=== PATIENT | male | born 1955 | race Caucasian/White ===

== ENCOUNTER 2021-12-02 10:06 | Outpatient (CLI) | payer BC, SELFPAY ==
--- NOTE | 2021-12-02 10:15 | CRLHL7_ITS ---
For Patients: As a result of the Century Cures Act, medical imaging exams and procedure reports are released immediately into your electronic medical record. You may view this report before your referring provider. If you have questions, please contact your health care provider. Indication: Right hemicolectomy. Pre takedown. Technique: Single-contrast enema examination performed. Fluoroscopic time 3 minutes 19 seconds. IMPRESSION: Postop changes partial right colon resection. Right lower quadrant ostomy. Mild sigmoid diverticulosis. No stenosis or obstruction to the flow barium. Normal appearance of the ostomy. Dictated by Alexey Carter MD @ 12/02/2021 12:24:27 PM (Electronically Signed)
--- OUTSIDE RECORDS SUMMARY | 2021-12-28 12:11 | XMS_ITS | Encounter Summary ---
:1955 Author Organization [facility] Address [address] [place] [address] Care Team Providers Name Role Phone Samantha Stauffer MD Primary Care Provider [phone] Encounter Details Date Type Department Care Team Description 08/27/2021 Office Visit Maria Esther Mckeon on's disease (HRC) (Primary Dx); [facility] MD Prem Dyskinesia due to Parkinson's disease (H RC) Neurology [address] [place] [address] [place], [place] [phone] [address] Social History Tobacco Use Types Packs/Day Years Used Date Smoking Tobacco: Never Smokeless Tobacco: Never Alcohol Use Standard Drinks/Week Comments Not Currently 0 (1 standard drink = 0.6 oz pure alcoho l) Sex Assigned at Date Recorded Not on file documented as of this encounter Last Filed Vital Signs Vital Sign Reading Time Taken Comments Blood Pressure 111/66 08/27/2021 9:05 AM CDT Pulse 95 08/27/2021 9:05 AM CDT Temperature - - Respiratory Rate - - Oxygen Saturation - - Inhaled Oxygen Concentration - - Weight 73.5 kg (162 lb) 08/27/2021 9:05 AM CDT Height - - Body Mass Index 20.8 12/12/2019 6:32 AM CDT documented in this encounter Progress Notes Maria Esther Phan MD - 08/27/2021 9:00 AM CDT Chief complaint: Followup Parkinson's. ?? History of present illness I am seeing today this 66-year-old man who comes in accompanied by his in follow-up of his Parkinson's disease. Since our last visit he had a multitude of health problems which I have reviewed through the chart today with an extensive review and also obtained a history from the patient and his . Shortly after he saw me last October he developed increased dyskinesia, and at that time we were concerned also about his dysphagia. He was diagnosed eventually with esophageal achalasia, as well as suffered silent aspiration with the pulmonary abscess for which he was hospitalized in December. He recovered from that, and then he had an EGD with Botox injections for the achalasia, and was doing reasonably well at that time with his rehabilitation, however he developed increased constipation, which eventually led to a colonic perforation for which he was again hospitalized in February and at that time he had fundoplication, and also required partial colectomy because of colonic perforation and now he has an ileostomy, with takedown ileostomy and anastomosis planned for sometime in November. He is receiving still therapies now at home and he has some home health therapies, and he has been gaining weight.In terms of his Parkinson's his symptoms have been up and down typically with every time he had a infection developing more dyskinesias. He does wear off about 30 minutes-1 hour with every dose of Rytary and he is currently taking 1 capsule of the 245 mg strength every 5 or 6 hours. He may be a littlemore forgetful with his medications but denies any hallucinations. He has not had any recent falls, but he does have freezing of gait. He does not freeze on stairs. He has not had any fainting episodes recently. He has been gaining more weight. He feels that his dyskinesias are very well controlled currently with the current dose of Gocovri. He is following the recommendations he has been given for his dysphagia and he has not had any further aspiration episodes. I reviewed the past medical and surgical history, family and social history, current medications, allergies from electronic health record. There have not been any changes otherwise. ?? The review of system was significant for what is mentioned above, and others negative. 111/66, 95, 162 lb. MiniCog 5/5?? UPDRS Motor 22 Impression: 1. Parkinson disease stage 2, while on. 2. Status post bilateral deep brain subthalamic stimulation. Likely needs a new battery. 3. Parkinson disease dyskinesia, well controlled on Gocovri. 4. Dysarthria 5. Dysphagia 6. Recent pulmonary abscess. 7. Recent colonic perforation. 8. Status post recent ileostomy. 9. Esophageal achalasia ?? Discussion: His examination from the Parkinson's standpoint is remarkable stable. This is a good thing and he does not have any dyskinesias at this point. He is battery was last changed about a year ago and they monitor the voltage at home it looks good. He had a rough course of the last several months in the setting of multiple general medical issues. It appears that most of these things are now under control and only next obstacle would be the takedown ileostomy procedure. Hopefully there is not going to be any perioperative problems associated with that. It will be important to carefully regulate his bowel habits after that, and he will pursue that of course through the gastroenterology service. With regard to his Parkinson's we do have the option of increasing the frequency of the Rytary, and we even discussed options for cognitive enhancers although he has cognitive dysfunction currently is minimum. Wedecided not to make any changes but I did tell him that he can take his Rytary every 4 hours if neces joanie while he is awake provided that does not cause an increase in dyskinesias. I reviewed his prescriptions. He recently received a course of therapies, and therefore I am not going to institute any additional therapies at this point. ?? Recommendations: 1. Continue with the same medications for Parkinson's and dyskinesia. 2. It is okay to take the Rytary every 4 or every 5 hours. It is important to try to take it on an empty stomach, however it is probably not advisable to delay a does because of food if you are wearingoff. 3. Continue to exercise as much as possible. 4. Let me know if there is any problems following the next surgery. 5. Otherwise I would like to see you back in 6 months time. Time spent: 44 min Review of chart (notes, data): 8 min History and examination: 17 min Counselin min Coordination of care: 1 min Documentation: 6 min Maria Esther Phan MD. 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
--- OUTSIDE RECORDS SUMMARY | 2021-12-28 12:11 | XMS_ITS | Clinical Summary ---
:1955 Author Organization [facility] Address [address] [place] [address] Care Team Providers Name Role Phone Samantha Stauffer MD Primary Care Provider [phone] Source Comments You are receiving this document as you are listed as the primary care provider,follow-up provider, or the patient has been referred to you for consultation.This is in compliance with the Medicare and Medicaid EHR Incentive Program,which states Providers who transition their patient to another setting of careor provider of care or refers their patient to another provider of care shouldprovide summarycare record for each transition of care or referral. [facility] Allergies No known active allergies Medications Medication Sig Dispensed Refills Start Date End Date Status pravastatin (AKA Take 1 Tab by 90 Tab 3 01/28/2014 Active PRAVACHOL) 80 MG tablet mouth daily at bedtime. ascorbic acid (AKA Take 500 mg by 0 06/18/2014 Active VITAMIN C) 500 MG mouth as needed tablet for Other. cholecalciferol (AKA Take 2,000 0 05/19/2015 Active VITAMIN D3) 2000 UNITS Units by mouth tablet Daily. ibuprofen (MOTRIN) 200 Take 200-400 mg 0 Active MG tablet by mouth every 4 hours as needed for Pain. Amantadine HCl ER Take 2 Capsules 60 Capsule 11 07/15/2020 Active (GOCOVRI) 137 MG CP24 by mouth daily at bedtime. omeprazole (PRILOSEC) Take 20 mg by 0 Active 20 MG capsule mouth daily. Take 1 hour before a meal. citalopram (CELEXA) 10 TAKE 1 TABLET 90 Tablet 3 05/19/2021 Active MG tablet DAILY cyanocobalamin 500 MCG Take by mouth. 0 Active tablet carbidopa-levodopa Take 1 Capsule 360 Capsule 3 08/27/2021 Active (RYTARY) 61.25-245 MG by mouth 4 ER capsule times a day. 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 Dysphagia, oropharyngeal phase 11/19/2020 Dysphagia 11/13/2020 Lumbar radiculopathy 11/02/2018 Vasovagal syncope 05/04/2018 Vitamin D deficiency 01/30/2014 Parkinson's disease 01/28/2014 Hyperlipidemia 01/28/2014 Hyperlipidemia 08/17/2009 Dyskinesia due to Parkinson's disease 08/17/2009 Overview: Parkinson's Disease (PD) Resolved Problems Problem Noted Date Resolved Date Impaired functional mobility, balance, gait, and endurance 0 12/04/2020 12/04/2020 Encounters Date Type Specialty Care Team Description 10/14/2021 Telephone Neurology Maria Esther Phan MD Reena or Authorization Request (Amantadine HCl ER (GOCOVRI) 137 MG CP24) from Last 3 Months Immunizations Name Administration Dates Next Due H1n1 Miv Sanofi 3+ Yr (Injected) 05/05/2009 TDAP (BOOSTRIX) 05/22/2007 Tdap 05/22/2007 Family History Medical History Relation Name Comments Other Father parkinson's Coronary Artery Disease Mother and fath er, both in 70s Hyperlipidemia Mother and father Blindness Brother and sister, daniele enital Cancer, Other Sister brain cancer Relation Name Status Comments Father Mother Brother Sister Social History Tobacco Use Types Packs/Day Years Used Date Smoking Tobacco: Never Smokeless Tobacco: Never Alcohol Use Standard Drinks/Week Comments Not Currently 0 (1 standard drink = 0.6 oz pure alcoho l) Sex Assigned at Date Recorded Not on file Last Filed Vital Signs Vital Sign Reading Time Taken Comments Blood Pressure 111/66 08/27/2021 9:05 AM CDT Pulse 95 08/27/2021 9:05 AM CDT Temperature 36 ??C (96.8 ??F) 12/12/2019 8:22 AM CDT Respiratory Rate 16 12/12/2019 8:22 AM CDT Oxygen Saturation 100% 12/12/2019 9:00 AM CDT Inhaled Oxygen Concentration - - Weight 73.5 kg (162 lb) 08/27/2021 9:05 AM CDT Height 188 cm (6' 2) 12/12/2019 6:32 AM CDT Body Mass Index 20.8 12/12/2019 6:32 AM CDT Plan of Treatment Health Maintenance Due Date Last Done Comments Hep C Screening (Preventive 1955 Services) HepB (1) 1955 COVID-19 Vaccine (#1) 1955 FIT Colon Cancer Screening 2000 Zoster/Shingles (1 of 2) 2006 Adult Preventive Visit 01/28/2015 01/28/2014 Cholesterol 01/28/2019 01/28/2014, 08/17/2009 Pneumococcal 65+ Yrs (1 - 2021 PCV) Influenza (#1) 2022 03/11/2021, 05/05/2009 DTaP/Tdap/Td (4 - Tdap) 06/02/2027 06/02/2017, 05/22/2007, 05/22/2007, Additional history exists HepA Aged Out No longer eligib le based on patient 's age to complete this topic Hib Aged Out No longer eligib le based on patient 's age to complete this topic IPV (Polio) Aged Out No longer eligib le based on patient 's age to complete this topic MCV4 Aged Out No longer eligib le based on patient 's age to complete this topic Medical Devices Implanted Type Area Rn Icu Device Shelf Model / Identifier Expiration Serial / Date Lot [employer] - [id number] DEVICE Right: Medtronic - 2020 [id number] / Implanted: Qty: 1 on 12/12/2019 by Jorge L Kaiser MD at [facility] Neurological [id number] / NA Insurance Payer Benefit Plan / Subscriber ID Effective Dates Phone Addre ss Type Group MEDICARE MEDICARE PART [id number] 2018-Dong [phone] Medicare A t 27 BCBS BCBS OUT OF [id number] 2017-Ignacio [address] [address] [facility] [place] [address] [address] Andrew Pang Personal/Famil Self 1955 [address] Andrew Pang Personal/Famil Self 1955 [address] [address] Advance Directives Latest Code Status on File Code Status Date Activated Date Inactivated Comments Full Code 12/12/2019 8:30 AM 12/12/2019 9:48 PM Care Teams Almond Blancher Operator Relationship Specialty Start Date End Date Samantha Stauffer MD PCP - General Family Practice 12/12/191999 [place] [address]
--- OUTSIDE RECORDS SUMMARY | 2021-12-28 12:11 | XMS_ITS | Encounter Summary ---
:1955 Author Organization [facility] Address [address] [address] Care Team Providers Name Role Phone Samantha Stauffer MD Primary Care Provider [phone] Reason for Visit Reason Comments Refill Encounter Details Date Type Department Care Team Description 05/18/2021 Refill [facility] Neuroscience Maria Esther Reis MD Refill Center Neurology [address] [facility] [address] [facility] [place] [address] [place] [address] [phone] Social History Tobacco Use Types Packs/Day Years Used Date Smoking Tobacco: Never Smokeless Tobacco: Never Alcohol Use Standard Drinks/Week Comments Not Currently 0 (1 standard drink = 0.6 oz pure alcoho l) Sex Assigned at Date Recorded Not on file documented as of this encounter Plan of Treatment Not on filedocumented as of this encounter Visit Diagnoses Not on filedocumented in this encounter Care Teams Supervisor Contingents Relationship Specialty Start Date End Date Samantha Stauffer MD PCP - General Family Practice 12/12/19[address] [place] [address] documented as of this encounter
--- OUTSIDE RECORDS SUMMARY | 2021-12-28 12:11 | XMS_ITS | Encounter Summary ---
:1955 Author Organization [facility] Address [address] [place] [address] Care Team Providers Name Role Phone Samantha Stauffer MD Primary Care Provider [phone] Reason for Visit Reason Comments Prior Authorization Request Amantadine HCl ER (GOCOVRI ) 137 MG CP24 Encounter Details Date Type Department Care Team Description [facility] MD Prem Request (Amantadine Neurology [address] HCl ER (GOCOVRI) [address] MG CP24) [place] [address] [place], [place] [phone] [id number] Social History Tobacco Use Types Packs/Day Years Used Date Smoking Tobacco: Never Smokeless Tobacco: Never Alcohol Use Standard Drinks/Week Comments Not Currently 0 (1 standard drink = 0.6 oz pure alcoho l) Sex Assigned at Date Recorded Not on file documented as of this encounter Nursing Notes Chloé Denny - 10/14/2021 2:35 PM CDT Approved Prior authorization approved Payer: [facility] CaseId:[id number];Status:Approved;Review Type:Prior Auth;Coverage Start Date:09/14/2021;Coverage End Date:10/14/2022; Approval Details Authorized from September 14, 2021 to October 14, 2022 Chloé Denny - 10/14/2021 1:09 PM CDT ePA requested through [facility]. Chloé Denny 10/14/2021, 1:09 PM Sylvia Burgess - 10/14/2021 9:10 AM CDT There is an approval through October 27 Recd fax from [employer], Please initiate new PA- Amantadine HCl ER (GOCOVRI) 137 MG CP24 Please see the providers right fax folder to review the fax for this TE. Sylvia Burgess 10/14/2021, 9:10 AM documented in this encounter Plan of Treatment Not on filedocumented as of this encounter Visit Diagnoses Not on filedocumented in this encounter Care Teams Double End Tenon Operator Relationship Specialty Start Date End Date Samantha Stauffer MD PCP - General Family Practice 12/12/[address] [place] [address] documented as of this encounter
--- OUTSIDE RECORDS SUMMARY | 2021-12-28 12:11 | XMS_ITS | Encounter Summary ---
:1955 Author Organization [facility] Address [address] [place] [address] Care Team Providers Name Role Phone Samantha Stauffer MD Primary Care Provider Encounter Details Date Type Department Care Team Description 07/14/2021 Telephone [facility] Princess Phan, Center Neurology [address] [place] [address] [place] [address] [phone] (Wo rk) Social History Tobacco Use Types Packs/Day Years Used Date Smoking Tobacco: Never Smokeless Tobacco: Never Alcohol Use Standard Drinks/Week Comments Not Currently 0 (1 standard drink = 0.6 oz pure alcoho l) Sex Assigned at Date Recorded Not on file documented as of this encounter Nursing Notes Chloé Denny - 07/16/2021 4:45 PM CST RN called [facility]. This morning RN asked pharmacy and all they needed was a verbal Rx (because they did not receive our electronic Rx). Current PA in our system is approved from 09/27/2020 - 10/27/2021.Rep re-processed and the PA is approved. Transferred to special handling team for copay / shipping. RN asked if this is something pt can provide and then new rep proceeded to tell me the PA was still rejected. They again called the PA specialist who states the PA IS approved. Pt's copay assistance is rejecting so he will need to call them. RN called pt and relayed this, pt verbalizes understanding. Chloé Denny 07/16/2021, 5:09 PM D CARE TEAM LEAD Doris Slaughter RN - 07/16/2021 4:43 PM CST RN looked at RX, PA approval through 10/2021. Doris Slaughter RN 07/16/2021, 4:44 PM D CARE TEAM LEAD Karin Dill - 07/16/2021 4:39 PM CST Pt calling stating they need a PA for this rx, please advise, thanks! Karin Dill 07/16/2021, 4:40 PM D CARE TEAM LEAD Chloé Denny - 07/16/2021 2:05 PM CST Prescription form not necessary. RN spoke with pharmacy this morning and gave verbal. Sheldon Merlos - 07/16/2021 1:06 PM CST Images from the original note were not included. Recd universal prescription/ pharmacy intake form [facility] Placed in providers right fax Sheldon Mays 07/16/2021, 1:07 PM D CARE TEAM LEAD Chloé Denny - 07/16/2021 9:31 AM CST RN called [facility] (ph. [phone]) to give additional information per pt request - Rep transferred RN to pharmacy staff - They needed Rx confirmation because they did not receive our electronic Rx? RN gave verbal. Then called pt and left a voicemail update. Chloé Denny 07/16/2021, 9:40 AM [place] Terrye J - 07/14/2021 12:11 PM CST Pt is calling regarding medication Nicole MUÑOZ - states insurance is asking for more information please call Cristhian Dueñas 07/14/2021, 12:13 PM D CARE TEAM LEAD documented in this encounter Plan of Treatment Not on filedocumented as of this encounter Visit Diagnoses Not on filedocumented in this encounter Care Teams Computing Tutor Relationship Specialty Start Date End Date Samantha Stauffer MD PCP - General Family Practice 12/12/191999 [place] [address] documented as of this encounter
--- OUTSIDE RECORDS SUMMARY | 2021-12-28 12:11 | XMS_ITS | Encounter Summary ---
:1955 Author Organization [email or web address] Address [address], [place] [address] Care Team Providers Name Role Phone Samantha Stauffer MD Primary Care Provider [phone] Reason for Visit Reason Comments Medication Questions Encounter Details Date Type Department Care Team Description 06/11/2021 Telephone [facility] Doris Aruaz gum puller Questions [address] [place] [phone] Social History Tobacco Use Types Packs/Day Years Used Date Smoking Tobacco: Never Smokeless Tobacco: Never Alcohol Use Standard Drinks/Week Comments Not Currently 0 (1 standard drink = 0.6 oz pure alcoho l) Sex Assigned at Date Recorded Not on file documented as of this encounter Nursing Notes Chloé Denny - 06/16/2021 1:20 PM CST RN called pt again. No answer x 2. Voicemail left again. Chloé Denny 06/16/2021, 1:21 PM ACE BRAZER Chloé Denny - 06/14/2021 3:32 PM CST RN called pt to advise him to call [place] Sanjeev Boyer back regarding his rx. No answer. Detailed voicemail left. Chloé Denny 06/14/2021, 3:33 PM ACE BRAZER Doris Arauz RN - 06/11/2021 1:55 PM CST NSC pt. [facility] Merlin called because they are in need of more information to contact the patient. They have attempted 5 times with not luck. They are requesting a call back at [phone] ACE BRAZER documented in this encounter Plan of Treatment Not on filedocumented as of this encounter Visit Diagnoses Not on filedocumented in this encounter Care Teams Medical Asst Relationship Specialty Start Date End Date Samantha Stauffer MD PCP - General Family Practice 12/12/[address] [place] [id number] documented as of this encounter
--- OUTSIDE RECORDS SUMMARY | 2021-12-28 12:11 | XMS_ITS | Encounter Summary ---
:1955 Author Organization [facility] Address [address] [place] [address] Care Team Providers Name Role Phone Samantha Stauffer MD Primary Care Provider [phone] Encounter Details Date Type Department Care Team Description 02/09/2021 Notes/Orders [facility] Neuroscience Mesfin Morgan SLP Center Speech Therap y [address] [place] [address] [id number] [place] [address] [phone] Social History Tobacco Use Types Packs/Day Years Used Date Smoking Tobacco: Never Smokeless Tobacco: Never Alcohol Use Standard Drinks/Week Comments Not Currently 0 (1 standard drink = 0.6 oz pure alcoho l) Sex Assigned at Date Recorded Not on file documented as of this encounter Progress Notes Mesfin Morgan SLP - 02/09/2021 10:30 AM CDT SPEECH THERAPY DISCHARGE NOTE Andrew Pang [phone] Payor: [employer] [facility] [facility] / Plan: [employer] OUT OF STATE / Product Type: Commercial / Andrew Pang was seen for modified barium swallow study on 11/19/2020. Ongoing therapy was recommended, specifically LSVT loud. Chart review indicates that patient did initiate therapy but at a cliniccloser to his home. There are no further visits scheduled here and patient is considered discharged from treatment. Careepisode closed. Please see previous visit documentation for status at last treatment. JB Samuels 02/09/2021 documented in this encounter Plan of Treatment Not on filedocumented as of this encounter Visit Diagnoses Not on filedocumented in this encounter Care Teams Manager Six Sigma Relationship Specialty Start Date End Date Samantha Stauffer MD PCP - General Family Practice 12/12/19[address] [place] [address] documented as of this encounter
--- OUTSIDE RECORDS SUMMARY | 2021-12-28 12:12 | XMS_ITS | Encounter Summary ---
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 [address] [place], [place] [phone] Social History Tobacco Use Types Packs/Day Years Used Date Smoking Tobacco: Never Smokeless Tobacco: Never Alcohol Use Standard Drinks/Week Comments Yes 0 (1 standard drink = 0.6 oz pure alcoho l) Sex Assigned at Date Recorded Not on file documented as of this encounter Progress Notes Maria Esther Phan MD - 08/30/2019 3:15 PM CDT CHIEF COMPLAINT: Followup Parkinson's. ?? HISTORY OF PRESENT ILLNESS: Mr. Pang was seen in the company of his in followup of his Parkinson's. This visit is conducted via video conference due to restrictions related to the current flyod virus epidemic. The patient's is in attendance. The reason for this visit is that the patientand his have noticed that the patient's mobility has slow non considerably over the last few months. His checked his battery and found it to be at 2.6 volts. When he was checked earlier in the summer it was 2.8 volts. They are concerned about needing a new battery in the current environment,since better changes have been labeled as an elective procedure. His surgery was in early 2014. Thiswas about 5 years ago. He has not had any better changes since that time. He has an Activa generator. He reports that he is doing reasonably well overall. He is not aware of any dyskinesia. He has morewearing off. He takes Rytary 3 times a day. 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 He denies cognitive difficulties or hallucinations. He denies any falls. He exercises regularly even now that he is restricted to his home he exercises regularly at home. He avoids any visits with anybody else other than his who also works from home. He is worried about exposure to the floyd virus. He denies any cognitive difficulties besides the mild executive difficulties that he had before. He denies any problems with control of bladder and bowels. He has not had any other new problems. His swallowing has improved with advise from the speech therapist. He has not had any of the presyncopal episodes that he had previously. ?? I reviewed the past medical and surgical history, family and social history, current medications, allergies from electronic health record. There have not been any changes otherwise. ?? The review of system was significant for what is mentioned above, and others negative. ?? General Appearance: Normal. He is very more bradykinetic than typically Mental Status: Alert, oriented, with normal attention, concentration, language, memory, fund of knowledge. Neurologic: Cranial nerves 2-12 are significant for somewhat pressured speech with mild dysarthria. Slight hearing loss, but otherwise normal. He has somewhat decreased facial expression. Motor: No pronator drift. He can stand on either foot without difficulty. He denies any sensory deficits. There are no tremors. Zuvbpi-fygb-rsfplt is accurate. There is mild bradykinesia. He arises from a chair without difficulty, walks with good stride and arm swing, and his posture is normal, balance appearsadequate.. ?? IMPRESSION: 1. Parkinson disease stage 2, while on. 2. Status post bilateral deep brain subthalamic stimulation. Likely needs a new battery. 3. Parkinson disease dyskinesia, well controlled on Gocovri. ?? DISCUSSION: He likely needs a better change at this point. We talked about the pros and cons of going to the hospital for procedure during the epidemic. He would like to put it off as much as possible. We will increase a little his levodopa to compensate for that. He has some wearing off. He has no dyskinesias. We will go to 4 times a day. We discussed the risk implications in view of the current epidemic. We reviewed again the side effects of the Gocovri. We talked about the process of replacing the battery and which hospital he would have to go to. The patient and his had questions regarding isolation of people who are affected by the virus, and what might be his risk by just going to the hospital. After much discussion we decided to try to continue to work with adjusting the medications until it is safer for him to go to the hospital to have a battery change. Of course if this becomes an emergency that might change things. ?? RECOMMENDATIONS: 1. Continue with the same dose of Gocovri. 2. Increase Rytary to 1 capsule 4 times a day. A new prescription was sent. 3. For now we will hold off of changing the battery for his DBS. They will call me next week if theychange their mind particularly after they tried increased dosage of the levodopa. 4. Otherwise follow-up in the clinic will be in 6 months time, sooner if necessary, and of course wewill keep in touch over the phone. ?? This visit was conducted via tele health through video conference. The patient was located at home. The clinician was located in the clinic. Total time 25 min, 65% counseling. Maria Esther Phan MD. 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
--- OUTSIDE RECORDS SUMMARY | 2021-12-28 12:12 | XMS_ITS | Encounter Summary ---
:1955 [facility] Address [address], [place] [address] Care Team Providers Name Role Phone Samantha Stauffer MD Primary Care Provider [phone] Reason for Visit Reason Comments QUESTIONS, GENERAL Encounter Details Date Type Department Care Team Description 07/24/2020 Telephone [facility] Brower, GENERAL [facility] MD Prem Neurology [address] [facility] [address] [place] [phone] (Wo rk) Social History Tobacco Use Types Packs/Day Years Used Date Smoking Tobacco: Never Smokeless Tobacco: Never Alcohol Use Standard Drinks/Week Comments Yes 0 (1 standard drink = 0.6 oz pure alcoho l) Sex Assigned at Date Recorded Not on file documented as of this encounter Nursing Notes Jeannette Porras RN - 07/27/2020 3:36 PM CST Spoke with Andrew and Natasha. Let them know, Dr. 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 They will also be scheduling a follow up appt with him at [facility]. Jeannette Porras RN Maximo Sadler - 07/24/2020 9:50 AM CST Patient is requesting a call back regarding questions he has about covid vaccine and also about DBS battery. Please call back when available, Thank you. Maximo Julio 07/24/2020, 9:52 AM ICE ADMITTING CLERK documented in this encounter Plan of Treatment Not on filedocumented as of this encounter Visit Diagnoses Not on filedocumented in this encounter Care Teams Auto Technician Mechanic Relationship Specialty Start Date End Date Samantha Stauffer MD PCP - General Family Practice 12/12/191999 [place] [address] documented as of this encounter
--- OUTSIDE RECORDS SUMMARY | 2021-12-28 12:12 | XMS_ITS | Encounter Summary ---
:1955 Author Organization [facility] Address [address], [place] [address] Care Team Providers Name Role Phone Samantha Stauffer MD Primary Care Provider [phone] Reason for Referral Medication Prior Authorization (Routine) - Authorized Specialty Diagnoses / Procedures Referred By Contact Refer red To Contact Maria Esther Phan MD [address] [place], [place] [address] Referral ID Status Reason Start Date Expiration Date Visits V isits Requested Authorized [id number] Authorized 1 1 INE HOSTLER Reason for Visit Reason Onset Date Comments Refill 07/15/2020 Amantadine HCl ER (G OCOVRI) 137 MG CP24 Encounter Details Date Type Department Care Team Description [facility]/15[facility] (Am[facility]adine [facility] MD Prem ER (GOCOVRI) 137 MG Neurology [address] [facility] CP24) [address] [place] [address] [phone] (Wo rk) Social History Tobacco Use Types Packs/Day Years Used Date Smoking Tobacco: Never Smokeless Tobacco: Never Alcohol Use Standard Drinks/Week Comments Yes 0 (1 standard drink = 0.6 oz pure alcoho l) Sex Assigned at Date Recorded Not on file documented as of this encounter Nursing Notes Sheldon Mays - 07/15/2020 8:48 AM CST Fax received requesting Amantadine HCl ER (GOCOVRI) 137 MG CP24 from [facility] Requested Prescriptions Pending Prescriptions Disp Refills ??? Amantadine HCl ER (GOCOVRI) 137 MG CP24 60 Capsule 11 Sig: Take 2 Capsules by mouth daily at bedtime. Sheldon Mays 07/15/2020, 8:49 AM INE HOSTLER documented in this encounter Plan of Treatment Not on filedocumented as of this encounter Visit Diagnoses Not on filedocumented in this encounter Care Teams Heat Transfer Technician Relationship Specialty Start Date End Date Samantha Stauffer MD PCP - General Family Practice 12/12/191999 [place] [address] documented as of this encounter
--- OUTSIDE RECORDS SUMMARY | 2021-12-28 12:12 | XMS_ITS | Encounter Summary ---
:1955 Author Organization [facility] Address [address] [place] [address] Care Team Providers Name Role Phone Lurdes Thomas MD Primary Care Provider Reason for Referral Consult/Transfer Care (Routine) - Closed Specialty Diagnoses / Procedures Referred By Contact Refer red To Contact Diagnoses Parkinson's disease (HRC) Richard Phan MD [address] [place], [place] [address] Referral ID Status Reason Start Date Expiration Date Visits Requ ested Visits Authorized [id number] Closed 09/12/2019 12/11/2020 1 1 Scheduling Instructions Your provider has recommended an appoint ment with Jasmine Ramirez. You may call [phone] to schedule your appoi ntment. If you do not schedule an appointment within the next 1 to 3 business days, we will call you to help arrange your appointment. We suggest you call your [facility] insurance company about your coverage and benefits for this appointment. Reason for Visit Reason Comments QUESTIONS, GENERAL UPDATE Encounter Details Date Type Department Care Team Description 09/02/2019 [facility] MD Prem UPDATE Neurology [address] [place] [address] [place], [place] [phone] (Wo rk) Social History Tobacco Use Types Packs/Day Years Used Date Smoking Tobacco: Never Smokeless Tobacco: Never Alcohol Use Standard Drinks/Week Comments Yes 0 (1 standard drink = 0.6 oz pure alcoho l) Sex Assigned at Date Recorded Not on file documented as of this encounter Progress Notes Richard Phan MD - 09/12/2019 1:56 PM CDT Addended by: RICHARD PHAN on: 09/12/2019 01:56 PM Modules accepted: Orders documented in this encounter Nursing Notes Matt Cates RN - 09/12/2019 1:59 PM CDT Relayed message from Dr. Phan to patient/. They stated understanding and stated that sounds like the best plan. They look forward to hearing from Dr. Kaiser and discussing in more detail. Matt Cates RN 09/12/2019, 2:01 PM Richard Phan MD - 09/12/2019 1:55 PM CDT I put in a consultation request with Dr. Kaiser and asked that he schedule a video visit first to address patient's concerns. Matt Cates RN - 09/12/2019 1:12 PM CDT Spoke with patient and and they stated they are wanting to go through with surgery. They are wondering if an in person pre-op physical would be necessary or if this would be done video visit vs right before surgery? Additionally, they would like more insight into the length of procedure and what they can expect the day of surgery. I informed them this information would likely come from Dr. Kaiser's team once a case request is placed. They would appreciate a call from Dr. Kaiser's team about specific such as where is the patient dropped off, do they come out to car to get him and drop him off there? Dr. Phan, please let Dr. Kaiser know they would be interested in getting surgery completed. Matt Cates RN 09/12/2019, 1:24 PM Matt Cates RN - 09/12/2019 11:36 AM CDT [facility] Matt Cates RN 09/12/2019, 11:37 AM Yenny Ray - 09/12/2019 10:43 AM CDT Pt's meir called back to speak with nurse. Please Advise Matt Cates RN - 09/12/2019 9:48 AM CDT Nurse called patient and relayed message from Dr. Phan. He stated understanding and states he would like to discuss this with his and then give us a call back. He states he will likely call back this morning some time. Nurse waiting on return call. Matt Cates RN 09/12/2019, 9:51 AM Richard Phan MD - 09/12/2019 9:10 AM CDT Please notify patient and that we are restarting battery changes at [facility] with Dr. Kaiser, so if they wish to proceed let me know. Here is the information I received from Dr. Kaiser: After meeting with Dr. Kent and the Neurosurgeons and Neurosurgery Leadership team yesterday evening, we have the support to perform generator replacement surgeries. We will speak with each patient who needs generator replacement, and notify them of the precautions in place given the COVID-19 effort as well as the changes in family participation/support (For most this will be limited to drop off and worm picker on the day of surgery. A family member cannot accompany the patient upstairs). If the patient and family are comfortable with the idea of surgery at this point in time, or choosing a date for surgery, we will do that. If they would prefer to wait, we will continue to touch bases with them periodically. Richard Phan MD - 09/02/2019 4:04 PM CDT Noted. Yenny Ray - 09/02/2019 3:27 PM CDT Pt's calling stating that they have decide to hold off on the surgery for now. Pt will continueto take the carbidopa-levodopa and will rethink the surgery in a few months. Please Advise documented in this encounter Plan of Treatment Scheduled Referrals Name Type Priority Associated Diagnoses Order S chedule Neurosurgery (Non Spine) Referral Routine Parkinson's dise ase Ordered: 09/12/2019 Consult-Adult (HRC) documented as of this encounter Visit Diagnoses Diagnosis Parkinson's disease (HRC) - Primary documented in this encounter Care Teams Tobacco Roller Relationship Specialty Start Date End Date Lurdes Thomas MD PCP - General 06/18/14 12/11/19 documented as of this encounter
--- OUTSIDE RECORDS SUMMARY | 2021-12-28 12:12 | XMS_ITS | Encounter Summary ---
:1955 Author [facility] Address [address] [place] [address] Care Team Providers Name Role Phone Lurdes Thomas MD Primary Care Provider Reason for Visit Reason Comments Concerns Battery getting low Encounter Details Date Type Department Care Team Description 08/28/2019 [facility]phone [facility] Concern s (Battery [facility] MD Prem getting low) Neurology [address] [facility] [address] [place] [address] [place], [place] [phone] (Wo rk) Social History Tobacco Use Types Packs/Day Years Used Date Smoking Tobacco: Never Smokeless Tobacco: Never Alcohol Use Standard Drinks/Week Comments Yes 0 (1 standard drink = 0.6 oz pure alcoho l) Sex Assigned at Date Recorded Not on file documented as of this encounter Nursing Notes Abi Laughlin - 08/29/2019 11:30 AM CDT CA contacted patient's spouse and rescheduled to a video visit tomorrow 08/30/2019 at 3:[address] Sylvester Laughlin 08/29/2019, 11:30 AM Cristhian Dueñas - 08/28/2019 4:18 PM CDT Called pt to change appt left message Cristhian Dueñas 08/28/2019, 4:21 PM Matt Cates RN - 08/28/2019 3:04 PM CDT Shoaib: please call patient/, Natasha and assist in scheduling a video visit with Dr. Phan on 09/13/2019. Please help them set up the [facility]ia madhav. Matt Cates RN 08/28/2019, 3:04 PM Maria Esther Phan MD - 08/28/2019 2:35 PM CDT Let's have a video visit Matt Cates RN - 08/28/2019 1:28 PM CDT Nurse spoke with patient's spouse, Natasha and she states that patient was scheduled with with Dr. Phan on 09/13/2019. She states they just took a battery reading last night and she states it read 2.6 and 2.7. She states she can tell it is low because he is walking is a little off, gait seems much slower. She is unsure how long the patient can wait. Dr. Phan, patient's wondering if they should move 09/13/2019 appointment up and/or switch itto a video visit? They stated they would be interested in a video visit if this is appropriate. Please advise. Matt Cates RN 08/28/2019, 1:34 PM Maria Esther Phan MD - 08/28/2019 1:19 PM CDT Blaise, can you check with him? We do have a process in place if it cannot wait, I.e. if the battery is low AND he is experiencing worsening symptoms.Thanks! Devaughn Perry - 08/28/2019 1:12 PM CDT Andrew Pang's spouse, Natasha is calling in regards to patient's battery getting low. Since clinic is currently not seeing any patients, she is requesting for a return call from care team to discuss planfor battery. Please advise. Devaughn Perry 08/28/2019, 1:13 PM documented in this encounter Plan of Treatment Not on filedocumented as of this encounter Visit Diagnoses Not on filedocumented in this encounter Care Teams Papier Mache' Molder Relationship Specialty Start Date End Date Lurdes Thomas MD PCP - General 06/18/14 12/11/19 documented as of this encounter
--- OUTSIDE RECORDS SUMMARY | 2021-12-28 12:12 | XMS_ITS | Encounter Summary ---
:1955 Author Organization [email or web address] Address [address] [place] [address] Care Team Providers Name Role Phone Samantha Stauffer MD Primary Care Provider Reason for Visit Reason Comments QUESTIONS, GENERAL Battery Encounter Details Date Type Department Care Team Description 12/07/2020 Telephone HealthMaria Esther Brower, [facility] MD Prem (Battery ) Neurology [address] [facility] [address] [place] [address] [place], [place] [phone] [id number] (Wo rk) Social History Tobacco Use Types Packs/Day Years Used Date Smoking Tobacco: Never Smokeless Tobacco: Never Alcohol Use Standard Drinks/Week Comments Not Currently 0 (1 standard drink = 0.6 oz pure alcoho l) Sex Assigned at Date Recorded Not on file documented as of this encounter Nursing Notes Chloé Denny - 12/09/2020 3:53 PM CDT RN called pt's spouse back (ph. [phone]) to relay Dr. Phan' recommendations. Verbalizes understanding and they will adjust pt's RYTARY to tid first. RN also sent recommendations via [employer] message. Encouraged to call back with any other questions or concerns. Otherwise RN will follow up withthem next week. Chloé Denny 12/09/2020, 4:03 PM Maria Esther Phan MD - 12/09/2020 3:14 PM CDT 1. I would try too lower the Rytary to tid first, it's the easiest and it will tell us if the problem gets worse or better (which in turn will answer the question whether thi is due to too much medication (dyskinesia) vs. too little (tremors). 2. As the disease progresses the happy zone, the range of useful plasma levels of l-dopa narrows and the response becomes more erratic. In such cases increasing the stimulation may help tremors, while decreasing the stimulation may help dyskinesias. Again, the firs step will answer this question, and rather than adjusting the stimulation we may decide to switch to a less strong Rytary capsule. 3. Yes. Sometimes people mix and match, eg 245 for th first dose, then 195 for each of the remainingdoses. However that results to two different prescriptions and two different copays. Therefore it's preferable to try and manage symptoms with one strength. 4. It is possible, as slowing down the stomach may affect the absorption of the l-dopa. Prilosec cuts down the acid in the stomach, which may reduce the absorption of l-dopa. In that case I would expect symptoms of too little rather than too much medication (see step 1) Chloé Denny - 12/09/2020 2:05 PM CDT RN called pt/pt's spouse to relay Dr. Phan' recommendations. Verbalize understanding. Spouse is stating that pt is doing much better today and was able to ride his bike. Spouse thinks this looks more like tremors (she sees the muscles consistently christopher in his calves), but the pt is reporting that it is dyskinesia. They have the following questions: 1) Is there a preference with which option pt should start with? 2) They do know how to adjust DBS stimulation, but want to know how/why is he suddenly having problems if he has been in the same med regimen and DBS settings for a long time? How low would they decrease it if this is the preferred option? 3) If an Rx was sent for 195 mg capsules, would he still take 1 cap po QID? 4) Want to double check that this couldn't be related to his GI problems (besides his meds)? Chloé Denny 12/09/2020, 2:20 PM Maria Esther Phan MD - 12/09/2020 11:38 AM CDT Doubt related to vaccine. Could be related to Prilosec, but not very likely. They can hold it for a couple of days and see if things get better. It's not clear to me if this is dyskinesia or tremors. Think it is dyskinesia. If they also think that is the case, we may need to lower the dose of the Rytary. Of course it's a capsule, so that is not very easy to do other than try to take it tid instead ofqid, otherwise I can send a new prescription for the 195 mg capsules to a pharmacy close to whereverthey are now. Another option, if the know how to do it, would be to lower slightly the stimulation on the DBS. Maria Esther Phan MD Chloé Denny - 12/09/2020 9:50 AM CDT Spouse called back - She was able to check on the pt's DBS monitor. States The unit is on, the battery is ok and each side says 2.7 Routing to provider to review. Please see message below as well. Chloé Denny 12/09/2020, 9:50 AM Chloé Denny - 12/09/2020 8:12 AM CDT RN spoke with pt's spouse, Pat, she reports the past two days pt's dyskinesias have gotten really bad. Pt had two falls yesterday, he was standing and his legs got weak/and his legs were flailing. Spouse says pt did hit is head, but doesn't think it was very hard. No external injuries to his head or any neuro changes reported. Pt does have some bruising on his back. On Monday, pt was walking just fine and now spouse feels that he really can't do much by himself since he is shaking so much and havingfull body tremors. RN double checked that pt has been taking RYTARY and GOCOVRI as prescribed. The only other recent med change was adding omeprazole (PRILOSEC) 20 MG daily. Spouse is questioning whether or not this is related to pt's GI issues? Seeing GI provider and they will fax over results from recent tests. Pt is still having GI symptoms and the providers have additional testing to do. They have not checked the DBS settings or battery yet and forgot it at home (they are now camping). Spouse will be driving home today to get the monitor and will let us know in a couple of hours. Spouse is also wondering if any of this could be related to the covid-19 vaccine? Pt was fully vaccinated in August. Chloé Denny 12/09/2020, 8:47 AM Maria Esther Phan MD - 12/07/2020 3:06 PM CDT Please brent the patient's to get some additional information. It sounds like this is dyskinesia.They should check the DBS battery settings to make sure DBS was not accidentally turned off. Also make sure he did not miss any doses of the Gocovri or took extra Rytary accidentally. Thanks! AILT Vanesa Lemos - 12/07/2020 12:36 PM CDT Pt's spouse called stating pt is having some issues. Most of pt's right leg is flailing uncontrollably. They are really concerned about fall risk. Please advise and call pt, thanks! Vanesa Lemos 12/07/2020, 12:38 PM Yenny Ray - 12/07/2020 12:26 PM CDT Pt's meir calling stating that at pt's last appt she forgot to ask about pt Battey function. Please Advise documented in this encounter Plan of Treatment Not on filedocumented as of this encounter Visit Diagnoses Not on filedocumented in this encounter Care Teams [facility] Supervisor Relationship Specialty Start Date End Date Samantha Stauffer MD PCP - General Family Practice 12/12/191999 [place] [address] documented as of this encounter
--- OUTSIDE RECORDS SUMMARY | 2021-12-28 12:12 | XMS_ITS | Encounter Summary ---
:1955 Author Organization [facility] Address [address] [place] [address] Care Team Providers Name Role Phone Samantha Stauffer MD Primary Care Provider [phone] Reason for Visit Auth/Cert Specialty Diagnoses / Procedures Referred By Contact Refer red To Contact Diagnoses Parkinson's disease (HRC) Procedures RIGHT DEEP BRAIN STIMULATOR GENERATOR REPLACEMENT Referral ID Status Reason Start Date Expiration Date Visits Requ ested Visits Authorized [id number] 1 1 Encounter Details Date Type Department Care Team Description 12/12/2019 Hospital Encounter Zoroastrianism Operating Clementine Kaiser MD Parkinson's disease Room 3931 [facility] ([facility]) [address] [place] [address] [place] [address] [phone] Social History Tobacco Use Types Packs/Day Years Used Date Smoking Tobacco: Never Smokeless Tobacco: Never Alcohol Use Standard Drinks/Week Comments Yes 0 (1 standard drink = 0.6 oz pure alcoho l) Sex Assigned at Date Recorded Not on file documented as of this encounter Last Filed Vital Signs Vital Sign Reading Time Taken Comments Blood Pressure 101/58 12/12/2019 9:15 AM CDT Standing Pulse 66 12/12/2019 9:00 AM CDT Temperature 36 ??C (96.8 ??F) 12/12/2019 8:22 AM CDT Respiratory Rate 16 12/12/2019 8:22 AM CDT Oxygen Saturation 100% 12/12/2019 9:00 AM CDT Inhaled Oxygen Concentration - - Weight 78.7 kg (173 lb 9.6 oz) 12/12/2019 6:32 AM CDT Height 188 cm (6' 2) 12/12/2019 6:32 AM CDT Body Mass Index 22.29 12/12/2019 6:32 AM CDT documented in this encounter Discharge Instructions Discharge InstructionsRubina Gomez RN - 12/12/2019 9:00 AM CDT Images from the original note were not included. Deep Brain Stimulation (DBS) Surgery: What to Expect at Home Your recovery During your surgery, the doctor implanted electrodes in your brain and a pulse generator under the skin of your chest. Then the doctor connected the electrodes to the generator. This was done with a wire running under the skin of your head, neck, and shoulder. You will probably have to stay in the hospital for a day or two after surgery. You may have some soreness where your skin was cut. After you go home, you will likely have to go back to the doctor a number of times. The doctor will adjust the system so that it works best for your symptoms. This care sheet gives you a general idea about how long it will take for you to recover. But each person recovers at a different pace. Follow the steps below to get better as quickly as possible. How can you care for yourself at home? Activity ? Rest when you feel tired. ? Be active. Walking is a good choice. ? For 4 to 6 weeks: ? Avoid activities that strain your chest or upper arm muscles. This includes pushing a pre press manager or vacuum and mopping floors. It also includes swimming, or swinging a golf club or tennis racquet. ? Do not raise your arm (the one on the side of your body where the pulse generator is located) above your shoulder. ? Allow your body to heal. Don't move quickly or lift anything heavy until you are feeling better. ? Many people are able to return to work within 1 to 2 weeks after surgery. Diet ? You can eat your normal diet. If your stomach is upset, try bland, low-fat foods like plain rice, broiled chicken, toast, and yogurt. Medicines ? Your doctor will tell you if and when you can restart your medicines. He or she will also giveyou instructions about taking any new medicines or about taking the same medicines in a new way. ? Be safe with medicines. Read and follow all instructions on the label. ? If the doctor gave you a prescription medicine for pain, take it as prescribed. Incision care ? If you have strips of tape on the incision, leave the tape on for a week or until it falls off. ? Keep the incision dry while it heals. Your doctor may recommend sponge baths for about 7 days,but don't get the incision wet. Your doctor will let you know when you may take showers. After a shower, pat the incision dry. ? Don't use hydrogen peroxide or alcohol on the incision. They can slow healing. You may cover the area with a gauze bandage if it oozes fluid or rubs against clothing. Change the bandage every day. ? Don't take a bath or get into a hot tub for the first 2 weeks, or until your doctor tells you it is okay. Ice ? If the area feels sore or tender, put ice or a cold pack on it for 10 to 20 minutes at a time.Put a thin cloth between the ice and your skin. Follow-up care is a yap part of your treatment and safety. Be sure to make and go to all appointments, and call your doctor if you are having problems. It's also a good idea to know your test results and keep a list of the medicines you take. When should you call for help? Call 911 anytime you think you may need emergency care. For example, call if: ? You have a seizure. ? You passed out (lost consciousness). ? You are confused or you don't know where you are. ? You are very sleepy or hard to wake up. ? You have chest pain, are short of breath, or cough up blood. ?? Call your doctor now or seek immediate medical care if: ? You have pain that doesn't get better after you take pain medicine. ? You have symptoms of infection, such as: ? Increased pain, swelling, warmth, or redness. ? Red streaks leading from the area. ? Pus draining from the area. ? A fever. ? You are bleeding a lot from the incision. ? You are sick to your stomach or can't drink fluids. ? You have signs of a blood clot in your leg (called a deep vein thrombosis), such as: ? Pain in your calf, back of the knee, thigh, or groin. ? Redness or swelling in your leg. ??Watch closely for changes in your health, and be sure to contact your doctor if you have problems. Where can you learn more? 1. Go to https://EverCharge/Avenue Rightrary or Veacon/[email or web address]. 2. Enter D150 in the search box. Current as of: April 09, 2019?Content Version: 12.4 ?? [employer]. Care instructions adapted under license by your healthcare professional. If you have questions abouta medical condition or this instruction, always ask your healthcare professional. [employer] disclaims any warranty or liability for your use of this information. Medications: Switching between Tylenol and Ibuprofen every 4 hours will help you manage your pain as well. For example, Tylenol at 10am (according to over the counter instructions) Then at taking Ibuprofen at 2pm (according to over the counter instructions). Then taking Tylenol at 6pm. documented in this encounter Medications at Time of Discharge Medication Sig Dispensed Refills Start Date End Date ascorbic acid (AKA Take 500 mg by 0 06/18/2014 VITAMIN C) 500 MG tablet mouth as needed for Other. cholecalciferol (AKA Take 2,000 Units 0 5 VITAMIN D3) 2000 UNITS by mouth Daily. tablet ibuprofen (MOTRIN) 200 MG Take 200-400 mg by 0 tablet mouth every 4 hours as needed for Pain. pravastatin (AKA Take 1 Tab by 90 Tab 3 01/28/2014 PRAVACHOL) 80 MG tablet mouth daily at bedtime. cephalexin (KEFLEX) 500 Take 1 Capsule by 3 Capsule 0 12/1112/13/2019 MG capsule mouth every 8 hours for 1 day. Amantadine HCl ER Take 2 Capsules by 60 Capsule 11 08/01/2019 07/15/2020 (GOCOVRI) 137 MG CP24 mouth daily at bedtime. carbidopa-levodopa Take 1 Capsule by 360 Capsule 3 0 11/02/2020 (RYTARY) 61.25-245 MG ER mouth 4 times a capsule day. citalopram (CELEXA) 10 MG Take 1 Tablet by 90 Tablet 3 05/2205/24/2020 tablet mouth daily. sertraline (AKA ZOLOFT) Take 1 tablet by 90 tablet 3 201411/13/2020 50 MG tablet mouth daily (every 24 hours). documented as of this encounter Progress Notes Rubina Gomez RN - 12/12/2019 9:49 AM CDT DISCHARGE O: Patient safely discharged to home. D: Patient is alert and oriented x 4. Pt up independently . Discharge criteria met. Pt was able to tolerate po fluids, snacks, and use the restroom. Pt was vitally stable at discharge. A: Discharge instructions and medications reviewed and given to patient and family. Written medication education material provided on Keflex including possible side effects. Prescriptions [facility] in [place]. Belongings checklist reviewed with patient and belongings sent. R: Patient and family verbalizes understanding and teaches back discharge instructions. Patient discharged by: wheelchair with staff. Rubina Gomez RN 9:50 AM 12/12/2019 documented in this encounter H&P Notes Jorge L Kaiser MD - 12/12/2019 9:25 AM CDT Surgery Update for Preop History and Physical For 12/12/2019 scheduled procedure Update to H&P includes: Patient and/or family denies any health changes since the H&P This patient has been evaluated by me today and has been found to be a suitable candidate for surgery. Jorge L Kaiser MD 12/12/2019 Source Note - ProviderRomeo MD - 12/09/2019 12:00 AM CDT documented in this encounter Procedure Notes Jorge L Kaiser MD - 12/12/2019 8:17 AM CDT [facility] Operative Note Surgery Date: 12/12/2019 Primary Surgeon: Jorge L Kaiser M.D. Assistants: None Pre-op Diagnosis: Parkinson's Disease, Right Activa PC Infraclavicular Implantable Pulse Generator (IPG) End of Life Procedure: 1) Replacement of Right Activa PC IPG, Connectin of Two Extension Cables 2) Intraoperative impedence assessment, interrogation and programming (Preop interrogation, programming of the new generator and intra-operative impedence assessment took 8-10 minutes) Implants: Activa PC Model number [id number] Serial No: [id number] Post-op Diagnosis: Parkinson's Disease, Right Infraclavicular IPG End of Life EBL: Less than 20 mL Specimens: None Complications: None Findings: Preoperative assessment of the Right Activa PC IPG was performed, and the impedence was normal for all contacts on both DBS leads. The preoperative program was: Left STN C+/0- 2.7V (+0.2V) 60 Microsecond PW 150 Hz Frequency Right STN 9-.10+ 2.6V (+0.2V) 60 Microsecond PW 150 Hz Frequency After induction of Propofol MAC anesthesia, the patient was maintained supine and the operative field prepped and draped in normal sterile fashion. The right infraclavicular incision was identified, local anesthetic infiltrated, and then the right wound opened and the generator replaced with an ActivaPC generator. Laterality was maintained as the extension cable in the anterior slot of the old Activa PC was placed in the anterior slot of the new Activa PC IPG, and the extension cable in the posterior slot of the old Activa PC was placed in the posterior slot of the new Activa PC IPG. All connections were secured to torque. The new generator was placed in the infraclavicular pocket with the excess extension cable coiled behind the generator. The generator was then secured to the back wall of the infraclavicular pocket. The wound was then irrigated profusely with antibiotic containing solution, and closed in layers.The right and left systems were programmed to the same settings as the old generator, respecting laterality, and turned on. Intraoperative impedence was assessed and was normal for all contacts. Preop interrogation, programming of the new generator and intra-operative impedence assessment took 8-10 minutes. Jorge L Kaiser MD documented in this encounter Plan of Treatment Not on filedocumented as of this encounter Procedures Procedure Name Priority Date/Time Associated Comments Diagnosis REPLACEMENT DEEP 12/12/2019 7:09 AM Parkinson's diseas e BRAIN STIMULATOR CDT (HRC) GENERATOR 2019 NOVEL STAT 12/12/2019 6:06 AM Results f or this CORONAVIRUS CDT procedure are i n the results section. documented in this encounter Results 2019 Novel Coronavirus - Rapid (COVID-19) (12/12/2019 6:06 AM CDT) [facility] Method Time Signature COVID-19 Not Not 12/12/2019 [facility] Interpretation Detected Detected 7:04 AM CDT LABORATORY Specimen Anatomical Collection Method Collection Time Receive d Time (Source) Location / / Volume Laterality Swab (Source Non-blood 12/12/2019 6:06 AM 0 6:09 Required) Collection / CDT AM CDT Unknown Narrative [facility] - 12/12/2019 7:04 A M CDT Test performed by real-time PCR. This test has been authorized by the FDA under an Emergency Use Authorization (EUA) for use by authorized laboratories. Jorge L Kaiser MD LAB_1 Performing Organization Address City/State/ZIP Code Phon e Number [facility] [address] [place] [address] documented in this encounter Visit Diagnoses Diagnosis Parkinson's disease (HRC) - Primary documented in this encounter Admitting Diagnoses Diagnosis Parkinson's disease (HRC) documented in this encounter Administered Medications Inactive Administered Medications - up to 3 most recent administrations Medication Order MAR Action Action Date Dose Rate Site bupivacaine-epinephrine PF Given 12/12/2019 7:58 AM CDT 20 mL (SENSORCAINE) 0.25% -1:972256 injection ONCE PRN, Starting on Stacey 12/12/19 at 0758, Until Stacey 12/12/19 at 2143, Intra-op gentamicin 80 mg-clindamycin 900 mg in sodium Given 8:02 AM CDT 100 mL chloride 1000 mL (DABS) irrigation solut ion ONCE PRN, Starting on Stacey 12/12/19 at 0802, Intra-op lactated ringers infusion Started 12/12/2019 6:36 AM CDT 25 mL/hr 25 mL/hr 25 mL/hr, Intravenous, CONTINUOUS, Starting on Stacey 12/12/19 at 0615, Administer on all preop surgery patients, ages 12 and older, unless specified differently in the Protocol for Preop Initiation of IV fluids Order Set., Pre-op lidocaine PF (XYLOCAINE) 1 % injection - ADS Override Pull Starting on Stacey 12/12/19 at 0532, For 1 dose, Benita Gomez ndy: cabinet override lidocaine PF (XYLOCAINE) 1 % injection Given 12/12/2019 6:37 AM CDT 0.1 mL Left Arm 0.1-0.3 mL 0.1-0.3 mL, Subcutaneous, ONCE, On Stacey 12/12/19 at 0615, For 1 dose, Lidocaine to be used for IV starts unless patient refuses., Pre-op lidocaine PF (XYLOCAINE) 1 % injection 0 .1-0.3 mL 0.1-0.3 mL, Subcutaneous, PRN, Other, for additional I V starts, Starting on Stacey 12/12/19 at 0555, Pre-op documented in this encounter Active and Recently Administered Medications Times are shown in CDT. Scheduled Medication Order 12/10/2019 12/11/2019 12/12/2019 carbidopa-levodopa (RYTARY) 61.25-245 MG extended rele ase per capsule 1 Capsule 1200 (Due)1600 (Due) 1 Capsule, Oral, QID, First dose on Stacey 12/12/19 at 1200, Swallow capsule whole, do not crush or chew. For Parkinson's disease. Administer within 15 minutes before or after time due. ceFAZolin (aka ANCEF) 2 g in dextrose 100 ml IVPB (COMPLETED) 0735 (Given - Provider: Luis Anaya, SALES CENTER ASSOCIATE, RADIATION CONTROL SPECIALIST) 2 g, Intravenous, Administer over 30 Min utes, ONCE, Stacey 12/12/19 at 0615, For 1 dose, Infuse within 60 minutes prior to incision. Re-dose 1 gram IV every 4 hours after initial dose until incision closed. Re-dose if more than 1.5 L of blood los s. Pharmacy may adjust for renal insufficiency., Pre-op citalopram (CeleXA) tablet 10 mg 0900 (Due) 10 mg, Oral, DAILY, First dose on Stacey at 0900, OP SIG:Take 1 Tablet by mouth daily. lidocaine PF (XYLOCAINE) 1 % injection 0.1-0.3 mL (COMPLETED) 0637 (Given - Provider: Rubina Gomez, JAMAL) 0.1-0.3 mL, Subcutaneous, ONCE, Stacey 12/11 at 0615, For 1 dose, Lidocaine to be used for IV starts unless patient refuses., Pre-op pravastatin (PRAVACHOL) tablet 80 mg 80 mg, Oral, HS, First dose on Stacey 12/12/19 at 2100 sertraline (ZOLOFT) tablet 50 mg 09 (Due) 50 mg, Oral, DAILY (NS), First dose on T 12/12/19 at 0900, OP SIG:Take 1 tablet by mouth daily (every 24 hours). Continuous Medication Order 12/10/2019 12/11/2019 12/12/2019 lactated ringers infusion (CANCELED) 0636 (Started - Provider: Rubina Gomez RN)0817 (Anesthesia Fluid - Provider: Luis Anaya APRN, RADIATION CONTROL SPECIALIST) 25 mL/hr, Intravenous, at 25 mL/hr, CONT INUOUS, Starting Stacey 12/12/19 at 0615, Administer on all preop surgery patients, ages 12 and older, unless specified differently in the Protocol for Preop Initiation of IV fluids Order Set., Pre-op NaCl 0.9%-KCl 20 mEq/liter infusion 0900 (Due) Intravenous, at 75 mL/hr, CONTINUOUS, Starting Stacey 12/12/19 at 09 00, Post-op PRN Medication Order 12/10/2019 12/11/2019 12/12/2019 acetaminophen (TYLENOL) tablet 650 mg 650 mg, Oral, Q4H PRN, Other, Mild Pain (pain score 1-4), Starting Stacey 12/12/19 at 0830, Every 4 hours while awake as needed. Give for mild pain or if patient prefers acetaminophen over other options for pain (all pain scores)., Post-op benzocaine-menthol (CEPACOL) lozenge 1 Lozenge 1 Lozenge, Oral, Q2H PRN, Throat Pain, Starting [facility] 12/12/19 at 0 957 bisacodyl (DULCOLAX) rectal suppository 10 mg 10 mg, Rectal, DAILY PRN, Other, Moderat e Constipation, Starting [facility] 12/12/19 at 0830, If unable to take oral senna (SENOKOT) or senna (SENOKOT) is ineffective., Post-op bupivacaine-epinephrine PF (SENSORCAINE) 0.25% -1:137453 injecti on 0758 (Given - Provider: Jorge L Kaiser MD) ONCE PRN, Starting [facility] 12/12/19 at 0758, Intra-op gentamicin 80 mg-clindamycin 900 mg in s odium chloride 1000 mL (DABS) irrigation solution 0802 (Given - Provid er: Jorge L Kaiser MD) ONCE PRN, Starting [facility] 12/12/19 at 0802, Intra-op HYDROcodone-acetaminophen (NORCO) 5-325 MG per tablet 1-2 Tablet 1-2 Tablet, Oral, Q4H PRN, Other, Modera te Pain (pain score 5-7), Starting [facility] 12/12/19 at 0830, Post-op HYDROmorphone (DILAUDID) injection 0.3-0.5 mg 0.3-0.5 mg, Intravenous, Q2H PRN, Other, Severe Pain (pain score 8-10) if unable to take oral medications or for pain score increasing by 3 in 30 minutes, Starting [facility] 12/12/19 at 1216, May administer 1 hour after ORAL opioid administration if given for pain score escalation. Do NOT administer at the same time as ORAL opioids. HOLD if on SHED BOSS., Post-op lidocaine (UROJET) 2 % prefilled syringe Urethral, PRN, Local Anesthetic, Urethra l Discomfort, Starting Stacey 12/12/19 at 0830, Consider using for any adult male or any patients with a history of painful urinary catheter insertion and no lidocaine allergy., Post-op lidocaine PF (XYLOCAINE) 1 % injection 0.1-0.3 mL 0.1-0.3 mL, Subcutaneous, PRN, Other, fo r additional IV starts, Starting Stacey 12/12/19 at 0555, Pre-op ondansetron (ZOFRAN) injection 4 mg 4 mg, Intravenous, Q6H PRN, Nausea, Vomi ting, Starting Stacey 12/12/19 at 0830, Post-op oxyCODONE-acetaminophen (PERCOCET) 5-325 MG per tablet 1-2 Table t 1-2 Tablet, Oral, Q4H PRN, Other, Severe Pain (pain score 8-10) if able to take oral medication, Starting Stacey 12/12/19 at 0830, Do NOT administer at the same time as IV opioids. HOLD if on SHED BOSS., Post-op senna (SENOKOT) tablet 1-2 Tablet 1-2 Tablet, Oral, BID PRN, Other, Modera te Constipation, Starting Stacey 12/12/19 at 0830, Hold for loose stools, Post-op documented in this encounter Care Teams Coin Rolling Machine Operator Relationship Specialty Start Date End Date Samantha Stauffer MD PCP - General Family Practice 12/12/191999 [place] [address] documented as of this encounter
--- OUTSIDE RECORDS SUMMARY | 2021-12-28 12:12 | XMS_ITS | Encounter Summary ---
:1955 Author Organization [facility] Address [address], [place] [address] Care Team Providers Name Role Phone Lurdes Thomas MD Primary Care Provider Reason for Visit Reason Comments Prior Authorization Request update needed - [facility] Encounter Details Date Type Department Care Team Description 10/10/2019 Telephone ECOPartMaria Esther Walker A [facility] MD Prem Request (update needed Neurology [address] [facility]) [address] [place] [address] [place], [place] [phone] Social History Tobacco Use Types Packs/Day Years Used Date Smoking Tobacco: Never Smokeless Tobacco: Never Alcohol Use Standard Drinks/Week Comments Yes 0 (1 standard drink = 0.6 oz pure alcoho l) Sex Assigned at Date Recorded Not on file documented as of this encounter Nursing Notes Matt Cates RN - 10/10/2019 11:42 AM CDT Images from the original note were not included. Medication approved. Nurse called Natasha and relayed her. She stated understanding and will make sure he gets medication. Matt Cates RN 10/10/2019, 11:43 AM Matt Cates RN - 10/10/2019 11:12 AM CDT Nurse requested ePA through Epic. Matt Cates RN 10/10/2019, 11:12 AM Maria Esther Phan MD - 10/10/2019 11:07 AM CDT Blaise, can you please see if there is anything we need to do? Jeannette Dee - 10/10/2019 10:53 AM CDT [facility] status for [facility] for [facility]. Pt needs this medication by Monday. Please call pt back and advise. THanks Jeannette Dee 10/10/2019, 10:53 AM documented in this encounter Plan of Treatment Not on filedocumented as of this encounter Visit Diagnoses Not on filedocumented in this encounter Care Teams Automatic Beading Lathe Operator Relationship Specialty Start Date End Date Lurdes Thomas MD PCP - General 06/18/14 12/11/19 documented as of this encounter
--- OUTSIDE RECORDS SUMMARY | 2021-12-28 12:12 | XMS_ITS | Encounter Summary ---
:1955 Author Organization [facility] Address [address], [place] [address] Care Team Providers Name Role Phone Lurdes Thomas MD Primary Care Provider Reason for Visit Procedure/Equipment (Routine) - Incomplete Specialty Diagnoses / Procedures Referred By Contact Refer red To Contact Diagnoses Dysphagia, oropharyngeal phase Bertohogeorgie, Maria Esther Amaro MD Procedures FL Video Swallow Study [address] [place], [place] [address] Referral ID Status Reason Start Date Expiration Date Visits V isits Requested Authorized [id number] Incomplete 06/24/2019 09/22/2020 1 1 Encounter Details Date Type Department Care Team Description 06/24/2019 Ancillary [facility] Parashos, Dysphagia, Procedure [facility] Maria Esther Amaro MD oropharyngeal phase Radiology Fluoro [address] [place] [address] [place] [address] [facility] [phone] [place] [address] Social History Tobacco Use Types Packs/Day Years Used Date Smoking Tobacco: Never Smokeless Tobacco: Never Alcohol Use Standard Drinks/Week Comments Yes 0 (1 standard drink = 0.6 oz pure alcoho l) Sex Assigned at Date Recorded Not on file documented as of this encounter Plan of Treatment Not on filedocumented as of this encounter Procedures Procedure Name Priority Date/Time Associated Diagnosis Comme nts FL VIDEO SWALLOW Routine 06/24/2019 4:10 PM Dysphagia, Resul ts for this STUDY OUTPATIENT THERAPIST oropharyngeal phase procedur e are in the results section. documented in this encounter Results FL Video Swallow Study (06/24/2019 4:10 PM OUTPATIENT THERAPIST) Anatomical Region Laterality Modality Neck, Chest Radio Fluoroscopy Specimen (Source) Anatomical Collection Method Collection Time Re ceived Time Location / / Volume Laterality 06/24/2019 4:10 PM OUTPATIENT THERAPIST Narrative 06/24/2019 5:11 PM OUTPATIENT THERAPIST EXAM: FL VIDEO SWALLOW STUDY LOCATION: [facility] DATE/TIME: 06/24/2019 4:10 PM INDICATION: Difficulty swallowing. COMPARISON: None. TECHNIQUE: Routine. FINDINGS: Fluoroscopy was provided during a swallo wing study with Speech Pathology. The patient was administered barium of various consistencies. Shallow laryngeal penetration without aspiration with thin barium consistency. No evidence of laryngeal pe netration or aspiration with applesauce, nectar,thin,or cracker barium consistency. The patient swallowed a barium tablet which passed probably to the esophagus. ??Please see Speech Pathology report for full details and recommendations. Fluoroscopy time: ??48 seconds Dose: ??3.21 mGy Total number of fluoroscopic images: ??1 141 IMPRESSION: 1. ??Please see the Speech Pathologist's note for diet recommendations. 2. ??Shallow laryngeal penetration witho ut aspiration with thin barium consistency. 3. ??No evidence of laryngeal penetratio n or aspiration with other barium consistencies as described above. Procedure Note Carlos Paul MD - 06/24/2019Formatt ing of this note might be different from the original. EXAM: FL VIDEO SWALLOW STUDY LOCATION: [facility] DATE/TIME: 06/24/2019 4:10 PM INDICATION: Difficulty swallowing. COMPARISON: None. TECHNIQUE: Routine. FINDINGS: Fluoroscopy was provided during a swallo wing study with Speech Pathology. The patient was administered barium of various consistencies. Shallow laryngeal penetration without aspiration with thin barium consistency. No evidence of laryngeal penetration or asp iration with applesauce, nectar,thin,or cracker barium consistency. The patient swallowed a barium tablet which passed probably to the esophagus. Please see Speech Pathology report for full details and re commendations. Fluoroscopy time: 48 seconds Dose: 3.21 mGy Total number of fluoroscopic images: 114 1 IMPRESSION: 1. Please see the Speech Pathologist's n ote for diet recommendations. 2. Shallow laryngeal penetration without aspiration with thin barium consistency. 3. No evidence of laryngeal penetration or aspiration with other barium consistencies as described above. Maria Esther Phan MD RAD FL documented in this encounter Visit Diagnoses Diagnosis Dysphagia, oropharyngeal phase documented in this encounter Administered Medications Active Administered Medications - up to 3 most recent administrations Medication Order MAR Action Action Date Dose Rate Site barium sulfate (VARIBAR NECTAR) 40 Given 06/24/2019 4:12 PM OUTPATIENT THERAPIST 20 mL % oral suspension 20 mL 20 mL, Oral, ONCE (NON-SCHEDULED), Starting on 06/24/19 at 1611, Until Discontinued, For 3 doses Inactive Administered Medications - up to 3 most recent administrations Medication Order MAR Action Action Date Dose Rate Site barium sulfate (ENTERO VU) Given 06/24/2019 4:12 PM OUTPATIENT THERAPIST 20 mL suspension 20 mL 20 mL, Oral, ONCE (NON-SCHEDULED), Starting on Mon06/24/19 at 1611, For 1 dose barium sulfate (EZ-DISK) tablet 700 mg Given 06/24/2019 4:12 PM OUTPATIENT THERAPIST 700 mg 700 mg, Oral, ONCE (NON-SCHEDULED), Starting on 06/24/19 at 1611, Until Mon06/24/19 at 1612, For 1 dose barium Sulfate (VARIBAR PUDDING) oral pudding 5 Given 06/24/2019 4:12 PM OUTPATIENT THERAPIST 5 mL mL 5 mL, Oral, ONCE (NON-SCHEDULED), Starting on 06/24/19 at 1611, Until Mon06/24/19 at 1612, For 1 dose documented in this encounter Care Teams Network Management Specialist Relationship Specialty Start Date End Date Lurdes Thomas MD PCP - General 06/18/14 12/11/19 documented as of this encounter
--- OUTSIDE RECORDS SUMMARY | 2021-12-28 12:12 | XMS_ITS | Encounter Summary ---
:1955 [facility] Address [address], [place] [address] Care Team Providers Name Role Phone Lurdes Thomas MD Primary Care Provider Reason for Referral (Routine) - Incomplete Specialty Diagnoses / Procedures Referred By Contact Refer red To Contact Diagnoses Parkinson's disease (HRC) Jorge L Kaiser MD Procedures Case Request OR - Neurosurgery: RIGHT DEEP BRAIN STIMULATOR GENERATOR REPLACEMENT [address] [place] [address] Referral ID Status Reason Start Date Expiration Date Visits V isits Requested Authorized [id number] Incomplete 09/18/2019 12/17/2020 1 1 Encounter Details Date Type Department Care Team Description 09/18/2019 Prep for [facility] Jorge L Kaiser MD Parkinson's disease 3931 Neurosurgery 3931 [facility] (Primary Dx) [address] [place] [address] [place] [address] [phone] Social History Tobacco Use Types Packs/Day Years [...] Primary documented in this encounter Care Teams Grill Cook Relationship Specialty Start Date End Date Serum, Lurdes C, MD PCP - General 06/18/14 12/11/19 documented as of this encounter
--- OUTSIDE RECORDS SUMMARY | 2021-12-28 12:12 | XMS_ITS | Encounter Summary ---
:1955 Author Organization [facility] Address [address] [place] [address] Care Team Providers Name Role Phone Samantha Stauffer MD Primary Care Provider [phone] Reason for Referral Therapies (Routine) - Closed Specialty Diagnoses / Procedures Referred By Contact Refer red To Contact Diagnoses Parkinson's disease (HRC) Dysphagia, unspecified type Maria Esther Phan MD [address] [place], [place] [address] Referral ID Status Reason Start Date Expiration Date Visits Requ ested Visits Authorized [id number] Closed 10/28/2020 10/28/2021 999 999 Scheduling Instructions Your provider has recommended an appoint ment with a [facility] Speech Therapist. Please call for your appointment you may call [facility] Outpatient [facility] at [phone]. We suggest you call your [employer] insurance company about your coverage and benefits for this appointment. Reason for Visit Reason Comments Pain Stomach and trouble swallowi ng Encounter Details Date Type Department Care Team Description 10/28/2020 [facility] MD Prem trouble swallowing) [facility] [address] [address] [place], [place] [phone] (Wo rk) Social History Tobacco Use Types Packs/Day Years Used Date Smoking Tobacco: Never Smokeless Tobacco: Never Alcohol Use Standard Drinks/Week Comments Yes 0 (1 standard drink = 0.6 oz pure alcoho l) Sex Assigned at Date Recorded Not on file documented as of this encounter Nursing Notes Chloé Denny - 11/04/2020 3:04 PM CDT RN relayed this to pt's spouse, Pat. Verbalizes understanding. Chloé Denny 11/04/2020, 3:14 PM Maria Esther Phan MD - 11/04/2020 12:53 PM CDT I do not have a specific recommendation for PD Chloé Denny - 11/04/2020 10:49 AM CDT ARMIDAI RN called pt's spouse back and relayed provider's message. RN also provided the number to call and schedule the swallow study (ph. [phone]) Spouse reports that pt went to see a provider at [facility] last (10/29) and was prescribed generic Prilosec. This has been helpful thus far. They also saw pt's PCP this morning (11/04) who is recommending a GI consult. Dr. Phan: Do you have a preferred elevated guard you would recommend to someone who has PD? Chloé Denny 11/04/2020, 10:55 AM Maria Esther Phan MD - 11/04/2020 10:23 AM CDT Lyle Luevano, please see my response below; do you mind calling the patient's with this infomation? Thanks! Vanesa Lemos - 11/04/2020 10:07 AM CDT Pt's spouse called back regarding this. Please advise and call them back, thanks! Vanesa Lemos 11/04/2020, 10:08 AM Maria Esther Phan MD - 10/28/2020 9:18 AM CDT Although swallowing can be affected by PD, the abdominal symptoms are concerning for a GI issue. He should see the PCP for the abdominal symptoms. I also entered an order for swallow evaluation. Vanesa Lemos - 10/28/2020 8:53 AM CDT Pt's spouse called stating pt is having trouble swallowing. Pt is also having stomach pain in the upper GI Track (stomach and side area) States pt can't burp. Please advise and call Natasha. Thanks! Vanesa Lemos 10/28/2020, 8:54 AM documented in this encounter Plan of Treatment Scheduled Referrals Name Type Priority Associated Diagnoses Order S chedule Speech Therapy Referral Routine Parkinson's dise ase (HRC) Ordered: 10/28/2020 Dysphagia, unspecified type documented as of this encounter Visit Diagnoses Diagnosis Dysphagia, unspecified type - Primary Parkinson's disease (HRC) documented in this encounter Care Teams Special Programs Director Relationship Specialty Start Date End Date Samantha Stauffer MD PCP - General Family Practice 12/12/[address] [place] [id number] documented as of this encounter
--- OUTSIDE RECORDS SUMMARY | 2021-12-28 12:12 | XMS_ITS | Encounter Summary ---
:1955 Author Organization [facility] Address [address], [place] [address] Care Team Providers Name Role Phone Samantha Stauffer MD Primary Care Provider [phone] Reason for Visit Reason Comments Labs Needed Encounter Details Date Type Department Care Team Description 11/27/2019 Telephone [facility] 393 1 Neurosurgery Aurora Ruiz, RN Labs Needed [address] [place], [place] [id number] Social History Tobacco Use Types Packs/Day Years Used Date Smoking Tobacco: Never Smokeless Tobacco: Never Alcohol Use Standard Drinks/Week Comments Yes 0 (1 standard drink = 0.6 oz pure alcoho l) Sex Assigned at Date Recorded Not on file documented as of this encounter Nursing Notes Aurora Ruiz, RN - 11/27/2019 3:36 PM CDT Covid test ordered. MRSA test ordered and faxed to [facility]. Emailed surgical teaching information. documented in this encounter Plan of Treatment Not on filedocumented as of this encounter Visit Diagnoses Diagnosis Preop testing - Primary Preoperative examination, unspecified documented in this encounter Care Teams Coordinator Of Health Services Relationship Specialty Start Date End Date Samantha Stauffer MD PCP - General Family Practice 12/12/[address]1999 [place] [address] documented as of this encounter
--- OUTSIDE RECORDS SUMMARY | 2021-12-28 12:12 | XMS_ITS | Encounter Summary ---
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) At risk for falling Maria Esther Phan MD [address] [place], [place] [address] Referral ID Status Reason Start Date Expiration Date Visits Requ ested Visits Authorized [id number] Closed 11/13/2020 11/13/2021 1 1 Encounter Details Date Type Department Care Team Description 12/04/2020 Therapy [facility] Carlos Cartwright, Prema n's disease (HRC) (Primary Dx); [facility] PT Impaired functional mobility, balance, g ait, and endurance Physical Therapy [address] [address] [phone] Social History Tobacco Use Types Packs/Day Years Used Date Smoking Tobacco: Never Smokeless Tobacco: Never Alcohol Use Standard Drinks/Week Comments Not Currently 0 (1 standard drink = 0.6 oz pure alcoho l) Sex Assigned at Date Recorded Not on file documented as of this encounter Progress Notes Carlos Cartwright, PT - 12/04/2020 11:30 AM CDT PHYSICAL THERAPY VISIT SUMMARY ASSESSMENT Patient is a 65 y/o male that presents to physical therapy with referral diagnosis of Parkinson???s disease, dysphagia, dyskinesia due to PD, and risk of falling. Patient has had Parkinson's disease for many years and he is status post bilateral subthalamic nucleus stimulation surgery with battery change November of 2019. Patient reports at least 1 fall this past year. Patient and mid- discussion mentioned that they live close to [place] and it would be very difficult to attend physical therapy at this facility on a weekly to bi-weekly basis. After long discussion with patient and his , decision had been made for them to call [facility] and request a physical therapist that is certified in the [employer] program that could effectively treat patient with less stress on family (reducing driving). Did educate patient on different Parkinson's classes in the community, our [facility] PD programs and on [employer] program. Patient and his were satisfied with information. All questionsand concerns addressed as able. Did spend 30 minutes of direct patient care with patient and . Non-Billable time. Timed Code Minutes: 0 minutes Untimed Code Minutes: 30 minutes Total Treatment Time: 30 minutes Carlos Cartwright, NICHOLE 12/04/2020 documented in this encounter Plan of Treatment Scheduled Referrals Name Type Priority Associated Diagnoses Order S [facility] Physical Therapy Referral Routine Parkinson's dis ease (HRC) Ordered: 11/13/2020 Dysphagia, unspe cified type Dyskinesia due to Parkinson' s disease (HRC) At risk for falling documented as of this encounter Visit Diagnoses Diagnosis Parkinson's disease (HRC) - Primary Impaired functional mobility, balance, g ait, and endurance documented in this encounter Care Teams Manager Non Profit Relationship Specialty Start Date End Date Samantha Stauffer MD PCP - General Family Practice 12/12/191999 [place] [address] documented as of this encounter
--- OUTSIDE RECORDS SUMMARY | 2021-12-28 12:12 | XMS_ITS | Encounter Summary ---
:1955 Author Organization [facility] Address [address] [place] [address] Care Team Providers Name Role Phone Samantha Stauffer MD Primary Care Provider [phone] Reason for Referral Procedure/Equipment (Routine) - Incomplete Specialty Diagnoses / Procedures Referred By Contact Refer red To Contact Diagnoses Parkinson's disease (HRC) Dysphagia, unspecified type ParashosMaria Esther MD Procedures FL Video Swallow Study [address] [place], [place] [address] Referral ID Status Reason Start Date Expiration Date Visits V isits Requested Authorized [id number] Incomplete 11/04/2020 02/03/2022 1 1 Therapies (Routine) - Closed Specialty Diagnoses / Procedures Referred By Contact Refer red To Contact Diagnoses Parkinson's disease (HRC) Dysphagia, unspecified type ParashoMaria Esther jacques MD [address] [place], [place] [address] Referral ID Status Reason Start Date Expiration Date Visits Requ ested Visits Authorized [id number] Closed 11/04/2020 11/04/2021 1 1 Scheduling Instructions Your provider has recommended an appoint ment with a [facility] Speech Therapist. Please call for your appointment you may call [facility] Outpatient Rehabilitation at [phone]. We suggest you call your [employer] insurance company about your coverage and benefits for this appointment. Reason for Visit Reason Comments Orders Needed FL VIDEO SWALLOW STUDY Encounter Details Date Type Department Care Team Description 11/04/2020 Telephone [facility] Maria Esther Phan Orders Needed (OR [facility] MD Jorden VIDEO SWALLOW STUDY ) Neurology [address] [facility] [address] [place] [address] [place], [place] [phone] (Wo rk) Social History Tobacco Use Types Packs/Day Years Used Date Smoking Tobacco: Never Smokeless Tobacco: Never Alcohol Use Standard Drinks/Week Comments Yes 0 (1 standard drink = 0.6 oz pure alcoho l) Sex Assigned at Date Recorded Not on file documented as of this encounter Nursing Notes Maria Esther Phan MD - 11/04/2020 3:38 PM CDT Order signed. Chloé Denny - 11/04/2020 3:06 PM CDT RN spoke with Pat, pt's spouse spoke with outpatient rehab svcs to schedule swallow study - They are requesting the actual order: FL Video Swallow Study (like the one he had done Jun). RN can see the EARTH SCIENCE PROFESSOR order that requests video swallow study (with radiology and speech, but they need the actual order along with the EARTH SCIENCE PROFESSOR order. The order is pended. Dr. Phan will need to fill in the missing sections: clinical presentation and clinical history prior to signing. Chloé Denny 11/04/2020, 3:13 PM Maria Esther Phan MD - 11/04/2020 1:28 PM CDT Please notify her, order is in for speech therapy evaluation with swallow study Croy Yenny T - 11/04/2020 1:05 PM CDT Pt's natasha calling stating that pt is to get a Swallow Study but the order has not been placed. Pt needs and order for a FL Video Swallow Study. Please Advise documented in this encounter Plan of Treatment Scheduled Referrals Name Type Priority Associated Diagnoses Order S chedule Speech Therapy Referral Routine Parkinson's dise ase (HRC) Ordered: 11/04/2020 Dysphagia, unspecified type documented as of this encounter Results FL Video Swallow Study (11/19/2020 11:56 AM CDT) Anatomical Region Laterality Modality Neck, Chest Radio Fluoroscopy Specimen (Source) Anatomical Collection Method Collection Time Re ceived Time Location / / Volume Laterality 11/19/2020 11:56 AM CDT Narrative 11/19/2020 12:02 PM CDT EXAM: FL VIDEO SWALLOW STUDY LOCATION: [facility] DATE/TIME: 11/19/2020 11:56 AM INDICATION: Difficulty swallowing. COMPARISON: None. TECHNIQUE: Routine swallow study with sp eech pathology using multiple barium thicknesses. FINDINGS: Fluoroscopy was provided during a swallo wing study with Speech Pathology. The patient was administered barium of various consistencies. No evidence of laryngeal penetration or aspiration with fruit, thi n, or cookie barium consistency. The pat ient swallowed a barium tablet which passed promptly into the esophagus. ??Please see Speech Pathology report for full details and recommendations. Fluoroscopy time: ??0.7 minutes Dose: ??2.30 mGy Total number of fluoroscopic images: ??9 28 IMPRESSION: 1. ??No evidence of laryngeal penetratio n or aspiration with multiple barium consistencies. 2. ??Please see Speech Pathology report for full details and recommendations. Procedure Note Carlos Paul MD - 11/19/2020Formatt ing of this note might be different from the original. EXAM: FL VIDEO SWALLOW STUDY LOCATION: [facility] DATE/TIME: 11/19/2020 11:56 AM INDICATION: Difficulty swallowing. COMPARISON: None. TECHNIQUE: Routine swallow study with sp eech pathology using multiple barium thicknesses. FINDINGS: Fluoroscopy was provided during a swallo wing study with Speech Pathology. The patient was administered barium of various consistencies. No evidence of laryngeal penetration or aspiration with fruit, thin, or cookie barium consistency. The patient swallowed a bar ium tablet which passed promptly into the esophagus. Please see Speech Pathology report for full details and recommendations. Fluoroscopy time: 0.7 minutes Dose: 2.30 mGy Total number of fluoroscopic images: 928 IMPRESSION: 1. No evidence of laryngeal penetration or aspiration with multiple barium consistencies. 2. Please see Speech Pathology report fo r full details and recommendations. Maria Esther Phan MD RAD FL documented in this encounter Visit Diagnoses Diagnosis Parkinson's disease (HRC) - Primary Dysphagia, unspecified type Pre-procedural laboratory examination - Primary Parkinson's disease (HRC) Dysphagia, unspecified type documented in this encounter Care Teams Motor Vehicle Operator Road Supervisor Relationship Specialty Start Date End Date Samantha Stauffer MD PCP - General Family Practice 12/12/[address]1999 [place] [address] documented as of this encounter
--- OUTSIDE RECORDS SUMMARY | 2021-12-28 12:12 | XMS_ITS | Encounter Summary ---
:1955 Author Organization [facility] Address [address] [place] [address] Care Team Providers Name Role Phone Samantha Stauffer MD Primary Care Provider [phone] Reason for Visit Reason Comments RELEASE OF RECORDS Encounter Details Date Type Department Care Team Description 12/15/2020 Telephone [facility] Maria Esther Phan RELEASE OF RECORDS [facility] MD Prem Neurology [address] [phone] (Wo rk) Social History Tobacco Use Types Packs/Day Years Used Date Smoking Tobacco: Never Smokeless Tobacco: Never Alcohol Use Standard Drinks/Week Comments Not Currently 0 (1 standard drink = 0.6 oz pure alcoho l) Sex Assigned at Date Recorded Not on file documented as of this encounter Nursing Notes Kelly Encarnacion CMA - 12/15/2020 2:18 PM CDT Images from the original note were not included. Records from [facility] received and sent to scanning. Kelly Encarnacion CMA 12/15/2020, 2:19 PM documented in this encounter Plan of Treatment Not on filedocumented as of this encounter Visit Diagnoses Not on filedocumented in this encounter Care Teams Director Summer Sessions Relationship Specialty Start Date End Date Samantha Stauffer MD PCP - General Family Practice 12/12/19[address] [place] [address] documented as of this encounter
--- OUTSIDE RECORDS SUMMARY | 2021-12-28 12:12 | XMS_ITS | Encounter Summary ---
:1955 Author Organization [facility] Address [address] [place] [id number] Care Team Providers Name Role Phone Samantha Stauffer MD Primary Care Provider [phone] Reason for Referral Procedure/Equipment (Routine) - New Request Specialty Diagnoses / Procedures Referred By Contact Refer red To Contact Diagnoses Dysphagia, oropharyngeal phase Parkinson's disease (HRC) Hypokinetic Parkinsonian dysphonia (HRC) [place] [address] [place] [address] [phone] Referral ID Status Reason Start Date Expiration Date Visits V isits Requested Authorized [id number] New Request 11/19/2020 02/18/2022 20 20 Scheduling Instructions . 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 [place] [id number] [place] [address] [phone] Social History Tobacco Use Types Packs/Day Years Used Date Smoking Tobacco: Never Smokeless Tobacco: Never Alcohol Use Standard Drinks/Week Comments Not Currently 0 (1 standard drink = 0.6 oz pure alcoho l) Sex Assigned at Date Recorded Not on file documented as of this encounter Patient Instructions Patient InstructionsPageMesfin SLP - 11/19/2020 11:30 AM CDT Andrew, Your swallow study shows some slight changes we could attribute to Parkinson's, but I believe most of your complaints are related to possibly a problem in your esophagus. The mild Parkinson's changes we see do not align with your complaints which are more severe. 1. Continue soft and bite sized diet with thin liquids. 2. Given your problems with early satiety and epigastric discomfort, would suggest more frequent smaller meals. Take frequent breaks within meals. 3. Oral medications may be taken with water-would suggest one at a time. 4. We talked about speech therapy-specifically voice therapy for your dysarthria and hypophonia. We will schedule you for loud therapy, which will be four days a week for four weeks. The schedulers should reach out to you soon. JB Samuels [facility] Licensed Speech Language Pathologist -- Outpatient appointments direct documented in this encounter Progress Notes Mesfin Morgan SLP - 11/19/2020 11:30 AM CDT SPEECH LANGUAGE PATHOLOGY MODIFIED BARIUM SWALLOW INITIAL EVALUATION ASSESSMENT & PLAN Overall Assessment: Andrew Pang is a 65 y.o. male with a medical history remarkable for idiopathicParkinson's Disease and weight loss who is referred for an instrumental swallowing study. Andrew Pang has a functional swallow. There are subtle to mild swallowing inefficiencies we can likely attribute to Parkinsons Disease--however these inefficiencies don't exlplain the rather severe nature of patient's complaints. Suspect esophageal dysphagia, especially given air distention seen today and the pattern of patient's chief complaints. Patient is set to have EGD done tomorrow in [place], [place]. Hopefully this will lead to a successful intervention. Patient has additionally been referred for LOUD therapy, and a followup order was put in to allow these to be scheduled. Given the distance pt lives away, these will likely be done by video visit. We may consider adding EMST-150 at one point to pt's rehab program. I will also continue to follow him for his dysphagia. Images of this videofluoroscopic swallow study are now available to view in the ???imaging?? tab ofthe patient???s medical record. DIET AND BEHAVIORAL RECOMMENDATIONS (reprinted from After Visit Summary, if applicable) 1. Continue IDDSI 6-0 soft and bite sized diet with thin liquids as tolerated. Patient has indicatedthat he tends to give preference to a softer texture diet and of course this is appropriate. 2. Given your problems with early satiety and epigastric discomfort, would suggest more frequent smaller meals. Take frequent breaks within meals. 3. Oral medications may be taken with water-would suggest one at a time. 4. We talked about speech therapy-specifically voice therapy for your dysarthria and hypophonia. We will schedule you for loud therapy, which will be four days a week for four weeks. Treatment recommended? Yes--next session to be voice evaluation. Will discontinue the present plan of care as the focus of intervention will be dysphonia. PATIENT & VISIT INFORMATION Referral date: Previous Therapy for this Condition: has had a previous video fluoroscopy on 06/24/2019, results reviewed. Recommendation at that time was for a regular diet with thin liquids [employer] Info: Today's Visit Number: 1 Progress Note Needed at Visit Number: 10 Prior Visits Used in 2020: 0 Medical Diagnosis: ICD-10-CM 1. Dysphagia, oropharyngeal phase R13.12 Rehab Therapies Follow Up 2. Parkinson's disease (HRC) G20 Rehab Therapies Follow Up 3. Hypokinetic Parkinsonian dysphonia (HRC) G20 Rehab Therapies Follow Up R49.0 SUBJECTIVE Allergies: No known/reported food allergies Pain Intensity: None Chief Complaint: I have to gag or vomit by the third swallow. I get a pressure in my chest(localizes to sternum). +Early satiety + Epigastric pain + Regurgitation Swallowing review is POSITIVE for the following red-flag symptoms: 15-20 lbs weight loss last month,early satiety, epigastric pain/odynophagia, regurgitation Swallowing review is NEGATIVE for the following red-flag symptoms: no odynophagia, increased or excessive secretions, diminished chewing ability or trismus/TMJ dysfunction, reduced taste or smell, halitosis, difficulty with oral medications. Present Diet: Soft and Bite Sized: IDDSI Level 6 (previously called Dysphagia Advanced: NDD Level 3).. Suctioning Needs: None Dentition: adequate for chewing Current Mental Status: alert and cooperative. OBJECTIVE Oral/Motor Exam Facial Nerve grading/function is House-Brackmann I / bilaterally. Tongue Elevation/depression:within functional limits. No fasciculations, No myoclonus Lateralization: within functional limits Coordination: impaired Protrusion: within functional limits Lips Seal strength: within functional limits Retraction: within functional limits Soft palate elevation: did not test Cough/throat clearing: did not test Vocal quality: impaired Hypophonic, hypokinetic dysarthria Speech intelligibility: impaired Gag reflex: was not assessed Video Fluoroscopy Position: lateral Consistency Trials: Regular diet: IDDSI Level 7 (previously called Regular Diet), Soft and Bite Sized: IDDSI Level 6 (previously called Dysphagia Advanced: NDD Level 3)., Minced and Moist: IDDSI Level 5 (previously called Mechanically Altered: NDD Level 2). and Patient was independent to feed self Liquid Trials: Thin liquids: IDDSI Level 0 (previously called Regular liquid). Oral stage was characterized by delayed oral transit time and premature entry of the bolus into the hypopharynx prior to the initiation of a swallow. No tongue pumping. Oral stage also notable for fearfulness. Patient was cued at one point to take rapid consecutive swallows. He did not, thinking that if he did he would vomit. Pharyngeal Stage Aspiration was not observed. Laryngeal penetration was not observed. Pharyngeal swallow delay was not observed. Decreased pharyngeal contraction was not observed. Mild vallecular residue was observed with thin and puree trials. Pyriform residue was not observed. Decreased laryngeal elevation was not observed. Decreased laryngeal adduction was not observed. Cricopharyngeal dysfunction was not observed. There is inferior to superior air distension within the proximal esophagus during solid texture swallowing. Therapeutic techniques attempted: none Exam was completed with Bracco Varibar barium contrast, independently verified to IDDSI liquid framework: Davina Alegria, Mapping [employer]'s Varibar Barium Products to the IDDSI Framework. IDDSI website. ht tps://iddsi.org/IDDSI/media/images/Publications/Mbdimmm-Rophacj-zh-IDDSI-Framewo rk.pdf. October 2016. Varibar Thin 40% IDDSI Level 0-Thin Varibar [place] 40% IDDSI Level 2-Mildly Thick Varibar Thin Honey 40% IDDSI Level 3-Moderately Thick Varibar Honey 40% IDDSI Level 4-Extremely Thick Varibar Pudding IDDSI Level 4-Puree THERAPY OUTCOMES Speech - Discharge Total Visits: 1 Reason for discharge: Planned one-time evaluation, treatment and/or recommendations provided. Primary Therapist: Discharging Therapist Speech Dysphagia Swallowing Functional Limitation Reporting 1 to 7 scale (7 is best)??: 6 DIGEST swallow ratings: Safety: Grade 0 / Efficiency: Grade 1 where Grade 0 = WFL and 4 = profound impairment MD Slaughter Dysphagia Adverse Effects Grading Scale is Grade 1-2 according to the following levels: Grade 0 = No dysphagia or significant reported complaints (complaints determined to be unrelated to swallowing function) Grade 1 = Symptomatic despite relatively normal exam, able to eat regular diet and liquids. Grade 2 = Symptomatic with altered swallow function evident, able to eat safely with diet modification or strategies. Grade 3 = Severely altered swallowing function, some use of non-oral nutrition or history of weight loss or bronchopulmonary complications. Grade 4 = No safe oral intake possible--life threatening complications if pt pursues oral diet. In performing today's assessment or therapeutic activities, pt did have need to demask in order to meet therapeutic demands for swallowing or for correct oral posturing/feedback. Demasking of patient was necessary for 10 minutes. For correct visual demonstration, demasking of clinician was necessary for 0 minutes. Where possible, faceshield and/or plexiglass barriers were maintained. TODAY'S TREATMENT INFO Initial Evaluation Completed (30 minutes) Treatments/Interventions Performed: instrumental dysphagia evaluation Education: Provided family Swallowing anatomy and physiology education, training, and/or instruction in the following areas: recommended diet consistency and safe swallowing precautions Patient and/or family response to education: Patient and/or family demonstrated comprehension of provided education Timed Code Minutes: 0 minutes Untimed Code Minutes: 30 minutes Total Time: 30 minutes documented in this encounter Plan of Treatment Scheduled Referrals Name Type Priority Associated Diagnoses Order S chedule Rehab Therapies Follow Referral Routine Dysphagia, orophar yngeal Ordered: 11/19/2020 Up phase Parkinson's dise ase (HRC) Hypokinetic Parkinsonian dysphonia (HRC) documented as of this encounter Visit Diagnoses Diagnosis Dysphagia, oropharyngeal phase - Primary Parkinson's disease (HRC) Hypokinetic Parkinsonian dysphonia (HRC) Dysphonia documented in this encounter Care Teams Television Script Writer Relationship Specialty Start Date End Date Samantha Stauffer MD PCP - General Family Practice 12/12/191999 [place] [address] documented as of this encounter
--- OUTSIDE RECORDS SUMMARY | 2021-12-28 12:12 | XMS_ITS | Encounter Summary ---
:1955 Author Organization [facility] Address [address], [place] [address] Care Team Providers Name Role Phone Lurdes Thomas MD Primary Care Provider Reason for Visit Reason Comments Refill Encounter Details Date Type Department Care Team Description 08/21/2019 Refill [facility] Neuroscience Maria Esther Reis MD Refill Center Neurology [address] [facility] [address] [place] [address] [place] [address] [phone] Social History Tobacco Use Types Packs/Day Years [...] on filedocumented in this encounter Care Teams Coffee Supervisor Relationship Specialty Start Date End Date Lurdes Thomas MD PCP - General 06/18/14 12/11/19 documented as of this encounter
--- OUTSIDE RECORDS SUMMARY | 2021-12-28 12:12 | XMS_ITS | Encounter Summary ---
:1955 Author Organization [facility] Address [address] [place] [address] Care Team Providers Name Role Phone Samantha Stauffer MD Primary Care Provider [phone] Reason for Visit Reason Comments Post-Op Check Encounter Details Date Type Department Care Team Description 01/24/2020 Telemedicine Specialty Center 3931 Divina Kaiser MD Parkinson's disease Neurosurgery 39[address] [facility] (Primary Dx) [facility] [address] [phone] Social History Tobacco Use Types Packs/Day Years Used Date Smoking Tobacco: Never Smokeless Tobacco: Never Alcohol Use Standard Drinks/Week Comments Yes 0 (1 standard drink = 0.6 oz pure alcoho l) Sex Assigned at Date Recorded Not on file documented as of this encounter Progress Notes Jorge L Kaiser MD - 01/24/2020 4:30 PM CDT Neurosurgery Progress Note Date of Service: 01/24/20 Dx: Parkinson's disease Andrew Pang is a 64 y.o. old male status post replacement of right active a PC generator on 12/12/2019. His recovery was uneventful and he is back to baseline. His incision looks good. He and his wifeare happy. We are happy that Mr. Pang is doing so well. We will be available when he needs us in the future. Visit time: 10 minutes. Greater than 50% of time spent counseling or coordinating care. Jorge L I. Awilda, M.D. documented in this encounter Plan of Treatment Not on filedocumented as of this encounter Visit Diagnoses Diagnosis Parkinson's disease (HRC) - Primary documented in this encounter Care Teams Mainframe Architect Relationship Specialty Start Date End Date Samantha Stauffer MD PCP - General Family Practice 12/12/191999 [place] [address] documented as of this encounter
--- OUTSIDE RECORDS SUMMARY | 2021-12-28 12:12 | XMS_ITS | Encounter Summary ---
:1955 Author Organization [facility] Address [address], [place] [address] Care Team Providers Name Role Phone Samantha Stauffer MD Primary Care Provider [phone] Reason for Visit Reason Comments Refill Encounter Details Date Type Department Care Team Description 11/01/2020 Refill [facility] Neuroscience Maria Esther Reis MD Refill Center Neurology 39[address] [facility] [address] [place] [address] [place] [address] [phone] Social History Tobacco Use Types Packs/Day Years [...] on filedocumented in this encounter Care Teams Research Development Manager Relationship Specialty Start Date End Date Samantha Stauffer MD PCP - General Family Practice 12/12/191999 [place] [address] documented as of this encounter
--- OUTSIDE RECORDS SUMMARY | 2021-12-28 12:12 | XMS_ITS | Encounter Summary ---
:1955 Author Organization [facility] Address [address], [place] [address] Care Team Providers Name Role Phone Samantha Stauffer MD Primary Care Provider [phone] Reason for Visit Procedure/Equipment (Routine) - Incomplete Specialty Diagnoses / Procedures Referred By Contact Refer red To Contact Diagnoses Parkinson's disease ([facility]) Dysphagia, unspecified type Sylvester, Maria Esther Amaro MD Procedures [place] Video Swallow Study 3931 [place], [place] [address] Referral ID Status Reason Start Date Expiration Date Visits V isits Requested Authorized [id number] Incomplete 11/04/2020 02/03/2022 1 1 Encounter Details Date Type Department Care Team Description 11/19/2020 Ancillary [facility] [place], Pre-procedura l laboratory examination (Primary Dx); Procedure Neuroscience Center Maria Esther Amaro MD Parkinson's disease ([facility]); Radiology Fluoro [address] [place] Dysphagia, unspecified type [address] [place] [address] [place], [place] [phone] Social History Tobacco Use Types Packs/Day Years [...] Diagnosis Comme nts [place] VIDEO SWALLOW Routine 11/19/2020 11:56 AM Parkinson's disea se Results for this STUDY CDT (HRC) procedure are in Dysphagia, the results unspecified type section. documented in this encounter Results FL Video Swallow Study (11/19/2020 11:56 AM CDT) Anatomical Region Laterality Modality Neck, Chest Radio Fluoroscopy Specimen (Source) Anatomical Collection Method Collection Time Re ceived Time Location / / Volume Laterality 11/19/2020 11:56 AM CDT Narrative 11/19/2020 12:02 PM CDT EXAM: [place] VIDEO SWALLOW STUDY LOCATION: [facility] DATE/TIME: 11/19/2020 11:56 AM INDICATION: Difficulty swallowing. [...] original. EXAM: [place] VIDEO SWALLOW STUDY LOCATION: [facility] DATE/TIME: 11/19/2020 11:56 AM INDICATION: Difficulty swallowing. [...] r full details and recommendations. Maria Esther BYNUM [place] documented in this encounter Visit Diagnoses Diagnosis Pre-procedural laboratory examination - Primary Parkinson's disease (HRC) Dysphagia, unspecified type documented in this encounter Administered Medications Inactive Administered Medications - up to 3 most recent administrations Medication Order MAR Action Action Date Dose Rate Site barium sulfate (EZ PAQUE) Given 11/19/2020 11:57 AM CDT 200 mL suspension 200 mL 200 mL, Oral, ONCE (NON-SCHEDULED), Starting on Stacey 11/19/20 at 1157, For 1 dose barium sulfate (EZ-DISK) tablet 700 mg Given 11/19/2020 11:58 AM CDT 700 mg 700 mg, Oral, ONCE (NON-SCHEDULED), Starting on Stacey 11/19/20 at 1156, Until Stacey 11/19/20 at 1158, For 1 dose barium Sulfate (VARIBAR PUDDING) oral pudding Given 11:57 AM CDT 25 mL 25 mL 25 mL, Oral, ONCE (NON-SCHEDULED), Starting on Stacey 11/19/20 at 1157, Until Stacey 11/19/20 at 1157, For 1 dose documented in this encounter Care Teams Biomedical Equipment Technician Relationship Specialty Start Date End Date Samantha Stauffer MD PCP - General Family Practice 12/12/191999 [place] [address] documented as of this encounter
--- OUTSIDE RECORDS SUMMARY | 2021-12-28 12:12 | XMS_ITS | Encounter Summary ---
:1955 Author [facility] Address [address], [place] [address] Care Team Providers Name Role Phone Samantha Stauffer MD Primary Care Provider [phone] Reason for Visit Auth/Cert Specialty Diagnoses / Procedures Referred By Contact Refer red To Contact Diagnoses Parkinson's disease (HRC) Procedures RIGHT DEEP BRAIN STIMULATOR GENERATOR REPLACEMENT Referral ID Status Reason Start Date Expiration Date Visits Requ ested Visits Authorized [id number] 1 1 Encounter Details Date Type Department Care Team Description 12/12/2019 Anesthesia Event Cheondo[employer] Operating Migel Portillo MD [address] [place] [address] [facility] Nasim Armstrong MD [address] [place] [address] [place] [address] Anesthesia Record Procedure Summary Procedure Name Responsible Anesthesia Start Anesthesia Stop Anesthesiologist Time Time RIGHT DEEP BRAIN Jimmy Portillo MD 12/12/19 0730 12/12/19 08 22 STIMULATOR GENERATOR REPLACEMENT (Right) Events Date Time Event Comment 12/12/2019 0723 0730 An Start 0730 An Start Data 0735 An Cannula 0756 MDA Present 0817 an stop data 0822 An Stop Care transferred . 0822 Care Handoff Note I discussed wi th the receiving nurse and we: 1) Identified the p atient, yap family member(s) or patient surrogat e 2) Identified the responsible practitioner 3) Reviewed the pertinent medical history 4) Discu ssed the surgical/procedure course 5) Reviewed intr a-op anesthesia management and issues during an esthesia 6) Set expectations for the post-procedu re period 7) Allowed opportunity for questions an d acknowledgement of understanding of report Electr onically signed by Luis Anaya APRN, CRNA Name Total midazolam injection 2 mg/2 mL (VERSED) 2 mg fentaNYL injection (SUBLIMAZE) 100 mcg propofol 10 mg/mL IV (DIPRIVAN) 161.34 mg ondansetron injection (ZOFRAN) 4 mg ceFAZolin (aka ANCEF) 2 g in dextrose 100 ml IVPB 2 g dexmedetomidine (PRECEDEX) 20 mcg in sodium chloride 5 mL (4 mcg/mL) 8 mcg injection SYRINGE lactated ringers infusion 300 mL Agents Name O2 Identified Agent Name Blood No blood administrations on file. Lines, Drains, and Airways Type Details Placement Removal Peripheral IV Placement Date: 12/12/19744 by 12/26/191942 b y Lda, 12/12/19; Placement Luis Anaya Discontin ue Time: 744; MARISOL Ricketts CRNA Pre-existing: No; Inserted by?: Anesthesiologist; Size (Gauge): 22 G; Orientation: Left; Site Prep: Alcohol; Local Anesthetic: None; Insertion attempts: 1; Blood draw with insertion?: no; Patient Tolerance: Tolerated well; Met Standard Sterile Barrier Technique: Met Standard Sterile Barrier Technique; Removal Date: 12/26/19; Removal Time: 1942 Incision/Surgical Site 12/12/19; 0758; #1; 12/12/19 0758 by 11/08 by [place], Chest; Right; Rose Mary Holman RN Discontinue 12/26/19; 1942 documented in this encounter Social History Tobacco Use Types Packs/Day Years Used Date Smoking Tobacco: Never Smokeless Tobacco: Never Alcohol Use Standard Drinks/Week Comments Yes 0 (1 standard drink = 0.6 oz pure alcoho l) Sex Assigned at Date Recorded Not on file documented as of this encounter Miscellaneous Notes Anesthesia Postprocedure Evaluation - Jimmy Portillo MD - 12/12/2019 11:16 AM CDT [facility] Anesthesia Post-op Note Patient: Andrew Pang Post-Op Diagnosis: Parkinson's disease (hrc) Procedure Performed: Procedure(s): Right - RIGHT DEEP BRAIN STIMULATOR GENERATOR REPLACEMENT - Wound Class: 1 CLEAN Anesthesia Type: MAC Post-op vital signs: Vitals Value Taken Time BP 101/58 12/12/2019 9:15 AM Temp 36 ??C (96.8 ??F) 12/12/2019 8:22 AM Pulse 68 12/12/2019 9:09 AM Resp 16 12/12/2019 8:22 AM SpO2 98 % 12/12/2019 9:09 AM Vitals shown include unvalidated device data. Pain Score: Presence Of Pain: complains of pain/discomfort Preferred Pain Scale: word (verbal ratingpain scale) Pain Rating (0-10): Rest: 0 Post-op assessment: No anesthesia complication. Patient location: Phase 2 Airway Status: Patent Cardiovascular function: Satisfactory Hydration status: Satisfactory PONV: None Level of Consciousness: Awake Fully Participates Postop Assessment: Patient tolerated procedure well. Electronically signed by: Jimmy Portillo MD 12/12/2019 11:16 AM Anesthesia Preprocedure Evaluation - Nasim Armstrong MD - 12/12/2019 7:16 AM CDT [facility] Anesthesia Pre-op Evaluation Procedure: Procedure(s): Right - RIGHT DEEP BRAIN STIMULATOR GENERATOR REPLACEMENT - Wound Class: 1 CLEAN HPI: 64 y.o. old male with Parkinson's disease (hrc) NPO Status: Last Fluid Intake Time: 0000 Last Fluid Intake Date: 12/12/19 Last Food Intake Date: 12/12/19 Last Food Intake Time: 0000 No Known Allergies Past Medical History: Diagnosis Date ??? 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 Hyperlipidemia (HRC) ??? Low back pain (HRC) ??? Osteoarthritis ??? Parkinson's disease (HRC) ??? Varicella uncomplicated childhood Patient Active Problem List Diagnosis ??? Parkinson's disease (HRC) ??? Hyperlipidemia ??? Vitamin D deficiency ??? Hyperlipidemia ??? 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 Vasovagal syncope ??? Lumbar radiculopathy Past Surgical History: Procedure Laterality Date ??? DBS Bilateral 08/2014 STN ??? discectomy 2004 neck, did well ??? INGUINAL HERNIA REPAIR BILATERAL Left 11 yo ??? TONSILLECTOMY 4 yo Outpatient Medications Marked as Taking for the 12/12/19 encounter (Hospital Encounter) Medication Sig Dispense Refill ??? Amantadine HCl ER (GOCOVRI) 137 MG CP24 Take 2 Capsules by mouth daily at bedtime. 60 Capsule 11 ??? ascorbic acid (AKA VITAMIN C) 500 MG tablet Take 500 mg by mouth as needed for Other. ??? carbidopa-levodopa (RYTARY) 61.25-245 MG ER capsule Take 1 Capsule by mouth 4 times a day. 360 Capsule 3 ??? cholecalciferol (AKA VITAMIN D3) 2000 UNITS tablet Take 2,000 Units by mouth Daily. ??? citalopram (CELEXA) 10 MG tablet Take 1 Tablet by mouth daily. 90 Tablet 3 ??? ibuprofen (MOTRIN) 200 MG tablet Take 200-400 mg by mouth every 4 hours as needed for Pain. ??? pravastatin (AKA PRAVACHOL) 80 MG tablet Take 1 Tab by mouth daily at bedtime. 90 Tab 3 Current Facility-Administered Medications Medication Dose Route Frequency ??? ceFAZolin (aka ANCEF) 2 g in dextrose 100 ml IVPB 2 g Intravenous Once ??? fentaNYL (SUBLIMAZE) injection 25-50 mcg 25-50 mcg Intravenous Q5MIN PRN ??? fentaNYL (SUBLIMAZE) injection 25-50 mcg 25-50 mcg Intravenous Q5MIN PRN ??? HYDROmorphone (DILAUDID) injection 0.2-0.3 mg 0.2-0.3 mg Intravenous Q10MIN PRN ??? lactated ringers infusion 25 mL/hr Intravenous Continuous ??? lidocaine PF (XYLOCAINE) 1 % injection 0.1-0.3 mL 0.1-0.3 mL Subcutaneous PRN ??? meperidine (DEMEROL) injection 12.5 mg 12.5 mg Intravenous Q5MIN PRN ??? midazolam (VERSED) injection 1-2 mg 1-2 mg Intravenous Q5MIN PRN ??? naloxone (NARCAN) injection 0.08 mg 0.08 mg Intravenous PRN ??? naloxone (NARCAN) injection 0.4 mg 0.4 mg Intravenous ONCE PRN ??? ondansetron (ZOFRAN) injection 4 mg 4 mg Intravenous Q4H PRN Facility-Administered Medications Ordered in Other Encounters Medication Dose Route Frequency ??? barium sulfate (VARIBAR NECTAR) 40 % oral suspension 20 mL 20 mL Oral Once (Non-Scheduled) Labs: Lab Results Component Value Date/Time GLUCOSE 105 (H) 08/17/2009 08:30 AM No results found for: WBC, HGB, HCT, PLTS No results found for: INR Blood Bank: No results found for: ABO, ABSCR EKG: No results found for this or any previous visit. Physical Exam: BP 138/79 Pulse 77 Temp 36.2 ??C (97.2 ??F) (Temporal Artery) Resp 18 Ht 6' 2 Wt 78.7 kg (173 lb 9.6 oz) SpO2 100% BMI 22.29 kg/m?? Assessment/Plan: Review of Systems Patient does not have GERD. Patient is not a current smoker. The patient reports alcohol use. Patient denies any recent URI. History of PONV: No. History of motion sickness: No. Patient denies any personal or family history of anesthesia complications (PONV). Exam Mental Status: Alert and oriented. Mallampati score: II (Two). Mouth opening: Normal Thyromental Distance: < 3 finger breadths Neck Extension: Full Neck Circumference > 40 cm?: No Current airway assessment:Normal Dentition: Normal. Cardiac Exam: Regular rate and rhythm. Respiratory Exam: Breath sounds clear to auscultation Assessment ASA Status: 3 . Plan Anesthesia type: MAC Induction: Propofol Maintenance: PONV Risk Score Peds:0 PONV Risk Score Adult: 1 PONV Prophylaxis (planned): Ondansetron Anesthetic plan, risks, benefits and alternatives discussed with: Patient or Screenplay Writer agree tothe anesthesia treatment plan and Patient. H&P Reviewed and Patient examined, no change observed IV access Antibiotics per surgery Electronically signed by: Nasim Armstrong MD 12/12/2019 7:16 AM documented in this encounter Plan of Treatment Not on filedocumented as of this encounter Visit Diagnoses Not on filedocumented in this encounter Administered Medications Inactive Administered Medications - up to 3 most recent administrations Medication Order MAR Action Action Date Dose Rate Site ceFAZolin (aka ANCEF) 2 g in Given 12/12/2019 7:35 AM CDT 2 g dextrose 100 ml IVPB 2 g, Intravenous, Administer over 30 Minutes, ONCE, On Stacey 12/12/19 at 0615, For 1 dose, Infuse within 60 minutes prior to incision. Re-dose 1 gram IV every 4 hours after initial dose until incision closed. Re-dose if more than 1.5 L of blood loss. Pharmacy may adjust for renal insufficiency., Pre-op dexmedetomidine injection syringe 20 mcg /5 mL Given 12/12/2019 7:40 AM CDT 8 mcg Starting on Stacey 12/12/19 at 0740, Until Stacey 12/12/19 at 0822 fentaNYL (SUBLIMAZE) injection Given 12/12/2019 7:37 AM CDT 50 mcg Intravenous, Starting on Stacey 12/12/19 at 0735, Until Stacey 12/12/19 at 0822 Given 12/12/2019 7:35 AM CDT 50 mcg midazolam (VERSED) injection Given 12/12/2019 7:30 AM CDT 2 mg Intravenous, Starting on Stacey 12/12/19 at 0730, Until Stacey 12/12/19 at 0822 ondansetron (ZOFRAN) injection Given 12/12/2019 8:02 AM CDT 4 mg Intravenous, Starting on Stacey 12/12/19 at 0802, Until Stacey 12/12/19 at 0822 propofol (DIPRIVAN) 10 Rate/Dose Change 12/12/2019 7:48 75 mcg/kg/m in 35.42 mL/hr mg/mL injection AM CDT Starting on Stacey 12/12/19 at 0737, Until Stacey 12/12/19 at 0822 Started 12/12/2019 7:37 AM CDT 50 mcg/kg/min 23.61 mL/hr documented in this encounter Care Teams Software Recruiter Relationship Specialty Start Date End Date Samantha Stauffer MD PCP - General Family Practice 12/12/191999 [place] [address] documented as of this encounter
--- OUTSIDE RECORDS SUMMARY | 2021-12-28 12:12 | XMS_ITS | Encounter Summary ---
:1955 Author Organization [facility] Address [address] [place] [address] Care Team Providers Name Role Phone Samantha Stauffer MD Primary Care Provider [phone] Reason for Visit Reason Comments Prior Authorization Request Amantadine HCl ER (GOCOVRI ) 137 MG CP24 Encounter Details Date Type Department Care Team Description 10/27/[address] [facility] MD Prem Request (Amantadine Neurology [address] HCl ER (GOCOVRI) [address] MG CP24) [place] [address] [place], [place] [phone] Social History Tobacco Use Types Packs/Day Years Used Date Smoking Tobacco: Never Smokeless Tobacco: Never Alcohol Use Standard Drinks/Week Comments Yes 0 (1 standard drink = 0.6 oz pure alcoho l) Sex Assigned at Date Recorded Not on file documented as of this encounter Nursing Notes Chloé Denny - 11/06/2020 8:37 AM CDT Prior authorization approved -Nida Payer: [facility] CaseId:[id number];Status:Approved;Review Type:Prior Auth;Coverage Start Date:09/27/2020;Coverage End Date:10/27/2021; RN left pt a detailed voicemail update. Encouraged to call back with further questions. Chloé Denny 11/06/2020, 8:37 AM Chloé Denny - 10/27/2020 9:49 AM CDT ePA requested. Chloé Denny 10/27/2020, 9:49 AM Sylvia Burgess - 10/27/2020 7:50 AM CDT Images from the original note were not included. PA NEEDED- Amantadine HCl ER (GOCOVRI) 137 MG CP24 Sylvia Burgess 10/27/2020, 7:50 AM documented in this encounter Plan of Treatment Not on filedocumented as of this encounter Visit Diagnoses Not on filedocumented in this encounter Care Teams Rn Access Relationship Specialty Start Date End Date Samantha Stauffer MD PCP - General Family Practice 12/12/191999 [place] [address] documented as of this encounter
--- OUTSIDE RECORDS SUMMARY | 2021-12-28 12:12 | XMS_ITS | Encounter Summary ---
:1955 Author Organization [facility] Address [address] [place] [id number] Care Team Providers Name Role Phone Lurdes Thomas MD Primary Care Provider Reason for Visit Reason Comments QUESTIONS, GENERAL Encounter Details Date Type Department Care Team Description 09/17/2019 Telephone [facility] Maria Esther Phan, GENERAL [facility] MD Prem Neurology [address] [facility] [address] [place] [phone] (Wo rk) Social History Tobacco Use Types Packs/Day Years Used Date Smoking Tobacco: Never Smokeless Tobacco: Never Alcohol Use Standard Drinks/Week Comments Yes 0 (1 standard drink = 0.6 oz pure alcoho l) Sex Assigned at Date Recorded Not on file documented as of this encounter Nursing Notes Maria Esther Phan MD - 09/24/2019 11:44 AM CDT Thanks! Doris Arauz RN - 09/24/2019 10:32 AM CDT Called and spoke with Andrew. He has range and will bump up both sides by 0.1, so then he does not have to come in for face to face visit. He then will be at the top of his limit. Gave him [facility] DBS nurse line to call if he had programing questions. FYI. Maria Esther Phan MD - 09/23/2019 12:30 PM CDT OK, I will ask nursing for DBS programming with [facility], to see if we can put off the new battery for a few more months if they prefer to do it taht way. Doris, see conversation, can we bring him in for some adduitional programming while waiting for a new battery? Thanks! Matt Cates RN - 09/23/2019 12:13 PM CDT Nurse spoke with patient and . They state they met with Dr. Kaiser and spoke with Sylvia at [facility]. They stated they were ready to move forward with surgery, but according to [employer], patient'sbattery should be good to go for 3-4 months. Sylvia did mention that dialing up or giving extra voltage may be beneficial. Sylvia had mentioned that Dr. Phan may have patient to go to [facility] to have an adjustment. They would be interested in this if it is a possibility. Dr. Phan, please review and advise. Matt Cates RN 09/23/2019, 12:18 PM Sylvia Burgess - 09/23/2019 10:10 AM CDT Spouse called in, wanting to speak with Blaise about his battery and could be that it needs adjusting.Please call [phone] Sylvia Burgess 09/23/2019, 10:11 AM Matt Cates RN - 09/17/2019 12:30 PM CDT Spoke with Natasha and she requested number to [facility]. Nurse gave her appointment number and she was appreciative. She stated she has not further questions or concerns. Matt Cates RN 09/17/2019, 12:33 PM Devaughn Perry - 09/17/2019 12:27 PM CDT Andrew Pang's spouse, Natasha is calling and requesting for a return call from care team. Did not go into specifics what this is regarding. Devaughn Perry 09/17/2019, 12:28 PM documented in this encounter Plan of Treatment Not on filedocumented as of this encounter Visit Diagnoses Not on filedocumented in this encounter Care Teams Fabric Separator Operator Relationship Specialty Start Date End Date Lurdes Thomas MD PCP - General 06/18/14 12/11/19 documented as of this encounter
--- OUTSIDE RECORDS SUMMARY | 2021-12-28 12:12 | XMS_ITS | Encounter Summary ---
:1955 Author Organization [facility] Address [address] [address] Care Team Providers Name Role Phone Lrudes Thomas MD Primary Care Provider Reason for Referral Procedure/Equipment (Routine) - Incomplete Specialty Diagnoses / Procedures Referred By Contact Refer red To Contact Diagnoses Dysphagia, oropharyngeal phase Maria Esther Phan MD Procedures FL Video Swallow Study [address] [place], [place] [address] Referral ID Status Reason Start Date Expiration Date Visits V isits Requested Authorized [id number] Incomplete 06/24/2019 09/22/2020 1 1 H SHRINKING SUPERVISOR Reason for Visit Reason Comments Parkinson's Disease Therapies (Routine) - Closed Specialty Diagnoses / Procedures Referred By Contact Refer red To Contact Diagnoses Dysphagia, unspecified type Parkinson's disease (HRC) Maria Esther Phan MD [address] [place], [place] [address] Referral ID Status Reason Start Date Expiration Date Visits Requ ested Visits Authorized [id number] Closed 06/17/2019 08/16/2019 1 1 Encounter Details Date Type Department Care Team Description 06/24/2019 Office Visit Mesfin Fong, Dysphagia, [facility] METAL MILLING MACHINE OPERATOR oropharyngeal phase Speech Therapy [address] (Primary Dx) [address] [place], [place] [id number] [place] [address] [phone] Social History Tobacco Use Types Packs/Day Years Used Date Smoking Tobacco: Never Smokeless Tobacco: Never Alcohol Use Standard Drinks/Week Comments Yes 0 (1 standard drink = 0.6 oz pure alcoho l) Sex Assigned at Date Recorded Not on file documented as of this encounter Progress Notes Mesfin Morgan SLP - 06/24/2019 3:00 PM CST Pt seen, referred for MBSS H SHRINKING SUPERVISOR documented in this encounter Plan of Treatment Not on filedocumented as of this encounter Results FL Video Swallow Study (06/24/2019 4:10 PM CLOTH SHRINKING SUPERVISOR) Anatomical Region Laterality Modality Neck, Chest Radio Fluoroscopy Specimen (Source) Anatomical Collection Method Collection Time Re ceived Time Location / / Volume Laterality 06/24/2019 4:10 PM CLOTH SHRINKING SUPERVISOR Narrative 06/24/2019 5:11 PM CLOTH SHRINKING SUPERVISOR EXAM: FL VIDEO SWALLOW STUDY LOCATION: [facility] DATE/TIME: 06/24/2019 4:10 PM INDICATION: Difficulty swallowing. [...] original. EXAM: FL VIDEO SWALLOW STUDY LOCATION: [facility] DATE/TIME: 06/24/2019 4:10 PM INDICATION: Difficulty swallowing. [...] as described above. Maria Esther Phan MD [facility] documented in this encounter Visit Diagnoses Diagnosis Dysphagia, oropharyngeal phase - Primary Dysphagia, oropharyngeal phase documented in this encounter Care Teams Wheel Shop Supervisor Relationship Specialty Start Date End Date Lurdes Thomas MD PCP - General 06/18/14 12/11/19 documented as of this encounter
--- OUTSIDE RECORDS SUMMARY | 2021-12-28 12:12 | XMS_ITS | Encounter Summary ---
:1955 Author [facility] Address [address] [address] Care Team Providers Name Role Phone Lurdes Thomas MD Primary Care Provider Reason for Visit Reason Comments Dysphagia Encounter Details Date Type Department Care Team Description 06/24/2019 Office Visit [facility] oropharyngeal phase Speech Therapy [address] (Primary Dx) [address] [place], [place] [address] [place] [address] [phone] Social History Tobacco Use Types Packs/Day Years Used Date Smoking Tobacco: Never Smokeless Tobacco: Never Alcohol Use Standard Drinks/Week Comments Yes 0 (1 standard drink = 0.6 oz pure alcoho l) Sex Assigned at Date Recorded Not on file documented as of this encounter Progress Notes Nabila Michele, JB - 06/24/2019 2:45 PM CST SPEECH LANGUAGE PATHOLOGY MODIFIED BARIUM SWALLOW INITIAL EVALUATION ASSESSMENT Patient was seen for clinic evaluation of swallowing but upon brief background collection of information was determined to be appropriate for a video swallow study, which we were able to complete same day. Pt has had onset of 2 weeks of new dysphagia symptoms. Worse with his own saliva. Will cough on saliva out of nowhere. Occasional waking up in the middle of the night with the same problem. No new medical changes to account for onset. Has had Parkinson's for 12 years, DBS placement 5 years ago. Was prescribed a cough medicine (Benzonatate) that has provided some relief of the problem. Andrew Pang has a functional swallow. Oral swallow is within functional limits. Pharyngeal swallow is within functional limits. During this assessment, Andrew Pang demonstrated very shallow penetration on consecutive thin liquids but safe and intact airway protection across all trials/textures. Does not have premature spillage prior to onset of swallowing. Pharyngeal contraction is strong and timely, there is no residue of food or liquids after any trials or textures in the pharynx. Timely and efficient transit through the UES. Recommendations: 1. We discuss ways to promote more frequent saliva swallowing during the day. Increase hydration--aim for small sips through the day to help wash down saliva along with the water. 2. Suggestion to continue sucking on candy or lozenges to promote more swallowing. 3. Nighttime wake up with coughing may have to be managed by medications (drying agents like scopolamine) but will defer to Dr. Phan to discuss the advantages and disadvantages. No Skilled Speech Language Pathology was determined necessary at this time. Images of this videofluoroscopic swallow study are now available to view in the ???imaging?? tab ofthe patient???s medical record. PLAN No goals established as no further intervention from ELECTRICAL TECH/PROJECT MANAGER service is warranted at this time. VISIT INFORMATION [place] Insurance Info: Today's Visit Number: 1 Progress Note Needed at Visit Number: 10 Prior Visits Used in 2020: 1 Date of Onset: 06/12/2019 Medical Diagnosis: ICD-10-CM 1. Dysphagia, oropharyngeal phase R13.12 SUBJECTIVE Chief Complaint: Patient complains of coughing on saliva and occasionally on foods. Pain: Pain is not an issue for this episode of care for this patient. Present Diet: a regular diet without texture or consistency restrictions. Dentition: adequate for chewing. Current Mental Status: alert and cooperative. OBJECTIVE Oral/Motor Exam Tongue Elevation/depression:within functional limits Lateralization: within functional limits Coordination: within functional limits Protrusion: within functional limits Lips Seal strength: within functional limits Retraction: within functional limits Facial symmetry: within functional limits Soft palate elevation: within functional limits Cough/throat clearing: within functional limits Vocal quality: hypokinetic dysarthria, mild festination of rate and softer voice Speech intelligibility: within functional limits but above qualities Gag reflex: did not test Video Fluoroscopy Position: lateral Consistency Trials: pureed, semi-soft, solid and barium tablet Liquid Trials: thin Oral stage was characterized by normal behavior. Pharyngeal Stage Aspiration was not observed. Laryngeal penetration was observed with consecutive swallows of thin trials. Does not occur on single thin liquid swallows. Does not occur on nectar thick liquids. On the Penetration-Aspiration Scale (Andie, Natalio, Jigar, Brody, and Ang, 1996), this swallowing behavior ranks as 2 with a rangeof 1 (no airway compromise) to 8 (gross aspiration, visible residual, and no cough or attempt to clear). Pharyngeal swallow delay was not observed. Decreased pharyngeal contraction was not observed. Vallecular residue was not observed. Pyriform residue was not observed. Decreased laryngeal elevation was not observed. Decreased laryngeal adduction was not observed. Cricopharyngeal dysfunction was not observed. THERAPY OUTCOMES Speech - Discharge Total Visits: 1 Reason for discharge: Planned one-time evaluation, treatment and/or recommendations provided. Primary Therapist: Discharging Therapist Speech Dysphagia Swallowing Functional Limitation Reporting 1 to 7 scale (7 is best)??: 6 TODAY'S SESSION Initial Evaluation Completed Treatment Today: Exam completed Results reviewed. Pt and ELECTRICAL TECH/PROJECT MANAGER watched MBSS video together with ELECTRICAL TECH/PROJECT MANAGER pointing out anatomical landmarks and explaining how the patient's swallow is working and/or how it deviates from normal function. Reviewed the recommendations listed above. Patient's Response to Therapy: Pt is happy to know his swallowing is working very well, says the suggestion for sucking on something to promote more saliva swallows makes a lot of sense. Education: Provided patient/family verbal and visual education, training, and/or instruction in the following areas: dysphagia, recommended diet consistency, safe swallowing precautions and swallowing anatomy andphysiology Patient and/or family response to education: Patient and/or family demonstrated comprehension of provided education Home Program: See recs above Total Treatment Time: 35 minutes Nabila Morrell CCC-ELECTRICAL TECH/PROJECT MANAGER 06/24/2019 NCT PHYSICS INSTRUCTOR documented in this encounter Plan of Treatment Not on filedocumented as of this encounter Visit Diagnoses Diagnosis Dysphagia, oropharyngeal phase - Primary documented in this encounter Care Teams Perinatal Technician Relationship Specialty Start Date End Date Lurdes Thomas MD PCP - General 06/18/14 12/11/19 documented as of this encounter
--- OUTSIDE RECORDS SUMMARY | 2021-12-28 12:12 | XMS_ITS | Encounter Summary ---
:1955 [facility] Address [address] [place] [address] Care Team Providers Name Role Phone Samantha Stauffer MD Primary Care Provider [phone] Reason for Visit Reason Comments Medication Questions Encounter Details Date Type Department Care Team Description 12/30/2020 Telephone [facility] Esther Walker Medicat ion Questions Neuroscience Center MD Prem Neurology [address] [facility] [address] [place] [address] [place], [place] [phone] (Wo rk) Social History Tobacco Use Types Packs/Day Years Used Date Smoking Tobacco: Never Smokeless Tobacco: Never Alcohol Use Standard Drinks/Week Comments Not Currently 0 (1 standard drink = 0.6 oz pure alcoho l) Sex Assigned at Date Recorded Not on file documented as of this encounter Nursing Notes Maria Esther Phan MD - 12/30/2020 4:34 PM CDT Called and discussed. Being evaluated and treated for cavitary lung lesion. Experiencing increased dystonia since reducing Rytary. Discussed OK to increase Rytary to 1 cap qid, and, if worse, then revert to the current tid regimen. Maximo Julio - 12/30/2020 11:39 AM CDT Rachelle calling on behalf of Dr. Thompson regarding questions about possibly changing medications for parkinson's. Dr. Thompson can be reached at [phone]. Thank you documented in this encounter Plan of Treatment Not on filedocumented as of this encounter Visit Diagnoses Not on filedocumented in this encounter Care Teams Mission Coordinator Relationship Specialty Start Date End Date Samantha Stauffer MD PCP - General Family Practice 12/12/191999 [place] [address] documented as of this encounter
--- OUTSIDE RECORDS SUMMARY | 2021-12-28 12:12 | XMS_ITS | Encounter Summary ---
:1955 Author Organization [facility] Address [address] [place] [address] Care Team Providers Name Role Phone Samantha Stauffer MD Primary Care Provider [phone] Reason for Visit Reason Comments Nurse Visit Encounter Details Date Type Department Care Team Description 12/25/2019 Office Visit Specialty Center 3931 Nurse, [id number] Nsu En counter for post Neurosurgery surgical wound check 3931 [facility]. (Primary Dx) [place], [place] [address] Social History Tobacco Use Types Packs/Day Years Used Date Smoking Tobacco: Never Smokeless Tobacco: Never Alcohol Use Standard Drinks/Week Comments Yes 0 (1 standard drink = 0.6 oz pure alcoho l) Sex Assigned at Date Recorded Not on file documented as of this encounter Patient Instructions Patient InstructionsKarin Singh RN - 12/25/2019 11:00 AM CDT Incision Care ?? Leave your incision open to air at all times. ?? You may get your incision wet in the shower. Use a gentle shampoo with no fragrance, such as babyshampoo, until the incision is completely healed. Allow soap and water to run over the incision, andgently pat it dry. ?? Do not apply any lotions, ointments, or hydrogen peroxide on the incision. ?? Do not soak in a bath, hot tub, or pool until the incision is completely healed. Pain Management ?? Do not take more than 4,000 mg of acetaminophen (Tylenol) in a 24-hour period (keep in mind you may already be taking acetaminophen in another medication such as Percocet or [place]). ?? If you are still taking prescription pain medication, continue cutting back as your pain improves. ?? Continue to use ice as needed (no longer than 20 minutes at one time). ?? NSAIDs: You are able to take NSAIDs such as, Ibuprofen (Advil), Naproxen (Aleve), Celecoxib (Celebrex), Meloxicam (Mobic), etc. for pain. Activity Restrictions ?? Continue activity restrictions as discussed at the time of your surgery. ?? No lifting greater than 10 pounds. ?? No strenuous activity. Avoid straining or bending over with your head below your heart. ?? Do not sleep on the incision side of your head. ?? Continue taking short, frequent walks. You may gradually increase distance as tolerated. Please call the Neurosurgery clinic with any questions. - Neurosurgery Nursing Line - Neurosurgery Call Center (scheduling appointments) documented in this encounter Progress Notes Karin Singh RN - 12/25/2019 11:00 AM CDT Patient presents for 2-week incision check following surgery. DOS: 12/12/19 Procedure: 1) Replacement of Right Activa PC IPG, Connectin of Two Extension Cables 2) Intraoperative impedence assessment, interrogation and programming (Preop interrogation, programming of the new generator and intra-operative impedence assessment took 8-10 minutes) Surgeon: Jorge L Kaiser MD Patient does not have any pain. He is not applying ice or heat to sore muscles. Discussed that thereare no restrictions on taking NSAIDs. Patient is walking frequently without difficulty with a cane. Discussed being able to lift more than10 pounds and do other activities as tolerated and increase slowly. Legs examined in clinic; no redness, swelling or warmth noted. Patient denies pain in bilateral calves. Activity restrictions reinforced at this time. Patient's appetite is back to baseline Bowel/bladder problems? no Taking stool softeners? no Patient denies signs of infection at incision site. Chest incision inspected. Edges well-approximated. No redness, swelling or warmth noted. Incision closed without anni or sutures. Aftercare instructions discussed with patient. All of patient's questions addressed today. He was instructed to call with any additional questions/concerns. Refills given at this appointment? No Sent for x-rays after this appointment? No Return to work discussed at this appointment? No documented in this encounter Plan of Treatment Not on filedocumented as of this encounter Visit Diagnoses Diagnosis Encounter for post surgical wound check - Primary documented in this encounter Care Teams Motorized Squad Commanding Officer Relationship Specialty Start Date End Date Samantha Stauffer MD PCP - General Family Practice 12/12/191999 [place] [address] documented as of this encounter
--- OUTSIDE RECORDS SUMMARY | 2021-12-28 12:12 | XMS_ITS | Encounter Summary ---
:1955 Author Organization [facility] Address [address], [place] [address] Care Team Providers Name Role Phone Lurdes Thomas MD Primary Care Provider Reason for Referral Consult/Transfer Care (Routine) - Closed Specialty Diagnoses / Procedures Referred By Contact Refer red To Contact Neurosurgery Diagnoses Parkinson's disease (HRC) Maria Esther Phan MD McIver, Jon I, MD [address] [facility] [address] [place], [place] [address] [place] [address] Fax: Referral ID Status Reason Start Date Expiration Date Visits Requ ested Visits Authorized [id number] Closed 11/13/2019 02/11/2021 1 1 Scheduling Instructions Your provider [facility]. You may call [phone], option 2 to schedule your appointment. We suggest you call your health insurance breanna about your coverage and benefits for this appointment. Reason for Visit Reason Comments FYI DBS battery Encounter Details Date Type Department Care Team Description 11/13/2019 Telephone Maria Esther Mckeon (DB S battery) Neuroscience Center MD Prem Neurology [address] [facility] [address] [place] [address] [phone] (Wo rk) Social History Tobacco Use Types Packs/Day Years Used Date Smoking Tobacco: Never Smokeless Tobacco: Never Alcohol Use Standard Drinks/Week Comments Yes 0 (1 standard drink = 0.6 oz pure alcoho l) Sex Assigned at Date Recorded Not on file documented as of this encounter Nursing Notes Doris Arauz RN - 11/13/2019 12:25 PM CDT Spoke with Andrew and his . Discussed different battery options. Told him if he mixed systems (I.egot a [place] [employer] battery, with Medtr[employer] lead) this is off label and he would not be eligiable for an MRI. Gave him [phone] number to call if he had not heard from Awilda's office in about a week. Matt Cates RN - 11/13/2019 11:44 AM CDT Relayed message from Dr. Phan to patient. Patient stated understanding and will wait for a call from Dr. Kaiser's office to schedule. Matt Cates RN 11/13/2019, 11:47 AM Maria Esther Phan MD - 11/13/2019 11:41 AM CDT Blaise, please let him know I am entering an order for Dr. Kaiser's office to call and schedule the battery replacement. [facility] nursing, can you facilitate with Dr. Kaiser's office? Twyla Marquez - 11/13/2019 9:39 AM CDT Pt called to inform that his DBS battery went to [facility] this morning. Please advise next steps in process of getting replacement scheduled. documented in this encounter Plan of Treatment Scheduled Referrals Name Type Priority Associated Diagnoses Order S chedule Neurosurgery (Non Spine) Referral Routine Parkinson's dise ase Ordered: 11/13/2019 Consult-Adult (HRC) documented as of this encounter Visit Diagnoses Diagnosis Parkinson's disease (HRC) - Primary documented in this encounter Care Teams Resident Buyer Relationship Specialty Start Date End Date Lurdes Thomas MD PCP - General 06/18/14 12/11/19 documented as of this encounter
--- OUTSIDE RECORDS SUMMARY | 2021-12-28 12:12 | XMS_ITS | Encounter Summary ---
:1955 Author Organization [facility] Address [address], [place] [address] Care Team Providers Name Role Phone Samantha Stauffer MD Primary Care Provider [phone] Reason for Visit Reason Comments Refill Encounter Details Date Type Department Care Team Description 05/24/2020 Refill [facility] Neuroscience Maria Esther Reis MD Refill Center Neurology [address] [facility] [address] [place] [address] [place] [address] [phone] Social History Tobacco Use Types Packs/Day Years [...] on filedocumented in this encounter Care Teams Overhead Door Technician Relationship Specialty Start Date End Date Samantha Stauffer MD PCP - General Family Practice 12/12/[address]1999 [place] [address] documented as of this encounter
--- OUTSIDE RECORDS SUMMARY | 2021-12-28 12:12 | XMS_ITS | Encounter Summary ---
:1955 Author Organization [facility] Address [address] [address] Care Team Providers Name Role Phone Lurdes Thomas MD Primary Care Provider Reason for Visit Reason Onset Date Comments Refill 08/01/2019 Encounter Details Date Type Department Care Team Description 08/01/2019 Refill [facility] Neuroscience Maria Esther Reis MD Refill Center Neurology [address] [facility] [address] [facility] [place] [address] [place] [address] [phone] Social History Tobacco Use Types Packs/Day Years Used Date Smoking Tobacco: Never Smokeless Tobacco: Never Alcohol Use Standard Drinks/Week Comments Yes 0 (1 standard drink = 0.6 oz pure alcoho l) Sex Assigned at Date Recorded Not on file documented as of this encounter Nursing Notes Abi Laughlin - 08/01/2019 10:30 AM CDT Refill request: Medication: Gocovri 137 mg capsules Sig: take 2 capsules by mouth every night at bedtime Qty: 60 Last Refill: 07/08/2019 Set Illustrator/Appt Center: Was the pharmacy entered into the Preferred Pharmacy field? Yes Abi Laughlin 08/01/2019, 10:31 AM documented in this encounter Plan of Treatment Not on filedocumented as of this encounter Visit Diagnoses Not on filedocumented in this encounter Care Teams Spine Specialist Relationship Specialty Start Date End Date Lurdes Thomas MD PCP - General 06/18/14 12/11/19 documented as of this encounter
--- OUTSIDE RECORDS SUMMARY | 2021-12-28 12:12 | XMS_ITS | Encounter Summary ---
:1955 [facility] Address [address] [place] [address] Care Team Providers Name Role Phone Samantha Stauffer MD Primary Care Provider [phone] Encounter Details Date Type Department Care Team Description 11/20/2019 Prep for Surgery Specialty [facility] 3931 Clementine Kaiser MD Neurosurgery [address] [address] [phone] Social History Tobacco Use Types Packs/Day Years [...] filedocumented in this encounter Care Teams Manager Ob Relationship Specialty Start Date End Date Samantha Stauffer MD PCP - General Family Practice 12/12/191999 [place] [address] documented as of this encounter
--- OUTSIDE RECORDS SUMMARY | 2021-12-28 12:12 | XMS_ITS | Encounter Summary ---
:[address] [facility] Address [address] [place] [address] Care Team Providers Name Role Phone Lurdes Thomas MD Primary Care Provider Reason for Referral Therapies (Routine) - Closed Specialty Diagnoses / Procedures Referred By Contact Refer red To Contact Diagnoses Dysphagia, unspecified type Parkinson's disease (HRC) Maria Esther Phan MD [address] [place], [place] [address] Referral ID Status Reason Start Date Expiration Date Visits Requ ested Visits Authorized [id number] Closed 06/17/2019 08/16/2019 1 1 Scheduling Instructions Your provider has recommended an appoint ment with a [facility] Speech Therapist. Please stop at the clinic check out desk for as sistance with scheduling or if you prefer to call for your appointment you may call [facility] at [phone]. We suggest you call your [facility] insurance company about your coverage and benefits for this appointment. D WORKER Reason for Visit Reason Comments REPORTING, NEW SYMPTOMS Encounter Details Date Type Department Care Team Description 06/17/2019 [facility] Prem SY[facility]TOM[facility] Neurology [address] [address] [place], [place] [phone] (Wo rk) Social History Tobacco Use Types Packs/Day Years Used Date Smoking Tobacco: Never Smokeless Tobacco: Never Alcohol Use Standard Drinks/Week Comments Yes 0 (1 standard drink = 0.6 oz pure alcoho l) Sex Assigned at Date Recorded Not on file documented as of this encounter Nursing Notes Twyla Marquez - 06/19/2019 2:26 PM CST Spouse called to update that pt saw PCP today and chest XR was negative for pneumonia. Has swallow eval scheduled on 06/24. FYI only, no call back needed at this time. D WORKER Matt Cates RN - 06/17/2019 10:13 AM CST Nurse called Natasha and relayed message from Dr. Phan to her. She stated understanding and had no further questions at this time. She was in agreement with plan. Matt Cates RN 06/17/2019, 10:15 AM D WORKER Maria Esther Phan MD - 06/17/2019 10:05 AM CST They should have his PCP check him and possily do a CXR if indicated. The we can have him see speechtherapy for swallow evaluation - order entered. D WORKER Maximo Julio - 06/17/2019 8:16 AM CST Patients Natasha, calling to request call back regarding symptoms she is concerned about. She states the patient has been coughing for the past week and she thought it was due to a cold however, now she thinks it is from aspiration from Parkinson's. Please call her back when available, Thank you. D WORKER documented in this encounter Plan of Treatment Scheduled Referrals Name Type Priority Associated Diagnoses Order S chedule Speech Therapy Referral Routine Dysphagia, unspe cified type Ordered: 06/17/2019 Parkinson's disease (HRC) documented as of this encounter Visit Diagnoses Diagnosis Dysphagia, unspecified type - Primary Parkinson's disease (HRC) documented in this encounter Care Teams Maintenance Of Way Supervisor Relationship Specialty Start Date End Date Lurdes Thomas MD PCP - General 06/18/14 12/11/19 documented as of this encounter
--- OUTSIDE RECORDS SUMMARY | 2021-12-28 12:12 | XMS_ITS | Encounter Summary ---
:1955 Author Organization [facility] Address [address], [place] [address] Care Team Providers Name Role Phone Samantha Stauffer MD Primary Care Provider [phone] Encounter Details Date Type Department Care Team Description [facility]/21[facility]2020 [facility] Princess Phan, [facility] [address] [place] [address] [place] [address] [phone] (Wo rk) Social History Tobacco Use Types Packs/Day Years Used Date Smoking Tobacco: Never Smokeless Tobacco: Never Alcohol Use Standard Drinks/Week Comments Not Currently 0 (1 standard drink = 0.6 oz pure alcoho l) Sex Assigned at Date Recorded Not on file documented as of this encounter Nursing Notes Chloé Denny - 12/25/2020 8:58 AM CDT RN called pt's spouse to let her know that Dr. Phan is aware and has no further recommendations at this time. Andrew continues to have a difficult time walking and is using a walker, but once he is feeling betterand his other problems are addressed, they will be working with PT. Chloé Denny 12/25/2020, 9:02 AM Mraia Esther Phan MD - 12/24/2020 2:59 PM CDT Thank you for the update. I am glad thhat other problems are being looked at as I could not explain all the recent changes on the basis of his PD alone. Chloé Denny - 12/24/2020 11:38 AM CDT RN finally able to get ahold of Spouse, Natasha, regarding pt. Prefers we call her cell phone in the future (current 651- number on file is an old number, contact info edited w/ current number : ph. [phone]) Natasha reports that since decreasing RYTARY to 1 cap po TID (about q 6 h), pt has improved PD zendejas and is no longer having dyskinesia. On the other hand, pt is having other medical problems - [facility] They are discussing potentially doing a procedure on him, but also found that pt has a possible mass in his lung that needs to be addressed first. Pt has an appt with [facility] in [place] tomorrow (12/25) as well as a f/u appt with GI specialist afterward. Pt was taken to the ER on Monday. Over the weekend he was coughing, having SOB, difficulty swallowing and eating. They were going to admit the pt to [facility], but they 'lost the bed'. Pt ended up being prescribed antibiotics for elevated WBCs and sent home. They are also going to delay his PT eval since other problems need to be managed first. Spouse feels that they have a handle on things currently, but wanted to relay this information to Dr. Phan in case he had any additional recommendations in the meantime? (They are going to keep us updated and have records faxed over from appts for provider to review) Chloé Denny 12/24/2020, 11:56 AM Chloé Denny - 12/22/2020 4:18 PM CDT RN called Natasha again 2 x to discuss concerns. Line again disconnected. Number is disconnected. RN sent a Offerpop message encouraging them to give us a call. Chloé Denny 12/22/2020, 4:19 PM Chloé Denny - 12/21/2020 3:55 PM CDT RN attempted to call Natasha back 2 x @ . [phone] and line was disconnected (message states destination not assigned). Then called . [phone], no answer. [facility] Chloé Denny 12/21/2020, 3:57 PM Maria Esther Phan MD - 12/21/2020 2:48 PM CDT Please call , see how things have changed since changing the dose of medications. It is likely that we reduced the Rytary too much. Nevertheless if she feels that he is declining certainly an evaluation at the would be appropriate as there may be other reasons for all this besides his Parkinson's. Maria Esther Phan MD Cristhian Dueñas - 12/21/2020 9:01 AM CDT Natasha is calling regarding pt - states pt is not him normal self having a hard time eating and swallowand other concerns - Natasha states she is thinking about admitting pt into the hospital - states she isover whelmed please call Natasha Dueñas 12/21/2020, 9:03 AM documented in this encounter Plan of Treatment Not on filedocumented as of this encounter Visit Diagnoses Not on filedocumented in this encounter Care Teams Fiber Technologist Relationship Specialty Start Date End Date Samantha Stauffer MD PCP - General Family Practice 12/12/[address]1999 [place] [address] documented as of this encounter
--- OUTSIDE RECORDS SUMMARY | 2021-12-28 12:12 | XMS_ITS | Encounter Summary ---
:1955 Author [facility] Address [address], [place] [address] Care Team Providers Name Role Phone Lurdes Thomas MD Primary Care Provider Reason for Visit Reason Comments Video Visit Consult/Transfer Care (Routine) - Closed Specialty Diagnoses / Procedures Referred By Contact Refer red To Contact Diagnoses Parkinson's disease (HRC) Maria Esther Phan MD [address] [place], [place] [address] Referral ID Status Reason Start Date Expiration Date Visits Requ ested Visits Authorized [id number] Closed 09/12/2019 12/11/2020 1 1 Encounter Details Date Type Department Care Team Description 09/18/2019 Tele[facility] [address] Divina Kaiser MD Parkinson's disease Neurosurgery [address] [facility] (Primary Dx) [address] [facility] [id number] [phone] Social History Tobacco Use Types Packs/Day Years Used Date Smoking Tobacco: Never Smokeless Tobacco: Never Alcohol Use Standard Drinks/Week Comments Yes 0 (1 standard drink = 0.6 oz pure alcoho l) Sex Assigned at Date Recorded Not on file documented as of this encounter Progress Notes Jake Vega RN - 09/18/2019 1:00 PM CDT Spoke to patient via telephone for rooming process. ?? Patient verified by name and birthdate: yes Completed medication reconciliation: yes Reviewed allergies: yes Reviewed social history, including alcohol/tobacco use: yes Reviewed barriers/safety tab: yes Reviewed pain screening: no ?? Confirmed that patient has 77 Pieces downloaded and ready: Yes ?? Patient is aware that provider will call at appointment time. ?? Jorge L Kaiser MD - 09/18/2019 1:00 PM CDT Date of Service: 09/18/19 Andrew Pang is a 64 y.o. male. Neurosurgery consultation is requested by Maria Esther Elizabeth Chief concern: Parkinson's disease HPI: Andrew Pang has Parkinson's disease and underwent bilateral deep brain stimulation surgery in 2014. He has a right infraclavicular active a PC generator. His generator is approaching end of life and he would like to discuss elective replacement. ROS: Intermittent right leg tremor. Difficulty speaking. Past Medical History: Diagnosis Date ??? 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 Hyperlipidemia (HRC) ??? Low back pain (HRC) ??? Osteoarthritis ??? Parkinson's disease (HRC) ??? Varicella uncomplicated childhood Past Surgical History: Procedure Laterality Date ??? DBS Bilateral 08/2014 STN ??? discectomy 2004 neck, did well ??? INGUINAL HERNIA REPAIR BILATERAL Left 11 yo ??? TONSILLECTOMY 4 yo Imaging: No pertinent imaging at this time. Exam: Alert, oriented. Slight dysarthria. Intermittent right lower limb tremor/dyskinesia, per patient report. A/P: Patient with right active a PC implantable pulse generator for Parkinson's disease. Generator approaching end of life. We discussed the risks of generator replacement, especially given the COVID-19 crisis. Informed Consent: I reviewed the diagnosis and indications for generator replacement. I reviewed the risks of surgicalcare and especially in the COVID-19 environment. Mr. Pang understands and consents to proceed with surgery. In reality, the surgery is very low risk, and will be performed as a same day surgery. The surgery will be performed under Propofol MAC and local anesthetic and should take less than one hour total time. Visit time: 30 minutes. Greater than 50% of time spent counseling or coordinating care. Jorge L Kaiser MD 09/18/2019, 1:35 PM documented in this encounter Plan of Treatment Scheduled Referrals Name Type Priority Associated Diagnoses Order S chedule Neurosurgery (Non Spine) Referral Routine Parkinson's dise ase Ordered: 09/12/2019 Consult-Adult (HRC) documented as of this encounter Visit Diagnoses Diagnosis Parkinson's disease (HRC) - Primary documented in this encounter Care Teams Snack Foods Mixer Operator Relationship Specialty Start Date End Date Lurdes Thomas MD PCP - General 06/18/14 12/11/19 documented as of this encounter
--- OUTSIDE RECORDS SUMMARY | 2021-12-28 12:12 | XMS_ITS | Encounter Summary ---
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 Call [facility] at [phone]. We suggest you call your health insurance company about your coverage an d benefits for this appointment. Encounter Details Date Type Department Care Team Description 11/13/2020 Office Visit Maria Esther Mckeon on's disease (HRC) (Primary Dx); [facility] MD Prem Dysphagia, unspecified type; Neurology [address] [place] [address] Dyskinesia due to Parkinson' s disease (HRC); [address] [place] [address] [place], [place] [phone] [id number] Social History Tobacco Use Types Packs/Day Years Used Date Smoking Tobacco: Never Smokeless Tobacco: Never Alcohol Use Standard Drinks/Week Comments Not Currently 0 (1 standard drink = 0.6 oz pure alcoho l) Sex Assigned at Date Recorded Not on file documented as of this encounter Last Filed Vital Signs Vital Sign Reading Time Taken Comments Blood Pressure 108/69 11/13/2020 8:47 AM CDT Pulse 90 11/13/2020 8:47 AM CDT Temperature - - Respiratory Rate - - Oxygen Saturation - - Inhaled Oxygen Concentration - - Weight 72.1 kg (159 lb) 11/13/2020 8:47 AM CDT Height - - Body Mass Index 20.41 12/12/2019 6:32 AM CDT documented in this encounter Progress Notes Maria Esther Phan MD - 11/13/2020 9:00 AM CDT Chief complaint: Followup Parkinson's. ?? History of present illness I am seeing today this 65-year-old man who comes in accompanied by his in follow-up of his Parkinson's disease. He has had Parkinson's disease for many years and he is status post bilateral subthalamic nucleus stimulation surgery with battery change November of 2019. I have not seen him in person in some time due to the pandemic. His accompanies him today. She feels that there has been a decline in the last 3 months and he agrees. He has been losing weight. He has been having more trouble withswallowing. He says that he has a lot of chest discomfort and epigastric discomfort after swallowing. Omeprazole was added lately and he has been doing bit better. He has an appointment for an endoscopy. He also has difficulty with swallowing higher up in his throat. We set him up for speech therapy evaluation and video swallow which has not taken place yet. He also had at least 1 fall. His is quite protective and she is very much concerned about leaving him alone because of the falls. He also tends to get orthostatic although not very often. Orthostatic hypotension has led to a couple of syncopal episodes over the last year. Thankfully he did not sustain any injuries with that. Dyskinesia isunder good control with the Gocovri. He does not have any hallucinations. He is forgetful of names but otherwise cognitively he is doing reasonably well. When he goes out for walks he uses walking sticks and his balance is better with that. He feels that the effect of the medication is suboptimal so even at peak he has some residual tremor. This was he did not use to be the case. I reviewed the past medical and surgical history, family and social history, current medications, allergies from electronic health record. There have not been any changes otherwise. ?? The review of system was significant for what is mentioned above, and others negative. MiniCog 5?? UPDRS (Unified Parkinson's Disease Rating Scale) 11/13/2020 Speech 3 - Marked impairment, difficult to understand. Facial Expression 1 - Minimal hypomimia, could be normal Poker Face. Tremor at rest - Face, lips, chin 0 - Absent. Tremor at rest - Hand (Right) 0 - Absent. Tremor at rest - Hand (Left) 0 - Absent. Tremor at rest - Foot (Right) 0 - Absent. Tremor at rest - Foot (Left) 0 - Absent. Action or Postural Tremor of hands (Right) 1 - Slight, present with action. Action or Postural Tremor of hands (Left) 1 - Slight, present with action. Rigidity - Neck 1 - Slight or detectable only when activated by mirror or other movements. Rigidity - Upper Extremity (Right) 1 - Slight or detectable only when activated by mirror or other movements. Rigidity - Upper Extremity (Left) 1 - Slight or detectable only when activated by mirror or other movements. Rigidity - Lower Extremity (Right) 1 - Slight or detectable only when activated by mirror or other movements. Rigidity - Lower Extremity (Left) 0 - Absent. Finger Taps (Right) 2 - Moderately impaired. Definite and early fatiguing. May have occasional arrests in movement. Finger Taps (Left) 2 - Moderately impaired. Definite and early fatiguing. May have occasional arrests in movement. Hand Movements (Right) 0 - Normal. Hand Movements (Left) 0 - Normal. Rapid Alternating Movements of Hands (Right) 0 - Normal. Rapid Alternating Movements of Hands (Left) 0 - Normal. Leg Agility (Right) 0 - Normal. Leg Agility (Left) 0 - Normal. Arising from Chair 1 - Slow, or may need more than one attempt. Posture 0 - Normal erect. Gait 2 - Walks with difficulty, but requires little or no assistance, may have some festination, short steps, or propulsion. Postural Stability 2 - Absence of postural response, would fall if not caught by examiner. Body Bradykinesia and Hypokinesia 1 - Minimal slowness, giving movement a deliberate character, could be normal for some persons. Possibly reduced amplitude. TOTAL FOR III. MOTOR EXAMINATION 20 Impression: 1. Parkinson disease stage 2, while on. 2. Status post bilateral deep brain subthalamic stimulation. Likely needs a new battery. 3. Parkinson disease dyskinesia, well controlled on Gocovri. 4. Dysarthria 5. Dysphagia ?? Discussion: Actually his motor score has not progressed very much. The last time that I have 1 on record was a little over 2 years ago and at that time it was 13 and today's 20. On the other hand his pull test is now positive so he has been losing postural reflexes and he is at higher risk for falls. He is also experiencing more difficulty with swallowing and speech. It is possible that he might need an adjustment to his stimulation settings as he appears to be at maximum allowed at this point he cannot increase the stimulation, and it is possible that we might need to adjust his medications. At this point, however, I would take care of the stomach issues 1st. I would like him to see speech therapy to evaluate his swallowing, and continue to treat his gastroesophageal reflux and proceed with the endoscopy isplanned. If all those things hospitalist nocturnist physician to be okay then I would have the patient come in for programming session for his stimulator. The meanwhile we will pursue physical therapy for his loss of posturalreflexes and increased risk of falls. He is in agreement with the plan. ?? Recommendations: 1. Continue with the same medications. 2. Keep the plan for swallow evaluation, speech therapy, and upper endoscopy. 3. Physical therapy for balance. 4. Call if the suboptimal effect of the medications continues. 5. If that is the case we will arrange for programming session at [place]. Next 6. Otherwise follow-up with me in 6 months time. Time spent 43 min Review of chart (notes, data): 5 min Review of outside records: 0 min History and examination: 15 min Counselin min Coordination of care: 3 min Documentation: 5 min Maria Esther Phan MD. documented in this encounter Plan of Treatment Scheduled Referrals Name Type Priority Associated Diagnoses Order S chedule Physical Therapy Referral Routine Parkinson's dis ease (HRC) Ordered: 11/13/2020 Dysphagia, unspe cified type Dyskinesia due to Parkinson' s disease (HRC) At risk for falling documented as of this encounter Visit Diagnoses Diagnosis Parkinson's disease (HRC) - Primary Dysphagia, unspecified type Dyskinesia due to Parkinson's disease ([facility]) Lack of coordination At risk for falling Personal history of fall documented in this encounter Care Teams Stope Miner Relationship Specialty Start Date End Date Samantha Stauffer MD PCP - General Family Practice 12/12/[address] [place] [address] documented as of this encounter
--- OUTSIDE RECORDS SUMMARY | 2021-12-28 12:12 | XMS_ITS | Encounter Summary ---
:1955 Author Organization [facility] Address [address] [place] [address] Care Team Providers Name Role Phone Lurdes Thomas MD Primary Care Provider Reason for Visit Reason Onset Date Comments Refill 06/03/2019 Encounter Details Date Type Department Care Team Description 06/03/2019 Refill [facility] Neuroscience Para Maria Esther newberry MD Refill Center Neurology [address] [address] [place] [address] [phone] Social History Tobacco Use Types Packs/Day Years Used Date Smoking Tobacco: Never Smokeless Tobacco: Never Alcohol Use Standard Drinks/Week Comments Yes 0 (1 standard drink = 0.6 oz pure alcoho l) Sex Assigned at Date Recorded Not on file documented as of this encounter Nursing Notes Maria Esther Phan MD - 06/03/2019 4:29 PM CST Citalopram [facility]. Abi Bazzi 06/03/2019 1:57 PM CST Refill request: Medication: Citalopram (CELEXA) 10 MG Sig: take 1 tab by mouth daily Qty: 90 tabs Last Refill: not given Diving Judge/Appt Center: Was the pharmacy entered into the Preferred Pharmacy field? Yes Abi Laughlin 06/03/2019, 1:58 PM E CLEANER documented in this encounter Plan of Treatment Not on filedocumented as of this encounter Visit Diagnoses Not on filedocumented in this encounter Care Teams House Worker Relationship Specialty Start Date End Date Lurdes Thomas MD PCP - General 06/18/14 12/11/19 documented as of this encounter
--- OUTSIDE RECORDS SUMMARY | 2021-12-28 12:12 | XMS_ITS | Encounter Summary ---
:1955 Author Organization [facility] Address [address] [place] [address] [place] [address] Care Team Providers Name Role Phone Samantha Stauffer MD Primary Care Provider [phone] Reason for Visit Auth/Cert Specialty Diagnoses / Procedures Referred By Contact Refer red To Contact Diagnoses Parkinson's disease (HRC) Procedures RIGHT DEEP BRAIN STIMULATOR GENERATOR REPLACEMENT Referral ID Status Reason Start Date Expiration Date Visits Requ ested Visits Authorized [id number] 1 1 Encounter Details Date Type Department Care Team Description 12/12/2019 Surgery Rastafari Operating Jorge L Kaiser MD RIGHT DEEP BRAIN Room [address] [facility] STIMULATOR GENERATOR [address] [place], [place] [phone] Social History Tobacco Use Types Packs/Day Years Used Date Smoking Tobacco: Never Smokeless Tobacco: Never Alcohol Use Standard Drinks/Week Comments Yes 0 (1 standard drink = 0.6 oz pure alcoho l) Sex Assigned at Date Recorded Not on file documented as of this encounter Last Filed Vital Signs Vital Sign Reading Time Taken Comments Blood Pressure 129/71 12/12/2019 8:30 AM CDT Pulse 77 12/12/2019 8:30 AM CDT Temperature 36 ??C (96.8 ??F) 12/12/2019 8:22 AM CDT Respiratory Rate 16 12/12/2019 8:22 AM CDT Oxygen Saturation 100% 12/12/2019 8:30 AM CDT Inhaled Oxygen Concentration - - [...] upper arm muscles. This includes pushing a lvn or vacuum and mopping floors. It also [...] can you learn more? 1. Go to [email or web address] or [email or web address]. 2. Enter D150 in the search box. Current as of: April 09, 2019?Content Version: 12.4 ?? [employer]. Care instructions adapted under license by your healthcare professional. If you have questions abouta medical condition or this instruction, always ask your healthcare professional. [employer] disclaims any warranty or liability for your [...] on Keflex including possible side effects. Prescriptions [facility] in [place]. Belongings checklist reviewed with patient and belongings [...] Kaiser MD - 12/12/2019 8:17 AM CDT [facility] Operative Note Surgery Date: 12/12/2019 Primary Surgeon: [...] 8-10 minutes) Implants: Activa PC Model number [id number] Serial No: [id number] Post-op Diagnosis: Parkinson's Disease, Right Infraclavicular IPG [...] - Rapid (COVID-19) (12/12/2019 6:06 AM CDT) [facility] Method Time Signature COVID-19 Not Not 12/12/2019 [facility] Interpretation Detected Detected 7:04 AM CDT LABORATORY Specimen Anatomical Collection Method Collection Time Receive d Time (Source) Location / / Volume Laterality Swab (Source Non-blood 12/12/2019 6:06 AM 0 6:09 Required) Collection / CDT AM CDT Unknown Narrative [facility] - 12/12/2019 7:04 A M CDT Test performed by real-time PCR. This test has been authorized by the FDA under an Emergency Use Authorization (EUA) for use by authorized laboratories. Jorge L Kaiser MD LAB_1 Performing Organization Address City/State/ZIP Code Phon e Number [facility] [address] [place] [address] documented in this encounter Visit Diagnoses Diagnosis Parkinson's disease (HRC) - Primary Parkinson's disease (HRC) documented in this encounter Admitting Diagnoses Diagnosis Parkinson's disease (HRC) documented in this encounter Administered Medications Inactive Administered Medications - up to 3 most recent administrations Medication Order MAR Action Action Date Dose Rate Site bupivacaine-epinephrine PF Given 12/12/2019 7:58 AM CDT 20 mL (SENSORCAINE) 0.25% -[id number] injection ONCE PRN, Starting on Stacey 12/12/19 [...] (COMPLETED) 0735 (Given - Provider: Luis Anaya, RECORD MAKER, DIMENSION WAREHOUSE SUPERVISOR) 2 g, Intravenous, Administer over 30 Min [...] (COMPLETED) 0637 (Given - Provider: Rubina Gomez, RN) 0.1-0.3 mL, Subcutaneous, ONCE, Stacey 12/11 at [...] infusion (CANCELED) 0636 (Started - Provider: Rubina Gomez, JAMAL)0817 (Anesthesia Fluid - Provider: Luis Anaya APRN, DIMENSION WAREHOUSE SUPERVISOR) 25 mL/hr, Intravenous, at 25 mL/hr, CONT INUOUS, Starting Stacey 12/12/19 at 0615, Administer on all preop surgery patients, ages 12 and older, unless specified differently in the Protocol for Preop Initiation of IV fluids Order Set., Pre-op NaCl 0.9%-KCl 20 mEq/liter infusion 0900 (Due) Intravenous, at 75 mL/hr, CONTINUOUS, Starting [facility] 12/12/19 at 09 00, Post-op PRN Medication Order 12/10/2019 12/11/2019 12/12/2019 acetaminophen (TYLENOL) tablet 650 mg 650 mg, Oral, Q4H PRN, Other, Mild Pain (pain score 1-4), Starting [facility] 12/12/19 at 0830, Every 4 hours while awake as needed. Give for mild pain or if patient prefers acetaminophen over other options for pain (all pain scores)., Post-op benzocaine-menthol (CEPACOL) lozenge 1 Lozenge 1 Lozenge, Oral, Q2H PRN, Throat Pain, Starting Stacey 12/12/19 at 0 957 bisacodyl (DULCOLAX) rectal suppository 10 mg 10 mg, Rectal, DAILY PRN, Other, Moderat e Constipation, Starting Stacey 12/12/19 at 0830, If unable to take oral senna (SENOKOT) or senna (SENOKOT) is ineffective., Post-op bupivacaine-epinephrine PF (SENSORCAINE) 0.25% -[id number] injecti on 0758 (Given - Provider: Jorge L Kaiser MD) ONCE PRN, Starting [facility] 12/12/19 at 0758, Intra-op gentamicin 80 mg-clindamycin 900 mg in s odium chloride 1000 mL (DABS) irrigation solution 0802 (Given - Provid er: Jorge L Kaiser MD) ONCE PRN, Starting [facility] 12/12/19 at 0802, Intra-op HYDROcodone-acetaminophen (NORCO) 5-325 MG per tablet 1-2 Tablet 1-2 Tablet, Oral, Q4H PRN, Other, Modera te Pain (pain score 5-7), Starting Stacey 12/12/19 at 0830, Post-op HYDROmorphone (DILAUDID) injection 0.3-0.5 mg 0.3-0.5 mg, Intravenous, Q2H PRN, Other, Severe Pain (pain score 8-10) if unable to take oral medications or for pain score increasing by 3 in 30 minutes, Starting Stacey 12/12/19 at 1216, May administer 1 hour after ORAL opioid administration if given for pain score escalation. Do NOT administer at the same time as ORAL opioids. HOLD if on FURNITURE SHAMPOOER., Post-op lidocaine (UROJET) 2 % prefilled syringe [...] time as IV opioids. HOLD if on FURNITURE SHAMPOOER., Post-op senna (SENOKOT) tablet 1-2 Tablet 1-2 Tablet, Oral, BID PRN, Other, Modera te Constipation, Starting Stacey 12/12/19 at 0830, Hold for loose stools, Post-op documented in this encounter Care Teams Rn Lvn Relationship Specialty Start Date End Date Samantha Stauffer MD PCP - General Family Practice 12/12/191999 [place] [address] documented as of this encounter
--- OUTSIDE RECORDS SUMMARY | 2021-12-28 12:13 | XMS_ITS | Encounter Summary ---
:1955 Author Organization [email or web address] Address [address] [place] [address] Care Team Providers Name Role Phone Lurdes Thomas MD Primary Care Provider Reason for Visit Reason Comments QUESTIONS, GENERAL MRI with DBS Encounter Details Date Type Department Care Team Description 10/18/2018 Telephone [facility] Shawnee Hilario, RN QUESTIONS, GENERAL (MRI [address] arriaga with DBS) [place], [place] [address] [facility] [phone] Social History Tobacco Use Types Packs/Day Years Used Date Smoking Tobacco: Never Smokeless Tobacco: Never Alcohol Use Standard Drinks/Week Comments Yes 0 (1 standard drink = 0.6 oz pure alcoho l) Sex Assigned at Date Recorded Not on file documented as of this encounter Nursing Notes Shawnee Hilario, RN - 10/18/2018 4:25 PM CDT There was no return phone call to [place] today about getting system checked. Will send FYI to and then close encounter. Shawnee Hilario RN - 10/18/2018 9:06 AM CDT Patient and significant other calling because patient needs an MRI of his lumbar spine and was supposed to have this morning at [facility]. They wanted to fax us a form to complete verifying his DBS system is MRI eligible. We have not seen patient here for well over a year, he see's Dr. Phan over at the [facility] in [place]. I offered 3 options to them. They could come here and have the check. They could ask their doctor to order MRI over at [facility] and someone there can check it or they could contact [employer] and see if anyone could go out to [place] to check. She will call us back and let us know what they decide. documented in this encounter Plan of Treatment Not on filedocumented as of this encounter Visit Diagnoses Not on filedocumented in this encounter Care Teams Clay Miner Relationship Specialty Start Date End Date Lurdes Thomas MD PCP - General 06/18/14 12/11/19 documented as of this encounter
--- OUTSIDE RECORDS SUMMARY | 2021-12-28 12:13 | XMS_ITS | Encounter Summary ---
:1955 [facility] Address [address] [place] [address] Care Team Providers Name Role Phone Lurdes Thomas MD Primary Care Provider Reason for Visit Reason Comments Follow-up Encounter Details Date Type Department Care Team Description 11/02/2018 Office Visit [facility]'s d iseasmono (HRC) (Primary Dx); [facility] Maria Esther Amaro MD Dyskinesia due to Parkinson's disease (H RC); Neurology [address] Vasovagal syncope; [address] [place] [address] [place], [place] [phone] [id number] Social History Tobacco Use Types Packs/Day Years Used Date Smoking Tobacco: Never Smokeless Tobacco: Never Alcohol Use Standard Drinks/Week Comments Yes 0 (1 standard drink = 0.6 oz pure alcoho l) Sex Assigned at Date Recorded Not on file documented as of this encounter Last Filed Vital Signs Vital Sign Reading Time Taken Comments Blood Pressure 121/69 11/02/2018 8:11 AM CDT Pulse 82 11/02/2018 8:11 AM CDT Temperature - - Respiratory Rate - - Oxygen Saturation - - Inhaled Oxygen Concentration - - Weight 80.7 kg (178 lb) 11/02/2018 8:11 AM CDT Height 185.4 cm (6' 1) 11/02/2018 8:11 AM CDT Body Mass Index 23.48 11/02/2018 8:11 AM CDT documented in this encounter Progress Notes Maria Esther Phan MD - 11/02/2018 8:15 AM CDT CHIEF COMPLAINT: Followup Parkinson's. ?? HISTORY OF PRESENT ILLNESS: Mr. Pang was seen in the company of his in followup of his Parkinson's. He fell in the bathroom when he fainted urinating in the middle of the night and hurt his back. CT scan shows mild left S1 impingement an dhe completed a course of steroids and starting PT on the . His pain is now gone. No other falls. No orthostatism during the day. Otherwise doing well. Nausea cleared with once a day lansoprazole. Gocovri is very helpful with the dyskinesia. He has resumed excesising. No other falls. Freezing has not been bad, except for first thing in the morning. ?? I reviewed the past medical and surgical history, family and social history, current medications, allergies from electronic health record. There have not been any changes otherwise. ?? REVIEW OF SYSTEMS: Significant for what is mentioned above, and others negative. ?? PHYSICAL EXAMINATION: Vital Signs: His blood pressure is 121/69 sitting, Heart rate is 82 and regular. Weight is 178 pounds with some weight loss being intentional, and height is 6 feet 1 inch. General Appearance: Normal. He is very mildly dyskinetic, somewhat nervous, but that is his normal. Mental Status: Alert, oriented, with normal attention, concentration, language, memory, fund of knowledge. Neurologic: Cranial nerves 2-12 are significant for somewhat pressured speech with mild dysarthria. Slight hearing loss, but otherwise normal. He has somewhat decreased facial expression. Motor: Good strength of the 4 extremities with no appreciable rigidity. There is minimal if any dyskinesia. Reflexes are symmetric without abnormal responses. There are no tremors. Thpsom-vddk-oxbmjo and itnj-bdvn-toya are accurate. There is minimal if any bradykinesia. He arises from a chair without difficulty, walks with good stride and arm swing, and his posture is normal, and his pull test is negative. ?? IMPRESSION: 1. Parkinson disease stage 2, while on. 2. Status post bilateral deep brain subthalamic stimulation. 3. Parkinson disease dyskinesia, well controlled on Gocovri. 4. Recent episodes of nausea associated with diaphoresis and presyncope. 5. Recent nocturnal syncope likely orthostatic. ?? DISCUSSION: Discussed orthostatic syncope and precautions. Discussed Inbrija. Discussed mechanism of orthostatism and prevention. Discussed CT scan findings and rationale for treatment of the baack problem. Discussed livedo reticularis from Gocovri. ?? RECOMMENDATIONS: 1. Keep appointment with PT. 2. Follow orthostatic precautions. 3. Continue same medications for Parkinson's. 4. Continue to monitor the DBS battery once a month. 5. Call if there is a drop in the voltage. 6. Follow up with me in 6 months' time, sooner if necessary. 7. Total time this visit: 30 minutes. Counseling time this visit: 15 minutes. Maria Esther Phan MD. 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
--- OUTSIDE RECORDS SUMMARY | 2021-12-28 12:13 | XMS_ITS | Encounter Summary ---
:1955 Author Organization [facility] Address [address], [place] [address] Care Team Providers Name Role Phone Lurdes Thomas MD Primary Care Provider Encounter Details Date Type Department Care Team Description 02/02/2015 Notes/Orders [facility] Katalina Laughlin, PT [address] [place] [address] [place] [address] [place], [place] [phone] (Wo rk) Social History Tobacco Use Types Packs/Day Years Used Date Smoking Tobacco: Never Smokeless Tobacco: Never Alcohol Use Standard Drinks/Week Comments Yes 0 (1 standard drink = 0.6 oz pure alcoho l) Sex Assigned at Date Recorded Not on file documented as of this encounter Discharge Summaries Katalina Laughlin, PT - 09/14/2015 8:14 AM CDT Pt was seen for initial evaluation 11/04/14, at which time it was suggested that he schedule additional follow up visits. Pt did not return as expected,so will d/c from PT. Goals partially met due to lack of follow up. Unable to determine current status. Expected Functional Outcomes: Patient/Carepartner to verbalize understanding of physical therapy recommendations in 90 day(s). Patient to demonstrate independence of home exercise program with updates/progression as indicated in 90 day(s). Patient/Carepartner to verbalize understanding of fall prevention strategies in 90 day(s). Patient/Carepartner to verbalize understanding of appropriate cuing strategies to facilitate safe mobility in 90 day(s). Patient to demonstrate awareness of body alignment and postural correction in 90 day(s). Patient to demonstrate improved transfer mechanics with greater ease in 90 days(s). Reduce pain to 0-3/10 and self-managed in 90 day(s). Katalina Laughlin PT Physical Therapist [place] License # [id number] documented in this encounter Plan of Treatment Not on filedocumented as of this encounter Visit Diagnoses Not on filedocumented in this encounter Care Teams Stadium Attendant Relationship Specialty Start Date End Date Lurdes Thomas MD PCP - General 06/18/14 12/11/19 documented as of this encounter
--- OUTSIDE RECORDS SUMMARY | 2021-12-28 12:13 | XMS_ITS | Encounter Summary ---
:1955 Author 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 [address] [place], [place] [phone] Social History Tobacco Use Types Packs/Day Years Used Date Smoking Tobacco: Never Smokeless Tobacco: Never Alcohol Use Standard Drinks/Week Comments Yes 0 (1 standard drink = 0.6 oz pure alcoho l) Sex Assigned at Date Recorded Not on file documented as of this encounter Last Filed Vital Signs Vital Sign Reading Time Taken Comments Blood Pressure 118/73 05/04/2018 3:45 PM SWIMMING POOL MAINTENANCE SUPERVISOR Pulse 85 05/04/2018 3:45 PM SWIMMING POOL MAINTENANCE SUPERVISOR Temperature - - Respiratory Rate - - Oxygen Saturation - - Inhaled Oxygen Concentration - - Weight 80.1 kg (176 lb 9.6 oz) 05/04/2018 3:45 PM SWIMMING POOL MAINTENANCE SUPERVISOR Height 185.4 cm (6' 1) 05/04/2018 3:45 PM SWIMMING POOL MAINTENANCE SUPERVISOR Body Mass Index 23.3 05/04/2018 3:45 PM SWIMMING POOL MAINTENANCE SUPERVISOR documented in this encounter Patient Instructions Patient InstructionsRichard Phan MD - 05/04/2018 3:45 PM CST A good site to look for clinical trials in Parkinson's is clinicaltrials.gov MING POOL MAINTENANCE SUPERVISOR documented in this encounter Progress Notes Richard Phan MD - 05/04/2018 12:00 AM CST DEIDRE PANG CSN: [id number] CLINIC NOTE NEUROLOGY PROGRESS NOTE DATE OF SERVICE: 05/04/2018 : 1955 CHIEF COMPLAINT: Followup Parkinson's. HISTORY OF PRESENT ILLNESS: Mr. Pang was seen in the company of his in followup of his Parkinson's. Last time I saw him was in July at [facility]. He has done reasonably well since then. He has been checking his battery every 2 months or so, and he just checked it within the last week. He noticed the battery voltage being 2.9. His stimulation parameters have not been changed. He feels that he gets a really good result so far. He is on Rytary 3 times a day, and does not experience any wearing off phenomena. He has not had any other side effects. He feels that the Gocovri has been phenomenal for treating his dyskinesia. He has very little dyskinesia now. He has not experienced any freezing of gait, basically since his surgery in 2014. He has bilateral subthalamic stimulators. He denies any cognitive difficulties. What has been a new problem, however, is that over the last 2-3 weeks he has had bouts of nausea. These happen very quickly. He generally does not throw up with them. They may last a few minutes and are associated with dizzy feeling, and he breaks out in a sweat. Yesterday he had 3 such episodes, and today in the morning, he had 1 episode when he got up from sleep, and he actually had a syncopal episode associated with that and he passed out. He did hit his head falling down. He went to the local emergency room and a CT scan of the brain was normal. He also had an ECG which he was told was normal. He does not have any chest pains associated with that. His blood pressure apparently was quite good. He was prescribed Zofran, and was given information about closed head injuries. He has not had any falls, otherwise. He has minimal, if any, dyskinesia. He denies any problems with control of bladder and bowel. He denies any depression or anxiety. He exercises regularly and he is quite consistent with that. There has been a lot of stress in the family. I reviewed the past medical and surgical history, family and social history, current medications, allergies from electronic health record. There have not been any changes otherwise. REVIEW OF SYSTEMS: Significant for what is mentioned above, and others negative. PHYSICAL EXAMINATION: Vital Signs: His blood pressure is 118/73 sitting, 118/68 standing. Heart rate is 86 and regular. Weight is 176 pounds with some weight loss being intentional, [...] without abnormal responses. There are no tremors. Suywoe-pcjd-jtxkay and yoqu-kulx-xytk are accurate. There is minimal if any bradykinesia. He arises from a chair without difficulty, walks with good stride and arm swing, and his posture is normal, and his pull test is negative. IMPRESSION: 1. Parkinson disease stage 2, while on. 2. Status post bilateral deep brain subthalamic stimulation. 3. Parkinson disease dyskinesia, well controlled on Gocovri. 4. Recent episodes of nausea associated with diaphoresis and presyncope. DISCUSSION: I do not really have a good explanation for his episodes of diaphoresis and nausea. It sounds like vasovagal syncope and presyncope. His stimulator works well and there is no problems with impedance to suggest a leak. He is not orthostatic. I think that it would be appropriate for him to follow through with visiting with his primary care physician, possibly having cardiac workup to make sure there are no cardiac causes for that. We may need to monitor his blood pressure at home to see if that might be a factor. For now, however, in terms of Parkinson's disease and his dyskinesia, everything works really well, and I am not going to be making any changes. I encouraged him to continue with his regular exercise program. He can use the Zofran for the nausea as needed, but it appears that the nausea is very short-lived, and I do not see why he would want to take the pill for something that goes away after a few minutes. A gastrointestinal workup may also be appropriate. RECOMMENDATIONS: 1. Follow up with primary care physician for the nausea. 2. Discussed precautions following the closed head injury earlier today. 3. Continue same medications for Parkinson's. 4. Continue to monitor the DBS battery once a month. 5. Call if there is a drop in the voltage. 6. Follow up with me in 6 months' time, sooner if necessary. 7. Total time this visit: 30 minutes. Counseling time this visit: 15 minutes. 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
--- OUTSIDE RECORDS SUMMARY | 2021-12-28 12:13 | XMS_ITS | Encounter Summary ---
:1955 Author Organization [facility] Address [address], [place] [address] Care Team Providers Name Role Phone Lurdes Thomas MD Primary Care Provider Reason for Visit Reason Comments Paperwork Gocovri Encounter Details Date Type Department Care Team Description 08/09/2017 Notes/Orders [facility] Doris Arauz, RN [address], [place] [address] Social History Tobacco Use Types Packs/Day Years Used Date Smoking Tobacco: Never Smokeless Tobacco: Never Alcohol Use Standard Drinks/Week Comments Yes 0 (1 standard drink = 0.6 oz pure alcoho l) Sex Assigned at Date Recorded Not on file documented as of this encounter Progress Notes Doris Arauz RN - 08/09/2017 2:43 PM CDT Faxed completed [employer] paperwork and Rx to [facility]. FAX: [phone] documented in this encounter Plan of Treatment Not on filedocumented as of this encounter Visit Diagnoses Not on filedocumented in this encounter Care Teams Yard Loader Operator Relationship Specialty Start Date End Date Lurdes Thomas MD PCP - General 06/18/14 12/11/19 documented as of this encounter
--- OUTSIDE RECORDS SUMMARY | 2021-12-28 12:13 | XMS_ITS | Encounter Summary ---
:1955 [facility] Address [address] [address] Care Team Providers Name Role Phone Lurdes Thomas MD Primary Care Provider Reason for Visit Reason Comments QUESTIONS, GENERAL Encounter Details Date Type Department Care Team Description 05/04/2018 Telephone [facility] Walker, GENERAL [facility] MD [facility] [address] [facility] [address] [place] [phone] (Wo rk) Social History Tobacco Use Types Packs/Day Years Used Date Smoking Tobacco: Never Smokeless Tobacco: Never Alcohol Use Standard Drinks/Week Comments Yes 0 (1 standard drink = 0.6 oz pure alcoho l) Sex Assigned at Date Recorded Not on file documented as of this encounter Nursing Notes Garret Soto, RN - 05/04/2018 11:54 AM CST Spoke with Natasha and advised her to have patient evaluated post-fall (given that he hit his head). Juve address this at local urgent care, and may call back to cancel appointment later today with . Garret Soto RN 05/04/2018, 11:55 AM Jeannette Greco - 05/04/2018 10:49 AM CST Received a call from Natasha Pt's spouse stating that Pt just fell and hit his head . Pt has appointmenttoday with Dr. Phan but Natasha does not know what to do , if she should bring Andrew into the hospital . Pt is currently laying down with ice on his head , Pt does have a bump . Please advise . Jeannette Michael 05/04/2018, 10:51 AM CH OFFICE MANAGER documented in this encounter Plan of Treatment Not on filedocumented as of this encounter Visit Diagnoses Not on filedocumented in this encounter Care Teams Ranger Aide Relationship Specialty Start Date End Date Lurdes Thomas MD PCP - General 06/18/14 12/11/19 documented as of this encounter
--- OUTSIDE RECORDS SUMMARY | 2021-12-28 12:13 | XMS_ITS | Encounter Summary ---
:1955 Author Organization [facility] Address [address] [address] Care Team Providers Name Role Phone Lurdes Thomas MD Primary Care Provider Encounter Details Date Type Department Care Team Description 05/05/2016 Notes/Orders [facility] Casi Cervantes, [address] corina MUHAMMAD [place], [place] [address] [address] [phone] [place] [phone] (Wo rk) Social History Tobacco Use Types Packs/Day Years Used Date Smoking Tobacco: Never Smokeless Tobacco: Never Alcohol Use Standard Drinks/Week Comments Yes 0 (1 standard drink = 0.6 oz pure alcoho l) Sex Assigned at Date Recorded Not on file documented as of this encounter Progress Notes Casi De La Rosa SLP - 05/05/2016 3:21 PM CST Client did not schedule additional speech therapy appointments as recommended at the time of initialevaluation on 11/04/2014. Certification period is now . Will close out speech chart at this time. If the client would like to pursue treatment in the future, a new speech evaluation and treatmentorder should be obtained from the physician. [employer] documented in this encounter Plan of Treatment Not on filedocumented as of this encounter Visit Diagnoses Not on filedocumented in this encounter Care Teams Feather Cutting Machine Feeder Relationship Specialty Start Date End Date Lurdes Thomas MD PCP - General 06/18/14 12/11/19 documented as of this encounter
--- OUTSIDE RECORDS SUMMARY | 2021-12-28 12:13 | XMS_ITS | Encounter Summary ---
:1955 Author Organization [facility] Address [address] [address] Care Team Providers Name Role Phone Lurdes Thomas MD Primary Care Provider Reason for Visit Reason Comments Spine Lumbar Encounter Details Date Type Department Care Team Description 05/26/2015 Office Visit [facility] Chris Cain, Right -sided low back Therapy Aurora Briggs, PT pain with right-sided [address] granados (Primary Dx) [place] [address] [place], [place] [phone] (Wo rk) Social History Tobacco Use Types Packs/Day Years Used Date Smoking Tobacco: Never Smokeless Tobacco: Never Alcohol Use Standard Drinks/Week Comments Yes 0 (1 standard drink = 0.6 oz pure alcoho l) Sex Assigned at Date Recorded Not on file documented as of this encounter Progress Notes Aurora Hickey, PT - 05/26/2015 10:30 AM CST Encounter date: 05/26/2015 Pt : 1955 [facility] Physical Therapy Progress Note Visit Number: 2 Initial Certification Period: 05/19/2015 to 08/17/15 Referring Provider: Dr. Maria Esther Phan Visit Diagnosis/ICD: Diagnosis ICD-10-CM ICD-9-CM 1. Right-sided low back pain with right-sided sciatica M54.41 724.3 Precautions: none Onset/Referral Date: 05/19/2015 Reason for Referral: -Outpatient PT. Orders: Evaluate and treat. [facility] Services: Programming RN, Social Work, therapy in the past Exacerbation Date: 04/21/2015 Last Referring MD Visit: 05/19/2015 SUBJECTIVE: Andrew is new to me today, initially assessed at [facility], and referred to [facility] location for convenience, and orthopedic care for back pain Most aggravating is p[ain with transitional movements OBJECTIVE Current Objective Findings: OSW score 40 shifted right dystonia throughout limbs with his Parkinsons, however, he reports his Parkinsons is significantly managed with the use of his bilateral brain stimulator right pelvis lower in standing, level with sitting increase pain with attempts at standing flexion,unable (+) slump test bilaterally, with pain on right side (-) SLR pain with transitional movements no pain at rest (+) prone knee flexion test hypomobile L4on L5, with right rot no pain with RFIL, no pain with REIL Treatment/Education Today: therapeutic ex (CPT 70456)15 min time spent with orthopedic assessment manual therapy (CPT 91475) 15 min in prone, general mobilization. afterwards, (-) prone knee flexion test, but pain with transitional movements In supine, end range rotational thrust to the right, repeated twice, and to the left, with cavitation. Afterwards, no pain with supine to sit, and sit to stand. still is shifted, but no pain therapeutic ex (CPT 66687) 15 min Added for HEP: supine DKTC, trunk rotation, cat camel, and hand knee rock ex handouts provided. Able to do all ex, without symptoms Afterwards, able to wit to stand without symptoms Timed Code Treatment Minutes: 45 Total Treatment Minutes: 45 Current Home Exercise Program List: DKTC, trunk rotation, cat camel, hand knee rock, body mechanics I did suggest possibility of using heel lift on right side ASSESSMENT/PROGRESS TOWARD GOALS: improvement after therapy with less symptoms. Still has shift to right, but unclear if the tone in his muscles is contributing to this as well. he does appear to have some scoliosis, he does not know if this has always been present Functional Goals/Outcomes: Patient/Carepartner to verbalize understanding of physical therapy recommendations in 90 day(s). Patient to demonstrate independence of home exercise program with updates/progression as indicated in 90 day(s). Patient to demonstrate awareness of body alignment and postural correction in 90 day(s). Reduce pain to <3 consistently with movement and when sleeping, to return to prior level of function without limitation from pain, in 90 day(s). Plan: will continue to see for manual therapy, exercise progression, modalities if needed. He has some equipment at home, and will bring in pictures, or manual for thisso that we can see what will work for him O TECHNICIAN documented in this encounter Plan of Treatment Not on filedocumented as of this encounter Visit Diagnoses Diagnosis Right-sided low back pain with right-beck ed sciatica (HRC) - Primary documented in this encounter Care Teams Social Work Assistant Relationship Specialty Start Date End Date Lurdes Thomas MD PCP - General 06/18/14 12/11/19 documented as of this encounter
--- OUTSIDE RECORDS SUMMARY | 2021-12-28 12:13 | XMS_ITS | Encounter Summary ---
:1955 Author Organization [facility] Address [address], [place] [address] Care Team Providers Name Role Phone Lurdes Thomas MD Primary Care Provider Reason for Referral Specialty Diagnoses / Procedures Referred By Contact Refer red To Contact Maria Esther Phan MD [address] [place], [place] [address] Referral ID Status Reason Start Date Expiration Date Visits Requ ested Visits Authorized ES OR MULES TEAMSTER Reason for Visit Reason Comments Back Pain Encounter Details Date Type Department Care Team Description 05/19/2015 Initial Consult [facility] Jordana Ham ht-sided low back Therapy M, PT pain with right-sided [address] [phone] Social History Tobacco Use Types Packs/Day Years Used Date Smoking Tobacco: Never Smokeless Tobacco: Never Alcohol Use Standard Drinks/Week Comments Yes 0 (1 standard drink = 0.6 oz pure alcoho l) Sex Assigned at Date Recorded Not on file documented as of this encounter Progress Notes Jordana Ham, PT - 05/19/2015 12:16 PM CST Visit Date: 05/19/2015 Patient : 1955 Physical Therapy Parkinson Evaluation/Plan of Care [facility] Initial Certification Period: 05/19/2015 to 08/17/15 Referring Provider: Dr. Maria Esther Phan Visit Diagnosis/ICD: Diagnosis ICD-10-CM ICD-9-CM 1. Right-sided low back pain with right-sided sciatica M54.41 724.3 Precautions: none Onset/Referral Date: 05/19/2015 Reason for Referral: -Outpatient PT. Orders: Evaluate and treat. [facility] Services: Programming RN, Social Work, therapy in the past Exacerbation Date: 04/21/2015 Last Referring MD Visit: 05/19/2015 SUBJECTIVE Pt here for MD and RN visits this morning. Pt reports he requested PT due to R lower back pain that has been hurting daily. Pain lasts most of the day but is worst in the morning. Reports the pain has been there for months with no improvement. Pt complained of pain in November 2014 when seen here for PT, and reports that this is the same pain. Pain is improved when pt exercises, drinks lots of water, andtakes an extra dose of medication in the middle of the night. Pt reports increased pain when transferring to standing and reaching towards the floor. Pt feels this is due to rigidity. Pt reports he rides a 3 wheel bike which helps with the pain. Patient's Therapy Goal: decrease pain, learn exercises to address the pain Current Comorbidities: Deep brain stimulation surgery. Mobility Limitations Reported: pain Balance/Falls in past 6 months: None reported. Motor Fluctuations Reported: Yes. Dyskinesia Reported - United Parkinson's Disease Rating Scale (UPDRS): No. Pain: 8/10 pain scale Location: sharp, stabbing pain in low back on R side Past Medical History: Past medical history, medication, and allergies were reviewed per patient report. History pertinent to therapy includes: Parkinson's disease , bilateral STN DBS surgery 09/09/14, depression, cervical disc surgery 200, hyperlipidemia, hernia repair, restless legs syndrome. .No pastmedical history on file. Assistive Devices: None. Support System: Lives with spouse/significant other. Living Situation: Private home, more than 1 level. -Access to residence: Stairs to enter. -Living location: [facility]. -Living environment: Urban-mostly paved areas to ambulate. Driving: Yes. Community Mobility: Independent community ambulation-unrestricted. Frequency of Outings: Get out 2-3 times a week. Community Resources: None/Unknown. Leisure Activities: Spending time with grand kids Formal Exercises: Biking stationary- has a recumbent bike, but does not use it. Bicycling outdoors- 3 wheeled recumbent Exercise Frequency: Occasional/sporadic. Communication: Low volume. 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 Cooperative. Pleasant. Motor Function at Time of Eval: On - best level of functioning on medication. Tremor Observed: None. Rigidity: (UPDRS)-(Judged on passive movement of major joint with pt relaxed in lower extremity. Cogwheeling to be ignored.) 2 = Mild to moderate. Area(s) Affected: Axial. Body Bradykinesia and Hypokinesia: (UPDRS)(Combining slowness, hesitancy, decreased armswing, small amplitude and poverty of movement in general). 2 = Mild degree of slowness and poverty of movement which is definitely abnormal. Alternatively, some reduced amplitude. Dyskinesia (at time of evaluation): Absent. Range of Motion: Spinal Mobility: severely restricted. Muscle Strength: Grossly within normal limits. Posture/Alignment (Gross assessment): Unremarkable Transfers: Sit to Stand: pain with standing Stand to Sit: Safe and independent. Stand-Pivot: Safe and independent. Spinal ROM Assessment: forward flexion- pain with initiation of movement, unable to complete ROM extension- mild pain at end point R lateral flexion- pain throughout, limited ROM L lateral flexion- no pain, good ROM R/L rotation- no pain, good ROM Spinal Palpation: pain with palpation at R lumbar extensor musculature at level L4-L5, no pain at surrounding musculature Special Tests: Sit-Slump test: negative Functional Testing: Timed Up and Go Test (TUG): (Subject stands from arm chair, walks 3 meters (9 feet 10 inches), and sits back down in chair. Test is timed. Scores of young adults <10 seconds, older adults taking >=13.5 seconds classified as fallers with prediction rate of 90%, >30 seconds indicative of significant difficulties with ADL's.) - 8.25 seconds. 30 Sec Sit Stands: did not complete secondary to pain (Ann: 13+ = low fall risk; 8-12 = medium fall risk; below 8 = high fall risk) Five Times Sit to Stand Test (FTSST): (above 15 seconds considered abnormal for older adults). Using Arms - 14 seconds, pushing off of his knees with hands; pain with each repetition Gait: Assistive Devices: No assistive device. Assistance Required: Independent. General Gait Description: Multistep turn., Reduced base of support. and Reduced trunk rotation. Gait Velocity (Distance/Time): 1.09 m/second Treatment Today: Physical Therapy Evaluation - 30 minutes Therapeutic exercise - 15 minutes - discussed therapist's recommendation to follow up at [facility] with orthopedic PT, provided pt with information regarding how to schedule follow up visit at their clinic, contacted [facility] to update them with transfer of pt; pt agreeable and verbalized understanding - recommended use of ice or heat on painful area, pt to determine which feels better, pt verbalized understanding ASSESSMENT Therapist Impression: Pt is a 60 year old male with diagnosis of Parkinson Disease referred to PT for evaluation and treatment of R sided low back pain. Pt cannot identify a cause of the pain but reports it has remained present and consistent for several months with no improvement. Pt with significantpain when standing, with forward and R side bending, and when sleeping. Pt reports he wakes several times each night due to the pain. Pt denies other mobility impairments at this time. Performed gross assessment of pt's spinal ROM and pt with significantly limited forward bending and R lateral flexionsecondary to pain. Pt also with pain to palpation over small portion of muscle at R side level L4-L5. Signs and symptoms consistent with possible joint sprain or impingement. Referred pt to outpatient clinic closer to home for treatment with forestry extension specialist. Pt to continue at [place] location. Pt would benefit from skilled PT for manual therapy/manipulation, pain relief modalities, and instruction in strengthening/stretching for low back. Pt agreeable to plan. Impairments: Gait pattern changes. Pain. Functional Limitations: Transfers: Difficult secondary to pain. Mobility Restrictions: Limited leisure activities. Limited household activities. Possible Barriers to Goal Achievement: None apparent. Rehab Prognosis: Good PLAN Planned Treatment: ADL/Home program. Manual therapy. Neuromuscular re-education. Therapeutic activities. Therapeutic exercise. Ultrasound. Interdisciplinary Referrals: PT at [facility], continue with POC Services Recommended: nothing at this time Frequency/Duration: 1-2 times a week for 8-10 visits; follow up PT may modify if needed Discharge Plan: Evaluation with recommendations. Satisfactory goals are achieved. Estimated Discharge: 90 days. Consent: Results of evaluation were reviewed with patient. Patient was receptive to treatment plan and participated in setting goals. Risks, benefits and alternatives to treatment were reviewed. Expected Functional Outcomes: Patient/Carepartner to verbalize understanding [...] without limitation from pain, in 90 day(s). Total Treatment: 45 minutes The steam crane operator is completed by the therapist and the referring clinician's electronic signature certifies medical necessity for the plan above. Completed by Jordana Ham PT License #: [id number] ES OR MULES TEAMSTER documented in this encounter Plan of Treatment Scheduled Referrals Name Type Priority Associated Diagnoses [facility] Referral Routine Right-sided low back edmond n Ordered: 05/19/2015, with right-sided sciatica Ex keagan: 05/19/2015 documented as of this encounter Visit Diagnoses Diagnosis Right-sided low back pain with right-beck ed sciatica (HRC) documented in this encounter Care Teams Garden Worker Relationship Specialty Start Date End Date Lurdes Thomas MD PCP - General 06/18/14 12/11/19 documented as of this encounter
--- OUTSIDE RECORDS SUMMARY | 2021-12-28 12:13 | XMS_ITS | Encounter Summary ---
:1955 Author Organization [facility] Address [address], [place] [address] Care Team Providers Name Role Phone Lurdes Thomas MD Primary Care Provider Reason for Visit Reason Comments Other Encounter Details Date Type Department Care Team Description 12/07/2017 Telephone [place] [facility] Doris Arauz, RN Other [address] [place], [place] [address] Social History Tobacco Use Types Packs/Day Years Used Date Smoking Tobacco: Never Smokeless Tobacco: Never Alcohol Use Standard Drinks/Week Comments Yes 0 (1 standard drink = 0.6 oz pure alcoho l) Sex Assigned at Date Recorded Not on file documented as of this encounter Nursing Notes Doris Arauz, RN - 12/07/2017 2:28 PM CDT Received call from [employer]. They have been trying to call Andrew to schedule shipment of Loylap and unable to reach him. Called and LM for Andrew asking him to call [employer] at [phone]. [employer] will mail a letter also, asking him to call them. documented in this encounter Plan of Treatment Not on filedocumented as of this encounter Visit Diagnoses Not on filedocumented in this encounter Care Teams Care Director Relationship Specialty Start Date End Date Lurdes Thomas MD PCP - General 06/18/14 12/11/19 documented as of this encounter
--- OUTSIDE RECORDS SUMMARY | 2021-12-28 12:13 | XMS_ITS | Encounter Summary ---
:1955 Author Organization [facility] Address [address] [place] [address] Care Team Providers Name Role Phone Lurdes Thomas MD Primary Care Provider Reason for Visit Reason Comments Refill Encounter Details Date Type Department Care Team Description 06/03/2019 Refill [facility] Neuroscience Maria Esther Reis MD Refill Center Neurology [address] [facility] [address] [place] [address] [place] [address] [phone] Social History Tobacco Use Types Packs/Day Years Used Date Smoking Tobacco: Never Smokeless Tobacco: Never Alcohol Use Standard Drinks/Week Comments Yes 0 (1 standard drink = 0.6 oz pure alcoho l) Sex Assigned at Date Recorded Not on file documented as of this encounter Nursing Notes Rachel Brown RN - 06/03/2019 1:11 PM CST Incorrect provider. Rachel Brown RN ACING TECHNICIAN documented in this encounter Plan of Treatment Not on filedocumented as of this encounter Visit Diagnoses Not on filedocumented in this encounter Care Teams Filler Sifter Helper Relationship Specialty Start Date End Date Lurdes Thomas MD PCP - General 06/18/14 12/11/19 documented as of this encounter
--- OUTSIDE RECORDS SUMMARY | 2021-12-28 12:13 | XMS_ITS | Encounter Summary ---
:1955 Author Organization [facility] Address [address] [place] [address] Care Team Providers Name Role Phone Lurdes Thomas MD Primary Care Provider Reason for Visit Reason Comments QUESTIONS, GENERAL Encounter Details Date Type Department Care Team Description 07/06/2017 Telephone [place] [place] [facility] Shawnee Hilario, RN QUESTIONS, GENERAL [address] [place] [address] Social History Tobacco Use Types Packs/Day Years Used Date Smoking Tobacco: Never Smokeless Tobacco: Never Alcohol Use Standard Drinks/Week Comments Yes 0 (1 standard drink = 0.6 oz pure alcoho l) Sex Assigned at Date Recorded Not on file documented as of this encounter Nursing Notes Shawnee Hilario, RN - 07/06/2017 11:33 AM CST I called patient to see if he would consider coming to talk at our next DBS meeting. He has also notbeen seen for over 2 years for a DBS battery check. He said he has seen the doctor at his other office. Encouraged him to schedule when he is due to be seen next and get his battery checked. A INSTRUCTOR documented in this encounter Plan of Treatment Not on filedocumented as of this encounter Visit Diagnoses Not on filedocumented in this encounter Care Teams Wet Process Head Miller Relationship Specialty Start Date End Date Lurdes Thomas MD PCP - General 06/18/14 12/11/19 documented as of this encounter
--- OUTSIDE RECORDS SUMMARY | 2021-12-28 12:13 | XMS_ITS | Encounter Summary ---
:1955 Author Organization [facility] Address [address] [address] Care Team Providers Name Role Phone Lurdes Thomas MD Primary Care Provider Reason for Visit Reason Comments Spine Lumbar Encounter Details Date Type Department Care Team Description 07/09/2015 Office Visit [place] [facility] Chris Cain, Right -sided low back Therapy Aurora Briggs, PT pain with right-sided [address] granados (Primary Dx) [place] [address] [place], [place] [phone] (Wo rk) Social History Tobacco Use Types Packs/Day Years Used Date Smoking Tobacco: Never Smokeless Tobacco: Never Alcohol Use Standard Drinks/Week Comments Yes 0 (1 standard drink = 0.6 oz pure alcoho l) Sex Assigned at Date Recorded Not on file documented as of this encounter Progress Notes Aurora Hikcey, PT - 07/09/2015 8:51 AM CST Encounter date: 07/09/2015 Pt : 1955 [facility] Physical Therapy Progress Note Visit Number: 13 Initial Certification Period: 05/19/2015 to 08/17/15 Referring Provider: Dr. Maria Esther Phan Visit Diagnosis/ICD: Diagnosis ICD-10-CM ICD-9-CM 1. Right-sided low back pain with right-sided sciatica M54.41 724.3 Precautions: none Onset/Referral Date: 05/19/2015 Orders: Evaluate and treat. [facility] Services: Programming RN, Social Work, therapy in the past Exacerbation Date: 04/21/2015 Last Referring MD Visit: 05/19/2015 SUBJECTIVE: Andrew report still doing well, keeping stimulator at a lower level. He does notice, however, that hisgait has a little more dystonia, and is working on rigth dosage of medication, but he likes the way that his back is feeling much better, and most noticeably being able to get up from sleeping, with less, to no, symptoms OBJECTIVE Current Objective Findings: OSW score 10, initial score 40 sit to stand with no pain today (-) slump (-) SLR hips cleared prone knee flexion (-) PA's to lumbar spine: less sensitive L4 L5, but still present,and less in upper lumbar Treatment/Education Today: time spent with above OBJ info and- therapeutic ex (CPT 75825)15 min reviewed /discussed HEP, home management, body mechanics with lifting, turning, pivoting ultrasound (CPT 43057) 12 min US to right LB for 10 min, 1.3 w/cm2, continuous manual therapy (CPT 82474) 18 min joint mobilization to lumbar spine gr 3 soft tissue mobilization, and use of GT5 tool to T and lumbar paraspinals Afterwards transition sit to stand painfree Timed Code Treatment Minutes: 45 Total Treatment Minutes: 45 Current Home Exercise Program List: hip series of stretching, cat camel, hand knee rock, body mechanics, side glides left, and SB with prayer stretch double knees up/down, and side/side for ab work flexion in step standing H/K's single leg raise seated hip hiking he will spend next 2 days seeing how the decreased intensity affects his medications as well body mechanics ASSESSMENT/PROGRESS TOWARD GOALS: improvement after therapy with less symptoms. no pain with transitional movement after therapy, muchimproved after last session. Appears that reducing the intensity of his brain stimulator on the left, will help his right back symptoms Functional Goals/Outcomes: Patient/Carepartner to verbalize understanding of physical therapy recommendations in 90 day(s). Patient to demonstrate independence of home exercise program with updates/progression as indicated in 90 day(s). MET Patient to demonstrate awareness of body alignment and postural correction in 90 day(s). MET Reduce pain to <3 consistently with movement and when sleeping, to return to prior level of function without limitation from pain, in 90 day(s). Improving, feels at least 75- 80% improvement Plan: See for 1 more time next week, then he sees his MD for recheck BED WORKER documented in this encounter Plan of Treatment Not on filedocumented as of this encounter Visit Diagnoses Diagnosis Right-sided low back pain with right-beck ed sciatica (HRC) - Primary documented in this encounter Care Teams Corporate Investigator Relationship Specialty Start Date End Date Lurdes Thomas MD PCP - General 06/18/14 12/11/19 documented as of this encounter
--- OUTSIDE RECORDS SUMMARY | 2021-12-28 12:13 | XMS_ITS | Encounter Summary ---
:1955 Author Organization [employer] Address [address] [address] Care Team Providers Name Role Phone Lurdes Thomas MD Primary Care Provider Reason for Visit Reason Comments QUESTIONS, GENERAL MRI and DBS Encounter Details Date Type Department Care Team Description 10/22/2018 Telephone [facility] Shawnee Hilario, RN QUESTIONS, GENERAL (MRI [address] arriaga and DBS) [place], [place] [address] [facility] [phone] Social History Tobacco Use Types Packs/Day Years Used Date Smoking Tobacco: Never Smokeless Tobacco: Never Alcohol Use Standard Drinks/Week Comments Yes 0 (1 standard drink = 0.6 oz pure alcoho l) Sex Assigned at Date Recorded Not on file documented as of this encounter Nursing Notes Shawnee Hilario, RN - 10/22/2018 11:27 AM CDT Natasha called back, she said she just take take him any day but Monday for an MRI. I had offered last week to have him come in and check his DBS and she never called back. They have an appointment On at [facility] and he is receiving his care over There. She should call there and ask the primary doctor to order his MRI over there where they can check his DBS battery. She should try to get done prior to him seeing Dr. Phan on the or the same day. documented in this encounter Plan of Treatment Not on filedocumented as of this encounter Visit Diagnoses Not on filedocumented in this encounter Care Teams Sfdc Technical Architect Relationship Specialty Start Date End Date Lurdes Thomas MD PCP - General 06/18/14 12/11/19 documented as of this encounter
--- OUTSIDE RECORDS SUMMARY | 2021-12-28 12:13 | XMS_ITS | Encounter Summary ---
:1955 Author Organization [facility] Address [address], [place] [address] Care Team Providers Name Role Phone Lurdes Thomas MD Primary Care Provider Reason for Visit Reason Comments Spine Lumbar Encounter Details Date Type Department Care Team Description 06/02/2015 Office Visit [place] [facility] Chris Cain, Right -sided low back Therapy Aurora Briggs, PT pain with right-sided [address] granados (Primary Dx) [place] [address] [place], [place] [phone] (Wo rk) Social History Tobacco Use Types Packs/Day Years Used Date Smoking Tobacco: Never Smokeless Tobacco: Never Alcohol Use Standard Drinks/Week Comments Yes 0 (1 standard drink = 0.6 oz pure alcoho l) Sex Assigned at Date Recorded Not on file documented as of this encounter Progress Notes Aurora Hickey, PT - 06/02/2015 10:07 AM CST Encounter date: 06/02/2015 Pt : 1955 [facility] Physical Therapy Progress Note Visit Number: 3 Initial Certification Period: 05/19/2015 to 08/17/15 Referring Provider: Dr. Maria Esther Phan Visit Diagnosis/ICD: Diagnosis ICD-10-CM ICD-9-CM 1. Right-sided low back pain with right-sided sciatica M54.41 724.3 Precautions: none Onset/Referral Date: 05/19/2015 Reason for Referral: -Outpatient PT. Orders: Evaluate and treat. [facility] Services: Programming RN, Social Work, therapy in the past Exacerbation Date: 04/21/2015 Last Referring MD Visit: 05/19/2015 SUBJECTIVE: Andrew reports symptoms are less with sit tostand, but still present. Has been compliant with ex OBJECTIVE Current Objective Findings: OSW score not measured today, initial score 40 shifted right dystonia throughout limbs with his Parkinsons, however, he reports his Parkinsons is significantly managed with the use of his bilateral brain stimulator right pelvis lower in standing, level with sitting. This is improved with small heel lift on right increase pain with attempts at standing flexion,unable (-) slump test bilaterally, with pain on right side (-) SLR pain with transitional movements, less , but still present no pain at rest (-) prone knee flexion test hypomobile L4on L5, with right rot no pain with RFIL, no pain with REIL Treatment/Education Today: therapeutic ex (CPT 26436)5 min time spent with orthopedic assessment ultrasound (CPT 98254) 12 min US to right LB for 10 min, 1.3 w/cm2, continous therapeutic ex (CPT 63385) 30 min Reviewed and practiced his HEP: supine DKTC, trunk rotation, cat camel, and hand knee rock ex side glides left 10 reps SB component when in prayer stretch position with hand knee rock Added: abdominal strengthening with double knees up/down, and rock knees side to side for obliques handouts provided. Able to do all ex, without symptoms Afterwards, able to wit to stand without symptoms REviewed his equipment that he has at home, can ride recumbent bike, work on chest press/biceps curls, and will perform the ab work on his bench at home Timed Code Treatment Minutes: 47 Total Treatment Minutes: 47 Current Home Exercise Program List: DKTC, trunk rotation, cat camel, hand knee rock, body mechanics, side glides left, and SB with prayer stretch double knees up/down, and side/side for ab work ASSESSMENT/PROGRESS TOWARD GOALS: improvement after therapy with less symptoms. Still has shift to right, but unclear if the tone in his muscles is contributing to this as well. he does appear to have some scoliosis, he does not know if this has always been present no pain with transitional movement Functional Goals/Outcomes: Patient/Carepartner to verbalize understanding of [...] manual therapy, exercise progression, modalities if needed. GER PHP documented in this encounter Plan of Treatment Not on filedocumented as of this encounter Visit Diagnoses Diagnosis Right-sided low back pain with right-beck ed sciatica (HRC) - Primary documented in this encounter Care Teams Improvement Nurse Relationship Specialty Start Date End Date Lurdes Thomas MD PCP - General 06/18/14 12/11/19 documented as of this encounter
--- OUTSIDE RECORDS SUMMARY | 2021-12-28 12:13 | XMS_ITS | Encounter Summary ---
:1955 Author Organization [facility] Address [address] [address] Care Team Providers Name Role Phone Lurdes Thomas MD Primary Care Provider Reason for Visit Reason Comments Spine Lumbar Encounter Details Date Type Department Care Team Description 07/16/2015 Office Visit [place] [facility] Chris Cain, Right -sided low back Therapy Aurora Briggs, PT pain with right-sided [address] granados (Primary Dx) [place] [address] [place], [place] [phone] (Wo rk) Social History Tobacco Use Types Packs/Day Years Used Date Smoking Tobacco: Never Smokeless Tobacco: Never Alcohol Use Standard Drinks/Week Comments Yes 0 (1 standard drink = 0.6 oz pure alcoho l) Sex Assigned at Date Recorded Not on file documented as of this encounter Progress Notes Aurora Hickey, PT - 07/19/2015 1:13 PM CST Encounter date: 07/16/2015 Pt : 1955 [facility] Physical Therapy Progress Note/Discharge Summary Visit Number: 14 Initial Certification Period: 05/19/2015 to 08/17/15 Referring Provider: Dr. Maria Esther Phan Visit Diagnosis/ICD: Diagnosis ICD-10-CM ICD-9-CM 1. Right-sided low back pain with right-sided sciatica M54.41 724.3 Precautions: none Onset/Referral Date: 05/19/2015 Orders: Evaluate and treat. [facility] Services: Programming RN, Social Work, therapy in the past Exacerbation Date: 04/21/2015 Last Referring MD Visit: 05/19/2015 SUBJECTIVE: Andrew report still doing well, keeping stimulator at a lower level.Overall, his biggest challenges, which were transitional movements getting up in morning, and sit tostand, or into/out of car, have significantly improved. He continues to have some symptoms, which are less frequent, and better managed. OBJECTIVE Current Objective Findings: OSW score 10, initial score 40 sit to stand with no pain, to minimal pain today (no pain after therapy) (-) slump (-) SLR hips cleared prone knee flexion (-) PA's to lumbar spine: less sensitive L4 L5, but still present,and none in upper lumbar Treatment/Education Today: time spent with above OBJ info and- therapeutic ex (CPT 52907)15 min reviewed /discussed HEP, home management, body mechanics with lifting, turning, pivoting ultrasound (CPT 07574) 12 min US to right LB for 10 min, 1.3 w/cm2, continuous manual therapy (CPT 95535) 18 min joint mobilization to lumbar spine gr 3 joint mobilization/end range thrust, in supine/rotstaional position soft tissue mobilization, and use of GT5 tool to T and lumbar paraspinals Afterwards transition sit to stand painfree Reviewed his goals, they have been met, or improved Timed Code Treatment Minutes: 45 Total Treatment [...] left, will help his right back symptoms He will be meeting with his Parkinson's disease specialist and review optimal performance and use regarding this area, and how it affects his back Functional Goals/Outcomes: Patient/Carepartner to verbalize understanding of physical therapy recommendations in 90 day(s). MET Patient to demonstrate independence of home exercise program with updates/progression as indicated in 90 day(s). MET Patient to demonstrate awareness of body alignment and postural correction in 90 day(s). MET Reduce pain to <3 consistently with movement and when sleeping, to return to prior level of function without limitation from pain, in 90 day(s). Improving, feels at least 75- 85% improvement Plan: will DC to [facility] at this time, encouraged Andrew to call if any questions, or return if needed Encounter Date: 07/16/2015 Pt : 1955 [facility] Physical Therapy Discharge Summary Patient was seen for therapy from 05/19/15 through 07/16/15. Patient was compliant with attendance and therapy recommendations. Outcome measures at discharge: PT Program:Spine, Lumbar/SI Modified Oswestry Low Back Pain Questionnaire (0-100%, 0% being best): 10 % Attainment of goals: The following is a review of the therapy goals: see above not for goals, met or improved. He will also meet with neurologist /Parkinson's specialistregarding his DBS, and effect of this on his back symptoms, so that he can have the best results foroverall functional performance. Discharge recommendations: Patient will continue to work independently with home program/self management strategies. Therapist instructed patient to call with questions or concerns. Patient to return to therapy if symptoms recur. T ROPE WALKER documented in this encounter Plan of Treatment Not on filedocumented as of this encounter Visit Diagnoses Diagnosis Right-sided low back pain with right-beck ed sciatica (HRC) - Primary documented in this encounter Care Teams Manager Of Training Relationship Specialty Start Date End Date Lurdes Thomas MD PCP - General 06/18/14 12/11/19 documented as of this encounter
--- OUTSIDE RECORDS SUMMARY | 2021-12-28 12:13 | XMS_ITS | Encounter Summary ---
:1955 Author Organization [employer] Address [address], [place] [address] Care Team Providers Name Role Phone Lurdes Thomas MD Primary Care Provider Encounter Details Date Type Department Care Team Description 05/06/2016 Notes/Orders [place] P, OTR/L [address] [place], [place] [address] [facility] [phone] [place] [address] (Wo rk) Social History Tobacco Use Types Packs/Day Years Used Date Smoking Tobacco: Never Smokeless Tobacco: Never Alcohol Use Standard Drinks/Week Comments Yes 0 (1 standard drink = 0.6 oz pure alcoho l) Sex Assigned at Date Recorded Not on file documented as of this encounter Progress Notes Tylor Martin OTR/Stefan - 05/06/2016 9:55 AM CST Client did not schedule additional occupational therapy appointments as recommended at the time of initial evaluation on 11/05/2015. . Certification period is now . Will close out occupational therapy chart at this time. If the client would like to pursue treatment in the future, a new occupational therapy evaluation and treatment order should be obtained from the physician. RODRIGUE Gandhi/Stefan 05/06/2016, 9:56 AM ' NT SERVICE COORDINATOR documented in this encounter Plan of Treatment Not on filedocumented as of this encounter Visit Diagnoses Not on filedocumented in this encounter Care Teams Induction Brazer Relationship Specialty Start Date End Date Lurdes Thomas MD PCP - General 06/18/14 12/11/19 documented as of this encounter
--- OUTSIDE RECORDS SUMMARY | 2021-12-28 12:13 | XMS_ITS | Encounter Summary ---
:1955 Author Organization [facility] Address [address] [address] Care Team Providers Name Role Phone Lurdes Thomas MD Primary Care Provider Reason for Visit Reason Comments Prior Authorization For Medication Gocovri Encounter Details Date Type Department Care Team Description 08/15/2017 Telephone [facility] Doris Arauz, Prior Authorization For [address] automatic silk screen printer (Gocovri) [place], [place] [id number] Social History Tobacco Use Types Packs/Day Years Used Date Smoking Tobacco: Never Smokeless Tobacco: Never Alcohol Use Standard Drinks/Week Comments Yes 0 (1 standard drink = 0.6 oz pure alcoho l) Sex Assigned at Date Recorded Not on file documented as of this encounter Nursing Notes Doris Arauz RN - 08/30/2017 5:34 PM CDT Andrew called to say he got the Gocovri in the mail and it is working well for him. He was appreciative of all the help. Doris Arauz RN - 08/15/2017 4:28 PM CDT Received notice that prior authorization is needed. Request was initiated over the phone. Pt's Insurer: Eleazar Insurer's contact #: [phone] Name of Drug: Goocovri 137mg Dx for Drug: dyskinesia due to PD medications Tried/failed drugs: Amantadine Medication was approved. Approval dates: 07/16/17 to 08/15/18 Case#: [id number] FYI documented in this encounter Plan of Treatment Not on filedocumented as of this encounter Visit Diagnoses Not on filedocumented in this encounter Care Teams Metal Model Maker Relationship Specialty Start Date End Date Lurdes Thomas MD PCP - General 06/18/14 12/11/19 documented as of this encounter
--- OUTSIDE RECORDS SUMMARY | 2021-12-28 12:13 | XMS_ITS | Encounter Summary ---
:1955 Author Organization [facility] Address [address] [place] [address] Care Team Providers Name Role Phone Lurdes Thomas MD Primary Care Provider Reason for Visit Reason Comments Device Check Consult/Transfer Care (Routine) - Closed Specialty Diagnoses / Procedures Referred By Contact Refer red To Contact Diagnoses Parkinson's disease ([facility]) Maria Esther Phan MD [address] [place], [place] [address] Referral ID Status Reason Start Date Expiration Date Visits Requ ested Visits Authorized [id number] Closed 08/08/2017 11/07/2018 1 1 Encounter Details Date Type Department Care Team Description 08/08/2017 Nursing Visit [facility] Shawnee Hilario, Parkinson's disease ([facility]) (P rimary Dx); [address] RN Encounter for fitting and adjustment of neuropacemaker of brain Drive [place], [place] [phone] Social History Tobacco Use Types Packs/Day Years Used Date Smoking Tobacco: Never Smokeless Tobacco: Never Alcohol Use Standard Drinks/Week Comments Yes 0 (1 standard drink = 0.6 oz pure alcoho l) Sex Assigned at Date Recorded Not on file documented as of this encounter Progress Notes Shawnee Hilario, RN - 08/08/2017 3:30 PM CDT Deep Brain Stimulation (DBS) Programming Note: HPI: Andrew Pang is a 62 y.o. with bilateral STN DBS implantation. Surgeon: Dr. Gonzalez Rowland Surgery date/location: August 2014 Battery replacement: None Device type: Activa PC Indication: Parkinsons disease Update since last visit: patient has not been seen for DBS battery check for over 2 years. He is exercising 4 times per week which really helps. He does have good days and bad days but his thinks he isn't always to good about taking his medications properly, we discussed this. Initial settings: Left STN: 0 negative Case positive 2.7V PW 60 rate 150. Therapy impedence 1286 2.117 Right STN: 9 negative 10 positive 2.6V PW 60 Rate 150. 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 He was planning on speaking at our DBS information class this weekend but he may not be able to get a ride. Supervising provider: Dr. Maria Esther Hilario, RN documented in this encounter Plan of Treatment Scheduled Referrals Name Type Priority Associated Diagnoses Order S chedule DBS PROGRAMMING CONSULT Referral Routine Parkinson's disea se Ordered: 08/08/2017 (AMB) ([facility]) documented as of this encounter Visit Diagnoses Diagnosis Parkinson's disease ([facility]) - Primary Encounter for fitting and adjustment of neuropacemaker of brain Fitting and adjustment of neuropacemaker (brain) (peripheral nerve) (spinal cord) documented in this encounter Care Teams Astro Technician Relationship Specialty Start Date End Date Lurdes Thomas MD PCP - General 06/18/14 12/11/19 documented as of this encounter
--- OUTSIDE RECORDS SUMMARY | 2021-12-28 12:13 | XMS_ITS | Encounter Summary ---
:1955 Author Organization [facility] Address [address] [address] Care Team Providers Name Role Phone Lurdes Thomas MD Primary Care Provider Reason for Visit Reason Comments Spine Lumbar Encounter Details Date Type Department Care Team Description 05/28/2015 Office Visit [place] [facility] Chris Cain, Right -sided low back Therapy Aurora Briggs, PT pain with right-sided [address] granados (Primary Dx) [place] [address] [place], [place] [phone] (Wo rk) Social History Tobacco Use Types Packs/Day Years Used Date Smoking Tobacco: Never Smokeless Tobacco: Never Alcohol Use Standard Drinks/Week Comments Yes 0 (1 standard drink = 0.6 oz pure alcoho l) Sex Assigned at Date Recorded Not on file documented as of this encounter Progress Notes Aurora Hickey, PT - 05/28/2015 12:14 PM CST Encounter date: 05/28/2015 Pt : 1955 [facility] Physical Therapy Progress Note Visit Number: 2 Initial Certification Period: 05/19/2015 to 08/17/15 Referring Provider: Dr. Maria Esther Phan Visit Diagnosis/ICD: Diagnosis ICD-10-CM ICD-9-CM 1. Right-sided low back pain with right-sided sciatica M54.41 724.3 Precautions: none Onset/Referral Date: 05/19/2015 Reason for Referral: -Outpatient PT. Orders: Evaluate and treat. [facility] Services: Programming RN, Social Work, [...] with REIL Treatment/Education Today: therapeutic ex (CPT 95718)15 min time spent with orthopedic assessment manual therapy (CPT 78646) 15 min in prone, general mobilization. In supine, end range rotational thrust to the right, repeated twice, and to the left, with cavitation. Afterwards, no pain with supine to sit, and sit to stand. still is shifted, but no pain ultrasound (CPT 92883) 12 min Added: US to right LB for 10 min, 1.3 w/cm2, continous therapeutic ex (CPT 53986) 15 min Reviewed and practiced his HEP: supine DKTC, trunk rotation, cat camel, and hand knee rock ex Added: side glides left 10 reps added: SB component when in prayer stretch position with hand knee rock handouts provided. Able to do all ex, without symptoms Afterwards, able to wit to stand without symptoms Timed Code Treatment Minutes: 42 Total Treatment Minutes: 42 Current Home Exercise Program List: DKTC, trunk rotation, cat camel, hand knee rock, body mechanics, side glides left, and SB with prayer stretch ASSESSMENT/PROGRESS TOWARD GOALS: improvement after therapy with [...] can see what will work for him [place]. Advised to use lumbar support with sitting ULTURIST documented in this encounter Plan of Treatment Not on filedocumented as of this encounter Visit Diagnoses Diagnosis Right-sided low back pain with right-beck ed sciatica (HRC) - Primary documented in this encounter Care Teams Electric Spot Welder Relationship Specialty Start Date End Date Lurdes Thomas MD PCP - General 06/18/14 12/11/19 documented as of this encounter
--- OUTSIDE RECORDS SUMMARY | 2021-12-28 12:13 | XMS_ITS | Encounter Summary ---
:1955 Author Organization [facility] Address [address], [place] [address] Care Team Providers Name Role Phone Lurdes Thomas MD Primary Care Provider Reason for Visit Reason Comments Spine Lumbar Encounter Details Date Type Department Care Team Description 06/16/2015 Office Visit [place] [facility] Chris Cain, Right -sided low back Therapy Aurora Briggs, PT pain with right-sided [address] granados (Primary Dx) [place] [address] [place], [place] [phone] (Wo rk) Social History Tobacco Use Types Packs/Day Years Used Date Smoking Tobacco: Never Smokeless Tobacco: Never Alcohol Use Standard Drinks/Week Comments Yes 0 (1 standard drink = 0.6 oz pure alcoho l) Sex Assigned at Date Recorded Not on file documented as of this encounter Progress Notes Aurora Hickey, PT - 06/23/2015 2:03 PM CST Encounter date: 06/16/2015 Pt : 1955 [facility] Physical Therapy Progress Note Visit Number: 8 Initial Certification Period: 05/19/2015 to 08/17/15 Referring Provider: Dr. Maria Esther Phan Visit Diagnosis/ICD: Diagnosis ICD-10-CM ICD-9-CM 1. Right-sided low back pain with right-sided sciatica M54.41 724.3 Precautions: none Onset/Referral Date: 05/19/2015 Orders: Evaluate and treat. [facility] Services: Programming RN, Social Work, therapy in the past Exacerbation Date: 04/21/2015 Last Referring MD Visit: 05/19/2015 SUBJECTIVE: Andrew reports much less symptoms with sit tostand, but still present. Has been compliant with ex. After last session, had a few days pain free. Was able to sled with grand kids, and no worsening of symptoms afterwards OBJECTIVE Current Objective Findings: OSW score 18, initial score 40 shifted right dystonia throughout limbs with his Parkinsons, however, he reports his Parkinsons is significantly managed with the use of his bilateral brain stimulator Treatment/Education Today: time spent with above OBJ info and- therapeutic ex (CPT 95988)20 min Discussed hip series of stretches to combine some of the exercises he has been doing reviewed flexion in step standing, left, than right. He still gets a little glitch on right side side glide left, but can go down farther single leg raise in hands/knees position, 5 sec hold Added: in 1/2 sitting, hip hiking right for QL. He reports feeling an excellent stretch with this, no pain. ultrasound (CPT 92001) 11 min US to right LB for 10 min, 1.3 w/cm2, continuous manual therapy (CPT 96899) 12 min soft tissue mobilization, and use of roofer helper tool to T and lumbar parsspinals Timed Code Treatment Minutes: 43 Total Treatment Minutes: 43 Current Home Exercise Program List: hip series of streteching, cat camel, hand knee rock, body mechanics, side glides left, and SB with prayer stretch double knees up/down, and side/side for ab work added flexion in step standing H/K's single leg raise seated hip hiking ASSESSMENT/PROGRESS TOWARD GOALS: improvement after therapy with less symptoms. no pain with transitional movement after therapy, muchimproved after last session Functional Goals/Outcomes: Patient/Carepartner to verbalize understanding of physical therapy recommendations in 90 day(s). Patient to demonstrate independence of home exercise program with updates/progression as indicated in 90 day(s). MET Patient to demonstrate awareness of body alignment and postural correction in 90 day(s). Improved Reduce pain to <3 consistently with movement and when sleeping, to return to prior level of function without limitation from pain, in 90 day(s). Improving, feels at least a 60% improvement Plan: will continue to see for manual therapy, exercise progression, modalities if needed. Advised to schedule 3-4 more sessions. He is also going to contact his insurance regarding continuing therapy beyondinitial 6 that are set up [facility] documented in this encounter Plan of Treatment Not on filedocumented as of this encounter Visit Diagnoses Diagnosis Right-sided low back pain with right-beck ed sciatica (HRC) - Primary documented in this encounter Care Teams Jailkeeper Relationship Specialty Start Date End Date Lurdes Thomas MD PCP - General 06/18/14 12/11/19 documented as of this encounter
--- OUTSIDE RECORDS SUMMARY | 2021-12-28 12:13 | XMS_ITS | Encounter Summary ---
:1955 Author Organization [facility] Address [address] [place] [address] Care Team Providers Name Role Phone Lurdes Thomas MD Primary Care Provider Reason for Visit Reason Comments Medication Questions Encounter Details Date Type Department Care Team Description 06/07/2018 Telephone [facility] Medic[facility] ion Questions [facility] MD [facility] Neurology [address] [facility] [address] [place] [address] [place], [place] [phone] (Wo rk) Social History Tobacco Use Types Packs/Day Years Used Date Smoking Tobacco: Never Smokeless Tobacco: Never Alcohol Use Standard Drinks/Week Comments Yes 0 (1 standard drink = 0.6 oz pure alcoho l) Sex Assigned at Date Recorded Not on file documented as of this encounter Nursing Notes Jeannette Porras RN - 06/12/2018 3:17 PM CST Informed Natasha of Dr. Phan' recommendations. Jeannette Porras RN Y JUMP MASTER Maria Esther Phan MD - 06/08/2018 11:45 AM CST No problem with lansoprazole. Y JUMP MASTER Yenny Ray - 06/07/2018 4:40 PM CST Pt natasha calling stating that pt was given a new medication by his PCP for acid reflex but they would like to know if Dr. Phan is ok with pt taking this medication. Pt was started on lansoprazole to treat the acid reflex. Please Advise Y JUMP MASTER documented in this encounter Plan of Treatment Not on filedocumented as of this encounter Visit Diagnoses Not on filedocumented in this encounter Care Teams Referral Agent Relationship Specialty Start Date End Date Lurdes Thomas MD PCP - General 06/18/14 12/11/19 documented as of this encounter
--- OUTSIDE RECORDS SUMMARY | 2021-12-28 12:13 | XMS_ITS | Encounter Summary ---
:1955 Author Organization [facility] Address [address], [place] [address] Care Team Providers Name Role Phone Lurdes Thomas MD Primary Care Provider Reason for Visit Reason Comments Spine Lumbar Encounter Details Date Type Department Care Team Description 06/04/2015 Office Visit [place] [facility] Chris Cain, Right -sided low back Therapy Aurora Briggs, PT pain with right-sided [address] granados (Primary Dx) [place] [address] [place], [place] [phone] (Wo rk) Social History Tobacco Use Types Packs/Day Years Used Date Smoking Tobacco: Never Smokeless Tobacco: Never Alcohol Use Standard Drinks/Week Comments Yes 0 (1 standard drink = 0.6 oz pure alcoho l) Sex Assigned at Date Recorded Not on file documented as of this encounter Progress Notes Aurora Hickey, PT - 06/23/2015 2:07 PM CST Encounter date: 06/04/2015 Pt : 1955 [facility] Physical Therapy Progress Note Visit Number: 5 Initial Certification Period: 05/19/2015 to 08/17/15 Referring Provider: Dr. Maria Esther Phan Visit Diagnosis/ICD: Diagnosis ICD-10-CM ICD-9-CM 1. Right-sided low back pain with right-sided sciatica M54.41 724.3 Precautions: none Onset/Referral Date: 05/19/2015 Orders: Evaluate and treat. [facility] Services: Programming RN, Social Work, therapy in the past Exacerbation Date: 04/21/2015 Last Referring MD Visit: 05/19/2015 SUBJECTIVE: Andrew reports symptoms are less with sit tostand, but still present. Has been compliant with ex OBJECTIVE Current Objective Findings: OSW score 28, initial score 40 shifted right dystonia throughout limbs with his Parkinsons, however, he reports his Parkinsons is significantly managed with the use of his bilateral brain stimulator increase pain with attempts at standing flexion,unable, but seated flexion is ok (-) SLR pain with transitional movements, less , but still present no pain at rest (-) prone knee flexion test hypomobile L4on L5, with right rot no pain with RFIL, no pain with REIL Treatment/Education Today: time spent with above OBJ info and- manual therapy (CPT 63902) 10 min joint mobilization, supine end range thrust technique, right and left, repeated twice therapeutic ex (CPT 50428)25 min added hip series of stretches to combine some of the exercises he has been doing ultrasound (CPT 46745) 10 min US to right LB for 10 min, 1.3 w/cm2, continous Timed Code Treatment Minutes: 45 Total Treatment Minutes: 45 Current Home Exercise Program List: hip series of streteching, cat camel, hand knee rock, body mechanics, side glides left, and SB with prayer stretch double knees up/down, and side/side for ab work ASSESSMENT/PROGRESS TOWARD GOALS: improvement after therapy with less symptoms. no pain with transitional movement after therapy Functional Goals/Outcomes: Patient/Carepartner to verbalize understanding of [...] manual therapy, exercise progression, modalities if needed. ST BUFFER documented in this encounter Plan of Treatment Not on filedocumented as of this encounter Visit Diagnoses Diagnosis Right-sided low back pain with right-beck ed sciatica (HRC) - Primary documented in this encounter Care Teams Beauty Culturist Relationship Specialty Start Date End Date Lurdes Thomas MD PCP - General 06/18/14 12/11/19 documented as of this encounter
--- OUTSIDE RECORDS SUMMARY | 2021-12-28 12:13 | XMS_ITS | Encounter Summary ---
:1955 Author Organization [facility] Address [address] [address] Care Team Providers Name Role Phone Lurdes Thomas MD Primary Care Provider Reason for Visit Reason Onset Date Comments Refill 07/31/2018 Encounter Details Date Type Department Care Team Description 07/31/2018 Refill [facility] Neuroscience Maria Esther Reis MD Refill Center Neurology [address] [facility] [address] [facility] [place] [address] [place] [address] [phone] Social History Tobacco Use Types Packs/Day Years [...] on filedocumented in this encounter Care Teams Quality Review Specialist Relationship Specialty Start Date End Date Lurdes Thomas MD PCP - General 06/18/14 12/11/19 documented as of this encounter
--- OUTSIDE RECORDS SUMMARY | 2021-12-28 12:13 | XMS_ITS | Encounter Summary ---
:1955 Author Organization [employer] Address [address] [address] Care Team Providers Name Role Phone Lurdes Thomas MD Primary Care Provider Reason for Visit Reason Comments Other Encounter Details Date Type Department Care Team Description 12/09/2014 Telephone [facility] Doris Arauz, RN Other [address] [place] [address] Social History Tobacco Use Types Packs/Day Years Used Date Smoking Tobacco: Never Smokeless Tobacco: Never Alcohol Use Standard Drinks/Week Comments Yes 0 (1 standard drink = 0.6 oz pure alcoho l) Sex Assigned at Date Recorded Not on file documented as of this encounter Nursing Notes Doris Arauz, RN - 12/09/2014 4:59 PM CDT Saw Andrew today for DBS visit per request. See previous phone note. He states that since stopping neupro he has been freezing more, but he also feels more calm and thoughts are not racing. Increased his stimulation on both sides and he felt his gait was better, less hesitation upon initiation. He will give new settings a try and call us if he needs anything. Please sign pended orders. Thanks. documented in this encounter Plan of Treatment Not on filedocumented as of this encounter Visit Diagnoses Diagnosis Paralysis agitans (HRC) - Primary Paralysis agitans documented in this encounter Care Teams Transit Mixer Driver Relationship Specialty Start Date End Date Lurdes Thomas MD PCP - General 06/18/14 12/11/19 documented as of this encounter
--- OUTSIDE RECORDS SUMMARY | 2021-12-28 12:13 | XMS_ITS | Encounter Summary ---
:1955 Author Organization [facility] Address [address] [place] [address] Care Team Providers Name Role Phone Lurdes Thomas MD Primary Care Provider Reason for Visit Reason Comments Research Encounter Details Date Type Department Care Team Description 05/21/2015 Telephone [facility] Maria Esther Phan MD Research [address] [place], [place] [address] [place] [address] (Wo rk) Social History Tobacco Use Types Packs/Day Years Used Date Smoking Tobacco: Never Smokeless Tobacco: Never Alcohol Use Standard Drinks/Week Comments Yes 0 (1 standard drink = 0.6 oz pure alcoho l) Sex Assigned at Date Recorded Not on file documented as of this encounter Nursing Notes Maria Esther Phan MD - 05/21/2015 2:00 PM CST He will stop the citalopram and start sertraline (generic for Zoloft) 50 mg every day. No need to taper down or up, just stop the citalopram and start the sertraline the next day. Prescription sent. sap Abi Gunderson RN - 05/21/2015 11:26 AM CST I spoke with Andrew today and shared the [facility]. [facility] would like to pursue the study and understands that enrollment may close before he hasbeen stable for 60 days on a different anti-depressant. Zoloft is an acceptable medication. Pharmacyhas been updated. Please write specific instructions on this switch. WORK SUPERVISOR documented in this encounter Plan of Treatment Not on filedocumented as of this encounter Visit Diagnoses Not on filedocumented in this encounter Care Teams Oyster Worker Relationship Specialty Start Date End Date Lurdes Thomas MD PCP - General 06/18/14 12/11/19 documented as of this encounter
--- OUTSIDE RECORDS SUMMARY | 2021-12-28 12:13 | XMS_ITS | Encounter Summary ---
:1955 Author Organization [employer] Address [address], [place] [address] Care Team Providers Name Role Phone Lurdes Thomas MD Primary Care Provider Reason for Visit Reason Comments No Show Encounter Details Date Type Department Care Team Description 03/03/2015 Telephone [place] Shawnee Hilario, RN No Show [address] [place] [address] Social History Tobacco Use Types Packs/Day Years Used Date Smoking Tobacco: Never Smokeless Tobacco: Never Alcohol Use Standard Drinks/Week Comments Yes 0 (1 standard drink = 0.6 oz pure alcoho l) Sex Assigned at Date Recorded Not on file documented as of this encounter Nursing Notes Shawnee Hilario, RN - 03/03/2015 12:52 PM CDT Attempted another call, left voicemail that he had missed his 6 month post DBS appointments today and to call main desk to reschedule. Shawnee Hilario, RN - 03/03/2015 10:59 AM CDT Attempted call to patient and was unable to reach, call to to see if patient was coming to the appointment today as it is 30 minutes past appointment time. She was under the impression that the appointment had been cancelled. She gave me the number of his new cell phone and asked that I call and leave him a message. I called [phone] and it sounded like someone answered but no voice heard. Iwill try later. documented in this encounter Plan of Treatment Not on filedocumented as of this encounter Visit Diagnoses Not on filedocumented in this encounter Care Teams Reel Repairer Relationship Specialty Start Date End Date Lurdes Thomas MD PCP - General 06/18/14 12/11/19 documented as of this encounter
--- OUTSIDE RECORDS SUMMARY | 2021-12-28 12:13 | XMS_ITS | Encounter Summary ---
:1955 Author [facility] Address [address] [address] Care Team Providers Name Role Phone Lurdes Thomas MD Primary Care Provider Reason for Visit Reason Comments Spine Lumbar Encounter Details Date Type Department Care Team Description 06/10/2015 Office Visit [place] [facility] Chris Cain, Right -sided low back Therapy Aurora Briggs, PT pain with right-sided [address] granados (Primary Dx) [place] [address] [place], [place] [phone] (Wo rk) Social History Tobacco Use Types Packs/Day Years Used Date Smoking Tobacco: Never Smokeless Tobacco: Never Alcohol Use Standard Drinks/Week Comments Yes 0 (1 standard drink = 0.6 oz pure alcoho l) Sex Assigned at Date Recorded Not on file documented as of this encounter Progress Notes Aurora Hickey, PT - 06/23/2015 2:04 PM CST Encounter date: 06/10/2015 Pt : 1955 [facility] Physical Therapy Progress Note Visit Number: 7 Initial Certification Period: 05/19/2015 to 08/17/15 Referring Provider: Dr. Maria Esther Phan Visit Diagnosis/ICD: Diagnosis ICD-10-CM ICD-9-CM 1. Right-sided low back pain with right-sided sciatica M54.41 724.3 Precautions: none Onset/Referral Date: 05/19/2015 Orders: Evaluate and treat. [facility] Services: Programming RN, Social Work, therapy in the past Exacerbation Date: 04/21/2015 Last Referring MD Visit: 05/19/2015 SUBJECTIVE: Andrew reports symptoms are less with sit tostand, but still present. Has been compliant with ex. Lastnight/day, when he was completely pain free OBJECTIVE Current Objective Findings: OSW score 22, initial score 40 shifted right dystonia throughout limbs with his Parkinsons, however, he reports his Parkinsons is significantly managed with the use of his bilateral brain stimulator Treatment/Education Today: time spent with above OBJ info and- therapeutic ex (CPT 08933)12 min hip series of stretches to combine some of the exercises he has been doing reviewed flexion in step standing, left, than right. He still gets a little glitch on right side side glide left single leg raise in hands/knees position, 5 sec hold manual therapy (CPT 81943) 10 min In left sanchez position, MET to low T and lumbar spine ultrasound (CPT 57348) 11 min US to right LB for 10 min, 1.3 w/cm2, continuous manual therapy (CPT 93040) 12 min soft tissue mobilization use of manager activities tool to T and lumbar parsspinals Timed Code Treatment Minutes: 45 Total Treatment Minutes: 45 Current Home Exercise Program List: hip series of streteching, cat camel, hand knee rock, body mechanics, side glides left, and SB with prayer stretch double knees up/down, and side/side for ab work added flexion in step standing H/K's single leg raise ASSESSMENT/PROGRESS TOWARD GOALS: improvement after therapy with [...] 90 day(s). Improving, feels at least a 50% improvement Plan: will continue to see for manual therapy, exercise progression, modalities if needed. EMATICS ACADEMIC CHAIR documented in this encounter Plan of Treatment Not on filedocumented as of this encounter Visit Diagnoses Diagnosis Right-sided low back pain with right-beck ed sciatica (HRC) - Primary documented in this encounter Care Teams Emissions Engineer Relationship Specialty Start Date End Date Lurdes Thomas MD PCP - General 06/18/14 12/11/19 documented as of this encounter
--- OUTSIDE RECORDS SUMMARY | 2021-12-28 12:13 | XMS_ITS | Encounter Summary ---
:1955 Author Organization [facility] Address [address] [address] Care Team Providers Name Role Phone Lurdes Thomas MD Primary Care Provider Reason for Visit Reason Comments Spine Lumbar Encounter Details Date Type Department Care Team Description 06/23/2015 Office Visit [facility] Chris Cain, Right -sided low back Therapy Aurora Briggs, PT pain with right-sided [address] granados (Primary Dx) [place] [address] [place], [place] [phone] (Wo rk) Social History Tobacco Use Types Packs/Day Years Used Date Smoking Tobacco: Never Smokeless Tobacco: Never Alcohol Use Standard Drinks/Week Comments Yes 0 (1 standard drink = 0.6 oz pure alcoho l) Sex Assigned at Date Recorded Not on file documented as of this encounter Progress Notes Aurora Hickey, PT - 06/23/2015 2:00 PM CST Encounter date: 06/23/2015 Pt : 1955 J[facility] Physical Therapy Progress Note Visit Number: 10 Initial Certification Period: 05/19/2015 to 08/17/15 Referring Provider: Dr. Maria Esther Phan Visit Diagnosis/ICD: Diagnosis ICD-10-CM ICD-9-CM 1. Right-sided low back pain with right-sided sciatica M54.41 724.3 Precautions: none Onset/Referral Date: 05/19/2015 Orders: Evaluate and treat. [facility] Services: Programming RN, Social Work, therapy in the past Exacerbation Date: 04/21/2015 Last Referring MD Visit: 05/19/2015 SUBJECTIVE: Andrew continues to feel much less symptoms with sit to stand, Has been compliant with ex. He has somedays now, without symptoms. OBJECTIVE Current Objective Findings: OSW score 18, initial score 40 shifted right dystonia throughout limbs with his Parkinsons, however, he reports his Parkinsons is significantly managed with the use of his bilateral brain stimulator, but we are also wondering if the stimulator isaffecting the T and L paraspinal muscle on the right sit to stand today no pain. FB shifts, and 1/2 way through has significant grab of muscle on the right, upper lumbar segement (-) slump (-) SLR Treatment/Education Today: time spent with above OBJ info and- therapeutic ex (CPT 22311)10 min reviewed flexion in step standing, left, than right. He still gets a little glitch on right side - in 1/2 sitting, hip hiking right for QL. He reports feeling an excellent stretch with this, no pain. ultrasound (CPT 24806) 12 min US to right LB for 10 min, 1.3 w/cm2, continuous manual therapy (CPT 57033) 15 min soft tissue mobilization, and use of floor coverings installer tool to T and lumbar paraspinals Timed Code Treatment Minutes: 37 Total Treatment Minutes: 37 Current Home Exercise Program List: hip series of stretching, cat camel, hand knee rock, body mechanics, side glides left, and SB with prayer stretch double knees up/down, and side/side for ab work flexion in step standing H/K's single leg raise seated hip hiking ASSESSMENT/PROGRESS TOWARD GOALS: improvement after therapy with less symptoms. no pain with transitional movement after therapy, muchimproved after last session. most symptoms with FB in standing Functional Goals/Outcomes: Patient/Carepartner to verbalize understanding of [...] progression, modalities if needed. Advised to schedule 1-2 more sessions. He has not contacted his insurance company yet OGRAPHIC TECHNOLOGIST documented in this encounter Plan of Treatment Not on filedocumented as of this encounter Visit Diagnoses Diagnosis Right-sided low back pain with right-beck ed sciatica (HRC) - Primary documented in this encounter Care Teams Unloader Operator Relationship Specialty Start Date End Date Lurdes Thomas MD PCP - General 06/18/14 12/11/19 documented as of this encounter
--- OUTSIDE RECORDS SUMMARY | 2021-12-28 12:13 | XMS_ITS | Encounter Summary ---
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 He reports that he quit his job due to the stress and workplace environment. 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 This can be done at home without the pressure and manual labor needed for his old job. He presents today with questions about applying for Social Security Disability; provided handout with information and resources. Discussed symptoms that limithis ability to work including, difficulty with fine motor, balance, slowed thought processing and problems multi-tasking and slurred, soft speech at times. He is aware that he can still work a limited a mount even on disability and has plans to do so. Discussed how he was coping with the changes. He believes the decrease in stress has helped him. He and his are doing better in the their relationship (they ended couples counseling because thingsare good). He plans to exercise more and is spending time with his grandsons. He will meet with physical therapy following this appointment to work on getting a good exercise routine. Encouraged client to attend the young-onset parkinson's support group to meet others who have made similar decisions about work- see how they are coping. He was open to this. Pt verbalized understanding and appreciation. Contact information provided for future concerns or questions. ING DEVELOPMENT SPECIALIST documented in this encounter Plan of Treatment Not on filedocumented as of this encounter Visit Diagnoses Diagnosis Parkinson's disease (HRC) - Primary documented in this encounter Care Teams Finisher Special Stocks Relationship Specialty Start Date End Date Lurdes Thomas MD PCP - General 06/18/14 12/11/19 documented as of this encounter
--- OUTSIDE RECORDS SUMMARY | 2021-12-28 12:13 | XMS_ITS | Encounter Summary ---
:1955 [facility] Address [address] [place] [address] Care Team Providers Name Role Phone Lurdes Thomas MD Primary Care Provider Encounter Details Date Type Department Care Team Description 05/09/2018 Telephone [facility] Princess Phan, [place] [facility] [address] [place] [address] [place], [place] [address] (Wo rk) Social History Tobacco Use Types Packs/Day Years Used Date Smoking Tobacco: Never Smokeless Tobacco: Never Alcohol Use Standard Drinks/Week Comments Yes 0 (1 standard drink = 0.6 oz pure alcoho l) Sex Assigned at Date Recorded Not on file documented as of this encounter Nursing Notes Garret Soto, RN - 05/09/2018 11:24 AM CST Called and clarified Rx (typo corrected for patient taking TID at 8:30a-1:30p-7p). No further action. Garret Soto RN 05/09/2018, 11:26 AM Maria Esther Barone MD - 05/09/2018 11:18 AM CST francisca Combs please call and find out what this is about? Nadia Bazan - 05/09/2018 9:19 AM CST CA took a call from [facility] script stating-- need to clarify medication Rytary [id number] caps. Please advise. Nadia Persaud 05/09/2018, 9:20 AM E TRAINER documented in this encounter Plan of Treatment Not on filedocumented as of this encounter Visit Diagnoses Not on filedocumented in this encounter Care Teams Wood Grinder Relationship Specialty Start Date End Date Lurdes Thomas MD PCP - General 06/18/14 12/11/19 documented as of this encounter
--- OUTSIDE RECORDS SUMMARY | 2021-12-28 12:13 | XMS_ITS | Encounter Summary ---
:1955 Author Organization [facility] Address [address] [place] [address] Care Team Providers Name Role Phone Lurdes Thomas MD Primary Care Provider Reason for Visit Reason Comments Prior Authorization Request Encounter Details Date Type Department Care Team Description 08/03/2018 Telephone [email or web address] Esther Walker [facility] MD Prem Request Neurology [address] [facility] [address] [facility] [place] [address] [place], [place] [phone] Social History Tobacco Use Types Packs/Day Years Used Date Smoking Tobacco: Never Smokeless Tobacco: Never Alcohol Use Standard Drinks/Week Comments Yes 0 (1 standard drink = 0.6 oz pure alcoho l) Sex Assigned at Date Recorded Not on file documented as of this encounter Nursing Notes Sylvia Burgess - 08/16/2018 7:03 AM CDT Rec'd fx from pharmacy- FYI Amantadine HCl ER (GOCOVRI) 137 MG CP24 filled and will ship UPS/FED EX to arrive at patients home 08/15/18 Fax placed in providers right fax folder Sylvia Burgess 08/16/2018, 7:03 AM Maria Esther Phan MD - 08/03/2018 1:23 PM CDT I do not have an account with them. Jeannette, do I need one? Is this something that can be taken careof through nursing? Jeannette Michael - 08/03/2018 8:20 AM CDT Received fax stating Pt needs a PA for the Gocovri 137 MG er Capsules . Please go to covermymeds and enter yap: [id number] Jeannette Michael 08/03/2018, 8:22 AM documented in this encounter Plan of Treatment Not on filedocumented as of this encounter Visit Diagnoses Not on filedocumented in this encounter Care Teams Travel Guide Relationship Specialty Start Date End Date Lurdes Thomas MD PCP - General 06/18/14 12/11/19 documented as of this encounter
--- OUTSIDE RECORDS SUMMARY | 2021-12-28 12:13 | XMS_ITS | Encounter Summary ---
:1955 Author Organization [employer] Address [address], [place] [address] Care Team Providers Name Role Phone Lurdes Thomas MD Primary Care Provider Reason for Visit Reason Comments Back Pain Encounter Details Date Type Department Care Team Description 12/02/2014 Telephone [facility] Katalina Laughlin, PT Back Pain [address] [place] [address] [place], [place] [address] [place], [place] [phone] (Wo rk) Social History Tobacco Use Types Packs/Day Years Used Date Smoking Tobacco: Never Smokeless Tobacco: Never Alcohol Use Standard Drinks/Week Comments Yes 0 (1 standard drink = 0.6 oz pure alcoho l) Sex Assigned at Date Recorded Not on file documented as of this encounter Nursing Notes Katalina Laughlin, PT - 12/02/2014 12:53 PM CDT Received voice mail message from patient (November 28) stating he was continuing to have lower back painand was asking for potential referral information. When pt was seen for evaluation in October, this therapist had recommended follow- up appointments, so asked the front line to offer him an appt for today when here to see MD. Pt did not return phone call from front line so called pt directly at this time and spoke with him regarding his current issues. He stated he has seen a chiropractor and massage therapist for ongoing R sided LBP but this is persistent, and is his main concern. Has difficulty getting here to this clinic due to distance, as well as work schedule. Offered to transfer his care to [facility], which he prefers to do. Suggested scheduling PT visit there as soon as possible. Will send email to PT at [facility] to coordinate care. Katalina Laughlin PT Physical Therapist [place] License # [id number] documented in this encounter Plan of Treatment Not on filedocumented as of this encounter Visit Diagnoses Not on filedocumented in this encounter Care Teams Installation Coordinator Relationship Specialty Start Date End Date Lurdes Thomas MD PCP - General 06/18/14 12/11/19 documented as of this encounter
--- OUTSIDE RECORDS SUMMARY | 2021-12-28 12:13 | XMS_ITS | Encounter Summary ---
:1955 Author Organization [facility] Address [address] [place] [address] Care Team Providers Name Role Phone Lurdes Thomas MD Primary Care Provider Encounter Details Date Type Department Care Team Description 04/12/2019 Telephone [facility] Princess Phan, [facility] Neu[facility] [address] [place] [address] [place] [address] [phone] (Wo rk) Social History Tobacco Use Types Packs/Day Years Used Date Smoking Tobacco: Never Smokeless Tobacco: Never Alcohol Use Standard Drinks/Week Comments Yes 0 (1 standard drink = 0.6 oz pure alcoho l) Sex Assigned at Date Recorded Not on file documented as of this encounter Nursing Notes Abi Laughlin - 04/12/2019 2:19 PM CST Images from the original note were not included. CA received a fax notifying us that patient's medication Gocovri 137 mg capsules was filled through their pharmacy and would be shipped on 04/11/19 CA placed fax in Dr. Phan' folder as COURT Laughlin 04/12/2019, 2:20 PM RVISOR/PORT DIRECTOR documented in this encounter Plan of Treatment Not on filedocumented as of this encounter Visit Diagnoses Not on filedocumented in this encounter Care Teams Inspector Poising Relationship Specialty Start Date End Date Lurdes Thomas MD PCP - General 06/18/14 12/11/19 documented as of this encounter
--- OUTSIDE RECORDS SUMMARY | 2021-12-28 12:13 | XMS_ITS | Encounter Summary ---
:1955 Author Organization [facility] Address [address], [place] [address] Care Team Providers Name Role Phone Lurdes Thomas MD Primary Care Provider Reason for Visit Reason Comments Spine Lumbar Encounter Details Date Type Department Care Team Description 06/18/2015 Office Visit [place] [facility] Chris Cain, Right -sided low back Therapy Aurora Briggs, PT pain with right-sided [address] granados (Primary Dx) [place] [address] [place], [place] [phone] (Wo rk) Social History Tobacco Use Types Packs/Day Years Used Date Smoking Tobacco: Never Smokeless Tobacco: Never Alcohol Use Standard Drinks/Week Comments Yes 0 (1 standard drink = 0.6 oz pure alcoho l) Sex Assigned at Date Recorded Not on file documented as of this encounter Progress Notes Aurora Hickey, PT - 06/23/2015 2:02 PM CST Encounter date: 06/18/2015 Pt : 1955 Jasmine [facility] Physical Therapy Progress Note Visit Number: 9 Initial Certification Period: 05/19/2015 to 08/17/15 Referring Provider: Dr. Maria Esther Phan Visit Diagnosis/ICD: Diagnosis ICD-10-CM ICD-9-CM 1. Right-sided low back pain with right-sided sciatica M54.41 724.3 Precautions: none Onset/Referral Date: 05/19/2015 Orders: Evaluate and treat. [facility] Services: Programming RN, Social Work, therapy in the past Exacerbation Date: 04/21/2015 Last Referring MD Visit: 05/19/2015 SUBJECTIVE: Andrew reports feeling much less symptoms with sit tostand, Has been compliant with ex. He has some days now, without symptoms. OBJECTIVE Current Objective Findings: [...] above OBJ info and- therapeutic ex (CPT 91102)20 min side glides left reviewed flexion in step standing, left, than right. He still gets a little glitch on right side single leg raise in hands/knees position, 5 sec hold - in 1/2 sitting, hip hiking right for QL. He reports feeling an excellent stretch with this, no pain. ultrasound (CPT 32629) 11 min US to right LB for 10 min, 1.3 w/cm2, continuous manual therapy (CPT 04086) 12 min soft tissue mobilization, and use of kindergarten teacher assistant tool to T and lumbar paraspinals Timed Code Treatment Minutes: 43 Total Treatment [...] progression, modalities if needed. Advised to schedule 2-3 more sessions. He is also going to contact his insurance regarding continuing therapy beyondinitial 6 that are set up CITOR PATENT documented in this encounter Plan of Treatment Not on filedocumented as of this encounter Visit Diagnoses Diagnosis Right-sided low back pain with right-beck ed sciatica (HRC) - Primary documented in this encounter Care Teams Md Psychiatry Relationship Specialty Start Date End Date Lurdes Thomas MD PCP - General 06/18/14 12/11/19 documented as of this encounter
--- OUTSIDE RECORDS SUMMARY | 2021-12-28 12:13 | XMS_ITS | Encounter Summary ---
:1955 Author Organization [facility] Address [address] [address] Care Team Providers Name Role Phone Lurdes Thomas MD Primary Care Provider Reason for Visit Reason Comments Spine Lumbar Encounter Details Date Type Department Care Team Description 07/02/2015 Office Visit [place] [facility] Chris Cain, Right -sided low back Therapy Aurora Briggs, PT pain with right-sided [address] granados (Primary Dx) [place] [address] [place], [place] [phone] (Wo rk) Social History Tobacco Use Types Packs/Day Years Used Date Smoking Tobacco: Never Smokeless Tobacco: Never Alcohol Use Standard Drinks/Week Comments Yes 0 (1 standard drink = 0.6 oz pure alcoho l) Sex Assigned at Date Recorded Not on file documented as of this encounter Progress Notes Aurora Hickey, PT - 07/02/2015 11:56 AM CST Encounter date: 07/02/2015 Pt : 1955 Jasmine [facility] Physical Therapy Progress Note Visit Number: 12 Initial Certification Period: 05/19/2015 to 08/17/15 Referring Provider: Dr. Maria Esther Phan Visit Diagnosis/ICD: Diagnosis ICD-10-CM ICD-9-CM 1. Right-sided low back pain with right-sided sciatica M54.41 724.3 Precautions: none Onset/Referral Date: 05/19/2015 Orders: Evaluate and treat. [facility] Services: Programming RN, Social Work, therapy in the past Exacerbation Date: 04/21/2015 Last Referring MD Visit: 05/19/2015 SUBJECTIVE: Andrew continues to feel much less symptoms with sit to stand. He felt a big difference with changing his brain stimulator intensity, from a 2.5, to a 2.3 for his right body side. He did not feel any difference with needing to change medications. He had less, to no episodes of sharpness OBJECTIVE Current Objective Findings: OSW score 16, initial score 40 sit to stand with minimal pain today (-) slump (-) SLR hips cleared prone knee flexion (-) PA's to lumbar spine: less sensitive L4L5, and less in upper lumbar Treatment/Education Today: time spent with above OBJ info and- therapeutic ex (CPT 07321)20 min reviewed and practiced H/K's position cat camel and hand knee rock,and opp arm/leg raise ultrasound (CPT 10739) 10 min US to right LB for 10 min, 1.3 w/cm2, continuous manual therapy (CPT 45313) 15 min joint mobilization to lumbar spine gr 3 soft tissue mobilization, and use of home service consultant tool to T and lumbar paraspinals Afterwards [...] decreased intensity affects his medications as well ASSESSMENT/PROGRESS TOWARD GOALS: improvement after therapy with [...] 90 day(s). Improving, feels at least a 60%-75% improvement Plan: will continue to see for manual therapy, exercise progression, modalities if needed. Advised to schedule 1-2 more sessions.Then he will see his neurologist for his brain stimulator recheck CUTTER documented in this encounter Plan of Treatment Not on filedocumented as of this encounter Visit Diagnoses Diagnosis Right-sided low back pain with right-beck ed sciatica (HRC) - Primary documented in this encounter Care Teams Precision Lens Polisher Relationship Specialty Start Date End Date Lurdes Thomas MD PCP - General 06/18/14 12/11/19 documented as of this encounter
--- OUTSIDE RECORDS SUMMARY | 2021-12-28 12:13 | XMS_ITS | Encounter Summary ---
:1955 Author Organization [facility] Address [address] [address] Care Team Providers Name Role Phone Lurdes Thomas MD Primary Care Provider Reason for Visit Reason Comments Spine Lumbar Encounter Details Date Type Department Care Team Description 06/30/2015 Office Visit [place] [facility] Chris Cain, Right -sided low back Therapy Aurora Briggs, PT pain with right-sided [address] granados (Primary Dx) [place] [address] [place], [place] [phone] (Wo rk) Social History Tobacco Use Types Packs/Day Years Used Date Smoking Tobacco: Never Smokeless Tobacco: Never Alcohol Use Standard Drinks/Week Comments Yes 0 (1 standard drink = 0.6 oz pure alcoho l) Sex Assigned at Date Recorded Not on file documented as of this encounter Progress Notes Aurora Hickey, PT - 06/30/2015 11:02 AM CST Encounter date: 06/30/2015 Pt : 1955 Jasmine [facility] Physical Therapy Progress Note Visit Number: 11 Initial Certification Period: 05/19/2015 to 08/17/15 Referring Provider: Dr. Maria Esther Phan Visit Diagnosis/ICD: Diagnosis ICD-10-CM ICD-9-CM 1. Right-sided low back pain with right-sided sciatica M54.41 724.3 Precautions: none Onset/Referral Date: 05/19/2015 Orders: Evaluate and treat. [facility] Services: Programming RN, Social Work, therapy in the past Exacerbation Date: 04/21/2015 Last Referring MD Visit: 05/19/2015 SUBJECTIVE: Andrew continues to feel much less symptoms with sit to stand, Has been compliant with ex. He has somedays now, without symptoms. He brought his brain stimulator in to see if changing the intensity changes his symptoms OBJECTIVE Current Objective Findings: OSW score 16, initial score 40 sit to stand with minimal pain today FB shifts, and 1/2 way through has significant grab of muscle on the right, upper lumbar segement (-) slump (-) SLR hips cleared prone knee flexion (-) PA's to lumbar spine: very sensitive L4L5, and less in upper lumbar Treatment/Education Today: time spent with above OBJ info and- therapeutic ex (CPT 62922)20 min reviewed flexion in step standing, left, than right. He still gets a little glitch on right side. with right leg up, he has no symptoms. - in 1/2 sitting, hip hiking right for QL. He reports feeling an excellent stretch with this, no pain. With the brain stimulator, Andrew adjusted the left side brain stimulator intensity (to affect right side of body) from 2.5, to 2.3, which is the lowest setting, he states. He then walked around the dept, and was still able to be safe with walking, without any increase in dyskinesiia, he reported. palpating the paraspinals, he has some less tone in the muscle as previous, and he tolerates increase PA pressure on spinal segments ultrasound (CPT 70298) 12 min US to right LB for 10 min, 1.3 w/cm2, continuous manual therapy (CPT 18459) 15 min joint mobilization to lumbar spine gr 3 soft tissue mobilization, and use of warp tension tester tool to T and lumbar paraspinals Afterwards transition sit to stand painfree Timed Code Treatment Minutes: 47 Total Treatment Minutes: 47 Current Home Exercise Program List: hip series [...] last session. most symptoms with FB in standing. he may benefit from less intensity with the brain stimulator for the right side of his body , but he is also going to see if this affectshis medications as well. Functional Goals/Outcomes: Patient/Carepartner to verbalize understanding of [...] has not contacted his insurance company yet RAM ARCHITECT documented in this encounter Plan of Treatment Not on filedocumented as of this encounter Visit Diagnoses Diagnosis Right-sided low back pain with right-beck ed sciatica (HRC) - Primary documented in this encounter Care Teams Cigar Roller Relationship Specialty Start Date End Date Lurdes Thomas MD PCP - General 06/18/14 12/11/19 documented as of this encounter
--- OUTSIDE RECORDS SUMMARY | 2021-12-28 12:13 | XMS_ITS | Encounter Summary ---
:1955 Author Organization [facility] Address [address] [place] [address] Care Team Providers Name Role Phone Lurdes Thomas MD Primary Care Provider Reason for Referral Specialty Diagnoses / Procedures Referred By Contact Refer red To Contact Maria Esther Phan MD [address] [place], [place] [address] Referral ID Status Reason Start Date Expiration Date Visits Requ ested Visits Authorized Reason for Visit Reason Comments Device Check Encounter Details Date Type Department Care Team Description 12/09/2014 Nursing Visit [facility] Doris Arauz, PD (Parkinson's disease) (Pr imary Dx); [address] [place] [address] Social History Tobacco Use Types Packs/Day Years Used Date Smoking Tobacco: Never Smokeless Tobacco: Never Alcohol Use Standard Drinks/Week Comments Yes 0 (1 standard drink = 0.6 oz pure alcoho l) Sex Assigned at Date Recorded Not on file documented as of this encounter Progress Notes Doris Arauz RN - 12/09/2014 5:19 PM CDT Deep Brain Stimulation (DBS) Programming Note: HPI: Andrew Pang is a 59 y.o. with bilateral STN DBS implantation. Surgeon: Dr. Gonzalez Rowland Surgery date/location: [facility] 09/09/14 Battery replacement: None Device type: Activia PC (battery on right side) Indication: Parkinson's Disease Update since last visit: Andrew saw Dr. Phan last week for an office visit and he was to discontinue his Neupro patch. Andrew did this and the next day he felt wonderful. He was having less dyskinesia which helped his back pain. He also states his mind was calmer and others notice this as well. After a few days, he states she was freezing and had to concentrate more on his gait. He did increase his stimulation by 0.1v on each side, but states he did not notice any improvement. Initial settings: Battery: 3.02v on 100% of time Left STN: 0 Negative, Case Positive, Amp: 2.3, PW: 60, Rate: 150. No problems found on impedence check at 3.0v. Therapy impedence: 1469/1.587 Right STN: 9 Negative, 10 Positive, Amp: 2.2, PW: 60, Rate: 150. No problems found on impedence check at 3.0v. Therapy impedence: 1122/1.964 Increased amplitude on both side by 0.2v (L STN: 2.5, R STN: 2.4). He had less initial freezing and was moving faster and with out his walking stick. Tried to increase Rate on both sides but he had some facial pulling of the right side of his mouth and felt some tingling when PW was increased to 70 Tried to increase Right STN up to 2.5 , but he had some jaw dyskinesia. Final settings: Left STN: 0 Negative, Case Positive, Amp: 2.5, PW: 60, Rate: 150. Pt web programmer range: 2.1-2.7 Right SNT: 9 Negative, 10 Positive, Amp: 2.4, PW: 60, Rate: 150. Pt web programmer range: 2.0-2.6 Total face to face programming time: 30 min Follow up03/03/15 for 6 month follow-up visit. Supervising provider: DO Doris York, RN documented in this encounter Plan of Treatment Scheduled Referrals Name Type Priority Associated Diagnoses Order S chedule DBS PROGRAMMING CONSULT Referral Routine Paralysis agitans (HRC) Ordered: 12/11/2014, (AMB) Expires: 2014 documented as of this encounter Visit Diagnoses Diagnosis PD (Parkinson's disease) (HRC) - Primary Paralysis agitans Paralysis agitans (HRC) Paralysis agitans documented in this encounter Care Teams Technical Support Engineer Relationship Specialty Start Date End Date Lurdes Thomas MD PCP - General 06/18/14 12/11/19 documented as of this encounter
--- OUTSIDE RECORDS SUMMARY | 2021-12-28 12:13 | XMS_ITS | Encounter Summary ---
:1955 Author Organization [facility] Address [address] [place] [address] Care Team Providers Name Role Phone Lurdes Thomas MD Primary Care Provider Reason for Visit Reason Comments Prior Authorization Request Encounter Details Date Type Department Care Team Description 09/11/2018 Telephone [employer] Maria Esther Phan [facility] MD Prem Request Neurology [address] [facility] [address] [facility] [place] [address] [place], [place] [phone] [address] Social History Tobacco Use Types Packs/Day Years Used Date Smoking Tobacco: Never Smokeless Tobacco: Never Alcohol Use Standard Drinks/Week Comments Yes 0 (1 standard drink = 0.6 oz pure alcoho l) Sex Assigned at Date Recorded Not on file documented as of this encounter Nursing Notes Maria Esther Phan MD - 09/13/2018 5:33 PM CDT Talked to patient and his and informed them of approval. His last dose would be Monday night,so I am sending a small supply of regular amantadine to the local pharmacy in case the Gocovri supply does not arrive on time from the specialty pharmacy. Doris Arauz RN - 09/13/2018 5:27 PM CDT Spoke with [facility] [employer] and completed PA over the phone. PA was approved from 08/14/18 to 09/13/19. PA#[id number] Called [employer] and told them PA was approved. They will expedite shipping and get to pt by Monday. Copy of PA approval sent to [facility]. Abi Laughlin - 09/13/2018 4:41 PM CDT Patient's spouse called regarding below message She can be contacted at [phone] - spouse's number or her own number [phone] Abi Laughlin 09/13/2018, 4:42 PM Maria Esther Phan MD - 09/13/2018 3:46 PM CDT Jeannette, I went to the website, will not allow me to start an account as I apparently already have on, I asked for a password reset, and received no e-mail to reset. I called this agency ([facility] -whomever they might be) and they told me I have to create a new account. This is a very inefficient system and I do not know if this is because of the patient's insurance carrier, or a christopher service for , but I already spent 40 minutes trying to figure this out and am not getting very far. Canyou help coordinate this so this patient is not left without his medication? Thanks! Jeannette Dee - 09/13/2018 12:37 PM CDT Patient called requesting to get medication filled today if possible. States only 2 days left. Please call patient once filled. Thanks Jeannette Dee 09/13/2018, 12:38 PM Maria Esther Phan MD - 09/12/2018 12:09 PM CDT This website requests that I provide my e-mail, fax number, etc and create an account. Is this OK todo? Yenny Ray - 09/11/2018 4:47 PM CDT PA needed for Gocovri 137 mg ER capsules 1. Go to [employer] and click Enter a Ann 2. Enter the pt's Last name, and the Ann Ann: [id number] Pt's Last name: Poly : 1955 3. Complete th form and click: Send to Plan for approval documented in this encounter Plan of Treatment Not on filedocumented as of this encounter Visit Diagnoses Not on filedocumented in this encounter Care Teams Stonecutter Hand Relationship Specialty Start Date End Date Lurdes Thomas MD PCP - General 06/18/14 12/11/19 documented as of this encounter
--- OUTSIDE RECORDS SUMMARY | 2021-12-28 12:13 | XMS_ITS | Encounter Summary ---
:1955 Author Organization [employer] Address [address] [place] [address] Care Team Providers Name Role Phone Lurdes Thomas MD Primary Care Provider Reason for Visit Reason Comments Follow-up Back Pain Encounter Details Date Type Department Care Team Description 05/19/2015 Office Visit [facility] Maria Esther Phan PD (Parkinson's disease) (Pr imary Dx); [address] MD Right-sided low back pain with right-beck ed sciatica Drive [address] [place], [place] S [address] [place], [place] [phone] (Wo rk) Social History Tobacco Use Types Packs/Day Years Used Date Smoking Tobacco: Never Smokeless Tobacco: Never Alcohol Use Standard Drinks/Week Comments Yes 0 (1 standard drink = 0.6 oz pure alcoho l) Sex Assigned at Date Recorded Not on file documented as of this encounter Last Filed Vital Signs Vital Sign Reading Time Taken Comments Blood Pressure 122/78 05/19/2015 8:29 AM 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 Pulse 76 05/19/2015 8:29 AM 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 Temperature - - Respiratory Rate - - Oxygen Saturation - - Inhaled Oxygen Concentration - - Weight 90.6 kg (199 lb 12.8 oz) 05/19/2015 8:24 AM 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 Height - - Body Mass Index 26.37 07/08/2014 8:56 AM 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 documented in this encounter Progress Notes Maria Esther Phan MD - 05/19/2015 8:52 AM CST Dictated 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 documented in this encounter Plan of Treatment Not on filedocumented as of this encounter Visit Diagnoses Diagnosis PD (Parkinson's disease) (HRC) - Primary Paralysis agitans Right-sided low back pain with right-beck ed sciatica (HRC) documented in this encounter Care Teams Pre Kindergarten Teacher Relationship Specialty Start Date End Date Lurdes Thomas MD PCP - General 06/18/14 12/11/19 documented as of this encounter
--- OUTSIDE RECORDS SUMMARY | 2021-12-28 12:13 | XMS_ITS | Encounter Summary ---
:1955 Author Organization [facility] Address [address], [place] [address] Care Team Providers Name Role Phone Lurdes Thomas MD Primary Care Provider Reason for Visit Reason Comments Refill Encounter Details Date Type Department Care Team Description 07/31/2018 Telephone [facility] Shawnee Hilario, RN Refill [address] [place] [address] Social History Tobacco Use Types Packs/Day Years Used Date Smoking Tobacco: Never Smokeless Tobacco: Never Alcohol Use Standard Drinks/Week Comments Yes 0 (1 standard drink = 0.6 oz pure alcoho l) Sex Assigned at Date Recorded Not on file documented as of this encounter Nursing Notes Jeannette Porras RN - 08/02/2018 11:45 AM CDT Filled 07/31/[address] Phan. Jeannette Porras RN Shawnee Hilario RN - 07/31/2018 10:11 AM CDT [facility] calling for refill on GoCovri. To be faxed to [phone]. [facility] not [facility]. Please take care of. documented in this encounter Plan of Treatment Not on filedocumented as of this encounter Visit Diagnoses Not on filedocumented in this encounter Care Teams Jewel Lathe Operator Relationship Specialty Start Date End Date Serum, Lurdes C, MD PCP - General 06/18/14 12/11/19 documented as of this encounter
--- OUTSIDE RECORDS SUMMARY | 2021-12-28 12:13 | XMS_ITS | Encounter Summary ---
:1955 Author Organization [facility] Address [address] [place] [address] Care Team Providers Name Role Phone Lurdes Thomas MD Primary Care Provider Reason for Referral Specialty Diagnoses / Procedures Referred By Contact Refer red To Contact Maria Esther Phan MD [address] [place], [place] [address] Referral ID Status Reason Start Date Expiration Date Visits Requ ested Visits Authorized S FORECAST ANALYST Reason for Visit Reason Comments Device Check Encounter Details Date Type Department Care Team Description 05/19/2015 Nursing Visit [facility] Shawnee Hilario, PD (Parkinson's [address] disease) [place] [address] Social History Tobacco Use Types Packs/Day Years Used Date Smoking Tobacco: Never Smokeless Tobacco: Never Alcohol Use Standard Drinks/Week Comments Yes 0 (1 standard drink = 0.6 oz pure alcoho l) Sex Assigned at Date Recorded Not on file documented as of this encounter Progress Notes Shawnee Hilario, RN - 05/19/2015 4:17 PM CST Deep Brain Stimulation (DBS) Programming Note: HPI: Andrew Pang is a 60 y.o. with bilateral STN DBS implantation. Surgeon:Dr. Gonzalez Rowland Surgery date/location: 09/09/24 [place] Battery replacement: None Device type: Activa PC Indication: Parkinson's Disease Update since last visit: States he is doing really well except for some off time in the morning and some dyskinesia. He is going to enroll in a study using Amantadine controlled release. He feels his speech is somewhat worse however during our visit I found his speech easier to understand than before,less stuttering. He missed his 6 month visit so I did check Vargas Depression Index 10 compared to 15 pre DBS ADL 13 compared to 20 pre DBS MOCA- 29/30- unchanged from pre DBS. Total Levodopa IR 100-200 ( compared to 200-300 pre DBS Total Levodopa CR-800 compared to 800-900 before DBS Weight is 199 lbs which is less than pre DBS but patient is trying to lose weight. No UPDRS motor on score was recorded by Dr. Phan Initial settings: Left STN 0 negative Case positive 2.6V PW 60 Rate 150. therapy impedence 1531 current 1.725ohms. No problems on electrode impedence. Right STN: 9 negative 10 positive 2.5V PW 60 Rate 150. Therapy impedence 1091 current 2.301ohms. No problems on electrode impedence check. Stimulation on 100% Battery voltage 2.98 We discussed indications of increasing stimulation and I tested to see if we got any side effects. On Left he was fine at 2.7 and 2.8 but 2.9 felt speech was a little worse. On right he felt good at 2.6 and up to 2.8 but above that he had some tightness in his throat. Final settings: No changes to stimulation at this point I readjusted his range on patient pl sql programmer. Patient pl sql programmer range Left 2.4-2.8 Right 2.3-2.7 Total face to face programming time: 50 minutes Follow up: 6 months Supervising provider: Dr. Maria Esther Hilario, RN S FORECAST ANALYST documented in this encounter Plan of Treatment Scheduled Referrals Name Type Priority Associated Diagnoses Order S chedule DBS PROGRAMMING CONSULT Referral Routine PD (Parkinson's O rdered: 05/19/2015, (AMB) disease) ([facility]) Expires: 04/22 documented as of this encounter Visit Diagnoses Diagnosis PD (Parkinson's disease) ([facility]) Paralysis agitans documented in this encounter Care Teams Magnesium Mill Operator Relationship Specialty Start Date End Date Lurdes Thomas MD PCP - General 06/18/14 12/11/19 documented as of this encounter
--- OUTSIDE RECORDS SUMMARY | 2021-12-28 12:13 | XMS_ITS | Encounter Summary ---
:1955 Author Organization [employer] Address [address], [place] [address] Care Team Providers Name Role Phone Lurdes Thomas MD Primary Care Provider Reason for Visit Reason Comments Social Service Encounter Details Date Type Department Care Team Description 01/20/2015 Telephone [facility] Fabi Quinones LISW Social Service [address] [place], [place] [address] Social History Tobacco Use Types Packs/Day Years Used Date Smoking Tobacco: Never Smokeless Tobacco: Never Alcohol Use Standard Drinks/Week Comments Yes 0 (1 standard drink = 0.6 oz pure alcoho l) Sex Assigned at Date Recorded Not on file documented as of this encounter Nursing Notes Fabi Beverly LISW - 01/20/2015 10:10 AM CDT Scheduled phone meeting with patient and his . Andrew reports that he has quit his job due to the stress making his symptoms worse. They call today to learn more about applying for Social Security Disability. Andrew's primary struggles have to do with balance issues, freezing, rigidity, anxiety and fatigue. 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 Discussed the process in general and provided resources. He and his will discuss the best option for them. Andrew has an appointment with Dr Phan in a few weeks. He will discuss with him at the appointment; he can also stop and visit this SW if needed. Pt verbalized understanding and appreciation. Contact information provided for future concerns or questions. documented in this encounter Plan of Treatment Not on filedocumented as of this encounter Visit Diagnoses Not on filedocumented in this encounter Care Teams Brass Pourer Relationship Specialty Start Date End Date Lurdes Thomas MD PCP - General 06/18/14 12/11/19 documented as of this encounter
--- OUTSIDE RECORDS SUMMARY | 2021-12-28 12:13 | XMS_ITS | Encounter Summary ---
:1955 Author Organization [employer] Address [address], [place] [address] Care Team Providers Name Role Phone Lurdes Thomas MD Primary Care Provider Reason for Referral Consult/Transfer Care (Routine) - Closed Specialty Diagnoses / Procedures Referred By Contact Refer red To Contact Diagnoses Parkinson's disease (HRC) Maria Esther Phan MD [address] [place], [place] [address] Referral ID Status Reason Start Date Expiration Date Visits Requ ested Visits Authorized [id number] Closed 08/08/2017 11/07/2018 1 1 Scheduling Instructions Your provider has recommended an appoint ment with [facility]. You may call [phone] or marino bardales [phone] to schedule your appointment. If you do not schedule an a ppointment within the next 1 to 3 business days, we will call you to help arrange y our appointment. We suggest you call your health insurance company about your cove rage and benefits for this appointment. Reason for Visit Reason Comments Follow-up Medication Questions Gocovri Sleep problems Wakes up at 3am Encounter Details Date Type Department Care Team Description 08/08/2017 Office Visit [facility] Maria Esther Phan Parkinson's disease [address] MD ([facility]) (Primary Dx) Drive [address] [facility] [address] [place], [place] [phone] (Wo rk) Social History Tobacco Use Types Packs/Day Years Used Date Smoking Tobacco: Never Smokeless Tobacco: Never Alcohol Use Standard Drinks/Week Comments Yes 0 (1 standard drink = 0.6 oz pure alcoho l) Sex Assigned at Date Recorded Not on file documented as of this encounter Last Filed Vital Signs Vital Sign Reading Time Taken Comments Blood Pressure 126/79 08/08/2017 4:30 PM CDT Pulse 92 08/08/2017 4:30 PM CDT Temperature - - Respiratory Rate - - Oxygen Saturation - - Inhaled Oxygen Concentration - - Weight 85.9 kg (189 lb 6.4 oz) 08/08/2017 4:26 PM CDT Height - - Body Mass Index 24.99 07/08/2014 8:56 AM 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 - Use a system to ensure you take your pills on time. - Make sure to take your PD pills with you when you leave home. -There are applications for smart-phones and tablets that can assist with med reminders, such as [employer], that allows you to program times and different reminders. documented in this encounter Progress Notes Maria Esther Phan MD - 08/08/2017 12:00 PM CDT NAME: DEIDRE PANG MR#: [id number] CSN: [id number] AUTHENTICATING CLINICIAN: Maria Esther Phan MD CONFIRM #: [id number] LOC: 62514 CLINIC PROGRESS NOTE DATE OF VISIT: 08/08/2017 : 1955 LOCATION: [place]. HISTORY OF PRESENT ILLNESS: Mr. Pang is a 62-year-old gentleman with a 10-year history of Parkinson's disease, who was seen today in followup of that. He is accompanied by his . He reports that he has been doing reasonably well since the last time I saw him. He is status post bilateral subthalamic nucleus stimulation in August 2014. We interrogated his stimulator today and the battery looks good. He reports that he takesRytary 250 mg capsule 3 times a day or sometimes even 2 times a day. When that happens, he is quite slow in the evening, and the next morning, he cannot move very well up and he does not sleep very well that night. However, he does that sometimes because of the dyskinesia which is very bothersome and interferes with his activities. He is now on disability and he has retired from his previous job and that has been helpful because he has been able to spend more time with regular exercise, as well as being more involved in social activities. The reduction of the stress has also been very important. Hehas not had any falls. He does have freezing of gait, which is quite significant when he wears off. He continues to have low back pain, which is problematic and he has seen an orthopedist for that. He takes rarely anti-inflammatories, but, for the most part, he just gets through with tolerating the pain. He has had previous workup for that, and surgery has been offered but has not been thought to be the best solution for him. He does have sleep apnea, which is controlled. He exercises about 5-6 hours per week. He denies any cognitive difficulties. He denies any depression or anxiety and he denies any hallucinations. He does have some dry skin and he gets restless when he wears off. He attends a support group. He is doing pretty well with his activities of daily living, being slow but mostly independent with pretty much every one of his activities of daily living. His activities of daily living score today is 12. I reviewed and updated the past medical and surgical histories, social and family history, current medications and allergies from the electronic health record. He is on amantadine for his dyskinesias, but that only offers him very brief reprieve. REVIEW OF SYSTEMS: A comprehensive review of systems was performed and was significant for what is mentioned above. Allothers are negative. PHYSICAL EXAMINATION: GENERAL: He is alert oriented and pleasant. He is of normal overall appearance. VITAL SIGNS: Blood pressure is 112/62 sitting, 126/79 standing. Heart rate 86 and regular, weight 189 pounds 6 ounces. NEURO: Mental status: Alert, oriented x3 with normal attention, concentration, language, memory, andfund of knowledge. Cranial nerves: Visual castillo full. Eye movements conjugate. Pupillary response symmetric. Funduscopic examination benign. Face movement and sensation, tongue and palate movement, shoulder shrug, and neck muscle strength normal and symmetric. Hearing slightly decreased but adequate for bedside testing. Somewhat decreased facial expression. Mild dysarthria and hypophonia. Motor: Normal muscle strengthand bulk in all 4 extremities. Mild rigidity. Deep tendon reflexes: Normal and symmetric without abnormal responses. Sensory: No deficits to light touch. Vibration somewhat decreased in the lower extremities distally.Coordination: No tremor seen today. Xunuik-bald-iqgxxe is adequate. There is iotf-os-njyonzef dyskinesia, more so on the left than the right. Gait, posture, and balance: He arises from a chair without difficulty but somewhat slowly. He has moderately scoliotic posture, and he walks with some dystonia,which appears to be peak-dose dystonia, but he has a negative pull test. IMPRESSION: 1.Parkinson's disease, stage III. 2.Dyskinesia due to Parkinson's disease. 3.Peak-dose dystonia. 4.Status post bilateral subthalamic nucleus deep brain stimulation surgery. DISCUSSION: We talked today about the management of his medications. I advised him to always take the 3 doses ofRytary a day. He has been trying to avoid that because of dyskinesias, but on the other hand, when he does that, he has a very rough night, and the next day, he has much harder time getting going in the morning. To see if we can control the dyskinesia better and in view of his insomnia, I think that we could try extended-release amantadine instead of the regular amantadine. That typically provides better area under the curve throughout the day and is out of his system by night. I think that might offer him much better control of the dyskinesias and allow him to tolerate the necessary dose of Rytarybetter. With regard to his deep brain stimulation, we interrogated the stimulators today and they appear to be fine. RECOMMENDATIONS: 1.Stop the amantadine. 2.Start Gocovri 137 mg, 2 capsules every night. 3.Continue with same dose of Rytary 245 mg 3 times a day. 4.Continue with regular exercise. 5.Total time of today's visit 25 minutes. Counseling time today's visit 15 minutes. 6.Follow up with me in 6 months' time, sooner if necessary. SAP:MEDQ C: CONFIRM #: [id number] documented in this encounter Plan of Treatment Scheduled Referrals Name Type Priority Associated Diagnoses Order S chedule DBS PROGRAMMING CONSULT Referral Routine Parkinson's disea se Ordered: 08/08/2017 (AMB) ([facility]) documented as of this encounter Visit Diagnoses Diagnosis Parkinson's disease (HRC) - Primary documented in this encounter Care Teams Manager Track Relationship Specialty Start Date End Date Lurdes Thomas MD PCP - General 06/18/14 12/11/19 documented as of this encounter
--- OUTSIDE RECORDS SUMMARY | 2021-12-28 12:14 | XMS_ITS | Encounter Summary ---
:1955 Author Organization [facility] Address [address] [place] [id number] Care Team Providers Name Role Phone Lurdes Thomas MD Primary Care Provider Reason for Referral Specialty Diagnoses / Procedures Referred By Contact Refer red To Contact Maria Esther Phan MD [address] [place], [place] [address] Referral ID Status Reason Start Date Expiration Date Visits Requ ested Visits Authorized Reason for Visit Reason Comments Adl Problem Encounter Details Date Type Department Care Team Description 11/04/2014 Initial Consult Darrin Moore-d efined conditions(799.89) (Primary Dx); Occupational Therapy Tylor Bates, OTR/L Paralysis agitans [address] [id number] [phone] Social History Tobacco Use Types Packs/Day Years Used Date Smoking Tobacco: Never Smokeless Tobacco: Never Alcohol Use Standard Drinks/Week Comments Yes 0 (1 standard drink = 0.6 oz pure alcoho l) Sex Assigned at Date Recorded Not on file documented as of this encounter Progress Notes Tylor Marr, OTR/L - 11/08/2014 1:51 PM CDT Encounter Date: 11/04/2014 Pt. : 1955 [facility] Occupational Therapy - Evaluation/Plan of Care Initial Certification Period: 11/04/2014 to 01/03/15 Referring Provider: Dr. Maria Esther Phan Referring Diagnosis: Parkinson's Disease Visit Diagnosis/IDC Code: Diagnosis (ICD9) ICD-9-CM ICD-10-CM 1. Other ill-defined conditions(799.89) 799.89 R69 2. Paralysis agitans ([facility]) 332.0 G20 Precautions: recent DBS surgery Orders: Evaluate and treat. Onset/Referral Date: 10/07/2014 SUBJECTIVE Reason for Visit: Patient presents to Occupational Therapy for: Outpatient Evaluation. Patient accompanied by : alone Client reports difficulty with bed mobility, car transfers,dressing Patient Therapy Goals: Dressing. Bed mobility. Transfers. Exercise program. Past Medical History: Past medical history, medication, and allergies were reviewed in the electronic medical record. Pertinent to therapy: Restless leg syndrome. bilateral DBS(09/2014). Previous Occupational Therapy: Received at [facility] [place]. Pain: Location: back pain when getting up rom chairs , gettign up from bed, getting in/out of car. Education: High school. 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 Living Environment: Private home, more than 1 level. Living Location: [facility]. Driving: Yes. Community Mobility: Independent community ambulation-unrestricted. Frequency of Outings: Leaves home on a daily basis. Community Resources: None/Unknown. Formal Exercises: Biking stationary. Bicycling outdoors. Leisure/Activities: biking, camping OBJECTIVE Observation: alert, motivated, cooperative, oriented , insightful Upper Extremity Function Hand Dominance: Right Range of Motion: Grossly within normal limits bilaterally. Bradykinesia: (UPDRS)(Combining slowness, hesitancy, decreased armswing, small amplitude and poverty of movement in general). -Left Upper Extremity: 2 = Mild degree of slowness and poverty of movement which is definitely abnormal. Alternatively, some reduced amplitude. -Right Upper Extremity: 0 = None. Strength: -Left upper extremity: within normal limits. -Right upper extremity: within normal limits. -Roll Inspector: Left - 127 lbs=99%; Right -128 lbs.=99% Dyskinesia (UPDRS): None observed in session. Tremor (UPDRS): reportedly controlled by DBS and medications. Other Observations: Edema: Right Lower Extremity. Dystonia: Area affected - None. Rigidity: Area affected - Not assessed. Other: Freezing. Details: not observed but reported; client states freezing is reduced since DBS Sensation: No problems reported. Lower Extremity Function Assistive Devices: None. Balance: no falls reported since DBS surgery in September this year. Endurance/Activity Tolerance: good Vision/Visual Perception: No concerns reported. Cognition: Appears intact. Safety Awareness: No problems observed. Behavioral Characteristics: Alert. Cooperative. Pleasant. Communication: Dysarthria. Rapid speech. Standardized Test Results: Activities of Daily Living: (UPDRS): Handwriting (Observed): 3=Severely affected, not all words are legible Cutting food (Self report): 0=Normal. Dressing (Self report): 2=Occasional assistance with buttoning, getting arms into sleeves. Dressing (Observed): 0=Normal. Turning in bed (Self report): 2=Can turn alone or adust sheets, but with great diffuculty. Turning in bed (Observed): 2=Can turn alone or adust sheets, but with great diffuculty. Falling (Self report): 1=Rare falls. Freezing when walking (Observed): 0=None. Walking (Observed): 1=Mild difficulty. May not swing arms or may tend to drag leg. Posture (Observed): 0=Normal-erect. Medication Management FIM scale (Self report): 7=Independent. Takes medication on time. Physical Performance Test (PPT): (Performance based assessment of seven ADL functions including writing, eating, dressing, UE reaching, balance, turning and walking. Percentile comparison with independent living senior, average age 79 years. 28 maximum score) Score 27/28 =above 95% Parkinson's Activity Scale (PAS): Before Instruction: Lying down in bed - 3-Difficulty with lifting legs, moving trunk and reaching adequate end position. Rolling onto side - 3=Difficulty with turning/shifting trunk or reaching adequate end position. Rising from bed - 3=Difficulty with moving legs or trunk or reaching adequate end position. After instruction in use of optimal body mechanics and adaptations client was able to demonstrate: Lying down in bed - 2-Difficulty with lifting legs, moving trunk or reaching adequate end position. Rolling onto side - 1=Difficulty with turning/shifting trunk or reaching adequate end position. Rising from bed - 1=Difficulty with moving legs or trunk or reaching adequate end position. Today's Intervention/Education Provided: --Evaluation. --Upper extremity strengthening/ROM exercise program to include neck, trunk and shoulder exercises to facilitater independence in ADL function. --Upper extremity strengthening/ROM exercise program to promote safety and independence in ADL function. --Fine motor exercise program to include dexterity exercise, therapy putty and functional activities, to promote independence in ADL function. --Compensatory strategies/adaptive equipment to facilitate independence and safety in bed transfers and ability to turn in bed and adust bedclothes using: satin draw sheet., bed rail., optimal body mechanics (bend knees, raise arm to roll onto side) and bed pole. --Compensatory strategies/adaptive equipment for increased handwriting legibility using: Write slower. -Provision of contact information for adaptive computer software and hardware to facilitate interfacing with computer. Resources Issued: Exercise handouts. Source material for adaptive equipment. Contact information for community resources (i.e. [place]). Response to Treatment: Demonstrated comprehension of strategies and equipment use. Verbalized receptivity to recommendations. ASSESSMENT Receptive to instruction and recommendations. Motivated to preserve/enhance function and wellness. Client was seen in May this year for pre DBS assessment, with recommendation for follow up session. He did not schedule follow up session, but did undergo successful DBS surgery. 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 H e presents to address continuing difficulty in bed mobility and dressing and learn home exercise program for dexterity , AROM and to combat hypokinesia. Significant Impairments: Decreased ADL performance. Bradykinesia. Endurance limited. ROM deficits. Back pain interfering with bed mobility, car transfers. Functional Limitations: Dressing upper body. Bed mobility. Bed transfers. Car transfer. Gait deficits. Handwriting. Work skills. Goals/Functional Outcomes: Patient/Care-partner to demonstrate improved safety and independence during transitional movements (sit to stand) for independent transfers to chair/sofa or car via optimal body mechanics/adaptive equipment in 60 days. Patient/Care-partner to verbalize/demonstrate improved technique to facilitate mobility for independence with safety turning in bed, adjusting bedclothes, and bed transfers via bed rail, satin sheet, optimal body mechanics and bed pole in 60 days. Patient/Care-partner to verbalize/demonstrate understanding of strategies and adaptations to environment to facilitate prevention of falls in 60 days. Patient/Care-partner to verbalize/demonstrate understanding of instruction for facilitating abilityto dress self for independence via compensatory methods and adaptations in 60 days. Patient/Care-partner to verbalize/demonstrate understanding of exercise program for improved independence in ADL's: fine motor, large amplitude upper body exercises and range of motion in 60 days. Possible Barriers to Goal Achievement or Learning: Distance from clinic. 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 Prognosis: Excellent for established goals. PLAN Planned Intervention/Education: Adaptive equipment recommendations. Compensatory ADLs. Education. Car transfers. Instruction in homeexercise program. Education in falls prevention. Interdisciplinary Referrals:None. Services Recommended: None at this time. Discharge Plan: Patient will be discharged from therapy when goals are achieved or patient plateaus in progress. Informed Consent: The patient was educated on the condition, planned therapy intervention and expectation from treatment. Goals were a collaborative effort of the therapist and patient caregiver. Risks, benefits and alternatives to treatment have been explained. Patient and/or family in agreement with care plan. Plan for Next Treatment: Transfers (chair/sofa). Dressing. Falls prevention. Instruction in home exercise program. Procedures: Occupation Therapy Evaluation (CPT 38489): 30 minutes ADL/Self management (CPT 83867): 15 minutes Therapeutic Exercise (CPT 87177): 15 minutes Total Treatment Time: 60 minutes. The computer aided design operator is completed by the therapist and the referring clinician's electronic signature certifies medical necessity for the plan above. Tylor Marr OTR/L Lic#[id number] documented in this encounter Plan of Treatment Scheduled Referrals Name Type Priority Associated Diagnoses Order S [facility] Occupational Therapy Referral Routine Paralysis agitans ([facility]) Ordered: 11/04/2014, Expires: 2014 documented as of this encounter Visit Diagnoses Diagnosis Other ill-defined conditions(799.89) - P rimary Other ill-defined conditions Paralysis agitans ([facility]) Paralysis agitans documented in this encounter Care Teams Preform Plate Maker Relationship Specialty Start Date End Date Lurdes Thomas MD PCP - General 06/18/14 12/11/19 documented as of this encounter
--- OUTSIDE RECORDS SUMMARY | 2021-12-28 12:14 | XMS_ITS | Encounter Summary ---
:1955 Author Organization [employer] Address [address] [place] [address] Care Team Providers Name Role Phone Lurdes Thomas MD Primary Care Provider Reason for Referral Specialty Diagnoses / Procedures Referred By Contact Refer red To Contact Maria Esther Phan MD [address] [place], [place] [address] Referral ID Status Reason Start Date Expiration Date Visits Requ ested Visits Authorized Reason for Visit Reason Comments Balance/gait Dysfunction Encounter Details Date Type Department Care Team Description 11/04/2014 Initial Consult [place] [facility] Katlaina Laughlin normality of gait (Primary Dx); Therapy L, PT Paralysis agitans; [address] [facility] [place] [phone] Social History Tobacco Use Types Packs/Day Years Used Date Smoking Tobacco: Never Smokeless Tobacco: Never Alcohol Use Standard Drinks/Week Comments Yes 0 (1 standard drink = 0.6 oz pure alcoho l) Sex Assigned at Date Recorded Not on file documented as of this encounter Progress Notes Katalina Laughlin, PT - 11/05/2014 8:33 AM CDT Visit Date: 11/04/2014 Patient : 1955 Physical Therapy Parkinson Evaluation/Plan of Care [facility] [place] Initial Certification Period: 11/04/2014 to 02/02/15 Referring Provider: Dr. Maria Esther Phan Visit Diagnosis/ICD: Diagnosis (ICD9) ICD-9-CM ICD-10-CM 1. Abnormality of gait 781.2 R26.9 2. Paralysis agitans ([facility]) 332.0 G20 3. Personal history of fall V15.88 Z91.81 Precautions: Fall precautions, DBS Onset/Referral Date: 10/14/14 Reason for Referral: Outpatient PT. Orders: Evaluate and treat. [facility] [place] Services: Occupational therapy. Speech therapy. Exacerbation Date: 09/19/14 Last Referring MD Visit: 10/14/14 SUBJECTIVE Patient's Therapy Goal: to walk better, reduce back pain, to get back to exercising more again Current Comorbidities: Deep brain stimulation surgery. Mobility Limitations Reported: Bed mobility. Gait deficits. Transfers. Reduced activity tolerance. back pain, occasional freezing/hesitation Balance/Falls in past 6 months: Had 2 falls prior to DBS surgery, including once in Jun and once in August when descending a sloped driveway and falling forward/to right Motor Fluctuations Reported: Yes. Dyskinesia Reported - United Parkinson's Disease Rating Scale (UPDRS): None at this time, although states he had a lot of dyskinesia prior to programming recently Pain: Pain aggravating factors: standing and bending forward, getting up from chair/bed Pain relieving factors: medications and stretching. Takes occasional ibuprofen 7-8/10 in mornings, 3-4/10 during day/10 pain scale Location: R sided lower back pain. Feels a sharp catch in this area when bending forward. Also reports some chest wall tightness on R at site of DBS battery, feeliing it has pulled up. No actually pain at this site, just described as feeling tight. Past Medical History: Past medical history, medication, and allergies were reviewed in the electronic medical record. History pertinent to therapy includes: Parkinson's disease , bilateral STN DBS surgery 09/09/14, depression, cervical disc surgery 200, hyperlipidemia, hernia repair, restless legs syndr ome. Assistive Devices: has one walking stick he was using intermittently prior to surgery, but does not feel the need to use it now. Support System: Lives with spouse/significant other. Living Situation: Private home, more than 1 level. -Access to residence: Stairs to enter. -[facility] -Living environment: Urban-mostly paved areas to ambulate. Driving: Yes. Community Mobility: Independent community ambulation-unrestricted. Frequency of Outings: Leaves home on a daily basis. Community Resources: None/Unknown. Leisure Activities: likes to work on projects around the house, travel, riding his 3 wheeled bike Formal Exercises: Bicycling outdoors. Rides his 3-wheeled bike most days (except winter), does 2 or 3 yoga type stretches (downward dog and triangle pose), has a membership at [employer] but has not been there in about a year. Wants to get back to doing weight machines there and is asking about his readiness. Exercise Frequency: Several times per week. Communication: Clear. Rapid speech, occasional stuttering. 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 Did recently travel to [place] on business, however. OBJECTIVE Blood Pressure: Symptoms: Asymptomatic Behavioral Characteristics: Alert. Cooperative. Pleasant. Motor Function at Time of Eval: On - best level of functioning on medication. Tremor Observed: Mild. Timing: intermittent Position: Resting. Area(s) Affected: Right upper extremity. Rigidity: (UPDRS)-(Judged on passive movement of major joint with pt relaxed in lower extremity. Cogwheeling to be ignored.) 2 = Mild to moderate. Area(s) Affected: Axial. Right upper extremity. Body Bradykinesia and Hypokinesia: (UPDRS)(Combining slowness, hesitancy, decreased armswing, small amplitude and poverty of movement in general). 2 = Mild degree of slowness and poverty of movement which is definitely abnormal. Alternatively, some reduced amplitude. Dyskinesia (at time of evaluation): Absent. Range of Motion: Spinal Mobility: minimally restricted. Muscle Strength: Grossly within normal limits. Posture/Alignment (Gross assessment): Forward head: minimal Lateral trunk lean - right: minimal Transfers: Sit to Stand: Safe and independent. Functional Testing: Timed Up and Go Test (TUG): (Subject stands from arm chair, walks 3 meters (9 feet 10 inches), and sits back down in chair. Test is timed. Scores of young adults <10 seconds, older adults taking >=13.5 seconds classified as fallers with prediction rate of 90%, >30 seconds indicative of significant difficulties with ADL's.) - 10.37 seconds. Divided Attention TUG: TUG Cognitive: 12.28 seconds. 30 Sec Sit Stands: deferred due to back pain with repeated sit-stand Five Times Sit to Stand Test (FTSST): (above 15 seconds considered abnormal for older adults). No Arms - 13.16 seconds. Gait: Assistive Devices: No assistive device. Assistance Required: Independent. General Gait Description: Reduced foot clearance, bilateral., Multistep turn., Start-hesitation., Step hypokinesia, bilateral., Reduced base of support. and Reduced trunk rotation. Gait Velocity (Distance/Time) self-selected pace 1.15 meters per second (m/sec) fast pace 1.87 m/sec [ 0.4 m/sec to 0.8 m/sec indicates limited community ambulator; >0.8 m/sec required for communityambulation; <0.6 m/sec indicates highest risk for fall; <1.0 m/sec indicates need for intervention to reduce falls risk] [Norms for males age 50-59= 1.39-1.43 m/sec for self-selected pace and 2.07 m/sec for fast pace] Balance: Biomechanical Constraints: Base of Support: Narrow. Center of Mass Alignment: Abnormal medial/lateral. Ankle Strength and ROM: Able to stand on toes at maximal height and stand on heels with front of foot up. Joya Balance Scale: deferred additional balance testing at this time in order to focus more time on therapeutic exercise and gait strategies Treatment Today: Physical Therapy Evaluation - 25 minutes Gait Training - 5 minutes; instructed in high amplitude gait strategies emphasizing increased step length and more deliberate heel strike with forward gait. Due to history of 2 falls when descending a slope/hill, advised pt also on strategies to manage intermittent festination/propulsion as reported by pt. Therapeutic activities - 10 minutes; - Education in strategies to avoid freezing and start hesitation. Worked on various turning strategies including kick turns, marching turns, u-turns, clock turns. Advised to avoid fighting through freeze as this will increase risk for falling. Instructed to keep feet apart during small angle turns and perform lateral weight shift strategy to prevent freezing from occurring and to avoid crossing feet to avoid tripping. Pt demonstrated understanding. Therapeutic exercise - 20 minutes; instructed in axial mobility exercises and home program includingknee to chest stretch, hamstring stretch, lower trunk rotation, upper trunk rotation, pelvic tilt with bridging, 4 point cat/camel, child's pose (prayer stretch). Also worked on supine stabilization exercises and postural correction in sitting and standing to reduce lateral shift to R. Advised to do frequent posture checks with mirror at home. Pt reported reduced back pain after exercises today. ASSESSMENT Therapist Impression: Pt is a 59 year old male s/p bilateral DBS surgery 2 months ago, referred to PT by Dr. Phan. Pt presents with gait pattern changes including start hesitation and mild freezingwith turns, postural changes including lateral shift to R, back pain x 1 month, history of 2 falls related to either freezing or festination on sloped surface, reduced activity tolerance (primarily related to back pain). Pt appears highly motivated to increase his activity level. Pt will benefit from additional PT visits to progress his home/community-based exercise routine and help in managing back pain. Recommend he slowly resume exercise at health club. Physical Therapy Practice Pattern: Impaired motor function, sensory integration associated with disorder central nervous system (5E). Impairments: Bradykinesia. Gait pattern changes. Freezing of gait. Hypokinesia. Motor fluctuations. Pain. Postural deviation. Functional Limitations: Falls risk. gait pattern changes including start hesitation Reduced activity tolerance related to back pain Mobility Restrictions: Limited community ambuation >1 block. still somewhat variable Possible Barriers to Goal Achievement: Distance from center (lives in [place]) Rehab Prognosis: Good PLAN Planned Treatment: ADL/Home program. Fall prevention. Cuing strategies. Gait training. Assistive device - hiking pole. Neuromuscular re-education. Therapeutic activities. Therapeutic exercise. Interdisciplinary Referrals: None. Services Recommended: Community exercise class. Support group. Frequency/Duration: for 4 visits Discharge Plan: Satisfactory goals are achieved. Estimated Discharge: 90 [...] to 0-3/10 and self-managed in 90 day(s). Total Treatment: 60 minutes The linemarker is completed by the therapist and the referring clinician's electronic signature certifies medical necessity for the plan above. Katalina Laughlni PT Physical Therapist [place] License # [id number] documented in this encounter Plan of Treatment Scheduled Referrals Name Type Priority Associated Diagnoses Order S [facility] Physical Therapy Referral Routine Paralysis agitans ([facility]) Ordered: 11/04/2014, Expires: 2014 documented as of this encounter Visit Diagnoses Diagnosis Abnormality of gait - Primary Paralysis agitans ([facility]) Paralysis agitans Personal history of fall documented in this encounter Care Teams High Scaler Relationship Specialty Start Date End Date Lurdes Thomas MD PCP - General 06/18/14 12/11/19 documented as of this encounter
--- OUTSIDE RECORDS SUMMARY | 2021-12-28 12:14 | XMS_ITS | Encounter Summary ---
:1955 Author Organization [employer] Address [address], [place] [address] Care Team Providers Name Role Phone Lurdes Thomas MD Primary Care Provider Encounter Details Date Type Department Care Team Description 06/18/2014 Initial Consult Usha Mcpherson Para lysis agitans Services (Primary Dx) [address] [place] [address] Social History Tobacco Use Types Packs/Day Years Used Date Smoking Tobacco: Never Smokeless Tobacco: Never Alcohol Use Standard Drinks/Week Comments Yes 0 (1 standard drink = 0.6 oz pure alcoho l) Sex Assigned at Date Recorded Not on file documented as of this encounter Progress Notes Usha Segovia - 01/25/2016 3:40 PM CDT Referring Provider: Dr. Maria Esther Phan Referring Diagnosis: No diagnosis found Referral Date:06/18/2014 SUBJECTIVE Reason for Visit: Patient presents to Music Therapy for: Multidisciplinary Team Assessment Clinic for Deep Brain Stimulation (DBS). Patient accompanied by . Impairment Addressed: Stress and anxiousness associated with Deep Brain Surgery. Past Medical History: Past medical history, medication, and allergies were reviewed in the pt. medical record. Pain: Not discussed during this session. Fatigue: Not discussed during this session. Stress/Anxiousness: Discussed ways that stress worsens symptoms including pt.'s primary symptom of freezing. Education: Not discussed during this session. 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 Living Environment Lives with . Living Location: [place], [place] Leisure Activities: Not discussed during session. Music Interests/Experiences: Pt. reported that he enjoys playing guitar, but has not played in recent years. OBJECTIVE Observation: Pleasant and cooperative. Eager to learn alternative strategies for managing symptoms. Communication: Clear. Today's Intervention/Education Provided: 1. Provided sample of music assisted relaxation and written resource on relaxation/stress management. Discussed how relaxation strategies could be used on day of surgery and importance of practice of techniques in order to use effectively during stressful situations. 2. Discussed use of relaxation breathing to decrease stress that worsens freezing episodes. Provideddemonstration. 3. Discussed ways symptoms may impede pt.'s ability to resume playing guitar as well as strategies to manage this. Response to Treatment 1. During music assisted relaxation, pt. closed eyes and breathing slowed and deepened. After session, he stated that he was able to relax and reported decrease in pre to post session tension rating. 2. Pt. was better able to initiate walking after freezing episode with use of relaxation breathing techniques. 3. Pt. and appreciated ideas and strategies to help pt. continue with activities that he enjoysthat improve/maintain quality of life. ASSESSMENT Significant Impairments: Stress and anxiousness associated with Deep Brain Surgery. Functional Limitations: None observed. Goals/Functional Outcomes: Practice relaxation techniques to help with managing symptoms as well as stress on the day of surgery. Possible Barriers to Goal Achievement or Learning: None observed. PLAN Planned Intervention/Education: Pt. provided with written and recorded resource to help with practice of strategies at home. Total Treatment Time: 30 minutes. documented in this encounter Plan of Treatment Not on filedocumented as of this encounter Visit Diagnoses Diagnosis Paralysis agitans (HRC) - Primary Paralysis agitans documented in this encounter Care Teams Job Hand Relationship Specialty Start Date End Date Lurdes Thomas MD PCP - General 06/18/14 12/11/19 documented as of this encounter
--- OUTSIDE RECORDS SUMMARY | 2021-12-28 12:14 | XMS_ITS | Encounter Summary ---
:1955 Author Organization [employer] Address [address] [place] [address] Care Team Providers Name Role Phone Lurdes Thomas MD Primary Care Provider Reason for Referral Specialty Diagnoses / Procedures Referred By Contact Refer red To Contact Maria Esther Phan MD [address] [place], [place] [address] Referral ID Status Reason Start Date Expiration Date Visits Requ ested Visits Authorized MA EDUCATOR Reason for Visit Reason Comments Social Service Encounter Details Date Type Department Care Team Description 06/18/2014 Initial Consult [facility] Fabi Beverly Paralys [facility] TRACTOR ENGINE MECHANIC [address] corina Lamas [place], [place] [address] Social History Tobacco Use Types Packs/Day Years Used Date Smoking Tobacco: Never Smokeless Tobacco: Never Alcohol Use Standard Drinks/Week Comments Yes 0 (1 standard drink = 0.6 oz pure alcoho l) Sex Assigned at Date Recorded Not on file documented as of this encounter Progress Notes Fabi Beverly LISW - 06/23/2014 4:56 PM CST Met with pt and his as part of the Pre- Deep Brain Stimulation (DBS) Assessment at the [facility]. Assessment: Current Social Situation Pt and his live in their home in [place]. The pt does have any children, but his has two. The pt is close to his step-daughter and her family. 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 He has been open about his diagnosis and admits to having made changes with the company- he no longer travels and works on the weekends to keep up with projects. Pt and his still socialize, but that has cut back in recent years. Quality of Life Changes/Concerns Parkinson's- symptoms of freezing/difficulty walking, impaired fine motor skills and poor sleep DBS Goals Pt states his goals are to improve walking, decrease medicines, continue working, improve dexterity and improve energy & sleep Concerns if surgery will make his voice worse and the amount of time he will need off work Assessment Tools Vargas Depression Inventory- 15 PDQ Caregiver Strain Index- 4 Plan/Recommendations: Psychosocial Support (Coping, Support Groups, FOCUS program, Caregiver Resource, Counseling, ect) Discussed how Parkinson's may impact mood & suggestion for coping tools; Pt notes that he does have a history of depression, but does not feel it is an issue at this point. He does take Celexa, which he and his feel is helpful. Pt does admit to having job related stress that causes anxiety; he gives example of things that help him cope with that. Pt explained she is concerned about his sleep- he often gets up in the middle of the night and eats as well as writes ideas. He expressed that he enjoyed the creative time, but he does keep his up and is often tired the next day. Community Resources (Home Health, LifeLine, Transportation, Housing, SPC classes, Adult Day Program,Volunteer Options, ect) Pt remains active; no need for resources. Financial (Assistance Programs, Employment, Insurance, Legal, ect) Discussed insurance coverage for surgery; provided names of surgeons to check if prior authorizationis needed. Pt had questions regarding disability, though he does not want to stop working, he is concerned thatthings are getting harder. Answered general questions, suggested if he were more serious about it, he return for a longer conversation about the process. He was open to that in the future. Future Planning (Health Care Directive, other documents, ect) Did not have time to discuss during this session. Director Of Operations For Therapy provided contact information and explained availability to answer any further questions or concerns. Session was 50 minutes long. MA EDUCATOR documented in this encounter Plan of Treatment Scheduled Referrals Name Type Priority Associated Diagnoses Order S chedule [facility] Referral Routine Paralysis agitans (HRC) Ordered: 06/20/2014, CONSULT (AMB) Expires: 06/20 documented as of this encounter Visit Diagnoses Diagnosis Paralysis agitans (HRC) Paralysis agitans documented in this encounter Care Teams Training And Development Assistant Relationship Specialty Start Date End Date Lurdes Thomas MD PCP - General 06/18/14 12/11/19 documented as of this encounter
--- OUTSIDE RECORDS SUMMARY | 2021-12-28 12:14 | XMS_ITS | Encounter Summary ---
:1955 Author Organization [facility] Address [address], [place] [address] Care Team Providers Name Role Phone No Primary/Referring, Phmyah Primary Care Provider Unavailable Encounter Details Date Type Department Care Team Description 01/30/2014 Orders Only [facility] Kiara Cristina, Vitamin D deficiency [address] [place] MD (Primary Dx) [place] [phone] [address] [phone] [place] [address] (Wo rk) Social History Tobacco Use Types Packs/Day Years Used Date Smoking Tobacco: Never Smokeless Tobacco: Never Alcohol Use Standard Drinks/Week Comments Yes 0 (1 standard drink = 0.6 oz pure alcoho l) Sex Assigned at Date Recorded Not on file documented as of this encounter Plan of Treatment Not on filedocumented as of this encounter Visit Diagnoses Diagnosis Vitamin D deficiency (HRC) - Primary Unspecified vitamin D deficiency documented in this encounter Care Teams Tailor Helper Relationship Specialty Start Date End Date No Primary/Referring, Lilliana PCP - General 01/22/14 documented as of this encounter
--- OUTSIDE RECORDS SUMMARY | 2021-12-28 12:14 | XMS_ITS | Encounter Summary ---
:1955 Author Organization [facility] Address [address] [place] [address] Care Team Providers Name Role Phone No Primary/Referring, Phy Primary Care Provider Unavailable Reason for Visit Reason Comments Appt. Scheduled Encounter Details Date Type Department Care Team Description 05/20/2014 Telephone [facility] Sheri Pearson RN Appt. Scheduled [address] [place], [place] [address] Social History Tobacco Use Types Packs/Day Years Used Date Smoking Tobacco: Never Smokeless Tobacco: Never Alcohol Use Standard Drinks/Week Comments Yes 0 (1 standard drink = 0.6 oz pure alcoho l) Sex Assigned at Date Recorded Not on file documented as of this encounter Nursing Notes Sheri Pearson RN - 05/20/2014 4:17 PM CST Patient calling because he was wondering where his MRI was scheduled for on Monday. It is at [facility] at the [place] location. TAIN BRUSH ASSEMBLER documented in this encounter Plan of Treatment Not on filedocumented as of this encounter Visit Diagnoses Not on filedocumented in this encounter Care Teams Condominium Manager Relationship Specialty Start Date End Date No Primary/Referring, Lupilloy PCP - General 01/22/14 documented as of this encounter
--- OUTSIDE RECORDS SUMMARY | 2021-12-28 12:14 | XMS_ITS | Encounter Summary ---
:1955 Author Organization [employer] Address [address] [address] Care Team Providers Name Role Phone Lurdes Thomas MD Primary Care Provider Encounter Details Date Type Department Care Team Description 09/23/2014 Notes/Orders [facility] Jordana Ham, PT [address] [place] [address] [place] [address] [phone] (Wo rk) Social History Tobacco Use Types Packs/Day Years Used Date Smoking Tobacco: Never Smokeless Tobacco: Never Alcohol Use Standard Drinks/Week Comments Yes 0 (1 standard drink = 0.6 oz pure alcoho l) Sex Assigned at Date Recorded Not on file documented as of this encounter Discharge Summaries Jordana Ham, PT - 09/23/2014 8:52 AM CDT Encounter Date: 09/23/2014 Pt : 1955 [facility] Discharge Summary Patient was evaluated on 06/18/2014. He was seen for 1 visits through 06/18/2014. Patient did not return for follow up care as planned, so unable to determine patient's current levelof function or degree of goal achievement. Standardized test results: results below are from initial testing, unable to report d/c status as ptdid not return Timed Up and Go Test (TUG): (Subject stands from arm chair, walks 3 meters (9 feet 10 inches), and sits back down in chair. Test is timed. Scores of young adults <10 seconds, older adults taking >=13.5 seconds classified as fallers with prediction rate of 90%, >30 seconds indicative of significant difficulties with ADL's.) - 1:10.43 minutes using 1 walking pole- pt demonstrated freezing, start hesitation, and difficulty turning 30 Sec Sit Stands: 8.5 (Ann: 13+ = low fall risk; 8-12 = medium fall risk; below 8 = high fall risk) Five Times Sit to Stand Test (FTSST): (above 15 seconds considered abnormal for older adults). No Arms - 17.3 seconds. Good control. Gait: Assistive Devices: Hiking pole/walking pole. Assistance Required: Supervision General Gait Description: Reduced foot clearance, bilateral, multistep turn, freezing, start-hesitation, and step hypokinesia, bilateral. Gait Velocity (Distance/Time): 0.72 m/second with walking pole Balance: Biomechanical Constraints: Base of Support: Narrow. Center of Mass Alignment: Normal anterior/posterior and medial/lateral. Joya Balance Scale: 49/56 14% probability of falls (<47/56 increased risk of falls) Pull Test: Two small steps backward Reactive Postural Response - In Place: (Isometric push back from shoulders with quick release) Forward: Recovers stability with ankles, no added arm or hip motion. (Isometric push back at scapulae with quick release) Backward: Several small steps to recover, mild retropulsion Goal Achievement: unable to assess as pt did not return Patient/Carepartner to verbalize understanding of physical therapy recommendations in 90 day(s). Patient to demonstrate independence of home exercise program with updates/progression as indicated in 90 day(s). Patient/Carepartner to verbalize understanding of fall prevention strategies in 90 day(s). Patient/Carepartner to verbalize understanding of appropriate cuing strategies to facilitate safe mobility with freezing and decrease limitation in 90 day(s). Patient to demonstrate improved pivot transfer mechanics with greater ease and decreased freezing in90 days(s). Patient to demonstrate consistent improvement of gait mechanics with increased bilateral step lengthand height, improved turning, and decreased start hesitation, to allow for more functional gait in 90 days. Reason for Discharge: Pt was evaluated on 06/18/2014 and POC was established with recommendation to return x4-6 visits either before or after DBS surgery, if approved. Pt agreeable at the time though did not schedule additional visits. Called pt to check in and recommend scheduling of a follow up visit, voicemail message was left, did not hear back from pt. Pt's POC has ended. Pt may benefit from skilled PT in the future though will require new order. Discharge at this time. Discharge recommendations: Patient to return to therapy if symptoms recur. Primary therapist: Discharge therapist Program Group: Parkinson Disease Completed by Jordana Ham PT License #: [id number] documented in this encounter Plan of Treatment Not on filedocumented as of this encounter Visit Diagnoses Not on filedocumented in this encounter Care Teams Wet Wash Assembler Relationship Specialty Start Date End Date Lurdes Thomas MD PCP - General 06/18/14 12/11/19 documented as of this encounter
--- OUTSIDE RECORDS SUMMARY | 2021-12-28 12:14 | XMS_ITS | Encounter Summary ---
:1955 [facility] Address [address] [address] Care Team Providers Name Role Phone Unavailable Primary Care Provider Unavailable Encounter Details Date Type Department Care Team Description 11/19/2012 Notes/Orders [facility] Katalina Laughlin, PT [address] [place] [address] [place], [place] [phone] (Wo rk) Social History Tobacco Use Types Packs/Day Years Used Date Smoking Tobacco: Never Assessed Sex Assigned at Date Recorded Not on file documented as of this encounter Progress Notes Katalina Laughlin, PT - 11/19/2012 9:58 AM CDT No show for scheduled PT consult appointment this morning. Katalina Laughlin PT, [facility] License # [id number] documented in this encounter Plan of Treatment Not on filedocumented as of this encounter Visit Diagnoses Not on filedocumented in this encounter
--- OUTSIDE RECORDS SUMMARY | 2021-12-28 12:14 | XMS_ITS | Encounter Summary ---
:1955 Author Organization [facility] Address [address] [address] Care Team Providers Name Role Phone Unavailable Primary Care Provider Unavailable Encounter Details Date Type Department Care Team Description 09/22/2010 PN Conversion Only Alexey Tolentino, [facility] [place] [address] [address] [facility] [place] [address] (Wo rk) Social History Tobacco Use Types Packs/Day Years Used Date Smoking Tobacco: Never Assessed Sex Assigned at Date Recorded Not on file documented as of this encounter Plan of Treatment Not on filedocumented as of this encounter Visit Diagnoses Not on filedocumented in this encounter
--- OUTSIDE RECORDS SUMMARY | 2021-12-28 12:14 | XMS_ITS | Encounter Summary ---
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 INSTRUCTOR Reason for Visit Reason Comments Balance/gait Dysfunction Encounter Details Date Type Department Care Team Description 06/18/2014 Initial Consult [facility] Jordana Ham (Primary Dx); Therapy M, PT Abnormality of gait; [address] [place] [id number] Social History Tobacco Use Types Packs/Day Years Used Date Smoking Tobacco: Never Smokeless Tobacco: Never Alcohol Use Standard Drinks/Week Comments Yes 0 (1 standard drink = 0.6 oz pure alcoho l) Sex Assigned at Date Recorded Not on file documented as of this encounter Progress Notes Jordana Ham, PT - 06/20/2014 8:03 AM CST Visit Date: 06/18/2014 Patient : 1955 Physical Therapy Parkinson Evaluation/Plan of Care [facility] Initial Certification Period: 06/18/2014 to 09/16/14 Referring Provider: Dr. Maria Esther Phan Visit Diagnosis/ICD: Diagnosis (ICD9) ICD-9-CM 1. Paralysis agitans (HCC) 332.0 2. Abnormality of gait 781.2 3. Risk for falls V15.88 Precautions: No precautions Onset/Referral Date: 06/18/2014 Reason for Referral: -Pre-Deep Brain Stimulation (Physical Therapist, Occupational Therapist, Speech and Language Pathologist, In Home Sales Consultant, Registered Nurse). Orders: Evaluate and treat. Milo Parkinson's [place] Services: None. Exacerbation Date: 05/22/2014 Last Referring MD Visit: 02/10/2014 SUBJECTIVE Pt present with . Pt in wheelchair, as he was having difficulty ambulating. Reports that he tookmedication at 9:25 a.m., and states that it takes 1-1.5 hours before the medication takes full effect, so pt was not on until end of session. Pt reports significant on and off times. Reports difficultyat home with freezing, gait, stiffness, and occasional dyskinesia. Denies issues with balance or history of falls. Reports bilat LE swelling, which is being addressed by a physician. Patient's Therapy Goal: Obtain recommendations for home, decrease freezing Current Comorbidities: Back pain Mobility Limitations Reported: Slow but not impaired. Balance/Falls in past 6 months: None reported. Motor Fluctuations Reported: Yes. Significant on/off times, unexpected off times throughout day Dyskinesia Reported - United Parkinson's Disease Rating Scale (UPDRS): Yes, controlled with medication. Pain: None at rest/currently, but has intermittent low back pain. Past Medical History: Past medical history, medication, and allergies were reviewed per patient report. History pertinent to therapy includes: depression and history of cervical spine diskectomy in 1999. Assistive Devices: Walking pole. Standing transporter/scooter used in community during off times. Support System: Lives with spouse/significant other. Living Situation: Private home, more than 1 level. -Access to residence: Stairs to enter. -Living location: [facility]. -Living environment: Urban-mostly paved areas to ambulate. Driving: Yes. Community Mobility: Independent community ambulation using assistive device when on Requires assistance of another person when off. Frequency of Outings: Leaves home on a daily basis. Community Resources: None/Unknown. Leisure Activities: Projects around the house, travel, and building things Formal Exercises: Bicycling outdoors- recumbent 3 wheeled. Has gym membership, but has not been in several months. Exercise Frequency: Occasional/sporadic. Bikes every day in the summer but has been less active in winter. Communication: Clear. Low volume. 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 OBJECTIVE Behavioral Characteristics: Alert. Cooperative. Pleasant. Motor Function at Time of Eval: Varied within session - Off for majority of session, became on with 10 minutes left of session. Tremor Observed: None. Rigidity: (UPDRS)-(Judged on passive movement of major joint with pt relaxed in lower extremity. Cogwheeling to be ignored.) 2 = Mild to moderate. Area(s) Affected: Axial. Body Bradykinesia and Hypokinesia: (UPDRS)(Combining slowness, hesitancy, decreased armswing, small amplitude and poverty of movement in general). 4 = Marked slowness, poverty or small amplitude of movement. Dyskinesia (at time of evaluation): Absent. Range of Motion: Grossly within normal limits. Muscle Strength: Grossly within normal limits. Posture/Alignment (Gross assessment): Unremarkable Transfers: Sit to Stand: Safe and independent. Stand to Sit: Safe and independent. Stand-Pivot: Demonstrates poor mechanics/safety concerns. Functional Testing: Timed Up and Go Test [...] Several small steps to recover, mild retropulsion Treatment Today: Physical Therapy Evaluation - 30 minutes Gait Training - 30 minutes -Gait training using laser cane, pt with decreased freezing, longer step length, higher step height,and increased gait speed; pt expressed feeling much more comfortable walking with laser cane vs. single walking pole, pt and expressed interest in purchasing own laser cane, provided company brochure and suggestions for where to look to purchase -Turning training using wide U-turn method when there is space available, and taking high/marching steps when turning in narrow spaces, therapist demonstrated, pt with reduced freezing and increased stability with return demonstration, handout provided, pt verbalized understanding -Discussed strategies for freezing, including counting, weight shifting, stepping over visual cue (e.g. laser on cane, ce on floor, walking pole), handout provided, pt verbalized understanding -Discussed importance of weight shifting to prevent freezing; instructed pt in anterior-posterior ormedial-lateral weight shifting while standing at home, handout provided, pt verbalized understanding ASSESSMENT Therapist Impression: Pt is a 59 year old male with diagnosis of Parkinson's Disease referred to PT for evaluation and treatment as part of a pre-DBS assessment. Pt was off during the majority of PT session, and did not feel the full effects of his medication until the last 10 minutes. Pt reports significant on/off times, as well as unpredictable off times, freezing, dyskinesia, and gait instability.Pt denies history of falls or balance impairments. At home pt is fairly active, but is not currentlyparticipating in formal exercise. Pt presents with freezing, start hesitation, unsafe pivot turns, hypokinesia, and mild retropulsion. As medication took full effect, pt experienced decreased freezing and hypokinesia. Pt responded well to verbal cues and demonstrations. He was able to trial laser canein session with great success. Pt has not attended PT in the past. Pt would benefit from skilled PT for gait training, strengthening, functional mobility training, establishment of HEP, and further recommendations for at home. 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 Physical Therapy Practice Pattern: Primary prevention/risk reduction for loss of balance and falling. (5A) Impaired motor function, sensory integration associated with disorder central nervous system (5E). Impairments: Bradykinesia. Gait pattern changes. Freezing of gait. Hypokinesia. Knowledge deficit. Motor fluctuations. Muscle rigidity. Retropulsion. Functional Limitations: Transfers: Safety concerns/poor mechanics. Gait instabiltiy. Falls risk. Mobility Restrictions: Limited community ambulation >1 block when off Limited leisure activities when off. . Possible Barriers to Goal Achievement: Lives a distance from clinic - difficult to get here. Work schedule. Rehab Prognosis: Good PLAN Planned Treatment: ADL/Home program. Carepartner instruction. Fall prevention. Cuing strategies. Gait training. Assistive device - hiking pole. Assistive device - cane. Neuromuscular re-education. Therapeutic activities. Therapeutic exercise. Interdisciplinary Referrals: None. Services Recommended: None at this time. Frequency/Duration: Once a week for 4-6 visits Discharge Plan: Evaluation with recommendations. Satisfactory goals [...] for more functional gait in 90 days. Total Treatment: 60 minutes The golf club weighter is completed by the therapist and the referring clinician's electronic signature certifies medical necessity for the plan above. Student performed part or all of the treatment with therapist present in the room, directing the service, and making all skilled judgments and clinical decisions. Completed by Jordana Ham PT License #: [id number] documented in this encounter Plan of Treatment Scheduled Referrals Name Type Priority Associated Diagnoses Order S [facility] Physical Therapy Referral Routine Paralysis agitans (HRC) Ordered: 06/20/2014, Expires: 2014 documented as of this encounter Visit Diagnoses Diagnosis Paralysis agitans (HRC) - Primary Paralysis agitans Abnormality of gait Risk for falls Personal history of fall documented in this encounter Care Teams Technical Solutions Engineer Relationship Specialty Start Date End Date Lurdes Thomas MD PCP - General 06/18/14 12/11/19 documented as of this encounter
--- OUTSIDE RECORDS SUMMARY | 2021-12-28 12:14 | XMS_ITS | Encounter Summary ---
:1955 Author Organization [facility] Address [address] [place] [id number] Care Team Providers Name Role Phone Lurdes Thomas MD Primary Care Provider Reason for Referral Specialty Diagnoses / Procedures Referred By Contact Refer red To Contact Maria Esther Phan MD [address] [place], [place] [address] Referral ID Status Reason Start Date Expiration Date Visits Requ ested Visits Authorized Reason for Visit Reason Comments Device Check Encounter Details Date Type Department Care Team Description 10/14/2014 Nursing Visit [facility] Shawnee Hilario, RN [place] [address] [place], [place] [address] Social History Tobacco Use Types Packs/Day Years Used Date Smoking Tobacco: Never Smokeless Tobacco: Never Alcohol Use Standard Drinks/Week Comments Yes 0 (1 standard drink = 0.6 oz pure alcoho l) Sex Assigned at Date Recorded Not on file documented as of this encounter Progress Notes Shawnee Hilario, RN - 10/14/2014 2:34 PM CDT Deep Brain Stimulation (DBS) Programming Note: HPI: Andrew Pang is a 59 y.o. with bilateral STN DBS implantation. Surgeon:Dr. Gonzalez Rowland Surgery date/location: [facility] 09/09/2014 Battery replacement: None Device type: Activa PC Indication: Parkinsons Update since last visit: He had severe dyskinesia after his initial programming so he decreased his stimulation and then also reduced his medication as directed by Dr. Phan. He cut his Comtan into half tabs 4 times per day and cut his Neupro 8mg patch in half . Then after a couple of days he slowly increased his stimulation slightly. He states his freezing his 90-95% improved but his speech remains unchanged. He would like to follow up with the rehab team as was instructed after DBS assessment. Initial settings: Left STN 0 negative case positive 2.2V PW 60 Rate 150 therapy impedence 1242 current 1.790. No problems on electrode impedence check. Right STN 9 negative 10 positive 2.1V PW 60 Rate 150, therapy impedence 1146 current 1.835. No problems on electrode impedence. Battery voltage 3.07V Stimulation on 99%. He looked great. Finger taps, hand movements, facial expression and gait were all improved. I tried to increase his stimulation on the right brain but he felt his throat was tight so we put it back to 2.1V. We consulted with Dr. Phan as to the next step with medication adjustments and he will discontinue the comtan all together. Final settings: Left STN 0 negative case positive 2.2V PW 60 Rate 150 Range on cnc operator programmer 2.1-2.7 Right STN 9 negative 10 positive 2.1V PW 60 Rate 150 Range on cnc operator programmer 1.8-2.6 If he wants to try to gradually increase amplitude at home paying attention to throat and speech he can or he can call us. He has a follow up programming appointment in 3-4 weeks. Total face to face programming time: 30 minutes Follow up: Mid October Supervising provider:Dr. Maria Esther Hilario RN documented in this encounter Plan of Treatment Scheduled Referrals Name Type Priority Associated Diagnoses Order S chedule DBS PROGRAMMING CONSULT Referral Routine Paralysis agitans (HRC) Ordered: 10/14/2014, (AMB) Expires: 2014 documented as of this encounter Visit Diagnoses Diagnosis Paralysis agitans (HRC) Paralysis agitans documented in this encounter Care Teams Procurement Clerk Relationship Specialty Start Date End Date Lurdes Thomas MD PCP - General 06/18/14 12/11/19 documented as of this encounter
--- OUTSIDE RECORDS SUMMARY | 2021-12-28 12:14 | XMS_ITS | Encounter Summary ---
:1955 Author Organization [employer] Address [address], [place] [address] Care Team Providers Name Role Phone Lurdes Thomas MD Primary Care Provider Reason for Visit Reason Comments Sleep problems Encounter Details Date Type Department Care Team Description 11/12/2014 Telephone [facility] Doris Arauz, RN Sleep problems [address] [place], [place] [address] Social History Tobacco Use Types Packs/Day Years Used Date Smoking Tobacco: Never Smokeless Tobacco: Never Alcohol Use Standard Drinks/Week Comments Yes 0 (1 standard drink = 0.6 oz pure alcoho l) Sex Assigned at Date Recorded Not on file documented as of this encounter Nursing Notes Doris Arauz RN - 11/26/2014 3:02 PM CDT Called and LM for Andrew asking him to call back if he has any concerns. Fabi Ray RN - 11/12/2014 4:35 PM CDT Left message for Andrew on his mobile phone that he can increase his trazodone to 100 mg nightly, 2 tablets. Requested he call nurse line to let us know he got and understands the plan. Requested he callus back in a week or so for outcomes of change. We can then issue a new prescription. Maria Esther Phan MD - 11/12/2014 2:13 PM CDT Can increase trazodone to 2 tablets (tota; 100 mg) and let us know if it works ,then we can update his prescription. sap Doris Arauz RN - 11/12/2014 12:43 PM CDT Saw Andrew today for one month post-DBS programming visit. He is very happy with DBS results. One issues he is having is that he is not sleeping well. He gets about 4-7 hours per night. States he can get to sleep okay, but wakes up at 4am and cannot get back to sleep. He has tried taking extra carb/levo. Also has tried melatonin and Tylenol PM. He is currently taking trazodone. documented in this encounter Plan of Treatment Not on filedocumented as of this encounter Visit Diagnoses Not on filedocumented in this encounter Care Teams Programming Development Project Manager Relationship Specialty Start Date End Date Lurdes Thomas MD PCP - General 06/18/14 12/11/19 documented as of this encounter
--- OUTSIDE RECORDS SUMMARY | 2021-12-28 12:14 | XMS_ITS | Encounter Summary ---
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 Reason Comments Adl Problem Encounter Details Date Type Department Care Team Description 06/18/2014 Initial Consult Angela Moore (Primary Dx); Occupational Therapy Tylor Bates OTR/L Other ill-defined conditions(799.89) [address] [facility] [address] [place] [phone] [id number] Social History Tobacco Use Types Packs/Day Years Used Date Smoking Tobacco: Never Smokeless Tobacco: Never Alcohol Use Standard Drinks/Week Comments Yes 0 (1 standard drink = 0.6 oz pure alcoho l) Sex Assigned at Date Recorded Not on file documented as of this encounter Progress Notes Tylor Marr OTR/Stefan - 06/18/2014 4:45 PM CST Encounter Date: 06/18/2014 Pt. : 1955 [facility] Services Occupational Therapy - Evaluation/Plan of Care Initial Certification Period: 06/18/2014 to 08/17/14 Referring Provider: Dr. Maria Esther Phan Referring Diagnosis: Parkinson's Disease Visit Diagnosis/IDC Code: Diagnosis (ICD9) ICD-9-CM 1. Paralysis agitans (HCC) 332.0 2. Other ill-defined conditions(799.89) 799.89 Precautions: No known precautions. Orders: Evaluate and treat. Onset/Referral Date: 06/18/2014 SUBJECTIVE Reason for Visit: Patient presents to Occupational Therapy for: Pre-Deep Brain Stimulation Assessment. Patient accompanied by , Natasha. Family reports wearing off of medication, interfering with ambulation, writing , work functions. Patient Therapy Goals: Bed mobility. Exercise program. Completion of Pre DBS assessment and radiology receptionist of recommendations. Past Medical History: Past medical history, medication, and allergies were reviewed in the electronic medical record. Pertinent to therapy: Restless leg syndrome. . Previous Occupational Therapy: Unknown. Pain: Location: Back pain in morning. Education: High school. 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 Living Location: [facility]. Driving: Yes. Community Mobility: Assistive device - walking pole Frequency of Outings: Leaves home on a daily basis. Community Resources: None/Unknown. Formal Exercises: Biking stationary. Bicycling outdoors. Exercise Frequency: Client had been biking outdoors frequently in warmer months,; has has reportedlynot been exercising in recent months but states he will resume using his stationary bike. OBJECTIVE Observation: alert, motivated, cooperative, oriented , insightful Upper Extremity Function Hand Dominance: Right Range of Motion: Grossly within normal limits bilaterally. Bradykinesia: (UPDRS)(Combining slowness, hesitancy, decreased armswing, small amplitude and poverty of movement in general). -Left Upper Extremity: 1 = Minimal slowness, giving movement a deliberate character, could be normal for some persons. Possible reduced amplitude. -Right Upper Extremity: 1 = Minimal slowness, giving movement a deliberate character, could be normal for some persons. Possible reduced amplitude. Strength: -Left upper extremity: within normal limits. -Right upper extremity: within normal limits. -Component Engineer: Left - 99 lbs =75%; Right - 137 lbs. =99% Dyskinesia (UPDRS): Not observed. Tremor (UPDRS): Rest: 1=Slight and infrequently present. Right hand. Other Observations: Edema: None. Dystonia: Area affected - None. Rigidity: Area affected - Not assessed. Other: Freezing during narrow turns. Sensation: No problems reported. Lower Extremity Function Assistive Devices: Walking pole. Client has wheelchair for off periods. Balance: Hx falls related to freezing, but none in recent months. Endurance/Activity Tolerance: good Vision/Visual Perception: Glasses - Reading. Cognition: MOCA performed on patient. Scored 29/30 Normal = 26-30 normal Mild cognitive impairment = 19-25 Moderate to severe = 0-18 Safety Awareness: No problems observed. Behavioral Characteristics: Alert. Cooperative. Pleasant. Communication: Dysarthria. Rapid speech. Standardized Test Results: Activities of Daily Living: (UPDRS): Handwriting (Self report): 3=Severely affected, not all words are legible Handwriting (Observed): 2=Modeately slow or small, all words are legible Cutting food (Self report): 1=Somewhat slow and clumsy, but no help needed. Dressing (Self report): 1=Somewhat slow, but no help needed. Dressing (Observed): 1=Somewhat slow, but no help needed. Hygeine (Self report): 1=Somewhat slow, but no help needed. Turning in bed (Self report): 1=Somewhat slow and clumsy, but no help needed. Falling (Self report): 1=Rare falls. Freezing when walking (Self report): 3=Frequent freezing. Occasionally falls from freezing. Freezing when walking (Observed): 2=Occasional freezing when walking. Walking (Self report): 2=Moderate difficulty, but requires little or no assistance. Walking (Observed): 0=Normal. Posture (Observed): 0=Normal-erect. Medication Management FIM scale (Self report): 7=Independent. Takes medication on time. Physical Performance Test (PPT): (Performance based assessment of seven ADL functions including writing, eating, dressing, UE reaching, balance, turning and walking. Percentile comparison with independent living senior, average age 79 years. 28 maximum score) 22(75%). Today's Intervention/Education Provided: --Evaluation. --Pre DBS (Deep Brain Stimulator) surgery instruction: Exercise to maximize physical condition. Havecommode available followikng surgery. Importance and methods to take medications on time. Benefits and limitations of DBS as related to this client. --Compensatory strategies/adaptive equipment for falls prevention using: Use bow and arrow stance. Turn in wide circles. --Compensatory strategies/adaptive equipment for increased handwriting legibility using: Wide project eng pen. Aim big. Write slower. Response to Treatment: Demonstrated comprehension of strategies and equipment use. Verbalized receptivity to recommendations. ASSESSMENT Receptive to instruction and recommendations. Motivated to preserve/enhance function and wellness.Client was seen as part of interdisciplinary pre-DBS interdisciplinary. He described himself as being on, and exhibited no difficulty with simulated ADL's, but exhibited difficulty turning in small circles. He reports difficulty with bed mobility, doing buttons, and writing legibly, especially when medications are not working. No concerns regarding DBS candidacy were noted. Client was instructed in potential benefits/limitations of DBS surgery as well as preparations for perioperative period of surgeryand recovery period at home. He was instructed in use of bow and arrow stance to decrease risk offalls and facilitate turning. Client would benefit from follow up session to address home exercise program for combating hypokinesia, and promoting dexterity and ROM, as well as instruction in compensatory methods of bed mobility. Significant Impairments: Decreased ADL performance. Bradykinesia. Coordination deficits. Motor fluctuations. Tremor. Functional Limitations: Dressing upper body. Bed mobility. Bed transfers. History of falls. Handwriting. Work skills. Goals/Functional Outcomes: Patient/Care-partner to verbalize/demonstrate improved technique to facilitate mobility for independence with safety turning in bed, adjusting bedclothes, and bed transfers via bed rail, satin sheet and optimal body mechanics in 60 days. Patient/Care-partner to verbalize/demonstrate understanding of strategies and adaptations to environment to facilitate prevention of falls in 60 days. Patient/Care-partner to verbalize/demonstrate understanding of instruction for facilitating abilityto dress self for independence via compensatory methods and adaptations in 60 days. Patient/Care-partner to demonstrate increase in functional legibility of handwriting via compensatory methods and adaptations in 60 days. Patient/Care-partner to verbalize/demonstrate understanding of exercise program for improved independence in ADL's: fine motor, large amplitude upper body exercises and range of motion in 60 days. Possible Barriers to Goal Achievement or Learning: Distance from clinic. 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 Prognosis: Excellent for established goals. PLAN: Evaluation plus one-two follow up sessions; duration 60 days. Planned Intervention/Education: Adaptive equipment recommendations. Care-partner instruction. Compensatory ADLs. Education. Instruction in home exercise program. Education in falls prevention. Interdisciplinary Referrals:None. [...] with care plan. Plan for Next Treatment: Bed mobility. Dressing. Instruction in home exercise program. Procedures: Occupation Therapy Evaluation (CPT 40264): 30 minutes ADL/Self management (CPT 47781): 30 minutes Total Treatment Time: 60 minutes. The traveling passenger agent is completed by the therapist and the referring clinician's electronic signature certifies medical necessity for the plan above. Tylor Marr OTR/L Lic#[id number] documented in this encounter Plan of Treatment Scheduled Referrals Name Type Priority Associated Diagnoses Order S [facility] Occupational Therapy Referral Routine Paralysis agitans (H RC) Ordered: 06/20/2014, Expires: 2014 documented as of this encounter Visit Diagnoses Diagnosis Paralysis agitans (HRC) - Primary Paralysis agitans Other ill-defined conditions(799.89) Other ill-defined conditions documented in this encounter Care Teams Vascular Technologist Sonographer Relationship Specialty Start Date End Date Lurdes Thomas MD PCP - General 06/18/14 12/11/19 documented as of this encounter
--- OUTSIDE RECORDS SUMMARY | 2021-12-28 12:14 | XMS_ITS | Encounter Summary ---
:1955 Author Organization [facility] Address [address], [place] [address] Care Team Providers Name Role Phone Lurdes Thomas MD Primary Care Provider Encounter Details Date Type Department Care Team Description 09/17/2014 Notes/Orders [facility] Paige Clifford, HYDROSTATIC TESTER [address] [place], [place] [address] [place] [address] (Wo rk) Social History Tobacco Use Types Packs/Day Years Used Date Smoking Tobacco: Never Smokeless Tobacco: Never Alcohol Use Standard Drinks/Week Comments Yes 0 (1 standard drink = 0.6 oz pure alcoho l) Sex Assigned at Date Recorded Not on file documented as of this encounter Progress Notes Paige Garcia SLP - 09/17/2014 10:39 AM CDT Client did not schedule additional speech therapy appointments as recommended at the time of initialevaluation on 06/18/2014. Certification period is now . Will close out speech chart at this time. If the client would like to pursue treatment in the future, a new speech evaluation and treatmentorder should be obtained from the physician. documented in this encounter Plan of Treatment Not on filedocumented as of this encounter Visit Diagnoses Not on filedocumented in this encounter Care Teams Practice Director Relationship Specialty Start Date End Date Lurdes Thomas MD PCP - General 06/18/14 12/11/19 documented as of this encounter
--- OUTSIDE RECORDS SUMMARY | 2021-12-28 12:14 | XMS_ITS | Encounter Summary ---
:1955 Author Organization [employer] Address [address], [place] [address] Care Team Providers Name Role Phone Lurdes Thomas MD Primary Care Provider Reason for Visit Reason Comments Post-Op Follow Up Call Encounter Details Date Type Department Care Team Description 09/23/2014 Telephone [facility] Shawnee Hilario RN Post-Op Follow Up Call [address] [place] [phone] Social History Tobacco Use Types Packs/Day Years Used Date Smoking Tobacco: Never Smokeless Tobacco: Never Alcohol Use Standard Drinks/Week Comments Yes 0 (1 standard drink = 0.6 oz pure alcoho l) Sex Assigned at Date Recorded Not on file documented as of this encounter Nursing Notes Shawnee Hilario RN - 09/29/2014 9:21 AM CDT Left third message for patient to call to discuss initial programming visit and see how he is doing post. I will close the encounter. Shawnee Hilario RN - 09/23/2014 10:55 AM CDT Attempted call to patient for post DBS follow up call and to discuss his upcoming programming appointments. Left message to call back. It might be advised to hold his medication longer than he did for his assessments so his symptoms are more prominent. documented in this encounter Plan of Treatment Not on filedocumented as of this encounter Visit Diagnoses Not on filedocumented in this encounter Care Teams Cattle Manager Relationship Specialty Start Date End Date Lurdes Thomas MD PCP - General 06/18/14 12/11/19 documented as of this encounter
--- OUTSIDE RECORDS SUMMARY | 2021-12-28 12:14 | XMS_ITS | Encounter Summary ---
:1955 Author Organization [facility] Address [address], [place] [address] Care Team Providers Name Role Phone Lurdes Thomas MD Primary Care Provider Encounter Details Date Type Department Care Team Description 06/18/2014 Notes/Orders [facility] Doris Arauz, Paralysis agitans [address] (Primary D x) [place] [address] Social History Tobacco Use Types Packs/Day Years Used Date Smoking Tobacco: Never Smokeless Tobacco: Never Alcohol Use Standard Drinks/Week Comments Yes 0 (1 standard drink = 0.6 oz pure alcoho l) Sex Assigned at Date Recorded Not on file documented as of this encounter Progress Notes Doris Arauz RN - 06/23/2014 5:11 PM CST Please sign pended orders for DBS TAC. Old orders had . Older the 90 days. Thanks. . 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
--- OUTSIDE RECORDS SUMMARY | 2021-12-28 12:14 | XMS_ITS | Encounter Summary ---
:1955 Author Organization [facility] Address [address] [place] [address] Care Team Providers Name Role Phone Unavailable Primary Care Provider Unavailable Encounter Details Date Type Department Care Team Description 08/17/2009 PN Conversion Only MARCO CONVERSION Alexey Garcia, [address] [place] [address] [address] [place], [place] [address] (Wo rk) Social History Tobacco Use Types Packs/Day Years Used Date Smoking Tobacco: Never Assessed Sex Assigned at Date Recorded Not on file documented as of this encounter Plan of Treatment Not on filedocumented as of this encounter Procedures Procedure Name Priority Date/Time Associated Diagnosis Comme nts GLUCOSE Routine 08/17/2009 8:30 AM Results f or this CDT procedure are i n the results section. VITAMIN D 25 OH Routine 08/17/2009 8:30 AM Result s for this CDT procedure are i n the results section. LIPID PANEL AND Routine 08/17/2009 8:30 AM Result s for this DIRECT LDL(IF CDT procedure are in NEEDED) the results section. PROSTATIC SPECIFIC Routine 08/17/2009 8:30 AM Res ults for this ANTIGEN (DIAGNOSTIC CDT procedur e are in F/U) the results section. ALT (SGPT) Routine 08/17/2009 8:30 AM Results f or this CDT procedure are i n the results section. documented in this encounter Results (ABNORMAL) VITAMIN D 25 OH (08/17/2009 8:30 AM CDT) P athologist Signature Vitamin D 25 24 (L) 30 - 80 HP CONVERSION Oh ng/mL Comment: REFERENCE INTERVAL: Vitamin D, 25-Hydrox y This assay accurately quantifies the sum of vitamin D3, 25-hydroxy and vitamin D2, 25-hydroxy. 0-17 years: Deficiency: less than 20 ng/mL Optimum level: greater than or equal to 20 ng/mL* *([place] CL et al. Pediatrics 2008; 122: 1128-38.) 18 years and older: Deficiency: Less than 20 ng/mL Insufficiency: 20-29 ng/mL Optimum Level: 30-80 ng/mL Possible Toxicity: Greater than 150 ng/m L Performed at [facility] [address] [place] [address] 8 Specimen (Source) Anatomical Collection Method Collection Time Re ceived Time Location / / Volume Laterality 08/17/2009 8:30 AM CDT Alexey Garcia MD LAB_1 Performing Organization Address City/[facility] Code Phon e Number HP CONVERSION Prostatic Specific Antigen (F/U) (08/17/2009 8:30 AM CDT) P athologist Signature Prostate 0.6 0.0 - 4.0 HP CONVERSION Specific ng/mL Antigen Specimen (Source) Anatomical Collection Method Collection Time Re ceived Time Location / / Volume Laterality 08/17/2009 8:30 AM CDT Alexey Garcia MD LAB_1 Performing Organization Address City/[facility]/ZIP Code Phon e Number HP CONVERSION Lipid Panel and Direct LDL(If Needed) (08/17/2009 8:30 AM CDT) Patholo gist Method Time Signature Cholesterol 183 0 - 200 HP CONVERSION mg/dL Triglycerides 56 0 - 149 HP CONVERSION mg/dL HDL Cholesterol 69 >39 mg/dL HP CONVERSION Cholesterol/HDL 2.7 No normal HP CONVERSION Ratio Screen range LDL Calculated 103 19 - 130 HP CONVERSION mg/dL Length Of Fast 12.0 No normal HP CONVERSION range Specimen (Source) Anatomical Collection Method Collection Time Re ceived Time Location / / Volume Laterality 08/17/2009 8:30 AM CDT Alexey Garcia MD LAB_1 Performing Organization Address City/[facility] Code Phon e Number HP CONVERSION (ABNORMAL) GLUCOSE (08/17/2009 8:30 AM CDT) P athologist Signature Lab Glucose 105 (H) 60 - 100 HP CONVERSION mg/dL Specimen (Source) Anatomical Collection Method Collection Time Re ceived Time Location / / Volume Laterality 08/17/2009 8:30 AM CDT Alexey Garcia MD LAB_1 Performing Organization Address [facility] Phon e Number HP CONVERSION ALT (SGPT) (08/17/2009 8:30 AM CDT) [facility] Method Time Signature Alanine 33 4 - 55 HP CONVERSION Aminotransferase U/L Specimen (Source) Anatomical Collection Method Collection Time Re ceived Time Location / / Volume Laterality 08/17/2009 8:30 AM CDT Alexey Garcia MD LAB_1 Performing Organization Address [facility] Phon e Number HP CONVERSION documented in this encounter Visit Diagnoses Not on filedocumented in this encounter
--- OUTSIDE RECORDS SUMMARY | 2021-12-28 12:14 | XMS_ITS | Encounter Summary ---
:1955 [facility] Address [address], [place] [address] Care Team Providers Name Role Phone Lurdes Thomas MD Primary Care Provider Encounter Details Date Type Department Care Team Description 10/06/2014 Notes/Orders [facility] Shawnee Hilario, Paralysis agitans [address] RN (Primary D x) [place] [address] Social History Tobacco Use Types Packs/Day Years Used Date Smoking Tobacco: Never Smokeless Tobacco: Never Alcohol Use Standard Drinks/Week Comments Yes 0 (1 standard drink = 0.6 oz pure alcoho l) Sex Assigned at Date Recorded Not on file documented as of this encounter Progress Notes Shawnee Hilario RN - 10/07/2014 3:56 PM CDT Please sign order for DBS programming and follow up. documented in this encounter Plan of Treatment Not on filedocumented as of this encounter Visit Diagnoses Diagnosis Paralysis agitans (HRC) - Primary Paralysis agitans documented in this encounter Care Teams Lan Administrator Relationship Specialty Start Date End Date Lurdes Thomas MD PCP - General 06/18/14 12/11/19 documented as of this encounter
--- OUTSIDE RECORDS SUMMARY | 2021-12-28 12:14 | XMS_ITS | Encounter Summary ---
:1955 Author Organization [employer] Address [address] [place] [address] Care Team Providers Name Role Phone No Primary/Referring, Phy Primary Care Provider Unavailable Reason for Visit Reason Comments Establish Care MEDICATION CHECK Encounter Details Date Type Department Care Team Description 01/28/2014 Office Visit Kiara Zepeda Hyperlipide cierar (Primary Dx); Rober Aviles MD Parkinson's disease; [address] [facility] [address] [place] [address] Screening for diabetes mellitus; [place] [id number] [place] [address] Screening for prostate cancer; [phone] Special screeni ng for malignant neoplasms, colon; (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 Social History Tobacco Use Types Packs/Day Years Used Date Smoking Tobacco: Never Smokeless Tobacco: Never Alcohol Use Standard Drinks/Week Comments Yes 0 (1 standard drink = 0.6 oz pure alcoho l) Sex Assigned at Date Recorded Not on file documented as of this encounter Last Filed Vital Signs Vital Sign Reading Time Taken Comments Blood Pressure 128/79 01/28/2014 9:33 AM CDT Pulse 92 01/28/2014 9:33 AM CDT Temperature - - Respiratory Rate - - Oxygen Saturation - - Inhaled Oxygen Concentration - - Weight 91.4 kg (201 lb 9.6 oz) 01/28/2014 9:12 AM CDT Height 188 cm (6' 2) 01/28/2014 9:12 AM CDT Body Mass Index 25.88 01/28/2014 9:12 AM CDT documented in this encounter Patient Instructions Patient InstructionsKiara Cristina MD - 01/28/2014 9:23 AM CDT Fecal Immunochemical Test Instructions We have ordered a FIT (Fecal Immunochemical testing) test for you today. The test will look for the presence of blood in your stool. This test order is effective for 5 years. You will repeat this test annually. For today's test, please go directly to the clinic???s lab to orange picker machine operator your test kit. There will be specific instructions inside the kit on how you obtain the samples and details on how you return the kit once the samples are collected. For the following four years, you will be sent a reminder letter and mailed a new collection kit. documented in this encounter Progress Notes Kiara Cristina MD - 01/30/2014 6:00 PM CDT Patient Active Problem List Diagnosis ??? Parkinson's disease ??? Hyperlipidemia ??? Vitamin D deficiency S> Andrew Pang is a 58 yr old male is in for routine checkup. He feels generally well. Current concerns: needs to establish new primary care, needs some follow up labs for meds, and will need future med refills. Sexual activity: monogamous in a stable relationship . Cardiovascular risk factors: hyperlipidemia Nutrition/diet/weight concerns: no concerns Present dietary habits: tries to make low fat, high fiber choices most of the time. Present exercise habits: exercises moderately elevating heart rate 1-4 times a week. Domestic violence concerns (per TANO morrison):denies any concern I have asked the patient and reviewed the following history(ies): Family, Medical, Social and Surgical Review of systems include: CONSTITUTIONAL: Negative RESPIRATORY: no shortness of breath, no cough, no sputum CARDIOVASCULAR: no palpitations, no irregular heart beats, no chest pain, no exertional chest pain or pressure Remainder of a 12 point Review of Systems is negative except for chronic symptoms related to his parkinson's disease O> General: 58 yr pleasant male who appears his stated age. Today's vital signs were reviewed by me. HEENT: Eyes: no lesions of lids, mattering or redness Head: normocephalic Mouth and throat: without erythema or lesions of the mucosa Nose: without septal or mucosal abnormalities Ears: external canals and TMs free of lesions or abnormalities Neck: supple, without adenopathy or thyromegaly. Lungs: clear to auscultation, no wheezes or rales CV: regular rate and rhythm, normal S1 and S2 without murmur or click Abd: soft, non-tender, no masses, no hepatomegaly or splenomegaly. : not examined MS: normal muscle tone & symmetry Skin: A few scattered benign appearing nevi and Some boateng angiomatae Neuro: motor and sensory function grossly normal with cranial nerves intact. A> 1) Preventive Evaluation and Exam 2) parkinson's 3) hyperlipidemia 4) erectile dysfunction P> See today's orders for details Labs as ordered Refills of meds as ordered Discussed the importance of: Low fat, high fiber diet and Regular exercise Follow-up in 1 years for preventive care. Kaira Cristina MD 6:00 PM 01/30/2014 documented in this encounter Plan of Treatment Not on filedocumented as of this encounter Procedures Procedure Name Priority Date/Time Associated Diagnosis Comme nts FIT COLLECTION KIT Routine 01/28/2014 9:30 AM Special screenin g for Results for this PREP CDT malignant neoplasms, procedu re are in colon the results section. LIPID PANEL AND Routine 01/28/2014 9:30 AM Hyperlipidemia Resu lts for this DIRECT LDL(IF CDT procedure are in NEEDED) the results section. VITAMIN D Routine 01/28/2014 9:30 AM Screening for diabetes Results for this 25-HYDROXY, TOTAL CDT mellitus procedure are in the results section. LIVER PANEL(HEPATIC Routine 01/28/2014 9:30 AM Hyperlipidemia Results for this FUNCTION PANEL) CDT procedure ar e in the results section. PROSTATIC SPECIFIC Routine 01/28/2014 9:30 AM Screening for pr ostate Results for this ANTIGEN(SCREEN) CDT cancer procedure ar e in the results section. HGB A1C Routine 01/28/2014 9:30 AM Screening for diabetes Results for this CDT mellitus procedure are i n the results section. documented in this encounter Results FIT COLLECTION KIT PREP (01/28/2014 9:30 AM CDT) [facility] gist Method Time Signature FIT Kit Prep Collection Kit [facility] Given to LABORATORIES Patient Specimen Anatomical Collection Method Collection Time Receive d Time (Source) Location / / Volume Laterality 01/28/2014 9:30 AM 4 9:31 CDT AM CDT Narrative [facility] - 02/04/2014 8:08 AM C DT Performed at [facility], [facility], [place] [address] Kiara Cristina MD LAB_1 Performing Organization Address City/State/ZIP Code Phon e Number [facility] [phone] PROSTATIC SPECIFIC ANTIGEN(SCREEN) (V76.44) (01/28/2014 9:30 AM CDT) P athologist Signature Prostatic Spec 0.97 0.00 - [facility] Ag 4.00 ng/ml LABORATORIES Specimen Anatomical Collection Method Collection Time Receive d Time (Source) Location / / Volume Laterality 01/28/2014 9:30 AM 4 9:31 CDT AM CDT Narrative [facility] - 01/28/2014 7:22 PM C DT Performed at [facility], [address] [place] [address] ??[phone] Kiara Cristina MD LAB_1 Performing Organization Address City/[facility]/ZIP Code Phon e Number [facility] [phone] (ABNORMAL) VITAMIN D 25-HYDROXY, TOTAL (V77.99) (01/28/2014 9:30 AM CDT) [facility] gist Method Time Signature Vitamin 14.8 (L) 30.0 - [facility] D,25-OH, Tot 80.0 LABORATORIES ng/mL Comment: Deficiency: ??< 20 ng/mL Insufficiency: ??20-29 ng/mL Optimum Level: ??30-80 ng/mL Possible Toxicity: > 80 ng/mL Specimen Anatomical Collection Method Collection Time Receive d Time (Source) Location / / Volume Laterality 01/28/2014 9:30 AM 4 9:31 CDT AM CDT Narrative [facility] - 01/28/2014 9:27 PM C DT Performed at [facility] , [address] [place] [address] Kiara Cristina MD LAB_1 Performing Organization Address City/State/ZIP Code Phon e Number [facility] [phone] LIVER PANEL(HEPATIC FUNCTION PANEL) (01/28/2014 9:30 AM CDT) [facility] Method Time Signature Alkaline 89 38 - 126 [facility] Phosphatase U/L LABORATORIES Bilirubin, Total 0.8 0.2 - 1.3 [facility] mg/dl LAB[facility]IES Bilirubin, 0.0 0.0 - 0.3 [facility] Direct mg/dl LABORATORIES ALT (SGPT) 28 0 - 69 U/L [facility] AST (SGOT) 52 0 - 66 U/L [facility] Protein, Total 7.2 6.3 - 8.2 [facility] g/dl LAB[facility] Albumin 4.2 3.5 - 5.0 [facility] g/dl LAB[facility] A/G Ratio, calc. 1.4 >1.0 [facility] Specimen Anatomical Collection Method Collection Time Receive d Time (Source) Location / / Volume Laterality 01/28/2014 9:30 AM 4 9:31 CDT AM CDT Narrative [facility] - 01/28/2014 7:22 PM C DT Performed at [facility], [address] [place] [address] ??[phone] Kiara Cristina MD LAB_1 Performing Organization Address City/[facility] Phon e Number [facility] [phone] HGB A1C (01/28/2014 9:30 AM CDT) athologist Signature Hgb A1c 5.9 4.3 - 6.1 % [facility] Specimen Anatomical Collection Method Collection Time Receive d Time (Source) Location / / Volume Laterality 01/28/2014 9:30 AM 4 9:31 CDT AM CDT Narrative [facility] - 01/29/2014 9:55 AM C DT Performed at [facility], [address] [place] [address] ??[phone] Kiara Cristina MD LAB_1 Performing Organization Address City/[facility] Phon e Number [facility] [phone] (ABNORMAL) LIPID PANEL AND DIRECT LDL(IF NEEDED) (01/28/2014 9:30 AM CDT) Component Value Ref Test Analysis Performed At [facility] Range Method Time Signature Hours Fasting Information hours [facility] Not Given LABORATORIES Cholesterol 224 (H) 0 - 199 [facility] mg/dl LAB[facility] Triglyceride 224 (H) 0 - 149 [facility] mg/dl LAB[facility] HDL 61 >40 [facility] mg/dl LAB[facility] LDL, Calc. 118 0 - 129 [facility] mg/dl LAB[facility] Non HDL Chol, 163 mg/dl [facility] Calc [facility] Specimen Anatomical Collection Method Collection Time Receive d Time (Source) Location / / Volume Laterality 01/28/2014 9:30 AM 4 9:31 CDT AM CDT Narrative [facility] - 01/28/2014 7:22 PM C DT Performed at [facility], [address] [place] [address] ??[phone] Kiara Cristina MD LAB_1 Performing Organization Address City/State/ZIP Code Phon e Number [facility] [phone] documented in this encounter Visit Diagnoses Diagnosis Hyperlipidemia (HRC) - Primary Other and unspecified hyperlipidemia Parkinson's disease (HRC) Screening for diabetes mellitus Screening for prostate cancer Special screening for malignant neoplasm of prostate Special screening for malignant neoplasm s, colon Preventative health care Routine general medical examination at a health care facility documented in this encounter Care Teams Licensing Registration Examiner Relationship Specialty Start Date End Date No Primary/Referring, Phy PCP - General 01/22/14 documented as of this encounter
--- OUTSIDE RECORDS SUMMARY | 2021-12-28 12:14 | XMS_ITS | Encounter Summary ---
:1955 Author Organization [employer] Address [address], [place] [address] Care Team Providers Name Role Phone Lurdes Thomas MD Primary Care Provider Encounter Details Date Type Department Care Team Description 10/22/2014 Notes/Orders [facility] 3931 Zhanna Pedraza MD Neurology [address] [facility] [address] [place] [address] [place] [phone] Social History Tobacco Use Types Packs/Day Years Used Date Smoking Tobacco: Never Smokeless Tobacco: Never Alcohol Use Standard Drinks/Week Comments Yes 0 (1 standard drink = 0.6 oz pure alcoho l) Sex Assigned at Date Recorded Not on file documented as of this encounter Progress Notes Millie Pedraza MD - 10/22/2014 4:43 PM CDT DBS TEAM MEETING: Messi Blair decided to pay for the procedure, which was a bilateral STN procedure. He had some freezing initially after surgery, but that seems to have resolved. He is doing pretty well. THere were some social work issues initially, but that also seems to have subsided. He has PT, OT, and Speech appointments later this month and a follow up with Dr. Phan in mid-November. documented in this encounter Plan of Treatment Not on filedocumented as of this encounter Visit Diagnoses Not on filedocumented in this encounter Care Teams Boom Man Relationship Specialty Start Date End Date Lurdes Thomas MD PCP - General 06/18/14 12/11/19 documented as of this encounter
--- OUTSIDE RECORDS SUMMARY | 2021-12-28 12:14 | XMS_ITS | Encounter Summary ---
:1955 Author Organization [employer] Address [address], [place] [address] Care Team Providers Name Role Phone No Primary/Referring, Phy Primary Care Provider Unavailable Reason for Visit Reason Comments Questions Encounter Details Date Type Department Care Team Description 05/05/2014 Telephone [facility] Fabi Ray, RN Questions [address] corina [place], [place] [address] Social History Tobacco Use Types Packs/Day Years Used Date Smoking Tobacco: Never Smokeless Tobacco: Never Alcohol Use Standard Drinks/Week Comments Yes 0 (1 standard drink = 0.6 oz pure alcoho l) Sex Assigned at Date Recorded Not on file documented as of this encounter Nursing Notes Fabi Ray, RN - 05/05/2014 1:32 PM CST Andrew calling asking about specifics for DBS process. He states he has an all day appointment here on05/26/13. Our records show DBS TAC is on 06/18/13. Explained process for pre-DBS testing with team, neuropsych, MRI. Results reviewed at team meeting, then results appointment with Dr. Phan. He sees Dr. Phan now in [place] due to copay. Explained that best if results appointment can be at [facility] he can meet with the DBS nurse after. Also explained will need to see the DBS nurse at [facility] post DBS if approved for surgery. Good comprehension of plan. Transferred to front line to set up results appointment with Dr. Phan and to review pre-DBS appointments. Post-note: Confirmed with front line that 05/26/13 appt is for MRI and neuropsych with Dr. Ramirez. TE TECHNICIAN documented in this encounter Plan of Treatment Not on filedocumented as of this encounter Visit Diagnoses Not on filedocumented in this encounter Care Teams Police Patrol Lieutenant Relationship Specialty Start Date End Date No Primary/Referring, Phy PCP - General 01/22/14 documented as of this encounter
--- OUTSIDE RECORDS SUMMARY | 2021-12-28 12:14 | XMS_ITS | Encounter Summary ---
:1955 Author Organization [employer] Address [address] [place] [address] Care Team Providers Name Role Phone Lurdes Thomas MD Primary Care Provider Reason for Referral Specialty Diagnoses / Procedures Referred By Contact Refer red To Contact Maria Eshter Phan MD [address] [place], [place] [address] Referral ID Status Reason Start Date Expiration Date Visits Requ ested Visits Authorized C BLOWER Reason for Visit Reason Comments VOICE, LOSS OF Encounter Details Date Type Department Care Team Description 06/18/2014 Initial Consult [place] Paige Quesada inson's disease (Primary Dx); Therapy M, WEIGHT TRAINING INSTRUCTOR Dysphonia; [address] [employer] [place] [id number] Social History Tobacco Use Types Packs/Day Years Used Date Smoking Tobacco: Never Smokeless Tobacco: Never Alcohol Use Standard Drinks/Week Comments Yes 0 (1 standard drink = 0.6 oz pure alcoho l) Sex Assigned at Date Recorded Not on file documented as of this encounter Progress Notes Paige Garcia, WEIGHT TRAINING INSTRUCTOR - 06/18/2014 5:17 PM CST Encounter Date: 06/18/2014 Patient : 1955 Speech Therapy - Parkinson's Disease Evaluation and Plan of Care [facility] Services Multidisciplinary Assessment Clinic Outpatient Evaluation Initial Certification Period: 06/18/2014 to 08/17/14 Referring Provider: Maria Esther Phan Referring Diagnosis: Parkinson's disease Visit Diagnosis/ICD Codes: Diagnosis (ICD9) ICD-9-CM 1. Parkinson's disease (HCC) 332.0 2. Dysphonia 784.42 Precautions: None. Orders: Evaluate and treat. Onset/Referral Date: 05/22/2014 SUBJECTIVE Reason for Visit: Patient presents to Speech Therapy with concerns that his voice and speech are disappointing. He reported that he does not have as much air, he mumbles more and hurries when he gets excited. He reported that when he speaks too fast his pronunciation decreases.He feels that his memoryis good. He denied any difficulty swallowing, dry mouth or saliva control issues. Voice-Related Quality of Life Index: 22.Good to fair. Patient Therapy Goal: To learn to make adjustments prior to possible DBS. Past Medical History: Past medical history, medication and allergies were reviewed in the electronicmedical record. Pain: Patient denies having any pain (0 out of 10 on the pain scale). Diet at Time of this Evaluation: General texture. Any liquids. Previous Speech Therapy: Received at [facility] [place]. Evaluation only 08/23/2007. Hand Dominance: Right Hearing Acuity: Within Functional Limits. Glasses: No. Education: High school. 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 Marital Status: . Living Environment: Lives with spouse. Private Home. OBJECTIVE Observation: Alert. Motivated. Cooperative. Oriented. Oral Motor: Overall Level of Impairment: Within Normal Limits. Drooling: Absent. Tongue: Overall Level of Impairment: Within Normal Limits. Range of Motion: Within Normal Limits. At rest: WNL During movement: WNL. Lips: Overall Level of Impairment: Within Normal Limits. Range of Motion: Within Normal Limits. Facial: Overall Level of Impairment: Mild deficits. Observations: Facial masking: mild Articulation/Speech: Overall Level of Impairment: Mild deficits. Imprecision during rushes of speech. Blurred word boundaries. Diadochokinetics: Repetition of single phonemes: WNL. Repetition of single words: WNL. Fluency: Overall Level of Impairment: Mild-moderate impairment. Rushes of speech. Rate: Overall Level of Impairment: Mild-moderate impairment. Rushes of speech. Breath Support: Overall Level of Impairment: Moderate deficits. Testing Observations: Sustained phonation of /a/: 8.6 seconds. Other Comments: reduced respiratory support for speech and voice, reduced coordination of inhalation/exhalation and shallow breathing Voice: Testing Observations: Quality: Within Normal Limits. Loudness: Mild deficits, monoloudness Loudness in conversation: 71 dB Loudness in paragraph readin dB Pitch: mild-moderate deficits Pitch range in conversation: 97 Hz Pitch range in paragraph readin Hz Pitch range: Minimum: 82 Hz, Maximum: 283 Hz Resonance: Within Normal Limits. Stress/Intonation: Monopitch. Monoloudness. Swallow Function: Overall Level of Impairment: Within Normal Limits. PO Trials: THIN LIQUIDS: Tested by: consecutive sip by cup. -Oral function is within normal limits. No aspiration signs. Expressive Language: Within Normal Limits. Memory Function: Overall level of impairment: within normal limits. -Orientation: Within normal limits. 10/25 -Immediate: Within normal limits. 09/23 -Recent: Within normal limits. -Remote: Within normal limits. 09/23 Total Treatment Time: 60 minutes ASSESSMENT Therapist Impression/Summary: Client presents a mild communication impairment characterized by increased rate interfering with speech intelligibility during rushes of speech. Breath support is reduced as well as pitch range and inflection. Memory and swallowing function appear WNL. Client reported feeling on during the speech evaluation. He reported that his voice is softer and more mumbled when heis off. His reported that she is not aware of much difference but agreed that at times his speech is unintelligible. We discussed having him return for a brief period of treatment to improve breath support and focus on slow rate to improve intelligibility. Recommendations: Brief course of individual speech therapy. Assistant Professor Of Archaeology Speech Goal: Client will be able to be understood without repetition 80% of the time in their daily environment as measured by patient report. Assistant Professor Of Archaeology Swallowing Goal: -None Assistant Professor Of Archaeology Memory/Cognition Goal: None. Short Term Goals: -Independent in speech/voice home program. -Client will improve respiratory support for speech and voice to provide a basis for intelligible speech. -Client will increase articulation accuracy for improved speech intelligibility. -Client will decrease speech rate for improved intelligibility. Goals Achieved Today at [facility] [place]: -Client and/or family verbalized comprehension of today's evaluation results and recommendations. -Client and/or family verbalized comprehension of the effect of Parkinson's disease on speech and voice and the role of speech therapy. -Client and/or family verbalized comprehension of strategies to improve communication with dysphonia/dysarthria. -Client and/or family verbalized comprehension of home program of voice exercises to improve speech and voice. (Handout provided) Potential Barriers to Goal Achievement or Learning: None apparent. Prognosis: Good for established goals. PLAN Education: Patient and/or family educated on results and recommendations. Recommended Referral to/for: None. Frequency/Duration: Once a week for 1- 3 weeks. Discharge Plan: Patient will be discharged from speech therapy when goals are achieved or patient plateaus in progress. Informed Consent: Patient and/or family in agreement with care plan. The director environmental is completed by the therapist, and the referring clinician's electronic signature certifies medical necessity for the plan above. documented in this encounter Plan of Treatment Scheduled Referrals Name Type Priority Associated Diagnoses Order [facility] Speech Therapy Referral Routine Paralysis agitans (HRC) Or dered: 06/20/2014, Expires: 2014 documented as of this encounter Visit Diagnoses Diagnosis Parkinson's disease (HRC) - Primary Dysphonia Paralysis agitans (HRC) Paralysis agitans documented in this encounter Care Teams Automation Engineer Relationship Specialty Start Date End Date Lurdes Thomas MD PCP - General 06/18/14 12/11/19 documented as of this encounter
--- OUTSIDE RECORDS SUMMARY | 2021-12-28 12:14 | XMS_ITS | Encounter Summary ---
:1955 Author Organization [employer] Address [address], [place] [address] Care Team Providers Name Role Phone Lurdes Thomas MD Primary Care Provider Reason for Visit Reason Comments Sleep problems Back Pain Questions Encounter Details Date Type Department Care Team Description 12/02/2014 Office Visit [facility] Parashos, Maria Esther Paralysis agitans [address], MD (Primary Dx) Drive [address] [facility] [address] [place], [place] [phone] (Wo rk) Social History Tobacco Use Types Packs/Day Years Used Date Smoking Tobacco: Never Smokeless Tobacco: Never Alcohol Use Standard Drinks/Week Comments Yes 0 (1 standard drink = 0.6 oz pure alcoho l) Sex Assigned at Date Recorded Not on file documented as of this encounter Last Filed Vital Signs Vital Sign Reading Time Taken Comments Blood Pressure 120/88 12/02/2014 3:34 PM CDT Pulse 76 12/02/2014 3:34 PM CDT Temperature - - Respiratory Rate - - Oxygen Saturation - - Inhaled Oxygen Concentration - - Weight 95.3 kg (210 lb 1.6 oz) 12/02/2014 3:32 PM CDT Height - - Body Mass Index 27.73 07/08/2014 8:56 AM 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 Stop the Neupro patch. After a week or two see if you can get by taking the carbo/levodopa ER 3 times a day. documented in this encounter Progress Notes Maria Esther Phan MD - 12/02/2014 3:44 PM CDT Dictated. documented in this encounter Plan of Treatment Not on filedocumented as of this encounter Visit Diagnoses Diagnosis Paralysis agitans (HRC) - Primary Paralysis agitans documented in this encounter Care Teams Fryline Attendant Relationship Specialty Start Date End Date Lurdes Thomas MD PCP - General 06/18/14 12/11/19 documented as of this encounter
--- OUTSIDE RECORDS SUMMARY | 2021-12-28 12:14 | XMS_ITS | Encounter Summary ---
:1955 Author Organization [facility] Address [address], [place] [address] Care Team Providers Name Role Phone Lurdes Thomas MD Primary Care Provider Encounter Details Date Type Department Care Team Description 07/23/2014 Notes/Orders [facility] Millie Pedraza MD [address] [place], [place] [address] [address] [facility] N [id number] (Wo rk) Social History Tobacco Use Types Packs/Day Years Used Date Smoking Tobacco: Never Smokeless Tobacco: Never Alcohol Use Standard Drinks/Week Comments Yes 0 (1 standard drink = 0.6 oz pure alcoho l) Sex Assigned at Date Recorded Not on file documented as of this encounter Progress Notes iMllie Pedraza MD - 07/23/2014 4:42 PM CST DBS TEAM MEETING: PT scheduled for bilateral STN procedure through Dr. Rowland. He does have some freezing of gait and stammering voice, and knows that this might not improve with DBS. PT has worked with him before, and will contact him to continue with PT before his surgery, as he was getting some benefits. 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
--- OUTSIDE RECORDS SUMMARY | 2021-12-28 12:14 | XMS_ITS | Encounter Summary ---
:1955 Author Organization [employer] Address [address] [place] [address] Care Team Providers Name Role Phone Lurdes Thomas MD Primary Care Provider Reason for Visit Reason Comments Follow-up Encounter Details Date Type Department Care Team Description 10/07/2014 Office Visit [facility] Parashos, Sotirios Paralysis agitans [address], MD (Primary Dx) Drive [address] [facility] [address] [place], [place] [phone] (Wo rk) Social History Tobacco Use Types Packs/Day Years Used Date Smoking Tobacco: Never Smokeless Tobacco: Never Alcohol Use Standard Drinks/Week Comments Yes 0 (1 standard drink = 0.6 oz pure alcoho l) Sex Assigned at Date Recorded Not on file documented as of this encounter Last Filed Vital Signs Vital Sign Reading Time Taken Comments Blood Pressure 130/78 10/07/2014 10:02 AM CDT Pulse 72 10/07/2014 10:02 AM CDT Temperature - - Respiratory Rate - - Oxygen Saturation - - Inhaled Oxygen Concentration - - Weight 93.4 kg (206 lb) 10/07/2014 10:01 AM CDT Height - - Body Mass Index 27.18 07/08/2014 8:56 AM 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 Cut the Neupro patches in half and use 1/2 patch daily. If the behavioral problems continue after2 weeks then stop the patch. If the behavioral issues stop, then fill the written prescription for the 4 mg patches and use one a day. 2. I will have our social welfare administrator, Fabi Beverly contact you and your as well. 3. If you have increased dyskinesia over the next week then decrease the Comtan to 1/2 tablet each dose. documented in this encounter Progress Notes Maria Esther Phan MD - 10/07/2014 10:43 AM CDT Dictated. documented in this encounter Plan of Treatment Not on filedocumented as of this encounter Visit Diagnoses Diagnosis Paralysis agitans (HRC) - Primary Paralysis agitans documented in this encounter Care Teams Director Trade Relationship Specialty Start Date End Date Lurdes Thomas MD PCP - General 06/18/14 12/11/19 documented as of this encounter
--- OUTSIDE RECORDS SUMMARY | 2021-12-28 12:14 | XMS_ITS | Encounter Summary ---
:1955 Author Organization [facility] Address [address], [place] [address] Care Team Providers Name Role Phone Lurdes Thomas MD Primary Care Provider Encounter Details Date Type Department Care Team Description 08/20/2014 Notes/Orders [facility] Millie Pedraza MD [address] [place], [place] [address] [address] [facility] N [id number] (Wo rk) Social History Tobacco Use Types Packs/Day Years Used Date Smoking Tobacco: Never Smokeless Tobacco: Never Alcohol Use Standard Drinks/Week Comments Yes 0 (1 standard drink = 0.6 oz pure alcoho l) Sex Assigned at Date Recorded Not on file documented as of this encounter Progress Notes Millie Pedraza MD - 08/20/2014 4:59 PM CDT DBS TEAM MEETING: Pt scheduled for DBS surgery with Dr. Rowland on 09/09/14. He has some freezing of gait and speech issues. documented in this encounter Plan of Treatment Not on filedocumented as of this encounter Visit Diagnoses Not on filedocumented in this encounter Care Teams Professor Of Physics Relationship Specialty Start Date End Date Lurdes Thomas MD PCP - General 06/18/14 12/11/19 documented as of this encounter
--- OUTSIDE RECORDS SUMMARY | 2021-12-28 12:14 | XMS_ITS | Encounter Summary ---
:1955 [address] 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, 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 Dysphonia; [address] [place], [place] [phone] Social History Tobacco Use Types Packs/Day Years Used Date Smoking Tobacco: Never Smokeless Tobacco: Never Alcohol Use Standard Drinks/Week Comments Yes 0 (1 standard drink = 0.6 oz pure alcoho l) Sex Assigned at Date Recorded Not on file documented as of this encounter Progress Notes Casi De La Rosa, 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 - 11/04/2014 4:56 PM CDT Encounter Date: 11/04/2014 Patient : 1955 Speech Therapy - Parkinson's Disease Evaluation and Plan of Care [facility] Multidisciplinary Assessment Outpatient Evaluation Initial Certification Period: 11/04/2014 to 02/02/15 Referring Provider: Maria Esther Phan Referring Diagnosis: Parkinson's disease Visit Diagnosis/ICD Codes: Diagnosis (ICD9) ICD-9-CM ICD-10-CM 1. Paralysis agitans (HCC) 332.0 G20 2. Dysphonia 784.42 R49.0 3. Dysarthria 784.51 R47.1 Precautions: None. Orders: Evaluate and treat. Onset/Referral Date: 10/07/2014 SUBJECTIVE Reason for Visit: Patient presents to Speech Therapy with concerns about his speech. He says his speech rate is too fast. It was fast prior to DBS surgery and now he feels it is slightly worse. 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 He is on the phone a lot and speaking to his crew often. He's frequently asked to repeat himself and feels his speech is interfering with his work. No real concerns about swallowing - coughs on solids about 1-2 times per month. Knows he needs to becareful not to talk and eat at the same time. He has occasional dry mouth. No drooling. Feels his memory is good. . Voice-Related Quality of Life Index: 24. Fair. Patient Therapy Goal: To be better understood and not feel like I have to repeat myself all the timeto others. Past Medical History: Past medical history, medication and allergies were reviewed in the electronicmedical record. Pertinent to therapy: Deep brain stimulation - 08/2014. Bilateral STN placement. Pain: Patient denies having any pain (0 out of 10 on the pain scale). Diet at Time of this Evaluation: General texture. Any liquids. Previous Speech Therapy: Received at [facility]. Evaluation 08/23/07 - WFL. Evaluation 06/18/14 with recommendation for treatment. He did not follow up then. Is ready to pursue treatmentnow. Hand Dominance: Right Hearing Acuity: Within Functional Limits. Glasses: Reading glasses. Education: High school. 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 [employer] for [employer] Marital Status: . Living Environment: Lives with spouse. OBJECTIVE Observation: Alert. Motivated. Cooperative. Oral Motor: Overall Level of Impairment: Within Functional Limits. Drooling: Absent. Tongue: Overall Level of Impairment: Within Functional Limits. Range of Motion: Within Functional Limits. At rest: WNL During movement: WNL. Lips: Overall Level of Impairment: Within Functional Limits. Range of Motion: Within Functional Limits. Observations: WFL. Facial: Overall Level of Impairment: Mild deficits. Observations: Facial masking: mild Articulation/Speech: Overall Level of Impairment: Mild-moderate deficits. Imprecision during rushes of speech. Diadochokinetics: Repetition of single phonemes: Precise, but too fast. Repetition of single words: WNL. Fluency: Overall Level of Impairment: Within Functional Limits. Rate: Overall Level of Impairment: Moderate impairment. Rapid. Rushes of speech. Breath Support: Overall Level of Impairment: Moderate deficits. Testing Observations: Sustained phonation of /a/: 9 seconds. Other Comments: reduced respiratory support for speech and voice Voice: Testing Observations: Quality: Within Normal Limits. Loudness: Mild deficits, Loudness in conversation: 69 dB Loudness in paragraph readin dB Pitch: Within Functional Limits. Pitch range in conversation: 255 Hz Pitch range in paragraph readin Hz Resonance: Within Normal Limits. Stress/Intonation: WNL Swallow Function: Overall Level of Impairment: Within Functional Limits. PO Trials: THIN LIQUIDS: Tested by: regular sip by cup, consecutive sip by cup. -Oral function is within normal limits. No aspiration signs. Expressive Language: Within Functional Limits. Memory Function: Overall level of impairment: within functional limits. -Orientation: Within normal limits. 10/25 -Immediate: Within normal limits. 09/23 -Recent: Within normal limits. -Remote: Within normal limits. 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 Breath support is reduced and volume is mildly decreased. Further treatment is recommended, but the client works full-time. Will not be able to come in at the frequency/duration recommended.Will try for once per week. Home practice provided in the mean time. He's motivated to work on his own. Recommendations: Individual speech therapy. Mold Closer Speech Goal: Client will be able to be understood without repetition 80% of the time in their daily environment as measured by patient report. Fdc Swallowing Goal: -None Fdc Memory/Cognition Goal: None. Short Term Goals: -Independent in speech/voice home program. -Client will improve respiratory support for speech and voice to provide a basis for intelligible speech. -Client will increase articulation accuracy and decrease rate for improved speech intelligibility. -Client will increase voice volume to at least 75 dB in structured speech tasks at 80% to create a loudness habit for carryover into conversational speech. -Client will increase voice volume to at least 73 dB in paragraph reading at 80% to create a loudness habit for carryover into conversational speech. -Client will increase voice volume to at least 70 dB in conversational speech at 80% to achieve intelligible loudness. Goals Achieved Today at [facility]: -Client and/or family verbalized comprehension of today's evaluation results and recommendations. -Client and/or family verbalized comprehension of the effect of Parkinson's disease on speech and voice and the role of speech therapy. -Client and/or family verbalized comprehension of strategies for saliva control (dry mouth). (Handout provided) -Client and/or family verbalized comprehension of home program of voice exercises to improve speech and voice. (Handout provided) Potential Barriers to Goal Achievement or Learning: None apparent. Prognosis: Good for established goals. PLAN Education: Patient and/or family educated on results and recommendations. Recommended Referral to/for: None. Frequency/Duration: 1-2 times per week for 4-12 weeks. Discharge Plan: Patient will be discharged from speech therapy when goals are achieved or patient plateaus in progress. Informed Consent: Patient and/or family in agreement with care plan. The storage solutions architect is completed by the therapist, and the referring clinician's electronic signature certifies medical necessity for the plan above. documented in this encounter Plan of Treatment Scheduled Referrals Name Type Priority Associated Diagnoses Order S [facility] Speech Therapy Referral Routine Paralysis agitans (HRC) Or dered: 11/04/2014, Expires: 2014 documented as of this encounter Visit Diagnoses Diagnosis Paralysis agitans (HRC) - Primary Paralysis agitans Dysphonia Dysarthria documented in this encounter Care Teams Cotton Jammer Relationship Specialty Start Date End Date Lurdes Thomas MD PCP - General 06/18/14 12/11/19 documented as of this encounter
--- OUTSIDE RECORDS SUMMARY | 2021-12-28 12:14 | XMS_ITS | Encounter Summary ---
:1955 Author Organization [employer] Address [address] [place] [address] Care Team Providers Name Role Phone Lurdes Thomas MD Primary Care Provider Reason for Visit Reason Comments Questions Encounter Details Date Type Department Care Team Description 11/28/2014 Telephone [facility] Doris Arauz RN Questions [address] [place] [address] Social History Tobacco Use Types Packs/Day Years Used Date Smoking Tobacco: Never Smokeless Tobacco: Never Alcohol Use Standard Drinks/Week Comments Yes 0 (1 standard drink = 0.6 oz pure alcoho l) Sex Assigned at Date Recorded Not on file documented as of this encounter Nursing Notes Doris Arauz RN - 11/28/2014 3:43 PM CDT Spoke with Andrew. He was wondering if we know the name of a gait specialist. Transferred him to [facility] D[facility] to ask if she any recommendations. He will see Dr. Phan on Monday. Doris Arauz RN - 11/28/2014 3:29 PM CDT Andrew called back. States he has a few things he would like to discuss. Called back and LM asking him to give us a call back. documented in this encounter Plan of Treatment Not on filedocumented as of this encounter Visit Diagnoses Not on filedocumented in this encounter Care Teams Jewel Supervisor Relationship Specialty Start Date End Date Lurdes Thomas MD PCP - General 06/18/14 12/11/19 documented as of this encounter
--- OUTSIDE RECORDS SUMMARY | 2021-12-28 12:14 | XMS_ITS | Encounter Summary ---
:1955 Author Organization [facility] Address [address], [place] [address] Care Team Providers Name Role Phone No Primary/Referring, Phy Primary Care Provider Unavailable Reason for Visit Reason Comments Patient Calling Back Encounter Details Date Type Department Care Team Description 04/15/2014 Telephone [facility] Shawnee Hilario, RN Patient Calling Back [address] [place], [place] [address] Social History Tobacco Use Types Packs/Day Years Used Date Smoking Tobacco: Never Smokeless Tobacco: Never Alcohol Use Standard Drinks/Week Comments Yes 0 (1 standard drink = 0.6 oz pure alcoho l) Sex Assigned at Date Recorded Not on file documented as of this encounter Nursing Notes Doris Arauz RN - 04/16/2014 10:44 AM CST Andrew called back wanting to schedule DBS TAC. States he spoke with Doris at [facility] and has an appointment set up 05/26/14. Do not see this appointment in our system at [facility]. Transferred him to [facility]. Shawnee Hilario RN - 04/15/2014 4:22 PM CST Patient left a message on the DBS nurse line stating he was returning a call about scheduling DBS. We had called him a month or so ago to tell him about our process and our understanding was he wanted to wait until After May because of insurance reasons. It may have been the front office help calling himto schedule. Left him a message asking him to speak to Gricelda. T WRAPPER documented in this encounter Plan of Treatment Not on filedocumented as of this encounter Visit Diagnoses Not on filedocumented in this encounter Care Teams Locker Plant Attendant Relationship Specialty Start Date End Date No Primary/Referring, Phy PCP - General 01/22/14 documented as of this encounter
--- OUTSIDE RECORDS SUMMARY | 2021-12-28 12:14 | XMS_ITS | Encounter Summary ---
:1955 Author Organization [facility] Address [address] [place] [address] Care Team Providers Name Role Phone Unavailable Primary Care Provider Unavailable Encounter Details Date Type Department Care Team Description 05/05/2009 Nursing Visit [facility] [place] [address] [place] [address] Social History Tobacco Use Types Packs/Day Years Used Date Smoking Tobacco: Never Assessed Sex Assigned at Date Recorded Not on file documented as of this encounter Plan of Treatment Not on filedocumented as of this encounter Visit Diagnoses Not on filedocumented in this encounter
--- OUTSIDE RECORDS SUMMARY | 2021-12-28 12:14 | XMS_ITS | Encounter Summary ---
:1955 Author Organization [facility] Address [address] [place] [address] Care Team Providers Name Role Phone Lurdes Thomas MD Primary Care Provider Reason for Referral Specialty Diagnoses / Procedures Referred By Contact Refer red To Contact Maria Esther Phan MD [address] [place], [place] [address] Referral ID Status Reason Start Date Expiration Date Visits Requ ested Visits Authorized Reason for Visit Reason Comments Device Check Encounter Details Date Type Department Care Team Description 10/07/2014 Nursing Visit [facility] Shawnee Hilario, RN [place] [address] [place], [place] [address] Social History Tobacco Use Types Packs/Day Years Used Date Smoking Tobacco: Never Smokeless Tobacco: Never Alcohol Use Standard Drinks/Week Comments Yes 0 (1 standard drink = 0.6 oz pure alcoho l) Sex Assigned at Date Recorded Not on file documented as of this encounter Progress Notes Shawnee Hilario, RN - 10/09/2014 11:50 AM CDT Deep Brain Stimulation (DBS) Initial Programming HPI: Andrew Pang is a 59 y.o. withbilateral STN DBS implantation. Surgeon: Dr. Gonzalez Rowland Surgery date/location: September 09 [facility] Device type: Activa PC Indication:Parkinsons Update since last visit:Surgery went well, he reports a lesion effect for several days. States his walking was better. Vargas Depression Index: 5 UPDRS off motor score 22 Total Levodopa dose CR 800-900mg IR 100-300mg Neupro 8mg patch and comtan 200mg with each CR dose and Amantadine 100mg BID Surgical Complications:None. Incisions are healing well. There is a small scab on the right side near extension lead but no redness or swelling around it. Initial settings: Therapy off Electrode Impedence: No problems found on Left or Right lead at 1.5V Battery Voltage:3.12V Left Brain: Most prevalent Symptom: Used finger taps, heel taps and gait as measurements. Contact 3 negative Case Positive PW: 60 Rate:150 Benefit Side effect other 0.5V none none 1.0V none none 1.5V none none 2.0V none none 2.5V none none 3.0V none dizziness resolved at 2.8V Contact 2 negative Case positive PW: 60 Rate:150 Benefit Side Effect other 0.5V none none 1.0V none throat felt tight 1.5V none slight dizziness/transient felt more relaxed 2.0V freezing persists, gait better once moving transient dizziness 2.5V none feels flushed all over resolved at 2.3 Contact 1 negative Case positive PW: 60 Rate:150 Benefit Side Effect other 0.5V none none 1.0V none transient sweatiness 1.5V none slight twitching of right side of mouth 2.0V transient tingling right fingers, harder to do finger taps 2.5V no improvement in freezing none 3.0V none no further benefit Contact 0 negative Case Positive PW: 60 Rate:150 Benefit Side Effect other 0.5V none none 1.0V none none 1.5V feels relaxed transient dizziness 2.0V feels very relaxed none freezing persisted 2.5V very relaxed none freezing persisted 3.0V dizziness no change Right Brain: Most Prevalent Symptom: Left hand tremor, freezing of gait Contact 11 negative Case Positive PW: 60 Rate: 150 Benefit Side Effect other 0.5V none none 1.0V none none 1.5V none none 2.0V none none 2.5V none none 3.0V none none 3.5V none dizziness, speech changes, slight tingling sensation Contact 10 negative Case Positive PW 60 Rate 135 Benefit Side Effect other 0.5V none none 1.0V none none 1.5V none none 2.0V none none 2.5V reduction in tremor dizziness dizziness resolved at 2.3V 3.0V reduction in trenmor dizziness Contact 9 Negative Case Positive PW: 60 Rate: 135 Benefit Side Effect other 1.0V none none 1.5V slight decrease tremor slight dizziness transient 2.0V no tremor transient tightness in neck freezing of gait persisted stride slightly improved once he could walk 2.5V no tremor none 3.0V no tremor tightness in neck dizziness side effects persisted at 2.8 down to 2.3 6.5V 7.0V Contact 8 negative Case Positive PW: 60 Rate:150 Benefit Side Effect other 1.0V none increased tightness in throat 1.5V none tightness in throat worse Other Settings Tested: 9 negative 10 positive 1.5 no tremor none 2.0 no tremor feels good, no side effect 2.5 no tremor felt tightness 2.4 no tremor tightness gone 3.0V no tremor, improved finger taps and heel taps 3.3 no tremor no side effects, feels really good freezing of gait persisted 3.5 no tremor dizziness Final settings: Left STN 0 negative case positive 2.5V PW 60 Rate 150 therapy impedence 1183 current 2.125 Right STN 9 negative 10 positive 2.1V PW 60 Rate 150 therapy impedence 1159 current 1.816 Patient Director Critical Care Range: Left 2.1-2.7 Right 1.7-2.5. Total face to face programming time: 2 hours UPDRS on motor score 13 Patient called about an hour after he left and said he was having a lot of dyskinesia so he turned his amplitude down a few levels. I spoke to Dr. Phan and he had advised that he decreased his entacapone to half tabs at each dose of Sinemet CR and cut his neupro patch in half. Reassured patient that dyskinesia means we were in the right spot and if after a few days of reducing medications if he is having no dyskinesia he could try increasing the stimulation back up a little. Follow up: Returns in one week, to call sooner if any questions or concerns Supervising provider:Dr. Maria Esther Hilario RN documented in this encounter Plan of Treatment Scheduled Referrals Name Type Priority Associated Diagnoses Order S chedule DBS PROGRAMMING CONSULT Referral Routine Paralysis agitans (HRC) Ordered: 10/07/2014, (AMB) Expires: 2014 documented as of this encounter Visit Diagnoses Diagnosis Paralysis agitans (HRC) Paralysis agitans documented in this encounter Care Teams Electrical Prospecting Engineer Relationship Specialty Start Date End Date Lurdes Thomas MD PCP - General 06/18/14 12/11/19 documented as of this encounter
--- OUTSIDE RECORDS SUMMARY | 2021-12-28 12:14 | XMS_ITS | Encounter Summary ---
:1955 Author Organization [facility] Address [address], [place] [address] Care Team Providers Name Role Phone Lurdes Thomas MD Primary Care Provider Encounter Details Date Type Department Care Team Description 06/25/2014 Notes/Orders [facility] Millie Pedraza MD [address] [place], [place] [address] [address] [facility] N [id number] (Wo rk) Social History Tobacco Use Types Packs/Day Years Used Date Smoking Tobacco: Never Smokeless Tobacco: Never Alcohol Use Standard Drinks/Week Comments Yes 0 (1 standard drink = 0.6 oz pure alcoho l) Sex Assigned at Date Recorded Not on file documented as of this encounter Progress Notes Millie Pedraza MD - 06/25/2014 4:25 PM CST DBS TEAM MEETING: Pt of Dr. Phan with PD for about 7 years, on 1200mg levodopa/day, on/off 18/6,UPDRS ADL score 17, MOCA 29, MIDI 0, BDI 15. He was quite off in PT and had a hard time moving, but despite that did well on the Joya 49/56. 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 The main issue is severe difficulty moving when he is off, and the amount of time spent in the off state. He has some depression and sleep di.turbance. He seems like a good candidate for DBS. Dr. Phan will meet with him on 07/08/14/ OR MILITARY ANALYST documented in this encounter Plan of Treatment Not on filedocumented as of this encounter Visit Diagnoses Not on filedocumented in this encounter Care Teams Supervisor Long Goods Relationship Specialty Start Date End Date Lurdes Thomas MD PCP - General 06/18/14 12/11/19 documented as of this encounter
--- OUTSIDE RECORDS SUMMARY | 2021-12-28 12:14 | XMS_ITS | Encounter Summary ---
:1955 Author Organization [facility] Address [address] [place] [address] Care Team Providers Name Role Phone Lurdes Thomas MD Primary Care Provider Encounter Details Date Type Department Care Team Description 09/25/2014 Notes/Orders [facility] Millie Pedraza MD [address] [place], [place] [address] [facility] N [id number] (Wo rk) Social History Tobacco Use Types Packs/Day Years Used Date Smoking Tobacco: Never Smokeless Tobacco: Never Alcohol Use Standard Drinks/Week Comments Yes 0 (1 standard drink = 0.6 oz pure alcoho l) Sex Assigned at Date Recorded Not on file documented as of this encounter Progress Notes Milile Pedraza MD - 09/25/2014 6:56 AM CDT DBS TEAM MEETING 09/24/14: DBS surgery scheduled through Dr. Rowland, denied by pt insurance. Dr Rowland is writing a letter. Pt needs fu PT, did not answer when PT called to schedule. documented in this encounter Plan of Treatment Not on filedocumented as of this encounter Visit Diagnoses Not on filedocumented in this encounter Care Teams Glost Tile Shader Relationship Specialty Start Date End Date Lurdes Thomas MD PCP - General 06/18/14 12/11/19 documented as of this encounter
--- OUTSIDE RECORDS SUMMARY | 2021-12-28 12:14 | XMS_ITS | Encounter Summary ---
:1955 Author Organization [facility] Address [address] [place] [address] Care Team Providers Name Role Phone Unavailable Primary Care Provider Unavailable Encounter Details Date Type Department Care Team Description 07/22/2008 Office Visit [facility] Occupational [place], Medicine [address] [place] [address] [place] [address] Social History Tobacco Use Types Packs/Day Years Used Date Smoking Tobacco: Never Assessed Sex Assigned at Date Recorded Not on file documented as of this encounter Plan of Treatment Not on filedocumented as of this encounter Visit Diagnoses Not on filedocumented in this encounter
--- OUTSIDE RECORDS SUMMARY | 2021-12-28 12:14 | XMS_ITS | Encounter Summary ---
:1955 Author Organization [facility] Address [address], [place] [address] Care Team Providers Name Role Phone Unavailable Primary Care Provider Unavailable Encounter Details Date Type Department Care Team Description 08/17/2009 Office Visit [facility] Alexey Alvarez MD [address] [place] [address] [place] [address] [phone] (Wo rk) Social History Tobacco Use Types Packs/Day Years Used Date Smoking Tobacco: Never Assessed Sex Assigned at Date Recorded Not on file documented as of this encounter Last Filed Vital Signs Vital Sign Reading Time Taken Comments Blood Pressure 106/68 08/17/2009 8:04 AM CDT Pulse 76 08/17/2009 8:04 AM CDT Temperature - - Respiratory Rate - - Oxygen Saturation - - Inhaled Oxygen Concentration - - Weight 85.8 kg (189 lb 1.4 oz) 08/17/2009 8:04 AM CDT C : 85.8kg Height - - Body Mass Index - - documented in this encounter Progress Notes Alexey Garcia MD - 08/17/2009 12:01 AM CDT Progress Notes signed by Alexey Garcia MD at 08/17/09 [id number] Author: Alexey Garcia MD Service: (none) Author Type: Physician Filed: 09/11/102113 Note Time: 08/17/09 0001 Status: Signed Tobacco Packer: Alexey Garcia MD (Physician) SUBJECTIVE: 54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 He has no side effects. He formerly was with [facility] and his insurance is changed. He has Parkinson's and sees Dr. Phan for its management in [place]. The remainder of the complete ROS is negative. Past history cervical diskectomy Family history mother had onset of heart problems at 69 father at 74 father had diabetes and his last few years Adverse Drug Reactions: see LW Medications: Reviewed.& updated in today's LW > See Medication List in LastWord. Social history 22-year-old stepdaughter and her grandchild. Doesn't smoke occasional alcohol does get regular exercise OBJECTIVE: Vital Signs : Reviewed; See Flowsheet Charting in LastWord. Head: Normocephalic. Eyes: PERRLA, full EOM. External exams normal. Ears: Normal pinnae, canals, and TM's. Nose: Patent, without deformity. Throat: Moist mucous membranes without lesions, erythema, or exudate. Neck: Supple, without masses, lymphadenopathy or tenderness. Respiratory: Normal respiratory effort. Lungs are clear with good breath sounds. No axillary lymphadenopathy. Heart: RR without murmurs, rubs, or gallops. Abdomen: The abdomen was flat, soft and nontender without guarding rebound or masses. Skin normal to inspection and palpation. Patient is alert and oriented ASSESSMENT: Hyperlipidemia Parkinson's PLAN: renew Simvistatin x 1 yr;request previous records. check lipids,ALT,glucose, and vit D; pt needs colonoscopy but has schedule problems with work and will call later in the year to schedule. The patient was discharged ambulatory and in stable condition. *SH~DNS~SOAP documented in this encounter Plan of Treatment Not on filedocumented as of this encounter Visit Diagnoses Not on filedocumented in this encounter
--- OUTSIDE RECORDS SUMMARY | 2021-12-28 12:14 | XMS_ITS | Encounter Summary ---
:1955 Author Organization [employer] Address [address] [place] [address] Care Team Providers Name Role Phone Lurdes Thomas MD Primary Care Provider Reason for Visit Reason Comments Paperwork Encounter Details Date Type Department Care Team Description 09/15/2014 Telephone [facility] Doris Arauz, RN Paperwork [address] [place], [place] [address] Social History Tobacco Use Types Packs/Day Years Used Date Smoking Tobacco: Never Smokeless Tobacco: Never Alcohol Use Standard Drinks/Week Comments Yes 0 (1 standard drink = 0.6 oz pure alcoho l) Sex Assigned at Date Recorded Not on file documented as of this encounter Nursing Notes Maria Esther Phan MD - 09/16/2014 4:25 PM CDT This patient would be on disability without the surgery. At any rate let me know if I can be of help. Shawnee Hilario RN - 09/16/2014 10:46 AM CDT Judi called back, patient did have DBS surgery 09/09 and battery placed this morning. She has a call into the insurance company to try to resolve this. She provided them with Dr. Phan UPDRS off and on motor scores but they were still less than 30 which is often the cut off. They will get Dr. Rowland on the line with insurance company if needed. Patient has not been informed of this as they are trying to get it all cleared up. I asked her to please let us know as programming visits may be an issue too if surgery is not covered. Doris Arauz RN - 09/15/2014 4:59 PM CDT Doris from Dr. Phan office at [facility] called to request ON/OFF results be sent to Judi at Dr. Rowland's office at [facility]. She states that he was denied for DBS by insurance. Faxed ON/OFF testing to Dr. Chaidez office, also called Judi and LM asking he to call us back and let us know when he surgery is. We had him scheduled for September 09. documented in this encounter Plan of Treatment Not on filedocumented as of this encounter Visit Diagnoses Not on filedocumented in this encounter Care Teams Smoking Pipe Liner Relationship Specialty Start Date End Date Lurdes Thomas MD PCP - General 06/18/14 12/11/19 documented as of this encounter
--- OUTSIDE RECORDS SUMMARY | 2021-12-28 12:14 | XMS_ITS | Encounter Summary ---
:1955 Author Organization [facility] Address [address], [place] [address] Care Team Providers Name Role Phone Lurdes Thomas MD Primary Care Provider Reason for Visit Reason Comments Questions Encounter Details Date Type Department Care Team Description 07/09/2014 Telephone [facility] Sheri Pearson, RN Questions [address] [place], [place] [address] Social History Tobacco Use Types Packs/Day Years Used Date Smoking Tobacco: Never Smokeless Tobacco: Never Alcohol Use Standard Drinks/Week Comments Yes 0 (1 standard drink = 0.6 oz pure alcoho l) Sex Assigned at Date Recorded Not on file documented as of this encounter Nursing Notes Sheri Pearson RN - 07/09/2014 1:11 PM CST I spoke with Andrew and he was wondering when he would hear from Dr Rowland's office about scheduling his surgery. I told him that paperwork was faxed to them yesterday and it takes them about a week before he will hear from them to schedule. CAL TECHNOLOGIST GENERALIST documented in this encounter Plan of Treatment Not on filedocumented as of this encounter Visit Diagnoses Not on filedocumented in this encounter Care Teams Surg Nurse Relationship Specialty Start Date End Date Lurdes Thomas MD PCP - General 06/18/14 12/11/19 documented as of this encounter
--- OUTSIDE RECORDS SUMMARY | 2021-12-28 12:14 | XMS_ITS | Encounter Summary ---
:1955 Author Organization [facility] Address [address] [place] [address] Care Team Providers Name Role Phone Lurdes Thomas MD Primary Care Provider Reason for Referral Specialty Diagnoses / Procedures Referred By Contact Refer red To Contact Maria Esther Phan MD [address] [place], [place] [address] Referral ID Status Reason Start Date Expiration Date Visits Requ ested Visits Authorized Reason for Visit Reason Comments Device Check Encounter Details Date Type Department Care Team Description 11/12/2014 Nursing Visit [facility] Doris Arauz, [place] [id number], [place] [address] Social History Tobacco Use Types Packs/Day Years Used Date Smoking Tobacco: Never Smokeless Tobacco: Never Alcohol Use Standard Drinks/Week Comments Yes 0 (1 standard drink = 0.6 oz pure alcoho l) Sex Assigned at Date Recorded Not on file documented as of this encounter Progress Notes Doris Arauz RN - 11/12/2014 1:50 PM CDT Deep Brain Stimulation (DBS) Programming Note: HPI: Andrew Pang is a 59 y.o. with bilateral STN DBS implantation. Surgeon: Dr. Gonzalez Rowland Surgery date/location: [facility], 09/09/14 Battery replacement: None Device type: Activia PC Indication: Parkinson's Disease Update since last visit: Andrew is very pleased with his DBS. DBS had helped him with his freezing andhe was very excited to show how he could walk through doorways without freezing. Demonstrated this afew times. He had been having trouble with his sleeping. He will fall asleep okay, but then walk up at about 4am and have a hard time getting back to sleep, we will ask Dr. Phan if he had any suggestions. He also believes this DBS battery to have moved upward, it is slightly uncomfortable for him.He will call Dr. Rowland's office to get their thoughts. Initial settings: Battery 3.03v on 100% of time. L STN: Case positive, 0 Negative, Amp: 2.2, PW: 60, Rate: 150. No problems found on 1.5v impedence check. Therapy impedence: 1410 on 1.579. Pt analytic programmer range: 2.1-2.7 R STN: 10 Positive, 9 Negative, Amp: 2.1, PW: 60, Rate: 150. No problems found on 1.5v impedence check. Therapy impedence: 1149 on 1.831. Pt analytic programmer range: 1.7-2.5 Final settings: No changes made. Total face to face programming time: 20 min Follow up: 6 month survey visit, cancelled scheduled 3 month visit. Supervising provider: MD Doris Bolaños, RN documented in this encounter Plan of Treatment Scheduled Referrals Name Type Priority Associated Diagnoses Order S chedule DBS PROGRAMMING CONSULT Referral Routine Paralysis agitans (HRC) Ordered: 11/12/2014, (AMB) Expires: 2014 documented as of this encounter Visit Diagnoses Diagnosis Paralysis agitans (HRC) Paralysis agitans documented in this encounter Care Teams Tanning Consultant Relationship Specialty Start Date End Date Lurdes Thomas MD PCP - General 06/18/14 12/11/19 documented as of this encounter
--- OUTSIDE RECORDS SUMMARY | 2021-12-28 12:14 | XMS_ITS | Encounter Summary ---
:1955 Author Organization [facility] Address [address], [place] [address] Care Team Providers Name Role Phone Lurdes Thomas MD Primary Care Provider Reason for Visit Reason Comments Social Service Encounter Details Date Type Department Care Team Description 10/09/2014 Telephone [facility] Fabi Quinones LISW Social Service [address] [place], [place] [address] Social History Tobacco Use Types Packs/Day Years Used Date Smoking Tobacco: Never Smokeless Tobacco: Never Alcohol Use Standard Drinks/Week Comments Yes 0 (1 standard drink = 0.6 oz pure alcoho l) Sex Assigned at Date Recorded Not on file documented as of this encounter Nursing Notes Fabi Beverly LISW - 10/10/2014 10:57 AM CDT Andrew returning call. Asked SW to call his as his schedule was difficult to get calls. Called pt's , Natasha. Dicussed the relationship concerns she and Andrew are having. They are both open to counseling and recognize they need to work on their own issues. Provided names of a therapist Romulo Roth with some familiarity with PD and a well-known clinic in [place]. Natasha stated she had time today to call and inquire about insurance and get an appointment set. She was appreciative of the resources and support from Dr Phan. documented in this encounter Plan of Treatment Not on filedocumented as of this encounter Visit Diagnoses Not on filedocumented in this encounter Care Teams Superintendent Sales Relationship Specialty Start Date End Date Lurdes Thomas MD PCP - General 06/18/14 12/11/19 documented as of this encounter
--- OUTSIDE RECORDS SUMMARY | 2021-12-28 12:14 | XMS_ITS | Encounter Summary ---
:1955 Author [facility] Address [address], [place] [address] Care Team Providers Name Role Phone Lurdes Thomas MD Primary Care Provider Reason for Visit Reason Comments Forms Encounter Details Date Type Department Care Team Description 11/12/2014 Telephone [facility] Doris Arauz, RN Forms [address] [place], [place] [address] Social History Tobacco Use Types Packs/Day Years Used Date Smoking Tobacco: Never Smokeless Tobacco: Never Alcohol Use Standard Drinks/Week Comments Yes 0 (1 standard drink = 0.6 oz pure alcoho l) Sex Assigned at Date Recorded Not on file documented as of this encounter Nursing Notes Doris Arauz RN - 11/12/2014 3:42 PM CDT Spoke with HIM about mailing ON/OFF video to patient per patient request. Authorization paperwork signed. HIM confirmed okay to sent video. Mailed OFF video to pt home address. Told him it was in the mail. documented in this encounter Plan of Treatment Not on filedocumented as of this encounter Visit Diagnoses Not on filedocumented in this encounter Care Teams Business Development Consultant Relationship Specialty Start Date End Date Lurdes Thomas MD PCP - General 06/18/14 12/11/19 documented as of this encounter
--- OUTSIDE RECORDS SUMMARY | 2021-12-28 12:14 | XMS_ITS | Encounter Summary ---
:1955 Author [facility] Address [address] [place] [address] Care Team Providers Name Role Phone Unavailable Primary Care Provider Unavailable Encounter Details Date Type Department Care Team Description 05/04/2009 PN Conversion Only OINTMENT MILL TENDER [address] [place] [address] Social History Tobacco Use Types Packs/Day Years Used Date Smoking Tobacco: Never Assessed Sex Assigned at Date Recorded Not on file documented as of this encounter Plan of Treatment Not on filedocumented as of this encounter Visit Diagnoses Not on filedocumented in this encounter
--- OUTSIDE RECORDS SUMMARY | 2021-12-28 12:14 | XMS_ITS | Encounter Summary ---
:1955 Author Organization [email or web address] Address [address] [place] [address] Care Team Providers Name Role Phone Lurdes Thomas MD Primary Care Provider Reason for Referral Specialty Diagnoses / Procedures Referred By Contact Refer red To Contact Maria Esther Phan MD [address] [place], [place] [address] Referral ID Status Reason Start Date Expiration Date Visits Requ ested Visits Authorized GER CREDIT RISK Reason for Visit Reason Comments CONSULT Encounter Details Date Type Department Care Team Description 06/18/2014 Nursing Visit [facility] Doris Arauz, PD (Parkinson's disease) (Pr imary Dx); [address] [place], [place] [address] Social History Tobacco Use Types Packs/Day Years Used Date Smoking Tobacco: Never Smokeless Tobacco: Never Alcohol Use Standard Drinks/Week Comments Yes 0 (1 standard drink = 0.6 oz pure alcoho l) Sex Assigned at Date Recorded Not on file documented as of this encounter Progress Notes Doris Arauz RN - 06/18/2014 5:16 PM CST Andrew came to [facility] for DBS TAC with his . States he last took medications at 8pm the night before and feels like he is in an off state. He was in a wheelchair upon arrival, when on he walksunaided. States he was first diagnoised about 7 years ago (2007), but first noticed symptom 3-4 years before diagnosis. Takes 1100mg-1200mg of levodopa per day. 1.5 tabs of CR for first dose, then 1 tab TID of CR 50/200,along with comtan QID, and then IR 25/100 2 tabs per day PRN (can take up to 3 tabs per day PRN). Hestates his most bothersome symptoms is speech and freezing. Feels symptoms are worse on his right hand and he is right hand dominant. He feel levodopa helps with his freezing, although still has some freezing when on. He feels he does not have any dyskinesia now, since starting amantadine. He also take the neupro patch 8mg. He feel off about 40% of the day, especially in the evenings after 7pm. He had neuropsych with Dr. Ramirez. OFF score: 18 Took 1 CR, comtan, and IR, became on after 1.5 hours. ON score: 6 UPDRS ADL: 17 Carb/levo: IR 300mg PRN Carb/levo CR: 900mg MoCA: Midi: 0 Vargas: 15 GER CREDIT RISK documented in this encounter Plan of Treatment Scheduled Referrals Name Type Priority Associated Diagnoses Order S angélica [facility] NURSING Referral Routine Paralysis agitans (HRC) Ordered: 06/20/2014, CONSULT (AMB) Expires: 06/20 documented as of this encounter Visit Diagnoses Diagnosis PD (Parkinson's disease) ([facility]C) - Primary Paralysis agitans Paralysis agitans (HRC) Paralysis agitans documented in this encounter Care Teams Manager Practice Relationship Specialty Start Date End Date Lurdes Thomas MD PCP - General 06/18/14 12/11/19 documented as of this encounter
--- OUTSIDE RECORDS SUMMARY | 2021-12-28 12:14 | XMS_ITS | Encounter Summary ---
:1955 Author Organization [facility] Address [address], [place] [address] Care Team Providers Name Role Phone Lurdes Thomas MD Primary Care Provider Reason for Visit Reason Comments Other Encounter Details Date Type Department Care Team Description 07/08/2014 Nursing Visit [facility] Doris Arauz, PD (Parkinson's [address] disease) ( Primary Dx) [place] [address] Social History Tobacco Use Types Packs/Day Years Used Date Smoking Tobacco: Never Smokeless Tobacco: Never Alcohol Use Standard Drinks/Week Comments Yes 0 (1 standard drink = 0.6 oz pure alcoho l) Sex Assigned at Date Recorded Not on file documented as of this encounter Progress Notes Doris Arauz, RN - 07/08/2014 2:30 PM CST Patient seen for a nursing visits as part of their DBS results appointment. Patient has been referred for DBS surgical consultation for bilateral DBS with Dr. Rowland. DBS Patient Guide to Care given to patient and portions reviewed in detail. Review and discussion of patients goals completed. Restated that his freezing might not improved with DBS surgery. Discussed what DBS can help and not help for symptoms. Reviewed things to think about and prepare for prior to having DBS surgery. Encouraged patient/family to prepare a list of questions prior to surgical consultation. Review of the DBS surgery referral process and estimated timeline for consultation. Asked patient to contact us if they have not heard from the surgeons office with a week. Instructed patient to call as soon as they have a surgery date so all of the post operative visits can be scheduled. DBS referral and assessments as well as demographic information faxed to Dr. Gonzalez Rowland. Total face to face time of visit: 15 min Supervising MD in the building: Dr. Kp Phan. MD Doris Arauz, RN LE FUSION CONSULTANT documented in this encounter Plan of Treatment Not on filedocumented as of this encounter Visit Diagnoses Diagnosis PD (Parkinson's disease) (HRC) - Primary Paralysis agitans documented in this encounter Care Teams Conference Service Coordinator Relationship Specialty Start Date End Date Lurdes Thomas MD PCP - General 06/18/14 12/11/19 documented as of this encounter
--- OUTSIDE RECORDS SUMMARY | 2021-12-28 12:14 | XMS_ITS | Encounter Summary ---
:1955 Author Organization [facility] Address [address] [address] Care Team Providers Name Role Phone No Primary/Referring, Phy Primary Care Provider Unavailable Reason for Visit Reason Comments Questions Encounter Details Date Type Department Care Team Description 06/06/2014 Telephone [facility] Doris Arauz, RN Questions [address] [place], [place] [address] Social History Tobacco Use Types Packs/Day Years Used Date Smoking Tobacco: Never Smokeless Tobacco: Never Alcohol Use Standard Drinks/Week Comments Yes 0 (1 standard drink = 0.6 oz pure alcoho l) Sex Assigned at Date Recorded Not on file documented as of this encounter Nursing Notes Doris Arauz RN - 06/06/2014 4:49 PM CST Andrew called asking for number of [employer] Out Driller Helper. Emailed our reps and Lyric stated it was okay to give him her number: [phone] Called Andrew and gave him her number. NING ROOM HAND documented in this encounter Plan of Treatment Not on filedocumented as of this encounter Visit Diagnoses Not on filedocumented in this encounter Care Teams Animal Care Service Worker Relationship Specialty Start Date End Date No Primary/Referring, Lupilloy PCP - General 01/22/14 documented as of this encounter
--- OUTSIDE RECORDS SUMMARY | 2021-12-28 12:15 | XMS_ITS | Encounter Summary ---
:1955 Author Organization [facility] Address [address] [place] [address]. [place] [address] Care Team Providers Name Role Phone Lurdes Thomas MD Primary Care Provider [phone] Reason for Visit Reason Onset Date Comments Refill Request 11/17/2014 PRAVASTATIN 80MG Encounter Details Date Type Department Care Team Description 11/17/2014 Refill [facility] Eag Lurdes Rojas Refill Request 14[address] [facility] MD [place] (PRAVASTATIN 80MG) [place] [phone] [facility] [phone] [place] [address] (Wo rk) Social History Tobacco Use Types Packs/Day Years Used Date Never Smoker Smokeless Tobacco: Never Used Alcohol Use Standard Drinks/Week Comments Yes 0 (1 standard drink = 0.6 oz pure alcoho l) not often Alcohol Habits Answer Date Recorded How often do you have a drink containing alcohol? Not asked How many drinks containing alcohol do you have on a typical Not asked day when you are drinking? How often do you have six or more drinks on one occasion? No t asked Comment: not often 04/12/2010 Sex Assigned at Date Recorded Male 08/05/2020 2:57 PM CDT documented as of this encounter Miscellaneous Notes Telephone Encounter - Sole Cates RN - 11/19/2014 3:45 PM CDT Medication is being filled for 1 time refill only due to: Patient needs labs lipids, ordered. Sole Cates RN Telephone Encounter - Lucina Velasquez - 11/19/2014 9:52 AM CDT Called patient and scheduled him for a fasting lab appointment for next week on 11/25. Please send refill to patients pharmacy. Telephone Encounter - Cindy Sal - 11/17/2014 5:47 PM CDT Routing refill request to station because: Needs fasting labs Can you call to ask pt schedule poss physical or FASTING LAB ONLY APPOINTMENT? And then, OK to reroute to refill pool. Cindy Sal RN Telephone Encounter - Julisa Hayden - 11/17/2014 2:47 PM CDT PRAVASTATIN 80MG Last Written Prescription Date: 08/20/2014 Last Fill Quantity: 90, # refills: 0 Last Office Visit with [facility] primary care provider: 08/25/2014 CHOL 178 09/20/2012 HDL 66 09/20/2012 LDL 95 09/20/2012 TRIG 83 09/20/2012 CHOLHDLRATIO 2.7 09/20/2012 documented in this encounter Plan of Treatment Not on filedocumented as of this encounter Visit Diagnoses Diagnosis Hyperlipidemia LDL goal < 130 - Primary Other and unspecified hyperlipidemia documented in this encounter Care Teams Follow Up Specialist Relationship Specialty Start Date End Date Lurdes Thomas MD PCP - General Internal Medicine 06/11/14 12/16/20 documented as of this encounter
--- OUTSIDE RECORDS SUMMARY | 2021-12-28 12:15 | XMS_ITS | Encounter Summary ---
:1955 Author Organization [facility] Address [address] [place] [address]. [place] [address] Care Team Providers Name Role Phone Lurdes Thomas MD Primary Care Provider [phone] Reason for Visit Reason Comments Recheck Medication Encounter Details Date Type Department Care Team Description 02/12/2015 Office Visit [facility] Lurdes Thomas Back pain (Primary Dx); Uzair Laughlin MD Hyperlipidemia LDL goal < 130; [address] Prediabetes; [place] [phone] [place] Vitamin D deficiency; [phone] [address] [facility] Erectile d ysfunction; RD Screening for colon cancer; [place], [place] Screening for p rostate cancer [address] Social History Tobacco Use Types Packs/Day Years [...] PM CDT documented as of this encounter Last Filed Vital Signs Vital Sign Reading Time Taken Comments Blood Pressure 100/62 02/12/2015 9:50 AM CDT Pulse 74 02/12/2015 9:50 AM CDT Temperature 36.3 ??C (97.4 ??F) 02/12/2015 9:50 AM CDT Respiratory Rate - - Oxygen Saturation - - Inhaled Oxygen Concentration - - Weight 92.7 kg (204 lb 6.4 oz) 02/12/2015 9:50 AM CDT Height 188 cm (6' 2) 02/12/2015 9:50 AM CDT Body Mass Index 26.24 02/12/2015 9:50 AM CDT documented in this encounter Patient Instructions Patient InstructionsSerumLurdes MD - 02/12/2015 10:23 AM CDT 1. Stop pravastatin for 2 weeks - if no improvement, call or mychart and will order physical therapy 2. Continue ibuprofen as needed - could take up to 600 mg every 6 hours 3. Heat as needed 4. Labs today: diabetes screen, prostate cancer screen and vitamin D levels 5. Return stool test to screen for colon cancer documented in this encounter Progress Notes Lurdes Thomas MD - 02/12/2015 9:53 AM CDT SUBJECTIVE: Andrew Pang is a 59 year old male who presents to clinic today for the following health issues: Medication Followup of HCTZ and Pravachol ?? Taking Medication as prescribed: NO ?? Side Effects: Back pain from Pravachol ?? Medication Helping Symptoms: Stopped HCTZ because swelling in foot is resolved. Back pain - started in August. Worse in the mornings, but lasts all day. Lower back - initially just the right, now both sides. Pain is constant - worse with bending or moving. Better with sitting. Thought initially might be due to walking funny with the Parkinson's. No pain into legs. No weakness in legs. History of spinal surgery 15 years and feels very different. Stopped pravastatin last Monday. Wasn't sure if that was the cause. Has tried ibuprofen - takes 600 mg typically 1-2 times a day. Helps reduce the pain. Massage did not help. Swelling improved - stopped HCTZ last Monday. Parkinson's disease: had deep brain stimulator placed in the spring. Symptoms considerably better. Very pleased with the results. Erectile dysfunction: has responded to Viagra. No side effects. Problem list and histories reviewed & adjusted, as indicated. Additional history: as documented ROS: A 8 point review of systems was obtained and was otherwise negative Problem list, Medication list, Allergies, and Medical/Social/Surgical histories reviewed in [facility] andupdated as appropriate. OBJECTIVE: BP 100/62 mmHg Pulse 74 Temp(Src) 97.4 ??F (36.3 ??C) (Tympanic) Ht 6' 2 (1.88 m) Wt 204 lb6.4 oz (92.715 kg) BMI 26.23 kg/m2 General Appearance: healthy, alert and no distress Eyes: no discharge, erythema. Normal pupils. Neck: Supple. No adenopathy, no asymmetry, masses, or scars and thyroid normal to palpation Respiratory: lungs clear to auscultation - no rales, rhonchi or wheezes. Cardiovascular: regular rate and rhythm, normal S1 S2, no S3 or S4 and no murmur, click or rub. No peripheral edema. Musculoskeletal: tenderness in right > left paraspinal muscles in lumbar area. Negative straight leg raise. Normal strength in bilateral lower extremities Skin: no rashes or lesions. Well perfused and normal turgor. Diagnostic Test Results: Results for orders placed or performed in visit on 02/12/15 Glucose Result Value Ref Range Glucose 94 70 - 99 mg/dL PSA, screen Result Value Ref Range PSA 0.50 0 - 4 ug/L ASSESSMENT/PLAN: (724.5) Back pain (primary encounter diagnosis) Comment: exam very consistent with MSK pain. Pt very concerned about statin Plan: - will stop statin for 2 weeks, if no improvement recommend restart statin - heat to back - if not improving,will get set up with PT - pt will call for order (272.4) Hyperlipidemia LDL goal < 130 Comment: concerned about statin causing back pain Plan: - will try stopping for 2 weeks and see if back pain improves - if does not improve, will restart - if does improve, would recommend switch to crestor (790.29) Prediabetes Comment: normal on recheck today Plan: Glucose - monitor every 1-2 years (268.9) Vitamin D deficiency Comment: awaiting results Plan: Vitamin D Deficiency (607.84) Erectile dysfunction Plan: sildenafil (VIAGRA) 50 MG tablet (V76.51) Screening for colon cancer Plan: Fecal colorectal cancer screen (FIT) (V76.44) Screening for prostate cancer Plan: PSA, screen Follow up with Provider - annual visit and as needed Lurdes Thomas [facility]ZA[facility] documented in this encounter Nursing Notes Tamy Leahy LPN - 02/12/2015 9:52 AM CDT Chief Complaint Patient presents with ??? Recheck Medication Initial BP 100/62 mmHg Pulse 74 Temp(Src) 97.4 ??F (36.3 ??C) (Tympanic) Ht 6' 2 (1.88 m) Wt 204 lb 6.4 oz (92.715 kg) BMI 26.23 kg/m2 Estimated body mass index is 26.23 kg/(m^2) as calculated from the following: Height as of this encounter: 6' 2 (1.88 m). Weight as of this encounter: 204 lb 6.4 oz (92.715 kg). BP completed using cuff size: farhan Leahy LPN documented in this encounter Plan of Treatment Not on filedocumented as of this encounter Procedures Procedure Name Priority Date/Time Associated Diagnosis Comme nts VITAMIN D DEFICIENCY Routine 02/12/2015 10:25 Vitamin D defici ency Results for this SCREENING AM CDT procedure are i n the results section. PROSTATE SPECIFIC Routine 02/12/2015 10:25 Screening for Resul ts for this ANTIGEN SCREEN AM CDT prostate cancer procedure are in the results section. GLUCOSE Routine 02/12/2015 10:25 Prediabetes Results for this AM CDT procedure are i n the results section. documented in this encounter Results PSA, screen (02/12/2015 10:25 AM CDT) P athologist Signature PSA 0.50 0 - 4 ug/L [facility] Specimen Anatomical Collection Method Collection Time Receive d Time (Source) Location / / Volume Laterality Blood specimen 02/12/2015 10:25 5 (specimen) AM CDT 10:30 AM CDT Lurdes Thomas MD LAB - BLOOD ORDERABLES Performing Organization Address City/State/ZIP Code Phon e Number [facility] [address] [place] [address] [facility] [address] [place] [place] [address], [place] [phone] Vitamin D Deficiency (02/12/2015 10:25 AM CDT) P athologist Signature Vitamin D 29 20 - 75 [facility] Deficiency ug/L [place] [facility] Comment: Season, race, dietary intake, and treatm ent affect the concentration of 39-gkxigie-Cszcmtc D. Values may decrea se during winter months and increase during summer months. Values 20-29 ug/L may indicate Vitamin D insufficiency and values <20 ug/L may indicate Vitami n D deficiency. Vitamin D determination is routinely pe rformed by an immunoassay specific for 25 hydroxyvitamin D3. ??If an individua l is on vitamin D2 (ergocalciferol) supplementation, please specify 25 [place] v itamin D2 and D3 level determination by LCMSMS test VITD23. Specimen Anatomical Collection Method Collection Time Receive d Time (Source) Location / / Volume Laterality Blood specimen 02/12/2015 10:25 5 (specimen) AM CDT 10:30 AM CDT Lurdes Thomas MD LAB - BLOOD ORDERABLES Performing Organization Address City/State/ZIP Code Phon e Number [facility] [address] [place] [address] [facility] Glucose (02/12/2015 10:25 AM CDT) athologist Signature Glucose 94 70 - 99 [facility] mg/dL [facility] Specimen Anatomical Collection Method Collection Time Receive d Time (Source) Location / / Volume Laterality Blood specimen 02/12/2015 10:25 5 (specimen) AM CDT 10:30 AM CDT Lurdes Thomas MD LAB - BLOOD ORDERABLES Performing Organization Address City/State/ZIP Code Phon e Number [facility] [address] [place] [address] documented in this encounter Visit Diagnoses Diagnosis Back pain - Primary Backache, unspecified Hyperlipidemia LDL goal < 130 Other and unspecified hyperlipidemia Prediabetes Other abnormal glucose Vitamin D deficiency Unspecified vitamin D deficiency Erectile dysfunction Impotence of organic origin Screening for colon cancer Special screening for malignant neoplasm s, colon Screening for prostate cancer Special screening for malignant neoplasm of prostate documented in this encounter Care Teams Crew Foreman Relationship Specialty Start Date End Date Lurdes Thomas MD PCP - General Internal Medicine 06/11/14 12/16/20 documented as of this encounter
--- OUTSIDE RECORDS SUMMARY | 2021-12-28 12:15 | XMS_ITS | Encounter Summary ---
:1955 Author Organization [facility] Address [address] [place] [address]. [place] [address] Care Team Providers Name Role Phone Lurdes Thomas MD Primary Care Provider [phone] Reason for Visit Reason Onset Date Comments Refill Request 04/15/2016 PRAVASTATIN 80MG Encounter Details Date Type Department Care Team Description 04/15/2016 Refill [facility] Eag an Lurdes Thomas Refill Request 14[address] [facility] MD [place] (PRAVASTATIN 80MG) [place] [phone] [facility] [phone] [address] (Wo rk) Social History Tobacco Use [...] this encounter Miscellaneous Notes Telephone Encounter - Lurdes Thomas MD - 04/15/2016 4:37 PM ORTHOPEDIC TECH Mychart sent telling patient cannot continue to fill medications without visit. Lurdes Thomas MD Internal Medicine/Pediatrics OPEDIC TECH Telephone Encounter - Chanell Villa RN - 04/15/2016 4:30 PM ORTHOPEDIC TECH Made multiple attempts(LM & MC message) from October advising pt that he is due for an OV. Pt haven't responded. Routing refill request to provider for review/approval because: Hawa given x1 and patient did not follow up, please advise Chanell.Liliam pants busheler Nurse OPEDIC TECH Telephone Encounter - Genie Mello - 04/15/2016 4:28 PM CST PRAVASTATIN 80MG Last Written Prescription Date: 10/23/2015 Last Fill Quantity: 90, # refills: 1 Last Office Visit with [facility] or [facility] prescribing provider: 02/12/2015 CHOL 219 11/25/2014 HDL 65 11/25/2014 LDL 123 11/25/2014 TRIG 153 11/25/2014 CHOLHDLRATIO 3.4 11/25/2014 OPEDIC TECH documented in this encounter Plan of Treatment Not on filedocumented as of this encounter Visit Diagnoses Diagnosis Hyperlipidemia with target LDL less than 130 - Primary Other and unspecified hyperlipidemia documented in this encounter Care Teams Director Of Partnerships Relationship Specialty Start Date End Date Lurdes Thomas MD PCP - General Internal Medicine 06/11/14 12/16/20 documented as of this encounter
--- OUTSIDE RECORDS SUMMARY | 2021-12-28 12:15 | XMS_ITS | Encounter Summary ---
:1955 [facility] Address [address] [place] [address] Care Team Providers Name Role Phone Unavailable Primary Care Provider Unavailable Encounter Details Date Type Department Care Team Description 12/04/2007 Hospital Encounter [id number] Nela Soriano, RN [address] [place], [place] [address] Social History Tobacco Use Types Packs/Day Years Used Date Smoking Tobacco: Never Assessed Sex Assigned at Date Recorded Not on file documented as of this encounter Medications at Time of Discharge Medication Sig Dispensed Refills Start Date End Date unknown medication Indications: PN: 0 07/31/2007 08/17/2009 documented as of this encounter Plan of Treatment Not on filedocumented as of this encounter Visit Diagnoses Not on filedocumented in this encounter
--- OUTSIDE RECORDS SUMMARY | 2021-12-28 12:15 | XMS_ITS | Encounter Summary ---
:1955 Author Organization [facility] Address [address] [place] [address] Care Team Providers Name Role Phone Unavailable Primary Care Provider Unavailable Encounter Details Date Type Department Care Team Description 08/23/2007 Therapy CONV METH SP Jasbir Laughlin JUVENILE CORRECTIONS OFFICER [address] [facility] Liliam Joshi N [phone] (Wo rk) Social History Tobacco Use Types Packs/Day Years Used Date Smoking Tobacco: Never Assessed Sex Assigned at Date Recorded Not on file documented as of this encounter Progress Notes Bárbara Laughlin SLP - 08/23/2007 12:01 AM CDT Progress Notes signed by Bárbara Laughlin CCC-JB at 08/23/07 1319 Author: APRIL Keith Service: (none) Author Type: Speech and Language Pathologist Filed: 09/11/10 0322 Note Time: 08/23/07 0001 Status: Signed Larriman Helper: Bárbara Laughlin CCC-JUVENILE CORRECTIONS OFFICER (Speech and Language Pathologist) [facility] [place] Speech Pathology - Parkinson's Disease Evaluation Primary Diagnosis: Parkinson's disease. This is patient's initial outpatient evaluation. Initial Certification Dates: 08/23/2007 to 09/21/07 Referring Physician: Maria Esther Phan MD. Onset/Exacerbation Date: 08/21/2007 Date of Evaluation: 08/23/2007 SUBJECTIVE History of Current problem/Concerns: Communication - He feels that he may not project his voice as well as previously. His often asks him to repeat. Pain: None reported. Past Medical History: Reviewed in Electronic Medical Records. Medications: Reviewed in Electronic Medical Records. Drug Allergies: Reviewed in Electronic Medical Records. Texture diet at time of this evaluation: Regular texture. Liquid diet at time of this evaluation: Any liquids. Previous Speech Therapy: None. Hand Dominance: Right. Hearing Acuity: WNL. Communication Status: Mild impairment. Glasses: No. Smoking: No. Education: High school. 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 Marital Status: . Living Arrangement: Lives with spouse. Safety in living environment: Patient feels safe in current living environment. Vulnerable adult assessment = low risk OBJECTIVE Behavioral Characteristics: Alert. Motivated. Cooperative. Tests Administered: [facility] Assessment of Communication in Parkinson's Disease - using Computerized Speech Lab: * Oral Speech Mechanism -At rest: Within normal limits. -Lingual ROM: Within normal limits. -Labial ROM: Within normal limits. -Tremor: Tongue. -Diadochokinesis: Within normal limits. -Facial Expression: Mild mask. -Drooling: Absent. -Swallow of water: Within normal limits. 3 Speech and Voice: -Sustained Phonation /a/ (20 seconds seconds): Within normal limits. -Breath Support and Control: Mild impairment. Reduced respiratory support for voice. -Conversational voice loudness 58 dB: Moderate impairment. Monoloudness. -Reading voice loudness 61 dB: Mild impairment. -Conversational pitch range 86 Hz: Moderate impairment. Monotone. -Reading pitch range 99 Hz: Moderate impairment. Monotone. -Maximum pitch range: 215 Hz = WNL. -Articulation: Within normal limits. -Voice quality: Within normal limits. RAP - within normal limits - 0.14%. -Resonance: Within normal limits. -Speech Rate: Within normal limits. -Overall Speech Intelligibility: Mild impairment. Client is able to improve speech/voice parameters with cues. Cognitive/Linguistic Screening: -Expressive Language: Within normal limits. -Orientation to time/place/situation: 6/6. Within normal limits. -Immediate Verbal Memory: 5/5. Within normal limits. -Recent Verbal Memory: 1515. Within normal limits. -Remote Verbal Memory: 5/5. Within normal limits. Voice Handicap Index: -Functional Handicap: 6 - Within normal limits. -Physical Handicap: 8 - Within normal limits. - Emotional Handicap: 3 - Within normal limits. -Total Handicap: 17 - Within normal limits. ASSESSMENT Therapist Impression: Mild dysarthria 784.5. Barriers to Learning: None apparent. Prognosis: Good for stated goals. PLAN Plan of care sent to MD for signature. At discharge, viewable on ScanDoc. Recommend 1:1 Speech Therapy: No ongoing speech therapy recommended at this time. Frequency/Duration: One time evaluation and treatment only at [facility] [place]. Retail Customer Service Specialist goals: -Maximize speech and voice for functional communication. Short Term goals: -Independent in use of speech/voice home program. -Learn exercises for pitch flexibility and loudness. Patient Education: Results of the evaluation were reviewed with the patient/family. Risks, benefits and alternatives to treatment have been explained. Educational Handouts provided in the following areas: -Exercises to improve voice loudness. -Exercises to improve pitch range and inflection. -Strategies to improve voice hygiene. Discharge Plan: Patient will be discharged from speech therapy when goals are met. Goals met today. Consent: Plan of care generated with patient and patient consents to treatment. CC: message sent to: Maria Esther Phan MD TOTAL VISIT TIME: 60 minutes. Electronically signed by: Bárbara Laughlin MA/LAVELL-JUVENILE CORRECTIONS OFFICER, [id number], 08/23/2007 *SH~REHAB~SPARKEVAL~ Shorthand Note Completed on: 08/23/2007 1:19 PM documented in this encounter Plan of Treatment Not on filedocumented as of this encounter Visit Diagnoses Not on filedocumented in this encounter
--- OUTSIDE RECORDS SUMMARY | 2021-12-28 12:15 | XMS_ITS | Encounter Summary ---
:1955 Author Organization [facility] Address [address] [place] [address]. [place] [address] Care Team Providers Name Role Phone Lurdes Thomas MD Primary Care Provider Reason for Visit Reason Onset Date Comments Panel Management 06/25/2015 Encounter Details Date Type Department Care Team Description 06/25/2015 Telephone [facility] Lurdes Oh Panel Management [address] [facility] [place] [address] [facility] [phone] [address] [place], [place] [address] (Wo rk) Social History Tobacco Use [...] this encounter Miscellaneous Notes Telephone Encounter - Lucina Velasquez - 07/30/2015 10:56 AM CST Mailed patient a reminder letter regarding the FIT test. X DEVOPS ENGINEER Telephone Encounter - Tamy Leahy LPN - 06/25/2015 2:13 PM CST Panel Management Review Patient has the following on his problem list: none Composite cancer screening Chart review shows that this patient is due/due soon for the following Fecal Colorectal (FIT) Summary: Patient is due/failing the following: FIT Action needed: FIT test completion Type of outreach: [employer] message. Reminding patient to complete FIT test. Questions for provider review: None Tamy Leahy LPN Chart routed to Care Team . X DEVOPS ENGINEER documented in this encounter Plan of Treatment Not on filedocumented as of this encounter Visit Diagnoses Not on filedocumented in this encounter Care Teams Watch Band Assembler Relationship Specialty Start Date End Date Lurdes Thomas MD PCP - General Internal Medicine 06/11/14 12/16/20 documented as of this encounter
--- OUTSIDE RECORDS SUMMARY | 2021-12-28 12:15 | XMS_ITS | Encounter Summary ---
:1955 Author Organization [facility] Address [address] [facility] [place] [address] Care Team Providers Name Role Phone Lurdes Thomas MD Primary Care Provider [phone] Reason for Visit (Routine) - Closed Specialty Diagnoses / Procedures Referred By Contact Refer red To Contact Radiology / Radiology. Diagnoses R#NA, Written Order, SB Doris, Not a read and call. Sh Ct Scan Procedures CT LUMBAR SPINE WO [address] [phone] Phone: Referral ID Status Reason Start Date Expiration Date Visits Requ ested Visits Authorized [id number] Closed 08/31/2015 08/30/2016 1 1 Encounter Details Date Type Department Care Team Description 08/31/2015 Hospital Encounter [facility] [place], So re low back pain [facility] Maria Esther Amaro MD [address] [facility] [id number] [place] [id number] Social History Tobacco Use Types Packs/Day Years [...] PM CDT documented as of this encounter Medications at Time of Discharge Medication Sig Dispensed Refills Start Date End Date amantadine (SYMMETREL) 100 Take 100 mg by 0 MG capsule mouth 2 times daily carbidopa-levodopa (SINEMET Take 1 tablet by 0 CR) 50-200 MG per mouth 4 times tabletIndications: daily Takes at Parkinson disease (H) 0600 1000 1430 1900 carbidopa-levodopa Take 1 tablet by 0 (SINEMET) 25-100 MG per mouth 3 times tabletIndications: daily as needed Parkinson disease (H) citalopram (CELEXA) 10 MG Take 10 mg by 0 tabletIndications: mouth daily. Parkinson disease (H) hydrochlorothiazide Take 1 tablet (25 90 tablet 3 5 (HYDRODIURIL) 25 MG mg) by mouth daily tabletIndications: Leg swelling omeprazole 20 MG tablet Take 20 mg by 30 tablet 1 5 mouth daily as needed Take 30-60 minutes before a meal. sildenafil (VIAGRA) 50 MG Take 1 tablet (50 24 tablet 3 tabletIndications: Erectile mg) by mouth daily dysfunction as needed for erectile dysfunction pravastatin (PRAVACHOL) 80 Take 1 tablet (80 90 tablet 1 10/20/2015 MG tabletIndications: mg) by mouth daily Hyperlipidemia with target LDL less than 130 documented as of this encounter Plan of Treatment Not on filedocumented as of this encounter Procedures Procedure Name Priority Date/Time Associated Diagnosis Comme nts CT LUMBAR SPINE W/O Routine 08/31/2015 4:03 PM Severe low back pain Results for this CONTRAST CDT procedure are i n the results section. documented in this encounter Results CT Lumbar Spine w/o Contrast (08/31/2015 4:03 PM CDT) Anatomical Region Laterality Modality Spine, SUBRAD CT MSK, UMP CT SPINE Compu werner Tomography Specimen (Source) Anatomical Location Collection Method / Collectio n Time Received Time / Laterality Volume Impressions 08/31/2015 8:52 PM CDT IMPRESSION: Degenerative changes of the lower lumbar spine with no disc herniation seen. This is most promi nent at L4-L5 where there is moderate right and mild left neural fora padmini stenosis. No other area of stenosis is demonstrated. VONNIE GRIFFIN MD Narrative 08/31/2015 8:[address] LUMBAR SPINE WITHOUT CONTRAST ?? 08/31/2015 4:03 PM HISTORY: One year of right low back pain . Parkinson's disease. COMPARISON: None. TECHNIQUE: 0.2 cm helical imaging was pe rformed from the mid aspect of T12 to the upper sacrum. Sagittal and co ben reformatting was performed. FINDINGS: There are 5 lumbar type verteb ral bodies. There is a mild to moderate left convexity curvature of the mid to lower lumbar spine. Vertebral body alignment is otherwise no rmal with no fracture or pars defect demonstrated. There is a large Sc hmorl's node in the inferior endplate of the L4 vertebral body with s maller Schmorl's nodes in the superior endplate of L5 and the inferior endplate of L3. No other osseous abnormality is seen. There is ca lcification in the adjacent vascular structures. No other soft tissu e pathology is noted. Findings by specific level: T12-L1, L1-L2, and L2-L3: The disc heigh ts are well-preserved. No disc bulge or herniation is seen and no steno sis is present. The facet joints are unremarkable. L3-L4: The disc height is well-preserved . There is a mild disc bulge with no focal herniation seen. The facet joints are unremarkable. No stenosis is demonstrated. L4-L5: There is marked disc height loss on the right. There is a moderate disc bulge and mild marginal os teophyte formation with no focal disc herniation seen. Moderate rig ht and mild left facet joint degenerative changes are present. No ruben tral canal stenosis is present. There is moderate right and mil d left neural foraminal stenosis. L5-S1: There is mild diffuse disc height loss. There is a mild to moderate disc bulge with no focal hernia tion seen. There is mild calcification along the posterior annula r fibers. No stenosis is seen. The facet joints are unremarkable. Procedure Note Vonnie Griffin MD - 08/31/2015Fo rmatting of this note might be different from the original. CT LUMBAR SPINE WITHOUT CONTRAST 08/31/19 16 4:03 PM HISTORY: One year of right low back pain . Parkinson's disease. COMPARISON: None. TECHNIQUE: 0.2 cm helical imaging was pe rformed from the mid aspect of T12 to the upper sacrum. Sagittal and co ben reformatting was performed. FINDINGS: There are 5 lumbar type verteb ral bodies. There is a mild to moderate left convexity curvature of the mid to lower lumbar spine. Vertebral body alignment is otherwise no rmal with no fracture or pars defect demonstrated. There is a large Sc hmorl's node in the inferior endplate of the L4 vertebral body with s maller Schmorl's nodes in the superior endplate of L5 and the inferior endplate of L3. No other osseous abnormality is seen. There is ca lcification in the adjacent vascular structures. No other soft tissu e pathology is noted. Findings by specific level: T12-L1, L1-L2, and L2-L3: The disc heigh ts are well-preserved. No disc bulge or herniation is seen and no steno sis is present. The facet joints are unremarkable. L3-L4: The disc height is well-preserved . There is a mild disc bulge with no focal herniation seen. The facet joints are unremarkable. No stenosis is demonstrated. L4-L5: There is marked disc height loss on the right. There is a moderate disc bulge and mild marginal os teophyte formation with no focal disc herniation seen. Moderate rig ht and mild left facet joint degenerative changes are present. No ruben tral canal stenosis is present. There is moderate right and mil d left neural foraminal stenosis. L5-S1: There is mild diffuse disc height loss. There is a mild to moderate disc bulge with no focal hernia tion seen. There is mild calcification along the posterior annula r fibers. No stenosis is seen. The facet joints are unremarkable. IMPRESSION: Degenerative changes of the lower lumbar spine with no disc herniation seen. This is most promi nent at L4-L5 where there is moderate right and mild left neural fora padmini stenosis. No other area of stenosis is demonstrated. VONNIE GRIFFIN MD Maria Esther Phan MD IMG CT ORDERABLES documented in this encounter Visit Diagnoses Diagnosis Severe low back pain Lumbago documented in this encounter Care Teams Battery Loader Relationship Specialty Start Date End Date Lurdes Thomas MD PCP - General Internal Medicine 06/11/14 12/16/20 documented as of this encounter
--- OUTSIDE RECORDS SUMMARY | 2021-12-28 12:15 | XMS_ITS | Encounter Summary ---
:1955 Author Organization [facility] Address [address] [place] [address] Care Team Providers Name Role Phone Unavailable Primary Care Provider Unavailable Encounter Details Date Type Department Care Team Description 07/22/2008 PN Conversion Only AIRPORT CONVERSION [address] [place] [address] Social History Tobacco Use Types Packs/Day Years Used Date Smoking Tobacco: Never Assessed Sex Assigned at Date Recorded Not on file documented as of this encounter Plan of Treatment Not on filedocumented as of this encounter Visit Diagnoses Not on filedocumented in this encounter
--- OUTSIDE RECORDS SUMMARY | 2021-12-28 12:15 | XMS_ITS | Encounter Summary ---
:1955 [facility] Address [address] [place] [address] Care Team Providers Name Role Phone Unavailable Primary Care Provider Unavailable Encounter Details Date Type Department Care Team Description 07/30/2007 PN Conversion Only [facility] CONVERSION Social History Tobacco Use Types Packs/Day Years Used Date Smoking Tobacco: Never Assessed Sex Assigned at Date Recorded Not on file documented as of this encounter Plan of Treatment Not on filedocumented as of this encounter Visit Diagnoses Not on filedocumented in this encounter
--- OUTSIDE RECORDS SUMMARY | 2021-12-28 12:15 | XMS_ITS | Encounter Summary ---
:1955 Author Organization [facility] Address [address] [place] [address] Care Team Providers Name Role Phone Unavailable Primary Care Provider Unavailable Encounter Details Date Type Department Care Team Description 05/11/2006 Office Visit [facility]jit [facility] [address] [place] [address] Social History Tobacco Use Types Packs/Day Years Used Date Smoking Tobacco: Never Assessed Sex Assigned at Date Recorded Not on file documented as of this encounter Plan of Treatment Not on filedocumented as of this encounter Visit Diagnoses Not on filedocumented in this encounter
--- OUTSIDE RECORDS SUMMARY | 2021-12-28 12:15 | XMS_ITS | Encounter Summary ---
:1955 Author Organization [facility] Address [address] [place] [address]. [place] [address] Care Team Providers Name Role Phone Lurdes Thomas MD Primary Care Provider Reason for Visit Reason Onset Date Comments Outreach 05/30/2015 [facility] call not require d FIT ordered,[facility] Encounter Details Date Type Department Care Team Description 05/30/2015 Telephone [facility] Lurdes Thomas h ([facility] call not [facility]ER Laughlin MD required FIT MANAGEMENT DEPT [facility] ordered,cnt) [address] [place] [address] [address] [place] [address] [address] [phone] [place], [place] [address] (Wo rk) Social History Tobacco Use [...] PM CDT documented as of this encounter Plan of Treatment Not on filedocumented as of this encounter Visit Diagnoses Not on filedocumented in this encounter Care Teams Straddle Bug Operator Relationship Specialty Start Date End Date Lurdes Thomas MD PCP - General Internal Medicine 06/11/14 12/16/20 documented as of this encounter
--- OUTSIDE RECORDS SUMMARY | 2021-12-28 12:15 | XMS_ITS | Encounter Summary ---
:1955 Author Organization [facility] Address [address] [place] [address] Care Team Providers Name Role Phone Lurdes Thomas MD Primary Care Provider [phone] Encounter Details Date Type Department Care Team Description 10/09/2014 Medical Correspondence [facility] Scan, LETTER FROM [facility], Non-Provider NIECY COOPER, Health Info Elicia CONTRERAS MD-09/20 Srvcs [address] [facility] [address] [place] [address] Social History Tobacco Use Types Packs/Day Years [...] on filedocumented in this encounter Care Teams Airplane Cabin Attendant Relationship Specialty Start Date End Date Lurdes Thomas MD PCP - General Internal Medicine 06/11/14 12/16/20 documented as of this encounter
--- OUTSIDE RECORDS SUMMARY | 2021-12-28 12:15 | XMS_ITS | Encounter Summary ---
:1955 Author Organization [facility] Address [address] [place] [address] Care Team Providers Name Role Phone Lurdes Thomas MD Primary Care Provider [phone] Reason for Visit Auth/Cert - Closed Specialty Diagnoses / Procedures Referred By Contact Refer red To Contact Surgery Diagnoses PARKINSONS DISEASE Sh Periop Services Procedures IMPLANT PULSE GENERATOR SUBCUTANEOUS [address] [place] [address] Phone: Referral ID Status Reason Start Date Expiration Date Visits Requ ested Visits Authorized [id number] Closed 1 1 Encounter Details Date Type Department Care Team Description 09/16/2014 Surgery [facility] Gonzalez Rowland BILATERAL LEAD EXTENSION Southhelena Snider MD AND RIGHT INFRACLAVICULAR Services XX RESIGNED XX PULSE GENERATOR PLACEMENT [address] ([employer]) [address] [place] [address] [place] [address] [phone] Surgery Details Date/Time Status Location OR Service Patient Case Case Traum a Class Class Type Case? 09/16/14 7:30 Posted OR OR M Neurosurgery Same Day AM 32 Surgery Panel 1 Procedure LRB Anes Op Region Wound Class Commen ts BILATERAL LEAD EXTENSION N/A General Chest I-Clean BILATERAL LEAD EXTENSION AND RIGHT INFRACLAVICULAR AND RIGHT INFRACLAVICULAR PULSE GENERATOR PLACEMENT PULSE GENERATOR PLACEMENT ([employer]) ([employer]) Surgeon Surgeon Role Service Panel Gonzalez Rowland MD Primary Neurosurgery 1 Arline Peñaloza APRN PLANT CUSTODIAN Photographic Equipment Inspector Autho rization 1 documented in this encounter Social History Tobacco [...] Sign Reading Time Taken Comments Blood Pressure 119/74 09/16/2014 9:00 AM CDT Pulse - - Temperature 36.2 ??C (97.2 ??F) 09/16/2014 8:48 AM CDT Respiratory Rate 15 09/16/2014 9:00 AM CDT Oxygen Saturation 99% 09/16/2014 9:00 AM CDT Inhaled Oxygen Concentration - - Weight 96.4 kg (212 lb 9.6 oz) 09/16/2014 6:53 AM CDT Height 188 cm (6' 2) 09/16/2014 6:53 AM CDT Body Mass Index 27.3 09/16/2014 6:53 AM CDT documented in this encounter Discharge Summaries Arline Hutson APRN CNP - 09/16/2014 8:46 AM CDT Physician Discharge Summary Patient ID: Andrew Pang [id number] 59 year old 1955 Admit date: 09/16/2014 Discharge date and time: 09/16/2014 Admitting Physician: Gonzalez Rowland MD Discharge Physician: Arline Hutson [facility] Admission Diagnoses: PARKINSONS DISEASE Discharge Diagnoses: Parkinsons disease Admission Condition: good Discharged Condition: good Indication for Admission: Placement of Deep Brain Stimulator extension wires and right infraclavicular pulse generator. Hospital Course: Patient underwent lead extension and pulse generator placement without complication. Patient recovered in Same Day surgery PACU. Tolerable levels of post operative pain and able to discharge home with assist of . Consults: none Significant Diagnostic Studies: none Treatments: Placement of bilateral Deep brain stimulator extension wires and right generator. Discharge Exam: A+Ox3 , Attends , Fluent, Follows, PERRL, TM, BUE 5/5, BLE 5/5, Surgical pain at tolerable level. Disposition: home Patient Instructions: Current Discharge Medication List CONTINUE these medications which have NOT CHANGED Details hydrochlorothiazide (HYDRODIURIL) 25 MG tablet Take 1 tablet (25 mg) by mouth daily Qty: 90 tablet, Refills: 3 Associated Diagnoses: Leg swelling pravastatin (PRAVACHOL) 80 MG tablet Take 1 tablet (80 mg) by mouth daily Qty: 90 tablet, Refills: 0 Associated Diagnoses: Hyperlipidemia LDL goal < 130 rotigotine (NEUPRO) 8 MG/24HR Place 1 patch onto the skin daily amantadine (SYMMETREL) 100 MG capsule Take 100 mg by mouth 2 times daily citalopram (CELEXA) 10 MG tablet Take 10 mg by mouth daily. Associated Diagnoses: Parkinson disease entacapone (COMTAN) 200 MG tablet Take 200 mg by mouth 4 times daily Takes at sames at [facility] CR 0600 1000 1430 1900 Associated Diagnoses: Parkinson disease carbidopa-levodopa (SINEMET) 25-100 MG per tablet Take 1 tablet by mouth 3 times daily as needed Associated Diagnoses: Parkinson disease carbidopa-levodopa (SINEMET CR) 50-200 MG per tablet Take 1 tablet by mouth 4 times daily Takes at 0600 1000 1430 1900 Associated Diagnoses: Parkinson disease oxyCODONE-acetaminophen (PERCOCET) 5-325 MG per tablet Take 1-2 tablets by mouth every 4 hours as needed for moderate to severe pain Qty: 60 tablet, Refills: 0 Associated Diagnoses: S/P deep brain stimulator placement vitamin D (ERGOCALCIFEROL) 76496 UNIT capsule Take 1 capsule (50,000 Units) by mouth every 7 days Qty: 4 capsule, Refills: 2 Associated Diagnoses: Vitamin D deficiency disease omeprazole 20 MG tablet Take 20 mg by mouth daily as needed Take 30-60 minutes before a meal. Qty: 30 tablet, Refills: 1 sildenafil (VIAGRA) 50 MG tablet Take 1 tablet by mouth daily as needed for erectile dysfunction. Qty: 10 tablet, Refills: 12 Comments: Please place on file, do not fill Associated Diagnoses: Erectile dysfunction Activity: activity as tolerated Diet: regular diet Wound Care: keep wound clean and dry, remove dressing POD #2 (). [facility] scheduled next week for staple removal. Signed: Arline Nasima Haresh 09/16/2014 8:46 AM Associated attestation - Gonzalez Rowland - 10/20/2014 7:45 AM CDT Physician Attestation I, Gonzalez Rowland, personally saw and evaluated Andrew Pang as part of a shared visit. I have reviewed and discussed with the advanced practice provider their discharge plan. My nan history or physical exam findings from the day of discharge: A+Ox3 Attends Fluent Follows PER FS TM BUE 09/23 BLE 5 Ann management decisions made by me: 59 yo doing well after DBS lead and generator placement Gonzalez Rowland Date of Service (when I saw the patient): 09/16/14 documented in this encounter Discharge Instructions Discharge InstructionsDenise Alejandro RN - 09/16/2014 10:04 AM CDT Same Day Surgery Discharge Instructions for Sedation and General Anesthesia ?? It's not unusual to feel dizzy, light-headed or faint for up to 24 hours after surgery or while taking pain medication. If you have these symptoms: sit for a few minutes before standing and have someone assist you when you get up to walk or use the bathroom. ?? You should rest and relax for the next 24 hours. You must make arrangements to have an adult staywith you for at least 24 hours after your discharge. Avoid hazardous and strenuous activity. ?? DO NOT DRIVE any vehicle or operate mechanical equipment for 24 hours following the end of your surgery. Even though you may feel normal, your reactions may be affected by the medication you have received. ?? Do not drink alcoholic beverages for 24 hours following surgery. ?? It's not unusual to feel nauseated and/or vomit after receiving anesthesia. If you develop these symptoms, drink clear liquids (apple juice, verna vince, broth, 7-up, etc. ) until you feel better. Slowly progress to your regular diet as you feel able. If your nausea and vomiting persists for 24 hours, please notify your surgeon. ?? All narcotic pain medications, along with inactivity and anesthesia, can cause constipation. Drinking plenty of liquids and increasing fiber intake will help. ?? For any questions of a medical nature, call your surgeon. ?? Do not make important decisions for 24 hours. ?? If you had general anesthesia, you may have a sore throat for a couple of days related to the breathing tube used during surgery. You may use Cepacol lozenges to help with this discomfort. If it worsens or if you develop a fever, contact your surgeon. ?? If you feel your pain is not well managed with the pain medications prescribed by your surgeon, please contact your surgeon's office to let them know so they can address your concerns. Wound instructions: Keep your incision clean and dry at all times. OK to remove dressing on postop day 2 (). OK to shower on postop day 3 (September 19) and allow water to run over incision, pat dry after shower. No bathing swimming or submerging in water. Call immediately or come to ED if any drainage occurs, or you develop new pain, redness, or swelling. Deep Brain Stimulator Postop Instructions Dr. Rowland [phone] 1. Ok to shower after 3 days. No bathing or swimming for 4 weeks 2. No heavy lifting, nothing over 15 lbs, or strenuous exercise for [address] Rowland for fevers, wound drainage or new pain at surgical site 4. Remove outer dressings after 2 days, then keep incision clean, dry and open to air. 5. Your anni will be removed in the office in 7-10 days. Important Things to Remember: ?? You will need to have battery checks done every 6-12 months ?? The internal pulse generator (battery) will need to be replaced every 3-5 years ?? You can NOT have an MRI of your body. You can have a brain MRI but ONLY if it is a head coil MRI. Be sure to let your physician and radiologist know you have a deep brain stimulator (DBS) ?? X-rays, CT scans, bone density tests, mammograms and nuclear body scans are okay. ?? You will need an antibiotic prior to any dental procedure. You can obtain this from your primary physican ?? If you require surgery or a procedure using cautery, it is important to note that only bipolar cautery should be used. The surgeon performing the surgery/procedure should be reminded that you have aDBS and the contact number for [employer] should be provided. ?? Some procedures require that the DBS system is turned off. [employer] can also instruct and guide regarding this. ?? You have been given a patient programmer operator numerical control that can check that the stimulator is on, can turn it off or make minor adjustments. ?? EKG, EEG, EMG, cardioversion or defibrillation are all procedures which can be affected by and/orinterfere with your DBS. ?? Diathermy treatments (commonly used in physical or occupation therapy and certain surgical procedures) are contraindicated with your DBS. Diathermy can be very dangerous and potentially fatal. Consult your [employer] quide. ?? Hyperbaric oxygen chamber treatment is contraindicated. [employer] or documented in this encounter Medications at Time of Discharge Medication Sig Dispensed Refills Start Date End Date amantadine (SYMMETREL) 100 Take 100 mg by 0 MG capsule mouth 2 times daily carbidopa-levodopa (SINEMET Take 1 tablet by 0 CR) 50-200 MG per mouth 4 times tabletIndications: Parkinson daily Takes at disease (H) 0600 1000 1430 1900 carbidopa-levodopa (SINEMET) Take 1 tablet by 0 25-100 MG per mouth 3 times tabletIndications: Parkinson daily as needed disease (H) citalopram (CELEXA) 10 MG Take 10 mg by 0 tabletIndications: Parkinson mouth daily. disease (H) hydrochlorothiazide Take 1 tablet (25 90 tablet 3 5 (HYDRODIURIL) 25 MG mg) by mouth tabletIndications: Leg daily swelling omeprazole 20 MG tablet Take 20 mg by 30 tablet 1 5 mouth daily as needed Take 30-60 minutes before a meal. entacapone (COMTAN) 200 MG Take 200 mg by 0 02/12/2015 tabletIndications: Parkinson mouth 4 times disease (H) daily Takes at sames at [facility] CR 0600 1000 1430 1900 oxyCODONE-acetaminophen Take 1-2 tablets 60 tablet 0 201402/12/2015 (PERCOCET) 5-325 MG per by mouth every 4 tabletIndications: S/P deep hours as needed brain stimulator placement for moderate to severe pain pravastatin (PRAVACHOL) 80 Take 1 tablet (80 90 tablet 0 11/17/2014 MG tabletIndications: mg) by mouth Hyperlipidemia LDL goal < daily 130 rotigotine (NEUPRO) 8 Place 1 patch 0 02/12/2015 MG/24HR onto the skin daily sildenafil (VIAGRA) 50 MG Take 1 tablet by 10 tablet 12 09/2002/12/2015 tabletIndications: Erectile mouth daily as dysfunction needed for erectile dysfunction. vitamin D (ERGOCALCIFEROL) Take 1 capsule 4 capsule 2 08/2602/12/2015 04294 UNIT (50,000 Units) by capsuleIndications: Vitamin mouth every 7 D deficiency disease days documented as of this encounter H&P Notes Corine Alexander - 09/11/2014 7:49 AM CDT The purpose of this note is to make the H&P performed in the clinic within the last 30 days available in the hospital surgical encounter. Source Note - Lurdes Thomas MD - 08/25/2014 12:38 PM CDT [address] [address] Dept: [phone] PRE-OP EVALUATION: Today's date: 08/25/2014 Andrew Pang (: 1955) presents for pre-operative evaluation assessment as requested by . He requires evaluation and anesthesia risk assessment prior to undergoing surgery/procedurefor treatment of Parkinson's . Proposed procedure: Deep brain stimulator implant Date of Surgery/ Procedure: 09/09& Time of Surgery/ Procedure: 05 Hospital/Surgical Facility: [facility] Primary Physician: Lurdes Thomas Type of Anesthesia Anticipated: General Patient has a Health Care Directive or Living Will: NO 1. NO - Do you have a history of heart attack, stroke, stent, bypass or surgery on an artery in the head, neck, heart or legs? 2. YES - DO YOU EVER HAVE ANY PAIN OR DISCOMFORT IN YOUR CHEST? 6 months ago due to GERD 3. NO - Do you have a history of Heart Failure? 4. YES - ARE YOUR TROUBLED BY SHORTNESS OF BREATH WHEN WALKING ON THE LEVEL, UP A SLIGHT HILL OR AT NIGHT? Last fall 5. NO - Do you currently have a cold, bronchitis or other respiratory infection? 6. NO - Do you have a cough, shortness of breath or wheezing? 7. NO - Do you sometimes get pains in the calves of your legs when you walk? 8. NO - Do you or anyone in your family have previous history of blood clots? 9. NO - Do you or does anyone in your family have a serious bleeding problem such as prolonged bleeding following surgeries or cuts? 10. NO - Have you ever had problems with anemia or been told to take iron pills? 11. NO - Have you had any abnormal blood loss such as black, tarry or bloody stools, or abnormal vaginal bleeding? 12. NO - Have you ever had a blood transfusion? 13. NO - Have you or any of your relatives ever had problems with anesthesia? 14. NO - Do you have sleep apnea, excessive snoring or daytime drowsiness? 15. NO - Do you have any prosthetic heart valves? 16. NO - Do you have prosthetic joints? 17. NO - Is there any chance that you may be ? HPI: Brief HPI related to upcoming procedure: Patient with longstanding history of Parkinson's disease - has had worsening symptoms and plans deep brain stimulator placement. 1. AN: pt with increase AN and SOB over the last year. Had negative cardiac ECHO, stress test and PFTs with only mild restrictive pattern. Seeing pulmonology - recommended pulse oximetry test overnight and found O2 decreased to 86%. Recommended sleep study. Scheduled in September. 2. Leg swelling - echo and kidney function normal. Likely from venous insufficiency. Started HCTZ on08/11. 3. Brochitis - Patient seen on 08/11 with cough left over from previous URI that was 2 weeks prior. Started on doxycyline and now resolved. 4. HLP: on pravastatin but not taking every day. Restarted recently on daily basis - have not yet recheck lipids. MEDICAL HISTORY: Patient Active Problem List Diagnosis Date Noted ??? GERD (gastroesophageal reflux disease) 06/11/2014 Priority: Medium ??? Prediabetes 09/20/2012 Priority: Medium ??? DDD (degenerative disc disease), cervical 10/25/2011 Priority: Medium ??? Restless leg syndrome 10/15/2010 Priority: Medium ??? Parkinson disease Priority: Medium ? ? Hyperlipidemia LDL goal < 130 Priority: Medium Past Medical History Diagnosis Date ??? Parkinson disease ? ? Hyperlipidemia LDL goal < 130 ??? Angina at rest Past Surgical History Procedure Laterality Date ??? Hernia repair age 11 ??? Discectomy cervical minimally invasive one level 2000 Current Outpatient Prescriptions Medication Sig Dispense Refill ??? pravastatin (PRAVACHOL) 80 MG tablet Take 1 tablet (80 mg) by mouth daily 90 tablet 0 ??? hydrochlorothiazide (HYDRODIURIL) 25 MG tablet Take 1 tablet (25 mg) by mouth daily 30 tablet 1 ??? rotigotine (NEUPRO) 8 MG/24HR Place 1 patch onto the skin daily ??? amantadine (SYMMETREL) 100 MG capsule Take 100 mg by mouth 2 times daily ??? omeprazole 20 MG tablet Take 1 tablet (20 mg) by mouth daily Take 30-60 minutes before a meal. 30 tablet 1 ??? citalopram (CELEXA) 10 MG tablet Take 10 mg by mouth daily. ??? entacapone (COMTAN) 200 MG tablet Take 200 mg by mouth 4 times daily. ??? carbidopa-levodopa (SINEMET) 25-100 MG per tablet Take 1 tablet by mouth 3 times daily. ??? sildenafil (VIAGRA) 50 MG tablet Take 1 tablet by mouth daily as needed for erectile dysfunction. 10 tablet 12 ??? carbidopa-levodopa (SINEMET CR) 50-200 MG per tablet Take by mouth 2 times daily. Pt unsure of dose OTC products: None, except as noted above No Known Allergies Latex Allergy: NO History Substance Use Topics ??? Smoking status: Never Smoker ??? Smokeless tobacco: Never Used ??? Alcohol Use: Yes Comment: not often History Drug Use No REVIEW OF SYSTEMS: Constitutional, neuro, ENT, endocrine, pulmonary, cardiac, gastrointestinal, genitourinary, musculoskeletal, integument and psychiatric systems are negative, except as otherwise noted. EXAM: BP 120/70 Pulse 80 Temp(Src) 96.8 ??F (36 ??C) (Tympanic) Ht 6' 1 (1.854 m) Wt 218 lb (98.884 kg) BMI 28.77 kg/m2 GENERAL APPEARANCE: healthy, alert and no distress EYES: EOMI, - PERRL HENT: ear canals and TM's normal and nose and mouth without ulcers or lesions NECK: no adenopathy, no asymmetry, masses, or scars RESP: lungs clear to auscultation - no rales, rhonchi or wheezes CV: regular rates and rhythm, normal S1 S2, no S3 or S4 and no murmur, click or rub - 1+ edema in bilateral lower legs ABDOMEN: soft, nontender, no HSM or masses and bowel sounds normal MS: extremities normal- no gross deformities noted, no evidence of inflammation in joints, FROM in all extremities. SKIN: no suspicious lesions or rashes NEURO: Normal strength and tone, sensory exam grossly normal, mentation intact and speech normal. mild right hand tremor at rest, mild dyskinesia PSYCH: mentation appears normal. and affect normal/bright LYMPHATICS: No axillary, cervical, inguinal, or supraclavicular nodes DIAGNOSTICS: EKG (06/11/14): NSR Lexiscan (06/25/14) : Impression 1. Myocardial perfusion imaging using single isotope technique demonstrated no evidence of ischemia or infarction. 2. Gated images demonstrated normal-sized left ventricle with normal wall motion. The left ventricular systolic function is normal with ejection fraction 62 per. ECHO (06/25/14): normal, EF 55-60% PFTs (07/06): mild restriction, no obstruction and normal DLCO Recent Labs Lab Test 06/11/14 0905 09/20/12 0817 HGB 15.4 -- PLT 205 -- NA 139 139 POTASSIUM 4.7 4.6 CR 0.82 0.94 IMPRESSION: Reason for surgery/procedure: deep brain stimulator Diagnosis/reason for consult: elaine-operative management The proposed surgical procedure is considered INTERMEDIATE risk. REVISED CARDIAC RISK INDEX The patient has the following serious cardiovascular risks for perioperative complications such as (NM, PE, VFib and 3?? AV Block): No serious cardiac risks INTERPRETATION: 0 risks: Class I (very low risk - 0.4% complication rate) The patient has the following additional risks for perioperative complications: No identified additional risks ICD-9-CM 1. Preop general physical exam V72.83 2. Parkinson disease 332.0 3. Bilateral leg edema 782.3 RECOMMENDATIONS: --Approval given to proceed with proposed procedure, without further diagnostic evaluation --Patient is to take all scheduled medications on the day of surgery EXCEPT for modifications listedbelow. - will not take any Parkinson's medications as needs to be off of medication to evaluate response toplacement of deep brain stimulator Obstructive Sleep Apnea (or suspected sleep apnea) Hospital staff are advised to monitor for sleep related oxygen desaturations due to suspicion of LATISHA Signed Electronically by: Lurdes Thomas MD Copy of this evaluation report is provided to requesting physician. [facility] Preop Guidelines documented in this encounter Nursing Notes Marcela Lehman RN - 09/17/2014 10:43 AM CDT Will leave a note for Dr. Rowland and PA regarding the concern of the top of his tongue numbness. Marcela Lehman RN - 09/16/2014 10:54 AM CDT Patient up and dressed with assist. Tolerated PO fluids and medication. Transferred to Phase II. Patient reminded to use CPAP @ home. Ann Ruiz RN - 09/15/2014 9:38 AM CDT PT. WILL BRING CPAP AND 1000 DOSE OF MEDICATION documented in this encounter Miscellaneous Notes Op Note - Gonzalez Rowland - 09/16/2014 10:15 AM CDT PREOPERATIVE DIAGNOSIS: Parkinsons disease POSTOPERATIVE DIAGNOSIS: same Procedure(s): Implant of right infraclavicular pulse generator and bilateral lead extensions SURGEON: Gonzalez Rowland MD Photographic Equipment Inspector: Arline Hutson NP PROCEDURE: The patient was brought to the operating room where general anesthesia was induced and the patient was placed supine and arms tucked. Time out was performed and antibiotics given. Incisions were planned in the retroauricular region over the previously tunneled leads, and an approx 6cm incision 3 fingerbreadths below the clavicle to the right of midline. Both were 0.5% marcaine with epi. The infraclavicular incision was made with a 15 blade and subcutaneous fat dissected sharply with the scalpel until the pectoralis fascia encountered. A pocket was dissected sharply in the plane just above the fascia. Hemostasis achieved with a bipolar. The retroauricular incision was made with a 15 blade through the dermis, then bluntly dissected witha mosquito down to the lead caps. The occipitocervical fascia was entered with a schnidt. The tunneler was then tunneled to the infraclavicular pocket and leads pulled through. The previous left cap was affixed with a silk suture to identify it as left. The extensions were connected to the left and right leads (white boot placed on the left and clear on right) and the left lead placed in the 0-7 anterior port of the generator, with the right in the posterior port. Both were affixed with the torque wrench. Boots were secured with 2 2-0 silk ties.. The pocket was irrigated copiously with antibiotic solution. The generator was placed in the pocket and impedences checked, all of which were in good range. The retroauricular incision was irrigated with antibiotic solution. Boththe pocket and retroauricular incision were closed with 3-0 vicryl sutures and anni Bacitracin and sterile dressing were placed. Findings: intact stimulator system EBL (Estimated Blood Loss) (ml): 2cc Specimens Removed: none sent Patient transferred out of operating room in Stable condition. All surgical medications, procedures and x-rays performed in surgery-on the order of the operating physicians. Gonzalez Rowland MD documented in this encounter Plan of Treatment Not on filedocumented as of this encounter Procedures Procedure Name Priority Date/Time Associated Diagnosis Comme nts INSERTION, 09/16/2014 7:23 AM PARKINSONS DISEASE NEUROSTIMULATOR, CDT PERMANENT, SUBCUTANEOUS documented in this encounter Visit Diagnoses Not on filedocumented in this encounter Administered Medications Inactive Administered Medications - up to 3 most recent administrations Medication Order MAR Action Action Date Dose Rate Site bacitracin ointment Given 09/16/2014 8:20 AM 1 Tube Operative PRN, Starting on Mon CDT Site /Surgical Site 09/16/14 at 0820, Intra-procedure bupivacaine 0.5 % - Given 09/16/2014 7:42 AM 10 mLs Operative Site/Surgical EPINEPHrine 1:200,000 CDT Sit e injection PRN, Starting on Mon09/16/14 at 0742, Intra-procedure ceFAZolin 1000 mg, Given 09/16/2014 7:41 AM 1,000 mLs Operative gentamicin 120 mg in 0.9% CDT Site/Surgical Site NaCl 1000 mL irrigation PRN, Starting on Mon09/16/14 at 0741, Intra-procedure fentaNYL (SUBLIMAZE) injection 25-50 mcg Given 09/16/2014 9:50 AM CDT 50 mcg 25-50 mcg, Intravenous, EVERY 2 MIN PRN, other, acute pain while in PACU., Starting on Mon09/16/14 at 0834, MAX cumulative dose = 250 mcg. Use Fentanyl initially, as a short acting agent for acute pain control. If insufficient, or a longer acting agent is needed, begin Morphine or Hydromorphone if ordered., PACU Given 09/16/2014 9:13 AM CDT 50 mcg ondansetron (ZOFRAN) injection 4 mg Given 09/16/2014 9:06 AM CDT 4 mg 4 mg, Intravenous, EVERY 30 MIN PRN, nausea, vomiting, Administer over 2-5 Minutes, Starting on Mon09/16/14 at 0834, For 2 doses, MAX total dose = 8 mg, including OR dosing. This is step 1 of the nausea and vomiting protocol. If not resolved in 15 minutes, then go to step 2 (Prochlorperazine if ordered)., PACU/Phase II oxyCODONE-acetaminophen (PERCOCET) 5-325 Given 09/16/2014 10 :05 AM CDT 1 tablet MG per tablet 1-2 tablet 1-2 tablet, Oral, ONCE PRN, moderate to severe pain, Starting on Mon09/16/14 at 0856, For 1 dose, One time prior to discharge Maximum acetaminophen dose from all sources= 75 mg/kg/day not to exceed 4 grams, Post-procedure documented in this encounter Active and Recently Administered Medications Times are shown in CDT. Scheduled Medication Order 09/14/2014 09/15/2014 09/16/2014 ceFAZolin (ANCEF) intermittent infusion 2 g (pre-mix) (COMPLETED ) 0742 (Given - Provider: Pavel Miner) Routine, 2 g, Intravenous, PRE-OP/PRE-HI OCEDURE, Starting on Mon09/16/14 at 0638, For 1 dose, Give first dose within 1 hour PRIOR to incision. If patient weight is greater than or equal to 120 kg change dose to 3 g., Indications: Perioperative Pharmacoprophylaxis, P re-procedure PRN Medication Order 09/14/2014 09/15/2014 09/16/2014 bacitracin ointment (CANCELED) 0 820 (Given - Provider: Gonzalez Rowland - Comment: PRN) PRN, Starting Mon09/16/14 at 0820, Intra-procedure bupivacaine 0.5 % - EPINEPHrine 1:200,000 injection (CANCELED) 0742 (Given - Provider: Gonzalez Rowland) PRN, Starting Mon09/16/14 at 0742, Intra-procedure ceFAZolin 1000 mg, gentamicin 120 mg in 0.9% NaCl 1000 mL irrigation (CANCELED) 0741 (Given - Provider: Gonzalez Rowland - Comment: PRN) PRN, Starting Mon09/16/14 at 0741, Intra-procedure fentaNYL (SUBLIMAZE) injection 25-50 mcg (CANCELED) 0913 (Given - Provider: Naima Hearn RN)0950 (Given - Provider: Marcela Lehman RN) 25-50 mcg, Intravenous, EVERY 2 MIN PRN, Starting Mon09/16/14 at 0834, other, acute pain while in PACU., MAX cumulative dose = 250 mcg. Use Fentanyl initially, as a short acting agent for acute pain con trol. If insufficient, or a longer actin g agent is needed, begin Morphine or Hydromorphone if ordered., PACU ondansetron (ZOFRAN) injection 4 mg (CANCELED) 0906 (Given - Provider: Naima Hearn, RN) 4 mg, Intravenous, EVERY 30 MIN PRN, obie sea, vomiting, for 2 Minutes, Starting Mon09/16/14 at 0834, For 2 doses, MAX total dose = 8 mg, including OR dosing. This is step 1 of the nausea and vomiting pro tocol. If not resolved in 15 minutes, th en go to step 2 (Prochlorperazine if ordered)., PACU/Phase II oxyCODONE-acetaminophen (PERCOCET) 5-325 MG per tablet 1-2 table t (COMPLETED) 1005 (Given - Provider: Marcela Lehman RN) 1-2 tablet, Oral, ONCE PRN, moderate to severe pain, Starting Mon09/16/14 at 0856, For 1 dose, One time prior to discharge Maximum acetaminophen dose from all sources= 75 mg/kg/day not to exceed 4 grams, Post-procedure documented in this encounter Care Teams Director Product Management Relationship Specialty Start Date End Date Lurdes Thomas MD PCP - General Internal Medicine 06/11/14 12/16/20 documented as of this encounter
--- OUTSIDE RECORDS SUMMARY | 2021-12-28 12:15 | XMS_ITS | Encounter Summary ---
:1955 Author Organization [place] Address [address] [place] [address]. [place] [address] Care Team Providers Name Role Phone Lurdes Thomas MD Primary Care Provider [phone] Reason for Visit Reason Onset Date Comments Prior Auth - Medication 02/12/2015 viagra Encounter Details Date Type Department Care Team Description 02/12/2015 Telephone [facility] Lurdes Oh Prior Auth - Medication [address] [facility] MD [place] (viagra ) [place] [id number] [facility] [phone] [place] [id number] 25 (Wo rk) Social History Tobacco Use [...] this encounter Miscellaneous Notes Telephone Encounter - Tamy Leahy LPN - 02/18/2015 10:09 AM CDT PA approved. Tamy Leahy LPN Telephone Encounter - Tamy Leahy LPN - 02/12/2015 3:22 PM CDT Prior auth request for Viagra. Filled out and faxed. Tamy Leahy LPN documented in this encounter Plan of Treatment Not on filedocumented as of this encounter Visit Diagnoses Not on filedocumented in this encounter Care Teams Environmental Research Scientist Relationship Specialty Start Date End Date Lurdes Thomas MD PCP - General Internal Medicine 06/11/14 12/16/20 documented as of this encounter
--- OUTSIDE RECORDS SUMMARY | 2021-12-28 12:15 | XMS_ITS | Encounter Summary ---
:1955 Author Organization [facility] Address [address] [place] [address] Care Team Providers Name Role Phone Unavailable Primary Care Provider Unavailable Encounter Details Date Type Department Care Team Description 05/11/2006 PN Conversion Only AIRPORT CONVERSION [address] [place] [address] Social History Tobacco Use Types Packs/Day Years Used Date Smoking Tobacco: Never Assessed Sex Assigned at Date Recorded Not on file documented as of this encounter Plan of Treatment Not on filedocumented as of this encounter Visit Diagnoses Not on filedocumented in this encounter
--- OUTSIDE RECORDS SUMMARY | 2021-12-28 12:15 | XMS_ITS | Encounter Summary ---
:1955 Author Organization [place] Address [address] [place] [address] Care Team Providers Name Role Phone Samantha Stauffer MD Primary Care Provider [phone] Reason for Referral Diagnostic Imaging XR (Routine) - Pending Review Specialty Diagnoses / Procedures Referred By Contact Refer red To Contact Diagnoses Esophageal dysphagia Charanjit Gray MD Procedures XR Esophagram [facility] [address] [address] [place], [place] [address] Referral ID Status Reason Start Date Expiration Date Visits V isits Requested Authorized [id number] Pending 12/09/2020 12/09/2021 1 1 Review Reason for Visit Diagnostic Imaging XR (Routine) - Pending Review Specialty Diagnoses / Procedures Referred By Contact Refer red To Contact Diagnoses Esophageal dysphagia Charanjit Gray MD Procedures XR Esophagram [facility] [address] [address] [place], [place] [address] Referral ID Status Reason Start Date Expiration Date Visits V isits Requested Authorized [id number] Pending 12/09/2020 12/09/2021 1 1 Review Encounter Details Date Type Department Care Team Description 12/17/2020 [facility] Charanjit Gray MD Esophageal Encounter [facility] dysphagia [address] [place] [address] [address] [place] [address] [place], [place] [phone] (Wo rk) [id number] [phone] Social History Tobacco Use Types Packs/Day Years [...] Date Recorded Male 08/05/2020 2:57 PM CDT COVID-19 Exposure Response Date Recorded In the last month, have you been in contact with No / Unsure 12/17/2020 8:55 AM CDT someone who was confirmed or suspected to have Coronavirus / COVID-19? documented as of this encounter Medications at Time of Discharge Medication Sig Dispensed Refills Start Date End Date amantadine (SYMMETREL) 100 Take 100 mg by 0 MG capsule mouth 2 times daily carbidopa-levodopa (SINEMET Take 1 tablet by 0 CR) 50-200 MG per mouth 4 times daily tabletIndications: Parkinson Takes at 0600 1000 disease (H) 1430 1900 carbidopa-levodopa (SINEMET) Take 1 tablet by 0 25-100 MG per mouth 3 times daily tabletIndications: Parkinson as needed disease (H) citalopram (CELEXA) 10 MG Take 10 mg by mouth 0 tabletIndications: Parkinson daily. disease (H) hydrochlorothiazide Take 1 tablet (25 90 tablet 3 5 (HYDRODIURIL) 25 MG mg) by mouth daily tabletIndications: Leg swelling omeprazole 20 MG tablet Take 20 mg by mouth 30 tablet 1 daily as needed Take 30-60 minutes before a meal. pravastatin (PRAVACHOL) 80 Take 1 tablet (80 90 tablet 1 MG tabletIndications: mg) by mouth daily Hyperlipidemia with target LDL less than 130 sildenafil (VIAGRA) 50 MG Take 1 tablet (50 24 tablet 3 tabletIndications: Erectile mg) by mouth daily dysfunction as needed for erectile dysfunction documented as of this encounter Plan of Treatment Not on filedocumented as of this encounter Procedures Procedure Name Priority Date/Time Associated Diagnosis Comme nts XR ESOPHAGRAM Routine 12/17/2020 9:27 AM Esophageal dysphagia Results for this CDT procedure are i n the results section . documented in this encounter Results XR Esophagram (12/17/2020 9:27 AM CDT) Anatomical Region Laterality Modality Chest Radio Fluoroscopy Specimen (Source) Anatomical Location Collection Method / Collectio n Time Received Time / Laterality Volume Impressions 12/17/2020 4:05 PM CDT IMPRESSION: 1. Diffuse dilatation of the esophagus w ith limited peristalsis. This could relate to presbyesophagus. Severe intraesophageal reflux to the upper esophagus. 2. Question of some mild nodular filling defect at the distal esophagus near the GE junction. This is not entirely convincing by this exam. However, consider endoscopy c orrelation to assess for underlying mucosal esophageal lesion. DONYA PENA MD Narrative 12/17/2020 4:05 PM CDT ESOPHAGRAM ?? 12/17/2020 9:27 AM HISTORY: Esophageal dysphagia. COMPARISON: None. FINDINGS: Total fluoroscopy time was 0.6 minutes. ??11 spot fluoroscopic images, and/or cine clips w ere obtained. 7 views obtained. The patient was given barium to drink. T here is persistent diffuse dilatation of the esophagus with limited peristalsis and limited stripping of the barium column within th e esophagus. However, there is passage of contrast into the stomach. No hiatal hernia can be seen. Mild nodularity of the distal esophagus near the GE junction is felt to be equivocal. There is severe intraes ophageal reflux to the upper esophagus. Procedure Note Donya Pena MD - 12/17/2020Forma tting of this note might be different from the original. ESOPHAGRAM 12/17/2020 9:27 AM HISTORY: Esophageal dysphagia. COMPARISON: None. FINDINGS: Total fluoroscopy time was 0.6 minutes. 11 spot fluoroscopic images, and/or cine clips w ere obtained. 7 views obtained. The patient was given barium to drink. T here is persistent diffuse dilatation of the esophagus with limited peristalsis and limited stripping of the barium column within th e esophagus. However, there is passage of contrast into the stomach. No hiatal hernia can be seen. Mild nodularity of the distal esophagus near the GE junction is felt to be equivocal. There is severe intraes ophageal reflux to the upper esophagus. IMPRESSION: 1. Diffuse dilatation of the esophagus w ith limited peristalsis. This could relate to presbyesophagus. Severe intraesophageal reflux to the upper esophagus. 2. Question of some mild nodular filling defect at the distal esophagus near the GE junction. This is not entirely convincing by this exam. However, consider endoscopy c orrelation to assess for underlying mucosal esophageal lesion. DONYA PENA MD Charanjit Gray MD IMG DIAGNOSTIC IMAGING ORDER HECTOR documented in this encounter Visit Diagnoses Diagnosis Esophageal dysphagia Dysphagia, pharyngoesophageal phase documented in this encounter Administered Medications Inactive Administered Medications - up to 3 most recent administrations Medication Order MAR Action Action Date Dose Rate Site barium sulfate (EZ PAQUE) oral Given 12/17/2020 9:26 AM CDT 40 m Ls suspension 96% 140 mL Oral, ONCE, On Stacey 12/17/20 at 0930, For 1 dose documented in this encounter Care Teams Museum Curator Relationship Specialty Start Date End Date Samantha tSauffer MD PCP - General Family Medicine 12/17/20 [place] [address] documented as of this encounter
--- OUTSIDE RECORDS SUMMARY | 2021-12-28 12:15 | XMS_ITS | Encounter Summary ---
:1955 Author Organization [place] Address [address] [place] [address]. [place] [address] Care Team Providers Name Role Phone Samantha Stauffer MD Primary Care Provider [phone] Encounter Details Date Type Department Care Team Description 12/17/2020 Travel Social History Tobacco Use Types Packs/Day Years [...] / COVID-19? documented as of this encounter Plan of Treatment Not on filedocumented as of this encounter Visit Diagnoses Not on filedocumented in this encounter Care Teams National Sales Associate Relationship Specialty Start Date End Date Samantha Stauffer MD PCP - General Family Medicine 12/17/[address] [address] documented as of this encounter
--- OUTSIDE RECORDS SUMMARY | 2021-12-28 12:15 | XMS_ITS | Encounter Summary ---
:1955 Author Organization [place] Address [address] [facility] [place] [address] Care Team Providers Name Role Phone Lurdes Thomas MD Primary Care Provider [phone] Reason for Visit (Routine) - Closed Specialty Diagnoses / Procedures Referred By Contact Refer red To Contact Radiology / Radiology. Procedures [facility] LUMBAR SPINE [address] [place] [address] Phone: Referral ID Status Reason Start Date Expiration Date Visits Requ ested Visits Authorized [id number] Closed 08/18/2015 08/17/2016 1 1 Encounter Details Date Type Department Care Team Description 08/21/[address] [facility] re low back pain [facility] Imaging Maria Esther Amaro MD [address] [place], [place] [address] [employer] [id number] [place] [address] Social History Tobacco Use Types [...] as of this encounter Visit Diagnoses Diagnosis Severe low back pain Lumbago documented in this encounter Care Teams Pad Extraction Tender Relationship Specialty Start Date End Date Lurdes Thomas MD PCP - General Internal Medicine 06/11/14 12/16/20 documented as of this encounter
--- OUTSIDE RECORDS SUMMARY | 2021-12-28 12:15 | XMS_ITS | Encounter Summary ---
:1955 Author Organization [place] Address [address] [place] [address] Care Team Providers Name Role Phone Lurdes Thomas MD Primary Care Provider [phone] Encounter Details Date Type Department Care Team Description 09/11/2014 Telephone [facility] Nurse Eladia Muñoz, RN [employer] [address] [place] [address] Social History Tobacco Use Types Packs/Day Years [...] this encounter Miscellaneous Notes Telephone Encounter - Shannon Muñoz RN - 09/11/2014 6:51 PM CDT Call Type: Triage Call Presenting Problem: Natasha calling. My had optical tracking deep brain stim performed on 09/09/14. He was discharged on 09/09/14 and they told us he may have swelling on his head but now the swelling has increased and reached his R eye. It is swollen shut. The area on his head where the bandages are is very itchy. Will page ruby on rails consultant for [facility] page ore bridge operator for spine and brain clinic to have ruby on rails consultant Dr. Rowland call Natasha @ [phone]. Did not complete infection screen for ebola. Triage Note: Guideline Title: Postoperative Wound Care ; Postoperative Wound Care Recommended Disposition: See Provider within 4 hours Original Inclination: Would have called clinic Override Disposition: Call/Page Health Care Practitioner. Intended Action: Follow advice given Physician Contacted: No New or increased redness, swelling, pain or purulent drainage (may be foul smelling) around surgical wound or drain site ? YES New onset OR worsening bleeding from incision requiring pressure to control ? NO Wound separation AND internal organs protrude through wound or surgical incision (evisceration) ? NO New or worsening signs and symptoms that may indicate shock ? NO Continuous or heavy bleeding from operative site and NOT controlled with 10 minutes of steady pressure ? NO Separation of wound edges without protrusion of tissue (dehiscence) ? NO One or more loose or missing stitches or anni, Steri-Strips or tissue adhesive comes off in first few days post-surgery ? NO Drain does not drain as expected or comes out ? NO computer programming supervisor (pump, infusion catheter) damaged or not functioning as expected (leaking, not infusing, swelling at insertion site) ? NO More bleeding from site of instrumentation or procedure OR bleeding lasting longer than defined in provider specified discharge information ? NO Physician Instructions: Care Advice: Another adult should drive. Post-Op Incision Care - General Information: - Follow provider directions for incision care and dressing change. - Do not bathe, swim or soak the wound area until the wound has healed or until your provider tells you it is okay. A sponge bath or shower is usually okay after you are home. - Incision(s) may drain scant amount of clear, sticky fluid for several days cover with a dressing to collect drainage and protect clothes. - May note mild-moderate bruising around incision(s) which may take 1-2 weeks to disappear completely. - Mild itching may be felt during the healing process. Sometimes, itching or slight irritation may result from tapes or Steri-Strips. - If you find clothing irritates your incision, you may apply gauze dressing even if a dressing is not needed. Post-Op Dressing Change: - Follow provider directions for dressing change and incision care. - Wash hands with warm water and soap for at least 15 seconds or use a hand houseperson before and after touching the wound area. - Remove the dressing and dispose in a plastic bag throw out with regular trash. - Gently wash the wound with warm water and soap do not vigorously rub or scrub the wound. Avoid the use of alcohol, hydrogen peroxide or iodine unless directed to do so. These products may irritate the new tissue and delay healing. Rinse with clean water and using a soft towel, pat the skin dry. - Check the wound every day for any signs of infection (increased redness, swelling, warmth, tenderness, yellowish-white drainage or a bad odor). - Do not use topical powder, sprays, lotions or ointments on your wound unless approved by your provider. After the first week post-op, your provider may tell you to apply Vitamin E oil to incision line to promote healing and help minimize scarring. - Apply a new dressing as instructed. Some incisions may not need a dressing. Apply a gauze pad to incision if clothing irritates the area. documented in this encounter Plan of Treatment Not on filedocumented as of this encounter Visit Diagnoses Not on filedocumented in this encounter Care Teams Human Capital Consultant Relationship Specialty Start Date End Date Lurdes Thomas MD PCP - General Internal Medicine 06/11/14 12/16/20 documented as of this encounter
--- OUTSIDE RECORDS SUMMARY | 2021-12-28 12:15 | XMS_ITS | Encounter Summary ---
:1955 Author Organization [place] Address [address] [facility] [place] [address] Care Team Providers Name Role Phone Lurdes Thomas MD Primary Care Provider [phone] Encounter Details Date Type Department Care Team Description 09/18/2014 Documentation Only [facility] Gonzalez Rowland [facility] MD [place] XX RESIGNED XX [address] [facility] out [address] [facility] [address] [place] [address] [place] [address] [phone] Social History Tobacco Use Types Packs/Day Years [...] PM CDT documented as of this encounter Progress Notes Gonzalez Rowland - 09/18/2014 3:05 PM CDT To Whom It May Concern: Andrew Pang is a patient with Parkinson???s disease, who has had progressive worsening of his function since his 2007 diagnosis, and who underwent successful deep brain stimulation surgery with me. He has had an excellent postoperative outcome, yet I discovered that his coverage was denied. I humblyand respectfully write this appeal because I think Andrew was the ideal candidate for DBS surgery, in desperate need of surgery, and will benefit for years to come from having the surgery. Although his ???off?? UPDRS score was not above 30, he has a unique set of symptoms and medication related issues that define him as an excellent DBS candidate despite his worst ???off?? score. His Parkinson???s medications had been working quite well to control his symptoms, yet he developed freezing of gait and resultant falling, which were a direct result of his medication wearing off throughoutthe day during pharmacologic peaks and valleys. This ???freezing?? when his medication wears off puts him at risk for both emotional distress and physical injury from falls. The reason DBS surgery wasso important for Andrew is because it would provide him with [id number] control of his motor symptoms, which would reduce and potentially eliminate his risk of freezing episodes and falling in the future. Andrew has recovered amazingly from surgery and has already seen benefit in his ambulation. I implore you to provide the insurance coverage for Andrew???s surgery, as well as his care moving forward; this surgery has been essential for his well being, safety, and will continue to reduce his disease-related costs in the future. Please feel free to call me with any questions. Gonzalez Merritt MD documented in this encounter Plan of Treatment Not on filedocumented as of this encounter Visit Diagnoses Not on filedocumented in this encounter Care Teams Loom Fixer Supervisor Relationship Specialty Start Date End Date Lurdes Thomas MD PCP - General Internal Medicine 06/11/14 12/16/20 documented as of this encounter
--- OUTSIDE RECORDS SUMMARY | 2021-12-28 12:15 | XMS_ITS | Encounter Summary ---
:1955 Author Organization [place] Address [address] [place] [address]. [place] [address] Care Team Providers Name Role Phone Lurdes Thomas MD Primary Care Provider [phone] Encounter Details Date Type Department Care Team Description 08/29/2020 Immunization [facility] Vaccination [address] [address] [place] [address] [phone] Social History Tobacco Use Types Packs/Day Years [...] on filedocumented in this encounter Care Teams Brake Drum Lathe Operator Relationship Specialty Start Date End Date Lurdes Thomas MD PCP - General Internal Medicine 06/11/14 12/16/20 documented as of this encounter
--- OUTSIDE RECORDS SUMMARY | 2021-12-28 12:15 | XMS_ITS | Encounter Summary ---
:1955 Author Organization [facility] Address [address] [facility] [place] [address] Care Team Providers Name Role Phone Lurdes Thomas MD Primary Care Provider [phone] Reason for Visit Auth/Cert - Closed Specialty Diagnoses / Procedures Referred By Contact Refer red To Contact Surgery Diagnoses PARKINSONS DISEASE Sh Periop Services Procedures IMPLANT PULSE GENERATOR SUBCUTANEOUS [address] [place] [address] Phone: Referral ID Status Reason Start Date Expiration Date Visits Requ ested Visits Authorized [id number] Closed 1 1 Encounter Details Date Type Department Care Team Description 09/16/2014 Hospital Encounter [facility] Gonzalez Rowland PreOP/Phase Liliam Snider II XX RESIGNED XX [address] [place] [address] [place] [address] [phone] Social History Tobacco Use Types Packs/Day Years [...] Sign Reading Time Taken Comments Blood Pressure 124/78 09/16/2014 10:30 AM CDT Pulse - - Temperature 36.6 ??C (97.8 ??F) 09/16/2014 10:30 AM CDT Respiratory Rate 12 09/16/2014 10:30 AM CDT Oxygen Saturation 93% 09/16/2014 10:30 AM CDT Inhaled Oxygen Concentration - - Weight 96.4 kg (212 lb 9.6 oz) 09/16/2014 6:53 AM CDT Height 188 cm (6' 2) 09/16/2014 6:53 AM CDT Body Mass Index 27.3 09/16/2014 6:53 AM CDT documented in this encounter Discharge Summaries Arline Hutson APRN CLINICAL MANAGER HOME CARE - 09/16/2014 8:46 AM CDT Physician Discharge Summary Patient ID: Andrew Pang [id number] 59 year old 1955 Admit date: 09/16/2014 Discharge date and time: 09/16/2014 Admitting Physician: Gonzalez Rowland MD Discharge Physician: Arline Hutson [facility] Admission Diagnoses: PARKINSONS DISEASE Discharge Diagnoses: [...] deep brain stimulator placement vitamin D (ERGOCALCIFEROL) 86560 UNIT capsule Take 1 capsule (50,000 Units) [...] next week for staple removal. Signed: Arline Hutson 09/16/2014 8:46 AM Associated attestation - Gonzalez Rowland - 10/20/2014 7:45 AM CDT Physician Attestation IGonzalez, personally saw and evaluated Andrew Pang as part of a shared visit. I have reviewed and discussed with the advanced practice provider their discharge plan. My yap history or physical exam findings from the day of discharge: A+Ox3 Attends Fluent Follows BERNARD LOPES 09/23 BLE 09/23 Yap management decisions made by me: 59 yo [...] Deep Brain Stimulator Postop Instructions Dr. Rowland [phone] 1. Ok to shower after 3 days. [...] have aDBS and the contact number for [employer] should be provided. ?? Some procedures require that the DBS system is turned off. [employer] can also instruct and guide regarding this. ?? 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 Consult your [employer] kelly. ?? Hyperbaric oxygen chamber treatment is contraindicated. [...] Take 1 capsule 4 capsule 2 08/2602/12/2015 67099 UNIT (50,000 Units) by capsuleIndications: Vitamin mouth every 7 D deficiency disease days documented as of this encounter H&P Notes Corine Alexander - 09/11/2014 7:49 AM CDT The purpose of this note is to make the H&P performed in the clinic within the last 30 days available in the hospital surgical encounter. Source Note - Lurdes Thomas MD - 08/25/2014 12:38 PM CDT [address] [address] Dept: [phone] PRE-OP EVALUATION: Today's date: 08/25/2014 Andrew Pang (: 1955) presents for pre-operative evaluation assessment as requested by . He requires evaluation and anesthesia risk assessment prior to undergoing surgery/procedurefor treatment of Parkinson's . Proposed procedure: Deep brain stimulator implant Date of Surgery/ Procedure: 09/09& Time of Surgery/ Procedure: 529 Hospital/Surgical Facility: [facility] Primary Physician: Lurdes Thomas Type of Anesthesia [...] evaluation report is provided to requesting physician. [facility] Preop Guidelines documented in this encounter Nursing [...] bilateral lead extensions SURGEON: Gonzalez Rowland MD Bond Writer: Arline Hutson NP PROCEDURE: The patient was [...] MAR Action Action Date Dose Rate Site fentaNYL (SUBLIMAZE) injection Given 09/16/2014 9:50 AM CDT 50 m cg 25-50 mcg 25-50 mcg, Intravenous, EVERY 2 MIN [...] Provider: Pavel Miner) Routine, 2 g, Intravenous, PRE-OP/PRE-TX OCEDURE, Starting on Mon09/16/14 at 0638, For [...] (Given - Provider: Gonzalez Rowland) PRN, Starting 4/28/15 at 0742, Intra-procedure ceFAZolin 1000 mg, gentamicin 120 mg in 0.9% NaCl 1000 mL irrigation (CANCELED) 0741 (Given - Provider: Gonzalez Rowland - Comment: PRN) PRN, Starting Mon09/16/14 at 0741, Intra-procedure fentaNYL (SUBLIMAZE) injection 25-50 mcg (CANCELED) 0913 (Given - Provider: Naima Hearn RN)0950 (Given - Provider: Marcela Lehman, JAMAL) 25-50 mcg, Intravenous, EVERY 2 MIN PRN, Starting Mon09/16/14 at 0834, other, acute pain while in PACU., MAX cumulative dose = 250 mcg. Use Fentanyl initially, as a short acting agent for acute pain con trol. If insufficient, or a longer actin g agent is needed, begin Morphine or Hydromorphone if ordered., PACU ondansetron (ZOFRAN) injection 4 mg (CANCELED) 09 (Given - Provider: Naima Hearn RN) 4 mg, Intravenous, EVERY 30 MIN [...] Post-procedure documented in this encounter Care Teams Satellite Project Site Monitor Relationship Specialty Start Date End Date Lurdes Thomas MD PCP - General Internal Medicine 06/11/14 12/16/20 documented as of this encounter
--- OUTSIDE RECORDS SUMMARY | 2021-12-28 12:15 | XMS_ITS | Encounter Summary ---
:1955 Author Organization [facility] Address [address] [facility] [address] Care Team Providers Name Role Phone Lurdes Thomas MD Primary Care Provider [phone] Reason for Visit Auth/Cert - Closed Specialty Diagnoses / Procedures Referred By Contact Refer red To Contact Surgery Diagnoses PARKINSONS DISEASE Sh Periop Services Procedures IMPLANT PULSE GENERATOR SUBCUTANEOUS [address] [place] [address] Phone: Referral ID Status Reason Start Date Expiration Date Visits Requ ested Visits Authorized [id number] Closed 1 1 Encounter Details Date Type Department Care Team Description 09/16/2014 Anesthesia Event [facility] Jacquie Coughlin ANESTHESIOLOGY [address] [id number] Simone PeriOP Ser Rogelio Gee MD [facility] [address] [id number] [address] [place] [address] Anesthesia Record Procedure Summary Procedure Name Responsible Anesthesia Start Anesthesia Stop Anesthesiologist Time Time BILATERAL LEAD EXTENSION Jacquie Coughlin 09/16/14 0723 5 0852 AND RIGHT INFRACLAVICULAR PULSE GENERATOR PLACEMENT ([employer]) (N/A Chest) Events Date Time Event Comment 09/16/2014 0721 0723 An Start 0723 MD Present 0723 Quick Note Pt took his home 8am dose of Sinemet before going into surgery. 0725 An Start Data 0730 An Induction 0735 An Intubation 0736 AN START SEVO 0805 AN INCISION 0829 AN END SEVO 0843 AN Extubation 0845 an stop data 0852 An Stop Electronically s igned by Allison Contreras on September 16, 2014 8:52 AM Name Total ePHEDrine 5 mg/mL 5 mg fentanyl 50mcg/mL 100 mcg glycopyrrolate 0.2mg/mL 0.8 mg lidocaine 2% 60 mg midazolam 1mg/mL 2 mg neostigmine 1mg/mL 5 mg ondansetron 2mg/mL 4 mg propofol 10mg/mL 180 mg rocuronium 10mg/mL 50 mg ceFAZolin (ANCEF) intermittent infusion 2 g (pre-mix) 2 g LR 1,300 mL Agents Name O2 N2O Air Exp Sevoflurane Ins Sevoflurane Blood No blood administrations on file. Lines, Drains, and Airways Type Details Placement Removal Incision/Surgical Site 09/09/14; 1013; 09/09/14 1013 by Bilateral; Head Abi Reyes RN Incision/Surgical Site 09/16/14; 0824; Right; 09/16/14 0824 by Chest Usha Carl RN Incision/Surgical Site 09/16/14; 0824; Right; 09/16/14 0824 by Head Usha Carl RN Peripheral IV 09/16/14; 0725; 20 G; 09/16/14 0725 by 09/16/14 1121 by Left; Hand; Alcohol; Allison Contreras, MARISOL Cooper by, Raya, Injectable; Tolerated BASILIO BERRY well RETIRED ETT 09/16/14; 0735; Mask 09/16/14 0735 by 09/16/14 0 843 by Ventilation: Easy; Allison Contreras APRN Haider, Heidi M, Ease of Intubation: BASILIO DAMON CRNA Easy; Airway Size: 8; Cuffed; Oral; Blade Type: Amaya; Blade Size: 4; Place by: GYPSY; Insertion Attempts: 1; Secured at (cm)to lip: 26 cm; Breath Sounds: Equal, clear and bilateral; End Tidal CO2: Present; Dentition: Intact; Grade View of Cords: 1 documented in this encounter Social History [...] PM CDT documented as of this encounter OR Notes Anesthesia Postprocedure Evaluation - Jacquie Coughlin - 09/16/2014 1:03 PM CDT Anesthesia Post-Evaluation Note Patient: Andrew Pang Patient location: PACU Procedure(s) Performed: Procedure(s) with comments: IMPLANT PULSE GENERATOR SUBCUTANEOUS - BILATERAL LEAD EXTENSION AND RIGHT INFRACLAVICULAR PULSE GENERATOR PLACEMENT ([employer]) Anesthesia type: General, ETT Post Op Diagnosis: * No post-op diagnosis entered * No value filed. Patient Condition Respiratory Function (RR / SpO2 / Airway Patency): Satisfactory Cardiac Function (HR / Rhythm / BP): Satisfactory Mental Status: Satisfactory. Able to fully participate in evaluation Temperature: Satisfactory Pain Control: Satisfactory PONV: None Beta-Ijeoma Therapy: None indicated Hydration Status: Satisfactory Last Vitals: Filed Vitals: 09/16/14 1000 09/16/14 1015 09/16/14 1030 BP: 120/88 109/82 124/78 Temp: 36.6 ??C (97.8 ??F) Resp: 12 15 12 SpO2: 93% 94% 93% Additional Comments: Anesthesia Preprocedure Evaluation - Rogelio Conti MD - 09/16/2014 6:15 AM CDT Procedure: Procedure(s): IMPLANT PULSE GENERATOR SUBCUTANEOUS Preop diagnosis: PARKINSONS DISEASE No Known Allergies Past Medical History Diagnosis Date ??? Parkinson disease ? ? Hyperlipidemia LDL goal < 130 ??? Angina at rest ??? Sleep apnea Past Surgical History Procedure Laterality Date ??? Hernia repair age 11 ??? Discectomy cervical minimally invasive one level 1999 ??? Optical tracking system insertion deep brain stimulation bilateral Bilateral 09/09/2014 Procedure: OPTICAL TRACKING SYSTEM INSERTION DEEP BRAIN STIMULATION BILATERAL; Surgeon: Gonzalez Rowland MD; Location: OR Prior to Admission medications Medication Sig Start Date End Date Taking? Authorizing Provider oxyCODONE-acetaminophen (PERCOCET) 5-325 MG per tablet Take 1-2 tablets by mouth every 4 hours as needed for moderate to severe pain 09/08/14 Arline Hutson APRN CNP vitamin D (ERGOCALCIFEROL) 94225 UNIT capsule Take 1 capsule (50,000 Units) by mouth every 7 days 08/26/14 Lurdes Thomas MD hydrochlorothiazide (HYDRODIURIL) 25 MG tablet Take 1 tablet (25 mg) by mouth daily 08/25/14 Lurdes Thomas MD pravastatin (PRAVACHOL) 80 MG tablet Take 1 tablet (80 mg) by mouth daily 08/20/14 Lurdes Thomas MD rotigotine (NEUPRO) 8 MG/24HR Place 1 patch onto the skin daily Reported, Patient amantadine (SYMMETREL) 100 MG capsule Take 100 mg by mouth 2 times daily Reported, Patient omeprazole 20 MG tablet Take 20 mg by mouth daily as needed Take 30-60 minutes before a meal. 06/11/14 Lurdes Thomas MD citalopram (CELEXA) 10 MG tablet Take 10 mg by mouth daily. Reported, Patient entacapone (COMTAN) 200 MG tablet Take 200 mg by mouth 4 times daily Takes at sames at Sinemet CR 0600 1000 1430 1900 Reported, Patient carbidopa-levodopa (SINEMET) 25-100 MG per tablet Take 1 tablet by mouth 3 times daily as needed Reported, Patient sildenafil (VIAGRA) 50 MG tablet Take 1 tablet by mouth daily as needed for erectile dysfunction. 10/15/10 Lurdes Thomas MD carbidopa-levodopa (SINEMET CR) 50-200 MG per tablet Take 1 tablet by mouth 4 times daily Takes at 0600 1000 1430 1900 04/12/10 Lurdes Thomas MD No current [facility]-ordered facility-administered medications on file. No current Epic-ordered outpatient prescriptions on file. Wt Readings from Last 1 Encounters: 09/10/14 97.3 kg (214 lb 8.1 oz) Temp Readings from Last 1 Encounters: 09/10/14 36.3 ??C (97.3 ??F) Oral BP Readings from Last 6 Encounters: 09/10/14 126/74 09/10/14 126/74 09/08/14 152/84 08/25/14 120/70 08/11/14 124/68 07/17/14 124/81 Pulse Readings from Last 4 Encounters: 09/08/14 90 08/25/14 80 08/11/14 80 07/17/14 94 Resp Readings from Last 1 Encounters: 09/10/14 21 SpO2 Readings from Last 1 Encounters: 09/10/14 96% Recent Labs Lab Test 09/09/14 0610 08/25/14 1308 06/11/14 0905 NA -- 137 139 POTASSIUM 3.4 3.5 4.7 CHLORIDE -- 100 104 CO2 -- 28 31 ANIONGAP -- 9 4 GLC -- 132* 102* BUN -- 18 21 CR -- 0.77 0.82 ROLAND -- 9.3 9.1 Recent Labs Lab Test 09/09/14 0610 06/11/14 0905 WBC -- 4.8 HGB 14.8 15.4 PLT -- 205 No results for input(s): INR in the last 36903 hours. Invalid input(s): APTT RECENT LABS: ECG: ECHO: Lexiscan (06/25/14) : Impression 1. Myocardial perfusion imaging using single isotope technique demonstrated no evidence of ischemia or infarction. 2. Gated images demonstrated normal-sized left ventricle with normal wall motion. The left ventricular systolic function is normal with ejection fraction 62 per. ECHO (06/25/14): normal, EF 55-60% CXR: Anesthesia Evaluation . ROS/MED HX ENT/Pulmonary: (+)sleep apnea, , . . Neurologic: (+)Parkinson's disease Cardiovascular: (+) Dyslipidemia, . : . . . :. . Previous cardiac testing date:results:Stress Testdate: results:Lexiscan (06/25/14) : Impression 1. Myocardial perfusion imaging using single isotope technique demonstrated no evidence of ischemia or infarction. 2. Gated images demonstrated normal-sized left ventricle with normal wall motion. The left ventricular systolic function is normal with ejection fraction 62 per. ECHO (06/25/14): normal, EF 55-60% date: results: date: results: METS/Exercise Tolerance: Hematologic: Musculoskeletal: (+) other musculoskeletal- DDD GI/Hepatic: (+) GERD Renal/Genitourinary: Endo: Psychiatric: Infectious Disease: Malignancy: Other: Physical Exam Airway Mallampati: II TM distance: >3 FB Neck ROM: full Dental (+) chipped Cardiovascular Pulmonary Other findings: Chipped back upper right Anesthesia Plan ASA Score: 2 . Plan for General and ETT - with Intravenous and Propofol induction.Maintenance will be Balanced. Routine analgesia and antiemetics to be used for post-operative care. Anesthetic plan, risks, benefits and alternatives discussed with: patient or accounts payable representative. . History & Physical Review History and physical reviewed and following examination; no interval change. . documented in this encounter Miscellaneous Notes Anesthesia Care Transfer Note - Allison Contreras APRN CRNA - 09/16/2014 8:52 AM CDT Anesthesia Care Transfer Note Patient: Andrew Pang Transferred to: PACU Patient vital signs: stable Airway: none documented in this encounter Plan of Treatment Not on filedocumented as of this encounter Visit Diagnoses Not on filedocumented in this encounter Administered Medications Inactive Administered Medications - up to 3 most recent administrations Medication Order MAR Action Action Date Dose Rate Site ceFAZolin (ANCEF) intermittent Given 09/16/2014 7:42 AM CDT 2 g infusion 2 g (pre-mix) Routine, 2 g, Intravenous, PRE-OP/PRE-PROCEDURE, Starting on Mon09/16/14 at 0638, For 1 dose, Give first dose within 1 hour PRIOR to incision. If patient weight is greater than or equal to 120 kg change dose to 3 g., Indications: Perioperative Pharmacoprophylaxis, Pre-procedure ePHEDrine in 0.9% NaCl injection (dilute d) Given 09/16/2014 8:00 AM CDT 5 mg PRN, Starting on Mon09/16/14 at 0800, Anesthesia Intra-op fentaNYL (SUBLIMAZE) injection Given 09/16/2014 7:31 AM CDT 100 mcg PRN, moderate to severe pain, Starting on Mon09/16/14 at 0731, Anesthesia Intra-op glycopyrrolate (ROBINUL) injection Given 09/16/2014 8:27 AM CDT 0.8 mg PRN, Starting on Mon09/16/14 at 0827, Anesthesia Intra-op lactated ringers infusion New Bag 09/16/2014 8:22 AM CDT Intravenous, CONTINUOUS PRN, Anesthesia Intra-op, Starting on Mon09/16/14 at 0725, Until Mon09/16/14 at 0852 New Bag 09/16/2014 7:25 AM CDT lidocaine injection 2% (V) Given 09/16/2014 7:31 AM CDT 60 mg PRN, Starting on Mon09/16/14 at 0731, Anesthesia Intra-op midazolam (VERSED) injection Given 09/16/2014 7:30 AM CDT 2 mg PRN, anxiety, Starting on Mon09/16/14 at 0730, Anesthesia Intra-op neostigmine (PROSTIGMINE) injection Given 09/16/2014 8:27 AM CDT 5 mg Intravenous, PRN, Starting on Mon09/16/14 at 0827, Anesthesia Intra-op ondansetron (ZOFRAN) injection Given 09/16/2014 8:22 AM CDT 4 mg PRN, nausea, vomiting, Administer over 2-5 Minutes, Starting on Mon09/16/14 at 0822, Anesthesia Intra-op propofol (DIPRIVAN) injection 10 mg/mL v ial Given 09/16/2014 7:31 AM CDT 180 mg PRN, Starting on Mon09/16/14 at 0731, Anesthesia Intra-op rocuronium (ZEMURON) injection Given 09/16/2014 7:32 AM CDT 50 mg PRN, Starting on Mon09/16/14 at 0732, Anesthesia Intra-op documented in this encounter Care Teams Incident Commander Relationship Specialty Start Date End Date Lurdes Thomas MD PCP - General Internal Medicine 06/11/14 12/16/20 documented as of this encounter
--- OUTSIDE RECORDS SUMMARY | 2021-12-28 12:15 | XMS_ITS | Encounter Summary ---
:1955 Author Organization [facility] Address [address] [place] [address]. [place] [address] Care Team Providers Name Role Phone Lurdes Thomas MD Primary Care Provider [phone] Samantha Stauffer MD Primary Care Provider [phone] Encounter Details Date Type Department Care Team Description 08/09/2020 Documentation Only INTERFACED REPORT Unknown, Provider Social History Tobacco Use Types Packs/Day Years [...] on filedocumented in this encounter Care Teams Health Care Consultant Relationship Specialty Start Date End Date Lurdes Thomas MD PCP - General Internal Medicine 06/11/14 12/16/20 Samantha Stauffer MD PCP - General Family Medicine 12/17/[address] [address] documented as of this encounter
--- OUTSIDE RECORDS SUMMARY | 2021-12-28 12:15 | XMS_ITS | Encounter Summary ---
:1955 [facility] [address] [address] Care Team Providers Name Role Phone Unavailable Primary Care Provider Unavailable Encounter Details Date Type Department Care Team Description 07/31/2007 Hospital Encounter [facility] Nela Soriano, RN [address], [place] [address] Social History Tobacco Use Types Packs/Day Years Used Date Smoking Tobacco: Never Assessed Sex Assigned at Date Recorded Not on file documented as of this encounter Progress Notes Sandrine Martinez, PT - 07/31/2007 12:01 AM CDT Physical Therapy Parkinson Evaluation Referring Physician: Dr. Maria Esther Phan. Primary Diagnosis: Parkinson's Disease (332.0). Reason for Referral: Team Assessment (Physical Therapist, Occupational Therapist, Speech and Language Pathologist, Camp Housekeeper, Registered Nurse). Orders: Evaluate and treat. Exacerbation Date: 08/21/2007 Initial Certification Dates: 08/23/2007 to 09/21/07 SUBJECTIVE: Mobility Limitations Reported: Denies limitations. Balance/Falls in past 6 months: None reported. Motor Fluctuations: No. Pain Screen: No pain. Past Medical History: Unremarkable per patient report. Support System: Lives with primary lead caregiver. Living Situation: Private home, more than 1 level. [facility] Living Environment: Urban-mostly paved areas to ambulate. Community Mobilities: Driving-unrestricted. Frequency of Outings: Leaves home on a daily basis. Leisure Activities: Plays guitar. Formal Exercises: Walking-treadmill or indoors. Weight lifting. Yoga. Exercise Frequency: Several times per week. Communication: Clear. 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 Travels several times a year. Patient's Therapy Goal: Take home ideas for exercises to deal with PD symptoms/prevention. OBJECTIVE: Behavioral Characteristics: Alert. Tremor Observed: Mild. -Timing: Intermittent. -Position: Resting. -Area(s) Affected: Right upper extremity. Rigidity: (UPDRS) (Judged on passive movement of major joints with pt relaxed in sitting positions. Cogwheeling to be ignored). 2-Mild to moderate. affecting primarily right leg Body Bradykinesia and Hypokinesia: (UPDRS) (Combining slowness, hesitancy, decreased armswing, small amplitude, and poverty of movement in general) 1=Minimal slowness, giving movement a deliberate character, could be normal for some persons. Possible reduced amplitude. Range of Motion: Grossly within normal limits. Spine minimally restricted. Scapular mobility minimally restricted. Muscle Strength Deficits: Grossly within normal limits. Posture/Alignment: (Gross Assessment) Unremarkable. Transfers: -Sit to stand: Safe and independent. -Stand to sit: Safe and independent. -Bed mobility: Safe and independent. Functional Testing: -Five Times Sit to Stand Test (FTSST): (above 15 seconds considered abnormal for older adults) - 13 seconds. -Timed Up and Go Test (TUG): (Subject stands from arm chair, walks 3 meters (9 feet 10 inches), and sits back down in chair. Test is timed. Scores of young adults<10 seconds, older adults taking >=13.5 seconds classified as fallers with prediction rate of 90%, >30 second indicative of significant difficulties with ADL's) - 7 seconds. -30 Sec Sit Stands: 13+ - low fall risk. -Divided Attention TUG: -TUG Motor: 8.3 seconds. -TUG Motor+Cognitive: 8.4 seconds. Gait: -Gait Velocity (Distance/Time; <=2.5 ft/sec considered high fall risk): 4.75 ft/second. Balance: Biomechanical Constraints: -Base of support: Normal -Center of Mass alignment: Normal anterior/posterior and medial/lateral. -Ankle Strength and ROM: Able to stand on toes at maximal height and stand on heels with front of foot up. -Hip/Trunk Lateral Strength: Normal: Abducts both hips to lift foot off the floor for 10 seconds keeping trunk vertical. Reactive Postural Response - In Place: -Forward: (Isometric push back from shoulders with quick release): Recovers stability with ankles, no added arm or hip motion. -Backward (Isometric push forward then scapulae with quick release): Recovers stability with ankles, no added arm or hip motion. Fall recovery: Independent in getting up from the floor/ground. Joya Balance Scale: 56/56. (56= Good balance.<=45 mild risk of falls. <36=high risk for falls). Percent Probability of falling based on Beg Score and fall history - Little/none%. ASSESSMENT: Physical Therapy Practice Pattern: Impaired motor function, sensory integration associated with disorder central nervous system (5E). Impairments: Bradykinesia. Knowledge deficit. Muscle rigidity. ROM limitations. Functional Limitations: -Knowlege deficit regarding appropriate exercise program for PD. Possible Barriers to Goal Achievement: None apparent. Rehab Prognosis: Excellent. PLAN Planned Treatment: Discussed recommendations regarding HEP based on evidence in PD research related to exercise. Recommended treadmill training 3 times a week at training heart rate 45 min. Encouraged to continue yoga DVD and consider taking a class. Encouraged to continue present weight training regimen as well. Frequency/Duration: 1X visit. Discharge Plan: Satisfactory goals are achieved. Consent: Results of evaluation were reviewed with patient. Patient was receptive to treatment plan and participated in setting goals. Risks, benefits and alternatives to treatment were reivewed. Expected Functional Outcomes: -Patient/Carepartner to verbalize understanding of physical therapy recommendations in 1 session. -Patient to demonstrate independence of home exercise program in 1 session. TREATMENT TODAY -Evaluation. -Home exercise instructions Patient/Carepartner instructed in: -Home program. Resources Issues: -Exercise handouts. Procedures: Physical Therapy Evaluation (CPT 33301) Therapeutic Exercise (CPT 79055) 30 minutes TOTAL TREATMENT TIME: 60 minutes. Electronically signed by: Sandrine Martinez, PT, [id number], 08/23/2007 *SH~REHAB~PTPARKEVA~ Shorthand Note completed on: 08/23/2007 3:15 PM documented in this encounter Plan of Treatment Not on filedocumented as of this encounter Visit Diagnoses Not on filedocumented in this encounter
--- OUTSIDE RECORDS SUMMARY | 2021-12-28 12:15 | XMS_ITS | Encounter Summary ---
:1955 Author Organization [facility] Address [address] [place] [address]. [place] [address] Care Team Providers Name Role Phone Lurdes Thomas MD Primary Care Provider [phone] Reason for Visit Reason Onset Date [facility] F/U 09/11/2014 Parkinsons Disease, S/P Deep Brain Stimulator Placement, S/P Deep Brain Stimulato r Placement, 09/10/14, 0 Encounter Details Date Type Department Care Team Description 09/11/2014 Telephone [facility] F/U 1440 [facility] MD [place] (Parkinsons Disease, [place] [address] [facility] S/P Deep Brain [phone] [place] Stimulator Placement, 8871 [facility] S/P Deep B rain Stimulator Placement, [place], [place] [address] 09/10/14, 0 ) [phone] (Wo rk) Social History Tobacco Use Types [...] this encounter Miscellaneous Notes Telephone Encounter - Chanell Villa, RN - 09/15/2014 4:24 PM CDT ED / Discharge Outreach Protocol Patient Contact Attempt # 2 Was call answered? No. Left message on voicemail with information to call me back. Maggie women's activities adviser Nurse Telephone Encounter - Kiara Oviedo RN - 09/11/2014 12:52 PM CDT ED / Discharge Outreach Protocol Patient Contact Attempt # 1 Was call answered? No. Left message on voicemail with information to call me back. Telephone Encounter - Josy Garza - 09/11/2014 10:53 AM CDT Please contact patient for In-patient follow up. [phone] (home) None (work) Visit date: 09/10/14 Diagnosis listed:Parkinsons Disease, S/P Deep Brain Stimulator Placement, S/P Deep Brain Stimulator Placement Number of visits in past 12 months:0/1 documented in this encounter Plan of Treatment Not on filedocumented as of this encounter Visit Diagnoses Not on filedocumented in this encounter Care Teams Embossing Calender Operator Relationship Specialty Start Date End Date Lurdes Thomas MD PCP - General Internal Medicine 06/11/14 12/16/20 documented as of this encounter
--- OUTSIDE RECORDS SUMMARY | 2021-12-28 12:15 | XMS_ITS | Encounter Summary ---
:1955 Author Organization [facility] Address [address] [place] [address]. [place] [address] Care Team Providers Name Role Phone Lurdes Thomas MD Primary Care Provider Reason for Visit Reason Onset Date Comments Panel Management 11/19/2014 Colonoscopy Encounter Details Date Type Department Care Team Description 11/19/2014 Telephone [facility] Lurdes Oh Panel Management 1440 [facility] MD [place] (Colonoscopy) [place] [address] [facility] [phone] [address] (Wo rk) Social History Tobacco Use [...] Notes Telephone Encounter - Lucina Velasquez - 12/01/2014 1:54 PM CDT Mailed patient reminder letter that he is due for colonoscopy. Telephone Encounter - Tamy Leahy LPN - 11/19/2014 2:38 PM CDT Panel Management Review Date of last visit with a [facility] provider: Dr Thomas on 09/22/14. Date of next visit with a [facility] provider: None. Problem List Patient Active Problem List Diagnosis ??? Parkinson disease ? ? Hyperlipidemia LDL goal < 130 ??? Restless leg syndrome ??? DDD (degenerative disc disease), cervical ??? Prediabetes ??? GERD (gastroesophageal reflux disease) ??? LATISHA (obstructive sleep apnea) ??? S/P deep brain stimulator placement Health Maintenance List Health Maintenance Topic Date Due ??? ADVANCE DIRECTIVE PLANNING Q5 YRS (NO INBASKET) 1974 ??? COLON CANCER SCREEN (SYSTEM ASSIGNED) 2006 ??? INFLUENZA VACCINE (SYSTEM ASSIGNED) 01/20/2015 ??? TETANUS IMMUNIZATION (SYSTEM ASSIGNED) 01/11/2016 ??? LIPID SCREEN Q5 YR MALE (SYSTEM ASSIGNED) 09/20/2017 For diabetic patients with hyperlipidemia, only choose diabetes. Patient has the following on his problem list: Hyperlipidemia LDL goal on problem list: <130 Last LDL: LDL CHOLESTEROL CALCULATED Date Value Ref Range Status 09/20/2012 95 0 - 129 mg/dL Final Comment: LDL Cholesterol is the primary guide to therapy: LDL-cholesterol goal in high risk patients is <100 mg/dL and in very high risk patients is <70 mg/dL. LDL tested: Passed Tobacco : Passed Composite cancer screening Chart review shows that this patient is due/due soon for the following Colonoscopy and Fecal Colorectal (FIT) Tobacco History History Smoking status ??? Never Smoker Smokeless tobacco ??? Never Used Summary: Patient is due/failing the following: COLONOSCOPY Action needed: Patient needs office visit for Colonoscopy/FIT. Type of outreach: Sent Enohm message. Questions for provider review: None Please indicate office visit, lab, MTM, or nurse appt if needed. Indicate fasting or not fasting. Tamy Leahy LPN Chart routed to Care Team . documented in this encounter Plan of Treatment Not on filedocumented as of this encounter Visit Diagnoses Not on filedocumented in this encounter Care Teams 411 Directory Assistance Operator Relationship Specialty Start Date End Date Lurdes Thomas MD PCP - General Internal Medicine 06/11/14 12/16/20 documented as of this encounter
--- OUTSIDE RECORDS SUMMARY | 2021-12-28 12:15 | XMS_ITS | Encounter Summary ---
:1955 Author Organization [facility] Address [address] [place] [address]. [place] [address] Care Team Providers Name Role Phone Lurdes Thomas MD Primary Care Provider Reason for Referral Medication Prior Authorization (Routine) - Closed Specialty Diagnoses / Procedures Referred By Contact Refer red To Contact Diagnoses Hyperlipidemia with target LDL less than 130 Lurdes Thomas MD [address] [address] Referral ID Status Reason Start Date Expiration Date Visits Requ ested Visits Authorized [id number] Closed Reason for Visit Reason Onset Date Comments Refill Request 10/20/2015 PRAVASTATIN 80MG Encounter Details Date Type Department Care Team Description 10/20/2015 Refill [facility] Lurdes Rojas Refill Request 1440 Demian Laughlin MD (PRAVASTATIN 80MG) [place] [address] [facility] [phone] [place] [address] [place] [phone] (Wo rk) Social History Tobacco Use [...] Notes Telephone Encounter - Lucina Velasquez - 02/22/2016 12:12 PM CDT 2nd attempt to contact patient. Left vm for patient to call us back. He is due for physical and fasting labs. Telephone Encounter - Lucina Velasquez - 02/08/2016 11:40 AM CDT Sent patient a mychart to schedule appointment. Telephone Encounter - Chanell Villa RN - 10/23/2015 9:10 AM CDT Pt will be due for px after 02/13/16 & need fasting labs as well. Refilled for 6 months. Please advise pt. Maggie singer and unloader Nurse Telephone Encounter - Julisa Hayden - 10/20/2015 11:53 AM CDT PRAVASTATIN 80MG Last Written Prescription Date: 04/13/2015 Last Fill Quantity: 90, # refills: 1 Last Office Visit with [facility] or [facility] prescribing provider: 02/12/2015 CHOL 219 11/25/2014 HDL 65 11/25/2014 LDL 123 11/25/2014 TRIG 153 11/25/2014 CHOLHDLRATIO 3.4 11/25/2014 documented in this encounter Plan of Treatment Not on filedocumented as of this encounter Visit Diagnoses Diagnosis Hyperlipidemia with target LDL less than 130 - Primary Other and unspecified hyperlipidemia documented in this encounter Care Teams Centrifugal Screen Tender Relationship Specialty Start Date End Date Serum, Lurdes [place], MD PCP - General Internal Medicine 06/11/14 12/16/20 documented as of this encounter
--- OUTSIDE RECORDS SUMMARY | 2021-12-28 12:15 | XMS_ITS | Encounter Summary ---
:1955 Author Organization [facility] Address [address] [place] [address]. [place] [address] Care Team Providers Name Role Phone Lurdes Thomas MD Primary Care Provider [phone] Encounter Details Date Type Department Care Team Description 08/08/[address] [facility] [place] [facility] [address] [place] [address] Social History Tobacco Use Types Packs/Day Years [...] on filedocumented in this encounter Care Teams Project Management Professional Relationship Specialty Start Date End Date Lurdes Thomas MD PCP - General Internal Medicine 06/11/14 12/16/20 documented as of this encounter
--- OUTSIDE RECORDS SUMMARY | 2021-12-28 12:15 | XMS_ITS | Encounter Summary ---
:1955 [facility] Address [address] [place] [address] Care Team Providers Name Role Phone Unavailable Primary Care Provider Unavailable Encounter Details Date Type Department Care Team Description 05/06/2008 Hospital Encounter CONV METH PKDNela Arellano, RN [address] [place], [place] [address] Social History Tobacco Use Types Packs/Day Years Used Date Smoking Tobacco: Never Assessed Sex Assigned at Date Recorded Not on file documented as of this encounter Medications at Time of Discharge Medication Sig Dispensed Refills Start Date End Date unknown medication Indications: PN: 0 12/04/2007 08/17/2009 unknown medication Indications: PN: 0 07/31/2007 08/17/2009 documented as of this encounter Plan of Treatment Not on filedocumented as of this encounter Visit Diagnoses Not on filedocumented in this encounter
--- OUTSIDE RECORDS SUMMARY | 2021-12-28 12:15 | XMS_ITS | Encounter Summary ---
:1955 Author Organization [facility] Address [address] [facility] [place] [address] Care Team Providers Name Role Phone Lurdes Thomas MD Primary Care Provider [phone] Encounter Details Date Type Department Care Team Description 11/25/2014 Orders Only [facility] an Hyperlipidemia LDL goal < 1440 [place] [address] [place] [address] Social History Tobacco Use Types Packs/Day Years [...] Name Priority Date/Time Associated Diagnosis Comme nts LIPID REFLEX TO Routine 11/25/2014 7:57 AM Hyperlipidemia LDL goal Results for this DIRECT LDL PANEL CDT < 130 procedure a re in the results section. documented in this encounter Results (ABNORMAL) Lipid Profile with reflex to direct LDL (11/25/2014 7:57 AM CDT) athologist Signature Cholesterol 219 (H) <200 mg/dL [facility] Comment: LDL Cholesterol is the primary guide to therapy. The NCEP recommends further evaluation of: patients with cholesterol greater than 200 mg/dL if additional risk facto rs are present, cholesterol greater than 240 mg/dL, triglycerides greater than 1 50 mg/dL, or HDL less than 40 mg/dL. Triglycerides 153 (H) 0 - 150 mg/dL [facility] Comment: Fasting specimen HDL Cholesterol 65 >40 mg/dL [facility] LDL Cholesterol Calculated 123 0 - 129 mg/dL [facility] Comment: LDL Cholesterol is the primary guide to therapy: LDL-cholesterol goal in high risk patients is <100 mg/dL and in very high risk patients is <70 mg/dL. VLDL-Cholesterol 31 (H) 0 - 30 mg/dL [facility] A[address] [facility] Cholesterol/HDL Ratio 3.4 0.0 - 5.0 [facility] Specimen Anatomical Collection Method Collection Time Receive d Time (Source) Location / / Volume Laterality Blood specimen 11/25/2014 7:57 AM 015 7:58 (specimen) CDT AM CDT Lurdes Thomas MD LAB - BLOOD ORDERABLES Performing Organization Address City/State/ZIP Code Phon e Number [facility] [address] [place] [address] documented in this encounter Visit Diagnoses Diagnosis Hyperlipidemia LDL goal < 130 Other and unspecified hyperlipidemia documented in this encounter Care Teams Director Of Flight Operations Relationship Specialty Start Date End Date Lurdes Thomas MD PCP - General Internal Medicine 06/11/14 12/16/20 documented as of this encounter
--- OUTSIDE RECORDS SUMMARY | 2021-12-28 12:15 | XMS_ITS | Encounter Summary ---
:1955 Author Organization [facility] Address [address] [place] [address]. [place] [address] Care Team Providers Name Role Phone Lurdes Thomas MD Primary Care Provider [phone] Reason for Visit Reason Onset Date Comments Other 11/13/2014 Battery moving in [facility] Encounter Details Date Type Department Care Team Description 11/13/2014 Telephone [facility] Gonzalez Rowland Other (Ba ttroberto carlos moving [facility] MD Tylor in chest) [place] XX RESIGNED XX [address] [facility] [address] [place] [address] [place] [address] [place] [address] [place] [address] [phone] Social History Tobacco Use Types Packs/Day Years [...] this encounter Miscellaneous Notes Telephone Encounter - Rachel Cuadra, MARISOL ARTISTS' BOOKING REPRESENTATIVE - 11/13/2014 3:03 PM CDT Pt called stating that he feels like that DBS battery is moving. He denies any pain or signs of infection. He states that the DBS is working very well for him. It was explained that there is swelling post surgery and after the swelling subsides the IPG may feel like it has moved. He states that he is doing well otherwise. He was advised to call with any further questions or issues. Telephone Encounter - Judi Crane - 11/13/2014 1:40 PM CDT Pt. Called in to speak w/ Dr. Rowland regarding hid DBS battery moving around in his chest. Could you give him a call back to discuss this since Dr. Skinner is out of the office until Monday? Thanks documented in this encounter Plan of Treatment Not on filedocumented as of this encounter Visit Diagnoses Not on filedocumented in this encounter Care Teams Liability Analyst Relationship Specialty Start Date End Date Lurdes Thomas MD PCP - General Internal Medicine 06/11/14 12/16/20 documented as of this encounter
--- OUTSIDE RECORDS SUMMARY | 2021-12-28 12:15 | XMS_ITS | Encounter Summary ---
:1955 Author Organization [facility] Address [address] [facility] [place] [address] Care Team Providers Name Role Phone Lurdes Thomas MD Primary Care Provider [phone] Reason for Visit Reason Comments Neurologic Problem Staple Removal Encounter Details Date Type Department Care Team Description 09/22/2014 Office Visit [facility] Rachel Cuadra, CHILD CARE TEAM LEAD BLOCK HAND [facility] [address] [place] [address] [place] [address] S/P deep brain [facility] Arline Peñaloza, MARISOL BLOCK HAND [address] [place] [address] stimulator placement Vivian (Primary Dx) [address] [address] Social History Tobacco Use Types Packs/Day Years [...] Sign Reading Time Taken Comments Blood Pressure 150/88 09/22/2014 10:30 AM CDT Pulse 92 09/22/2014 10:30 AM CDT Temperature - - Respiratory Rate - - Oxygen Saturation - - Inhaled Oxygen Concentration - - Weight - - Height - - Body Mass Index - - documented in this encounter Patient Instructions Patient InstructionsArline Hutson APRN CNP - 09/22/2014 10:47 AM CDT - Return to clinic as needed only. - Contact clinic if concerned about incisions. documented in this encounter Progress Notes Arline Hutson APRN CNP - 09/22/2014 10:40 AM CDT Suture/Staple removal visit note: S: Andrew Pang returns to clinic for staple removal after DBS lead extension and generator placement by Dr. Rowland. Patient has minimal pain, denies perioperative issues over the past week and has no current concerns or questions regarding post-surgical plan of care. O: Aleida removed, wounds are healing well without erythema, fluctuation, or induration. A: Andrew returned to clinic post-op for staple removal. Patient tolerated procedure without incident. P: - Return to clinic as needed. - Keep your incision clean and dry at all times. No bathing swimming or submerging in water. Call immediately or come to ED if any drainage occurs, or you develop new pain, redness, or swelling. [facility] [place] [address] Pager [phone] Mony Meraz 09/22/2014 10:30 AM CDT Andrew Pang is a 59 year old male who presents for: Chief Complaint Patient presents with ??? Neurologic Problem Staple Removal Initial Vitals: BP 150/88 Pulse 92 Estimated body mass index is 26.31 kg/(m^2) as calculated from the following: Height as of 09/16/14: 6' 2 (1.88 m). Weight as of 09/08/14: 205 lb (92.987 kg).. There is no height or weight on file to calculate BSA. BP completed using cuff size: regular Data Unavailable Do you feel safe in your environment? Yes Do you need any refills today? No Nursing Comments: Staple Removal 4minutes nursing intake time Mony Meraz Discharge plan: Patient will f/u PRN 3minutes nursing discharge time Mony Meraz CMA signature documented in this encounter Plan of Treatment Not on filedocumented as of this encounter Visit Diagnoses Diagnosis S/P deep brain stimulator placement - Pr imary documented in this encounter Care Teams Power Electronics Engineer Relationship Specialty Start Date End Date Lurdes Thomas MD PCP - General Internal Medicine 06/11/14 12/16/20 documented as of this encounter
--- OUTSIDE RECORDS SUMMARY | 2021-12-28 12:15 | XMS_ITS | Encounter Summary ---
:1955 Author Organization [facility] Address [address] [place] [address]. [place] [address] Care Team Providers Name Role Phone Lurdes Thomas MD Primary Care Provider [phone] Samantha Stauffer MD Primary Care Provider [phone] Encounter Details Date Type Department Care Team Description 08/30/2020 Documentation Only INTERFACED REPORT Unknown, Provider Social [...] on filedocumented in this encounter Care Teams Glue Machine Operator Relationship Specialty Start Date End Date Lurdes Thomas MD PCP - General Internal Medicine 06/11/14 12/16/20 Samantha Stauffer MD PCP - General Family Medicine 12/17/[address] [address] documented as of this encounter
--- OUTSIDE RECORDS SUMMARY | 2021-12-28 12:16 | XMS_ITS | Encounter Summary ---
:1955 Author Organization [place] Address [address] [place] [address] Care Team Providers Name Role Phone Lurdes Thomas MD Primary Care Provider [phone] Reason for Visit Auth/Cert - Closed Specialty Diagnoses / Procedures Referred By Contact Refer red To Contact Surgery Diagnoses PARKINSONS DISEASE Sh Periop Services Procedures OPTICAL TRACKING SYSTEM INSERTION DEEP BRAIN STIMULATION BILATERAL [address] [place] [address] Phone: Referral ID Status Reason Start Date Expiration Date Visits Requ ested Visits Authorized [id number] Closed 1 1 Encounter Details Date Type Department Care Team Description 09/09/2014 Surgery [facility] Gonzalez Rowland BILATERAL SUBTHALMIC [place] PeriOP MD [place] NUCLEUS DEEP BRAIN Services XX RESIGNED XX STIMULATOR [address] [place] [address] [place] [id number] [phone] Surgery Details Date/Time Status Location OR Service Patient Case Case Traum a Class Class Type Case? 09/09/14 7:30 Posted OR OR M Neurosurgery Surgery AM 35 Admit Panel 1 Procedure LRB Anes Op Region Wound Class Commen ts BILATERAL Bilateral Monitor Anesthesia Head I-Clean BILATE RAL SUBTHALMIC NUCLEUS Care SUBTHA LMIC DEEP BRAIN NUCLEUS DEEP STIMULATOR BRAIN STIMULAT OR Surgeon Surgeon Role Service Panel Gonzalez Rowland MD Primary Neurosurgery 1 Arline Peñaloza APRN CNP Assisting Flap Lining Binder Shereen pretty 1 documented in this encounter Social History [...] Sign Reading Time Taken Comments Blood Pressure 139/85 09/09/2014 6:02 AM CDT Pulse - - Temperature 36.8 ??C (98.2 ??F) 09/09/2014 6:02 AM CDT Respiratory Rate 18 09/09/2014 6:02 AM CDT Oxygen Saturation 95% 09/09/2014 6:02 AM CDT Inhaled Oxygen Concentration - - Weight 95.3 kg (210 lb) 09/09/2014 6:02 AM CDT Height 188 cm (6' 2) 09/09/2014 6:02 AM CDT Body Mass Index 27.54 09/09/2014 6:02 AM CDT documented in this encounter Discharge Summaries Rachel Cuadra APRN CNP - 09/10/2014 9:19 AM CDT [facility] Discharge Summary Neurosurgery Date of Admission: 09/09/2014 Date of Discharge: 09/10/2014 Discharging Provider: Rachel Cuadra Date of Service (when I saw the patient): 09/10/2014 Discharge Diagnoses Active Problems: S/P deep brain stimulator placement History of Present Illness Andrew Pang is an 59 year old male who presented for deep brain stimulator lead placement. Pt has a history of Parkinson's disease which was not controlled despite medication trials. Hospital Course Andrew Pang was admitted on 09/09/2014. The following problems were addressed during his hospitalization: Active Problems: S/P deep brain stimulator placement Assessment: stable Plan: Follow up as scheduled for battery placement. I have discussed the following assessment and plan with the Dr. Gonzalez Rowland who is in agreement with initial plan and will follow up with further consultation recommendations. Rachel Cuadra [facility] [address] [place] [phone] Pager [phone] Significant Results and Procedures NONE Pending Results Unresulted Labs Ordered in the Past 30 Days of this Admission No orders found for last 60 day(s). Code Status Full Code Primary Care Physician Lurdes Laughlin [facility] Physical Exam Temp: 97.9 ??F (36.6 ??C) Temp src: Oral BP: 126/64 mmHg Heart Rate: 85 Resp: 22 SpO2: 96 % O2 Device: None (Room air) Filed Vitals: 09/09/14 0602 09/10/14 0500 Weight: 95.255 kg (210 lb) 97.3 kg (214 lb 8.1 oz) Vital Signs with Ranges Temp: [97.8 ??F (36.6 ??C)-99.2 ??F (37.3 ??C)] 97.9 ??F (36.6 ??C) Heart Rate: [84-99] 85 Resp: [11-32] 22 BP: (93-146)/(61-82) 126/64 mmHg SpO2: [89 %-98 %] 96 % I/O last 3 completed shifts: In: 4128.64 [P.O.:940; I.V.:3188.64] Out: 1915 [Urine:1900; Blood:15] Constitutional: Awake, alert, cooperative, no apparent distress, and appears stated age. Eyes: Lids and lashes normal, pupils equal, round and reactive to light, extra ocular muscles intact. ENT: Normocephalic, without obvious abnormality, Respiratory: No increased work of breathing, good air exchange, Skin: Cranial anni intact. Left sided facial swelling noted. Musculoskeletal: There is no redness, warmth, or swelling of the joints. Neurologic: Awake, alert, oriented to name, place and time. Cranial nerves II- XII are grossly intact. Motor is 5 out of 5 bilaterally. Neuropsychiatric: Calm, normal eye contact, alert, normal affect, oriented to self, place, time and situation, memory for past and recent events intact and thought process normal. Time Spent on This Encounter I, Rachel Cuadra, personally saw the patient today and spent greater than 30 minutes dischargingthis patient. Discharge Disposition Discharged to home Condition at discharge: Stable Consultations This Hospital Stay None Discharge Orders Reason for your hospital stay The reason you were in the hospital was for Deep Brain Stimulation Lead Placement. Follow-up and recommended labs and tests Please follow up at your scheduled times. Activity Your activity upon discharge: Discharge instructions: No lifting of more than 10 pounds until follow up visit. Ok to shampoo hair, shower or bathe, but, do not scrub or submerge incision under water until evaluated post operatively in clinic. Ok to walk as tolerated, avoid bedrest. No contact sports until after follow up visit No high impact activities such as; running/jogging, biking, snowmobile or 4 miller riding or any other recreational vehicles Call my office at [phone] for increasing redness, swelling or pus draining from the incision, increased pain or any other questions and concerns. Go to ER with any seizure activity, mental status change (increasing confusion), difficulty with speech or increasing or acute weakness Wound care and dressings Instructions to care for your wound at home: Keep your incision clean and dry at all times. OK to remove dressing on postop day 2. OK to shower on postop day 3 and allow water to run over incision, patdry after shower. No bathing swimming or submerging in water. Call immediately or come to ED if any drainage occurs, or you develop new pain, redness, or swelling. Full Code Diet Follow this diet upon discharge: Orders Placed This Encounter Advance Diet as Tolerated: Regular Diet Adult Discharge Medications Current Discharge Medication List CONTINUE these medications which have NOT CHANGED Details oxyCODONE-acetaminophen (PERCOCET) 5-325 MG per tablet Take 1-2 tablets by mouth every 4 hours as needed for moderate to severe pain Qty: 60 tablet, Refills: 0 Associated Diagnoses: S/P deep brain stimulator placement vitamin D (ERGOCALCIFEROL) 16963 UNIT capsule Take 1 capsule (50,000 Units) by mouth every 7 days Qty: 4 capsule, Refills: 2 Associated Diagnoses: Vitamin D deficiency disease hydrochlorothiazide (HYDRODIURIL) 25 MG tablet Take 1 [...] 100 mg by mouth 2 times daily omeprazole 20 MG tablet Take 20 mg by mouth daily as needed Take 30-60 minutes before a meal. Qty: 30 tablet, Refills: 1 citalopram (CELEXA) 10 MG tablet Take 10 mg by mouth daily. Associated Diagnoses: Parkinson disease entacapone (COMTAN) 200 MG tablet Take 200 mg by mouth 4 times daily Takes at sames at [facility] CR 0600 1000 1430 1900 Associated Diagnoses: Parkinson disease carbidopa-levodopa (SINEMET) 25-100 MG per tablet Take 1 tablet by mouth 3 times daily as needed Associated Diagnoses: Parkinson disease sildenafil (VIAGRA) 50 MG tablet Take 1 tablet by mouth daily as needed for erectile dysfunction. Qty: 10 tablet, Refills: 12 Comments: Please place on file, do not fill Associated Diagnoses: Erectile dysfunction carbidopa-levodopa (SINEMET CR) 50-200 MG per tablet Take 1 tablet by mouth 4 times daily Takes at 0600 1000 1430 1900 Associated Diagnoses: Parkinson disease Allergies No Known Allergies Associated attestation - Gonzalez Rowland - 10/20/2014 7:44 AM CDT Physician Attestation I, Gonzalez Rowland, personally saw and evaluated Andrew Pang as part of a shared visit. I have reviewed and discussed with the advanced practice provider their discharge plan. My yap history or physical exam findings from the day of discharge: A+Ox3 Attends Fluent Follows PERRStefan FS TM BUE 5/5 BLE 5/5 Yap management decisions made by me: 59 yo man who did well after DBS placement -wound care per instructions -activity restrictions -followup in clinic Gonzalez Rowland Date of Service (when I saw the patient): 09/10/14 documented in this encounter Discharge Instructions Discharge InstructionsSchmidt, Rachel Amato APRN CNP - 09/10/2014 9:19 AM CDT Discharge instructions: No lifting of more than 10 pounds until follow up visit as scheduled Ok to walk as tolerated, avoid bedrest. Ok to use ice to areas. No contact sports until after follow up visit No high impact activities such as; running/jogging, Biking, snowmobile or 4 miller riding or any other recreational vehicles Call my office at [phone] for increasing redness, swelling or pus draining from the incision, increased pain or any other questions and concerns. Go to ER with any seizure activity, mental status change (increasing confusion), difficulty with speech or increasing or acute weakness Keep your incision clean and dry at all times. OK to remove dressing on postop day 2. OK to shower on postop day 3 and allow water to run over incision, pat dry after shower. No bathing swimming or submerging in water. Call immediately or come to ED if any drainage occurs, or you develop new pain, redness, or swelling. documented in this encounter Medications at Time [...] Take 1 capsule 4 capsule 2 08/2602/12/2015 59567 UNIT (50,000 Units) by capsuleIndications: Vitamin mouth every 7 D deficiency disease days documented as of this encounter Progress Notes Gonzalez Rowland - 09/09/2014 10:50 AM CDT Neurosurgery We had an extensive discussion this morning in the preop area regarding the surgery including targetselection; he agrees with STN in attempt to optimize motor function and reduce medications. He understands the risks of surgery, including but not limited to: poor motor symptom improvement despite DBS, side effects such as paresthesias, dyskinesias, double vision, motor pulling, intracranial hemorrhage which could cause paralysis, coma, personality changes, or ; infection, meningitis, cerebritis, lead breakage, the need for lead removal or replacement, myocardial infarction, PE, pneumonia, cardiopulmonary arrest/. -plan for bilateral STN deep brain stimulators Gonzalez Rowland documented in this encounter H&P Notes Maeve Mejias - 09/05/2014 8:49 AM CDT This note is for the purpose of making the H&P performed in clinic within the last 30 days available in the hospital encounter. Source Note - Lurdes Thomas MD - 08/25/2014 12:38 PM CDT [address] [place] [address] Dept: [phone] PRE-OP EVALUATION: Today's date: 08/25/2014 Andrew Pang (: 1955) presents for pre-operative evaluation assessment as requested by . He requires evaluation and anesthesia risk assessment prior to undergoing surgery/procedurefor treatment of Parkinson's . Proposed procedure: Deep brain stimulator implant Date of Surgery/ Procedure: 09/09& Time of Surgery/ Procedure: 529 Hospital/Surgical Facility: [facility] Primary Physician: Lurdes Thomas Type of [...] Discectomy cervical minimally invasive one level 1999 Current Outpatient Prescriptions Medication Sig Dispense Refill [...] cardiovascular risks for perioperative complications such as ([place], PE, VFib and 3?? AV Block): No [...] evaluation report is provided to requesting physician. [facility] Preop Guidelines documented in this encounter Nursing Notes Cami Alves RN - 09/09/2014 11:55 AM CDT Ok to go to ICU per Dr Narayan. Cami Alves RN - 09/09/2014 11:17 AM CDT Called to change PO med's for parkinson's tremors. documented in this encounter Miscellaneous Notes Plan of Care - Ivelisse Mccormack RN - 09/10/2014 2:32 PM CDT Problem: Craniotomy/Craniectomy/Cranioplasty (Adult) Goal: Signs and Symptoms of Listed Potential Problems Will be Absent or Manageable (Craniotomy/Craniectomy/Cranioplasty) Signs and symptoms of listed potential problems will be absent or manageable by discharge/transitionof care (reference Craniotomy/Craniectomy/Cranioplasty (Adult) CPG). Outcome: Improving [phone] Neuro: slight tremors hands, would freeze at times with walking/transfer otherwise intact as pre hospitalization per pt. CV: Nicardipine weaned to off keeping SB/P 90-140. GI Eating well. U/O voiding. Discharge instructions reviewed and given, see paper sheets. Discharged with to skyway with w/cand volunteer Plan of Care - Nomi Manuel RN - 09/10/2014 7:39 AM CDT Problem: Goal Outcome Summary Goal: Goal Outcome Summary Outcome: Improving Vital signs stable over night. PERRL. Moves all extremities. Follows commands. Stood to void and wasup to the chair for 30 minutes. Shuffling gait that patient states is his baseline. Continue to monitor closely. Nomi Manuel RN, BSN, PHN, CCRN Plan of Care - Chloé Davalos RN - 09/09/2014 7:45 PM CDT Problem: Goal Outcome Summary Goal: Goal Outcome Summary Outcome: Improving Pt alert and oriented. Neuros remain unchanged--see flowsheet charting. Headache from procedure continues-relief with dilaudid. Tolerated dinner well. Voiding in urinal-adequate output. Nicardipine continues for blood pressure control. Able to make needs known, monitor. Plan of Care - Nasim Haddad RN - 09/09/2014 4:09 PM CDT Problem: Individualization Goal: 1. Patient Specific Preference Outcome: No Change Pt neuro exam is intact. No pronator drift noted. Pt is tolerating his diet. is at the bedside.Q1 hr neuro checks to resume. Op Note - Gonzalez Rowland - 09/09/2014 10:52 AM CDT PREOPERATIVE DIAGNOSIS: Parkinson's Disease POSTOPERATIVE DIAGNOSIS: same OPERATIVE PROCEDURE: bilateral STN deep brain stimulator placement SURGEON: Gonzalez Rowland MD Flap Lining Binder: Arline Hutson NP 59 yo man with RLE bradykinesia, increased tone, and tremor as his worst symptoms, with concomitant left hand bradykinesia, here for bilateral STN DBS. PROCEDURE: The patient was brought into the operating room and placed in supine position with her head in the passive headrest. The nexprobe and temporary star were used to register the stealth and identify the bifrontal eda hole entries , marked on the skin with a marker and scratched with an 18 gauge needle after cleaning with an alcohol swab. The entire head was prepped in the usual sterile fashion. A ioban hip drape was placed on the head and affixed overhead to the C-arm. Time out was performed. Two 7cmvertical incisions were planned centered over the bifrontal entry points and infiltrated with marcaine + epi. A stab incision was made in the entry points and the bone marked with a twist drill bilaterally. The incisions were completed with a 10 blade, sandie clips applied, and the periosteum reflected with a periosteal elevator. The eda holes were made with the 14mm harness installer drill over the markedbony entry points. The inner lip of the hole was removed with a 3 mm kerrison and hemostasis achieved with wax and bipolar cautery of the dura. The stimlocks were screwed on the burrholes and inserts tested. The nexframes were then screwed tightly around each burrhole and double tested by lifting the head off the headrest with the nexframe to ensure stability. The reference star was attached to the left nexframe and the stealth was registeredwith <0.4mm accuracy. We began with the left STN because the right foot symptoms were slightly worse preoperatively. I attached the guide piece to the nexframe and aligned the trajectory with the stealth plan. The target was 11 lateral, -3.0 AP, and -5.0 vertical. Distance to target was identified and Nexdrive adjusted accordingly. The A-E plane was aligned. The dura was opened with an 11 blade and dural edges cauterized.The Katiuska was opened with an 11 blade and cauterized. Between each step tisseal was placed in the burrhole to prevent CSF loss. The cannula and microelectrode were inserted at 15mm above target, [id number] and impedences confirmed <400kohms. I began advancing the microelectrode. The top of STN was observed at 6.8 mm above target; sensorimotor testing performed with no SM signal heard. I advanced the microelectrode 1mm at a time and retested for SM; Background noise decreased and we exited STN at about 0.8 mm above target. SNr was heard 1mm below target. The decision was made to perform test stim at 3.5mm above target. There was reductionin RUE tone and slightly improvement in bradykinesia up to 4 mAmp with no side effects. The decisionwas made to insert a Puralyticstronic 3389 macroelectrode with the distal 0 contact at 0.8mm above target. Impedences checked and within good range. Test stim was done with 90pw and 180hz rate with contact 0-and 3+. There were no side effects up to 4 and 5 V without any other side effects and no change in speech. Motor testing revealed mild improvement in left hand bradykinesia while stimulation was on. The stimlock was placed around the lead and CAROLYN system dissembled. We then aligned the trajectory for the preop right STN plan. The target was - 11.5 lateral, -3.0 AP, and -5.0 vertical. Distance to target was identified and Nexdrive adjusted accordingly. The A-E planewas aligned. The dura was opened with an 11 blade and dural edges cauterized. The Katiuska was opened with an 11 blade and cauterized. Between each step tisseal was placed in the burrhole to prevent CSF loss. The cannula and microelectrode were inserted at 15mm above target, advanced 1mm and impedences confirmed <600kohms. The top of STN was observed at 7.1mm above target; sensorimotor testing performed with no obvious driving heard. I advanced the microelectrode 1mm at a time with good STN recordingsheard all the way until 1.2mm above target, when background noise decreased and we exited STN. Subtle SNr was heard at -2mm below target. The decision was made to perform test stim at 3.5mm above target. There was reduction in LUE tone and only mild transient hand pareshtesias at 4mAmp. The decision was made to insert a Puralyticstronic 3389 macroelectrode with the distal 0 contact at 1mm above target. Impedences checked and within good range. Test stim was done with 90pw and 180hz rate with contact 0- and3+. There was only transient hand paresthesias at 5V and otherwise were no side effects and no change in speech. Motor testing revealed mild improvement in left hand bradykinesia. The stimlock was placed around the lead and CAROLYN system dissembled. I removed the nexframe towers and irrigated copiously with antibiotic solution. I placed the boot and cap with torque wrench on both leads, with a 2-0 silk stitch tied around the boot for the left lead, and tunneled both behind the right ear. I closed the incisions with 2-0 vicryls and anni. I infiltrated the fiducial sites with marcaine + epi and removed all 5 screws and stapled the stab incisions. Sterile dressings and bacitracin applied. Findings: excellent right and left STN spans with good macrostim results EBL (Estimated Blood Loss) (ml): 20 ml Specimens Removed: none sent Patient transferred out of operating room in stable condition. All surgical medications, procedures and x-rays performed in surgery-on the order of the operating physicians. Postop head CT showed excellent placement of the STN leads with respect to the merged preop MRI plan. Gonzalez Rowland MD documented in this encounter Plan of Treatment Not on filedocumented as of this encounter Procedures Procedure Name Priority Date/Time Associated Comments Diagnosis GLUCOSE BY METER Routine 09/10/2014 8:18 AM Resul ts for this CDT procedure are i n the results section. CT HEAD W/O CONTRAST Routine 09/09/2014 10:57 AM Results for this CDT procedure are i n the results section. INSERTION, ELECTRODE 09/09/2014 7:26 AM PARKINSONS DIS EASE LEADS, DEEP BRAIN CDT STIMULATOR, BILATERAL, USING OPTICAL TRACKING SYSTEM POTASSIUM STAT 09/09/2014 6:10 AM Results f or this CDT procedure are i n the results section. HEMOGLOBIN STAT 09/09/2014 6:10 AM Results f or this CDT procedure are i n the results section. documented in this encounter Results (ABNORMAL) Glucose by meter (09/10/2014 8:18 AM CDT) P athologist Signature Glucose 115 (H) 70 - 99 POINT OF CARE mg/dL TEST, GLUCOSE Specimen Anatomical Collection Method Collection Time Receive d Time (Source) Location / / Volume Laterality 09/10/2014 8:18 AM 5 8:20 CDT AM CDT Gonzalez Rowland MD [facility] POCT Performing Organization Address City/State/ZIP Code Phon e Number [facility] POINT OF CARE TEST, GLUCOSE POINT OF CARE TEST, GLUCOSE CT Head w/o Contrast (09/09/2014 10:57 AM CDT) Anatomical Region Laterality Modality Head, SUBRAD CT NEURO, SUBRAD CT NEURO, UMP CT NEURO Computed Tomography Specimen (Source) Anatomical Location Collection Method / Collectio n Time Received Time / Laterality Volume Impressions 09/09/2014 11:05 AM CDT IMPRESSION: Status post bilateral deep brain stimulator leads. LOGAN GUILLERMO MD Narrative 09/09/2014 11:[address] HEAD WITHOUT CONTRAST ??09/09/2014 10:57 AM HISTORY: Deep brain stimulator placement . COMPARISON: Preoperative CT yesterday. FINDINGS: Status post bilateral deep bra in stimulator leads in place. Bifrontal pneumocephalus noted. No hemor rhage. Procedure Note Logan Guillermo MD - 09/09/2014Forma tting of this note might be different from the original. CT HEAD WITHOUT CONTRAST 09/09/2014 10:57 AM HISTORY: Deep brain stimulator placement . COMPARISON: Preoperative CT yesterday. FINDINGS: Status post bilateral deep bra in stimulator leads in place. Bifrontal pneumocephalus noted. No hemor rhage. IMPRESSION IMPRESSION: Status post bilateral deep b rain stimulator leads. LOGAN GUILLERMO MD Arline Peñaloza BUSINESS ENTERPRISE OFFICER FIELD SUPPORT TECHNICIAN IMG CT ORDERABLES Hemoglobin (09/09/2014 6:10 AM CDT) athologist Signature Hemoglobin 14.8 13.3 - 17.7 [place] g/dL [facility] Specimen Anatomical Collection Method Collection Time Receive d Time (Source) Location / / Volume Laterality Blood specimen 09/09/2014 6:10 AM 015 6:13 (specimen) CDT AM CDT [facility] - BLOOD ORDERABLES Performing Organization Address City/State/ZIP Code Phon e Number [facility] [address] [place] [address] [place] [address] [place] [address] Potassium (09/09/2014 6:10 AM CDT) athologist Signature Potassium 3.4 3.4 - 5.3 [place] mmol/L [facility] Specimen Anatomical Collection Method Collection Time Receive d Time (Source) Location / / Volume Laterality Blood specimen 09/09/2014 6:10 AM 015 6:13 (specimen) CDT AM CDT [facility] - BLOOD ORDERABLES Performing Organization Address City/State/ZIP Code Phon e Number [facility] [address] [place] [address] [place] [address] [place] [address] documented in this encounter Visit Diagnoses Not on filedocumented in this encounter Administered Medications Inactive Administered Medications - up to 3 most recent administrations Medication Order MAR Action Action Date Dose Rate Site bacitracin ointment Given 09/09/2014 10:12 1 Tube Operative PRN, Starting on Tue AM CDT Site /Surgical Site 09/09/14 at 1012, Intra-procedure ceFAZolin 1000 mg + Given 09/09/2014 8:57 AM 1,000 mLs Operative gentamicin 120 mg + NaCl CDT Site/Surgical Site 0.9% 1000 mL Bottle PRN, Starting on Mon09/09/14 at 0857, Intra-procedure lidocaine 1%, EPINEPHrine Given 09/09/2014 10:11 AM 37 mLs Operative Site/Surgical 1:100,000 with bupivacaine CDT Site 0.5% mixed 1:1 60 mL + 10 mL 8.4% sodium bicarbonate PRN, Starting on Mon09/09/14 at 1011, Intra-procedure mineral oil OIL Given 09/09/2014 8:58 AM CDT 10 mLs Other (see comments) PRN, Starting on Mon09/09/14 at 0858, Intra-procedure sodium chloride 0.9% Given 09/09/2014 9:00 AM 1,000 mLs Operative (bottle) irrigation CDT Site/Surgical S ite PRN, Starting on Mon09/09/14 at 0900, Intra-procedure thrombin 5000 UNITS vial Given 09/09/2014 8:58 AM 5,000 Units Operative PRN, Starting on Mon CDT Site /Surgical Site 09/09/14 at 0858, Intra-procedure tkilohcb-qirlfkskgi-nazptsfop-calcium Given 09/09/2014 4 mLs Operative (TISSEEL) topical solution 9:43 AM CDT Site/Surgical PRN, Starting on Mon09/09/14 at 0859, Site Intra-procedure Given 09/09/2014 9:21 AM CDT 4 mLs Opera tive Site/Surgical Site Given 09/09/2014 9:01 AM CDT 4 mLs Opera tive Site/Surgical Site documented in this encounter Active and Recently Administered Medications Times are shown in CDT. Scheduled Medication Order 09/08/2014 09/09/2014 09/10/2014 amantadine (SYMMETREL) capsule 100 mg (CANCELED) 6175 (Given - Provider: Nasim Haddad RN)2006 (Given - Provider: Nomi Manuel RN - Comment: Pt states he has not taken his two doses today.) 8828 (Given - Provider: Nomi Manuel RN)0917 (Given - Provider: Ivelisse Mccormack RN) 100 mg, Oral, 2 TIMES DAILY, First dose on Mon09/09/14 at 1245, 0600 and 1000 carbidopa-levodopa (SINEMET CR) 50-200 MG per tablet 1 table t (CANCELED) 1228 (Given - Provider: Nasim Haddad, JAMAL) 1 tablet, Oral, 2 TIMES DAILY, First dose on Mon at 1215, DO NOT CRUSH. carbidopa-levodopa (SINEMET CR) 50-200 MG per tablet 1 table t (CANCELED) 1441 (Given - Provider: Nasim Haddad RN)1851 (Given - Provider: Chloé Davalos RN) 0528 (Given - Provider: Nomi Manuel RN)0918 (Given - Provider: Ivelisse Mccormack RN)1430 (Canceled Entry - Provider: Orders Generic Provider - Comment: Automatically canceled at discontinue of medication order) 1 tablet, Oral, 4 TIMES DAILY, First dos e on Mon09/09/14 at 1430, DO NOT CRUSH. GIve at 0600 1000 1430 and 1900 carbidopa-levodopa (SINEMET) 25-100 MG 1 tablet (CANCELED) 1143 (Given - Provider: Cami Alves RN) 1 tablet, Oral, 3 TIMES DAILY, First dose on Mon09/09/14 at 1400 , PACU ceFAZolin (ANCEF) intermittent infusion 2 g (pre-mix) (COMPL ETED) 0625 (Handoff - Provider: Lori Comer RN)0754 (Given - Provider: Millicent Enciso APRN BUSINESS CONTINUITY SPECIALIST)0954 (Given - Provider: Millicent Enciso APRN CRNA) 2 g, Intravenous, PRE-OP/PRE-PROCEDURE, Starting Mon09/09/14 at 0543, For 1 dose, Give first dose within 1 hour PRIOR to incision. If patient weight is greater than or equal to 120 kg change dose to 3 g ., Indications: Surgical Prophylaxis, Pre-procedure citalopram (celeXA) tablet 10 mg (CANCELED) 0919 (Given - Provider: Ivelisse Mccormack RN) 10 mg, Oral, DAILY, First dose on Mon09/10/14 at 0900 entacapone (COMTAN) tablet 200 mg (CANCELED) 1402 (Given - Provider: Nasim Haddad RN)1851 (Given - Provider: Chloé Davalos RN) 0528 (Given - Provider: Nomi Manuel, JAMAL)0920 (Given - Provider: Ivelisse Mccormack RN)1430 (Canceled Entry - Provider: Orders Generic Provider - Comment: Automatically canceled at discontinue of medication order) 200 mg, Oral, 4 TIMES DAILY, First dose on Mon09/09/14 at 1430, First dose in PACU once patient able to take PO. Give at 0600 1000 1430 1900 hydrochlorothiazide (HYDRODIURIL) tablet 25 mg (CANCELED) 0920 (Given - Provider: Ivelisse Mccormack RN) 25 mg, Oral, DAILY, First dose on Mon09/10/14 at 0900 omeprazole (priLOSEC) capsule 20 mg (CANCELED) 1237 (Not Given - Provider: Nasim Haddad RN - Reason: Patient/family refused - Comment: pt takes as needed)1440 (Given - Provider: Nasim Haddad RN) 0919 (Given - Provider: Ivelisse Mccormack RN) 20 mg, Oral, DAILY, First dose on Mon09/09/14 at 1215 pravastatin (PRAVACHOL) tablet 80 mg (CANCELED) 0917 (Given - Provider: Ivelisse Mccormack RN) 80 mg, Oral, DAILY, First dose on Mon09/10/14 at 0900 rotigotine (NEUPRO) 8 MG/24HR 1 patch (CANCELED) 1356 (Given - Provider: Nasim Haddad RN) 0811 (Given - Provider: Ivelisse leonardo RN)1000 (Canceled Entry - Provider: Ivelisse Mccormack RN) 1 patch, Transdermal, DAILY, First dose on Mon09/09/14 at 1000, Place patch in PACU once patient is awake and alert. rotigotine (NEUPRO) Patch in Place (CANCELED) 1215 (Not Given - Provider: Nasim Haddad RN - Reason: Other - Comment: patch not on)1443 (Patch in Place - Provider: Nasim Haddad RN)2255 (Given - Provider: Nomi Manuel RN) 0721 (Patch in Place - Provider: Nomi Manuel RN) Starting Mon09/09/14 at 0730, Chart ever y shift, confirming that patch is still in place on patient (no barode scan needed). See patch order for dose information. senna-docusate (SENOKOT-S;PERICOLACE) 8. 6-50 MG per tablet 1-2 tablet (CANCELED) 1238 (Not Given - Provider: Nasim Haddad RN - Reason: Patient/family refused)2006 (Given - Provider: Nomi Manuel RN) 0918 (Given - Provider: Ivelisse Mccormack, RN) 1-2 tablet, Oral, 2 TIMES DAILY, First d ose on Mon09/09/14 at 1215, Start with 1 tablet PO BID, If no bowel movement in 24 hours, increase to 2 tablets PO BID. Hold for loose stools. Preferred agent for constipation related to opioids., Post-procedure sodium chloride (PF) 0.9% PF flush 3 mL (CANCELED) 1239 (Not Given - Provider: Nasim Haddad RN - Reason: IV Infusing)2255 (Given - Provider: Nomi Manuel, JAMAL) 0526 (Given - Provider: Nomi Manuel , JAMAL)1215 (Canceled Entry - Provider: Orders Generic Provider - Comment: Automatically canceled at discontinue of medication order) 3 mL, Intravenous, EVERY 8 HOURS, First dose on Mon09/09/14 at 1215, to lock peripheral IV dormant line. Also Ordered Q1H PRN, Post-procedure Continuous Medication Order 09/08/2014 09/09/2014 09/10/2014 0.9% sodium chloride infusion (CANCELED) 1235 (New Bag - Provider: Nasim Haddad RN)1628 (Rate/Dose Verify - Provider: Chloé Davalos, JAMAL) 0751 (Rate/Dose Verify - Provider: Ivelisse Mccormack, JAMAL)1100 (Stopped - Provider: Ivelisse Mccormack, JAMAL) at 75 mL/hr, Intravenous, CONTINUOUS, Un til tolerating PO, Post-procedure, Starting Mon09/09/14 at 1215, Until Mon09/10/14 at 1701 lactated ringers infusion (CANCELED) 062 5 (New Bag - Provider: Lori Comer RN)0726 (Anesthesia Volume Adjustment - Provider: Millicent Enciso APRN BUSINESS CONTINUITY SPECIALIST)1020 (New Bag - Provider: Millicent Enciso APRN BUSINESS CONTINUITY SPECIALIST)1059 (Anesthesia Volume Adjustment - Provider: Millicent Enciso APRN BUSINESS CONTINUITY SPECIALIST) at 75-100 mL/hr, Intravenous, CONTINUOUS , UNLESS otherwise indicated., Pre- procedure, Starting 09/09/14 at 0545, Until 09/09/14 at 1053 niCARdipine 40 mg in 200 mL 0.9% NaCl (CARDENE) infusion (CA NCELED) 1215 (New Bag - Provider: Nasim Haddad, JAMAL)1638 (New Bag - Provider: Chloé Davalos, RN)1732 (Rate/Dose Change - Provider: Chloé Davalos RN)2253 (New Bag - Provider: Nomi Manuel, RN) 0330 (New Bag - Provider: Nomi Manuel, JAMAL)0700 (Rate/Dose Change - Provider: Nomi Manuel, JAMAL)0751 (Rate/Dose Verify - Provider: Ivelisse Mccormack, JAMAL)0910 (Stopped - Provider: Ivelisse Mccormack, JAMAL) 2.5-15 mg/hr (12.5-75 mL/hr), at 12.5-75 mL/hr, Intravenous, CONTINUOUS, Starting 09/09/14 at 1215, Titrate by 2.5 mg/hr q 15 minutes (max 15 mg/hr) to maintain SBP between 90 to 140 mmHg. Notify MD within 1 hour if BP parameters are not m et. Discontinue upon discharge from ICU. Central line preferred. To minimize risk of peripheral venous irritation, it is recommended that the site of infusion be changed every 12 hours., Post-procedure PRN Medication Order 09/08/2014 09/09/2014 09/10/2014 bacitracin ointment (CANCELED) 1012 (Given - Pro vider: Gonzalez Rowland) PRN, Starting 09/09/14 at 1012, Intra-procedure ceFAZolin 1000 mg + gentamicin 120 mg + NaCl 0.9% 1000 mL Nahid ttle (CANCELED) 0857 (Given - Provider: Gonzalez Rowland) PRN, Starting 09/09/14 at 0857, Intra-procedure HYDROmorphone (PF) (DILAUDID) injection 0.3-0.5 mg (CANCELED ) 1129 (Given - Provider: Cami Alves, JAMAL) 0.3-0.5 mg, Intravenous, EVERY 5 MIN PRN , Starting 09/09/14 at 1030, Until 09/09/14 at 1202, moderate to severe pain, acute pain. May administer if RR is > 10 , PACU, If fentanyl is also ordere d, use HYDROmorphone if pain control ins ufficient with fentanyl or a longer acting agent is needed. Max cumulative dose = 2 mg HYDROmorphone (PF) (DILAUDID) injection 0.3-0.5 mg (CANCELED ) 1301 (Given - Provider: Nasim Haddad, RN)1600 (Given - Provider: Georges Hedrick, JAMAL)1851 (Given - Provider: Chloé Davalos RN) 0.3-0.5 mg, Intravenous, EVERY 30 MIN MI N, Starting 09/09/14 at 1209, Until 09/10/14 at 1701, severe pain, Post-procedure lidocaine 1%, EPINEPHrine 1:100,000 with bupivacaine 0.5% mixed 1:1 60 mL + 10 mL 8.4% sodium bicarbonate (CANCELED) 1011 (Given - Pr ovider: Gonzalez Rowland - Comment: 12 ml.of the sodium bicarb used) PRN, Starting e 09/09/14 at 1011, Intra-procedure lidocaine BUFFERED 1 % solution 0.1-1 mL (COMPLETED) 0626 (Given - Provider: Lori Comer, JAMAL) 0.1-1 mL, Intradermal, ONCE PRN, mild pa in with VAD insertion or accessing implanted port., Starting e 09/09/14 at 0543, For 1 dose, Do NOT give if patient has a history of allergy to any local anesthetic or any abdi product., Pre-procedure mineral oil OIL (CANCELED) 0858 (Given - Provider: Gonzalez Rowland - Comment: used for intruments) PRN, Starting 09/09/14 at 0858, Intra-procedure sodium chloride 0.9% (bottle) irrigation (CANCELED) 0900 (Given - Provider: Gonzalez Rowland) PRN, Starting 09/09/14 at 0900, Intra-procedure thrombin 5000 UNITS vial (CANCELED) 0858 (Given - Provider: Gonzalez Rowland) PRN, Starting 09/09/14 at 0858, Intra-procedure gfvnbmqs-ozxtlhoipb-zzdapvgnr-calcium (TISSEEL) topical solu tion (CANCELED) 0859 (Given - Provider: Gonzalez Rowland)0900 (Given - Provider: Gonzalez Rowland)0901 (Given - Provider: Gonzalez Rowland)0921 (Given - Provider: Gonzalez Rowland)0943 (Given - Provider: Gonzalez Rowland) PRN, Starting Tu09/09/14 at 0859, Intra-procedure documented in this encounter Care Teams Energy Analyst Relationship Specialty Start Date End Date Lurdes Thomas MD PCP - General Internal Medicine 06/11/14 12/16/20 documented as of this encounter
--- OUTSIDE RECORDS SUMMARY | 2021-12-28 12:16 | XMS_ITS | Encounter Summary ---
:1955 Author Organization [facility] Address [address] [place] [address]. [place] [address] Care Team Providers Name Role Phone Lurdes Thomas MD Primary Care Provider [phone] Reason for Visit (Routine) - Closed Specialty Diagnoses / Procedures Referred By Contact Refer red To Contact Cardiology Diagnoses 06/16-reminder ltr sent Rh Echo cc Procedures [facility] [id number] [facility] [address] [place], [place] [address] Phone: Fax: Referral ID Status Reason Start Date Expiration Date Visits Requ ested Visits Authorized [id number] Closed 06/17/2014 06/17/2015 1 1 Encounter Details Date Type Department Care Team Description [facility]2014 [facility] [place] breath) Heart Care [facility] [address] [facility] [address] [place], [place] [address] [place], [place] [phone] [id number] Social History Tobacco Use Types Packs/Day Years [...] MG capsule mouth 2 times daily carbidopa-levodopa Take 1 tablet by 0 04/12/2010 (SINEMET CR) 50-200 MG per mouth 4 times daily tabletIndications: Takes at 0600 1000 Parkinson disease (H) 1430 1900 carbidopa-levodopa Take 1 tablet by 0 (SINEMET) 25-100 MG per mouth 3 times daily tabletIndications: as needed Parkinson disease (H) citalopram (CELEXA) 10 MG Take 10 mg by mouth 0 tabletIndications: daily. Parkinson disease (H) omeprazole 20 MG tablet Take 20 mg by mouth 30 tablet 1 daily as needed Take 30-60 minutes before a meal. vitamin D (ERGOCALCIFEROL) Take 1 capsule 8 capsule 0 06/1208/01/2014 31406 UNIT (50,000 Units) by capsuleIndications: mouth every 7 days Vitamin D deficiency for 8 doses disease entacapone (COMTAN) 200 MG Take 200 mg by 0 02/12/2015 tabletIndications: mouth 4 times daily Parkinson disease (H) Takes at sames at Sinemet CR 0600 1000 1430 1900 pravastatin (PRAVACHOL) 80 Take 1 tablet by 90 tablet 3 06/201208/20/2014 MG tabletIndications: mouth daily. Hyperlipidemia LDL goal < 130 rotigotine (NEUPRO) 8 Place 1 patch onto 0 02/12/2015 MG/24HR the skin daily sildenafil (VIAGRA) 50 MG Take 1 tablet by 10 tablet 12 09/2002/12/2015 tabletIndications: mouth daily as Erectile dysfunction needed for erectile dysfunction. documented as of this encounter Plan of Treatment Not on filedocumented as of this encounter Procedures Procedure Name Priority Date/Time Associated Diagnosis Comme nts ECHO COMPLETE WITH Routine 06/25/2014 2:19 PM SOB (shortness o f Results for this OPTISON SOLAR FIELD SERVICE TECHNICIAN breath) procedure are i n the results section. documented in this encounter Results ECHO COMPLETE WITH OPTISON (06/25/2014 2:19 PM SOLAR FIELD SERVICE TECHNICIAN) Anatomical Region Laterality Modality Echocardiography Specimen (Source) Anatomical Collection Method Collection Time Re ceived Time Location / / Volume Laterality 06/25/2014 1:34 PM SOLAR FIELD SERVICE TECHNICIAN Narrative 06/25/2014 4:24 PM SOLAR FIELD SERVICE TECHNICIAN Interpretation Summary Left ventricular systolic function is no rmal. Normal left ventricular diastolic function PatientHeight: 73 in PatientWeight: 205 lbs SystolicPressure: 140 mmHg DiastolicPressure: 80 mmHg HeartRate: 73 bpm BSA 2.2 m^2 Left Ventricle The left ventricle is normal in size. There is normal left ventricular wall th ickness. Left ventricular systolic function is no rmal. The visual ejection fraction is estimate d at 55-60%. E by E prime ratio is less than 8, that likely suggests normal left ventricular filling pressures. Normal left ventricular diastolic functi on. Normal left ventricular wall motion. There is no thrombus seen in the left ve ntricle. Right Ventricle The right ventricle is normal in structu re, function and size. Atria Normal left atrial size. Right atrial size is normal. There is no color Doppler evidence of an atrial shunt. Mitral Valve The mitral valve leaflets appear normal. There is no evidence of stenosis, fluttering, or prolapse. There is trace mitral regurgitation. Tricuspid Valve Normal tricuspid valve. Right ventricular systolic pressure coul d not be approximated due to inadequate tricuspid regurgitation. Aortic Valve The aortic valve is trileaflet. There is trace to mild aortic regurgitat ion. No hemodynamically significant valvular aortic stenosis. Pulmonic Valve The pulmonic valve is not well seen, but is grossly normal. Vessels Normal size aorta. The inferior vena cava is not dilated. Pericardium The pericardium appears normal. Rhythm The rhythm was normal sinus. Procedure Complete Echo Adult. Contrast Optison. MMode 2D Measurements & Calculations IVSd: 0.98 cm LVIDd: 4.9 cm LVIDs: 3.1 cm LVPWd: 0.94 cm FS: 37 % LV mass(C)d: 168 grams Ao root diam: 2.7 cm LA dimension: 4.0 cm asc Aorta: 3.1 cm LA/Ao: 1.5 Doppler Measurements & Calculations MV E point: 48 cm/sec MV A point: 37 cm/sec MV E/A: 1.3 MV dec time: 0.28 sec Interpreting Physician: ??Nomi Aguero MD electronically signed on 06-25-2014 16:24:33 Procedure Note Nomi Aguero MD - 06/25/2014Format ting of this note might be different from the original. Interpretation Summary Left ventricular systolic function is no rmal. Normal left ventricular diastolic function PatientHeight: 73 in PatientWeight: 205 lbs SystolicPressure: 140 mmHg DiastolicPressure: 80 mmHg HeartRate: 73 bpm BSA 2.2 m^2 Left Ventricle The left ventricle is normal in size. There is normal left ventricular wall th ickness. Left ventricular systolic function is no rmal. The visual ejection fraction is estimate d at 55-60%. E by E prime ratio is less than 8, that likely suggests normal left ventricular filling pressures. Normal left ventricular diastolic functi on. Normal left ventricular wall motion. There is no thrombus seen in the left ve ntricle. Right Ventricle The right ventricle is normal in structu re, function and size. Atria Normal left atrial size. Right atrial size is normal. There is no color Doppler evidence of an atrial shunt. Mitral Valve The mitral valve leaflets appear normal. There is no evidence of stenosis, fluttering, or prolapse. There is trace mitral regurgitation. Tricuspid Valve Normal tricuspid valve. Right ventricular systolic pressure coul d not be approximated due to inadequate tricuspid regurgitation. Aortic Valve The aortic valve is trileaflet. There is trace to mild aortic regurgitat ion. No hemodynamically significant valvular aortic stenosis. Pulmonic Valve The pulmonic valve is not well seen, but is grossly normal. Vessels Normal size aorta. The inferior vena cava is not dilated. Pericardium The pericardium appears normal. Rhythm The rhythm was normal sinus. Procedure Complete Echo Adult. Contrast Optison. MMode 2D Measurements & Calculations IVSd: 0.98 cm LVIDd: 4.9 cm LVIDs: 3.1 cm LVPWd: 0.94 cm FS: 37 % LV mass(C)d: 168 grams Ao root diam: 2.7 cm LA dimension: 4.0 cm asc Aorta: 3.1 cm LA/Ao: 1.5 Doppler Measurements & Calculations MV E point: 48 cm/sec MV A point: 37 cm/sec MV E/A: 1.3 MV dec time: 0.28 sec Interpreting Physician: Nomi Aguero MD electronically signed on 06-25-2014 16:24:33 Lurdes Thomas MD CV ECHO ORDERABLES documented in this encounter Visit Diagnoses Diagnosis SOB (shortness of breath) Shortness of breath documented in this encounter Administered Medications Inactive Administered Medications - up to 3 most recent administrations Medication Order MAR Action Action Date Dose Rate Site perflutren diluted 1mL to 2mL with Given 06/25/2014 2:12 PM SOLAR FIELD SERVICE TECHNICIAN 2 mLs saline (OPTISON) diluted injection 2 mL 2 mL, Intravenous, ONCE, On Mon06/25/14 at 1415, For 1 dose, 3mL Optison / 6mL Saline solution documented in this encounter Care Teams Film Technician Relationship Specialty Start Date End Date Lurdes Thomas MD PCP - General Internal Medicine 06/11/14 12/16/20 documented as of this encounter
--- OUTSIDE RECORDS SUMMARY | 2021-12-28 12:16 | XMS_ITS | Encounter Summary ---
:1955 Author Organization [facility] Address [address] [place] [address]. [place] [address] Care Team Providers Name Role Phone Lurdes Thomas MD Primary Care Provider [phone] Reason for Visit (Routine) - Closed Specialty Diagnoses / Procedures Referred By Contact Refer red To Contact Cardiology Procedures [facility] Electrocardiology EKG STRESS NM LEXISCAN [address] [place], [place] [address] Phone: Referral ID Status Reason Start Date Expiration Date Visits Requ ested Visits Authorized [id number] Closed 06/19/2014 06/19/2015 1 1 Encounter Details Date Type Department Care Team Description 06/25/2014 Hospital Encounter [facility] Lurdes Thomas SOB (shortness of Electrocardiolgy MD [place] breath) [address] [facility] [place] [address] [place] [place] [address] [place] [address] Social History Tobacco Use Types Packs/Day Years [...] Take 1 capsule 8 capsule 0 06/1208/01/2014 32683 UNIT (50,000 Units) by capsuleIndications: mouth every [...] erectile dysfunction. documented as of this encounter Progress Notes Rachel Segura RN - 06/25/2014 11:30 AM CST Patient's lung sounds are clear. No adverse reactions to catarino injection. Rachel Segura RAFT PILOT documented in this encounter Plan of Treatment Not on filedocumented as of this encounter Procedures Procedure Name Priority Date/Time Associated Diagnosis Comme nts NM MPI WITH Routine 06/25/2014 1:06 PM SOB (shortness of Resu lts for this LEXISCAN AIRCRAFT PILOT breath) procedure are i n the results section. documented in this encounter Results NM Lexiscan stress test (06/25/2014 1:06 PM AIRCRAFT PILOT) Anatomical Region Laterality Modality Chest Nuclear Medicine Specimen (Source) Anatomical Location Collection Method / Collectio n Time Received Time / Laterality Volume Narrative 06/26/2014 10:06 AM AIRCRAFT PILOT GATED MYOCARDIAL PERFUSION SCINTIGRAPHY WITH INTRAVENOUS PHARMACOLOGIC VASODILATATION LEXISCAN -ONE DAY STUDY 06/25/2014 1:06 PM ??DEIDRE PANG ??59 y ears ??Male ??1955. Indication/Clinical History: Shortness o f breath Impression 1. ??Myocardial perfusion imaging using single isotope technique demonstrated no evidence of ischemia or infarction. 2. Gated images demonstrated normal-size d left ventricle with normal wall motion. ??The left ventricular syst olic function is normal with ejection fraction 62 per. 3. Compared to the prior study from . Procedure Pharmacologic stress testing was perform ed with Lexiscan at a rate of 0.08 mg/ml rapid bolus injection, for 15 seconds, 0.4 mg/5ml intravenously. Low-level exercise was no t performed along with the vasodilator infusion. ??The heart rate w as 77 at baseline and arabella to 96 beats per minute during the Lexiscan infusion. The rest blood pressure was 125/77 mmHg and was 122/73 mm Hg during Lexiscan infusion. The patient experienced chest tightness ??during the test. Myocardial perfusion imaging was perform ed at rest, approximately 45 minutes after the injection intravenousl y of 10.4 mCi of Tc-99m Myoview. At peak pharmacologic effect, 1 0-20 seconds after Lexiscan, the patient was injected intravenously w ith 30 mCi of ??Tc-99m Myoview. The post-stress tomographic imaging was performed approximately 60 minutes after stress. EKG Findings The resting EKG demonstrated sinus rhyth m with no ischemic changes. The stress EKG demonstrated no EKG turner es suggestive of ischemia. Tomographic Findings Overall, the study quality is good . On the stress images, basal inferior mild, reduction is seen. On the rest images,basal inferior count reduction is again noted and likel y due to diaphragmatic attenuation . Gated images demonstrated normal-sized left ventricle with normal wall motion. The left ventri cular ejection fraction was calculated to be 62%. TID was absent. ALAN BUNN MD Procedure Note Alan Bunn MD - 06/26/2014For matting of this note might be different from the original. GATED MYOCARDIAL PERFUSION SCINTIGRAPHY WITH INTRAVENOUS PHARMACOLOGIC VASODILATATION LEXISCAN -ONE DAY STUDY 06/25/2014 1:06 PM DEIDRE PANG 59 years Male 1955. Indication/Clinical History: Shortness o f breath Impression 1. Myocardial perfusion imaging using si ngle isotope technique demonstrated no evidence of ischemia or infarction. 2. Gated images demonstrated normal-size d left ventricle with normal wall motion. The left ventricular systol ic function is normal with ejection fraction 62 per. 3. Compared to the prior study from . Procedure Pharmacologic stress testing was perform ed with Lexiscan at a rate of 0.08 mg/ml rapid bolus injection, for 15 seconds, 0.4 mg/5ml intravenously. Low-level exercise was no t performed along with the vasodilator infusion. The heart rate was 77 at baseline and arabella to 96 beats per minute during the Lexiscan infusion. The rest blood pressure was 125/77 mmHg and was 122/73 mm Hg during Lexiscan infusion. The patient experienced chest tightness during the test. Myocardial perfusion imaging was perform ed at rest, approximately 45 minutes after the injection intravenousl y of 10.4 mCi of Tc-99m Myoview. At peak pharmacologic effect, 1 0-20 seconds after Lexiscan, the patient was injected intravenously w ith 30 mCi of Tc-99m Myoview. The post-stress tomographic imaging was performed approximately 60 minutes after stress. EKG Findings The resting EKG demonstrated sinus rhyth m with no ischemic changes. The stress EKG demonstrated no EKG turner es suggestive of ischemia. Tomographic Findings Overall, the study quality is good . On the stress images, basal inferior mild, reduction is seen. On the rest images,basal inferior count reduction is again noted and likel y due to diaphragmatic attenuation . Gated images demonstrated normal-sized left ventricle with normal wall motion. The left ventri cular ejection fraction was calculated to be 62%. TID was absent. ALAN BUNN MD Lurdes Thomas MD IMG NM ORDERABLES documented in this encounter Visit Diagnoses Diagnosis SOB (shortness of breath) Shortness of breath documented in this encounter Administered Medications Inactive Administered Medications - up to 3 most recent administrations Medication Order MAR Action Action Date Dose Rate Site regadenoson (LEXISCAN) 0.4 MG/5ML Given 06/25/2014 11:30 AM AIRCRAFT PILOT injection Starting on Mon06/25/14 at 1148, For 1 dose, RACHEL SEGURA: cabinet override documented in this encounter Care Teams Centrifugal Supervisor Relationship Specialty Start Date End Date Lurdes Thomas MD PCP - General Internal Medicine 06/11/14 12/16/20 documented as of this encounter
--- OUTSIDE RECORDS SUMMARY | 2021-12-28 12:16 | XMS_ITS | Encounter Summary ---
:1955 Author Organization [facility] Address [address] [place] [address]. [place] [address] Care Team Providers Name Role Phone Lurdes Thomas MD Primary Care Provider [phone] Reason for Visit Reason Comments Neurologic Problem DBS Consult Encounter Details Date Type Department Care Team Description 07/17/2014 [facility] [address] [facility] [address] [place], [place] [address] Parkinson's disease Neurosurgery [facility] Rachel Cuadra APRN MOTOR VEHICLE DISPATCHER [facility] [address] [email or web address] [address] [place], [place] [address] (H) (Primary Dx) [address] [address] Social History Tobacco Use Types [...] Sign Reading Time Taken Comments Blood Pressure 124/81 07/17/2014 9:[address] Pulse 94 07/17/2014 9:[address] Temperature 36.6 ??C (97.8 ??F) 07/17/2014 9:[address] Respiratory Rate - - Oxygen Saturation 94% 07/17/2014 9:[address] Inhaled Oxygen Concentration - - Weight 99.1 kg (218 lb 6.4 oz) 07/17/2014 9:[address] Height 185.4 cm (6' 1) 07/17/2014 9:[address] Body Mass Index 28.81 07/17/2014 9:[address] documented in this encounter Patient Instructions Patient InstructionsSchRachel lundberg CNP - 07/17/2014 10:00 AM CST - Schedule surgery today: Bilateral DBS -Schedule MRI -Schedule in office screw placement with CT after - Pre-operative physical with primary care physician within 30 days of surgical date. - Discontinue Aspirin, NSAIDs, Diclofenac x 7 days prior to surgical date. - May try Tylenol for pain 1000mg Three times/day for pain. -Stereotactic MRI prior to surgery -Shave head prior to surgery if you would like -Stop all parkinson medications at 6pm the night before, no sleep medications the night before surgery RVISOR OF WAY documented in this encounter Progress Notes Rachel Cuadra APRN CNP - 07/17/2014 9:22 AM CST [facility] Neurosurgery Consult Note CC: Tremors and legs are lockingup Primary care Provider: Lurdes Thomas Referring provider: Dr. Maria Esther Phan HPI: Andrew Pang is a 59 year old male with a history of Parkinsons disease. He was diagnosed in August of 2007. He has been treating at the [facility] as well as Dr. Phan. Despite changes in medication therapy his symptoms continue to decline. He states that he is right handed and that he has a tremor but the worse symptom is his gait disturbance. He feels that his right leg islocking up. It is more notable with fatigue or when he does not have his medications. He also has noted that his speech is fatster and slurred. He also does have some left sided symptoms. He deniesany depression but sleep has become more difficult and he notes waking up at night. 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 He was referred here for consideration for DBS treatment. Pain right now: 0 Past Medical History Diagnosis Date ??? Parkinson disease ? ? Hyperlipidemia LDL goal < 130 ??? Angina at rest Past Surgical History Procedure Laterality Date ??? Hernia repair age 11 ??? Discectomy cervical minimally invasive one level 2000 Current Outpatient Prescriptions Medication ??? vitamin D (ERGOCALCIFEROL) 08275 UNIT capsule ??? rotigotine (NEUPRO) 8 MG/24HR ??? amantadine (SYMMETREL) 100 MG capsule ??? omeprazole 20 MG tablet ??? citalopram (CELEXA) 10 MG tablet ??? entacapone (COMTAN) 200 MG tablet ??? carbidopa-levodopa (SINEMET) 25-100 MG per tablet ??? pravastatin (PRAVACHOL) 80 MG tablet ??? sildenafil (VIAGRA) 50 MG tablet ??? carbidopa-levodopa (SINEMET CR) 50-200 MG per tablet No current facility-administered medications for this visit. No Known Allergies History Social History ??? Marital Status: Spouse Name: N/A Number of Children: N/A ??? Years of Education: N/A Social History Main Topics ??? Smoking status: Never Smoker ??? Smokeless tobacco: Never Used ??? Alcohol Use: Yes Comment: not often ??? Drug Use: No ??? Sexual Activity: Yes Other Topics Concern ??? None Social History Narrative Family History Problem Relation Age of Onset ??? Cardiovascular Mother CVA x4 and ME, s/p CABG in mid-late 60's ??? Cardiovascular Father ME, s/p CABG in mid-late 60's ??? Diabetes Father ??? Neurological Father Parkinson's ??? Lipids Father Review Of Systems Skin: negative Eyes: negative Ears/Nose/Throat: negative Respiratory: Shortness of breath, dyspnea on exertion, cough, or hemoptysis Cardiovascular: negative Gastrointestinal: negative Genitourinary: negative Musculoskeletal: Gait disturbance and tremor Neurologic: tremor and Parkinson's Disease Psychiatric: negative Hematologic/Lymphatic/Immunologic: negative Endocrine: negative ROS: 10 point ROS neg other than the symptoms noted above in the HPI. Vital Signs: BP 124/81 Pulse 94 Temp(Src) 97.8 ??F (36.6 ??C) (Oral) Ht 6' 1 (1.854 m) Wt 218 lb 6.4 oz (99.066 kg) BMI 28.82 kg/m2 SpO2 94% Examination: Constitutional: Alert, well nourished, NAD. HEENT: Normocephalic, atraumatic. Pulm: Without shortness of breath or audible adventitious respiratory sounds. CV: No pitting edema of BLE. Brisk capillary refill, CMS intact. Neurological: Awake Alert Oriented x 3 Speech clear Cranial nerves II - XII intact PERRL EOMI Face symmetric Tongue midline Motor exam 5/5 strength in all four extremities. Sensation normal Gait: Able to stand from a seated position. Normal non-antalgic, non-myelopathic gait. Unified Parkinson's Disease score: 5 today. Assessment/Plan: Andrew Pang is a 59 year old male with a diagnosis of Parkinson's disease. [facility] The pt was educated regarding DBS therapy for his symptoms. He has undergone neuro psych testing as well. He states that he has been educated on unilateral vs. Bilateral DBS. The difference between this was dicussed in detail. The risks regarding surgery were discussed in detail. It was explained that the surgery can make cognition worse and will not help with his speech. The DBS would be helpful for dyskinesia and may help decrease his need for oral medications. Surgery is indicated at this time. The pre-procedure information was given to the pt which would include, pre-op physical, stereotactic MRI as well as in office screw placement with CT after. The surgery itself as well as incision placement were discussed in detail. The risks and benefits were also discussed in detail. It was agreed that we would proceed with bilateral DBS placement at the [facility]. -33% at wearing off of medications -Neuropsych testing revealed no cognitive dysfunction -Unified Parkinson's Disease Rating scale is 6 on medications and 28 off -Dyskinesia is absent with the use of medications -MOCA score is 29/30 Plan: - Schedule surgery today: Bilateral DBS -Schedule MRI -Schedule in office screw placement with CT after - Pre-operative physical with primary care physician within 30 days of surgical date. - Discontinue Aspirin, NSAIDs, Diclofenac x 7 days prior to surgical date. - May try Tylenol for pain 1000mg Three times/day for pain. -Stereotactic MRI prior to surgery -Shave head prior to surgery if you would like -Stop all parkinson medications at 6pm the night before, no sleep medications the night before surgery The above assessment and plan was reviewed with the patient, his spouse and Dr. Rowland, who are in agreement with recommendations and plan. Rachel Cuadra MOTOR VEHICLE DISPATCHER [facility] [address] [place] [address] Pager [phone] Jordana Kline - 07/17/2014 9:18 AM CST Andrew Pang is a 59 year old male who presents for: Chief Complaint Patient presents with ??? Neurologic Problem DBS Consult Initial Vitals: BP 124/81 Pulse 94 Temp(Src) 97.8 ??F (36.6 ??C) (Oral) Ht 6' 1 (1.854 m) Wt 218 lb 6.4 oz (99.066 kg) BMI 28.82 kg/m2 SpO2 94% Estimated body mass index is 28.82 kg/(m^2) as calculated from the following: Height as of this encounter: 6' 1 (1.854 m). Weight as of this encounter: 218 lb 6.4 oz (99.066 kg).. Body surface area is 2.26 meters squared. BP completed using cuff size: regular Data Unavailable Do you feel safe in your environment? Yes Do you need any refills today? No Nursing Comments: Patient is here today for a DBS consult(Parkinsons) - referred by Dr. Phan([facility]) 5 nursing intake time Jordana Kline CMA Discharge plan: Patient given After Visit Summary. He will be scheduled for Bilateral DBS 2 nursing discharge time Jordana Kline CMA signature RVISOR OF WAY documented in this encounter Plan of Treatment Not on filedocumented as of this encounter Results CT Head w/o Contrast (09/08/2014 12:20 PM CDT) Anatomical Region Laterality Modality Head, SUBRAD CT NEURO, SUBRAD CT NEURO, UMP CT NEURO Computed Tomography Specimen (Source) Anatomical Location Collection Method / Collectio n Time Received Time / Laterality Volume Impressions 09/08/2014 1:18 PM CDT IMPRESSION: Scan done for pre-surgical localization. No obvious abnormality. FAMILIA GUILLERMO MD Narrative 09/08/2014 1:[address] HEAD WITHOUT CONTRAST September 08, 2014 12:20 PM HISTORY: Paralysis agitans. COMPARISON: Treatment planning MR 08/27/19 15. FINDINGS: CT scan done for surgical loca lization purposes. No intracranial hemorrhage, mass, or recent infarct without the benefit contrast material. Procedure Note Familia Guillermo MD - 09/08/2014Forma tting of this note might be different from the original. CT HEAD WITHOUT CONTRAST September 08, 2014 12:20 PM HISTORY: Paralysis agitans. COMPARISON: Treatment planning MR 08/27/19 15. FINDINGS: CT scan done for surgical loca lization purposes. No intracranial hemorrhage, mass, or recent infarct without the benefit contrast material. IMPRESSION IMPRESSION: Scan done for pre-surgical l ocalization. No obvious abnormality. FAMILIA GUILLERMO MD Rachel Cuadra APRN [facility] CT ORDERABLES MR Brain w/o & w Contrast (08/26/2014 2:30 PM CDT) Anatomical Region Laterality Modality Head, SUBRAD MR NEURO, P MR NEURO Magn etic Resonance Specimen (Source) Anatomical Location Collection Method / Collectio n Time Received Time / Laterality Volume Impressions 08/26/2014 2:44 PM CDT IMPRESSION: Treatment planning brain MRI images with no evidence for acute intracranial pathology. BETTY CLOUD MD Narrative 08/26/2014 2:44 PM CDT MR BRAIN WITH AND WITHOUT CONTRAST August 26, 2014 2:30 PM HISTORY: Paralysis agitans. TECHNIQUE: Thin section axial pre-and po stcontrast (20 mL Gadavist) MRI images of the brain were acquired fo r treatment planning purposes. COMPARISON: Diagnostic brain MRI from [facility] 05/26/2014. FINDINGS: The ventricles are normal in s ize. There is no midline shift. There are no extra-axial fluid co llections. There is no evidence for intracranial hemorrhage. Procedure Note Betty Cloud MD - 08/26/2014Forma tting of this note might be different from the original. MR BRAIN WITH AND WITHOUT CONTRAST August 26, 2014 2:30 PM HISTORY: Paralysis agitans. TECHNIQUE: Thin section axial pre-and po stcontrast (20 mL Gadavist) MRI images of the brain were acquired fo r treatment planning purposes. COMPARISON: Diagnostic brain MRI from [facility] 05/26/2014. FINDINGS: The ventricles are normal in s ize. There is no midline shift. There are no extra-axial fluid co llections. There is no evidence for intracranial hemorrhage. IMPRESSION IMPRESSION: Treatment planning brain MRI images with no evidence for acute intracranial pathology. BETTY CLOUD MD Rachel Cuadra APRN MOTOR VEHICLE DISPATCHER IMG MRI ORDERABLES documented in this encounter Visit Diagnoses Diagnosis Parkinson's disease (H) - Primary Paralysis agitans Parkinson's disease (H) Paralysis agitans Parkinson's disease (H) Paralysis agitans documented in this encounter Care Teams Emergency Room Registered Nurse Relationship Specialty Start Date End Date Lurdes Thomas MD PCP - General Internal Medicine 06/11/14 12/16/20 documented as of this encounter
--- OUTSIDE RECORDS SUMMARY | 2021-12-28 12:16 | XMS_ITS | Encounter Summary ---
:1955 Author Organization [facility] Address [address] [facility] [place] [address] Care Team Providers Name Role Phone Lurdes Thomas MD Primary Care Provider [phone] Reason for Visit (Routine) - Closed Specialty Diagnoses / Procedures Referred By Contact Refer red To Contact Radiology / Radiology. Procedures Nuclear Medicine NM MPI WITH LEXISCAN [address] [place] [address] Phone: Fax: Referral ID Status Reason Start Date Expiration Date Visits Requ ested Visits Authorized [id number] Closed 06/20/2014 12/17/2014 1 1 Encounter Details Date Type Department Care Team Description 06/25/2014 Hospital Encounter [facility] Lurdes Thomas MD [address] [facility] [address] [address] [facility] [phone] [place], [place] [address] (Wo rk) Social History Tobacco [...] Take 1 capsule 8 capsule 0 06/1208/01/2014 72860 UNIT (50,000 Units) by capsuleIndications: mouth every [...] (shortness of Resu lts for this LEXISCAN BOX TOE FLANGER STITCHDOWNS breath) procedure are i n the results section. documented in this encounter Visit Diagnoses Not on filedocumented in this encounter Administered Medications Inactive Administered Medications - up to 3 most recent administrations Medication Order MAR Action Action Date Dose Rate Site technetium Tc 99m tetrofosmin 2UD Given 06/25/2014 1:04 PM BOX TOE FLANGER STITCHDOWNS 3 0 mCi study (MYOVIEW) radioisotope injection 3-42 mCi 3-42 mCi, Intravenous, EVERY 2 HOURS, First dose on Mon06/25/14 at 1015, For 2 doses, Radioisotope, supplied by and administered by Nuclear Medicine. *HW* Given 06/25/2014 10:09 AM BOX TOE FLANGER STITCHDOWNS 10.4 mCi documented in this encounter Care Teams Associate Programmer Relationship Specialty Start Date End Date Lurdes Thomas MD PCP - General Internal Medicine 06/11/14 12/16/20 documented as of this encounter
--- OUTSIDE RECORDS SUMMARY | 2021-12-28 12:16 | XMS_ITS | Encounter Summary ---
:1955 Author Organization [facility] Address [address] [facility] [place] [address] Care Team Providers Name Role Phone Lurdes Thomas MD Primary Care Provider [phone] Reason for Visit (Routine) - Closed Specialty Diagnoses / Procedures Referred By Contact Refer red To Contact Radiology / Radiology. Diagnoses R#NA, BC, Epic Order Sh Mri Procedures MR BRAIN WWO [address] [place] [address] Phone: Referral ID Status Reason Start Date Expiration Date Visits Requ ested Visits Authorized [id number] Closed 07/28/2014 07/28/2015 1 1 Encounter Details Date Type Department Care Team Description 08/26/[address] [facility] Rachel Cuadra rkinson's disease [facility] Imaging Lm, GRATING MACHINE OPERATOR MUSKRAT TRAPPER (H) [address] [place] [address] ORTHOPEDICS [phone] [place] [address] [place], [place] [address] Social History Tobacco Use Types Packs/Day Years [...] 1900 pravastatin (PRAVACHOL) 80 Take 1 tablet (80 [...] Take 1 capsule 4 capsule 2 08/2602/12/2015 68167 UNIT (50,000 Units) by capsuleIndications: Vitamin mouth every 7 D deficiency disease days documented as of this encounter Plan of Treatment Not on filedocumented as of this encounter Procedures Procedure Name Priority Date/Time Associated Diagnosis Comme nts MR BRAIN W/O & W Routine 08/26/2014 2:30 PM Parkinson's diseas e Results for this CONTRAST CDT (H) procedure are i n the results section. documented in this encounter Results MR Brain w/o & w Contrast (08/26/2014 2:30 PM CDT) Anatomical Region Laterality Modality Head, SUBRAD MR NEURO, UMP MR NEURO Magn etic Resonance Specimen (Source) [...] planning purposes. COMPARISON: Diagnostic brain MRI from [facility] 05/26/2014. FINDINGS: The ventricles are normal in [...] planning purposes. COMPARISON: Diagnostic brain MRI from [facility] 05/26/2014. FINDINGS: The ventricles are normal in s ize. There is no midline shift. There are no extra-axial fluid co llections. There is no evidence for intracranial hemorrhage. IMPRESSION IMPRESSION: Treatment planning brain MRI images with no evidence for acute intracranial pathology. BETTY CLOUD MD Rachel Cuadra GRATING MACHINE OPERATOR MUSKRAT TRAPPER IMG MRI ORDERABLES documented in this encounter Visit Diagnoses Diagnosis Parkinson's disease (H) Paralysis agitans documented in this encounter Administered Medications Inactive Administered Medications - up to 3 most recent administrations Medication Order MAR Action Action Date Dose Rate Site gadobutrol (GADAVIST) Given 08/26/2014 2:20 PM CDT 20 mLs Right Arm injection 20 mL 20 mL, Intravenous, ONCE, On Tu08/26/14 at 1430, For 1 dose, Supplied by, and administered by MRI. documented in this encounter Care Teams Ticket Writer Relationship Specialty Start Date End Date Lurdes Thomas MD PCP - General Internal Medicine 06/11/14 12/16/20 documented as of this encounter
--- OUTSIDE RECORDS SUMMARY | 2021-12-28 12:16 | XMS_ITS | Encounter Summary ---
:1955 Author Organization [place] Address [address] [place] [address]. [place] [address] Care Team Providers Name Role Phone Lurdes Thomas MD Primary Care Provider [phone] Reason for Visit Reason Onset Date Comments Other 07/21/2014 Pt. needs letter Encounter Details Date Type Department Care Team Description 07/21/2014 Telephone [facility] Gonzalez Rowland Other (Pt . needs Neurosurgery Clinic MD Tylor letter) See XX RESIGNED XX [address] [facility] [address] [place] [address] [place] [address] [place] [address] [place] [address] [phone] Social History Tobacco Use Types Packs/Day Years [...] this encounter Miscellaneous Notes Telephone Encounter - Judi Crane P - 07/21/2014 3:55 PM CST Could you please call this pt. To discuss a letter he needs? Thanks E SCENE EVIDENCE TECHNICIAN documented in this encounter Plan of Treatment Not on filedocumented as of this encounter Visit Diagnoses Not on filedocumented in this encounter Care Teams Paint Grinder Relationship Specialty Start Date End Date Lurdes Thomas MD PCP - General Internal Medicine 06/11/14 12/16/20 documented as of this encounter
--- OUTSIDE RECORDS SUMMARY | 2021-12-28 12:16 | XMS_ITS | Encounter Summary ---
:1955 Author Organization [place] Address [address] [facility] [place] [address] Care Team Providers Name Role Phone Lurdes Thomas MD Primary Care Provider [phone] Reason for Visit (Routine) - Closed Specialty Diagnoses / Procedures Referred By Contact Refer red To Contact Radiology / Radiology. Procedures Nuclear Medicine [place] [facility] [address] [place] [address] Phone: Fax: Referral ID Status Reason Start Date Expiration Date Visits Requ ested Visits Authorized [id number] Closed 06/20/2014 06/20/2015 1 1 Encounter Details Date Type Department Care Team Description 06/25/[address] [facility] Lurdes Thomas MD [address] [facility] [id number] [address] [facility] [phone] [place], [place] [address] (Wo rk) Social History Tobacco Use [...] Take 1 capsule 8 capsule 0 06/1208/01/2014 47411 UNIT (50,000 Units) by capsuleIndications: mouth every [...] (shortness of Resu lts for this [employer] breath) procedure are i n the results section. documented in this encounter Visit Diagnoses Not on filedocumented in this encounter Care Teams Leasing Director Relationship Specialty Start Date End Date Lurdes Thomas MD PCP - General Internal Medicine 06/11/14 12/16/20 documented as of this encounter
--- OUTSIDE RECORDS SUMMARY | 2021-12-28 12:16 | XMS_ITS | Encounter Summary ---
:1955 Author Organization [place] Address [address] [facility] [address] Care Team Providers Name Role Phone Lurdes Thomas MD Primary Care Provider [phone] Reason for Visit Auth/Cert - Closed Specialty Diagnoses / Procedures Referred By Contact Refer red To Contact Surgery Diagnoses [facility] DISEASE [facility] Periop Services Procedures OPTICAL TRACKING SYSTEM INSERTION DEEP BRAIN STIMULATION BILATERAL [address] [place] [address] Phone: Referral ID Status Reason Start Date Expiration Date Visits Requ ested Visits Authorized [id number] Closed 1 1 Encounter Details Date Type Department Care Team Description [facility] Simone Snider MD Care XX RESIGNED XX [address] [place] [address] [place] [id number] Social History Tobacco Use Types Packs/Day Years [...] Sign Reading Time Taken Comments Blood Pressure 126/74 09/10/2014 11:18 AM CDT Pulse - - Temperature 36.3 ??C (97.3 ??F) 09/10/2014 11:18 AM CDT Respiratory Rate 21 09/10/2014 11:00 AM CDT Oxygen Saturation 96% 09/10/2014 11:00 AM CDT Inhaled Oxygen Concentration - - Weight 97.3 kg (214 lb 8.1 oz) 09/10/2014 5:00 AM CDT Height 188 cm (6' 2) 09/09/2014 6:02 AM CDT Body Mass Index 27.54 09/09/2014 6:02 AM CDT documented in this encounter Discharge Summaries Rachel Cuadra APRN CNP - 09/10/2014 9:19 AM CDT [facility] Discharge Summary Neurosurgery Date of Admission: [...] up with further consultation recommendations. Rachel Cuadra DERMATOLOGY NURSE [facility] [address] [place] [address] Pager [phone] Significant Results and Procedures NONE Pending Results Unresulted Labs Ordered in the Past 30 Days of this Admission No orders found for last 60 day(s). Code Status Full Code Primary Care Physician Lurdes Laughlin Serum Physical Exam Temp: 97.9 ??F (36.6 ??C) [...] other recreational vehicles Call my office at [phone] for increasing redness, swelling or pus draining [...] deep brain stimulator placement vitamin D (ERGOCALCIFEROL) 77094 UNIT capsule Take 1 capsule (50,000 Units) [...] documented in this encounter Discharge Instructions Discharge Rachel Muñoz APRN DERMATOLOGY NURSE - 09/10/2014 9:19 AM CDT Discharge instructions: No lifting of more than 10 pounds until follow up visit as scheduled Ok to walk as tolerated, avoid bedrest. Ok to use ice to areas. No contact sports until after follow up visit No high impact activities such as; running/jogging, Biking, snowmobile or 4 miller riding or any other recreational vehicles Call my office at [phone] for increasing redness, swelling or pus draining [...] Take 1 capsule 4 capsule 2 08/2602/12/2015 00781 UNIT (50,000 Units) by capsuleIndications: Vitamin mouth [...] MD - 08/25/2014 12:38 PM CDT [address] [address] Dept: [phone] PRE-OP EVALUATION: Today's date: 08/25/2014 Andrew Poly (: 1955) presents for pre-operative evaluation assessment [...] cardiovascular risks for perioperative complications such as (AZ, PE, VFib and 3?? AV Block): No [...] evaluation report is provided to requesting physician. [place] Preop Guidelines documented in this encounter Nursing [...] care (reference Craniotomy/Craniectomy/Cranioplasty (Adult) CPG). Outcome: Improving [id number] Neuro: slight tremors hands, would freeze at times with walking/transfer otherwise intact as pre hospitalization per pt. CV: Nicardipine weaned to off keeping SB/P 90-140. GI Eating well. U/O voiding. Discharge instructions reviewed and given, see paper sheets. Discharged with to [facility] with w/cand volunteer Plan of Care - [...] neuro checks to resume. Op Note - CeicGonzalez hook - 09/09/2014 10:52 AM CDT PREOPERATIVE DIAGNOSIS: Parkinson's Disease POSTOPERATIVE DIAGNOSIS: same OPERATIVE PROCEDURE: bilateral STN deep brain stimulator placement SURGEON: Gonzalez Rowland MD Club Concierge: Arline Hutson NP 59 yo man with [...] eda holes were made with the 14mm carburetor rebuilder drill over the markedbony entry points. The [...] microelectrode were inserted at 15mm above target, [id number] and impedences confirmed <400kohms. I began advancing [...] effects. The decisionwas made to insert a [employer] 3389 macroelectrode with the distal 0 contact [...] The decision was made to insert a [employer]onic 3389 macroelectrode with the distal 0 contact [...] 8:20 CDT AM CDT Gonzalez Rowland MD [facility] POCT Performing Organization Address City/State/ZIP Code [...] stimulator leads. LOGAN GUILLERMO MD Arline Peñaloza SOFT SHOE DANCER DERMATOLOGY NURSE IMG CT ORDERABLES Hemoglobin (09/09/2014 6:10 AM CDT) P athologist Signature Hemoglobin 14.8 13.3 - 17.7 [place] g/dL [facility] Specimen Anatomical Collection Method Collection Time Receive d Time (Source) Location / / Volume Laterality Blood specimen 09/09/2014 6:10 AM 015 6:13 (specimen) CDT AM CDT [facility] LAB - BLOOD ORDERABLES Performing Organization Address City/State/ZIP Code Phon e Number M [facility] [address], [place] [address] [facility] [address] [place] [address] Potassium (09/09/2014 6:10 AM CDT) athologist Signature Potassium 3.4 3.4 - 5.3 [place] mmol/L [facility] Specimen Anatomical Collection Method Collection Time Receive d Time (Source) Location / / Volume Laterality Blood specimen 09/09/2014 6:10 AM 015 6:13 (specimen) CDT AM CDT [facility] LAB - BLOOD ORDERABLES Performing Organization Address City/State/ZIP Code Phon e Number [facility] [address] [place] [address] [facility] [address] [place] [address] documented in this encounter Visit Diagnoses Diagnosis S/P deep brain stimulator placement documented in this encounter Administered Medications Inactive Administered Medications - up to 3 most recent administrations Medication Order MAR Action Action Date Dose Rate Site 0.9% sodium chloride Rate/Dose Verify 09/10/2014 7:51 AM 1,000 mLs 7 5 mL/hr infusion CDT at 75 mL/hr, Intravenous, CONTINUOUS, Until tolerating PO, Post-procedure, Starting on Mon09/09/14 at 1215, Until Mon09/10/14 at 1701 Rate/Dose Verify 09/09/2014 4:28 PM CDT 1,000 mLs 75 mL/hr New Bag 09/09/2014 12:35 PM CDT 1,000 mLs 75 mL/hr amantadine (SYMMETREL) capsule 100 mg Given 09/10/2014 9:17 AM CDT 100 mg 100 mg, Oral, 2 TIMES DAILY, First dose (after last modification) on Mon09/09/14 at 1245, 0600 and 1000 Given 09/10/2014 5:28 AM CDT 100 mg Given 09/09/2014 8:07 PM CDT 100 mg carbidopa-levodopa (SINEMET CR) 50-200 MG Given 2014 12:28 PM CDT 1 tablet per tablet 1 tablet 1 tablet, Oral, 2 TIMES DAILY, First dose on Mon09/09/14 at 1215, DO NOT CRUSH. carbidopa-levodopa (SINEMET CR) 50-200 MG Given 09/10/2014 9 :18 AM CDT 1 tablet per tablet 1 tablet 1 tablet, Oral, 4 TIMES DAILY, First dose (after last reorder) on Mon09/09/14 at 1430, DO NOT CRUSH. GIve at 0600 1000 1430 and 1900 Given 09/10/2014 5:28 AM CDT 1 tablet Given 09/09/2014 6:51 PM CDT 1 tablet carbidopa-levodopa (SINEMET) 25-100 MG 1 Given 09/09/2014 11 :43 AM CDT 1 tablet tablet 1 tablet, Oral, 3 TIMES DAILY, First dose on Mon09/09/14 at 1400, PACU citalopram (celeXA) tablet 10 mg Given 09/10/2014 9:19 AM CDT 10 mg 10 mg, Oral, DAILY, First dose on Mon09/10/14 at 0900 entacapone (COMTAN) tablet 200 mg Given 09/10/2014 9:20 AM CDT 200 mg 200 mg, Oral, 4 TIMES DAILY, First dose (after last reorder) on Mon09/09/14 at 1430, First dose in PACU once patient able to take PO. Give at 0600 1000 1430 1900 Given 09/10/2014 5:28 AM CDT 200 mg Given 09/09/2014 6:51 PM CDT 200 mg hydrochlorothiazide (HYDRODIURIL) tablet 25 mg Given 09/10/2014 9:20 AM CDT 25 mg 25 mg, Oral, DAILY, First dose on Mon09/10/14 at 0900 HYDROmorphone (PF) (DILAUDID) injection Given 09/09/2014 11:29 A M CDT 0.5 mg 0.3-0.5 mg 0.3-0.5 mg, Intravenous, EVERY 5 MIN PRN, moderate to severe pain, acute pain. May administer if RR is > 10 , Starting on Mon09/09/14 at 1030, If fentanyl is also ordered, use HYDROmorphone if pain control insufficient with fentanyl or a longer acting agent is needed. Max cumulative dose = 2 mg, PACU HYDROmorphone (PF) (DILAUDID) injection Given 09/09/2014 6:51 PM CDT 0.5 mg 0.3-0.5 mg 0.3-0.5 mg, Intravenous, EVERY 30 MIN PRN, severe pain, Starting on Mon09/09/14 at 1209, Post-procedure Given 09/09/2014 4:00 PM CDT 0.5 mg Given 09/09/2014 1:01 PM CDT 0.5 mg lactated ringers infusion New Bag 09/09/2014 10:20 AM CDT at 75-100 mL/hr, Intravenous, CONTINUOUS, UNLESS otherwise indicated., Pre-procedure, Starting on Mon09/09/14 at 0545, Until Mon09/09/14 at 1053 New Bag 09/09/2014 6:25 AM CDT 1,000 mLs 75 mL/hr lidocaine BUFFERED 1 % solution 0.1-1 mL Given 09/09/2014 6:26 AM CDT 0.5 mLs 0.1-1 mL, Intradermal, ONCE PRN, mild pain with VAD insertion or accessing implanted port., Starting on Mon09/09/14 at 0543, For 1 dose, Do NOT give if patient has a history of allergy to any local anesthetic or any abdi product., Pre-procedure niCARdipine 40 mg in 200 mL 0.9% Rate/Dose Change 09/09/2014 11:10 AM CDT 9 mL/hr NaCl (CARDENE) infusion CONTINUOUS PRN, Starting on Mon09/09/14 at 0844, Anesthesia Intra-op Rate/Dose Verify 09/09/2014 11:06 AM CDT 11 mL/hr Rate/Dose Change 09/09/2014 10:59 AM CDT 11 mg/hr 55 mL/hr niCARdipine 40 mg in 200 Rate/Dose Verify 09/10/2014 7:51 AM 2.5 mg /hr 12.5 mL/hr mL 0.9% NaCl (CARDENE) CDT infusion 2.5-15 mg/hr (12.5-75 mL/hr), Intravenous, CONTINUOUS, Starting on Mon09/09/14 at 1215, Titrate by 2.5 mg/hr q 15 minutes (max 15 mg/hr) to maintain SBP between 90 to 140 mmHg. Notify MD within 1 hour if BP parameters are not met. Discontinue upon discharge from ICU. Central line preferred. To minimize risk of peripheral venous irritation, it is recommended that the site of infusion be changed every 12 hours., Post-procedure Rate/Dose Change 09/10/2014 7:00 AM CDT 5 mg/hr 25 mL/hr New Bag 09/10/2014 3:30 AM CDT 6.5 mg/hr 32.5 mL/hr omeprazole (priLOSEC) capsule 20 mg Given 09/10/2014 9:19 AM CDT 20 mg 20 mg, Oral, DAILY, First dose on Mon09/09/14 at 1215 Given 09/09/2014 2:40 PM CDT 20 mg pravastatin (PRAVACHOL) tablet 80 mg Given 09/10/2014 9:17 AM CDT 80 mg 80 mg, Oral, DAILY, First dose (after last modification) on Mon09/10/14 at 0900 rotigotine (NEUPRO) 8 MG/24HR 1 patch Given 09/10/2014 8:11 AM CDT 1 patch 1 patch, Transdermal, DAILY, First dose on Mon09/09/14 at 1000, Place patch in PACU once patient is awake and alert. Given 09/09/2014 1:56 PM CDT 1 patch rotigotine (NEUPRO) Patch in Given 09/09/2014 10:55 PM CDT [address] Deltoid Place First dose on Mon09/09/14 at 0730, Chart every shift, confirming that patch is still in place on patient (no barode scan needed). See patch order for dose information. senna-docusate (SENOKOT-S;PERICOLACE) Given 09/10/2014 9:18 AM C DT 1 tablet 8.6-50 MG per tablet 1-2 tablet 1-2 tablet, Oral, 2 TIMES DAILY, First dose on Mon09/09/14 at 1215, Start with 1 tablet PO BID, If no bowel movement in 24 hours, increase to 2 tablets PO BID. Hold for loose stools. Preferred agent for constipation related to opioids., Post-procedure Given 09/09/2014 8:07 PM CDT 1 tablet sodium chloride (PF) 0.9% PF flush 3 mL Given 09/10/2014 5:26 AM CDT 10 mLs 3 mL, Intravenous, EVERY 8 HOURS, First dose on Mon09/09/14 at 1215, to lock peripheral IV dormant line. Also Ordered Q1H PRN, Post-procedure Given 09/09/2014 10:55 PM CDT 10 mLs documented in this encounter Active and Recently Administered Medications Times are shown in CDT. Scheduled Medication Order 09/08/2014 09/09/2014 09/10/2014 amantadine (SYMMETREL) capsule 100 mg (CANCELED) 1402 (Given - Provider: Nasim Haddad RN)2006 (Given - Provider: Nomi Manuel, JAMAL - Comment: Pt states he has not taken his two doses today.) 0528 (Given - Provider: Nomi Manuel RN)0917 (Given - Provider: Ivelisse Mccormack, JAMAL) 100 mg, Oral, 2 TIMES DAILY, First dose on Mon09/09/14 at 1245, 0600 and 1000 carbidopa-levodopa (SINEMET CR) 50-200 MG per tablet 1 table t (CANCELED) 1228 (Given - Provider: Nasim Haddad RN) 1 tablet, Oral, 2 TIMES DAILY, First dose on Mon at 1215, DO NOT CRUSH. carbidopa-levodopa (SINEMET CR) 50-200 MG per tablet 1 table t (CANCELED) 1441 (Given - Provider: Nasim Haddad RN)1851 (Given - Provider: Chloé Davalos RN) 0528 (Given - Provider: Nomi Manuel , JAMAL)0918 (Given - Provider: Ivelisse Mccormack RN)1430 (Canceled [...] RN)0754 (Given - Provider: Millicent Enciso APRN CRNA)0954 (Given - Provider: Millicent Enciso APRN CRNA) [...] RN) 0528 (Given - Provider: Nomi Manuel RN)0920 (Given - Provider: Ivelisse Mccormack RN)1430 (Canceled [...] Manuel RN) 0918 (Given - Provider: Ivelisse Mccormack RN) 1-2 tablet, Oral, 2 TIMES DAILY, [...] IV Infusing)2255 (Given - Provider: Nomi Manuel, RN) 0526 (Given - Provider: Nomi Manuel , RN)1215 (Canceled Entry - Provider: Orders Generic Provider [...] RN)1628 (Rate/Dose Verify - Provider: Chloé Davalos, RN) 0751 (Rate/Dose Verify - Provider: Ivelisse Mccormack, RN)1100 (Stopped - Provider: Ivelisse Mccormack RN) at 75 mL/hr, Intravenous, CONTINUOUS, Un til tolerating PO, Post-procedure, Starting Mon09/09/14 at 1215, Until Mon09/10/14 at 1701 lactated ringers infusion (CANCELED) 062 5 (New Bag - Provider: Lori Comer RN)0726 (Anesthesia Volume Adjustment - Provider: Millicent Enciso APRN LEVEL VIAL GRINDER)1020 (New Bag - Provider: Millicent Enciso APRN LEVEL VIAL GRINDER)1059 (Anesthesia Volume Adjustment - Provider: Millicent Enciso APRN LEVEL VIAL GRINDER) at 75-100 mL/hr, Intravenous, CONTINUOUS , UNLESS otherwise indicated., Pre- procedure, Starting Mon09/09/14 at 0545, Until Mon09/09/14 at 1053 niCARdipine 40 mg in 200 mL 0.9% NaCl (CARDENE) infusion (CA NCELED) 1215 (New Bag - Provider: Nasim Haddad, JAMAL)1638 (New Bag - Provider: Chloé Davalos, RN)1732 (Rate/Dose Change - Provider: Chloé Davalos, RN)2253 (New Bag - Provider: Nomi Manuel, JAMAL) 0330 (New Bag - Provider: Nomi Manuel, RN)0700 (Rate/Dose Change - Provider: Nomi Manuel, JAMAL)0751 (Rate/Dose Verify - Provider: Ivelisse Mccormack RN)0910 (Stopped - Provider: Ivelisse Mccormack RN) 2.5-15 mg/hr (12.5-75 mL/hr), at 12.5-75 mL/hr, [...] (CANCELED ) 1129 (Given - Provider: Cami Alves RN) 0.3-0.5 mg, Intravenous, EVERY 5 MIN PRN [...] (CANCELED ) 1301 (Given - Provider: Nasim Haddad RN)1600 (Given - Provider: Georges Hedrick, JAMAL)1851 (Given - Provider: Chloé Davalos RN) 0.3-0.5 mg, Intravenous, EVERY 30 MIN MS N, Starting 09/09/14 at 1209, Until Mon09/10/14 at 1701, severe pain, Post-procedure lidocaine 1%, EPINEPHrine 1:100,000 with bupivacaine 0.5% mixed 1:1 60 mL + 10 mL 8.4% sodium bicarbonate (CANCELED) 1011 (Given - Pr ovider: Gonzalez Rowland - Comment: 12 ml.of the sodium bicarb used) PRN, Starting Mon09/09/14 at 1011, Intra-procedure lidocaine BUFFERED 1 % solution 0.1-1 mL (COMPLETED) 0626 (Given - Provider: Lori Comer, RN) 0.1-1 mL, Intradermal, ONCE PRN, mild pa in with VAD insertion or accessing implanted port., Starting Mon09/09/14 at 0543, For 1 dose, Do NOT give if patient has a history of allergy to any local anesthetic or any abdi product., Pre-procedure mineral oil OIL (CANCELED) 0858 (Given - Provider: Gonzalez Rowland - Comment: used for intruments) PRN, Starting Mon09/09/14 at 0858, Intra-procedure niCARdipine 40 mg in 200 mL 0.9% NaCl (CARDENE) infusion (CA NCELED) 0844 (New Bag - Provider: Millicent Enciso APRN LEVEL VIAL GRINDER - Comment: surgeon and MDA aware of infusion starting)0850 (Rate/Dose Change - Provider: Millicent Enciso APRN LEVEL VIAL GRINDER)0853 (Rate/Dose Change - Provider: Millicent Enciso APRN LEVEL VIAL GRINDER) CONTINUOUS PRN, Starting on Mon09/09/14 at 0844, Anesthesia Intra-op 0900 (Rate/Dose Change - Provider: Millicent Enciso APRN LEVEL VIAL GRINDER)0915 (Rate/Dose Change - Provider: Millicent Enciso APRN LEVEL VIAL GRINDER)0930 (Rate/Dose Change - Provider: Millicent Enciso APRN LEVEL VIAL GRINDER)0945 (Rate/Dose Change - Provider: Millicent Enciso APRN LEVEL VIAL GRINDER) 1000 (Rate/Dose Scott ge - Provider: Millicent Enciso APRN LEVEL VIAL GRINDER)1018 (Rate/Dose Change - Provider: Millicent Enciso APRN LEVEL VIAL GRINDER)1025 (Rate/Dose Change - Provider: Millicent Enciso APRN LEVEL VIAL GRINDER)1030 (Rate/Dose Change - Provider: Millicent Enciso APRN CRNA) 1040 (Rate/Dose Scott ge - Provider: Millicent Enciso APRN CRNA)1045 (Rate/Dose Change - Provider: Millicent Enciso APRN CRNA)1050 (Rate/Dose Change - Provider: Millicent Enciso APRN CRNA)1059 (Rate/Dose Change - Provider: Millicent Enciso APRN CRNA) 1106 (Rate/Dose Veri fy - Provider: Cami Alves, JAMAL)1110 (Rate/Dose Change - Provider: Cami Alves, JAMAL)1156 (ED Infusing on Admission/transfer - Provider: Cami Alves, JAMAL) sodium chloride 0.9% (bottle) irrigation (CANCELED) 0900 (Given - Provider: Gonzalez Rowland) PRN, Starting 09/09/14 at 0900, Intra-procedure thrombin 5000 UNITS vial (CANCELED) 0858 (Given - Provider: Gonzalez Rowland) PRN, Starting 09/09/14 at 0858, Intra-procedure rrpevels-wmgmgwnayk-myotvnfqk-calcium (TISSEEL) topical solu tion (CANCELED) 0859 (Given - Provider: Gonzalez Rowland)0900 (Given - Provider: Gonzalez Rowland)0901 (Given - Provider: Gonzalez Rowland)0921 (Given - Provider: Gonzalez Rowland)0943 (Given - Provider: Gonzalez Rowland) PRN, Starting 09/09/14 at 0859, Intra-procedure documented in this encounter Care Teams Upper Marker Relationship Specialty Start Date End Date Lurdes Thomas MD PCP - General Internal Medicine 06/11/14 12/16/20 documented as of this encounter
--- OUTSIDE RECORDS SUMMARY | 2021-12-28 12:16 | XMS_ITS | Encounter Summary ---
:1955 Author Organization [facility] Address [address] [place] [address]. [place] [address] Care Team Providers Name Role Phone Lurdes Thomas MD Primary Care Provider Reason for Visit Reason Comments Pre-Op Exam Encounter Details Date Type Department Care Team Description 08/11/2014 Office Visit [facility] Lurdes Thomasop gen eral physical exam (Primary Dx); Uzair Laughlin MD Parkinson disease (H); [address] swelling; [place] [address] [place] Acute bronchitis [phone] [place], [place] [address] Social History Tobacco Use Types Packs/Day Years [...] Sign Reading Time Taken Comments Blood Pressure 124/68 08/11/2014 6:46 PM CDT Pulse 80 08/11/2014 6:46 PM CDT Temperature 36.7 ??C (98 ??F) 08/11/2014 6:46 PM CDT Respiratory Rate - - Oxygen Saturation - - Inhaled Oxygen Concentration - - Weight 98.8 kg (217 lb 14.4 oz) 08/11/2014 6:46 PM CDT Height 185.4 cm (6' 1) 08/11/2014 6:46 PM CDT Body Mass Index 28.75 08/11/2014 6:46 PM CDT documented in this encounter Patient Instructions Patient InstructionsTamy Leahy LPN - 08/11/2014 2:01 PM CDT Before Your Surgery ??? Call your surgeon if there is any change in your health. This includes signs of a cold or flu (such as a sore throat, runny nose, cough, rash or fever). ??? Do not smoke, drink alcohol or take over the counter medicine (unless your surgeon or primary care doctor tells you to) for the 24 hours before and after surgery. ??? If you take prescribed drugs: take everything except the pravastatin on the morning of surgery ??? Eating and drinking prior to surgery: follow the instructions from your surgeon ??? Take a shower or bath the night before surgery. Use the soap your surgeon gave you to gently clean your skin. If you do not have soap from your surgeon, use your regular soap. Do not shave or scrubthe surgery site. Wear clean pajamas and have clean sheets on your bed. - Start hydrochlorothiazide 25 mg once a day in the morning for swelling - doxycyline 1 pill twice a day for 10 days for cough - follow-up in 2 weeks to recheck cough and check electrolytes/kidney function documented in this encounter Progress Notes Lurdes Thomas MD - 08/11/2014 2:01 PM CDT [address] [address] Dept: [phone] PRE-OP EVALUATION: Today's date: 08/11/2014 Andrew Pang (: 1955) presents for pre-operative evaluation assessment as requested by . He requires evaluation and anesthesia risk assessment prior to undergoing surgery/procedurefor treatment of Parkinson's . Proposed procedure: Deep Brain Stimulator insertion Date of Surgery/ Procedure: 09/09 Time of Surgery/ Procedure: 529 Hospital/Surgical Facility: [facility] Primary Physician: Lurdes Thomas Type of Anesthesia Anticipated: General Patient has a Health Care Directive or Living Will: NO 1. NO - Do you have a history of heart attack, stroke, stent, bypass or surgery on an artery in the head, neck, heart or legs? 2. YES - DO YOU EVER HAVE ANY PAIN OR DISCOMFORT IN YOUR CHEST? Past due to GERD 3. NO - Do you have a history of Heart Failure? 4. YES - ARE YOUR TROUBLED BY SHORTNESS OF BREATH WHEN WALKING ON THE LEVEL, UP A SLIGHT HILL OR AT NIGHT? Had negative cardiac ECHO, stress test and PFTs with only mild restrictive patter, seeing pulmonology - recommended pulse oximetry test overnight (O2 decreased to 86%). Recommended sleep study. 5. NO - Do you currently have a cold, bronchitis or other respiratory infection? 6. YES - DO YOU HAVE A COUGH, SHORTNESS OF BREATH OR WHEEZING? Cough left over from URI 2 weeks ago - congestion, cough about 2 weeks ago. Resolved and started to have cough over hte last week. Feels deep in chest - cough is productive. No fever. SOB unchanged. Cough a little better today. 7. NO - Do you sometimes get [...] relatives ever had problems with anesthesia? 14. YES - DO YOU HAVE SLEEP APNEA, EXCESSIVE SNORING OR DAYTIME DROWSINESS? All of the above - has sleep study planned in October 03. NO - Do you have any prosthetic [...] kidney function normal. Likely from venous insufficiency. Plans to start diuretic 3. Cough - Cough left over from URI 2 weeks ago - congestion, cough about 2 weeks ago. Resolved and started to have cough over hte last week. Feels deep in chest - cough is productive. No fever. SOB unchanged. Cough a little better today. 4. HLP: on pravastatin but not taking every day. Restarted recently. MEDICAL HISTORY: Patient Active Problem List Diagnosis [...] Outpatient Prescriptions Medication Sig Dispense Refill ??? hydrochlorothiazide (HYDRODIURIL) 25 MG tablet Take 1 tablet (25 mg) by mouth daily 30 tablet 1 ??? doxycycline (VIBRAMYCIN) 100 MG capsule Take 1 capsule (100 mg) by mouth 2 times daily 20 capsule 0 ??? rotigotine (NEUPRO) 8 MG/24HR Place 1 [...] tablet by mouth 3 times daily. ??? pravastatin (PRAVACHOL) 80 MG tablet Take 1 tablet by mouth daily. 90 tablet 3 ??? sildenafil (VIAGRA) 50 MG tablet Take 1 tablet by mouth daily as needed for erectile dysfunction. 10 tablet 12 ??? carbidopa-levodopa (SINEMET CR) 50-200 MG per tablet Take by mouth 2 times daily. Pt unsure of dose OTC products: vitamin C No Known Allergies Latex Allergy: NO History Substance Use Topics ??? Smoking status: Never Smoker ??? Smokeless tobacco: Never Used ??? Alcohol Use: Yes Comment: not often History Drug Use No REVIEW OF SYSTEMS: Constitutional, neuro, ENT, endocrine, pulmonary, cardiac, gastrointestinal, genitourinary, musculoskeletal, integument and psychiatric systems are negative, except as otherwise noted. EXAM: BP 124/68 Pulse 80 Temp(Src) 98 ??F (36.7 ??C) (Tympanic) Ht 6' 1 (1.854 m) Wt 217 lb 14.4 oz (98.839 kg) BMI 28.75 kg/m2 GENERAL APPEARANCE: alert and no distress EYES: EOMI, - PERRL HENT: ear canals and TM's normal and nose and mouth without ulcers or lesions NECK: no adenopathy, no asymmetry, masses, or scars and thyroid normal to palpation RESP: mildly decreased air movement, crackles in Left lung base, no wheezes CV: regular rates and rhythm, normal S1 S2, no S3 or S4 and no murmur, click or rub -2+ edema in right ankle and 1+ edema in left ankle ABDOMEN: soft, nontender, no HSM or masses and bowel sounds normal MS: extremities normal- no gross deformities noted, no evidence of inflammation in joints, FROM in all extremities. SKIN: no suspicious lesions or rashes NEURO: Normal strength and tonel, mentation intact and speech normal, mild right hand tremor at rest, mild [...] CR 0.82 0.94 IMPRESSION: Reason for surgery/procedure: Deep brain stimulator Diagnosis/reason for consult: elaine-operative management The proposed surgical procedure is considered INTERMEDIATE risk. REVISED CARDIAC RISK INDEX The patient has the following serious cardiovascular risks for perioperative complications such as (NE, PE, VFib and 3?? AV Block): No serious cardiac risks INTERPRETATION: 0 risks: Class I (very low risk - 0.4% complication rate) The patient has the following additional risks for perioperative complications: No identified additional risks ICD-9-CM 1. Preop general physical exam V72.83 2. Parkinson disease 332.0 3. Leg swelling 729.81 Work-up negative. Likely venous insufficiency hydrochlorothiazide (HYDRODIURIL) 25 MG tablet F/u in 2 weeks to recheck swelling and check BMP 4. Acute bronchitis 466.0 Prolonged cough after viral illness likely post-viral, but given crackles on exam, comorbid illness and upcoming surgery; will tx. Unable to use azithromycin as both amantadine and azithro prolong QTC doxycycline (VIBRAMYCIN) 100 MG capsule - Recheck in 2 weeks RECOMMENDATIONS: --Approval given to proceed with proposed procedure, pending response to antibiotics - will recheck in 2 weeks --Patient is to take all scheduled medications [...] evaluation report is provided to requesting physician. [facility] Preop Guidelines documented in this encounter Nursing Notes Tamy Leahy LPN - 08/11/2014 6:47 PM CDT Chief Complaint Patient presents with ??? Pre-Op Exam Initial BP 124/68 Pulse 80 Temp(Src) 98 ??F (36.7 ??C) (Tympanic) Ht 6' 1 (1.854 m) Wt 217 lb 14.4 oz (98.839 kg) BMI 28.75 kg/m2 Estimated body mass index is 28.75 kg/(m^2) as calculated from the following: Height as of this encounter: 6' 1 (1.854 m). Weight as of this encounter: 217 lb 14.4 oz (98.839 kg). BP completed using cuff size: large Tamy Leahy LPN documented in this encounter Plan of Treatment Not on filedocumented as of this encounter Visit Diagnoses Diagnosis Preop general physical exam - Primary Other specified pre-operative examinatio n Parkinson disease (H) Paralysis agitans Leg swelling Swelling of limb Acute bronchitis documented in this encounter Care Teams Grinder Operator Tool Relationship Specialty Start Date End Date Lurdes Thomas MD PCP - General Internal Medicine 06/11/14 12/16/20 documented as of this encounter
--- OUTSIDE RECORDS SUMMARY | 2021-12-28 12:16 | XMS_ITS | Encounter Summary ---
:1955 Author Organization [facility] Address [address] [facility] [place] [address] Care Team Providers Name Role Phone Lurdes Thomas MD Primary Care Provider [phone] Encounter Details Date Type Department Care Team Description 07/08/2014 Medical Correspondence [facility], Non-Provider NEUROLOG Y-ORDER-2/ Health Info [facility] 11/2014 [address] [address] [place] [address] Social History Tobacco Use Types Packs/Day [...] filedocumented in this encounter Care Teams Supervisor Adult Education Relationship Specialty Start Date End Date Lurdes Thomas MD PCP - General Internal Medicine 06/11/14 12/16/20 documented as of this encounter
--- OUTSIDE RECORDS SUMMARY | 2021-12-28 12:16 | XMS_ITS | Encounter Summary ---
:1955 Author Organization [facility] Address [address] [facility] [place] [address] Care Team Providers Name Role Phone Lurdes Thomas MD Primary Care Provider [phone] Encounter Details Date Type Department Care Team Description 07/18/2014 Hospital Encounter [facility] [address] [facility] [place] [id number] Social History Tobacco Use Types Packs/Day Years [...] Take 1 capsule 8 capsule 0 06/1208/01/2014 68616 UNIT (50,000 Units) by capsuleIndications: mouth every [...] Priority Date/Time Associated Diagnosis Comme nts MR EXTERNAL IMAGING Routine 05/26/2014 11:24 AM R esults for this ABDOMEN CAREER AND TECHNOLOGY EDUCATION TEACHER procedure are i n the results section. documented in this encounter Results MR Digital Archive Non-[place] (05/26/2014 11:24 AM CAREER AND TECHNOLOGY EDUCATION TEACHER) Specimen (Source) Anatomical Location Collection Method / Collectio n Time Received Time / Laterality Volume Narrative [facility] - 07/18/2014 11:24 AM CAREER AND TECHNOLOGY EDUCATION TEACHER <!--EPICS-->Digitized exam for comparison only; no results available<!--EPICE--> Radiology Non-Fv Credentialed Provider IMG EXTERNAL IM AGING ORDERABLES Performing Organization Address City/State/ZIP Code Phon e Number [facility] documented in this encounter Visit Diagnoses Not on filedocumented in this encounter Care Teams Die Cutting Machine Operator Relationship Specialty Start Date End Date Lurdes Thomas MD PCP - General Internal Medicine 06/11/14 12/16/20 documented as of this encounter
--- OUTSIDE RECORDS SUMMARY | 2021-12-28 12:16 | XMS_ITS | Encounter Summary ---
:1955 Author Organization [facility] Address [address] [place] [address] Care Team Providers Name Role Phone Lurdes Thomas MD Primary Care Provider [phone] Encounter Details Date Type Department Care Team Description 09/03/2014 Medical Correspondence [facility] FELICE Hernández KATHY [facility], Non-Provider MD-ORDER -09/03/2014 Health Info [facility] [address] [facility] [place] [address] Social History Tobacco Use Types [...] on filedocumented in this encounter Care Teams Transportation Maintenance Worker Relationship Specialty Start Date End Date Lurdes Thomas MD PCP - General Internal Medicine 06/11/14 12/16/20 documented as of this encounter
--- OUTSIDE RECORDS SUMMARY | 2021-12-28 12:16 | XMS_ITS | Encounter Summary ---
:1955 Author Organization [facility] Address [address] [facility] [place] [address] Care Team Providers Name Role Phone Lurdes Thomas MD Primary Care Provider [phone] Reason for Visit (Routine) - Closed Specialty Diagnoses / Procedures Referred By Contact Refer red To Contact Radiology / Radiology. Procedures Nuclear Medicine [place] [facility] [place] [address] Phone: Fax: Referral ID Status Reason Start Date Expiration Date Visits Requ ested Visits Authorized [id number] Closed 06/20/2014 12/17/2014 1 1 Encounter Details Date Type Department Care Team Description 06/25/2014 Hospital Encounter [facility] Lurdes Thomas MD [address] [facility] [address] [address] [facility] [phone] [place], [place] [address] (Wo rk) Social History [...] Take 1 capsule 8 capsule 0 06/1208/01/2014 04511 UNIT (50,000 Units) by capsuleIndications: mouth every [...] (shortness of Resu lts for this LEXISCAN SUPERVISOR PRESS ROOM breath) procedure are i n the results section. documented in this encounter Visit Diagnoses Not on filedocumented in this encounter Care Teams Auto Body Repairman Relationship Specialty Start Date End Date Lurdes Thomas MD PCP - General Internal Medicine 06/11/14 12/16/20 documented as of this encounter
--- OUTSIDE RECORDS SUMMARY | 2021-12-28 12:16 | XMS_ITS | Encounter Summary ---
:1955 Author Organization [facility] Address [address] [facility] [place] [address] Care Team Providers Name Role Phone Lurdes Thomas MD Primary Care Provider [phone] Reason for Visit (Routine) - Closed Specialty Diagnoses / Procedures Referred By Contact Refer red To Contact Radiology / Radiology. Diagnoses R#NA, BC, Epic Order Sh Ct Scan Procedures [place] [address] [place] [address] Phone: Referral ID Status Reason Start Date Expiration Date Visits Requ ested Visits Authorized [id number] Closed 08/11/2014 08/11/2015 1 1 Encounter Details Date Type Department Care Team Description 09/08/2014 Hospital Encounter [facility] Rachel Cuadra rkinson's disease [facility], QUALITY DIRECTOR NURSE PRACTITIONER ADULT (H) [address] [place] [address] ORTHOPEDICS [phone] [place] [address] Social History Tobacco Use Types Packs/Day Years [...] Take 1 capsule 4 capsule 2 08/2602/12/2015 [id number] UNIT (50,000 Units) by capsuleIndications: Vitamin mouth every 7 D deficiency disease days documented as of this encounter Plan of Treatment Not on filedocumented as of this encounter Procedures Procedure Name Priority Date/Time Associated Diagnosis Comme nts CT HEAD W/O Routine 09/08/2014 12:20 PM Parkinson's disease R esults for this CONTRAST CDT (H) procedure are i n the results section. documented in this encounter Results CT Head w/o Contrast [...] abnormality. FAMILIA GUILLERMO MD Rachel Cuadra APRN NURSE PRACTITIONER ADULT IMG CT ORDERABLES documented in this encounter Visit Diagnoses Diagnosis Parkinson's disease (H) Paralysis agitans documented in this encounter Care Teams Beater Worker Helper Relationship Specialty Start Date End Date Lurdes Thomas MD PCP - General Internal Medicine 06/11/14 12/16/20 documented as of this encounter
--- OUTSIDE RECORDS SUMMARY | 2021-12-28 12:16 | XMS_ITS | Encounter Summary ---
:1955 Author Organization [place] Address [address] [place] [address] Care Team Providers Name Role Phone Ludres Thomas MD Primary Care Provider Reason for Visit Auth/Cert - Closed Specialty Diagnoses / Procedures Referred By Contact Refer red To Contact Surgery Diagnoses PARKINSONS DISEASE Sh Periop Services Procedures OPTICAL TRACKING SYSTEM INSERTION DEEP BRAIN STIMULATION BILATERAL [address] [place] [address] Phone: Referral ID Status Reason Start Date Expiration Date Visits Requ ested Visits Authorized [id number] Closed 1 1 Encounter Details Date Type Department Care Team Description 09/09/2014 Anesthesia Event [facility] Andrew Narayan [place] [facility] shyann [facility]ITTAKER [address] [facility] [address] [place] [id number] [phone] [place] [address] Anesthesia Record Procedure Summary Procedure Name Responsible Anesthesia Start Anesthesia Stop Anesthesiologist Time Time BILATERAL SUBTHALMIC Andrew Narayan MD 09/09/14 0726 09/09 1059 NUCLEUS DEEP BRAIN STIMULATOR (Bilateral Head) Events Date Time Event Comment 09/09/2014 0657 0726 An Start 0728 An Start Data 0740 Present 0806 AN INCISION 0807 Present 0900 Present 0947 Quick Note Restarting sedat ion per surgeon 1002 Present 1026 Quick Note Pt. Off of 02 1033 an stop data 1033 Quick Note To ER CT scanner with monitors. VSS. 1056 Quick Note Pt. Back from CT and in PACU. VSS thru transfer and in CT scanner. o rt to RN. 1059 An Stop Electronically s igned by Millicent Enciso on September 09, 2014 10:59 AM Name Total fentanyl 50mcg/mL 100 mcg ondansetron 2mg/mL 4 mg propofol 10mg/mL 60 mg propofol 10mg/mL 790.99 mg hydrALAZINE 20mg/mL 40 mg ceFAZolin (ANCEF) intermittent infusion 2 g (pre-mix) 3 g niCARdipine drip 0.2mg/mL (mg/hr) 25.08 mg labetalol syringe 20mg 15 mg lactated ringers infusion 1,000 mL Agents Name O2 Exp Sevoflurane O2 Delivery Device Ins Sevoflurane O2 Auxiliary Blood No blood administrations on file. Lines, Drains, and Airways Type Details Placement Removal Incision/Surgical Site 09/09/14; 1013; 09/09/14 1013 by Bilateral; Head Abi Reyes RN Peripheral IV 09/09/14; 0615; 18 G; 09/09/14 0615 by 09/10/14 1125 by Left; Lower forearm; Lori Galeano RN Leivi ska, Doreen K, Chlorhexidine; RN Injectable; Tolerated well Urethral Catheter 09/09/14; 0812; No; 09/09/14 0812 by 09/09/14 1022 by Anesthesia; 16 fr Herson Rodriguez RN Albrecht, Patricia A, RN documented in this encounter Social History Tobacco [...] encounter OR Notes Anesthesia Postprocedure Evaluation - Andrew Narayan MD - 09/09/2014 12:50 PM CDT Anesthesia Post-Evaluation Note Patient: Andrew Pang Patient location: PACU Procedure(s) Performed: Procedure(s) with comments: OPTICAL TRACKING SYSTEM INSERTION DEEP BRAIN STIMULATION BILATERAL - BILATERAL SUBTHALMIC NUCLEUS DEEP BRAIN STIMULATOR Anesthesia type: MAC Post Op Diagnosis: * No post-op diagnosis entered * No value filed. Patient Condition Respiratory Function (RR / SpO2 / Airway Patency): Satisfactory Cardiac Function (HR / Rhythm / BP): Satisfactory Mental Status: Satisfactory. Able to fully participate in evaluation Temperature: Satisfactory Pain Control: Satisfactory PONV: None Beta-Ijeoma Therapy: None indicated Hydration Status: Satisfactory Last Vitals: Filed Vitals: 09/09/14 1140 09/09/14 1145 09/09/14 1150 BP: 126/68 125/68 Temp: 37 ??C (98.6 ??F) Resp: 15 15 SpO2: 96% 96% 95% Additional Comments: Anesthesia Preprocedure Evaluation - Andrew Narayan MD - 09/09/2014 6:54 AM CDT Anesthesia Evaluation . Pt has had prior anesthetic. ROS/MED HX ENT/Pulmonary: Comment: PFTs showed mild restrictive pattern (+)sleep apnea, uses CPAP , . . Neurologic: (+)Parkinson's disease Cardiovascular: Comment: Nl echo and stress test (+) Dyslipidemia, . : . . . :. . METS/Exercise Tolerance: Hematologic: Musculoskeletal: GI/Hepatic: (+) GERD Renal/Genitourinary: Endo: Psychiatric: Infectious Disease: Malignancy: Other: Physical Exam Normal systems: cardiovascular, pulmonary and dental Airway Mallampati: II TM distance: >3 FB Neck ROM: full Dental Cardiovascular Pulmonary Anesthesia Plan ASA Score: 3 . Plan for MAC - Routine analgesia and antiemetics to be used for post-operative care. Anesthetic plan, risks, benefits and alternatives discussed with: patient or sales representative supervisor. . History & Physical Review History and physical reviewed and following examination; no interval change. . Procedure: Procedure(s): OPTICAL TRACKING SYSTEM INSERTION DEEP BRAIN STIMULATION BILATERAL Preop diagnosis: PARKINSONS DISEASE No Known Allergies Past Medical History Diagnosis Date ??? Parkinson disease ? ? Hyperlipidemia LDL goal < 130 ??? Angina at rest ??? Sleep apnea Past Surgical History Procedure Laterality Date ??? Hernia repair age 11 ??? Discectomy cervical minimally invasive one level 2000 Prior to Admission medications Medication Sig Start Date End Date Taking? Authorizing Provider oxyCODONE-acetaminophen (PERCOCET) 5-325 MG per tablet Take 1-2 tablets by mouth every 4 hours as needed for moderate to severe pain 09/08/14 Yes Arline Hutson APRN CNP vitamin D (ERGOCALCIFEROL) 77449 UNIT capsule Take 1 capsule (50,000 Units) by mouth every 7 days 08/26/14 Yes Lurdes Thomas MD hydrochlorothiazide (HYDRODIURIL) 25 MG tablet Take 1 tablet (25 mg) by mouth daily 08/25/14 Yes Lurdes Thomas MD pravastatin (PRAVACHOL) 80 MG tablet Take 1 tablet (80 mg) by mouth daily 08/20/14 Yes Lurdes Thomas MD rotigotine (NEUPRO) 8 MG/24HR Place 1 patch onto the skin daily Yes Reported, Patient amantadine (SYMMETREL) 100 MG capsule Take 100 mg by mouth 2 times daily Yes Reported, Patient omeprazole 20 MG tablet Take 1 tablet (20 mg) by mouth daily Take 30-60 minutes before a meal. 06/11/14 Yes Lurdes Thomas MD citalopram (CELEXA) 10 MG tablet Take 10 mg by mouth daily. Yes Reported, Patient entacapone (COMTAN) 200 MG tablet Take 200 mg by mouth 4 times daily. Yes Reported, Patient carbidopa-levodopa (SINEMET) 25-100 MG per tablet Take 1 tablet by mouth 3 times daily. Yes Reported, Patient sildenafil (VIAGRA) 50 MG tablet Take 1 tablet by mouth daily as needed for erectile dysfunction. 10/15/10 Yes Lurdes Thomas MD carbidopa-levodopa (SINEMET CR) 50-200 MG per tablet Take by mouth 2 times daily. Pt unsure of dose 04/12/10 Yes Lurdes Thomas MD Current Facility-Administered Medications Ordered in Epic Medication Dose Route Frequency Last Rate Last Dose ??? ceFAZolin (ANCEF) intermittent infusion 2 g (pre-mix) 2 g Intravenous Pre-Op/Pre-procedure x 1 dose ??? ceFAZolin (ANCEF) 1 g vial to attach to NS 100 ml bag for ADULT or 50 ml bag for PEDS 1 g Intravenous See Admin Instructions ??? All prescription medications unless specified by a HOLD order should be taken with water on day of surgery according to the patient's normal schedule. Does not apply Continuous PRN ??? sodium chloride (PF) 0.9% PF flush 3 mL 3 mL Intravenous Q1H PRN ??? lactated ringers infusion 1,000 mL Intravenous Continuous 75 mL/hr at 09/09/14 0625 1,000 mL at 09/09/14 0625 No current Epic-ordered outpatient prescriptions on file. Wt Readings from Last 1 Encounters: 09/09/14 95.255 kg (210 lb) Temp Readings from Last 1 Encounters: 09/09/14 36.8 ??C (98.2 ??F) BP Readings from Last 6 Encounters: 09/09/14 139/85 09/09/14 139/85 09/08/14 152/84 08/25/14 120/70 08/11/14 124/68 07/17/14 124/81 Pulse Readings from Last 4 Encounters: 09/08/14 90 08/25/14 80 08/11/14 80 07/17/14 94 Resp Readings from Last 1 Encounters: 09/09/14 18 SpO2 Readings from Last 1 Encounters: 09/09/14 95% Recent Labs Lab Test 09/09/14 0610 08/25/14 [...] results for input(s): INR in the last 93714 hours. Invalid input(s): APTT RECENT LABS: ECG: NSR ECHO: CXR: documented in this encounter Miscellaneous Notes Anesthesia Care Transfer Note - Millicent Enciso APRN LEADERSHIP PROGRAM INTERN - 09/09/2014 10:58 AM CDT Anesthesia Care Transfer Note Patient: [...] Dose Rate Site ceFAZolin (ANCEF) intermittent Given 09/09/2014 9:54 AM CDT 1 g infusion 2 g (pre-mix) Routine, 2 g, Intravenous, PRE-OP/PRE-PROCEDURE, Starting on Mon09/09/14 at 0543, For 1 dose, Give first dose within 1 hour PRIOR to incision. If patient weight is greater than or equal to 120 kg change dose to 3 g., Indications: Perioperative Pharmacoprophylaxis, Pre-procedure Given 09/09/2014 7:54 AM CDT 2 g fentaNYL (SUBLIMAZE) injection Given 09/09/2014 9:47 AM CDT 50 mcg PRN, moderate to severe pain, Starting on Mon09/09/14 at 0947, Anesthesia Intra-op Given 09/09/2014 7:30 AM CDT 50 mcg hydrALAZINE (APRESOLINE) injection Given 09/09/2014 8:27 AM CDT 10 mg PRN, high blood pressure, Starting on Mon09/09/14 at 0729, Anesthesia Intra-op Given 09/09/2014 8:20 AM CDT 5 mg Given 09/09/2014 8:14 AM CDT 5 mg labetalol (NORMODYNE,TRANDATE) injection Given 09/09/2014 9:02 AM CDT 5 mg PRN, high blood pressure, Starting on Mon09/09/14 at 0856, Anesthesia Intra-op Given 09/09/2014 8:56 AM CDT 10 mg lactated ringers infusion New Bag 09/09/2014 10:20 AM CDT at 75-100 mL/hr, Intravenous, CONTINUOUS, UNLESS otherwise indicated., Pre-procedure, Starting on Mon09/09/14 at 0545, Until Mon09/09/14 at 1053 New Bag 09/09/2014 6:25 AM CDT 1,000 mLs 75 mL/hr niCARdipine 40 mg in 200 mL 0.9% Rate/Dose Change 09/09/2014 11:10 AM CDT 9 mL/hr NaCl (CARDENE) infusion CONTINUOUS PRN, Starting on Mon09/09/14 at 0844, Anesthesia Intra-op Rate/Dose Verify 09/09/2014 11:06 AM CDT 11 mL/hr Rate/Dose Change 09/09/2014 10:59 AM CDT 11 mg/hr 55 mL/hr ondansetron (ZOFRAN) injection Given 09/09/2014 7:29 AM CDT 4 mg PRN, nausea, vomiting, Administer over 2-5 Minutes, Starting on Mon09/09/14 at 0729, Anesthesia Intra-op propofol (DIPRIVAN) Restarted 09/09/2014 9:47 AM 110 mcg/kg/min 62.9 mL/hr injection 10 mg/mL vial CDT CONTINUOUS PRN, Starting on Mon09/09/14 at 0737, Anesthesia Intra-op Rate/Dose Change 09/09/2014 8:22 AM CDT 50 mcg/kg/min 28.6 mL/hr Rate/Dose Change 09/09/2014 8:15 AM CDT 110 mcg/kg/min 62.9 mL/hr propofol (DIPRIVAN) injection 10 mg/mL v ial Given 09/09/2014 9:54 AM CDT 30 mg PRN, Starting on Mon09/09/14 at 0745, Anesthesia Intra-op Given 09/09/2014 8:11 AM CDT 20 mg Given 09/09/2014 7:45 AM CDT 10 mg documented in this encounter Care Teams Cage Operator Relationship Specialty Start Date End Date Lurdes Thomas MD PCP - General Internal Medicine 06/11/14 12/16/20 documented as of this encounter
--- OUTSIDE RECORDS SUMMARY | 2021-12-28 12:16 | XMS_ITS | Encounter Summary ---
:1955 Author Organization [place] Address [address] [facility] [place] [address] Care Team Providers Name Role Phone Lurdes Thomas MD Primary Care Provider [phone] Reason for Visit Reason Comments Neurologic Problem Encounter Details Date Type Department Care Team Description 09/08/2014 Office Visit [facility] Arline Peñaloza S/Jana d eep brain [facility] MARISOL Del Real FACE MAN stimulator placement [place] [address] (Primary Dx) [address] [place], [place] [address] [address] [place] [address] Social History Tobacco Use Types Packs/Day [...] Sign Reading Time Taken Comments Blood Pressure 152/84 09/08/2014 9:54 AM CDT Pulse 90 09/08/2014 9:54 AM CDT Temperature 36.3 ??C (97.4 ??F) 09/08/2014 9:54 AM CDT Respiratory Rate 14 09/08/2014 9:54 AM CDT Oxygen Saturation 96% 09/08/2014 9:54 AM CDT Inhaled Oxygen Concentration - - Weight 93 kg (205 lb) 09/08/2014 9:54 AM CDT Height 185.4 cm (6' 1) 09/08/2014 9:54 AM CDT Body Mass Index 27.05 09/08/2014 9:54 AM CDT documented in this encounter Patient Instructions Patient InstructionsArline Hutson APRN CNP - 09/08/2014 10:13 AM CDT - No parkinson's related medications after 6pm tonight (Monday, September 09) - Remove patch (Neuopro) by 12 o'clock today (Monday, September 09). - May take Tylenol or Percocet for pain control. documented in this encounter Progress Notes Arline Hutson APRN CNP - 09/08/2014 11:05 AM CDT Neurosurgery Clinic Fiducial placement Visit: - Fiducial placement by Dr. Rowland, please see associated documentation for further procedure details. - Prescription provided for Percocet to treat fiducial placement pain this evening. - Patient provided with tour of facility and escorted to [facility] for CT scan check in. - Patient and denied questions regarding perioperative period. Arline Hutson 09/08/2014 11:10 AM documented in this encounter Nursing Notes Mahamed Martell NP - 09/08/2014 9:56 AM CDT Andrew Pang is a 59 year old male who presents for: Chief Complaint Patient presents with ??? Neurologic Problem Initial Vitals: BP 152/84 Pulse 90 Temp(Src) 97.4 ??F (36.3 ??C) (Oral) Resp 14 Ht 6' 1 (1.854 m) Wt 205 lb (92.987 kg) BMI 27.05 kg/m2 SpO2 96% Estimated body mass index is 27.05 kg/(m^2) as calculated from the following: Height as of this encounter: 6' 1 (1.854 m). Weight as of this encounter: 205 lb (92.987 kg).. Body surface area is 2.19 meters squared. BP completed using cuff size: regular No Pain (0) Do you feel safe in your environment? Yes Do you need any refills today? Yes Nursing Comments: Fudicial placement 10 mins nursing intake time Mahamed Martell Discharge plan: CT and DBS tomorrow 3 mins nursing discharge time --Nomi Martell MSN, ADULT BASIC EDUCATION TEACHER, FACE MAN-C signature documented in this encounter Plan of Treatment Not on filedocumented as of this encounter Visit Diagnoses Diagnosis S/P deep brain stimulator placement - Pr imary documented in this encounter Care Teams Box Strapper Relationship Specialty Start Date End Date Lurdes Thomas MD PCP - General Internal Medicine 06/11/14 12/16/20 documented as of this encounter
--- OUTSIDE RECORDS SUMMARY | 2021-12-28 12:16 | XMS_ITS | Encounter Summary ---
:1955 Author Organization [place] Address [address] [place] [address]. [place] [address] Care Team Providers Name Role Phone Lurdes Thomas MD Primary Care Provider Reason for Visit Reason Onset Date Comments Refill Request 08/20/2014 PRAVASTATIN 80MG Encounter Details Date Type Department Care Team Description 08/20/[address] [facility] Lurdes Rojas Refill Request [address] [facility] MD [place] (PRAVASTATIN 80MG) [place] [address] [facility] [phone] [place] [address] (Wo rk) Social History Tobacco Use [...] Telephone Encounter - Sole Cates RN - 08/20/2014 3:09 PM CDT Sent MyChart to patient with this information. Sole Cates, RN Telephone Encounter - Lurdes Thomas MD - 08/20/2014 1:26 PM CDT Needs to check lipids in August. Was not taking medication. Will fill for 90 days only. Lurdes Thomas MD Internal Medicine/Pediatrics Telephone Encounter - Cindy Sal - 08/20/2014 1:10 PM CDT LIZETH 08-11-14 LDL Cholesterol Calculated Date Value Ref Range Status 09/20/2012 95 0 - 129 mg/dL Final LDL Cholesterol is the primary guide to therapy: LDL-cholesterol goal in high risk patients is <100 mg/dL and in very high risk patients is <70 mg/dL. Do you want to fill this now? Cindy Sal RN Telephone Encounter - Marie Alvarez RN - 08/20/2014 1:10 PM CDT Unable to refill PSO, no lipid done since 09/20/12 Last Seen: 08/11/[address] Thomas Recent Labs Lab Test 09/20/12 0817 07/27/11 1035 CHOL 178 236* HDL 66 60 LDL 95 152* TRIG 83 121 CHOLHDLRATIO 2.7 3.9 ALT 20 06/11/2014 Rtc instructions: none given Marie Alvarez RN. Telephone Encounter - Julisa Hayden - 08/20/2014 12:03 PM CDT Refill request for: PRAVASTATIN 80 mg Last prescribed by provider: Date: 09/20/2012 Quantity 90 w/ 3 refills Last filled through pharmacy: Date: NA Pharmacy Comments: SAMINA Haydne RT(R) documented in this encounter Plan of Treatment Not on filedocumented as of this encounter Visit Diagnoses Diagnosis Hyperlipidemia LDL goal < 130 - Primary Other and unspecified hyperlipidemia documented in this encounter Care Teams Torch Cutter Relationship Specialty Start Date End Date Lurdes Thomas MD PCP - General Internal Medicine 06/11/14 12/16/20 documented as of this encounter
--- OUTSIDE RECORDS SUMMARY | 2021-12-28 12:16 | XMS_ITS | Encounter Summary ---
:1955 Author Organization [place] Address [address] [place] [address]. [place] [address] Care Team Providers Name Role Phone Lurdes Thomas MD Primary Care Provider [phone] Reason for Visit (Routine) - Closed Specialty Diagnoses / Procedures Referred By Contact Refer red To Contact Respiratory Therapy Diagnoses Hgb 15.4 drawn on 06/11/14 Rh Respiratory Ther Procedures PULMONARY FUNCTION TEST [address] [place] [address] Phone: Referral ID Status Reason Start Date Expiration Date Visits Requ ested Visits Authorized [id number] Closed 07/04/2014 07/04/2015 1 1 Encounter Details Date Type Department Care Team Description 07/08/2014 Hospital Encounter [facility] Lurdes Riosinson disease (H); Tere Laughlin MD SOB (shortness of breath) Therapy [facility] [address] [place], [place] [address] [place] [address] [phone] [place] [address] Social History Tobacco Use Types [...] Take 1 capsule 8 capsule 0 06/1208/01/2014 73273 UNIT (50,000 Units) by capsuleIndications: mouth every [...] documented as of this encounter Progress Notes Shemar Hoang, RT - 07/08/2014 12:38 PM CST PFT Note: Pt completed pulmonary function testing with DLCO. Good Pt effort and cooperation. Spirometry Meets all ATS-ERS recommendations. Plethysmography All plethysmographic measurements met ATS-ERS recommendations. DLCO Meets all ATS-ERS recommendations. DLCO is an average of 2 manuvers. Predicted DLCO is corrected for a Hb of 15.4 drawn 06/11/14. July 08, 2014.12:39 PM Shemar Hoang T PILE HAMMER OPERATOR documented in this encounter Procedure Notes Juice Chanel MD - 07/09/2014 1:16 PM CSTAssociated Order(s): PULMONARY FUNCTION TEST Please see medical chart for graphs and statistics related to this report. REFERRING PHYSICIAN: Deidre Pang ASSISTED SALES REPRESENTATIVE: Shemar Hoang DIAGNOSIS: SOB, Parkinson's disease HEIGHT: 73 WEIGHT: 212 lbs DYSPNEA: walking less than 100 yards COUGH: non-productive WHEEZE: rare TOBACCO PROD: never smoked POST-TEST COMMENTS: Patient completed pulmonary function testing with DLCO. Good patient effort and cooperation. All tests meet ATS-ERS recommendations. DLCO is an average of 2 maneuvers. Predicted DLCO is corrected for a Hb of 15.4 drawn 06/11/2014. INTERPRETATION: 1. Mild restriction 2. No obstruction 3. Normal diffusion capacity JUICE CHANEL MD MT: Name: DEIDRE PANG Account: [id number] : 1955 Procedure Date: 07/08/2014 Document: [id number] cc: Lurdes Thomas MD documented in this encounter Plan of Treatment Pending Results Name Type Priority Associated Diagnoses Date/Ti me PULMONARY FUNCTION TEST PFT Routine Parkinso n disease (H) 07/08/2014 11:58 AM SHEET PILE HAMMER OPERATOR PROCEDURE SOB (shortness of breath) documented as of this encounter Procedures Procedure Name Priority Date/Time Associated Diagnosis Comme nts PFT GENERAL LAB 07/28/2014 1:58 PM Result s for this TESTING CDT procedure are i n the results section. PFT GENERAL LAB Routine 07/08/2014 11:58 AM Parkinson disease TESTING SHEET PILE HAMMER OPERATOR (H) SOB (shortness of breath) PULMONARY FUNCTION 07/08/2014 12:00 AM TEST - HIM SCAN SHEET PILE HAMMER OPERATOR documented in this encounter Results PULMONARY FUNCTION TEST (07/28/2014 1:58 PM CDT) Transcriptions Juice Chanel MD - 07/09/2014 1:16 PM CST Please see medical chart for graphs and statistics related to this report. REFERRING PHYSICIAN: Deidre Pang ASSISTED SALES REPRESENTATIVE: Shemar Hoang DIAGNOSIS: SOB, Parkinson's disease HEIGHT: 73 WEIGHT: 212 lbs DYSPNEA: walking less than 100 yards COU GH: non-productive WHEEZE: rare TOBACCO PROD: never smoked POST-TEST COMMENTS: Patient completed pu lmonary function testing with DLCO. Good patient effort and cooperation. All tests meet ATS-ERS recommendations. DLCO is an average of 2 maneuvers. Predicted DLCO is corrected for a Hb of 15.4 drawn 015. INTERPRETATION: 1. Mild restriction 2. No obstruction 3. Normal diffusion capacity JUICE CHANEL MD MT: Name: DEIDRE PANG Account: [id number] : 1955 Procedure Date: 07/08/19 Document: [id number] cc: Lurdes Thomas MD Juice Chanel MD PFT ORDERABLES PULMONARY FUNCTION TEST - HIM SCAN (07/08/2014 12:00 AM SHEET PILE HAMMER OPERATOR) Specimen (Source) Anatomical Location Collection Method / Collectio n Time Received Time / Laterality Volume 07/08/2014 Narrative This result has an attachment that is no t available. Provider Scan PFT ORDERABLES documented in this encounter Visit Diagnoses Diagnosis Parkinson disease (H) Paralysis agitans SOB (shortness of breath) Shortness of breath documented in this encounter Care Teams Clinical Mental Health Counselor Relationship Specialty Start Date End Date Lurdes Thomas MD PCP - General Internal Medicine 06/11/14 12/16/20 documented as of this encounter
--- OUTSIDE RECORDS SUMMARY | 2021-12-28 12:16 | XMS_ITS | Encounter Summary ---
:1955 Author Organization [place] Address [address] [facility] [place] [address] Care Team Providers Name Role Phone Lurdes Thomas MD Primary Care Provider [phone] Encounter Details Date Type Department Care Team Description 06/18/2014 Medical Correspondence [facility] Scan, GOALS AND CONCERNS [facility], Non-Provider Health Info Mgmt [facility] [address] [place] [address] Social History Tobacco Use Types [...] on filedocumented in this encounter Care Teams Cadmium Liquor Maker Relationship Specialty Start Date End Date Lurdes Thomas MD PCP - General Internal Medicine 06/11/14 12/16/20 documented as of this encounter
--- OUTSIDE RECORDS SUMMARY | 2021-12-28 12:16 | XMS_ITS | Encounter Summary ---
:1955 Author Organization [place] Address [address] [place] [address]. [place] [address] Care Team Providers Name Role Phone Oli Thomas MD Primary Care Provider [phone] Reason for Visit Reason Comments Breathing Problem Encounter Details Date Type Department Care Team Description 06/11/2014 Office Visit [facility] Oli Thomas SOB (shor tness of breath) (Primary Dx); Uzair Laughlin MD Fatigue; [address] [employer] Vitamin D deficiency disease ; [place] [id number] [place] Lower extremity edema; [phone] [facility] GERD (ghazala roesophageal reflux disease) [place], [place] [address] Social History Tobacco Use Types Packs/Day [...] Sign Reading Time Taken Comments Blood Pressure 114/70 06/11/2014 8:04 AM ENGINEERING ASSISTANT Pulse 99 06/11/2014 8:04 AM ENGINEERING ASSISTANT Temperature 36.9 ??C (98.5 ??F) 06/11/2014 8:04 AM ENGINEERING ASSISTANT Respiratory Rate - - Oxygen Saturation 94% 06/11/2014 8:04 AM ENGINEERING ASSISTANT Inhaled Oxygen Concentration - - Weight 95.6 kg (210 lb 12.8 oz) 06/11/2014 8:04 AM ENGINEERING ASSISTANT Height 186.7 cm (6' 1.5) 06/11/2014 8:04 AM ENGINEERING ASSISTANT Body Mass Index 27.43 06/11/2014 8:04 AM ENGINEERING ASSISTANT documented in this encounter Patient Instructions Patient InstructionsSerumOli MD - 06/11/2014 9:03 AM ENGINEERING ASSISTANT 1. Labs today: liver function, kidney function, blood counts, vitamin D levels 2. You will be contacted to set up the stress test and echocardiogram (ultrasound) of the heart NEERING ASSISTANT documented in this encounter Progress Notes Oli Thomas MD - 06/11/2014 8:07 AM CST SUBJECTIVE: Deidre Pang is a 59 year old male who presents to clinic today for the following health issues: Short of breath ?? Duration: 1 year ?? Description (location/character/radiation): becomes SOB easily with slight exertion ?? Intensity: moderate ?? Accompanying signs and symptoms: L/E swelling, frequent chest pain when lying down ?? History (similar episodes/previous evaluation): None ?? Precipitating or alleviating factors: None ?? Therapies tried and outcome: None Patient with history of Parkinson's. Has been progressive. Medications changed over the last year. Plans to get deep brain stimulation surgery - likely in July. [facility] at [facility] last year. Reviewed labs in care everywhere. Has become gradually more and more SOB with exertion over last year. More fatigued as well. Had difficulty with hiking and biking that he was able to tolerate in the past. Some chest pressure/pain off and on for about 10 minutes when lies down to go to bed. Doesn't wake from night. Doesn't happened with exertion. Has been having more heartburn at night as well. Taking omeprazole 4-5 times a week. Helps with the symptoms. Has had swelling right > left for several days. No previous injury. No pain.No history of smoking. Family history of heart disease in mid-late 60's in both parents who requiredCABG at that time. Vitamin D deficiency: levels found to be 14 last year. Is taking daily supplement, but not taking every day. HLP: taking medication daily. No side effects. Last cholesterol checked in 01/2014 and was at goal. Problem list and histories reviewed & adjusted, as indicated. Additional history: as documented ROS: A 8 point review of systems was obtained and was otherwise negative Problem list, Medication list, Allergies, and Medical/Social/Surgical histories reviewed in [facility] andupdated as appropriate. OBJECTIVE: BP 114/70 Pulse 99 Temp(Src) 98.5 ??F (36.9 ??C) (Oral) Ht 6' 1.5 (1.867 m) Wt 210 lb 12.8 oz (95.618 kg) BMI 27.43 kg/m2 SpO2 94% General Appearance: healthy, alert and no distress Eyes: no discharge, erythema. Normal pupils. Neck: Supple. No adenopathy, no asymmetry, masses, or scars and thyroid normal to palpation Respiratory: lungs clear to auscultation - no rales, rhonchi or wheezes. Cardiovascular: regular rate and rhythm, normal S1 S2, no S3 or S4 and no murmur, click or rub. 1+ peripheral edema on right to mid-calf and to ankle on left. Skin: no rashes or lesions. Well perfused and normal turgor. Neurological: freezes up when first stands, then has stiff gait Diagnostic test results: Results for orders placed in visit on 06/11/14 (from the past 24 hour(s)) CBC WITH PLATELETS DIFFERENTIAL Result Value Ref Range WBC 4.8 4.0 - 11.0 10e9/L RBC Count 5.06 4.4 - 5.9 10e12/L Hemoglobin 15.4 13.3 - 17.7 g/dL Hematocrit 46.8 40.0 - 53.0 % MCV 93 78 - 100 fl MCH 30.4 26.5 - 33.0 pg MCHC 32.9 31.5 - 36.5 g/dL RDW 12.7 10.0 - 15.0 % Platelet Count 205 150 - 450 10e9/L Diff Method Automated Method % Neutrophils 55.7 % Lymphocytes 32.6 % Monocytes 9.8 % Eosinophils 1.5 % Basophils 0.4 Absolute Neutrophil 2.7 1.6 - 8.3 10e9/L Absolute Lymphocytes 1.6 0.8 - 5.3 10e9/L Absolute Monoctyes 0.5 0.0 - 1.3 10e9/L Absolute Eosinophils 0.1 0.0 - 0.7 10e9/L Absolute Basophils 0.0 0.0 - 0.2 10e9/L EKG: normal sinus rhythm, no QT changes or qwaves CXR: normal, although heart size looks at upper limits of normal ASSESSMENT/PLAN: (786.05) SOB (shortness of breath) (primary encounter diagnosis) Comment: concern that SOB with exertion may be cardiac, especially given strong family history. O2 sat a little lower than normal as well. No primary lung disease evident on CXR. Could also be partially related to Parkinson's disease Plan: EKG 12-lead complete w/read - Clinics, XR Chest 2 Views, Echocardiogram, NM Lexiscan stress test, Comprehensive metabolic panel, CBC with platelets differential - will get stress test and echo given heart size looking upper limits of normal and peripheral edema - cmp pending - if above normal, than would recommend spirometry with DLCO (780.79) Fatigue Comment: CBC normal Plan: Comprehensive metabolic panel, CBC with platelets differential (268.9) Vitamin D deficiency disease Comment: recheck levels, suspect needs higher dosing Plan: Vitamin D Deficiency (782.3) Lower extremity edema Comment: has had off and on in the past, but never for this long. Need to r/o cardiac causes. Kidneydysfunction and hepatic dysfunction less likely. More likely related to venous insufficiency Plan: Comprehensive metabolic panel - check CMP and echo - if both normal, will start on low dose diuretic and watch BP closely Follow up with Provider - 1 month Oli Thomas [facility] NEERING ASSISTANT documented in this encounter Nursing Notes Tamy Leahy LPN - 06/11/2014 8:06 AM CST Chief Complaint Patient presents with ??? Breathing Problem Initial BP 114/70 Pulse 99 Temp(Src) 98.5 ??F (36.9 ??C) (Oral) Ht 6' 1.5 (1.867 m) Wt 210 lb 12.8 oz (95.618 kg) BMI 27.43 kg/m2 SpO2 94% Estimated body mass index is 27.43 kg/(m^2) as calculated from the following: Height as of this encounter: 6' 1.5 (1.867 m). Weight as of this encounter: 210 lb 12.8 oz (95.618 kg). BP completed using cuff size: large Tamy Leahy LPN NEERING ASSISTANT documented in this encounter Miscellaneous Notes Addendum Note - Oli Thomas MD - 06/12/2014 4:46 PM ENGINEERING ASSISTANT Addended by: OLI THOMAS on: 06/12/2014 04:46 PM Modules accepted: Orders NEERING ASSISTANT documented in this encounter Plan of Treatment Not on filedocumented as of this encounter Procedures Procedure Name Priority Date/Time Associated Comments Diagnosis CBC WITH PLATELETS & Routine 06/11/2014 9:05 AM SOB (shortness of Results for this DIFFERENTIAL ENGINEERING ASSISTANT breath) procedure are in Fatigue the results section. VITAMIN D DEFICIENCY Routine 06/11/2014 9:05 AM Vitamin D R esults for this SCREENING ENGINEERING ASSISTANT deficiency disease procedure are in the results section. COMPREHENSIVE Routine 06/11/2014 9:05 AM SOB (shortness of Res ults for this METABOLIC PANEL ENGINEERING ASSISTANT breath) procedure are in Fatigue the results Lower extremity section. edema EKG 12-LEAD COMPLETE Routine 06/11/2014 SOB (shortness of Re sults for this W/READ - CLINICS breath) procedure a re in the results section. documented in this encounter Results NM Lexiscan stress test (06/25/2014 1:06 PM ENGINEERING ASSISTANT) Anatomical Region Laterality Modality Chest Nuclear Medicine Specimen (Source) Anatomical Location Collection Method / Collectio n Time Received Time / Laterality Volume Narrative 06/26/2014 10:06 AM ENGINEERING ASSISTANT GATED MYOCARDIAL PERFUSION SCINTIGRAPHY WITH INTRAVENOUS PHARMACOLOGIC [...] calculated to be 62%. TID was absent. KATARINA BUNN MD Procedure Note Katarina Bunn MD - 06/26/2014For matting of this [...] calculated to be 62%. TID was absent. KATARINA BUNN MD Oli Thomas MD IMG NM ORDERABLES (ABNORMAL) Vitamin D Deficiency (06/11/2014 9:05 AM ENGINEERING ASSISTANT) P athologist Signature Vitamin D 21 (L) 30 - 75 [facility] Deficiency ug/L [place] [facility] screening [facility] Comment: Season, race, dietary intake, and treatm ent affect the concentration of 68-phtlpwp-Ouasdhi D. Values may decrea se during winter months and increase during summer months. Values less than 30 ug/L may indicate Vitamin D deficiency. Vitamin D determiniation is routinely p erformed by an immunoassay specific for 25 hydroxyvitamin D3. ??If an individua l is on vitamin D2 (ergocalciferol) supplementation, please specify 25 [place] v itamin D2 and D3 level determination by LCMSMS test [id number]. Specimen Anatomical Collection Method Collection Time Receive d Time (Source) Location / / Volume Laterality Blood specimen 06/11/2014 9:05 AM 015 9:07 (specimen) ENGINEERING ASSISTANT AM ENGINEERING ASSISTANT Oli Thomas MD LAB - BLOOD ORDERABLES Performing Organization Address City/State/ZIP Code Phon e Number [address] [address] [facility] CBC with platelets differential (06/11/2014 9:05 AM ENGINEERING ASSISTANT) [facility] gist Method Time Signature WBC 4.8 4.0 - [facility] 11.0 [facility] 10e9/L [facility] RBC Count 5.06 4.4 - 5.9 [facility] 10e12/L [facility] Hemoglobin 15.4 13.3 - [facility] 17.7 g/dL [facility] Hematocrit 46.8 40.0 - [facility] 53.0 % [facility] MCV 93 78 - 100 [place] [facility] MCH 30.4 26.5 - [facility] 33.0 pg [facility] MCHC 32.9 31.5 - [facility] 36.5 g/dL [facility] RDW 12.7 10.0 - [facility] 15.0 % [facility] Platelet Count 205 150 - 450 [facility] 10e9/L [facility] Diff Method Automated [place] Method [facility] % Neutrophils 55.7 % [place] [facility] % Lymphocytes 32.6 % [place] [facility] % Monocytes 9.8 % [place] [facility] % Eosinophils 1.5 % [place] [facility] % Basophils 0.4 % [place] [facility] Absolute 2.7 1.6 - 8.3 [facility] Neutrophil 10e9/L [facility] Absolute 1.6 0.8 - 5.3 [facility] Lymphocytes 10e9/L [facility] Absolute 0.5 0.0 - 1.3 [facility] Monocytes 10e9/L [facility] Absolute 0.1 0.0 - 0.7 [facility] Eosinophils 10e9/L [facility] Absolute 0.0 0.0 - 0.2 [facility] Basophils 10e9/L [facility] Specimen Anatomical Collection Method Collection Time Receive d Time (Source) Location / / Volume Laterality Blood specimen 06/11/2014 9:05 AM 015 9:07 (specimen) ENGINEERING ASSISTANT AM ENGINEERING ASSISTANT Oli Thomas MD LAB - BLOOD ORDERABLES Performing Organization Address City/State/ZIP Code Phon e Number [facility] [address] [place] [address] (ABNORMAL) Comprehensive metabolic panel (06/11/2014 9:05 AM ENGINEERING ASSISTANT) Analysis Performed At [facility] logis Time Signature Sodium 139 133 - 144 [place] mmol/L [facility] Potassium 4.7 3.4 - 5.3 [place] mmol/L [facility] Chloride 104 94 - 109 [place] mmol/L [facility] Carbon Dioxide 31 20 - 32 [place] mmol/L [facility] Anion Gap 4 3 - 14 [place] mmol/L [facility] Glucose 102 (H) 70 - 99 [place] mg/dL [facility] Comment: Effective 12/18/2013, the reference range for this assay has changed to reflect new instrumentation/methodology. Urea Nitrogen 21 7 - 30 mg/dL [place] [facility] I[facility] Comment: Effective 12/18/2013, the reference range for this assay has changed to reflect new instrumentation/methodology. Creatinine 0.82 0.66 - 1.25 [facility] mg/dL [facility] GFR Estimate >90 >60 mL/min/1.7m2 [facility] Non GFR Calc [facility] GFR Estimate If Black >90 >60 mL/min/1.7m2 [facility] GFR Calc [facility] Calcium 9.1 8.5 - 10.1 mg/dL [place] [facility] Comment: Effective 12/18/2013, the reference range for this assay has changed to reflect new instrumentation/methodology. Bilirubin Total 0.6 0.2 - 1.3 mg/dL [facility] Albumin 4.1 3.4 - 5.0 g/dL [facility] Protein Total 7.5 6.8 - 8.8 g/dL [place] [facility] Alkaline Phosphatase 106 40 - 150 U/L [facility] ALT 20 0 - 70 U/L [facility] AST 37 0 - 45 U/L [facility] Specimen Anatomical Collection Method Collection Time Receive d Time (Source) Location / / Volume Laterality Blood specimen 06/11/2014 9:05 AM 015 9:07 (specimen) ENGINEERING ASSISTANT AM ENGINEERING ASSISTANT Oli Thomas MD LAB - BLOOD ORDERABLES Performing Organization Address City/State/ZIP Code Phon e Number [facility] [address] [place] [address] XR Chest 2 Views (06/11/2014 8:52 AM ENGINEERING ASSISTANT) Anatomical Region Laterality Modality Chest Computed Radiography Specimen (Source) Anatomical Location Collection Method / Collectio n Time Received Time / Laterality Volume Impressions 06/11/2014 9:24 AM ENGINEERING ASSISTANT IMPRESSION: ??Negative. CYNTHIA PACE MD Narrative 06/11/2014 9:24 AM ENGINEERING ASSISTANT XR CHEST 2 VW ??06/11/2014 8:52 AM HISTORY: ??Shortness of breath. COMPARISON: ??None. Procedure Note Cynthia Pace MD - 5 XR CHEST 2 VW 06/11/2014 8:52 AM HISTORY: Shortness of breath. COMPARISON: None. IMPRESSION IMPRESSION: Negative. CYNTHIA PACE MD Oli Thomas MD IMG DIAGNOSTIC IMAGING ORDER HECTOR EKG 12-lead complete w/read - Clinics (06/11/2014) Narrative This result has an attachment that is no t available. Oli Thomas MD ECG ORDERABLES documented in this encounter Visit Diagnoses Diagnosis SOB (shortness of breath) - Primary Shortness of breath Fatigue Other malaise and fatigue Vitamin D deficiency disease Unspecified vitamin D deficiency Lower extremity edema Edema GERD (gastroesophageal reflux disease) Esophageal reflux SOB (shortness of breath) Shortness of breath SOB (shortness of breath) Shortness of breath documented in this encounter Care Teams Community Service Manager Relationship Specialty Start Date End Date Oli Thomas MD PCP - General Internal Medicine 06/11/14 12/16/20 documented as of this encounter
--- OUTSIDE RECORDS SUMMARY | 2021-12-28 12:16 | XMS_ITS | Encounter Summary ---
:1955 Author Organization [place] Address [address] [place] [address]. [place] [address] Care Team Providers Name Role Phone Lurdes Thomas MD Primary Care Provider [phone] Reason for Visit Reason Comments Pre-Op Exam Encounter Details Date Type Department Care Team Description 08/25/2014 Office Visit [facility] Lurdes Thomasop gen eral physical exam (Primary Dx); Uzair Laughlin MD Parkinson disease (H); [address] [employer] Bilateral leg edema; [place] [phone] [place] Leg swelling; [phone] [address] [facility] Vitamin D deficiency disease [address] [place], [place] [address] Social History Tobacco Use [...] Sign Reading Time Taken Comments Blood Pressure 120/70 08/25/2014 12:41 PM CDT Pulse 80 08/25/2014 12:41 PM CDT Temperature 36 ??C (96.8 ??F) 08/25/2014 12:41 PM CDT Respiratory Rate - - Oxygen Saturation - - Inhaled Oxygen Concentration - - Weight 98.9 kg (218 lb) 08/25/2014 12:41 PM CDT Height 185.4 cm (6' 1) 08/25/2014 12:41 PM CDT Body Mass Index 28.76 08/25/2014 12:41 PM CDT documented in this encounter Patient Instructions Patient InstructionsTamy Leahy LPN - 08/25/2014 12:38 PM CDT Before Your Surgery ??? Call [...] ??? If you take prescribed drugs: take citalopram, hydrochlorothiazide on morning of surgery - also take omeprazole if need it with a small sip of water ??? Eating and drinking prior to surgery: [...] and have clean sheets on your bed. ??? Check electrolytes and kidney function ??? No aspirin, naproxen, ibuprofen for 10 days prior, tylenol is ok if you need something documented in this encounter Progress Notes Lurdes Thomas MD - 08/25/2014 12:38 PM CDT [address] [address] Dept: [phone] PRE-OP EVALUATION: Today's date: 08/25/2014 Andrew Pang (: 1955) presents for pre-operative evaluation assessment as requested by . He requires evaluation and anesthesia risk assessment prior to undergoing surgery/procedurefor treatment of Parkinson's . Proposed procedure: Deep brain stimulator implant Date of Surgery/ Procedure: 09/09& Time of Surgery/ Procedure: 529 Hospital/Surgical Facility: [facility] Primary Physician: Lurdes Thomas Type of Anesthesia [...] cardiovascular risks for perioperative complications such as (CA, PE, VFib and 3?? AV Block): No [...] encounter Nursing Notes Tamy Leahy LPN - 08/25/2014 12:43 PM CDT Chief Complaint Patient presents with ??? Pre-Op Exam Initial BP 120/70 Pulse 80 Temp(Src) 96.8 ??F (36 ??C) (Tympanic) Ht 6' 1 (1.854 m) Wt 218 lb (98.884 kg) BMI 28.77 kg/m2 Estimated body mass index is 28.77 kg/(m^2) as calculated from the following: Height as of this encounter: 6' 1 (1.854 m). Weight as of this encounter: 218 lb (98.884 kg). BP completed using cuff size: large Tamy Leahy LPN documented in this encounter Miscellaneous Notes Addendum Note - Lurdes Thomas MD - 08/26/2014 4:45 PM CDT Addended by: LURDES HTOMAS on: 08/26/2014 04:45 PM Modules accepted: Orders, Medications Addendum Note - Lurdes Thomas MD - 08/26/2014 4:42 PM CDT Addended by: LURDES THOMAS on: 08/26/2014 04:42 PM Modules accepted: Orders documented in this encounter Plan of Treatment Not on filedocumented as of this encounter Procedures Procedure Name Priority Date/Time Associated Comments Diagnosis VITAMIN D DEFICIENCY Routine 08/25/2014 1:08 PM Vitamin D R esults for this SCREENING CDT deficiency disease procedure are in the results section. BASIC METABOLIC Routine 08/25/2014 1:08 PM Bilateral leg edema Results for this PANEL CDT procedure are i n the results section. documented in this encounter Results (ABNORMAL) Vitamin D Deficiency (08/25/2014 1:08 PM CDT) P athologist Signature Vitamin D 25 (L) 30 - 75 [facility] ug/L [place] [facility] Comment: Season, race, dietary intake, and treatm ent affect the concentration of 71-yfeipmf-Sbujiet D. Values may decrea se during winter [...] Location / / Volume Laterality Blood specimen 08/25/2014 1:08 PM 015 1:09 (specimen) CDT PM CDT Lurdes Thomas MD LAB - BLOOD ORDERABLES Performing Organization Address City/State/ZIP Code Phon e Number [facility] [address] [place] [address] [facility] (ABNORMAL) Basic metabolic panel (08/25/2014 1:08 PM CDT) Analysis Performed At [facility] logist Time Signature Sodium 137 133 - 144 [place] mmol/L [facility] Potassium 3.5 3.4 - 5.3 [place] mmol/L [facility] Chloride 100 94 - 109 [place] mmol/L [facility] Carbon Dioxide 28 20 - 32 [place] mmol/L [facility] Anion Gap 9 3 - 14 [place] mmol/L [facility] Glucose 132 (H) 70 - 99 [place] mg/dL [facility] Comment: Effective 12/18/2013, the reference range for this assay has changed to reflect new instrumentation/methodology. Urea Nitrogen 18 7 - 30 mg/dL [facility] Comment: Effective 12/18/2013, the reference range for this assay has changed to reflect new instrumentation/methodology. Creatinine 0.77 0.66 - 1.25 [facility] mg/dL [facility] GFR Estimate >90 >60 mL/min/1.7m2 [facility] Non GFR Calc [facility] GFR Estimate If Black >90 >60 mL/min/1.7m2 [facility] GFR Calc [facility] Calcium 9.3 8.5 - 10.1 mg/dL [facility] Comment: Effective 12/18/2013, the reference range for this assay has changed to reflect new instrumentation/methodology. Specimen Anatomical Collection Method Collection Time Receive d Time (Source) Location / / Volume Laterality Blood specimen 08/25/2014 1:08 PM 015 1:09 (specimen) CDT PM CDT Lurdes Thomas MD LAB - BLOOD ORDERABLES Performing Organization Address City/State/ZIP Code Phon e Number [facility] [address] [place] [address] documented in this encounter Visit Diagnoses Diagnosis Preop general physical exam - Primary Other specified pre-operative examinatio n Parkinson disease (H) Paralysis agitans Bilateral leg edema Edema Leg swelling Swelling of limb Vitamin D deficiency disease Unspecified vitamin D deficiency documented in this encounter Care Teams Road Test Examiner Relationship Specialty Start Date End Date Lurdes Thomas MD PCP - General Internal Medicine 06/11/14 12/16/20 documented as of this encounter
--- OUTSIDE RECORDS SUMMARY | 2021-12-28 12:16 | XMS_ITS | Encounter Summary ---
:1955 Author Organization [place] Address [address] [place] [address]. [place] [address] Care Team Providers Name Role Phone Lurdes Thomas MD Primary Care Provider [phone] Encounter Details Date Type Department Care Team Description 06/11/2014 Radiant Appointment [facility] Lurdes Thomas (shortsharda of Uzair Laughlin MD breath) [address] [employer] [facility] [id number] [address] [phone] [place] [address] Social History Tobacco Use Types [...] Priority Date/Time Associated Diagnosis Comme nts XR CHEST 2 VW Routine 06/11/2014 8:52 AM SOB (shortness of Res ults for this ETL SOFTWARE ENGINEER breath) procedure are i n the results section . documented in this encounter Results XR Chest 2 Views (06/11/2014 8:52 AM ETL SOFTWARE ENGINEER) Anatomical Region Laterality Modality Chest Computed Radiography Specimen (Source) Anatomical Location Collection Method / Collectio n Time Received Time / Laterality Volume Impressions 06/11/2014 9:24 AM ETL SOFTWARE ENGINEER IMPRESSION: ??Negative. APOLONIA PACE MD Narrative 06/11/2014 9:24 AM ETL SOFTWARE ENGINEER XR CHEST 2 VW ??06/11/2014 8:52 AM HISTORY: ??Shortness of breath. COMPARISON: ??None. Procedure Note Apolonia Pace MD - 5 XR CHEST 2 VW 06/11/2014 8:52 AM HISTORY: Shortness of breath. COMPARISON: None. IMPRESSION IMPRESSION: Negative. APOLONIA PACE MD Lurdes Thomas MD IMG DIAGNOSTIC IMAGING ORDER HECTOR documented in this encounter Visit Diagnoses Diagnosis SOB (shortness of breath) Shortness of breath documented in this encounter Care Teams Hearing Aid Mechanic Relationship Specialty Start Date End Date Lurdes Thomas MD PCP - General Internal Medicine 06/11/14 12/16/20 documented as of this encounter
--- OUTSIDE RECORDS SUMMARY | 2021-12-28 12:17 | XMS_ITS | Encounter Summary ---
:1955 Author Organization [place] Address [address] [place] [address]. [place] [address] Care Team Providers Name Role Phone Lurdes Thomas MD Primary Care Provider [phone] Reason for Visit Reason Comments Physical Encounter Details Date Type Department Care Team Description 10/15/2010 Office Visit [facility] Lurdes Thomas Routine g eneral medical examination at a health care facility (Primary Dx); Uzair Laughlin MD Restless leg syndrome; [address] [facility] Hyperlipidemia LDL goal < 13 0; [place] [address] [facility] Erectile dysfunction; [phone] [facility] Parkinson disease (H); RD Screening for colon cancer; [place], [place] Screening for p rostate cancer; [address] Screening for diabetes mellitus Social History Tobacco Use Types Packs/Day Years Used Date Never Smoker Alcohol Use Standard Drinks/Week Comments Yes 0 [...] Sign Reading Time Taken Comments Blood Pressure 118/72 10/15/2010 8:00 AM CDT Pulse 68 10/15/2010 8:00 AM CDT Temperature - - Respiratory Rate - - Oxygen Saturation - - Inhaled Oxygen Concentration - - Weight 85.7 kg (188 lb 14.4 oz) 10/15/2010 8:00 AM CDT Height 186.7 cm (6' 1.5) 10/15/2010 8:00 AM CDT Body Mass Index 24.58 10/15/2010 8:00 AM CDT documented in this encounter Patient Instructions Patient InstructionsJoLurdes garcia - 10/15/2010 8:32 AM CDT 1. Labs today - cholesterol, diabetes screen, electrolytes, liver function, kidney function and ferritin (iron test). 2. If ferritin less than 50, may because some of you restless leg symptoms 3. Will either change cholesterol medication to pravastatin or rosuvastatin depending on cholesterollevesl. 4. Stool test to look for blood 5. Let me know if you decide to do the colonoscopy and we will order it for you documented in this encounter Progress Notes Lurdes Laughlin - 10/15/2010 8:00 AM CDT CC: Andrew Pang is an 55 year old male who presents for preventative health visit. Besides routine health maintenance, he would like to discuss discontinuing Simvastatin and switchingto an alternative medication. Healthy Habits: Do you get at least three servings of calcium containing foods daily (dairy, green leafy vegetables,etc.)? Pt is Pescaterian and takes a supplement Outside of work or daily activities, how many days per week do you exercise for 30 minutes or longer? 3 Estimated Body mass index is 24.58 kg/(m^2) as calculated from the following: Height as of this encounter: 6' 1.5(1.867 m). Weight as of this encounter: 188 lb 14.4 oz(85.684 kg). Have you had an eye exam in the past two years? no Do you see a dentist twice per year? yes Staff Signature Carrie Briggs M.A. PHQ-2 Over the last two weeks- Have you been bothered by little interest or pleasure in doing things? No Over the last two weeks- Have you been feeling down, depressed, or hopeless? No ABUSE: Current or Past(Physical, Sexual or Emotional)- No Do you feel safe in your environment - Yes History Substance Use Topics ??? Smoking status: Never Smoker ??? Smokeless tobacco: Not on file ??? Alcohol Use: Yes not often The patient does not drink >3 drinks per day nor >7 drinks per week. Reviewed orders with patient. Reviewed health maintenance and updated orders accordingly - Yes Staff Signature Carrie Briggs M.A. 1. Cholesterol medication: stopped simvastatin in May due to difficulty with muscle weakness. Noticed difficult to do weight lifting and increase muscle mass. Started after switched from lipitor tosimvastatin due to cost. Off simvastatin for a few months now, symptoms completely resolved. Pt fasting today. 2. Restless leg syndrome: uses requip as needed. Does not tolerate the medication well, so takes 1/2pill. Tolerates better with this. Pt is pescaterian. Takes multivitamin. Has had iron levels checkedbefore. Not aware of connection of iron deficiency anemia and restless leg syndrome. 3. Parkinson's: good improvement with sinemet. Feels like wearing off. Has appointment with neuro soon. Plans to discuss increasing dose. 4. ED: good improvement with viagra. No side effects. All Histories reviewed and updated in [facility]. ROS: C: NEGATIVE for fever, chills, change in weight I: NEGATIVE for worrisome rashes, moles or lesions E: NEGATIVE for vision changes or irritation ENT: NEGATIVE for ear, mouth and throat problems R: NEGATIVE for significant cough or SOB CV: NEGATIVE for chest pain, palpitations or peripheral edema GI: NEGATIVE for nausea, abdominal pain, heartburn, or change in bowel habits male: erectile dysfunction, improved on viagra, negative for dysuria, hematuria, decreased urinary stream, urethral discharge M: NEGATIVE for significant arthralgias or myalgia N: Parkinsons, NEGATIVE for weakness, dizziness or paresthesias P: NEGATIVE for changes in mood or affect OBJECTIVE: BP 118/72 Pulse 68 Ht 6' 1.5 (1.867 m) Wt 188 lb 14.4 oz (85.684 kg) BMI 24.58 kg/m2 GENERAL APPEARANCE: health, alert and no distress, slight mask-like facies EYES: Eyes grossly normal to inspection, PERRL and conjunctivae and sclerae normal HENT: ear canals and TM's normal, nose and mouth without ulcers or lesions, oropharynx clear and oral mucous membranes moist NECK: no adenopathy, no asymmetry, masses, or scars and thyroid normal to palpation RESP: lungs clear to auscultation - no rales, rhonchi or wheezes CV: regular rates and rhythm, normal S1 S2, no S3 or S4, no murmur, click or rub, no peripheral edema and peripheral pulses strong ABDOMEN: soft, nontender, no hepatosplenomegaly, no masses and bowel sounds normal MS: some rigidity and stiff movements. Normal strength, no ataxia SKIN: no suspicious lesions or rashes NEURO: Normal strength and tone, sensory exam grossly normal, mentation intact and speech normal. Some rigidity, stiffness and mildly shuffling gait. PSYCH: mentation appears normal and affect normal/bright COUNSELING: regular exercise weight management healthy diet/nutrition vision screening safe sex practices/STD prevention prostate cancer screening Osteoporosis Prevention/Bone Health ATP III Guidelines ICSI Preventive Guidelines ASSESSMENT/PLAN: V70.0 Routine general medical examination at a health care facility (primary encounter diagnosis) Plan: - PSA today - Tdap UTD - pt unsure about colonoscopy, discussed at length. Ok with fit testing. Will discuss further with . - Discussed healthy living styles including seat belt use, regular exercise, sensible diet, calcium intake and regular dental visits. 333.94H Restless leg syndrome Comment: controlled with requip, but not well tolerated Plan: Ferritin - check ferritin, goal > 50 - requip as needed 272.4CV Hyperlipidemia LDL goal < 130 Plan: Lipid Profile, Comprehensive metabolic panel - off of simvastatin with improved muscle weakness - recheck lipids today, expect they will be elevated - will start either pravastatin or crestor depending on results and see if improved side effects 607.84D Erectile dysfunction Comment: responds to viagra, no side effects Plan: sildenafil (VIAGRA) 50 MG tablet 332.0M Parkinson disease Comment: some wearing off of medications Plan: follow-up with Neurology as planned V76.51F Screening for colon cancer Comment: will discuss colonoscopy with Plan: Fecal colorectal cancer screen FIT - will call if agreeable to colonoscopy V76.44B Screening for prostate cancer Plan: Prostate spec antigen screen - discussed risks/benefits of testing V77.1 Screening for diabetes mellitus Plan: Comprehensive metabolic panel Lurdes Laughlin MD Internal Medicine/Pediatrics documented in this encounter Plan of Treatment Not on filedocumented as of this encounter Procedures Procedure Name Priority Date/Time Associated Diagnosis Comme nts PROSTATE SPECIFIC Routine 10/15/2010 8:32 Screening for prosta te Results for this ANTIGEN SCREEN AM CDT cancer procedure are in the results section. LIPID PROFILE Routine 10/15/2010 8:32 Hyperlipidemia LDL Resul ts for this AM CDT goal < 130 procedure are i n the results section. FERRITIN Routine 10/15/2010 8:32 Restless leg syndrome Res ults for this AM CDT procedure are i n the results section. COMPREHENSIVE Routine 10/15/2010 8:32 Hyperlipidemia LDL Resul ts for this METABOLIC PANEL AM CDT goal < 130 procedure are in Screening for diabetes the r esults mellitus section. documented in this encounter Results Prostate spec antigen screen (10/15/2010 8:32 AM CDT) athologist Signature PSA 0.85 0 - 4 ug/L [facility] Specimen Anatomical Collection Method Collection Time Receive d Time (Source) Location / / Volume Laterality Blood specimen 10/15/2010 8:32 AM 011 8:37 (specimen) CDT AM CDT Lurdes Thomas MD LAB - BLOOD ORDERABLES Performing Organization Address City/[facility] Code Phon e Number [facility] [address] [place] [phone] [facility] Ferritin (10/15/2010 8:32 AM CDT) athologist Signature Ferritin 47 20 - 300 [facility] ng/mL CLINIC LAB Specimen Anatomical Collection Method Collection Time Receive d Time (Source) Location / / Volume Laterality Blood specimen 10/15/2010 8:32 AM 011 8:37 (specimen) CDT AM CDT Lurdes Thomas MD LAB - BLOOD ORDERABLES Performing Organization Address City/[facility] Phon e Number [facility] [address] [place] [phone] [facility] Comprehensive metabolic panel (10/15/2010 8:32 AM CDT) P athologist Signature Sodium 142 133 - 144 [place] [facility] mmol/L [facility] Potassium 4.7 3.4 - 5.3 [facility] mmol[facility]L [facility] Chloride 103 94 - 109 [facility] mmol/L [facility] Carbon Dioxide 28 20 - 32 [place] [facility] mmol/L [facility] Anion Gap 11 6 - 17 [facility] mmol/L [facility] Comment: CORRECTED ON 10/18 AT 1537: PRE VIOUSLY REPORTED 10 Glucose 101 (H) 60 - 99 mg/dL [facility] Urea Nitrogen 21 7 - 30 mg/dL [facility] N [facility] Creatinine 0.99 0.66 - 1.25 mg/dL [facility] GFR Estimate 79 >60 mL/min/1.7m2 [place] [facility] Comment: CORRECTED ON 10/18 AT 1537: PRE VIOUSLY REPORTED Not Calculated GFR Estimate If Black >90 >60 mL/min/1.7m2 F [facility] CORRECTED ON 10/18 AT 1537: PREVIOUSLY REPORTED Not Tres culated CLINIC LAB Calcium 9.0 8.5 - 10.4 mg/dL [facility] Bilirubin Total 0.7 0.2 - 1.3 mg/dL [facility] Albumin 4.2 3.9 - 5.1 g/dL [facility] Comment: Reference range changed on 01/21. Protein Total 7.1 6.8 - 8.8 g/dL [facility] Comment: As of 07, reference range reflects plasma specimen type. Alkaline Phosphatase 77 40 - 150 U/L [facility] CLINIC LAB ALT 15 0 - 70 U/L [facility] CLIN IC LAB AST 31 0 - 55 U/L [facility] IC LAB Specimen Anatomical Collection Method Collection Time Receive d Time (Source) Location / / Volume Laterality Blood specimen 10/15/2010 8:32 AM 011 8:37 (specimen) CDT AM CDT Lurdes Thomas MD LAB - BLOOD ORDERABLES Performing Organization Address City/[facility] Phon e Number [facility] [address] [place] [address] [phone] [facility] (ABNORMAL) Lipid Profile (10/15/2010 8:32 AM CDT) P athologist Signature Cholesterol 232 (H) 0 - 200 [facility] mg/dL CLINIC LAB Comment: LDL Cholesterol is the primary guide to therapy. The NCEP recommends further evaluation of: patients with cholesterol greater than 200 mg/dL if additional risk facto rs are present, cholesterol greater than 240 mg/dL, triglycerides greater than 1 50 mg/dL, or HDL less than 40 mg/dL. Triglycerides 95 0 - 150 mg/dL [facility] HDL Cholesterol 56 40 - 110 mg/dL [facility] LDL Cholesterol Calculated 157 (H) 0 - 129 mg/dL [facility] Comment: LDL Cholesterol is the primary guide to therapy: LDL-cholesterol goal in high risk patients is <100 mg/dL and in very high risk patients is <70 mg/dL. VLDL-Cholesterol 19 0 - 30 mg/dL [facility] Cholesterol/HDL Ratio 4.1 0.0 - 5.0 [facility] Comment: CORRECTED ON 10/18 AT 1537: PRE VIOUSLY REPORTED 4.2 Specimen Anatomical Collection Method Collection Time Receive d Time (Source) Location / / Volume Laterality Blood specimen 10/15/2010 8:32 AM 011 8:37 (specimen) CDT AM CDT Lurdes Thomas MD LAB - BLOOD ORDERABLES Performing Organization Address [facility] Phon e Number [facility] [address] [place] [address] [phone] [facility] documented in this encounter Visit Diagnoses Diagnosis Routine general medical examination at a health care facility - Primary Restless leg syndrome Restless legs syndrome (RLS) Hyperlipidemia LDL goal < 130 Other and unspecified hyperlipidemia Erectile dysfunction Impotence of organic origin Parkinson disease (H) Paralysis agitans Screening for colon cancer Special screening for malignant neoplasm s, colon Screening for prostate cancer Special screening for malignant neoplasm of prostate Screening for diabetes mellitus documented in this encounter Care Teams Bingo Usher Relationship Specialty Start Date End Date Lurdes Thomas MD PCP - General Internal Medicine 04/12/10 04/03/13 documented as of this encounter
--- OUTSIDE RECORDS SUMMARY | 2021-12-28 12:17 | XMS_ITS | Encounter Summary ---
:1955 Author Organization [place] Address [address] [place] [address]. [place] [address] Care Team Providers Name Role Phone Lurdes Thomas MD Primary Care Provider [phone] Reason for Visit Reason Onset Date Comments Pt. Information/instruction 10/26/2011 Physical the rapy Encounter Details Date Type Department Care Team Description 10/26/2011 Telephone [facility] E[facility] Lurdes Rojas Pt. 14[address] [facility] MD [place] Information/instruction [place] [id number] [facility] (Physical therapy) [phone] [place] [address] (Wo rk) Social History Tobacco Use [...] encounter Miscellaneous Notes Telephone Encounter - Lurdes Laughlin MD - 10/26/2011 12:56 PM CDT Noted, thanks. Lurdes Laughlin MD Internal Medicine/Pediatrics Telephone Encounter - Maki Major - 10/26/2011 8:20 AM CDT Copied from My Chart message in 's chart- Lyle Chatman - Andrew was in to see a Dr. Richards (sp?) yesterday. He has a pinched nerve in his left shoulder/neck . 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 We needed ultra sound treatment dinora! So I took matters into my own hands and took him to a chiropractor here in [place] who does the ultrasound treatments. He got us in right away yesterday. 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 The Chiropractor thinks he can get Andrew feeling pretty good by the middle ofnext week. I'm telling you this because I thought you should know that Andrew probably will not followthrough with the prescribed Physical Therapy. They weren't even going to be able to get to any therapy until the week after his show. They were pretty booked up. He wants to cancel the appt we made forthis and continute with the Ultra Sound Treatment from the Chiropractor -he feels so much better today and it seemed to really help. I just wanted you to be aware of the steps we were taking on our end. Thanks. FYI to Dr. Laughlin. Maame Major RN Message handled by Nurse Triage. documented in this encounter Plan of Treatment Not on filedocumented as of this encounter Visit Diagnoses Not on filedocumented in this encounter Care Teams Director Organizational Relationship Specialty Start Date End Date Lurdes Thomas MD PCP - General Internal Medicine 04/12/10 04/03/13 documented as of this encounter
--- OUTSIDE RECORDS SUMMARY | 2021-12-28 12:17 | XMS_ITS | Encounter Summary ---
:1955 Author Organization [place] Address [address] [place] [address]. [place] [address] Care Team Providers Name Role Phone Lurdes Thomas MD Primary Care Provider [phone] Reason for Visit Reason Onset Date Comments Refill Request 06/08/2012 pravastatin Encounter Details Date Type Department Care Team Description 06/08/2012 Refill [facility] Eag Lurdes Rojas Refill Request 1440 [facility] MD [place] (pravastatin) [place] [address] [facility] [phone] [address] (Wo rk) Social History Tobacco Use [...] this encounter Miscellaneous Notes Telephone Encounter - Jeannine Waldron - 06/08/2012 2:37 PM CST Refilled for one time 3 month supply. Letter mailed to schedule appointment. Jeannine Waldron RN WARE TEST ANALYST Telephone Encounter - Jeannine Waldron - 06/08/2012 1:33 PM CST Med requested: pravastatin Last office visit: 07/27/11 BP Readings from Last 1 Encounters: 10/25/11 104/66 Last pertinent lab: CHOL 236 07/27/2011 HDL 60 07/27/2011 LDL 152 07/27/2011 TRIG 121 07/27/2011 CHOLHDLRATIO 3.9 07/27/2011 AST 35 07/27/2011 ALT 20 07/27/2011 Jeannine Waldron RN WARE TEST ANALYST documented in this encounter Plan of Treatment Not on filedocumented as of this encounter Visit Diagnoses Diagnosis Hyperlipidemia LDL goal < 130 - Primary Other and unspecified hyperlipidemia documented in this encounter Care Teams Aeronautical Research Engineer Relationship Specialty Start Date End Date Martha, Lurdes Laughlin MD PCP - General Internal Medicine 04/12/10 04/03/13 documented as of this encounter
--- OUTSIDE RECORDS SUMMARY | 2021-12-28 12:17 | XMS_ITS | Encounter Summary ---
:1955 Author Organization [place] Address [address] [place] [address]. [place] [address] Care Team Providers Name Role Phone Lurdes Thomas MD Primary Care Provider Reason for Visit Reason Onset Date Comments Back Pain 07/20/2011 6 wk follow up Encounter Details Date Type Department Care Team Description 07/20/2011 Telephone [facility] Lurdes Oh Back Pain (6 wk follow 1440 [facility] MD [place] up) [place] [address] [facility] [phone] [address] (Wo rk) Social History Tobacco Use [...] this encounter Miscellaneous Notes Telephone Encounter - Blanca Brandt - 09/08/2011 3:50 PM CDT My chart message sent to patient. Closing encounter since 3rd attempt to reach patient. Kristina Brandt RN Telephone Encounter - Blanca Brandt - 09/02/2011 10:24 AM CDT Left message on cell for patient to return call or send Amusohart message on how he is doing with backpain. Kristina Brandt RN Telephone Encounter - Maki Major - 08/22/2011 3:28 PM CDT LOW BACK PAIN nursing triage 6 week follow-up: Maki Major [facility]01[facility] Telephone Encounter - Blanca Brandt - 07/20/2011 10:38 AM CST Please post pone and call patient for 6wk follow up of low back pain on or around 08/22/11. Kristina Brandt RN Y DECORATOR documented in this encounter Plan of Treatment Not on filedocumented as of this encounter Visit Diagnoses Not on filedocumented in this encounter Care Teams Waterworks Employee Relationship Specialty Start Date End Date Lurdes Thomas MD PCP - General Internal Medicine 04/12/10 04/03/13 documented as of this encounter
--- OUTSIDE RECORDS SUMMARY | 2021-12-28 12:17 | XMS_ITS | Encounter Summary ---
:1955 Author Organization [place] Address [address] [place] [address]. [place] [address] Care Team Providers Name Role Phone Unavailable Primary Care Provider Unavailable Reason for Visit Reason Onset Date Comments Outreach 04/04/2013 Preventative health screening Encounter Details Date Type Department Care Team Description 04/04/2013 Telephone [facility] Eag Lurdes Rojas Outreach (Preventative 1440 [facility] MD [place] health screening) [place] [address] [facility] [employer] [phone] [address] (Wo rk) Social History Tobacco Use [...] this encounter Miscellaneous Notes Telephone Encounter - Charanjit Garcia - 04/04/2013 5:52 PM CST 04/04/2013 Call Regarding Preventive Health Screening Colonoscopy Attempt 1 Comments: Per patient, he [facility] due to insurance [facility], [facility] Outreach [employer] Vat Tender Charanjit Amaro WEIGHER documented in this encounter Plan of Treatment Not on filedocumented as of this encounter Visit Diagnoses Not on filedocumented in this encounter
--- OUTSIDE RECORDS SUMMARY | 2021-12-28 12:17 | XMS_ITS | Encounter Summary ---
:1955 Author Organization [facility] Address [address] [place] [address]. [place] [address] Care Team Providers Name Role Phone Lurdes Thomas MD Primary Care Provider [phone] Reason for Visit Reason Onset Date Comments Back Pain 07/11/2011 3 day follow up Encounter Details Date Type Department Care Team Description 07/11/2011 Refill [facility] Lurdes Oh Back Pain (3 day follow 1440 [facility] MD [place] up) [place] [address] [facility] [phone] [address] (Wo rk) Social History Tobacco [...] PM CDT documented as of this encounter Patient Instructions Patient InstructionsBlanca Brandt - 07/11/2011 10:29 AM CST Images from the original note were not included. Acute Low Back Pain: Self Care at Home Instructions Conservative Treatment ?? Remaining active supports a quicker recovery, keep moving. (ex. Walking, increase time & speed as tolerated). ?? Bed rest is not recommended. Minimize sitting. Do not remain in one position for extended periodsof time. ?? Maintain routine activity with attention to correct posture; stop aggravating activities. ?? Atxp-whh-hdnjqxm pain medications for short term symptom control. (See below) ?? Muscle relaxants are sometimes helpful for few days, but may cause drowsiness. (See below) ?? Cold packs or heat based upon your preference. ?? Most people improve within 2 weeks; most have significant improvement within 4 weeks. ?? If symptoms worsen or you experience numbness, contact your provider immediately. Medications for Pain Relief Recommended itoi-gxp-mrzrliw non-steroidal anti-inflammatories: Ibuprofen (Advil, Motrin) 600 mg. three times a day as needed for pain OR Naproxen Sodium (Aleve) 220-440 mg. two times per day as needed for pain If you have been prescribed a muscle relaxant (*cyclobenzapine 10 mg.) Take ?? - 1 tablet at bedtime *May cause drowsiness. Do not drive when taking this medication. Low Back Pain Exercises Exercises that stretch and strengthen the muscles of your abdomen and spine can help prevent back problems. If your back and abdominal muscles are strong, you can maintain good posture and keep your spine in its correct position. If your muscles are tight, take a warm shower or bath before doing the exercises. Exercise on a rug or mat. Stop doing any exercise that causes pain until you have talked with your provider. These exercises are intended only as suggestions. Ask your provider or physical therapist to help you develop an exercise program. Check with your provider before starting the exercises. Ask your provider how many times a week you need to do the exercises. Low Back Pain Exercises ?? Cat and camel: Get down on your hands and knees. Let your stomach sag, allowing your back to curve downward. Hold this position for 5 seconds. Then arch your back and hold for 5 seconds. Do 3 sets of 10. ?? Pelvic tilt: Lie on your back with your knees bent and your feet flat on the floor. Tighten your abdominal muscles and push your lower back into the floor. Hold this position for 5 seconds, then relax. Do 3 sets of 10. ?? Extension exercise: Lie face down on the floor for 5 minutes. If this hurts too much, lie face down with a pillow under your stomach. This should relieve your leg or back pain. When you can lie on your stomach for 5 minutes without a pillow, then you can continue with the rest of this exercise. After lying on your stomach for 5 minutes, prop yourself up on your elbows for another 5 minutes. Lie flat again for 1 minute, then press down on your hands and extend your elbows while keeping your hips flat on the floor. Hold for 1 second and lower yourself to the floor. Repeat 10 times. Do 4 sets. Rest for 2 minutes between sets. You should have no pain in your legs when you do this, but it is normal to feel pain in your lower back. Do this several times a day. Developed by [employer] Published by [employer]. Last modified: 2008-06-29 Last reviewed: 2007-11-26 This content is reviewed periodically and is subject to change as new health information becomes available. The information is intended to inform and educate and is not a replacement for medical evaluation, advice, diagnosis or treatment by a healthcare professional. Adult Health Advisor 2009.1 Index Adult Health Advisor 2009.1 Credits ?? 2009 [facility] and/or its affiliates. All Rights Reserved. E GAUGER documented in this encounter Miscellaneous Notes Telephone Encounter - Blanca Brandt - 07/20/2011 10:37 AM CST LOW BACK PAIN nursing triage 3 day follow-up: Patient has been contacted in follow-up of his low back pain. He was able to go on his trip. Symptoms have improved a lot. Still feels a little stiff and sore. Is taking the muscle relaxants at night and doing the exercises as tolerated. Concerning symptoms again reviewed: None Concerning symptoms: Patient reports:None Patient denies: None Concerning factors: Patient denies: None Patient reports: None Discussed symptom(s) with provider: NO Plan: Follow up call in 6 weeks Patient verbalized understanding of plan and is agreeable. Blanca Brandt E GAUGER Telephone Encounter - Blanca Brandt - 07/11/2011 10:18 AM CST Called and spoke with patient and informed of message from Dr. Laughlin below. Mailed back exercises.Patient is wanting to hold off on physical therapy at this time. Kristina Brandt RN E GAUGER Telephone Encounter - Nathalia Galvan - 07/11/2011 9:50 AM CST Called and LM for pt with message below. Nathalia Galvan MA E GAUGER Telephone Encounter - Lurdes Laughlin MD - 07/11/2011 9:08 AM PLATE GAUGER Ibuprofen or naproxen are ok. Flexeril has potential interaction with azilect. I changed muscle relaxant to methocarbamol (robaxin) and sent to pharmacy. This also may make him sleepy. Please let patient know. Thanks, Lurdes Laughlin MD Internal Medicine/Pediatrics E GAUGER Telephone Encounter - Blanca Brandt - 07/11/2011 8:32 AM CST Images from the original note were not included. Patient calls stating he was bending over to clean [employer] box yesterday morning and had back pain. He is leaving for [place] for work this afternoon. Wants to make sure he can take muscle relaxant, ibuprofen or Aleve with his parkinson medications. He will be back on Monday. (See protocol below) Routing to Dr. Laughlin for recommendations. Kristina Brandt RN LOW BACK PAIN nursing triage note: Andrew Pang is a 56 year old male reports having low back pain. Pain began yesterday. Mechanism ofinjury:bending. Prior history of low back pain: yes about 6 months ago, and current symptoms are similar to previousepisode(s) Work-related injury was cause of back pain: No MVA-related: no The pain is described as burning, sharp and spasms, is located low back bilateral. Pain does not radiate. Rates pain as +5/10 today, +8/10 yesterday when it occurred. Concerning symptoms: Patient reports:None Patient denies: None Concerning factors: Patient denies: None Patient reports: None Discussed symptom(s) with provider: YES Confirm that the patient can walk on toes:Yes Confirm that the patient can walk on heels: Yes Confirm that the patient can walk up stairs alternating right and left? Yes If patient is unable to perform, confirm that it is due to weakness and NOT PAIN. (It will be painful) Patient sees another specialist for LBP: no Other symptoms: Follow up: Less than 6 weeks and pain, tingling or numbness is not in the thigh, leg, or foot, and no Red Flags: ?? Watchful Waiting ?? Initiate Medication Protocol ?? Encourage early movement and continued regular activities (modify as indicated) ?? Instruct in self-care options ?? Follow-up in 3 days and 6 wks per lumbar care package instructions Patient verbalized understanding of this plan and is agreeable. Patient to be contacted again in 3 days. If the patient admits to Coumadin use and any medications prescribed or recommended, RN to inform anticoagulation clinic PLAN: Follow up call in 3 days Referral to [facility] Patient verbalize understanding of this plan and is agreeable. Blanca Brandt Acute Low Back Pain: Self Care at Home Instructions Conservative Treatment ?? Remaining active supports a quicker recovery, keep moving. (ex. Walking, increase time & speed as tolerated). ?? Bed rest is not recommended. Minimize sitting. Do not remain in one position for extended periodsof time. ?? Maintain routine activity with attention to correct posture; stop aggravating activities. ?? Uriz-spw-vdplvms pain medications for short term symptom control. (See below) ?? Muscle relaxants are sometimes helpful for few days, but may cause drowsiness. (See below) ?? Cold packs or heat based upon your preference. ?? Most people improve within 2 weeks; most have significant improvement within 4 weeks. ?? If symptoms worsen or you experience numbness, contact your provider immediately. Medications for Pain Relief Recommended xsap-uta-dmgmpwi non-steroidal anti-inflammatories: Ibuprofen (Advil, Motrin) 600 mg. three times a day as needed for pain OR Naproxen Sodium (Aleve) 220-440 mg. two times per day as needed for pain If you have been prescribed a muscle relaxant (*cyclobenzapine 10 mg.) Take ?? - 1 tablet at bedtime *May cause drowsiness. Do not drive when taking this medication. Low Back Pain Exercises Exercises that stretch and strengthen the muscles of your abdomen and spine can help prevent back problems. If your back and abdominal muscles are strong, you can maintain good posture and keep your spine in its correct position. If your muscles are tight, take a warm shower or bath before doing the exercises. Exercise on a rug or mat. Stop doing any exercise that causes pain until you have talked with your provider. These exercises are intended only as suggestions. Ask your provider or physical therapist to help you develop an exercise program. Check with your provider before starting the exercises. Ask your provider how many times a week you need to do the exercises. Low Back Pain Exercises ?? Cat and camel: Get down on your hands and knees. Let your stomach sag, allowing your back to curve downward. Hold this position for 5 seconds. Then arch your back and hold for 5 seconds. Do 3 sets of 10. ?? Pelvic tilt: Lie on your back with your knees bent and your feet flat on the floor. Tighten your abdominal muscles and push your lower back into the floor. Hold this position for 5 seconds, then relax. Do 3 sets of 10. ?? Extension exercise: Lie face down on the floor for 5 minutes. If this hurts too much, lie face down with a pillow under your stomach. This should relieve your leg or back pain. When you can lie on your stomach for 5 minutes without a pillow, then you can continue with the rest of this exercise. After lying on your stomach for 5 minutes, prop yourself up on your elbows for another 5 minutes. Lie flat again for 1 minute, then press down on your hands and extend your elbows while keeping your hips flat on the floor. Hold for 1 second and lower yourself to the floor. Repeat 10 times. Do 4 sets. Rest for 2 minutes between sets. You should have no pain in your legs when you do this, but it is normal to feel pain in your lower back. Do this several times a day. Developed by [employer] Published by [employer]. Last modified: 2008-06-29 Last reviewed: 2007-11-26 This content is reviewed periodically and is subject to change as new health information becomes available. The information is intended to inform and educate and is not a replacement for medical evaluation, advice, diagnosis or treatment by a healthcare professional. Adult Health Advisor 2009.1 Index Adult Health Advisor 2009.1 Credits ?? 2009 [facility] and/or its affiliates. All Rights Reserved. E GAUGER documented in this encounter Plan of Treatment Not on filedocumented as of this encounter Visit Diagnoses Diagnosis Back muscle spasm - Primary Other symptoms referable to back documented in this encounter Care Teams Director Of Scientific Research Relationship Specialty Start Date End Date Lurdes Thomas MD PCP - General Internal Medicine 04/12/10 04/03/13 documented as of this encounter
--- OUTSIDE RECORDS SUMMARY | 2021-12-28 12:17 | XMS_ITS | Encounter Summary ---
:1955 Author Organization [facility] Address [address] [place] [address]. [place] [address] Care Team Providers Name Role Phone Lurdes Thomas MD Primary Care Provider [phone] Reason for Visit Reason Onset Date Comments Lab Result Notice 07/28/2011 Encounter Details Date Type Department Care Team Description 07/28/2011 Telephone [facility] Eag an Lurdes Thomas Lab Result Notice 1440 [facility] [place] [address] [facility] [phone] [address] (Wo rk) Social History Tobacco Use [...] Telephone Encounter - Lurdes Laughlin MD - 07/28/2011 9:25 PM INSURANCE CODER LDL not at goal, needs increased dose. Lurdes Laughlin MD Internal Medicine/Pediatrics RANCE CODER documented in this encounter Plan of Treatment Not on filedocumented as of this encounter Visit Diagnoses Diagnosis Hyperlipidemia LDL goal < 130 - Primary Other and unspecified hyperlipidemia documented in this encounter Care Teams Manager Business Information Relationship Specialty Start Date End Date Lurdes Thomas MD PCP - General Internal Medicine 04/12/10 04/03/13 documented as of this encounter
--- OUTSIDE RECORDS SUMMARY | 2021-12-28 12:17 | XMS_ITS | Encounter Summary ---
:1955 Author Organization [facility] Address [address] [place] [address]. [place] [address] Care Team Providers Name Role Phone Lurdes Thomas MD Primary Care Provider [phone] Reason for Visit Reason Onset Date Comments Musculoskeletal Problem 07/13/2010 Muscle aches and weakness Encounter Details Date Type Department Care Team Description 07/13/2010 Telephone [facility] Lurdes Thomas Musculosk eletal Problem Uzair Laughlin MD (Muscle aches and [address] [facility] weakness) [place] [address] [place] [phone] [address] [place], [place] [address] Social History Tobacco Use [...] Miscellaneous Notes Telephone Encounter - Lurdes Laughlin - 07/16/2010 12:46 PM NEUROLOGY SPECIALIST Called and discussed with patient. Previously on lipitor, switched to simvastatin about 2 years ago for insurance reasons. Over past 1-2 years has noticed some increased muscle aches. Started shortly after the switch. Does not have actually increased weakness, but noted difficulty with gaining strength despite weight lifting. Will try stopping simvastatin for 2-3 weeks. If symptoms improve, will consider change to either crestor or pravastatin. If do not improve, should be evaluated. Lurdes Laughlin MD Internal Medicine/Pediatrics OLOGY SPECIALIST Telephone Encounter - Lurdes Laughlin - 07/15/2010 4:14 PM NEUROLOGY SPECIALIST Attempted again to call pt and at home and on cell. Left a message on cell. Asked pt to call or willtry back tomorrow. Lurdes Laughlin MD Internal Medicine/Pediatrics OLOGY SPECIALIST Telephone Encounter - Lurdes Laughlin - 07/15/2010 12:41 PM NEUROLOGY SPECIALIST Attempted to call patient to follow-up. Left a message at home. Will call back later. Lurdes Laughlin MD Internal Medicine/Pediatrics OLOGY SPECIALIST Telephone Encounter - Lurdes Laughlin - 07/13/2010 3:38 PM NEUROLOGY SPECIALIST Agree with the above. Ok for trial off simvastatin, but should also talk with Neurologist. II will call Andrew on . Thanks! Lurdes Laughlin MD Internal Medicine/Pediatrics OLOGY SPECIALIST Telephone Encounter - Maki Major - 07/13/2010 2:15 PM CST , Meir, is calling to report that pt has noted muscle weakness recently in both legs and both arms. Has been able to continue working out. Has been on Simvastatin for several years. Also has history or Parkinson disease. Pt has stopped the Simvastatin and would like to be off of this for two weeks to see if symptoms geneva. Advised to also contact provider that he sees for Parkinson disease as the Simvastatin may not be the cause for his symptoms, especially with him having been on this for several years. Would like Dr. Laughlin's recommendation as well. Pt cannot be reached until . 's number is [phone]. Maame Major RN OLOGY SPECIALIST documented in this encounter Plan of Treatment Not on filedocumented as of this encounter Visit Diagnoses Not on filedocumented in this encounter Care Teams Hand Polisher Relationship Specialty Start Date End Date Lurdes Thomas MD PCP - General Internal Medicine 04/12/10 04/03/13 documented as of this encounter
--- OUTSIDE RECORDS SUMMARY | 2021-12-28 12:17 | XMS_ITS | Encounter Summary ---
:1955 Author Organization [facility] Address [address] [place] [address]. [place] [address] Care Team Providers Name Role Phone Lurdes Thomas MD Primary Care Provider [phone] Reason for Visit Reason Onset Date Comments Refill Request 04/11/2011 pravastatin Encounter Details Date Type Department Care Team Description 04/11/2011 Refill [facility]3] Eag Lurdes Rojas Refill Request 1440 [facility] MD [place] (pravastatin) [place] [address] [facility] [phone] [address] (Wo rk) Social History Tobacco Use [...] this encounter Miscellaneous Notes Telephone Encounter - Nicole Bland - 04/11/2011 5:11 PM CST Refilled pravastatin PSO # 30 no rf, pt due for labs letter sent. Received refill request from [facility] for pravastatin. Last Office Visit R/T Diagnosis: 10/15/10 Provider Notes: recheck x fasting labs in 8 weeks CHOL 232 10/15/2010 HDL 56 10/15/2010 LDL 157 10/15/2010 TRIG 95 10/15/2010 CHOLHDLRATIO 4.1 10/15/2010 ALT 15 10/15/2010 AST 31 10/15/2010 STATINS Crestor, Lescol, Lipitor, Livalo, Mevacor, Pravachol, Zocor OV: 12 mths Tests: Annual-FLP and ALTor AST Every 6 mths-not at FLP goal Repeat FLP and ALt or AST 6-8 wks after dosage change Max refills: 12 mths if LDL at goal 6mths if LDL not at goal (or review last OV for treatment goals) May refill until date of future order of scheduled May substitute via therapeutic comparison chart: [facility] CoA REDUCTASE INHIBITORS (STATINS) MAKING MACHINE OPERATOR documented in this encounter Plan of Treatment Not on filedocumented as of this encounter Visit Diagnoses Diagnosis Hyperlipidemia LDL goal < 130 - Primary Other and unspecified hyperlipidemia documented in this encounter Care Teams Softwood Faller Relationship Specialty Start Date End Date Lurdes Thomas MD PCP - General Internal Medicine 04/12/10 04/03/13 documented as of this encounter
--- OUTSIDE RECORDS SUMMARY | 2021-12-28 12:17 | XMS_ITS | Encounter Summary ---
:1955 Author Organization [facility] Address [address] [place] [address]. [place] [address] Care Team Providers Name Role Phone Lurdes Thomas MD Primary Care Provider Reason for Visit Reason Comments Establish Care Encounter Details Date Type Department Care Team Description 04/12/[address] [facility] Lurdes Thomas Erectile dysfunction (Primary Dx); Uzair Laughlin MD Parkinson disease (H); [address] [email or web address] Hyperlipidemia LDL goal < 13 0; [place] [address] [facility] Restless leg [phone] [place] [address] Social History Tobacco Use Types [...] Sign Reading Time Taken Comments Blood Pressure 122/60 04/12/2010 10:07 AM LAMBSKIN TRIMMER Pulse 70 04/12/2010 10:07 AM LAMBSKIN TRIMMER Temperature - - Respiratory Rate - - Oxygen Saturation - - Inhaled Oxygen Concentration - - Weight 87 kg (191 lb 12.8 oz) 04/12/2010 10:07 AM LAMBSKIN TRIMMER Height 186.7 cm (6' 1.5) 04/12/2010 10:07 AM LAMBSKIN TRIMMER Body Mass Index 24.96 04/12/2010 10:07 AM LAMBSKIN TRIMMER documented in this encounter Progress Notes Lurdes Laughlin - 04/12/2010 2:09 PM CST SUBJECTIVE Andrew Pang is a 55 year old male who is here today with his to establish care and for erectile dysfunction: Pt w/ h/o Parkinson's disease diagnosed 3 years ago. Father also with Parkinson's disease. Pt started on azilect at diagnosis and recently started on carbidopa/levodopa CR twice a day. Has noticed a big difference in symptoms since starting about 6 months ago. Also, was getting some leg cramping whichhe was taking ropinirole for. Leg cramping much better since starting carbidopa- levodopa and not requiring as much ropinirole. Pt here today for ED. Has had problems maintaining an erection for past 6 months or so. Pt able to get an erection, but not very firm and difficulty maintaining with penetration. very supportive. No difficulty with relationship. Pt does not have any history of heart disease or diabetes, but is oncholesterol medication and family history of heart disease. No problems with desire or arousal. Someincreased stress with difficulty maintaining erection. REVIEW OF SYSTEMS GENERAL: normal energy and appetite. SKIN: no rash, hives, other lesions. RESP: no cough, wheeze, respiratory distress. CV: no tachycardia, palpitations, syncope. GI: no nausea, vomiting, diarrhea, constipation, abdominal pain. URINARY: no dysuria, frequency, urgency. GENITAL (male): as above and erectile dysfunction There is no problem list on file for this patient. No current outpatient prescriptions on file prior to encounter. No Known Allergies OBJECTIVE BP 122/60 Pulse 70 Ht 6' 1.5 (1.867 m) Wt 191 lb 12.8 oz (87 kg) General Appearance: healthy, alert and no distress, mask-like facies Respiratory: lungs clear to auscultation - no rales, rhonchi or wheezes. Cardiovascular: regular rate and rhythm, normal S1 S2, no S3 or S4 and no murmur, click or rub. No peripheral edema. Skin: no rashes or lesions. Well perfused and normal turgor. Neuro: mild pill-rolling tremor in R > L hand DIAGNOSTICS None ASSESSMENT/PLAN 607.84D Erectile dysfunction (primary encounter diagnosis) Comment: reviewed medications and ED not listed as side effect for any medications. Ropinirole can cause increased erection, but not ED. Etiology of ED could be related to autonomic dysfunction with Parkinson's vs vascular vs exacerbated by performance anxiety after previous attempts. Given normal desire and ability to achieve erection, doubt related to hypogonadism. Plan: sildenafil (VIAGRA) 50 MG tablet - will start trial of viagra - discussed that may not be covered by insurance - discussed possible side effects including mild hypotension, prolonged erection and vision changes 332.0M Parkinson disease Comment: followed by neurology Plan: rasagiline (AZILECT) 1 MG TABS, carbidopa-levodopa (SINEMET CR) 50-200 MG per tablet - IZZY completed for Neurologist 272.4CV Hyperlipidemia LDL goal < 130 Plan: simvastatin (ZOCOR) 20 MG tablet - due for recheck in 08/2010 333.94J Restless leg Plan: ropinirole (REQUIP) 0.5 MG tablet Lurdes Laughlin MD Internal Medicine/Pediatrics SKIN TRIMMER documented in this encounter Nursing Notes 04/12/2010 10:00 AM CST >> ERROL WARREN Mon Apr 12, 2010 10:10 AM Patient presents with: Establish Care Initial BP 122/60 Pulse 70 Ht 6' 1.5 (1.867 m) Wt 191 lb 12.8 oz (87 kg) Estimated Body mass index is 24.96 kg/(m^2) as calculated from the following: Height as of this encounter: 6' 1.5(1.867 m). Weight as of this encounter: 191 lb 12.8 oz(87 kg).. BP completed using cuff size: large Errol Warren MA documented in this encounter Plan of Treatment Not on filedocumented as of this encounter Visit Diagnoses Diagnosis Erectile dysfunction - Primary Impotence of organic origin Parkinson disease (H) Paralysis agitans Hyperlipidemia LDL goal < 130 Other and unspecified hyperlipidemia Restless leg Restless legs syndrome (RLS) documented in this encounter Care Teams Pallet Stone Positioner Relationship Specialty Start Date End Date Lurdes Thomas MD PCP - General Internal Medicine 04/12/10 04/03/13 documented as of this encounter
--- OUTSIDE RECORDS SUMMARY | 2021-12-28 12:17 | XMS_ITS | Encounter Summary ---
:1955 Author Organization [place] Address [address] [place] [address]. [place] [address] Care Team Providers Name Role Phone Lurdes Thomas MD Primary Care Provider Reason for Visit Reason Onset Date Comments Medication Request 10/24/2011 robaxin Encounter Details Date Type Department Care Team Description 10/24/2011 Telephone [facility] ([facility]3] Eag Lurdes Rojas Medication Request [address] [facility] MD [place] (robaxin) [place] [id number] [facility] [phone] 67 [address] (Wo rk) Social History Tobacco Use [...] this encounter Miscellaneous Notes Telephone Encounter - Sukumar Salen - 10/24/2011 8:36 AM CDT Strained muscle in neck doing a work out. He is asking for the same muscle relaxant as he had in 07/03 for back prob. Looks like he has a refill of the robaxin from Jun. and didn't think he filled it twice. will check in with the pharmacy and call back if another refill needed. Cindy Sal RN documented in this encounter Plan of Treatment Not on filedocumented as of this encounter Visit Diagnoses Not on filedocumented in this encounter Care Teams Barrel Turner Relationship Specialty Start Date End Date Lurdes Thomas MD PCP - General Internal Medicine 04/12/10 04/03/13 documented as of this encounter
--- OUTSIDE RECORDS SUMMARY | 2021-12-28 12:17 | XMS_ITS | Encounter Summary ---
:1955 Author Organization [facility] Address [address] [place] [address]. [place] [address] Care Team Providers Name Role Phone Lurdes Thomas MD Primary Care Provider [phone] Reason for Visit Reason Comments Edema right foot and ankle Encounter Details Date Type Department Care Team Description 03/15/2011 Office Visit [facility] Lurdes Thomas Swelling of extremity, Uzair Laughlin MD right (Primary Dx) [address] [facility] [place] [address] [place] [phone] [address] [place], [place] [address] Social History Tobacco Use [...] Sign Reading Time Taken Comments Blood Pressure 119/60 03/15/2011 3:05 PM CDT Pulse 70 03/15/2011 3:05 PM CDT Temperature - - Respiratory Rate - - Oxygen Saturation - - Inhaled Oxygen Concentration - - Weight 88.6 kg (195 lb 4.8 oz) 03/15/2011 3:05 PM CDT Height 186.7 cm (6' 1.5) 03/15/2011 3:05 PM CDT Body Mass Index 25.42 03/15/2011 3:05 PM CDT documented in this encounter Patient Instructions Patient InstructionsLurdes Laughlin MD - 03/15/2011 3:36 PM CDT Ultrasound of right leg at 4:15 [facility] [address] [place] [address] Wait for results - will page me after read by radiologist and we can talk over phone. If normal, continue compression stockings, elevate leg, decrease salt in diet - if bothersome, could try water pill to help with swelling. If clot, will need to start on blood thinners documented in this encounter Progress Notes Lurdes Laughlin MD - 03/15/2011 3:40 PM CDT SUBJECTIVE Andrew Pang is a 55 year old male who is here today with swelling of right lower leg, ankle and foot: Started about 2 weeks ago. Had traveled to [place] and [place] the week before. Only on right side. No known injury. No significant pain. Also with rash on top of foot. Thinks related to tennis shoes. Has been using antibiotic ointment and has improved significantly. Orthopedic socks help the swelling. Not necessarily better in am. No other swelling in left leg, hands or elaine-orbital area. No fevers or SOB. Overall, swelling is a little better today. Only newer medication is pravastatin and that was started in October. REVIEW OF SYSTEMS A complete 8 point review of systems of reviewed and negative other than that noted in the HPI Patient Active Problem List Diagnoses Code ??? Parkinson disease 332.0M ? ? Hyperlipidemia LDL goal < 130 272.4CV ??? Restless leg syndrome 333.94H Current outpatient prescriptions ordered prior to encounter: pravastatin (PRAVACHOL) 40 MG tablet Take 1 tablet by mouth daily. sildenafil (VIAGRA) 50 MG tablet Take 1 tablet by mouth daily as needed for erectile dysfunction. rasagiline (AZILECT) 1 MG TABS Take 1 tablet by mouth daily. carbidopa-levodopa (SINEMET CR) 50-200 MG per tablet Take by mouth 2 times daily. Pt unsure of dose ropinirole (REQUIP) 0.5 MG tablet Take 1 tablet by mouth 3 times daily. No Known Allergies OBJECTIVE BP 119/60 Pulse 70 Ht 6' 1.5 (1.867 m) Wt 195 lb 4.8 oz (88.587 kg) BMI 25.42 kg/m2 General Appearance: healthy, alert and no distress Respiratory: lungs clear to auscultation - no rales, rhonchi or wheezes. Cardiovascular: regular rate and rhythm, normal S1 S2, no S3 or S4 and no murmur, click or rub. 1+ edema of right foot, ankles and bottom third of right lower leg. Skin: Area slightly erythematous, no increased warmth. Area of dry skin with scaling about 5 cm x 3 cm in size on top of foot. Normal pulses Neuro: resting tremor DIAGNOSTICS None ASSESSMENT/PLAN 729.81AX Swelling of extremity, right (primary encounter diagnosis) Comment: asymmetrical swelling concerning for DVT. No other sx. May be related to rash that is healing. No evidence of cellulitis on exam. No tenderness to suggest fracture or sprain and swelling more pitting than usually seen with injury. Would be unusual to have renal failure or CHF or venous insufficiency present as asymmetrical swelling. Plan: US Venous lower extrem rt - need to r/o clot - if us negative, then would continue to monitor - compression stockings, decrease salt in diet, elevate leg - could try HCTZ to decrease welling - if positive, will need to start blood thinners Lurdes Laughlin MD Internal Medicine/Pediatrics documented in this encounter Nursing Notes 03/15/2011 3:15 PM CDT >> ERROL Elaine Mar 15, 2011 3:07 PM Patient presents with: Edema - right foot and ankle Initial BP 119/60 Pulse 70 Ht 6' 1.5 (1.867 m) Wt 195 lb 4.8 oz (88.587 kg) BMI 25.42 kg/c6Nbddgzoll Body mass index is 25.42 kg/(m^2) as calculated from the following: Height as of this encounter: 6' 1.5(1.867 m). Weight as of this encounter: 195 lb 4.8 oz(88.587 kg).. BP completed using cuff size: large Errol Galvan MA documented in this encounter Plan of Treatment Not on filedocumented as of this encounter Visit Diagnoses Diagnosis Swelling of extremity, right - Primary Swelling of limb documented in this encounter Care Teams Production Weigher Relationship Specialty Start Date End Date Lurdes Thomas MD PCP - General Internal Medicine 04/12/10 04/03/13 documented as of this encounter
--- OUTSIDE RECORDS SUMMARY | 2021-12-28 12:17 | XMS_ITS | Encounter Summary ---
:1955 Author Organization [facility] Address [address] [place] [address]. [place] [address] Care Team Providers Name Role Phone Lurdes Thomas MD Primary Care Provider Reason for Visit Reason Comments Refill Request lab draw Encounter Details Date Type Department Care Team Description 09/20/2012 Office Visit [facility] Lurdes Thomas Hyperlipi demkatlyn LDL goal < 130 (Primary Dx); Uzair Laughlin MD Parkinson disease (H); [address] [employer] Prediabetes; [place] [address] [place] Screening for diabetes mellitus; [phone] 86[address] [facility] [place] [address] Social History Tobacco Use Types Packs/Day Years [...] Sign Reading Time Taken Comments Blood Pressure 112/62 09/20/2012 8:05 AM CDT Pulse 71 09/20/2012 8:05 AM CDT Temperature 36.5 ??C (97.7 ??F) 09/20/2012 8:05 AM CDT Respiratory Rate - - Oxygen Saturation - - Inhaled Oxygen Concentration - - Weight 82.8 kg (182 lb 8 oz) 09/20/2012 8:05 AM CDT Height - - Body Mass Index 23.75 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 Labs today: cholesterol, diabetes screen, liver function 2. Will refill pravastatin once labs are back 3. Return stool test for colon cancer screening documented in this encounter Progress Notes Lurdes Thomas MD - 09/20/2012 8:07 AM CDT SUBJECTIVE: Andrew Pang is a 57 year old male who presents to clinic today for the following health issues: Hyperlipidemia Follow-Up ?? Following low fat/cholesterol diet?: good ?? Taking Statin or Niaspan? Taking pravastatin ?? Other Supplements?: None 1. HLP: doing well on pravastatin. No side effects. Has lost some weight intentionally. No CP or SOB. Does get some swelling in right ankle at times. Usually at end of the day. Has never injured this ankle, but tends to be ankle that freezes up. 2. Parkinson's: sx have gotten quite a bit worse. Working with Neurology to try to help with sx. Added comtan 6-8 months ago. Recently added short acting sinemet to help with frequent freezing attacks.Sx improve if uses bike regularly, so trying to do this. Dealing with progression of sx ok, but was s tarted on citalopram by neurology at low dose. Thinks this is helping and adequate. Exercise also helps with mood. 3. Back pain: has been controlled. ?? Amount of exercise or daily activities, outside of work: 3-4 day(s) per week, lift weights, bike ?? Problems taking medications regularly No ?? Medication side effects: No ?? Diet: low fat/cholesterol History Substance Use Topics ??? Smoking status: Never Smoker ??? Smokeless tobacco: Never Used ??? Alcohol Use: Yes not often Problem list and histories reviewed & adjusted, as indicated. Additional history: as documented ROS: A 6 point review of systems was obtained and was otherwise negative Problem list, Medication list, Allergies, and Medical/Social/Surgical histories reviewed in [facility] andupdated as appropriate. OBJECTIVE: BP 112/62 Pulse 71 Temp 97.7 ??F (36.5 ??C) (Tympanic) Wt 182 lb 8 oz (82.781 kg) General Appearance: healthy, alert and no distress Eyes: no discharge, erythema. Normal pupils. Neck: Supple. No adenopathy, no asymmetry Respiratory: lungs clear to auscultation - no rales, rhonchi or wheezes. Cardiovascular: regular rate and rhythm, normal S1 S2, no S3 or S4 and no murmur, click or rub. No peripheral edema. Neuro: mask-like facies, some rigid movements Skin: no rashes or lesions. Well perfused and normal turgor. Diagnostic test results: Results for orders placed in visit on 09/20/12 LIPID REFLEX TO DIRECT LDL PANEL Component Value Range Cholesterol 178 0 - 200 mg/dL Triglycerides 83 0 - 150 mg/dL HDL Cholesterol 66 40 - 110 mg/dL LDL Cholesterol Calculated 95 0 - 129 mg/dL VLDL-Cholesterol 17 0 - 30 mg/dL Cholesterol/HDL Ratio 2.7 0.0 - 5.0 COMPREHENSIVE METABOLIC PANEL Component Value Range Sodium 139 133 - 144 mmol/L Potassium 4.6 3.4 - 5.3 mmol/L Chloride 101 94 - 109 mmol/L Carbon Dioxide 31 20 - 32 mmol/L Anion Gap 7 6 - 17 mmol/L Glucose 104 (*) 60 - 99 mg/dL Urea Nitrogen 24 7 - 30 mg/dL Creatinine 0.94 0.66 - 1.25 mg/dL GFR Estimate 83 >60 mL/min/1.7m2 GFR Estimate If Black >90 >60 mL/min/1.7m2 Calcium 8.8 8.5 - 10.4 mg/dL Bilirubin Total 1.0 0.2 - 1.3 mg/dL Albumin 4.1 3.3 - 4.9 g/dL Protein Total 7.0 6.8 - 8.8 g/dL Alkaline Phosphatase 81 40 - 150 U/L ALT 17 0 - 70 U/L AST 54 (*) 0 - 45 U/L ASSESSMENT/PLAN: Hyperlipidemia; controlled Plan: No changes in the patient's current treatment plan 272.4 Hyperlipidemia LDL goal < 130 (primary encounter diagnosis) Plan: Lipid panel reflex to direct LDL, Comprehensive metabolic panel - good control - continue pravastatin - recheck next year 332.0 Parkinson disease Comment: has seen progression Plan: management per Neurology 790.29 Prediabetes Comment: blood sugar 104 Plan: discussed diet/exercise - recheck next year V77.1 Screening for diabetes mellitus V76.51 Screening for colon cancer Plan: Fecal colorectal cancer screen (FIT) Follow up with Provider - 1 year Lurdes Thomas MD [facility] documented in this encounter Nursing Notes 09/20/2012 8:00 AM CDT >> ERROL WARREN [facility] September 20, 2012 8:08 AM Patient presents with: Refill Request - lab draw Initial BP 112/62 Pulse 71 Temp 97.7 ??F (36.5 ??C) (Tympanic) Wt 182 lb 8 oz (82.781 kg) Estimated Body mass index is 23.75 kg/(m^2) as calculated from the following: Height as of 12: 6' 1.5(1.867 m). Weight as of this encounter: 182 lb 8 oz(82.781 kg). BP completed using cuff size: regular Errol Warren MA documented in this encounter Plan of Treatment Not on filedocumented as of this encounter Procedures Procedure Name Priority Date/Time Associated Diagnosis Comme nts LIPID REFLEX TO Routine 09/20/2012 8:17 Hyperlipidemia LDL Res ults for this DIRECT LDL PANEL AM CDT goal < 130 procedure a re in the results section. COMPREHENSIVE Routine 09/20/2012 8:17 Hyperlipidemia LDL Resul ts for this METABOLIC PANEL AM CDT goal < 130 procedure are in Screening for diabetes the r esults mellitus section. documented in this encounter Results (ABNORMAL) Comprehensive metabolic panel (09/20/2012 8:17 AM CDT) P athologist Signature Sodium 139 133 - 144 [facility] mmol/L [facility] Potassium 4.6 3.4 - 5.3 [facility] mmol/L [facility] Chloride 101 94 - 109 [facility] mmol/L [facility] Carbon Dioxide 31 20 - 32 [facility] mmol/L [facility] Anion Gap 7 6 - 17 [facility] mmol/L [facility] Glucose 104 (H) 60 - 99 [facility] mg/dL CLINIC LAB Comment: Fasting specimen Urea Nitrogen 24 7 - 30 mg/dL [facility] Creatinine 0.94 0.66 - 1.25 mg/dL [facility] GFR Estimate 83 >60 mL/min/1.7m2 [facility] GFR Estimate If Black >90 >60 mL/min/1.7m2 [facility] Calcium 8.8 8.5 - 10.4 mg/dL [facility] Bilirubin Total 1.0 0.2 - 1.3 mg/dL [facility] Albumin 4.1 3.3 - 4.9 g/dL [facility] Comment: Reference range changed on 01/21. Protein Total 7.0 6.8 - 8.8 g/dL [facility] Comment: As of 07, reference range reflects plasma specimen type. Alkaline Phosphatase 81 40 - 150 U/L [facility] ALT 17 0 - 70 U/L [facility] LAB AST 54 (H) 0 - 45 U/L [facility] LAB Specimen Anatomical Collection Method Collection Time Receive d Time (Source) Location / / Volume Laterality Blood specimen 09/20/2012 8:17 AM 013 8:22 (specimen) CDT AM CDT Lurdes Thomas MD LAB - BLOOD ORDERABLES Performing Organization Address City/State/ZIP Code Phon e Number [facility] [address] [place] [address] [facility] [address] [place] [address] [phone] Lipid panel reflex to direct LDL (09/20/2012 8:17 AM CDT) athologist Signature Cholesterol 178 0 - 200 [facility] mg/dL CLINIC LAB Comment: LDL Cholesterol is the primary guide to therapy. The NCEP recommends further evaluation of: patients with cholesterol greater than 200 mg/dL if additional risk facto rs are present, cholesterol greater than 240 mg/dL, triglycerides greater than 1 50 mg/dL, or HDL less than 40 mg/dL. Triglycerides 83 0 - 150 mg/dL [facility] HDL Cholesterol 66 40 - 110 mg/dL [facility] LDL Cholesterol Calculated 95 0 - 129 mg/dL [facility] Comment: LDL Cholesterol is the primary guide to therapy: LDL-cholesterol goal in high risk patients is <100 mg/dL and in very high risk patients is <70 mg/dL. VLDL-Cholesterol 17 0 - 30 mg/dL [facility] Cholesterol/HDL Ratio 2.7 0.0 - 5.0 [facility] Specimen Anatomical Collection Method Collection Time Receive d Time (Source) Location / / Volume Laterality Blood specimen 09/20/2012 8:17 AM 013 8:22 (specimen) CDT AM CDT Lurdes Thomas MD LAB - BLOOD ORDERABLES Performing Organization Address City/State/ZIP Code Phon e Number [facility] [address] [place] [address] [facility] [address] [place] [address] [phone] documented in this encounter Visit Diagnoses Diagnosis Hyperlipidemia LDL goal < 130 - Primary Other and unspecified hyperlipidemia Parkinson disease (H) Paralysis agitans Prediabetes Other abnormal glucose Screening for diabetes mellitus Screening for colon cancer Special screening for malignant neoplasm s, colon documented in this encounter Care Teams Grapple Skidder Operator Relationship Specialty Start Date End Date Lurdes Thomas MD PCP - General Internal Medicine 04/12/10 04/03/13 documented as of this encounter
--- OUTSIDE RECORDS SUMMARY | 2021-12-28 12:17 | XMS_ITS | Encounter Summary ---
:1955 Author Organization [place] Address [address] [place] [address]. [place] [address] Care Team Providers Name Role Phone Lurdes Thomas MD Primary Care Provider [phone] Reason for Referral Referral not Required - Closed Specialty Diagnoses / Procedures Referred By Contact Refer red To Contact Diagnoses Cervical radicular pain Francisco Kitchen MD [facility] [address] [place] [address] [address] [facility] [place] [address] AD[address] OFF[address] [place] [address] Phone: [phone] Referral ID Status Reason Start Date Expiration Date Visits Requ ested Visits Authorized [id number] Closed 10/25/2011 04/22/2012 1 1 Reason for Visit Reason Comments Back Pain Encounter Details Date Type Department Care Team Description 10/25/2011 Office Visit [facility] Francisco Kitchen DDD (degene rative disc disease), cervical; Uzair Currie MD Cervical radicular pain [address] [place] [address] [place] [address] [facility]ARNH[facility] [phone] [place] [address] Social History Tobacco Use Types Packs/Day Years [...] Sign Reading Time Taken Comments Blood Pressure 104/66 10/25/2011 10:40 AM CDT Pulse 62 10/25/2011 10:40 AM CDT Temperature 37.2 ??C (98.9 ??F) 10/25/2011 10:40 AM CDT Respiratory Rate - - Oxygen Saturation - - Inhaled Oxygen Concentration - - Weight 85.7 kg (189 lb) 10/25/2011 10:40 AM CDT Height - - Body Mass Index 24.6 07/27/2011 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 Dr Kitchen documented in this encounter Progress Notes Francisco Kitchen MD - 10/25/2011 10:59 AM CDT SUBJECTIVE: Andrew Pang is a 56 year old who presents with neck discomfort. C/o neck discomfort for past 4 weeks Pain is across left shoulder blade and posterior neck--radiates to upper middle back. Pain does not radiate to left forearm or hand. Has prior hx of cervical DDD and prior cervical laminectomy. Minor sx for 1 week, then worse in past few days. Pain worse at night Recently started robaxin-has not helped much. denies fever No hx of trauma, but had been doing a lot of yardwork Taking 800-1000mg ibuprofen few times daily without improvement. ROS: C: NEGATIVE for fatigue, unexpected change in weight R: NEGATIVE for significant cough or shortness of breath CV: NEGATIVE for chest pain GI: NEGATIVE for nausea N: NEGATIVE for weakness, dizziness P: NEGATIVE for changes in mood or affect Patient Active Problem List Diagnoses Code ??? Parkinson disease 332.0M ? ? Hyperlipidemia LDL goal < 130 272.4CV ??? Restless leg syndrome 333.94H Outpatient prescriptions marked as taking for the 10/25/11 encounter (Office Visit) with FRANCISCO KITCHEN: pravastatin (PRAVACHOL) 80 MG tablet Take 1 tablet by mouth daily. Disp: 90 tablet Rfl: 1 methocarbamol (ROBAXIN) 500 MG tablet Take 2 tablets by mouth 3 times daily as needed. Disp: 30 tablet Rfl: 1 sildenafil (VIAGRA) 50 MG tablet Take 1 tablet by mouth daily as needed for erectile dysfunction. Disp: 10 tablet Rfl: 12 rasagiline (AZILECT) 1 MG TABS Take 1 tablet by mouth daily. Disp: Rfl: 0 carbidopa-levodopa (SINEMET CR) 50-200 MG per tablet Take by mouth 2 times daily. Pt unsure of dose Disp: Rfl: ropinirole (REQUIP) 0.5 MG tablet Take 1 tablet by mouth 3 times daily. Disp: Rfl: 1 OBJECTIVE: BP 104/66 Pulse 62 Temp(Src) 98.9 ??F (37.2 ??C) (Oral) Wt 189 lb (85.73 kg) Psych: flat affect NECK: without adenopathy or masses Cspine without midline tenderness. Tender to palpation left lower cervical and upper thoracic paraspinous muscles, trapezius m. RESP: clear to ascultation bilaterally CV: regular S1 S2, without murmur EXTREMITIES: without edema Neuro: DTR's, motor exam upper extrem normal and symmetric b/l ASSESSMENT: 722.4G DDD (degenerative disc disease), cervical 729.2AQ Cervical radicular pain naproxen (NAPROSYN) 500 MG tablet Plan: [facility] PT, HAND, AND CHIROPRACTIC REFERRAL, HYDROcodone-acetaminophen (VICODIN) 5-500 MG per tablet Suspect recurrent radicular pain associated with underlying cervical DDD 1) start physical therapy for stretching, possible cervical traction, US 2) hydrocodone as needed for breakthrough pain 3) naproxen twice per day as needed (antiinflammatory), d/c ibuprofen 4) robaxin as needed for muscle spasm If patient fails to have improvement after a course of physical therapy, should return for follow up. Further imaging studies or orthopedic evaluation at follow up if symptoms persist. documented in this encounter Nursing Notes 10/25/2011 10:30 AM CDT >> GANGA Elaine Oct 25, 2011 10:43 AM Patient presents with: Back Pain Initial BP 104/66 Pulse 62 Temp(Src) 98.9 ??F (37.2 ??C) (Oral) Wt 189 lb (85.73 kg) EstimatedBody mass index is 24.60 kg/(m^2) as calculated from the following: Height as of 07/27/11: 6' 1.5(1.867 m). Weight as of this encounter: 189 lb(85.73 kg).. BP completed using cuff size: papo Phelps CMA documented in this encounter Plan of Treatment Scheduled Referrals Name Type Priority Associated Diagnoses Order S chedule TOREY PT, HAND, AND Referral Routine Cervical radicular Orde red: 10/25/2011 CHIROPRACTIC REFERRAL pain documented as of this encounter Visit Diagnoses Diagnosis DDD (degenerative disc disease), cervica l Degeneration of cervical intervertebral disc Cervical radicular pain Brachial neuritis or radiculitis nos documented in this encounter Care Teams Sap Basis Administrator Relationship Specialty Start Date End Date Lurdes Thomas MD PCP - General Internal Medicine 04/12/10 04/03/13 documented as of this encounter
--- OUTSIDE RECORDS SUMMARY | 2021-12-28 12:17 | XMS_ITS | Encounter Summary ---
:1955 Author Organization [facility] Address [address] [place] [address]. [place] [address] Care Team Providers Name Role Phone Lurdes Thomas MD Primary Care Provider [phone] Reason for Visit Reason Comments Hypertension labs Encounter Details Date Type Department Care Team Description 07/27/2011 Office Visit [facility] Lurdes Thomas (Primary Dx); Uzair Laughlin MD Hyperlipidemia LDL goal < 130; [address] Parkinson disease (H); [place] [address] [place] Screening for diabetes mellitus [phone] [address] [place] [address] Social History Tobacco Use Types [...] Sign Reading Time Taken Comments Blood Pressure 124/70 07/27/2011 10:04 AM BUSINESS ADVISOR Pulse 65 07/27/2011 10:04 AM BUSINESS ADVISOR Temperature 36.3 ??C (97.3 ??F) 07/27/2011 10:04 AM BUSINESS ADVISOR Respiratory Rate - - Oxygen Saturation - - Inhaled Oxygen Concentration - - Weight 87.7 kg (193 lb 6.4 oz) 07/27/2011 10:04 AM BUSINESS ADVISOR Height 186.7 cm (6' 1.5) 07/27/2011 10:04 AM BUSINESS ADVISOR Body Mass Index 25.17 07/27/2011 10:04 AM BUSINESS ADVISOR documented in this encounter Patient Instructions Patient InstructionsLurdes Laughlin MD - 07/27/2011 10:35 AM BUSINESS ADVISOR 1. Labs today: cholesterol, electrolytes, diabetes screen, liver function and kidney function 2. Consider checking blood pressure when get hot/flushed feeling 3. Keep a log of when it happens, how Parkinson's is that day, any increased medications, stress/anxiety level NESS ADVISOR documented in this encounter Progress Notes Lurdes Laughlin MD - 07/27/2011 1:03 PM CST SUBJECTIVE Andrew Pang is a 56 year old male who is here today with flushing of the face: Pt with flushing and warm feeling of the face off and on for past 2-3 months. Occurs about once every 2-3 weeks. Occurs after work and always at 5-6 pm. Usually occurs on days when has been in the office and at the computer all day. Never occurs when out at shows. Usually on days when Parkinson's is not under good control or if stress anxiety. Uses increased carbi-dopa/levo-dopa and ropinirole on those days. Has noticed some flushing with Ropinirole, but this is different. No fevers when this occurs. No other symptoms, otherwise feels well. HLP: changed to pravastatin. No side effects. Needs labs recheck. REVIEW OF SYSTEMS A complete 8 point review of systems of reviewed and negative other than that noted in the HPI Patient Active Problem List Diagnoses Code ??? Parkinson disease 332.0M ? ? Hyperlipidemia LDL goal < 130 272.4CV ??? Restless leg syndrome 333.94H Current outpatient prescriptions ordered prior to encounter: methocarbamol (ROBAXIN) 500 MG tablet Take 2 tablets by mouth 3 times daily as needed. pravastatin (PRAVACHOL) 40 MG tablet Take 1 [...] times daily. No Known Allergies OBJECTIVE BP 124/70 Pulse 65 Temp(Src) 97.3 ??F (36.3 ??C) (Tympanic) Ht 6' 1.5 (1.867 m) Wt 193 lb 6.4 oz (87.726 kg) BMI 25.17 kg/m2 General Appearance: healthy, alert and no distress Eyes: no discharge, erythema. Normal pupils. Respiratory: lungs clear to auscultation - no rales, rhonchi or wheezes. Cardiovascular: regular rate and rhythm, normal S1 S2, no S3 or S4 and no murmur, click or rub. No peripheral edema. Neuro: some rigidity and shuffling gait Skin: no rashes or lesions. Well perfused and normal turgor. DIAGNOSTICS pending ASSESSMENT/PLAN 782.62 Flushing (primary encounter diagnosis) Comment: most likely due to Parkinson's and increased meds on bad days, may also be due to anxiety/stress. Plan: - check BP when feels this way - keep log of when occurring - keep track of severity of Parkinson's that day, increased meds, stress, anxiety - follow-up if new symptoms or worsening 272.4CV Hyperlipidemia LDL goal < 130 Plan: Lipid panel reflex to direct LDL, Comprehensive metabolic panel 332.0M Parkinson disease Comment: flushing likely related to PD meds Plan: management per Neuro V77.1 Screening for diabetes mellitus Plan: Comprehensive metabolic panel A total of 30 minutes was spent with Andrew in clinic today, of which >50% was spent counseling or in coordination of care regarding flushing, Parkinson's, HLP. Lurdes Laughlin MD Internal Medicine/Pediatrics NESS ADVISOR documented in this encounter Nursing Notes 07/27/2011 10:00 AM CST >> ERROL WARREN MonJul 27, 2011 10:07 AM Patient presents with: Blood Pressure - labs Initial BP 124/70 Pulse 65 Temp(Src) 97.3 ??F (36.3 ??C) (Tympanic) Ht 6' 1.5 (1.867 m) Wt 193 lb 6.4 oz (87.726 kg) BMI 25.17 kg/m2 Estimated Body mass index is 25.17 kg/(m^2) as calculatedfrom the following: Height as of this encounter: 6' 1.5(1.867 m). Weight as of this encounter: 193 lb 6.4 oz(87.726 kg).. BP completed using cuff size: large Errol Warren MA documented in this encounter Plan of Treatment Not on filedocumented as of this encounter Procedures Procedure Name Priority Date/Time Associated Diagnosis Comme nts LIPID REFLEX TO Routine 07/27/2011 10:35 Hyperlipidemia LDL Re sults for this DIRECT LDL PANEL AM BUSINESS ADVISOR goal < 130 procedure a re in the results section. COMPREHENSIVE Routine 07/27/2011 10:35 Hyperlipidemia LDL Resu lts for this METABOLIC PANEL AM BUSINESS ADVISOR goal < 130 procedure are in Screening for diabetes the r esults mellitus section. documented in this encounter Results Comprehensive metabolic panel (07/27/2011 10:35 AM BUSINESS ADVISOR) P athologist Signature Sodium 138 133 - 144 [facility] mmol/L [facility] Potassium 4.2 3.4 - 5.3 [facility] mmol/L [facility] Chloride 105 94 - 109 [facility] mmol/L [facility] Carbon Dioxide 21 20 - 32 [facility] mmol/L [facility] Anion Gap 11 6 - 17 [facility] mmol/L [facility] Glucose 99 60 - 99 [facility] mg/dL [facility] Urea Nitrogen 18 7 - 30 [facility] mg/dL [facility] Creatinine 0.80 0.66 - [facility] 1.25 mg/dL [facility] GFR Estimate >90 >60 [facility] mL/min/1.7 [facility] m2 GFR Estimate If >90 >60 [facility] Black mL/min/1.7 [facility] m2 Calcium 9.3 8.5 - 10.4 [facility] mg/dL [facility] Bilirubin Total 0.7 0.2 - 1.3 [facility] mg/dL [facility] Albumin 4.2 3.3 - 4.9 [facility] g/dL [facility] Comment: Reference range changed on 01/21. Protein Total 7.4 6.8 - 8.8 g/dL [facility] Comment: As of 07, reference range reflects plasma specimen type. Alkaline Phosphatase 87 40 - 150 U/L [facility] ALT 20 0 - 70 U/L [facility] AST 35 0 - 45 U/L [facility] Specimen Anatomical Collection Method Collection Time Receive d Time (Source) Location / / Volume Laterality Blood specimen 07/27/2011 10:35 2 (specimen) AM BUSINESS ADVISOR 10:38 AM BUSINESS ADVISOR Lurdes Thomas MD LAB - BLOOD ORDERABLES Performing Organization Address City/State/ZIP Code Phon e Number [facility] [address] [place] [address] [facility] (ABNORMAL) Lipid panel reflex to direct LDL (07/27/2011 10:35 AM BUSINESS ADVISOR) P athologist Signature Cholesterol 236 (H) 0 - 200 [facility] mg/dL CLINIC [facility] Comment: LDL Cholesterol is the primary guide to therapy. The NCEP recommends further evaluation of: patients with cholesterol greater than 200 mg/dL if additional risk facto rs are present, cholesterol greater than 240 mg/dL, triglycerides greater than 1 50 mg/dL, or HDL less than 40 mg/dL. Triglycerides 121 0 - 150 mg/dL [facility] HDL Cholesterol 60 40 - 110 mg/dL [facility] LDL Cholesterol Calculated 152 (H) 0 - 129 mg/dL [facility] Comment: LDL Cholesterol is the primary guide to therapy: LDL-cholesterol goal in high risk patients is <100 mg/dL and in very high risk patients is <70 mg/dL. VLDL-Cholesterol 24 0 - 30 mg/dL [facility] Cholesterol/HDL Ratio 3.9 0.0 - 5.0 [facility] Specimen Anatomical Collection Method Collection Time Receive d Time (Source) Location / / Volume Laterality Blood specimen 07/27/2011 10:35 2 (specimen) AM BUSINESS ADVISOR 10:38 AM BUSINESS ADVISOR Lurdes Thomas MD LAB - BLOOD ORDERABLES Performing Organization Address City/State/ZIP Code Phon e Number [address] [address] [facility] documented in this encounter Visit Diagnoses Diagnosis Flushing - Primary Hyperlipidemia LDL goal < 130 Other and unspecified hyperlipidemia Parkinson disease (H) Paralysis agitans Screening for diabetes mellitus documented in this encounter Care Teams Structural Drafter Relationship Specialty Start Date End Date Lurdes Thomas MD PCP - General Internal Medicine 04/12/10 04/03/13 documented as of this encounter
--- OUTSIDE RECORDS SUMMARY | 2021-12-28 12:17 | XMS_ITS | Encounter Summary ---
:1955 Author Organization [facility] Address [address] [place] [address]. [place] [address] Care Team Providers Name Role Phone Unavailable Primary Care Provider Unavailable Reason for Visit Reason Onset Date Comments Refill Request 11/06/2013 Pravachol Encounter Details Date Type Department Care Team Description 11/06/2013 Refill [facility] Eag an Martha, Lurdes Refill Request 1440 [facility] MD [place] (Pravachol ) [place] [address] [facility] [phone] [address] (Wo rk) Social History Tobacco [...] this encounter Miscellaneous Notes Telephone Encounter - Maki Major RN - 11/27/2013 2:38 PM CDT Unable to reach patient. LMTCB. I called the pharmacy that is listed, and they had already received a refill on the Pravastatin on 11/12/13 by a provider that is not at this clinic. Per encounter of 03/2013-Per patient, he has swtiched to [facility] due to insurance change, no longer seen through the [facility] network. Maame Major RN Telephone Encounter - Sole Cates RN - 11/06/2013 11:56 AM CDT Medication refill request for: pravastatin (PRAVACHOL) 80 MG tablet Sig: Take 1 tablet by mouth daily. Last ordered on: 09/20/2012 Quantity: 90 Refills: 3 Last office visit: 09/20/2012 Recent labs: Recent Labs Lab Test 09/20/12 0817 07/27/11 1035 CHOL 178 236* HDL 66 60 LDL 95 152* TRIG 83 121 CHOLHDLRATIO 2.7 3.9 Patient due for office visit and fasting labs, called to inform, unable to reach, left message to call back to clinic. Sole Cates RN documented in this encounter Plan of Treatment Not on filedocumented as of this encounter Visit Diagnoses Diagnosis Hyperlipidemia LDL goal < 130 Other and unspecified hyperlipidemia documented in this encounter
--- OUTSIDE RECORDS SUMMARY | 2021-12-28 12:17 | XMS_ITS | Encounter Summary ---
:1955 Author Organization [facility] Address [address] [place] [address]. [place] [address] Care Team Providers Name Role Phone Lurdes Thomas MD Primary Care Provider [phone] Encounter Details Date Type Department Care Team Description 03/15/[address] [facility] Lurdes Thomas of [facility] MD [place] extremity, right [address] [facility] [address] [place] [address] [place] [address] Social History Tobacco Use Types [...] Sig Dispensed Refills Start Date End Date carbidopa-levodopa Take 1 tablet by 0 04/12/2010 (SINEMET CR) 50-200 MG per mouth 4 times daily tabletIndications: Takes at 0600 1000 Parkinson disease (H) 1430 1900 pravastatin (PRAVACHOL) 40 Take 1 tablet by 90 tablet 1 05/201004/11/2011 MG tabletIndications: mouth daily. Hyperlipidemia LDL goal < 130 rasagiline (AZILECT) 1 MG Take 1 tablet by 0 03/2306/11/2014 TABSIndications: Parkinson mouth daily. disease (H) ropinirole (REQUIP) 0.5 MG Take 1 tablet by 1 06/11/2014 tabletIndications: mouth 3 times Restless leg daily. sildenafil (VIAGRA) 50 MG Take 1 tablet by 10 tablet 12 09/2002/12/2015 tabletIndications: mouth daily as Erectile dysfunction needed for erectile dysfunction. documented as of this encounter Plan of Treatment Not on filedocumented as of this encounter Procedures Procedure Name Priority Date/Time Associated Diagnosis Comme nts US LOWER EXTREMITY Today 03/15/2011 5:07 PM Swelling of Res ults for this VENOUS DUPLEX RIGHT CDT extremity, right proc edure are in the results section. documented in this encounter Results US Venous lower extrem rt (03/15/2011 5:07 PM CDT) Anatomical Region Laterality Modality Vascular, Leg Ultrasound Specimen (Source) Anatomical Collection Method Collection Time Re ceived Time Location / / Volume Laterality 03/15/2011 5:07 PM CDT Impressions 03/15/2011 5:10 PM CDT US VENOUS LOWER EXTEMITY UNI RIGHT Feb 202010 5:07:00 PM HISTORY: Right leg swelling. FINDINGS: Right common femoral, superfic ial femoral, and popliteal veins are well seen and appear normal. T hey have normal patency and compressibility. Deep veins of the calf are well seen and appear normal. No evidence for deep venous thro mbosis. IMPRESSION: Normal right lower extremity venous Doppler. Lurdes Thomas MD IMG US ORDERABLES documented in this encounter Visit Diagnoses Diagnosis Swelling of extremity, right Swelling of limb documented in this encounter Care Teams Test Administrator Relationship Specialty Start Date End Date Lurdes Thomas MD PCP - General Internal Medicine 04/12/10 04/03/13 documented as of this encounter
--- OUTSIDE RECORDS SUMMARY | 2021-12-28 12:17 | XMS_ITS | Encounter Summary ---
:1955 Author Organization [facility] Address [address] [place] [address]. [place] [address] Care Team Providers Name Role Phone Lurdes Thomas MD Primary Care Provider [phone] Reason for Visit Reason Onset Date Comments Results 10/20/2010 Encounter Details Date Type Department Care Team Description 10/20/2010 Telephone [facility] Lurdes Rojas, Results 1440 [facility] [place] [address] [facility] [phone] [address] [place], [place] [address] (Wo rk) Social History Tobacco Use [...] Notes Telephone Encounter - Lurdes Laughlin - 10/20/2010 10:58 AM CDT Discussed medication options at last visit. Rx for pravastatin sent to pharmacy and letter with labssent. Lurdes Laughlin MD Internal Medicine/Pediatrics documented in this encounter Plan of Treatment Not on filedocumented as of this encounter Visit Diagnoses Diagnosis Hyperlipidemia LDL goal < 130 - Primary Other and unspecified hyperlipidemia documented in this encounter Care Teams Freight Router Relationship Specialty Start Date End Date Lurdes Thomas MD PCP - General Internal Medicine 04/12/10 04/03/13 documented as of this encounter
--- OUTSIDE RECORDS SUMMARY | 2021-12-28 12:17 | XMS_ITS | Encounter Summary ---
:1955 Author Organization [facility] Address [address] [place] [address]. [place] [address] Care Team Providers Name Role Phone Lurdes Thomas MD Primary Care Provider [phone] Reason for Visit Reason Onset Date Comments Chronic Care Conference Provider Overview 12/29/2010 Encounter Details Date Type Department Care Team Description 12/29/2010 Telephone [facility] Lurdes Oh Chronic Care Conference 1440 [facility] MD [place] Provider Overview [place] [address] [facility] [phone] [address] (Wo rk) Social History Tobacco Use [...] this encounter Miscellaneous Notes Telephone Encounter - Kelsea Guevara - 12/29/2010 11:39 AM CDT Pt states he has received test and will mail it once completed, pt states he hasn't had time. Telephone Encounter - Lurdes Laughlin MD - 12/29/2010 11:27 AM CDT Please call patient and remind to return stool blood testing for screening for colon cancer (Fit testing) as discussed at visit in 09/2010. Lurdes Nam MD Internal Medicine/Pediatrics documented in this encounter Plan of Treatment Not on filedocumented as of this encounter Visit Diagnoses Not on filedocumented in this encounter Care Teams Human Resources Assistant Manager Relationship Specialty Start Date End Date Lurdes Thomas MD PCP - General Internal Medicine 04/12/10 04/03/13 documented as of this encounter
== END 2021-12-02 10:07 | disposition home or self-care (01) ==
PROVIDERS: PCP Family Medicine; Visit Provider Surgery
DX: K21.9 Gastro-esophageal reflux disease without esophagitis (principal); K57.30 Diverticulosis of large intestine without perforation or abscess without bleeding; Z93.4 Other artificial openings of gastrointestinal tract status
CPT/HCPCS: 74270

== ENCOUNTER 2021-12-07 14:16 | Outpatient (CLI) | payer BC, SELFPAY ==
[2021-12-07 16:10] LABS: Albumin* 4.1 g/dL (3.3-5.0)
[2021-12-07 16:11] LABS: Chloride* 101 mmol/L (96-114); Potassium* 4.2 mmol/L (3.6-5.1); Sodium* 139 mmol/L (135-149)
[2021-12-07 16:13] LABS: Alanine Aminotransferase* 7 U/L (4-50); Alkaline Phosphatase* 64 U/L (40-150); Aspartate Amino Transferase* 24 U/L (12-35); Bilirubin Total* 0.5 mg/dL (0.1-1.5); Blood Urea Nitrogen* 22 mg/dL (7-30); Carbon Dioxide* 32 mmol/L (20-32); Cholesterol* 166 mg/dL (90-199); Creatinine* 0.8 mg/dL (0.5-1.5); Estimated Glomerular Filt Rate 98 ml/min; Glucose* 92 mg/dL (60-115); Total Protein* 6.2 g/dL (6.0-8.3)
[2021-12-07 16:14] LABS: Calcium* 9.2 mg/dL (8.4-10.6); HDL Cholesterol* 67 mg/dL (>=40); LDL Cholesterol Calculated 69 mg/dL (<100); Triglycerides* 149 mg/dL (40-149)
[2021-12-07 16:31] LABS: Vitamin D 25 Hydroxy* 59 ng/mL (30-80)
[2021-12-07 16:49] LABS: Ferritin* 24.4 ng/mL (17.9-464.0)
[2021-12-07 17:23] LABS: Vitamin B12* > 1000 pg/mL (243-894)
--- OUTSIDE RECORDS SUMMARY | 2021-12-28 17:59 | XMS_ITS | Encounter Summary ---
:1955 Author Organization [facility] Address [address], [place] [address] Care Team Providers Name Role Phone Samantha Stauffer MD Primary Care Provider [phone] Reason for Visit Procedure/Equipment (Routine) - Incomplete Specialty Diagnoses / Procedures Referred By Contact Refer red To Contact Diagnoses Parkinson's disease ([facility]) Dysphagia, unspecified type Sylvester, Maria Esther Amaro MD Procedures FL Video Swallow Study [address] [place], [place] [address] Referral ID Status Reason Start Date Expiration Date Visits V isits Requested Authorized [id number] Incomplete 11/04/2020 02/03/2022 1 1 Encounter Details Date Type Department Care Team Description 11/19/2020 Ancillary [facility], Pre-procedura l laboratory examination (Primary Dx); Procedure [facility] Maria Esther Amaro MD Parkinson's disease ([facility]); Radiology Fluoro [address] [place] Dysphagia, unspecified type [address] [place] [address] [place], [place] [phone] [address] Social History Tobacco Use Types Packs/Day Years [...] CDT EXAM: [place] VIDEO SWALLOW STUDY LOCATION: [facility] DATE/TIME: 11/19/2020 11:56 AM INDICATION: [...] original. EXAM: FL VIDEO SWALLOW STUDY LOCATION: [facility] DATE/TIME: 11/19/2020 11:56 AM INDICATION: [...] dose documented in this encounter Care Teams Mri Technician Relationship Specialty Start Date End Date Samantha Stauffer MD PCP - General Family Practice 12/12/191999 [place] [address] documented as of this encounter
--- OUTSIDE RECORDS SUMMARY | 2021-12-28 17:59 | XMS_ITS | Encounter Summary ---
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
--- OUTSIDE RECORDS SUMMARY | 2021-12-28 17:59 | XMS_ITS | Clinical Summary ---
:1955 Author Organization [facility] Address [address] [place] [address] Care Team Providers Name Role Phone Samantha Stauffer MD Primary Care Provider [phone] Source Comments You are receiving this document [...] for each transition of care or referral. [email or web address] No known active allergies Medications Medication [...] Comments Hep C Screening (Preventive 1955 Services) COVID-19 Vaccine (#1) 1955 FIT Colon Cancer Screening 2000 Zoster/Shingles (1 of 2) 2006 Adult Preventive Visit 01/28/2015 01/28/2014 Cholesterol 01/28/2019 01/28/2014, 08/17/2009 Pneumococcal 65+ Yrs (1 - 2021 PCV) Influenza (#1) 2022 03/11/2021, 05/05/2009 DTaP/Tdap/Td (4 - Tdap) 06/02/2027 06/02/2017, 05/22/2007, 05/22/2007, Additional history exists HepA Aged Out No longer eligib le based on patient 's age to complete this topic HepB Aged Out No longer eligib le based [...] this topic Medical Devices Implanted Type Area Aerotriangulation Specialist Device Shelf Model / Identifier Expiration Serial / Date Lot [employer] - [id number] DEVICE Right: [employer]onic - 2020 [id number] / Implanted: Qty: 1 on 12/12/2019 by Jorge L Kaiser MD at [facility] Neurological [id number] / NA Insurance Payer Benefit Plan / Subscriber ID Effective Dates Phone Addre ss Type Group MEDICARE MEDICARE PART [id number] 2018-Dong [phone] Medicare A t 27 BCBS BCBS OUT OF [id number] 2017-Ignacio [address] [address] [place] [address] [address] [place] [address] Andrew Pang Personal/Famil Self 1955 [address] [place] [address] [address] Andrew Pang Personal/Famil Self 1955 [address]) [facility] [place] [address] Advance Directives Latest Code Status on File Code Status Date Activated Date Inactivated Comments Full Code 12/12/2019 8:30 AM 12/12/2019 9:48 PM Care Teams Funeral Driver Relationship Specialty Start Date End Date Samantha Stauffer MD PCP - General Family Practice 12/12/191999 [place] [address]
--- OUTSIDE RECORDS SUMMARY | 2021-12-28 17:59 | XMS_ITS | Encounter Summary ---
:1955 Author Organization [facility] Address [address] [place] [address] Care Team Providers Name Role Phone Samantha Stauffer MD Primary Care Provider [phone] Encounter Details Date Type Department Care Team Description 02/09/2021 Notes/Orders [facility] Neuroscience [facility] S[facility] Center Speech Therap y [address] [place] [id number] [place] [address] [phone] Social History Tobacco Use Types Packs/Day Years Used Date Smoking Tobacco: Never Smokeless Tobacco: Never Alcohol Use Standard Drinks/Week Comments Not Currently 0 (1 standard drink = 0.6 oz pure alcoho l) Sex Assigned at Date Recorded Not on file documented as of this encounter Progress Notes Mesfin Morgan SLP - 02/09/2021 10:30 AM CDT SPEECH THERAPY DISCHARGE NOTE Andrew Pang [phone] Payor: [facility] / Plan: [facility] OUT OF STATE / Product Type: Commercial [...] in this encounter Care Teams Auto Body Customizer Relationship Specialty Start Date End Date Samantha Stauffer MD PCP - General Family Practice 12/12/191999 [place] [address] documented as of this encounter
--- OUTSIDE RECORDS SUMMARY | 2021-12-28 17:59 | XMS_ITS | Encounter Summary ---
:1955 Author Organization Formerly [facility], [facility] Address [address] [place] [address] Care Team Providers Name Role Phone Samantha Stauffer MD Primary Care Provider [phone] Reason for Visit Reason Comments Prior Authorization Request Amantadine HCl ER (GOCOVRI ) 137 MG CP24 Encounter Details Date Type Department Care Team Description 10/14/2021 [facility]phone [facility] Prior A flhorization [facility] MD Prem Request (Amantadine Neurology [address] HCl ER (GOCOVRI) [address] MG CP24) [place] [address] [place], [place] [phone] Social History Tobacco Use Types Packs/Day Years Used Date Smoking Tobacco: Never Smokeless Tobacco: Never Alcohol Use Standard Drinks/Week Comments Not Currently 0 (1 standard drink = 0.6 oz pure alcoho l) Sex Assigned at Date Recorded Not on file documented as of this encounter Nursing Notes Chloé Denny - 10/14/2021 2:35 PM CDT Approved Prior authorization approved Payer: [facility] CaseId:[id number];Status:Approved;Review Type:Prior Auth;Coverage Start Date:09/14/2021;Coverage End Date:10/14/2022; Approval Details Authorized from September 14, 2021 to October 14, 2022 Chloé Denny - 10/14/2021 1:09 PM CDT ePA requested through [facility]. Chloé Denny 10/14/2021, 1:09 PM Sylvia Burgess - 10/14/2021 9:10 AM CDT There is an approval through October 27 Recd fax from [employer], Please initiate new PA- Amantadine HCl ER (GOCOVRI) 137 MG CP24 Please see the providers right fax folder to review the fax for this TE. Sylvia Burgess 10/14/2021, 9:10 AM documented in this encounter Plan of Treatment Not on filedocumented as of this encounter Visit Diagnoses Not on filedocumented in this encounter Care Teams Residential Appraiser Relationship Specialty Start Date End Date Samantha Stauffer MD PCP - General Family Practice 12/12/191999 [place] [address] documented as of this encounter
--- OUTSIDE RECORDS SUMMARY | 2021-12-28 17:59 | XMS_ITS | Encounter Summary ---
:1955 Author Organization [facility] Address [address], [place] [address] Care Team Providers Name Role Phone Samantha Stauffer MD Primary Care Provider [phone] Reason for Visit Reason Comments Medication Questions Encounter Details Date Type Department Care Team Description 06/11/2021 Telephone [facility] Doris Arauz sign writer letterer or painter Questions [address] [place] [address] Social History Tobacco Use Types Packs/Day [...] left again. Chloé Denny 06/16/2021, 1:21 PM UP MACHINE OPERATOR Chloé Denny - 06/14/2021 3:32 PM CST RN called pt to advise him to call Russell Sanjeev Boyer back regarding his rx. No answer. Detailed voicemail left. Chloé Denny 06/14/2021, 3:33 PM UP MACHINE OPERATOR Doris Arauz RN - 06/11/2021 1:55 PM CST NSC pt. [facility] called because they are in need of more information to contact the patient. They have attempted 5 times with not luck. They are requesting a call back at [phone] UP MACHINE OPERATOR documented in this encounter Plan of Treatment Not on filedocumented as of this encounter Visit Diagnoses Not on filedocumented in this encounter Care Teams It Support Analyst Relationship Specialty Start Date End Date Samantha Stauffer MD PCP - General Family Practice 12/12/191999 [place] [id number] documented as of this encounter
--- OUTSIDE RECORDS SUMMARY | 2021-12-28 17:59 | XMS_ITS | Encounter Summary ---
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) At risk for falling Maria Esther Phan MD [address] [place], [place] [address] Referral ID Status Reason Start Date Expiration Date Visits Requ ested Visits Authorized [id number] Closed 11/13/2020 11/13/2021 1 1 Encounter Details Date Type Department Care Team Description 12/04/2020 Therapy [facility] Carlos Cartwright, Prema n's disease (HRC) (Primary Dx); [facility] PT Impaired functional mobility, balance, g ait, and endurance Physical Therapy [address] [address] [phone] Social History Tobacco Use Types Packs/Day Years [...] discussion mentioned that they live close to [place] and it would be very difficult to attend physical therapy at this facility on a weekly to bi-weekly basis. After long discussion with patient and his , decision had been made for them to call [facility] and request a physical therapist that is certified in the [employer] program that could effectively treat patient with less stress on family (reducing driving). Did educate patient on different Parkinson's classes in the community, our [facility] PD programs and on [facility] program. Patient and his were satisfied [...] Name Type Priority Associated Diagnoses Order S [facility] Physical Therapy Referral Routine Parkinson's dis ease (HRC) Ordered: 11/13/2020 Dysphagia, unspe cified type Dyskinesia due to Parkinson' s disease (HRC) At risk for falling documented as of this encounter Visit Diagnoses Diagnosis Parkinson's disease (HRC) - Primary Impaired functional mobility, balance, g ait, and endurance documented in this encounter Care Teams Spreading Machine Operator Relationship Specialty Start Date End Date Samantha Stauffer MD PCP - General Family Practice 12/12/191999 [place] [address] documented as of this encounter
--- OUTSIDE RECORDS SUMMARY | 2021-12-28 17:59 | XMS_ITS | Encounter Summary ---
:1955 Author Organization [facility] Address [address] [place] [address] Care Team Providers Name Role Phone Samantha Stauffer MD Primary Care Provider [phone] Reason for Visit Reason Comments QUESTIONS, GENERAL Battery Encounter Details Date Type Department Care Team Description 12/07/2020 Telephone [facility] Brower, GENERAL [facility] MD Prem (Battery ) Neurology 39[address] [facility] [address] [place] [address] [place], [place] [phone] (Wo rk) Social History Tobacco Use Types Packs/Day Years Used Date Smoking Tobacco: Never Smokeless Tobacco: Never Alcohol Use Standard Drinks/Week Comments Not Currently 0 (1 standard drink = 0.6 oz pure alcoho l) Sex Assigned at Date Recorded Not on file documented as of this encounter Nursing Notes Chloé Denny - 12/09/2020 3:53 PM CDT RN called pt's spouse back (ph. [phone]) to relay Dr. Phan' recommendations. Verbalizes understanding and they will adjust pt's RYTARY to tid first. RN also sent recommendations via [employer] message. Encouraged to call back with any [...] on filedocumented in this encounter Care Teams Community Services Manager Relationship Specialty Start Date End Date Samantha Stauffer MD PCP - General Family Practice 12/12/191999 [place] [address] documented as of this encounter
--- OUTSIDE RECORDS SUMMARY | 2021-12-28 17:59 | XMS_ITS | Encounter Summary ---
:1955 Author Organization [facility] Address [address] [place] [address] Care Team Providers Name Role Phone Samantha Stauffer MD Primary Care Provider [phone] Reason for Referral Procedure/Equipment (Routine) - New Request Specialty Diagnoses / Procedures Referred By Contact Refer red To Contact Diagnoses Dysphagia, oropharyngeal phase Parkinson's disease (HRC) Hypokinetic Parkinsonian dysphonia (HRC) [place] [address] [place] [phone] Referral ID Status Reason Start Date Expiration Date Visits V isits Requested Authorized [id number] New Request 11/19/2020 02/18/2022 20 20 Scheduling Instructions . Reason for Visit Therapies (Routine) - Closed Specialty Diagnoses / Procedures Referred By Contact Refer red To Contact Diagnoses Parkinson's disease (HRC) Dysphagia, unspecified type Maria Esther Phan MD [address] [place] [address] [phone] Referral ID Status Reason Start Date Expiration Date Visits Requ ested Visits Authorized [id number] Closed 10/28/2020 10/28/2021 999 999 Encounter Details Date Type Department Care Team Description 11/19/2020 Office Visit [facility] Fong, Dysphagia, o ropharyngeal phase (Primary Dx); [facility] INSPECTOR MECHANICAL Parkinson's disease (HRC); Speech Therapy [address] [place] [address] Hypokinetic Parkinsonian dysphonia (HRC) [address] [place] [id number] [address] [place] [address] [phone] Social History Tobacco Use Types Packs/Day Years [...] reach out to you soon. JB Samuels [facility] -- [facility] Licensed Speech Language Pathologist -- Outpatient appointments [...] set to have EGD done tomorrow in [place], [place]. Hopefully this will lead to a [...] a regular diet with thin liquids [employer] Insurance Info: Today's Visit Number: 1 Progress [...] to IDDSI liquid framework: Davina Alegria, Mapping [employer] Varibar Barium Products to the IDDSI Framework. IDDSI website. ht tps://iddsi.org/IDDSI/media/images/Publications/Vuadece-Enkebnp-mu-IDDSI-Framewo rk.pdf. October 2016. Varibar Thin 40% IDDSI Level 0-Thin Varibar [place] 40% IDDSI Level 2-Mildly Thick Varibar Thin [...] Dysphonia documented in this encounter Care Teams Surface Boss Relationship Specialty Start Date End Date Samantha Stauffer MD PCP - General Family Practice 12/12/191999 [place] [address] documented as of this encounter
--- OUTSIDE RECORDS SUMMARY | 2021-12-28 17:59 | XMS_ITS | Encounter Summary ---
:1955 Author Organization [facility] Address [address], [place] [address] Care Team Providers Name Role Phone Samantha Stauffer MD Primary Care Provider [phone] Reason for Visit Reason Comments Refill Encounter Details Date Type Department Care Team Description 05/18/2021 Refill [facility] Neuroscience Maria Esther Reis MD Refill Center Neurology [address] [facility] [address] [facility] [place] [address] [place] [address] [phone] Social History Tobacco Use Types Packs/Day Years [...] on filedocumented in this encounter Care Teams Restaurant Lead Relationship Specialty Start Date End Date Samantha Stauffer MD PCP - General Family Practice 12/12/191999 [place] [address] documented as of this encounter
--- OUTSIDE RECORDS SUMMARY | 2021-12-28 17:59 | XMS_ITS | Encounter Summary ---
:1955 Author Organization [facility] Address [address] [place] [address] Care Team Providers Name Role Phone Samantha Stauffer MD Primary Care Provider [phone] Reason for Visit Reason Comments RELEASE OF RECORDS Encounter Details Date Type Department Care Team Description 12/15/2020 Telephone [facility] Maria Esther Phan RELEASE OF RECORDS [facility] MD Prem Neurology [address] [phone] (Wo rk) Social History Tobacco Use Types [...] original note were not included. Records from [facility] received and sent to scanning. Kelly Encarnacion CMA 12/15/2020, 2:19 PM documented in this encounter Plan of Treatment Not on filedocumented as of this encounter Visit Diagnoses Not on filedocumented in this encounter Care Teams Cinnamon Grinder Relationship Specialty Start Date End Date Samantha Stauffer MD PCP - General Family Practice 12/12/191999 [place] [address] documented as of this encounter
--- OUTSIDE RECORDS SUMMARY | 2021-12-28 17:59 | XMS_ITS | Encounter Summary ---
:1955 Author Organization [facility] Address [address], [place] [address] Care Team Providers Name Role Phone Samantha Stauffer MD Primary Care Provider [phone] Encounter Details Date Type Department Care Team Description 12/21/2020 [facility] Princess Phan, [place] [facility] [address] [place] [address] [place] [address] [phone] (Wo rk) Social History Tobacco Use Types [...] with PT. Chloé Denny 12/25/2020, 9:02 AM Maria Esther Phan MD - 12/24/2020 2:59 PM [...] info edited w/ current number : ph. [phone]) Natasha reports that since decreasing RYTARY to [...] addressed first. Pt has an appt with [facility] in [place] tomorrow (12/25) as well as a f/u [...] disconnected. Number is disconnected. RN sent a apprupt message encouraging them to give us a call. Chloé Denny 12/22/2020, 4:19 PM Chloé Denny - 12/21/2020 3:55 PM CDT RN attempted to call Natasha back 2 x @ . [phone] and line was disconnected (message states destination not assigned). Then called . [phone], no answer. [facility] Chloé Denny 12/21/2020, 3:57 PM Maria Esther [...] on filedocumented in this encounter Care Teams Crossbar Frame Wirer Relationship Specialty Start Date End Date Samantha Stauffer MD PCP - General Family Practice 12/12/191999 [place] [address] documented as of this encounter
--- OUTSIDE RECORDS SUMMARY | 2021-12-28 17:59 | XMS_ITS | Encounter Summary ---
:1955 Author [facility] Address [address] [place] [address] Care Team Providers Name Role Phone Samantha Stauffer MD Primary Care Provider [phone] Reason for Visit Reason Comments Medication Questions Encounter Details Date Type Department Care Team Description 12/30/2020 Telephone [facility] Esther Walker Medicat ion Questions [facility] MD Prem Neurology 39[address] [facility] [address] [place] [address] [place], [place] [phone] (Wo rk) Social History Tobacco Use Types Packs/Day Years Used Date Smoking Tobacco: Never Smokeless Tobacco: Never Alcohol Use Standard Drinks/Week Comments Not Currently 0 (1 standard drink = 0.6 oz pure alcoho l) Sex Assigned at Date Recorded Not on file documented as of this encounter Nursing Notes Maria Esther Pahn MD - 12/30/2020 4:34 PM CDT Called [...] parkinson's. Dr. Thompson can be reached at [phone]. Thank you documented in this encounter Plan of Treatment Not on filedocumented as of this encounter Visit Diagnoses Not on filedocumented in this encounter Care Teams Sales Development Manager Relationship Specialty Start Date End Date Samantha Stauffer MD PCP - General Family Practice 12/12/191999 [place] [address] documented as of this encounter
--- OUTSIDE RECORDS SUMMARY | 2021-12-28 17:59 | XMS_ITS | Encounter Summary ---
:1955 Author Organization [facility] Address [address] [place] [address] Care Team Providers Name Role Phone Samantha Stauffer MD Primary Care Provider [phone] Encounter Details Date Type Department Care Team Description 07/14/2021 Telephone [facility] Princess Phan, Center Neurology [address] [place] [address] [place] [address] [phone] (Wo rk) Social History Tobacco Use Types [...] verbalizes understanding. Chloé Denny 07/16/2021, 5:09 PM NSIC IDENTIFICATION SPECIALIST Doris Slaughter RN - 07/16/2021 4:43 PM CST RN looked at RX, PA approval through 10/2021. Doris Slaughter RN 07/16/2021, 4:44 PM NSIC IDENTIFICATION SPECIALIST Karin Dill - 07/16/2021 4:39 PM CST Pt calling stating they need a PA for this rx, please advise, thanks! Karin Dill 07/16/2021, 4:40 PM NSIC IDENTIFICATION SPECIALIST Chloé Denny - 07/16/2021 2:05 PM CST Prescription form not necessary. RN spoke with pharmacy this morning and gave verbal. Sheldon Merlos - 07/16/2021 1:06 PM CST Images from the original note were not included. Recd universal prescription/ pharmacy intake [facility] Placed in providers right fax Sheldon Mays 07/16/2021, 1:07 PM NSIC IDENTIFICATION SPECIALIST Chloé Denny - 07/16/2021 9:31 AM CST RN called [facility] (ph. [phone]) to give additional information per pt request [...] please call Cristhian Dueñas 07/14/2021, 12:13 PM NSIC IDENTIFICATION SPECIALIST documented in this encounter Plan of Treatment Not on filedocumented as of this encounter Visit Diagnoses Not on filedocumented in this encounter Care Teams Driller Machine Relationship Specialty Start Date End Date Samantha Stauffer MD PCP - General Family Practice 12/12/191999 [place] [address] documented as of this encounter
--- OUTSIDE RECORDS SUMMARY | 2021-12-28 18:00 | XMS_ITS | Encounter Summary ---
:1955 Author Organization [facility] Address [address], [place] [address] Care Team Providers Name Role Phone Lurdes Thomas MD Primary Care Provider Reason for Visit Reason Onset Date Comments Refill 08/01/2019 Encounter Details Date Type Department Care Team Description 08/01/2019 Refill [facility] Neuroscience Maria Esther Reis MD Refill Center Neurology 3931 [facility] [address] [place] [address] [place] [address] [phone] Social History Tobacco Use Types Packs/Day Years [...] at bedtime Qty: 60 Last Refill: 07/08/2019 Esthetic Dermatologist/Appt Center: Was the pharmacy entered into the Preferred Pharmacy field? Yes Abi Laughlin 08/01/2019, 10:31 AM documented in this encounter Plan of Treatment Not on filedocumented as of this encounter Visit Diagnoses Not on filedocumented in this encounter Care Teams Head Turning Machine Operator Relationship Specialty Start Date End Date Lurdes Thomas MD PCP - General 06/18/14 12/11/19 documented as of this encounter
--- OUTSIDE RECORDS SUMMARY | 2021-12-28 18:00 | XMS_ITS | Encounter Summary ---
:1955 Author Organization [email or web address] Address [address] [place] [address] Care Team Providers Name Role Phone Lurdes Thomas MD Primary Care Provider Reason for Visit Reason Comments Prior Authorization Request Encounter Details Date Type Department Care Team Description 09/11/2018 Telephone [employer] Maria Esther Phan [facility] MD Prem Request Neurology 39[address] [facility] [address] [facility] [place] [address] [place], [place] [phone] Social History Tobacco Use Types Packs/Day Years [...] PA was approved from 08/14/18 to 09/13/19. PA#[id number] Called [employer] and told them PA was approved. They will expedite shipping and get to pt by Monday. [facility] Abi Laughlin - 09/13/2018 4:41 PM CDT Patient's spouse called regarding below message She can be contacted at [phone] - spouse's number or her own number [phone] Abi Laughlin 09/13/2018, 4:42 PM Maria Esther Phan MD - 09/13/2018 3:46 PM CDT Jeannette, I went to the website, will not allow me to start an account as I apparently already have on, I asked for a password reset, and received no e-mail to reset. I called this agency ([facility] -whomever they might be) and they told [...] create an account. Is this OK todo? eYnny Ray - 09/11/2018 4:47 PM CDT PA needed for Gocovri 137 mg ER capsules 1. Go to [employer] and click Enter a Ann 2. Enter the pt's Last name, and the Ann Ann: [id number] Pt's Last name: Poly : 1955 3. Complete th form and click: Send to Plan for approval documented in this encounter Plan of Treatment Not on filedocumented as of this encounter Visit Diagnoses Not on filedocumented in this encounter Care Teams Outside Sales Executive Relationship Specialty Start Date End Date Lurdes Thomas MD PCP - General 06/18/14 12/11/19 documented as of this encounter
--- OUTSIDE RECORDS SUMMARY | 2021-12-28 18:00 | XMS_ITS | Encounter Summary ---
:1955 Author Organization [facility] Address [address] [address] Care Team Providers Name Role Phone Lurdes Thomas MD Primary Care Provider Reason for Referral Consult/Transfer Care (Routine) - Closed Specialty Diagnoses / Procedures Referred By Contact Refer red To Contact Neurosurgery Diagnoses Parkinson's disease (HRC) Maria Esther Phan MD McIver, Jon I, MD [address] [facility] [address] [place], [place] [address] [place] [address] Fax: Referral ID Status Reason Start Date Expiration Date Visits Requ ested Visits Authorized [id number] Closed 11/13/2019 02/11/2021 1 1 Scheduling Instructions [facility] provider [facility] You may call [phone], option 2 to schedule your appointment. We suggest you call your health insurance breanna about your coverage and benefits for this appointment. Reason for Visit Reason Comments FYI DBS battery Encounter Details Date Type Department Care Team Description 11/13/2019 Telephone Maria Esther Mckeon (DB S battery) [facility]science Center MD Prem Neurology [address] [facility] [address] [place] [address] [phone] (Wo rk) Social History Tobacco Use Types [...] him if he mixed systems (I.egot a Spel[employer] Sci battery, with Medtronic lead) this is [...] to call and schedule the battery replacement. [place] nursing, can you facilitate with Dr. Kaiser's [...] Primary documented in this encounter Care Teams Education And Training Manager Relationship Specialty Start Date End Date Lurdes Thomas MD PCP - General 06/18/14 12/11/19 documented as of this encounter
--- OUTSIDE RECORDS SUMMARY | 2021-12-28 18:00 | XMS_ITS | Encounter Summary ---
:1955 Author Organization [facility] Address [address] [place] [address] Care Team Providers Name Role Phone Lurdes Thomas MD Primary Care Provider Reason for Visit Reason Comments Refill Encounter Details Date Type Department Care Team Description 06/03/2019 Refill [facility] Neuroscience Maria Esther Reis MD Refill Center Neurology 39[address] [facility] [address] [place] [address] [place] [address] [phone] Social History Tobacco Use Types Packs/Day Years Used Date Smoking Tobacco: Never Smokeless Tobacco: Never Alcohol Use Standard Drinks/Week Comments Yes 0 (1 standard drink = 0.6 oz pure alcoho l) Sex Assigned at Date Recorded Not on file documented as of this encounter Nursing Notes Rachel Brown RN - 06/03/2019 1:11 PM CST Incorrect provider. Rachel Brown RN R CLEANER documented in this encounter Plan of Treatment Not on filedocumented as of this encounter Visit Diagnoses Not on filedocumented in this encounter Care Teams Erp Business Analyst Relationship Specialty Start Date End Date Lurdes Thomas MD PCP - General 06/18/14 12/11/19 documented as of this encounter
--- OUTSIDE RECORDS SUMMARY | 2021-12-28 18:00 | XMS_ITS | Encounter Summary ---
:1955 Author Organization [facility] Address [address], [place] [address] Care Team Providers Name Role Phone Samantha Stauffer MD Primary Care Provider [phone] Reason for Visit Reason Comments Refill Encounter Details Date Type Department Care Team Description 05/24/2020 Refill [facility] Neuroscience Maria Esther Reis MD Refill Center Neurology 39[address] [facility] [address] [facility] [place] [address] [place] [address] [phone] Social History Tobacco Use Types Packs/Day Years [...] on filedocumented in this encounter Care Teams Aviation All Source Intelligence Relationship Specialty Start Date End Date Samantha Stauffer MD PCP - General Family Practice 12/12/191999 [place] [address] documented as of this encounter
--- OUTSIDE RECORDS SUMMARY | 2021-12-28 18:00 | XMS_ITS | Encounter Summary ---
:1955 Author Organization [facility] Address [address] [place] [address] Care Team Providers Name Role Phone Lurdes Thomas MD Primary Care Provider Reason for Visit Reason Onset Date Comments Refill 06/03/2019 Encounter Details Date Type Department Care Team Description 06/03/2019 Refill [facility] Neuroscience Para Maria Esther newberry MD Refill Center Neurology [address] [address] [place] [address] [phone] Social History Tobacco Use Types Packs/Day Years Used Date Smoking Tobacco: Never Smokeless Tobacco: Never Alcohol Use Standard Drinks/Week Comments Yes 0 (1 standard drink = 0.6 oz pure alcoho l) Sex Assigned at Date Recorded Not on file documented as of this encounter Nursing Notes Maria Esther hPan MD - 06/03/2019 4:29 PM CST Citalopram was refilled via [facility]. Abi Bazzi 06/03/2019 1:57 PM CST Refill request: Medication: Citalopram (CELEXA) 10 MG Sig: take 1 tab by mouth daily Qty: 90 tabs Last Refill: not given Television Repairman/Appt Center: Was the pharmacy entered into the Preferred Pharmacy field? Yes Abi Laughlin 06/03/2019, 1:58 PM GRINDER documented in this encounter Plan of Treatment Not on filedocumented as of this encounter Visit Diagnoses Not on filedocumented in this encounter Care Teams Horticulture Superintendent Relationship Specialty Start Date End Date Lurdes Thomas MD PCP - General 06/18/14 12/11/19 documented as of this encounter
--- OUTSIDE RECORDS SUMMARY | 2021-12-28 18:00 | XMS_ITS | Encounter Summary ---
:1955 Author Organization [facility] Address [address] [place] [address] Care Team Providers Name Role Phone Samantha Stauffer MD Primary Care Provider [phone] Reason for Referral Therapies (Routine) - Closed Specialty Diagnoses / Procedures Referred By Contact Refer red To Contact Diagnoses Parkinson's disease (HRC) Dysphagia, unspecified type Maria Esther Phan MD [address] [place], [place] [address] Referral ID Status Reason Start Date Expiration Date Visits Requ ested Visits Authorized [id number] Closed 10/28/2020 10/28/2021 999 999 Scheduling Instructions Your provider has recommended an appoint ment with a [facility] Speech Therapist. Please call for your appointment you may call [facility] Out[facility] Rehabilitation at [phone]. We suggest you call your [facility] insurance company about your coverage and benefits for this appointment. Reason for Visit Reason Comments Pain Stomach and trouble swallowi ng Encounter Details Date Type Department Care Team Description 10/28/2020 [facility] ([facility] MD Prem trouble swallowing) Neurology [facility] [address] [address] [place], [place] [phone] (Wo rk) Social History Tobacco Use Types [...] call and schedule the swallow study (ph. [phone]) Spouse reports that pt went to see a provider at [facility] last (10/29) and was prescribed generic Prilosec. This has been helpful thus far. They also saw pt's PCP this morning (11/04) who is recommending a GI consult. Dr. Phan: Do you have a preferred plastics seasoner operator you would recommend to someone who has [...] (HRC) documented in this encounter Care Teams Egg Producer Relationship Specialty Start Date End Date Samantha Stauffer MD PCP - General Family Practice 12/12/191999 [place] [id number] documented as of this encounter
--- OUTSIDE RECORDS SUMMARY | 2021-12-28 18:00 | XMS_ITS | Encounter Summary ---
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 [address] [place], [place] [phone] Social History Tobacco Use Types Packs/Day Years [...] due to restrictions related to the current floyd virus epidemic. The patient's is in attendance. [...] any sensory deficits. There are no tremors. Lwjwlm-oovg-fmkhhk is accurate. There is mild bradykinesia. He [...] coordination documented in this encounter Care Teams Fast Food Attendant Relationship Specialty Start Date End Date Lurdes Thomas MD PCP - General 06/18/14 12/11/19 documented as of this encounter
--- OUTSIDE RECORDS SUMMARY | 2021-12-28 18:00 | XMS_ITS | Encounter Summary ---
:1955 Author Organization [facility] Address [address] [place] [address] Care Team Providers Name Role Phone Lurdes Thomas MD Primary Care Provider Reason for Visit Reason Comments Concerns Battery getting low Encounter Details Date Type Department Care Team Description 08/28/2019 Telephone [facility] Concern s (Battery [facility] MD Prem getting low) Neurology 3931 [facility] [address] [place] [address] [place], [place] [phone] (Wo rk) Social History Tobacco Use Types [...] 09/13/2019. Please help them set up the [email or web address] madhav. Matt Cates RN 08/28/2019, 3:04 PM [...] on filedocumented in this encounter Care Teams Material Man Relationship Specialty Start Date End Date Lurdes Thomas MD PCP - General 06/18/14 12/11/19 documented as of this encounter
--- OUTSIDE RECORDS SUMMARY | 2021-12-28 18:00 | XMS_ITS | Encounter Summary ---
:1955 [facility] Address [address] [place] [address] Care Team Providers Name Role Phone Samantha Stauffer MD Primary Care Provider Encounter Details Date Type Department Care Team Description 11/20/2019 [facility] 3931 Clementine Kaiser MD Neurosurgery [address] [address] [phone] Social History Tobacco Use Types Packs/Day Years [...] on filedocumented in this encounter Care Teams Earth Science Teacher Relationship Specialty Start Date End Date Samantha Stauffer MD PCP - General Family Practice 12/12/191999 [place] [address] documented as of this encounter
--- OUTSIDE RECORDS SUMMARY | 2021-12-28 18:00 | XMS_ITS | Encounter Summary ---
:1955 Author Organization [facility] Address [address], [place] [address] Care Team Providers Name Role Phone Lurdes Thomas MD Primary Care Provider Reason for Referral (Routine) - Incomplete Specialty Diagnoses / Procedures Referred By Contact Refer red To Contact Diagnoses Parkinson's disease (HRC) Jorge L Kaiser MD Procedures Case Request OR - Neurosurgery: RIGHT DEEP BRAIN STIMULATOR GENERATOR REPLACEMENT [address] [place] [address] Referral ID Status Reason Start Date Expiration Date Visits V isits Requested Authorized [id number] Incomplete 09/18/2019 12/17/2020 1 1 Encounter Details Date Type Department Care Team Description 09/18/2019 [facility] Jorge L Kaiser MD Parkinson's disease 3931 Neurosurgery 3931 [facility] (Primary Dx) 3931 [place] [address] [place] [address] [phone] Social History Tobacco Use Types Packs/Day Years [...] Primary documented in this encounter Care Teams Lna Relationship Specialty Start Date End Date Serum, Lurdes C, MD PCP - General 06/18/14 12/11/19 documented as of this encounter
--- OUTSIDE RECORDS SUMMARY | 2021-12-28 18:00 | XMS_ITS | Encounter Summary ---
:1955 Author Organization [facility] Address [address] [place] [address] Care Team Providers Name Role Phone Samantha Stauffer MD Primary Care Provider [phone] Reason for Referral Procedure/Equipment (Routine) - Incomplete Specialty Diagnoses / Procedures Referred By Contact Refer red To Contact Diagnoses Parkinson's disease (HRC) Dysphagia, unspecified type ParashosMaria Esther MD Procedures [place] Video Swallow Study 3931 [place], [place] [address] Referral ID Status Reason Start Date Expiration Date Visits V isits Requested Authorized [id number] Incomplete 11/04/2020 02/03/2022 1 1 Therapies (Routine) - Closed Specialty Diagnoses / Procedures Referred By Contact Refer red To Contact Diagnoses Parkinson's disease (HRC) Dysphagia, unspecified type ParashoMaria Esther jacques MD 3931 [place], [place] [address] Referral ID Status Reason Start Date Expiration Date Visits Requ ested Visits Authorized [id number] Closed 11/04/2020 11/04/2021 1 1 Scheduling Instructions Your provider has recommended an appoint ment with a [employer] Speech Therapist. Please call for your appointment you may call [facility] at [phone]. We suggest you call your [facility] insurance company about your coverage and benefits for this appointment. Reason for Visit Reason Comments Orders Needed [place] VIDEO SWALLOW STUDY Encounter Details Date Type Department Care Team Description 11/04/2020 Telephone [facility] Maria Esther Phan Orders Needed ([place] [facility] MD Jorden VIDEO SWALLOW STUDY ) Neurology 3931 [facility] [address] [place] [address] [place], [place] [phone] (Wo rk) Social History Tobacco Use Types [...] had done Jun). RN can see the MAGNETIC LOCATER order that requests video swallow study (with radiology and speech, but they need the actual order along with the MAGNETIC LOCATER order. The order is pended. Dr. Phan will need to fill in the missing sections: clinical presentation and clinical history prior to signing. Chloé Denny 11/04/2020, 3:13 PM Maria Esther Phan MD - 11/04/2020 1:28 PM CDT Please notify her, order is in for speech therapy evaluation with swallow study Cory Yenny T - 11/04/2020 1:05 PM CDT [...] CDT EXAM: [place] VIDEO SWALLOW STUDY LOCATION: [facility] DATE/TIME: 11/19/2020 11:56 AM INDICATION: Difficulty [...] original. EXAM: [place] VIDEO SWALLOW STUDY LOCATION: [facility] DATE/TIME: 11/19/2020 11:56 AM INDICATION: Difficulty [...] type documented in this encounter Care Teams Centrifuge Operator Relationship Specialty Start Date End Date Samantha Stauffer MD PCP - General Family Practice 12/12/191999 [place] [address] documented as of this encounter
--- OUTSIDE RECORDS SUMMARY | 2021-12-28 18:00 | XMS_ITS | Encounter Summary ---
:1955 Author Organization [facility] Address [address] [address] Care Team Providers Name Role Phone Samantha Stauffer MD Primary Care Provider [phone] Reason for Visit Reason Comments Labs Needed Encounter Details Date Type Department Care Team Description 11/27/2019 Telephone Specialty Center 393 1 Neurosurgery Aurora Ruiz, RN Labs Needed 3931 [place], [place] [address] Social History Tobacco Use Types Packs/Day Years Used Date Smoking Tobacco: Never Smokeless Tobacco: Never Alcohol Use Standard Drinks/Week Comments Yes 0 (1 standard drink = 0.6 oz pure alcoho l) Sex Assigned at Date Recorded Not on file documented as of this encounter Nursing Notes Aurora Ruiz, RN - 11/27/2019 3:36 PM CDT Covid test ordered. MRSA test ordered and faxed to [facility]. Emailed surgical teaching information. documented in this encounter Plan of Treatment Not on filedocumented as of this encounter Visit Diagnoses Diagnosis Preop testing - Primary Preoperative examination, unspecified documented in this encounter Care Teams Cia Agent Relationship Specialty Start Date End Date Samantha Stauffer MD PCP - General Family Practice 12/12/191999 [place] [address] documented as of this encounter
--- OUTSIDE RECORDS SUMMARY | 2021-12-28 18:00 | XMS_ITS | Encounter Summary ---
:1955 Author Organization [facility] Address [address], [place] [address] Care Team Providers Name Role Phone Lurdes Thomas MD Primary Care Provider Reason for Visit Reason Comments Refill Encounter Details Date Type Department Care Team Description 08/21/2019 Refill [facility] Neuroscience Maria Esther Reis MD Refill Center Neurology 3931 [facility] [address] [place] [address] [place] [address] [phone] Social History Tobacco Use Types Packs/Day Years [...] on filedocumented in this encounter Care Teams Glass Technician Relationship Specialty Start Date End Date Lurdes Thomas MD PCP - General 06/18/14 12/11/19 documented as of this encounter
--- OUTSIDE RECORDS SUMMARY | 2021-12-28 18:00 | XMS_ITS | Encounter Summary ---
:1955 Author Organization [facility] Address [address] [address] Care Team Providers Name Role Phone Lurdes Thomas MD Primary Care Provider Reason for Visit Reason Comments QUESTIONS, GENERAL MRI and DBS Encounter Details Date Type Department Care Team Description 10/22/2018 Telephone [facility] Shawnee Hilario, RN QUESTIONS, GENERAL (MRI [address] arriaga and DBS) [place], [place] 55 [facility] [phone] Social History Tobacco Use Types Packs/Day Years [...] back. They have an appointment On at [facility] and he is receiving his care over [...] on filedocumented in this encounter Care Teams Hot Tamale Worker Relationship Specialty Start Date End Date Lurdes Thomas MD PCP - General 06/18/14 12/11/19 documented as of this encounter
--- OUTSIDE RECORDS SUMMARY | 2021-12-28 18:00 | XMS_ITS | Encounter Summary ---
:1955 Author Organization [facility] Address [address], [place] [address] Care Team Providers Name Role Phone Lurdes Thomas MD Primary Care Provider Reason for Visit Reason Comments Prior Authorization Request update needed - Gocovri Encounter Details Date Type Department Care Team Description 10/10/2019 Telephone [facility] Neuroscience Center MD Prem Request (update needed Neurology 3931 [facility] - Goc[facility]) 295 [place] [address] [place], [place] [phone] Social History Tobacco Use Types Packs/Day Years [...] Spouse calling for pt - [facility] pharamacy checking on status for PA for Gocovri. Pt needs this medication by Monday. Please call pt back and advise. THanks Jeannette Dee 10/10/2019, 10:53 AM documented in this encounter Plan of Treatment Not on filedocumented as of this encounter Visit Diagnoses Not on filedocumented in this encounter Care Teams Transit Bus Driver Relationship Specialty Start Date End Date Lurdes Thomas MD PCP - General 06/18/14 12/11/19 documented as of this encounter
--- OUTSIDE RECORDS SUMMARY | 2021-12-28 18:00 | XMS_ITS | Encounter Summary ---
:1955 Author [facility] Address [address] [place] [address] Care Team Providers Name Role Phone Lurdes Thomas MD Primary Care Provider Reason for Referral Therapies (Routine) - Closed Specialty Diagnoses / Procedures Referred By Contact Refer red To Contact Diagnoses Dysphagia, unspecified type Parkinson's disease (HRC) Maria Esther Phan MD [address] [place], [place] [address] Referral ID Status Reason Start Date Expiration Date Visits Requ ested Visits Authorized [id number] Closed 06/17/2019 08/16/2019 1 1 Scheduling Instructions Your provider has recommended an appoint ment with a [facility] Speech Therapist. Please stop at the clinic check out desk for as sistance with scheduling or if you prefer to call for your appointment you may call [facility] Outpatient Rehabilitation at [phone]. We suggest you call your [facility] insurance company about your coverage and benefits for this appointment. EL AUTOMOTIVE TECHNICIAN Reason for Visit Reason Comments REPORTING, NEW SYMPTOMS Encounter Details Date Type Department Care Team Description 06/17/2019 [facility] Prem SYMPTOMS Neurology [address] [address] [place], [place] [phone] (Wo rk) Social History Tobacco Use Types [...] no call back needed at this time. EL AUTOMOTIVE TECHNICIAN Matt Cates RN - 06/17/2019 10:13 AM CST Nurse called Natasha and relayed message from Dr. Phan to her. She stated understanding and had no further questions at this time. She was in agreement with plan. Matt Cates RN 06/17/2019, 10:15 AM EL AUTOMOTIVE TECHNICIAN Maria Esther Phan MD - 06/17/2019 10:05 AM CST They should have his PCP check him and possily do a CXR if indicated. The we can have him see speechtherapy for swallow evaluation - order entered. EL AUTOMOTIVE TECHNICIAN Maximo Julio - 06/17/2019 8:16 AM CST Patients Natasha, calling to request call back regarding symptoms she is concerned about. She states the patient has been coughing for the past week and she thought it was due to a cold however, now she thinks it is from aspiration from Parkinson's. Please call her back when available, Thank you. EL AUTOMOTIVE TECHNICIAN documented in this encounter Plan of Treatment Scheduled Referrals Name Type Priority Associated Diagnoses Order S chedule Speech Therapy Referral Routine Dysphagia, unspe cified type Ordered: 06/17/2019 Parkinson's disease (HRC) documented as of this encounter Visit Diagnoses Diagnosis Dysphagia, unspecified type - Primary Parkinson's disease (HRC) documented in this encounter Care Teams Box Stacker Relationship Specialty Start Date End Date Lurdes Thomas MD PCP - General 06/18/14 12/11/19 documented as of this encounter
--- OUTSIDE RECORDS SUMMARY | 2021-12-28 18:00 | XMS_ITS | Encounter Summary ---
:[address] [facility] Address [address] [address] Care Team Providers Name Role Phone Lurdes Thomas MD Primary Care Provider Reason for Visit Reason Comments Dysphagia Encounter Details Date Type Department Care Team Description 06/24/2019 [facility] Visit [facility] [place] oropharyngeal phase Speech Therapy [address] (Primary Dx) [address] [place], [place] [address] [place] [address] [phone] Social History Tobacco Use Types Packs/Day Years [...] goals established as no further intervention from JINGLE WRITER service is warranted at this time. VISIT INFORMATION [facility] Insurance Info: Today's Visit Number: 1 [...] Today: Exam completed Results reviewed. Pt and JINGLE WRITER watched MBSS video together with JINGLE WRITER pointing out anatomical landmarks and explaining how [...] Total Treatment Time: 35 minutes Nabila Morrell CCC-JINGLE WRITER 06/24/2019 STIC LAUNDRY WORKER documented in this encounter Plan of Treatment Not on filedocumented as of this encounter Visit Diagnoses Diagnosis Dysphagia, oropharyngeal phase - Primary documented in this encounter Care Teams Centrifugal Spinner Relationship Specialty Start Date End Date Lurdes Thomas MD PCP - General 06/18/14 12/11/19 documented as of this encounter
--- OUTSIDE RECORDS SUMMARY | 2021-12-28 18:00 | XMS_ITS | Encounter Summary ---
:1955 Author [facility] Address [address], [place] [address] Care Team Providers Name Role Phone Samantha Stauffer MD Primary Care Provider [phone] Reason for Visit Reason Comments QUESTIONS, GENERAL Encounter Details Date Type Department Care Team Description 07/24/2020 Telephone [facility] Brower, GENERAL Neuroscience Center MD Prem Neurology [address] [facility] [address] [place] [phone] (Wo rk) Social History Tobacco Use Types [...] a follow up appt with him at [facility]. Jeannette Porras RN Maximo Sadler - 07/24/2020 9:50 AM CST Patient is requesting a call back regarding questions he has about covid vaccine and also about DBS battery. Please call back when available, Thank you. Maximo Julio 07/24/2020, 9:52 AM VE MAKER documented in this encounter Plan of Treatment Not on filedocumented as of this encounter Visit Diagnoses Not on filedocumented in this encounter Care Teams Executive Director Of Marketing Relationship Specialty Start Date End Date Samantha Stauffer MD PCP - General Family Practice 12/12/191999 [place] [address] documented as of this encounter
--- OUTSIDE RECORDS SUMMARY | 2021-12-28 18:00 | XMS_ITS | Encounter Summary ---
:1955 Author Organization [facility] Address [address] [place] [address] Care Team Providers Name Role Phone Samantha Stauffer MD Primary Care Provider [phone] Reason for Visit Reason Comments Post-Op Check Encounter Details Date Type Department Care Team Description 01/24/2020 Telemedicine Specialty Center 3931 Divina Kaiser MD Parkinson's disease Neurosurgery 3931 [facility] (Primary Dx) [facility] [address] [phone] Social History Tobacco Use Types Packs/Day Years [...] Primary documented in this encounter Care Teams Supervisor Cutting Department Relationship Specialty Start Date End Date Samantha Stauffer MD PCP - General Family Practice 12/12/191999 [place] [address] documented as of this encounter
--- OUTSIDE RECORDS SUMMARY | 2021-12-28 18:00 | XMS_ITS | Encounter Summary ---
:1955 Author Organization [facility] Address [address] [place] [address] Care Team Providers Name Role Phone Samantha Stauffer MD Primary Care Provider [phone] Reason for Visit Reason Comments Prior Authorization Request Amantadine HCl ER (GOCOVRI ) 137 MG CP24 Encounter Details Date Type Department Care Team Description 10/27/[address] [facility] A [facility] Neuroscience Center MD Prem Request (Amantadine Neurology [address] HCl ER (GOCOVRI) [address] MG CP24) [place] [address] [place], [place] [phone] Social History Tobacco Use Types Packs/Day Years Used Date Smoking Tobacco: Never Smokeless Tobacco: Never Alcohol Use Standard Drinks/Week Comments Yes 0 (1 standard drink = 0.6 oz pure alcoho l) Sex Assigned at Date Recorded Not on file documented as of this encounter Nursing Notes Chloé Denny - 11/06/2020 8:37 AM CDT Prior authorization approved -Nida Payer: [facility] CaseId:[id number];Status:Approved;Review Type:Prior Auth;Coverage Start Date:09/27/2020;Coverage End Date:10/27/2021; RN [...] on filedocumented in this encounter Care Teams Stogie Packer Relationship Specialty Start Date End Date Samantha Stauffer MD PCP - General Family Practice 12/12/191999 [place] [address] documented as of this encounter
--- OUTSIDE RECORDS SUMMARY | 2021-12-28 18:00 | XMS_ITS | Encounter Summary ---
:1955 Author Organization [facility] Address [address] [address] Care Team Providers Name Role Phone Samantha Stauffer MD Primary Care Provider [phone] Reason for Visit Auth/Cert Specialty Diagnoses / Procedures Referred By Contact Refer red To Contact Diagnoses Parkinson's disease (HRC) Procedures RIGHT DEEP BRAIN STIMULATOR GENERATOR REPLACEMENT Referral ID Status Reason Start Date Expiration Date Visits Requ ested Visits Authorized [id number] 1 1 Encounter Details Date Type Department Care Team Description 12/12/2019 Anesthesia Event Pentecostal Operating Migel Portillo MD [address] [place] [address] [facility] Nasim Armstrong MD [address] [place] [address] [place] [address] Anesthesia Record Procedure Summary Procedure Name Responsible Anesthesia Start Anesthesia Stop Anesthesiologist Time Time RIGHT DEEP BRAIN Jimmy Portillo MD 12/12/19 0730 12/12/19 08 22 STIMULATOR GENERATOR REPLACEMENT (Right) Events Date Time Event Comment 12/12/2019 0723 0730 An Start 0730 An Start Data 0735 An Cannula 0756 / Present 0817 an stop data 0822 An [...] 12/26/19; Removal Time: 1942 Incision/Surgical Site 12/12/19; 075; #1; 12/12/19 0758 by 11/08 by Adair, [...] Portillo MD - 12/12/2019 11:16 AM CDT [facility] Anesthesia Post-op Note Patient: Andrew Chalberg Post-Op Diagnosis: Parkinson's disease (hrc) Procedure Performed: [...] Armstrong MD - 12/12/2019 7:16 AM CDT [facility] Anesthesia Pre-op Evaluation Procedure: Procedure(s): Right - [...] benefits and alternatives discussed with: Patient or Group Leader agree tothe anesthesia treatment plan and Patient. [...] mL/hr documented in this encounter Care Teams Director Of Corporate Sales Relationship Specialty Start Date End Date Samantha Stauffer MD PCP - General Family Practice 12/12/191999 [place] [address] documented as of this encounter
--- OUTSIDE RECORDS SUMMARY | 2021-12-28 18:00 | XMS_ITS | Encounter Summary ---
:1955 Author Organization [facility] Address [address] [place] [address] Care Team Providers Name Role Phone Lurdes Thomas MD Primary Care Provider Reason for Visit Reason Comments QUESTIONS, GENERAL Encounter Details Date Type Department Care Team Description 09/17/2019 Telephone [facility] Maria Esther Phan, GENERAL [facility] MD Prem Neurology [address] [facility] [address] [phone] (Wo rk) Social History Tobacco Use Types [...] the top of his limit. Gave him [facility] DBS nurse line to call if he had programing questions. FYI. Maria Esther Phan MD - 09/23/2019 12:30 PM CDT OK, I will ask nursing for DBS programming with [facility], to see if we can put off [...] Phan may have patient to go to [facility] to have an adjustment. They would be interested in this if it is a possibility. Dr. Phan, please review and advise. Matt Cates RN 09/23/2019, 12:18 PM Sylvia Burgess - 09/23/2019 10:10 AM CDT Spouse called in, wanting to speak with Blaise about his battery and could be that it needs adjusting.Please call [phone] Sylvia Burgess 09/23/2019, 10:11 AM Matt Cates [...] on filedocumented in this encounter Care Teams Cast Shell Grinder Relationship Specialty Start Date End Date Lurdes Thomas MD PCP - General 06/18/14 12/11/19 documented as of this encounter
--- OUTSIDE RECORDS SUMMARY | 2021-12-28 18:00 | XMS_ITS | Encounter Summary ---
:1955 Author Organization [facility] Address [address] [address] Care Team Providers Name Role Phone Lurdes Thomas MD Primary Care Provider Reason for Referral Procedure/Equipment (Routine) - Incomplete Specialty Diagnoses / Procedures Referred By Contact Refer red To Contact Diagnoses Dysphagia, oropharyngeal phase Maria Esther Phan MD Procedures [place] Video Swallow Study [address] [place], [place] [address] Referral ID Status Reason Start Date Expiration Date Visits V isits Requested Authorized [id number] Incomplete 06/24/2019 09/22/2020 1 1 INSPECTOR Reason for Visit Reason Comments Parkinson's Disease Therapies (Routine) - Closed Specialty Diagnoses / Procedures Referred By Contact Refer red To Contact Diagnoses Dysphagia, unspecified type Parkinson's disease (HRC) Maria Esther Phan MD [address] [place], [place] [address] Referral ID Status Reason Start Date Expiration Date Visits Requ ested Visits Authorized [id number] Closed 06/17/2019 08/16/2019 1 1 Encounter Details Date Type Department Care Team Description 06/24/2019 Office Visit Mesfin Fong, Dysphagia, [facility] oropharyngeal phase Speech Therapy [address] (Primary Dx) [address] [place], [place] [id number] [place] [address] [phone] Social History Tobacco Use Types Packs/Day Years Used Date Smoking Tobacco: Never Smokeless Tobacco: Never Alcohol Use Standard Drinks/Week Comments Yes 0 (1 standard drink = 0.6 oz pure alcoho l) Sex Assigned at Date Recorded Not on file documented as of this encounter Progress Notes Mesfin Morgan SLP - 06/24/2019 3:00 PM CST Pt seen, referred for MBSS INSPECTOR documented in this encounter Plan of Treatment Not on filedocumented as of this encounter Results FL Video Swallow Study (06/24/2019 4:10 PM DISC INSPECTOR) Anatomical Region Laterality Modality Neck, Chest Radio Fluoroscopy Specimen (Source) Anatomical Collection Method Collection Time Re ceived Time Location / / Volume Laterality 06/24/2019 4:10 PM DISC INSPECTOR Narrative 06/24/2019 5:11 PM DISC INSPECTOR EXAM: [place] VIDEO SWALLOW STUDY LOCATION: [facility] DATE/TIME: 06/24/2019 4:10 PM INDICATION: Difficulty [...] original. EXAM: FL VIDEO SWALLOW STUDY LOCATION: [facility] DATE/TIME: 06/24/2019 4:10 PM INDICATION: Difficulty [...] as described above. Maria Esther Phan MD [facility] documented in this encounter Visit Diagnoses Diagnosis Dysphagia, oropharyngeal phase - Primary Dysphagia, oropharyngeal phase documented in this encounter Care Teams Balloon Pilot Relationship Specialty Start Date End Date Lurdes Thomas MD PCP - General 06/18/14 12/11/19 documented as of this encounter
--- OUTSIDE RECORDS SUMMARY | 2021-12-28 18:00 | XMS_ITS | Encounter Summary ---
:1955 Author Organization [facility] Address [address] [place] [address] Care Team Providers Name Role Phone Samantha Stauffer MD Primary Care Provider [phone] Reason for Visit Reason Comments Nurse Visit Encounter Details Date Type Department Care Team Description 12/25/2019 Office Visit Specialty Center 3931 Nurse, [id number] Nsu En counter for post Neurosurgery surgical wound check [address] [facility]. (Primary Dx) [place], [place] [id number] Social History Tobacco Use Types Packs/Day Years [...] in another medication such as Percocet or [place]). ?? If you are still taking prescription [...] Primary documented in this encounter Care Teams Drywall Finisher Relationship Specialty Start Date End Date Samantha Stauffer MD PCP - General Family Practice 12/12/191999 [place] [address] documented as of this encounter
--- OUTSIDE RECORDS SUMMARY | 2021-12-28 18:00 | XMS_ITS | Encounter Summary ---
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 Call [facility] at . We suggest you call your health insurance company about your coverage an d benefits for this appointment. Encounter Details Date Type Department Care Team Description 11/13/2020 Office Visit Maria Esther Mckeon on's disease (HRC) (Primary Dx); Neuroscience Center MD Prem Dysphagia, unspecified type; Neurology [address] [place] [address] Dyskinesia due to Parkinson' s disease (HRC); [address] [place] [address] [place], [place] [phone] Social History Tobacco Use Types Packs/Day Years [...] the endoscopy isplanned. If all those things returned case inspector to be okay then I would have [...] we will arrange for programming session at [place]. Next 6. Otherwise follow-up with me in [...] fall documented in this encounter Care Teams Parts Cataloger Relationship Specialty Start Date End Date Samantha Stauffer MD PCP - General Family Practice 12/12/191999 [place] [address] documented as of this encounter
--- OUTSIDE RECORDS SUMMARY | 2021-12-28 18:00 | XMS_ITS | Encounter Summary ---
:1955 Author Organization [employer] Address [address] [place] [address] Care Team Providers Name Role Phone Lurdes Thomas MD Primary Care Provider Reason for Visit Reason Comments QUESTIONS, GENERAL MRI with DBS Encounter Details Date Type Department Care Team Description 10/18/2018 Telephone [facility] Shawnee Hilario, RN QUESTIONS, GENERAL (MRI [address] arriaga with DBS) [place], [place] [address] [facility] [phone] Social History Tobacco Use Types Packs/Day Years Used Date Smoking Tobacco: Never Smokeless Tobacco: Never Alcohol Use Standard Drinks/Week Comments Yes 0 (1 standard drink = 0.6 oz pure alcoho l) Sex Assigned at Date Recorded Not on file documented as of this encounter Nursing Notes Shawnee Hilario, RN - 10/18/2018 4:25 PM CDT There was no return phone call to [facility] today about getting system checked. Will send FYI to and then close encounter. Shawnee Hilario RN - 10/18/2018 9:06 AM CDT Patient and significant other calling because patient needs an MRI of his lumbar spine and was supposed to have this morning at [facility]. They wanted to fax us a form to complete verifying his DBS system is MRI eligible. We have not seen patient here for well over a year, he see's Dr. Phan over at the [facility] in [place]. I offered 3 options to them. They could come here and have the check. They could ask their doctor to order MRI over at [facility] and someone there can check it or they could contact [employer] and see if anyone could go out to [place] to check. She will call us back and let us know what they decide. documented in this encounter Plan of Treatment Not on filedocumented as of this encounter Visit Diagnoses Not on filedocumented in this encounter Care Teams Shipfitter Helper Relationship Specialty Start Date End Date Lurdes Thomas MD PCP - General 06/18/14 12/11/19 documented as of this encounter
--- OUTSIDE RECORDS SUMMARY | 2021-12-28 18:00 | XMS_ITS | Encounter Summary ---
:1955 Author Organization [facility] Address [address] [place] [address] Care Team Providers Name Role Phone Lurdes Thomas MD Primary Care Provider Encounter Details Date Type Department Care Team Description 04/12/2019 Telephone [facility] Neuroscience Princess Phan, Center Neurology [address] [facility] [address] [place] [address] [place] [address] [phone] (Wo rk) Social History Tobacco Use Types [...] folder as COURT Laughlin 04/12/2019, 2:20 PM STRIAL PSYCHOLOGIST documented in this encounter Plan of Treatment Not on filedocumented as of this encounter Visit Diagnoses Not on filedocumented in this encounter Care Teams Wastewater Engineer Relationship Specialty Start Date End Date Lurdes Thomas MD PCP - General 06/18/14 12/11/19 documented as of this encounter
--- OUTSIDE RECORDS SUMMARY | 2021-12-28 18:00 | XMS_ITS | Encounter Summary ---
:1955 Author Organization [facility] Address [address], [place] [address] Care Team Providers Name Role Phone Lurdes Thomas MD Primary Care Provider Reason for Visit Reason Comments Video Visit Consult/Transfer Care (Routine) - Closed Specialty Diagnoses / Procedures Referred By Contact Refer red To Contact Diagnoses Parkinson's disease (HRC) Maria Esther Phan MD [address] [place], [place] [address] Referral ID Status Reason Start Date Expiration Date Visits Requ ested Visits Authorized [id number] Closed 09/12/2019 12/11/2020 1 1 Encounter Details Date Type Department Care Team Description 09/18/2019 Telemedicine Specialty Center 3931 Divina Kaiser MD Parkinson's disease Neurosurgery [address] [facility] (Primary Dx) [address] [facility] [address] [phone] Social History Tobacco Use Types Packs/Day Years [...] screening: no ?? Confirmed that patient has InsideTrack downloaded and ready: Yes ?? Patient is [...] Primary documented in this encounter Care Teams Echocardiography Radiology Technologist Relationship Specialty Start Date End Date Lurdes Thomas MD PCP - General 06/18/14 12/11/19 documented as of this encounter
--- OUTSIDE RECORDS SUMMARY | 2021-12-28 18:00 | XMS_ITS | Encounter Summary ---
:1955 Author Organization [facility] Address [address] [place] [address] [place] [address] Care Team Providers Name Role Phone Samantha Stauffer MD Primary Care Provider [phone] Reason for Visit Auth/Cert Specialty Diagnoses / Procedures Referred By Contact Refer red To Contact Diagnoses Parkinson's disease (HRC) Procedures RIGHT DEEP BRAIN STIMULATOR GENERATOR REPLACEMENT Referral ID Status Reason Start Date Expiration Date Visits Requ ested Visits Authorized [id number] 1 1 Encounter Details Date Type Department Care Team Description 12/12/2019 Surgery Restorationist Operating Jorge L Kaiser MD RIGHT DEEP BRAIN Room [address] [facility] STIMULATOR GENERATOR [address] [place], [place] [address] [phone] Social History Tobacco Use Types Packs/Day Years [...] upper arm muscles. This includes pushing a handhole machine operator or vacuum and mopping floors. It also [...] can you learn more? 1. Go to https://[employer]/Responde Airary or Grabbed/Movie [employer] 2. Enter D150 in the search box. Current as of: April 09, 2019?Content Version: 12.4 ?? [employer]. Care instructions adapted under license by your healthcare professional. If you have questions abouta medical condition or this instruction, always ask your healthcare professional. [employer] disclaims any warranty or liability for your [...] on Keflex including possible side effects. Prescriptions [facility] in [place]. Belongings checklist reviewed with patient and belongings [...] Kaiser MD - 12/12/2019 8:17 AM CDT [facility] Operative Note Surgery Date: 12/12/2019 Primary Surgeon: [...] 8-10 minutes) Implants: Activa PC Model number [id number] Serial No: [id number] Post-op Diagnosis: Parkinson's Disease, Right Infraclavicular IPG [...] - Rapid (COVID-19) (12/12/2019 6:06 AM CDT) [facility] Method Time Signature COVID-19 Not Not 12/12/2019 [facility] Interpretation Detected Detected 7:04 AM CDT LABORATORY Specimen Anatomical Collection Method Collection Time Receive d Time (Source) Location / / Volume Laterality Swab (Source Non-blood 12/12/2019 6:06 AM 0 6:09 Required) Collection / CDT AM CDT Unknown Narrative [facility] - 12/12/2019 7:04 A M CDT Test performed by real-time PCR. This test has been authorized by the FDA under an Emergency Use Authorization (EUA) for use by authorized laboratories. Jorge L Kaiser MD LAB_1 Performing Organization Address City/State/ZIP Code Phon e Number [facility] [address] [place] [address] documented in this encounter Visit Diagnoses Diagnosis Parkinson's disease (HRC) - Primary Parkinson's disease (HRC) documented in this encounter Admitting Diagnoses Diagnosis Parkinson's disease (HRC) documented in this encounter Administered Medications Inactive Administered Medications - up to 3 most recent administrations Medication Order MAR Action Action Date Dose Rate Site bupivacaine-epinephrine PF Given 12/12/2019 7:58 AM CDT 20 mL (SENSORCAINE) 0.25% -1:130152 injection ONCE PRN, Starting on Stacey 12/12/19 [...] (COMPLETED) 0735 (Given - Provider: Luis Anaya, OPERATIONS OFFICER, E BUSINESS CONSULTANT) 2 g, Intravenous, Administer over 30 Min [...] (Anesthesia Fluid - Provider: Luis Anaya APRN, E BUSINESS CONSULTANT) 25 mL/hr, Intravenous, at 25 mL/hr, CONT INUOUS, Starting Stacey 12/12/19 at 0615, Administer on all preop surgery patients, ages 12 and older, unless specified differently in the Protocol for Preop Initiation of IV fluids Order Set., Pre-op NaCl 0.9%-KCl 20 mEq/liter infusion 0900 (Due) Intravenous, at 75 mL/hr, CONTINUOUS, Starting [facility] 12/12/19 at 09 00, Post-op PRN Medication Order 12/10/2019 12/11/2019 12/12/2019 acetaminophen (TYLENOL) tablet 650 mg 650 mg, Oral, Q4H PRN, Other, Mild Pain (pain score 1-4), Starting [facility] 12/12/19 at 0830, Every 4 hours [...] is ineffective., Post-op bupivacaine-epinephrine PF (SENSORCAINE) 0.25% -1:594127 injecti on 0758 (Given - Provider: Jorge [...] time as ORAL opioids. HOLD if on WEAPONS MECHANIC., Post-op lidocaine (UROJET) 2 % prefilled syringe [...] time as IV opioids. HOLD if on WEAPONS MECHANIC., Post-op senna (SENOKOT) tablet 1-2 Tablet 1-2 Tablet, Oral, BID PRN, Other, Modera te Constipation, Starting Stacey 12/12/19 at 0830, Hold for loose stools, Post-op documented in this encounter Care Teams Costume Specialist Relationship Specialty Start Date End Date Samantha Stauffer MD PCP - General Family Practice 12/12/191999 [place] [address] documented as of this encounter
--- OUTSIDE RECORDS SUMMARY | 2021-12-28 18:00 | XMS_ITS | Encounter Summary ---
:1955 Author Organization [facility] Address [address] [place] [address] Care Team Providers Name Role Phone Samantha Stauffer MD Primary Care Provider [phone] Reason for Visit Auth/Cert Specialty Diagnoses / Procedures Referred By Contact Refer red To Contact Diagnoses Parkinson's disease (HRC) Procedures RIGHT DEEP BRAIN STIMULATOR GENERATOR REPLACEMENT Referral ID Status Reason Start Date Expiration Date Visits Requ ested Visits Authorized [id number] 1 1 Encounter Details Date Type Department Care Team Description 12/12/2019 Hospital Encounter [facility] Clementine Kaiser MD Parkinson's disease Room [address] [facility] [address] [place] [address] [place] [address] [phone] Social History Tobacco Use Types Packs/Day Years [...] upper arm muscles. This includes pushing a toolroom clerk or vacuum and mopping floors. It also [...] can you learn more? 1. Go to https://[employer]/Vitals (vitals.[email or web address])rary or Fire Supp[employer] Specialists/DivvyDown[employer]. [employer]. 2. Enter D150 in the search box. Current as of: April 09, 2019?Content Version: 12.4 ?? Narr8. Care instructions adapted under license by your healthcare professional. If you have questions abouta medical condition or this instruction, always ask your healthcare professional. Narr8 disclaims any warranty or liability for your [...] on Keflex including possible side effects. Prescriptions [facility] in [place]. Belongings checklist reviewed with patient and belongings [...] Kaiser MD - 12/12/2019 8:17 AM CDT [facility] Operative Note Surgery Date: 12/12/2019 Primary [...] 8-10 minutes) Implants: Activa PC Model number [id number] Serial No: [id number] Post-op Diagnosis: Parkinson's Disease, Right Infraclavicular IPG [...] - Rapid (COVID-19) (12/12/2019 6:06 AM CDT) [facility] Method Time Signature COVID-19 Not Not 12/12/2019 [facility] Interpretation Detected Detected 7:04 AM CDT LABORATORY Specimen Anatomical Collection Method Collection Time Receive d Time (Source) Location / / Volume Laterality Swab (Source Non-blood 12/12/2019 6:06 AM 0 6:09 Required) Collection / CDT AM CDT Unknown Narrative [facility] - 12/12/2019 7:04 A M CDT Test performed by real-time PCR. This test has been authorized by the FDA under an Emergency Use Authorization (EUA) for use by authorized laboratories. Jorge L Kaiser MD LAB_1 Performing Organization Address City/State/ZIP Code Phon e Number [facility] [address] [place] [address] documented in this encounter Visit Diagnoses Diagnosis Parkinson's disease (HRC) - Primary documented in this encounter Admitting Diagnoses Diagnosis Parkinson's disease (HRC) documented in this encounter Administered Medications Inactive Administered Medications - up to 3 most recent administrations Medication Order MAR Action Action Date Dose Rate Site bupivacaine-epinephrine PF Given 12/12/2019 7:58 AM CDT 20 mL (SENSORCAINE) 0.25% -1:399213 injection ONCE PRN, Starting on Stacey 12/12/19 [...] (COMPLETED) 0735 (Given - Provider: Luis Anaya, PHYSICIAN ASSISTANT, DATA COLLECTION INTERVIEWER) 2 g, Intravenous, Administer over 30 Min [...] (Anesthesia Fluid - Provider: Luis Anaya APRN, DATA COLLECTION INTERVIEWER) 25 mL/hr, Intravenous, at 25 mL/hr, CONT [...] Lozenge, Oral, Q2H PRN, Throat Pain, Starting [facility] 12/12/19 at 0 957 bisacodyl (DULCOLAX) rectal suppository 10 mg 10 mg, Rectal, DAILY PRN, Other, Moderat e Constipation, Starting [facility] 12/12/19 at 0830, If unable to take oral senna (SENOKOT) or senna (SENOKOT) is ineffective., Post-op bupivacaine-epinephrine PF (SENSORCAINE) 0.25% -1:778292 injecti on 0758 (Given - Provider: Jorge L Kaiser MD) ONCE PRN, Starting [facility] 12/12/19 at 0758, Intra-op gentamicin 80 mg-clindamycin 900 mg in s odium chloride 1000 mL (DABS) irrigation solution 0802 (Given - Provid er: Jorge L Kaiser MD) ONCE PRN, Starting [facility] 12/12/19 at 0802, Intra-op HYDROcodone-acetaminophen (NORCO) 5-325 MG per tablet 1-2 Tablet 1-2 Tablet, Oral, Q4H PRN, Other, Modera te Pain (pain score 5-7), Starting [facility] 12/12/19 at 0830, Post-op HYDROmorphone (DILAUDID) injection 0.3-0.5 mg 0.3-0.5 mg, Intravenous, Q2H PRN, Other, Severe Pain (pain score 8-10) if unable to take oral medications or for pain score increasing by 3 in 30 minutes, Starting [facility] 12/12/19 at 1216, May administer 1 hour after ORAL opioid administration if given for pain score escalation. Do NOT administer at the same time as ORAL opioids. HOLD if on GLASS MOULD CLEANER., Post-op lidocaine (UROJET) 2 % prefilled syringe [...] time as IV opioids. HOLD if on GLASS MOULD CLEANER., Post-op senna (SENOKOT) tablet 1-2 Tablet 1-2 Tablet, Oral, BID PRN, Other, Modera te Constipation, Starting Stacey 12/12/19 at 0830, Hold for loose stools, Post-op documented in this encounter Care Teams Systems Design Engineer Relationship Specialty Start Date End Date Samantha Stauffer MD PCP - General Family Practice 12/12/191999 [place] [address] documented as of this encounter
--- OUTSIDE RECORDS SUMMARY | 2021-12-28 18:00 | XMS_ITS | Encounter Summary ---
:1955 Author Organization [facility] Address [address], [place] [address] Care Team Providers Name Role Phone Lurdes Thomas MD Primary Care Provider Reason for Visit Procedure/Equipment (Routine) - Incomplete Specialty Diagnoses / Procedures Referred By Contact Refer red To Contact Diagnoses Dysphagia, oropharyngeal phase Bertohogeorgie, Maria Esther Amaro MD Procedures [place] Video Swallow Study [address] [place], [place] [address] Referral ID Status Reason Start Date Expiration Date Visits V isits Requested Authorized [id number] Incomplete 06/24/2019 09/22/2020 1 1 Encounter Details Date Type Department Care Team Description 06/24/2019 Ancillary [facility] [place], Dysphagia, Procedure [facility] Maria Esther Amaro MD oropharyngeal phase Radiology Fluoro [address] [place] [address] [place] [address] [facility] [phone] [place] [address] Social History Tobacco Use Types Packs/Day [...] PM Dysphagia, Resul ts for this STUDY DOG WARDEN oropharyngeal phase procedur e are in the results section. documented in this encounter Results FL Video Swallow Study (06/24/2019 4:10 PM DOG WARDEN) Anatomical Region Laterality Modality Neck, Chest Radio Fluoroscopy Specimen (Source) Anatomical Collection Method Collection Time Re ceived Time Location / / Volume Laterality 06/24/2019 4:10 PM DOG WARDEN Narrative 06/24/2019 5:11 PM DOG WARDEN EXAM: [place] VIDEO SWALLOW STUDY LOCATION: [facility] DATE/TIME: 06/24/2019 4:10 PM INDICATION: Difficulty [...] original. EXAM: [place] VIDEO SWALLOW STUDY LOCATION: [facility] DATE/TIME: 06/24/2019 4:10 PM INDICATION: Difficulty [...] (VARIBAR NECTAR) 40 Given 06/24/2019 4:12 PM DOG WARDEN 20 mL % oral suspension 20 mL 20 mL, Oral, ONCE (NON-SCHEDULED), Starting on 06/24/19 at 1611, Until Discontinued, For 3 doses Inactive Administered Medications - up to 3 most recent administrations Medication Order MAR Action Action Date Dose Rate Site barium sulfate (ENTERO VU) Given 06/24/2019 4:12 PM DOG WARDEN 20 mL suspension 20 mL 20 mL, Oral, ONCE (NON-SCHEDULED), Starting on Mon06/24/19 at 1611, For 1 dose barium sulfate (EZ-DISK) tablet 700 mg Given 06/24/2019 4:12 PM DOG WARDEN 700 mg 700 mg, Oral, ONCE (NON-SCHEDULED), Starting on 06/24/19 at 1611, Until Mon06/24/19 at 1612, For 1 dose barium Sulfate (VARIBAR PUDDING) oral pudding 5 Given 06/24/2019 4:12 PM DOG WARDEN 5 mL mL 5 mL, Oral, ONCE (NON-SCHEDULED), Starting on 06/24/19 at 1611, Until Mon06/24/19 at 1612, For 1 dose documented in this encounter Care Teams Lap Grinder Relationship Specialty Start Date End Date Lurdes Thomas MD PCP - General 06/18/14 12/11/19 documented as of this encounter
--- OUTSIDE RECORDS SUMMARY | 2021-12-28 18:00 | XMS_ITS | Encounter Summary ---
:1955 Author Organization [facility] Address [address], [place] [address] Care Team Providers Name Role Phone Samantha Stauffer MD Primary Care Provider [phone] Reason for Visit Reason Comments Refill Encounter Details Date Type Department Care Team Description 11/01/2020 Refill [facility] Neuroscience Maria Esther Reis MD Refill Center Neurology [address] [facility] [address] [facility] [place] [address] [place] [address] [phone] Social History Tobacco Use Types Packs/Day Years [...] on filedocumented in this encounter Care Teams Application Systems Engineer Relationship Specialty Start Date End Date Samantha Stauffer MD PCP - General Family Practice 12/12/191999 [place] [address] documented as of this encounter
--- OUTSIDE RECORDS SUMMARY | 2021-12-28 18:00 | XMS_ITS | Encounter Summary ---
:1955 Author Organization [facility] Address [address], [place] [address] Care Team Providers Name Role Phone Samantha Stauffer MD Primary Care Provider [phone] Reason for Referral Medication Prior Authorization (Routine) - Authorized Specialty Diagnoses / Procedures Referred By Contact Refer red To Contact Maria Esther Phan MD [address] [place] [place], [place] [address] Referral ID Status Reason Start Date Expiration Date Visits V isits Requested Authorized [id number] Authorized 1 1 GER LOCATION Reason for Visit Reason Onset Date Comments Refill 07/15/2020 Amantadine HCl ER (G OCOVRI) 137 MG CP24 Encounter Details Date Type Department Care Team Description 07/[facility]/[address] [facility]Amantadine HCl [facility] MD Prem ER (GOCOVRI) 137 MG Neurology [address] [facility] CP24) [address] [place] [address] [phone] (Wo rk) Social History Tobacco Use Types [...] at bedtime. Sheldon Mays 07/15/2020, 8:49 AM GER LOCATION documented in this encounter Plan of Treatment Not on filedocumented as of this encounter Visit Diagnoses Not on filedocumented in this encounter Care Teams Acid Purifier Relationship Specialty Start Date End Date Samantha Stauffer MD PCP - General Family Practice 12/12/191999 [place] [address] documented as of this encounter
--- OUTSIDE RECORDS SUMMARY | 2021-12-28 18:00 | XMS_ITS | Encounter Summary ---
:1955 Author Organization [facility] Address [address] [place] [address] Care Team Providers Name Role Phone Lurdes Thomas MD Primary Care Provider Reason for Visit Reason Comments Follow-up Encounter Details Date Type Department Care Team Description 11/02/2018 Office Visit [facility] ([facility]C) (Primary Dx); Neuroscience Center Maria Esther Amaro MD Dyskinesia due to Parkinson's disease (H RC); Neurology [address] [place] Vasovagal syncope; [address] [address] [place], [place] [phone] Social History Tobacco Use Types Packs/Day Years [...] without abnormal responses. There are no tremors. Baaieb-mpyp-dipcxc and rjwb-smsh-onoo are accurate. There is minimal if any [...] unspecified documented in this encounter Care Teams Comb Setter Relationship Specialty Start Date End Date Lurdes Thomas MD PCP - General 06/18/14 12/11/19 documented as of this encounter
--- OUTSIDE RECORDS SUMMARY | 2021-12-28 18:00 | XMS_ITS | Encounter Summary ---
:1955 Author Organization [facility] Address [address] [place] [address] Care Team Providers Name Role Phone Lurdes Thomas MD Primary Care Provider Reason for Referral Consult/Transfer Care (Routine) - Closed Specialty Diagnoses / Procedures Referred By Contact Refer red To Contact Diagnoses Parkinson's disease (HRC) Richard Phan MD [address] [place], [place] [address] Referral ID Status Reason Start Date Expiration Date Visits Requ ested Visits Authorized [id number] Closed 09/12/2019 12/11/2020 1 1 Scheduling Instructions Your provider has recommended an appoint ment with Jasmine Ramirez. You may call [phone] to schedule your appoi ntment. If you do not schedule an appointment within the next 1 to 3 business days, we will call you to help arrange your appointment. We suggest you call your [facility] insurance company about your coverage and benefits for this appointment. Reason for Visit Reason Comments QUESTIONS, GENERAL UPDATE Encounter Details Date Type Department Care Team Description 09/02/2019 [facility] MD Prem UPDATE Neurology [address] [place] [address] [place], [place] [phone] (Wo rk) Social History Tobacco Use Types [...] Cates RN - 09/12/2019 11:36 AM CDT [facility] Matt Cates RN 09/12/2019, 11:37 AM [...] that we are restarting battery changes at [facility] with Dr. Kaiser, so if they wish [...] will be limited to drop off and pickers material handlers on the day of surgery. A family [...] documented in this encounter Care Teams Manager Post Relationship Specialty Start Date End Date Lurdes Thomas MD PCP - General 06/18/14 12/11/19 documented as of this encounter
--- OUTSIDE RECORDS SUMMARY | 2021-12-28 18:01 | XMS_ITS | Encounter Summary ---
:1955 Author Organization [facility] Address [address] [place] [address] Care Team Providers Name Role Phone Lurdes Thomas MD Primary Care Provider Reason for Referral Specialty Diagnoses / Procedures Referred By Contact Refer red To Contact Maria Esther Phan MD [address] [place], [place] [address] Referral ID Status Reason Start Date Expiration Date Visits Requ ested Visits Authorized Reason for Visit Reason Comments Device Check Encounter Details Date Type Department Care Team Description 12/09/2014 Nursing Visit [place] [facility] Doris Arauz, PD (Parkinson's disease) (Pr imary Dx); [address] [place] [address] Social History Tobacco Use Types [...] implantation. Surgeon: Dr. Gonzalez Rowland Surgery date/location: [facility] 09/09/14 Battery replacement: None Device type: Activia [...] Amp: 2.5, PW: 60, Rate: 150. Pt developer programmer analyst range: 2.1-2.7 Right SNT: 9 Negative, 10 Positive, Amp: 2.4, PW: 60, Rate: 150. Pt developer programmer analyst range: 2.0-2.6 Total face to face programming [...] agitans documented in this encounter Care Teams Sommelier Relationship Specialty Start Date End Date Lurdes Thomas MD PCP - General 06/18/14 12/11/19 documented as of this encounter
--- OUTSIDE RECORDS SUMMARY | 2021-12-28 18:01 | XMS_ITS | Encounter Summary ---
:1955 Author Organization [facility] Address [address], [place] [address] Care Team Providers Name Role Phone Lurdes Thomas MD Primary Care Provider Reason for Visit Reason Comments Spine Lumbar Encounter Details Date Type Department Care Team Description 06/18/2015 Office Visit [place] [facility] Chris Cain, Right -sided low back Therapy Aurora Briggs, PT pain with right-sided [address] granados (Primary Dx) [place] [address] [place], [place] [phone] (Wo rk) Social History Tobacco Use Types Packs/Day Years Used Date Smoking Tobacco: Never Smokeless Tobacco: Never Alcohol Use Standard Drinks/Week Comments Yes 0 (1 standard drink = 0.6 oz pure alcoho l) Sex Assigned at Date Recorded Not on file documented as of this encounter Progress Notes Aurora Hickey, PT - 06/23/2015 2:02 PM CST Encounter date: 06/18/2015 Pt : 1955 Jasmine [facility] Physical Therapy Progress Note Visit Number: 9 Initial Certification Period: 05/19/2015 to 08/17/15 Referring Provider: Dr. Maria Esther Phan Visit Diagnosis/ICD: Diagnosis ICD-10-CM ICD-9-CM 1. Right-sided low back pain with right-sided sciatica M54.41 724.3 Precautions: none Onset/Referral Date: 05/19/2015 Orders: Evaluate and treat. [facility] Services: Programming RN, Social Work, [...] above OBJ info and- therapeutic ex (CPT 14872)20 min side glides left reviewed flexion in step standing, left, than right. He still gets a little glitch on right side single leg raise in hands/knees position, 5 sec hold - in 1/2 sitting, hip hiking right for QL. He reports feeling an excellent stretch with this, no pain. ultrasound (CPT 12587) 11 min US to right LB for 10 min, 1.3 w/cm2, continuous manual therapy (CPT 23795) 12 min soft tissue mobilization, and use of rn procedures tool to T and lumbar paraspinals Timed [...] therapy beyondinitial 6 that are set up HEN FOOD SERVER documented in this encounter Plan of Treatment Not on filedocumented as of this encounter Visit Diagnoses Diagnosis Right-sided low back pain with right-beck ed sciatica (HRC) - Primary documented in this encounter Care Teams Buffing Line Set Up Worker Relationship Specialty Start Date End Date Lurdes Thomas MD PCP - General 06/18/14 12/11/19 documented as of this encounter
--- OUTSIDE RECORDS SUMMARY | 2021-12-28 18:01 | XMS_ITS | Encounter Summary ---
:1955 Author Organization [employer] Address [address], [place] [address] Care Team Providers Name Role Phone Lurdes Thomas MD Primary Care Provider Reason for Visit Reason Comments Spine Lumbar Encounter Details Date Type Department Care Team Description 06/23/2015 Office Visit [place] [facility] Chris Cain, Right -sided low back Therapy Aurora rBiggs, PT pain with right-sided [address] granados (Primary Dx) [place] [address] [place], [place] [phone] (Wo rk) Social History Tobacco Use Types Packs/Day Years Used Date Smoking Tobacco: Never Smokeless Tobacco: Never Alcohol Use Standard Drinks/Week Comments Yes 0 (1 standard drink = 0.6 oz pure alcoho l) Sex Assigned at Date Recorded Not on file documented as of this encounter Progress Notes Aurora Hickey, PT - 06/23/2015 2:00 PM CST Encounter date: 06/23/2015 Pt : 1955 Jasmine [facility] Physical Therapy Progress Note Visit Number: 10 Initial Certification Period: 05/19/2015 to 08/17/15 Referring Provider: Dr. Maria Esther Phan Visit Diagnosis/ICD: Diagnosis ICD-10-CM ICD-9-CM 1. Right-sided low back pain with right-sided sciatica M54.41 724.3 Precautions: none Onset/Referral Date: 05/19/2015 Orders: Evaluate and treat. [facility] Services: Programming RN, Social Work, [...] above OBJ info and- therapeutic ex (CPT 66121)10 min reviewed flexion in step standing, left, than right. He still gets a little glitch on right side - in 1/2 sitting, hip hiking right for QL. He reports feeling an excellent stretch with this, no pain. 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
--- OUTSIDE RECORDS SUMMARY | 2021-12-28 18:01 | XMS_ITS | Encounter Summary ---
:1955 Author Organization [facility] Address [address] [place] [address] Care Team Providers Name Role Phone Lurdes Thomas MD Primary Care Provider Reason for Visit Reason Comments Follow-up Back Pain Encounter Details Date Type Department Care Team Description 05/19/2015 Office Visit [place] [facility] Maria Esther Phan PD (Parkinson's disease) (Pr imary Dx); [address] Dae Amaro MD Right-sided low back pain with right-beck ed sciatica Drive [address] [place], [place] S [address] [place], [place] [phone] (Wo rk) Social History Tobacco Use Types Packs/Day Years Used Date Smoking Tobacco: Never Smokeless Tobacco: Never Alcohol Use Standard Drinks/Week Comments Yes 0 (1 standard drink = 0.6 oz pure alcoho l) Sex Assigned at Date Recorded Not on file documented as of this encounter Last Filed Vital Signs Vital Sign Reading Time Taken Comments Blood Pressure 122/78 05/19/2015 8:29 AM [facility] Pulse 76 05/19/2015 8:29 AM [facility] Temperature - - Respiratory Rate - - Oxygen Saturation - - Inhaled Oxygen Concentration - - Weight 90.6 kg (199 lb 12.8 oz) 05/19/2015 8:24 AM [facility] Height - - Body Mass Index 26.37 07/08/2014 8:56 AM [facility] documented in this encounter Progress Notes Maria Esther Phan MD - 05/19/2015 8:52 AM CST Dictated [employer] [facility] documented in this encounter Plan of Treatment Not on filedocumented as of this encounter Visit Diagnoses Diagnosis PD (Parkinson's disease) (HRC) - Primary Paralysis agitans Right-sided low back pain with right-beck ed sciatica (HRC) documented in this encounter Care Teams Clerical Investigator Relationship Specialty Start Date End Date Lurdes Thomas MD PCP - General 06/18/14 12/11/19 documented as of this encounter
--- OUTSIDE RECORDS SUMMARY | 2021-12-28 18:01 | XMS_ITS | Encounter Summary ---
:1955 Author Organization [facility] Address [address], [place] [address] Care Team Providers Name Role Phone Lurdes Thomas MD Primary Care Provider Reason for Visit Reason Comments Other Encounter Details Date Type Department Care Team Description 12/07/2017 Telephone [place] [facility] Doris Arauz, RN Other [address] corina Lamas [place], [place] [address] Social History Tobacco Use Types Packs/Day Years Used Date Smoking Tobacco: Never Smokeless Tobacco: Never Alcohol Use Standard Drinks/Week Comments Yes 0 (1 standard drink = 0.6 oz pure alcoho l) Sex Assigned at Date Recorded Not on file documented as of this encounter Nursing Notes Doris Arauz, RN - 12/07/2017 2:28 PM CDT Received call from [employer]. They have been trying to call Andrew to schedule shipment of [employer] and unable to reach him. Called and LM for Andrew asking him to call [employer] at [phone]. [employer] will mail a letter also, asking him to call them. documented in this encounter Plan of Treatment Not on filedocumented as of this encounter Visit Diagnoses Not on filedocumented in this encounter Care Teams Business Test Analyst Relationship Specialty Start Date End Date Lurdes Thomas MD PCP - General 06/18/14 12/11/19 documented as of this encounter
--- OUTSIDE RECORDS SUMMARY | 2021-12-28 18:01 | XMS_ITS | Encounter Summary ---
:1955 Author Organization [facility] Address [address], [place] [address] Care Team Providers Name Role Phone Lurdes Thomas MD Primary Care Provider Reason for Visit Reason Onset Date Comments Refill 07/31/2018 Encounter Details Date Type Department Care Team Description 07/31/2018 Refill [facility] Neuroscience Maria Esther Reis MD Refill Center Neurology [address] [facility] [address] [facility] [place] [address] [place] [address] [phone] Social History Tobacco Use Types Packs/Day Years [...] on filedocumented in this encounter Care Teams Diagram Clerk Relationship Specialty Start Date End Date Lurdes Thomas MD PCP - General 06/18/14 12/11/19 documented as of this encounter
--- OUTSIDE RECORDS SUMMARY | 2021-12-28 18:01 | XMS_ITS | Encounter Summary ---
:1955 Author [facility] Address [address] [place] [address] Care Team Providers Name Role Phone Lurdes Thomas MD Primary Care Provider Encounter Details Date Type Department Care Team Description 05/09/2018 Telephone [facility] Princess Phan, [place] [facility] [address] [facility] [address] [place] [address] [place], [place] [phone] (Wo rk) Social History Tobacco Use Types [...] Barone MD - 05/09/2018 11:18 AM CST francisac Combs please call and find out what this is about? Nadia Bazan - 05/09/2018 9:19 AM CST CA took a call from [facility] stating-- need to clarify medication Rytary [phone] caps. Please advise. Nadia Persaud 05/09/2018, 9:20 AM RITY NURSE documented in this encounter Plan of Treatment Not on filedocumented as of this encounter Visit Diagnoses Not on filedocumented in this encounter Care Teams Hide Handler Relationship Specialty Start Date End Date Lurdes Thomas MD PCP - General 06/18/14 12/11/19 documented as of this encounter
--- OUTSIDE RECORDS SUMMARY | 2021-12-28 18:01 | XMS_ITS | Encounter Summary ---
:1955 Author Organization [facility] Address [address], [place] [address] Care Team Providers Name Role Phone Lurdes Thomas MD Primary Care Provider Reason for Visit Reason Comments Spine Lumbar Encounter Details Date Type Department Care Team Description 06/02/2015 Office Visit [place] [facility] hCris Cain, Right -sided low back Therapy Aurora Briggs, PT pain with right-sided [address] granados (Primary Dx) [place] [address] [place], [place] [phone] (Wo rk) Social History Tobacco Use Types Packs/Day Years Used Date Smoking Tobacco: Never Smokeless Tobacco: Never Alcohol Use Standard Drinks/Week Comments Yes 0 (1 standard drink = 0.6 oz pure alcoho l) Sex Assigned at Date Recorded Not on file documented as of this encounter Progress Notes Aurora Hickey, PT - 06/02/2015 10:07 AM CST Encounter date: 06/02/2015 Pt : 1955 [facility] Physical Therapy Progress Note Visit Number: 3 Initial Certification Period: 05/19/2015 to 08/17/15 Referring Provider: Dr. Maria Esther Phan Visit Diagnosis/ICD: Diagnosis ICD-10-CM ICD-9-CM 1. Right-sided low back pain with right-sided sciatica M54.41 724.3 Precautions: none Onset/Referral Date: 05/19/2015 Reason for Referral: -Outpatient PT. Orders: Evaluate and treat. [facility] Services: Programming RN, Social Work, [...] with REIL Treatment/Education Today: therapeutic ex (CPT 55271)5 min time spent with orthopedic assessment ultrasound (CPT 29264) 12 min US to right LB for 10 min, 1.3 w/cm2, continous therapeutic ex (CPT 69611) 30 min Reviewed and practiced his HEP: [...] manual therapy, exercise progression, modalities if needed. LE CUTTER documented in this encounter Plan of Treatment Not on filedocumented as of this encounter Visit Diagnoses Diagnosis Right-sided low back pain with right-beck ed sciatica (HRC) - Primary documented in this encounter Care Teams Plaster Applicator Relationship Specialty Start Date End Date Lurdes Thomas MD PCP - General 06/18/14 12/11/19 documented as of this encounter
--- OUTSIDE RECORDS SUMMARY | 2021-12-28 18:01 | XMS_ITS | Encounter Summary ---
:1955 Author Organization [facility] Address [address], [place] [address] Care Team Providers Name Role Phone Lurdes Thomas MD Primary Care Provider Encounter Details Date Type Department Care Team Description 02/02/2015 Notes/Orders [place] [facility] Katalina Laughlin, PT [address] [place] [address] [place] [address] [place], [place] [phone] (Wo rk) Social History Tobacco Use [...] 90 day(s). Katalina Laughlin PT Physical Therapist [place] License # [id number] documented in this encounter Plan of Treatment Not on filedocumented as of this encounter Visit Diagnoses Not on filedocumented in this encounter Care Teams Model And Mold Maker Relationship Specialty Start Date End Date Lurdes Thomas MD PCP - General 06/18/14 12/11/19 documented as of this encounter
--- OUTSIDE RECORDS SUMMARY | 2021-12-28 18:01 | XMS_ITS | Encounter Summary ---
:1955 Author Organization [facility] Address [address] [place] [address] Care Team Providers Name Role Phone Lurdes Thomas MD Primary Care Provider Reason for Visit Reason Comments Prior Authorization Request Encounter Details Date Type Department Care Team Description 08/03/2018 Telephone [facility] Esther Walker [facility] MD Prem Request Neurology [address] [facility] [address] [facility] [place] [address] [place], [place] [phone] Social History Tobacco Use Types Packs/Day Years [...] on filedocumented in this encounter Care Teams Slipman Relationship Specialty Start Date End Date Lurdes Thomas MD PCP - General 06/18/14 12/11/19 documented as of this encounter
--- OUTSIDE RECORDS SUMMARY | 2021-12-28 18:01 | XMS_ITS | Encounter Summary ---
:1955 Author Organization [facility] Address [address], [place] [address] Care Team Providers Name Role Phone Lurdes Thomas MD Primary Care Provider Reason for Visit Reason Comments Forms Encounter Details Date Type Department Care Team Description 11/12/2014 Telephone [place] [facility] Doris Arauz, RN Forms [address] [place], [place] [address] Social History Tobacco Use [...] filedocumented in this encounter Care Teams Manager Drug Safety Relationship Specialty Start Date End Date Lurdes Thomas MD PCP - General 06/18/14 12/11/19 documented as of this encounter
--- OUTSIDE RECORDS SUMMARY | 2021-12-28 18:01 | XMS_ITS | Encounter Summary ---
:1955 Author Organization [facility] Address [address], [place] [address] Care Team Providers Name Role Phone Lurdes Thomas MD Primary Care Provider Encounter Details Date Type Department Care Team Description 05/05/2016 Notes/Orders [place] [facility], [address] corina MUHAMMAD [place], [place] [address] [address] [phone] [place] [phone] (Wo rk) Social History Tobacco [...] treatmentorder should be obtained from the physician. D PIPE LINES SUPERVISOR documented in this encounter Plan of Treatment Not on filedocumented as of this encounter Visit Diagnoses Not on filedocumented in this encounter Care Teams Cruise Counselor Relationship Specialty Start Date End Date Lurdes Thomas MD PCP - General 06/18/14 12/11/19 documented as of this encounter
--- OUTSIDE RECORDS SUMMARY | 2021-12-28 18:01 | XMS_ITS | Encounter Summary ---
:1955 Author Organization [facility] Address [address], [place] [address] Care Team Providers Name Role Phone Lurdes Thomas MD Primary Care Provider Reason for Visit Reason Comments Spine Lumbar Encounter Details Date Type Department Care Team Description 06/04/2015 Office Visit [place] [facility] Chris Cain, Right -sided low back Therapy Aurora Briggs, PT pain with right-sided [address] granados (Primary Dx) [place] [address] [place], [place] [phone] (Wo rk) Social History Tobacco Use Types Packs/Day Years Used Date Smoking Tobacco: Never Smokeless Tobacco: Never Alcohol Use Standard Drinks/Week Comments Yes 0 (1 standard drink = 0.6 oz pure alcoho l) Sex Assigned at Date Recorded Not on file documented as of this encounter Progress Notes Aurora Hickey, PT - 06/23/2015 2:07 PM CST Encounter date: 06/04/2015 Pt : 1955 J[facility] Physical Therapy Progress Note Visit Number: 5 Initial Certification Period: 05/19/2015 to 08/17/15 Referring Provider: Dr. Maria Esther Phan Visit Diagnosis/ICD: Diagnosis ICD-10-CM ICD-9-CM 1. Right-sided low back pain with right-sided sciatica M54.41 724.3 Precautions: none Onset/Referral Date: 05/19/2015 Orders: Evaluate and treat. [facility] Services: Programming RN, Social Work, [...] above OBJ info and- manual therapy (CPT 65508) 10 min joint mobilization, supine end range thrust technique, right and left, repeated twice therapeutic ex (CPT 03376)25 min added hip series of stretches to combine some of the exercises he has been doing ultrasound (CPT 04339) 10 min US to right LB for [...] manual therapy, exercise progression, modalities if needed. EDGE STITCHER HAND documented in this encounter Plan of Treatment Not on filedocumented as of this encounter Visit Diagnoses Diagnosis Right-sided low back pain with right-beck ed sciatica (HRC) - Primary documented in this encounter Care Teams Salmon Gillnet Vessel Operator Relationship Specialty Start Date End Date Lurdes Thomas MD PCP - General 06/18/14 12/11/19 documented as of this encounter
--- OUTSIDE RECORDS SUMMARY | 2021-12-28 18:01 | XMS_ITS | Encounter Summary ---
:1955 Author Organization [employer] Address [address] [address] Care Team Providers Name Role Phone Lurdes Thomas MD Primary Care Provider Reason for Visit Reason Comments Back Pain Encounter Details Date Type Department Care Team Description 12/02/2014 Telephone [place] [facility] Katalina Laughlin, PT Back Pain [address] arriaga [address] [place], [place] [address] [place], [place] [phone] (Wo rk) Social History Tobacco Use [...] schedule. Offered to transfer his care to [facility], which he prefers to do. Suggested scheduling PT visit there as soon as possible. Will send email to PT at [place] to coordinate care. Katalina Laughlin PT Physical Therapist [place] License # [id number] documented in this encounter Plan of Treatment Not on filedocumented as of this encounter Visit Diagnoses Not on filedocumented in this encounter Care Teams Threader Operator Relationship Specialty Start Date End Date Lurdes Thomas MD PCP - General 06/18/14 12/11/19 documented as of this encounter
--- OUTSIDE RECORDS SUMMARY | 2021-12-28 18:01 | XMS_ITS | Encounter Summary ---
:1955 Author Organization [facility] Address [address] [address] Care Team Providers Name Role Phone Lurdes Thomas MD Primary Care Provider Reason for Visit Reason Comments Spine Lumbar Encounter Details Date Type Department Care Team Description 06/10/2015 Office Visit [place] [facility] Chris Cain, Right -sided low back Therapy Aurora Briggs, PT pain with right-sided [address] granados (Primary Dx) [place] [address] [place], [place] [phone] (Wo rk) Social History Tobacco Use Types Packs/Day Years Used Date Smoking Tobacco: Never Smokeless Tobacco: Never Alcohol Use Standard Drinks/Week Comments Yes 0 (1 standard drink = 0.6 oz pure alcoho l) Sex Assigned at Date Recorded Not on file documented as of this encounter Progress Notes Aurora Hickey, PT - 06/23/2015 2:04 PM CST Encounter date: 06/10/2015 Pt : 1955 J[facility] Physical Therapy Progress Note Visit Number: 7 Initial Certification Period: 05/19/2015 to 08/17/15 Referring Provider: Dr. Maria Esther Phan Visit Diagnosis/ICD: Diagnosis ICD-10-CM ICD-9-CM 1. Right-sided low back pain with right-sided sciatica M54.41 724.3 Precautions: none Onset/Referral Date: 05/19/2015 Orders: Evaluate and treat. [facility] Services: Programming RN, Social Work, [...] above OBJ info and- therapeutic ex (CPT 75333)12 min hip series of stretches to combine some of the exercises he has been doing reviewed flexion in step standing, left, than right. He still gets a little glitch on right side side glide left single leg raise in hands/knees position, 5 sec hold manual therapy (CPT 90000) 10 min In left sanchez position, MET to low T and lumbar spine ultrasound (CPT 59507) 11 min US to right LB for 10 min, 1.3 w/cm2, continuous manual therapy (CPT 26312) 12 min soft tissue mobilization use of real estate photographer tool to T and lumbar parsspinals Timed [...] manual therapy, exercise progression, modalities if needed. PACKER documented in this encounter Plan of Treatment Not on filedocumented as of this encounter Visit Diagnoses Diagnosis Right-sided low back pain with right-beck ed sciatica (HRC) - Primary documented in this encounter Care Teams Blue Crabber Relationship Specialty Start Date End Date Lurdes Thomas MD PCP - General 06/18/14 12/11/19 documented as of this encounter
--- OUTSIDE RECORDS SUMMARY | 2021-12-28 18:01 | XMS_ITS | Encounter Summary ---
:1955 Author Organization [facility] Address [address] [address] Care Team Providers Name Role Phone Lurdes Thomas MD Primary Care Provider Reason for Visit Reason Comments Sleep problems Back Pain Questions Encounter Details Date Type Department Care Team Description 12/02/2014 Office Visit [facility] Parashos, Maria Esther Paralysis agitans [address], MD (Primary Dx) Drive [address] [facility] [address] [place], [place] [phone] (Wo rk) Social History Tobacco Use Types [...] Body Mass Index 27.73 07/08/2014 8:56 AM PLASTER MAKER documented in this encounter Patient Instructions Patient InstructionsMaria Esther Phan MD - 12/02/2014 3:43 PM CDT Please call the [facility] nurse line for any questions, [...] agitans documented in this encounter Care Teams Pulp Tester Relationship Specialty Start Date End Date Lurdes Thomas MD PCP - General 06/18/14 12/11/19 documented as of this encounter
--- OUTSIDE RECORDS SUMMARY | 2021-12-28 18:01 | XMS_ITS | Encounter Summary ---
:1955 Author Organization [facility] Address [address] [address] Care Team Providers Name Role Phone Lurdes Thomas MD Primary Care Provider Reason for Visit Reason Comments Spine Lumbar Encounter Details Date Type Department Care Team Description 06/30/2015 Office Visit [place] [facility] Chris Cain, Right -sided low back Therapy Aurora Briggs, PT pain with right-sided [address] granados (Primary Dx) [place] [address] [place], [place] [phone] (Wo rk) Social History Tobacco Use Types Packs/Day Years Used Date Smoking Tobacco: Never Smokeless Tobacco: Never Alcohol Use Standard Drinks/Week Comments Yes 0 (1 standard drink = 0.6 oz pure alcoho l) Sex Assigned at Date Recorded Not on file documented as of this encounter Progress Notes Aurora Hickey, PT - 06/30/2015 11:02 AM CST Encounter date: 06/30/2015 Pt : 1955 Jasmine [facility] Physical Therapy Progress Note Visit Number: 11 Initial Certification Period: 05/19/2015 to 08/17/15 Referring Provider: Dr. Maria Esther Phan Visit Diagnosis/ICD: Diagnosis ICD-10-CM ICD-9-CM 1. Right-sided low back pain with right-sided sciatica M54.41 724.3 Precautions: none Onset/Referral Date: 05/19/2015 Orders: Evaluate and treat. [facility] Services: Programming RN, Social [...] above OBJ info and- therapeutic ex (CPT 26671)20 min reviewed flexion in step standing, left, [...] PA pressure on spinal segments ultrasound (CPT 14147) 12 min US to right LB for 10 min, 1.3 w/cm2, continuous manual therapy (CPT 45608) 15 min joint mobilization to lumbar spine gr 3 soft tissue mobilization, and use of injection maintenance technician tool to T and lumbar paraspinals Afterwards [...] has not contacted his insurance company yet STER CLERK documented in this encounter Plan of Treatment Not on filedocumented as of this encounter Visit Diagnoses Diagnosis Right-sided low back pain with right-beck ed sciatica (HRC) - Primary documented in this encounter Care Teams Crimping Machine Operator Relationship Specialty Start Date End Date Lurdes Thomas MD PCP - General 06/18/14 12/11/19 documented as of this encounter
--- OUTSIDE RECORDS SUMMARY | 2021-12-28 18:01 | XMS_ITS | Encounter Summary ---
:1955 Author Organization [facility] Address [address], [place] [address] Care Team Providers Name Role Phone Lurdes Thomas MD Primary Care Provider Reason for Visit Reason Comments Spine Lumbar Encounter Details Date Type Department Care Team Description 06/08/2015 Office Visit [place] [facility] Chris Cain, Right -sided low back Therapy Aurora Briggs, PT pain with right-sided [address] granados (Primary Dx) [place] [address] [place], [place] [phone] (Wo rk) Social History Tobacco Use Types Packs/Day Years Used Date Smoking Tobacco: Never Smokeless Tobacco: Never Alcohol Use Standard Drinks/Week Comments Yes 0 (1 standard drink = 0.6 oz pure alcoho l) Sex Assigned at Date Recorded Not on file documented as of this encounter Progress Notes Aurora Hickey, PT - 06/23/2015 2:05 PM CST Encounter date: 06/08/2015 Pt : 1955 [facility] Progress Note Visit Number: 6) Initial Certification Period: 05/19/2015 to 08/17/15 Referring Provider: Dr. Maria Esther Phan Visit Diagnosis/ICD: Diagnosis ICD-10-CM ICD-9-CM 1. Right-sided low back pain with right-sided sciatica M54.41 724.3 Precautions: none Onset/Referral Date: 05/19/2015 Orders: Evaluate and treat. [facility] Services: Programming RN, Social Work, therapy in the past Exacerbation Date: 04/21/2015 Last Referring MD Visit: 05/19/2015 SUBJECTIVE: Andrew reports symptoms are less with sit tostand, but still present. Has been compliant with ex. There was 1 night/day, when he was completl;y pain free OBJECTIVE Current Objective Findings: OSW [...] above OBJ info and- manual therapy (CPT 06176) 10 min joint mobilization, supine end range thrust technique, right and left, repeated twice therapeutic ex (CPT 92725)25 min hip series of stretches to combine some of the exercises he has been doing added flexion in step standing, left, than right side glide left added single leg raise in hands/knees position, 5 sec hold ultrasound (CPT 40318) 12 min US to right LB for 10 min, 1.3 w/cm2, continous Timed Code Treatment Minutes: 47 Total Treatment [...] manual therapy, exercise progression, modalities if needed. NEL TURNER documented in this encounter Plan of Treatment Not on filedocumented as of this encounter Visit Diagnoses Diagnosis Right-sided low back pain with right-beck ed sciatica (HRC) - Primary documented in this encounter Care Teams Quality Assurance Monitor Relationship Specialty Start Date End Date Lurdes Thomas MD PCP - General 06/18/14 12/11/19 documented as of this encounter
--- OUTSIDE RECORDS SUMMARY | 2021-12-28 18:01 | XMS_ITS | Encounter Summary ---
:1955 Author Organization [facility] Address [address] [place] [address] Care Team Providers Name Role Phone Lurdes Thomas MD Primary Care Provider Reason for Visit Reason Comments Research Encounter Details Date Type Department Care Team Description 05/21/2015 Telephone [place] [facility] Maria Esther Phan MD Research [address] [place], [place] [address] [place] [address] (Wo rk) Social History Tobacco [...] [facility]. [facility] would like to pursue the study and understands that enrollment may close before he hasbeen stable for 60 days on a different anti-depressant. Zoloft is an acceptable medication. Pharmacyhas been updated. Please write specific instructions on this switch. Y MAKER documented in this encounter Plan of Treatment Not on filedocumented as of this encounter Visit Diagnoses Not on filedocumented in this encounter Care Teams Molder Setter Relationship Specialty Start Date End Date Lurdes Thomas MD PCP - General 06/18/14 12/11/19 documented as of this encounter
--- OUTSIDE RECORDS SUMMARY | 2021-12-28 18:01 | XMS_ITS | Encounter Summary ---
:1955 Author Organization [facility] Address [address] [place] [address] Care Team Providers Name Role Phone Lurdes Thomas MD Primary Care Provider Reason for Visit Reason Comments Device Check Consult/Transfer Care (Routine) - Closed Specialty Diagnoses / Procedures Referred By Contact Refer red To Contact Diagnoses Parkinson's disease ([facility]) Maria Esther Phan MD [address] [place], [place] [address] Referral ID Status Reason Start Date Expiration Date Visits Requ ested Visits Authorized [id number] Closed 08/08/2017 11/07/2018 1 1 Encounter Details Date Type Department Care Team Description 08/08/2017 Nursing Visit [facility] Shawnee Hilario, Parkinson's disease ([facility]) (P rimary Dx); [address] RN 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
--- OUTSIDE RECORDS SUMMARY | 2021-12-28 18:01 | XMS_ITS | Encounter Summary ---
:1955 Author Organization [facility] Address [address] [address] Care Team Providers Name Role Phone Lurdes Thomas MD Primary Care Provider Reason for Visit Reason Comments Spine Lumbar Encounter Details Date Type Department Care Team Description 05/26/2015 Office Visit [place] [facility] Chris Cain, Right -sided low back Therapy Aurora Briggs, PT pain with right-sided [address] granados (Primary Dx) [place] [address] [place], [place] [phone] (Wo rk) Social History Tobacco Use Types Packs/Day Years Used Date Smoking Tobacco: Never Smokeless Tobacco: Never Alcohol Use Standard Drinks/Week Comments Yes 0 (1 standard drink = 0.6 oz pure alcoho l) Sex Assigned at Date Recorded Not on file documented as of this encounter Progress Notes Aurora Hickey, PT - 05/26/2015 10:30 AM CST Encounter date: 05/26/2015 Pt : 1955 [facility] Physical Therapy Progress Note Visit Number: 2 Initial Certification Period: 05/19/2015 to 08/17/15 Referring Provider: Dr. Maria Esther Phan Visit Diagnosis/ICD: Diagnosis ICD-10-CM ICD-9-CM 1. Right-sided low back pain with right-sided sciatica M54.41 724.3 Precautions: none Onset/Referral Date: 05/19/2015 Reason for Referral: -Outpatient PT. Orders: Evaluate and treat. [facility] Services: Programming RN, Social Work, therapy in the past Exacerbation Date: 04/21/2015 Last Referring MD Visit: 05/19/2015 SUBJECTIVE: Andrew is new to me today, initially assessed at [facility], and referred to [facility] location for convenience, and orthopedic care [...] with REIL Treatment/Education Today: therapeutic ex (CPT 94927)15 min time spent with orthopedic assessment manual therapy (CPT 86410) 15 min in prone, general mobilization. afterwards, (-) prone knee flexion test, but pain with transitional movements In supine, end range rotational thrust to the right, repeated twice, and to the left, with cavitation. Afterwards, no pain with supine to sit, and sit to stand. still is shifted, but no pain therapeutic ex (CPT 61670) 15 min Added for HEP: supine DKTC, [...] can see what will work for him HER AIDE CLERICAL documented in this encounter Plan of Treatment Not on filedocumented as of this encounter Visit Diagnoses Diagnosis Right-sided low back pain with right-beck ed sciatica (HRC) - Primary documented in this encounter Care Teams Subsorter Relationship Specialty Start Date End Date Lurdes Thomas MD PCP - General 06/18/14 12/11/19 documented as of this encounter
--- OUTSIDE RECORDS SUMMARY | 2021-12-28 18:01 | XMS_ITS | Encounter Summary ---
:1955 Author Organization [employer] Address [address] [address] Care Team Providers Name Role Phone Lurdes Thomas MD Primary Care Provider Reason for Visit Reason Comments Other Encounter Details Date Type Department Care Team Description 12/09/2014 Telephone [place] [facility] Doris Arauz, RN Other [address] [place], [place] [address] Social History Tobacco Use [...] agitans documented in this encounter Care Teams Nitrocellulose Maker Relationship Specialty Start Date End Date Lurdes Thomas MD PCP - General 06/18/14 12/11/19 documented as of this encounter
--- OUTSIDE RECORDS SUMMARY | 2021-12-28 18:01 | XMS_ITS | Encounter Summary ---
:1955 Author Organization [employer] Address [address] [address] Care Team Providers Name Role Phone Lurdes Thomas MD Primary Care Provider Encounter Details Date Type Department Care Team Description 05/06/2016 Notes/Orders [place] [facility] P, OTR/L [address] [place], [place] [address] [facility] [phone] [place] [address] (Wo rk) Social History Tobacco [...] physician. RODRIGUE Gandhi/Stefan 05/06/2016, 9:56 AM ' NESS SUPPORT SPECIALIST documented in this encounter Plan of Treatment Not on filedocumented as of this encounter Visit Diagnoses Not on filedocumented in this encounter Care Teams Project Management Manager Relationship Specialty Start Date End Date Lurdes Thomas MD PCP - General 06/18/14 12/11/19 documented as of this encounter
--- OUTSIDE RECORDS SUMMARY | 2021-12-28 18:01 | XMS_ITS | Encounter Summary ---
:1955 Author Organization [facility] Address [address] [place] [address] Care Team Providers Name Role Phone Lurdes Thomas MD Primary Care Provider Reason for Visit Reason Comments QUESTIONS, GENERAL Encounter Details Date Type Department Care Team Description 07/06/2017 Telephone [place] Shawnee Hilario, RN QUESTIONS, GENERAL [address] [place], [place] [address] Social History Tobacco Use [...] seen next and get his battery checked. OPRESS OPERATOR documented in this encounter Plan of Treatment Not on filedocumented as of this encounter Visit Diagnoses Not on filedocumented in this encounter Care Teams Retail Event And Sales Assistant Relationship Specialty Start Date End Date Lurdes Thomas MD PCP - General 06/18/14 12/11/19 documented as of this encounter
--- OUTSIDE RECORDS SUMMARY | 2021-12-28 18:01 | XMS_ITS | Encounter Summary ---
:1955 Author Organization [employer] Address [address] [address] Care Team Providers Name Role Phone Lurdes Thomas MD Primary Care Provider Reason for Visit Reason Comments Spine Lumbar Encounter Details Date Type Department Care Team Description 07/16/2015 Office Visit [place] [facility] Chris Cain, Right -sided low back Therapy Aurora Briggs, PT pain with right-sided [address] granados (Primary Dx) [place] [address] [place], [place] [phone] (Wo rk) Social History Tobacco Use Types Packs/Day Years Used Date Smoking Tobacco: Never Smokeless Tobacco: Never Alcohol Use Standard Drinks/Week Comments Yes 0 (1 standard drink = 0.6 oz pure alcoho l) Sex Assigned at Date Recorded Not on file documented as of this encounter Progress Notes Aurora Hickey, PT - 07/19/2015 1:13 PM CST Encounter date: 07/16/2015 Pt : 1955 [facility] Physical Therapy Progress Note/Discharge Summary Visit Number: 14 Initial Certification Period: 05/19/2015 to 08/17/15 Referring Provider: Dr. Maria Esther Phan Visit Diagnosis/ICD: Diagnosis ICD-10-CM ICD-9-CM 1. Right-sided low back pain with right-sided sciatica M54.41 724.3 Precautions: none Onset/Referral Date: 05/19/2015 Orders: Evaluate and treat. [facility] Services: Programming RN, Social Work, [...] above OBJ info and- therapeutic ex (CPT 76593)15 min reviewed /discussed HEP, home management, body mechanics with lifting, turning, pivoting ultrasound (CPT 27260) 12 min US to right LB for 10 min, 1.3 w/cm2, continuous manual therapy (CPT 77587) 18 min joint mobilization to lumbar spine [...] 75- 85% improvement Plan: will DC to [facility] at this time, encouraged Andrew to call if any questions, or return if needed Encounter Date: 07/16/2015 Pt : 1955 [facility] Physical Therapy Discharge Summary Patient was seen [...] to return to therapy if symptoms recur. BOOKER documented in this encounter Plan of Treatment Not on filedocumented as of this encounter Visit Diagnoses Diagnosis Right-sided low back pain with right-beck ed sciatica (HRC) - Primary documented in this encounter Care Teams Pusher Runner Relationship Specialty Start Date End Date Lurdes Thomas MD PCP - General 06/18/14 12/11/19 documented as of this encounter
--- OUTSIDE RECORDS SUMMARY | 2021-12-28 18:01 | XMS_ITS | Encounter Summary ---
:1955 Author Organization [facility] Address [address] [address] Care Team Providers Name Role Phone Lurdes Thomas MD Primary Care Provider Reason for Visit Reason Comments Paperwork Gocovri Encounter Details Date Type Department Care Team Description 08/09/2017 Notes/Orders [place] [facility] Doris Arauz, RN [address] corina [place], [place] [address] Social History Tobacco Use Types Packs/Day Years Used Date Smoking Tobacco: Never Smokeless Tobacco: Never Alcohol Use Standard Drinks/Week Comments Yes 0 (1 standard drink = 0.6 oz pure alcoho l) Sex Assigned at Date Recorded Not on file documented as of this encounter Progress Notes Doris Arauz RN - 08/09/2017 2:43 PM CDT Faxed completed [employer] paperwork and Rx to [employer]. FAX: [phone] documented in this encounter Plan of Treatment Not on filedocumented as of this encounter Visit Diagnoses Not on filedocumented in this encounter Care Teams Hair Blender Relationship Specialty Start Date End Date Lurdes Thomas MD PCP - General 06/18/14 12/11/19 documented as of this encounter
--- OUTSIDE RECORDS SUMMARY | 2021-12-28 18:01 | XMS_ITS | Encounter Summary ---
:1955 [facility] Address [address] [address] Care Team Providers Name Role Phone Lurdes Thomas MD Primary Care Provider Reason for Visit Reason Comments QUESTIONS, GENERAL Encounter Details Date Type Department Care Team Description 05/04/2018 Telephone [facility] Walker, GENERAL [facility] MD Prem Neurology [address] [facility] [address] [place] [phone] (Wo rk) Social History Tobacco Use Types [...] advise . Jeannette Michael 05/04/2018, 10:51 AM FURNACE TENDER documented in this encounter Plan of Treatment Not on filedocumented as of this encounter Visit Diagnoses Not on filedocumented in this encounter Care Teams Meat Press Operator Relationship Specialty Start Date End Date Lurdes Thomas MD PCP - General 06/18/14 12/11/19 documented as of this encounter
--- OUTSIDE RECORDS SUMMARY | 2021-12-28 18:01 | XMS_ITS | Encounter Summary ---
:1955 Author Organization [facility] Address [address], [place] [address] Care Team Providers Name Role Phone Lurdes Thomas MD Primary Care Provider Reason for Referral Consult/Transfer Care (Routine) - Closed Specialty Diagnoses / Procedures Referred By Contact Refer red To Contact Diagnoses Parkinson's disease (HRC) Maria Esther Phan MD [address] [place], [place] [address] Referral ID Status Reason Start Date Expiration Date Visits Requ ested Visits Authorized [id number] Closed 08/08/2017 11/07/2018 1 1 Scheduling Instructions Your provider has recommended an appoint ment with [facility]. You may call [phone] or marino bardales [phone] to schedule your appointment. If you do [...] Radha Neurology Maria Esther Phan Parkinson's disease [address] Dae Amaro MD ([facility]) (Primary Dx) Drive [address] [facility] [address] [place], [place] [phone] (Wo rk) Social History Tobacco Use [...] Body Mass Index 24.99 07/08/2014 8:56 AM HEALTHCARE SOCIAL WORKER documented in this encounter Patient Instructions Patient [...] can assist with med reminders, such as Missingames, that allows you to program times and different reminders. documented in this encounter Progress Notes Maria Esther Phan MD - 08/08/2017 12:00 PM CDT NAME: DEIDRE PANG MR#: [id number] CSN: [id number] AUTHENTICATING CLINICIAN: Maria Esther Phan MD CONFIRM #: [id number] LOC: 57771 CLINIC PROGRESS NOTE DATE OF VISIT: 08/08/2017 : 1955 LOCATION: [facility]. HISTORY OF PRESENT ILLNESS: Mr. Pang is [...] lower extremities distally.Coordination: No tremor seen today. Mufsgo-narh-wsagsh is adequate. There is tfkb-id-pxggwhip dyskinesia, more so on the left than [...] sooner if necessary. SAP:MEDQ C: CONFIRM #: [id number] documented in this encounter Plan of Treatment Scheduled Referrals Name Type Priority Associated Diagnoses Order S chedule DBS PROGRAMMING CONSULT Referral Routine Parkinson's disea se Ordered: 08/08/2017 (AMB) (HR) documented as of this encounter Visit Diagnoses Diagnosis Parkinson's disease (HRC) - Primary documented in this encounter Care Teams Hot Tar Roofer Relationship Specialty Start Date End Date Lurdes Thomas MD PCP - General 06/18/14 12/11/19 documented as of this encounter
--- OUTSIDE RECORDS SUMMARY | 2021-12-28 18:01 | XMS_ITS | Encounter Summary ---
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 Discussed the process in general and provided [...] on filedocumented in this encounter Care Teams Deliverer Outside Relationship Specialty Start Date End Date Lurdes Thomas MD PCP - General 06/18/14 12/11/19 documented as of this encounter
--- OUTSIDE RECORDS SUMMARY | 2021-12-28 18:01 | XMS_ITS | Encounter Summary ---
:1955 Author Organization [email or web address] Address [address] [address] Care Team Providers Name Role Phone Lurdes Thomas MD Primary Care Provider Reason for Visit Reason Comments Spine Lumbar Encounter Details Date Type Department Care Team Description 05/28/2015 Office Visit [place] [facility] Chris Cain, Right -sided low back Therapy Aurora Briggs, PT pain with right-sided [address] granados (Primary Dx) [place] [address] [place], [place] [phone] (Wo rk) Social History Tobacco Use Types Packs/Day Years Used Date Smoking Tobacco: Never Smokeless Tobacco: Never Alcohol Use Standard Drinks/Week Comments Yes 0 (1 standard drink = 0.6 oz pure alcoho l) Sex Assigned at Date Recorded Not on file documented as of this encounter Progress Notes Aurora Hickey, PT - 05/28/2015 12:14 PM CST Encounter date: 05/28/2015 Pt : 1955 [facility] Physical Therapy Progress Note Visit Number: 2 Initial Certification Period: 05/19/2015 to 08/17/15 Referring Provider: Dr. Maria Esther Phan Visit Diagnosis/ICD: Diagnosis ICD-10-CM ICD-9-CM 1. Right-sided low back pain with right-sided sciatica M54.41 724.3 Precautions: none Onset/Referral Date: 05/19/2015 Reason for Referral: -Outpatient PT. Orders: Evaluate and treat. [facility] Services: Programming RN, Social Work, [...] with REIL Treatment/Education Today: therapeutic ex (CPT 26050)15 min time spent with orthopedic assessment manual therapy (CPT 02535) 15 min in prone, general mobilization. In supine, end range rotational thrust to the right, repeated twice, and to the left, with cavitation. Afterwards, no pain with supine to sit, and sit to stand. still is shifted, but no pain ultrasound (CPT 93655) 12 min Added: US to right LB for 10 min, 1.3 w/cm2, continous therapeutic ex (CPT 87414) 15 min Reviewed and practiced his HEP: [...] Advised to use lumbar support with sitting OGRAPHIC INTELLIGENCE OFFICER documented in this encounter Plan of Treatment Not on filedocumented as of this encounter Visit Diagnoses Diagnosis Right-sided low back pain with right-beck ed sciatica (HRC) - Primary documented in this encounter Care Teams Coil Winder Relationship Specialty Start Date End Date Lurdes Thomas MD PCP - General 06/18/14 12/11/19 documented as of this encounter
--- OUTSIDE RECORDS SUMMARY | 2021-12-28 18:01 | XMS_ITS | Encounter Summary ---
:1955 Author Organization [facility] Address [address], [place] [address] Care Team Providers Name Role Phone Lurdes Thomas MD Primary Care Provider Reason for Visit Reason Comments Prior Authorization For Medication Gocovri Encounter Details Date Type Department Care Team Description 08/15/2017 Telephone [facility] Doris Arauz, Prior Authorization For [address] [place] gynecology teacher (Gocovri) [place], [place] [address] Social History Tobacco Use Types Packs/Day Years [...] phone. Pt's Insurer: Eleazar Insurer's contact #: [phone] Name of Drug: Goocovri 137mg Dx for Drug: dyskinesia due to PD medications Tried/failed drugs: Amantadine Medication was approved. Approval dates: 07/16/17 to 08/15/18 Case#: [id number] FYI documented in this encounter Plan of Treatment Not on filedocumented as of this encounter Visit Diagnoses Not on filedocumented in this encounter Care Teams Pulp Screen Operator Relationship Specialty Start Date End Date Lurdes Thomas MD PCP - General 06/18/14 12/11/19 documented as of this encounter
--- OUTSIDE RECORDS SUMMARY | 2021-12-28 18:01 | XMS_ITS | Encounter Summary ---
:1955 Author Organization [facility] Address [address] [address] Care Team Providers Name Role Phone Lurdes Thomas MD Primary Care Provider Reason for Visit Reason Comments Refill Encounter Details Date Type Department Care Team Description 07/31/2018 Telephone [facility] Shawnee Hilario, RN Refill [address] [place], [place] [address] Social History Tobacco Use [...] Hilario RN - 07/31/2018 10:11 AM CDT [facility] calling for refill on GoCovri. To be faxed to [phone]. [facility] not [facility]. Please take care of. documented in this encounter Plan of Treatment Not on filedocumented as of this encounter Visit Diagnoses Not on filedocumented in this encounter Care Teams Production Hardener Relationship Specialty Start Date End Date Serum, Lurdes C, MD PCP - General 06/18/14 12/11/19 documented as of this encounter
--- OUTSIDE RECORDS SUMMARY | 2021-12-28 18:01 | XMS_ITS | Encounter Summary ---
:1955 Author Organization [facility] Address [address] [place] [address] Care Team Providers Name Role Phone Lurdes Thomas MD Primary Care Provider Reason for Visit Reason Comments Medication Questions Encounter Details Date Type Department Care Team Description 06/07/2018 Telephone [facility] Esther Walker Medicat ion Questions [facility] MD Prem Neurology [address] [facility] [address] [place] [address] [place], [place] [phone] (Wo rk) Social History Tobacco Use Types [...] of Dr. Phan' recommendations. Jeannette Porras RN RUCTIONAL AIDE Maria Esther Phan MD - 06/08/2018 11:45 AM CST No problem with lansoprazole. RUCTIONAL AIDE Yenny Ray - 06/07/2018 4:40 PM CST Pt natasha calling stating that pt was given a new medication by his PCP for acid reflex but they would like to know if Dr. Phan is ok with pt taking this medication. Pt was started on lansoprazole to treat the acid reflex. Please Advise RUCTIONAL AIDE documented in this encounter Plan of Treatment Not on filedocumented as of this encounter Visit Diagnoses Not on filedocumented in this encounter Care Teams Certified Orthotic Fitter Relationship Specialty Start Date End Date Lurdes Thomas MD PCP - General 06/18/14 12/11/19 documented as of this encounter
--- OUTSIDE RECORDS SUMMARY | 2021-12-28 18:01 | XMS_ITS | Encounter Summary ---
:1955 Author Organization [facility] Address [address] [place] [address] Care Team Providers Name Role Phone Lurdes Thomas MD Primary Care Provider Reason for Visit Reason Comments Questions Encounter Details Date Type Department Care Team Description 11/28/2014 Telephone [facility] Doris Arauz RN Questions [address] [place], [place] [address] Social History Tobacco Use [...] on filedocumented in this encounter Care Teams Solution Spec Relationship Specialty Start Date End Date Lurdes Thomas MD PCP - General 06/18/14 12/11/19 documented as of this encounter
--- OUTSIDE RECORDS SUMMARY | 2021-12-28 18:01 | XMS_ITS | Encounter Summary ---
:1955 Author Organization [facility] Address [address] [address] Care Team Providers Name Role Phone Lurdes Thomas MD Primary Care Provider Reason for Visit Reason Comments Spine Lumbar Encounter Details Date Type Department Care Team Description 07/09/2015 Office Visit [place] [facility] Chris Cain, Right -sided low back Therapy Aurora Briggs, PT pain with right-sided [address] granados (Primary Dx) [place] [address] [place], [place] [phone] (Wo rk) Social History Tobacco Use Types Packs/Day Years Used Date Smoking Tobacco: Never Smokeless Tobacco: Never Alcohol Use Standard Drinks/Week Comments Yes 0 (1 standard drink = 0.6 oz pure alcoho l) Sex Assigned at Date Recorded Not on file documented as of this encounter Progress Notes Aurora Hickey, PT - 07/09/2015 8:51 AM CST Encounter date: 07/09/2015 Pt : 1955 [facility] Physical Therapy Progress Note Visit Number: 13 Initial Certification Period: 05/19/2015 to 08/17/15 Referring Provider: Dr. Maria Esther Phan Visit Diagnosis/ICD: Diagnosis ICD-10-CM ICD-9-CM 1. Right-sided low back pain with right-sided sciatica M54.41 724.3 Precautions: none Onset/Referral Date: 05/19/2015 Orders: Evaluate and treat. 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
--- OUTSIDE RECORDS SUMMARY | 2021-12-28 18:01 | XMS_ITS | Encounter Summary ---
:1955 Author Organization [facility] Address [address] [place] [address] Care Team Providers Name Role Phone Lurdes Thomas MD Primary Care Provider Reason for Referral Specialty Diagnoses / Procedures Referred By Contact Refer red To Contact Maria Esther Phan MD [address] [place], [place] [address] Referral ID Status Reason Start Date Expiration Date Visits Requ ested Visits Authorized SET UP Reason for Visit Reason Comments Device Check Encounter Details Date Type Department Care Team Description 05/19/2015 Nursing Visit [facility] Shawnee Hilario, PD (Parkinson's [address] RN disease) [place] [address] Social History Tobacco Use Types [...] implantation. Surgeon:Dr. Gonzalez [facility] date/location: 09/09/24 [place] Battery replacement: None Device type: Activa PC [...] point I readjusted his range on patient visual basic programmer. Patient visual basic programmer range Left 2.4-2.8 Right 2.3-2.7 Total face to face programming time: 50 minutes Follow up: 6 months Supervising provider: Dr. Maria Esther Hilario, RN SET UP documented in this encounter Plan of Treatment Scheduled Referrals Name Type Priority Associated Diagnoses Order S chedule DBS PROGRAMMING CONSULT Referral Routine PD (Parkinson's O rdered: 05/19/2015, (AMB) disease) ([facility]) Expires: 04/22 documented as of this encounter Visit Diagnoses Diagnosis PD (Parkinson's disease) ([facility]) Paralysis agitans documented in this encounter Care Teams Finishing Area Supervisor Relationship Specialty Start Date End Date Lurdes Thomas MD PCP - General 06/18/14 12/11/19 documented as of this encounter
--- OUTSIDE RECORDS SUMMARY | 2021-12-28 18:01 | XMS_ITS | Encounter Summary ---
:1955 Author Organization [facility] Address [address] [address] Care Team Providers Name Role Phone Lurdes Thomas MD Primary Care Provider Reason for Visit Reason Comments No Show Encounter Details Date Type Department Care Team Description 03/03/2015 Telephone [facility] Shawnee Hilario, RN No Show [address] [place], [place] [address] Social History Tobacco Use [...] and leave him a message. I called [phone] and it sounded like someone answered but no voice heard. Iwill try later. documented in this encounter Plan of Treatment Not on filedocumented as of this encounter Visit Diagnoses Not on filedocumented in this encounter Care Teams Distillation Operator Helper Relationship Specialty Start Date End Date Lurdes Thomas MD PCP - General 06/18/14 12/11/19 documented as of this encounter
--- OUTSIDE RECORDS SUMMARY | 2021-12-28 18:01 | XMS_ITS | Encounter Summary ---
:1955 Author [address] [facility] Address [address] [address] Care Team Providers Name Role Phone Lurdes Thomas MD Primary Care Provider Reason for Visit Reason Comments Spine Lumbar Encounter Details Date Type Department Care Team Description 06/16/2015 Office Visit [facility] Chris Cain, Right -sided low back Therapy Aurora Briggs, PT pain with right-sided [address] granados (Primary Dx) [place] [address] [place], [place] [phone] (Wo rk) Social History Tobacco Use Types Packs/Day Years Used Date Smoking Tobacco: Never Smokeless Tobacco: Never Alcohol Use Standard Drinks/Week Comments Yes 0 (1 standard drink = 0.6 oz pure alcoho l) Sex Assigned at Date Recorded Not on file documented as of this encounter Progress Notes Aurora Hickey, PT - 06/23/2015 2:03 PM CST Encounter date: 06/16/2015 Pt : 1955 [facility] Progress Note Visit Number: 8 Initial Certification Period: 05/19/2015 to 08/17/15 Referring Provider: Dr. Maria Esther Phan Visit Diagnosis/ICD: Diagnosis ICD-10-CM ICD-9-CM 1. Right-sided low back pain with right-sided sciatica M54.41 724.3 Precautions: none Onset/Referral Date: 05/19/2015 Orders: Evaluate and treat. [facility] Services: Programming RN, Social [...] above OBJ info and- therapeutic ex (CPT 84394)20 min Discussed hip series of stretches to [...] stretch with this, no pain. ultrasound (CPT 61984) 11 min US to right LB for 10 min, 1.3 w/cm2, continuous manual therapy (CPT 88613) 12 min soft tissue mobilization, and use of baby formula mixer tool to T and lumbar parsspinals Timed [...] therapy beyondinitial 6 that are set up IFIED COATINGS INSPECTOR documented in this encounter Plan of Treatment Not on filedocumented as of this encounter Visit Diagnoses Diagnosis Right-sided low back pain with right-beck ed sciatica (HRC) - Primary documented in this encounter Care Teams Bunk House Worker Relationship Specialty Start Date End Date Lurdes Thomas MD PCP - General 06/18/14 12/11/19 documented as of this encounter
--- OUTSIDE RECORDS SUMMARY | 2021-12-28 18:01 | XMS_ITS | Encounter Summary ---
:1955 Author Organization [facility] Address [address] [place] [address] Care Team Providers Name Role Phone Lurdes Thomas MD Primary Care Provider Reason for Visit Reason Comments Medication Questions Encounter Details Date Type Department Care Team Description 12/08/2014 Telephone [facility] Sheri Pearson, Medication Questions [address] corina [place], [place] [address] Social History Tobacco Use Types Packs/Day Years Used Date Smoking Tobacco: Never Smokeless Tobacco: Never Alcohol Use Standard Drinks/Week Comments Yes 0 (1 standard drink = 0.6 oz pure alcoho l) Sex Assigned at Date Recorded Not on file documented as of this encounter Nursing Notes Sheri Pearson RN - 12/08/2014 2:14 PM CDT Spoke with Andrew and told him to remove the neupro patch as soon as possible and he agreed to come intomorrow to see Doris for programming. Sheri Pearson RN - 12/08/2014 10:50 AM CDT Spoke with Andrew and he was instructed by Dr Phan last week to stop the neupro patch. However, when he stopped it his walking got to be very difficult. He restarted the patch today but was wonderingif he got in tomorrow to see one of the DBS nurses if an adjustment would be helpful. I am checking to see if there are any openings in the schedule. documented in this encounter Plan of Treatment Not on filedocumented as of this encounter Visit Diagnoses Not on filedocumented in this encounter Care Teams Scarfer Relationship Specialty Start Date End Date Lurdes Thomas MD PCP - General 06/18/14 12/11/19 documented as of this encounter
--- OUTSIDE RECORDS SUMMARY | 2021-12-28 18:01 | XMS_ITS | Encounter Summary ---
:1955 Author Organization [facility] Address [address] [address] Care Team Providers Name Role Phone Lurdes Thomas MD Primary Care Provider Reason for Visit Reason Comments Spine Lumbar Encounter Details Date Type Department Care Team Description 07/02/2015 Office Visit [place] [facility] Chris Cain, Right -sided low back Therapy Aurora Briggs, PT pain with right-sided [address] granados (Primary Dx) [place] [address] [place], [place] [phone] (Wo rk) Social History Tobacco Use Types Packs/Day Years Used Date Smoking Tobacco: Never Smokeless Tobacco: Never Alcohol Use Standard Drinks/Week Comments Yes 0 (1 standard drink = 0.6 oz pure alcoho l) Sex Assigned at Date Recorded Not on file documented as of this encounter Progress Notes Aurora Hickey, PT - 07/02/2015 11:56 AM CST Encounter date: 07/02/2015 Pt : 1955 [facility] Physical Therapy Progress Note Visit Number: 12 Initial Certification Period: 05/19/2015 to 08/17/15 Referring Provider: Dr. Maria Esther Phan Visit Diagnosis/ICD: Diagnosis ICD-10-CM ICD-9-CM 1. Right-sided low back pain with right-sided sciatica M54.41 724.3 Precautions: none Onset/Referral Date: 05/19/2015 Orders: Evaluate and treat. [facility] Services: Programming RN, Social Work, [...] above OBJ info and- therapeutic ex (CPT 47867)20 min reviewed and practiced H/K's position cat camel and hand knee rock,and opp arm/leg raise ultrasound (CPT 91917) 10 min US to right LB for 10 min, 1.3 w/cm2, continuous manual therapy (CPT 80579) 15 min joint mobilization to lumbar spine gr 3 soft tissue mobilization, and use of hole digger operator tool to T and lumbar paraspinals Afterwards [...] his neurologist for his brain stimulator recheck WARE VERIFICATION ENGINEER documented in this encounter Plan of Treatment Not on filedocumented as of this encounter Visit Diagnoses Diagnosis Right-sided low back pain with right-beck ed sciatica (HRC) - Primary documented in this encounter Care Teams Louver Door Assembler Relationship Specialty Start Date End Date Lurdes Thomas MD PCP - General 06/18/14 12/11/19 documented as of this encounter
--- OUTSIDE RECORDS SUMMARY | 2021-12-28 18:01 | XMS_ITS | Encounter Summary ---
:1955 Author Organization [employer] Address [address] [address] Care Team Providers Name Role Phone Lurdes Thomas MD Primary Care Provider Reason for Visit Reason Comments Social Service Encounter Details Date Type Department Care Team Description 05/19/2015 Office Visit [facility]i Beverly, Parkinson' s disease Services CHARGE LOADER (Primary Dx) [address] [place] [address] Social History Tobacco Use Types [...] stress and workplace environment. 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 He is trying to do parts of [...] information provided for future concerns or questions. KDOWN MILL OPERATOR documented in this encounter Plan of Treatment Not on filedocumented as of this encounter Visit Diagnoses Diagnosis Parkinson's disease (HRC) - Primary documented in this encounter Care Teams End Frazer Relationship Specialty Start Date End Date Lurdes Thomas MD PCP - General 06/18/14 12/11/19 documented as of this encounter
--- OUTSIDE RECORDS SUMMARY | 2021-12-28 18:01 | XMS_ITS | Encounter Summary ---
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 [address] [place], [place] [phone] Social History Tobacco Use Types Packs/Day Years Used Date Smoking Tobacco: Never Smokeless Tobacco: Never Alcohol Use Standard Drinks/Week Comments Yes 0 (1 standard drink = 0.6 oz pure alcoho l) Sex Assigned at Date Recorded Not on file documented as of this encounter Last Filed Vital Signs Vital Sign Reading Time Taken Comments Blood Pressure 118/73 05/04/2018 3:45 PM WIDTH STRIPPER Pulse 85 05/04/2018 3:45 PM WIDTH STRIPPER Temperature - - Respiratory Rate - - Oxygen Saturation - - Inhaled Oxygen Concentration - - Weight 80.1 kg (176 lb 9.6 oz) 05/04/2018 3:45 PM WIDTH STRIPPER Height 185.4 cm (6' 1) 05/04/2018 3:45 PM WIDTH STRIPPER Body Mass Index 23.3 05/04/2018 3:45 PM WIDTH STRIPPER documented in this encounter Patient Instructions Patient InstructionsRichard Phan MD - 05/04/2018 3:45 PM CST A good site to look for clinical trials in Parkinson's is clinicaltrials.gov H STRIPPER documented in this encounter Progress Notes Richard Phan MD - 05/04/2018 12:00 AM CST DEIDRE PANG CSN: [id number] CLINIC NOTE NEUROLOGY PROGRESS NOTE DATE OF SERVICE: 05/04/2018 : 1955 CHIEF COMPLAINT: Followup Parkinson's. HISTORY OF PRESENT ILLNESS: Mr. Pang was seen in the company of his in followup of his Parkinson's. Last time I saw him was in July at [place]. He has done reasonably well since then. [...] without abnormal responses. There are no tremors. Nyzopa-eedd-jxkitt and fxew-eoov-nwdz are accurate. There is minimal if any [...] visit: 15 minutes. 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
--- OUTSIDE RECORDS SUMMARY | 2021-12-28 18:01 | XMS_ITS | Encounter Summary ---
:1955 Author Organization [facility] Address [address], [place] [address] Care Team Providers Name Role Phone Lurdes Thomas MD Primary Care Provider Reason for Referral Specialty Diagnoses / Procedures Referred By Contact Refer red To Contact Maria Esther Phan MD [address] [place], [place] [address] Referral ID Status Reason Start Date Expiration Date Visits Requ ested Visits Authorized RVES CLERK Reason for Visit Reason Comments Back Pain Encounter Details Date Type Department Care Team Description 05/19/2015 Initial Consult [facility] Jordana Ham ht-sided low back Therapy M, PT pain with right-sided [address] [phone] Social History Tobacco Use Types Packs/Day Years [...] 1955 Physical Therapy Parkinson Evaluation/Plan of Care [facility] Initial Certification Period: 05/19/2015 to 08/17/15 Referring Provider: Dr. Maria Esther Phan Visit Diagnosis/ICD: Diagnosis ICD-10-CM ICD-9-CM 1. Right-sided low back pain with right-sided sciatica M54.41 724.3 Precautions: none Onset/Referral Date: 05/19/2015 Reason for Referral: -Outpatient PT. Orders: Evaluate and treat. [facility] [place] [facility]: Programming RN, Social Work, therapy in [...] to residence: Stairs to enter. -Living location: [facility] area. 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 Cooperative. Pleasant. [...] discussed therapist's recommendation to follow up at [facility] with orthopedic PT, provided pt with information regarding how to schedule follow up visit at their clinic, contacted [facility] to update them with transfer of [...] clinic closer to home for treatment with digital publishing specialist. Pt to continue at [place] location. Pt would benefit from skilled PT [...] Therapeutic exercise. Ultrasound. Interdisciplinary Referrals: PT at [facility], continue with POC Services Recommended: nothing [...] 90 day(s). Total Treatment: 45 minutes The store operations manager is completed by the therapist and the referring clinician's electronic signature certifies medical necessity for the plan above. Completed by Jordana Ham PT License #: [id number] RVES CLERK documented in this encounter Plan of Treatment Scheduled Referrals Name Type Priority Associated Diagnoses [facility] Referral Routine Right-sided low back edmond n Ordered: 05/19/2015, with right-sided sciatica Ex keagan: 05/19/2015 documented as of this encounter Visit Diagnoses Diagnosis Right-sided low back pain with right-beck ed sciatica (HRC) documented in this encounter Care Teams Reexaminer Relationship Specialty Start Date End Date Lurdes Thomas MD PCP - General 06/18/14 12/11/19 documented as of this encounter
--- OUTSIDE RECORDS SUMMARY | 2021-12-28 18:02 | XMS_ITS | Encounter Summary ---
:1955 Author Organization [employer] Address [address] [place] [address] Care Team Providers Name Role Phone Lurdes Thomas MD Primary Care Provider Reason for Visit Reason Comments Paperwork Encounter Details Date Type Department Care Team Description 09/15/2014 Telephone [facility] Doris Arauz, RN Paperwork [address] [place], [place] [address] Social History Tobacco Use Types [...] CDT Doris from Dr. Phan office at [facility] called to request ON/OFF results be sent [...] on filedocumented in this encounter Care Teams Semiconductor Packages Sealer Relationship Specialty Start Date End Date Lurdes Thomas MD PCP - General 06/18/14 12/11/19 documented as of this encounter
--- OUTSIDE RECORDS SUMMARY | 2021-12-28 18:02 | XMS_ITS | Encounter Summary ---
:1955 Author Organization [facility] Address [address] [address] Care Team Providers Name Role Phone Lurdes Thomas MD Primary Care Provider Encounter Details Date Type Department Care Team Description 09/17/2014 Notes/Orders Center Speech The Paige Clifford, COFFEE HOST [address] [place], [place] [address] [place] [address] (Wo rk) Social History Tobacco [...] on filedocumented in this encounter Care Teams Food Service Aide Relationship Specialty Start Date End Date Lurdes Thomas MD PCP - General 06/18/14 12/11/19 documented as of this encounter
--- OUTSIDE RECORDS SUMMARY | 2021-12-28 18:02 | XMS_ITS | Encounter Summary ---
:1955 Author Organization [facility] Address [address] [place] [address] Care Team Providers Name Role Phone Unavailable Primary Care Provider Unavailable Encounter Details Date Type Department Care Team Description 08/17/2009 PN Conversion Only MARCO CONVERSION Alexey Garcia, [address] [place] [address] [address] [place], [place] [address] (Wo rk) Social History [...] Greater than 150 ng/m L Performed at [facility] [address] [place] [address] 8 Specimen (Source) Anatomical Collection Method Collection Time Re ceived Time Location / / Volume Laterality 08/17/2009 8:30 AM CDT Alexey Garcia MD LAB_1 Performing Organization Address City/[facility] Code Phon e Number HP CONVERSION Prostatic Specific Antigen (F/U) (08/17/2009 8:30 AM CDT) P athologist Signature Prostate 0.6 0.0 - 4.0 HP CONVERSION Specific ng/mL Antigen Specimen (Source) Anatomical Collection Method Collection Time Re ceived Time Location / / Volume Laterality 08/17/2009 8:30 AM CDT Alexey Garcia MD LAB_1 Performing Organization Address City/[facility]/ZIP Code Phon e Number HP CONVERSION Lipid [...] Alexey Garcia MD LAB_1 Performing Organization Address City/[facility] Code Phon e Number HP CONVERSION (ABNORMAL) GLUCOSE (08/17/2009 8:30 AM CDT) P athologist Signature Lab Glucose 105 (H) 60 - 100 HP CONVERSION mg/dL Specimen (Source) Anatomical Collection Method Collection Time Re ceived Time Location / / Volume Laterality 08/17/2009 8:30 AM CDT Alexey Garcia MD LAB_1 Performing Organization Address [facility] Phon e Number HP CONVERSION ALT (SGPT) (08/17/2009 8:30 AM CDT) [facility] Method Time Signature Alanine 33 4 - 55 HP CONVERSION Aminotransferase U/L Specimen (Source) Anatomical Collection Method Collection Time Re ceived Time Location / / Volume Laterality 08/17/2009 8:30 AM CDT Alexey Garcia MD LAB_1 Performing Organization Address [facility] Phon e Number HP CONVERSION documented in this encounter Visit Diagnoses Not on filedocumented in this encounter
--- OUTSIDE RECORDS SUMMARY | 2021-12-28 18:02 | XMS_ITS | Encounter Summary ---
:1955 Author Organization [facility] Address [address], [place] [address] Care Team Providers Name Role Phone Lurdes Thomas MD Primary Care Provider Reason for Referral Specialty Diagnoses / Procedures Referred By Contact Refer red To Contact Maria Esther Phan MD [address] [place], [place] [address] Referral ID Status Reason Start Date Expiration Date Visits Requ ested Visits Authorized LATORY AFFAIRS CONSULTANT Reason for Visit Reason Comments Balance/gait Dysfunction Encounter Details Date Type Department Care Team Description 06/18/2014 Initial Consult [facility] Jordana Ham (Primary Dx); Therapy M, PT Abnormality of gait; [address] [place] [phone] Social History Tobacco Use Types Packs/Day Years [...] 1955 Physical Therapy Parkinson Evaluation/Plan of Care [facility] Initial Certification Period: 06/18/2014 to 09/16/14 Referring Provider: Dr. Maria Esther Phan Visit Diagnosis/ICD: Diagnosis (ICD9) ICD-9-CM 1. Paralysis agitans (HCC) 332.0 2. Abnormality of gait 781.2 3. Risk for falls V15.88 Precautions: No precautions Onset/Referral Date: 06/18/2014 Reason for Referral: -Pre-Deep Brain Stimulation (Physical Therapist, Occupational Therapist, Speech and Language Pathologist, Research Project Manager, Registered Nurse). Orders: Evaluate and treat. [place] Parkinson's [place] Services: None. Exacerbation Date: 05/22/2014 Last Referring [...] to residence: Stairs to enter. -Living location: [facility]. -Living environment: Urban-mostly paved areas [...] in winter. Communication: Clear. Low volume. 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 Total Treatment: 60 minutes The data technician is completed by the therapist and the [...] Name Type Priority Associated Diagnoses Order S [facility] Physical Therapy Referral Routine Paralysis agitans (HRC) Ordered: 06/20/2014, Expires: 2014 documented as of this encounter Visit Diagnoses Diagnosis Paralysis agitans (HRC) - Primary Paralysis agitans Abnormality of gait Risk for falls Personal history of fall documented in this encounter Care Teams Visual Basic .Net Developer Relationship Specialty Start Date End Date Lurdes Thomas MD PCP - General 06/18/14 12/11/19 documented as of this encounter
--- OUTSIDE RECORDS SUMMARY | 2021-12-28 18:02 | XMS_ITS | Encounter Summary ---
:1955 Author Organization [employer] Address [address] [address] Care Team Providers Name Role Phone Lurdes Thomas MD Primary Care Provider Encounter Details Date Type Department Care Team Description 09/23/2014 Notes/Orders [facility] Jordana Ham, PT [address] [place] [address] [place] [address] [phone] (Wo rk) Social History Tobacco Use Types Packs/Day Years Used Date Smoking Tobacco: Never Smokeless Tobacco: Never Alcohol Use Standard Drinks/Week Comments Yes 0 (1 standard drink = 0.6 oz pure alcoho l) Sex Assigned at Date Recorded Not on file documented as of this encounter Discharge Summaries Jordana Ham, PT - 09/23/2014 8:52 AM CDT Encounter Date: 09/23/2014 Pt : 1955 [facility] Physical Therapy Discharge Summary Patient was evaluated [...] on filedocumented in this encounter Care Teams Street Light Repairer Helper Relationship Specialty Start Date End Date Lurdes Thomas MD PCP - General 06/18/14 12/11/19 documented as of this encounter
--- OUTSIDE RECORDS SUMMARY | 2021-12-28 18:02 | XMS_ITS | Encounter Summary ---
:1955 Author Organization [facility] Address [address] [place] [address] Care Team Providers Name Role Phone Lurdes Thomas MD Primary Care Provider Reason for Referral Specialty Diagnoses / Procedures Referred By Contact Refer red To Contact Maria Esther Phan MD [address] [place], [place] [address] Referral ID Status Reason Start Date Expiration Date Visits Requ ested Visits Authorized OSOFT EXCHANGE ARCHITECT Reason for Visit Reason Comments Adl Problem Encounter Details Date Type Department Care Team Description 06/18/2014 Initial Consult Angela Moore (Primary Dx); Occupational Therapy Tylor Bates OTR/L Other ill-defined conditions(799.89) [address] [place] [phone] Social History Tobacco Use Types Packs/Day Years Used Date Smoking Tobacco: Never Smokeless Tobacco: Never Alcohol Use Standard Drinks/Week Comments Yes 0 (1 standard drink = 0.6 oz pure alcoho l) Sex Assigned at Date Recorded Not on file documented as of this encounter Progress Notes Tylor Marr OTR/Stefan - 06/18/2014 4:45 PM CST Encounter Date: 06/18/2014 Pt. : 1955 [place] Occupational Therapy - Evaluation/Plan of Care [...] program. Completion of Pre DBS assessment and dental receptionist of recommendations. Past Medical History: Past medical history, medication, and allergies were reviewed in the electronic medical record. Pertinent to therapy: Restless leg syndrome. . Previous Occupational Therapy: Unknown. Pain: Location: Back pain in morning. Education: High school. 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 Living Location: [facility]. Driving: Yes. Community Mobility: Assistive device - [...] limits. -Right upper extremity: within normal limits. -Zone Maintenance Technician: Left - 99 lbs =75%; Right - [...] equipment for increased handwriting legibility using: Wide dental billing specialist pen. Aim big. Write slower. Response to [...] or Learning: Distance from clinic. 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 Prognosis: Excellent for established goals. PLAN: Evaluation [...] exercise program. Procedures: Occupation Therapy Evaluation (CPT 43052): 30 minutes ADL/Self management (CPT 26617): 30 minutes Total Treatment Time: 60 minutes. The veterinarian is completed by the therapist and the referring clinician's electronic signature certifies medical necessity for the plan above. Tylor Marr OTR/L Lic#[id number] documented in this encounter Plan of Treatment Scheduled Referrals Name Type Priority Associated Diagnoses Order S [facility] Occupational Therapy Referral Routine Paralysis agitans (H RC) Ordered: 06/20/2014, Expires: 2014 documented as of this encounter Visit Diagnoses Diagnosis Paralysis agitans (HRC) - Primary Paralysis agitans Other ill-defined conditions(799.89) Other ill-defined conditions documented in this encounter Care Teams Sales Strategy Manager Relationship Specialty Start Date End Date Lurdes Thomas MD PCP - General 06/18/14 12/11/19 documented as of this encounter
--- OUTSIDE RECORDS SUMMARY | 2021-12-28 18:02 | XMS_ITS | Encounter Summary ---
:1955 Author Organization [employer] Address [address] [place] [address] Care Team Providers Name Role Phone No Primary/Referring, Phy Primary Care Provider Unavailable Reason for Visit Reason Comments Establish Care MEDICATION CHECK Encounter Details Date Type Department Care Team Description 01/28/2014 Office Visit Kiara Zepeda Hyperlipide cierra (Primary Dx); Rober Aviles MD Parkinson's disease; [address] [facility] [address] [place] [address] Screening for diabetes mellitus; [place] [phone] [place] [address] Screening for prostate cancer; [phone] Special screeni ng for malignant neoplasms, colon; [...] go directly to the clinic???s lab to milk pickup truck driver your test kit. There will be specific [...] Follow-up in 1 years for preventive care. Kiara Cristina MD 6:00 PM 01/30/2014 documented in [...] COLLECTION KIT PREP (01/28/2014 9:30 AM CDT) [facility] gist Method Time Signature FIT Kit Prep Collection Kit [facility] Given to LABORATORIES Patient Specimen Anatomical Collection Method Collection Time Receive d Time (Source) Location / / Volume Laterality 01/28/2014 9:30 AM 4 9:31 CDT AM CDT Narrative [facility] - 02/04/2014 8:08 AM C DT Performed at [facility] access hospital Laboratory, [facility], [place] [address] Kiara Cristina MD LAB_1 Performing Organization Address City/State/ZIP Code Phon e Number [facility] [phone] PROSTATIC SPECIFIC ANTIGEN(SCREEN) (V76.44) (01/28/2014 9:30 AM CDT) P athologist Signature Prostatic Spec 0.97 0.00 - [facility] Ag 4.00 ng/ml LABORATORIES Specimen Anatomical Collection Method Collection Time Receive d Time (Source) Location / / Volume Laterality 01/28/2014 9:30 AM 4 9:31 CDT AM CDT Narrative [facility] - 01/28/2014 7:22 PM C DT Performed at [facility] Laboratory, [address] [place] [address] ??[phone] Kiara Cristina MD LAB_1 Performing Organization Address City/[facility]/ZIP Code Phon e Number [facility] [phone] (ABNORMAL) VITAMIN D 25-HYDROXY, TOTAL (V77.99) (01/28/2014 9:30 AM CDT) [facility] gist Method Time Signature Vitamin 14.8 [...] 01/28/2014 9:27 PM C DT Performed at [facility] , [address] [place] [address] Kiara Cristina MD LAB_1 Performing Organization Address City/State/ZIP Code Phon e Number [facility] [phone] LIVER PANEL(HEPATIC FUNCTION PANEL) (01/28/2014 9:30 AM CDT) [facility] Method Time Signature Alkaline 89 38 - [...] 01/28/2014 7:22 PM C DT Performed at [facility], [address] [place] [address] ??[phone] Kiara Cristina MD LAB_1 Performing Organization Address City/[facility] Phon e Number [facility] [phone] HGB A1C (01/28/2014 9:30 AM CDT) athologist Signature Hgb A1c 5.9 4.3 - 6.1 % [facility] Specimen Anatomical Collection Method Collection Time Receive d Time (Source) Location / / Volume Laterality 01/28/2014 9:30 AM 4 9:31 CDT AM CDT Narrative [facility] - 01/29/2014 9:55 AM C DT Performed at [facility], [address] [place] [address] ??[phone] Kiara Cristina MD LAB_1 Performing Organization Address City/[facility] Phon e Number [facility] [phone] (ABNORMAL) LIPID PANEL AND DIRECT LDL(IF NEEDED) (01/28/2014 9:30 AM CDT) Component Value Ref Test Analysis Performed At [facility] Range Method Time Signature Hours Fasting Information [...] 01/28/2014 7:22 PM C DT Performed at [facility], [address] [place] [address] ??[phone] Kiara Cristina MD LAB_1 Performing Organization Address City/State/ZIP Code Phon e Number [facility] [phone] documented in this encounter Visit Diagnoses Diagnosis Hyperlipidemia (HRC) - Primary Other and unspecified hyperlipidemia Parkinson's disease (HRC) Screening for diabetes mellitus Screening for prostate cancer Special screening for malignant neoplasm of prostate Special screening for malignant neoplasm s, colon Preventative health care Routine general medical examination at a health care facility documented in this encounter Care Teams Non Destructive Evaluation Technician Relationship Specialty Start Date End Date No Primary/Referring, Phy PCP - General 01/22/14 documented as of this encounter
--- OUTSIDE RECORDS SUMMARY | 2021-12-28 18:02 | XMS_ITS | Encounter Summary ---
:1955 Author Organization [facility] Address [address] [address] Care Team Providers Name Role Phone Lurdes Thomas MD Primary Care Provider Encounter Details Date Type Department Care Team Description 10/14/2014 Notes/Orders [facility] Shawnee Hilario, Paralysis agitans [address] RN (Primary D x) [place] [address] Social History Tobacco Use Types Packs/Day Years Used Date Smoking Tobacco: Never Smokeless Tobacco: Never Alcohol Use Standard Drinks/Week Comments Yes 0 (1 standard drink = 0.6 oz pure alcoho l) Sex Assigned at Date Recorded Not on file documented as of this encounter Progress Notes Shawnee Hilario RN - 10/16/2014 8:21 AM CDT Please sign above pended orders for DBS programming and follow up programming sessions. He would also like to follow up with PT, OT and Speech for post DBS. Maria Esther Phan MD - 10/16/2014 8:21 AM CDT [place] documented in this encounter Plan of Treatment Not on filedocumented as of this encounter Visit Diagnoses Diagnosis Paralysis agitans (HRC) - Primary Paralysis agitans documented in this encounter Care Teams Stone Lathe Operator Relationship Specialty Start Date End Date Lurdes Thomas MD PCP - General 06/18/14 12/11/19 documented as of this encounter
--- OUTSIDE RECORDS SUMMARY | 2021-12-28 18:02 | XMS_ITS | Encounter Summary ---
:1955 Author Organization [facility] Address [address] [place] [address] Care Team Providers Name Role Phone Lurdes Thomas MD Primary Care Provider Encounter Details Date Type Department Care Team Description 09/25/2014 Notes/Orders [facility] Millie Pedraza MD [address] [place], [place] [address] [address] [facility] [id number] (Wo rk) Social History Tobacco Use Types Packs/Day Years Used Date Smoking Tobacco: Never Smokeless Tobacco: Never Alcohol Use Standard Drinks/Week Comments Yes 0 (1 standard drink = 0.6 oz pure alcoho l) Sex Assigned at Date Recorded Not on file documented as of this encounter Progress Notes Millie Pedraza MD - 09/25/2014 6:56 AM CDT DBS TEAM MEETING 09/24/14: DBS surgery scheduled through Dr. Rowland, denied by pt insurance. Dr Rowland is writing a letter. Pt needs fu PT, did not answer when PT called to schedule. documented in this encounter Plan of Treatment Not on filedocumented as of this encounter Visit Diagnoses Not on filedocumented in this encounter Care Teams Offal Roller Relationship Specialty Start Date End Date Lurdes Thomas MD PCP - General 06/18/14 12/11/19 documented as of this encounter
--- OUTSIDE RECORDS SUMMARY | 2021-12-28 18:02 | XMS_ITS | Encounter Summary ---
:1955 Author Organization [employer] Address [address] [place] [address] Care Team Providers Name Role Phone Lurdes Thomas MD Primary Care Provider Reason for Referral Specialty Diagnoses / Procedures Referred By Contact Refer red To Contact Maria Esther Phan MD [address] [place], [place] [address] Referral ID Status Reason Start Date Expiration Date Visits Requ ested Visits Authorized Reason for Visit Reason Comments VOICE, LOSS OF Encounter Details Date Type Department Care Team Description 11/04/2014 Initial Consult [facility] Casi De La Rosa (Primary Dx); Therapy J, CT TECHNOLOGIST Dysphonia; [address] [place], [place] [address] [phone] Social History Tobacco Use Types Packs/Day Years Used Date Smoking Tobacco: Never Smokeless Tobacco: Never Alcohol Use Standard Drinks/Week Comments Yes 0 (1 standard drink = 0.6 oz pure alcoho l) Sex Assigned at Date Recorded Not on file documented as of this encounter Progress Notes Casi De La Rosa, CT TECHNOLOGIST - 11/04/2014 4:56 PM CDT Encounter Date: 11/04/2014 Patient : 1955 Speech Therapy - Parkinson's Disease Evaluation and Plan of Care [facility] Multidisciplinary Assessment Outpatient Evaluation Initial [...] feels it is slightly worse. 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 He is on the phone a lot [...] Any liquids. Previous Speech Therapy: Received at [facility] [place]. Evaluation 08/23/07 - WFL. Evaluation 06/18/14 with recommendation for treatment. He did not follow up then. Is ready to pursue treatmentnow. Hand Dominance: Right Hearing Acuity: Within Functional Limits. Glasses: Reading glasses. Education: High school. 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 Marital Status: . Living Environment: [...] on his own. Recommendations: Individual speech therapy. Boring Machine Operator Production Speech Goal: Client will be able to be understood without repetition 80% of the time in their daily environment as measured by patient report. Residential Swallowing Goal: -None Residential Memory/Cognition Goal: None. Short Term Goals: -Independent [...] achieve intelligible loudness. Goals Achieved Today at [facility] [place]: -Client and/or family verbalized comprehension of today's [...] family in agreement with care plan. The aircraft painter is completed by the therapist, and the referring clinician's electronic signature certifies medical necessity for the plan above. documented in this encounter Plan of Treatment Scheduled Referrals Name Type Priority Associated Diagnoses Order S [facility] Speech Therapy Referral Routine Paralysis agitans (HRC) Or dered: 11/04/2014, Expires: 2014 documented as of this encounter Visit Diagnoses Diagnosis Paralysis agitans (HRC) - Primary Paralysis agitans Dysphonia Dysarthria documented in this encounter Care Teams Circuit Manager Relationship Specialty Start Date End Date Lurdes Thomas MD PCP - General 06/18/14 12/11/19 documented as of this encounter
--- OUTSIDE RECORDS SUMMARY | 2021-12-28 18:02 | XMS_ITS | Encounter Summary ---
:1955 Author Organization [facility] Address [address], [place] [address] Care Team Providers Name Role Phone No Primary/Referring, Phmyah Primary Care Provider Unavailable Encounter Details Date Type Department Care Team Description 01/30/2014 Orders Only [facility] Kiara Cristina, Vitamin D deficiency [address] Tim Ross MD (Primary Dx) [place] [id number] 1654 TIM [phone] [place] [id number] (Wo rk) Social History Tobacco Use [...] deficiency documented in this encounter Care Teams Cco & President Relationship Specialty Start Date End Date No Primary/Referring, Lilliana PCP - General 01/22/14 documented as of this encounter
--- OUTSIDE RECORDS SUMMARY | 2021-12-28 18:02 | XMS_ITS | Encounter Summary ---
:1955 Author Organization [employer] Address [address], [place] [address] Care Team Providers Name Role Phone Lurdes Thomas MD Primary Care Provider Reason for Visit Reason Comments Sleep problems Encounter Details Date Type Department Care Team Description 11/12/2014 Telephone [facility] Doris Arauz, RN Sleep problems [address] [place], [place] [address] Social History Tobacco Use [...] on filedocumented in this encounter Care Teams Tank Farm Attendant Relationship Specialty Start Date End Date Lurdes Thomas MD PCP - General 06/18/14 12/11/19 documented as of this encounter
--- OUTSIDE RECORDS SUMMARY | 2021-12-28 18:02 | XMS_ITS | Encounter Summary ---
:1955 Author Organization [employer] Address [address] [place] [address] Care Team Providers Name Role Phone Lurdes Thomas MD Primary Care Provider Reason for Visit Reason Comments Follow-up Encounter Details Date Type Department Care Team Description 10/07/2014 Office Visit [facility] Parashos, Sotirios Paralysis agitans [address] [place] A, MD (Primary Dx) Drive [address] [facility] [address] [place], [place] [phone] (Wo rk) Social History Tobacco Use Types [...] Body Mass Index 27.18 07/08/2014 8:56 AM STONE ROUGHER documented in this encounter Patient Instructions Patient [...] day. 2. I will have our social media director, Fabi Beverly contact you and your as [...] agitans documented in this encounter Care Teams Assembler Surgical Garment Relationship Specialty Start Date End Date Lurdes Thomas MD PCP - General 06/18/14 12/11/19 documented as of this encounter
--- OUTSIDE RECORDS SUMMARY | 2021-12-28 18:02 | XMS_ITS | Encounter Summary ---
:1955 Author Organization [facility] Address [address] [place] [address] Care Team Providers Name Role Phone Lurdes Thomas MD Primary Care Provider Reason for Referral Specialty Diagnoses / Procedures Referred By Contact Refer red To Contact Maria Esther Phan MD [address] [place], [place] [address] Referral ID Status Reason Start Date Expiration Date Visits Requ ested Visits Authorized Reason for Visit Reason Comments Device Check Encounter Details Date Type Department Care Team Description 10/14/2014 Nursing Visit [facility] Shawnee Hilario, RN [place] [address] [place], [place] [address] Social History Tobacco Use [...] DBS implantation. Surgeon:Dr. Gonzalez Rowland Surgery date/location: [facility] 09/09/2014 Battery replacement: None Device type: Activa [...] 2.2V PW 60 Rate 150 Range on scientific programmer analyst 2.1-2.7 Right STN 9 negative 10 positive 2.1V PW 60 Rate 150 Range on scientific programmer analyst 1.8-2.6 If he wants to try to [...] agitans documented in this encounter Care Teams Furniture Maker Relationship Specialty Start Date End Date Lurdes Thomas MD PCP - General 06/18/14 12/11/19 documented as of this encounter
--- OUTSIDE RECORDS SUMMARY | 2021-12-28 18:02 | XMS_ITS | Encounter Summary ---
:1955 Author Organization [facility] Address [address], [place] [address] Care Team Providers Name Role Phone Lurdes Thomas MD Primary Care Provider Encounter Details Date Type Department Care Team Description 07/23/2014 Notes/Orders [facility] Millie Pedraza MD [address] [place] [address] [place], [place] [address] [address] [facility] N [id number] (Wo rk) Social History Tobacco Use Types Packs/Day Years Used Date Smoking Tobacco: Never Smokeless Tobacco: Never Alcohol Use Standard Drinks/Week Comments Yes 0 (1 standard drink = 0.6 oz pure alcoho l) Sex Assigned at Date Recorded Not on file documented as of this encounter Progress Notes Millie Pedraza MD - 07/23/2014 4:42 PM CST DBS TEAM MEETING: PT scheduled for bilateral STN procedure through Dr. Rowland. He does have some freezing of gait and stammering voice, and knows that this might not improve with DBS. PT has worked with him before, and will contact him to continue with PT before his surgery, as he was getting some benefits. DEPARTMENT HEAD documented in this encounter Plan of Treatment Not on filedocumented as of this encounter Visit Diagnoses Not on filedocumented in this encounter Care Teams Senior Business Development Manager Relationship Specialty Start Date End Date Lurdes Thomas MD PCP - General 06/18/14 12/11/19 documented as of this encounter
--- OUTSIDE RECORDS SUMMARY | 2021-12-28 18:02 | XMS_ITS | Encounter Summary ---
:1955 Author Organization [employer] Address [address] [place] [address] Care Team Providers Name Role Phone Lurdes Thomas MD Primary Care Provider Reason for Referral Specialty Diagnoses / Procedures Referred By Contact Refer red To Contact Maria Esther Phan MD [address] [place], [place] [address] Referral ID Status Reason Start Date Expiration Date Visits Requ ested Visits Authorized AT TANKER DRIVER Reason for Visit Reason Comments VOICE, LOSS OF Encounter Details Date Type Department Care Team Description 06/18/2014 Initial Consult Iona Paige Quesada inson's disease (Primary Dx); Therapy M, PHYSICIAN ASST Dysphonia; [address] [place] [address] [phone] Social History Tobacco Use Types Packs/Day Years Used Date Smoking Tobacco: Never Smokeless Tobacco: Never Alcohol Use Standard Drinks/Week Comments Yes 0 (1 standard drink = 0.6 oz pure alcoho l) Sex Assigned at Date Recorded Not on file documented as of this encounter Progress Notes Paige Garcia, PHYSICIAN ASST - 06/18/2014 5:17 PM CST Encounter Date: 06/18/2014 Patient : 1955 Speech Therapy - Parkinson's Disease Evaluation and Plan of Care [facility] Services Multidisciplinary Assessment Clinic Outpatient Evaluation Initial [...] Any liquids. Previous Speech Therapy: Received at [facility] [place]. Evaluation only 08/23/2007. Hand Dominance: Right Hearing Acuity: Within Functional Limits. Glasses: No. Education: High school. 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 Marital Status: . Living Environment: Lives with [...] Recommendations: Brief course of individual speech therapy. Cardiac Cath Lab Manager Speech Goal: Client will be able to be understood without repetition 80% of the time in their daily environment as measured by patient report. Cardiac Cath Lab Manager Swallowing Goal: -None Cardiac Cath Lab Manager Memory/Cognition Goal: None. Short Term Goals: -Independent in speech/voice home program. -Client will improve respiratory support for speech and voice to provide a basis for intelligible speech. -Client will increase articulation accuracy for improved speech intelligibility. -Client will decrease speech rate for improved intelligibility. Goals Achieved Today at [facility] [place]: -Client and/or family verbalized comprehension of today's [...] family in agreement with care plan. The machine greaser is completed by the therapist, and the referring clinician's electronic signature certifies medical necessity for the plan above. documented in this encounter Plan of Treatment Scheduled Referrals Name Type Priority Associated Diagnoses Order S [facility] Speech Therapy Referral Routine Paralysis agitans (HRC) Or dered: 06/20/2014, Expires: 2014 documented as of this encounter Visit Diagnoses Diagnosis Parkinson's disease (HRC) - Primary Dysphonia Paralysis agitans (HRC) Paralysis agitans documented in this encounter Care Teams Stenciler Relationship Specialty Start Date End Date Lurdes Thomas MD PCP - General 06/18/14 12/11/19 documented as of this encounter
--- OUTSIDE RECORDS SUMMARY | 2021-12-28 18:02 | XMS_ITS | Encounter Summary ---
:1955 Author Organization [employer] Address [address], [place] [address] Care Team Providers Name Role Phone Lurdes Thomas MD Primary Care Provider Encounter Details Date Type Department Care Team Description 06/18/2014 Initial Consult Usha Mcpherson Para lysis agitans Services (Primary Dx) [address] [place] [address] Social History Tobacco Use Types [...] Living Environment Lives with . Living Location: [place], [place] Leisure Activities: Not discussed during session. [...] agitans documented in this encounter Care Teams Malted Milk Mixer Relationship Specialty Start Date End Date Lurdes Thomas MD PCP - General 06/18/14 12/11/19 documented as of this encounter
--- OUTSIDE RECORDS SUMMARY | 2021-12-28 18:02 | XMS_ITS | Encounter Summary ---
:1955 Author Organization [facility] Address [address] [place] [address] Care Team Providers Name Role Phone Lurdes Thomas MD Primary Care Provider Reason for Referral Specialty Diagnoses / Procedures Referred By Contact Refer red To Contact Maria Esther Phan MD [address] [place], [place] [address] Referral ID Status Reason Start Date Expiration Date Visits Requ ested Visits Authorized Reason for Visit Reason Comments Adl Problem Encounter Details Date Type Department Care Team Description 11/04/2014 Initial Consult Darrin Moore-d efined conditions(799.89) (Primary Dx); Occupational Therapy Tylor Bates, OTR/L Paralysis agitans [address] [place] [address] [address] [phone] Social History Tobacco Use Types Packs/Day Years Used Date Smoking Tobacco: Never Smokeless Tobacco: Never Alcohol Use Standard Drinks/Week Comments Yes 0 (1 standard drink = 0.6 oz pure alcoho l) Sex Assigned at Date Recorded Not on file documented as of this encounter Progress Notes Tylor Marr, OTR/L - 11/08/2014 1:51 PM CDT Encounter Date: 11/04/2014 Pt. : 1955 [facility] Rehabilitation Services Occupational Therapy - Evaluation/Plan of Care Initial Certification Period: 11/04/2014 to 01/03/15 Referring Provider: Dr. Maria Esther Phan Referring Diagnosis: Parkinson's Disease Visit Diagnosis/IDC Code: Diagnosis (ICD9) ICD-9-CM ICD-10-CM 1. Other ill-defined conditions(799.89) 799.89 R69 2. Paralysis agitans ([facility]) 332.0 G20 Precautions: recent DBS [...] bilateral DBS(09/2014). Previous Occupational Therapy: Received at [facility] [place]. Pain: Location: back pain when getting up rom chairs , gettign up from bed, getting in/out of car. Education: High school. 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 Living Environment: Private home, more than 1 level. Living Location: [facility]. Driving: Yes. Community Mobility: Independent community ambulation-unrestricted. [...] limits. -Right upper extremity: within normal limits. -Librarian Special Library: Left - 127 lbs=99%; Right -128 lbs.=99% [...] did undergo successful DBS surgery. 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 H e presents to address continuing difficulty [...] Achievement or Learning: Distance from clinic. 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 Prognosis: Excellent for established goals. PLAN Planned [...] exercise program. Procedures: Occupation Therapy Evaluation (CPT 95394): 30 minutes ADL/Self management (CPT 71854): 15 minutes Therapeutic Exercise (CPT 89205): 15 minutes Total Treatment Time: 60 minutes. The executive vp is completed by the therapist and the referring clinician's electronic signature certifies medical necessity for the plan above. Tylor Marr OTR/L Lic#[id number] documented in this encounter Plan of Treatment Scheduled Referrals Name Type Priority Associated Diagnoses Order S [facility] Occupational Therapy Referral Routine Paralysis agitans (H [facility]) Ordered: 11/04/2014, Expires: 2014 documented as of this encounter Visit Diagnoses Diagnosis Other ill-defined conditions(799.89) - P rimary Other ill-defined conditions Paralysis agitans (HRC) Paralysis agitans documented in this encounter Care Teams Ham Boner Relationship Specialty Start Date End Date Lurdes Thomas MD PCP - General 06/18/14 12/11/19 documented as of this encounter
--- OUTSIDE RECORDS SUMMARY | 2021-12-28 18:02 | XMS_ITS | Encounter Summary ---
:1955 Author [facility] Address [address], [place] [address] Care Team Providers Name Role Phone Lurdes Thomas MD Primary Care Provider Reason for Visit Reason Comments Questions Encounter Details Date Type Department Care Team Description 07/09/2014 Telephone [facility] Sheri Pearson, RN Questions [address] [place], [place] [address] Social History Tobacco Use [...] wondering when he would hear from Dr Rwoland's office about scheduling his surgery. I told him that paperwork was faxed to them yesterday and it takes them about a week before he will hear from them to schedule. NGED INSTRUMENT REPAIRER documented in this encounter Plan of Treatment Not on filedocumented as of this encounter Visit Diagnoses Not on filedocumented in this encounter Care Teams Bit Welder Relationship Specialty Start Date End Date Lurdes Thomas MD PCP - General 06/18/14 12/11/19 documented as of this encounter
--- OUTSIDE RECORDS SUMMARY | 2021-12-28 18:02 | XMS_ITS | Encounter Summary ---
:1955 Author Organization [facility] Address [address], [place] [address] Care Team Providers Name Role Phone Unavailable Primary Care Provider Unavailable Encounter Details Date Type Department Care Team Description 09/22/2010 PN Conversion Only Alexey Tolentino, [facility] TR[address] [address] [address] [facility] [place] [place] [address] (Wo rk) Social History Tobacco Use Types Packs/Day Years Used Date Smoking Tobacco: Never Assessed Sex Assigned at Date Recorded Not on file documented as of this encounter Plan of Treatment Not on filedocumented as of this encounter Visit Diagnoses Not on filedocumented in this encounter
--- OUTSIDE RECORDS SUMMARY | 2021-12-28 18:02 | XMS_ITS | Encounter Summary ---
:1955 Author Organization [facility] Address [address] [place] [address] Care Team Providers Name Role Phone Lurdes Thomas MD Primary Care Provider Reason for Referral Specialty Diagnoses / Procedures Referred By Contact Refer red To Contact Maria Esther Phan MD [address] [place], [place] [address] Referral ID Status Reason Start Date Expiration Date Visits Requ ested Visits Authorized Reason for Visit Reason Comments Device Check Encounter Details Date Type Department Care Team Description 11/12/2014 Nursing Visit [facility] Doris Arauz, [place] [id number] corina [place], [place] [address] Social History Tobacco Use [...] implantation. Surgeon: Dr. Gonzalez Rowland Surgery date/location: [facility], 09/09/14 Battery replacement: None Device type: Activia [...] check. Therapy impedence: 1410 on 1.579. Pt erp programmer range: 2.1-2.7 R STN: 10 Positive, 9 Negative, Amp: 2.1, PW: 60, Rate: 150. No problems found on 1.5v impedence check. Therapy impedence: 1149 on 1.831. Pt erp programmer range: 1.7-2.5 Final settings: No changes [...] agitans documented in this encounter Care Teams Clinical Statistical Programmer Relationship Specialty Start Date End Date Lurdes Thomas MD PCP - General 06/18/14 12/11/19 documented as of this encounter
--- OUTSIDE RECORDS SUMMARY | 2021-12-28 18:02 | XMS_ITS | Encounter Summary ---
:1955 Author Organization [facility] Address [address], [place] [address] Care Team Providers Name Role Phone Lurdes Thomas MD Primary Care Provider Encounter Details Date Type Department Care Team Description 10/06/2014 Notes/Orders [facility] Shawnee Hilario, Paralysis agitans [address] RN (Primary D x) [place] [address] Social History Tobacco Use Types [...] documented in this encounter Care Teams Clinical Trial Associate Relationship Specialty Start Date End Date Lurdes Thomas MD PCP - General 06/18/14 12/11/19 documented as of this encounter
--- OUTSIDE RECORDS SUMMARY | 2021-12-28 18:02 | XMS_ITS | Encounter Summary ---
:1955 Author Organization [employer] Address [address], [place] [address] Care Team Providers Name Role Phone Lurdes Thomas MD Primary Care Provider Encounter Details Date Type Department Care Team Description 10/22/2014 Notes/Orders [facility] [address] Zhanna Pedraza MD Neurology [address] [place] [address] [facility] [address] [place] [address] [phone] Social History Tobacco Use Types Packs/Day Years [...] on filedocumented in this encounter Care Teams Cab Driver Relationship Specialty Start Date End Date Lurdes Thomas MD PCP - General 06/18/14 12/11/19 documented as of this encounter
--- OUTSIDE RECORDS SUMMARY | 2021-12-28 18:02 | XMS_ITS | Encounter Summary ---
:1955 Author Organization [employer] [facility] [employer] Address [address] [place] [address] Care Team Providers Name Role Phone Lurdes Thomas MD Primary Care Provider Reason for Referral Specialty Diagnoses / Procedures Referred By Contact Refer red To Contact Maria Esther Phan MD [address] [place], [place] [address] Referral ID Status Reason Start Date Expiration Date Visits Requ ested Visits Authorized L PACKAGE AND BUNDLE SORTER CLERK Reason for Visit Reason Comments CONSULT Encounter Details Date Type Department Care Team Description 06/18/2014 Nursing Visit [facility] Doris Arauz, PD (Parkinson's disease) (Pr imary Dx); [address] [place], [place] [address] Social History Tobacco Use Types Packs/Day Years Used Date Smoking Tobacco: Never Smokeless Tobacco: Never Alcohol Use Standard Drinks/Week Comments Yes 0 (1 standard drink = 0.6 oz pure alcoho l) Sex Assigned at Date Recorded Not on file documented as of this encounter Progress Notes Doris Arauz RN - 06/18/2014 5:16 PM CST Andrew came to [facility] for DBS TAC with his . States [...] CR: 900mg MoCA: Midi: 0 Vargas: 15 L PACKAGE AND BUNDLE SORTER CLERK documented in this encounter Plan of Treatment Scheduled Referrals Name Type Priority Associated Diagnoses Order S angé[facility] Referral Routine Paralysis agitans (HRC) Ordered: 06/20/2014, CONSULT (AMB) Expires: 06/20 documented as of this encounter Visit Diagnoses Diagnosis PD (Parkinson's disease) (HRC) - Primary Paralysis agitans Paralysis agitans (HRC) Paralysis agitans documented in this encounter Care Teams Orchestra Leader Relationship Specialty Start Date End Date Lurdes Thomas MD PCP - General 06/18/14 12/11/19 documented as of this encounter
--- OUTSIDE RECORDS SUMMARY | 2021-12-28 18:02 | XMS_ITS | Encounter Summary ---
:1955 Author Organization [facility] Address [address] [address] Care Team Providers Name Role Phone Lurdes Thomas MD Primary Care Provider Encounter Details Date Type Department Care Team Description 06/18/2014 Notes/Orders [facility] Doris Arauz, Paralysis agitans [address] RN (Primary D x) [place] [address] Social History Tobacco Use Types [...] had . Older the 90 days. Thanks. T SERVICE MANAGER documented in this encounter Plan of Treatment Not on filedocumented as of this encounter Visit Diagnoses Diagnosis Paralysis agitans (HRC) - Primary Paralysis agitans documented in this encounter Care Teams Traffic Coordinator Relationship Specialty Start Date End Date Lurdes Thomas MD PCP - General 06/18/14 12/11/19 documented as of this encounter
--- OUTSIDE RECORDS SUMMARY | 2021-12-28 18:02 | XMS_ITS | Encounter Summary ---
:1955 Author Organization [facility] Address [address], [place] [address] Care Team Providers Name Role Phone No Primary/Referring, Phy Primary Care Provider Unavailable Reason for Visit Reason Comments Questions Encounter Details Date Type Department Care Team Description 06/06/2014 Telephone [facility] Doris Arauz, RN Questions [address] corina Lamas [place], [place] [address] Social History Tobacco Use [...] Andrew called asking for number of [employer]onic Radiation Monitor. Emailed our reps and Lyric stated it was okay to give him her number: [phone] Called Andrew and gave him her number. STRIAL ECOLOGIST documented in this encounter Plan of Treatment Not on filedocumented as of this encounter Visit Diagnoses Not on filedocumented in this encounter Care Teams Patient Liaison Relationship Specialty Start Date End Date No Primary/Referring, Lupilloy PCP - General 01/22/14 documented as of this encounter
--- OUTSIDE RECORDS SUMMARY | 2021-12-28 18:02 | XMS_ITS | Encounter Summary ---
:1955 Author Organization [employer] Address [address], [place] [address] Care Team Providers Name Role Phone Lurdes Thomas MD Primary Care Provider Encounter Details Date Type Department Care Team Description 06/25/2014 Notes/Orders [facility] Millie Pedraza MD [address] [place], [place] [address] [address]500 [facility] N 428256 (Wo rk) Social History Tobacco Use Types [...] Phan will meet with him on 07/08/14/ P HOME SUPERVISOR documented in this encounter Plan of Treatment Not on filedocumented as of this encounter Visit Diagnoses Not on filedocumented in this encounter Care Teams Activity Aid Relationship Specialty Start Date End Date Lurdes Thomas MD PCP - General 06/18/14 12/11/19 documented as of this encounter
--- OUTSIDE RECORDS SUMMARY | 2021-12-28 18:02 | XMS_ITS | Encounter Summary ---
:1955 Author Organization [facility] Address [address] [place] [address] Care Team Providers Name Role Phone Lurdes Thomas MD Primary Care Provider Reason for Referral Specialty Diagnoses / Procedures Referred By Contact Refer red To Contact Maria Esther Phan MD [address] [place], [place] [address] Referral ID Status Reason Start Date Expiration Date Visits Requ ested Visits Authorized Reason for Visit Reason Comments Device Check Encounter Details Date Type Department Care Team Description 10/07/2014 Nursing Visit [facility] Shawnee Hilario, RN [place] [address] arriaga [place], [place] [address] Social History Tobacco Use [...] Dr. Gonzalez [place] Surgery date/location: September 09 [facility] Device type: Activa PC Indication:Parkinsons Update [...] 150 therapy impedence 1159 current 1.816 Patient Leaded Glass Installer Range: Left 2.1-2.7 Right 1.7-2.5. Total face [...] agitans documented in this encounter Care Teams Pushcart Peddler Relationship Specialty Start Date End Date Lurdes Thomas MD PCP - General 06/18/14 12/11/19 documented as of this encounter
--- OUTSIDE RECORDS SUMMARY | 2021-12-28 18:02 | XMS_ITS | Encounter Summary ---
:1955 Author Organization [employer] Address [address], [place] [address] Care Team Providers Name Role Phone Lurdes Thomas MD Primary Care Provider Reason for Visit Reason Comments Post-Op Follow Up Call Encounter Details Date Type Department Care Team Description 09/23/2014 Telephone [facility] Shawnee Hilario RN Post-Op Follow Up Call [address] [place] [phone] Social History Tobacco Use Types Packs/Day [...] filedocumented in this encounter Care Teams Manager Legal Relationship Specialty Start Date End Date Lurdes Thomas MD PCP - General 06/18/14 12/11/19 documented as of this encounter
--- OUTSIDE RECORDS SUMMARY | 2021-12-28 18:02 | XMS_ITS | Encounter Summary ---
:1955 Author Organization [employer] Address [address] [address] Care Team Providers Name Role Phone Lurdes Thomas MD Primary Care Provider Reason for Visit Reason Comments Other Encounter Details Date Type Department Care Team Description 07/08/2014 Nursing Visit [facility] Doris Arauz, PD (Parkinson's [address] RN disease) ( Primary Dx) [place] [address] Social History Tobacco Use Types [...] Dr. Kp Phan. MD Doris Arauz, RN ELIGIBILITY documented in this encounter Plan of Treatment Not on filedocumented as of this encounter Visit Diagnoses Diagnosis PD (Parkinson's disease) (HRC) - Primary Paralysis agitans documented in this encounter Care Teams Deicer Repairer Electric Relationship Specialty Start Date End Date Lurdes Thomas MD PCP - General 06/18/14 12/11/19 documented as of this encounter
--- OUTSIDE RECORDS SUMMARY | 2021-12-28 18:02 | XMS_ITS | Encounter Summary ---
:1955 Author Organization [facility] Address [address] [address] Care Team Providers Name Role Phone Lurdes Thomas MD Primary Care Provider Reason for Visit Reason Comments Follow-up Encounter Details Date Type Department Care Team Description 07/08/2014 Office Visit [facility] Parashos, Sotirios Paralysis agitans [address] [place] A, MD (Primary Dx) Drive [address] [facility] [address] [place], [place] [phone] (Wo rk) Social History Tobacco Use Types Packs/Day Years Used Date Smoking Tobacco: Never Smokeless Tobacco: Never Alcohol Use Standard Drinks/Week Comments Yes 0 (1 standard drink = 0.6 oz pure alcoho l) Sex Assigned at Date Recorded Not on file documented as of this encounter Last Filed Vital Signs Vital Sign Reading Time Taken Comments Blood Pressure 138/78 07/08/2014 9:00 AM SIGNAL TOWER OPERATOR Pulse 84 07/08/2014 9:00 AM SIGNAL TOWER OPERATOR Temperature - - Respiratory Rate - - Oxygen Saturation - - Inhaled Oxygen Concentration - - Weight 98.5 kg (217 lb 3.2 oz) 07/08/2014 8:56 AM SIGNAL TOWER OPERATOR Height 185.4 cm (6' 0.99) 07/08/2014 8:56 AM SIGNAL TOWER OPERATOR Body Mass Index 28.66 07/08/2014 8:56 AM SIGNAL TOWER OPERATOR documented in this encounter Patient Instructions Patient Doris Awad RN - 07/08/2014 8:56 AM CST Thank you for enrolling in [employer]. Please follow the instructions below to securely access your online medical record. [employer] allows you to send messages to your doctor, view your test results, renewyour prescriptions, schedule appointments, and more. How Do I Sign Up? 1. In your Internet browser, go to: [email or web address] 2. Click on the Enter Activation Code link under the New User? section. You will see the New Member Sign Up page. 3. Enter your [employer] Activation Code exactly as it appears below. You will not need to use this code after you???ve completed the sign-up process. If you do not sign up before the expiration date, youmust request a new code. [employer] Activation Code: [email or web address] Expires: 08/07/2014 8:56 AM 4. Enter your Date of (mm/dd/yyyy), Home Phone Number and Zip Code as indicated, then click Next. You will be taken to the next sign-up page 5. Create a [employer] ID. This will be your [employer] login ID and cannot be changed, so think of one that is secure and easy to remember. 6. Create a [employer] password. You can change your password at any time. 7. Enter your Security Question and Answer. This can be used at a later time if you forget your password. Click Next. 8. Enter your e-mail address. You will receive e-mail notification when new information is availablein [employer]. 9. Click Sign In. You can now view your medical record. Additional Information If you have questions, you can call [phone] to talk to our [employer] staff. Remember, [employer] is NOT to be used for urgent needs. For medical emergencies, dial 911. AL TOWER OPERATOR documented in this encounter Progress Notes Maria Esther Phan MD - 07/08/2014 9:59 AM CST Dictated AL TOWER OPERATOR documented in this encounter Plan of Treatment Not on filedocumented as of this encounter Visit Diagnoses Diagnosis Paralysis agitans (HRC) - Primary Paralysis agitans documented in this encounter Care Teams Geological Aide Relationship Specialty Start Date End Date Lurdes Thomas MD PCP - General 06/18/14 12/11/19 documented as of this encounter
--- OUTSIDE RECORDS SUMMARY | 2021-12-28 18:02 | XMS_ITS | Encounter Summary ---
:1955 Author Organization [facility] Address [address], [place] [address] Care Team Providers Name Role Phone No Primary/Referring, Phy Primary Care Provider Unavailable Reason for Visit Reason Comments Patient Calling Back Encounter Details Date Type Department Care Team Description 04/15/2014 Telephone [facility] Shawnee Hilario, RN Patient Calling Back [address] corina Lamas [place], [place] [address] Social History Tobacco Use [...] TAC. States he spoke with Doris at [facility] and has an appointment set up 05/26/14. Do not see this appointment in our system at [place]. Transferred him to [facility]. Shawnee Hilario RN - 04/15/2014 4:22 PM CST Patient left a message on the DBS nurse line stating he was returning a call about scheduling DBS. We had called him a month or so ago to tell him about our process and our understanding was he wanted to wait until After May because of insurance reasons. It may have been the bowling or skating front desk clerk calling himto schedule. Left him a message asking him to speak to Gricelda. N MORTISER OPERATOR documented in this encounter Plan of Treatment Not on filedocumented as of this encounter Visit Diagnoses Not on filedocumented in this encounter Care Teams Undertaker Assistant Relationship Specialty Start Date End Date No Primary/Referring, Phy PCP - General 01/22/14 documented as of this encounter
--- OUTSIDE RECORDS SUMMARY | 2021-12-28 18:02 | XMS_ITS | Encounter Summary ---
:1955 Author Organization [facility] Address [address] [place] [address] Care Team Providers Name Role Phone Unavailable Primary Care Provider Unavailable Encounter Details Date Type Department Care Team Description 05/05/2009 Nursing Visit [facility] [place] [address] [place] [address] Social History Tobacco Use Types Packs/Day Years Used Date Smoking Tobacco: Never Assessed Sex Assigned at Date Recorded Not on file documented as of this encounter Plan of Treatment Not on filedocumented as of this encounter Visit Diagnoses Not on filedocumented in this encounter
--- OUTSIDE RECORDS SUMMARY | 2021-12-28 18:02 | XMS_ITS | Encounter Summary ---
:1955 Author Organization [employer] Address [address], [place] [address] Care Team Providers Name Role Phone Lurdes Thomas MD Primary Care Provider Reason for Visit Reason Comments Social Service Encounter Details Date Type Department Care Team Description 10/09/2014 Telephone [facility] Fabi Quinones LISW Social Service [address] [place], [place] [address] Social History Tobacco Use [...] difficult to get calls. Called pt's , Naatsha. Dicussed the relationship concerns she and Andrew are having. They are both open to counseling and recognize they need to work on their own issues. Provided names of a therapist Romulo Roth with some familiarity with PD and a well-known clinic in [place]. Natasha stated she had time today to call and inquire about insurance and get an appointment set. She was appreciative of the resources and support from Dr Phan. documented in this encounter Plan of Treatment Not on filedocumented as of this encounter Visit Diagnoses Not on filedocumented in this encounter Care Teams Practice Professional Relationship Specialty Start Date End Date Lurdes Thomas MD PCP - General 06/18/14 12/11/19 documented as of this encounter
--- OUTSIDE RECORDS SUMMARY | 2021-12-28 18:02 | XMS_ITS | Encounter Summary ---
:1955 Author Organization [facility] Address [address], [place] [address] Care Team Providers Name Role Phone Lurdes Thomas MD Primary Care Provider Encounter Details Date Type Department Care Team Description 08/20/2014 Notes/Orders [facility] Millie Pedraza MD [address] [place], [place] [address] [address] [facility] N [address] (Wo rk) Social History Tobacco Use Types [...] on filedocumented in this encounter Care Teams Intranet Support Relationship Specialty Start Date End Date Lurdes Thomas MD PCP - General 06/18/14 12/11/19 documented as of this encounter
--- OUTSIDE RECORDS SUMMARY | 2021-12-28 18:02 | XMS_ITS | Encounter Summary ---
:1955 Author Organization [facility] Address [address] [address] Care Team Providers Name Role Phone Unavailable Primary Care Provider Unavailable Encounter Details Date Type Department Care Team Description 08/17/2009 Office Visit [facility] Alexey Alvarez MD [address] [place] [address] [place] [address] [phone] (Wo rk) Social History Tobacco Use Types [...] signed by Alexey Garcia MD at 08/17/09 3414 Author: Alexey Garcia MD Service: (none) Author Type: Physician Filed: 09/11/102113 Note Time: 08/17/09 0001 Status: Signed Freight Unloader: Alexey Garcia MD (Physician) SUBJECTIVE: 54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 He has no side effects. He formerly was with [facility] and his insurance is changed. He has Parkinson's and sees Dr. Phan for its management in [place]. The remainder of the complete ROS is [...]
--- OUTSIDE RECORDS SUMMARY | 2021-12-28 18:02 | XMS_ITS | Encounter Summary ---
:1955 Author Organization [facility] Address [address], [place] [address] Care Team Providers Name Role Phone Unavailable Primary Care Provider Unavailable Encounter Details Date Type Department Care Team Description 11/19/2012 Notes/Orders [facility] Katalina Laughlin, PT [address] [address] [place] [address] [place], [place] [phone] (Wo rk) Social History Tobacco Use Types Packs/Day Years Used Date Smoking Tobacco: Never Assessed Sex Assigned at Date Recorded Not on file documented as of this encounter Progress Notes Katalina Laughlin, PT - 11/19/2012 9:58 AM CDT No show for scheduled PT consult appointment this morning. Katalina Laughlin PT, [facility] License # [id number] documented in this encounter Plan of Treatment Not on filedocumented as of this encounter Visit Diagnoses Not on filedocumented in this encounter
--- OUTSIDE RECORDS SUMMARY | 2021-12-28 18:02 | XMS_ITS | Encounter Summary ---
:1955 Author Organization [employer] Address [address], [place] [address] Care Team Providers Name Role Phone No Primary/Referring, Phy Primary Care Provider Unavailable Reason for Visit Reason Comments Questions Encounter Details Date Type Department Care Team Description 05/05/2014 Telephone [place] [facility] Fabi Ray, RN Questions [address] corina Lamas [place], [place] [address] Social History Tobacco Use [...] Phan. He sees Dr. Phan now in [place] due to copay. [place]. Also explained will need to see the DBS nurse at [place] post DBS if approved for surgery. Good comprehension of plan. Transferred to front line to set up results appointment with Dr. Phan and to review pre-DBS appointments. Post-note: Confirmed with front line that 05/26/13 appt is for MRI and neuropsych with Dr. Ramirez. [employer] MEMBER documented in this encounter Plan of Treatment Not on filedocumented as of this encounter Visit Diagnoses Not on filedocumented in this encounter Care Teams Boiler House Operator Relationship Specialty Start Date End Date No Primary/Referring, Phy PCP - General 01/22/14 documented as of this encounter
--- OUTSIDE RECORDS SUMMARY | 2021-12-28 18:02 | XMS_ITS | Encounter Summary ---
:1955 Author Organization [employer] Address [address] [place] [address] Care Team Providers Name Role Phone Lurdes Thomas MD Primary Care Provider Reason for Referral Specialty Diagnoses / Procedures Referred By Contact Refer red To Contact Maria Esther Phan MD [address] [place], [place] [address] Referral ID Status Reason Start Date Expiration Date Visits Requ ested Visits Authorized Reason for Visit Reason Comments Balance/gait Dysfunction Encounter Details Date Type Department Care Team Description 11/04/2014 Initial Consult [facility] Katalina Laughlin normality of gait (Primary Dx); Therapy L, PT Paralysis agitans; [address] [facility] [place] [phone] Social History Tobacco Use Types Packs/Day Years [...] 1955 Physical Therapy Parkinson Evaluation/Plan of Care [facility] Initial Certification Period: 11/04/2014 to 02/02/15 Referring Provider: Dr. Maria Esther Phan Visit Diagnosis/ICD: Diagnosis (ICD9) ICD-9-CM ICD-10-CM 1. Abnormality of gait 781.2 R26.9 2. Paralysis agitans (HCC) 332.0 G20 3. Personal history of fall V15.88 Z91.81 Precautions: Fall precautions, DBS Onset/Referral Date: 10/14/14 Reason for Referral: Outpatient PT. Orders: Evaluate and treat. Counts Include [facility] [place] Services: Occupational therapy. Speech therapy. Exacerbation Date: [...] to residence: Stairs to enter. -[facility] -Living environment: Urban-mostly paved areas to [...] Clear. Rapid speech, occasional stuttering. 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 Did recently travel to [place] on business, however. OBJECTIVE Blood Pressure: Symptoms: [...] Goal Achievement: Distance from center (lives in [place]) Rehab Prognosis: Good PLAN Planned Treatment: ADL/Home [...] 90 day(s). Total Treatment: 60 minutes The sea foam kiss maker is completed by the therapist and the referring clinician's electronic signature certifies medical necessity for the plan above. Katalina Laughlin PT Physical Therapist [place] License # [id number] documented in this encounter Plan of Treatment Scheduled Referrals Name Type Priority Associated Diagnoses Order S [facility] Physical Therapy Referral Routine Paralysis agitans (HRC) Ordered: 11/04/2014, Expires: 2014 documented as of this encounter Visit Diagnoses Diagnosis Abnormality of gait - Primary Paralysis agitans (HRC) Paralysis agitans Personal history of fall documented in this encounter Care Teams Engineering Assistant Relationship Specialty Start Date End Date Lurdse Thomas MD PCP - General 06/18/14 12/11/19 documented as of this encounter
--- OUTSIDE RECORDS SUMMARY | 2021-12-28 18:02 | XMS_ITS | Encounter Summary ---
:1955 Author Organization [facility] Address [address] [place] [address] Care Team Providers Name Role Phone No Primary/Referring, Phy Primary Care Provider Unavailable Reason for Visit Reason Comments Appt. Scheduled Encounter Details Date Type Department Care Team Description 05/20/2014 Telephone [facility] Sheri Pearson RN Appt. Scheduled [address] [place], [place] [address] Social History Tobacco Use [...] scheduled for on Monday. It is at [facility] at the purdum location. ON SETTER documented in this encounter Plan of Treatment Not on filedocumented as of this encounter Visit Diagnoses Not on filedocumented in this encounter Care Teams Nurse Staff Community Health Relationship Specialty Start Date End Date No Primary/Referring, Lupilloy PCP - General 01/22/14 documented as of this encounter
--- OUTSIDE RECORDS SUMMARY | 2021-12-28 18:02 | XMS_ITS | Encounter Summary ---
:1955 Author Organization [employer] Address [address] [place] [address] Care Team Providers Name Role Phone Lurdes Thomas MD Primary Care Provider Reason for Referral Specialty Diagnoses / Procedures Referred By Contact Refer red To Contact Maria Esther Phan MD [address] [place], [place] [address] Referral ID Status Reason Start Date Expiration Date Visits Requ ested Visits Authorized CAL GOODS DRILLING MACHINE OPERATOR Reason for Visit Reason Comments Social Service Encounter Details Date Type Department Care Team Description 06/18/2014 Initial Consult [facility] Fabi Beverly Paralys is [facility] Services VAN DRIVER [address] corina Lamas [place], [place] [address] Social History Tobacco Use [...] Deep Brain Stimulation (DBS) Assessment at the [facility]. Assessment: Current Social Situation Pt and his live in their home in [place]. The pt does have any children, but his has two. The pt is close to his step-daughter and her family. 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 He has been open about his diagnosis [...] have time to discuss during this session. Painting Supervisor provided contact information and explained availability to answer any further questions or concerns. Session was 50 minutes long. CAL GOODS DRILLING MACHINE OPERATOR documented in this encounter Plan of Treatment Scheduled Referrals Name Type Priority Associated Diagnoses Order S chedule [facility] Referral Routine Paralysis agitans (HRC) Ordered: 06/20/2014, CONSULT (AMB) Expires: 06/20 documented as of this encounter Visit Diagnoses Diagnosis Paralysis agitans (HRC) Paralysis agitans documented in this encounter Care Teams Eight Section Blower Relationship Specialty Start Date End Date Lurdes Thomas MD PCP - General 06/18/14 12/11/19 documented as of this encounter
--- OUTSIDE RECORDS SUMMARY | 2021-12-28 18:03 | XMS_ITS | Encounter Summary ---
:1955 Author Organization [facility] Address [address] [place] [address] Care Team Providers Name Role Phone Unavailable Primary Care Provider Unavailable Encounter Details Date Type Department Care Team Description 07/30/2007 PN Conversion Only SABIANISM CONVERSION Social History Tobacco Use Types Packs/Day Years Used Date Smoking Tobacco: Never Assessed Sex Assigned at Date Recorded Not on file documented as of this encounter Plan of Treatment Not on filedocumented as of this encounter Visit Diagnoses Not on filedocumented in this encounter
--- OUTSIDE RECORDS SUMMARY | 2021-12-28 18:03 | XMS_ITS | Encounter Summary ---
:1955 Author Organization [facility] Address [address] [place] [address]. [place] [address] Care Team Providers Name Role Phone Lurdes Thomas MD Primary Care Provider [phone] Encounter Details Date Type Department Care Team Description 08/08/2020 [facility] [address] [place] [address] Social History Tobacco Use Types Packs/Day [...] on filedocumented in this encounter Care Teams Product Representative Relationship Specialty Start Date End Date Lurdes Thomas MD PCP - General Internal Medicine 06/11/14 12/16/20 documented as of this encounter
--- OUTSIDE RECORDS SUMMARY | 2021-12-28 18:03 | XMS_ITS | Encounter Summary ---
:1955 Author Organization [place] Address [address] [facility] [place] [address] Care Team Providers Name Role Phone Lurdes Thomas MD Primary Care Provider [phone] Reason for Visit Reason Comments Neurologic Problem Staple Removal Encounter Details Date Type Department Care Team Description 09/22/2014 Office Visit [facility] Rachel Cuadra, RECREATION SPECIALIST BLASTING HELPER [facility] [address] [place] [address] [place] [address] S/P deep brain [facility] Arline Peñaloza, MARISOL BLASTING HELPER [address] [place] [address] stimulator placement Vivian (Primary Dx) [address] [address] Social History Tobacco Use Types [...] swelling. [facility] [place] [address] Pager [phone] Mony Meraz 09/22/2014 10:30 AM CDT Andrew [...] imary documented in this encounter Care Teams Needle Punch Operator Relationship Specialty Start Date End Date Lurdes Tohmas MD PCP - General Internal Medicine 06/11/14 12/16/20 documented as of this encounter
--- OUTSIDE RECORDS SUMMARY | 2021-12-28 18:03 | XMS_ITS | Encounter Summary ---
:1955 Author Organization [place] Address [address] [place] [address]. [place] [address] Care Team Providers Name Role Phone Lurdes Thomas MD Primary Care Provider [phone] Reason for Visit Reason Onset Date Comments Other 11/13/2014 Battery moving in [facility] Encounter Details Date Type Department Care Team Description 11/13/2014 Telephone [facility] Gonzalez Rowland Other (Ba ttroberto carlos moving [facility] MD Tylor in chest) [place] XX RESIGNED XX [address] [place] [address] [place] [id number] [place] [address] [place] [id number] [phone] Social History Tobacco Use Types Packs/Day Years [...] Notes Telephone Encounter - Rachel Cuadra, MARISOL CDL B DRIVER - 11/13/2014 3:03 PM CDT Pt called [...] on filedocumented in this encounter Care Teams Fish Farm Laborer Relationship Specialty Start Date End Date Lurdes Thomas MD PCP - General Internal Medicine 06/11/14 12/16/20 documented as of this encounter
--- OUTSIDE RECORDS SUMMARY | 2021-12-28 18:03 | XMS_ITS | Encounter Summary ---
:1955 Author Organization [place] Address [address] [place] [address]. [place] [address] Care Team Providers Name Role Phone Lurdes Thomas MD Primary Care Provider Reason for Referral Medication Prior Authorization (Routine) - Closed Specialty Diagnoses / Procedures Referred By Contact Refer red To Contact Diagnoses Hyperlipidemia with target LDL less than 130 Lurdes Thomas MD [address] [address] Referral ID Status Reason Start Date Expiration Date Visits Requ ested Visits Authorized [id number] Closed Reason for Visit Reason Onset Date Comments Refill Request 10/20/2015 PRAVASTATIN 80MG Encounter Details Date Type Department Care Team Description 10/20/2015 Refill [facility] Eag Lurdes Rojas Refill Request 1440 Demian Laughlin MD (PRAVASTATIN 80MG) [place] [address] [facility] [phone] [place] [address] [place] [phone] (Wo rk) Social History Tobacco [...] for 6 months. Please advise pt. Maggie commercial photographer Nurse Telephone Encounter - Julisa Hayden - 10/20/2015 11:53 AM CDT PRAVASTATIN 80MG Last Written Prescription Date: 04/13/2015 Last Fill Quantity: 90, # refills: 1 Last Office Visit with [facility], [facility] or [facility] prescribing provider: 02/12/2015 CHOL 219 11/25/2014 HDL 65 11/25/2014 LDL 123 11/25/2014 TRIG 153 11/25/2014 CHOLHDLRATIO 3.4 11/25/2014 documented in this encounter Plan of Treatment Not on filedocumented as of this encounter Visit Diagnoses Diagnosis Hyperlipidemia with target LDL less than 130 - Primary Other and unspecified hyperlipidemia documented in this encounter Care Teams Or Manager Relationship Specialty Start Date End Date Serum, Lurdes Truman, MD PCP - General Internal Medicine 06/11/14 12/16/20 documented as of this encounter
--- OUTSIDE RECORDS SUMMARY | 2021-12-28 18:03 | XMS_ITS | Encounter Summary ---
:1955 Author Organization [facility] Address [address] [place] [address] Care Team Providers Name Role Phone Unavailable Primary Care Provider Unavailable Encounter Details Date Type Department Care Team Description 05/11/2006 PN Conversion Only AIRPORT CONVERSION [address] [place] [address] Social History Tobacco Use Types Packs/Day Years Used Date Smoking Tobacco: Never Assessed Sex Assigned at Date Recorded Not on file documented as of this encounter Plan of Treatment Not on filedocumented as of this encounter Visit Diagnoses Not on filedocumented in this encounter
--- OUTSIDE RECORDS SUMMARY | 2021-12-28 18:03 | XMS_ITS | Encounter Summary ---
:1955 Author Organization [place] Address [address] [place] [address] Care Team Providers Name Role Phone Samantha Stauffer MD Primary Care Provider [phone] Reason for Referral Diagnostic Imaging XR (Routine) - Closed Specialty Diagnoses / Procedures Referred By Contact Refer red To Contact Diagnoses Esophageal dysphagia Charanjit Gray MD Procedures XR Esophagram OR GASTROENTEROLOGY [place] [address] [address] [place], [place] [address] Referral ID Status Reason Start Date Expiration Date Visits Requ ested Visits Authorized [id number] Closed 12/09/2020 12/09/2021 1 1 Reason for Visit Diagnostic Imaging XR (Routine) - Closed Specialty Diagnoses / Procedures Referred By Contact Refer red To Contact Diagnoses Esophageal dysphagia Charanjit Gray MD Procedures XR Esophagram OR GASTROENTEROLOGY PA [address] [address] [place], [place] [address] Referral ID Status Reason Start Date Expiration Date Visits Requ ested Visits Authorized [id number] Closed 12/09/2020 12/09/2021 1 1 Encounter Details Date Type Department Care Team Description 12/17/2020 [facility] Charanjit Gray MD Esophageal Encounter [facility] OR GASTROENTEROLOGY [place] dysphagia [address] [place] [address] [address] [place] [address] [place], [place] [phone] (Wo rk) [address] [phone] Social History Tobacco Use Types Packs/Day Years [...] dose documented in this encounter Care Teams Weed Cooking Operator Relationship Specialty Start Date End Date Samantha Stauffer MD PCP - General Family Medicine 12/17/20 [place] [address] documented as of this encounter
--- OUTSIDE RECORDS SUMMARY | 2021-12-28 18:03 | XMS_ITS | Encounter Summary ---
:1955 Author Organization [place] Address [address] [facility] [place] [address] Care Team Providers Name Role Phone Lurdes Thomas MD Primary Care Provider [phone] Encounter Details Date Type Department Care Team Description 10/09/2014 Medical Correspondence [facility] Scan, LETTER FROM [facility], Non-Provider NIECY COOPER, Health Info Elicia CONTRERAS MD-09/20 Srv[facility] [address] [facility] [address] [place] [address] Social History Tobacco Use Types Packs/Day [...] on filedocumented in this encounter Care Teams Forestry And Wildlife Manager Relationship Specialty Start Date End Date Lurdes Thomas MD PCP - General Internal Medicine 06/11/14 12/16/20 documented as of this encounter
--- OUTSIDE RECORDS SUMMARY | 2021-12-28 18:03 | XMS_ITS | Encounter Summary ---
:1955 Author Organization [place] Address [address] [place] [address]. [place] [address] Care Team Providers Name Role Phone Lurdes Thomas MD Primary Care Provider [phone] Reason for Visit Reason Comments Recheck Medication Encounter Details Date Type Department Care Team Description 02/12/2015 Office Visit [facility] Lurdes Thomas Back pain (Primary Dx); Uzair Laughlin MD Hyperlipidemia LDL goal < 130; [address] [employer] Prediabetes; [place] [address] [place] Vitamin D deficiency; [phone] [address] [facility] Erectile d ysfunction; RD Screening for colon cancer; [place], [place] Screening for p rostate cancer [address] Social History Tobacco Use Types Packs/Day Years [...] list, Allergies, and Medical/Social/Surgical histories reviewed in [facility] andupdated as appropriate. OBJECTIVE: BP 100/62 mmHg [...] annual visit and as needed Lurdes Thomas [facility] UZAIR documented in this encounter Nursing Notes [...] Signature PSA 0.50 0 - 4 ug/L [facility] Specimen Anatomical Collection Method Collection Time Receive d Time (Source) Location / / Volume Laterality Blood specimen 02/12/2015 10:25 5 (specimen) AM CDT 10:30 AM CDT Lurdes Thomas MD LAB - BLOOD ORDERABLES Performing Organization Address City/State/ZIP Code Phon e Number [facility] [address] [place] [address] [facility] [address] [place] [address], [place] [phone] Vitamin D Deficiency (02/12/2015 10:25 AM CDT) P athologist Signature Vitamin D 29 20 - 75 [facility] Deficiency ug/L [place] [facility] screening [facility] Comment: Season, race, dietary intake, and treatm ent affect the concentration of 61-hjrjuhm-Wvawipx D. Values may decrea se during winter [...] Organization Address City/State/ZIP Code Phon e Number [facility] [address] [place] [address] [facility] Glucose (02/12/2015 10:25 AM CDT) athologist Signature Glucose 94 70 - 99 [facility] mg/dL [facility] Specimen Anatomical Collection Method Collection Time Receive d Time (Source) Location / / Volume Laterality Blood specimen 02/12/2015 10:25 5 (specimen) AM CDT 10:30 AM CDT Lurdes Thomas MD LAB - BLOOD ORDERABLES Performing Organization Address City/State/ZIP Code Phon e Number [facility] [address] [place] [address] documented in this encounter Visit Diagnoses Diagnosis [...] prostate documented in this encounter Care Teams Green Plumber Relationship Specialty Start Date End Date Lurdes Thomas MD PCP - General Internal Medicine 06/11/14 12/16/20 documented as of this encounter
--- OUTSIDE RECORDS SUMMARY | 2021-12-28 18:03 | XMS_ITS | Encounter Summary ---
:1955 Author Organization [place] Address [address] [place] [address]. [place] [address] Care Team Providers Name Role Phone Lurdes Thomas MD Primary Care Provider [phone] Samantha Stauffer MD Primary Care Provider [phone] Encounter Details Date Type Department Care [...] on filedocumented in this encounter Care Teams Bone Crusher Relationship Specialty Start Date End Date Lurdes Thomas MD PCP - General Internal Medicine 06/11/14 12/16/20 Samantha Stauffer MD PCP - General Family Medicine 12/17/[address] [address] documented as of this encounter
--- OUTSIDE RECORDS SUMMARY | 2021-12-28 18:03 | XMS_ITS | Encounter Summary ---
:1955 [facility] Address [address], [place] [address] Care Team Providers Name Role Phone Unavailable Primary Care Provider Unavailable Encounter Details Date Type Department Care Team Description 07/31/2007 Hospital Encounter [facility]V [facility] Nela Soriano, RN [address] BLNela [place]agnon, [place] [address] Social History Tobacco Use Types Packs/Day Years [...] Therapist, Occupational Therapist, Speech and Language Pathologist, Furnace Combination Analyst, Registered Nurse). Orders: Evaluate and treat. Exacerbation Date: 08/21/2007 Initial Certification Dates: 08/23/2007 to 09/21/07 SUBJECTIVE: Mobility Limitations Reported: Denies limitations. Balance/Falls in past 6 months: None reported. Motor Fluctuations: No. Pain Screen: No pain. Past Medical History: Unremarkable per patient report. Support System: Lives with primary acute care certified nursing assistant. Living Situation: Private home, more than 1 level. [facility] Living Environment: Urban-mostly paved areas to ambulate. Community Mobilities: Driving-unrestricted. Frequency of Outings: Leaves home on a daily basis. Leisure Activities: Plays guitar. Formal Exercises: Walking-treadmill or indoors. Weight lifting. Yoga. Exercise Frequency: Several times per week. Communication: Clear. 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 Travels several times a year. Patient's [...] -Exercise handouts. Procedures: Physical Therapy Evaluation (CPT 20395) Therapeutic Exercise (CPT 07818) 30 minutes TOTAL TREATMENT TIME: 60 minutes. Electronically signed by: Sandrine Martinez, PT, 7168, 08/23/2007 *SH~REHAB~PTPARKEVA~ Shorthand Note completed on: 08/23/2007 3:15 PM documented in this encounter Plan of Treatment Not on filedocumented as of this encounter Visit Diagnoses Not on filedocumented in this encounter
--- OUTSIDE RECORDS SUMMARY | 2021-12-28 18:03 | XMS_ITS | Encounter Summary ---
:1955 Author Organization [place] Address [address] [facility] [place] [address] Care Team Providers Name Role Phone Lurdes Thomas MD Primary Care Provider [phone] Encounter Details Date Type Department Care Team Description 11/25/2014 Orders Only [facility] Eag an Hyperlipidemia LDL goal < 1440 [employer] [address] [place] [address] Social History Tobacco [...] athologist Signature Cholesterol 219 (H) <200 mg/dL [facility] Comment: LDL Cholesterol is the primary guide to therapy. The NCEP recommends further evaluation of: patients with cholesterol greater than 200 mg/dL if additional risk facto rs are present, cholesterol greater than 240 mg/dL, triglycerides greater than 1 50 mg/dL, or HDL less than 40 mg/dL. Triglycerides 153 (H) 0 - 150 mg/dL [place] [facility] Comment: Fasting specimen HDL Cholesterol 65 >40 mg/dL [place] [facility] LDL Cholesterol Calculated 123 0 - 129 mg/dL [facility] Comment: LDL Cholesterol is the primary guide to therapy: LDL-cholesterol goal in high risk patients is <100 mg/dL and in very high risk patients is <70 mg/dL. VLDL-Cholesterol 31 (H) 0 - 30 mg/dL [place] A[facility] Cholesterol/HDL Ratio 3.4 0.0 - 5.0 [facility] Specimen Anatomical Collection Method Collection Time Receive d Time (Source) Location / / Volume Laterality Blood specimen 11/25/2014 7:57 AM 015 7:58 (specimen) CDT AM CDT Lurdes Thomas MD LAB - BLOOD ORDERABLES Performing Organization Address City/State/ZIP Code Phon e Number [facility] [address] [place] [address] documented in this encounter Visit Diagnoses Diagnosis Hyperlipidemia LDL goal < 130 Other and unspecified hyperlipidemia documented in this encounter Care Teams Turret Punch Operator Relationship Specialty Start Date End Date Lurdes Thomas MD PCP - General Internal Medicine 06/11/14 12/16/20 documented as of this encounter
--- OUTSIDE RECORDS SUMMARY | 2021-12-28 18:03 | XMS_ITS | Encounter Summary ---
:1955 Author Organization [place] Address [address] [place] [address]. [place] [address] Care Team Providers Name Role Phone Lurdes Thomas MD Primary Care Provider [phone] Reason for Visit Reason Onset Date Comments Prior Auth - Medication 02/12/2015 viagra Encounter Details Date Type Department Care Team Description 02/12/2015 Telephone [facility] Lurdes [place] Prior Auth - Medication 14[address] [facility] MD Truman (viagra ) [place] [address] [facility] [phone] [place] [address] (Wo rk) Social History Tobacco Use [...] on filedocumented in this encounter Care Teams Biometrics Instructor Relationship Specialty Start Date End Date Lurdes Thomas MD PCP - General Internal Medicine 06/11/14 12/16/20 documented as of this encounter
--- OUTSIDE RECORDS SUMMARY | 2021-12-28 18:03 | XMS_ITS | Encounter Summary ---
:1955 Author Organization [place] Address [address] [place] [address]. [place] [address] Care Team Providers Name Role Phone Lurdes Thomas MD Primary Care Provider [phone] Reason for Visit Reason Onset Date Comments Panel Management 06/25/2015 Encounter Details Date Type Department Care Team Description 06/25/[address] [facility] Lurdes [place] Panel Management 14[address] [facility] [place] [address] [facility] [phone] 8675 [place], [place] [address] (Wo rk) Social History Tobacco Use [...] a reminder letter regarding the FIT test. ORK MGR Telephone Encounter - Tamy Leahy LPN - 06/25/2015 2:13 PM CST Panel Management Review Patient has the following on his problem list: none Composite cancer screening Chart review shows that this patient is due/due soon for the following Fecal Colorectal (FIT) Summary: Patient is due/failing the following: FIT Action needed: FIT test completion Type of outreach: Sent [employer] message. Reminding patient to complete FIT test. Questions for provider review: None Tamy Leahy LPN Chart routed to Care Team . ORK MGR documented in this encounter Plan of Treatment Not on filedocumented as of this encounter Visit Diagnoses Not on filedocumented in this encounter Care Teams Sales And Marketing Director Relationship Specialty Start Date End Date Lurdes Thomas MD PCP - General Internal Medicine 06/11/14 12/16/20 documented as of this encounter
--- OUTSIDE RECORDS SUMMARY | 2021-12-28 18:03 | XMS_ITS | Encounter Summary ---
:1955 [facility] Address [address] [place] [address] Care Team Providers Name Role Phone Unavailable Primary Care Provider Unavailable Encounter Details Date Type Department Care Team Description 05/04/2009 PN Conversion Only METAL TILE LATHER [address] [place] [address] Social History Tobacco Use Types Packs/Day Years Used Date Smoking Tobacco: Never Assessed Sex Assigned at Date Recorded Not on file documented as of this encounter Plan of Treatment Not on filedocumented as of this encounter Visit Diagnoses Not on filedocumented in this encounter
--- OUTSIDE RECORDS SUMMARY | 2021-12-28 18:03 | XMS_ITS | Encounter Summary ---
:1955 Author Organization [place] Address [address] [place] [address]. [place] [address] Care Team Providers Name Role Phone Lurdes Thomas MD Primary Care Provider Reason for Visit Reason Onset Date Comments Refill Request 04/15/2016 PRAVASTATIN 80MG Encounter Details Date Type Department Care Team Description 04/15/2016 Refill [facility] Eag an Lurdes Thomas Refill Request 1440 [facility] MD Truman (PRAVASTATIN 80MG) [place] [address] [facility] [phone] [address] (Wo rk) Social History Tobacco Use [...] Lurdes Thomas MD - 04/15/2016 4:37 PM HAIR SPINNING MACHINE OPERATOR Mychart sent telling patient cannot continue to fill medications without visit. Lurdes Thomas MD Internal Medicine/Pediatrics SPINNING MACHINE OPERATOR Telephone Encounter - Chanell Villa RN - 04/15/2016 4:30 PM HAIR SPINNING MACHINE OPERATOR Made multiple attempts(LM & MC message) from October advising pt that he is due for an OV. Pt haven't responded. Routing refill request to provider for review/approval because: Hawa given x1 and patient did not follow up, please advise Chanell.Liliam silverware supervisor Nurse SPINNING MACHINE OPERATOR Telephone Encounter - Genie Mello - 04/15/2016 4:28 PM CST PRAVASTATIN 80MG Last Written Prescription Date: 10/23/2015 Last Fill Quantity: 90, # refills: 1 Last Office Visit with [facility], [facility] or [facility] prescribing provider: 02/12/2015 CHOL 219 11/25/2014 HDL 65 11/25/2014 LDL 123 11/25/2014 TRIG 153 11/25/2014 CHOLHDLRATIO 3.4 11/25/2014 SPINNING MACHINE OPERATOR documented in this encounter Plan of Treatment Not on filedocumented as of this encounter Visit Diagnoses Diagnosis Hyperlipidemia with target LDL less than 130 - Primary Other and unspecified hyperlipidemia documented in this encounter Care Teams Generation Engineer Relationship Specialty Start Date End Date Lurdes Thomas MD PCP - General Internal Medicine 06/11/14 12/16/20 documented as of this encounter
--- OUTSIDE RECORDS SUMMARY | 2021-12-28 18:03 | XMS_ITS | Encounter Summary ---
:1955 Author Organization [place] Address [address] [place] [address]. [place] [address] Care Team Providers Name Role Phone Lurdes Thomas MD Primary Care Provider [phone] Encounter Details Date Type Department Care Team Description 08/29/2020 Immunization [facility] Logan Nelson Vaccination [address] [address] [place] [address] [phone] Social History Tobacco Use Types Packs/Day Years [...] on filedocumented in this encounter Care Teams Dish Up Person Relationship Specialty Start Date End Date Lurdes Thomas MD PCP - General Internal Medicine 06/11/14 12/16/20 documented as of this encounter
--- OUTSIDE RECORDS SUMMARY | 2021-12-28 18:03 | XMS_ITS | Encounter Summary ---
:1955 Author Organization [place] Address [address] [place] [address]. [place] [address] Care Team Providers Name Role Phone Samantha Stauffer MD Primary Care Provider [phone] Encounter Details Date Type Department Care [...] on filedocumented in this encounter Care Teams Cataract Lens Generator Relationship Specialty Start Date End Date Samantha Stauffer MD PCP - General Family Medicine 12/17/[address] [address] documented as of this encounter
--- OUTSIDE RECORDS SUMMARY | 2021-12-28 18:03 | XMS_ITS | Encounter Summary ---
:1955 Author Organization [place] Address [address] [facility] [place] [address] Care Team Providers Name Role Phone Lurdes Thomas MD Primary Care Provider [phone] Reason for Visit (Routine) - Closed Specialty Diagnoses / Procedures Referred By Contact Refer red To Contact Radiology / Radiology. Procedures Uu Mri MR LUMBAR SPINE [address] [place] [address] Phone: Referral ID Status Reason Start Date Expiration Date Visits Requ ested Visits Authorized [id number] Closed 08/18/2015 08/17/2016 1 1 Encounter Details Date Type Department Care Team Description 08/21/2015 Hospital Encounter [facility] ParashosVianeye re low back pain [facility] Imaging Maria Esther Amaro MD [address] [place], [place] [address] [employer] [address] [place] [address] Social History Tobacco Use Types [...] Lumbago documented in this encounter Care Teams Parking Enforcement Manager Relationship Specialty Start Date End Date Lurdes Thomas MD PCP - General Internal Medicine 06/11/14 12/16/20 documented as of this encounter
--- OUTSIDE RECORDS SUMMARY | 2021-12-28 18:03 | XMS_ITS | Encounter Summary ---
:1955 [facility] Address [address] [place] [address] Care Team Providers Name Role Phone Unavailable Primary Care Provider Unavailable Encounter Details Date Type Department Care Team Description 12/04/2007 Hospital Encounter CONV METH [id number] Nela Soriano, RN [address] BLNela [place]agnon, [place] [address] Social History Tobacco Use Types Packs/Day Years [...]
--- OUTSIDE RECORDS SUMMARY | 2021-12-28 18:03 | XMS_ITS | Encounter Summary ---
:1955 Author Organization [place] Address [address] [place] [address]. [place] [address] Care Team Providers Name Role Phone Lurdes Thomas MD Primary Care Provider Samantha Stauffer MD Primary Care Provider [phone] Encounter Details Date Type Department Care [...] on filedocumented in this encounter Care Teams Threat Monitoring Analyst Relationship Specialty Start Date End Date Lurdes Thomas MD PCP - General Internal Medicine 06/11/14 12/16/20 Samantha Stauffer MD PCP - General Family Medicine 12/17/[address] [address] documented as of this encounter
--- OUTSIDE RECORDS SUMMARY | 2021-12-28 18:03 | XMS_ITS | Encounter Summary ---
:1955 Author Organization [facility] Address [address] [place] [address] Care Team Providers Name Role Phone Unavailable Primary Care Provider Unavailable Encounter Details Date Type Department Care Team Description 08/23/2007 Therapy CONV METH SP Jasbir Laughlin OLDER WORKER SPECIALIST [address] [facility] [place] Liliam Joshi N [phone] (Wo rk) Social History Tobacco Use Types [...] 0322 Note Time: 08/23/07 0001 Status: Signed Aquarium Tank Attendant: Bárbara Laughlin CCC-OLDER WORKER SPECIALIST (Speech and Language Pathologist) [facility] [place] Speech Pathology - Parkinson's Disease Evaluation Primary [...] No. Smoking: No. Education: High school. 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 Marital Status: . Living Arrangement: Lives with spouse. Safety in living environment: Patient feels safe in current living environment. Vulnerable adult assessment = low risk OBJECTIVE Behavioral Characteristics: Alert. Motivated. Cooperative. Tests Administered: [facility] Assessment of Communication in Parkinson's Disease - [...] One time evaluation and treatment only at [facility] [place]. Creative Services Director goals: -Maximize speech and voice for functional [...] 60 minutes. Electronically signed by: Bárbara Laughlin MA/LAVELL-OLDER WORKER SPECIALIST, 5063, 08/23/2007 *SH~REHAB~SPARKEVAL~ Shorthand Note Completed on: 08/23/2007 1:19 PM documented in this encounter Plan of Treatment Not on filedocumented as of this encounter Visit Diagnoses Not on filedocumented in this encounter
--- OUTSIDE RECORDS SUMMARY | 2021-12-28 18:03 | XMS_ITS | Encounter Summary ---
:1955 [facility] Address [address] [place] [address] Care Team Providers Name Role Phone Unavailable Primary Care Provider Unavailable Encounter Details Date Type Department Care Team Description 05/06/2008 Hospital Encounter CONV METH PKDNela Arellano, RN [address] [place], [place] [address] Social History Tobacco Use Types Packs/Day Years [...]
--- OUTSIDE RECORDS SUMMARY | 2021-12-28 18:03 | XMS_ITS | Encounter Summary ---
:1955 [facility] Address [address] [place] [address] Care Team Providers Name Role Phone Unavailable Primary Care Provider Unavailable Encounter Details Date Type Department Care Team Description 07/22/2008 [facility] [place] [facility], Medicine [address] [place] [address] [place] [address] Social History Tobacco Use Types Packs/Day Years Used Date Smoking Tobacco: Never Assessed Sex Assigned at Date Recorded Not on file documented as of this encounter Plan of Treatment Not on filedocumented as of this encounter Visit Diagnoses Not on filedocumented in this encounter
--- OUTSIDE RECORDS SUMMARY | 2021-12-28 18:03 | XMS_ITS | Encounter Summary ---
:1955 Author [facility] Address [address] [place] [address] Care Team Providers Name Role Phone Unavailable Primary Care Provider Unavailable Encounter Details Date Type Department Care Team Description 05/11/2006 Office Visit [facility] Charanjit [facility] [address] [place] [address] Social History Tobacco Use Types Packs/Day Years Used Date Smoking Tobacco: Never Assessed Sex Assigned at Date Recorded Not on file documented as of this encounter Plan of Treatment Not on filedocumented as of this encounter Visit Diagnoses Not on filedocumented in this encounter
--- OUTSIDE RECORDS SUMMARY | 2021-12-28 18:03 | XMS_ITS | Encounter Summary ---
:1955 Author Organization [facility] Address [address] [facility] [place] [address] Care Team Providers Name Role Phone Lurdes Thomas MD Primary Care Provider [phone] Reason for Visit Auth/Cert - Closed Specialty Diagnoses / Procedures Referred By Contact Refer red To Contact Surgery Diagnoses PARKINSONS DISEASE Sh Periop Services Procedures IMPLANT PULSE GENERATOR SUBCUTANEOUS [address] [place] [address] Phone: Referral ID Status Reason Start Date Expiration Date Visits Requ ested Visits Authorized [id number] Closed 1 1 Encounter Details Date Type Department Care Team Description 09/16/2014 Surgery [facility] Gonzalez Rowland BILATERAL LEAD EXTENSION Southhelena Snider MD AND RIGHT INFRACLAVICULAR Services XX RESIGNED XX PULSE GENERATOR PLACEMENT [address] ([employer]) [address] [place] [address] [place] [address] [phone] Surgery Details Date/Time Status Location OR Service [...] MD Primary Neurosurgery 1 Arline Peñaloza APRN POST OFFICE MANAGER Patient Services Technician Autho rization 1 documented in this encounter [...] Physician Discharge Summary Patient ID: Andrew Pang [id number] 59 year old 1955 Admit date: 09/16/2014 Discharge date and time: 09/16/2014 Admitting Physician: Gonzalez Rowland MD Discharge Physician: Arline Hutson [facility] Admission Diagnoses: PARKINSONS DISEASE Discharge Diagnoses: Parkinsons [...] deep brain stimulator placement vitamin D (ERGOCALCIFEROL) 76923 UNIT capsule Take 1 capsule (50,000 Units) [...] advanced practice provider their discharge plan. My ann history or physical exam findings from the [...] Deep Brain Stimulator Postop Instructions Dr. Rowland [phone] 1. Ok to shower after 3 days. [...] ?? You have been given a patient community recreation programmer that can check that the stimulator [...] Take 1 capsule 4 capsule 2 08/2602/12/2015 60540 UNIT (50,000 Units) by capsuleIndications: Vitamin mouth every 7 D deficiency disease days documented as of this encounter H&P Notes Corine Alexander - 09/11/2014 7:49 AM CDT The purpose of this note is to make the H&P performed in the clinic within the last 30 days available in the hospital surgical encounter. Source Note - Lurdes Thomas MD - 08/25/2014 12:38 PM CDT [address] [address] Dept: [phone] PRE-OP EVALUATION: Today's date: 08/25/2014 Andrew Pang (: 1955) presents for pre-operative evaluation assessment as requested by . He requires evaluation and anesthesia risk assessment prior to undergoing surgery/procedurefor treatment of Parkinson's . Proposed procedure: Deep brain stimulator implant Date of Surgery/ Procedure: 09/09& Time of Surgery/ Procedure: 05 Hospital/Surgical Facility: [facility] Primary Physician: Lurdes Thomas Type of [...] cardiovascular risks for perioperative complications such as (DC, PE, VFib and 3?? AV Block): No [...] evaluation report is provided to requesting physician. [facility] Preop Guidelines documented in this encounter Nursing [...] bilateral lead extensions SURGEON: Gonzalez Rowland MD Patient Services Technician: Arline Hutson NP PROCEDURE: The patient was [...] Provider: Pavel Miner) Routine, 2 g, Intravenous, PRE-OP/PRE-LA OCEDURE, Starting on Mon09/16/14 at 0638, For [...] Post-procedure documented in this encounter Care Teams Filler Room Attendant Relationship Specialty Start Date End Date Lurdes Thomas MD PCP - General Internal Medicine 06/11/14 12/16/20 documented as of this encounter
--- OUTSIDE RECORDS SUMMARY | 2021-12-28 18:03 | XMS_ITS | Encounter Summary ---
:1955 Author Organization [facility] Address [address] [facility] [place] [address] Care Team Providers Name Role Phone Lurdes Thomas MD Primary Care Provider [phone] Reason for Visit Auth/Cert - Closed Specialty Diagnoses / Procedures Referred By Contact Refer red To Contact Surgery Diagnoses PARKINSONS DISEASE Sh Periop Services Procedures IMPLANT PULSE GENERATOR SUBCUTANEOUS [address] [place] [address] Phone: Referral ID Status Reason Start Date Expiration Date Visits Requ ested Visits Authorized [id number] Closed 1 1 Encounter Details Date Type Department Care Team Description 09/16/2014 Anesthesia Event [facility] Jacquie Coughlin ANESTHESIOLOGY [address] [place] [id number] Simone PeriOP Ser Rogelio Gee MD [facility] ANESTHESIOLOGISTS [address] [place] [id number] [address], [address] [place] [...] EXTENSION AND RIGHT INFRACLAVICULAR PULSE GENERATOR PLACEMENT ([place]) Anesthesia type: General, ETT Post Op Diagnosis: [...] Arline Hutson APRN CNP vitamin D (ERGOCALCIFEROL) 37135 UNIT capsule Take 1 capsule (50,000 Units) [...] 1900 04/12/10 Lurdes Thomas MD No current [facility]-ordered facility-administered medications on file. No [...] results for input(s): INR in the last 14242 hours. Invalid input(s): APTT RECENT LABS: ECG: [...] benefits and alternatives discussed with: patient or banking representative. . History & Physical Review History [...] Intra-op documented in this encounter Care Teams Laundry Bag Punch Operator Relationship Specialty Start Date End Date Lurdes Thomas MD PCP - General Internal Medicine 06/11/14 12/16/20 documented as of this encounter
--- OUTSIDE RECORDS SUMMARY | 2021-12-28 18:03 | XMS_ITS | Encounter Summary ---
:1955 Author Organization [facility] Address [address] [place] [address] Care Team Providers Name Role Phone Lurdes Thomas MD Primary Care Provider [phone] Reason for Visit (Routine) - Closed Specialty Diagnoses / Procedures Referred By Contact Refer red To Contact Radiology / Radiology. Diagnoses R#NA, Written Order, SB Doris, Not a read and call. Sh Ct Scan Procedures CT LUMBAR SPINE WO [address] [place] [address] Phone: Referral ID Status Reason Start Date Expiration Date Visits Requ ested Visits Authorized [id number] Closed 08/31/2015 08/30/2016 1 1 Encounter Details Date Type Department Care Team Description 08/31/[address] [facility] [place], So re low back pain [facility] Esther Amaro MD [address] [place] [address] [employer] [address] [place] [id number] Social History Tobacco Use Types Packs/Day Years [...] Lumbago documented in this encounter Care Teams Caving Guide Relationship Specialty Start Date End Date Lurdes Thomas MD PCP - General Internal Medicine 06/11/14 12/16/20 documented as of this encounter
--- OUTSIDE RECORDS SUMMARY | 2021-12-28 18:03 | XMS_ITS | Encounter Summary ---
:1955 Author Organization [facility] Address [address] [place] [address]. [place] [address] Care Team Providers Name Role Phone Lurdes Thomas MD Primary Care Provider Reason for Visit Reason Onset Date Comments Outreach 05/30/2015 [facility] call not require d FIT ordered,[facility] Encounter Details Date Type Department Care Team Description 05/30/2015 Telephone [facility] Lurdes Thomas h ([facility] call not [facility] Laughlin MD required FIT MANAGEMENT DEPT [facility] ordered,cnt) [address] [place] [address] [place] [address] [address] [phone] [place], [place] [address] (Wo rk) Social History Tobacco Use [...] on filedocumented in this encounter Care Teams Natural Gas Engineer Relationship Specialty Start Date End Date Lurdes Thomas MD PCP - General Internal Medicine 06/11/14 12/16/20 documented as of this encounter
--- OUTSIDE RECORDS SUMMARY | 2021-12-28 18:03 | XMS_ITS | Encounter Summary ---
:1955 Author Organization [facility] Address [address] [place] [address]. [place] [address] Care Team Providers Name Role Phone Lurdes Thomas MD Primary Care Provider Reason for Visit Reason Onset Date Comments Refill Request 11/17/2014 PRAVASTATIN 80MG Encounter Details Date Type Department Care Team Description 11/17/2014 Refill [facility] Lurdes Rojas Refill Request [address] [facility] MD [place] (PRAVASTATIN 80MG) [place] [address] [facility] [phone] [place] [phone] (Wo rk) Social History Tobacco Use [...] # refills: 0 Last Office Visit with [facility] primary care provider: 08/25/2014 CHOL 178 09/20/2012 HDL 66 09/20/2012 LDL 95 09/20/2012 TRIG 83 09/20/2012 CHOLHDLRATIO 2.7 09/20/2012 documented in this encounter Plan of Treatment Not on filedocumented as of this encounter Visit Diagnoses Diagnosis Hyperlipidemia LDL goal < 130 - Primary Other and unspecified hyperlipidemia documented in this encounter Care Teams Motion Picture Projectionist Apprentice Relationship Specialty Start Date End Date Lurdes Thomas MD PCP - General Internal Medicine 06/11/14 12/16/20 documented as of this encounter
--- OUTSIDE RECORDS SUMMARY | 2021-12-28 18:03 | XMS_ITS | Clinical Summary ---
:1955 Author Organization [facility] Address [address] [facility] [place] [address] Care Team Providers Name Role Phone Samantha Stauffer MD Primary Care Provider [phone] Allergies No known active allergies Medications Medication Sig Dispensed Refills Start Date End Date Status carbidopa-levodopa Take 1 tablet by 0 04/12/2010 Active (SINEMET CR) 50-200 MG mouth 4 times per tabletIndications: daily Takes at Parkinson disease (H) 0600 1000 1430 1900 citalopram (CELEXA) 10 MG Take 10 mg by 0 Active tabletIndications: mouth daily. Parkinson disease (H) carbidopa-levodopa Take 1 tablet by 0 Active (SINEMET) 25-100 MG per mouth 3 times tabletIndications: daily as needed Parkinson disease (H) amantadine (SYMMETREL) Take 100 mg by 0 Active 100 MG capsule mouth 2 times daily omeprazole 20 MG tablet Take 20 mg by 30 tablet 1 06/11/2014 Active mouth daily as needed Take 30-60 minutes before a meal. hydrochlorothiazide Take 1 tablet 90 tablet 3 08/25/2014 Active (HYDRODIURIL) 25 MG (25 mg) by mouth tabletIndications: Leg daily swelling sildenafil (VIAGRA) 50 MG Take 1 tablet 24 tablet 3 02/13/2015 Active tabletIndications: (50 mg) by mouth Erectile dysfunction daily as needed for erectile dysfunction pravastatin (PRAVACHOL) Take 1 tablet 90 tablet 1 10/23/2015 Active 80 MG tabletIndications: (80 mg) by mouth Hyperlipidemia with daily target LDL less than 130 Active Problems Problem Noted Date S/P deep brain stimulator placement 09/09/2014 LATISHA (obstructive sleep apnea) 09/08/2014 Overview: bipap 04/28 GERD (gastroesophageal reflux disease) 06/11/2014 Prediabetes 09/20/2012 DDD (degenerative disc disease), cervical 10/25/2011 Restless leg syndrome 10/15/2010 Parkinson disease Hyperlipidemia with target LDL less than 130 Overview: Diagnosis updated by automated process. Provider to review and confirm. Immunizations Name Administration Dates Next Due COVID-19,PF,Pfizer (12+ Yrs) 08/29/2020, 08/08/2020 TDAP Vaccine (Adacel) 01/10/2006 Family History Medical History Relation Comments Lipids Father 1 Cardiovascular Father 2 [place], s/p CABG in mid- late 60's Diabetes Father 2 Neurologic Disorder Father 2 Parkinson's Cardiovascular Mother CVA x4 and [place], s/p C ABG in mid-late 60's Relation Status Comments Father 1 Father 2 Mother Social History Tobacco Use Types Packs/Day Years [...] Date Recorded Male 08/05/2020 2:57 PM CDT Last Filed Vital Signs Vital Sign Reading Time Taken Comments Blood Pressure 100/62 02/12/2015 9:50 AM CDT Pulse 74 02/12/2015 9:50 AM CDT Temperature 36.3 ??C (97.4 ??F) 02/12/2015 9:50 AM CDT Respiratory Rate 12 09/16/2014 10:30 AM CDT Oxygen Saturation 93% 09/16/2014 10:30 AM CDT Inhaled Oxygen Concentration - - Weight 92.7 kg (204 lb 6.4 oz) 02/12/2015 9:50 AM CDT Height 188 cm (6' 2) 02/12/2015 9:50 AM CDT Body Mass Index 26.24 02/12/2015 9:50 AM CDT Plan of Treatment Health Maintenance Due Date Last Done Comments ADVANCE CARE PLANNING 1955 ANNUAL REVIEW OF HM ORDERS 1955 CT COLONOGRAPHY 1955 FIT-DNA (Cologuard) 1955 FIT 1955 FLEX SIG 1955 COLONOSCOPY 1966 COLORECTAL CANCER SCREENING 1966 HIV SCREENING 1971 HEPATITIS C SCREENING 1974 ZOSTER IMMUNIZATION (1 of 2006 2) LIPID 11/26/2019 11/25/2014, 09/20/2012, 07/27/2011, Additional history exists COVID-19 Vaccine (3 - 01/29/2021 08/29/2020, 08/08/2020 Booster for Pfizer series) AORTIC ANEURYSM SCREENING 2021 (SYSTEM ASSIGNED) FALL RISK ASSESSMENT 2021 MEDICARE ANNUAL WELLNESS 2021 10/15/2010 VISIT Pneumococcal Vaccine: 65+ 2021 Years (1 - PCV) PHQ-2 (once per calendar 05/22/2021 year) INFLUENZA VACCINE (#1) 2022 05/05/2009, 05/05/2009, 05/05/2009 DTAP/TDAP/TD IMMUNIZATION 06/02/2027 06/02/2017, 06/02/2017 , (4 - Td or Tdap) 05/22/2007, Additional history exists HEPATITIS B IMMUNIZATION Aged Out No long er eligible based on patient 's age to complete this topic IPV IMMUNIZATION Aged Out No longer eligi ble based on patient 's age to complete this topic MENINGITIS IMMUNIZATION Aged Out No longe r eligible based on patient 's age to complete this topic Medical Devices Implanted Type Area Radiology Receptionist Device Shelf Model / Identifier Expiration Date Ser ial / Lot Fiducials Skull IMAGE GUIDED 06/12/2017 [id number] / Implanted: Qty: 5 on 09/09/2014 by Demetrio gale, Gonzalez Snider MD at [facility] NEUROLO / [id number] Description: 5 fiducials used - opened 1 box for charging (contains 6 in box). Done in the clinic - reported to us by Alliso n Gianna Neurostim[employer] [id number] Right: Chest [employer]NE[employer]O 12/17/2015 [id number] / Implanted: Qty: 1 on 09/16/2014 by Demetrio gale, Gonzalez Snider MD at [facility] [id number] / Insurance Payer Benefit Plan / Subscriber ID Effective Dates Phone Addre ss Type Group BCBS BCBS OUT OF [id number] 2014-Present [phone] [address] [address] [place] [address] [address] (Home) [employer] [place] [phone] [place] 4 [phone] (Work) Advance Directives For more information, please contact: [phone] Latest Code Status on File Code Status Date Activated Date Inactivated Comments Full Code 09/10/2014 9:18 AM Care Teams Manager Area Relationship Specialty Start Date End Date Samantha Stauffer MD PCP - General Family Medicine 12/17/20 [facility] [address] [place] [address]
--- OUTSIDE RECORDS SUMMARY | 2021-12-28 18:03 | XMS_ITS | Encounter Summary ---
:1955 Author Organization [facility] Address [address] [facility] [place] [address] Care Team Providers Name Role Phone Lurdes Thomas MD Primary Care Provider [phone] Encounter Details Date Type Department Care Team Description 09/18/2014 Documentation Only [facility] Gonzalez Rowland [facility] MD See Snider XX RESIGNED XX [address] [facility] out [address] [facility] [address] [place] [address] [place] [address] [phone] Social History Tobacco Use Types Packs/Day Years [...] is because it would provide him with [id number] control of his motor symptoms, which would [...] on filedocumented in this encounter Care Teams Machine Technician Relationship Specialty Start Date End Date Lurdes Thomas MD PCP - General Internal Medicine 06/11/14 12/16/20 documented as of this encounter
--- OUTSIDE RECORDS SUMMARY | 2021-12-28 18:03 | XMS_ITS | Encounter Summary ---
:1955 Author Organization [facility] Address [address] [place] [address] Care Team Providers Name Role Phone Unavailable Primary Care Provider Unavailable Encounter Details Date Type Department Care Team Description 07/22/2008 PN Conversion Only AIR[facility] CONVERSION [address] [place] [address] Social History Tobacco Use Types Packs/Day Years Used Date Smoking Tobacco: Never Assessed Sex Assigned at Date Recorded Not on file documented as of this encounter Plan of Treatment Not on filedocumented as of this encounter Visit Diagnoses Not on filedocumented in this encounter
--- OUTSIDE RECORDS SUMMARY | 2021-12-28 18:03 | XMS_ITS | Encounter Summary ---
:1955 Author Organization [facility] Address [address] [place] [address]. [place] [address] Care Team Providers Name Role Phone Lurdes Thomas MD Primary Care Provider Reason for Visit Reason Onset Date Comments Panel Management 11/19/2014 Colonoscopy Encounter Details Date Type Department Care Team Description 11/19/2014 Telephone [facility] Lurdes Oh Panel Management [address] [facility] MD [place] (Colonoscopy) [place] [address] [facility] [phone] [address] (Wo rk) Social History Tobacco [...] Review Date of last visit with a [facility] provider: Dr Thomas on 09/22/14. Date of next visit with a [facility] provider: None. Problem List Patient Active Problem [...] visit for Colonoscopy/FIT. Type of outreach: Sent Skoovy message. Questions for provider review: None Please indicate office visit, lab, MTM, or nurse appt if needed. Indicate fasting or not fasting. Tamy Leahy LPN Chart routed to Care Team . documented in this encounter Plan of Treatment Not on filedocumented as of this encounter Visit Diagnoses Not on filedocumented in this encounter Care Teams Foreign Exchange Services Manager Relationship Specialty Start Date End Date Lurdes Thomas MD PCP - General Internal Medicine 06/11/14 12/16/20 documented as of this encounter
--- OUTSIDE RECORDS SUMMARY | 2021-12-28 18:04 | XMS_ITS | Encounter Summary ---
:1955 Author Organization [place] Address [address] [facility] [place] [address] Care Team Providers Name Role Phone Lurdes Thomas MD Primary Care Provider [phone] Reason for Visit (Routine) - Closed Specialty Diagnoses / Procedures Referred By Contact Refer red To Contact Radiology / Radiology. Procedures Nuclear Medicine [place] SCAN[address] [place] [address] Phone: Fax: Referral ID Status Reason Start Date Expiration Date Visits Requ ested Visits Authorized [id number] Closed 06/20/2014 12/17/2014 1 1 Encounter Details Date Type Department Care Team Description 06/25/2014 Hospital Encounter [facility] Lurdes Thomas MD [address] [facility] [address] [address] [facility] [phone] [place], [place] [address] (Wo rk) Social History [...] Take 1 capsule 8 capsule 0 06/1208/01/2014 12930 UNIT (50,000 Units) by capsuleIndications: mouth every [...] (shortness of Resu lts for this LEXISCAN PULMONOLOGIST/INTENSIVIST breath) procedure are i n the results section. documented in this encounter Visit Diagnoses Not on filedocumented in this encounter Care Teams Smoking Pipe Coater Relationship Specialty Start Date End Date Lurdes Thomas MD PCP - General Internal Medicine 06/11/14 12/16/20 documented as of this encounter
--- OUTSIDE RECORDS SUMMARY | 2021-12-28 18:04 | XMS_ITS | Encounter Summary ---
:1955 Author Organization [place] Address [address] [place] [address]. [place] [address] Care Team Providers Name Role Phone Lurdes Thomas MD Primary Care Provider [phone] Reason for Visit (Routine) - Closed Specialty Diagnoses / Procedures Referred By Contact Refer red To Contact Cardiology Procedures Zzrh Electrocardiology EKG STRESS NM LEXISCAN [address] [place], [place] [address] Phone: Referral ID Status Reason Start Date Expiration Date Visits Requ ested Visits Authorized [id number] Closed 06/19/2014 06/19/2015 1 1 Encounter Details Date Type Department Care Team Description 06/25/2014 Hospital Encounter [facility] Lurdes Thomas SOB (shortness of Electrocardiolgy MD [place] breath) [address] [place] [facility] [place] [address] [place] [address] [place] [address] Social History Tobacco Use Types [...] Take 1 capsule 8 capsule 0 06/1208/01/2014 62657 UNIT (50,000 Units) by capsuleIndications: mouth every [...] adverse reactions to catarino injection. Rachel Segura ST FIRE SPECIALIST SUPERVISOR documented in this encounter Plan of Treatment Not on filedocumented as of this encounter Procedures Procedure Name Priority Date/Time Associated Diagnosis Comme nts NM MPI WITH Routine 06/25/2014 1:06 PM SOB (shortness of Resu lts for this LEXISCAN FOREST FIRE SPECIALIST SUPERVISOR breath) procedure are i n the results section. documented in this encounter Results NM Lexiscan stress test (06/25/2014 1:06 PM FOREST FIRE SPECIALIST SUPERVISOR) Anatomical Region Laterality Modality Chest Nuclear Medicine Specimen (Source) Anatomical Location Collection Method / Collectio n Time Received Time / Laterality Volume Narrative 06/26/2014 10:06 AM FOREST FIRE SPECIALIST SUPERVISOR GATED MYOCARDIAL PERFUSION SCINTIGRAPHY WITH INTRAVENOUS PHARMACOLOGIC [...] (LEXISCAN) 0.4 MG/5ML Given 06/25/2014 11:30 AM FOREST FIRE SPECIALIST SUPERVISOR injection Starting on Mon06/25/14 at 1148, For 1 dose, RACHEL SEGURA: cabinet override documented in this encounter Care Teams Ssis Architect Relationship Specialty Start Date End Date Lurdes Thomas MD PCP - General Internal Medicine 06/11/14 12/16/20 documented as of this encounter
--- OUTSIDE RECORDS SUMMARY | 2021-12-28 18:04 | XMS_ITS | Encounter Summary ---
:1955 Author Organization [place] Address [address] [facility] [place] [address] Care Team Providers Name Role Phone Lurdes Thomas MD Primary Care Provider [phone] Encounter Details Date Type Department Care Team Description 09/03/[address] [facility] FELICE Hernández KATHY [facility], Non-Provider MD-ORDER -09/03/2014 Health Info [facility] [address] [facility] [place] [address] Social History Tobacco Use Types [...] on filedocumented in this encounter Care Teams Pharmacist In Charge Owner Relationship Specialty Start Date End Date Lurdes Thomas MD PCP - General Internal Medicine 06/11/14 12/16/20 documented as of this encounter
--- OUTSIDE RECORDS SUMMARY | 2021-12-28 18:04 | XMS_ITS | Encounter Summary ---
:1955 Author Organization [place] Address [address] [place] [address]. [place] [address] Care Team Providers Name Role Phone Lurdes Thomas MD Primary Care Provider Reason for Visit Reason Onset Date Comments Refill Request 08/20/2014 PRAVASTATIN 80MG Encounter Details Date Type Department Care Team Description 08/20/2014 Refill [facility] Eag Lurdes Rojas Refill Request 14[address] [facility] MD Truman (PRAVASTATIN 80MG) [place] [address] [facility] [phone] [place] [phone] 25 (Wo rk) Social History Tobacco Use [...] through pharmacy: Date: NA Pharmacy Comments: SAMINA Hayden RT(R) documented in this encounter Plan of Treatment Not on filedocumented as of this encounter Visit Diagnoses Diagnosis Hyperlipidemia LDL goal < 130 - Primary Other and unspecified hyperlipidemia documented in this encounter Care Teams Sliver Machine Operator Relationship Specialty Start Date End Date Lurdes Thomas MD PCP - General Internal Medicine 06/11/14 12/16/20 documented as of this encounter
--- OUTSIDE RECORDS SUMMARY | 2021-12-28 18:04 | XMS_ITS | Encounter Summary ---
:1955 Author Organization [place] Address [address] [place] [address] Care Team Providers Name Role Phone Lurdes Thomas MD Primary Care Provider [phone] Reason for Visit (Routine) - Closed Specialty Diagnoses / Procedures Referred By Contact Refer red To Contact Radiology / Radiology. Diagnoses R#NA, BC, Epic Order Sh Ct Scan Procedures CT [place] [address] [place] [address] Phone: Referral ID Status Reason Start Date Expiration Date Visits Requ ested Visits Authorized [id number] Closed 08/11/2014 08/11/2015 1 1 Encounter Details Date Type Department Care Team Description 09/08/2014 Hospital Encounter [facility] Rachel Cuadra rkinson's disease [facility] Imaging [facility]m, EX CHEF VP ACCOUNT DIRECTOR (H) [address] [place] [address] ORTHOPEDICS [phone] [place] [address] Social History Tobacco Use Types Packs/Day Years [...] Take 1 capsule 4 capsule 2 08/2602/12/2015 30670 UNIT (50,000 Units) by capsuleIndications: Vitamin mouth [...] No obvious abnormality. FAMILIA GUILLERMO MD Rachel Cuadar APRN VP ACCOUNT DIRECTOR IMG CT ORDERABLES documented in this encounter Visit Diagnoses Diagnosis Parkinson's disease (H) Paralysis agitans documented in this encounter Care Teams Motion Picture Photographer Relationship Specialty Start Date End Date Lurdes Thomas MD PCP - General Internal Medicine 06/11/14 12/16/20 documented as of this encounter
--- OUTSIDE RECORDS SUMMARY | 2021-12-28 18:04 | XMS_ITS | Encounter Summary ---
:1955 Author Organization [place] Address [address] [place] [address]. [place] [address] Care Team Providers Name Role Phone Lurdes Thomas MD Primary Care Provider [phone] Reason for Visit Reason Onset Date Comments Other 07/21/2014 Pt. needs letter Encounter Details Date Type Department Care Team Description 07/21/2014 Telephone [facility] Gonzalez Rowland Other (Pt . needs Neurosurgery Clinic MD Tylor letter) See XX RESIGNED XX [address] [place] [address] [place] [address] [place] [address] [place] [address] [phone] Social History Tobacco Use Types Packs/Day Years [...] To discuss a letter he needs? Thanks OGRAPHY TEACHER documented in this encounter Plan of Treatment Not on filedocumented as of this encounter Visit Diagnoses Not on filedocumented in this encounter Care Teams Trapeze Artist Relationship Specialty Start Date End Date Lurdes Thomas MD PCP - General Internal Medicine 06/11/14 12/16/20 documented as of this encounter
--- OUTSIDE RECORDS SUMMARY | 2021-12-28 18:04 | XMS_ITS | Encounter Summary ---
:1955 Author Organization [place] Address [address] [place] [address] Care Team Providers Name Role Phone Lurdes Thomas MD Primary Care Provider Encounter Details Date Type Department Care Team Description 06/18/2014 Medical Correspondence [facility] Scan, GOALS AND CONCERNS [facility], Non-Provider Health Info Mgmt [facility] [address] [facility] [place] [address] Social History Tobacco Use Types [...] on filedocumented in this encounter Care Teams Family Law Attorney Relationship Specialty Start Date End Date Lurdes Thomas MD PCP - General Internal Medicine 06/11/14 12/16/20 documented as of this encounter
--- OUTSIDE RECORDS SUMMARY | 2021-12-28 18:04 | XMS_ITS | Encounter Summary ---
:1955 Author Organization [place] Address [address] [facility] [place] [address] Care Team Providers Name Role Phone Lurdes Thomas MD Primary Care Provider [phone] Reason for Visit Auth/Cert - Closed Specialty Diagnoses / Procedures Referred By Contact Refer red To Contact Surgery Diagnoses PARKINSONS DISEASE Sh Periop Services Procedures OPTICAL TRACKING SYSTEM INSERTION DEEP BRAIN STIMULATION BILATERAL [address], [address] [place] [address] Phone: Referral ID Status Reason Start Date Expiration Date Visits Requ ested Visits Authorized [id number] Closed 1 1 Encounter Details Date Type Department Care Team Description 09/09[facility]2014 [facility] Simone Snider MD Care XX RESIGNED XX [address] [place] [address] [place] [id number] Social History Tobacco Use Types Packs/Day Years [...] CNP - 09/10/2014 9:19 AM CDT [facility] Discharge Summary Neurosurgery Date of Admission: 09/09/2014 [...] up with further consultation recommendations. Rachel Cuadra [facility]RE [facility] [address] [place] [phone] Pager [phone] Significant Results and Procedures NONE Pending Results [...] other recreational vehicles Call my office at [phone] for increasing redness, swelling or pus draining [...] deep brain stimulator placement vitamin D (ERGOCALCIFEROL) 36181 UNIT capsule Take 1 capsule (50,000 Units) [...] encounter Discharge Instructions Discharge Rachel Muñoz APRN FOREST FIRE WARDEN - 09/10/2014 9:19 AM CDT Discharge instructions: No lifting of more than 10 pounds until follow up visit as scheduled Ok to walk as tolerated, avoid bedrest. Ok to use ice to areas. No contact sports until after follow up visit No high impact activities such as; running/jogging, Biking, snowmobile or 4 miller riding or any other recreational vehicles Call my office at [phone] for increasing redness, swelling or pus draining [...] Take 1 capsule 4 capsule 2 08/2602/12/2015 31297 UNIT (50,000 Units) by capsuleIndications: Vitamin mouth [...] Thomas MD - 08/25/2014 12:38 PM CDT [address] [address] Dept: [phone] PRE-OP EVALUATION: Today's date: 08/25/2014 Andrew Poly (: 1955) presents for pre-operative evaluation assessment as requested by . He requires evaluation and anesthesia risk assessment prior to undergoing surgery/procedurefor treatment of Parkinson's . Proposed procedure: Deep brain stimulator implant Date of Surgery/ Procedure: 09/09& Time of Surgery/ Procedure: 529 Hospital/Surgical Facility: [facility] Primary Physician: [...] cardiovascular risks for perioperative complications such as (GA, PE, VFib and 3?? AV Block): No [...] evaluation report is provided to requesting physician. [place] Preop Guidelines documented in this encounter Nursing [...] care (reference Craniotomy/Craniectomy/Cranioplasty (Adult) CPG). Outcome: Improving [phone] Neuro: slight tremors hands, would freeze at times with walking/transfer otherwise intact as pre hospitalization per pt. CV: Nicardipine weaned to off keeping SB/P 90-140. GI Eating well. U/O voiding. Discharge instructions reviewed and given, see paper sheets. Discharged with to [facility] with w/cand volunteer Plan of Care - [...] neuro checks to resume. Op Note - CeciGonzalez hook - 09/09/2014 10:52 AM CDT PREOPERATIVE DIAGNOSIS: Parkinson's Disease POSTOPERATIVE DIAGNOSIS: same OPERATIVE PROCEDURE: bilateral STN deep brain stimulator placement SURGEON: Gonzalez Rowland MD Vice President Payment: Arline Hutson NP 59 yo man with [...] eda holes were made with the 14mm wardrobe specialist drill over the markedbony entry points. The [...] microelectrode were inserted at 15mm above target, [id number] and impedences confirmed <400kohms. I began advancing [...] effects. The decisionwas made to insert a Pet Chance Televisiontronic 3389 macroelectrode with the distal 0 contact [...] The decision was made to insert a [employer] Televisiontronic 3389 macroelectrode with the distal 0 contact [...] CDT AM CDT Gonzalez Rowland MD [facility] POCT Performing Organization Address City/State/ZIP Code Phon [...] Status post bilateral deep brain stimulator leads. LOGNA GUILLERMO MD Narrative 09/09/2014 11:05 AM CDT [...] stimulator leads. LOGAN GUILLERMO MD Arline Peñaloza [facility] FOREST FIRE WARDEN IMG CT ORDERABLES Hemoglobin (09/09/2014 6:10 AM CDT) P athologist Signature Hemoglobin 14.8 13.3 - 17.7 [place] g/dL [facility] Specimen Anatomical Collection Method Collection Time Receive d Time (Source) Location / / Volume Laterality Blood specimen 09/09/2014 6:10 AM 015 6:13 (specimen) CDT AM CDT Jacquie Coughlin LAB - BLOOD ORDERABLES Performing Organization Address City/State/ZIP Code Phon e Number M [facility] [address], [place] [address] [facility] [address] [place] [address] Potassium (09/09/2014 6:10 AM CDT) athologist Signature Potassium 3.4 3.4 - 5.3 [place] mmol/L [facility] Specimen Anatomical Collection Method Collection Time Receive d Time (Source) Location / / Volume Laterality Blood specimen 09/09/2014 6:10 AM 015 6:13 (specimen) CDT AM CDT Jacquie Coughlin LAB - BLOOD ORDERABLES Performing Organization Address City/State/ZIP Code Phon e Number [facility] [address] [place] [address] [facility] [address] [place] [address] documented in this encounter Visit Diagnoses Diagnosis [...] Volume Adjustment - Provider: Millicent Enciso APRN [employer])1020 (New Bag - Provider: Millicent Enciso APRN [employer]ORTER)1059 (Anesthesia Volume Adjustment - Provider: Millicent Enciso APRN [employer]TER) at 75-100 mL/hr, Intravenous, CONTINUOUS , UNLESS [...] RN) 0.3-0.5 mg, Intravenous, EVERY 30 MIN NM N, Starting 09/09/14 at 1209, Until Mon09/10/14 [...] (New Bag - Provider: Millicent Enciso APRN [employer]TER - Comment: surgeon and MDA aware of infusion starting)0850 (Rate/Dose Change - Provider: Millicent Enciso APRN [employer])0853 (Rate/Dose Change - Provider: Millicent Enciso APRN [employer]TER) CONTINUOUS PRN, Starting on Mon09/09/14 at 0844, Anesthesia Intra-op 0900 (Rate/Dose Change - Provider: Millicent Enciso APRN [employer])0915 (Rate/Dose Change - Provider: Millicent Enciso APRN [employer] S[employer]TER)0930 (Rate/Dose Change - Provider: Millicent Enciso APRN [employer] SORTER)0945 (Rate/Dose Change - Provider: Millicent Enciso APRN [employer] SORTER) 1000 (Rate/Dose Scott ge - Provider: Millicent Enciso APRN [employer] SORTER)1018 (Rate/Dose Change - Provider: Millicent Enciso APRN [employer] H[employer] SORTER)1025 (Rate/Dose Change - Provider: Millicent Enciso APRN [employer] H[employer] SORTER)1030 (Rate/Dose Change - Provider: Millicent Enciso APRN [...] Rowland) PRN, Starting 09/09/14 at 0858, Intra-procedure emllrmmh-jmwzibmhsk-xkukfghqm-calcium (TISSEEL) topical solu tion (CANCELED) 0859 (Given - Provider: Gonzalez Rowland)0900 (Given - Provider: Gonzalez Rowland)0901 (Given - Provider: Gonzalez Rowland)0921 (Given - Provider: Gonzalez Rowland)0943 (Given - Provider: Gonzalez Rowland) PRN, Starting 09/09/14 at 0859, Intra-procedure documented in this encounter Care Teams Etl Bi Developer Relationship Specialty Start Date End Date Lurdes Thomas MD PCP - General Internal Medicine 06/11/14 12/16/20 documented as of this encounter
--- OUTSIDE RECORDS SUMMARY | 2021-12-28 18:04 | XMS_ITS | Encounter Summary ---
:1955 Author Organization [place] Address [address] [facility] [place] [place] [address] Care Team Providers Name Role Phone Lurdes Thomas MD Primary Care Provider [phone] Reason for Visit (Routine) - Closed Specialty Diagnoses / Procedures Referred By Contact Refer red To Contact Radiology / Radiology. Diagnoses R#NA, BC, Epic Order Sh Mri Procedures MR BRAIN WWO [address] [place] [address] Phone: Referral ID Status Reason Start Date Expiration Date Visits Requ ested Visits Authorized [id number] Closed 07/28/2014 07/28/2015 1 1 Encounter Details Date Type Department Care Team Description 08/26/2014 Hospital Encounter [facility] Rachel Cuadra rkinson's disease [facility] Imaging Lm, SADDLE MAKER SENIOR CLINICAL CONSULTANT (H) [address] [place] [address] ORTHOPEDICS [phone] [place], [place] [address] Social History Tobacco Use Types Packs/Day Years [...] Take 1 capsule 4 capsule 2 08/2602/12/2015 91773 UNIT (50,000 Units) by capsuleIndications: Vitamin mouth [...] planning purposes. COMPARISON: Diagnostic brain MRI from [facility] 05/26/2014. FINDINGS: The ventricles are normal in [...] planning purposes. COMPARISON: Diagnostic brain MRI from [facility] 05/26/2014. FINDINGS: The ventricles are normal in s ize. There is no midline shift. There are no extra-axial fluid co llections. There is no evidence for intracranial hemorrhage. IMPRESSION IMPRESSION: Treatment planning brain MRI images with no evidence for acute intracranial pathology. BETTY CLOUD MD Rachel Cuadra SADDLE MAKER SENIOR CLINICAL CONSULTANT IMG MRI ORDERABLES documented in this encounter [...] MRI. documented in this encounter Care Teams Charrer Relationship Specialty Start Date End Date Lurdes Thomas MD PCP - General Internal Medicine 06/11/14 12/16/20 documented as of this encounter
--- OUTSIDE RECORDS SUMMARY | 2021-12-28 18:04 | XMS_ITS | Encounter Summary ---
:1955 Author Organization [place] Address [address] [place] [address]. [place] [address] Care Team Providers Name Role Phone Lurdes Thomas MD Primary Care Provider [phone] Reason for Visit Reason Comments Pre-Op Exam Encounter Details Date Type Department Care Team Description 08/25/2014 Office Visit [facility] Lurdes Thomasop gen eral physical exam (Primary Dx); Uzair Laughlin MD Parkinson disease (H); [address] Bilateral leg edema; [place] [address] [place] Leg swelling; [phone] [address] [facility] Vitamin D deficiency disease [address] [place], [place] [address] Social History Tobacco Use [...] Thomas MD - 08/25/2014 12:38 PM CDT [address] [address] Dept: [phone] PRE-OP EVALUATION: Today's date: 08/25/2014 Andrew Pang (: 1955) presents for pre-operative evaluation assessment as requested by . He requires evaluation and anesthesia risk assessment prior to undergoing surgery/procedurefor treatment of Parkinson's . Proposed procedure: Deep brain stimulator implant Date of Surgery/ Procedure: 09/09& Time of Surgery/ Procedure: 529 Hospital/Surgical Facility: [facility] Primary Physician: Lurdes Thomas Type of [...] cardiovascular risks for perioperative complications such as (MS, PE, VFib and 3?? AV Block): No [...] 08/26/2014 4:45 PM CDT Addended by: LURDES THOMAS on: 08/26/2014 04:45 PM Modules accepted: Orders, [...] D 25 (L) 30 - 75 [facility] ug/L [facility] Comment: Season, race, dietary intake, and treatm ent affect the concentration of 62-fafnpib-Pfcgrrv D. Values may decrea se during winter [...] Organization Address City/State/ZIP Code Phon e Number [facility] [address] [place] [address] [facility] (ABNORMAL) Basic metabolic panel (08/25/2014 1:08 PM CDT) Analysis Performed At [facility] logist Time Signature Sodium 137 133 - 144 [place] mmol/L [facility] Potassium 3.5 3.4 - 5.3 [place] mmol/L [facility] Chloride 100 94 - 109 [place] mmol/L [facility] Carbon Dioxide 28 20 - 32 [place] mmol/L [facility] Anion Gap 9 3 - 14 [place] mmol/L [facility] Glucose 132 (H) 70 - 99 [place] mg/dL [facility] Comment: Effective 12/18/2013, the reference range for this assay has changed to reflect new instrumentation/methodology. Urea Nitrogen 18 7 - 30 mg/dL [facility] Comment: Effective 12/18/2013, the reference range for this assay has changed to reflect new instrumentation/methodology. Creatinine 0.77 0.66 - 1.25 [facility] mg/dL [facility] GFR Estimate >90 >60 mL/min/1.7m2 [facility] Non GFR Calc [facility] GFR Estimate If [place] >90 >60 mL/min/1.7m2 [facility] GFR Calc [facility] Calcium 9.3 8.5 - 10.1 mg/dL [facility] Comment: Effective 12/18/2013, the reference range for this assay has changed to reflect new instrumentation/methodology. Specimen Anatomical Collection Method Collection Time Receive d Time (Source) Location / / Volume Laterality Blood specimen 08/25/2014 1:08 PM 015 1:09 (specimen) CDT PM CDT Lurdes Thomas MD LAB - BLOOD ORDERABLES Performing Organization Address City/State/ZIP Code Phon e Number [facility] [address] [place] [address] documented in this encounter Visit Diagnoses Diagnosis Preop general physical exam - Primary Other specified pre-operative examinatio n Parkinson disease (H) Paralysis agitans Bilateral leg edema Edema Leg swelling Swelling of limb Vitamin D deficiency disease Unspecified vitamin D deficiency documented in this encounter Care Teams Sales Agent Financial Report Service Relationship Specialty Start Date End Date Lurdes Thomas MD PCP - General Internal Medicine 06/11/14 12/16/20 documented as of this encounter
--- OUTSIDE RECORDS SUMMARY | 2021-12-28 18:04 | XMS_ITS | Encounter Summary ---
:1955 Author Organization [place] Address [address] [place] [address] Care Team Providers Name Role Phone Lurdes Thomas MD Primary Care Provider [phone] Reason for Visit Auth/Cert - Closed Specialty Diagnoses / Procedures Referred By Contact Refer red To Contact Surgery Diagnoses PARKINSONS DISEASE Sh Periop Services Procedures IMPLANT PULSE GENERATOR SUBCUTANEOUS [address] [place] [address] Phone: Referral ID Status Reason Start Date Expiration Date Visits Requ ested Visits Authorized [id number] Closed 1 1 Encounter Details Date Type Department Care Team Description 09/16/2014 Hospital Encounter [facility] Gonzalez Rowland PreOP/Phase Liliam Snider II XX RESIGNED XX [address] [place] [place] [address] [place] [address] [phone] Social History Tobacco Use Types Packs/Day Years [...] this encounter Discharge Summaries Arline Hutson APRN WELDER APPRENTICE ARC - 09/16/2014 8:46 AM CDT Physician Discharge Summary Patient ID: Andrew Pang [id number] 59 year old 1955 Admit date: 09/16/2014 Discharge date and time: 09/16/2014 Admitting Physician: Gonzalez Rowland MD Discharge Physician: Arline Hutson [facility] Admission Diagnoses: PARKINSONS DISEASE Discharge [...] deep brain stimulator placement vitamin D (ERGOCALCIFEROL) 31995 UNIT capsule Take 1 capsule (50,000 Units) [...] Deep Brain Stimulator Postop Instructions Dr. Rowland [phone] 1. Ok to shower after 3 days. [...] have aDBS and the contact number for [employer] should be provided. ?? Some procedures require that the DBS system is turned off. [employer] can also instruct and guide regarding this. ?? You have been given a patient engineering programmer that can check that the stimulator [...] Take 1 capsule 4 capsule 2 08/2602/12/2015 37373 UNIT (50,000 Units) by capsuleIndications: Vitamin mouth [...] MD - 08/25/2014 12:38 PM CDT [address] [address] Dept: [phone] PRE-OP EVALUATION: Today's date: 08/25/2014 Andrew Pang (: 1955) presents for pre-operative evaluation assessment as requested by . He requires evaluation and anesthesia risk assessment prior to undergoing surgery/procedurefor treatment of Parkinson's . Proposed procedure: Deep brain stimulator implant Date of Surgery/ Procedure: 09/09& Time of Surgery/ Procedure: 529 Hospital/Surgical [facility]: [facility] Primary Physician: Lurdes Thomas Type of Anesthesia [...] cardiovascular risks for perioperative complications such as (VT, PE, VFib and 3?? AV Block): No [...] evaluation report is provided to requesting physician. [facility] Preop Guidelines documented in this encounter Nursing [...] bilateral lead extensions SURGEON: Gonzalez Rowland MD Mechanic Senior: Arline Hutson NP PROCEDURE: The patient was [...] Provider: Pavel Miner) Routine, 2 g, Intravenous, PRE-OP/PRE-MS OCEDURE, Starting on Mon09/16/14 at 0638, For [...] 4 mg, Intravenous, EVERY 30 MIN PRN, boie sea, vomiting, for 2 Minutes, Starting Mon09/16/14 [...] Post-procedure documented in this encounter Care Teams Manager Quantitative Relationship Specialty Start Date End Date Lurdes Thomas MD PCP - General Internal Medicine 06/11/14 12/16/20 documented as of this encounter
--- OUTSIDE RECORDS SUMMARY | 2021-12-28 18:04 | XMS_ITS | Encounter Summary ---
:1955 Author Organization [place] Address [address] [place] [address] Care Team Providers Name Role Phone Lurdes Thomas MD Primary Care Provider [phone] Encounter Details Date Type Department Care Team Description 09/11/2014 Telephone [facility] Nurse Eladia Muñoz, RN Advisors [address] [place] [address] Social History Tobacco Use Types Packs/Day [...] bandages are is very itchy. Will page youth liaison officer for [facility] page hoop machine operator for [facility] to have youth liaison officer Dr. Rowland call Natasha @ [phone]. Did not complete infection screen for ebola. [...] as expected or comes out ? NO college director (pump, infusion catheter) damaged or not functioning [...] least 15 seconds or use a hand appliance mechanic before and after touching the wound area. [...] on filedocumented in this encounter Care Teams Banking Center Manager Relationship Specialty Start Date End Date Lurdes Thomas MD PCP - General Internal Medicine 06/11/14 12/16/20 documented as of this encounter
--- OUTSIDE RECORDS SUMMARY | 2021-12-28 18:04 | XMS_ITS | Encounter Summary ---
:1955 Author Organization [place] Address [address] [place] [address]. [place] [address] Care Team Providers Name Role Phone Lurdes Thomas MD Primary Care Provider [phone] Reason for Visit Reason Onset Date [facility] F/U 09/11/2014 Parkinsons Disease, S/P Deep Brain Stimulator Placement, S/P Deep Brain Stimulato r Placement, 09/10/14, 0 Encounter Details Date Type Department Care Team Description 09/11/2014 Telephone [facility] F/U [address] [facility] MD [place] (Parkinsons Disease, [place] [address] [facility] S/P Deep Brain [phone] [place] Stimulator Placement, [address] [facility] S/P Deep B rain Stimulator Placement, [place], [place] [address] 09/10/14, 0 ) [phone] (Wo rk) Social History Tobacco Use Types [...] with information to call me back. Maggie underwater roboticist Nurse Telephone Encounter - Kiara Oviedo RN - 09/11/2014 12:52 PM CDT ED / Discharge Outreach Protocol Patient Contact Attempt # 1 Was call answered? No. Left message on voicemail with information to call me back. Telephone Encounter - Josy Garza - 09/11/2014 10:53 AM CDT Please contact patient for In-patient follow up. [phone] (home) None (work) Visit date: 09/10/14 Diagnosis listed:Parkinsons Disease, S/P Deep Brain Stimulator Placement, S/P Deep Brain Stimulator Placement Number of visits in past 12 months:0/1 documented in this encounter Plan of Treatment Not on filedocumented as of this encounter Visit Diagnoses Not on filedocumented in this encounter Care Teams Junior Recruiter Relationship Specialty Start Date End Date Lurdes Thomas MD PCP - General Internal Medicine 06/11/14 12/16/20 documented as of this encounter
--- OUTSIDE RECORDS SUMMARY | 2021-12-28 18:04 | XMS_ITS | Encounter Summary ---
:1955 Author Organization [place] Address [address] [facility] [place] [address] Care Team Providers Name Role Phone Lurdes Thomas MD Primary Care Provider [phone] Reason for Visit Auth/Cert - Closed Specialty Diagnoses / Procedures Referred By Contact Refer red To Contact Surgery Diagnoses PARKINSONS DISEASE Sh Periop Services Procedures OPTICAL TRACKING SYSTEM INSERTION DEEP BRAIN STIMULATION BILATERAL [address] [place] [address] Phone: Referral ID Status Reason Start Date Expiration Date Visits Requ ested Visits Authorized [id number] Closed 1 1 Encounter Details Date Type Department Care Team Description 09/09/2014 Anesthesia Event [facility] Andrew Narayan [place] PeriOP Ser shyann WHITTAKER [address] [facility] [address] ANESTHESIOLOGIS [place] [address] [phone] [place] [address] Anesthesia Record Procedure [...] benefits and alternatives discussed with: patient or medicare sales representative. . History & Physical Review History [...] Arline Hutson APRN CNP vitamin D (ERGOCALCIFEROL) 39135 UNIT capsule Take 1 capsule (50,000 Units) [...] results for input(s): INR in the last 32491 hours. Invalid input(s): APTT RECENT LABS: ECG: NSR ECHO: CXR: documented in this encounter Miscellaneous Notes Anesthesia Care Transfer Note - Millicent Enciso APRN MANUFACTURING OPERATOR - 09/09/2014 10:58 AM CDT Anesthesia Care [...] mg documented in this encounter Care Teams Import And Export Clerk Relationship Specialty Start Date End Date Lurdes Thomas MD PCP - General Internal Medicine 06/11/14 12/16/20 documented as of this encounter
--- OUTSIDE RECORDS SUMMARY | 2021-12-28 18:04 | XMS_ITS | Encounter Summary ---
:1955 Author Organization [place] Address [address] [facility] [place] [address] Care Team Providers Name Role Phone Lurdes Thomas MD Primary Care Provider [phone] Reason for Visit (Routine) - Closed Specialty Diagnoses / Procedures Referred By Contact Refer red To Contact Radiology / Radiology. Procedures Nuclear Medicine NM MPI WITH LEXISCAN [address] [place] [address] Phone: Fax: Referral ID Status Reason Start Date Expiration Date Visits Requ ested Visits Authorized [id number] Closed 06/20/2014 12/17/2014 1 1 Encounter Details Date Type Department Care Team Description 06/25/2014 Hospital Encounter [facility] Lurdes Thomas MD [address] [facility] [address] [address] [facility] [phone] [place], [place] [address] (Wo rk) Social History [...] Take 1 capsule 8 capsule 0 06/1208/01/2014 61215 UNIT (50,000 Units) by capsuleIndications: mouth every [...] (shortness of Resu lts for this LEXISCAN CHIEF PROGRAM OFFICER breath) procedure are i n the results section. documented in this encounter Visit Diagnoses Not on filedocumented in this encounter Administered Medications Inactive Administered Medications - up to 3 most recent administrations Medication Order MAR Action Action Date Dose Rate Site technetium Tc 99m tetrofosmin 2UD Given 06/25/2014 1:04 PM CHIEF PROGRAM OFFICER 3 0 mCi study (MYOVIEW) radioisotope injection 3-42 mCi 3-42 mCi, Intravenous, EVERY 2 HOURS, First dose on Mon06/25/14 at 1015, For 2 doses, Radioisotope, supplied by and administered by Nuclear Medicine. *HW* Given 06/25/2014 10:09 AM CHIEF PROGRAM OFFICER 10.4 mCi documented in this encounter Care Teams Structures Engineer Relationship Specialty Start Date End Date Lurdes Thomas MD PCP - General Internal Medicine 06/11/14 12/16/20 documented as of this encounter
--- OUTSIDE RECORDS SUMMARY | 2021-12-28 18:04 | XMS_ITS | Encounter Summary ---
:1955 Author Organization [place] Address [address] [facility] [place] [address] Care Team Providers Name Role Phone Lurdes Thomas MD Primary Care Provider [phone] Encounter Details Date Type Department Care Team Description 07/08/2014 Medical Correspondence [facility], Non-Provider NEUROLOG Y-ORDER-2/ Health Info [facility] 11/2014 Srvcs [address] [place] [address] Social History Tobacco Use Types [...] on filedocumented in this encounter Care Teams Freight Brakeman Relationship Specialty Start Date End Date Lurdes Thomas MD PCP - General Internal Medicine 06/11/14 12/16/20 documented as of this encounter
--- OUTSIDE RECORDS SUMMARY | 2021-12-28 18:04 | XMS_ITS | Encounter Summary ---
:1955 Author Organization [place] Address [address] [facility] [place] [address] Care Team Providers Name Role Phone Lurdes Thomas MD Primary Care Provider [phone] Encounter Details Date Type Department Care Team Description 07/18/2014 Hospital Encounter [facility] [address] [facility] [place] [address] Social History Tobacco Use Types Packs/Day Years [...] Take 1 capsule 8 capsule 0 06/1208/01/2014 02351 UNIT (50,000 Units) by capsuleIndications: mouth every [...] 11:24 AM R esults for this ABDOMEN ARC FURNACE OPERATOR procedure are i n the results section. documented in this encounter Results MR Digital Archive Non-[place] (05/26/2014 11:24 AM ARC FURNACE OPERATOR) Specimen (Source) Anatomical Location Collection Method / Collectio n Time Received Time / Laterality Volume Narrative RADIANT - 07/18/2014 11:24 AM ARC FURNACE OPERATOR <!--EPICS-->Digitized exam for comparison only; no results available<!--EPICE--> Radiology Non-Fv Credentialed Provider IMG EXTERNAL IM AGING ORDERABLES Performing Organization Address City/State/ZIP Code Phon e Number RADIANT documented in this encounter Visit Diagnoses Not on filedocumented in this encounter Care Teams Section Cutter Relationship Specialty Start Date End Date Lurdes Thomas MD PCP - General Internal Medicine 06/11/14 12/16/20 documented as of this encounter
--- OUTSIDE RECORDS SUMMARY | 2021-12-28 18:04 | XMS_ITS | Encounter Summary ---
:1955 Author Organization [place] Address [address] [place] [address]. [place] [address] Care Team Providers Name Role Phone Lurdes Thomas MD Primary Care Provider [phone] Reason for Visit Reason Comments Neurologic Problem DBS Consult Encounter Details Date Type Department Care Team Description 07/17/[address] [facility] [address] [facility] [address] [place], [place] [address] Parkinson's disease Neuro[facility] Rachel Cuadra APRN MANAGER TELECOM [facility] [address] [facility] [address] [place], [place] [address] (H) (Primary Dx) [address] [address] Social History Tobacco Use Types [...] Comments Blood Pressure 124/81 07/17/2014 9:15 AM FACILITY OPERATIONS MANAGER Pulse 94 07/17/2014 9:15 AM FACILITY OPERATIONS MANAGER Temperature 36.6 ??C (97.8 ??F) 07/17/2014 9:15 AM FACILITY OPERATIONS MANAGER Respiratory Rate - - Oxygen Saturation 94% 07/17/2014 9:15 AM FACILITY OPERATIONS MANAGER Inhaled Oxygen Concentration - - Weight 99.1 kg (218 lb 6.4 oz) 07/17/2014 9:15 AM FACILITY OPERATIONS MANAGER Height 185.4 cm (6' 1) 07/17/2014 9:15 AM FACILITY OPERATIONS MANAGER Body Mass Index 28.81 07/17/2014 9:15 AM FACILITY OPERATIONS MANAGER documented in this encounter Patient Instructions Patient [...] no sleep medications the night before surgery LITY OPERATIONS MANAGER documented in this encounter Progress Notes Rachel Cuadra APRN CNP - 07/17/2014 9:22 AM CST [facility] Neurosurgery Consult Note CC: Tremors and legs are lockingup Primary care Provider: Lurdes Thomas Referring provider: Dr. Maria Esther Phan HPI: Andrew Pang is a 59 year old male with a history of Parkinsons disease. He was diagnosed in August of 2007. He has been treating at the [facility] as well as Dr. Phna. Despite changes in medication therapy his symptoms [...] up at night. 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 He was [...] Outpatient Prescriptions Medication ??? vitamin D (ERGOCALCIFEROL) 04566 UNIT capsule ??? rotigotine (NEUPRO) 8 MG/24HR [...] Onset ??? Cardiovascular Mother CVA x4 and DE, s/p CABG in mid-late 60's ??? Cardiovascular Father [place], s/p CABG in mid-late 60's ??? Diabetes [...] of Parkinson's disease. [facility]. [facility] pt [...] agreement with recommendations and plan. Rachel Cuadra MANAGER [facility] [address] [place] [address] Pager [phone] Jordana Kline - 07/17/2014 9:18 AM CST [...] a DBS consult(Parkinsons) - referred by Dr. Phan([place]) 5 nursing intake time Jordana Kline CMA Discharge plan: Patient given After Visit Summary. He will be scheduled for Bilateral DBS 2 nursing discharge time Jordana Kline CMA signature LITY OPERATIONS MANAGER documented in this encounter Plan of [...] abnormality. FAMILIA GUILLERMO MD Rachel Cuadra APRN [facility] CT ORDERABLES MR Brain w/o & w [...] planning purposes. COMPARISON: Diagnostic brain MRI from [facility] 05/26/2014. FINDINGS: The ventricles are [...] planning purposes. COMPARISON: Diagnostic brain MRI from [facility] [place] [facility] 05/26/2014. FINDINGS: The ventricles are normal in s ize. There is no midline shift. There are no extra-axial fluid co llections. There is no evidence for intracranial hemorrhage. IMPRESSION IMPRESSION: Treatment planning brain MRI images with no evidence for acute intracranial pathology. BETTY CLOUD MD Rachel Cuadra APRN MANAGER TELECOM IMG MRI ORDERABLES documented in this encounter Visit Diagnoses Diagnosis Parkinson's disease (H) - Primary Paralysis agitans Parkinson's disease (H) Paralysis agitans Parkinson's disease (H) Paralysis agitans documented in this encounter Care Teams Maintenance Service Supervisor Relationship Specialty Start Date End Date Lurdes Thomas MD PCP - General Internal Medicine 06/11/14 12/16/20 documented as of this encounter
--- OUTSIDE RECORDS SUMMARY | 2021-12-28 18:04 | XMS_ITS | Encounter Summary ---
:1955 Author Organization [place] Address [address] [place] [address]. [place] [address] Care Team Providers Name Role Phone Lurdes Thomas MD Primary Care Provider [phone] Reason for Visit (Routine) - Closed Specialty Diagnoses / Procedures Referred By Contact Refer red To Contact Respiratory Therapy Diagnoses Hgb 15.4 drawn on 06/11/14 Rh Respiratory Ther Procedures PULMONARY FUNCTION TEST [address] [place] [address] Phone: Referral ID Status Reason Start Date Expiration Date Visits Requ ested Visits Authorized [id number] Closed 07/04/2014 07/04/2015 1 1 Encounter Details Date Type Department Care Team Description 07/08/2014 Hospital Encounter [facility] Lurdes Riosinson disease (H); Tere Laughlin MD SOB (shortness of breath) Therapy [facility] [address] [place], [place] [address] [address] [phone] [place] [address] Social History Tobacco Use Types [...] Take 1 capsule 8 capsule 0 06/1208/01/2014 32457 UNIT (50,000 Units) by capsuleIndications: mouth every [...] 06/11/14. July 08, 2014.12:39 PM Shemar Hoang MER CLIMBER documented in this encounter Procedure Notes Juice Chanel MD - 07/09/2014 1:16 PM CSTAssociated Order(s): PULMONARY FUNCTION TEST Please see medical chart for graphs and statistics related to this report. REFERRING PHYSICIAN: Deidre Pang LABORATORY MECHANICAL TECHNICIAN: Shemar Hoang DIAGNOSIS: SOB, Parkinson's disease HEIGHT: [...] CHANEL MD MT: Name: DEIDRE PANG Account: [id number] : 1955 Procedure Date: 07/08/2014 Document: [id number] cc: Lurdes Thomas MD documented in this encounter Plan of Treatment Pending Results Name Type Priority Associated Diagnoses Date/Ti me PULMONARY FUNCTION TEST PFT Routine Parkinso n disease (H) 07/08/2014 11:58 AM TRIMMER CLIMBER PROCEDURE SOB (shortness of breath) documented as of this encounter Procedures Procedure Name Priority Date/Time Associated Diagnosis Comme nts PFT GENERAL LAB 07/28/2014 1:58 PM Result s for this TESTING CDT procedure are i n the results section. PFT GENERAL LAB Routine 07/08/2014 11:58 AM Parkinson disease TESTING TRIMMER CLIMBER (H) SOB (shortness of breath) PULMONARY FUNCTION 07/08/2014 12:00 AM TEST - HIM SCAN TRIMMER CLIMBER documented in this encounter Results PULMONARY FUNCTION TEST (07/28/2014 1:58 PM CDT) Transcriptions Juice Chanel MD - 07/09/2014 1:16 PM CST Please see medical chart for graphs and statistics related to this report. REFERRING PHYSICIAN: Deidre Pang LABORATORY MECHANICAL TECHNICIAN: Shemar Hoang DIAGNOSIS: SOB, Parkinson's disease HEIGHT: [...] CHANEL MD MT: Name: DEIDRE PANG Account: [id number] : 1955 Procedure Date: 07/08/19 Document: [id number] cc: Lurdes Thomas MD Juice Chanel MD PFT ORDERABLES PULMONARY FUNCTION TEST - HIM SCAN (07/08/2014 12:00 AM TRIMMER CLIMBER) Specimen (Source) Anatomical Location Collection Method / Collectio n Time Received Time / Laterality Volume 07/08/2014 Narrative This result has an attachment that is no t available. Provider Scan PFT ORDERABLES documented in this encounter Visit Diagnoses Diagnosis Parkinson disease (H) Paralysis agitans SOB (shortness of breath) Shortness of breath documented in this encounter Care Teams Nuclear Power Plant Engineer Relationship Specialty Start Date End Date Lurdes Thomas MD PCP - General Internal Medicine 06/11/14 12/16/20 documented as of this encounter
--- OUTSIDE RECORDS SUMMARY | 2021-12-28 18:04 | XMS_ITS | Encounter Summary ---
:1955 Author Organization [place] Address [address] [place] [address]. [place] [address] Care Team Providers Name Role Phone Lurdes Thomas MD Primary Care Provider Reason for Visit Reason Comments Pre-Op Exam Encounter Details Date Type Department Care Team Description 08/11/2014 Office Visit [facility] Lurdes Thomasop gen eral physical exam (Primary Dx); Uzair Laughlin MD Parkinson disease (H); [address] Leg swelling; [place] [address] [place] Acute bronchitis [phone] [place], [place] [address] Social History Tobacco Use Types Packs/Day [...] Thomas MD - 08/11/2014 2:01 PM CDT [address] [address] Dept: [phone] PRE-OP EVALUATION: Today's date: 08/11/2014 Andrew Pang (: 1955) presents for pre-operative evaluation assessment as requested by . He requires evaluation and anesthesia risk assessment prior to undergoing surgery/procedurefor treatment of Parkinson's . Proposed procedure: Deep Brain Stimulator insertion Date of Surgery/ Procedure: 09/09 Time of Surgery/ Procedure: 529 Hospital/Surgical Facility: [facility] Primary Physician: Lurdes Thomas Type of [...] cardiovascular risks for perioperative complications such as (MD, PE, VFib and 3?? AV Block): No [...] evaluation report is provided to requesting physician. [place] Preop Guidelines documented in this encounter Nursing [...] bronchitis documented in this encounter Care Teams Senior Engineering Specialist Relationship Specialty Start Date End Date Lurdes Thomas MD PCP - General Internal Medicine 06/11/14 12/16/20 documented as of this encounter
--- OUTSIDE RECORDS SUMMARY | 2021-12-28 18:04 | XMS_ITS | Encounter Summary ---
:1955 Author Organization [place] Address [address] [place] [address]. [place] [address] Care Team Providers Name Role Phone Lurdes Thomas MD Primary Care Provider [phone] Reason for Visit (Routine) - Closed Specialty Diagnoses / Procedures Referred By Contact Refer red To Contact Cardiology Diagnoses 06/16-reminder ltr sent Rh Echo cc Procedures E[facility] COMPLETE [address] [facility] [address] [place], [place] [address] Phone: Fax: Referral ID Status Reason Start Date Expiration Date Visits Requ ested Visits Authorized [id number] Closed 06/17/2014 06/17/2015 1 1 Encounter Details Date Type Department Care Team Description 06/25/[address] [facility] breath[facility] Heart Care [facility] [address] [facility] [address] [place], [place] [address] [place], [place] [phone] [id number] Social History Tobacco Use Types Packs/Day Years [...] Take 1 capsule 8 capsule 0 06/1208/01/2014 78229 UNIT (50,000 Units) by capsuleIndications: mouth every [...] (shortness o f Results for this OPTISON GLASS NOVELTY MAKER breath) procedure are i n the results section. documented in this encounter Results ECHO COMPLETE WITH OPTISON (06/25/2014 2:19 PM GLASS NOVELTY MAKER) Anatomical Region Laterality Modality Echocardiography Specimen (Source) Anatomical Collection Method Collection Time Re ceived Time Location / / Volume Laterality 06/25/2014 1:34 PM GLASS NOVELTY MAKER Narrative 06/25/2014 4:24 PM GLASS NOVELTY MAKER Interpretation Summary Left ventricular systolic function is [...] to 2mL with Given 06/25/2014 2:12 PM GLASS NOVELTY MAKER 2 mLs saline (OPTISON) diluted injection 2 mL 2 mL, Intravenous, ONCE, On Mon06/25/14 at 1415, For 1 dose, 3mL Optison / 6mL Saline solution documented in this encounter Care Teams Facility Security Officer Relationship Specialty Start Date End Date Lurdes Thomas MD PCP - General Internal Medicine 06/11/14 12/16/20 documented as of this encounter
--- OUTSIDE RECORDS SUMMARY | 2021-12-28 18:04 | XMS_ITS | Encounter Summary ---
:1955 Author Organization [place] Address [address] [facility] [place] [address] Care Team Providers Name Role Phone Lurdes Thomas MD Primary Care Provider Reason for Visit Auth/Cert - Closed Specialty Diagnoses / Procedures Referred By Contact Refer red To Contact Surgery Diagnoses PARKINSONS DISEASE Sh Periop Services Procedures OPTICAL TRACKING SYSTEM INSERTION DEEP BRAIN STIMULATION BILATERAL [address] [place] [address] Phone: Referral ID Status Reason Start Date Expiration Date Visits Requ ested Visits Authorized [id number] Closed 1 1 Encounter Details Date Type Department Care Team Description 09/09/[address] [facility] Gonzalez Rowland BILATERAL SUBTHALMIC [place] PeriOP MD [place]yl[place] NUCLEUS DEEP BRAIN Services XX RESIGNED XX STIMULATOR [address] [place] [address] [place] [address] [phone] Surgery Details Date/Time Status Location OR Service [...] Neurosurgery 1 Arline Peñaloza APRN CNP Assisting Freedom Of Information Officer Shereen pretty 1 documented in this encounter [...] APRN CNP - 09/10/2014 9:19 AM CDT [facility] Discharge Summary Neurosurgery Date [...] up with further consultation recommendations. Rachel Cuadra [facility] [address] [place] [address] Pager [phone] Significant Results and Procedures NONE Pending Results Unresulted Labs Ordered in the Past 30 Days of this Admission No orders found for last 60 day(s). Code Status Full Code Primary Care Physician Lurdes Laughlin [facility] Physical Exam Temp: 97.9 ??F (36.6 ??C) [...] other recreational vehicles Call my office at [phone] for increasing redness, swelling or pus draining [...] deep brain stimulator placement vitamin D (ERGOCALCIFEROL) 55201 UNIT capsule Take 1 capsule (50,000 Units) [...] other recreational vehicles Call my office at [phone] for increasing redness, swelling or pus draining [...] Take 1 capsule 4 capsule 2 08/2602/12/2015 81412 UNIT (50,000 Units) by capsuleIndications: Vitamin mouth [...] Thomas MD - 08/25/2014 12:38 PM CDT [address] [place] [address] Dept: [phone] PRE-OP EVALUATION: Today's date: 08/25/2014 Andrew Pang (: 1955) presents for pre-operative evaluation assessment as requested by . He requires evaluation and anesthesia risk assessment prior to undergoing surgery/procedurefor treatment of Parkinson's . Proposed procedure: Deep brain stimulator implant Date of Surgery/ Procedure: 09/09& Time of Surgery/ Procedure: 529 Hospital/Surgical Facility: [facility] Primary Physician: Lurdes Thomas Type of [...] cardiovascular risks for perioperative complications such as (OK, PE, VFib and 3?? AV Block): No [...] related oxygen desaturations due to suspicion of LAITSHA Signed Electronically by: Lurdes Thomas MD Copy [...] care (reference Craniotomy/Craniectomy/Cranioplasty (Adult) CPG). Outcome: Improving [phone] Neuro: slight tremors hands, would freeze at [...] brain stimulator placement SURGEON: Gonzalez Rowland MD Freedom Of Information Officer: Arline Hutson NP 59 yo man with [...] eda holes were made with the 14mm application support intern drill over the markedbony entry points. The [...] microelectrode were inserted at 15mm above target, [id number] and impedences confirmed <400kohms. I began advancing [...] effects. The decisionwas made to insert a KCB Solutionstronic 3389 macroelectrode with the distal 0 contact [...] The decision was made to insert a KCB Solutionstronic 3389 macroelectrode with the distal 0 contact [...] 8:20 CDT AM CDT Gonzalez Rowland MD [facility] POCT Performing Organization Address City/State/ZIP Code Phon [...] stimulator leads. LOGAN GUILLERMO MD Arline Peñaloza GEAR AND SPLINE GRINDER PODIATRIST ASSISTANT IMG CT ORDERABLES Hemoglobin (09/09/2014 6:10 AM CDT) athologist Signature Hemoglobin 14.8 13.3 - 17.7 [place] g/dL [facility] Specimen Anatomical Collection Method Collection Time Receive d Time (Source) Location / / Volume Laterality Blood specimen 09/09/2014 6:10 AM 015 6:13 (specimen) CDT AM CDT Jacquie Cough[facility] LAB - BLOOD ORDERABLES Performing Organization Address City/State/ZIP Code Phon e Number [facility] [address] [place] [address] [place] [address] [place] [address] Potassium (09/09/2014 6:10 AM CDT) athologist Signature Potassium 3.4 3.4 - 5.3 [place] mmol/L [facility] Specimen Anatomical Collection Method Collection Time Receive d Time (Source) Location / / Volume Laterality Blood specimen 09/09/2014 6:10 AM 015 6:13 (specimen) CDT AM CDT Jacquie Coughlin LAB - BLOOD ORDERABLES Performing Organization Address City/State/ZIP Code Phon e Number [facility] [address] [place] [address] [place] [address] [place] [address] documented in this encounter Visit Diagnoses Not [...] Site /Surgical Site 09/09/14 at 0858, Intra-procedure nbtbwlmb-qurilnaimr-ntxyabthb-calcium Given 09/09/2014 4 mLs Operative (TISSEEL) topical [...] 09/10/2014 amantadine (SYMMETREL) capsule 100 mg (CANCELED) 0456 (Given - Provider: Nasim Haddad RN)2006 (Given - Provider: Nomi Manuel RN - Comment: Pt states he has not taken his two doses today.) 0728 (Given - Provider: Nomi Manuel RN)0917 (Given [...] RN)0754 (Given - Provider: Millicent Enciso APRN MIXED CROP AND LIVESTOCK FARMER)0954 (Given - Provider: Millicent Enciso APRN CRNA) 2 g, Intravenous, PRE-OP/PRE-PROCEDURE, Starting Mon09/09/14 at 0543, For 1 dose, Give first dose within 1 hour PRIOR to incision. If patient weight is greater than or equal to 120 kg change dose to 3 g ., Indications: Surgical Prophylaxis, Pre-procedure citalopram (celeXA) tablet 10 mg (CANCELED) 0919 (Given - Provider: Ivelisse cMcormack RN) 10 mg, Oral, DAILY, First dose [...] Volume Adjustment - Provider: Millicent Enciso APRN MIXED CROP AND LIVESTOCK FARMER)1020 (New Bag - Provider: Millicent Enciso APRN MIXED CROP AND LIVESTOCK FARMER)1059 (Anesthesia Volume Adjustment - Provider: Millicent Enciso APRN MIXED CROP AND LIVESTOCK FARMER) at 75-100 mL/hr, Intravenous, CONTINUOUS , UNLESS [...] RN) 0.3-0.5 mg, Intravenous, EVERY 30 MIN SC N, Starting 09/09/14 at 1209, Until 09/10/14 [...] Rowland) PRN, Starting 09/09/14 at 0858, Intra-procedure yplknhxb-cbtjwgqbgy-fnjulmmlh-calcium (TISSEEL) topical solu tion (CANCELED) 0859 (Given - Provider: Gonzalez Rowland)0900 (Given - Provider: Gonzalez Rowland)0901 (Given - Provider: Gonzalez Rowland)0921 (Given - Provider: Gonzalez Rowland)0943 (Given - Provider: Gonzalez Rowland) PRN, Starting Tu09/09/14 at 0859, Intra-procedure documented in this encounter Care Teams Window Shade Ring Coverer Relationship Specialty Start Date End Date Lurdes Thomas MD PCP - General Internal Medicine 06/11/14 12/16/20 documented as of this encounter
--- OUTSIDE RECORDS SUMMARY | 2021-12-28 18:04 | XMS_ITS | Encounter Summary ---
:1955 Author Organization [place] Address [address] [place] [address] Care Team Providers Name Role Phone Lurdes Thomas MD Primary Care Provider Reason for Visit Reason Comments Neurologic Problem Encounter Details Date Type Department Care Team Description 09/08/2014 Office Visit [facility] Arline Peñaloza S/Jana d eep brain Neurosurgery [facility] [place] STATE GAME WARDEN stimulator placement [place] [address] (Primary Dx) [address] [place], [place] [address] [address] [place] [address] Social History Tobacco Use [...] with tour of facility and escorted to [facility] for [facility] scan check in. - Patient [...] tomorrow 3 mins nursing discharge time --Nomi Martlel MSN, STARCH COOKER, STATE GAME WARDEN-C signature documented in this encounter Plan of Treatment Not on filedocumented as of this encounter Visit Diagnoses Diagnosis S/P deep brain stimulator placement - Pr imary documented in this encounter Care Teams Egg Sorter Relationship Specialty Start Date End Date Lurdes Thomas MD PCP - General Internal Medicine 06/11/14 12/16/20 documented as of this encounter
--- OUTSIDE RECORDS SUMMARY | 2021-12-28 18:04 | XMS_ITS | Encounter Summary ---
:1955 Author Organization [place] Address [address] [place] [address]. [place] [address] Care Team Providers Name Role Phone Lurdes Thomas MD Primary Care Provider [phone] Reason for Referral Consultation - Closed Specialty Diagnoses / Procedures Referred By Contact Refer red To Contact Diagnoses Dyspnea on exertion Lurdes Thomas [facility] [address] [place], [place] [address] [facility] [address] [place] [address] Referral ID Status Reason Start Date Expiration Date Visits Requ ested Visits Authorized [id number] Closed 07/10/2014 01/06/2015 1 1 CLEANING SUPERVISOR Encounter Details Date Type Department Care Team Description 07/10/2014 Orders Only [facility] Eag an Lurdes Thomas Dyspnea on exertion [address] Demian Laughlin MD (Primary Dx) [place] [address] [facility] [phone] [place] [address] [place] [address] Social History Tobacco Use Types [...] as of this encounter Plan of Treatment Scheduled Referrals Name Type Priority Associated Diagnoses Order S [facility] PULMONARY MEDICINE Referral Routine Dyspnea on exertion Or dered: 07/10/2014 REFERRAL documented as of this encounter Visit Diagnoses Diagnosis Dyspnea on exertion - Primary Other dyspnea and respiratory abnormalit y documented in this encounter Care Teams Tin Assorter Relationship Specialty Start Date End Date Lurdes Thomas MD PCP - General Internal Medicine 06/11/14 12/16/20 documented as of this encounter
--- OUTSIDE RECORDS SUMMARY | 2021-12-28 18:04 | XMS_ITS | Encounter Summary ---
:1955 Author Organization [place] Address [address] [facility] [address] Care Team Providers Name Role Phone Lurdes Thomas MD Primary Care Provider [phone] Reason for Visit (Routine) - Closed Specialty Diagnoses / Procedures Referred By Contact Refer red To Contact Radiology / Radiology. Procedures Nuclear Medicine [place] [facility] [address] [place] [address] Phone: Fax: Referral ID Status Reason Start Date Expiration Date Visits Requ ested Visits Authorized [id number] Closed 06/20/2014 06/20/2015 1 1 Encounter Details Date Type Department Care Team Description 06/25/2014 Hospital Encounter [facility] Lurdes Thomas MD [address] [facility] [address] [address] [facility] [phone] [place], [place] [address] (Wo rk) Social History [...] Take 1 capsule 8 capsule 0 06/1208/01/2014 42031 UNIT (50,000 Units) by capsuleIndications: mouth every [...] (shortness of Resu lts for this LEXISCAN WEATHER STRIPPER breath) procedure are i n the results section. documented in this encounter Visit Diagnoses Not on filedocumented in this encounter Care Teams Rn Orthopaedic Relationship Specialty Start Date End Date Lurdes Thomas MD PCP - General Internal Medicine 06/11/14 12/16/20 documented as of this encounter
--- OUTSIDE RECORDS SUMMARY | 2021-12-28 18:05 | XMS_ITS | Encounter Summary ---
:1955 Author Organization [place] Address [address] [place] [address]. [place] [address] Care Team Providers Name Role Phone Lurdes Thomas MD Primary Care Provider Reason for Visit Reason Comments Edema right foot and ankle Encounter Details Date Type Department Care Team Description 03/15/2011 Office Visit [facility] Lurdes Thomas Swelling of extremity, [place] MD right (Primary Dx) [address] [facility] [place] [address] [place] [phone] [address] [place], [place] [address] Social History Tobacco Use [...] CDT Ultrasound of right leg at 4:15 [facility] [address] [place] [address] Wait for results - will page me [...] about 2 weeks ago. Had traveled to [place] and [place] the week before. Only on right side. [...] lb 4.8 oz (88.587 kg) BMI 25.42 kg/t0Liofpbrjz Body mass index is 25.42 kg/(m^2) as [...] limb documented in this encounter Care Teams Signal Intelligence/Electronic Warfare Relationship Specialty Start Date End Date Lurdes Thomas MD PCP - General Internal Medicine 04/12/10 04/03/13 documented as of this encounter
--- OUTSIDE RECORDS SUMMARY | 2021-12-28 18:05 | XMS_ITS | Encounter Summary ---
:1955 Author Organization [place] Address [address] [place] [address]. [place] [address] Care Team Providers Name Role Phone Lurdes Thomas MD Primary Care Provider [phone] Reason for Visit Reason Onset Date Comments Results 10/20/2010 Encounter Details Date Type Department Care Team Description 10/20/2010 Telephone [facility] Eag Lurdes Rojas, Results 14[address] [facility] [place] [address] [facility] [phone] [address] [place], [place] [address] (Wo rk) Social History Tobacco Use [...] hyperlipidemia documented in this encounter Care Teams Brake Holder Relationship Specialty Start Date End Date Lurdes Thomas MD PCP - General Internal Medicine 04/12/10 04/03/13 documented as of this encounter
--- OUTSIDE RECORDS SUMMARY | 2021-12-28 18:05 | XMS_ITS | Encounter Summary ---
:1955 Author Organization [place] Address [address] [place] [address]. [place] [address] Care Team Providers Name Role Phone Lurdes Thomas MD Primary Care Provider [phone] Reason for Visit Reason Onset Date Comments Refill Request 06/08/2012 pravastatin Encounter Details Date Type Department Care Team Description 06/08/2012 Refill [facility] Eag Lurdes Rojas Refill Request 1440 [facility] MD [place] (pravastatin) [place] [address] [facility] [phone] [address] (Wo rk) Social History Tobacco Use [...] mailed to schedule appointment. Jeannine Waldron RN ORMANCE TEST ARCHITECT Telephone Encounter - Jeannine Waldron - 06/08/2012 1:33 PM CST Med requested: pravastatin Last office visit: 07/27/11 BP Readings from Last 1 Encounters: 10/25/11 104/66 Last pertinent lab: CHOL 236 07/27/2011 HDL 60 07/27/2011 LDL 152 07/27/2011 TRIG 121 07/27/2011 CHOLHDLRATIO 3.9 07/27/2011 AST 35 07/27/2011 ALT 20 07/27/2011 Jeannine Waldron RN ORMANCE TEST ARCHITECT documented in this encounter Plan of Treatment Not on filedocumented as of this encounter Visit Diagnoses Diagnosis Hyperlipidemia LDL goal < 130 - Primary Other and unspecified hyperlipidemia documented in this encounter Care Teams Ending Machine Operator Relationship Specialty Start Date End Date Martha, Lurdes Laughlin MD PCP - General Internal Medicine 04/12/10 04/03/13 documented as of this encounter
--- OUTSIDE RECORDS SUMMARY | 2021-12-28 18:05 | XMS_ITS | Encounter Summary ---
:1955 Author Organization [place] Address [address] [place] [address]. [place] [address] Care Team Providers Name Role Phone Lurdes Thomas MD Primary Care Provider [phone] Reason for Visit Reason Comments Refill Request lab draw Encounter Details Date Type Department Care Team Description 09/20/2012 Office Visit [facility] Lurdes Thomas Hyperlipi demkatlyn LDL goal < 130 (Primary Dx); [place] Laughlin MD Parkinson disease (H); [address] [place] Prediabetes; [place] [address] [place] Screening for diabetes mellitus; [phone] 86[address] [facility] [place] [address] Social History Tobacco Use Types Packs/Day Years [...] Body Mass Index 23.75 07/27/2011 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 OBJECTIVE: BP 112/62 Pulse [...] Provider - 1 year Lurdes Thomas MD [facility] documented in this encounter Nursing Notes 09/20/2012 8:00 AM CDT >> ERROL WARREN [facility] September 20, 2012 8:08 AM Patient [...] athologist Signature Sodium 139 133 - 144 [facility] mmol/L [facility] Potassium 4.6 3.4 - 5.3 [facility] mmol/L [facility] Chloride 101 94 - 109 [facility] mmol/L [facility] Carbon Dioxide 31 20 - 32 [facility] mmol/L [facility] Anion Gap 7 6 - 17 [facility] mmol/L [facility] Glucose 104 (H) 60 - 99 [facility] mg/dL CLINIC LAB Comment: Fasting specimen Urea Nitrogen 24 7 - 30 mg/dL [facility] Creatinine 0.94 0.66 - 1.25 mg/dL [facility] GFR Estimate 83 >60 mL/min/1.7m2 [facility] GFR Estimate If Black >90 >60 mL/min/1.7m2 [facility] Calcium 8.8 8.5 - 10.4 mg/dL [facility] Bilirubin Total 1.0 0.2 - 1.3 mg/dL [facility] Albumin 4.1 3.3 - 4.9 g/dL [facility] Comment: Reference range changed on 01/21. Protein Total 7.0 6.8 - 8.8 g/dL [facility] Comment: As of 07, reference range reflects plasma specimen type. Alkaline Phosphatase 81 40 - 150 U/L [facility] ALT 17 0 - 70 U/L [facility] CLIN IC LAB AST 54 (H) 0 - 45 U/L [facility] CLIN IC LAB Specimen Anatomical Collection Method Collection Time Receive d Time (Source) Location / / Volume Laterality Blood specimen 09/20/2012 8:17 AM 013 8:22 (specimen) CDT AM CDT Lurdes Thomas MD LAB - BLOOD ORDERABLES Performing Organization Address City/State/ZIP Code Phon e Number [facility] [address] [place] [address] [facility] [address] [place] [address] Lipid panel reflex to direct LDL (09/20/2012 8:17 AM CDT) athologist Signature Cholesterol 178 0 - 200 [facility] mg/dL CLINIC LAB Comment: LDL Cholesterol is the primary guide to therapy. The NCEP recommends further evaluation of: patients with cholesterol greater than 200 mg/dL if additional risk facto rs are present, cholesterol greater than 240 mg/dL, triglycerides greater than 1 50 mg/dL, or HDL less than 40 mg/dL. Triglycerides 83 0 - 150 mg/dL [facility] HDL Cholesterol 66 40 - 110 mg/dL [facility] LDL Cholesterol Calculated 95 0 - 129 mg/dL [facility] Comment: LDL Cholesterol is the primary guide to therapy: LDL-cholesterol goal in high risk patients is <100 mg/dL and in very high risk patients is <70 mg/dL. VLDL-Cholesterol 17 0 - 30 mg/dL [facility] Cholesterol/HDL Ratio 2.7 0.0 - 5.0 [facility] Specimen Anatomical Collection Method Collection Time Receive d Time (Source) Location / / Volume Laterality Blood specimen 09/20/2012 8:17 AM 013 8:22 (specimen) CDT AM CDT Lurdes Thomas MD LAB - BLOOD ORDERABLES Performing Organization Address City/State/ZIP Code Phon e Number [facility] [address] [place] [address] [facility] [address] [place] [address] documented in this encounter Visit Diagnoses Diagnosis Hyperlipidemia LDL goal < 130 - Primary Other and unspecified hyperlipidemia Parkinson disease (H) Paralysis agitans Prediabetes Other abnormal glucose Screening for diabetes mellitus Screening for colon cancer Special screening for malignant neoplasm s, colon documented in this encounter Care Teams Waiter Relationship Specialty Start Date End Date Lurdes Thomas MD PCP - General Internal Medicine 04/12/10 04/03/13 documented as of this encounter
--- OUTSIDE RECORDS SUMMARY | 2021-12-28 18:05 | XMS_ITS | Encounter Summary ---
:1955 Author Organization [place] Address [address] [place] [address]. [place] [address] Care Team Providers Name Role Phone Lurdes Thomas MD Primary Care Provider Reason for Visit Reason Onset Date Comments Lab Result Notice 07/28/2011 Encounter Details Date Type Department Care Team Description 07/28/2011 Telephone [facility] Eag an Lurdes Thomas Lab Result Notice 14[address] [facility] [place] [address] [facility] [phone] [address] (Wo rk) Social History Tobacco Use [...] Lurdes Laughlin MD - 07/28/2011 9:25 PM PRINT PRODUCTION ASSOCIATE LDL not at goal, needs increased dose. Lurdes Laughlin MD Internal Medicine/Pediatrics T PRODUCTION ASSOCIATE documented in this encounter Plan of Treatment Not on filedocumented as of this encounter Visit Diagnoses Diagnosis Hyperlipidemia LDL goal < 130 - Primary Other and unspecified hyperlipidemia documented in this encounter Care Teams Process Control Technician Relationship Specialty Start Date End Date Lurdes Thomas MD PCP - General Internal Medicine 04/12/10 04/03/13 documented as of this encounter
--- OUTSIDE RECORDS SUMMARY | 2021-12-28 18:05 | XMS_ITS | Encounter Summary ---
:1955 Author Organization [place] Address [address] [place] [address]. [place] [address] Care Team Providers Name Role Phone Lurdes Thomas MD Primary Care Provider [phone] Reason for Visit Reason Onset Date Comments Back Pain 07/20/2011 6 wk follow up Encounter Details Date Type Department Care Team Description 07/20/2011 Telephone [facility] Lurdes Oh Back Pain (6 wk follow 1440 [facility] MD [place] up) [place] [address] [facility] [phone] [address] (Wo rk) Social History Tobacco Use [...] for patient to return call or send ZAPRhart message on how he is doing with backpain. Kristina Brandt RN Telephone Encounter - Maki Major - 08/22/2011 3:28 PM CDT LOW BACK PAIN nursing triage 6 week follow-up: Maki Major [facility] Tele[facility] Encounter - Blanca Brandt - 07/20/2011 10:38 AM CST Please post pone and call patient for 6wk follow up of low back pain on or around 08/22/11. Kristina Brandt RN R COACH SUPERVISOR documented in this encounter Plan of Treatment Not on filedocumented as of this encounter Visit Diagnoses Not on filedocumented in this encounter Care Teams Welder Shielded Metal Arc Relationship Specialty Start Date End Date Lurdes Thomas MD PCP - General Internal Medicine 04/12/10 04/03/13 documented as of this encounter
--- OUTSIDE RECORDS SUMMARY | 2021-12-28 18:05 | XMS_ITS | Encounter Summary ---
:1955 Author Organization [place] Address [address] [place] [address]. [place] [address] Care Team Providers Name Role Phone Lurdes Thomas MD Primary Care Provider Reason for Visit Reason Onset Date Comments Pt. Information/instruction 10/26/2011 Physical the rapy Encounter Details Date Type Department Care Team Description 10/26/2011 Telephone [facility] Eag Lurdes Rojas Pt. 1440 [facility] MD [place] Information/instruction [place] [address] [facility] (Physical therapy) [phone] [place] [address] (Wo rk) Social History Tobacco Use [...] took him to a chiropractor here in [place] who does the ultrasound treatments. He got [...] on filedocumented in this encounter Care Teams College [employer] Department Head Relationship Specialty Start Date End Date Lurdes Thomas MD PCP - General Internal Medicine 04/12/10 04/03/13 documented as of this encounter
--- OUTSIDE RECORDS SUMMARY | 2021-12-28 18:05 | XMS_ITS | Encounter Summary ---
:1955 Author Organization [place] Address [address] [place] [address]. [place] [address] Care Team Providers Name Role Phone Lurdes Thomas MD Primary Care Provider [phone] Reason for Visit Reason Comments Physical Encounter Details Date Type Department Care Team Description 10/15/2010 Office Visit [facility] Lurdes Thomas Routine g eneral medical examination at a health care facility (Primary Dx); Uzair Laughlin MD Restless leg syndrome; [address] [employer] Hyperlipidemia LDL goal < 13 0; [place] [address] [place] Erectile dysfunction; [phone] [address] [facility] Parkinson disease (H); RD Screening for colon cancer; [place], [place] Screening for p rostate cancer; [address] Screening for diabetes mellitus Social History Tobacco [...] effects. All Histories reviewed and updated in [facility]. ROS: C: NEGATIVE for fever, chills, [...] diabetes mellitus Plan: Comprehensive metabolic panel Lurdes Laughlni MD Internal Medicine/Pediatrics documented in this encounter [...] Signature PSA 0.85 0 - 4 ug/L [facility] Specimen Anatomical Collection Method Collection Time Receive d Time (Source) Location / / Volume Laterality Blood specimen 10/15/2010 8:32 AM 011 8:37 (specimen) CDT AM CDT Lurdes Thomas MD LAB - BLOOD ORDERABLES Performing Organization Address City/[facility] Code Phon e Number [facility] [address] [place] [phone] [facility] Ferritin (10/15/2010 8:32 AM CDT) athologist Signature Ferritin 47 20 - 300 [facility] ng/mL CLINIC LAB Specimen Anatomical Collection Method Collection Time Receive d Time (Source) Location / / Volume Laterality Blood specimen 10/15/2010 8:32 AM 011 8:37 (specimen) CDT AM CDT Lurdes Thomas MD LAB - BLOOD ORDERABLES Performing Organization Address City/[facility] Phon e Number [facility] [address] [place] [phone] [facility] (ABNORMAL[facility] Comprehensive metabolic panel (10/15/2010 8:32 AM CDT) P athologist Signature Sodium 142 133 - 144 [place] [facility] mmol/L [facility]INIC LAB Potassium 4.7 3.4 - 5.3 [facility] Chloride 103 94 - 109 [facility] mmol/L [facility] Carbon Dioxide 28 20 - 32 [place] [facility] mmol/L [facility] Anion Gap 11 6 - 17 [facility] mmol/L [facility] Comment: CORRECTED ON 10/18 AT 1537: PRE VIOUSLY REPORTED 10 Glucose 101 (H) 60 - 99 mg/dL [facility] LIN LAB Urea Nitrogen 21 7 - 30 mg/dL [facility] N [facility] Creatinine 0.99 0.66 - 1.25 mg/dL [facility] GFR Estimate 79 >60 mL/min/1.7m2 [place] [facility] Comment: CORRECTED ON 10/18 AT 1537: PRE VIOUSLY REPORTED Not Calculated GFR Estimate If Black >90 >60 mL/min/1.7m2 F [facility] CORRECTED ON 10/18 AT 1537: PREVIOUSLY REPORTED Not Tres culated CLINIC LAB Calcium 9.0 8.5 - 10.4 mg/dL [facility] Bilirubin Total 0.7 0.2 - 1.3 mg/dL [facility] Albumin 4.2 3.9 - 5.1 g/dL [facility] Comment: Reference range changed on 01/21. Protein Total 7.1 6.8 - 8.8 g/dL [facility] Comment: As of 07, reference range reflects plasma specimen type. Alkaline Phosphatase 77 40 - 150 U/L [facility] CLINIC LAB ALT 15 0 - 70 U/L [facility] CLIN IC LAB AST 31 0 - 55 U/L [facility] LAB Specimen Anatomical Collection Method Collection Time Receive d Time (Source) Location / / Volume Laterality Blood specimen 10/15/2010 8:32 AM 011 8:37 (specimen) CDT AM CDT Lurdes Thomas MD LAB - BLOOD ORDERABLES Performing Organization Address City/[facility] Phon e Number [facility] [address] [place] [address] [phone] [facility] (ABNORMAL) Lipid Profile (10/15/2010 8:32 AM CDT) P athologist Signature Cholesterol 232 (H) 0 - 200 [facility] mg/dL CLINIC LAB Comment: LDL Cholesterol is the primary guide to therapy. The NCEP recommends further evaluation of: patients with cholesterol greater than 200 mg/dL if additional risk facto rs are present, cholesterol greater than 240 mg/dL, triglycerides greater than 1 50 mg/dL, or HDL less than 40 mg/dL. Triglycerides 95 0 - 150 mg/dL [facility] HDL Cholesterol 56 40 - 110 mg/dL [facility] LDL Cholesterol Calculated 157 (H) 0 - 129 mg/dL [facility] Comment: LDL Cholesterol is the primary guide to therapy: LDL-cholesterol goal in high risk patients is <100 mg/dL and in very high risk patients is <70 mg/dL. VLDL-Cholesterol 19 0 - 30 mg/dL [facility] Cholesterol/HDL Ratio 4.1 0.0 - 5.0 [facility] Comment: CORRECTED ON 10/18 AT 1537: PRE VIOUSLY REPORTED 4.2 Specimen Anatomical Collection Method Collection Time Receive d Time (Source) Location / / Volume Laterality Blood specimen 10/15/2010 8:32 AM 011 8:37 (specimen) CDT AM CDT Lurdes Thomas MD LAB - BLOOD ORDERABLES Performing Organization Address [facility] Phon e Number [facility] [address] [place] [address] [phone] [facility] documented in this encounter Visit Diagnoses [...] mellitus documented in this encounter Care Teams Test Hole Driller Relationship Specialty Start Date End Date Lurdes Thomas MD PCP - General Internal Medicine 04/12/10 04/03/13 documented as of this encounter
--- OUTSIDE RECORDS SUMMARY | 2021-12-28 18:05 | XMS_ITS | Encounter Summary ---
:1955 Author Organization [place] Address [address] [place] [address]. [place] [address] Care Team Providers Name Role Phone Lurdes Thomas MD Primary Care Provider [phone] Reason for Visit Reason Comments Hypertension labs Encounter Details Date Type Department Care Team Description 07/27/2011 Office Visit [facility] Lurdes Thomas (Primary Dx); Uzair Laughlin MD Hyperlipidemia LDL goal < 130; [address] [employer] Parkinson disease (H); [place] [id number] [place] Screening for diabetes mellitus [phone] [address] [place] [address] Social History Tobacco Use Types [...] Comments Blood Pressure 124/70 07/27/2011 10:04 AM SAMPLE SELECTOR Pulse 65 07/27/2011 10:04 AM SAMPLE SELECTOR Temperature 36.3 ??C (97.3 ??F) 07/27/2011 10:04 AM SAMPLE SELECTOR Respiratory Rate - - Oxygen Saturation - - Inhaled Oxygen Concentration - - Weight 87.7 kg (193 lb 6.4 oz) 07/27/2011 10:04 AM SAMPLE SELECTOR Height 186.7 cm (6' 1.5) 07/27/2011 10:04 AM SAMPLE SELECTOR Body Mass Index 25.17 07/27/2011 10:04 AM SAMPLE SELECTOR documented in this encounter Patient Instructions Patient InstructionsLurdes Laughlin MD - 07/27/2011 10:35 AM SAMPLE SELECTOR 1. Labs today: cholesterol, electrolytes, diabetes screen, liver function and kidney function 2. Consider checking blood pressure when get hot/flushed feeling 3. Keep a log of when it happens, how Parkinson's is that day, any increased medications, stress/anxiety level LE SELECTOR documented in this encounter Progress Notes Lurdes [...] Parkinson's, HLP. Lurdes Laughlin MD Internal Medicine/Pediatrics LE SELECTOR documented in this encounter Nursing Notes 07/27/2011 [...] sults for this DIRECT LDL PANEL AM SAMPLE SELECTOR goal < 130 procedure a re in the results section. COMPREHENSIVE Routine 07/27/2011 10:35 Hyperlipidemia LDL Resu lts for this METABOLIC PANEL AM SAMPLE SELECTOR goal < 130 procedure are in Screening for diabetes the r esults mellitus section. documented in this encounter Results Comprehensive metabolic panel (07/27/2011 10:35 AM SAMPLE SELECTOR) P athologist Signature Sodium 138 133 - 144 [facility] mmol/L [facility] LAB Potassium 4.2 3.4 - 5.3 [facility] mmol/L [facility] Chloride 105 94 - 109 [facility] mmol/L [facility] Carbon Dioxide 21 20 - 32 [facility]/L [facility] Anion Gap 11 6 - 17 [facility] mmol/L [facility] Glucose 99 60 - 99 [facility] mg/dL [facility] LAB Urea Nitrogen 18 7 - 30 [facility] mg/dL [facility] LAB Creatinine 0.80 0.66 - [facility] 1.25 mg/dL CLINIC LAB GFR Estimate >90 >60 [facility] mL/min/1.7 CLINIC LAB m2 GFR Estimate If >90 >60 [facility] Black mL/min/1.7 CLINIC LAB m2 Calcium 9.3 8.5 - 10.4 [facility] mg/dL CL[facility] LAB Bilirubin Total 0.7 0.2 - 1.3 [facility] mg/dL [facility] Albumin 4.2 3.3 - 4.9 [facility] g/dL [facility] LAB Comment: Reference range changed on 01/21. Protein Total 7.4 6.8 - 8.8 g/dL [facility] Comment: As of 07, reference range reflects plasma specimen type. Alkaline Phosphatase 87 40 - 150 U/L [facility] LAB ALT 20 0 - 70 U/L [facility] AST 35 0 - 45 U/L [facility] CLIN IC LAB Specimen Anatomical Collection Method Collection Time Receive d Time (Source) Location / / Volume Laterality Blood specimen 07/27/2011 10:35 2 (specimen) AM SAMPLE SELECTOR 10:38 AM SAMPLE SELECTOR Lurdes Thomas MD LAB - BLOOD ORDERABLES Performing Organization Address City/State/ZIP Code Phon e Number [facility] [address] [place] [address] [facility] LAB (ABNORMAL) Lipid panel reflex to direct LDL (07/27/2011 10:35 AM SAMPLE SELECTOR) P athologist Signature Cholesterol 236 (H) 0 - 200 [facility] mg/dL CLINIC LAB Comment: LDL Cholesterol is the primary guide to therapy. The NCEP recommends further evaluation of: patients with cholesterol greater than 200 mg/dL if additional risk facto rs are present, cholesterol greater than 240 mg/dL, triglycerides greater than 1 50 mg/dL, or HDL less than 40 mg/dL. Triglycerides 121 0 - 150 mg/dL [facility] HDL Cholesterol 60 40 - 110 mg/dL [facility] LDL Cholesterol Calculated 152 (H) 0 - 129 mg/dL [facility] Comment: LDL Cholesterol is the primary guide to therapy: LDL-cholesterol goal in high risk patients is <100 mg/dL and in very high risk patients is <70 mg/dL. VLDL-Cholesterol 24 0 - 30 mg/dL [facility] Cholesterol/HDL Ratio 3.9 0.0 - 5.0 [facility] Specimen Anatomical Collection Method Collection Time Receive d Time (Source) Location / / Volume Laterality Blood specimen 07/27/2011 10:35 2 (specimen) AM SAMPLE SELECTOR 10:38 AM SAMPLE SELECTOR Lurdes Thomas MD LAB - BLOOD ORDERABLES Performing Organization Address City/State/ZIP Code Phon e Number [address] [address] [facility] documented in this encounter Visit Diagnoses Diagnosis Flushing - Primary Hyperlipidemia LDL goal < 130 Other and unspecified hyperlipidemia Parkinson disease (H) Paralysis agitans Screening for diabetes mellitus documented in this encounter Care Teams Medical Charge Entry Specialist Relationship Specialty Start Date End Date Lurdes Thomas MD PCP - General Internal Medicine 04/12/10 04/03/13 documented as of this encounter
--- OUTSIDE RECORDS SUMMARY | 2021-12-28 18:05 | XMS_ITS | Encounter Summary ---
:1955 Author Organization [place] Address [address] [place] [address]. [place] [address] Care Team Providers Name Role Phone Lurdes Thomas MD Primary Care Provider Reason for Visit Reason Onset Date Comments Back Pain 07/11/2011 3 day follow up Encounter Details Date Type Department Care Team Description 07/11/2011 Refill [facility] Lurdes Oh Back Pain (3 day follow [address] [facility] MD [place] up) [place] [id number] [facility] [phone] [address] (Wo rk) Social History [...] to correct posture; stop aggravating activities. ?? [id number]-[id number] pain medications for short term symptom control. [...] provider immediately. Medications for Pain Relief Recommended ludk-lln-skgpnqd non-steroidal anti-inflammatories: Ibuprofen (Advil, Motrin) 600 mg. [...] this several times a day. Developed by [employer] Published by [employer]. Last modified: 2008-06-29 Last reviewed: 2007-11-26 This content is reviewed periodically and is subject to change as new health information becomes available. The information is intended to inform and educate and is not a replacement for medical evaluation, advice, diagnosis or treatment by a healthcare professional. Adult Health Advisor 2009.1 Index Adult Health Advisor 2009.1 Credits ?? 2009 [facility] and/or its affiliates. All Rights Reserved. [employer] documented in this encounter Miscellaneous Notes Telephone [...] of plan and is agreeable. Blanca Brandt [employer] Telephone Encounter - Blanca Brandt - 07/11/2011 10:18 AM CST Called and spoke with patient and informed of message from Dr. Laughlin below. Mailed back exercises.Patient is wanting to hold off on physical therapy at this time. Kristina Brandt RN [employer] Telephone Encounter - Nathalia Galvan - 07/11/2011 9:50 AM CST Called and LM for pt with message below. Nathalia Galvan MA [employer] Telephone Encounter - Lurdes Laughlin MD - 07/11/2011 9:08 AM TELEGRAPH LINEMAN Ibuprofen or naproxen are ok. Flexeril has potential interaction with azilect. I changed muscle relaxant to methocarbamol (robaxin) and sent to pharmacy. This also may make him sleepy. Please let patient know. Thanks, Lurdes Laughlin MD Internal Medicine/Pediatrics [employer] Telephone Encounter - Blanca Brandt - 07/11/2011 8:32 AM CST Images from the original note were not included. Patient calls stating he was bending over to clean [employer] box yesterday morning and had back pain. He is leaving for [place] for work this afternoon. Wants to make [...] to correct posture; stop aggravating activities. ?? Pbwa-xpy-wneknnq pain medications for short term symptom control. [...] provider immediately. Medications for Pain Relief Recommended arpv-ikj-uathuvq non-steroidal anti-inflammatories: Ibuprofen (Advil, Motrin) 600 mg. [...] this several times a day. Developed by [employer] Published by [employer]. Last modified: 2008-06-29 Last reviewed: 2007-11-26 This content is reviewed periodically and is subject to change as new health information becomes available. The information is intended to inform and educate and is not a replacement for medical evaluation, advice, diagnosis or treatment by a healthcare professional. Adult Health Advisor 2009.1 Index Adult Health Advisor 2009.1 Credits ?? 2009 [facility] and/or its affiliates. All Rights Reserved. [employer] documented in this encounter Plan of Treatment Not on filedocumented as of this encounter Visit Diagnoses Diagnosis Back muscle spasm - Primary Other symptoms referable to back documented in this encounter Care Teams Patent Prosecution Attorney Relationship Specialty Start Date End Date Lurdes Thomas MD PCP - General Internal Medicine 04/12/10 04/03/13 documented as of this encounter
--- OUTSIDE RECORDS SUMMARY | 2021-12-28 18:05 | XMS_ITS | Encounter Summary ---
:1955 Author Organization [place] Address [address] [place] [address]. [place] [address] Care Team Providers Name Role Phone Lurdes Thomas MD Primary Care Provider [phone] Reason for Visit Reason Comments Establish Care Encounter Details Date Type Department Care Team Description 04/12/2010 Office Visit [facility] Lurdes Thomas Erectile dysfunction (Primary Dx); Uzair Laughlin MD Parkinson disease (H); [address] [employer] Hyperlipidemia LDL goal < 13 0; [place] [phone] [place] Restless leg [phone] [place] [address] Social History Tobacco Use Types [...] Comments Blood Pressure 122/60 04/12/2010 10:07 AM SILK WASHING MACHINE OPERATOR Pulse 70 04/12/2010 10:07 AM SILK WASHING MACHINE OPERATOR Temperature - - Respiratory Rate - - Oxygen Saturation - - Inhaled Oxygen Concentration - - Weight 87 kg (191 lb 12.8 oz) 04/12/2010 10:07 AM SILK WASHING MACHINE OPERATOR Height 186.7 cm (6' 1.5) 04/12/2010 10:07 AM SILK WASHING MACHINE OPERATOR Body Mass Index 24.96 04/12/2010 10:07 AM SILK WASHING MACHINE OPERATOR documented in this encounter Progress Notes Lurdes [...] MG tablet Lurdes Laughlin MD Internal Medicine/Pediatrics WASHING MACHINE OPERATOR documented in this encounter Nursing Notes 04/12/2010 [...] (RLS) documented in this encounter Care Teams Speeder Hand Relationship Specialty Start Date End Date Lurdes Thomas MD PCP - General Internal Medicine 04/12/10 04/03/13 documented as of this encounter
--- OUTSIDE RECORDS SUMMARY | 2021-12-28 18:05 | XMS_ITS | Encounter Summary ---
:1955 Author Organization [place] Address [address] [place] [address]. [place] [address] Care Team Providers Name Role Phone Oli Thomas MD Primary Care Provider [phone] Reason for Visit Reason Comments Breathing Problem Encounter Details Date Type Department Care Team Description 06/11/2014 Office Visit [facility] Oli Thomas SOB (shor tness of breath) (Primary Dx); Uzair Laughlin MD Fatigue; [address] Vitamin D deficiency disease ; [place] [address] [place] Lower extremity edema; [phone] [address] [facility] GERD (ghazala roesophageal reflux disease) [place], [place] [address] Social History Tobacco Use [...] Comments Blood Pressure 114/70 06/11/2014 8:04 AM SHEET ROCK INSTALLER Pulse 99 06/11/2014 8:04 AM SHEET ROCK INSTALLER Temperature 36.9 ??C (98.5 ??F) 06/11/2014 8:04 AM SHEET ROCK INSTALLER Respiratory Rate - - Oxygen Saturation 94% 06/11/2014 8:04 AM SHEET ROCK INSTALLER Inhaled Oxygen Concentration - - Weight 95.6 kg (210 lb 12.8 oz) 06/11/2014 8:04 AM SHEET ROCK INSTALLER Height 186.7 cm (6' 1.5) 06/11/2014 8:04 AM SHEET ROCK INSTALLER Body Mass Index 27.43 06/11/2014 8:04 AM SHEET ROCK INSTALLER documented in this encounter Patient Instructions Patient InstructionsSerumOli MD - 06/11/2014 9:03 AM SHEET ROCK INSTALLER 1. Labs today: liver function, kidney function, blood counts, vitamin D levels 2. You will be contacted to set up the stress test and echocardiogram (ultrasound) of the heart T ROCK INSTALLER documented in this encounter Progress Notes Oli [...] likely in July. [facility]. [facility] at [facility] last year. Reviewed labs in care [...] list, Allergies, and Medical/Social/Surgical histories reviewed in [facility] andupdated as appropriate. OBJECTIVE: BP 114/70 Pulse [...] with Provider - 1 month Oli Thomas [facility] UZA[facility] T ROCK INSTALLER documented in this encounter Nursing Notes Tamy [...] using cuff size: large Tamy Leahy LPN T ROCK INSTALLER documented in this encounter Miscellaneous Notes Addendum Note - Oli Thomas MD - 06/12/2014 4:46 PM SHEET ROCK INSTALLER Addended by: OLI THOMAS on: 06/12/2014 04:46 PM Modules accepted: Orders T ROCK INSTALLER documented in this encounter Plan of Treatment Not on filedocumented as of this encounter Procedures Procedure Name Priority Date/Time Associated Comments Diagnosis CBC WITH PLATELETS & Routine 06/11/2014 9:05 AM SOB (shortness of Results for this DIFFERENTIAL SHEET ROCK INSTALLER breath) procedure are in Fatigue the results section. VITAMIN D DEFICIENCY Routine 06/11/2014 9:05 AM Vitamin D R esults for this SCREENING SHEET ROCK INSTALLER deficiency disease procedure are in the results section. COMPREHENSIVE Routine 06/11/2014 9:05 AM SOB (shortness of Res ults for this METABOLIC PANEL SHEET ROCK INSTALLER breath) procedure are in Fatigue the results Lower extremity section. edema EKG 12-LEAD COMPLETE Routine 06/11/2014 SOB (shortness of Re sults for this W/READ - CLINICS breath) procedure a re in the results section. documented in this encounter Results NM Lexiscan stress test (06/25/2014 1:06 PM SHEET ROCK INSTALLER) Anatomical Region Laterality Modality Chest Nuclear Medicine Specimen (Source) Anatomical Location Collection Method / Collectio n Time Received Time / Laterality Volume Narrative 06/26/2014 10:06 AM SHEET ROCK INSTALLER GATED MYOCARDIAL PERFUSION SCINTIGRAPHY WITH INTRAVENOUS PHARMACOLOGIC [...] (ABNORMAL) Vitamin D Deficiency (06/11/2014 9:05 AM SHEET ROCK INSTALLER) P athologist Signature Vitamin D 21 (L) 30 - 75 [facility] Deficiency ug/L [place] [facility] screening [facility] Comment: Season, race, dietary intake, and treatm ent affect the concentration of 30-lhliogi-Hkmexgl D. Values may decrea se during winter [...] specimen 06/11/2014 9:05 AM 015 9:07 (specimen) SHEET ROCK INSTALLER AM SHEET ROCK INSTALLER Oli Thomas MD LAB - BLOOD ORDERABLES Performing Organization Address City/State/ZIP Code Phon e Number [address] [address] [facility] CBC with platelets differential (06/11/2014 9:05 AM SHEET ROCK INSTALLER) [facility] gist Method Time Signature WBC 4.8 4.0 - [facility] 11.0 CLINICS 10e9/L [facility] RBC Count 5.06 4.4 - 5.9 [facility] 10e12/L [facility] Hemoglobin 15.4 13.3 - [facility] 17.7 g/dL [facility] Hematocrit 46.8 40.0 - [facility] 53.0 % CLINICS [facility] MCV 93 78 - 100 [place] fl [facility] MCH 30.4 26.5 - [facility] 33.0 pg CLINICS [facility] MCHC 32.9 31.5 - [facility] 36.5 g/dL [facility] RDW 12.7 10.0 - [facility] 15.0 % [facility] Platelet Count 205 150 - 450 [facility] 10e9/L [facility] Diff Method Automated [place] Method [facility] % Neutrophils 55.7 % [place] [facility] % Lymphocytes 32.6 % [place] % Monocytes 9.8 % [place] [facility] % Eosinophils 1.5 % [place] [facility] % Basophils 0.4 % [place] [facility] Absolute 2.7 1.6 - 8.3 [facility] Neutrophil 10e9/L [facility] Absolute 1.6 0.8 - 5.3 [facility] Lymphocytes 10e9/L [facility] Absolute 0.5 0.0 - 1.3 [facility] Monocytes 10e9/L [facility] Absolute 0.1 0.0 - 0.7 [facility] Eosinophils 10e9/L [facility] Absolute 0.0 0.0 - 0.2 [facility] Basophils 10e9/L [facility] Specimen Anatomical Collection Method Collection Time Receive d Time (Source) Location / / Volume Laterality Blood specimen 06/11/2014 9:05 AM 015 9:07 (specimen) SHEET ROCK INSTALLER AM SHEET ROCK INSTALLER Oli Thomas MD LAB - BLOOD ORDERABLES Performing Organization Address City/State/ZIP Code Phon e Number [facility] [address] [place] [address] (ABNORMAL) Comprehensive metabolic panel (06/11/2014 9:05 AM SHEET ROCK INSTALLER) Analysis Performed At [facility] logis Time Signature Sodium 139 133 - 144 [place] mmol/L [facility] Potassium 4.7 3.4 - 5.3 [place] mmol/L [facility] Chloride 104 94 - 109 [place] mmol/L [facility] Carbon Dioxide 31 20 - 32 [place] mmol/L [facility] Anion Gap 4 3 - 14 [place] mmol/L [facility] Glucose 102 (H) 70 - 99 [place] mg/dL [facility] Comment: Effective 12/18/2013, the reference range for this assay has changed to reflect new instrumentation/methodology. Urea Nitrogen 21 7 - 30 mg/dL [place] [facility] Comment: Effective 12/18/2013, the reference range for this assay has changed to reflect new instrumentation/methodology. Creatinine 0.82 0.66 - 1.25 [facility] mg/dL [facility] GFR Estimate >90 >60 mL/min/1.7m2 [facility] Non GFR Calc [facility] GFR Estimate If Black >90 >60 mL/min/1.7m2 F [facility] GFR Calc BLOO [facility] Calcium 9.1 8.5 - 10.1 mg/dL [place] [facility] Comment: Effective 12/18/2013, the reference range for this assay has changed to reflect new instrumentation/methodology. Bilirubin Total 0.6 0.2 - 1.3 mg/dL [facility] Albumin 4.1 3.4 - 5.0 g/dL [facility] S [facility] Protein Total 7.5 6.8 - 8.8 g/dL [place] [facility] Alkaline Phosphatase 106 40 - 150 U/L [facility] ALT 20 0 - 70 U/L [facility] AST 37 0 - 45 U/L [facility] Specimen Anatomical Collection Method Collection Time Receive d Time (Source) Location / / Volume Laterality Blood specimen 06/11/2014 9:05 AM 015 9:07 (specimen) SHEET ROCK INSTALLER AM SHEET ROCK INSTALLER Oli Thomas MD LAB - BLOOD ORDERABLES Performing Organization Address City/State/ZIP Code Phon e Number [facility] [address] [place] [address] XR Chest 2 Views (06/11/2014 8:52 AM SHEET ROCK INSTALLER) Anatomical Region Laterality Modality Chest Computed Radiography Specimen (Source) Anatomical Location Collection Method / Collectio n Time Received Time / Laterality Volume Impressions 06/11/2014 9:24 AM SHEET ROCK INSTALLER IMPRESSION: ??Negative. CYNTHIA PACE MD Narrative 06/11/2014 9:24 AM SHEET ROCK INSTALLER XR CHEST 2 VW ??06/11/2014 8:52 AM HISTORY: ??Shortness of breath. COMPARISON: ??None. Procedure Note Cynthia Pace MD - 5 XR CHEST 2 VW 06/11/2014 8:52 AM HISTORY: Shortness of breath. COMPARISON: None. IMPRESSION IMPRESSION: Negative. CYNTIHA PACE MD Oli Thomas MD IMG DIAGNOSTIC [...] breath documented in this encounter Care Teams Silk Weaver Relationship Specialty Start Date End Date Oli Thomas MD PCP - General Internal Medicine 06/11/14 12/16/20 documented as of this encounter
--- OUTSIDE RECORDS SUMMARY | 2021-12-28 18:05 | XMS_ITS | Encounter Summary ---
:1955 Author Organization Agency Address [address] [place] [address]. [place] [address] Care Team Providers Name Role Phone Lurdes Thomas MD Primary Care Provider Reason for Visit Reason Onset Date Comments Chronic Care Conference Provider Overview 12/29/2010 Encounter Details Date Type Department Care Team Description 12/29/2010 Telephone [facility] Lurdes Oh Chronic Care Conference 1440 [facility] MD [place] Provider Overview [place] [address] [facility] [phone] [address] (Wo rk) Social History Tobacco Use [...] filedocumented in this encounter Care Teams Hand Iii Cutter Relationship Specialty Start Date End Date Lurdes Thomas MD PCP - General Internal Medicine 04/12/10 04/03/13 documented as of this encounter
--- OUTSIDE RECORDS SUMMARY | 2021-12-28 18:05 | XMS_ITS | Encounter Summary ---
:1955 Author Organization [place] Address [address] [place] [address]. [place] [address] Care Team Providers Name Role Phone Lurdes Thomas MD Primary Care Provider [phone] Reason for Referral Referral not Required - Closed Specialty Diagnoses / Procedures Referred By Contact Refer red To Contact Diagnoses Cervical radicular pain Francisco Kitchen MD [facility] [address] [place] [address] [facility] [place] [address] AD[address] OFFICE [place] [address] Phone: [phone] Referral ID Status Reason Start Date Expiration Date Visits Requ ested Visits Authorized [id number] Closed 10/25/2011 04/22/2012 1 1 Reason for Visit Reason Comments Back Pain Encounter Details Date Type Department Care Team Description 10/25/2011 Office Visit [facility] Francisco Kitchen DDD (degene rative disc disease), cervical; Uzair Currie MD Cervical radicular pain [address] [place] [address] [place] [address] [facility] [phone] [place] [address] Social History Tobacco Use [...] Body Mass Index 24.6 07/27/2011 10:04 AM 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
--- OUTSIDE RECORDS SUMMARY | 2021-12-28 18:05 | XMS_ITS | Encounter Summary ---
:1955 Author Organization [facility] Address [address] [place] [address]. [place] [address] Care Team Providers Name Role Phone Unavailable Primary Care Provider Unavailable Reason for Visit Reason Onset Date Comments Refill Request 11/06/2013 Pravachol Encounter Details Date Type Department Care Team Description 11/06/2013 Refill [facility] Eag an Martha, Lurdes Refill Request [address] [employer] MD [place] (Pravachol ) [place] [address] [facility] [phone] [address] (Wo rk) Social History [...] of 03/2013-Per patient, he has swtiched to [facility] due to insurance change, no longer seen through the [facility] network. Maame Major RN Telephone Encounter - [...]
--- OUTSIDE RECORDS SUMMARY | 2021-12-28 18:05 | XMS_ITS | Encounter Summary ---
:1955 Author Organization [place] Address [address] [place] [address]. [place] [address] Care Team Providers Name Role Phone Unavailable Primary Care Provider Unavailable Reason for Visit Reason Onset Date Comments Outreach 04/04/2013 Preventative health screening Encounter Details Date Type Department Care Team Description 04/04/2013 Telephone [facility] [place] Lurdes Rojas Outreach (Preventative 1440 [facility] MD [place] health screening) [place] [address] [facility] Surya [employer] [phone] [address] (Wo rk) Social History Tobacco Use [...] Comments: Per patient, he has swtiched to [facility] due to insurance change, [facility]. Outreach Frame Changer Charanjit Amaro RAFT ENGINE MECHANIC OVERHAUL documented in this encounter Plan of Treatment Not on filedocumented as of this encounter Visit Diagnoses Not on filedocumented in this encounter
--- OUTSIDE RECORDS SUMMARY | 2021-12-28 18:05 | XMS_ITS | Encounter Summary ---
:1955 Author Organization [place] Address [address] [place] [address]. [place] [address] Care Team Providers Name Role Phone Lurdes Thomas MD Primary Care Provider [phone] Reason for Visit Reason Onset Date Comments Musculoskeletal Problem 07/13/2010 Muscle aches and weakness Encounter Details Date Type Department Care Team Description 07/13/2010 Telephone [facility] Lurdes Thomas Musculosk eletal Problem Uzair Laughlin MD (Muscle aches and [address] [facility] weakness) [place] [address] [facility] [phone] [address] [place], [place] [address] Social History Tobacco Use [...] - Lurdes Laughlin - 07/16/2010 12:46 PM RAIL TRACK MAINTAINER Called and discussed with patient. Previously on [...] be evaluated. Lurdes Laughlin MD Internal Medicine/Pediatrics TRACK MAINTAINER Telephone Encounter - Lurdes Laughlin - 07/15/2010 4:14 PM RAIL TRACK MAINTAINER Attempted again to call pt and at home and on cell. Left a message on cell. Asked pt to call or willtry back tomorrow. Lurdes Laughlin MD Internal Medicine/Pediatrics TRACK MAINTAINER Telephone Encounter - Lurdes Laughlin - 07/15/2010 12:41 PM RAIL TRACK MAINTAINER Attempted to call patient to follow-up. Left a message at home. Will call back later. Lurdes Laughlin MD Internal Medicine/Pediatrics TRACK MAINTAINER Telephone Encounter - Lurdes Laughlin - 07/13/2010 3:38 PM RAIL TRACK MAINTAINER Agree with the above. Ok for trial off simvastatin, but should also talk with Neurologist. II will call Andrew on . Thanks! Lurdes Laughlin MD Internal Medicine/Pediatrics TRACK MAINTAINER Telephone Encounter - Maki Major - 07/13/2010 [...] be reached until . 's number is [phone]. Maame Major RN TRACK MAINTAINER documented in this encounter Plan of Treatment Not on filedocumented as of this encounter Visit Diagnoses Not on filedocumented in this encounter Care Teams File System Installer Relationship Specialty Start Date End Date Lurdes Thomas MD PCP - General Internal Medicine 04/12/10 04/03/13 documented as of this encounter
--- OUTSIDE RECORDS SUMMARY | 2021-12-28 18:05 | XMS_ITS | Encounter Summary ---
:1955 Author Organization [place] Address [address] [place] [address]. [place] [address] Care Team Providers Name Role Phone Lurdes Thoams MD Primary Care Provider [phone] Reason for Visit Reason Onset Date Comments Refill Request 04/11/2011 pravastatin Encounter Details Date Type Department Care Team Description 04/11/2011 Refill [facility] Lurdes Rojas Refill Request 1440 [facility] MD [place] (pravastatin) [place] [address] [facility] [phone] [address] (Wo rk) Social History Tobacco Use [...] labs letter sent. Received refill request from [facility] for pravastatin. Last Office Visit R/T Diagnosis: [...] comparison chart: [facility] CoA REDUCTASE INHIBITORS (STATINS) RD WASTE HANDLER documented in this encounter Plan of Treatment Not on filedocumented as of this encounter Visit Diagnoses Diagnosis Hyperlipidemia LDL goal < 130 - Primary Other and unspecified hyperlipidemia documented in this encounter Care Teams Pricing Supervisor Relationship Specialty Start Date End Date Lurdes Thomas MD PCP - General Internal Medicine 04/12/10 04/03/13 documented as of this encounter
--- OUTSIDE RECORDS SUMMARY | 2021-12-28 18:05 | XMS_ITS | Encounter Summary ---
:1955 Author Organization [place] Address [address] [place] [address]. [place] [address] Care Team Providers Name Role Phone Lurdes Thomas MD Primary Care Provider [phone] Encounter Details Date Type Department Care Team Description 06/11/2014 Radiant Appointment [facility] Lurdes Thomas (shortness of Uzair Laughlin MD breath) [address] [facility] [phone] [address] [phone] [place] [address] Social History Tobacco Use Types [...] Associated Diagnosis Comme nts XR CHEST 2 VIEWS Routine 06/11/2014 8:52 AM SOB (shortness of Results for this CONTROL INSPECTOR breath) procedure are i n the results section. documented in this encounter Results XR Chest 2 Views (06/11/2014 8:52 AM CONTROL INSPECTOR) Anatomical Region Laterality Modality Chest Computed Radiography Specimen (Source) Anatomical Location Collection Method / Collectio n Time Received Time / Laterality Volume Impressions 06/11/2014 9:24 AM CONTROL INSPECTOR IMPRESSION: ??Negative. APOLONIA PACE MD Narrative 06/11/2014 9:24 AM CONTROL INSPECTOR XR CHEST 2 VW ??06/11/2014 8:52 AM [...] breath documented in this encounter Care Teams Police Communications Operator Relationship Specialty Start Date End Date Lurdes Thomas MD PCP - General Internal Medicine 06/11/14 12/16/20 documented as of this encounter
--- OUTSIDE RECORDS SUMMARY | 2021-12-28 18:05 | XMS_ITS | Encounter Summary ---
:1955 Author Organization [place] Address [address] [place] [address]. [place] [address] Care Team Providers Name Role Phone Lurdes Thomas MD Primary Care Provider Reason for Visit Reason Onset Date Comments Medication Request 10/24/2011 robaxin Encounter Details Date Type Department Care Team Description 10/24/2011 Telephone [facility] [place] Lurdes Rojas Medication Request 1440 [facility] MD [place] (robaxin) [place] [address] [facility] [phone] [address] (Wo rk) Social History Tobacco Use [...] on filedocumented in this encounter Care Teams Train Operations Manager Relationship Specialty Start Date End Date Lurdes Thomsa MD PCP - General Internal Medicine 04/12/10 04/03/13 documented as of this encounter
--- OUTSIDE RECORDS SUMMARY | 2021-12-28 18:05 | XMS_ITS | Encounter Summary ---
:1955 Author Organization [place] Address [address] [place] [address]. [place] [address] Care Team Providers Name Role Phone Lurdes Thomas MD Primary Care Provider [phone] Encounter Details Date Type Department Care Team Description 03/15/2011 Hospital Encounter [facility] Lurdes Thomas of [facility] MD [place] extremity, right [address] [facility] [address] [place] [address] [place] [address] Social History Tobacco Use Types [...] limb documented in this encounter Care Teams Structural Steel Shop Supervisor Relationship Specialty Start Date End Date Lurdes Thomas MD PCP - General Internal Medicine 04/12/10 04/03/13 documented as of this encounter
== END 2021-12-07 14:17 | disposition home or self-care (01) ==
PROVIDERS: PCP Family Medicine; Visit Provider Family Medicine
DX: E53.8 Deficiency of other specified B group vitamins (principal); E55.9 Vitamin D deficiency, unspecified; E78.5 Hyperlipidemia, unspecified; D64.9 Anemia, unspecified; G20 Parkinson's disease; Z93.2 Ileostomy status
CPT/HCPCS: 80053; 80061; 82306; 82607; 82728

== ENCOUNTER 2021-12-16 10:50 | Outpatient (CLI) | payer BC, SELFPAY ==
--- NOTE | 2021-12-16 12:19 | W.ANESCHARGE ---
Anesthesia Charges Start Date/Time Anesthesia Start Date: 12/16/21 Anesthesia Start Time: 11:45 Stop Date/Time Anesthesia Stop Date: 12/16/21 Anesthesia Stop Time: 12:20 Summary Emergency: No
--- NOTE | 2021-12-16 12:21 | W.ANESCHARGE ---
Anesthesia Charges Start Date/Time Anesthesia Start Date: 12/16/21 Anesthesia Start Time: 11:45 Stop Date/Time Anesthesia Stop Date: 12/16/21 Anesthesia Stop Time: 12:20 Summary Emergency: No
== END 2021-12-16 10:51 | disposition home or self-care (01) ==
PROVIDERS: PCP Family Medicine; Visit Provider Surgery
DX: Z12.11 Encounter for screening for malignant neoplasm of colon (principal); K57.30 Diverticulosis of large intestine without perforation or abscess without bleeding; K63.89 Other specified diseases of intestine
CPT/HCPCS: 45378; 811; 812

== ENCOUNTER 2022-01-10 06:05 | Inpatient (IN) | payer BC, SELFPAY ==
[2022-01-10] VITALS (27 sets, daily range): BP systolic 108–141; BP diastolic 67–83; PULSE 71–91; RESP 12–18; TEMP 36.2–37; O2SAT 92–100; BMI 21.2
[2022-01-10] MEDS: LACTATED RINGERS 1000 ML 1,000 ML 100 ML IV (07:01)
[2022-01-10] MEDS: SODIUM CHLORIDE 0.9 % (FLUSH) 10 ML SYRINGE IVF (07:05)
[2022-01-10] MEDS: ERTAPENEM 1 GM in 0.9 % SODIUM CHLORIDE Mini-bag 100 ML IVPB (07:36)
--- NOTE | 2022-01-10 09:57 | PM.GSPRC ---
Operative Note Date of procedure: 01/10/22 Type of Procedure: 1. End ileostomy takedown with primary Ileocolic anastomosis. Procedure Description: After discussing the risks and benefits of the procedure, the patient signed informed consent.? Patient's deep brain stimulator was turned off prior to bringing him to the operating room. The patient was brought to the operating room and placed on the operating table in supine position.? Care was taken to pad the patient's pressure points.?? The patient was then intubated by anesthesia.? Patient's end ileostomy opening was oversewn with a [id number] Vicryl stitch. A Koo catheter was placed under sterile conditions.? The operative site was then prepped and draped in the usual sterile fashion.? A time-out was then performed. The skin incision was made with cautery around the end ileostomy and patient's mucous fistula. This was done with cautery. Dermis and subcutaneous tissues were dissected in a cylinder like fashion around the end ileostomy and mucous fistula, which were sutured together. The large intestine was located superiorly and end ileostomy was inferiorly. Care was taken to avoid injury to the small or large intestine. Dissection was carried down to the anterior fascia. The transverse colon and distal ileum were mobilized of the anterior fascia with cautery and with Metzenbaum scissors. Adhesions were lysed circumferentially until the end ileostomy and transverse mucous fistula, which were sutured together, were completely free from the anterior fascia. The intra-abdominal wall around this fascial opening was palpated, and no significant adhesions were noted. The adhesions between the transverse colon and end ileostomy were lysed with cautery. Hemostasis was achieved with cautery and Vicryl stick ties. Omentum was adherent to the transverse colon and those adhesions were taken down with cautery. A blue load of AZUCENA stapler was then used to staple off the open ends of the end ileostomy and mucous fistula. This was done with 2 staple loads. The transverse colon and terminal ileum were then lined up for primary anastomosis. A colotomy was made with cautery 1 cm from the colon staple line, and one end of AZUCENA stapler was placed into the lumen of the transverse colon. Similarly, an enterotomy was made approximately 1 cm from the staple line with cautery. The other part of the AZUCENA stapler was then placed into the small bowel lumen. The anti mesenteric sides of the transverse colon and terminal ileum were then aligned to create [id number] functional end-to-end anastomosis. The anastomosis was created. The anastomosis was examined intraluminally, and no bleeding was noted from the staple line in the lumen. The common enterotomy was then closed with interrupted 3-0 silk pop-off Lambert sutures. A crotch stitch was placed with 3-0 silk suture. The anastomosis was palpated and was patent. The mesenteric defect was then closed with a running 3-0 Vicryl suture. The surgeon and assistants changed their gloves and all of the previously placed towels and dirty instruments were removed from the field. The specimen was passed off the field and sent to pathology. We then proceeded with incisional closure. Anastomosis was pushed into the abdomen and covered by omentum. Peritoneum and posterior fascia was closed with 2 running 0-0 Vicryl sutures. The anterior fascia was mobilized off the rectus muscle to allow for tension-free closure. There was no evidence of a peristomal hernia. The anterior fascia was then closed with 2 running 0-0 Maxon sutures. The incision was irrigated with normal saline. Local anesthetic was injected into the anterior fascia. Subcutaneous fat was reapproximated medially and laterally at the site of the incision. This was done loosely. Dermis was then reapproximated in the medial half of the incision with Vicryl sutures. The medial half of the incision was then stapled with anni. The lateral half of the incision was left open and was packed with iodoform Nu Gauze. The incision was closed with 4 x 4 gauze and ABD pad. This was secured in place with tape. ? All counts were correct at the end of the case. Patient tolerated this procedure well and was transferred to PACU in stable condition. ? Findings: Minimal adhesions of end ileostomy and transverse colon to the abdominal wall were palpated. Anesthesia: GETA Surgeon: Kelli Mays MD Estimated blood loss (mL): 5 Condition: stable Disposition: PACU
--- NOTE | 2022-01-10 10:20 | W.ANESCHARGE ---
Anesthesia Charges Start Date/Time Anesthesia Start Date: 01/10/22 Anesthesia Start Time: 07:18 Stop Date/Time Anesthesia Stop Date: 01/10/22 Anesthesia Stop Time: 10:16 Summary Emergency: No
[2022-01-10] MEDS: LACTATED RINGERS 1000 ML 1,000 ML 35 ML IV (10:25)
--- NOTE | 2022-01-10 10:32 | W.ANESCHARGE ---
Anesthesia Charges Start Date/Time Anesthesia Start Date: 01/10/22 Anesthesia Start Time: 07:18 Stop Date/Time Anesthesia Stop Date: 01/10/22 Anesthesia Stop Time: 10:16 Summary Emergency: No
[2022-01-10] MEDS: fentaNYL 100 MCG/2 ML inj 50 MCG IVP (10:37)
[2022-01-10] MEDS: LACTATED RINGERS 1000 ML 1,000 ML 75 ML IV ×2 (11:15→21:06)
[2022-01-10] MEDS: HYDROmorphone 0.5 mg/0.5 ml inj IVP ×2 (11:41→16:25)
--- NOTE | 2022-01-10 15:17 | PC.NURSE ---
Pt. alert and oriented x4. Rated pain 5/10 PRN dilauded administered w/relief. at bedside. Pt. pleasant and cooperative. Koo, patent and draining. Tolerating clears, denies any N/V/Dizziness. Pt. has dressing on adm, C/D/I. vitals stable.
[2022-01-10] MEDS: OMEPRAZOLE 20 MG CAPSULE DR 40 MG PO (21:00)
[2022-01-11] MEDS: HYDROmorphone 0.5 mg/0.5 ml inj IVP ×2 (00:39→04:15)
[2022-01-11] MEDS: ONDANSETRON 2 MG/ML inj IVP ×3 (00:40→16:21)
[2022-01-11 02:42] VITALS: BP 151/83; PULSE 82; RESP 16; TEMP 36.8; O2SAT 96
--- NOTE | 2022-01-11 05:51 | PC.NURSE ---
Shift 7p-7a: Pt. AOx4, following commands, VSS on RA. Pt. dangled on side of bed last night at 2200, but refused to assistant chief engineer place as pt. became nauseous. Pt. able to turn in bed w/o assistance. Pt.'s Koo catheter removed yesterday, and pt. had minimal urine output of 250mL/shift in urinal. Bladder scan showed urine retention of 250mL, supervisor propellant charge loading Sacha notified. Pt. was tolerating PO sips/chips until midnight when pt. became nauseous, PRN zofran adminstered. PRN dilauded given for pain control. Abdominal surgical site dressing C/D/I, abdomen distended and tender. Pt. belching with relief, no vomiting noted during shift. Pt. continuing to receive LR @ 75mL/hr as pt. unable to tolerate PO intake adequately. Dressing changes daily, wet-to-dry and covered with abdominal pad and gauze. YAZMIN's/SCD's on, offered pt. removal for one hour. Asked pt. to stand at bedside again but pt. refused at this time, states I am still feeling nauseous. Plan for more mobility today, nausea and pain control, and address UOP.
[2022-01-11 07:00] VITALS: BP 156/91; PULSE 80; RESP 16; TEMP 36.8; O2SAT 97
[2022-01-11 07:33] LABS: Chloride* 96 mmol/L (96-114)
[2022-01-11 07:34] LABS: Sodium* 133 mmol/L (135-149)
[2022-01-11 07:36] LABS: Creatinine* 0.7 mg/dL (0.5-1.5); Est. Creatinine Clearance* 77.08; Estimated Glomerular Filt Rate 102 ml/min
[2022-01-11 07:37] LABS: Blood Urea Nitrogen* 17 mg/dL (7-30); Calcium* 8.8 mg/dL (8.4-10.6); Carbon Dioxide* 31 mmol/L (20-32); Glucose* 135 mg/dL (60-115)
[2022-01-11 07:38] LABS: Potassium* 4.4 mmol/L (3.6-5.1)
[2022-01-11 07:43] LABS: Hemoglobin* 14.1 gm/dL (13.5-17.5)
[2022-01-11] MEDS: ERTAPENEM 1 GM in 0.9 % SODIUM CHLORIDE Mini-bag 100 ML IVPB (08:47)
[2022-01-11] MEDS: ASCORBIC ACID 500 MG TABLET 250 MG PO (09:02)
[2022-01-11] MEDS: CYANOCOBALAMIN (VITAMIN B-12) 500 MCG TABLET 1000 MCG PO (09:02)
[2022-01-11] MEDS: OMEPRAZOLE 20 MG CAPSULE DR 40 MG PO ×2 (09:03→21:27)
[2022-01-11] MEDS: CITALOPRAM HYDROBROMIDE 20 MG TABLET 10 MG PO (09:04)
--- NOTE | 2022-01-11 10:06 | PM.GSPN ---
Subjective Subjective Date Seen: 01/11/22 Interval history: Patient reporting nausea overnight and this morning, not helped with IV Zofran. Denies any emesis. Not yet passing gas. Not feeling hungry. Was able to urinate this morning. Has not yet gotten out of bed or walk the halls. Exam Narrative: Exam Narrative: General: Alert and oriented, no acute distress. Lying comfortably in bed. Respiratory: Equal breath rise, maintained on room air CV: Regular rhythm rate, well perfused Abdomen: Mild distention, soft, appropriately tender over incision sites. Dressing was taken down with anni in place. The lateral aspect of the incision is left open with packing removed, no concern for infection. Neuro: Rest tremor of lower extremities. Const: Vital Signs, click to edit/add: Vital Signs - 24 hr 01/10/22 10:12 01/10/22 10:15 01/10/22 10:20 Temperature 97.2 F L Pulse Rate 81 74 73 Pulse Rate [Right Pulse Oximeter] Respiratory Rate 12 16 16 Blood Pressure 130/76 126/75 133/77 Blood Pressure [Le ft Arm] Pulse Oximetry 98 100 100 Oxygen Delivery Me thod Aerosol Mask Aerosol Mask Aerosol Mask Oxygen Flow Rate 10 Fraction of Inspir ed Oxygen 01/10/22 10:25 01/10/22 10:30 01/10/22 10:35 Temperature 97.6 F Pulse Rate 72 74 73 Pulse Rate [Right Pulse Oximeter] Respiratory Rate 16 16 16 Blood Pressure 122/77 129/78 131/80 Blood Pressure [Le ft Arm] Pulse Oximetry 100 99 99 Oxygen Delivery Me thod Aerosol Mask Aerosol Mask Aerosol Mask Oxygen Flow Rate 10 10 10 Fraction of Inspir ed Oxygen 40 01/10/22 10:40 01/10/22 10:45 01/10/22 10:50 Temperature Pulse Rate 71 71 71 Pulse Rate [Right Pulse Oximeter] Respiratory Rate 18 13 13 Blood Pressure 125/76 123/76 121/74 Blood Pressure [Le ft Arm] Pulse Oximetry 98 97 98 Oxygen Delivery Me thod Aerosol Mask Aerosol Mask Aerosol Mask Oxygen Flow Rate 5 5 5 Fraction of Inspir ed Oxygen 25 25 25 01/10/22 10:55 01/10/22 11:00 01/10/22 11:10 Temperature 97.7 F 97.4 F L Pulse Rate 80 75 78 Pulse Rate [Right Pulse Oximeter] Respiratory Rate 15 16 18 Blood Pressure 114/77 117/76 Blood Pressure [Le ft Arm] 111/68 Pulse Oximetry 97 94 Oxygen Delivery Me thod Room Air Room Air Room Air Oxygen Flow Rate Fraction of Inspir ed Oxygen 01/10/22 11:10 01/10/22 11:25 01/10/22 12:00 Temperature 97.4 F L 97.1 F L 97.7 F Pulse Rate Pulse Rate [Right Pulse Oximeter] 78 77 78 Respiratory Rate 18 18 18 Blood Pressure Blood Pressure [Le ft Arm] 111/68 108/70 113/68 Pulse Oximetry 96 92 92 Oxygen Delivery Me thod Room Air Room Air Room Air Oxygen Flow Rate Fraction of Inspir ed Oxygen 01/10/22 11:45 01/10/22 12:15 01/10/22 12:30 Temperature 97.7 F 97.7 F Pulse Rate Pulse Rate [Right Pulse Oximeter] 77 81 83 Respiratory Rate 18 18 18 Blood Pressure Blood Pressure [Le ft Arm] 111/67 110/67 121/72 Pulse Oximetry 96 93 95 Oxygen Delivery Me thod Room Air Room Air Room Air Oxygen Flow Rate Fraction of Inspir ed Oxygen 01/10/22 13:00 01/10/22 14:00 01/10/22 11:06 Temperature 97.7 F 98.1 F 97.4 F L Pulse Rate Pulse Rate [Right Pulse Oximeter] 82 85 85 Respiratory Rate 18 18 18 Blood Pressure Blood Pressure [Le ft Arm] 127/75 122/70 111/68 Pulse Oximetry 95 93 93 Oxygen Delivery Me thod Room Air Room Air Room Air Oxygen Flow Rate Fraction of Inspir ed Oxygen 01/10/22 15:00 01/10/22 16:00 01/10/22 17:00 Temperature 97.9 F 98.1 F Pulse Rate Pulse Rate [Right Pulse Oximeter] 86 91 87 Respiratory Rate 16 18 16 Blood Pressure Blood Pressure [Le ft Arm] 127/81 139/81 133/77 Pulse Oximetry 94 96 94 Oxygen Delivery Me thod Room Air Room Air Room Air Oxygen Flow Rate Fraction of Inspir ed Oxygen 01/10/22 18:00 01/10/22 19:00 01/10/22 23:00 Temperature 98.2 F Pulse Rate Pulse Rate [Right Pulse Oximeter] 91 88 85 Respiratory Rate 16 16 16 Blood Pressure Blood Pressure [Le ft Arm] 136/76 141/81 H Pulse Oximetry 96 97 Oxygen Delivery Me thod Room Air Room Air Oxygen Flow Rate Fraction of Inspir ed Oxygen 01/10/22 23:00 01/11/22 02:42 Temperature 98.6 F 98.2 F Pulse Rate Pulse Rate [Right Pulse Oximeter] 85 82 Respiratory Rate 16 16 Blood Pressure Blood Pressure [Le ft Arm] 132/78 151/83 H Pulse Oximetry 97 96 Oxygen Delivery Me thod Room Air Room Air Oxygen Flow Rate Fraction of Inspir ed Oxygen Labs/Imaging Labs Labs: No new labs. Imaging Imaging: No new imaging. Progress Note: A&P Assessment and plan (1) Status post ileostomy: Status: Acute Assessment and Plan: Patient is postop day 1 loop ileostomy takedown. Vital signs stable overnight and nontoxic in appearance. Patient is reporting nausea, with no evidence of return of bowel function. Will place patient to NPO status, okay for sips and ice chips. In addition to IV Zofran will add Compazine, patient has been made aware that this can worsen his parkinsonian symptoms. Will encourage ambulation today. -NPO, okay for sips and ice chips -continue IV fluids -p.o. and IV pain meds as needed, use sparingly -IV Zofran and Compazine p.r.n. for nausea -encourage ambulation, SCDs for DVT prophylaxis. Will add Lovenox to start this evening. -restarted patient's home meds of carbidopa/levodopa, amantadine for Parkinson disease.
[2022-01-11 11:00] VITALS: BP 145/86; PULSE 75; RESP 16; TEMP 36.8; O2SAT 97
[2022-01-11] MEDS: PROCHLORPERAZINE 5 MG/ML VIAL IV (11:13)
[2022-01-11] MEDS: LACTATED RINGERS 1000 ML 1,000 ML 75 ML IV (11:13)
[2022-01-11] MEDS: HYDROCODONE-ACETAMIN 5-325 MG 1 TAB PO (13:07)
[2022-01-11 15:25] VITALS: BP 154/83; PULSE 78; RESP 16; TEMP 37.4; O2SAT 98
--- NOTE | 2022-01-11 15:36 | PC.NURSE ---
Pt. alert and oriented x4 Pleasant and cooperative. VSS on RA. Pt. up to chair x2 and ambulated to bathroom. tolerated well. Pt. still nauseous throughout the day, PRN zofran and compazine administered. see eMAR. PRN Elizabeth administered. Abdominal surgical site dressing C/D/I, changed at 1030 wet to dry daily and covered w/ abdominal pad. Pt. belching with relief, no vomiting noted during shift. Pt. continuing to receive LR @ 75mL/hr as pt. unable to tolerate PO intake adequately. YAZMIN's/SCD's on, offered pt. removal for one hour.
[2022-01-11 19:45] VITALS: BP 160/83; PULSE 80; RESP 16; TEMP 36.9; O2SAT 94
[2022-01-11] MEDS: ENOXAPARIN 40 MG/0.4 ML INJ SUBCUT (21:28)
--- NOTE | 2022-01-11 22:30 | PC.NURSE ---
Shift note: The pt has been very pleasant and cooperating. He has been alert and oriented to self, place, and situation. The abdominal wound has been intact with with small old drainage. The pt was reporting moderate nausea without vomiting- Zofran IV was given with good improvements. Lewis sounds active in all 4 quadrants- denied passing flatus. The pt has been on sips of clear - only C/O minor nausea. The pt ambulated in the room ( 1-assist with a gait belt and walker) and he sat in the chair for about 2 hours this evening. 500 cc urine out put this shift. The pt appeared without any distress.
[2022-01-12 01:00] VITALS: BP 160/87; PULSE 75; RESP 16; TEMP 36.9; O2SAT 97
[2022-01-12] MEDS: LACTATED RINGERS 1000 ML 1,000 ML 75 ML IV ×2 (01:09→15:22)
[2022-01-12] MEDS: ONDANSETRON 2 MG/ML inj IVP (01:24)
[2022-01-12 05:00] VITALS: BP 168/88; PULSE 76; RESP 20; TEMP 36.9; O2SAT 98
[2022-01-12 07:00] VITALS: BP 156/80; PULSE 76; RESP 18; TEMP 37; O2SAT 97
--- NOTE | 2022-01-12 07:02 | PC.NURSE ---
END OF SHIFT NOTE: PT PLEASANT AND COOPERATIVE. VSS ON RA. AFEBRILE. PT DENIES CP AND SOB. PT C/O NAUSEA @0125 THAT WAS RELIEVED WITH ZOFRAN. INCISION DRESSING HAS SEROSANGUINEOUS DRAINAGE THAT WAS OUTLINED. TOLERATING CLEAR SIPS WELL. AMBULATES WITH WALKER, GB, A1. MOVES WITH A SHUFFLE GAIT. DX OF PARKINSON'S.
[2022-01-12] MEDS: ERTAPENEM 1 GM in 0.9 % SODIUM CHLORIDE Mini-bag 100 ML IVPB (08:34)
[2022-01-12] MEDS: OMEPRAZOLE 20 MG CAPSULE DR 40 MG PO ×2 (08:38→20:42)
[2022-01-12] MEDS: ASCORBIC ACID 500 MG TABLET 250 MG PO (08:38)
[2022-01-12] MEDS: CITALOPRAM HYDROBROMIDE 20 MG TABLET 10 MG PO (08:39)
[2022-01-12] MEDS: CYANOCOBALAMIN (VITAMIN B-12) 500 MCG TABLET 1000 MCG PO (08:40)
--- NOTE | 2022-01-12 08:44 | PM.GSPN ---
Subjective Subjective Date Seen: 01/12/22 Interval history: Patient is doing okay postoperatively. He has a lot of burping and had a lot of nausea yesterday. No vomiting. No passing gas. He ambulated twice yesterday. He tolerated some clears yesterday. Exam Narrative: Exam Narrative: Abdomen: Soft, mildly distended, minimally tender to palpation in the left lower quadrant, right paramedian incision with intact anni with no surrounding erythema. There is serosanguineous drainage on Nu Gauze. Const: Vital Signs, click to edit/add: Vital Signs - 24 hr 01/11/22 11:00 01/11/22 15:25 01/11/22 15:25 Temperature 98.3 F 99.4 F Pulse Rate [Right Pulse Oximeter] 75 78 78 Respiratory Rate 16 16 16 Blood Pressure [Le ft Arm] 145/86 H 154/83 H Pulse Oximetry 97 98 Oxygen Delivery Me thod Room Air Room Air 01/11/22 19:45 01/12/22 01:00 01/12/22 01:00 Temperature 98.5 F 98.4 F Pulse Rate [Right Pulse Oximeter] 80 75 75 Respiratory Rate 16 16 16 Blood Pressure [Le ft Arm] 160/83 H 160/87 H Pulse Oximetry 94 97 Oxygen Delivery Me thod Room Air Room Air 01/12/22 05:00 Temperature 98.4 F Pulse Rate [Right Pulse Oximeter] 76 Respiratory Rate 20 Blood Pressure [Le ft Arm] 168/88 H Pulse Oximetry 98 Oxygen Delivery Me thod Room Air Progress Note: A&P Assessment and plan (1) Status post reversal of ileostomy: Status: Acute Assessment and Plan: 66-year-old male s/p end ileostomy takedown POD 2. Patient can advance to full liquids if desired but discussed with him to advance slowly and take small amounts throughout the day. His abdomen is mildly distended he is not passing gas. Patient's packing will be changed later today with his to make sure that she can do it at home. Patient will continue ambulating several times a day. Patient is on Lovenox for DVT prophylaxis.
[2022-01-12 10:53] VITALS: BP 160/80; PULSE 79; RESP 18; TEMP 37; O2SAT 97
[2022-01-12 15:00] VITALS: BP 161/90; PULSE 77; RESP 20; TEMP 37.1; O2SAT 97
--- NOTE | 2022-01-12 16:02 | PC.NURSE ---
Pt. alert and oriented x4 Pleasant and cooperative. VSS on RA. Pt. up to chair and ambulated in hallway. tolerated well. Pt. denies nausea. Pt. denied pain. Abdominal surgical site dressing C/D/I, changed at 0925 wet to dry daily and covered w/ abdominal pad. Pt's did the dressing change w/nurse to assist. Pt. continues to have hicupps throughout the day. no vomiting noted during shift. Pt. continuing to receive LR @ 75mL/hr. YAZMIN's/SCD's on, offered pt. removal for one hour. Pt. voiding well
[2022-01-12 19:00] VITALS: BP 154/80; PULSE 74; RESP 20; TEMP 37; O2SAT 97
[2022-01-12] MEDS: PRAVASTATIN SODIUM 20 MG TABLET 80 MG PO (20:42)
[2022-01-12] MEDS: ENOXAPARIN 40 MG/0.4 ML INJ SUBCUT (20:43)
--- NOTE | 2022-01-12 23:52 | PC.NURSE ---
Pt denies pain, bowel hypoactive, denies passing gas. Occasional hiccups. Up walking in mark x on shift with gait belt, walker, and SBA. , Natasha, will be in for dressing change a.m.
[2022-01-13] VITALS (9 sets, daily range): BP systolic 149–162; BP diastolic 84–95; PULSE 68–79; RESP 16–20; TEMP 36.6–37.7; O2SAT 96–100
[2022-01-13] MEDS: LACTATED RINGERS 1000 ML 1,000 ML 75 ML IV (03:27)
[2022-01-13 06:23] LABS: Basophils Absolute Auto 0.02 K/uL (0.00-0.30); Basophils Percent Auto 0.4 % (0.0-3.0); Eosinophils Absolute Auto 0.04 K/uL (0.00-0.50); Eosinophils Percent Auto 0.7 % (0.0-7.0); Hematocrit 39.2 % (37.0-53.0); Hemoglobin* 13.3 gm/dL (13.5-17.5); Immature Granulocytes Abs Auto 0.03 K/uL (0.00-0.30); Lymphocytes Percent Auto 11.3 % (20-44); Mean Corpuscular HGB Conc 34 gm/dL (32-36); Mean Corpuscular Hemoglobin 30 pg (26-34); Mean Corpuscular Volume 88 fL (80-100); Monocytes Percent Auto 13.5 % (0.0-11.0); Neutrophils Percent Auto 73.6 % (42.0-72.0); Platelet Count* 208 K/uL (140-440); RDW Coefficient of Variation % 13.1 % (11.5-15.5); Red Blood Count 4.44 m/uL (4.30-5.90); White Blood Count* 5.47 K/uL (4.50-11.00)
--- NOTE | 2022-01-13 06:48 | PC.NURSE ---
END OF SHIFT NOTE: PT PLEASANT AND COOPERATIVE. PT USED URINAL OVERNIGHT. ABDOMINAL INCISION DRESSING IN PLACE WITH SCANT AMOUNT OF SEROSANGUINEOUS DRAINAGE THAT WAS CIRCLED. PT DENIES CP, SOB, N/V. VSS ON RA; AFEBRILE. PT REFUSED THE USE OF SCD?S NOC.
[2022-01-13 07:05] LABS: Slide Review Reflex No
[2022-01-13] MEDS: CYANOCOBALAMIN (VITAMIN B-12) 500 MCG TABLET 1000 MCG PO (09:25)
[2022-01-13] MEDS: ASPIRIN 81 MG TAB.CHEW PO (09:25)
[2022-01-13] MEDS: OMEPRAZOLE 20 MG CAPSULE DR 40 MG PO ×2 (09:25→21:22)
[2022-01-13] MEDS: ASCORBIC ACID 500 MG TABLET 250 MG PO (09:26)
[2022-01-13] MEDS: CITALOPRAM HYDROBROMIDE 20 MG TABLET 10 MG PO (09:26)
--- NOTE | 2022-01-13 10:36 | PM.GSPN ---
Subjective Subjective Date Seen: 01/13/22 Interval history: Patient is doing well. He continues to have hiccups but they were reduced today in the morning. He ambulated 4 times yesterday. He denies any nausea vomiting. He does not complain of abdominal pain and has not been taking pain medication. He does not think he passed gas. Exam Narrative: Exam Narrative: Abdomen: Soft, mildly distended, not tender to palpation, right paramedian incision with intact anni and packing in place. There is no surrounding erythema. There is small amount of serosanguineous drainage noted on ABD pad. Const: Vital Signs, click to edit/add: Vital Signs - 24 hr 01/12/22 10:53 01/12/22 15:00 01/12/22 15:00 Temperature 98.6 F 98.8 F Pulse Rate [Right Pulse Oximeter] 79 77 77 Respiratory Rate 18 20 20 Blood Pressure [Le ft Arm] 160/80 H 161/90 H Pulse Oximetry 97 97 Oxygen Delivery Me thod Room Air Room Air 01/12/22 19:00 01/13/22 00:30 01/13/22 00:30 Temperature 98.6 F 98.2 F Pulse Rate [Right Pulse Oximeter] 74 68 68 Respiratory Rate 20 18 18 Blood Pressure [Le ft Arm] 154/80 H 155/91 H Pulse Oximetry 97 100 Oxygen Delivery Me thod Room Air Room Air 01/13/22 03:30 01/13/22 09:20 Temperature 98.4 F 97.8 F Pulse Rate [Right Pulse Oximeter] 72 70 Respiratory Rate 16 16 Blood Pressure [Le ft Arm] 162/89 H 153/84 H Pulse Oximetry 97 97 Oxygen Delivery Me thod Room Air Room Air Progress Note: A&P Assessment and plan (1) Status post reversal of ileostomy: Status: Acute Plan 66-year-old male s/p end ileostomy takedown POD 3. I discussed with the patient that I would continue with full liquid diet until he starts passing gas. Patient can take Tylenol or ibuprofen for pain control. Overall patient is doing great and working with therapies. Will plan for him to discharge home when he has return of bowel function. At discharge patient will be sent home on MiraLax. His daily dose of MiraLax is 1 packet a day and that is the plan for discharge. I will not prescribe any pain medications at discharge since he is not taking any in the hospital. Patient's has been doing dressing changes in patient and will do wet to dry packings with Nu Gauze daily at home.
[2022-01-13] MEDS: ENOXAPARIN 40 MG/0.4 ML INJ SUBCUT (18:24)
--- NOTE | 2022-01-13 18:52 | PC.NURSE ---
End of shift-- Very pleasant and cooperative, alert and oriented patient. VSS and pt is afebrile. SPO2 maintained >90% on RA. He denied any pain today. Supervised dressing change by at bedside this morning and is now intact with minimal serous drainage noted and outlined. LS CTA. BS+ x4, though somewhat hypoactive this evening, but pt has still not passed any flatus. He tolerated a full liquid diet and toast today without difficulty. He c/o only some mild nausea and declined intervention for it. He ambulated with SBA, walker and belt in hallway three times today and tolerated it well. was at bedside and appears loving and supportive. Report to oncoming shift.
[2022-01-13] MEDS: PRAVASTATIN SODIUM 20 MG TABLET 80 MG PO (21:22)
[2022-01-14] VITALS (7 sets, daily range): BP systolic 137–157; BP diastolic 84–98; PULSE 77–84; RESP 16–20; TEMP 36.6–37.2; O2SAT 92–98
--- NOTE | 2022-01-14 07:39 | PC.NURSE ---
[id number]: Patient pleasant and cooperative. Denies pain. Denies N/V. A1, walker, GB. Ambulated in halls x1 during shift. Rested well during noc. Tolerating Fulls liquids w/toast. Denies passing flatus but states I think it is getting close though.
[2022-01-14] MEDS: CITALOPRAM HYDROBROMIDE 20 MG TABLET 10 MG PO (10:35)
[2022-01-14] MEDS: ASCORBIC ACID 500 MG TABLET 250 MG PO (10:36)
[2022-01-14] MEDS: OMEPRAZOLE 20 MG CAPSULE DR 40 MG PO ×2 (10:37→21:15)
[2022-01-14] MEDS: CYANOCOBALAMIN (VITAMIN B-12) 500 MCG TABLET 1000 MCG PO (10:37)
--- NOTE | 2022-01-14 11:00 | PM.GSPN ---
Subjective Subjective Date Seen: 01/14/22 Interval history: Andrew's IV was removed last night, but not replaced. He stated he had some nausea yesterday but no nausea today. He does however have hiccups. He passed a very small amount of flatus today but no bowel movement. No concerns about urine output. Exam Narrative: Exam Narrative: General: No acute distress though patient is hiccuping CV: Regular rate and rhythm Respiratory: Clear to auscultation bilaterally Abdomen: Soft though mildly distended. Incision without erythema. Const: Vital Signs, click to edit/add: Vital Signs - 24 hr 01/13/22 16:54 01/13/22 16:00 01/13/22 20:00 Temperature 99.8 F H 99.4 F Pulse Rate [Right Pulse Oximeter] 76 76 79 Respiratory Rate 16 16 18 Blood Pressure [Le ft Arm] 149/90 H 150/95 H Pulse Oximetry 99 97 Oxygen Delivery Me thod Room Air Room Air Oxygen Flow Rate Fraction of Inspir ed Oxygen 01/13/22 23:00 01/14/22 03:00 01/14/22 09:11 Temperature 97.8 F 97.8 F Pulse Rate [Right Pulse Oximeter] 74 77 84 Respiratory Rate 20 20 20 Blood Pressure [Le ft Arm] 155/88 H 156/84 H Pulse Oximetry 96 96 Oxygen Delivery Me thod Room Air Room Air Oxygen Flow Rate 5 Fraction of Inspir ed Oxygen 25 01/14/22 09:11 Temperature 98.9 F Pulse Rate [Right Pulse Oximeter] 84 Respiratory Rate 20 Blood Pressure [Le ft Arm] 153/98 H Pulse Oximetry 97 Oxygen Delivery Me thod Room Air Oxygen Flow Rate Fraction of Inspir ed Oxygen Progress Note: A&P Assessment and plan (1) Status post reversal of ileostomy: Status: Acute (2) Gastroesophageal reflux disease: Problem details: EGD with dilation in the past Status: Acute (3) Obstructive sleep apnea treated with continuous positive airway pressure (CPAP): Problem details: Not using CPAP Status: Chronic (4) Parkinson's disease: Status: Chronic Plan The patient is a 66-year-old male who is postop day 4 status post ileostomy and mucous fistula takedown after undergoing right hemicolectomy for cecal perforation for obstruction due to constipation. I explained to him and his that because he is hiccuping, I want him to back off on oral intake. I did request that his IV be replaced and I will put him on a small amount of maintenance IV fluids until he is having good antegrade bowel function. His did do his dressing change at bedside and did well with this. -continue home meds for Parkinson's. -continue to encourage IS and ambulation -continue Lovenox for DVT prophylaxis.
[2022-01-14] MEDS: LACTATED RINGERS 1000 ML 1,000 ML 50 ML IV (11:09)
[2022-01-14 11:59] LABS: Chloride* 88 mmol/L (96-114); Sodium* 127 mmol/L (135-149)
[2022-01-14 12:00] LABS: Potassium* 4.1 mmol/L (3.6-5.1)
[2022-01-14 12:02] LABS: Creatinine* 0.7 mg/dL (0.5-1.5); Est. Creatinine Clearance* 77.08; Estimated Glomerular Filt Rate 102 ml/min
[2022-01-14 12:03] LABS: Blood Urea Nitrogen* 16 mg/dL (7-30); Carbon Dioxide* 28 mmol/L (20-32); Glucose* 96 mg/dL (60-115); Magnesium* 1.7 mg/dL (1.5-2.6)
[2022-01-14] MEDS: 0.9 % SODIUM CHLORIDE 1000 ml 1,000 ML 75 ML IV (13:37)
[2022-01-14] MEDS: ENOXAPARIN 40 MG/0.4 ML INJ SUBCUT (17:36)
--- NOTE | 2022-01-14 18:52 | PC.NURSE ---
: Pt. tolerating full liquid diet w/out nausea or pain. Dressing changed by pt's , loosely packed wet to dry dressing. Continues to have minimal spot of drainage after dressing change, serosanguinous. Walked in halls w/therapy and staff x3 thus far using walker & SBA. IV placed this morning in R forearm, IVF started LR @ 50cc/hr. Sodium came back at 127, Dr. Vicente updated. Orders for 1,000cc fluid restriction and change IVF to NS @ 75/hr; completed. Pt. afebrile this shift. ADLs completed w/assist of . No BM this shift.
[2022-01-14] MEDS: PRAVASTATIN SODIUM 20 MG TABLET 80 MG PO (21:15)
[2022-01-14 21:56] LABS: Chloride* 91 mmol/L (96-114)
[2022-01-14 21:57] LABS: Potassium* 3.7 mmol/L (3.6-5.1); Sodium* 129 mmol/L (135-149)
[2022-01-14 21:59] LABS: Creatinine* 0.7 mg/dL (0.5-1.5); Est. Creatinine Clearance* 77.08; Estimated Glomerular Filt Rate 102 ml/min
[2022-01-14 22:00] LABS: Blood Urea Nitrogen* 14 mg/dL (7-30); Calcium* 8.7 mg/dL (8.4-10.6); Carbon Dioxide* 29 mmol/L (20-32); Glucose* 86 mg/dL (60-115)
[2022-01-15] MEDS: 0.9 % SODIUM CHLORIDE 1000 ml 1,000 ML 75 ML IV (01:17)
[2022-01-15 04:00] VITALS: BP 146/79; PULSE 79; RESP 16; TEMP 36.6; O2SAT 93
--- NOTE | 2022-01-15 06:24 | PC.NURSE ---
Addendum entered by Nicole Smith RN 01/15/22 06:48: Addendum: Abd dressing found with serosanguineous drainage present @ 1930 assessment. Dressing changed, wound packed wet to dry. Pt tolerated well. Original Note: Shift Note -: Pt pleasant and cooperative, VSS with continued elevated BP as recorded on previous shifts. Denies pain, SOB or dizziness. BS are active in all quads. 1000mL FR is in place, Pt is compliant. PIV is patent and asymptomatic in R forearm with NS running @ 75mL/hr. Urinary output satisfactory. See eMAR for medication administration.
[2022-01-15 07:11] LABS: Chloride* 94 mmol/L (96-114); Potassium* 3.3 mmol/L (3.6-5.1); Sodium* 132 mmol/L (135-149)
[2022-01-15 07:14] LABS: Carbon Dioxide* 26 mmol/L (20-32); Creatinine* 0.7 mg/dL (0.5-1.5); Est. Creatinine Clearance* 77.08; Estimated Glomerular Filt Rate 102 ml/min
[2022-01-15 07:15] LABS: Blood Urea Nitrogen* 14 mg/dL (7-30); Calcium* 8.4 mg/dL (8.4-10.6); Glucose* 76 mg/dL (60-115); Magnesium* 1.9 mg/dL (1.5-2.6)
[2022-01-15 08:00] VITALS: BP 152/88; PULSE 74; RESP 16; TEMP 36.6; O2SAT 97
[2022-01-15] MEDS: POTASSIUM CHLORIDE 10 MEQ/100 ML PIGGYBACK 100 MEQ IVPB (09:02)
[2022-01-15] MEDS: CYANOCOBALAMIN (VITAMIN B-12) 500 MCG TABLET 1000 MCG PO (10:04)
[2022-01-15] MEDS: OMEPRAZOLE 20 MG CAPSULE DR 40 MG PO ×2 (10:05→20:46)
[2022-01-15] MEDS: ASCORBIC ACID 500 MG TABLET 250 MG PO (10:06)
[2022-01-15] MEDS: CITALOPRAM HYDROBROMIDE 20 MG TABLET 10 MG PO (10:07)
[2022-01-15] MEDS: POTASSIUM CHLORIDE 10 MEQ, LIDOCAINE 1 % 1 ML in 0.9 % SODIUM CHLORIDE 100 ml 100 ML 106 MEQ IVPB (10:44)
--- NOTE | 2022-01-15 11:07 | P.GSPN_ITS ---
Subjective Subjective Date Seen: 01/15/22 Interval history: Andrew is now postop day 6. Still not passing gas or having bowel movements. Was noted to be hyponatremic last evening and placed on her free water restriction. He was switched to ice chips only because of persistent hiccuping. He is not having severe pain. He is not having significant nausea. Exam Narrative: Exam Narrative: General: No acute distress CV: Regular rate and rhythm Pulmonary: Lungs clear to auscultation bilaterally Abdomen: Mildly distended but soft. Hyperactive bowel sounds noted. Wound is clean and dry without erythema. Wound was changed today at bedside. Const: Vital Signs, click to edit/add: Vital Signs - 24 hr 01/14/22 11:15 01/14/22 16:10 01/14/22 16:10 Temperature 98.2 F 98 F Pulse Rate [Right Pulse Oximeter] 83 84 84 Respiratory Rate 20 20 20 Blood Pressure [Le ft Arm] 146/87 H 137/85 Pulse Oximetry 97 97 Oxygen Delivery Me thod Room Air Room Air 01/14/22 20:00 01/14/22 23:04 01/14/22 23:00 Temperature 98.2 F 97.9 F Pulse Rate [Right Pulse Oximeter] 78 82 82 Respiratory Rate 16 16 16 Blood Pressure [Le ft Arm] 142/86 H 157/88 H Pulse Oximetry 98 92 Oxygen Delivery Me thod Room Air Room Air 01/15/22 04:00 01/15/22 08:00 Temperature 97.8 F Pulse Rate [Right Pulse Oximeter] 79 74 Respiratory Rate 16 16 Blood Pressure [Le ft Arm] 146/79 H Pulse Oximetry 93 Oxygen Delivery Me thod Room Air Labs/Imaging Labs Labs: This morning sodium was 132 from 06/19 last evening and 127 yesterday Potassium is 3.3 Chloride is still low at 94 though this is elevated from yesterday. Magnesium within normal limits at 1.9 Progress Note: A&P Assessment and plan (1) Status post reversal of ileostomy: Status: Acute (2) Obstructive sleep apnea treated with continuous positive airway pressure (CPAP): Problem details: Not using CPAP Status: Chronic (3) Parkinson's disease: Status: Chronic (4) Hyponatremia: Status: Acute (5) Hypokalemia: Status: Acute (6) Ileus: Status: Acute Plan The patient is a 66-year-old male who is postop day 5 from ileostomy takedown and closure of mucous fistula. -still awaiting return of bowel function. I believe this will hopefully return soon as he has started to mobilize fluid as evidence by increased urine output a nd active bowel sounds. I encouraged him to decrease his oral intake in part secondary to hyponatremia but also because of hiccuping and burping. Once he starts moving his bowels then we can plan on increasing diet. I have ordered a suppository if he thinks this may help. -Lovenox for DVT prophylaxis - hyponatremia with hypochloremia. Patient is now on normal saline and I have placed him on a free water restriction. Labs are coming up appropriately. Will recheck tomorrow morning. -hypokalemia. Replacing potassium this morning as well as in maintenance fluids. Will recheck in the morning. -continue to encourage IS and ambulation. -daily dressing changes with packing. -anticipate 1-2 more days is inpatient.
[2022-01-15 12:00] VITALS: BP 157/56; PULSE 73; RESP 18; TEMP 36.4; O2SAT 98
[2022-01-15] MEDS: 0.9 % SODIUM CH + KCL 20 mEq/L 1,000 ML 75 ML IV (12:28)
[2022-01-15 15:00] VITALS: BP 131/79; PULSE 70; RESP 18; TEMP 36.4; O2SAT 98
--- NOTE | 2022-01-15 16:46 | PC.NURSE ---
0700 shift: Pt. up w/Ax1 and walker. Tolerating activity well, more tired than yesterday. Pt. denies nausea, pain or flatus. Normal bowel tones x4, no BM after pt. attempted. Offered suppository; pt. requested to wait. Dr. Vicente aware. P/C update to spouse, Natasha, this afternoon. Discussed pt's hand tics during sleep as well; states she notices this more when something is off with patient. Sodium up to 132 this morning, potassium 3.3. Gave two bumps of IV potassium, one with lidocaine per pharmacy d/t burning sensation. Maintenance fluids changed to NS+20K @ 75/hr. Pt. up to chair.
[2022-01-15] MEDS: GLYCERIN SUPP (ADULT) 1 SUPP PR (18:10)
[2022-01-15] MEDS: ENOXAPARIN 40 MG/0.4 ML INJ SUBCUT (18:10)
[2022-01-15 20:00] VITALS: BP 143/83; PULSE 79; RESP 16; TEMP 36.6; O2SAT 97
[2022-01-15] MEDS: PRAVASTATIN SODIUM 20 MG TABLET 80 MG PO (20:46)
[2022-01-15 22:37] VITALS: PULSE 79; RESP 16
[2022-01-16] VITALS (7 sets, daily range): BP systolic 124–148; BP diastolic 65–86; PULSE 65–79; RESP 16–20; TEMP 35.8–37.1; O2SAT 97–100
[2022-01-16] MEDS: 0.9 % SODIUM CH + KCL 20 mEq/L 1,000 ML 75 ML IV (01:40)
--- NOTE | 2022-01-16 05:26 | PC.NURSE ---
Shift Note 19-: Pt pleasant and cooperative, VSS, afebrile, LS clear, BS active, denies pain. Pt up to BR x2 with BM results. Pt up in hallway for walk with staff.
[2022-01-16 07:32] LABS: Chloride* 95 mmol/L (96-114); Potassium* 3.8 mmol/L (3.6-5.1); Sodium* 129 mmol/L (135-149)
[2022-01-16 07:35] LABS: Blood Urea Nitrogen* 14 mg/dL (7-30); Calcium* 7.8 mg/dL (8.4-10.6); Carbon Dioxide* 26 mmol/L (20-32); Creatinine* 0.7 mg/dL (0.5-1.5); Est. Creatinine Clearance* 77.08; Estimated Glomerular Filt Rate 102 ml/min; Glucose* 67 mg/dL (60-115)
--- NOTE | 2022-01-16 09:05 | PM.GSPN ---
Subjective Subjective Date Seen: 01/16/22 Interval history: Andrew is doing well. He had bowel movements yesterday. No nausea. No pain. Exam Narrative: Exam Narrative: General: No acute distress CV: Regular rate and rhythm Respiratory: Clear to auscultation bilaterally Abdomen: Soft, nontender, nondistended. Wound is clean and dry without erythema. Packing change this morning. Const: Vital Signs, click to edit/add: Vital Signs - 24 hr 01/15/22 12:00 01/15/22 15:00 01/15/22 15:00 Temperature 97.6 F 97.6 F Pulse Rate [Right Pulse Oximeter] 73 70 70 Respiratory Rate 18 18 18 Blood Pressure [Le ft Arm] 157/56 H 131/79 Pulse Oximetry 98 98 Oxygen Delivery Me thod Room Air Room Air 01/15/22 20:00 01/15/22 22:37 01/16/22 00:00 Temperature 97.8 F 97.4 F L Pulse Rate [Right Pulse Oximeter] 79 79 65 Respiratory Rate 16 16 16 Blood Pressure [Le ft Arm] 143/83 H 141/81 H Pulse Oximetry 97 97 Oxygen Delivery Me thod Room Air Room Air 01/16/22 03:42 Temperature 97.8 F Pulse Rate [Right Pulse Oximeter] 71 Respiratory Rate 16 Blood Pressure [Le ft Arm] 143/75 H Pulse Oximetry 99 Oxygen Delivery Me thod Room Air Labs/Imaging Labs Labs: He remains hyponatremic at 1:29 a.m. from 06/20 2 yesterday. Potassium was within normal limits. Progress Note: A&P Assessment and plan (1) Hyponatremia: Status: Acute (2) Status post reversal of ileostomy: Status: Acute (3) Parkinson's disease: Status: Chronic Plan The patient is a 66-year-old male who is postop day 6 after ileostomy and mucous fistula takedown. He is doing well overall. He has had return of bowel function. -TKO maintenance IV fluid -advanced diet to regular -encourage IS and ambulation with assist -daily dressing changes with wet to dry packing Hyponatremia -free water restriction of 1.5 L. Will also start salt tabs today -repeat labs in a.m. Parkinson's disease -patient on home meds Lovenox for DVT prophylaxis If sodium is stable anticipate discharge tomorrow.
[2022-01-16] MEDS: OMEPRAZOLE 20 MG CAPSULE DR 40 MG PO ×2 (09:07→20:46)
[2022-01-16] MEDS: ASCORBIC ACID 500 MG TABLET 250 MG PO (09:07)
[2022-01-16] MEDS: CYANOCOBALAMIN (VITAMIN B-12) 500 MCG TABLET 1000 MCG PO (09:08)
[2022-01-16] MEDS: CITALOPRAM HYDROBROMIDE 20 MG TABLET 10 MG PO (09:08)
[2022-01-16] MEDS: SODIUM CHLORIDE 1 GM TABLET PO ×3 (10:18→20:46)
[2022-01-16] MEDS: 0.9 % SODIUM CHLORIDE 1000 ml 1,000 ML 35 ML IV (10:21)
--- NOTE | 2022-01-16 12:38 | PC.NURSE ---
Addendum entered by Dorothy Menjivar RN 01/16/22 20:22: Pt. tolerated activity, walked in halls several times w/assist of staff, no pain or nausea. 2 BMs this shift, medium. Bed bath w/assist of staff. IV leaking, replaced in AC by staff. Fluids running TKO per order. Original Note: Pt. tolerating activity well, denies pain or nausea. Passing gas and had BM prior to lunch. Continues to have hiccups after eating/drinking, but lessens w/positional changes. Natasha, spouse, has concerns about constipation issues-future, and asked when able to start Miralax. Explained reason for holding Miralax yesterday as pt. having increased gas feelings and fullness. Charge nurse currently checking in with spouse to reiterate teachings given by RN.
[2022-01-16] MEDS: ENOXAPARIN 40 MG/0.4 ML INJ SUBCUT (17:52)
[2022-01-16] MEDS: PRAVASTATIN SODIUM 20 MG TABLET 80 MG PO (20:46)
[2022-01-17 02:57] VITALS: BP 153/83; PULSE 85; RESP 16; TEMP 35.8; O2SAT 99
--- NOTE | 2022-01-17 06:30 | PC.NURSE ---
Shift Note -: Pt pleasant and cooperative, VSS, afebrile, continues to deny pain. Pt tolerated dinner well, reporting feeling of fullness, Pt reminded to take food re-introduction slow and eat smaller portions to avoid discomfort. Abd dressing CDI. Pt able to sleep well most of the night woken only for vitals and urinal use. Pt is hopeful for discharge to home today. See eMAR for medication administration.
[2022-01-17 07:00] VITALS: BP 144/88; PULSE 75; RESP 24; TEMP 36.4; O2SAT 94
[2022-01-17] MEDS: ASCORBIC ACID 500 MG TABLET 250 MG PO (09:00)
[2022-01-17] MEDS: SODIUM CHLORIDE 1 GM TABLET PO ×2 (09:00→13:51)
[2022-01-17] MEDS: CITALOPRAM HYDROBROMIDE 20 MG TABLET 10 MG PO (09:01)
[2022-01-17] MEDS: OMEPRAZOLE 20 MG CAPSULE DR 40 MG PO (09:05)
[2022-01-17] MEDS: CYANOCOBALAMIN (VITAMIN B-12) 500 MCG TABLET 1000 MCG PO (09:14)
[2022-01-17 10:56] LABS: Chloride* 93 mmol/L (96-114); Potassium* 4.2 mmol/L (3.6-5.1); Sodium* 131 mmol/L (135-149)
[2022-01-17 10:59] LABS: Blood Urea Nitrogen* 9 mg/dL (7-30); Calcium* 8.5 mg/dL (8.4-10.6); Carbon Dioxide* 29 mmol/L (20-32); Creatinine* 0.5 mg/dL (0.5-1.5); Est. Creatinine Clearance* 77.08; Estimated Glomerular Filt Rate 113 ml/min; Glucose* 109 mg/dL (60-115)
[2022-01-17 11:00] VITALS: BP 123/89; PULSE 83; RESP 26; TEMP 36.4; O2SAT 99
--- NOTE | 2022-01-17 13:24 | P.DS_ITS ---
DS: Providers Provider Date Seen: 01/17/22 Date of admission: 01/10/22 06:05 Primary care physician: Samantha Stauffer MD Admitting Clinician: Kelli Mays MD Consults: 01/10/22 11:06 Consult to Physical Therapy [CONS] Routine Comment: Reason(s) for PT Consult:: Evaluate Ambulation Any Restrictions?:: No Restrictions Comment: pt has Parkinson's disease Attending Physician on discharge: Kelli Mays MD DS: Diagnosis Discharge Diagnosis (1) Status post reversal of ileostomy: Status: Acute (2) Hyponatremia: Status: Acute DS: Summary Hospital Course Hospital Course: Patient was hospitalized after end ileosotomy takedown. He did well post operatively. Patient developed hyponatremia that has improved with water restriction. he was discharged home on salt tabs. On the day of discharge patient was tolerating regular diet and having BMs. Time Spent with Patient Time attestation: Total time spent providing and/or coordinating discharge services: Exam Narrative: Exam Narrative: ABdomen: soft, minimally distended, not tender to palpation or percussion. Right sided ileostomy incision with no surroung erythema. The packing is intact. Const: Vital Signs, click to edit/add: Vital Signs - 24 hr 01/16/22 15:00 01/16/22 15:00 01/16/22 19:00 Temperature 96.5 F L 97.8 F Pulse Rate [Right Pulse Oximeter] 77 77 71 Respiratory Rate 18 18 20 Blood Pressure [Le ft Arm] 125/65 142/81 H Pulse Oximetry 99 98 Oxygen Delivery Me thod Room Air Room Air 01/16/22 23:00 01/16/22 23:00 01/17/22 02:57 Temperature 98.8 F 96.5 F L Pulse Rate [Right Pulse Oximeter] 71 71 85 Respiratory Rate 20 16 16 Blood Pressure [Le ft Arm] 148/86 H 153/83 H Pulse Oximetry 97 99 Oxygen Delivery Me thod Room Air Room Air DS: Data Data Completed and Pending Labs on day of discharge: Labs from last 24 hours 01/17/22 09:28 Sodium 131 L Potassium 4.2 Chloride 93 L Carbon Dioxide 29 BUN 9 Creatinine 0.5 Estimated Creat Clear 77.08 Estimated GFR 113 Glucose 109 Calcium 8.5 Discharge Plan Discharge Disposition: Home, Self-Care Date of Admission: 01/10/22 06:05 Attending Provider on Discharge: Kelli Mays Primary Care Provider: Samantha Stauffer Condition: Stable Anticipated Discharge Date/Time: 01/17/22 13:22 Discharge Medications: New polyethylene glycol 3350 [Miralax] 17 gram/dose powder 17 g PO DAILY Qty: 119 0RF sodium chloride 1,000 mg Tablet,Soluble 1 g PO TID Qty: 30 0RF Continued amantadine HCl 137 mg capsule,extended release 24hr 274 mg PO .Bedtime carbidopa-levodopa 61.25-245 mg capsule, extended release 1 cap PO QID ascorbic acid (vitamin C) 250 mg tablet 250 mg PO DAILY cyanocobalamin (vitamin B-12) 1,000 mcg tablet 1,000 mcg PO DAILY citalopram 10 mg tablet 10 mg PO DAILY aspirin 81 mg tablet,chewable 81 mg PO DAILY ondansetron 4 mg tablet,disintegrating 4 mg PO .Daily as needed PRN omeprazole 40 mg capsule,delayed release(DR/EC) 40 mg PO BID Qty: 180 4RF pravastatin 80 mg tablet 80 mg PO HS cholecalciferol (vitamin D3) 50 mcg (2,000 unit) tablet 2,000 unit PO DAILY Qty: 90 4RF Discharge Orders: Discharge Order (Routine); Ordered 01/17/22 Ordered By: Kelli Mays Activity Level: No strenuous activity Activity Detail: No lifting more than 15 lbs for 6 weeks. Do wet to dry daily dressing changes. Discharge Diet: Regular and 2000 ml Fluid Restriction Diet Detail: 2L water restriction Follow Up Appointments: Kelli Mays MD [Staff Physician] - Samantha Stauffer MD [Primary Care Provider] - (hyponatremia s/p discharge. ) Forms: [facility] Info Instructions Discharge Comments: f/u PCP within 1 week
[2022-01-17] MEDS: polyethylene glycoL 3350 17 GM PACK PO (13:51)
--- NOTE | 2022-01-17 16:02 | PC.NURSE ---
shift [id number] pt this shift calm and cooperative. Denies pain. independent in room with walker. per pt report, small pebble like stool yesterday. Abdomen bloated this shift, encouraged to walk in the mark. BS active. Pt attempt to walk but felt dizzy at the bedside. Sat down and pt declined wanting to walk at that point. States he felt a little disoriented and spacey. VS, pt allowed to rest. DC'd at 1500, wheel chaired out to ride, accompanied by . IV dc'd and discharge instructions given.
== END 2022-01-17 15:00 | disposition home or self-care (01) | DRG 223 ==
PROVIDERS: Surgery; Admitting Provider Surgery; PCP Family Medicine; Visit Provider Surgery
PROC: 0DBE0ZZ Excision of Large Intestine, Open Approach (ICD-10-PCS; CPT 44620; principal; 2022-01-10 07:15)
DX: Z43.2 Encounter for attention to ileostomy (principal); E87.1 Hypo-osmolality and hyponatremia; K21.9 Gastro-esophageal reflux disease without esophagitis; G47.33 Obstructive sleep apnea (adult) (pediatric); G20 Parkinson's disease; E87.6 Hypokalemia; K56.7 Ileus, unspecified; E87.8 Other disorders of electrolyte and fluid balance, not elsewhere classified; E53.8 Deficiency of other specified B group vitamins; E78.5 Hyperlipidemia, unspecified; E55.9 Vitamin D deficiency, unspecified; K22.0 Achalasia of cardia; F32.4 Major depressive disorder, single episode, in partial remission; Z96.82 Presence of neurostimulator
CPT/HCPCS: 00840; 36415; 80048; 83735; 85018; 85025; 88304; 97116; 97161; 97530; A9270; J0330; J0780; J1100; J1170; J1335; J1650; J2405; J2704; J3010; J3480; J3490; J7030; J7120

== ENCOUNTER 2022-01-20 10:29 | Outpatient (CLI) | payer BC, SELFPAY ==
--- OUTSIDE RECORDS SUMMARY | 2022-01-26 11:54 | XMS_ITS | Clinical Summary ---
:1955 Author Organization [employer] [place] [address] Care Team Providers Name Role Phone Maria Esther Phan MD Unavailable Shannon Avery MD Unavailable Min, Charanjit Holt MD Unavailable Samantha Stauffer MD Primary Care Provider [phone] Allergies No known active allergies Medications [...] oldest Diabetes Father Heart Disease Father CAD, CA age 68-6 9, CABG Hyperlipidemia Father Heart Disease Mother CAD, [place] age 70 Hyperlipidemia Mother Stroke Mother Other [...] Organization Address City/State/ZIP Code Phon e Number [facility] [address] [place] [address] LABORATORY-CENTRAL 2000 LABORATORY PATH TISSUE EXAM (01/10/2022 8:45 AM CDT) Component Value Ref Test Analysis Performed At [facility] gist Range Method Time Signature Case Report Pathology Report ?Case: [id number] ? 01/11/2022 CATIE Authorizing Provider: ??Kelli Johnson MD ?Collected: ? 01/10/2022 0845 ? 1:20 PM HEALTH Ordering Location: ? [facility] C[facility]TR[facility] LAB ?Received: ?01/10/2022 1733 ? CDT [...] colitis, ENTRAL status post right LABORATORY hemicolectomy ([id number]) undergoing ileostomy takedown. Gross A) Received in [...] is identified. 1:20 PM HEALTH CDT LABORATORY-C Last Model Maker sections are submitted: ENTRAL 1. 2 opposing resection margins, en face LABORATORY 2. Stoma TTP 01/10/2022 Microscopic The final diagnosis is based on microscopic examination of appropriate sections of all specimens. 01/11/2022 OBDULIA WANG Description 1:20 PM HEALTH CDT LABORATORY-C ENTRAL LABORATORY Additional 01/11/2022 ALLINA Information Interpreted at [facility], Central Laboratory - [address], [place] [address] 1:20 PM HEALTH CDT LABORATORY-C ENTRAL LABORATORY Specimen Anatomical Collection Method Collection Time Receive d Time (Source) Location / / Volume Laterality Other ILEOSTOMY FLUID 01/10/2022 8:45 AM 2021 5:33 SAMPLE / Unknown CDT PM CDT Kelli Mays MD PATHOLOGY/CYTOLOGY Performing Organization Address City/State/ZIP Code Phon e Number [facility] [address] [place] [address] LABORATORY-CENTRAL 2000 LABORATORY from Last 3 Months Insurance Payer Benefit Plan / Subscriber ID Effective Dates Phone Addre ss Type Group BLUE CROSS BLUE CROSS OF [id number] 2014-Present [address] [address] [place] [address] [address] (Home) [place] [address] Advance Directives Latest Code Status on File Code Status Date Activated Date Inactivated Comments Full Code 03/18/2021 11:01 AM 03/20/2021 5:01 PM Code Status Discussion: Not Discussed Full Code 12/31/2020 12:12 PM 01/13/2021 12:25 PM Code Status Discussion: Per Existing Order Full Code 12/25/2020 7:47 PM 12/31/2020 12:05 PM Code Status Discussion: Discussed Care Teams Box Attacher Relationship Specialty Start Date End Date Samantha Stauffer MD PCP - General Family Practice 12/27/201999 [place] [address] Maria Esther Phan MD Neurology Neurology 12/27/20 [address] [place] [address] Shannon Avery MD Hospitalist Pulmonary Medicine 12/27/[address] [place] [id number] Charanjit Gray MD Hospitalist Gastroenterology 12/27/20 [address] [facility] [address] [place], [place] [address]
--- OUTSIDE RECORDS SUMMARY | 2022-01-26 11:54 | XMS_ITS | Clinical Summary ---
:1955 Author Organization [place] Address [address] [facility] [place] [address] Care Team Providers Name Role Phone Samantha Stauffer MD Primary Care Provider [phone] Allergies No known active allergies Medications [...] Comments Lipids Father 1 Cardiovascular Father 2 [place], s/p CABG in mid- late 60's Diabetes Father 2 Neurologic Disorder Father 2 Parkinson's Cardiovascular Mother CVA x4 and [place], s/p C ABG in mid-late 60's Relation [...] this topic Medical Devices Implanted Type Area Agile Coach Device Shelf Model / Identifier Expiration Date Ser ial / Lot Fiducials Skull IMAGE GUIDED 06/12/2017 [id number] / Implanted: Qty: 5 on 09/09/2014 by Demetrio gale, Gonzalez Snider MD at [facility] NEUROLO / [id number] Description: 5 fiducials used - opened 1 box for charging (contains 6 in box). Done in the clinic - reported to us by [employer] [id number] Right: Chest [employer]-NEURO 12/17/2015 [id number] / Implanted: Qty: 1 on 09/16/2014 by Demetrio gale, Gonzalez Snider MD at [facility] [id number] / Insurance Payer Benefit Plan / Subscriber ID Effective Dates Phone Addre ss Type Group BCBS BCBS OUT OF [id number] 2014-Present [phone] [address] [address] [place] [address] [address] (Home) [place] [phone] [place] 8 [phone] (Work) Advance Directives For more information, please contact: [phone] Latest Code Status on File Code Status Date Activated Date Inactivated Comments Full Code 09/10/2014 9:18 AM Care Teams Strategic Intelligence Officer Relationship Specialty Start Date End Date Samantha Stauffer MD PCP - General Family Medicine 12/17/20 [facility] [address] [place] [address]
--- OUTSIDE RECORDS SUMMARY | 2022-01-26 11:55 | XMS_ITS | Encounter Summary ---
:1955 Author Organization [facility] Address [address] [place] [address]. [place] [address] Care Team Providers Name Role Phone Lurdes Thomas MD Primary Care Provider Reason for Visit Reason Onset Date Comments Panel Management 11/19/2014 Colonoscopy Encounter Details Date Type Department Care Team Description 11/19/2014 Telephone [facility] Lurdes Oh Panel Management [address] [facility] MD [place] (Colonoscopy) [place] [address] [facility] [phone] [address] (Wo rk) Social History Tobacco Use [...] Review Date of last visit with a [facility] provider: Dr Thomas on 09/22/14. Date of next visit with a [facility] provider: None. Problem List Patient Active Problem [...] visit for Colonoscopy/FIT. Type of outreach: Sent Money Mover message. Questions for provider review: None Please indicate office visit, lab, MTM, or nurse appt if needed. Indicate fasting or not fasting. Tamy Leahy LPN Chart routed to Care Team . documented in this encounter Plan of Treatment Not on filedocumented as of this encounter Visit Diagnoses Not on filedocumented in this encounter Care Teams Lobster Fisherman Relationship Specialty Start Date End Date Lurdes Thomas MD PCP - General Internal Medicine 06/11/14 12/16/20 documented as of this encounter
--- OUTSIDE RECORDS SUMMARY | 2022-01-26 11:55 | XMS_ITS | Encounter Summary ---
:1955 Author Organization [facility] Address [address] [place] [address]. [place] [address] Care Team Providers Name Role Phone Lurdes Thomas MD Primary Care Provider [phone] Reason for Visit Reason Onset Date Comments Refill Request 11/17/2014 PRAVASTATIN 80MG Encounter Details Date Type Department Care Team Description 11/17/2014 Refill [facility] Eag Lurdes Rojas Refill Request 14[address] [facility] MD [place] (PRAVASTATIN 80MG) [place] [address] [facility] [phone] [place] [address] (Wo rk) Social History Tobacco Use [...] # refills: 0 [place] Office [place] [facility] [place] care provider: 08/25/2014 CHOL 178 09/20/2012 HDL 66 09/20/2012 LDL 95 09/20/2012 TRIG 83 09/20/2012 CHOLHDLRATIO 2.7 09/20/2012 documented in this encounter Plan of Treatment Not on filedocumented as of this encounter Visit Diagnoses Diagnosis Hyperlipidemia LDL goal < 130 - Primary Other and unspecified hyperlipidemia documented in this encounter Care Teams Ordnance Technician Relationship Specialty Start Date End Date Lurdes Thomas MD PCP - General Internal Medicine 06/11/14 12/16/20 documented as of this encounter
--- OUTSIDE RECORDS SUMMARY | 2022-01-26 11:55 | XMS_ITS | Encounter Summary ---
:1955 Author Organization [facility] Address [address] [place] [address]. [place] [address] Care Team Providers Name Role Phone Lurdes Thomas MD Primary Care Provider Samantha Stauffer MD Primary Care Provider [phone] Encounter Details Date Type Department Care [...] on filedocumented in this encounter Care Teams Melon Packer Relationship Specialty Start Date End Date Lurdes Thomas MD PCP - General Internal Medicine 06/11/14 12/16/20 Samantha Stauffer MD PCP - General Family Medicine 12/17/[address] [address] documented as of this encounter
--- OUTSIDE RECORDS SUMMARY | 2022-01-26 11:55 | XMS_ITS | Encounter Summary ---
:1955 Author Organization [facility] Address [address] [facility] [place] [address] Care Team Providers Name Role Phone Lurdes Thomas MD Primary Care Provider [phone] Encounter Details Date Type Department Care Team Description 10/09/2014 Medical Correspondence [facility] Scan, LETTER FROM [facility], Non-Provider NIECY COOPER, Health Info Elicia CONTRERAS MD-09/20 Srvcs [address] [facility] [place] [address] Social History Tobacco Use Types Packs/Day [...] on filedocumented in this encounter Care Teams Banquet Kitchen Supervisor Relationship Specialty Start Date End Date Lurdes Thomas MD PCP - General Internal Medicine 06/11/14 12/16/20 documented as of this encounter
--- OUTSIDE RECORDS SUMMARY | 2022-01-26 11:55 | XMS_ITS | Encounter Summary ---
:1955 Author Organization [facility] Address [address] [place] [address]. [place] [address] Care Team Providers Name Role Phone Lurdes Thomas MD Primary Care Provider [phone] Encounter Details Date Type Department Care Team Description 08/29/2020 Immunization [facility] Logan Nelson Vaccination [address] [address] [place] [address] [phone] Social History Tobacco Use Types Packs/Day Years [...] on filedocumented in this encounter Care Teams Engine Turner Relationship Specialty Start Date End Date Lurdes Thomas MD PCP - General Internal Medicine 06/11/14 12/16/20 documented as of this encounter
--- OUTSIDE RECORDS SUMMARY | 2022-01-26 11:55 | XMS_ITS | Encounter Summary ---
:1955 Author Organization [facility] Address [address] [place] [address]. [place] [address] Care Team Providers Name Role Phone Lurdes Thomas MD Primary Care Provider [phone] Reason for Visit Reason Onset Date Comments Prior Auth - Medication 02/12/2015 viagra Encounter Details Date Type Department Care Team Description 02/12/2015 Telephone [facility] Lurdes Oh Prior Auth - Medication [address] [facility] MD [place] (viagra ) [place] [address] [facility] [phone] [place] [address] (Wo rk) Social History Tobacco Use [...] on filedocumented in this encounter Care Teams Emergency Man Relationship Specialty Start Date End Date Lurdes Thomas MD PCP - General Internal Medicine 06/11/14 12/16/20 documented as of this encounter
--- OUTSIDE RECORDS SUMMARY | 2022-01-26 11:55 | XMS_ITS | Encounter Summary ---
:1955 Author Organization [facility] Address [address] [place] [address]. [place] [address] Care Team Providers Name Role Phone Lurdes Thomas MD Primary Care Provider Reason for Visit Reason Onset Date Comments Refill Request 04/15/2016 PRAVASTATIN 80MG Encounter Details Date Type Department Care Team Description 04/15/2016 Refill [facility] Eag an Lurdes Thomas Refill Request 1440 [facility] MD [place] (PRAVASTATIN 80MG) [place] [address] [facility] [phone] [address] (Wo rk) Social History [...] Lurdes Thomas MD - 04/15/2016 4:37 PM DIRECTOR DATA ANALYTICS Mychart sent telling patient cannot continue to fill medications without visit. Lurdes Thomas MD Internal Medicine/Pediatrics CTOR DATA ANALYTICS Telephone Encounter - Chanell Villa RN - 04/15/2016 4:30 PM DIRECTOR DATA ANALYTICS Made multiple attempts(LM & MC message) from October advising pt that he is due for an OV. Pt haven't responded. Routing refill request to provider for review/approval because: Hawa given x1 and patient did not follow up, please advise Chanell.Liliam varnisher Nurse CTOR DATA ANALYTICS Telephone Encounter - Genie Mello - 04/15/2016 4:28 PM CST PRAVASTATIN 80MG Last Written Prescription Date: 10/23/2015 Last Fill Quantity: 90, # refills: 1 Last Office Visit with [facility], [facility] or [facility] prescribing provider: 02/12/2015 CHOL 219 11/25/2014 HDL 65 11/25/2014 LDL 123 11/25/2014 TRIG 153 11/25/2014 CHOLHDLRATIO 3.4 11/25/2014 CTOR DATA ANALYTICS documented in this encounter Plan of Treatment Not on filedocumented as of this encounter Visit Diagnoses Diagnosis Hyperlipidemia with target LDL less than 130 - Primary Other and unspecified hyperlipidemia documented in this encounter Care Teams Quality Systems Engineer Relationship Specialty Start Date End Date Lurdes Thomas MD PCP - General Internal Medicine 06/11/14 12/16/20 documented as of this encounter
--- OUTSIDE RECORDS SUMMARY | 2022-01-26 11:55 | XMS_ITS | Encounter Summary ---
:1955 Author Organization [facility] Address [address] [facility] [place] [address] Care Team Providers Name Role Phone Lurdes Thomas MD Primary Care Provider [phone] Reason for Visit (Routine) - Closed Specialty Diagnoses / Procedures Referred By Contact Refer red To Contact Radiology / Radiology. Procedures Uu Mri MR LUMBAR SPINE [address] [place] [address] Phone: Referral ID Status Reason Start Date Expiration Date Visits Requ ested Visits Authorized [id number] Closed 08/18/2015 08/17/2016 1 1 Encounter Details Date Type Department Care Team Description 08/21/2015 Hospital Encounter [facility] ParashosVianeye re low back pain [facility] Imaging Maria Esther Amaro MD [address] [place], [place] [address] [employer] [address] [place] [address] Social History Tobacco Use Types [...] Lumbago documented in this encounter Care Teams Dock Manager Relationship Specialty Start Date End Date Lurdes Thomas MD PCP - General Internal Medicine 06/11/14 12/16/20 documented as of this encounter
--- OUTSIDE RECORDS SUMMARY | 2022-01-26 11:55 | XMS_ITS | Encounter Summary ---
:1955 Author Organization [place] Address [address] [place] [address] Care Team Providers Name Role Phone Lurdes Thomas MD Primary Care Provider [phone] Reason for Visit Auth/Cert - Closed Specialty Diagnoses / Procedures Referred By Contact Refer red To Contact Surgery Diagnoses [facility] Periop Services Procedures IMPLANT PULSE GENERATOR SUBCUTANEOUS [address] [place] [address] Phone: Referral ID Status Reason Start Date Expiration Date Visits Requ ested Visits Authorized [id number] Closed 1 1 Encounter Details Date Type Department Care Team Description 09/16/2014 Anesthesia Event [facility] Jacquie Coughlin ANESTHESIOLOGY [address] [place] [id number] Simone PeriOP Ser Rogelio Gee MD [facility] ANESTHESIOLOGISTS [address] [place] [id number] [address], [address] [place] [...] EXTENSION AND RIGHT INFRACLAVICULAR PULSE GENERATOR PLACEMENT (Appy Couple) Anesthesia type: General, ETT Post Op Diagnosis: [...] Arline Hutson APRN CNP vitamin D (ERGOCALCIFEROL) 97863 UNIT capsule Take 1 capsule (50,000 Units) [...] 1900 04/12/10 Lurdes Thomas MD No current [facility]-ordered facility-administered medications on file. No current [...] results for input(s): INR in the last 47157 hours. Invalid input(s): APTT RECENT LABS: ECG: [...] benefits and alternatives discussed with: patient or volunteer patient representative. . History & Physical Review History [...] Intra-op documented in this encounter Care Teams Co Founder And Chief Strategy Officer Relationship Specialty Start Date End Date Lurdes Thomas MD PCP - General Internal Medicine 06/11/14 12/16/20 documented as of this encounter
--- OUTSIDE RECORDS SUMMARY | 2022-01-26 11:55 | XMS_ITS | Encounter Summary ---
:1955 Author Organization [place] Address [address] [facility] [place] [address] Care Team Providers Name Role Phone Lurdes Thomas MD Primary Care Provider [phone] Reason for Visit Auth/Cert - Closed Specialty Diagnoses / Procedures Referred By Contact Refer red To Contact Surgery Diagnoses PARKINSONS DISEASE Sh Periop Services Procedures IMPLANT PULSE GENERATOR SUBCUTANEOUS [address] [place] [address] Phone: Referral ID Status Reason Start Date Expiration Date Visits Requ ested Visits Authorized [id number] Closed 1 1 Encounter Details Date Type Department Care Team Description 09/16/2014 Surgery [facility] Gonzalez Rowland BILATERAL LEAD EXTENSION Southhelena Snider MD AND RIGHT INFRACLAVICULAR Services XX RESIGNED XX PULSE GENERATOR PLACEMENT [address] ([employer]) [address] [place] [address] [place] [address] [phone] Surgery Details Date/Time Status Location OR Service [...] MD Primary Neurosurgery 1 Arline Peñaloza APRN AIRPORT SHUTTLE DRIVER Director Of Midwifery/Staff Midwife Autho rization 1 documented in this encounter [...] Physician Discharge Summary Patient ID: Andrew Pang [id number] 59 year old 1955 Admit date: 09/16/2014 Discharge date and time: 09/16/2014 Admitting Physician: Gonzalez Rowland MD Discharge Physician: Arline Hutson [facility] Admission Diagnoses: PARKINSONS DISEASE Discharge Diagnoses: [...] deep brain stimulator placement vitamin D (ERGOCALCIFEROL) 98189 UNIT capsule Take 1 capsule (50,000 Units) [...] Deep Brain Stimulator Postop Instructions Dr. Rowland [phone] 1. Ok to shower after 3 days. [...] ?? You have been given a patient it programmer that can check that the stimulator [...] Take 1 capsule 4 capsule 2 08/2602/12/2015 46503 UNIT (50,000 Units) by capsuleIndications: Vitamin mouth every 7 D deficiency disease days documented as of this encounter H&P Notes Corine Alexander - 09/11/2014 7:49 AM CDT The purpose of this note is to make the H&P performed in the clinic within the last 30 days available in the hospital surgical encounter. Source Note - Lurdes Thomas MD - 08/25/2014 12:38 PM CDT [address] [address] Dept: [phone] PRE-OP EVALUATION: Today's date: 08/25/2014 Andrew Pang (: 1955) presents for pre-operative evaluation assessment as requested by . He requires evaluation and anesthesia risk assessment prior to undergoing surgery/procedurefor treatment of Parkinson's . Proposed procedure: Deep brain stimulator implant Date of Surgery/ Procedure: 09/09& Time of Surgery/ Procedure: 05 Hospital/Surgical Facility: [facility] Primary Physician: Lurdes Thomas Type [...] cardiovascular risks for perioperative complications such as (CT, PE, VFib and 3?? AV Block): No [...] evaluation report is provided to requesting physician. [facility] Preop Guidelines documented in this encounter Nursing [...] bilateral lead extensions SURGEON: Gonzalez Rowland MD Director Of Midwifery/Staff Midwife: Arline Hutson NP PROCEDURE: The patient was [...] Provider: Pavel Miner) Routine, 2 g, Intravenous, PRE-OP/PRE-NV OCEDURE, Starting on Mon09/16/14 at 0638, For [...] in this encounter Care Teams Director Of Global Marketing Relationship Specialty Start Date End Date Lurdes Thomas MD PCP - General Internal Medicine 06/11/14 12/16/20 documented as of this encounter
--- OUTSIDE RECORDS SUMMARY | 2022-01-26 11:55 | XMS_ITS | Encounter Summary ---
:1955 Author Organization [place] Address [address] [place] [address]. [place] [address] Care Team Providers Name Role Phone Lurdes Thomas MD Primary Care Provider [phone] Reason for Visit Reason Onset Date Comments Other 11/13/2014 Battery moving in [facility] Encounter Details Date Type Department Care Team Description 11/13/2014 Telephone [facility] Gonzalez Rowland Other (Ba ttroberto carlos moving Neurosurgery [facility] MD Tylor in chest) [place] XX RESIGNED XX [address] [facility] [address] [place] [address] [place] [address] [place] [address] [place] [address] [phone] Social History Tobacco Use Types Packs/Day Years [...] Notes Telephone Encounter - Rachel Cuadra, MARISOL DRYWALLER - 11/13/2014 3:03 PM CDT Pt called [...] filedocumented in this encounter Care Teams Inspector Health Care Facilities Relationship Specialty Start Date End Date Lurdes Thomas MD PCP - General Internal Medicine 06/11/14 12/16/20 documented as of this encounter
--- OUTSIDE RECORDS SUMMARY | 2022-01-26 11:55 | XMS_ITS | Encounter Summary ---
:1955 Author Organization [place] Address [address] [place] [address] Care Team Providers Name Role Phone Samantha Stauffer MD Primary Care Provider [phone] Reason for Referral Diagnostic Imaging XR (Routine) - Closed Specialty Diagnoses / Procedures Referred By Contact Refer red To Contact Diagnoses Esophageal dysphagia Charanjit Gray MD Procedures XR Esophagram [facility] [address] [address] [place], [place] [address] Referral ID Status Reason Start Date Expiration Date Visits Requ ested Visits Authorized [id number] Closed 12/09/2020 12/09/2021 1 1 Reason for Visit Diagnostic Imaging XR (Routine) - Closed Specialty Diagnoses / Procedures Referred By Contact Refer red To Contact Diagnoses Esophageal dysphagia Charanjit Gray MD Procedures XR Esophagram [facility] [address] [address] [place], [place] [address] Referral ID Status Reason Start Date Expiration Date Visits Requ ested Visits Authorized [id number] Closed 12/09/2020 12/09/2021 1 1 Encounter Details Date Type Department Care Team Description 12/17/2020 [facility] Charanjit Gray MD Esophageal Encounter [facility] dysphagia [address] [address] [address] [place] [address] [place], [place] [phone] (Wo rk) [address] [phone] Social History Tobacco Use Types Packs/Day Years [...] dose documented in this encounter Care Teams End Worker Relationship Specialty Start Date End Date Samantha Stauffer MD PCP - General Family Medicine 12/17/20 [place] [address] documented as of this encounter
--- OUTSIDE RECORDS SUMMARY | 2022-01-26 11:55 | XMS_ITS | Encounter Summary ---
:1955 Author Organization [place] Address [address] [place] [address]. [place] [address] Care Team Providers Name Role Phone Lurdes Thomas MD Primary Care Provider [phone] Encounter Details Date Type Department Care Team Description 08/08/2020 Immunization [facility] [address] [place] [address] Social History Tobacco Use Types Packs/Day [...] filedocumented in this encounter Care Teams Asset Protection Specialist Relationship Specialty Start Date End Date Lurdes Thomas MD PCP - General Internal Medicine 06/11/14 12/16/20 documented as of this encounter
--- OUTSIDE RECORDS SUMMARY | 2022-01-26 11:55 | XMS_ITS | Encounter Summary ---
:1955 Author Organization [place] Address [address] [place] [address]. [place] [address] Care Team Providers Name Role Phone Samantha Stauffer MD Primary Care Provider [phone] Encounter Details Date Type Department Care [...] on filedocumented in this encounter Care Teams Operating Manager Relationship Specialty Start Date End Date Samantha Stauffer MD PCP - General Family Medicine 12/17/[address] [address] documented as of this encounter
--- OUTSIDE RECORDS SUMMARY | 2022-01-26 11:55 | XMS_ITS | Encounter Summary ---
:1955 Author Organization [place] Address [address] [facility] [place] [address] Care Team Providers Name Role Phone Lurdes Thomas MD Primary Care Provider [phone] Encounter Details Date Type Department Care Team Description 09/18/2014 Documentation Only [facility] Gonzalez Rowland Neurosurgery Clinic MD See [place] XX RESIGNED XX [address] [facility] out [address] [facility] [address] [place] [address] [place] [address] [phone] Social History Tobacco Use Types Packs/Day Years [...] as of this encounter Progress Notes Gonzalez Rolwand - 09/18/2014 3:05 PM CDT To Whom [...] is because it would provide him with secmgu-tmy-jjhqu control of his motor symptoms, which would [...] on filedocumented in this encounter Care Teams Drapery Examiner Relationship Specialty Start Date End Date Lurdes Thomas MD PCP - General Internal Medicine 06/11/14 12/16/20 documented as of this encounter
--- OUTSIDE RECORDS SUMMARY | 2022-01-26 11:55 | XMS_ITS | Encounter Summary ---
:1955 Author Organization [place] Address [address] [facility] [place] [address] Care Team Providers Name Role Phone Lurdes Thomas MD Primary Care Provider [phone] Encounter Details Date Type Department Care Team Description 11/25/2014 Orders Only [facility] Eag an Hyperlipidemia LDL goal < 1440 [address] [place] [address] Social History Tobacco [...] athologist Signature Cholesterol 219 (H) <200 mg/dL [facility] Comment: LDL Cholesterol is the primary guide to therapy. The NCEP recommends further evaluation of: patients with cholesterol greater than 200 mg/dL if additional risk facto rs are present, cholesterol greater than 240 mg/dL, triglycerides greater than 1 50 mg/dL, or HDL less than 40 mg/dL. Triglycerides 153 (H) 0 - 150 mg/dL [facility] Comment: Fasting specimen HDL Cholesterol 65 >40 mg/dL [facility] LDL Cholesterol Calculated 123 0 - 129 mg/dL [facility] Comment: LDL Cholesterol is the primary guide to therapy: LDL-cholesterol goal in high risk patients is <100 mg/dL and in very high risk patients is <70 mg/dL. VLDL-Cholesterol 31 (H) 0 - 30 mg/dL [facility] Aidan ROMEO [facility] Cholesterol/HDL Ratio 3.4 0.0 - 5.0 [facility] Specimen Anatomical Collection Method Collection Time Receive d Time (Source) Location / / Volume Laterality Blood specimen 11/25/2014 7:57 AM 015 7:58 (specimen) CDT AM CDT Lurdes Thomas MD LAB - BLOOD ORDERABLES Performing Organization Address City/State/ZIP Code Phon e Number [facility] [address] [place] [address] documented in this encounter Visit Diagnoses Diagnosis Hyperlipidemia LDL goal < 130 Other and unspecified hyperlipidemia documented in this encounter Care Teams Spotter Relationship Specialty Start Date End Date Lurdes Thomas MD PCP - General Internal Medicine 06/11/14 12/16/20 documented as of this encounter
--- OUTSIDE RECORDS SUMMARY | 2022-01-26 11:55 | XMS_ITS | Encounter Summary ---
:1955 Author Organization [place] Address [address] [place] [address]. [place] [address] Care Team Providers Name Role Phone Lurdes Thomas MD Primary Care Provider [phone] Reason for Visit Reason Onset Date Comments Outreach 05/30/2015 [facility] call not require d FIT ordered,[facility] Encounter Details Date Type Department Care Team Description 05/30/2015 Telephone [facility] Lurdes Thomas h ([facility] call not [facility] Laughlin MD required FIT MANAGEMENT DEPT [facility] ordered,cnt) [address] [place] [address] [address] [place] [address] [address] [phone] [place], [place] [address] (Wo rk) Social History Tobacco [...] on filedocumented in this encounter Care Teams Narrative Writer Relationship Specialty Start Date End Date Lurdes Thomas MD PCP - General Internal Medicine 06/11/14 12/16/20 documented as of this encounter
--- OUTSIDE RECORDS SUMMARY | 2022-01-26 11:55 | XMS_ITS | Encounter Summary ---
:1955 Author Organization [place] Address [address] [facility] [place] [address] Care Team Providers Name Role Phone Lurdes Thomas MD Primary Care Provider [phone] Reason for Visit (Routine) - Closed Specialty Diagnoses / Procedures Referred By Contact Refer red To Contact Radiology / Radiology. Diagnoses R#NA, Written Order, SB Doris, Not a read and call. Sh Ct Scan Procedures CT LUMBAR SPINE [address] [place] [address] Phone: Referral ID Status Reason Start Date Expiration Date Visits Requ ested Visits Authorized [id number] Closed 08/31/2015 08/30/2016 1 1 Encounter Details Date Type Department Care Team Description 08/31/2015 Hospital Encounter [facility] [place], So re low back pain [facility] Esther Amaro MD [address] [place] [address] [address] [place] [id number] Social History Tobacco Use Types Packs/Day Years [...] Lumbago documented in this encounter Care Teams Bench Lathe Operator Relationship Specialty Start Date End Date Lurdes Thomas MD PCP - General Internal Medicine 06/11/14 12/16/20 documented as of this encounter
--- OUTSIDE RECORDS SUMMARY | 2022-01-26 11:55 | XMS_ITS | Encounter Summary ---
:1955 Author Organization [place] Address [address] [place] [address]. [place] [address] Care Team Providers Name Role Phone Lurdes Thomas MD Primary Care Provider Samantha Stauffer MD Primary Care Provider [phone] Encounter Details Date Type Department Care [...] filedocumented in this encounter Care Teams Senior Medical Technologist Relationship Specialty Start Date End Date Lurdes Thomas MD PCP - General Internal Medicine 06/11/14 12/16/20 Samantha Stauffer MD PCP - General Family Medicine 12/17/[address] [address] documented as of this encounter
--- OUTSIDE RECORDS SUMMARY | 2022-01-26 11:55 | XMS_ITS | Encounter Summary ---
:1955 Author Organization [place] Address [address] [place] [address]. [place] [address] Care Team Providers Name Role Phone Lurdes Thomas MD Primary Care Provider [phone] Reason for Visit Reason Onset Date Comments Panel Management 06/25/2015 Encounter Details Date Type Department Care Team Description 06/25/2015 Telephone [facility] Lurdes Oh Panel Management [address] [facility] [place] [address] [facility] [phone] [address] [place], [place] [address] (Wo rk) Social History Tobacco Use [...] a reminder letter regarding the FIT test. GER PIPELINE Telephone Encounter - Tamy Leahy LPN - 06/25/2015 2:13 PM CST Panel Management Review Patient has the following on his problem list: none Composite cancer screening Chart review shows that this patient is due/due soon for the following Fecal Colorectal (FIT) Summary: Patient is due/failing the following: FIT Action needed: FIT test completion Type of outreach: Sent Plickers message. Reminding patient to complete FIT test. Questions for provider review: None Tamy Laehy LPN Chart routed to Care Team . GER PIPELINE documented in this encounter Plan of Treatment Not on filedocumented as of this encounter Visit Diagnoses Not on filedocumented in this encounter Care Teams Seed And Fertilizer Specialist Relationship Specialty Start Date End Date Lurdes Thomas MD PCP - General Internal Medicine 06/11/14 12/16/20 documented as of this encounter
--- OUTSIDE RECORDS SUMMARY | 2022-01-26 11:55 | XMS_ITS | Encounter Summary ---
:1955 Author Organization [place] Address [address] [place] [address]. [place] [address] Care Team Providers Name Role Phone Lurdes Thomas MD Primary Care Provider [phone] Reason for Referral Medication Prior Authorization (Routine) - Closed Specialty Diagnoses / Procedures Referred By Contact Refer red To Contact Diagnoses Hyperlipidemia with target LDL less than 130 Lurdes Thomas MD [address] [address] Referral ID Status Reason Start Date Expiration Date Visits Requ ested Visits Authorized [id number] Closed Reason for Visit Reason Onset Date Comments Refill Request 10/20/2015 PRAVASTATIN 80MG Encounter Details Date Type Department Care Team Description 10/20/2015 Refill [facility] Eag Lurdes Rojas Refill Request 1440 Demian Laughlin MD (PRAVASTATIN 80MG) [place] [address] [facility] [phone] [place] [address] [place] [address] (Wo rk) Social History Tobacco [...] for 6 months. Please advise pt. Maggie legal counsel Nurse Telephone Encounter - Julisa Hayden - 10/20/2015 11:53 AM CDT PRAVASTATIN 80MG Last Written Prescription Date: 04/13/2015 Last Fill Quantity: 90, # refills: 1 Last Office Visit with [facility], [facility] or [facility] prescribing provider: 02/12/2015 CHOL 219 11/25/2014 HDL 65 11/25/2014 LDL 123 11/25/2014 TRIG 153 11/25/2014 CHOLHDLRATIO 3.4 11/25/2014 documented in this encounter Plan of Treatment Not on filedocumented as of this encounter Visit Diagnoses Diagnosis Hyperlipidemia with target LDL less than 130 - Primary Other and unspecified hyperlipidemia documented in this encounter Care Teams Lift Manager Relationship Specialty Start Date End Date Serum, Lurdes Truman, MD PCP - General Internal Medicine 06/11/14 12/16/20 documented as of this encounter
--- OUTSIDE RECORDS SUMMARY | 2022-01-26 11:55 | XMS_ITS | Encounter Summary ---
:1955 Author Organization [place] Address [address] [place] [address]. [place] [address] Care Team Providers Name Role Phone Lurdes Thomas MD Primary Care Provider [phone] Reason for Visit Reason Comments Recheck Medication Encounter Details Date Type Department Care Team Description 02/12/2015 [facility] Lurdes Thomas Back pain (Primary Dx); Uzair Laughlin MD Hyperlipidemia LDL goal < 130; [address] [employer] Prediabetes; [place] [address] [facility] Vitamin D deficiency; [phone] [address] [facility] Erectile d ysfunction; RD Screening for colon cancer; [place], [place] Screening for p rostate cancer [address] Social History Tobacco Use Types Packs/Day Years [...] list, Allergies, and Medical/Social/Surgical histories reviewed in [facility] andupdated as appropriate. OBJECTIVE: BP 100/62 mmHg [...] annual visit and as needed Lurdes Thomas [facility] UZAIR documented in this encounter Nursing Notes [...] Signature PSA 0.50 0 - 4 ug/L [facility] Specimen Anatomical Collection Method Collection Time Receive d Time (Source) Location / / Volume Laterality Blood specimen 02/12/2015 10:25 5 (specimen) AM CDT 10:30 AM CDT Lurdes Thomas MD LAB - BLOOD ORDERABLES Performing Organization Address City/State/ZIP Code Phon e Number [facility] [address] [place] [address] [facility] [address] [place] [address], [place] [phone] Vitamin D Deficiency (02/12/2015 10:25 AM CDT) P athologist Signature Vitamin D 29 20 - 75 [facility] Deficiency ug/L [place] [facility] Comment: Season, race, dietary intake, and treatm ent affect the concentration of 72-hxuctlm-Drnukqw D. Values may decrea se during winter [...] Organization Address City/State/ZIP Code Phon e Number [facility] [address] [place] [address] [facility] Glucose (02/12/2015 10:25 AM CDT) athologist Signature Glucose 94 70 - 99 [facility] mg/dL [facility] Specimen Anatomical Collection Method Collection Time Receive d Time (Source) Location / / Volume Laterality Blood specimen 02/12/2015 10:25 5 (specimen) AM CDT 10:30 AM CDT Lurdes Thomas MD LAB - BLOOD ORDERABLES Performing Organization Address City/State/ZIP Code Phon e Number [facility] [address] [place] [address] documented in this encounter Visit Diagnoses Diagnosis [...] prostate documented in this encounter Care Teams Barrel Header Relationship Specialty Start Date End Date Lurdes Thomas MD PCP - General Internal Medicine 06/11/14 12/16/20 documented as of this encounter
--- OUTSIDE RECORDS SUMMARY | 2022-01-26 11:56 | XMS_ITS | Encounter Summary ---
:1955 Author Organization [place] Address [address] [facility] [place] [address] Care Team Providers Name Role Phone Lurdes Thomas MD Primary Care Provider [phone] Encounter Details Date Type Department Care Team Description 07/08/2014 Medical Correspondence [facility], Non-Provider NEUROLOG Y-ORDER-2/ Health Info [facility] 11/2014 Srvcs [address] [place] [address] Social History Tobacco Use Types [...] filedocumented in this encounter Care Teams Adjunct Art History Instructor Relationship Specialty Start Date End Date Lurdes Thomas MD PCP - General Internal Medicine 06/11/14 12/16/20 documented as of this encounter
--- OUTSIDE RECORDS SUMMARY | 2022-01-26 11:56 | XMS_ITS | Encounter Summary ---
:1955 Author Organization [place] Address [address] [facility] [place] [address] Care Team Providers Name Role Phone Lurdes Thomas MD Primary Care Provider [phone] Reason for Visit Reason Comments Neurologic Problem Encounter Details Date Type Department Care Team Description 09/08/2014 Office Visit [facility] Arline Peñaloza S/Jana d eep brain Neurosurgery Clinic MARISOL Del Real [employer] MAKER stimulator placement [address] (Primary Dx) [address] [place], [place] [address] [address] [place] [address] Social History Tobacco Use [...] with tour of facility and escorted to [facility] for CT scan check in. - Patient [...] mins nursing discharge time --Nomi Martell MSN, HAZMAT CDL A DRIVER, CUSTOM [employer] MAKER-C signature documented in this encounter Plan of Treatment Not on filedocumented as of this encounter Visit Diagnoses Diagnosis S/P deep brain stimulator placement - Pr imary documented in this encounter Care Teams Film Process Operator Relationship Specialty Start Date End Date Lurdes Thomas MD PCP - General Internal Medicine 06/11/14 12/16/20 documented as of this encounter
--- OUTSIDE RECORDS SUMMARY | 2022-01-26 11:56 | XMS_ITS | Encounter Summary ---
:1955 Author Organization [place] Address [address] [facility] [place] [address] Care Team Providers Name Role Phone Lurdes Thomas MD Primary Care Provider [phone] Reason for Visit (Routine) - Closed Specialty Diagnoses / Procedures Referred By Contact Refer red To Contact Radiology / Radiology. Diagnoses R#NA, BC, Epic Order Sh Ct Scan Procedures CT HEAD [address] [place] [address] Phone: Referral ID Status Reason Start Date Expiration Date Visits Requ ested Visits Authorized [id number] Closed 08/11/2014 08/11/2015 1 1 Encounter Details Date Type Department Care Team Description 09/08/2014 Hospital Encounter [facility] Rachel Cuadra rkinson's disease [facility] Imaging Lm, LADLE LINER REEL CUTTER (H) [address] [place] [address] ORTHOPEDICS [phone] [place] [address] [place] [address] Social History Tobacco Use Types Packs/Day Years [...] Take 1 capsule 4 capsule 2 08/2602/12/2015 [address]15 UNIT (50,000 Units) by capsuleIndications: Vitamin mouth [...] abnormality. FAMILIA GUILLERMO MD Rachel Cuadra APRN REEL CUTTER IMG CT ORDERABLES documented in this encounter Visit Diagnoses Diagnosis Parkinson's disease (H) Paralysis agitans documented in this encounter Care Teams Projects Manager Relationship Specialty Start Date End Date Lurdes Thomas MD PCP - General Internal Medicine 06/11/14 12/16/20 documented as of this encounter
--- OUTSIDE RECORDS SUMMARY | 2022-01-26 11:56 | XMS_ITS | Encounter Summary ---
:1955 Author Organization [facility] Address [address] [place] [address]. [place] [address] Care Team Providers Name Role Phone Lurdes Thomas MD Primary Care Provider [phone] Reason for Visit Reason Onset Date Comments Other 07/21/2014 Pt. needs letter Encounter Details Date Type Department Care Team Description 07/21/2014 Telephone [facility] Gonzalez Rowland Other (Pt . needs Neurosurgery Clinic MD Tylor letter) See XX RESIGNED XX [address] [place] [address] [place] [address] [place] [address] [place] [address] [phone] Social History Tobacco Use Types Packs/Day Years [...] To discuss a letter he needs? Thanks HAULER HELPER documented in this encounter Plan of Treatment Not on filedocumented as of this encounter Visit Diagnoses Not on filedocumented in this encounter Care Teams Slimer Relationship Specialty Start Date End Date Lurdes Thomas MD PCP - General Internal Medicine 06/11/14 12/16/20 documented as of this encounter
--- OUTSIDE RECORDS SUMMARY | 2022-01-26 11:56 | XMS_ITS | Encounter Summary ---
:1955 Author Organization [facility] Address [address] [place] [address]. [place] [address] Care Team Providers Name Role Phone Lurdes Thomas MD Primary Care Provider [phone] Reason for Visit Reason Comments Pre-Op Exam Encounter Details Date Type Department Care Team Description 08/11/2014 Office Visit [facility] Lurdes Thomasop gen eral physical exam (Primary Dx); Uzair Laughlin MD Parkinson disease (H); [address] Leg swelling; [place] [address] [place] Acute bronchitis [phone] [place], [place] [address] Social History Tobacco Use Types Packs/Day [...] Thomas MD - 08/11/2014 2:01 PM CDT [address] [address] Dept: [phone] PRE-OP EVALUATION: Today's date: 08/11/2014 Andrew Pang (: 1955) presents for pre-operative evaluation assessment as requested by . He requires evaluation and anesthesia risk assessment prior to undergoing surgery/procedurefor treatment of Parkinson's . Proposed procedure: Deep Brain Stimulator insertion Date of Surgery/ Procedure: 09/09 Time of Surgery/ Procedure: 529 Hospital/Surgical Facility: [facility] Primary Physician: Lurdes Thomas Type of [...] cardiovascular risks for perioperative complications such as ([place], PE, VFib and 3?? AV Block): No [...] evaluation report is provided to requesting physician. [facility] Preop Guidelines documented in this encounter Nursing [...] bronchitis documented in this encounter Care Teams Signalling And Communications Engineer Relationship Specialty Start Date End Date Lurdes Thomas MD PCP - General Internal Medicine 06/11/14 12/16/20 documented as of this encounter
--- OUTSIDE RECORDS SUMMARY | 2022-01-26 11:56 | XMS_ITS | Encounter Summary ---
:1955 Author Organization [facility] Address [address] [facility] [place] [address] Care Team Providers Name Role Phone Lurdes Thomas MD Primary Care Provider [phone] Encounter Details Date Type Department Care Team Description 09/03/2014 Medical Correspondence [facility] FELICE Hernández KATHY [facility], Non-Provider MD-ORDER -09/03/2014 Health Info [facility] [address] [facility] [address] [place] [address] Social History Tobacco Use Types [...] on filedocumented in this encounter Care Teams Electric Vehicle Electrician Relationship Specialty Start Date End Date Lurdes Thomas MD PCP - General Internal Medicine 06/11/14 12/16/20 documented as of this encounter
--- OUTSIDE RECORDS SUMMARY | 2022-01-26 11:56 | XMS_ITS | Encounter Summary ---
:1955 Author Organization [facility] Address [address] [place] [address]. [place] [address] Care Team Providers Name Role Phone Lurdes Thomas MD Primary Care Provider [phone] Reason for Visit (Routine) - Closed Specialty Diagnoses / Procedures Referred By Contact Refer red To Contact Respiratory Therapy Diagnoses Hgb 15.4 drawn on 06/11/14 Rh Respiratory Ther Procedures PULMONARY FUNCTION TEST [address] [place] [address] Phone: Referral ID Status Reason Start Date Expiration Date Visits Requ ested Visits Authorized [id number] Closed 07/04/2014 07/04/2015 1 1 Encounter Details Date Type Department Care Team Description 07/08/2014 Hospital Encounter [facility] Lurdes Riosinson disease (H); Tere Laughlin MD SOB (shortness of breath) Therapy [facility] [address] [place], [place] [address] [place] [address] [phone] [place] [address] Social History Tobacco Use Types [...] Take 1 capsule 8 capsule 0 06/1208/01/2014 46907 UNIT (50,000 Units) by capsuleIndications: mouth every [...] 06/11/14. July 08, 2014.12:39 PM Shemar Hoang RED TRUCK DRIVER documented in this encounter Procedure Notes Juice Chanel MD - 07/09/2014 1:16 PM CSTAssociated Order(s): PULMONARY FUNCTION TEST Please see medical chart for graphs and statistics related to this report. REFERRING PHYSICIAN: Deidre Pang AIRPLANE PILOT CROP DUSTING: Shemar Hoang DIAGNOSIS: SOB, Parkinson's disease HEIGHT: [...] CHANEL MD MT: Name: DEIDRE PANG Account: [id number] : 1955 Procedure Date: 07/08/2014 Document: [id number] cc: Lurdes Thomas MD documented in this encounter Plan of Treatment Pending Results Name Type Priority Associated Diagnoses Date/Ti me PULMONARY FUNCTION TEST PFT Routine Parkinso n disease (H) 07/08/2014 11:58 AM ARMORED TRUCK DRIVER PROCEDURE SOB (shortness of breath) documented as of this encounter Procedures Procedure Name Priority Date/Time Associated Diagnosis Comme nts PFT GENERAL LAB 07/28/2014 1:58 PM Result s for this TESTING CDT procedure are i n the results section. PFT GENERAL LAB Routine 07/08/2014 11:58 AM Parkinson disease TESTING ARMORED TRUCK DRIVER (H) SOB (shortness of breath) PULMONARY FUNCTION 07/08/2014 12:00 AM TEST - HIM SCAN ARMORED TRUCK DRIVER documented in this encounter Results PULMONARY FUNCTION TEST (07/28/2014 1:58 PM CDT) Transcriptions Juice Chanel MD - 07/09/2014 1:16 PM CST Please see medical chart for graphs and statistics related to this report. REFERRING PHYSICIAN: Deidre Pang AIRPLANE PILOT CROP DUSTING: Shemar Hoang DIAGNOSIS: SOB, Parkinson's disease HEIGHT: [...] CHANEL MD MT: Name: DEIDRE PANG Account: [id number] : 1955 Procedure Date: 07/08/19 Document: [id number] cc: Lurdes Thomas MD Juice Chanel MD PFT ORDERABLES PULMONARY FUNCTION TEST - HIM SCAN (07/08/2014 12:00 AM ARMORED TRUCK DRIVER) Specimen (Source) Anatomical Location Collection Method / Collectio n Time Received Time / Laterality Volume 07/08/2014 Narrative This result has an attachment that is no t available. Provider Scan PFT ORDERABLES documented in this encounter Visit Diagnoses Diagnosis Parkinson disease (H) Paralysis agitans SOB (shortness of breath) Shortness of breath documented in this encounter Care Teams Flash Drier Operator Relationship Specialty Start Date End Date Lurdes Thomas MD PCP - General Internal Medicine 06/11/14 12/16/20 documented as of this encounter
--- OUTSIDE RECORDS SUMMARY | 2022-01-26 11:56 | XMS_ITS | Encounter Summary ---
:1955 Author Organization [facility] Address [address] [facility] [place] [address] Care Team Providers Name Role Phone Lurdes Thomas MD Primary Care Provider [phone] Reason for Visit Auth/Cert - Closed Specialty Diagnoses / Procedures Referred By Contact Refer red To Contact Surgery Diagnoses PARKINSONS DISEASE Sh Periop Services Procedures OPTICAL TRACKING SYSTEM INSERTION DEEP BRAIN STIMULATION BILATERAL [address] [place] [address] Phone: Referral ID Status Reason Start Date Expiration Date Visits Requ ested Visits Authorized [id number] Closed 1 1 Encounter Details Date Type Department Care Team Description 09/09/[address] [facility] Gonzalez Rowland BILATERAL SUBTHALMIC [place] PeriOP MD Tylor NUCLEUS DEEP BRAIN Services XX RESIGNED XX STIMULATOR [address] [place] [address] [place] [address] [phone] Surgery Details Date/Time Status Location OR Service [...] Neurosurgery 1 Arline Peñaloza APRN CNP Assisting Rfid Systems Engineer Shereen pretty 1 documented in this encounter [...] CDT documented in this encounter Discharge Summaries Racehl Cuadra APRN CNP - 09/10/2014 9:19 AM CDT [facility] Discharge Summary Neurosurgery Date of Admission: [...] up with further consultation recommendations. Rachel Cuadra [facility] [address] [place] [address] Pager [phone] Significant Results and Procedures NONE Pending Results Unresulted Labs Ordered in the Past 30 Days of this Admission No orders found for last 60 day(s). Code Status Full Code Primary Care Physician Lurdes Laughlin [facility] Physical Exam Temp: 97.9 ??F (36.6 [...] other recreational vehicles Call my office at [phone] for increasing redness, swelling or pus draining [...] deep brain stimulator placement vitamin D (ERGOCALCIFEROL) 11183 UNIT capsule Take 1 capsule (50,000 Units) [...] other recreational vehicles Call my office at [phone] for increasing redness, swelling or pus draining [...] Take 1 capsule 4 capsule 2 08/2602/12/2015 41027 UNIT (50,000 Units) by capsuleIndications: Vitamin mouth [...] Thomas MD - 08/25/2014 12:38 PM CDT [address] [place] [address] Dept: [phone] PRE-OP EVALUATION: Today's date: 08/25/2014 Andrew Pang [...] cardiovascular risks for perioperative complications such as ([place], PE, VFib and 3?? AV Block): No [...] care (reference Craniotomy/Craniectomy/Cranioplasty (Adult) CPG). Outcome: Improving [phone] Neuro: slight tremors hands, would freeze at [...] brain stimulator placement SURGEON: Gonzalez Rowland MD Rfid Systems Engineer: Arline Hutson NP 59 yo man with [...] eda holes were made with the 14mm oracle dba drill over the markedbony entry points. The [...] microelectrode were inserted at 15mm above target, [id number] and impedences confirmed <400kohms. I began advancing [...] effects. The decisionwas made to insert a [employer] 3389 macroelectrode with the distal 0 contact [...] The decision was made to insert a [employer] 3389 macroelectrode with the distal 0 contact [...] 8:20 CDT AM CDT Gonzalez Rowland MD [facility] POCT Performing Organization Address City/State/ZIP Code [...] stimulator leads. LOGAN GUILLERMO MD Arline Peñaloza CIRCUS RIDER SORTER UPHOLSTERY PARTS IMG CT ORDERABLES Hemoglobin (09/09/2014 6:10 AM CDT) athologist Signature Hemoglobin 14.8 13.3 - 17.7 [place] g/dL [facility] Specimen Anatomical Collection Method Collection Time Receive d Time (Source) Location / / Volume Laterality Blood specimen 09/09/2014 6:10 AM 015 6:13 (specimen) CDT AM CDT Jacquie Coughlin LAB - BLOOD ORDERABLES Performing Organization Address City/State/ZIP Code Phon e Number M [facility] [address] [place] [address] [place] [address] [place] [address] Potassium (09/09/2014 6:10 AM CDT) athologist Signature Potassium 3.4 3.4 - 5.3 [place] mmol/L [facility] Specimen Anatomical Collection Method Collection Time Receive d Time (Source) Location / / Volume Laterality Blood specimen 09/09/2014 6:10 AM 015 6:13 (specimen) CDT AM CDT Jacquie Coughlin LAB - BLOOD ORDERABLES Performing Organization Address City/State/ZIP Code Phon e Number [facility] [address] [place] [address] [phone] [place] [address] [place] [address] documented in this encounter Visit Diagnoses Not [...] Site /Surgical Site 09/09/14 at 0858, Intra-procedure didtuyqs-rcuhkhtdfc-ptpxdrifs-calcium Given 09/09/2014 4 mLs Operative (TISSEEL) topical [...] 09/10/2014 amantadine (SYMMETREL) capsule 100 mg (CANCELED) 7712 (Given - Provider: Nasim Haddad RN)2006 (Given - Provider: Nomi Manuel RN - Comment: Pt states he has not taken his two doses today.) 3328 (Given - Provider: Nomi Manuel RN)0917 (Given [...] RN)0754 (Given - Provider: Millicent Enciso APRN TIMBER INSPECTOR)0954 (Given - Provider: Millicent Enciso APRN CRNA) Routine, 2 g, Intravenous, PRE-OP/PRE-VA OCEDURE, Starting on Mon09/09/14 at 0543, For [...] Volume Adjustment - Provider: Millicent Enciso APRN TIMBER INSPECTOR)1020 (New Bag - Provider: Millicent Enciso APRN TIMBER INSPECTOR)1059 (Anesthesia Volume Adjustment - Provider: Millicent Enciso [...] RN) 0.3-0.5 mg, Intravenous, EVERY 30 MIN VA N, Starting Mon09/09/14 at 1209, Until Mon09/10/14 [...] PRN, Starting on Mon09/09/14 at 0858, Intra-procedure sjjlclfu-ofajywobvu-gmgwbwfpz-calcium (TISSEEL) topical solu tion (CANCELED) 0859 (Given - Provider: Gonzalez Rowland)0900 (Given - Provider: Gonzalez Rowland)0901 (Given - Provider: Gonzalez Rowland)0921 (Given - Provider: Gonzalez Rowland)0943 (Given - Provider: Gonzalez Rowland) PRN, Starting on Mon09/09/14 at 0859, Intra-procedure documented in this encounter Care Teams Fruit Packer Relationship Specialty Start Date End Date Lurdes Thomas MD PCP - General Internal Medicine 06/11/14 12/16/20 documented as of this encounter
--- OUTSIDE RECORDS SUMMARY | 2022-01-26 11:56 | XMS_ITS | Encounter Summary ---
:1955 Author Organization [facility] Address [address] [facility] [place] [address] Care Team Providers Name Role Phone Lurdes Thomas MD Primary Care Provider [phone] Encounter Details Date Type Department Care Team Description 09/11/2014 Telephone [facility] Nurse Eladia Muñoz, RN Advisors [address] [place] [address] Social History Tobacco Use Types Packs/Day [...] bandages are is very itchy. Will page oil exploration engineer for [facility] page uniform cap operator for spine [facility] brain clinic to have oil exploration engineer Dr. Rowland call Natasha @ [phone]. Did not complete infection screen for ebola. [...] as expected or comes out ? NO loading inspector (pump, infusion catheter) damaged or not functioning [...] least 15 seconds or use a hand manager land before and after touching the wound area. [...] on filedocumented in this encounter Care Teams Chemotherapist Relationship Specialty Start Date End Date Lurdes Thomas MD PCP - General Internal Medicine 06/11/14 12/16/20 documented as of this encounter
--- OUTSIDE RECORDS SUMMARY | 2022-01-26 11:56 | XMS_ITS | Encounter Summary ---
:1955 Author Organization [facility] Address [address] [place] [address]. [place] [address] Care Team Providers Name Role Phone Lurdes Thomas MD Primary Care Provider [phone] Reason for Visit Reason Onset Date [facility] F/U 09/11/2014 Parkinsons Disease, S/P Deep Brain Stimulator Placement, S/P Deep Brain Stimulato r Placement, 09/10/14, 0 Encounter Details Date Type Department Care Team Description 09/11/2014 Telephone [facility] F/U 14[address] [facility] MD [place] (Parkinsons Disease, [place] [address] [facility] S/P Deep Brain [phone] [place] Stimulator Placement, [address] [facility] S/P Deep B rain Stimulator Placement, [place], [place] [address] 09/10/14, 0 ) [phone] (Wo rk) Social History Tobacco Use Types [...] with information to call me back. Maggie banquet manager Nurse Telephone Encounter - Kiara Oviedo RN - 09/11/2014 12:52 PM CDT ED / Discharge Outreach Protocol Patient Contact Attempt # 1 Was call answered? No. Left message on voicemail with information to call me back. Telephone Encounter - Josy Garza - 09/11/2014 10:53 AM CDT Please contact patient for In-patient follow up. [phone] (home) None (work) Visit date: 09/10/14 Diagnosis listed:Parkinsons Disease, S/P Deep Brain Stimulator Placement, S/P Deep Brain Stimulator Placement Number of visits in past 12 months:0/1 documented in this encounter Plan of Treatment Not on filedocumented as of this encounter Visit Diagnoses Not on filedocumented in this encounter Care Teams Jewelry Store Manager Relationship Specialty Start Date End Date Lurdes Thomas MD PCP - General Internal Medicine 06/11/14 12/16/20 documented as of this encounter
--- OUTSIDE RECORDS SUMMARY | 2022-01-26 11:56 | XMS_ITS | Encounter Summary ---
:1955 Author Organization [facility] [facility] Address [address] [place] [address]. [place] [address] Care Team Providers Name Role Phone Lurdes Thomas MD Primary Care Provider [phone] Reason for Visit (Routine) - Closed Specialty Diagnoses / Procedures Referred By Contact Refer red To Contact Cardiology Procedures [facility] Electrocardiology EKG STRESS NM LEXISCAN [address] [place], [place] [address] Phone: Referral ID Status Reason Start Date Expiration Date Visits Requ ested Visits Authorized [id number] Closed 06/19/2014 06/19/2015 1 1 Encounter Details Date Type Department Care Team Description 06/25/[address] [facility] Lurdes Thomas SOB (shortness of Electrocardiolgy MD [place] breath) [address] [facility] [address] [place] [address] [place] [address] Social History Tobacco Use Types [...] Take 1 capsule 8 capsule 0 06/1208/01/2014 43026 UNIT (50,000 Units) by capsuleIndications: mouth every [...] adverse reactions to catarino injection. Rachel Segura ER FEEDER documented in this encounter Plan of Treatment Not on filedocumented as of this encounter Procedures Procedure Name Priority Date/Time Associated Diagnosis Comme nts NM MPI WITH Routine 06/25/2014 1:06 PM SOB (shortness of Resu lts for this LEXISCAN HOPPER FEEDER breath) procedure are i n the results section. documented in this encounter Results NM Lexiscan stress test (06/25/2014 1:06 PM HOPPER FEEDER) Anatomical Region Laterality Modality Chest Nuclear Medicine Specimen (Source) Anatomical Location Collection Method / Collectio n Time Received Time / Laterality Volume Narrative 06/26/2014 10:06 AM HOPPER FEEDER GATED MYOCARDIAL PERFUSION SCINTIGRAPHY WITH INTRAVENOUS PHARMACOLOGIC [...] (LEXISCAN) 0.4 MG/5ML Given 06/25/2014 11:30 AM HOPPER FEEDER injection Starting on Mon06/25/14 at 1148, For 1 dose, RACHEL SEGURA: cabinet override documented in this encounter Care Teams Image Consultant Relationship Specialty Start Date End Date Lurdes Thomas MD PCP - General Internal Medicine 06/11/14 12/16/20 documented as of this encounter
--- OUTSIDE RECORDS SUMMARY | 2022-01-26 11:56 | XMS_ITS | Encounter Summary ---
:1955 Author Organization [facility] Address [address] [place] [address]. [place] [address] Care Team Providers Name Role Phone Lurdes Thomas MD Primary Care Provider Reason for Visit Reason Onset Date Comments Refill Request 08/20/2014 PRAVASTATIN 80MG Encounter Details Date Type Department Care Team Description 08/20/2014 Refill [facility] Eag Lurdes Rojas Refill Request [address] [facility] MD [place] (PRAVASTATIN 80MG) [place] [address] [facility] [phone] [place] [address] (Wo rk) Social History Tobacco Use [...] hyperlipidemia documented in this encounter Care Teams Residential Gas Heat Technician Relationship Specialty Start Date End Date Lurdes Thomas MD PCP - General Internal Medicine 06/11/14 12/16/20 documented as of this encounter
--- OUTSIDE RECORDS SUMMARY | 2022-01-26 11:56 | XMS_ITS | Encounter Summary ---
:1955 Author Organization [place] Address [address] [facility] [place] [address] Care Team Providers Name Role Phone Lurdes Thomas MD Primary Care Provider [phone] Reason for Visit (Routine) - Closed Specialty Diagnoses / Procedures Referred By Contact Refer red To Contact Radiology / Radiology. Procedures Nuclear Medicine NM MPI WITH LEXISCAN [address] [place] [address] Phone: Fax: Referral ID Status Reason Start Date Expiration Date Visits Requ ested Visits Authorized [id number] Closed 06/20/2014 12/17/2014 1 1 Encounter Details Date Type Department Care Team Description 06/25/2014 Hospital Encounter [facility] Lurdes Thomas MD [address] [facility] [address] [address] [facility] [phone] [place], [place] [address] (Wo rk) Social History [...] Take 1 capsule 8 capsule 0 06/1208/01/2014 16557 UNIT (50,000 Units) by capsuleIndications: mouth every [...] (shortness of Resu lts for this LEXISCAN LAWYERS breath) procedure are i n the results section. documented in this encounter Visit Diagnoses Not on filedocumented in this encounter Administered Medications Inactive Administered Medications - up to 3 most recent administrations Medication Order MAR Action Action Date Dose Rate Site technetium Tc 99m tetrofosmin 2UD Given 06/25/2014 1:04 PM LAWYERS 3 0 mCi study ([place]) radioisotope injection 3-42 mCi 3-42 mCi, Intravenous, EVERY 2 HOURS, First dose on Mon06/25/14 at 1015, For 2 doses, Radioisotope, supplied by and administered by Nuclear Medicine. *HW* Given 06/25/2014 10:09 AM LAWYERS 10.4 mCi documented in this encounter Care Teams Telephone Collector Relationship Specialty Start Date End Date Lurdes Thomas MD PCP - General Internal Medicine 06/11/14 12/16/20 documented as of this encounter
--- OUTSIDE RECORDS SUMMARY | 2022-01-26 11:56 | XMS_ITS | Encounter Summary ---
:1955 Author Organization [place] Address [address] [place] [address]. [place] [address] Care Team Providers Name Role Phone Lurdes Thomas MD Primary Care Provider [phone] Reason for Visit Reason Comments Pre-Op Exam Encounter Details Date Type Department Care Team Description 08/25/2014 Office Visit [facility] Lurdes Thomasop gen eral physical exam (Primary Dx); Uzair Laughlin MD Parkinson disease (H); [address] [employer] Bilateral leg edema; [place] [address] [place] Leg swelling; [phone] [address] [facility] Vitamin D deficiency disease [address] [place], [place] [address] Social History Tobacco Use [...] MD - 08/25/2014 12:38 PM CDT [address] [address] Dept: [phone] PRE-OP EVALUATION: Today's date: 08/25/2014 Andrew Pang (: 1955) presents for pre-operative evaluation assessment as requested by . He requires evaluation and anesthesia risk assessment prior to undergoing surgery/procedurefor treatment of Parkinson's . Proposed procedure: Deep brain stimulator implant Date of Surgery/ Procedure: 09/09& Time of Surgery/ Procedure: 529 Hospital/Surgical Facility: [facility] Primary Physician: Lurdes Thomas Type of [...] cardiovascular risks for perioperative complications such as (TX, PE, VFib and 3?? AV Block): No [...] D 25 (L) 30 - 75 [facility] ug/L [facility] Comment: Season, race, dietary intake, and treatm ent affect the concentration of 14-bcewwmz-Bcidivp D. Values may decrea se during winter [...] Organization Address City/State/ZIP Code Phon e Number [facility] [address] [place] [address] [facility] (ABNORMAL) Basic metabolic panel (08/25/2014 1:08 PM CDT) Analysis Performed At [facility] logist Time Signature Sodium 137 133 - 144 [place] mmol/L [facility] Potassium 3.5 3.4 - 5.3 [place] mmol/L [facility] Chloride 100 94 - 109 [place] mmol/L [facility] Carbon Dioxide 28 20 - 32 [place] mmol/L [facility] Anion Gap 9 3 - 14 [place] mmol/L [facility] Glucose 132 (H) 70 - 99 [place] mg/dL [facility] Comment: Effective 12/18/2013, the reference range for this assay has changed to reflect new instrumentation/methodology. Urea Nitrogen 18 7 - 30 mg/dL [facility] Comment: Effective 12/18/2013, the reference range for this assay has changed to reflect new instrumentation/methodology. Creatinine 0.77 0.66 - 1.25 [facility] mg/dL [facility] GFR Estimate >90 >60 mL/min/1.7m2 [facility] LIN[facility] Non GFR Calc [facility] GFR Estimate If Black >90 >60 mL/min/1.7m2 [facility] GFR Calc [facility] Calcium 9.3 8.5 - 10.1 mg/dL [facility] Comment: Effective 12/18/2013, the reference range for this assay has changed to reflect new instrumentation/methodology. Specimen Anatomical Collection Method Collection Time Receive d Time (Source) Location / / Volume Laterality Blood specimen 08/25/2014 1:08 PM 015 1:09 (specimen) CDT PM CDT Lurdes Thomas MD LAB - BLOOD ORDERABLES Performing Organization Address City/State/ZIP Code Phon e Number [facility] [address] [place] [address] documented in this encounter Visit Diagnoses Diagnosis Preop general physical exam - Primary Other specified pre-operative examinatio n Parkinson disease (H) Paralysis agitans Bilateral leg edema Edema Leg swelling Swelling of limb Vitamin D deficiency disease Unspecified vitamin D deficiency documented in this encounter Care Teams Route Driver Salesperson Relationship Specialty Start Date End Date Lurdes Thomas MD PCP - General Internal Medicine 06/11/14 12/16/20 documented as of this encounter
--- OUTSIDE RECORDS SUMMARY | 2022-01-26 11:56 | XMS_ITS | Encounter Summary ---
:1955 Author Organization [place] Address [address] [place] [address]. [place] [address] Care Team Providers Name Role Phone Lurdes Thomas MD Primary Care Provider [phone] Reason for Visit Reason Comments Neurologic Problem DBS Consult Encounter Details Date Type Department Care Team Description [facility]/17[facility]2014 [facility] [address] [facility] [address] [place], [place] [address] Parkinson's disease [facility] Rachel Cuadra APRN MATHEMATICS PROFESSOR [facility] [address] [facility] [address] [place], [place] [address] (H) (Primary Dx) [address] [address] Social History Tobacco Use [...] Comments Blood Pressure 124/81 07/17/2014 9:15 AM HEAVY EQUIPMENT OPERATOR APPRENTICE Pulse 94 07/17/2014 9:15 AM HEAVY EQUIPMENT OPERATOR APPRENTICE Temperature 36.6 ??C (97.8 ??F) 07/17/2014 9:15 AM HEAVY EQUIPMENT OPERATOR APPRENTICE Respiratory Rate - - Oxygen Saturation 94% 07/17/2014 9:15 AM HEAVY EQUIPMENT OPERATOR APPRENTICE Inhaled Oxygen Concentration - - Weight 99.1 kg (218 lb 6.4 oz) 07/17/2014 9:15 AM HEAVY EQUIPMENT OPERATOR APPRENTICE Height 185.4 cm (6' 1) 07/17/2014 9:15 AM HEAVY EQUIPMENT OPERATOR APPRENTICE Body Mass Index 28.81 07/17/2014 9:15 AM HEAVY EQUIPMENT OPERATOR APPRENTICE documented in this encounter Patient Instructions Patient [...] no sleep medications the night before surgery Y EQUIPMENT OPERATOR APPRENTICE documented in this encounter Progress Notes Rachel Cuadra APRN CNP - 07/17/2014 9:22 AM CST [facility] Neurosurgery Consult Note CC: Tremors and legs are lockingup Primary care Provider: Lurdes Thomas Referring provider: Dr. Maria Esther Phan HPI: Andrew Pang is a 59 year old male with a history of Parkinsons disease. He was diagnosed in August of 2007. He has been treating at the [facility] as well as Dr. Phan. [...] at night. 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 He was [...] Outpatient Prescriptions Medication ??? vitamin D (ERGOCALCIFEROL) 44464 UNIT capsule ??? rotigotine (NEUPRO) 8 MG/24HR [...] Onset ??? Cardiovascular Mother CVA x4 and NV, s/p CABG in mid-late 60's ??? Cardiovascular Father NV, s/p CABG in mid-late 60's ??? Diabetes [...] of Parkinson's disease. [facility]. [...] agreement with recommendations and plan. Rachel Cuadra MATHEMATICS PROFESSOR [facility] [address] [place] [address] Pager [phone] Jordana Kline - 07/17/2014 9:18 AM CST [...] a DBS consult(Parkinsons) - referred by Dr. Phan([place]) 5 nursing intake time Jordana Kline CMA Discharge plan: Patient given After Visit Summary. He will be scheduled for Bilateral DBS 2 nursing discharge time Jordana Kline CMA signature Y EQUIPMENT OPERATOR APPRENTICE documented in this encounter Plan of Treatment [...] abnormality. FAMILIA GUILLERMO MD Rachel Cuadra APRN [facility] ORDERABLES MR Brain w/o & [...] planning purposes. COMPARISON: Diagnostic brain MRI from [facility] 05/26/2014. FINDINGS: The ventricles [...] planning purposes. COMPARISON: Diagnostic brain MRI from [facility] 05/26/2014. FINDINGS: The ventricles are normal in s ize. There is no midline shift. There are no extra-axial fluid co llections. There is no evidence for intracranial hemorrhage. IMPRESSION IMPRESSION: Treatment planning brain MRI images with no evidence for acute intracranial pathology. BETTY CLOUD MD Rachel Cuadra APRN MATHEMATICS PROFESSOR IMG MRI ORDERABLES documented in this encounter Visit Diagnoses Diagnosis Parkinson's disease (H) - Primary Paralysis agitans Parkinson's disease (H) Paralysis agitans Parkinson's disease (H) Paralysis agitans documented in this encounter Care Teams Coat Maker Relationship Specialty Start Date End Date Lurdes Thomas MD PCP - General Internal Medicine 06/11/14 12/16/20 documented as of this encounter
--- OUTSIDE RECORDS SUMMARY | 2022-01-26 11:56 | XMS_ITS | Encounter Summary ---
:1955 Author Organization [place] Address [address] [facility] [place] [address] Care Team Providers Name Role Phone Lurdes Thomas MD Primary Care Provider [phone] Reason for Visit (Routine) - Closed Specialty Diagnoses / Procedures Referred By Contact Refer red To Contact Radiology / Radiology. Procedures Nuclear Medicine [place] [facility]AN[facility] [address] [place] [address] Phone: Fax: Referral ID Status Reason Start Date Expiration Date Visits Requ ested Visits Authorized [id number] Closed 06/20/2014 12/17/2014 1 1 Encounter Details Date Type Department Care Team Description 06/25/2014 Hospital Encounter [facility] Lurdes Thomas MD [address] [facility] [address] 86[address] [facility] [phone] [place], [place] [address] (Wo rk) Social History [...] Take 1 capsule 8 capsule 0 06/1208/01/2014 05347 UNIT (50,000 Units) by capsuleIndications: mouth every [...] (shortness of Resu lts for this LEXISCAN PARKING LOT MANAGER breath) procedure are i n the results section. documented in this encounter Visit Diagnoses Not on filedocumented in this encounter Care Teams Boat Finisher Relationship Specialty Start Date End Date Lurdes Thomas MD PCP - General Internal Medicine 06/11/14 12/16/20 documented as of this encounter
--- OUTSIDE RECORDS SUMMARY | 2022-01-26 11:56 | XMS_ITS | Encounter Summary ---
:1955 Author Organization [place] Address [address] [facility] [place] [address] Care Team Providers Name Role Phone Lurdes Thomas MD Primary Care Provider [phone] Reason for Visit (Routine) - Closed Specialty Diagnoses / Procedures Referred By Contact Refer red To Contact Radiology / Radiology. Diagnoses R#NA, BC, Epic Order Sh Mri Procedures MR BRAIN WWO [address] [place] [address] Phone: Referral ID Status Reason Start Date Expiration Date Visits Requ ested Visits Authorized [id number] Closed 07/28/2014 07/28/2015 1 1 Encounter Details Date Type Department Care Team Description 08/26/2014 Hospital Encounter [facility] Rachel Cuadra rkinson's disease [facility] Imaging Lm, STYRENE DEHYDRATION REACTOR OPERATOR DIVISION MANAGER (H) [address] [address] ORTHOPEDICS [phone] [place] [address] [place], [place] [address] Social History Tobacco Use Types Packs/Day Years [...] Take 1 capsule 4 capsule 2 08/2602/12/2015 86259 UNIT (50,000 Units) by capsuleIndications: Vitamin mouth [...] planning purposes. COMPARISON: Diagnostic brain MRI from [facility] 05/26/2014. FINDINGS: The ventricles are normal [...] planning purposes. COMPARISON: Diagnostic brain MRI from [facility] 05/26/2014. FINDINGS: The ventricles are normal in s ize. There is no midline shift. There are no extra-axial fluid co llections. There is no evidence for intracranial hemorrhage. IMPRESSION IMPRESSION: Treatment planning brain MRI images with no evidence for acute intracranial pathology. BETTY CLOUD MD Rachel Cuadra STYRENE DEHYDRATION REACTOR OPERATOR DIVISION MANAGER IMG MRI ORDERABLES documented in this encounter [...] MRI. documented in this encounter Care Teams Bottom Stop Attacher Relationship Specialty Start Date End Date Lurdes Thomas MD PCP - General Internal Medicine 06/11/14 12/16/20 documented as of this encounter
--- OUTSIDE RECORDS SUMMARY | 2022-01-26 11:56 | XMS_ITS | Encounter Summary ---
:1955 Author Organization [place] Address [address] [place] [address]. [place] [address] Care Team Providers Name Role Phone Lurdes Thomas MD Primary Care Provider [phone] Reason for Referral Consultation - Closed Specialty Diagnoses / Procedures Referred By Contact Refer red To Contact Diagnoses Dyspnea on exertion Lurdes Thomas [facility] [address] [place], [place] [address] [facility] [address] [place] [address] Referral ID Status Reason Start Date Expiration Date Visits Requ ested Visits Authorized [id number] Closed 07/10/2014 01/06/2015 1 1 ITY CONSULTANT Encounter Details Date Type Department Care Team Description 07/10/2014 Orders Only [facility] Eag an Lurdes Thomas Dyspnea on exertion 1440 Demian Laughlin MD (Primary Dx) [place] [address] [facility] [phone] [address] [place] [address] Social History Tobacco Use Types [...] Type Priority Associated Diagnoses Order S [facility] Referral Routine Dyspnea on exertion Or dered: 07/10/2014 REFERRAL documented as of this encounter Visit Diagnoses Diagnosis Dyspnea on exertion - Primary Other dyspnea and respiratory abnormalit y documented in this encounter Care Teams Warehouse Order Puller Relationship Specialty Start Date End Date Lurdes Thomas MD PCP - General Internal Medicine 06/11/14 12/16/20 documented as of this encounter
--- OUTSIDE RECORDS SUMMARY | 2022-01-26 11:56 | XMS_ITS | Encounter Summary ---
:1955 Author Organization [place] Address [address] [place] [address] Care Team Providers Name Role Phone Lurdes Thomas MD Primary Care Provider [phone] Reason for Visit Auth/Cert - Closed Specialty Diagnoses / Procedures Referred By Contact Refer red To Contact Surgery Diagnoses PARKINSONS DISEASE Sh Periop Services Procedures IMPLANT PULSE GENERATOR SUBCUTANEOUS [address] [place] [address] Phone: Referral ID Status Reason Start Date Expiration Date Visits Requ ested Visits Authorized [id number] Closed 1 1 Encounter Details Date Type Department Care Team Description 09/16/2014 Hospital Encounter [facility] Gonzalez Rowland PreOP/Phase Liliam Snider II XX RESIGNED XX [address] [place] [address] [place] [address] [phone] Social History Tobacco Use Types Packs/Day Years [...] this encounter Discharge Summaries Arline Hutson APRN HARM REDUCTION WORKER - 09/16/2014 8:46 AM CDT Physician Discharge Summary Patient ID: Andrew Pang [id number] 59 year old 1955 Admit date: 09/16/2014 Discharge date and time: 09/16/2014 Admitting Physician: Gonzalez Rowland MD Discharge Physician: Arline Hutson [facility] Admission Diagnoses: PARKINSONS DISEASE Discharge Diagnoses: Parkinsons [...] deep brain stimulator placement vitamin D (ERGOCALCIFEROL) 51242 UNIT capsule Take 1 capsule (50,000 Units) [...] Deep Brain Stimulator Postop Instructions Dr. Rowland [phone] 1. Ok to shower after 3 days. [...] have aDBS and the contact number for [place] should be provided. ?? Some procedures require that the DBS system is turned off. [facility] can also instruct and guide regarding this. ?? You have been given a patient communications programmer that can check that the stimulator [...] Take 1 capsule 4 capsule 2 08/2602/12/2015 73145 UNIT (50,000 Units) by capsuleIndications: Vitamin mouth every 7 D deficiency disease days documented as of this encounter H&P Notes Corine Alexander - 09/11/2014 7:49 AM CDT The purpose of this note is to make the H&P performed in the clinic within the last 30 days available in the hospital surgical encounter. Source Note - Lurdes Thomas MD - 08/25/2014 12:38 PM CDT [address] [address] Dept: [phone] PRE-OP EVALUATION: Today's date: 08/25/2014 Andrew Pang (: 1955) presents for pre-operative evaluation assessment as requested by . He requires evaluation and anesthesia risk assessment prior to undergoing surgery/procedurefor treatment of Parkinson's . Proposed procedure: Deep brain stimulator implant Date of Surgery/ Procedure: 09/09& Time of Surgery/ Procedure: 529 Hospital/Surgical Facility: [facility] Primary Physician: Lurdes Thomas Type of [...] evaluation report is provided to requesting physician. [place] Preop Guidelines documented in this encounter Nursing [...] bilateral lead extensions SURGEON: Gonzalez Rowland MD Maintenance Instructor: Arline Hutson NP PROCEDURE: The patient was [...] Provider: Pavel Miner) Routine, 2 g, Intravenous, PRE-OP/PRE-SD OCEDURE, Starting on Mon09/16/14 at 0638, For [...] Post-procedure documented in this encounter Care Teams Press Tender Relationship Specialty Start Date End Date Lurdes Thomas MD PCP - General Internal Medicine 06/11/14 12/16/20 documented as of this encounter
--- OUTSIDE RECORDS SUMMARY | 2022-01-26 11:56 | XMS_ITS | Encounter Summary ---
:1955 Author Organization [place] Address [address] [facility] [place] [address] Care Team Providers Name Role Phone Lurdes Thomas MD Primary Care Provider [phone] Encounter Details Date Type Department Care Team Description 07/18/2014 Hospital Encounter [facility] Imaging [address] [facility] [place] [id number] Social History Tobacco Use Types Packs/Day Years [...] Take 1 capsule 8 capsule 0 06/1208/01/2014 68692 UNIT (50,000 Units) by capsuleIndications: mouth every [...] 11:24 AM R esults for this ABDOMEN MOLD DESIGNER procedure are i n the results section. documented in this encounter Results MR Digital Archive [place] (05/26/2014 11:24 AM MOLD DESIGNER) Specimen (Source) Anatomical Location Collection Method / Collectio n Time Received Time / Laterality Volume Narrative [facility] - 07/18/2014 11:24 AM MOLD DESIGNER <!--EPICS-->Digitized exam for comparison only; no results available<!--EPICE--> Radiology Non-Fv Credentialed Provider IMG EXTERNAL IM AGING ORDERABLES Performing Organization Address City/State/ZIP Code Phon e Number [facility] documented in this encounter Visit Diagnoses Not on filedocumented in this encounter Care Teams Executive Chairman Relationship Specialty Start Date End Date Lurdes Thomas MD PCP - General Internal Medicine 06/11/14 12/16/20 documented as of this encounter
--- OUTSIDE RECORDS SUMMARY | 2022-01-26 11:56 | XMS_ITS | Encounter Summary ---
:1955 Author Organization [place] Address [address] [place] [address] Care Team Providers Name Role Phone Lurdes Thomas MD Primary Care Provider [phone] Reason for Visit Auth/Cert - Closed Specialty Diagnoses / Procedures Referred By Contact Refer red To Contact Surgery Diagnoses PARKINSONS DISEASE Sh Periop Services Procedures OPTICAL TRACKING SYSTEM INSERTION DEEP BRAIN STIMULATION BILATERAL [address] [place] [address] Phone: Referral ID Status Reason Start Date Expiration Date Visits Requ ested Visits Authorized [id number] Closed 1 1 Encounter Details Date Type Department Care Team Description [facility]/09[facility]2014 [facility] Simone Snider MD Care XX RESIGNED XX [address] [place] [address] [place] [id number] Social History Tobacco Use Types Packs/Day Years [...] APRN CNP - 09/10/2014 9:19 AM CDT [facility] Discharge Summary Neurosurgery Date of Admission: [...] up with further consultation recommendations. Rachel Cuadra [facility] [address] [place] [address] Pager [phone] Significant Results and Procedures NONE Pending Results [...] other recreational vehicles Call my office at [phone] for increasing redness, swelling or pus draining [...] deep brain stimulator placement vitamin D (ERGOCALCIFEROL) 18794 UNIT capsule Take 1 capsule (50,000 Units) [...] encounter Discharge Instructions Discharge Rachel Muñoz APRN INDUSTRIAL PARAMEDIC - 09/10/2014 9:19 AM CDT Discharge instructions: No lifting of more than 10 pounds until follow up visit as scheduled Ok to walk as tolerated, avoid bedrest. Ok to use ice to areas. No contact sports until after follow up visit No high impact activities such as; running/jogging, Biking, snowmobile or 4 miller riding or any other recreational vehicles Call my office at [phone] for increasing redness, swelling or pus draining [...] Take 1 capsule 4 capsule 2 08/2602/12/2015 95061 UNIT (50,000 Units) by capsuleIndications: Vitamin mouth [...] Thomas MD - 08/25/2014 12:38 PM CDT [address] [address] Dept: [phone] PRE-OP EVALUATION: Today's date: 08/25/2014 Andrew Poly (: 1955) presents for pre-operative evaluation assessment as requested by . He requires evaluation and anesthesia risk assessment prior to undergoing surgery/procedurefor treatment of Parkinson's . Proposed procedure: Deep brain stimulator implant Date of Surgery/ Procedure: 09/09& Time of Surgery/ Procedure: 529 Hospital/Surgical Facility: [facility] Primary Physician: Lurdes Thomas Type of [...] cardiovascular risks for perioperative complications such as (FL, PE, VFib and 3?? AV Block): No [...] evaluation report is provided to requesting physician. [place] Preop Guidelines documented in this encounter Nursing [...] care (reference Craniotomy/Craniectomy/Cranioplasty (Adult) CPG). Outcome: Improving [id number] Neuro: slight tremors hands, would freeze at times with walking/transfer otherwise intact as pre hospitalization per pt. CV: Nicardipine weaned to off keeping SB/P 90-140. GI Eating well. U/O voiding. Discharge instructions reviewed and given, see paper sheets. [facility] w/cand volunteer Plan of Care [...] brain stimulator placement SURGEON: Gonzalez Rowland MD Farmworker Vegetable: Arline Hutson NP 59 yo man with [...] eda holes were made with the 14mm steamship agent drill over the markedbony entry points. [...] microelectrode were inserted at 15mm above target, [id number] and impedences confirmed <400kohms. I began advancing [...] effects. The decisionwas made to insert a Revenewtronic 3389 macroelectrode with the distal 0 contact [...] The decision was made to insert a Revenewtronic 3389 macroelectrode with the distal 0 contact [...] 8:20 CDT AM CDT Gonzalez Rowland MD [facility] POCT Performing Organization Address City/State/ZIP [...] stimulator leads. LOGAN GUILLERMO MD Arline Peñaloza STOCK SHEETS CLEANER INSPECTOR INDUSTRIAL PARAMEDIC IMG CT ORDERABLES Hemoglobin (09/09/2014 6:10 AM CDT) P athologist Signature Hemoglobin 14.8 13.3 - 17.7 [facility] g/dL [facility] Specimen Anatomical Collection Method Collection Time Receive d Time (Source) Location / / Volume Laterality Blood specimen 09/09/2014 6:10 AM 015 6:13 (specimen) CDT AM CDT [facility] LAB - BLOOD ORDERABLES Performing Organization Address City/State/ZIP Code Phon e Number M [facility] [address], [place] [address] [facility] [address] [place] [address] Potassium (09/09/2014 6:10 AM CDT) athologist Signature Potassium 3.4 3.4 - 5.3 [place] mmol/L [facility] Specimen Anatomical Collection Method Collection Time Receive d Time (Source) Location / / Volume Laterality Blood specimen 09/09/2014 6:10 AM 015 6:13 (specimen) CDT AM CDT [facility] LAB - BLOOD ORDERABLES Performing Organization Address City/State/ZIP Code Phon e Number [facility] [address] [place] [address] [facility] [address] [place] [address] documented in this encounter Visit Diagnoses Diagnosis [...] RN) 0751 (Rate/Dose Verify - Provider: Ivelisse Mccormack RN)1100 (Stopped - Provider: Ivelisse Mccormack RN) at 75 mL/hr, Intravenous, CONTINUOUS, Un til tolerating PO, Post-procedure, Starting Mon09/09/14 at 1215, Until Mon09/10/14 at 1701 lactated ringers infusion (CANCELED) 062 5 (New Bag - Provider: Lori Comer RN)0726 (Anesthesia Volume Adjustment - Provider: Millicent Enciso APRN PORCELAIN ENAMELER)1020 (New Bag - Provider: Millicent Enciso APRN CRNA)1059 (Anesthesia Volume Adjustment - Provider: Millicent Enciso APRN CRNA) at 75-100 mL/hr, Intravenous, CONTINUOUS , UNLESS otherwise indicated., Pre- procedure, Starting on Mon09/09/14 at 0545, Until Mon09/09/14 at 1053 niCARdipine 40 mg in 200 mL 0.9% NaCl (CARDENE) infusion (CA NCELED) 1215 (New Bag - Provider: Nasim Haddad RN)1638 (New Bag - Provider: Chloé Davalos RN)1732 (Rate/Dose Change - Provider: Chloé Davalos RN)2253 (New Bag - Provider: Nomi Manuel RN) 0330 (New Bag - Provider: Nomi Manuel RN)0700 (Rate/Dose Change - Provider: Nomi Manuel RN)0751 (Rate/Dose Verify - Provider: Ivelisse Mccormack RN)0910 [...] Pro vider: Gonzalez Rowland) PRN, Starting on 09/09/14 at 1012, Intra-procedure ceFAZolin 1000 mg + gentamicin 120 mg + NaCl 0.9% 1000 mL Nahid ttle (CANCELED) 0857 (Given - Provider: Gonzalez Rowland) PRN, Starting on 09/09/14 at 0857, Intra-procedure HYDROmorphone (PF) (DILAUDID) [...] Comment: used for intruments) PRN, Starting on Mon09/09/14 at 0858, Intra-procedure niCARdipine 40 mg in 200 mL 0.9% NaCl (CARDENE) infusion (CA NCELED) 0844 (New Bag - Provider: Millicent Enciso APRN CRNA - Comment: surgeon and MDA aware of infusion starting)0850 (Rate/Dose Change - Provider: Millicent Enciso APRN PORCELAIN ENAMELER)0853 (Rate/Dose Change - Provider: Millicent Enciso APRN CRNA) CONTINUOUS PRN, Starting on Mon09/09/14 at 0844, Anesthesia Intra-op 0900 (Rate/Dose Change - Provider: Millicent Enciso APRN CRNA)0915 (Rate/Dose Change - Provider: Millicent Enciso APRN CRNA)0930 (Rate/Dose Change - Provider: Millicent Enciso APRN CRNA)0945 (Rate/Dose Change - Provider: Millicent Enciso APRN CRNA) 1000 (Rate/Dose Scott ge - Provider: Millicent Enciso APRN CRNA)1018 (Rate/Dose Change - Provider: Millicent Enciso APRN CRNA)1025 (Rate/Dose Change - Provider: Millicent Enciso APRN PORCELAIN ENAMELER)1030 (Rate/Dose Change - Provider: Millicent Enciso APRN PORCELAIN ENAMELER) 1040 (Rate/Dose Scott ge - Provider: Millicent Enciso APRN CRNA)1045 (Rate/Dose Change - Provider: Millicent Enciso APRN CRNA)1050 (Rate/Dose Change - Provider: Millicent Enciso APRN CRNA)1059 (Rate/Dose Change - Provider: Millicent Enciso APRN CRNA) 1106 (Rate/Dose Veri fy - Provider: Cami Alves, JAMAL)1110 (Rate/Dose Change - Provider: Cami Alves, RN)1156 (ED Infusing on Admission/transfer - Provider: Cami Alves RN) sodium chloride 0.9% (bottle) irrigation (CANCELED) 0900 (Given - Provider: Gonzalez Rowland) PRN, Starting on Mon09/09/14 at 0900, Intra-procedure thrombin 5000 UNITS vial (CANCELED) 0858 (Given - Provider: Gonzalez Rowland) PRN, Starting on Mon09/09/14 at 0858, Intra-procedure biueqckf-zrugutbbxz-inhpghmwm-calcium (TISSEEL) topical solu tion (CANCELED) 0859 (Given - Provider: Gonzalez Rowland)0900 (Given - Provider: Gonzalez Rowland)0901 (Given - Provider: Gonzalez Rowland)0921 (Given - Provider: Gonzalez Rowland)0943 (Given - Provider: Gonzalez Rowland) PRN, Starting on Mon09/09/14 at 0859, Intra-procedure documented in this encounter Care Teams Rn Lpn Lvn Relationship Specialty Start Date End Date Lurdes Thomas MD PCP - General Internal Medicine 06/11/14 12/16/20 documented as of this encounter
--- OUTSIDE RECORDS SUMMARY | 2022-01-26 11:56 | XMS_ITS | Encounter Summary ---
:1955 Author Organization [place] Address [address] [place] [address] Care Team Providers Name Role Phone Lurdes Thomas MD Primary Care Provider [phone] Reason for Visit Auth/Cert - Closed Specialty Diagnoses / Procedures Referred By Contact Refer red To Contact Surgery Diagnoses PARKINSONS DISEASE Sh Periop Services Procedures OPTICAL TRACKING SYSTEM INSERTION DEEP BRAIN STIMULATION BILATERAL [address] [place] [address] Phone: Referral ID Status Reason Start Date Expiration Date Visits Requ ested Visits Authorized [id number] Closed 1 1 Encounter Details Date Type Department Care Team Description 09/09/2014 Anesthesia Event [facility] Andrew Narayan [place] [facility] shyann [facility]ITTA[facility]ER [address] [facility] [address] [place]ESIOLOGIS [place] [id number] [phone] [place] [address] Anesthesia Record Procedure [...] benefits and alternatives discussed with: patient or manufacturer representative. . History & Physical Review History [...] Arline Hutson APRN CNP vitamin D (ERGOCALCIFEROL) 13655 UNIT capsule Take 1 capsule (50,000 Units) [...] results for input(s): INR in the last 56299 hours. Invalid input(s): APTT RECENT LABS: ECG: NSR ECHO: CXR: documented in this encounter Miscellaneous Notes Anesthesia Care Transfer Note - Millicent Enciso APRN STREAMING MEDIA SPECIALIST - 09/09/2014 10:58 AM CDT Anesthesia Care [...] mg documented in this encounter Care Teams Ceramic Sprayer Relationship Specialty Start Date End Date Lurdes Thomas MD PCP - General Internal Medicine 06/11/14 12/16/20 documented as of this encounter
--- OUTSIDE RECORDS SUMMARY | 2022-01-26 11:57 | XMS_ITS | Encounter Summary ---
:1955 Author Organization [place] Address [address] [place] [address]. [place] [address] Care Team Providers Name Role Phone Lurdes Thomas MD Primary Care Provider [phone] Encounter Details Date Type Department Care Team Description 06/11/[address] [facility] Lurdes Thomas (shortness of Uzair Laughlin MD breath) [address] [employer] [facility] [address] [address] [phone] [place] [address] Social History Tobacco Use Types [...] AM SOB (shortness of Results for this BALCONY WORKER breath) procedure are i n the results section. documented in this encounter Results XR Chest 2 Views (06/11/2014 8:52 AM BALCONY WORKER) Anatomical Region Laterality Modality Chest Computed Radiography Specimen (Source) Anatomical Location Collection Method / Collectio n Time Received Time / Laterality Volume Impressions 06/11/2014 9:24 AM BALCONY WORKER IMPRESSION: ??Negative. APOLONIA PACE MD Narrative 06/11/2014 9:24 AM BALCONY WORKER XR CHEST 2 VW ??06/11/2014 8:52 AM [...] breath documented in this encounter Care Teams Leakage Tester Relationship Specialty Start Date End Date Lurdes Thomas MD PCP - General Internal Medicine 06/11/14 12/16/20 documented as of this encounter
--- OUTSIDE RECORDS SUMMARY | 2022-01-26 11:57 | XMS_ITS | Encounter Summary ---
:1955 Author Organization [facility] Address [address] [place] [address]. [place] [address] Care Team Providers Name Role Phone Lurdes Thomas MD Primary Care Provider [phone] Reason for Visit Reason Comments Hypertension labs Encounter Details Date Type Department Care Team Description 07/27/2011 Office Visit [facility] Lurdes Thomas (Primary Dx); Uzair Laughlin MD Hyperlipidemia LDL goal < 130; [address] Parkinson disease (H); [place] [address] [place] Screening for diabetes mellitus [phone] [address] [place] [address] Social History Tobacco Use Types [...] Comments Blood Pressure 124/70 07/27/2011 10:04 AM MARKETING PROJECT SPECIALIST Pulse 65 07/27/2011 10:04 AM MARKETING PROJECT SPECIALIST Temperature 36.3 ??C (97.3 ??F) 07/27/2011 10:04 AM MARKETING PROJECT SPECIALIST Respiratory Rate - - Oxygen Saturation - - Inhaled Oxygen Concentration - - Weight 87.7 kg (193 lb 6.4 oz) 07/27/2011 10:04 AM MARKETING PROJECT SPECIALIST Height 186.7 cm (6' 1.5) 07/27/2011 10:04 AM MARKETING PROJECT SPECIALIST Body Mass Index 25.17 07/27/2011 10:04 AM MARKETING PROJECT SPECIALIST documented in this encounter Patient Instructions Patient InstructionsLurdes Laughlin MD - 07/27/2011 10:35 AM MARKETING PROJECT SPECIALIST 1. Labs today: cholesterol, electrolytes, diabetes screen, liver function and kidney function 2. Consider checking blood pressure when get hot/flushed feeling 3. Keep a log of when it happens, how Parkinson's is that day, any increased medications, stress/anxiety level ETING PROJECT SPECIALIST documented in this encounter Progress Notes Lurdes [...] Parkinson's, HLP. Lurdes Laughlin MD Internal Medicine/Pediatrics ETING PROJECT SPECIALIST documented in this encounter Nursing Notes 07/27/2011 [...] sults for this DIRECT LDL PANEL AM MARKETING PROJECT SPECIALIST goal < 130 procedure a re in the results section. COMPREHENSIVE Routine 07/27/2011 10:35 Hyperlipidemia LDL Resu lts for this METABOLIC PANEL AM MARKETING PROJECT SPECIALIST goal < 130 procedure are in Screening for diabetes the r esults mellitus section. documented in this encounter Results Comprehensive metabolic panel (07/27/2011 10:35 AM MARKETING PROJECT SPECIALIST) P athologist Signature Sodium 138 133 - 144 [place] [facility] mmol/L [facility] Potassium 4.2 3.4 - 5.3 [place] [facility] mmol/L [facility] Chloride 105 94 - 109 [place] [facility] mmol/L [facility] Carbon Dioxide 21 20 - 32 [facility] mmol/L [facility] Anion Gap 11 6 - 17 [facility] mmol/L [facility] Glucose 99 60 - 99 [facility] mg/dL [facility] Urea Nitrogen 18 7 - 30 [facility] mg/dL [facility] Creatinine 0.80 0.66 - [facility] 1.25 mg/dL [facility] GFR Estimate >90 >60 [facility] mL/min/1.7 [facility] m2 GFR Estimate If >90 >60 [facility] Black mL/min/1.7 [facility] m2 Calcium 9.3 8.5 - 10.4 [facility] mg/dL [facility] Bilirubin Total 0.7 0.2 - 1.3 [facility] Albumin 4.2 3.3 - 4.9 [place] [facility] g/dL [facility] Comment: Reference range changed on 01/21. Protein Total 7.4 6.8 - 8.8 g/dL [place] [facility] Comment: As of 07, reference range reflects plasma specimen type. Alkaline Phosphatase 87 40 - 150 U/L [facility] ALT 20 0 - 70 U/L [facility] AST 35 0 - 45 U/L [facility] LAB Specimen Anatomical Collection Method Collection Time Receive d Time (Source) Location / / Volume Laterality Blood specimen 07/27/2011 10:35 2 (specimen) AM MARKETING PROJECT SPECIALIST 10:38 AM MARKETING PROJECT SPECIALIST Lurdes Thomas MD LAB - BLOOD ORDERABLES Performing Organization Address City/State/ZIP Code Phon e Number [facility] [address] [place] [address] [facility] (ABNORMAL) Lipid panel reflex to direct LDL (07/27/2011 10:35 AM MARKETING PROJECT SPECIALIST) P athologist Signature Cholesterol 236 (H) 0 - 200 [facility] mg/dL CLINIC LAB Comment: LDL Cholesterol is the primary guide to therapy. The NCEP recommends further evaluation of: patients with cholesterol greater than 200 mg/dL if additional risk facto rs are present, cholesterol greater than 240 mg/dL, triglycerides greater than 1 50 mg/dL, or HDL less than 40 mg/dL. Triglycerides 121 0 - 150 mg/dL [facility] HDL Cholesterol 60 40 - 110 mg/dL [facility] LDL Cholesterol Calculated 152 (H) 0 - 129 mg/dL [facility] Comment: LDL Cholesterol is the primary guide to therapy: LDL-cholesterol goal in high risk patients is <100 mg/dL and in very high risk patients is <70 mg/dL. VLDL-Cholesterol 24 0 - 30 mg/dL [facility] Cholesterol/HDL Ratio 3.9 0.0 - 5.0 [facility] Specimen Anatomical Collection Method Collection Time Receive d Time (Source) Location / / Volume Laterality Blood specimen 07/27/2011 10:35 2 (specimen) AM MARKETING PROJECT SPECIALIST 10:38 AM MARKETING PROJECT SPECIALIST Lurdes Thomas MD LAB - BLOOD ORDERABLES Performing Organization Address City/State/ZIP Code Phon e Number [address] [address] [facility] documented in this encounter Visit Diagnoses Diagnosis [place] - Primary Hyperlipidemia LDL goal < 130 Other and unspecified hyperlipidemia Parkinson disease (H) Paralysis agitans Screening for diabetes mellitus documented in this encounter Care Teams Cutting And Printing Machine Operator Relationship Specialty Start Date End Date Lurdes Thomas MD PCP - General Internal Medicine 04/12/10 04/03/13 documented as of this encounter
--- OUTSIDE RECORDS SUMMARY | 2022-01-26 11:57 | XMS_ITS | Encounter Summary ---
:1955 Author Organization [facility] Address [address] [place] [address]. [place] [address] Care Team Providers Name Role Phone Lurdes Thomas MD Primary Care Provider [phone] Reason for Visit Reason Onset Date Comments Pt. Information/instruction 10/26/2011 Physical the rapy Encounter Details Date Type Department Care Team Description 10/26/2011 Telephone [facility] Lurdes Rojas Pt. [address] [facility] MD [place] Information/instruction [place] [phone] [facility] (Physical therapy) [phone] [place] [phone] (Wo rk) Social History Tobacco Use [...] took him to a chiropractor here in [place] who does the ultrasound treatments. He got [...] on filedocumented in this encounter Care Teams Crochet Beader Relationship Specialty Start Date End Date Lurdes Thomas MD PCP - General Internal Medicine 04/12/10 04/03/13 documented as of this encounter
--- OUTSIDE RECORDS SUMMARY | 2022-01-26 11:57 | XMS_ITS | Encounter Summary ---
:1955 Author Organization [place] Address [address] [place] [address]. [place] [address] Care Team Providers Name Role Phone Lurdes Thomas MD Primary Care Provider Reason for Visit Reason Onset Date Comments Medication Request 10/24/2011 robaxin Encounter Details Date Type Department Care Team Description 10/24/2011 Telephone [facility] [place] Lurdes Rojas Medication Request [address] [facility] MD [place] (robaxin) [place] [address] [facility] [phone] [address] (Wo rk) Social History Tobacco Use [...] on filedocumented in this encounter Care Teams Stone Driller Helper Relationship Specialty Start Date End Date Lurdes Thomas MD PCP - General Internal Medicine 04/12/10 04/03/13 documented as of this encounter
--- OUTSIDE RECORDS SUMMARY | 2022-01-26 11:57 | XMS_ITS | Encounter Summary ---
:1955 Author Organization [place] Address [address] [place] [address]. [place] [address] Care Team Providers Name Role Phone Oli Thomas MD Primary Care Provider [phone] Reason for Visit Reason Comments Breathing Problem Encounter Details Date Type Department Care Team Description 06/11/2014 Office Visit [facility] Oli Thomas SOB (shor tness of breath) (Primary Dx); Uzair Laughlin MD Fatigue; 14[address] Vitamin D deficiency disease ; [place] [address] [place] Lower extremity edema; [phone] [facility] GERD (ghazala roesophageal reflux disease) [place], [place] [address] Social History Tobacco Use [...] Comments Blood Pressure 114/70 06/11/2014 8:04 AM AUDITOR Pulse 99 06/11/2014 8:04 AM AUDITOR Temperature 36.9 ??C (98.5 ??F) 06/11/2014 8:04 AM AUDITOR Respiratory Rate - - Oxygen Saturation 94% 06/11/2014 8:04 AM AUDITOR Inhaled Oxygen Concentration - - Weight 95.6 kg (210 lb 12.8 oz) 06/11/2014 8:04 AM AUDITOR Height 186.7 cm (6' 1.5) 06/11/2014 8:04 AM AUDITOR Body Mass Index 27.43 06/11/2014 8:04 AM AUDITOR documented in this encounter Patient Instructions Patient InstructionsSerumOli MD - 06/11/2014 9:03 AM AUDITOR 1. Labs today: liver function, kidney function, blood counts, vitamin D levels 2. You will be contacted to set up the stress test and echocardiogram (ultrasound) of the heart TOR documented in this encounter Progress Notes Oli [...] likely in July. Insurance recently changed and [facility]. Was seen at [facility] last year. Reviewed labs in care everywhere. [...] list, Allergies, and Medical/Social/Surgical histories reviewed in [facility] andupdated as appropriate. OBJECTIVE: BP [...] with Provider - 1 month Oli Thomas [facility] UZAIR TOR documented in this encounter Nursing Notes Tamy [...] using cuff size: large Tamy Leahy LPN TOR documented in this encounter Miscellaneous Notes Addendum Note - Oli Thomas MD - 06/12/2014 4:46 PM AUDITOR Addended by: OLI THOMAS on: 06/12/2014 04:46 PM Modules accepted: Orders TOR documented in this encounter Plan of Treatment Not on filedocumented as of this encounter Procedures Procedure Name Priority Date/Time Associated Comments Diagnosis CBC WITH PLATELETS & Routine 06/11/2014 9:05 AM SOB (shortness of Results for this DIFFERENTIAL AUDITOR breath) procedure are in Fatigue the results section. VITAMIN D DEFICIENCY Routine 06/11/2014 9:05 AM Vitamin D R esults for this SCREENING AUDITOR deficiency disease procedure are in the results section. COMPREHENSIVE Routine 06/11/2014 9:05 AM SOB (shortness of Res ults for this METABOLIC PANEL AUDITOR breath) procedure are in Fatigue the results Lower extremity section. edema EKG 12-LEAD COMPLETE Routine 06/11/2014 SOB (shortness of Re sults for this W/READ - CLINICS breath) procedure a re in the results section. documented in this encounter Results NM Lexiscan stress test (06/25/2014 1:06 PM AUDITOR) Anatomical Region Laterality Modality Chest Nuclear Medicine Specimen (Source) Anatomical Location Collection Method / Collectio n Time Received Time / Laterality Volume Narrative 06/26/2014 10:06 AM AUDITOR GATED MYOCARDIAL PERFUSION SCINTIGRAPHY WITH INTRAVENOUS PHARMACOLOGIC [...] (ABNORMAL) Vitamin D Deficiency (06/11/2014 9:05 AM AUDITOR) P athologist Signature Vitamin D 21 (L) 30 - 75 [facility] Deficiency ug/L [place] MEDICAL screening [facility] Comment: Season, race, dietary intake, and treatm ent affect the concentration of 07-qbzlbzt-Hdntqfu D. Values may decrea se during winter [...] specimen 06/11/2014 9:05 AM 015 9:07 (specimen) AUDITOR AM AUDITOR Oli Thomas MD LAB - BLOOD ORDERABLES Performing Organization Address City/State/ZIP Code Phon e Number [address] [address] [facility] CBC with platelets differential (06/11/2014 9:05 AM AUDITOR) [facility] gist Method Time Signature WBC 4.8 4.0 - [facility] 11.0 CLINICS 10e9/L U[facility] RBC Count 5.06 4.4 - 5.9 [facility] 10e12/L [facility] Hemoglobin 15.4 13.3 - [facility] 17.7 g/dL [facility] Hematocrit 46.8 40.0 - [facility] 53.0 % [facility] MCV 93 78 - 100 [place] fl [facility] MCH 30.4 26.5 - [facility] 33.0 pg [facility] MCHC 32.9 31.5 - [facility] 36.5 g/dL [facility] RDW 12.7 10.0 - [facility] 15.0 % [facility] Platelet Count 205 150 - 450 [facility] 10e9/L [facility] Diff Method Automated [place] Method [facility] % Neutrophils 55.7 % [place] [facility] % Lymphocytes 32.6 % [place] [facility] % Monocytes 9.8 % [place] [facility] % Eosinophils 1.5 % [place] [facility] % Basophils 0.4 % [place] [facility] Absolute 2.7 1.6 - 8.3 [facility] Neutrophil 10e9/L [facility] Absolute 1.6 0.8 - 5.3 [facility] Lymphocytes 10e9/L [facility] Absolute 0.5 0.0 - 1.3 [facility] Monocytes 10e9/L [facility] Absolute 0.1 0.0 - 0.7 [facility] Eosinophils 10e9/L [facility] Absolute 0.0 0.0 - 0.2 [facility] Basophils 10e9/L [facility] Specimen Anatomical Collection Method Collection Time Receive d Time (Source) Location / / Volume Laterality Blood specimen 06/11/2014 9:05 AM 015 9:07 (specimen) AUDITOR AM AUDITOR Oli Thomas MD LAB - BLOOD ORDERABLES Performing Organization Address City/State/ZIP Code Phon e Number [facility] U[facility] [address] [place] [address] (ABNORMAL) Comprehensive metabolic panel (06/11/2014 9:05 AM AUDITOR) Analysis Performed At [facility] logis Time Signature Sodium 139 133 - 144 [place] mmol/L [facility] Potassium 4.7 3.4 - 5.3 [place] mmol/L [facility] Chloride 104 94 - 109 [place] mmol/L [facility] Carbon Dioxide 31 20 - 32 [place] mmol/L [facility] Anion Gap 4 3 - 14 [place] mmol/L [facility] Glucose 102 (H) 70 - 99 [place] mg/dL [facility] Comment: Effective 12/18/2013, the reference range for this assay has changed to reflect new instrumentation/methodology. Urea Nitrogen 21 7 - 30 mg/dL [place] [facility] Comment: Effective 12/18/2013, the reference range for this assay has changed to reflect new instrumentation/methodology. Creatinine 0.82 0.66 - 1.25 [facility] mg/dL [facility] GFR Estimate >90 >60 mL/min/1.7m2 [facility] Non GFR Calc [facility] GFR Estimate If Black >90 >60 mL/min/1.7m2 F [facility] GFR Calc [facility] Calcium 9.1 8.5 - 10.1 mg/dL [place] [facility] Comment: Effective 12/18/2013, the reference range for this assay has changed to reflect new instrumentation/methodology. Bilirubin Total 0.6 0.2 - 1.3 mg/dL [facility] Albumin 4.1 3.4 - 5.0 g/dL [facility] S [facility] Protein Total 7.5 6.8 - 8.8 g/dL [place] CL INICS [facility] Alkaline Phosphatase 106 40 - 150 U/L [facility] ALT 20 0 - 70 U/L [facility] AST 37 0 - 45 U/L [facility] Specimen Anatomical Collection Method Collection Time Receive d Time (Source) Location / / Volume Laterality Blood specimen 06/11/2014 9:05 AM 015 9:07 (specimen) AUDITOR AM AUDITOR Oli Thomas MD LAB - BLOOD ORDERABLES Performing Organization Address City/State/ZIP Code Phon e Number [facility] [address] [place] [address] XR Chest 2 Views (06/11/2014 8:52 AM AUDITOR) Anatomical Region Laterality Modality Chest Computed Radiography Specimen (Source) Anatomical Location Collection Method / Collectio n Time Received Time / Laterality Volume Impressions 06/11/2014 9:24 AM AUDITOR IMPRESSION: ??Negative. CYNTHIA PACE MD Narrative 06/11/2014 9:24 AM AUDITOR XR CHEST 2 VW ??06/11/2014 8:52 AM [...] breath documented in this encounter Care Teams Seafood Preparer Relationship Specialty Start Date End Date Oli Thomas MD PCP - General Internal Medicine 06/11/14 12/16/20 documented as of this encounter
--- OUTSIDE RECORDS SUMMARY | 2022-01-26 11:57 | XMS_ITS | Encounter Summary ---
:1955 Author Organization [place] Address [address] [place] [address]. [place] [address] Care Team Providers Name Role Phone Lurdes Thomas MD Primary Care Provider [phone] Reason for Referral Referral not Required - Closed Specialty Diagnoses / Procedures Referred By Contact Refer red To Contact Diagnoses Cervical radicular pain Francisco Kitchen MD [employer] [facility] [address] [place] [address] 9[address] [facility] [place] [address] [address] [place] [address] Phone: [phone] Referral ID Status Reason Start Date Expiration Date Visits Requ ested Visits Authorized [id number] Closed 10/25/2011 04/22/2012 1 1 Reason for Visit Reason Comments Back Pain Encounter Details Date Type Department Care Team Description 10/25/2011 Office Visit [facility] Francisco Kitchen DDD (degene rative disc disease), cervical; Uzair Currie MD Cervical radicular pain [address] [place] [address] [place] [address] [facility] [phone] [place] [address] Social History Tobacco Use [...] Body Mass Index 24.6 07/27/2011 10:04 AM CUSTOMER BUSINESS MANAGER documented in this encounter Patient Instructions [...] nos documented in this encounter Care Teams Can Closing Machine Operator Relationship Specialty Start Date End Date Lurdes Thomas MD PCP - General Internal Medicine 04/12/10 04/03/13 documented as of this encounter
--- OUTSIDE RECORDS SUMMARY | 2022-01-26 11:57 | XMS_ITS | Encounter Summary ---
:1955 Author Organization [place] Address [address] [place] [address]. [place] [address] Care Team Providers Name Role Phone Lurdes Thomas MD Primary Care Provider [phone] Reason for Visit Reason Onset Date Comments Refill Request 06/08/2012 pravastatin Encounter Details Date Type Department Care Team Description 06/08/2012 Refill [facility] Eag Lurdes Rojas Refill Request 1440 [facility] MD [place] (pravastatin) [place] [address] [facility] [phone] [address] (Wo rk) Social History [...] mailed to schedule appointment. Jeannine Waldron RN L SASH SETTER Telephone Encounter - Jeannine Waldron - 06/08/2012 1:33 PM CST Med requested: pravastatin Last office visit: 07/27/11 BP Readings from Last 1 Encounters: 10/25/11 104/66 Last pertinent lab: CHOL 236 07/27/2011 HDL 60 07/27/2011 LDL 152 07/27/2011 TRIG 121 07/27/2011 CHOLHDLRATIO 3.9 07/27/2011 AST 35 07/27/2011 ALT 20 07/27/2011 Jeannine Waldron RN L SASH SETTER documented in this encounter Plan of Treatment Not on filedocumented as of this encounter Visit Diagnoses Diagnosis Hyperlipidemia LDL goal < 130 - Primary Other and unspecified hyperlipidemia documented in this encounter Care Teams Keyseater Operator Relationship Specialty Start Date End Date Martha, Lurdes Laughlin MD PCP - General Internal Medicine 04/12/10 04/03/13 documented as of this encounter
--- OUTSIDE RECORDS SUMMARY | 2022-01-26 11:57 | XMS_ITS | Encounter Summary ---
:1955 Author Organization [place] Address [address] [place] [address]. [place] [address] Care Team Providers Name Role Phone Lurdes Thomas MD Primary Care Provider [phone] Reason for Visit Reason Onset Date Comments Lab Result Notice 07/28/2011 Encounter Details Date Type Department Care Team Description 07/28/2011 Telephone [facility] Eag an Lurdes Thomas Lab Result Notice 1440 [facility] [place] [address] [facility] [phone] [address] (Wo rk) Social History [...] Lurdes Laughlin MD - 07/28/2011 9:25 PM ELECTRIC GOLF CART REPAIRERS LDL not at goal, needs increased dose. Lurdes Laughlin MD Internal Medicine/Pediatrics TRIC GOLF CART REPAIRERS documented in this encounter Plan of Treatment Not on filedocumented as of this encounter Visit Diagnoses Diagnosis Hyperlipidemia LDL goal < 130 - Primary Other and unspecified hyperlipidemia documented in this encounter Care Teams Cell Tower Climber Relationship Specialty Start Date End Date Lurdes Thomas MD PCP - General Internal Medicine 04/12/10 04/03/13 documented as of this encounter
--- OUTSIDE RECORDS SUMMARY | 2022-01-26 11:57 | XMS_ITS | Encounter Summary ---
:1955 Author Organization [place] Address [address] [place] [address]. [place] [address] Care Team Providers Name Role Phone Lurdes Thomas MD Primary Care Provider [phone] Reason for Visit Reason Comments Establish Care Encounter Details Date Type Department Care Team Description 04/12/2010 Office Visit [facility] Lurdes Thomas Erectile dysfunction (Primary Dx); Uzair Laughlin MD Parkinson disease (H); 14[address] [employer] Hyperlipidemia LDL goal < 13 0; [place] [address] [place] Restless leg [phone] [place] [address] Social History Tobacco Use Types [...] Comments Blood Pressure 122/60 04/12/2010 10:07 AM JOURNEY LINEMAN Pulse 70 04/12/2010 10:07 AM JOURNEY LINEMAN Temperature - - Respiratory Rate - - Oxygen Saturation - - Inhaled Oxygen Concentration - - Weight 87 kg (191 lb 12.8 oz) 04/12/2010 10:07 AM JOURNEY LINEMAN Height 186.7 cm (6' 1.5) 04/12/2010 10:07 AM JOURNEY LINEMAN Body Mass Index 24.96 04/12/2010 10:07 AM JOURNEY LINEMAN documented in this encounter Progress Notes Lurdes [...] MG tablet Lurdes Laughlin MD Internal Medicine/Pediatrics NEY LINEMAN documented in this encounter Nursing Notes 04/12/2010 [...] (RLS) documented in this encounter Care Teams Florist'S Decorator Relationship Specialty Start Date End Date Lurdes Thomas MD PCP - General Internal Medicine 04/12/10 04/03/13 documented as of this encounter
--- OUTSIDE RECORDS SUMMARY | 2022-01-26 11:57 | XMS_ITS | Encounter Summary ---
:1955 Author Organization [place] Address [address] [place] [address]. [place] [address] Care Team Providers Name Role Phone Lurdes Thomas MD Primary Care Provider [phone] Reason for Visit Reason Comments Physical Encounter Details Date Type Department Care Team Description 10/15/[address] [facility] Lurdes Thomas Routine g eneral medical examination at a health care facility (Primary Dx); Uzair Laughlin MD Restless leg syndrome; 1440 [place] Hyperlipidemia LDL goal < 13 0; [place] [address] [facility] Erectile dysfunction; [phone] 8675 [facility] Parkinson disease (H); RD Screening for colon cancer; [place], [place] Screening for p rostate cancer; [address] Screening for diabetes mellitus Social History Tobacco [...] effects. All Histories reviewed and updated in [facility]. ROS: C: NEGATIVE for fever, chills, [...] Signature PSA 0.85 0 - 4 ug/L [facility] Specimen Anatomical Collection Method Collection Time Receive d Time (Source) Location / / Volume Laterality Blood specimen 10/15/2010 8:32 AM 011 8:37 (specimen) CDT AM CDT Lurdes Thomas MD LAB - BLOOD ORDERABLES Performing Organization Address City/[facility] Code Phon e Number [facility] [address] [place] [address] [facility] Ferritin (10/15/2010 8:32 AM CDT) athologist Signature Ferritin 47 20 - 300 [facility] ng/mL CLINIC LAB Specimen Anatomical Collection Method Collection Time Receive d Time (Source) Location / / Volume Laterality Blood specimen 10/15/2010 8:32 AM 011 8:37 (specimen) CDT AM CDT Lurdes Thomas MD LAB - BLOOD ORDERABLES Performing Organization Address City/[facility] Phon e Number [facility] [address] [place] [address] [facility] (ABNORMAL) Comprehensive metabolic panel (10/15/2010 8:32 AM CDT) P athologist Signature Sodium 142 133 - 144 [place] mmol/L CLINIC LAB Potassium 4.7 3.4 - 5.3 [facility]L [facility] Chloride 103 94 - 109 [facility] mmol/L [facility] Carbon Dioxide 28 20 - 32 [place] mmol/L [facility]INIC LAB Anion Gap 11 6 - 17 [facility] mmol/L [facility] Comment: CORRECTED ON 10/18 AT 1537: PRE VIOUSLY REPORTED 10 Glucose 101 (H) 60 - 99 mg/dL [facility] LIN LAB Urea Nitrogen 21 7 - 30 mg/dL [facility] Creatinine 0.99 0.66 - 1.25 mg/dL [facility] GFR Estimate 79 >60 mL/min/1.7m2 [place] [facility] Comment: CORRECTED ON 10/18 AT 1537: PRE VIOUSLY REPORTED Not Calculated GFR Estimate If Black >90 >60 mL/min/1.7m2 F [facility] CORRECTED ON 10/18 AT 1537: PREVIOUSLY REPORTED Not Tres culated CLINIC LAB Calcium 9.0 8.5 - 10.4 mg/dL [facility] LAB Bilirubin Total 0.7 0.2 - 1.3 mg/dL [facility] Albumin 4.2 3.9 - 5.1 g/dL [facility] Comment: Reference range changed on 01/21. Protein Total 7.1 6.8 - 8.8 g/dL [facility] Comment: As of 07, reference range reflects plasma specimen type. Alkaline Phosphatase 77 40 - 150 U/L [facility] EW [facility] CLINIC LAB ALT 15 0 - 70 U/L [facility] CLIN IC LAB AST 31 0 - 55 U/L [facility] CLIN IC LAB Specimen Anatomical Collection Method Collection Time Receive d Time (Source) Location / / Volume Laterality Blood specimen 10/15/2010 8:32 AM 011 8:37 (specimen) CDT AM CDT Lurdes Thomas MD LAB - BLOOD ORDERABLES Performing Organization Address City/[facility] Phon e Number [facility] [address] [place] [address] [phone] [facility] (ABNORMAL) Lipid Profile (10/15/2010 8:32 AM CDT) P athologist Signature Cholesterol 232 (H) 0 - 200 [facility] mg/dL CLINIC LAB Comment: LDL Cholesterol is the primary guide to therapy. The NCEP recommends further evaluation of: patients with cholesterol greater than 200 mg/dL if additional risk facto rs are present, cholesterol greater than 240 mg/dL, triglycerides greater than 1 50 mg/dL, or HDL less than 40 mg/dL. Triglycerides 95 0 - 150 mg/dL [facility] HDL Cholesterol 56 40 - 110 mg/dL [facility] LDL Cholesterol Calculated 157 (H) 0 - 129 mg/dL [facility] Comment: LDL Cholesterol is the primary guide to therapy: LDL-cholesterol goal in high risk patients is <100 mg/dL and in very high risk patients is <70 mg/dL. VLDL-Cholesterol 19 0 - 30 mg/dL [facility] Cholesterol/HDL Ratio 4.1 0.0 - 5.0 [facility] Comment: CORRECTED ON 10/18 AT 1537: PRE VIOUSLY REPORTED 4.2 Specimen Anatomical Collection Method Collection Time Receive d Time (Source) Location / / Volume Laterality Blood specimen 10/15/2010 8:32 AM 011 8:37 (specimen) CDT AM CDT Lurdes Thomas MD LAB - BLOOD ORDERABLES Performing Organization Address [facility] Phon e Number [facility] [address] [place] [address] [phone] [facility] documented in this encounter Visit Diagnoses [...] mellitus documented in this encounter Care Teams Parts Administrator Relationship Specialty Start Date End Date Lurdes Thomas MD PCP - General Internal Medicine 04/12/10 04/03/13 documented as of this encounter
--- OUTSIDE RECORDS SUMMARY | 2022-01-26 11:57 | XMS_ITS | Encounter Summary ---
:1955 Author Organization [place] Address [address] [facility] [place] [address] Care Team Providers Name Role Phone Lurdes Thomas MD Primary Care Provider [phone] Reason for Visit (Routine) - Closed Specialty Diagnoses / Procedures Referred By Contact Refer red To Contact Radiology / Radiology. Procedures Nuclear Medicine [place] [facility] [address] [place] [address] Phone: Fax: Referral ID Status Reason Start Date Expiration Date Visits Requ ested Visits Authorized [id number] Closed 06/20/2014 06/20/2015 1 1 Encounter Details Date Type Department Care Team Description 06/25/2014 Hospital Encounter [facility] Lurdes Thomas MD [address] [facility] [address] 8675 [facility] [phone] [place], [place] [address] (Wo rk) Social History [...] Take 1 capsule 8 capsule 0 06/1208/01/2014 88067 UNIT (50,000 Units) by capsuleIndications: mouth every [...] (shortness of Resu lts for this LEXISCAN RODENT CONTROL WORKER breath) procedure are i n the results section. documented in this encounter Visit Diagnoses Not on filedocumented in this encounter Care Teams Senior Publications Specialist Relationship Specialty Start Date End Date Lurdes Thomas MD PCP - General Internal Medicine 06/11/14 12/16/20 documented as of this encounter
--- OUTSIDE RECORDS SUMMARY | 2022-01-26 11:57 | XMS_ITS | Encounter Summary ---
:1955 Author Organization [facility] Address [address] [place] [address]. [place] [address] Care Team Providers Name Role Phone Lurdes Thomas MD Primary Care Provider Reason for Visit Reason Onset Date Comments Back Pain 07/20/2011 6 wk follow up Encounter Details Date Type Department Care Team Description 07/20/2011 Telephone [facility] Lurdes Oh Back Pain (6 wk follow 1440 [facility] MD [place] up) [place] [address] [facility] [phone] [address] (Wo rk) Social History Tobacco Use [...] patient. Kristina Brandt RN Telephone Encounter - lBanca Brandt - 09/02/2011 10:24 AM CDT Left message on cell for patient to return call or send [employer]hart message on how he is doing with backpain. Kristina Brandt RN Telephone Encounter - Maki Major - 08/22/2011 3:28 PM CDT LOW BACK PAIN nursing triage 6 week follow-up: Maki Major [facility] Tele[facility] Encounter - Blanca Brandt - 07/20/2011 10:38 AM CST Please post pone and call patient for 6wk follow up of low back pain on or around 08/22/11. Kristina Brandt RN RECLAIMER documented in this encounter Plan of Treatment Not on filedocumented as of this encounter Visit Diagnoses Not on filedocumented in this encounter Care Teams Teacher Emotionally Impaired Relationship Specialty Start Date End Date Lurdes Thomas MD PCP - General Internal Medicine 04/12/10 04/03/13 documented as of this encounter
--- OUTSIDE RECORDS SUMMARY | 2022-01-26 11:57 | XMS_ITS | Encounter Summary ---
:1955 Author Organization [place] Address [address] [place] [address]. [place] [address] Care Team Providers Name Role Phone Lurdes Thomas MD Primary Care Provider [phone] Reason for Visit Reason Onset Date Comments Results 10/20/2010 Encounter Details Date Type Department Care Team Description 10/20/2010 Telephone [facility] Eag Lurdes Rojas, Results 1440 [facility] [place] [address] [facility] [phone] 8675 [place], [place] [address] (Wo rk) Social History Tobacco Use [...] hyperlipidemia documented in this encounter Care Teams Width Stripper Relationship Specialty Start Date End Date Lurdes Thomas MD PCP - General Internal Medicine 04/12/10 04/03/13 documented as of this encounter
--- OUTSIDE RECORDS SUMMARY | 2022-01-26 11:57 | XMS_ITS | Encounter Summary ---
:1955 Author Organization [place] Address [address] [facility] [address] Care Team Providers Name Role Phone Lurdes Thomas MD Primary Care Provider [phone] Encounter Details Date Type Department Care Team Description 06/18/2014 Medical Correspondence [facility], GOALS AND CONCERNS [facility], Non-Provider Health Info Mgmt [facility] [address] [facility] [address] [place] [address] Social History Tobacco Use Types [...] on filedocumented in this encounter Care Teams Bank Analyst Relationship Specialty Start Date End Date Lurdes Thomas MD PCP - General Internal Medicine 06/11/14 12/16/20 documented as of this encounter
--- OUTSIDE RECORDS SUMMARY | 2022-01-26 11:57 | XMS_ITS | Encounter Summary ---
:1955 Author Organization [place] Address [address] [place] [address]. [place] [address] Care Team Providers Name Role Phone Lurdes Thomas MD Primary Care Provider [phone] Reason for Visit Reason Onset Date Comments Chronic Care Conference Provider Overview 12/29/2010 Encounter Details Date Type Department Care Team Description 12/29/2010 Telephone [facility] Lurdes Oh Chronic Care Conference 14[address] [facility] MD [place] Provider Overview [place] [address] [facility] [phone] [address] (Wo rk) Social History Tobacco [...] filedocumented in this encounter Care Teams Senior Project Manager Engineering Relationship Specialty Start Date End Date Lurdes Thomas MD PCP - General Internal Medicine 04/12/10 04/03/13 documented as of this encounter
--- OUTSIDE RECORDS SUMMARY | 2022-01-26 11:57 | XMS_ITS | Encounter Summary ---
:1955 Author Organization [place] Address [address] [place] [address]. [place] [address] Care Team Providers Name Role Phone Lurdes Thomas MD Primary Care Provider [phone] Reason for Visit (Routine) - Closed Specialty Diagnoses / Procedures Referred By Contact Refer red To Contact Cardiology Diagnoses 06/16-reminder ltr sent Rh Echo cc Procedures ECH COMPLETE [address] [facility] [address] [place], [place] [address] Phone: Fax: Referral ID Status Reason Start Date Expiration Date Visits Requ ested Visits Authorized [id number] Closed 06/17/2014 06/17/2015 1 1 Encounter Details Date Type Department Care Team Description 06/25/2014 [facility] MD [place] breath) Heart Care [facility] [address] [facility] [address] [place] [address] [place], [place] [phone] [id number] Social History Tobacco Use Types Packs/Day Years [...] Take 1 capsule 8 capsule 0 06/1208/01/2014 46658 UNIT (50,000 Units) by capsuleIndications: mouth every [...] (shortness o f Results for this OPTISON PAD EXTRACTION TENDER breath) procedure are i n the results section. documented in this encounter Results ECHO COMPLETE WITH OPTISON (06/25/2014 2:19 PM PAD EXTRACTION TENDER) Anatomical Region Laterality Modality Echocardiography Specimen (Source) Anatomical Collection Method Collection Time Re ceived Time Location / / Volume Laterality 06/25/2014 1:34 PM PAD EXTRACTION TENDER Narrative 06/25/2014 4:24 PM PAD EXTRACTION TENDER Interpretation Summary Left ventricular systolic function [...] to 2mL with Given 06/25/2014 2:12 PM PAD EXTRACTION TENDER 2 mLs saline (OPTISON) diluted injection 2 mL 2 mL, Intravenous, ONCE, On Mon06/25/14 at 1415, For 1 dose, 3mL Optison / 6mL Saline solution documented in this encounter Care Teams Supervisor Delivery Department Relationship Specialty Start Date End Date Lurdes Thomas MD PCP - General Internal Medicine 06/11/14 12/16/20 documented as of this encounter
--- OUTSIDE RECORDS SUMMARY | 2022-01-26 11:57 | XMS_ITS | Encounter Summary ---
:1955 Author Organization [place] Address [address] [place] [address]. [place] [address] Care Team Providers Name Role Phone Unavailable Primary Care Provider Unavailable Reason for Visit Reason Onset Date Comments Outreach 04/04/2013 Preventative health screening Encounter Details Date Type Department Care Team Description 04/04/2013 Telephone [facility] Eag Lurdes Rojas Outreach (Preventative 14[address] [facility] MD [place] health screening) [place] [address] [employer] [phone] [address] (Wo rk) Social History Tobacco Use [...] Comments: Per patient, he has swtiched to [facility] due to insurance change, [facility]. Outreach Hand Tile Maker Charanjit Amaro L BILLING COORDINATOR documented in this encounter Plan of Treatment Not on filedocumented as of this encounter Visit Diagnoses Not on filedocumented in this encounter
--- OUTSIDE RECORDS SUMMARY | 2022-01-26 11:57 | XMS_ITS | Encounter Summary ---
:1955 Author Organization [place] Address [address] [place] [address]. [place] [address] Care Team Providers Name Role Phone Unavailable Primary Care Provider Unavailable Reason for Visit Reason Onset Date Comments Refill Request 11/06/2013 Pravachol Encounter Details Date Type Department Care Team Description 11/06/2013 Refill [facility] Eag an Martha, Lurdes Refill Request 1440 [facility] MD [place] (Pravachol ) [place] [address] [facility] [phone] [address] (Wo rk) Social History [...] of 03/2013-Per patient, he has swtiched to [facility] due to insurance change, no longer seen through the [facility] network. Maame Major RN Telephone Encounter - [...]
--- OUTSIDE RECORDS SUMMARY | 2022-01-26 11:57 | XMS_ITS | Encounter Summary ---
:1955 Author Organization [place] Address [address] [place] [address]. [place] [address] Care Team Providers Name Role Phone Lurdes Thomas MD Primary Care Provider [phone] Reason for Visit Reason Comments Refill Request lab draw Encounter Details Date Type Department Care Team Description 09/20/2012 Office Visit [facility] Lurdes Thomas Hyperlipi demkatlyn LDL goal < 130 (Primary Dx); Uzair Laughlin MD Parkinson disease (H); 1440 [facility] Prediabetes; [place] [address] [facility] Screening for diabetes mellitus; [phone] 86[address] [facility] [place] [address] Social History Tobacco Use Types Packs/Day Years [...] Body Mass Index 23.75 07/27/2011 10:04 AM ELECTROTYPE CASTER documented in this encounter Patient Instructions Patient [...] list, Allergies, and Medical/Social/Surgical histories reviewed in [facility] andupdated as appropriate. OBJECTIVE: BP 112/62 [...] Provider - 1 year Lurdes Thomas MD [facility] documented in this encounter Nursing Notes 09/20/2012 8:00 AM CDT >> ERROL WARREN [facility] September 20, 2012 8:08 AM Patient presents [...] athologist Signature Sodium 139 133 - 144 [facility] mmol/L [facility] Potassium 4.6 3.4 - 5.3 [facility] mmol/L [facility] Chloride 101 94 - 109 [facility] mmol/L [facility] Carbon Dioxide 31 20 - 32 [facility] mmol/L [facility] Anion Gap 7 6 - 17 [facility] mmol/L [facility] Glucose 104 (H) 60 - 99 [facility] mg/dL CLINIC LAB Comment: Fasting specimen Urea Nitrogen 24 7 - 30 mg/dL [facility] N [facility] Creatinine 0.94 0.66 - 1.25 mg/dL [facility] GFR Estimate 83 >60 mL/min/1.7m2 [facility] GFR Estimate If Black >90 >60 mL/min/1.7m2 F [facility] Calcium 8.8 8.5 - 10.4 mg/dL [facility] Bilirubin Total 1.0 0.2 - 1.3 mg/dL [facility] Albumin 4.1 3.3 - 4.9 g/dL [facility] Comment: Reference range changed on 01/21. Protein Total 7.0 6.8 - 8.8 g/dL [facility] Comment: As of 07, reference range reflects plasma specimen type. Alkaline Phosphatase 81 40 - 150 U/L [facility] CLINIC LAB ALT 17 0 - 70 U/L [facility] CLIN IC LAB AST 54 (H) 0 - 45 U/L [facility] CLIN IC LAB Specimen Anatomical Collection Method Collection Time Receive d Time (Source) Location / / Volume Laterality Blood specimen 09/20/2012 8:17 AM 013 8:22 (specimen) CDT AM CDT Lurdes Thomas MD LAB - BLOOD ORDERABLES Performing Organization Address City/State/ZIP Code Phon e Number [facility] [address] [place] [address] [facility] LAB [address] [place] [address] Lipid panel reflex to direct LDL (09/20/2012 8:17 AM CDT) athologist Signature Cholesterol 178 0 - 200 [facility] mg/dL CLINIC LAB Comment: LDL Cholesterol is the primary guide to therapy. The NCEP recommends further evaluation of: patients with cholesterol greater than 200 mg/dL if additional risk facto rs are present, cholesterol greater than 240 mg/dL, triglycerides greater than 1 50 mg/dL, or HDL less than 40 mg/dL. Triglycerides 83 0 - 150 mg/dL [facility] HDL Cholesterol 66 40 - 110 mg/dL [facility] LDL Cholesterol Calculated 95 0 - 129 mg/dL [facility] Comment: LDL Cholesterol is the primary guide to therapy: LDL-cholesterol goal in high risk patients is <100 mg/dL and in very high risk patients is <70 mg/dL. VLDL-Cholesterol 17 0 - 30 mg/dL [facility] Cholesterol/HDL Ratio 2.7 0.0 - 5.0 [facility] Specimen Anatomical Collection Method Collection Time Receive d Time (Source) Location / / Volume Laterality Blood specimen 09/20/2012 8:17 AM 013 8:22 (specimen) CDT AM CDT Lurdes Thomas MD LAB - BLOOD ORDERABLES Performing Organization Address City/State/ZIP Code Phon e Number [facility] [address] [place] [address] [facility] [address] [place] [address] documented in this encounter Visit Diagnoses Diagnosis Hyperlipidemia LDL goal < 130 - Primary Other and unspecified hyperlipidemia Parkinson disease (H) Paralysis agitans Prediabetes Other abnormal glucose Screening for diabetes mellitus Screening for colon cancer Special screening for malignant neoplasm s, colon documented in this encounter Care Teams Rib Builder Relationship Specialty Start Date End Date Lurdes Thomas MD PCP - General Internal Medicine 04/12/10 04/03/13 documented as of this encounter
--- OUTSIDE RECORDS SUMMARY | 2022-01-26 11:57 | XMS_ITS | Encounter Summary ---
:1955 Author Organization [place] Address [address] [place] [address]. [place] [address] Care Team Providers Name Role Phone Lurdes Thomas MD Primary Care Provider [phone] Encounter Details Date Type Department Care Team Description 03/15/2011 Hospital Encounter [facility] Lurdes Thomas of [facility] MD [place] extremity, right [address] [facility] [address] [place] [address] [place] [address] Social History Tobacco Use Types [...] limb documented in this encounter Care Teams Senior Insight Manager International Relationship Specialty Start Date End Date Lurdes Thomas MD PCP - General Internal Medicine 04/12/10 04/03/13 documented as of this encounter
--- OUTSIDE RECORDS SUMMARY | 2022-01-26 11:57 | XMS_ITS | Encounter Summary ---
:1955 Author Organization [place] Address [address] [place] [address]. [place] [address] Care Team Providers Name Role Phone Lurdes Thomas MD Primary Care Provider [phone] Reason for Visit Reason Onset Date Comments Musculoskeletal Problem 07/13/2010 Muscle aches and weakness Encounter Details Date Type Department Care Team Description 07/13/2010 Telephone [facility] Lurdes Thomas Musculosk eletal Problem Uzair Laughlin MD (Muscle aches and 1440 [facility] weakness) [place] [address] [place] [phone] 8675 [place], [place] [address] Social History Tobacco Use [...] - Lurdes Laughlin - 07/16/2010 12:46 PM THUMB SEWER Called and discussed with patient. Previously on [...] be evaluated. Lurdes Laughlin MD Internal Medicine/Pediatrics B SEWER Telephone Encounter - Lurdes Laughlin - 07/15/2010 4:14 PM THUMB SEWER Attempted again to call pt and at home and on cell. Left a message on cell. Asked pt to call or willtry back tomorrow. Lurdes Laughlin MD Internal Medicine/Pediatrics B SEWER Telephone Encounter - Lurdes Laughlin - 07/15/2010 12:41 PM THUMB SEWER Attempted to call patient to follow-up. Left a message at home. Will call back later. Lurdes Laughlin MD Internal Medicine/Pediatrics B SEWER Telephone Encounter - Lurdes Laughlin - 07/13/2010 3:38 PM THUMB SEWER Agree with the above. Ok for trial off simvastatin, but should also talk with Neurologist. II will call Andrew on . Thanks! Lurdes Laughlin MD Internal Medicine/Pediatrics B SEWER Telephone Encounter - Maki Major - 07/13/2010 [...] be reached until . 's number is [phone]. Maame Major RN B SEWER documented in this encounter Plan of Treatment Not on filedocumented as of this encounter Visit Diagnoses Not on filedocumented in this encounter Care Teams Four Slide Machine Setter Relationship Specialty Start Date End Date Lurdes Thomas MD PCP - General Internal Medicine 04/12/10 04/03/13 documented as of this encounter
--- OUTSIDE RECORDS SUMMARY | 2022-01-26 11:57 | XMS_ITS | Encounter Summary ---
:1955 Author Organization [place] Address [address] [place] [address]. [place] [address] Care Team Providers Name Role Phone Lurdes Thomas MD Primary Care Provider Reason for Visit Reason Onset Date Comments Back Pain 07/11/2011 3 day follow up Encounter Details Date Type Department Care Team Description 07/11/2011 Refill [facility] Lurdes Oh Back Pain (3 day follow 1440 [facility] MD [place] up) [place] [address] [facility] [phone] [address] (Wo rk) Social History [...] to correct posture; stop aggravating activities. ?? Mcvt-xjc-qrrxjlk pain medications for short term symptom control. [...] provider immediately. Medications for Pain Relief Recommended lpoi-dtv-vfjperx non-steroidal anti-inflammatories: Ibuprofen (Advil, Motrin) 600 mg. [...] this several times a day. Developed by [employer] Published by [employer]. Last modified: 2008-06-29 Last reviewed: 2007-11-26 This content is reviewed periodically and is subject to change as new health information becomes available. The information is intended to inform and educate and is not a replacement for medical evaluation, advice, diagnosis or treatment by a healthcare professional. Adult Health Advisor 2009.1 Index Adult Health Advisor 2009.1 Credits ?? 2009 [facility] and/or its affiliates. All Rights Reserved. LOGY TEACHER documented in this encounter Miscellaneous Notes Telephone [...] of plan and is agreeable. Blanca Brandt LOGY TEACHER Telephone Encounter - Blanca Brandt - 07/11/2011 10:18 AM CST Called and spoke with patient and informed of message from Dr. Laughlin below. Mailed back exercises.Patient is wanting to hold off on physical therapy at this time. Kristina Brandt RN LOGY TEACHER Telephone Encounter - Nathalia Galvan - 07/11/2011 9:50 AM CST Called and LM for pt with message below. Nathalia Galvan MA LOGY TEACHER Telephone Encounter - Lurdes Laughlin MD - 07/11/2011 9:08 AM VIROLOGY TEACHER Ibuprofen or naproxen are ok. Flexeril has potential interaction with azilect. I changed muscle relaxant to methocarbamol (robaxin) and sent to pharmacy. This also may make him sleepy. Please let patient know. Thanks, Lurdes Laughlin MD Internal Medicine/Pediatrics LOGY TEACHER Telephone Encounter - Blanca Brandt - 07/11/2011 8:32 AM CST Images from the original note were not included. Patient calls stating he was bending over to clean [employer] box yesterday morning and had back pain. He is leaving for [place] for work this afternoon. Wants to make [...] to correct posture; stop aggravating activities. ?? Bope-kqt-qdivnck pain medications for short term symptom control. [...] provider immediately. Medications for Pain Relief Recommended lglr-jle-mtogaxi non-steroidal anti-inflammatories: Ibuprofen (Advil, Motrin) 600 mg. [...] this several times a day. Developed by [employer] Published by [employer]. Last modified: 2008-06-29 Last reviewed: 2007-11-26 This content is reviewed periodically and is subject to change as new health information becomes available. The information is intended to inform and educate and is not a replacement for medical evaluation, advice, diagnosis or treatment by a healthcare professional. Adult Health Advisor 2009.1 Index Adult Health Advisor 2009.1 Credits ?? 2009 [facility] and/or its affiliates. All Rights Reserved. LOGY TEACHER documented in this encounter Plan of Treatment Not on filedocumented as of this encounter Visit Diagnoses Diagnosis Back muscle spasm - Primary Other symptoms referable to back documented in this encounter Care Teams Bung Sewer Relationship Specialty Start Date End Date Lurdes Thomas MD PCP - General Internal Medicine 04/12/10 04/03/13 documented as of this encounter
--- OUTSIDE RECORDS SUMMARY | 2022-01-26 11:57 | XMS_ITS | Encounter Summary ---
:1955 Author Organization [place] Address [address] [place] [address]. [place] [address] Care Team Providers Name Role Phone Lurdes Thomas MD Primary Care Provider [phone] Reason for Visit Reason Onset Date Comments Refill Request 04/11/2011 pravastatin Encounter Details Date Type Department Care Team Description 04/11/2011 Refill [facility] Eag Lurdes Rojas Refill Request 1440 [facility] MD [place] (pravastatin) [place] [address] [facility] [phone] [address] (Wo rk) Social History Tobacco Use [...] labs letter sent. Received refill request from [facility] for pravastatin. Last Office Visit R/T [...] comparison chart: [facility] CoA REDUCTASE INHIBITORS (STATINS) LITIES MANAGEMENT EXECUTIVE documented in this encounter Plan of Treatment Not on filedocumented as of this encounter Visit Diagnoses Diagnosis Hyperlipidemia LDL goal < 130 - Primary Other and unspecified hyperlipidemia documented in this encounter Care Teams Youth Manager Relationship Specialty Start Date End Date Lurdes Thomas MD PCP - General Internal Medicine 04/12/10 04/03/13 documented as of this encounter
--- OUTSIDE RECORDS SUMMARY | 2022-01-26 11:58 | XMS_ITS | Encounter Summary ---
:1955 Author [facility] Address [address] [place] [address] Care Team Providers Name Role Phone Samantha Stauffer MD Primary Care Provider Reason for Visit Reason Comments Medication Questions Encounter Details Date Type Department Care Team Description 12/30/2020 Telephone [facility] Walker Medicat ion Questions [facility] MD Prem Neurology 39[address] [facility] [address] [place] [address] [place], [place] [phone] (Wo rk) Social History Tobacco Use Types [...] parkinson's. Dr. Thompson can be reached at [phone]. Thank you documented in this encounter Plan of Treatment Not on filedocumented as of this encounter Visit Diagnoses Not on filedocumented in this encounter Care Teams Enamel Applier Relationship Specialty Start Date End Date Samantha Stauffer MD PCP - General Family Practice 12/12/191999 [place] [address] documented as of this encounter
--- OUTSIDE RECORDS SUMMARY | 2022-01-26 11:58 | XMS_ITS | Encounter Summary ---
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) At risk for falling Maria Esther Phan MD 3932 [place], [place] [address] Referral ID Status Reason Start Date Expiration Date Visits Requ ested Visits Authorized [id number] Closed 11/13/2020 11/13/2021 1 1 Encounter Details Date Type Department Care Team Description 12/04/2020 Therapy [facility] Carlos Cartwright, Prema n's disease (HRC) (Primary Dx); [facility] PT Impaired functional mobility, balance, g ait, and endurance Physical Therapy [address] [address] [phone] Social History Tobacco Use Types Packs/Day Years [...] discussion mentioned that they live close to [place] and it would be very difficult to attend physical therapy at this facility on a weekly to bi-weekly basis. After long discussion with patient and his , decision had been made for them to call [facility] and request a physical therapist that is certified in the [employer] program that could effectively treat patient with less stress on family (reducing driving). Did educate patient on different Parkinson's classes in the community, our [facility] PD programs and on [employer] program. Patient and his were satisfied [...] Name Type Priority Associated Diagnoses Order S [facility] Physical Therapy Referral Routine Parkinson's dis ease (HRC) Ordered: 11/13/2020 Dysphagia, unspe cified type Dyskinesia due to Parkinson' s disease (HRC) At risk for falling documented as of this encounter Visit Diagnoses Diagnosis Parkinson's disease (HRC) - Primary Impaired functional mobility, balance, g ait, and endurance documented in this encounter Care Teams Rail Transportation Operator Relationship Specialty Start Date End Date Samantha Stauffer MD PCP - General Family Practice 12/12/191999 [place] [address] documented as of this encounter
--- OUTSIDE RECORDS SUMMARY | 2022-01-26 11:58 | XMS_ITS | Encounter Summary ---
:1955 Author Organization [facility] Address [address] [place] [address] Care Team Providers Name Role Phone Samantha Stauffer MD Primary Care Provider [phone] Encounter Details Date Type Department Care Team Description 02/09/2021 Notes/Orders [facility] Neuroscience [facility] Speech Therap y [address] [place] [address] [id number] [place] [address] [phone] Social History Tobacco Use Types Packs/Day Years Used Date Smoking Tobacco: Never Smokeless Tobacco: Never Alcohol Use Standard Drinks/Week Comments Not Currently 0 (1 standard drink = 0.6 oz pure alcoho l) Sex Assigned at Date Recorded Not on file documented as of this encounter Progress Notes [facility] SLP - 02/09/2021 10:30 AM CDT SPEECH THERAPY DISCHARGE NOTE Andrew Pang [phone] Payor: [facility] / Plan: [employer] [employer] OUT OF STATE / Product Type: Commercial [...] on filedocumented in this encounter Care Teams Help Desk Assistant Relationship Specialty Start Date End Date Samantha Stauffer MD PCP - General Family Practice 12/12/191999 [place] [address] documented as of this encounter
--- OUTSIDE RECORDS SUMMARY | 2022-01-26 11:58 | XMS_ITS | Encounter Summary ---
:1955 Author Organization Formerly [facility] Address [address] [place] [address] Care Team Providers Name Role Phone Samantha Stauffer MD Primary Care Provider [phone] Reason for Visit Reason Comments RELEASE OF RECORDS Encounter Details Date Type Department Care Team Description 12/15/2020 Telephone [facility] Maria Esther Phan RELEASE OF RECORDS [facility] MD Prem Neurology [address] [phone] (Wo rk) Social History Tobacco Use Types [...] original note were not included. Records from [facility] received and sent to scanning. Kelly Encarnacion CMA 12/15/2020, 2:19 PM documented in this encounter Plan of Treatment Not on filedocumented as of this encounter Visit Diagnoses Not on filedocumented in this encounter Care Teams Stock Cutter Relationship Specialty Start Date End Date Samantha Stauffer MD PCP - General Family Practice 12/12/191999 [place] [address] documented as of this encounter
--- OUTSIDE RECORDS SUMMARY | 2022-01-26 11:58 | XMS_ITS | Clinical Summary ---
:1955 Author Organization [facility] Address [address] [place] [address] Care Team Providers Name Role Phone Samantha Stauffer MD Primary Care Provider [phone] Source Comments You are receiving this document [...] for each transition of care or referral. [facility] Allerg[facility] No known active allergies Medications Medication [...] this topic Medical Devices Implanted Type Area Head Concierge Device Shelf Model / Identifier Expiration Serial / Date Lot [employer] Pc - [id number] DEVICE Right: Medtronic - 2020 [id number] / Implanted: Qty: 1 on 12/12/2019 by Jorge L Kaiser MD at [facility] CHEST Neurological [id number] / NA Insurance Payer Benefit Plan / Subscriber ID Effective Dates Phone Addre ss Type Group MEDICARE MEDICARE PART [id number] 2018-Presfederica [phone] Medicare A t 27 BCBS BCBS OUT OF [id number] 2017-Ignacio [address] [address] Commercial [place] [id number] [address] (Home) [place] [address] Andrew Pang Personal/Famil Self 1955 [phone] 1905 [address]ICIL[address] y (Home) TRISH ABBASI [id number] 2 Andrew Pang Personal/Famil Self 1955 [address] (Home) [place] 550 19 Advance Directives Latest Code Status on File Code Status Date Activated Date Inactivated Comments Full Code 12/12/2019 8:30 AM 12/12/2019 9:48 PM Care Teams Employee Benefits Attorney Relationship Specialty Start Date End Date Samantha Stauffer MD PCP - General Family Practice 12/12/191999 [place] [address]
--- OUTSIDE RECORDS SUMMARY | 2022-01-26 11:58 | XMS_ITS | Encounter Summary ---
:1955 Author Organization [facility]ly [facility] Address [address] [place] [address] Care Team Providers Name Role Phone Samantha Stauffer MD Primary Care Provider [phone] Reason for Visit Reason Comments Prior Authorization Request Amantadine HCl ER (GOCOVRI ) 137 MG CP24 Encounter Details Date Type Department Care Team Description 10/14/2021 [facility] Prior A dchor[facility] MD Prem Request (Amantadine Neurology [address] HCl ER (GOCOVRI) [address] MG CP24) [place] [address] [place], [place] [phone] [phone] Social History Tobacco Use Types Packs/Day Years Used Date Smoking Tobacco: Never Smokeless Tobacco: Never Alcohol Use Standard Drinks/Week Comments Not Currently 0 (1 standard drink = 0.6 oz pure alcoho l) Sex Assigned at Date Recorded Not on file documented as of this encounter Nursing Notes Chloé Denny - 10/14/2021 2:35 PM CDT Approved Prior authorization approved Payer: [facility] CaseId:[id number];Status:Approved;Review Type:Prior Auth;Coverage Start Date:09/14/2021;Coverage End Date:10/14/2022; Approval Details Authorized from September 14, 2021 to October 14, 2022 Chloé Denny - 10/14/2021 1:09 PM CDT ePA requested through [facility]. Chloé Denny 10/14/2021, 1:09 PM Sylvia Burgess - 10/14/2021 9:10 AM CDT There is an approval through October 27 Recd fax from [employer], Please initiate new PA- Amantadine HCl ER (GOCOVRI) 137 MG CP24 Please see the providers right fax folder to review the fax for this TE. Sylvia Burgess 10/14/2021, 9:10 AM documented in this encounter Plan of Treatment Not on filedocumented as of this encounter Visit Diagnoses Not on filedocumented in this encounter Care Teams Lumber Buyer Relationship Specialty Start Date End Date Samantha Stauffer MD PCP - General Family Practice 12/12/191999 [place] [address] documented as of this encounter
--- OUTSIDE RECORDS SUMMARY | 2022-01-26 11:58 | XMS_ITS | Encounter Summary ---
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 Call [facility] Outpatient Rehabilitation at . We suggest you call your health insurance company about your coverage an d benefits for this appointment. Encounter Details Date Type Department Care Team Description 11/13/2020 Office Visit Maria Esther Mckeon on's disease (HRC) (Primary Dx); [facility] MD Prem Dysphagia, unspecified type; Neurology [address] [place] [address] Dyskinesia due to Parkinson' s disease (HRC); [address] [place] [address] [place], [place] [phone] [phone] Social History Tobacco Use Types Packs/Day Years [...] the endoscopy isplanned. If all those things last turner to be okay then I would [...] we will arrange for programming session at [place]. Next 6. Otherwise follow-up with me in [...] fall documented in this encounter Care Teams Escrow Officer Relationship Specialty Start Date End Date Samantha Stauffer MD PCP - General Family Practice 12/12/191999 [place] [address] documented as of this encounter
--- OUTSIDE RECORDS SUMMARY | 2022-01-26 11:58 | XMS_ITS | Encounter Summary ---
:1955 Author Organization [facility] Address [address], [place] [address] Care Team Providers Name Role Phone Samantha Stauffer MD Primary Care Provider [phone] Reason for Visit Reason Comments Medication Questions Encounter Details Date Type Department Care Team Description 06/11/2021 Telephone [facility] Doris Arauz field horticultural specialty grower Questions [address] [place] [phone] Social History Tobacco Use Types Packs/Day [...] left again. Chloé Denny 06/16/2021, 1:21 PM ION CONSULTANT SALES Chloé Denny - 06/14/2021 3:32 PM CST RN called pt to advise him to call [facility] Sanjeev Boyer back regarding his rx. No answer. Detailed voicemail left. Chloé Denny 06/14/2021, 3:33 PM ION CONSULTANT SALES Doris Arauz RN - 06/11/2021 1:55 PM CST NSC pt. [facility] called because they are in need of more information to contact the patient. They have attempted 5 times with not luck. They are requesting a call back at [phone] ION CONSULTANT SALES documented in this encounter Plan of Treatment Not on filedocumented as of this encounter Visit Diagnoses Not on filedocumented in this encounter Care Teams Substance Abuse Rn Relationship Specialty Start Date End Date Samantha Stauffer MD PCP - General Family Practice 12/12/191999 [place] [id number] documented as of this encounter
--- OUTSIDE RECORDS SUMMARY | 2022-01-26 11:58 | XMS_ITS | Encounter Summary ---
:1955 Author Organization [facility] Address [address], [place] [address] Care Team Providers Name Role Phone Samantha Stauffer MD Primary Care Provider [phone] Reason for Visit Reason Comments Refill Encounter Details Date Type Department Care Team Description 11/01/2020 Refill [facility] Neuroscience Maria Esther Reis MD Refill Center Neurology 3931 [facility] [address] [place] [address] [place] [address] [phone] Social History Tobacco Use Types Packs/Day Years [...] on filedocumented in this encounter Care Teams Lacquer Mixer Relationship Specialty Start Date End Date Samantha Stauffer MD PCP - General Family Practice 12/12/191999 [place] [address] documented as of this encounter
--- OUTSIDE RECORDS SUMMARY | 2022-01-26 11:58 | XMS_ITS | Encounter Summary ---
:1955 Author Organization Count includes the [facility] Address [address] [place] [address] Care Team Providers Name Role Phone Samantha Stauffer MD Primary Care Provider [phone] Encounter Details Date Type Department Care Team Description 07/14/2021 Telephone [facility] Princess Phan, Center Neurology [address] [place] [address] [place] [address] [phone] (Wo rk) Social History Tobacco Use Types [...] verbalizes understanding. Chloé Denny 07/16/2021, 5:09 PM OMER EXPERIENCE INTERN Doris Slaugther RN - 07/16/2021 4:43 PM CST RN looked at RX, PA approval through 10/2021. Doris Slaughter RN 07/16/2021, 4:44 PM OMER EXPERIENCE INTERN Karin Dill - 07/16/2021 4:39 PM CST Pt calling stating they need a PA for this rx, please advise, thanks! Karin Dill 07/16/2021, 4:40 PM OMER EXPERIENCE INTERN Chloé Denny - 07/16/2021 2:05 PM CST Prescription form not necessary. RN spoke with pharmacy this morning and gave verbal. Sheldon Merlos - 07/16/2021 1:06 PM CST Images from the original note were not included. Recd universal prescription/ pharmacy intake form from [facility] Placed in providers right fax Sheldon Mays 07/16/2021, 1:07 PM OMER EXPERIENCE INTERN Chloé Denny - 07/16/2021 9:31 AM CST RN called [facility] (ph. [phone]) to give additional information per pt request [...] please call Cristhian Dueñas 07/14/2021, 12:13 PM OMER EXPERIENCE INTERN documented in this encounter Plan of Treatment Not on filedocumented as of this encounter Visit Diagnoses Not on filedocumented in this encounter Care Teams Ruling Machine Operator Relationship Specialty Start Date End Date Samantha Stauffer MD PCP - General Family Practice 12/12/191999 [place] [address] documented as of this encounter
--- OUTSIDE RECORDS SUMMARY | 2022-01-26 11:58 | XMS_ITS | Encounter Summary ---
:1955 Author Organization [facility] Address [address], [place] [address] Care Team Providers Name Role Phone Samantha Stauffer MD Primary Care Provider [phone] Reason for Visit Reason Comments Refill Encounter Details Date Type Department Care Team Description 05/24/2020 Refill [facility] Neuroscience Maria Esther Reis MD Refill Center Neurology [address] [facility] 295 [facility] [place] [address] [place] [address] [phone] Social History Tobacco Use Types Packs/Day Years [...] filedocumented in this encounter Care Teams Rn Oncology Research Relationship Specialty Start Date End Date Samantha Stauffer MD PCP - General Family Practice 12/12/191999 [place] [address] documented as of this encounter
--- OUTSIDE RECORDS SUMMARY | 2022-01-26 11:58 | XMS_ITS | Encounter Summary ---
:1955 Author Organization [facility] Address [address] [place] [address] Care Team Providers Name Role Phone Samantha Stauffer MD Primary Care Provider [phone] Reason for Referral Therapies (Routine) - Closed Specialty Diagnoses / Procedures Referred By Contact Refer red To Contact Diagnoses Parkinson's disease (HRC) Dysphagia, unspecified type Maria Esther Phan MD [address] [place], [place] [address] Referral ID Status Reason Start Date Expiration Date Visits Requ ested Visits Authorized [id number] Closed 10/28/2020 10/28/[phone] Scheduling Instructions Your provider has recommended an appoint ment with a [facility] Speech Therapist. Please call for your appointment you may call [facility] Outpatient Rehabilitation at [phone]. We suggest you call your [facility] insurance company about your coverage and benefits for this appointment. Reason for Visit Reason Comments Pain Stomach and trouble swallowi ng Encounter Details Date Type Department Care Team Description 10/28/2020 [facility] MD Prem trouble swallowing) Neurology [facility] [address] [address] [place], [place] [phone] (Wo rk) Social History Tobacco Use Types [...] call and schedule the swallow study (ph. [phone]) Spouse reports that pt went to see a provider at [facility] last (10/29) and was prescribed generic Prilosec. This has been helpful thus far. They also saw pt's PCP this morning (11/04) who is recommending a GI consult. Dr. Phan: Do you have a preferred dean of students you would recommend to someone who has [...] (HRC) documented in this encounter Care Teams Anchorer Relationship Specialty Start Date End Date Samantha Stauffer MD PCP - General Family Practice 12/12/191999 [place] [id number] documented as of this encounter
--- OUTSIDE RECORDS SUMMARY | 2022-01-26 11:58 | XMS_ITS | Encounter Summary ---
:1955 Author Organization [facility] Address [address] [place] [address] Care Team Providers Name Role Phone Samantha Stauffer MD Primary Care Provider [phone] Reason for Referral Procedure/Equipment (Routine) - Incomplete Specialty Diagnoses / Procedures Referred By Contact Refer red To Contact Diagnoses Parkinson's disease (HRC) Dysphagia, unspecified type ParashosMaria Esther MD Procedures FL Video Swallow Study 39[address] [place], [place] [address] Referral ID Status Reason Start Date Expiration Date Visits V isits Requested Authorized [id number] Incomplete 11/04/2020 02/03/2022 1 1 Therapies (Routine) - Closed Specialty Diagnoses / Procedures Referred By Contact Refer red To Contact Diagnoses Parkinson's disease (HRC) Dysphagia, unspecified type ParashoMaria Esther jacques MD [address] [place], [place] [address] Referral ID Status Reason Start Date Expiration Date Visits Requ ested Visits Authorized [id number] Closed 11/04/2020 11/04/2021 1 1 Scheduling Instructions Your provider has recommended an appoint ment with a [facility] Speech Therapist. Please call for your appointment you may call [facility] Out[facility] Rehabilitation at [phone]. We suggest you call your [facility] insurance company about your coverage and benefits for this appointment. Reason for Visit Reason Comments Orders Needed FL VIDEO SWALLOW STUDY Encounter Details Date Type Department Care Team Description 11/04/2020 Telephone [facility] Maria Esther Phan Orders Needed ([place] [facility] MD Jorden VIDEO SWALLOW STUDY ) Neurology 39[address] [facility] [address] [place] [address] [place], [place] [phone] (Wo rk) Social History Tobacco Use Types [...] had done Jun). RN can see the CAD DRAFTSMAN order that requests video swallow study (with radiology and speech, but they need the actual order along with the CAD DRAFTSMAN order. The order is pended. Dr. Phan [...] CDT EXAM: [place] VIDEO SWALLOW STUDY LOCATION: [facility] DATE/TIME: 11/19/2020 11:56 AM INDICATION: Difficulty swallowing. [...] original. EXAM: [place] VIDEO SWALLOW STUDY LOCATION: [facility] DATE/TIME: 11/19/2020 11:56 AM INDICATION: Difficulty swallowing. [...] type documented in this encounter Care Teams Provider Relations Consultant Relationship Specialty Start Date End Date Samantha Stauffer MD PCP - General Family Practice 12/12/191999 [place] [address] documented as of this encounter
--- OUTSIDE RECORDS SUMMARY | 2022-01-26 11:58 | XMS_ITS | Encounter Summary ---
:1955 Author Organization [facility] Address [address], [place] [address] Care Team Providers Name Role Phone Samantha Stauffer MD Primary Care Provider [phone] Reason for Visit Procedure/Equipment (Routine) - Incomplete Specialty Diagnoses / Procedures Referred By Contact Refer red To Contact Diagnoses Parkinson's disease ([facility]) Dysphagia, unspecified type Sylvester, Maria Esther Amaro MD Procedures FL Video Swallow Study [address] [place], [place] [address] Referral ID Status Reason Start Date Expiration Date Visits V isits Requested Authorized [id number] Incomplete 11/04/2020 02/03/2022 1 1 Encounter Details Date Type Department Care Team Description 11/19/2020 Ancillary [facility] Parashos, Pre-procedura l laboratory examination (Primary Dx); Procedure [facility] Maria Esther Amaro MD Parkinson's disease ([facility]); Radiology Fluoro [address] [place] Dysphagia, unspecified type [address] [place] [address] [place], [place] [phone] Social History Tobacco Use Types Packs/Day Years [...] CDT EXAM: [place] VIDEO SWALLOW STUDY LOCATION: [facility] DATE/TIME: 11/19/2020 11:56 AM INDICATION: Difficulty [...] original. EXAM: [place] VIDEO SWALLOW STUDY LOCATION: [facility] DATE/TIME: 11/19/2020 11:56 AM INDICATION: Difficulty [...] dose documented in this encounter Care Teams Manufacturing Engineering Director Relationship Specialty Start Date End Date Samantha Stuaffer MD PCP - General Family Practice 12/12/191999 [place] [address] documented as of this encounter
--- OUTSIDE RECORDS SUMMARY | 2022-01-26 11:58 | XMS_ITS | Encounter Summary ---
:1955 Author Organization [facility] Address [address] [place] [address] Care Team Providers Name Role Phone Smaantha Stauffer MD Primary Care Provider [phone] Reason for Visit Reason Comments Prior Authorization Request Amantadine HCl ER (GOCOVRI ) 137 MG CP24 Encounter Details Date Type Department Care Team Description 10/27/2020 [facility] A [facility] MD Prem Request (Amantadine Neurology [address] HCl ER (GOCOVRI) [address] MG CP24) [place] [address] [place], [place] [phone] Social History Tobacco Use Types Packs/Day Years Used Date Smoking Tobacco: Never Smokeless Tobacco: Never Alcohol Use Standard Drinks/Week Comments Yes 0 (1 standard drink = 0.6 oz pure alcoho l) Sex Assigned at Date Recorded Not on file documented as of this encounter Nursing Notes Chloé Denny - 11/06/2020 8:37 AM CDT Prior authorization approved -Nida Payer: [facility] CaseId:[id number];Status:Approved;Review Type:Prior Auth;Coverage Start Date:09/27/2020;Coverage End Date:10/27/2021; RN [...] filedocumented in this encounter Care Teams House Painter Helper Relationship Specialty Start Date End Date Samantha Stauffer MD PCP - General Family Practice 12/12/191999 [place] [address] documented as of this encounter
--- OUTSIDE RECORDS SUMMARY | 2022-01-26 11:58 | XMS_ITS | Encounter Summary ---
:1955 Author Organization [facility] Address [address] [place] [address] Care Team Providers Name Role Phone Samantha Stauffer MD Primary Care Provider [phone] Encounter Details Date Type Department Care Team Description 08/27/2021 Office Visit Maria Esther Mckeon on's disease (HRC) (Primary Dx); [facility] MD Prem Dyskinesia due to Parkinson's disease ([facility]) Neurology [address] [place] [address] [place], [place] [phone] Social History Tobacco Use Types Packs/Day Years [...] coordination documented in this encounter Care Teams Book Agent Relationship Specialty Start Date End Date Samantha Stauffer MD PCP - General Family Practice 12/12/191999 [place] [address] documented as of this encounter
--- OUTSIDE RECORDS SUMMARY | 2022-01-26 11:58 | XMS_ITS | Encounter Summary ---
:1955 Author [facility] Address [address], [place] [address] Care Team Providers Name Role Phone Samantha Stauffer MD Primary Care Provider [phone] Reason for Visit Reason Comments QUESTIONS, GENERAL Encounter Details Date Type Department Care Team Description 07/24/2020 Telephone [facility] Brower, GENERAL [facility] MD Prem Neurology [address] [facility] 295 [place] [phone] (Wo rk) Social History Tobacco Use Types [...] [place] [facility] Jeannette Porras RN Maximo Sadler - 07/24/2020 9:50 AM CST Patient is requesting a call back regarding questions he has about covid vaccine and also about DBS battery. Please call back when available, Thank you. Maximo Julio 07/24/2020, 9:52 AM F ELECTRONIC WARFARE OFFICER documented in this encounter Plan of Treatment Not on filedocumented as of this encounter Visit Diagnoses Not on filedocumented in this encounter Care Teams Pharmaceutical Salesperson Relationship Specialty Start Date End Date Samantha Stauffer MD PCP - General Family Practice 12/12/191999 [place] [address] documented as of this encounter
--- OUTSIDE RECORDS SUMMARY | 2022-01-26 11:58 | XMS_ITS | Encounter Summary ---
:1955 Author Organization [facility] Address [address], [place] [address] Care Team Providers Name Role Phone Samantha Stauffer MD Primary Care Provider [phone] Encounter Details Date Type Department Care Team Description 12/21/2020 [facility] Princess Phan, [place] Neurology [address] [place] [address] [place] [address] [phone] (Wo rk) Social History Tobacco Use Types [...] info edited w/ current number : ph. [phone]) Natasha reports that since decreasing RYTARY to [...] addressed first. Pt has an appt with [facility] [place] tomorrow (12/25) as well as a f/u [...] disconnected. Number is disconnected. RN sent a [employer] message encouraging them to give us a call. Chloé Denny 12/22/2020, 4:19 PM Chloé Denny - 12/21/2020 3:55 PM CDT RN attempted to call Natasha back 2 x @ . [phone] and line was disconnected (message states destination not assigned). Then called . [phone], no answer. [facility] Chloé Denny 12/21/2020, 3:57 PM [...] on filedocumented in this encounter Care Teams Cinder Crane Operator Relationship Specialty Start Date End Date Samantha Stauffer MD PCP - General Family Practice 12/12/191999 [place] [address] documented as of this encounter
--- OUTSIDE RECORDS SUMMARY | 2022-01-26 11:58 | XMS_ITS | Encounter Summary ---
:1955 Author Organization [facility] Address [address], [place] [address] Care Team Providers Name Role Phone Samantha Stauffer MD Primary Care Provider [phone] Reason for Visit Reason Comments Refill Encounter Details Date Type Department Care Team Description 05/18/2021 Refill [facility] Neuroscience Maria Esther Reis MD Refill Center Neurology 39[address] [facility] [address] [place] [address] [place] [address] [phone] Social History Tobacco Use Types Packs/Day Years [...] on filedocumented in this encounter Care Teams Hardwood Floor Finisher Relationship Specialty Start Date End Date Samantha Stauffer MD PCP - General Family Practice 12/12/191999 [place] [address] documented as of this encounter
--- OUTSIDE RECORDS SUMMARY | 2022-01-26 11:58 | XMS_ITS | Encounter Summary ---
:1955 Author Organization [facility] Address [address], [place] [address] Care Team Providers Name Role Phone Samantha Stauffer MD Primary Care Provider [phone] Reason for Referral Medication Prior Authorization (Routine) - Authorized Specialty Diagnoses / Procedures Referred By Contact Refer red To Contact Maria Esther Phan MD [address] [place], [place] [address] Referral ID Status Reason Start Date Expiration Date Visits V isits Requested Authorized [id number] Authorized 1 1 NKEEPER Reason for Visit Reason Onset Date Comments Refill 07/15/2020 Amantadine HCl ER (G OCOVRI) 137 MG CP24 Encounter Details Date Type Department Care Team Description 07/15/2020 [facility] (Amantadine HCl [facility] MD Prem ER (GOCOVRI) 137 MG Neurology 3931 [facility] CP24) [address] [place] [address] [phone] (Wo rk) Social History Tobacco Use Types [...] at bedtime. Sheldon Mays 07/15/2020, 8:49 AM NKEEPER documented in this encounter Plan of Treatment Not on filedocumented as of this encounter Visit Diagnoses Not on filedocumented in this encounter Care Teams Building Performance Specialist Relationship Specialty Start Date End Date Samantha Stauffer MD PCP - General Family Practice 12/12/191999 [place] [address] documented as of this encounter
--- OUTSIDE RECORDS SUMMARY | 2022-01-26 11:58 | XMS_ITS | Encounter Summary ---
:1955 Author Organization [facility] Address [address] [place] [address] Care Team Providers Name Role Phone Samantha Stauffer MD Primary Care Provider [phone] Reason for Visit Reason Comments QUESTIONS, GENERAL Battery Encounter Details Date Type Department Care Team Description 12/07/2020 Telephone HealthMaria Esther Brower, GENERAL Neuroscience [facility] MD Prem (Battery ) Neurology 3931 [facility] [address] [place] [place] [address] [place], [place] [phone] (Wo rk) Social History Tobacco Use Types Packs/Day Years Used Date Smoking Tobacco: Never Smokeless Tobacco: Never Alcohol Use Standard Drinks/Week Comments Not Currently 0 (1 standard drink = 0.6 oz pure alcoho l) Sex Assigned at Date Recorded Not on file documented as of this encounter Nursing Notes Chloé Denny - 12/09/2020 3:53 PM CDT RN called pt's spouse back (ph. [phone]) to relay Dr. Phan' recommendations. Verbalizes understanding and they will adjust pt's RYTARY to tid first. RN also sent recommendations via [employer] message. Encouraged to call back with any [...] on filedocumented in this encounter Care Teams Entertainment Lawyer Relationship Specialty Start Date End Date Samantha Stauffer MD PCP - General Family Practice 12/12/191999 [place] [address] documented as of this encounter
--- OUTSIDE RECORDS SUMMARY | 2022-01-26 11:58 | XMS_ITS | Encounter Summary ---
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 Reason for Visit Therapies (Routine) - Closed Specialty Diagnoses / Procedures Referred By Contact Refer red To Contact Diagnoses Parkinson's disease (HRC) Dysphagia, unspecified type Maria Esther Phan MD [address] [place] [address] Referral ID Status Reason Start Date Expiration Date Visits Requ ested Visits Authorized [id number] Closed 10/28/2020 10/28/2021 999 999 Encounter Details Date Type Department Care Team Description 11/19/2020 Office Visit Mesfin Fong, Dysphagia, o ropharyngeal phase (Primary Dx); Neuroscience Center PRIVATE MORTGAGE BANKER SAFE Parkinson's disease (HRC); Speech Therapy [address] [place] [address] Hypokinetic Parkinsonian dysphonia (HRC) [address] [place] [id number] [address] [place] [address] [phone] Social History Tobacco Use Types Packs/Day Years [...] to you soon. JB Samuels [facility] Licensed Speech Language Pathologist -- Outpatient appointments [...] set to have EGD done tomorrow in [place], [place]. Hopefully this will lead to a [...] a regular diet with thin liquids [employer]PENRITH Insurance Info: Today's Visit Number: 1 Progress [...] to IDDSI liquid framework: Davina Alegria, Mapping [employer]'s Varibar Barium Products to the IDDSI Framework. IDDSI website. ht tps://iddsi.org/IDDSI/media/images/Publications/Afhljwi-Qedeomy-ag-IDDSI-Framewo rk.pdf. October 2016. Varibar Thin 40% IDDSI Level 0-Thin Varibar Edcouch 40% IDDSI Level 2-Mildly Thick Varibar Thin [...] Dysphonia documented in this encounter Care Teams Blacksmith Helper Relationship Specialty Start Date End Date Samantha Stauffer MD PCP - General Family Practice 12/12/191999 [place] [address] documented as of this encounter
--- OUTSIDE RECORDS SUMMARY | 2022-01-26 11:58 | XMS_ITS | Encounter Summary ---
:1955 Author Organization [facility] Address [address] [place] [address] Care Team Providers Name Role Phone Samantha Stauffer MD Primary Care Provider [phone] Reason for Visit Reason Comments Post-Op Check Encounter Details Date Type Department Care Team Description 01/24/2020 Telemedicine Specialty Center 3931 Divina Kaiser MD Parkinson's disease Neurosurgery 3931 [facility] (Primary Dx) [facility] [address] [phone] Social History Tobacco Use Types Packs/Day Years [...] Primary documented in this encounter Care Teams Doggy Daycare Activities Director Relationship Specialty Start Date End Date Samantha Stauffer MD PCP - General Family Practice 12/12/191999 [place] [address] documented as of this encounter
--- OUTSIDE RECORDS SUMMARY | 2022-01-26 11:59 | XMS_ITS | Encounter Summary ---
:1955 Author Organization [facility] Address [address], [place] [address] Care Team Providers Name Role Phone Lurdes Thomas MD Primary Care Provider Reason for Visit Reason Comments Prior Authorization Request update needed - Gocovri Encounter Details Date Type Department Care Team Description 10/10/2019 Telephone [facility] MD Prem Request (update needed Neurology 3931 [facility]) [address] [facility] [place] [address] [place], [place] [phone] Social History Tobacco Use Types Packs/Day Years [...] AM CDT Spouse calling for pt - [facility] checking on status for PA for Gocovri. Pt needs this medication by Monday. Please call pt back and advise. THanks Jeannette Dee 10/10/2019, 10:53 AM documented in this encounter Plan of Treatment Not on filedocumented as of this encounter Visit Diagnoses Not on filedocumented in this encounter Care Teams Compensation Coordinator Relationship Specialty Start Date End Date Lurdes Thomas MD PCP - General 06/18/14 12/11/19 documented as of this encounter
--- OUTSIDE RECORDS SUMMARY | 2022-01-26 11:59 | XMS_ITS | Encounter Summary ---
:1955 Author Organization [facility] Address [address], [place] [address] Care Team Providers Name Role Phone Lurdes Thomas MD Primary Care Provider Reason for Referral Consult/Transfer Care (Routine) - Closed Specialty Diagnoses / Procedures Referred By Contact Refer red To Contact Neurosurgery Diagnoses Parkinson's disease (HRC) Maria Esther Phan MD McIver, Jon I, MD [address] [facility] [address] [place], [place] [address] [place] [address] Fax: Referral ID Status Reason Start Date Expiration Date Visits Requ ested Visits Authorized [id number] Closed 11/13/2019 02/11/2021 1 1 Scheduling Instructions Your provider [facility]. You may call [phone], option [phone] to schedule your appointment. We suggest you call your health insurance breanna about your coverage and benefits for this appointment. Reason for Visit Reason Comments FYI DBS battery Encounter Details Date Type Department Care Team Description 11/13/2019 Telephone Maria Esther Mckeon (DB S battery) Neuroscience Center MD Prem Neurology 3931 [facility] [address] [place] [address] [phone] (Wo rk) Social History Tobacco Use Types [...] him if he mixed systems (I.egot a [employer] Sci battery, with Medtronic lead) this is [...] to call and schedule the battery replacement. [place] nursing, can you facilitate with Dr. Kaiser's [...] Primary documented in this encounter Care Teams Automotive Salesperson Relationship Specialty Start Date End Date Lurdes Thomas MD PCP - General 06/18/14 12/11/19 documented as of this encounter
--- OUTSIDE RECORDS SUMMARY | 2022-01-26 11:59 | XMS_ITS | Encounter Summary ---
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 [address] [place], [place] [phone] Social History Tobacco Use Types Packs/Day Years Used Date Smoking Tobacco: Never Smokeless Tobacco: Never Alcohol Use Standard Drinks/Week Comments Yes 0 (1 standard drink = 0.6 oz pure alcoho l) Sex Assigned at Date Recorded Not on file documented as of this encounter Last Filed Vital Signs Vital Sign Reading Time Taken Comments Blood Pressure 118/73 05/04/2018 3:45 PM TOY ASSEMBLER Pulse 85 05/04/2018 3:45 PM TOY ASSEMBLER Temperature - - Respiratory Rate - - Oxygen Saturation - - Inhaled Oxygen Concentration - - Weight 80.1 kg (176 lb 9.6 oz) 05/04/2018 3:45 PM TOY ASSEMBLER Height 185.4 cm (6' 1) 05/04/2018 3:45 PM TOY ASSEMBLER Body Mass Index 23.3 05/04/2018 3:45 PM TOY ASSEMBLER documented in this encounter Patient Instructions Patient InstructionsRichard Phan MD - 05/04/2018 3:45 PM CST A good site to look for clinical trials in Parkinson's is clinicaltrials.gov ASSEMBLER documented in this encounter Progress Notes Richard Phan MD - 05/04/2018 12:00 AM CST DEIDRE PANG CSN: [id number] CLINIC NOTE NEUROLOGY PROGRESS NOTE DATE OF SERVICE: 05/04/2018 : 1955 CHIEF COMPLAINT: Followup Parkinson's. HISTORY OF PRESENT ILLNESS: Mr. Pang was seen in the company of his in followup of his Parkinson's. Last time I saw him was in July at [place]. He has done reasonably well since then. [...] without abnormal responses. There are no tremors. Cdqihh-tyha-umkayo and yhdg-bigy-hjvb are accurate. There is minimal if any [...] visit: 15 minutes. 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
--- OUTSIDE RECORDS SUMMARY | 2022-01-26 11:59 | XMS_ITS | Encounter Summary ---
:1955 Author Organization [facility] Address [address], [place] [address] Care Team Providers Name Role Phone Lurdes Thomas MD Primary Care Provider Reason for Visit Reason Comments Refill Encounter Details Date Type Department Care Team Description 08/21/2019 Refill [facility] Neuroscience Maria Esther Reis MD Refill Center Neurology [address] [facility] [address] [place] [address] [place] [address] [phone] Social History Tobacco Use Types Packs/Day Years [...] on filedocumented in this encounter Care Teams Vocational Aide Relationship Specialty Start Date End Date Lurdes Thomas MD PCP - General 06/18/14 12/11/19 documented as of this encounter
--- OUTSIDE RECORDS SUMMARY | 2022-01-26 11:59 | XMS_ITS | Encounter Summary ---
:1955 Author Organization [facility] Address [address] [place] [address] Care Team Providers Name Role Phone Lurdes Thomas MD Primary Care Provider Reason for Referral Consult/Transfer Care (Routine) - Closed Specialty Diagnoses / Procedures Referred By Contact Refer red To Contact Diagnoses Parkinson's disease (HRC) Richard Phan MD [address] [place], [place] [address] Referral ID Status Reason Start Date Expiration Date Visits Requ ested Visits Authorized [id number] Closed 09/12/2019 12/11/2020 1 1 Scheduling Instructions Your provider has recommended an appoint ment with Jasmine Ramirez. You may call [phone] to schedule your appoi ntment. If you do not schedule an appointment within the next 1 to 3 business days, we will call you to help arrange your appointment. We suggest you call your [facility] insurance company about your coverage and benefits for this appointment. Reason for Visit Reason Comments QUESTIONS, GENERAL UPDATE Encounter Details Date Type Department Care Team Description 09/02/2019 [facility] Neuroscience [facility] MD Prem UPDATE Neurology [address] [place] [address] [place], [place] [phone] (Wo rk) Social History Tobacco Use Types [...] documented in this encounter Nursing Notes Matt Ctaes RN - 09/12/2019 1:59 PM CDT Relayed [...] Cates RN - 09/12/2019 11:36 AM CDT [facility] Matt Cates RN 09/12/2019, 11:37 AM Yenny [...] that we are restarting battery changes at [facility] with Dr. Kaiser, so if they wish [...] will be limited to drop off and spanish moss picker on the day of surgery. A [...] Primary documented in this encounter Care Teams Red Hat Linux Engineer Relationship Specialty Start Date End Date Lurdes Thomas MD PCP - General 06/18/14 12/11/19 documented as of this encounter
--- OUTSIDE RECORDS SUMMARY | 2022-01-26 11:59 | XMS_ITS | Encounter Summary ---
:1955 Author Organization [facility] Address [address] [place] [address] Care Team Providers Name Role Phone Samantha Stauffer MD Primary Care Provider [phone] Encounter Details Date Type Department Care Team Description 11/20/2019 Prep for Surgery Specialty Center 3931 Clementine Kaiser MD Neurosurgery [address] [address] [phone] Social History Tobacco Use Types Packs/Day Years [...] on filedocumented in this encounter Care Teams Etymology Teacher Relationship Specialty Start Date End Date Samantha Stauffer MD PCP - General Family Practice 12/12/191999 [place] [address] documented as of this encounter
--- OUTSIDE RECORDS SUMMARY | 2022-01-26 11:59 | XMS_ITS | Encounter Summary ---
:1955 Author Organization [facility] Address [address] [place] [address] Care Team Providers Name Role Phone Lurdes Thomas MD Primary Care Provider Reason for Visit Reason Onset Date Comments Refill 06/03/2019 Encounter Details Date Type Department Care Team Description 06/03/2019 Refill [facility] Neuroscience Para Maria Esther newberry MD Refill Center Neurology [address] [address] [place] [address] [phone] Social History Tobacco Use Types Packs/Day Years [...] Qty: 90 tabs Last Refill: not given Filling Station Attendant/Appt Center: Was the pharmacy entered into the Preferred Pharmacy field? Yes Abi Laughlin 06/03/2019, 1:58 PM ZINE WRITER documented in this encounter Plan of Treatment Not on filedocumented as of this encounter Visit Diagnoses Not on filedocumented in this encounter Care Teams Ssrs Developer Relationship Specialty Start Date End Date Lurdes Thomas MD PCP - General 06/18/14 12/11/19 documented as of this encounter
--- OUTSIDE RECORDS SUMMARY | 2022-01-26 11:59 | XMS_ITS | Encounter Summary ---
:1955 Author Organization [facility] Address [address] [place] [address] [place] [address] Care Team Providers Name Role Phone Samantha Stauffer MD Primary Care Provider [phone] Reason for Visit Auth/Cert Specialty Diagnoses / Procedures Referred By Contact Refer red To Contact Diagnoses Parkinson's disease (HRC) Procedures RIGHT DEEP BRAIN STIMULATOR GENERATOR REPLACEMENT Referral ID Status Reason Start Date Expiration Date Visits Requ ested Visits Authorized [id number] 1 1 Encounter Details Date Type Department Care Team Description 12/12/2019 Surgery [facility] Operating Jorge L Kaiser MD RIGHT DEEP BRAIN Room 3931 [facility] STIMULATOR GENERATOR [address] [place], [place] [address] [phone] Social History Tobacco Use Types Packs/Day Years [...] upper arm muscles. This includes pushing a temple meat cutter or vacuum and mopping floors. It also [...] can you learn more? 1. Go to [email or web address] or B[employer]/Codon DevicesraGlucoSentient. 2. Enter D150 in the search box. Current as of: April 09, 2019?Content Version: 12.4 ?? [employer]. Care instructions adapted under license by your healthcare professional. If you have questions abouta medical condition or this instruction, always ask your healthcare professional. [employer] disclaims any warranty or liability for your [...] on Keflex including possible side effects. Prescriptions [facility] [place]. Belongings checklist reviewed with patient and belongings [...] Kaiser MD - 12/12/2019 8:17 AM CDT [facility] Operative Note Surgery Date: 12/12/2019 Primary Surgeon: [...] 8-10 minutes) Implants: Activa PC Model number [id number] Serial No: [id number] Post-op Diagnosis: Parkinson's Disease, Right Infraclavicular IPG [...] Rapid (COVID-19) (12/12/2019 6:06 AM CDT) [facility] Method Time Signature COVID-19 Not Not 12/12/2019 [facility] Interpretation Detected Detected 7:04 AM CDT LABORATORY Specimen Anatomical Collection Method Collection Time Receive d Time (Source) Location / / Volume Laterality Swab (Source Non-blood 12/12/2019 6:06 AM 0 6:09 Required) Collection / CDT AM CDT Unknown Narrative [facility] - 12/12/2019 7:04 A M CDT Test performed by real-time PCR. This test has been authorized by the FDA under an Emergency Use Authorization (EUA) for use by authorized laboratories. Jorge L Kaiser MD LAB_1 Performing Organization Address City/State/ZIP Code Phon e Number [facility] [address] [place] [address] documented in this encounter Visit Diagnoses Diagnosis Parkinson's disease (HRC) - Primary Parkinson's disease (HRC) documented in this encounter Admitting Diagnoses Diagnosis Parkinson's disease (HRC) documented in this encounter Administered Medications Inactive Administered Medications - up to 3 most recent administrations Medication Order MAR Action Action Date Dose Rate Site bupivacaine-epinephrine PF Given 12/12/2019 7:58 AM CDT 20 mL (SENSORCAINE) 0.25% -[id number] injection ONCE PRN, Starting on Stacey 12/12/19 [...] (COMPLETED) 0735 (Given - Provider: Luis Anaya, FREIGHT BRAKE OPERATOR, HOTEL ENGINEER) 2 g, Intravenous, Administer over 30 [...] (Anesthesia Fluid - Provider: Luis Anaya APRN, HOTEL ENGINEER) 25 mL/hr, Intravenous, at 25 mL/hr, CONT INUOUS, Starting Stacey 12/12/19 at 0615, Administer on all preop surgery patients, ages 12 and older, unless specified differently in the Protocol for Preop Initiation of IV fluids Order Set., Pre-op NaCl 0.9%-KCl 20 mEq/liter infusion 0900 (Due) Intravenous, at 75 mL/hr, CONTINUOUS, Starting [facility] 12/12/19 at 09 00, Post-op PRN Medication Order 12/10/2019 12/11/2019 12/12/2019 acetaminophen (TYLENOL) tablet 650 mg 650 mg, Oral, Q4H PRN, Other, Mild Pain (pain score 1-4), Starting [facility] 12/12/19 at 0830, Every 4 hours [...] is ineffective., Post-op bupivacaine-epinephrine PF (SENSORCAINE) 0.25% -1:[id number] injecti on 0758 (Given - Provider: Jorge L Kaiser MD) ONCE PRN, Starting [facility] 12/12/19 at 0758, Intra-op gentamicin 80 mg-clindamycin 900 mg in s odium chloride 1000 mL (DABS) irrigation solution 0802 (Given - Provid er: Jorge L Kaiser MD) ONCE PRN, Starting [facility] 12/12/19 at 0802, Intra-op HYDROcodone-acetaminophen (NORCO) [...] time as ORAL opioids. HOLD if on DATA MANAGEMENT SPECIALIST., Post-op lidocaine (UROJET) 2 % prefilled syringe [...] time as IV opioids. HOLD if on DATA MANAGEMENT SPECIALIST., Post-op senna (SENOKOT) tablet 1-2 Tablet 1-2 Tablet, Oral, BID PRN, Other, Modera te Constipation, Starting Stacey 12/12/19 at 0830, Hold for loose stools, Post-op documented in this encounter Care Teams Dairy Inspector Relationship Specialty Start Date End Date Samantha Stauffer MD PCP - General Family Practice 12/12/191999 [place] [address] documented as of this encounter
--- OUTSIDE RECORDS SUMMARY | 2022-01-26 11:59 | XMS_ITS | Encounter Summary ---
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 [address] [place], [place] [phone] [id number] Social History Tobacco Use Types Packs/Day Years [...] without abnormal responses. There are no tremors. Lroxmn-efje-ffclhd and fjec-kfqc-wwkg are accurate. There is minimal if any [...] unspecified documented in this encounter Care Teams Supervisor Concrete Block Plant Relationship Specialty Start Date End Date Lurdes Thomas MD PCP - General 06/18/14 12/11/19 documented as of this encounter
--- OUTSIDE RECORDS SUMMARY | 2022-01-26 11:59 | XMS_ITS | Encounter Summary ---
:1955 Author Organization [facility] Address [address], [place] [address] Care Team Providers Name Role Phone Lurdes Thomas MD Primary Care Provider Reason for Referral (Routine) - Incomplete Specialty Diagnoses / Procedures Referred By Contact Refer red To Contact Diagnoses Parkinson's disease (HRC) Jorge L Kaiser MD Procedures Case Request OR - Neurosurgery: RIGHT DEEP BRAIN STIMULATOR GENERATOR REPLACEMENT [address] [place] [address] Referral ID Status Reason Start Date Expiration Date Visits V isits Requested Authorized [id number] Incomplete 09/18/2019 12/17/2020 1 1 Encounter Details Date Type Department Care Team Description 09/18/2019 Prep for Surgery Specialty Center Jorge L Kaiser MD Parkinson's disease 3931 Neurosurgery 3931 [facility] (Primary Dx) 3931 [place] [address] [place] [address] [phone] Social History Tobacco Use Types Packs/Day Years [...] Primary documented in this encounter Care Teams Mint Wafer Depositor Relationship Specialty Start Date End Date Serum, Lurdes C, MD PCP - General 06/18/14 12/11/19 documented as of this encounter
--- OUTSIDE RECORDS SUMMARY | 2022-01-26 11:59 | XMS_ITS | Encounter Summary ---
:1955 Author Organization [facility] Address [address] [place] [address] Care Team Providers Name Role Phone Lurdes Thomas MD Primary Care Provider Reason for Visit Reason Comments Prior Authorization Request Encounter Details Date Type Department Care Team Description 09/11/2018 Telephone edo Maria Esther Phan [facility] MD Prem Request Neurology 3931 [facility] [address] [place] [address] [place], [place] [phone] Social History Tobacco Use Types Packs/Day Years [...] PA was approved from 08/14/18 to 09/13/19. PA#[id number] Called [employer] and told them PA was approved. They will expedite shipping and get to pt by Monday. Copy of PA approval sent to [facility]. Abi Laughlin - 09/13/2018 4:41 PM CDT Patient's spouse called regarding below message She can be contacted at [phone] - spouse's number or her own number [phone] Abi Laughlin 09/13/2018, 4:42 PM Maria Esther Phan MD - 09/13/2018 3:46 PM CDT Jeannette, I went to the website, will not allow me to start an account as I apparently already have on, I asked for a password reset, and received no e-mail to reset. I called this agency ([facility] -whomever they might be) and they told [...] 137 mg ER capsules 1. Go to Xunlei and click Enter a Ann 2. Enter the pt's Last name, and the Ann Ann: [id number] Pt's Last name: Poly : 1955 3. Complete th form and click: Send to Plan for approval documented in this encounter Plan of Treatment Not on filedocumented as of this encounter Visit Diagnoses Not on filedocumented in this encounter Care Teams Stone Carver Relationship Specialty Start Date End Date Lurdes Thomas MD PCP - General 06/18/14 12/11/19 documented as of this encounter
--- OUTSIDE RECORDS SUMMARY | 2022-01-26 11:59 | XMS_ITS | Encounter Summary ---
:1955 Author Organization [facility] Address [address], [place] [address] Care Team Providers Name Role Phone Lurdes Thomas MD Primary Care Provider Reason for Visit Reason Comments Refill Encounter Details Date Type Department Care Team Description 07/31/2018 Telephone [facility] Hilario, RN Refill [address] [place], [place] [address] Social History Tobacco Use [...] Hilario RN - 07/31/2018 10:11 AM CDT [facility] calling for refill on GoCovri. To be faxed to [phone]. He is seen at [facility], not [facility]. Please take care of. documented in this encounter Plan of Treatment Not on filedocumented as of this encounter Visit Diagnoses Not on filedocumented in this encounter Care Teams Instrument Assembler Relationship Specialty Start Date End Date Serum, Lurdes C, MD PCP - General 06/18/14 12/11/19 documented as of this encounter
--- OUTSIDE RECORDS SUMMARY | 2022-01-26 11:59 | XMS_ITS | Encounter Summary ---
:1955 Author Organization [employer] Address [address], [place] [address] Care Team Providers Name Role Phone Lurdes Thomas MD Primary Care Provider Reason for Visit Reason Comments QUESTIONS, GENERAL MRI and DBS Encounter Details Date Type Department Care Team Description 10/22/2018 Telephone [facility] Hilario, RN QUESTIONS, GENERAL (MRI [address] arriaga and DBS) [place], [place] [address] [facility] [phone] Social History Tobacco Use Types Packs/Day Years [...] back. [place] [facility] [place] is receiving his care over [...] on filedocumented in this encounter Care Teams Packing Room Supervisor Relationship Specialty Start Date End Date Lurdes Thomas MD PCP - General 06/18/14 12/11/19 documented as of this encounter
--- OUTSIDE RECORDS SUMMARY | 2022-01-26 11:59 | XMS_ITS | Encounter Summary ---
:1955 Author Organization [facility] Address [address] [place] [address] Care Team Providers Name Role Phone Lurdes Thomas MD Primary Care Provider Reason for Visit Reason Comments Refill Encounter Details Date Type Department Care Team Description 06/03/2019 Refill [facility] Neuroscience Maria Esther Reis MD Refill Center Neurology 3931 [facility] [address] [place] [address] [place] [address] [phone] Social History Tobacco Use Types Packs/Day Years Used Date Smoking Tobacco: Never Smokeless Tobacco: Never Alcohol Use Standard Drinks/Week Comments Yes 0 (1 standard drink = 0.6 oz pure alcoho l) Sex Assigned at Date Recorded Not on file documented as of this encounter Nursing Notes Rachel Brown RN - 06/03/2019 1:11 PM CST Incorrect provider. Rachel Brown RN RATION MECHANIC HELPER documented in this encounter Plan of Treatment Not on filedocumented as of this encounter Visit Diagnoses Not on filedocumented in this encounter Care Teams Marionette Performer Relationship Specialty Start Date End Date Lurdes Thomas MD PCP - General 06/18/14 12/11/19 documented as of this encounter
--- OUTSIDE RECORDS SUMMARY | 2022-01-26 11:59 | XMS_ITS | Encounter Summary ---
:1955 Author Organization [facility] Address [address], [place] [address] Care Team Providers Name Role Phone Lurdes Thomas MD Primary Care Provider Reason for Visit Reason Onset Date Comments Refill 07/31/2018 Encounter Details Date Type Department Care Team Description 07/31/2018 Refill [facility] Neuroscience Maria Esther Reis MD Refill Center Neurology 3931 [facility] [address] [facility] [place] [address] [place] [address] [phone] Social History Tobacco Use Types Packs/Day Years [...] on filedocumented in this encounter Care Teams Umbrella Tipper Machine Relationship Specialty Start Date End Date Lurdes Thomas MD PCP - General 06/18/14 12/11/19 documented as of this encounter
--- OUTSIDE RECORDS SUMMARY | 2022-01-26 11:59 | XMS_ITS | Encounter Summary ---
:1955 Author [facility] Address [address] [place] [address] Care Team Providers Name Role Phone Samantha Stauffer MD Primary Care Provider [phone] Reason for Visit Auth/Cert Specialty Diagnoses / Procedures Referred By Contact Refer red To Contact Diagnoses Parkinson's disease (HRC) Procedures RIGHT DEEP BRAIN STIMULATOR GENERATOR REPLACEMENT Referral ID Status Reason Start Date Expiration Date Visits Requ ested Visits Authorized [id number] 1 1 Encounter Details Date Type Department Care Team Description 12/12/2019 Hospital Encounter Mandaen Operating Clementine Kaiser MD Parkinson's disease Room 3931 [facility] ([facility] [address] [place] [address] [place] [address] [phone] Social History Tobacco Use Types Packs/Day Years [...] in this encounter Discharge Instructions Discharge InstructionsRubina oGmez RN - 12/12/2019 9:00 AM CDT Images [...] upper arm muscles. This includes pushing a nurse behavioral health care or vacuum and mopping floors. It also [...] can you learn more? 1. Go to [email or web address] or [email or web address] Technologies. 2. Enter D150 in the search box. Current as of: April 09, 2019?Content Version: 12.4 ?? zeeWAVES. Care instructions adapted under license by your healthcare professional. If you have questions abouta medical condition or this instruction, always ask your healthcare professional. zee[employer]AVES disclaims any warranty or liability for your [...] on Keflex including possible side effects. Prescriptions [facility] [place]. Belongings checklist reviewed with patient and belongings [...] Kaiser MD - 12/12/2019 8:17 AM CDT [facility] Operative Note Surgery Date: 12/12/2019 [...] 8-10 minutes) Implants: Activa PC Model number [id number] Serial No: [id number] Post-op Diagnosis: Parkinson's Disease, Right Infraclavicular IPG [...] - Rapid (COVID-19) (12/12/2019 6:06 AM CDT) [facility] Method Time Signature COVID-19 Not Not 12/12/2019 [facility] Interpretation Detected Detected 7:04 AM CDT LABORATORY Specimen Anatomical Collection Method Collection Time Receive d Time (Source) Location / / Volume Laterality Swab (Source Non-blood 12/12/2019 6:06 AM 0 6:09 Required) Collection / CDT AM CDT Unknown Narrative [facility] - 12/12/2019 7:04 A M CDT Test performed by real-time PCR. This test has been authorized by the FDA under an Emergency Use Authorization (EUA) for use by authorized laboratories. Jorge L Kaiser MD LAB_1 Performing Organization Address City/State/ZIP Code Phon e Number [facility] [address] [place] [address] documented in this encounter Visit Diagnoses Diagnosis Parkinson's disease (HRC) - Primary documented in this encounter Admitting Diagnoses Diagnosis Parkinson's disease (HRC) documented in this encounter Administered Medications Inactive Administered Medications - up to 3 most recent administrations Medication Order MAR Action Action Date Dose Rate Site bupivacaine-epinephrine PF Given 12/12/2019 7:58 AM CDT 20 mL (SENSORCAINE) 0.25% -1:040998 injection ONCE PRN, Starting on Stacey 12/12/19 at 0758, Until Stacey 12/12/19 at 2143, Intra-op gentamicin 80 mg-clindamycin 900 mg in sodium Given 8:02 AM CDT 100 mL chloride 1000 mL (DABS) irrigation solut ion ONCE PRN, Starting on Tsacey 12/12/19 at 0802, Intra-op lactated ringers infusion [...] (COMPLETED) 0735 (Given - Provider: Luis Anaya, TESTER EQUIPMENT, MEETING PLANNER) 2 g, Intravenous, Administer over 30 Min [...] (Anesthesia Fluid - Provider: Luis Anaya APRN, MEETING PLANNER) 25 mL/hr, Intravenous, at 25 mL/hr, CONT [...] Lozenge, Oral, Q2H PRN, Throat Pain, Starting [facility] 12/12/19 at 0 957 bisacodyl (DULCOLAX) rectal suppository 10 mg 10 mg, Rectal, DAILY PRN, Other, Moderat e Constipation, Starting [facility] 12/12/19 at 0830, If unable to take oral senna (SENOKOT) or senna (SENOKOT) is ineffective., Post-op bupivacaine-epinephrine PF (SENSORCAINE) 0.25% -1:442024 injecti on 0758 (Given - Provider: Jorge L Kaiser MD) ONCE PRN, Starting [facility] 12/12/19 at 0758, Intra-op gentamicin 80 mg-clindamycin 900 mg in s odium chloride 1000 mL (DABS) irrigation solution 0802 (Given - Provid er: Jorge L Kaiser MD) ONCE PRN, Starting [facility] 12/12/19 at 0802, Intra-op HYDROcodone-acetaminophen (NORCO) 5-325 MG per tablet 1-2 Tablet 1-2 Tablet, Oral, Q4H PRN, Other, Modera te Pain (pain score 5-7), Starting [facility] 12/12/19 at 0830, Post-op HYDROmorphone (DILAUDID) injection 0.3-0.5 mg 0.3-0.5 mg, Intravenous, Q2H PRN, Other, Severe Pain (pain score 8-10) if unable to take oral medications or for pain score increasing by 3 in 30 minutes, Starting [facility] 12/12/19 at 1216, May administer 1 hour after ORAL opioid administration if given for pain score escalation. Do NOT administer at the same time as ORAL opioids. HOLD if on EXECUTIVE PERSONAL ASSISTANT., Post-op lidocaine (UROJET) 2 % prefilled syringe [...] time as IV opioids. HOLD if on EXECUTIVE PERSONAL ASSISTANT., Post-op senna (SENOKOT) tablet 1-2 Tablet 1-2 Tablet, Oral, BID PRN, Other, Modera te Constipation, Starting [facility] 12/12/19 at 0830, Hold for loose stools, Post-op documented in this encounter Care Teams Clinical Care Manager Relationship Specialty Start Date End Date Samantha Stauffer MD PCP - General Family Practice 12/12/191999 [place] [address] documented as of this encounter
--- OUTSIDE RECORDS SUMMARY | 2022-01-26 11:59 | XMS_ITS | Encounter Summary ---
:1955 Author Organization [employer] Address [address] [place] [address] Care Team Providers Name Role Phone Samantha Stauffer MD Primary Care Provider [phone] Reason for Visit Reason Comments Nurse Visit Encounter Details Date Type Department Care Team Description 12/25/2019 Office Visit Specialty Center 3931 Nurse, P3931 Nsu En counter for post Neurosurgery surgical wound check 3931 [facility]. (Primary Dx) [place], [place] [address] Social History Tobacco Use Types Packs/Day Years [...] in another medication such as Percocet or Schertz). ?? If you are still taking prescription [...] Primary documented in this encounter Care Teams Trackless Trolley Driver Relationship Specialty Start Date End Date Samantha Stauffer MD PCP - General Family Practice 12/12/191999 [place] [address] documented as of this encounter
--- OUTSIDE RECORDS SUMMARY | 2022-01-26 11:59 | XMS_ITS | Encounter Summary ---
:1955 Author Organization [facility] Address [address], [place] [address] Care Team Providers Name Role Phone Lurdes Thomas MD Primary Care Provider Reason for Referral Procedure/Equipment (Routine) - Incomplete Specialty Diagnoses / Procedures Referred By Contact Refer red To Contact Diagnoses Dysphagia, oropharyngeal phase Maria Esther Phan MD Procedures [place] Video Swallow Study [address] [place], [place] [address] Referral ID Status Reason Start Date Expiration Date Visits V isits Requested Authorized [id number] Incomplete 06/24/2019 09/22/2020 1 1 HING MILL OPERATOR Reason for Visit Reason Comments Parkinson's Disease Therapies (Routine) - Closed Specialty Diagnoses / Procedures Referred By Contact Refer red To Contact Diagnoses Dysphagia, unspecified type Parkinson's disease (HRC) Maria Esther Phan MD [address] [place], [place] [address] Referral ID Status Reason Start Date Expiration Date Visits Requ ested Visits Authorized [id number] Closed 06/17/2019 08/16/2019 1 1 Encounter Details Date Type Department Care Team Description 06/24/2019 Office Visit Mesfin Fong, Dysphagia, [facility] CLOTH FRAMER oropharyngeal phase Speech Therapy [address] (Primary Dx) [address] [place], [place] [id number] [place] [address] [phone] Social History Tobacco Use Types Packs/Day Years Used Date Smoking Tobacco: Never Smokeless Tobacco: Never Alcohol Use Standard Drinks/Week Comments Yes 0 (1 standard drink = 0.6 oz pure alcoho l) Sex Assigned at Date Recorded Not on file documented as of this encounter Progress Notes Mesfin Morgan SLP - 06/24/2019 3:00 PM CST Pt seen, referred for MBSS HING MILL OPERATOR documented in this encounter Plan of Treatment Not on filedocumented as of this encounter Results FL Video Swallow Study (06/24/2019 4:10 PM CRUSHING MILL OPERATOR) Anatomical Region Laterality Modality Neck, Chest Radio Fluoroscopy Specimen (Source) Anatomical Collection Method Collection Time Re ceived Time Location / / Volume Laterality 06/24/2019 4:10 PM CRUSHING MILL OPERATOR Narrative 06/24/2019 5:11 PM CRUSHING MILL OPERATOR EXAM: [place] VIDEO SWALLOW STUDY LOCATION: [facility] DATE/TIME: 06/24/2019 4:10 PM INDICATION: Difficulty swallowing. [...] original. EXAM: FL VIDEO SWALLOW STUDY LOCATION: [facility] DATE/TIME: 06/24/2019 4:10 PM INDICATION: Difficulty swallowing. [...] as described above. Maria Esther Phan MD [facility] documented in this encounter Visit Diagnoses Diagnosis Dysphagia, oropharyngeal phase - Primary Dysphagia, oropharyngeal phase documented in this encounter Care Teams Production Line Solderer Relationship Specialty Start Date End Date Lurdes Thomas MD PCP - General 06/18/14 12/11/19 documented as of this encounter
--- OUTSIDE RECORDS SUMMARY | 2022-01-26 11:59 | XMS_ITS | Encounter Summary ---
:1955 Author [facility] Address [address] [address] Care Team Providers Name Role Phone Lurdes Thomas MD Primary Care Provider Reason for Visit Reason Comments Video Visit Consult/Transfer Care (Routine) - Closed Specialty Diagnoses / Procedures Referred By Contact Refer red To Contact Diagnoses Parkinson's disease (HRC) Maria Esther Phan MD [address] [place], [place] [address] Referral ID Status Reason Start Date Expiration Date Visits Requ ested Visits Authorized [id number] Closed 09/12/2019 12/11/2020 1 1 Encounter Details Date Type Department Care Team Description 09/18/2019 Telemedicine Specialty Center 3931 Divina Kaiser MD Parkinson's disease Neurosurgery 3931 [facility] ([facility] (Primary Dx) 3931 [facility] [id number] [phone] Social History Tobacco Use Types Packs/Day Years [...] screening: no ?? Confirmed that patient has Inductly downloaded and ready: Yes ?? Patient is aware that provider will call at appointment time. ?? Jorge L Kaiser MD - 09/18/2019 1:00 PM CDT Date of Service: 09/18/19 Andrew Pang is a 64 y.o. male. Neurosurgery consultation is requested by Maria Esther Elizabeth Chief concern: Parkinson's disease HPI: Andrwe Pang has Parkinson's disease and underwent bilateral [...] Primary documented in this encounter Care Teams Budget Analyst Relationship Specialty Start Date End Date Lurdes Thomas MD PCP - General 06/18/14 12/11/19 documented as of this encounter
--- OUTSIDE RECORDS SUMMARY | 2022-01-26 11:59 | XMS_ITS | Encounter Summary ---
:1955 Author Organization [facility] Address [address], [place] [address] Care Team Providers Name Role Phone Lurdes Thomas MD Primary Care Provider Reason for Visit Reason Onset Date Comments Refill 08/01/2019 Encounter Details Date Type Department Care Team Description 08/01/2019 Refill [facility] Neuroscience Maria Esther Reis MD Refill Center Neurology [address] [facility] [address] [facility] [place] [address] [place] [address] [phone] Social History Tobacco Use Types Packs/Day Years [...] at bedtime Qty: 60 Last Refill: 07/08/2019 Senior Executive Compensation Analyst/Appt Center: Was the pharmacy entered into the Preferred Pharmacy field? Yes Abi Laughlin 08/01/2019, 10:31 AM documented in this encounter Plan of Treatment Not on filedocumented as of this encounter Visit Diagnoses Not on filedocumented in this encounter Care Teams Deputy Chief Executive Relationship Specialty Start Date End Date Lurdes Thomas MD PCP - General 06/18/14 12/11/19 documented as of this encounter
--- OUTSIDE RECORDS SUMMARY | 2022-01-26 11:59 | XMS_ITS | Encounter Summary ---
:1955 Author Organization [facility] Address [address] [place] [address] Care Team Providers Name Role Phone Lurdes Thomas MD Primary Care Provider Reason for Visit Reason Comments Prior Authorization Request Encounter Details Date Type Department Care Team Description 08/03/2018 Telephone 365 Data CentersMaria Esther Walker A [facility] MD Prem Request Neurology 3931 [facility] [address] [facility] [place] [address] [place], [place] [phone] Social History Tobacco Use Types Packs/Day Years [...] on filedocumented in this encounter Care Teams Open Hearth Furnace Operator Helper Relationship Specialty Start Date End Date Lurdes Thomas MD PCP - General 06/18/14 12/11/19 documented as of this encounter
--- OUTSIDE RECORDS SUMMARY | 2022-01-26 11:59 | XMS_ITS | Encounter Summary ---
:1955 Author Organization [facility] Address [address] [place] [address] Care Team Providers Name Role Phone Lurdes Thomas MD Primary Care Provider Encounter Details Date Type Department Care Team Description 04/12/2019 Telephone [facility] Neuroscience Princess Phan, Center Neurology [address] [place] [address] [place] [address] [phone] (Wo rk) Social History Tobacco Use Types [...] folder as COURT Laughlin 04/12/2019, 2:20 PM [place] TIRE SALES MANAGER documented in this encounter Plan of Treatment Not on filedocumented as of this encounter Visit Diagnoses Not on filedocumented in this encounter Care Teams Shift Mechanic Relationship Specialty Start Date End Date Lurdes Thomas MD PCP - General 06/18/14 12/11/19 documented as of this encounter
--- OUTSIDE RECORDS SUMMARY | 2022-01-26 11:59 | XMS_ITS | Encounter Summary ---
:1955 Author Organization [facility] Address [address] [place] [address] Care Team Providers Name Role Phone Lurdes Thomas MD Primary Care Provider Encounter Details Date Type Department Care Team Description 05/09/2018 Telephone [facility] Princess Phan, [place] [facility] [address] [facility] [address] [place] [address] [place], [place] [address] (Wo rk) Social History Tobacco Use Types [...] script stating-- need to clarify medication Rytary 11.75-803 caps. Please advise. Nadia Persaud 05/09/2018, 9:20 AM [employer] documented in this encounter Plan of Treatment Not on filedocumented as of this encounter Visit Diagnoses Not on filedocumented in this encounter Care Teams Robotics Systems Engineer Relationship Specialty Start Date End Date Lurdes Thomas MD PCP - General 06/18/14 12/11/19 documented as of this encounter
--- OUTSIDE RECORDS SUMMARY | 2022-01-26 11:59 | XMS_ITS | Encounter Summary ---
:1955 Author Organization [facility] Address [address] [place] [address] Care Team Providers Name Role Phone Lurdes Thomas MD Primary Care Provider Reason for Visit Reason Comments Medication Questions Encounter Details Date Type Department Care Team Description 06/07/2018 Telephone [facility] Walker Medicat ion Questions Neuroscience Center MD Prem Neurology 3931 [facility] [address] [place] [address] [place], [place] [phone] (Wo rk) Social History Tobacco Use Types [...] of Dr. Phan' recommendations. Jeannette Porras RN ER MEDICAL DIRECTOR Maria Esther Phan MD - 06/08/2018 11:45 AM CST No problem with lansoprazole. ER MEDICAL DIRECTOR Yenny Ray - 06/07/2018 4:40 PM CST Pt natasha calling stating that pt was given a new medication by his PCP for acid reflex but they would like to know if Dr. Phan is ok with pt taking this medication. Pt was started on lansoprazole to treat the acid reflex. Please Advise ER MEDICAL DIRECTOR documented in this encounter Plan of Treatment Not on filedocumented as of this encounter Visit Diagnoses Not on filedocumented in this encounter Care Teams Window/Distribution Clerk Relationship Specialty Start Date End Date Lurdes Thomas MD PCP - General 06/18/14 12/11/19 documented as of this encounter
--- OUTSIDE RECORDS SUMMARY | 2022-01-26 11:59 | XMS_ITS | Encounter Summary ---
:1955 Author Organization [facility] Address [address], [place] [address] Care Team Providers Name Role Phone Samantha Stauffer MD Primary Care Provider [phone] Reason for Visit Auth/Cert Specialty Diagnoses / Procedures Referred By Contact Refer red To Contact Diagnoses Parkinson's disease (HRC) Procedures RIGHT DEEP BRAIN STIMULATOR GENERATOR REPLACEMENT Referral ID Status Reason Start Date Expiration Date Visits Requ ested Visits Authorized [id number] 1 1 Encounter Details Date Type Department Care Team Description 12/12/2019 Anesthesia Event [employer] Operating Migel Portillo MD [address] [place] [address] [facility] Nasim Armstrong MD [address] [place] [address] [place] [address] Anesthesia Record Procedure Summary Procedure [...] Portillo MD - 12/12/2019 11:16 AM CDT [facility] Anesthesia Post-op Note Patient: Andrew Chalberg Post-Op [...] Armstrong MD - 12/12/2019 7:16 AM CDT [facility] Anesthesia Pre-op Evaluation Procedure: Procedure(s): Right - [...] benefits and alternatives discussed with: Patient or Thin Film Technician agree tothe anesthesia treatment plan and Patient. [...] mL/hr documented in this encounter Care Teams Health And Wellness Coordinator Relationship Specialty Start Date End Date Samantha Stauffer MD PCP - General Family Practice 12/12/191999 [place] [address] documented as of this encounter
--- OUTSIDE RECORDS SUMMARY | 2022-01-26 11:59 | XMS_ITS | Encounter Summary ---
:1955 Author Organization [facility] Address [address], [place] [address] Care Team Providers Name Role Phone Samantha Stauffer MD Primary Care Provider Reason for Visit Reason Comments Labs Needed Encounter Details Date Type Department Care Team Description 11/27/2019 Telephone Specialty Center 393 1 Neurosurgery Aurora Ruiz, RN Labs Needed [address] [place], [place] [address] Social History Tobacco Use Types Packs/Day Years Used Date Smoking Tobacco: Never Smokeless Tobacco: Never Alcohol Use Standard Drinks/Week Comments Yes 0 (1 standard drink = 0.6 oz pure alcoho l) Sex Assigned at Date Recorded Not on file documented as of this encounter Nursing Notes Aurora Ruiz, RN - 11/27/2019 3:36 PM CDT Covid test ordered. MRSA test ordered and faxed to [facility]. Emailed surgical teaching information. documented in this encounter Plan of Treatment Not on filedocumented as of this encounter Visit Diagnoses Diagnosis Preop testing - Primary Preoperative examination, unspecified documented in this encounter Care Teams Data Architect Manager Relationship Specialty Start Date End Date Samantha Stauffer MD PCP - General Family Practice 12/12/191999 [place] [address] documented as of this encounter
--- OUTSIDE RECORDS SUMMARY | 2022-01-26 11:59 | XMS_ITS | Encounter Summary ---
:1955 [facility] Address [address], [place] [address] Care Team Providers Name Role Phone Lurdes Thomas MD Primary Care Provider Reason for Visit Reason Comments Dysphagia Encounter Details Date Type Department Care Team Description 06/24/2019 Office Visit [facility], [facility] oropharyngeal phase Speech Therapy [address] (Primary Dx) [address] [place], [place] [address] [place] [address] [phone] Social History Tobacco Use Types Packs/Day Years [...] goals established as no further intervention from CRIMINAL INVESTIGATIVE AGENT service is warranted at this time. VISIT INFORMATION [place] Insurance Info: Today's Visit Number: 1 Progress [...] Today: Exam completed Results reviewed. Pt and CRIMINAL INVESTIGATIVE AGENT watched MBSS video together with CRIMINAL INVESTIGATIVE AGENT pointing out anatomical landmarks and explaining how [...] Total Treatment Time: 35 minutes Nabila Morrell CCC-CRIMINAL INVESTIGATIVE AGENT 06/24/2019 OR PHYSICAL THERAPIST documented in this encounter Plan of Treatment Not on filedocumented as of this encounter Visit Diagnoses Diagnosis Dysphagia, oropharyngeal phase - Primary documented in this encounter Care Teams Wine Maker Relationship Specialty Start Date End Date Lurdes Thomas MD PCP - General 06/18/14 12/11/19 documented as of this encounter
--- OUTSIDE RECORDS SUMMARY | 2022-01-26 11:59 | XMS_ITS | Encounter Summary ---
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 [address] [place], [place] [phone] Social History Tobacco Use Types Packs/Day Years [...] any sensory deficits. There are no tremors. Rceojs-fmep-[id number] is accurate. There is mild bradykinesia. He [...] coordination documented in this encounter Care Teams Instructor Trainer Canine Service Relationship Specialty Start Date End Date Lurdes Thomas MD PCP - General 06/18/14 12/11/19 documented as of this encounter
--- OUTSIDE RECORDS SUMMARY | 2022-01-26 11:59 | XMS_ITS | Encounter Summary ---
:1955 Author Organization [facility] Address [address] [place] [address] Care Team Providers Name Role Phone Lurdes Thomas MD Primary Care Provider Reason for Visit Reason Comments Concerns Battery getting low Encounter Details Date Type Department Care Team Description 08/28/2019 Telephone [facility] Walker Concern s (Battery Neuroscience Center MD Prem getting low) Neurology [address] [facility] [address] [place] [address] [place], [place] [phone] (Wo rk) Social History Tobacco Use Types [...] 09/13/2019. Please help them set up the [employer] madhav. Matt Cates RN 08/28/2019, 3:04 PM [...] filedocumented in this encounter Care Teams Director Investor Relations Relationship Specialty Start Date End Date Lurdes Thomas MD PCP - General 06/18/14 12/11/19 documented as of this encounter
--- OUTSIDE RECORDS SUMMARY | 2022-01-26 11:59 | XMS_ITS | Encounter Summary ---
:1955 Author Organization [facility] Address [address], [place] [address] Care Team Providers Name Role Phone Lurdes Thomas MD Primary Care Provider Reason for Visit Procedure/Equipment (Routine) - Incomplete Specialty Diagnoses / Procedures Referred By Contact Refer red To Contact Diagnoses Dysphagia, oropharyngeal phase [place], Maria Esther Amaro MD Procedures FL Video Swallow Study [address] [place], [place] [address] Referral ID Status Reason Start Date Expiration Date Visits V isits Requested Authorized [id number] Incomplete 06/24/2019 09/22/2020 1 1 Encounter Details Date Type Department Care Team Description 06/24/2019 Ancillary [facility] [place], Dysphagia, Procedure Neuroscience Center Maria Esther Amaro MD oropharyngeal phase Radiology Fluoro [address] [place] [address] [place] [address] [facility] [phone] [place] [address] Social History Tobacco Use Types Packs/Day [...] PM Dysphagia, Resul ts for this STUDY ASSOCIATE RELATIONS SPECIALIST oropharyngeal phase procedur e are in the results section. documented in this encounter Results FL Video Swallow Study (06/24/2019 4:10 PM ASSOCIATE RELATIONS SPECIALIST) Anatomical Region Laterality Modality Neck, Chest Radio Fluoroscopy Specimen (Source) Anatomical Collection Method Collection Time Re ceived Time Location / / Volume Laterality 06/24/2019 4:10 PM ASSOCIATE RELATIONS SPECIALIST Narrative 06/24/2019 5:11 PM ASSOCIATE RELATIONS SPECIALIST EXAM: [place] VIDEO SWALLOW STUDY LOCATION: [facility] DATE/TIME: 06/24/2019 4:10 PM INDICATION: Difficulty [...] original. EXAM: FL VIDEO SWALLOW STUDY LOCATION: [facility] DATE/TIME: 06/24/2019 4:10 PM INDICATION: Difficulty [...] (VARIBAR NECTAR) 40 Given 06/24/2019 4:12 PM ASSOCIATE RELATIONS SPECIALIST 20 mL % oral suspension 20 mL 20 mL, Oral, ONCE (NON-SCHEDULED), Starting on 06/24/19 at 1611, Until Discontinued, For 3 doses Inactive Administered Medications - up to 3 most recent administrations Medication Order MAR Action Action Date Dose Rate Site barium sulfate (ENTERO VU) Given 06/24/2019 4:12 PM ASSOCIATE RELATIONS SPECIALIST 20 mL suspension 20 mL 20 mL, Oral, ONCE (NON-SCHEDULED), Starting on Mon06/24/19 at 1611, For 1 dose barium sulfate (EZ-DISK) tablet 700 mg Given 06/24/2019 4:12 PM ASSOCIATE RELATIONS SPECIALIST 700 mg 700 mg, Oral, ONCE (NON-SCHEDULED), Starting on 06/24/19 at 1611, Until Mon06/24/19 at 1612, For 1 dose barium Sulfate (VARIBAR PUDDING) oral pudding 5 Given 06/24/2019 4:12 PM ASSOCIATE RELATIONS SPECIALIST 5 mL mL 5 mL, Oral, ONCE (NON-SCHEDULED), Starting on 06/24/19 at 1611, Until Mon06/24/19 at 1612, For 1 dose documented in this encounter Care Teams Mushroom Packer Relationship Specialty Start Date End Date Lurdes Thomas MD PCP - General 06/18/14 12/11/19 documented as of this encounter
--- OUTSIDE RECORDS SUMMARY | 2022-01-26 11:59 | XMS_ITS | Encounter Summary ---
:1955 [facility] Address [address] [place] [address] Care Team Providers Name Role Phone Lurdes Thomas MD Primary Care Provider Reason for Referral Therapies (Routine) - Closed Specialty Diagnoses / Procedures Referred By Contact Refer red To Contact Diagnoses Dysphagia, unspecified type Parkinson's disease (HRC) Maria Esther Phan MD [address] [place], [place] [address] Referral ID Status Reason Start Date Expiration Date Visits Requ ested Visits Authorized [id number] Closed 06/17/2019 08/16/2019 1 1 Scheduling Instructions Your provider has recommended an appoint ment with a [facility]rap[facility]. Please stop at the clinic check out desk for as sistance with scheduling or if you prefer to call for your appointment you may call [facility] at [phone]. We suggest you call your [facility] insurance company about your coverage and benefits for this appointment. OLOGIC TECHNOLOGY PROGRAM DIRECTOR Reason for Visit Reason Comments REPORTING, NEW SYMPTOMS Encounter Details Date Type Department Care Team Description 06/17/2019 [facility]phone [facility] Prem SYMPTOMS Neurology [address] [address] [place], [place] [phone] (Wo rk) Social History Tobacco Use Types [...] no call back needed at this time. OLOGIC TECHNOLOGY PROGRAM DIRECTOR Matt Cates RN - 06/17/2019 10:13 AM CST Nurse called Natasha and relayed message from Dr. Phan to her. She stated understanding and had no further questions at this time. She was in agreement with plan. Matt Cates RN 06/17/2019, 10:15 AM OLOGIC TECHNOLOGY PROGRAM DIRECTOR Maria Esther Phan MD - 06/17/2019 10:05 AM CST They should have his PCP check him and possily do a CXR if indicated. The we can have him see speechtherapy for swallow evaluation - order entered. OLOGIC TECHNOLOGY PROGRAM DIRECTOR Maximo Julio - 06/17/2019 8:16 AM CST Patients Natasha, calling to request call back regarding symptoms she is concerned about. She states the patient has been coughing for the past week and she thought it was due to a cold however, now she thinks it is from aspiration from Parkinson's. Please call her back when available, Thank you. OLOGIC TECHNOLOGY PROGRAM DIRECTOR documented in this encounter Plan of Treatment Scheduled Referrals Name Type Priority Associated Diagnoses Order S chedule Speech Therapy Referral Routine Dysphagia, unspe cified type Ordered: 06/17/2019 Parkinson's disease (HRC) documented as of this encounter Visit Diagnoses Diagnosis Dysphagia, unspecified type - Primary Parkinson's disease (HRC) documented in this encounter Care Teams Process Manager Relationship Specialty Start Date End Date Lurdes Thomas MD PCP - General 06/18/14 12/11/19 documented as of this encounter
--- OUTSIDE RECORDS SUMMARY | 2022-01-26 11:59 | XMS_ITS | Encounter Summary ---
:1955 Author Organization [facility] Address [address] [place] [address] Care Team Providers Name Role Phone Lurdes Thomas MD Primary Care Provider Reason for Visit Reason Comments QUESTIONS, GENERAL Encounter Details Date Type Department Care Team Description 09/17/2019 Telephone [facility] Maria Esther Phan, GENERAL Neuroscience Center MD Prem Neurology [address] [facility] [address] [place] [phone] (Wo rk) Social History Tobacco Use Types [...] the top of his limit. Gave him [place] DBS nurse line to call if he had programing questions. FYI. Maria Esther Phan MD - 09/23/2019 12:30 PM CDT OK, I will ask nursing for DBS programming with [place], to see if we can put off [...] Phan may have patient to go to [place] to have an adjustment. They would be interested in this if it is a possibility. Dr. Phan, please review and advise. Matt Cates RN 09/23/2019, 12:18 PM Sylvia Burgess - 09/23/2019 10:10 AM CDT Spouse called in, wanting to speak with Blaise about his battery and could be that it needs adjusting.Please call [phone] Sylvia Burgess 09/23/2019, 10:11 AM Matt Cates RN - 09/17/2019 12:30 PM CDT Spoke with Natasha and she requested number to [facility]. Nurse gave her appointment number and she was appreciative. She stated she has not further questions or concerns. Matt Cates RN 09/17/2019, 12:33 PM Deavughn Perry - 09/17/2019 12:27 PM CDT Andrew Pang's spouse, Natasha is calling and requesting for a return call from care team. Did not go into specifics what this is regarding. Devaughn Perry 09/17/2019, 12:28 PM documented in this encounter Plan of Treatment Not on filedocumented as of this encounter Visit Diagnoses Not on filedocumented in this encounter Care Teams Jersey Knitter Relationship Specialty Start Date End Date Lurdes Thomas MD PCP - General 06/18/14 12/11/19 documented as of this encounter
--- OUTSIDE RECORDS SUMMARY | 2022-01-26 11:59 | XMS_ITS | Encounter Summary ---
:1955 Author Organization [employer] Address [address] [place] [address] Care Team Providers Name Role Phone Lurdes Thomas MD Primary Care Provider Reason for Visit Reason Comments QUESTIONS, GENERAL MRI with DBS Encounter Details Date Type Department Care Team Description 10/18/2018 Telephone [facility] Shawnee Hilario, RN QUESTIONS, GENERAL (MRI [address] arriaga with DBS) [place], [place] [address] [facility] [phone] Social History Tobacco Use Types Packs/Day Years Used Date Smoking Tobacco: Never Smokeless Tobacco: Never Alcohol Use Standard Drinks/Week Comments Yes 0 (1 standard drink = 0.6 oz pure alcoho l) Sex Assigned at Date Recorded Not on file documented as of this encounter Nursing Notes Shawnee Hilario, RN - 10/18/2018 4:25 PM CDT There was no return phone call to [facility] today about getting system checked. Will send FYI to and then close encounter. Shawnee Hilario RN - 10/18/2018 9:06 AM CDT Patient and significant other calling because patient needs an MRI of his lumbar spine and was supposed to have this morning at [facility]. They wanted to fax us a form to complete verifying his DBS system is MRI eligible. We have not seen patient here for well over a year, he see's [place] Phan [place] [facility] [place]. I offered 3 options to them. They could come here and have the check. They could ask their doctor to order MRI over at [facility] and someone there can check it or they could contact [employer] and see if anyone could go out to [place] to check. She will call us back and let us know what they decide. documented in this encounter Plan of Treatment Not on filedocumented as of this encounter Visit Diagnoses Not on filedocumented in this encounter Care Teams Retail Assistant Manager Relationship Specialty Start Date End Date Lurdes Thomas MD PCP - General 06/18/14 12/11/19 documented as of this encounter
--- OUTSIDE RECORDS SUMMARY | 2022-01-26 11:59 | XMS_ITS | Encounter Summary ---
:1955 Author Organization [facility] Address [address], [place] [address] Care Team Providers Name Role Phone Lurdes Thomas MD Primary Care Provider Reason for Visit Reason Comments QUESTIONS, GENERAL Encounter Details Date Type Department Care Team Description 05/04/2018 Telephone [facility] Walker, GENERAL Neuroscience Center MD Prem Neurology [address] [facility] [address] [place] [phone] (Wo rk) Social History Tobacco Use Types [...] advise . Jeannette Michael 05/04/2018, 10:51 AM LE SCHOOL TUTOR documented in this encounter Plan of Treatment Not on filedocumented as of this encounter Visit Diagnoses Not on filedocumented in this encounter Care Teams Bill Checker Relationship Specialty Start Date End Date Lurdes Thomas MD PCP - General 06/18/14 12/11/19 documented as of this encounter
--- OUTSIDE RECORDS SUMMARY | 2022-01-26 12:00 | XMS_ITS | Encounter Summary ---
:1955 Author Organization [facility] Address [address], [place] [address] Care Team Providers Name Role Phone Lurdes Thomas MD Primary Care Provider Reason for Visit Reason Comments Spine Lumbar Encounter Details Date Type Department Care Team Description 06/02/2015 Office Visit [place] [facility] Chris Cain, Right -sided low back Therapy Aurora Briggs, PT pain with right-sided [address] [place] (Primary Dx) [place] [address] [place], [place] [phone] (Wo rk) Social History Tobacco Use Types Packs/Day Years Used Date Smoking Tobacco: Never Smokeless Tobacco: Never Alcohol Use Standard Drinks/Week Comments Yes 0 (1 standard drink = 0.6 oz pure alcoho l) Sex Assigned at Date Recorded Not on file documented as of this encounter Progress Notes Aurora Hickey, PT - 06/02/2015 10:07 AM CST Encounter date: 06/02/2015 Pt : 1955 [facility] Physical Therapy Progress Note Visit Number: 3 Initial Certification Period: 05/19/2015 to 08/17/15 Referring Provider: Dr. Maria Esther Phan Visit Diagnosis/ICD: Diagnosis ICD-10-CM ICD-9-CM 1. Right-sided low back pain with right-sided sciatica M54.41 724.3 Precautions: none Onset/Referral Date: 05/19/2015 Reason for Referral: -Outpatient PT. Orders: Evaluate and treat. [facility] Services: Programming RN, Social Work, [...] with REIL Treatment/Education Today: therapeutic ex (CPT 53164)5 min time spent with orthopedic assessment ultrasound (CPT 23871) 12 min US to right LB for 10 min, 1.3 w/cm2, continous therapeutic ex (CPT 78237) 30 min Reviewed and practiced his HEP: [...] manual therapy, exercise progression, modalities if needed. EY PLAYER documented in this encounter Plan of Treatment Not on filedocumented as of this encounter Visit Diagnoses Diagnosis Right-sided low back pain with right-beck ed sciatica (HRC) - Primary documented in this encounter Care Teams Medical Staff Services Coordinator Relationship Specialty Start Date End Date Lurdes Thomas MD PCP - General 06/18/14 12/11/19 documented as of this encounter
--- OUTSIDE RECORDS SUMMARY | 2022-01-26 12:00 | XMS_ITS | Encounter Summary ---
:1955 Author Organization [facility] Address [address], [place] [address] Care Team Providers Name Role Phone Lurdes Thomas MD Primary Care Provider Reason for Visit Reason Comments Spine Lumbar Encounter Details Date Type Department Care Team Description 07/16/2015 Office Visit [place] [facility] Chris Cain, Right -sided low back Therapy Aurora Briggs, PT pain with right-sided [address] [place] (Primary Dx) [place] [address] [place], [place] [phone] (Wo rk) Social History Tobacco Use Types Packs/Day Years Used Date Smoking Tobacco: Never Smokeless Tobacco: Never Alcohol Use Standard Drinks/Week Comments Yes 0 (1 standard drink = 0.6 oz pure alcoho l) Sex Assigned at Date Recorded Not on file documented as of this encounter Progress Notes Aurora Hickey, PT - 07/19/2015 1:13 PM CST Encounter date: 07/16/2015 Pt : 1955 [facility] Physical Therapy Progress Note/Discharge Summary Visit Number: 14 Initial Certification Period: 05/19/2015 to 08/17/15 Referring Provider: Dr. Maria Esther Phan Visit Diagnosis/ICD: Diagnosis ICD-10-CM ICD-9-CM 1. Right-sided low back pain with right-sided sciatica M54.41 724.3 Precautions: none Onset/Referral Date: 05/19/2015 Orders: Evaluate and treat. [facility] Services: Programming RN, Social Work, [...] above OBJ info and- therapeutic ex (CPT 32910)15 min reviewed /discussed HEP, home management, body mechanics with lifting, turning, pivoting ultrasound (CPT 76120) 12 min US to right LB for 10 min, 1.3 w/cm2, continuous manual therapy (CPT 67240) 18 min joint mobilization to lumbar spine [...] 75- 85% improvement Plan: will DC to [facility] at this time, encouraged Andrew to call if any questions, or return if needed Encounter Date: 07/16/2015 Pt : 1955 [facility] Physical Therapy Discharge Summary Patient was seen [...] to return to therapy if symptoms recur. ATTENDANT documented in this encounter Plan of Treatment Not on filedocumented as of this encounter Visit Diagnoses Diagnosis Right-sided low back pain with right-beck ed sciatica (HRC) - Primary documented in this encounter Care Teams Playground Attendant Relationship Specialty Start Date End Date Lurdes Thomas MD PCP - General 06/18/14 12/11/19 documented as of this encounter
--- OUTSIDE RECORDS SUMMARY | 2022-01-26 12:00 | XMS_ITS | Encounter Summary ---
:1955 Author Organization [facility] Address [address], [place] [address] Care Team Providers Name Role Phone Lurdes Thomas MD Primary Care Provider Reason for Visit Reason Comments Spine Lumbar Encounter Details Date Type Department Care Team Description 06/18/2015 Office Visit [place] [facility] Chris Cain, Right -sided low back Therapy Aurora Briggs, PT pain with right-sided [address] [place] (Primary Dx) [place] [address] [place], [place] [phone] (Wo rk) Social History Tobacco Use Types Packs/Day Years Used Date Smoking Tobacco: Never Smokeless Tobacco: Never Alcohol Use Standard Drinks/Week Comments Yes 0 (1 standard drink = 0.6 oz pure alcoho l) Sex Assigned at Date Recorded Not on file documented as of this encounter Progress Notes Aurora Hickey, PT - 06/23/2015 2:02 PM CST Encounter date: 06/18/2015 Pt : 1955 [facility] Physical Therapy Progress Note Visit Number: 9 Initial Certification Period: 05/19/2015 to 08/17/15 Referring Provider: Dr. Maria Esther Phan Visit Diagnosis/ICD: Diagnosis ICD-10-CM ICD-9-CM 1. Right-sided low back pain with right-sided sciatica M54.41 724.3 Precautions: none Onset/Referral Date: 05/19/2015 Orders: Evaluate and treat. [facility] Services: Programming RN, Social Work, [...] above OBJ info and- therapeutic ex (CPT 33805)20 min side glides left reviewed flexion in step standing, left, than right. He still gets a little glitch on right side single leg raise in hands/knees position, 5 sec hold - in 1/2 sitting, hip hiking right for QL. He reports feeling an excellent stretch with this, no pain. ultrasound (CPT 67285) 11 min US to right LB for 10 min, 1.3 w/cm2, continuous manual therapy (CPT 19600) 12 min soft tissue mobilization, and use of division sergeant tool to T and lumbar paraspinals Timed [...] therapy beyondinitial 6 that are set up YMAN documented in this encounter Plan of Treatment Not on filedocumented as of this encounter Visit Diagnoses Diagnosis Right-sided low back pain with right-beck ed sciatica (HRC) - Primary documented in this encounter Care Teams Director Of Slot Operations Relationship Specialty Start Date End Date Lurdes Thomas MD PCP - General 06/18/14 12/11/19 documented as of this encounter
--- OUTSIDE RECORDS SUMMARY | 2022-01-26 12:00 | XMS_ITS | Encounter Summary ---
:1955 Author Organization [employer] [facility] Corporation[facility] [employer] [employer] Telegraph Address [address] [place] [address] Care Team Providers Name Role Phone Lurdes Thomas MD Primary Care Provider Reason for Visit Reason Comments Device Check Consult/Transfer Care (Routine) - Closed Specialty Diagnoses / Procedures Referred By Contact Refer red To Contact Diagnoses Parkinson's disease ([facility]) Maria Esther Phan MD [address] [place], [place] [address] Referral ID Status Reason Start Date Expiration Date Visits Requ ested Visits Authorized [id number] Closed 08/08/2017 11/07/2018 1 1 Encounter Details Date Type Department Care Team Description 08/08/2017 Nursing Visit [facility] Hilario, Parkinson's disease ([facility]) (P rimary Dx); [address] RN Encounter for fitting and adjustment of neuropacemaker of brain [address] [place], [place] [id number] Social History Tobacco Use Types Packs/Day Years [...] Final settings: No changes were made 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
--- OUTSIDE RECORDS SUMMARY | 2022-01-26 12:00 | XMS_ITS | Encounter Summary ---
:1955 Author Organization [facility] Address [address] [address] Care Team Providers Name Role Phone Lurdes Thomas MD Primary Care Provider Reason for Visit Reason Comments Spine Lumbar Encounter Details Date Type Department Care Team Description 07/02/2015 Office Visit [place] [facility] Chris Cain, Right -sided low back Therapy Aurora Briggs, PT pain with right-sided [address] granados (Primary Dx) [place] [address] [place], [place] [phone] (Wo rk) Social History Tobacco Use Types Packs/Day Years Used Date Smoking Tobacco: Never Smokeless Tobacco: Never Alcohol Use Standard Drinks/Week Comments Yes 0 (1 standard drink = 0.6 oz pure alcoho l) Sex Assigned at Date Recorded Not on file documented as of this encounter Progress Notes Aurora Hickey, PT - 07/02/2015 11:56 AM CST Encounter date: 07/02/2015 Pt : 1955 Jasmine [facility] Physical Therapy Progress Note Visit Number: 12 Initial Certification Period: 05/19/2015 to 08/17/15 Referring Provider: Dr. Maria Esther Phan Visit Diagnosis/ICD: Diagnosis ICD-10-CM ICD-9-CM 1. Right-sided low back pain with right-sided sciatica M54.41 724.3 Precautions: none Onset/Referral Date: 05/19/2015 Orders: Evaluate and treat. [facility] Services: Programming RN, Social Work, [...] above OBJ info and- therapeutic ex (CPT 11246)20 min reviewed and practiced H/K's position cat camel and hand knee rock,and opp arm/leg raise ultrasound (CPT 98677) 10 min US to right LB for 10 min, 1.3 w/cm2, continuous manual therapy (CPT 80585) 15 min joint mobilization to lumbar spine gr 3 soft tissue mobilization, and use of auctioneer automobile tool to T and lumbar paraspinals Afterwards [...] his neurologist for his brain stimulator recheck CTOR OF GROUP COUNSELING PROGRAM documented in this encounter Plan of Treatment Not on filedocumented as of this encounter Visit Diagnoses Diagnosis Right-sided low back pain with right-beck ed sciatica (HRC) - Primary documented in this encounter Care Teams Surgical Product Sales Consultant Relationship Specialty Start Date End Date Lurdes Thomas MD PCP - General 06/18/14 12/11/19 documented as of this encounter
--- OUTSIDE RECORDS SUMMARY | 2022-01-26 12:00 | XMS_ITS | Encounter Summary ---
:1955 Author Organization [employer] Address [address] [place] [address] Care Team Providers Name Role Phone Lurdes Thomas MD Primary Care Provider Reason for Visit Reason Comments Research Encounter Details Date Type Department Care Team Description 05/21/2015 Telephone [facility] Maria Esther Phan MD Research [address] [place], [place] [address] [place] [address] (Wo rk) Social History Tobacco [...] [facility]. [facility] would like to pursue the study and understands that enrollment may close before he hasbeen stable for 60 days on a different anti-depressant. Zoloft is an acceptable medication. Pharmacyhas been updated. Please write specific instructions on this switch. FOAM KISS MAKER documented in this encounter Plan of Treatment Not on filedocumented as of this encounter Visit Diagnoses Not on filedocumented in this encounter Care Teams Counter Former Relationship Specialty Start Date End Date Lurdes Thomas MD PCP - General 06/18/14 12/11/19 documented as of this encounter
--- OUTSIDE RECORDS SUMMARY | 2022-01-26 12:00 | XMS_ITS | Encounter Summary ---
:1955 Author Organization [facility] Address [address] [address] Care Team Providers Name Role Phone Lurdes Thomas MD Primary Care Provider Reason for Visit Reason Comments Spine Lumbar Encounter Details Date Type Department Care Team Description 06/10/2015 Office Visit [place] [facility] Chris Cain, Right -sided low back Therapy Aurora Briggs, PT pain with right-sided [address] granados (Primary Dx) [place] [address] [place], [place] [phone] (Wo rk) Social History Tobacco Use Types Packs/Day Years Used Date Smoking Tobacco: Never Smokeless Tobacco: Never Alcohol Use Standard Drinks/Week Comments Yes 0 (1 standard drink = 0.6 oz pure alcoho l) Sex Assigned at Date Recorded Not on file documented as of this encounter Progress Notes Aurora Hickey, PT - 06/23/2015 2:04 PM CST Encounter date: 06/10/2015 Pt : 1955 J[facility] Physical Therapy Progress Note Visit Number: 7 Initial Certification Period: 05/19/2015 to 08/17/15 Referring Provider: Dr. Maria Esther Phan Visit Diagnosis/ICD: Diagnosis ICD-10-CM ICD-9-CM 1. Right-sided low back pain with right-sided sciatica M54.41 724.3 Precautions: none Onset/Referral Date: 05/19/2015 Orders: Evaluate and treat. [facility] Services: Programming RN, Social Work, [...] above OBJ info and- therapeutic ex (CPT 20909)12 min hip series of stretches to combine some of the exercises he has been doing reviewed flexion in step standing, left, than right. He still gets a little glitch on right side side glide left single leg raise in hands/knees position, 5 sec hold manual therapy (CPT 11884) 10 min In left sanchez position, MET to low T and lumbar spine ultrasound (CPT 89240) 11 min US to right LB for 10 min, 1.3 w/cm2, continuous manual therapy (CPT 24019) 12 min soft tissue mobilization use of associate dean of women tool to T and lumbar parsspinals Timed [...] manual therapy, exercise progression, modalities if needed. IDE ENERGY SALES REPRESENTATIVES documented in this encounter Plan of Treatment Not on filedocumented as of this encounter Visit Diagnoses Diagnosis Right-sided low back pain with right-beck ed sciatica (HRC) - Primary documented in this encounter Care Teams Captain Waiter Relationship Specialty Start Date End Date Lurdes Thomas MD PCP - General 06/18/14 12/11/19 documented as of this encounter
--- OUTSIDE RECORDS SUMMARY | 2022-01-26 12:00 | XMS_ITS | Encounter Summary ---
:1955 Author Organization [employer] Address [address] [place] [address] Care Team Providers Name Role Phone Lurdes Thomas MD Primary Care Provider Reason for Visit Reason Comments QUESTIONS, GENERAL Encounter Details Date Type Department Care Team Description 07/06/2017 Telephone [facility] Shawnee Hilario, RN QUESTIONS, GENERAL [address] [place], [place] [address] Social History Tobacco Use [...] seen next and get his battery checked. LASSER documented in this encounter Plan of Treatment Not on filedocumented as of this encounter Visit Diagnoses Not on filedocumented in this encounter Care Teams Drop Wire Stringer Relationship Specialty Start Date End Date Lurdes Thomas MD PCP - General 06/18/14 12/11/19 documented as of this encounter
--- OUTSIDE RECORDS SUMMARY | 2022-01-26 12:00 | XMS_ITS | Encounter Summary ---
:1955 Author Organization [employer] Address [address], [place] [address] Care Team Providers Name Role Phone Lurdes Thomas MD Primary Care Provider Reason for Visit Reason Comments Social Service Encounter Details Date Type Department Care Team Description 05/19/2015 Office Visit [facility] Fab[facility] Beverly, Parkinson' s disease Services PERFORMANCE TEST ENGINEER (Primary Dx) [address] [place] [address] Social History Tobacco Use Types [...] stress and workplace environment. 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 He is trying to do parts of [...] information provided for future concerns or questions. 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
--- OUTSIDE RECORDS SUMMARY | 2022-01-26 12:00 | XMS_ITS | Encounter Summary ---
:1955 Author Organization [facility] Address [address], [place] [address] Care Team Providers Name Role Phone Lurdes Thomas MD Primary Care Provider Reason for Visit Reason Comments Spine Lumbar Encounter Details Date Type Department Care Team Description 06/16/2015 Office Visit [place] [facility] Chris Cain, Right -sided low back Therapy Aurora Briggs, PT pain with right-sided [address] granados (Primary Dx) [place] [address] [place], [place] [phone] (Wo rk) Social History Tobacco Use Types Packs/Day Years Used Date Smoking Tobacco: Never Smokeless Tobacco: Never Alcohol Use Standard Drinks/Week Comments Yes 0 (1 standard drink = 0.6 oz pure alcoho l) Sex Assigned at Date Recorded Not on file documented as of this encounter Progress Notes Aurora Hickey, PT - 06/23/2015 2:03 PM CST Encounter date: 06/16/2015 Pt : 1955 J[facility] Physical Therapy Progress Note Visit Number: 8 Initial Certification Period: 05/19/2015 to 08/17/15 Referring Provider: Dr. Maria Esther Phan Visit Diagnosis/ICD: Diagnosis ICD-10-CM ICD-9-CM 1. Right-sided low back pain with right-sided sciatica M54.41 724.3 Precautions: none Onset/Referral Date: 05/19/2015 Orders: Evaluate and treat. [facility] Services: Programming RN, Social Work, [...] above OBJ info and- therapeutic ex (CPT 23323)20 min Discussed hip series of stretches to [...] stretch with this, no pain. ultrasound (CPT 52142) 11 min US to right LB for 10 min, 1.3 w/cm2, continuous manual therapy (CPT 65673) 12 min soft tissue mobilization, and use of irrigationist designer tool to T and lumbar parsspinals Timed [...] therapy beyondinitial 6 that are set up TEACHER documented in this encounter Plan of Treatment Not on filedocumented as of this encounter Visit Diagnoses Diagnosis Right-sided low back pain with right-beck ed sciatica (HRC) - Primary documented in this encounter Care Teams Geography Instructor Relationship Specialty Start Date End Date Lurdes Thomas MD PCP - General 06/18/14 12/11/19 documented as of this encounter
--- OUTSIDE RECORDS SUMMARY | 2022-01-26 12:00 | XMS_ITS | Encounter Summary ---
:1955 Author Organization [facility] Address [address] [address] Care Team Providers Name Role Phone Lurdes Thomas MD Primary Care Provider Reason for Visit Reason Comments Spine Lumbar Encounter Details Date Type Department Care Team Description 05/28/2015 Office Visit [place] [facility] Chris Cain, Right -sided low back Therapy Aurora Briggs, PT pain with right-sided [address] granados (Primary Dx) [place] [address] [place], [place] [phone] (Wo rk) Social History Tobacco Use Types Packs/Day Years Used Date Smoking Tobacco: Never Smokeless Tobacco: Never Alcohol Use Standard Drinks/Week Comments Yes 0 (1 standard drink = 0.6 oz pure alcoho l) Sex Assigned at Date Recorded Not on file documented as of this encounter Progress Notes Aurora Hickey, PT - 05/28/2015 12:14 PM CST Encounter date: 05/28/2015 Pt : 1955 [facility] Physical Therapy Progress Note Visit Number: 2 Initial Certification Period: 05/19/2015 to 08/17/15 Referring Provider: Dr. Maria Esther Phan Visit Diagnosis/ICD: Diagnosis ICD-10-CM ICD-9-CM 1. Right-sided low back pain with right-sided sciatica M54.41 724.3 Precautions: none Onset/Referral Date: 05/19/2015 Reason for Referral: -Outpatient PT. Orders: Evaluate and treat. [facility] Services: Programming RN, Social Work, [...] with REIL Treatment/Education Today: therapeutic ex (CPT 44717)15 min time spent with orthopedic assessment manual therapy (CPT 40254) 15 min in prone, general mobilization. In supine, end range rotational thrust to the right, repeated twice, and to the left, with cavitation. Afterwards, no pain with supine to sit, and sit to stand. 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
--- OUTSIDE RECORDS SUMMARY | 2022-01-26 12:00 | XMS_ITS | Encounter Summary ---
:1955 Author Organization [email or web address] Address [address] [address] Care Team Providers Name Role Phone Lurdes Thomas MD Primary Care Provider Encounter Details Date Type Department Care Team Description 02/02/2015 Notes/Orders [facility] [facility] Katalina Laughlin, PT [address] [place] [address] [place], [place] [phone] (Wo rk) Social History Tobacco Use [...] 90 day(s). Katalina Laughlin PT Physical Therapist [place] License # [id number] documented in this encounter Plan of Treatment Not on filedocumented as of this encounter Visit Diagnoses Not on filedocumented in this encounter Care Teams Barn And Property Manager Relationship Specialty Start Date End Date Lurdes Thomas MD PCP - General 06/18/14 12/11/19 documented as of this encounter
--- OUTSIDE RECORDS SUMMARY | 2022-01-26 12:00 | XMS_ITS | Encounter Summary ---
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 Discussed the process in general and [...] on filedocumented in this encounter Care Teams Biomedical Repair Technician Relationship Specialty Start Date End Date Lurdes Thomas MD PCP - General 06/18/14 12/11/19 documented as of this encounter
--- OUTSIDE RECORDS SUMMARY | 2022-01-26 12:00 | XMS_ITS | Encounter Summary ---
:1955 Author Organization [facility] Address [address] [address] Care Team Providers Name Role Phone Lurdes Thomas MD Primary Care Provider Reason for Visit Reason Comments Spine Lumbar Encounter Details Date Type Department Care Team Description 06/08/2015 Office Visit [place] [facility] Chris Cain, Right -sided low back Therapy Aurora Briggs, PT pain with right-sided [address] granados (Primary Dx) [place] [address] [place], [place] [phone] (Wo rk) Social History Tobacco Use Types Packs/Day Years Used Date Smoking Tobacco: Never Smokeless Tobacco: Never Alcohol Use Standard Drinks/Week Comments Yes 0 (1 standard drink = 0.6 oz pure alcoho l) Sex Assigned at Date Recorded Not on file documented as of this encounter Progress Notes Aurora Hickey, PT - 06/23/2015 2:05 PM CST Encounter date: 06/08/2015 Pt : 1955 [facility] Note Visit Number: 6) Initial Certification Period: 05/19/2015 to 08/17/15 Referring Provider: Dr. Maria Esther Phan Visit Diagnosis/ICD: Diagnosis ICD-10-CM ICD-9-CM 1. Right-sided low back pain with right-sided sciatica M54.41 724.3 Precautions: none Onset/Referral Date: 05/19/2015 Orders: Evaluate and treat. [facility] Services: Programming RN, Social Work, [...] above OBJ info and- manual therapy (CPT 05461) 10 min joint mobilization, supine end range thrust technique, right and left, repeated twice therapeutic ex (CPT 80433)25 min hip series of stretches to combine some of the exercises he has been doing added flexion in step standing, left, than right side glide left added single leg raise in hands/knees position, 5 sec hold ultrasound (CPT 79019) 12 min US to right LB for [...] manual therapy, exercise progression, modalities if needed. ER OUT documented in this encounter Plan of Treatment Not on filedocumented as of this encounter Visit Diagnoses Diagnosis Right-sided low back pain with right-beck ed sciatica (HRC) - Primary documented in this encounter Care Teams Health Program Specialist Relationship Specialty Start Date End Date Lurdes Thomas MD PCP - General 06/18/14 12/11/19 documented as of this encounter
--- OUTSIDE RECORDS SUMMARY | 2022-01-26 12:00 | XMS_ITS | Encounter Summary ---
:1955 Author Organization [facility] Address [address] [address] Care Team Providers Name Role Phone Lurdes Thomas MD Primary Care Provider Reason for Visit Reason Comments Spine Lumbar Encounter Details Date Type Department Care Team Description 05/26/2015 Office Visit [place] [facility] Chris Cain, Right -sided low back Therapy Aurora Briggs, PT pain with right-sided [address] granados (Primary Dx) [place] [address] [place], [place] [phone] (Wo rk) Social History Tobacco Use Types Packs/Day Years Used Date Smoking Tobacco: Never Smokeless Tobacco: Never Alcohol Use Standard Drinks/Week Comments Yes 0 (1 standard drink = 0.6 oz pure alcoho l) Sex Assigned at Date Recorded Not on file documented as of this encounter Progress Notes Aurora Hickey, PT - 05/26/2015 10:30 AM CST Encounter date: 05/26/2015 Pt : 1955 [facility] Physical Therapy Progress Note Visit Number: 2 Initial Certification Period: 05/19/2015 to 08/17/15 Referring Provider: Dr. Maria Esther Phan Visit Diagnosis/ICD: Diagnosis ICD-10-CM ICD-9-CM 1. Right-sided low back pain with right-sided sciatica M54.41 724.3 Precautions: none Onset/Referral Date: 05/19/2015 Reason for Referral: -Outpatient PT. Orders: Evaluate and treat. [facility] Services: Programming RN, Social Work, therapy in the past Exacerbation Date: 04/21/2015 Last Referring MD Visit: 05/19/2015 SUBJECTIVE: Andrew is new to me today, initially assessed at [facility], and referred to [facility] location for convenience, and orthopedic care for [...] with REIL Treatment/Education Today: therapeutic ex (CPT 73424)15 min time spent with orthopedic assessment manual therapy (CPT 89598) 15 min in prone, general mobilization. afterwards, (-) prone knee flexion test, but pain with transitional movements In supine, end range rotational thrust to the right, repeated twice, and to the left, with cavitation. Afterwards, no pain with supine to sit, and sit to stand. still is shifted, but no pain therapeutic ex (CPT 29334) 15 min Added for HEP: supine DKTC, [...] can see what will work for him TO SPOTTER documented in this encounter Plan of Treatment Not on filedocumented as of this encounter Visit Diagnoses Diagnosis Right-sided low back pain with right-beck ed sciatica (HRC) - Primary documented in this encounter Care Teams Bell Tier Relationship Specialty Start Date End Date Lurdes Thomas MD PCP - General 06/18/14 12/11/19 documented as of this encounter
--- OUTSIDE RECORDS SUMMARY | 2022-01-26 12:00 | XMS_ITS | Encounter Summary ---
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 Pt's Insurer: Eleazar Insurer's contact #: [phone] Name of Drug: Goocovri 137mg Dx for Drug: dyskinesia due to PD medications Tried/failed drugs: Amantadine Medication was approved. Approval dates: 07/16/17 to 08/15/18 Case#: [id number] FYI documented in this encounter Plan of Treatment Not on filedocumented as of this encounter Visit Diagnoses Not on filedocumented in this encounter Care Teams Merchant Tailor Relationship Specialty Start Date End Date Lurdes Thomas MD PCP - General 06/18/14 12/11/19 documented as of this encounter
--- OUTSIDE RECORDS SUMMARY | 2022-01-26 12:00 | XMS_ITS | Encounter Summary ---
:1955 Author Organization [facility] Address [address], [place] [address] Care Team Providers Name Role Phone Lurdes Thomas MD Primary Care Provider Reason for Referral Specialty Diagnoses / Procedures Referred By Contact Refer red To Contact Maria Esther Phan MD [address] [place], [place] [address] Referral ID Status Reason Start Date Expiration Date Visits Requ ested Visits Authorized RNET SALES ASSOCIATE Reason for Visit Reason Comments Back Pain Encounter Details Date Type Department Care Team Description 05/19/2015 Initial Consult [place] [facility] Jordana Ham ht-sided low back Therapy M, PT pain with right-sided [address] [id number] Social History Tobacco Use Types Packs/Day Years [...] 1955 Physical Therapy Parkinson Evaluation/Plan of Care [facility] Initial Certification Period: 05/19/2015 to 08/17/15 Referring Provider: Dr. Maria Esther Phan Visit Diagnosis/ICD: Diagnosis ICD-10-CM ICD-9-CM 1. Right-sided low back pain with right-sided sciatica M54.41 724.3 Precautions: none Onset/Referral Date: 05/19/2015 Reason for Referral: -Outpatient PT. Orders: Evaluate and treat. [facility] [place] Services: Programming RN, Social Work, therapy in [...] to residence: Stairs to enter. -Living location: [facility] area. 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 Cooperative. Pleasant. [...] discussed therapist's recommendation to follow up at [facility] with orthopedic PT, provided pt with information regarding how to schedule follow up visit at their clinic, contacted [facility] to update them with transfer of pt; [...] clinic closer to home for treatment with specialist icu. Pt to continue at [place] location. Pt would benefit from skilled PT [...] Therapeutic exercise. Ultrasound. Interdisciplinary Referrals: PT at [facility], continue with POC Services Recommended: nothing at [...] 90 day(s). Total Treatment: 45 minutes The solar manufacturer's representative is completed by the therapist and the referring clinician's electronic signature certifies medical necessity for the plan above. Completed by Jordana Ham PT License #: [id number] RNET SALES ASSOCIATE documented in this encounter Plan of Treatment Scheduled Referrals Name Type Priority Associated Diagnoses [facility] Referral Routine Right-sided low back edmond n Ordered: 05/19/2015, with right-sided sciatica Ex keagan: 05/19/2015 documented as of this encounter Visit Diagnoses Diagnosis Right-sided low back pain with right-beck ed sciatica (HRC) documented in this encounter Care Teams Mottler Machine Feeder Relationship Specialty Start Date End Date Lurdes Thomas MD PCP - General 06/18/14 12/11/19 documented as of this encounter
--- OUTSIDE RECORDS SUMMARY | 2022-01-26 12:00 | XMS_ITS | Encounter Summary ---
:1955 Author Organization [facility] Address [address] [address] Care Team Providers Name Role Phone Lurdes Thomas MD Primary Care Provider Reason for Visit Reason Comments Other Encounter Details Date Type Department Care Team Description 12/07/2017 Telephone [place] [facility] Doris Arauz, RN Other [address] corina Lamas [place], [place] [address] Social History Tobacco Use Types Packs/Day Years Used Date Smoking Tobacco: Never Smokeless Tobacco: Never Alcohol Use Standard Drinks/Week Comments Yes 0 (1 standard drink = 0.6 oz pure alcoho l) Sex Assigned at Date Recorded Not on file documented as of this encounter Nursing Notes Doris Arauz, RN - 12/07/2017 2:28 PM CDT Received call from [employer]. They have been trying to call Andrew to schedule shipment of [employer] and unable to reach him. Called and LM for Andrew asking him to call [employer] at [phone]. [employer] will mail a letter also, asking him to call them. documented in this encounter Plan of Treatment Not on filedocumented as of this encounter Visit Diagnoses Not on filedocumented in this encounter Care Teams Patient Safety Officer Relationship Specialty Start Date End Date Lurdes Thomas MD PCP - General 06/18/14 12/11/19 documented as of this encounter
--- OUTSIDE RECORDS SUMMARY | 2022-01-26 12:00 | XMS_ITS | Encounter Summary ---
:1955 Author Organization [facility] Address [address] [address] Care Team Providers Name Role Phone Lurdes Thomas MD Primary Care Provider Reason for Visit Reason Comments Spine Lumbar Encounter Details Date Type Department Care Team Description 06/23/2015 Office Visit [place] [facility] Chris Cain, Right -sided low back Therapy Aurora Briggs, PT pain with right-sided [address] granados (Primary Dx) [place] [address] [place], [place] [phone] (Wo rk) Social History Tobacco Use Types Packs/Day Years Used Date Smoking Tobacco: Never Smokeless Tobacco: Never Alcohol Use Standard Drinks/Week Comments Yes 0 (1 standard drink = 0.6 oz pure alcoho l) Sex Assigned at Date Recorded Not on file documented as of this encounter Progress Notes Aurora Hickey, PT - 06/23/2015 2:00 PM CST Encounter date: 06/23/2015 Pt : 1955 Jasmine [facility] Physical Therapy Progress Note Visit Number: 10 Initial Certification Period: 05/19/2015 to 08/17/15 Referring Provider: Dr. Maria Esther Phan Visit Diagnosis/ICD: Diagnosis ICD-10-CM ICD-9-CM 1. Right-sided low back pain with right-sided sciatica M54.41 724.3 Precautions: none Onset/Referral Date: 05/19/2015 Orders: Evaluate and treat. [place] [facility] Services: Programming RN, Social Work, [...] above OBJ info and- therapeutic ex (CPT 07054)10 min reviewed flexion in step standing, left, than right. He still gets a little glitch on right side - in 1/2 sitting, hip hiking right for QL. He reports feeling an excellent stretch with this, no pain. ultrasound (CPT 98112) 12 min US to right LB for 10 min, 1.3 w/cm2, continuous manual therapy (CPT 45339) 15 min soft tissue mobilization, and use of laundry sorter tool to T and lumbar paraspinals Timed [...] has not contacted his insurance company yet H EXAMINER documented in this encounter Plan of Treatment Not on filedocumented as of this encounter Visit Diagnoses Diagnosis Right-sided low back pain with right-beck ed sciatica (HRC) - Primary documented in this encounter Care Teams Dusting And Brushing Machine Operator Relationship Specialty Start Date End Date Lurdes Tohmas MD PCP - General 06/18/14 12/11/19 documented as of this encounter
--- OUTSIDE RECORDS SUMMARY | 2022-01-26 12:00 | XMS_ITS | Encounter Summary ---
:1955 Author Organization [facility] Address [address], [place] [address] Care Team Providers Name Role Phone Lurdes Thomas MD Primary Care Provider Reason for Visit Reason Comments Spine Lumbar Encounter Details Date Type Department Care Team Description 06/30/2015 Office Visit [place] [facility] Chris Cain, Right -sided low back Therapy Aurora Briggs, PT pain with right-sided [address] granados (Primary Dx) [place] [address] [place], [place] [phone] (Wo rk) Social History Tobacco Use Types Packs/Day Years Used Date Smoking Tobacco: Never Smokeless Tobacco: Never Alcohol Use Standard Drinks/Week Comments Yes 0 (1 standard drink = 0.6 oz pure alcoho l) Sex Assigned at Date Recorded Not on file documented as of this encounter Progress Notes Aurora Hickey, PT - 06/30/2015 11:02 AM CST Encounter date: 06/30/2015 Pt : 1955 Jasmine [facility] Physical Therapy Progress Note Visit Number: 11 Initial Certification Period: 05/19/2015 to 08/17/15 Referring Provider: Dr. Maria Esther Phan Visit Diagnosis/ICD: Diagnosis ICD-10-CM ICD-9-CM 1. Right-sided low back pain with right-sided sciatica M54.41 724.3 Precautions: none Onset/Referral Date: 05/19/2015 Orders: Evaluate and treat. 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
--- OUTSIDE RECORDS SUMMARY | 2022-01-26 12:00 | XMS_ITS | Encounter Summary ---
:1955 Author Organization [employer] Address [address], [place] [address] Care Team Providers Name Role Phone Lurdes Thomas MD Primary Care Provider Encounter Details Date Type Department Care Team Description 05/06/2016 Notes/Orders [place] [facility] P, OTR/L [address] arri[address] [place], [place] [address] [facility] [phone] [place] [address] (Wo rk) Social History Tobacco [...] physician. RODRIGUE Gandhi/Stefan 05/06/2016, 9:56 AM ' ALS WRITER documented in this encounter Plan of Treatment Not on filedocumented as of this encounter Visit Diagnoses Not on filedocumented in this encounter Care Teams Location Worker Relationship Specialty Start Date End Date Lurdes Thomas MD PCP - General 06/18/14 12/11/19 documented as of this encounter
--- OUTSIDE RECORDS SUMMARY | 2022-01-26 12:00 | XMS_ITS | Encounter Summary ---
:1955 Author Organization [facility] Address [address], [place] [address] Care Team Providers Name Role Phone Lurdes Thomas MD Primary Care Provider Reason for Visit Reason Comments Spine Lumbar Encounter Details Date Type Department Care Team Description 07/09/2015 Office Visit [place] [facility] Chris Cain, Right -sided low back Therapy Aurora Briggs, PT pain with right-sided [address] granados (Primary Dx) [place] [address] [place], [place] [phone] (Wo rk) Social History Tobacco Use Types Packs/Day Years Used Date Smoking Tobacco: Never Smokeless Tobacco: Never Alcohol Use Standard Drinks/Week Comments Yes 0 (1 standard drink = 0.6 oz pure alcoho l) Sex Assigned at Date Recorded Not on file documented as of this encounter Progress Notes Aurora Hickey, PT - 07/09/2015 8:51 AM CST Encounter date: 07/09/2015 Pt : 1955 Jasmine [facility] Physical Therapy Progress Note Visit Number: 13 Initial Certification Period: 05/19/2015 to 08/17/15 Referring Provider: Dr. Maria Esther Phan Visit Diagnosis/ICD: Diagnosis ICD-10-CM ICD-9-CM 1. Right-sided low back pain with right-sided sciatica M54.41 724.3 Precautions: none Onset/Referral Date: 05/19/2015 Orders: Evaluate and treat. 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
--- OUTSIDE RECORDS SUMMARY | 2022-01-26 12:00 | XMS_ITS | Encounter Summary ---
:1955 Author Organization [facility] Address [address] [address] Care Team Providers Name Role Phone Lurdes Thomas MD Primary Care Provider Reason for Referral Consult/Transfer Care (Routine) - Closed Specialty Diagnoses / Procedures Referred By Contact Refer red To Contact Diagnoses Parkinson's disease (HRC) Maria Esther Phan MD [address] [place], [place] [address] Referral ID Status Reason Start Date Expiration Date Visits Requ ested Visits Authorized [id number] Closed 08/08/2017 11/07/2018 1 1 Scheduling Instructions Your provider has recommended an appoint ment with [facility]. You may call [phone] or marino bardales [phone] to schedule your appointment. If you do [...] [facility] Maria Esther Phan Parkinson's disease [address] Dae Amaro MD (PSYCHIATRIC) (Primary Dx) Drive [address] [facility] [address] [place], [place] [phone] [address] (Wo rk) Social History Tobacco Use [...] Body Mass Index 24.99 07/08/2014 8:56 AM OUTSIDE MAINTENANCE WORKER documented in this encounter Patient Instructions [...] can assist with med reminders, such as [employer], that allows you to program times and different reminders. documented in this encounter Progress Notes Maria Esther Phan MD - 08/08/2017 12:00 PM CDT NAME: DEIDRE PANG MR#: [id number] CSN: [id number] AUTHENTICATING CLINICIAN: Maria Esther Phan MD CONFIRM #: [id number] LOC: 02685 CLINIC PROGRESS NOTE DATE OF VISIT: 08/08/2017 : 1955 LOCATION: [place]. HISTORY OF PRESENT ILLNESS: Mr. Pang is [...] lower extremities distally.Coordination: No tremor seen today. Nvztuz-vsbo-hbjgor is adequate. There is bumr-qv-jgikkkpm dyskinesia, more so on the left than [...] sooner if necessary. SAP:MEDQ C: CONFIRM #: [id number] documented in this encounter Plan of Treatment Scheduled Referrals Name Type Priority Associated Diagnoses Order S chedule DBS PROGRAMMING CONSULT Referral Routine Parkinson's disea se Ordered: 08/08/2017 (AMB) (HR) documented as of this encounter Visit Diagnoses Diagnosis Parkinson's disease (HRC) - Primary documented in this encounter Care Teams Machine Ii Engraver Relationship Specialty Start Date End Date Lurdes Thomas MD PCP - General 06/18/14 12/11/19 documented as of this encounter
--- OUTSIDE RECORDS SUMMARY | 2022-01-26 12:00 | XMS_ITS | Encounter Summary ---
:1955 Author Organization [facility] Address [address] [address] Care Team Providers Name Role Phone Lurdes Thomas MD Primary Care Provider Reason for Visit Reason Comments Paperwork Gocovri Encounter Details Date Type Department Care Team Description 08/09/2017 Notes/Orders [facility] Doris Arauz, RN [address] corina Lamas [place], [place] [address] Social History Tobacco Use Types Packs/Day Years Used Date Smoking Tobacco: Never Smokeless Tobacco: Never Alcohol Use Standard Drinks/Week Comments Yes 0 (1 standard drink = 0.6 oz pure alcoho l) Sex Assigned at Date Recorded Not on file documented as of this encounter Progress Notes Doris Arauz RN - 08/09/2017 2:43 PM CDT Faxed completed [facility] paperwork and Rx to [employer]. FAX: [phone] documented in this encounter Plan of Treatment Not on filedocumented as of this encounter Visit Diagnoses Not on filedocumented in this encounter Care Teams Forming Yardage Control Operator Relationship Specialty Start Date End Date Lurdes Thomas MD PCP - General 06/18/14 12/11/19 documented as of this encounter
--- OUTSIDE RECORDS SUMMARY | 2022-01-26 12:00 | XMS_ITS | Encounter Summary ---
:1955 Author Organization [employer] Address [address], [place] [address] Care Team Providers Name Role Phone Lurdes Thomas MD Primary Care Provider Reason for Visit Reason Comments No Show Encounter Details Date Type Department Care Team Description 03/03/2015 Telephone [place] [facility] Shawnee Hilario, RN No Show [address] [place], [place] [address] Social History Tobacco Use [...] and leave him a message. I called [phone] and it sounded like someone answered but no voice heard. Iwill try later. documented in this encounter Plan of Treatment Not on filedocumented as of this encounter Visit Diagnoses Not on filedocumented in this encounter Care Teams Business System Consultant Relationship Specialty Start Date End Date Lurdes Thomas MD PCP - General 06/18/14 12/11/19 documented as of this encounter
--- OUTSIDE RECORDS SUMMARY | 2022-01-26 12:00 | XMS_ITS | Encounter Summary ---
:1955 Author Organization [facility] Address [address], [place] [address] Care Team Providers Name Role Phone Lurdes Thomas MD Primary Care Provider Reason for Visit Reason Comments Spine Lumbar Encounter Details Date Type Department Care Team Description 06/04/2015 Office Visit [place] [facility] Chris Cain, Right -sided low back Therapy Aurora Briggs, PT pain with right-sided [address] granados (Primary Dx) [place] [address] [place], [place] [phone] (Wo rk) Social History Tobacco Use Types [...] Onset/Referral Date: 05/19/2015 Orders: Evaluate and treat. [facility] Services: Programming RN, Social Work, [...] above OBJ info and- manual therapy (CPT 16748) 10 min joint mobilization, supine end range thrust technique, right and left, repeated twice therapeutic ex (CPT 81188)25 min added hip series of stretches to combine some of the exercises he has been doing ultrasound (CPT 64806) 10 min US to right LB for [...] manual therapy, exercise progression, modalities if needed. ING PINNER documented in this encounter Plan of Treatment Not on filedocumented as of this encounter Visit Diagnoses Diagnosis Right-sided low back pain with right-beck ed sciatica (HRC) - Primary documented in this encounter Care Teams Hand Tool Filer Relationship Specialty Start Date End Date Lurdes Thomas MD PCP - General 06/18/14 12/11/19 documented as of this encounter
--- OUTSIDE RECORDS SUMMARY | 2022-01-26 12:00 | XMS_ITS | Encounter Summary ---
:1955 Author Organization [facility] Address [address] [place] [address] Care Team Providers Name Role Phone Lurdes Thomas MD Primary Care Provider Reason for Referral Specialty Diagnoses / Procedures Referred By Contact Refer red To Contact Maria Esther Phan MD [address] [place], [place] [address] Referral ID Status Reason Start Date Expiration Date Visits Requ ested Visits Authorized E ENGINEER Reason for Visit Reason Comments Device Check Encounter Details Date Type Department Care Team Description 05/19/2015 Nursing Visit [facility] [facility] Shawnee Hilario, PD (Parkinson's [address] RN disease) [place] [address] Social History Tobacco Use Types [...] implantation. Surgeon:Dr. Gonzalez [facility] date/location: 09/09/24 [place] Battery replacement: None Device type: Activa PC [...] point I readjusted his range on patient robot programmer. Patient robot programmer range Left 2.4-2.8 Right 2.3-2.7 Total face to face programming time: 50 minutes Follow up: 6 months Supervising provider: Dr. Maria Esther Hilario, RN E ENGINEER documented in this encounter Plan of Treatment Scheduled Referrals Name Type Priority Associated Diagnoses Order S chedule DBS PROGRAMMING CONSULT Referral Routine PD (Parkinson's O rdered: 05/19/2015, (AMB) disease) ([facility]) Expires: 04/22 documented as of this encounter Visit Diagnoses Diagnosis PD (Parkinson's disease) ([facility]) Paralysis agitans documented in this encounter Care Teams Over The Horizon Targeting Supervisor Relationship Specialty Start Date End Date Lurdes Thomas MD PCP - General 06/18/14 12/11/19 documented as of this encounter
--- OUTSIDE RECORDS SUMMARY | 2022-01-26 12:00 | XMS_ITS | Encounter Summary ---
:1955 Author Organization [facility] Address [address], [place] [address] Care Team Providers Name Role Phone Lurdes Thomas MD Primary Care Provider Encounter Details Date Type Department Care Team Description 05/05/2016 Notes/Orders [place] [facility], [address] corina MUHAMMAD [place], [place] [address] [address] [phone] [place] [address] (Wo rk) Social History Tobacco [...] treatmentorder should be obtained from the physician. CULTURAL EQUIPMENT OPERATOR documented in this encounter Plan of Treatment Not on filedocumented as of this encounter Visit Diagnoses Not on filedocumented in this encounter Care Teams Polisher Balance Screwhead Relationship Specialty Start Date End Date Lurdes Thomas MD PCP - General 06/18/14 12/11/19 documented as of this encounter
--- OUTSIDE RECORDS SUMMARY | 2022-01-26 12:01 | XMS_ITS | Encounter Summary ---
:1955 Author Organization [facility] Address [address] [place] [address] Care Team Providers Name Role Phone Lurdes Thomas MD Primary Care Provider Encounter Details Date Type Department Care Team Description 09/25/2014 Notes/Orders [facility] Millie Pedraza MD [address] [place], [place] [address] [address] [facility] [id number] (Wo rk) Social History Tobacco Use Types [...] on filedocumented in this encounter Care Teams Outdoor Adventure Leader Relationship Specialty Start Date End Date Lurdes Thomas MD PCP - General 06/18/14 12/11/19 documented as of this encounter
--- OUTSIDE RECORDS SUMMARY | 2022-01-26 12:01 | XMS_ITS | Encounter Summary ---
:1955 Author Organization [facility] Address [address] [address] Care Team Providers Name Role Phone Lurdes Thomas MD Primary Care Provider Reason for Visit Reason Comments Forms Encounter Details Date Type Department Care Team Description 11/12/2014 Telephone [facility] [place] [facility] Doris Arauz, RN Forms [address] [place], [place] [address] Social History Tobacco Use [...] on filedocumented in this encounter Care Teams Cardiac Cath Lab Technologist Relationship Specialty Start Date End Date Lurdes Thomas MD PCP - General 06/18/14 12/11/19 documented as of this encounter
--- OUTSIDE RECORDS SUMMARY | 2022-01-26 12:01 | XMS_ITS | Encounter Summary ---
:1955 Author Organization [employer] Address [address] [address] Care Team Providers Name Role Phone Lurdes Thomas MD Primary Care Provider Reason for Visit Reason Comments Social Service Encounter Details Date Type Department Care Team Description 10/09/2014 Telephone [facility] Fabi Quinones LISW Social Service [address] [place], [place] [address] Social History Tobacco Use [...] with PD and a well-known clinic in [place]. Natasha stated she had time today to call and inquire about insurance and get an appointment set. She was appreciative of the resources and support from Dr Phan. documented in this encounter Plan of Treatment Not on filedocumented as of this encounter Visit Diagnoses Not on filedocumented in this encounter Care Teams Citrus Fruit Colorer Relationship Specialty Start Date End Date Lurdes Thomas MD PCP - General 06/18/14 12/11/19 documented as of this encounter
--- OUTSIDE RECORDS SUMMARY | 2022-01-26 12:01 | XMS_ITS | Encounter Summary ---
:1955 Author Organization [facility] Address [address] [place] [address] Care Team Providers Name Role Phone Lurdes Thomas MD Primary Care Provider Reason for Referral Specialty Diagnoses / Procedures Referred By Contact Refer red To Contact Maria Esther Phan MD [address] [place], [place] [address] Referral ID Status Reason Start Date Expiration Date Visits Requ ested Visits Authorized Reason for Visit Reason Comments Device Check Encounter Details Date Type Department Care Team Description 12/09/2014 Nursing Visit [facility] Doris Arauz, PD (Parkinson's disease) (Pr imary Dx); [address] [place] [address] Social History Tobacco Use Types [...] implantation. Surgeon: Dr. Gonzalez Rowland Surgery date/location: [facility] 09/09/14 Battery replacement: None Device type: Activia [...] Amp: 2.5, PW: 60, Rate: 150. Pt server programmer range: 2.1-2.7 Right SNT: 9 Negative, 10 Positive, Amp: 2.4, PW: 60, Rate: 150. Pt server programmer range: 2.0-2.6 Total face to face [...] documented in this encounter Care Teams Clinical Program Director Relationship Specialty Start Date End Date Lurdes Thomas MD PCP - General 06/18/14 12/11/19 documented as of this encounter
--- OUTSIDE RECORDS SUMMARY | 2022-01-26 12:01 | XMS_ITS | Encounter Summary ---
:1955 Author Organization [employer] Address [address], [place] [address] Care Team Providers Name Role Phone Lurdes Thomas MD Primary Care Provider Reason for Visit Reason Comments Post-Op Follow Up Call Encounter Details Date Type Department Care Team Description 09/23/2014 Telephone [facility] Shawnee Hilario RN Post-Op Follow Up Call [address] [place] [phone] Social History Tobacco Use Types Packs/Day [...] on filedocumented in this encounter Care Teams Oracle Ebs Consultant Relationship Specialty Start Date End Date Lurdes Thomas MD PCP - General 06/18/14 12/11/19 documented as of this encounter
--- OUTSIDE RECORDS SUMMARY | 2022-01-26 12:01 | XMS_ITS | Encounter Summary ---
:1955 Author Organization [facility] Address [address] [place] [address] Care Team Providers Name Role Phone Lurdes Thomas MD Primary Care Provider Reason for Referral Specialty Diagnoses / Procedures Referred By Contact Refer red To Contact Maria Esther Phan MD [address] [place], [place] [address] Referral ID Status Reason Start Date Expiration Date Visits Requ ested Visits Authorized Reason for Visit Reason Comments Device Check Encounter Details Date Type Department Care Team Description 11/12/2014 Nursing Visit [facility] Doris Arauz, [place] [address] corina BERRY [place], [place] [address] Social History Tobacco Use [...] implantation. Surgeon: Dr. Gonzalez Rowland Surgery date/location: [facility], 09/09/14 Battery replacement: None Device type: [...] check. Therapy impedence: 1410 on 1.579. Pt drupal programmer range: 2.1-2.7 R STN: 10 Positive, 9 Negative, Amp: 2.1, PW: 60, Rate: 150. No problems found on 1.5v impedence check. Therapy impedence: 1149 on 1.831. Pt drupal programmer range: 1.7-2.5 Final settings: No changes [...] documented in this encounter Care Teams Supervisor Press Room Relationship Specialty Start Date End Date Lurdes Thomas MD PCP - General 06/18/14 12/11/19 documented as of this encounter
--- OUTSIDE RECORDS SUMMARY | 2022-01-26 12:01 | XMS_ITS | Encounter Summary ---
:1955 Author Organization [facility] Address [address] [address] Care Team Providers Name Role Phone Lurdes Thomas MD Primary Care Provider Encounter Details Date Type Department Care Team Description 10/06/2014 Notes/Orders [facility] Shawnee Hilario, Paralysis agitans [address] RN (Primary D x) [place] [address] Social History Tobacco Use Types [...] documented in this encounter Care Teams Manager Enterprise Content Management Relationship Specialty Start Date End Date Lurdes Thomas MD PCP - General 06/18/14 12/11/19 documented as of this encounter
--- OUTSIDE RECORDS SUMMARY | 2022-01-26 12:01 | XMS_ITS | Encounter Summary ---
:1955 Author Organization [employer] Address [address], [place] [address] Care Team Providers Name Role Phone Lurdes Thomas MD Primary Care Provider Reason for Visit Reason Comments Sleep problems Encounter Details Date Type Department Care Team Description 11/12/2014 Telephone [facility] Doris Arauz, RN Sleep problems [address] [place], [place] [address] Social History Tobacco Use [...] on filedocumented in this encounter Care Teams Deaf/Hard Of Hearing Specialist Relationship Specialty Start Date End Date Lurdes Thomas MD PCP - General 06/18/14 12/11/19 documented as of this encounter
--- OUTSIDE RECORDS SUMMARY | 2022-01-26 12:01 | XMS_ITS | Encounter Summary ---
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 2. I will have our social services analyst, Fabi Beverly contact you and your as [...] agitans documented in this encounter Care Teams Grocery Clerk Selling Relationship Specialty Start Date End Date Lurdes Thomas MD PCP - General 06/18/14 12/11/19 documented as of this encounter
--- OUTSIDE RECORDS SUMMARY | 2022-01-26 12:01 | XMS_ITS | Encounter Summary ---
:[address] [facility] Address [address] [address] Care Team Providers Name Role Phone Lurdes Thomas MD Primary Care Provider Encounter Details Date Type Department Care Team Description 10/14/2014 Notes/Orders [facility] Shawnee Hilario, Paralysis agitans [address] RN (Primary D x) [place] [address] Social History Tobacco Use Types [...] agitans documented in this encounter Care Teams Psych Np Relationship Specialty Start Date End Date Lurdes Thomas MD PCP - General 06/18/14 12/11/19 documented as of this encounter
--- OUTSIDE RECORDS SUMMARY | 2022-01-26 12:01 | XMS_ITS | Encounter Summary ---
:1955 Author Organization [facility] Address [address] [place] [address] Care Team Providers Name Role Phone Lurdes Thomas MD Primary Care Provider Reason for Referral Specialty Diagnoses / Procedures Referred By Contact Refer red To Contact Maria Esther Phan MD [address] [place], [place] [address] Referral ID Status Reason Start Date Expiration Date Visits Requ ested Visits Authorized Reason for Visit Reason Comments VOICE, LOSS OF Encounter Details Date Type Department Care Team Description 11/04/2014 Initial Consult [facility] [facility] Casi De La Rosa (Primary Dx); Therapy J, SAUSAGE STUFFER Dysphonia; [address] [place], [place] [address] [phone] Social History Tobacco Use Types Packs/Day Years Used Date Smoking Tobacco: Never Smokeless Tobacco: Never Alcohol Use Standard Drinks/Week Comments Yes 0 (1 standard drink = 0.6 oz pure alcoho l) Sex Assigned at Date Recorded Not on file documented as of this encounter Progress Notes Casi De La Rosa, SAUSAGE STUFFER - 11/04/2014 4:56 PM CDT Encounter Date: 11/04/2014 Patient : 1955 Speech Therapy - Parkinson's Disease Evaluation and Plan of Care [facility] Multidisciplinary Assessment Outpatient Evaluation [...] feels it is slightly worse. 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 He is on the phone a lot [...] Any liquids. Previous Speech Therapy: Received at [facility] [place]. Evaluation 08/23/07 - WFL. Evaluation 06/18/14 with recommendation for treatment. He did not follow up then. Is ready to pursue treatmentnow. Hand Dominance: Right Hearing Acuity: Within Functional Limits. Glasses: Reading glasses. Education: High school. Employment: part time. 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 Marital Status: . Living Environment: [...] on his own. Recommendations: Individual speech therapy. Can Crimper Speech Goal: Client will be able to [...] achieve intelligible loudness. Goals Achieved Today at [facility] [place]: -Client and/or family verbalized comprehension of today's [...] family in agreement with care plan. The behavioral health rn is completed by the therapist, and the referring clinician's electronic signature certifies medical necessity for the plan above. documented in this encounter Plan of Treatment Scheduled Referrals Name Type Priority Associated Diagnoses Order S [facility] Speech Therapy Referral Routine Paralysis agitans (HRC) Or dered: 11/04/2014, Expires: 2014 documented as of this encounter Visit Diagnoses Diagnosis Paralysis agitans (HRC) - Primary Paralysis agitans Dysphonia Dysarthria documented in this encounter Care Teams Casting Coordinator Relationship Specialty Start Date End Date Lurdes Thomas MD PCP - General 06/18/14 12/11/19 documented as of this encounter
--- OUTSIDE RECORDS SUMMARY | 2022-01-26 12:01 | XMS_ITS | Encounter Summary ---
:1955 Author Organization [employer] Address [address] [place] [address] Care Team Providers Name Role Phone Lurdes Thomas MD Primary Care Provider Reason for Visit Reason Comments Medication Questions Encounter Details Date Type Department Care Team Description 12/08/2014 Telephone [place] [facility] Sheri Pearson, Medication Questions [address] corina BERRY [place], [place] [address] Social History Tobacco Use [...] on filedocumented in this encounter Care Teams Public Housing Interviewer Relationship Specialty Start Date End Date Lurdes Thomas MD PCP - General 06/18/14 12/11/19 documented as of this encounter
--- OUTSIDE RECORDS SUMMARY | 2022-01-26 12:01 | XMS_ITS | Encounter Summary ---
:1955 Author Organization [employer] Address [address] [place] [address] Care Team Providers Name Role Phone Lurdes Thomas MD Primary Care Provider Reason for Visit Reason Comments Questions Encounter Details Date Type Department Care Team Description 11/28/2014 Telephone [facility] Doris rAauz RN Questions [address] [place], [place] [address] Social History Tobacco Use [...] on filedocumented in this encounter Care Teams Cath Lab Manager Relationship Specialty Start Date End Date Lurdes Thomas MD PCP - General 06/18/14 12/11/19 documented as of this encounter
--- OUTSIDE RECORDS SUMMARY | 2022-01-26 12:01 | XMS_ITS | Encounter Summary ---
:1955 Author Organization [facility] Address [address] [place] [address] Care Team Providers Name Role Phone Lurdes Thomas MD Primary Care Provider Reason for Referral Specialty Diagnoses / Procedures Referred By Contact Refer [place] [address] [place], [place] [address] Referral ID Status Reason Start Date Expiration Date Visits Requ ested Visits Authorized Reason for Visit Reason Comments Device Check Encounter Details Date Type Department Care Team Description 10/14/2014 Nursing Visit [facility] Shawnee Hilario, RN [place] [address] [place], [place] [address] Social History Tobacco Use [...] DBS implantation. Surgeon:Dr. Gonzalez Rowland Surgery date/location: [facility] 09/09/2014 Battery replacement: None Device type: [...] 2.2V PW 60 Rate 150 Range on sql programmer analyst 2.1-2.7 Right STN 9 negative 10 positive 2.1V PW 60 Rate 150 Range on sql programmer analyst 1.8-2.6 If he wants to [...] agitans documented in this encounter Care Teams Systems Mechanic Relationship Specialty Start Date End Date Lurdes Thomas MD PCP - General 06/18/14 12/11/19 documented as of this encounter
--- OUTSIDE RECORDS SUMMARY | 2022-01-26 12:01 | XMS_ITS | Encounter Summary ---
:1955 Author Organization [employer] Address [address], [place] [address] Care Team Providers Name Role Phone Lurdes Thomas MD Primary Care Provider Encounter Details Date Type Department Care Team Description 09/23/2014 Notes/Orders [facility] Jordana Ham, PT [address] [place] [address] [place] [address] [place] [address] [phone] (Wo rk) Social History Tobacco Use Types [...] on filedocumented in this encounter Care Teams Agriculture Internship Relationship Specialty Start Date End Date Lurdes Thomas MD PCP - General 06/18/14 12/11/19 documented as of this encounter
--- OUTSIDE RECORDS SUMMARY | 2022-01-26 12:01 | XMS_ITS | Encounter Summary ---
:1955 Author Organization [facility] Address [address] [place] [address] Care Team Providers Name Role Phone Lurdes Thomas MD Primary Care Provider Reason for Referral Specialty Diagnoses / Procedures Referred By Contact Refer red To Contact Maria Esther Phan MD [address] [place], [place] [address] Referral ID Status Reason Start Date Expiration Date Visits Requ ested Visits Authorized Reason for Visit Reason Comments Adl Problem Encounter Details Date Type Department Care Team Description 11/04/2014 Initial Consult Darrin Moore-d efined conditions(799.89) (Primary Dx); Occupational Therapy Tylor Bates, OTR/L Paralysis agitans [address] [phone] Social History Tobacco Use Types Packs/Day Years Used Date Smoking Tobacco: Never Smokeless Tobacco: Never Alcohol Use Standard Drinks/Week Comments Yes 0 (1 standard drink = 0.6 oz pure alcoho l) Sex Assigned at Date Recorded Not on file documented as of this encounter Progress Notes Tylor Marr, OTR/L - 11/08/2014 1:51 PM CDT Encounter Date: 11/04/2014 Pt. : 1955 [facility] Occupational Therapy - Evaluation/Plan of Care Initial Certification Period: 11/04/2014 to 01/03/15 Referring Provider: Dr. Maria Esther Phan Referring Diagnosis: Parkinson's Disease Visit Diagnosis/IDC Code: Diagnosis (ICD9) ICD-9-CM ICD-10-CM 1. Other ill-defined conditions(799.89) 799.89 R69 2. Paralysis agitans ([facility]) 332.0 G20 Precautions: recent DBS surgery Orders: [...] DBS(09/2014). Previous Occupational Therapy: Received at [facility]. Pain: Location: back pain when getting up rom chairs , gettign up from bed, getting in/out of car. Education: High school. 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 Living Environment: Private home, more than 1 level. Living Location: [facility]. Driving: Yes. Community Mobility: Independent community ambulation-unrestricted. [...] limits. -Right upper extremity: within normal limits. -Contract Preparer: Left - 127 lbs=99%; Right -128 lbs.=99% [...] did undergo successful DBS surgery. 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 H e presents to address continuing difficulty [...] Achievement or Learning: Distance from clinic. 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 Prognosis: Excellent for established goals. PLAN Planned [...] exercise program. Procedures: Occupation Therapy Evaluation (CPT 65314): 30 minutes ADL/Self management (CPT 32562): 15 minutes Therapeutic Exercise (CPT 48560): 15 minutes Total Treatment Time: 60 minutes. The wash worker is completed by the therapist and the referring clinician's electronic signature certifies medical necessity for the plan above. Tylor Marr OTR/L Lic#[id number] documented in this encounter Plan of Treatment Scheduled Referrals Name Type Priority Associated Diagnoses Order S [facility] Occupational Therapy Referral Routine Paralysis agitans (H [facility]) Ordered: 11/04/2014, Expires: 2014 documented as of this encounter Visit Diagnoses Diagnosis Other ill-defined conditions(799.89) - P rimary Other ill-defined conditions Paralysis agitans (HRC) Paralysis agitans documented in this encounter Care Teams Military Nurse Relationship Specialty Start Date End Date Lurdes Thomas MD PCP - General 06/18/14 12/11/19 documented as of this encounter
--- OUTSIDE RECORDS SUMMARY | 2022-01-26 12:01 | XMS_ITS | Encounter Summary ---
:1955 Author Organization [employer] Address [address], [place] [address] Care Team Providers Name Role Phone Lurdes Thomas MD Primary Care Provider Encounter Details Date Type Department Care Team Description 10/22/2014 Notes/Orders [facility] 3931 Zhanna Pedraza MD Neurology 3931 [facility] 3931 [facility] [address] [place] [address] [phone] Social History Tobacco Use Types Packs/Day Years [...] on filedocumented in this encounter Care Teams Purchasing/Receiving Relationship Specialty Start Date End Date Lurdes Thomas MD PCP - General 06/18/14 12/11/19 documented as of this encounter
--- OUTSIDE RECORDS SUMMARY | 2022-01-26 12:01 | XMS_ITS | Encounter Summary ---
:1955 Author Organization [email or web address] Address [address], [place] [address] Care Team Providers Name Role Phone Lurdes Thomas MD Primary Care Provider Reason for Visit Reason Comments Back Pain Encounter Details Date Type Department Care Team Description 12/02/2014 Telephone [facility] Katalina Laughlin, PT Back Pain [address] [place] [address] [place], [place] [address] [place], [place] [phone] (Wo rk) Social History Tobacco Use [...] schedule. Offered to transfer his care to [facility], which he prefers to do. Suggested scheduling PT visit there as soon as possible. Will send email to PT at [place] to coordinate care. Katalina Laughlin PT Physical Therapist [place] License # [id number] documented in this encounter Plan of Treatment Not on filedocumented as of this encounter Visit Diagnoses Not on filedocumented in this encounter Care Teams Presser And Shaper Knitted Goods Relationship Specialty Start Date End Date Lurdes Thomas MD PCP - General 06/18/14 12/11/19 documented as of this encounter
--- OUTSIDE RECORDS SUMMARY | 2022-01-26 12:01 | XMS_ITS | Encounter Summary ---
:1955 Author Organization [employer] Address [address] [place] [address] Care Team Providers Name Role Phone Lurdes Thomas MD Primary Care Provider Reason for Referral Specialty Diagnoses / Procedures Referred By Contact Refer red To Contact Maria Esther Phan MD [address] [place], [place] [address] Referral ID Status Reason Start Date Expiration Date Visits Requ ested Visits Authorized Reason for Visit Reason Comments Balance/gait Dysfunction Encounter Details Date Type Department Care Team Description 11/04/2014 Initial Consult [place] [facility] Katalina Laughlin normality of gait (Primary Dx); Therapy L, PT Paralysis agitans; [address] [place] [address] [facility] [place] [address] [phone] Social History Tobacco Use Types Packs/Day Years [...] 1955 Physical Therapy Parkinson Evaluation/Plan of Care [facility] Initial Certification Period: 11/04/2014 to 02/02/15 Referring Provider: Dr. Maria Esther Phan Visit Diagnosis/ICD: Diagnosis (ICD9) ICD-9-CM ICD-10-CM 1. Abnormality of gait 781.2 R26.9 2. Paralysis agitans (HCC) 332.0 G20 3. Personal history of fall V15.88 Z91.81 Precautions: Fall precautions, DBS Onset/Referral Date: 10/14/14 Reason for Referral: Outpatient PT. Orders: Evaluate and treat. On License Of [facility] [place] Services: Occupational therapy. Speech therapy. Exacerbation Date: [...] to residence: Stairs to enter. -[facility] -Living environment: Urban-mostly paved areas [...] Clear. Rapid speech, occasional stuttering. 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 Did recently travel to [place] on business, however. OBJECTIVE Blood Pressure: Symptoms: [...] Goal Achievement: Distance from center (lives in [place]) Rehab Prognosis: Good PLAN Planned Treatment: ADL/Home [...] 90 day(s). Total Treatment: 60 minutes The armored car guard is completed by the therapist and the referring clinician's electronic signature certifies medical necessity for the plan above. Katalina Laughlin PT Physical Therapist [place] License # [id number] documented in this encounter Plan of Treatment Scheduled Referrals Name Type Priority Associated Diagnoses Order S [facility] Physical Therapy Referral Routine Paralysis agitans (HRC) Ordered: 11/04/2014, Expires: 2014 documented as of this encounter Visit Diagnoses Diagnosis Abnormality of gait - Primary Paralysis agitans (HRC) Paralysis agitans Personal history of fall documented in this encounter Care Teams Juvenile Court Judge Relationship Specialty Start Date End Date Lurdes Thomas MD PCP - General 06/18/14 12/11/19 documented as of this encounter
--- OUTSIDE RECORDS SUMMARY | 2022-01-26 12:01 | XMS_ITS | Encounter Summary ---
:1955 Author Organization [facility] Address [address] [place] [address] Care Team Providers Name Role Phone Lurdes Thomas MD Primary Care Provider Reason for Referral Specialty Diagnoses / Procedures Referred By Contact Refer red To Contact Maria Esther Phan MD [address] [place], [place] [address] Referral ID Status Reason Start Date Expiration Date Visits Requ ested Visits Authorized Reason for Visit Reason Comments Device Check Encounter Details Date Type Department Care Team Description 10/07/2014 Nursing Visit [facility] Shawnee Hilario, RN [place] [address] ar[place] [place], [place] [address] Social History Tobacco Use [...] Dr. Gonzalez Rowland Surgery date/location: September 09 [facility] Device type: Activa PC Indication:Parkinsons Update [...] 150 therapy impedence 1159 current 1.816 Patient Cow Tester Range: Left 2.1-2.7 Right 1.7-2.5. Total face [...] agitans documented in this encounter Care Teams Certified Nursing Assistant Instructor Relationship Specialty Start Date End Date Lurdes Thomas MD PCP - General 06/18/14 12/11/19 documented as of this encounter
--- OUTSIDE RECORDS SUMMARY | 2022-01-26 12:01 | XMS_ITS | Encounter Summary ---
:1955 Author Organization [email or web address] Address [address], [place] [address] Care Team Providers Name Role Phone Lurdes Thomas MD Primary Care Provider Reason for Visit Reason Comments Sleep problems Back Pain Questions Encounter Details Date Type Department Care Team Description 12/02/2014 Office Visit [facility] Parashos, Maria Esther Paralysis agitans [address] [place] A, MD (Primary Dx) Drive 39[address] [facility] [address] [place], [place] [phone] (Wo rk) Social History Tobacco Use Types [...] Body Mass Index 27.73 07/08/2014 8:56 AM BOX LINING MACHINE OPERATOR documented in this encounter Patient Instructions Patient InstructionsMaria Esther Phan MD - 12/02/2014 3:43 PM CDT Please call the [facility] nurse line for any questions, [...] agitans documented in this encounter Care Teams Rod Puller And Coiler Relationship Specialty Start Date End Date Lurdes Thomas MD PCP - General 06/18/14 12/11/19 documented as of this encounter
--- OUTSIDE RECORDS SUMMARY | 2022-01-26 12:02 | XMS_ITS | Encounter Summary ---
:1955 Author Organization [employer] Address [address] [place] [address] Care Team Providers Name Role Phone Lurdes Thomas MD Primary Care Provider Reason for Visit Reason Comments Paperwork Encounter Details Date Type Department Care Team Description 09/15/2014 Telephone [facility] Doris Arauz, RN Paperwork [address] [place], [place] [address] Social History Tobacco Use Types [...] Doris from Dr. Phan office at [facility] called to request ON/OFF results be sent [...] on filedocumented in this encounter Care Teams Moving Picture Producer Relationship Specialty Start Date End Date Lurdes Thomas MD PCP - General 06/18/14 12/11/19 documented as of this encounter
--- OUTSIDE RECORDS SUMMARY | 2022-01-26 12:02 | XMS_ITS | Encounter Summary ---
:1955 Author Organization [facility] Address [address] [place] [address] Care Team Providers Name Role Phone Lurdes Thomas MD Primary Care Provider Reason for Referral Specialty Diagnoses / Procedures Referred By Contact Refer red To Contact Maria Esther Phan MD [address] [place], [place] [address] Referral ID Status Reason Start Date Expiration Date Visits Requ ested Visits Authorized ION OPERATOR Reason for Visit Reason Comments CONSULT Encounter Details Date Type Department Care Team Description 06/18/2014 Nursing Visit [facility] Doris Arauz, PD (Parkinson's disease) (Pr imary Dx); [address] [place], [place] [id number] Social History Tobacco Use Types Packs/Day Years Used Date Smoking Tobacco: Never Smokeless Tobacco: Never Alcohol Use Standard Drinks/Week Comments Yes 0 (1 standard drink = 0.6 oz pure alcoho l) Sex Assigned at Date Recorded Not on file documented as of this encounter Progress Notes Doris Arauz RN - 06/18/2014 5:16 PM CST Andrew came to [facility] for DBS TAC with his . States [...] CR: 900mg MoCA: Midi: 0 Vargas: 15 ION OPERATOR documented in this encounter Plan of Treatment Scheduled Referrals Name Type Priority Associated Diagnoses Order S angélica [facility] Referral Routine Paralysis agitans (HRC) Ordered: 06/20/2014, CONSULT (AMB) Expires: 06/20 documented as of this encounter Visit Diagnoses Diagnosis PD (Parkinson's disease) (HRC) - Primary Paralysis agitans Paralysis agitans (HRC) Paralysis agitans documented in this encounter Care Teams Waiter/Waitress Room Service Relationship Specialty Start Date End Date Lrudes Thomas MD PCP - General 06/18/14 12/11/19 documented as of this encounter
--- OUTSIDE RECORDS SUMMARY | 2022-01-26 12:02 | XMS_ITS | Encounter Summary ---
:1955 Author Organization [facility] Address [address], [place] [address] Care Team Providers Name Role Phone Lurdes Thomas MD Primary Care Provider Reason for Referral Specialty Diagnoses / Procedures Referred By Contact Refer red To Contact Maria Esther Phan MD [address] [place], [place] [address] Referral ID Status Reason Start Date Expiration Date Visits Requ ested Visits Authorized UNT DEVELOPMENT MANAGER Reason for Visit Reason Comments Balance/gait Dysfunction Encounter Details Date Type Department Care Team Description 06/18/2014 Initial Consult [facility] Jordana Ham (Primary Dx); Therapy M, PT Abnormality of gait; [address] [place] [phone] Social History Tobacco Use Types Packs/Day Years [...] 1955 Physical Therapy Parkinson Evaluation/Plan of Care [facility] Initial Certification Period: 06/18/2014 to 09/16/14 Referring Provider: Dr. Maria Esther Phan Visit Diagnosis/ICD: Diagnosis (ICD9) ICD-9-CM 1. Paralysis agitans (HCC) 332.0 2. Abnormality of gait 781.2 3. Risk for falls V15.88 Precautions: No precautions Onset/Referral Date: 06/18/2014 Reason for Referral: -Pre-Deep Brain Stimulation (Physical Therapist, Occupational Therapist, Speech and Language Pathologist, Foundation Digger, Registered Nurse). Orders: Evaluate and treat. [facility] [place] Services: None. Exacerbation Date: 05/22/2014 Last Referring [...] to residence: Stairs to enter. -Living location: [facility] area. -Living environment: Urban-mostly paved areas to [...] in winter. Communication: Clear. Low volume. 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 Total Treatment: 60 minutes The apartment maintenance worker is completed by the therapist and [...] Name Type Priority Associated Diagnoses Order S [facility] Physical Therapy Referral Routine Paralysis agitans (HRC) Ordered: 06/20/2014, Expires: 2014 documented as of this encounter Visit Diagnoses Diagnosis Paralysis agitans (HRC) - Primary Paralysis agitans Abnormality of gait Risk for falls Personal history of fall documented in this encounter Care Teams Import/Export Analyst Relationship Specialty Start Date End Date Lurdes Thomas MD PCP - General 06/18/14 12/11/19 documented as of this encounter
--- OUTSIDE RECORDS SUMMARY | 2022-01-26 12:02 | XMS_ITS | Encounter Summary ---
:1955 Author Organization [facility] Address [address] [address] Care Team Providers Name Role Phone No Primary/Referring, Phy Primary Care Provider Unavailable Reason for Visit Reason Comments Questions Encounter Details Date Type Department Care Team Description 06/06/2014 Telephone [facility] Doris Arauz, RN Questions [address] [place], [place] [address] Social History Tobacco Use [...] Andrew called asking for number of [employer] Appliance Sales Associate. Emailed our reps and Lyric stated it was okay to give him her number: [phone] Called Andrew and gave him her number. NEERING SUPPLIES SALES documented in this encounter Plan of Treatment Not on filedocumented as of this encounter Visit Diagnoses Not on filedocumented in this encounter Care Teams Cellophane Tester Relationship Specialty Start Date End Date No Primary/Referring, Lupilloy PCP - General 01/22/14 documented as of this encounter
--- OUTSIDE RECORDS SUMMARY | 2022-01-26 12:02 | XMS_ITS | Encounter Summary ---
:1955 Author Organization [employer] Address [address] [place] [address] Care Team Providers Name Role Phone No Primary/Referring, Phy Primary Care Provider Unavailable Reason for Visit Reason Comments Establish Care MEDICATION CHECK Encounter Details Date Type Department Care Team Description 01/28/2014 Office Visit Kiara Zepeda Hyperlipide cierra (Primary Dx); Rober Aviles MD Parkinson's disease; [address] [facility] [address] [place] [address] Screening for diabetes mellitus; [place] [address] [place] [address] Screening for prostate cancer; [phone] Special screeni ng for malignant neoplasms, colon; [...] go directly to the clinic???s lab to picking table worker your test kit. There will be specific [...] COLLECTION KIT PREP (01/28/2014 9:30 AM CDT) [facility] gist Method Time Signature FIT Kit Prep Collection Kit [facility] Given to LABORATORIES Patient Specimen Anatomical Collection Method Collection Time Receive d Time (Source) Location / / Volume Laterality 01/28/2014 9:30 AM 4 9:31 CDT AM CDT Narrative [facility] - 02/04/2014 8:08 AM C DT Performed at [facility], [facility], [place] [address] Kiara Cristina MD LAB_1 Performing Organization Address City/State/ZIP Code Phon e Number [facility] [phone] PROSTATIC SPECIFIC ANTIGEN(SCREEN) (V76.44) (01/28/2014 9:30 AM CDT) P athologist Signature Prostatic Spec 0.97 0.00 - [facility] Ag 4.00 ng/ml LABORATORIES Specimen Anatomical Collection Method Collection Time Receive d Time (Source) Location / / Volume Laterality 01/28/2014 9:30 AM 4 9:31 CDT AM CDT Narrative [facility] - 01/28/2014 7:22 PM C DT Performed at [facility], [address] [place] [id number] Kiara Cristina MD LAB_1 Performing Organization Address City/[facility]/ZIP Code Phon e Number [facility] [phone] (ABNORMAL) VITAMIN D 25-HYDROXY, TOTAL (V77.99) (01/28/2014 9:30 AM CDT) [facility] gist Method Time Signature Vitamin 14.8 [...] 01/28/2014 9:27 PM C DT Performed at [facility] , [address] [place] [address] Kiara Cristina MD LAB_1 Performing Organization Address City/State/ZIP Code Phon e Number [facility] [phone] LIVER PANEL(HEPATIC FUNCTION PANEL) (01/28/2014 9:30 AM CDT) [facility] Method Time Signature Alkaline 89 38 - [...] C DT Performed at [facility], [address] [place] [phone] Kiara Cristina MD LAB_1 Performing Organization Address City/[facility] Phon e Number [facility] [phone] HGB A1C (01/28/2014 9:30 AM CDT) athologist Signature Hgb A1c 5.9 4.3 - 6.1 % [facility] Specimen Anatomical Collection Method Collection Time Receive d Time (Source) Location / / Volume Laterality 01/28/2014 9:30 AM 4 9:31 CDT AM CDT Narrative [facility] - 01/29/2014 9:55 AM C DT Performed at [facility], [address] [place] [address] Kiara Cristina MD LAB_1 Performing Organization Address City/[facility] Phon e Number [facility] [phone] (ABNORMAL) LIPID PANEL AND DIRECT LDL(IF NEEDED) (01/28/2014 9:30 AM CDT) Component Value Ref Test Analysis Performed At [facility] Range Method Time Signature Hours Fasting Information [...] C DT Performed at [facility], [address] [place] [address] Kiara Cristina MD LAB_1 Performing Organization Address City/State/ZIP Code Phon e Number [facility] [phone] documented in this encounter Visit Diagnoses Diagnosis Hyperlipidemia (HRC) - Primary Other and unspecified hyperlipidemia Parkinson's disease (HRC) Screening for diabetes mellitus Screening for prostate cancer Special screening for malignant neoplasm of prostate Special screening for malignant neoplasm s, colon Preventative health care Routine general medical examination at a health care facility documented in this encounter Care Teams Program Professional Relationship Specialty Start Date End Date No Primary/Referring, Phy PCP - General 01/22/14 documented as of this encounter
--- OUTSIDE RECORDS SUMMARY | 2022-01-26 12:02 | XMS_ITS | Encounter Summary ---
:1955 Author Organization [facility] Address [address], [place] [address] Care Team Providers Name Role Phone Lurdes Thomas MD Primary Care Provider Encounter Details Date Type Department Care Team Description 08/20/2014 Notes/Orders [facility] Millie Pedraza MD [address] [place], [place] [address] [address] [facility] N [address] (Wo rk) Social History Tobacco Use Types [...] on filedocumented in this encounter Care Teams Precision Crop Manager Relationship Specialty Start Date End Date Lurdes Thomas MD PCP - General 06/18/14 12/11/19 documented as of this encounter
--- OUTSIDE RECORDS SUMMARY | 2022-01-26 12:02 | XMS_ITS | Encounter Summary ---
:1955 Author Organization [facility] Address [address] [place] [address] Care Team Providers Name Role Phone Lurdes Thomas MD Primary Care Provider Reason for Referral Specialty Diagnoses / Procedures Referred By Contact Refer red To Contact Maria Esther Phan MD [address] [place], [place] [address] Referral ID Status Reason Start Date Expiration Date Visits Requ ested Visits Authorized ELER HEAD Reason for Visit Reason Comments Adl Problem Encounter Details Date Type Department Care Team Description 06/18/2014 Initial Consult Angela Moore (Primary Dx); Occupational Therapy Tylor Bates OTR/L Other ill-defined conditions(799.89) [address] [employer] [address] [place] [id number] Social History Tobacco Use Types Packs/Day Years Used Date Smoking Tobacco: Never Smokeless Tobacco: Never Alcohol Use Standard Drinks/Week Comments Yes 0 (1 standard drink = 0.6 oz pure alcoho l) Sex Assigned at Date Recorded Not on file documented as of this encounter Progress Notes Tylor Marr OTR/Stefan - 06/18/2014 4:45 PM CST Encounter Date: 06/18/2014 Pt. : 1955 [place] [facility] Occupational Therapy - Evaluation/Plan of [...] Completion of Pre DBS assessment and medical receptionist of recommendations. Past Medical History: Past medical history, medication, and allergies were reviewed in the electronic medical record. Pertinent to therapy: Restless leg syndrome. . Previous Occupational Therapy: Unknown. Pain: Location: Back pain in morning. Education: High school. 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 Living Location: [facility]. Driving: Yes. Community Mobility: Assistive device [...] limits. -Right upper extremity: within normal limits. -Director Of Residential Services: Left - 99 lbs =75%; Right - [...] equipment for increased handwriting legibility using: Wide business relations manager pen. Aim big. Write slower. Response to [...] Achievement or Learning: Distance from clinic. Working catcher helper. Prognosis: Excellent for established goals. PLAN: Evaluation [...] exercise program. Procedures: Occupation Therapy Evaluation (CPT 97858): 30 minutes ADL/Self management (CPT 75039): 30 minutes Total Treatment Time: 60 minutes. The brick maker is completed by the therapist and the referring clinician's electronic signature certifies medical necessity for the plan above. Tylor Marr OTR/L Lic#[id number] documented in this encounter Plan of Treatment Scheduled Referrals Name Type Priority Associated Diagnoses Order S [facility] Occupational Therapy Referral Routine Paralysis agitans (H RC) Ordered: 06/20/2014, Expires: 2014 documented as of this encounter Visit Diagnoses Diagnosis Paralysis agitans (HRC) - Primary Paralysis agitans Other ill-defined conditions(799.89) Other ill-defined conditions documented in this encounter Care Teams Pharmacy District Manager Relationship Specialty Start Date End Date Lurdes Tohmas MD PCP - General 06/18/14 12/11/19 documented as of this encounter
--- OUTSIDE RECORDS SUMMARY | 2022-01-26 12:02 | XMS_ITS | Encounter Summary ---
:1955 Author Organization [employer] Address [address], [place] [address] Care Team Providers Name Role Phone No Primary/Referring, Phy Primary Care Provider Unavailable Reason for Visit Reason Comments Questions Encounter Details Date Type Department Care Team Description 05/05/2014 Telephone [facility] Fabi Ray, RN Questions [address] [place], [place] [address] Social History Tobacco Use [...] Phan. He sees Dr. Phan now in [place] due to copay. Explained that best if results appointment can be at [facility] he can meet with the DBS nurse after. Also explained will need to see the DBS nurse at [facility] DBS if approved for surgery. Good comprehension of plan. Transferred to front line to set up results appointment with Dr. Phna and to review pre-DBS appointments. Post-note: Confirmed with front line that 05/26/13 appt is for MRI and neuropsych with Dr. Ramirez. TENSIONING IRONWORKER HELPER documented in this encounter Plan of Treatment Not on filedocumented as of this encounter Visit Diagnoses Not on filedocumented in this encounter Care Teams Collar Baster Relationship Specialty Start Date End Date No Primary/Referring, Phy PCP - General 01/22/14 documented as of this encounter
--- OUTSIDE RECORDS SUMMARY | 2022-01-26 12:02 | XMS_ITS | Encounter Summary ---
:1955 Author Organization [facility] Address [address], [place] [address] Care Team Providers Name Role Phone Lurdes Thomas MD Primary Care Provider Encounter Details Date Type Department Care Team Description 09/17/2014 Notes/Orders [facility] Paige Clifford, COPY HOLDER [address] [place], [place] [address] [place] [address] (Wo rk) Social History Tobacco [...] on filedocumented in this encounter Care Teams Spray Foam Installer Relationship Specialty Start Date End Date Lurdes Thomas MD PCP - General 06/18/14 12/11/19 documented as of this encounter
--- OUTSIDE RECORDS SUMMARY | 2022-01-26 12:02 | XMS_ITS | Encounter Summary ---
:1955 Author Organization [facility] Address [address], [place] [address] Care Team Providers Name Role Phone Lurdes Thomas MD Primary Care Provider Reason for Visit Reason Comments Follow-up Encounter Details Date Type Department Care Team Description 07/08/2014 Office Visit [facility] Parashos, Sotirios Paralysis agitans [address] [place] A, MD (Primary Dx) Drive [address] [facility] [address] [place], [place] [phone] [address] (Wo rk) Social History Tobacco Use Types Packs/Day Years Used Date Smoking Tobacco: Never Smokeless Tobacco: Never Alcohol Use Standard Drinks/Week Comments Yes 0 (1 standard drink = 0.6 oz pure alcoho l) Sex Assigned at Date Recorded Not on file documented as of this encounter Last Filed Vital Signs Vital Sign Reading Time Taken Comments Blood Pressure 138/78 07/08/2014 9:00 AM SUPERVISOR HARVESTING Pulse 84 07/08/2014 9:00 AM SUPERVISOR HARVESTING Temperature - - Respiratory Rate - - Oxygen Saturation - - Inhaled Oxygen Concentration - - Weight 98.5 kg (217 lb 3.2 oz) 07/08/2014 8:56 AM SUPERVISOR HARVESTING Height 185.4 cm (6' 0.99) 07/08/2014 8:56 AM SUPERVISOR HARVESTING Body Mass Index 28.66 07/08/2014 8:56 AM SUPERVISOR HARVESTING documented in this encounter Patient Instructions Patient Doris Awad RN - 07/08/2014 8:56 AM CST Thank you for enrolling in [facility]. Please follow the instructions below to securely access your online medical record. [facility] allows you to send messages to your doctor, view your test results, renewyour prescriptions, schedule appointments, and more. How Do I Sign Up? 1. In your Internet browser, go to: [email or web address] 2. Click on the Enter Activation Code link under the New User? section. You will see the New Member Sign Up page. 3. Enter your [facility] Activation Code exactly as it appears below. You will not need to use this code after you???ve completed the sign-up process. If you do not sign up before the expiration date, youmust request a new code. [facility] Activation Code: [email or web address] Expires: 08/07/2014 8:56 AM 4. Enter your Date of (mm/dd/yyyy), Home Phone Number and Zip Code as indicated, then click Next. You will be taken to the next sign-up page 5. Create a [facility] ID. This will be your [facility] login ID and cannot be changed, so think of one that is secure and easy to remember. 6. Create a [facility] password. You can change your password at any time. 7. Enter your Security Question and Answer. This can be used at a later time if you forget your password. Click Next. 8. Enter your e-mail address. You will receive e-mail notification when new information is availablein [facility]. 9. Click Sign In. You can now view your medical record. Additional Information If you have questions, you can call [phone] to talk to our [facility] staff. Remember, [facility] is NOT to be used for urgent needs. For medical emergencies, dial 911. RVISOR HARVESTING documented in this encounter Progress Notes Maria Esther Phan MD - 07/08/2014 9:59 AM CST Dictated RVISOR HARVESTING documented in this encounter Plan of Treatment Not on filedocumented as of this encounter Visit Diagnoses Diagnosis Paralysis agitans (HRC) - Primary Paralysis agitans documented in this encounter Care Teams Pr Specialist Relationship Specialty Start Date End Date Lurdes Thomas MD PCP - General 06/18/14 12/11/19 documented as of this encounter
--- OUTSIDE RECORDS SUMMARY | 2022-01-26 12:02 | XMS_ITS | Encounter Summary ---
:1955 Author Organization [employer] Address [address] [place] [address] Care Team Providers Name Role Phone Lurdes Thomas MD Primary Care Provider Reason for Referral Specialty Diagnoses / Procedures Referred By Contact Refer red To Contact Maria Esther Phan MD [address] [place], [place] [address] Referral ID Status Reason Start Date Expiration Date Visits Requ ested Visits Authorized ENTICE ARCHITECT Reason for Visit Reason Comments VOICE, LOSS OF Encounter Details Date Type Department Care Team Description 06/18/2014 Initial Consult [facility] Paige Quesada inson's disease (Primary Dx); Therapy M, SUPERVISOR TRAIN OPERATIONS Dysphonia; [address] [employer] [address] [facility] [place] [phone] Social History Tobacco Use Types Packs/Day Years Used Date Smoking Tobacco: Never Smokeless Tobacco: Never Alcohol Use Standard Drinks/Week Comments Yes 0 (1 standard drink = 0.6 oz pure alcoho l) Sex Assigned at Date Recorded Not on file documented as of this encounter Progress Notes Paige Garcia, SUPERVISOR TRAIN OPERATIONS - 06/18/2014 5:17 PM CST Encounter Date: 06/18/2014 Patient : 1955 Speech Therapy - Parkinson's Disease Evaluation and Plan of Care [facility] Services Multidisciplinary Assessment Clinic Outpatient Evaluation [...] Any liquids. Previous Speech Therapy: Received at [facility]. Evaluation only 08/23/2007. Hand Dominance: Right Hearing Acuity: Within Functional Limits. Glasses: No. Education: High school. 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 Marital Status: . Living Environment: Lives with [...] Recommendations: Brief course of individual speech therapy. Parts Sales Manager Speech Goal: Client will be able to be understood without repetition 80% of the time in their daily environment as measured by patient report. Parts Sales Manager Swallowing Goal: -None Parts Sales Manager Memory/Cognition Goal: None. Short Term Goals: -Independent in speech/voice home program. -Client will improve respiratory support for speech and voice to provide a basis for intelligible speech. -Client will increase articulation accuracy for improved speech intelligibility. -Client will decrease speech rate for improved intelligibility. Goals Achieved Today at [facility] [place]: -Client and/or family verbalized comprehension of today's [...] family in agreement with care plan. The relays draftsperson is completed by the therapist, and the referring clinician's electronic signature certifies medical necessity for the plan above. documented in this encounter Plan of Treatment Scheduled Referrals Name Type Priority Associated Diagnoses Order S [facility] Speech Therapy Referral Routine Paralysis agitans (HRC) Or dered: 06/20/2014, Expires: 2014 documented as of this encounter Visit Diagnoses Diagnosis Parkinson's disease (HRC) - Primary Dysphonia Paralysis agitans (HRC) Paralysis agitans documented in this encounter Care Teams Sample Maker Relationship Specialty Start Date End Date Lurdes Thomas MD PCP - General 06/18/14 12/11/19 documented as of this encounter
--- OUTSIDE RECORDS SUMMARY | 2022-01-26 12:02 | XMS_ITS | Encounter Summary ---
:1955 Author Organization [employer] Address [address] [place] [address] Care Team Providers Name Role Phone Lurdes Thomas MD Primary Care Provider Reason for Referral Specialty Diagnoses / Procedures Referred By Contact Refer red To Contact Maria Esther Phan MD [address] [place], [place] [address] Referral ID Status Reason Start Date Expiration Date Visits Requ ested Visits Authorized OLE ROUNDER Reason for Visit Reason Comments Social Service Encounter Details Date Type Department Care Team Description 06/18/2014 Initial Consult [facility] Fabi Beverly Paralys is [facility] Services MEDICAL RECRUITER [address] corina Lamas [place], [place] [address] Social History Tobacco Use [...] Deep Brain Stimulation (DBS) Assessment at the [facility]. Assessment: Current Social Situation Pt and his live in their home in [place]. The pt does have any children, but his has two. The pt is close to his step-daughter and her family. 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 He has been open about [...] have time to discuss during this session. Camp Coordinator provided contact information and explained availability to answer any further questions or concerns. Session was 50 minutes long. OLE ROUNDER documented in this encounter Plan of Treatment Scheduled Referrals Name Type Priority Associated Diagnoses Order S chedule PARKINSONS SOC[employer] WORK Referral Routine Paralysis agitans (HRC) Ordered: 06/20/2014, CONSULT (AMB) Expires: 06/20 documented as of this encounter Visit Diagnoses Diagnosis Paralysis agitans (HRC) Paralysis agitans documented in this encounter Care Teams Post Doc Fellowship Relationship Specialty Start Date End Date Lurdes Thomas MD PCP - General 06/18/14 12/11/19 documented as of this encounter
--- OUTSIDE RECORDS SUMMARY | 2022-01-26 12:02 | XMS_ITS | Encounter Summary ---
:1955 Author Organization [facility] Address [address], [place] [address] Care Team Providers Name Role Phone No Primary/Referring, Phmyah Primary Care Provider Unavailable Encounter Details Date Type Department Care Team Description 01/30/2014 Orders Only [facility] Kiara Cristina, Vitamin D deficiency [address] Tim Ross MD (Primary Dx) [place] [phone] [address] TIM [phone] [place] [address] (Wo rk) Social History Tobacco Use [...] deficiency documented in this encounter Care Teams Clinical Sciences Professor Relationship Specialty Start Date End Date No Primary/Referring, Lilliana PCP - General 01/22/14 documented as of this encounter
--- OUTSIDE RECORDS SUMMARY | 2022-01-26 12:02 | XMS_ITS | Encounter Summary ---
:1955 Author [facility] Address [address], [place] [address] Care Team Providers Name Role Phone No Primary/Referring, Phy Primary Care Provider Unavailable Reason for Visit Reason Comments Patient Calling Back Encounter Details Date Type Department Care Team Description 04/15/2014 Telephone [facility] Shawnee Hilario, RN Patient Calling Back [address] corina Lamas [place], [place] [address] Social History Tobacco Use [...] TAC. States he spoke with Doris at [facility] and has an appointment set up 05/26/14. Do not see this appointment in our system at [facility]. Transferred him to [facility]. Shawnee Hilario RN - 04/15/2014 4:22 PM CST Patient left a message on the DBS nurse line stating he was returning a call about scheduling DBS. We had called him a month or so ago to tell him about our process and our understanding was he wanted to wait until After May because of insurance reasons. It may have been the vest front presser calling himto schedule. Left him a message asking him to speak to Gricelda. NG BRUSHER documented in this encounter Plan of Treatment Not on filedocumented as of this encounter Visit Diagnoses Not on filedocumented in this encounter Care Teams Cataract Lens Generator Relationship Specialty Start Date End Date No Primary/Referring, Phy PCP - General 01/22/14 documented as of this encounter
--- OUTSIDE RECORDS SUMMARY | 2022-01-26 12:02 | XMS_ITS | Encounter Summary ---
:1955 Author Organization [employer] Address [address], [place] [address] Care Team Providers Name Role Phone Lurdes Thomas MD Primary Care Provider Encounter Details Date Type Department Care Team Description 06/25/2014 Notes/Orders [facility] Millie Pedraza MD [address] [place], [place] [address] [address] [facility] N [id number] (Wo rk) Social History Tobacco Use Types [...] Phan will meet with him on 07/08/14/ DENCE LEASING AGENT documented in this encounter Plan of Treatment Not on filedocumented as of this encounter Visit Diagnoses Not on filedocumented in this encounter Care Teams Biological Science Aide Relationship Specialty Start Date End Date Lurdes Thomas MD PCP - General 06/18/14 12/11/19 documented as of this encounter
--- OUTSIDE RECORDS SUMMARY | 2022-01-26 12:02 | XMS_ITS | Encounter Summary ---
:1955 Author Organization [facility] Address [address] [place] [address] Care Team Providers Name Role Phone No Primary/Referring, Phy Primary Care Provider Unavailable Reason for Visit Reason Comments Appt. Scheduled Encounter Details Date Type Department Care Team Description 05/20/2014 Telephone [facility] Sheri Pearson RN Appt. Scheduled [address] [place], [place] [address] Social History Tobacco Use [...] scheduled for on Monday. It is at [facility] [place] the [place]. ROLLER documented in this encounter Plan of Treatment Not on filedocumented as of this encounter Visit Diagnoses Not on filedocumented in this encounter Care Teams Miller Head Wet Process Relationship Specialty Start Date End Date No Primary/Referring, Lupilloy PCP - General 01/22/14 documented as of this encounter
--- OUTSIDE RECORDS SUMMARY | 2022-01-26 12:02 | XMS_ITS | Encounter Summary ---
:1955 Author Organization [facility] Address [address], [place] [address] Care Team Providers Name Role Phone Lurdes Thomas MD Primary Care Provider Encounter Details Date Type Department Care Team Description 07/23/2014 Notes/Orders [facility] Millie Pedraza MD [address] [place], [place] [address] [address] [facility] N [id number] (Wo rk) Social History Tobacco Use Types [...] surgery, as he was getting some benefits. ECT FACILITATOR documented in this encounter Plan of Treatment Not on filedocumented as of this encounter Visit Diagnoses Not on filedocumented in this encounter Care Teams Monitoring Coordinator Relationship Specialty Start Date End Date Lurdes Thomas MD PCP - General 06/18/14 12/11/19 documented as of this encounter
--- OUTSIDE RECORDS SUMMARY | 2022-01-26 12:02 | XMS_ITS | Encounter Summary ---
:1955 Author Organization [facility] Address [address], [place] [address] Care Team Providers Name Role Phone Lurdes Thomas MD Primary Care Provider Encounter Details Date Type Department Care Team Description 06/18/2014 Notes/Orders [facility] Doris Arauz, Paralysis agitans [address] RN (Primary D x) [place] [address] Social History Tobacco Use Types [...] had . Older the 90 days. Thanks. DING ARCHITECTURAL DESIGNER documented in this encounter Plan of Treatment Not on filedocumented as of this encounter Visit Diagnoses Diagnosis Paralysis agitans (HRC) - Primary Paralysis agitans documented in this encounter Care Teams Manufacturing Sr Engineer Relationship Specialty Start Date End Date Lurdes Thomas MD PCP - General 06/18/14 12/11/19 documented as of this encounter
--- OUTSIDE RECORDS SUMMARY | 2022-01-26 12:02 | XMS_ITS | Encounter Summary ---
:1955 Author [facility] Address [address] [address] Care Team Providers Name Role Phone Lurdes Thomas MD Primary Care Provider Reason for Visit Reason Comments Questions Encounter Details Date Type Department Care Team Description 07/09/2014 Telephone [facility] Sheir Pearson, RN Questions [address] [place], [place] [address] Social History Tobacco Use [...] he will hear from them to schedule. ISION LENS POLISHER documented in this encounter Plan of Treatment Not on filedocumented as of this encounter Visit Diagnoses Not on filedocumented in this encounter Care Teams Machine Stemmer Relationship Specialty Start Date End Date Lurdes Thomas MD PCP - General 06/18/14 12/11/19 documented as of this encounter
--- OUTSIDE RECORDS SUMMARY | 2022-01-26 12:02 | XMS_ITS | Encounter Summary ---
:1955 Author Organization [employer] Address [address], [place] [address] Care Team Providers Name Role Phone Lurdes Thomas MD Primary Care Provider Reason for Visit Reason Comments Other Encounter Details Date Type Department Care Team Description 07/08/2014 Nursing Visit [facility] Doris Arauz, PD (Parkinson's [address] RN disease) ( Primary Dx) [place] [address] Social History Tobacco Use Types [...] Dr. Kp Phan. MD Doris Arauz, RN ECTOR TUBES documented in this encounter Plan of Treatment Not on filedocumented as of this encounter Visit Diagnoses Diagnosis PD (Parkinson's disease) (HRC) - Primary Paralysis agitans documented in this encounter Care Teams Turf Farm Worker Relationship Specialty Start Date End Date Lurdes Thomas MD PCP - General 06/18/14 12/11/19 documented as of this encounter
--- OUTSIDE RECORDS SUMMARY | 2022-01-26 12:02 | XMS_ITS | Encounter Summary ---
:1955 Author Organization [employer] Address [address], [place] [address] Care Team Providers Name Role Phone Lurdes Thomas MD Primary Care Provider Encounter Details Date Type Department Care Team Description 06/18/2014 Initial Consult Usha Mcpherson Para lysis agitans Services (Primary Dx) [address] [place] [address] Social History Tobacco Use Types [...] Living Environment Lives with . Living Location: [place], [place] Leisure Activities: Not discussed during session. [...] agitans documented in this encounter Care Teams Mortgage Processor Relationship Specialty Start Date End Date Lurdes Thomas MD PCP - General 06/18/14 12/11/19 documented as of this encounter
--- OUTSIDE RECORDS SUMMARY | 2022-01-26 12:03 | XMS_ITS | Encounter Summary ---
:1955 Author Organization [facility] Address [address] [address] Care Team Providers Name Role Phone Unavailable Primary Care Provider Unavailable Encounter Details Date Type Department Care Team Description 09/22/2010 PN Conversion Only Alexey Tolentino, [facility] [place] [address] [address] [facility] [address] (Wo rk) Social History Tobacco Use Types Packs/Day Years Used Date Smoking Tobacco: Never Assessed Sex Assigned at Date Recorded Not on file documented as of this encounter Plan of Treatment Not on filedocumented as of this encounter Visit Diagnoses Not on filedocumented in this encounter
--- OUTSIDE RECORDS SUMMARY | 2022-01-26 12:03 | XMS_ITS | Encounter Summary ---
:1955 Author [facility] Address [address], [place] [address] Care Team Providers Name Role Phone Unavailable Primary Care Provider Unavailable Encounter Details Date Type Department Care Team Description 08/17/2009 Office Visit [facility] Alexey Alvarez MD [address] [place] [address] [place] [address] [phone] (Wo rk) Social History Tobacco Use Types [...] signed by Alexey Garcia MD at 08/17/09 6226 Author: Alexey Garcia MD Service: (none) Author Type: Physician Filed: 09/11/102113 Note Time: 08/17/09 0001 Status: Signed Computer Installation Engineer: Alexey Garcia MD (Physician) SUBJECTIVE: 54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 He has no side effects. He formerly was with [facility] and his insurance is changed. He has Parkinson's and sees Dr. Phan for its management in [place]. The remainder of the complete ROS is [...]
--- OUTSIDE RECORDS SUMMARY | 2022-01-26 12:03 | XMS_ITS | Encounter Summary ---
:1955 Author Organization [facility] Address [address] [place] [address] Care Team Providers Name Role Phone Unavailable Primary Care Provider Unavailable Encounter Details Date Type Department Care Team Description 07/22/2008 PN Conversion Only AIRPORT CONVERSION [address] [place] [address] Social History Tobacco Use Types Packs/Day Years Used Date Smoking Tobacco: Never Assessed Sex Assigned at Date Recorded Not on file documented as of this encounter Plan of Treatment Not on filedocumented as of this encounter Visit Diagnoses Not on filedocumented in this encounter
--- OUTSIDE RECORDS SUMMARY | 2022-01-26 12:03 | XMS_ITS | Encounter Summary ---
:1955 Author [facility] Address [address] [place] [address] Care Team Providers Name Role Phone Unavailable Primary Care Provider Unavailable Encounter Details Date Type Department Care Team Description 05/11/2006 Office Visit [place] Charanjit [place] [facility] D [facility] [address] [place] [address] Social History Tobacco Use Types Packs/Day Years Used Date Smoking Tobacco: Never Assessed Sex Assigned at Date Recorded Not on file documented as of this encounter Plan of Treatment Not on filedocumented as of this encounter Visit Diagnoses Not on filedocumented in this encounter
--- OUTSIDE RECORDS SUMMARY | 2022-01-26 12:03 | XMS_ITS | Encounter Summary ---
:1955 Author [facility] Address [address] [place] [address] Care Team Providers Name Role Phone Unavailable Primary Care Provider Unavailable Encounter Details Date Type Department Care Team Description 07/22/2008 [facility] Occupational Logan Croft, Medicine [address] [place] [address] [place] [address] Social History Tobacco Use Types Packs/Day Years Used Date Smoking Tobacco: Never Assessed Sex Assigned at Date Recorded Not on file documented as of this encounter Plan of Treatment Not on filedocumented as of this encounter Visit Diagnoses Not on filedocumented in this encounter
--- OUTSIDE RECORDS SUMMARY | 2022-01-26 12:03 | XMS_ITS | Encounter Summary ---
:1955 Author [facility] Address [address] [address] Care Team Providers Name Role Phone Unavailable Primary Care Provider Unavailable Encounter Details Date Type Department Care Team Description 07/31/2007 Hospital Encounter CONV METH PKDSV Nela Soriano, RN [address] [place]on, [place] [address] Social History Tobacco Use Types Packs/Day Years [...] Therapist, Occupational Therapist, Speech and Language Pathologist, Professional Services Consultant, Registered Nurse). Orders: Evaluate and treat. Exacerbation Date: 08/21/2007 Initial Certification Dates: 08/23/2007 to 09/21/07 SUBJECTIVE: Mobility Limitations Reported: Denies limitations. Balance/Falls in past 6 months: None reported. Motor Fluctuations: No. Pain Screen: No pain. Past Medical History: Unremarkable per patient report. Support System: Lives with primary medicare biller. Living Situation: Private home, more than 1 level. [facility] Living Environment: Urban-mostly paved areas to ambulate. Community Mobilities: Driving-unrestricted. Frequency of Outings: Leaves home on a daily basis. Leisure Activities: Plays guitar. Formal Exercises: Walking-treadmill or indoors. Weight lifting. Yoga. Exercise Frequency: Several times per week. Communication: Clear. 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 Travels several times a year. Patient's [...] -Exercise handouts. Procedures: Physical Therapy Evaluation (CPT 74523) Therapeutic Exercise (CPT 03254) 30 minutes TOTAL TREATMENT TIME: 60 minutes. Electronically signed by: Sandrine Martinez, PT, 1189, 08/23/2007 *SH~REHAB~PTPARKEVA~ Shorthand Note completed on: 08/23/2007 3:15 PM documented in this encounter Plan of Treatment Not on filedocumented as of this encounter Visit Diagnoses Not on filedocumented in this encounter
--- OUTSIDE RECORDS SUMMARY | 2022-01-26 12:03 | XMS_ITS | Encounter Summary ---
:1955 Author Organization [facility] Address [address] [place] [address] Care Team Providers Name Role Phone Unavailable Primary Care Provider Unavailable Encounter Details Date Type Department Care Team Description 05/05/2009 Nursing Visit [facility] [place] [address] [place] [address] Social History Tobacco Use Types Packs/Day Years Used Date Smoking Tobacco: Never Assessed Sex Assigned at Date Recorded Not on file documented as of this encounter Plan of Treatment Not on filedocumented as of this encounter Visit Diagnoses Not on filedocumented in this encounter
--- OUTSIDE RECORDS SUMMARY | 2022-01-26 12:03 | XMS_ITS | Encounter Summary ---
:1955 Author Organization [facility] Address [address] [place] [address] Care Team Providers Name Role Phone Unavailable Primary Care Provider Unavailable Encounter Details Date Type Department Care Team Description 05/06/2008 Hospital Encounter CONV METH PKDNela Arellano, RN [address] Gagnon, [place] [address] Social History Tobacco Use Types Packs/Day Years [...]
--- OUTSIDE RECORDS SUMMARY | 2022-01-26 12:03 | XMS_ITS | Encounter Summary ---
:1955 Author [facility] Address [address], [place] [address] Care Team Providers Name Role Phone Unavailable Primary Care Provider Unavailable Encounter Details Date Type Department Care Team Description 11/19/2012 Notes/Orders [facility] Katalina Laughlin, PT [address] [place] [address] [place], [place] [phone] (Wo rk) Social History Tobacco Use Types Packs/Day Years Used Date Smoking Tobacco: Never Assessed Sex Assigned at Date Recorded Not on file documented as of this encounter Progress Notes Katalina Laughlin, PT - 11/19/2012 9:58 AM CDT No show for scheduled PT consult appointment this morning. Katalina Laughlin PT, [facility] License # [id number] documented in this encounter Plan of Treatment Not on filedocumented as of this encounter Visit Diagnoses Not on filedocumented in this encounter
--- OUTSIDE RECORDS SUMMARY | 2022-01-26 12:03 | XMS_ITS | Encounter Summary ---
:1955 Author Organization [facility] Address [address] [place] [address] Care Team Providers Name Role Phone Unavailable Primary Care Provider Unavailable Encounter Details Date Type Department Care Team Description 08/17/2009 PN Conversion Only [facility] CONVERSION Alexey Garcia, [address] [place] [address] [address] [place], [place] [address] (Wo rk) Social History [...] Greater than 150 ng/m L Performed at [facility] [address] [place] [address] 8 Specimen (Source) Anatomical Collection Method Collection Time Re ceived Time Location / / Volume Laterality 08/17/2009 8:30 AM CDT Alexey Garcia MD LAB_1 Performing Organization Address City/[facility] Code Phon e Number HP CONVERSION Prostatic Specific Antigen (F/U) (08/17/2009 8:30 AM CDT) P athologist Signature Prostate 0.6 0.0 - 4.0 HP CONVERSION Specific ng/mL Antigen Specimen (Source) Anatomical Collection Method Collection Time Re ceived Time Location / / Volume Laterality 08/17/2009 8:30 AM CDT Alexey Garcia MD LAB_1 Performing Organization Address City/[facility]/ZIP Code Phon e Number HP CONVERSION [...] Alexey Garcia MD LAB_1 Performing Organization Address City/[facility] Code Phon e Number HP CONVERSION (ABNORMAL) GLUCOSE (08/17/2009 8:30 AM CDT) P athologist Signature Lab Glucose 105 (H) 60 - 100 HP CONVERSION mg/dL Specimen (Source) Anatomical Collection Method Collection Time Re ceived Time Location / / Volume Laterality 08/17/2009 8:30 AM CDT Alexey Garcia MD LAB_1 Performing Organization Address [facility] Phon e Number HP CONVERSION ALT (SGPT) (08/17/2009 8:30 AM CDT) [facility] Method Time Signature Alanine 33 4 - 55 HP CONVERSION Aminotransferase U/L Specimen (Source) Anatomical Collection Method Collection Time Re ceived Time Location / / Volume Laterality 08/17/2009 8:30 AM CDT Alexey Garcia MD LAB_1 Performing Organization Address [facility] Phon e Number HP CONVERSION documented in this encounter Visit Diagnoses Not on filedocumented in this encounter
--- OUTSIDE RECORDS SUMMARY | 2022-01-26 12:03 | XMS_ITS | Encounter Summary ---
:1955 Author Organization [facility] Address [address] [place] [address] Care Team Providers Name Role Phone Unavailable Primary Care Provider Unavailable Encounter Details Date Type Department Care Team Description 08/23/2007 Therapy CONV METH SP Jasbir Laughlin DIE CASTING MACHINE MAINTAINER [address] [facility] Liliam Joshi N [phone] (Wo rk) Social History Tobacco Use Types [...] 0322 Note Time: 08/23/07 0001 Status: Signed Apprentice Instrument Technician: Bárbara Laughlin CCC-DIE CASTING MACHINE MAINTAINER (Speech and Language Pathologist) [facility] [place] Speech Pathology - Parkinson's Disease Evaluation Primary Diagnosis: Parkinson's disease. This is patient's initial outpatient evaluation. Initial Certification Dates: 08/23/2007 to 09/21/07 Referring Physician: Maria Esther Phna MD. Onset/Exacerbation Date: 08/21/2007 Date of Evaluation: [...] No. Smoking: No. Education: High school. 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 Marital Status: . Living Arrangement: Lives with spouse. Safety in living environment: Patient feels safe in current living environment. Vulnerable adult assessment = low risk OBJECTIVE Behavioral Characteristics: Alert. Motivated. Cooperative. Tests Administered: [facility] Assessment of Communication in Parkinson's Disease [...] One time evaluation and treatment only at [facility]. Earth Auger Operator goals: -Maximize speech and voice for functional [...] 60 minutes. Electronically signed by: Bárbara Laughlin MA/LAVELL-DIE CASTING MACHINE MAINTAINER, 5063, 08/23/2007 *SH~REHAB~SPARKEVAL~ Shorthand Note Completed on: 08/23/2007 1:19 PM documented in this encounter Plan of Treatment Not on filedocumented as of this encounter Visit Diagnoses Not on filedocumented in this encounter
--- OUTSIDE RECORDS SUMMARY | 2022-01-26 12:03 | XMS_ITS | Encounter Summary ---
:1955 Author Organization [facility] Address [address] [place] [address] Care Team Providers Name Role Phone Unavailable Primary Care Provider Unavailable Encounter Details Date Type Department Care Team Description 12/04/2007 Hospital Encounter CONV METH PKDKpV Nela Soriano, RN [address] BL[address] [place]agnon, [place] [address] Social History Tobacco Use Types Packs/Day Years [...]
--- OUTSIDE RECORDS SUMMARY | 2022-01-26 12:03 | XMS_ITS | Encounter Summary ---
:1955 Author Organization [facility] Address [address] [place] [address] Care Team Providers Name Role Phone Unavailable Primary Care Provider Unavailable Encounter Details Date Type Department Care Team Description 05/11/2006 PN Conversion Only AIRPORT CONVERSION [address] [place] [address] Social History Tobacco Use Types Packs/Day Years Used Date Smoking Tobacco: Never Assessed Sex Assigned at Date Recorded Not on file documented as of this encounter Plan of Treatment Not on filedocumented as of this encounter Visit Diagnoses Not on filedocumented in this encounter
--- OUTSIDE RECORDS SUMMARY | 2022-01-26 12:03 | XMS_ITS | Encounter Summary ---
:1955 Author [facility] Address [address] [place] [address] Care Team Providers Name Role Phone Unavailable Primary Care Provider Unavailable Encounter Details Date Type Department Care Team Description 07/30/2007 PN Conversion Only [facility] CONVERSION Social History Tobacco Use Types Packs/Day Years Used Date Smoking Tobacco: Never Assessed Sex Assigned at Date Recorded Not on file documented as of this encounter Plan of Treatment Not on filedocumented as of this encounter Visit Diagnoses Not on filedocumented in this encounter
--- OUTSIDE RECORDS SUMMARY | 2022-01-26 12:03 | XMS_ITS | Encounter Summary ---
:1955 Author [facility] Address [address] [place] [address] Care Team Providers Name Role Phone Unavailable Primary Care Provider Unavailable Encounter Details Date Type Department Care Team Description 05/04/2009 PN Conversion Only INSULATION SPRAYER [address] [place] [address] Social History Tobacco Use Types Packs/Day Years Used Date Smoking Tobacco: Never Assessed Sex Assigned at Date Recorded Not on file documented as of this encounter Plan of Treatment Not on filedocumented as of this encounter Visit Diagnoses Not on filedocumented in this encounter
== END 2022-01-20 10:30 | disposition home or self-care (01) ==
LOC: AMB 01-26 11:53
PROVIDERS: PCP Family Medicine; Visit Provider Family Medicine
DX: K92.1 Melena (principal)
CPT/HCPCS: A0425; A0429

== ENCOUNTER 2022-01-20 11:03 | Emergency (ER) | payer BC, SELFPAY ==
[2022-01-20 11:12] VITALS: BP 121/81; PULSE 94; RESP 16; TEMP 36.6; O2SAT 93; BMI 21.1
--- NOTE | 2022-01-20 11:55 | ED.NURSE ---
had a large stool with liquid and farmed stool. this is medium brown with some bloody mucus with this. dr orozco did view.
[2022-01-20] MEDS: 0.9 % SODIUM CHLORIDE 1000 ml 1,000 ML IV (12:09)
[2022-01-20 12:11] LABS: Lactate* 1.2 mmol/L (0.5-1.9)
[2022-01-20 12:14] LABS: Basophils Absolute Auto 0.01 K/uL (0.00-0.30); Basophils Percent Auto 0.1 % (0.0-3.0); Eosinophils Absolute Auto 0.01 K/uL (0.00-0.50); Eosinophils Percent Auto 0.1 % (0.0-7.0); Hematocrit 42.3 % (37.0-53.0); Hemoglobin* 14.2 gm/dL (13.5-17.5); Immature Granulocytes Abs Auto 0.02 K/uL (0.00-0.30); Lymphocytes Percent Auto 6.4 % (20-44); Mean Corpuscular HGB Conc 34 gm/dL (32-36); Mean Corpuscular Hemoglobin 30 pg (26-34); Mean Corpuscular Volume 88 fL (80-100); Monocytes Percent Auto 6.8 % (0.0-11.0); Neutrophils Percent Auto 86.4 % (42.0-72.0); Platelet Count* 332 K/uL (140-440); RDW Coefficient of Variation % 13.1 % (11.5-15.5); Red Blood Count 4.79 m/uL (4.30-5.90); White Blood Count* 8.88 K/uL (4.50-11.00)
[2022-01-20 12:17] LABS: Slide Review Reflex No
--- NOTE | 2022-01-20 12:32 | ED.NURSE ---
Had a loose BM- no blood noted. notified.
--- OUTSIDE RECORDS SUMMARY | 2022-01-20 12:42 | XMS_ITS | Clinical Summary ---
:1955 Author Organization [place] Address [address] [facility] [address] Care Team Providers Name Role Phone Samantha Stauffer MD Primary Care Provider [phone] Allergies No known active allergies Medications [...] Comments Lipids Father 1 Cardiovascular Father 2 ME, s/p CABG in mid- late 60's Diabetes Father 2 Neurologic Disorder Father 2 Parkinson's Cardiovascular Mother CVA x4 and ME, s/p C ABG in mid-late 60's Relation [...] this topic Medical Devices Implanted Type Area [employer] Device Shelf Model / Identifier Expiration Date Ser ial / Lot Fiducials Skull IMAGE GUIDED 06/12/2017 [id number] / Implanted: Qty: 5 on 09/09/2014 by Demetrio gale, Gonzalez Snider MD at [facility] NEUROLO / [id number] Description: 5 fiducials used - opened 1 box for charging (contains 6 in box). Done in the clinic - reported to us by Alliso n [employer] [id number] Right: Chest [employer]NE[employer]O 12/17/2015 [id number] / Implanted: Qty: 1 on 09/16/2014 by Demetrio gale, Gonzalez Snider MD at [facility] [id number] / Insurance Payer Benefit Plan / Subscriber ID Effective Dates Phone Addre ss Type Group BCBS BCBS OUT OF [id number] 2014-Present [phone] [address] [place] [address] [address] (Home) [place] [phone] [place] 5 [phone] (Work) Advance Directives For more information, please contact: [phone] Latest Code Status on File Code Status Date Activated Date Inactivated Comments Full Code 09/10/2014 9:18 AM Care Teams Delivery Department Supervisor Relationship Specialty Start Date End Date Samantha Stauffer MD PCP - General Family Medicine 12/17/20 [facility] [address] [place] [address]
--- OUTSIDE RECORDS SUMMARY | 2022-01-20 12:42 | XMS_ITS | Encounter Summary ---
:1955 Author Organization [place] Address [address] [place] [address] Care Team Providers Name Role Phone Samantha Stauffer MD Primary Care Provider [phone] Reason for Referral Diagnostic Imaging XR (Routine) - Closed Specialty Diagnoses / Procedures Referred By Contact Refer red To Contact Diagnoses Esophageal dysphagia Charanjit Gray MD Procedures XR [facility] [address] [address] [place], [place] [address] Referral ID Status Reason Start Date Expiration Date Visits Requ ested Visits Authorized [id number] Closed 12/09/2020 12/09/2021 1 1 Reason for Visit Diagnostic Imaging XR (Routine) - Closed Specialty Diagnoses / Procedures Referred By Contact Refer red To Contact Diagnoses Esophageal dysphagia Charanjit Gray MD Procedures XR [facility]ophagram [facility] [address] [address] [place], [place] [address] Referral ID Status Reason Start Date Expiration Date Visits Requ ested Visits Authorized [id number] Closed 12/09/2020 12/09/2021 1 1 Encounter Details Date Type Department Care Team Description 12/17/2020 [facility] Charanjit Gray MD Esophageal Encounter [facility] dysphagia [address] [place] [address] [address] [address] [place] [address] [place], [place] [phone] (Wo rk) [address] [phone] Social History Tobacco Use Types Packs/Day Years [...] to assess for underlying mucosal esophageal lesion. ODNYA PENA MD Narrative 12/17/2020 4:05 PM CDT [...] dose documented in this encounter Care Teams Rural Carrier Associate Relationship Specialty Start Date End Date Samantha Stauffer MD PCP - General Family Medicine 12/17/20 [place] [address] documented as of this encounter
--- OUTSIDE RECORDS SUMMARY | 2022-01-20 12:42 | XMS_ITS | Encounter Summary ---
:1955 Author Organization [place] Address [address] [facility] [place] [address] Care Team Providers Name Role Phone Lurdes Thomas MD Primary Care Provider [phone] Reason for Visit (Routine) - Closed Specialty Diagnoses / Procedures Referred By Contact Refer red To Contact Radiology / Radiology. Procedures Uu Mri MR LUMBAR SPINE [address] [place] [address] Phone: Referral ID Status Reason Start Date Expiration Date Visits Requ ested Visits Authorized [id number] Closed 08/18/2015 08/17/2016 1 1 Encounter Details Date Type Department Care Team Description 08/21/2015 Hospital Encounter [facility] ParashosVianeye re low back pain [facility] Imaging Maria Esther Amaro MD [address] [place], [place] [address] [employer] [id number] [place] [address] Social History Tobacco Use Types [...] Lumbago documented in this encounter Care Teams Telegraphic Instrument Supervisor Relationship Specialty Start Date End Date Lurdes Thomas MD PCP - General Internal Medicine 06/11/14 12/16/20 documented as of this encounter
--- OUTSIDE RECORDS SUMMARY | 2022-01-20 12:42 | XMS_ITS | Encounter Summary ---
:1955 Author Organization [place] Address [address] [place] [address]. [place] [address] Care Team Providers Name Role Phone Lurdes Thomas MD Primary Care Provider [phone] Reason for Visit Reason Onset Date Comments Panel Management 11/19/2014 Colonoscopy Encounter Details Date Type Department Care Team Description 11/19/2014 Telephone [facility] Lurdes Oh Panel Management [address] [facility] MD [place] (Colonoscopy) [place] [address] [facility] [phone] [address] (Wo rk) Social History Tobacco Use [...] Review Date of last visit with a [facility] provider: Dr Thomas on 09/22/14. Date of next visit with a [facility] provider: None. Problem List Patient Active Problem [...] visit for Colonoscopy/FIT. Type of outreach: Sent HSystem message. Questions for provider review: None Please indicate office visit, lab, MTM, or nurse appt if needed. Indicate fasting or not fasting. Tamy Leahy LPN Chart routed to Care Team . documented in this encounter Plan of Treatment Not on filedocumented as of this encounter Visit Diagnoses Not on filedocumented in this encounter Care Teams Manager Call Relationship Specialty Start Date End Date Lrudes Thomas MD PCP - General Internal Medicine 06/11/14 12/16/20 documented as of this encounter
--- OUTSIDE RECORDS SUMMARY | 2022-01-20 12:42 | XMS_ITS | Encounter Summary ---
:1955 Author Organization [place] Address [address] [facility] [place] [address] Care Team Providers Name Role Phone Lurdes Thomas MD Primary Care Provider [phone] Reason for Visit Auth/Cert - Closed Specialty Diagnoses / Procedures Referred By Contact Refer red To Contact Surgery Diagnoses PARKINSONS DISEASE Sh Periop Services Procedures IMPLANT PULSE GENERATOR SUBCUTANEOUS [address] [place] [address] Phone: Referral ID Status Reason Start Date Expiration Date Visits Requ ested Visits Authorized [id number] Closed 1 1 Encounter Details Date Type Department Care Team Description 09/16/[address] [facility] Gonzalez Rowland BILATERAL LEAD EXTENSION Southhelena Snider MD AND RIGHT INFRACLAVICULAR Services XX RESIGNED XX PULSE GENERATOR PLACEMENT [address] ([employer]) [address] [place] [address] [place] [address] [phone] Surgery Details Date/Time Status Location OR Service [...] MD Primary Neurosurgery 1 Arline Peñaloza APRN STERILE PREPARATION TECHNICIAN Mechatronics Engineer Autho rization 1 documented in this encounter [...] Physician Discharge Summary Patient ID: Andrew Pang [id number] 59 year old 1955 Admit date: 09/16/2014 Discharge date and time: 09/16/2014 Admitting Physician: Gonzalez Rowland MD Discharge Physician: Arline Hutson [facility] Admission Diagnoses: PARKINSONS DISEASE Discharge [...] deep brain stimulator placement vitamin D (ERGOCALCIFEROL) 42415 UNIT capsule Take 1 capsule (50,000 Units) [...] Deep Brain Stimulator Postop Instructions Dr. Rowland [phone] 1. Ok to shower after 3 days. [...] ?? You have been given a patient vb net programmer that can check that the stimulator [...] Take 1 capsule 4 capsule 2 08/2602/12/2015 75008 UNIT (50,000 Units) by capsuleIndications: Vitamin mouth every 7 D deficiency disease days documented as of this encounter H&P Notes Corine Alexander - 09/11/2014 7:49 AM CDT The purpose of this note is to make the H&P performed in the clinic within the last 30 days available in the hospital surgical encounter. Source Note - Lurdes Thomas MD - 08/25/2014 12:38 PM CDT [address] [address] Dept: [phone] PRE-OP EVALUATION: Today's date: 08/25/2014 Andrew Pang (: 1955) presents for pre-operative evaluation assessment as requested by . He requires evaluation and anesthesia risk assessment prior to undergoing surgery/procedurefor treatment of Parkinson's . Proposed procedure: Deep brain stimulator implant Date of Surgery/ Procedure: 09/09& Time of Surgery/ Procedure: 05 Hospital/Surgical Facility: [facility] Primary Physician: Lurdes Thomas Type [...] cardiovascular risks for perioperative complications such as (ID, PE, VFib and 3?? AV Block): No [...] evaluation report is provided to requesting physician. [facility] Preop Guidelines documented in this encounter Nursing [...] bilateral lead extensions SURGEON: Gonzalez Rowland MD Mechatronics Engineer: Arline Hutson NP PROCEDURE: The patient was [...] Provider: Pavel Miner) Routine, 2 g, Intravenous, PRE-OP/PRE-RI OCEDURE, Starting on Mon09/16/14 at 0638, For [...] Post-procedure documented in this encounter Care Teams Brass Pourer Relationship Specialty Start Date End Date Lurdes Thomas MD PCP - General Internal Medicine 06/11/14 12/16/20 documented as of this encounter
--- OUTSIDE RECORDS SUMMARY | 2022-01-20 12:42 | XMS_ITS | Encounter Summary ---
:1955 Author Organization [place] Address [address] [facility] [place] [address] Care Team Providers Name Role Phone Lurdes Thomas MD Primary Care Provider [phone] Encounter Details Date Type Department Care Team Description 11/25/2014 Orders Only [facility] Eag an Hyperlipidemia LDL goal < [address] [place] [address] Social History Tobacco [...] athologist Signature Cholesterol 219 (H) <200 mg/dL [facility] Comment: LDL Cholesterol is the primary guide to therapy. The NCEP recommends further evaluation of: patients with cholesterol greater than 200 mg/dL if additional risk facto rs are present, cholesterol greater than 240 mg/dL, triglycerides greater than 1 50 mg/dL, or HDL less than 40 mg/dL. Triglycerides 153 (H) 0 - 150 mg/dL [facility] Comment: Fasting specimen HDL Cholesterol 65 >40 mg/dL [facility] LDL Cholesterol Calculated 123 0 - 129 mg/dL [facility] Comment: LDL Cholesterol is the primary guide to therapy: LDL-cholesterol goal in high risk patients is <100 mg/dL and in very high risk patients is <70 mg/dL. VLDL-Cholesterol 31 (H) 0 - 30 mg/dL [facility] Cholesterol/HDL Ratio 3.4 0.0 - 5.0 [facility] Specimen Anatomical Collection Method Collection Time Receive d Time (Source) Location / / Volume Laterality Blood specimen 11/25/2014 7:57 AM 015 7:58 (specimen) CDT AM CDT Lurdes Thomas MD LAB - BLOOD ORDERABLES Performing Organization Address City/State/ZIP Code Phon e Number [facility] [address] [place] [address] documented in this encounter Visit Diagnoses Diagnosis Hyperlipidemia LDL goal < 130 Other and unspecified hyperlipidemia documented in this encounter Care Teams Brush Maker Relationship Specialty Start Date End Date Lurdes Thomas MD PCP - General Internal Medicine 06/11/14 12/16/20 documented as of this encounter
--- OUTSIDE RECORDS SUMMARY | 2022-01-20 12:42 | XMS_ITS | Encounter Summary ---
:1955 Author Organization [place] Address [address] [place] [address]. [place] [address] Care Team Providers Name Role Phone Samantha [...] filedocumented in this encounter Care Teams Supervisor Wool Shearing Relationship Specialty Start Date End Date Samantha Stauffer MD PCP - General Family Medicine 12/17/[address] [address] documented as of this encounter
--- OUTSIDE RECORDS SUMMARY | 2022-01-20 12:42 | XMS_ITS | Encounter Summary ---
:1955 Author Organization [place] Address [address] [place] [address]. [place] [address] Care Team Providers Name Role Phone Lurdes Thomas MD Primary Care Provider Reason for Visit Reason Onset Date Comments Panel Management 06/25/2015 Encounter Details Date Type Department Care Team Description 06/25/2015 Telephone [facility] Lurdes Oh Panel Management [address] [facility] [place] [address] [facility] [phone] 8675 [place], [place] [address] (Wo rk) Social History Tobacco Use [...] a reminder letter regarding the FIT test. RNET AND E BUSINESS PROJECT MANAGER Telephone Encounter - Tamy Leahy LPN - 06/25/2015 2:13 PM CST Panel Management Review Patient has the following on his problem list: none Composite cancer screening Chart review shows that this patient is due/due soon for the following Fecal Colorectal (FIT) Summary: Patient is due/failing the following: FIT Action needed: FIT test completion Type of outreach: Sent [employer] message. Reminding patient to complete FIT test. Questions for provider review: None Tamy Leahy LPN Chart routed to Care Team . RNET AND E BUSINESS PROJECT MANAGER documented in this encounter Plan of Treatment Not on filedocumented as of this encounter Visit Diagnoses Not on filedocumented in this encounter Care Teams Quality Assurance Tester Relationship Specialty Start Date End Date Lurdes Thomas MD PCP - General Internal Medicine 06/11/14 12/16/20 documented as of this encounter
--- OUTSIDE RECORDS SUMMARY | 2022-01-20 12:42 | XMS_ITS | Encounter Summary ---
:1955 Author Organization [place] Address [address] [place] [address]. [place] [address] Care Team Providers Name Role Phone Lurdes Thomas MD Primary Care Provider [phone] Reason for Visit Reason Onset Date Comments Other 11/13/[address] [facility] Encounter Details Date Type Department Care Team Description 11/13/2014 Telephone [facility] Gonzalez Rowland Other (Ba ttroberto carlos moving [facility] MD Tylor in chest) [employer] XX RESIGNED XX [address] [facility] [address] [place] [address] [place] [address] [place] [address] [place] [address] [phone] Social History Tobacco Use Types Packs/Day Years [...] Notes Telephone Encounter - Rachel Cuadra, MARISOL CLINICAL EDUCATION COORDINATOR - 11/13/2014 3:03 PM CDT Pt called [...] on filedocumented in this encounter Care Teams Compound Specialist Relationship Specialty Start Date End Date Lurdes Thomas MD PCP - General Internal Medicine 06/11/14 12/16/20 documented as of this encounter
--- OUTSIDE RECORDS SUMMARY | 2022-01-20 12:42 | XMS_ITS | Encounter Summary ---
:1955 Author Organization [facility] Address [address] [place] [address] Care Team Providers Name Role Phone Lurdes Thomas MD Primary Care Provider [phone] Reason for Visit Auth/Cert - Closed Specialty Diagnoses / Procedures Referred By Contact Refer red To Contact Surgery Diagnoses PARKINSONS DISEASE Sh Periop Services Procedures OPTICAL TRACKING SYSTEM INSERTION DEEP BRAIN STIMULATION BILATERAL [address] [place] [address] Phone: Referral ID Status Reason Start Date Expiration Date Visits Requ ested Visits Authorized [id number] Closed 1 1 Encounter Details Date Type Department Care Team Description 09/09/2014 [facility] 09/10/2014 Simone Snider MD Care XX RESIGNED XX [address] [place] [address] [place] [id number] Social History Tobacco Use Types Packs/Day Years [...] APRN CNP - 09/10/2014 9:19 AM CDT [facility] Discharge Summary Neurosurgery Date of Admission: 09/09/2014 [...] up with further consultation recommendations. Rachel Cuadra [facility] [address] [place] [address] Pager [phone] Significant Results and Procedures NONE Pending Results [...] other recreational vehicles Call my office at [phone] for increasing redness, swelling or pus draining [...] deep brain stimulator placement vitamin D (ERGOCALCIFEROL) 31961 UNIT capsule Take 1 capsule (50,000 Units) [...] encounter Discharge Instructions Discharge Rachel Muñoz APRN GLUE SPRAYER - 09/10/2014 9:19 AM CDT Discharge instructions: No lifting of more than 10 pounds until follow up visit as scheduled Ok to walk as tolerated, avoid bedrest. Ok to use ice to areas. No contact sports until after follow up visit No high impact activities such as; running/jogging, Biking, snowmobile or 4 miller riding or any other recreational vehicles Call my office at [phone] for increasing redness, swelling or pus draining [...] Take 1 capsule 4 capsule 2 08/2602/12/2015 58805 UNIT (50,000 Units) by capsuleIndications: Vitamin mouth [...] Thomas MD - 08/25/2014 12:38 PM CDT [address] [address] Dept: [phone] PRE-OP EVALUATION: Today's date: 08/25/2014 Andrew Poly (: 1955) presents for pre-operative evaluation assessment as requested by . He requires evaluation and anesthesia risk assessment prior to undergoing surgery/procedurefor treatment of Parkinson's . Proposed procedure: Deep brain stimulator implant Date of Surgery/ Procedure: 09/09& Time of Surgery/ Procedure: 529 Hospital/Surgical Facility: [facility] Primary Physician: Lurdes Thomas Type of Anesthesia [...] cardiovascular risks for perioperative complications such as (ME, PE, VFib and 3?? AV Block): No [...] evaluation report is provided to requesting physician. [facility] Preop Guidelines documented in this encounter Nursing [...] care (reference Craniotomy/Craniectomy/Cranioplasty (Adult) CPG). Outcome: Improving [phone] Neuro: slight tremors hands, would freeze at times with walking/transfer otherwise intact as pre hospitalization per pt. CV: Nicardipine weaned to off keeping SB/P 90-140. GI Eating well. U/O voiding. Discharge instructions reviewed and given, see paper sheets. Discharged with to [facility] with w/cand volunteer Plan of Care [...] brain stimulator placement SURGEON: Gonzalez Rowland MD Coffee Grinder: Arline Hutson NP 59 yo man with [...] eda holes were made with the 14mm quality assistant drill over the markedbony entry points. The [...] microelectrode were inserted at 15mm above target, [id number] and impedences confirmed <400kohms. I began advancing [...] effects. The decisionwas made to insert a [employer] INTELL[employer] INTERNATIONAL[employer]onic 3389 macroelectrode with the distal 0 contact [...] The decision was made to insert a [employer] INTE[employer]NATIONAL[employer]onic 3389 macroelectrode with the distal 0 contact [...] 8:20 CDT AM CDT Gonzalez Rowland MD [facility] POCT Performing Organization Address City/State/ZIP Code Phon [...] stimulator leads. LOGAN GUILLERMO MD Arline Peñaloza ANGIOGRAPHY NURSE GLUE SPRAYER IMG CT ORDERABLES Hemoglobin (09/09/2014 6:10 AM CDT) P athologist Signature Hemoglobin 14.8 13.3 - 17.7 [facility] g/dL [facility] Specimen Anatomical Collection Method Collection Time Receive d Time (Source) Location / / Volume Laterality Blood specimen 09/09/2014 6:10 AM 015 6:13 (specimen) CDT AM CDT Jacquie Coughlin LAB - BLOOD ORDERABLES Performing Organization Address City/State/ZIP Code Phon e Number [facility] [address], [place] [address] [facility] [address] [place] [address] Potassium (09/09/2014 6:10 AM CDT) athologist Signature Potassium 3.4 3.4 - 5.3 [place] mmol/L [facility] Specimen Anatomical Collection Method Collection Time Receive d Time (Source) Location / / Volume Laterality Blood specimen 09/09/2014 6:10 AM 015 6:13 (specimen) CDT AM CDT Jacquie Coughlin LAB - BLOOD ORDERABLES Performing Organization Address City/State/ZIP Code Phon e Number [facility] [address] [place] [address] [facility] [address] [place] [address] documented in this encounter Visit Diagnoses Diagnosis [...] Volume Adjustment - Provider: Millicent Enciso APRN GEOTECHNICAL DEPARTMENT MANAGER)1020 (New Bag - Provider: Millicent Enciso APRN GEOTECHNICAL DEPARTMENT MANAGER)1059 (Anesthesia Volume Adjustment - Provider: Millicent Enciso APRN GEOTECHNICAL DEPARTMENT MANAGER) at 75-100 mL/hr, Intravenous, CONTINUOUS , UNLESS [...] RN) 0.3-0.5 mg, Intravenous, EVERY 30 MIN MO N, Starting 09/09/14 at 1209, Until Mon09/10/14 [...] (New Bag - Provider: Millicent Enciso APRN GEOTECHNICAL DEPARTMENT MANAGER - Comment: surgeon and MDA aware of infusion starting)0850 (Rate/Dose Change - Provider: Millicent Enciso APRN GEOTECHNICAL DEPARTMENT MANAGER)0853 (Rate/Dose Change - Provider: Millicent Enciso APRN GEOTECHNICAL DEPARTMENT MANAGER) CONTINUOUS PRN, Starting on Mon09/09/14 at 0844, Anesthesia Intra-op 0900 (Rate/Dose Change - Provider: Millicent Enciso APRN GEOTECHNICAL DEPARTMENT MANAGER)0915 (Rate/Dose Change - Provider: Millicent Enciso APRN GEOTECHNICAL DEPARTMENT MANAGER)0930 (Rate/Dose Change - Provider: Millicent Enciso APRN GEOTECHNICAL DEPARTMENT MANAGER)0945 (Rate/Dose Change - Provider: Millicent Enciso APRN GEOTECHNICAL DEPARTMENT MANAGER) 1000 (Rate/Dose Scott ge - Provider: Millicent Enciso APRN GEOTECHNICAL DEPARTMENT MANAGER)1018 (Rate/Dose Change - Provider: Millicent Enciso APRN GEOTECHNICAL DEPARTMENT MANAGER)1025 (Rate/Dose Change - Provider: Millicent Enciso APRN GEOTECHNICAL DEPARTMENT MANAGER)1030 (Rate/Dose Change - Provider: Millicent Enciso APRN [...] Rowland) PRN, Starting 09/09/14 at 0858, Intra-procedure xnqincki-kqwlicditf-fbckxxrev-calcium (TISSEEL) topical solu tion (CANCELED) 0859 (Given - Provider: Gonzalez Rowland)0900 (Given - Provider: Gonzalez Rowland)0901 (Given - Provider: Gonzalez Rowland)0921 (Given - Provider: Gonzalez Rowland)0943 (Given - Provider: Gonzalez Rowland) PRN, Starting 09/09/14 at 0859, Intra-procedure documented in this encounter Care Teams Desktop Administrator Relationship Specialty Start Date End Date Lurdes Thomas MD PCP - General Internal Medicine 06/11/14 12/16/20 documented as of this encounter
--- OUTSIDE RECORDS SUMMARY | 2022-01-20 12:42 | XMS_ITS | Encounter Summary ---
:1955 Author Organization [place] Address [address] [facility] [address] Care Team Providers Name Role Phone Lurdes Thomas MD Primary Care Provider [phone] Encounter Details Date Type Department Care Team Description 10/09/2014 Medical Correspondence [facility] Scan, LETTER FROM [facility], Non-Provider NIECY COOPER, Health Info Elicia CONTRERAS MD-09/20 Srvcs [address] [facility] [place] [address] Social History Tobacco Use Types Packs/Day [...] on filedocumented in this encounter Care Teams Court Security Officer Relationship Specialty Start Date End Date Lurdes Thomas MD PCP - General Internal Medicine 06/11/14 12/16/20 documented as of this encounter
--- OUTSIDE RECORDS SUMMARY | 2022-01-20 12:42 | XMS_ITS | Encounter Summary ---
:1955 Author Organization [place] Address [address] [facility] [place] [address] Care Team Providers Name Role Phone Lurdes Thomas MD Primary Care Provider [phone] Reason for Visit Reason Comments Neurologic Problem Staple Removal Encounter Details Date Type Department Care Team Description 09/22/2014 Office Visit [facility] Rachel Cuadra, CHAIR PAD MAKER HEAT AND VENT AIRCRAFT MECHANIC [facility] [address] [place] [address] S/P deep brain Neurosurgery Clinic Arline Peñaloza, MARISOL HEAT AND VENT AIRCRAFT MECHANIC [address] [place] [address] stimulator placement Vivian (Primary Dx) [address] [address] Social History Tobacco Use Types [...] swelling. [facility] [place] [address] Pager [phone] Mony Meraz 09/22/2014 10:30 AM CDT Andrew [...] imary documented in this encounter Care Teams Chief Deputy Clerk/Bailiff Relationship Specialty Start Date End Date Lurdes Thomas MD PCP - General Internal Medicine 06/11/14 12/16/20 documented as of this encounter
--- OUTSIDE RECORDS SUMMARY | 2022-01-20 12:42 | XMS_ITS | Encounter Summary ---
:1955 Author Organization [place] Address [address] [place] [place] [address] Care Team Providers Name Role Phone Lurdes Thomas MD Primary Care Provider [phone] Reason for Visit Auth/Cert - Closed Specialty Diagnoses / Procedures Referred By Contact Refer red To Contact Surgery Diagnoses PARKINSONS DISEASE Sh Periop Services Procedures IMPLANT PULSE GENERATOR SUBCUTANEOUS [address] [place] [address] Phone: Referral ID Status Reason Start Date Expiration Date Visits Requ ested Visits Authorized [id number] Closed 1 1 Encounter Details Date Type Department Care Team Description 09/16/2014 Anesthesia Event [facility] Jacquie Coughlin ANESTHESIOLOGY [address] [place] [id number] Simone PeriOP Ser Rogelio Gee MD [facility] [address] [place] [id number] [address] [place] [...] EXTENSION AND RIGHT INFRACLAVICULAR PULSE GENERATOR PLACEMENT ([employer]) Anesthesia type: General, ETT Post Op Diagnosis: [...] Arline Hutson APRN CNP vitamin D (ERGOCALCIFEROL) 17553 UNIT capsule Take 1 capsule (50,000 Units) [...] 1900 04/12/10 Lurdes Thomas MD No current [facility]-ordered facility-administered medications on file. No [...] results for input(s): INR in the last 84427 hours. Invalid input(s): APTT RECENT LABS: ECG: [...] benefits and alternatives discussed with: patient or congressional representative. . History & Physical Review History [...] Intra-op documented in this encounter Care Teams Dimension Stone Quarry Supervisor Relationship Specialty Start Date End Date Lurdes Thomas MD PCP - General Internal Medicine 06/11/14 12/16/20 documented as of this encounter
--- OUTSIDE RECORDS SUMMARY | 2022-01-20 12:42 | XMS_ITS | Encounter Summary ---
:1955 Author Organization [place] Address [address] [place] [address]. [place] [address] Care Team Providers Name Role Phone Lurdes Thomas MD Primary Care Provider [phone] Encounter Details Date Type Department Care Team Description 08/08/2020 [facility] [address] [place] [address] Social History Tobacco Use Types Packs/Day [...] on filedocumented in this encounter Care Teams Technical Specialist Relationship Specialty Start Date End Date Lurdes Thomas MD PCP - General Internal Medicine 06/11/14 12/16/20 documented as of this encounter
--- OUTSIDE RECORDS SUMMARY | 2022-01-20 12:42 | XMS_ITS | Clinical Summary ---
:1955 Author Organization [employer] [facility] [place] [address] Care Team Providers Name Role Phone Maria Esther Phan MD Unavailable Shannon Avery MD Unavailable Min, Charanjit Holt MD Unavailable Samantha Stauffer MD Primary Care Provider [phone] Allergies No known active allergies Medications Medication Sig Dispensed Refills Start Date End Date Status amantadine HCL Take 2 Capsules 0 07/15/2020 Active (Gocovri) 137 mg cp24 by mouth at bedtime. cholecalciferol, Take 2,000 units 0 07/26/2016 Active Vitamin D3, 2,000 unit by mouth once tablet daily. citalopram (CELEXA) 10 Take 10 mg by 0 05/24/2020 Active mg tablet mouth once daily in the evening. pravastatin (PRAVACHOL) Take 80 mg by 0 05/28/2018 Active 80 mg tablet mouth at bedtime. ascorbic acid, vitamin Take 500 mg by 0 Active C, (Vitamin C) 500 mg mouth once daily. tablet omeprazole (PRILOSEC) Take 40 mg by 0 Active 40 mg Delayed-Release mouth 2 times capsule daily. carbidopa-levodopa Take 1 Capsule by 0 12/31/2020 Active extended release, 61.25 mouth 4 times mg-245 mg, (Rytary) daily. 61.25-245 mg cpERIndications: Parkinson disease (HC) acetaminophen (TYLENOL) Take 325-650 mg 0 01/12/2021 Active 325 mg tablet by mouth every 4 hours if needed for Headache or Pain. polyethylene glycol Mix 17 g in 0 01/12/2021 Active (MIRALAX; GLYCOLAX) 17 liquid then take g powder for solution by mouth once daily if needed for Constipation. PICK THIS UP OVER THE COUNTER. cyanocobalamin (VITAMIN Take by mouth 0 Active B12) 500 mcg tablet once daily. oxyCODONE (ROXICODONE) Take 1 Tablet (5 8 Tablet 0 03/20/2021 Active 5 mg immediate release mg) by mouth tabletIndications: every 6 hours if Esophageal dysphagia needed for Pain (For moderate pain). ondansetron (ZOFRAN Place 1 Tablet (4 20 Tablet 0 03/22/2021 Active ODT) 4 mg mg) on the tongue disintegrating every 8 hours if tabletIndications: needed for Achalasia, Nausea/Vomiting. Post-operative nausea and vomiting Active Problems Problem Noted Date Cavitary lesion of lung 12/25/2020 Esophageal dysphagia 12/25/2020 Aspiration pneumonia 12/25/2020 Parkinson disease 08/21/2007 Overview: Followed by Dr. Phan Other and unspecified hyperlipidemia 01/02/2006 Encounters Date Type Specialty Care Team Description 01/10/2022 Lab Requisition Kelli Mays MD from Last 3 Months Immunizations Name Administration Dates Next Due Influenza A (H1N1), Inactivated 05/05/2009 Influenza Virus, Unspecified 05/05/2009 Tdap 06/02/2017, 05/22/2007, 01/10/2006 Family History Medical History Relation Name Comments Other Brother Cr Congenital blind ness, oldest Diabetes Father Heart Disease Father CAD, PA age 68-6 9, CABG Hyperlipidemia Father Heart Disease Mother CAD, PA age 70 Hyperlipidemia Mother Stroke Mother Other Sister Kierra Congenital blind ness, Second Relation Name Status Comments Brother Cr Father (Age 78) Mother (Age 77) Sister Kierra Social History Tobacco Use Types Packs/Day Years Used Date Never Smoker Smokeless Tobacco: Never Used Tobacco Cessation: Counseling Given: Yes Alcohol Use Standard Drinks/Week Comments Yes 0 (1 standard drink = 0.6 oz pure alcoho l) 1 per week Alcohol Habits Answer Date Recorded How often do you have a drink containing alcohol? Not asked How many drinks containing alcohol do you have on a typical Not asked day when you are drinking? How often do you have six or more drinks on one occasion? No t asked Comment: 1 per week 03/17/2021 Sex Assigned at Date Recorded Not on file Obstetrics History Last Filed Vital Signs Vital Sign Reading Time Taken Comments Blood Pressure 156/98 03/20/2021 7:41 AM CDT Pulse 79 03/20/2021 7:41 AM CDT Temperature 36.6 ??C (97.8 ??F) 03/20/2021 7:41 AM CDT Respiratory Rate 22 03/20/2021 7:41 AM CDT Oxygen Saturation 94% 03/20/2021 7:41 AM CDT Inhaled Oxygen Concentration - - Weight 68.5 kg (151 lb) 03/18/2021 11:25 AM CDT Height 185.4 cm (6' 1) 03/18/2021 11:25 AM CDT Body Mass Index 19.92 03/18/2021 11:25 AM CDT Plan of Treatment Health Maintenance Due Date Last Done Comments Depression screening for age 12+ 1968 Hepatitis C screening for age 1003/16/1974 18-79 Colonoscopy through age 75 2001 Zoster (shingles) series for age 1003/16/2006 50+ (1 of 2) Lipids for age 45-75 09/05/2013 09/05/2008, 06/30/2008, 04/05/2007, Additional history exists COVID-19 vaccine series (3 - 01/29/2021 08/29/2020, 021 Booster for Pfizer series) Pneumococcal series for age 65+ (1 2021 - PCV) BMI (ht and wt on same day) for 01/15/2022 01/15/2021 age 18+ Influenza for age 65+ 01/20/2022 05/05/2009, 05/05/2009 Tetanus booster 06/02/2027 06/02/2017, 05/22/2007, 01/10/2006 Tdap Completed 06/02/2017, 05/22/2007, 01/10/2006 Procedures Procedure Name Priority Date/Time Associated Diagnosis Comme nts LAB TRACKING EVENT Routine 01/10/2022 8:52 AM CDT PATH TISSUE EXAM Routine 01/10/2022 8:45 AM Resul ts for this CDT procedure are i n the results section. from Last 3 Months Results LAB TRACKING EVENT (01/10/2022 8:52 AM CDT) Specimen Anatomical Collection Method Collection Time Receive d Time (Source) Location / / Volume Laterality Other (Other) Client Collect / 01/10/2022 8:52 AM 12/21 4:53 Unknown CDT PM CDT Kelli Mays MD LAB BILL ONLY Performing Organization Address City/State/ZIP Code Phon e Number [facility] [address] [place] [address] LABORATORY-CENTRAL 2000 LABORATORY PATH TISSUE EXAM (01/10/2022 8:45 AM CDT) Component Value Ref Test Analysis Performed At [facility] Method Time Signature Case Report Pathology Report ?Case: [id number] ? 01/11/2022 CATIE Authorizing Provider: ??Kelli Johnson MD ?Collected: ? 01/10/2022 0845 ? 1:20 PM HEALTH Ordering Location: ? [facility] ?Received: ?01/10/2022 1733 ? CDT KAMILA CRAWFORD Pathologist: ? Fer Zambrano MD ? ENTRAL Specimen: ?Ileostomy ? LABORATORY Final A) ILEOSTOMY, EXCISION: 01/11/2022 [facility]IN A Electronically Diagnosis 1. Ileo-cutaneous anastomosi s with reactive changes consistent with ileostomy 1:20 PM HEALTH signed by 2. Portion of colon with no diagnostic abnormalities CDT LABORATORY-C Juan Manuel, 3. Negative for dysplasia and malignancy JULIETTE Monroe MD on LABORATORY 01/11/2022 at 1:20 PM Clinical Mr. Pang is a 01/11/2022 [facility] Information 66 y.o. male with 1:20 PM HEALTH history of CDT LABORATORY-C ischemic colitis, ENTRAL status post right LABORATORY hemicolectomy ([id number]) undergoing ileostomy takedown. Gross A) Received in formalin, lab eled with the patient's name and end ileostomy, is a portion of colon measuring 6.0 cm in length by 3.0 cm in diameter with two opposing ends stapled. The serosa displays 01/11/2022 [facility] Description an annular stoma measuring 3 .0 x 2.5 cm with a thin rim of funez- brown skin. The soft tissue margin surrounding the stoma is inked blue. The mucosa is red-brown within normal folds. No discrete lesion is identified. 1:20 PM HEALTH CDT LABORATORY-C Bonsai Culturist sections are submitted: ENTRAL 1. 2 opposing resection margins, en face LABORATORY 2. Stoma TTP 01/10/2022 Microscopic The final diagnosis is based on microscopic examination of appropriate sections of all specimens. 01/11/2022 OBDULIA WANG Description 1:20 PM HEALTH CDT LABORATORY-C ENTRAL LABORATORY Additional 01/11/2022 [facility] Information Interpreted at [facility], Central Laboratory - [address], [place] [address] 1:20 PM HEALTH CDT LABORATORY-C ENTRAL LABORATORY Specimen Anatomical Collection Method Collection Time Receive d Time (Source) Location / / Volume Laterality Other ILEOSTOMY FLUID 01/10/2022 8:45 AM 2021 5:33 SAMPLE / Unknown CDT PM CDT Kelli Mays MD PATHOLOGY/CYTOLOGY Performing Organization Address City/State/ZIP Code Phon e Number [facility] [address] [place] [address] LABORATORY-CENTRAL 2000 LABORATORY from Last 3 Months Insurance Payer Benefit Plan / Subscriber ID Effective Dates Phone Addre ss Type Group BLUE [employer]OSS BLUE [employer]OSS OF [id number] 2014-Present [address] [address] [place] [address] [address] (Home) [place] 550 19 Advance Directives Latest Code Status on File Code Status Date Activated Date Inactivated Comments Full Code 03/18/2021 11:01 AM 03/20/2021 5:01 PM Code Status Discussion: Not Discussed Full Code 12/31/2020 12:12 PM 01/13/2021 12:25 PM Code Status Discussion: Per Existing Order Full Code 12/25/2020 7:47 PM 12/31/2020 12:05 PM Code Status Discussion: Discussed Care Teams Sales Estimator Relationship Specialty Start Date End Date Samantha Stauffer MD PCP - General Family Practice 12/27/201999 [place] [address] Maria Esther Phan MD Neurology Neurology 12/27/20 [address] [place] [address] Shannon Avery MD Hospitalist Pulmonary Medicine 12/27/[address] [place] [id number] Charanjit Gray MD Hospitalist Gastroenterology 12/27/20 [address] [facility] [address] [place], [place] [address]
--- OUTSIDE RECORDS SUMMARY | 2022-01-20 12:42 | XMS_ITS | Encounter Summary ---
:1955 Author Organization [place] Address [address] [place] [address]. [place] [address] Care Team Providers Name Role Phone Lurdes Thomas MD Primary Care Provider Reason for Visit Reason Comments Recheck Medication Encounter Details Date Type Department Care Team Description 02/12/2015 Office Visit [facility] Lurdes Thomas Back pain (Primary Dx); Uzair Laughlin MD Hyperlipidemia LDL goal < 130; 1440 [email or web address] Prediabetes; [place] [address] [place] Vitamin D deficiency; [phone] 8682 [facility] Erectile d ysfunction; RD Screening for colon cancer; [place], [place] Screening for p rostate cancer [address] Social History Tobacco Use Types Packs/Day Years [...] list, Allergies, and Medical/Social/Surgical histories reviewed in [facility] andupdated as appropriate. OBJECTIVE: BP 100/62 [...] annual visit and as needed Lurdes Thomas [facility] UZA[facility] documented in this encounter Nursing Notes [...] Signature PSA 0.50 0 - 4 ug/L [facility] Specimen Anatomical Collection Method Collection Time Receive d Time (Source) Location / / Volume Laterality Blood specimen 02/12/2015 10:25 5 (specimen) AM CDT 10:30 AM CDT Lurdes Thomas MD LAB - BLOOD ORDERABLES Performing Organization Address City/State/ZIP Code Phon e Number [facility] [address] [address] [facility] [address] [address], [place] [phone] Vitamin D Deficiency (02/12/2015 10:25 AM CDT) P athologist Signature Vitamin D 29 20 - 75 [facility] Deficiency ug/L [place] [facility] screening [facility] Comment: Season, race, dietary intake, and treatm ent affect the concentration of 93-vdhsgsl-Kaxmaxm D. Values may decrea se during winter [...] Organization Address City/State/ZIP Code Phon e Number [facility] [address] [place] [address] [facility] Glucose (02/12/2015 10:25 AM CDT) athologist Signature Glucose 94 70 - 99 [facility] mg/dL [facility] Specimen Anatomical Collection Method Collection Time Receive d Time (Source) Location / / Volume Laterality Blood specimen 02/12/2015 10:25 5 (specimen) AM CDT 10:30 AM CDT Lurdes Thomas MD LAB - BLOOD ORDERABLES Performing Organization Address City/State/ZIP Code Phon e Number [facility] [address] [place] [address] documented in this encounter Visit Diagnoses Diagnosis [...] prostate documented in this encounter Care Teams Wharfmaster Relationship Specialty Start Date End Date Lurdes Thomas MD PCP - General Internal Medicine 06/11/14 12/16/20 documented as of this encounter
--- OUTSIDE RECORDS SUMMARY | 2022-01-20 12:42 | XMS_ITS | Encounter Summary ---
:1955 Author Organization [place] Address [address] [place] [address]. [place] [address] Care Team Providers Name Role Phone Lurdes Thomas MD Primary Care Provider [phone] Reason for Visit Reason Onset Date [facility] F/U 09/11/2014 Parkinsons Disease, S/P Deep Brain Stimulator Placement, S/P Deep Brain Stimulato r Placement, 09/10/14, 0 Encounter Details Date Type Department Care Team Description 09/11/2014 Telephone [facility] F/U 1440 [facility] MD [place] (Parkinsons Disease, [place] [address] [facility] S/P Deep Brain [phone] [place] Stimulator Placement, 3190 [facility] S/P Deep B rain Stimulator Placement, [place], [place] [address] 09/10/14, 0 ) [phone] (Wo rk) Social History Tobacco Use Types [...] with information to call me back. Maggie cognos developer Nurse Telephone Encounter - Kiara Oviedo RN - 09/11/2014 12:52 PM CDT ED / Discharge Outreach Protocol Patient Contact Attempt # 1 Was call answered? No. Left message on voicemail with information to call me back. Telephone Encounter - Josy Garza - 09/11/2014 10:53 AM CDT Please contact patient for In-patient follow up. [phone] (home) None (work) Visit date: 09/10/14 Diagnosis listed:Parkinsons Disease, S/P Deep Brain Stimulator Placement, S/P Deep Brain Stimulator Placement Number of visits in past 12 months:0/1 documented in this encounter Plan of Treatment Not on filedocumented as of this encounter Visit Diagnoses Not on filedocumented in this encounter Care Teams Laser Beam Color Scanner Operator Relationship Specialty Start Date End Date Lurdes Thomas MD PCP - General Internal Medicine 06/11/14 12/16/20 documented as of this encounter
--- OUTSIDE RECORDS SUMMARY | 2022-01-20 12:42 | XMS_ITS | Encounter Summary ---
:1955 Author Organization [place] Address [address] [place] [address]. [place] [address] Care Team Providers Name Role Phone Lurdes Thomas MD Primary Care Provider [phone] Reason for Visit Reason Onset Date Comments Refill Request 04/15/2016 PRAVASTATIN 80MG Encounter Details Date Type Department Care Team Description 04/15/2016 Refill [facility] Eag an Lurdes Thomas Refill Request 1440 [facility] MD [place] (PRAVASTATIN 80MG) [place] [address] [facility] [phone] [address] (Wo rk) Social History Tobacco Use [...] Lurdes Thomas MD - 04/15/2016 4:37 PM CAFE LEAD Mychart sent telling patient cannot continue to fill medications without visit. Lurdes Thomas MD Internal Medicine/Pediatrics LEAD Telephone Encounter - Chanell Villa RN - 04/15/2016 4:30 PM CAFE LEAD Made multiple attempts(LM & MC message) from October advising pt that he is due for an OV. Pt haven't responded. Routing refill request to provider for review/approval because: Hawa given x1 and patient did not follow up, please advise Chanell.Liliam copper tapper Nurse LEAD Telephone Encounter - Genie Mello - 04/15/2016 4:28 PM CST PRAVASTATIN 80MG Last Written Prescription Date: 10/23/2015 Last Fill Quantity: 90, # refills: 1 Last Office Visit with [facility], [facility] [place] or [facility] prescribing provider: 02/12/2015 CHOL 219 11/25/2014 HDL 65 11/25/2014 LDL 123 11/25/2014 TRIG 153 11/25/2014 CHOLHDLRATIO 3.4 11/25/2014 LEAD documented in this encounter Plan of Treatment Not on filedocumented as of this encounter Visit Diagnoses Diagnosis Hyperlipidemia with target LDL less than 130 - Primary Other and unspecified hyperlipidemia documented in this encounter Care Teams Line And Frame Poler Relationship Specialty Start Date End Date Lurdes Thomas MD PCP - General Internal Medicine 06/11/14 12/16/20 documented as of this encounter
--- OUTSIDE RECORDS SUMMARY | 2022-01-20 12:42 | XMS_ITS | Encounter Summary ---
:1955 Author Organization [place] Address [address] [place] [address]. [place] [address] Care Team Providers Name Role Phone Lurdes Thomas MD Primary Care Provider Reason for Referral Medication Prior Authorization (Routine) - Closed Specialty Diagnoses / Procedures Referred By Contact Refer red To Contact Diagnoses Hyperlipidemia with target LDL less than 130 Lurdes Thomas MD [address] [address] Referral ID Status Reason Start Date Expiration Date Visits Requ ested Visits Authorized [id number] Closed Reason for Visit Reason Onset Date Comments Refill Request 10/20/2015 PRAVASTATIN 80MG Encounter Details Date Type Department Care Team Description 10/20/2015 Refill [facility]3] Eag Lurdes Rojas Refill Request 1440 Demian Laughlin MD (PRAVASTATIN 80MG) [place] [address] [facility] [phone] [place] [address] [place] [address] (Wo rk) Social History Tobacco [...] for 6 months. Please advise pt. Maggie automatic nailing machine operator Nurse Telephone Encounter - Julisa Hayden - 10/20/2015 11:53 AM CDT PRAVASTATIN 80MG Last Written Prescription Date: 04/13/2015 Last Fill Quantity: 90, # refills: 1 Last Office Visit with [facility] or [facility] prescribing provider: 02/12/2015 CHOL 219 11/25/2014 HDL 65 11/25/2014 LDL 123 11/25/2014 TRIG 153 11/25/2014 CHOLHDLRATIO 3.4 11/25/2014 documented in this encounter Plan of Treatment Not on filedocumented as of this encounter Visit Diagnoses Diagnosis Hyperlipidemia with target LDL less than 130 - Primary Other and unspecified hyperlipidemia documented in this encounter Care Teams Television Technician Relationship Specialty Start Date End Date Serum, Lurdes [place], MD PCP - General Internal Medicine 06/11/14 12/16/20 documented as of this encounter
--- OUTSIDE RECORDS SUMMARY | 2022-01-20 12:42 | XMS_ITS | Encounter Summary ---
:1955 Author Organization [place] Address [address] [place] [address]. [place] [address] Care Team Providers Name Role Phone Lurdes Thomas MD Primary Care Provider Samantha Stauffer MD Primary Care Provider [phone] Encounter Details Date Type Department Care [...] on filedocumented in this encounter Care Teams Culture Media Laboratory Assistant Relationship Specialty Start Date End Date Lurdes Thomas MD PCP - General Internal Medicine 06/11/14 12/16/20 Samantha Stauffer MD PCP - General Family Medicine 12/17/[address] [address] documented as of this encounter
--- OUTSIDE RECORDS SUMMARY | 2022-01-20 12:42 | XMS_ITS | Encounter Summary ---
:1955 Author Organization [place] Address [address] [place] [address]. [place] [address] Care Team Providers Name Role Phone Lurdes Thomas MD Primary Care Provider Reason for Visit Reason Onset Date Comments Refill Request 11/17/2014 PRAVASTATIN 80MG Encounter Details Date Type Department Care Team Description 11/17/2014 Refill [facility] Eag Lurdes Rojas Refill Request 1440 [facility] MD [place] (PRAVASTATIN 80MG) [place] [address] [facility] [phone] [place] [address] (Wo rk) Social History Tobacco Use [...] # refills: 0 Last Office Visit with [facility] primary care provider: 08/25/2014 CHOL 178 09/20/2012 HDL 66 09/20/2012 LDL 95 09/20/2012 TRIG 83 09/20/2012 CHOLHDLRATIO 2.7 09/20/2012 documented in this encounter Plan of Treatment Not on filedocumented as of this encounter Visit Diagnoses Diagnosis Hyperlipidemia LDL goal < 130 - Primary Other and unspecified hyperlipidemia documented in this encounter Care Teams Athletic Equipment Custodian Relationship Specialty Start Date End Date Lurdes Thomas MD PCP - General Internal Medicine 06/11/14 12/16/20 documented as of this encounter
--- OUTSIDE RECORDS SUMMARY | 2022-01-20 12:42 | XMS_ITS | Encounter Summary ---
:1955 Author Organization [place] Address [address] [place] [address]. [place] [address] Care Team Providers Name Role Phone Lurdes Thomas MD Primary Care Provider [phone] Samantha Stauffer MD Primary Care Provider [phone] Encounter Details Date Type Department Care [...] on filedocumented in this encounter Care Teams Tool And Die Manager Relationship Specialty Start Date End Date Lurdes Thomas MD PCP - General Internal Medicine 06/11/14 12/16/20 Samantha Stauffer MD PCP - General Family Medicine 12/17/[address] [address] documented as of this encounter
--- OUTSIDE RECORDS SUMMARY | 2022-01-20 12:42 | XMS_ITS | Encounter Summary ---
:1955 Author Organization [place] Address [address] [place] [address]. [place] [address] Care Team Providers Name Role Phone Lurdes Thomas MD Primary Care Provider Reason for Visit Reason Onset Date Comments Outreach 05/30/2015 [facility] call not require d FIT ordered,[facility] Encounter Details Date Type Department Care Team Description 05/30/2015 Telephone [facility] Lurdes Thomas h ([facility] call not [facility] Laughlin MD required FIT MANAGEMENT DEPT [facility] ordered,cnt) [address] [place] [address] [address] [place] [address] [address] [phone] [place], [place] [address] (Wo rk) Social History Tobacco Use [...] on filedocumented in this encounter Care Teams Supervisory Air Intercept Controller Relationship Specialty Start Date End Date Lurdes Thomas MD PCP - General Internal Medicine 06/11/14 12/16/20 documented as of this encounter
--- OUTSIDE RECORDS SUMMARY | 2022-01-20 12:42 | XMS_ITS | Encounter Summary ---
:1955 Author Organization [place] Address [address] [facility] [place] [address] Care Team Providers Name Role Phone Lurdes Thomas MD Primary Care Provider [phone] Encounter Details Date Type Department Care Team Description 09/11/2014 Telephone [facility] Nurse Eladia Muñoz, RN [facility]visors [address] [place] [address] Social History Tobacco Use Types Packs/Day [...] bandages are is very itchy. Will page aviation program manager for [facility] page work over rig operator for [facility] to have aviation program manager Dr. Rowland call Natasha @ [phone]. Did not complete infection screen for ebola. [...] as expected or comes out ? NO quality engineer medical device (pump, infusion catheter) damaged or not functioning [...] least 15 seconds or use a hand fishing rod trimmer before and after touching the wound area. [...] filedocumented in this encounter Care Teams Supervisor Counseling And Guidance Relationship Specialty Start Date End Date Lurdes Thomas MD PCP - General Internal Medicine 06/11/14 12/16/20 documented as of this encounter
--- OUTSIDE RECORDS SUMMARY | 2022-01-20 12:42 | XMS_ITS | Encounter Summary ---
:1955 Author Organization [place] Address [address] [place] [address] Care Team Providers Name Role Phone Lurdes Thomas MD Primary Care Provider [phone] Reason for Visit (Routine) - Closed Specialty Diagnoses / Procedures Referred By Contact Refer red To Contact Radiology / Radiology. Diagnoses R#NA, Written Order, SB Doris, Not a read and call. Sh Ct Scan Procedures CT LUMBAR SPINE WO [address] [place] [address] Phone: Referral ID Status Reason Start Date Expiration Date Visits Requ ested Visits Authorized [id number] Closed 08/31/2015 08/30/2016 1 1 Encounter Details Date Type Department Care Team Description 08/31/2015 Hospital Encounter [facility] [place], So re low back pain [facility] Maria Esther Amaro MD [address] [address] [place] [id number] Social History Tobacco Use Types Packs/Day Years [...] Lumbago documented in this encounter Care Teams Umbrella Tipper Machine Relationship Specialty Start Date End Date Lurdes Thomas MD PCP - General Internal Medicine 06/11/14 12/16/20 documented as of this encounter
--- OUTSIDE RECORDS SUMMARY | 2022-01-20 12:42 | XMS_ITS | Encounter Summary ---
:1955 Author Organization [place] Address [address] [place] [address] Care Team Providers Name Role Phone Lurdes Thomas MD Primary Care Provider [phone] Reason for Visit Auth/Cert - Closed Specialty Diagnoses / Procedures Referred By Contact Refer red To Contact Surgery Diagnoses PARKINSONS DISEASE Sh Periop Services Procedures IMPLANT PULSE GENERATOR SUBCUTANEOUS [address] [place] [address] Phone: Referral ID Status Reason Start Date Expiration Date Visits Requ ested Visits Authorized [id number] Closed 1 1 Encounter Details Date Type Department Care Team Description 09/16/[address] [facility] Gonzalez Rowland PreOP/Phase Liliam Snider II XX RESIGNED XX [address] [address] [place] [address] [place] [address] [phone] Social History Tobacco Use Types Packs/Day Years [...] this encounter Discharge Summaries Arline Hutson APRN STRIPPER SHOVEL OPERATOR - 09/16/2014 8:46 AM CDT Physician Discharge Summary Patient ID: Andrew Pang [id number] 59 year old 1955 Admit date: 09/16/2014 Discharge date and time: 09/16/2014 Admitting Physician: Gonzalez Rowland MD Discharge Physician: Arline Hutson [facility] Admission Diagnoses: PARKINSONS DISEASE Discharge Diagnoses: Parkinsons [...] deep brain stimulator placement vitamin D (ERGOCALCIFEROL) 89415 UNIT capsule Take 1 capsule (50,000 Units) [...] Deep Brain Stimulator Postop Instructions Dr. Rowland [phone] 1. Ok to shower after 3 days. [...] have aDBS and the contact number for [employer] should be provided. ?? Some procedures require that the DBS system is turned off. [employer] can also instruct and guide regarding this. ?? You have been given a patient textile machine maintenance mechanic that can check that the stimulator is [...] Take 1 capsule 4 capsule 2 08/2602/12/2015 77196 UNIT (50,000 Units) by capsuleIndications: Vitamin mouth every 7 D deficiency disease days documented as of this encounter H&P Notes Corine Alexander - 09/11/2014 7:49 AM CDT The purpose of this note is to make the H&P performed in the clinic within the last 30 days available in the hospital surgical encounter. Source Note - Lurdes Thomas MD - 08/25/2014 12:38 PM CDT [address] [address] Dept: [phone] PRE-OP EVALUATION: Today's date: 08/25/2014 Andrew Pang (: 1955) presents for pre-operative evaluation assessment as requested by . He requires evaluation and anesthesia risk assessment prior to undergoing surgery/procedurefor treatment of Parkinson's . Proposed procedure: Deep brain stimulator implant Date of Surgery/ Procedure: 09/09& Time of Surgery/ Procedure: 529 Hospital/Surgical Facility: [facility] Primary Physician: Lurdes Thomas Type of [...] cardiovascular risks for perioperative complications such as (PA, PE, VFib and 3?? AV Block): No [...] evaluation report is provided to requesting physician. [facility] Preop Guidelines documented in this encounter Nursing [...] bilateral lead extensions SURGEON: Gonzalez Rowland MD Professional Services Manager: Arline Hutson NP PROCEDURE: The patient was [...] Provider: Pavel Miner) Routine, 2 g, Intravenous, PRE-OP/PRE-NY OCEDURE, Starting on Mon09/16/14 at 0638, For [...] Post-procedure documented in this encounter Care Teams Beer Coil Cleaner Relationship Specialty Start Date End Date Lurdes Thomas MD PCP - General Internal Medicine 06/11/14 12/16/20 documented as of this encounter
--- OUTSIDE RECORDS SUMMARY | 2022-01-20 12:42 | XMS_ITS | Encounter Summary ---
:1955 Author Organization [place] Address [address] [place] [address]. [place] [address] Care Team Providers Name Role Phone Lurdes Thomas MD Primary Care Provider [phone] Encounter Details Date Type Department Care Team Description 08/29/2020 Immunization [facility] Logan Nelson Vaccination [address] [address] [place] [address] [phone] Social History Tobacco Use Types Packs/Day Years [...] on filedocumented in this encounter Care Teams Clothes Separator Relationship Specialty Start Date End Date Lurdes Thomas MD PCP - General Internal Medicine 06/11/14 12/16/20 documented as of this encounter
--- OUTSIDE RECORDS SUMMARY | 2022-01-20 12:42 | XMS_ITS | Encounter Summary ---
:1955 Author Organization [place] Address [address] [place] [address]. [place] [address] Care Team Providers Name Role Phone Lurdes Thomas MD Primary Care Provider [phone] Reason for Visit Reason Onset Date Comments Prior Auth - Medication 02/12/2015 viagra Encounter Details Date Type Department Care Team Description 02/12/2015 Telephone [facility] Lurdes Oh Prior Auth - Medication 1440 [facility] MD [place] (viagra ) [place] [address] [facility] [phone] [place] [address] (Wo rk) Social History Tobacco Use [...] filedocumented in this encounter Care Teams Manager Trade Marketing Relationship Specialty Start Date End Date Lurdes Thomas MD PCP - General Internal Medicine 06/11/14 12/16/20 documented as of this encounter
--- OUTSIDE RECORDS SUMMARY | 2022-01-20 12:43 | XMS_ITS | Encounter Summary ---
:1955 Author Organization [place] Address [address] [place] [address]. [place] [address] Care Team Providers Name Role Phone Lurdes Thomas MD Primary Care Provider [phone] Reason for Visit (Routine) - Closed Specialty Diagnoses / Procedures Referred By Contact Refer red To Contact Respiratory Therapy Diagnoses Hgb 15.4 drawn on 06/11/14 Rh Respiratory Ther Procedures PULMONARY FUNCTION TEST [address] [place] [address] Phone: Referral ID Status Reason Start Date Expiration Date Visits Requ ested Visits Authorized [id number] Closed 07/04/2014 07/04/2015 1 1 Encounter Details Date Type Department Care Team Description 07/08/2014 Hospital Encounter [facility] Lurdes Riosinson disease (H); Tere Laughlin MD SOB (shortness of breath) Therapy [facility] [address] [place], [place] [address] [place] [address] [phone] [place] [address] Social History Tobacco Use Types [...] Take 1 capsule 8 capsule 0 06/1208/01/2014 36497 UNIT (50,000 Units) by capsuleIndications: mouth every [...] 06/11/14. July 08, 2014.12:39 PM Shemar Hoang NO DUTY MANAGER documented in this encounter Procedure Notes Juice Chanel MD - 07/09/2014 1:16 PM CSTAssociated Order(s): PULMONARY FUNCTION TEST Please see medical chart for graphs and statistics related to this report. REFERRING PHYSICIAN: Deidre Pang MEMBERSHIP ADMINISTRATOR: Shemar Hoang DIAGNOSIS: SOB, Parkinson's disease HEIGHT: [...] CHANEL MD MT: Name: DEIDRE PANG Account: [id number] : 1955 Procedure Date: 07/08/2014 Document: [id number] cc: Lurdes Thomas MD documented in this encounter Plan of Treatment Pending Results Name Type Priority Associated Diagnoses Date/Ti me PULMONARY FUNCTION TEST PFT Routine Parkinso n disease (H) 07/08/2014 11:58 AM CASINO DUTY MANAGER PROCEDURE SOB (shortness of breath) documented as of this encounter Procedures Procedure Name Priority Date/Time Associated Diagnosis Comme nts PFT GENERAL LAB 07/28/2014 1:58 PM Result s for this TESTING CDT procedure are i n the results section. PFT GENERAL LAB Routine 07/08/2014 11:58 AM Parkinson disease TESTING CASINO DUTY MANAGER (H) SOB (shortness of breath) PULMONARY FUNCTION 07/08/2014 12:00 AM TEST - HIM SCAN CASINO DUTY MANAGER documented in this encounter Results PULMONARY FUNCTION TEST (07/28/2014 1:58 PM CDT) Transcriptions Juice Chanel MD - 07/09/2014 1:16 PM CST Please see medical chart for graphs and statistics related to this report. REFERRING PHYSICIAN: Deidre Pang MEMBERSHIP ADMINISTRATOR: Shemar Hoang DIAGNOSIS: SOB, Parkinson's disease HEIGHT: [...] CHANEL MD MT: Name: DEIDRE PANG Account: [id number] : 1955 Procedure Date: 07/08/19 Document: [id number] cc: Lurdes Thomas MD Juice Chanel MD PFT ORDERABLES PULMONARY FUNCTION TEST - HIM SCAN (07/08/2014 12:00 AM CASINO DUTY MANAGER) Specimen (Source) Anatomical Location Collection Method / Collectio n Time Received Time / Laterality Volume 07/08/2014 Narrative This result has an attachment that is no t available. Provider Scan PFT ORDERABLES documented in this encounter Visit Diagnoses Diagnosis Parkinson disease (H) Paralysis agitans SOB (shortness of breath) Shortness of breath documented in this encounter Care Teams Ticket Collector Relationship Specialty Start Date End Date Lurdes Thomas MD PCP - General Internal Medicine 06/11/14 12/16/20 documented as of this encounter
--- OUTSIDE RECORDS SUMMARY | 2022-01-20 12:43 | XMS_ITS | Encounter Summary ---
:1955 Author Organization [place] Address [address] [place] [address]. [place] [address] Care Team Providers Name Role Phone Lurdes Thomas MD Primary Care Provider [phone] Reason for Visit (Routine) - Closed Specialty Diagnoses / Procedures Referred By Contact Refer red To Contact Cardiology Procedures Zzrh Electrocardiology EKG STRESS NM LEXISCAN [address] [place], [place] [address] Phone: Referral ID Status Reason Start Date Expiration Date Visits Requ ested Visits Authorized [id number] Closed 06/19/2014 06/19/2015 1 1 Encounter Details Date Type Department Care Team Description 06/25/2014 Hospital Encounter [facility] Lurdes Thomas SOB (shortness of Electrocardiolgy MD [place] breath) [address] [facility] [address] [place] [address] [place] [address] Social History Tobacco Use Types [...] Take 1 capsule 8 capsule 0 06/1208/01/2014 83113 UNIT (50,000 Units) by capsuleIndications: mouth every [...] adverse reactions to catarino injection. Rachel Segura GE GAME DIRECTOR documented in this encounter Plan of Treatment Not on filedocumented as of this encounter Procedures Procedure Name Priority Date/Time Associated Diagnosis Comme nts NM MPI WITH Routine 06/25/2014 1:06 PM SOB (shortness of Resu lts for this LEXISCAN BRIDGE GAME DIRECTOR breath) procedure are i n the results section. documented in this encounter Results NM Lexiscan stress test (06/25/2014 1:06 PM BRIDGE GAME DIRECTOR) Anatomical Region Laterality Modality Chest Nuclear Medicine Specimen (Source) Anatomical Location Collection Method / Collectio n Time Received Time / Laterality Volume Narrative 06/26/2014 10:06 AM BRIDGE GAME DIRECTOR GATED MYOCARDIAL PERFUSION SCINTIGRAPHY WITH INTRAVENOUS PHARMACOLOGIC [...] (LEXISCAN) 0.4 MG/5ML Given 06/25/2014 11:30 AM BRIDGE GAME DIRECTOR injection Starting on Mon06/25/14 at 1148, For 1 dose, RACHEL SEGURA: cabinet override documented in this encounter Care Teams Exerciser Relationship Specialty Start Date End Date Lurdes Thomas MD PCP - General Internal Medicine 06/11/14 12/16/20 documented as of this encounter
--- OUTSIDE RECORDS SUMMARY | 2022-01-20 12:43 | XMS_ITS | Encounter Summary ---
:1955 Author Organization [place] Address [address] [place] [address]. [place] [address] Care Team Providers Name Role Phone Unavailable Primary Care Provider Unavailable Reason for Visit Reason Onset Date Comments Outreach 04/04/2013 Preventative health screening Encounter Details Date Type Department Care Team Description 04/04/2013 Telephone [facility] Lurdes Rojas Outreach (Preventative [address] [facility] MD [place] health screening) [place] [address] [facility] [employer] [phone] [address] (Wo rk) Social History Tobacco Use [...] Comments: Per patient, he has swtiched to [facility] due to insurance change, [facility]. Outreach Personnel Research Psychologist Charanjit Amaro T MARKETING INTERN documented in this encounter Plan of Treatment Not on filedocumented as of this encounter Visit Diagnoses Not on filedocumented in this encounter
--- OUTSIDE RECORDS SUMMARY | 2022-01-20 12:43 | XMS_ITS | Encounter Summary ---
:1955 Author Organization [place] Address [address] [place] [address]. [place] [address] Care Team Providers Name Role Phone Oli Thomas MD Primary Care Provider [phone] Reason for Visit Reason Comments Breathing Problem Encounter Details Date Type Department Care Team Description 06/11/2014 Office Visit [facility] Oli Thomas SOB (shor tness of breath) (Primary Dx); Uzair Laughlin MD Fatigue; [address] [employer] Vitamin D deficiency disease ; [place] [address] [place] Lower extremity edema; [phone] 8625 [facility] GERD (ghazala roesophageal reflux disease) [place], [place] [address] Social History Tobacco Use [...] Comments Blood Pressure 114/70 06/11/2014 8:04 AM AGRICULTURAL EDUCATION INSTRUCTOR Pulse 99 06/11/2014 8:04 AM AGRICULTURAL EDUCATION INSTRUCTOR Temperature 36.9 ??C (98.5 ??F) 06/11/2014 8:04 AM AGRICULTURAL EDUCATION INSTRUCTOR Respiratory Rate - - Oxygen Saturation 94% 06/11/2014 8:04 AM AGRICULTURAL EDUCATION INSTRUCTOR Inhaled Oxygen Concentration - - Weight 95.6 kg (210 lb 12.8 oz) 06/11/2014 8:04 AM AGRICULTURAL EDUCATION INSTRUCTOR Height 186.7 cm (6' 1.5) 06/11/2014 8:04 AM AGRICULTURAL EDUCATION INSTRUCTOR Body Mass Index 27.43 06/11/2014 8:04 AM AGRICULTURAL EDUCATION INSTRUCTOR documented in this encounter Patient Instructions Patient InstructionsSerumOli MD - 06/11/2014 9:03 AM AGRICULTURAL EDUCATION INSTRUCTOR 1. Labs today: liver function, kidney function, blood counts, vitamin D levels 2. You will be contacted to set up the stress test and echocardiogram (ultrasound) of the heart CULTURAL EDUCATION INSTRUCTOR documented in this encounter Progress Notes Oli [...] likely in July. Insurance recently changed and [facility]. Was seen at [facility] last year. Reviewed labs in care [...] list, Allergies, and Medical/Social/Surgical histories reviewed in [facility] andupdated as appropriate. OBJECTIVE: BP 114/70 Pulse [...] with Provider - 1 month Oli Thomas [facility] CULTURAL EDUCATION INSTRUCTOR documented in this encounter Nursing Notes Tamy [...] using cuff size: large Tamy Leahy LPN CULTURAL EDUCATION INSTRUCTOR documented in this encounter Miscellaneous Notes Addendum Note - Oli Thomas MD - 06/12/2014 4:46 PM AGRICULTURAL EDUCATION INSTRUCTOR Addended by: OLI THOMAS on: 06/12/2014 04:46 PM Modules accepted: Orders CULTURAL EDUCATION INSTRUCTOR documented in this encounter Plan of Treatment Not on filedocumented as of this encounter Procedures Procedure Name Priority Date/Time Associated Comments Diagnosis CBC WITH PLATELETS & Routine 06/11/2014 9:05 AM SOB (shortness of Results for this DIFFERENTIAL AGRICULTURAL EDUCATION INSTRUCTOR breath) procedure are in Fatigue the results section. VITAMIN D DEFICIENCY Routine 06/11/2014 9:05 AM Vitamin D R esults for this SCREENING AGRICULTURAL EDUCATION INSTRUCTOR deficiency disease procedure are in the results section. COMPREHENSIVE Routine 06/11/2014 9:05 AM SOB (shortness of Res ults for this METABOLIC PANEL AGRICULTURAL EDUCATION INSTRUCTOR breath) procedure are in Fatigue the results Lower extremity section. edema EKG 12-LEAD COMPLETE Routine 06/11/2014 SOB (shortness of Re sults for this W/READ - CLINICS breath) procedure a re in the results section. documented in this encounter Results NM Lexiscan stress test (06/25/2014 1:06 PM AGRICULTURAL EDUCATION INSTRUCTOR) Anatomical Region Laterality Modality Chest Nuclear Medicine Specimen (Source) Anatomical Location Collection Method / Collectio n Time Received Time / Laterality Volume Narrative 06/26/2014 10:06 AM AGRICULTURAL EDUCATION INSTRUCTOR GATED MYOCARDIAL PERFUSION SCINTIGRAPHY WITH INTRAVENOUS PHARMACOLOGIC [...] (ABNORMAL) Vitamin D Deficiency (06/11/2014 9:05 AM AGRICULTURAL EDUCATION INSTRUCTOR) P athologist Signature Vitamin D 21 (L) 30 - 75 [facility] Deficiency ug/L [place] [facility] screening [facility] Comment: Season, race, dietary intake, and treatm ent affect the concentration of 28-chhfrpf-Dyfmnqg D. Values may decrea se during winter [...] specimen 06/11/2014 9:05 AM 015 9:07 (specimen) AGRICULTURAL EDUCATION INSTRUCTOR AM AGRICULTURAL EDUCATION INSTRUCTOR Oli Thomas MD LAB - BLOOD ORDERABLES Performing Organization Address City/State/ZIP Code Phon e Number [address] [address] [facility] CBC with platelets differential (06/11/2014 9:05 AM AGRICULTURAL EDUCATION INSTRUCTOR) [facility] gist Method Time Signature WBC 4.8 4.0 - [facility] 11.0 CLIN[facility] 10e9/L [facility] RBC Count 5.06 4.4 - 5.9 [facility] 10e12/L [facility] Hemoglobin 15.4 13.3 - [facility] 17.7 g/dL [facility] Hematocrit 46.8 40.0 - [facility] 53.0 % [facility] MCV 93 78 - 100 [place] fl [facility] MCH 30.4 26.5 - [facility] 33.0 pg [facility] MCHC 32.9 31.5 - [facility] 36.5 g/dL [facility] RDW 12.7 10.0 - [facility] 15.0 % [facility] Platelet Count 205 150 - 450 [facility] 10e9/L [facility] Diff Method Automated [place] Method [facility] % Neutrophils 55.7 % [place] [facility] % Lymphocytes 32.6 % [place] [facility] % Monocytes 9.8 % [place] [facility] % Eosinophils 1.5 % [place] [facility] % Basophils 0.4 % [place] [facility] Absolute 2.7 1.6 - 8.3 [facility] Neutrophil 10e9/L [facility] Absolute 1.6 0.8 - 5.3 [facility] Lymphocytes 10e9/L [facility] Absolute 0.5 0.0 - 1.3 [facility] Monocytes 10e9/L [facility] Absolute 0.1 0.0 - 0.7 [facility] Eosinophils 10e9/L [facility] Absolute 0.0 0.0 - 0.2 [facility] Basophils 10e9/L [facility] Specimen Anatomical Collection Method Collection Time Receive d Time (Source) Location / / Volume Laterality Blood specimen 06/11/2014 9:05 AM 015 9:07 (specimen) AGRICULTURAL EDUCATION INSTRUCTOR AM AGRICULTURAL EDUCATION INSTRUCTOR Oli Thomas MD LAB - BLOOD ORDERABLES Performing Organization Address City/State/ZIP Code Phon e Number [facility] [address] [place] [address] (ABNORMAL) Comprehensive metabolic panel (06/11/2014 9:05 AM AGRICULTURAL EDUCATION INSTRUCTOR) Analysis Performed At [facility] logis Time Signature Sodium 139 133 - 144 [place] mmol/L [facility] Potassium 4.7 3.4 - 5.3 [place] mmol/L [facility] Chloride 104 94 - 109 [place] mmol/L [facility] Carbon Dioxide 31 20 - 32 [place] mmol/L [facility] Anion Gap 4 3 - 14 [place] mmol/L [facility] Glucose 102 (H) 70 - 99 [place] mg/dL [facility] Comment: Effective 12/18/2013, the reference range for this assay has changed to reflect new instrumentation/methodology. Urea Nitrogen 21 7 - 30 mg/dL [place] [facility] Comment: Effective 12/18/2013, the reference range for this assay has changed to reflect new instrumentation/methodology. Creatinine 0.82 0.66 - 1.25 [facility] mg/dL [facility] GFR Estimate >90 >60 mL/min/1.7m2 [facility] Non GFR Calc [facility] GFR Estimate If Black >90 >60 mL/min/1.7m2 F [facility] GFR Calc [facility] Calcium 9.1 8.5 - 10.1 mg/dL [place] [facility] Comment: Effective 12/18/2013, the reference range for this assay has changed to reflect new instrumentation/methodology. Bilirubin Total 0.6 0.2 - 1.3 mg/dL [facility] Albumin 4.1 3.4 - 5.0 g/dL [facility] S [facility] Protein Total 7.5 6.8 - 8.8 g/dL [place] CL INICS [facility] Alkaline Phosphatase 106 40 - 150 U/L [facility] ALT 20 0 - 70 U/L [facility] AST 37 0 - 45 U/L [facility] Specimen Anatomical Collection Method Collection Time Receive d Time (Source) Location / / Volume Laterality Blood specimen 06/11/2014 9:05 AM 015 9:07 (specimen) AGRICULTURAL EDUCATION INSTRUCTOR AM AGRICULTURAL EDUCATION INSTRUCTOR Oli Thomas MD LAB - BLOOD ORDERABLES Performing Organization Address City/State/ZIP Code Phon e Number [facility] [address] [place] [address] XR Chest 2 Views (06/11/2014 8:52 AM AGRICULTURAL EDUCATION INSTRUCTOR) Anatomical Region Laterality Modality Chest Computed Radiography Specimen (Source) Anatomical Location Collection Method / Collectio n Time Received Time / Laterality Volume Impressions 06/11/2014 9:24 AM AGRICULTURAL EDUCATION INSTRUCTOR IMPRESSION: ??Negative. CYNTHIA PACE MD Narrative 06/11/2014 9:24 AM AGRICULTURAL EDUCATION INSTRUCTOR XR CHEST 2 VW ??06/11/2014 8:52 AM [...] breath documented in this encounter Care Teams Drying Machine Back Tender Relationship Specialty Start Date End Date Oli Thomas MD PCP - General Internal Medicine 06/11/14 12/16/20 documented as of this encounter
--- OUTSIDE RECORDS SUMMARY | 2022-01-20 12:43 | XMS_ITS | Encounter Summary ---
:1955 Author Organization [place] Address [address] [place] [address]. [place] [address] Care Team Providers Name Role Phone Lurdes Thomas MD Primary Care Provider Reason for Visit Reason Comments Refill Request lab draw Encounter Details Date Type Department Care Team Description 09/20/2012 Office Visit [facility] Lurdes Thomas Hyperlipi demkatlyn LDL goal < 130 (Primary Dx); Uzair Laughlin MD Parkinson disease (H); [address] [employer] Prediabetes; [place] [address] [place] Screening for diabetes mellitus; [phone] 86[address] [facility] Screening [place] [address] Social History Tobacco Use Types Packs/Day Years [...] Body Mass Index 23.75 07/27/2011 10:04 AM SUPERVISOR VACUUM METALIZING documented in this encounter Patient Instructions Patient [...] list, Allergies, and Medical/Social/Surgical histories reviewed in [facility] andupdated as appropriate. OBJECTIVE: BP 112/62 [...] Provider - 1 year Lurdes Thomas MD [facility] documented in this encounter Nursing Notes 09/20/2012 8:00 AM CDT >> ERROL WARREN [facility] September 20, 2012 8:08 AM Patient presents [...] athologist Signature Sodium 139 133 - 144 [place] [facility] mmol/L [facility]INIC LAB Potassium 4.6 3.4 - 5.3 [place] [facility] mmol/L [facility] Chloride 101 94 - 109 [place] [facility] mmol/L [facility] Carbon Dioxide 31 20 - 32 [place] [facility] mmol/L [facility] Anion Gap 7 6 - 17 [place] [facility] mmol/L [facility] Glucose 104 (H) 60 - 99 [facility] mg/dL CLINIC LAB Comment: Fasting specimen Urea Nitrogen 24 7 - 30 mg/dL [facility] Creatinine 0.94 0.66 - 1.25 mg/dL [facility] GFR Estimate 83 >60 mL/min/1.7m2 [place] [facility] LAB GFR Estimate If Black >90 >60 mL/min/1.7m2 F [facility] LAB Calcium 8.8 8.5 - 10.4 mg/dL [facility] Bilirubin Total 1.0 0.2 - 1.3 mg/dL [facility] Albumin 4.1 3.3 - 4.9 g/dL [facility] Comment: Reference range changed on 01/21. Protein Total 7.0 6.8 - 8.8 g/dL [facility] Comment: As of 07, reference range reflects plasma specimen type. Alkaline Phosphatase 81 40 - 150 U/L [facility] ALT 17 0 - 70 U/L [facility] CLIN IC LAB AST 54 (H) 0 - 45 U/L [facility] CLIN IC LAB Specimen Anatomical Collection Method Collection Time Receive d Time (Source) Location / / Volume Laterality Blood specimen 09/20/2012 8:17 AM 013 8:22 (specimen) CDT AM CDT Lurdes Thomas MD LAB - BLOOD ORDERABLES Performing Organization Address City/State/ZIP Code Phon e Number [facility] [address] [place] [address] [facility] [address] [place] [address] Lipid panel reflex to direct LDL (09/20/2012 8:17 AM CDT) athologist Signature Cholesterol 178 0 - 200 [facility] mg/dL CLINIC LAB Comment: LDL Cholesterol is the primary guide to therapy. The NCEP recommends further evaluation of: patients with cholesterol greater than 200 mg/dL if additional risk facto rs are present, cholesterol greater than 240 mg/dL, triglycerides greater than 1 50 mg/dL, or HDL less than 40 mg/dL. Triglycerides 83 0 - 150 mg/dL [facility] HDL Cholesterol 66 40 - 110 mg/dL [facility] LDL Cholesterol Calculated 95 0 - 129 mg/dL [facility] Comment: LDL Cholesterol is the primary guide to therapy: LDL-cholesterol goal in high risk patients is <100 mg/dL and in very high risk patients is <70 mg/dL. VLDL-Cholesterol 17 0 - 30 mg/dL [facility] LAB Cholesterol/HDL Ratio 2.7 0.0 - 5.0 [facility] Specimen Anatomical Collection Method Collection Time Receive d Time (Source) Location / / Volume Laterality Blood specimen 09/20/2012 8:17 AM 013 8:22 (specimen) CDT AM CDT Lurdes Thomas MD LAB - BLOOD ORDERABLES Performing Organization Address City/State/ZIP Code Phon e Number [facility] [address] [place] [address] [facility] [address] [place] [address] documented in this encounter Visit Diagnoses Diagnosis Hyperlipidemia LDL goal < 130 - Primary Other and unspecified hyperlipidemia Parkinson disease (H) Paralysis agitans Prediabetes Other abnormal glucose Screening for diabetes mellitus Screening for colon cancer Special screening for malignant neoplasm s, colon documented in this encounter Care Teams Ladies Suit Operator Relationship Specialty Start Date End Date Lurdes Thomas MD PCP - General Internal Medicine 04/12/10 04/03/13 documented as of this encounter
--- OUTSIDE RECORDS SUMMARY | 2022-01-20 12:43 | XMS_ITS | Encounter Summary ---
:1955 Author Organization [place] Address [address] [facility] [place] [address] Care Team Providers Name Role Phone Lurdes Thomas MD Primary Care Provider [phone] Encounter Details Date Type Department Care Team Description 07/08/2014 Medical Correspondence [facility], Non-Provider NEUROLOG Y-ORDER-2/ Health Info [facility] 11/2014 Sr[facility] [address] [place] [address] Social History Tobacco Use Types [...] on filedocumented in this encounter Care Teams Carpentry Supervisor Relationship Specialty Start Date End Date Lurdes Thomas MD PCP - General Internal Medicine 06/11/14 12/16/20 documented as of this encounter
--- OUTSIDE RECORDS SUMMARY | 2022-01-20 12:43 | XMS_ITS | Encounter Summary ---
:1955 Author Organization [place] Address [address] [place] [address]. [place] [address] Care Team Providers Name Role Phone Lurdes Thomas MD Primary Care Provider [phone] Reason for Visit Reason Comments Pre-Op Exam Encounter Details Date Type Department Care Team Description 08/25/2014 Office Visit [facility] Lurdes Thomasop gen eral physical exam (Primary Dx); Uzair Laughlin MD Parkinson disease (H); [address] [employer] Bilateral leg edema; [place] [address] [place] Leg swelling; [phone] 86[address] [facility] Vitamin D deficiency disease [address] [place], [place] [address] Social History Tobacco Use [...] Thomas MD - 08/25/2014 12:38 PM CDT [address] [address] Dept: [phone] PRE-OP EVALUATION: Today's date: 08/25/2014 Andrew Pang (: 1955) presents for pre-operative evaluation assessment as requested by . He requires evaluation and anesthesia risk assessment prior to undergoing surgery/procedurefor treatment of Parkinson's . Proposed procedure: Deep brain stimulator implant Date of Surgery/ Procedure: 09/09& Time of Surgery/ Procedure: 529 Hospital/Surgical Facility: [facility] Primary Physician: Lurdes Thomas Type of [...] cardiovascular risks for perioperative complications such as (OR, PE, VFib and 3?? AV Block): No [...] D 25 (L) 30 - 75 [facility] ug/L [facility] Comment: Season, race, dietary intake, and treatm ent affect the concentration of 11-tmhtirn-Iftqbjo D. Values may decrea se during winter [...] Organization Address City/State/ZIP Code Phon e Number [facility] [address] [place] [address] [facility] (ABNORMAL) Basic metabolic panel (08/25/2014 1:08 PM CDT) Analysis Performed At [facility] logist Time Signature Sodium 137 133 - 144 [place] mmol/L [facility] Potassium 3.5 3.4 - 5.3 [place] mmol/L [facility] Chloride 100 94 - 109 [place] mmol/L [facility] Carbon Dioxide 28 20 - 32 [place] mmol/L [facility] Anion Gap 9 3 - 14 [place] mmol/L [facility] Glucose 132 (H) 70 - 99 [place] mg/dL [facility] Comment: Effective 12/18/2013, the reference range for this assay has changed to reflect new instrumentation/methodology. Urea Nitrogen 18 7 - 30 mg/dL [facility] Comment: Effective 12/18/2013, the reference range for this assay has changed to reflect new instrumentation/methodology. Creatinine 0.77 0.66 - 1.25 [facility] mg/dL [facility] GFR Estimate >90 >60 mL/min/1.7m2 [facility] Non GFR Calc [facility] GFR Estimate If Black >90 >60 mL/min/1.7m2 [facility] GFR Calc [facility] Calcium 9.3 8.5 - 10.1 mg/dL [facility] Comment: Effective 12/18/2013, the reference range for [...] [facility] [address] [place] [address] documented in this encounter Visit Diagnoses Diagnosis Preop general physical exam - Primary Other specified pre-operative examinatio n Parkinson disease (H) Paralysis agitans Bilateral leg edema Edema Leg swelling Swelling of limb Vitamin D deficiency disease Unspecified vitamin D deficiency documented in this encounter Care Teams Ear Flap Binder Relationship Specialty Start Date End Date Lurdes Thomas MD PCP - General Internal Medicine 06/11/14 12/16/20 documented as of this encounter
--- OUTSIDE RECORDS SUMMARY | 2022-01-20 12:43 | XMS_ITS | Encounter Summary ---
:1955 Author Organization [place] Address [address] [facility] [place] [address] Care Team Providers Name Role Phone Lurdes Thomas MD Primary Care Provider [phone] Reason for Visit Auth/Cert - Closed Specialty Diagnoses / Procedures Referred By Contact Refer red To Contact Surgery Diagnoses [facility] DISE[facility] Sh Periop Services Procedures OPTICAL TRACKING SYSTEM INSERTION DEEP BRAIN STIMULATION BILATERAL [address] [place] [address] Phone: Referral ID Status Reason Start Date Expiration Date Visits Requ ested Visits Authorized [id number] Closed 1 1 Encounter Details Date Type Department Care Team Description 09/09/2014 Anesthesia Event [facility] Andrew Narayan [place] PeriOP Ser shyann [facility] [address] [facility] ANESTHESIOLOGIS [place] [id number] [phone] [place] [address] Anesthesia Record Procedure [...] benefits and alternatives discussed with: patient or transportation services representative. . History & Physical Review History [...] Arline Hutson APRN CNP vitamin D (ERGOCALCIFEROL) 53435 UNIT capsule Take 1 capsule (50,000 Units) by mouth every 7 days 08/26/14 Yes Lurdes Thomas MD hydrochlorothiazide (HYDRODIURIL) 25 MG tablet Take 1 tablet (25 mg) by mouth daily 08/25/14 Yes Lurdes Thomas MD pravastatin (PRAVACHOL) 80 MG tablet Take 1 tablet (80 mg) by mouth daily 08/20/14 Yes Ludres Thomas MD rotigotine (NEUPRO) 8 MG/24HR Place [...] results for input(s): INR in the last 38015 hours. Invalid input(s): APTT RECENT LABS: ECG: NSR ECHO: CXR: documented in this encounter Miscellaneous Notes Anesthesia Care Transfer Note - Millicent Enciso APRN TEXTILE EXAMINER - 09/09/2014 10:58 AM CDT Anesthesia Care [...] mg documented in this encounter Care Teams Oil Heater Operator Relationship Specialty Start Date End Date Lurdes Thomas MD PCP - General Internal Medicine 06/11/14 12/16/20 documented as of this encounter
--- OUTSIDE RECORDS SUMMARY | 2022-01-20 12:43 | XMS_ITS | Encounter Summary ---
:1955 Author Organization [place] Address [address] [place] [address] Care Team Providers Name Role Phone Lurdes Thomas MD Primary Care Provider [phone] Reason for Visit (Routine) - Closed Specialty Diagnoses / Procedures Referred By Contact Refer red To Contact Radiology / Radiology. Procedures Nuclear Medicine NM MPI WITH LEXISCAN [address] [place] [address] Phone: Fax: Referral ID Status Reason Start Date Expiration Date Visits Requ ested Visits Authorized [id number] Closed 06/20/2014 12/17/2014 1 1 Encounter Details Date Type Department Care Team Description 06/25/2014 Hospital Encounter [facility] Lurdes Thomas MD [address] [facility] [address] 86[address] [facility] [phone] [place], [place] [address] (Wo rk) Social History [...] Take 1 capsule 8 capsule 0 06/1208/01/2014 72688 UNIT (50,000 Units) by capsuleIndications: mouth every [...] (shortness of Resu lts for this LEXISCAN AMERICAN STUDIES PROFESSOR breath) procedure are i n the results section. documented in this encounter Visit Diagnoses Not on filedocumented in this encounter Administered Medications Inactive Administered Medications - up to 3 most recent administrations Medication Order MAR Action Action Date Dose Rate Site technetium Tc 99m tetrofosmin 2UD Given 06/25/2014 1:04 PM AMERICAN STUDIES PROFESSOR 3 0 mCi study (MYOVIEW) radioisotope injection 3-42 mCi 3-42 mCi, Intravenous, EVERY 2 HOURS, First dose on Mon06/25/14 at 1015, For 2 doses, Radioisotope, supplied by and administered by Nuclear Medicine. *HW* Given 06/25/2014 10:09 AM AMERICAN STUDIES PROFESSOR 10.4 mCi documented in this encounter Care Teams Model Set Artist Relationship Specialty Start Date End Date Lurdes Thomas MD PCP - General Internal Medicine 06/11/14 12/16/20 documented as of this encounter
--- OUTSIDE RECORDS SUMMARY | 2022-01-20 12:43 | XMS_ITS | Encounter Summary ---
:1955 Author Organization [place] Address [address] [place] [address]. [place] [address] Care Team Providers Name Role Phone Lurdes Thomas MD Primary Care Provider [phone] Reason for Visit Reason Comments Pre-Op Exam Encounter Details Date Type Department Care Team Description 08/11/2014 Office Visit [facility] Lurdes Thomasop gen eral physical exam (Primary Dx); Uzair Laughlin MD Parkinson disease (H); [address] Leg swelling; [place] [address] [place] Acute bronchitis [phone] [place], [place] [address] Social History Tobacco Use Types Packs/Day [...] Thomas MD - 08/11/2014 2:01 PM CDT [address] [address] Dept: [phone] PRE-OP EVALUATION: Today's date: 08/11/2014 Andrew Pang (: 1955) presents for pre-operative evaluation assessment as requested by . He requires evaluation and anesthesia risk assessment prior to undergoing surgery/procedurefor treatment of Parkinson's . Proposed procedure: Deep Brain Stimulator insertion Date of Surgery/ Procedure: 09/09 Time of Surgery/ Procedure: 529 Hospital/Surgical Facility: [facility] Primary Physician: Lurdes Thomas Type [...] cardiovascular risks for perioperative complications such as (WA, PE, VFib and 3?? AV Block): No [...] evaluation report is provided to requesting physician. [place] Preop Guidelines documented in this encounter Nursing [...] bronchitis documented in this encounter Care Teams Hotel Or Motel Room Service Supervisor Relationship Specialty Start Date End Date Lurdes Thomas MD PCP - General Internal Medicine 06/11/14 12/16/20 documented as of this encounter
--- OUTSIDE RECORDS SUMMARY | 2022-01-20 12:43 | XMS_ITS | Encounter Summary ---
:1955 Author Organization [place] Address [address] [place] [address]. [place] [address] Care Team Providers Name Role Phone Unavailable Primary Care Provider Unavailable Reason for Visit Reason Onset Date Comments Refill Request 11/06/2013 Pravachol Encounter Details Date Type Department Care Team Description 11/06/2013 Refill [facility] Eag an Martha, Lurdes Refill Request 1440 [facility] MD [place] (Pravachol ) [place] [address] [facility] [phone] [address] (Wo rk) Social History [...] of 03/2013-Per patient, he has swtiched to [facility] due to insurance change, no longer seen through the [facility] network. Maame Major RN Telephone Encounter - [...]
--- OUTSIDE RECORDS SUMMARY | 2022-01-20 12:43 | XMS_ITS | Encounter Summary ---
:1955 Author Organization [place] Address [address] [place] [address] Care Team Providers Name Role Phone Lurdes Thomas MD Primary Care Provider [phone] Encounter Details Date Type Department Care Team Description 07/18/2014 Hospital Encounter [facility] [address] [facility]. [place] [id number] Social History Tobacco Use Types Packs/Day Years [...] Take 1 capsule 8 capsule 0 06/1208/01/2014 66612 UNIT (50,000 Units) by capsuleIndications: mouth every [...] 11:24 AM R esults for this ABDOMEN SPECIALIST PHYSICIANS procedure are i n the results section. documented in this encounter Results MR Digital Archive Non-[place] (05/26/2014 11:24 AM SPECIALIST PHYSICIANS) Specimen (Source) Anatomical Location Collection Method / Collectio n Time Received Time / Laterality Volume Narrative RADIANT - 07/18/2014 11:24 AM SPECIALIST PHYSICIANS <!--EPICS-->Digitized exam for comparison only; no results available<!--EPICE--> Radiology Non-Fv Credentialed Provider IMG EXTERNAL IM AGING ORDERABLES Performing Organization Address City/State/ZIP Code Phon e Number RADIANT documented in this encounter Visit Diagnoses Not on filedocumented in this encounter Care Teams Grant Manager Relationship Specialty Start Date End Date Lurdes Thomas MD PCP - General Internal Medicine 06/11/14 12/16/20 documented as of this encounter
--- OUTSIDE RECORDS SUMMARY | 2022-01-20 12:43 | XMS_ITS | Encounter Summary ---
:1955 Author Organization [place] Address [address] [facility] [place] [address] Care Team Providers Name Role Phone Lurdes Thomas MD Primary Care Provider [phone] Reason for Visit (Routine) - Closed Specialty Diagnoses / Procedures Referred By Contact Refer red To Contact Radiology / Radiology. Procedures Nuclear Medicine [place] INJ [address] [place] [address] Phone: Fax: Referral ID Status Reason Start Date Expiration Date Visits Requ ested Visits Authorized [id number] Closed 06/20/2014 06/20/2015 1 1 Encounter Details Date Type Department Care Team Description 06/25/2014 Hospital Encounter [facility] Lurdes Thomas MD [address] [place] [facility] [address] 86[address] [facility] [phone] [place], [place] [address] (Wo rk) Social History [...] Take 1 capsule 8 capsule 0 06/1208/01/2014 02247 UNIT (50,000 Units) by capsuleIndications: mouth every [...] (shortness of Resu lts for this LEXISCAN CRIME LAB TECHNICIAN breath) procedure are i n the results section. documented in this encounter Visit Diagnoses Not on filedocumented in this encounter Care Teams Electrical Journeyman Relationship Specialty Start Date End Date Lurdes Thomas MD PCP - General Internal Medicine 06/11/14 12/16/20 documented as of this encounter
--- OUTSIDE RECORDS SUMMARY | 2022-01-20 12:43 | XMS_ITS | Encounter Summary ---
:1955 Author Organization [place] Address [address] [place] [address] Care Team Providers Name Role Phone Lurdes Thomas MD Primary Care Provider [phone] Encounter Details Date Type Department Care Team Description 06/18/2014 Medical Correspondence [facility] Scan, GOALS AND CONCERNS [facility], Non-Provider Health Info Mgmt [facility] [address] [facility] [address] [place] [address] Social History Tobacco Use Types [...] on filedocumented in this encounter Care Teams Lines Tender Relationship Specialty Start Date End Date Lurdes Thomas MD PCP - General Internal Medicine 06/11/14 12/16/20 documented as of this encounter
--- OUTSIDE RECORDS SUMMARY | 2022-01-20 12:43 | XMS_ITS | Encounter Summary ---
:1955 Author Organization [place] Address [address] [facility] [place] [address] Care Team Providers Name Role Phone Lurdes Thomas MD Primary Care Provider [phone] Reason for Visit Reason Comments Neurologic Problem Encounter Details Date Type Department Care Team Description 09/08/2014 Office Visit [facility] Arline Peñaloza S/Jana d eep brain [facility] MARISOL Del Real SUPERVISING DEPUTY stimulator placement [place] [address] (Primary Dx) [address] [place], [place] [address] [address] [place] [address] Social History Tobacco Use [...] with tour of facility and escorted to [facility] for CT scan check in. - Patient [...] mins nursing discharge time --Nomi Martell MSN, VIDEOGAME DESIGNER, SUPERVISING DEPUTY-C signature documented in this encounter Plan of Treatment Not on filedocumented as of this encounter Visit Diagnoses Diagnosis S/P deep brain stimulator placement - Pr imary documented in this encounter Care Teams Battery Engineer Relationship Specialty Start Date End Date Lurdes Thomas MD PCP - General Internal Medicine 06/11/14 12/16/20 documented as of this encounter
--- OUTSIDE RECORDS SUMMARY | 2022-01-20 12:43 | XMS_ITS | Encounter Summary ---
:1955 Author Organization [place] Address [address] [place] [address]. [place] [address] Care Team Providers Name Role Phone Lurdes Thomas MD Primary Care Provider [phone] Reason for Visit Reason Onset Date Comments Refill Request 06/08/2012 pravastatin Encounter Details Date Type Department Care Team Description 06/08/2012 Refill [facility] Eag Lurdes Rojas Refill Request 14[address] [facility] MD [place] (pravastatin) [place] [address] [facility] [phone] [address] (Wo rk) Social History [...] mailed to schedule appointment. Jeannine Waldron RN ETRICS NURSE Telephone Encounter - Jeannine Waldron - 06/08/2012 1:33 PM CST Med requested: pravastatin Last office visit: 07/27/11 BP Readings from Last 1 Encounters: 10/25/11 104/66 Last pertinent lab: CHOL 236 07/27/2011 HDL 60 07/27/2011 LDL 152 07/27/2011 TRIG 121 07/27/2011 CHOLHDLRATIO 3.9 07/27/2011 AST 35 07/27/2011 ALT 20 07/27/2011 Jeannine Waldron RN ETRICS NURSE documented in this encounter Plan of Treatment Not on filedocumented as of this encounter Visit Diagnoses Diagnosis Hyperlipidemia LDL goal < 130 - Primary Other and unspecified hyperlipidemia documented in this encounter Care Teams Customer Field Representative Relationship Specialty Start Date End Date Martha, Lurdes Laughlin MD PCP - General Internal Medicine 04/12/10 04/03/13 documented as of this encounter
--- OUTSIDE RECORDS SUMMARY | 2022-01-20 12:43 | XMS_ITS | Encounter Summary ---
:1955 Author Organization [place] Address [address] [place] [address]. [place] [address] Care Team Providers Name Role Phone Lurdes Thomas MD Primary Care Provider [phone] Encounter Details Date Type Department Care Team Description 06/11/2014 Radiant Appointment [facility] Lurdes Thomas (shortness of Uzair Laughlin MD breath) [address] [employer] [facility] [address] [address] [phone] [place] [address] Social History Tobacco Use Types [...] AM SOB (shortness of Results for this ROCK DRILL OPERATOR breath) procedure are i n the results section. documented in this encounter Results XR Chest 2 Views (06/11/2014 8:52 AM ROCK DRILL OPERATOR) Anatomical Region Laterality Modality Chest Computed Radiography Specimen (Source) Anatomical Location Collection Method / Collectio n Time Received Time / Laterality Volume Impressions 06/11/2014 9:24 AM ROCK DRILL OPERATOR IMPRESSION: ??Negative. APOLONIA PACE MD Narrative 06/11/2014 9:24 AM ROCK DRILL OPERATOR XR CHEST 2 VW ??06/11/2014 8:52 AM [...] breath documented in this encounter Care Teams Table Assembler Metal Relationship Specialty Start Date End Date Lurdes Thomas MD PCP - General Internal Medicine 06/11/14 12/16/20 documented as of this encounter
--- OUTSIDE RECORDS SUMMARY | 2022-01-20 12:43 | XMS_ITS | Encounter Summary ---
:1955 Author Organization [place] Address [address] [facility] [address] Care Team Providers Name Role Phone Lurdes Thomas MD Primary Care Provider [phone] Encounter Details Date Type Department Care Team Description 09/03/[address] [facility] FELICE Hernández KATHY [facility], Non-Provider MD-ORDER -09/03/2014 Health Info [facility] [address] [facility] [address] [place] [address] Social History Tobacco Use Types [...] on filedocumented in this encounter Care Teams Customer Assistance Associate Relationship Specialty Start Date End Date Lurdes Thomas MD PCP - General Internal Medicine 06/11/14 12/16/20 documented as of this encounter
--- OUTSIDE RECORDS SUMMARY | 2022-01-20 12:43 | XMS_ITS | Encounter Summary ---
:1955 Author Organization [place] Address [address] [facility] [place] [address] Care Team Providers Name Role Phone Lurdes Thomas MD Primary Care Provider [phone] Reason for Visit (Routine) - Closed Specialty Diagnoses / Procedures Referred By Contact Refer red To Contact Radiology / Radiology. Diagnoses R#NA, BC, Epic Order Sh Mri Procedures MR BRAIN WWO [address] [place] [address] Phone: Referral ID Status Reason Start Date Expiration Date Visits Requ ested Visits Authorized [id number] Closed 07/28/2014 07/28/2015 1 1 Encounter Details Date Type Department Care Team Description 08/26/2014 Hospital Encounter [facility] Rachel Cuadra rkinson's disease [facility] Imaging Lm, BOTTOM CAGER DEGREASING SOLUTION MIXER (H) [address] [place] [address] ORTHOPEDICS [phone] [place] [address] [place], [place] [address] Social History Tobacco Use Types Packs/Day Years [...] Take 1 capsule 4 capsule 2 08/2602/12/2015 02380 UNIT (50,000 Units) by capsuleIndications: Vitamin mouth [...] planning purposes. COMPARISON: Diagnostic brain MRI from [facility] 05/26/2014. FINDINGS: The ventricles are normal [...] planning purposes. COMPARISON: Diagnostic brain MRI from [facility] 05/26/2014. FINDINGS: The ventricles are normal in s ize. There is no midline shift. There are no extra-axial fluid co llections. There is no evidence for intracranial hemorrhage. IMPRESSION IMPRESSION: Treatment planning brain MRI images with no evidence for acute intracranial pathology. BETTY CLOUD MD Rachel Cuadra BOTTOM CAGER DEGREASING SOLUTION MIXER IMG MRI ORDERABLES documented in this encounter [...] MRI. documented in this encounter Care Teams Client Development Consultant Relationship Specialty Start Date End Date Lurdes Thomas MD PCP - General Internal Medicine 06/11/14 12/16/20 documented as of this encounter
--- OUTSIDE RECORDS SUMMARY | 2022-01-20 12:43 | XMS_ITS | Encounter Summary ---
:1955 Author Organization [place] Address [address] [place] [address]. [place] [address] Care Team Providers Name Role Phone Lurdes Thomas MD Primary Care Provider Reason for Visit Reason Onset Date Comments Refill Request 08/20/2014 PRAVASTATIN 80MG Encounter Details Date Type Department Care Team Description 08/20/2014 Refill [facility] Eag Lurdes Rojas Refill Request 1440 [facility] MD [place] (PRAVASTATIN 80MG) [place] [address] [facility] [phone] [place] [address] (Wo rk) Social History Tobacco Use [...] hyperlipidemia documented in this encounter Care Teams Edi Consultant Relationship Specialty Start Date End Date Lurdes Thomas MD PCP - General Internal Medicine 06/11/14 12/16/20 documented as of this encounter
--- OUTSIDE RECORDS SUMMARY | 2022-01-20 12:43 | XMS_ITS | Encounter Summary ---
:1955 Author Organization [place] Address [address] [place] [address] Care Team Providers Name Role Phone Lurdes Thomas MD Primary Care Provider [phone] Reason for Visit (Routine) - Closed Specialty Diagnoses / Procedures Referred By Contact Refer red To Contact Radiology / Radiology. Diagnoses R#NA, BC, Epic Order Sh Ct Scan Procedures CT HEAD WO [address] [place] [address] Phone: Referral ID Status Reason Start Date Expiration Date Visits Requ ested Visits Authorized [id number] Closed 08/11/2014 08/11/2015 1 1 Encounter Details Date Type Department Care Team Description 09/08/2014 Hospital Encounter [facility] Rachel Cuadra rkinson's disease [facility] Imaging Lm, CORE OVEN TENDER MACHINE FEEDER (H) [address] [place] [address] ORTHOPEDICS [phone] [place] [address] Social History Tobacco Use Types Packs/Day Years [...] Take 1 capsule 4 capsule 2 08/2602/12/2015 31166 UNIT (50,000 Units) by capsuleIndications: Vitamin mouth [...] abnormality. FAMILIA GUILLERMO MD Rachel Cuadra APRN MACHINE FEEDER IMG CT ORDERABLES documented in this encounter Visit Diagnoses Diagnosis Parkinson's disease (H) Paralysis agitans documented in this encounter Care Teams Test Case Developer Relationship Specialty Start Date End Date Lurdes Thomas MD PCP - General Internal Medicine 06/11/14 12/16/20 documented as of this encounter
--- OUTSIDE RECORDS SUMMARY | 2022-01-20 12:43 | XMS_ITS | Encounter Summary ---
:1955 Author Organization [place] Address [address] [facility] [place] [address] Care Team Providers Name Role Phone Lurdes Thomas MD Primary Care Provider [phone] Reason for Visit Auth/Cert - Closed Specialty Diagnoses / Procedures Referred By Contact Refer red To Contact Surgery Diagnoses PARKINSONS DISEASE Sh Periop Services Procedures OPTICAL TRACKING SYSTEM INSERTION DEEP BRAIN STIMULATION BILATERAL [address] [place] [address] Phone: Referral ID Status Reason Start Date Expiration Date Visits Requ ested Visits Authorized [id number] Closed 1 1 Encounter Details Date Type Department Care Team Description 09/09/[address] [facility] Gonzalez Rowland BILATERAL SUBTHALMIC [place] PeriOP MD Tylor NUCLEUS DEEP BRAIN Services XX RESIGNED XX STIMULATOR [address] [place] [address] [place] [address] [phone] Surgery Details Date/Time Status Location OR Service [...] Neurosurgery 1 Arline Peñaloza APRN CNP Assisting Retail Manager In Training Shereen pretty 1 documented in this encounter [...] APRN CNP - 09/10/2014 9:19 AM CDT [facility] Discharge Summary Neurosurgery Date [...] up with further consultation recommendations. Rachel Cuadra [facility] [address] [place] [address] Pager [phone] Significant Results and Procedures NONE Pending Results Unresulted Labs Ordered in the Past 30 Days of this Admission No orders found for last 60 day(s). Code Status Full Code Primary Care Physician Lurdes Laughlin [facility] Physical Exam Temp: 97.9 ??F (36.6 [...] other recreational vehicles Call my office at [phone] for increasing redness, swelling or pus draining [...] deep brain stimulator placement vitamin D (ERGOCALCIFEROL) 29702 UNIT capsule Take 1 capsule (50,000 Units) [...] other recreational vehicles Call my office at [phone] for increasing redness, swelling or pus draining [...] Take 1 capsule 4 capsule 2 08/2602/12/2015 36927 UNIT (50,000 Units) by capsuleIndications: Vitamin mouth [...] Thomas MD - 08/25/2014 12:38 PM CDT [address] [place] [address] Dept: [phone] PRE-OP EVALUATION: Today's date: 08/25/2014 Andrew Pang (: 1955) presents for pre-operative evaluation assessment as requested by . He requires evaluation and anesthesia risk assessment prior to undergoing surgery/procedurefor treatment of Parkinson's . Proposed procedure: Deep brain stimulator implant Date of Surgery/ Procedure: 09/09& Time of Surgery/ Procedure: 529 Hospital/Surgical Facility: [facility] Primary Physician: Lurdes Thoams Type of Anesthesia Anticipated: General Patient has [...] cardiovascular risks for perioperative complications such as (MO, PE, VFib and 3?? AV Block): No [...] care (reference Craniotomy/Craniectomy/Cranioplasty (Adult) CPG). Outcome: Improving [phone] Neuro: slight tremors hands, would freeze at [...] known, monitor. Plan of Care - Nasim Hdadad RN - 09/09/2014 4:09 PM CDT Problem: [...] brain stimulator placement SURGEON: Gonzalez Rowland MD Retail Manager In Training: Arline Hutson NP 59 yo man with [...] eda holes were made with the 14mm taxation agent drill over the markedbony entry points. The [...] microelectrode were inserted at 15mm above target, tyzlelca8an and impedences confirmed <400kohms. I began advancing [...] effects. The decisionwas made to insert a Everbridgetronic 3389 macroelectrode with the distal 0 contact [...] The decision was made to insert a Everbridgetronic 3389 macroelectrode with the distal 0 contact [...] 8:20 CDT AM CDT Gonzalez Rowland MD [facility] POCT Performing Organization Address City/State/ZIP [...] stimulator leads. LOGAN GUILLERMO MD Arline Peñaloza LUMBER STACK[employer] [facility] [facility] IMG CT ORDERABLES Hemoglobin (09/09/2014 6:10 AM CDT) athologist Signature Hemoglobin 14.8 13.3 - 17.7 [facility] g/dL [facility] Specimen Anatomical Collection Method Collection Time Receive d Time (Source) Location / / Volume Laterality Blood specimen 09/09/2014 6:10 AM 015 6:13 (specimen) CDT AM CDT Jacquie Coughlin LAB - BLOOD ORDERABLES Performing Organization Address City/State/ZIP Code Phon e Number M [facility] [address] [place] [address] [place] [address] [place] [address] Potassium (09/09/2014 6:10 AM CDT) athologist Signature Potassium 3.4 3.4 - 5.3 [facility] mmol/L [facility] Specimen Anatomical Collection Method Collection Time Receive d Time (Source) Location / / Volume Laterality Blood specimen 09/09/2014 6:10 AM 015 6:13 (specimen) CDT AM CDT Jacquie Coughlin LAB - BLOOD ORDERABLES Performing Organization Address City/State/ZIP Code Phon e Number M [facility] [address] [place] [address] [phone] [place] [address] [place] [address] documented in this encounter Visit Diagnoses Not [...] Site /Surgical Site 09/09/14 at 0858, Intra-procedure rkcwbqyp-uvnnzkrfas-vcojvvhda-calcium Given 09/09/2014 4 mLs Operative (TISSEEL) topical [...] 09/10/2014 amantadine (SYMMETREL) capsule 100 mg (CANCELED) 7131 (Given - Provider: Nasim Haddad RN)2006 (Given - Provider: Nomi Manuel RN - Comment: Pt states he has not taken his two doses today.) 6028 (Given - Provider: Nomi Manuel RN)0917 (Given [...] RN)0754 (Given - Provider: Millicent Enciso APRN CANOPY STRINGER)0954 (Given - Provider: Millicent Enciso APRN CRNA) [...] Volume Adjustment - Provider: Millicent Enciso APRN CANOPY STRINGER)1020 (New Bag - Provider: Millicent Enciso APRN CANOPY STRINGER)1059 (Anesthesia Volume Adjustment - Provider: Millicent Enciso APRN CANOPY STRINGER) at 75-100 mL/hr, Intravenous, CONTINUOUS , UNLESS [...] Nasim Haddad, RN)1600 (Given - Provider: Georges Hedirck, JAMAL)1851 (Given - Provider: Chloé Davalos RN) 0.3-0.5 mg, Intravenous, EVERY 30 MIN [place] N, Starting 09/09/14 at 1209, Until 09/10/14 [...] Rowland) PRN, Starting 09/09/14 at 0858, Intra-procedure ggewtoya-zjymvfsvxs-bvfmntour-calcium (TISSEEL) topical solu tion (CANCELED) 0859 (Given - Provider: Gonzalez Rowland)0900 (Given - Provider: Gonzalez Rowland)0901 (Given - Provider: Gonzalez Rowland)0921 (Given - Provider: Gonzalez Rowland)0943 (Given - Provider: Gonzalez Rowland) PRN, Starting Tu09/09/14 at 0859, Intra-procedure documented in this encounter Care Teams Insurance Risk Surveyor Relationship Specialty Start Date End Date Lurdes Thomas MD PCP - General Internal Medicine 06/11/14 12/16/20 documented as of this encounter
--- OUTSIDE RECORDS SUMMARY | 2022-01-20 12:43 | XMS_ITS | Encounter Summary ---
:1955 Author Organization [facility] Address [address] [place] [address]. [place] [address] Care Team Providers Name Role Phone Lurdse Thomas MD Primary Care Provider [phone] Reason for Referral Consultation - Closed Specialty Diagnoses / Procedures Referred By Contact Refer red To Contact Diagnoses Dyspnea on exertion Lurdes Thomas [facility] [address] [place], [place] [address] [facility] [address] [place] [address] Referral ID Status Reason Start Date Expiration Date Visits Requ ested Visits Authorized [id number] Closed 07/10/2014 01/06/2015 1 1 REPAIR SUPERVISOR Encounter Details Date Type Department Care Team Description 07/10/2014 Orders Only [facility] Eag an Lurdes Thomas Dyspnea on exertion 1440 Demian Laughlin MD (Primary Dx) [place] [phone] [facility] [phone] [place] [address] 25 Social History Tobacco Use Types [...] Name Type Priority Associated Diagnoses Order [facility] P[facility] MEDICINE Referral Routine Dyspnea on exertion Or dered: 07/10/2014 REFERRAL documented as of this encounter Visit Diagnoses Diagnosis Dyspnea on exertion - Primary Other dyspnea and respiratory abnormalit y documented in this encounter Care Teams Wire Hanger Relationship Specialty Start Date End Date Lurdes Thomas MD PCP - General Internal Medicine 06/11/14 12/16/20 documented as of this encounter
--- OUTSIDE RECORDS SUMMARY | 2022-01-20 12:43 | XMS_ITS | Encounter Summary ---
:1955 Author Organization [facility] Address [address] [place] [address]. [place] [address] Care Team Providers Name Role Phone Lurdes Thomas MD Primary Care Provider [phone] Reason for Visit Reason Comments Neurologic Problem DBS Consult Encounter Details Date Type Department Care Team Description 07/17/2014 [facility] [address] [facility] [address] [place], [place] [address] Parkinson's disease Neurosurgery Clinic Rachel Cuadra APRN HYDROGRAPHIC SURVEYOR [facility] [address] [facility] [address] [place], [place] [address] (H) (Primary Dx) [address] [address] Social History Tobacco Use Types [...] Comments Blood Pressure 124/81 07/17/2014 9:15 AM WOOD CHOPPER Pulse 94 07/17/2014 9:15 AM WOOD CHOPPER Temperature 36.6 ??C (97.8 ??F) 07/17/2014 9:15 AM WOOD CHOPPER Respiratory Rate - - Oxygen Saturation 94% 07/17/2014 9:15 AM WOOD CHOPPER Inhaled Oxygen Concentration - - Weight 99.1 kg (218 lb 6.4 oz) 07/17/2014 9:15 AM WOOD CHOPPER Height 185.4 cm (6' 1) 07/17/2014 9:15 AM WOOD CHOPPER Body Mass Index 28.81 07/17/2014 9:15 AM WOOD CHOPPER documented in this encounter Patient Instructions Patient [...] no sleep medications the night before surgery CHOPPER documented in this encounter Progress Notes Rachel Cuadra APRN CNP - 07/17/2014 9:22 AM CST [facility] Neurosurgery Consult Note CC: Tremors and legs are lockingup Primary care Provider: Lurdes Thomas Referring provider: Dr. Maria Esther Phan HPI: Andrew Pang is a 59 year old male with a history of Parkinsons disease. He was diagnosed in August of 2007. He has been treating at the [facility] as well as Dr. Phan. [...] up at night. 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 He was [...] Outpatient Prescriptions Medication ??? vitamin D (ERGOCALCIFEROL) 46212 UNIT capsule ??? rotigotine (NEUPRO) 8 MG/24HR [...] Onset ??? Cardiovascular Mother CVA x4 and [place], s/p CABG in mid-late 60's ??? Cardiovascular Father [place], s/p CABG in mid-late 60's ??? Diabetes [...] of Parkinson's disease. [facility]. [...] agreement with recommendations and plan. Rachel Cuadra HYDROGRAPHIC SURVEYOR [facility] [address] [place] [address] Pager [phone] Jordana Kline - 07/17/2014 9:18 AM CST [...] a DBS consult(Parkinsons) - referred by Dr. Phan([facility]) 5 nursing intake time Jordana Kline CMA Discharge plan: Patient given After Visit Summary. He will be scheduled for Bilateral DBS 2 nursing discharge time Jordana Kline CMA signature CHOPPER documented in this encounter Plan of Treatment [...] abnormality. FAMILIA GUILLERMO MD Rachel Cuadra APRN [facility] CT ORDERABLES MR Brain w/o & w [...] planning purposes. COMPARISON: Diagnostic brain MRI from [facility] 05/26/2014. FINDINGS: The ventricles are [...] planning purposes. COMPARISON: Diagnostic brain MRI from [facility] 05/26/2014. FINDINGS: The ventricles are normal in s ize. There is no midline shift. There are no extra-axial fluid co llections. There is no evidence for intracranial hemorrhage. IMPRESSION IMPRESSION: Treatment planning brain MRI images with no evidence for acute intracranial pathology. BETTY CLOUD MD Rachel Cuadra APRN HYDROGRAPHIC SURVEYOR IMG MRI ORDERABLES documented in this encounter Visit Diagnoses Diagnosis Parkinson's disease (H) - Primary Paralysis agitans Parkinson's disease (H) Paralysis agitans Parkinson's disease (H) Paralysis agitans documented in this encounter Care Teams Customs Appraiser Relationship Specialty Start Date End Date Lurdes Thomas MD PCP - General Internal Medicine 06/11/14 12/16/20 documented as of this encounter
--- OUTSIDE RECORDS SUMMARY | 2022-01-20 12:43 | XMS_ITS | Encounter Summary ---
:1955 Author Organization [place] Address [address] [facility] [place] [address] Care Team Providers Name Role Phone Lurdes Thomas MD Primary Care Provider [phone] Reason for Visit (Routine) - Closed Specialty Diagnoses / Procedures Referred By Contact Refer red To Contact Radiology / Radiology. Procedures Nuclear Medicine [place] [facility] [address] [place] [address] Phone: Fax: Referral ID Status Reason Start Date Expiration Date Visits Requ ested Visits Authorized [id number] Closed 06/20/2014 12/17/2014 1 1 Encounter Details Date Type Department Care Team Description 06/25/2014 Hospital Encounter [facility] Lurdes Thomas MD [address] [facility] [address] [address] [facility] [phone] [place], [place] [address] (Wo rk) Social History [...] Take 1 capsule 8 capsule 0 06/1208/01/2014 99637 UNIT (50,000 Units) by capsuleIndications: mouth every [...] (shortness of Resu lts for this LEXISCAN SOLE SKIVER breath) procedure are i n the results section. documented in this encounter Visit Diagnoses Not on filedocumented in this encounter Care Teams Missing Persons Investigator Relationship Specialty Start Date End Date Lurdes Thomas MD PCP - General Internal Medicine 06/11/14 12/16/20 documented as of this encounter
--- OUTSIDE RECORDS SUMMARY | 2022-01-20 12:43 | XMS_ITS | Encounter Summary ---
:1955 Author Organization [facility] Address [address] [place] [address]. [place] [address] Care Team Providers Name Role Phone Lurdes Thomas MD Primary Care Provider [phone] Reason for Visit (Routine) - Closed Specialty Diagnoses / Procedures Referred By Contact Refer red To Contact Cardiology Diagnoses 06/16-reminder ltr sent Rh Echo cc Procedures ECH COMPLETE [address] [facility] [address] [place], [place] [address] Phone: Fax: Referral ID Status Reason Start Date Expiration Date Visits Requ ested Visits Authorized [id number] Closed 06/17/2014 06/17/2015 1 1 Encounter Details Date Type Department Care Team Description 06/25/2014 [facility] MD [place] breath) Heart Care [facility] [address] [facility] [address] [place], [place] [address] [address] [place], [place] [phone] [id number] Social History Tobacco Use Types Packs/Day Years [...] Take 1 capsule 8 capsule 0 06/1208/01/2014 71707 UNIT (50,000 Units) by capsuleIndications: mouth every [...] (shortness o f Results for this OPTISON STATISTICIAN APPLIED breath) procedure are i n the results section. documented in this encounter Results ECHO COMPLETE WITH OPTISON (06/25/2014 2:19 PM STATISTICIAN APPLIED) Anatomical Region Laterality Modality Echocardiography Specimen (Source) Anatomical Collection Method Collection Time Re ceived Time Location / / Volume Laterality 06/25/2014 1:34 PM STATISTICIAN APPLIED Narrative 06/25/2014 4:24 PM STATISTICIAN APPLIED Interpretation Summary Left ventricular systolic function is [...] to 2mL with Given 06/25/2014 2:12 PM STATISTICIAN APPLIED 2 mLs saline (OPTISON) diluted injection 2 mL 2 mL, Intravenous, ONCE, On Mon06/25/14 at 1415, For 1 dose, 3mL Optison / 6mL Saline solution documented in this encounter Care Teams Screen Maker Relationship Specialty Start Date End Date Lurdes Thomas MD PCP - General Internal Medicine 06/11/14 12/16/20 documented as of this encounter
--- OUTSIDE RECORDS SUMMARY | 2022-01-20 12:43 | XMS_ITS | Encounter Summary ---
:1955 Author Organization [facility] Address [address] [place] [address]. [place] [address] Care Team Providers Name Role Phone Lurdes Thomas MD Primary Care Provider [phone] Reason for Visit Reason Onset Date Comments Other 07/21/2014 Pt. needs letter Encounter Details Date Type Department Care Team Description 07/21/2014 Telephone [facility] Gonzalez Rowland Other (Pt . needs Neurosurgery Clinic MD Tylor letter) See XX RESIGNED XX [address] [facility] [address] [place] [address] [place] [address] [place] [address] [place] [address] [phone] Social History Tobacco Use Types Packs/Day Years [...] To discuss a letter he needs? Thanks OF [employer] documented in this encounter Plan of Treatment Not on filedocumented as of this encounter Visit Diagnoses Not on filedocumented in this encounter Care Teams Maintenance Tech Relationship Specialty Start Date End Date Lurdes Thomas MD PCP - General Internal Medicine 06/11/14 12/16/20 documented as of this encounter
--- OUTSIDE RECORDS SUMMARY | 2022-01-20 12:44 | XMS_ITS | Encounter Summary ---
:1955 Author Organization [facility] Address [address] [place] [address]. [place] [address] Care Team Providers Name Role Phone Lurdes Thomas MD Primary Care Provider [phone] Reason for Visit Reason Onset Date Comments Refill Request 04/11/2011 pravastatin Encounter Details Date Type Department Care Team Description 04/11/[address] [facility] Eag Lurdes Rojas Refill Request 14[address] [facility] MD [place] (pravastatin) [place] [address] [facility] [phone] [address] (Wo rk) Social History Tobacco Use [...] labs letter sent. Received refill request from [facility] for pravastatin. Last Office Visit R/T Diagnosis: [...] comparison chart: [facility] CoA REDUCTASE INHIBITORS (STATINS) ASSEMBLER documented in this encounter Plan of Treatment Not on filedocumented as of this encounter Visit Diagnoses Diagnosis Hyperlipidemia LDL goal < 130 - Primary Other and unspecified hyperlipidemia documented in this encounter Care Teams Set Making Machine Operator Relationship Specialty Start Date End Date Lurdes Thomas MD PCP - General Internal Medicine 04/12/10 04/03/13 documented as of this encounter
--- OUTSIDE RECORDS SUMMARY | 2022-01-20 12:44 | XMS_ITS | Encounter Summary ---
:1955 Author Organization [place] Address [address] [place] [address]. [place] [address] Care Team Providers Name Role Phone Lurdes Thomas MD Primary Care Provider [phone] Reason for Visit Reason Onset Date Comments Musculoskeletal Problem 07/13/2010 Muscle aches and weakness Encounter Details Date Type Department Care Team Description 07/13/2010 Telephone [facility] Lurdes Thomas Musculosk eletal Problem [place] Laughlin MD (Muscle aches and 14[address] SpiralFrog weakness) [place] [address] [place] [phone] [address] [place], [place] [address] Social History Tobacco Use [...] this encounter Miscellaneous Notes Telephone Encounter - Lurdse Laughlin - 07/16/2010 12:46 PM REAL ESTATE INVESTOR Called and discussed with patient. Previously on [...] be evaluated. Lurdes Laughlin MD Internal Medicine/Pediatrics ESTATE INVESTOR Telephone Encounter - Lurdes Laughlin - 07/15/2010 4:14 PM REAL ESTATE INVESTOR Attempted again to call pt and at home and on cell. Left a message on cell. Asked pt to call or willtry back tomorrow. Lurdes Laughlin MD Internal Medicine/Pediatrics ESTATE INVESTOR Telephone Encounter - Lurdes Laughlin - 07/15/2010 12:41 PM REAL ESTATE INVESTOR Attempted to call patient to follow-up. Left a message at home. Will call back later. Lurdes Laughlin MD Internal Medicine/Pediatrics ESTATE INVESTOR Telephone Encounter - Lurdes Laughlin - 07/13/2010 3:38 PM REAL ESTATE INVESTOR Agree with the above. Ok for trial off simvastatin, but should also talk with Neurologist. II will call Andrew on . Thanks! Lurdes Laughlin MD Internal Medicine/Pediatrics ESTATE INVESTOR Telephone Encounter - Maki Major - 07/13/2010 [...] be reached until . 's number is [phone]. Maame Major RN ESTATE INVESTOR documented in this encounter Plan of Treatment Not on filedocumented as of this encounter Visit Diagnoses Not on filedocumented in this encounter Care Teams Armature Connector Relationship Specialty Start Date End Date Lurdes Thomas MD PCP - General Internal Medicine 04/12/10 04/03/13 documented as of this encounter
--- OUTSIDE RECORDS SUMMARY | 2022-01-20 12:44 | XMS_ITS | Encounter Summary ---
:1955 Author Organization [facility] Address [address] [place] [address]. [place] [address] Care Team Providers Name Role Phone Lurdes Thomas MD Primary Care Provider Reason for Visit Reason Onset Date Comments Pt. Information/instruction 10/26/2011 Physical the rapy Encounter Details Date Type Department Care Team Description 10/26/2011 Telephone [facility] Eag Lurdes Rojas Pt. [address] [facility] MD [place] Information/instruction [place] [address] [facility] (Physical therapy) [phone] [place] [address] (Wo rk) Social History Tobacco Use [...] took him to a chiropractor here in [place] who does the ultrasound treatments. He got us in right away yesterday. 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 The Chiropractor thinks he can get Andrew feeling pretty good by the middle ofnext week. I'm telling you this because I thought you should know that Andrwe probably will not followthrough with the prescribed [...] on filedocumented in this encounter Care Teams Rhinestone Setter Relationship Specialty Start Date End Date Lurdes Thomas MD PCP - General Internal Medicine 04/12/10 04/03/13 documented as of this encounter
--- OUTSIDE RECORDS SUMMARY | 2022-01-20 12:44 | XMS_ITS | Encounter Summary ---
:1955 Author Organization [place] Address [address] [place] [address]. [place] [address] Care Team Providers Name Role Phone Lurdes Thomas MD Primary Care Provider [phone] Reason for Visit Reason Comments Hypertension labs Encounter Details Date Type Department Care Team Description 07/27/2011 Office Visit [facility] Lurdes Thomas (Primary Dx); Uzair Laughlin MD Hyperlipidemia LDL goal < 130; 1440 [facility] Parkinson disease (H); [place] [address] [place] Screening for diabetes mellitus [phone] [address] [place] [address] Social History Tobacco Use Types [...] Comments Blood Pressure 124/70 07/27/2011 10:04 AM MECHANICAL DESIGN DRAFTER Pulse 65 07/27/2011 10:04 AM MECHANICAL DESIGN DRAFTER Temperature 36.3 ??C (97.3 ??F) 07/27/2011 10:04 AM MECHANICAL DESIGN DRAFTER Respiratory Rate - - Oxygen Saturation - - Inhaled Oxygen Concentration - - Weight 87.7 kg (193 lb 6.4 oz) 07/27/2011 10:04 AM MECHANICAL DESIGN DRAFTER Height 186.7 cm (6' 1.5) 07/27/2011 10:04 AM MECHANICAL DESIGN DRAFTER Body Mass Index 25.17 07/27/2011 10:04 AM MECHANICAL DESIGN DRAFTER documented in this encounter Patient Instructions Patient InstructionsLurdes Laughlin MD - 07/27/2011 10:35 AM MECHANICAL DESIGN DRAFTER 1. Labs today: cholesterol, electrolytes, diabetes screen, liver function and kidney function 2. Consider checking blood pressure when get hot/flushed feeling 3. Keep a log of when it happens, how Parkinson's is that day, any increased medications, stress/anxiety level ANICAL DESIGN DRAFTER documented in this encounter Progress Notes Lurdes [...] Parkinson's, HLP. Lurdes Laughlin MD Internal Medicine/Pediatrics ANICAL DESIGN DRAFTER documented in this encounter Nursing Notes 07/27/2011 [...] sults for this DIRECT LDL PANEL AM MECHANICAL DESIGN DRAFTER goal < 130 procedure a re in the results section. COMPREHENSIVE Routine 07/27/2011 10:35 Hyperlipidemia LDL Resu lts for this METABOLIC PANEL AM MECHANICAL DESIGN DRAFTER goal < 130 procedure are in Screening for diabetes the r esults mellitus section. documented in this encounter Results Comprehensive metabolic panel (07/27/2011 10:35 AM MECHANICAL DESIGN DRAFTER) P athologist Signature Sodium 138 133 - 144 [facility] mmol/L [facility] Potassium 4.2 3.4 - 5.3 [facility] mmol/L [facility] Chloride 105 94 - 109 [facility] mmol/L [facility] Carbon Dioxide 21 20 - 32 [facility]L [facility] Anion Gap 11 6 - 17 [facility] mmol/L [facility] Glucose 99 60 - 99 [facility] mg/dL [facility] Urea Nitrogen 18 7 - 30 [facility] mg/dL [facility] Creatinine 0.80 0.66 - [facility] 1.25 mg/dL [facility] GFR Estimate >90 >60 [facility] mL/min/1.7 [facility] m2 GFR Estimate If >90 >60 [facility] Black mL/min/1.7 [facility] m2 Calcium 9.3 8.5 - 10.4 [facility] mg/dL [facility] Bilirubin Total 0.7 0.2 - 1.3 [facility] mg/dL [facility] Albumin 4.2 3.3 - 4.9 [facility] g/dL [facility] Comment: Reference range changed on 01/21. Protein Total 7.4 6.8 - 8.8 g/dL [facility] Comment: As of 07, reference range reflects plasma specimen type. Alkaline Phosphatase 87 40 - 150 U/L [facility] ALT 20 0 - 70 U/L [facility] AST 35 0 - 45 U/L [facility] LAB Specimen Anatomical Collection Method Collection Time Receive d Time (Source) Location / / Volume Laterality Blood specimen 07/27/2011 10:35 2 (specimen) AM MECHANICAL DESIGN DRAFTER 10:38 AM MECHANICAL DESIGN DRAFTER Ludres Thomas MD LAB - BLOOD ORDERABLES Performing Organization Address City/State/ZIP Code Phon e Number [facility] [address] [place] [address] [facility] (ABNORMAL) Lipid panel reflex to direct LDL (07/27/2011 10:35 AM MECHANICAL DESIGN DRAFTER) P athologist Signature Cholesterol 236 (H) 0 - 200 [facility] mg/dL CLINIC [facility] Comment: LDL Cholesterol is the primary guide to therapy. The NCEP recommends further evaluation of: patients with cholesterol greater than 200 mg/dL if additional risk facto rs are present, cholesterol greater than 240 mg/dL, triglycerides greater than 1 50 mg/dL, or HDL less than 40 mg/dL. Triglycerides 121 0 - 150 mg/dL [facility] AN [facility] HDL Cholesterol 60 40 - 110 mg/dL [facility] LDL Cholesterol Calculated 152 (H) 0 - 129 mg/dL [facility] Comment: LDL Cholesterol is the primary guide to therapy: LDL-cholesterol goal in high risk patients is <100 mg/dL and in very high risk patients is <70 mg/dL. VLDL-Cholesterol 24 0 - 30 mg/dL [facility] Cholesterol/HDL Ratio 3.9 0.0 - 5.0 [facility] Specimen Anatomical Collection Method Collection Time Receive d Time (Source) Location / / Volume Laterality Blood specimen 07/27/2011 10:35 2 (specimen) AM MECHANICAL DESIGN DRAFTER 10:38 AM MECHANICAL DESIGN DRAFTER Lurdes Thomas MD LAB - BLOOD ORDERABLES Performing Organization Address City/State/ZIP Code Phon e Number [address] [address] [facility] documented in this encounter Visit Diagnoses Diagnosis Flushing - Primary Hyperlipidemia LDL goal < 130 Other and unspecified hyperlipidemia Parkinson disease (H) Paralysis agitans Screening for diabetes mellitus documented in this encounter Care Teams Affiliate Marketing Manager Relationship Specialty Start Date End Date Lurdes Thomas MD PCP - General Internal Medicine 04/12/10 04/03/13 documented as of this encounter
--- OUTSIDE RECORDS SUMMARY | 2022-01-20 12:44 | XMS_ITS | Encounter Summary ---
:1955 Author Organization [place] Address [address] [place] [address]. [place] [address] Care Team Providers Name Role Phone Lurdes Thomas MD Primary Care Provider Reason for Visit Reason Onset Date Comments Back Pain 07/11/2011 3 day follow up Encounter Details Date Type Department Care Team Description 07/11/2011 Refill [facility] Lurdes Oh Back Pain ([address] [facility] MD [place] up) [place] [address] [facility] [phone] [address] (Wo rk) Social History [...] to correct posture; stop aggravating activities. ?? Xgij-piq-nlzwrvo pain medications for short term symptom control. [...] provider immediately. Medications for Pain Relief Recommended djzm-aqs-yfgmuwx non-steroidal anti-inflammatories: Ibuprofen (Advil, Motrin) 600 mg. [...] this several times a day. Developed by [employer] Published by [employer]. Last modified: 2008-06-29 Last reviewed: 2007-11-26 This content is reviewed periodically and is subject to change as new health information becomes available. The information is intended to inform and educate and is not a replacement for medical evaluation, advice, diagnosis or treatment by a healthcare professional. Adult Health Advisor 2009.1 Index Adult Health Advisor 2009.1 Credits ?? 2009 [facility] and/or its affiliates. All Rights Reserved. SFORCE TRAINER documented in this encounter Miscellaneous Notes Telephone [...] of plan and is agreeable. Blanca Brandt SFORCE TRAINER Telephone Encounter - Blanca Brandt - 07/11/2011 10:18 AM CST Called and spoke with patient and informed of message from Dr. Laughlin below. Mailed back exercises.Patient is wanting to hold off on physical therapy at this time. Kristina Brandt RN SFORCE TRAINER Telephone Encounter - Nathalia Galvan - 07/11/2011 9:50 AM CST Called and LM for pt with message below. Nathalia Galvan MA SFORCE TRAINER Telephone Encounter - Lurdes Laughlin MD - 07/11/2011 9:08 AM SALESFORCE TRAINER Ibuprofen or naproxen are ok. Flexeril has potential interaction with azilect. I changed muscle relaxant to methocarbamol (robaxin) and sent to pharmacy. This also may make him sleepy. Please let patient know. Thanks, Lurdes Laughlin MD Internal Medicine/Pediatrics SFORCE TRAINER Telephone Encounter - Blanca Brandt - 07/11/2011 8:32 AM CST Images from the original note were not included. Patient calls stating he was bending over to clean [place] box yesterday morning and had back pain. He is leaving for [place] for work this afternoon. Wants to make [...] to correct posture; stop aggravating activities. ?? Gxkb-vyk-qgwngwj pain medications for short term symptom control. [...] provider immediately. Medications for Pain Relief Recommended volu-zvw-hoebfjn non-steroidal anti-inflammatories: Ibuprofen (Advil, Motrin) 600 mg. [...] this several times a day. Developed by [employer] Published by [employer]. Last modified: 2008-06-29 Last reviewed: 2007-11-26 This content is reviewed periodically and is subject to change as new health information becomes available. The information is intended to inform and educate and is not a replacement for medical evaluation, advice, diagnosis or treatment by a healthcare professional. Adult Health Advisor 2009.1 Index Adult Health Advisor 2009.1 Credits ?? 2009 [facility] and/or its affiliates. All Rights Reserved. SFORCE TRAINER documented in this encounter Plan of Treatment Not on filedocumented as of this encounter Visit Diagnoses Diagnosis Back muscle spasm - Primary Other symptoms referable to back documented in this encounter Care Teams Correctional Maintenance Technician Relationship Specialty Start Date End Date Lurdes Thomas MD PCP - General Internal Medicine 04/12/10 04/03/13 documented as of this encounter
--- OUTSIDE RECORDS SUMMARY | 2022-01-20 12:44 | XMS_ITS | Encounter Summary ---
:1955 Author Organization [place] Address [address] [place] [address]. [place] [address] Care Team Providers Name Role Phone Lurdes Thomas MD Primary Care Provider [phone] Reason for Visit Reason Onset Date Comments Medication Request 10/24/2011 robaxin Encounter Details Date Type Department Care Team Description 10/24/2011 Telephone [facility] Lurdes Rojas Medication Request 1440 [facility] MD [place] (robaxin) [place] [address] [facility] [phone] [address] (Wo rk) Social History Tobacco Use [...] on filedocumented in this encounter Care Teams Cut Tobacco Bulker Relationship Specialty Start Date End Date Lurdes Thomas MD PCP - General Internal Medicine 04/12/10 04/03/13 documented as of this encounter
--- OUTSIDE RECORDS SUMMARY | 2022-01-20 12:44 | XMS_ITS | Encounter Summary ---
:1955 Author Organization [facility] Address [address] [place] [address]. [place] [address] Care Team Providers Name Role Phone Lurdes Thomas MD Primary Care Provider [phone] Reason for Visit Reason Onset Date Comments Lab Result Notice 07/28/2011 Encounter Details Date Type Department Care Team Description 07/28/2011 Telephone [facility] an Lurdes Thomas Lab Result Notice 1440 [facility] [place] [address] [facility] [phone] [address] (Wo rk) Social History Tobacco Use [...] Lurdes Laughlin MD - 07/28/2011 9:25 PM WINE PASTEURIZER LDL not at goal, needs increased dose. Lurdes Laughlin MD Internal Medicine/Pediatrics PASTEURIZER documented in this encounter Plan of Treatment Not on filedocumented as of this encounter Visit Diagnoses Diagnosis Hyperlipidemia LDL goal < 130 - Primary Other and unspecified hyperlipidemia documented in this encounter Care Teams Press Box Custodian Relationship Specialty Start Date End Date Lurdes Thomas MD PCP - General Internal Medicine 04/12/10 04/03/13 documented as of this encounter
--- OUTSIDE RECORDS SUMMARY | 2022-01-20 12:44 | XMS_ITS | Encounter Summary ---
:1955 Author Organization [place] Address [address] [place] [address]. [place] [address] Care Team Providers Name Role Phone Lurdes Thomas MD Primary Care Provider [phone] Reason for Visit Reason Onset Date Comments Chronic Care Conference Provider Overview 12/29/2010 Encounter Details Date Type Department Care Team Description 12/29/2010 Telephone [facility] Lurdes Oh Chronic Care Conference 1440 [facility] MD [place] Provider Overview [place] [address] [facility] [phone] [address] (Wo rk) Social History Tobacco Use [...] on filedocumented in this encounter Care Teams Preparation Supervisor Relationship Specialty Start Date End Date Lurdes Thomas MD PCP - General Internal Medicine 04/12/10 04/03/13 documented as of this encounter
--- OUTSIDE RECORDS SUMMARY | 2022-01-20 12:44 | XMS_ITS | Encounter Summary ---
:1955 Author Organization [place] Address [address] [place] [address]. [place] [address] Care Team Providers Name Role Phone Lurdes Thomas MD Primary Care Provider [phone] Reason for Referral Referral not Required - Closed Specialty Diagnoses / Procedures Referred By Contact Refer red To Contact Diagnoses Cervical radicular pain Francisco Kitchen MD [employer] [facility] [address] [place] [address] [facility] [place] [address] ADMIN OFFICE [place] [address] Phone: [phone] Referral ID Status Reason Start Date Expiration Date Visits Requ ested Visits Authorized [id number] Closed 10/25/2011 04/22/2012 1 1 Reason for Visit Reason Comments Back Pain Encounter Details Date Type Department Care Team Description 10/25/2011 Office Visit [facility] Francisco Kitchen DDD (degene rative disc disease), cervical; Uzair Currie MD Cervical radicular pain [address] [place] [address] [place] [address] [facility] [phone] [place] [address] Social History Tobacco Use [...] Body Mass Index 24.6 07/27/2011 10:04 AM 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
--- OUTSIDE RECORDS SUMMARY | 2022-01-20 12:44 | XMS_ITS | Encounter Summary ---
:1955 Author Organization [place] Address [address] [place] [address]. [place] [address] Care Team Providers Name Role Phone Lurdes Thomas MD Primary Care Provider [phone] Encounter Details Date Type Department Care Team Description 03/15/[address] [facility] Lurdes [facility] MD [place] extremity, right [address] [facility] [address] [place] [address] [place] [address] Social History Tobacco Use Types [...] limb documented in this encounter Care Teams Lift Operator Relationship Specialty Start Date End Date Lurdes Thomas MD PCP - General Internal Medicine 04/12/10 04/03/13 documented as of this encounter
--- OUTSIDE RECORDS SUMMARY | 2022-01-20 12:44 | XMS_ITS | Encounter Summary ---
:1955 Author Organization [place] Address [address] [place] [address]. [place] [address] Care Team Providers Name Role Phone Lurdes Thomas MD Primary Care Provider [phone] Reason for Visit Reason Comments Establish Care Encounter Details Date Type Department Care Team Description 04/12/2010 Office Visit [facility] Lurdes Thomas Erectile dysfunction (Primary Dx); Uzair Laughlin MD Parkinson disease (H); 1440 [employer] Hyperlipidemia LDL goal < 13 0; [place] [address] [place] Restless leg [phone] [place] [address] Social History Tobacco Use Types [...] Comments Blood Pressure 122/60 04/12/2010 10:07 AM PEANUT SHELLER Pulse 70 04/12/2010 10:07 AM PEANUT SHELLER Temperature - - Respiratory Rate - - Oxygen Saturation - - Inhaled Oxygen Concentration - - Weight 87 kg (191 lb 12.8 oz) 04/12/2010 10:07 AM PEANUT SHELLER Height 186.7 cm (6' 1.5) 04/12/2010 10:07 AM PEANUT SHELLER Body Mass Index 24.96 04/12/2010 10:07 AM PEANUT SHELLER documented in this encounter Progress Notes Lurdes [...] MG tablet Lurdes Laughlin MD Internal Medicine/Pediatrics UT SHELLER documented in this encounter Nursing Notes 04/12/2010 [...] (RLS) documented in this encounter Care Teams Office Electrician Relationship Specialty Start Date End Date Lurdes Thomas MD PCP - General Internal Medicine 04/12/10 04/03/13 documented as of this encounter
--- OUTSIDE RECORDS SUMMARY | 2022-01-20 12:44 | XMS_ITS | Encounter Summary ---
:1955 Author Organization [place] Address [address] [place] [address]. [place] [address] Care Team Providers Name Role Phone Lurdes Thomas MD Primary Care Provider [phone] Reason for Visit Reason Onset Date Comments Back Pain 07/20/2011 6 wk follow up Encounter Details Date Type Department Care Team Description 07/20/2011 Telephone [facility] Lurdes Oh Back Pain (6 wk follow 1440 [facility] MD [place] up) [place] [address] [facility] [phone] [address] (Wo rk) Social History Tobacco Use [...] for patient to return call or send Biahart message on how he is doing with backpain. Kristina Brandt RN Telephone Encounter - Maki Major - 08/22/2011 3:28 PM CDT LOW BACK PAIN nursing triage 6 week follow-up: Maki Major [facility] Telephone Encounter - Blanca Brandt - 07/20/2011 10:38 AM CST Please post pone and call patient for 6wk follow up of low back pain on or around 08/22/11. Kristina Brandt RN [facility] documented in this encounter Plan of Treatment Not on filedocumented as of this encounter Visit Diagnoses Not on filedocumented in this encounter Care Teams Credit Rating Inspector Relationship Specialty Start Date End Date Lurdes Thomas MD PCP - General Internal Medicine 04/12/10 04/03/13 documented as of this encounter
--- OUTSIDE RECORDS SUMMARY | 2022-01-20 12:44 | XMS_ITS | Encounter Summary ---
:1955 Author Organization [place] Address [address] [place] [address]. [place] [address] Care Team Providers Name Role Phone Lurdes Thomas MD Primary Care Provider [phone] Reason for Visit Reason Onset Date Comments Results 10/20/2010 Encounter Details Date Type Department Care Team Description 10/20/2010 Telephone [facility] Lurdes Rojas, Results 1440 [facility] [place] [address] [facility] [phone] [address] [place], [place] [address] (Wo rk) Social History Tobacco Use [...] hyperlipidemia documented in this encounter Care Teams Microsoft Windows Engineer Relationship Specialty Start Date End Date Lurdes Thomas MD PCP - General Internal Medicine 04/12/10 04/03/13 documented as of this encounter
--- OUTSIDE RECORDS SUMMARY | 2022-01-20 12:44 | XMS_ITS | Encounter Summary ---
:1955 Author Organization [place] Address [address] [place] [address]. [place] [address] Care Team Providers Name Role Phone Lurdes Thomas MD Primary Care Provider Reason for Visit Reason Comments Edema right foot and ankle Encounter Details Date Type Department Care Team Description 03/15/2011 Office Visit [facility] Lurdes Thomas Swelling of extremity, Uzair Laughlin MD right (Primary Dx) 1440 [facility] [place] [address] [place] [phone] [address] [place], [place] [address] Social History Tobacco Use [...] CDT Ultrasound of right leg at 4:15 [facility] [address] [place] [place] [address] Wait for results - will page me [...] about 2 weeks ago. Had traveled to [place] and [place] the week before. Only on right side. [...] lb 4.8 oz (88.587 kg) BMI 25.42 kg/v2Whfabcqxo Body mass index is 25.42 kg/(m^2) as [...] limb documented in this encounter Care Teams Photo Mask Cleaner Relationship Specialty Start Date End Date Lurdes Thomas MD PCP - General Internal Medicine 04/12/10 04/03/13 documented as of this encounter
--- OUTSIDE RECORDS SUMMARY | 2022-01-20 12:44 | XMS_ITS | Encounter Summary ---
:1955 Author Organization [facility] Address [address] [place] [address]. [place] [address] Care Team Providers Name Role Phone Lurdes Thomas MD Primary Care Provider [phone] Reason for Visit Reason Comments Physical Encounter Details Date Type Department Care Team Description 10/15/2010 Office Visit [facility] Lurdes Thomas Routine g eneral medical examination at a health care facility (Primary Dx); Uzair Laughlin MD Restless leg syndrome; [address] [employer] Hyperlipidemia LDL goal < 13 0; [place] [address] [place] Erectile dysfunction; [phone] [facility] Parkinson disease (H); RD Screening for colon cancer; [place], [place] Screening for p rostate cancer; [address] Screening for diabetes mellitus Social History Tobacco [...] effects. All Histories reviewed and updated in [facility]. ROS: C: NEGATIVE for fever, chills, [...] for diabetes mellitus Plan: Comprehensive metabolic panel Lrudes Laughlin MD Internal Medicine/Pediatrics documented in this [...] Signature PSA 0.85 0 - 4 ug/L [facility] Specimen Anatomical Collection Method Collection Time Receive d Time (Source) Location / / Volume Laterality Blood specimen 10/15/2010 8:32 AM 011 8:37 (specimen) CDT AM CDT Lurdes Thomas MD LAB - BLOOD ORDERABLES Performing Organization Address City/[facility] Code Phon e Number [facility] [address] [place] [address] [facility] Ferritin (10/15/2010 8:32 AM CDT) athologist Signature Ferritin 47 20 - 300 [facility] ng/mL CLINIC LAB Specimen Anatomical Collection Method Collection Time Receive d Time (Source) Location / / Volume Laterality Blood specimen 10/15/2010 8:32 AM 011 8:37 (specimen) CDT AM CDT Lurdes Thomas MD LAB - BLOOD ORDERABLES Performing Organization Address City/[facility] Phon e Number [facility] [address] [place] [address] [facility] (ABNORMAL) Comprehensive metabolic panel (10/15/2010 8:32 AM CDT) P athologist Signature Sodium 142 133 - 144 [facility] mmol/L CLINIC LAB Potassium 4.7 3.4 - 5.3 [facility] mmol/L [facility] Chloride 103 94 - 109 [facility] mmol/L [facility] Carbon Dioxide 28 20 - 32 [facility] mmol/L CLINIC LAB Anion Gap 11 6 - 17 [facility] mmol/L [facility] LAB Comment: CORRECTED ON 10/18 AT 1537: PRE VIOUSLY REPORTED 10 Glucose 101 (H) 60 - 99 mg/dL [facility] LIN LAB Urea Nitrogen 21 7 - 30 mg/dL [facility] N [facility] Creatinine 0.99 0.66 - 1.25 mg/dL [facility] GFR Estimate 79 >60 mL/min/1.7m2 [facility] Comment: CORRECTED ON 10/18 AT 1537: PRE VIOUSLY REPORTED Not Calculated GFR Estimate If Black >90 >60 mL/min/1.7m2 F [facility] CORRECTED ON 10/18 AT 1537: PREVIOUSLY REPORTED Not Tres culated CLINIC LAB Calcium 9.0 8.5 - 10.4 mg/dL [facility] LAB Bilirubin Total 0.7 0.2 - 1.3 mg/dL [facility] LAB Albumin 4.2 3.9 - 5.1 g/dL [facility] Comment: Reference range changed on 01/21. Protein Total 7.1 6.8 - 8.8 g/dL [facility] Comment: As of 07, reference range reflects plasma specimen type. Alkaline Phosphatase 77 40 - 150 U/L [facility] CLINIC LAB ALT 15 0 - 70 U/L [facility] CLIN IC LAB AST 31 0 - 55 U/L [facility] CLIN IC LAB Specimen Anatomical Collection Method Collection Time Receive d Time (Source) Location / / Volume Laterality Blood specimen 10/15/2010 8:32 AM 011 8:37 (specimen) CDT AM CDT Lurdes Thomas MD LAB - BLOOD ORDERABLES Performing Organization Address City/[facility] Phon e Number [facility] [address] [place] [address] [phone] [facility] LAB (ABNORMAL) Lipid Profile (10/15/2010 8:32 AM CDT) P athologist Signature Cholesterol 232 (H) 0 - 200 [facility] mg/dL CLINIC LAB Comment: LDL Cholesterol is the primary guide to therapy. The NCEP recommends further evaluation of: patients with cholesterol greater than 200 mg/dL if additional risk facto rs are present, cholesterol greater than 240 mg/dL, triglycerides greater than 1 50 mg/dL, or HDL less than 40 mg/dL. Triglycerides 95 0 - 150 mg/dL [facility] LAB HDL Cholesterol 56 40 - 110 mg/dL [facility] LAB LDL Cholesterol Calculated 157 (H) 0 - 129 mg/dL [facility] LAB Comment: LDL Cholesterol is the primary guide to therapy: LDL-cholesterol goal in high risk patients is <100 mg/dL and in very high risk patients is <70 mg/dL. VLDL-Cholesterol 19 0 - 30 mg/dL [facility] LAB Cholesterol/HDL Ratio 4.1 0.0 - 5.0 [facility] LAB Comment: CORRECTED ON 10/18 AT 1537: PRE VIOUSLY REPORTED 4.2 Specimen Anatomical Collection Method Collection Time Receive d Time (Source) Location / / Volume Laterality Blood specimen 10/15/2010 8:32 AM 011 8:37 (specimen) CDT AM CDT Lurdes Thomas MD LAB - BLOOD ORDERABLES Performing Organization Address [facility] Phon e Number [facility] [address] [place] [address] [phone] [facility] LAB documented in this encounter [...] mellitus documented in this encounter Care Teams Orthopedic Physician Relationship Specialty Start Date End Date Lurdes Thomas MD PCP - General Internal Medicine 04/12/10 04/03/13 documented as of this encounter
--- OUTSIDE RECORDS SUMMARY | 2022-01-20 12:45 | XMS_ITS | Encounter Summary ---
:1955 Author Organization formerly [facility] Address [address] [place] [address] Care Team Providers Name Role Phone Samantha Stauffer MD Primary Care Provider [phone] Encounter Details Date Type Department Care Team Description 02/09/2021 Notes/Orders formerly [facility] Neuroscience Mefsin Morgan SLP Center Speech Therap y [address] [place] [address] [id number] [place] [address] [phone] Social History Tobacco Use Types Packs/Day Years Used Date Smoking Tobacco: Never Smokeless Tobacco: Never Alcohol Use Standard Drinks/Week Comments Not Currently 0 (1 standard drink = 0.6 oz pure alcoho l) Sex Assigned at Date Recorded Not on file documented as of this encounter Progress Notes Mesfin Morgan SLP - 02/09/2021 10:30 AM CDT SPEECH THERAPY DISCHARGE NOTE Andrew Pang [phone] Payor: [facility] / Plan: [facility] OUT OF STATE / Product Type: Commercial [...] filedocumented in this encounter Care Teams Animal Ecologist Relationship Specialty Start Date End Date Samantha Stauffer MD PCP - General Family Practice 12/12/191999 [place] [address] documented as of this encounter
--- OUTSIDE RECORDS SUMMARY | 2022-01-20 12:45 | XMS_ITS | Encounter Summary ---
:1955 Author Organization [facility] Address [address], [place] [address] Care Team Providers Name Role Phone Samantha Stauffer MD Primary Care Provider [phone] Reason for Visit Reason Comments Medication Questions Encounter Details Date Type Department Care Team Description 06/11/2021 Telephone [facility] Doris Arauz food cooking machine operator Questions [address] [place] [phone] Social History Tobacco Use Types Packs/Day [...] left again. Chloé Denny 06/16/2021, 1:21 PM WORKING MACHINE OPERATOR Chloé Denny - 06/14/2021 3:32 PM CST RN called pt to advise him to call Irwin Sanjeev Boyer back regarding his rx. No answer. Detailed voicemail left. Chloé Denny 06/14/2021, 3:33 PM WORKING MACHINE OPERATOR Doris Arauz RN - 06/11/2021 1:55 PM CST NSC pt. [facility] called because they are in need of more information to contact the patient. They have attempted 5 times with not luck. They are requesting a call back at [phone] WORKING MACHINE OPERATOR documented in this encounter Plan of Treatment Not on filedocumented as of this encounter Visit Diagnoses Not on filedocumented in this encounter Care Teams Stretch Machine Operator Relationship Specialty Start Date End Date Samantha Stauffer MD PCP - General Family Practice 12/12/191999 [place] [phone] documented as of this encounter
--- OUTSIDE RECORDS SUMMARY | 2022-01-20 12:45 | XMS_ITS | Encounter Summary ---
:1955 Author Organization [facility] Address [address] [place] [address] Care Team Providers Name Role Phone Samantha Stauffer MD Primary Care Provider [phone] Reason for Visit Reason Comments Prior Authorization Request Amantadine HCl ER (GOCOVRI ) 137 MG CP24 Encounter Details Date Type Department Care Team Description 10/27/2020 [facility]phone [facility] Prior A uthorization [facility] MD Prem Request (Amantadine Neurology [address] HCl ER (GOCOVRI) [address] MG CP24) [place] [address] [place], [place] [phone] [id number] Social History Tobacco Use Types Packs/Day Years Used Date Smoking Tobacco: Never Smokeless Tobacco: Never Alcohol Use Standard Drinks/Week Comments Yes 0 (1 standard drink = 0.6 oz pure alcoho l) Sex Assigned at Date Recorded Not on file documented as of this encounter Nursing Notes Chloé Denny - 11/06/2020 8:37 AM CDT Prior authorization approved -Nida Payer: [facility] CaseId:[id number];Status:Approved;Review Type:Prior Auth;Coverage Start Date:09/27/2020;Coverage End Date:10/27/2021; RN [...] on filedocumented in this encounter Care Teams Insulation Worker Furnace Installer Relationship Specialty Start Date End Date Samantha Stauffer MD PCP - General Family Practice 12/12/191999 [place] [address] documented as of this encounter
--- OUTSIDE RECORDS SUMMARY | 2022-01-20 12:45 | XMS_ITS | Encounter Summary ---
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 Reason for Visit Therapies (Routine) - Closed Specialty Diagnoses / Procedures Referred By Contact Refer red To Contact Diagnoses Parkinson's disease (HRC) Dysphagia, unspecified type Maria Esther Phan MD [address] [place] [phone] Referral ID Status Reason Start Date Expiration Date Visits Requ ested Visits Authorized [id number] Closed 10/28/2020 10/28/[phone] Encounter Details Date Type Department Care Team Description 11/19/2020 Office Visit Mesfin Fong, Dysphagia, o ropharyngeal phase (Primary Dx); Neuroscience Center CORE ANALYST Parkinson's disease (HRC); Speech Therapy [address] [place] [address] Hypokinetic Parkinsonian dysphonia (HRC) [address] [place] [id number] [address] [place] [address] [phone] Social History Tobacco Use Types Packs/Day Years [...] reach out to you soon. JB Samuels [facility] -- [facility] Licensed Speech Language Pathologist -- Outpatient appointments [...] set to have EGD done tomorrow in [place], [place]. Hopefully this will lead to a [...] a regular diet with thin liquids Blue Rijuven/Iagnosis Insurance Info: Today's Visit Number: 1 Progress [...] to IDDSI liquid framework: Davina Alegria, Mapping [employer]'s Varib[employer] Barium Products to the IDDSI Framework. [employer]DSI website. ht tps://iddsi.org/IDDSI/media/images/Publications/Tfibosz-Aahgkxp-rj-IDDSI-Framewo rk.pdf. October 2016. Varibar Thin 40% IDDSI Level 0-Thin Varibar [place] 40% IDDSI Level 2-Mildly Thick Varibar Thin [...] Dysphonia documented in this encounter Care Teams Station Operator Relationship Specialty Start Date End Date Samantha Stauffer MD PCP - General Family Practice 12/12/191999 [place] [address] documented as of this encounter
--- OUTSIDE RECORDS SUMMARY | 2022-01-20 12:45 | XMS_ITS | Encounter Summary ---
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
--- OUTSIDE RECORDS SUMMARY | 2022-01-20 12:45 | XMS_ITS | Encounter Summary ---
:1955 Author Organization [facility] Address [address], [place] [address] Care Team Providers Name Role Phone Samantha Stauffer MD Primary Care Provider [phone] Reason for Visit Reason Comments Refill Encounter Details Date Type Department Care Team Description 05/24/2020 Refill [facility] Neuroscience Maria Esther Reis MD Refill Center Neurology 39[address] [facility] [address] [facility] [place] [address] [place] [address] [phone] Social History Tobacco Use Types Packs/Day Years [...] on filedocumented in this encounter Care Teams Type Rolling Machine Operator Relationship Specialty Start Date End Date Samantha Stauffer MD PCP - General Family Practice 12/12/191999 [place] [address] documented as of this encounter
--- OUTSIDE RECORDS SUMMARY | 2022-01-20 12:45 | XMS_ITS | Encounter Summary ---
:1955 Author Organization [facility] Address [address] [place] [address] Care Team Providers Name Role Phone Samantha Stauffer MD Primary Care Provider [phone] Reason for Referral Procedure/Equipment (Routine) - Incomplete Specialty Diagnoses / Procedures Referred By Contact Refer red To Contact Diagnoses Parkinson's disease (HRC) Dysphagia, unspecified type ParashosMaria Esther MD Procedures [place] Video Swallow Study [address] [place], [place] [address] Referral ID Status Reason Start Date Expiration Date Visits V isits Requested Authorized [id number] Incomplete 11/04/2020 02/03/2022 1 1 Therapies (Routine) - Closed Specialty Diagnoses / Procedures Referred By Contact Refer red To Contact Diagnoses Parkinson's disease (HRC) Dysphagia, unspecified type ParashoMaria Esther jacques MD [address] [place], [place] [address] Referral ID Status Reason Start Date Expiration Date Visits Requ ested Visits Authorized [id number] Closed 11/04/2020 11/04/2021 1 1 Scheduling Instructions Your provider has recommended an appoint ment with a [facility] Speech Therapist. Please call for your appointment you may call [facility] Outpatient Rehabilitation at [phone]. We suggest you call your [facility] insurance company about your coverage and benefits for this appointment. Reason for Visit Reason Comments Orders Needed FL VIDEO SWALLOW STUDY Encounter Details Date Type Department Care Team Description 11/04/2020 Telephone [facility] Maria Esther Phan Orders Needed ([place] [facility] MD Jorden VIDEO SWALLOW STUDY ) Neurology [address] [facility] [address] [place] [address] [place], [place] [phone] (Wo rk) Social History Tobacco Use Types [...] had done Jun). RN can see the [employer] order that requests video swallow study (with radiology and speech, but they need the actual order along with the [employer] order. The order is pended. Dr. Phan [...] CDT EXAM: [place] VIDEO SWALLOW STUDY [facility] DATE/TIME: 11/19/2020 11:56 AM INDICATION: [...] original. EXAM: [place] VIDEO SWALLOW STUDY [facility] DATE/TIME: 11/19/2020 11:56 AM INDICATION: [...] type documented in this encounter Care Teams Revenue Agent Relationship Specialty Start Date End Date Samantha Stauffer MD PCP - General Family Practice 12/12/191999 [place] [address] documented as of this encounter
--- OUTSIDE RECORDS SUMMARY | 2022-01-20 12:45 | XMS_ITS | Encounter Summary ---
:1955 Author Organization [facility] Address [address], [place] [address] Care Team Providers Name Role Phone Samantha Stauffer MD Primary Care Provider [phone] Reason for Visit Reason Comments Refill Encounter Details Date Type Department Care Team Description 05/18/2021 Refill [facility] Neuroscience Maria Esther Reis MD Refill Center Neurology [address] [facility] 295 [facility] [place] [address] [place] [address] [phone] Social History Tobacco Use Types Packs/Day Years [...] on filedocumented in this encounter Care Teams Tacker Elastic Band Relationship Specialty Start Date End Date Samantha Stauffer MD PCP - General Family Practice 12/12/191999 [place] [address] documented as of this encounter
--- OUTSIDE RECORDS SUMMARY | 2022-01-20 12:45 | XMS_ITS | Encounter Summary ---
:1955 Author Organization [facility] Address [address], [place] [address] Care Team Providers Name Role Phone Samantha Stauffer MD Primary Care Provider [phone] Reason for Visit Reason Comments QUESTIONS, GENERAL Encounter Details Date Type Department Care Team Description 07/24/2020 Telephone [facility] Brower, GENERAL [facility] MD Prem Neurology [address] [facility] [address] [place] [phone] (Wo rk) Social History Tobacco Use Types [...] a follow up appt with him at [facility]. Jeannette Porras RN Maximo Sadler - 07/24/2020 9:50 AM CST Patient is requesting a call back regarding questions he has about covid vaccine and also about DBS battery. Please call back when available, Thank you. Maximo Julio 07/24/2020, 9:52 AM T TENDER documented in this encounter Plan of Treatment Not on filedocumented as of this encounter Visit Diagnoses Not on filedocumented in this encounter Care Teams Wire Machine Cutter Relationship Specialty Start Date End Date Samantha Stauffer MD PCP - General Family Practice 12/12/191999 [place] [address] documented as of this encounter
--- OUTSIDE RECORDS SUMMARY | 2022-01-20 12:45 | XMS_ITS | Encounter Summary ---
:1955 Author [facility] Address [address] [place] [address] Care Team Providers Name Role Phone Samantha Stauffer MD Primary Care Provider Reason for Visit Reason Comments Medication Questions Encounter Details Date Type Department Care Team Description 12/30/2020 Telephone [facility] Walker Medicat ion Questions [facility] MD Prem Neurology 39[address] [facility] [address] [place] [address] [place], [place] [phone] (Wo rk) Social History Tobacco Use Types [...] parkinson's. Dr. Thompson can be reached at [phone]. Thank you documented in this encounter Plan of Treatment Not on filedocumented as of this encounter Visit Diagnoses Not on filedocumented in this encounter Care Teams Field Sales Executive Relationship Specialty Start Date End Date Samantha Stauffer MD PCP - General Family Practice 12/12/191999 [place] [address] documented as of this encounter
--- OUTSIDE RECORDS SUMMARY | 2022-01-20 12:45 | XMS_ITS | Encounter Summary ---
:1955 Author Organization [facility] Address [address], [place] [address] Care Team Providers Name Role Phone Samantha Stauffer MD Primary Care Provider [phone] Reason for Visit Procedure/Equipment (Routine) - Incomplete Specialty Diagnoses / Procedures Referred By Contact Refer red To Contact Diagnoses Parkinson's disease ([facility]) Dysphagia, unspecified type Sylvester, Maria Esther Amaro MD Procedures [place] Video Swallow Study [address] [place], [place] [address] Referral ID Status Reason Start Date Expiration Date Visits V isits Requested Authorized [id number] Incomplete 11/04/2020 02/03/2022 1 1 Encounter Details Date Type Department Care Team Description 11/19/2020 Ancillary [facility] Parashos, Pre-procedura l laboratory examination (Primary Dx); Procedure Neuroscience Center Maria Esther Amaro MD Parkinson's disease ([facility]); Radiology Fluoro [address] [place] Dysphagia, unspecified type [address] [place] [address] [place], [place] [phone] Social History Tobacco Use Types Packs/Day Years [...] CDT EXAM: [place] VIDEO SWALLOW STUDY [facility] DATE/TIME: 11/19/2020 11:56 AM INDICATION: Difficulty [...] original. EXAM: [place] VIDEO SWALLOW STUDY [facility] DATE/TIME: 11/19/2020 11:56 AM INDICATION: Difficulty [...] dose documented in this encounter Care Teams Encephalographer Relationship Specialty Start Date End Date Samantha Stauffer MD PCP - General Family Practice 12/12/191999 [place] [address] documented as of this encounter
--- OUTSIDE RECORDS SUMMARY | 2022-01-20 12:45 | XMS_ITS | Clinical Summary ---
:1955 Author Organization [facility] Address [address] [place] [address] Care Team Providers Name Role Phone Samantha Stauffer MD Primary Care Provider [phone] Source Comments You are receiving this document [...] for each transition of care or referral. [facility] Allergies No known active allergies Medications Medication [...] balance, gait, and endurance 0 12/04/2020 12/04/2020 Immunizations Name Administration Dates Next Due H1n1 [...] this topic Medical Devices Implanted Type Area Warp Knitter Helper Device Shelf Model / Identifier Expiration Serial / Date Lot [employer] - [id number] DEVICE Right: [employer] - 2020 [id number] / Implanted: Qty: 1 on 12/12/2019 by Jorge L Kaiser MD at [facility] CHEST Neurological [id number] / NA Insurance Payer Benefit Plan / Subscriber ID Effective Dates Phone Addre ss Type Group MEDICARE MEDICARE PART [id number] 2018-Presfederica [phone] Medicare A t 27 BCBS BCBS OUT OF [id number] 2017-Ignacio [address] [address] Commercial [place] [id number] [address] (Home) [place] [address] Andrew Pang Personal/Famil Self 1955 [phone] [address] y (Home) [place] [address] Andrew Pang Personal/Famil Self 1955 [address] (Home) [place] [address] [address] Advance Directives Latest Code Status on File Code Status Date Activated Date Inactivated Comments Full Code 12/12/2019 8:30 AM 12/12/2019 9:48 PM Care Teams Tank Inspector Relationship Specialty Start Date End Date Samantha Stauffer MD PCP - General Family Practice 12/12/191999 [place] [address]
--- OUTSIDE RECORDS SUMMARY | 2022-01-20 12:45 | XMS_ITS | Encounter Summary ---
:1955 Author Organization [facility] Address [address] [place] [address] Care Team Providers Name Role Phone Samantha Stauffer MD Primary Care Provider [phone] Reason for Visit Reason Comments Post-Op Check Encounter Details Date Type Department Care Team Description 01/24/2020 Telemedicine Specialty Center 3931 Divina Kaiser MD Parkinson's disease Neurosurgery 3931 [facility] ([facility]) (Primary Dx) [facility] [address] [phone] Social History Tobacco Use Types Packs/Day Years [...] Primary documented in this encounter Care Teams Underwriting Technician Relationship Specialty Start Date End Date Samantha Stauffer MD PCP - General Family Practice 12/12/191999 [place] [address] documented as of this encounter
--- OUTSIDE RECORDS SUMMARY | 2022-01-20 12:45 | XMS_ITS | Encounter Summary ---
:1955 Author Organization [facility] Address [address], [place] [address] Care Team Providers Name Role Phone Samantha Stauffer MD Primary Care Provider [phone] Encounter Details Date Type Department Care Team Description 12/21/2020 [facility] Princess Phan, [facility] [address] [place] [address] [place] [address] [phone] (Wo rk) Social History Tobacco Use Types [...] has no further recommendations at this time. Andrwe continues to have a difficult time walking [...] info edited w/ current number : ph. [phone]) Natasha reports that since decreasing RYTARY to [...] addressed first. Pt has an appt with [facility] in [place] tomorrow (12/25) as well as a f/u [...] disconnected. Number is disconnected. RN sent a KSE message encouraging them to give us a call. Chloé Denny 12/22/2020, 4:19 PM Chloé Denny - 12/21/2020 3:55 PM CDT RN attempted to call Natasha back 2 x @ . [phone] and line was disconnected (message states destination not assigned). Then called . [phone], no answer. [facility] Chloé Denny 12/21/2020, 3:57 PM Maria Esther [...] on filedocumented in this encounter Care Teams Plan Coordinator Relationship Specialty Start Date End Date Samantha Stauffer MD PCP - General Family Practice 12/12/191999 [place] [address] documented as of this encounter
--- OUTSIDE RECORDS SUMMARY | 2022-01-20 12:45 | XMS_ITS | Encounter Summary ---
:1955 Author Organization [facility] Address [address] [place] [address] Care Team Providers Name Role Phone Samantha Stauffer MD Primary Care Provider [phone] Reason for Visit Reason Comments Nurse Visit Encounter Details Date Type Department Care Team Description 12/25/2019 Office Visit Specialty Center 3931 Nurse, P3931 Nsu En counter for post Neurosurgery surgical wound check [address] [place] (Primary Dx) [place], [place] [address] Social History Tobacco Use Types Packs/Day Years [...] in another medication such as Percocet or Cadet). ?? If you are still taking prescription [...] Primary documented in this encounter Care Teams Lead Miner Blasting Relationship Specialty Start Date End Date Samantha Stauffer MD PCP - General Family Practice 12/12/191999 [place] [address] documented as of this encounter
--- OUTSIDE RECORDS SUMMARY | 2022-01-20 12:45 | XMS_ITS | Encounter Summary ---
:1955 Author Organization [facility] Address [address], [place] [address] Care Team Providers Name Role Phone Samantha Stauffer MD Primary Care Provider [phone] Reason for Visit Reason Comments Refill Encounter Details Date Type Department Care Team Description 11/01/2020 Refill [facility] Neuroscience Maria Esther Reis MD Refill Center Neurology 3931 [facility] [address] [facility] [place] [address] [place] [address] [phone] Social History Tobacco Use Types Packs/Day Years [...] on filedocumented in this encounter Care Teams Associate Professor Of Library Science Relationship Specialty Start Date End Date Samantha Stauffer MD PCP - General Family Practice 12/12/191999 [place] [address] documented as of this encounter
--- OUTSIDE RECORDS SUMMARY | 2022-01-20 12:45 | XMS_ITS | Encounter Summary ---
:1955 Author Organization [facility] Address [address] [place] [address] Care Team Providers Name Role Phone Samantha Stauffer MD Primary Care Provider [phone] Reason for Visit Reason Comments QUESTIONS, GENERAL Battery Encounter Details Date Type Department Care Team Description 12/07/2020 Telephone [facility], GENERAL [facility] Center MD Prem (Battery ) Neurology 3931 [facility] [address] [facility] [address] [place], [place] [phone] (Wo rk) Social History Tobacco Use Types Packs/Day Years Used Date Smoking Tobacco: Never Smokeless Tobacco: Never Alcohol Use Standard Drinks/Week Comments Not Currently 0 (1 standard drink = 0.6 oz pure alcoho l) Sex Assigned at Date Recorded Not on file documented as of this encounter Nursing Notes Chloé Denny - 12/09/2020 3:53 PM CDT RN called pt's spouse back (ph. [phone]) to relay Dr. Phan' recommendations. Verbalizes understanding and they will adjust pt's RYTARY to tid first. RN also sent recommendations via [employer] message. Encouraged to call back with any [...] on filedocumented in this encounter Care Teams Welding Inspector Relationship Specialty Start Date End Date Samantha Stauffer MD PCP - General Family Practice 12/12/191999 [place] [address] documented as of this encounter
--- OUTSIDE RECORDS SUMMARY | 2022-01-20 12:45 | XMS_ITS | Encounter Summary ---
:1955 Author Organization [facility] Address [address] [place] [address] Care Team Providers Name Role Phone Samantha Stauffer MD Primary Care Provider [phone] Reason for Visit Reason Comments RELEASE OF RECORDS Encounter Details Date Type Department Care Team Description 12/15/2020 Telephone [email or web address] Maria Esther Phan RELEASE OF RECORDS Neuroscience Center MD Prem Neurology [address] [phone] (Wo rk) Social History Tobacco Use Types [...] original note were not included. Records from [facility] received and sent to scanning. Kelly Encarnacion CMA 12/15/2020, 2:19 PM documented in this encounter Plan of Treatment Not on filedocumented as of this encounter Visit Diagnoses Not on filedocumented in this encounter Care Teams Gyroscopic Instrument Mechanic Relationship Specialty Start Date End Date Samantha Stauffer MD PCP - General Family Practice 12/12/191999 [place] [address] documented as of this encounter
--- OUTSIDE RECORDS SUMMARY | 2022-01-20 12:45 | XMS_ITS | Encounter Summary ---
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 Call [facility] Outpatient Rehabilitation at . We suggest you call your health insurance company about your coverage an d benefits for this appointment. Encounter Details Date Type Department Care Team Description 11/13/2020 Office Visit Maria Esther Mckeon on's disease (HRC) (Primary Dx); Neuroscience Center MD Prem Dysphagia, unspecified type; Neurology [address] [place] [address] Dyskinesia due to Parkinson' s disease (HRC); [address] [place] [address] [place], [place] [phone] [phone] Social History Tobacco Use Types Packs/Day Years [...] the endoscopy isplanned. If all those things garment turner to be okay then I would have [...] we will arrange for programming session at [place]. Next 6. Otherwise follow-up with me in [...] fall documented in this encounter Care Teams Edge Trimmer Relationship Specialty Start Date End Date Samantha Stauffer MD PCP - General Family Practice 12/12/191999 [place] [address] documented as of this encounter
--- OUTSIDE RECORDS SUMMARY | 2022-01-20 12:45 | XMS_ITS | Encounter Summary ---
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) At risk for falling Maria Esther Phan MD 3937 [place], [place] [address] Referral ID Status Reason Start Date Expiration Date Visits Requ ested Visits Authorized [id number] Closed 11/13/2020 11/13/2021 1 1 Encounter Details Date Type Department Care Team Description 12/04/2020 Therapy [facility] Carlos Cartwright, Prema n's disease (HRC) (Primary Dx); Neuroscience Center PT Impaired functional mobility, balance, g ait, and endurance Physical Therapy [address] [address] [phone] Social History Tobacco Use Types Packs/Day Years [...] discussion mentioned that they live close to [facility] and it would be very difficult to attend physical therapy at this facility on a weekly to bi-weekly basis. After long discussion with patient and his , decision had been made for them to call [facility] and request a physical therapist that is certified in the [employer] program that could effectively treat patient with less stress on family (reducing driving). Did educate patient on different Parkinson's classes in the community, our [facility] PD programs and on [employer] program. Patient and his were satisfied [...] Name Type Priority Associated Diagnoses Order S [facility] Physical Therapy Referral Routine Parkinson's dis ease (HRC) Ordered: 11/13/2020 Dysphagia, unspe cified type Dyskinesia due to Parkinson' s disease (HRC) At risk for falling documented as of this encounter Visit Diagnoses Diagnosis Parkinson's disease (HRC) - Primary Impaired functional mobility, balance, g ait, and endurance documented in this encounter Care Teams Earth Science Professor Relationship Specialty Start Date End Date Samantha Stauffer MD PCP - General Family Practice 12/12/191999 [place] [address] documented as of this encounter
--- OUTSIDE RECORDS SUMMARY | 2022-01-20 12:45 | XMS_ITS | Encounter Summary ---
:1955 Author Organization [facility] Address [address], [place] [address] Care Team Providers Name Role Phone Samantha Stauffer MD Primary Care Provider [phone] Reason for Referral Medication Prior Authorization (Routine) - Authorized Specialty Diagnoses / Procedures Referred By Contact Refer red To Contact Maria Esther Phan MD 3931 [place], [place] [address] Referral ID Status Reason Start Date Expiration Date Visits V isits Requested Authorized [id number] Authorized 1 1 E REDUCTION COORDINATOR Reason for Visit Reason Onset Date Comments Refill 07/15/2020 Amantadine HCl ER (G OCOVRI) 137 MG CP24 Encounter Details Date Type Department Care Team Description 07/15/[address] [facility] (Amantadine HCl Neuroscience Center MD Prem ER (GOCOVRI) 137 MG Neurology 3931 [facility] CP24) [address] [place] [address] [phone] (Wo rk) Social History Tobacco Use Types [...] at bedtime. Sheldon Mays 07/15/2020, 8:49 AM E REDUCTION COORDINATOR documented in this encounter Plan of Treatment Not on filedocumented as of this encounter Visit Diagnoses Not on filedocumented in this encounter Care Teams Model Maker Fiberglass Relationship Specialty Start Date End Date Samantha Stauffer MD PCP - General Family Practice 12/12/191999 [place] [address] documented as of this encounter
--- OUTSIDE RECORDS SUMMARY | 2022-01-20 12:45 | XMS_ITS | Encounter Summary ---
:1955 Author Organization [facility] Address [address] [place] [address] Care Team Providers Name Role Phone Samantha Stauffer MD Primary Care Provider [phone] Reason for Visit Reason Comments Prior Authorization Request Amantadine HCl ER (GOCOVRI ) 137 MG CP24 Encounter Details Date Type Department Care Team Description 10/14/2021 [facility] Prior A ohhor[facility] Neuroscience Center MD Prem Request (Amantadine Neurology [address] HCl ER (GOCOVRI) [address] MG CP24) [place] [address] [place], [place] [phone] Social History Tobacco Use Types Packs/Day Years Used Date Smoking Tobacco: Never Smokeless Tobacco: Never Alcohol Use Standard Drinks/Week Comments Not Currently 0 (1 standard drink = 0.6 oz pure alcoho l) Sex Assigned at Date Recorded Not on file documented as of this encounter Nursing Notes Chloé Denny - 10/14/2021 2:35 PM CDT Approved Prior authorization approved Payer: [facility] CaseId:[id number];Status:Approved;Review Type:Prior Auth;Coverage Start Date:09/14/2021;Coverage End Date:10/14/2022; Approval Details Authorized from September 14, 2021 to October 14, 2022 Chloé Denny - 10/14/2021 1:09 PM CDT ePA requested through [facility]. Chloé Denny 10/14/2021, 1:09 PM Sylvia Burgess - 10/14/2021 9:10 AM CDT There is an approval through October 27 Recd fax from [employer], Please initiate new PA- Amantadine HCl ER (GOCOVRI) 137 MG CP24 Please see the providers right fax folder to review the fax for this TE. Sylvia Burgess 10/14/2021, 9:10 AM documented in this encounter Plan of Treatment Not on filedocumented as of this encounter Visit Diagnoses Not on filedocumented in this encounter Care Teams Ice Cream Vendor Relationship Specialty Start Date End Date Samantha Stauffer MD PCP - General Family Practice 12/12/191999 [place] [address] documented as of this encounter
--- OUTSIDE RECORDS SUMMARY | 2022-01-20 12:45 | XMS_ITS | Encounter Summary ---
:1955 Author Organization [facility] Address [address] [place] [address] Care Team Providers Name Role Phone Samantha Stauffer MD Primary Care Provider [phone] Reason for Referral Therapies (Routine) - Closed Specialty Diagnoses / Procedures Referred By Contact Refer red To Contact Diagnoses Parkinson's disease (HRC) Dysphagia, unspecified type Maria Esther Phan MD 3932 [place], [place] [address] Referral ID Status Reason Start Date Expiration Date Visits Requ ested Visits Authorized [id number] Closed 10/28/2020 10/28/2021 999 999 Scheduling Instructions Your provider has recommended an appoint ment with a [facility] Therapist. Please call for your appointment you may call [facility] at [phone]. We suggest you call your [facility] insurance company about your coverage and benefits for this appointment. Reason for Visit Reason Comments Pain Stomach and trouble swallowi ng Encounter Details Date Type Department Care Team Description 10/28/2020 [facility] ([facility] MD Prem trouble swallowing) Neurology [facility] [address] [address] [place], [place] [phone] (Wo rk) Social History Tobacco Use Types [...] call and schedule the swallow study (ph. [phone]) Spouse reports that pt went to see a provider at [facility] last (10/29) and was prescribed generic Prilosec. This has been helpful thus far. They also saw pt's PCP this morning (11/04) who is recommending a GI consult. Dr. Phan: Do you have a preferred asbestos siding mechanic you would recommend to someone who has [...] (HRC) documented in this encounter Care Teams Pipe Smoking Machine Offbearer Relationship Specialty Start Date End Date Samantha Stauffer MD PCP - General Family Practice 12/12/191999 [place] [id number] documented as of this encounter
--- OUTSIDE RECORDS SUMMARY | 2022-01-20 12:45 | XMS_ITS | Encounter Summary ---
:1955 Author Organization [facility] Address [address] [place] [address] Care Team Providers Name Role Phone Samantha Stauffer MD Primary Care Provider [phone] Encounter Details Date Type Department Care Team Description 07/14/2021 Telephone [facility] Princess Phan, Center Neurology [address] 3931 [place] [address] [place] [address] [phone] (Wo rk) Social History Tobacco Use Types [...] verbalizes understanding. Chloé Denny 07/16/2021, 5:09 PM OF [place] Doris Slaughter RN - 07/16/2021 4:43 PM CST RN looked at RX, PA approval through 10/2021. Doris Slaughter RN 07/16/2021, 4:44 PM OF [place] Karin Dill - 07/16/2021 4:39 PM CST Pt calling stating they need a PA for this rx, please advise, thanks! Karin Dill 07/16/2021, 4:40 PM OF [place] Chloé Denny - 07/16/2021 2:05 PM CST Prescription form not necessary. RN spoke with pharmacy this morning and gave verbal. Sheldon Merlos - 07/16/2021 1:06 PM CST Images from the original note were not included. Recd universal prescription/ pharmacy intake form [facility] Placed in providers right fax Sheldon Mays 07/16/2021, 1:07 PM OF [place] Chloé Denny - 07/16/2021 9:31 AM CST RN called [facility] (ph. [phone]) to give additional information per pt request [...] please call Cristhian Dueñas 07/14/2021, 12:13 PM OF [place] documented in this encounter Plan of Treatment Not on filedocumented as of this encounter Visit Diagnoses Not on filedocumented in this encounter Care Teams Show Host/Hostess Relationship Specialty Start Date End Date Samantha Stauffer MD PCP - General Family Practice 12/12/191999 [place] [address] documented as of this encounter
--- OUTSIDE RECORDS SUMMARY | 2022-01-20 12:46 | XMS_ITS | Encounter Summary ---
:1955 Author [facility] Address [address], [place] [address] Care Team Providers Name Role Phone Lurdes Thomas MD Primary Care Provider Reason for Visit Reason Comments Dysphagia Encounter Details Date Type Department Care Team Description 06/24/2019 Office Visit [facility], [facility] oropharyngeal phase Speech Therapy [address] (Primary Dx) [address] [place], [place] [address] [place] [address] [phone] Social History Tobacco Use Types Packs/Day Years [...] goals established as no further intervention from FELT FINISHER service is warranted at this time. VISIT INFORMATION [place] Insurance Info: Today's Visit Number: 1 [...] Today: Exam completed Results reviewed. Pt and FELT FINISHER watched MBSS video together with FELT FINISHER pointing out anatomical landmarks and explaining how [...] Total Treatment Time: 35 minutes Nabila Morrell CCC-FELT FINISHER 06/24/2019 GUARD INSPECTOR documented in this encounter Plan of Treatment Not on filedocumented as of this encounter Visit Diagnoses Diagnosis Dysphagia, oropharyngeal phase - Primary documented in this encounter Care Teams Windows Infrastructure Engineer Relationship Specialty Start Date End Date Lurdes Thomas MD PCP - General 06/18/14 12/11/19 documented as of this encounter
--- OUTSIDE RECORDS SUMMARY | 2022-01-20 12:46 | XMS_ITS | Encounter Summary ---
:1955 Author Organization [facility] Address [address], [place] [address] Care Team Providers Name Role Phone Lurdes Thomas MD Primary Care Provider Reason for Visit Reason Comments QUESTIONS, GENERAL MRI and DBS Encounter Details Date Type Department Care Team Description 10/22/2018 Telephone [facility] Hilario, RN QUESTIONS, GENERAL (MRI [address] arriaga and DBS) [place], [place] [address] [facility] [phone] Social History Tobacco Use Types Packs/Day Years [...] back. They have an appointment On at [facility] and he is receiving his care over [...] on filedocumented in this encounter Care Teams Peripatologist Relationship Specialty Start Date End Date Lurdes Thomas MD PCP - General 06/18/14 12/11/19 documented as of this encounter
--- OUTSIDE RECORDS SUMMARY | 2022-01-20 12:46 | XMS_ITS | Encounter Summary ---
:1955 Author Organization [facility] Address [address], [place] [address] Care Team Providers Name Role Phone Lurdes Thomas MD Primary Care Provider Reason for Visit Procedure/Equipment (Routine) - Incomplete Specialty Diagnoses / Procedures Referred By Contact Refer red To Contact Diagnoses Dysphagia, oropharyngeal phase [place], Maria Esther Amaro MD Procedures FL Video Swallow Study 3931 [place], [place] [address] Referral ID Status Reason Start Date Expiration Date Visits V isits Requested Authorized [id number] Incomplete 06/24/2019 09/22/2020 1 1 Encounter Details Date Type Department Care Team Description 06/24/2019 Ancillary [facility], Dysphagia, Procedure Neuroscience Center Maria Esther Amaro MD oropharyngeal phase Radiology Fluoro [address] [place] [address] [place] [address] [facility] [phone] [place] [address] Social History Tobacco Use Types Packs/Day [...] PM Dysphagia, Resul ts for this STUDY PLANTING MATERIAL CARRIER oropharyngeal phase procedur e are in the results section. documented in this encounter Results FL Video Swallow Study (06/24/2019 4:10 PM PLANTING MATERIAL CARRIER) Anatomical Region Laterality Modality Neck, Chest Radio Fluoroscopy Specimen (Source) Anatomical Collection Method Collection Time Re ceived Time Location / / Volume Laterality 06/24/2019 4:10 PM PLANTING MATERIAL CARRIER Narrative 06/24/2019 5:11 PM PLANTING MATERIAL CARRIER EXAM: [place] VIDEO SWALLOW STUDY LOCATION: [facility] DATE/TIME: 06/24/2019 4:10 PM INDICATION: Difficulty [...] original. EXAM: FL VIDEO SWALLOW STUDY LOCATION: [facility] DATE/TIME: 06/24/2019 4:10 PM INDICATION: Difficulty [...] (VARIBAR NECTAR) 40 Given 06/24/2019 4:12 PM PLANTING MATERIAL CARRIER 20 mL % oral suspension 20 mL 20 mL, Oral, ONCE (NON-SCHEDULED), Starting on 06/24/19 at 1611, Until Discontinued, For 3 doses Inactive Administered Medications - up to 3 most recent administrations Medication Order MAR Action Action Date Dose Rate Site barium sulfate (ENTERO VU) Given 06/24/2019 4:12 PM PLANTING MATERIAL CARRIER 20 mL suspension 20 mL 20 mL, Oral, ONCE (NON-SCHEDULED), Starting on Mon06/24/19 at 1611, For 1 dose barium sulfate (EZ-DISK) tablet 700 mg Given 06/24/2019 4:12 PM PLANTING MATERIAL CARRIER 700 mg 700 mg, Oral, ONCE (NON-SCHEDULED), Starting on 06/24/19 at 1611, Until Mon06/24/19 at 1612, For 1 dose barium Sulfate (VARIBAR PUDDING) oral pudding 5 Given 06/24/2019 4:12 PM PLANTING MATERIAL CARRIER 5 mL mL 5 mL, Oral, ONCE (NON-SCHEDULED), Starting on 06/24/19 at 1611, Until Mon06/24/19 at 1612, For 1 dose documented in this encounter Care Teams Cargo Operations Agent Relationship Specialty Start Date End Date Lurdes Thomas MD PCP - General 06/18/14 12/11/19 documented as of this encounter
--- OUTSIDE RECORDS SUMMARY | 2022-01-20 12:46 | XMS_ITS | Encounter Summary ---
:1955 Author Organization [facility] Address [address], [place] [address] Care Team Providers Name Role Phone Lurdes Thomas MD Primary Care Provider Reason for Visit Reason Comments Refill Encounter Details Date Type Department Care Team Description 08/21/2019 Refill [facility] Neuroscience Maria Esther Reis MD Refill Center Neurology 3931 [facility] [address] [place] [address] [place] [address] [phone] Social History Tobacco Use Types Packs/Day Years [...] on filedocumented in this encounter Care Teams Surveillance System Monitor Relationship Specialty Start Date End Date Lurdes Thomas MD PCP - General 06/18/14 12/11/19 documented as of this encounter
--- OUTSIDE RECORDS SUMMARY | 2022-01-20 12:46 | XMS_ITS | Encounter Summary ---
:1955 Author [facility] Address [address] [address] Care Team Providers Name Role Phone Lurdes Thomas MD Primary Care Provider Reason for Visit Reason Comments Video Visit Consult/Transfer Care (Routine) - Closed Specialty Diagnoses / Procedures Referred By Contact Refer red To Contact Diagnoses Parkinson's disease (HRC) Maria Esther Phan MD 3931 [place], [place] [address] Referral ID Status Reason Start Date Expiration Date Visits Requ ested Visits Authorized [id number] Closed 09/12/2019 12/11/2020 1 1 Encounter Details Date Type Department Care Team Description 09/18/2019 Telemedicine Specialty Center 3931 Divina Kaiser MD Parkinson's disease Neurosurgery 3931 [facility] (Primary Dx) [address] [facility] [address] 005[address] [phone] Social History Tobacco Use Types Packs/Day Years [...] screening: no ?? Confirmed that patient has Aldagen downloaded and ready: Yes ?? Patient is [...] Primary documented in this encounter Care Teams Sales Project Manager Relationship Specialty Start Date End Date Lurdes Thomas MD PCP - General 06/18/14 12/11/19 documented as of this encounter
--- OUTSIDE RECORDS SUMMARY | 2022-01-20 12:46 | XMS_ITS | Encounter Summary ---
:1955 Author Organization [employer] Address [address] [place] [address] Care Team Providers Name Role Phone Lurdes Thomas MD Primary Care Provider Reason for Visit Reason Comments QUESTIONS, GENERAL MRI with DBS Encounter Details Date Type Department Care Team Description 10/18/2018 Telephone [facility] Shawnee Hilario, RN QUESTIONS, GENERAL (MRI [address] arriaga with DBS) [place], [place] [address] [facility] [phone] Social History Tobacco Use Types Packs/Day Years Used Date Smoking Tobacco: Never Smokeless Tobacco: Never Alcohol Use Standard Drinks/Week Comments Yes 0 (1 standard drink = 0.6 oz pure alcoho l) Sex Assigned at Date Recorded Not on file documented as of this encounter Nursing Notes Shawnee Hilario, RN - 10/18/2018 4:25 PM CDT There was no return phone call to [facility] today about getting system checked. Will send FYI to and then close encounter. Shawnee Hilario RN - 10/18/2018 9:06 AM CDT Patient and significant other calling because patient needs an MRI of his lumbar spine and was supposed to have this morning at [facility]. They wanted to fax us a form to complete verifying his DBS system is MRI eligible. We have not seen patient here for well over a year, he see's Dr. Phan over at the [facility] in [place]. I offered 3 options to them. They could come here and have the check. They could ask their doctor to order MRI over at [facility] and someone there can check it or they could contact [employer] and see if anyone could go out to [place] to check. She will call us back and let us know what they decide. documented in this encounter Plan of Treatment Not on filedocumented as of this encounter Visit Diagnoses Not on filedocumented in this encounter Care Teams Manager Plan Relationship Specialty Start Date End Date Lurdes Thomas MD PCP - General 06/18/14 12/11/19 documented as of this encounter
--- OUTSIDE RECORDS SUMMARY | 2022-01-20 12:46 | XMS_ITS | Encounter Summary ---
:1955 Author Organization [facility] Address [address], [place] [address] Care Team Providers Name Role Phone Lurdes Thomas MD Primary Care Provider Reason for Referral Procedure/Equipment (Routine) - Incomplete Specialty Diagnoses / Procedures Referred By Contact Refer red To Contact Diagnoses Dysphagia, oropharyngeal phase Maria Esther Phan MD Procedures FL Video Swallow Study [address] [place], [place] [address] Referral ID Status Reason Start Date Expiration Date Visits V isits Requested Authorized [id number] Incomplete 06/24/2019 09/22/2020 1 1 N BUILDER Reason for Visit Reason Comments Parkinson's Disease Therapies (Routine) - Closed Specialty Diagnoses / Procedures Referred By Contact Refer red To Contact Diagnoses Dysphagia, unspecified type Parkinson's disease (HRC) Maria Esther Phan MD [address] [place], [place] [address] Referral ID Status Reason Start Date Expiration Date Visits Requ ested Visits Authorized [id number] Closed 06/17/2019 08/16/2019 1 1 Encounter Details Date Type Department Care Team Description 06/24/2019 Office Visit Mesfin Fong, Dysphagia, Neuroscience Center FRUIT DUMPER oropharyngeal phase Speech Therapy [address] (Primary Dx) [address] [place], [place] [id number] [place] [address] [phone] Social History Tobacco Use Types Packs/Day Years Used Date Smoking Tobacco: Never Smokeless Tobacco: Never Alcohol Use Standard Drinks/Week Comments Yes 0 (1 standard drink = 0.6 oz pure alcoho l) Sex Assigned at Date Recorded Not on file documented as of this encounter Progress Notes Mesfin Morgan SLP - 06/24/2019 3:00 PM CST Pt seen, referred for MBSS N BUILDER documented in this encounter Plan of Treatment Not on filedocumented as of this encounter Results FL Video Swallow Study (06/24/2019 4:10 PM CHAIN BUILDER) Anatomical Region Laterality Modality Neck, Chest Radio Fluoroscopy Specimen (Source) Anatomical Collection Method Collection Time Re ceived Time Location / / Volume Laterality 06/24/2019 4:10 PM CHAIN BUILDER Narrative 06/24/2019 5:11 PM CHAIN BUILDER EXAM: FL VIDEO SWALLOW STUDY LOCATION: [facility] DATE/TIME: 06/24/2019 4:10 PM INDICATION: [...] original. EXAM: FL VIDEO SWALLOW STUDY LOCATION: [facility] DATE/TIME: 06/24/2019 4:10 PM INDICATION: [...] as described above. Maria Esther Phan MD [facility] documented in this encounter Visit Diagnoses Diagnosis Dysphagia, oropharyngeal phase - Primary Dysphagia, oropharyngeal phase documented in this encounter Care Teams Film Sorter Relationship Specialty Start Date End Date Lurdes Thomas MD PCP - General 06/18/14 12/11/19 documented as of this encounter
--- OUTSIDE RECORDS SUMMARY | 2022-01-20 12:46 | XMS_ITS | Encounter Summary ---
:1955 [facility] Address [address] [place] [address] Care Team Providers Name Role Phone Samantha Stauffer MD Primary Care Provider Encounter Details Date Type Department Care Team Description 11/20/2019 Prep for Surgery Specialty Center 3931 Clementine Kaiser MD Neurosurgery [address] [address] [phone] Social History Tobacco Use Types Packs/Day Years [...] on filedocumented in this encounter Care Teams Lead Java J2Ee Developer Relationship Specialty Start Date End Date Samantha Stauffer MD PCP - General Family Practice 12/12/191999 [place] [address] documented as of this encounter
--- OUTSIDE RECORDS SUMMARY | 2022-01-20 12:46 | XMS_ITS | Encounter Summary ---
:1955 Author Organization [facility] Address [address] [place] [address] Care Team Providers Name Role Phone Samantha Stauffer MD Primary Care Provider [phone] Reason for Visit Auth/Cert Specialty Diagnoses / Procedures Referred By Contact Refer red To Contact Diagnoses Parkinson's disease (HRC) Procedures RIGHT DEEP BRAIN STIMULATOR GENERATOR REPLACEMENT Referral ID Status Reason Start Date Expiration Date Visits Requ ested Visits Authorized [id number] 1 1 Encounter Details Date Type Department Care Team Description 12/12/2019 Hospital Encounter [facility] Clementine Kaiser MD Parkinson's disease Room 3931 [facility] [address] [place] [address] [place] [address] [phone] Social History Tobacco Use Types Packs/Day Years [...] upper arm muscles. This includes pushing a hair rooting machine operator or vacuum and mopping floors. [...] can you learn more? 1. Go to [email or web address]/Modbookrary or Kaleidoscope/China Precision TechnologyraHASH. 2. Enter D150 in the search box. Current as of: April 09, 2019?Content Version: 12.4 ?? Ipselex. Care instructions adapted under license by your healthcare professional. If you have questions abouta medical condition or this instruction, always ask your healthcare professional. Ipselex disclaims any warranty or liability for your [...] on Keflex including possible side effects. Prescriptions [facility] in [place]. Belongings checklist reviewed with patient and belongings [...] Kaiser MD - 12/12/2019 8:17 AM CDT [facility] Operative Note Surgery Date: 12/12/2019 Primary [...] 8-10 minutes) Implants: Activa PC Model number [id number] Serial No: [id number] Post-op Diagnosis: Parkinson's Disease, Right Infraclavicular IPG [...] - Rapid (COVID-19) (12/12/2019 6:06 AM CDT) [facility] Method Time Signature COVID-19 Not Not 12/12/2019 [facility] Interpretation Detected Detected 7:04 AM CDT LABORATORY Specimen Anatomical Collection Method Collection Time Receive d Time (Source) Location / / Volume Laterality Swab (Source Non-blood 12/12/2019 6:06 AM 0 6:09 Required) Collection / CDT AM CDT Unknown Narrative [facility] - 12/12/2019 7:04 A M CDT Test performed by real-time PCR. This test has been authorized by the FDA under an Emergency Use Authorization (EUA) for use by authorized laboratories. Jorge L Kaiser MD LAB_1 Performing Organization Address City/State/ZIP Code Phon e Number [facility] [address] [place] [address] documented in this encounter Visit Diagnoses Diagnosis Parkinson's disease (HRC) - Primary documented in this encounter Admitting Diagnoses Diagnosis Parkinson's disease (HRC) documented in this encounter Administered Medications Inactive Administered Medications - up to 3 most recent administrations Medication Order MAR Action Action Date Dose Rate Site bupivacaine-epinephrine PF Given 12/12/2019 7:58 AM CDT 20 mL (SENSORCAINE) 0.25% -1:[id number] injection ONCE PRN, Starting on Stacey 12/12/19 [...] (COMPLETED) 0735 (Given - Provider: Luis Anaya, INDUSTRIAL ILLUMINATING ENGINEER, LEAN SENSEI) 2 g, Intravenous, Administer over 30 Min [...] (Anesthesia Fluid - Provider: Luis Anaya APRN, LEAN SENSEI) 25 mL/hr, Intravenous, at 25 mL/hr, CONT [...] Lozenge, Oral, Q2H PRN, Throat Pain, Starting [facility] 12/12/19 at 0 957 bisacodyl (DULCOLAX) rectal suppository 10 mg 10 mg, Rectal, DAILY PRN, Other, Moderat e Constipation, Starting [facility] 12/12/19 at 0830, If unable to take oral senna (SENOKOT) or senna (SENOKOT) is ineffective., Post-op bupivacaine-epinephrine PF (SENSORCAINE) 0.25% -1:750953 injecti on 0758 (Given - Provider: Jorge [...] Modera te Pain (pain score 5-7), Starting [facility] 12/12/19 at 0830, Post-op HYDROmorphone (DILAUDID) injection 0.3-0.5 mg 0.3-0.5 mg, Intravenous, Q2H PRN, Other, Severe Pain (pain score 8-10) if unable to take oral medications or for pain score increasing by 3 in 30 minutes, Starting [facility] 12/12/19 at 1216, May administer 1 hour after ORAL opioid administration if given for pain score escalation. Do NOT administer at the same time as ORAL opioids. HOLD if on VOIP TECHNICIAN., Post-op lidocaine (UROJET) 2 % prefilled syringe [...] time as IV opioids. HOLD if on VOIP TECHNICIAN., Post-op senna (SENOKOT) tablet 1-2 Tablet 1-2 Tablet, Oral, BID PRN, Other, Modera te Constipation, Starting [facility] 12/12/19 at 0830, Hold for loose stools, Post-op documented in this encounter Care Teams Analytical Lead Relationship Specialty Start Date End Date Samantha Stauffer MD PCP - General Family Practice 12/12/191999 [place] [address] documented as of this encounter
--- OUTSIDE RECORDS SUMMARY | 2022-01-20 12:46 | XMS_ITS | Encounter Summary ---
:1955 Author Organization [facility] Address [address] [place] [address] Care Team Providers Name Role Phone Lurdes Thomas MD Primary Care Provider Reason for Visit Reason Onset Date Comments Refill 06/03/2019 Encounter Details Date Type Department Care Team Description 06/03/2019 Refill [facility] Neuroscience Para Maria Esther newberry MD Refill Center Neurology [address] [address] [place] [address] [phone] Social History Tobacco Use Types Packs/Day Years Used Date Smoking Tobacco: Never Smokeless Tobacco: Never Alcohol Use Standard Drinks/Week Comments Yes 0 (1 standard drink = 0.6 oz pure alcoho l) Sex Assigned at Date Recorded Not on file documented as of this encounter Nursing Notes Maria Esther Phan MD - 06/03/2019 4:29 PM CST Citalopram was refilled [facility]. Abi aBzzi 06/03/2019 1:57 PM CST Refill request: Medication: Citalopram (CELEXA) 10 MG Sig: take 1 tab by mouth daily Qty: 90 tabs Last Refill: not given Mining Technician/Appt Center: Was the pharmacy entered into the Preferred Pharmacy field? Yes Abi Laughlin 06/03/2019, 1:58 PM [facility]ALL [facility]OUT documented in this encounter Plan of Treatment Not on filedocumented as of this encounter Visit Diagnoses Not on filedocumented in this encounter Care Teams Wood Room Supervisor Relationship Specialty Start Date End Date Lurdes Thomas MD PCP - General 06/18/14 12/11/19 documented as of this encounter
--- OUTSIDE RECORDS SUMMARY | 2022-01-20 12:46 | XMS_ITS | Encounter Summary ---
:1955 Author Organization [facility] Address [address] [place] [address] Care Team Providers Name Role Phone Lurdes Thomas MD Primary Care Provider Reason for Visit Reason Comments QUESTIONS, GENERAL Encounter Details Date Type Department Care Team Description 09/17/2019 Telephone [email or web address] Maria Esther Phan, GENERAL Neuroscience Center MD Prem Neurology 3931 [facility] [address] [place] [phone] (Wo rk) Social History Tobacco Use Types [...] the top of his limit. Gave him [place] DBS nurse line to call if he had programing questions. FYI. Maria Esther Phan MD - 09/23/2019 12:30 PM CDT OK, I will ask nursing for DBS programming with [facility] [place], to see if we can put off [...] Phan may have patient to go to [place] to have an adjustment. They would be interested in this if it is a possibility. Dr. Phan, please review and advise. Matt Cates RN 09/23/2019, 12:18 PM Sylvia Burgess - 09/23/2019 10:10 AM CDT Spouse called in, wanting to speak with Blaise about his battery and could be that it needs adjusting.Please call [phone] Sylvia Burgess 09/23/2019, 10:11 AM Matt Cates [...] on filedocumented in this encounter Care Teams Custom Protection Officer Relationship Specialty Start Date End Date Lurdes Thomas MD PCP - General 06/18/14 12/11/19 documented as of this encounter
--- OUTSIDE RECORDS SUMMARY | 2022-01-20 12:46 | XMS_ITS | Encounter Summary ---
:1955 Author Organization [facility] Address [address] [place] [address] Care Team Providers Name Role Phone Lurdes Thomas MD Primary Care Provider Reason for Visit Reason Comments Concerns Battery getting low Encounter Details Date Type Department Care Team Description 08/28/2019 Telephone [facility] Walker Concern s (Battery Neuroscience Center MD Prem getting low) Neurology 3931 [facility] [address] [place] [address] [place], [place] [phone] (Wo rk) Social History Tobacco Use Types [...] 09/13/2019. Please help them set up the [employer] madhav. Matt Cates RN 08/28/2019, 3:04 PM [...] on filedocumented in this encounter Care Teams Coater Carbon Paper Relationship Specialty Start Date End Date Lurdes Thomas MD PCP - General 06/18/14 12/11/19 documented as of this encounter
--- OUTSIDE RECORDS SUMMARY | 2022-01-20 12:46 | XMS_ITS | Encounter Summary ---
:1955 Author Organization [facility] Address [address], [place] [address] Care Team Providers Name Role Phone Lurdes Thomas MD Primary Care Provider Reason for Visit Reason Comments Prior Authorization Request update needed - [facility] Encounter Details Date Type Department Care Team Description 10/10/2019 Telephone 280 [facility] Esther [facility] Neuroscience Center MD Prem Request (update needed Neurology 3931 [facility] - [facility]) 295 [facility] [place] [address] [place], [place] [phone] Social History Tobacco Use Types Packs/Day Years [...] AM CDT [facility] for [facility] for [facility]. Pt needs this medication by Monday. Please call pt back and advise. THanks Jeannette Dee 10/10/2019, 10:53 AM documented in this encounter Plan of Treatment Not on filedocumented as of this encounter Visit Diagnoses Not on filedocumented in this encounter Care Teams Herb Doctor Relationship Specialty Start Date End Date Lurdes Thomas MD PCP - General 06/18/14 12/11/19 documented as of this encounter
--- OUTSIDE RECORDS SUMMARY | 2022-01-20 12:46 | XMS_ITS | Encounter Summary ---
:1955 Author Organization [email or web address] Address [address] [place] [address] [place] [address] Care Team Providers Name Role Phone Samantha Stauffer MD Primary Care Provider [phone] Reason for Visit Auth/Cert Specialty Diagnoses / Procedures Referred By Contact Refer red To Contact Diagnoses Parkinson's disease (HRC) Procedures RIGHT DEEP BRAIN STIMULATOR GENERATOR REPLACEMENT Referral ID Status Reason Start Date Expiration Date Visits Requ ested Visits Authorized [id number] 1 1 Encounter Details Date Type Department Care Team Description 12/12/2019 Surgery [facility] Operating Jorge L Kaiser MD RIGHT DEEP BRAIN Room 3931 [facility] STIMULATOR GENERATOR [address] [place] [address] [phone] Social History Tobacco Use Types Packs/Day Years [...] upper arm muscles. This includes pushing a special effects person or vacuum and mopping floors. It also [...] can you learn more? 1. Go to https://Wyutex Oil and Gas/Mercury Intermediarary or Cloudyn/Hobo LabsraBest Money Decisions. 2. Enter D150 in the search box. Current as of: April 09, 2019?Content Version: 12.4 ?? Flowgram. Care instructions adapted under license by your healthcare professional. If you have questions abouta medical condition or this instruction, always ask your healthcare professional. Flowgram disclaims any warranty or liability for your [...] on Keflex including possible side effects. Prescriptions [facility] in [place]. Belongings checklist reviewed with patient and belongings [...] Kaiser MD - 12/12/2019 8:17 AM CDT [facility] Operative Note Surgery Date: 12/12/2019 Primary Surgeon: [...] 8-10 minutes) Implants: Activa PC Model number [id number] Serial No: [id number] Post-op Diagnosis: Parkinson's Disease, Right Infraclavicular IPG [...] - Rapid (COVID-19) (12/12/2019 6:06 AM CDT) [facility] Method Time Signature COVID-19 Not Not 12/12/2019 [facility] Interpretation Detected Detected 7:04 AM CDT LABORATORY Specimen Anatomical Collection Method Collection Time Receive d Time (Source) Location / / Volume Laterality Swab (Source Non-blood 12/12/2019 6:06 AM 0 6:09 Required) Collection / CDT AM CDT Unknown Narrative [facility] - 12/12/2019 7:04 A M CDT Test performed by real-time PCR. This test has been authorized by the FDA under an Emergency Use Authorization (EUA) for use by authorized laboratories. Jorge L Kaiser MD LAB_1 Performing Organization Address City/State/ZIP Code Phon e Number [facility] [address] [place] [address] documented in this encounter Visit Diagnoses Diagnosis Parkinson's disease (HRC) - Primary Parkinson's disease (HRC) documented in this encounter Admitting Diagnoses Diagnosis Parkinson's disease (HRC) documented in this encounter Administered Medications Inactive Administered Medications - up to 3 most recent administrations Medication Order MAR Action Action Date Dose Rate Site bupivacaine-epinephrine PF Given 12/12/2019 7:58 AM CDT 20 mL (SENSORCAINE) 0.25% -1:110702 injection ONCE PRN, Starting on Stacey 12/12/19 [...] (COMPLETED) 0735 (Given - Provider: Luis Anaya, CHIEF LIFESTYLE OFFICER, BARN BOSS) 2 g, Intravenous, Administer over 30 Min [...] (Anesthesia Fluid - Provider: Luis Anaya APRN, BARN BOSS) 25 mL/hr, Intravenous, at 25 mL/hr, CONT INUOUS, Starting Stacey 12/12/19 at 0615, Administer on all preop surgery patients, ages 12 and older, unless specified differently in the Protocol for Preop Initiation of IV fluids Order Set., Pre-op NaCl 0.9%-KCl 20 mEq/liter infusion 0900 (Due) Intravenous, at 75 mL/hr, CONTINUOUS, Starting [facility] 12/12/19 at 09 00, Post-op PRN Medication Order 12/10/2019 12/11/2019 12/12/2019 acetaminophen (TYLENOL) tablet 650 mg 650 mg, Oral, Q4H PRN, Other, Mild Pain (pain score 1-4), Starting [facility] 12/12/19 at 0830, Every 4 hours [...] is ineffective., Post-op bupivacaine-epinephrine PF (SENSORCAINE) 0.25% -1:[id number] injecti on 0758 (Given - Provider: Jorge L Kaiser MD) ONCE PRN, Starting [facility] 12/12/19 at 0758, Intra-op gentamicin 80 mg-clindamycin 900 mg in s odium chloride 1000 mL (DABS) irrigation solution 0802 (Given - Provid er: Jorge L aKiser MD) ONCE PRN, Starting [facility] 12/12/19 at 0802, Intra-op HYDROcodone-acetaminophen (NORCO) [...] time as ORAL opioids. HOLD if on UNCLAIMED PROPERTY OFFICER., Post-op lidocaine (UROJET) 2 % prefilled syringe [...] time as IV opioids. HOLD if on UNCLAIMED PROPERTY OFFICER., Post-op senna (SENOKOT) tablet 1-2 Tablet 1-2 Tablet, Oral, BID PRN, Other, Modera te Constipation, Starting [facility] 12/12/19 at 0830, Hold for loose stools, Post-op documented in this encounter Care Teams Historic Sites Supervisor Relationship Specialty Start Date End Date Samantha Stauffer MD PCP - General Family Practice 12/12/191999 [place] [address] documented as of this encounter
--- OUTSIDE RECORDS SUMMARY | 2022-01-20 12:46 | XMS_ITS | Encounter Summary ---
:1955 Author Organization [facility] Address [address], [place] [address] Care Team Providers Name Role Phone Lurdes Thomas MD Primary Care Provider Reason for Visit Reason Onset Date Comments Refill 08/01/2019 Encounter Details Date Type Department Care Team Description 08/01/2019 Refill [facility] Neuroscience Maria Esther Reis MD Refill Center Neurology [address] [facility] 295 [place] [address] [place] [address] [phone] Social History Tobacco Use Types Packs/Day Years [...] at bedtime Qty: 60 Last Refill: 07/08/2019 Automotive Vehicle Inspector/Appt Center: Was the pharmacy entered into the Preferred Pharmacy field? Yes Abi Laughlin 08/01/2019, 10:31 AM documented in this encounter Plan of Treatment Not on filedocumented as of this encounter Visit Diagnoses Not on filedocumented in this encounter Care Teams Kitchen Clerk Relationship Specialty Start Date End Date Lurdes Thomas MD PCP - General 06/18/14 12/11/19 documented as of this encounter
--- OUTSIDE RECORDS SUMMARY | 2022-01-20 12:46 | XMS_ITS | Encounter Summary ---
:1955 Author Organization [facility] Address [address], [place] [address] Care Team Providers Name Role Phone Lurdes Thomas MD Primary Care Provider Reason for Referral Consult/Transfer Care (Routine) - Closed Specialty Diagnoses / Procedures Referred By Contact Refer red To Contact Neurosurgery Diagnoses Parkinson's disease (HRC) Maria Esther Phan MD McIver, Jon I, MD [address] [facility] 640 [place], [place] [address] [place] [address] Fax: Referral ID Status Reason Start Date Expiration Date Visits Requ ested Visits Authorized [id number] Closed 11/13/2019 02/11/2021 1 1 Scheduling Instructions Your provider [facility]. You may call [phone], option [phone] to schedule your appointment. We suggest you call your health insurance breanna about your coverage and benefits for this appointment. Reason for Visit Reason Comments FYI DBS battery Encounter Details Date Type Department Care Team Description 11/13/2019 Telephone Maria Esther Mckeon (DB S battery) Neuroscience Center MD Prem Neurology [address] [facility] 295 [place] [address] [phone] (Wo rk) Social History Tobacco Use Types [...] him if he mixed systems (I.egot a Waggoner Sci battery, with Medtronic lead) this is [...] to call and schedule the battery replacement. [place] [facility], can you facilitate with Dr. Kaiser's [...] Primary documented in this encounter Care Teams Fire Extinguisher Repairer Inspector Relationship Specialty Start Date End Date Lurdes Thomas MD PCP - General 06/18/14 12/11/19 documented as of this encounter
--- OUTSIDE RECORDS SUMMARY | 2022-01-20 12:46 | XMS_ITS | Encounter Summary ---
:1955 Author Organization [facility] Address [address] [place] [address] Care Team Providers Name Role Phone Lurdes Thomas MD Primary Care Provider Reason for Visit Reason Comments Prior Authorization Request Encounter Details Date Type Department Care Team Description 09/11/2018 Telephone [place] Maria Esther Phan [facility] Neuroscience Center MD Prme Request Neurology 39[address] [facility] 295 [facility] [place] [address] [place], [place] [phone] Social History Tobacco Use Types Packs/Day Years [...] PA was approved from 08/14/18 to 09/13/19. PA#[id number] Called [employer] and told them PA was approved. They will expedite shipping and get to pt by Monday. Copy of PA approval sent to [facility]. Abi Laughlin - 09/13/2018 4:41 PM CDT Patient's spouse called regarding below message She can be contacted at [phone] - spouse's number or her own number [phone] Abi Laughlin 09/13/2018, 4:42 PM Maria Esther Phan MD - 09/13/2018 3:46 PM CDT Jeannette, I went to the website, will not allow me to start an account as I apparently already have on, I asked for a password reset, and received no e-mail to reset. I called this agency ([facility] -whomever they might be) and [...] 137 mg ER capsules 1. Go to [employer] and click Enter a Ann 2. Enter the pt's Last name, and the Ann Ann: [id number] Pt's Last name: Poly : 1955 3. Complete th form and click: Send to Plan for approval documented in this encounter Plan of Treatment Not on filedocumented as of this encounter Visit Diagnoses Not on filedocumented in this encounter Care Teams Coater Helper Relationship Specialty Start Date End Date Lurdes Thomas MD PCP - General 06/18/14 12/11/19 documented as of this encounter
--- OUTSIDE RECORDS SUMMARY | 2022-01-20 12:46 | XMS_ITS | Encounter Summary ---
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 [place] [address] [place], [place] [phone] Social History Tobacco Use Types Packs/Day Years [...] without abnormal responses. There are no tremors. Svffng-nski-huwzte and seps-ripc-nzee are accurate. There is minimal if any [...] unspecified documented in this encounter Care Teams Home Aide Relationship Specialty Start Date End Date Lurdes Thomas MD PCP - General 06/18/14 12/11/19 documented as of this encounter
--- OUTSIDE RECORDS SUMMARY | 2022-01-20 12:46 | XMS_ITS | Encounter Summary ---
:1955 Author Organization [facility] Address [address] [place] [address] Care Team Providers Name Role Phone Lurdes Thomas MD Primary Care Provider Reason for Referral Consult/Transfer Care (Routine) - Closed Specialty Diagnoses / Procedures Referred By Contact Refer red To Contact Diagnoses Parkinson's disease (HRC) Richard Phan MD [address] [place], [place] [address] Referral ID Status Reason Start Date Expiration Date Visits Requ ested Visits Authorized [id number] Closed 09/12/2019 12/11/2020 1 1 Scheduling Instructions Your provider has recommended an appoint ment with Jasmine Ramirez. You may call [phone] to schedule your appoi ntment. If you do not schedule an appointment within the next 1 to 3 business days, we will call you to help arrange your appointment. We suggest you call your [facility] insurance company about your coverage and benefits for this appointment. Reason for Visit Reason Comments QUESTIONS, GENERAL UPDATE Encounter Details Date Type Department Care Team Description 09/02/2019 [facility]phone [facility]; Neuroscience Center MD Prem UPDATE Neurology [address] [place] [address] [place], [place] [phone] (Wo rk) Social History Tobacco Use Types [...] Cates RN - 09/12/2019 11:36 AM CDT [facility] Matt Cates RN 09/12/2019, 11:37 AM [...] that we are restarting battery changes at [facility] with Dr. Kaiser, so if they wish [...] will be limited to drop off and supervisor picking crew on the day of surgery. A family [...] Primary documented in this encounter Care Teams Orthodontic Technician Relationship Specialty Start Date End Date Lurdes Thomas MD PCP - General 06/18/14 12/11/19 documented as of this encounter
--- OUTSIDE RECORDS SUMMARY | 2022-01-20 12:46 | XMS_ITS | Encounter Summary ---
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 [address] [place], [place] [phone] Social History Tobacco Use Types Packs/Day Years [...] any sensory deficits. There are no tremors. Jnllqf-wzyq-rhqcug is accurate. There is mild bradykinesia. He [...] coordination documented in this encounter Care Teams Continuous Wave Operator Relationship Specialty Start Date End Date Lurdes Thomas MD PCP - General 06/18/14 12/11/19 documented as of this encounter
--- OUTSIDE RECORDS SUMMARY | 2022-01-20 12:46 | XMS_ITS | Encounter Summary ---
:1955 Author Organization [facility] Address [address] [address] Care Team Providers Name Role Phone Samantha Stauffer MD Primary Care Provider Reason for Visit Reason Comments Labs Needed Encounter Details Date Type Department Care Team Description 11/27/2019 Telephone Specialty Center 393 1 Neurosurgery Aurora Ruiz, RN Labs Needed 39[address] [place], [place] [address] Social History Tobacco Use Types Packs/Day Years Used Date Smoking Tobacco: Never Smokeless Tobacco: Never Alcohol Use Standard Drinks/Week Comments Yes 0 (1 standard drink = 0.6 oz pure alcoho l) Sex Assigned at Date Recorded Not on file documented as of this encounter Nursing Notes Aurora Ruiz, RN - 11/27/2019 3:36 PM CDT Covid test ordered. MRSA test ordered and faxed to [facility]. Emailed surgical teaching information. documented in this encounter Plan of Treatment Not on filedocumented as of this encounter Visit Diagnoses Diagnosis Preop testing - Primary Preoperative examination, unspecified documented in this encounter Care Teams Cotton Picking Machine Operator Relationship Specialty Start Date End Date Samantha Stauffer MD PCP - General Family Practice 12/12/191999 [place] [address] documented as of this encounter
--- OUTSIDE RECORDS SUMMARY | 2022-01-20 12:46 | XMS_ITS | Encounter Summary ---
:1955 Author Organization [facility] Address [address] [address] Care Team Providers Name Role Phone Samantha Stauffer MD Primary Care Provider [phone] Reason for Visit Auth/Cert Specialty Diagnoses / Procedures Referred By Contact Refer red To Contact Diagnoses Parkinson's disease (HRC) Procedures RIGHT DEEP BRAIN STIMULATOR GENERATOR REPLACEMENT Referral ID Status Reason Start Date Expiration Date Visits Requ ested Visits Authorized [id number] 1 1 Encounter Details Date Type Department Care Team Description 12/12/2019 Anesthesia Event Yazidism Operating Migel Portillo MD [address] [place] [address] [facility] Nasim Armstrong MD [address] [place] [address] [place] [address] Anesthesia Record Procedure Summary Procedure [...] Portillo MD - 12/12/2019 11:16 AM CDT [facility] Anesthesia Post-op Note Patient: Andrew Chalberg Post-Op [...] Armstrong MD - 12/12/2019 7:16 AM CDT [facility] Anesthesia Pre-op Evaluation Procedure: Procedure(s): Right - [...] benefits and alternatives discussed with: Patient or Refinisher agree tothe anesthesia treatment plan and Patient. [...] mL/hr documented in this encounter Care Teams [employer] Consultant Relationship Specialty Start Date End Date Samantha Stauffer MD PCP - General Family Practice 12/12/191999 [place] [address] documented as of this encounter
--- OUTSIDE RECORDS SUMMARY | 2022-01-20 12:46 | XMS_ITS | Encounter Summary ---
:1955 Author Organization [facility] Address [address], [place] [address] Care Team Providers Name Role Phone Lurdes Thomas MD Primary Care Provider Reason for Referral (Routine) - Incomplete Specialty Diagnoses / Procedures Referred By Contact Refer red To Contact Diagnoses Parkinson's disease (HRC) Jorge L Kaiser MD Procedures Case Request OR - Neurosurgery: RIGHT DEEP BRAIN STIMULATOR GENERATOR REPLACEMENT [address] [place] [address] Referral ID Status Reason Start Date Expiration Date Visits V isits Requested Authorized [id number] Incomplete 09/18/2019 12/17/2020 1 1 Encounter Details Date Type Department Care Team Description 09/18/2019 Prep for Surgery Specialty Center Jorge L Kaiser MD Parkinson's disease 3931 Neurosurgery 3931 [facility] (Primary Dx) [address] [place] [address] [place] [address] [phone] Social History Tobacco Use Types Packs/Day Years [...] Primary documented in this encounter Care Teams Ip Attorney Relationship Specialty Start Date End Date Serum, Lurdes C, MD PCP - General 06/18/14 12/11/19 documented as of this encounter
--- OUTSIDE RECORDS SUMMARY | 2022-01-20 12:46 | XMS_ITS | Encounter Summary ---
:1955 Author Organization [facility] Address [address] [place] [address] Care Team Providers Name Role Phone Lurdes Thomas MD Primary Care Provider Reason for Visit Reason Comments Refill Encounter Details Date Type Department Care Team Description 06/03/2019 Refill [facility] Neuroscience Maria Esther Reis MD Refill Center Neurology 3931 [facility] [address] [place] [address] [place] [address] [phone] Social History Tobacco Use Types Packs/Day Years Used Date Smoking Tobacco: Never Smokeless Tobacco: Never Alcohol Use Standard Drinks/Week Comments Yes 0 (1 standard drink = 0.6 oz pure alcoho l) Sex Assigned at Date Recorded Not on file documented as of this encounter Nursing Notes Rachel Brown RN - 06/03/2019 1:11 PM CST Incorrect provider. Rachel Brown RN TE SENSING PROGRAM MANAGER documented in this encounter Plan of Treatment Not on filedocumented as of this encounter Visit Diagnoses Not on filedocumented in this encounter Care Teams Carpentry Specialist Relationship Specialty Start Date End Date Lurdes Thomas MD PCP - General 06/18/14 12/11/19 documented as of this encounter
--- OUTSIDE RECORDS SUMMARY | 2022-01-20 12:46 | XMS_ITS | Encounter Summary ---
:1955 Author Organization [facility] Address [address] [place] [address] Care Team Providers Name Role Phone Lurdes Thomas MD Primary Care Provider Encounter Details Date Type Department Care Team Description 04/12/2019 Telephone [facility] Neuroscience Princess Phan, Center Neurology [address] [place] [address] [place] [address] [phone] (Wo rk) Social History Tobacco Use Types [...] on 04/11/19 CA placed fax in Dr. hPan' folder as COURT Laughlin 04/12/2019, 2:20 PM NT TECHNOLOGIES SPECIALIST documented in this encounter Plan of Treatment Not on filedocumented as of this encounter Visit Diagnoses Not on filedocumented in this encounter Care Teams Soil Conservation Technician Relationship Specialty Start Date End Date Lurdes Thomas MD PCP - General 06/18/14 12/11/19 documented as of this encounter
--- OUTSIDE RECORDS SUMMARY | 2022-01-20 12:46 | XMS_ITS | Encounter Summary ---
:1955 Author Organization [facility] Address [address] [place] [address] Care Team Providers Name Role Phone Lurdes Thomas MD Primary Care Provider Reason for Referral Therapies (Routine) - Closed Specialty Diagnoses / Procedures Referred By Contact Refer red To Contact Diagnoses Dysphagia, unspecified type Parkinson's disease (HRC) Maria Esther Phan MD [address] [place], [place] [address] Referral ID Status Reason Start Date Expiration Date Visits Requ ested Visits Authorized [id number] Closed 06/17/2019 08/16/2019 1 1 Scheduling Instructions Your provider has recommended an appoint ment with a [facility]. Please stop at the clinic check out desk for as sistance with scheduling or if you prefer to call for your appointment you may call [facility] at [phone]. We suggest you call your [facility] insurance company about your coverage and benefits for this appointment. PAPER CARRIER Reason for Visit Reason Comments REPORTING, NEW SYMPTOMS Encounter Details Date Type Department Care Team Description 06/17/2019 [facility]phone [facility] MD Prem SYMPTOMS Neurology [address] [address] [place], [place] [phone] (Wo rk) Social History Tobacco Use Types [...] no call back needed at this time. PAPER CARRIER Matt Cates RN - 06/17/2019 10:13 AM CST Nurse called Natasha and relayed message from Dr. Phan to her. She stated understanding and had no further questions at this time. She was in agreement with plan. Matt Cates RN 06/17/2019, 10:15 AM PAPER CARRIER Maria Esther Phan MD - 06/17/2019 10:05 AM CST They should have his PCP check him and possily do a CXR if indicated. The we can have him see speechtherapy for swallow evaluation - order entered. PAPER CARRIER Maximo Julio - 06/17/2019 8:16 AM CST Patients Natasha, calling to request call back regarding symptoms she is concerned about. She states the patient has been coughing for the past week and she thought it was due to a cold however, now she thinks it is from aspiration from Parkinson's. Please call her back when available, Thank you. PAPER CARRIER documented in this encounter Plan of Treatment Scheduled Referrals Name Type Priority Associated Diagnoses Order S chedule Speech Therapy Referral Routine Dysphagia, unspe cified type Ordered: 06/17/2019 Parkinson's disease (HRC) documented as of this encounter Visit Diagnoses Diagnosis Dysphagia, unspecified type - Primary Parkinson's disease (HRC) documented in this encounter Care Teams Commercial Manager Relationship Specialty Start Date End Date Lurdes Thomas MD PCP - General 06/18/14 12/11/19 documented as of this encounter
--- OUTSIDE RECORDS SUMMARY | 2022-01-20 12:47 | XMS_ITS | Encounter Summary ---
:1955 Author Organization [facility] Address [address], [place] [address] Care Team Providers Name Role Phone Lurdes Thomas MD Primary Care Provider Reason for Visit Reason Comments Spine Lumbar Encounter Details Date Type Department Care Team Description 06/16/2015 Office Visit [facility] Cain, Right -sided low back Therapy Aurora Briggs, PT pain with right-sided [address] granados (Primary Dx) [place] [address] [place], [place] [phone] (Wo rk) Social History Tobacco Use Types Packs/Day Years Used Date Smoking Tobacco: Never Smokeless Tobacco: Never Alcohol Use Standard Drinks/Week Comments Yes 0 (1 standard drink = 0.6 oz pure alcoho l) Sex Assigned at Date Recorded Not on file documented as of this encounter Progress Notes Aurora Hickey, PT - 06/23/2015 2:03 PM CST Encounter date: 06/16/2015 Pt : 1955 J[facility] Physical Therapy Progress Note Visit Number: 8 Initial Certification Period: 05/19/2015 to 08/17/15 Referring Provider: Dr. Maria Esther Phan Visit Diagnosis/ICD: Diagnosis ICD-10-CM ICD-9-CM 1. Right-sided low back pain with right-sided sciatica M54.41 724.3 Precautions: none Onset/Referral Date: 05/19/2015 Orders: Evaluate and treat. [facility] Services: Programming RN, Social Work, [...] above OBJ info and- therapeutic ex (CPT 84235)20 min Discussed hip series of stretches to [...] stretch with this, no pain. ultrasound (CPT 99713) 11 min US to right LB for 10 min, 1.3 w/cm2, continuous manual therapy (CPT 73091) 12 min soft tissue mobilization, and use of framing mill operator helper tool to T and lumbar parsspinals [...] therapy beyondinitial 6 that are set up INTELLIGENCE OFFICER documented in this encounter Plan of Treatment Not on filedocumented as of this encounter Visit Diagnoses Diagnosis Right-sided low back pain with right-beck ed sciatica (HRC) - Primary documented in this encounter Care Teams Windows Migration Technician Relationship Specialty Start Date End Date Lurdes Thomas MD PCP - General 06/18/14 12/11/19 documented as of this encounter
--- OUTSIDE RECORDS SUMMARY | 2022-01-20 12:47 | XMS_ITS | Encounter Summary ---
:1955 Author Organization [facility] Address [address], [place] [address] Care Team Providers Name Role Phone Lurdes Thomas MD Primary Care Provider Reason for Visit Reason Comments Spine Lumbar Encounter Details Date Type Department Care Team Description 06/18/2015 Office Visit [facility] Chris Cain, Right -sided low back Therapy Aurora Briggs, PT pain with right-sided [address] [place] (Primary Dx) [place] [address] [place], [place] [phone] (Wo rk) Social History Tobacco Use Types [...] Onset/Referral Date: 05/19/2015 Orders: Evaluate and treat. [facility] Services: Programming RN, Social Work, [...] above OBJ info and- therapeutic ex (CPT 53321)20 min side glides left reviewed flexion in step standing, left, than right. He still gets a little glitch on right side single leg raise in hands/knees position, 5 sec hold - in 1/2 sitting, hip hiking right for QL. He reports feeling an excellent stretch with this, no pain. ultrasound (CPT 09620) 11 min US to right LB for 10 min, 1.3 w/cm2, continuous manual therapy (CPT 82012) 12 min soft tissue mobilization, and use of regulatory affairs consultant tool to T and lumbar paraspinals Timed [...] therapy beyondinitial 6 that are set up TH ANALYST documented in this encounter Plan of Treatment Not on filedocumented as of this encounter Visit Diagnoses Diagnosis Right-sided low back pain with right-beck ed sciatica (HRC) - Primary documented in this encounter Care Teams Hospitality Job Titles Relationship Specialty Start Date End Date Lurdes Thomas MD PCP - General 06/18/14 12/11/19 documented as of this encounter
--- OUTSIDE RECORDS SUMMARY | 2022-01-20 12:47 | XMS_ITS | Encounter Summary ---
:1955 Author Organization [facility] Address [address], [place] [address] Care Team Providers Name Role Phone Lurdes Thomas MD Primary Care Provider Reason for Visit Reason Comments Spine Lumbar Encounter Details Date Type Department Care Team Description 07/16/2015 Office Visit [place] [facility] Chris Cain, Right -sided low back Therapy Aurora Briggs, PT pain with right-sided [address] granados (Primary Dx) [place] [address] [place], [place] [phone] (Wo rk) Social History Tobacco Use Types Packs/Day Years Used Date Smoking Tobacco: Never Smokeless Tobacco: Never Alcohol Use Standard Drinks/Week Comments Yes 0 (1 standard drink = 0.6 oz pure alcoho l) Sex Assigned at Date Recorded Not on file documented as of this encounter Progress Notes Aurora Hickey, PT - 07/19/2015 1:13 PM CST Encounter date: 07/16/2015 Pt : 1955 [facility] Physical Therapy Progress Note/Discharge Summary Visit Number: 14 Initial Certification Period: 05/19/2015 to 08/17/15 Referring Provider: Dr. Maria Esther Phan Visit Diagnosis/ICD: Diagnosis ICD-10-CM ICD-9-CM 1. Right-sided low back pain with right-sided sciatica M54.41 724.3 Precautions: none Onset/Referral Date: 05/19/2015 Orders: Evaluate and treat. [facility] Services: Programming RN, Social Work, [...] above OBJ info and- therapeutic ex (CPT 74876)15 min reviewed /discussed HEP, home management, body mechanics with lifting, turning, pivoting ultrasound (CPT 44524) 12 min US to right LB for 10 min, 1.3 w/cm2, continuous manual therapy (CPT 63298) 18 min joint mobilization to lumbar spine [...] 75- 85% improvement Plan: will DC to [facility] at this time, encouraged Andrew to call if any questions, or return if needed Encounter Date: 07/16/2015 Pt : 1955 [facility] Physical Therapy Discharge Summary Patient was seen [...] to return to therapy if symptoms recur. 'S GOLF COACH documented in this encounter Plan of Treatment Not on filedocumented as of this encounter Visit Diagnoses Diagnosis Right-sided low back pain with right-beck ed sciatica (HRC) - Primary documented in this encounter Care Teams Parts Facilitator Relationship Specialty Start Date End Date Lurdes Thomas MD PCP - General 06/18/14 12/11/19 documented as of this encounter
--- OUTSIDE RECORDS SUMMARY | 2022-01-20 12:47 | XMS_ITS | Encounter Summary ---
:1955 Author Organization [facility] Address [address] [address] Care Team Providers Name Role Phone Lurdes Thomas MD Primary Care Provider Reason for Visit Reason Comments QUESTIONS, GENERAL Encounter Details Date Type Department Care Team Description 05/04/2018 Telephone [facility] Esther Walker, GENERAL [facility] MD Prem Neurology [address] [facility] [address] [place] [address] [phone] (Wo rk) Social History Tobacco Use Types [...] advise . Jeannette Michael 05/04/2018, 10:51 AM MACHINE OPERATOR documented in this encounter Plan of Treatment Not on filedocumented as of this encounter Visit Diagnoses Not on filedocumented in this encounter Care Teams Jig Grinder Set Up Operator Relationship Specialty Start Date End Date Lurdes Thomas MD PCP - General 06/18/14 12/11/19 documented as of this encounter
--- OUTSIDE RECORDS SUMMARY | 2022-01-20 12:47 | XMS_ITS | Encounter Summary ---
:1955 Author Organization [facility] Address [address], [place] [address] Care Team Providers Name Role Phone Lurdes Thomas MD Primary Care Provider Reason for Visit Reason Comments Spine Lumbar Encounter Details Date Type Department Care Team Description 06/23/2015 Office Visit [place] [facility] Chris Cain, Right -sided low back Therapy Aurora Briggs, PT pain with right-sided [address] granados (Primary Dx) [place] [address] [place], [place] [phone] (Wo rk) Social History Tobacco Use Types Packs/Day Years Used Date Smoking Tobacco: Never Smokeless Tobacco: Never Alcohol Use Standard Drinks/Week Comments Yes 0 (1 standard drink = 0.6 oz pure alcoho l) Sex Assigned at Date Recorded Not on file documented as of this encounter Progress Notes Aurora Hickey, PT - 06/23/2015 2:00 PM CST Encounter date: 06/23/2015 Pt : 1955 [facility] Physical Therapy Progress Note Visit Number: 10 Initial Certification Period: 05/19/2015 to 08/17/15 Referring Provider: Dr. Maria Esther Phan Visit Diagnosis/ICD: Diagnosis ICD-10-CM ICD-9-CM 1. Right-sided low back pain with right-sided sciatica M54.41 724.3 Precautions: none Onset/Referral Date: 05/19/2015 Orders: Evaluate and treat. [facility] Services: Programming RN, Social Work, [...] above OBJ info and- therapeutic ex (CPT 45405)10 min reviewed flexion in step standing, left, than right. He still gets a little glitch on right side - in 1/2 sitting, hip hiking right for QL. He reports feeling an excellent stretch with this, no pain. 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
--- OUTSIDE RECORDS SUMMARY | 2022-01-20 12:47 | XMS_ITS | Encounter Summary ---
:1955 Author Organization [facility] Address [address] [place] [address] Care Team Providers Name Role Phone Lurdes Thomas MD Primary Care Provider Reason for Visit Reason Comments Medication Questions Encounter Details Date Type Department Care Team Description 06/07/2018 Telephone HealthPartMaria Esther Walker Medicat ion Questions [facility] MD Prem Neurology [address] [facility] [address] [place] [address] [place], [place] [phone] (Wo rk) Social History Tobacco Use Types [...] of Dr. Phan' recommendations. Jeannette Porras RN LE HEARING OFFICER Maria Esther Phan MD - 06/08/2018 11:45 AM CST No problem with lansoprazole. LE HEARING OFFICER Yenny Ray - 06/07/2018 4:40 PM CST Pt natasha calling stating that pt was given a new medication by his PCP for acid reflex but they would like to know if Dr. Phan is ok with pt taking this medication. Pt was started on lansoprazole to treat the acid reflex. Please Advise LE HEARING OFFICER documented in this encounter Plan of Treatment Not on filedocumented as of this encounter Visit Diagnoses Not on filedocumented in this encounter Care Teams Inhalation Therapy Aide Relationship Specialty Start Date End Date Lurdes Thomas MD PCP - General 06/18/14 12/11/19 documented as of this encounter
--- OUTSIDE RECORDS SUMMARY | 2022-01-20 12:47 | XMS_ITS | Encounter Summary ---
:1955 Author Organization [employer] Address [address], [place] [address] Care Team Providers Name Role Phone Lurdes Thomas MD Primary Care Provider Reason for Visit Reason Comments Social Service Encounter Details Date Type Department Care Team Description 05/19/2015 Office Visit [facility] [place], Parkinson' s disease Services PAN PULLER (Primary Dx) [address] [email or web address] [address] Social History Tobacco Use Types [...] stress and workplace environment. 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 He is trying to do parts of [...] information provided for future concerns or questions. BREWER documented in this encounter Plan of Treatment Not on filedocumented as of this encounter Visit Diagnoses Diagnosis Parkinson's disease (HRC) - Primary documented in this encounter Care Teams Commercial Lines Account Assistant Relationship Specialty Start Date End Date Lurdes Thomas MD PCP - General 06/18/14 12/11/19 documented as of this encounter
--- OUTSIDE RECORDS SUMMARY | 2022-01-20 12:47 | XMS_ITS | Encounter Summary ---
:1955 Author Organization [facility] Address [address] [place] [address] Care Team Providers Name Role Phone Lurdes Thomas MD Primary Care Provider Reason for Visit Reason Comments Device Check Consult/Transfer Care (Routine) - Closed Specialty Diagnoses / Procedures Referred By Contact Refer red To Contact Diagnoses Parkinson's disease ([facility]) Maria Esther Phan MD [address] [place], [place] [address] Referral ID Status Reason Start Date Expiration Date Visits Requ ested Visits Authorized [id number] Closed 08/08/2017 11/07/2018 1 1 Encounter Details Date Type Department Care Team Description 08/08/2017 Nursing Visit [facility] Hilario, Parkinson's disease ([facility]) (P rimary Dx); [address] RN 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
--- OUTSIDE RECORDS SUMMARY | 2022-01-20 12:47 | XMS_ITS | Encounter Summary ---
:1955 Author Organization [facility] Address [address] [address] Care Team Providers Name Role Phone Lurdes Thomas MD Primary Care Provider Reason for Visit Reason Comments Spine Lumbar Encounter Details Date Type Department Care Team Description 05/26/2015 Office Visit [place] [facility] Chris Cain, Right -sided low back Therapy Aurora Briggs, PT pain with right-sided [address] granados (Primary Dx) [place] [address] [place], [place] [phone] (Wo rk) Social History Tobacco Use Types Packs/Day Years Used Date Smoking Tobacco: Never Smokeless Tobacco: Never Alcohol Use Standard Drinks/Week Comments Yes 0 (1 standard drink = 0.6 oz pure alcoho l) Sex Assigned at Date Recorded Not on file documented as of this encounter Progress Notes Aurora Hickey, PT - 05/26/2015 10:30 AM CST Encounter date: 05/26/2015 Pt : 1955 [facility] Physical Therapy Progress Note Visit Number: 2 Initial Certification Period: 05/19/2015 to 08/17/15 Referring Provider: Dr. Maria Esther Phan Visit Diagnosis/ICD: Diagnosis ICD-10-CM ICD-9-CM 1. Right-sided low back pain with right-sided sciatica M54.41 724.3 Precautions: none Onset/Referral Date: 05/19/2015 Reason for Referral: -Outpatient PT. Orders: Evaluate and treat. [facility] Services: Programming RN, Social Work, therapy in the past Exacerbation Date: 04/21/2015 Last Referring MD Visit: 05/19/2015 SUBJECTIVE: Andrew is new to me today, initially assessed at [facility], and referred to [facility] location for convenience, and orthopedic care [...] with REIL Treatment/Education Today: therapeutic ex (CPT 59493)15 min time spent with orthopedic assessment manual therapy (CPT 54909) 15 min in prone, general mobilization. afterwards, (-) prone knee flexion test, but pain with transitional movements In supine, end range rotational thrust to the right, repeated twice, and to the left, with cavitation. Afterwards, no pain with supine to sit, and sit to stand. still is shifted, but no pain therapeutic ex (CPT 87104) 15 min Added for HEP: supine DKTC, [...] can see what will work for him CTOR SERVICE documented in this encounter Plan of Treatment Not on filedocumented as of this encounter Visit Diagnoses Diagnosis Right-sided low back pain with right-beck ed sciatica (HRC) - Primary documented in this encounter Care Teams Net Front End Developer Relationship Specialty Start Date End Date Lurdes Thomas MD PCP - General 06/18/14 12/11/19 documented as of this encounter
--- OUTSIDE RECORDS SUMMARY | 2022-01-20 12:47 | XMS_ITS | Encounter Summary ---
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 [address] [place], [place] [phone] Social History Tobacco Use Types Packs/Day Years Used Date Smoking Tobacco: Never Smokeless Tobacco: Never Alcohol Use Standard Drinks/Week Comments Yes 0 (1 standard drink = 0.6 oz pure alcoho l) Sex Assigned at Date Recorded Not on file documented as of this encounter Last Filed Vital Signs Vital Sign Reading Time Taken Comments Blood Pressure 118/73 05/04/2018 3:45 PM MEDIA SUPERVISOR Pulse 85 05/04/2018 3:45 PM MEDIA SUPERVISOR Temperature - - Respiratory Rate - - Oxygen Saturation - - Inhaled Oxygen Concentration - - Weight 80.1 kg (176 lb 9.6 oz) 05/04/2018 3:45 PM MEDIA SUPERVISOR Height 185.4 cm (6' 1) 05/04/2018 3:45 PM MEDIA SUPERVISOR Body Mass Index 23.3 05/04/2018 3:45 PM MEDIA SUPERVISOR documented in this encounter Patient Instructions Patient InstructionsRichard Phan MD - 05/04/2018 3:45 PM CST A good site to look for clinical trials in Parkinson's is clinicaltrials.gov A SUPERVISOR documented in this encounter Progress Notes Richard Phan MD - 05/04/2018 12:00 AM CST DEIDRE PANG CSN: [id number] CLINIC NOTE NEUROLOGY PROGRESS NOTE DATE OF SERVICE: 05/04/2018 : 1955 CHIEF COMPLAINT: Followup Parkinson's. HISTORY OF PRESENT ILLNESS: Mr. Pang was seen in the company of his in followup of his Parkinson's. Last time I saw him was in July at [place]. He has done reasonably well since then. [...] without abnormal responses. There are no tremors. Lggchz-mddf-zumrjh and ptsn-higb-saea are accurate. There is minimal if any [...] visit: 15 minutes. 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
--- OUTSIDE RECORDS SUMMARY | 2022-01-20 12:47 | XMS_ITS | Encounter Summary ---
:1955 Author Organization [facility] Address [address] [place] [address] Care Team Providers Name Role Phone Lurdes Thomas MD Primary Care Provider Reason for Visit Reason Comments Prior Authorization Request Encounter Details Date Type Department Care Team Description 08/03/2018 Telephone [employer] GroupMaria Esther Walker A prime healthcare services [facility] MD Prem Request Neurology [address] [facility] [address] [facility] [address] [place], [place] [phone] Social History Tobacco Use Types Packs/Day Years [...] on filedocumented in this encounter Care Teams Pony Worker Relationship Specialty Start Date End Date Lurdes Thomas MD PCP - General 06/18/14 12/11/19 documented as of this encounter
--- OUTSIDE RECORDS SUMMARY | 2022-01-20 12:47 | XMS_ITS | Encounter Summary ---
:1955 Author Organization [facility] Address [address], [place] [address] Care Team Providers Name Role Phone Lurdes Thomas MD Primary Care Provider Reason for Visit Reason Comments Spine Lumbar Encounter Details Date Type Department Care Team Description 07/09/2015 Office Visit [place] [facility] Chris Cain, Right -sided low back Therapy Aurora Briggs, PT pain with right-sided [address] granados (Primary Dx) [place] [address] [place], [place] [phone] (Wo rk) Social History Tobacco Use Types Packs/Day Years Used Date Smoking Tobacco: Never Smokeless Tobacco: Never Alcohol Use Standard Drinks/Week Comments Yes 0 (1 standard drink = 0.6 oz pure alcoho l) Sex Assigned at Date Recorded Not on file documented as of this encounter Progress Notes Aurora Hickey, PT - 07/09/2015 8:51 AM CST Encounter date: 07/09/2015 Pt : 1955 [facility] Physical Therapy Progress Note Visit Number: 13 Initial Certification Period: 05/19/2015 to 08/17/15 Referring Provider: Dr. Maria Esther Phan Visit Diagnosis/ICD: Diagnosis ICD-10-CM ICD-9-CM 1. Right-sided low back pain with right-sided sciatica M54.41 724.3 Precautions: none Onset/Referral Date: 05/19/2015 Orders: Evaluate and treat. [facility] Services: Programming RN, Social Work, [...] above OBJ info and- therapeutic ex (CPT 15081)15 min reviewed /discussed HEP, home management, body mechanics with lifting, turning, pivoting ultrasound (CPT 82266) 12 min US to right LB for 10 min, 1.3 w/cm2, continuous manual therapy (CPT 60120) 18 min joint mobilization to lumbar spine [...] then he sees his MD for recheck [employer]ER SEALS documented in this encounter Plan of Treatment Not on filedocumented as of this encounter Visit Diagnoses Diagnosis Right-sided low back pain with right-beck ed sciatica (HRC) - Primary documented in this encounter Care Teams Online Content Developer Relationship Specialty Start Date End Date Lurdes Thomas MD PCP - General 06/18/14 12/11/19 documented as of this encounter
--- OUTSIDE RECORDS SUMMARY | 2022-01-20 12:47 | XMS_ITS | Encounter Summary ---
:1955 Author Organization [email or web address] Address [address] [address] Care Team Providers Name Role Phone Lurdes Thomas MD Primary Care Provider Reason for Referral Consult/Transfer Care (Routine) - Closed Specialty Diagnoses / Procedures Referred By Contact Refer red To Contact Diagnoses Parkinson's disease (HRC) Maria Esther Phan MD [address] [place], [place] [address] Referral ID Status Reason Start Date Expiration Date Visits Requ ested Visits Authorized [id number] Closed 08/08/2017 11/07/2018 1 1 Scheduling Instructions Your provider has recommended an appoint ment with [facility]. You may call [phone] or marino bardales [phone] to schedule your appointment. 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 documented in this encounter Progress Notes Maria Esther Phan MD - 08/08/2017 12:00 PM CDT NAME: DEIDRE PANG MR#: [id number] CSN: [id number] AUTHENTICATING CLINICIAN: Maria Esther Phan MD CONFIRM #: [id number] LOC: 68178 CLINIC PROGRESS NOTE DATE OF VISIT: 08/08/2017 : 1955 LOCATION: [place]. HISTORY OF PRESENT ILLNESS: Mr. Pang is [...] lower extremities distally.Coordination: No tremor seen today. Wxugtg-eibo-ogitbo is adequate. There is vpyx-rn-ycwabrrc dyskinesia, more so on the left than [...] sooner if necessary. SAP:MEDQ C: CONFIRM #: [id number] documented in this encounter Plan of Treatment Scheduled Referrals Name Type Priority Associated Diagnoses Order S chedule DBS PROGRAMMING CONSULT Referral Routine Parkinson's disea se Ordered: 08/08/2017 (AMB) (HR) documented as of this encounter Visit Diagnoses Diagnosis Parkinson's disease (HRC) - Primary documented in this encounter Care Teams Glass Mould Cleaner Relationship Specialty Start Date End Date Lurdes Thomas MD PCP - General 06/18/14 12/11/19 documented as of this encounter
--- OUTSIDE RECORDS SUMMARY | 2022-01-20 12:47 | XMS_ITS | Encounter Summary ---
:1955 Author Organization [facility] Address [address] [address] Care Team Providers Name Role Phone Lurdes Thomas MD Primary Care Provider Encounter Details Date Type Department Care Team Description 05/05/2016 Notes/Orders [place] [facility], [address] [place], [place] [address] [address] [phone] [place] [address] (Wo rk) Social History Tobacco [...] treatmentorder should be obtained from the physician. DER OPERATOR documented in this encounter Plan of Treatment Not on filedocumented as of this encounter Visit Diagnoses Not on filedocumented in this encounter Care Teams Radar Signal Processing Engineer Relationship Specialty Start Date End Date Lurdes Thomas MD PCP - General 06/18/14 12/11/19 documented as of this encounter
--- OUTSIDE RECORDS SUMMARY | 2022-01-20 12:47 | XMS_ITS | Encounter Summary ---
:1955 Author Organization [facility] Address [address], [place] [address] Care Team Providers Name Role Phone Lurdes Thomas MD Primary Care Provider Reason for Referral Specialty Diagnoses / Procedures Referred By Contact Refer red To Contact Maria Esther Phan MD [address] [place], [place] [address] Referral ID Status Reason Start Date Expiration Date Visits Requ ested Visits Authorized FACTURING COORDINATOR Reason for Visit Reason Comments Back Pain Encounter Details Date Type Department Care Team Description 05/19/2015 Initial Consult [facility] Jordana Ham ht-sided low back Therapy M, PT pain with right-sided [address] [id number] Social History Tobacco Use Types Packs/Day Years [...] [facility] Initial Certification Period: 05/19/2015 to 08/17/15 Referring Provider: Dr. Maria Esther Phan Visit Diagnosis/ICD: Diagnosis ICD-10-CM ICD-9-CM 1. Right-sided low back pain with right-sided sciatica M54.41 724.3 Precautions: none Onset/Referral Date: 05/19/2015 Reason for Referral: -Outpatient PT. Orders: Evaluate and treat. [facility] [place] Services: Programming RN, Social Work, therapy in [...] to residence: Stairs to enter. -Living location: [facility] area. 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 Cooperative. Pleasant. [...] discussed therapist's recommendation to follow up at [facility] with orthopedic PT, provided pt with information regarding how to schedule follow up visit at their clinic, contacted [facility] to update them with transfer of pt; [...] clinic closer to home for treatment with field applications specialist. Pt to continue at [place] location. Pt would benefit from skilled PT [...] Therapeutic exercise. Ultrasound. Interdisciplinary Referrals: PT at [facility], continue with POC Services Recommended: nothing [...] 90 day(s). Total Treatment: 45 minutes The estimation manager is completed by the therapist and the referring clinician's electronic signature certifies medical necessity for the plan above. Completed by Jordana Ham PT License #: [id number] FACTURING COORDINATOR documented in this encounter Plan of Treatment Scheduled Referrals Name Type Priority Associated Diagnoses [facility] Referral Routine Right-sided low back edmond n Ordered: 05/19/2015, with right-sided sciatica Ex keagan: 05/19/2015 documented as of this encounter Visit Diagnoses Diagnosis Right-sided low back pain with right-beck ed sciatica (HRC) documented in this encounter Care Teams Air Conditioning Equipment Mechanic Relationship Specialty Start Date End Date Lurdes Thomas MD PCP - General 06/18/14 12/11/19 documented as of this encounter
--- OUTSIDE RECORDS SUMMARY | 2022-01-20 12:47 | XMS_ITS | Encounter Summary ---
:1955 Author Organization [facility] Address [address], [place] [address] Care Team Providers Name Role Phone Lurdes Thomas MD Primary Care Provider Reason for Visit Reason Onset Date Comments Refill 07/31/2018 Encounter Details Date Type Department Care Team Description 07/31/2018 Refill [facility] Neuroscience Maria Esther Reis MD Refill Center Neurology [address] [facility] [address] [place] [address] [place] [address] [phone] Social History Tobacco Use Types Packs/Day Years [...] on filedocumented in this encounter Care Teams Range Feeder Relationship Specialty Start Date End Date Lurdes Thomas MD PCP - General 06/18/14 12/11/19 documented as of this encounter
--- OUTSIDE RECORDS SUMMARY | 2022-01-20 12:47 | XMS_ITS | Encounter Summary ---
:1955 Author Organization [facility] Address [address], [place] [address] Care Team Providers Name Role Phone Lurdes Thomas MD Primary Care Provider Reason for Visit Reason Comments Spine Lumbar Encounter Details Date Type Department Care Team Description 06/08/2015 Office Visit [place] [facility] Chris Cain, Right -sided low back Therapy Aurora Briggs, PT pain with right-sided [address] granados (Primary Dx) [place] [address] [place], [place] [phone] (Wo rk) Social History Tobacco Use Types Packs/Day Years Used Date Smoking Tobacco: Never Smokeless Tobacco: Never Alcohol Use Standard Drinks/Week Comments Yes 0 (1 standard drink = 0.6 oz pure alcoho l) Sex Assigned at Date Recorded Not on file documented as of this encounter Progress Notes Aurora Hickey, PT - 06/23/2015 2:05 PM CST Encounter date: 06/08/2015 [facility] : 1955 [facility] Visit Number: 6) Initial Certification Period: 05/19/2015 to 08/17/15 Referring Provider: Dr. Maria Esther Phan Visit Diagnosis/ICD: Diagnosis ICD-10-CM ICD-9-CM 1. Right-sided low back pain with right-sided sciatica M54.41 724.3 Precautions: none Onset/Referral Date: 05/19/2015 Orders: Evaluate and treat. [facility] Services: Programming RN, Social Work, [...] above OBJ info and- manual therapy (CPT 77688) 10 min joint mobilization, supine end range thrust technique, right and left, repeated twice therapeutic ex (CPT 72983)25 min hip series of stretches to combine some of the exercises he has been doing added flexion in step standing, left, than right side glide left added single leg raise in hands/knees position, 5 sec hold ultrasound (CPT 43824) 12 min US to right LB for [...] manual therapy, exercise progression, modalities if needed. ROBE ASSISTANT documented in this encounter Plan of Treatment Not on filedocumented as of this encounter Visit Diagnoses Diagnosis Right-sided low back pain with right-beck ed sciatica (HRC) - Primary documented in this encounter Care Teams Pipe Assembly Worker Relationship Specialty Start Date End Date Lurdes Thomas MD PCP - General 06/18/14 12/11/19 documented as of this encounter
--- OUTSIDE RECORDS SUMMARY | 2022-01-20 12:47 | XMS_ITS | Encounter Summary ---
:1955 Author Organization [facility] Address [address], [place] [address] Care Team Providers Name Role Phone Lurdes Thomas MD Primary Care Provider Reason for Visit Reason Comments Spine Lumbar Encounter Details Date Type Department Care Team Description 06/04/2015 Office Visit [place] [facility] Chris Cain, Right -sided low back Therapy Aurora Briggs, PT pain with right-sided [address] granados (Primary Dx) [place] [address] [place], [place] [phone] (Wo rk) Social History Tobacco Use Types Packs/Day Years Used Date Smoking Tobacco: Never Smokeless Tobacco: Never Alcohol Use Standard Drinks/Week Comments Yes 0 (1 standard drink = 0.6 oz pure alcoho l) Sex Assigned at Date Recorded Not on file documented as of this encounter Progress Notes Aurora Hickey, PT - 06/23/2015 2:07 PM CST Encounter date: 06/04/2015 Pt : 1955 Jasmine [facility] Physical Therapy Progress Note Visit Number: 5 Initial Certification Period: 05/19/2015 to 08/17/15 Referring Provider: Dr. Maria Esther Phan Visit Diagnosis/ICD: Diagnosis ICD-10-CM ICD-9-CM 1. Right-sided low back pain with right-sided sciatica M54.41 724.3 Precautions: none Onset/Referral Date: 05/19/2015 Orders: Evaluate and treat. [facility] Services: Programming RN, Social Work, [...] above OBJ info and- manual therapy (CPT 41290) 10 min joint mobilization, supine end range thrust technique, right and left, repeated twice therapeutic ex (CPT 39260)25 min added hip series of stretches to combine some of the exercises he has been doing ultrasound (CPT 91609) 10 min US to right LB for [...] manual therapy, exercise progression, modalities if needed. RNAL MEDICINE PHYSICIAN documented in this encounter Plan of Treatment Not on filedocumented as of this encounter Visit Diagnoses Diagnosis Right-sided low back pain with right-beck ed sciatica (HRC) - Primary documented in this encounter Care Teams Mortgage Collector Relationship Specialty Start Date End Date Lurdes Thomas MD PCP - General 06/18/14 12/11/19 documented as of this encounter
--- OUTSIDE RECORDS SUMMARY | 2022-01-20 12:47 | XMS_ITS | Encounter Summary ---
:1955 Author Organization [facility] Address [address] [address] Care Team Providers Name Role Phone Lurdes Thomas MD Primary Care Provider Reason for Visit Reason Comments Spine Lumbar Encounter Details Date Type Department Care Team Description 06/30/2015 Office Visit [place] [facility] Chris Cain, Right -sided low back Therapy Aurora Briggs, PT pain with right-sided [address] granados (Primary Dx) [place] [address] [place], [place] [phone] (Wo rk) Social History Tobacco Use Types Packs/Day Years Used Date Smoking Tobacco: Never Smokeless Tobacco: Never Alcohol Use Standard Drinks/Week Comments Yes 0 (1 standard drink = 0.6 oz pure alcoho l) Sex Assigned at Date Recorded Not on file documented as of this encounter Progress Notes Aurora Hickey, PT - 06/30/2015 11:02 AM CST Encounter date: 06/30/2015 Pt : 1955 Jasmine [facility] Physical Therapy Progress Note Visit Number: 11 Initial Certification Period: 05/19/2015 to 08/17/15 Referring Provider: Dr. Maria Esther Phan Visit Diagnosis/ICD: Diagnosis ICD-10-CM ICD-9-CM 1. Right-sided low back pain with right-sided sciatica M54.41 724.3 Precautions: none Onset/Referral Date: 05/19/2015 Orders: Evaluate and treat. 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
--- OUTSIDE RECORDS SUMMARY | 2022-01-20 12:47 | XMS_ITS | Encounter Summary ---
:1955 Author Organization [facility] Address [address], [place] [address] Care Team Providers Name Role Phone Lurdes Thomas MD Primary Care Provider Reason for Visit Reason Comments Other Encounter Details Date Type Department Care Team Description 12/07/2017 Telephone [facility] Doris Arauz, RN Other [address] corina Lamas [place], [place] [address] Social History Tobacco Use Types Packs/Day Years Used Date Smoking Tobacco: Never Smokeless Tobacco: Never Alcohol Use Standard Drinks/Week Comments Yes 0 (1 standard drink = 0.6 oz pure alcoho l) Sex Assigned at Date Recorded Not on file documented as of this encounter Nursing Notes Doris Arauz, RN - 12/07/2017 2:28 PM CDT Received call from [employer]. They have been trying to call Andrew to schedule shipment of Beautylish and unable to reach him. Called and LM for Andrew asking him to call [employer] at [phone]. [employer] will mail a letter also, asking him to call them. documented in this encounter Plan of Treatment Not on filedocumented as of this encounter Visit Diagnoses Not on filedocumented in this encounter Care Teams Strap Buckler Machine Relationship Specialty Start Date End Date Lurdes Thomas MD PCP - General 06/18/14 12/11/19 documented as of this encounter
--- OUTSIDE RECORDS SUMMARY | 2022-01-20 12:47 | XMS_ITS | Encounter Summary ---
:1955 Author Organization [facility] Address [address] [place] [address] Care Team Providers Name Role Phone Lurdes Thomas MD Primary Care Provider Encounter Details Date Type Department Care Team Description 05/09/2018 Telephone [facility] Princess Phan, [place] [facility] [address] [facility] [address] [place] [address] [place], [place] [phone] (Wo rk) Social History Tobacco Use Types [...] script stating-- need to clarify medication Rytary [phone] caps. Please advise. Nadia Persaud 05/09/2018, 9:20 AM ER DOWN documented in this encounter Plan of Treatment Not on filedocumented as of this encounter Visit Diagnoses Not on filedocumented in this encounter Care Teams Regulatory Administrator Relationship Specialty Start Date End Date Lurdes Thomas MD PCP - General 06/18/14 12/11/19 documented as of this encounter
--- OUTSIDE RECORDS SUMMARY | 2022-01-20 12:47 | XMS_ITS | Encounter Summary ---
:1955 Author Organization [facility] Address [address], [place] [address] Care Team Providers Name Role Phone Lurdes Thomas MD Primary Care Provider Reason for Visit Reason Comments Spine Lumbar Encounter Details Date Type Department Care Team Description 06/10/2015 Office Visit [place] [facility] Chris Cain, Right -sided low back Therapy Aurora Briggs, PT pain with right-sided [address] granados (Primary Dx) [place] [address] [place], [place] [phone] (Wo rk) Social History Tobacco Use Types Packs/Day Years Used Date Smoking Tobacco: Never Smokeless Tobacco: Never Alcohol Use Standard Drinks/Week Comments Yes 0 (1 standard drink = 0.6 oz pure alcoho l) Sex Assigned at Date Recorded Not on file documented as of this encounter Progress Notes Aurora Hickey, PT - 06/23/2015 2:04 PM CST Encounter date: 06/10/2015 Pt : 1955 Jasmine [facility] Physical Therapy Progress Note Visit Number: 7 Initial Certification Period: 05/19/2015 to 08/17/15 Referring Provider: Dr. Maria Esther Phan Visit Diagnosis/ICD: Diagnosis ICD-10-CM ICD-9-CM 1. Right-sided low back pain with right-sided sciatica M54.41 724.3 Precautions: none Onset/Referral Date: 05/19/2015 Orders: Evaluate and treat. [facility] Services: Programming RN, Social Work, [...] above OBJ info and- therapeutic ex (CPT 75832)12 min hip series of stretches to combine some of the exercises he has been doing reviewed flexion in step standing, left, than right. He still gets a little glitch on right side side glide left single leg raise in hands/knees position, 5 sec hold manual therapy (CPT 51629) 10 min In left sanchez position, MET to low T and lumbar spine ultrasound (CPT 01810) 11 min US to right LB for 10 min, 1.3 w/cm2, continuous manual therapy (CPT 38339) 12 min soft tissue mobilization use of plaster helper tool to T and lumbar parsspinals [...] manual therapy, exercise progression, modalities if needed. ENTICE STYLIST documented in this encounter Plan of Treatment Not on filedocumented as of this encounter Visit Diagnoses Diagnosis Right-sided low back pain with right-beck ed sciatica (HRC) - Primary documented in this encounter Care Teams Certified Professional Controller Relationship Specialty Start Date End Date Lurdes Thomas MD PCP - General 06/18/14 12/11/19 documented as of this encounter
--- OUTSIDE RECORDS SUMMARY | 2022-01-20 12:47 | XMS_ITS | Encounter Summary ---
:1955 Author Organization [facility] Address [address] [place] [address] Care Team Providers Name Role Phone Lurdes Thomas MD Primary Care Provider Reason for Referral Specialty Diagnoses / Procedures Referred By Contact Refer red To Contact Maria Esther Phan MD [address] [place], [place] [address] Referral ID Status Reason Start Date Expiration Date Visits Requ ested Visits Authorized NER INDUSTRIAL Reason for Visit Reason Comments Device Check Encounter Details Date Type Department Care Team Description 05/19/2015 Nursing Visit [facility] Shawnee Hilario, PD (Parkinson's [address] RN disease) [place] [address] Social History Tobacco Use Types [...] implantation. Surgeon:Dr. Gonzalez [facility] date/location: 09/09/24 [place] Battery replacement: None Device type: Activa PC [...] point I readjusted his range on patient php programmer. Patient php programmer range Left 2.4-2.8 Right 2.3-2.7 Total face to face programming time: 50 minutes Follow up: 6 months Supervising provider: Dr. Maria Esther Hilario, RN NER INDUSTRIAL documented in this encounter Plan of Treatment Scheduled Referrals Name Type Priority Associated Diagnoses Order S chedule DBS PROGRAMMING CONSULT Referral Routine PD (Parkinson's O rdered: 05/19/2015, (AMB) disease) ([facility]) Expires: 04/22 documented as of this encounter Visit Diagnoses Diagnosis PD (Parkinson's disease) ([facility]) Paralysis agitans documented in this encounter Care Teams Inweaver Relationship Specialty Start Date End Date Lurdes Thomas MD PCP - General 06/18/14 12/11/19 documented as of this encounter
--- OUTSIDE RECORDS SUMMARY | 2022-01-20 12:47 | XMS_ITS | Encounter Summary ---
:1955 Author Organization [facility] Address [address], [place] [address] Care Team Providers Name Role Phone Lurdes Thomas MD Primary Care Provider Reason for Visit Reason Comments Spine Lumbar Encounter Details Date Type Department Care Team Description 05/28/2015 Office Visit [place] [facility] Chris Cain, Right -sided low back Therapy Aurora Briggs, PT pain with right-sided [address] granados (Primary Dx) [place] [address] [place], [place] [phone] (Wo rk) Social History Tobacco Use Types Packs/Day Years Used Date Smoking Tobacco: Never Smokeless Tobacco: Never Alcohol Use Standard Drinks/Week Comments Yes 0 (1 standard drink = 0.6 oz pure alcoho l) Sex Assigned at Date Recorded Not on file documented as of this encounter Progress Notes Aurora Hickey, PT - 05/28/2015 12:14 PM CST Encounter date: 05/28/2015 Pt : 1955 [facility] Physical Therapy Progress Note Visit Number: 2 Initial Certification Period: 05/19/2015 to 08/17/15 Referring Provider: Dr. Maria Esther Phan Visit Diagnosis/ICD: Diagnosis ICD-10-CM ICD-9-CM 1. Right-sided low back pain with right-sided sciatica M54.41 724.3 Precautions: none Onset/Referral Date: 05/19/2015 Reason for Referral: -Outpatient PT. Orders: Evaluate and treat. [facility] Services: Programming RN, Social Work, [...] with REIL Treatment/Education Today: therapeutic ex (CPT 90416)15 min time spent with orthopedic assessment manual therapy (CPT 41248) 15 min in prone, general mobilization. In supine, end range rotational thrust to the right, repeated twice, and to the left, with cavitation. Afterwards, no pain with supine to sit, and sit to stand. still is shifted, but no pain ultrasound (CPT 79692) 12 min Added: US to right LB for 10 min, 1.3 w/cm2, continous therapeutic ex (CPT 80394) 15 min Reviewed and practiced his HEP: [...] Advised to use lumbar support with sitting GHT REPRESENTATIVE documented in this encounter Plan of Treatment Not on filedocumented as of this encounter Visit Diagnoses Diagnosis Right-sided low back pain with right-beck ed sciatica (HRC) - Primary documented in this encounter Care Teams Lead Blender Relationship Specialty Start Date End Date Lurdes Thomas MD PCP - General 06/18/14 12/11/19 documented as of this encounter
--- OUTSIDE RECORDS SUMMARY | 2022-01-20 12:47 | XMS_ITS | Encounter Summary ---
:1955 Author Organization [facility] Address [address], [place] [address] Care Team Providers Name Role Phone Lurdes Thomas MD Primary Care Provider Encounter Details Date Type Department Care Team Description 05/06/2016 Notes/Orders [place] [facility] P, OTR/L [address] [place], [place] [address] [facility] [phone] [place] [address] (Wo rk) Social History Tobacco [...] physician. RODRIGUE Gandhi/Stefan 05/06/2016, 9:56 AM ' ERTY MANAGEMENT ASSISTANT documented in this encounter Plan of Treatment Not on filedocumented as of this encounter Visit Diagnoses Not on filedocumented in this encounter Care Teams Executive Advisor Relationship Specialty Start Date End Date Lurdes Thomas MD PCP - General 06/18/14 12/11/19 documented as of this encounter
--- OUTSIDE RECORDS SUMMARY | 2022-01-20 12:47 | XMS_ITS | Encounter Summary ---
:1955 Author Organization [facility] Address [address] [place] [address] Care Team Providers Name Role Phone Lurdes Thomas MD Primary Care Provider Reason for Visit Reason Comments Research Encounter Details Date Type Department Care Team Description 05/21/2015 Telephone [facility] Maria Esther Phan MD Research [address] [place], [place] [address] [place] [address] (Wo rk) Social History Tobacco [...] [facility] would like to pursue the study and understands that enrollment may close before he hasbeen stable for 60 days on a different anti-depressant. Zoloft is an acceptable medication. Pharmacyhas been updated. Please write specific instructions on this switch. PLATFORM SUPERVISOR documented in this encounter Plan of Treatment Not on filedocumented as of this encounter Visit Diagnoses Not on filedocumented in this encounter Care Teams Case Management Rn Relationship Specialty Start Date End Date Lurdes Thomas MD PCP - General 06/18/14 12/11/19 documented as of this encounter
--- OUTSIDE RECORDS SUMMARY | 2022-01-20 12:47 | XMS_ITS | Encounter Summary ---
:1955 Author Organization [facility] Address [address], [place] [address] Care Team Providers Name Role Phone Lurdes Thomas MD Primary Care Provider Reason for Visit Reason Comments Prior Authorization For Medication Gocovri Encounter Details Date Type Department Care Team Description 08/15/2017 Telephone [facility] Doris Arauz, Prior Authorization For [address] forensic economist (Gocovri) [place], [place] [address] Social History Tobacco Use Types Packs/Day Years [...] phone. Pt's Insurer: Eleazar Insurer's contact #: [phone] Name of Drug: Goocovri 137mg Dx for Drug: dyskinesia due to PD medications Tried/failed drugs: Amantadine Medication was approved. Approval dates: 07/16/17 to 08/15/18 Case#: [id number] FYI documented in this encounter Plan of Treatment Not on filedocumented as of this encounter Visit Diagnoses Not on filedocumented in this encounter Care Teams Clothing Presser Relationship Specialty Start Date End Date Lurdes Thomas MD PCP - General 06/18/14 12/11/19 documented as of this encounter
--- OUTSIDE RECORDS SUMMARY | 2022-01-20 12:47 | XMS_ITS | Encounter Summary ---
:1955 Author Organization [facility] Address [address] [address] Care Team Providers Name Role Phone Lurdes Thomas MD Primary Care Provider Reason for Visit Reason Comments Refill Encounter Details Date Type Department Care Team Description 07/31/2018 Telephone [facility] Shawnee Hilario, RN Refill [address] [place], [place] [address] Social History Tobacco Use [...] Hilario RN - 07/31/2018 10:11 AM CDT [facility] calling for refill on GoCovri. To be faxed to [phone]. [facility]. Please take care of. documented in this encounter Plan of Treatment Not on filedocumented as of this encounter Visit Diagnoses Not on filedocumented in this encounter Care Teams Glass Robot Operator Relationship Specialty Start Date End Date Serum, Lurdes C, MD PCP - General 06/18/14 12/11/19 documented as of this encounter
--- OUTSIDE RECORDS SUMMARY | 2022-01-20 12:47 | XMS_ITS | Encounter Summary ---
:1955 Author Organization [facility] Address [address] [address] Care Team Providers Name Role Phone Lurdes Thomas MD Primary Care Provider Reason for Visit Reason Comments Spine Lumbar Encounter Details Date Type Department Care Team Description 06/02/2015 Office Visit [facility] Chris Cain, Right -sided low back Therapy Aurora Briggs, PT pain with right-sided [address] granados (Primary Dx) [place] [address] [place], [place] [phone] (Wo rk) Social History Tobacco Use Types Packs/Day Years Used Date Smoking Tobacco: Never Smokeless Tobacco: Never Alcohol Use Standard Drinks/Week Comments Yes 0 (1 standard drink = 0.6 oz pure alcoho l) Sex Assigned at Date Recorded Not on file documented as of this encounter Progress Notes Aurora Hickey, PT - 06/02/2015 10:07 AM CST Encounter date: 06/02/2015 Pt : 1955 [facility] Physical Therapy Progress Note Visit Number: 3 Initial Certification Period: 05/19/2015 to 08/17/15 Referring Provider: Dr. Maria Esther Phan Visit Diagnosis/ICD: Diagnosis ICD-10-CM ICD-9-CM 1. Right-sided low back pain with right-sided sciatica M54.41 724.3 Precautions: none Onset/Referral Date: 05/19/2015 Reason for Referral: -Outpatient PT. Orders: Evaluate and treat. [facility] Services: Programming RN, Social Work, [...] with REIL Treatment/Education Today: therapeutic ex (CPT 69762)5 min time spent with orthopedic assessment ultrasound (CPT 82717) 12 min US to right LB for 10 min, 1.3 w/cm2, continous therapeutic ex (CPT 52948) 30 min Reviewed and practiced his HEP: [...] manual therapy, exercise progression, modalities if needed. UM HOST/HOSTESS documented in this encounter Plan of Treatment Not on filedocumented as of this encounter Visit Diagnoses Diagnosis Right-sided low back pain with right-beck ed sciatica (HRC) - Primary documented in this encounter Care Teams Spring Former Machine Relationship Specialty Start Date End Date Lurdes Thomas MD PCP - General 06/18/14 12/11/19 documented as of this encounter
--- OUTSIDE RECORDS SUMMARY | 2022-01-20 12:47 | XMS_ITS | Encounter Summary ---
:1955 Author Organization [facility] Address [address] [place] [address] Care Team Providers Name Role Phone Lurdes Thomas MD Primary Care Provider Reason for Visit Reason Comments QUESTIONS, GENERAL Encounter Details Date Type Department Care Team Description 07/06/2017 Telephone [facility] Shawnee Hilario, RN QUESTIONS, GENERAL [address] [place], [place] [address] Social History Tobacco Use [...] seen next and get his battery checked. N LUMBER GRADER documented in this encounter Plan of Treatment Not on filedocumented as of this encounter Visit Diagnoses Not on filedocumented in this encounter Care Teams Edge Trimmer Relationship Specialty Start Date End Date Lurdes Thomas MD PCP - General 06/18/14 12/11/19 documented as of this encounter
--- OUTSIDE RECORDS SUMMARY | 2022-01-20 12:47 | XMS_ITS | Encounter Summary ---
:1955 Author Organization [facility] Address [address], [place] [address] Care Team Providers Name Role Phone Lurdes Thomas MD Primary Care Provider Reason for Visit Reason Comments Paperwork G[employer] Encounter Details Date Type Department Care Team Description 08/09/2017 Notes/Orders [facility] Doris Arauz, RN [address] corina Lamas [place], [place] [address] Social History Tobacco Use Types Packs/Day Years Used Date Smoking Tobacco: Never Smokeless Tobacco: Never Alcohol Use Standard Drinks/Week Comments Yes 0 (1 standard drink = 0.6 oz pure alcoho l) Sex Assigned at Date Recorded Not on file documented as of this encounter Progress Notes Doris Arauz RN - 08/09/2017 2:43 PM CDT Faxed completed [employer] paperwork and Rx to [facility]. FAX: [phone] documented in this encounter Plan of Treatment Not on filedocumented as of this encounter Visit Diagnoses Not on filedocumented in this encounter Care Teams Cad Engineer Relationship Specialty Start Date End Date Lurdes Thomas MD PCP - General 06/18/14 12/11/19 documented as of this encounter
--- OUTSIDE RECORDS SUMMARY | 2022-01-20 12:47 | XMS_ITS | Encounter Summary ---
:1955 Author Organization [facility] Address [address] [address] Care Team Providers Name Role Phone Lurdes Thomas MD Primary Care Provider Reason for Visit Reason Comments Spine Lumbar Encounter Details Date Type Department Care Team Description 07/02/2015 Office Visit [place] Chris Cain, Right -sided low back Therapy Aurora Briggs, PT pain with right-sided [address] rganados (Primary Dx) [place] [address] [place], [place] [phone] (Wo rk) Social History Tobacco Use Types Packs/Day Years Used Date Smoking Tobacco: Never Smokeless Tobacco: Never Alcohol Use Standard Drinks/Week Comments Yes 0 (1 standard drink = 0.6 oz pure alcoho l) Sex Assigned at Date Recorded Not on file documented as of this encounter Progress Notes Aurora Hickey, PT - 07/02/2015 11:56 AM CST Encounter date: 07/02/2015 Pt : 1955 [facility] Physical Therapy Progress Note Visit Number: 12 Initial Certification Period: 05/19/2015 to 08/17/15 Referring Provider: Dr. Maria Esther Phan Visit Diagnosis/ICD: Diagnosis ICD-10-CM ICD-9-CM 1. Right-sided low back pain with right-sided sciatica M54.41 724.3 Precautions: none Onset/Referral Date: 05/19/2015 Orders: Evaluate and treat. 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
--- OUTSIDE RECORDS SUMMARY | 2022-01-20 12:48 | XMS_ITS | Encounter Summary ---
:1955 Author Organization [employer] Address [address] [place] [address] Care Team Providers Name Role Phone Lurdes Thomas MD Primary Care Provider Reason for Visit Reason Comments Medication Questions Encounter Details Date Type Department Care Team Description 12/08/2014 Telephone [facility] Sheri Pearson, Medication Questions [address] corina BERRY [place], [place] [address] Social History Tobacco Use [...] on filedocumented in this encounter Care Teams Ear Nose And Throat Specialist Relationship Specialty Start Date End Date Lurdes Thomas MD PCP - General 06/18/14 12/11/19 documented as of this encounter
--- OUTSIDE RECORDS SUMMARY | 2022-01-20 12:48 | XMS_ITS | Encounter Summary ---
:1955 Author Organization [employer] Address [address], [place] [address] Care Team Providers Name Role Phone Lurdes Thomas MD Primary Care Provider Reason for Visit Reason Comments Other Encounter Details Date Type Department Care Team Description 12/09/2014 Telephone [facility] Doris Arauz, RN Other [address] [place], [place] [address] Social History Tobacco Use [...] documented in this encounter Care Teams Manager Regulatory Relationship Specialty Start Date End Date Lurdes Thomas MD PCP - General 06/18/14 12/11/19 documented as of this encounter
--- OUTSIDE RECORDS SUMMARY | 2022-01-20 12:48 | XMS_ITS | Encounter Summary ---
:1955 Author Organization [employer] Address [address] [address] Care Team Providers Name Role Phone Lurdes Thomas MD Primary Care Provider Reason for Visit Reason Comments Social Service Encounter Details Date Type Department Care Team Description 10/09/2014 Telephone [facility] Fabi Quinones LISW Social Service [address] [place], [place] [address] Social History Tobacco Use [...] with PD and a well-known clinic in [place]. Natasha stated she had time today to call and inquire about insurance and get an appointment set. She was appreciative of the resources and support from Dr Phan. documented in this encounter Plan of Treatment Not on filedocumented as of this encounter Visit Diagnoses Not on filedocumented in this encounter Care Teams Box Estimator Relationship Specialty Start Date End Date Lurdes Thomas MD PCP - General 06/18/14 12/11/19 documented as of this encounter
--- OUTSIDE RECORDS SUMMARY | 2022-01-20 12:48 | XMS_ITS | Encounter Summary ---
:1955 Author Organization [employer] Address [address], [place] [address] Care Team Providers Name Role Phone Lurdes Thomas MD Primary Care Provider Reason for Visit Reason Comments Back Pain Encounter Details Date Type Department Care Team Description 12/02/2014 Telephone [facility] Katalina Laughlin, PT Back Pain [address] arriaga [address] [place], [place] [address] [place], [place] [phone] (Wo rk) Social History Tobacco Use [...] schedule. Offered to transfer his care to [facility], which he prefers to do. Suggested scheduling PT visit there as soon as possible. Will send email to PT at [facility] to coordinate care. Katalina Laughlin PT Physical Therapist [place] License # [id number] documented in this encounter Plan of Treatment Not on filedocumented as of this encounter Visit Diagnoses Not on filedocumented in this encounter Care Teams It Communications Specialist Relationship Specialty Start Date End Date Lurdes Thomas MD PCP - General 06/18/14 12/11/19 documented as of this encounter
--- OUTSIDE RECORDS SUMMARY | 2022-01-20 12:48 | XMS_ITS | Encounter Summary ---
:1955 Author Organization [employer] Address [address] [address] Care Team Providers Name Role Phone Lurdes Thomas MD Primary Care Provider Reason for Visit Reason Comments No Show Encounter Details Date Type Department Care Team Description 03/03/2015 Telephone [facility] Shawnee Hilario, RN No Show [address] [place], [place] [address] Social History Tobacco Use [...] and leave him a message. I called [phone] and it sounded like someone answered but no voice heard. Iwill try later. documented in this encounter Plan of Treatment Not on filedocumented as of this encounter Visit Diagnoses Not on filedocumented in this encounter Care Teams Joinery Factory Worker Relationship Specialty Start Date End Date Lurdes Thomas MD PCP - General 06/18/14 12/11/19 documented as of this encounter
--- OUTSIDE RECORDS SUMMARY | 2022-01-20 12:48 | XMS_ITS | Encounter Summary ---
:1955 Author Organization [facility] Address [address] [place] [address] Care Team Providers Name Role Phone Lurdes Thomas MD Primary Care Provider Reason for Referral Specialty Diagnoses / Procedures Referred By Contact Refer red To Contact Maria Esther Phan MD [address] [place], [place] [address] Referral ID Status Reason Start Date Expiration Date Visits Requ ested Visits Authorized Reason for Visit Reason Comments Device Check Encounter Details Date Type Department Care Team Description 11/12/2014 Nursing Visit [place] [facility] Doris Arauz, [place] [address] corina BERRY [place], [place] [address] Social History Tobacco Use [...] implantation. Surgeon: Dr. Gonzalez Rowland Surgery date/location: [facility], 09/09/14 Battery replacement: None Device type: Activia [...] check. Therapy impedence: 1410 on 1.579. Pt gis programmer range: 2.1-2.7 R STN: 10 Positive, 9 Negative, Amp: 2.1, PW: 60, Rate: 150. No problems found on 1.5v impedence check. Therapy impedence: 1149 on 1.831. Pt gis programmer range: 1.7-2.5 Final settings: No changes [...] agitans documented in this encounter Care Teams Medical Billing And Coding Instructor Relationship Specialty Start Date End Date Lurdes Thomas MD PCP - General 06/18/14 12/11/19 documented as of this encounter
--- OUTSIDE RECORDS SUMMARY | 2022-01-20 12:48 | XMS_ITS | Encounter Summary ---
:1955 Author Organization [employer] Address [address] [address] Care Team Providers Name Role Phone Lurdes Thomas MD Primary Care Provider Reason for Visit Reason Comments Sleep problems Back Pain Questions Encounter Details Date Type Department Care Team Description 12/02/2014 Office Visit [facility] Parashos, Maria Esther Paralysis agitans [address], MD (Primary Dx) Drive [address] [facility] [address] [place], [place] [phone] (Wo rk) Social History Tobacco Use Types [...] Body Mass Index 27.73 07/08/2014 8:56 AM TOOL HARDENER documented in this encounter Patient Instructions Patient InstructionsMaria Esther Phan MD - 12/02/2014 3:43 PM CDT Please call the [facility] nurse line for any questions, [...] agitans documented in this encounter Care Teams Insulation Cupola Charger Relationship Specialty Start Date End Date Lurdes Thomas MD PCP - General 06/18/14 12/11/19 documented as of this encounter
--- OUTSIDE RECORDS SUMMARY | 2022-01-20 12:48 | XMS_ITS | Encounter Summary ---
:1955 Author Organization [employer] Address [address], [place] [address] Care Team Providers Name Role Phone Lurdes Thomas MD Primary Care Provider Encounter Details Date Type Department Care Team Description 02/02/2015 Notes/Orders [facility] Katalina Laughlin, PT [address] ar[place] [address] [place] [address] [place], [place] [phone] (Wo rk) Social History Tobacco Use [...] 90 day(s). Katalina Laughlin PT Physical Therapist [place] License # [id number] documented in this encounter Plan of Treatment Not on filedocumented as of this encounter Visit Diagnoses Not on filedocumented in this encounter Care Teams Body Wirer Relationship Specialty Start Date End Date Lurdes Thomas MD PCP - General 06/18/14 12/11/19 documented as of this encounter
--- OUTSIDE RECORDS SUMMARY | 2022-01-20 12:48 | XMS_ITS | Encounter Summary ---
:1955 Author Organization [facility] Address [address] [place] [address] Care Team Providers Name Role Phone Lurdes Thomas MD Primary Care Provider Reason for Referral Specialty Diagnoses / Procedures Referred By Contact Refer red To Contact Maria Esther Phan MD [address] [place], [place] [address] Referral ID Status Reason Start Date Expiration Date Visits Requ ested Visits Authorized Reason for Visit Reason Comments VOICE, LOSS OF Encounter Details Date Type Department Care Team Description 11/04/2014 Initial Consult [facility] Casi De La Rosa (Primary Dx); Therapy J, CODE ENFORCEMENT OFFICER Dysphonia; [address] [place] [place], [place] [phone] Social History Tobacco Use Types Packs/Day Years Used Date Smoking Tobacco: Never Smokeless Tobacco: Never Alcohol Use Standard Drinks/Week Comments Yes 0 (1 standard drink = 0.6 oz pure alcoho l) Sex Assigned at Date Recorded Not on file documented as of this encounter Progress Notes Casi De La Rosa, CODE ENFORCEMENT OFFICER - 11/04/2014 4:56 PM CDT Encounter Date: 11/04/2014 Patient : 1955 Speech Therapy - Parkinson's Disease Evaluation and Plan of Care [facility] Multidisciplinary Assessment Outpatient Evaluation Initial [...] feels it is slightly worse. 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 He is on the phone a lot [...] Any liquids. Previous Speech Therapy: Received at [facility]. Evaluation 08/23/07 - WFL. Evaluation 06/18/14 with recommendation for treatment. He did not follow up then. Is ready to pursue treatmentnow. Hand Dominance: Right Hearing Acuity: Within Functional Limits. Glasses: Reading glasses. Education: High school. 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 Marital Status: . Living Environment: [...] on his own. Recommendations: Individual speech therapy. Streets And Buildings Decorator Speech Goal: Client will be able to be understood without repetition 80% of the time in their daily environment as measured by patient report. Half-Way Swallowing Goal: -None Half-Way Memory/Cognition Goal: None. Short Term Goals: -Independent [...] achieve intelligible loudness. Goals Achieved Today at [facility]: -Client and/or family verbalized comprehension of today's [...] family in agreement with care plan. The renal dialysis rn is completed by the therapist, and the referring clinician's electronic signature certifies medical necessity for the plan above. documented in this encounter Plan of Treatment Scheduled Referrals Name Type Priority Associated Diagnoses Order [facility] Speech Therapy Referral Routine Paralysis agitans (HRC) Or dered: 11/04/2014, Expires: 2014 documented as of this encounter Visit Diagnoses Diagnosis Paralysis agitans (HRC) - Primary Paralysis agitans Dysphonia Dysarthria documented in this encounter Care Teams Hydraulic Rock Drill Operator Relationship Specialty Start Date End Date Lurdes Thomas MD PCP - General 06/18/14 12/11/19 documented as of this encounter
--- OUTSIDE RECORDS SUMMARY | 2022-01-20 12:48 | XMS_ITS | Encounter Summary ---
:1955 Author Organization [employer] Address [address] [place] [address] Care Team Providers Name Role Phone Lurdes Thomas MD Primary Care Provider Reason for Referral Specialty Diagnoses / Procedures Referred By Contact Refer red To Contact Maria Esther Phan MD [address] [place], [place] [address] Referral ID Status Reason Start Date Expiration Date Visits Requ ested Visits Authorized Reason for Visit Reason Comments Balance/gait Dysfunction Encounter Details Date Type Department Care Team Description 11/04/2014 Initial Consult [facility] Katalina Laughlin normality of gait (Primary Dx); Therapy L, PT Paralysis agitans; [address] [facility] [place] [address] [phone] Social History Tobacco Use Types Packs/Day Years [...] 1955 Physical Therapy Parkinson Evaluation/Plan of Care [facility] Initial Certification Period: 11/04/2014 to 02/02/15 Referring Provider: Dr. Maria Esther Phan Visit Diagnosis/ICD: Diagnosis (ICD9) ICD-9-CM ICD-10-CM 1. Abnormality of gait 781.2 R26.9 2. Paralysis agitans (HCC) 332.0 G20 3. Personal history of fall V15.88 Z91.81 Precautions: Fall precautions, DBS Onset/Referral Date: 10/14/14 Reason for Referral: Outpatient PT. Orders: Evaluate and treat. [facility] Services: Occupational therapy. Speech therapy. Exacerbation Date: [...] to residence: Stairs to enter. -[facility] -Living environment: Urban-mostly paved areas [...] Clear. Rapid speech, occasional stuttering. 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 Did recently travel to [place] on business, however. OBJECTIVE Blood Pressure: Symptoms: [...] Goal Achievement: Distance from center (lives in [place]) Rehab Prognosis: Good PLAN Planned Treatment: ADL/Home [...] 90 day(s). Total Treatment: 60 minutes The hot header operator is completed by the therapist and the referring clinician's electronic signature certifies medical necessity for the plan above. Katalina Lauhglin PT Physical Therapist [place] License # [id number] [...] fall documented in this encounter Care Teams Prototype Fabricator Relationship Specialty Start Date End Date Lurdes Thomas MD PCP - General 06/18/14 12/11/19 documented as of this encounter
--- OUTSIDE RECORDS SUMMARY | 2022-01-20 12:48 | XMS_ITS | Encounter Summary ---
:1955 Author Organization [facility] Address [address] [place] [address] Care Team Providers Name Role Phone Lurdes Thomas MD Primary Care Provider Reason for Referral Specialty Diagnoses / Procedures Referred By Contact Refer red To Contact Maria Esther Phan MD [address] [place], [place] [address] Referral ID Status Reason Start Date Expiration Date Visits Requ ested Visits Authorized Reason for Visit Reason Comments Device Check Encounter Details Date Type Department Care Team Description 10/14/2014 Nursing Visit [facility] Shawnee Hilario, RN [place] [address] arri[place], [place] [address] Social History Tobacco Use [...] DBS implantation. Surgeon:Dr. Gonzalez Rowland Surgery date/location: [facility] 09/09/2014 Battery replacement: None Device type: Activa [...] 2.2V PW 60 Rate 150 Range on senior analyst programmer 2.1-2.7 Right STN 9 negative 10 positive 2.1V PW 60 Rate 150 Range on senior analyst programmer 1.8-2.6 If he wants to try [...] agitans documented in this encounter Care Teams Wastewater Technician Relationship Specialty Start Date End Date Lurdes Thomas MD PCP - General 06/18/14 12/11/19 documented as of this encounter
--- OUTSIDE RECORDS SUMMARY | 2022-01-20 12:48 | XMS_ITS | Encounter Summary ---
:1955 Author Organization [employer] Address [address], [place] [address] Care Team Providers Name Role Phone Lurdes Thomas MD Primary Care Provider Reason for Visit Reason Comments Sleep problems Encounter Details Date Type Department Care Team Description 11/12/2014 Telephone [facility] Doris Arauz, RN Sleep problems [address] [place], [place] [address] Social History Tobacco Use [...] filedocumented in this encounter Care Teams Metal Riveter Relationship Specialty Start Date End Date Lurdes Thomas MD PCP - General 06/18/14 12/11/19 documented as of this encounter
--- OUTSIDE RECORDS SUMMARY | 2022-01-20 12:48 | XMS_ITS | Encounter Summary ---
:1955 [address] [facility] Address [address] [place] [address] Care Team Providers Name Role Phone Lurdes Thomas MD Primary Care Provider Reason for Referral Specialty Diagnoses / Procedures Referred By Contact Refer red To Contact Maria Esther Phan MD [address] [place], [place] [address] Referral ID Status Reason Start Date Expiration Date Visits Requ ested Visits Authorized Reason for Visit Reason Comments Adl Problem Encounter Details Date Type Department Care Team Description 11/04/2014 Initial Consult Darrin Moore-d efined conditions(799.89) (Primary Dx); Occupational Therapy Tylor Bates, OTR/L Paralysis agitans [address] [phone] Social History Tobacco Use Types Packs/Day Years Used Date Smoking Tobacco: Never Smokeless Tobacco: Never Alcohol Use Standard Drinks/Week Comments Yes 0 (1 standard drink = 0.6 oz pure alcoho l) Sex Assigned at Date Recorded Not on file documented as of this encounter Progress Notes Tylor Marr, OTR/L - 11/08/2014 1:51 PM CDT Encounter Date: 11/04/2014 Pt. : 1955 [facility] Occupational Therapy - Evaluation/Plan of Care Initial Certification Period: 11/04/2014 to 01/03/15 Referring Provider: Dr. Maria Esther Phan Referring Diagnosis: Parkinson's Disease Visit Diagnosis/IDC Code: Diagnosis (ICD9) ICD-9-CM ICD-10-CM 1. Other ill-defined conditions(799.89) 799.89 R69 2. Paralysis agitans ([facility]) 332.0 G20 Precautions: recent DBS surgery Orders: [...] bilateral DBS(09/2014). Previous Occupational Therapy: Received at [facility]. Pain: Location: back pain when getting up rom chairs , gettign up from bed, getting in/out of car. Education: High school. 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 Living Environment: Private home, more than 1 level. Living Location: [facility]. Driving: Yes. Community Mobility: Independent community [...] limits. -Right upper extremity: within normal limits. -Playback Operator: Left - 127 lbs=99%; Right -128 lbs.=99% [...] did undergo successful DBS surgery. 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 H e presents to address continuing difficulty [...] Achievement or Learning: Distance from clinic. 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 Prognosis: Excellent for established goals. PLAN Planned [...] exercise program. Procedures: Occupation Therapy Evaluation (CPT 46688): 30 minutes ADL/Self management (CPT 94470): 15 minutes Therapeutic Exercise (CPT 99823): 15 minutes Total Treatment Time: 60 minutes. The senior credit officer is completed by the therapist and the referring clinician's electronic signature certifies medical necessity for the plan above. Tylor Marr OTR/L Lic#[id number] documented in this encounter Plan of Treatment Scheduled Referrals Name Type Priority Associated Diagnoses Order [facility] Occupational Therapy Referral Routine Paralysis agitans (H RC) Ordered: 11/04/2014, Expires: 2014 documented as of this encounter Visit Diagnoses Diagnosis Other ill-defined conditions(799.89) - P rimary Other ill-defined conditions Paralysis agitans (HRC) Paralysis agitans documented in this encounter Care Teams Beef Pusher Relationship Specialty Start Date End Date Lurdes Thomas MD PCP - General 06/18/14 12/11/19 documented as of this encounter
--- OUTSIDE RECORDS SUMMARY | 2022-01-20 12:48 | XMS_ITS | Encounter Summary ---
:1955 Author Organization [employer] Address [address] [place] [address] Care Team Providers Name Role Phone Lurdes Thomas MD Primary Care Provider Reason for Visit Reason Comments Follow-up Back Pain Encounter Details Date Type Department Care Team Description 05/19/2015 Office Visit [facility] Maria Esther Pahn PD (Parkinson's disease) (Pr imary Dx); [address] Dae Amaro MD Right-sided low back pain with right-beck ed sciatica Drive [address] [place], [place] S [address] [place], [place] [phone] (Wo rk) Social History Tobacco Use Types Packs/Day Years Used Date Smoking Tobacco: Never Smokeless Tobacco: Never Alcohol Use Standard Drinks/Week Comments Yes 0 (1 standard drink = 0.6 oz pure alcoho l) Sex Assigned at Date Recorded Not on file documented as of this encounter Last Filed Vital Signs Vital Sign Reading Time Taken Comments Blood Pressure 122/78 05/19/2015 8:29 AM DATA MODELING ARCHITECT Pulse 76 05/19/2015 8:29 AM DATA MODELING ARCHITECT Temperature - - Respiratory Rate - - Oxygen Saturation - - Inhaled Oxygen Concentration - - Weight 90.6 kg (199 lb 12.8 oz) 05/19/2015 8:24 AM DATA MODELING ARCHITECT Height - - Body Mass Index 26.37 07/08/2014 8:56 AM DATA MODELING ARCHITECT documented in this encounter Progress Notes Maria Esther Phan MD - 05/19/2015 8:52 AM CST Dictated MODELING ARCHITECT documented in this encounter Plan of Treatment Not on filedocumented as of this encounter Visit Diagnoses Diagnosis PD (Parkinson's disease) (HRC) - Primary Paralysis agitans Right-sided low back pain with right-beck ed sciatica (HRC) documented in this encounter Care Teams Chemical Dependency Nurse Relationship Specialty Start Date End Date Lurdes Thomas MD PCP - General 06/18/14 12/11/19 documented as of this encounter
--- OUTSIDE RECORDS SUMMARY | 2022-01-20 12:48 | XMS_ITS | Encounter Summary ---
:1955 Author Organization [facility] Address [address], [place] [address] Care Team Providers Name Role Phone Lurdes Thomas MD Primary Care Provider Encounter Details Date Type Department Care Team Description 10/14/2014 Notes/Orders [facility] Shawnee Hilario, Paralysis agitans [address] RN (Primary D x) [place] [address] Social History Tobacco Use Types [...] agitans documented in this encounter Care Teams Carpet Installation Specialist Relationship Specialty Start Date End Date Lurdes Thomas MD PCP - General 06/18/14 12/11/19 documented as of this encounter
--- OUTSIDE RECORDS SUMMARY | 2022-01-20 12:48 | XMS_ITS | Encounter Summary ---
:1955 Author Organization [employer] Address [address] [place] [address] Care Team Providers Name Role Phone Lurdes Thomas MD Primary Care Provider Reason for Visit Reason Comments Questions Encounter Details Date Type Department Care Team Description 11/28/2014 Telephone [facility] Doris Arauz RN Questions [address] [place], [place] [address] Social History Tobacco Use [...] on filedocumented in this encounter Care Teams Mid Level Business Analyst Relationship Specialty Start Date End Date Lurdes Thomas MD PCP - General 06/18/14 12/11/19 documented as of this encounter
--- OUTSIDE RECORDS SUMMARY | 2022-01-20 12:48 | XMS_ITS | Encounter Summary ---
:1955 Author Organization [facility] Address [address] [address] Care Team Providers Name Role Phone Lurdes Thomas MD Primary Care Provider Reason for Visit Reason Comments Forms Encounter Details Date Type Department Care Team Description 11/12/2014 Telephone [facility] Doris Arauz, RN Forms [address] [place], [place] [address] Social History Tobacco Use [...] on filedocumented in this encounter Care Teams Assistant To The Dean Relationship Specialty Start Date End Date Lurdes Thomas MD PCP - General 06/18/14 12/11/19 documented as of this encounter
--- OUTSIDE RECORDS SUMMARY | 2022-01-20 12:48 | XMS_ITS | Encounter Summary ---
:1955 Author Organization [facility] Address [address] [place] [address] Care Team Providers Name Role Phone Lurdes Thomas MD Primary Care Provider Reason for Referral Specialty Diagnoses / Procedures Referred By Contact Refer red To Contact Maria Esther Phan MD [address] [place], [place] [address] Referral ID Status Reason Start Date Expiration Date Visits Requ ested Visits Authorized Reason for Visit Reason Comments Device Check Encounter Details Date Type Department Care Team Description 12/09/2014 Nursing Visit [facility] Doris Arauz, PD (Parkinson's disease) (Pr imary Dx); [address] [place] [address] Social History Tobacco Use Types [...] implantation. Surgeon: Dr. Gonzalez Rowland Surgery date/location: [facility] 09/09/14 Battery replacement: None Device [...] Amp: 2.5, PW: 60, Rate: 150. Pt numerical control tool programmer range: 2.1-2.7 Right SNT: 9 Negative, 10 Positive, Amp: 2.4, PW: 60, Rate: 150. Pt numerical control tool programmer range: 2.0-2.6 Total face to face [...] agitans documented in this encounter Care Teams Lasting Floorworker Relationship Specialty Start Date End Date Lurdes Thomas MD PCP - General 06/18/14 12/11/19 documented as of this encounter
--- OUTSIDE RECORDS SUMMARY | 2022-01-20 12:48 | XMS_ITS | Encounter Summary ---
:1955 Author Organization [email or web address] Address [address], [place] [address] Care Team Providers Name Role Phone Lurdes Thomas MD Primary Care Provider Reason for Visit Reason Comments Social Service Encounter Details Date Type Department Care Team Description 01/20/2015 Telephone [facility] Fabi Quinones LISW Social Service [address] [place], [place] [address] Social History Tobacco Use [...] phone meeting with patient and his . Anderw reports that he has quit his job due to the stress making his symptoms worse. They call today to learn more about applying for Social Security Disability. Andrew's primary struggles have to do with balance issues, freezing, rigidity, anxiety and fatigue. 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 Discussed the process in general and provided [...] on filedocumented in this encounter Care Teams Charge Master Coordinator Relationship Specialty Start Date End Date Lurdes Thomas MD PCP - General 06/18/14 12/11/19 documented as of this encounter
--- OUTSIDE RECORDS SUMMARY | 2022-01-20 12:49 | XMS_ITS | Encounter Summary ---
:1955 Author Organization [facility] Address [address] [place] [address] Care Team Providers Name Role Phone Lurdes Thomas MD Primary Care Provider Reason for Referral Specialty Diagnoses / Procedures Referred By Contact Refer red To Contact Maria Esther Phan MD [address] [place], [place] [address] Referral ID Status Reason Start Date Expiration Date Visits Requ ested Visits Authorized DENT CARE AID Reason for Visit Reason Comments Adl Problem Encounter Details Date Type Department Care Team Description 06/18/2014 Initial Consult Angela Moore (Primary Dx); Occupational Therapy Tylor Bates OTR/L Other ill-defined conditions(799.89) [address] [place] [phone] Social History Tobacco Use Types Packs/Day Years Used Date Smoking Tobacco: Never Smokeless Tobacco: Never Alcohol Use Standard Drinks/Week Comments Yes 0 (1 standard drink = 0.6 oz pure alcoho l) Sex Assigned at Date Recorded Not on file documented as of this encounter Progress Notes Tylor Marr OTR/Stefan - 06/18/2014 4:45 PM CST Encounter Date: 06/18/2014 Pt. : 1955 [facility] Occupational Therapy - Evaluation/Plan of Care [...] program. Completion of Pre DBS assessment and medical reception specialist of recommendations. Past Medical History: Past medical history, medication, and allergies were reviewed in the electronic medical record. Pertinent to therapy: Restless leg syndrome. . Previous Occupational Therapy: Unknown. Pain: Location: Back pain in morning. Education: High school. 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 Living Location: [facility]. Driving: Yes. Community Mobility: Assistive device - [...] limits. -Right upper extremity: within normal limits. -Cardiology Technologist: Left - 99 lbs =75%; Right - [...] equipment for increased handwriting legibility using: Wide donor services specialist pen. Aim big. Write slower. Response [...] or Learning: Distance from clinic. 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 Prognosis: Excellent for established goals. PLAN: Evaluation [...] exercise program. Procedures: Occupation Therapy Evaluation (CPT 12132): 30 minutes ADL/Self management (CPT 37895): 30 minutes Total Treatment Time: 60 minutes. The ticket machine operator is completed by the therapist and the referring clinician's electronic signature certifies medical necessity for the plan above. Tylor Marr OTR/L Lic#[id number] documented in this encounter Plan of Treatment Scheduled Referrals Name Type Priority Associated Diagnoses Order S [facility] Occupational Therapy Referral Routine Paralysis agitans (H RC) Ordered: 06/20/2014, Expires: 2014 documented as of this encounter Visit Diagnoses Diagnosis Paralysis agitans (HRC) - Primary Paralysis agitans Other ill-defined conditions(799.89) Other ill-defined conditions documented in this encounter Care Teams Passenger Service Representative Relationship Specialty Start Date End Date Lurdes Thomas MD PCP - General 06/18/14 12/11/19 documented as of this encounter
--- OUTSIDE RECORDS SUMMARY | 2022-01-20 12:49 | XMS_ITS | Encounter Summary ---
:1955 Author Organization [employer] Address [address], [place] [address] Care Team Providers Name Role Phone Lurdes Thomas MD Primary Care Provider Reason for Visit Reason Comments Post-Op Follow Up Call Encounter Details Date Type Department Care Team Description 09/23/2014 Telephone [facility] Shawnee Hilario RN Post-Op Follow Up Call [address] [place] [phone] Social History Tobacco Use Types Packs/Day [...] on filedocumented in this encounter Care Teams Coal Digger Relationship Specialty Start Date End Date Lurdes Thomas MD PCP - General 06/18/14 12/11/19 documented as of this encounter
--- OUTSIDE RECORDS SUMMARY | 2022-01-20 12:49 | XMS_ITS | Encounter Summary ---
:1955 Author Organization [employer] Address [address], [place] [address] Care Team Providers Name Role Phone Lurdes Thomas MD Primary Care Provider Reason for Visit Reason Comments Follow-up Encounter Details Date Type Department Care Team Description 07/08/2014 Office Visit [facility] Parashos, Sotirios Paralysis agitans [address] A, MD (Primary Dx) Drive [address] [facility] [address] [place], [place] [phone] (Wo rk) Social History Tobacco Use Types Packs/Day Years Used Date Smoking Tobacco: Never Smokeless Tobacco: Never Alcohol Use Standard Drinks/Week Comments Yes 0 (1 standard drink = 0.6 oz pure alcoho l) Sex Assigned at Date Recorded Not on file documented as of this encounter Last Filed Vital Signs Vital Sign Reading Time Taken Comments Blood Pressure 138/78 07/08/2014 9:00 AM CIVIL DIVISION COMMANDER DEPUTY SHERIFF Pulse 84 07/08/2014 9:00 AM CIVIL DIVISION COMMANDER DEPUTY SHERIFF Temperature - - Respiratory Rate - - Oxygen Saturation - - Inhaled Oxygen Concentration - - Weight 98.5 kg (217 lb 3.2 oz) 07/08/2014 8:56 AM CIVIL DIVISION COMMANDER DEPUTY SHERIFF Height 185.4 cm (6' 0.99) 07/08/2014 8:56 AM CIVIL DIVISION COMMANDER DEPUTY SHERIFF Body Mass Index 28.66 07/08/2014 8:56 AM CIVIL DIVISION COMMANDER DEPUTY SHERIFF documented in this encounter Patient Instructions Patient Doris Awad RN - 07/08/2014 8:56 AM CST Thank you for enrolling in [email or web address]. Please follow the instructions below to securely access your online medical record. [email or web address] allows you to send messages to your doctor, view your test results, renewyour prescriptions, schedule appointments, and more. How Do I Sign Up? 1. In your Internet browser, go to: [email or web address] 2. Click on the Enter Activation Code link under the New User? section. You will see the New Member Sign Up page. 3. Enter your [email or web address] Activation Code exactly as it appears below. You will not need to use this code after you???ve completed the sign-up process. If you do not sign up before the expiration date, youmust request a new code. [email or web address] Activation Code: [email or web address] Expires: 08/07/2014 8:56 AM 4. Enter your Date of (mm/dd/yyyy), Home Phone Number and Zip Code as indicated, then click Next. You will be taken to the next sign-up page 5. Create a [email or web address] ID. This will be your [email or web address] login ID and cannot be changed, so think of one that is secure and easy to remember. 6. Create a [email or web address] password. You can change your password at any time. 7. Enter your Security Question and Answer. This can be used at a later time if you forget your password. Click Next. 8. Enter your e-mail address. You will receive e-mail notification when new information is availablein [email or web address]. 9. Click Sign In. You can now view your medical record. Additional Information If you have questions, you can call [phone] to talk to our [email or web address] staff. Remember, [email or web address] is NOT to be used for urgent needs. For medical emergencies, dial 911. L DIVISION COMMANDER DEPUTY SHERIFF documented in this encounter Progress Notes Maria Esther Phan MD - 07/08/2014 9:59 AM CST Dictated L DIVISION COMMANDER DEPUTY SHERIFF documented in this encounter Plan of Treatment Not on filedocumented as of this encounter Visit Diagnoses Diagnosis Paralysis agitans (HRC) - Primary Paralysis agitans documented in this encounter Care Teams Well Treatment Offsider Relationship Specialty Start Date End Date Lurdes Thomas MD PCP - General 06/18/14 12/11/19 documented as of this encounter
--- OUTSIDE RECORDS SUMMARY | 2022-01-20 12:49 | XMS_ITS | Encounter Summary ---
:1955 Author Organization [facility] Address [address], [place] [address] Care Team Providers Name Role Phone Lurdes Thomas MD Primary Care Provider Encounter Details Date Type Department Care Team Description 06/18/2014 Notes/Orders [facility] Doris Arauz, Paralysis agitans [address] RN (Primary D x) [place] [address] Social History Tobacco Use Types [...] had . Older the 90 days. Thanks. EMIC INTERVENTIONIST documented in this encounter Plan of Treatment Not on filedocumented as of this encounter Visit Diagnoses Diagnosis Paralysis agitans (HRC) - Primary Paralysis agitans documented in this encounter Care Teams Tomato Paste Maker Relationship Specialty Start Date End Date Lurdes Thomas MD PCP - General 06/18/14 12/11/19 documented as of this encounter
--- OUTSIDE RECORDS SUMMARY | 2022-01-20 12:49 | XMS_ITS | Encounter Summary ---
:1955 Author Organization [facility] Address [address], [place] [address] Care Team Providers Name Role Phone No Primary/Referring, Phmyah Primary Care Provider Unavailable Encounter Details Date Type Department Care Team Description 01/30/2014 Orders Only [facility] Kiara Cristina, Vitamin D deficiency [address] Ross MD (Primary Dx) [place] [phone] [address] [phone] [place] [address] (Wo rk) Social History Tobacco Use [...] deficiency documented in this encounter Care Teams Video Clerk Relationship Specialty Start Date End Date No Primary/Referring, Lilliana PCP - General 01/22/14 documented as of this encounter
--- OUTSIDE RECORDS SUMMARY | 2022-01-20 12:49 | XMS_ITS | Encounter Summary ---
:1955 Author Organization [facility] Address [address] [place] [address] Care Team Providers Name Role Phone No Primary/Referring, Phy Primary Care Provider Unavailable Reason for Visit Reason Comments Appt. Scheduled Encounter Details Date Type Department Care Team Description 05/20/2014 Telephone [place] Sheri Pearson RN Appt. Scheduled [address] [place], [place] [address] Social History Tobacco Use [...] scheduled for on Monday. It is at [facility] at the [place] location. ARTIST documented in this encounter Plan of Treatment Not on filedocumented as of this encounter Visit Diagnoses Not on filedocumented in this encounter Care Teams Phthalic Acid Purifier Relationship Specialty Start Date End Date No Primary/Referring, Lupilloy PCP - General 01/22/14 documented as of this encounter
--- OUTSIDE RECORDS SUMMARY | 2022-01-20 12:49 | XMS_ITS | Encounter Summary ---
:1955 Author Organization [facility] Address [address], [place] [address] Care Team Providers Name Role Phone Lurdes Thomas MD Primary Care Provider Reason for Visit Reason Comments Questions Encounter Details Date Type Department Care Team Description 07/09/2014 Telephone [facility] Sheri Pearson, RN Questions [address] [place], [place] [address] Social History Tobacco Use Types Packs/Day Years Used Date Smoking Tobacco: Never Smokeless Tobacco: Never Alcohol Use Standard Drinks/Week Comments Yes 0 (1 standard drink = 0.6 oz pure alcoho l) Sex Assigned at Date Recorded Not on file documented as of this encounter Nursing Notes Sheri Pearson RN - 07/09/2014 1:11 PM CST I spoke with Andrwe and he was wondering when he would hear from Dr Rowland's office about scheduling his surgery. I told him that paperwork was faxed to them yesterday and it takes them about a week before he will hear from them to schedule. EXAMINER documented in this encounter Plan of Treatment Not on filedocumented as of this encounter Visit Diagnoses Not on filedocumented in this encounter Care Teams Cement Car Dumper Relationship Specialty Start Date End Date Lurdes Thomas MD PCP - General 06/18/14 12/11/19 documented as of this encounter
--- OUTSIDE RECORDS SUMMARY | 2022-01-20 12:49 | XMS_ITS | Encounter Summary ---
:1955 Author Organization [employer] Address [address] [place] [address] Care Team Providers Name Role Phone Lurdes Thomas MD Primary Care Provider Reason for Visit Reason Comments Follow-up Encounter Details Date Type Department Care Team Description 10/07/2014 Office Visit [facility] Parashos, Sotirios Paralysis agitans [address] A, MD (Primary Dx) Drive [address] [facility] [address] [place], [place] [phone] (Wo rk) Social History Tobacco Use Types [...] Body Mass Index 27.18 07/08/2014 8:56 AM BANKRUPTCY PROCESSOR documented in this encounter Patient Instructions Patient [...] day. 2. I will have our social science research assistant, Fabi Beverly contact you and your as [...] agitans documented in this encounter Care Teams Lawyer Relationship Specialty Start Date End Date Lurdes Thomas MD PCP - General 06/18/14 12/11/19 documented as of this encounter
--- OUTSIDE RECORDS SUMMARY | 2022-01-20 12:49 | XMS_ITS | Encounter Summary ---
:1955 Author Organization [employer] Address [address] [place] [address] Care Team Providers Name Role Phone Lurdes Thomas MD Primary Care Provider Reason for Referral Specialty Diagnoses / Procedures Referred By Contact Refer red To Contact Maria Esther Phan MD [address] [place], [place] [address] Referral ID Status Reason Start Date Expiration Date Visits Requ ested Visits Authorized YARD DERRICK OPERATOR Reason for Visit Reason Comments VOICE, LOSS OF Encounter Details Date Type Department Care Team Description 06/18/2014 Initial Consult Saline Paige Quesada inson's disease (Primary Dx); Therapy M, FISH PROCESSING SUPERVISOR Dysphonia; [address] Remember The Member [place] [address] [id number] Social History Tobacco Use Types Packs/Day Years Used Date Smoking Tobacco: Never Smokeless Tobacco: Never Alcohol Use Standard Drinks/Week Comments Yes 0 (1 standard drink = 0.6 oz pure alcoho l) Sex Assigned at Date Recorded Not on file documented as of this encounter Progress Notes Paige Garcia, FISH PROCESSING SUPERVISOR - 06/18/2014 5:17 PM CST Encounter Date: 06/18/2014 Patient : 1955 Speech Therapy - Parkinson's Disease Evaluation and Plan of Care [facility] Multidisciplinary Assessment Clinic Outpatient [...] Any liquids. Previous Speech Therapy: Received at [facility] [place]. Evaluation only 08/23/2007. Hand Dominance: Right Hearing Acuity: Within Functional Limits. Glasses: No. Education: High school. 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 Marital Status: . Living Environment: Lives with [...] Recommendations: Brief course of individual speech therapy. Paint Striping Machine Operator Speech Goal: Client will be able to be understood without repetition 80% of the time in their daily environment as measured by patient report. Paint Striping Machine Operator Swallowing Goal: -None Paint Striping Machine Operator Memory/Cognition Goal: None. Short Term Goals: -Independent in speech/voice home program. -Client will improve respiratory support for speech and voice to provide a basis for intelligible speech. -Client will increase articulation accuracy for improved speech intelligibility. -Client will decrease speech rate for improved intelligibility. Goals Achieved Today at [facility] [place]: -Client and/or family verbalized comprehension of today's [...] family in agreement with care plan. The outside deliverer is completed by the therapist, and the referring clinician's electronic signature certifies medical necessity for the plan above. documented in this encounter Plan of Treatment Scheduled Referrals Name Type Priority Associated Diagnoses Order S [facility] Speech Therapy Referral Routine Paralysis agitans (HRC) Or dered: 06/20/2014, Expires: 2014 documented as of this encounter Visit Diagnoses Diagnosis Parkinson's disease (HRC) - Primary Dysphonia Paralysis agitans (HRC) Paralysis agitans documented in this encounter Care Teams Kiss Machine Operator Relationship Specialty Start Date End Date Lurdes Thomas MD PCP - General 06/18/14 12/11/19 documented as of this encounter
--- OUTSIDE RECORDS SUMMARY | 2022-01-20 12:49 | XMS_ITS | Encounter Summary ---
:1955 Author Organization [facility] Address [address] [place] [address] Care Team Providers Name Role Phone Lurdes Thomas MD Primary Care Provider Reason for Referral Specialty Diagnoses / Procedures Referred By Contact Refer red To Contact Maria Esther Phan MD [address] [place], [place] [address] Referral ID Status Reason Start Date Expiration Date Visits Requ ested Visits Authorized Reason for Visit Reason Comments Device Check Encounter Details Date Type Department Care Team Description 10/07/2014 Nursing Visit [facility] Shawnee Hilario, RN [place] [address] arriaga [place], [place] [address] Social History Tobacco Use [...] Dr. Gonzalez [place] Surgery date/location: September 09 [facility] Device type: Activa PC Indication:Parkinsons Update [...] 150 therapy impedence 1159 current 1.816 Patient Pipe Processor Range: Left 2.1-2.7 Right 1.7-2.5. Total face [...] agitans documented in this encounter Care Teams Wheel Alignment Mechanic Relationship Specialty Start Date End Date Lurdes Thomas MD PCP - General 06/18/14 12/11/19 documented as of this encounter
--- OUTSIDE RECORDS SUMMARY | 2022-01-20 12:49 | XMS_ITS | Encounter Summary ---
:1955 Author Organization [employer] Address [address] [address] Care Team Providers Name Role Phone Lurdes Thomas MD Primary Care Provider Encounter Details Date Type Department Care Team Description 09/23/2014 Notes/Orders [facility] Jordana Ham, PT [address] [address] [place] [address] [place] [address] [phone] (Wo rk) Social History Tobacco Use Types Packs/Day Years Used Date Smoking Tobacco: Never Smokeless Tobacco: Never Alcohol Use Standard Drinks/Week Comments Yes 0 (1 standard drink = 0.6 oz pure alcoho l) Sex Assigned at Date Recorded Not on file documented as of this encounter Discharge Summaries Jordana Ham, PT - 09/23/2014 8:52 AM CDT Encounter Date: 09/23/2014 Pt : 1955 [facility] Physical Therapy Discharge Summary Patient was [...] on filedocumented in this encounter Care Teams Fitness Floor Attendant Relationship Specialty Start Date End Date Lurdes Thomas MD PCP - General 06/18/14 12/11/19 documented as of this encounter
--- OUTSIDE RECORDS SUMMARY | 2022-01-20 12:49 | XMS_ITS | Encounter Summary ---
:1955 Author Organization [facility] Address [address] [address] Care Team Providers Name Role Phone Lurdes Thomas MD Primary Care Provider Encounter Details Date Type Department Care Team Description 08/20/2014 Notes/Orders [facility] Millie Pedraza MD [address] [place], [place] [address] [address]500 [facility] N [id number] (Wo rk) Social History Tobacco Use Types [...] on filedocumented in this encounter Care Teams Trim Line Worker Relationship Specialty Start Date End Date Lurdes Thomas MD PCP - General 06/18/14 12/11/19 documented as of this encounter
--- OUTSIDE RECORDS SUMMARY | 2022-01-20 12:49 | XMS_ITS | Encounter Summary ---
:1955 Author Organization [employer] Address [address] [address] Care Team Providers Name Role Phone No Primary/Referring, Phy Primary Care Provider Unavailable Reason for Visit Reason Comments Questions Encounter Details Date Type Department Care Team Description 05/05/2014 Telephone [facility] Fabi Ray, RN Questions [address] corina [place], [place] [address] Social History Tobacco Use [...] Phan. He sees Dr. Phan now in [place] due to copay. Explained that best if results appointment can be at [facility] he can meet with the DBS nurse after. Also explained will need to see the DBS nurse at [facility] post DBS if approved for surgery. Good comprehension of plan. Transferred to front line to set up results appointment with Dr. Phan and to review pre-DBS appointments. Post-note: Confirmed with front line that 05/26/13 appt is for MRI and neuropsych with Dr. Ramirez. GER CARD documented in this encounter Plan of Treatment Not on filedocumented as of this encounter Visit Diagnoses Not on filedocumented in this encounter Care Teams Chief Operating Engineer Relationship Specialty Start Date End Date No Primary/Referring, Phy PCP - General 01/22/14 documented as of this encounter
--- OUTSIDE RECORDS SUMMARY | 2022-01-20 12:49 | XMS_ITS | Encounter Summary ---
:1955 Author Organization [facility] Address [address], [place] [address] Care Team Providers Name Role Phone No Primary/Referring, Phy Primary Care Provider Unavailable Reason for Visit Reason Comments Patient Calling Back Encounter Details Date Type Department Care Team Description 04/15/2014 Telephone [facility] Shawnee Hilario, RN Patient Calling Back [address] corina Lamas [place], [place] [address] Social History Tobacco Use [...] TAC. States he spoke with Doris at [facility] and has an appointment set up 05/26/14. Do not see this appointment in our system at [facility]. Transferred him to [facility]. Shawnee Hilario RN - 04/15/2014 4:22 PM CST Patient left a message on the DBS nurse line stating he was returning a call about scheduling DBS. We had called him a month or so ago to tell him about our process and our understanding was he wanted to wait until After May because of insurance reasons. It may have been the front office agent calling himto schedule. Left him a message asking him to speak to Gricelda. RAFT ELECTRICIAN documented in this encounter Plan of Treatment Not on filedocumented as of this encounter Visit Diagnoses Not on filedocumented in this encounter Care Teams Project Management Engineer Relationship Specialty Start Date End Date No Primary/Referring, Phy PCP - General 01/22/14 documented as of this encounter
--- OUTSIDE RECORDS SUMMARY | 2022-01-20 12:49 | XMS_ITS | Encounter Summary ---
:1955 Author Organization [facility] Address [address], [place] [address] Care Team Providers Name Role Phone Lurdes Thomas MD Primary Care Provider Encounter Details Date Type Department Care Team Description 10/06/2014 Notes/Orders [facility] Shawnee Hilario, Paralysis agitans [address] RN (Primary D x) [place] [address] Social History Tobacco Use Types [...] agitans documented in this encounter Care Teams Irrigator Relationship Specialty Start Date End Date Lurdes Thomas MD PCP - General 06/18/14 12/11/19 documented as of this encounter
--- OUTSIDE RECORDS SUMMARY | 2022-01-20 12:49 | XMS_ITS | Encounter Summary ---
:1955 Author Organization [employer] Address [address] [place] [address] Care Team Providers Name Role Phone Lurdes Thomas MD Primary Care Provider Reason for Referral Specialty Diagnoses / Procedures Referred By Contact Refer red To Contact Maria Esther Phan MD [address] [place], [place] [address] Referral ID Status Reason Start Date Expiration Date Visits Requ ested Visits Authorized R BRAKE OPERATOR Reason for Visit Reason Comments CONSULT Encounter Details Date Type Department Care Team Description 06/18/2014 Nursing Visit [facility] Doris Arauz, PD (Parkinson's disease) (Pr imary Dx); [address] [place], [place] [address] Social History Tobacco Use Types Packs/Day Years Used Date Smoking Tobacco: Never Smokeless Tobacco: Never Alcohol Use Standard Drinks/Week Comments Yes 0 (1 standard drink = 0.6 oz pure alcoho l) Sex Assigned at Date Recorded Not on file documented as of this encounter Progress Notes Doris Arauz RN - 06/18/2014 5:16 PM CST Andrew came to [place] for DBS TAC with his . States [...] CR: 900mg MoCA: Midi: 0 Vargas: 15 R BRAKE OPERATOR documented in this encounter Plan of Treatment Scheduled Referrals Name Type Priority Associated Diagnoses Order S angélica [facility] Referral Routine Paralysis agitans (HRC) Ordered: 06/20/2014, CONSULT (AMB) Expires: 06/20 documented as of this encounter Visit Diagnoses Diagnosis PD (Parkinson's disease) (HRC) - Primary Paralysis agitans Paralysis agitans (HRC) Paralysis agitans documented in this encounter Care Teams Digital Marketing Assistant Relationship Specialty Start Date End Date Lurdes Thomas MD PCP - General 06/18/14 12/11/19 documented as of this encounter
--- OUTSIDE RECORDS SUMMARY | 2022-01-20 12:49 | XMS_ITS | Encounter Summary ---
:1955 Author Organization [employer] [facility] Address [address] [address] Care Team Providers Name Role Phone Lurdes Thomas MD Primary Care Provider Encounter Details Date Type Department Care Team Description 07/23/2014 Notes/Orders [facility] Millie Pedraza MD [address] [place], [place] [address] [address] [facility] N [id number] (Wo rk) Social History Tobacco Use Types [...] surgery, as he was getting some benefits. S AGENT FIRE INSURANCE documented in this encounter Plan of Treatment Not on filedocumented as of this encounter Visit Diagnoses Not on filedocumented in this encounter Care Teams Pipe Threader Relationship Specialty Start Date End Date Lurdes Thomas MD PCP - General 06/18/14 12/11/19 documented as of this encounter
--- OUTSIDE RECORDS SUMMARY | 2022-01-20 12:49 | XMS_ITS | Encounter Summary ---
:1955 Author Organization [employer] Address [address], [place] [address] Care Team Providers Name Role Phone Lurdes Thomas MD Primary Care Provider Encounter Details Date Type Department Care Team Description 06/18/2014 Initial Consult Usha Mcpherson Para lysis agitans Services (Primary Dx) [address] [place] [address] Social History Tobacco Use Types [...] Living Environment Lives with . Living Location: [place], [place] Leisure Activities: Not discussed during session. [...] agitans documented in this encounter Care Teams Decorating Machine Operator Relationship Specialty Start Date End Date Lurdes Thomas MD PCP - General 06/18/14 12/11/19 documented as of this encounter
--- OUTSIDE RECORDS SUMMARY | 2022-01-20 12:49 | XMS_ITS | Encounter Summary ---
:1955 Author Organization [employer] Address [address] [place] [address] Care Team Providers Name Role Phone Lurdes Thomas MD Primary Care Provider Reason for Visit Reason Comments Paperwork Encounter Details Date Type Department Care Team Description 09/15/2014 Telephone [facility] Doris Arauz, RN Paperwork [address] [place], [place] [address] Social History Tobacco Use Types [...] CDT Doris from Dr. Phan office at [facility] called to request ON/OFF [...] on filedocumented in this encounter Care Teams Master Ocean Relationship Specialty Start Date End Date Lurdes Thomas MD PCP - General 06/18/14 12/11/19 documented as of this encounter
--- OUTSIDE RECORDS SUMMARY | 2022-01-20 12:49 | XMS_ITS | Encounter Summary ---
:1955 Author Organization [facility] Address [address], [place] [address] Care Team Providers Name Role Phone Unavailable Primary Care Provider Unavailable Encounter Details Date Type Department Care Team Description 11/19/2012 Notes/Orders [facility] Katalina Laughlin, PT [address] [address] [place] [address] [place], [place] [phone] (Wo rk) Social History Tobacco Use Types Packs/Day Years Used Date Smoking Tobacco: Never Assessed Sex Assigned at Date Recorded Not on file documented as of this encounter Progress Notes Katalina Laughlin, PT - 11/19/2012 9:58 AM CDT No show for scheduled PT consult appointment this morning. Katalina Laughlin PT, [facility] License # [id number] documented in this encounter Plan of Treatment Not on filedocumented as of this encounter Visit Diagnoses Not on filedocumented in this encounter
--- OUTSIDE RECORDS SUMMARY | 2022-01-20 12:49 | XMS_ITS | Encounter Summary ---
:1955 Author Organization [employer] Address [address] [place] [address] Care Team Providers Name Role Phone No Primary/Referring, Phy Primary Care Provider Unavailable Reason for Visit Reason Comments Establish Care MEDICATION CHECK Encounter Details Date Type Department Care Team Description 01/28/2014 Office Visit Kiara Zepeda Hyperlipide cierra (Primary Dx); Rober Aviles MD Parkinson's disease; [address] [facility] [address] [place] [address] Screening for diabetes mellitus; [place] [address] [place] [address] Screening for prostate cancer; [phone] Special screeni ng for malignant neoplasms, colon; [...] go directly to the clinic???s lab to last picker your test kit. There will be specific [...] COLLECTION KIT PREP (01/28/2014 9:30 AM CDT) [facility] gist Method Time Signature FIT Kit Prep Collection Kit [facility] Given to LABORATORIES Patient Specimen Anatomical Collection Method Collection Time Receive d Time (Source) Location / / Volume Laterality 01/28/2014 9:30 AM 4 9:31 CDT AM CDT Narrative [facility] - 02/04/2014 8:08 AM C DT Performed at [facility] Laboratory, [facility], [place] [address] Kiara Cristina MD LAB_1 Performing Organization Address City/State/ZIP Code Phon e Number [facility] [phone] PROSTATIC SPECIFIC ANTIGEN(SCREEN) (V76.44) (01/28/2014 9:30 AM CDT) P athologist Signature Prostatic Spec 0.97 0.00 - [facility] Ag 4.00 ng/ml LABORATORIES Specimen Anatomical Collection Method Collection Time Receive d Time (Source) Location / / Volume Laterality 01/28/2014 9:30 AM 4 9:31 CDT AM CDT Narrative [facility] - 01/28/2014 7:22 PM C DT Performed at [facility], [address] [place] [id number] Kiara Cristina MD LAB_1 Performing Organization Address City/[facility]/ZIP Code Phon e Number [facility] [phone] (ABNORMAL) VITAMIN D 25-HYDROXY, TOTAL (V77.99) (01/28/2014 9:30 AM CDT) [facility] gist Method Time Signature Vitamin 14.8 (L) [...] 01/28/2014 9:27 PM C DT Performed at [facility] , [address] [place] [address] Kiara Cristina MD LAB_1 Performing Organization Address City/State/ZIP Code Phon e Number [facility] [phone] LIVER PANEL(HEPATIC FUNCTION PANEL) (01/28/2014 9:30 AM CDT) [facility] Method Time Signature Alkaline 89 38 - [...] 01/28/2014 7:22 PM C DT Performed at [facility], [address] [place] [address] ??[id number] Kiara Cristina MD LAB_1 Performing Organization Address City/[facility] Phon e Number [facility] [phone] HGB A1C (01/28/2014 9:30 AM CDT) athologist Signature Hgb A1c 5.9 4.3 - 6.1 % [facility] Specimen Anatomical Collection Method Collection Time Receive d Time (Source) Location / / Volume Laterality 01/28/2014 9:30 AM 4 9:31 CDT AM CDT Narrative [facility] - 01/29/2014 9:55 AM C DT Performed at [facility], [address] [place] [id number] Kiara Cristina MD LAB_1 Performing Organization Address City/[facility] Phon e Number [facility] [phone] (ABNORMAL) LIPID PANEL AND DIRECT LDL(IF NEEDED) (01/28/2014 9:30 AM CDT) Component Value Ref Test Analysis Performed At [facility] Range Method Time Signature Hours Fasting Information [...] 01/28/2014 7:22 PM C DT Performed at [facility], [address] [place] [address] ??[id number] Kiara Cristina MD LAB_1 Performing Organization Address City/State/ZIP Code Phon e Number [facility] [phone] documented in this encounter Visit Diagnoses Diagnosis Hyperlipidemia (HRC) - Primary Other and unspecified hyperlipidemia Parkinson's disease (HRC) Screening for diabetes mellitus Screening for prostate cancer Special screening for malignant neoplasm of prostate Special screening for malignant neoplasm s, colon Preventative health care Routine general medical examination at a health care facility documented in this encounter Care Teams Medical Physics Teacher Relationship Specialty Start Date End Date No Primary/Referring, Phy PCP - General 01/22/14 documented as of this encounter
--- OUTSIDE RECORDS SUMMARY | 2022-01-20 12:49 | XMS_ITS | Encounter Summary ---
:1955 Author Organization [employer] Address [address], [place] [address] Care Team Providers Name Role Phone Lurdes Thomas MD Primary Care Provider Reason for Visit Reason Comments Other Encounter Details Date Type Department Care Team Description 07/08/2014 Nursing Visit [facility] Doris Arauz, PD (Parkinson's [address] RN disease) ( Primary Dx) [place] [address] Social History Tobacco Use Types [...] Dr. Kp Phan. MD Doris Arauz, RN ER ENGINEER documented in this encounter Plan of Treatment Not on filedocumented as of this encounter Visit Diagnoses Diagnosis PD (Parkinson's disease) (HRC) - Primary Paralysis agitans documented in this encounter Care Teams Professor Of Kinesiology Relationship Specialty Start Date End Date Lurdes Thomas MD PCP - General 06/18/14 12/11/19 documented as of this encounter
--- OUTSIDE RECORDS SUMMARY | 2022-01-20 12:49 | XMS_ITS | Encounter Summary ---
:1955 Author Organization [facility] Address [address], [place] [address] Care Team Providers Name Role Phone No Primary/Referring, Phy Primary Care Provider Unavailable Reason for Visit Reason Comments Questions Encounter Details Date Type Department Care Team Description 06/06/2014 Telephone [facility] Doris Arauz, RN Questions [address] Lam[place], [place] [address] Social History Tobacco Use [...] Andrew called asking for number of [employer] Mine Superintendent. Emailed our reps and Lyric stated it was okay to give him her number: [phone] Called Andrew and gave him her number. PHERE COMMERCE DEVELOPER documented in this encounter Plan of Treatment Not on filedocumented as of this encounter Visit Diagnoses Not on filedocumented in this encounter Care Teams Grinder Set Up Operator Centerless Relationship Specialty Start Date End Date No Primary/Referring, Lupilloy PCP - General 01/22/14 documented as of this encounter
--- OUTSIDE RECORDS SUMMARY | 2022-01-20 12:49 | XMS_ITS | Encounter Summary ---
:1955 Author Organization [employer] Address [address], [place] [address] Care Team Providers Name Role Phone Lurdes Thomas MD Primary Care Provider Encounter Details Date Type Department Care Team Description 06/25/2014 Notes/Orders [place] [facility] Millie Pedraza MD [address] [place], [place] [address] [address] [facility] N [address] (Wo rk) Social History Tobacco Use Types [...] Phan will meet with him on 07/08/14/ OF DRAMA documented in this encounter Plan of Treatment Not on filedocumented as of this encounter Visit Diagnoses Not on filedocumented in this encounter Care Teams Environmental Emergencies Assistant Relationship Specialty Start Date End Date Lurdes Thomas MD PCP - General 06/18/14 12/11/19 documented as of this encounter
--- OUTSIDE RECORDS SUMMARY | 2022-01-20 12:49 | XMS_ITS | Encounter Summary ---
:1955 Author Organization [employer] Address [address], [place] [address] Care Team Providers Name Role Phone Lurdes Thomas MD Primary Care Provider Reason for Referral Specialty Diagnoses / Procedures Referred By Contact Refer red To Contact Maria Esther Phan MD [address] [place], [place] [address] Referral ID Status Reason Start Date Expiration Date Visits Requ ested Visits Authorized AURANT WORKER Reason for Visit Reason Comments Balance/gait Dysfunction Encounter Details Date Type Department Care Team Description 06/18/2014 Initial Consult [facility] Jordana Ham (Primary Dx); Therapy M, PT Abnormality of gait; [address] [place] [address] [id number] Social History Tobacco Use Types Packs/Day Years [...] 1955 Physical Therapy Parkinson Evaluation/Plan of Care [facility] Initial Certification Period: 06/18/2014 to 09/16/14 Referring Provider: Dr. Maria Esther Phan Visit Diagnosis/ICD: Diagnosis (ICD9) ICD-9-CM 1. Paralysis agitans (HCC) 332.0 2. Abnormality of gait 781.2 3. Risk for falls V15.88 Precautions: No precautions Onset/Referral Date: 06/18/2014 Reason for Referral: -Pre-Deep Brain Stimulation (Physical Therapist, Occupational Therapist, Speech and Language Pathologist, Circular Distributor, Registered Nurse). Orders: Evaluate and treat. [place] [facility] [place] Services: None. Exacerbation Date: 05/22/2014 Last Referring [...] to residence: Stairs to enter. -Living location: [facility]. -Living environment: Urban-mostly paved areas [...] in winter. Communication: Clear. Low volume. 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 Currently working [...] a distance away from clinic and works multimedia production assistant, but is agreeable to come back for [...] 90 days. Total Treatment: 60 minutes The senior product consultant is completed by the therapist and the [...] Name Type Priority Associated Diagnoses Order S [facility] Physical Therapy Referral Routine Paralysis agitans (HRC) Ordered: 06/20/2014, Expires: 2014 documented as of this encounter Visit Diagnoses Diagnosis Paralysis agitans (HRC) - Primary Paralysis agitans Abnormality of gait Risk for falls Personal history of fall documented in this encounter Care Teams Clinical Quality Analyst Relationship Specialty Start Date End Date Lurdes Thomas MD PCP - General 06/18/14 12/11/19 documented as of this encounter
--- OUTSIDE RECORDS SUMMARY | 2022-01-20 12:49 | XMS_ITS | Encounter Summary ---
:1955 Author Organization [facility] Address [address] [place] [address] Care Team Providers Name Role Phone Lurdes Thomas MD Primary Care Provider Encounter Details Date Type Department Care Team Description 09/25/2014 Notes/Orders [facility] Millie Pedraza MD [address] [place], [place] [address] [address] [facility] N [address]876 (Wo rk) Social History Tobacco Use Types [...] on filedocumented in this encounter Care Teams Mesh Cutter Relationship Specialty Start Date End Date Lurdes Thomas MD PCP - General 06/18/14 12/11/19 documented as of this encounter
--- OUTSIDE RECORDS SUMMARY | 2022-01-20 12:49 | XMS_ITS | Encounter Summary ---
:1955 Author Organization [facility] Address [address] [address] Care Team Providers Name Role Phone Lurdes Thomas MD Primary Care Provider Encounter Details Date Type Department Care Team Description 09/17/2014 Notes/Orders [place] [facility] The Paige Clifford, RED HAT ENGINEER [address] [place], [place] [address] [place] [address] (Wo rk) Social History Tobacco [...] on filedocumented in this encounter Care Teams Segmental Wall Installer Relationship Specialty Start Date End Date Lurdes Thomas MD PCP - General 06/18/14 12/11/19 documented as of this encounter
--- OUTSIDE RECORDS SUMMARY | 2022-01-20 12:49 | XMS_ITS | Encounter Summary ---
:1955 Author Organization [employer] Address [address] [place] [address] Care Team Providers Name Role Phone Lurdes Thomas MD Primary Care Provider Reason for Referral Specialty Diagnoses / Procedures Referred By Contact Refer red To Contact Maria Esther Phan MD [address] [place], [place] [address] Referral ID Status Reason Start Date Expiration Date Visits Requ ested Visits Authorized OR RADIATION PROTECTION TECHNICIAN Reason for Visit Reason Comments Social Service Encounter Details Date Type Department Care Team Description 06/18/2014 Initial Consult [facility] Fabi Beverly Paralys is [facility] Services ELECTRICAL ASSEMBLIES SUPERVISOR [address] corina Lamas [place], [place] [address] Social History Tobacco Use [...] Deep Brain Stimulation (DBS) Assessment at the [facility]. Assessment: Current Social Situation Pt and his live in their home in [place]. The pt does have any children, but his has two. The pt is close to his step-daughter and her family. 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 He has been open about his diagnosis [...] have time to discuss during this session. Aircraft Engineer provided contact information and explained availability to answer any further questions or concerns. Session was 50 minutes long. OR RADIATION PROTECTION TECHNICIAN documented in this encounter Plan of Treatment Scheduled Referrals Name Type Priority Associated Diagnoses Order S chedule [facility] Referral Routine Paralysis agitans (HRC) Ordered: 06/20/2014, CONSULT (AMB) Expires: 06/20 documented as of this encounter Visit Diagnoses Diagnosis Paralysis agitans (HRC) Paralysis agitans documented in this encounter Care Teams Charge Nurse Relationship Specialty Start Date End Date Lurdes Thomas MD PCP - General 06/18/14 12/11/19 documented as of this encounter
--- OUTSIDE RECORDS SUMMARY | 2022-01-20 12:50 | XMS_ITS | Encounter Summary ---
:1955 Author Organization [facility] Address [address] [place] [address] Care Team Providers Name Role Phone Unavailable Primary Care Provider Unavailable Encounter Details Date Type Department Care Team Description 05/11/2006 Office Visit [place] Charanjit [facility] [address] [place] [address] Social History Tobacco Use Types Packs/Day Years Used Date Smoking Tobacco: Never Assessed Sex Assigned at Date Recorded Not on file documented as of this encounter Plan of Treatment Not on filedocumented as of this encounter Visit Diagnoses Not on filedocumented in this encounter
--- OUTSIDE RECORDS SUMMARY | 2022-01-20 12:50 | XMS_ITS | Encounter Summary ---
:1955 Author Organization [facility] Address [address] [place] [address] Care Team Providers Name Role Phone Unavailable Primary Care Provider Unavailable Encounter Details Date Type Department Care Team Description 05/06/2008 Hospital Encounter CONV METH PKDNela Arellano, RN [address]agnon, [place] [address] Social History Tobacco Use Types Packs/Day Years [...]
--- OUTSIDE RECORDS SUMMARY | 2022-01-20 12:50 | XMS_ITS | Encounter Summary ---
:1955 Author Organization [facility] Address [address] [place] [address] Care Team Providers Name Role Phone Unavailable Primary Care Provider Unavailable Encounter Details Date Type Department Care Team Description 08/23/2007 Therapy CONV METH SP Jasbir Laughlin MATHEMATICIAN [address] [facility] Liliam Joshi N [phone] (Wo rk) Social History Tobacco Use Types [...] 0322 Note Time: 08/23/07 0001 Status: Signed Alteration Worker: Bárbara Laughlin CCC-MATHEMATICIAN (Speech and Language Pathologist) [facility] [place] Speech Pathology - Parkinson's Disease Evaluation Primary [...] No. Smoking: No. Education: High school. 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 Marital Status: . Living Arrangement: Lives with spouse. Safety in living environment: Patient feels safe in current living environment. Vulnerable adult assessment = low risk OBJECTIVE Behavioral Characteristics: Alert. Motivated. Cooperative. Tests Administered: [facility] Assessment of Communication in Parkinson's Disease - [...] One time evaluation and treatment only at [facility] [place]. Oiler And Greaser goals: -Maximize speech and voice for functional [...] 60 minutes. Electronically signed by: Bárbara Laughlin MA/LAVELL-MATHEMATICIAN, 5063, 08/23/2007 *SH~REHAB~SPARKEVAL~ Shorthand Note Completed on: 08/23/2007 1:19 PM documented in this encounter Plan of Treatment Not on filedocumented as of this encounter Visit Diagnoses Not on filedocumented in this encounter
--- OUTSIDE RECORDS SUMMARY | 2022-01-20 12:50 | XMS_ITS | Encounter Summary ---
:1955 Author Organization [facility] Address [address] [place] [address] Care Team Providers Name Role Phone Unavailable Primary Care Provider Unavailable Encounter Details Date Type Department Care Team Description 12/04/2007 Hospital Encounter CONV METH PKDKpV Nela Soriano, RN [address]agn[address], [place] [address] Social History Tobacco Use Types Packs/Day Years [...]
--- OUTSIDE RECORDS SUMMARY | 2022-01-20 12:50 | XMS_ITS | Encounter Summary ---
:1955 Author Organization [facility] Address [address] [place] [address] Care Team Providers Name Role Phone Unavailable Primary Care Provider Unavailable Encounter Details Date Type Department Care Team Description 07/22/2008 PN Conversion Only AIRPORT CONVERSION [address] [place] [address] Social History Tobacco Use Types Packs/Day Years Used Date Smoking Tobacco: Never Assessed Sex Assigned at Date Recorded Not on file documented as of this encounter Plan of Treatment Not on filedocumented as of this encounter Visit Diagnoses Not on filedocumented in this encounter
--- OUTSIDE RECORDS SUMMARY | 2022-01-20 12:50 | XMS_ITS | Encounter Summary ---
:1955 Author Organization [facility] Address [address] [address] Care Team Providers Name Role Phone Unavailable Primary Care Provider Unavailable Encounter Details Date Type Department Care Team Description 09/22/2010 PN Conversion Only Alexey Tolentino, [facility] [place] [address] [address] [facility] [place] [address] (Wo rk) Social History Tobacco Use Types Packs/Day Years Used Date Smoking Tobacco: Never Assessed Sex Assigned at Date Recorded Not on file documented as of this encounter Plan of Treatment Not on filedocumented as of this encounter Visit Diagnoses Not on filedocumented in this encounter
--- OUTSIDE RECORDS SUMMARY | 2022-01-20 12:50 | XMS_ITS | Encounter Summary ---
:1955 Author Organization [facility] Address [address] [place] [address] Care Team Providers Name Role Phone Unavailable Primary Care Provider Unavailable Encounter Details Date Type Department Care Team Description 08/17/2009 PN Conversion Only MARCO CONVERSION Alexey Garcia, [address] [place] [address] [address] [place], [place] [address] (Wo rk) Social History [...] Greater than 150 ng/m L Performed at [facility] [address] [place] [address]10 8 Specimen (Source) Anatomical Collection Method Collection Time Re ceived Time Location / / Volume Laterality 08/17/2009 8:30 AM CDT Alexey Garcia MD LAB_1 Performing Organization Address City/[facility] Code Phon e Number HP CONVERSION Prostatic Specific Antigen (F/U) (08/17/2009 8:30 AM CDT) P athologist Signature Prostate 0.6 0.0 - 4.0 HP CONVERSION Specific ng/mL Antigen Specimen (Source) Anatomical Collection Method Collection Time Re ceived Time Location / / Volume Laterality 08/17/2009 8:30 AM CDT Alexey Garcia MD LAB_1 Performing Organization Address City/[facility]/ZIP Code Phon e Number HP CONVERSION [...] Alexey Garcia MD LAB_1 Performing Organization Address City/[facility] Code Phon e Number HP CONVERSION (ABNORMAL) GLUCOSE (08/17/2009 8:30 AM CDT) P athologist Signature Lab Glucose 105 (H) 60 - 100 HP CONVERSION mg/dL Specimen (Source) Anatomical Collection Method Collection Time Re ceived Time Location / / Volume Laterality 08/17/2009 8:30 AM CDT Alexey Garcia MD LAB_1 Performing Organization Address [facility] Phon e Number HP CONVERSION ALT (SGPT) (08/17/2009 8:30 AM CDT) [facility] Method Time Signature Alanine 33 4 - 55 HP CONVERSION Aminotransferase U/L Specimen (Source) Anatomical Collection Method Collection Time Re ceived Time Location / / Volume Laterality 08/17/2009 8:30 AM CDT Alexey Garcia MD LAB_1 Performing Organization Address [facility] Phon e Number HP CONVERSION documented in this encounter Visit Diagnoses Not on filedocumented in this encounter
--- OUTSIDE RECORDS SUMMARY | 2022-01-20 12:50 | XMS_ITS | Encounter Summary ---
:1955 Author [facility] Address [address] [address] Care Team Providers Name Role Phone Unavailable Primary Care Provider Unavailable Encounter Details Date Type Department Care Team Description 07/31/2007 Hospital Encounter CONV METH PKDSV Nela Soriano, RN [address], [place] [address] Social History Tobacco Use Types Packs/Day Years [...] Therapist, Occupational Therapist, Speech and Language Pathologist, Hotel Yardperson, Registered Nurse). Orders: Evaluate and treat. Exacerbation Date: 08/21/2007 Initial Certification Dates: 08/23/2007 to 09/21/07 SUBJECTIVE: Mobility Limitations Reported: Denies limitations. Balance/Falls in past 6 months: None reported. Motor Fluctuations: No. Pain Screen: No pain. Past Medical History: Unremarkable per patient report. Support System: Lives with primary patient care associate. Living Situation: Private home, more than 1 level. [facility]. Living Environment: Urban-mostly paved areas to ambulate. Community Mobilities: Driving-unrestricted. Frequency of Outings: Leaves home on a daily basis. Leisure Activities: Plays guitar. Formal Exercises: Walking-treadmill or indoors. Weight lifting. Yoga. Exercise Frequency: Several times per week. Communication: Clear. 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 Travels several times a year. Patient's [...] -Exercise handouts. Procedures: Physical Therapy Evaluation (CPT 79918) Therapeutic Exercise (CPT 14816) 30 minutes TOTAL TREATMENT TIME: 60 minutes. Electronically signed by: Sandrine Martinez, PT, 6735, 08/23/2007 *SH~REHAB~PTPARKEVA~ Shorthand Note completed on: 08/23/2007 3:15 PM documented in this encounter Plan of Treatment Not on filedocumented as of this encounter Visit Diagnoses Not on filedocumented in this encounter
--- OUTSIDE RECORDS SUMMARY | 2022-01-20 12:50 | XMS_ITS | Encounter Summary ---
:1955 Author Organization [facility] Address [address] [place] [address] Care Team Providers Name Role Phone Unavailable Primary Care Provider Unavailable Encounter Details Date Type Department Care Team Description 05/05/2009 Nursing Visit [facility] [place] [address] [place] [address] Social History Tobacco Use Types Packs/Day Years Used Date Smoking Tobacco: Never Assessed Sex Assigned at Date Recorded Not on file documented as of this encounter Plan of Treatment Not on filedocumented as of this encounter Visit Diagnoses Not on filedocumented in this encounter
--- OUTSIDE RECORDS SUMMARY | 2022-01-20 12:50 | XMS_ITS | Encounter Summary ---
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
--- OUTSIDE RECORDS SUMMARY | 2022-01-20 12:50 | XMS_ITS | Encounter Summary ---
:1955 Author Organization [facility] Address [address] [place] [address] Care Team Providers Name Role Phone Unavailable Primary Care Provider Unavailable Encounter Details Date Type Department Care Team Description 05/11/2006 PN Conversion Only AIRPORT CONVERSION [address] [place] [address] Social History Tobacco Use Types Packs/Day Years Used Date Smoking Tobacco: Never Assessed Sex Assigned at Date Recorded Not on file documented as of this encounter Plan of Treatment Not on filedocumented as of this encounter Visit Diagnoses Not on filedocumented in this encounter
--- OUTSIDE RECORDS SUMMARY | 2022-01-20 12:50 | XMS_ITS | Encounter Summary ---
:[address] [facility] [facility] Address [address] [address] Care Team Providers Name Role Phone Unavailable Primary Care Provider Unavailable Encounter Details Date Type Department Care Team Description 08/17/2009 Office Visit [facility] Alexey Alvarez MD [address] [place] [address] [place] [address] [phone] (Wo rk) Social History Tobacco Use Types [...] signed by Alexey Garcia MD at 08/17/09 8315 Author: Alexey Garcia MD Service: (none) Author Type: Physician Filed: 09/11/102113 Note Time: 08/17/09 0001 Status: Signed Incident Response Lead: Alexey Garcia MD (Physician) SUBJECTIVE: 54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 He has no side effects. He formerly was with [facility] and his insurance is changed. He has Parkinson's and sees Dr. Phan for its management in [place]. The remainder of the complete ROS is [...]
--- OUTSIDE RECORDS SUMMARY | 2022-01-20 12:50 | XMS_ITS | Encounter Summary ---
:1955 Author Organization [facility] Address [address] [place] [address] Care Team Providers Name Role Phone Unavailable Primary Care Provider Unavailable Encounter Details Date Type Department Care Team Description 07/22/2008 [facility] Occupational [place]ft, Medicine [address] [place] [address] [place] [address] Social History Tobacco Use Types Packs/Day Years Used Date Smoking Tobacco: Never Assessed Sex Assigned at Date Recorded Not on file documented as of this encounter Plan of Treatment Not on filedocumented as of this encounter Visit Diagnoses Not on filedocumented in this encounter
--- NOTE | 2022-01-20 12:54 | ED.NURSE ---
Unable to do EKG d/t patient having a neurostimulator turned on for parkinsons. Patient does not have remote to turn off. MD notified that EKG was not completed.
[2022-01-20 13:00] VITALS: BP 149/80; PULSE 94; RESP 16; O2SAT 94
--- NOTE | 2022-01-20 13:09 | ED.GENADULT ---
HPI - General Adult General Chief complaint: GI Bleed Stated complaint: GI bleed Time Seen by Provider: 01/20/22 11:47 Source: patient and family Limitations: no limitations History of Present Illness HPI narrative: 66-year-old male, history of Parkinson's disease, postoperative day number 10 status post ileostomy takedown, presenting with rectal bleeding. States that he has been fairly constipated over the last week. Had a Fleet's enema this morning. As well as a suppository with a small stool output that had some fresh blood in it. He has been taking daily MiraLax. He is also feeling very weak. He has had very little p.o. intake this last week. He has had piece of toast here there and that is it. He has been trying to drink water but anything that he takes in makes him feel very nauseated. He has not vomited. No fevers or chills. No chest pain or shortness of breath. He has no increasing abdominal pain. Feels that his pain is very well controlled and is not worsening. He needed assistance with getting up today as he was so weak. Upon arrival here, he had a large stool. There was a couple of drops of red blood surrounding it. Related Data Home Medications Medication Instructions Recorded Confirmed amantadine HCl 137 mg 274 mg PO .Bedtime 11/25/21 01/20/22 capsule,extended release 24 hr ascorbic acid (vitamin C) 250 mg 250 mg PO DAILY 11/25/21 01/20/22 tablet carbidopa ER 61.25 mg-levodopa 245 1 cap PO QID 11/25/21 01/20/22 mg capsule,extended release citalopram 10 mg tablet 10 mg PO DAILY 11/25/21 01/20/22 cyanocobalamin (vitamin B-12) 1,000 mcg PO DAILY 11/25/21 01/20/22 1,000 mcg tablet ondansetron 4 mg disintegrating 4 mg PO .Daily as needed PRN 11/25/21 01/20/22 tablet pravastatin 80 mg tablet 80 mg PO HS 01/10/22 01/20/22 Previous Rx's Medication Instructions Recorded omeprazole 40 mg capsule,delayed 40 mg PO BID #180 caps 12/07/21 release cholecalciferol (vitamin D3) 50 2,000 unit PO DAILY #90 tabs 01/11/22 mcg (2,000 unit) tablet polyethylene glycol 3350 17 17 g PO DAILY #119 grams 01/13/22 gram/dose oral powder (Miralax) sodium chloride 1 gram tablet 1,000 mg PO TID PRN electrolyte 01/17/22 replenishment #30 tabs sodium chloride 1,000 mg soluble 1 g PO TID #30 tabs 01/17/22 tablet Allergies Allergy/AdvReac Type Severity Reaction Status Date / Time No Known Allergies Allergy Verified 01/20/22 11:19 Review of Systems Status of ROS: Reports: 10 or more systems reviewed and unremarkable except as noted in History and below [facility] Medical History (Updated 01/20/22 @ 15:11 by Phoebe Oleary MD) Achalasia of esophagus (12/2020) Cavitary lesion of lung (11/2020) Constipated Degeneration of intervertebral disc of cervical region (2011) Depression (2006) Dyslipidemia Gastroesophageal reflux disease Ileostomy present (~06/2021) Obstructive sleep apnea treated with continuous positive airway pressure (CPAP) Orthostatic hypotension Parkinson's disease (2005) Perforation of intestine (06/20/21) Prediabetes (2012) Restless legs syndrome (2010) Syncope Vitamin D deficiency Surgical History H/O ileostomy H/O right hemicolectomy (~05/2021) History of cervical discectomy (1999) History of discectomy (2000) History of esophageal surgery (12/2020) History of hernia repair (1965) Status post deep brain stimulator placement (08/2014) Status post Matthew fundoplication (03/18/21) Status post reversal of ileostomy Surgically created abdominal mucous fistula Family History Father Coronary artery disease Mother Coronary artery disease Stroke, Onset Age: 74 Family/Other Parkinsons disease, Onset Age: 50 Social History Narrative: exercises regularly. 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 Alert and oriented. Answers questions appropriately. Mood and affect are appropriate. Patient speaks in full sentences without needing to catch his breath. HEENT: Normocephalic atraumatic. Pupils are equally round reactive to light. Extraocular muscles are intact. Conjunctivae are moist without any icterus noted. Slightly dry mucous membranes. Posterior pharynx is normal. Neck is soft without any lymphadenopathy or thyromegaly. No masses are appreciated. Cardiovascular: Heart is regular rate and rhythm S1 and S2 are present without any murmurs. Lungs: Clear to auscultation bilaterally no wheezes rhonchi or rales are appreciated. Patient takes deep breaths without any discomfort. Abdomen: Very soft it. It is mildly distended. No significant tenderness. Slightly hypoactive bowel sounds. Abdominal incision is healing appropriately. Extremities: Bilateral lower extremities are without edema. Normal DP and PT pulses. Skin: Well perfused without any obvious rashes. Const: Vital Signs, click to edit/add: Vital Signs - 24 hr 01/20/22 11:12 Temperature 97.8 F Pulse Rate [Pulse Oximeter] 94 Respiratory Rate 16 Blood Pressure [Ri ght Upper Arm] 121/81 Pulse Oximetry 93 Oxygen Delivery Me thod Room Air Course Course Hospital Course: Patient proceeded to have 4 more bowel movements while in the ED today, all without any blood evident. He also received IV fluid and felt significantly better. He was able to get up and walk around at his baseline. No significant electrolyte abnormalities noted. Vital Signs Vital signs: Initial Vital Signs Temperature 97.8 F 01/20/22 11:12 Temperature Source Temporal Artery Scan 01/20/22 11:12 Pulse Rate 94 01/20/22 11:12 Pulse Rhythm 01/20/22 11:12 Pulse Strength 3+ Normal 01/20/22 11:12 Respiratory Rate 16 01/20/22 11:12 Blood Pressure 121/81 01/20/22 11:12 Blood Pressure Mean 94 01/20/22 11:12 Blood Pressure Position Supine 01/20/22 11:12 Pulse Oximetry 93 01/20/22 11:12 Oxygen Delivery Method 01/20/22 11:12 Vital Signs Temperature 97.8 F 01/20/22 11:12 Pulse Rate 94 01/20/22 11:12 Respiratory Rate 16 01/20/22 11:12 Blood Pressure 121/81 01/20/22 11:12 Pulse Oximetry 93 01/20/22 11:12 Oxygen Delivery Method 01/20/22 11:12 Temperature 97.8 F 01/20/22 11:12 Pulse Rate 94 01/20/22 11:12 Respiratory Rate 16 01/20/22 11:12 Blood Pressure 121/81 01/20/22 11:12 Pulse Oximetry 93 01/20/22 11:12 Oxygen Delivery Method 01/20/22 11:12 Medical Decision Making MDM Narrative Medical decision making narrative: 66-year-old with Parkinson's and bleeding in his stool today, seems to have resolved. Hemoglobin is steady and no significant electrolyte abnormalities noted. Did consult with Dr. Marley who felt that discharge home was reasonable given no blood in his recurrent stools and no significant electrolyte abnormality or abdominal discomfort. Medical Records Medical records reviewed: Yes I reviewed the patient's medical records Lab Data Lab results reviewed: Yes I reviewed the patient's lab results Labs: Lab Results 01/20/22 01/20/22 01/20/22 Range/Units 12:06 12:06 12:40 WBC 8.88 (4.50-11.00) K/uL RBC 4.79 (4.30-5.90) m/uL Hgb 14.2 (13.5-17.5) gm/dL Hct 42.3 (37.0-53.0) % MCV 88 (80-100) fL MCH 30 (26-34) pg MCHC 34 (32-36) gm/dL RDW Coeff of Latoya 13.1 (11.5-15.5) % Plt Count 332 (140-440) K/uL Neut % (Auto) 86.4 H (42.0-72.0) % Lymph % (Auto) 6.4 L (20-44) % [place] % (Auto) 6.8 (0.0-11.0) % Eos % (Auto) 0.1 (0.0-7.0) % Baso % (Auto) 0.1 (0.0-3.0) % Neut # (Auto) 7.70 H (1.7-7.0) K/uL Lymph # (Auto) 0.60 L (0.90-2.90) K/uL [place] # (Auto) 0.60 (0.00-0.90) K/UL Eos # (Auto) 0.01 (0.00-0.50) K/uL Baso # (Auto) 0.01 (0.00-0.30) K/uL Abs Immat Gran (auto) 0.02 (0.00-0.30) K/uL Lactate 1.2 (0.5-1.9) mmol/L SARS-CoV-2 (PCR) Negative SARS-CoV-2 (Negative) Sodium 137, potassium 3.8, chloride 94, I calcium 1.01, glucose 124, BUN 32, creatinine 0.7. Discharge Plan Discharge Clinical Impression: Weakness, Rectal bleed Patient Disposition: Home w/ Parent or Adult Condition: Improved Additional Instructions: Follow-up as scheduled with surgical team. Prescriptions: No Action amantadine HCl 137 mg capsule,extended release 24hr 274 mg PO .Bedtime carbidopa-levodopa 61.25-245 mg capsule, extended release 1 cap PO QID ascorbic acid (vitamin C) 250 mg tablet 250 mg PO DAILY cyanocobalamin (vitamin B-12) 1,000 mcg tablet 1,000 mcg PO DAILY citalopram 10 mg tablet 10 mg PO DAILY ondansetron 4 mg tablet,disintegrating 4 mg PO .Daily as needed PRN omeprazole 40 mg capsule,delayed release(DR/EC) 40 mg PO BID Qty: 180 4RF pravastatin 80 mg tablet 80 mg PO HS polyethylene glycol 3350 [Miralax] 17 gram/dose powder 17 g PO DAILY Qty: 119 0RF sodium chloride 1,000 mg Tablet,Soluble 1 g PO TID Qty: 30 0RF sodium chloride 1 gram tablet 1,000 mg PO TID PRN (Reason: electrolyte replenishment) Qty: 30 0RF cholecalciferol (vitamin D3) 50 mcg (2,000 unit) tablet 2,000 unit PO DAILY Qty: 90 4RF Follow Up/Referrals: Samantha Stauffer MD [Primary Care Provider] - Stand Alone Forms: [facility] Info Instructions
[2022-01-20 13:11] LABS: SARS PCR* Negative SARS-CoV-2 (Negative)
[2022-01-20 13:20] VITALS: BP 140/81; PULSE 93; RESP 16; O2SAT 94
--- NOTE | 2022-01-20 13:38 | P.GSPN_ITS ---
Subjective Subjective Date Seen: 01/20/22 Interval history: Patient was brought to the emergency room by his due to some bright blood on the toilet paper after had a bowel movement. He had a suppository and Fleet enema today and his noted blood in the stool. Patient continued to be weak and his decided to bring him to the emergency room. Patient had 4 bowel movements in the emergency room. He feels less bloated. He is still complaining of hiccups. Exam Narrative: Exam Narrative: Abdomen: Soft, not distended, not tender to palpation, paramedian surgical incision is healing well. Const: Vital Signs, click to edit/add: Vital Signs - 24 hr 01/20/22 11:12 Temperature 97.8 F Pulse Rate [Pulse Oximeter] 94 Respiratory Rate 16 Blood Pressure [Ri ght Upper Arm] 121/81 Pulse Oximetry 93 Oxygen Delivery Me thod Room Air Progress Note: A&P Assessment and plan (1) Constipated: Status: Acute Plan 66-year-old male with history of Parkinson's disease s/p end ileostomy takedown with primary anastomosis about 10 days ago presented to emergency room with weakness and bloating. Patient was finally able to have multiple bowel movements with MiraLax and suppositories as well as Fleet enema today. His WBC is normal. His basic metabolic panel is still pending to rule out hypokalemia and evaluate his hyp onatremia that was present during his hospital stay. Patient's bright red blood per rectum was most likely due to hemorrhoidal bleeding from trauma from suppositories and an enema. Patient recently had a colonoscopy that was normal with no evidence of colonic masses. Patient's abdominal exam is benign. Patient is fairly weak and requires assistance in getting out of bed. This is most likely multifactorial given his history of Parkinson's disease and his recent surgery. I recommended to continue with MiraLax daily and suppository daily. If patient is not having a bowel movement for 2 days, he should have a fleets enema. Patient should continue with full liquid diet and liquid diet with protein shakes to increase his nutritional status for the next couple days until he is feeling less bloated. We will wait for electrolyte results and assessment of patient's walking to determine if patient is able to go home.
[2022-01-20 14:00] VITALS: BP 131/79; PULSE 92; RESP 16; O2SAT 94
[2022-01-20 15:09] VITALS: BP 131/79; PULSE 96; RESP 16; O2SAT 95
--- NOTE | 2022-01-20 15:19 | ED.NURSE ---
Patient had 6 loose stools while here. Updated MD after these. MD did not want sample at this time. Discarded the sample that was collected. PIV was removed. Instructions were given to patient. VS within normal limits. Patient ambulated with walker and gairbelt around the unit. Patient felt he was back to his baseline. All questions answered. Patient left via wheelchair escort. Will follow up with surgery as planned.
[2022-01-20 16:29] LABS: Chloride* 92 mmol/L (96-114); Potassium* 4.1 mmol/L (3.6-5.1); Sodium* 134 mmol/L (135-149)
[2022-01-20 16:32] LABS: Blood Urea Nitrogen* 41 mg/dL (7-30); Carbon Dioxide* 32 mmol/L (20-32); Creatinine* 0.7 mg/dL (0.5-1.5); Estimated Glomerular Filt Rate 102 ml/min
[2022-01-20 16:33] LABS: Calcium* 8.5 mg/dL (8.4-10.6); Glucose* 141 mg/dL (60-115)
[2022-01-20 16:39] LABS: Troponin I* < 0.01 ng/mL (0.01-0.04)
== END 2022-01-20 15:18 | disposition home or self-care (01) ==
PROVIDERS: Emergency Provider Family Medicine; PCP Family Medicine
DX: K92.1 Melena (principal); R53.1 Weakness; G20 Parkinson's disease
CPT/HCPCS: 36415; 80048; 83605; 84484; 85025; 87635; 96360; 99283; 99284; J7030

== ENCOUNTER 2022-01-25 10:19 | Outpatient (CLI) | payer BC, SELFPAY ==
--- OUTSIDE RECORDS SUMMARY | 2022-01-25 10:21 | XMS_ITS | Clinical Summary ---
:1955 Author Organization [employer] [facility] [place] [address] Care Team Providers Name Role Phone Maria Esther Phan MD Unavailable Shannon Avery MD Unavailable Min, Charanjit Holt MD Unavailable Samantha Stauffer MD Primary Care Provider [phone] Allergies No known active allergies Medications [...] oldest Diabetes Father Heart Disease Father CAD, [place] age 68-6 9, CABG Hyperlipidemia Father Heart Disease Mother CAD, [place] age 70 Hyperlipidemia Mother Stroke Mother Other [...] Organization Address City/State/ZIP Code Phon e Number [facility] [address] [place] [address] LABORATORY-CENTRAL 2000 LABORATORY PATH TISSUE EXAM (01/10/2022 8:45 AM CDT) Component Value Ref Test Analysis Performed At [facility] gist Range Method Time Signature Case Report Pathology Report ?Case: [id number] ? 01/11/2022 CATIE Authorizing Provider: ??Kelli Johnson MD ?Collected: ? 01/10/2022 0845 ? 1:20 PM HEALTH Ordering Location: ? [facility] CENTRAL LAB ?Received: ?01/10/2022 1733 ? CDT [...] colitis, ENTRAL status post right LABORATORY hemicolectomy ([id number]) undergoing ileostomy takedown. Gross A) Received in [...] is identified. 1:20 PM HEALTH CDT LABORATORY-C Pet Walker sections are submitted: ENTRAL 1. 2 opposing resection margins, en face LABORATORY 2. Stoma TTP 01/10/2022 Microscopic The final diagnosis is based on microscopic examination of appropriate sections of all specimens. 01/11/2022 OBDULIA WANG Description 1:20 PM HEALTH CDT LABORATORY-C ENTRAL LABORATORY Additional 01/11/2022 [facility] Information Interpreted at [facility], Central Laboratory - [address], [place] [address] 1:20 PM HEALTH CDT LABORATORY-C ENTRAL LABORATORY Specimen Anatomical Collection Method Collection Time Receive d Time (Source) Location / / Volume Laterality Other ILEOSTOMY FLUID 01/10/2022 8:45 AM 2021 5:33 SAMPLE / Unknown CDT PM CDT Kelli Mays MD PATHOLOGY/CYTOLOGY Performing Organization Address City/State/ZIP Code Phon e Number [facility] [address] [place] [address] LABORATORY-CENTRAL 2000 LABORATORY from Last 3 Months Insurance Payer Benefit Plan / Subscriber ID Effective Dates Phone Addre ss Type Group [employer] [id number] 2014-Present [address] [address] [place] [address] [address] (Home) [address] [phone] Advance Directives Latest Code Status on File Code Status Date Activated Date Inactivated Comments Full Code 03/18/2021 11:01 AM 03/20/2021 5:01 PM Code Status Discussion: Not Discussed Full Code 12/31/2020 12:12 PM 01/13/2021 12:25 PM Code Status Discussion: Per Existing Order Full Code 12/25/2020 7:47 PM 12/31/2020 12:05 PM Code Status Discussion: Discussed Care Teams Road Consultant Relationship Specialty Start Date End Date Samantha Stauffer MD PCP - General Family Practice 12/27/201999 [place] [address] Maria Esther Phan MD Neurology Neurology 12/27/[address] [place] [address] Shannon Avery MD Hospitalist Pulmonary Medicine 12/27/[address] [place] [id number] Charanjit Gray MD Hospitalist Gastroenterology 12/27/20 [address] [facility] [address] [place], [place] [address]
--- OUTSIDE RECORDS SUMMARY | 2022-01-25 10:22 | XMS_ITS | Encounter Summary ---
:1955 Author Organization [facility] Address [address] [place] [address]. [place] [address] Care Team Providers Name Role Phone Lurdes Thomas MD Primary Care Provider [phone] Encounter Details Date Type Department Care Team Description 08/29/2020 Immunization [facility] Vaccination [address] [address] [place] [address] [phone] Social History Tobacco Use Types Packs/Day Years [...] on filedocumented in this encounter Care Teams Information Clerk Cashier Relationship Specialty Start Date End Date Lurdes Thomas MD PCP - General Internal Medicine 06/11/14 12/16/20 documented as of this encounter
--- OUTSIDE RECORDS SUMMARY | 2022-01-25 10:22 | XMS_ITS | Encounter Summary ---
:1955 Author Organization [facility] Address [address] [facility] [place] [address] Care Team Providers Name Role Phone Lurdes Thomas MD Primary Care Provider [phone] Reason for Visit (Routine) - Closed Specialty Diagnoses / Procedures Referred By Contact Refer red To Contact Radiology / Radiology. Diagnoses R#NA, Written Order, SB Doris, Not a read and call. Sh Ct Scan Procedures CT LUMBAR SPINE [address] [phone] Phone: Referral ID Status Reason Start Date Expiration Date Visits Requ ested Visits Authorized [id number] Closed 08/31/2015 08/30/2016 1 1 Encounter Details Date Type Department Care Team Description 08/31/2015 Hospital Encounter [facility], So re low back pain [facility] Maria Esther Amaro MD [address] [facility] [address] [place] [id number] Social History Tobacco Use Types Packs/Day Years [...] Lumbago documented in this encounter Care Teams Wearing Apparel Folder Relationship Specialty Start Date End Date Lurdes Thomas MD PCP - General Internal Medicine 06/11/14 12/16/20 documented as of this encounter
--- OUTSIDE RECORDS SUMMARY | 2022-01-25 10:22 | XMS_ITS | Encounter Summary ---
:1955 Author Organization [facility] Address [address] [place] [address]. [place] [address] Care Team Providers Name Role Phone Lurdes Thomas MD Primary Care Provider [phone] Samantha Stauffer MD Primary Care Provider [phone] Encounter Details Date Type Department Care [...] on filedocumented in this encounter Care Teams Marketing Information Analyst Relationship Specialty Start Date End Date Lurdes Thomas MD PCP - General Internal Medicine 06/11/14 12/16/20 Samantha Stauffer MD PCP - General Family Medicine 12/17/[address] [address] documented as of this encounter
--- OUTSIDE RECORDS SUMMARY | 2022-01-25 10:22 | XMS_ITS | Encounter Summary ---
:1955 Author Organization [facility] Address [address] [place] [address]. [place] [address] Care Team Providers Name Role Phone Lurdes Thomas MD Primary Care Provider [phone] Reason for Referral Medication Prior Authorization (Routine) - Closed Specialty Diagnoses / Procedures Referred By Contact Refer red To Contact Diagnoses Hyperlipidemia with target LDL less than 130 Lurdes Thomas MD [address] [address] Referral ID Status Reason Start Date Expiration Date Visits Requ ested Visits Authorized [id number] Closed Reason for Visit Reason Onset Date Comments Refill Request 10/20/2015 PRAVASTATIN 80MG Encounter Details Date Type Department Care Team Description 10/20/2015 Refill [facility] Lurdes Rojas Refill Request 1440 Demian Laughlin MD (PRAVASTATIN 80MG) [place] [address] [facility] [phone] [facility] [address] [place] [address] [phone] (Wo rk) Social History Tobacco [...] for 6 months. Please advise pt. Maggie basket hand braider Nurse Telephone Encounter - Julisa Hayden - 10/20/2015 11:53 AM CDT PRAVASTATIN 80MG Last Written Prescription Date: 04/13/2015 Last Fill Quantity: 90, # refills: 1 Last Office Visit with [facility] [place] [facility] or [facility] prescribing provider: 02/12/2015 CHOL 219 11/25/2014 HDL 65 11/25/2014 LDL 123 11/25/2014 TRIG 153 11/25/2014 CHOLHDLRATIO 3.4 11/25/2014 documented in this encounter Plan of Treatment Not on filedocumented as of this encounter Visit Diagnoses Diagnosis Hyperlipidemia with target LDL less than 130 - Primary Other and unspecified hyperlipidemia documented in this encounter Care Teams Fellmongery Worker Relationship Specialty Start Date End Date Serum, Lurdes Truman, MD PCP - General Internal Medicine 06/11/14 12/16/20 documented as of this encounter
--- OUTSIDE RECORDS SUMMARY | 2022-01-25 10:22 | XMS_ITS | Encounter Summary ---
:1955 Author Organization [facility] Address [address] [place] [address]. [place] [address] Care Team Providers Name Role Phone Lurdes Thomas MD Primary Care Provider [phone] Reason for Visit Reason Comments Recheck Medication Encounter Details Date Type Department Care Team Description 02/12/2015 Office Visit [facility] Lurdes Thomas Back pain (Primary Dx); Uzair Laughlin MD Hyperlipidemia LDL goal < 130; [address] [employer] Prediabetes; [place] [address] [place] Vitamin D deficiency; [phone] [address] [facility] Erectile d ysfunction; RD Screening for colon cancer; [place], [place] Screening for p rostate cancer [address] Social History Tobacco Use Types Packs/Day Years [...] list, Allergies, and Medical/Social/Surgical histories reviewed in [facility] andupdated as appropriate. OBJECTIVE: BP [...] annual visit and as needed Lurdes Thomas [facility] documented in this encounter [...] Signature PSA 0.50 0 - 4 ug/L [facility] Specimen Anatomical Collection Method Collection Time Receive d Time (Source) Location / / Volume Laterality Blood specimen 02/12/2015 10:25 5 (specimen) AM CDT 10:30 AM CDT Lurdes Thomas MD LAB - BLOOD ORDERABLES Performing Organization Address City/State/ZIP Code Phon e Number [facility] [address] [id number] [facility] [address] [phone], [place] [phone] Vitamin D Deficiency (02/12/2015 10:25 AM CDT) P athologist Signature Vitamin D 29 20 - 75 [facility] Deficiency ug/L [place] [facility] Comment: Season, race, dietary intake, and treatm ent affect the concentration of 03-vgmqfne-Mutnoup D. Values may decrea se during winter [...] Organization Address City/State/ZIP Code Phon e Number [facility] [address] [place] [address] [facility] Glucose (02/12/2015 10:25 AM CDT) athologist Signature Glucose 94 70 - 99 [facility] mg/dL [facility] Specimen Anatomical Collection Method Collection Time Receive d Time (Source) Location / / Volume Laterality Blood specimen 02/12/2015 10:25 5 (specimen) AM CDT 10:30 AM CDT Lurdes Thomas MD LAB - BLOOD ORDERABLES Performing Organization Address City/State/ZIP Code Phon e Number [facility] [address] [place] [address] documented in this encounter Visit Diagnoses Diagnosis [...] prostate documented in this encounter Care Teams Comp Field Case Manager Relationship Specialty Start Date End Date Lurdes Thomas MD PCP - General Internal Medicine 06/11/14 12/16/20 documented as of this encounter
--- OUTSIDE RECORDS SUMMARY | 2022-01-25 10:22 | XMS_ITS | Encounter Summary ---
:1955 Author Organization [facility] Address [address] [place] [address]. [place] [address] Care Team Providers Name Role Phone Lurdes Thomas MD Primary Care Provider Reason for Visit Reason Onset Date Comments Refill Request 04/15/2016 PRAVASTATIN 80MG Encounter Details Date Type Department Care Team Description 04/15/2016 Refill [facility] Eag an Lurdes Thomas Refill Request 1440 [facility] MD [place] (PRAVASTATIN 80MG) [place] [address] [facility] [phone] [address] (Wo rk) Social History [...] Lurdes Thomas MD - 04/15/2016 4:37 PM CARDIOLOGY NURSE PRACTITIONER Mychart sent telling patient cannot continue to fill medications without visit. Lurdes Thomas MD Internal Medicine/Pediatrics IOLOGY NURSE PRACTITIONER Telephone Encounter - Chanell Villa RN - 04/15/2016 4:30 PM CARDIOLOGY NURSE PRACTITIONER Made multiple attempts(LM & MC message) from October advising pt that he is due for an OV. Pt haven't responded. Routing refill request to provider for review/approval because: Hawa given x1 and patient did not follow up, please advise Chanell.Liliam collect on delivery clerk Nurse IOLOGY NURSE PRACTITIONER Telephone Encounter - Genie Mello - 04/15/2016 4:28 PM CST PRAVASTATIN 80MG Last Written Prescription Date: 10/23/2015 Last Fill Quantity: 90, # refills: 1 Last Office Visit with [facility] or [facility] prescribing provider: 02/12/2015 CHOL 219 11/25/2014 HDL 65 11/25/2014 LDL 123 11/25/2014 TRIG 153 11/25/2014 CHOLHDLRATIO 3.4 11/25/2014 IOLOGY NURSE PRACTITIONER documented in this encounter Plan of Treatment Not on filedocumented as of this encounter Visit Diagnoses Diagnosis Hyperlipidemia with target LDL less than 130 - Primary Other and unspecified hyperlipidemia documented in this encounter Care Teams Metal Bumper Relationship Specialty Start Date End Date Lurdes Thomas MD PCP - General Internal Medicine 06/11/14 12/16/20 documented as of this encounter
--- OUTSIDE RECORDS SUMMARY | 2022-01-25 10:22 | XMS_ITS | Encounter Summary ---
:1955 Author Organization [facility] Address [address] [place] [address]. [place] [address] Care Team Providers Name Role Phone Lurdes Thomas MD Primary Care Provider Reason for Visit Reason Onset Date Comments Panel Management 06/25/2015 Encounter Details Date Type Department Care Team Description 06/25/2015 Telephone [facility] Lurdes Oh Panel Management 1440 [facility] [place] [address] [facility] [phone] 8675 [place], [place] [address] (Wo rk) Social History Tobacco [...] a reminder letter regarding the FIT test. REPAIRER Telephone Encounter - Tamy Leahy LPN - 06/25/2015 2:13 PM CST Panel Management Review Patient has the following on his problem list: none Composite cancer screening Chart review shows that this patient is due/due soon for the following Fecal Colorectal (FIT) Summary: Patient is due/failing the following: FIT Action needed: FIT test completion Type of outreach: Sent [employer] message. Reminding patient to complete FIT test. Questions for provider review: None Tamy Leahy LPN Chart routed to Care Team . REPAIRER documented in this encounter Plan of Treatment Not on filedocumented as of this encounter Visit Diagnoses Not on filedocumented in this encounter Care Teams Metal Miner Relationship Specialty Start Date End Date Lurdes Thomas MD PCP - General Internal Medicine 06/11/14 12/16/20 documented as of this encounter
--- OUTSIDE RECORDS SUMMARY | 2022-01-25 10:22 | XMS_ITS | Encounter Summary ---
:1955 Author Organization [place] Address [address] [place] [address]. [place] [address] Care Team Providers Name Role Phone Lurdes Thomas MD Primary Care Provider Reason for Visit Reason Onset Date Comments Panel Management 11/19/2014 Colonoscopy Encounter Details Date Type Department Care Team Description 11/19/2014 Telephone [facility] Lurdes Oh Panel Management 1440 [facility] MD [place] (Colonoscopy) [place] [address] [facility] [phone] [address] (Wo rk) Social History Tobacco Use [...] Review Date of last visit with a [place] provider: Dr Thomas on 09/22/14. Date of next visit with a [place] provider: None. Problem List Patient Active Problem [...] visit for Colonoscopy/FIT. Type of outreach: Sent [employer] message. Questions for provider review: None Please indicate office visit, lab, MTM, or nurse appt if needed. Indicate fasting or not fasting. Tamy Leahy LPN Chart routed to Care Team . documented in this encounter Plan of Treatment Not on filedocumented as of this encounter Visit Diagnoses Not on filedocumented in this encounter Care Teams Shop Firer/Fireman Relationship Specialty Start Date End Date Lurdes Thomas MD PCP - General Internal Medicine 06/11/14 12/16/20 documented as of this encounter
--- OUTSIDE RECORDS SUMMARY | 2022-01-25 10:22 | XMS_ITS | Encounter Summary ---
:1955 Author Organization [facility] Address [address] [place] [address]. [place] [address] Care Team Providers Name Role Phone Lurdes Thomas MD Primary Care Provider [phone] Encounter Details Date Type Department Care Team Description 08/08/2020 [facility] [address] [place] [address] Social History Tobacco Use Types Packs/Day [...]
--- OUTSIDE RECORDS SUMMARY | 2022-01-25 10:22 | XMS_ITS | Encounter Summary ---
:1955 Author Organization [facility] Address [address] [place] [address]. [place] [address] Care Team Providers Name Role Phone Lurdes Thomas MD Primary Care Provider Reason for Visit Reason Onset Date Comments Outreach 05/30/2015 [facility] call not require d FIT ordered,[facility] Encounter Details Date Type Department Care Team Description 05/30/2015 Telephone [facility] Lurdes Thomas h ([facility] call not [facility] [place] MD required FIT MANAGEMENT DEPT [facility] ordered,cnt) [address] [place] [address] [address] [place] [address] [address] [phone] [place], [place] [address] (Wo rk) Social History Tobacco [...] on filedocumented in this encounter Care Teams Baggage Agent Supervisor Relationship Specialty Start Date End Date Lurdes Thomas MD PCP - General Internal Medicine 06/11/14 12/16/20 documented as of this encounter
--- OUTSIDE RECORDS SUMMARY | 2022-01-25 10:22 | XMS_ITS | Encounter Summary ---
:1955 Author Organization [facility] Address [address] [place] [address] Care Team Providers Name Role Phone Samantha Stauffer MD Primary Care Provider [phone] Reason for Referral Diagnostic Imaging XR (Routine) - Closed Specialty Diagnoses / Procedures Referred By Contact Refer red To Contact Diagnoses Esophageal dysphagia Charanjit Gray MD Procedures XR Esophagram [facility] [address] [address] [place], [place] [address] Referral ID Status Reason Start Date Expiration Date Visits Requ ested Visits Authorized [id number] Closed 12/09/2020 12/09/2021 1 1 Reason for Visit Diagnostic Imaging XR (Routine) - Closed Specialty Diagnoses / Procedures Referred By Contact Refer red To Contact Diagnoses Esophageal dysphagia Charanjit Gray MD Procedures XR Esophagram [facility] [address] [address] [place], [place] [address] Referral ID Status Reason Start Date Expiration Date Visits Requ ested Visits Authorized [id number] Closed 12/09/2020 12/09/2021 1 1 Encounter Details Date Type Department Care Team Description 12/17/2020 [facility] Charanjit Gray MD Esophageal Encounter [facility] [place] dysphagia [address] [facility] [address] [address] [address] [place] [address] [place], [place] [phone] (Wo rk) [address] [phone] Social History Tobacco Use Types Packs/Day Years [...] dose documented in this encounter Care Teams Transition Mgr Relationship Specialty Start Date End Date Samantha Stauffer MD PCP - General Family Medicine 12/17/20 [place] [address] documented as of this encounter
--- OUTSIDE RECORDS SUMMARY | 2022-01-25 10:22 | XMS_ITS | Encounter Summary ---
:1955 Author Organization [facility] Address [address] [place] [address]. [place] [address] Care Team Providers Name Role Phone Lurdes Thomas MD Primary Care Provider Reason for Visit Reason Onset Date Comments Prior Auth - Medication 02/12/2015 viagra Encounter Details Date Type Department Care Team Description 02/12/2015 Telephone [facility] Lurdes Oh Prior Auth - Medication 1440 [facility] MD [place] (viagra ) [place] [address] [facility] [phone] [place] [address] (Wo rk) Social History Tobacco Use [...] on filedocumented in this encounter Care Teams Nuclear Power Plant Engineer Relationship Specialty Start Date End Date Lurdes Thomas MD PCP - General Internal Medicine 06/11/14 12/16/20 documented as of this encounter
--- OUTSIDE RECORDS SUMMARY | 2022-01-25 10:22 | XMS_ITS | Clinical Summary ---
:1955 Author Organization [facility] Address [address] [facility] [place] [address] Care Team Providers Name Role Phone Samantha Stauffer MD Primary Care Provider [phone] Allergies No known active allergies Medications [...] Comments Lipids Father 1 Cardiovascular Father [address], s/p CABG in mid- late 60's Diabetes Father 2 Neurologic Disorder Father 2 Parkinson's Cardiovascular Mother CVA x4 and CT, s/p C ABG in mid-late 60's Relation [...] this topic Medical Devices Implanted Type Area Superintendent Plant Device Shelf Model / Identifier Expiration Date Ser ial / Lot Fiducials Skull IMAGE GUIDED 06/12/2017 [id number] / Implanted: Qty: 5 on 09/09/2014 by Demetrio gale, Gonzalez Snider MD at [facility] NEUROLO / [id number] Description: 5 fiducials used - opened 1 box for charging (contains 6 in box). Done in the clinic - reported to us by Alliso n Gianna Neurostim[employer] [id number] Right: Chest [employer]-NEURO 12/17/2015 [id number] / Implanted: Qty: 1 on 09/16/2014 by Demetrio gale, Gonzalez Snider MD at [facility] [id number] / Insurance Payer Benefit Plan / Subscriber ID Effective Dates Phone Addre ss Type Group BCBS BCBS OUT OF [id number] 2014-Present [phone] [address] [address] [place] [address] [address] (Home) [place] [phone] [place] 1 [phone] (Work) Advance Directives For more information, please contact: [phone] Latest Code Status on File Code Status Date Activated Date Inactivated Comments Full Code 09/10/2014 9:18 AM Care Teams Correctional Medicine Physician Relationship Specialty Start Date End Date Samantha Stauffer MD PCP - General Family Medicine 12/17/20 [facility] [address] [place] [address]
--- OUTSIDE RECORDS SUMMARY | 2022-01-25 10:22 | XMS_ITS | Encounter Summary ---
:1955 Author Organization [place] Address [address] [facility] [place] [address] Care Team Providers Name Role Phone Lurdes Thomas MD Primary Care Provider [phone] Reason for Visit (Routine) - Closed Specialty Diagnoses / Procedures Referred By Contact Refer red To Contact Radiology / Radiology. Procedures Uu Mri MR LUMBAR SPINE [address] [place] [address] Phone: Referral ID Status Reason Start Date Expiration Date Visits Requ ested Visits Authorized [id number] Closed 08/18/2015 08/17/2016 1 1 Encounter Details Date Type Department Care Team Description 08/21/2015 Hospital Encounter [facility] ParashosVianeye re low back pain [facility] Imaging Maria Esther Amaro MD [address] [place], [place] [address] [employer] [id number] [place] [address] Social History Tobacco Use Types [...] Lumbago documented in this encounter Care Teams Retail Area Manager Relationship Specialty Start Date End Date Lurdes Thomas MD PCP - General Internal Medicine 06/11/14 12/16/20 documented as of this encounter
--- OUTSIDE RECORDS SUMMARY | 2022-01-25 10:22 | XMS_ITS | Encounter Summary ---
:1955 Author Organization [facility] Address [address] [place] [address]. [place] [address] Care Team Providers Name Role Phone Lurdes Thomas MD Primary Care Provider [phone] Samantha Stauffer MD Primary Care Provider [phone] Encounter Details Date Type Department Care [...] on filedocumented in this encounter Care Teams Belting Cutter Relationship Specialty Start Date End Date Lurdes Thomas MD PCP - General Internal Medicine 06/11/14 12/16/20 Samantha Stauffer MD PCP - General Family Medicine 12/17/[address] [address] documented as of this encounter
--- OUTSIDE RECORDS SUMMARY | 2022-01-25 10:22 | XMS_ITS | Encounter Summary ---
:1955 Author Organization [facility] Address [address] [facility] [place] [address] Care Team Providers Name Role Phone Lurdes Thomas MD Primary Care Provider [phone] Encounter Details Date Type Department Care Team Description 11/25/2014 Orders Only [facility] Eag an Hyperlipidemia LDL goal < 1440 5to1 [address] [place] [address] Social History Tobacco [...] athologist Signature Cholesterol 219 (H) <200 mg/dL [facility] Comment: LDL Cholesterol is the primary guide to therapy. The NCEP recommends further evaluation of: patients with cholesterol greater than 200 mg/dL if additional risk facto rs are present, cholesterol greater than 240 mg/dL, triglycerides greater than 1 50 mg/dL, or HDL less than 40 mg/dL. Triglycerides 153 (H) 0 - 150 mg/dL [facility] Comment: Fasting specimen HDL Cholesterol 65 >40 mg/dL [facility] LDL Cholesterol Calculated 123 0 - 129 mg/dL [facility] Comment: LDL Cholesterol is the primary guide to therapy: LDL-cholesterol goal in high risk patients is <100 mg/dL and in very high risk patients is <70 mg/dL. VLDL-Cholesterol 31 (H) 0 - 30 mg/dL [facility] Cholesterol/HDL Ratio 3.4 0.0 - 5.0 [facility] Specimen Anatomical Collection Method Collection Time Receive d Time (Source) Location / / Volume Laterality Blood specimen 11/25/2014 7:57 AM 015 7:58 (specimen) CDT AM CDT Lurdes Thomas MD LAB - BLOOD ORDERABLES Performing Organization Address City/State/ZIP Code Phon e Number [facility] [address] [place] [address] documented in this encounter Visit Diagnoses Diagnosis Hyperlipidemia LDL goal < 130 Other and unspecified hyperlipidemia documented in this encounter Care Teams Head Of Partner Development Relationship Specialty Start Date End Date Lurdes Thomas MD PCP - General Internal Medicine 06/11/14 12/16/20 documented as of this encounter
--- OUTSIDE RECORDS SUMMARY | 2022-01-25 10:22 | XMS_ITS | Encounter Summary ---
:1955 Author Organization [facility] Address [address] [place] [address]. [place] [address] Care Team Providers Name Role Phone Samantha Stauffer MD Primary Care Provider [phone] Encounter Details Date Type Department Care [...] on filedocumented in this encounter Care Teams Perfect Binder Operator Relationship Specialty Start Date End Date Samantha Stauffer MD PCP - General Family Medicine 12/17/[address] [address] documented as of this encounter
--- OUTSIDE RECORDS SUMMARY | 2022-01-25 10:23 | XMS_ITS | Encounter Summary ---
:1955 Author Organization [facility] Address [address] [facility] [place] [address] Care Team Providers Name Role Phone Lurdes Thomas MD Primary Care Provider [phone] Reason for Visit Auth/Cert - Closed Specialty Diagnoses / Procedures Referred By Contact Refer red To Contact Surgery Diagnoses PARKINSONS DISEASE Sh Periop Services Procedures OPTICAL TRACKING SYSTEM INSERTION DEEP BRAIN STIMULATION BILATERAL [address] [place] [address] Phone: Referral ID Status Reason Start Date Expiration Date Visits Requ ested Visits Authorized [id number] Closed 1 1 Encounter Details Date Type Department Care Team Description 09/09/2014 Anesthesia Event [facility] Andrew Narayan [place] PeriOP Ser shyann [place] [address] [facility] [address] ANESTHESIOLOGIS [place] [address] [phone] [place] [address] Anesthesia Record Procedure [...] benefits and alternatives discussed with: patient or business services sales representative. . History & Physical Review [...] Arline Hutson APRN CNP vitamin D (ERGOCALCIFEROL) 79888 UNIT capsule Take 1 capsule (50,000 Units) [...] results for input(s): INR in the last 17872 hours. Invalid input(s): APTT RECENT LABS: ECG: NSR ECHO: CXR: documented in this encounter Miscellaneous Notes Anesthesia Care Transfer Note - Millicent Enciso APRN DRAMATIC AGENT - 09/09/2014 10:58 AM CDT Anesthesia Care [...] mg documented in this encounter Care Teams Secretary Office Clerk Relationship Specialty Start Date End Date Lurdes Thomas MD PCP - General Internal Medicine 06/11/14 12/16/20 documented as of this encounter
--- OUTSIDE RECORDS SUMMARY | 2022-01-25 10:23 | XMS_ITS | Encounter Summary ---
:1955 Author Organization [place] Address [address] [place] [address]. [place] [address] Care Team Providers Name Role Phone Lurdes Thomas MD Primary Care Provider [phone] Reason for Visit Reason Comments Neurologic Problem DBS Consult Encounter Details Date Type Department Care Team Description 07/17/2014 [facility] [address] [facility] [address] [place], [place] [address] Parkinson's disease [facility] Rachel Cuadra APRN RESPITE WORKER [facility] [address] [facility] [address] [place], [place] [address] (H) (Primary Dx) [address] [address] Social History Tobacco Use Types [...] Comments Blood Pressure 124/81 07/17/2014 9:15 AM FIRE CONTROLMAN Pulse 94 07/17/2014 9:15 AM FIRE CONTROLMAN Temperature 36.6 ??C (97.8 ??F) 07/17/2014 9:15 AM FIRE CONTROLMAN Respiratory Rate - - Oxygen Saturation 94% 07/17/2014 9:15 AM FIRE CONTROLMAN Inhaled Oxygen Concentration - - Weight 99.1 kg (218 lb 6.4 oz) 07/17/2014 9:15 AM FIRE CONTROLMAN Height 185.4 cm (6' 1) 07/17/2014 9:15 AM FIRE CONTROLMAN Body Mass Index 28.81 07/17/2014 9:15 AM FIRE CONTROLMAN documented in this encounter Patient Instructions Patient [...] no sleep medications the night before surgery CONTROLMAN documented in this encounter Progress Notes Rachel Cuadra APRN CNP - 07/17/2014 9:22 AM CST [facility] Neurosurgery Consult Note CC: Tremors and legs are lockingup Primary care Provider: Lurdes Thomas Referring provider: Dr. Maria Esther Phan HPI: Andrew Pang is a 59 year old male with a history of Parkinsons disease. He was diagnosed in August of 2007. He has been treating at the [facility] as well as Dr. Phan. [...] up at night. 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 He was [...] Outpatient Prescriptions Medication ??? vitamin D (ERGOCALCIFEROL) 86439 UNIT capsule ??? rotigotine (NEUPRO) 8 MG/24HR [...] Onset ??? Cardiovascular Mother CVA x4 and NE, s/p CABG in mid-late 60's ??? Cardiovascular Father NE, s/p CABG in mid-late 60's ??? Diabetes [...] of Parkinson's disease. [facility]. The [...] agreement with recommendations and plan. Rachel Cuadra RESPITE WORKER [facility] [address] [place] [address] Pager [phone] Jordana Kline - 07/17/2014 9:18 AM CST [...] a DBS consult(Parkinsons) - referred by Dr. Phan([facility]) 5 nursing intake time Jordana Kline CMA Discharge plan: Patient given After Visit Summary. He will be scheduled for Bilateral DBS 2 nursing discharge time Jordana Kline CMA signature CONTROLMAN documented in this encounter Plan of Treatment [...] abnormality. FAMILIA GUILLERMO MD Rachel Cuadra APRN [facility] CT ORDERABLES MR Brain w/o & w [...] planning purposes. COMPARISON: Diagnostic brain MRI from [facility] 05/26/2014. FINDINGS: The ventricles [...] planning purposes. COMPARISON: Diagnostic brain MRI from [facility] 05/26/2014. FINDINGS: The ventricles are normal in s ize. There is no midline shift. There are no extra-axial fluid co llections. There is no evidence for intracranial hemorrhage. IMPRESSION IMPRESSION: Treatment planning brain MRI images with no evidence for acute intracranial pathology. BETTY CLOUD MD Rachel Cuadra APRN RESPITE WORKER IMG MRI ORDERABLES documented in this encounter Visit Diagnoses Diagnosis Parkinson's disease (H) - Primary Paralysis agitans Parkinson's disease (H) Paralysis agitans Parkinson's disease (H) Paralysis agitans documented in this encounter Care Teams Home Teaching Grades 7 And 8 Teacher Relationship Specialty Start Date End Date Lurdes Thomas MD PCP - General Internal Medicine 06/11/14 12/16/20 documented as of this encounter
--- OUTSIDE RECORDS SUMMARY | 2022-01-25 10:23 | XMS_ITS | Encounter Summary ---
:1955 Author Organization [place] Address [address] [facility] [place] [address] Care Team Providers Name Role Phone Lurdes Thomas MD Primary Care Provider [phone] Reason for Visit Auth/Cert - Closed Specialty Diagnoses / Procedures Referred By Contact Refer red To Contact Surgery Diagnoses PARKINSONS DISEASE Sh Periop Services Procedures IMPLANT PULSE GENERATOR SUBCUTANEOUS [address] [place] [address] Phone: Referral ID Status Reason Start Date Expiration Date Visits Requ ested Visits Authorized [id number] Closed 1 1 Encounter Details Date Type Department Care Team Description 09/16/2014 Surgery [facility] Gonzalez Rowland BILATERAL LEAD EXTENSION Southhelena Snider MD AND RIGHT INFRACLAVICULAR Services XX RESIGNED XX PULSE GENERATOR PLACEMENT [address] ([employer]) [address] [place] [address] [place] [address] [phone] Surgery Details Date/Time Status Location OR Service [...] MD Primary Neurosurgery 1 Arline Peñaloza APRN DIGITAL ADVERTISING ANALYST Relocation Commissioner Autho rization 1 documented in this encounter [...] Physician Discharge Summary Patient ID: Andrew Pang [id number] 59 year old 1955 Admit date: 09/16/2014 Discharge date and time: 09/16/2014 Admitting Physician: Gonzalez Rowland MD Discharge Physician: Arline Hutson [facility] Admission Diagnoses: PARKINSONS DISEASE Discharge Diagnoses: [...] deep brain stimulator placement vitamin D (ERGOCALCIFEROL) 86727 UNIT capsule Take 1 capsule (50,000 Units) [...] Deep Brain Stimulator Postop Instructions Dr. Rowland [phone] 1. Ok to shower after 3 days. [...] ?? You have been given a patient edi programmer analyst that can check that the stimulator is [...] Take 1 capsule 4 capsule 2 08/2602/12/2015 29822 UNIT (50,000 Units) by capsuleIndications: Vitamin mouth every 7 D deficiency disease days documented as of this encounter H&P Notes Corine Alexander - 09/11/2014 7:49 AM CDT The purpose of this note is to make the H&P performed in the clinic within the last 30 days available in the hospital surgical encounter. Source Note - Lurdes Thomas MD - 08/25/2014 12:38 PM CDT [address] [address] Dept: [phone] PRE-OP EVALUATION: Today's date: 08/25/2014 Andrew Pang (: 1955) presents for pre-operative evaluation assessment as requested by . He requires evaluation and anesthesia risk assessment prior to undergoing surgery/procedurefor treatment of Parkinson's . Proposed procedure: Deep brain stimulator implant Date of Surgery/ Procedure: 09/09& Time of Surgery/ Procedure: 05 Hospital/Surgical Facility: [facility] Primary Physician: Lurdes Thomas Type of [...] cardiovascular risks for perioperative complications such as (RI, PE, VFib and 3?? AV Block): No [...] evaluation report is provided to requesting physician. [place] Preop Guidelines documented in this encounter Nursing [...] bilateral lead extensions SURGEON: Gonzalez Rowland MD Relocation Commissioner: Arline Hutson NP PROCEDURE: The patient was [...] Provider: Pavel Miner) Routine, 2 g, Intravenous, PRE-OP/PRE-NJ OCEDURE, Starting on Mon09/16/14 at 0638, For [...] Post-procedure documented in this encounter Care Teams Sample Display Preparer Relationship Specialty Start Date End Date Lurdes Thomas MD PCP - General Internal Medicine 06/11/14 12/16/20 documented as of this encounter
--- OUTSIDE RECORDS SUMMARY | 2022-01-25 10:23 | XMS_ITS | Encounter Summary ---
:1955 Author Organization [place] Address [address] [place] [address]. [place] [address] Care Team Providers Name Role Phone Lurdes Thomas MD Primary Care Provider [phone] Reason for Referral Consultation - Closed Specialty Diagnoses / Procedures Referred By Contact Refer red To Contact Diagnoses Dyspnea on exertion Lurdes Thomas [facility] [address] [place], [place] [address] [facility] [address] [place] [address] Referral ID Status Reason Start Date Expiration Date Visits Requ ested Visits Authorized [id number] Closed 07/10/2014 01/06/2015 1 1 P PREPARER Encounter Details Date Type Department Care Team Description 07/10/[address] [facility] Eag an Lurdes Thomas Dyspnea on exertion 1440 Demian Laughlin MD (Primary Dx) [place] [address] [facility] [phone] [place] [address] [place] [address] 25 Social History Tobacco Use Types [...] Name Type Priority Associated Diagnoses Order S [facility] PULMONARY MEDICINE Referral Routine Dyspnea on exertion Or dered: 07/10/2014 REFERRAL documented as of this encounter Visit Diagnoses Diagnosis Dyspnea on exertion - Primary Other dyspnea and respiratory abnormalit y documented in this encounter Care Teams Vehicle Detailer Relationship Specialty Start Date End Date Lurdes Thomas MD PCP - General Internal Medicine 06/11/14 12/16/20 documented as of this encounter
--- OUTSIDE RECORDS SUMMARY | 2022-01-25 10:23 | XMS_ITS | Encounter Summary ---
:1955 Author Organization [place] Address [address] [place] [address]. [place] [address] Care Team Providers Name Role Phone Lurdes Thomas MD Primary Care Provider [phone] Reason for Visit Reason Onset Date Comments Refill Request 11/17/2014 PRAVASTATIN 80MG Encounter Details Date Type Department Care Team Description 11/17/2014 Refill [facility] Eag Lurdes Rojas Refill Request 1440 [facility] MD [place] (PRAVASTATIN 80MG) [place] [address] [facility] [phone] [place] [address] 25 (Wo rk) Social History Tobacco Use [...] # refills: 0 Last Office Visit with [facility] primary care provider: 08/25/2014 CHOL 178 09/20/2012 HDL 66 09/20/2012 LDL 95 09/20/2012 TRIG 83 09/20/2012 CHOLHDLRATIO 2.7 09/20/2012 documented in this encounter Plan of Treatment Not on filedocumented as of this encounter Visit Diagnoses Diagnosis Hyperlipidemia LDL goal < 130 - Primary Other and unspecified hyperlipidemia documented in this encounter Care Teams Manager Home Improvement Relationship Specialty Start Date End Date Lurdes Thomas MD PCP - General Internal Medicine 06/11/14 12/16/20 documented as of this encounter
--- OUTSIDE RECORDS SUMMARY | 2022-01-25 10:23 | XMS_ITS | Encounter Summary ---
:1955 Author Organization [place] Address [address] [place] [address]. [place] [address] Care Team Providers Name Role Phone Lurdes Thomas MD Primary Care Provider [phone] Reason for Visit Reason Comments Pre-Op Exam Encounter Details Date Type Department Care Team Description 08/11/2014 Office Visit [facility] Lurdes Thomasop gen eral physical exam (Primary Dx); [place] Laughlin MD Parkinson disease (H); [address] Leg swelling; [place] [address] [place] Acute bronchitis [phone] [place], [place] [address] Social History Tobacco Use Types Packs/Day [...] Thomas MD - 08/11/2014 2:01 PM CDT [address] [address] Dept: [phone] PRE-OP EVALUATION: Today's date: 08/11/2014 Andrew Pang (: 1955) presents for pre-operative evaluation assessment as requested by . He requires evaluation and anesthesia risk assessment prior to undergoing surgery/procedurefor treatment of Parkinson's . Proposed procedure: Deep Brain Stimulator insertion Date of Surgery/ Procedure: 09/09 Time of Surgery/ Procedure: 529 Hospital/Surgical Facility: [facility] Primary Physician: Lurdes Thomas Type of [...] evaluation report is provided to requesting physician. [place] Preop Guidelines documented in this encounter Nursing [...] bronchitis documented in this encounter Care Teams Blending Tank Helper Relationship Specialty Start Date End Date Lurdes Thomas MD PCP - General Internal Medicine 06/11/14 12/16/20 documented as of this encounter
--- OUTSIDE RECORDS SUMMARY | 2022-01-25 10:23 | XMS_ITS | Encounter Summary ---
:1955 Author Organization [place] Address [address] [facility] [place] [address] Care Team Providers Name Role Phone Lurdes Thomas MD Primary Care Provider Reason for Visit Auth/Cert - Closed Specialty Diagnoses / Procedures Referred By Contact Refer red To Contact Surgery Diagnoses PARKINSONS DISEASE Sh Periop Services Procedures OPTICAL TRACKING SYSTEM INSERTION DEEP BRAIN STIMULATION BILATERAL [address] [place] [address] Phone: Referral ID Status Reason Start Date Expiration Date Visits Requ ested Visits Authorized [id number] Closed 1 1 Encounter Details Date Type Department Care Team Description 09/09/2014 Surgery [facility] Gonzalez Rowland BILATERAL SUBTHALMIC [place] PeriOP MD [place] NUCLEUS DEEP BRAIN Services XX RESIGNED XX STIMULATOR [address] [place] [address] [place] [address] [phone] Surgery Details Date/Time Status Location OR Service [...] Neurosurgery 1 Arline Peñaloza APRN CNP Assisting Anode Crew Supervisor Shereen pretty 1 documented in this encounter [...] APRN CNP - 09/10/2014 9:19 AM CDT [facility] Discharge Summary Neurosurgery Date of Admission: 09/09/2014 [...] up with further consultation recommendations. Rachel Cuadra [facility] [address] [place] [address] Pager [phone] Significant Results and Procedures NONE Pending Results Unresulted Labs Ordered in the Past 30 Days of this Admission No orders found for last 60 day(s). Code Status Full Code Primary Care Physician Lurdes Laughlin [facility] Physical Exam Temp: 97.9 ??F (36.6 ??C) [...] other recreational vehicles Call my office at [phone] for increasing redness, swelling or pus draining [...] deep brain stimulator placement vitamin D (ERGOCALCIFEROL) 85928 UNIT capsule Take 1 capsule (50,000 Units) [...] other recreational vehicles Call my office at [phone] for increasing redness, swelling or pus draining [...] Take 1 capsule 4 capsule 2 08/2602/12/2015 95187 UNIT (50,000 Units) by capsuleIndications: Vitamin mouth [...] Thomas MD - 08/25/2014 12:38 PM CDT [address] [place] [address] Dept: [phone] PRE-OP EVALUATION: Today's date: 08/25/2014 Andrew Pang (: 1955) presents for pre-operative evaluation assessment as requested by . He requires evaluation and anesthesia risk assessment prior to undergoing surgery/procedurefor treatment of Parkinson's . Proposed procedure: Deep brain stimulator implant Date of Surgery/ Procedure: 09/09& Time of Surgery/ Procedure: 529 Hospital/Surgical Facility: [facility] Primary Physician: Lurdes Thomas Type of Anesthesia [...] care (reference Craniotomy/Craniectomy/Cranioplasty (Adult) CPG). Outcome: Improving [phone] Neuro: slight tremors hands, would freeze at [...] brain stimulator placement SURGEON: Gonzalez Rowland MD Anode Crew Supervisor: Arline Hutson NP 59 yo man with [...] eda holes were made with the 14mm revenue enforcement collection agent drill over the markedbony entry points. [...] microelectrode were inserted at 15mm above target, [id number] and impedences confirmed <400kohms. I began advancing [...] effects. The decisionwas made to insert a [employer]stronic 3389 macroelectrode with the distal 0 [...] The decision was made to insert a [employer] Solutionstronic 3389 macroelectrode with the distal 0 [...] 8:20 CDT AM CDT Gonzalez Rowland MD [facility] POCT Performing Organization Address City/State/ZIP Code [...] stimulator leads. LOGAN GUILLERMO MD Arline Peñaloza INSIDE SALES ACCOUNT MANAGER CHEMICAL PRODUCTION TECHNICIAN IMG CT ORDERABLES Hemoglobin (09/09/2014 6:10 AM CDT) athologist Signature Hemoglobin 14.8 13.3 - 17.7 [place] g/dL [facility] Specimen Anatomical Collection Method Collection Time Receive d Time (Source) Location / / Volume Laterality Blood specimen 09/09/2014 6:10 AM 015 6:13 (specimen) CDT AM CDT Jacquie Coughlin LAB - BLOOD ORDERABLES Performing Organization Address City/State/ZIP Code Phon e Number M [facility] [address] [place] [address] [place] [address] [place] [address] Potassium (09/09/2014 6:10 AM CDT) athologist Signature Potassium 3.4 3.4 - 5.3 [place] mmol/L [facility] Specimen Anatomical Collection Method Collection Time Receive d Time (Source) Location / / Volume Laterality Blood specimen 09/09/2014 6:10 AM 015 6:13 (specimen) CDT AM CDT Jacquie Coughlin LAB - BLOOD ORDERABLES Performing Organization Address City/State/ZIP Code Phon e Number [facility] [address] [place] [address] [place] [address] [place] [address] documented in this encounter Visit Diagnoses Not [...] Site /Surgical Site 09/09/14 at 0858, Intra-procedure ltzwlhdf-eyhqtqzwgk-jqdbhkvdv-calcium Given 09/09/2014 4 mLs Operative (TISSEEL) topical [...] 09/10/2014 amantadine (SYMMETREL) capsule 100 mg (CANCELED) 9713 (Given - Provider: Nasim Haddad RN)2006 (Given - Provider: Nomi Manuel RN - Comment: Pt states he has not taken his two doses today.) 3828 (Given - Provider: Nomi Manuel RN)0917 (Given [...] t (CANCELED) 1441 (Given - Provider: Nasim Haddad, JAMAL)1851 (Given - Provider: Chloé Davalos RN) 0528 (Given - Provider: Nomi Manuel RN)0918 (Given - Provider: Ivelisse Mccormack, JAMAL)1430 (Canceled Entry - Provider: Orders Generic Provider [...] RN)0754 (Given - Provider: Millicent Enciso APRN PLUG SHAPER HAND)0954 (Given - Provider: Millicent Enciso APRN CRNA) Routine, 2 g, Intravenous, PRE-OP/PRE-OR OCEDURE, Starting on Mon09/09/14 at 0543, For 1 dose, Give first dose within 1 hour PRIOR to incision. If patient weight is greater than or equal to 120 kg change dose to 3 g., Indications: Perioperative Pharmacoprophylaxis, P re-procedure citalopram (celeXA) tablet 10 mg (CANCELED) 0919 (Given - Provider: Ivelisse Mccormack, JAMAL) 10 mg, Oral, DAILY, First dose on [...] RN) 0918 (Given - Provider: Ivelisse Mccormack, JAMAL) 1-2 tablet, Oral, 2 TIMES DAILY, First [...] Reason: IV Infusing)2255 (Given - Provider: Nomi Manuel RN) 0526 (Given - Provider: Nomi Manuel RN)1215 (Canceled Entry - Provider: Orders Generic [...] Haddad RN)1628 (Rate/Dose Verify - Provider: Chloé Davalos RN) 0751 (Rate/Dose Verify - Provider: Ivelisse Mccormack, JAMAL)1100 (Stopped - Provider: Ivelisse Mccormack, JAMAL) at 75 mL/hr, Intravenous, CONTINUOUS, Un til tolerating PO, Post-procedure, Starting Mon09/09/14 at 1215, Until Mon09/10/14 at 1701 lactated ringers infusion (CANCELED) 062 5 (New Bag - Provider: Lori Comer, RN)0726 (Anesthesia Volume Adjustment - Provider: Millicent Enciso APRN PLUG SHAPER HAND)1020 (New Bag - Provider: Millicent Enciso APRN PLUG SHAPER HAND)1059 (Anesthesia Volume Adjustment - Provider: Millicent Enciso APRN CRNA) at 75-100 mL/hr, Intravenous, CONTINUOUS , UNLESS otherwise indicated., Pre- procedure, Starting on Mon09/09/14 at 0545, Until Mon09/09/14 at 1053 niCARdipine 40 mg in 200 mL 0.9% NaCl (CARDENE) infusion (CA NCELED) 1215 (New Bag - Provider: Nasim Haddad RN)1638 (New Bag - Provider: Chloé Davalos, JAMAL)1732 (Rate/Dose Change - Provider: Chloé Davalos RN)2253 (New Bag - Provider: Nomi Manuel, JAMAL) 0330 (New Bag - Provider: Nomi Manuel, JAMAL)0700 (Rate/Dose Change - Provider: Nomi Manuel RN)0751 (Rate/Dose Verify - Provider: Ivelisse Mccormack, JAMAL)0910 (Stopped - Provider: Ivelisse Mccormack RN) 2.5-15 mg/hr (12.5-75 mL/hr), at 12.5-75 mL/hr, Intravenous, CONTINUOUS, Starting Mon09/09/14 at 1215, Titrate by 2.5 mg/hr [...] - Pro vider: Gonzalez Rowland) PRN, Starting on Mon09/09/14 at 1012, Intra-procedure ceFAZolin 1000 mg + gentamicin 120 mg + NaCl 0.9% 1000 mL Nahid ttle (CANCELED) 0857 (Given - Provider: Gonzalez Rowland) PRN, Starting on Mon09/09/14 at 0857, Intra-procedure HYDROmorphone (PF) (DILAUDID) injection 0.3-0.5 mg (CANCELED ) 1129 (Given - Provider: Cami Alves, JAMAL) 0.3-0.5 mg, Intravenous, EVERY 5 MIN PRN , Starting Mon09/09/14 at 1030, Until Mon09/09/14 at 1202, moderate to severe pain, acute pain. May administer if RR is > 10 , PACU, If fentanyl is also ordere d, use HYDROmorphone if pain control ins ufficient with fentanyl or a longer acting agent is needed. Max cumulative dose = 2 mg HYDROmorphone (PF) (DILAUDID) injection 0.3-0.5 mg (CANCELED ) 1301 (Given - Provider: Nasim Haddad, JAMAL)1600 (Given - Provider: Georges Hedrick, JAMAL)1851 (Given - Provider: Chloé Davalos RN) 0.3-0.5 mg, Intravenous, EVERY 30 MIN OR N, Starting Mon09/09/14 at 1209, Until Mon09/10/14 at 1701, severe pain, Post-procedure lidocaine 1%, EPINEPHrine 1:100,000 with bupivacaine 0.5% mixed 1:1 60 mL + 10 mL 8.4% sodium bicarbonate (CANCELED) 1011 (Given - Pr ovider: Gonzalez Rowland - Comment: 12 ml.of the sodium bicarb used) PRN, Starting on Mon09/09/14 at 1011, Intra-procedure lidocaine BUFFERED 1 % solution 0.1-1 mL (COMPLETED) 0626 (Given - Provider: Lori Comer RN) 0.1-1 mL, Intradermal, ONCE PRN, mild pa in with VAD insertion or accessing implanted port., Starting Mon09/09/14 at 0543, For 1 dose, Do NOT give if patient has a history of allergy to any local anesthetic or any abdi product., Pre-procedure mineral oil OIL (CANCELED) 0858 (Given - Provider: Gonzalez Rowland - Comment: used for intruments) PRN, Starting on 4/21/15 at 0858, Intra-procedure sodium chloride 0.9% (bottle) irrigation (CANCELED) 0900 (Given - Provider: Gonzalez Rowland) PRN, Starting on Mon09/09/14 at 0900, Intra-procedure thrombin 5000 UNITS vial (CANCELED) 0858 (Given - Provider: Gonzalez Rowland) PRN, Starting on Mon09/09/14 at 0858, Intra-procedure nngawkqi-mlxlhhrwtc-efeulatgu-calcium (TISSEEL) topical solu tion (CANCELED) 0859 (Given - Provider: Gonzalez Rowland)0900 (Given - Provider: Gonzalez Rowland)0901 (Given - Provider: Gonzalez Rowland)0921 (Given - Provider: Gonzalez Rowland)0943 (Given - Provider: Gonzalez Rowland) PRN, Starting on Mon09/09/14 at 0859, Intra-procedure documented in this encounter Care Teams Credit Administration Specialist Relationship Specialty Start Date End Date Lurdes Thomas MD PCP - General Internal Medicine 06/11/14 12/16/20 documented as of this encounter
--- OUTSIDE RECORDS SUMMARY | 2022-01-25 10:23 | XMS_ITS | Encounter Summary ---
:1955 Author Organization [place] Address [address] [facility] [place] [address] Care Team Providers Name Role Phone Lurdes Thomas MD Primary Care Provider [phone] Encounter Details Date Type Department Care Team Description 09/11/2014 Telephone [facility] Nurse Eladia Muñoz, RN Advisors [address] [place] [address] Social History Tobacco Use Types Packs/Day [...] bandages are is very itchy. Will page professional skater for [facility] page computer numerical control operator for [facility] to have professional skater Dr. Rowland call Natasha @ [phone]. Did not complete infection screen for ebola. [...] as expected or comes out ? NO infectious diseases physician (pump, infusion catheter) damaged or not functioning [...] least 15 seconds or use a hand lightning rod erector before and after touching the wound area. [...] on filedocumented in this encounter Care Teams Yarrow Gatherer Relationship Specialty Start Date End Date Lurdes Thomas MD PCP - General Internal Medicine 06/11/14 12/16/20 documented as of this encounter
--- OUTSIDE RECORDS SUMMARY | 2022-01-25 10:23 | XMS_ITS | Encounter Summary ---
:1955 Author Organization [place] Address [address] [place] [address]. [place] [address] Care Team Providers Name Role Phone Lurdes Thomas MD Primary Care Provider Reason for Visit Reason Onset Date Comments Refill Request 08/20/2014 PRAVASTATIN 80MG Encounter Details Date Type Department Care Team Description 08/20/2014 Refill [facility] Eag Lurdes Rojas Refill Request 1440 [facility] MD [place] (PRAVASTATIN 80MG) [place] [address] [facility] [phone] [place] [address] (Wo rk) Social History Tobacco Use [...] hyperlipidemia documented in this encounter Care Teams Ground Control Approach Technician Relationship Specialty Start Date End Date Lurdes Thomas MD PCP - General Internal Medicine 06/11/14 12/16/20 documented as of this encounter
--- OUTSIDE RECORDS SUMMARY | 2022-01-25 10:23 | XMS_ITS | Encounter Summary ---
:1955 Author Organization [place] Address [address] [facility] [place] [address] Care Team Providers Name Role Phone Lurdes Thomas MD Primary Care Provider [phone] Reason for Visit Auth/Cert - Closed Specialty Diagnoses / Procedures Referred By Contact Refer red To Contact Surgery Diagnoses PARKINSONS DISEASE Sh Periop Services Procedures OPTICAL TRACKING SYSTEM INSERTION DEEP BRAIN STIMULATION BILATERAL [address] [place] [address] Phone: Referral ID Status Reason Start Date Expiration Date Visits Requ ested Visits Authorized [id number] Closed 1 1 Encounter Details Date Type Department Care Team Description 09/09/2014 - [facility]2014 Simone Snider MD Care XX RESIGNED XX [address] [place] [address] [place] [id number] Social History Tobacco Use Types Packs/Day Years [...] APRN CNP - 09/10/2014 9:19 AM CDT [facility] Discharge Summary Neurosurgery Date of [...] up with further consultation recommendations. Rachel Cuadra PHYSICIAN AIDE [facility] [address] [place] [address] Pager [phone] Significant Results and Procedures NONE Pending Results [...] other recreational vehicles Call my office at [phone] for increasing redness, swelling or pus draining [...] deep brain stimulator placement vitamin D (ERGOCALCIFEROL) 17553 UNIT capsule Take [...] encounter Discharge Instructions Discharge Rachel Muñoz APRN PHYSICIAN AIDE - 09/10/2014 9:19 AM CDT Discharge instructions: No lifting of more than 10 pounds until follow up visit as scheduled Ok to walk as tolerated, avoid bedrest. Ok to use ice to areas. No contact sports until after follow up visit No high impact activities such as; running/jogging, Biking, snowmobile or 4 miller riding or any other recreational vehicles Call my office at [phone] for increasing redness, swelling or pus draining [...] Take 1 capsule 4 capsule 2 08/2602/12/2015 12990 UNIT (50,000 Units) by capsuleIndications: Vitamin mouth [...] Thomas MD - 08/25/2014 12:38 PM CDT [address] [address] Dept: [phone] PRE-OP EVALUATION: Today's date: 08/25/2014 Andrew Poly (: 1955) presents for pre-operative evaluation assessment as requested by . He requires evaluation and anesthesia risk assessment prior to undergoing surgery/procedurefor treatment of Parkinson's . Proposed procedure: Deep brain stimulator implant Date of Surgery/ Procedure: 09/09& Time of Surgery/ Procedure: 529 Hospital/Surgical Facility: [facility] Primary Physician: Lurdes Thomas Type [...] cardiovascular risks for perioperative complications such as ([place], PE, VFib and 3?? AV Block): No [...] evaluation report is provided to requesting physician. [facility] Preop Guidelines documented in this encounter Nursing [...] care (reference Craniotomy/Craniectomy/Cranioplasty (Adult) CPG). Outcome: Improving 2512-1016 Neuro: slight tremors hands, would freeze at times with walking/transfer otherwise intact as pre hospitalization per pt. CV: Nicardipine weaned to off keeping SB/P 90-140. GI Eating well. U/O voiding. Discharge instructions reviewed and given, see paper sheets. Discharged with to [facility] with w/cand volunteer Plan of [...] neuro checks to resume. Op Note - CceiGonzalez hook - 09/09/2014 10:52 AM CDT PREOPERATIVE DIAGNOSIS: Parkinson's Disease POSTOPERATIVE DIAGNOSIS: same OPERATIVE PROCEDURE: bilateral STN deep brain stimulator placement SURGEON: Gonzalez Rowland MD Licensed Optical Dispenser: Arline Hutson NP 59 yo man with [...] holes were made with the 14mm quality assurance drill over the markedbony entry points. The [...] microelectrode were inserted at 15mm above target, [id number] and impedences confirmed <400kohms. I began advancing [...] effects. The decisionwas made to insert a Tunetronic 3389 macroelectrode with the distal 0 contact [...] The decision was made to insert a Tunetronic 3389 macroelectrode with the distal 0 contact [...] 8:20 CDT AM CDT Gonzalez Rowland MD [facility] POCT Performing Organization Address City/State/ZIP Code Phon [...] stimulator leads. LOGAN GUILLERMO MD Arline Peñaloza CASE AIDE PHYSICIAN AIDE IMG CT ORDERABLES Hemoglobin (09/09/2014 6:10 AM CDT) P athologist Signature Hemoglobin 14.8 13.3 - 17.7 [place] g/dL [facility] Specimen Anatomical Collection Method Collection Time Receive d Time (Source) Location / / Volume Laterality Blood specimen 09/09/2014 6:10 AM 015 6:13 (specimen) CDT AM CDT Jacquie Coughlin LAB - BLOOD ORDERABLES Performing Organization Address City/State/ZIP Code Phon e Number [facility] [address], [place] [address] [facility] [address] [place] [address] Potassium (09/09/2014 6:10 AM CDT) athologist Signature Potassium 3.4 3.4 - 5.3 [place] mmol/L [facility] Specimen Anatomical Collection Method Collection Time Receive d Time (Source) Location / / Volume Laterality Blood specimen 09/09/2014 6:10 AM 015 6:13 (specimen) CDT AM CDT Jacquie Coughlin LAB - BLOOD ORDERABLES Performing Organization Address City/State/ZIP Code Phon e Number [facility] [address] [place] [address] [facility] [address] [place] [address] documented in this encounter Visit Diagnoses Diagnosis [...] 1 tablet (CANCELED) 1143 (Given - Provider: Cmai Alves RN) 1 tablet, Oral, 3 TIMES [...] 1 patch (CANCELED) 1356 (Given - Provider: Naism Haddad RN) 0811 (Given - Provider: Ivelisse [...] Volume Adjustment - Provider: Millicent Enciso APRN SUPERCALENDER OPERATOR HELPER)1020 (New Bag - Provider: Millicent Enciso APRN SUPERCALENDER OPERATOR HELPER)1059 (Anesthesia Volume Adjustment - Provider: Millicent Enciso APRN SUPERCALENDER OPERATOR HELPER) at 75-100 mL/hr, Intravenous, CONTINUOUS , UNLESS [...] RN) 0.3-0.5 mg, Intravenous, EVERY 30 MIN NC N, Starting 09/09/14 at 1209, Until Mon09/10/14 [...] (New Bag - Provider: Millicent Enciso APRN SUPERCALENDER OPERATOR HELPER - Comment: surgeon and MDA aware of infusion starting)0850 (Rate/Dose Change - Provider: Millicent Enciso APRN SUPERCALENDER OPERATOR HELPER)0853 (Rate/Dose Change - Provider: Millicent Enciso APRN SUPERCALENDER OPERATOR HELPER) CONTINUOUS PRN, Starting on Mon09/09/14 at 0844, Anesthesia Intra-op 0900 (Rate/Dose Change - Provider: Millicent Enciso APRN SUPERCALENDER OPERATOR HELPER)0915 (Rate/Dose Change - Provider: Millicent Enciso APRN SUPERCALENDER OPERATOR HELPER)0930 (Rate/Dose Change - Provider: Millicent Enciso APRN SUPERCALENDER OPERATOR HELPER)0945 (Rate/Dose Change - Provider: Millicent Enciso APRN SUPERCALENDER OPERATOR HELPER) 1000 (Rate/Dose [place] - Provider: Millicent Enciso APRN SUPERCALENDER OPERATOR HELPER)1018 (Rate/Dose Change - Provider: Millicent Enciso APRN SUPERCALENDER OPERATOR HELPER)1025 (Rate/Dose Change - Provider: Millicent Enciso APRN SUPERCALENDER OPERATOR HELPER)1030 (Rate/Dose Change - Provider: Millicent Enciso APRN [...] Rowland) PRN, Starting 09/09/14 at 0858, Intra-procedure cmhorsrh-iabulkkcft-hcqooyyjb-calcium (TISSEEL) topical solu tion (CANCELED) 0859 (Given - Provider: Gonzalez Rowland)0900 (Given - Provider: Gonzalez Rowland)0901 (Given - Provider: Gonzalez Rowland)0921 (Given - Provider: Gonzalez Rowland)0943 (Given - Provider: Gonzalez Rowland) PRN, Starting 09/09/14 at 0859, Intra-procedure documented in this encounter Care Teams Power Station Operator Relationship Specialty Start Date End Date Lureds Thomas MD PCP - General Internal Medicine 06/11/14 12/16/20 documented as of this encounter
--- OUTSIDE RECORDS SUMMARY | 2022-01-25 10:23 | XMS_ITS | Encounter Summary ---
:1955 Author Organization [facility] Address [address] [place] [address]. [place] [address] Care Team Providers Name Role Phone Lurdes Thomas MD Primary Care Provider [phone] Reason for Visit Reason Onset Date Comments Other 11/13/2014 Battery moving in [facility] Encounter Details Date Type Department Care Team Description 11/13/2014 Telephone [facility] Gonzalez Rowland Other (Ba ttroberto carlos moving [facility] MD Tylor in chest) [place] XX RESIGNED XX [address] [facility] [address] [place] [address] [place] [address] [place] [address] [place] [address] [phone] Social History Tobacco Use Types Packs/Day Years [...] Notes Telephone Encounter - Rachel Cuadra, MARISOL DETECTIVE BUREAU CHIEF - 11/13/2014 3:03 PM CDT Pt called [...] on filedocumented in this encounter Care Teams Histology Tech Relationship Specialty Start Date End Date Lurdes Thomas MD PCP - General Internal Medicine 06/11/14 12/16/20 documented as of this encounter
--- OUTSIDE RECORDS SUMMARY | 2022-01-25 10:23 | XMS_ITS | Encounter Summary ---
:1955 Author Organization [place] Address [address] [facility] [place] [address] Care Team Providers Name Role Phone Lurdes Thomas MD Primary Care Provider [phone] Encounter Details Date Type Department Care Team Description 10/09/2014 Medical Correspondence [facility] Scan, LETTER FROM [facility], Non-Provider NIECY COOPER, Health Info Elicia CONTRERAS MD-09/20 Srvcs [address] [facility] [place] [address] Social History Tobacco Use Types [...] on filedocumented in this encounter Care Teams Tip Stitcher Relationship Specialty Start Date End Date Lurdes Thomas MD PCP - General Internal Medicine 06/11/14 12/16/20 documented as of this encounter
--- OUTSIDE RECORDS SUMMARY | 2022-01-25 10:23 | XMS_ITS | Encounter Summary ---
:1955 Author Organization [place] Address [address] [facility] [place] [address] Care Team Providers Name Role Phone Lurdes Thomas MD Primary Care Provider [phone] Reason for Visit (Routine) - Closed Specialty Diagnoses / Procedures Referred By Contact Refer red To Contact Radiology / Radiology. Diagnoses R#NA, BC, Epic Order Sh Ct Scan Procedures CT HEAD WO [address] [place] [address] Phone: Referral ID Status Reason Start Date Expiration Date Visits Requ ested Visits Authorized [id number] Closed 08/11/2014 08/11/2015 1 1 Encounter Details Date Type Department Care Team Description 09/08/2014 Hospital Encounter [facility] Rachel Cuadra rkinson's disease [facility], WAREHOUSE SUPERVISOR QA INTERNSHIP (H) [address] [place] [address] ORTHOPEDICS [phone] [place] [address] Social History Tobacco Use Types Packs/Day Years [...] Take 1 capsule 4 capsule 2 08/2602/12/2015 14906 UNIT (50,000 Units) by capsuleIndications: Vitamin mouth [...] without the benefit contrast material. Procedure Note Famliia Guillermo MD - 09/08/2014Forma tting of this [...] abnormality. FAMILIA GUILLERMO MD Rachel Cuadra APRN QA INTERNSHIP IMG CT ORDERABLES documented in this encounter Visit Diagnoses Diagnosis Parkinson's disease (H) Paralysis agitans documented in this encounter Care Teams Supervisor In Circuit Testing Relationship Specialty Start Date End Date Lurdes Thomas MD PCP - General Internal Medicine 06/11/14 12/16/20 documented as of this encounter
--- OUTSIDE RECORDS SUMMARY | 2022-01-25 10:23 | XMS_ITS | Encounter Summary ---
:1955 Author Organization [place] Address [address] [facility] [place] [address] Care Team Providers Name Role Phone Lurdes Thomas MD Primary Care Provider [phone] Encounter Details Date Type Department Care Team Description 07/18/2014 Hospital Encounter [facility] [address] [facility] [place] [id number] Social History Tobacco Use Types Packs/Day Years [...] at [facility] CR 0600 1000 1430 1900 rotigotine (NEUPRO) 8 Place 1 patch onto 0 02/12/2015 MG/24HR the skin daily sildenafil (VIAGRA) 50 MG Take 1 tablet by 10 tablet 12 09/2002/12/2015 tabletIndications: mouth daily as Erectile dysfunction needed for erectile dysfunction. vitamin D (ERGOCALCIFEROL) Take 1 capsule 8 capsule 0 06/1208/01/2014 75807 UNIT (50,000 Units) by capsuleIndications: mouth every 7 days Vitamin D deficiency for 8 doses disease pravastatin (PRAVACHOL) 80 Take 1 tablet by 90 tablet 3 06/201208/20/2014 MG tabletIndications: mouth daily. Hyperlipidemia LDL goal < 130 documented as of this encounter Plan of Treatment Not on filedocumented as of this encounter Procedures Procedure Name Priority Date/Time Associated Diagnosis Comme nts MR EXTERNAL IMAGING Routine 05/26/2014 11:24 AM R esults for this [facility] procedure are i n the results section. documented in this encounter Results MR Digital Archive Non-[place] (05/26/2014 11:24 AM [facility]) Specimen (Source) Anatomical Location Collection Method / Collectio n Time Received Time / Laterality Volume Narrative [facility] - 07/18/2014 11:24 AM [facility] <!--EPICS-->Digitized exam for comparison only; no results available<!--EPICE--> Radiology Non-Fv Credentialed Provider IMG EXTERNAL IM AGING ORDERABLES Performing Organization Address City/State/ZIP Code Phon e Number [facility] documented in this encounter Visit Diagnoses Not on filedocumented in this encounter Care Teams Inside Contractor Sales Relationship Specialty Start Date End Date Lurdes Thomas MD PCP - General Internal Medicine 06/11/14 12/16/20 documented as of this encounter
--- OUTSIDE RECORDS SUMMARY | 2022-01-25 10:23 | XMS_ITS | Encounter Summary ---
:1955 Author Organization [place] Address [address] [place] [address]. [place] [address] Care Team Providers Name Role Phone Lurdes Thomas MD Primary Care Provider [phone] Reason for Visit Reason Onset Date Comments Other 07/21/2014 Pt. needs letter Encounter Details Date Type Department Care Team Description 07/21/2014 Telephone [facility] Gonzalez Rowland Other (Pt . needs Neurosurgery Clinic MD Tylor letter) See XX RESIGNED XX [address] [facility] [address] [place] [address] [place] [address] [place] [address] [place] [address] [phone] Social History Tobacco Use Types Packs/Day Years [...] To discuss a letter he needs? Thanks PAPER TESTER documented in this encounter Plan of Treatment Not on filedocumented as of this encounter Visit Diagnoses Not on filedocumented in this encounter Care Teams Claim Auditor Relationship Specialty Start Date End Date Lurdes Thomas MD PCP - General Internal Medicine 06/11/14 12/16/20 documented as of this encounter
--- OUTSIDE RECORDS SUMMARY | 2022-01-25 10:23 | XMS_ITS | Encounter Summary ---
:1955 Author Organization [place] Address [address] [facility] [place] [address] Care Team Providers Name Role Phone Lurdes Thomas MD Primary Care Provider [phone] Encounter Details Date Type Department Care Team Description 07/08/2014 Medical Correspondence [facility], Non-Provider NEUROLOG Y-ORDER-2/ Health Info [facility] 11/2014 Srvcs [address] [place] [address] Social History Tobacco Use Types [...] on filedocumented in this encounter Care Teams Asset Availability Leader Relationship Specialty Start Date End Date Lurdes Thomas MD PCP - General Internal Medicine 06/11/14 12/16/20 documented as of this encounter
--- OUTSIDE RECORDS SUMMARY | 2022-01-25 10:23 | XMS_ITS | Encounter Summary ---
:1955 Author Organization [facility] Address [address] [facility] [place] [address] Care Team Providers Name Role Phone Lurdes Thomas MD Primary Care Provider [phone] Reason for Visit Auth/Cert - Closed Specialty Diagnoses / Procedures Referred By Contact Refer red To Contact Surgery Diagnoses PARKINSONS DISEASE Sh Periop Services Procedures IMPLANT PULSE GENERATOR SUBCUTANEOUS [address] [place] [address] Phone: Referral ID Status Reason Start Date Expiration Date Visits Requ ested Visits Authorized [id number] Closed 1 1 Encounter Details Date Type Department Care Team Description 09/16/2014 Hospital Encounter [facility] Gonzalez Rowland PreOP/Phase Liliam Snider II XX RESIGNED XX [address] [place] [address] [place] [address] [phone] Social History Tobacco Use Types Packs/Day Years [...] this encounter Discharge Summaries Arline Hutson APRN TRIAL MANAGER - 09/16/2014 8:46 AM CDT Physician Discharge Summary Patient ID: Andrew Pang [id number] 59 year old 1955 Admit date: 09/16/2014 Discharge date and time: 09/16/2014 Admitting Physician: Gonzalez Rowland MD Discharge Physician: Arline Hutson [facility] Admission Diagnoses: PARKINSONS DISEASE Discharge Diagnoses: [...] deep brain stimulator placement vitamin D (ERGOCALCIFEROL) 74708 UNIT capsule Take 1 capsule (50,000 Units) [...] Deep Brain Stimulator Postop Instructions Dr. Rowland [phone] 1. Ok to shower after 3 days. [...] have aDBS and the contact number for [employer] should be provided. ?? Some procedures require that the DBS system is turned off. [employer] can also instruct and guide regarding this. ?? You have been given a patient plc programmer that can check that the stimulator [...] Take 1 capsule 4 capsule 2 08/2602/12/2015 87210 UNIT (50,000 Units) by capsuleIndications: Vitamin mouth every 7 D deficiency disease days documented as of this encounter H&P Notes Corine Alexander - 09/11/2014 7:49 AM CDT The purpose of this note is to make the H&P performed in the clinic within the last 30 days available in the hospital surgical encounter. Source Note - Lurdes Thomas MD - 08/25/2014 12:38 PM CDT [address] [address] Dept: [phone] PRE-OP EVALUATION: Today's date: 08/25/2014 Andrew Pang (: 1955) presents for pre-operative evaluation assessment as requested by . He requires evaluation and anesthesia risk assessment prior to undergoing surgery/procedurefor treatment of Parkinson's . Proposed procedure: Deep brain stimulator implant Date of Surgery/ Procedure: 09/09& Time of Surgery/ Procedure: 529 Hospital/Surgical Facility: [facility] Primary Physician: Lurdes Thomas Type [...] evaluation report is provided to requesting physician. [facility] Preop Guidelines documented in this encounter Nursing [...] bilateral lead extensions SURGEON: Gonzalez Rowland MD Printing Plate Setter: Arline Hutson NP PROCEDURE: The patient was [...] Provider: Pavel Miner) Routine, 2 g, Intravenous, PRE-OP/PRE-IL OCEDURE, Starting on Mon09/16/14 at 0638, For [...] Post-procedure documented in this encounter Care Teams Laborer Tree Tapping Relationship Specialty Start Date End Date Lurdes Thomas MD PCP - General Internal Medicine 06/11/14 12/16/20 documented as of this encounter
--- OUTSIDE RECORDS SUMMARY | 2022-01-25 10:23 | XMS_ITS | Encounter Summary ---
:1955 Author Organization [place] Address [address] [facility] [place] [address] Care Team Providers Name Role Phone Lurdes Thomas MD Primary Care Provider [phone] Reason for Visit Auth/Cert - Closed Specialty Diagnoses / Procedures Referred By Contact Refer red To Contact Surgery Diagnoses PARKINSONS DISEASE Sh Periop Services Procedures IMPLANT PULSE GENERATOR SUBCUTANEOUS [address] [place] [address] Phone: Referral ID Status Reason Start Date Expiration Date Visits Requ ested Visits Authorized [id number] Closed 1 1 Encounter Details Date Type Department Care Team Description 09/16/[address] [facility] Jacquie Coughlin ANESTHESIOLOGY [address] [place] [id number] Simone PeriOP Ser Rogelio Gee MD [facility] ANESTHESIOLOGISTS [address] [place] [id number] [address] [place] [...] EXTENSION AND RIGHT INFRACLAVICULAR PULSE GENERATOR PLACEMENT ([employer]) Anesthesia type: General, ETT Post Op Diagnosis: [...] Arline Hutson APRN CNP vitamin D (ERGOCALCIFEROL) 59602 UNIT capsule Take 1 capsule (50,000 Units) [...] 1900 04/12/10 Lurdes Thomas MD No current [facility]-ordered facility-administered medications on file. No current Epic-ordered [...] results for input(s): INR in the last 02570 hours. Invalid input(s): APTT RECENT LABS: ECG: [...] benefits and alternatives discussed with: patient or textiles sales representative. . History & Physical Review [...] Intra-op documented in this encounter Care Teams Sander Portable Machine Relationship Specialty Start Date End Date Lurdes Thomas MD PCP - General Internal Medicine 06/11/14 12/16/20 documented as of this encounter
--- OUTSIDE RECORDS SUMMARY | 2022-01-25 10:23 | XMS_ITS | Encounter Summary ---
:1955 Author Organization [place] Address [address] [place] [address]. [place] [address] Care Team Providers Name Role Phone Lurdes Thomas MD Primary Care Provider [phone] Reason for Visit Reason Comments Pre-Op Exam Encounter Details Date Type Department Care Team Description 08/25/2014 Office Visit [facility] Lurdes Thomasop gen eral physical exam (Primary Dx); Uzair Laughlin MD Parkinson disease (H); [address] [place] Bilateral leg edema; [place] [address] [place] Leg swelling; [phone] 86[address] [facility] Vitamin D deficiency disease [address] [place], [place] [address] Social History Tobacco Use [...] Thomas MD - 08/25/2014 12:38 PM CDT [address] [address] Dept: [phone] PRE-OP EVALUATION: Today's date: 08/25/2014 Andrew Pang (: 1955) presents for pre-operative evaluation assessment as requested by . He requires evaluation and anesthesia risk assessment prior to undergoing surgery/procedurefor treatment of Parkinson's . Proposed procedure: Deep brain stimulator implant Date of Surgery/ Procedure: 09/09& Time of Surgery/ Procedure: 529 Hospital/Surgical Facility: [facility] Primary Physician: Lurdes Thomas Type of [...] cardiovascular risks for perioperative complications such as (SD, PE, VFib and 3?? AV Block): No [...] D 25 (L) 30 - 75 [facility] ug/L MD MEDICAL [facility] Comment: Season, race, dietary intake, and treatm ent affect the concentration of 07-abxphsf-Fenkmgv D. Values may decrea se during winter [...] Organization Address City/State/ZIP Code Phon e Number [facility] [address] [place] [address] [facility] (ABNORMAL) Basic metabolic panel (08/25/2014 1:08 PM CDT) Analysis Performed At [facility] logist Time Signature Sodium 137 133 - 144 [place] mmol/L [facility] Potassium 3.5 3.4 - 5.3 [place] mmol/L [facility] Chloride 100 94 - 109 [place] mmol/L [facility] Carbon Dioxide 28 20 - 32 [place] mmol/L [facility] Anion Gap 9 3 - 14 [place] mmol/L [facility] Glucose 132 (H) 70 - 99 [place] mg/dL [facility] Comment: Effective 12/18/2013, the reference range for this assay has changed to reflect new instrumentation/methodology. Urea Nitrogen 18 7 - 30 mg/dL [facility] Comment: Effective 12/18/2013, the reference range for this assay has changed to reflect new instrumentation/methodology. Creatinine 0.77 0.66 - 1.25 [facility] mg/dL [facility] GFR Estimate >90 >60 mL/min/1.7m2 [facility] Non GFR Calc [facility] GFR Estimate If Black >90 >60 mL/min/1.7m2 [facility] GFR Calc [facility] Calcium 9.3 8.5 - 10.1 mg/dL [facility] [...] Address City/State/ZIP Code Phon e Number [facility] [address] [place] [address] documented in this encounter Visit Diagnoses Diagnosis Preop general physical exam - Primary Other specified pre-operative examinatio n Parkinson disease (H) Paralysis agitans Bilateral leg edema Edema Leg swelling Swelling of limb Vitamin D deficiency disease Unspecified vitamin D deficiency documented in this encounter Care Teams Research And Development Scientist Relationship Specialty Start Date End Date Lurdes Thomas MD PCP - General Internal Medicine 06/11/14 12/16/20 documented as of this encounter
--- OUTSIDE RECORDS SUMMARY | 2022-01-25 10:23 | XMS_ITS | Encounter Summary ---
:1955 Author Organization [place] Address [address] [facility] [place] [address] Care Team Providers Name Role Phone Lurdes Thomas MD Primary Care Provider [phone] Reason for Visit (Routine) - Closed Specialty Diagnoses / Procedures Referred By Contact Refer red To Contact Radiology / Radiology. Diagnoses R#NA, BC, Epic Order Sh Mri Procedures MR BRAIN WWO [address] [place] [address] Phone: Referral ID Status Reason Start Date Expiration Date Visits Requ ested Visits Authorized [id number] Closed 07/28/2014 07/28/2015 1 1 Encounter Details Date Type Department Care Team Description 08/26/2014 Hospital Encounter [facility] Rachel Cuadra rkinson's disease [facility] Imaging Lm, SEAMARK ADVANCED OPERATOR MAINTAINER TIMBER TREATING TANK OPERATOR (H) [address] [place] [address] ORTHOPEDICS [phone] [place], [place] [address] Social History Tobacco Use Types Packs/Day Years [...] Take 1 capsule 4 capsule 2 08/2602/12/2015 55580 UNIT (50,000 Units) by capsuleIndications: Vitamin mouth [...] planning purposes. COMPARISON: Diagnostic brain MRI from [facility] 05/26/2014. FINDINGS: The ventricles are normal in [...] planning purposes. COMPARISON: Diagnostic brain MRI from [facility] 05/26/2014. FINDINGS: The ventricles are normal in s ize. There is no midline shift. There are no extra-axial fluid co llections. There is no evidence for intracranial hemorrhage. IMPRESSION IMPRESSION: Treatment planning brain MRI images with no evidence for acute intracranial pathology. BETTY CLOUD MD Rachel Cuadra SEAMARK ADVANCED OPERATOR MAINTAINER TIMBER TREATING TANK OPERATOR IMG MRI ORDERABLES documented in this encounter [...] MRI. documented in this encounter Care Teams Roller Coaster Designer Relationship Specialty Start Date End Date Lurdes Thomas MD PCP - General Internal Medicine 06/11/14 12/16/20 documented as of this encounter
--- OUTSIDE RECORDS SUMMARY | 2022-01-25 10:23 | XMS_ITS | Encounter Summary ---
:1955 Author Organization [place] Address [address] [place] [address] Care Team Providers Name Role Phone Lurdes Thomas MD Primary Care Provider [phone] Encounter Details Date Type Department Care Team Description 09/03/2014 Medical Correspondence [facility] FELICE Hernández KATHY [facility], Non-Provider MD-ORDER -09/03/2014 Health Info [facility] [address] [facility] [address] [place] [address] Social History Tobacco Use Types [...] on filedocumented in this encounter Care Teams Laborer Steel Handling Relationship Specialty Start Date End Date Lurdes Thomas MD PCP - General Internal Medicine 06/11/14 12/16/20 documented as of this encounter
--- OUTSIDE RECORDS SUMMARY | 2022-01-25 10:23 | XMS_ITS | Encounter Summary ---
:1955 Author Organization [place] Address [address] [place] [address]. [place] [address] Care Team Providers Name Role Phone Lurdes Thomas MD Primary Care Provider [phone] Reason for Visit Reason Onset Date [facility] Hospital F/U 09/11/2014 Parkinsons Disease, S/P Deep Brain Stimulator Placement, S/P Deep Brain Stimulato r Placement, 09/10/14, 0 Encounter Details Date Type Department Care Team Description 09/11/2014 Telephone [facility] F/U 1440 [facility] MD [place] (Parkinsons Disease, [place] [address] [facility] S/P Deep Brain [phone] [place] Stimulator Placement, [address] [facility] S/P Deep B rain Stimulator Placement, [place], [place] [address] 09/10/14, 0 ) [phone] (Wo rk) Social History Tobacco Use Types [...] with information to call me back. Maggie x ray equipment tester Nurse Telephone Encounter - Kiara Oviedo RN - 09/11/2014 12:52 PM CDT ED / Discharge Outreach Protocol Patient Contact Attempt # 1 Was call answered? No. Left message on voicemail with information to call me back. Telephone Encounter - Josy Garza - 09/11/2014 10:53 AM CDT Please contact patient for In-patient follow up. [phone] (home) None (work) Visit date: 09/10/14 Diagnosis listed:Parkinsons Disease, S/P Deep Brain Stimulator Placement, S/P Deep Brain Stimulator Placement Number of visits in past 12 months:0/1 documented in this encounter Plan of Treatment Not on filedocumented as of this encounter Visit Diagnoses Not on filedocumented in this encounter Care Teams Pad Machine Feeder Relationship Specialty Start Date End Date Lurdes Thomas MD PCP - General Internal Medicine 06/11/14 12/16/20 documented as of this encounter
--- OUTSIDE RECORDS SUMMARY | 2022-01-25 10:23 | XMS_ITS | Encounter Summary ---
:1955 Author Organization [place] Address [address] [facility] [place] [address] Care Team Providers Name Role Phone Lurdes Thomas MD Primary Care Provider [phone] Encounter Details Date Type Department Care Team Description 09/18/2014 Documentation Only [facility] MD See [place] XX RESIGNED XX [address] [facility] out [address] [facility] [address] [place] [address] [place] [address] [phone] Social History Tobacco Use Types Packs/Day Years [...] is because it would provide him with xgaink-ven-zzyem control of his motor symptoms, which would [...] on filedocumented in this encounter Care Teams Stripper Shovel Operator Relationship Specialty Start Date End Date Lurdes Thomas MD PCP - General Internal Medicine 06/11/14 12/16/20 documented as of this encounter
--- OUTSIDE RECORDS SUMMARY | 2022-01-25 10:23 | XMS_ITS | Encounter Summary ---
:1955 Author Organization [place] Address [address] [facility] [place] [address] Care Team Providers Name Role Phone Lurdes Thomas MD Primary Care Provider [phone] Reason for Visit Reason Comments Neurologic Problem Staple Removal Encounter Details Date Type Department Care Team Description 09/22/2014 Office Visit [facility] Rachel Cuadra, GREEN BUILDING ENGINEER CALENDER LET OFF HELPER [facility] [address] [place] [address] S/P deep brain Neurosurgery Clinic Arline Peñaloza, MARISOL CALENDER LET OFF HELPER [address] [place] [address] stimulator placement Vivian (Primary Dx) [address] [address] Social History Tobacco Use Types [...] swelling. [facility] [place] [address] Pager [phone] Mony Meraz 09/22/2014 10:30 AM CDT Andrew [...] imary documented in this encounter Care Teams Buffing Machine Tender Relationship Specialty Start Date End Date Lurdes Thomas MD PCP - General Internal Medicine 06/11/14 12/16/20 documented as of this encounter
--- OUTSIDE RECORDS SUMMARY | 2022-01-25 10:24 | XMS_ITS | Encounter Summary ---
:1955 Author Organization [facility] Address [address] [place] [address]. [place] [address] Care Team Providers Name Role Phone Lurdes Thomas MD Primary Care Provider [phone] Reason for Visit Reason Onset Date Comments Refill Request 04/11/2011 pravastatin Encounter Details Date Type Department Care Team Description 04/11/2011 Refill [facility] Eag Lurdes Rojas Refill Request 1440 [facility] MD [place] (pravastatin) [place] [address] [facility] [phone] [address] (Wo rk) Social History Tobacco Use [...] labs letter sent. Received refill request from [facility] for pravastatin. Last Office Visit R/T [...] comparison chart: [facility] CoA REDUCTASE INHIBITORS (STATINS) ERNAIL SCULPTOR documented in this encounter Plan of Treatment Not on filedocumented as of this encounter Visit Diagnoses Diagnosis Hyperlipidemia LDL goal < 130 - Primary Other and unspecified hyperlipidemia documented in this encounter Care Teams Biostatistics Professor Relationship Specialty Start Date End Date Lurdes Thomas MD PCP - General Internal Medicine 04/12/10 04/03/13 documented as of this encounter
--- OUTSIDE RECORDS SUMMARY | 2022-01-25 10:24 | XMS_ITS | Encounter Summary ---
:1955 Author Organization [facility] Address [address] [place] [address]. [place] [address] Care Team Providers Name Role Phone Lurdes Thomas MD Primary Care Provider [phone] Reason for Visit Reason Onset Date Comments Refill Request 06/08/2012 pravastatin Encounter Details Date Type Department Care Team Description 06/08/2012 Refill [facility] E[facility] Lurdes Rojas Refill Request 1440 [facility] MD [place] (pravastatin) [place] [address] [facility] [phone] [address] (Wo rk) Social History [...] mailed to schedule appointment. Jeannine Waldron RN T METAL SUPERINTENDENT Telephone Encounter - Jeannine Waldron - 06/08/2012 1:33 PM CST Med requested: pravastatin Last office visit: 07/27/11 BP Readings from Last 1 Encounters: 10/25/11 104/66 Last pertinent lab: CHOL 236 07/27/2011 HDL 60 07/27/2011 LDL 152 07/27/2011 TRIG 121 07/27/2011 CHOLHDLRATIO 3.9 07/27/2011 AST 35 07/27/2011 ALT 20 07/27/2011 Jeannine Waldron RN T METAL SUPERINTENDENT documented in this encounter Plan of Treatment Not on filedocumented as of this encounter Visit Diagnoses Diagnosis Hyperlipidemia LDL goal < 130 - Primary Other and unspecified hyperlipidemia documented in this encounter Care Teams Principal Cyber Engineer Relationship Specialty Start Date End Date Martha, Lurdes Laughlin MD PCP - General Internal Medicine 04/12/10 04/03/13 documented as of this encounter
--- OUTSIDE RECORDS SUMMARY | 2022-01-25 10:24 | XMS_ITS | Encounter Summary ---
:1955 Author Organization [facility] Address [address] [place] [address]. [place] [address] Care Team Providers Name Role Phone Lurdes Thomas MD Primary Care Provider [phone] Reason for Visit Reason Onset Date Comments Lab Result Notice 07/28/2011 Encounter Details Date Type Department Care Team Description 07/28/2011 Telephone [facility] Eag an Lurdes Thomas Lab Result Notice 1440 [facility] [place] [address] [facility] [phone] [address] (Wo rk) Social History [...] Lurdes Laughlin MD - 07/28/2011 9:25 PM NET DEVELOPER SOFTWARE ENGINEER C LDL not at goal, needs increased dose. Lurdes Laughlin MD Internal Medicine/Pediatrics DEVELOPER SOFTWARE ENGINEER C documented in this encounter Plan of Treatment Not on filedocumented as of this encounter Visit Diagnoses Diagnosis Hyperlipidemia LDL goal < 130 - Primary Other and unspecified hyperlipidemia documented in this encounter Care Teams Employee Welfare Manager Relationship Specialty Start Date End Date Lurdes Thomas MD PCP - General Internal Medicine 04/12/10 04/03/13 documented as of this encounter
--- OUTSIDE RECORDS SUMMARY | 2022-01-25 10:24 | XMS_ITS | Encounter Summary ---
:1955 Author Organization [place] Address [address] [facility] [place] [address] Care Team Providers Name Role Phone Lurdes Thomas MD Primary Care Provider [phone] Reason for Visit (Routine) - Closed Specialty Diagnoses / Procedures Referred By Contact Refer red To Contact Radiology / Radiology. Procedures Nuclear Medicine [place] [facility]AN[facility] [address] [place] [address] Phone: Fax: Referral ID Status Reason Start Date Expiration Date Visits Requ ested Visits Authorized [id number] Closed 06/20/2014 12/17/2014 1 1 Encounter Details Date Type Department Care Team Description 06/25/2014 Hospital Encounter [facility] Lurdes Thomas MD [address] [facility] [address] [address] [facility] [phone] [place], [place] [address] (Wo rk) Social History [...] Take 1 capsule 8 capsule 0 06/1208/01/2014 25794 UNIT (50,000 Units) by capsuleIndications: mouth every [...] (shortness of Resu lts for this LEXISCAN GLASS FINISHER breath) procedure are i n the results section. documented in this encounter Visit Diagnoses Not on filedocumented in this encounter Care Teams Retail Support Manager Relationship Specialty Start Date End Date Lurdes Thomas MD PCP - General Internal Medicine 06/11/14 12/16/20 documented as of this encounter
--- OUTSIDE RECORDS SUMMARY | 2022-01-25 10:24 | XMS_ITS | Encounter Summary ---
:1955 Author Organization [place] Address [address] [place] [address]. [place] [address] Care Team Providers Name Role Phone Lurdes Thomas MD Primary Care Provider Reason for Visit (Routine) - Closed Specialty Diagnoses / Procedures Referred By Contact Refer red To Contact Respiratory Therapy Diagnoses Hgb 15.4 drawn on 06/11/14 Rh Respiratory Ther Procedures PULMONARY FUNCTION TEST [address] [place] [address] Phone: Referral ID Status Reason Start Date Expiration Date Visits Requ ested Visits Authorized [id number] Closed 07/04/2014 07/04/2015 1 1 Encounter Details Date Type Department Care Team Description 07/08/2014 Hospital Encounter [facility] Lurdes Riosinson disease (H); Tere Laughlin MD SOB (shortness of breath) Therapy [facility] [address] [place], [place] [address] [place] [address] [phone] [place] [address] Social History Tobacco Use Types [...] Take 1 capsule 8 capsule 0 06/1208/01/2014 84080 UNIT (50,000 Units) by capsuleIndications: mouth every 7 days Vitamin D deficiency for 8 doses disease pravastatin (PRAVACHOL) 80 Take 1 tablet by 90 tablet 3 06/201208/20/2014 MG tabletIndications: mouth daily. Hyperlipidemia LDL goal < 130 documented as of this encounter Progress Notes [...] 06/11/14. July 08, 2014.12:39 PM Shemar Hoang CCO SORTER documented in this encounter Procedure Notes Juice Chanel MD - 07/09/2014 1:16 PM CSTAssociated Order(s): PULMONARY FUNCTION TEST Please see medical chart for graphs and statistics related to this report. REFERRING PHYSICIAN: Deidre Pang ANIMAL GENETICIST: Shemar Hoang DIAGNOSIS: SOB, Parkinson's disease HEIGHT: [...] CHANEL MD MT: Name: DEIDRE PANG Account: [id number] : 1955 Procedure Date: 07/08/2014 Document: [id number] cc: Lurdes Thomas MD documented in this encounter Plan of Treatment Pending Results Name Type Priority Associated Diagnoses Date/Ti me PULMONARY FUNCTION TEST PFT Routine Parkinso n disease (H) 07/08/2014 11:58 AM TOBACCO SORTER PROCEDURE SOB (shortness of breath) documented as of this encounter Procedures Procedure Name Priority Date/Time Associated Diagnosis Comme nts PFT GENERAL LAB 07/28/2014 1:58 PM Result s for this TESTING CDT procedure are i n the results section. PFT GENERAL LAB Routine 07/08/2014 11:58 AM Parkinson disease TESTING TOBACCO SORTER (H) SOB (shortness of breath) PULMONARY FUNCTION 07/08/2014 12:00 AM TEST - HIM SCAN TOBACCO SORTER documented in this encounter Results PULMONARY FUNCTION TEST (07/28/2014 1:58 PM CDT) Transcriptions Juice Chanel MD - 07/09/2014 1:16 PM CST Please see medical chart for graphs and statistics related to this report. REFERRING PHYSICIAN: Deidre Pang ANIMAL GENETICIST: Shemar Hoang DIAGNOSIS: SOB, Parkinson's disease HEIGHT: [...] CHANEL MD MT: Name: DEIDRE PANG Account: [id number] : 1955 Procedure Date: 07/08/19 Document: [id number] cc: Lurdes Thomas MD Juice Chanel MD PFT ORDERABLES PULMONARY FUNCTION TEST - HIM SCAN (07/08/2014 12:00 AM TOBACCO SORTER) Specimen (Source) Anatomical Location Collection Method / Collectio n Time Received Time / Laterality Volume 07/08/2014 Narrative This result has an attachment that is no t available. Provider Scan PFT ORDERABLES documented in this encounter Visit Diagnoses Diagnosis Parkinson disease (H) Paralysis agitans SOB (shortness of breath) Shortness of breath documented in this encounter Care Teams Income Tax Expert Relationship Specialty Start Date End Date Ludres Thomas MD PCP - General Internal Medicine 06/11/14 12/16/20 documented as of this encounter
--- OUTSIDE RECORDS SUMMARY | 2022-01-25 10:24 | XMS_ITS | Encounter Summary ---
:1955 Author Organization [place] Address [address] [place] [address]. [place] [address] Care Team Providers Name Role Phone Lurdes Thomas MD Primary Care Provider Reason for Visit Reason Onset Date Comments Back Pain 07/11/2011 3 day follow up Encounter Details Date Type Department Care Team Description 07/11/2011 Refill [facility] Lurdes Oh Back Pain (3 day follow 1440 [facility] MD [place] up) [place] [address] [facility] [phone] [address] (Wo rk) Social History [...] to correct posture; stop aggravating activities. ?? Xbhe-rqt-heldnpk pain medications for short term symptom control. [...] provider immediately. Medications for Pain Relief Recommended jygf-xxx-ngnxeyw non-steroidal anti-inflammatories: Ibuprofen (Advil, Motrin) 600 mg. [...] this several times a day. Developed by [employer] Published by [employer]. Last modified: 2008-06-29 Last reviewed: 2007-11-26 This content is reviewed periodically and is subject to change as new health information becomes available. The information is intended to inform and educate and is not a replacement for medical evaluation, advice, diagnosis or treatment by a healthcare professional. Adult Health Advisor 2009.1 Index Adult Health Advisor 2009.1 Credits ?? 2009 [facility] and/or its affiliates. All Rights Reserved. APEUTIC ASSISTANT documented in this encounter Miscellaneous Notes Telephone [...] of plan and is agreeable. Blanca Brandt APEUTIC ASSISTANT Telephone Encounter - Blanca Brandt - 07/11/2011 10:18 AM CST Called and spoke with patient and informed of message from Dr. Laughlin below. Mailed back exercises.Patient is wanting to hold off on physical therapy at this time. Kristina Brandt RN APEUTIC ASSISTANT Telephone Encounter - Nathalia Galvan - 07/11/2011 9:50 AM CST Called and LM for pt with message below. Nathalia Galvan MA APEUTIC ASSISTANT Telephone Encounter - Lurdes Laughlin MD - 07/11/2011 9:08 AM THERAPEUTIC ASSISTANT Ibuprofen or naproxen are ok. Flexeril has potential interaction with azilect. I changed muscle relaxant to methocarbamol (robaxin) and sent to pharmacy. This also may make him sleepy. Please let patient know. Thanks, Lurdes Laughlin MD Internal Medicine/Pediatrics APEUTIC ASSISTANT Telephone Encounter - Blanca Brandt - 07/11/2011 8:32 AM CST Images from the original note were not included. Patient calls stating he was bending over to clean [employer] box yesterday morning and had back pain. He is leaving for [place] for work this afternoon. Wants to make [...] to correct posture; stop aggravating activities. ?? Yanz-vge-iwgsfwn pain medications for short term symptom control. [...] provider immediately. Medications for Pain Relief Recommended pcsd-qdo-hexhkdx non-steroidal anti-inflammatories: Ibuprofen (Advil, Motrin) 600 mg. [...] this several times a day. Developed by [employer] Published by [employer]. Last modified: 2008-06-29 Last reviewed: 2007-11-26 This content is reviewed periodically and is subject to change as new health information becomes available. The information is intended to inform and educate and is not a replacement for medical evaluation, advice, diagnosis or treatment by a healthcare professional. Adult Health Advisor 2009.1 Index Adult Health Advisor 2009.1 Credits ?? 2009 [facility] and/or its affiliates. All Rights Reserved. APEUTIC ASSISTANT documented in this encounter Plan of Treatment Not on filedocumented as of this encounter Visit Diagnoses Diagnosis Back muscle spasm - Primary Other symptoms referable to back documented in this encounter Care Teams Jewel Cupping Machine Operator Relationship Specialty Start Date End Date Lurdes Thomas MD PCP - General Internal Medicine 04/12/10 04/03/13 documented as of this encounter
--- OUTSIDE RECORDS SUMMARY | 2022-01-25 10:24 | XMS_ITS | Encounter Summary ---
:1955 Author Organization [place] Address [address] [facility] [place] [address] Care Team Providers Name Role Phone Lurdes Thomas MD Primary Care Provider [phone] Reason for Visit (Routine) - Closed Specialty Diagnoses / Procedures Referred By Contact Refer red To Contact Radiology / Radiology. Procedures Nuclear Medicine NM MPI WITH LEXISCAN [address] [place] [address] Phone: Fax: Referral ID Status Reason Start Date Expiration Date Visits Requ ested Visits Authorized [id number] Closed 06/20/2014 12/17/2014 1 1 Encounter Details Date Type Department Care Team Description 06/25/2014 Hospital Encounter [facility] Lurdes Thomas MD [address] [facility] [address] 8675 [facility] [phone] [place], [place] [address] (Wo rk) Social History [...] Take 1 capsule 8 capsule 0 06/1208/01/2014 86864 UNIT (50,000 Units) by capsuleIndications: mouth every [...] (shortness of Resu lts for this LEXISCAN TRAVEL CLERK breath) procedure are i n the results section. documented in this encounter Visit Diagnoses Not on filedocumented in this encounter Administered Medications Inactive Administered Medications - up to 3 most recent administrations Medication Order MAR Action Action Date Dose Rate Site technetium Tc 99m tetrofosmin 2UD Given 06/25/2014 1:04 PM TRAVEL CLERK 3 0 mCi study (MYOVIEW) radioisotope injection 3-42 mCi 3-42 mCi, Intravenous, EVERY 2 HOURS, First dose on Mon06/25/14 at 1015, For 2 doses, Radioisotope, supplied by and administered by Nuclear Medicine. *HW* Given 06/25/2014 10:09 AM TRAVEL CLERK 10.4 mCi documented in this encounter Care Teams Junior Assistant Manager Relationship Specialty Start Date End Date Lurdes Thomas MD PCP - General Internal Medicine 06/11/14 12/16/20 documented as of this encounter
--- OUTSIDE RECORDS SUMMARY | 2022-01-25 10:24 | XMS_ITS | Encounter Summary ---
:1955 Author Organization [place] Address [address] [place] [address]. [place] [address] Care Team Providers Name Role Phone Lurdes Thomas MD Primary Care Provider [phone] Reason for Visit Reason Onset Date Comments Musculoskeletal Problem 07/13/2010 Muscle aches and weakness Encounter Details Date Type Department Care Team Description 07/13/2010 Telephone [facility] Lurdes Thomas Musculosk eletal Problem Uzair Laughlin MD (Muscle aches and [address] weakness) [place] [address] [place] [phone] 8675 [place], [place] [address] Social History Tobacco Use [...] - Lurdes Laughlin - 07/16/2010 12:46 PM SERVICE UNIT OPERATOR Called and discussed with patient. Previously on [...] be evaluated. Lurdes Laughlin MD Internal Medicine/Pediatrics ICE UNIT OPERATOR Telephone Encounter - Lurdes Laughlin - 07/15/2010 4:14 PM SERVICE UNIT OPERATOR Attempted again to call pt and at home and on cell. Left a message on cell. Asked pt to call or willtry back tomorrow. Lurdes Laughlin MD Internal Medicine/Pediatrics ICE UNIT OPERATOR Telephone Encounter - Lurdes Laughlin - 07/15/2010 12:41 PM SERVICE UNIT OPERATOR Attempted to call patient to follow-up. Left a message at home. Will call back later. Lurdes Laughlin MD Internal Medicine/Pediatrics ICE UNIT OPERATOR Telephone Encounter - Lurdes Laughlin - 07/13/2010 3:38 PM SERVICE UNIT OPERATOR Agree with the above. Ok for trial off simvastatin, but should also talk with Neurologist. II will call Andrew on . Thanks! Lurdes Laughlin MD Internal Medicine/Pediatrics ICE UNIT OPERATOR Telephone Encounter - Maik Major - 07/13/2010 2:15 PM CST , [...] be reached until . 's number is [phone]. Maame Major RN ICE UNIT OPERATOR documented in this encounter Plan of Treatment Not on filedocumented as of this encounter Visit Diagnoses Not on filedocumented in this encounter Care Teams Surface Boss Relationship Specialty Start Date End Date Lurdes Thomas MD PCP - General Internal Medicine 04/12/10 04/03/13 documented as of this encounter
--- OUTSIDE RECORDS SUMMARY | 2022-01-25 10:24 | XMS_ITS | Encounter Summary ---
:1955 Author Organization [place] Address [address] [facility] [place] [address] Care Team Providers Name Role Phone Lurdes Thomas MD Primary Care Provider [phone] Reason for Visit (Routine) - Closed Specialty Diagnoses / Procedures Referred By Contact Refer red To Contact Radiology / Radiology. Procedures Nuclear Medicine NM INJ [address] [place] [address] Phone: Fax: Referral ID Status Reason Start Date Expiration Date Visits Requ ested Visits Authorized [id number] Closed 06/20/2014 06/20/2015 1 1 Encounter Details Date Type Department Care Team Description 06/25/2014 Hospital Encounter [facility] Lurdes Thomas MD [address] [facility] [address] 8675 [facility] [phone] [place], [place] [address] (Wo rk) Social History [...] Take 1 capsule 8 capsule 0 06/1208/01/2014 53084 UNIT (50,000 Units) by capsuleIndications: mouth every [...] (shortness of Resu lts for this LEXISCAN SHIPPING SUPERVISOR breath) procedure are i n the results section. documented in this encounter Visit Diagnoses Not on filedocumented in this encounter Care Teams Computer Numeric Control Setter Relationship Specialty Start Date End Date Lurdes Thomas MD PCP - General Internal Medicine 06/11/14 12/16/20 documented as of this encounter
--- OUTSIDE RECORDS SUMMARY | 2022-01-25 10:24 | XMS_ITS | Encounter Summary ---
:1955 Author Organization [place] Address [address] [place] [address]. [place] [address] Care Team Providers Name Role Phone Lurdes Thomas MD Primary Care Provider Reason for Visit Reason Onset Date Comments Chronic Care Conference Provider Overview 12/29/2010 Encounter Details Date Type Department Care Team Description 12/29/2010 Telephone [facility] Lurdes Oh Chronic Care Conference [address] [facility] MD [place] Provider Overview [place] [address] [facility] [phone] [address] (Wo rk) Social History [...] on filedocumented in this encounter Care Teams Php Mysql Web Developer Relationship Specialty Start Date End Date Lurdes Thomas MD PCP - General Internal Medicine 04/12/10 04/03/13 documented as of this encounter
--- OUTSIDE RECORDS SUMMARY | 2022-01-25 10:24 | XMS_ITS | Encounter Summary ---
:1955 Author Organization [place] Address [address] [place] [address]. [place] [address] Care Team Providers Name Role Phone Oli Thomas MD Primary Care Provider [phone] Reason for Visit Reason Comments Breathing Problem Encounter Details Date Type Department Care Team Description 06/11/2014 Office Visit [facility] Oli Thomas SOB (shor tness of breath) (Primary Dx); Uzair Laughlin MD Fatigue; [address] Vitamin D deficiency disease ; [place] [address] [place] Lower extremity edema; [phone] 8[address] [facility] GERD (ghazala roesophageal reflux disease) [place], [place] [address] Social History Tobacco Use [...] Comments Blood Pressure 114/70 06/11/2014 8:04 AM JACK SETTER Pulse 99 06/11/2014 8:04 AM JACK SETTER Temperature 36.9 ??C (98.5 ??F) 06/11/2014 8:04 AM JACK SETTER Respiratory Rate - - Oxygen Saturation 94% 06/11/2014 8:04 AM JACK SETTER Inhaled Oxygen Concentration - - Weight 95.6 kg (210 lb 12.8 oz) 06/11/2014 8:04 AM JACK SETTER Height 186.7 cm (6' 1.5) 06/11/2014 8:04 AM JACK SETTER Body Mass Index 27.43 06/11/2014 8:04 AM JACK SETTER documented in this encounter Patient Instructions Patient InstructionsSerumOli MD - 06/11/2014 9:03 AM JACK SETTER 1. Labs today: liver function, kidney function, blood counts, vitamin D levels 2. You will be contacted to set up the stress test and echocardiogram (ultrasound) of the heart SETTER documented in this encounter Progress Notes Oli [...] likely in July. Insurance recently changed [facility]. [facility] at [facility] last year. Reviewed labs in care [...] with Provider - [address] [facility] UZAIR SETTER documented in this encounter Nursing Notes Tamy [...] using cuff size: large Tamy Leahy LPN SETTER documented in this encounter Miscellaneous Notes Addendum Note - Oli Thomas MD - 06/12/2014 4:46 PM JACK SETTER Addended by: OLI THOMAS on: 06/12/2014 04:46 PM Modules accepted: Orders SETTER documented in this encounter Plan of Treatment Not on filedocumented as of this encounter Procedures Procedure Name Priority Date/Time Associated Comments Diagnosis CBC WITH PLATELETS & Routine 06/11/2014 9:05 AM SOB (shortness of Results for this DIFFERENTIAL JACK SETTER breath) procedure are in Fatigue the results section. VITAMIN D DEFICIENCY Routine 06/11/2014 9:05 AM Vitamin D R esults for this SCREENING JACK SETTER deficiency disease procedure are in the results section. COMPREHENSIVE Routine 06/11/2014 9:05 AM SOB (shortness of Res ults for this METABOLIC PANEL JACK SETTER breath) procedure are in Fatigue the results Lower extremity section. edema EKG 12-LEAD COMPLETE Routine 06/11/2014 SOB (shortness of Re sults for this W/READ - CLINICS breath) procedure a re in the results section. documented in this encounter Results NM Lexiscan stress test (06/25/2014 1:06 PM JACK SETTER) Anatomical Region Laterality Modality Chest Nuclear Medicine Specimen (Source) Anatomical Location Collection Method / Collectio n Time Received Time / Laterality Volume Narrative 06/26/2014 10:06 AM JACK SETTER GATED MYOCARDIAL PERFUSION SCINTIGRAPHY WITH INTRAVENOUS PHARMACOLOGIC [...] (ABNORMAL) Vitamin D Deficiency (06/11/2014 9:05 AM JACK SETTER) P athologist Signature Vitamin D 21 (L) 30 - 75 [facility] Deficiency ug/L [place] MEDICAL screening [facility] Comment: Season, race, dietary intake, and treatm ent affect the concentration of 42-wqymknf-Jxcxnqe D. Values may decrea se during winter [...] specimen 06/11/2014 9:05 AM 015 9:07 (specimen) JACK SETTER AM JACK SETTER Oli Thomas MD LAB - BLOOD ORDERABLES Performing Organization Address City/State/ZIP Code Phon e Number [address] [address] [facility] CBC with platelets differential (06/11/2014 9:05 AM JACK SETTER) [facility] gist Method Time Signature WBC 4.8 4.0 - [facility] 11.0 CLINICS 10e9/L UZAIR RBC Count 5.06 4.4 - 5.9 [facility] 10e12/L [facility] Hemoglobin 15.4 13.3 - [facility] 17.7 g/dL [facility] Hematocrit 46.8 40.0 - [facility] 53.0 % CL[facility] MCV 93 78 - 100 [place] fl [facility]INICS [facility] MCH 30.4 26.5 - [facility] 33.0 pg CLINICS [facility] MCHC 32.9 31.5 - [facility] 36.5 g/dL CLINICS [facility] RDW 12.7 10.0 - [facility] 15.0 % [facility] Platelet Count 205 150 - 450 [facility] 10e9/L [facility] Diff Method Automated [place] Method [facility] % Neutrophils 55.7 % [place] [facility] U[facility] % Lymphocytes 32.6 % [place] [facility] U[facility] % Monocytes 9.8 % [place] [facility] U[facility] % Eosinophils 1.5 % [place] [facility] % Basophils 0.4 % [place] [facility] Absolute 2.7 1.6 - 8.3 [facility] Neutrophil 10e9/L [facility] Absolute 1.6 0.8 - 5.3 [facility] Lymphocytes 10e9/L [facility] Absolute 0.5 0.0 - 1.3 [facility] Monocytes 10e9/L [facility] Absolute 0.1 0.0 - 0.7 [facility] Eosinophils 10e9/L [facility] Absolute 0.0 0.0 - 0.2 [facility] Basophils 10e9/L [facility] U[facility] Specimen Anatomical Collection Method Collection Time Receive d Time (Source) Location / / Volume Laterality Blood specimen 06/11/2014 9:05 AM 015 9:07 (specimen) JACK SETTER AM JACK SETTER Oli Thomas MD LAB - BLOOD ORDERABLES Performing Organization Address City/State/ZIP Code Phon e Number [facility] UZAIR [address] [place] [address] (ABNORMAL) Comprehensive metabolic panel (06/11/2014 9:05 AM JACK SETTER) Analysis Performed At [facility] logis Time Signature Sodium 139 133 - 144 [place] mmol/L [facility] Potassium 4.7 3.4 - 5.3 [place] mmol/L [facility] Chloride 104 94 - 109 [place] mmol/L [facility] Carbon Dioxide 31 20 - 32 [place] mmol/L [facility] Anion Gap 4 3 - 14 [place] mmol/L [facility] Glucose 102 (H) 70 - 99 [place] mg/dL [facility] Comment: Effective 12/18/2013, the reference range for this assay has changed to reflect new instrumentation/methodology. Urea Nitrogen 21 7 - 30 mg/dL [place] [facility] I[facility] Comment: Effective 12/18/2013, the reference range for this assay has changed to reflect new instrumentation/methodology. Creatinine 0.82 0.66 - 1.25 [facility] mg/dL [facility] GFR Estimate >90 >60 mL/min/1.7m2 [facility] Non GFR Calc [facility] GFR Estimate If Black >90 >60 mL/min/1.7m2 F [facility] GFR Calc BLOO [facility] Calcium 9.1 8.5 - 10.1 mg/dL [place] [facility] Comment: Effective 12/18/2013, the reference range for this assay has changed to reflect new instrumentation/methodology. Bilirubin Total 0.6 0.2 - 1.3 mg/dL [facility] Albumin 4.1 3.4 - 5.0 g/dL [facility] S [facility] Protein Total 7.5 6.8 - 8.8 g/dL [place] [facility] INICS [facility] Alkaline Phosphatase 106 40 - 150 U/L [facility] ALT 20 0 - 70 U/L [facility] AST 37 0 - 45 U/L [facility] Specimen Anatomical Collection Method Collection Time Receive d Time (Source) Location / / Volume Laterality Blood specimen 06/11/2014 9:05 AM 015 9:07 (specimen) JACK SETTER AM JACK SETTER Oli Thomas MD LAB - BLOOD ORDERABLES Performing Organization Address City/State/ZIP Code Phon e Number [facility] [address] [place] [address] XR Chest 2 Views (06/11/2014 8:52 AM JACK SETTER) Anatomical Region Laterality Modality Chest Computed Radiography Specimen (Source) Anatomical Location Collection Method / Collectio n Time Received Time / Laterality Volume Impressions 06/11/2014 9:24 AM JACK SETTER IMPRESSION: ??Negative. CYNTHIA PACE MD Narrative 06/11/2014 9:24 AM JACK SETTER XR CHEST 2 VW ??06/11/2014 8:52 AM [...] breath documented in this encounter Care Teams Jammer Operator Relationship Specialty Start Date End Date Oli Thomas MD PCP - General Internal Medicine 06/11/14 12/16/20 documented as of this encounter
--- OUTSIDE RECORDS SUMMARY | 2022-01-25 10:24 | XMS_ITS | Encounter Summary ---
:1955 Author Organization [place] Address [address] [place] [address]. [place] [address] Care Team Providers Name Role Phone Lurdes Thomas MD Primary Care Provider [phone] Reason for Visit (Routine) - Closed Specialty Diagnoses / Procedures Referred By Contact Refer red To Contact Cardiology Diagnoses 06/16-reminder ltr sent Rh Echo cc Procedures ECH COMPLETE [address] [facility] [address] [place], [place] [address] Phone: Fax: Referral ID Status Reason Start Date Expiration Date Visits Requ ested Visits Authorized [id number] Closed 06/17/2014 06/17/2015 1 1 Encounter Details Date Type Department Care Team Description 06/25/[address] [facility] MD [place] breath) Heart Care [facility] [address] [facility] [address] [place], [place] [address] [place], [place] [phone] [id number] Social History Tobacco Use Types Packs/Day Years [...] Take 1 capsule 8 capsule 0 06/1208/01/2014 35710 UNIT (50,000 Units) by capsuleIndications: mouth every [...] (shortness o f Results for this OPTISON JACK FRAME TENDER breath) procedure are i n the results section. documented in this encounter Results ECHO COMPLETE WITH OPTISON (06/25/2014 2:19 PM JACK FRAME TENDER) Anatomical Region Laterality Modality Echocardiography Specimen (Source) Anatomical Collection Method Collection Time Re ceived Time Location / / Volume Laterality 06/25/2014 1:34 PM JACK FRAME TENDER Narrative 06/25/2014 4:24 PM JACK FRAME TENDER Interpretation Summary Left ventricular systolic function is [...] to 2mL with Given 06/25/2014 2:12 PM JACK FRAME TENDER 2 mLs saline (OPTISON) diluted injection 2 mL 2 mL, Intravenous, ONCE, On Mon06/25/14 at 1415, For 1 dose, 3mL Optison / 6mL Saline solution documented in this encounter Care Teams Head Strength And Conditioning Coach Relationship Specialty Start Date End Date Lurdes Thomas MD PCP - General Internal Medicine 06/11/14 12/16/20 documented as of this encounter
--- OUTSIDE RECORDS SUMMARY | 2022-01-25 10:24 | XMS_ITS | Encounter Summary ---
:1955 Author Organization [facility] [place] Address [address] [place] [address]. [place] [address] Care Team Providers Name Role Phone Lurdes Thomas MD Primary Care Provider Reason for Visit Reason Onset Date Comments Back Pain 07/20/2011 6 wk follow up Encounter Details Date Type Department Care Team Description 07/20/2011 Telephone [facility] Lurdes Oh Back Pain (6 wk follow 1440 [facility] MD [place] up) [place] [address] [facility] [phone] [address] (Wo rk) Social History [...] for patient to return call or send TERMINALFOURhart message on how he is doing with backpain. Kristina Brandt RN Telephone Encounter - Maki Major - 08/22/2011 3:28 PM CDT LOW BACK PAIN nursing triage 6 week follow-up: Maki Major [facility] Telephone Encounter - Blanca Brandt - 07/20/2011 10:38 AM CST Please post pone and call patient for 6wk follow up of low back pain on or around 08/22/11. Kristina Brandt RN ARIAN documented in this encounter Plan of Treatment Not on filedocumented as of this encounter Visit Diagnoses Not on filedocumented in this encounter Care Teams Knowledge Architect Relationship Specialty Start Date End Date Lurdes Thomas MD PCP - General Internal Medicine 04/12/10 04/03/13 documented as of this encounter
--- OUTSIDE RECORDS SUMMARY | 2022-01-25 10:24 | XMS_ITS | Encounter Summary ---
:1955 Author Organization [place] Address [address] [place] [address]. [place] [address] Care Team Providers Name Role Phone Lurdes Thomas MD Primary Care Provider [phone] Reason for Visit Reason Onset Date Comments Results 10/20/2010 Encounter Details Date Type Department Care Team Description 10/20/2010 Telephone [facility] Lurdes Rojas, Results 14[address] [facility] [place] [address] [facility] [phone] 8675 [place], [place] [address] (Wo rk) Social History [...] hyperlipidemia documented in this encounter Care Teams Cash Applications Representative Relationship Specialty Start Date End Date Lurdes Thomas MD PCP - General Internal Medicine 04/12/10 04/03/13 documented as of this encounter
--- OUTSIDE RECORDS SUMMARY | 2022-01-25 10:24 | XMS_ITS | Encounter Summary ---
:1955 Author Organization [place] Address [address] [place] [address]. [place] [address] Care Team Providers Name Role Phone Lurdes Thomas MD Primary Care Provider [phone] Encounter Details Date Type Department Care Team Description 06/11/[address] [facility] Lurdes Thomas (shortness of Uzair Laughlin MD breath) [address] [facility] [address] [address] [phone] [place] [address] Social History Tobacco Use Types [...] AM SOB (shortness of Results for this BARBER breath) procedure are i n the results section. documented in this encounter Results XR Chest 2 Views (06/11/2014 8:52 AM BARBER) Anatomical Region Laterality Modality Chest Computed Radiography Specimen (Source) Anatomical Location Collection Method / Collectio n Time Received Time / Laterality Volume Impressions 06/11/2014 9:24 AM BARBER IMPRESSION: ??Negative. APOLONIA PACE MD Narrative 06/11/2014 9:24 AM BARBER XR CHEST 2 VW ??06/11/2014 8:52 AM [...] breath documented in this encounter Care Teams Automotive Collision Repair Instructor Relationship Specialty Start Date End Date Lurdes Thomas MD PCP - General Internal Medicine 06/11/14 12/16/20 documented as of this encounter
--- OUTSIDE RECORDS SUMMARY | 2022-01-25 10:24 | XMS_ITS | Encounter Summary ---
:1955 Author Organization [place] Address [address] [place] [address]. [place] [address] Care Team Providers Name Role Phone Lurdes Thomas MD Primary Care Provider [phone] Reason for Visit (Routine) - Closed Specialty Diagnoses / Procedures Referred By Contact Refer red To Contact Cardiology Procedures [facility] Electrocardiology EKG STRESS NM LEXISCAN [address] [place], [place] [address] Phone: Referral ID Status Reason Start Date Expiration Date Visits Requ ested Visits Authorized [id number] Closed 06/19/2014 06/19/2015 1 1 Encounter Details Date Type Department Care Team Description 06/25/2014 Hospital Encounter [facility] Lurdes Thomas SOB (shortness of Electrocardiolgy MD [place] breath) [address] [facility] [address] [place] [address] [place] [address] Social History Tobacco Use Types [...] Take 1 capsule 8 capsule 0 06/1208/01/2014 22658 UNIT (50,000 Units) by capsuleIndications: mouth every [...] adverse reactions to catarino injection. Rachel Segura GRATED LOGISTICS PROGRAMS DIRECTOR documented in this encounter Plan of Treatment Not on filedocumented as of this encounter Procedures Procedure Name Priority Date/Time Associated Diagnosis Comme nts NM MPI WITH Routine 06/25/2014 1:06 PM SOB (shortness of Resu lts for this LEXISCAN INTEGRATED LOGISTICS PROGRAMS DIRECTOR breath) procedure are i n the results section. documented in this encounter Results NM Lexiscan stress test (06/25/2014 1:06 PM INTEGRATED LOGISTICS PROGRAMS DIRECTOR) Anatomical Region Laterality Modality Chest Nuclear Medicine Specimen (Source) Anatomical Location Collection Method / Collectio n Time Received Time / Laterality Volume Narrative 06/26/2014 10:06 AM INTEGRATED LOGISTICS PROGRAMS DIRECTOR GATED MYOCARDIAL PERFUSION SCINTIGRAPHY WITH INTRAVENOUS [...] (LEXISCAN) 0.4 MG/5ML Given 06/25/2014 11:30 AM INTEGRATED LOGISTICS PROGRAMS DIRECTOR injection Starting on Mon06/25/14 at 1148, For 1 dose, RACHEL SEGURA: cabinet override documented in this encounter Care Teams Outbound Call Center Representative Relationship Specialty Start Date End Date Lurdes Thomas MD PCP - General Internal Medicine 06/11/14 12/16/20 documented as of this encounter
--- OUTSIDE RECORDS SUMMARY | 2022-01-25 10:24 | XMS_ITS | Encounter Summary ---
:1955 Author Organization [place] Address [address] [place] [address]. [place] [address] Care Team Providers Name Role Phone Lurdes Thomas MD Primary Care Provider [phone] Reason for Visit Reason Comments Edema right foot and ankle Encounter Details Date Type Department Care Team Description 03/15/[address] [facility] Lurdes Thomas Swelling of extremity, Uzair Laughlin MD right (Primary Dx) 1440 [facility] [place] [address] [place] [phone] [address] [place], [place] [address] Social History Tobacco Use [...] CDT Ultrasound of right leg at 4:15 [facility] [address] [place] [address] Wait for results - will page me [...] about 2 weeks ago. Had traveled to [place] and [place] the week before. Only on right side. [...] lb 4.8 oz (88.587 kg) BMI 25.42 kg/i6Jbxmvnzmd Body mass index is 25.42 kg/(m^2) as [...] limb documented in this encounter Care Teams Plumber'S Helper Relationship Specialty Start Date End Date Lurdes Thomas MD PCP - General Internal Medicine 04/12/10 04/03/13 documented as of this encounter
--- OUTSIDE RECORDS SUMMARY | 2022-01-25 10:24 | XMS_ITS | Encounter Summary ---
:1955 Author Organization [place] Address [address] [place] [address]. [place] [address] Care Team Providers Name Role Phone Lurdes Thomas MD Primary Care Provider Reason for Visit Reason Onset Date Comments Medication Request 10/24/2011 robaxin Encounter Details Date Type Department Care Team Description 10/24/2011 Telephone [facility] Eag Lurdes Rojas Medication Request 1440 [facility] MD [place] (robaxin) [place] [address] [facility] [phone] 73 25 (Wo rk) Social History [...] on filedocumented in this encounter Care Teams Wooden Barrel Mechanic Relationship Specialty Start Date End Date Lurdes Thomas MD PCP - General Internal Medicine 04/12/10 04/03/13 documented as of this encounter
--- OUTSIDE RECORDS SUMMARY | 2022-01-25 10:24 | XMS_ITS | Encounter Summary ---
:1955 Author Organization [place] Address [address] [place] [address]. [place] [address] Care Team Providers Name Role Phone Lurdes Thomas MD Primary Care Provider [phone] Reason for Visit Reason Comments Hypertension labs Encounter Details Date Type Department Care Team Description 07/27/2011 Office Visit [facility] Lurdes Thomas (Primary Dx); Uzair Laughlin MD Hyperlipidemia LDL goal < 130; [address] [employer] Parkinson disease (H); [place] [address] [facility] Screening for diabetes mellitus [phone] [address] [place] [address] Social History Tobacco Use Types [...] Comments Blood Pressure 124/70 07/27/2011 10:04 AM RETAIL MARKETING EXECUTIVE Pulse 65 07/27/2011 10:04 AM RETAIL MARKETING EXECUTIVE Temperature 36.3 ??C (97.3 ??F) 07/27/2011 10:04 AM RETAIL MARKETING EXECUTIVE Respiratory Rate - - Oxygen Saturation - - Inhaled Oxygen Concentration - - Weight 87.7 kg (193 lb 6.4 oz) 07/27/2011 10:04 AM RETAIL MARKETING EXECUTIVE Height 186.7 cm (6' 1.5) 07/27/2011 10:04 AM RETAIL MARKETING EXECUTIVE Body Mass Index 25.17 07/27/2011 10:04 AM RETAIL MARKETING EXECUTIVE documented in this encounter Patient Instructions Patient InstructionsLurdes Laughlin MD - 07/27/2011 10:35 AM RETAIL MARKETING EXECUTIVE 1. Labs today: cholesterol, electrolytes, diabetes screen, liver function and kidney function 2. Consider checking blood pressure when get hot/flushed feeling 3. Keep a log of when it happens, how Parkinson's is that day, any increased medications, stress/anxiety level [place] MARKETING EXECUTIVE documented in this encounter Progress Notes Lurdes [...] Parkinson's, HLP. Lurdes Laughlin MD Internal Medicine/Pediatrics [place] MARKETING EXECUTIVE documented in this encounter Nursing Notes 07/27/2011 [...] sults for this DIRECT LDL PANEL AM RETAIL MARKETING EXECUTIVE goal < 130 procedure a re in the results section. COMPREHENSIVE Routine 07/27/2011 10:35 Hyperlipidemia LDL Resu lts for this METABOLIC PANEL AM RETAIL MARKETING EXECUTIVE goal < 130 procedure are in Screening for diabetes the r esults mellitus section. documented in this encounter Results Comprehensive metabolic panel (07/27/2011 10:35 AM RETAIL MARKETING EXECUTIVE) P athologist Signature Sodium 138 133 - 144 [place] [facility] mmol/L [facility] Potassium 4.2 3.4 - 5.3 [place] [facility] mmol/L [facility] Chloride 105 94 - 109 [place] [facility] mmol/L [facility] Carbon Dioxide 21 20 - 32 [facility]L [facility] Anion Gap 11 6 - 17 [facility] mmol/L [facility] Glucose 99 60 - 99 [facility] mg/dL [facility] Urea Nitrogen 18 7 - 30 [facility] mg/dL [facility] LAB Creatinine 0.80 0.66 - [facility] 1.25 mg/dL [facility]IN[facility] GFR Estimate >90 >60 [facility] mL/min/1.7 [facility] m2 GFR Estimate If >90 >60 [facility] Black mL/min/1.7 [facility]IN[facility] m2 Calcium 9.3 8.5 - 10.4 [facility] mg/dL [facility] LAB Bilirubin Total 0.7 0.2 - 1.3 [facility] Albumin 4.2 3.3 - 4.9 [place] [facility] g/dL CLINIC LAB Comment: Reference range changed on 01/21. Protein Total 7.4 6.8 - 8.8 g/dL [facility] [facility] Comment: As of 07, reference range reflects plasma specimen type. Alkaline Phosphatase 87 40 - 150 U/L [facility] CL[facility]IC LAB ALT 20 0 - 70 U/L [facility] AST 35 0 - 45 U/L [facility] CLIN IC LAB Specimen Anatomical Collection Method Collection Time Receive d Time (Source) Location / / Volume Laterality Blood specimen 07/27/2011 10:35 2 (specimen) AM RETAIL MARKETING EXECUTIVE 10:38 AM RETAIL MARKETING EXECUTIVE Lurdes Thomas MD LAB - BLOOD ORDERABLES Performing Organization Address City/State/ZIP Code Phon e Number [facility] [address] [place] [address] [facility] (ABNORMAL) Lipid panel reflex to direct LDL (07/27/2011 10:35 AM RETAIL MARKETING EXECUTIVE) P athologist Signature Cholesterol 236 (H) 0 - 200 [facility] mg/dL CLINIC LAB Comment: LDL Cholesterol is the primary guide to therapy. The NCEP recommends further evaluation of: patients with cholesterol greater than 200 mg/dL if additional risk facto rs are present, cholesterol greater than 240 mg/dL, triglycerides greater than 1 50 mg/dL, or HDL less than 40 mg/dL. Triglycerides 121 0 - 150 mg/dL [facility] HDL Cholesterol 60 40 - 110 mg/dL [facility] LDL Cholesterol Calculated 152 (H) 0 - 129 mg/dL [facility] Comment: LDL Cholesterol is the primary guide to therapy: LDL-cholesterol goal in high risk patients is <100 mg/dL and in very high risk patients is <70 mg/dL. VLDL-Cholesterol 24 0 - 30 mg/dL [facility] Cholesterol/HDL Ratio 3.9 0.0 - 5.0 [facility] Specimen Anatomical Collection Method Collection Time Receive d Time (Source) Location / / Volume Laterality Blood specimen 07/27/2011 10:35 2 (specimen) AM RETAIL MARKETING EXECUTIVE 10:38 AM RETAIL MARKETING EXECUTIVE Lurdes Thomas MD LAB - BLOOD ORDERABLES Performing Organization Address City/State/ZIP Code Phon e Number [address] [address] [facility] documented in this encounter Visit Diagnoses Diagnosis Flushing - Primary Hyperlipidemia LDL goal < 130 Other and unspecified hyperlipidemia Parkinson disease (H) Paralysis agitans Screening for diabetes mellitus documented in this encounter Care Teams General Science Teacher Relationship Specialty Start Date End Date Lurdes Thomas MD PCP - General Internal Medicine 04/12/10 04/03/13 documented as of this encounter
--- OUTSIDE RECORDS SUMMARY | 2022-01-25 10:24 | XMS_ITS | Encounter Summary ---
:1955 Author Organization [place] Address [address] [place] [address]. [place] [address] Care Team Providers Name Role Phone Lurdes Thomas MD Primary Care Provider [phone] Reason for Visit Reason Comments Refill Request lab draw Encounter Details Date Type Department Care Team Description 09/20/2012 Office Visit [facility] Lurdes Thomas Hyperlipi demkatlyn LDL goal < 130 (Primary Dx); Uzair Laughlin MD Parkinson disease (H); [address] [employer] Prediabetes; [place] [address] [place] Screening for diabetes mellitus; [phone] 8675 [facility] Screening [place] [address] Social History Tobacco Use Types Packs/Day Years [...] Body Mass Index 23.75 07/27/2011 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 OBJECTIVE: BP 112/62 [...] Provider - 1 year Lurdes Thomas MD [facility] documented in this encounter Nursing Notes 09/20/2012 8:00 AM CDT >> ERROL WARREN [facility] September 20, 2012 8:08 AM Patient [...] athologist Signature Sodium 139 133 - 144 [place] mmol/L [facility] Potassium 4.6 3.4 - 5.3 [place] mmol/L [facility] Chloride 101 94 - 109 [place] [place] mmol/L [facility] Carbon Dioxide 31 20 - 32 [facility] mmol/L [facility] Anion Gap 7 6 - 17 [place] [facility] mmol/L [facility] Glucose 104 (H) 60 - 99 [facility] mg/dL CLINIC LAB Comment: Fasting specimen Urea Nitrogen 24 7 - 30 mg/dL [facility] N [facility] Creatinine 0.94 0.66 - 1.25 mg/dL [facility] GFR Estimate 83 >60 mL/min/1.7m2 [facility] GFR Estimate If Black >90 >60 mL/min/1.7m2 F [facility] Calcium 8.8 8.5 - 10.4 mg/dL [facility] Bilirubin Total 1.0 0.2 - 1.3 mg/dL [facility] Albumin 4.1 3.3 - 4.9 g/dL [facility] Comment: Reference range changed on 01/21. Protein Total 7.0 6.8 - 8.8 g/dL [facility] Comment: As of 07, reference range reflects plasma specimen type. Alkaline Phosphatase 81 40 - 150 U/L [facility] ALT 17 0 - 70 U/L [facility] CLIN IC LAB AST 54 (H) 0 - 45 U/L [facility] CLIN IC LAB Specimen Anatomical Collection Method Collection Time Receive d Time (Source) Location / / Volume Laterality Blood specimen 09/20/2012 8:17 AM 013 8:22 (specimen) CDT AM CDT Lurdes Thomas MD LAB - BLOOD ORDERABLES Performing Organization Address City/State/ZIP Code Phon e Number [facility] [address] [place] [address] [facility] [address] [place] [address] Lipid panel reflex to direct LDL (09/20/2012 8:17 AM CDT) athologist Signature Cholesterol 178 0 - 200 [facility] mg/dL CLINIC LAB Comment: LDL Cholesterol is the primary guide to therapy. The NCEP recommends further evaluation of: patients with cholesterol greater than 200 mg/dL if additional risk facto rs are present, cholesterol greater than 240 mg/dL, triglycerides greater than 1 50 mg/dL, or HDL less than 40 mg/dL. Triglycerides 83 0 - 150 mg/dL [facility] HDL Cholesterol 66 40 - 110 mg/dL [facility] LDL Cholesterol Calculated 95 0 - 129 mg/dL [facility] Comment: LDL Cholesterol is the primary guide to therapy: LDL-cholesterol goal in high risk patients is <100 mg/dL and in very high risk patients is <70 mg/dL. VLDL-Cholesterol 17 0 - 30 mg/dL [facility] Cholesterol/HDL Ratio 2.7 0.0 - 5.0 [facility] Specimen Anatomical Collection Method Collection Time Receive d Time (Source) Location / / Volume Laterality Blood specimen 09/20/2012 8:17 AM 013 8:22 (specimen) CDT AM CDT Lurdes Thomas MD LAB - BLOOD ORDERABLES Performing Organization Address City/State/ZIP Code Phon e Number [facility] [address] [place] [address] [facility] [address] [place] [address] documented in this encounter Visit Diagnoses Diagnosis Hyperlipidemia LDL goal < 130 - Primary Other and unspecified hyperlipidemia Parkinson disease (H) Paralysis agitans Prediabetes Other abnormal glucose Screening for diabetes mellitus Screening for colon cancer Special screening for malignant neoplasm s, colon documented in this encounter Care Teams Manager Support Relationship Specialty Start Date End Date Lurdes Thomas MD PCP - General Internal Medicine 04/12/10 04/03/13 documented as of this encounter
--- OUTSIDE RECORDS SUMMARY | 2022-01-25 10:24 | XMS_ITS | Encounter Summary ---
:1955 Author Organization [place] Address [address] [place] [address]. [place] [address] Care Team Providers Name Role Phone Unavailable Primary Care Provider Unavailable Reason for Visit Reason Onset Date Comments Refill Request 11/06/2013 Pravachol Encounter Details Date Type Department Care Team Description 11/06/2013 Refill [facility] Eag an Martha, Lurdes Refill Request 1440 [facility] MD [place] (Pravachol ) [place] [address] [facility] [phone] [address] (Wo rk) Social History [...] of 03/2013-Per patient, he has swtiched to [facility] due to insurance change, no longer seen through the [facility] network. Maame Major RN Telephone Encounter - [...]
--- OUTSIDE RECORDS SUMMARY | 2022-01-25 10:24 | XMS_ITS | Encounter Summary ---
:1955 Author Organization [place] Address [address] [place] [address]. [place] [address] Care Team Providers Name Role Phone Lurdes Thomas MD Primary Care Provider [phone] Encounter Details Date Type Department Care Team Description 03/15/2011 Hospital Encounter [facility] Lurdes Thomas of [facility] MD [place] extremity, right [address] [facility] [address] [place] [address] [place] [address] Social History Tobacco Use Types [...] 0600 1000 Parkinson disease (H) 1430 1900 sildenafil (VIAGRA) 50 MG Take 1 tablet by 10 tablet 12 09/2002/12/2015 tabletIndications: mouth daily as Erectile dysfunction needed for erectile dysfunction. pravastatin (PRAVACHOL) 40 Take 1 tablet by 90 tablet 1 05/201004/11/2011 MG tabletIndications: mouth daily. Hyperlipidemia LDL goal < 130 rasagiline (AZILECT) 1 MG Take 1 tablet by 0 03/2306/11/2014 TABSIndications: Parkinson mouth daily. disease (H) ropinirole (REQUIP) 0.5 MG Take 1 tablet by 1 06/11/2014 tabletIndications: mouth 3 times Restless leg daily. documented as of this encounter Plan of [...] limb documented in this encounter Care Teams Change Agent Relationship Specialty Start Date End Date Lurdes Thomas MD PCP - General Internal Medicine 04/12/10 04/03/13 documented as of this encounter
--- OUTSIDE RECORDS SUMMARY | 2022-01-25 10:24 | XMS_ITS | Encounter Summary ---
:1955 Author Organization [place] Address [address] [place] [address]. [place] [address] Care Team Providers Name Role Phone Lurdes Thomas MD Primary Care Provider [phone] Reason for Visit Reason Comments Physical Encounter Details Date Type Department Care Team Description 10/15/2010 Office Visit [facility] Lurdes Thomas Routine g eneral medical examination at a health care facility (Primary Dx); Uzair Laughlin MD Restless leg syndrome; [address] [employer] Hyperlipidemia LDL goal < 13 0; [place] [address] [place] Erectile dysfunction; [phone] 8675 [facility] Parkinson disease (H); RD Screening for colon cancer; [place], [place] Screening for p rostate cancer; [address] Screening for diabetes mellitus Social History Tobacco [...] effects. All Histories reviewed and updated in [facility]. ROS: C: NEGATIVE for fever, chills, [...] Signature PSA 0.85 0 - 4 ug/L [facility] Specimen Anatomical Collection Method Collection Time Receive d Time (Source) Location / / Volume Laterality Blood specimen 10/15/2010 8:32 AM 011 8:37 (specimen) CDT AM CDT Lurdes Thomas MD LAB - BLOOD ORDERABLES Performing Organization Address City/[facility] Code Phon e Number [facility] [address] [place] [address] [facility] Ferritin (10/15/2010 8:32 AM CDT) athologist Signature Ferritin 47 20 - 300 [facility] ng/mL CLINIC LAB Specimen Anatomical Collection Method Collection Time Receive d Time (Source) Location / / Volume Laterality Blood specimen 10/15/2010 8:32 AM 011 8:37 (specimen) CDT AM CDT Lurdes Thomas MD LAB - BLOOD ORDERABLES Performing Organization Address City/[facility] Phon e Number [facility] [address] [place] [address] [facility] (ABNORMAL) Comprehensive metabolic panel (10/15/2010 8:32 AM CDT) P athologist Signature Sodium 142 133 - 144 [place] [facility] mmol/L [facility] Potassium 4.7 3.4 - 5.3 [facility]L [facility] Chloride 103 94 - 109 [facility] mmol/L [facility] Carbon Dioxide 28 20 - 32 [place] [facility] mmol/L [facility] Anion Gap 11 6 - 17 [facility] mmol/L [facility] Comment: CORRECTED ON 10/18 AT 1537: PRE VIOUSLY REPORTED 10 Glucose 101 (H) 60 - 99 mg/dL [facility] LAB Urea Nitrogen 21 7 - 30 mg/dL [facility] N [facility] Creatinine 0.99 0.66 - 1.25 mg/dL [facility] GFR Estimate 79 >60 mL/min/1.7m2 [place] [facility] Comment: CORRECTED ON 10/18 AT 1537: PRE VIOUSLY REPORTED Not Calculated GFR Estimate If Black >90 >60 mL/min/1.7m2 F [facility] CORRECTED ON 10/18 AT 1537: PREVIOUSLY REPORTED Not Tres culated CLINIC LAB Calcium 9.0 8.5 - 10.4 mg/dL [facility] Bilirubin Total 0.7 0.2 - 1.3 mg/dL [facility] Albumin 4.2 3.9 - 5.1 g/dL [facility] Comment: Reference range changed on 01/21. Protein Total 7.1 6.8 - 8.8 g/dL [facility] Comment: As of 07, reference range reflects plasma specimen type. Alkaline Phosphatase 77 40 - 150 U/L [facility]IC LAB ALT 15 0 - 70 U/L [facility] CLIN IC LAB AST 31 0 - 55 U/L [facility] CLIN IC LAB Specimen Anatomical Collection Method Collection Time Receive d Time (Source) Location / / Volume Laterality Blood specimen 10/15/2010 8:32 AM 011 8:37 (specimen) CDT AM CDT Lurdes Thomas MD LAB - BLOOD ORDERABLES Performing Organization Address City/[facility] Phon e Number [facility] [address] [place] [address] [phone] [facility] LAB (ABNORMAL) Lipid Profile (10/15/2010 8:32 AM CDT) P athologist Signature Cholesterol 232 (H) 0 - 200 [facility] mg/dL CLINIC LAB Comment: LDL Cholesterol is the primary guide to therapy. The NCEP recommends further evaluation of: patients with cholesterol greater than 200 mg/dL if additional risk facto rs are present, cholesterol greater than 240 mg/dL, triglycerides greater than 1 50 mg/dL, or HDL less than 40 mg/dL. Triglycerides 95 0 - 150 mg/dL [facility] HDL Cholesterol 56 40 - 110 mg/dL [facility] LDL Cholesterol Calculated 157 (H) 0 - 129 mg/dL [facility] Comment: LDL Cholesterol is the primary guide to therapy: LDL-cholesterol goal in high risk patients is <100 mg/dL and in very high risk patients is <70 mg/dL. VLDL-Cholesterol 19 0 - 30 mg/dL [facility] LAB Cholesterol/HDL Ratio 4.1 0.0 - 5.0 [facility] Comment: CORRECTED ON 10/18 AT 1537: PRE VIOUSLY REPORTED 4.2 Specimen Anatomical Collection Method Collection Time Receive d Time (Source) Location / / Volume Laterality Blood specimen 10/15/2010 8:32 AM 011 8:37 (specimen) CDT AM CDT Lurdes Thomas MD LAB - BLOOD ORDERABLES Performing Organization Address [facility] Phon e Number [facility] [address] [place] [address] [phone] [facility] documented in this encounter Visit [...] mellitus documented in this encounter Care Teams Wet Room Worker Relationship Specialty Start Date End Date Lurdes Thomas MD PCP - General Internal Medicine 04/12/10 04/03/13 documented as of this encounter
--- OUTSIDE RECORDS SUMMARY | 2022-01-25 10:24 | XMS_ITS | Encounter Summary ---
:1955 Author Organization [place] Address [address] [place] [address]. [place] [address] Care Team Providers Name Role Phone Lurdes Thomas MD Primary Care Provider [phone] Reason for Referral Referral not Required - Closed Specialty Diagnoses / Procedures Referred By Contact Refer red To Contact Diagnoses Cervical radicular pain Francisco Kitchen MD [facility] [address] [place] [address] [address] [facility] [place] [address] ADMIN OFFICE [place] [address] Phone: [phone] Referral ID Status Reason Start Date Expiration Date Visits Requ ested Visits Authorized [id number] Closed 10/25/2011 04/22/2012 1 1 Reason for Visit Reason Comments Back Pain Encounter Details Date Type Department Care Team Description 10/25/2011 Office Visit [facility] Francisco Kitchen DDD (degene rative disc disease), cervical; Uzair Currie MD Cervical radicular pain [address] [place] [address] [place] [address] [facility] [phone] [place] [address] Social History Tobacco Use [...] Body Mass Index 24.6 07/27/2011 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
--- OUTSIDE RECORDS SUMMARY | 2022-01-25 10:24 | XMS_ITS | Encounter Summary ---
:1955 Author Organization [place] Address [address] [place] [address]. [place] [address] Care Team Providers Name Role Phone Lurdes Thomas MD Primary Care Provider [phone] Reason for Visit Reason Comments Establish Care Encounter Details Date Type Department Care Team Description 04/12/2010 Office Visit [facility] Lurdes Thomas Erectile dysfunction (Primary Dx); Uzair Laughlin MD Parkinson disease (H); [address] [employer] Hyperlipidemia LDL goal < 13 0; [place] [address] [place] Restless leg [phone] [place] [address] Social History Tobacco Use Types [...] Comments Blood Pressure 122/60 04/12/2010 10:07 AM 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 Pulse 70 04/12/2010 10:07 AM 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 Temperature - - Respiratory Rate - - Oxygen Saturation - - Inhaled Oxygen Concentration - - Weight 87 kg (191 lb 12.8 oz) 04/12/2010 10:07 AM 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 Height 186.7 cm (6' 1.5) 04/12/2010 10:07 AM 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 Body Mass Index 24.96 04/12/2010 10:07 AM 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 documented in this encounter Progress Notes Lurdes [...] MG tablet Lurdes Laughlin MD Internal Medicine/Pediatrics NCIAL INSTITUTION MANAGER documented in this encounter Nursing Notes 04/12/2010 [...] (RLS) documented in this encounter Care Teams Ore Grader Relationship Specialty Start Date End Date Lurdes Thomas MD PCP - General Internal Medicine 04/12/10 04/03/13 documented as of this encounter
--- OUTSIDE RECORDS SUMMARY | 2022-01-25 10:24 | XMS_ITS | Encounter Summary ---
:1955 Author Organization [place] Address [address] [place] [address]. [place] [address] Care Team Providers Name Role Phone Unavailable Primary Care Provider Unavailable Reason for Visit Reason Onset Date Comments Outreach 04/04/2013 Preventative health screening Encounter Details Date Type Department Care Team Description 04/04/2013 Telephone [facility] Eag Lurdes Rojas Outreach (Preventative 1440 [facility] MD [place] health screening) [place] [address] [facility] [employer] [phone] [address] (Wo rk) Social History Tobacco Use [...] Comments: Per patient, he has swtiched to [facility] due to insurance change, [facility]. Outreach [employer] Account Executive Charanjit Amaro RMATICA DEVELOPER documented in this encounter Plan of Treatment Not on filedocumented as of this encounter Visit Diagnoses Not on filedocumented in this encounter
--- OUTSIDE RECORDS SUMMARY | 2022-01-25 10:24 | XMS_ITS | Encounter Summary ---
:1955 Author Organization [facility] Address [address] [facility] [place] [address] Care Team Providers Name Role Phone Lurdes Thomas MD Primary Care Provider [phone] Encounter Details Date Type Department Care Team Description 06/18/2014 Medical Correspondence [facility] Scan, GOALS AND CONCERNS [facility], Non-Provider Health Info Mgmt [facility] [address] [place] [address] Social History Tobacco Use Types [...] on filedocumented in this encounter Care Teams Funeral Planning Counselor Relationship Specialty Start Date End Date Lurdes Thomas MD PCP - General Internal Medicine 06/11/14 12/16/20 documented as of this encounter
--- OUTSIDE RECORDS SUMMARY | 2022-01-25 10:24 | XMS_ITS | Encounter Summary ---
:1955 Author Organization [facility] Address [address] [place] [address]. [place] [address] Care Team Providers Name Role Phone Lurdes Thomas MD Primary Care Provider Reason for Visit Reason Onset Date Comments Pt. Information/instruction 10/26/2011 Physical the rapy Encounter Details Date Type Department Care Team Description 10/26/2011 Telephone [facility] Eag Lurdes Rojas Pt. [address] [facility] MD Truman Information/instruction [place] [address] [facility] (Physical therapy) [phone] [place] [phone] (Wo rk) Social History Tobacco Use [...] took him to a chiropractor here in [place] who does the ultrasound treatments. He got [...] on filedocumented in this encounter Care Teams Special Service Representative Relationship Specialty Start Date End Date Lurdes Thomas MD PCP - General Internal Medicine 04/12/10 04/03/13 documented as of this encounter
--- OUTSIDE RECORDS SUMMARY | 2022-01-25 10:25 | XMS_ITS | Clinical Summary ---
:1955 Author Organization [facility] Address [address] [place] [address] Care Team Providers Name Role Phone Samantha Stauffer MD Primary Care Provider [phone] Source Comments You are receiving this document [...] for each transition of care or referral. [facility] Allerg[facility] No known active allergies Medications Medication [...] this topic Medical Devices Implanted Type Area Clerk Device Shelf Model / Identifier Expiration Serial / Date Lot Activa Pc - [id number] DEVICE Right: Medtronic - 2020 [id number] / Implanted: Qty: 1 on 12/12/2019 by Jorge L Kaiser MD at [facility] CHEST Neurological [id number] / [id number] Insurance Payer Benefit Plan / Subscriber ID Effective Dates Phone Addre ss Type Group MEDICARE MEDICARE PART [id number] 2018-Presfederica [phone] Medicare A t 27 BCBS BCBS OUT OF [id number] 2017-Ignacio [address] [address] Commercial [place] [id number] [address] (Home) [place] [address] Andrew Pang Personal/Famil Self 1955 [phone] [address] y (Home) [place]BB[place] 5512 2 Andrew Pang Personal/Famil Self 1955 [address] (Home) [place] 550 [address] Advance Directives Latest Code Status on File Code Status Date Activated Date Inactivated Comments Full Code 12/12/2019 8:30 AM 12/12/2019 9:48 PM Care Teams Business Manager Relationship Specialty Start Date End Date Samantha Stauffer MD PCP - General Family Practice 12/12/191999 [place] [address]
--- OUTSIDE RECORDS SUMMARY | 2022-01-25 10:26 | XMS_ITS | Encounter Summary ---
:1955 [facility] Address [address], [place] [address] Care Team Providers Name Role Phone Lurdes Thomas MD Primary Care Provider Reason for Visit Reason Comments Video Visit Consult/Transfer Care (Routine) - Closed Specialty Diagnoses / Procedures Referred By Contact Refer red To Contact Diagnoses Parkinson's disease (HRC) Maria Esther Phan MD [address] [place], [place] [address] Referral ID Status Reason Start Date Expiration Date Visits Requ ested Visits Authorized [id number] Closed 09/12/2019 12/11/2020 1 1 Encounter Details Date Type Department Care Team Description 09/18/2019 Telemedicine Specialty Center 3931 Divina Kaiser MD Parkinson's disease Neurosurgery 3931 [facility] ([facility]) (Primary Dx) 3931 [facility] [id number] [phone] Social History Tobacco Use Types Packs/Day Years [...] screening: no ?? Confirmed that patient has MyFitnessPal downloaded and ready: Yes ?? Patient is [...] Primary documented in this encounter Care Teams Central Office Inspector Relationship Specialty Start Date End Date Lurdes Thomas MD PCP - General 06/18/14 12/11/19 documented as of this encounter
--- OUTSIDE RECORDS SUMMARY | 2022-01-25 10:26 | XMS_ITS | Encounter Summary ---
:1955 Author [facility] Address [address], [place] [address] Care Team Providers Name Role Phone Lurdes Thomas MD Primary Care Provider Reason for Referral (Routine) - Incomplete Specialty Diagnoses / Procedures Referred By Contact Refer red To Contact Diagnoses Parkinson's disease (HRC) Jorge L Kaiser MD Procedures Case Request OR - Neurosurgery: RIGHT DEEP BRAIN STIMULATOR GENERATOR REPLACEMENT [address] [place] [address] Referral ID Status Reason Start Date Expiration Date Visits V isits Requested Authorized [id number] Incomplete 09/18/2019 12/17/2020 1 1 Encounter Details Date Type Department Care Team Description 09/18/2019 Prep for Surgery Specialty Center Jorge L Kaiser MD Parkinson's disease 3931 Neurosurgery 3931 [facility] (Primary Dx) 3931 [place] [address] [place] [address] [phone] Social History Tobacco Use Types Packs/Day Years [...] Primary documented in this encounter Care Teams Sign Designer Relationship Specialty Start Date End Date Serum, Lurdes C, MD PCP - General 06/18/14 12/11/19 documented as of this encounter
--- OUTSIDE RECORDS SUMMARY | 2022-01-25 10:26 | XMS_ITS | Encounter Summary ---
:1955 Author Organization [facility] Address [address], [place] [address] Care Team Providers Name Role Phone Lurdes Thomas MD Primary Care Provider Reason for Visit Reason Comments Prior Authorization Request update needed - Gocovri Encounter Details Date Type Department Care Team Description 10/10/2019 Telephone [facility] MD Prem Request (update needed Neurology [address] [facility]) [address] [facility] [place] [address] [place], [place] [phone] Social History Tobacco Use Types Packs/Day Years [...] AM CDT Spouse calling for pt - [facility] ph[facility] checking on status for PA for Gocovri. Pt needs this medication by Monday. Please call pt back and advise. THanks Jeannette Dee 10/10/2019, 10:53 AM documented in this encounter Plan of Treatment Not on filedocumented as of this encounter Visit Diagnoses Not on filedocumented in this encounter Care Teams Scratcher Tender Relationship Specialty Start Date End Date Lurdes Thomas MD PCP - General 06/18/14 12/11/19 documented as of this encounter
--- OUTSIDE RECORDS SUMMARY | 2022-01-25 10:26 | XMS_ITS | Encounter Summary ---
:1955 Author Organization [facility] Address [address] [place] [address] Care Team Providers Name Role Phone Samantha Stauffer MD Primary Care Provider [phone] Reason for Referral Procedure/Equipment (Routine) - Incomplete Specialty Diagnoses / Procedures Referred By Contact Refer red To Contact Diagnoses Parkinson's disease (HRC) Dysphagia, unspecified type ParashosMaria Esther MD Procedures FL Video Swallow Study [address] [place], [place] [address] Referral ID Status Reason Start Date Expiration Date Visits V isits Requested Authorized [id number] Incomplete 11/04/2020 02/03/2022 1 1 Therapies (Routine) - Closed Specialty Diagnoses / Procedures Referred By Contact Refer red To Contact Diagnoses Parkinson's disease (HRC) Dysphagia, unspecified type ParashoMaria Esther jacques MD [address] [place], [place] [address] Referral ID Status Reason Start Date Expiration Date Visits Requ ested Visits Authorized [id number] Closed 11/04/2020 11/04/2021 1 1 Scheduling Instructions Your provider has recommended an appoint ment with a [facility] Speech Therapist. Please call for your appointment you may call [facility] at [phone]. We suggest you call your [facility] insurance company about your coverage and benefits for this appointment. Reason for Visit Reason Comments Orders Needed FL VIDEO SWALLOW STUDY Encounter Details Date Type Department Care Team Description 11/04/2020 Telephone [facility] Maria Esther Phan Orders Needed ([facility] MD Jorden VIDEO SWALLOW STUDY ) Neurology 3931 [facility] [address] [place] [address] [place], [place] [phone] (Wo rk) Social History Tobacco Use Types [...] had done Jun). RN can see the TALK SHOW HOST order that requests video swallow study (with radiology and speech, but they need the actual order along with the TALK SHOW HOST order. The order is pended. Dr. Phan [...] CDT EXAM: FL VIDEO SWALLOW STUDY LOCATION: [facility] DATE/TIME: 11/19/2020 11:56 AM INDICATION: [...] original. EXAM: FL VIDEO SWALLOW STUDY LOCATION: [facility] DATE/TIME: 11/19/2020 11:56 AM INDICATION: [...] type documented in this encounter Care Teams Universal Grinder Operator Relationship Specialty Start Date End Date Samantha Stauffer MD PCP - General Family Practice 12/12/191999 [place] [address] documented as of this encounter
--- OUTSIDE RECORDS SUMMARY | 2022-01-25 10:26 | XMS_ITS | Encounter Summary ---
:1955 Author Organization [facility] Address [address] [place] [address] Care Team Providers Name Role Phone Samantha Stauffer MD Primary Care Provider [phone] Reason for Visit Reason Comments Prior Authorization Request Amantadine HCl ER (GOCOVRI ) 137 MG CP24 Encounter Details Date Type Department Care Team Description 10/27/2020 [facility] MD Prem Request (Amantadine Neurology [address] HCl ER (GOCOVRI) [address] MG CP24) [place] [address] [place], [place] [phone] [id number] Social History Tobacco Use Types Packs/Day Years Used Date Smoking Tobacco: Never Smokeless Tobacco: Never Alcohol Use Standard Drinks/Week Comments Yes 0 (1 standard drink = 0.6 oz pure alcoho l) Sex Assigned at Date Recorded Not on file documented as of this encounter Nursing Notes Chloé Denny - 11/06/2020 8:37 AM CDT Prior authorization approved -Nida Payer: [facility] CaseId:[id number];Status:Approved;Review Type:Prior Auth;Coverage Start Date:09/27/2020;Coverage End Date:10/27/2021; RN [...] filedocumented in this encounter Care Teams Supervisor Building Maintenance Relationship Specialty Start Date End Date Samantha Stauffer MD PCP - General Family Practice 12/12/191999 [place] [address] documented as of this encounter
--- OUTSIDE RECORDS SUMMARY | 2022-01-25 10:26 | XMS_ITS | Encounter Summary ---
:1955 Author [facility] Address [address], [place] [address] Care Team Providers Name Role Phone Samantha Staufefr MD Primary Care Provider [phone] Reason for Visit Reason Comments Medication Questions Encounter Details Date Type Department Care Team Description 06/11/2021 Telephone [facility] Dorsi Arauz roofing contractor Questions [address] [place] [address] Social History Tobacco Use Types Packs/Day [...] left again. Chloé Denny 06/16/2021, 1:21 PM TER OPERATOR Chloé Denny - 06/14/2021 3:32 PM CST RN called pt to advise him to call [place] Sanjeev Boyer back regarding his rx. No answer. Detailed voicemail left. Chloé Denny 06/14/2021, 3:33 PM TER OPERATOR Doris Arauz RN - 06/11/2021 1:55 PM CST NSC pt. [facility] called because they are in need of more information to contact the patient. They have attempted 5 times with not luck. They are requesting a call back at [phone] TER OPERATOR documented in this encounter Plan of Treatment Not on filedocumented as of this encounter Visit Diagnoses Not on filedocumented in this encounter Care Teams Heavy Truck Technician Relationship Specialty Start Date End Date Samantha Stauffer MD PCP - General Family Practice 12/12/191999 [place] [phone] documented as of this encounter
--- OUTSIDE RECORDS SUMMARY | 2022-01-25 10:26 | XMS_ITS | Encounter Summary ---
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) At risk for falling Maria Esther Phan MD [address] [place], [place] [address] Referral ID Status Reason Start Date Expiration Date Visits Requ ested Visits Authorized [id number] Closed 11/13/2020 11/13/2021 1 1 Encounter Details Date Type Department Care Team Description 12/04/2020 Therapy [facility] Carlos Cartwright, Prema n's disease (HRC) (Primary Dx); [facility] PT Impaired functional mobility, balance, g ait, and endurance Physical Therapy [address] [address] [phone] Social History Tobacco Use Types Packs/Day Years [...] discussion mentioned that they live close to [place] and it would be very difficult to attend physical therapy at this facility on a weekly to bi-weekly basis. After long discussion with patient and his , decision had been made for them to call [facility] and request a physical therapist that is certified in the OFERTALDIA program that could effectively treat patient with less stress on family (reducing driving). Did educate patient on different Parkinson's classes in the community, our [facility] PD programs and on LSFiFully BIG program. Patient and his were satisfied [...] Name Type Priority Associated Diagnoses Order [facility] Physical Therapy Referral Routine Parkinson's dis ease (HRC) Ordered: 11/13/2020 Dysphagia, unspe cified type Dyskinesia due to Parkinson' s disease (HRC) At risk for falling documented as of this encounter Visit Diagnoses Diagnosis Parkinson's disease (HRC) - Primary Impaired functional mobility, balance, g ait, and endurance documented in this encounter Care Teams Python Programmer Relationship Specialty Start Date End Date Samantha Stauffer MD PCP - General Family Practice 12/12/191999 [place] [address] documented as of this encounter
--- OUTSIDE RECORDS SUMMARY | 2022-01-25 10:26 | XMS_ITS | Encounter Summary ---
:1955 Author Organization [facility] Address [address], [place] [address] Care Team Providers Name Role Phone Samantha Stauffer MD Primary Care Provider [phone] Encounter Details Date Type Department Care Team Description 12/21/2020 [facility]phone [facility] Neuro[facility] Princess Phan, [place] [facility] [address] [place] [address] [place] [address] [phone] (Wo rk) Social History Tobacco Use Types [...] info edited w/ current number : ph. [phone]) Natasha reports that since decreasing RYTARY to [...] addressed first. Pt has an appt with [facility] in [place] tomorrow (12/25) as well as a f/u [...] disconnected. Number is disconnected. RN sent a Gogetit message encouraging them to give us a call. Chloé Denny 12/22/2020, 4:19 PM Chloé Denny - 12/21/2020 3:55 PM CDT RN attempted to call Natasha back 2 x @ . [phone] and line was disconnected (message states destination not assigned). Then called . [phone], no answer. [facility] Chloé Denny 12/21/2020, 3:57 PM Maria [...] on filedocumented in this encounter Care Teams Authorization Coordinator Relationship Specialty Start Date End Date Samantha Stauffer MD PCP - General Family Practice 12/12/191999 [place] [address] documented as of this encounter
--- OUTSIDE RECORDS SUMMARY | 2022-01-25 10:26 | XMS_ITS | Encounter Summary ---
:1955 Author Organization [facility] Address [address], [place] [address] Care Team Providers Name Role Phone Lurdes Thomas MD Primary Care Provider Reason for Referral Consult/Transfer Care (Routine) - Closed Specialty Diagnoses / Procedures Referred By Contact Refer red To Contact Neurosurgery Diagnoses Parkinson's disease (HRC) Maria Esther Phan MD McIver, Jon I, MD [address] [facility] [address] [place], [place] [address] [place] [address] Fax: Referral ID Status Reason Start Date Expiration Date Visits Requ ested Visits Authorized [id number] Closed 11/13/2019 02/11/2021 1 1 Scheduling Instructions Your provider [facility]. You may call [phone], option 2 to schedule your appointment. We suggest you call your health insurance breanna about your coverage and benefits for this appointment. Reason for Visit Reason Comments FYI DBS battery Encounter Details Date Type Department Care Team Description 11/13/2019 Telephone Maria Esther Mckeon (DB S battery) Neuroscience Center MD Prem Neurology [address] [facility] [address] [place] [address] [phone] (Wo rk) Social History Tobacco Use Types [...] him if he mixed systems (I.egot a [place] Sci battery, with Medtronic lead) this is [...] to call and schedule the battery replacement. [facility], can you facilitate with Dr. Kaiser's [...] Primary documented in this encounter Care Teams Saw Maker Relationship Specialty Start Date End Date Lurdes Thomas MD PCP - General 06/18/14 12/11/19 documented as of this encounter
--- OUTSIDE RECORDS SUMMARY | 2022-01-25 10:26 | XMS_ITS | Encounter Summary ---
:1955 Author Organization [facility] Address [address], [place] [address] Care Team Providers Name Role Phone Samantha Stauffer MD Primary Care Provider [phone] Reason for Visit Procedure/Equipment (Routine) - Incomplete Specialty Diagnoses / Procedures Referred By Contact Refer red To Contact Diagnoses Parkinson's disease ([facility]) Dysphagia, unspecified type Sylvester, Maria Esther Amaro MD Procedures FL Video Swallow Study [address] [place], [place] [address] Referral ID Status Reason Start Date Expiration Date Visits V isits Requested Authorized [id number] Incomplete 11/04/2020 02/03/2022 1 1 Encounter Details Date Type Department Care Team Description 11/19/2020 Ancillary [facility] Parashos, Pre-procedura l laboratory examination (Primary Dx); Procedure Neuroscience Center Maria Esther Amaro MD Parkinson's disease ([facility]); Radiology Fluoro [address] [place] Dysphagia, unspecified type [address] [place] [address] [place], [place] [phone] Social History Tobacco Use Types Packs/Day Years [...] dose documented in this encounter Care Teams Esthetician Relationship Specialty Start Date End Date Samantha Stauffer MD PCP - General Family Practice 12/12/191999 [place] [address] documented as of this encounter
--- OUTSIDE RECORDS SUMMARY | 2022-01-25 10:26 | XMS_ITS | Encounter Summary ---
:1955 Author Organization [facility] Address [address] [address] Care Team Providers Name Role Phone Samantha Stauffer MD Primary Care Provider [phone] Reason for Visit Reason Comments Refill Encounter Details Date Type Department Care Team Description 11/01/2020 Refill [facility] Neuroscience Maria Esther Reis MD Refill Center Neurology 3931 [facility] [address] [facility] [place] [address] [place] [address] [phone] Social History Tobacco Use Types Packs/Day Years [...] on filedocumented in this encounter Care Teams Waste Treatment Operator Relationship Specialty Start Date End Date Samantha Stauffer MD PCP - General Family Practice 12/12/191999 [place] [address] documented as of this encounter
--- OUTSIDE RECORDS SUMMARY | 2022-01-25 10:26 | XMS_ITS | Encounter Summary ---
:1955 Author Organization [facility] Address [address] [place] [address] Care Team Providers Name Role Phone Samantha Stauffer MD Primary Care Provider [phone] Reason for Referral Therapies (Routine) - Closed Specialty Diagnoses / Procedures Referred By Contact Refer red To Contact Diagnoses Parkinson's disease (HRC) Dysphagia, unspecified type Maria Esther Phan MD [address] [place], [place] [address] Referral ID Status Reason Start Date Expiration Date Visits Requ ested Visits Authorized [id number] Closed 10/28/2020 10/28/2021 999 999 Scheduling Instructions Your provider has recommended an appoint ment with a [facility] Speech Therapist. Please call for your appointment you may call [facility] Outpatient Rehabilitation at [phone]. We suggest you call your [facility] [facility] insurance company about your coverage and benefits for this appointment. Reason for Visit Reason Comments Pain Stomach and trouble swallowi ng Encounter Details Date Type Department Care Team Description 10/28/2020 [facility] MD Prem trouble swallowing) [facility] [address] [address] [place], [place] [phone] (Wo rk) Social History Tobacco Use Types [...] call and schedule the swallow study (ph. [phone]) Spouse reports that pt went to see a provider at [facility] last (10/29) and was prescribed generic Prilosec. This has been helpful thus far. They also saw pt's PCP this morning (11/04) who is recommending a GI consult. Dr. Phan: Do you have a preferred manufacturing area manager you would recommend to someone who has [...] (HRC) documented in this encounter Care Teams Dye Reel Operator Helper Relationship Specialty Start Date End Date Samantha Stauffer MD PCP - General Family Practice 12/12/191999 [place] [id number] documented as of this encounter
--- OUTSIDE RECORDS SUMMARY | 2022-01-25 10:26 | XMS_ITS | Encounter Summary ---
:1955 Author Organization [facility] Address [address] [address] Care Team Providers Name Role Phone Samantha Stauffer MD Primary Care Provider [phone] Reason for Visit Reason Comments Labs Needed Encounter Details Date Type Department Care Team Description 11/27/2019 Telephone [facility] 393 1 Neurosurgery Aurora Ruiz, RN Labs Needed [address] [place], [place] [address] Social History Tobacco Use Types Packs/Day Years Used Date Smoking Tobacco: Never Smokeless Tobacco: Never Alcohol Use Standard Drinks/Week Comments Yes 0 (1 standard drink = 0.6 oz pure alcoho l) Sex Assigned at Date Recorded Not on file documented as of this encounter Nursing Notes Aurora Ruiz, RN - 11/27/2019 3:36 PM CDT Covid test ordered. MRSA test ordered and faxed to [facility]. Emailed surgical teaching information. documented in this encounter Plan of Treatment Not on filedocumented as of this encounter Visit Diagnoses Diagnosis Preop testing - Primary Preoperative examination, unspecified documented in this encounter Care Teams Hotel Or Motel Cleaning Supervisor Relationship Specialty Start Date End Date Samantha Stauffer MD PCP - General Family Practice 12/12/191999 [place] [address] documented as of this encounter
--- OUTSIDE RECORDS SUMMARY | 2022-01-25 10:26 | XMS_ITS | Encounter Summary ---
:1955 Author Organization [facility] Address [address] [place] [address] Care Team Providers Name Role Phone Lurdes Thomas MD Primary Care Provider Reason for Referral Consult/Transfer Care (Routine) - Closed Specialty Diagnoses / Procedures Referred By Contact Refer red To Contact Diagnoses Parkinson's disease (HRC) Richard Phan MD [address] [place], [place] [address] Referral ID Status Reason Start Date Expiration Date Visits Requ ested Visits Authorized [id number] Closed 09/12/2019 12/11/2020 1 1 Scheduling Instructions Your provider has recommended an appoint ment with Jasmine Ramirez. You may call [phone] to schedule your appoi ntment. If you [...] 09/02/2019 [facility]phone [facility], [facility]; [facility] MD Prem UPDATE Neurology [address] [place] [address] [place], [place] [phone] (Wo rk) Social History Tobacco Use Types [...] Cates RN - 09/12/2019 11:36 AM CDT [facility] Matt Cates RN 09/12/2019, 11:37 AM [...] that we are restarting battery changes at [facility] with Dr. Kaiser, so if they wish [...] will be limited to drop off and turkey picker on the day of surgery. A [...] Primary documented in this encounter Care Teams Business Transformation Manager Relationship Specialty Start Date End Date Lurdes Thomas MD PCP - General 06/18/14 12/11/19 documented as of this encounter
--- OUTSIDE RECORDS SUMMARY | 2022-01-25 10:26 | XMS_ITS | Encounter Summary ---
:1955 Author Organization [facility] Address [address] [place] [address] Care Team Providers Name Role Phone Samantha Stauffer MD Primary Care Provider [phone] Reason for Visit Reason Comments RELEASE OF RECORDS Encounter Details Date Type Department Care Team Description 12/15/2020 Telephone [facility] Maria Esther Phan RELEASE OF RECORDS Neuroscience [facility] MD Prem Neurology [address] [phone] (Wo rk) Social History Tobacco Use Types [...] original note were not included. Records from [facility] received and sent to scanning. Kelly Encarnacion CMA 12/15/2020, 2:19 PM documented in this encounter Plan of Treatment Not on filedocumented as of this encounter Visit Diagnoses Not on filedocumented in this encounter Care Teams Diesel Crane Operator Relationship Specialty Start Date End Date Samantha Stauffer MD PCP - General Family Practice 12/12/191999 [place] [address] documented as of this encounter
--- OUTSIDE RECORDS SUMMARY | 2022-01-25 10:26 | XMS_ITS | Encounter Summary ---
:1955 Author Organization [facility] [employer] Address [address] [place] [address] [place] [address] Care Team Providers Name Role Phone Samantha Stauffer MD Primary Care Provider [phone] Reason for Visit Auth/Cert Specialty Diagnoses / Procedures Referred By Contact Refer red To Contact Diagnoses Parkinson's disease (HRC) Procedures RIGHT DEEP BRAIN STIMULATOR GENERATOR REPLACEMENT Referral ID Status Reason Start Date Expiration Date Visits Requ ested Visits Authorized [id number] 1 1 Encounter Details Date Type Department Care Team Description 12/12/2019 Surgery Yazidi Operating Jorge L Kaiser MD RIGHT DEEP BRAIN Room [address] [facility] STIMULATOR GENERATOR [address] [place], [place] [address] [phone] Social History Tobacco Use Types Packs/Day Years [...] upper arm muscles. This includes pushing a vacuum plastic forming machine operator or vacuum and mopping floors. [...] can you learn more? 1. Go to [email or web address]://CyActive/Complete Genomicsrary or Liiiike/Isolation SciencesraMOBi-LEARN. 2. Enter D150 in the search box. Current as of: April 09, 2019?Content Version: 12.4 ?? eFolder. Care instructions adapted under license by your healthcare professional. If you have questions abouta medical condition or this instruction, always ask your healthcare professional. eFolder disclaims any warranty or liability for your [...] on Keflex including possible side effects. Prescriptions [facility] in [place]. Belongings checklist reviewed with patient and belongings [...] Kaiser MD - 12/12/2019 8:17 AM CDT [facility] Operative Note Surgery Date: 12/12/2019 Primary Surgeon: [...] 8-10 minutes) Implants: Activa PC Model number [id number] Serial No: [id number] Post-op Diagnosis: Parkinson's Disease, Right Infraclavicular IPG [...] - Rapid (COVID-19) (12/12/2019 6:06 AM CDT) [facility] Method Time Signature COVID-19 Not Not 12/12/2019 [facility] Interpretation Detected Detected 7:04 AM CDT LABORATORY Specimen Anatomical Collection Method Collection Time Receive d Time (Source) Location / / Volume Laterality Swab (Source Non-blood 12/12/2019 6:06 AM 0 6:09 Required) Collection / CDT AM CDT Unknown Narrative [facility] - 12/12/2019 7:04 A M CDT Test performed by real-time PCR. This test has been authorized by the FDA under an Emergency Use Authorization (EUA) for use by authorized laboratories. Jorge L Kaiser MD LAB_1 Performing Organization Address City/State/ZIP Code Phon e Number [facility] [address] [place] [address] documented in this encounter Visit Diagnoses Diagnosis Parkinson's disease (HRC) - Primary Parkinson's disease (HRC) documented in this encounter Admitting Diagnoses Diagnosis Parkinson's disease (HRC) documented in this encounter Administered Medications Inactive Administered Medications - up to 3 most recent administrations Medication Order MAR Action Action Date Dose Rate Site bupivacaine-epinephrine PF Given 12/12/2019 7:58 AM CDT 20 mL (SENSORCAINE) 0.25% -1:[id number] injection ONCE PRN, Starting on Stacey 12/12/19 [...] (COMPLETED) 0735 (Given - Provider: Luis Anaya, DISH NETWORK INSTALLER, KITCHEN SUPERVISOR) 2 g, Intravenous, Administer over 30 [...] (Anesthesia Fluid - Provider: Luis Anaya APRN, KITCHEN SUPERVISOR) 25 mL/hr, Intravenous, at 25 mL/hr, [...] is ineffective., Post-op bupivacaine-epinephrine PF (SENSORCAINE) 0.25% -1:685181 injecti on 0758 (Given - Provider: Jorge [...] time as ORAL opioids. HOLD if on CORRECTION OFFICER CITY OR COUNTY JAIL., Post-op lidocaine (UROJET) 2 % prefilled syringe [...] time as IV opioids. HOLD if on [place] OFFICER [place] OR COUNTY JAIL., Post-op senna (SENOKOT) tablet 1-2 Tablet 1-2 Tablet, Oral, BID PRN, Other, Modera te Constipation, Starting Stacey 12/12/19 at 0830, Hold for loose stools, Post-op documented in this encounter Care Teams Furnace Attendant Relationship Specialty Start Date End Date Samantha Stauffer MD PCP - General Family Practice 12/12/191999 [place] [address] documented as of this encounter
--- OUTSIDE RECORDS SUMMARY | 2022-01-25 10:26 | XMS_ITS | Encounter Summary ---
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 [address] [place], [place] [phone] Social History Tobacco Use Types Packs/Day Years [...] any sensory deficits. There are no tremors. Atbeqm-ffuz-ppntst is accurate. There is mild bradykinesia. He [...] coordination documented in this encounter Care Teams Craft Worker Relationship Specialty Start Date End Date Lurdes Thomas MD PCP - General 06/18/14 12/11/19 documented as of this encounter
--- OUTSIDE RECORDS SUMMARY | 2022-01-25 10:26 | XMS_ITS | Encounter Summary ---
:1955 Author Organization [facility] Address [address] [place] [address] Care Team Providers Name Role Phone Samantha Stauffer MD Primary Care Provider [phone] Reason for Visit Reason Comments Nurse Visit Encounter Details Date Type Department Care Team Description 12/25/2019 Office Visit Specialty Center 3931 Nurse, P3931 Nsu En counter for post Neurosurgery surgical wound check 3931 [facility]. (Primary Dx) [place], [place] [address] Social History Tobacco Use Types Packs/Day Years [...] in another medication such as Percocet or Benedict). ?? If you are still taking prescription [...] Primary documented in this encounter Care Teams Leasing Coordinator Relationship Specialty Start Date End Date Samantha Stauffer MD PCP - General Family Practice 12/12/191999 [place] [address] documented as of this encounter
--- OUTSIDE RECORDS SUMMARY | 2022-01-25 10:26 | XMS_ITS | Encounter Summary ---
:1955 Author Organization [facility] Address [address] [place] [address] Care Team Providers Name Role Phone Samantha Stauffer MD Primary Care Provider Reason for Visit Reason Comments QUESTIONS, GENERAL Battery Encounter Details Date Type Department Care Team Description 12/07/2020 Telephone Health[facility] Esther Brower, GENERAL [facility] MD Prem (Battery ) Neurology 39[address] [facility] [address] [place] [address] [place], [place] [phone] (Wo rk) Social History Tobacco Use Types Packs/Day Years Used Date Smoking Tobacco: Never Smokeless Tobacco: Never Alcohol Use Standard Drinks/Week Comments Not Currently 0 (1 standard drink = 0.6 oz pure alcoho l) Sex Assigned at Date Recorded Not on file documented as of this encounter Nursing Notes Chloé Denny - 12/09/2020 3:53 PM CDT RN called pt's spouse back (ph. [phone]) to relay Dr. Phan' recommendations. Verbalizes understanding and they will adjust pt's RYTARY to tid first. RN also sent recommendations via Aviacode message. Encouraged to call back with any [...] on filedocumented in this encounter Care Teams Access Rep Relationship Specialty Start Date End Date Samantha Stauffer MD PCP - General Family Practice 12/12/191999 [place] [address] documented as of this encounter
--- OUTSIDE RECORDS SUMMARY | 2022-01-25 10:26 | XMS_ITS | Encounter Summary ---
:1955 Author Organization [facility] Address [address] [place] [address] Care Team Providers Name Role Phone Samantha Stauffer MD Primary Care Provider [phone] Reason for Visit Reason Comments Prior Authorization Request Amantadine HCl ER (GOCOVRI ) 137 MG CP24 Encounter Details Date Type Department Care Team Description 10/14/2021 [facility] MD Prem Request (Amantadine Neurology [address] HCl ER (GOCOVRI) [address] MG CP24) [place] [address] [place], [place] [phone] [phone] Social History Tobacco Use Types Packs/Day Years Used Date Smoking Tobacco: Never Smokeless Tobacco: Never Alcohol Use Standard Drinks/Week Comments Not Currently 0 (1 standard drink = 0.6 oz pure alcoho l) Sex Assigned at Date Recorded Not on file documented as of this encounter Nursing Notes Chloé Denny - 10/14/2021 2:35 PM CDT Approved Prior authorization approved Payer: [facility] CaseId:[id number];Status:Approved;Review Type:Prior Auth;Coverage Start Date:09/14/2021;Coverage End Date:10/14/2022; Approval Details Authorized from September 14, 2021 to October 14, 2022 Chloé Denny - 10/14/2021 1:09 PM CDT ePA requested through [facility]. Chloé Denny 10/14/2021, 1:09 PM Sylvia Burgess - 10/14/2021 9:10 AM CDT There is an approval through October 27 Recd fax from [employer], Please initiate new PA- Amantadine HCl ER (GOCOVRI) 137 MG CP24 Please see the providers right fax folder to review the fax for this TE. Sylvia Burgess 10/14/2021, 9:10 AM documented in this encounter Plan of Treatment Not on filedocumented as of this encounter Visit Diagnoses Not on filedocumented in this encounter Care Teams Herd Tester Relationship Specialty Start Date End Date Samantha Stauffer MD PCP - General Family Practice 12/12/191999 [place] [address] documented as of this encounter
--- OUTSIDE RECORDS SUMMARY | 2022-01-25 10:26 | XMS_ITS | Encounter Summary ---
:1955 Author Organization [facility] Address [address] [place] [address] Care Team Providers Name Role Phone Samantha Stauffer MD Primary Care Provider [phone] Reason for Visit Auth/Cert Specialty Diagnoses / Procedures Referred By Contact Refer red To Contact Diagnoses Parkinson's disease (HRC) Procedures RIGHT DEEP BRAIN STIMULATOR GENERATOR REPLACEMENT Referral ID Status Reason Start Date Expiration Date Visits Requ ested Visits Authorized [id number] 1 1 Encounter Details Date Type Department Care Team Description 12/12/2019 Hospital Encounter Episcopalian Operating Clementine Kaiser MD Parkinson's disease Room 3931 [facility] [address] [place] [address] [place] [address] [phone] Social History Tobacco Use Types Packs/Day Years [...] upper arm muscles. This includes pushing a trim and burr operator or vacuum and mopping floors. It [...] can you learn more? 1. Go to [email or web address] or Or[employer] Therapeutics/CCM BenchmarkraWordRake. 2. Enter D150 in the search box. Current as of: April 09, 2019?Content Version: 12.4 ?? Optify. Care instructions adapted under license by your healthcare professional. If you have questions abouta medical condition or this instruction, always ask your healthcare professional. Optify disclaims any warranty or liability for your [...] on Keflex including possible side effects. Prescriptions [facility] in [place]. Belongings checklist reviewed with patient and belongings [...] Kaiser MD - 12/12/2019 8:17 AM CDT [facility] Operative Note Surgery Date: 12/12/2019 Primary Surgeon: [...] 8-10 minutes) Implants: Activa PC Model number [id number] Serial No: [id number] Post-op Diagnosis: Parkinson's Disease, Right Infraclavicular IPG [...] - Rapid (COVID-19) (12/12/2019 6:06 AM CDT) [facility] Method Time Signature COVID-19 Not Not 12/12/2019 [facility] Interpretation Detected Detected 7:04 AM CDT LABORATORY Specimen Anatomical Collection Method Collection Time Receive d Time (Source) Location / / Volume Laterality Swab (Source Non-blood 12/12/2019 6:06 AM 0 6:09 Required) Collection / CDT AM CDT Unknown Narrative [facility] - 12/12/2019 7:04 A M CDT Test performed by real-time PCR. This test has been authorized by the FDA under an Emergency Use Authorization (EUA) for use by authorized laboratories. Jorge L Kaiser MD LAB_1 Performing Organization Address City/State/ZIP Code Phon e Number [facility] [address] [place] [address] documented in this encounter Visit Diagnoses Diagnosis Parkinson's disease (HRC) - Primary documented in this encounter Admitting Diagnoses Diagnosis Parkinson's disease (HRC) documented in this encounter Administered Medications Inactive Administered Medications - up to 3 most recent administrations Medication Order MAR Action Action Date Dose Rate Site bupivacaine-epinephrine PF Given 12/12/2019 7:58 AM CDT 20 mL (SENSORCAINE) 0.25% -1:[id number] injection ONCE PRN, Starting on Stacey 12/12/19 [...] (COMPLETED) 0735 (Given - Provider: Luis Anaya, GROUP HOME SUPERVISOR, VIDEO NETWORK ENGINEER) 2 g, Intravenous, Administer over 30 Min [...] (Anesthesia Fluid - Provider: Luis Anaya APRN, VIDEO NETWORK ENGINEER) 25 mL/hr, Intravenous, at 25 mL/hr, CONT [...] Lozenge, Oral, Q2H PRN, Throat Pain, Starting [facility] 12/12/19 at 0 957 bisacodyl (DULCOLAX) rectal suppository 10 mg 10 mg, Rectal, DAILY PRN, Other, Moderat e Constipation, Starting [facility] 12/12/19 at 0830, If unable to take oral senna (SENOKOT) or senna (SENOKOT) is ineffective., Post-op bupivacaine-epinephrine PF (SENSORCAINE) 0.25% -1:957255 injecti on 0758 (Given - Provider: Jorge L Kaiser MD) ONCE PRN, Starting [facility] 12/12/19 at 0758, Intra-op gentamicin 80 mg-clindamycin 900 mg in s odium chloride 1000 mL (DABS) irrigation solution 0802 (Given - Provid er: Jorge L Kaiser MD) ONCE PRN, Starting [facility] 12/12/19 at 0802, Intra-op HYDROcodone-acetaminophen (NORCO) 5-325 MG per tablet 1-2 Tablet 1-2 Tablet, Oral, Q4H PRN, Other, Modera te Pain (pain score 5-7), Starting [facility] 12/12/19 at 0830, Post-op HYDROmorphone (DILAUDID) injection 0.3-0.5 mg 0.3-0.5 mg, Intravenous, Q2H PRN, Other, Severe Pain (pain score 8-10) if unable to take oral medications or for pain score increasing by 3 in 30 minutes, Starting [facility] 12/12/19 at 1216, May administer 1 hour after ORAL opioid administration if given for pain score escalation. Do NOT administer at the same time as ORAL opioids. HOLD if on RN HOSPICE., Post-op lidocaine (UROJET) 2 % prefilled syringe [...] time as IV opioids. HOLD if on RN HOSPICE., Post-op senna (SENOKOT) tablet 1-2 Tablet 1-2 Tablet, Oral, BID PRN, Other, Modera te Constipation, Starting Stacey 12/12/19 at 0830, Hold for loose stools, Post-op documented in this encounter Care Teams Air Pollution Inspector Relationship Specialty Start Date End Date Samantha Stauffer MD PCP - General Family Practice 12/12/191999 [place] [address] documented as of this encounter
--- OUTSIDE RECORDS SUMMARY | 2022-01-25 10:26 | XMS_ITS | Encounter Summary ---
:1955 Author Organization [facility] Address [address] [place] [address] Care Team Providers Name Role Phone Samantha Stauffer MD Primary Care Provider [phone] Encounter Details Date Type Department Care Team Description 02/09/2021 Notes/Orders [facility] Neuroscience [facility] Speech Therap y [address] [place] [address] [id number] [place] [address] [phone] Social History Tobacco Use Types Packs/Day Years Used Date Smoking Tobacco: Never Smokeless Tobacco: Never Alcohol Use Standard Drinks/Week Comments Not Currently 0 (1 standard drink = 0.6 oz pure alcoho l) Sex Assigned at Date Recorded Not on file documented as of this encounter Progress Notes Mesfin Morgan SLP - 02/09/2021 10:30 AM CDT SPEECH THERAPY DISCHARGE NOTE Andrew Pang [phone] Payor: [facility] / Plan: [facility] OUT OF STATE / Product Type: Commercial [...] on filedocumented in this encounter Care Teams Soda Fountain Clerk Relationship Specialty Start Date End Date Samantha Stauffer MD PCP - General Family Practice 12/12/191999 [place] [address] documented as of this encounter
--- OUTSIDE RECORDS SUMMARY | 2022-01-25 10:26 | XMS_ITS | Encounter Summary ---
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 Reason for Visit Therapies (Routine) - Closed Specialty Diagnoses / Procedures Referred By Contact Refer red To Contact Diagnoses Parkinson's disease (HRC) Dysphagia, unspecified type Maria Esther Phan MD [address] [place] [address] 44 [phone] Referral ID Status Reason Start Date Expiration Date Visits Requ ested Visits Authorized [id number] Closed 10/28/2020 10/28/[phone] Encounter Details Date Type Department Care Team Description 11/19/2020 Office Visit [facility]fin Fong, Dysphagia, o ropharyngeal phase (Primary Dx); Neuroscience Center AIR LIFT OPERATOR Parkinson's disease (HRC); Speech Therapy [address] [place] [address] Hypokinetic Parkinsonian dysphonia (HRC) [address] [place] [id number] [address] [place] [address] [phone] Social History Tobacco Use Types Packs/Day Years [...] reach out to you soon. JB Samuels [facility] Licensed Speech Language Pathologist -- Outpatient [...] set to have EGD done tomorrow in [place], [place]. Hopefully this will lead to a [...] a regular diet with thin liquids [email or web address] Insurance Info: Today's Visit Number: 1 Progress [...] to IDDSI liquid framework: Davina Alegria, Mapping [employer]s Varibar Barium Products to the IDDSI Framework. IDDSI website. ht tps://iddsi.org/IDDSI/media/images/Publications/Umjawfw-Ovakwff-yo-IDDSI-Framewo rk.pdf. October 2016. Varibar Thin 40% IDDSI Level 0-Thin Varibar [place] 40% IDDSI Level 2-Mildly Thick Varibar Thin [...] Dysphonia documented in this encounter Care Teams Schedule Analyst Relationship Specialty Start Date End Date Samantha Stauffer MD PCP - General Family Practice 12/12/191999 [place] [address] documented as of this encounter
--- OUTSIDE RECORDS SUMMARY | 2022-01-25 10:26 | XMS_ITS | Encounter Summary ---
:1955 Author Organization [facility] Address [address], [place] [address] Care Team Providers Name Role Phone Samantha Stauffer MD Primary Care Provider [phone] Reason for Visit Auth/Cert Specialty Diagnoses / Procedures Referred By Contact Refer red To Contact Diagnoses Parkinson's disease (HRC) Procedures RIGHT DEEP BRAIN STIMULATOR GENERATOR REPLACEMENT Referral ID Status Reason Start Date Expiration Date Visits Requ ested Visits Authorized [id number] 1 1 Encounter Details Date Type Department Care Team Description 12/12/2019 Anesthesia Event Latter-Day Operating Migel Portillo MD [address] [place] [address] [facility] Nasim Armstrong MD [address] [facility] [place] [address] [place] [address] Anesthesia Record Procedure Summary Procedure [...] Portillo MD - 12/12/2019 11:16 AM CDT [facility] Anesthesia Post-op Note Patient: Andrew Chalberg Post-Op [...] Armstrong MD - 12/12/2019 7:16 AM CDT [facility] Anesthesia Pre-op Evaluation Procedure: Procedure(s): Right - [...] benefits and alternatives discussed with: Patient or Canvas Goods Fabricator agree tothe anesthesia treatment plan and Patient. [...] Intravenous, Administer over 30 Minutes, ONCE, On [place] 12/12/19 at 0615, For 1 dose, Infuse [...] mL/hr documented in this encounter Care Teams Rn Ante Partum Relationship Specialty Start Date End Date Samantha Stauffer MD PCP - General Family Practice 12/12/191999 [place] [address] documented as of this encounter
--- OUTSIDE RECORDS SUMMARY | 2022-01-25 10:26 | XMS_ITS | Encounter Summary ---
:1955 Author Organization [facility] Address [address] [address] Care Team Providers Name Role Phone Samantha Stauffer MD Primary Care Provider [phone] Reason for Visit Reason Comments QUESTIONS, GENERAL Encounter Details Date Type Department Care Team Description 07/24/2020 Telephone Health[facility] Esther Brower, GENERAL Neuroscience Center MD Prem Neurology 3931 [facility] [address] [place] [address] [phone] (Wo rk) Social History Tobacco Use Types [...] a follow up appt with him at [facility]. Jeannette Porras RN Maximo Sadler - 07/24/2020 9:50 AM CST Patient is requesting a call back regarding questions he has about covid vaccine and also about DBS battery. Please call back when available, Thank you. Maximo Julio 07/24/2020, 9:52 AM CONTROL REPRESENTATIVE documented in this encounter Plan of Treatment Not on filedocumented as of this encounter Visit Diagnoses Not on filedocumented in this encounter Care Teams Garage Door Opener Installer Relationship Specialty Start Date End Date Samantha Stauffer MD PCP - General Family Practice 12/12/191999 [place] [address] documented as of this encounter
--- OUTSIDE RECORDS SUMMARY | 2022-01-25 10:26 | XMS_ITS | Encounter Summary ---
:1955 Author Organization [facility] Address [address], [place] [address] Care Team Providers Name Role Phone Samantha Stauffer MD Primary Care Provider [phone] Reason for Referral Medication Prior Authorization (Routine) - Authorized Specialty Diagnoses / Procedures Referred By Contact Refer red To Contact Maria Esther Phan MD 3931 [place], [place] [address] Referral ID Status Reason Start Date Expiration Date Visits V isits Requested Authorized [id number] Authorized 1 1 PACKAGER Reason for Visit Reason Onset Date Comments Refill 07/15/2020 Amantadine HCl ER (G OCOVRI) 137 MG CP24 Encounter Details Date Type Department Care Team Description 07/15/2020 [facility] (Amantadine HCl Neuroscience Center MD Prem ER (GOCOVRI) 137 MG Neurology 3931 [facility] CP24) [address] [place] [address] [phone] (Wo rk) Social History Tobacco Use Types [...] at bedtime. Sheldon Mays 07/15/2020, 8:49 AM PACKAGER documented in this encounter Plan of Treatment Not on filedocumented as of this encounter Visit Diagnoses Not on filedocumented in this encounter Care Teams Insulation Blower Relationship Specialty Start Date End Date Samantha Stauffer MD PCP - General Family Practice 12/12/191999 [place] [address] documented as of this encounter
--- OUTSIDE RECORDS SUMMARY | 2022-01-25 10:26 | XMS_ITS | Encounter Summary ---
:1955 Author Organization [facility] Address [address] [place] [address] Care Team Providers Name Role Phone Samantha Stauffer MD Primary Care Provider [phone] Reason for Visit Reason Comments Post-Op Check Encounter Details Date Type Department Care Team Description 01/24/2020 [facility] 3931 Divina Kaiser MD Parkinson's disease Neurosurgery 3931 [facility] (Primary Dx) [facility] [address] [phone] Social History Tobacco Use Types Packs/Day Years [...] Primary documented in this encounter Care Teams Gas Treater Relationship Specialty Start Date End Date Samantha Stauffer MD PCP - General Family Practice 12/12/191999 [place] [address] documented as of this encounter
--- OUTSIDE RECORDS SUMMARY | 2022-01-25 10:26 | XMS_ITS | Encounter Summary ---
:1955 Author Organization [facility] Address [address] [place] [address] Care Team Providers Name Role Phone Samantha Stauffer MD Primary Care Provider [phone] Encounter Details Date Type Department Care Team Description 07/14/2021 Telephone [employer] Neuroscience Princess Phan, Center Neurology [address] [place] [address] [place] [address] [phone] (Wo rk) Social History Tobacco Use Types [...] verbalizes understanding. Chloé Denny 07/16/2021, 5:09 PM E BENDER FURNACE TENDER Doris Slaughter RN - 07/16/2021 4:43 PM CST RN looked at RX, PA approval through 10/2021. Doris Slaughter RN 07/16/2021, 4:44 PM E BENDER FURNACE TENDER Karin Dill - 07/16/2021 4:39 PM CST Pt calling stating they need a PA for this rx, please advise, thanks! Karin Dill 07/16/2021, 4:40 PM E BENDER FURNACE TENDER Chloé Denny - 07/16/2021 2:05 PM CST Prescription form not necessary. RN spoke with pharmacy this morning and gave verbal. Sheldon Merlos - 07/16/2021 1:06 PM CST Images from the original note were not included. Recd universal prescription/ pharmacy intake form from [facility] Placed in providers right fax Sheldon Mays 07/16/2021, 1:07 PM E BENDER FURNACE TENDER Chloé Denny - 07/16/2021 9:31 AM CST RN called [facility] (ph. [phone]) to give additional information per pt request [...] please call Cristhian Dueñas 07/14/2021, 12:13 PM E BENDER FURNACE TENDER documented in this encounter Plan of Treatment Not on filedocumented as of this encounter Visit Diagnoses Not on filedocumented in this encounter Care Teams Cardiology Tech Relationship Specialty Start Date End Date Samantha Stauffer MD PCP - General Family Practice 12/12/191999 [place] [address] documented as of this encounter
--- OUTSIDE RECORDS SUMMARY | 2022-01-25 10:26 | XMS_ITS | Encounter Summary ---
:1955 Author Organization [facility] Address [address] [place] [address] Care Team Providers Name Role Phone Lurdes Thomas MD Primary Care Provider Reason for Visit Reason Comments Concerns Battery getting low Encounter Details Date Type Department Care Team Description 08/28/2019 Telephone [facility] Esther Walker Concern s (Battery Neuroscience Center MD Prem getting low) Neurology 39[address] [facility] [address] [place] [address] [place], [place] [phone] (Wo rk) Social History Tobacco Use Types [...] 09/13/2019. Please help them set up the [employer] madhav. Matt Cates RN 08/28/2019, 3:04 PM [...] on filedocumented in this encounter Care Teams Bench Tool Maker Relationship Specialty Start Date End Date Lurdes Thomas MD PCP - General 06/18/14 12/11/19 documented as of this encounter
--- OUTSIDE RECORDS SUMMARY | 2022-01-25 10:26 | XMS_ITS | Encounter Summary ---
:1955 Author Organization [facility] Address [address], [place] [address] Care Team Providers Name Role Phone Lurdes Thomas MD Primary Care Provider Reason for Visit Reason Comments Refill Encounter Details Date Type Department Care Team Description 08/21/2019 Refill [facility] Neuroscience Maria Esther Reis MD Refill Center Neurology 3931 [facility] [address] [place] [address] [place] [address] [phone] Social History Tobacco Use Types Packs/Day Years [...] filedocumented in this encounter Care Teams Diesel Mechanic Relationship Specialty Start Date End Date Lurdes Thomas MD PCP - General 06/18/14 12/11/19 documented as of this encounter
--- OUTSIDE RECORDS SUMMARY | 2022-01-25 10:26 | XMS_ITS | Encounter Summary ---
:1955 Author Organization [facility] Address [address], [place] [address] Care Team Providers Name Role Phone Samantha Stauffer MD Primary Care Provider Reason for Visit Reason Comments Refill Encounter Details Date Type Department Care Team Description 05/18/2021 Refill [facility] Neuroscience Maria Esther Reis MD Refill Center Neurology 3931 [facility] [address] [place] [address] [place] [address] [phone] Social History Tobacco Use Types Packs/Day Years [...] on filedocumented in this encounter Care Teams Coat Examiner Relationship Specialty Start Date End Date Samantha Stauffer MD PCP - General Family Practice 12/12/191999 [place] [address] documented as of this encounter
--- OUTSIDE RECORDS SUMMARY | 2022-01-25 10:26 | XMS_ITS | Encounter Summary ---
:1955 Author Organization [facility] Address [address], [place] [address] Care Team Providers Name Role Phone Samantha Stauffer MD Primary Care Provider [phone] Reason for Visit Reason Comments Refill Encounter Details Date Type Department Care Team Description 05/24/2020 Refill [facility] Neuroscience Maria Esther Reis MD Refill Center Neurology 3931 [facility] [address] [place] [address] [place] [address] [phone] Social History Tobacco Use Types Packs/Day Years [...] on filedocumented in this encounter Care Teams Adjunct Professor Relationship Specialty Start Date End Date Samantha Stauffer MD PCP - General Family Practice 12/12/191999 [place] [address] documented as of this encounter
--- OUTSIDE RECORDS SUMMARY | 2022-01-25 10:26 | XMS_ITS | Encounter Summary ---
:1955 Author Organization [facility] Address [address] [place] [address] Care Team Providers Name Role Phone Samantha Stauffer MD Primary Care Provider [phone] Encounter Details Date Type Department Care Team Description 08/27/2021 Office Visit Maria Esther Mckeon on's disease (HRC) (Primary Dx); Neuroscience Center MD Prem Dyskinesia due to Parkinson's disease (H RC) Neurology [address] [place] [address] [place], [place] [phone] Social History Tobacco Use Types Packs/Day Years [...] coordination documented in this encounter Care Teams Waterproofing Mixer Relationship Specialty Start Date End Date Samantha Stauffer MD PCP - General Family Practice 12/12/191999 [place] [address] documented as of this encounter
--- OUTSIDE RECORDS SUMMARY | 2022-01-25 10:26 | XMS_ITS | Encounter Summary ---
:1955 Author Organization [facility] Address [address] [place] [address] Care Team Providers Name Role Phone Lurdes Thomas MD Primary Care Provider Reason for Visit Reason Comments QUESTIONS, GENERAL Encounter Details Date Type Department Care Team Description 09/17/2019 Telephone [facility] Maria Esther Phan, GENERAL Neuroscience Center MD Prem Neurology 3931 [facility] [address] [place] [phone] (Wo rk) Social History Tobacco Use Types [...] the top of his limit. Gave him [facility] DBS nurse line to call if he had programing questions. FYI. Maria Esther Phan MD - 09/23/2019 12:30 PM CDT OK, I will ask nursing for DBS programming with [facility], to see if we can put off [...] Phan may have patient to go to [facility] to have an adjustment. They would be interested in this if it is a possibility. Dr. Phan, please review and advise. Matt Cates RN 09/23/2019, 12:18 PM Sylvia Burgess - 09/23/2019 10:10 AM CDT Spouse called in, wanting to speak with Blaise about his battery and could be that it needs adjusting.Please call [phone] Sylvia Burgess 09/23/2019, 10:11 AM Matt Cates [...] on filedocumented in this encounter Care Teams Commissions Analyst Relationship Specialty Start Date End Date Lurdes Thomas MD PCP - General 06/18/14 12/11/19 documented as of this encounter
--- OUTSIDE RECORDS SUMMARY | 2022-01-25 10:26 | XMS_ITS | Encounter Summary ---
:1955 Author Organization [facility] Address [address] [place] [address] Care Team Providers Name Role Phone Samantha Stauffer MD Primary Care Provider [phone] Reason for Visit Reason Comments Medication Questions Encounter Details Date Type Department Care Team Description 12/30/2020 Telephone [facility] Esther Walker Medicat ion Questions Neuroscience Center MD Prem Neurology [address] [facility] [address] [place] [address] [place], [place] [phone] (Wo rk) Social History Tobacco Use Types [...] parkinson's. Dr. Thompson can be reached at [phone]. Thank you documented in this encounter Plan of Treatment Not on filedocumented as of this encounter Visit Diagnoses Not on filedocumented in this encounter Care Teams Functional Tester Relationship Specialty Start Date End Date Samantha Stauffer MD PCP - General Family Practice 12/12/191999 [place] [address] documented as of this encounter
--- OUTSIDE RECORDS SUMMARY | 2022-01-25 10:26 | XMS_ITS | Encounter Summary ---
:1955 Author Organization [facility] Address [address] [place] [address] Care Team Providers Name Role Phone Samantha Stauffer MD Primary Care Provider [phone] Encounter Details Date Type Department Care Team Description 11/20/2019 [facility] 3931 Clementine Kaiser MD Neurosurgery [address] [address] [phone] Social History Tobacco Use Types Packs/Day Years [...] on filedocumented in this encounter Care Teams Magisterial District Judge Relationship Specialty Start Date End Date Samantha Stauffer MD PCP - General Family Practice 12/12/191999 [place] [address] documented as of this encounter
--- OUTSIDE RECORDS SUMMARY | 2022-01-25 10:27 | XMS_ITS | Encounter Summary ---
:1955 Author Organization [facility] Address [address] [address] Care Team Providers Name Role Phone Lurdes Thomas MD Primary Care Provider Reason for Visit Procedure/Equipment (Routine) - Incomplete Specialty Diagnoses / Procedures Referred By Contact Refer red To Contact Diagnoses Dysphagia, oropharyngeal phase [place], Maria Esther Amaro MD Procedures [place] Video Swallow Study 39[address] [place], [place] [address] Referral ID Status Reason Start Date Expiration Date Visits V isits Requested Authorized [id number] Incomplete 06/24/2019 09/22/2020 1 1 Encounter Details Date Type Department Care Team Description 06/24/2019 Ancillary [facility] [place], Dysphagia, Procedure Neuroscience Center Maria Esther Amaro MD oropharyngeal phase Radiology Fluoro [address] [place] [address] [place] [address] [facility] [phone] [place] [address] Social History Tobacco Use Types Packs/Day [...] PM Dysphagia, Resul ts for this STUDY BRUSH MAKER oropharyngeal phase procedur e are in the results section. documented in this encounter Results FL Video Swallow Study (06/24/2019 4:10 PM BRUSH MAKER) Anatomical Region Laterality Modality Neck, Chest Radio Fluoroscopy Specimen (Source) Anatomical Collection Method Collection Time Re ceived Time Location / / Volume Laterality 06/24/2019 4:10 PM BRUSH MAKER Narrative 06/24/2019 5:11 PM BRUSH MAKER EXAM: FL VIDEO SWALLOW STUDY LOCATION: [facility] DATE/TIME: 06/24/2019 4:10 PM INDICATION: [...] original. EXAM: FL VIDEO SWALLOW STUDY LOCATION: [facility] DATE/TIME: 06/24/2019 4:10 PM INDICATION: [...] (VARIBAR NECTAR) 40 Given 06/24/2019 4:12 PM BRUSH MAKER 20 mL % oral suspension 20 mL 20 mL, Oral, ONCE (NON-SCHEDULED), Starting on 06/24/19 at 1611, Until Discontinued, For 3 doses Inactive Administered Medications - up to 3 most recent administrations Medication Order MAR Action Action Date Dose Rate Site barium sulfate (ENTERO VU) Given 06/24/2019 4:12 PM BRUSH MAKER 20 mL suspension 20 mL 20 mL, Oral, ONCE (NON-SCHEDULED), Starting on Mon06/24/19 at 1611, For 1 dose barium sulfate (EZ-DISK) tablet 700 mg Given 06/24/2019 4:12 PM BRUSH MAKER 700 mg 700 mg, Oral, ONCE (NON-SCHEDULED), Starting on 06/24/19 at 1611, Until Mon06/24/19 at 1612, For 1 dose barium Sulfate (VARIBAR PUDDING) oral pudding 5 Given 06/24/2019 4:12 PM BRUSH MAKER 5 mL mL 5 mL, Oral, ONCE (NON-SCHEDULED), Starting on 06/24/19 at 1611, Until Mon06/24/19 at 1612, For 1 dose documented in this encounter Care Teams Cutter First Relationship Specialty Start Date End Date Lurdes Thomas MD PCP - General 06/18/14 12/11/19 documented as of this encounter
--- OUTSIDE RECORDS SUMMARY | 2022-01-25 10:27 | XMS_ITS | Encounter Summary ---
:1955 Author Organization [facility] Address [address], [place] [address] Care Team Providers Name Role Phone Lurdes Thomas MD Primary Care Provider Reason for Visit Reason Onset Date Comments Refill 08/01/2019 Encounter Details Date Type Department Care Team Description 08/01/2019 Refill [facility] Neuroscience Maria Esther Reis MD Refill Center Neurology 3931 [facility] [address] [facility] [place] [address] [place] [address] [phone] Social History Tobacco Use Types Packs/Day Years [...] at bedtime Qty: 60 Last Refill: 07/08/2019 Spinning Bath Patroller/Appt Center: Was the pharmacy entered into the Preferred Pharmacy field? Yes Abi Laughlin 08/01/2019, 10:31 AM documented in this encounter Plan of Treatment Not on filedocumented as of this encounter Visit Diagnoses Not on filedocumented in this encounter Care Teams Bow Maker Custom Relationship Specialty Start Date End Date Lurdes Thomas MD PCP - General 06/18/14 12/11/19 documented as of this encounter
--- OUTSIDE RECORDS SUMMARY | 2022-01-25 10:27 | XMS_ITS | Encounter Summary ---
:1955 Author Organization [facility] Address [address], [place] [address] Care Team Providers Name Role Phone Lurdes Thomas MD Primary Care Provider Reason for Visit Reason Comments Paperwork Gocovri Encounter Details Date Type Department Care Team Description 08/09/2017 Notes/Orders [facility] Doris Arauz, RN [address] [place], [place] [address] Social History Tobacco Use Types Packs/Day Years Used Date Smoking Tobacco: Never Smokeless Tobacco: Never Alcohol Use Standard Drinks/Week Comments Yes 0 (1 standard drink = 0.6 oz pure alcoho l) Sex Assigned at Date Recorded Not on file documented as of this encounter Progress Notes Doris Arauz RN - 08/09/2017 2:43 PM CDT Faxed completed [employer] paperwork and Rx to [employer]. FAX: [phone] documented in this encounter Plan of Treatment Not on filedocumented as of this encounter Visit Diagnoses Not on filedocumented in this encounter Care Teams Pediatric Assistant Relationship Specialty Start Date End Date Lurdes Thomas MD PCP - General 06/18/14 12/11/19 documented as of this encounter
--- OUTSIDE RECORDS SUMMARY | 2022-01-25 10:27 | XMS_ITS | Encounter Summary ---
:1955 Author Organization [facility] Address [address], [place] [address] Care Team Providers Name Role Phone Lurdes Thomas MD Primary Care Provider Reason for Visit Reason Comments Prior Authorization For Medication Gocovri Encounter Details Date Type Department Care Team Description 08/15/2017 Telephone [facility] Doris Arauz, Prior Authorization For [address] [place] prefabricator (Gocovri) [place], [place] [address] Social History Tobacco Use Types Packs/Day Years [...] phone. Pt's Insurer: Eleazar Insurer's contact #: [phone] Name of Drug: Goocovri 137mg Dx for Drug: dyskinesia due to PD medications Tried/failed drugs: Amantadine Medication was approved. Approval dates: 07/16/17 to 08/15/18 Case#: [id number] FYI documented in this encounter Plan of Treatment Not on filedocumented as of this encounter Visit Diagnoses Not on filedocumented in this encounter Care Teams Show Host/Hostess Relationship Specialty Start Date End Date Lurdes Thomas MD PCP - General 06/18/14 12/11/19 documented as of this encounter
--- OUTSIDE RECORDS SUMMARY | 2022-01-25 10:27 | XMS_ITS | Encounter Summary ---
:1955 Author Organization [facility] Address [address] [place] [address] Care Team Providers Name Role Phone Lurdes Thomas MD Primary Care Provider Encounter Details Date Type Department Care Team Description 04/12/2019 Telephone [facility] Neuroscience Princess Phan, Center Neurology [address] [facility] [address] [place] [address] [place] [address] [phone] (Wo rk) Social History Tobacco Use Types [...] folder as COURT Laughlin 04/12/2019, 2:20 PM ATOR OPERATOR documented in this encounter Plan of Treatment Not on filedocumented as of this encounter Visit Diagnoses Not on filedocumented in this encounter Care Teams Business Development Agent Relationship Specialty Start Date End Date Lurdes Thomas MD PCP - General 06/18/14 12/11/19 documented as of this encounter
--- OUTSIDE RECORDS SUMMARY | 2022-01-25 10:27 | XMS_ITS | Encounter Summary ---
:1955 Author Organization [facility] Address [address] [place] [address] Care Team Providers Name Role Phone Lurdes Thomas MD Primary Care Provider Reason for Visit Reason Comments Follow-up Encounter Details Date Type Department Care Team Description 11/02/2018 Office Visit [place] Mckeon's d iseasmono (HRC) (Primary Dx); Neuroscience Center Maria Esther Amaro MD Dyskinesia due to Parkinson's disease (H RC); Neurology [address] [place] Vasovagal syncope; [address] [address] [place], [place] [phone] [id number] Social History Tobacco Use Types Packs/Day Years [...] without abnormal responses. There are no tremors. Whozhe-ceki-xsrxxc and hvfa-bhtk-iukp are accurate. There is minimal if any [...] unspecified documented in this encounter Care Teams Lighting Specialist Relationship Specialty Start Date End Date Lurdes Thomas MD PCP - General 06/18/14 12/11/19 documented as of this encounter
--- OUTSIDE RECORDS SUMMARY | 2022-01-25 10:27 | XMS_ITS | Encounter Summary ---
:1955 Author Organization [facility] [facility] Address [address], [place] [address] Care Team Providers Name Role Phone Lurdes Thomas MD Primary Care Provider Reason for Visit Reason Comments Other Encounter Details Date Type Department Care Team Description 12/07/2017 Telephone [facility] Doris Arauz, RN Other [address] [place], [place] [address] Social History Tobacco Use Types Packs/Day Years Used Date Smoking Tobacco: Never Smokeless Tobacco: Never Alcohol Use Standard Drinks/Week Comments Yes 0 (1 standard drink = 0.6 oz pure alcoho l) Sex Assigned at Date Recorded Not on file documented as of this encounter Nursing Notes Doris Arauz, RN - 12/07/2017 2:28 PM CDT Received call from [employer]. They have been trying to call Andrew to schedule shipment of Daj[employer]ao and unable to reach him. Called and LM for Andrew asking him to call [employer] at [phone]. [employer] will mail a letter also, asking him to call them. documented in this encounter Plan of Treatment Not on filedocumented as of this encounter Visit Diagnoses Not on filedocumented in this encounter Care Teams Stock Mixer Relationship Specialty Start Date End Date Lurdes Thomas MD PCP - General 06/18/14 12/11/19 documented as of this encounter
--- OUTSIDE RECORDS SUMMARY | 2022-01-25 10:27 | XMS_ITS | Encounter Summary ---
:1955 Author Organization [facility] Address [address], [place] [address] Care Team Providers Name Role Phone Lurdes Thomas MD Primary Care Provider Reason for Visit Reason Onset Date Comments Refill 07/31/2018 Encounter Details Date Type Department Care Team Description 07/31/2018 Refill [facility] Neuroscience Maria Esther Reis MD Refill Center Neurology 3931 [facility] [address] [facility] [place] [address] [place] [address] [phone] Social History Tobacco Use Types Packs/Day Years [...] in this encounter Care Teams Professor Of Medicine Relationship Specialty Start Date End Date Lurdes Thomas MD PCP - General 06/18/14 12/11/19 documented as of this encounter
--- OUTSIDE RECORDS SUMMARY | 2022-01-25 10:27 | XMS_ITS | Encounter Summary ---
:1955 Author Organization [facility] Address [address], [place] [address] Care Team Providers Name Role Phone Lurdes Thomas MD Primary Care Provider Reason for Visit Reason Comments QUESTIONS, GENERAL Encounter Details Date Type Department Care Team Description 05/04/2018 Telephone [facility] Esther Walker, GENERAL [facility] MD Prem Neurology 3931 [facility] [address] [place] [phone] (Wo rk) Social History Tobacco Use Types [...] advise . Jeannette Michael 05/04/2018, 10:51 AM C S S REPRESENTATIVE documented in this encounter Plan of Treatment Not on filedocumented as of this encounter Visit Diagnoses Not on filedocumented in this encounter Care Teams Package Dyer Relationship Specialty Start Date End Date Lurdes Thomas MD PCP - General 06/18/14 12/11/19 documented as of this encounter
--- OUTSIDE RECORDS SUMMARY | 2022-01-25 10:27 | XMS_ITS | Encounter Summary ---
:1955 Author Organization [facility] Address [address], [place] [address] Care Team Providers Name Role Phone Lurdes Thomas MD Primary Care Provider Reason for Visit Reason Comments Follow-up, NOS PD Encounter Details Date Type Department Care Team Description 05/04/2018 Office Visit Richard Mckeon on's disease (HRC) (Primary Dx); [facility] MD Prem Dyskinesia due to Parkinson's disease (H RC); Neurology 3931 [facility] Vasovagal syncope [address] [place] [address] [place], [place] [phone] Social History Tobacco Use Types Packs/Day Years Used Date Smoking Tobacco: Never Smokeless Tobacco: Never Alcohol Use Standard Drinks/Week Comments Yes 0 (1 standard drink = 0.6 oz pure alcoho l) Sex Assigned at Date Recorded Not on file documented as of this encounter Last Filed Vital Signs Vital Sign Reading Time Taken Comments Blood Pressure 118/73 05/04/2018 3:45 PM CATERING CHEF Pulse 85 05/04/2018 3:45 PM CATERING CHEF Temperature - - Respiratory Rate - - Oxygen Saturation - - Inhaled Oxygen Concentration - - Weight 80.1 kg (176 lb 9.6 oz) 05/04/2018 3:45 PM CATERING CHEF Height 185.4 cm (6' 1) 05/04/2018 3:45 PM CATERING CHEF Body Mass Index 23.3 05/04/2018 3:45 PM CATERING CHEF documented in this encounter Patient Instructions Patient InstructionsRichard Phan MD - 05/04/2018 3:45 PM CST A good site to look for clinical trials in Parkinson's is clinicaltrials.gov RING CHEF documented in this encounter Progress Notes Richard Phan MD - 05/04/2018 12:00 AM CST DEIDRE PANG CSN: [id number] CLINIC NOTE NEUROLOGY PROGRESS NOTE DATE OF SERVICE: 05/04/2018 : 1955 CHIEF COMPLAINT: Followup Parkinson's. HISTORY OF PRESENT ILLNESS: Mr. Pang was seen in the company of his in followup of his Parkinson's. Last time I saw him was in July at [place]. He has done reasonably well since then. [...] without abnormal responses. There are no tremors. Wihjsb-lgog-xjfqfk and lbzf-zmku-cdqx are accurate. There is minimal if any [...] visit: 15 minutes. RICHARD PHAN MD SAP/MODL /[id number] RING CHEF documented in this encounter Plan of Treatment Not on filedocumented as of this encounter Visit Diagnoses Diagnosis Parkinson's disease (HRC) - Primary Dyskinesia due to Parkinson's disease (H RC) Lack of coordination Vasovagal syncope Syncope and collapse documented in this encounter Care Teams Wet Pour Supervisor Relationship Specialty Start Date End Date Lurdes Thomas MD PCP - General 06/18/14 12/11/19 documented as of this encounter
--- OUTSIDE RECORDS SUMMARY | 2022-01-25 10:27 | XMS_ITS | Encounter Summary ---
:1955 Author Organization [facility] Address [address] [place] [address] Care Team Providers Name Role Phone Lurdes Thomas MD Primary Care Provider Reason for Visit Reason Comments Refill Encounter Details Date Type Department Care Team Description 06/03/2019 Refill [facility] Neuroscience Maria Esther Reis MD Refill Center Neurology 3931 [facility] [address] [place] [address] [place] [address] [phone] Social History Tobacco Use Types Packs/Day Years Used Date Smoking Tobacco: Never Smokeless Tobacco: Never Alcohol Use Standard Drinks/Week Comments Yes 0 (1 standard drink = 0.6 oz pure alcoho l) Sex Assigned at Date Recorded Not on file documented as of this encounter Nursing Notes Rachel Brown RN - 06/03/2019 1:11 PM CST Incorrect provider. Rachel Brown RN CIPAL CLERK TYPIST documented in this encounter Plan of Treatment Not on filedocumented as of this encounter Visit Diagnoses Not on filedocumented in this encounter Care Teams Cracker Sprayer Relationship Specialty Start Date End Date Lurdes Thomas MD PCP - General 06/18/14 12/11/19 documented as of this encounter
--- OUTSIDE RECORDS SUMMARY | 2022-01-25 10:27 | XMS_ITS | Encounter Summary ---
:1955 [facility] Address [address] [address] Care Team Providers Name Role Phone Lurdes Thomas MD Primary Care Provider Reason for Visit Reason Comments Dysphagia Encounter Details Date Type Department Care Team Description 06/24/2019 Office Visit [facility], [facility] oropharyngeal phase Speech Therapy [address] (Primary Dx) [address] [place], [place] [id number] [place] [address] [phone] Social History Tobacco Use Types Packs/Day Years [...] goals established as no further intervention from RECORD LABEL INTERN service is warranted at this time. VISIT INFORMATION [facility] Insurance Info: Today's Visit Number: 1 [...] Today: Exam completed Results reviewed. Pt and RECORD LABEL INTERN watched MBSS video together with RECORD LABEL INTERN pointing out anatomical landmarks and explaining how [...] Total Treatment Time: 35 minutes Nabila Morrell CCC-RECORD LABEL INTERN 06/24/2019 TRAL SCIENTIST documented in this encounter Plan of Treatment Not on filedocumented as of this encounter Visit Diagnoses Diagnosis Dysphagia, oropharyngeal phase - Primary documented in this encounter Care Teams Animal Rescuer Relationship Specialty Start Date End Date Lurdes Thomas MD PCP - General 06/18/14 12/11/19 documented as of this encounter
--- OUTSIDE RECORDS SUMMARY | 2022-01-25 10:27 | XMS_ITS | Encounter Summary ---
:1955 Author [facility] Address [address] [address] Care Team Providers Name Role Phone Lurdes Thomas MD Primary Care Provider Reason for Visit Reason Comments Refill Encounter Details Date Type Department Care Team Description 07/31/2018 Telephone [facility] Shawnee Hilario, RN Refill [address] [place], [place] [address] Social History Tobacco Use [...] Hilario RN - 07/31/2018 10:11 AM CDT [facility] calling for refill on [employer]. To be faxed to [phone]. He is seen at [facility], not [facility]. Please take care of. documented in this encounter Plan of Treatment Not on filedocumented as of this encounter Visit Diagnoses Not on filedocumented in this encounter Care Teams Materials Specialist Relationship Specialty Start Date End Date Serum, Lurdes C, MD PCP - General 06/18/14 12/11/19 documented as of this encounter
--- OUTSIDE RECORDS SUMMARY | 2022-01-25 10:27 | XMS_ITS | Encounter Summary ---
:1955 Author Organization [facility] Address [address] [place] [address] Care Team Providers Name Role Phone Lurdes Thomas MD Primary Care Provider Reason for Visit Reason Comments Device Check Consult/Transfer Care (Routine) - Closed Specialty Diagnoses / Procedures Referred By Contact Refer red To Contact Diagnoses Parkinson's disease ([facility]) Maria Esther Phan MD [address] [place], [place] [address] Referral ID Status Reason Start Date Expiration Date Visits Requ ested Visits Authorized [id number] Closed 08/08/2017 11/07/2018 1 1 Encounter Details Date Type Department Care Team Description 08/08/2017 Nursing Visit [facility] [place] Hilario, Parkinson's disease ([facility]) (P rimary Dx); [address] RN 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
--- OUTSIDE RECORDS SUMMARY | 2022-01-25 10:27 | XMS_ITS | Encounter Summary ---
:1955 Author Organization [facility] Address [address] [place] [address] Care Team Providers Name Role Phone Lurdes Thomas MD Primary Care Provider Reason for Visit Reason Comments Prior Authorization Request Encounter Details Date Type Department Care Team Description 08/03/2018 Telephone DNART LIMITADAMaria Esther Walker [facility] MD Prem Request Neurology 39[address] [place] [facility] [address] [facility] [place] [address] [place], [place] [phone] Social History Tobacco Use Types Packs/Day Years [...] on filedocumented in this encounter Care Teams Electroplating Technician Relationship Specialty Start Date End Date Lurdes Thomas MD PCP - General 06/18/14 12/11/19 documented as of this encounter
--- OUTSIDE RECORDS SUMMARY | 2022-01-25 10:27 | XMS_ITS | Encounter Summary ---
:1955 Author Organization [facility] Address [address] [address] Care Team Providers Name Role Phone Lurdes Thomas MD Primary Care Provider Reason for Referral Procedure/Equipment (Routine) - Incomplete Specialty Diagnoses / Procedures Referred By Contact Refer red To Contact Diagnoses Dysphagia, oropharyngeal phase Maria Esther Phan MD Procedures FL Video Swallow Study [address] [place], [place] [address] Referral ID Status Reason Start Date Expiration Date Visits V isits Requested Authorized [id number] Incomplete 06/24/2019 09/22/2020 1 1 TOWER CLIMBER Reason for Visit Reason Comments Parkinson's Disease Therapies (Routine) - Closed Specialty Diagnoses / Procedures Referred By Contact Refer red To Contact Diagnoses Dysphagia, unspecified type Parkinson's disease (HRC) Maria Esther Phan MD [address] [place], [place] [address] Referral ID Status Reason Start Date Expiration Date Visits Requ ested Visits Authorized [id number] Closed 06/17/2019 08/16/2019 1 1 Encounter Details Date Type Department Care Team Description 06/24/2019 Office Visit Mesfin Fong, Dysphagia, [facility] WALL TAPER oropharyngeal phase Speech Therapy [address] (Primary Dx) [address] [place], [place] [address] [address] [place] [address] [phone] Social History Tobacco Use Types Packs/Day Years Used Date Smoking Tobacco: Never Smokeless Tobacco: Never Alcohol Use Standard Drinks/Week Comments Yes 0 (1 standard drink = 0.6 oz pure alcoho l) Sex Assigned at Date Recorded Not on file documented as of this encounter Progress Notes Mesfin Morgan SLP - 06/24/2019 3:00 PM CST Pt seen, referred for MBSS TOWER CLIMBER documented in this encounter Plan of Treatment Not on filedocumented as of this encounter Results FL Video Swallow Study (06/24/2019 4:10 PM CELL TOWER CLIMBER) Anatomical Region Laterality Modality Neck, Chest Radio Fluoroscopy Specimen (Source) Anatomical Collection Method Collection Time Re ceived Time Location / / Volume Laterality 06/24/2019 4:10 PM CELL TOWER CLIMBER Narrative 06/24/2019 5:11 PM CELL TOWER CLIMBER EXAM: [place] VIDEO SWALLOW STUDY LOCATION: [facility] DATE/TIME: 06/24/2019 4:10 PM INDICATION: Difficulty [...] original. EXAM: FL VIDEO SWALLOW STUDY LOCATION: [facility] DATE/TIME: 06/24/2019 4:10 PM INDICATION: Difficulty [...] as described above. Maria Esther Phan MD [facility] documented in this encounter Visit Diagnoses Diagnosis Dysphagia, oropharyngeal phase - Primary Dysphagia, oropharyngeal phase documented in this encounter Care Teams Refractory Repairer Relationship Specialty Start Date End Date Lurdes Thomas MD PCP - General 06/18/14 12/11/19 documented as of this encounter
--- OUTSIDE RECORDS SUMMARY | 2022-01-25 10:27 | XMS_ITS | Encounter Summary ---
:1955 Author Organization [employer] Address [address], [place] [address] Care Team Providers Name Role Phone Lurdes Thomas MD Primary Care Provider Reason for Visit Reason Comments QUESTIONS, GENERAL MRI and DBS Encounter Details Date Type Department Care Team Description 10/22/2018 Telephone [facility] Shawnee Hilario, RN QUESTIONS, GENERAL (MRI [address] arriaga and DBS) [place], [place] [address] [facility] [phone] Social History Tobacco Use Types Packs/Day Years [...] back. They have an appointment On at [facility] and he is receiving his care over [...] on filedocumented in this encounter Care Teams Gem Stone Cutter Relationship Specialty Start Date End Date Lurdes Thomas MD PCP - General 06/18/14 12/11/19 documented as of this encounter
--- OUTSIDE RECORDS SUMMARY | 2022-01-25 10:27 | XMS_ITS | Encounter Summary ---
:1955 Author Organization [facility] Address [address] [place] [address] Care Team Providers Name Role Phone Lurdes Thomas MD Primary Care Provider Reason for Visit Reason Comments Prior Authorization Request Encounter Details Date Type Department Care Team Description 09/11/2018 Telephone [facility] Maria Esther Phan [facility] MD Prem Request Neurology 3931 [facility] [address] [place] [address] [place], [place] [phone] Social History Tobacco Use Types Packs/Day Years [...] PA was approved from 08/14/18 to 09/13/19. PA#[id number] Called [employer] and told them PA was approved. They will expedite shipping and get to pt by Monday. Copy of PA approval sent to [facility]. Abi Laughlin - 09/13/2018 4:41 PM CDT Patient's spouse called regarding below message She can be contacted at [phone] - spouse's number or her own number [phone] Abi Laughlin 09/13/2018, 4:42 PM Maria Esther Phan MD - 09/13/2018 3:46 PM CDT Jeannette, I went to the website, will not allow me to start an account as I apparently already have on, I asked for a password reset, and received no e-mail to reset. I called this agency ([facility] -whomever they might be) and [...] 137 mg ER capsules 1. Go to [employer] and click Enter a Ann 2. Enter the pt's Last name, and the Ann Ann: [id number] Pt's Last name: Poly : 1955 3. Complete th form and click: Send to Plan for approval documented in this encounter Plan of Treatment Not on filedocumented as of this encounter Visit Diagnoses Not on filedocumented in this encounter Care Teams Slip Cover Cutter Relationship Specialty Start Date End Date Lurdes Thomas MD PCP - General 06/18/14 12/11/19 documented as of this encounter
--- OUTSIDE RECORDS SUMMARY | 2022-01-25 10:27 | XMS_ITS | Encounter Summary ---
:1955 Author Organization [facility] Address [address] [place] [address] Care Team Providers Name Role Phone Lurdes Thomas MD Primary Care Provider Reason for Visit Reason Onset Date Comments Refill 06/03/2019 Encounter Details Date Type Department Care Team Description 06/03/2019 Refill [facility] Para Maria Esther newberry MD Refill Center Neurology [address] [address] [place] [address] [phone] Social History Tobacco Use Types Packs/Day Years [...] Qty: 90 tabs Last Refill: not given Neurology Technologist/Appt Center: Was the pharmacy entered into the Preferred Pharmacy field? Yes Abi Laughlin 06/03/2019, 1:58 PM NEL TURNER documented in this encounter Plan of Treatment Not on filedocumented as of this encounter Visit Diagnoses Not on filedocumented in this encounter Care Teams Valve Grinder Relationship Specialty Start Date End Date Lurdes Thomas MD PCP - General 06/18/14 12/11/19 documented as of this encounter
--- OUTSIDE RECORDS SUMMARY | 2022-01-25 10:27 | XMS_ITS | Encounter Summary ---
:1955 Author Organization [employer] Address [address] [place] [address] Care Team Providers Name Role Phone Lurdes Thomas MD Primary Care Provider Reason for Visit Reason Comments QUESTIONS, GENERAL MRI with DBS Encounter Details Date Type Department Care Team Description 10/18/2018 Telephone [facility] Shawnee Hilario, RN QUESTIONS, GENERAL (MRI [address] arriaga with DBS) [place], [place] [address] [facility] [phone] Social History Tobacco Use Types Packs/Day Years Used Date Smoking Tobacco: Never Smokeless Tobacco: Never Alcohol Use Standard Drinks/Week Comments Yes 0 (1 standard drink = 0.6 oz pure alcoho l) Sex Assigned at Date Recorded Not on file documented as of this encounter Nursing Notes Shawnee Hilario, RN - 10/18/2018 4:25 PM CDT There was no return phone call to [facility] today about getting system checked. Will send FYI to and then close encounter. Shawnee Hilario RN - 10/18/2018 9:06 AM CDT Patient and significant other calling because patient needs an MRI of his lumbar spine and was supposed to have this morning at [facility]. They wanted to fax us a form to complete verifying his DBS system is MRI eligible. We have not seen patient here for well over a year, he see's Dr. Phan [facility] at [facility] [place]. I offered 3 options to them. They could come here and have the check. They could ask their doctor to order MRI over at [facility] and someone there can check it or they could contact [employer] and see if anyone could go out to [place] to check. She will call us back and let us know what they decide. documented in this encounter Plan of Treatment Not on filedocumented as of this encounter Visit Diagnoses Not on filedocumented in this encounter Care Teams Inspection Engineer Relationship Specialty Start Date End Date Lurdes Thomas MD PCP - General 06/18/14 12/11/19 documented as of this encounter
--- OUTSIDE RECORDS SUMMARY | 2022-01-25 10:27 | XMS_ITS | Encounter Summary ---
:1955 Author Organization [facility] Address [address] [place] [address] Care Team Providers Name Role Phone Lurdes Thomas MD Primary Care Provider Reason for Visit Reason Comments Medication Questions Encounter Details Date Type Department Care Team Description 06/07/2018 Telephone HealthPartMaria Esther Walker Medicat ion Questions [facility] MD Prem Neurology [address] [facility] [address] [place] [address] [place], [place] [phone] (Wo rk) Social History Tobacco Use Types [...] of Dr. Phan' recommendations. Jeannette Porras RN O PRODUCTION ENGINEER Maria Esther Phan MD - 06/08/2018 11:45 AM CST No problem with lansoprazole. O PRODUCTION ENGINEER Yenny Ray - 06/07/2018 4:40 PM CST Pt natasha calling stating that pt was given a new medication by his PCP for acid reflex but they would like to know if Dr. Phan is ok with pt taking this medication. Pt was started on lansoprazole to treat the acid reflex. Please Advise O PRODUCTION ENGINEER documented in this encounter Plan of Treatment Not on filedocumented as of this encounter Visit Diagnoses Not on filedocumented in this encounter Care Teams Supervisor Char House Relationship Specialty Start Date End Date Lurdes Thomas MD PCP - General 06/18/14 12/11/19 documented as of this encounter
--- OUTSIDE RECORDS SUMMARY | 2022-01-25 10:27 | XMS_ITS | Encounter Summary ---
:1955 Author [facility] Address [address] [place] [address] Care Team Providers Name Role Phone Lurdes Thomas MD Primary Care Provider Reason for Referral Therapies (Routine) - Closed Specialty Diagnoses / Procedures Referred By Contact Refer red To Contact Diagnoses Dysphagia, unspecified type Parkinson's disease (HRC) Maria Esther Phan MD [address] [place], [place] [address] Referral ID Status Reason Start Date Expiration Date Visits Requ ested Visits Authorized [id number] Closed 06/17/2019 08/16/2019 1 1 Scheduling Instructions Your provider has recommended an appoint ment with a [facility]rap[facility]. Please stop at the clinic check out desk for as sistance with scheduling or if you prefer to call for your appointment you may call [facility] at [phone]. We suggest you call your [facility] insurance company about your coverage and benefits for this appointment. RAPHIC AREA INTELLIGENCE OFFICER Reason for Visit Reason Comments REPORTING, NEW SYMPTOMS Encounter Details Date Type Department Care Team Description 06/17/2019 [facility] Prem SYMPTOMS Neurology [address] [address] [place], [place] [phone] (Wo rk) Social History Tobacco Use Types [...] no call back needed at this time. RAPHIC AREA INTELLIGENCE OFFICER Matt Cates RN - 06/17/2019 10:13 AM CST Nurse called Natasha and relayed message from Dr. Phan to her. She stated understanding and had no further questions at this time. She was in agreement with plan. Matt Cates RN 06/17/2019, 10:15 AM RAPHIC AREA INTELLIGENCE OFFICER Maria Esther Phan MD - 06/17/2019 10:05 AM CST They should have his PCP check him and possily do a CXR if indicated. The we can have him see speechtherapy for swallow evaluation - order entered. RAPHIC AREA INTELLIGENCE OFFICER Maximo Julio - 06/17/2019 8:16 AM CST Patients Natasha, calling to request call back regarding symptoms she is concerned about. She states the patient has been coughing for the past week and she thought it was due to a cold however, now she thinks it is from aspiration from Parkinson's. Please call her back when available, Thank you. RAPHIC AREA INTELLIGENCE OFFICER documented in this encounter Plan of Treatment Scheduled Referrals Name Type Priority Associated Diagnoses Order S chedule Speech Therapy Referral Routine Dysphagia, unspe cified type Ordered: 06/17/2019 Parkinson's disease (HRC) documented as of this encounter Visit Diagnoses Diagnosis Dysphagia, unspecified type - Primary Parkinson's disease (HRC) documented in this encounter Care Teams Global Professional Relationship Specialty Start Date End Date Lurdes Thomas MD PCP - General 06/18/14 12/11/19 documented as of this encounter
--- OUTSIDE RECORDS SUMMARY | 2022-01-25 10:27 | XMS_ITS | Encounter Summary ---
:1955 Author Organization [facility] Address [address] [place] [address] Care Team Providers Name Role Phone Lurdes Thomas MD Primary Care Provider Encounter Details Date Type Department Care Team Description 05/09/2018 Telephone [employer] Neuroscience Princess Phan, [place] [facility] [address] [place] [address] [place], [place] [address] (Wo rk) Social History Tobacco Use Types [...] script stating-- need to clarify medication Rytary 23.30-868 caps. Please advise. Nadia Persaud 05/09/2018, 9:20 AM CAL SECRETARY RECEPTIONIST documented in this encounter Plan of Treatment Not on filedocumented as of this encounter Visit Diagnoses Not on filedocumented in this encounter Care Teams Senior Gis Analyst Relationship Specialty Start Date End Date Lurdes Thomas MD PCP - General 06/18/14 12/11/19 documented as of this encounter
--- OUTSIDE RECORDS SUMMARY | 2022-01-25 10:28 | XMS_ITS | Encounter Summary ---
:1955 Author Organization [facility] Address [address] [address] Care Team Providers Name Role Phone Lurdes Thomas MD Primary Care Provider Reason for Visit Reason Comments Spine Lumbar Encounter Details Date Type Department Care Team Description 06/30/2015 Office Visit [place] [facility] Chris Cain, Right -sided low back Therapy Aurora Briggs, PT pain with right-sided [address] granados (Primary Dx) [place] [address] [place], [place] [phone] (Wo rk) Social History Tobacco Use Types Packs/Day Years Used Date Smoking Tobacco: Never Smokeless Tobacco: Never Alcohol Use Standard Drinks/Week Comments Yes 0 (1 standard drink = 0.6 oz pure alcoho l) Sex Assigned at Date Recorded Not on file documented as of this encounter Progress Notes Aurora Hcikey, PT - 06/30/2015 11:02 AM CST Encounter date: 06/30/2015 Pt : 1955 Jasmine [facility] Physical Therapy Progress Note Visit Number: 11 Initial Certification Period: 05/19/2015 to 08/17/15 Referring Provider: Dr. Maria Esther Phan Visit Diagnosis/ICD: Diagnosis ICD-10-CM ICD-9-CM 1. Right-sided low back pain with right-sided sciatica M54.41 724.3 Precautions: none Onset/Referral Date: 05/19/2015 Orders: Evaluate and treat. [facility] Services: Programming RN, Social Work, [...] above OBJ info and- therapeutic ex (CPT 11311)20 min reviewed flexion in step standing, left, [...] PA pressure on spinal segments ultrasound (CPT 35218) 12 min US to right LB for 10 min, 1.3 w/cm2, continuous manual therapy (CPT 13045) 15 min joint mobilization to lumbar spine gr 3 soft tissue mobilization, and use of patient relations coordinator tool to T and lumbar paraspinals Afterwards [...] has not contacted his insurance company yet NCIAL ADMINISTRATION OFFICER documented in this encounter Plan of Treatment Not on filedocumented as of this encounter Visit Diagnoses Diagnosis Right-sided low back pain with right-beck ed sciatica (HRC) - Primary documented in this encounter Care Teams Financial Developer Relationship Specialty Start Date End Date Lurdes Thomas MD PCP - General 06/18/14 12/11/19 documented as of this encounter
--- OUTSIDE RECORDS SUMMARY | 2022-01-25 10:28 | XMS_ITS | Encounter Summary ---
:1955 Author Organization [facility] Address [address] [place] [address] Care Team Providers Name Role Phone Lurdes Thomas MD Primary Care Provider Reason for Visit Reason Comments QUESTIONS, GENERAL Encounter Details Date Type Department Care Team Description 07/06/2017 Telephone [place] [facility] Shawnee Hilario, RN QUESTIONS, GENERAL [address] [place] [address] Social History Tobacco Use [...] seen next and get his battery checked. METER REPAIRER documented in this encounter Plan of Treatment Not on filedocumented as of this encounter Visit Diagnoses Not on filedocumented in this encounter Care Teams Field Assessor Relationship Specialty Start Date End Date Lurdes Thomas MD PCP - General 06/18/14 12/11/19 documented as of this encounter
--- OUTSIDE RECORDS SUMMARY | 2022-01-25 10:28 | XMS_ITS | Encounter Summary ---
:1955 Author Organization [employer] Address [address], [place] [address] Care Team Providers Name Role Phone Lurdes Thomas MD Primary Care Provider Reason for Referral Specialty Diagnoses / Procedures Referred By Contact Refer red To Contact Maria Esther Phan MD [address] [place], [place] [address] Referral ID Status Reason Start Date Expiration Date Visits Requ ested Visits Authorized L CLEANER Reason for Visit Reason Comments Back Pain Encounter Details Date Type Department Care Team Description 05/19/2015 Initial Consult [place] [facility] Jordana Ham ht-sided low back Therapy M, PT pain with right-sided [address] [id number] Social History Tobacco Use Types Packs/Day Years [...] 1955 Physical Therapy Parkinson Evaluation/Plan of Care [facility] Initial Certification Period: 05/19/2015 to 08/17/15 Referring Provider: Dr. Maria Esther Phan Visit Diagnosis/ICD: Diagnosis ICD-10-CM ICD-9-CM 1. Right-sided low back pain with right-sided sciatica M54.41 724.3 Precautions: none Onset/Referral Date: 05/19/2015 Reason for Referral: -Outpatient PT. Orders: Evaluate and treat. [facility] Services: Programming RN, Social Work, therapy in [...] to residence: Stairs to enter. -Living location: [facility]. 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 Cooperative. Pleasant. [...] discussed therapist's recommendation to follow up at [facility] with orthopedic PT, provided pt with information regarding how to schedule follow up visit at their clinic, contacted [facility] to update them with transfer of [...] clinic closer to home for treatment with boarding specialist. Pt to continue at [place] location. Pt would benefit from skilled PT [...] Therapeutic exercise. Ultrasound. Interdisciplinary Referrals: PT at [facility], continue with POC Services Recommended: nothing [...] 90 day(s). Total Treatment: 45 minutes The aircraft life support fitter is completed by the therapist and the referring clinician's electronic signature certifies medical necessity for the plan above. Completed by Jordana Ham PT License #: [id number] L CLEANER documented in this encounter Plan of Treatment Scheduled Referrals Name Type Priority Associated Diagnoses Order [facility] Referral Routine Right-sided low back edmond n Ordered: 05/19/2015, with right-sided sciatica Ex keagan: 05/19/2015 documented as of this encounter Visit Diagnoses Diagnosis Right-sided low back pain with right-beck ed sciatica (HRC) documented in this encounter Care Teams Mental Health Case Manager Relationship Specialty Start Date End Date Lurdes Thomas MD PCP - General 06/18/14 12/11/19 documented as of this encounter
--- OUTSIDE RECORDS SUMMARY | 2022-01-25 10:28 | XMS_ITS | Encounter Summary ---
:[address] [facility] Address [address] [address] Care Team Providers Name Role Phone Lurdes Thomas MD Primary Care Provider Reason for Visit Reason Comments Spine Lumbar Encounter Details Date Type Department Care Team Description 06/04/2015 Office Visit [place] [facility] Chris Cain, Right -sided low back Therapy Aurora Briggs, PT pain with right-sided [address] granados (Primary Dx) [place] [address] [place], [place] [phone] (Wo rk) Social History Tobacco Use Types Packs/Day Years Used Date Smoking Tobacco: Never Smokeless Tobacco: Never Alcohol Use Standard Drinks/Week Comments Yes 0 (1 standard drink = 0.6 oz pure alcoho l) Sex Assigned at Date Recorded Not on file documented as of this encounter Progress Notes Aurora Hickey, PT - 06/23/2015 2:07 PM CST Encounter date: 06/04/2015 Pt : 1955 Jasmine [facility] Physical Therapy Progress Note Visit Number: 5 Initial Certification Period: 05/19/2015 to 08/17/15 Referring Provider: Dr. Maria Esther Phan Visit Diagnosis/ICD: Diagnosis ICD-10-CM ICD-9-CM 1. Right-sided low back pain with right-sided sciatica M54.41 724.3 Precautions: none Onset/Referral Date: 05/19/2015 Orders: Evaluate and treat. [facility] Services: Programming RN, Social Work, [...] above OBJ info and- manual therapy (CPT 65746) 10 min joint mobilization, supine end range thrust technique, right and left, repeated twice therapeutic ex (CPT 76464)25 min added hip series of stretches to combine some of the exercises he has been doing ultrasound (CPT 26377) 10 min US to right LB for [...] manual therapy, exercise progression, modalities if needed. CY ADVISER documented in this encounter Plan of Treatment Not on filedocumented as of this encounter Visit Diagnoses Diagnosis Right-sided low back pain with right-beck ed sciatica (HRC) - Primary documented in this encounter Care Teams Health Information Assistant Relationship Specialty Start Date End Date Lurdes Thomas MD PCP - General 06/18/14 12/11/19 documented as of this encounter
--- OUTSIDE RECORDS SUMMARY | 2022-01-25 10:28 | XMS_ITS | Encounter Summary ---
:1955 Author Organization [facility] Address [address], [place] [address] Care Team Providers Name Role Phone Lurdes Thomas MD Primary Care Provider Reason for Referral Consult/Transfer Care (Routine) - Closed Specialty Diagnoses / Procedures Referred By Contact Refer red To Contact Diagnoses Parkinson's disease (HRC) Maria Esther Phan MD [address] [place], [place] [address] Referral ID Status Reason Start Date Expiration Date Visits Requ ested Visits Authorized [id number] Closed 08/08/2017 11/07/2018 1 1 Scheduling Instructions Your provider has recommended an appoint ment with [facility]. You may call [phone] or marino bardales [phone] to schedule your appointment. If you do [...] [facility] Maria Esther Phan Parkinson's disease [address]aro MD ([facility]) (Primary Dx) Drive [address] 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 documented in this encounter Progress Notes Maria Esther Phan MD - 08/08/2017 12:00 PM CDT NAME: DEIDRE PANG MR#: [id number] CSN: [id number] AUTHENTICATING CLINICIAN: Maria Esther Phan MD CONFIRM #: [id number] LOC: 27378 CLINIC PROGRESS NOTE DATE OF VISIT: 08/08/2017 : 1955 LOCATION: [place]. HISTORY OF PRESENT ILLNESS: Mr. Pang is [...] lower extremities distally.Coordination: No tremor seen today. Vdhtbd-yimu-vsztud is adequate. There is uhcb-my-fapjonnc dyskinesia, more so on the left than [...] sooner if necessary. SAP:MEDQ C: CONFIRM #: [id number] documented in this encounter Plan of Treatment Scheduled Referrals Name Type Priority Associated Diagnoses Order S chedule DBS PROGRAMMING CONSULT Referral Routine Parkinson's disea se Ordered: 08/08/2017 (AMB) (HR) documented as of this encounter Visit Diagnoses Diagnosis Parkinson's disease (HRC) - Primary documented in this encounter Care Teams Elementary School Teacher Relationship Specialty Start Date End Date Lurdes Thomas MD PCP - General 06/18/14 12/11/19 documented as of this encounter
--- OUTSIDE RECORDS SUMMARY | 2022-01-25 10:28 | XMS_ITS | Encounter Summary ---
:1955 Author Organization [employer] [facility] Address [address] [address] Care Team Providers Name Role Phone Lurdes Thomas MD Primary Care Provider Reason for Visit Reason Comments Spine Lumbar Encounter Details Date Type Department Care Team Description 07/09/2015 Office Visit [place] [facility] Chris Cain, Right -sided low back Therapy Aurora Briggs, PT pain with right-sided [address] granados (Primary Dx) [place] [address] [place], [place] [phone] (Wo rk) Social History Tobacco Use Types Packs/Day Years Used Date Smoking Tobacco: Never Smokeless Tobacco: Never Alcohol Use Standard Drinks/Week Comments Yes 0 (1 standard drink = 0.6 oz pure alcoho l) Sex Assigned at Date Recorded Not on file documented as of this encounter Progress Notes Aurora Hickey, PT - 07/09/2015 8:51 AM CST Encounter date: 07/09/2015 Pt : 1955 Jasmine [facility] Physical Therapy Progress Note Visit Number: 13 Initial Certification Period: 05/19/2015 to 08/17/15 Referring Provider: Dr. Maria Esther Phan Visit Diagnosis/ICD: Diagnosis ICD-10-CM ICD-9-CM 1. Right-sided low back pain with right-sided sciatica M54.41 724.3 Precautions: none Onset/Referral Date: 05/19/2015 Orders: Evaluate and treat. [facility] Services: Programming RN, Social Work, [...] above OBJ info and- therapeutic ex (CPT 50920)15 min reviewed /discussed HEP, home management, body mechanics with lifting, turning, pivoting ultrasound (CPT 51867) 12 min US to right LB for 10 min, 1.3 w/cm2, continuous manual therapy (CPT 43558) 18 min joint mobilization to lumbar spine [...] then he sees his MD for recheck R WATCHSTANDER documented in this encounter Plan of Treatment Not on filedocumented as of this encounter Visit Diagnoses Diagnosis Right-sided low back pain with right-beck ed sciatica (HRC) - Primary documented in this encounter Care Teams Bartacker Relationship Specialty Start Date End Date Lurdes Thomas MD PCP - General 06/18/14 12/11/19 documented as of this encounter
--- OUTSIDE RECORDS SUMMARY | 2022-01-25 10:28 | XMS_ITS | Encounter Summary ---
:1955 Author Organization [facility] Address [address] [place] [address] Care Team Providers Name Role Phone Lurdes Thomas MD Primary Care Provider Reason for Referral Specialty Diagnoses / Procedures Referred By Contact Refer red To Contact Maria Esther Phan MD [address] [place], [place] [address] Referral ID Status Reason Start Date Expiration Date Visits Requ ested Visits Authorized TOOTH GRINDING MACHINE OPERATOR Reason for Visit Reason Comments Device Check Encounter Details Date Type Department Care Team Description 05/19/2015 Nursing Visit [place] [facility] Shawnee Hilario, PD (Parkinson's [address] RN disease) [place] [address] Social History Tobacco Use Types [...] implantation. Surgeon:Dr. Gonzalez [facility] date/location: 09/09/24 [place] Battery replacement: None Device type: Activa PC [...] point I readjusted his range on patient senior analyst programmer. Patient senior analyst programmer range Left 2.4-2.8 Right 2.3-2.7 Total face to face programming time: 50 minutes Follow up: 6 months Supervising provider: Dr. Maria Esther Hilario, RN TOOTH GRINDING MACHINE OPERATOR documented in this encounter Plan of Treatment Scheduled Referrals Name Type Priority Associated Diagnoses Order S chedule DBS PROGRAMMING CONSULT Referral Routine PD (Parkinson's O rdered: 05/19/2015, (AMB) disease) ([facility]) Expires: 04/22 documented as of this encounter Visit Diagnoses Diagnosis PD (Parkinson's disease) ([facility]) Paralysis agitans documented in this encounter Care Teams Application Support Relationship Specialty Start Date End Date Lurdes Thomas MD PCP - General 06/18/14 12/11/19 documented as of this encounter
--- OUTSIDE RECORDS SUMMARY | 2022-01-25 10:28 | XMS_ITS | Encounter Summary ---
:1955 Author Organization [facility] Address [address] [address] Care Team Providers Name Role Phone Lurdes Thomas MD Primary Care Provider Reason for Visit Reason Comments Spine Lumbar Encounter Details Date Type Department Care Team Description 06/18/2015 Office Visit [place] [facility] Chris Cain, Right -sided low back Therapy Aurora Briggs, PT pain with right-sided [address] granados (Primary Dx) [place] [address] [place], [place] [phone] (Wo rk) Social History Tobacco Use Types Packs/Day Years Used Date Smoking Tobacco: Never Smokeless Tobacco: Never Alcohol Use Standard Drinks/Week Comments Yes 0 (1 standard drink = 0.6 oz pure alcoho l) Sex Assigned at Date Recorded Not on file documented as of this encounter Progress Notes Aurora Hickey, PT - 06/23/2015 2:02 PM CST Encounter date: 06/18/2015 Pt : 1955 [facility]asmine [facility] [...] above OBJ info and- therapeutic ex (CPT 11867)20 min side glides left reviewed flexion in step standing, left, than right. He still gets a little glitch on right side single leg raise in hands/knees position, 5 sec hold - in 1/2 sitting, hip hiking right for QL. He reports feeling an excellent stretch with this, no pain. ultrasound (CPT 03484) 11 min US to right LB for 10 min, 1.3 w/cm2, continuous manual therapy (CPT 87434) 12 min soft tissue mobilization, and use of automatic wheel line operator tool to T and lumbar paraspinals Timed [...] therapy beyondinitial 6 that are set up RVISOR CUTTING DEPARTMENT documented in this encounter Plan of Treatment Not on filedocumented as of this encounter Visit Diagnoses Diagnosis Right-sided low back pain with right-beck ed sciatica (HRC) - Primary documented in this encounter Care Teams Sausage Mixer Relationship Specialty Start Date End Date Lurdes Thomas MD PCP - General 06/18/14 12/11/19 documented as of this encounter
--- OUTSIDE RECORDS SUMMARY | 2022-01-25 10:28 | XMS_ITS | Encounter Summary ---
:1955 Author Organization [facility] Address [address] [address] Care Team Providers Name Role Phone Lurdes Thomas MD Primary Care Provider Reason for Visit Reason Comments Spine Lumbar Encounter Details Date Type Department Care Team Description 06/08/2015 Office Visit [place] [facility] Chris Cain, Right -sided low back Therapy Aurora Briggs, PT pain with right-sided [address] granados (Primary Dx) [place] [address] [place], [place] [phone] (Wo rk) Social History Tobacco Use Types Packs/Day Years Used Date Smoking Tobacco: Never Smokeless Tobacco: Never Alcohol Use Standard Drinks/Week Comments Yes 0 (1 standard drink = 0.6 oz pure alcoho l) Sex Assigned at Date Recorded Not on file documented as of this encounter Progress Notes Aurora Hickey, PT - 06/23/2015 2:05 PM CST Encounter date: 06/08/2015 Pt : 1955 [facility] Note Visit Number: 6) Initial Certification Period: 05/19/2015 to 08/17/15 Referring Provider: Dr. Maria Esther Phan Visit Diagnosis/ICD: Diagnosis ICD-10-CM ICD-9-CM 1. Right-sided low back pain with right-sided sciatica M54.41 724.3 Precautions: none Onset/Referral Date: 05/19/2015 Orders: Evaluate and treat. [facility] Services: Programming RN, Social Work, [...] above OBJ info and- manual therapy (CPT 42937) 10 min joint mobilization, supine end range thrust technique, right and left, repeated twice therapeutic ex (CPT 23978)25 min hip series of stretches to combine some of the exercises he has been doing added flexion in step standing, left, than right side glide left added single leg raise in hands/knees position, 5 sec hold ultrasound (CPT 55731) 12 min US to right LB for [...] manual therapy, exercise progression, modalities if needed. 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
--- OUTSIDE RECORDS SUMMARY | 2022-01-25 10:28 | XMS_ITS | Encounter Summary ---
:1955 Author Organization [facility] Address [address], [place] [address] Care Team Providers Name Role Phone Lurdes Thomas MD Primary Care Provider Reason for Visit Reason Comments Spine Lumbar Encounter Details Date Type Department Care Team Description 07/02/2015 Office Visit [place] [facility] Chris Cain, Right -sided low back Therapy Aurora Briggs, PT pain with right-sided [address] granados (Primary Dx) [place] [address] [place], [place] [phone] (Wo rk) Social History Tobacco Use Types Packs/Day Years Used Date Smoking Tobacco: Never Smokeless Tobacco: Never Alcohol Use Standard Drinks/Week Comments Yes 0 (1 standard drink = 0.6 oz pure alcoho l) Sex Assigned at Date Recorded Not on file documented as of this encounter Progress Notes Aurora Hickey, PT - 07/02/2015 11:56 AM CST Encounter date: 07/02/2015 Pt : 1955 Jasmine [facility] Physical Therapy Progress Note Visit Number: 12 Initial Certification Period: 05/19/2015 to 08/17/15 Referring Provider: Dr. Maria Esther Phan Visit Diagnosis/ICD: Diagnosis ICD-10-CM ICD-9-CM 1. Right-sided low back pain with right-sided sciatica M54.41 724.3 Precautions: none Onset/Referral Date: 05/19/2015 Orders: Evaluate and treat. [facility] Services: Programming RN, Social Work, [...] above OBJ info and- therapeutic ex (CPT 28013)20 min reviewed and practiced H/K's position cat camel and hand knee rock,and opp arm/leg raise ultrasound (CPT 26074) 10 min US to right LB for 10 min, 1.3 w/cm2, continuous manual therapy (CPT 92524) 15 min joint mobilization to lumbar spine gr 3 soft tissue mobilization, and use of corporate development manager tool to T and lumbar paraspinals Afterwards [...] his neurologist for his brain stimulator recheck ITAL STAFF PHARMACIST documented in this encounter Plan of Treatment Not on filedocumented as of this encounter Visit Diagnoses Diagnosis Right-sided low back pain with right-beck ed sciatica (HRC) - Primary documented in this encounter Care Teams Drafter Cartographic Relationship Specialty Start Date End Date Lurdes Thomas MD PCP - General 06/18/14 12/11/19 documented as of this encounter
--- OUTSIDE RECORDS SUMMARY | 2022-01-25 10:28 | XMS_ITS | Encounter Summary ---
:1955 Author Organization [facility] Address [address], [place] [address] Care Team Providers Name Role Phone Lurdes Thomas MD Primary Care Provider Encounter Details Date Type Department Care Team Description 05/05/2016 Notes/Orders Center [facility], [address] corina MUHAMMAD [place], [place] [address] [address] [phone] [place] [address] (Wo rk) Social History Tobacco [...] treatmentorder should be obtained from the physician. IX WORKER documented in this encounter Plan of Treatment Not on filedocumented as of this encounter Visit Diagnoses Not on filedocumented in this encounter Care Teams Cardiopulmonary Supervisor Relationship Specialty Start Date End Date Lurdes Thomas MD PCP - General 06/18/14 12/11/19 documented as of this encounter
--- OUTSIDE RECORDS SUMMARY | 2022-01-25 10:28 | XMS_ITS | Encounter Summary ---
:1955 Author Organization [facility] Address [address], [place] [address] Care Team Providers Name Role Phone Lurdes Thomas MD Primary Care Provider Reason for Visit Reason Comments Spine Lumbar Encounter Details Date Type Department Care Team Description 05/26/2015 Office Visit [facility] Chris Cain, Right -sided low back Therapy Aurora Briggs, PT pain with right-sided [address] granados (Primary Dx) [place] [address] [place], [place] [phone] (Wo rk) Social History Tobacco Use Types Packs/Day Years Used Date Smoking Tobacco: Never Smokeless Tobacco: Never Alcohol Use Standard Drinks/Week Comments Yes 0 (1 standard drink = 0.6 oz pure alcoho l) Sex Assigned at Date Recorded Not on file documented as of this encounter Progress Notes Aurora Hickey, PT - 05/26/2015 10:30 AM CST Encounter date: 05/26/2015 Pt : 1955 [facility] Physical Therapy Progress Note Visit Number: 2 Initial Certification Period: 05/19/2015 to 08/17/15 Referring Provider: Dr. Maria Esther Phan Visit Diagnosis/ICD: Diagnosis ICD-10-CM ICD-9-CM 1. Right-sided low back pain with right-sided sciatica M54.41 724.3 Precautions: none Onset/Referral Date: 05/19/2015 Reason for Referral: -Outpatient PT. Orders: Evaluate and treat. [facility] Services: Programming RN, Social Work, therapy in the past Exacerbation Date: 04/21/2015 Last Referring MD Visit: 05/19/2015 SUBJECTIVE: Andrew is new to me today, initially assessed at [facility], and referred to [facility] location for convenience, and orthopedic care [...] with REIL Treatment/Education Today: therapeutic ex (CPT 98612)15 min time spent with orthopedic assessment manual therapy (CPT 32969) 15 min in prone, general mobilization. afterwards, (-) prone knee flexion test, but pain with transitional movements In supine, end range rotational thrust to the right, repeated twice, and to the left, with cavitation. Afterwards, no pain with supine to sit, and sit to stand. still is shifted, but no pain therapeutic ex (CPT 31504) 15 min Added for HEP: supine DKTC, [...] can see what will work for him [facility] documented in this encounter Plan of Treatment Not on filedocumented as of this encounter Visit Diagnoses Diagnosis Right-sided low back pain with right-beck ed sciatica (HRC) - Primary documented in this encounter Care Teams Iron Installer Relationship Specialty Start Date End Date Lurdes Thomas MD PCP - General 06/18/14 12/11/19 documented as of this encounter
--- OUTSIDE RECORDS SUMMARY | 2022-01-25 10:28 | XMS_ITS | Encounter Summary ---
:1955 Author Organization [facility] Address [address] [address] Care Team Providers Name Role Phone Lurdes Thomas MD Primary Care Provider Reason for Visit Reason Comments Spine Lumbar Encounter Details Date Type Department Care Team Description 06/02/2015 Office Visit [place] [facility] Chris Cain, Right -sided low back Therapy Aurora Briggs, PT pain with right-sided [address] granados (Primary Dx) [place] [address] [place], [place] [phone] (Wo rk) Social History Tobacco Use Types Packs/Day Years Used Date Smoking Tobacco: Never Smokeless Tobacco: Never Alcohol Use Standard Drinks/Week Comments Yes 0 (1 standard drink = 0.6 oz pure alcoho l) Sex Assigned at Date Recorded Not on file documented as of this encounter Progress Notes Aurora Hickey, PT - 06/02/2015 10:07 AM CST Encounter date: 06/02/2015 Pt : 1955 [facility] Physical Therapy Progress Note Visit Number: 3 Initial Certification Period: 05/19/2015 to 08/17/15 Referring Provider: Dr. Maria Esther Phan Visit Diagnosis/ICD: Diagnosis ICD-10-CM ICD-9-CM 1. Right-sided low back pain with right-sided sciatica M54.41 724.3 Precautions: none Onset/Referral Date: 05/19/2015 Reason for Referral: -Outpatient PT. Orders: Evaluate and treat. [facility] Services: Programming RN, Social Work, [...] with REIL Treatment/Education Today: therapeutic ex (CPT 00513)5 min time spent with orthopedic assessment ultrasound (CPT 58788) 12 min US to right LB for 10 min, 1.3 w/cm2, continous therapeutic ex (CPT 37636) 30 min Reviewed and practiced his HEP: [...] manual therapy, exercise progression, modalities if needed. SAWYER documented in this encounter Plan of Treatment Not on filedocumented as of this encounter Visit Diagnoses Diagnosis Right-sided low back pain with right-beck ed sciatica (HRC) - Primary documented in this encounter Care Teams Automatic Head Sawyer Relationship Specialty Start Date End Date Lurdes Thomas MD PCP - General 06/18/14 12/11/19 documented as of this encounter
--- OUTSIDE RECORDS SUMMARY | 2022-01-25 10:28 | XMS_ITS | Encounter Summary ---
:1955 Author Organization [facility] Address [address], [place] [address] Care Team Providers Name Role Phone Lurdes Thomas MD Primary Care Provider Reason for Visit Reason Comments Spine Lumbar Encounter Details Date Type Department Care Team Description 07/16/2015 Office Visit [place] [facility] Chris Cain, Right -sided low back Therapy Aurora Briggs, PT pain with right-sided [address] granados (Primary Dx) [place] [address] [place], [place] [phone] (Wo rk) Social History Tobacco Use Types Packs/Day Years Used Date Smoking Tobacco: Never Smokeless Tobacco: Never Alcohol Use Standard Drinks/Week Comments Yes 0 (1 standard drink = 0.6 oz pure alcoho l) Sex Assigned at Date Recorded Not on file documented as of this encounter Progress Notes Aurora Hickey, PT - 07/19/2015 1:13 PM CST Encounter date: 07/16/2015 Pt : 1955 [facility] Physical Therapy Progress Note/Discharge Summary Visit Number: 14 Initial Certification Period: 05/19/2015 to 08/17/15 Referring Provider: Dr. Maria Esther Phan Visit Diagnosis/ICD: Diagnosis ICD-10-CM ICD-9-CM 1. Right-sided low back pain with right-sided sciatica M54.41 724.3 Precautions: none Onset/Referral Date: 05/19/2015 Orders: Evaluate and treat. [facility] Services: Programming RN, Social Work, [...] above OBJ info and- therapeutic ex (CPT 88321)15 min reviewed /discussed HEP, home management, body mechanics with lifting, turning, pivoting ultrasound (CPT 89026) 12 min US to right LB for 10 min, 1.3 w/cm2, continuous manual therapy (CPT 82496) 18 min joint mobilization to lumbar spine [...] 75- 85% improvement Plan: will [facility] to [facility] at this time, encouraged Andrew to call if any questions, or return if needed Encounter Date: 07/16/2015 Pt : 1955 [facility] Physical Therapy Discharge Summary Patient was seen [...] to return to therapy if symptoms recur. RESSIVE CARE NURSE documented in this encounter Plan of Treatment Not on filedocumented as of this encounter Visit Diagnoses Diagnosis Right-sided low back pain with right-beck ed sciatica (HRC) - Primary documented in this encounter Care Teams District Representative Relationship Specialty Start Date End Date Lurdes Thomas MD PCP - General 06/18/14 12/11/19 documented as of this encounter
--- OUTSIDE RECORDS SUMMARY | 2022-01-25 10:28 | XMS_ITS | Encounter Summary ---
:1955 Author Organization [employer] Address [address] [address] Care Team Providers Name Role Phone Lurdes Thomas MD Primary Care Provider Encounter Details Date Type Department Care Team Description 05/06/2016 Notes/Orders [place] [facility] P, OTR/L [address] [place], [place] [address] [facility] [phone] [place] [address] (Wo rk) Social History Tobacco [...] physician. RODRIGUE Gandhi/Stefan 05/06/2016, 9:56 AM ' YSIS MGR documented in this encounter Plan of Treatment Not on filedocumented as of this encounter Visit Diagnoses Not on filedocumented in this encounter Care Teams Casting Room Operator Relationship Specialty Start Date End Date Lurdes Thomas MD PCP - General 06/18/14 12/11/19 documented as of this encounter
--- OUTSIDE RECORDS SUMMARY | 2022-01-25 10:28 | XMS_ITS | Encounter Summary ---
:1955 Author Organization [employer] Address [address] [place] [address] Care Team Providers Name Role Phone Lurdes Thomas MD Primary Care Provider Reason for Visit Reason Comments Research Encounter Details Date Type Department Care Team Description 05/21/2015 Telephone [facility] Maria Esther Phan MD Research [address] [place], [place] [address] [place] [address] (Wo rk) Social History Tobacco [...] [facility]. [facility] would like to pursue the study and understands that enrollment may close before he hasbeen stable for 60 days on a different anti-depressant. Zoloft is an acceptable medication. Pharmacyhas been updated. Please write specific instructions on this switch. 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
--- OUTSIDE RECORDS SUMMARY | 2022-01-25 10:28 | XMS_ITS | Encounter Summary ---
:1955 Author Organization [facility] Address [address], [place] [address] Care Team Providers Name Role Phone Lurdes Thomas MD Primary Care Provider Reason for Visit Reason Comments Spine Lumbar Encounter Details Date Type Department Care Team Description 06/23/2015 Office Visit [facility] Chris Cain, Right -sided low back Therapy Aurora Briggs, PT pain with right-sided [address] granados (Primary Dx) [place] [address] [place], [place] [phone] (Wo rk) Social History Tobacco Use Types Packs/Day Years Used Date Smoking Tobacco: Never Smokeless Tobacco: Never Alcohol Use Standard Drinks/Week Comments Yes 0 (1 standard drink = 0.6 oz pure alcoho l) Sex Assigned at Date Recorded Not on file documented as of this encounter Progress Notes Aurora Hickey, PT - 06/23/2015 2:00 PM CST Encounter date: 06/23/2015 Pt : 1955 [facility] Physical Therapy Progress Note Visit Number: 10 Initial Certification Period: 05/19/2015 to 08/17/15 Referring Provider: Dr. Maria Esther Phan Visit Diagnosis/ICD: Diagnosis ICD-10-CM ICD-9-CM 1. Right-sided low back pain with right-sided sciatica M54.41 724.3 Precautions: none Onset/Referral Date: 05/19/2015 Orders: Evaluate and treat. [facility] Services: Programming RN, Social Work, [...] above OBJ info and- therapeutic ex (CPT 05210)10 min reviewed flexion in step standing, left, than right. He still gets a little glitch on right side - in 1/2 sitting, hip hiking right for QL. He reports feeling an excellent stretch with this, no pain. ultrasound (CPT 17569) 12 min US to right LB for 10 min, 1.3 w/cm2, continuous manual therapy (CPT 36117) 15 min soft tissue mobilization, and use of welding equipment repairer tool to T and lumbar paraspinals Timed [...] has not contacted his insurance company yet TY TRAINER documented in this encounter Plan of Treatment Not on filedocumented as of this encounter Visit Diagnoses Diagnosis Right-sided low back pain with right-beck ed sciatica (HRC) - Primary documented in this encounter Care Teams Director Of Student Life Relationship Specialty Start Date End Date Lurdes Thomas MD PCP - General 06/18/14 12/11/19 documented as of this encounter
--- OUTSIDE RECORDS SUMMARY | 2022-01-25 10:28 | XMS_ITS | Encounter Summary ---
:1955 Author Organization [facility] Address [address], [place] [address] Care Team Providers Name Role Phone Lurdes Thomas MD Primary Care Provider Reason for Visit Reason Comments Spine Lumbar Encounter Details Date Type Department Care Team Description 06/16/2015 Office Visit [place] [facility] Chris Cain, Right -sided low back Therapy Aurora Briggs, PT pain with right-sided [address] granados (Primary Dx) [place] [address] [place], [place] [phone] (Wo rk) Social History Tobacco Use Types Packs/Day Years Used Date Smoking Tobacco: Never Smokeless Tobacco: Never Alcohol Use Standard Drinks/Week Comments Yes 0 (1 standard drink = 0.6 oz pure alcoho l) Sex Assigned at Date Recorded Not on file documented as of this encounter Progress Notes Aurora Hickey, PT - 06/23/2015 2:03 PM CST Encounter date: 06/16/2015 Pt : 1955 [facility] Physical Therapy Progress Note Visit Number: 8 Initial Certification Period: 05/19/2015 to 08/17/15 Referring Provider: Dr. Maria Esther Phan Visit Diagnosis/ICD: Diagnosis ICD-10-CM ICD-9-CM 1. Right-sided low back pain with right-sided sciatica M54.41 724.3 Precautions: none Onset/Referral Date: 05/19/2015 Orders: Evaluate and treat. [facility] Services: Programming RN, Social Work, [...] above OBJ info and- therapeutic ex (CPT 85498)20 min Discussed hip series of stretches to [...] stretch with this, no pain. ultrasound (CPT 21588) 11 min US to right LB for 10 min, 1.3 w/cm2, continuous manual therapy (CPT 23603) 12 min soft tissue mobilization, and use of iron setter tool to T and lumbar parsspinals Timed [...] therapy beyondinitial 6 that are set up CUTTING MACHINE OPERATOR VERTICAL documented in this encounter Plan of Treatment Not on filedocumented as of this encounter Visit Diagnoses Diagnosis Right-sided low back pain with right-beck ed sciatica (HRC) - Primary documented in this encounter Care Teams Daycare Provider Relationship Specialty Start Date End Date Lurdes Thomas MD PCP - General 06/18/14 12/11/19 documented as of this encounter
--- OUTSIDE RECORDS SUMMARY | 2022-01-25 10:28 | XMS_ITS | Encounter Summary ---
:1955 Author Organization [facility] Address [address], [place] [address] Care Team Providers Name Role Phone Lurdes Thomas MD Primary Care Provider Reason for Visit Reason Comments Spine Lumbar Encounter Details Date Type Department Care Team Description 06/10/2015 Office Visit [place] [facility] Chris Cain, Right -sided low back Therapy Aurora Briggs, PT pain with right-sided [address] granados (Primary Dx) [place] [address] [place], [place] [phone] (Wo rk) Social History Tobacco Use Types Packs/Day Years Used Date Smoking Tobacco: Never Smokeless Tobacco: Never Alcohol Use Standard Drinks/Week Comments Yes 0 (1 standard drink = 0.6 oz pure alcoho l) Sex Assigned at Date Recorded Not on file documented as of this encounter Progress Notes Aurora Hickey, PT - 06/23/2015 2:04 PM CST Encounter date: 06/10/2015 Pt : 1955 [facility] Physical Therapy Progress Note Visit Number: 7 Initial Certification Period: 05/19/2015 to 08/17/15 Referring Provider: Dr. Maria Esther Phan Visit Diagnosis/ICD: Diagnosis ICD-10-CM ICD-9-CM 1. Right-sided low back pain with right-sided sciatica M54.41 724.3 Precautions: none Onset/Referral Date: 05/19/2015 Orders: Evaluate and treat. [facility] Services: Programming RN, Social Work, [...] above OBJ info and- therapeutic ex (CPT 21447)12 min hip series of stretches to combine some of the exercises he has been doing reviewed flexion in step standing, left, than right. He still gets a little glitch on right side side glide left single leg raise in hands/knees position, 5 sec hold manual therapy (CPT 62620) 10 min In left sanchez position, MET to low T and lumbar spine ultrasound (CPT 96648) 11 min US to right LB for 10 min, 1.3 w/cm2, continuous manual therapy (CPT 97683) 12 min soft tissue mobilization use of tile decorator tool to T and lumbar parsspinals Timed [...] manual therapy, exercise progression, modalities if needed. ROSCOPE OPERATOR documented in this encounter Plan of Treatment Not on filedocumented as of this encounter Visit Diagnoses Diagnosis Right-sided low back pain with right-beck ed sciatica (HRC) - Primary documented in this encounter Care Teams Cleaning Matron Relationship Specialty Start Date End Date Lurdes Thomas MD PCP - General 06/18/14 12/11/19 documented as of this encounter
--- OUTSIDE RECORDS SUMMARY | 2022-01-25 10:28 | XMS_ITS | Encounter Summary ---
:1955 Author Organization [employer] Address [address] [address] Care Team Providers Name Role Phone Lurdes Thomas MD Primary Care Provider Reason for Visit Reason Comments Social Service Encounter Details Date Type Department Care Team Description 05/19/2015 Office Visit [facility] Fabi Beverly, Parkinson' s disease Services FINANCIAL COACH (Primary Dx) [address] [place] [address] Social History Tobacco Use Types [...] stress and workplace environment. 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 He is trying to do parts of [...] information provided for future concerns or questions. 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
--- OUTSIDE RECORDS SUMMARY | 2022-01-25 10:28 | XMS_ITS | Encounter Summary ---
:1955 Author Organization [facility] Address [address], [place] [address] Care Team Providers Name Role Phone Lurdes Thomas MD Primary Care Provider Reason for Visit Reason Comments Spine Lumbar Encounter Details Date Type Department Care Team Description 05/28/2015 Office Visit [place] [facility] Chris Cain, Right -sided low back Therapy Aurora Briggs, PT pain with right-sided [address] granados (Primary Dx) [place] [address] [place], [place] [phone] (Wo rk) Social History Tobacco Use Types Packs/Day Years Used Date Smoking Tobacco: Never Smokeless Tobacco: Never Alcohol Use Standard Drinks/Week Comments Yes 0 (1 standard drink = 0.6 oz pure alcoho l) Sex Assigned at Date Recorded Not on file documented as of this encounter Progress Notes Aurora Hickey, PT - 05/28/2015 12:14 PM CST Encounter date: 05/28/2015 Pt : 1955 [facility] Physical Therapy Progress Note Visit Number: 2 Initial Certification Period: 05/19/2015 to 08/17/15 Referring Provider: Dr. Maria Esther Phan Visit Diagnosis/ICD: Diagnosis ICD-10-CM ICD-9-CM 1. Right-sided low back pain with right-sided sciatica M54.41 724.3 Precautions: none Onset/Referral Date: 05/19/2015 Reason for Referral: -Outpatient PT. Orders: Evaluate and treat. [facility] Services: Programming RN, Social Work, [...] with REIL Treatment/Education Today: therapeutic ex (CPT 66079)15 min time spent with orthopedic assessment manual therapy (CPT 49893) 15 min in prone, general mobilization. In supine, end range rotational thrust to the right, repeated twice, and to the left, with cavitation. Afterwards, no pain with supine to sit, and sit to stand. 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
--- OUTSIDE RECORDS SUMMARY | 2022-01-25 10:28 | XMS_ITS | Encounter Summary ---
:1955 Author Organization [employer] Address [address] [place] [address] Care Team Providers Name Role Phone Lurdes Thomas MD Primary Care Provider Reason for Visit Reason Comments Follow-up Back Pain Encounter Details Date Type Department Care Team Description 05/19/2015 Office Visit [facility] Maria Esther Phan PD (Parkinson's disease) (Pr imary Dx); [address] Dae Amaro MD Right-sided low back pain with right-beck ed sciatica Drive [address] [place], [place] S [address] [place], [place] [phone] (Wo rk) Social History Tobacco Use Types Packs/Day Years Used Date Smoking Tobacco: Never Smokeless Tobacco: Never Alcohol Use Standard Drinks/Week Comments Yes 0 (1 standard drink = 0.6 oz pure alcoho l) Sex Assigned at Date Recorded Not on file documented as of this encounter Last Filed Vital Signs Vital Sign Reading Time Taken Comments Blood Pressure 122/78 05/19/2015 8:29 AM LOBSTERMAN Pulse 76 05/19/2015 8:29 AM LOBSTERMAN Temperature - - Respiratory Rate - - Oxygen Saturation - - Inhaled Oxygen Concentration - - Weight 90.6 kg (199 lb 12.8 oz) 05/19/2015 8:24 AM LOBSTERMAN Height - - Body Mass Index 26.37 07/08/2014 8:56 AM LOBSTERMAN documented in this encounter Progress Notes Maria Esther Phan MD - 05/19/2015 8:52 AM CST Dictated TERMAN documented in this encounter Plan of Treatment Not on filedocumented as of this encounter Visit Diagnoses Diagnosis PD (Parkinson's disease) (HRC) - Primary Paralysis agitans Right-sided low back pain with right-beck ed sciatica (HRC) documented in this encounter Care Teams Driver Material Handler Relationship Specialty Start Date End Date Lurdes Thomas MD PCP - General 06/18/14 12/11/19 documented as of this encounter
--- OUTSIDE RECORDS SUMMARY | 2022-01-25 10:28 | XMS_ITS | Encounter Summary ---
:1955 Author Organization [employer] Address [address], [place] [address] Care Team Providers Name Role Phone Lurdes Thomas MD Primary Care Provider Reason for Visit Reason Comments No Show Encounter Details Date Type Department Care Team Description 03/03/2015 Telephone [facility] Hilario, RN No Show [address] [place] [address] Social History Tobacco Use [...] and leave him a message. I called [phone] and it sounded like someone answered but no voice heard. Iwill try later. documented in this encounter Plan of Treatment Not on filedocumented as of this encounter Visit Diagnoses Not on filedocumented in this encounter Care Teams Skill Training Program Coordinator Relationship Specialty Start Date End Date Lurdes Thomas MD PCP - General 06/18/14 12/11/19 documented as of this encounter
--- OUTSIDE RECORDS SUMMARY | 2022-01-25 10:29 | XMS_ITS | Encounter Summary ---
:1955 Author Organization [employer] Address [address] [place] [address] Care Team Providers Name Role Phone Lurdes Thomas MD Primary Care Provider Reason for Visit Reason Comments Follow-up Encounter Details Date Type Department Care Team Description 10/07/2014 Office Visit [facility] Parashos, Sotirios Paralysis agitans [address], MD (Primary Dx) [address] [facility] [address] [place], [place] [phone] (Wo rk) Social History Tobacco Use Types [...] Body Mass Index 27.18 07/08/2014 8:56 AM MAIL OFFICER documented in this encounter Patient Instructions Patient [...] day. 2. I will have our social work case manager, Fabi Beverly contact you and your as [...] agitans documented in this encounter Care Teams Fire Protection Designer Relationship Specialty Start Date End Date Lurdes Thomas MD PCP - General 06/18/14 12/11/19 documented as of this encounter
--- OUTSIDE RECORDS SUMMARY | 2022-01-25 10:29 | XMS_ITS | Encounter Summary ---
:1955 Author Organization [employer] Address [address], [place] [address] Care Team Providers Name Role Phone Lurdes Thomas MD Primary Care Provider Reason for Visit Reason Comments Social Service Encounter Details Date Type Department Care Team Description 10/09/2014 Telephone [place] [facility] Fabi Quinones LISW Social Service [address] [place], [place] [address] Social History Tobacco Use [...] with PD and a well-known clinic in [place]. Natasha stated she had time today to call and inquire about insurance and get an appointment set. She was appreciative of the resources and support from Dr Phan. documented in this encounter Plan of Treatment Not on filedocumented as of this encounter Visit Diagnoses Not on filedocumented in this encounter Care Teams Insurance Administrative Assistant Relationship Specialty Start Date End Date Lurdes Thomas MD PCP - General 06/18/14 12/11/19 documented as of this encounter
--- OUTSIDE RECORDS SUMMARY | 2022-01-25 10:29 | XMS_ITS | Encounter Summary ---
:1955 Author Organization [facility] Address [address] [place] [address] Care Team Providers Name Role Phone Lurdes Thomas MD Primary Care Provider Reason for Referral Specialty Diagnoses / Procedures Referred By Contact Refer red To Contact Maria Esther Phan MD [address] [place], [place] [address] Referral ID Status Reason Start Date Expiration Date Visits Requ ested Visits Authorized Reason for Visit Reason Comments Adl Problem Encounter Details Date Type Department Care Team Description 11/04/2014 Initial Consult Darrin Moore-d efined conditions(799.89) (Primary Dx); Occupational Therapy Tylor Bates, OTR/L Paralysis agitans [address] [phone] Social History Tobacco Use Types Packs/Day Years Used Date Smoking Tobacco: Never Smokeless Tobacco: Never Alcohol Use Standard Drinks/Week Comments Yes 0 (1 standard drink = 0.6 oz pure alcoho l) Sex Assigned at Date Recorded Not on file documented as of this encounter Progress Notes Tylor Marr, OTR/L - 11/08/2014 1:51 PM CDT Encounter Date: 11/04/2014 Pt. : 1955 [facility] Occupational Therapy - Evaluation/Plan of Care Initial Certification Period: 11/04/2014 to 01/03/15 Referring Provider: Dr. Maria Esther Phan Referring Diagnosis: Parkinson's Disease Visit Diagnosis/IDC Code: Diagnosis (ICD9) ICD-9-CM ICD-10-CM 1. Other ill-defined conditions(799.89) 799.89 R69 2. Paralysis agitans ([facility]) 332.0 G20 Precautions: recent DBS [...] bilateral DBS(09/2014). Previous Occupational Therapy: Received at [facility] [place]. Pain: Location: back pain when getting up rom chairs , gettign up from bed, getting in/out of car. Education: High school. 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 Living Environment: Private home, more than 1 level. Living Location: [facility]. Driving: Yes. Community Mobility: Independent community [...] limits. -Right upper extremity: within normal limits. -Quality Improvement Analyst: Left - 127 lbs=99%; Right -128 lbs.=99% [...] did undergo successful DBS surgery. 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 H e presents to address continuing difficulty [...] Achievement or Learning: Distance from clinic. 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 Prognosis: Excellent for established goals. PLAN Planned [...] exercise program. Procedures: Occupation Therapy Evaluation (CPT 56666): 30 minutes ADL/Self management (CPT 80532): 15 minutes Therapeutic Exercise (CPT 89598): 15 minutes Total Treatment Time: 60 minutes. The trailer truck driver is completed by the therapist and the referring clinician's electronic signature certifies medical necessity for the plan above. Tylor Marr OTR/L Lic#[id number] documented in this encounter Plan of Treatment Scheduled Referrals Name Type Priority Associated Diagnoses Order S [facility] Occupational Therapy Referral Routine Paralysis agitans (H [facility]) Ordered: 11/04/2014, Expires: 2014 documented as of this encounter Visit Diagnoses Diagnosis Other ill-defined conditions(799.89) - P rimary Other ill-defined conditions Paralysis agitans (HRC) Paralysis agitans documented in this encounter Care Teams Video Specialist Relationship Specialty Start Date End Date Lurdes Thomas MD PCP - General 06/18/14 12/11/19 documented as of this encounter
--- OUTSIDE RECORDS SUMMARY | 2022-01-25 10:29 | XMS_ITS | Encounter Summary ---
:1955 Author Organization [facility] Address [address], [place] [address] Care Team Providers Name Role Phone Lurdes Thomas MD Primary Care Provider Encounter Details Date Type Department Care Team Description 10/06/2014 Notes/Orders [facility] Shawnee Hilario, Paralysis agitans [address] (Primary D x) [place] [address] Social History Tobacco Use Types [...] agitans documented in this encounter Care Teams Rose Grower Relationship Specialty Start Date End Date Lurdes Thomas MD PCP - General 06/18/14 12/11/19 documented as of this encounter
--- OUTSIDE RECORDS SUMMARY | 2022-01-25 10:29 | XMS_ITS | Encounter Summary ---
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 Discussed the process in general and [...] on filedocumented in this encounter Care Teams Abrasive Grader Helper Relationship Specialty Start Date End Date Lurdes Thomas MD PCP - General 06/18/14 12/11/19 documented as of this encounter
--- OUTSIDE RECORDS SUMMARY | 2022-01-25 10:29 | XMS_ITS | Encounter Summary ---
:1955 Author Organization [email or web address] Address [address] [address] Care Team Providers Name Role Phone Lurdes Thomas MD Primary Care Provider Encounter Details Date Type Department Care Team Description 10/22/2014 Notes/Orders [facility] 39[address] Zhanna Pedraza MD Neurology [address] [facility] 39[address] [facility] [address] [place] [id number] [phone] Social History Tobacco Use Types Packs/Day Years [...] on filedocumented in this encounter Care Teams Spar Finisher Relationship Specialty Start Date End Date Lurdes Thomas MD PCP - General 06/18/14 12/11/19 documented as of this encounter
--- OUTSIDE RECORDS SUMMARY | 2022-01-25 10:29 | XMS_ITS | Encounter Summary ---
:1955 Author Organization [id number] Address [address] [address] Care Team Providers Name Role Phone Lurdes Thomas MD Primary Care Provider Reason for Visit Reason Comments Forms Encounter Details Date Type Department Care Team Description 11/12/2014 Telephone [facility] Doris Arauz, RN Forms [address] [place], [place] [address] Social History Tobacco Use [...] on filedocumented in this encounter Care Teams Gas Meter Repairer Relationship Specialty Start Date End Date Lurdes Thomas MD PCP - General 06/18/14 12/11/19 documented as of this encounter
--- OUTSIDE RECORDS SUMMARY | 2022-01-25 10:29 | XMS_ITS | Encounter Summary ---
:1955 Author Organization [facility] Address [address] [place] [address] Care Team Providers Name Role Phone Lurdes Thomas MD Primary Care Provider Reason for Referral Specialty Diagnoses / Procedures Referred By Contact Refer red To Contact Maria Esther Phan MD [address] [place], [place] [address] Referral ID Status Reason Start Date Expiration Date Visits Requ ested Visits Authorized Reason for Visit Reason Comments VOICE, LOSS OF Encounter Details Date Type Department Care Team Description 11/04/2014 Initial Consult [facility] Casi De La Rosa (Primary Dx); Therapy J, REAL ESTATE DIRECTOR Dysphonia; [address] [place], [place] [phone] Social History Tobacco Use Types Packs/Day Years Used Date Smoking Tobacco: Never Smokeless Tobacco: Never Alcohol Use Standard Drinks/Week Comments Yes 0 (1 standard drink = 0.6 oz pure alcoho l) Sex Assigned at Date Recorded Not on file documented as of this encounter Progress Notes Casi De La Rosa, REAL ESTATE DIRECTOR - 11/04/2014 4:56 PM CDT Encounter Date: 11/04/2014 Patient : 1955 Speech Therapy - Parkinson's Disease Evaluation and Plan of Care [facility] Multidisciplinary Assessment Outpatient Evaluation Initial [...] feels it is slightly worse. 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 He is on the phone a [...] Any liquids. Previous Speech Therapy: Received at [facility] [place]. Evaluation 08/23/07 - WFL. Evaluation 06/18/14 with recommendation for treatment. He did not follow up then. Is ready to pursue treatmentnow. Hand Dominance: Right Hearing Acuity: Within Functional Limits. Glasses: Reading glasses. Education: High school. 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 Marital Status: . Living Environment: [...] on his own. Recommendations: Individual speech therapy. Structural Analyst Speech Goal: Client will be able to be understood without repetition 80% of the time in their daily environment as measured by patient report. Longterm Swallowing Goal: -None Longterm Memory/Cognition Goal: None. Short Term Goals: -Independent [...] achieve intelligible loudness. Goals Achieved Today at [facility] [place]: -Client and/or family verbalized comprehension of today's [...] family in agreement with care plan. The supervisor treating and pumping is completed by the therapist, and the referring clinician's electronic signature certifies medical necessity for the plan above. documented in this encounter Plan of Treatment Scheduled Referrals Name Type Priority Associated Diagnoses Order S [facility] Speech Therapy Referral Routine Paralysis agitans (HRC) Or dered: 11/04/2014, Expires: 2014 documented as of this encounter Visit Diagnoses Diagnosis Paralysis agitans (HRC) - Primary Paralysis agitans Dysphonia Dysarthria documented in this encounter Care Teams Earth Science Professor Relationship Specialty Start Date End Date Lurdes Thomas MD PCP - General 06/18/14 12/11/19 documented as of this encounter
--- OUTSIDE RECORDS SUMMARY | 2022-01-25 10:29 | XMS_ITS | Encounter Summary ---
:1955 Author Organization [employer] Address [address] [place] [address] Care Team Providers Name Role Phone Lurdes Thomas MD Primary Care Provider Reason for Referral Specialty Diagnoses / Procedures Referred By Contact Refer red To Contact Maria Esther Phan MD [address] [place], [place] [address] Referral ID Status Reason Start Date Expiration Date Visits Requ ested Visits Authorized Reason for Visit Reason Comments Balance/gait Dysfunction Encounter Details Date Type Department Care Team Description 11/04/2014 Initial Consult [facility] Katalina Laughlin normality of gait (Primary Dx); Therapy L, PT Paralysis agitans; [address] [place] [address] [facility] [place] [address] [phone] Social History Tobacco Use Types Packs/Day Years [...] 1955 Physical Therapy Parkinson Evaluation/Plan of Care [facility] Initial Certification Period: 11/04/2014 to 02/02/15 Referring Provider: Dr. Maria Esther Phan Visit Diagnosis/ICD: Diagnosis (ICD9) ICD-9-CM ICD-10-CM 1. Abnormality of gait 781.2 R26.9 2. Paralysis agitans (HCC) 332.0 G20 3. Personal history of fall V15.88 Z91.81 Precautions: Fall precautions, DBS Onset/Referral Date: 10/14/14 Reason for Referral: Outpatient PT. Orders: Evaluate and treat. [facility] [place] Services: Occupational therapy. Speech therapy. Exacerbation Date: [...] to residence: Stairs to enter. -[facility]. -Living environment: Urban-mostly paved areas [...] Rapid speech, occasional stuttering. 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 Did recently travel to [place] on business, however. OBJECTIVE Blood Pressure: Symptoms: [...] Goal Achievement: Distance from center (lives in [place]) Rehab Prognosis: Good PLAN Planned Treatment: ADL/Home [...] 90 day(s). Total Treatment: 60 minutes The wax pattern assembler is completed by the therapist and the referring clinician's electronic signature certifies medical necessity for the plan above. Katalina Laughlin PT Physical Therapist [place] License # [id number] documented in this encounter Plan of Treatment Scheduled Referrals Name Type Priority Associated Diagnoses Order S [facility] Physical Therapy Referral Routine Paralysis agitans (HRC) Ordered: 11/04/2014, Expires: 2014 documented as of this encounter Visit Diagnoses Diagnosis Abnormality of gait - Primary Paralysis agitans (HRC) Paralysis agitans Personal history of fall documented in this encounter Care Teams Driver/Sales Workers Relationship Specialty Start Date End Date Lurdes Thomas MD PCP - General 06/18/14 12/11/19 documented as of this encounter
--- OUTSIDE RECORDS SUMMARY | 2022-01-25 10:29 | XMS_ITS | Encounter Summary ---
:1955 Author Organization [facility] Address [address] [place] [address] Care Team Providers Name Role Phone Lurdes Thomas MD Primary Care Provider Reason for Referral Specialty Diagnoses / Procedures Referred By Contact Refer red To Contact Maria Esther Phan MD [address] [place], [place] [address] Referral ID Status Reason Start Date Expiration Date Visits Requ ested Visits Authorized Reason for Visit Reason Comments Device Check Encounter Details Date Type Department Care Team Description 10/14/2014 Nursing Visit [facility] Shawnee Hilario, RN [place] [address] ar[place], [place] [address] Social History Tobacco Use [...] DBS implantation. Surgeon:Dr. Gonzalez Rowland Surgery date/location: [facility] 09/09/2014 Battery replacement: None Device type: Activa [...] 2.2V PW 60 Rate 150 Range on systems programmer 2.1-2.7 Right STN 9 negative 10 positive 2.1V PW 60 Rate 150 Range on systems programmer 1.8-2.6 If he wants to try [...] agitans documented in this encounter Care Teams Office Associate Relationship Specialty Start Date End Date Lurdes Thomas MD PCP - General 06/18/14 12/11/19 documented as of this encounter
--- OUTSIDE RECORDS SUMMARY | 2022-01-25 10:29 | XMS_ITS | Encounter Summary ---
:1955 Author Organization [facility] [employer] Address [address] [place] [address] Care Team Providers Name Role Phone Lurdes Thomas MD Primary Care Provider Reason for Referral Specialty Diagnoses / Procedures Referred By Contact Refer red To Contact Maria Esther Phan MD [address] [place], [place] [address] Referral ID Status Reason Start Date Expiration Date Visits Requ ested Visits Authorized Reason for Visit Reason Comments Device Check Encounter Details Date Type Department Care Team Description 12/09/2014 Nursing Visit [facility] Doris Arauz, PD (Parkinson's disease) (Pr imary Dx); [address] [place] [address] Social History Tobacco Use Types [...] implantation. Surgeon: Dr. Gonzalez Rowland Surgery date/location: [facility] 09/09/14 Battery replacement: None Device type: Activia [...] Amp: 2.5, PW: 60, Rate: 150. Pt application programmer analyst range: 2.1-2.7 Right SNT: 9 Negative, 10 Positive, Amp: 2.4, PW: 60, Rate: 150. Pt application programmer analyst range: 2.0-2.6 Total face to [...] agitans documented in this encounter Care Teams Wad Compressor Operator Adjuster Relationship Specialty Start Date End Date Lurdes Thomas MD PCP - General 06/18/14 12/11/19 documented as of this encounter
--- OUTSIDE RECORDS SUMMARY | 2022-01-25 10:29 | XMS_ITS | Encounter Summary ---
:1955 Author Organization [facility] Address [address] [place] [address] Care Team Providers Name Role Phone Lurdes Thomas MD Primary Care Provider Encounter Details Date Type Department Care Team Description 09/25/2014 Notes/Orders [facility] Millie Pedraza MD [address] [place] [address] [place], [place] [address] [address] [facility] [address] (Wo rk) Social History Tobacco Use Types [...] on filedocumented in this encounter Care Teams Midlevel Provider Relationship Specialty Start Date End Date Lurdes Thomas MD PCP - General 06/18/14 12/11/19 documented as of this encounter
--- OUTSIDE RECORDS SUMMARY | 2022-01-25 10:29 | XMS_ITS | Encounter Summary ---
:1955 Author Organization [facility] Address [address], [place] [address] Care Team Providers Name Role Phone Lurdes Thomas MD Primary Care Provider Encounter Details Date Type Department Care Team Description 10/14/2014 Notes/Orders [facility] Shawnee Hilario, Paralysis agitans [address] RN (Primary D x) [place] [address] Social History Tobacco Use Types [...] agitans documented in this encounter Care Teams French Folding Machine Operator Relationship Specialty Start Date End Date Lurdes Thomas MD PCP - General 06/18/14 12/11/19 documented as of this encounter
--- OUTSIDE RECORDS SUMMARY | 2022-01-25 10:29 | XMS_ITS | Encounter Summary ---
:1955 Author Organization [facility] Address [address] [place] [address] Care Team Providers Name Role Phone Lurdes Thomas MD Primary Care Provider Reason for Referral Specialty Diagnoses / Procedures Referred By Contact Refer red To Contact Maria Esther Phan MD [address] [place], [place] [address] Referral ID Status Reason Start Date Expiration Date Visits Requ ested Visits Authorized Reason for Visit Reason Comments Device Check Encounter Details Date Type Department Care Team Description 10/07/2014 Nursing Visit [facility] Shawnee Hilario, RN [place] [address], [place] [address] Social History Tobacco Use [...] Dr. Gonzalez Rowland Surgery date/location: September 09 [facility] Device type: Activa PC Indication:Parkinsons Update since [...] 150 therapy impedence 1159 current 1.816 Patient Manager Sterile Processing Range: Left 2.1-2.7 Right 1.7-2.5. Total face [...] agitans documented in this encounter Care Teams Retail Link Analyst Relationship Specialty Start Date End Date Lurdes Thomas MD PCP - General 06/18/14 12/11/19 documented as of this encounter
--- OUTSIDE RECORDS SUMMARY | 2022-01-25 10:29 | XMS_ITS | Encounter Summary ---
:1955 Author Organization [employer] Address [address], [place] [address] Care Team Providers Name Role Phone Lurdes Thomas MD Primary Care Provider Reason for Visit Reason Comments Sleep problems Encounter Details Date Type Department Care Team Description 11/12/2014 Telephone [facility] Doris Arauz, RN Sleep problems [address] [place], [place] [address] Social [...] in this encounter Care Teams Sales And Production Manager Relationship Specialty Start Date End Date Lurdes Thomas MD PCP - General 06/18/14 12/11/19 documented as of this encounter
--- OUTSIDE RECORDS SUMMARY | 2022-01-25 10:29 | XMS_ITS | Encounter Summary ---
:1955 Author Organization [facility] Address [address], [place] [address] Care Team Providers Name Role Phone Lurdes Thomas MD Primary Care Provider Encounter Details Date Type Department Care Team Description 02/02/2015 Notes/Orders [facility] Katalina Laughlin, PT [address] [place] [address] [place] [address] [place], [place] [phone] (Wo rk) Social History Tobacco Use [...] 90 day(s). Katalina Laughlin PT Physical Therapist [place] License # [id number] documented in this encounter Plan of Treatment Not on filedocumented as of this encounter Visit Diagnoses Not on filedocumented in this encounter Care Teams Steam Power Plant Operator Relationship Specialty Start Date End Date Lurdes Thomas MD PCP - General 06/18/14 12/11/19 documented as of this encounter
--- OUTSIDE RECORDS SUMMARY | 2022-01-25 10:29 | XMS_ITS | Encounter Summary ---
:1955 Author Organization [employer] Address [address], [place] [address] Care Team Providers Name Role Phone Lurdes Thomas MD Primary Care Provider Reason for Visit Reason Comments Sleep problems Back Pain Questions Encounter Details Date Type Department Care Team Description 12/02/2014 Office Visit [facility] Parashos, Maria Esther Paralysis agitans [address] A, MD (Primary Dx) Drive [address] [facility] [address] [place], [place] [phone] [address] (Wo rk) Social History Tobacco Use Types [...] Body Mass Index 27.73 07/08/2014 8:56 AM SORTING SUPERVISOR documented in this encounter Patient Instructions Patient InstructionsMaria Esther Phan MD - 12/02/2014 3:43 PM CDT Please call the [facility] nurse line for any questions, [...] agitans documented in this encounter Care Teams Waste Cotton Cleaner Relationship Specialty Start Date End Date Lurdes Thomas MD PCP - General 06/18/14 12/11/19 documented as of this encounter
--- OUTSIDE RECORDS SUMMARY | 2022-01-25 10:29 | XMS_ITS | Encounter Summary ---
:1955 Author Organization [employer] Address [address] [place] [address] Care Team Providers Name Role Phone Lurdes Thomas MD Primary Care Provider Reason for Visit Reason Comments Medication Questions Encounter Details Date Type Department Care Team Description 12/08/2014 Telephone [facility] Sheri Pearson, Medication Questions [address] corina [place], [place] [address] Social History Tobacco Use [...] on filedocumented in this encounter Care Teams Polysomnography Tech Relationship Specialty Start Date End Date Lurdes Thomas MD PCP - General 06/18/14 12/11/19 documented as of this encounter
--- OUTSIDE RECORDS SUMMARY | 2022-01-25 10:29 | XMS_ITS | Encounter Summary ---
:1955 Author Organization [facility] Address [address] [place] [address] Care Team Providers Name Role Phone Lurdes Thomas MD Primary Care Provider Reason for Referral Specialty Diagnoses / Procedures Referred By Contact Refer red To Contact Maria Esther Phan MD [address] [place], [place] [address] Referral ID Status Reason Start Date Expiration Date Visits Requ ested Visits Authorized Reason for Visit Reason Comments Device Check Encounter Details Date Type Department Care Team Description 11/12/2014 Nursing Visit [facility] Doris Arauz, [place] [id number] corina [place]ERR[place], [place] [address] Social History Tobacco Use [...] implantation. Surgeon: Dr. Gonzalez Rowland Surgery date/location: [facility], 09/09/14 Battery replacement: None Device type: [...] check. Therapy impedence: 1410 on 1.579. Pt perl programmer range: 2.1-2.7 R STN: 10 Positive, 9 Negative, Amp: 2.1, PW: 60, Rate: 150. No problems found on 1.5v impedence check. Therapy impedence: 1149 on 1.831. Pt perl programmer range: 1.7-2.5 Final settings: No changes [...] agitans documented in this encounter Care Teams Marble Chip Terrazzo Worker Relationship Specialty Start Date End Date Lurdes Thomas MD PCP - General 06/18/14 12/11/19 documented as of this encounter
--- OUTSIDE RECORDS SUMMARY | 2022-01-25 10:29 | XMS_ITS | Encounter Summary ---
:1955 Author Organization [employer] Address [address], [place] [address] Care Team Providers Name Role Phone Lurdes Thomas MD Primary Care Provider Reason for Visit Reason Comments Back Pain Encounter Details Date Type Department Care Team Description 12/02/2014 Telephone [facility] Katalina Laughlin, PT Back Pain [address] arriaga [address] [place], [place] [address] [place], [place] [phone] (Wo rk) Social History Tobacco Use [...] schedule. Offered to transfer his care to [facility], which he prefers to do. Suggested scheduling PT visit there as soon as possible. Will send email to PT at [place] to coordinate care. Katalina Laughlin PT Physical Therapist [place] License # [id number] documented in this encounter Plan of Treatment Not on filedocumented as of this encounter Visit Diagnoses Not on filedocumented in this encounter Care Teams Supervisor Motor Vehicle Assembly Relationship Specialty Start Date End Date Lurdes Thomas MD PCP - General 06/18/14 12/11/19 documented as of this encounter
--- OUTSIDE RECORDS SUMMARY | 2022-01-25 10:29 | XMS_ITS | Encounter Summary ---
:1955 Author Organization [employer] Address [address] [place] [address] Care Team Providers Name Role Phone Lurdes Thomas MD Primary Care Provider Reason for Visit Reason Comments Questions Encounter Details Date Type Department Care Team Description 11/28/2014 Telephone [facility] Doris Arauz RN Questions [address] [place], [place] [address] Social History Tobacco Use [...] filedocumented in this encounter Care Teams Medical Billing Specialist Relationship Specialty Start Date End Date Lurdes Thomas MD PCP - General 06/18/14 12/11/19 documented as of this encounter
--- OUTSIDE RECORDS SUMMARY | 2022-01-25 10:29 | XMS_ITS | Encounter Summary ---
:1955 Author Organization [employer] Address [address], [place] [address] Care Team Providers Name Role Phone Lurdes Thomas MD Primary Care Provider Reason for Visit Reason Comments Post-Op Follow Up Call Encounter Details Date Type Department Care Team Description 09/23/2014 Telephone [facility] Shawnee Hilario RN Post-Op Follow Up Call [address] [place] [address] Social History Tobacco Use Types Packs/Day [...] on filedocumented in this encounter Care Teams Enterostomal Nurse Relationship Specialty Start Date End Date Lurdes Thomas MD PCP - General 06/18/14 12/11/19 documented as of this encounter
--- OUTSIDE RECORDS SUMMARY | 2022-01-25 10:29 | XMS_ITS | Encounter Summary ---
:1955 Author Organization [employer] Address [address] [address] Care Team Providers Name Role Phone Lurdes Thomas MD Primary Care Provider Reason for Visit Reason Comments Other Encounter Details Date Type Department Care Team Description 12/09/2014 Telephone [facility] Doris Arauz, RN Other [address] [place], [place] [address] Social History Tobacco Use [...] agitans documented in this encounter Care Teams Accounts Payable Bookkeeper Relationship Specialty Start Date End Date Lurdes Thomas MD PCP - General 06/18/14 12/11/19 documented as of this encounter
--- OUTSIDE RECORDS SUMMARY | 2022-01-25 10:30 | XMS_ITS | Encounter Summary ---
:1955 Author Organization [employer] Address [address] [place] [address] Care Team Providers Name Role Phone Lurdes Thomas MD Primary Care Provider Reason for Referral Specialty Diagnoses / Procedures Referred By Contact Refer red To Contact Maria Esther Phan MD [address] [place], [place] [address] Referral ID Status Reason Start Date Expiration Date Visits Requ ested Visits Authorized UTER FORENSICS TECHNICIAN Reason for Visit Reason Comments VOICE, LOSS OF Encounter Details Date Type Department Care Team Description 06/18/2014 Initial Consult [facility] Paige Quesada inson's disease (Primary Dx); Therapy M, FINANCIAL DATA ANALYST Dysphonia; [address] [place] [phone] Social History Tobacco Use Types Packs/Day Years Used Date Smoking Tobacco: Never Smokeless Tobacco: Never Alcohol Use Standard Drinks/Week Comments Yes 0 (1 standard drink = 0.6 oz pure alcoho l) Sex Assigned at Date Recorded Not on file documented as of this encounter Progress Notes Paige Garcia, FINANCIAL DATA ANALYST - 06/18/2014 5:17 PM CST Encounter Date: 06/18/2014 Patient : 1955 Speech Therapy - Parkinson's Disease Evaluation and Plan of Care [facility] Services Multidisciplinary Assessment Clinic Outpatient Evaluation [...] Previous Speech Therapy: Received at [facility]. Evaluation only 08/23/2007. Hand Dominance: Right Hearing Acuity: Within Functional Limits. Glasses: No. Education: High school. 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 Marital Status: . Living Environment: Lives [...] Recommendations: Brief course of individual speech therapy. Barrel Rifler Button Speech Goal: Client will be able to be understood without repetition 80% of the time in their daily environment as measured by patient report. Barrel Rifler Button Swallowing Goal: -None Barrel Rifler Button Memory/Cognition Goal: None. Short Term Goals: -Independent in speech/voice home program. -Client will improve respiratory support for speech and voice to provide a basis for intelligible speech. -Client will increase articulation accuracy for improved speech intelligibility. -Client will decrease speech rate for improved intelligibility. Goals Achieved Today at [facility]: -Client and/or family verbalized comprehension of today's [...] family in agreement with care plan. The heavy equipment operator/paver is completed by the therapist, and the referring clinician's electronic signature certifies medical necessity for the plan above. documented in this encounter Plan of Treatment Scheduled Referrals Name Type Priority Associated Diagnoses Order S [facility] Speech Therapy Referral Routine Paralysis agitans (HRC) Or dered: 06/20/2014, Expires: 2014 documented as of this encounter Visit Diagnoses Diagnosis Parkinson's disease (HRC) - Primary Dysphonia Paralysis agitans (HRC) Paralysis agitans documented in this encounter Care Teams Assistant Chief Of Police Relationship Specialty Start Date End Date Lurdes Thomas MD PCP - General 06/18/14 12/11/19 documented as of this encounter
--- OUTSIDE RECORDS SUMMARY | 2022-01-25 10:30 | XMS_ITS | Encounter Summary ---
:1955 Author Organization [employer] Address [address], [place] [address] Care Team Providers Name Role Phone Lurdes Thomas MD Primary Care Provider Reason for Visit Reason Comments Follow-up Encounter Details Date Type Department Care Team Description 07/08/2014 Office Visit [facility] Parashos, Sotirios Paralysis agitans [address] A, MD (Primary Dx) Drive [address] [facility] [address] [place], [place] [phone] (Wo rk) Social History Tobacco Use Types Packs/Day Years Used Date Smoking Tobacco: Never Smokeless Tobacco: Never Alcohol Use Standard Drinks/Week Comments Yes 0 (1 standard drink = 0.6 oz pure alcoho l) Sex Assigned at Date Recorded Not on file documented as of this encounter Last Filed Vital Signs Vital Sign Reading Time Taken Comments Blood Pressure 138/78 07/08/2014 9:00 AM SPINNERET CLEANER Pulse 84 07/08/2014 9:00 AM SPINNERET CLEANER Temperature - - Respiratory Rate - - Oxygen Saturation - - Inhaled Oxygen Concentration - - Weight 98.5 kg (217 lb 3.2 oz) 07/08/2014 8:56 AM SPINNERET CLEANER Height 185.4 cm (6' 0.99) 07/08/2014 8:56 AM SPINNERET CLEANER Body Mass Index 28.66 07/08/2014 8:56 AM SPINNERET CLEANER documented in this encounter Patient Instructions Patient Doris Awad RN - 07/08/2014 8:56 AM CST Thank you for enrolling in [employer]. Please follow the instructions below to securely access your online medical record. [employer] allows you to send messages to your doctor, view your test results, renewyour prescriptions, schedule appointments, and more. How Do I Sign Up? 1. In your Internet browser, go to: [email or web address] 2. Click on the Enter Activation Code link under the New User? section. You will see the New Member Sign Up page. 3. Enter your [employer] Activation Code exactly as it appears below. You will not need to use this code after you???ve completed the sign-up process. If you do not sign up before the expiration date, youmust request a new code. [employer] Activation Code: [email or web address] Expires: 08/07/2014 8:56 AM 4. Enter your Date of (mm/dd/yyyy), Home Phone Number and Zip Code as indicated, then click Next. You will be taken to the next sign-up page 5. Create a [employer] ID. This will be your [employer] login ID and cannot be changed, so think of one that is secure and easy to remember. 6. Create a [employer] password. You can change your password at any time. 7. Enter your Security Question and Answer. This can be used at a later time if you forget your password. Click Next. 8. Enter your e-mail address. You will receive e-mail notification when new information is availablein [employer]. 9. Click Sign In. You can now view your medical record. Additional Information If you have questions, you can call [phone] to talk to our [employer] staff. Remember, [employer] is NOT to be used for urgent needs. For medical emergencies, dial 911. NERET CLEANER documented in this encounter Progress Notes Maria Esther Phan MD - 07/08/2014 9:59 AM CST Dictated NERET CLEANER documented in this encounter Plan of Treatment Not on filedocumented as of this encounter Visit Diagnoses Diagnosis Paralysis agitans (HRC) - Primary Paralysis agitans documented in this encounter Care Teams Siebel Consultant Relationship Specialty Start Date End Date Lurdes Thomas MD PCP - General 06/18/14 12/11/19 documented as of this encounter
--- OUTSIDE RECORDS SUMMARY | 2022-01-25 10:30 | XMS_ITS | Encounter Summary ---
:1955 Author Organization [facility] Address [address], [place] [address] Care Team Providers Name Role Phone No Primary/Referring, Phy Primary Care Provider Unavailable Reason for Visit Reason Comments Patient Calling Back Encounter Details Date Type Department Care Team Description 04/15/[address] [facility] Shawnee Hilario, RN Patient Calling Back [address] [place]ina [place], [place] [address] Social History Tobacco Use [...] TAC. States he spoke with Doris at [facility] and has an appointment set up 05/26/14. Do not see this appointment in our system at [facility]. [facility]. Shawnee Hilario RN - 04/15/2014 4:22 PM CST Patient left a message on the DBS nurse line stating he was returning a call about scheduling DBS. We had called him a month or so ago to tell him about our process and our understanding was he wanted to wait until After May because of insurance reasons. It may have been the java front end web developer calling himto schedule. Left him a message asking him to speak to Gricelda. S AND SERVICE CHANGE LEADER documented in this encounter Plan of Treatment Not on filedocumented as of this encounter Visit Diagnoses Not on filedocumented in this encounter Care Teams Tin Roofer Relationship Specialty Start Date End Date No Primary/Referring, Phy PCP - General 01/22/14 documented as of this encounter
--- OUTSIDE RECORDS SUMMARY | 2022-01-25 10:30 | XMS_ITS | Encounter Summary ---
:1955 Author Organization [facility] Address [address] [place] [address] Care Team Providers Name Role Phone No Primary/Referring, Phy Primary Care Provider Unavailable Reason for Visit Reason Comments Appt. Scheduled Encounter Details Date Type Department Care Team Description 05/20/2014 Telephone [facility] Sheri Pearson RN Appt. Scheduled [address] [place], [place] [address] Social History Tobacco Use [...] scheduled for on Monday. It is at [facility] at the [place] location. ICAL SOCIOLOGIST documented in this encounter Plan of Treatment Not on filedocumented as of this encounter Visit Diagnoses Not on filedocumented in this encounter Care Teams Washing Machine Repairer Relationship Specialty Start Date End Date No Primary/Referring, Lupilloy PCP - General 01/22/14 documented as of this encounter
--- OUTSIDE RECORDS SUMMARY | 2022-01-25 10:30 | XMS_ITS | Encounter Summary ---
:1955 Author Organization [facility] Address [address] [address] Care Team Providers Name Role Phone No Primary/Referring, Phmyah Primary Care Provider Unavailable Encounter Details Date Type Department Care Team Description 01/30/2014 Orders Only [facility] Kiara Cristina, Vitamin D deficiency [address] Ross MD (Primary [place]x) [place] [phone] [address] [phone] [place] [address] (Wo rk) Social History Tobacco Use [...] deficiency documented in this encounter Care Teams Shellfish Dredge Operator Relationship Specialty Start Date End Date No Primary/Referring, Lilliana PCP - General 01/22/14 documented as of this encounter
--- OUTSIDE RECORDS SUMMARY | 2022-01-25 10:30 | XMS_ITS | Encounter Summary ---
:1955 Author Organization [employer] Address [address] [place] [address] Care Team Providers Name Role Phone Lurdes Thomas MD Primary Care Provider Reason for Referral Specialty Diagnoses / Procedures Referred By Contact Refer red To Contact Maria Esther Phan MD [address] [place], [place] [address] Referral ID Status Reason Start Date Expiration Date Visits Requ ested Visits Authorized H FOOD MANAGER Reason for Visit Reason Comments Social Service Encounter Details Date Type Department Care Team Description 06/18/2014 Initial Consult [facility] Fabi Beverly Paralys is [facility] Services RODEO CLOWN [address] corina Lamas [place], [place] [address] Social History Tobacco Use [...] Deep Brain Stimulation (DBS) Assessment at the [facility]. Assessment: Current Social Situation Pt and his live in their home in [place]. The pt does have any children, but his has two. The pt is close to his step-daughter and her family. 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 He has been open about [...] have time to discuss during this session. Crinkling Machine Operator provided contact information and explained availability to answer any further questions or concerns. Session was 50 minutes long. H FOOD MANAGER documented in this encounter Plan of Treatment Scheduled Referrals Name Type Priority Associated Diagnoses Order S chedule [facility] Referral Routine Paralysis agitans (HRC) Ordered: 06/20/2014, CONSULT (AMB) Expires: 06/20 documented as of this encounter Visit Diagnoses Diagnosis Paralysis agitans (HRC) Paralysis agitans documented in this encounter Care Teams Collection Analyst Relationship Specialty Start Date End Date Lurdes Thomas MD PCP - General 06/18/14 12/11/19 documented as of this encounter
--- OUTSIDE RECORDS SUMMARY | 2022-01-25 10:30 | XMS_ITS | Encounter Summary ---
:1955 Author Organization [facility] Address [address] [address] Care Team Providers Name Role Phone No Primary/Referring, Phy Primary Care Provider Unavailable Reason for Visit Reason Comments Questions Encounter Details Date Type Department Care Team Description 06/06/2014 Telephone [facility] Doris Arauz, RN Questions [address] cor[address] [place], [place] [address] Social History Tobacco Use [...] Andrew called asking for number of Medtronic Diesel Engine Fitter. Emailed our reps and Lyric stated it was okay to give him her number: [phone] Called Andrew and gave him her number. MEL CANDY MAKER documented in this encounter Plan of Treatment Not on filedocumented as of this encounter Visit Diagnoses Not on filedocumented in this encounter Care Teams Service Clerk Relationship Specialty Start Date End Date No Primary/Referring, Lupilloy PCP - General 01/22/14 documented as of this encounter
--- OUTSIDE RECORDS SUMMARY | 2022-01-25 10:30 | XMS_ITS | Encounter Summary ---
:1955 Author Organization [employer] Address [address] [address] Care Team Providers Name Role Phone Lurdes Thomas MD Primary Care Provider Reason for Visit Reason Comments Other Encounter Details Date Type Department Care Team Description 07/08/2014 Nursing Visit [facility] Doris Arauz, PD (Parkinson's [address] RN disease) ( Primary Dx) [place] [address] Social History Tobacco Use Types [...] Dr. Kp Phan. MD Doris Arauz, RN STIGATIVE AGENT documented in this encounter Plan of Treatment Not on filedocumented as of this encounter Visit Diagnoses Diagnosis PD (Parkinson's disease) (HRC) - Primary Paralysis agitans documented in this encounter Care Teams Composing Machine Operator Relationship Specialty Start Date End Date Lurdes Thomas MD PCP - General 06/18/14 12/11/19 documented as of this encounter
--- OUTSIDE RECORDS SUMMARY | 2022-01-25 10:30 | XMS_ITS | Encounter Summary ---
:1955 Author Organization [facility] Address [address], [place] [address] Care Team Providers Name Role Phone Lurdes Thomas MD Primary Care Provider Reason for Visit Reason Comments Questions Encounter Details Date Type Department Care Team Description 07/09/2014 Telephone [facility] Sheri Pearson, RN Questions [address] [place], [place] [address] Social History Tobacco Use [...] he will hear from them to schedule. R CAR ATTENDANT documented in this encounter Plan of Treatment Not on filedocumented as of this encounter Visit Diagnoses Not on filedocumented in this encounter Care Teams Correctional Program Specialist Relationship Specialty Start Date End Date Lurdes Thomas MD PCP - General 06/18/14 12/11/19 documented as of this encounter
--- OUTSIDE RECORDS SUMMARY | 2022-01-25 10:30 | XMS_ITS | Encounter Summary ---
:1955 Author Organization [facility] Address [address] [address] Care Team Providers Name Role Phone Lurdes Thomas MD Primary Care Provider Encounter Details Date Type Department Care Team Description 09/17/2014 Notes/Orders [facility] The Paige Clifford, OCEANOGRAPHY PROFESSOR [address] [place], [place] [address] [place] [address] (Wo rk) Social History Tobacco [...] on filedocumented in this encounter Care Teams Pumping Station Engineer Relationship Specialty Start Date End Date Lurdes Thomas MD PCP - General 06/18/14 12/11/19 documented as of this encounter
--- OUTSIDE RECORDS SUMMARY | 2022-01-25 10:30 | XMS_ITS | Encounter Summary ---
:1955 Author Organization [employer] Address [address], [place] [address] Care Team Providers Name Role Phone Lurdes Thomas MD Primary Care Provider Reason for Referral Specialty Diagnoses / Procedures Referred By Contact Refer red To Contact Maria Esther Phan MD [address] [place], [place] [address] Referral ID Status Reason Start Date Expiration Date Visits Requ ested Visits Authorized PARTS AND SERVICE DIRECTOR Reason for Visit Reason Comments Balance/gait Dysfunction Encounter Details Date Type Department Care Team Description 06/18/2014 Initial Consult [facility] Jordana Ham (Primary Dx); Therapy M, PT Abnormality of gait; [address] [place] [id number] Social History Tobacco Use Types Packs/Day Years [...] 1955 Physical Therapy Parkinson Evaluation/Plan of Care [facility] Initial Certification Period: 06/18/2014 to 09/16/14 Referring Provider: Dr. Maria Esther Phan Visit Diagnosis/ICD: Diagnosis (ICD9) ICD-9-CM 1. Paralysis agitans (HCC) 332.0 2. Abnormality of gait 781.2 3. Risk for falls V15.88 Precautions: No precautions Onset/Referral Date: 06/18/2014 Reason for Referral: -Pre-Deep Brain Stimulation (Physical Therapist, Occupational Therapist, Speech and Language Pathologist, Oracle Bpm Developer, Registered Nurse). Orders: Evaluate and treat. [facility] [place] Services: None. Exacerbation Date: 05/22/2014 Last Referring [...] to residence: Stairs to enter. -Living location: [facility]. -Living environment: Urban-mostly paved areas to [...] in winter. Communication: Clear. Low volume. 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 Currently working [...] a distance away from clinic and works timers inspector, but is agreeable to come back for [...] 90 days. Total Treatment: 60 minutes The inclusion intern is completed by the therapist and the [...] Name Type Priority Associated Diagnoses Order [facility] Referral Routine Paralysis agitans (HRC) Ordered: 06/20/2014, Expires: 2014 documented as of this encounter Visit Diagnoses Diagnosis Paralysis agitans (HRC) - Primary Paralysis agitans Abnormality of gait Risk for falls Personal history of fall documented in this encounter Care Teams Hat Copyist Relationship Specialty Start Date End Date Lurdes Thomas MD PCP - General 06/18/14 12/11/19 documented as of this encounter
--- OUTSIDE RECORDS SUMMARY | 2022-01-25 10:30 | XMS_ITS | Encounter Summary ---
:1955 Author Organization [employer] Address [address] [address] Care Team Providers Name Role Phone No Primary/Referring, Phy Primary Care Provider Unavailable Reason for Visit Reason Comments Questions Encounter Details Date Type Department Care Team Description 05/05/2014 Telephone [facility] Fabi Ray, RN Questions [address] corina Lamas [place], [place] [address] Social History Tobacco Use [...] Phan. He sees Dr. Phan now in [place] due to copay. Explained that best if results appointment can be at [facility] he can meet with the DBS nurse after. Also explained will need to see the DBS nurse at [facility] post DBS if approved for surgery. Good comprehension of plan. Transferred to front line to set up results appointment with Dr. Phan and to review pre-DBS appointments. Post-note: Confirmed with front line that 05/26/13 appt is for MRI and neuropsych with Dr. Ramirez. CTOR SOCIAL documented in this encounter Plan of Treatment Not on filedocumented as of this encounter Visit Diagnoses Not on filedocumented in this encounter Care Teams Book Jogger Relationship Specialty Start Date End Date No Primary/Referring, Phy PCP - General 01/22/14 documented as of this encounter
--- OUTSIDE RECORDS SUMMARY | 2022-01-25 10:30 | XMS_ITS | Encounter Summary ---
:1955 Author Organization [facility] Address [address], [place] [address] Care Team Providers Name Role Phone Lurdes Thomas MD Primary Care Provider Encounter Details Date Type Department Care Team Description 06/18/2014 Notes/Orders [facility] Doris Arauz, Paralysis agitans [address] RN (Primary D x) [place] [address] Social History Tobacco Use Types [...] had . Older the 90 days. Thanks. UCTION MAINTENANCE MECHANIC documented in this encounter Plan of Treatment Not on filedocumented as of this encounter Visit Diagnoses Diagnosis Paralysis agitans (HRC) - Primary Paralysis agitans documented in this encounter Care Teams General Assembler Installer Relationship Specialty Start Date End Date Lurdes Thomas MD PCP - General 06/18/14 12/11/19 documented as of this encounter
--- OUTSIDE RECORDS SUMMARY | 2022-01-25 10:30 | XMS_ITS | Encounter Summary ---
:1955 Author Organization [facility] Address [address], [place] [address] Care Team Providers Name Role Phone Lurdes Thomas MD Primary Care Provider Encounter Details Date Type Department Care Team Description 08/20/2014 Notes/Orders [place] [facility] Millie Pedraza MD [address] [place], [place] [address] [address]500 [facility] N [address] (Wo rk) Social History Tobacco Use Types [...] on filedocumented in this encounter Care Teams Sanding Machine Tender Automatic Relationship Specialty Start Date End Date Lurdes Thomas MD PCP - General 06/18/14 12/11/19 documented as of this encounter
--- OUTSIDE RECORDS SUMMARY | 2022-01-25 10:30 | XMS_ITS | Encounter Summary ---
:1955 Author Organization [employer] Address [address], [place] [address] Care Team Providers Name Role Phone Lurdes Thomas MD Primary Care Provider Encounter Details Date Type Department Care Team Description 06/25/2014 Notes/Orders [place] [facility] Millie Pedraza MD [address] [place], [place] [address] [address]500 [facility] N [id number] (Wo rk) Social History Tobacco Use Types [...] Phan will meet with him on 07/08/14/ ET STONE INSERTER documented in this encounter Plan of Treatment Not on filedocumented as of this encounter Visit Diagnoses Not on filedocumented in this encounter Care Teams Mud Jack Nozzle Worker Relationship Specialty Start Date End Date Lurdes Thomas MD PCP - General 06/18/14 12/11/19 documented as of this encounter
--- OUTSIDE RECORDS SUMMARY | 2022-01-25 10:30 | XMS_ITS | Encounter Summary ---
:1955 Author Organization [employer] Address [address] [place] [address] Care Team Providers Name Role Phone Lurdes Thomas MD Primary Care Provider Reason for Visit Reason Comments Paperwork Encounter Details Date Type Department Care Team Description 09/15/2014 Telephone [facility] Doris Arauz, RN Paperwork [address] [place], [place] [address] Social History Tobacco Use Types [...] CDT Doris from Dr. Phan office at [facility] called to request ON/OFF results be [...] filedocumented in this encounter Care Teams Family Services Worker Relationship Specialty Start Date End Date Lurdes Thomas MD PCP - General 06/18/14 12/11/19 documented as of this encounter
--- OUTSIDE RECORDS SUMMARY | 2022-01-25 10:30 | XMS_ITS | Encounter Summary ---
:1955 Author Organization [email or web address] Address [address] [place] [address] Care Team Providers Name Role Phone Lurdes Thomas MD Primary Care Provider Reason for Referral Specialty Diagnoses / Procedures Referred By Contact Refer red To Contact Maria Esther Phan MD [address] [place], [place] [address] Referral ID Status Reason Start Date Expiration Date Visits Requ ested Visits Authorized OPERATOR AUTOMATIC Reason for Visit Reason Comments CONSULT Encounter Details Date Type Department Care Team Description 06/18/2014 Nursing Visit [place] [facility] Doris Arauz, PD (Parkinson's disease) (Pr imary Dx); [address] [place], [place] [id number] Social History Tobacco Use Types Packs/Day Years Used Date Smoking Tobacco: Never Smokeless Tobacco: Never Alcohol Use Standard Drinks/Week Comments Yes 0 (1 standard drink = 0.6 oz pure alcoho l) Sex Assigned at Date Recorded Not on file documented as of this encounter Progress Notes Doris Aaruz RN - 06/18/2014 5:16 PM CST Andrew came to [place] for DBS TAC with his . States [...] CR: 900mg MoCA: Midi: 0 Vargas: 15 OPERATOR AUTOMATIC documented in this encounter Plan of Treatment Scheduled Referrals Name Type Priority Associated Diagnoses Order S angélica [facility] NURSING Referral Routine Paralysis agitans (HRC) Ordered: 06/20/2014, CONSULT (AMB) Expires: 06/20 documented as of this encounter Visit Diagnoses Diagnosis PD (Parkinson's disease) (HRC) - Primary Paralysis agitans Paralysis agitans (HRC) Paralysis agitans documented in this encounter Care Teams Lead Application Architect Relationship Specialty Start Date End Date Lurdes Thomas MD PCP - General 06/18/14 12/11/19 documented as of this encounter
--- OUTSIDE RECORDS SUMMARY | 2022-01-25 10:30 | XMS_ITS | Encounter Summary ---
:1955 Author Organization [employer] Address [address], [place] [address] Care Team Providers Name Role Phone Lurdes Thomas MD Primary Care Provider Encounter Details Date Type Department Care Team Description 06/18/2014 Initial Consult Usha Mcpherson Para lysis agitans Services (Primary Dx) [address] [place] [address] Social History Tobacco Use Types [...] Living Environment Lives with . Living Location: [place], [place] Leisure Activities: Not discussed during session. [...] agitans documented in this encounter Care Teams Instantizer Operator Relationship Specialty Start Date End Date Lurdes Thomas MD PCP - General 06/18/14 12/11/19 documented as of this encounter
--- OUTSIDE RECORDS SUMMARY | 2022-01-25 10:30 | XMS_ITS | Encounter Summary ---
:1955 Author Organization [facility] Address [address] [place] [address] Care Team Providers Name Role Phone Lurdes Thomas MD Primary Care Provider Reason for Referral Specialty Diagnoses / Procedures Referred By Contact Refer red To Contact Maria Esther Phan MD [address] [place], [place] [address] Referral ID Status Reason Start Date Expiration Date Visits Requ ested Visits Authorized T ATTENDANT Reason for Visit Reason Comments Adl Problem Encounter Details Date Type Department Care Team Description 06/18/2014 Initial Consult Angela Moore (Primary Dx); Occupational Therapy Tylor Bates OTR/L Other ill-defined conditions(799.89) [address] [place] [id number] Social History Tobacco Use Types Packs/Day Years Used Date Smoking Tobacco: Never Smokeless Tobacco: Never Alcohol Use Standard Drinks/Week Comments Yes 0 (1 standard drink = 0.6 oz pure alcoho l) Sex Assigned at Date Recorded Not on file documented as of this encounter Progress Notes Tylor Marr OTR/Stefan - 06/18/2014 4:45 PM CST Encounter Date: 06/18/2014 Pt. : 1955 [facility] Services Occupational Therapy - Evaluation/Plan [...] program. Completion of Pre DBS assessment and customer service receptionist of recommendations. Past Medical History: Past medical history, medication, and allergies were reviewed in the electronic medical record. Pertinent to therapy: Restless leg syndrome. . Previous Occupational Therapy: Unknown. Pain: Location: Back pain in morning. Education: High school. 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 Living Location: [facility]. Driving: Yes. Community Mobility: Assistive device [...] limits. -Right upper extremity: within normal limits. -Jewellery Designer: Left - 99 lbs =75%; Right - [...] equipment for increased handwriting legibility using: Wide bioinformatics computer scientist pen. Aim big. Write slower. Response to [...] or Learning: Distance from clinic. Working time checker. Prognosis: Excellent for established goals. PLAN: Evaluation [...] exercise program. Procedures: Occupation Therapy Evaluation (CPT 20552): 30 minutes ADL/Self management (CPT 15128): 30 minutes Total Treatment Time: 60 minutes. The thermal engineer is completed by the therapist and the referring clinician's electronic signature certifies medical necessity for the plan above. Tylor Marr OTR/L Lic#[id number] documented in this encounter Plan of Treatment Scheduled Referrals Name Type Priority Associated Diagnoses Order [facility] Occupational Therapy Referral Routine Paralysis agitans (H RC) Ordered: 06/20/2014, Expires: 2014 documented as of this encounter Visit Diagnoses Diagnosis Paralysis agitans (HRC) - Primary Paralysis agitans Other ill-defined conditions(799.89) Other ill-defined conditions documented in this encounter Care Teams Marine Steam Fitter Helper Relationship Specialty Start Date End Date Lurdes Thomas MD PCP - General 06/18/14 12/11/19 documented as of this encounter
--- OUTSIDE RECORDS SUMMARY | 2022-01-25 10:30 | XMS_ITS | Encounter Summary ---
:1955 Author Organization [employer] Address [address], [place] [address] Care Team Providers Name Role Phone Lurdes Thomas MD Primary Care Provider Encounter Details Date Type Department Care Team Description 09/23/2014 Notes/Orders [place] [facility] Jordana Ham, PT [address] [place] [address] [place] [address] [phone] (Wo rk) Social History Tobacco Use Types Packs/Day Years Used Date Smoking Tobacco: Never Smokeless Tobacco: Never Alcohol Use Standard Drinks/Week Comments Yes 0 (1 standard drink = 0.6 oz pure alcoho l) Sex Assigned at Date Recorded Not on file documented as of this encounter Discharge Summaries Jordana Ham, PT - 09/23/2014 8:52 AM CDT Encounter Date: 09/23/2014 Pt : 1955 [facility] Physical Therapy Discharge Summary Patient was evaluated [...] on filedocumented in this encounter Care Teams Drafter Topographical Relationship Specialty Start Date End Date Lurdes Thomas MD PCP - General 06/18/14 12/11/19 documented as of this encounter
--- OUTSIDE RECORDS SUMMARY | 2022-01-25 10:30 | XMS_ITS | Encounter Summary ---
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
--- OUTSIDE RECORDS SUMMARY | 2022-01-25 10:31 | XMS_ITS | Encounter Summary ---
:1955 Author Organization [employer] Address [address] [place] [address] Care Team Providers Name Role Phone No Primary/Referring, Phy Primary Care Provider Unavailable Reason for Visit Reason Comments Establish Care MEDICATION CHECK Encounter Details Date Type Department Care Team Description 01/28/2014 Office Visit Kiara Zepeda Hyperlipide cierra (Primary Dx); Rober Aviles MD Parkinson's disease; [address] [facility] [address] [place] [address] Screening for diabetes mellitus; [place] [address] [place] [address] Screening for prostate cancer; [phone] Special screeni ng for malignant neoplasms, colon; [...] go directly to the clinic???s lab to leaf size picker your test kit. There will be [...] COLLECTION KIT PREP (01/28/2014 9:30 AM CDT) [facility] gist Method Time Signature FIT Kit Prep Collection Kit [facility] Given to LABORATORIES Patient Specimen Anatomical Collection Method Collection Time Receive d Time (Source) Location / / Volume Laterality 01/28/2014 9:30 AM 4 9:31 CDT AM CDT Narrative [facility] - 02/04/2014 8:08 AM C DT Performed at [facility], [facility], [place] [address] Kiara Cristina MD LAB_1 Performing Organization Address City/State/ZIP Code Phon e Number [facility] [phone] PROSTATIC SPECIFIC ANTIGEN(SCREEN) (V76.44) (01/28/2014 9:30 AM CDT) P athologist Signature Prostatic Spec 0.97 0.00 - [facility] Ag 4.00 ng/ml LABORATORIES Specimen Anatomical Collection Method Collection Time Receive d Time (Source) Location / / Volume Laterality 01/28/2014 9:30 AM 4 9:31 CDT AM CDT Narrative [facility] - 01/28/2014 7:22 PM C DT Performed at [facility], [address] [place] [id number] Kiara Cristina MD LAB_1 Performing Organization Address City/[facility]/ZIP Code Phon e Number [facility] [phone] (ABNORMAL) VITAMIN D 25-HYDROXY, TOTAL (V77.99) (01/28/2014 9:30 AM CDT) [facility] gist Method Time Signature Vitamin 14.8 [...] 01/28/2014 9:27 PM C DT Performed at [facility] , [address] [place] [address] Kiara Cristina MD LAB_1 Performing Organization Address City/State/ZIP Code Phon e Number [facility] [phone] LIVER PANEL(HEPATIC FUNCTION PANEL) (01/28/2014 9:30 AM CDT) [facility] Method Time Signature Alkaline 89 38 [...] C DT Performed at [facility], [address] [place] [address] ??[id number] Kiara Cristina MD LAB_1 Performing Organization Address City/[facility] Phon e Number [facility] [phone] HGB A1C (01/28/2014 9:30 AM CDT) athologist Signature Hgb A1c 5.9 4.3 - 6.1 % [facility] Specimen Anatomical Collection Method Collection Time Receive d Time (Source) Location / / Volume Laterality 01/28/2014 9:30 AM 4 9:31 CDT AM CDT Narrative [facility] - 01/29/2014 9:55 AM C DT Performed at [facility], [address] [place] [address] ??[address] Kiara Cristina MD LAB_1 Performing Organization Address City/[facility] Phon e Number [facility] [phone] (ABNORMAL) LIPID PANEL AND DIRECT LDL(IF NEEDED) (01/28/2014 9:30 AM CDT) Component Value Ref Test Analysis Performed At [facility] Range Method Time Signature Hours Fasting [...] C DT Performed at [facility], [address] [place] [address] Kiara Cristina MD LAB_1 Performing Organization Address City/State/ZIP Code Phon e Number [facility] [phone] documented in this encounter Visit Diagnoses Diagnosis Hyperlipidemia (HRC) - Primary Other and unspecified hyperlipidemia Parkinson's disease (HRC) Screening for diabetes mellitus Screening for prostate cancer Special screening for malignant neoplasm of prostate Special screening for malignant neoplasm s, colon Preventative health care Routine general medical examination at a health care facility documented in this encounter Care Teams Adult Ministries Director Relationship Specialty Start Date End Date No Primary/Referring, Phy PCP - General 01/22/14 documented as of this encounter
--- OUTSIDE RECORDS SUMMARY | 2022-01-25 10:31 | XMS_ITS | Encounter Summary ---
:1955 Author Organization [facility] Address [address] [place] [address] Care Team Providers Name Role Phone Unavailable Primary Care Provider Unavailable Encounter Details Date Type Department Care Team Description 05/06/2008 Hospital Encounter CONV METH PKDNela Arellano, RN [address] [place], [place] [address] Social History Tobacco Use Types Packs/Day Years [...]
--- OUTSIDE RECORDS SUMMARY | 2022-01-25 10:31 | XMS_ITS | Encounter Summary ---
:1955 Author Organization [facility] Address [address] [place] [address] Care Team Providers Name Role Phone Unavailable Primary Care Provider Unavailable Encounter Details Date Type Department Care Team Description 05/11/2006 PN Conversion Only AIRPORT CONVERSION [address] [place] [address] Social History Tobacco Use Types Packs/Day Years Used Date Smoking Tobacco: Never Assessed Sex Assigned at Date Recorded Not on file documented as of this encounter Plan of Treatment Not on filedocumented as of this encounter Visit Diagnoses Not on filedocumented in this encounter
--- OUTSIDE RECORDS SUMMARY | 2022-01-25 10:31 | XMS_ITS | Encounter Summary ---
:1955 Author Organization [facility] Address [address], [place] [address] Care Team Providers Name Role Phone Unavailable Primary Care Provider Unavailable Encounter Details Date Type Department Care Team Description 07/31/2007 Hospital Encounter CONV METH PKDSV Nela Soriano, RN [address], [place] [address] Social History Tobacco Use Types Packs/Day Years [...] Therapist, Occupational Therapist, Speech and Language Pathologist, Frame Repairer, Registered Nurse). Orders: Evaluate and treat. Exacerbation Date: 08/21/2007 Initial Certification Dates: 08/23/2007 to 09/21/07 SUBJECTIVE: Mobility Limitations Reported: Denies limitations. Balance/Falls in past 6 months: None reported. Motor Fluctuations: No. Pain Screen: No pain. Past Medical History: Unremarkable per patient report. Support System: Lives with primary managed care analyst. Living Situation: Private home, more than 1 level. [facility]. Living Environment: Urban-mostly paved areas to ambulate. Community Mobilities: Driving-unrestricted. Frequency of Outings: Leaves home on a daily basis. Leisure Activities: Plays guitar. Formal Exercises: Walking-treadmill or indoors. Weight lifting. Yoga. Exercise Frequency: Several times per week. Communication: Clear. 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 Travels several times a year. Patient's [...] -Exercise handouts. Procedures: Physical Therapy Evaluation (CPT 89423) Therapeutic Exercise (CPT 19558) 30 minutes TOTAL TREATMENT TIME: 60 minutes. Electronically signed by: Sandrine Martinez, PT, 9748, 08/23/2007 *SH~REHAB~PTPARKEVA~ Shorthand Note completed on: 08/23/2007 3:15 PM documented in this encounter Plan of Treatment Not on filedocumented as of this encounter Visit Diagnoses Not on filedocumented in this encounter
--- OUTSIDE RECORDS SUMMARY | 2022-01-25 10:31 | XMS_ITS | Encounter Summary ---
:1955 Author Organization [facility] Address [address] [place] [address] Care Team Providers Name Role Phone Unavailable Primary Care Provider Unavailable Encounter Details Date Type Department Care Team Description 05/04/2009 PN Conversion Only CORPORATE TREASURY ANALYST [address] [place] [address] Social History Tobacco Use Types Packs/Day Years Used Date Smoking Tobacco: Never Assessed Sex Assigned at Date Recorded Not on file documented as of this encounter Plan of Treatment Not on filedocumented as of this encounter Visit Diagnoses Not on filedocumented in this encounter
--- OUTSIDE RECORDS SUMMARY | 2022-01-25 10:31 | XMS_ITS | Encounter Summary ---
:1955 Author Organization [facility] Address [address], [place] [address] Care Team Providers Name Role Phone Unavailable Primary Care Provider Unavailable Encounter Details Date Type Department Care Team Description 09/22/2010 PN Conversion Only Alexey Tolentino, [facility] [address] [address] [address] [facility] [place] [address] (Wo rk) Social History Tobacco Use Types Packs/Day Years Used Date Smoking Tobacco: Never Assessed Sex Assigned at Date Recorded Not on file documented as of this encounter Plan of Treatment Not on filedocumented as of this encounter Visit Diagnoses Not on filedocumented in this encounter
--- OUTSIDE RECORDS SUMMARY | 2022-01-25 10:31 | XMS_ITS | Encounter Summary ---
:1955 Author Organization [facility] Address [address] [place] [address] Care Team Providers Name Role Phone Unavailable Primary Care Provider Unavailable Encounter Details Date Type Department Care Team Description 05/11/2006 Office Visit [place] Charanjit Webster M D [facility] [address] [place] [address] Social History Tobacco Use Types Packs/Day Years Used Date Smoking Tobacco: Never Assessed Sex Assigned at Date Recorded Not on file documented as of this encounter Plan of Treatment Not on filedocumented as of this encounter Visit Diagnoses Not on filedocumented in this encounter
--- OUTSIDE RECORDS SUMMARY | 2022-01-25 10:31 | XMS_ITS | Encounter Summary ---
:1955 Author Organization [facility] Address [address] [place] [address] Care Team Providers Name Role Phone Unavailable Primary Care Provider Unavailable Encounter Details Date Type Department Care Team Description 07/30/2007 PN Conversion Only SABIANIST CONVERSION Social History Tobacco Use Types Packs/Day Years Used Date Smoking Tobacco: Never Assessed Sex Assigned at Date Recorded Not on file documented as of this encounter Plan of Treatment Not on filedocumented as of this encounter Visit Diagnoses Not on filedocumented in this encounter
--- OUTSIDE RECORDS SUMMARY | 2022-01-25 10:31 | XMS_ITS | Encounter Summary ---
:1955 Author Organization [facility] Address [address] [place] [address] Care Team Providers Name Role Phone Unavailable Primary Care Provider Unavailable Encounter Details Date Type Department Care Team Description 05/05/2009 Nursing Visit [facility] [place] [address] [place] [address] Social History Tobacco Use Types Packs/Day Years Used Date Smoking Tobacco: Never Assessed Sex Assigned at Date Recorded Not on file documented as of this encounter Plan of Treatment Not on filedocumented as of this encounter Visit Diagnoses Not on filedocumented in this encounter
--- OUTSIDE RECORDS SUMMARY | 2022-01-25 10:31 | XMS_ITS | Encounter Summary ---
:1955 Author [facility] Address [address], [place] [address] Care Team Providers Name Role Phone Unavailable Primary Care Provider Unavailable Encounter Details Date Type Department Care Team Description 11/19/2012 Notes/Orders [place] [facility] Katalina Laughlin, PT [address] [place] [address] [place], [place] [phone] (Wo rk) Social History Tobacco Use Types Packs/Day Years Used Date Smoking Tobacco: Never Assessed Sex Assigned at Date Recorded Not on file documented as of this encounter Progress Notes Katalina Laughlin, PT - 11/19/2012 9:58 AM CDT No show for scheduled PT consult appointment this morning. Katalina Laughlin PT, [facility] License # [id number] documented in this encounter Plan of Treatment Not on filedocumented as of this encounter Visit Diagnoses Not on filedocumented in this encounter
--- OUTSIDE RECORDS SUMMARY | 2022-01-25 10:31 | XMS_ITS | Encounter Summary ---
:1955 Author Organization [facility] Address [address] [place] [address] Care Team Providers Name Role Phone Unavailable Primary Care Provider Unavailable Encounter Details Date Type Department Care Team Description 08/23/2007 Therapy CONV METH SP Jasbir Laughlin HANDCREW FOREMAN [address] [facility] Liliam Joshi N [phone] (Wo rk) Social History Tobacco Use Types [...] 0322 Note Time: 08/23/07 0001 Status: Signed Flight Attendant/Inflight Supervisor: Bárbara Laughlin CCC-HANDCREW FOREMAN (Speech and Language Pathologist) [facility] [place] Speech Pathology - Parkinson's Disease Evaluation Primary [...] No. Smoking: No. Education: High school. 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 Marital Status: . Living Arrangement: Lives with spouse. Safety in living environment: Patient feels safe in current living environment. Vulnerable adult assessment = low risk OBJECTIVE Behavioral Characteristics: Alert. Motivated. Cooperative. Tests Administered: [facility] Assessment of Communication in Parkinson's Disease - [...] One time evaluation and treatment only at [facility] [place]. Executive Relations Specialist goals: -Maximize speech and voice for [...] 60 minutes. Electronically signed by: Bárbara Laughlin MA/LAVELL-HANDCREW FOREMAN, 5063, 08/23/2007 *SH~REHAB~SPARKEVAL~ Shorthand Note Completed on: 08/23/2007 1:19 PM documented in this encounter Plan of Treatment Not on filedocumented as of this encounter Visit Diagnoses Not on filedocumented in this encounter
--- OUTSIDE RECORDS SUMMARY | 2022-01-25 10:31 | XMS_ITS | Encounter Summary ---
:1955 [facility] Address [address], [place] [address] Care Team Providers Name Role Phone Unavailable Primary Care Provider Unavailable Encounter Details Date Type Department Care Team Description 08/17/2009 Office Visit [facility] Alexey Alvarez MD [address] [employer] [address] [place] [address] [place] [address] [phone] (Wo rk) Social History Tobacco Use Types [...] signed by Alexey Garcia MD at 08/17/09 4119 Author: Alexey Garcia MD Service: (none) Author Type: Physician Filed: 09/11/102113 Note Time: 08/17/09 0001 Status: Signed Corporate Administrative Assistant: Alexey Garcia MD (Physician) SUBJECTIVE: 54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 He has no side effects. He formerly was with [facility] and his insurance is changed. He has Parkinson's and sees Dr. Phan for its management in [place]. The remainder of the complete ROS [...]
--- OUTSIDE RECORDS SUMMARY | 2022-01-25 10:31 | XMS_ITS | Encounter Summary ---
:1955 Author Organization [facility] Address [address] [place] [address] Care Team Providers Name Role Phone Unavailable Primary Care Provider Unavailable Encounter Details Date Type Department Care Team Description 08/17/2009 PN Conversion Only MARCO CONVERSION Alexey Garcia, [address] [place] [address] [address] [place], [place] [address] (Wo rk) Social History [...] Greater than 150 ng/m L Performed at [facility] [address] [place] [address]10 8 Specimen (Source) Anatomical Collection Method Collection Time Re ceived Time Location / / Volume Laterality 08/17/2009 8:30 AM CDT Alexey Garcia MD LAB_1 Performing Organization Address City/[facility] Code Phon e Number HP CONVERSION Prostatic Specific Antigen (F/U) (08/17/2009 8:30 AM CDT) P athologist Signature Prostate 0.6 0.0 - 4.0 HP CONVERSION Specific ng/mL Antigen Specimen (Source) Anatomical Collection Method Collection Time Re ceived Time Location / / Volume Laterality 08/17/2009 8:30 AM CDT Alexey Garcia MD LAB_1 Performing Organization Address City/[facility]/ZIP Code Phon e Number HP CONVERSION Lipid [...] Alexey Garcia MD LAB_1 Performing Organization Address City/[facility] Code Phon e Number HP CONVERSION (ABNORMAL) GLUCOSE (08/17/2009 8:30 AM CDT) P athologist Signature Lab Glucose 105 (H) 60 - 100 HP CONVERSION mg/dL Specimen (Source) Anatomical Collection Method Collection Time Re ceived Time Location / / Volume Laterality 08/17/2009 8:30 AM CDT Alexey Garcia MD LAB_1 Performing Organization Address [facility] Phon e Number HP CONVERSION ALT (SGPT) (08/17/2009 8:30 AM CDT) [facility] Method Time Signature Alanine 33 4 - 55 HP CONVERSION Aminotransferase U/L Specimen (Source) Anatomical Collection Method Collection Time Re ceived Time Location / / Volume Laterality 08/17/2009 8:30 AM CDT Alexey Garcia MD LAB_1 Performing Organization Address [facility] Phon e Number HP CONVERSION documented in this encounter Visit Diagnoses Not on filedocumented in this encounter
--- OUTSIDE RECORDS SUMMARY | 2022-01-25 10:31 | XMS_ITS | Encounter Summary ---
:1955 Author [facility] Address [address] [place] [address] Care Team Providers Name Role Phone Unavailable Primary Care Provider Unavailable Encounter Details Date Type Department Care Team Description 12/04/2007 Hospital Encounter CONV METH [id number] Nela Soriano, RN [address] [place], [place] [address] Social History Tobacco Use Types Packs/Day Years [...]
--- OUTSIDE RECORDS SUMMARY | 2022-01-25 10:31 | XMS_ITS | Encounter Summary ---
:1955 Author Organization [facility] Address [address] [place] [address] Care Team Providers Name Role Phone Unavailable Primary Care Provider Unavailable Encounter Details Date Type Department Care Team Description 07/22/2008 PN Conversion Only AIRPORT CONVERSION [address] [place] [address] Social History Tobacco Use Types Packs/Day Years Used Date Smoking Tobacco: Never Assessed Sex Assigned at Date Recorded Not on file documented as of this encounter Plan of Treatment Not on filedocumented as of this encounter Visit Diagnoses Not on filedocumented in this encounter
--- OUTSIDE RECORDS SUMMARY | 2022-01-25 10:31 | XMS_ITS | Encounter Summary ---
:1955 Author [facility] Address [address] [place] [address] Care Team Providers Name Role Phone Unavailable Primary Care Provider Unavailable Encounter Details Date Type Department Care Team Description 07/22/2008 [facility]ational Logan Croft, Medicine [address] [place] [address] [place] [address] Social History Tobacco Use Types Packs/Day Years Used Date Smoking Tobacco: Never Assessed Sex Assigned at Date Recorded Not on file documented as of this encounter Plan of Treatment Not on filedocumented as of this encounter Visit Diagnoses Not on filedocumented in this encounter
[2022-01-25 12:42] LABS: Chloride* 95 mmol/L (96-114); Potassium* 4.1 mmol/L (3.6-5.1); Sodium* 132 mmol/L (135-149)
[2022-01-25 12:44] LABS: Creatinine* 0.7 mg/dL (0.5-1.5); Estimated Glomerular Filt Rate 102 ml/min
[2022-01-25 12:45] LABS: Blood Urea Nitrogen* 21 mg/dL (7-30); Carbon Dioxide* 28 mmol/L (20-32); Glucose* 108 mg/dL (60-115)
[2022-01-25 12:46] LABS: Calcium* 8.4 mg/dL (8.4-10.6)
== END 2022-01-25 10:20 | disposition home or self-care (01) ==
LOC: NFLDREF 10:19
PROVIDERS: PCP Family Medicine; Visit Provider Family Medicine
DX: Z98.890 Other specified postprocedural states (principal); R53.83 Other fatigue; R53.1 Weakness
CPT/HCPCS: 80048

== ENCOUNTER 2022-01-28 10:23 | Outpatient (CLI) | payer BC, SELFPAY ==
--- OUTSIDE RECORDS SUMMARY | 2022-01-28 10:56 | XMS_ITS | Encounter Summary ---
:1955 Author Organization [facility] Address [address] [place] [address]. [place] [address] Care Team Providers Name Role Phone Samantha Stauffer MD Primary Care Provider [phone] Encounter Details Date Type Department Care [...] on filedocumented in this encounter Care Teams Fleet Sales Manager Relationship Specialty Start Date End Date Samantha Stauffer MD PCP - General Family Medicine 12/17/[address] [address] documented as of this encounter
--- OUTSIDE RECORDS SUMMARY | 2022-01-28 10:56 | XMS_ITS | Clinical Summary ---
:1955 Author Organization [place] Address [address] [facility] [place] [address] Care Team Providers Name Role Phone Samantha Stauffer MD Primary Care Provider [phone] Allergies No known active allergies Medications [...] Comments Lipids Father 1 Cardiovascular Father 2 MA, s/p CABG in mid- late 60's Diabetes Father 2 Neurologic Disorder Father 2 Parkinson's Cardiovascular Mother CVA x4 and MA, s/p C ABG in mid-late 60's Relation [...] this topic Medical Devices Implanted Type Area Furniture Arranger Device Shelf Model / Identifier Expiration Date Ser ial / Lot Fiducials Skull IMAGE GUIDED 06/12/2017 [id number] / Implanted: Qty: 5 on 09/09/2014 by Demetrio gale, Gonzalez Snider MD at [facility] NEUROLO / [id number] Description: 5 fiducials used - opened 1 box for charging (contains 6 in box). Done in the clinic - reported to us by Alliso n Gianna Neurostimulator [employer] [id number] Right: Chest [employer]-NEURO 12/17/2015 [id number] / Implanted: Qty: 1 on 09/16/2014 by Demetrio gale, Gonzalez Snider MD at [facility] [id number] / Insurance Payer Benefit Plan / Subscriber ID Effective Dates Phone Addre ss Type Group BCBS BCBS OUT OF [id number] 2014-Present [phone] [address] [address] [place] [address] [address] (Home) venetie ira [phone] [place] [phone] (Work) Advance Directives For more information, please contact: [phone] Latest Code Status on File Code Status Date Activated Date Inactivated Comments Full Code 09/10/2014 9:18 AM Care Teams Plastics Fabricator And Assembler Relationship Specialty Start Date End Date Samantha Stauffer MD PCP - General Family Medicine 12/17/20 [facility] [address] [place] [address]
--- OUTSIDE RECORDS SUMMARY | 2022-01-28 10:56 | XMS_ITS | Encounter Summary ---
:1955 Author Organization [facility] Address [address] [place] [address]. [place] [address] Care Team Providers Name Role Phone Lurdes Thomas MD Primary Care Provider [phone] Encounter Details Date Type Department Care Team Description 08/08/2020 [facility] [address] [place] [address] Social History Tobacco Use Types Packs/Day [...] on filedocumented in this encounter Care Teams 3D Artist Relationship Specialty Start Date End Date Lurdes Thomas MD PCP - General Internal Medicine 06/11/14 12/16/20 documented as of this encounter
--- OUTSIDE RECORDS SUMMARY | 2022-01-28 10:56 | XMS_ITS | Encounter Summary ---
:1955 Author Organization [place] Address [address] [place] [address]. [place] [address] Care Team Providers Name Role Phone Lurdes Thomas MD Primary Care Provider Samantha Stauffer MD Primary Care Provider [phone] Encounter Details Date Type Department Care [...] filedocumented in this encounter Care Teams Emergency Room Rn Relationship Specialty Start Date End Date Lurdes Thomas MD PCP - General Internal Medicine 06/11/14 12/16/20 Samantha Stauffer MD PCP - General Family Medicine 12/17/[address] [address] documented as of this encounter
--- OUTSIDE RECORDS SUMMARY | 2022-01-28 10:56 | XMS_ITS | Encounter Summary ---
:1955 Author Organization [facility] Address [address] [place] [address]. [place] [address] Care Team Providers Name Role Phone Lurdes Thomas MD Primary Care Provider Samantha Stauffer MD Primary Care Provider [phone] Encounter Details Date Type Department Care [...] on filedocumented in this encounter Care Teams Complex Case Manager Relationship Specialty Start Date End Date Lurdes Thomas MD PCP - General Internal Medicine 06/11/14 12/16/20 Samantha Stauffer MD PCP - General Family Medicine 12/17/[address] [address] documented as of this encounter
--- OUTSIDE RECORDS SUMMARY | 2022-01-28 10:56 | XMS_ITS | Clinical Summary ---
:1955 Author Organization [employer] [facility] [place] [address] Care Team Providers Name Role Phone Maria Esther Phan MD Unavailable Shannon Avery MD Unavailable Min, Charanjit Holt MD Unavailable Samantha Stauffer MD Primary Care Provider [phone] Allergies No known active allergies Medications [...] oldest Diabetes Father Heart Disease Father CAD, [place] age 68-6 9, CABG Hyperlipidemia Father Heart Disease Mother CAD, [place] age 70 Hyperlipidemia Mother Stroke Mother Other [...] Organization Address City/State/ZIP Code Phon e Number [facility] [address] [place] [address] LABORATORY-CENTRAL 2000 LABORATORY PATH TISSUE EXAM (01/10/2022 8:45 AM CDT) Component Value Ref Test Analysis Performed At [facility] Range Method Time Signature Case Report Pathology Report ?Case: [id number] ? 01/11/2022 CATIE Authorizing Provider: ??Kelli Johnson MD ?Collected: ? 01/10/2022 0845 ? 1:20 PM HEALTH Ordering Location: ? [facility] ?Received: ?01/10/2022 1733 ? 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 Gross A) Received in [...] is identified. 1:20 PM HEALTH CDT LABORATORY-C Content Coordinator sections are submitted: ENTRAL 1. 2 opposing resection margins, en face LABORATORY 2. Stoma TTP 01/10/2022 Microscopic The final diagnosis is based on microscopic examination of appropriate sections of all specimens. 01/11/2022 OBDULIA WANG Description 1:20 PM HEALTH CDT LABORATORY-C ENTRAL LABORATORY Additional 01/11/2022 [facility] Information Interpreted at [facility], Central Laboratory - [address], [place] [address] 1:20 PM HEALTH CDT LABORATORY-C ENTRAL LABORATORY Specimen Anatomical Collection Method Collection Time Receive d Time (Source) Location / / Volume Laterality Other ILEOSTOMY FLUID 01/10/2022 8:45 AM 2021 5:33 SAMPLE / Unknown CDT PM CDT Kelli Mays MD PATHOLOGY/CYTOLOGY Performing Organization Address City/State/ZIP Code Phon e Number [facility] [address] [place] [address] LABORATORY-CENTRAL 2000 LABORATORY from Last 3 Months Insurance Payer Benefit Plan / Subscriber ID Effective Dates Phone Addre ss Type Group BLUE CROSS BLUE CROSS OF [id number] 2014-Present [address] [address] [place] [address] [address] (Home) [place] [phone] Advance Directives Latest Code Status on File Code Status Date Activated Date Inactivated Comments Full Code 03/18/2021 11:01 AM 03/20/2021 5:01 PM Code Status Discussion: Not Discussed Full Code 12/31/2020 12:12 PM 01/13/2021 12:25 PM Code Status Discussion: Per Existing Order Full Code 12/25/2020 7:47 PM 12/31/2020 12:05 PM Code Status Discussion: Discussed Care Teams Mold Maker Apprentice Relationship Specialty Start Date End Date Samantha Stauffer MD PCP - General Family Practice 12/27/201999 [place] [address] Maria Esther Phan MD Neurology Neurology 12/27/20 [address] [place] [address] Shannon Avery MD Hospitalist Pulmonary Medicine 12/27/[address] [place] [address] Charanjit Gray MD Hospitalist Gastroenterology 12/27/20 [address] [facility] [address] [place], [place] [address]
--- OUTSIDE RECORDS SUMMARY | 2022-01-28 10:56 | XMS_ITS | Encounter Summary ---
:1955 Author Organization [place] Address [address] [place] [address] Care Team Providers Name Role Phone Samantha Stauffer MD Primary Care Provider [phone] Reason for Referral Diagnostic Imaging XR (Routine) - Closed Specialty Diagnoses / Procedures Referred By Contact Refer red To Contact Diagnoses Esophageal dysphagia Charanjit Gray MD Procedures XR Esophagram [facility] [address] [address] [place], [place] [address] Referral ID Status Reason Start Date Expiration Date Visits Requ ested Visits Authorized [id number] Closed 12/09/2020 12/09/2021 1 1 Reason for Visit Diagnostic Imaging XR (Routine) - Closed Specialty Diagnoses / Procedures Referred By Contact Refer red To Contact Diagnoses Esophageal dysphagia Charanjit Gray MD Procedures XR Esophagram [place] [facility] [address] [address] [place], [place] [address] Referral ID Status Reason Start Date Expiration Date Visits Requ ested Visits Authorized [id number] Closed 12/09/2020 12/09/2021 1 1 Encounter Details Date Type Department Care Team Description 12/17/2020 [facility] Charanjit Gray MD Esophageal Encounter [facility] dysphagia [address] [place] [address] [address] [address] [place] [address] [place], [place] [phone] (Wo rk) [address] [phone] Social History Tobacco Use Types Packs/Day Years [...] dose documented in this encounter Care Teams Mine Equipment Design Engineer Relationship Specialty Start Date End Date Samantha Stauffer MD PCP - General Family Medicine 12/17/20 [place] [address] documented as of this encounter
--- OUTSIDE RECORDS SUMMARY | 2022-01-28 10:56 | XMS_ITS | Encounter Summary ---
:1955 Author Organization [facility] Address [address] [place] [address]. [place] [address] Care Team Providers Name Role Phone Lurdes Thomas MD Primary Care Provider [phone] Encounter Details Date Type Department Care Team Description 08/29/2020 Immunization [facility] Logan Nelson Vaccination [address] [address] [place] [address] [phone] Social History Tobacco Use Types Packs/Day Years [...] filedocumented in this encounter Care Teams Machine Deburrer Relationship Specialty Start Date End Date Lurdes Thomas MD PCP - General Internal Medicine 06/11/14 12/16/20 documented as of this encounter
--- OUTSIDE RECORDS SUMMARY | 2022-01-28 10:57 | XMS_ITS | Encounter Summary ---
:1955 Author Organization [place] Address [address] [facility] [place] [address] Care Team Providers Name Role Phone Lurdes Thomas MD Primary Care Provider [phone] Reason for Visit Reason Comments Neurologic Problem Encounter Details Date Type Department Care Team Description 09/08/2014 Office Visit [facility] Alrine Peñaloza S/Jana d eep brain Neurosurgery Clinic MARISOL Del Real INVESTIGATOR FRAUD stimulator placement [place] [address] (Primary Dx) [address] [place], [place] [address] [address] [place] [address] Social History Tobacco Use [...] with tour of facility and escorted to [facility] for CT scan check in. - [...] mins nursing discharge time --Nomi Martell MSN, HEALTHCARE SPECIALIST, INVESTIGATOR FRAUD-C signature documented in this encounter Plan of Treatment Not on filedocumented as of this encounter Visit Diagnoses Diagnosis S/P deep brain stimulator placement - Pr imary documented in this encounter Care Teams Auto Body Mechanic Apprentice Relationship Specialty Start Date End Date Lurdes Thomas MD PCP - General Internal Medicine 06/11/14 12/16/20 documented as of this encounter
--- OUTSIDE RECORDS SUMMARY | 2022-01-28 10:57 | XMS_ITS | Encounter Summary ---
:1955 Author Organization [facility] Address [address] [facility] [place] [address] Care Team Providers Name Role Phone Lurdes Thomas MD Primary Care Provider [phone] Reason for Visit Auth/Cert - Closed Specialty Diagnoses / Procedures Referred By Contact Refer red To Contact Surgery Diagnoses PARKINSONS DISEASE Sh Periop Services Procedures OPTICAL TRACKING SYSTEM INSERTION DEEP BRAIN STIMULATION BILATERAL [address] [place] [address] Phone: Referral ID Status Reason Start Date Expiration Date Visits Requ ested Visits Authorized [id number] Closed 1 1 Encounter Details Date Type Department Care Team Description 09/09/2014 Surgery [facility] Gonzalez Rowland BILATERAL SUBTHALMIC [place] PeriOP MD Tylor NUCLEUS DEEP BRAIN Services XX RESIGNED XX STIMULATOR [address] [place] [address] [place] [address] [phone] Surgery Details Date/Time Status Location OR Service [...] Neurosurgery 1 Arline Peñaloza APRN CNP Assisting Research Analyst Shereen pretty 1 documented in this encounter [...] APRN CNP - 09/10/2014 9:19 AM CDT [facility] Discharge Summary Neurosurgery Date of Admission: [...] up with further consultation recommendations. Rachel Cuadra [facility] [address] [place] [address] Pager [phone] Significant Results and Procedures NONE Pending Results Unresulted Labs Ordered in the Past 30 Days of this Admission No orders found for last 60 day(s). Code Status Full Code Primary Care Physician Lurdes Laughlin [facility] [[email or web address]] Physical Exam Temp: 97.9 ??F (36.6 ??C) [...] other recreational vehicles Call my office at [phone] for increasing redness, swelling or pus draining [...] deep brain stimulator placement vitamin D (ERGOCALCIFEROL) 08830 UNIT capsule Take 1 capsule (50,000 Units) [...] other recreational vehicles Call my office at [phone] for increasing redness, swelling or pus draining [...] Take 1 capsule 4 capsule 2 08/2602/12/2015 91242 UNIT (50,000 Units) by capsuleIndications: Vitamin mouth [...] Thomas MD - 08/25/2014 12:38 PM CDT [address] [place] [address] Dept: [phone] PRE-OP EVALUATION: Today's date: 08/25/2014 Andrew Pang (: 1955) presents for pre-operative evaluation assessment as requested by . He requires evaluation and anesthesia risk assessment prior to undergoing surgery/procedurefor treatment of Parkinson's . Proposed procedure: Deep brain stimulator implant Date of Surgery/ Procedure: 09/09& Time of Surgery/ Procedure: 529 Hospital/Surgical Facility: [facility] Primary Physician: Lurdes Thomas Type of Anesthesia [...] care (reference Craniotomy/Craniectomy/Cranioplasty (Adult) CPG). Outcome: Improving [phone] Neuro: slight tremors hands, would freeze at [...] brain stimulator placement SURGEON: Gonzalez Rowland MD Research Analyst: Arline Hutson NP 59 yo man with [...] eda holes were made with the 14mm supplemental manager drill over the markedbony entry points. The [...] microelectrode were inserted at 15mm above target, [id number] and impedences confirmed <400kohms. I began advancing [...] effects. The decisionwas made to insert a GreenWave Realitytronic 3389 macroelectrode with the distal 0 contact [...] The decision was made to insert a GreenWave Realitytronic 3389 macroelectrode with the distal 0 contact [...] Gonzalez Rowland MD [facility] POCT Performing Organization Address City/State/ZIP Code Phon [...] stimulator leads. LOGAN GUILLERMO MD Arline Peñaloza BARREL LINE OPERATOR DYE REEL OPERATOR HELPER IMG CT ORDERABLES Hemoglobin (09/09/2014 6:10 AM CDT) athologist Signature Hemoglobin 14.8 13.3 - 17.7 [place] g/dL [facility] Specimen Anatomical Collection Method Collection Time Receive d Time (Source) Location / / Volume Laterality Blood specimen 09/09/2014 6:10 AM 015 6:13 (specimen) CDT AM CDT Jacquie Coughlin LAB - BLOOD ORDERABLES Performing Organization Address City/State/ZIP Code Phon e Number [facility] [address] [place] [address] [place] [address] [place] [address] Potassium (09/09/2014 6:10 AM CDT) athologist Signature Potassium 3.4 3.4 - 5.3 [place] mmol/L [facility] Specimen Anatomical Collection Method Collection Time Receive d Time (Source) Location / / Volume Laterality Blood specimen 09/09/2014 6:10 AM 015 6:13 (specimen) CDT AM CDT Jacquie Coughlin LAB - BLOOD ORDERABLES Performing Organization Address City/State/ZIP Code Phon e Number [facility] [address] [place] [address] [place] [address] [place] [address] documented in this encounter Visit Diagnoses Not [...] Site /Surgical Site 09/09/14 at 0858, Intra-procedure pollwwpl-btazzepewf-lqrwpuvqv-calcium Given 09/09/2014 4 mLs Operative (TISSEEL) topical [...] 09/10/2014 amantadine (SYMMETREL) capsule 100 mg (CANCELED) 9903 (Given - Provider: Nasim Haddad RN)2006 (Given [...] RN)0754 (Given - Provider: Millicent Enciso APRN FERRY CAPTAIN)0954 (Given - Provider: Millicent Enciso APRN CRNA) Routine, 2 g, Intravenous, PRE-OP/PRE-TX OCEDURE, Starting on Mon09/09/14 at 0543, For [...] Volume Adjustment - Provider: Millicent Enciso APRN FERRY CAPTAIN)1020 (New Bag - Provider: Millicent Enciso APRN FERRY CAPTAIN)1059 (Anesthesia Volume Adjustment - Provider: Millicent Enciso [...] RN) 0.3-0.5 mg, Intravenous, EVERY 30 MIN TX N, Starting Mon09/09/14 at 1209, Until Mon09/10/14 [...] PRN, Starting on Mon09/09/14 at 0858, Intra-procedure fhoiveqo-sxjoxskuma-vslfmsynk-calcium (TISSEEL) topical solu tion (CANCELED) 0859 (Given - Provider: Gonzalez Rowland)0900 (Given - Provider: Gonzalez Rowland)0901 (Given - Provider: Gonzalez Rowland)0921 (Given - Provider: Gonzalez Rowland)0943 (Given - Provider: Gonzalez Rowland) PRN, Starting on Mon09/09/14 at 0859, Intra-procedure documented in this encounter Care Teams Welding Machine Operator Plasma Arc Relationship Specialty Start Date End Date Lurdes Thomas MD PCP - General Internal Medicine 06/11/14 12/16/20 documented as of this encounter
--- OUTSIDE RECORDS SUMMARY | 2022-01-28 10:57 | XMS_ITS | Encounter Summary ---
:1955 Author Organization [facility] Address [address] [place] [address]. [place] [address] Care Team Providers Name Role Phone Lurdes Thomas MD Primary Care Provider [phone] Reason for Referral Medication Prior Authorization (Routine) - Closed Specialty Diagnoses / Procedures Referred By Contact Refer red To Contact Diagnoses Hyperlipidemia with target LDL less than 130 Lurdes Thomas MD [address] [address] Referral ID Status Reason Start Date Expiration Date Visits Requ ested Visits Authorized [id number] Closed Reason for Visit Reason Onset Date Comments Refill Request 10/20/2015 PRAVASTATIN 80MG Encounter Details Date Type Department Care Team Description 10/20/2015 Refill [facility] Eag Lurdes Rojas Refill Request 1440 Demian Laughlin MD (PRAVASTATIN 80MG) [place] [address] [facility] [phone] [place] [address] [place] [phone] (Wo rk) Social History Tobacco [...] for 6 months. Please advise pt. Maggie wireless sales representative Nurse Telephone Encounter - Julisa Hayden - 10/20/2015 11:53 AM CDT PRAVASTATIN 80MG Last Written Prescription Date: 04/13/2015 Last Fill Quantity: 90, # refills: 1 Last Office Visit with [facility] or [facility] prescribing provider: 02/12/2015 CHOL 219 11/25/2014 HDL 65 11/25/2014 LDL 123 11/25/2014 TRIG 153 11/25/2014 CHOLHDLRATIO 3.4 11/25/2014 documented in this encounter Plan of Treatment Not on filedocumented as of this encounter Visit Diagnoses Diagnosis Hyperlipidemia with target LDL less than 130 - Primary Other and unspecified hyperlipidemia documented in this encounter Care Teams Fruit Or Nut Farm Worker Relationship Specialty Start Date End Date Serum, Lurdes Truman, MD PCP - General Internal Medicine 06/11/14 12/16/20 documented as of this encounter
--- OUTSIDE RECORDS SUMMARY | 2022-01-28 10:57 | XMS_ITS | Encounter Summary ---
:1955 Author Organization [place] Address [address] [facility] [place] [address] Care Team Providers Name Role Phone Lurdes Thomas MD Primary Care Provider [phone] Encounter Details Date Type Department Care Team Description 11/25/2014 Orders Only [facility] Eag an Hyperlipidemia LDL goal < [address] [place] [address] Social History Tobacco [...] athologist Signature Cholesterol 219 (H) <200 mg/dL [facility] Comment: LDL Cholesterol is the primary guide to therapy. The NCEP recommends further evaluation of: patients with cholesterol greater than 200 mg/dL if additional risk facto rs are present, cholesterol greater than 240 mg/dL, triglycerides greater than 1 50 mg/dL, or HDL less than 40 mg/dL. Triglycerides 153 (H) 0 - 150 mg/dL [facility] Comment: Fasting specimen HDL Cholesterol 65 >40 mg/dL [facility] LDL Cholesterol Calculated 123 0 - 129 mg/dL [facility] Comment: LDL Cholesterol is the primary guide to therapy: LDL-cholesterol goal in high risk patients is <100 mg/dL and in very high risk patients is <70 mg/dL. VLDL-Cholesterol 31 (H) 0 - 30 mg/dL [place] [facility] Cholesterol/HDL Ratio 3.4 0.0 - 5.0 [facility] Specimen Anatomical Collection Method Collection Time Receive d Time (Source) Location / / Volume Laterality Blood specimen 11/25/2014 7:57 AM 015 7:58 (specimen) CDT AM CDT Lurdes Thomas MD LAB - BLOOD ORDERABLES Performing Organization Address City/State/ZIP Code Phon e Number [facility] [address] [place] [address] documented in this encounter Visit Diagnoses Diagnosis Hyperlipidemia LDL goal < 130 Other and unspecified hyperlipidemia documented in this encounter Care Teams Service Delivery Manager Relationship Specialty Start Date End Date Lurdes Thomas MD PCP - General Internal Medicine 06/11/14 12/16/20 documented as of this encounter
--- OUTSIDE RECORDS SUMMARY | 2022-01-28 10:57 | XMS_ITS | Encounter Summary ---
:1955 Author Organization [place] Address [address] [place] [address] Care Team Providers Name Role Phone Lurdes Thomas MD Primary Care Provider [phone] Reason for Visit (Routine) - Closed Specialty Diagnoses / Procedures Referred By Contact Refer red To Contact Radiology / Radiology. Diagnoses R#NA, Written Order, SB Doris, Not a read and call. Sh Ct Scan Procedures CT LUMBAR SPINE WO [address] [place] [address] Phone: Referral ID Status Reason Start Date Expiration Date Visits Requ ested Visits Authorized [id number] Closed 08/31/2015 08/30/2016 1 1 Encounter Details Date Type Department Care Team Description 08/31/2015 Hospital Encounter [facility] Parashos, So re low back pain [facility] Maria Esther Amaro MD [address] [place] [address] [place] [id number] Social History Tobacco Use Types Packs/Day Years [...] Lumbago documented in this encounter Care Teams Shaper Setter Relationship Specialty Start Date End Date Lurdes Thomas MD PCP - General Internal Medicine 06/11/14 12/16/20 documented as of this encounter
--- OUTSIDE RECORDS SUMMARY | 2022-01-28 10:57 | XMS_ITS | Encounter Summary ---
:1955 Author Organization [place] Address [address] [place] [address]. [place] [address] Care Team Providers Name Role Phone Lurdes Thomas MD Primary Care Provider [phone] Reason for Visit Reason Onset Date Comments Other 11/13/2014 Battery moving in [facility] Encounter Details Date Type Department Care Team Description 11/13/2014 Telephone [facility] Gonzalez Rowland Other (Ba ttroberto carlos moving [facility] MD Tylor in chest) [place] XX RESIGNED XX [address] [place] [address] [place] [address] [place] [address] [place] [address] [phone] Social History Tobacco Use Types Packs/Day Years [...] Notes Telephone Encounter - Rachel Cuadra, MARISOL PRODUCTION SKI REPAIRER - 11/13/2014 3:03 PM CDT Pt called [...] on filedocumented in this encounter Care Teams Desk Reporter Relationship Specialty Start Date End Date Lurdes Thomas MD PCP - General Internal Medicine 06/11/14 12/16/20 documented as of this encounter
--- OUTSIDE RECORDS SUMMARY | 2022-01-28 10:57 | XMS_ITS | Encounter Summary ---
:1955 Author Organization [place] Address [address] [place] [address]. [place] [address] Care Team Providers Name Role Phone Lurdes Thomas MD Primary Care Provider [phone] Reason for Visit Reason Onset Date [facility] Hospital F/U 09/11/2014 Parkinsons Disease, S/P Deep Brain Stimulator Placement, S/P Deep Brain Stimulato r Placement, 09/10/14, 0 Encounter Details Date Type Department Care Team Description 09/11/2014 Telephone [facility] F/U [address] [facility] MD [place] (Parkinsons Disease, [place] [address] [facility] S/P Deep Brain [phone] [place] Stimulator Placement, 27[address] [facility] S/P Deep B rain Stimulator Placement, [place], [place] [address] 09/10/14, 0 ) [phone] (Wo rk) Social History Tobacco Use Types [...] with information to call me back. Maggie sales person Nurse Telephone Encounter - Kiara Oviedo RN - 09/11/2014 12:52 PM CDT ED / Discharge Outreach Protocol Patient Contact Attempt # 1 Was call answered? No. Left message on voicemail with information to call me back. Telephone Encounter - Josy Garza - 09/11/2014 10:53 AM CDT Please contact patient for In-patient follow up. [phone] (home) None (work) Visit date: 09/10/14 Diagnosis listed:Parkinsons Disease, S/P Deep Brain Stimulator Placement, S/P Deep Brain Stimulator Placement Number of visits in past 12 months:0/1 documented in this encounter Plan of Treatment Not on filedocumented as of this encounter Visit Diagnoses Not on filedocumented in this encounter Care Teams Pick And Shovel Man Relationship Specialty Start Date End Date Lurdes Thomas MD PCP - General Internal Medicine 06/11/14 12/16/20 documented as of this encounter
--- OUTSIDE RECORDS SUMMARY | 2022-01-28 10:57 | XMS_ITS | Encounter Summary ---
:1955 Author Organization [place] Address [address] [place] [address]. [place] [address] Care Team Providers Name Role Phone Lurdes Thomas MD Primary Care Provider Reason for Visit Reason Onset Date Comments Prior Auth - Medication 02/12/2015 viagra Encounter Details Date Type Department Care Team Description 02/12/2015 Telephone [facility] Lurdes Oh Prior Auth - Medication 14[address] [facility] MD [place] (viagra ) [place] [address] [facility] [phone] [place] [address] (Wo rk) Social History Tobacco Use [...] on filedocumented in this encounter Care Teams Sintering Plant Supervisor Relationship Specialty Start Date End Date Lurdes Thomas MD PCP - General Internal Medicine 06/11/14 12/16/20 documented as of this encounter
--- OUTSIDE RECORDS SUMMARY | 2022-01-28 10:57 | XMS_ITS | Encounter Summary ---
:1955 Author Organization [place] Address [address] [place] [address]. [place] [address] Care Team Providers Name Role Phone Lurdes Thomas MD Primary Care Provider [phone] Reason for Visit Reason Comments Recheck Medication Encounter Details Date Type Department Care Team Description 02/12/2015 Office Visit [facility] Lurdes Thomas Back pain (Primary Dx); Uzair Laughlin MD Hyperlipidemia LDL goal < 130; [address] Prediabetes; [place] [address] [facility] Vitamin D deficiency; [phone] 86[address] [facility] Erectile d ysfunction; RD Screening for colon cancer; [place], [place] Screening for p rostate cancer [address] Social History Tobacco Use Types Packs/Day Years [...] list, Allergies, and Medical/Social/Surgical histories reviewed in [facility] andupdated as appropriate. OBJECTIVE: BP [...] annual visit and as needed Lurdes Thomas [facility] UZA[facility] documented in this encounter [...] Signature PSA 0.50 0 - 4 ug/L [facility] Specimen Anatomical Collection Method Collection Time Receive d Time (Source) Location / / Volume Laterality Blood specimen 02/12/2015 10:25 5 (specimen) AM CDT 10:30 AM CDT Lurdes Thomas MD LAB - BLOOD ORDERABLES Performing Organization Address City/State/ZIP Code Phon e Number [facility] [address] [place] [address] [facility] [address] [place] [address], [place] [phone] Vitamin D Deficiency (02/12/2015 10:25 AM CDT) P athologist Signature Vitamin D 29 20 - 75 [facility] Deficiency ug/L [place] [facility] Comment: Season, race, dietary intake, and treatm ent affect the concentration of 29-rzzrqal-Sgjpzqs D. Values may decrea se during winter [...] Phon e Number [facility] [address] [place] [address] [facility] Glucose (02/12/2015 10:25 AM CDT) athologist Signature Glucose 94 70 - 99 [facility] mg/dL [facility] Specimen Anatomical Collection Method Collection Time Receive d Time (Source) Location / / Volume Laterality Blood specimen 02/12/2015 10:25 5 (specimen) AM CDT 10:30 AM CDT Lurdes Thomas MD LAB - BLOOD ORDERABLES Performing Organization Address City/State/ZIP Code Phon e Number [facility] [address] [place] [address] documented in this encounter Visit Diagnoses Diagnosis [...] prostate documented in this encounter Care Teams Cook Tortilla Relationship Specialty Start Date End Date Lurdes Thomas MD PCP - General Internal Medicine 06/11/14 12/16/20 documented as of this encounter
--- OUTSIDE RECORDS SUMMARY | 2022-01-28 10:57 | XMS_ITS | Encounter Summary ---
:1955 Author Organization [place] Address [address] [place] [address]. [place] [address] Care Team Providers Name Role Phone Lurdes Thomas MD Primary Care Provider [phone] Reason for Visit Reason Onset Date Comments Outreach 05/30/2015 [facility] call not require d FIT ordered,[place] Encounter Details Date Type Department Care Team Description 05/30/2015 Telephone [facility] Lurdes Thomas h (PHS call not [facility] - TYLER Laughlin MD required FIT MANAGEMENT DEPT [facility] ordered,cnt) [address] [place] [address] [address] [place] [address] [address] [phone] [place], [place] [address] (Wo rk) Social History Tobacco [...] filedocumented in this encounter Care Teams Director Of Land Relationship Specialty Start Date End Date Lurdes Thomas MD PCP - General Internal Medicine 06/11/14 12/16/20 documented as of this encounter
--- OUTSIDE RECORDS SUMMARY | 2022-01-28 10:57 | XMS_ITS | Encounter Summary ---
:1955 Author Organization [place] Address [address] [facility] [address] Care Team Providers Name Role Phone Lurdes Thomas MD Primary Care Provider Encounter Details Date Type Department Care Team Description 10/09/2014 Medical Correspondence [facility] Scan, LETTER FROM [facility], Non-Provider NIECY COOPER, Health Info Elicia CONTRERAS MD-09/20 Srvcs [address] [facility] [address] [place] [address] Social History Tobacco Use Types Packs/Day [...] on filedocumented in this encounter Care Teams Hvac Manager Relationship Specialty Start Date End Date Ludres Thomas MD PCP - General Internal Medicine 06/11/14 12/16/20 documented as of this encounter
--- OUTSIDE RECORDS SUMMARY | 2022-01-28 10:57 | XMS_ITS | Encounter Summary ---
:1955 Author Organization [place] Address [address] [place] [address]. [place] [address] Care Team Providers Name Role Phone Lurdes Thomas MD Primary Care Provider [phone] Reason for Visit Reason Onset Date Comments Refill Request 11/17/2014 PRAVASTATIN 80MG Encounter Details Date Type Department Care Team Description 11/17/2014 Refill [facility] Eag Lurdes Rojas Refill Request 14[address] [facility] MD [place] (PRAVASTATIN 80MG) [place] [address] [facility] [phone] [place] [address] (Wo rk) Social History Tobacco Use [...] # refills: 0 Last Office Visit with [facility] primary care provider: 08/25/2014 CHOL 178 09/20/2012 HDL 66 09/20/2012 LDL 95 09/20/2012 TRIG 83 09/20/2012 CHOLHDLRATIO 2.7 09/20/2012 documented in this encounter Plan of Treatment Not on filedocumented as of this encounter Visit Diagnoses Diagnosis Hyperlipidemia LDL goal < 130 - Primary Other and unspecified hyperlipidemia documented in this encounter Care Teams Seasoner Relationship Specialty Start Date End Date Lurdes Thomas MD PCP - General Internal Medicine 06/11/14 12/16/20 documented as of this encounter
--- OUTSIDE RECORDS SUMMARY | 2022-01-28 10:57 | XMS_ITS | Encounter Summary ---
:1955 Author Organization [place] Address [address] [place] [address] Care Team Providers Name Role Phone Lurdes Thomas MD Primary Care Provider Reason for Visit Reason Comments Neurologic Problem Staple Removal Encounter Details Date Type Department Care Team Description 09/22/2014 Office Visit [facility] Rachel Cuadra, CHILD CARE DIRECTOR [facility] [address] [place] [address] S/P deep brain Neurosurgery Clinic Arline Peñaloza, MARISOL ORCHARD HAND [address] [place] [address] stimulator placement Vivian (Primary Dx) [address] [address] Social History Tobacco Use Types [...] swelling. [facility] [place] [address] Pager [phone] Mony Meraz 09/22/2014 10:30 AM CDT Andrew [...] imary documented in this encounter Care Teams Health And Wellness Coach Relationship Specialty Start Date End Date Lurdes Thomas MD PCP - General Internal Medicine 06/11/14 12/16/20 documented as of this encounter
--- OUTSIDE RECORDS SUMMARY | 2022-01-28 10:57 | XMS_ITS | Encounter Summary ---
:1955 Author Organization [place] Address [address] [facility] [place] [address] Care Team Providers Name Role Phone Lurdes Thomas MD Primary Care Provider [phone] Encounter Details Date Type Department Care Team Description 09/18/2014 Documentation Only [facility] Gonzalez Rowland Neurosurgery Clinic MD See [place] XX RESIGNED XX [address] [facility] out [address] [facility] [address] [place] [address] [place] [address] [phone] Social History Tobacco Use Types Packs/Day Years [...] is because it would provide him with nujnue-ako-tuhjx control of his motor symptoms, which would [...] on filedocumented in this encounter Care Teams Railroad Crossing Protection Maintainer Relationship Specialty Start Date End Date Lurdes Thomas MD PCP - General Internal Medicine 06/11/14 12/16/20 documented as of this encounter
--- OUTSIDE RECORDS SUMMARY | 2022-01-28 10:57 | XMS_ITS | Encounter Summary ---
:1955 Author Organization [place] Address [address] [facility] [place] [address] Care Team Providers Name Role Phone Lurdes Thomas MD Primary Care Provider [phone] Reason for Visit (Routine) - Closed Specialty Diagnoses / Procedures Referred By Contact Refer red To Contact Radiology / Radiology. Procedures Uu Mri MR LUMBAR SPINE [address] [place] [address] Phone: Referral ID Status Reason Start Date Expiration Date Visits Requ ested Visits Authorized [id number] Closed 08/18/2015 08/17/2016 1 1 Encounter Details Date Type Department Care Team Description 08/21/[address] [facility] ParashosVianeye re low back pain [facility] Imaging Maria Esther Amaro MD [address] [place], [place] [address] [employer] [address] [place] [address] Social History Tobacco Use Types [...] Lumbago documented in this encounter Care Teams Centrifugal Casting Machine Tender Relationship Specialty Start Date End Date Lurdes Thomas MD PCP - General Internal Medicine 06/11/14 12/16/20 documented as of this encounter
--- OUTSIDE RECORDS SUMMARY | 2022-01-28 10:57 | XMS_ITS | Encounter Summary ---
:1955 Author Organization [place] Address [address] [place] [address] Care Team Providers Name Role Phone Lurdes Thomas MD Primary Care Provider [phone] Reason for Visit Auth/Cert - Closed Specialty Diagnoses / Procedures Referred By Contact Refer red To Contact Surgery Diagnoses PARKINSONS DISEASE Sh Periop Services Procedures OPTICAL TRACKING SYSTEM INSERTION DEEP BRAIN STIMULATION BILATERAL [address] [place] [address] Phone: Referral ID Status Reason Start Date Expiration Date Visits Requ ested Visits Authorized [id number] Closed 1 1 Encounter Details Date Type Department Care Team Description 09/09/2014 Anesthesia Event [facility] Andrew Narayan [place] PeriOP Ser shyann [place] [address] [facility] [address] ANESTHESIOLOGIS [place] [address] [phone] [place] [address] Anesthesia Record Procedure [...] benefits and alternatives discussed with: patient or direct marketing representative. . History & Physical Review History [...] Arline Hutson APRN CNP vitamin D (ERGOCALCIFEROL) 54260 UNIT capsule Take 1 capsule (50,000 Units) [...] results for input(s): INR in the last 58544 hours. Invalid input(s): APTT RECENT LABS: ECG: NSR ECHO: CXR: documented in this encounter Miscellaneous Notes Anesthesia Care Transfer Note - Millicent Enciso APRN COMMUNICATIONS PROGRAMMER - 09/09/2014 10:58 AM CDT Anesthesia Care [...] mg documented in this encounter Care Teams Sports Physiotherapist Relationship Specialty Start Date End Date Lurdes Thomas MD PCP - General Internal Medicine 06/11/14 12/16/20 documented as of this encounter
--- OUTSIDE RECORDS SUMMARY | 2022-01-28 10:57 | XMS_ITS | Encounter Summary ---
:1955 Author Organization [place] Address [address] [facility] [place] [address] Care Team Providers Name Role Phone Lurdes Thomas MD Primary Care Provider [phone] Reason for Visit Auth/Cert - Closed Specialty Diagnoses / Procedures Referred By Contact Refer red To Contact Surgery Diagnoses PARKINSONS DISEASE Sh Periop Services Procedures IMPLANT PULSE GENERATOR SUBCUTANEOUS [address] [place] [address] Phone: Referral ID Status Reason Start Date Expiration Date Visits Requ ested Visits Authorized [id number] Closed 1 1 Encounter Details Date Type Department Care Team Description 09/16/2014 Hospital Encounter [facility] Gonzalez Rowland PreOP/Phase Liliam [place] II XX RESIGNED XX [address] [place] [address] [place] [address] [phone] Social History Tobacco Use Types Packs/Day Years [...] this encounter Discharge Summaries Arline Hutson APRN HIGH PRESSURE CLEANER - 09/16/2014 8:46 AM CDT Physician Discharge Summary Patient ID: Andrew Pang [id number] 59 year old 1955 Admit date: 09/16/2014 Discharge date and time: 09/16/2014 Admitting Physician: Gonzalez Rowland MD Discharge Physician: Arline Hutson [facility] Admission Diagnoses: PARKINSONS DISEASE Discharge Diagnoses: Parkinsons [...] deep brain stimulator placement vitamin D (ERGOCALCIFEROL) 07165 UNIT capsule Take 1 capsule (50,000 Units) [...] Deep Brain Stimulator Postop Instructions Dr. Rowland [phone] 1. Ok to shower after 3 days. [...] have aDBS and the contact number for [facility] should be provided. ?? Some procedures require that the DBS system is turned off. [facility] can also instruct and guide regarding this. ?? You have been given a patient object oriented programmer that can check that the stimulator [...] Take 1 capsule 4 capsule 2 08/2602/12/2015 56521 UNIT (50,000 Units) by capsuleIndications: Vitamin mouth every 7 D deficiency disease days documented as of this encounter H&P Notes Corine Alexander - 09/11/2014 7:49 AM CDT The purpose of this note is to make the H&P performed in the clinic within the last 30 days available in the hospital surgical encounter. Source Note - Lurdes Thomas MD - 08/25/2014 12:38 PM CDT [address] [address] Dept: [phone] PRE-OP EVALUATION: Today's date: 08/25/2014 Andrew Pang (: 1955) presents for pre-operative evaluation assessment as requested by . He requires evaluation and anesthesia risk assessment prior to undergoing surgery/procedurefor treatment of Parkinson's . Proposed procedure: Deep brain stimulator implant Date of Surgery/ Procedure: 09/09& Time of Surgery/ Procedure: 529 Hospital/Surgical Facility: [facility] Primary Physician: Lurdes Thomas Type [...] cardiovascular risks for perioperative complications such as (MA, PE, VFib and 3?? AV Block): No [...] evaluation report is provided to requesting physician. [place] Preop Guidelines documented in this encounter Nursing [...] bilateral lead extensions SURGEON: Gonzalez Rowland MD Mold Filler Plastic Dolls: Arline Hutson NP PROCEDURE: The patient was [...] Post-procedure documented in this encounter Care Teams Supervisor Soakers Relationship Specialty Start Date End Date Lurdes Thomas MD PCP - General Internal Medicine 06/11/14 12/16/20 documented as of this encounter
--- OUTSIDE RECORDS SUMMARY | 2022-01-28 10:57 | XMS_ITS | Encounter Summary ---
:1955 Author Organization [place] Address [address] [place] [address] Care Team Providers Name Role Phone Lurdes Thomas MD Primary Care Provider [phone] Reason for Visit Auth/Cert - Closed Specialty Diagnoses / Procedures Referred By Contact Refer red To Contact Surgery Diagnoses PARKINSONS DISEASE Sh Periop Services Procedures OPTICAL TRACKING SYSTEM INSERTION DEEP BRAIN STIMULATION BILATERAL [address] [place] [address] Phone: Referral ID Status Reason Start Date Expiration Date Visits Requ ested Visits Authorized [id number] Closed 1 1 Encounter Details Date Type Department Care Team Description 09/09[facility]2014 [facility]2014 Simone Snider MD Care XX RESIGNED XX [address] [place] [address] [place] [id number] Social History Tobacco Use Types Packs/Day Years [...] APRN CNP - 09/10/2014 9:19 AM CDT [facility] Discharge Summary Neurosurgery Date of [...] up with further consultation recommendations. Rachel Cuadra MOLDED RUBBER GOODS CUTTER [facility] [address] [place] [address] Pager [phone] Significant Results and Procedures NONE Pending Results [...] other recreational vehicles Call my office at [phone] for increasing redness, swelling or pus draining [...] deep brain stimulator placement vitamin D (ERGOCALCIFEROL) 77813 UNIT capsule Take 1 capsule (50,000 Units) [...] encounter Discharge Instructions Discharge Rachel Muñoz APRN MOLDED RUBBER GOODS CUTTER - 09/10/2014 9:19 AM CDT Discharge instructions: No lifting of more than 10 pounds until follow up visit as scheduled Ok to walk as tolerated, avoid bedrest. Ok to use ice to areas. No contact sports until after follow up visit No high impact activities such as; running/jogging, Biking, snowmobile or 4 miller riding or any other recreational vehicles Call my office at [phone] for increasing redness, swelling or pus draining [...] Take 1 capsule 4 capsule 2 08/2602/12/2015 13620 UNIT (50,000 Units) by capsuleIndications: Vitamin mouth [...] Thomas MD - 08/25/2014 12:38 PM CDT [address] [address] Dept: [phone] PRE-OP EVALUATION: Today's date: 08/25/2014 Andrew Poly [...] evaluation report is provided to requesting physician. [facility] Preop Guidelines documented in this encounter Nursing [...] care (reference Craniotomy/Craniectomy/Cranioplasty (Adult) CPG). Outcome: Improving [phone] Neuro: slight tremors hands, would freeze at times with walking/transfer otherwise intact as pre hospitalization per pt. CV: Nicardipine weaned to off keeping SB/P 90-140. GI Eating well. U/O voiding. Discharge instructions reviewed and given, see paper sheets. Discharged with to [facility] with w/cand volunteer Plan of Care [...] brain stimulator placement SURGEON: Gonzalez Rowland MD Development Technical Lead: Arline Hutson NP 59 yo man with [...] eda holes were made with the 14mm nurse intern drill over the markedbony entry points. [...] microelectrode were inserted at 15mm above target, [id number] and impedences confirmed <400kohms. I began advancing [...] effects. The decisionwas made to insert a DLStronic 3389 macroelectrode with the distal 0 contact [...] The decision was made to insert a DLStronic 3389 macroelectrode with the distal 0 contact [...] 8:20 CDT AM CDT Gonzalez Rowland MD [facility] POCT Performing Organization Address City/State/ZIP Code [...] stimulator leads. LOGAN GUILLERMO MD Arline Peñaloza MOLASSES PREPARER MOLDED RUBBER GOODS CUTTER IMG CT ORDERABLES Hemoglobin (09/09/2014 6:10 AM CDT) P athologist Signature Hemoglobin 14.8 13.3 - 17.7 [facility] g/dL [facility] Specimen Anatomical Collection Method Collection Time Receive d Time (Source) Location / / Volume Laterality Blood specimen 09/09/2014 6:10 AM 015 6:13 (specimen) CDT AM CDT Jacquie Coughlin LAB - BLOOD ORDERABLES Performing Organization Address City/State/ZIP Code Phon e Number M [facility] [address], [place] [address] [phone] [facility] [address] [place] [address] Potassium (09/09/2014 6:10 AM CDT) athologist Signature Potassium 3.4 3.4 - 5.3 [place] mmol/L [facility] Specimen Anatomical Collection Method Collection Time Receive d Time (Source) Location / / Volume Laterality Blood specimen 09/09/2014 6:10 AM 015 6:13 (specimen) CDT AM CDT Jacquie Coughlin LAB - BLOOD ORDERABLES Performing Organization Address City/State/ZIP Code Phon e Number [facility] [address] [place] [address] [facility] [address] [place] [address] documented in this encounter Visit Diagnoses Diagnosis [...] Enciso APRN CRNA) Routine, 2 g, Intravenous, PRE-OP/PRE-KY OCEDURE, Starting on Mon09/09/14 at 0543, For [...] mg (CANCELED) 1237 (Not Given - Provider: Nsaim Haddad RN - Reason: Patient/family refused - [...] Volume Adjustment - Provider: Millicent Enciso APRN LIGHTHOUSE KEEPER)1020 (New Bag - Provider: Millicent Enicso APRN CRNA)1059 (Anesthesia Volume Adjustment - Provider: [...] RN) 0.3-0.5 mg, Intravenous, EVERY 30 MIN [place] N, Starting Mon09/09/14 at 1209, Until Mon09/10/14 [...] (Rate/Dose Change - Provider: Millicent Enciso APRN LIGHTHOUSE KEEPER)0853 (Rate/Dose Change - Provider: Millicent Enciso APRN [...] (Rate/Dose Change - Provider: Millicent Enciso APRN LIGHTHOUSE KEEPER)1030 (Rate/Dose Change - Provider: Millicent Enciso APRN LIGHTHOUSE KEEPER) 1040 (Rate/Dose Scott ge - Provider: Millicent [...] PRN, Starting on Mon09/09/14 at 0858, Intra-procedure gzytawjc-puadxiiozw-odvyyzryc-calcium (TISSEEL) topical solu tion (CANCELED) 0859 (Given - Provider: Gonzalez Rowland)0900 (Given - Provider: Gonzalez Rowland)0901 (Given - Provider: Gonzalez Rowland)0921 (Given - Provider: Gonzalez Rowland)0943 (Given - Provider: Gonzalez Rowland) PRN, Starting on Mon09/09/14 at 0859, Intra-procedure documented in this encounter Care Teams Sterile Tech Relationship Specialty Start Date End Date Lurdes Thomas MD PCP - General Internal Medicine 06/11/14 12/16/20 documented as of this encounter
--- OUTSIDE RECORDS SUMMARY | 2022-01-28 10:57 | XMS_ITS | Encounter Summary ---
:1955 Author Organization [facility] Address [address] [facility] [place] [address] Care Team Providers Name Role Phone Lurdes Thomas MD Primary Care Provider [phone] Reason for Visit Auth/Cert - Closed Specialty Diagnoses / Procedures Referred By Contact Refer red To Contact Surgery Diagnoses PARKINSONS DISEASE Sh Periop Services Procedures IMPLANT PULSE GENERATOR SUBCUTANEOUS [address] [place] [address] Phone: Referral ID Status Reason Start Date Expiration Date Visits Requ ested Visits Authorized [id number] Closed 1 1 Encounter Details Date Type Department Care Team Description 09/16/2014 Surgery [facility] Gonzalez Rowland BILATERAL LEAD EXTENSION Southhelena Snider MD AND RIGHT INFRACLAVICULAR Services XX RESIGNED XX PULSE GENERATOR PLACEMENT [address] ([employer]) [address] [place] [address] [place] [address] [phone] Surgery Details Date/Time Status Location OR Service [...] MD Primary Neurosurgery 1 Arline Peñaloza APRN MELT SUPERVISOR Radioisotope Technologist Autho rization 1 documented in this encounter [...] Physician Discharge Summary Patient ID: Andrew Pang [id number] 59 year old 1955 Admit date: 09/16/2014 Discharge date and time: 09/16/2014 Admitting Physician: Gonzalez Rowland MD Discharge Physician: Arline Hutson [facility] Admission Diagnoses: PARKINSONS DISEASE Discharge Diagnoses: [...] deep brain stimulator placement vitamin D (ERGOCALCIFEROL) 67657 UNIT capsule Take 1 capsule (50,000 Units) [...] Deep Brain Stimulator Postop Instructions Dr. Rowland [phone] 1. Ok to shower after 3 days. [...] ?? You have been given a patient mastercam programmer that can check that the stimulator [...] Take 1 capsule 4 capsule 2 08/2602/12/2015 36526 UNIT (50,000 Units) by capsuleIndications: Vitamin mouth every 7 D deficiency disease days documented as of this encounter H&P Notes Corine Alexander - 09/11/2014 7:49 AM CDT The purpose of this note is to make the H&P performed in the clinic within the last 30 days available in the hospital surgical encounter. Source Note - Lurdes Thomas MD - 08/25/2014 12:38 PM CDT [address] [address] Dept: [phone] PRE-OP EVALUATION: Today's date: 08/25/2014 Andrew Pang (: 1955) presents for pre-operative evaluation assessment as requested by . He requires evaluation and anesthesia risk assessment prior to undergoing surgery/procedurefor treatment of Parkinson's . Proposed procedure: Deep brain stimulator implant Date of Surgery/ Procedure: 09/09& Time of Surgery/ Procedure: 05 Hospital/Surgical Facility: [facility] Primary Physician: Lurdes Thomas Type of [...] cardiovascular risks for perioperative complications such as (OH, PE, VFib and 3?? AV Block): No [...] evaluation report is provided to requesting physician. [facility] Preop Guidelines documented in this encounter Nursing [...] bilateral lead extensions SURGEON: Gonzalez Rowland MD Radioisotope Technologist: Arline Hutson NP PROCEDURE: The patient was [...] Provider: Pavel Miner) Routine, 2 g, Intravenous, PRE-OP/PRE-OR OCEDURE, Starting on Mon09/16/14 at 0638, For [...] Post-procedure documented in this encounter Care Teams Thermodynamics Engineer Relationship Specialty Start Date End Date Lurdes Thomas MD PCP - General Internal Medicine 06/11/14 12/16/20 documented as of this encounter
--- OUTSIDE RECORDS SUMMARY | 2022-01-28 10:57 | XMS_ITS | Encounter Summary ---
:1955 Author Organization [place] Address [address] [facility] [place] [address] Care Team Providers Name Role Phone Lurdes Thomas MD Primary Care Provider [phone] Reason for Visit Auth/Cert - Closed Specialty Diagnoses / Procedures Referred By Contact Refer red To Contact Surgery Diagnoses PARKINSONS DISEASE Sh Periop Services Procedures IMPLANT PULSE GENERATOR SUBCUTANEOUS [address] [place] [address] Phone: Referral ID Status Reason Start Date Expiration Date Visits Requ ested Visits Authorized [id number] Closed 1 1 Encounter Details Date Type Department Care Team Description 09/16/2014 Anesthesia Event [facility] Jacquie Coughlin ANESTHESIOLOGY [address] [place] [id number] Simone PeriOP Ser Rogelio Gee MD [facility] [address] [place] [id number] [address] [place] [...] EXTENSION AND RIGHT INFRACLAVICULAR PULSE GENERATOR PLACEMENT (Clean PET) Anesthesia type: General, ETT Post Op Diagnosis: [...] Arline Hutson APRN CNP vitamin D (ERGOCALCIFEROL) 71773 UNIT capsule Take 1 capsule (50,000 Units) [...] 1900 04/12/10 Lurdes Thomas MD No current [facility]-ordered facility-administered medications on file. No current [...] results for input(s): INR in the last 64839 hours. Invalid input(s): APTT RECENT LABS: ECG: [...] alternatives discussed with: patient or sales representative sales manager. . History & Physical Review History and [...] Intra-op documented in this encounter Care Teams Aboriginal Liaison Officer Relationship Specialty Start Date End Date Lurdes Thomas MD PCP - General Internal Medicine 06/11/14 12/16/20 documented as of this encounter
--- OUTSIDE RECORDS SUMMARY | 2022-01-28 10:57 | XMS_ITS | Encounter Summary ---
:1955 Author Organization [place] Address [address] [facility] [place] [address] Care Team Providers Name Role Phone Lurdes Thomas MD Primary Care Provider [phone] Encounter Details Date Type Department Care Team Description 09/11/2014 Telephone [facility] Nurse Eladia Muñoz, RN Advisors [address] [place] [address] Social History Tobacco Use Types Packs/Day [...] bandages are is very itchy. Will page sec reporting consultant for [facility] page run boat operator for [facility] to have sec reporting consultant Dr. Rowland call Natasha @ [phone]. Did not complete infection screen for ebola. [...] as expected or comes out ? NO diver helper (pump, infusion catheter) damaged or not functioning [...] least 15 seconds or use a hand public relations manager before and after touching the wound area. [...] on filedocumented in this encounter Care Teams Setter Juice Packaging Machines Relationship Specialty Start Date End Date Lurdes Thomas MD PCP - General Internal Medicine 06/11/14 12/16/20 documented as of this encounter
--- OUTSIDE RECORDS SUMMARY | 2022-01-28 10:57 | XMS_ITS | Encounter Summary ---
:1955 Author Organization [facility] Address [address] [place] [address]. [place] [address] Care Team Providers Name Role Phone Lurdes Thomas MD Primary Care Provider Reason for Visit Reason Onset Date Comments Refill Request 04/15/2016 PRAVASTATIN 80MG Encounter Details Date Type Department Care Team Description 04/15/2016 Refill [facility] Eag an Lurdes Thomas Refill Request [address] [facility] MD [place] (PRAVASTATIN 80MG) [place] [address] [facility] [phone] [address] (Wo rk) Social History [...] Lurdes Thomas MD - 04/15/2016 4:37 PM COFFEE SUPERVISOR Mychart sent telling patient cannot continue to fill medications without visit. Lurdes Thomas MD Internal Medicine/Pediatrics EE SUPERVISOR Telephone Encounter - Chanell Villa RN - 04/15/2016 4:30 PM COFFEE SUPERVISOR Made multiple attempts(LM & MC message) from October advising pt that he is due for an OV. Pt haven't responded. Routing refill request to provider for review/approval because: Hawa given x1 and patient did not follow up, please advise Chanell.Liliam food service coordinator Nurse EE SUPERVISOR Telephone Encounter - Genie Mello - 04/15/2016 4:28 PM CST PRAVASTATIN 80MG Last Written Prescription Date: 10/23/2015 Last Fill Quantity: 90, # refills: 1 Last Office Visit with [facility] [place], [facility] or [facility] prescribing provider: 02/12/2015 CHOL 219 11/25/2014 HDL 65 11/25/2014 LDL 123 11/25/2014 TRIG 153 11/25/2014 CHOLHDLRATIO 3.4 11/25/2014 EE SUPERVISOR documented in this encounter Plan of Treatment Not on filedocumented as of this encounter Visit Diagnoses Diagnosis Hyperlipidemia with target LDL less than 130 - Primary Other and unspecified hyperlipidemia documented in this encounter Care Teams Software Project Engineer Relationship Specialty Start Date End Date Lurdes Thomas MD PCP - General Internal Medicine 06/11/14 12/16/20 documented as of this encounter
--- OUTSIDE RECORDS SUMMARY | 2022-01-28 10:57 | XMS_ITS | Encounter Summary ---
:1955 Author Organization [place] Address [address] [facility] [address] Care Team Providers Name Role Phone Lurdes Thomas MD Primary Care Provider Reason for Visit (Routine) - Closed Specialty Diagnoses / Procedures Referred By Contact Refer red To Contact Radiology / Radiology. Diagnoses R#NA, BC, Epic Order Sh Ct Scan Procedures [address] [place] [address] [place] [address] Phone: Referral ID Status Reason Start Date Expiration Date Visits Requ ested Visits Authorized [id number] Closed 08/11/2014 08/11/2015 1 1 Encounter Details Date Type Department Care Team Description 09/08/2014 Hospital Encounter [facility] Rachel Cuadra rkinson's disease [facility] Imaging Lm, HADOOP SOFTWARE ENGINEER CLIENT SERVER PROGRAMMER (H) [address] [place] [address] ORTHOPEDICS [phone] [place] [address] Social History Tobacco Use Types Packs/Day Years [...] Take 1 capsule 4 capsule 2 08/2602/12/2015 48881 UNIT (50,000 Units) by capsuleIndications: Vitamin mouth [...] abnormality. FAMILIA GUILLERMO MD Rachel Cuadra APRN CLIENT SERVER PROGRAMMER IMG CT ORDERABLES documented in this encounter Visit Diagnoses Diagnosis Parkinson's disease (H) Paralysis agitans documented in this encounter Care Teams Hospital Coder Relationship Specialty Start Date End Date Lurdes Thomas MD PCP - General Internal Medicine 06/11/14 12/16/20 documented as of this encounter
--- OUTSIDE RECORDS SUMMARY | 2022-01-28 10:57 | XMS_ITS | Encounter Summary ---
:1955 Author Organization [place] Address [address] [place] [address]. [place] [address] Care Team Providers Name Role Phone Lurdes Thomas MD Primary Care Provider [phone] Reason for Visit Reason Onset Date Comments Panel Management 06/25/2015 Encounter Details Date Type Department Care Team Description 06/25/2015 Telephone [facility] Lurdes Oh Panel Management [address] [facility] [place] [address] [facility] [phone] [address] [place], [place] [address] (Wo rk) Social History Tobacco Use [...] a reminder letter regarding the FIT test. LSTERER HELPER Telephone Encounter - Tamy Leahy LPN - 06/25/2015 2:13 PM CST Panel Management Review Patient has the following on his problem list: none Composite cancer screening Chart review shows that this patient is due/due soon for the following Fecal Colorectal (FIT) Summary: Patient is due/failing the following: FIT Action needed: FIT test completion Type of outreach: Sent [employer] message. Reminding patient to complete FIT test. Questions for provider review: None Tamy Leahy LPN Chart routed to Care Team . LSTERER HELPER documented in this encounter Plan of Treatment Not on filedocumented as of this encounter Visit Diagnoses Not on filedocumented in this encounter Care Teams Licensed Prosthetist Relationship Specialty Start Date End Date Lurdes Thomas MD PCP - General Internal Medicine 06/11/14 12/16/20 documented as of this encounter
--- OUTSIDE RECORDS SUMMARY | 2022-01-28 10:57 | XMS_ITS | Encounter Summary ---
:1955 Author Organization [place] Address [address] [facility] [place] [address] Care Team Providers Name Role Phone Lrudes Thomas MD Primary Care Provider [phone] Encounter Details Date Type Department Care Team Description 09/03/2014 Medical Correspondence [facility] FELICE Hernández KATHY [facility], Non-Provider MD-ORDER -09/03/2014 Health Info [facility] [address] [facility] [place] [address] Social History Tobacco Use Types [...] on filedocumented in this encounter Care Teams Launderette Attendant Relationship Specialty Start Date End Date Lurdes Thomas MD PCP - General Internal Medicine 06/11/14 12/16/20 documented as of this encounter
--- OUTSIDE RECORDS SUMMARY | 2022-01-28 10:57 | XMS_ITS | Encounter Summary ---
:1955 Author Organization [place] Address [address] [place] [address]. [place] [address] Care Team Providers Name Role Phone Lurdes Thomas MD Primary Care Provider Reason for Visit Reason Onset Date Comments Panel Management 11/19/2014 Colonoscopy Encounter Details Date Type Department Care Team Description 11/19/2014 Telephone [facility] Lurdes Oh Panel Management [address] [facility] MD [place] (Colonoscopy) [place] [address] [facility] [phone] [address] (Wo rk) Social History Tobacco Use [...] Review Date of last visit with a [place] [facility] provider: Dr Thomas on 09/22/14. Date of next visit with a [place] provider: None. Problem List Patient Active [...] visit for Colonoscopy/FIT. Type of outreach: Sent [employer] message. Questions for provider review: None Please indicate office visit, lab, MTM, or nurse appt if needed. Indicate fasting or not fasting. Tamy Leahy LPN Chart routed to Care Team . documented in this encounter Plan of Treatment Not on filedocumented as of this encounter Visit Diagnoses Not on filedocumented in this encounter Care Teams Regional Sales Leader Relationship Specialty Start Date End Date Lurdes Thomas MD PCP - General Internal Medicine 06/11/14 12/16/20 documented as of this encounter
--- OUTSIDE RECORDS SUMMARY | 2022-01-28 10:58 | XMS_ITS | Encounter Summary ---
:1955 Author Organization [place] Address [address] [facility] [place] [address] Care Team Providers Name Role Phone Lurdes Thomas MD Primary Care Provider [phone] Encounter Details Date Type Department Care Team Description 07/18/2014 Hospital Encounter [facility] Imaging [address] [facility]. [place] [phone] Social History Tobacco Use Types Packs/Day Years [...] Take 1 capsule 8 capsule 0 06/1208/01/2014 45151 UNIT (50,000 Units) by capsuleIndications: mouth every [...] 11:24 AM R esults for this ABDOMEN SKIN CARE CONSULTANT procedure are i n the results section. documented in this encounter Results MR Digital Archive Non-[place] (05/26/2014 11:24 AM SKIN CARE CONSULTANT) Specimen (Source) Anatomical Location Collection Method / Collectio n Time Received Time / Laterality Volume Narrative RADI[facility] - 07/18/2014 11:24 AM SKIN CARE CONSULTANT <!--EPICS-->Digitized exam for comparison only; no results available<!--EPICE--> Radiology Non-Fv Credentialed Provider IMG EXTERNAL IM AGING ORDERABLES Performing Organization Address City/State/ZIP Code Phon e Number [facility] documented in this encounter Visit Diagnoses Not on filedocumented in this encounter Care Teams Glass Cleaning Machine Tender Relationship Specialty Start Date End Date Lurdes Thomas MD PCP - General Internal Medicine 06/11/14 12/16/20 documented as of this encounter
--- OUTSIDE RECORDS SUMMARY | 2022-01-28 10:58 | XMS_ITS | Encounter Summary ---
:1955 Author Organization [place] Address [address] [place] [address]. [place] [address] Care Team Providers Name Role Phone Lurdes Thomas MD Primary Care Provider [phone] Reason for Visit (Routine) - Closed Specialty Diagnoses / Procedures Referred By Contact Refer red To Contact Respiratory Therapy Diagnoses Hgb 15.4 drawn on 06/11/14 Rh Respiratory Ther Procedures PULMONARY FUNCTION TEST [address] [place] [address] Phone: Referral ID Status Reason Start Date Expiration Date Visits Requ ested Visits Authorized [id number] Closed 07/04/2014 07/04/2015 1 1 Encounter Details Date Type Department Care Team Description 07/08/2014 Hospital Encounter [facility] Lurdes Riosinson disease (H); Tere Laughlin MD SOB (shortness of breath) Therapy [facility] [address] [place], [place] [address] [address] [phone] [place] [address] Social History Tobacco Use Types [...] Take 1 capsule 8 capsule 0 06/1208/01/2014 47891 UNIT (50,000 Units) by capsuleIndications: mouth every [...] 06/11/14. July 08, 2014.12:39 PM Shemar Hoang NUE INSPECTOR documented in this encounter Procedure Notes Juice Chanel MD - 07/09/2014 1:16 PM CSTAssociated Order(s): PULMONARY FUNCTION TEST Please see medical chart for graphs and statistics related to this report. REFERRING PHYSICIAN: Deidre Pang VOCATIONAL TRAINING INSTRUCTOR: Shemar Hoang DIAGNOSIS: SOB, Parkinson's disease HEIGHT: [...] CHANEL MD MT: Name: DEIDRE PANG Account: [id number] : 1955 Procedure Date: 07/08/2014 Document: [id number] cc: Lurdes Thomas MD documented in this encounter Plan of Treatment Pending Results Name Type Priority Associated Diagnoses Date/Ti me PULMONARY FUNCTION TEST PFT Routine Parkinso n disease (H) 07/08/2014 11:58 AM REVENUE INSPECTOR PROCEDURE SOB (shortness of breath) documented as of this encounter Procedures Procedure Name Priority Date/Time Associated Diagnosis Comme nts PFT GENERAL LAB 07/28/2014 1:58 PM Result s for this TESTING CDT procedure are i n the results section. PFT GENERAL LAB Routine 07/08/2014 11:58 AM Parkinson disease TESTING REVENUE INSPECTOR (H) SOB (shortness of breath) PULMONARY FUNCTION 07/08/2014 12:00 AM TEST - HIM SCAN REVENUE INSPECTOR documented in this encounter Results PULMONARY FUNCTION TEST (07/28/2014 1:58 PM CDT) Transcriptions Juice Chanel MD - 07/09/2014 1:16 PM CST Please see medical chart for graphs and statistics related to this report. REFERRING PHYSICIAN: Deidre Pang VOCATIONAL TRAINING INSTRUCTOR: Shemar Hoang DIAGNOSIS: SOB, Parkinson's disease HEIGHT: [...] CHANEL MD MT: Name: DEIDRE PANG Account: [id number] : 1955 Procedure Date: 07/08/19 Document: [id number] cc: Lurdes Thomas MD Juice Chanel MD PFT ORDERABLES PULMONARY FUNCTION TEST - HIM SCAN (07/08/2014 12:00 AM REVENUE INSPECTOR) Specimen (Source) Anatomical Location Collection Method / Collectio n Time Received Time / Laterality Volume 07/08/2014 Narrative This result has an attachment that is no t available. Provider Scan PFT ORDERABLES documented in this encounter Visit Diagnoses Diagnosis Parkinson disease (H) Paralysis agitans SOB (shortness of breath) Shortness of breath documented in this encounter Care Teams Padding Gluer Relationship Specialty Start Date End Date Lurdes Thomas MD PCP - General Internal Medicine 06/11/14 12/16/20 documented as of this encounter
--- OUTSIDE RECORDS SUMMARY | 2022-01-28 10:58 | XMS_ITS | Encounter Summary ---
:1955 Author Organization [place] Address [address] [facility] [place] [address] Care Team Providers Name Role Phone Lurdes Thomas MD Primary Care Provider [phone] Encounter Details Date Type Department Care Team Description 07/08/2014 Medical Correspondence [facility], Non-Provider NEUROLOG Y-ORDER-2/ Health Info [facility] 11/2014 Srvcs [address] [place] [address] Social History Tobacco Use Types [...] on filedocumented in this encounter Care Teams Acute Dialysis Registered Nurse Relationship Specialty Start Date End Date Lurdes Thomas MD PCP - General Internal Medicine 06/11/14 12/16/20 documented as of this encounter
--- OUTSIDE RECORDS SUMMARY | 2022-01-28 10:58 | XMS_ITS | Encounter Summary ---
:1955 Author Organization [place] Address [address] [place] [address]. [place] [address] Care Team Providers Name Role Phone Lurdes Thomas MD Primary Care Provider Reason for Visit Reason Onset Date Comments Refill Request 08/20/2014 PRAVASTATIN 80MG Encounter Details Date Type Department Care Team Description 08/20/2014 Refill [facility] Eag Lurdes Rojas Refill Request 14[address] [facility] MD [place] (PRAVASTATIN 80MG) [place] [address] [facility] [phone] [place] [address] (Wo rk) Social History Tobacco Use [...] hyperlipidemia documented in this encounter Care Teams C.O.D. Biller Relationship Specialty Start Date End Date Lurdes Thomas MD PCP - General Internal Medicine 06/11/14 12/16/20 documented as of this encounter
--- OUTSIDE RECORDS SUMMARY | 2022-01-28 10:58 | XMS_ITS | Encounter Summary ---
:1955 Author Organization [place] Address [address] [facility] [place] [address] Care Team Providers Name Role Phone Lurdes Thomas MD Primary Care Provider [phone] Reason for Visit (Routine) - Closed Specialty Diagnoses / Procedures Referred By Contact Refer red To Contact Radiology / Radiology. Diagnoses R#NA, BC, Epic Order Sh Mri Procedures MR BRAIN WWO [address] [place] [address] Phone: Referral ID Status Reason Start Date Expiration Date Visits Requ ested Visits Authorized [id number] Closed 07/28/2014 07/28/2015 1 1 Encounter Details Date Type Department Care Team Description 08/26/2014 Hospital Encounter [facility] Rachel Cuadra rkinson's disease [facility], STIFF LEG DERRICK OPERATOR ADVICE CLERK (H) [address] [place] [address] ORTHOPEDICS [phone] [place] [address] [place], [place] [address] Social History Tobacco Use Types Packs/Day Years [...] Take 1 capsule 4 capsule 2 08/2602/12/2015 29792 UNIT (50,000 Units) by capsuleIndications: Vitamin mouth [...] planning purposes. COMPARISON: Diagnostic brain MRI from [facility] 05/26/2014. FINDINGS: The ventricles are normal [...] planning purposes. COMPARISON: Diagnostic brain MRI from [facility] 05/26/2014. FINDINGS: The ventricles are normal in s ize. There is no midline shift. There are no extra-axial fluid co llections. There is no evidence for intracranial hemorrhage. IMPRESSION IMPRESSION: Treatment planning brain MRI images with no evidence for acute intracranial pathology. BETTY CLOUD MD Rachel Cuadra STIFF LEG DERRICK OPERATOR ADVICE CLERK IMG MRI ORDERABLES documented in this encounter [...] MRI. documented in this encounter Care Teams Anode Adjuster Relationship Specialty Start Date End Date Lurdes Thomas MD PCP - General Internal Medicine 06/11/14 12/16/20 documented as of this encounter
--- OUTSIDE RECORDS SUMMARY | 2022-01-28 10:58 | XMS_ITS | Encounter Summary ---
:1955 Author Organization [place] Address [address] [place] [address]. [place] [address] Care Team Providers Name Role Phone Lurdes Thomas MD Primary Care Provider [phone] Reason for Visit Reason Comments Neurologic Problem DBS Consult Encounter Details Date Type Department Care Team Description 07/17[facility]2014 [facility] [address] [facility] [address] [place], [place] [address] Parkinson's disease [facility] Rachel Cuadra APRN [employer] [facility] [address] [facility] [address] [place], [place] [address] (H) (Primary Dx) [address] [address] Social History Tobacco Use Types [...] Comments Blood Pressure 124/81 07/17/2014 9:15 AM DIRECTOR PHARMACOLOGY Pulse 94 07/17/2014 9:15 AM DIRECTOR PHARMACOLOGY Temperature 36.6 ??C (97.8 ??F) 07/17/2014 9:15 AM DIRECTOR PHARMACOLOGY Respiratory Rate - - Oxygen Saturation 94% 07/17/2014 9:15 AM DIRECTOR PHARMACOLOGY Inhaled Oxygen Concentration - - Weight 99.1 kg (218 lb 6.4 oz) 07/17/2014 9:15 AM DIRECTOR PHARMACOLOGY Height 185.4 cm (6' 1) 07/17/2014 9:15 AM DIRECTOR PHARMACOLOGY Body Mass Index 28.81 07/17/2014 9:15 AM DIRECTOR PHARMACOLOGY documented in this encounter Patient Instructions Patient [...] no sleep medications the night before surgery CTOR PHARMACOLOGY documented in this encounter Progress Notes Rachel Cuadra APRN CNP - 07/17/2014 9:22 AM CST [facility] Neurosurgery Consult Note CC: Tremors and legs are lockingup Primary care Provider: Lurdes Thomas Referring provider: Dr. Maria Esther Phan HPI: Andrew Pang is a 59 year old male with a history of Parkinsons disease. He was diagnosed in August of 2007. He has been treating at the [facility] as well as Dr. Phan. [...] up at night. 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 He was [...] Outpatient Prescriptions Medication ??? vitamin D (ERGOCALCIFEROL) 39995 UNIT capsule ??? rotigotine (NEUPRO) 8 MG/24HR [...] Onset ??? Cardiovascular Mother CVA x4 and SC, s/p CABG in mid-late 60's ??? Cardiovascular Father SC, s/p CABG in mid-late 60's ??? Diabetes [...] of Parkinson's disease. [facility] [...] agreement with recommendations and plan. Rachel Cuadra [facility] [address] [place] [address] Pager [phone] Jordana Kline - 07/17/2014 9:18 AM CST [...] a DBS consult(Parkinsons) - referred by Dr. Phan([place]) 5 nursing intake time Jordana Kline CMA Discharge plan: Patient given After Visit Summary. He will be scheduled for Bilateral DBS 2 nursing discharge time Jordana Kline CMA signature CTOR PHARMACOLOGY documented in this encounter Plan of Treatment [...] abnormality. FAMILIA GUILLERMO MD Rachel Cuadra APRN [facility] CT ORDERABLES MR Brain w/o & w [...] purposes. COMPARISON: Diagnostic brain MRI from [facility] 05/26/2014. FINDINGS: The ventricles [...] purposes. COMPARISON: Diagnostic brain MRI from [facility] 05/26/2014. FINDINGS: The ventricles are normal in s ize. There is no midline shift. There are no extra-axial fluid co llections. There is no evidence for intracranial hemorrhage. IMPRESSION IMPRESSION: Treatment planning brain MRI images with no evidence for acute intracranial pathology. BETTY CLOUD MD Rachel Cuadra APRN [employer] IMG MRI ORDERABLES documented in this encounter Visit Diagnoses Diagnosis Parkinson's disease (H) - Primary Paralysis agitans Parkinson's disease (H) Paralysis agitans Parkinson's disease (H) Paralysis agitans documented in this encounter Care Teams Lead Java J2Ee Developer Relationship Specialty Start Date End Date Lurdes Thomas MD PCP - General Internal Medicine 06/11/14 12/16/20 documented as of this encounter
--- OUTSIDE RECORDS SUMMARY | 2022-01-28 10:58 | XMS_ITS | Encounter Summary ---
:1955 Author Organization [place] Address [address] [facility] [place] [address] Care Team Providers Name Role Phone Lurdes Thomas MD Primary Care Provider [phone] Reason for Visit (Routine) - Closed Specialty Diagnoses / Procedures Referred By Contact Refer red To Contact Radiology / Radiology. Procedures Nuclear Medicine NM MPI WITH LEXISCAN [address] [place] [address] Phone: Fax: Referral ID Status Reason Start Date Expiration Date Visits Requ ested Visits Authorized [id number] Closed 06/20/2014 12/17/2014 1 1 Encounter Details Date Type Department Care Team Description 06/25/2014 Hospital Encounter [facility] Lurdes Thomas MD [address] [facility] [address] 8675 [facility] [phone] [place], [place] [address] (Wo rk) Social History [...] Take 1 capsule 8 capsule 0 06/1208/01/2014 58605 UNIT (50,000 Units) by capsuleIndications: mouth every [...] (shortness of Resu lts for this LEXISCAN BORING MACHINE SET UP OPERATOR JIG breath) procedure are i n the results section. documented in this encounter Visit Diagnoses Not on filedocumented in this encounter Administered Medications Inactive Administered Medications - up to 3 most recent administrations Medication Order MAR Action Action Date Dose Rate Site technetium Tc 99m tetrofosmin 2UD Given 06/25/2014 1:04 PM BORING MACHINE SET UP OPERATOR JIG 3 0 mCi study (MYOVIEW) radioisotope injection 3-42 mCi 3-42 mCi, Intravenous, EVERY 2 HOURS, First dose on Mon06/25/14 at 1015, For 2 doses, Radioisotope, supplied by and administered by Nuclear Medicine. *HW* Given 06/25/2014 10:09 AM BORING MACHINE SET UP OPERATOR JIG 10.4 mCi documented in this encounter Care Teams Nuclear Reactor Technician Relationship Specialty Start Date End Date Lurdes Thomas MD PCP - General Internal Medicine 06/11/14 12/16/20 documented as of this encounter
--- OUTSIDE RECORDS SUMMARY | 2022-01-28 10:58 | XMS_ITS | Encounter Summary ---
:1955 Author Organization [place] Address [address] [facility] [place] [address] Care Team Providers Name Role Phone Lurdes Thomas MD Primary Care Provider [phone] Reason for Visit (Routine) - Closed Specialty Diagnoses / Procedures Referred By Contact Refer red To Contact Radiology / Radiology. Procedures Nuclear Medicine NM SCAN3 [address] [place] [address] Phone: Fax: Referral ID Status Reason Start Date Expiration Date Visits Requ ested Visits Authorized [id number] Closed 06/20/2014 12/17/2014 1 1 Encounter Details Date Type Department Care Team Description 06/25/2014 Hospital Encounter [facility] Lurdes Thomas MD [address] [facility] [address] [address] [facility] [phone] [place], [place] [address] (Wo rk) Social History [...] Take 1 capsule 8 capsule 0 06/1208/01/2014 81170 UNIT (50,000 Units) by capsuleIndications: mouth every [...] (shortness of Resu lts for this LEXISCAN MEDICAL AUDITOR breath) procedure are i n the results section. documented in this encounter Visit Diagnoses Not on filedocumented in this encounter Care Teams Dehydrogenation Supervisor Relationship Specialty Start Date End Date uLrdes Thomas MD PCP - General Internal Medicine 06/11/14 12/16/20 documented as of this encounter
--- OUTSIDE RECORDS SUMMARY | 2022-01-28 10:58 | XMS_ITS | Encounter Summary ---
:1955 Author Organization [facility] Address [address] [place] [address]. [place] [address] Care Team Providers Name Role Phone Lurdes Thomas MD Primary Care Provider [phone] Reason for Visit Reason Comments Pre-Op Exam Encounter Details Date Type Department Care Team Description 08/11/2014 Office Visit [facility] Lurdes Thomasop gen eral physical exam (Primary Dx); Uzair Laughlin MD Parkinson disease (H); [address]; [place] [address] [place] Acute bronchitis [phone] [place], [place] [address] Social History Tobacco Use Types Packs/Day [...] Thomas MD - 08/11/2014 2:01 PM CDT [address] [address] Dept: [phone] PRE-OP EVALUATION: Today's date: 08/11/2014 Andrew Pang (: 1955) presents for pre-operative evaluation assessment as requested by . He requires evaluation and anesthesia risk assessment prior to undergoing surgery/procedurefor treatment of Parkinson's . Proposed procedure: Deep Brain Stimulator insertion Date of Surgery/ Procedure: 09/09 Time of Surgery/ Procedure: 529 Hospital/Surgical [facility]: [facility] Primary Physician: Lurdes Thomas Type [...] cardiovascular risks for perioperative complications such as (MT, PE, VFib and 3?? AV Block): No [...] evaluation report is provided to requesting physician. [facility] Preop Guidelines documented in this encounter Nursing [...] bronchitis documented in this encounter Care Teams Railway Engineer Relationship Specialty Start Date End Date Lurdes Thomas MD PCP - General Internal Medicine 06/11/14 12/16/20 documented as of this encounter
--- OUTSIDE RECORDS SUMMARY | 2022-01-28 10:58 | XMS_ITS | Encounter Summary ---
:1955 Author Organization [facility] Address [address] [place] [address]. [place] [address] Care Team Providers Name Role Phone Lurdes Thomas MD Primary Care Provider [phone] Reason for Referral Consultation - Closed Specialty Diagnoses / Procedures Referred By Contact Refer red To Contact Diagnoses Dyspnea on exertion Lurdes Thomas [facility] [address] [place], [place] [address] [facility] [address] [place] [address] Referral ID Status Reason Start Date Expiration Date Visits Requ ested Visits Authorized [id number] Closed 07/10/2014 01/06/2015 1 1 HYPERBARIC Encounter Details Date Type Department Care Team Description 07/10/2014 Orders Only [facility] Eag an Lurdes Thomas Dyspnea on exertion [address] Demian Laughlin MD (Primary Dx) [place] [address] [facility] [phone] [address] [place] [address] Social History Tobacco Use Types [...] Priority Associated Diagnoses Order S [facility] PULMONARY MEDICINE Referral Routine Dyspnea on exertion Or dered: 07/10/2014 REFERRAL documented as of this encounter Visit Diagnoses Diagnosis Dyspnea on exertion - Primary Other dyspnea and respiratory abnormalit y documented in this encounter Care Teams Hand Wood Sander Relationship Specialty Start Date End Date Lurdes Thomas MD PCP - General Internal Medicine 06/11/14 12/16/20 documented as of this encounter
--- OUTSIDE RECORDS SUMMARY | 2022-01-28 10:58 | XMS_ITS | Encounter Summary ---
:1955 Author Organization [place] Address [address] [facility] [place] [address] Care Team Providers Name Role Phone Lurdes Thomas MD Primary Care Provider [phone] Reason for Visit (Routine) - Closed Specialty Diagnoses / Procedures Referred By Contact Refer red To Contact Radiology / Radiology. Procedures Nuclear Medicine NM INJ [address] [place] [address] Phone: Fax: Referral ID Status Reason Start Date Expiration Date Visits Requ ested Visits Authorized [id number] Closed 06/20/2014 06/20/2015 1 1 Encounter Details Date Type Department Care Team Description 06/25/2014 Hospital Encounter [facility] Lurdes Thomas MD [address] [facility] [address] [facility] [phone] [place], [place] [address] (Wo rk) Social History [...] Take 1 capsule 8 capsule 0 06/1208/01/2014 25311 UNIT (50,000 Units) by capsuleIndications: mouth every [...] (shortness of Resu lts for this LEXISCAN ORDER FILLER breath) procedure are i n the results section. documented in this encounter Visit Diagnoses Not on filedocumented in this encounter Care Teams Chopping Machine Operator Relationship Specialty Start Date End Date Lurdes Thomas MD PCP - General Internal Medicine 06/11/14 12/16/20 documented as of this encounter
--- OUTSIDE RECORDS SUMMARY | 2022-01-28 10:58 | XMS_ITS | Encounter Summary ---
:1955 Author Organization [place] Address [address] [place] [address]. [place] [address] Care Team Providers Name Role Phone Lurdes Thomas MD Primary Care Provider [phone] Reason for Visit Reason Onset Date Comments Other 07/21/2014 Pt. needs letter Encounter Details Date Type Department Care Team Description 07/21/2014 Telephone [facility] Gonzalez [place] Other (Pt . needs Neurosurgery Clinic MD Tylor letter) See XX RESIGNED XX [address] [place] [address] [place] [address] [place] [address] [place] [address] [phone] Social History Tobacco Use Types Packs/Day Years [...] To discuss a letter he needs? Thanks F OPHTHALMIC TECHNICIAN documented in this encounter Plan of Treatment Not on filedocumented as of this encounter Visit Diagnoses Not on filedocumented in this encounter Care Teams Sourcing Assistant Relationship Specialty Start Date End Date Lurdes Thomas MD PCP - General Internal Medicine 06/11/14 12/16/20 documented as of this encounter
--- OUTSIDE RECORDS SUMMARY | 2022-01-28 10:58 | XMS_ITS | Encounter Summary ---
:1955 Author Organization [place] Address [address] [place] [address]. [place] [address] Care Team Providers Name Role Phone Lurdes Thomas MD Primary Care Provider [phone] Reason for Visit Reason Comments Pre-Op Exam Encounter Details Date Type Department Care Team Description 08/25/2014 Office Visit [facility] Lurdes Thomasop gen eral physical exam (Primary Dx); Uzair Laughlin MD Parkinson disease (H); [address] [employer] Bilateral leg edema; [place] [address] PURLEAR Leg swelling; [phone] 86[address] [facility] Vitamin D deficiency disease [address] [place], [place] [address] Social History Tobacco Use [...] Thomas MD - 08/25/2014 12:38 PM CDT [address] [address] Dept: [phone] PRE-OP EVALUATION: Today's date: 08/25/2014 Andrew Pang (: 1955) presents for pre-operative evaluation assessment as requested by . He requires evaluation and anesthesia risk assessment prior to undergoing surgery/procedurefor treatment of Parkinson's . Proposed procedure: Deep brain stimulator implant Date of Surgery/ Procedure: 09/09& Time of Surgery/ Procedure: 529 Hospital/Surgical Facility: [facility] Primary Physician: Lurdes Thomas Type of [...] D 25 (L) 30 - 75 [facility] [place], operated by [facility] ug/L [place] [facility] Comment: Season, race, dietary intake, and treatm ent affect the concentration of 75-jfoxaxt-Ilqwmyp D. Values may decrea se during winter [...] Organization Address City/State/ZIP Code Phon e Number [facility] [address] [place] [address] [facility] (ABNORMAL) Basic metabolic panel (08/25/2014 1:08 PM CDT) Analysis Performed At [facility] logist Time Signature Sodium 137 133 - 144 [place] mmol/L [facility] Potassium 3.5 3.4 - 5.3 [place] mmol/L [facility] Chloride 100 94 - 109 [place] mmol/L [facility] Carbon Dioxide 28 20 - 32 [place] mmol/L [facility] Anion Gap 9 3 - 14 [place] mmol/L [facility] Glucose 132 (H) 70 - 99 [place] mg/dL [facility] Comment: Effective 12/18/2013, the reference range for this assay has changed to reflect new instrumentation/methodology. Urea Nitrogen 18 7 - 30 mg/dL [facility] Comment: Effective 12/18/2013, the reference range for this assay has changed to reflect new instrumentation/methodology. Creatinine 0.77 0.66 - 1.25 [facility] mg/dL [facility] GFR Estimate >90 >60 mL/min/1.7m2 [facility] Non GFR Calc [facility] GFR Estimate If Black >90 >60 mL/min/1.7m2 F [facility] GFR Calc [facility] Calcium 9.3 8.5 - 10.1 mg/dL [facility] Comment: Effective 12/18/2013, the reference range for this assay has changed to reflect new instrumentation/methodology. Specimen Anatomical Collection Method Collection Time Receive d Time (Source) Location / / Volume Laterality Blood specimen 08/25/2014 1:08 PM 015 1:09 (specimen) CDT PM CDT Lurdes Thomas MD LAB - BLOOD ORDERABLES Performing Organization Address City/State/ZIP Code Phon e Number [facility] [address] [place] [address] documented in this encounter Visit Diagnoses Diagnosis Preop general physical exam - Primary Other specified pre-operative examinatio n Parkinson disease (H) Paralysis agitans Bilateral leg edema Edema Leg swelling Swelling of limb Vitamin D deficiency disease Unspecified vitamin D deficiency documented in this encounter Care Teams Animal Pathology Teacher Relationship Specialty Start Date End Date Lurdes Thomas MD PCP - General Internal Medicine 06/11/14 12/16/20 documented as of this encounter
--- OUTSIDE RECORDS SUMMARY | 2022-01-28 10:58 | XMS_ITS | Encounter Summary ---
:1955 Author Organization [place] Address [address] [place] [address]. [place] [address] Care Team Providers Name Role Phone Lurdes Thomas MD Primary Care Provider [phone] Reason for Visit (Routine) - Closed Specialty Diagnoses / Procedures Referred By Contact Refer red To Contact Cardiology Procedures Zzrh Electrocardiology EKG STRESS NM LEXISCAN [address] [place], [place] [address] Phone: Referral ID Status Reason Start Date Expiration Date Visits Requ ested Visits Authorized [id number] Closed 06/19/2014 06/19/2015 1 1 Encounter Details Date Type Department Care Team Description 06/25/[address] [facility] Lurdes Thomas SOB (shortness of Electrocardiolgy MD [place] breath) [address] [facility] [address] [place] [address] [place] [address] Social History Tobacco Use Types [...] Take 1 capsule 8 capsule 0 06/1208/01/2014 84213 UNIT (50,000 Units) by capsuleIndications: mouth every [...] adverse reactions to catarino injection. Rachel Segura ERO documented in this encounter Plan of Treatment Not on filedocumented as of this encounter Procedures Procedure Name Priority Date/Time Associated Diagnosis Comme nts NM MPI WITH Routine 06/25/2014 1:06 PM SOB (shortness of Resu lts for this LEXISCAN ZAN[facility]ERO breath) procedure are i n the results section. documented in this encounter Results NM Lexiscan stress test (06/25/2014 1:06 PM ZANJERO) Anatomical Region Laterality Modality Chest Nuclear Medicine Specimen (Source) Anatomical Location Collection Method / Collectio n Time Received Time / Laterality Volume Narrative 06/26/2014 10:06 AM ZANJERO GATED MYOCARDIAL PERFUSION SCINTIGRAPHY WITH INTRAVENOUS PHARMACOLOGIC [...] (LEXISCAN) 0.4 MG/5ML Given 06/25/2014 11:30 AM ZANJERO injection Starting on Mon06/25/14 at 1148, For 1 dose, RACHEL SEGURA: cabinet override documented in this encounter Care Teams Director Dermatology Relationship Specialty Start Date End Date Lurdes Thomas MD PCP - General Internal Medicine 06/11/14 12/16/20 documented as of this encounter
--- OUTSIDE RECORDS SUMMARY | 2022-01-28 10:59 | XMS_ITS | Encounter Summary ---
:1955 Author Organization [place] Address [address] [place] [address]. [place] [address] Care Team Providers Name Role Phone Unavailable Primary Care Provider Unavailable Reason for Visit Reason Onset Date Comments Outreach 04/04/2013 Preventative health screening Encounter Details Date Type Department Care Team Description 04/04/2013 Telephone [facility] Eag Lurdes Rojas Outreach (Preventative 1440 [facility] MD [place] health screening) [place] [address] [facility] Gurnard Perch [employer] [phone] [address] (Wo rk) Social History Tobacco [...] Comments: Per patient, he has swtiched to [facility] due to insurance change, [facility]. Outreach Secondary Market Manager Charanjit Amaro ULTING SOFTWARE ENGINEER documented in this encounter Plan of Treatment Not on filedocumented as of this encounter Visit Diagnoses Not on filedocumented in this encounter
--- OUTSIDE RECORDS SUMMARY | 2022-01-28 10:59 | XMS_ITS | Encounter Summary ---
:1955 Author Organization [place] Address [address] [place] [address]. [place] [address] Care Team Providers Name Role Phone Lurdes Thomas MD Primary Care Provider Encounter Details Date Type Department Care Team Description 03/15/[address] [facility] Lurdes Thomas of [facility] MD [place] extremity, right [address] [facility] [address] [place] [address] [place] [address] Social History Tobacco Use Types [...] limb documented in this encounter Care Teams Department Store Manager Relationship Specialty Start Date End Date Lurdes Thomas MD PCP - General Internal Medicine 04/12/10 04/03/13 documented as of this encounter
--- OUTSIDE RECORDS SUMMARY | 2022-01-28 10:59 | XMS_ITS | Encounter Summary ---
:1955 Author Organization [employer] Address [address] [place] [address]. [place] [address] Care Team Providers Name Role Phone Lurdes Thomas MD Primary Care Provider Reason for Visit Reason Onset Date Comments Lab Result Notice 07/28/2011 Encounter Details Date Type Department Care Team Description 07/28/2011 Telephone [facility] Eag an Lurdes Thomas Lab Result Notice 1440 [facility] [place] [address] [facility] [phone] [address] (Wo rk) Social History [...] Lurdes Laughlin MD - 07/28/2011 9:25 PM INSPECTOR RUBBER STAMP DIE LDL not at goal, needs increased dose. Lurdes Laughlin MD Internal Medicine/Pediatrics ECTOR RUBBER STAMP DIE documented in this encounter Plan of Treatment Not on filedocumented as of this encounter Visit Diagnoses Diagnosis Hyperlipidemia LDL goal < 130 - Primary Other and unspecified hyperlipidemia documented in this encounter Care Teams Facility Environmental Technician Relationship Specialty Start Date End Date Lurdes Thomas MD PCP - General Internal Medicine 04/12/10 04/03/13 documented as of this encounter
--- OUTSIDE RECORDS SUMMARY | 2022-01-28 10:59 | XMS_ITS | Encounter Summary ---
:1955 Author Organization [place] Address [address] [place] [address]. [place] [address] Care Team Providers Name Role Phone Lurdes Thomas MD Primary Care Provider [phone] Reason for Visit Reason Onset Date Comments Back Pain 07/11/2011 3 day follow up Encounter Details Date Type Department Care Team Description 07/11/2011 Refill [facility] Lurdes Oh Back Pain (3 day follow 1440 [facility] MD [place] up) [place] [address] [facility] [phone] [address] (Wo rk) Social History [...] to correct posture; stop aggravating activities. ?? Delg-tva-tzqeadl pain medications for short term symptom control. [...] provider immediately. Medications for Pain Relief Recommended ejin-csc-zklcczx non-steroidal anti-inflammatories: Ibuprofen (Advil, Motrin) 600 mg. [...] this several times a day. Developed by [employer] Published by [employer]. Last modified: 2008-06-29 Last reviewed: 2007-11-26 This content is reviewed periodically and is subject to change as new health information becomes available. The information is intended to inform and educate and is not a replacement for medical evaluation, advice, diagnosis or treatment by a healthcare professional. Adult Health Advisor 2009.1 Index Adult Health Advisor 2009.1 Credits ?? 2009 [facility] and/or its affiliates. All Rights Reserved. OTEL OPERATOR documented in this encounter Miscellaneous Notes Telephone [...] of plan and is agreeable. Blanca Brandt OTEL OPERATOR Telephone Encounter - Blanca Brandt - 07/11/2011 10:18 AM CST Called and spoke with patient and informed of message from Dr. Laughlin below. Mailed back exercises.Patient is wanting to hold off on physical therapy at this time. Kristina Brandt RN OTEL OPERATOR Telephone Encounter - Nathalia Galvan - 07/11/2011 9:50 AM CST Called and LM for pt with message below. Nathalia Galvan MA OTEL OPERATOR Telephone Encounter - Lurdes Laughlin MD - 07/11/2011 9:08 AM HYDROTEL OPERATOR Ibuprofen or naproxen are ok. Flexeril has potential interaction with azilect. I changed muscle relaxant to methocarbamol (robaxin) and sent to pharmacy. This also may make him sleepy. Please let patient know. Thanks, Lurdes Laughlin MD Internal Medicine/Pediatrics OTEL OPERATOR Telephone Encounter - Blanca Brandt - 07/11/2011 8:32 AM CST Images from the original note were not included. Patient calls stating he was bending over to clean [place] box yesterday morning and had back pain. [...] to correct posture; stop aggravating activities. ?? Cihu-nsy-kvkimky pain medications for short term symptom control. [...] provider immediately. Medications for Pain Relief Recommended pyet-zac-kqhbfoc non-steroidal anti-inflammatories: Ibuprofen (Advil, Motrin) 600 mg. [...] this several times a day. Developed by [employer] Published by [employer]. Last modified: 2008-06-29 Last reviewed: 2007-11-26 This content is reviewed periodically and is subject to change as new health information becomes available. The information is intended to inform and educate and is not a replacement for medical evaluation, advice, diagnosis or treatment by a healthcare professional. Adult Health Advisor 2009.1 Index Adult Health Advisor 2009.1 Credits ?? 2009 [facility] and/or its affiliates. All Rights Reserved. OTEL OPERATOR documented in this encounter Plan of Treatment Not on filedocumented as of this encounter Visit Diagnoses Diagnosis Back muscle spasm - Primary Other symptoms referable to back documented in this encounter Care Teams Telephone Cleaner Relationship Specialty Start Date End Date Lurdes Thomas MD PCP - General Internal Medicine 04/12/10 04/03/13 documented as of this encounter
--- OUTSIDE RECORDS SUMMARY | 2022-01-28 10:59 | XMS_ITS | Encounter Summary ---
:1955 Author Organization [place] Address [address] [place] [address]. [place] [address] Care Team Providers Name Role Phone Lurdes Thomas MD Primary Care Provider [phone] Reason for Visit Reason Onset Date Comments Medication Request 10/24/2011 robaxin Encounter Details Date Type Department Care Team Description 10/24/2011 Telephone [facility] Eag Lurdes Rojas Medication Request 1440 [facility] MD [place] (robaxin) [place] [address] [facility] [phone] [address] (Wo rk) Social History Tobacco Use [...] filedocumented in this encounter Care Teams Tank Cooper Relationship Specialty Start Date End Date Lurdes Thomas MD PCP - General Internal Medicine 04/12/10 04/03/13 documented as of this encounter
--- OUTSIDE RECORDS SUMMARY | 2022-01-28 10:59 | XMS_ITS | Encounter Summary ---
:1955 Author Organization [place] Address [address] [place] [address]. [place] [address] Care Team Providers Name Role Phone Lurdes Thomas MD Primary Care Provider [phone] Reason for Visit Reason Comments Refill Request lab draw Encounter Details Date Type Department Care Team Description 09/20/2012 Office Visit [facility] Lurdes Thomas Hyperlipi demkatlyn LDL goal < 130 (Primary Dx); Uzair Laughlin MD Parkinson disease (H); 1440 [facility] Prediabetes; [place] [address] [facility] Screening for diabetes mellitus; [phone] 8675 [facility] [place] [address] Social History Tobacco Use Types Packs/Day Years [...] Body Mass Index 23.75 07/27/2011 10:04 AM TRANSIT VEHICLE INSPECTOR documented in this encounter Patient Instructions [...] list, Allergies, and Medical/Social/Surgical histories reviewed in [facility] andupdated as appropriate. OBJECTIVE: BP 112/62 Pulse [...] Provider - 1 year Lurdes Thomas MD [facility] documented in this encounter Nursing [...] athologist Signature Sodium 139 133 - 144 [place] [facility] mmol/L [facility] Potassium 4.6 3.4 - 5.3 [place] [facility] mmol/L [facility] Chloride 101 94 - 109 [place] [facility] mmol/L [facility] Carbon Dioxide 31 20 - 32 [place] [facility] mmol/L [facility] Anion Gap 7 6 - 17 [place] [facility] mmol/L [facility] Glucose 104 (H) 60 - 99 [facility] mg/dL CLINIC LAB Comment: Fasting specimen Urea Nitrogen 24 7 - 30 mg/dL [facility] N [facility] Creatinine 0.94 0.66 - 1.25 mg/dL [facility] GFR Estimate 83 >60 mL/min/1.7m2 [place] [facility] GFR Estimate If Black >90 >60 mL/min/1.7m2 F [facility] Calcium 8.8 8.5 - 10.4 mg/dL [facility] Bilirubin Total 1.0 0.2 - 1.3 mg/dL [facility] LAB Albumin 4.1 3.3 - 4.9 g/dL [facility] Comment: Reference range changed on 01/21. Protein Total 7.0 6.8 - 8.8 g/dL [facility] Comment: As of 07, reference range reflects plasma specimen type. Alkaline Phosphatase 81 40 - 150 U/L [facility] CL[facility] LAB ALT 17 0 - 70 U/L [facility] CLIN IC LAB AST 54 (H) 0 - 45 U/L [facility] CL[facility] IC LAB Specimen Anatomical Collection Method Collection Time Receive d Time (Source) Location / / Volume Laterality Blood specimen 09/20/2012 8:17 AM 013 8:22 (specimen) CDT AM CDT Lurdes Thomas MD LAB - BLOOD ORDERABLES Performing Organization Address City/State/ZIP Code Phon e Number [facility] [address] [place] [address] [facility] LAB [address] [place] [address] Lipid panel reflex to direct LDL (09/20/2012 8:17 AM CDT) athologist Signature Cholesterol 178 0 - 200 [facility] mg/dL CLINIC LAB Comment: LDL Cholesterol is the primary guide to therapy. The NCEP recommends further evaluation of: patients with cholesterol greater than 200 mg/dL if additional risk facto rs are present, cholesterol greater than 240 mg/dL, triglycerides greater than 1 50 mg/dL, or HDL less than 40 mg/dL. Triglycerides 83 0 - 150 mg/dL [facility] HDL Cholesterol 66 40 - 110 mg/dL [facility] LDL Cholesterol Calculated 95 0 - 129 mg/dL [facility] Comment: LDL Cholesterol is the primary guide to therapy: LDL-cholesterol goal in high risk patients is <100 mg/dL and in very high risk patients is <70 mg/dL. VLDL-Cholesterol 17 0 - 30 mg/dL [facility] Cholesterol/HDL Ratio 2.7 0.0 - 5.0 [facility] LAB Specimen Anatomical Collection Method Collection Time Receive d Time (Source) Location / / Volume Laterality Blood specimen 09/20/2012 8:17 AM 013 8:22 (specimen) CDT AM CDT Lurdes Thomas MD LAB - BLOOD ORDERABLES Performing Organization Address City/State/ZIP Code Phon e Number [facility] [address] [place] [address] [facility] [address] [place] [address] documented in this encounter Visit Diagnoses Diagnosis Hyperlipidemia LDL goal < 130 - Primary Other and unspecified hyperlipidemia Parkinson disease (H) Paralysis agitans Prediabetes Other abnormal glucose Screening for diabetes mellitus Screening for colon cancer Special screening for malignant neoplasm s, colon documented in this encounter Care Teams Spool Hauler Relationship Specialty Start Date End Date Lurdes Thomas MD PCP - General Internal Medicine 04/12/10 04/03/13 documented as of this encounter
--- OUTSIDE RECORDS SUMMARY | 2022-01-28 10:59 | XMS_ITS | Encounter Summary ---
:1955 Author Organization [place] Address [address] [place] [address]. [place] [address] Care Team Providers Name Role Phone Lurdes Thomas MD Primary Care Provider [phone] Reason for Referral Referral not Required - Closed Specialty Diagnoses / Procedures Referred By Contact Refer red To Contact Diagnoses Cervical radicular pain Francisco Kitchen MD [facility] [address] [place] [address] [address] [facility] [place] [address] AD[address] OFFICE [place] [address] Phone: [phone] Referral ID Status Reason Start Date Expiration Date Visits Requ ested Visits Authorized [id number] Closed 10/25/2011 04/22/2012 1 1 Reason for Visit Reason Comments Back Pain Encounter Details Date Type Department Care Team Description 10/25/2011 Office Visit [facility] Francisco Kitchen DDD (degene rative disc disease), cervical; Uzair Currie MD Cervical radicular pain [address] [place] [address] [place] [address] [facility] [phone] [place] [address] Social History Tobacco Use [...] Body Mass Index 24.6 07/27/2011 10:04 AM ASSURANCE MANAGER documented in this encounter Patient Instructions [...] nos documented in this encounter Care Teams Software Reliability Engineer Relationship Specialty Start Date End Date Lurdes Thomas MD PCP - General Internal Medicine 04/12/10 04/03/13 documented as of this encounter
--- OUTSIDE RECORDS SUMMARY | 2022-01-28 10:59 | XMS_ITS | Encounter Summary ---
:1955 Author Organization [place] Address [address] [place] [address]. [place] [address] Care Team Providers Name Role Phone Lurdes Thomas MD Primary Care Provider [phone] Encounter Details Date Type Department Care Team Description 06/11/2014 Radiant Appointment [facility] Lurdes Thomas (shortness of Uzair Laughlin MD breath) [address] [place] [facility] [address] [address] [place] [phone] [place] [address] Social History Tobacco Use Types [...] AM SOB (shortness of Results for this WEAVING MACHINE OPERATOR breath) procedure are i n the results section. documented in this encounter Results XR Chest 2 Views (06/11/2014 8:52 AM WEAVING MACHINE OPERATOR) Anatomical Region Laterality Modality Chest Computed Radiography Specimen (Source) Anatomical Location Collection Method / Collectio n Time Received Time / Laterality Volume Impressions 06/11/2014 9:24 AM WEAVING MACHINE OPERATOR IMPRESSION: ??Negative. APOLONIA PACE MD Narrative 06/11/2014 9:24 AM WEAVING MACHINE OPERATOR XR CHEST 2 VW ??06/11/2014 8:52 [...] breath documented in this encounter Care Teams Competitive Intelligence Manager Relationship Specialty Start Date End Date Lurdes Thomas MD PCP - General Internal Medicine 06/11/14 12/16/20 documented as of this encounter
--- OUTSIDE RECORDS SUMMARY | 2022-01-28 10:59 | XMS_ITS | Encounter Summary ---
:1955 Author Organization [facility] Address [address] [place] [address]. [place] [address] Care Team Providers Name Role Phone Lurdes Thomas MD Primary Care Provider [phone] Reason for Visit Reason Onset Date Comments Refill Request 04/11/2011 pravastatin Encounter Details Date Type Department Care Team Description 04/11/2011 Refill [facility] Eag Lurdes Rojas Refill Request 1440 [facility] MD [place] (pravastatin) [place] [address] [facility] [phone] [address] (Wo rk) Social History [...] labs letter sent. Received refill request from [facility] for pravastatin. Last Office Visit R/T [...] comparison chart: [facility] CoA REDUCTASE INHIBITORS (STATINS) IFIED TECHNICIAN documented in this encounter Plan of Treatment Not on filedocumented as of this encounter Visit Diagnoses Diagnosis Hyperlipidemia LDL goal < 130 - Primary Other and unspecified hyperlipidemia documented in this encounter Care Teams Cash On Delivery Clerk Relationship Specialty Start Date End Date Lurdes Thomas MD PCP - General Internal Medicine 04/12/10 04/03/13 documented as of this encounter
--- OUTSIDE RECORDS SUMMARY | 2022-01-28 10:59 | XMS_ITS | Encounter Summary ---
:1955 Author Organization [place] Address [address] [place] [address]. [place] [address] Care Team Providers Name Role Phone Lurdes Thomas MD Primary Care Provider [phone] Reason for Visit Reason Comments Edema right foot and ankle Encounter Details Date Type Department Care Team Description 03/15/2011 Office Visit [facility] Lurdes Thomas Swelling of extremity, Uzair Laughlin MD right (Primary Dx) 1440 [facility] [place] [address] [place] [phone] 8675 [place], [place] [address] Social History Tobacco Use [...] CDT Ultrasound of right leg at 4:15 [facility] [address] [place] [address] Wait for results - will page me [...] about 2 weeks ago. Had traveled to [place] and [place] the week before. Only on right side. [...] lb 4.8 oz (88.587 kg) BMI 25.42 kg/[id number] Body mass index is 25.42 kg/(m^2) as [...] limb documented in this encounter Care Teams Extrusion Engineer Relationship Specialty Start Date End Date Lurdes Thomas MD PCP - General Internal Medicine 04/12/10 04/03/13 documented as of this encounter
--- OUTSIDE RECORDS SUMMARY | 2022-01-28 10:59 | XMS_ITS | Encounter Summary ---
:1955 Author Organization [facility] Address [address] [place] [address]. [place] [address] Care Team Providers Name Role Phone Lurdes Thomas MD Primary Care Provider [phone] Reason for Visit Reason Onset Date Comments Chronic Care Conference Provider Overview 12/29/2010 Encounter Details Date Type Department Care Team Description 12/29/2010 Telephone [facility] Lurdes Oh Chronic Care Conference 1440 [facility] MD [place] Provider Overview [place] [address] [facility] [phone] [address] (Wo rk) Social History Tobacco [...] on filedocumented in this encounter Care Teams Policy Intern Relationship Specialty Start Date End Date Lurdes Thomas MD PCP - General Internal Medicine 04/12/10 04/03/13 documented as of this encounter
--- OUTSIDE RECORDS SUMMARY | 2022-01-28 10:59 | XMS_ITS | Encounter Summary ---
:1955 Author Organization [place] Address [address] [place] [address]. [place] [address] Care Team Providers Name Role Phone Lurdes Thomas MD Primary Care Provider [phone] Reason for Visit Reason Onset Date Comments Results 10/20/2010 Encounter Details Date Type Department Care Team Description 10/20/2010 Telephone [facility] Eag Lurdes Rojas, Results 1440 [facility] [place] [address] [facility] [phone] 8675 [place], [place] [address] (Wo rk) Social History Tobacco Use [...] hyperlipidemia documented in this encounter Care Teams Road Design Engineer Relationship Specialty Start Date End Date Lurdes Thomas MD PCP - General Internal Medicine 04/12/10 04/03/13 documented as of this encounter
--- OUTSIDE RECORDS SUMMARY | 2022-01-28 10:59 | XMS_ITS | Encounter Summary ---
:1955 Author Organization [facility] Address [address] [place] [address]. [place] [address] Care Team Providers Name Role Phone Lurdes Thomas MD Primary Care Provider [phone] Reason for Visit Reason Comments Establish Care Encounter Details Date Type Department Care Team Description 04/12/2010 Office Visit [facility] Lurdes Thomas Erectile dysfunction (Primary Dx); Uzair Laughlin MD Parkinson disease (H); 1440 [facility] Hyperlipidemia LDL goal < 13 0; [place] [address] [facility] Restless leg [phone] [place] [address] Social History Tobacco Use Types [...] Comments Blood Pressure 122/60 04/12/2010 10:07 AM CAT CRACKER OPERATOR Pulse 70 04/12/2010 10:07 AM CAT CRACKER OPERATOR Temperature - - Respiratory Rate - - Oxygen Saturation - - Inhaled Oxygen Concentration - - Weight 87 kg (191 lb 12.8 oz) 04/12/2010 10:07 AM CAT CRACKER OPERATOR Height 186.7 cm (6' 1.5) 04/12/2010 10:07 AM CAT CRACKER OPERATOR Body Mass Index 24.96 04/12/2010 10:07 AM CAT CRACKER OPERATOR documented in this encounter Progress Notes [...] MG tablet Lurdes Laughlin MD Internal Medicine/Pediatrics CRACKER OPERATOR documented in this encounter Nursing Notes [...] (RLS) documented in this encounter Care Teams Wood Cut Engraver Relationship Specialty Start Date End Date Lurdes Thomas MD PCP - General Internal Medicine 04/12/10 04/03/13 documented as of this encounter
--- OUTSIDE RECORDS SUMMARY | 2022-01-28 10:59 | XMS_ITS | Encounter Summary ---
:1955 Author Organization [facility] Address [address] [place] [address]. [place] [address] Care Team Providers Name Role Phone Unavailable Primary Care Provider Unavailable Reason for Visit Reason Onset Date Comments Refill Request 11/06/2013 Pravachol Encounter Details Date Type Department Care Team Description 11/06/2013 Refill [facility] Eag an Martha, Lurdes Refill Request 1440 [facility] MD [place] (Pravachol ) [place] [address] [facility] [phone] [address] (Wo rk) Social History [...] insurance change, no longer seen through the [facility] network. Maame Major RN Telephone Encounter - [...]
--- OUTSIDE RECORDS SUMMARY | 2022-01-28 10:59 | XMS_ITS | Encounter Summary ---
:1955 Author Organization [facility] Address [address] [place] [address]. [place] [address] Care Team Providers Name Role Phone Lurdes Thomas MD Primary Care Provider [phone] Reason for Visit Reason Onset Date Comments Refill Request 06/08/2012 pravastatin Encounter Details Date Type Department Care Team Description 06/08/2012 Refill [facility] Eag Lurdes Rojas Refill Request 1440 [facility] MD [place] (pravastatin) [place] [address] [facility] [phone] [address] (Wo rk) Social History [...] mailed to schedule appointment. Jeannine Waldron RN ER OPERATOR Telephone Encounter - Jeannine Waldron - 06/08/2012 1:33 PM CST Med requested: pravastatin Last office visit: 07/27/11 BP Readings from Last 1 Encounters: 10/25/11 104/66 Last pertinent lab: CHOL 236 07/27/2011 HDL 60 07/27/2011 LDL 152 07/27/2011 TRIG 121 07/27/2011 CHOLHDLRATIO 3.9 07/27/2011 AST 35 07/27/2011 ALT 20 07/27/2011 Jeannine Waldron RN ER OPERATOR documented in this encounter Plan of Treatment Not on filedocumented as of this encounter Visit Diagnoses Diagnosis Hyperlipidemia LDL goal < 130 - Primary Other and unspecified hyperlipidemia documented in this encounter Care Teams Master Carpenter Relationship Specialty Start Date End Date Martha, Lurdes Laughlin MD PCP - General Internal Medicine 04/12/10 04/03/13 documented as of this encounter
--- OUTSIDE RECORDS SUMMARY | 2022-01-28 10:59 | XMS_ITS | Encounter Summary ---
:1955 Author Organization [facility] Address [address] [place] [address]. [place] [address] Care Team Providers Name Role Phone Lurdes Thomas MD Primary Care Provider [phone] Reason for Visit (Routine) - Closed Specialty Diagnoses / Procedures Referred By Contact Refer red To Contact Cardiology Diagnoses 06/16-reminder ltr sent Rh Echo cc Procedures ECH COMPLETE [address] [facility] [address] [place], [place] [address] Phone: Fax: Referral ID Status Reason Start Date Expiration Date Visits Requ ested Visits Authorized [id number] Closed 06/17/2014 06/17/2015 1 1 Encounter Details Date Type Department Care Team Description 06/25/2014 [facility] MD [place] breath) [facility] [address] [facility] [address] [place], [place] [address] [place], [place] [phone] [id number] Social History Tobacco Use Types Packs/Day Years [...] Take 1 capsule 8 capsule 0 06/1208/01/2014 67099 UNIT (50,000 Units) by capsuleIndications: mouth every [...] (shortness o f Results for this OPTISON AUTOMATIC HEAD SAWYER breath) procedure are i n the results section. documented in this encounter Results ECHO COMPLETE WITH OPTISON (06/25/2014 2:19 PM AUTOMATIC HEAD SAWYER) Anatomical Region Laterality Modality Echocardiography Specimen (Source) Anatomical Collection Method Collection Time Re ceived Time Location / / Volume Laterality 06/25/2014 1:34 PM [facility] [facility] Narrative 06/25/2014 4:24 PM [facility] [facility] Interpretation Summary Left ventricular systolic function is [...] to 2mL with Given 06/25/2014 2:12 PM AUTOMATIC HEAD SAWYER 2 mLs saline (OPTISON) diluted injection 2 mL 2 mL, Intravenous, ONCE, On Mon06/25/14 at 1415, For 1 dose, 3mL Optison / 6mL Saline solution documented in this encounter Care Teams Bulb Planter Relationship Specialty Start Date End Date Lurdes Thomas MD PCP - General Internal Medicine 06/11/14 12/16/20 documented as of this encounter
--- OUTSIDE RECORDS SUMMARY | 2022-01-28 10:59 | XMS_ITS | Encounter Summary ---
:1955 Author Organization [facility] Address [address] [place] [address]. [place] [address] Care Team Providers Name Role Phone Lurdes Thomas MD Primary Care Provider [phone] Reason for Visit Reason Onset Date Comments Musculoskeletal Problem 07/13/2010 Muscle aches and weakness Encounter Details Date Type Department Care Team Description 07/13/2010 Telephone [facility] Lurdes Thomas Musculosk eletal Problem Uzair Laughlin MD (Muscle aches and 1440 [employer] weakness) [place] [address] [place] [phone] 8675 [place], [place] [address] Social History Tobacco Use [...] - Lurdes Laughlin - 07/16/2010 12:46 PM THERAPEUTIC RECREATION DIRECTOR Called and discussed with patient. Previously on [...] be evaluated. Lurdes Laughlin MD Internal Medicine/Pediatrics APEUTIC RECREATION DIRECTOR Telephone Encounter - Lurdes Laughlin - 07/15/2010 4:14 PM THERAPEUTIC RECREATION DIRECTOR Attempted again to call pt and at home and on cell. Left a message on cell. Asked pt to call or willtry back tomorrow. Lurdes Laughlin MD Internal Medicine/Pediatrics APEUTIC RECREATION DIRECTOR Telephone Encounter - Lurdes Laughlin - 07/15/2010 12:41 PM THERAPEUTIC RECREATION DIRECTOR Attempted to call patient to follow-up. Left a message at home. Will call back later. Lurdes Laughlin MD Internal Medicine/Pediatrics APEUTIC RECREATION DIRECTOR Telephone Encounter - Lurdes Laughlin - 07/13/2010 3:38 PM THERAPEUTIC RECREATION DIRECTOR Agree with the above. Ok for trial off simvastatin, but should also talk with Neurologist. II will call Andrew on . Thanks! Lurdes Laughlin MD Internal Medicine/Pediatrics APEUTIC RECREATION DIRECTOR Telephone Encounter - Maki Major - 07/13/2010 [...] be reached until . 's number is [phone]. Maame Major RN APEUTIC RECREATION DIRECTOR documented in this encounter Plan of Treatment Not on filedocumented as of this encounter Visit Diagnoses Not on filedocumented in this encounter Care Teams Nut Sifter Relationship Specialty Start Date End Date Lurdes Thomas MD PCP - General Internal Medicine 04/12/10 04/03/13 documented as of this encounter
--- OUTSIDE RECORDS SUMMARY | 2022-01-28 10:59 | XMS_ITS | Encounter Summary ---
:1955 Author Organization [facility] Address [address] [place] [address]. [place] [address] Care Team Providers Name Role Phone Lurdes Thomas MD Primary Care Provider [phone] Reason for Visit Reason Comments Hypertension labs Encounter Details Date Type Department Care Team Description 07/27/2011 Office Visit [facility] Lurdes Thomas (Primary Dx); Uzair Laughlin MD Hyperlipidemia LDL goal < 130; 1440 [employer] Parkinson disease (H); [place] [address] [place] Screening for diabetes mellitus [phone] [address] [place] [address] Social History Tobacco Use Types [...] Comments Blood Pressure 124/70 07/27/2011 10:04 AM REC THERAPIST Pulse 65 07/27/2011 10:04 AM REC THERAPIST Temperature 36.3 ??C (97.3 ??F) 07/27/2011 10:04 AM REC THERAPIST Respiratory Rate - - Oxygen Saturation - - Inhaled Oxygen Concentration - - Weight 87.7 kg (193 lb 6.4 oz) 07/27/2011 10:04 AM REC THERAPIST Height 186.7 cm (6' 1.5) 07/27/2011 10:04 AM REC THERAPIST Body Mass Index 25.17 07/27/2011 10:04 AM REC THERAPIST documented in this encounter Patient Instructions Patient InstructionsLurdes Laughlin MD - 07/27/2011 10:35 AM REC THERAPIST 1. Labs today: cholesterol, electrolytes, diabetes screen, liver function and kidney function 2. Consider checking blood pressure when get hot/flushed feeling 3. Keep a log of when it happens, how Parkinson's is that day, any increased medications, stress/anxiety level THERAPIST documented in this encounter Progress Notes Lurdes [...] Parkinson's, HLP. Lurdes Laughlin MD Internal Medicine/Pediatrics THERAPIST documented in this encounter Nursing Notes 07/27/2011 [...] sults for this DIRECT LDL PANEL AM REC THERAPIST goal < 130 procedure a re in the results section. COMPREHENSIVE Routine 07/27/2011 10:35 Hyperlipidemia LDL Resu lts for this METABOLIC PANEL AM REC THERAPIST goal < 130 procedure are in Screening for diabetes the r esults mellitus section. documented in this encounter Results Comprehensive metabolic panel (07/27/2011 10:35 AM REC THERAPIST) P athologist Signature Sodium 138 133 - 144 [facility] mmol/L [facility] Potassium 4.2 3.4 - 5.3 [facility] mmol/L [facility] Chloride 105 94 - 109 [facility] mmol/L [facility] Carbon Dioxide 21 20 - 32 [facility] mmol/L [facility] Anion Gap 11 6 - 17 [facility] mmol/L [facility] Glucose 99 60 - 99 [facility] mg/dL [facility]IC LAB Urea Nitrogen 18 7 - 30 [facility] mg/dL CLINIC LAB Creatinine 0.80 0.66 - [facility] 1.25 mg/dL [facility]IC [facility] GFR Estimate >90 >60 [facility] mL/min/1.7 [facility] m2 GFR Estimate If >90 >60 [facility] Black mL/min/1.7 CL[facility]IC [facility] m2 Calcium 9.3 8.5 - 10.4 [facility] mg/dL [facility] Bilirubin Total 0.7 0.2 - 1.3 [facility] Albumin 4.2 3.3 - 4.9 [facility] g/dL CLINIC LAB Comment: Reference range changed on 01/21. Protein Total 7.4 6.8 - 8.8 g/dL [facility] Comment: As of 07, reference range reflects plasma specimen type. Alkaline Phosphatase 87 40 - 150 U/L [facility] ALT 20 0 - 70 U/L [facility] AST 35 0 - 45 U/L [facility] CLIN IC LAB Specimen Anatomical Collection Method Collection Time Receive d Time (Source) Location / / Volume Laterality Blood specimen 07/27/2011 10:35 2 (specimen) AM REC THERAPIST 10:38 AM REC THERAPIST Lurdes Thomas MD LAB - BLOOD ORDERABLES Performing Organization Address City/State/ZIP Code Phon e Number [facility] 14[address] [place] [address] [facility] LAB (ABNORMAL) Lipid panel reflex to direct LDL (07/27/2011 10:35 AM REC THERAPIST) P athologist Signature Cholesterol 236 (H) 0 - 200 [facility] mg/dL CLINIC LAB Comment: LDL Cholesterol is the primary guide to therapy. The NCEP recommends further evaluation of: patients with cholesterol greater than 200 mg/dL if additional risk facto rs are present, cholesterol greater than 240 mg/dL, triglycerides greater than 1 50 mg/dL, or HDL less than 40 mg/dL. Triglycerides 121 0 - 150 mg/dL [facility] HDL Cholesterol 60 40 - 110 mg/dL [facility] LDL Cholesterol Calculated 152 (H) 0 - 129 mg/dL [facility] Comment: LDL Cholesterol is the primary guide to therapy: LDL-cholesterol goal in high risk patients is <100 mg/dL and in very high risk patients is <70 mg/dL. VLDL-Cholesterol 24 0 - 30 mg/dL [facility] Cholesterol/HDL Ratio 3.9 0.0 - 5.0 [facility] Specimen Anatomical Collection Method Collection Time Receive d Time (Source) Location / / Volume Laterality Blood specimen 07/27/2011 10:35 2 (specimen) AM REC THERAPIST 10:38 AM REC THERAPIST Lurdes Thomas MD LAB - BLOOD ORDERABLES Performing Organization Address City/State/ZIP Code Phon e Number [address] [address] [facility] documented in this encounter Visit Diagnoses Diagnosis Flushing - Primary Hyperlipidemia LDL goal < 130 Other and unspecified hyperlipidemia Parkinson disease (H) Paralysis agitans Screening for diabetes mellitus documented in this encounter Care Teams Manager Activities Relationship Specialty Start Date End Date Lurdes Thomas MD PCP - General Internal Medicine 04/12/10 04/03/13 documented as of this encounter
--- OUTSIDE RECORDS SUMMARY | 2022-01-28 10:59 | XMS_ITS | Encounter Summary ---
:1955 Author Organization [facility] Address [address] [place] [address]. [place] [address] Care Team Providers Name Role Phone Lurdes Thomas MD Primary Care Provider Reason for Visit Reason Onset Date Comments Pt. Information/instruction 10/26/2011 Physical the rapy Encounter Details Date Type Department Care Team Description 10/26/2011 Telephone [facility] Eag Lurdes Rojas Pt. 1440 [facility] MD [place] Information/instruction [place] [address] [facility] (Physical therapy) [phone] [place] [address] (Wo rk) Social History Tobacco Use [...] took him to a chiropractor here in [place] who does the ultrasound treatments. He got [...] on filedocumented in this encounter Care Teams Gluer Relationship Specialty Start Date End Date Lurdes Thomas MD PCP - General Internal Medicine 04/12/10 04/03/13 documented as of this encounter
--- OUTSIDE RECORDS SUMMARY | 2022-01-28 10:59 | XMS_ITS | Encounter Summary ---
:1955 Author Organization [place] Address [address] [place] [address]. [place] [address] Care Team Providers Name Role Phone Lurdes Thomas MD Primary Care Provider [phone] Reason for Visit Reason Comments Physical Encounter Details Date Type Department Care Team Description 10/15/[address] [facility] Lurdes Thomas Routine g eneral medical examination at a health care facility (Primary Dx); Uzair Laughlin MD Restless leg syndrome; 1440 [employer] Hyperlipidemia LDL goal < 13 0; [place] [address] [place] Erectile dysfunction; [phone] 86[address] [facility] Parkinson disease (H); RD Screening for colon cancer; [place], [place] Screening for p rostate cancer; [address] Screening for diabetes mellitus Social History Tobacco [...] effects. All Histories reviewed and updated in [facility]. ROS: C: NEGATIVE for fever, chills, change [...] LAB - BLOOD ORDERABLES Performing Organization Address City/[facility] Code Phon e Number [facility] [address] [place] [id number] [facility] LAB Ferritin (10/15/2010 8:32 AM CDT) athologist Signature Ferritin 47 20 - 300 [facility] ng/mL CLINIC LAB Specimen Anatomical Collection Method Collection Time Receive d Time (Source) Location / / Volume Laterality Blood specimen 10/15/2010 8:32 AM 011 8:37 (specimen) CDT AM CDT Lurdes Thomas MD LAB - BLOOD ORDERABLES Performing Organization Address City/[facility] Phon e Number [facility] [address] [place] [phone] [facility] ([facility]NORM[facility] Comprehensive metabolic panel (10/15/2010 8:32 AM CDT) P athologist Signature Sodium 142 133 - 144 [place] [facility] mmol/L [facility]IC [facility] Potassium 4.7 3.4 - 5.3 [facility]L [facility] Chloride 103 94 - 109 [facility] mmol/L [facility] Carbon Dioxide 28 20 - 32 [place] [facility] mmol/L [facility] Anion Gap 11 6 - 17 [facility]L [facility] Comment: CORRECTED ON 10/18 AT 1537: PRE VIOUSLY REPORTED 10 Glucose 101 (H) 60 - 99 mg/dL [facility] LAB Urea Nitrogen 21 7 - 30 mg/dL [facility] Creatinine 0.99 0.66 - 1.25 mg/dL [facility] GFR Estimate 79 >60 mL/min/1.7m2 [place] [facility] Comment: CORRECTED ON 10/18 AT 1537: PRE VIOUSLY REPORTED Not Calculated GFR Estimate If Black >90 >60 mL/min/1.7m2 [facility] CORRECTED ON 10/18 AT 1537: PREVIOUSLY REPORTED Not Tres culated CLINIC LAB Calcium 9.0 8.5 - 10.4 mg/dL [facility] Bilirubin Total 0.7 0.2 - 1.3 mg/dL [facility] Albumin 4.2 3.9 - 5.1 g/dL [facility] Comment: Reference range changed on 01/21. Protein Total 7.1 6.8 - 8.8 g/dL [facility] Comment: As of 07, reference range reflects plasma specimen type. Alkaline Phosphatase 77 40 - 150 U/L [facility] ALT 15 0 - 70 U/L [facility] CLIN IC LAB AST 31 0 - 55 U/L [facility] CLIN IC LAB Specimen Anatomical Collection Method Collection Time Receive d Time (Source) Location / / Volume Laterality Blood specimen 10/15/2010 8:32 AM 011 8:37 (specimen) CDT AM CDT Lurdes Thomas MD LAB - BLOOD ORDERABLES Performing Organization Address City/[facility] Phon e Number [facility] [address] [place] [address] [phone] [facility] (ABNORMAL) Lipid Profile (10/15/2010 8:32 AM CDT) P athologist Signature Cholesterol 232 (H) 0 - 200 [facility] mg/dL CLINIC LAB Comment: LDL Cholesterol is the primary guide to therapy. The NCEP recommends further evaluation of: patients with cholesterol greater than 200 mg/dL if additional risk facto rs are present, cholesterol greater than 240 mg/dL, triglycerides greater than 1 50 mg/dL, or HDL less than 40 mg/dL. Triglycerides 95 0 - 150 mg/dL [facility] LAB HDL Cholesterol 56 40 - 110 mg/dL [facility] LDL Cholesterol Calculated 157 (H) 0 - 129 mg/dL [facility] Comment: LDL Cholesterol is the primary guide to therapy: LDL-cholesterol goal in high risk patients is <100 mg/dL and in very high risk patients is <70 mg/dL. VLDL-Cholesterol 19 0 - 30 mg/dL [facility] Cholesterol/HDL Ratio 4.1 0.0 - 5.0 [facility] Comment: CORRECTED ON 10/18 AT 1537: PRE VIOUSLY REPORTED 4.2 Specimen Anatomical Collection Method Collection Time Receive d Time (Source) Location / / Volume Laterality Blood specimen 10/15/2010 8:32 AM 011 8:37 (specimen) CDT AM CDT Lurdes Thomas MD LAB - BLOOD ORDERABLES Performing Organization Address [facility] Phon e Number [facility] [address] [place] [address] [phone] [facility] documented in this encounter Visit Diagnoses [...] mellitus documented in this encounter Care Teams Ui Ux Developer Relationship Specialty Start Date End Date Lurdes Thomas MD PCP - General Internal Medicine 04/12/10 04/03/13 documented as of this encounter
--- OUTSIDE RECORDS SUMMARY | 2022-01-28 10:59 | XMS_ITS | Encounter Summary ---
:1955 Author Organization [facility] Address [address] [place] [address]. [place] [address] Care Team Providers Name Role Phone Oli Thomas MD Primary Care Provider [phone] Reason for Visit Reason Comments Breathing Problem Encounter Details Date Type Department Care Team Description 06/11/2014 Office Visit [facility] Oli Thomas SOB (shor tness of breath) (Primary Dx); Uzair Laughlin MD Fatigue; 1440 Access [employer] Vitamin D deficiency disease ; [place] [address] [place] Lower extremity edema; [phone] [facility] GERD (ghazala roesophageal reflux disease) [place], [place] [address] Social History Tobacco Use [...] Comments Blood Pressure 114/70 06/11/2014 8:04 AM KILN PUSHER Pulse 99 06/11/2014 8:04 AM KILN PUSHER Temperature 36.9 ??C (98.5 ??F) 06/11/2014 8:04 AM KILN PUSHER Respiratory Rate - - Oxygen Saturation 94% 06/11/2014 8:04 AM KILN PUSHER Inhaled Oxygen Concentration - - Weight 95.6 kg (210 lb 12.8 oz) 06/11/2014 8:04 AM KILN PUSHER Height 186.7 cm (6' 1.5) 06/11/2014 8:04 AM KILN PUSHER Body Mass Index 27.43 06/11/2014 8:04 AM KILN PUSHER documented in this encounter Patient Instructions Patient InstructionsSerumOli MD - 06/11/2014 9:03 AM KILN PUSHER 1. Labs today: liver function, kidney function, blood counts, vitamin D levels 2. You will be contacted to set up the stress test and echocardiogram (ultrasound) of the heart PUSHER documented in this encounter Progress Notes Oli [...] likely in July. [facility] at [facility] last year. Reviewed labs in care everywhere. [...] [facility] andupdated as appropriate. OBJECTIVE: BP 114/70 [...] Provider - [address] [facility] PUSHER documented in this encounter Nursing Notes Tamy [...] using cuff size: large Tamy Leahy LPN PUSHER documented in this encounter Miscellaneous Notes Addendum Note - Oli Thomas MD - 06/12/2014 4:46 PM KILN PUSHER Addended by: OLI THOMAS on: 06/12/2014 04:46 PM Modules accepted: Orders PUSHER documented in this encounter Plan of Treatment Not on filedocumented as of this encounter Procedures Procedure Name Priority Date/Time Associated Comments Diagnosis CBC WITH PLATELETS & Routine 06/11/2014 9:05 AM SOB (shortness of Results for this DIFFERENTIAL KILN PUSHER breath) procedure are in Fatigue the results section. VITAMIN D DEFICIENCY Routine 06/11/2014 9:05 AM Vitamin D R esults for this SCREENING KILN PUSHER deficiency disease procedure are in the results section. COMPREHENSIVE Routine 06/11/2014 9:05 AM SOB (shortness of Res ults for this METABOLIC PANEL KILN PUSHER breath) procedure are in Fatigue the results Lower extremity section. edema EKG 12-LEAD COMPLETE Routine 06/11/2014 SOB (shortness of Re sults for this W/READ - CLINICS breath) procedure a re in the results section. documented in this encounter Results NM Lexiscan stress test (06/25/2014 1:06 PM KILN PUSHER) Anatomical Region Laterality Modality Chest Nuclear Medicine Specimen (Source) Anatomical Location Collection Method / Collectio n Time Received Time / Laterality Volume Narrative 06/26/2014 10:06 AM KILN PUSHER GATED MYOCARDIAL PERFUSION SCINTIGRAPHY WITH INTRAVENOUS PHARMACOLOGIC [...] (ABNORMAL) Vitamin D Deficiency (06/11/2014 9:05 AM KILN PUSHER) P athologist Signature Vitamin D 21 (L) 30 - 75 [facility] Deficiency ug/L [place] [facility] Comment: Season, race, dietary intake, and treatm ent affect the concentration of 46-hquvbsj-Xnvxtmb D. Values may decrea se during winter [...] specimen 06/11/2014 9:05 AM 015 9:07 (specimen) KILN PUSHER AM KILN PUSHER Oli Thomas MD LAB - BLOOD ORDERABLES Performing Organization Address City/State/ZIP Code Phon e Number [address] [address] [facility] CBC with platelets differential (06/11/2014 9:05 AM KILN PUSHER) [facility] gist Method Time Signature WBC 4.8 4.0 - [facility] 11.0 CLINICS 10e9/L [facility] RBC Count 5.06 4.4 - 5.9 [facility] 10e12/L [facility] Hemoglobin 15.4 13.3 - [facility] 17.7 g/dL [facility] Hematocrit 46.8 40.0 - [facility] 53.0 % [facility] MCV 93 78 - 100 [facility] fl [facility] MCH 30.4 26.5 - [facility] 33.0 pg [facility]IN[facility] MCHC 32.9 31.5 - [facility] 36.5 g/dL [facility] RDW 12.7 10.0 - [facility] 15.0 % [facility] Platelet Count 205 150 - 450 [facility] 10e9/L [facility] Diff Method Automated [facility] Method [facility] % Neutrophils 55.7 % [facility] % Lymphocytes 32.6 % [facility] % Monocytes 9.8 % [facility] % Eosinophils 1.5 % [facility] % Basophils 0.4 % [facility] Absolute 2.7 1.6 - 8.3 [facility] Neutrophil 10e9/L [facility] Absolute 1.6 0.8 - 5.3 [facility] Lymphocytes 10e9/L [facility] Absolute 0.5 0.0 - 1.3 [facility] Monocytes 10e9/L [facility] Absolute 0.1 0.0 - 0.7 [facility] Eosinophils 10e9/L [facility] Absolute 0.0 0.0 - 0.2 [facility] Basophils 10e9/L [facility] Specimen Anatomical Collection Method Collection Time Receive d Time (Source) Location / / Volume Laterality Blood specimen 06/11/2014 9:05 AM 015 9:07 (specimen) KILN PUSHER AM KILN PUSHER Oli Thomas MD LAB - BLOOD ORDERABLES Performing Organization Address City/State/ZIP Code Phon e Number [facility] [address] [place] [address] (ABNORMAL) Comprehensive metabolic panel (06/11/2014 9:05 AM KILN PUSHER) Analysis Performed At [facility] logis Time Signature Sodium 139 133 - 144 [facility] mmol/L [facility] Potassium 4.7 3.4 - 5.3 [facility] mmol/L [facility] Chloride 104 94 - 109 [place] mmol/L [facility] Carbon Dioxide 31 20 - 32 [facility] mmol/L [facility] Anion Gap 4 3 - 14 [facility] mmol/L [facility] Glucose 102 (H) 70 - 99 [facility] mg/dL [facility] Comment: Effective 12/18/2013, the reference range for this assay has changed to reflect new instrumentation/methodology. Urea Nitrogen 21 7 - 30 mg/dL [facility] Comment: Effective 12/18/2013, the reference range for this assay has changed to reflect new instrumentation/methodology. Creatinine 0.82 0.66 - 1.25 [facility] mg/dL [facility] GFR Estimate >90 >60 mL/min/1.7m2 [facility] Non GFR Calc [facility] GFR Estimate If Black >90 >60 mL/min/1.7m2 F [facility] GFR Calc [facility] Calcium 9.1 8.5 - 10.1 mg/dL [facility] Comment: Effective 12/18/2013, the reference range for this assay has changed to reflect new instrumentation/methodology. Bilirubin Total 0.6 0.2 - 1.3 mg/dL [facility] Albumin 4.1 3.4 - 5.0 g/dL [facility] S [facility] Protein Total 7.5 6.8 - 8.8 g/dL [facility] Alkaline Phosphatase 106 40 - 150 U/L [facility] ALT 20 0 - 70 U/L [facility] AST 37 0 - 45 U/L [facility] Specimen Anatomical Collection Method Collection Time Receive d Time (Source) Location / / Volume Laterality Blood specimen 06/11/2014 9:05 AM 015 9:07 (specimen) KILN PUSHER AM KILN PUSHER Oli Thomas MD LAB - BLOOD ORDERABLES Performing Organization Address City/State/ZIP Code Phon e Number [facility] [address] [place] [address] XR Chest 2 Views (06/11/2014 8:52 AM KILN PUSHER) Anatomical Region Laterality Modality Chest Computed Radiography Specimen (Source) Anatomical Location Collection Method / Collectio n Time Received Time / Laterality Volume Impressions 06/11/2014 9:24 AM KILN PUSHER IMPRESSION: ??Negative. CYNTHIA PACE MD Narrative 06/11/2014 9:24 AM KILN PUSHER XR CHEST 2 VW ??06/11/2014 8:52 AM [...] breath documented in this encounter Care Teams Kiosk Sales Representative Relationship Specialty Start Date End Date Oli Thomas MD PCP - General Internal Medicine 06/11/14 12/16/20 documented as of this encounter
--- OUTSIDE RECORDS SUMMARY | 2022-01-28 10:59 | XMS_ITS | Encounter Summary ---
:1955 Author Organization [facility] Address [address] [place] [address]. [place] [address] Care Team Providers Name Role Phone Lurdes Thomas MD Primary Care Provider Reason for Visit Reason Onset Date Comments Back Pain 07/20/2011 6 wk follow up Encounter Details Date Type Department Care Team Description 07/20/2011 Telephone [facility] Lurdes Oh Back Pain (6 wk follow 1440 [facility] MD [place] up) [place] [address] [facility] [phone] [address] (Wo rk) Social History Tobacco Use [...] for patient to return call or send BlueVoxhart message on how he is doing with backpain. Kristina Brandt RN Telephone Encounter - Maki Major - 08/22/2011 3:28 PM CDT LOW BACK PAIN nursing triage 6 week follow-up: Maki Major [facility] Tele[facility] Encounter - Blanca Brandt - 07/20/2011 10:38 AM CST Please post pone and call patient for 6wk follow up of low back pain on or around 08/22/11. Kristina Brandt RN WASH ATTENDANT AUTOMATIC documented in this encounter Plan of Treatment Not on filedocumented as of this encounter Visit Diagnoses Not on filedocumented in this encounter Care Teams Weaver Dobby Loom Relationship Specialty Start Date End Date Lurdes Thomas MD PCP - General Internal Medicine 04/12/10 04/03/13 documented as of this encounter
--- OUTSIDE RECORDS SUMMARY | 2022-01-28 10:59 | XMS_ITS | Encounter Summary ---
:1955 Author Organization [facility] Address [address] [facility] [place] [address] Care Team Providers Name Role Phone Lurdes Thomas MD Primary Care Provider [phone] Encounter Details Date Type Department Care Team Description 06/18/[address] [facility] Scan, GOALS AND CONCERNS [facility], Non-Provider Health Info Mgmt [facility] [address] [facility] [address] [place] [address] Social History Tobacco Use Types [...] filedocumented in this encounter Care Teams Freight Service Inspector Relationship Specialty Start Date End Date Lurdes Thomas MD PCP - General Internal Medicine 06/11/14 12/16/20 documented as of this encounter
--- OUTSIDE RECORDS SUMMARY | 2022-01-28 11:00 | XMS_ITS | Encounter Summary ---
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
--- OUTSIDE RECORDS SUMMARY | 2022-01-28 11:00 | XMS_ITS | Encounter Summary ---
:1955 Author Organization [facility] Address [address] [address] Care Team Providers Name Role Phone Samantha Stauffer MD Primary Care Provider [phone] Reason for Visit Reason Comments Refill Encounter Details Date Type Department Care Team Description 05/18/2021 Refill [facility] Neuroscience Maria Esther Reis MD Refill Center Neurology [address] [facility] [address] [place] [address] [place] [address] [phone] Social History Tobacco Use Types Packs/Day Years [...] filedocumented in this encounter Care Teams Supervisor Reactor Fueling Relationship Specialty Start Date End Date Samantha Stauffer MD PCP - General Family Practice 12/12/191999 [place] [address] documented as of this encounter
--- OUTSIDE RECORDS SUMMARY | 2022-01-28 11:00 | XMS_ITS | Encounter Summary ---
:1955 Author Organization [facility] Address [address] [place] [address] Care Team Providers Name Role Phone Samantha Stauffer MD Primary Care Provider [phone] Reason for Visit Reason Comments Medication Questions Encounter Details Date Type Department Care Team Description 12/30/2020 Telephone [facility] Walker Medicat ion Questions [facility] MD Prem Neurology [address] [facility] [address] [facility] [place] [address] [place], [place] [phone] (Wo rk) Social History Tobacco Use Types [...] parkinson's. Dr. Thompson can be reached at [phone]. Thank you documented in this encounter Plan of Treatment Not on filedocumented as of this encounter Visit Diagnoses Not on filedocumented in this encounter Care Teams Court Abstractor Relationship Specialty Start Date End Date Samantha Stauffer MD PCP - General Family Practice 12/12/191999 [place] [address] documented as of this encounter
--- OUTSIDE RECORDS SUMMARY | 2022-01-28 11:00 | XMS_ITS | Encounter Summary ---
:1955 Author Organization [facility] Address [address] [place] [address] Care Team Providers Name Role Phone Samantha Stauffer MD Primary Care Provider Encounter Details Date Type Department Care Team Description 07/14/2021 Telephone [facility] Princess Phan, Center Neurology [address] [place] [address] [place] [address] [phone] (Wo rk) Social History Tobacco Use Types [...] verbalizes understanding. Chloé Denny 07/16/2021, 5:09 PM ER AND PACKER Doris Slaughter RN - 07/16/2021 4:43 PM CST RN looked at RX, PA approval through 10/2021. Doris Slaughter RN 07/16/2021, 4:44 PM ER AND PACKER Karin Dill - 07/16/2021 4:39 PM CST Pt calling stating they need a PA for this rx, please advise, thanks! Karin Dill 07/16/2021, 4:40 PM ER AND PACKER Chloé Denny - 07/16/2021 2:05 PM CST Prescription form not necessary. RN spoke with pharmacy this morning and gave verbal. Sheldon Merlos - 07/16/2021 1:06 PM CST Images from the original note were not included. Recd universal prescription/ pharmacy intake form from [facility] Placed in providers right fax Sheldon Mays 07/16/2021, 1:07 PM ER AND PACKER Chloé Denny - 07/16/2021 9:31 AM CST RN called [facility] (ph. [phone]) to give additional information per pt request [...] please call Cristhian Dueñas 07/14/2021, 12:13 PM ER AND PACKER documented in this encounter Plan of Treatment Not on filedocumented as of this encounter Visit Diagnoses Not on filedocumented in this encounter Care Teams Manager Division Relationship Specialty Start Date End Date Samantha Stauffer MD PCP - General Family Practice 12/12/191999 [place] [address] documented as of this encounter
--- OUTSIDE RECORDS SUMMARY | 2022-01-28 11:00 | XMS_ITS | Encounter Summary ---
:1955 Author Organization [facility] Address [address], [place] [address] Care Team Providers Name Role Phone Samantha Stauffer MD Primary Care Provider [phone] Reason for Visit Procedure/Equipment (Routine) - Incomplete Specialty Diagnoses / Procedures Referred By Contact Refer red To Contact Diagnoses Parkinson's disease ([facility]) Dysphagia, unspecified type Sylvester, Maria Esther Amaro MD Procedures [place] Video Swallow Study [address] [place], [place] [address] Referral ID Status Reason Start Date Expiration Date Visits V isits Requested Authorized [id number] Incomplete 11/04/2020 02/03/2022 1 1 Encounter Details Date Type Department Care Team Description 11/19/2020 Ancillary [facility] Parashos, Pre-procedura l laboratory examination (Primary Dx); Procedure Neuroscience Center Maria Esther Amaro MD Parkinson's disease ([facility]); Radiology Fluoro [address] [place] Dysphagia, unspecified type [address] [place] [address] [place], [place] [phone] [address] Social History Tobacco Use Types Packs/Day Years [...] CDT EXAM: [place] VIDEO SWALLOW STUDY LOCATION: [facility] DATE/TIME: 11/19/2020 11:56 AM INDICATION: Difficulty [...] original. EXAM: [place] VIDEO SWALLOW STUDY LOCATION: [facility] DATE/TIME: 11/19/2020 11:56 AM INDICATION: Difficulty [...] dose documented in this encounter Care Teams Economic Research Assistant Relationship Specialty Start Date End Date Samantha Stauffer MD PCP - General Family Practice 12/12/191999 [place] [address] documented as of this encounter
--- OUTSIDE RECORDS SUMMARY | 2022-01-28 11:00 | XMS_ITS | Encounter Summary ---
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 (HRC) At risk for falling Maria Esther Phan MD [address] [place], [place] [address] Referral ID Status Reason Start Date Expiration Date Visits Requ ested Visits Authorized [id number] Closed 11/13/2020 11/13/2021 1 1 Encounter Details Date Type Department Care Team Description 12/04/2020 Therapy [facility] Carlos Cartwright, Prema n's disease (HRC) (Primary Dx); [facility] PT Impaired functional mobility, balance, g ait, and endurance Physical Therapy [address] [address] [phone] Social History Tobacco Use Types Packs/Day Years [...] discussion mentioned that they live [place] to [place] and it would be very difficult to attend physical therapy at this facility on a weekly to bi-weekly basis. After long discussion with patient and his , decision had been made for them to call [facility] and request a physical therapist that is certified in the [employer] program that could effectively treat patient with less stress on family (reducing driving). Did educate patient on different Parkinson's classes in the community, our [facility] PD programs and on [employer] program. Patient and his were satisfied [...] endurance documented in this encounter Care Teams Yard Motor Operator Relationship Specialty Start Date End Date Samantha Stauffer MD PCP - General Family Practice 12/12/191999 [place] [address] documented as of this encounter
--- OUTSIDE RECORDS SUMMARY | 2022-01-28 11:00 | XMS_ITS | Encounter Summary ---
:1955 Author Organization [facility] Address [address], [place] [address] Care Team Providers Name Role Phone Samantha Stauffer MD Primary Care Provider [phone] Encounter Details Date Type Department Care Team Description 12/21/2020 [facility] Princess Phan, [place] [facility] [address] [place] [address] [place] [address] [phone] (Wo rk) Social History Tobacco Use Types [...] info edited w/ current number : ph. [phone]) Natasha reports that since decreasing RYTARY to [...] addressed first. Pt has an appt with [facility] in [place] tomorrow (12/25) as well as a f/u [...] disconnected. Number is disconnected. RN sent a Shipey message encouraging them to give us a call. Chloé Denny 12/22/2020, 4:19 PM Chloé Denny - 12/21/2020 3:55 PM CDT RN attempted to call Natasha back 2 x @ . [phone] and line was disconnected (message states destination not assigned). Then called . [phone], no answer. [facility] Chloé Denny 12/21/2020, 3:57 PM Maria Esther [...] filedocumented in this encounter Care Teams Sales Relationship Manager Relationship Specialty Start Date End Date Samantha Stauffer MD PCP - General Family Practice 12/12/[address]1999 [place] [address] documented as of this encounter
--- OUTSIDE RECORDS SUMMARY | 2022-01-28 11:00 | XMS_ITS | Encounter Summary ---
:1955 Author Organization [facility] Address [address], [place] [address] Care Team Providers Name Role Phone Samantha Stauffer MD Primary Care Provider [phone] Reason for Visit Reason Comments Refill Encounter Details Date Type Department Care Team Description 11/01/2020 Refill [facility] Neuroscience Maria Esther Reis MD Refill Center Neurology [address] [facility] [address] [facility] [place] [address] [place] [address] [phone] Social History Tobacco Use Types Packs/Day Years [...] on filedocumented in this encounter Care Teams On Line Csr Relationship Specialty Start Date End Date Samantha Stauffer MD PCP - General Family Practice 12/12/191999 [place] [address] documented as of this encounter
--- OUTSIDE RECORDS SUMMARY | 2022-01-28 11:00 | XMS_ITS | Encounter Summary ---
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 Reason for Visit Therapies (Routine) - Closed Specialty Diagnoses / Procedures Referred By Contact Refer red To Contact Diagnoses Parkinson's disease (HRC) Dysphagia, unspecified type Maria Esther Phan MD [address] [place] [address] Referral ID Status Reason Start Date Expiration Date Visits Requ ested Visits Authorized [id number] Closed 10/28/2020 10/28/2021 999 999 Encounter Details Date Type Department Care Team Description 11/19/2020 Office Visit [facility] Fong, Dysphagia, o ropharyngeal phase (Primary Dx); Neuroscience Center BOWL ATTENDANT Parkinson's disease (HRC); Speech Therapy [address] [place] [address] Hypokinetic Parkinsonian dysphonia (HRC) [address] [place] [id number] [address] [place] [address] [phone] Social History Tobacco Use Types Packs/Day Years [...] reach out to you soon. JB Samuels [facility] Licensed Speech Language Pathologist -- Outpatient [...] set to have EGD done tomorrow in [place], [place]. Hopefully this will lead to a [...] a regular diet with thin liquids Blue [employer] Insurance Info: Today's Visit Number: 1 Progress [...] to IDDSI liquid framework: Davina Alegria, Mapping [employer] Varibar Barium Products to the IDDSI Framework. [employer] website. ht tps://iddsi.org/IDDSI/media/images/Publications/[place]-Zfzggwv-ds-IDDSI-Framewo rk.pdf. October 2016. Varibar Thin 40% IDDSI Level 0-Thin Varibar [address] 40% IDDSI Level 2-Mildly Thick Varibar Thin [...] Dysphonia documented in this encounter Care Teams Furniture Installer Relationship Specialty Start Date End Date Samantha Stauffer MD PCP - General Family Practice 12/12/191999 [place] [address] documented as of this encounter
--- OUTSIDE RECORDS SUMMARY | 2022-01-28 11:00 | XMS_ITS | Encounter Summary ---
:1955 Author Organization [facility] Address [address] [place] [address] Care Team Providers Name Role Phone Samantha Stauffer MD Primary Care Provider [phone] Reason for Referral Therapies (Routine) - Closed Specialty Diagnoses / Procedures Referred By Contact Refer red To Contact Diagnoses Parkinson's disease (HRC) Dysphagia, unspecified type Maria Esther Phan MD 3936 [place], [place] [address] Referral ID Status Reason Start Date Expiration Date Visits Requ ested Visits Authorized [id number] Closed 10/28/2020 10/28/[phone] Scheduling Instructions Your provider has recommended an appoint ment with a [facility] Speech Therapist. Please call for your appointment you may call [facility] Outpatient Rehabilitation at [phone]. We suggest you call your [facility] insurance company about your coverage and benefits for this appointment. Reason for Visit Reason Comments Pain Stomach and trouble swallowi ng Encounter Details Date Type Department Care Team Description 10/28/2020 [facility] MD Prem trouble swallowing) Neurology [facility] [address] [address] [place], [place] [phone] (Wo rk) Social History Tobacco Use Types [...] call and schedule the swallow study (ph. [phone]) Spouse reports that pt went to see a provider at [facility] last (10/29) and was prescribed generic Prilosec. This has been helpful thus far. They also saw pt's PCP this morning (11/04) who is recommending a GI consult. Dr. Phan: Do you have a preferred talent director you would recommend to someone who has [...] (HRC) documented in this encounter Care Teams Dinkey Locomotive Engineer Relationship Specialty Start Date End Date Samantha Stauffer MD PCP - General Family Practice 12/12/191999 [place] [id number] documented as of this encounter
--- OUTSIDE RECORDS SUMMARY | 2022-01-28 11:00 | XMS_ITS | Encounter Summary ---
:1955 Author Organization [facility] Address [address] [place] [address] Care Team Providers Name Role Phone Samantha Stauffer MD Primary Care Provider [phone] Reason for Visit Reason Comments Prior Authorization Request Amantadine HCl ER (GOCOVRI ) 137 MG CP24 Encounter Details Date Type Department Care Team Description 10/14/2021 [facility] MD Prem Request (Amantadine Neurology [address] HCl ER (GOCOVRI) [address] MG CP24) [place] [address] [place], [place] [phone] [id number] Social History Tobacco Use Types Packs/Day Years Used Date Smoking Tobacco: Never Smokeless Tobacco: Never Alcohol Use Standard Drinks/Week Comments Not Currently 0 (1 standard drink = 0.6 oz pure alcoho l) Sex Assigned at Date Recorded Not on file documented as of this encounter Nursing Notes Chloé Denny - 10/14/2021 2:35 PM CDT Approved Prior authorization approved Payer: [facility] CaseId:[id number];Status:Approved;Review Type:Prior Auth;Coverage Start Date:09/14/2021;Coverage End Date:10/14/2022; Approval Details Authorized from September 14, 2021 to October 14, 2022 Chloé Denny - 10/14/2021 1:09 PM CDT ePA requested through [facility]. Chloé Denny 10/14/2021, 1:09 PM Sylvia Burgess - 10/14/2021 9:10 AM CDT There is an approval through October 27 Recd fax from [employer], Please initiate new PA- Amantadine HCl ER (GOCOVRI) 137 MG CP24 Please see the providers right fax folder to review the fax for this TE. Sylvia Burgess 10/14/2021, 9:10 AM documented in this encounter Plan of Treatment Not on filedocumented as of this encounter Visit Diagnoses Not on filedocumented in this encounter Care Teams Sales Team Manager Relationship Specialty Start Date End Date Samantha Stauffer MD PCP - General Family Practice 12/12/191999 [place] [address] documented as of this encounter
--- OUTSIDE RECORDS SUMMARY | 2022-01-28 11:00 | XMS_ITS | Encounter Summary ---
:1955 Author Organization [facility] Address [address] [place] [address] Care Team Providers Name Role Phone Samantha Stauffer MD Primary Care Provider [phone] Reason for Referral Procedure/Equipment (Routine) - Incomplete Specialty Diagnoses / Procedures Referred By Contact Refer red To Contact Diagnoses Parkinson's disease (HRC) Dysphagia, unspecified type ParashosMaria Esther MD Procedures FL Video Swallow Study 3931 [place], [place] [address] Referral ID Status Reason Start Date Expiration Date Visits V isits Requested Authorized [id number] Incomplete 11/04/2020 02/03/2022 1 1 Therapies (Routine) - Closed Specialty Diagnoses / Procedures Referred By Contact Refer red To Contact Diagnoses Parkinson's disease (HRC) Dysphagia, unspecified type ParashoMaria Esther jacques MD [address] [place], [place] [address] Referral ID Status Reason Start Date Expiration Date Visits Requ ested Visits Authorized [id number] Closed 11/04/2020 11/04/2021 1 1 Scheduling Instructions Your provider has recommended an appoint ment with a [facility] Speech Therapist. Please call for your appointment you may call [facility] Outpatient Rehabilitation at [phone]. We suggest you call your [facility] insurance company about your coverage and benefits for this appointment. Reason for Visit Reason Comments Orders Needed FL VIDEO SWALLOW STUDY Encounter Details Date Type Department Care Team Description 11/04/2020 Telephone [facility] Maria Esther Phan Orders Needed ([place] [facility] MD Jorden VIDEO SWALLOW STUDY ) Neurology 3931 [facility] [address] [place] [address] [place], [place] [phone] (Wo rk) Social History Tobacco Use Types [...] had done Jun). RN can see the MACADAM RAKER order that requests video swallow study (with radiology and speech, but they need the actual order along with the MACADAM RAKER order. The order is pended. Dr. Phan [...] EXAM: FL VIDEO SWALLOW STUDY LOCATION: [facility] DATE/TIME: 11/19/2020 11:56 AM INDICATION: [...] EXAM: FL VIDEO SWALLOW STUDY LOCATION: [facility] DATE/TIME: 11/19/2020 11:56 AM INDICATION: [...] type documented in this encounter Care Teams Charge Authorizer Relationship Specialty Start Date End Date Samantha Stauffer MD PCP - General Family Practice 12/12/191999 [place] [address] documented as of this encounter
--- OUTSIDE RECORDS SUMMARY | 2022-01-28 11:00 | XMS_ITS | Encounter Summary ---
:1955 Author Organization [facility] Address [address] [address] Care Team Providers Name Role Phone Samantha Stauffer MD Primary Care Provider [phone] Reason for Visit Reason Comments Medication Questions Encounter Details Date Type Department Care Team Description 06/11/2021 Telephone [facility] Doris Arauz under cutting machine operator Questions [address] [place] [address] Social History Tobacco Use Types Packs/Day [...] left again. Chloé Denny 06/16/2021, 1:21 PM RAL RESOURCES EXTENSION EDUCATOR Chloé Denny - 06/14/2021 3:32 PM CST RN called pt to advise him to call Lillie Sanjeev Boyer back regarding his rx. No answer. Detailed voicemail left. Chloé Denny 06/14/2021, 3:33 PM RAL RESOURCES EXTENSION EDUCATOR Doris Arauz RN - 06/11/2021 1:55 PM CST [facility]SC pt. [facility] called because they are in need of more information to contact the patient. They have attempted 5 times with not luck. They are requesting a call back at [phone] RAL RESOURCES EXTENSION EDUCATOR documented in this encounter Plan of Treatment Not on filedocumented as of this encounter Visit Diagnoses Not on filedocumented in this encounter Care Teams Family Service Caseworker Relationship Specialty Start Date End Date Samantha Stauffer MD PCP - General Family Practice 12/12/191999 [place] [id number] documented as of this encounter
--- OUTSIDE RECORDS SUMMARY | 2022-01-28 11:00 | XMS_ITS | Encounter Summary ---
:1955 Author Organization [facility] Address [address] [place] [address] Care Team Providers Name Role Phone Samantha Stauffer MD Primary Care Provider [phone] Reason for Visit Reason Comments RELEASE OF RECORDS Encounter Details Date Type Department Care Team Description 12/15/2020 Telephone [email or web address] Maria Esther Phan RELEASE OF RECORDS [facility] MD Prem Neurology [address] [phone] (Wo rk) Social History Tobacco Use Types [...] original note were not included. Records from [facility] received and sent to scanning. Kelly Encarnacion CMA 12/15/2020, 2:19 PM documented in this encounter Plan of Treatment Not on filedocumented as of this encounter Visit Diagnoses Not on filedocumented in this encounter Care Teams Embedded Software Developer Relationship Specialty Start Date End Date Samantha Stauffer MD PCP - General Family Practice 12/12/191999 [place] [address] documented as of this encounter
--- OUTSIDE RECORDS SUMMARY | 2022-01-28 11:00 | XMS_ITS | Encounter Summary ---
:1955 Author Organization [facility] Address [address] [place] [address] Care Team Providers Name Role Phone Samantha Stauffer MD Primary Care Provider [phone] Reason for Visit Reason Comments QUESTIONS, GENERAL Battery Encounter Details Date Type Department Care Team Description 12/07/2020 Telephone [facility] Brower, GENERAL [facility] MD Prem (Battery ) Neurology 39[address] [facility] [address] [place] [address] [place], [place] [phone] (Wo rk) Social History Tobacco Use Types Packs/Day Years Used Date Smoking Tobacco: Never Smokeless Tobacco: Never Alcohol Use Standard Drinks/Week Comments Not Currently 0 (1 standard drink = 0.6 oz pure alcoho l) Sex Assigned at Date Recorded Not on file documented as of this encounter Nursing Notes Chloé Denny - 12/09/2020 3:53 PM CDT RN called pt's spouse back (ph. [phone]) to relay Dr. Phan' recommendations. Verbalizes understanding and they will adjust pt's RYTARY to tid first. RN also sent recommendations via [employer] message. Encouraged to call back with any [...] filedocumented in this encounter Care Teams Community Outreach Manager Relationship Specialty Start Date End Date Samantha Stauffer MD PCP - General Family Practice 12/12/191999 [place] [address] documented as of this encounter
--- OUTSIDE RECORDS SUMMARY | 2022-01-28 11:00 | XMS_ITS | Encounter Summary ---
:1955 Author Organization [facility] Address [address] [place] [address] Care Team Providers Name Role Phone Samantha Stauffer MD Primary Care Provider [phone] Encounter Details Date Type Department Care Team Description 02/09/2021 Notes/Orders [facility] Neuroscience [facility] Speech Therap y [address] [place] [id number] [place] [address] [phone] Social History Tobacco Use Types Packs/Day Years Used Date Smoking Tobacco: Never Smokeless Tobacco: Never Alcohol Use Standard Drinks/Week Comments Not Currently 0 (1 standard drink = 0.6 oz pure alcoho l) Sex Assigned at Date Recorded Not on file documented as of this encounter Progress Notes Mesfin Morgan SLP - 02/09/2021 10:30 AM CDT SPEECH THERAPY DISCHARGE NOTE Andrew Pang [id number] Payor: [facility] / Plan: [facility] OUT OF STATE / Product Type: Commercial [...] filedocumented in this encounter Care Teams Correctional Case Records Supervisor Relationship Specialty Start Date End Date Samantha Stauffer MD PCP - General Family Practice 12/12/191999 [place] [address] documented as of this encounter
--- OUTSIDE RECORDS SUMMARY | 2022-01-28 11:00 | XMS_ITS | Clinical Summary ---
:1955 Author Organization [facility] Address [address] [place] [address] Care Team Providers Name Role Phone Samantha Stauffer MD Primary Care Provider [phone] Source Comments You are receiving this document [...] for each transition of care or referral. [facility] Allergies No known active allergies Medications Medication [...] this topic Medical Devices Implanted Type Area Wood Cutter Device Shelf Model / Identifier Expiration Serial / Date Lot Activa Pc - [id number] DEVICE Right: Medtronic - 2020 [id number] / Implanted: Qty: 1 on 12/12/2019 by Jorge L Kaiser MD at [facility] CHEST Neurological [id number] / NA Insurance Payer Benefit Plan / Subscriber ID Effective Dates Phone Addre ss Type Group MEDICARE MEDICARE PART [id number] 2018-Presfederica [phone] Medicare A t 27 BCBS BCBS OUT OF [id number] 2017-Ignacio [address] [address] Commercial [place] [id number] [address] (Home) [place] [address] [address] Andrew Pang Personal/Famil Self 1955 [phone] [address] y (Home) [place] 5512 2 Andrew Pang Personal/Famil Self 1955 [address] (Home) [place] 550 19 Advance Directives Latest Code Status on File Code Status Date Activated Date Inactivated Comments Full Code 12/12/2019 8:30 AM 12/12/2019 9:48 PM Care Teams Computational Mathematician Relationship Specialty Start Date End Date Samantha Stauffer MD PCP - General Family Practice 12/12/191999 [place] [address]
--- OUTSIDE RECORDS SUMMARY | 2022-01-28 11:00 | XMS_ITS | Encounter Summary ---
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 Call [facility] Outpatient Rehabilitation at . We suggest you call your health insurance company about your coverage an d benefits for this appointment. Encounter Details Date Type Department Care Team Description 11/13/2020 Office Visit Maria Esther Mckeon on's disease (HRC) (Primary Dx); [facility] MD Prem Dysphagia, unspecified type; Neurology [address] [place] [address] Dyskinesia due to Parkinson' s disease (HRC); [address] [place] [address] [place], [place] [phone] Social History Tobacco Use Types Packs/Day Years [...] the endoscopy isplanned. If all those things bottom turning lathe turner to be okay then I would [...] we will arrange for programming session at [facility]. Next 6. Otherwise follow-up with me in [...] fall documented in this encounter Care Teams Experimental Box Tester Relationship Specialty Start Date End Date Samantha Stauffer MD PCP - General Family Practice 12/12/191999 [place] [address] documented as of this encounter
--- OUTSIDE RECORDS SUMMARY | 2022-01-28 11:01 | XMS_ITS | Encounter Summary ---
:1955 Author Organization [facility] Address [address] [place] [address] Care Team Providers Name Role Phone Samantha Stauffer MD Primary Care Provider [phone] Encounter Details Date Type Department Care Team Description 11/20/2019 [facility] 3931 Clementine Kaiser MD Neurosurgery [address] [address] [phone] Social History Tobacco Use Types Packs/Day Years [...] filedocumented in this encounter Care Teams Food Truck Caterer Relationship Specialty Start Date End Date Samantha Stauffer MD PCP - General Family Practice 12/12/191999 [place] [address] documented as of this encounter
--- OUTSIDE RECORDS SUMMARY | 2022-01-28 11:01 | XMS_ITS | Encounter Summary ---
:1955 Author Organization [facility] Address [address] [place] [address] Care Team Providers Name Role Phone Samantha Stauffer MD Primary Care Provider [phone] Reason for Visit Auth/Cert Specialty Diagnoses / Procedures Referred By Contact Refer red To Contact Diagnoses Parkinson's disease (HRC) Procedures RIGHT DEEP BRAIN STIMULATOR GENERATOR REPLACEMENT Referral ID Status Reason Start Date Expiration Date Visits Requ ested Visits Authorized [id number] 1 1 Encounter Details Date Type Department Care Team Description 12/12/2019 Hospital Encounter Mandae[facility] Operating Clementine Kaiser MD Parkinson's disease Room 3931 [facility] [address] [place] [address] [place] [address] [phone] Social History Tobacco Use Types Packs/Day Years [...] upper arm muscles. This includes pushing a associate vice president or vacuum and mopping floors. It also [...] can you learn more? 1. Go to [email or web address] or [email or web address] Earth ProductsraAlton Lane. 2. Enter D150 in the search box. Current as of: April 09, 2019?Content Version: 12.4 ?? [employer]. Care instructions adapted under license by your healthcare professional. If you have questions abouta medical condition or this instruction, always ask your healthcare professional. [employer] disclaims any warranty or liability for your [...] on Keflex including possible side effects. Prescriptions [facility] in [place]. Belongings checklist reviewed with patient and belongings [...] Kaiser MD - 12/12/2019 8:17 AM CDT [facility] Operative Note Surgery Date: 12/12/2019 Primary Surgeon: [...] 8-10 minutes) Implants: Activa PC Model number [id number] Serial No: [id number] Post-op Diagnosis: Parkinson's Disease, Right Infraclavicular IPG [...] - Rapid (COVID-19) (12/12/2019 6:06 AM CDT) [facility] Method Time Signature COVID-19 Not Not 12/12/2019 [facility] Interpretation Detected Detected 7:04 AM CDT LABORATORY Specimen Anatomical Collection Method Collection Time Receive d Time (Source) Location / / Volume Laterality Swab (Source Non-blood 12/12/2019 6:06 AM 0 6:09 Required) Collection / CDT AM CDT Unknown Narrative [facility] - 12/12/2019 7:04 A M CDT Test performed by real-time PCR. This test has been authorized by the FDA under an Emergency Use Authorization (EUA) for use by authorized laboratories. Jorge L Kaiser MD LAB_1 Performing Organization Address City/State/ZIP Code Phon e Number [facility] [address] [place] [address] documented in this encounter Visit Diagnoses Diagnosis Parkinson's disease (HRC) - Primary documented in this encounter Admitting Diagnoses Diagnosis Parkinson's disease (HRC) documented in this encounter Administered Medications Inactive Administered Medications - up to 3 most recent administrations Medication Order MAR Action Action Date Dose Rate Site bupivacaine-epinephrine PF Given 12/12/2019 7:58 AM CDT 20 mL (SENSORCAINE) 0.25% -1:089107 injection ONCE PRN, Starting on Stacey 12/12/19 [...] (COMPLETED) 0735 (Given - Provider: Luis Anaya, CIRCLE SHEAR OPERATOR, BOAT HOIST OPERATOR) 2 g, Intravenous, Administer over 30 Min [...] (Anesthesia Fluid - Provider: Luis Anaya APRN, BOAT HOIST OPERATOR) 25 mL/hr, Intravenous, at 25 mL/hr, CONT [...] Lozenge, Oral, Q2H PRN, Throat Pain, Starting [facility] 12/12/19 at 0 957 bisacodyl (DULCOLAX) rectal suppository 10 mg 10 mg, Rectal, DAILY PRN, Other, Moderat e Constipation, Starting [facility] 12/12/19 at 0830, If unable to take oral senna (SENOKOT) or senna (SENOKOT) is ineffective., Post-op bupivacaine-epinephrine PF (SENSORCAINE) 0.25% -1:647805 injecti on 0758 (Given - Provider: Jorge L Kaiser MD) ONCE PRN, Starting [facility] 12/12/19 at 0758, Intra-op gentamicin 80 mg-clindamycin 900 mg in s odium chloride 1000 mL (DABS) irrigation solution 0802 (Given - Provid er: Jorge L Kaiser MD) ONCE PRN, Starting [facility] 12/12/19 at 0802, Intra-op HYDROcodone-acetaminophen (NORCO) 5-325 MG per tablet 1-2 Tablet 1-2 Tablet, Oral, Q4H PRN, Other, Modera te Pain (pain score 5-7), Starting [facility] 12/12/19 at 0830, Post-op HYDROmorphone (DILAUDID) injection 0.3-0.5 mg 0.3-0.5 mg, Intravenous, Q2H PRN, Other, Severe Pain (pain score 8-10) if unable to take oral medications or for pain score increasing by 3 in 30 minutes, Starting [facility] 12/12/19 at 1216, May administer 1 hour after ORAL opioid administration if given for pain score escalation. Do NOT administer at the same time as ORAL opioids. HOLD if on CRUSHER PLANT OPERATOR., Post-op lidocaine (UROJET) 2 % prefilled syringe [...] time as IV opioids. HOLD if on CRUSHER PLANT OPERATOR., Post-op senna (SENOKOT) tablet 1-2 Tablet 1-2 Tablet, Oral, BID PRN, Other, Modera te Constipation, Starting [facility] 12/12/19 at 0830, Hold for loose stools, Post-op documented in this encounter Care Teams Travel Clerk Relationship Specialty Start Date End Date Samantha Stauffer MD PCP - General Family Practice 12/12/191999 [place] [address] documented as of this encounter
--- OUTSIDE RECORDS SUMMARY | 2022-01-28 11:01 | XMS_ITS | Encounter Summary ---
:1955 Author Organization [facility] Address [address], [place] [address] Care Team Providers Name Role Phone Lurdes Thomas MD Primary Care Provider Reason for Referral (Routine) - Incomplete Specialty Diagnoses / Procedures Referred By Contact Refer red To Contact Diagnoses Parkinson's disease (HRC) Jorge L Kaiser MD Procedures Case Request OR - Neurosurgery: RIGHT DEEP BRAIN STIMULATOR GENERATOR REPLACEMENT [address] [place] [address] Referral ID Status Reason Start Date Expiration Date Visits V isits Requested Authorized [id number] Incomplete 09/18/2019 12/17/2020 1 1 Encounter Details Date Type Department Care Team Description 09/18/2019 [facility] Jorge L Kaiser MD Parkinson's disease 3931 Neurosurgery 3931 [facility] (Primary Dx) 3931 [place] [address] [place] [address] [phone] Social History Tobacco Use Types Packs/Day Years [...] Primary documented in this encounter Care Teams Primer Supervisor Relationship Specialty Start Date End Date Serum, Lurdes C, MD PCP - General 06/18/14 12/11/19 documented as of this encounter
--- OUTSIDE RECORDS SUMMARY | 2022-01-28 11:01 | XMS_ITS | Encounter Summary ---
:1955 Author Organization [facility] Address [address] [place] [address] Care Team Providers Name Role Phone Lurdes Thomas MD Primary Care Provider Reason for Visit Reason Comments Refill Encounter Details Date Type Department Care Team Description 08/21/2019 Refill [facility] Neuroscience Maria Esther Reis MD Refill Center Neurology 3931 [facility] [address] [place] [address] [place] [address] [phone] Social History Tobacco Use Types Packs/Day Years [...] filedocumented in this encounter Care Teams Health Program Specialist Relationship Specialty Start Date End Date Lurdes Thomas MD PCP - General 06/18/14 12/11/19 documented as of this encounter
--- OUTSIDE RECORDS SUMMARY | 2022-01-28 11:01 | XMS_ITS | Encounter Summary ---
:1955 Author Organization [facility] Address [address], [place] [address] Care Team Providers Name Role Phone Samantha Stauffer MD Primary Care Provider [phone] Reason for Visit Reason Comments Labs Needed Encounter Details Date Type Department Care Team Description 11/27/2019 Telephone Specialty Center 393 1 Neurosurgery Aurora Ruiz, RN Labs Needed 3931 [place], [place] [id number] Social History Tobacco Use Types Packs/Day Years Used Date Smoking Tobacco: Never Smokeless Tobacco: Never Alcohol Use Standard Drinks/Week Comments Yes 0 (1 standard drink = 0.6 oz pure alcoho l) Sex Assigned at Date Recorded Not on file documented as of this encounter Nursing Notes Aurora Ruiz, RN - 11/27/2019 3:36 PM CDT Covid test ordered. MRSA test ordered and faxed to [facility]. Emailed surgical teaching information. documented in this encounter Plan of Treatment Not on filedocumented as of this encounter Visit Diagnoses Diagnosis Preop testing - Primary Preoperative examination, unspecified documented in this encounter Care Teams Neonatal Nurse Relationship Specialty Start Date End Date Samantha Stauffer MD PCP - General Family Practice 12/12/191999 [place] [address] documented as of this encounter
--- OUTSIDE RECORDS SUMMARY | 2022-01-28 11:01 | XMS_ITS | Encounter Summary ---
:1955 Author Organization [facility] Address [address] [place] [address] [place] [address] Care Team Providers Name Role Phone Samantha Stauffer MD Primary Care Provider [phone] Reason for Visit Auth/Cert Specialty Diagnoses / Procedures Referred By Contact Refer red To Contact Diagnoses Parkinson's disease (HRC) Procedures RIGHT DEEP BRAIN STIMULATOR GENERATOR REPLACEMENT Referral ID Status Reason Start Date Expiration Date Visits Requ ested Visits Authorized [id number] 1 1 Encounter Details Date Type Department Care Team Description 12/12/2019 Surgery [facility] Jorge L Kaiser MD RIGHT DEEP BRAIN Room 3931 [facility] STIMULATOR GENERATOR [address] [place], [place] [address] [phone] Social History Tobacco Use Types Packs/Day Years [...] documented in this encounter Discharge Instructions Discharge InstructionsRubian Gomez RN - 12/12/2019 9:00 AM CDT [...] upper arm muscles. This includes pushing a knitted garment finisher or vacuum and mopping floors. It also [...] can you learn more? 1. Go to [email or web address] city [email or web address] [email or web address]-the [email or web address].merary or [email or web address]. 2. Enter D150 in the search box. Current as of: April 09, 2019?Content Version: 12.4 ?? [employer]. Care instructions adapted under license by your healthcare professional. If you have questions abouta medical condition or this instruction, always ask your healthcare professional. [employer] disclaims any warranty or liability for your [...] on Keflex including possible side effects. Prescriptions [facility] in [place]. Belongings checklist reviewed with patient and belongings [...] Kaiser MD - 12/12/2019 8:17 AM CDT [facility] Operative Note Surgery Date: 12/12/2019 [...] 8-10 minutes) Implants: Activa PC Model number [id number] Serial No: [id number] Post-op Diagnosis: Parkinson's Disease, Right Infraclavicular IPG [...] - Rapid (COVID-19) (12/12/2019 6:06 AM CDT) [facility] Method Time Signature COVID-19 Not Not [...] City/State/ZIP Code Phon e Number [facility] [address] [place] [address] documented in this encounter Visit Diagnoses Diagnosis Parkinson's disease (HRC) - Primary Parkinson's disease (HRC) documented in this encounter Admitting Diagnoses Diagnosis Parkinson's disease (HRC) documented in this encounter Administered Medications Inactive Administered Medications - up to 3 most recent administrations Medication Order MAR Action Action Date Dose Rate Site bupivacaine-epinephrine PF Given 12/12/2019 7:58 AM CDT 20 mL (SENSORCAINE) 0.25% -1:[id number] injection ONCE PRN, Starting on Stacey 12/12/19 [...] (COMPLETED) 0735 (Given - Provider: Luis Anaya, WASH BOX OPERATOR, DENTAL CHAIRSIDE ASSISTANT) 2 g, Intravenous, Administer over 30 Min [...] (Anesthesia Fluid - Provider: Luis Anaya APRN, DENTAL CHAIRSIDE ASSISTANT) 25 mL/hr, Intravenous, at 25 mL/hr, CONT INUOUS, Starting Stacey 12/12/19 at 0615, Administer on all preop surgery patients, ages 12 and older, unless specified differently in the Protocol for Preop Initiation of IV fluids Order Set., Pre-op NaCl 0.9%-KCl 20 mEq/liter infusion 0900 (Due) Intravenous, at 75 mL/hr, CONTINUOUS, Starting [facility] 12/12/19 at 09 00, Post-op PRN Medication Order 12/10/2019 12/11/2019 12/12/2019 acetaminophen (TYLENOL) tablet 650 mg 650 mg, Oral, Q4H PRN, Other, Mild Pain (pain score 1-4), Starting [facility] 12/12/19 at 0830, Every 4 hours [...] is ineffective., Post-op bupivacaine-epinephrine PF (SENSORCAINE) 0.25% -1:[id number] injecti on 0758 (Given - Provider: Jorge L Kaiser MD) ONCE PRN, Starting [facility] 12/12/19 at 0758, Intra-op gentamicin 80 mg-clindamycin 900 mg in s odium chloride 1000 mL (DABS) irrigation solution 0802 (Given - Provid er: Jorge L Kaiser MD) ONCE PRN, Starting [facility] 12/12/19 at 0802, Intra-op HYDROcodone-acetaminophen (NORCO) [...] time as ORAL opioids. HOLD if on MENS LOCKER ROOM ATTENDANT., Post-op lidocaine (UROJET) 2 % prefilled syringe [...] time as IV opioids. HOLD if on MENS LOCKER ROOM ATTENDANT., Post-op senna (SENOKOT) tablet 1-2 Tablet 1-2 Tablet, Oral, BID PRN, Other, Modera te Constipation, Starting Stacey 12/12/19 at 0830, Hold for loose stools, Post-op documented in this encounter Care Teams Director Of Creative Services Relationship Specialty Start Date End Date Samantha Stauffer MD PCP - General Family Practice 12/12/191999 [place] [address] documented as of this encounter
--- OUTSIDE RECORDS SUMMARY | 2022-01-28 11:01 | XMS_ITS | Encounter Summary ---
:1955 Author Organization [facility] Address [address] [address] Care Team Providers Name Role Phone Samantha Stauffer MD Primary Care Provider [phone] Reason for Visit Auth/Cert Specialty Diagnoses / Procedures Referred By Contact Refer red To Contact Diagnoses Parkinson's disease (HRC) Procedures RIGHT DEEP BRAIN STIMULATOR GENERATOR REPLACEMENT Referral ID Status Reason Start Date Expiration Date Visits Requ ested Visits Authorized [id number] 1 1 Encounter Details Date Type Department Care Team Description 12/12/2019 Anesthesia Event [facility] Migel Portillo MD [address] [place] [address] [facility] Nasim Armstrong MD [address] [place] [address] [place] [address] Anesthesia Record Procedure Summary Procedure [...] Portillo MD - 12/12/2019 11:16 AM CDT [facility] Anesthesia Post-op Note Patient: Andrew Chalberg Post-Op [...] Armstrong MD - 12/12/2019 7:16 AM CDT [facility] Anesthesia Pre-op Evaluation Procedure: Procedure(s): Right - [...] benefits and alternatives discussed with: Patient or Adjutant General agree tothe anesthesia treatment plan and Patient. [...] mL/hr documented in this encounter Care Teams Stop Attacher Relationship Specialty Start Date End Date Samantha Stauffer MD PCP - General Family Practice 12/12/191999 [place] [address] documented as of this encounter
--- OUTSIDE RECORDS SUMMARY | 2022-01-28 11:01 | XMS_ITS | Encounter Summary ---
:1955 Author Organization [facility] Address [address], [place] [address] Care Team Providers Name Role Phone Samantha Stauffer MD Primary Care Provider [phone] Reason for Referral Medication Prior Authorization (Routine) - Authorized Specialty Diagnoses / Procedures Referred By Contact Refer red To Contact Maria Esther Phan MD [address] [place], [place] [address] Referral ID Status Reason Start Date Expiration Date Visits V isits Requested Authorized [id number] Authorized 1 1 CHANGER Reason for Visit Reason Onset Date Comments Refill 07/15/2020 Amantadine HCl ER (G OCOVRI) 137 MG CP24 Encounter Details Date Type Department Care Team Description 07/15/2020 [facility] (Am[facility]adine HCl [facility] MD Prem ER (GOCOVRI) 137 MG Neurology 3931 [facility] CP24) [address] [place] [address] [phone] (Wo rk) Social History Tobacco Use Types Packs/Day Years Used Date Smoking Tobacco: Never Smokeless Tobacco: Never Alcohol Use Standard Drinks/Week Comments Yes 0 (1 standard drink = 0.6 oz pure alcoho l) Sex Assigned at Date Recorded Not on file documented as of this encounter Nursing Notes Shledon Mays - 07/15/2020 8:48 AM CST Fax received requesting Amantadine HCl ER (GOCOVRI) 137 MG CP24 from [facility] Requested Prescriptions Pending Prescriptions Disp Refills ??? Amantadine HCl ER (GOCOVRI) 137 MG CP24 60 Capsule 11 Sig: Take 2 Capsules by mouth daily at bedtime. Sheldon Masy 07/15/2020, 8:49 AM CHANGER documented in this encounter Plan of Treatment Not on filedocumented as of this encounter Visit Diagnoses Not on filedocumented in this encounter Care Teams Medical Accountant Relationship Specialty Start Date End Date Samantha Stauffer MD PCP - General Family Practice 12/12/191999 [place] [address] documented as of this encounter
--- OUTSIDE RECORDS SUMMARY | 2022-01-28 11:01 | XMS_ITS | Encounter Summary ---
:1955 Author Organization [facility] Address [address] [place] [address] Care Team Providers Name Role Phone Samantha Stauffer MD Primary Care Provider [phone] Reason for Visit Reason Comments Post-Op Check Encounter Details Date Type Department Care Team Description 01/24/2020 Telemedicine Specialty Center 3931 Divina Kaiser MD Parkinson's disease Neurosurgery 3931 [facility] (Primary Dx) [facility] [address] [phone] Social History Tobacco Use Types Packs/Day Years [...] Primary documented in this encounter Care Teams Legal Editor Relationship Specialty Start Date End Date Samantha Stauffer MD PCP - General Family Practice 12/12/191999 [place] [address] documented as of this encounter
--- OUTSIDE RECORDS SUMMARY | 2022-01-28 11:01 | XMS_ITS | Encounter Summary ---
:1955 Author Organization [facility] Address [address] [address] Care Team Providers Name Role Phone Lurdes Thomas MD Primary Care Provider Reason for Visit Reason Comments Prior Authorization Request update needed - Gocovri Encounter Details Date Type Department Care Team Description 10/10/2019 Telephone [facility] Walker [facility] Neuroscience Center MD Prem Request (update needed Neurology 39[address] [facility] - Gocovri) [address] [place] [address] [place], [place] [phone] [address] Social History Tobacco Use Types Packs/Day Years [...] Matt Cates RN 10/10/2019, 11:43 AM Matt Catse RN - 10/10/2019 11:12 AM CDT Nurse requested ePA through Epic. Matt Cates RN 10/10/2019, 11:12 AM Maria Esther Phan MD - 10/10/2019 11:07 AM CDT Blaise, can you please see if there is anything we need to do? Jeannette Dee - 10/10/2019 10:53 AM CDT [facility] on status for PA for Gocovri. Pt needs this medication by Monday. Please call pt back and advise. THanks Jeannette Dee 10/10/2019, 10:53 AM documented in this encounter Plan of Treatment Not on filedocumented as of this encounter Visit Diagnoses Not on filedocumented in this encounter Care Teams Lumber Carrier Operator Relationship Specialty Start Date End Date Lurdes Thomas MD PCP - General 06/18/14 12/11/19 documented as of this encounter
--- OUTSIDE RECORDS SUMMARY | 2022-01-28 11:01 | XMS_ITS | Encounter Summary ---
:1955 Author Organization [facility] Address [address] [place] [address] Care Team Providers Name Role Phone Samantha Stauffer MD Primary Care Provider [phone] Reason for Visit Reason Comments Nurse Visit Encounter Details Date Type Department Care Team Description 12/25/2019 Office Visit Specialty Center 3931 Nurse, P3931 Nsu En counter for post Neurosurgery surgical wound check 3931 [facility]. (Primary Dx) [place], [place] [address] Social History Tobacco Use Types Packs/Day Years [...] in another medication such as Percocet or Dilworth). ?? If you are still taking prescription [...] Primary documented in this encounter Care Teams Transformer Assembly Supervisor Relationship Specialty Start Date End Date Samantha Stauffer MD PCP - General Family Practice 12/12/[address] [place] [address] documented as of this encounter
--- OUTSIDE RECORDS SUMMARY | 2022-01-28 11:01 | XMS_ITS | Encounter Summary ---
:1955 Author Organization [facility] Address [address], [place] [address] Care Team Providers Name Role Phone Lurdes Thomas MD Primary Care Provider Reason for Referral Consult/Transfer Care (Routine) - Closed Specialty Diagnoses / Procedures Referred By Contact Refer red To Contact Neurosurgery Diagnoses Parkinson's disease (HRC) Maria Esther Phan MD McIver, Jon I, MD [address] [facility] [address] [place], [place] [address] [place] [address] Fax: Referral ID Status Reason Start Date Expiration Date Visits Requ ested Visits Authorized [id number] Closed 11/13/2019 02/11/2021 1 1 Scheduling Instructions Your provider [facility]. You may call [phone], option [phone] to schedule your appointment. We suggest you call your health insurance breanna about your coverage and benefits for this appointment. Reason for Visit Reason Comments FYI DBS battery Encounter Details Date Type Department Care Team Description 11/13/2019 Telephone Maria Esther Mckeon (DB S battery) Neuroscience Center MD Prem Neurology 39[address] [facility] [address] [place] [address] [phone] (Wo rk) Social History Tobacco Use Types [...] him if he mixed systems (I.egot a [employer] battery, with Medtronic lead) this is [...] to call and schedule the battery replacement. [place] nursing, can you facilitate with Dr. Kaiser's [...] Primary documented in this encounter Care Teams Rubber Covering Machine Operator Relationship Specialty Start Date End Date Lurdes Thomas MD PCP - General 06/18/14 12/11/19 documented as of this encounter
--- OUTSIDE RECORDS SUMMARY | 2022-01-28 11:01 | XMS_ITS | Encounter Summary ---
:1955 Author Organization [facility] Address [address], [place] [address] Care Team Providers Name Role Phone Lurdes Thomas MD Primary Care Provider Reason for Visit Reason Onset Date Comments Refill 08/01/2019 Encounter Details Date Type Department Care Team Description 08/01/2019 [facility]ill [facility] Neuroscience Maria Esther Reis MD Refill Center Neurology 3931 [facility] [address] [place] [address] [place] [address] [phone] Social History Tobacco Use Types Packs/Day Years [...] at bedtime Qty: 60 Last Refill: 07/08/2019 Class B Driver/Appt Center: Was the pharmacy entered into the Preferred Pharmacy field? Yes Abi Laughlin 08/01/2019, 10:31 AM documented in this encounter Plan of Treatment Not on filedocumented as of this encounter Visit Diagnoses Not on filedocumented in this encounter Care Teams Hemming And Tacking Machine Operator Relationship Specialty Start Date End Date Lurdes Thomas MD PCP - General 06/18/14 12/11/19 documented as of this encounter
--- OUTSIDE RECORDS SUMMARY | 2022-01-28 11:01 | XMS_ITS | Encounter Summary ---
:1955 Author Organization [facility] Address [address] [place] [address] Care Team Providers Name Role Phone Lurdes Thomas MD Primary Care Provider Reason for Visit Reason Comments Concerns Battery getting low Encounter Details Date Type Department Care Team Description 08/28/2019 Telephone [facility] Walker Concern s (Battery Neuroscience Center MD Prem getting low) Neurology 3931 [facility] [address] [place] [address] [place], [place] [phone] (Wo rk) Social History Tobacco Use Types [...] 08/30/2019 at 3:[address] Sylvester Laguhlin 08/29/2019, 11:30 AM Cristhian Dueñas - 08/28/2019 4:18 PM CDT Called pt to change appt left message Cristhian Dueñas 08/28/2019, 4:21 PM Matt Cates RN - 08/28/2019 3:04 PM CDT Shoaib: please call patient/, Natasha and assist in scheduling a video visit with Dr. Phan on 09/13/2019. Please help them set up the [facility] [employer] madhav. Matt Cates RN 08/28/2019, 3:04 PM [...] on filedocumented in this encounter Care Teams Scrum Coach Relationship Specialty Start Date End Date Lurdes Thomas MD PCP - General 06/18/14 12/11/19 documented as of this encounter
--- OUTSIDE RECORDS SUMMARY | 2022-01-28 11:01 | XMS_ITS | Encounter Summary ---
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 [address] [place], [place] [phone] Social History Tobacco Use Types Packs/Day Years [...] any sensory deficits. There are no tremors. [id number] is accurate. There is mild bradykinesia. He [...] coordination documented in this encounter Care Teams Cook Chef Relationship Specialty Start Date End Date Lurdes Thomas MD PCP - General 06/18/14 12/11/19 documented as of this encounter
--- OUTSIDE RECORDS SUMMARY | 2022-01-28 11:01 | XMS_ITS | Encounter Summary ---
:1955 Author Organization [facility] Address [address] [place] [address] Care Team Providers Name Role Phone Samantha Stauffer MD Primary Care Provider Reason for Visit Reason Comments Prior Authorization Request Amantadine HCl ER (GOCOVRI ) 137 MG CP24 Encounter Details Date Type Department Care Team Description 10/27/2020 [facility]phone [facility] Prior A uthorization Neuroscience Center MD Prem Request (Amantadine Neurology [address] HCl ER (GOCOVRI) [address] MG CP24) [place] [address] [place], [place] [phone] [id number] Social History Tobacco Use Types Packs/Day Years Used Date Smoking Tobacco: Never Smokeless Tobacco: Never Alcohol Use Standard Drinks/Week Comments Yes 0 (1 standard drink = 0.6 oz pure alcoho l) Sex Assigned at Date Recorded Not on file documented as of this encounter Nursing Notes Chloé Denny - 11/06/2020 8:37 AM CDT Prior authorization approved -Nida Payer: [facility] CaseId:[id number];Status:Approved;Review Type:Prior Auth;Coverage Start Date:09/27/2020;Coverage End Date:10/27/2021; RN [...] filedocumented in this encounter Care Teams Manager Brand Relationship Specialty Start Date End Date Samantha Stauffer MD PCP - General Family Practice 12/12/[address]1999 [place] [address] documented as of this encounter
--- OUTSIDE RECORDS SUMMARY | 2022-01-28 11:01 | XMS_ITS | Encounter Summary ---
:1955 Author [facility] Address [address], [place] [address] Care Team Providers Name Role Phone Lurdes Thomas MD Primary Care Provider Reason for Visit Reason Comments Video Visit Consult/Transfer Care (Routine) - Closed Specialty Diagnoses / Procedures Referred By Contact Refer red To Contact Diagnoses Parkinson's disease (HRC) Maria Esther Phan MD [address] [place], [place] [address] Referral ID Status Reason Start Date Expiration Date Visits Requ ested Visits Authorized [id number] Closed 09/12/2019 12/11/2020 1 1 Encounter Details Date Type Department Care Team Description 09/18/2019 Telemedicine Specialty Center 3931 Divina Kaiser MD Parkinson's disease Neurosurgery [address] [facility] (Primary Dx) 3931 [facility] [address] [phone] Social History Tobacco Use Types Packs/Day Years [...] screening: no ?? Confirmed that patient has [id number] downloaded and ready: Yes ?? Patient is aware that provider will call at appointment time. ?? Jorge L Kaiser MD - 09/18/2019 1:00 PM CDT Date of Service: 09/18/19 nAdrew Pang is a 64 y.o. male. Neurosurgery [...] Primary documented in this encounter Care Teams Tank Stave Assembler Relationship Specialty Start Date End Date Lurdes Thomas MD PCP - General 06/18/14 12/11/19 documented as of this encounter
--- OUTSIDE RECORDS SUMMARY | 2022-01-28 11:01 | XMS_ITS | Encounter Summary ---
:1955 Author Organization [facility] Address [address] [address] Care Team Providers Name Role Phone Samantha Stauffer MD Primary Care Provider Reason for Visit Reason Comments Refill Encounter Details Date Type Department Care Team Description 05/24/2020 Refill [facility] Neuroscience Maria Esther Reis MD Refill Center Neurology 3931 [facility] [address] [facility] [place] [address] [place] [address] [phone] Social History Tobacco Use Types Packs/Day Years [...] on filedocumented in this encounter Care Teams Gelatin Powder Mixer Relationship Specialty Start Date End Date Samantha Stauffer MD PCP - General Family Practice 12/12/191999 [place] [address] documented as of this encounter
--- OUTSIDE RECORDS SUMMARY | 2022-01-28 11:01 | XMS_ITS | Encounter Summary ---
:1955 Author Organization [facility] Address [address] [place] [address] Care Team Providers Name Role Phone Lurdes Thomas MD Primary Care Provider Reason for Referral Consult/Transfer Care (Routine) - Closed Specialty Diagnoses / Procedures Referred By Contact Refer red To Contact Diagnoses Parkinson's disease (HRC) Richard Phan MD [address] [place], [place] [address] Referral ID Status Reason Start Date Expiration Date Visits Requ ested Visits Authorized [id number] Closed 09/12/2019 12/11/2020 1 1 Scheduling Instructions Your provider has recommended an appoint ment with Jasmine Ramirez. You may call [phone] to schedule your appoi ntment. If you do not schedule an appointment within the next 1 to 3 business days, we will call you to help arrange your appointment. We suggest you call your [facility] insurance company about your coverage and benefits for this appointment. Reason for Visit Reason Comments QUESTIONS, GENERAL UPDATE Encounter Details Date Type Department Care Team Description 09/02/2019 [facility]phone [facility], [facility]; Neuroscience Center MD Prem UPDATE Neurology [address] [place] [address] [place], [place] [phone] (Wo rk) Social History Tobacco Use Types [...] Cates RN - 09/12/2019 11:36 AM CDT [facility] Matt Cates RN 09/12/2019, 11:37 [...] that we are restarting battery changes at [facility] with Dr. Kaiser, so if they wish [...] will be limited to drop off and cigar packer and picker on the day of surgery. A [...] Primary documented in this encounter Care Teams Care Attendant Relationship Specialty Start Date End Date Lurdes Thomas MD PCP - General 06/18/14 12/11/19 documented as of this encounter
--- OUTSIDE RECORDS SUMMARY | 2022-01-28 11:01 | XMS_ITS | Encounter Summary ---
:1955 Author Organization [facility] Address [address], [place] [address] Care Team Providers Name Role Phone Samantha Stauffer MD Primary Care Provider [phone] Reason for Visit Reason Comments QUESTIONS, GENERAL Encounter Details Date Type Department Care Team Description 07/24/2020 Telephone Health[facility] Esther Brower, GENERAL [facility] MD Prem Neurology [address] [facility] [address] [place] [phone] (Wo rk) Social History Tobacco Use Types [...] a follow up appt with him at [facility] [place] [place]. Jeannette Porras RN Maximo Sadler - 07/24/2020 9:50 AM CST Patient is requesting a call back regarding questions he has about covid vaccine and also about DBS battery. Please call back when available, Thank you. Maximo Julio 07/24/2020, 9:52 AM D BANK ORDER CONTROL CLERK documented in this encounter Plan of Treatment Not on filedocumented as of this encounter Visit Diagnoses Not on filedocumented in this encounter Care Teams Quality Rep Relationship Specialty Start Date End Date Samantha Stauffer MD PCP - General Family Practice 12/12/191999 [place] [address] documented as of this encounter
--- OUTSIDE RECORDS SUMMARY | 2022-01-28 11:01 | XMS_ITS | Encounter Summary ---
:1955 Author Organization [facility] Address [address] [place] [address] Care Team Providers Name Role Phone Lurdes Thomas MD Primary Care Provider Reason for Visit Reason Comments QUESTIONS, GENERAL Encounter Details Date Type Department Care Team Description 09/17/2019 Telephone [facility] Maria Esther Phan, GENERAL [facility] MD Prem Neurology [address] [facility] [address] [place] [place] [phone] (Wo rk) Social History Tobacco Use Types [...] the top of his limit. Gave him [facility] DBS nurse line to call if he had programing questions. FYI. Maria Esther Phan MD - 09/23/2019 12:30 PM CDT OK, I will ask nursing for DBS programming with [facility], to see if we can put off [...] Phan may have patient to go to [facility] to have an adjustment. They would be interested in this if it is a possibility. Dr. Phan, please review and advise. Matt Cates RN 09/23/2019, 12:18 PM Sylvia Burgess - 09/23/2019 10:10 AM CDT Spouse called in, wanting to speak with Blaise about his battery and could be that it needs adjusting.Please call [phone] Sylvia Burgess 09/23/2019, 10:11 AM Matt Cates [...] on filedocumented in this encounter Care Teams Panel Machine Setter Relationship Specialty Start Date End Date Lurdes Thomas MD PCP - General 06/18/14 12/11/19 documented as of this encounter
--- OUTSIDE RECORDS SUMMARY | 2022-01-28 11:02 | XMS_ITS | Encounter Summary ---
:1955 Author Organization [facility] Address [address], [place] [address] Care Team Providers Name Role Phone Lurdes Thomas MD Primary Care Provider Reason for Referral Consult/Transfer Care (Routine) - Closed Specialty Diagnoses / Procedures Referred By Contact Refer red To Contact Diagnoses Parkinson's disease (HRC) Maria Esther Phan MD [address] [place], [place] [address] Referral ID Status Reason Start Date Expiration Date Visits Requ ested Visits Authorized [id number] Closed 08/08/2017 11/07/2018 1 1 Scheduling Instructions Your provider has recommended an appoint ment with [facility]. You may call [phone] or marino bardales [phone] to schedule your appointment. If you do [...] Radha Neurology Maria Esther Phan Parkinson's disease [address] Dae Amaro MD ([facility]) (Primary Dx) Drive [address] [facility] [address] [place], [place] [phone] (Wo rk) Social History Tobacco Use [...] Body Mass Index 24.99 07/08/2014 8:56 AM DINING CAR HOP documented in this encounter Patient Instructions Patient [...] can assist with med reminders, such as picsell, that allows you to program times and different reminders. documented in this encounter Progress Notes Maria Esther Phan MD - 08/08/2017 12:00 PM CDT NAME: DEIDRE PANG MR#: [id number] CSN: [id number] AUTHENTICATING CLINICIAN: Maria Esther Phna MD CONFIRM #: [id number] LOC: 00525 CLINIC PROGRESS NOTE DATE OF VISIT: 08/08/2017 : 1955 LOCATION: [place]. HISTORY OF PRESENT ILLNESS: Mr. Pang is [...] lower extremities distally.Coordination: No tremor seen today. Oeitds-fwxj-zzxxuq is adequate. There is xolx-ts-sfrpdzzw dyskinesia, more so on the left than [...] sooner if necessary. SAP:MEDQ C: CONFIRM #: [id number] documented in this encounter Plan of Treatment Scheduled Referrals Name Type Priority Associated Diagnoses Order S chedule DBS PROGRAMMING CONSULT Referral Routine Parkinson's disea se Ordered: 08/08/2017 (AMB) (HR) documented as of this encounter Visit Diagnoses Diagnosis Parkinson's disease (HRC) - Primary documented in this encounter Care Teams Counselor Camp Relationship Specialty Start Date End Date Lurdes Thomas MD PCP - General 06/18/14 12/11/19 documented as of this encounter
--- OUTSIDE RECORDS SUMMARY | 2022-01-28 11:02 | XMS_ITS | Encounter Summary ---
:1955 Author Organization [facility] Address [address], [place] [address] Care Team Providers Name Role Phone Lurdes Thomas MD Primary Care Provider Reason for Visit Reason Comments Paperwork G[facility] Encounter Details Date Type Department Care Team Description 08/09/2017 Notes/Orders [facility] Doris Arauz, RN [address] corina [address] [place], [place] [address] Social History Tobacco Use Types Packs/Day Years Used Date Smoking Tobacco: Never Smokeless Tobacco: Never Alcohol Use Standard Drinks/Week Comments Yes 0 (1 standard drink = 0.6 oz pure alcoho l) Sex Assigned at Date Recorded Not on file documented as of this encounter Progress Notes Doris Arauz RN - 08/09/2017 2:43 PM CDT Faxed completed [facility] paperwork and Rx to [facility]. FAX: [phone] documented in this encounter Plan of Treatment Not on filedocumented as of this encounter Visit Diagnoses Not on filedocumented in this encounter Care Teams Watch Electrician Relationship Specialty Start Date End Date Lurdes Thomas MD PCP - General 06/18/14 12/11/19 documented as of this encounter
--- OUTSIDE RECORDS SUMMARY | 2022-01-28 11:02 | XMS_ITS | Encounter Summary ---
:1955 Author Organization [facility] Address [address] [address] Care Team Providers Name Role Phone Lurdes Thomas MD Primary Care Provider Reason for Visit Procedure/Equipment (Routine) - Incomplete Specialty Diagnoses / Procedures Referred By Contact Refer red To Contact Diagnoses Dysphagia, oropharyngeal phase [place], Maria Esther Amaro MD Procedures FL Video Swallow Study [address] [place], [place] [address] Referral ID Status Reason Start Date Expiration Date Visits V isits Requested Authorized [id number] Incomplete 06/24/2019 09/22/2020 1 1 Encounter Details Date Type Department Care Team Description 06/24/2019 Ancillary [facility] [place], Dysphagia, Procedure Neuroscience Center Maria Esther Amaro MD oropharyngeal phase Radiology [facility] [address] [place] [address] [place] [address] [facility] [phone] [place] [address] Social History Tobacco Use Types Packs/Day [...] PM Dysphagia, Resul ts for this STUDY MARKETING FINANCIAL ANALYST oropharyngeal phase procedur e are in the results section. documented in this encounter Results FL Video Swallow Study (06/24/2019 4:10 PM MARKETING FINANCIAL ANALYST) Anatomical Region Laterality Modality Neck, Chest Radio Fluoroscopy Specimen (Source) Anatomical Collection Method Collection Time Re ceived Time Location / / Volume Laterality 06/24/2019 4:10 PM MARKETING FINANCIAL ANALYST Narrative 06/24/2019 5:11 PM MARKETING FINANCIAL ANALYST EXAM: FL VIDEO SWALLOW STUDY LOCATION: [facility] DATE/TIME: 06/24/2019 4:10 PM [...] original. EXAM: FL VIDEO SWALLOW STUDY LOCATION: [facility] DATE/TIME: 06/24/2019 4:10 PM [...] (VARIBAR NECTAR) 40 Given 06/24/2019 4:12 PM MARKETING FINANCIAL ANALYST 20 mL % oral suspension 20 mL 20 mL, Oral, ONCE (NON-SCHEDULED), Starting on 06/24/19 at 1611, Until Discontinued, For 3 doses Inactive Administered Medications - up to 3 most recent administrations Medication Order MAR Action Action Date Dose Rate Site barium sulfate (ENTERO VU) Given 06/24/2019 4:12 PM MARKETING FINANCIAL ANALYST 20 mL suspension 20 mL 20 mL, Oral, ONCE (NON-SCHEDULED), Starting on Mon06/24/19 at 1611, For 1 dose barium sulfate (EZ-DISK) tablet 700 mg Given 06/24/2019 4:12 PM MARKETING FINANCIAL ANALYST 700 mg 700 mg, Oral, ONCE (NON-SCHEDULED), Starting on 06/24/19 at 1611, Until Mon06/24/19 at 1612, For 1 dose barium Sulfate (VARIBAR PUDDING) oral pudding 5 Given 06/24/2019 4:12 PM MARKETING FINANCIAL ANALYST 5 mL mL 5 mL, Oral, ONCE (NON-SCHEDULED), Starting on 06/24/19 at 1611, Until Mon06/24/19 at 1612, For 1 dose documented in this encounter Care Teams Blackjack Dealer Relationship Specialty Start Date End Date Lurdes Thomas MD PCP - General 06/18/14 12/11/19 documented as of this encounter
--- OUTSIDE RECORDS SUMMARY | 2022-01-28 11:02 | XMS_ITS | Encounter Summary ---
:1955 [facility] Address [address] [place] [address] Care Team Providers Name Role Phone Lurdes Thomas MD Primary Care Provider Reason for Referral Therapies (Routine) - Closed Specialty Diagnoses / Procedures Referred By Contact Refer red To Contact Diagnoses Dysphagia, unspecified type Parkinson's disease (HRC) Maria Esther Phan MD [address] [place], [place] [address] Referral ID Status Reason Start Date Expiration Date Visits Requ ested Visits Authorized [id number] Closed 06/17/2019 08/16/2019 1 1 Scheduling Instructions Your provider has recommended an appoint ment with a [facility] Therap[facility]. Please stop at the clinic check out desk for as sistance with scheduling or if you prefer to call for your appointment you may call [facility] at [phone]. We suggest you call your [facility] insurance company about your coverage and benefits for this appointment. FIC SIGNAL SUPERVISOR MAINTENANCE Reason for Visit Reason Comments REPORTING, NEW SYMPTOMS Encounter Details Date Type Department Care Team Description 06/17/2019 [facility]phone [facility] Prem SYMPTOMS Neurology [address] [address] [place], [place] [phone] (Wo rk) Social History Tobacco Use Types [...] no call back needed at this time. FIC SIGNAL SUPERVISOR MAINTENANCE Matt Cates RN - 06/17/2019 10:13 AM CST Nurse called Natasha and relayed message from Dr. Phan to her. She stated understanding and had no further questions at this time. She was in agreement with plan. Matt Cates RN 06/17/2019, 10:15 AM FIC SIGNAL SUPERVISOR MAINTENANCE Maria Esther Phan MD - 06/17/2019 10:05 AM CST They should have his PCP check him and possily do a CXR if indicated. The we can have him see speechtherapy for swallow evaluation - order entered. FIC SIGNAL SUPERVISOR MAINTENANCE Maximo Julio - 06/17/2019 8:16 AM CST Patients Natasha, calling to request call back regarding symptoms she is concerned about. She states the patient has been coughing for the past week and she thought it was due to a cold however, now she thinks it is from aspiration from Parkinson's. Please call her back when available, Thank you. FIC SIGNAL SUPERVISOR MAINTENANCE documented in this encounter Plan of Treatment Scheduled Referrals Name Type Priority Associated Diagnoses Order S chedule Speech Therapy Referral Routine Dysphagia, unspe cified type Ordered: 06/17/2019 Parkinson's disease (HRC) documented as of this encounter Visit Diagnoses Diagnosis Dysphagia, unspecified type - Primary Parkinson's disease (HRC) documented in this encounter Care Teams Parcel Post Order Clerk Relationship Specialty Start Date End Date Lurdes Thomas MD PCP - General 06/18/14 12/11/19 documented as of this encounter
--- OUTSIDE RECORDS SUMMARY | 2022-01-28 11:02 | XMS_ITS | Encounter Summary ---
:1955 Author Organization [facility] Address [address], [place] [address] Care Team Providers Name Role Phone Lurdes Thomas MD Primary Care Provider Encounter Details Date Type Department Care Team Description 05/06/2016 Notes/Orders [place] [facility] P, OTR/L [address] [place], [place] [address] [facility] [phone] [place] [address] (Wo rk) Social History Tobacco [...] physician. RODRIGUE Gandhi/Stefan 05/06/2016, 9:56 AM ' R GENERATION PLANT OPERATOR documented in this encounter Plan of Treatment Not on filedocumented as of this encounter Visit Diagnoses Not on filedocumented in this encounter Care Teams Finishing Range Operator Relationship Specialty Start Date End Date Lurdes Thomas MD PCP - General 06/18/14 12/11/19 documented as of this encounter
--- OUTSIDE RECORDS SUMMARY | 2022-01-28 11:02 | XMS_ITS | Encounter Summary ---
:1955 Author [facility] Address [address] [place] [address] Care Team Providers Name Role Phone Lurdes Thomas MD Primary Care Provider Reason for Visit Reason Comments Device Check Consult/Transfer Care (Routine) - Closed Specialty Diagnoses / Procedures Referred By Contact Refer red To Contact Diagnoses Parkinson's disease ([facility]) Maria Esther Phan MD [address] [place], [place] [address] Referral ID Status Reason Start Date Expiration Date Visits Requ ested Visits Authorized [id number] Closed 08/08/2017 11/07/2018 1 1 Encounter Details Date Type Department Care Team Description 08/08/2017 Nursing Visit [facility] [place] Hilario, Parkinson's disease ([facility]) (P rimary Dx); [address] [place] RN Encounter for fitting and adjustment of neuropacemaker of brain Drive [place], [place] [address] Social History Tobacco Use Types Packs/Day Years [...] Final settings: No changes were made Patient network programmer range: Left 2.4-2.8V Right 2.3-2.7 Total [...] cord) documented in this encounter Care Teams Door Paneler Relationship Specialty Start Date End Date Lurdes Thomas MD PCP - General 06/18/14 12/11/19 documented as of this encounter
--- OUTSIDE RECORDS SUMMARY | 2022-01-28 11:02 | XMS_ITS | Encounter Summary ---
:1955 Author [facility] Address [address] [place] [address] Care Team Providers Name Role Phone Lurdes Thomas MD Primary Care Provider Encounter Details Date Type Department Care Team Description 04/12/2019 Telephone [facility] Neuroscience Princess Phan, Center Neurology [address] [facility] [address] [place] [address] [place] [address] [phone] (Wo rk) Social History Tobacco Use Types [...] folder as COURT Laughlin 04/12/2019, 2:20 PM D MARKETING COORDINATOR documented in this encounter Plan of Treatment Not on filedocumented as of this encounter Visit Diagnoses Not on filedocumented in this encounter Care Teams Rn Social Services Relationship Specialty Start Date End Date Lurdes Thomas MD PCP - General 06/18/14 12/11/19 documented as of this encounter
--- OUTSIDE RECORDS SUMMARY | 2022-01-28 11:02 | XMS_ITS | Encounter Summary ---
:1955 Author [facility] Address [address] [address] Care Team Providers Name Role Phone Lurdes Thomas MD Primary Care Provider Encounter Details Date Type Department Care Team Description 05/05/2016 Notes/Orders [place] [facility] The [facility] Cerv[facility], [address] corina [place], [place] [address] [address] [phone] [place] [address] (Wo rk) Social History Tobacco [...] treatmentorder should be obtained from the physician. E IN THEATER ATTENDANT documented in this encounter Plan of Treatment Not on filedocumented as of this encounter Visit Diagnoses Not on filedocumented in this encounter Care Teams Copyman Relationship Specialty Start Date End Date Lurdes Thomas MD PCP - General 06/18/14 12/11/19 documented as of this encounter
--- OUTSIDE RECORDS SUMMARY | 2022-01-28 11:02 | XMS_ITS | Encounter Summary ---
:1955 Author Organization [facility] Address [address], [place] [address] Care Team Providers Name Role Phone Lurdes Thomas MD Primary Care Provider Reason for Visit Reason Onset Date Comments Refill 07/31/2018 Encounter Details Date Type Department Care Team Description 07/31/2018 Refill [facility] Neuroscience Maria Esther Reis MD Refill Center Neurology [address] [facility] [address] [facility] [place] [address] [place] [address] [phone] Social History Tobacco Use Types Packs/Day Years [...] on filedocumented in this encounter Care Teams Transfer And Pumphouse Operator Relationship Specialty Start Date End Date Lurdes Thomas MD PCP - General 06/18/14 12/11/19 documented as of this encounter
--- OUTSIDE RECORDS SUMMARY | 2022-01-28 11:02 | XMS_ITS | Encounter Summary ---
:1955 Author [facility] Address [address] [place] [address] Care Team Providers Name Role Phone Lurdes Thomas MD Primary Care Provider Reason for Visit Reason Comments Follow-up Encounter Details Date Type Department Care Team Description 11/02/2018 Office Visit [facility] d iseasmono (HRC) (Primary Dx); Neuroscience Center Maria Esther Amaro MD Dyskinesia due to Parkinson's disease (H RC); Neurology [address] [place] Vasovagal syncope; [address] [place] [address] [place], [place] [phone] [id number] Social History Tobacco Use Types Packs/Day Years [...] without abnormal responses. There are no tremors. Kmovwm-uwfs-gjhdwa and fkdq-vhjx-wmnk are accurate. There is minimal if any [...] unspecified documented in this encounter Care Teams Writer Technical Publications Relationship Specialty Start Date End Date Lurdes Thomas MD PCP - General 06/18/14 12/11/19 documented as of this encounter
--- OUTSIDE RECORDS SUMMARY | 2022-01-28 11:02 | XMS_ITS | Encounter Summary ---
:1955 Author Organization [facility] Address [address] [address] Care Team Providers Name Role Phone Lurdes Thomas MD Primary Care Provider Reason for Referral Procedure/Equipment (Routine) - Incomplete Specialty Diagnoses / Procedures Referred By Contact Refer red To Contact Diagnoses Dysphagia, oropharyngeal phase Maria Esther Phan MD Procedures FL Video Swallow Study [address] [place], [place] [address] Referral ID Status Reason Start Date Expiration Date Visits V isits Requested Authorized [id number] Incomplete 06/24/2019 09/22/2020 1 1 TENDER Reason for Visit Reason Comments Parkinson's Disease Therapies (Routine) - Closed Specialty Diagnoses / Procedures Referred By Contact Refer red To Contact Diagnoses Dysphagia, unspecified type Parkinson's disease (HRC) Maria Esther Phan MD [address] [place], [place] [address] Referral ID Status Reason Start Date Expiration Date Visits Requ ested Visits Authorized [id number] Closed 06/17/2019 08/16/2019 1 1 Encounter Details Date Type Department Care Team Description 06/24/2019 Office Visit Mesfin Fong, Dysphagia, Neuroscience Center PROCUREMENT ACCOUNTANT oropharyngeal phase Speech Therapy [address] (Primary Dx) [address] [place], [place] [address] [place] [address] [phone] Social History Tobacco Use Types Packs/Day Years Used Date Smoking Tobacco: Never Smokeless Tobacco: Never Alcohol Use Standard Drinks/Week Comments Yes 0 (1 standard drink = 0.6 oz pure alcoho l) Sex Assigned at Date Recorded Not on file documented as of this encounter Progress Notes Mesfin Morgan SLP - 06/24/2019 3:00 PM CST Pt seen, referred for MBSS TENDER documented in this encounter Plan of Treatment Not on filedocumented as of this encounter Results FL Video Swallow Study (06/24/2019 4:10 PM HOOK TENDER) Anatomical Region Laterality Modality Neck, Chest Radio Fluoroscopy Specimen (Source) Anatomical Collection Method Collection Time Re ceived Time Location / / Volume Laterality 06/24/2019 4:10 PM HOOK TENDER Narrative 06/24/2019 5:11 PM HOOK TENDER EXAM: FL VIDEO SWALLOW STUDY LOCATION: [facility] DATE/TIME: 06/24/2019 4:10 PM INDICATION: Difficulty [...] original. EXAM: FL VIDEO SWALLOW STUDY LOCATION: [facility] DATE/TIME: 06/24/2019 4:10 PM INDICATION: Difficulty [...] as described above. Maria Esther Phan MD [facility] documented in this encounter Visit Diagnoses Diagnosis Dysphagia, oropharyngeal phase - Primary Dysphagia, oropharyngeal phase documented in this encounter Care Teams Machine Staker Relationship Specialty Start Date End Date Lurdes Thomas MD PCP - General 06/18/14 12/11/19 documented as of this encounter
--- OUTSIDE RECORDS SUMMARY | 2022-01-28 11:02 | XMS_ITS | Encounter Summary ---
:1955 [facility] Address [address], [place] [address] Care Team Providers Name Role Phone Lurdes Thomas MD Primary Care Provider Reason for Visit Reason Comments Follow-up, NOS PD Encounter Details Date Type Department Care Team Description 05/04/2018 Office Visit [facility] Mcke[facility] on's disease (HRC) (Primary Dx); Neuroscience Center MD Prem Dyskinesia due to Parkinson's disease (H RC); Neurology [address] [facility] Vasovagal syncope [address] [place] [address] [place], [place] [phone] Social History Tobacco Use Types Packs/Day Years Used Date Smoking Tobacco: Never Smokeless Tobacco: Never Alcohol Use Standard Drinks/Week Comments Yes 0 (1 standard drink = 0.6 oz pure alcoho l) Sex Assigned at Date Recorded Not on file documented as of this encounter Last Filed Vital Signs Vital Sign Reading Time Taken Comments Blood Pressure 118/73 05/04/2018 3:45 PM HIDE COOKING OPERATOR Pulse 85 05/04/2018 3:45 PM HIDE COOKING OPERATOR Temperature - - Respiratory Rate - - Oxygen Saturation - - Inhaled Oxygen Concentration - - Weight 80.1 kg (176 lb 9.6 oz) 05/04/2018 3:45 PM HIDE COOKING OPERATOR Height 185.4 cm (6' 1) 05/04/2018 3:45 PM HIDE COOKING OPERATOR Body Mass Index 23.3 05/04/2018 3:45 PM HIDE COOKING OPERATOR documented in this encounter Patient Instructions Patient InstructionsRichard Phan MD - 05/04/2018 3:45 PM CST A good site to look for clinical trials in Parkinson's is clinicaltrials.gov COOKING OPERATOR documented in this encounter Progress Notes Richard Phan MD - 05/04/2018 12:00 AM CST DEIDRE PANG CSN: [id number] CLINIC NOTE NEUROLOGY PROGRESS NOTE DATE OF SERVICE: 05/04/2018 : 1955 CHIEF COMPLAINT: Followup Parkinson's. HISTORY OF PRESENT ILLNESS: Mr. Pang was seen in the company of his in followup of his Parkinson's. Last time I saw him was in July at [place] [facility]. He has done reasonably well since then. [...] without abnormal responses. There are no tremors. Ftwceu-fqel-fewkpy and xcue-wryh-tlrj are accurate. There is minimal if any [...] visit: 15 minutes. RICHARD PHAN MD SAP/MODL /[id number] COOKING OPERATOR documented in this encounter Plan of Treatment Not on filedocumented as of this encounter Visit Diagnoses Diagnosis Parkinson's disease (HRC) - Primary Dyskinesia due to Parkinson's disease ([facility]) Lack of coordination Vasovagal syncope Syncope and collapse documented in this encounter Care Teams Electrician Apprentice Powerhouse Relationship Specialty Start Date End Date Lurdes Thomas MD PCP - General 06/18/14 12/11/19 documented as of this encounter
--- OUTSIDE RECORDS SUMMARY | 2022-01-28 11:02 | XMS_ITS | Encounter Summary ---
:1955 Author Organization [facility] Address [address] [place] [address] Care Team Providers Name Role Phone Lurdes Thomas MD Primary Care Provider Reason for Visit Reason Comments Prior Authorization Request Encounter Details Date Type Department Care Team Description 08/03/2018 Telephone KnokMarai Esther Walker [facility] Neuroscience Center MD Prem Request Neurology 3931 [facility] [address] [facility] [place] [address] [place], [place] [phone] Social History Tobacco Use Types Packs/Day Years [...] on filedocumented in this encounter Care Teams Transplanter Orchid Relationship Specialty Start Date End Date Lurdes Thomas MD PCP - General 06/18/14 12/11/19 documented as of this encounter
--- OUTSIDE RECORDS SUMMARY | 2022-01-28 11:02 | XMS_ITS | Encounter Summary ---
:1955 Author Organization [facility] Address [address], [place] [address] Care Team Providers Name Role Phone Lurdes Thomas MD Primary Care Provider Reason for Visit Reason Comments QUESTIONS, GENERAL Encounter Details Date Type Department Care Team Description 05/04/2018 Telephone HealthPartMaria Esther Walker, GENERAL Neuroscience Center MD Prem Neurology 3931 [facility] [address] [place] [phone] (Wo rk) Social History Tobacco Use Types [...] advise . Jeannette Michael 05/04/2018, 10:51 AM R PROCESSING MACHINE HELPER documented in this encounter Plan of Treatment Not on filedocumented as of this encounter Visit Diagnoses Not on filedocumented in this encounter Care Teams Monorail Charger Operator Relationship Specialty Start Date End Date Lurdes Thomas MD PCP - General 06/18/14 12/11/19 documented as of this encounter
--- OUTSIDE RECORDS SUMMARY | 2022-01-28 11:02 | XMS_ITS | Encounter Summary ---
:1955 Author Organization [facility] Address [address], [place] [address] Care Team Providers Name Role Phone Lurdes Thomas MD Primary Care Provider Reason for Visit Reason Comments Spine Lumbar Encounter Details Date Type Department Care Team Description 06/30/2015 Office Visit [place] [facility] Chris Cain, Right -sided low back Therapy Aurora Briggs, PT pain with right-sided [address] granados (Primary Dx) [place] [address] [place], [place] [phone] (Wo rk) Social History Tobacco Use Types Packs/Day Years Used Date Smoking Tobacco: Never Smokeless Tobacco: Never Alcohol Use Standard Drinks/Week Comments Yes 0 (1 standard drink = 0.6 oz pure alcoho l) Sex Assigned at Date Recorded Not on file documented as of this encounter Progress Notes Aurora Hickey, PT - 06/30/2015 11:02 AM CST Encounter date: 06/30/2015 Pt : 1955 [facility] Physical Therapy Progress Note Visit Number: 11 Initial Certification Period: 05/19/2015 to 08/17/15 Referring Provider: Dr. Maria Esther Phan Visit Diagnosis/ICD: Diagnosis ICD-10-CM ICD-9-CM 1. Right-sided low back pain with right-sided sciatica M54.41 724.3 Precautions: none Onset/Referral Date: 05/19/2015 Orders: Evaluate and treat. [facility] Services: Programming RN, Social Work, [...] above OBJ info and- therapeutic ex (CPT 06500)20 min reviewed flexion in step standing, left, [...] PA pressure on spinal segments ultrasound (CPT 79518) 12 min US to right LB for 10 min, 1.3 w/cm2, continuous manual therapy (CPT 79748) 15 min joint mobilization to lumbar spine gr 3 soft tissue mobilization, and use of intelligence operations tool to T and lumbar paraspinals Afterwards [...] has not contacted his insurance company yet NSIVE CARE NURSE documented in this encounter Plan of Treatment Not on filedocumented as of this encounter Visit Diagnoses Diagnosis Right-sided low back pain with right-beck ed sciatica (HRC) - Primary documented in this encounter Care Teams Assistant Plant Controller Relationship Specialty Start Date End Date Lurdes Thomas MD PCP - General 06/18/14 12/11/19 documented as of this encounter
--- OUTSIDE RECORDS SUMMARY | 2022-01-28 11:02 | XMS_ITS | Encounter Summary ---
:1955 Author Organization [facility] Address [address], [place] [address] Care Team Providers Name Role Phone Lurdes Thomas MD Primary Care Provider Reason for Visit Reason Comments Spine Lumbar Encounter Details Date Type Department Care Team Description 07/16/2015 Office Visit [place] [facility] Chris Cain, Right -sided low back Therapy Aurora Briggs, PT pain with right-sided [address] granados (Primary Dx) [place] [address] [place], [place] [phone] (Wo rk) Social History Tobacco Use Types Packs/Day Years Used Date Smoking Tobacco: Never Smokeless Tobacco: Never Alcohol Use Standard Drinks/Week Comments Yes 0 (1 standard drink = 0.6 oz pure alcoho l) Sex Assigned at Date Recorded Not on file documented as of this encounter Progress Notes Aurora Hickey, PT - 07/19/2015 1:13 PM CST Encounter date: 07/16/2015 Pt : [address] [facility] Physical Therapy Progress Note/Discharge Summary Visit Number: 14 Initial Certification Period: 05/19/2015 to 08/17/15 Referring Provider: Dr. Maria Esther Phan Visit Diagnosis/ICD: Diagnosis ICD-10-CM ICD-9-CM 1. Right-sided low back pain with right-sided sciatica M54.41 724.3 Precautions: none Onset/Referral Date: 05/19/2015 Orders: Evaluate and treat. [facility] Services: Programming RN, Social Work, [...] above OBJ info and- therapeutic ex (CPT 82201)15 min reviewed /discussed HEP, home management, body mechanics with lifting, turning, pivoting ultrasound (CPT 65895) 12 min US to right LB for 10 min, 1.3 w/cm2, continuous manual therapy (CPT 86356) 18 min joint mobilization to lumbar spine [...] 75- 85% improvement Plan: will DC to [facility] at this time, encouraged Andrew to call if any questions, or return if needed Encounter Date: 07/16/2015 Pt : [address] [facility] Physical Therapy Discharge Summary Patient was [...] to return to therapy if symptoms recur. MANAGER documented in this encounter Plan of Treatment Not on filedocumented as of this encounter Visit Diagnoses Diagnosis Right-sided low back pain with right-beck ed sciatica (HRC) - Primary documented in this encounter Care Teams Director Mba Relationship Specialty Start Date End Date Lurdes Thomas MD PCP - General 06/18/14 12/11/19 documented as of this encounter
--- OUTSIDE RECORDS SUMMARY | 2022-01-28 11:02 | XMS_ITS | Encounter Summary ---
:1955 Author Organization [facility] Address [address] [address] Care Team Providers Name Role Phone Lurdes Thomas MD Primary Care Provider Reason for Visit Reason Comments Spine Lumbar Encounter Details Date Type Department Care Team Description 07/09/2015 Office Visit [place] [facility] Chris Cain, Right -sided low back Therapy Aurora Briggs, PT pain with right-sided [address] granados (Primary Dx) [place] [address] [place], [place] [phone] (Wo rk) Social History Tobacco Use Types Packs/Day Years Used Date Smoking Tobacco: Never Smokeless Tobacco: Never Alcohol Use Standard Drinks/Week Comments Yes 0 (1 standard drink = 0.6 oz pure alcoho l) Sex Assigned at Date Recorded Not on file documented as of this encounter Progress Notes Aurora Hickey, PT - 07/09/2015 8:51 AM CST Encounter date: 07/09/2015 Pt : 1955 Jasmine [facility] Physical Therapy Progress Note Visit Number: 13 Initial Certification Period: 05/19/2015 to 08/17/15 Referring Provider: Dr. Maria Esther Phan Visit Diagnosis/ICD: Diagnosis ICD-10-CM ICD-9-CM 1. Right-sided low back pain with right-sided sciatica M54.41 724.3 Precautions: none Onset/Referral Date: 05/19/2015 Orders: Evaluate and treat. [facility] Services: Programming RN, Social Work, [...] above OBJ info and- therapeutic ex (CPT 18300)15 min reviewed /discussed HEP, home management, body mechanics with lifting, turning, pivoting ultrasound (CPT 41982) 12 min US to right LB for 10 min, 1.3 w/cm2, continuous manual therapy (CPT 11620) 18 min joint mobilization to lumbar spine [...] then he sees his MD for recheck LANCE GRAPHIC DESIGNER documented in this encounter Plan of Treatment Not on filedocumented as of this encounter Visit Diagnoses Diagnosis Right-sided low back pain with right-beck ed sciatica (HRC) - Primary documented in this encounter Care Teams Media Producer Relationship Specialty Start Date End Date Lurdes Thomas MD PCP - General 06/18/14 12/11/19 documented as of this encounter
--- OUTSIDE RECORDS SUMMARY | 2022-01-28 11:02 | XMS_ITS | Encounter Summary ---
:1955 Author Organization [facility] Address [address] [place] [address] Care Team Providers Name Role Phone Lurdes Thomas MD Primary Care Provider Reason for Visit Reason Comments Refill Encounter Details Date Type Department Care Team Description 06/03/2019 Refill [facility] Neuroscience Maria Esther Reis MD Refill Center Neurology 3931 [facility] [address] [place] [address] [place] [address] [phone] Social History Tobacco Use Types Packs/Day Years Used Date Smoking Tobacco: Never Smokeless Tobacco: Never Alcohol Use Standard Drinks/Week Comments Yes 0 (1 standard drink = 0.6 oz pure alcoho l) Sex Assigned at Date Recorded Not on file documented as of this encounter Nursing Notes Rachel Brown RN - 06/03/2019 1:11 PM CST Incorrect provider. Rachel Brown RN E CHANNELER documented in this encounter Plan of Treatment Not on filedocumented as of this encounter Visit Diagnoses Not on filedocumented in this encounter Care Teams Immigration Attorney Relationship Specialty Start Date End Date Lurdes Thomas MD PCP - General 06/18/14 12/11/19 documented as of this encounter
--- OUTSIDE RECORDS SUMMARY | 2022-01-28 11:02 | XMS_ITS | Encounter Summary ---
:1955 Author Organization [facility] Address [address] [place] [address] Care Team Providers Name Role Phone Lurdes Thomas MD Primary Care Provider Encounter Details Date Type Department Care Team Description 05/09/2018 Telephone [employer] Neuroscience Princess Phan, [place] [facility] [address] [place] [address] [place], [place] [phone] (Wo rk) Social History Tobacco Use Types [...] script stating-- need to clarify medication Rytary 41.40-851 caps. Please advise. Nadia Persaud 05/09/2018, 9:20 AM YSIS REGISTERED NURSE documented in this encounter Plan of Treatment Not on filedocumented as of this encounter Visit Diagnoses Not on filedocumented in this encounter Care Teams Stone Driller Relationship Specialty Start Date End Date Lurdes Thomas MD PCP - General 06/18/14 12/11/19 documented as of this encounter
--- OUTSIDE RECORDS SUMMARY | 2022-01-28 11:02 | XMS_ITS | Encounter Summary ---
:1955 Author Organization [facility] Address [address] [place] [address] Care Team Providers Name Role Phone Lurdes Thomas MD Primary Care Provider Reason for Visit Reason Onset Date Comments Refill 06/03/2019 Encounter Details Date Type Department Care Team Description 06/03/2019 Refill [facility] Neuroscience Para Maria Esther newberry MD Refill Center Neurology [address] [address] [place] [address] [phone] Social History Tobacco Use Types Packs/Day Years [...] Qty: 90 tabs Last Refill: not given Academic Advisement Director/Appt Center: Was the pharmacy entered into the Preferred Pharmacy field? Yes Abi Laughlin 06/03/2019, 1:58 PM THESIOLOGIST PHYSICIAN documented in this encounter Plan of Treatment Not on filedocumented as of this encounter Visit Diagnoses Not on filedocumented in this encounter Care Teams Auto Body Mechanic Relationship Specialty Start Date End Date Lurdes Thomas MD PCP - General 06/18/14 12/11/19 documented as of this encounter
--- OUTSIDE RECORDS SUMMARY | 2022-01-28 11:02 | XMS_ITS | Encounter Summary ---
:1955 Author Organization [facility] Address [address] [address] Care Team Providers Name Role Phone Lurdes Thomas MD Primary Care Provider Reason for Visit Reason Comments Spine Lumbar Encounter Details Date Type Department Care Team Description 07/02/2015 Office Visit [place] [facility] Chris Cain, Right -sided low back Therapy Aurora Briggs, PT pain with right-sided [address] granados (Primary Dx) [place] [address] [place], [place] [phone] (Wo rk) Social History Tobacco Use Types Packs/Day Years Used Date Smoking Tobacco: Never Smokeless Tobacco: Never Alcohol Use Standard Drinks/Week Comments Yes 0 (1 standard drink = 0.6 oz pure alcoho l) Sex Assigned at Date Recorded Not on file documented as of this encounter Progress Notes Aurora Hickey, PT - 07/02/2015 11:56 AM CST Encounter date: 07/02/2015 Pt : 1955 [facility] Physical Therapy Progress Note Visit Number: 12 Initial Certification Period: 05/19/2015 to 08/17/15 Referring Provider: Dr. Maria Esther Phan Visit Diagnosis/ICD: Diagnosis ICD-10-CM ICD-9-CM 1. Right-sided low back pain with right-sided sciatica M54.41 724.3 Precautions: none Onset/Referral Date: 05/19/2015 Orders: Evaluate and treat. [facility] Services: Programming RN, Social Work, [...] above OBJ info and- therapeutic ex (CPT 72887)20 min reviewed and practiced H/K's position cat camel and hand knee rock,and opp arm/leg raise ultrasound (CPT 20613) 10 min US to right LB for 10 min, 1.3 w/cm2, continuous manual therapy (CPT 96892) 15 min joint mobilization to lumbar spine gr 3 soft tissue mobilization, and use of driving school instructor tool to T and lumbar paraspinals Afterwards [...] his neurologist for his brain stimulator recheck ITY COORDINATOR documented in this encounter Plan of Treatment Not on filedocumented as of this encounter Visit Diagnoses Diagnosis Right-sided low back pain with right-beck ed sciatica (HRC) - Primary documented in this encounter Care Teams Press Clippings Cutter And Paster Relationship Specialty Start Date End Date Lurdes Thomas MD PCP - General 06/18/14 12/11/19 documented as of this encounter
--- OUTSIDE RECORDS SUMMARY | 2022-01-28 11:02 | XMS_ITS | Encounter Summary ---
:1955 Author Organization [facility] Address [address] [place] [address] Care Team Providers Name Role Phone Lurdes Thomas MD Primary Care Provider Reason for Visit Reason Comments QUESTIONS, GENERAL MRI with DBS Encounter Details Date Type Department Care Team Description 10/18/2018 Telephone [place] [facility] Shawnee Hilario, RN QUESTIONS, GENERAL (MRI [address] arriaga with DBS) [place], [place] [address] [facility] [phone] Social History Tobacco Use Types Packs/Day Years Used Date Smoking Tobacco: Never Smokeless Tobacco: Never Alcohol Use Standard Drinks/Week Comments Yes 0 (1 standard drink = 0.6 oz pure alcoho l) Sex Assigned at Date Recorded Not on file documented as of this encounter Nursing Notes Shawnee Hilario, RN - 10/18/2018 4:25 PM CDT There was no return phone call to [place] today about getting system checked. Will send [...] he see's Dr. Phan over at the [facility] in [place]. I offered 3 options to them. They could come here and have the check. They could ask their doctor to order MRI over at [facility] and someone there can check it or they could contact [employer] and see if anyone could go out to [place] to check. She will call us back and let us know what they decide. documented in this encounter Plan of Treatment Not on filedocumented as of this encounter Visit Diagnoses Not on filedocumented in this encounter Care Teams Sales Secretary Relationship Specialty Start Date End Date Lurdes Thomas MD PCP - General 06/18/14 12/11/19 documented as of this encounter
--- OUTSIDE RECORDS SUMMARY | 2022-01-28 11:02 | XMS_ITS | Encounter Summary ---
:1955 Author Organization [facility] Address [address] [address] Care Team Providers Name Role Phone Lurdes Thomas MD Primary Care Provider Reason for Visit Reason Comments Prior Authorization For Medication Gocovri Encounter Details Date Type Department Care Team Description 08/15/2017 Telephone [place] [facility] Doris Arauz, Prior Authorization For [address] veterinary manager (Gocovri) [place], [place] [address] Social History Tobacco Use Types Packs/Day Years [...] phone. Pt's Insurer: Eleazar Insurer's contact #: [phone] Name of Drug: Goocovri 137mg Dx for Drug: dyskinesia due to PD medications Tried/failed drugs: Amantadine Medication was approved. Approval dates: 07/16/17 to 08/15/18 Case#: [id number] FYI documented in this encounter Plan of Treatment Not on filedocumented as of this encounter Visit Diagnoses Not on filedocumented in this encounter Care Teams Cloth Carrier Relationship Specialty Start Date End Date Lurdes Thomas MD PCP - General 06/18/14 12/11/19 documented as of this encounter
--- OUTSIDE RECORDS SUMMARY | 2022-01-28 11:02 | XMS_ITS | Encounter Summary ---
:1955 Author Organization [facility] Address [address] [place] [address] Care Team Providers Name Role Phone Lurdes Thomas MD Primary Care Provider Reason for Visit Reason Comments Medication Questions Encounter Details Date Type Department Care Team Description 06/07/2018 Telephone HealthPartMaria Esther Walker Medicat ion Questions Neuroscience Center MD Prem Neurology 3931 [facility] [address] [place] [address] [place], [place] [phone] (Wo rk) Social History Tobacco Use Types [...] of Dr. Phan' recommendations. Jeannette Porras RN KLE STRAP SEWER Maria Esther Phan MD - 06/08/2018 11:45 AM CST No problem with lansoprazole. KLE STRAP SEWER Yenny Ray - 06/07/2018 4:40 PM CST Pt natasha calling stating that pt was given a new medication by his PCP for acid reflex but they would like to know if Dr. Phan is ok with pt taking this medication. Pt was started on lansoprazole to treat the acid reflex. Please Advise KLE STRAP SEWER documented in this encounter Plan of Treatment Not on filedocumented as of this encounter Visit Diagnoses Not on filedocumented in this encounter Care Teams Floor Helper Relationship Specialty Start Date End Date Ludres Thomas MD PCP - General 06/18/14 12/11/19 documented as of this encounter
--- OUTSIDE RECORDS SUMMARY | 2022-01-28 11:02 | XMS_ITS | Encounter Summary ---
:1955 Author Organization [facility] Address [address], [place] [address] Care Team Providers Name Role Phone Lurdes Thomas MD Primary Care Provider Reason for Visit Reason Comments Dysphagia Encounter Details Date Type Department Care Team Description 06/24/2019 Office Visit [facility], Neuro[facility] oropharyngeal phase Speech Therapy [address] (Primary Dx) [address] [place], [place] [id number] [place] [address] [phone] Social History Tobacco Use Types Packs/Day Years [...] goals established as no further intervention from PLATING TANK OPERATOR service is warranted at this time. VISIT INFORMATION [place] Insurance Info: Today's Visit Number: 1 [...] Today: Exam completed Results reviewed. Pt and PLATING TANK OPERATOR watched MBSS video together with PLATING TANK OPERATOR pointing out anatomical landmarks and explaining how [...] Total Treatment Time: 35 minutes Nabila Morrell CCC-PLATING TANK OPERATOR 06/24/2019 RMATION TECHNOLOGY SECURITY MANAGER documented in this encounter Plan of Treatment Not on filedocumented as of this encounter Visit Diagnoses Diagnosis Dysphagia, oropharyngeal phase - Primary documented in this encounter Care Teams Aws Architect Relationship Specialty Start Date End Date Lurdes Thomas MD PCP - General 06/18/14 12/11/19 documented as of this encounter
--- OUTSIDE RECORDS SUMMARY | 2022-01-28 11:02 | XMS_ITS | Encounter Summary ---
:1955 Author Organization [facility] Address [address] [place] [address] Care Team Providers Name Role Phone Lurdes Thomas MD Primary Care Provider Reason for Visit Reason Comments Prior Authorization Request Encounter Details Date Type Department Care Team Description 09/11/2018 Telephone [employer] Maria Esther Phan [facility] Neuroscience Center MD Prem Request Neurology [address] [facility] [address] [facility] [place] [place] [address] [place], [place] [phone] Social History Tobacco Use Types Packs/Day Years [...] PA was approved from 08/14/18 to 09/13/19. PA#[id number] Called [employer] and told them PA was approved. They will expedite shipping and get to pt by Monday. Copy of PA approval sent to [facility]. Abi Laughlin - 09/13/2018 4:41 PM CDT Patient's spouse called regarding below message She can be contacted at [phone] - spouse's number or her own number [phone] Abi Laughlin 09/13/2018, 4:42 PM Maria Esther Phan MD - 09/13/2018 3:46 PM CDT Jeannette, I went to the website, will not allow me to start an account as I apparently already have on, I asked for a password reset, and received no e-mail to reset. I [facility] this [facility] be) and they told [...] 137 mg ER capsules 1. Go to [employer] and click Enter a Ann 2. Enter the pt's Last name, and the Ann Ann: [id number] Pt's Last name: Poly : 1955 3. Complete th form and click: Send to Plan for approval documented in this encounter Plan of Treatment Not on filedocumented as of this encounter Visit Diagnoses Not on filedocumented in this encounter Care Teams Sheet Rock Finisher Relationship Specialty Start Date End Date Lurdes Thomas MD PCP - General 06/18/14 12/11/19 documented as of this encounter
--- OUTSIDE RECORDS SUMMARY | 2022-01-28 11:02 | XMS_ITS | Encounter Summary ---
:1955 Author Organization [facility] Address [address] [place] [address] Care Team Providers Name Role Phone Lurdes Thomas MD Primary Care Provider Reason for Visit Reason Comments QUESTIONS, GENERAL Encounter Details Date Type Department Care Team Description 07/06/2017 Telephone [place] [facility] Shawnee Hilario, RN QUESTIONS, GENERAL [address] [place] [address] Social History Tobacco [...] seen next and get his battery checked. K UNLOADER documented in this encounter Plan of Treatment Not on filedocumented as of this encounter Visit Diagnoses Not on filedocumented in this encounter Care Teams Stone And Plate Preparer Apprentice Relationship Specialty Start Date End Date Lurdes Thomas MD PCP - General 06/18/14 12/11/19 documented as of this encounter
--- OUTSIDE RECORDS SUMMARY | 2022-01-28 11:02 | XMS_ITS | Encounter Summary ---
:1955 Author Organization [facility] Address [address] [address] Care Team Providers Name Role Phone Lurdes Thomas MD Primary Care Provider Reason for Visit Reason Comments Other Encounter Details Date Type Department Care Team Description 12/07/2017 Telephone [facility] Doris Arauz, RN Other [address] corina Lamas [place], [place] [address] Social History Tobacco Use Types Packs/Day Years Used Date Smoking Tobacco: Never Smokeless Tobacco: Never Alcohol Use Standard Drinks/Week Comments Yes 0 (1 standard drink = 0.6 oz pure alcoho l) Sex Assigned at Date Recorded Not on file documented as of this encounter Nursing Notes Doris Arauz, RN - 12/07/2017 2:28 PM CDT Received call from [employer]. They have been trying to call Andrew to schedule shipment of [employer] and unable to reach him. Called and LM for Andrew asking him to call [employer] at [phone]. [employer] will mail a letter also, asking him to call them. documented in this encounter Plan of Treatment Not on filedocumented as of this encounter Visit Diagnoses Not on filedocumented in this encounter Care Teams Distributor Cleaner Relationship Specialty Start Date End Date Lurdes Thomas MD PCP - General 06/18/14 12/11/19 documented as of this encounter
--- OUTSIDE RECORDS SUMMARY | 2022-01-28 11:02 | XMS_ITS | Encounter Summary ---
:1955 Author Organization [employer] Address [address] [address] Care Team Providers Name Role Phone Lurdes Thomas MD Primary Care Provider Reason for Visit Reason Comments QUESTIONS, GENERAL MRI and DBS Encounter Details Date Type Department Care Team Description 10/22/2018 Telephone [facility] Shawnee Hilario, RN QUESTIONS, GENERAL (MRI [address] arriaga and DBS) [place], [place] [address] [facility] [phone] Social History Tobacco Use Types Packs/Day Years [...] back. They have an appointment On at [facility] and he is receiving his care over [...] on filedocumented in this encounter Care Teams Digital Sales Manager Relationship Specialty Start Date End Date Lurdes Thomas MD PCP - General 06/18/14 12/11/19 documented as of this encounter
--- OUTSIDE RECORDS SUMMARY | 2022-01-28 11:02 | XMS_ITS | Encounter Summary ---
:1955 Author Organization [facility] Address [address], [place] [address] Care Team Providers Name Role Phone Lurdes Thomas MD Primary Care Provider Reason for Visit Reason Comments Refill Encounter Details Date Type Department Care Team Description 07/31/2018 Telephone [facility] Shawnee Hilario, RN Refill [address] [place], [place] [address] Social History Tobacco Use [...] Hilario RN - 07/31/2018 10:11 AM CDT [facility] calling for refill on [employer]. To be faxed to [phone]. He is seen at [facility] not [facility]. Please take care of. documented in this encounter Plan of Treatment Not on filedocumented as of this encounter Visit Diagnoses Not on filedocumented in this encounter Care Teams Clinical Systems Analyst Relationship Specialty Start Date End Date Serum, Lurdes C, MD PCP - General 06/18/14 12/11/19 documented as of this encounter
--- OUTSIDE RECORDS SUMMARY | 2022-01-28 11:03 | XMS_ITS | Encounter Summary ---
:1955 Author Organization [facility] Address [address] [address] Care Team Providers Name Role Phone Lurdes Thomas MD Primary Care Provider Reason for Referral Specialty Diagnoses / Procedures Referred By Contact Refer red To Contact Maria Esther Phan MD [address] [place], [place] [address] Referral ID Status Reason Start Date Expiration Date Visits Requ ested Visits Authorized LY MEDIATOR Reason for Visit Reason Comments Back Pain Encounter Details Date Type Department Care Team Description 05/19/2015 Initial Consult [facility] Jordana Ham ht-sided low back Therapy M, PT pain with right-sided [address] [id number] Social History Tobacco Use Types Packs/Day Years [...] 1955 Physical Therapy Parkinson Evaluation/Plan of Care [facility] Initial Certification Period: 05/19/2015 to 08/17/15 Referring Provider: Dr. Maria Esther Phan Visit Diagnosis/ICD: Diagnosis ICD-10-CM ICD-9-CM 1. Right-sided low back pain with right-sided sciatica M54.41 724.3 Precautions: none Onset/Referral Date: 05/19/2015 Reason for Referral: -Outpatient PT. Orders: Evaluate and treat. [facility] [place] Services: Programming RN, Social Work, therapy in [...] to residence: Stairs to enter. -Living location: [facility]. 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 Cooperative. Pleasant. Motor [...] discussed therapist's recommendation to follow up at [facility] with orthopedic PT, provided pt with information regarding how to schedule follow up visit at their clinic, contacted [facility] to update them with transfer of pt; [...] clinic closer to home for treatment with child care specialist. Pt to continue at [place] location. Pt would benefit from skilled PT [...] Therapeutic exercise. Ultrasound. Interdisciplinary Referrals: PT at [facility], continue with POC Services Recommended: [...] 90 day(s). Total Treatment: 45 minutes The rework operator is completed by the therapist and the referring clinician's electronic signature certifies medical necessity for the plan above. Completed by Jordana Ham PT License #: [id number] LY MEDIATOR documented in this encounter Plan of Treatment Scheduled Referrals Name Type Priority Associated Diagnoses [facility] Referral Routine Right-sided low back edmond n Ordered: 05/19/2015, with right-sided sciatica Ex keagan: 05/19/2015 documented as of this encounter Visit Diagnoses Diagnosis Right-sided low back pain with right-beck ed sciatica (HRC) documented in this encounter Care Teams Cost Accounting Clerk Relationship Specialty Start Date End Date Lurdes Thomas MD PCP - General 06/18/14 12/11/19 documented as of this encounter
--- OUTSIDE RECORDS SUMMARY | 2022-01-28 11:03 | XMS_ITS | Encounter Summary ---
:1955 Author Organization [facility] Address [address] [address] Care Team Providers Name Role Phone Lurdes Thomas MD Primary Care Provider Reason for Visit Reason Comments Spine Lumbar Encounter Details Date Type Department Care Team Description 06/04/2015 Office Visit [facility] Chris Cain, Right -sided low back Therapy Aurora Briggs, PT pain with right-sided [address] granados (Primary Dx) [place] [address] [place], [place] [phone] (Wo rk) Social History Tobacco Use Types Packs/Day Years Used Date Smoking Tobacco: Never Smokeless Tobacco: Never Alcohol Use Standard Drinks/Week Comments Yes 0 (1 standard drink = 0.6 oz pure alcoho l) Sex Assigned at Date Recorded Not on file documented as of this encounter Progress Notes Aurora Hickey, PT - 06/23/2015 2:07 PM CST Encounter date: 06/04/2015 Pt : 1955 [facility] Physical Therapy Progress Note Visit Number: 5 Initial Certification Period: 05/19/2015 to 08/17/15 Referring Provider: Dr. Maria Esther Phan Visit Diagnosis/ICD: Diagnosis ICD-10-CM ICD-9-CM 1. Right-sided low back pain with right-sided sciatica M54.41 724.3 Precautions: none Onset/Referral Date: 05/19/2015 Orders: Evaluate and treat. [facility] Services: Programming RN, Social Work, [...] above OBJ info and- manual therapy (CPT 76330) 10 min joint mobilization, supine end range thrust technique, right and left, repeated twice therapeutic ex (CPT 62852)25 min added hip series of stretches to combine some of the exercises he has been doing ultrasound (CPT 32183) 10 min US to right LB for [...] manual therapy, exercise progression, modalities if needed. OLE SKIVER documented in this encounter Plan of Treatment Not on filedocumented as of this encounter Visit Diagnoses Diagnosis Right-sided low back pain with right-beck ed sciatica (HRC) - Primary documented in this encounter Care Teams Scheduling Clerk Relationship Specialty Start Date End Date Lurdes Thomas MD PCP - General 06/18/14 12/11/19 documented as of this encounter
--- OUTSIDE RECORDS SUMMARY | 2022-01-28 11:03 | XMS_ITS | Encounter Summary ---
:1955 Author Organization [facility] Address [address], [place] [address] Care Team Providers Name Role Phone Lurdes Thomas MD Primary Care Provider Reason for Visit Reason Comments Spine Lumbar Encounter Details Date Type Department Care Team Description 06/16/2015 Office Visit [facility] Chris Cain, Right -sided low back Therapy Aurora Briggs, PT pain with right-sided [address] granados (Primary Dx) [place] [address] [place], [place] [phone] (Wo rk) Social History Tobacco Use Types Packs/Day Years Used Date Smoking Tobacco: Never Smokeless Tobacco: Never Alcohol Use Standard Drinks/Week Comments Yes 0 (1 standard drink = 0.6 oz pure alcoho l) Sex Assigned at Date Recorded Not on file documented as of this encounter Progress Notes Aurora Hickey, PT - 06/23/2015 2:03 PM CST Encounter date: 06/16/2015 Pt : 1955 [facility] Physical Therapy Progress Note Visit Number: 8 Initial Certification Period: 05/19/2015 to 08/17/15 Referring Provider: Dr. Maria Esther Phan Visit Diagnosis/ICD: Diagnosis ICD-10-CM ICD-9-CM 1. Right-sided low back pain with right-sided sciatica M54.41 724.3 Precautions: none Onset/Referral Date: 05/19/2015 Orders: Evaluate and treat. [facility] Services: Programming RN, Social Work, [...] above OBJ info and- therapeutic ex (CPT 55679)20 min Discussed hip series of stretches to [...] stretch with this, no pain. ultrasound (CPT 87937) 11 min US to right LB for 10 min, 1.3 w/cm2, continuous manual therapy (CPT 00555) 12 min soft tissue mobilization, and use of application development consultant tool to T and lumbar parsspinals Timed [...] therapy beyondinitial 6 that are set up ETIC OBSERVER documented in this encounter Plan of Treatment Not on filedocumented as of this encounter Visit Diagnoses Diagnosis Right-sided low back pain with right-beck ed sciatica (HRC) - Primary documented in this encounter Care Teams Program Schedule Clerk Relationship Specialty Start Date End Date Lurdes Thmoas MD PCP - General 06/18/14 12/11/19 documented as of this encounter
--- OUTSIDE RECORDS SUMMARY | 2022-01-28 11:03 | XMS_ITS | Encounter Summary ---
:1955 Author Organization [employer] Address [address], [place] [address] Care Team Providers Name Role Phone Lurdes Thomas MD Primary Care Provider Reason for Visit Reason Comments Other Encounter Details Date Type Department Care Team Description 12/09/2014 Telephone [facility] Doris Arauz, RN Other [address] [place], [place] [address] Social History Tobacco Use [...] agitans documented in this encounter Care Teams Lens Cutter Relationship Specialty Start Date End Date Lurdes Thomas MD PCP - General 06/18/14 12/11/19 documented as of this encounter
--- OUTSIDE RECORDS SUMMARY | 2022-01-28 11:03 | XMS_ITS | Encounter Summary ---
:1955 Author Organization [facility] Address [address] [address] Care Team Providers Name Role Phone Lurdes Thomas MD Primary Care Provider Reason for Visit Reason Comments Spine Lumbar Encounter Details Date Type Department Care Team Description 06/08/2015 Office Visit [facility] Chris Cain, Right -sided low back Therapy Aurora Briggs, PT pain with right-sided [address] granados (Primary Dx) [place] [address] [place], [place] [phone] (Wo rk) Social History Tobacco Use Types Packs/Day Years Used Date Smoking Tobacco: Never Smokeless Tobacco: Never Alcohol Use Standard Drinks/Week Comments Yes 0 (1 standard drink = 0.6 oz pure alcoho l) Sex Assigned at Date Recorded Not on file documented as of this encounter Progress Notes Aurora Hickey, PT - 06/23/2015 2:05 PM CST Encounter date: 06/08/2015 Pt : 1955 [facility] Progress Note Visit Number: 6) Initial Certification Period: 05/19/2015 to 08/17/15 Referring Provider: Dr. Maria Esther Phan Visit Diagnosis/ICD: Diagnosis ICD-10-CM ICD-9-CM 1. Right-sided low back pain with right-sided sciatica M54.41 724.3 Precautions: none Onset/Referral Date: 05/19/2015 Orders: Evaluate and treat. [facility] Services: Programming RN, Social Work, [...] above OBJ info and- manual therapy (CPT 77300) 10 min joint mobilization, supine end range thrust technique, right and left, repeated twice therapeutic ex (CPT 66087)25 min hip series of stretches to combine some of the exercises he has been doing added flexion in step standing, left, than right side glide left added single leg raise in hands/knees position, 5 sec hold ultrasound (CPT 90883) 12 min US to right LB for [...] manual therapy, exercise progression, modalities if needed. RVISOR CLAIMS documented in this encounter Plan of Treatment Not on filedocumented as of this encounter Visit Diagnoses Diagnosis Right-sided low back pain with right-beck ed sciatica (HRC) - Primary documented in this encounter Care Teams Open Hearth Door Liner Relationship Specialty Start Date End Date Lurdes Thomas MD PCP - General 06/18/14 12/11/19 documented as of this encounter
--- OUTSIDE RECORDS SUMMARY | 2022-01-28 11:03 | XMS_ITS | Encounter Summary ---
:1955 Author Organization [employer] Address [address] [place] [address] Care Team Providers Name Role Phone Lurdes Thoams MD Primary Care Provider Reason for Visit Reason Comments Follow-up Back Pain Encounter Details Date Type Department Care Team Description 05/19/2015 Office Visit [facility] Maria Esther Phan PD (Parkinson's disease) (Pr imary Dx); [address] Amaro MD Right-sided low back pain with right-beck ed sciatica Drive [address] [place], [place] [address] [place], [place] [phone] (Wo rk) Social History Tobacco Use Types Packs/Day Years Used Date Smoking Tobacco: Never Smokeless Tobacco: Never Alcohol Use Standard Drinks/Week Comments Yes 0 (1 standard drink = 0.6 oz pure alcoho l) Sex Assigned at Date Recorded Not on file documented as of this encounter Last Filed Vital Signs Vital Sign Reading Time Taken Comments Blood Pressure 122/78 05/19/2015 8:29 AM BANK MESSENGER Pulse 76 05/19/2015 8:29 AM BANK MESSENGER Temperature - - Respiratory Rate - - Oxygen Saturation - - Inhaled Oxygen Concentration - - Weight 90.6 kg (199 lb 12.8 oz) 05/19/2015 8:24 AM BANK MESSENGER Height - - Body Mass Index 26.37 07/08/2014 8:56 AM BANK MESSENGER documented in this encounter Progress Notes Maria Esther Phan MD - 05/19/2015 8:52 AM CST Dictated MESSENGER documented in this encounter Plan of Treatment Not on filedocumented as of this encounter Visit Diagnoses Diagnosis PD (Parkinson's disease) (HRC) - Primary Paralysis agitans Right-sided low back pain with right-beck ed sciatica (HRC) documented in this encounter Care Teams Early Head Start Director Relationship Specialty Start Date End Date Lurdes Thomas MD PCP - General 06/18/14 12/11/19 documented as of this encounter
--- OUTSIDE RECORDS SUMMARY | 2022-01-28 11:03 | XMS_ITS | Encounter Summary ---
:1955 Author Organization [employer] Address [address], [place] [address] Care Team Providers Name Role Phone Lurdes Thomas MD Primary Care Provider Reason for Visit Reason Comments No Show Encounter Details Date Type Department Care Team Description 03/03/2015 Telephone [facility] Shawnee Hilario, RN No Show [address] [place], [place] [address] Social History Tobacco Use [...] and leave him a message. I called [phone] and it sounded like someone answered but no voice heard. Iwill try later. documented in this encounter Plan of Treatment Not on filedocumented as of this encounter Visit Diagnoses Not on filedocumented in this encounter Care Teams Wood Model Builder Relationship Specialty Start Date End Date Lurdes Thomas MD PCP - General 06/18/14 12/11/19 documented as of this encounter
--- OUTSIDE RECORDS SUMMARY | 2022-01-28 11:03 | XMS_ITS | Encounter Summary ---
:1955 Author Organization [facility] Address [address] [address] Care Team Providers Name Role Phone Lurdes Thomas MD Primary Care Provider Reason for Visit Reason Comments Spine Lumbar Encounter Details Date Type Department Care Team Description 06/02/2015 Office Visit [facility] Chris Cain, Right -sided low back Therapy Aurora Briggs, PT pain with right-sided [address] granados (Primary Dx) [place] [address] [place], [place] [phone] (Wo rk) Social History Tobacco Use Types Packs/Day Years Used Date Smoking Tobacco: Never Smokeless Tobacco: Never Alcohol Use Standard Drinks/Week Comments Yes 0 (1 standard drink = 0.6 oz pure alcoho l) Sex Assigned at Date Recorded Not on file documented as of this encounter Progress Notes Aurora Hickey, PT - 06/02/2015 10:07 AM CST Encounter date: 06/02/2015 Pt : 1955 [facility] Physical Therapy Progress Note Visit Number: 3 Initial Certification Period: 05/19/2015 to 08/17/15 Referring Provider: Dr. Maria Esther Phan Visit Diagnosis/ICD: Diagnosis ICD-10-CM ICD-9-CM 1. Right-sided low back pain with right-sided sciatica M54.41 724.3 Precautions: none Onset/Referral Date: 05/19/2015 Reason for Referral: -Outpatient PT. Orders: Evaluate and treat. [facility] Services: Programming RN, Social Work, [...] with REIL Treatment/Education Today: therapeutic ex (CPT 69633)5 min time spent with orthopedic assessment ultrasound (CPT 55712) 12 min US to right LB for 10 min, 1.3 w/cm2, continous therapeutic ex (CPT 07297) 30 min Reviewed and practiced his HEP: [...] therapy, exercise progression, modalities if needed. ING TRACTOR OPERATOR SWAMP documented in this encounter Plan of Treatment Not on filedocumented as of this encounter Visit Diagnoses Diagnosis Right-sided low back pain with right-beck ed sciatica (HRC) - Primary documented in this encounter Care Teams Paper And Pulp Mill Worker Relationship Specialty Start Date End Date Lurdes Thomas MD PCP - General 06/18/14 12/11/19 documented as of this encounter
--- OUTSIDE RECORDS SUMMARY | 2022-01-28 11:03 | XMS_ITS | Encounter Summary ---
:1955 Author Organization [facility] Address [address] [place] [address] Care Team Providers Name Role Phone Lurdes Thomas MD Primary Care Provider Reason for Visit Reason Comments Research Encounter Details Date Type Department Care Team Description 05/21/2015 Telephone [facility] Maria Esther Phan MD Research [address] [address] [place], [place] [address] [place] [address] (Wo rk) Social History Tobacco [...] [facility] Andrew would like to pursue the study and understands that enrollment may close before he hasbeen stable for 60 days on a different anti-depressant. Zoloft is an acceptable medication. Pharmacyhas been updated. Please write specific instructions on this switch. HANDLER documented in this encounter Plan of Treatment Not on filedocumented as of this encounter Visit Diagnoses Not on filedocumented in this encounter Care Teams Spa Director Relationship Specialty Start Date End Date Lurdes Thomas MD PCP - General 06/18/14 12/11/19 documented as of this encounter
--- OUTSIDE RECORDS SUMMARY | 2022-01-28 11:03 | XMS_ITS | Encounter Summary ---
:1955 Author Organization [employer] Address [address], [place] [address] Care Team Providers Name Role Phone Lurdes Thomas MD Primary Care Provider Reason for Visit Reason Comments Social Service Encounter Details Date Type Department Care Team Description 05/19/2015 Office Visit [facility] [place], Parkinson' s disease Services BURNER TENDER (Primary Dx) [address] [place] [address] Social History Tobacco Use Types [...] workplace environment. 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 He is trying to do parts of [...] information provided for future concerns or questions. IRON DRAIN PIPE LAYER documented in this encounter Plan of Treatment Not on filedocumented as of this encounter Visit Diagnoses Diagnosis Parkinson's disease (HRC) - Primary documented in this encounter Care Teams Protective Signal Superintendent Relationship Specialty Start Date End Date Lurdes Thomas MD PCP - General 06/18/14 12/11/19 documented as of this encounter
--- OUTSIDE RECORDS SUMMARY | 2022-01-28 11:03 | XMS_ITS | Encounter Summary ---
:1955 Author Organization [facility] Address [address], [place] [address] Care Team Providers Name Role Phone Lurdes Thomas MD Primary Care Provider Reason for Visit Reason Comments Spine Lumbar Encounter Details Date Type Department Care Team Description 06/23/2015 Office Visit [facility] Chris Cain, Right -sided low back Therapy Aurora Briggs, PT pain with right-sided [address] granados (Primary Dx) [place] [address] [place], [place] [phone] (Wo rk) Social History Tobacco Use Types [...] date: 06/23/2015 Pt : 1955 [facility] Physical Therapy Progress Note Visit Number: 10 Initial Certification Period: 05/19/2015 to 08/17/15 Referring Provider: Dr. Maria Esther Phan Visit Diagnosis/ICD: Diagnosis ICD-10-CM ICD-9-CM 1. Right-sided low back pain with right-sided sciatica M54.41 724.3 Precautions: none Onset/Referral Date: 05/19/2015 Orders: Evaluate and treat. [facility] Services: Programming RN, Social Work, [...] above OBJ info and- therapeutic ex (CPT 89738)10 min reviewed flexion in step standing, left, than right. He still gets a little glitch on right side - in 1/2 sitting, hip hiking right for QL. He reports feeling an excellent stretch with this, no pain. ultrasound (CPT 19097) 12 min US to right LB for 10 min, 1.3 w/cm2, continuous manual therapy (CPT 94779) 15 min soft tissue mobilization, and use of documentation improvement specialist tool to T and lumbar paraspinals Timed [...] has not contacted his insurance company yet AUTHOR documented in this encounter Plan of Treatment Not on filedocumented as of this encounter Visit Diagnoses Diagnosis Right-sided low back pain with right-beck ed sciatica (HRC) - Primary documented in this encounter Care Teams Column Precaster Relationship Specialty Start Date End Date Lurdes Thomas MD PCP - General 06/18/14 12/11/19 documented as of this encounter
--- OUTSIDE RECORDS SUMMARY | 2022-01-28 11:03 | XMS_ITS | Encounter Summary ---
:1955 Author Organization [facility] Address [address], [place] [address] Care Team Providers Name Role Phone Lurdes Thomas MD Primary Care Provider Reason for Visit Reason Comments Spine Lumbar Encounter Details Date Type Department Care Team Description 05/26/2015 Office Visit [place] [facility] Chris Cain, Right -sided low back Therapy Aurora Briggs, PT pain with right-sided [address] granados (Primary Dx) [place] [address] [place], [place] [phone] (Wo rk) Social History Tobacco Use Types [...] Referral: -Outpatient PT. Orders: Evaluate and treat. [facility] Services: Programming RN, Social Work, therapy in the past Exacerbation Date: 04/21/2015 Last Referring MD Visit: 05/19/2015 SUBJECTIVE: Andrew is new to me today, initially assessed at [facility], and referred to [facility] location for convenience, and orthopedic [...] with REIL Treatment/Education Today: therapeutic ex (CPT 48382)15 min time spent with orthopedic assessment manual therapy (CPT 29002) 15 min in prone, general mobilization. afterwards, (-) prone knee flexion test, but pain with transitional movements In supine, end range rotational thrust to the right, repeated twice, and to the left, with cavitation. Afterwards, no pain with supine to sit, and sit to stand. 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
--- OUTSIDE RECORDS SUMMARY | 2022-01-28 11:03 | XMS_ITS | Encounter Summary ---
:1955 Author Organization [employer] Address [address], [place] [address] Care Team Providers Name Role Phone Lurdes Thomas MD Primary Care Provider Encounter Details Date Type Department Care Team Description 02/02/2015 Notes/Orders [place] [facility] Katalina Laughlin, PT [email or web address] [place] [address] [place] [address] [place], [place] [phone] (Wo rk) Social History Tobacco Use [...] 90 day(s). Katalina Laughlin PT Physical Therapist [place] License # [id number] documented in this encounter Plan of Treatment Not on filedocumented as of this encounter Visit Diagnoses Not on filedocumented in this encounter Care Teams Evp Managing Director Relationship Specialty Start Date End Date Lurdes Thomas MD PCP - General 06/18/14 12/11/19 documented as of this encounter
--- OUTSIDE RECORDS SUMMARY | 2022-01-28 11:03 | XMS_ITS | Encounter Summary ---
:1955 Author Organization [email or web address] Address [address] [address] Care Team Providers Name Role Phone Lurdes Thomas MD Primary Care Provider Reason for Visit Reason Comments Spine Lumbar Encounter Details Date Type Department Care Team Description 06/10/2015 Office Visit [place] [facility] Chris Cain, Right -sided low back Therapy Aurora Briggs, PT pain with right-sided [address] granados (Primary Dx) [place] [address] [place], [place] [phone] (Wo rk) Social History Tobacco Use Types Packs/Day Years Used Date Smoking Tobacco: Never Smokeless Tobacco: Never Alcohol Use Standard Drinks/Week Comments Yes 0 (1 standard drink = 0.6 oz pure alcoho l) Sex Assigned at Date Recorded Not on file documented as of this encounter Progress Notes Aurora Hickey, PT - 06/23/2015 2:04 PM CST Encounter date: 06/10/2015 Pt : 1955 [facility] Physical Therapy Progress Note Visit Number: 7 Initial Certification Period: 05/19/2015 to 08/17/15 Referring Provider: Dr. Maria Esther Phan Visit Diagnosis/ICD: Diagnosis ICD-10-CM ICD-9-CM 1. Right-sided low back pain with right-sided sciatica M54.41 724.3 Precautions: none Onset/Referral Date: 05/19/2015 Orders: Evaluate and treat. [facility] Services: Programming RN, Social Work, [...] above OBJ info and- therapeutic ex (CPT 75413)12 min hip series of stretches to combine some of the exercises he has been doing reviewed flexion in step standing, left, than right. He still gets a little glitch on right side side glide left single leg raise in hands/knees position, 5 sec hold manual therapy (CPT 61533) 10 min In left sanchez position, MET to low T and lumbar spine ultrasound (CPT 59290) 11 min US to right LB for 10 min, 1.3 w/cm2, continuous manual therapy (CPT 89169) 12 min soft tissue mobilization use of crop scout tool to T and lumbar parsspinals Timed [...] manual therapy, exercise progression, modalities if needed. CTOR OF ARCHIVES documented in this encounter Plan of Treatment Not on filedocumented as of this encounter Visit Diagnoses Diagnosis Right-sided low back pain with right-beck ed sciatica (HRC) - Primary documented in this encounter Care Teams Trailhead Construction Worker Relationship Specialty Start Date End Date Lurdes Thomas MD PCP - General 06/18/14 12/11/19 documented as of this encounter
--- OUTSIDE RECORDS SUMMARY | 2022-01-28 11:03 | XMS_ITS | Encounter Summary ---
:1955 Author Organization [facility] Address [address] [address] Care Team Providers Name Role Phone Lurdes Thomas MD Primary Care Provider Reason for Visit Reason Comments Spine Lumbar Encounter Details Date Type Department Care Team Description 05/28/2015 Office Visit [place] [facility] Chris Cain, Right -sided low back Therapy Aurora Briggs, PT pain with right-sided [address] granados (Primary Dx) [place] [address] [place], [place] [phone] (Wo rk) Social History Tobacco Use Types Packs/Day Years Used Date Smoking Tobacco: Never Smokeless Tobacco: Never Alcohol Use Standard Drinks/Week Comments Yes 0 (1 standard drink = 0.6 oz pure alcoho l) Sex Assigned at Date Recorded Not on file documented as of this encounter Progress Notes Aurora Hickey, PT - 05/28/2015 12:14 PM CST Encounter date: 05/28/2015 Pt : 1955 [facility] Physical Therapy Progress Note Visit Number: 2 Initial Certification Period: 05/19/2015 to 08/17/15 Referring Provider: Dr. Maria Esther Phan Visit Diagnosis/ICD: Diagnosis ICD-10-CM ICD-9-CM 1. Right-sided low back pain with right-sided sciatica M54.41 724.3 Precautions: none Onset/Referral Date: 05/19/2015 Reason for Referral: -Outpatient PT. Orders: Evaluate and treat. [facility] Services: Programming RN, Social Work, [...] with REIL Treatment/Education Today: therapeutic ex (CPT 88769)15 min time spent with orthopedic assessment manual therapy (CPT 28882) 15 min in prone, general mobilization. In supine, end range rotational thrust to the right, repeated twice, and to the left, with cavitation. Afterwards, no pain with supine to sit, and sit to stand. still is shifted, but no pain ultrasound (CPT 30835) 12 min Added: US to right LB for 10 min, 1.3 w/cm2, continous therapeutic ex (CPT 46806) 15 min Reviewed and practiced his HEP: [...] Advised to use lumbar support with sitting S COORDINATOR documented in this encounter Plan of Treatment Not on filedocumented as of this encounter Visit Diagnoses Diagnosis Right-sided low back pain with right-beck ed sciatica (HRC) - Primary documented in this encounter Care Teams Yeast Washer Relationship Specialty Start Date End Date Lurdes Thomas MD PCP - General 06/18/14 12/11/19 documented as of this encounter
--- OUTSIDE RECORDS SUMMARY | 2022-01-28 11:03 | XMS_ITS | Encounter Summary ---
:1955 Author Organization [facility] Address [address] [place] [address] Care Team Providers Name Role Phone Lurdes Thomas MD Primary Care Provider Reason for Referral Specialty Diagnoses / Procedures Referred By Contact Refer red To Contact Maria Esther Phan MD [address] [place], [place] [address] Referral ID Status Reason Start Date Expiration Date Visits Requ ested Visits Authorized LER AND BROACHER Reason for Visit Reason Comments Device Check Encounter Details Date Type Department Care Team Description 05/19/2015 Nursing Visit [facility] Shawnee Hilario, PD (Parkinson's [address] RN disease) [place] [address] Social History Tobacco Use Types [...] implantation. Surgeon:Dr. Gonzalez Rowland Surgery date/location: 09/09/24 [place] Battery replacement: None Device type: Activa PC [...] point I readjusted his range on patient website programmer. Patient website programmer range Left 2.4-2.8 Right 2.3-2.7 Total face to face programming time: 50 minutes Follow up: 6 months Supervising provider: Dr. Maria Esther Hilario, RN LER AND BROACHER documented in this encounter Plan of Treatment Scheduled Referrals Name Type Priority Associated Diagnoses Order S chedule DBS PROGRAMMING CONSULT Referral Routine PD (Parkinson's O rdered: 05/19/2015, (AMB) disease) ([facility]) Expires: 04/22 documented as of this encounter Visit Diagnoses Diagnosis PD (Parkinson's disease) ([facility]) Paralysis agitans documented in this encounter Care Teams Valve Tester Relationship Specialty Start Date End Date Lurdes Thomas MD PCP - General 06/18/14 12/11/19 documented as of this encounter
--- OUTSIDE RECORDS SUMMARY | 2022-01-28 11:03 | XMS_ITS | Encounter Summary ---
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 Discussed the process in general and [...] on filedocumented in this encounter Care Teams Chemistry Specialist Relationship Specialty Start Date End Date Lurdes Thomas MD PCP - General 06/18/14 12/11/19 documented as of this encounter
--- OUTSIDE RECORDS SUMMARY | 2022-01-28 11:03 | XMS_ITS | Encounter Summary ---
:1955 Author Organization [facility] Address [address] [address] Care Team Providers Name Role Phone Lurdes Thomas MD Primary Care Provider Reason for Visit Reason Comments Spine Lumbar Encounter Details Date Type Department Care Team Description 06/18/2015 Office Visit [place] [facility] Chris Cain, Right -sided low back Therapy Aurora Briggs, PT pain with right-sided [address] granados (Primary Dx) [place] [address] [place], [place] [phone] (Wo rk) Social History Tobacco Use Types Packs/Day Years Used Date Smoking Tobacco: Never Smokeless Tobacco: Never Alcohol Use Standard Drinks/Week Comments Yes 0 (1 standard drink = 0.6 oz pure alcoho l) Sex Assigned at Date Recorded Not on file documented as of this encounter Progress Notes Aurora Hickey, PT - 06/23/2015 2:02 PM CST Encounter date: 06/18/2015 Pt : 1955 [facility] Physical Therapy Progress Note Visit Number: 9 Initial Certification Period: 05/19/2015 to 08/17/15 Referring Provider: Dr. Maria Esther Phan Visit Diagnosis/ICD: Diagnosis ICD-10-CM ICD-9-CM 1. Right-sided low back pain with right-sided sciatica M54.41 724.3 Precautions: none Onset/Referral Date: 05/19/2015 Orders: Evaluate and treat. [facility] Services: Programming RN, Social Work, [...] above OBJ info and- therapeutic ex (CPT 92287)20 min side glides left reviewed flexion in step standing, left, than right. He still gets a little glitch on right side single leg raise in hands/knees position, 5 sec hold - in 1/2 sitting, hip hiking right for QL. He reports feeling an excellent stretch with this, no pain. ultrasound (CPT 06527) 11 min US to right LB for 10 min, 1.3 w/cm2, continuous manual therapy (CPT 95591) 12 min soft tissue mobilization, and use of teacher of the sight impaired tool to T and lumbar paraspinals Timed [...] therapy beyondinitial 6 that are set up KISS SETTER documented in this encounter Plan of Treatment Not on filedocumented as of this encounter Visit Diagnoses Diagnosis Right-sided low back pain with right-beck ed sciatica (HRC) - Primary documented in this encounter Care Teams Director Oncology Relationship Specialty Start Date End Date Lurdes Thomas MD PCP - General 06/18/14 12/11/19 documented as of this encounter
--- OUTSIDE RECORDS SUMMARY | 2022-01-28 11:04 | XMS_ITS | Encounter Summary ---
:1955 Author Organization [employer] Address [address] [address] Care Team Providers Name Role Phone Lurdes Thomas MD Primary Care Provider Encounter Details Date Type Department Care Team Description 09/23/2014 Notes/Orders [place] [facility] Jordana Ham, PT [address] [place] [address] [place] [address] [phone] (Wo rk) Social History Tobacco Use Types Packs/Day Years Used Date Smoking Tobacco: Never Smokeless Tobacco: Never Alcohol Use Standard Drinks/Week Comments Yes 0 (1 standard drink = 0.6 oz pure alcoho l) Sex Assigned at Date Recorded Not on file documented as of this encounter Discharge Summaries Jordana Ham, PT - 09/23/2014 8:52 AM CDT Encounter Date: 09/23/2014 Pt : 1955 [facility] Physical Therapy Discharge Summary Patient [...] on filedocumented in this encounter Care Teams Salvage Clerk Relationship Specialty Start Date End Date Lurdes Thomas MD PCP - General 06/18/14 12/11/19 documented as of this encounter
--- OUTSIDE RECORDS SUMMARY | 2022-01-28 11:04 | XMS_ITS | Encounter Summary ---
:1955 Author Organization [facility] Address [address] [place] [address] Care Team Providers Name Role Phone Lurdes Thomas MD Primary Care Provider Reason for Referral Specialty Diagnoses / Procedures Referred By Contact Refer red To Contact Maria Esther Phan MD [address] [place], [place] [address] Referral ID Status Reason Start Date Expiration Date Visits Requ ested Visits Authorized Reason for Visit Reason Comments Device Check Encounter Details Date Type Department Care Team Description 12/09/2014 Nursing Visit [facility] Doris Arauz, PD (Parkinson's disease) (Pr imary Dx); [address] [place] [address] Social History Tobacco Use Types [...] implantation. Surgeon: Dr. Gonzalez Rowland Surgery date/location: [facility] 09/09/14 Battery replacement: None Device [...] agitans documented in this encounter Care Teams Linseed Cake Trimmer Relationship Specialty Start Date End Date Lurdes Thomas MD PCP - General 06/18/14 12/11/19 documented as of this encounter
--- OUTSIDE RECORDS SUMMARY | 2022-01-28 11:04 | XMS_ITS | Encounter Summary ---
:1955 Author Organization [employer] Address [address] [place] [address] Care Team Providers Name Role Phone Lurdes Thomas MD Primary Care Provider Reason for Referral Specialty Diagnoses / Procedures Referred By Contact Refer red To Contact Maria Esther Phan MD [address] [place], [place] [address] Referral ID Status Reason Start Date Expiration Date Visits Requ ested Visits Authorized Reason for Visit Reason Comments Adl Problem Encounter Details Date Type Department Care Team Description 11/04/2014 Initial Consult Darrin Moore-d efined conditions(799.89) (Primary Dx); Occupational Therapy Tylor Bates, OTR/L Paralysis agitans [address] [phone] Social History Tobacco Use Types Packs/Day Years Used Date Smoking Tobacco: Never Smokeless Tobacco: Never Alcohol Use Standard Drinks/Week Comments Yes 0 (1 standard drink = 0.6 oz pure alcoho l) Sex Assigned at Date Recorded Not on file documented as of this encounter Progress Notes Tylor Marr, OTR/L - 11/08/2014 1:51 PM CDT Encounter Date: 11/04/2014 Pt. : 1955 [facility] Occupational Therapy - Evaluation/Plan of Care Initial Certification Period: 11/04/2014 to 01/03/15 Referring Provider: Dr. Maria Esther Phan Referring Diagnosis: Parkinson's Disease Visit Diagnosis/IDC Code: Diagnosis (ICD9) ICD-9-CM ICD-10-CM 1. Other ill-defined conditions(799.89) 799.89 R69 2. Paralysis agitans ([facility]) 332.0 G20 Precautions: recent DBS surgery Orders: [...] DBS(09/2014). Previous Occupational Therapy: Received at [facility] [place]. Pain: Location: back pain when getting up rom chairs , gettign up from bed, getting in/out of car. Education: High school. 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 Living Environment: Private home, more than 1 level. Living Location: [facility]. Driving: Yes. Community Mobility: Independent community ambulation-unrestricted. [...] limits. -Right upper extremity: within normal limits. -Cost Recorder: Left - 127 lbs=99%; Right -128 lbs.=99% [...] undergo successful DBS surgery. 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 H e presents to address continuing difficulty [...] or Learning: Distance from clinic. 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 Prognosis: Excellent for established goals. PLAN Planned [...] exercise program. Procedures: Occupation Therapy Evaluation (CPT 18759): 30 minutes ADL/Self management (CPT 36543): 15 minutes Therapeutic Exercise (CPT 27287): 15 minutes Total Treatment Time: 60 minutes. The web press operator is completed by the therapist and the referring clinician's electronic signature certifies medical necessity for the plan above. Tylor Marr OTR/L Lic#[id number] documented in this encounter Plan of Treatment Scheduled Referrals Name Type Priority Associated Diagnoses Order [facility] Occupational Therapy Referral Routine Paralysis agitans ([facility]) Ordered: 11/04/2014, Expires: 2014 documented as of this encounter Visit Diagnoses Diagnosis Other ill-defined conditions(799.89) - P rimary Other ill-defined conditions Paralysis agitans (HRC) Paralysis agitans documented in this encounter Care Teams Professor Of Astronomy Relationship Specialty Start Date End Date Lurdes Thomas MD PCP - General 06/18/14 12/11/19 documented as of this encounter
--- OUTSIDE RECORDS SUMMARY | 2022-01-28 11:04 | XMS_ITS | Encounter Summary ---
:1955 Author Organization [employer] Address [address] [place] [address] Care Team Providers Name Role Phone Lurdes Thomas MD Primary Care Provider Reason for Visit Reason Comments Medication Questions Encounter Details Date Type Department Care Team Description 12/08/2014 Telephone [facility] Sheri Pearson, Medication Questions [address] corina [place], [place] [address] Social History Tobacco Use [...] filedocumented in this encounter Care Teams Gas Tender Relationship Specialty Start Date End Date Lurdes Thomas MD PCP - General 06/18/14 12/11/19 documented as of this encounter
--- OUTSIDE RECORDS SUMMARY | 2022-01-28 11:04 | XMS_ITS | Encounter Summary ---
:1955 Author Organization [employer] Address [address] [address] Care Team Providers Name Role Phone Lurdes Thomas MD Primary Care Provider Reason for Visit Reason Comments Sleep problems Back Pain Questions Encounter Details Date Type Department Care Team Description 12/02/2014 Office Visit [facility] Parashos, Maria Esther Paralysis agitans [address] A, MD (Primary Dx) Drive [address] [facility] [address] [place], [place] [phone] (Wo rk) Social History Tobacco Use Types [...] Body Mass Index 27.73 07/08/2014 8:56 AM BUDGET MANAGER documented in this encounter Patient Instructions Patient InstructionsMaria Esther Phan MD - 12/02/2014 3:43 PM CDT Please call the [facility] nurse line for any questions, [...] agitans documented in this encounter Care Teams Termite Inspector Relationship Specialty Start Date End Date Lurdes Thomas MD PCP - General 06/18/14 12/11/19 documented as of this encounter
--- OUTSIDE RECORDS SUMMARY | 2022-01-28 11:04 | XMS_ITS | Encounter Summary ---
:1955 Author Organization [facility] Address [address] [address] Care Team Providers Name Role Phone Lurdes Thomas MD Primary Care Provider Encounter Details Date Type Department Care Team Description 10/06/2014 Notes/Orders [facility] Shawnee Hilario, Paralysis agitans [address] (Primary D x) [place] [address] Social History Tobacco Use Types [...] agitans documented in this encounter Care Teams Photo Technician Relationship Specialty Start Date End Date Lurdes Thomas MD PCP - General 06/18/14 12/11/19 documented as of this encounter
--- OUTSIDE RECORDS SUMMARY | 2022-01-28 11:04 | XMS_ITS | Encounter Summary ---
:1955 Author Organization [employer] Address [address], [place] [address] Care Team Providers Name Role Phone Lurdes Thomas MD Primary Care Provider Reason for Visit Reason Comments Sleep problems Encounter Details Date Type Department Care Team Description 11/12/2014 Telephone [facility] Doris Arauz, RN Sleep problems [address] [place], [place] [address] Social History Tobacco Use [...] on filedocumented in this encounter Care Teams Reflector Driller And Deburrer Relationship Specialty Start Date End Date Lurdes Thomas MD PCP - General 06/18/14 12/11/19 documented as of this encounter
--- OUTSIDE RECORDS SUMMARY | 2022-01-28 11:04 | XMS_ITS | Encounter Summary ---
:1955 Author Organization [facility] Address [address] [place] [address] Care Team Providers Name Role Phone Lurdes Thomas MD Primary Care Provider Reason for Referral Specialty Diagnoses / Procedures Referred By Contact Refer red To Contact Maria Esther Phan MD [address] [place], [place] [address] Referral ID Status Reason Start Date Expiration Date Visits Requ ested Visits Authorized Reason for Visit Reason Comments Device Check Encounter Details Date Type Department Care Team Description 10/14/2014 Nursing Visit [facility] Shawnee Hilario, RN [place] [address] [place], [place] [address] Social History Tobacco Use [...] implantation. Surgeon:Dr. Gonzalez Rowland Surgery date/location: [facility] 09/09/2014 Battery replacement: None Device type: [...] 60 Rate 150 Range on sql programmer 2.1-2.7 Right STN 9 negative 10 positive 2.1V PW 60 Rate 150 Range on sql programmer 1.8-2.6 If he wants to try [...] agitans documented in this encounter Care Teams Feed Crusher Operator Relationship Specialty Start Date End Date Lurdes Thomas MD PCP - General 06/18/14 12/11/19 documented as of this encounter
--- OUTSIDE RECORDS SUMMARY | 2022-01-28 11:04 | XMS_ITS | Encounter Summary ---
:1955 Author Organization [employer] Address [address], [place] [address] Care Team Providers Name Role Phone Lurdes Thomas MD Primary Care Provider Reason for Visit Reason Comments Back Pain Encounter Details Date Type Department Care Team Description 12/02/2014 Telephone [facility] [facility] Katalina Laughlin, PT Back Pain [address] [place] [address] [place], [place] [address] [place], [place] [phone] (Wo rk) Social History Tobacco Use [...] schedule. Offered to transfer his care to [facility], which he prefers to do. Suggested scheduling PT visit there as soon as possible. Will send email to PT at [place] to coordinate care. Katalina Laughlin PT Physical Therapist [place] License # [id number] documented in this encounter Plan of Treatment Not on filedocumented as of this encounter Visit Diagnoses Not on filedocumented in this encounter Care Teams Squeak Rattle And Leak Repairer Relationship Specialty Start Date End Date Lurdes Thomas MD PCP - General 06/18/14 12/11/19 documented as of this encounter
--- OUTSIDE RECORDS SUMMARY | 2022-01-28 11:04 | XMS_ITS | Encounter Summary ---
:1955 Author Organization [employer] Address [address] [place] [address] Care Team Providers Name Role Phone Lurdes Thomas MD Primary Care Provider Reason for Referral Specialty Diagnoses / Procedures Referred By Contact Refer red To Contact Maria Esther Phan MD [address] [place], [place] [address] Referral ID Status Reason Start Date Expiration Date Visits Requ ested Visits Authorized Reason for Visit Reason Comments Balance/gait Dysfunction Encounter Details Date Type Department Care Team Description 11/04/2014 Initial Consult [place] [facility] Katalina Laughlin normality of gait (Primary Dx); Therapy L, PT Paralysis agitans; [address] [place] [address] [facility] [place] [place] [address] [phone] Social History Tobacco Use Types Packs/Day Years [...] 1955 Physical Therapy Parkinson Evaluation/Plan of Care [facility] [place] Initial Certification Period: 11/04/2014 to 02/02/15 Referring Provider: Dr. Maria Esther Phan Visit Diagnosis/ICD: Diagnosis (ICD9) ICD-9-CM ICD-10-CM 1. Abnormality of gait 781.2 R26.9 2. Paralysis agitans (HCC) 332.0 G20 3. Personal history of fall V15.88 Z91.81 Precautions: Fall precautions, DBS Onset/Referral Date: 10/14/14 Reason for Referral: Outpatient PT. Orders: Evaluate and treat. [facility] [place] Services: Occupational therapy. Speech therapy. Exacerbation Date: [...] to residence: Stairs to enter. -[facility] 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 Did recently travel to [place] on business, however. OBJECTIVE Blood Pressure: Symptoms: [...] Goal Achievement: Distance from center (lives in [place]) Rehab Prognosis: Good PLAN Planned Treatment: ADL/Home [...] 90 day(s). Total Treatment: 60 minutes The manufacturing associate is completed by the therapist and the referring clinician's electronic signature certifies medical necessity for the plan above. Katalina Laughlin PT Physical Therapist [place] License # [id number] documented in this encounter Plan of Treatment Scheduled Referrals Name Type Priority Associated Diagnoses Order S [facility] Physical Therapy Referral Routine Paralysis agitans (HRC) Ordered: 11/04/2014, Expires: 2014 documented as of this encounter Visit Diagnoses Diagnosis Abnormality of gait - Primary Paralysis agitans (HRC) Paralysis agitans Personal history of fall documented in this encounter Care Teams Fountain Operator Relationship Specialty Start Date End Date Lurdes Thomas MD PCP - General 06/18/14 12/11/19 documented as of this encounter
--- OUTSIDE RECORDS SUMMARY | 2022-01-28 11:04 | XMS_ITS | Encounter Summary ---
:1955 Author Organization [employer] Address [address] [place] [address] Care Team Providers Name Role Phone Lurdes Thomas MD Primary Care Provider Reason for Visit Reason Comments Paperwork Encounter Details Date Type Department Care Team Description 09/15/2014 Telephone [facility] Doris Arauz, RN Paperwork [address] [place]ina [place], [place] [address] Social History Tobacco Use Types [...] CDT Doris from Dr. Phan office at [facility] called to request ON/OFF results be sent [...] in this encounter Care Teams Director Of Outreach Relationship Specialty Start Date End Date Lurdes Thomas MD PCP - General 06/18/14 12/11/19 documented as of this encounter
--- OUTSIDE RECORDS SUMMARY | 2022-01-28 11:04 | XMS_ITS | Encounter Summary ---
:1955 Author Organization [facility] Address [address], [place] [address] Care Team Providers Name Role Phone Lurdes Thomas MD Primary Care Provider Reason for Visit Reason Comments Forms Encounter Details Date Type Department Care Team Description 11/12/2014 Telephone [facility] Doris Arauz, RN Forms [address] [place], [place] [address] Social History Tobacco Use [...] filedocumented in this encounter Care Teams Family Nurse Relationship Specialty Start Date End Date Lurdes Thomas MD PCP - General 06/18/14 12/11/19 documented as of this encounter
--- OUTSIDE RECORDS SUMMARY | 2022-01-28 11:04 | XMS_ITS | Encounter Summary ---
:1955 Author Organization [facility] Address [address] [place] [address] Care Team Providers Name Role Phone Lurdes Thomas MD Primary Care Provider Encounter Details Date Type Department Care Team Description 09/25/2014 Notes/Orders [facility] Millie Pedraza MD [address] [place], [place] [address] [address] [facility] N [id number] (Wo rk) Social History Tobacco Use Types [...] filedocumented in this encounter Care Teams Barrel Drainer Relationship Specialty Start Date End Date Lurdes Thomas MD PCP - General 06/18/14 12/11/19 documented as of this encounter
--- OUTSIDE RECORDS SUMMARY | 2022-01-28 11:04 | XMS_ITS | Encounter Summary ---
:1955 Author Organization [email or web address] Address [address], [place] [address] Care Team Providers Name Role Phone Lurdes Thomas MD Primary Care Provider Encounter Details Date Type Department Care Team Description 10/22/2014 Notes/Orders [facility] 3931 Zhanna Pedraza MD Neurology 3931 [facility] 3931 [facility] [address] [place] [address] [phone] Social History Tobacco Use Types Packs/Day Years [...] on filedocumented in this encounter Care Teams Hull Outfit Supervisor Relationship Specialty Start Date End Date Lurdes Thomas MD PCP - General 06/18/14 12/11/19 documented as of this encounter
--- OUTSIDE RECORDS SUMMARY | 2022-01-28 11:04 | XMS_ITS | Encounter Summary ---
:1955 Author Organization [facility] Address [address] [place] [address] Care Team Providers Name Role Phone Lurdes Thomas MD Primary Care Provider Reason for Referral Specialty Diagnoses / Procedures Referred By Contact Refer red To Contact Maria Esther Phan MD [address] [place], [place] [address] Referral ID Status Reason Start Date Expiration Date Visits Requ ested Visits Authorized Reason for Visit Reason Comments Device Check Encounter Details Date Type Department Care Team Description 10/07/2014 Nursing Visit [facility] Shawnee Hilario, RN [place] [address] [place], [place] [address] Social History Tobacco Use [...] Dr. Gonzalez Rowland Surgery date/location: September 09 [facility] Device type: Activa PC Indication:Parkinsons Update since [...] 150 therapy impedence 1159 current 1.816 Patient Geospatial Developer Range: Left 2.1-2.7 Right 1.7-2.5. Total face [...] agitans documented in this encounter Care Teams Registered Nurse Cardiovascular Icu Relationship Specialty Start Date End Date Lurdes Thomas MD PCP - General 06/18/14 12/11/19 documented as of this encounter
--- OUTSIDE RECORDS SUMMARY | 2022-01-28 11:04 | XMS_ITS | Encounter Summary ---
:1955 Author Organization [facility] Address [address] [place] [address] Care Team Providers Name Role Phone Lurdes Thomas MD Primary Care Provider Reason for Referral Specialty Diagnoses / Procedures Referred By Contact Refer red To Contact Maria Esther Phan MD [address] [place], [place] [address] Referral ID Status Reason Start Date Expiration Date Visits Requ ested Visits Authorized Reason for Visit Reason Comments Device Check Encounter Details Date Type Department Care Team Description 11/12/2014 Nursing Visit [facility] Doris Arauz, [place] [address] [place], [place] [address] Social History Tobacco Use [...] implantation. Surgeon: Dr. Gonzalez Rowland Surgery date/location: [facility], 09/09/14 Battery replacement: None Device [...] check. Therapy impedence: 1410 on 1.579. Pt mainframe programmer analyst range: 2.1-2.7 R STN: 10 Positive, 9 Negative, Amp: 2.1, PW: 60, Rate: 150. No problems found on 1.5v impedence check. Therapy impedence: 1149 on 1.831. Pt mainframe programmer analyst range: 1.7-2.5 Final settings: No changes made. [...] documented in this encounter Care Teams Manager Procurement Relationship Specialty Start Date End Date Lurdes Thomas MD PCP - General 06/18/14 12/11/19 documented as of this encounter
--- OUTSIDE RECORDS SUMMARY | 2022-01-28 11:04 | XMS_ITS | Encounter Summary ---
:1955 Author Organization [employer] Address [address] [place] [address] Care Team Providers Name Role Phone Lurdes Thomas MD Primary Care Provider Reason for Visit Reason Comments Questions Encounter Details Date Type Department Care Team Description 11/28/2014 Telephone [facility] Doris Arauz RN Questions [address] [place], [place] [address] Social History Tobacco Use [...] on filedocumented in this encounter Care Teams Grain Elevator Worker Relationship Specialty Start Date End Date Lurdes Thomas MD PCP - General 06/18/14 12/11/19 documented as of this encounter
--- OUTSIDE RECORDS SUMMARY | 2022-01-28 11:04 | XMS_ITS | Encounter Summary ---
:1955 Author Organization [facility] Address [address], [place] [address] Care Team Providers Name Role Phone Lurdes Thomas MD Primary Care Provider Encounter Details Date Type Department Care Team Description 09/17/2014 Notes/Orders [facility] The Paige Clifford, BIOMATHEMATICIAN [address] [place], [place] [address] [place] [address] (Wo rk) Social History Tobacco [...] on filedocumented in this encounter Care Teams Unit Controller Relationship Specialty Start Date End Date Lurdes Thomas MD PCP - General 06/18/14 12/11/19 documented as of this encounter
--- OUTSIDE RECORDS SUMMARY | 2022-01-28 11:04 | XMS_ITS | Encounter Summary ---
:1955 Author Organization [facility] Address [address] [place] [address] Care Team Providers Name Role Phone Lurdes Thomas MD Primary Care Provider Reason for Referral Specialty Diagnoses / Procedures Referred By Contact Refer red To Contact Maria Esther Phan MD [address] [place], [place] [address] Referral ID Status Reason Start Date Expiration Date Visits Requ ested Visits Authorized Reason for Visit Reason Comments VOICE, LOSS OF Encounter Details Date Type Department Care Team Description 11/04/2014 Initial Consult [place] [facility] Casi De La [place] (Primary Dx); Therapy J, CONVERTIBLE TOP INSTALLER Dysphonia; [address] [place], [place] [address] [phone] Social History Tobacco Use Types Packs/Day Years Used Date Smoking Tobacco: Never Smokeless Tobacco: Never Alcohol Use Standard Drinks/Week Comments Yes 0 (1 standard drink = 0.6 oz pure alcoho l) Sex Assigned at Date Recorded Not on file documented as of this encounter Progress Notes Casi De La [place], CONVERTIBLE TOP INSTALLER - 11/04/2014 4:56 PM CDT Encounter Date: 11/04/2014 Patient : 1955 Speech Therapy - Parkinson's Disease Evaluation and Plan of Care [facility] Services Multidisciplinary Assessment Outpatient Evaluation [...] feels it is slightly worse. 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 He is on the phone [...] Any liquids. Previous Speech Therapy: Received at [facility] [place]. Evaluation 08/23/07 - WFL. Evaluation 06/18/14 with recommendation for treatment. He did not follow up then. Is ready to pursue treatmentnow. Hand Dominance: Right Hearing Acuity: Within Functional Limits. Glasses: Reading glasses. Education: High school. 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 Marital Status: . Living Environment: [...] on his own. Recommendations: Individual speech therapy. Cigar Bander Speech Goal: Client will be able to be understood without repetition 80% of the time in their daily environment as measured by patient report. Usp Swallowing Goal: -None Usp Memory/Cognition Goal: None. Short Term Goals: -Independent [...] achieve intelligible loudness. Goals Achieved Today at [facility] [place]: -Client and/or family verbalized comprehension of today's [...] family in agreement with care plan. The underwriting analyst is completed by the therapist, and the referring clinician's electronic signature certifies medical necessity for the plan above. documented in this encounter Plan of Treatment Scheduled Referrals Name Type Priority Associated Diagnoses Order S [facility] Speech Therapy Referral Routine Paralysis agitans (HRC) Or dered: 11/04/2014, Expires: 2014 documented as of this encounter Visit Diagnoses Diagnosis Paralysis agitans (HRC) - Primary Paralysis agitans Dysphonia Dysarthria documented in this encounter Care Teams Electronic Warfare Officer Relationship Specialty Start Date End Date Lurdes Thomas MD PCP - General 06/18/14 12/11/19 documented as of this encounter
--- OUTSIDE RECORDS SUMMARY | 2022-01-28 11:04 | XMS_ITS | Encounter Summary ---
:1955 Author Organization [employer] Address [address], [place] [address] Care Team Providers Name Role Phone Lurdes Thomas MD Primary Care Provider Reason for Visit Reason Comments Post-Op Follow Up Call Encounter Details Date Type Department Care Team Description 09/23/2014 Telephone [place] [facility] Shawnee Hilario RN Post-Op Follow Up Call [address] [place] [phone] Social History Tobacco Use Types Packs/Day [...] on filedocumented in this encounter Care Teams Chair Car Attendant Relationship Specialty Start Date End Date Lurdes Thomas MD PCP - General 06/18/14 12/11/19 documented as of this encounter
--- OUTSIDE RECORDS SUMMARY | 2022-01-28 11:04 | XMS_ITS | Encounter Summary ---
:1955 Author Organization [employer] Address [address], [place] [address] Care Team Providers Name Role Phone Lurdes Thomas MD Primary Care Provider Reason for Visit Reason Comments Social Service Encounter Details Date Type Department Care Team Description 10/09/2014 Telephone [facility] Fabi Quinones LISW Social Service [address] [place], [place] [address] Social History Tobacco Use [...] with PD and a well-known clinic in [place]. Natasha stated she had time today to call and inquire about insurance and get an appointment set. She was appreciative of the resources and support from Dr Phan. documented in this encounter Plan of Treatment Not on filedocumented as of this encounter Visit Diagnoses Not on filedocumented in this encounter Care Teams Decorator Consultant Relationship Specialty Start Date End Date Lurdes Thomas MD PCP - General 06/18/14 12/11/19 documented as of this encounter
--- OUTSIDE RECORDS SUMMARY | 2022-01-28 11:04 | XMS_ITS | Encounter Summary ---
:1955 Author Organization [employer] Address [address] [place] [address] Care Team Providers Name Role Phone Lurdes Thomas MD Primary Care Provider Reason for Visit Reason Comments Follow-up Encounter Details Date Type Department Care Team Description 10/07/2014 Office Visit [facility] Parashos, Sotirios Paralysis agitans [address] Gamaliel A, MD (Primary Dx) Drive 3931 [facility] [address] [place], [place] [phone] (Wo rk) Social History Tobacco Use Types [...] Body Mass Index 27.18 07/08/2014 8:56 AM MASKING MACHINE OPERATOR documented in this encounter Patient [...] a day. 2. I will have our forensic social worker, Fabi Beverly contact you and your as [...] agitans documented in this encounter Care Teams Mohel Relationship Specialty Start Date End Date Lurdes Thomas MD PCP - General 06/18/14 12/11/19 documented as of this encounter
--- OUTSIDE RECORDS SUMMARY | 2022-01-28 11:04 | XMS_ITS | Encounter Summary ---
:1955 Author Organization [facility] Address [address] [address] Care Team Providers Name Role Phone Lurdes Thomas MD Primary Care Provider Encounter Details Date Type Department Care Team Description 10/14/2014 Notes/Orders [facility] Shawnee Hilario, Paralysis agitans [address] RN (Primary D x) [place] [address] Social History Tobacco Use Types [...] documented in this encounter Care Teams Manager Digital Ad Operations Relationship Specialty Start Date End Date Lurdes Thomas MD PCP - General 06/18/14 12/11/19 documented as of this encounter
--- OUTSIDE RECORDS SUMMARY | 2022-01-28 11:05 | XMS_ITS | Encounter Summary ---
:1955 Author Organization [employer] Address [address] [place] [address] Care Team Providers Name Role Phone Lurdes Thomas MD Primary Care Provider Reason for Referral Specialty Diagnoses / Procedures Referred By Contact Refer red To Contact Maria Esther Phan MD [address] [place], [place] [address] Referral ID Status Reason Start Date Expiration Date Visits Requ ested Visits Authorized ET MAKER Reason for Visit Reason Comments VOICE, LOSS OF Encounter Details Date Type Department Care Team Description 06/18/2014 Initial Consult [place] Paieg Quesada inson's disease (Primary Dx); Therapy M, SYSTEM SOFTWARE DEVELOPER Dysphonia; [address] [address] [place] [phone] Social History Tobacco Use Types Packs/Day Years Used Date Smoking Tobacco: Never Smokeless Tobacco: Never Alcohol Use Standard Drinks/Week Comments Yes 0 (1 standard drink = 0.6 oz pure alcoho l) Sex Assigned at Date Recorded Not on file documented as of this encounter Progress Notes Paige Garcia, SYSTEM SOFTWARE DEVELOPER - 06/18/2014 5:17 PM CST Encounter Date: 06/18/2014 Patient : 1955 Speech Therapy - Parkinson's Disease Evaluation and Plan of Care [facility] Services Multidisciplinary Assessment Clinic Outpatient Evaluation Initial [...] Previous Speech Therapy: Received at [facility] [place]. Evaluation only 08/23/2007. Hand Dominance: Right Hearing Acuity: Within Functional Limits. Glasses: No. Education: High school. 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 Marital Status: . Living Environment: Lives [...] Recommendations: Brief course of individual speech therapy. Brick Cleaner Speech Goal: Client will be able to be understood without repetition 80% of the time in their daily environment as measured by patient report. Brick Cleaner Swallowing Goal: -None Brick Cleaner Memory/Cognition Goal: None. Short Term Goals: -Independent in speech/voice home program. -Client will improve respiratory support for speech and voice to provide a basis for intelligible speech. -Client will increase articulation accuracy for improved speech intelligibility. -Client will decrease speech rate for improved intelligibility. Goals Achieved Today at [facility] [place]: -Client and/or family verbalized comprehension of today's [...] family in agreement with care plan. The automatic grinder operator is completed by the therapist, and the referring clinician's electronic signature certifies medical necessity for the plan above. documented in this encounter Plan of Treatment Scheduled Referrals Name Type Priority Associated Diagnoses Order S [facility] Speech Therapy Referral Routine Paralysis agitans (HRC) Or dered: 06/20/2014, Expires: 2014 documented as of this encounter Visit Diagnoses Diagnosis Parkinson's disease (HRC) - Primary Dysphonia Paralysis agitans (HRC) Paralysis agitans documented in this encounter Care Teams Pourer Metal Relationship Specialty Start Date End Date Lurdes Thomas MD PCP - General 06/18/14 12/11/19 documented as of this encounter
--- OUTSIDE RECORDS SUMMARY | 2022-01-28 11:05 | XMS_ITS | Encounter Summary ---
:1955 Author Organization [employer] Address [address] [place] [address] Care Team Providers Name Role Phone Lurdes Thomas MD Primary Care Provider Reason for Referral Specialty Diagnoses / Procedures Referred By Contact Refer red To Contact Maria Esther Phan MD [address] [place], [place] [address] Referral ID Status Reason Start Date Expiration Date Visits Requ ested Visits Authorized T TIME NANNY Reason for Visit Reason Comments Social Service Encounter Details Date Type Department Care Team Description 06/18/[address] [facility] Fabi Beverly Paralys is [facility] Services ASSEMBLED WOOD PRODUCTS REPAIRER [address] cor[place], [place] [address] Social History Tobacco Use [...] Deep Brain Stimulation (DBS) Assessment at the [facility]. Assessment: Current Social Situation Pt and his live in their home in [place]. The pt does have any children, but his has two. The pt is close to his step-daughter and her family. 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 He has been open about [...] have time to discuss during this session. Ball Machine Operator provided contact information and explained availability to answer any further questions or concerns. Session was 50 minutes long. T TIME NANNY documented in this encounter Plan of Treatment Scheduled Referrals Name Type Priority Associated Diagnoses Order S chedule [facility] Referral Routine Paralysis agitans (HRC) Ordered: 06/20/2014, CONSULT (AMB) Expires: 06/20 documented as of this encounter Visit Diagnoses Diagnosis Paralysis agitans (HRC) Paralysis agitans documented in this encounter Care Teams Strategic Partnership Specialist Relationship Specialty Start Date End Date Lurdes Thomas MD PCP - General 06/18/14 12/11/19 documented as of this encounter
--- OUTSIDE RECORDS SUMMARY | 2022-01-28 11:05 | XMS_ITS | Encounter Summary ---
:1955 Author Organization [facility] Address [address] [place] [address] Care Team Providers Name Role Phone No Primary/Referring, Phy Primary Care Provider Unavailable Reason for Visit Reason Comments Appt. Scheduled Encounter Details Date Type Department Care Team Description 05/20/2014 Telephone [facility] Sheri Pearson RN Appt. Scheduled [address] [place] [address] Social History Tobacco [...] scheduled for on Monday. It is at [facility] at [place]. Y SEWER documented in this encounter Plan of Treatment Not on filedocumented as of this encounter Visit Diagnoses Not on filedocumented in this encounter Care Teams Wax Cutter Relationship Specialty Start Date End Date No Primary/Referring, Lupilloy PCP - General 01/22/14 documented as of this encounter
--- OUTSIDE RECORDS SUMMARY | 2022-01-28 11:05 | XMS_ITS | Encounter Summary ---
:1955 Author Organization [facility] Address [address] [address] Care Team Providers Name Role Phone Lurdes Thomas MD Primary Care Provider Reason for Visit Reason Comments Questions Encounter Details Date Type Department Care Team Description 07/09/2014 Telephone [facility] Sheri Pearson, RN Questions [address] [place], [place] [address] Social History Tobacco Use [...] he will hear from them to schedule. CE MACHINE SERVICE SUPERVISOR documented in this encounter Plan of Treatment Not on filedocumented as of this encounter Visit Diagnoses Not on filedocumented in this encounter Care Teams Three Dimensional Map Modeler Relationship Specialty Start Date End Date Lurdes Thomas MD PCP - General 06/18/14 12/11/19 documented as of this encounter
--- OUTSIDE RECORDS SUMMARY | 2022-01-28 11:05 | XMS_ITS | Encounter Summary ---
:1955 Author Organization [employer] Address [address] [address] Care Team Providers Name Role Phone Lurdes Thomas MD Primary Care Provider Encounter Details Date Type Department Care Team Description 06/25/2014 Notes/Orders [facility] Millie Pedraza MD [address] [place], [place] [address] [address] [facility] N [id number] (Wo rk) Social History Tobacco Use Types [...] Phan will meet with him on 07/08/14/ TOLOGIC SUPERVISOR documented in this encounter Plan of Treatment Not on filedocumented as of this encounter Visit Diagnoses Not on filedocumented in this encounter Care Teams Racing Car Driver Relationship Specialty Start Date End Date Lurdes Thomas MD PCP - General 06/18/14 12/11/19 documented as of this encounter
--- OUTSIDE RECORDS SUMMARY | 2022-01-28 11:05 | XMS_ITS | Encounter Summary ---
:1955 Author Organization [facility] Address [address], [place] [address] Care Team Providers Name Role Phone Lurdes Thomas MD Primary Care Provider Encounter Details Date Type Department Care Team Description 06/18/2014 Notes/Orders [facility] Doris Arauz, Paralysis agitans [address] (Primary D x) [place] [address] Social History Tobacco Use Types [...] had . Older the 90 days. Thanks. NICAL SUPPORT AGENT documented in this encounter Plan of Treatment Not on filedocumented as of this encounter Visit Diagnoses Diagnosis Paralysis agitans (HRC) - Primary Paralysis agitans documented in this encounter Care Teams Career Orientation Teacher Relationship Specialty Start Date End Date Lurdes Thomas MD PCP - General 06/18/14 12/11/19 documented as of this encounter
--- OUTSIDE RECORDS SUMMARY | 2022-01-28 11:05 | XMS_ITS | Encounter Summary ---
:1955 Author Organization [facility] Address [address], [place] [address] Care Team Providers Name Role Phone Unavailable Primary Care Provider Unavailable Encounter Details Date Type Department Care Team Description 09/22/2010 PN Conversion Only Alexey Tolentino, [facility] [place] [address] [address] [facility] [place] [address] (Wo rk) Social History Tobacco Use Types Packs/Day Years Used Date Smoking Tobacco: Never Assessed Sex Assigned at Date Recorded Not on file documented as of this encounter Plan of Treatment Not on filedocumented as of this encounter Visit Diagnoses Not on filedocumented in this encounter
--- OUTSIDE RECORDS SUMMARY | 2022-01-28 11:05 | XMS_ITS | Encounter Summary ---
:1955 Author Organization [employer] Address [address], [place] [address] Care Team Providers Name Role Phone Lurdes Thomas MD Primary Care Provider Reason for Visit Reason Comments Follow-up Encounter Details Date Type Department Care Team Description 07/08/2014 Office Visit [facility] Parashos, Sotirios Paralysis agitans [address] Roberta A, MD (Primary Dx) Drive 39[address] [facility] [address] [place], [place] [phone] (Wo rk) Social History Tobacco Use Types Packs/Day Years Used Date Smoking Tobacco: Never Smokeless Tobacco: Never Alcohol Use Standard Drinks/Week Comments Yes 0 (1 standard drink = 0.6 oz pure alcoho l) Sex Assigned at Date Recorded Not on file documented as of this encounter Last Filed Vital Signs Vital Sign Reading Time Taken Comments Blood Pressure 138/78 07/08/2014 9:00 AM HEALTH OFFICER Pulse 84 07/08/2014 9:00 AM HEALTH OFFICER Temperature - - Respiratory Rate - - Oxygen Saturation - - Inhaled Oxygen Concentration - - Weight 98.5 kg (217 lb 3.2 oz) 07/08/2014 8:56 AM HEALTH OFFICER Height 185.4 cm (6' 0.99) 07/08/2014 8:56 AM HEALTH OFFICER Body Mass Index 28.66 07/08/2014 8:56 AM HEALTH OFFICER documented in this encounter Patient Instructions Patient Doris Awad RN - 07/08/2014 8:56 AM CST Thank you for enrolling in [employer]. Please follow the instructions below to securely access your online medical record. [employer] allows you to send messages to your doctor, view your test results, renewyour prescriptions, schedule appointments, and more. How Do I Sign Up? 1. In your Internet browser, go to: [email or web address] 2. Click on the Enter Activation Code link under the New User? section. You will see the New Member Sign Up page. 3. Enter your [employer] Activation Code exactly as it appears below. You will not need to use this code after you???ve completed the sign-up process. If you do not sign up before the expiration date, youmust request a new code. [employer] Activation Code: [email or web address] Expires: 08/07/2014 8:56 AM 4. Enter your Date of (mm/dd/yyyy), Home Phone Number and Zip Code as indicated, then click Next. You will be taken to the next sign-up page 5. Create a [employer] ID. This will be your [employer] login ID and cannot be changed, so think of one that is secure and easy to remember. 6. Create a [employer] password. You can change your password at any time. 7. Enter your Security Question and Answer. This can be used at a later time if you forget your password. Click Next. 8. Enter your e-mail address. You will receive e-mail notification when new information is availablein [employer]. 9. Click Sign In. You can now view your medical record. Additional Information If you have questions, you can call [phone] to talk to our [employer] staff. Remember, [employer] is NOT to be used for urgent needs. For medical emergencies, dial 911. TH OFFICER documented in this encounter Progress Notes Maria Esther Phan MD - 07/08/2014 9:59 AM CST Dictated TH OFFICER documented in this encounter Plan of Treatment Not on filedocumented as of this encounter Visit Diagnoses Diagnosis Paralysis agitans (HRC) - Primary Paralysis agitans documented in this encounter Care Teams Barrel Builder Relationship Specialty Start Date End Date Lurdes Thomas MD PCP - General 06/18/14 12/11/19 documented as of this encounter
--- OUTSIDE RECORDS SUMMARY | 2022-01-28 11:05 | XMS_ITS | Encounter Summary ---
:1955 Author Organization [employer] Address [address] [address] Care Team Providers Name Role Phone Lurdes Thomas MD Primary Care Provider Encounter Details Date Type Department Care Team Description 06/18/2014 Initial Consult Usha Mcpherson Para lysis agitans Services (Primary Dx) [address] [place] [address] Social History Tobacco Use Types [...] Living Environment Lives with . Living Location: [place], [place] Leisure Activities: Not discussed during session. [...] agitans documented in this encounter Care Teams Dental Office Coordinator Relationship Specialty Start Date End Date Lurdes Thomas MD PCP - General 06/18/14 12/11/19 documented as of this encounter
--- OUTSIDE RECORDS SUMMARY | 2022-01-28 11:05 | XMS_ITS | Encounter Summary ---
:1955 Author Organization [employer] Address [address] [place] [address] Care Team Providers Name Role Phone No Primary/Referring, Phy Primary Care Provider Unavailable Reason for Visit Reason Comments Establish Care MEDICATION CHECK Encounter Details Date Type Department Care Team Description 01/28/2014 Office Visit Kiara Zepeda Hyperlipide cierra (Primary Dx); Rober Aviles MD Parkinson's disease; [address] [facility] [address] [place] [address] Screening for diabetes mellitus; [place] [address] [place] [address] Screening for prostate cancer; [phone] Special screeni ng for malignant neoplasms, colon; [...] go directly to the clinic???s lab to sweet pickle maker your test kit. There will be specific [...] COLLECTION KIT PREP (01/28/2014 9:30 AM CDT) [facility] gist Method Time Signature FIT Kit Prep Collection Kit [facility] Given to LABORATORIES Patient Specimen Anatomical Collection Method Collection Time Receive d Time (Source) Location / / Volume Laterality 01/28/2014 9:30 AM 4 9:31 CDT AM CDT Narrative [facility] - 02/04/2014 8:08 AM C DT Performed at [facility], [facility], [place] [address] Kiara Cristina MD LAB_1 Performing Organization Address City/State/ZIP Code Phon e Number [facility] [phone] PROSTATIC SPECIFIC ANTIGEN(SCREEN) (V76.44) (01/28/2014 9:30 AM CDT) P athologist Signature Prostatic Spec 0.97 0.00 - [facility] Ag 4.00 ng/ml LABORATORIES Specimen Anatomical Collection Method Collection Time Receive d Time (Source) Location / / Volume Laterality 01/28/2014 9:30 AM 4 9:31 CDT AM CDT Narrative [facility] - 01/28/2014 7:22 PM C DT Performed at [facility], [address] [place] [address] ??[id number] Kiara Cristina MD LAB_1 Performing Organization Address City/[facility]/ZIP Code Phon e Number [facility] [phone] (ABNORMAL) VITAMIN D 25-HYDROXY, TOTAL (V77.99) (01/28/2014 9:30 AM CDT) [facility] gist Method Time Signature Vitamin 14.8 [...] 01/28/2014 9:27 PM C DT Performed at [facility] , [address] [place] [address] Kiara Cristina MD LAB_1 Performing Organization Address City/State/ZIP Code Phon e Number [facility] [phone] LIVER PANEL(HEPATIC FUNCTION PANEL) (01/28/2014 9:30 AM CDT) [facility] Method Time Signature Alkaline 89 [...] 01/28/2014 7:22 PM C DT Performed at [facility], [address] [place] [address] ??[id number] Kiara Cristina MD LAB_1 Performing Organization Address City/[facility] Phon e Number [facility] [phone] HGB A1C (01/28/2014 9:30 AM CDT) athologist Signature Hgb A1c 5.9 4.3 - 6.1 % [facility] Specimen Anatomical Collection Method Collection Time Receive d Time (Source) Location / / Volume Laterality 01/28/2014 9:30 AM 4 9:31 CDT AM CDT Narrative [facility] - 01/29/2014 9:55 AM C DT Performed at [facility], [address] [place] [address] ??[id number] Kiara Cristina MD LAB_1 Performing Organization Address City/[facility] Phon e Number [facility] [phone] (ABNORMAL) LIPID PANEL AND DIRECT LDL(IF NEEDED) (01/28/2014 9:30 AM CDT) Component Value Ref Test Analysis Performed At [facility] Range Method Time Signature Hours [...] 01/28/2014 7:22 PM C DT Performed at [facility], [address] [place] [address] ??[id number] Kiara Cristina MD LAB_1 Performing Organization Address City/State/ZIP Code Phon e Number [facility] [phone] documented in this encounter Visit Diagnoses Diagnosis Hyperlipidemia (HRC) - Primary Other and unspecified hyperlipidemia Parkinson's disease (HRC) Screening for diabetes mellitus Screening for prostate cancer Special screening for malignant neoplasm of prostate Special screening for malignant neoplasm s, colon Preventative health care Routine general medical examination at a health care facility documented in this encounter Care Teams Glass Science Engineer Relationship Specialty Start Date End Date No Primary/Referring, Phy PCP - General 01/22/14 documented as of this encounter
--- OUTSIDE RECORDS SUMMARY | 2022-01-28 11:05 | XMS_ITS | Encounter Summary ---
:1955 Author Organization [employer] Address [address] [place] [address] Care Team Providers Name Role Phone Lurdes Thomas MD Primary Care Provider Reason for Referral Specialty Diagnoses / Procedures Referred By Contact Refer red To Contact Maria Esther Phan MD [address] [place], [place] [address] Referral ID Status Reason Start Date Expiration Date Visits Requ ested Visits Authorized SION HEAD Reason for Visit Reason Comments CONSULT Encounter Details Date Type Department Care Team Description 06/18/2014 Nursing Visit [facility] Doris Arauz, PD (Parkinson's disease) (Pr imary Dx); [address] [place], [place] [address] Social History Tobacco Use Types Packs/Day Years Used Date Smoking Tobacco: Never Smokeless Tobacco: Never Alcohol Use Standard Drinks/Week Comments Yes 0 (1 standard drink = 0.6 oz pure alcoho l) Sex Assigned at Date Recorded Not on file documented as of this encounter Progress Notes Doris Arauz RN - 06/18/2014 5:16 PM CST Andrew came to [facility] for DBS TAC with his . States [...] CR: 900mg MoCA: Midi: 0 Vargas: 15 SION HEAD documented in this encounter Plan of Treatment Scheduled Referrals Name Type Priority Associated Diagnoses Order S angélica [facility] NURSING Referral Routine Paralysis agitans (HRC) Ordered: 06/20/2014, CONSULT (AMB) Expires: 06/20 documented as of this encounter Visit Diagnoses Diagnosis PD (Parkinson's disease) (HRC) - Primary Paralysis agitans Paralysis agitans (HRC) Paralysis agitans documented in this encounter Care Teams Engineer Exhauster Relationship Specialty Start Date End Date Lurdes Thomas MD PCP - General 06/18/14 12/11/19 documented as of this encounter
--- OUTSIDE RECORDS SUMMARY | 2022-01-28 11:05 | XMS_ITS | Encounter Summary ---
:1955 Author Organization [employer] Address [address] [address] Care Team Providers Name Role Phone No Primary/Referring, Phy Primary Care Provider Unavailable Reason for Visit Reason Comments Questions Encounter Details Date Type Department Care Team Description 05/05/2014 Telephone [facility] Fabi Ray, RN Questions [address] corina [place], [place] [address] Social History Tobacco Use [...] Phan. He sees Dr. Phan now in [place] due to copay. Explained that best if results appointment can be [place] [facility] he can meet with the DBS nurse after. Also explained will need to see the DBS nurse at [facility] post DBS if approved for surgery. Good comprehension of plan. Transferred to front line to set up results appointment with Dr. Phan and to review pre-DBS appointments. Post-note: Confirmed with front line that 05/26/13 appt is for MRI and neuropsych with Dr. Ramirez. R SLICER documented in this encounter Plan of Treatment Not on filedocumented as of this encounter Visit Diagnoses Not on filedocumented in this encounter Care Teams Excelsior Machine Tender Relationship Specialty Start Date End Date No Primary/Referring, Phy PCP - General 01/22/14 documented as of this encounter
--- OUTSIDE RECORDS SUMMARY | 2022-01-28 11:05 | XMS_ITS | Encounter Summary ---
:1955 Author Organization [employer] Address [address], [place] [address] Care Team Providers Name Role Phone Lurdes Thomas MD Primary Care Provider Reason for Referral Specialty Diagnoses / Procedures Referred By Contact Refer red To Contact Maria Esther Phan MD [address] [place], [place] [address] Referral ID Status Reason Start Date Expiration Date Visits Requ ested Visits Authorized ALLER Reason for Visit Reason Comments Balance/gait Dysfunction Encounter Details Date Type Department Care Team Description 06/18/2014 Initial Consult [facility] Jordana Ham (Primary Dx); Therapy M, PT Abnormality of gait; [address] [place] [id number] Social History Tobacco Use Types Packs/Day Years [...] 1955 Physical Therapy Parkinson Evaluation/Plan of Care [facility] Initial Certification Period: 06/18/2014 to 09/16/14 Referring Provider: Dr. Maria Esther Phan Visit Diagnosis/ICD: Diagnosis (ICD9) ICD-9-CM 1. Paralysis agitans (HCC) 332.0 2. Abnormality of gait 781.2 3. Risk for falls V15.88 Precautions: No precautions Onset/Referral Date: 06/18/2014 Reason for Referral: -Pre-Deep Brain Stimulation (Physical Therapist, Occupational Therapist, Speech and Language Pathologist, Second Rigger, Registered Nurse). Orders: Evaluate and treat. [place] Parkinson's [place] Services: None. Exacerbation Date: 05/22/2014 Last Referring [...] to residence: Stairs to enter. -Living location: [facility] area. -Living environment: Urban-mostly paved areas [...] in winter. Communication: Clear. Low volume. 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 Currently working [...] a distance away from clinic and works manager property, but is agreeable to come back for [...] 90 days. Total Treatment: 60 minutes The environmental studies professor is completed by the therapist and the [...] Name Type Priority Associated Diagnoses Order S [facility] Physical Therapy Referral Routine Paralysis agitans (HRC) Ordered: 06/20/2014, Expires: 2014 documented as of this encounter Visit Diagnoses Diagnosis Paralysis agitans (HRC) - Primary Paralysis agitans Abnormality of gait Risk for falls Personal history of fall documented in this encounter Care Teams Banking Supervisor Relationship Specialty Start Date End Date Lurdes Thomas MD PCP - General 06/18/14 12/11/19 documented as of this encounter
--- OUTSIDE RECORDS SUMMARY | 2022-01-28 11:05 | XMS_ITS | Encounter Summary ---
:1955 Author Organization [facility] Address [address] [address] Care Team Providers Name Role Phone No Primary/Referring, Phy Primary Care Provider Unavailable Reason for Visit Reason Comments Patient Calling Back Encounter Details Date Type Department Care Team Description 04/15/2014 Telephone [facility] Shawnee Hilario, RN Patient Calling Back [address] corina Lamas [place], [place] [address] [...] TAC. States he spoke with Doris at [facility] and has an appointment set up 05/26/14. Do not see this appointment in our system at [place]. Transferred him to [facility]. Shawnee Hilario RN - 04/15/2014 4:22 PM CST Patient left a message on the DBS nurse line stating he was returning a call about scheduling DBS. We had called him a month or so ago to tell him about our process and our understanding was he wanted to wait until After May because of insurance reasons. It may have been the hotel front desk agent calling himto schedule. Left him a message asking him to speak to Gricelda. NCT LATIN PROFESSOR documented in this encounter Plan of Treatment Not on filedocumented as of this encounter Visit Diagnoses Not on filedocumented in this encounter Care Teams Switchbox Assembler Relationship Specialty Start Date End Date No Primary/Referring, Phy PCP - General 01/22/14 documented as of this encounter
--- OUTSIDE RECORDS SUMMARY | 2022-01-28 11:05 | XMS_ITS | Encounter Summary ---
:1955 Author Organization [employer] Address [address] [address] Care Team Providers Name Role Phone Lurdes Thomas MD Primary Care Provider Reason for Visit Reason Comments Other Encounter Details Date Type Department Care Team Description 07/08/2014 Nursing Visit [facility] Doris Arauz, PD (Parkinson's [address] RN disease) ( Primary Dx) [place] [address] Social History Tobacco Use Types [...] Dr. Kp Phan. MD Doris Arauz, RN ASURER documented in this encounter Plan of Treatment Not on filedocumented as of this encounter Visit Diagnoses Diagnosis PD (Parkinson's disease) (HRC) - Primary Paralysis agitans documented in this encounter Care Teams Newspaper Photo Editor Relationship Specialty Start Date End Date Lurdes Thomas MD PCP - General 06/18/14 12/11/19 documented as of this encounter
--- OUTSIDE RECORDS SUMMARY | 2022-01-28 11:05 | XMS_ITS | Encounter Summary ---
:1955 Author [facility] Address [address] [address] Care Team Providers Name Role Phone Unavailable Primary Care Provider Unavailable Encounter Details Date Type Department Care Team Description 11/19/2012 Notes/Orders [facility] Katalina Laughlin, PT [address] [address] [place] [address] [place], [place] [phone] (Wo rk) Social History Tobacco Use Types Packs/Day Years Used Date Smoking Tobacco: Never Assessed Sex Assigned at Date Recorded Not on file documented as of this encounter Progress Notes Katalina Laughlin, PT - 11/19/2012 9:58 AM CDT No show for scheduled PT consult appointment this morning. Katalina Laughlin PT, [facility] License # [id number] documented in this encounter Plan of Treatment Not on filedocumented as of this encounter Visit Diagnoses Not on filedocumented in this encounter
--- OUTSIDE RECORDS SUMMARY | 2022-01-28 11:05 | XMS_ITS | Encounter Summary ---
:1955 Author Organization [facility] Address [address], [place] [address] Care Team Providers Name Role Phone Lurdes Thomas MD Primary Care Provider Encounter Details Date Type Department Care Team Description 07/23/2014 Notes/Orders [facility] Millie Pedraza MD [address] [place], [place] [address] [address] [facility] N [id number] (Wo rk) Social History Tobacco Use Types [...] surgery, as he was getting some benefits. MAKER documented in this encounter Plan of Treatment Not on filedocumented as of this encounter Visit Diagnoses Not on filedocumented in this encounter Care Teams Chemical Maker Relationship Specialty Start Date End Date Lurdes Thomas MD PCP - General 06/18/14 12/11/19 documented as of this encounter
--- OUTSIDE RECORDS SUMMARY | 2022-01-28 11:05 | XMS_ITS | Encounter Summary ---
:1955 Author Organization [facility] Address [address], [place] [address] Care Team Providers Name Role Phone No Primary/Referring, Phmyah Primary Care Provider Unavailable Encounter Details Date Type Department Care Team Description 01/30/2014 Orders Only [facility] Kiara Cristina, Vitamin D deficiency [address] Ross MD (Primary Dx) [place] [phone] [address] [phone] [place] [id number] (Wo rk) Social History Tobacco Use [...] deficiency documented in this encounter Care Teams Grain Distributor Relationship Specialty Start Date End Date No Primary/Referring, Lilliana PCP - General 01/22/14 documented as of this encounter
--- OUTSIDE RECORDS SUMMARY | 2022-01-28 11:05 | XMS_ITS | Encounter Summary ---
:1955 Author Organization Counts include 234 beds at the [facility] Address [address], [place] [address] Care Team Providers Name Role Phone No Primary/Referring, Phy Primary Care Provider Unavailable Reason for Visit Reason Comments Questions Encounter Details Date Type Department Care Team Description 06/06/2014 Telephone [facility] Doris Arauz, RN Questions [address] corina Lamas [place], [place] [address] Social History Tobacco Use [...] Andrew called asking for number of [employer] Manager [employer]. Emailed our reps and Lyric stated it was okay to give him her number: [phone] Called Andrew and gave him her number. PARTS SALESPERSON documented in this encounter Plan of Treatment Not on filedocumented as of this encounter Visit Diagnoses Not on filedocumented in this encounter Care Teams Policy Writer Sales Relationship Specialty Start Date End Date No Primary/Referring, Lupilloy PCP - General 01/22/14 documented as of this encounter
--- OUTSIDE RECORDS SUMMARY | 2022-01-28 11:05 | XMS_ITS | Encounter Summary ---
:1955 Author Organization [facility] Address [address] [place] [address] Care Team Providers Name Role Phone Unavailable Primary Care Provider Unavailable Encounter Details Date Type Department Care Team Description 08/17/2009 PN Conversion Only MARCO CONVERSION Alexey Garcia, [address] [place] [address] [address] [place], [place] [address] (Wo rk) Social History [...] Greater than 150 ng/m L Performed at [facility] [address] [place] [address]10 8 Specimen (Source) Anatomical Collection Method Collection Time Re ceived Time Location / / Volume Laterality 08/17/2009 8:30 AM CDT Alexey Garcia MD LAB_1 Performing Organization Address City/[facility] Code Phon e Number HP CONVERSION Prostatic Specific Antigen (F/U) (08/17/2009 8:30 AM CDT) P athologist Signature Prostate 0.6 0.0 - 4.0 HP CONVERSION Specific ng/mL Antigen Specimen (Source) Anatomical Collection Method Collection Time Re ceived Time Location / / Volume Laterality 08/17/2009 8:30 AM CDT Alexey Garcia MD LAB_1 Performing Organization Address City/[facility]/ZIP Code Phon e Number HP CONVERSION [...] Alexey Garcia MD LAB_1 Performing Organization Address City/[facility] Code Phon e Number HP CONVERSION (ABNORMAL) GLUCOSE (08/17/2009 8:30 AM CDT) P athologist Signature Lab Glucose 105 (H) 60 - 100 HP CONVERSION mg/dL Specimen (Source) Anatomical Collection Method Collection Time Re ceived Time Location / / Volume Laterality 08/17/2009 8:30 AM CDT Alexey Garica MD LAB_1 Performing Organization Address [facility] Phon e Number HP CONVERSION ALT (SGPT) (08/17/2009 8:30 AM CDT) [facility] Method Time Signature Alanine 33 4 - 55 HP CONVERSION Aminotransferase U/L Specimen (Source) Anatomical Collection Method Collection Time Re ceived Time Location / / Volume Laterality 08/17/2009 8:30 AM CDT Alexey Garcia MD LAB_1 Performing Organization Address [facility] Phon e Number HP CONVERSION documented in this encounter Visit Diagnoses Not on filedocumented in this encounter
--- OUTSIDE RECORDS SUMMARY | 2022-01-28 11:05 | XMS_ITS | Encounter Summary ---
:1955 Author Organization [facility] Address [address] [place] [address] Care Team Providers Name Role Phone Lurdes Thomas MD Primary Care Provider Reason for Referral Specialty Diagnoses / Procedures Referred By Contact Refer red To Contact Maria Esther Phan MD [address] [place], [place] [address] Referral ID Status Reason Start Date Expiration Date Visits Requ ested Visits Authorized D CLERK Reason for Visit Reason Comments Adl Problem Encounter Details Date Type Department Care Team Description 06/18/2014 Initial Consult Angela Moore (Primary Dx); Occupational Therapy Tylor Bates OTR/L Other ill-defined conditions(799.89) [address] [address] [place] [id number] Social History Tobacco Use Types Packs/Day Years Used Date Smoking Tobacco: Never Smokeless Tobacco: Never Alcohol Use Standard Drinks/Week Comments Yes 0 (1 standard drink = 0.6 oz pure alcoho l) Sex Assigned at Date Recorded Not on file documented as of this encounter Progress Notes Tylor Marr OTR/Stefan - 06/18/2014 4:45 PM CST Encounter Date: 06/18/2014 Pt. : 1955 [facility] Occupational Therapy - Evaluation/Plan of [...] Completion of Pre DBS assessment and customer care manager of recommendations. Past Medical History: Past medical history, medication, and allergies were reviewed in the electronic medical record. Pertinent to therapy: Restless leg syndrome. . Previous Occupational Therapy: Unknown. Pain: Location: Back pain in morning. Education: High school. 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 Living Location: [facility]. Driving: Yes. Community Mobility: Assistive device - [...] limits. -Right upper extremity: within normal limits. -Sample Weaver: Left - 99 lbs =75%; Right - [...] equipment for increased handwriting legibility using: Wide lance crewmember pen. Aim big. Write slower. Response to [...] Achievement or Learning: Distance from clinic. 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 Prognosis: Excellent for established goals. PLAN: Evaluation [...] exercise program. Procedures: Occupation Therapy Evaluation (CPT 98413): 30 minutes ADL/Self management (CPT 11084): 30 minutes Total Treatment Time: 60 minutes. The manager laboratory is completed by the therapist and the referring clinician's electronic signature certifies medical necessity for the plan above. Tylor Marr OTR/L Lic#[id number] documented in this encounter Plan of Treatment Scheduled Referrals Name Type Priority Associated Diagnoses Order [facility] Occupational Therapy Referral Routine Paralysis agitans (H RC) Ordered: 06/20/2014, Expires: 2014 documented as of this encounter Visit Diagnoses Diagnosis Paralysis agitans (HRC) - Primary Paralysis agitans Other ill-defined conditions(799.89) Other ill-defined conditions documented in this encounter Care Teams Supervisor Real Estate Office Relationship Specialty Start Date End Date Lurdes Thomas MD PCP - General 06/18/14 12/11/19 documented as of this encounter
--- OUTSIDE RECORDS SUMMARY | 2022-01-28 11:05 | XMS_ITS | Encounter Summary ---
:1955 Author [facility] Address [address], [place] [address] Care Team Providers Name Role Phone Lurdes Thomas MD Primary Care Provider Encounter Details Date Type Department Care Team Description 08/20/2014 Notes/Orders [facility] Millie Pedraza MD [address] [place], [place] [address] [address] [facility] [address] [address] (Wo rk) Social History Tobacco Use Types [...] on filedocumented in this encounter Care Teams Welcome Desk Agent Relationship Specialty Start Date End Date Lurdes Thomas MD PCP - General 06/18/14 12/11/19 documented as of this encounter
--- OUTSIDE RECORDS SUMMARY | 2022-01-28 11:06 | XMS_ITS | Encounter Summary ---
:1955 [address] [facility] Address [address] [place] [address] Care Team Providers Name Role Phone Unavailable Primary Care Provider Unavailable Encounter Details Date Type Department Care Team Description 05/11/2006 PN Conversion Only AIRPORT CONVERSION [address] [place] [address] Social History Tobacco Use Types Packs/Day Years Used Date Smoking Tobacco: Never Assessed Sex Assigned at Date Recorded Not on file documented as of this encounter Plan of Treatment Not on filedocumented as of this encounter Visit Diagnoses Not on filedocumented in this encounter
--- OUTSIDE RECORDS SUMMARY | 2022-01-28 11:06 | XMS_ITS | Encounter Summary ---
:1955 [facility] Address [address] [place] [address] Care Team Providers Name Role Phone Unavailable Primary Care Provider Unavailable Encounter Details Date Type Department Care Team Description 07/22/2008 [facility]ational Logan Croft, Medicine [address] [place] [address] [place] [address] Social History Tobacco Use Types Packs/Day Years Used Date Smoking Tobacco: Never Assessed Sex Assigned at Date Recorded Not on file documented as of this encounter Plan of Treatment Not on filedocumented as of this encounter Visit Diagnoses Not on filedocumented in this encounter
--- OUTSIDE RECORDS SUMMARY | 2022-01-28 11:06 | XMS_ITS | Encounter Summary ---
:1955 Author Organization [facility] Address [address] [place] [address] Care Team Providers Name Role Phone Unavailable Primary Care Provider Unavailable Encounter Details Date Type Department Care Team Description 07/22/2008 PN Conversion Only AIRPORT CONVERSION [address] [place] [address] Social History Tobacco Use Types Packs/Day Years Used Date Smoking Tobacco: Never Assessed Sex Assigned at Date Recorded Not on file documented as of this encounter Plan of Treatment Not on filedocumented as of this encounter Visit Diagnoses Not on filedocumented in this encounter
--- OUTSIDE RECORDS SUMMARY | 2022-01-28 11:06 | XMS_ITS | Encounter Summary ---
:1955 Author Organization [facility] Address [address] [place] [address] Care Team Providers Name Role Phone Unavailable Primary Care Provider Unavailable Encounter Details Date Type Department Care Team Description 08/23/2007 Therapy CONV METH SP Jasbir Laughlin NATUROPATHIC PHYSICIAN [address] [facility] Liliam Joshi N [phone] (Wo rk) Social History Tobacco Use Types [...] 0322 Note Time: 08/23/07 0001 Status: Signed City Sanitarian: Bárbara Laughlin CCC-NATUROPATHIC PHYSICIAN (Speech and Language Pathologist) [facility] [place] [facility] - Parkinson's Disease Evaluation Primary [...] No. Smoking: No. Education: High school. 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 Marital Status: . Living Arrangement: Lives with spouse. Safety in living environment: Patient feels safe in current living environment. Vulnerable adult assessment = low risk OBJECTIVE Behavioral Characteristics: Alert. Motivated. Cooperative. Tests Administered: [facility] Assessment of Communication in Parkinson's Disease - [...] One time evaluation and treatment only at [facility] [place]. Insole Reinforcer goals: -Maximize speech and voice for functional [...] 60 minutes. Electronically signed by: Bárbara Laughlin MA/LAVELL-NATUROPATHIC PHYSICIAN, 5063, 08/23/2007 *SH~REHAB~SPARKEVAL~ Shorthand Note Completed on: 08/23/2007 1:19 PM documented in this encounter Plan of Treatment Not on filedocumented as of this encounter Visit Diagnoses Not on filedocumented in this encounter
--- OUTSIDE RECORDS SUMMARY | 2022-01-28 11:06 | XMS_ITS | Encounter Summary ---
:1955 Author Organization [facility] Address [address] [place] [address] Care Team Providers Name Role Phone Unavailable Primary Care Provider Unavailable Encounter Details Date Type Department Care Team Description 12/04/2007 Hospital Encounter CONV METH PKDKpV Nela Soriano, RN [address], [place] [address] Social History Tobacco Use Types Packs/Day Years [...]
--- OUTSIDE RECORDS SUMMARY | 2022-01-28 11:06 | XMS_ITS | Encounter Summary ---
:1955 [facility] Address [address], [place] [address] Care Team Providers Name Role Phone Unavailable Primary Care Provider Unavailable Encounter Details Date Type Department Care Team Description 08/17/2009 Office Visit [facility] Alexey Alvarez MD [address] [employer] [address] [place] [address] [place] [address] [phone] (Wo rk) Social History Tobacco Use Types [...] - documented in this encounter Progress Notes Aelxey Garcia MD - 08/17/2009 12:01 AM CDT Progress Notes signed by Alexey Garcia MD at 08/17/09 [id number] Author: Alexey Garcia MD Service: (none) Author Type: Physician Filed: 09/11/102113 Note Time: 08/17/09 0001 Status: Signed Junior Underwriter: Alexey Garcia MD (Physician) SUBJECTIVE: 54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 He has no side effects. He formerly was with [facility] and his insurance is changed. He has Parkinson's and sees Dr. Phan for its management in [place]. The remainder of the complete ROS is [...]
--- OUTSIDE RECORDS SUMMARY | 2022-01-28 11:06 | XMS_ITS | Encounter Summary ---
:1955 Author [facility] Address [address] [place] [address] Care Team Providers Name Role Phone Unavailable Primary Care Provider Unavailable Encounter Details Date Type Department Care Team Description 05/04/2009 PN Conversion Only CANTEEN MANAGER [address] [place] [address] Social History Tobacco Use Types Packs/Day Years Used Date Smoking Tobacco: Never Assessed Sex Assigned at Date Recorded Not on file documented as of this encounter Plan of Treatment Not on filedocumented as of this encounter Visit Diagnoses Not on filedocumented in this encounter
--- OUTSIDE RECORDS SUMMARY | 2022-01-28 11:06 | XMS_ITS | Encounter Summary ---
:1955 Author [facility] Address [address] [place] [address] Care Team Providers Name Role Phone Unavailable Primary Care Provider Unavailable Encounter Details Date Type Department Care Team Description 05/11/2006 Office Visit [place] Charanjit Webster [facility] [address] [address] Social History Tobacco Use Types Packs/Day Years Used Date Smoking Tobacco: Never Assessed Sex Assigned at Date Recorded Not on file documented as of this encounter Plan of Treatment Not on filedocumented as of this encounter Visit Diagnoses Not on filedocumented in this encounter
--- OUTSIDE RECORDS SUMMARY | 2022-01-28 11:06 | XMS_ITS | Encounter Summary ---
:1955 Author Organization [facility] Address [address] [place] [address] Care Team Providers Name Role Phone Unavailable Primary Care Provider Unavailable Encounter Details Date Type Department Care Team Description 07/30/2007 PN Conversion Only ANABAPTISM CONVERSION Social History Tobacco Use Types Packs/Day Years Used Date Smoking Tobacco: Never Assessed Sex Assigned at Date Recorded Not on file documented as of this encounter Plan of Treatment Not on filedocumented as of this encounter Visit Diagnoses Not on filedocumented in this encounter
--- OUTSIDE RECORDS SUMMARY | 2022-01-28 11:06 | XMS_ITS | Encounter Summary ---
:1955 [facility] Address [address], [place] [address] Care Team Providers Name Role Phone Unavailable Primary Care Provider Unavailable Encounter Details Date Type Department Care Team Description 07/31/2007 Hospital Encounter CONV METH PKDSV Nela Soriano, RN [address], [place] [address] Social History Tobacco Use Types Packs/Day Years [...] Therapist, Occupational Therapist, Speech and Language Pathologist, Recycling Program Manager, Registered Nurse). Orders: Evaluate and treat. Exacerbation Date: 08/21/2007 Initial Certification Dates: 08/23/2007 to 09/21/07 SUBJECTIVE: Mobility Limitations Reported: Denies limitations. Balance/Falls in past 6 months: None reported. Motor Fluctuations: No. Pain Screen: No pain. Past Medical History: Unremarkable per patient report. Support System: Lives with primary adult live in caregiver. Living Situation: Private home, more than 1 level. [facility] Living Environment: Urban-mostly paved areas to ambulate. Community Mobilities: Driving-unrestricted. Frequency of Outings: Leaves home on a daily basis. Leisure Activities: Plays guitar. Formal Exercises: Walking-treadmill or indoors. Weight lifting. Yoga. Exercise Frequency: Several times per week. Communication: Clear. 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 Travels several times a year. Patient's [...] -Exercise handouts. Procedures: Physical Therapy Evaluation (CPT 78330) Therapeutic Exercise (CPT 26085) 30 minutes TOTAL TREATMENT TIME: 60 minutes. Electronically signed by: Sandrine Martinez, PT, 7471, 08/23/2007 *SH~REHAB~PTPARKEVA~ Shorthand Note completed on: 08/23/2007 3:15 PM documented in this encounter Plan of Treatment Not on filedocumented as of this encounter Visit Diagnoses Not on filedocumented in this encounter
--- OUTSIDE RECORDS SUMMARY | 2022-01-28 11:06 | XMS_ITS | Encounter Summary ---
:1955 Author Organization [facility] Address [address] [place] [address] Care Team Providers Name Role Phone Unavailable Primary Care Provider Unavailable Encounter Details Date Type Department Care Team Description 05/05/2009 Nursing Visit [facility] [place] [address] [place] [address] Social History Tobacco Use Types Packs/Day Years Used Date Smoking Tobacco: Never Assessed Sex Assigned at Date Recorded Not on file documented as of this encounter Plan of Treatment Not on filedocumented as of this encounter Visit Diagnoses Not on filedocumented in this encounter
--- OUTSIDE RECORDS SUMMARY | 2022-01-28 11:06 | XMS_ITS | Encounter Summary ---
:1955 Author [facility] Address [address] [place] [address] Care Team Providers Name Role Phone Unavailable Primary Care Provider Unavailable Encounter Details Date Type Department Care Team Description 05/06/2008 Hospital Encounter CONV METH PKDNela Arellano, RN [address], [place] [address] Social History Tobacco Use Types Packs/Day Years [...]
[2022-01-28 14:41] LABS: Chloride* 94 mmol/L (96-114)
[2022-01-28 14:42] LABS: Potassium* 4.4 mmol/L (3.6-5.1); Sodium* 130 mmol/L (135-149)
[2022-01-28 14:44] LABS: Carbon Dioxide* 27 mmol/L (20-32); Creatinine* 0.7 mg/dL (0.5-1.5); Estimated Glomerular Filt Rate 102 ml/min
[2022-01-28 14:45] LABS: Blood Urea Nitrogen* 43 mg/dL (7-30); Calcium* 7.9 mg/dL (8.4-10.6); Glucose* 133 mg/dL (60-115)
== END 2022-01-28 10:24 | disposition home or self-care (01) ==
PROVIDERS: PCP Family Medicine; Visit Provider Surgery
DX: R53.1 Weakness (principal); G20 Parkinson's disease
CPT/HCPCS: 80048

== ENCOUNTER 2022-02-02 09:17 | Inpatient (IN) | payer BC, SELFPAY ==
[2022-02-02] VITALS (15 sets, daily range): BP systolic 120–150; BP diastolic 78–150; PULSE 88–99; RESP 16–20; TEMP 36.3–36.6; O2SAT 95–100; BMI 19.8; BMI 19.5
--- NOTE | 2022-02-02 09:52 | CRLHL7_ITS ---
For Patients: As a result of the Century Cures Act, medical imaging exams and procedure reports are released immediately into your electronic medical record. You may view this report before your referring provider. If you have questions, please contact your health care provider. INDICATION: Postop nausea. Heller myotomy. COMPARISON: June 20, 2021 TECHNIQUE: CT examination of the abdomen and pelvis was performed following the uneventful intravenous administration of 74 cc of Isovue 3 7. Thin section axial images were obtained from the lung bases through the pubic symphysis. Oral contrast was not administered. Please note that all CT scans at this facility use dose modulation, iterative reconstruction, and/or weight-based dosing when appropriate to reduce radiation dose to as low as reasonably achievable. FINDINGS: LUNG BASES: The lung bases as visualized appear normal.The heart size is normal at the lung bases. LIVER/BILIARY SYSTEM:The liver is normal in size and configuration. There is no focal mass and there is no intra- or extra hepatic biliary ductal dilatation.Hepatic steatosis. The gallbladder appears normal. ADRENALS: Normal KIDNEYS, URETERS and BLADDER:The kidneys appear normal. No visible mass, calculus or hydronephrosis. The ureters and bladder as visualized appear normal. SPLEEN:Normal appearance. PANCREAS: Appears normal. RETROPERITONEUM and MESENTERY: There is no mass, adenopathy or aortic aneurysm. Atherosclerotic vascular calcification GASTROINTESTINAL SYSTEM: The distal esophagus and stomach appear normal. There is diffuse dilation of bowel primarily small though there is fluid distention the remaining colon. This could be a functional process such is an ileus though a partial obstruction is suspected. There is postoperative change in the right flank which appears represent a complex anastomotic site. Some of this appears masslike, for example on axial image 67 and may represent an anastomotic stricture. There is surrounding inflammatory change. It is entirely difficult postop fluid collection in this area. There is no measurable collection identified. There is no pneumatosis or free air. PELVIS: No mass, adenopathy or free fluid. OSSEOUS STRUCTURES and ABDOMINAL WALL: There is an age-appropriate appearance of the osseous structures.No significant abdominal wall defect. OTHER: No free fluid or free air. I discussed this case with Dr. Christensen at 1045 on February 02, 2022 IMPRESSION: 1. Regarding the history of Heller myotomy, the distal esophagus and stomach show no specific abnormal findings. 2. Diffusely dilated bowel. This is primarily small bowel but portions of the remaining colon are dilated as well. This could be functional such as a chronic ileus though a partial obstruction is suspected. 3. There is anastomotic site in the right mid abdomen with surrounding inflammatory change. Dense opacity in this area is probably narrowing possibly due to an anastomotic stricture. This is best seen on coronal image number 30 and axial image 66. Surrounding inflammatory change without measurable collection. Please note that all CT scans at this facility use dose modulation, iterative reconstruction, and/or weight-based dosing when appropriate to reduce radiation dose to as low as reasonably achievable. Dictated by Eduardo Peoples MD @ 02/02/2022 10:51:45 AM (Electronically Signed)
--- NOTE | 2022-02-02 09:56 | ED.GENADULT ---
HPI - General Adult General Time Seen by Provider: 09:56 Date Seen: 02/02/22 Chief complaint: Weakness Stated complaint: Recent surgery possible infection Time Seen by Provider: 02/02/22 09:23 Source: patient Mode of arrival: wheelchair Limitations: physical limitation History of Present Illness HPI narrative: Patient is a 66-year-old male with history of Parkinson's disease, has had a Heller myotomy of his distal esophagus, and recently had an ileostomy for perforation and subsequent takedown 3 and half weeks ago with Dr. Marley here as a nurse general surgeon. Since then he has had constipation problems, difficulty eating and drinking, nausea, and now severe weakness: He feels like he can not get up and even go to the bathroom without falling, his reports she can not take care many further and can not lift him remove him. He denies fever, chills, cough, chest pain, dysuria frequency. He has had no diarrhea. He has a history of a low sodium. He really denies any significant pain. Does report he has no appetite and feels nauseated when he tries to eat anything, and he has not really drinker ate anything in the last 24 hours. He feels very weak as mentioned and feels unsafe unsteady at home. Related Data Home Medications Medication Instructions Recorded Confirmed amantadine HCl 137 mg 274 mg PO HS 11/25/21 02/02/22 capsule,extended release 24 hr carbidopa ER 61.25 mg-levodopa 245 1 cap PO QID 11/25/21 02/02/22 mg capsule,extended release citalopram 10 mg tablet 10 mg PO DAILY 11/25/21 02/02/22 ondansetron 4 mg disintegrating 4 mg PO Q8H PRN 11/25/21 02/02/22 tablet pravastatin 80 mg tablet 80 mg PO HS 01/10/22 02/02/22 simethicone 125 mg chewable tablet 125 - 250 mg PO BID PRN 01/25/22 02/02/22 (Mylanta Gas) carbidopa 25 mg-levodopa 100 mg 1 tab PO BID PRN 02/02/22 02/02/22 tablet Previous Rx's Medication Instructions Recorded omeprazole 40 mg capsule,delayed 40 mg PO BID #180 caps 12/07/21 release polyethylene glycol 3350 17 17 g PO DAILY #119 grams 01/13/22 gram/dose oral powder (Miralax) sodium chloride 1 gram tablet 1,000 mg PO TID PRN electrolyte 01/17/22 replenishment #30 tabs sodium chloride 1,000 mg soluble 1 g PO TID #30 tabs 01/17/22 tablet Allergies Allergy/AdvReac Type Severity Reaction Status Date / Time No Known Allergies Allergy Verified 02/02/22 10:22 Review of Systems Status of ROS: Reports: 10 or more systems reviewed and unremarkable except as noted in History and below [facility] Medical History Achalasia of esophagus (12/2020) Cavitary lesion of lung (11/2020) Constipated Degeneration of intervertebral disc of cervical region (2011) Depression (2006) Dyslipidemia Gastroesophageal reflux disease Ileostomy present (~06/2021) Obstructive sleep apnea treated with continuous positive airway pressure (CPAP) Orthostatic hypotension Parkinson's disease (2005) Perforation of intestine (06/20/21) Prediabetes (2012) Restless legs syndrome (2010) Syncope Vitamin D deficiency Surgical History H/O ileostomy H/O right hemicolectomy (~05/2021) History of cervical discectomy (1999) History of discectomy (2000) History of esophageal surgery (12/2020) History of hernia repair (1965) Status post deep brain stimulator placement (08/2014) Status post Matthew fundoplication (03/18/21) Status post reversal of ileostomy (01/10/22) Surgically created abdominal mucous fistula Family History Father Coronary artery disease Mother Coronary artery disease Stroke, Onset Age: 74 Family/Other Parkinsons disease, Onset Age: 50 Social History Narrative: exercises regularly. 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, 1 step daughter Non-smoker Rare alcohol use Highest level of school completed/degree received: high school graduate Smoking Status: Never smoker How often do you have a drink containing alcohol: monthly or less Alcohol type: wine How many standard drinks containing alcohol do you have on a typical day: 1 or 2 AUDIT-C Alcohol total score: 1 Non-prescribed substance use: denies use Caffeine: Yes (coffee daily) Little interest or pleasure in doing things: not at all Feeling down, depressed, or hopeless: not at all service: No Exam Narrative: Exam Narrative: Objective: Patient's vital signs are unremarkable, he appears cachectic, slightly pale, his mouth is very dry HEENT unremarkable other than above Neck is supple Chest is clear Pulses regular Abdomen benign soft nontender common he has got a iodoform wick in is healing wound in the abdomen the looks non cellulitic, abdomen is soft to palpation, no rebound, no distention. Extremities are no edema Neurologic nonfocal Skin warm and dry. Const: Vital Signs, click to edit/add: Vital Signs - 24 hr 02/02/22 09:52 02/02/22 09:29 02/02/22 09:58 Temperature 97.4 F L Pulse Rate 99 Pulse Rate [Left P ulse Oximeter] 98 Blood Pressure Blood Pressure [Ri ght Upper Arm] 133/83 Pulse Oximetry 99 98 97 Oxygen Delivery Me thod Room Air 02/02/22 10:00 02/02/22 10:44 02/02/22 11:24 Temperature Pulse Rate 98 98 94 Pulse Rate [Left P ulse Oximeter] Blood Pressure 133/80 Blood Pressure [Ri ght Upper Arm] Pulse Oximetry 97 100 99 Oxygen Delivery Me thod 02/02/22 11:32 02/02/22 12:01 Temperature Pulse Rate Pulse Rate [Left P ulse Oximeter] Blood Pressure 125/80 128/78 Blood Pressure [Ri ght Upper Arm] Pulse Oximetry Oxygen Delivery Me thod Course Vital Signs Vital signs: Initial Vital Signs Temperature 97.4 F L 02/02/22 09:29 Temperature Source Temporal Artery Scan 02/02/22 09:29 Pulse Rate 98 02/02/22 09:29 Blood Pressure 133/83 02/02/22 09:29 Blood Pressure Mean 99 02/02/22 09:29 Blood Pressure Position Supine 02/02/22 09:29 Pulse Oximetry 98 02/02/22 09:29 Oxygen Delivery Method 02/02/22 09:29 Vital Signs Temperature 97.4 F L 02/02/22 09:29 Pulse Rate 98 02/02/22 09:29 Blood Pressure 133/83 02/02/22 09:29 Pulse Oximetry 98 02/02/22 09:29 Oxygen Delivery Method 02/02/22 09:29 Temperature 97.5 F L 02/02/22 12:44 Pulse Rate 91 02/02/22 12:44 Respiratory Rate 16 02/02/22 12:51 Blood Pressure 150/150 H 02/02/22 12:44 Pulse Oximetry 98 02/02/22 12:51 Oxygen Delivery Method 02/02/22 12:51 Medical Decision Making MDM Narrative Medical decision making narrative: Patient has a complicated history of Parkinson's disease, esophageal dysmotility status post Heller myotomy for this in the past, and now has significant weakness, nausea, inability to take fluids or food well. He is able to swallow but he just feels nauseated and sick and has no appetite. At this point he is very weak and is unsteady unable to manage at home. At this point will repeat his CT scan of his abdomen with IV contrast, this should look at his lower esophagus as well as his abdomen pelvis. Will check laboratory studies, IV hydration, IV nausea medication the form of Zofran. He has a swallow study scheduled this morning and will proceed with that as well as a CT scan. Patient likely needs admission given he can not manage at home even with his 's assistance, and will determine if surgical consult needed. Addendum: The patient has a anastomotic stricture, possible small-bowel obstruction by CT scan there is some anastomotic for mass/collection that may be causing the chronic stricture. Will get surgical consultation disposition pending their recommendations. Addendum: Discussed with Dr. Benavidez who recommended observation, hospitalization, IV fluids, treat like a small bowel obstruction, surgical consultation will be obtained as well. Dr. Bhandari will kindly accepts for the hospitalist team. Lab Data Labs: Lab Results 02/02/22 02/02/22 02/02/22 Range/Units 09:45 10:08 10:08 WBC 4.51 (4.50-11.00) K/uL RBC 4.72 (4.30-5.90) m/uL Hgb 14.1 (13.5-17.5) gm/dL Hct 42.0 (37.0-53.0) % MCV 89 (80-100) fL MCH 30 (26-34) pg MCHC 34 (32-36) gm/dL RDW Coeff of Latoya 13.2 (11.5-15.5) % Plt Count 351 (140-440) K/uL Neut % (Auto) 65.8 (42.0-72.0) % Lymph % (Auto) 22.0 (20-44) % [place] % (Auto) 11.8 H (0.0-11.0) % Eos % (Auto) 0.2 (0.0-7.0) % Baso % (Auto) 0.2 (0.0-3.0) % Neut # (Auto) 2.97 (1.7-7.0) K/uL Lymph # (Auto) 0.99 (0.90-2.90) K/uL [place] # (Auto) 0.50 (0.00-0.90) K/UL Eos # (Auto) 0.01 (0.00-0.50) K/uL Baso # (Auto) 0.01 (0.00-0.30) K/uL Abs Immat Gran (auto) 0.00 (0.00-0.30) K/uL INR 0.98 (0.91-1.10) Sodium (135-149) mmol/L Potassium (3.6-5.1) mmol/L Chloride (96-114) mmol/L Carbon Dioxide (20-32) mmol/L BUN (7-30) mg/dL Creatinine (0.5-1.5) mg/dL Estimated Creat Clear Estimated GFR ml/min Glucose (60-115) mg/dL Lactate (0.5-1.9) mmol/L Calcium (8.4-10.6) mg/dL Total Bilirubin (0.1-1.5) mg/dL Direct Bilirubin (0.0-0.5) mg/dL AST (12-35) U/L ALT (4-50) U/L Alkaline Phosphatase (40-150) U/L C-Reactive Protein (0.5-1.0) mg/dL NT-Pro-B Natriuret Pep (0-125) PG/mL Total Protein (6.0-8.3) g/dL Albumin (3.3-5.0) g/dL Amylase (18-89) U/L TSH (0.270-4.20) uIU/mL Urine Color (Yellow) Urine Appearance (Clear) Urine pH (5.0-8.5) Ur Specific [place] (1.000-1.030) Urine Protein (Negative) Urine Glucose (UA) (Negative) Urine Ketones (Negative) Urine Blood (Negative) Urine Nitrite (Negative) Urine Bilirubin (Negative) Urine Urobilinogen (0.2-1.0) Ur Leukocyte Esterase (Negative) Urine RBC (0-2) Urine WBC (0-5) Ur Squamous Epith Cells (None-Few) Urine Bacteria (None) SARS-CoV-2 (PCR) Negative SARS-CoV-2 (Negative) Influenza Type A (PCR) Negative PCR FLU A (Negative) Influenza Type B (PCR) Negative PCR FLU B (Negative) 02/02/22 02/02/22 02/02/22 Range/Units 10:08 10:08 10:08 WBC (4.50-11.00) K/uL RBC (4.30-5.90) m/uL Hgb (13.5-17.5) gm/dL Hct (37.0-53.0) % MCV (80-100) fL MCH (26-34) pg MCHC (32-36) gm/dL RDW Coeff of Latoya (11.5-15.5) % Plt Count (140-440) K/uL Neut % (Auto) (42.0-72.0) % Lymph % (Auto) (20-44) % [place] % (Auto) (0.0-11.0) % Eos % (Auto) (0.0-7.0) % Baso % (Auto) (0.0-3.0) % Neut # (Auto) (1.7-7.0) K/uL Lymph # (Auto) (0.90-2.90) K/uL [place] # (Auto) (0.00-0.90) K/UL Eos # (Auto) (0.00-0.50) K/uL Baso # (Auto) (0.00-0.30) K/uL Abs Immat Gran (auto) (0.00-0.30) K/uL INR (0.91-1.10) Sodium 131 L (135-149) mmol/L Potassium 3.8 (3.6-5.1) mmol/L Chloride 91 L (96-114) mmol/L Carbon Dioxide 29 (20-32) mmol/L BUN 30 (7-30) mg/dL Creatinine 0.8 (0.5-1.5) mg/dL Estimated Creat Clear 70.87 Estimated GFR 98 ml/min Glucose 109 (60-115) mg/dL Lactate 0.9 (0.5-1.9) mmol/L Calcium 8.5 (8.4-10.6) mg/dL Total Bilirubin 0.6 (0.1-1.5) mg/dL Direct Bilirubin 0.4 (0.0-0.5) mg/dL AST 18 (12-35) U/L ALT 5 (4-50) U/L Alkaline Phosphatase 133 (40-150) U/L C-Reactive Protein 0.9 (0.5-1.0) mg/dL NT-Pro-B Natriuret Pep 97 (0-125) PG/mL Total Protein 6.4 (6.0-8.3) g/dL Albumin 3.8 (3.3-5.0) g/dL Amylase 55 (18-89) U/L TSH 2.980 (0.270-4.20) uIU/mL Urine Color (Yellow) Urine Appearance (Clear) Urine pH (5.0-8.5) Ur Specific [place] (1.000-1.030) Urine Protein (Negative) Urine Glucose (UA) (Negative) Urine Ketones (Negative) Urine Blood (Negative) Urine Nitrite (Negative) Urine Bilirubin (Negative) Urine Urobilinogen (0.2-1.0) Ur Leukocyte Esterase (Negative) Urine RBC (0-2) Urine WBC (0-5) Ur Squamous Epith Cells (None-Few) Urine Bacteria (None) SARS-CoV-2 (PCR) (Negative) Influenza Type A (PCR) (Negative) Influenza Type B (PCR) (Negative) 02/02/22 Range/Units 10:55 WBC (4.50-11.00) K/uL RBC (4.30-5.90) m/uL Hgb (13.5-17.5) gm/dL Hct (37.0-53.0) % MCV (80-100) fL MCH (26-34) pg MCHC (32-36) gm/dL RDW Coeff of Latoya (11.5-15.5) % Plt Count (140-440) K/uL Neut % (Auto) (42.0-72.0) % Lymph % (Auto) (20-44) % [place] % (Auto) (0.0-11.0) % Eos % (Auto) (0.0-7.0) % Baso % (Auto) (0.0-3.0) % Neut # (Auto) (1.7-7.0) K/uL Lymph # (Auto) (0.90-2.90) K/uL [place] # (Auto) (0.00-0.90) K/UL Eos # (Auto) (0.00-0.50) K/uL Baso # (Auto) (0.00-0.30) K/uL Abs Immat Gran (auto) (0.00-0.30) K/uL INR (0.91-1.10) Sodium (135-149) mmol/L Potassium (3.6-5.1) mmol/L Chloride (96-114) mmol/L Carbon Dioxide (20-32) mmol/L BUN (7-30) mg/dL Creatinine (0.5-1.5) mg/dL Estimated Creat Clear Estimated GFR ml/min Glucose (60-115) mg/dL Lactate (0.5-1.9) mmol/L Calcium (8.4-10.6) mg/dL Total Bilirubin (0.1-1.5) mg/dL Direct Bilirubin (0.0-0.5) mg/dL AST (12-35) U/L ALT (4-50) U/L Alkaline Phosphatase (40-150) U/L C-Reactive Protein (0.5-1.0) mg/dL NT-Pro-B Natriuret Pep (0-125) PG/mL Total Protein (6.0-8.3) g/dL Albumin (3.3-5.0) g/dL Amylase (18-89) U/L TSH (0.270-4.20) uIU/mL Urine Color Yellow (Yellow) Urine Appearance Clear (Clear) Urine pH 7.5 (5.0-8.5) Ur Specific [place] 1.015 (1.000-1.030) Urine Protein Negative (Negative) Urine Glucose (UA) Negative (Negative) Urine Ketones 3+ A (Negative) Urine Blood Negative (Negative) Urine Nitrite Negative (Negative) Urine Bilirubin 1+ A (Negative) Urine Urobilinogen 0.2 (0.2-1.0) Ur Leukocyte Esterase Negative (Negative) Urine RBC 0-2 (0-2) Urine WBC 0-2 (0-5) Ur Squamous Epith Cells Few (None-Few) Urine Bacteria None (None) SARS-CoV-2 (PCR) (Negative) Influenza Type A (PCR) (Negative) Influenza Type B (PCR) (Negative) Discharge Plan Discharge Clinical Impression: Fatigue, Weakness Discharge Location: [facility] Prescriptions: No Action amantadine HCl 137 mg capsule,extended release 24hr 274 mg PO HS carbidopa-levodopa 61.25-245 mg capsule, extended release 1 cap PO QID citalopram 10 mg tablet 10 mg PO DAILY ondansetron 4 mg tablet,disintegrating 4 mg PO Q8H PRN omeprazole 40 mg capsule,delayed release(DR/EC) 40 mg PO BID Qty: 180 4RF simethicone [Mylanta Gas] 125 mg tablet,chewable 125 - 250 mg PO BID PRN carbidopa-levodopa 25-100 mg tablet 1 tab PO BID PRN pravastatin 80 mg tablet 80 mg PO HS polyethylene glycol 3350 [Miralax] 17 gram/dose powder 17 g PO DAILY Qty: 119 0RF sodium chloride 1,000 mg Tablet,Soluble 1 g PO TID Qty: 30 0RF sodium chloride 1 gram tablet 1,000 mg PO TID PRN (Reason: electrolyte replenishment) Qty: 30 0RF Follow Up/Referrals: Samantha Stauffer MD [Primary Care Provider] -
[2022-02-02 10:12] LABS: Basophils Absolute Auto 0.01 K/uL (0.00-0.30); Basophils Percent Auto 0.2 % (0.0-3.0); Eosinophils Absolute Auto 0.01 K/uL (0.00-0.50); Eosinophils Percent Auto 0.2 % (0.0-7.0); Hemoglobin* 14.1 gm/dL (13.5-17.5); Lymphocytes Absolute Auto 0.99 K/uL (0.90-2.90); Mean Corpuscular HGB Conc 34 gm/dL (32-36); Mean Corpuscular Hemoglobin 30 pg (26-34); Mean Corpuscular Volume 89 fL (80-100); Monocytes Percent Auto 11.8 % (0.0-11.0); Neutrophils Absolute Auto 2.97 K/uL (1.7-7.0); Neutrophils Percent Auto 65.8 % (42.0-72.0); Platelet Count* 351 K/uL (140-440); RDW Coefficient of Variation % 13.2 % (11.5-15.5); Red Blood Count 4.72 m/uL (4.30-5.90); White Blood Count* 4.51 K/uL (4.50-11.00)
[2022-02-02] MEDS: ONDANSETRON 2 MG/ML inj 4 MG IVP (10:19)
[2022-02-02 10:28] LABS: Albumin* 3.8 g/dL (3.3-5.0); Chloride* 91 mmol/L (96-114); Sodium* 131 mmol/L (135-149)
[2022-02-02 10:29] LABS: Potassium* 3.8 mmol/L (3.6-5.1)
[2022-02-02 10:30] LABS: Lactate* 0.9 mmol/L (0.5-1.9)
[2022-02-02 10:31] LABS: Alkaline Phosphatase* 133 U/L (40-150); Amylase* 55 U/L (18-89); Aspartate Amino Transferase* 18 U/L (12-35); Bilirubin Direct* 0.4 mg/dL (0.0-0.5); Bilirubin Total* 0.6 mg/dL (0.1-1.5); Blood Urea Nitrogen* 30 mg/dL (7-30); Carbon Dioxide* 29 mmol/L (20-32); Creatinine* 0.8 mg/dL (0.5-1.5); Est. Creatinine Clearance* 70.87; Estimated Glomerular Filt Rate 98 ml/min; Total Protein* 6.4 g/dL (6.0-8.3)
[2022-02-02 10:32] LABS: Alanine Aminotransferase* 5 U/L (4-50); Calcium* 8.5 mg/dL (8.4-10.6); Glucose* 109 mg/dL (60-115)
[2022-02-02 10:32] LABS: PCR FLU A Negative PCR FLU A (Negative); PCR FLU B Negative PCR FLU B (Negative)
[2022-02-02 10:34] LABS: C Reactive Protein* 0.9 mg/dL (0.5-1.0)
[2022-02-02 10:36] LABS: SARS PCR* Negative SARS-CoV-2 (Negative)
[2022-02-02 10:40] LABS: NT Pro B Type NatriureticPept* 97 PG/mL (0-125); Slide Review Reflex No
[2022-02-02] MEDS: 0.9 % SODIUM CHLORIDE 1000 ml 1,000 ML 6000 ML IV (10:40)
--- NOTE | 2022-02-02 10:56 | ED.NURSE ---
Pt assisted to stand at the bedside and use the urinal. UA collected. Pt unsteady but able to stand with assist of one.
[2022-02-02 10:59] LABS: Appearance Urine Clear (Clear); Bilirubin Urine 1+ (Negative); Blood Urine Negative (Negative); Color Urine Yellow (Yellow); Glucose Urine Negative (Negative); Ketones Urine 3+ (Negative); Leukocyte Esterase Urine Negative (Negative); Nitrite Urine Negative (Negative); Protein Urine Negative (Negative); Specific Gravity Urine 1.015 (1.000-1.030); Urobilinogen Urine 0.2 (0.2-1.0); pH Urine 7.5 (5.0-8.5)
[2022-02-02 11:00] LABS: INR 0.98 (0.91-1.10); Prothrombin Time 13.4 Seconds
[2022-02-02 11:16] LABS: RBC Urine 0-2 (0-2); Squamous Epithelial Cell Urine Few (None-Few); WBC Urine 0-2 (0-5)
--- OUTSIDE RECORDS SUMMARY | 2022-02-02 11:46 | XMS_ITS | Encounter Summary ---
:1955 Author Organization [facility] Address [address] [place] [address]. [place] [address] Care Team Providers Name Role Phone Lurdes Thomas MD Primary Care Provider [phone] Encounter Details Date Type Department Care Team Description 08/08/2020 Immunization [facility] [address] [place] [address]14 Social History Tobacco Use Types Packs/Day [...] on filedocumented in this encounter Care Teams Conveyancer Relationship Specialty Start Date End Date Lurdes Thomas MD PCP - General Internal Medicine 06/11/14 12/16/20 documented as of this encounter
--- OUTSIDE RECORDS SUMMARY | 2022-02-02 11:46 | XMS_ITS | Clinical Summary ---
:1955 Author Organization [facility] Address [address] [place] [address] Care Team Providers Name Role Phone Samantha Stauffer MD Primary Care Provider [phone] Allergies No known active allergies Medications [...] Comments Lipids Father 1 Cardiovascular Father 2 RI, s/p CABG in mid- late 60's Diabetes Father 2 Neurologic Disorder Father 2 Parkinson's Cardiovascular Mother CVA x4 and RI, s/p C ABG in mid-late 60's Relation [...] this topic Medical Devices Implanted Type Area Sheep Boner Device Shelf Model / Identifier Expiration Date Ser ial / Lot Fiducials Skull IMAGE GUIDED 06/12/2017 [id number] / Implanted: Qty: 5 on 09/09/2014 by Demetrio gale, Gonzalez Snider MD at [facility] NEUROLO / [id number] Description: 5 fiducials used - opened 1 box for charging (contains 6 in box). Done in the clinic - reported to us by Alliso n [employer] [id number] Right: Chest [employer]-NEURO 12/17/2015 [id number] / Implanted: Qty: 1 on 09/16/2014 by Demetrio gale, Gonzalez Snider MD at [facility] [id number] / Insurance Payer Benefit Plan / Subscriber ID Effective Dates Phone Addre ss Type Group BCBS BCBS OUT OF [id number] 2014-Present [phone] [address] [address] [place] [address] [address] (Home) [place] [phone] [employer] 6 6800 (Work) Advance Directives For more information, please contact: [phone] Latest Code Status on File Code Status Date Activated Date Inactivated Comments Full Code 09/10/2014 9:18 AM Care Teams Lens Inserter Relationship Specialty Start Date End Date Samantha Stauffer MD PCP - General Family Medicine 12/17/20 [facility] [address] [place] [address]
--- OUTSIDE RECORDS SUMMARY | 2022-02-02 11:46 | XMS_ITS | Encounter Summary ---
:1955 Author Organization [facility] Address [address] [place] [address]. [place] [address] Care Team Providers Name Role Phone Lurdes Thomas MD Primary Care Provider [phone] Samantha Stauffer MD Primary Care Provider [phone] Encounter Details Date Type Department Care [...] on filedocumented in this encounter Care Teams Sander Wooden Pencils Relationship Specialty Start Date End Date Lurdes Thomas MD PCP - General Internal Medicine 06/11/14 12/16/20 Samantha Stauffer MD PCP - General Family Medicine 12/17/[address] [address] documented as of this encounter
--- OUTSIDE RECORDS SUMMARY | 2022-02-02 11:46 | XMS_ITS | Encounter Summary ---
:1955 Author Organization [facility] Address [address] [place] [address]. [place] [address] Care Team Providers Name Role Phone Lurdes Thomas MD Primary Care Provider [phone] Reason for Referral Medication Prior Authorization (Routine) - Closed Specialty Diagnoses / Procedures Referred By Contact Refer red To Contact Diagnoses Hyperlipidemia with target LDL less than 130 Lurdes Thomas MD [address] [address] Referral ID Status Reason Start Date Expiration Date Visits Requ ested Visits Authorized [id number] Closed Reason for Visit Reason Onset Date Comments Refill Request 10/20/2015 PRAVASTATIN 80MG Encounter Details Date Type Department Care Team Description 10/20/2015 Refill [facility] Eag Lurdes Rojas Refill Request 1440 Demian Laughlin MD (PRAVASTATIN 80MG) [place] [address] [facility] [phone] [facility] [address] [place] [phone] (Wo rk) Social History Tobacco [...] for 6 months. Please advise pt. Maggie retail loss prevention officer Nurse Telephone Encounter - Julisa Hayden - 10/20/2015 11:53 AM CDT PRAVASTATIN 80MG Last Written Prescription Date: 04/13/2015 Last Fill Quantity: 90, # refills: 1 Last Office Visit with [facility] or [facility] prescribing provider: 02/12/2015 CHOL 219 11/25/2014 HDL 65 11/25/2014 LDL 123 11/25/2014 TRIG 153 11/25/2014 CHOLHDLRATIO 3.4 11/25/2014 documented in this encounter Plan of Treatment Not on filedocumented as of this encounter Visit Diagnoses Diagnosis Hyperlipidemia with target LDL less than 130 - Primary Other and unspecified hyperlipidemia documented in this encounter Care Teams Automatic Machines Supervisor Relationship Specialty Start Date End Date Serum, Lurdes Truman, MD PCP - General Internal Medicine 06/11/14 12/16/20 documented as of this encounter
--- OUTSIDE RECORDS SUMMARY | 2022-02-02 11:46 | XMS_ITS | Encounter Summary ---
:1955 Author Organization [facility] Address [address] [place] [address] Care Team Providers Name Role Phone Samantha Stauffer MD Primary Care Provider [phone] Reason for Referral Diagnostic Imaging XR (Routine) - Closed Specialty Diagnoses / Procedures Referred By Contact Refer red To Contact Diagnoses Esophageal dysphagia Charanjit Gray MD Procedures XR Esophagram [facility] [address] [address] [place], [place] [address] Referral ID Status Reason Start Date Expiration Date Visits Requ ested Visits Authorized [id number] Closed 12/09/2020 12/09/2021 1 1 Reason for Visit Diagnostic Imaging XR (Routine) - Closed Specialty Diagnoses / Procedures Referred By Contact Refer red To Contact Diagnoses Esophageal dysphagia Charanjit Gray MD Procedures XR Esophagram [facility] [address] [address] [place], [place] [address] Referral ID Status Reason Start Date Expiration Date Visits Requ ested Visits Authorized [id number] Closed 12/09/2020 12/09/2021 1 1 Encounter Details Date Type Department Care Team Description 12/17/2020 [facility] Charanjit Gray MD Esophageal Encounter [facility] dysphagia [address] [facility] [address] [address] [address] [place] [address] [place], [place] [phone] (Wo rk) [id number] [phone] Social History Tobacco Use Types Packs/Day Years [...] dose documented in this encounter Care Teams Cyber Security Instructor Relationship Specialty Start Date End Date Samantha Stauffer MD PCP - General Family Medicine 12/17/20 [place] [address] documented as of this encounter
--- OUTSIDE RECORDS SUMMARY | 2022-02-02 11:46 | XMS_ITS | Encounter Summary ---
:1955 Author Organization [facility] Address [address] [place] [address]. [place] [address] Care Team Providers Name Role Phone Lurdes Thomas MD Primary Care Provider [phone] Samantha Stauffer MD Primary Care Provider [phone] Encounter Details Date Type Department Care [...] on filedocumented in this encounter Care Teams Rack Room Worker Relationship Specialty Start Date End Date Lurdes Thomas MD PCP - General Internal Medicine 06/11/14 12/16/20 Samantha Stauffer MD PCP - General Family Medicine 12/17/[address] [address] documented as of this encounter
--- OUTSIDE RECORDS SUMMARY | 2022-02-02 11:46 | XMS_ITS | Clinical Summary ---
:1955 Author Organization [employer] [facility] [place] [address] Care Team Providers Name Role Phone Maria Esther Phan MD Unavailable Shannon Avery MD Unavailable Min, Charanjit Holt MD Unavailable Samantha Stauffer MD Primary Care Provider [phone] Allergies No known active allergies Medications [...] Organization Address City/State/ZIP Code Phon e Number [facility] [address] [place] [address] LABORATORY-CENTRAL 2000 LABORATORY PATH TISSUE EXAM (01/10/2022 8:45 AM CDT) Component Value Ref Test Analysis Performed At [facility] gist Range Method Time Signature Case Report Pathology Report ?Case: [id number] ? 01/11/2022 CATIE Authorizing Provider: ??Kelli Johnson [...] colitis, ENTRAL status post right LABORATORY hemicolectomy ([id number]) undergoing ileostomy takedown. Gross A) Received in [...] is identified. 1:20 PM HEALTH CDT LABORATORY-C Activities Director Scouting sections are submitted: ENTRAL 1. 2 opposing resection margins, en face LABORATORY 2. Stoma TTP 01/10/2022 Microscopic The final diagnosis is based on microscopic examination of appropriate sections of all specimens. 01/11/2022 OBDULIA WANG Description 1:20 PM HEALTH CDT LABORATORY-C ENTRAL LABORATORY Additional 01/11/2022 ALLINA Information Interpreted at [facility], Central Laboratory - [address], [place] [address] 1:20 PM HEALTH CDT LABORATORY-C ENTRAL LABORATORY Specimen Anatomical Collection Method Collection Time Receive d Time (Source) Location / / Volume Laterality Other ILEOSTOMY FLUID 01/10/2022 8:45 AM 2021 5:33 SAMPLE / Unknown CDT PM CDT Kelli Mays MD PATHOLOGY/CYTOLOGY Performing Organization Address City/State/ZIP Code Phon e Number [facility] [address] [place] [address] LABORATORY-CENTRAL 2000 LABORATORY from Last 3 Months Insurance Payer Benefit Plan / Subscriber ID Effective Dates Phone Addre ss Type Group BLUE CROSS BLUE CROSS OF [id number] 2014-Present [address] [address] [place] [address] [address] (Home) [place] [phone] Advance Directives Latest Code Status on File Code Status Date Activated Date Inactivated Comments Full Code 03/18/2021 11:01 AM 03/20/2021 5:01 PM Code Status Discussion: Not Discussed Full Code 12/31/2020 12:12 PM 01/13/2021 12:25 PM Code Status Discussion: Per Existing Order Full Code 12/25/2020 7:47 PM 12/31/2020 12:05 PM Code Status Discussion: Discussed Care Teams Brass Cutter Relationship Specialty Start Date End Date Samantha Stauffer MD PCP - General Family Practice 12/27/201999 [place] [address] Maria Esther Phan MD Neurology Neurology 12/27/[address] [place] [address] Shannon Avery MD Hospitalist Pulmonary Medicine 12/27/[address] [place] [id number] Charanjit Gray MD Hospitalist Gastroenterology 12/27/20 [address] [facility] [address] [place], [place] [address]
--- OUTSIDE RECORDS SUMMARY | 2022-02-02 11:46 | XMS_ITS | Encounter Summary ---
:1955 Author Organization [place] Address [address] [place] [address]. [place] [address] Care Team Providers Name Role Phone Lurdes Thomas MD Primary Care Provider Reason for Visit Reason Onset Date Comments Refill Request 04/15/2016 PRAVASTATIN 80MG Encounter Details Date Type Department Care Team Description 04/15/2016 Refill [facility] Eag an Lurdes Thomas Refill Request 1440 [facility] MD [place] (PRAVASTATIN 80MG) [place] [address] [facility] [phone] [address] (Wo rk) Social History Tobacco Use [...] Lurdes Thomas MD - 04/15/2016 4:37 PM DOUBLE END SEWER Mychart sent telling patient cannot continue to fill medications without visit. Lurdes Thomas MD Internal Medicine/Pediatrics LE END SEWER Telephone Encounter - Chanell Villa RN - 04/15/2016 4:30 PM DOUBLE END SEWER Made multiple attempts(LM & MC message) from October advising pt that he is due for an OV. Pt haven't responded. Routing refill request to provider for review/approval because: Hawa given x1 and patient did not follow up, please advise Chanell.Liliam body wirer Nurse LE END SEWER Telephone Encounter - Genie Mello - 04/15/2016 4:28 PM CST PRAVASTATIN 80MG Last Written Prescription Date: 10/23/2015 Last Fill Quantity: 90, # refills: 1 Last Office Visit with [facility] [place] or [facility] prescribing provider: 02/12/2015 CHOL 219 11/25/2014 HDL 65 11/25/2014 LDL 123 11/25/2014 TRIG 153 11/25/2014 CHOLHDLRATIO 3.4 11/25/2014 LE END SEWER documented in this encounter Plan of Treatment Not on filedocumented as of this encounter Visit Diagnoses Diagnosis Hyperlipidemia with target LDL less than 130 - Primary Other and unspecified hyperlipidemia documented in this encounter Care Teams Doll Wigs Hackler Relationship Specialty Start Date End Date Lurdes Thomas MD PCP - General Internal Medicine 06/11/14 12/16/20 documented as of this encounter
--- OUTSIDE RECORDS SUMMARY | 2022-02-02 11:46 | XMS_ITS | Encounter Summary ---
:1955 Author Organization [place] Address [address] [place] [address]. [place] [address] Care Team Providers Name Role Phone Samantha Stauffer MD Primary Care Provider [phone] Encounter Details Date Type Department Care [...] on filedocumented in this encounter Care Teams Multifold Operator Relationship Specialty Start Date End Date Samantha Stauffer MD PCP - General Family Medicine 12/17/[address] [address] documented as of this encounter
--- OUTSIDE RECORDS SUMMARY | 2022-02-02 11:46 | XMS_ITS | Encounter Summary ---
:1955 Author Organization [place] Address [address] [place] [address]. [place] [address] Care Team Providers Name Role Phone Lurdes Thomas MD Primary Care Provider [phone] Encounter Details Date Type Department Care Team Description 08/29/2020 Immunization [facility] Logan Nelson Vaccination [address] [address] [place] [address] [phone] Social History Tobacco Use Types Packs/Day Years [...] filedocumented in this encounter Care Teams Tip Out Worker Relationship Specialty Start Date End Date Lurdes Thomas MD PCP - General Internal Medicine 06/11/14 12/16/20 documented as of this encounter
--- NOTE | 2022-02-02 11:47 | W.PC.EDHO ---
Primary Language: Khmer Preferred Language: Orientation Status: x Alert & Oriented [] Slight Confusion [] Known Dx Dementia Transfers By: [] Assist of 1 [x] Assist of 2 [] Lift Active Medications Discontinued Medications Generic Name Dose Route Start Last Admin Trade Name Cody PRN Reason Stop Dose Admin Sodium Chloride 1,000 mls @ 6,000 mls/hr 02/02/22 10:00 02/02/22 11:27 0.9 % Sodium Chloride 1000 Ml IV 02/02/22 10:09 Infused .Q10M NATALIYA Infusion Ondansetron HCl 4 mg 02/02/22 09:52 02/02/22 10:19 Ondansetron 2 Mg/Ml Inj IVP 02/02/22 09:53 4 mg ONCE ONE Administration Description of Symptoms ED Triage Present Problem Pt recent surgery for ileostomy reversal on . Discharged from hospital on 01/17. Has been weaker since, not eating/drinking much at home. Weakness, states she can't manage pt at home. Pt was scheduled for swallow study with imaging at 10am today as well, hoping to still do that. Female History Patient Van Coma Scale Van coma scale total score 15 IV Insertion/Site Date of IV Line Insertion [ 02/02/22 Right Antecubital] Oxygen Administration Pulse Oximetry 99 Pulse Oximetry 100 Pulse Oximetry 97 Pulse Oximetry 97 Pulse Oximetry 99 Pulse Oximetry 98 Oxygen Delivery Method Room Air Cardiac Monitoring EKG Method 12 Lead
--- OUTSIDE RECORDS SUMMARY | 2022-02-02 11:47 | XMS_ITS | Encounter Summary ---
:1955 Author Organization [place] Address [address] [facility] [place] [address] Care Team Providers Name Role Phone Lurdes Thomas MD Primary Care Provider Reason for Visit (Routine) - Closed Specialty Diagnoses / Procedures Referred By Contact Refer red To Contact Radiology / Radiology. Procedures Uu Mri MR LUMBAR SPINE [address] [place] [address] Phone: Referral ID Status Reason Start Date Expiration Date Visits Requ ested Visits Authorized [id number] Closed 08/18/2015 08/17/2016 1 1 Encounter Details Date Type Department Care Team Description 08/21/2015 Hospital Encounter [facility] ParashosVianeye re low back pain [facility] Imaging Maria Esther Amaro MD [address] [place], [place] [address] [employer] [address] [place] [address] Social History Tobacco Use Types [...] Lumbago documented in this encounter Care Teams Energy And Conservation Technician Relationship Specialty Start Date End Date Lurdes Thomas MD PCP - General Internal Medicine 06/11/14 12/16/20 documented as of this encounter
--- OUTSIDE RECORDS SUMMARY | 2022-02-02 11:47 | XMS_ITS | Encounter Summary ---
:1955 Author Organization [place] Address [address] [facility] [place] [address] Care Team Providers Name Role Phone Lurdes Thomas MD Primary Care Provider [phone] Encounter Details Date Type Department Care Team Description 11/25/2014 Orders Only [facility] Eag an Hyperlipidemia LDL goal < 1440 [address] [place] [address] Social History Tobacco [...] athologist Signature Cholesterol 219 (H) <200 mg/dL [facility] Comment: LDL Cholesterol is the primary guide to therapy. The NCEP recommends further evaluation of: patients with cholesterol greater than 200 mg/dL if additional risk facto rs are present, cholesterol greater than 240 mg/dL, triglycerides greater than 1 50 mg/dL, or HDL less than 40 mg/dL. Triglycerides 153 (H) 0 - 150 mg/dL [facility] Comment: Fasting specimen HDL Cholesterol 65 >40 mg/dL [facility] LDL Cholesterol Calculated 123 0 - 129 mg/dL [facility] Comment: LDL Cholesterol is the primary guide to therapy: LDL-cholesterol goal in high risk patients is <100 mg/dL and in very high risk patients is <70 mg/dL. VLDL-Cholesterol 31 (H) 0 - 30 mg/dL [facility] Cholesterol/HDL Ratio 3.4 0.0 - 5.0 [facility] Specimen Anatomical Collection Method Collection Time Receive d Time (Source) Location / / Volume Laterality Blood specimen 11/25/2014 7:57 AM 015 7:58 (specimen) CDT AM CDT Lurdes Thomas MD LAB - BLOOD ORDERABLES Performing Organization Address City/State/ZIP Code Phon e Number [facility] [address] [place] [address] documented in this encounter Visit Diagnoses Diagnosis Hyperlipidemia LDL goal < 130 Other and unspecified hyperlipidemia documented in this encounter Care Teams Social Director Relationship Specialty Start Date End Date Lurdes Thomas MD PCP - General Internal Medicine 06/11/14 12/16/20 documented as of this encounter
--- OUTSIDE RECORDS SUMMARY | 2022-02-02 11:47 | XMS_ITS | Encounter Summary ---
:1955 Author Organization [place] Address [address] [place] [address]. [place] [address] Care Team Providers Name Role Phone Lurdes Thomas MD Primary Care Provider [phone] Reason for Visit Reason Comments Recheck Medication Encounter Details Date Type Department Care Team Description 02/12/2015 [facility] Visit [facility] Lurdes Thomas Back pain (Primary Dx); Uzair Laughlin MD Hyperlipidemia LDL goal < 130; [address] [employer] Prediabetes; [place] [address] [place] Vitamin D deficiency; [phone] 8610 [facility] Erectile d ysfunction; RD Screening for colon cancer; [place], [place] Screening for p rostate cancer [address] Social History Tobacco Use Types Packs/Day Years [...] list, Allergies, and Medical/Social/Surgical histories reviewed in [facility] andupdated as appropriate. OBJECTIVE: BP 100/62 [...] annual visit and as needed Lurdes Thomas [facility] UZAIR documented in this encounter Nursing [...] Signature PSA 0.50 0 - 4 ug/L [facility] Specimen Anatomical Collection Method Collection Time Receive d Time (Source) Location / / Volume Laterality Blood specimen 02/12/2015 10:25 5 (specimen) AM CDT 10:30 AM CDT Lurdes Thomas MD LAB - BLOOD ORDERABLES Performing Organization Address City/State/ZIP Code Phon e Number [facility] [address] [place] [phone] [facility] [address] [place] [phone], [place] [phone] Vitamin D Deficiency (02/12/2015 10:25 AM CDT) P athologist Signature Vitamin D 29 20 - 75 [facility] Deficiency ug/L [place] MEDICAL screening [facility] Comment: Season, race, dietary intake, and treatm ent affect the concentration of 60-kkuqbov-Zmjtxml D. Values may decrea se during winter [...] Organization Address City/State/ZIP Code Phon e Number [facility] [address] [place] [address] [facility] Glucose (02/12/2015 10:25 AM CDT) athologist Signature Glucose 94 70 - 99 [facility] mg/dL [facility] Specimen Anatomical Collection Method Collection Time Receive d Time (Source) Location / / Volume Laterality Blood specimen 02/12/2015 10:25 5 (specimen) AM CDT 10:30 AM CDT Lurdes Thomas MD LAB - BLOOD ORDERABLES Performing Organization Address City/State/ZIP Code Phon e Number [facility] [address] [place] [address] documented in this encounter Visit Diagnoses Diagnosis [...] prostate documented in this encounter Care Teams Fruit Thinner Relationship Specialty Start Date End Date Lurdes Thomas MD PCP - General Internal Medicine 06/11/14 12/16/20 documented as of this encounter
--- OUTSIDE RECORDS SUMMARY | 2022-02-02 11:47 | XMS_ITS | Encounter Summary ---
:1955 Author Organization [place] Address [address] [place] [address]. [place] [address] Care Team Providers Name Role Phone Lurdes Thomas MD Primary Care Provider Reason for Visit Reason Onset Date Comments Outreach 05/30/2015 [facility] call not require d FIT ordered,[facility] Encounter Details Date Type Department Care Team Description 05/30/2015 Telephone [facility] uLrdes Thomas h ([facility] call not [facility] Laughlin MD required FIT MANAGEMENT DEPT [facility] ordered,cnt) [address] [place] [address] [address] [place] [address] [address] [phone] [place], [place] [address] (Wo rk) Social History Tobacco [...] on filedocumented in this encounter Care Teams Cooker Sulfite Relationship Specialty Start Date End Date Lurdes Thomas MD PCP - General Internal Medicine 06/11/14 12/16/20 documented as of this encounter
--- OUTSIDE RECORDS SUMMARY | 2022-02-02 11:47 | XMS_ITS | Encounter Summary ---
:1955 Author Organization [place] Address [address] [place] [address]. [place] [address] Care Team Providers Name Role Phone Lurdes Thomas MD Primary Care Provider Reason for Visit Reason Onset Date Comments Panel Management 06/25/2015 Encounter Details Date Type Department Care Team Description 06/25/2015 Telephone [facility] Lurdes Oh Panel Management 14[address] [facility] [place] [address] [facility] [phone] 86[address] [place], [place] [address] (Wo rk) Social History Tobacco [...] a reminder letter regarding the FIT test. HER OPERATOR Telephone Encounter - Tamy Leahy LPN - 06/25/2015 2:13 PM CST Panel Management Review Patient has the following on his problem list: none Composite cancer screening Chart review shows that this patient is due/due soon for the following Fecal Colorectal (FIT) Summary: Patient is due/failing the following: FIT Action needed: FIT test completion Type of outreach: Sent LAVEGO message. Reminding patient to complete FIT test. Questions for provider review: None Tamy Leahy LPN Chart routed to Care Team . HER OPERATOR documented in this encounter Plan of Treatment Not on filedocumented as of this encounter Visit Diagnoses Not on filedocumented in this encounter Care Teams Ux Researcher Relationship Specialty Start Date End Date Lurdes Thomas MD PCP - General Internal Medicine 06/11/14 12/16/20 documented as of this encounter
--- OUTSIDE RECORDS SUMMARY | 2022-02-02 11:47 | XMS_ITS | Encounter Summary ---
:1955 Author Organization [place] Address [address] [place] [address]. [place] [address] Care Team Providers Name Role Phone Lurdes Thomas MD Primary Care Provider Reason for Visit Reason Onset Date Comments Refill Request 11/17/2014 PRAVASTATIN 80MG Encounter Details Date Type Department Care Team Description 11/17/2014 Refill [facility] Eag Lurdes Rojas Refill Request 1440 [facility] MD [place] (PRAVASTATIN 80MG) [place] [address] [facility] [phone] [place] [address] (Wo rk) Social History Tobacco Use [...] hyperlipidemia documented in this encounter Care Teams Respiratory Practitioner Relationship Specialty Start Date End Date Lurdes Thomas MD PCP - General Internal Medicine 06/11/14 12/16/20 documented as of this encounter
--- OUTSIDE RECORDS SUMMARY | 2022-02-02 11:47 | XMS_ITS | Encounter Summary ---
:1955 Author Organization [place] Address [address] [facility] [place] [address] Care Team Providers Name Role Phone Lurdes Thomas MD Primary Care Provider [phone] Reason for Visit Reason Comments Neurologic Problem Staple Removal Encounter Details Date Type Department Care Team Description 09/22/2014 Office Visit [facility] Rachel Cuadra, IP LITIGATION PARALEGAL REGISTRATION SCHEDULING SPECIALIST [facility] [address] [place] [address] S/P deep brain Neurosurgery Clinic Arline Peñaloza, MARISOL REGISTRATION SCHEDULING SPECIALIST [address] [place] [address] stimulator placement Vivian (Primary Dx) [address] [address] Social History Tobacco Use Types [...] swelling. [facility] [place] [address] Pager [phone] Mony Meraz 09/22/2014 10:30 AM CDT Andrew [...] imary documented in this encounter Care Teams Fire Battalion Chief Relationship Specialty Start Date End Date Lurdes Thomas MD PCP - General Internal Medicine 06/11/14 12/16/20 documented as of this encounter
--- OUTSIDE RECORDS SUMMARY | 2022-02-02 11:47 | XMS_ITS | Encounter Summary ---
:1955 Author Organization [place] Address [address] [place] [address]. [place] [address] Care Team Providers Name Role Phone Lurdes Thomas MD Primary Care Provider Reason for Visit Reason Onset Date Comments Panel Management 11/19/2014 Colonoscopy Encounter Details Date Type Department Care Team Description 11/19/2014 Telephone [facility] Lurdes Oh Panel Management 1440 [facility] MD [place] (Colonoscopy) [place] [address] [facility] [phone] [address] (Wo rk) Social History [...] Review Date of last visit with a [place] provider: Dr Thomas on 09/22/14. Date of next visit with a [place] provider: None. Problem List Patient Active Problem [...] visit for Colonoscopy/FIT. Type of outreach: Sent Nvidia message. Questions for provider review: None Please indicate office visit, lab, MTM, or nurse appt if needed. Indicate fasting or not fasting. Tamy Leahy LPN Chart routed to Care Team . documented in this encounter Plan of Treatment Not on filedocumented as of this encounter Visit Diagnoses Not on filedocumented in this encounter Care Teams Machine Tool Designer Relationship Specialty Start Date End Date Lurdes Thomas MD PCP - General Internal Medicine 06/11/14 12/16/20 documented as of this encounter
--- OUTSIDE RECORDS SUMMARY | 2022-02-02 11:47 | XMS_ITS | Encounter Summary ---
:1955 Author Organization [place] Address [address] [facility] [place] [address] Care Team Providers Name Role Phone Lurdes Thomas MD Primary Care Provider [phone] Reason for Visit Auth/Cert - Closed Specialty Diagnoses / Procedures Referred By Contact Refer red To Contact Surgery Diagnoses PARKINSONS DISEASE Sh Periop Services Procedures IMPLANT PULSE GENERATOR SUBCUTANEOUS [address] [place] [address] Phone: Referral ID Status Reason Start Date Expiration Date Visits Requ ested Visits Authorized [id number] Closed 1 1 Encounter Details Date Type Department Care Team Description 09/16/2014 Hospital Encounter [facility] Gonzalez Rowland PreOP/Phase Liliam Snider II XX RESIGNED XX [address] [place] [address] [address] [place] [address] [place] [address] [phone] Social History Tobacco Use Types Packs/Day Years [...] this encounter Discharge Summaries Arline Hutson APRN ONCOLOGY REP - 09/16/2014 8:46 AM CDT Physician Discharge Summary Patient ID: Andrew Pang [id number] 59 year old 1955 Admit date: 09/16/2014 Discharge date and time: 09/16/2014 Admitting Physician: Gonzalez Rowland MD Discharge Physician: Arline Hutson [facility] Admission Diagnoses: PARKINSONS DISEASE Discharge [...] deep brain stimulator placement vitamin D (ERGOCALCIFEROL) 22145 UNIT capsule Take 1 capsule (50,000 Units) [...] Deep Brain Stimulator Postop Instructions Dr. Rowland [phone] 1. Ok to shower after 3 days. [...] have aDBS and the contact number for [employer] should be provided. ?? Some procedures require that the DBS system is turned off. [employer] can also instruct and guide regarding this. ?? 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 Source Note - Lurdes Thomas MD - 08/25/2014 12:38 PM CDT [address] [address] Dept: [phone] PRE-OP EVALUATION: Today's date: 08/25/2014 Andrew Pang (: 1955) presents for pre-operative evaluation assessment as requested by . He requires evaluation and anesthesia risk assessment prior to undergoing surgery/procedurefor treatment of Parkinson's . Proposed procedure: Deep brain stimulator implant Date of Surgery/ Procedure: 09/09& Time of Surgery/ Procedure: 529 Hospital/Surgical Facility: [facility] Primary Physician: Lurdes Thomas Type of [...] cardiovascular risks for perioperative complications such as ([place], PE, VFib and 3?? AV Block): No [...] evaluation report is provided to requesting physician. [facility] Preop Guidelines documented in this encounter Nursing [...] bilateral lead extensions SURGEON: Gonzalez Rowland MD Ug Designer: Arline Hutson NP PROCEDURE: The patient was [...] Provider: Pavel Miner) Routine, 2 g, Intravenous, PRE-OP/PRE-WV OCEDURE, Starting on Mon09/16/14 at 0638, For [...] Post-procedure documented in this encounter Care Teams Hand Patcher Relationship Specialty Start Date End Date Lurdes Thomas MD PCP - General Internal Medicine 06/11/14 12/16/20 documented as of this encounter
--- OUTSIDE RECORDS SUMMARY | 2022-02-02 11:47 | XMS_ITS | Encounter Summary ---
:1955 Author Organization [place] Address [address] [facility] [place] [address] Care Team Providers Name Role Phone Lurdes Thomas MD Primary Care Provider [phone] Encounter Details Date Type Department Care Team Description 09/11/[address] [facility] Nurse Eladia Muñoz, RN [facility] [address] [place] [address] Social History Tobacco Use Types Packs/Day [...] bandages are is very itchy. Will page radio television announcer for [facility] page flexo press operator for spine and brain clinic to have radio television announcer Dr. Rowland call Natasha @ [phone]. Did not complete infection screen for ebola. [...] as expected or comes out ? NO vendor analyst (pump, infusion catheter) damaged or not functioning [...] least 15 seconds or use a hand razor grinder before and after touching the wound area. [...] on filedocumented in this encounter Care Teams Trouble Shooter Relationship Specialty Start Date End Date Lurdes Thomas MD PCP - General Internal Medicine 06/11/14 12/16/20 documented as of this encounter
--- OUTSIDE RECORDS SUMMARY | 2022-02-02 11:47 | XMS_ITS | Encounter Summary ---
:1955 Author Organization [place] Address [address] [facility] [place] [address] Care Team Providers Name Role Phone Lurdes Thomas MD Primary Care Provider [phone] Reason for Visit (Routine) - Closed Specialty Diagnoses / Procedures Referred By Contact Refer red To Contact Radiology / Radiology. Diagnoses R#NA, Written Order, SB Doris, Not a read and call. Sh Ct Scan Procedures CT LUMBAR SPINE [address] [place] [address] Phone: Referral ID Status Reason Start Date Expiration Date Visits Requ ested Visits Authorized [id number] Closed 08/31/2015 08/30/2016 1 1 Encounter Details Date Type Department Care Team Description 08/31/2015 Hospital Encounter [facility] Parashos, So re low back pain [facility] Maria Esther Amaro MD [address] [employer] [address] [place] [id number] Social History Tobacco Use Types Packs/Day Years [...] Lumbago documented in this encounter Care Teams Human Service Coordinator Relationship Specialty Start Date End Date Lurdes Thomas MD PCP - General Internal Medicine 06/11/14 12/16/20 documented as of this encounter
--- OUTSIDE RECORDS SUMMARY | 2022-02-02 11:47 | XMS_ITS | Encounter Summary ---
:1955 Author Organization [place] Address [address] [facility] [place] [address] Care Team Providers Name Role Phone Lurdes Thomas MD Primary Care Provider [phone] Reason for Visit Auth/Cert - Closed Specialty Diagnoses / Procedures Referred By Contact Refer red To Contact Surgery Diagnoses PARKINSONS DISEASE Sh Periop Services Procedures IMPLANT PULSE GENERATOR SUBCUTANEOUS [address] [place] [address] Phone: Referral ID Status Reason Start Date Expiration Date Visits Requ ested Visits Authorized [id number] Closed 1 1 Encounter Details Date Type Department Care Team Description 09/16/2014 Surgery [facility] Gonzalez Rowland BILATERAL LEAD EXTENSION Southhelena Snider MD AND RIGHT INFRACLAVICULAR Services XX RESIGNED XX PULSE GENERATOR PLACEMENT [address] ([employer]) [address] [place] [address] [place] [address] [phone] Surgery Details Date/Time Status Location OR Service [...] MD Primary Neurosurgery 1 Arline Peñaloza APRN MOSS GATHERER Media Law Faculty Member Autho rization 1 documented in this encounter [...] Physician Discharge Summary Patient ID: Andrew Pang [id number] 59 year old 1955 Admit date: 09/16/2014 Discharge date and time: 09/16/2014 Admitting Physician: Gonzalez Rowland MD Discharge Physician: Arline Hutson [facility] Admission Diagnoses: PARKINSONS DISEASE Discharge Diagnoses: [...] deep brain stimulator placement vitamin D (ERGOCALCIFEROL) 45630 UNIT capsule Take 1 capsule (50,000 Units) [...] Deep Brain Stimulator Postop Instructions Dr. Rowland [phone] 1. Ok to shower after 3 days. [...] ?? 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 Source Note - Lurdes Thomas MD - 08/25/2014 12:38 PM CDT [address] [address] Dept: [phone] PRE-OP EVALUATION: Today's date: 08/25/2014 Andrew Pang [...] and plans deep brain stimulator placement. 1. NA: pt with increase AN and SOB over [...] cardiovascular risks for perioperative complications such as (IA, PE, VFib and 3?? AV Block): No [...] evaluation report is provided to requesting physician. [place] Preop Guidelines documented in this encounter Nursing [...] bilateral lead extensions SURGEON: Gonzalez Rowland MD Media Law Faculty Member: Arline Hutson NP PROCEDURE: The patient was [...] Provider: Pavel Miner) Routine, 2 g, Intravenous, PRE-OP/PRE-MT OCEDURE, Starting on Mon09/16/14 at 0638, For [...] Post-procedure documented in this encounter Care Teams Electrician Research Relationship Specialty Start Date End Date Lurdes Thomas MD PCP - General Internal Medicine 06/11/14 12/16/20 documented as of this encounter
--- OUTSIDE RECORDS SUMMARY | 2022-02-02 11:47 | XMS_ITS | Encounter Summary ---
:1955 Author Organization [place] Address [address] [place] [address] Care Team Providers Name Role Phone Lurdes Thomas MD Primary Care Provider [phone] Reason for Visit Auth/Cert - Closed Specialty Diagnoses / Procedures Referred By Contact Refer red To Contact Surgery Diagnoses PARKINSONS DISEASE Sh Periop Services Procedures IMPLANT PULSE GENERATOR SUBCUTANEOUS [address] [place] [address] Phone: Referral ID Status Reason Start Date Expiration Date Visits Requ ested Visits Authorized [id number] Closed 1 1 Encounter Details Date Type Department Care Team Description 09/16/2014 Anesthesia Event [facility] Jacquie Coughlin ANESTHESIOLOGY [address] [id number] Simone PeriOP Ser Rogelio Gee MD [facility] ANESTHESIOLOGISTS [address] [id number] [address], [address] [place] [...] EXTENSION AND RIGHT INFRACLAVICULAR PULSE GENERATOR PLACEMENT ([employer]) Anesthesia type: General, ETT Post Op Diagnosis: [...] Arline Hutson APRN CNP vitamin D (ERGOCALCIFEROL) 94226 UNIT capsule Take 1 capsule (50,000 Units) [...] 1900 04/12/10 Lurdes Thomas MD No current [facility] facility-administered [facility] on file. No [...] results for input(s): INR in the last 24924 hours. Invalid input(s): APTT RECENT LABS: ECG: [...] benefits and alternatives discussed with: patient or enrollment representative. . History & Physical Review History [...] Intra-op documented in this encounter Care Teams Cold Mill Supervisor Relationship Specialty Start Date End Date Lurdes Thomas MD PCP - General Internal Medicine 06/11/14 12/16/20 documented as of this encounter
--- OUTSIDE RECORDS SUMMARY | 2022-02-02 11:47 | XMS_ITS | Encounter Summary ---
:1955 Author Organization [place] Address [address] [facility] [place] [address] Care Team Providers Name Role Phone Lurdes Thomas MD Primary Care Provider [phone] Encounter Details Date Type Department Care Team Description 10/09/2014 Medical Correspondence [facility] Scan, LETTER FROM [facility], Non-Provider NIECY COOPER, Health Info Elicia CONTRERAS MD-09/[address] [facility] [facility] [place] [address] Social History Tobacco Use Types Packs/Day [...] on filedocumented in this encounter Care Teams Import Clerk Relationship Specialty Start Date End Date Lurdes Thomas MD PCP - General Internal Medicine 06/11/14 12/16/20 documented as of this encounter
--- OUTSIDE RECORDS SUMMARY | 2022-02-02 11:47 | XMS_ITS | Encounter Summary ---
:1955 Author Organization [place] Address [address] [facility] [place] [address] Care Team Providers Name Role Phone Lurdes Thomas MD Primary Care Provider [phone] Encounter Details Date Type Department Care Team Description 09/18/2014 Documentation Only [facility] Gonzalez Rowland Neurosurgery Clinic MD See Snider XX RESIGNED XX [address] [facility] out [address] [facility] [address] [place] [address] [place] [address] [phone] Social History Tobacco Use Types Packs/Day Years [...] is because it would provide him with yqjquh-zhz-jszzl control of his motor symptoms, which would [...] on filedocumented in this encounter Care Teams Postal Worker Relationship Specialty Start Date End Date Lurdes Thomas MD PCP - General Internal Medicine 06/11/14 12/16/20 documented as of this encounter
--- OUTSIDE RECORDS SUMMARY | 2022-02-02 11:47 | XMS_ITS | Encounter Summary ---
:1955 Author Organization [place] Address [address] [place] [address]. [place] [address] Care Team Providers Name Role Phone Lurdes Thomas MD Primary Care Provider [phone] Reason for Visit Reason Onset Date Comments Prior Auth - Medication 02/12/2015 viagra Encounter Details Date Type Department Care Team Description 02/12/2015 Telephone [facility] Lurdes Oh Prior Auth - Medication [address] [facility] MD [place] (viagra ) [place] [address] [facility] [phone] [place] [id number] (Wo rk) Social History Tobacco Use [...] on filedocumented in this encounter Care Teams Lens Grinding Machine Operator Relationship Specialty Start Date End Date Lurdes Thomas MD PCP - General Internal Medicine 06/11/14 12/16/20 documented as of this encounter
--- OUTSIDE RECORDS SUMMARY | 2022-02-02 11:48 | XMS_ITS | Encounter Summary ---
:1955 Author Organization [place] Address [address] [place] [address]. [place] [address] Care Team Providers Name Role Phone Lurdes Thomas MD Primary Care Provider [phone] Reason for Visit (Routine) - Closed Specialty Diagnoses / Procedures Referred By Contact Refer red To Contact Cardiology Diagnoses 06/16-reminder ltr sent Rh Echo cc Procedures ECH COMPLETE [address] [facility] [address] [place], [place] [address] Phone: Fax: Referral ID Status Reason Start Date Expiration Date Visits Requ ested Visits Authorized [id number] Closed 06/17/2014 06/17/2015 1 1 Encounter Details Date Type Department Care Team Description 06/25/2014 [facility] MD [place] breath[facility] Heart Care [facility] [address] [facility] [address] [place], [place] [address] [place], [place] [phone] Social History Tobacco Use Types Packs/Day Years [...] Take 1 capsule 8 capsule 0 06/1208/01/2014 11051 UNIT (50,000 Units) by capsuleIndications: mouth every [...] (shortness o f Results for this OPTISON LABEL PINKER breath) procedure are i n the results section. documented in this encounter Results ECHO COMPLETE WITH OPTISON (06/25/2014 2:19 PM LABEL PINKER) Anatomical Region Laterality Modality Echocardiography Specimen (Source) Anatomical Collection Method Collection Time Re ceived Time Location / / Volume Laterality 06/25/2014 1:34 PM LABEL PINKER Narrative 06/25/2014 4:24 PM LABEL PINKER Interpretation Summary Left ventricular systolic function is [...] to 2mL with Given 06/25/2014 2:12 PM LABEL PINKER 2 mLs saline (OPTISON) diluted injection 2 mL 2 mL, Intravenous, ONCE, On Mon06/25/14 at 1415, For 1 dose, 3mL Optison / 6mL Saline solution documented in this encounter Care Teams Director Geothermal Operations Relationship Specialty Start Date End Date Lurdes Thomas MD PCP - General Internal Medicine 06/11/14 12/16/20 documented as of this encounter
--- OUTSIDE RECORDS SUMMARY | 2022-02-02 11:48 | XMS_ITS | Encounter Summary ---
:1955 Author Organization [place] Address [address] [facility] [place] [address] Care Team Providers Name Role Phone Lurdes Thomas MD Primary Care Provider [phone] Reason for Visit (Routine) - Closed Specialty Diagnoses / Procedures Referred By Contact Refer red To Contact Radiology / Radiology. Diagnoses R#NA, BC, Epic Order Sh Ct Scan Procedures CT [place] [address] [place] [address] Phone: Referral ID Status Reason Start Date Expiration Date Visits Requ ested Visits Authorized [id number] Closed 08/11/2014 08/11/2015 1 1 Encounter Details Date Type Department Care Team Description 09/08/[address] [facility] Rachel Cuadra rkinson's disease [facility] Imaging Lm, ADOPTION WORKER CRUCIBLE FURNACE TENDER (H) [address] [place] [address] ORTHOPEDICS [phone] [place] [address] Social History Tobacco Use Types Packs/Day Years [...] Take 1 capsule 4 capsule 2 08/2602/12/2015 12756 UNIT (50,000 Units) by capsuleIndications: Vitamin mouth [...] abnormality. FAMILIA GUILLERMO MD Rachel Cuadra APRN CRUCIBLE FURNACE TENDER IMG CT ORDERABLES documented in this encounter Visit Diagnoses Diagnosis Parkinson's disease (H) Paralysis agitans documented in this encounter Care Teams Mold Sander Relationship Specialty Start Date End Date Lurdes Thomas MD PCP - General Internal Medicine 06/11/14 12/16/20 documented as of this encounter
--- OUTSIDE RECORDS SUMMARY | 2022-02-02 11:48 | XMS_ITS | Encounter Summary ---
:1955 Author Organization [place] Address [address] [facility] [place] [address] Care Team Providers Name Role Phone Lurdes Thomas MD Primary Care Provider Reason for Visit (Routine) - Closed Specialty Diagnoses / Procedures Referred By Contact Refer red To Contact Radiology / Radiology. Diagnoses R#NA, BC, Epic Order Sh Mri Procedures MR BRAIN WWO [address] [place] [address] Phone: Referral ID Status Reason Start Date Expiration Date Visits Requ ested Visits Authorized [id number] Closed 07/28/2014 07/28/2015 1 1 Encounter Details Date Type Department Care Team Description 08/26/2014 Hospital Encounter [facility] Rachel Cuadra rkinson's disease [facility] Imaging Lm, INTERNET WEBMASTER UNATTENDED GROUND SENSOR SPECIALIST (H) [address] [place] [address] ORTHOPEDICS [phone] [place], [place] [address] Social History Tobacco Use Types Packs/Day Years [...] Take 1 capsule 4 capsule 2 08/2602/12/2015 73382 UNIT (50,000 Units) by capsuleIndications: Vitamin mouth [...] planning purposes. COMPARISON: Diagnostic brain MRI from [facility] 05/26/2014. FINDINGS: The ventricles are normal in s ize. There is no midline shift. There are no extra-axial fluid co llections. There is no evidence for intracranial hemorrhage. Procedure Note eBtty Cloud MD - 08/26/2014Forma tting of this note might be different from the original. MR BRAIN WITH AND WITHOUT CONTRAST August 26, 2014 2:30 PM HISTORY: Paralysis agitans. TECHNIQUE: Thin section axial pre-and po stcontrast (20 mL Gadavist) MRI images of the brain were acquired fo r treatment planning purposes. COMPARISON: Diagnostic brain MRI from [facility] 05/26/2014. FINDINGS: The ventricles are normal in s ize. There is no midline shift. There are no extra-axial fluid co llections. There is no evidence for intracranial hemorrhage. IMPRESSION IMPRESSION: Treatment planning brain MRI images with no evidence for acute intracranial pathology. EBTTY CLOUD MD Rachel Cuadra INTERNET WEBMASTER UNATTENDED GROUND SENSOR SPECIALIST IMG MRI ORDERABLES documented in this encounter [...] MRI. documented in this encounter Care Teams Cyber Security Analyst Relationship Specialty Start Date End Date Lurdes Thomas MD PCP - General Internal Medicine 06/11/14 12/16/20 documented as of this encounter
--- OUTSIDE RECORDS SUMMARY | 2022-02-02 11:48 | XMS_ITS | Encounter Summary ---
:1955 Author Organization [place] Address [address] [place] [address]. [place] [address] Care Team Providers Name Role Phone Lurdes Thomas MD Primary Care Provider [phone] Reason for Visit (Routine) - Closed Specialty Diagnoses / Procedures Referred By Contact Refer red To Contact Cardiology Procedures [facility] Electrocardiology EKG STRESS NM LEXISCAN [address] [place], [place] [address] Phone: Referral ID Status Reason Start Date Expiration Date Visits Requ ested Visits Authorized [id number] Closed 06/19/2014 06/19/2015 1 1 Encounter Details Date Type Department Care Team Description 06/25/2014 Hospital Encounter [facility] Lurdes Thomas SOB (shortness of Electrocardiolgy MD [place] breath) [address] [facility] [address] [place] [address] [place] [address] Social History Tobacco Use Types [...] Take 1 capsule 8 capsule 0 06/1208/01/2014 32962 UNIT (50,000 Units) by capsuleIndications: mouth every [...] adverse reactions to catarino injection. Rachel Segura E PRODUCER documented in this encounter Plan of Treatment Not on filedocumented as of this encounter Procedures Procedure Name Priority Date/Time Associated Diagnosis Comme nts NM MPI WITH Routine 06/25/2014 1:06 PM SOB (shortness of Resu lts for this LEXISCAN STAGE PRODUCER breath) procedure are i n the results section. documented in this encounter Results NM Lexiscan stress test (06/25/2014 1:06 PM STAGE PRODUCER) Anatomical Region Laterality Modality Chest Nuclear Medicine Specimen (Source) Anatomical Location Collection Method / Collectio n Time Received Time / Laterality Volume Narrative 06/26/2014 10:06 AM STAGE PRODUCER GATED MYOCARDIAL PERFUSION SCINTIGRAPHY WITH INTRAVENOUS PHARMACOLOGIC [...] (LEXISCAN) 0.4 MG/5ML Given 06/25/2014 11:30 AM STAGE PRODUCER injection Starting on Mon06/25/14 at 1148, For 1 dose, RACHEL SEGURA: cabinet override documented in this encounter Care Teams Cable Tool Operator Relationship Specialty Start Date End Date Lurdes Thomas MD PCP - General Internal Medicine 06/11/14 12/16/20 documented as of this encounter
--- OUTSIDE RECORDS SUMMARY | 2022-02-02 11:48 | XMS_ITS | Encounter Summary ---
:1955 Author Organization [place] Address [address] [place] [address]. [place] [address] Care Team Providers Name Role Phone Lurdes Thomas MD Primary Care Provider [phone] Reason for Visit Reason Comments Pre-Op Exam Encounter Details Date Type Department Care Team Description 08/25/2014 Office Visit [facility] Lurdes Thomasop gen eral physical exam (Primary Dx); Uzair Laughlin MD Parkinson disease (H); [address] [employer] Bilateral leg edema; [place] [address] [place] Leg swelling; [phone] [address] [facility] Vitamin D deficiency disease [address] [place], [place] [address] Social History Tobacco Use [...] Thomas MD - 08/25/2014 12:38 PM CDT [address] [address] Dept: [phone] PRE-OP EVALUATION: Today's date: 08/25/2014 Andrew Pang [...] D 25 (L) 30 - 75 [facility] ug/L [place] [facility] Comment: Season, race, dietary intake, and treatm ent affect the concentration of 39-zdydyxu-Wygaydd D. Values may decrea se during winter [...] Code Phon e Number [facility] [address] [place] [address] [facility] (ABNORMAL) Basic metabolic panel (08/25/2014 1:08 PM CDT) Analysis Performed At [facility] logist Time Signature Sodium 137 133 - 144 [place] mmol/L [facility] Potassium 3.5 3.4 - 5.3 [place] mmol/L [facility] Chloride 100 94 - 109 [place] mmol/L [facility] Carbon Dioxide 28 20 - 32 [place] mmol/L [facility] Anion Gap 9 3 - 14 [place] mmol/L [facility] Glucose 132 (H) 70 - 99 [place] mg/dL [facility] Comment: Effective 12/18/2013, the reference range for this assay has changed to reflect new instrumentation/methodology. Urea Nitrogen 18 7 - 30 mg/dL [facility] Comment: Effective 12/18/2013, the reference range for this assay has changed to reflect new instrumentation/methodology. Creatinine 0.77 0.66 - 1.25 [facility] mg/dL [facility] GFR Estimate >90 >60 mL/min/1.7m2 [facility] Non GFR Calc [facility] GFR Estimate If Black >90 >60 mL/min/1.7m2 [facility] GFR Calc [facility] Calcium 9.3 8.5 - 10.1 mg/dL [facility] Comment: Effective 12/18/2013, the reference range for this assay has changed to reflect new instrumentation/methodology. Specimen Anatomical Collection Method Collection Time Receive d Time (Source) Location / / Volume Laterality Blood specimen 08/25/2014 1:08 PM 015 1:09 (specimen) CDT PM CDT Lurdes Thomas MD LAB - BLOOD ORDERABLES Performing Organization Address City/State/ZIP Code Phon e Number [facility] [address] [place] [address] documented in this encounter Visit Diagnoses Diagnosis Preop general physical exam - Primary Other specified pre-operative examinatio n Parkinson disease (H) Paralysis agitans Bilateral leg edema Edema Leg swelling Swelling of limb Vitamin D deficiency disease Unspecified vitamin D deficiency documented in this encounter Care Teams Glass Production Machine Operator Relationship Specialty Start Date End Date Lurdes Thomas MD PCP - General Internal Medicine 06/11/14 12/16/20 documented as of this encounter
--- OUTSIDE RECORDS SUMMARY | 2022-02-02 11:48 | XMS_ITS | Encounter Summary ---
:1955 Author Organization [place] Address [address] [facility] [place] [address] Care Team Providers Name Role Phone Lurdes Thomas MD Primary Care Provider [phone] Reason for Visit (Routine) - Closed Specialty Diagnoses / Procedures Referred By Contact Refer red To Contact Radiology / Radiology. Procedures Nuclear Medicine NM MPI WITH LEXISCAN [address] [place] [address] Phone: Fax: Referral ID Status Reason Start Date Expiration Date Visits Requ ested Visits Authorized [id number] Closed 06/20/2014 12/17/2014 1 1 Encounter Details Date Type Department Care Team Description 06/25/2014 Hospital Encounter [facility] Lurdes Thomas MD [address] [facility] [address] [address] [facility] [phone] [place], [place] [address] (Wo rk) Social History [...] Take 1 capsule 8 capsule 0 06/1208/01/2014 18852 UNIT (50,000 Units) by capsuleIndications: mouth every [...] (shortness of Resu lts for this LEXISCAN FINANCIAL SERVICES SALES REPRESENTATIVE breath) procedure are i n the results section. documented in this encounter Visit Diagnoses Not on filedocumented in this encounter Administered Medications Inactive Administered Medications - up to 3 most recent administrations Medication Order MAR Action Action Date Dose Rate Site technetium Tc 99m tetrofosmin 2UD Given 06/25/2014 1:04 PM FINANCIAL SERVICES SALES REPRESENTATIVE 3 0 mCi study (MYOVIEW) radioisotope injection 3-42 mCi 3-42 mCi, Intravenous, EVERY 2 HOURS, First dose on Mon06/25/14 at 1015, For 2 doses, Radioisotope, supplied by and administered by Nuclear Medicine. *HW* Given 06/25/2014 10:09 AM FINANCIAL SERVICES SALES REPRESENTATIVE 10.4 mCi documented in this encounter Care Teams Perioperative Tech Relationship Specialty Start Date End Date Lurdes Thomas MD PCP - General Internal Medicine 06/11/14 12/16/20 documented as of this encounter
--- OUTSIDE RECORDS SUMMARY | 2022-02-02 11:48 | XMS_ITS | Encounter Summary ---
:1955 Author Organization [place] Address [address] [place] [address]. [place] [address] Care Team Providers Name Role Phone Lurdes Thomas MD Primary Care Provider [phone] Reason for Visit Reason Onset Date Comments Other 07/21/2014 Pt. needs letter Encounter Details Date Type Department Care Team Description 07/21/2014 Telephone [facility] Gonzalez Rowland Other (Pt . needs Neurosurgery Clinic MD Tylor letter) See XX RESIGNED XX [address] [place] [address] [place] [address] [place] [address] [place] [address] [phone] Social History Tobacco Use Types Packs/Day Years [...] To discuss a letter he needs? Thanks OL BASED THERAPIST documented in this encounter Plan of Treatment Not on filedocumented as of this encounter Visit Diagnoses Not on filedocumented in this encounter Care Teams Copy Preparer Relationship Specialty Start Date End Date Lurdes Thomas MD PCP - General Internal Medicine 06/11/14 12/16/20 documented as of this encounter
--- OUTSIDE RECORDS SUMMARY | 2022-02-02 11:48 | XMS_ITS | Encounter Summary ---
:1955 Author Organization [place] Address [address] [place] [address]. [place] [address] Care Team Providers Name Role Phone Lurdes Thomas MD Primary Care Provider [phone] Reason for Visit Reason Comments Pre-Op Exam Encounter Details Date Type Department Care Team Description 08/11/2014 Office Visit [facility] Lurdes Thomasop gen eral physical exam (Primary Dx); Uzair Laughlin MD Parkinson disease (H); [address] [employer] Leg swelling; [place] [address] [place] Acute bronchitis [phone] [place], [place] [address] Social History Tobacco Use Types Packs/Day [...] Thomas MD - 08/11/2014 2:01 PM CDT [address] [address] Dept: [phone] PRE-OP EVALUATION: Today's date: 08/11/2014 Andrew Pang [...] evaluation report is provided to requesting physician. [place] Preop Guidelines documented in this encounter Nursing Notes aTmy Leahy LPN - 08/11/2014 6:47 PM CDT [...] bronchitis documented in this encounter Care Teams Legal Activity Adjudicator Relationship Specialty Start Date End Date Lurdes Thomas MD PCP - General Internal Medicine 06/11/14 12/16/20 documented as of this encounter
--- OUTSIDE RECORDS SUMMARY | 2022-02-02 11:48 | XMS_ITS | Encounter Summary ---
:1955 Author Organization [place] Address [address] [place] [address]. [place] [address] Care Team Providers Name Role Phone Lurdes Thomas MD Primary Care Provider [phone] Reason for Referral Consultation - Closed Specialty Diagnoses / Procedures Referred By Contact Refer red To Contact Diagnoses Dyspnea on exertion Lurdes Thomas [facility] [address] [place], [place] [address] [facility] [address] [place] [address] Referral ID Status Reason Start Date Expiration Date Visits Requ ested Visits Authorized [id number] Closed 07/10/2014 01/06/2015 1 1 COLLISION REPAIR INSTRUCTOR Encounter Details Date Type Department Care Team Description 07/10/2014 Orders Only [facility] Eag an Lurdes Thomas Dyspnea on exertion 1440 Demian Laughlin MD (Primary Dx) [place] [address] [facility] [phone] [place] [address] [place] [address] Social History Tobacco Use Types [...] Priority Associated Diagnoses Order S [facility] PULMONARY MEDICINE Referral Routine Dyspnea on exertion Or dered: 07/10/2014 REFERRAL documented as of this encounter Visit Diagnoses Diagnosis Dyspnea on exertion - Primary Other dyspnea and respiratory abnormalit y documented in this encounter Care Teams In Home Caregiver Relationship Specialty Start Date End Date Lurdes Thomas MD PCP - General Internal Medicine 06/11/14 12/16/20 documented as of this encounter
--- OUTSIDE RECORDS SUMMARY | 2022-02-02 11:48 | XMS_ITS | Encounter Summary ---
:1955 Author Organization [place] Address [address] [place] [address]. [place] [address] Care Team Providers Name Role Phone Lurdes Thomas MD Primary Care Provider [phone] Reason for Visit Reason Onset Date Comments Refill Request 08/20/2014 PRAVASTATIN 80MG Encounter Details Date Type Department Care Team Description 08/20/2014 Refill [facility] Lurdes Rojas Refill Request 1440 [facility] MD [place] (PRAVASTATIN 80MG) [place] [address] [facility] [phone] [place] [address] (Wo rk) Social History Tobacco Use [...] hyperlipidemia documented in this encounter Care Teams Sole Buffer Relationship Specialty Start Date End Date Lurdes Thomas MD PCP - General Internal Medicine 06/11/14 12/16/20 documented as of this encounter
--- OUTSIDE RECORDS SUMMARY | 2022-02-02 11:48 | XMS_ITS | Encounter Summary ---
:1955 Author Organization [place] Address [address] [facility] [place] [address] Care Team Providers Name Role Phone Lurdes Thomas MD Primary Care Provider [phone] Reason for Visit Auth/Cert - Closed Specialty Diagnoses / Procedures Referred By Contact Refer red To Contact Surgery Diagnoses PARKINSONS DISEASE Sh Periop Services Procedures OPTICAL TRACKING SYSTEM INSERTION DEEP BRAIN STIMULATION BILATERAL [address] [place] [address] Phone: Referral ID Status Reason Start Date Expiration Date Visits Requ ested Visits Authorized [id number] Closed 1 1 Encounter Details Date Type Department Care Team Description 09/09/2014 Surgery [facility] Gonzalez Rowland BILATERAL SUBTHALMIC [place] PeriOP MD [place] NUCLEUS DEEP BRAIN Services XX RESIGNED XX STIMULATOR [address] [place] [address] [place] [address] [phone] Surgery Details Date/Time Status Location OR Service [...] Neurosurgery 1 Arline Peñaloza APRN CNP Assisting Solvent Plant Operator Shereen pretty 1 documented in this encounter [...] APRN CNP - 09/10/2014 9:19 AM CDT [facility] Discharge Summary Neurosurgery Date of Admission: [...] up with further consultation recommendations. Rachel Cuadra [facility] [address] [place] [address] Pager [phone] Significant Results and Procedures NONE Pending Results Unresulted Labs Ordered in the Past 30 Days of this Admission No orders found for last 60 day(s). Code Status Full Code Primary Care Physician Lurdes Laughlin [facility] Physical Exam Temp: 97.9 ??F (36.6 [...] other recreational vehicles Call my office at [phone] for increasing redness, swelling or pus draining [...] deep brain stimulator placement vitamin D (ERGOCALCIFEROL) 39278 UNIT capsule Take 1 capsule (50,000 Units) [...] other recreational vehicles Call my office at [phone] for increasing redness, swelling or pus draining [...] Take 1 capsule 4 capsule 2 08/2602/12/2015 17166 UNIT (50,000 Units) by capsuleIndications: Vitamin mouth [...] MD - 08/25/2014 12:[address] PM [address] [place] [address] Dept: [phone] PRE-OP EVALUATION: Today's date: 08/25/2014 Andrew Pang [...] cardiovascular risks for perioperative complications such as (VA, PE, VFib and 3?? AV Block): No [...] care (reference Craniotomy/Craniectomy/Cranioplasty (Adult) CPG). Outcome: Improving [phone] Neuro: slight tremors hands, would freeze at [...] brain stimulator placement SURGEON: Gonzalez Rowland MD Solvent Plant Operator: Arline Hutson NP 59 yo man with [...] eda holes were made with the 14mm online facilitator drill over the markedbony entry points. The [...] microelectrode were inserted at 15mm above target, mfvildip0mg and impedences confirmed <400kohms. I began advancing [...] effects. The decisionwas made to insert a iwitronic 3389 macroelectrode with the distal 0 contact [...] The decision was made to insert a iwitronic 3389 macroelectrode with the distal 0 contact [...] 8:20 CDT AM CDT Gonzalez Rowland MD [facility] Performing Organization Address City/State/ZIP Code Phon [...] stimulator leads. LOGAN GUILLERMO MD Arline Peñaloza TRANSPORT MEDIC CERTIFIED HYPERBARIC TECHNOLOGIST IMG CT ORDERABLES Hemoglobin (09/09/2014 6:10 AM CDT) athologist Signature Hemoglobin 14.8 13.3 - 17.7 [place] g/dL [facility] Specimen Anatomical Collection Method Collection Time Receive d Time (Source) Location / / Volume Laterality Blood specimen 09/09/2014 6:10 AM 015 6:13 (specimen) CDT AM CDT Jac[facility]ie [facility] LAB - BLOOD ORDERABLES Performing Organization Address City/State/ZIP Code Phon e Number M [facility] [address] [place] [address] [place] [address] [place] [address] Potassium (09/09/2014 6:10 AM CDT) athologist Signature Potassium 3.4 3.4 - 5.3 [place] mmol/L [facility] Specimen Anatomical Collection Method Collection Time Receive d Time (Source) Location / / Volume Laterality Blood specimen 09/09/2014 6:10 AM 015 6:13 (specimen) CDT AM CDT [facility] LAB - BLOOD ORDERABLES Performing Organization Address City/State/ZIP Code Phon e Number M [facility] [address] [place] [address] [phone] [place] [address] [place] [address] documented in this encounter Visit Diagnoses Not [...] Site /Surgical Site 09/09/14 at 0858, Intra-procedure fppizhmo-oingchmcjq-ptxdhwsus-calcium Given 09/09/2014 4 mLs Operative (TISSEEL) topical [...] 09/10/2014 amantadine (SYMMETREL) capsule 100 mg (CANCELED) 1036 (Given - Provider: Nasim Haddad RN)2006 (Given - Provider: Nomi Manuel RN - Comment: Pt states he has not taken his two doses today.) 1828 (Given - Provider: Nomi Manuel RN)0917 (Given - Provider: Ivelisse Mccormcak RN) 100 mg, Oral, 2 TIMES DAILY, [...] RN)0754 (Given - Provider: Millicent Enciso APRN DATE PULLER)0954 (Given - Provider: Millicent Enciso APRN CRNA) Routine, 2 g, Intravenous, PRE-OP/PRE-KS OCEDURE, Starting on Mon09/09/14 at 0543, For [...] Nomi Manuel RN) 0526 (Given - Provider: oNmi Manuel RN)1215 (Canceled Entry - Provider: Orders Generic Provider - Comment: Automatically canceled at discontinue of medication order) 3 mL, Intravenous, EVERY 8 HOURS, First dose on Mon09/09/14 at 1215, to lock peripheral IV dormant line. Also Ordered Q1H PRN, Post-procedure Continuous Medication Order 09/08/2014 09/09/2014 09/10/2014 0.9% sodium chloride infusion (CANCELED) 1235 (New Bag - Provider: Nasim Hadadd RN)1628 (Rate/Dose Verify - Provider: Chloé Davalos RN) 0751 (Rate/Dose Verify - Provider: Ivelisse Mccormack, JAMAL)1100 (Stopped - Provider: Ivelisse Mccormack, JAMAL) at 75 mL/hr, Intravenous, CONTINUOUS, Un til tolerating PO, Post-procedure, Starting Mon09/09/14 at 1215, Until Mon09/10/14 at 1701 lactated ringers infusion (CANCELED) 062 5 (New Bag - Provider: Lori Comer, RN)0726 (Anesthesia Volume Adjustment - Provider: Millicent Enciso APRN DATE PULLER)1020 (New Bag - Provider: Millicent Enciso APRN DATE PULLER)1059 (Anesthesia Volume Adjustment - Provider: Millicent Enciso [...] RN) 0.3-0.5 mg, Intravenous, EVERY 30 MIN KS N, Starting Mon09/09/14 at 1209, Until Mon09/10/14 [...] PRN, Starting on Mon09/09/14 at 0858, Intra-procedure kthwkdqn-wxbpqjymae-nvedihvuq-calcium (TISSEEL) topical solu tion (CANCELED) 0859 (Given - Provider: Gonzalez Rowland)0900 (Given - Provider: Gonzalez Rowland)0901 (Given - Provider: Gonzalez Rowland)0921 (Given - Provider: Gonzalez Rowland)0943 (Given - Provider: Gonzalez Rowland) PRN, Starting on Mon09/09/14 at 0859, Intra-procedure documented in this encounter Care Teams Emergency Medicine Relationship Specialty Start Date End Date Lurdes Thomas MD PCP - General Internal Medicine 06/11/14 12/16/20 documented as of this encounter
--- OUTSIDE RECORDS SUMMARY | 2022-02-02 11:48 | XMS_ITS | Encounter Summary ---
:1955 Author Organization [place] Address [address] [facility] [place] [address] Care Team Providers Name Role Phone Lurdes Thomas MD Primary Care Provider [phone] Encounter Details Date Type Department Care Team Description 09/03/2014 Medical Correspondence [facility] FELICE Hernández KATHY [facility], Non-Provider MD-ORDER -09/03/2014 Health Info [facility] [address] [facility] [address] [place] [address] Social History Tobacco Use Types [...] on filedocumented in this encounter Care Teams Water Systems Designer Relationship Specialty Start Date End Date Lurdes Thomas MD PCP - General Internal Medicine 06/11/14 12/16/20 documented as of this encounter
--- OUTSIDE RECORDS SUMMARY | 2022-02-02 11:48 | XMS_ITS | Encounter Summary ---
:1955 Author Organization [place] Address [address] [place] [address]. [place] [address] Care Team Providers Name Role Phone Lurdes Thomas MD Primary Care Provider [phone] Reason for Visit (Routine) - Closed Specialty Diagnoses / Procedures Referred By Contact Refer red To Contact Respiratory Therapy Diagnoses Hgb 15.4 drawn on 06/11/14 Rh Respiratory Ther Procedures PULMONARY FUNCTION TEST [address] [place] [address] Phone: Referral ID Status Reason Start Date Expiration Date Visits Requ ested Visits Authorized [id number] Closed 07/04/2014 07/04/2015 1 1 Encounter Details Date Type Department Care Team Description 07/08/2014 Hospital Encounter [facility] Lurdes Riosinson disease (H); Tere Laughlin MD SOB (shortness of breath) Therapy [facility] [address] [place], [place] [address] [place] [address] [phone] [place] [address] Social History Tobacco Use Types [...] Take 1 capsule 8 capsule 0 06/1208/01/2014 40861 UNIT (50,000 Units) by capsuleIndications: mouth every [...] 06/11/14. July 08, 2014.12:39 PM Shemar Hoang SUPERVISOR documented in this encounter Procedure Notes Juice Chanel MD - 07/09/2014 1:16 PM CSTAssociated Order(s): PULMONARY FUNCTION TEST Please see medical chart for graphs and statistics related to this report. REFERRING PHYSICIAN: Deidre Pang SHEET ROCK INSTALLATION HELPER: Shemar Hoang DIAGNOSIS: SOB, Parkinson's disease HEIGHT: [...] CHANEL MD MT: Name: DEIDRE PANG Account: [id number] : 1955 Procedure Date: 07/08/2014 Document: [id number] cc: Lurdes Thomas MD documented in this encounter Plan of Treatment Pending Results Name Type Priority Associated Diagnoses Date/Ti me PULMONARY FUNCTION TEST PFT Routine Parkinso n disease (H) 07/08/2014 11:58 AM MILL SUPERVISOR PROCEDURE SOB (shortness of breath) documented as of this encounter Procedures Procedure Name Priority Date/Time Associated Diagnosis Comme nts PFT GENERAL LAB 07/28/2014 1:58 PM Result s for this TESTING CDT procedure are i n the results section. PFT GENERAL LAB Routine 07/08/2014 11:58 AM Parkinson disease TESTING MILL SUPERVISOR (H) SOB (shortness of breath) PULMONARY FUNCTION 07/08/2014 12:00 AM TEST - HIM SCAN MILL SUPERVISOR documented in this encounter Results PULMONARY FUNCTION TEST (07/28/2014 1:58 PM CDT) Transcriptions Juice Chanel MD - 07/09/2014 1:16 PM CST Please see medical chart for graphs and statistics related to this report. REFERRING PHYSICIAN: Deidre Pang SHEET ROCK INSTALLATION HELPER: Shemar Hoang DIAGNOSIS: SOB, Parkinson's disease HEIGHT: [...] CHANEL MD MT: Name: DEIDRE PANG Account: [id number] : 1955 Procedure Date: 07/08/19 Document: [id number] cc: Lurdes Thomas MD Juice Chanel MD PFT ORDERABLES PULMONARY FUNCTION TEST - HIM SCAN (07/08/2014 12:00 AM MILL SUPERVISOR) Specimen (Source) Anatomical Location Collection Method / Collectio n Time Received Time / Laterality Volume 07/08/2014 Narrative This result has an attachment that is no t available. Provider Scan PFT ORDERABLES documented in this encounter Visit Diagnoses Diagnosis Parkinson disease (H) Paralysis agitans SOB (shortness of breath) Shortness of breath documented in this encounter Care Teams Machine Repair Person Relationship Specialty Start Date End Date Lurdes Thomas MD PCP - General Internal Medicine 06/11/14 12/16/20 documented as of this encounter
--- OUTSIDE RECORDS SUMMARY | 2022-02-02 11:48 | XMS_ITS | Encounter Summary ---
:1955 Author Organization [place] Address [address] [facility] [place] [address] Care Team Providers Name Role Phone Lurdes Thomas MD Primary Care Provider [phone] Encounter Details Date Type Department Care Team Description 06/18/2014 Medical Correspondence [facility] Scan, GOALS AND CONCERNS [facility], Non-Provider Health Info Mgmt [facility] [address] [facility] [place] [address] Social History Tobacco Use Types [...] filedocumented in this encounter Care Teams Regional Engagement Consultant Relationship Specialty Start Date End Date Lurdes Thomas MD PCP - General Internal Medicine 06/11/14 12/16/20 documented as of this encounter
--- OUTSIDE RECORDS SUMMARY | 2022-02-02 11:48 | XMS_ITS | Encounter Summary ---
:1955 Author Organization [place] Address [address] [facility] [place] [address] Care Team Providers Name Role Phone Lurdes Thomas MD Primary Care Provider [phone] Encounter Details Date Type Department Care Team Description 07/18/[address] [facility] [address] [facility] [place] [phone] Social History Tobacco Use Types Packs/Day Years [...] Take 1 capsule 8 capsule 0 06/1208/01/2014 39572 UNIT (50,000 Units) by capsuleIndications: mouth every [...] 11:24 AM R esults for this ABDOMEN SUPPLY CHAIN LOGISTICS MANAGER procedure are i n the results section. documented in this encounter Results MR Digital Archive Non-[place] (05/26/2014 11:24 AM SUPPLY CHAIN LOGISTICS MANAGER) Specimen (Source) Anatomical Location Collection Method / Collectio n Time Received Time / Laterality Volume Narrative RADIANT - 07/18/2014 11:24 AM SUPPLY CHAIN LOGISTICS MANAGER <!--EPICS-->Digitized exam for comparison only; no results available<!--EPICE--> Radiology Non-Fv Credentialed Provider IMG EXTERNAL IM AGING ORDERABLES Performing Organization Address City/State/ZIP Code Phon e Number RADIANT documented in this encounter Visit Diagnoses Not on filedocumented in this encounter Care Teams Senior Game Designer Relationship Specialty Start Date End Date Lurdes Thomas MD PCP - General Internal Medicine 06/11/14 12/16/20 documented as of this encounter
--- OUTSIDE RECORDS SUMMARY | 2022-02-02 11:48 | XMS_ITS | Encounter Summary ---
:1955 Author Organization [place] Address [address] [facility] [place] [address] Care Team Providers Name Role Phone Lurdes Thomas MD Primary Care Provider Reason for Visit (Routine) - Closed Specialty Diagnoses / Procedures Referred By Contact Refer red To Contact Radiology / Radiology. Procedures Nuclear Medicine [place] [facility]AN[address] [place] [address] Phone: Fax: Referral ID Status Reason Start Date Expiration Date Visits Requ ested Visits Authorized [id number] Closed 06/20/2014 12/17/2014 1 1 Encounter Details Date Type Department Care Team Description 06/25/2014 Hospital Encounter [facility] Lurdes Thomas MD [address] [facility] [address] [address] [facility] [phone] [place], [place] [address] (Wo rk) Social History [...] Take 1 capsule 8 capsule 0 06/1208/01/2014 00328 UNIT (50,000 Units) by capsuleIndications: mouth every [...] (shortness of Resu lts for this LEXISCAN TRAFFIC SURVEY TECHNICIAN breath) procedure are i n the results section. documented in this encounter Visit Diagnoses Not on filedocumented in this encounter Care Teams Cuff Stitcher Relationship Specialty Start Date End Date Lurdes Thomas MD PCP - General Internal Medicine 06/11/14 12/16/20 documented as of this encounter
--- OUTSIDE RECORDS SUMMARY | 2022-02-02 11:48 | XMS_ITS | Encounter Summary ---
:1955 Author Organization [place] Address [address] [facility] [place] [address] Care Team Providers Name Role Phone Lurdes Thomas MD Primary Care Provider [phone] Reason for Visit Reason Comments Neurologic Problem Encounter Details Date Type Department Care Team Description 09/08/2014 Office Visit [facility] Arline Peñaloza S/Jana d eep brain Neurosurgery Clinic MARISOL Del Real LITIGATION ATTORNEY stimulator placement [place] [address] (Primary Dx) [address] [place], [place] [address] [address] [place] [address] Social History Tobacco Use [...] with tour of facility and escorted to [facility] scan check in. - Patient [...] mins nursing discharge time --Nomi Martell MSN, SPINNING FRAME CHANGER, LITIGATION ATTORNEY-C signature documented in this encounter Plan of Treatment Not on filedocumented as of this encounter Visit Diagnoses Diagnosis S/P deep brain stimulator placement - Pr imary documented in this encounter Care Teams Mill And Coal Transport Operator Relationship Specialty Start Date End Date Lurdes Thomas MD PCP - General Internal Medicine 06/11/14 12/16/20 documented as of this encounter
--- OUTSIDE RECORDS SUMMARY | 2022-02-02 11:48 | XMS_ITS | Encounter Summary ---
:1955 Author Organization [place] Address [address] [facility] [place] [address] Care Team Providers Name Role Phone Lurdes Thomas MD Primary Care Provider [phone] Encounter Details Date Type Department Care Team Description 07/08/2014 Medical Correspondence [facility], Non-Provider NEUROLOG Y-ORDER-2/ Health Info [facility] 11/2014 [facility] [address] [place] [address] Social History Tobacco Use Types [...] on filedocumented in this encounter Care Teams Courier Relationship Specialty Start Date End Date Lurdes Thomas MD PCP - General Internal Medicine 06/11/14 12/16/20 documented as of this encounter
--- OUTSIDE RECORDS SUMMARY | 2022-02-02 11:48 | XMS_ITS | Encounter Summary ---
:1955 Author Organization [place] Address [address] [place] [address] Care Team Providers Name Role Phone Lurdes Thomas MD Primary Care Provider [phone] Reason for Visit Auth/Cert - Closed Specialty Diagnoses / Procedures Referred By Contact Refer red To Contact Surgery Diagnoses PARKINSONS DISEASE Sh Periop Services Procedures OPTICAL TRACKING SYSTEM INSERTION DEEP BRAIN STIMULATION BILATERAL [address] [place] [address] Phone: Referral ID Status Reason Start Date Expiration Date Visits Requ ested Visits Authorized [id number] Closed 1 1 Encounter Details Date Type Department Care Team Description 09/09/2014 Anesthesia Event [facility] Andrew Narayan [place] PeriOP Ser shyann [place] [address] [place] [address] ANESTHESIOLOGIS [place] [address] [phone] [place] [address] Anesthesia Record Procedure [...] benefits and alternatives discussed with: patient or personal banking representative. . History & Physical Review [...] Arline Hutson APRN CNP vitamin D (ERGOCALCIFEROL) 31520 UNIT capsule Take 1 capsule (50,000 Units) [...] results for input(s): INR in the last 08256 hours. Invalid input(s): APTT RECENT LABS: ECG: NSR ECHO: CXR: documented in this encounter Miscellaneous Notes Anesthesia Care Transfer Note - Millicent Enciso APRN ANIMAL HUSBANDRY WORKER - 09/09/2014 10:58 AM CDT Anesthesia Care [...] mg documented in this encounter Care Teams Centrifugal Casting Machine Operator Relationship Specialty Start Date End Date Lurdes Thomas MD PCP - General Internal Medicine 06/11/14 12/16/20 documented as of this encounter
--- OUTSIDE RECORDS SUMMARY | 2022-02-02 11:48 | XMS_ITS | Encounter Summary ---
:1955 Author Organization [place] Address [address] [facility] [place] [address] Care Team Providers Name Role Phone Lurdes Thomas MD Primary Care Provider Reason for Visit (Routine) - Closed Specialty Diagnoses / Procedures Referred By Contact Refer red To Contact Radiology / Radiology. Procedures Nuclear Medicine [place] [facility] [address] [place] [address] Phone: Fax: Referral ID Status Reason Start Date Expiration Date Visits Requ ested Visits Authorized [id number] Closed 06/20/2014 06/20/2015 1 1 Encounter Details Date Type Department Care Team Description 06/25/2014 Hospital Encounter [facility] Lurdes Thomas MD [address] [facility] [address] 8675 [facility] [phone] [place], [place] [address] (Wo rk) Social History [...] Take 1 capsule 8 capsule 0 06/1208/01/2014 78532 UNIT (50,000 Units) by capsuleIndications: mouth every [...] (shortness of Resu lts for this LEXISCAN PRODUCT SALES ENGINEER breath) procedure are i n the results section. documented in this encounter Visit Diagnoses Not on filedocumented in this encounter Care Teams Electronic Systems Technician Relationship Specialty Start Date End Date Lurdes Thomas MD PCP - General Internal Medicine 06/11/14 12/16/20 documented as of this encounter
--- OUTSIDE RECORDS SUMMARY | 2022-02-02 11:48 | XMS_ITS | Encounter Summary ---
:1955 Author Organization [place] Address [address] [place] [address]. [place] [address] Care Team Providers Name Role Phone Lurdes Thomas MD Primary Care Provider [phone] Reason for Visit Reason Comments Neurologic Problem DBS Consult Encounter Details Date Type Department Care Team Description 07/17/2014 [facility] [address] [facility] [address] [place], [place] [address] Parkinson's disease Neurosurgery Clinic Rachel Cuadra APRN MARKETING PROJECT LEAD [facility] [address] [facility] [address] [place], [place] [address] (H) (Primary Dx) [address] [address] Social History Tobacco Use Types [...] Comments Blood Pressure 124/81 07/17/2014 9:15 AM SITE MEDICAL DIRECTOR Pulse 94 07/17/2014 9:15 AM SITE MEDICAL DIRECTOR Temperature 36.6 ??C (97.8 ??F) 07/17/2014 9:15 AM SITE MEDICAL DIRECTOR Respiratory Rate - - Oxygen Saturation 94% 07/17/2014 9:15 AM SITE MEDICAL DIRECTOR Inhaled Oxygen Concentration - - Weight 99.1 kg (218 lb 6.4 oz) 07/17/2014 9:15 AM SITE MEDICAL DIRECTOR Height 185.4 cm (6' 1) 07/17/2014 9:15 AM SITE MEDICAL DIRECTOR Body Mass Index 28.81 07/17/2014 9:15 AM SITE MEDICAL DIRECTOR documented in this encounter Patient Instructions Patient [...] no sleep medications the night before surgery MEDICAL DIRECTOR documented in this encounter Progress Notes Rachel Cuadra APRN CNP - 07/17/2014 9:[address] [facility] Neurosurgery Consult Note CC: Tremors and legs are lockingup Primary care Provider: Lurdes Thomas Referring provider: Dr. Maria Esther Phan HPI: Andrew Pang is a 59 year old male with a history of Parkinsons disease. He was diagnosed in August of 2007. He has been treating at the [facility] as well as Dr. Phan. [...] up at night. 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 He was [...] Outpatient Prescriptions Medication ??? vitamin D (ERGOCALCIFEROL) 46940 UNIT capsule ??? rotigotine (NEUPRO) 8 MG/24HR [...] Onset ??? Cardiovascular Mother CVA x4 and IA, s/p CABG in mid-late 60's ??? Cardiovascular Father IA, s/p CABG in mid-late 60's ??? Diabetes [...] of Parkinson's disease. [facility]. [facility] [...] agreement with recommendations and plan. Rachel Cuadra MARKETING PROJECT LEAD [facility] [address] [place] [address] Pager [phone] Jordana Kline - 07/17/2014 9:18 AM CST [...] a DBS consult(Parkinsons) - referred by Dr. Phan([facility]) 5 nursing intake time Jordana Kline CMA Discharge plan: Patient given After Visit Summary. He will be scheduled for Bilateral DBS 2 nursing discharge time Jordana Kline CMA signature MEDICAL DIRECTOR documented in this encounter Plan [...] MD Rachel Cuadra APRN [facility] ORDERABLES MR Brain w/o & w [...] planning purposes. COMPARISON: Diagnostic brain MRI from [facility] 05/26/2014. FINDINGS: The ventricles are [...] planning purposes. COMPARISON: Diagnostic brain MRI from [facility] 05/26/2014. FINDINGS: The ventricles are normal in s ize. There is no midline shift. There are no extra-axial fluid co llections. There is no evidence for intracranial hemorrhage. IMPRESSION IMPRESSION: Treatment planning brain MRI images with no evidence for acute intracranial pathology. BETTY CLOUD MD Rachel Cuadra APRN MARKETING PROJECT LEAD IMG MRI ORDERABLES documented in this encounter Visit Diagnoses Diagnosis Parkinson's disease (H) - Primary Paralysis agitans Parkinson's disease (H) Paralysis agitans Parkinson's disease (H) Paralysis agitans documented in this encounter Care Teams Rn Clinical Resource Relationship Specialty Start Date End Date Lurdes Thomas MD PCP - General Internal Medicine 06/11/14 12/16/20 documented as of this encounter
--- OUTSIDE RECORDS SUMMARY | 2022-02-02 11:48 | XMS_ITS | Encounter Summary ---
:1955 Author Organization [facility] Address [address] [facility] [place] [place] [address] Care Team Providers Name Role Phone Lurdes Thomas MD Primary Care Provider [phone] Reason for Visit Auth/Cert - Closed Specialty Diagnoses / Procedures Referred By Contact Refer red To Contact Surgery Diagnoses PARKINSONS DISEASE Sh Periop Services Procedures OPTICAL TRACKING SYSTEM INSERTION DEEP BRAIN STIMULATION BILATERAL [address] [place] [address] Phone: Referral ID Status Reason Start Date Expiration Date Visits Requ ested Visits Authorized [id number] Closed 1 1 Encounter Details Date Type Department Care Team Description 09/09/2014 [facility]10[facility]2014 Simone Snider MD Care XX RESIGNED XX [address] [place] [address] [place] [id number] Social History Tobacco Use Types Packs/Day Years [...] APRN CNP - 09/10/2014 9:[address] [facility] Discharge Summary Neurosurgery Date of Admission: [...] up with further consultation recommendations. Rachel Cuadra WEIGHT COUNT OPERATOR [facility] [address] [place] [address] Pager [phone] Significant Results and Procedures NONE Pending Results [...] other recreational vehicles Call my office at [phone] for increasing redness, swelling or pus draining [...] deep brain stimulator placement vitamin D (ERGOCALCIFEROL) 61428 UNIT capsule Take 1 capsule (50,000 Units) [...] encounter Discharge Instructions Discharge Rachel Muñoz APRN WEIGHT COUNT OPERATOR - 09/10/2014 9:19 AM CDT Discharge instructions: No lifting of more than 10 pounds until follow up visit as scheduled Ok to walk as tolerated, avoid bedrest. Ok to use ice to areas. No contact sports until after follow up visit No high impact activities such as; running/jogging, Biking, snowmobile or 4 miller riding or any other recreational vehicles Call my office at [phone] for increasing redness, swelling or pus draining [...] Take 1 capsule 4 capsule 2 08/2602/12/2015 66848 UNIT (50,000 Units) by capsuleIndications: Vitamin mouth [...] Thomas MD - 08/25/2014 12:38 PM CDT [address] [address] Dept: [phone] PRE-OP EVALUATION: Today's date: 08/25/2014 Andrew Poly (: 1955) presents for pre-operative evaluation assessment as requested by . He requires evaluation and anesthesia risk assessment prior to undergoing surgery/procedurefor treatment of Parkinson's . Proposed procedure: Deep brain stimulator implant Date of Surgery/ Procedure: 09/09& Time of Surgery/ Procedure: 529 Hospital/Surgical Facility: [facility] Primary Physician: Lurdes Thomas Type of [...] cardiovascular risks for perioperative complications such as (TN, PE, VFib and 3?? AV Block): No [...] evaluation report is provided to requesting physician. [facility] Preop Guidelines documented in this encounter Nursing [...] care (reference Craniotomy/Craniectomy/Cranioplasty (Adult) CPG). Outcome: Improving [phone] Neuro: slight tremors hands, would freeze at times with walking/transfer otherwise intact as pre hospitalization per pt. CV: Nicardipine weaned to off keeping SB/P 90-140. GI Eating well. U/O voiding. Discharge instructions reviewed and given, see paper sheets. Discharged with to [facility] with w/cand volunteer Plan of Care [...] brain stimulator placement SURGEON: Gonzalez Rowland MD Chief Environmental Commitment Officer: Arline Hutson NP 59 yo man [...] eda holes were made with the 14mm transport analyst drill over the markedbony entry points. The [...] microelectrode were inserted at 15mm above target, [id number] and impedences confirmed <400kohms. I began advancing [...] effects. The decisionwas made to insert a Markkittronic 3389 macroelectrode with the distal 0 contact [...] The decision was made to insert a Markkittronic 3389 macroelectrode with the distal 0 contact [...] Gonzalez Rowland MD [facility] POCT Performing Organization Address City/State/ZIP Code Phon [...] stimulator leads. LOGAN GUILLERMO MD Arline Peñaloza SHAKE FEEDER WEIGHT COUNT OPERATOR IMG CT ORDERABLES Hemoglobin (09/09/2014 6:10 AM CDT) P athologist Signature Hemoglobin 14.8 13.3 - 17.7 [facility] g/dL [facility] Specimen Anatomical Collection Method Collection Time Receive d Time (Source) Location / / Volume Laterality Blood specimen 09/09/2014 6:10 AM 015 6:13 (specimen) CDT AM CDT Jacquie Coughlin LAB - BLOOD ORDERABLES Performing Organization Address City/State/ZIP Code Phon e Number [facility] [address], [place] [address] [facility] [address] [place] [address] Potassium (09/09/2014 6:10 AM CDT) athologist Signature Potassium 3.4 3.4 - 5.3 [facility] mmol/L [facility] Specimen Anatomical Collection Method Collection Time Receive d Time (Source) Location / / Volume Laterality Blood specimen 09/09/2014 6:10 AM 015 6:13 (specimen) CDT AM CDT Jacquie Coughlin LAB - BLOOD ORDERABLES Performing Organization Address City/State/ZIP Code Phon e Number [facility] [address] [place] [address] [facility] [address] [place] [address] documented in this encounter Visit Diagnoses Diagnosis [...] Provider: Lori Comer RN)0754 (Given - Provider: Millicetn Enciso APRN CRNA)0954 (Given - Provider: Millicent Enciso APRN CRNA) Routine, 2 g, Intravenous, PRE-OP/PRE-MA OCEDURE, Starting on Mon09/09/14 at 0543, For [...] Volume Adjustment - Provider: Millicent Enciso APRN HIGH SPEED PRINTER OPERATOR)1020 (New Bag - Provider: Millicent Enciso APRN [...] RN) 0.3-0.5 mg, Intravenous, EVERY 30 MIN MA N, Starting Mon09/09/14 at 1209, Until Mon09/10/14 [...] (CA NCELED) 0844 (New Bag - Provider: Millcient Enciso APRN CRNA - Comment: surgeon and MDA aware of infusion starting)0850 (Rate/Dose Change - Provider: Millicent Enciso APRN HIGH SPEED PRINTER OPERATOR)0853 (Rate/Dose Change - Provider: Millicent Enciso APRN [...] (Rate/Dose Change - Provider: Millicent Enciso APRN HIGH SPEED PRINTER OPERATOR)1030 (Rate/Dose Change - Provider: Millicent Enciso APRN HIGH SPEED PRINTER OPERATOR) 1040 (Rate/Dose Scott ge - Provider: Millicent [...] PRN, Starting on Mon09/09/14 at 0858, Intra-procedure ogvydmzb-mwyqmqtpwj-jhidnjnio-calcium (TISSEEL) topical solu tion (CANCELED) 0859 (Given - Provider: Gonzalez Rowland)0900 (Given - Provider: Gonzalez Rowland)0901 (Given - Provider: Gonzalez Rowland)0921 (Given - Provider: Gonzalez Rowland)0943 (Given - Provider: Gonzalez Rowland) PRN, Starting on Mon09/09/14 at 0859, Intra-procedure documented in this encounter Care Teams Bread Slicer Machine Relationship Specialty Start Date End Date Lurdes Thomas MD PCP - General Internal Medicine 06/11/14 12/16/20 documented as of this encounter
--- OUTSIDE RECORDS SUMMARY | 2022-02-02 11:49 | XMS_ITS | Encounter Summary ---
:1955 Author Organization [place] Address [address] [place] [address]. [place] [address] Care Team Providers Name Role Phone Lurdes Thomas MD Primary Care Provider [phone] Reason for Visit Reason Onset Date Comments Refill Request 04/11/2011 pravastatin Encounter Details Date Type Department Care Team Description 04/11/2011 Refill [facility] Eag Lurdes Rojas Refill Request 14[address] [facility] [place] (pravastatin) [place] [address] [facility] [phone] [address] (Wo rk) Social History [...] labs letter sent. Received refill request from [facility] for pravastatin. Last Office Visit R/T [...] comparison chart: [facility] CoA REDUCTASE INHIBITORS (STATINS) FILTERS INSPECTOR documented in this encounter Plan of Treatment Not on filedocumented as of this encounter Visit Diagnoses Diagnosis Hyperlipidemia LDL goal < 130 - Primary Other and unspecified hyperlipidemia documented in this encounter Care Teams Dredge Mechanic Relationship Specialty Start Date End Date Lurdes Thomas MD PCP - General Internal Medicine 04/12/10 04/03/13 documented as of this encounter
--- OUTSIDE RECORDS SUMMARY | 2022-02-02 11:49 | XMS_ITS | Encounter Summary ---
:1955 Author Organization [facility] Address [address] [place] [address]. [place] [address] Care Team Providers Name Role Phone Unavailable Primary Care Provider Unavailable Reason for Visit Reason Onset Date Comments Outreach 04/04/2013 Preventative health screening Encounter Details Date Type Department Care Team Description 04/04/2013 Telephone [facility] Lurdes Rojas Outreach (Preventative 14[address] [facility] MD [place] health screening) [place] [address] [facility] [phone] [address] (Wo rk) Social History Tobacco Use [...] Comments: Per patient, he has [facility] to [facility] due to insurance change, [facility]. Outreach Director Of Trauma Charanjit Amaro RAMMER OPERATOR NUMERICAL CONTROL documented in this encounter Plan of Treatment Not on filedocumented as of this encounter Visit Diagnoses Not on filedocumented in this encounter
--- OUTSIDE RECORDS SUMMARY | 2022-02-02 11:49 | XMS_ITS | Encounter Summary ---
:1955 Author Organization [place] Address [address] [place] [address]. [place] [address] Care Team Providers Name Role Phone Lurdes Thomas MD Primary Care Provider Reason for Visit Reason Comments Refill Request lab draw Encounter Details Date Type Department Care Team Description 09/20/2012 Office Visit [facility] Lurdes Thomas Hyperlipi demkatlyn LDL goal < 130 (Primary Dx); Uzair Laughlin MD Parkinson disease (H); [address] [facility] Prediabetes; [place] [address] [place] Screening for diabetes mellitus; [phone] 86[address] [facility] Screening [place] [address] Social History Tobacco Use Types Packs/Day Years [...] Body Mass Index 23.75 07/27/2011 10:04 AM WALLCOVERING HANGER documented in this encounter Patient Instructions Patient [...] list, Allergies, and Medical/Social/Surgical histories reviewed in [facility] andupdated as appropriate. OBJECTIVE: BP 112/62 [...] Provider - 1 year Lurdes Thomas MD [facility] documented in this encounter Nursing Notes 09/20/2012 8:00 AM CDT >> ERROL WARREN [facility] September 20, 2012 8:08 AM Patient [...] athologist Signature Sodium 139 133 - 144 [place] mmol/L [facility]INIC LAB Potassium 4.6 3.4 - 5.3 [facility] mmol/L [facility] Chloride 101 94 - 109 [place] mmol/L [facility] Carbon Dioxide 31 20 - 32 [place] mmol/L [facility] Anion Gap 7 6 - 17 [place] mmol/L [facility] Glucose 104 (H) 60 - 99 [facility] mg/dL CLINIC LAB Comment: Fasting specimen Urea Nitrogen 24 7 - 30 mg/dL [facility] N [facility] Creatinine 0.94 0.66 - 1.25 mg/dL [facility] GFR Estimate 83 >60 mL/min/1.7m2 [facility] GFR Estimate If Black >90 >60 mL/min/1.7m2 [facility] Calcium 8.8 8.5 - 10.4 mg/dL [facility] Bilirubin Total 1.0 0.2 - 1.3 mg/dL [facility] Albumin 4.1 3.3 - 4.9 g/dL [facility] Comment: Reference range changed on 01/21. Protein Total 7.0 6.8 - 8.8 g/dL [facility] Comment: As of 07, reference range reflects plasma specimen type. Alkaline Phosphatase 81 40 - 150 U/L [facility] LAB ALT 17 0 - 70 U/L [facility] CLIN IC LAB AST 54 (H) 0 - 45 U/L [facility] CLIN IC LAB Specimen Anatomical Collection Method Collection Time Receive d Time (Source) Location / / Volume Laterality Blood specimen 09/20/2012 8:17 AM 013 8:22 (specimen) CDT AM CDT Lurdes Thomas MD LAB - BLOOD ORDERABLES Performing Organization Address City/State/ZIP Code Phon e Number [facility] [address] [place] [address] [facility]IC LAB [address] [place] [address] Lipid panel reflex to direct LDL (09/20/2012 8:17 AM CDT) athologist Signature Cholesterol 178 0 - 200 [facility] mg/dL CLINIC LAB Comment: LDL Cholesterol is the primary guide to therapy. The NCEP recommends further evaluation of: patients with cholesterol greater than 200 mg/dL if additional risk facto rs are present, cholesterol greater than 240 mg/dL, triglycerides greater than 1 50 mg/dL, or HDL less than 40 mg/dL. Triglycerides 83 0 - 150 mg/dL [facility] HDL Cholesterol 66 40 - 110 mg/dL [facility] LDL Cholesterol Calculated 95 0 - 129 mg/dL [facility] Comment: LDL Cholesterol is the primary guide to therapy: LDL-cholesterol goal in high risk patients is <100 mg/dL and in very high risk patients is <70 mg/dL. VLDL-Cholesterol 17 0 - 30 mg/dL [facility] Cholesterol/HDL Ratio 2.7 0.0 - 5.0 [facility] Specimen Anatomical Collection Method Collection Time Receive d Time (Source) Location / / Volume Laterality Blood specimen 09/20/2012 8:17 AM 013 8:22 (specimen) CDT AM CDT Lurdes Thomas MD LAB - BLOOD ORDERABLES Performing Organization Address City/State/ZIP Code Phon e Number [facility] [address] [place] [address] [facility] [address] [place] [address] documented in this encounter Visit Diagnoses Diagnosis Hyperlipidemia LDL goal < 130 - Primary Other and unspecified hyperlipidemia Parkinson disease (H) Paralysis agitans Prediabetes Other abnormal glucose Screening for diabetes mellitus Screening for colon cancer Special screening for malignant neoplasm s, colon documented in this encounter Care Teams Structural Steel Erection Supervisor Relationship Specialty Start Date End Date Lurdes Thomas MD PCP - General Internal Medicine 04/12/10 04/03/13 documented as of this encounter
--- OUTSIDE RECORDS SUMMARY | 2022-02-02 11:49 | XMS_ITS | Encounter Summary ---
:1955 Author Organization [place] Address [address] [place] [address]. [place] [address] Care Team Providers Name Role Phone Lurdes Thomas MD Primary Care Provider [phone] Reason for Referral Referral not Required - Closed Specialty Diagnoses / Procedures Referred By Contact Refer red To Contact Diagnoses Cervical radicular pain Francisco Kitchen MD [facility] [address] [place] [address] [address] [facility] [place] [address] AD[address] OFF[address] [place] [address] Phone: [phone] Referral ID Status Reason Start Date Expiration Date Visits Requ ested Visits Authorized [id number] Closed 10/25/2011 04/22/2012 1 1 Reason for Visit Reason Comments Back Pain Encounter Details Date Type Department Care Team Description 10/25/2011 Office Visit [facility] Francisco Kitchen DDD (degene rative disc disease), cervical; Uzair Currie MD Cervical radicular pain [address] [place] [address] [place] [address] [facility] [phone] [place] [address] Social History Tobacco Use [...] Body Mass Index 24.6 07/27/2011 10:04 AM STAKER SURVEYING documented in this encounter Patient Instructions Patient [...] - 10/25/2011 10:59 AM CDT SUBJECTIVE: Andrew aPng is a 56 year old who presents [...] nos documented in this encounter Care Teams Youth Manager Relationship Specialty Start Date End Date Lurdes Thomas MD PCP - General Internal Medicine 04/12/10 04/03/13 documented as of this encounter
--- OUTSIDE RECORDS SUMMARY | 2022-02-02 11:49 | XMS_ITS | Encounter Summary ---
:1955 Author Organization [place] Address [address] [place] [address]. [place] [address] Care Team Providers Name Role Phone Lurdes Thomas MD Primary Care Provider [phone] Reason for Visit Reason Comments Establish Care Encounter Details Date Type Department Care Team Description 04/12/2010 Office Visit [facility] Lurdes Thomas Erectile dysfunction (Primary Dx); Uzair Laughlin MD Parkinson disease (H); [address] [place] Hyperlipidemia LDL goal < 13 0; [place] [address] [place] Restless leg [phone] [place] [address] Social History Tobacco Use Types [...] Comments Blood Pressure 122/60 04/12/2010 10:07 AM MANAGER APPLE Pulse 70 04/12/2010 10:07 AM MANAGER APPLE Temperature - - Respiratory Rate - - Oxygen Saturation - - Inhaled Oxygen Concentration - - Weight 87 kg (191 lb 12.8 oz) 04/12/2010 10:07 AM MANAGER APPLE Height 186.7 cm (6' 1.5) 04/12/2010 10:07 AM MANAGER APPLE Body Mass Index 24.96 04/12/2010 10:07 AM MANAGER APPLE documented in this encounter Progress Notes Lurdes [...] MG tablet Lurdes Laughlin MD Internal Medicine/Pediatrics GER APPLE documented in this encounter Nursing Notes 04/12/2010 [...] (RLS) documented in this encounter Care Teams Natural Gas Shothole Driller Relationship Specialty Start Date End Date Lurdes Thomas MD PCP - General Internal Medicine 04/12/10 04/03/13 documented as of this encounter
--- OUTSIDE RECORDS SUMMARY | 2022-02-02 11:49 | XMS_ITS | Encounter Summary ---
:1955 Author Organization [place] Address [address] [place] [address]. [place] [address] Care Team Providers Name Role Phone Lurdes Thomas MD Primary Care Provider [phone] Reason for Visit Reason Onset Date Comments Medication Request 10/24/2011 robaxin Encounter Details Date Type Department Care Team Description 10/24/2011 Telephone [facility] Eag Lurdes Rojas Medication Request 1440 [facility] MD [place] (robaxin) [place] [address] [facility] [phone] [address] (Wo rk) Social History [...] on filedocumented in this encounter Care Teams Time Study Technologist Relationship Specialty Start Date End Date Lurdes Thomas MD PCP - General Internal Medicine 04/12/10 04/03/13 documented as of this encounter
--- OUTSIDE RECORDS SUMMARY | 2022-02-02 11:49 | XMS_ITS | Encounter Summary ---
:1955 Author Organization [place] Address [address] [place] [address]. [place] [address] Care Team Providers Name Role Phone Lurdes Thomas MD Primary Care Provider [phone] Reason for Visit Reason Onset Date Comments Results 10/20/2010 Encounter Details Date Type Department Care Team Description 10/20/2010 Telephone [facility] Eag Lurdes Rojas, Results 1440 [facility] [place] Galarza [address] [facility] [phone] 8675 [place], [place] [address] (Wo rk) Social History [...] hyperlipidemia documented in this encounter Care Teams Operations Expert Relationship Specialty Start Date End Date Lurdes Thomas MD PCP - General Internal Medicine 04/12/10 04/03/13 documented as of this encounter
--- OUTSIDE RECORDS SUMMARY | 2022-02-02 11:49 | XMS_ITS | Encounter Summary ---
:1955 Author Organization [place] Address [address] [place] [address]. [place] [address] Care Team Providers Name Role Phone Lurdes Thomas MD Primary Care Provider Reason for Visit Reason Onset Date Comments Pt. Information/instruction 10/26/2011 Physical the rapy Encounter Details Date Type Department Care Team Description 10/26/2011 Telephone [facility] Eag Lurdes Rojas Pt. 1440 [facility] MD [place] Information/instruction [place] [address] [facility] (Physical therapy) [phone] [place] [address] (Wo rk) Social History Tobacco Use [...] took him to a chiropractor here in [place] who does the ultrasound treatments. He got [...] on filedocumented in this encounter Care Teams Preschool Assistant Teacher Relationship Specialty Start Date End Date Lurdes Thomas MD PCP - General Internal Medicine 04/12/10 04/03/13 documented as of this encounter
--- OUTSIDE RECORDS SUMMARY | 2022-02-02 11:49 | XMS_ITS | Encounter Summary ---
:1955 Author Organization [place] Address [address] [place] [address]. [place] [address] Care Team Providers Name Role Phone Lurdes Thomas MD Primary Care Provider Reason for Visit Reason Onset Date Comments Lab Result Notice 07/28/2011 Encounter Details Date Type Department Care Team Description 07/28/2011 Telephone [facility] Eag an Lurdes Thomas Lab Result Notice 1440 [facility] [place] [address] [facility] [phone] [address] (Wo rk) Social History Tobacco Use [...] Lurdes Laughlin MD - 07/28/2011 9:25 PM SAMPLE PULLER LDL not at goal, needs increased dose. Lurdes Laughlin MD Internal Medicine/Pediatrics LE PULLER documented in this encounter Plan of Treatment Not on filedocumented as of this encounter Visit Diagnoses Diagnosis Hyperlipidemia LDL goal < 130 - Primary Other and unspecified hyperlipidemia documented in this encounter Care Teams Room Service Associate Relationship Specialty Start Date End Date Lurdes Thomas MD PCP - General Internal Medicine 04/12/10 04/03/13 documented as of this encounter
--- OUTSIDE RECORDS SUMMARY | 2022-02-02 11:49 | XMS_ITS | Encounter Summary ---
:1955 Author Organization [place] Address [address] [place] [address]. [place] [address] Care Team Providers Name Role Phone Lurdes Thomas MD Primary Care Provider Reason for Visit Reason Comments Edema right foot and ankle Encounter Details Date Type Department Care Team Description 03/15/2011 Office Visit [facility] Lurdes Thomas Swelling of extremity, Uzair Laughlin MD right (Primary Dx) 1440 [facility] [place] [address] [place] [phone] 8675 [place], [place] [address] Social History Tobacco Use [...] CDT Ultrasound of right leg at 4:15 [facility] [address] [place] [place] [address] Wait for results - will page me [...] about 2 weeks ago. Had traveled to [place] the week before. Only on right side. [...] lb 4.8 oz (88.587 kg) BMI 25.42 kg/j3Zcqispebj Body mass index is 25.42 kg/(m^2) as [...] limb documented in this encounter Care Teams Invisible Braces Orthodontist Relationship Specialty Start Date End Date Lurdes Thomas MD PCP - General Internal Medicine 04/12/10 04/03/13 documented as of this encounter
--- OUTSIDE RECORDS SUMMARY | 2022-02-02 11:49 | XMS_ITS | Encounter Summary ---
:1955 Author Organization [place] Address [address] [place] [address]. [place] [address] Care Team Providers Name Role Phone Oli Thomas MD Primary Care Provider [phone] Reason for Visit Reason Comments Breathing Problem Encounter Details Date Type Department Care Team Description 06/11/2014 Office Visit [facility] Oli Thomas SOB (shor tness of breath) (Primary Dx); Uzair Laughlin MD Fatigue; 1440 [facility] Vitamin D deficiency disease ; [place] [address] [place] Lower extremity edema; [phone] 8635 [facility] (ghazala roesophageal reflux disease) [place], [place] [address] Social History Tobacco Use [...] Comments Blood Pressure 114/70 06/11/2014 8:04 AM GAS GENERATOR OPERATOR Pulse 99 06/11/2014 8:04 AM GAS GENERATOR OPERATOR Temperature 36.9 ??C (98.5 ??F) 06/11/2014 8:04 AM GAS GENERATOR OPERATOR Respiratory Rate - - Oxygen Saturation 94% 06/11/2014 8:04 AM GAS GENERATOR OPERATOR Inhaled Oxygen Concentration - - Weight 95.6 kg (210 lb 12.8 oz) 06/11/2014 8:04 AM GAS GENERATOR OPERATOR Height 186.7 cm (6' 1.5) 06/11/2014 8:04 AM GAS GENERATOR OPERATOR Body Mass Index 27.43 06/11/2014 8:04 AM GAS GENERATOR OPERATOR documented in this encounter Patient Instructions Patient InstructionsSerumOli MD - 06/11/2014 9:03 AM GAS GENERATOR OPERATOR 1. Labs today: liver function, kidney function, blood counts, vitamin D levels 2. You will be contacted to set up the stress test and echocardiogram (ultrasound) of the heart GENERATOR OPERATOR documented in this encounter Progress Notes Oli [...] likely in July. Insurance recently changed and [facility] within network. Was seen at [facility] last year. Reviewed labs in care [...] and Medical/Social/Surgical histories reviewed in [facility] andupdated as appropriate. OBJECTIVE: BP 114/70 Pulse [...] with Provider - 1 month Oli Thomas [facility] [place] GENERATOR OPERATOR documented in this encounter Nursing Notes Tamy [...] using cuff size: large Tamy Leahy LPN GENERATOR OPERATOR documented in this encounter Miscellaneous Notes Addendum Note - Oli Thomas MD - 06/12/2014 4:46 PM GAS GENERATOR OPERATOR Addended by: OLI THOMAS on: 06/12/2014 04:46 PM Modules accepted: Orders GENERATOR OPERATOR documented in this encounter Plan of Treatment Not on filedocumented as of this encounter Procedures Procedure Name Priority Date/Time Associated Comments Diagnosis CBC WITH PLATELETS & Routine 06/11/2014 9:05 AM SOB (shortness of Results for this DIFFERENTIAL GAS GENERATOR OPERATOR breath) procedure are in Fatigue the results section. VITAMIN D DEFICIENCY Routine 06/11/2014 9:05 AM Vitamin D R esults for this SCREENING GAS GENERATOR OPERATOR deficiency disease procedure are in the results section. COMPREHENSIVE Routine 06/11/2014 9:05 AM SOB (shortness of Res ults for this METABOLIC PANEL GAS GENERATOR OPERATOR breath) procedure are in Fatigue the results Lower extremity section. edema EKG 12-LEAD COMPLETE Routine 06/11/2014 SOB (shortness of Re sults for this W/READ - CLINICS breath) procedure a re in the results section. documented in this encounter Results NM Lexiscan stress test (06/25/2014 1:06 PM GAS GENERATOR OPERATOR) Anatomical Region Laterality Modality Chest Nuclear Medicine Specimen (Source) Anatomical Location Collection Method / Collectio n Time Received Time / Laterality Volume Narrative 06/26/2014 10:06 AM GAS GENERATOR OPERATOR GATED MYOCARDIAL PERFUSION SCINTIGRAPHY WITH INTRAVENOUS PHARMACOLOGIC [...] (ABNORMAL) Vitamin D Deficiency (06/11/2014 9:05 AM GAS GENERATOR OPERATOR) P athologist Signature Vitamin D 21 (L) 30 - 75 [facility] Deficiency ug/L [place] MEDICAL screening [facility] Comment: Season, race, dietary intake, and treatm ent affect the concentration of 48-psacyeg-Sgivewe D. Values may decrea se during winter [...] specimen 06/11/2014 9:05 AM 015 9:07 (specimen) GAS GENERATOR OPERATOR AM GAS GENERATOR OPERATOR Oli Thomas MD LAB - BLOOD ORDERABLES Performing Organization Address City/State/ZIP Code Phon e Number [address] [address] [facility] CBC with platelets differential (06/11/2014 9:05 AM GAS GENERATOR OPERATOR) [facility] gist Method Time Signature WBC 4.8 4.0 - [facility] 11.0 CLINICS 10e9/L [facility] RBC Count 5.06 4.4 - 5.9 [facility] 10e12/L [facility] Hemoglobin 15.4 13.3 - [facility] 17.7 g/dL [facility] Hematocrit 46.8 40.0 - [facility] 53.0 % CLINICS [facility] MCV 93 78 - 100 [place] fl [facility]INICS [facility] MCH 30.4 26.5 - [facility] 33.0 pg CLINICS [facility] MCHC 32.9 31.5 - [facility] 36.5 g/dL CLINICS [facility] RDW 12.7 10.0 - [facility] 15.0 % CLIN[facility] Platelet Count 205 150 - 450 [facility] 10e9/L [facility] Diff Method Automated [place] Method [facility]ICS [facility] % Neutrophils 55.7 % [place] [facility] % Lymphocytes 32.6 % [place] [facility] % Monocytes 9.8 % [place] [facility] % Eosinophils 1.5 % [place] [facility] % Basophils 0.4 % [place] [facility] Absolute 2.7 1.6 - 8.3 [facility] Neutrophil 10e9/L CLINICS [facility] Absolute 1.6 0.8 - 5.3 [facility] Lymphocytes 10e9/L CLIN[facility] Absolute 0.5 0.0 - 1.3 [facility] Monocytes 10e9/L [facility] Absolute 0.1 0.0 - 0.7 [facility] Eosinophils 10e9/L [facility] Absolute 0.0 0.0 - 0.2 [facility] Basophils 10e9/L [facility] Specimen Anatomical Collection Method Collection Time Receive d Time (Source) Location / / Volume Laterality Blood specimen 06/11/2014 9:05 AM 015 9:07 (specimen) GAS GENERATOR OPERATOR AM GAS GENERATOR OPERATOR Oli Thomas MD LAB - BLOOD ORDERABLES Performing Organization Address City/State/ZIP Code Phon e Number [facility] 14[address] [place] [address] (ABNORMAL) Comprehensive metabolic panel (06/11/2014 9:05 AM GAS GENERATOR OPERATOR) Analysis Performed At [facility] logis Time Signature Sodium 139 133 - 144 [place] mmol/L [facility] Potassium 4.7 3.4 - 5.3 [place] mmol/L [facility] Chloride 104 94 - 109 [place] mmol/L [facility] Carbon Dioxide 31 20 - 32 [place] mmol/L [facility] Anion Gap 4 3 - 14 [place] mmol/L [facility] Glucose 102 (H) 70 - 99 [place] mg/dL [facility] Comment: Effective 12/18/2013, the reference range for this assay has changed to reflect new instrumentation/methodology. Urea Nitrogen 21 7 - 30 mg/dL [place] CL[facility] ICS [facility] Comment: Effective 12/18/2013, the reference range for this assay has changed to reflect new instrumentation/methodology. Creatinine 0.82 0.66 - 1.25 [facility] mg/dL [facility] GFR Estimate >90 >60 mL/min/1.7m2 [facility] Non GFR Calc [facility] GFR Estimate If Black >90 >60 mL/min/1.7m2 F [facility] GFR Calc BLOO [facility] Calcium 9.1 8.5 - 10.1 mg/dL [place] [facility] Comment: Effective 12/18/2013, the reference range for this assay has changed to reflect new instrumentation/methodology. Bilirubin Total 0.6 0.2 - 1.3 mg/dL [facility] Albumin 4.1 3.4 - 5.0 g/dL [facility] S [facility] Protein Total 7.5 6.8 - 8.8 g/dL [place] [facility] IN[facility] Alkaline Phosphatase 106 40 - 150 U/L [facility] ALT 20 0 - 70 U/L [facility] AST 37 0 - 45 U/L [facility] Specimen Anatomical Collection Method Collection Time Receive d Time (Source) Location / / Volume Laterality Blood specimen 06/11/2014 9:05 AM 015 9:07 (specimen) GAS GENERATOR OPERATOR AM GAS GENERATOR OPERATOR Oli Thomas MD LAB - BLOOD ORDERABLES Performing Organization Address City/State/ZIP Code Phon e Number [facility] [address] [place] [address] XR Chest 2 Views (06/11/2014 8:52 AM GAS GENERATOR OPERATOR) Anatomical Region Laterality Modality Chest Computed Radiography Specimen (Source) Anatomical Location Collection Method / Collectio n Time Received Time / Laterality Volume Impressions 06/11/2014 9:24 AM GAS GENERATOR OPERATOR IMPRESSION: ??Negative. CYNTHIA PACE MD Narrative 06/11/2014 9:24 AM GAS GENERATOR OPERATOR XR CHEST 2 VW ??06/11/2014 8:52 [...] breath documented in this encounter Care Teams Leasing Professional Relationship Specialty Start Date End Date Oli Thomas MD PCP - General Internal Medicine 06/11/14 12/16/20 documented as of this encounter
--- OUTSIDE RECORDS SUMMARY | 2022-02-02 11:49 | XMS_ITS | Encounter Summary ---
:1955 Author Organization [place] Address [address] [place] [address]. [place] [address] Care Team Providers Name Role Phone Lurdes Thomas MD Primary Care Provider [phone] Reason for Visit Reason Onset Date Comments Musculoskeletal Problem 07/13/2010 Muscle aches and weakness Encounter Details Date Type Department Care Team Description 07/13/2010 Telephone [facility] Lurdes Thomas Musculosk eletal Problem Uzair Laughlin MD (Muscle aches and [address] [employer] weakness) [place] [address] [place] [phone] 86[address] [place], [place] [address] Social History Tobacco Use [...] - Lurdes Laughlin - 07/16/2010 12:46 PM ROUTE SUPERVISOR Called and discussed with patient. Previously on [...] be evaluated. Lurdes Laughlin MD Internal Medicine/Pediatrics E SUPERVISOR Telephone Encounter - Lurdes Laughlin - 07/15/2010 4:14 PM ROUTE SUPERVISOR Attempted again to call pt and at home and on cell. Left a message on cell. Asked pt to call or willtry back tomorrow. Lurdes Laughlin MD Internal Medicine/Pediatrics E SUPERVISOR Telephone Encounter - Lurdes Laughlin - 07/15/2010 12:41 PM ROUTE SUPERVISOR Attempted to call patient to follow-up. Left a message at home. Will call back later. Lurdes Laughlin MD Internal Medicine/Pediatrics E SUPERVISOR Telephone Encounter - Lurdes Laughlin - 07/13/2010 3:38 PM ROUTE SUPERVISOR Agree with the above. Ok for trial off simvastatin, but should also talk with Neurologist. II will call Andrew on . Thanks! Lurdes Laughlin MD Internal Medicine/Pediatrics E SUPERVISOR Telephone Encounter - Maki Major - 07/13/2010 [...] be reached until . 's number is [phone]. Maame Major RN E SUPERVISOR documented in this encounter Plan of Treatment Not on filedocumented as of this encounter Visit Diagnoses Not on filedocumented in this encounter Care Teams Audiovisual Lead Technician Relationship Specialty Start Date End Date Lurdes Thomas MD PCP - General Internal Medicine 04/12/10 04/03/13 documented as of this encounter
--- OUTSIDE RECORDS SUMMARY | 2022-02-02 11:49 | XMS_ITS | Encounter Summary ---
:1955 Author Organization [facility] Address [address] [place] [address]. [place] [address] Care Team Providers Name Role Phone Lurdes Thomas MD Primary Care Provider Reason for Visit Reason Onset Date Comments Chronic Care Conference Provider Overview 12/29/2010 Encounter Details Date Type Department Care Team Description 12/29/2010 Telephone [facility] Lurdes Oh Chronic Care Conference 1440 [facility] MD [place] Provider Overview [place] [address] [facility] [phone] [address] (Wo rk) Social History Tobacco [...] on filedocumented in this encounter Care Teams Enterprise Software Engineer Relationship Specialty Start Date End Date Lurdes Thomas MD PCP - General Internal Medicine 04/12/10 04/03/13 documented as of this encounter
--- OUTSIDE RECORDS SUMMARY | 2022-02-02 11:49 | XMS_ITS | Encounter Summary ---
:1955 Author Organization [place] Address [address] [place] [address]. [place] [address] Care Team Providers Name Role Phone Lurdes Thomas MD Primary Care Provider [phone] Reason for Visit Reason Comments Physical Encounter Details Date Type Department Care Team Description 10/15/2010 Office Visit [facility] Lurdes Thomas Routine g eneral medical examination at a health care facility (Primary Dx); Uzair Laughlin MD Restless leg syndrome; 1440 [employer] Hyperlipidemia LDL goal < 13 0; [place] [address] [place] Erectile dysfunction; [phone] 8675 [facility] Parkinson disease (H); RD Screening for colon cancer; [place], [place] Screening for p rostate cancer; [address] Screening for diabetes mellitus Social History Tobacco [...] effects. All Histories reviewed and updated in [facility]. ROS: C: NEGATIVE for fever, chills, [...] Signature PSA 0.85 0 - 4 ug/L [facility] LAB Specimen Anatomical Collection Method Collection Time Receive d Time (Source) Location / / Volume Laterality Blood specimen 10/15/2010 8:32 AM 011 8:37 (specimen) CDT AM CDT Lurdes Thomas MD LAB - BLOOD ORDERABLES Performing Organization Address City/[facility] Code Phon e Number [facility] [address] [place] [address] [facility] Ferritin (10/15/2010 8:32 AM CDT) athologist Signature Ferritin 47 20 - 300 [facility] ng/mL CLINIC LAB Specimen Anatomical Collection Method Collection Time Receive d Time (Source) Location / / Volume Laterality Blood specimen 10/15/2010 8:32 AM 011 8:37 (specimen) CDT AM CDT Lurdes Thomas MD LAB - BLOOD ORDERABLES Performing Organization Address City/[facility] Phon e Number [facility] [address] [place] [address] [place] [facility] (ABNORMAL) Comprehensive metabolic panel (10/15/2010 8:32 AM CDT) P athologist Signature Sodium 142 133 - 144 [place] [facility] mmol/L CLINIC LAB Potassium 4.7 3.4 - 5.3 [facility] Chloride 103 94 - 109 [facility] mmol/L [facility] Carbon Dioxide 28 20 - 32 [place] [facility] mmol/L CLINIC LAB Anion Gap 11 6 - 17 [facility] mmol/L [facility] Comment: CORRECTED ON 10/18 AT 1537: PRE VIOUSLY REPORTED 10 Glucose 101 (H) 60 - 99 mg/dL [facility] LIN LAB Urea Nitrogen 21 7 - 30 mg/dL [facility] N [facility] Creatinine 0.99 0.66 - 1.25 mg/dL [facility] LAB GFR Estimate 79 >60 mL/min/1.7m2 [place] [facility] Comment: CORRECTED ON 10/18 AT 1537: PRE VIOUSLY REPORTED Not Calculated GFR Estimate If Black >90 >60 mL/min/1.7m2 F [facility] CORRECTED ON 10/18 AT 1537: PREVIOUSLY REPORTED Not Tres culated CLINIC LAB Calcium 9.0 8.5 - 10.4 mg/dL [facility] LAB Bilirubin Total 0.7 0.2 - 1.3 mg/dL [facility] Albumin 4.2 3.9 - 5.1 g/dL [facility] Comment: Reference range changed on 01/21. Protein Total 7.1 6.8 - 8.8 g/dL [facility] Comment: As of 07, reference range reflects plasma specimen type. Alkaline Phosphatase 77 40 - 150 U/L [facility] CLINIC LAB ALT 15 0 - 70 U/L [facility] CLIN IC LAB AST 31 0 - 55 U/L [facility] CLIN IC LAB Specimen Anatomical Collection Method Collection Time Receive d Time (Source) Location / / Volume Laterality Blood specimen 10/15/2010 8:32 AM 011 8:37 (specimen) CDT AM CDT Lurdes Thomas MD LAB - BLOOD ORDERABLES Performing Organization Address City/[facility] Phon e Number [facility] 14[address] [place] [address] [phone] [facility] LAB (ABNORMAL) Lipid Profile (10/15/2010 8:32 AM CDT) P athologist Signature Cholesterol 232 (H) 0 - 200 [facility] mg/dL CLINIC LAB Comment: LDL Cholesterol is the primary guide to therapy. The NCEP recommends further evaluation of: patients with cholesterol greater than 200 mg/dL if additional risk facto rs are present, cholesterol greater than 240 mg/dL, triglycerides greater than 1 50 mg/dL, or HDL less than 40 mg/dL. Triglycerides 95 0 - 150 mg/dL [facility] LAB HDL Cholesterol 56 40 - 110 mg/dL [facility] LDL Cholesterol Calculated 157 (H) 0 - 129 mg/dL [facility] Comment: LDL Cholesterol is the primary guide to therapy: LDL-cholesterol goal in high risk patients is <100 mg/dL and in very high risk patients is <70 mg/dL. VLDL-Cholesterol 19 0 - 30 mg/dL [facility] LAB Cholesterol/HDL Ratio 4.1 0.0 - 5.0 [facility] Comment: CORRECTED ON 10/18 AT 1537: PRE VIOUSLY REPORTED 4.2 Specimen Anatomical Collection Method Collection Time Receive d Time (Source) Location / / Volume Laterality Blood specimen 10/15/2010 8:32 AM 011 8:37 (specimen) CDT AM CDT Lurdes Thomas MD LAB - BLOOD ORDERABLES Performing Organization Address [facility] Phon e Number [facility] 14[address] [place] [address] [phone] [facility] documented in this encounter Visit [...] mellitus documented in this encounter Care Teams Police Liaison Officer Relationship Specialty Start Date End Date Lurdes Thomas MD PCP - General Internal Medicine 04/12/10 04/03/13 documented as of this encounter
--- OUTSIDE RECORDS SUMMARY | 2022-02-02 11:49 | XMS_ITS | Encounter Summary ---
:1955 Author Organization [facility] Address [address] [place] [address]. [place] [address] Care Team Providers Name Role Phone Lurdes Thomas MD Primary Care Provider Reason for Visit Reason Onset Date Comments Back Pain 07/20/2011 6 wk follow up Encounter Details Date Type Department Care Team Description 07/20/2011 Telephone [facility] Lurdes Oh Back Pain (6 wk follow 1440 [facility] MD [place] up) [place] [address] [facility] [phone] [address] (Wo rk) Social History [...] for patient to return call or send Piano Mediahart message on how he is doing with backpain. Kristina Brandt RN Telephone Encounter - Maki Major - 08/22/2011 3:28 PM CDT LOW BACK PAIN nursing triage 6 week follow-up: Maki Major [facility] Tele[facility] Encounter - Blanca Brandt - 07/20/2011 10:38 AM CST Please post pone and call patient for 6wk follow up of low back pain on or around 08/22/11. Kristina Brandt RN MILL OPERATOR FACING SAND documented in this encounter Plan of Treatment Not on filedocumented as of this encounter Visit Diagnoses Not on filedocumented in this encounter Care Teams Band Sawmill Operator Relationship Specialty Start Date End Date Lurdes Thomas MD PCP - General Internal Medicine 04/12/10 04/03/13 documented as of this encounter
--- OUTSIDE RECORDS SUMMARY | 2022-02-02 11:49 | XMS_ITS | Encounter Summary ---
:1955 Author Organization [place] Address [address] [place] [address]. [place] [address] Care Team Providers Name Role Phone Lurdes Thomas MD Primary Care Provider [phone] Reason for Visit Reason Onset Date Comments Back Pain 07/11/2011 3 day follow up Encounter Details Date Type Department Care Team Description 07/11/2011 Refill [facility] Lurdes Oh Back Pain ([address] [facility] MD [place] up) [place] [address] [facility] [phone] [address] (Wo rk) Social History [...] to correct posture; stop aggravating activities. ?? Dsie-tnf-auiperd pain medications for short term symptom control. [...] provider immediately. Medications for Pain Relief Recommended secf-ylh-wdqeoov non-steroidal anti-inflammatories: Ibuprofen (Advil, Motrin) 600 mg. [...] this several times a day. Developed by Lulu Published by Lulu. Last modified: 2008-06-29 Last reviewed: 2007-11-26 This content is reviewed periodically and is subject to change as new health information becomes available. The information is intended to inform and educate and is not a replacement for medical evaluation, advice, diagnosis or treatment by a healthcare professional. Adult Health Advisor 2009.1 Index Adult Health Advisor 2009.1 Credits ?? 2009 [facility] and/or its affiliates. All Rights Reserved. TION WORKER documented in this encounter Miscellaneous Notes Telephone [...] of plan and is agreeable. Blanca Brandt TION WORKER Telephone Encounter - Blanca Brandt - 07/11/2011 10:18 AM CST Called and spoke with patient and informed of message from Dr. Laughlin below. Mailed back exercises.Patient is wanting to hold off on physical therapy at this time. Kristina Brandt RN TION WORKER Telephone Encounter - Nathalia Galvan - 07/11/2011 9:50 AM CST Called and LM for pt with message below. Nathalia Galvan MA TION WORKER Telephone Encounter - Lurdes Laughlin MD - 07/11/2011 9:08 AM DONATION WORKER Ibuprofen or naproxen are ok. Flexeril has potential interaction with azilect. I changed muscle relaxant to methocarbamol (robaxin) and sent to pharmacy. This also may make him sleepy. Please let patient know. Thanks, Lurdes Laughlin MD Internal Medicine/Pediatrics TION WORKER Telephone Encounter - Blanca Brandt - 07/11/2011 8:32 AM CST Images from the original note were not included. Patient calls stating he was bending over to clean [employer] box yesterday morning and had back pain. He is leaving for [place] for work this afternoon. Wants to make [...] to correct posture; stop aggravating activities. ?? Pnzl-rpb-tjvabvi pain medications for short term symptom control. [...] provider immediately. Medications for Pain Relief Recommended lvvg-lzt-vloghgr non-steroidal anti-inflammatories: Ibuprofen (Advil, Motrin) 600 mg. [...] this several times a day. Developed by Lulu Published by Lulu. Last modified: 2008-06-29 Last reviewed: 2007-11-26 This content is reviewed periodically and is subject to change as new health information becomes available. The information is intended to inform and educate and is not a replacement for medical evaluation, advice, diagnosis or treatment by a healthcare professional. Adult Health Advisor 2009.1 Index Adult Health Advisor 2009.1 Credits ?? 2009 [facility] and/or its affiliates. All Rights Reserved. TION WORKER documented in this encounter Plan of Treatment Not on filedocumented as of this encounter Visit Diagnoses Diagnosis Back muscle spasm - Primary Other symptoms referable to back documented in this encounter Care Teams Merchandising Professor Relationship Specialty Start Date End Date Lurdes Thomas MD PCP - General Internal Medicine 04/12/10 04/03/13 documented as of this encounter
--- OUTSIDE RECORDS SUMMARY | 2022-02-02 11:49 | XMS_ITS | Encounter Summary ---
:1955 Author Organization [place] Address [address] [place] [address]. [place] [address] Care Team Providers Name Role Phone Lurdes Thomas MD Primary Care Provider [phone] Reason for Visit Reason Comments Hypertension labs Encounter Details Date Type Department Care Team Description 07/27/[address] [facility] Lurdes Thomas (Primary Dx); Uzair Laughlin MD Hyperlipidemia LDL goal < 130; 1440 [email or web address] Parkinson disease (H); [place] [address] [place] Screening for diabetes mellitus [phone] [address] [place] [address] Social History Tobacco Use Types [...] Comments Blood Pressure 124/70 07/27/2011 10:04 AM PRINCIPAL BIOINFORMATICS SPECIALIST Pulse 65 07/27/2011 10:04 AM PRINCIPAL BIOINFORMATICS SPECIALIST Temperature 36.3 ??C (97.3 ??F) 07/27/2011 10:04 AM PRINCIPAL BIOINFORMATICS SPECIALIST Respiratory Rate - - Oxygen Saturation - - Inhaled Oxygen Concentration - - Weight 87.7 kg (193 lb 6.4 oz) 07/27/2011 10:04 AM PRINCIPAL BIOINFORMATICS SPECIALIST Height 186.7 cm (6' 1.5) 07/27/2011 10:04 AM PRINCIPAL BIOINFORMATICS SPECIALIST Body Mass Index 25.17 07/27/2011 10:04 AM PRINCIPAL BIOINFORMATICS SPECIALIST documented in this encounter Patient Instructions Patient InstructionsLurdes Laughlin MD - 07/27/2011 10:35 AM PRINCIPAL BIOINFORMATICS SPECIALIST 1. Labs today: cholesterol, electrolytes, diabetes screen, liver function and kidney function 2. Consider checking blood pressure when get hot/flushed feeling 3. Keep a log of when it happens, how Parkinson's is that day, any increased medications, stress/anxiety level CIPAL BIOINFORMATICS SPECIALIST documented in this encounter Progress Notes [...] Parkinson's, HLP. Lurdes Laughlin MD Internal Medicine/Pediatrics CIPAL BIOINFORMATICS SPECIALIST documented in this encounter Nursing Notes [...] sults for this DIRECT LDL PANEL AM PRINCIPAL BIOINFORMATICS SPECIALIST goal < 130 procedure a re in the results section. COMPREHENSIVE Routine 07/27/2011 10:35 Hyperlipidemia LDL Resu lts for this METABOLIC PANEL AM PRINCIPAL BIOINFORMATICS SPECIALIST goal < 130 procedure are in Screening for diabetes the r esults mellitus section. documented in this encounter Results Comprehensive metabolic panel (07/27/2011 10:35 AM PRINCIPAL BIOINFORMATICS SPECIALIST) P athologist Signature Sodium 138 133 - 144 [facility] mmol/L [facility] Potassium 4.2 3.4 - 5.3 [facility] mmol/L [facility] Chloride 105 94 - 109 [facility] mmol/L [facility] Carbon Dioxide 21 20 - 32 [facility] mmol[facility]L [facility] Anion Gap 11 6 - 17 [facility] mmol/L [facility] Glucose 99 60 - 99 [facility] mg/dL [facility] Urea Nitrogen 18 7 - 30 [facility] mg/dL [facility] Creatinine 0.80 0.66 - [facility] 1.25 mg/dL [facility] GFR Estimate >90 >60 [facility] mL/min/1.7 [facility] m2 GFR Estimate If >90 >60 [facility] Black mL/min/1.7 [facility] m2 Calcium 9.3 8.5 - 10.4 [facility] mg/dL [facility] Bilirubin Total 0.7 0.2 - 1.3 [facility] mg[facility] Albumin 4.2 3.3 - 4.9 [facility] g/dL [facility] Comment: Reference range changed on 01/21. Protein Total 7.4 6.8 - 8.8 g/dL [facility] Comment: As of 07, reference range reflects plasma specimen type. Alkaline Phosphatase 87 40 - 150 U/L [facility] ALT 20 0 - 70 U/L [facility] AST 35 0 - 45 U/L [facility] CLIN [facility] LAB Specimen Anatomical Collection Method Collection Time Receive d Time (Source) Location / / Volume Laterality Blood specimen 07/27/2011 10:35 2 (specimen) AM PRINCIPAL BIOINFORMATICS SPECIALIST 10:38 AM PRINCIPAL BIOINFORMATICS SPECIALIST Lurdes Thomas MD LAB - BLOOD ORDERABLES Performing Organization Address City/State/ZIP Code Phon e Number [facility] [address] [place] [address] [facility] (ABNORMAL) Lipid panel reflex to direct LDL (07/27/2011 10:35 AM PRINCIPAL BIOINFORMATICS SPECIALIST) P athologist Signature Cholesterol 236 (H) 0 - 200 [facility] mg/dL CLINIC LAB Comment: LDL Cholesterol is the primary guide to therapy. The NCEP recommends further evaluation of: patients with cholesterol greater than 200 mg/dL if additional risk facto rs are present, cholesterol greater than 240 mg/dL, triglycerides greater than 1 50 mg/dL, or HDL less than 40 mg/dL. Triglycerides 121 0 - 150 mg/dL [facility] HDL Cholesterol 60 40 - 110 mg/dL [facility] LDL Cholesterol Calculated 152 (H) 0 - 129 mg/dL [facility] Comment: LDL Cholesterol is the primary guide to therapy: LDL-cholesterol goal in high risk patients is <100 mg/dL and in very high risk patients is <70 mg/dL. VLDL-Cholesterol 24 0 - 30 mg/dL [facility] Cholesterol/HDL Ratio 3.9 0.0 - 5.0 [facility] Specimen Anatomical Collection Method Collection Time Receive d Time (Source) Location / / Volume Laterality Blood specimen 07/27/2011 10:35 2 (specimen) AM PRINCIPAL BIOINFORMATICS SPECIALIST 10:38 AM PRINCIPAL BIOINFORMATICS SPECIALIST Lurdes Thomas MD LAB - BLOOD ORDERABLES Performing Organization Address City/State/ZIP Code Phon e Number [address] [address] [facility] documented in this encounter Visit Diagnoses Diagnosis Flushing - Primary Hyperlipidemia LDL goal < 130 Other and unspecified hyperlipidemia Parkinson disease (H) Paralysis agitans Screening for diabetes mellitus documented in this encounter Care Teams Drier Helper Relationship Specialty Start Date End Date Lurdes Thomas MD PCP - General Internal Medicine 04/12/10 04/03/13 documented as of this encounter
--- OUTSIDE RECORDS SUMMARY | 2022-02-02 11:49 | XMS_ITS | Encounter Summary ---
:1955 Author Organization [place] Address [address] [place] [address]. [place] [address] Care Team Providers Name Role Phone Lurdes Thomas MD Primary Care Provider [phone] Reason for Visit Reason Onset Date Comments Refill Request 06/08/2012 pravastatin Encounter Details Date Type Department Care Team Description 06/08/2012 Refill [facility] Lurdes Rojas Refill Request 1440 [facility] MD [place] (pravastatin) [place] [address] [facility] [phone] [address] (Wo rk) Social History [...] mailed to schedule appointment. Jeannine Waldron RN RACTS SPECIALIST Telephone Encounter - Jeannine Waldron - 06/08/2012 1:33 PM CST Med requested: pravastatin Last office visit: 07/27/11 BP Readings from Last 1 Encounters: 10/25/11 104/66 Last pertinent lab: CHOL 236 07/27/2011 HDL 60 07/27/2011 LDL 152 07/27/2011 TRIG 121 07/27/2011 CHOLHDLRATIO 3.9 07/27/2011 AST 35 07/27/2011 ALT 20 07/27/2011 Jeannine Waldron RN RACTS SPECIALIST documented in this encounter Plan of Treatment Not on filedocumented as of this encounter Visit Diagnoses Diagnosis Hyperlipidemia LDL goal < 130 - Primary Other and unspecified hyperlipidemia documented in this encounter Care Teams Deliver Driver Relationship Specialty Start Date End Date Martha, Lurdes Laughlin MD PCP - General Internal Medicine 04/12/10 04/03/13 documented as of this encounter
--- OUTSIDE RECORDS SUMMARY | 2022-02-02 11:49 | XMS_ITS | Encounter Summary ---
:1955 Author Organization [place] Address [address] [place] [address]. [place] [address] Care Team Providers Name Role Phone Lurdes Thomas MD Primary Care Provider [phone] Encounter Details Date Type Department Care Team Description 06/11/2014 Radiant Appointment [facility] Lurdes Thomas (shortness of Uzair Laughlin MD breath) [address] [place] [facility] [address] [address] [place] [phone] [place] [address] Social History Tobacco Use Types [...] AM SOB (shortness of Results for this ACADEMIC ADMINISTRATOR breath) procedure are i n the results section. documented in this encounter Results XR Chest 2 Views (06/11/2014 8:52 AM ACADEMIC ADMINISTRATOR) Anatomical Region Laterality Modality Chest Computed Radiography Specimen (Source) Anatomical Location Collection Method / Collectio n Time Received Time / Laterality Volume Impressions 06/11/2014 9:24 AM ACADEMIC ADMINISTRATOR IMPRESSION: ??Negative. APOLONIA PACE MD Narrative 06/11/2014 9:24 AM ACADEMIC ADMINISTRATOR XR CHEST 2 VW ??06/11/2014 8:52 AM HISTORY: ??Shortness of breath. COMPARISON: ??None. Procedure Note Aploonia Pace MD - 5 XR CHEST 2 VW 06/11/2014 8:52 AM HISTORY: Shortness of breath. COMPARISON: None. IMPRESSION IMPRESSION: Negative. APOLONIA PACE MD Lurdes Thomas MD IMG DIAGNOSTIC IMAGING ORDER HECTOR documented in this encounter Visit Diagnoses Diagnosis SOB (shortness of breath) Shortness of breath documented in this encounter Care Teams Roast Master Relationship Specialty Start Date End Date Lurdes Thomas MD PCP - General Internal Medicine 06/11/14 12/16/20 documented as of this encounter
--- OUTSIDE RECORDS SUMMARY | 2022-02-02 11:50 | XMS_ITS | Encounter Summary ---
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
--- OUTSIDE RECORDS SUMMARY | 2022-02-02 11:50 | XMS_ITS | Encounter Summary ---
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 Call [facility] at . We suggest you call your health insurance company about your coverage an d benefits for this appointment. Encounter Details Date Type Department Care Team Description 11/13/2020 Office Visit Maria Esther Mckeon on's disease (HRC) (Primary Dx); [facility] MD Prem Dysphagia, unspecified type; Neurology [address] [place] [address] Dyskinesia due to Parkinson' s disease (HRC); [address] [place] [address] [place], [place] [phone] [id number] Social History Tobacco Use Types Packs/Day Years [...] the endoscopy isplanned. If all those things returns processor to be okay then I would have [...] we will arrange for programming session at [place]. Next 6. Otherwise follow-up with me in [...] fall documented in this encounter Care Teams Conveyor Mechanic Relationship Specialty Start Date End Date Samantha Stauffer MD PCP - General Family Practice 12/12/191999 [place] [address] documented as of this encounter
--- OUTSIDE RECORDS SUMMARY | 2022-02-02 11:50 | XMS_ITS | Clinical Summary ---
:1955 Author Organization [facility] Address [address] [place] [address] Care Team Providers Name Role Phone Samantha Stauffer MD Primary Care Provider [phone] Source Comments You are receiving this document [...] for each transition of care or referral. [facility] Allergies No known active allergies Medications Medication [...] this topic Medical Devices Implanted Type Area Home Lending Officer Device Shelf Model / Identifier Expiration Serial / Date Lot [employer] - [id number] DEVICE Right: Medtronic - 2020 [id number] / Implanted: Qty: 1 on 12/12/2019 by Jorge L Kaiser MD at [facility] CHEST Neurological [id number] / NA Insurance Payer Benefit Plan / Subscriber ID Effective Dates Phone Addre ss Type Group MEDICARE MEDICARE PART [id number] 2018-Presfederica [phone] Medicare A t 27 BCBS BCBS OUT OF [id number] 2017-Ignacio [address] [address] Commercial [place] [phone] [address] (Home) [place] [address] Andrew Pang Personal/Famil Self 1955 [phone] [address] y (Home) [place] [address] Andrew Pang Personal/Famil Self 1955 [address] (Home) [place] [address] Advance Directives Latest Code Status on File Code Status Date Activated Date Inactivated Comments Full Code 12/12/2019 8:30 AM 12/12/2019 9:48 PM Care Teams Laborer Dairy Farm Relationship Specialty Start Date End Date Samantha Stauffer MD PCP - General Family Practice 12/12/191999 [place] [address]
--- OUTSIDE RECORDS SUMMARY | 2022-02-02 11:50 | XMS_ITS | Encounter Summary ---
:1955 Author Organization [facility] Address [address] [place] [address] Care Team Providers Name Role Phone Samantha Stauffer MD Primary Care Provider [phone] Reason for Referral Procedure/Equipment (Routine) - Incomplete Specialty Diagnoses / Procedures Referred By Contact Refer red To Contact Diagnoses Parkinson's disease (HRC) Dysphagia, unspecified type ParashosMaria Esther MD Procedures [place] Video Swallow Study [address] [place], [place] [address] Referral ID Status Reason Start Date Expiration Date Visits V isits Requested Authorized [id number] Incomplete 11/04/2020 02/03/2022 1 1 Therapies (Routine) - Closed Specialty Diagnoses / Procedures Referred By Contact Refer red To Contact Diagnoses Parkinson's disease (HRC) Dysphagia, unspecified type ParashoMaria Esther jacques MD [address] [place], [place] [address] Referral ID Status Reason Start Date Expiration Date Visits Requ ested Visits Authorized [id number] Closed 11/04/2020 11/04/2021 1 1 Scheduling Instructions Your provider has recommended an appoint ment with a [facility] Speech Therapist. Please call for your appointment you may call [facility] at [phone]. We suggest you call your [facility] insurance company about your coverage and benefits for this appointment. Reason for Visit Reason Comments Orders Needed [place] VIDEO SWALLOW STUDY Encounter Details Date Type Department Care Team Description 11/04/2020 Telephone [facility] Maria Esther Phan Orders Needed ([facility] MD Jorden VIDEO SWALLOW STUDY ) Neurology [address] [facility] [address] [place] [address] [place], [place] [phone] (Wo rk) Social History Tobacco Use Types Packs/Day Years Used Date Smoking Tobacco: Never Smokeless Tobacco: Never Alcohol Use Standard Drinks/Week Comments Yes 0 (1 standard drink = 0.6 oz pure alcoho l) Sex Assigned at Date Recorded Not on file documented as of this encounter Nursing Notes Maria Esther hPan MD - 11/04/2020 3:38 PM CDT Order signed. Chloé Denny - 11/04/2020 3:06 PM CDT RN spoke with Pat, pt's spouse spoke with outpatient rehab svcs to schedule swallow study - They are requesting the actual order: [place] Video Swallow Study (like the one he had done Jun). RN can see the GROUND INSTRUCTOR ADVANCED order that requests video swallow study (with radiology and speech, but they need the actual order along with the GROUND INSTRUCTOR ADVANCED order. The order is pended. Dr. Phan [...] CDT EXAM: FL VIDEO SWALLOW STUDY LOCATION: [facility] DATE/TIME: 11/19/2020 11:56 AM INDICATION: Difficulty swallowing. [...] LOCATION: [facility] DATE/TIME: 11/19/2020 11:56 AM INDICATION: Difficulty swallowing. [...] type documented in this encounter Care Teams Print Manager Relationship Specialty Start Date End Date Samantha Stauffer MD PCP - General Family Practice 12/12/191999 [place] [address] documented as of this encounter
--- OUTSIDE RECORDS SUMMARY | 2022-02-02 11:50 | XMS_ITS | Encounter Summary ---
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) At risk for falling Maria Esther Phan MD [address] [place], [place] [address] Referral ID Status Reason Start Date Expiration Date Visits Requ ested Visits Authorized [id number] Closed 11/13/2020 11/13/2021 1 1 Encounter Details Date Type Department Care Team Description 12/04/2020 Therapy [facility] Carlos Cartwright, Prema n's disease (HRC) (Primary Dx); [facility] PT Impaired functional mobility, balance, g ait, and endurance Physical Therapy [address] [address] [phone] Social History Tobacco Use Types Packs/Day Years [...] discussion mentioned that they live close to [place] and it would be very difficult to attend physical therapy at this facility on a weekly to bi-weekly basis. After long discussion with patient and his , decision had been made for them to call [facility] and request a physical therapist that is certified in the [employer] program that could effectively treat patient with less stress on family (reducing driving). Did educate patient on different Parkinson's classes in the community, our [facility] PD programs and on [employer] BIG program. Patient and his were satisfied [...] Priority Associated Diagnoses Order S [facility] Physical Therapy Referral Routine Parkinson's dis ease (HRC) Ordered: 11/13/2020 Dysphagia, unspe cified type Dyskinesia due to Parkinson' s disease (HRC) At risk for falling documented as of this encounter Visit Diagnoses Diagnosis Parkinson's disease (HRC) - Primary Impaired functional mobility, balance, g ait, and endurance documented in this encounter Care Teams Apprentice Technician Relationship Specialty Start Date End Date Samantha Stauffer MD PCP - General Family Practice 12/12/191999 [place] [address] documented as of this encounter
--- OUTSIDE RECORDS SUMMARY | 2022-02-02 11:50 | XMS_ITS | Encounter Summary ---
:1955 Author Organization [facility] Address [address] [place] [address] Care Team Providers Name Role Phone Samantha Stauffer MD Primary Care Provider Encounter Details Date Type Department Care Team Description 02/09/2021 Notes/Orders [facility] Speech Therap y [address] [place] [id number] [place] [address] [phone] Social History Tobacco Use Types Packs/Day Years Used Date Smoking Tobacco: Never Smokeless Tobacco: Never Alcohol Use Standard Drinks/Week Comments Not Currently 0 (1 standard drink = 0.6 oz pure alcoho l) Sex Assigned at Date Recorded Not on file documented as of this encounter Progress Notes [facility] - 02/09/2021 10:30 AM CDT SPEECH THERAPY DISCHARGE NOTE Andrew Pang [phone] Payor: [facility] / Plan: [facility] OUT OF STATE / Product Type: [...] filedocumented in this encounter Care Teams Patient Financial Counselor Relationship Specialty Start Date End Date Samantha Stauffer MD PCP - General Family Practice 12/12/191999 [place] [address] documented as of this encounter
--- OUTSIDE RECORDS SUMMARY | 2022-02-02 11:50 | XMS_ITS | Encounter Summary ---
:1955 Author Organization [facility] Address [address] [address] Care Team Providers Name Role Phone Samantha Stauffer MD Primary Care Provider [phone] Reason for Visit Auth/Cert Specialty Diagnoses / Procedures Referred By Contact Refer red To Contact Diagnoses Parkinson's disease (HRC) Procedures RIGHT DEEP BRAIN STIMULATOR GENERATOR REPLACEMENT Referral ID Status Reason Start Date Expiration Date Visits Requ ested Visits Authorized [id number] 1 1 Encounter Details Date Type Department Care Team Description 12/12/2019 Anesthesia Event Yarsani Operating Migel Portillo MD [address] [place] [address] [facility] Nasim Armstrong MD [address] [place] [address] [place] [address] Anesthesia Record Procedure Summary Procedure [...] Portillo MD - 12/12/2019 11:16 AM CDT [facility] Anesthesia Post-op Note Patient: Andrew Chalberg [...] Armstrong MD - 12/12/2019 7:16 AM CDT [facility] Anesthesia Pre-op Evaluation Procedure: Procedure(s): Right [...] benefits and alternatives discussed with: Patient or Spot Checker agree tothe anesthesia treatment plan and Patient. [...] mL/hr documented in this encounter Care Teams General Utility Machine Operator Relationship Specialty Start Date End Date Samantha Stauffer MD PCP - General Family Practice 12/12/191999 [place] [address] documented as of this encounter
--- OUTSIDE RECORDS SUMMARY | 2022-02-02 11:50 | XMS_ITS | Encounter Summary ---
:1955 Author Organization [facility] Address [address], [place] [address] Care Team Providers Name Role Phone Samantha Stauffer MD Primary Care Provider Encounter Details Date Type Department Care Team Description 12/21/2020 [facility] Princess Phan, [place] [facility] [address] [place] [address] [place] [address] [phone] (Wo rk) Social History Tobacco Use Types [...] info edited w/ current number : ph. [phone]) Natasha reports that since decreasing RYTARY to [...] has an appt with [facility] [place] tomorrow (12/25) as well as a f/u [...] disconnected. Number is disconnected. RN sent a NetEffect message encouraging them to give us a call. Chloé Denny 12/22/2020, 4:19 PM Chloé Denny - 12/21/2020 3:55 PM CDT RN attempted to call Natasha back 2 x @ . [phone] and line was disconnected (message states destination not assigned). Then called . [phone], no answer. [facility] Chloé Denny 12/21/2020, 3:57 PM Maria [...] besides his Parkinson's. Maria Esther Phan MD Crsithian Dueñas - 12/21/2020 9:01 AM CDT Natasha [...] filedocumented in this encounter Care Teams Cloth Packer Relationship Specialty Start Date End Date Samantha Stauffer MD PCP - General Family Practice 12/12/191999 [place] [address] documented as of this encounter
--- OUTSIDE RECORDS SUMMARY | 2022-02-02 11:50 | XMS_ITS | Encounter Summary ---
:1955 Author Organization [facility] Address [address] [place] [address] Care Team Providers Name Role Phone Samantha Stauffer MD Primary Care Provider [phone] Reason for Visit Reason Comments Post-Op Check Encounter Details Date Type Department Care Team Description 01/24/2020 [facility] 3931 Divina Kaiser MD Parkinson's disease Neurosurgery 3931 [facility] (Primary Dx) [facility] [address] [phone] Social History Tobacco Use Types Packs/Day Years [...] Primary documented in this encounter Care Teams Cellophane Tester Relationship Specialty Start Date End Date Samantha Stauffer MD PCP - General Family Practice 12/12/191999 [place] [address] documented as of this encounter
--- OUTSIDE RECORDS SUMMARY | 2022-02-02 11:50 | XMS_ITS | Encounter Summary ---
:1955 Author [facility] Address [address], [place] [address] Care Team Providers Name Role Phone Samantha Stauffer MD Primary Care Provider Reason for Referral Medication Prior Authorization (Routine) - Authorized Specialty Diagnoses / Procedures Referred By Contact Refer red To Contact Maria Esther Phan MD [address] [place], [place] [address] Referral ID Status Reason Start Date Expiration Date Visits V isits Requested Authorized [id number] Authorized 1 1 ITAL MEDICINE DIRECTOR Reason for Visit Reason Onset Date Comments Refill 07/15/2020 Amantadine HCl ER (G OCOVRI) 137 MG CP24 Encounter Details Date Type Department Care Team Description 07/15/2020 [facility] (Amantadine HCl Neuroscience Center MD Prem ER (GOCOVRI) 137 MG Neurology 3931 [facility] CP24) [address] [place] [address] [phone] (Wo rk) Social History Tobacco Use Types [...] at bedtime. Sheldon Mays 07/15/2020, 8:49 AM ITAL MEDICINE DIRECTOR documented in this encounter Plan of Treatment Not on filedocumented as of this encounter Visit Diagnoses Not on filedocumented in this encounter Care Teams Teacher [employer] Relationship Specialty Start Date End Date Samantha Stauffer MD PCP - General Family Practice 12/12/191999 [place] [address] documented as of this encounter
--- OUTSIDE RECORDS SUMMARY | 2022-02-02 11:50 | XMS_ITS | Encounter Summary ---
:1955 Author Organization [facility] Address [address] [place] [address] Care Team Providers Name Role Phone Samantha Stauffer MD Primary Care Provider [phone] Reason for Visit Reason Comments Prior Authorization Request Amantadine HCl ER (GOCOVRI ) 137 MG CP24 Encounter Details Date Type Department Care Team Description 10/14[facility] MD Prem Request (Amantadine Neurology [address] HCl ER (GOCOVRI) [address] [place] CP24) [place] [address] [place], [place] [phone] Social History Tobacco Use Types Packs/Day Years Used Date Smoking Tobacco: Never Smokeless Tobacco: Never Alcohol Use Standard Drinks/Week Comments Not Currently 0 (1 standard drink = 0.6 oz pure alcoho l) Sex Assigned at Date Recorded Not on file documented as of this encounter Nursing Notes Chloé Denny - 10/14/2021 2:35 PM CDT Approved Prior authorization approved Payer: [facility] CaseId:[id number];Status:Approved;Review Type:Prior Auth;Coverage Start Date:09/14/2021;Coverage End Date:10/14/2022; Approval Details Authorized from September 14, 2021 to October 14, 2022 Chloé Denny - 10/14/2021 1:09 PM CDT [facility]PA [facility]. Chloé Denny 10/14/2021, 1:09 PM Sylvia Burgess - 10/14/2021 9:10 AM CDT There is an approval through October 27 Recd fax from [employer], Please initiate new PA- Amantadine HCl ER (GOCOVRI) 137 MG CP24 Please see the providers right fax folder to review the fax for this TE. Sylvia Burgess 10/14/2021, 9:10 AM documented in this encounter Plan of Treatment Not on filedocumented as of this encounter Visit Diagnoses Not on filedocumented in this encounter Care Teams Acetylene Gas Compressor Relationship Specialty Start Date End Date Samantha Stauffer MD PCP - General Family Practice 12/12/191999 [place] [address] documented as of this encounter
--- OUTSIDE RECORDS SUMMARY | 2022-02-02 11:50 | XMS_ITS | Encounter Summary ---
:1955 Author Organization [facility] Address [address] [place] [address] Care Team Providers Name Role Phone Samantha Stauffer MD Primary Care Provider [phone] Reason for Visit Reason Comments QUESTIONS, GENERAL Battery Encounter Details Date Type Department Care Team Description 12/07/2020 Telephone [facility] Brower, GENERAL [facility] MD Prem (Battery ) Neurology 3931 [facility] [address] [place] [address] [place], [place] [phone] (Wo rk) Social History Tobacco Use Types Packs/Day Years Used Date Smoking Tobacco: Never Smokeless Tobacco: Never Alcohol Use Standard Drinks/Week Comments Not Currently 0 (1 standard drink = 0.6 oz pure alcoho l) Sex Assigned at Date Recorded Not on file documented as of this encounter Nursing Notes Chloé Denny - 12/09/2020 3:53 PM CDT RN called pt's spouse back (ph. [phone]) to relay Dr. Phan' recommendations. Verbalizes understanding and they will adjust pt's RYTARY to tid first. RN also sent recommendations via [employer] message. Encouraged to call back with any [...] filedocumented in this encounter Care Teams Marketing Communications Associate Relationship Specialty Start Date End Date Samantha Stauffer MD PCP - General Family Practice 12/12/191999 [place] [address] documented as of this encounter
--- OUTSIDE RECORDS SUMMARY | 2022-02-02 11:50 | XMS_ITS | Encounter Summary ---
:1955 Author Organization [facility] Address [address], [place] [address] Care Team Providers Name Role Phone Samantha Stauffer MD Primary Care Provider [phone] Reason for Visit Reason Comments Refill Encounter Details Date Type Department Care Team Description 11/01/2020 Refill [facility] Maria Esther Reis MD Refill Center Neurology 3931 [facility] [address] [facility] [place] [address] [place] [address] [phone] Social History Tobacco Use Types Packs/Day Years [...] filedocumented in this encounter Care Teams Digital Camera Technician Relationship Specialty Start Date End Date Samantha Stauffer MD PCP - General Family Practice 12/12/191999 [place] [address] documented as of this encounter
--- OUTSIDE RECORDS SUMMARY | 2022-02-02 11:50 | XMS_ITS | Encounter Summary ---
:1955 Author Organization [facility] Address [address] [place] [address] Care Team Providers Name Role Phone Samantha Stauffer MD Primary Care Provider [phone] Reason for Visit Reason Comments Prior Authorization Request Amantadine HCl ER (GOCOVRI ) 137 MG CP24 Encounter Details Date Type Department Care Team Description 10/27/2020 [facility] Prior A uthor[facility] MD Prem Request (Amantadine Neurology [address] HCl ER (GOCOVRI) [address] MG CP24) [place] [address] [place], [place] [phone] [phone] Social History Tobacco Use Types Packs/Day Years Used Date Smoking Tobacco: Never Smokeless Tobacco: Never Alcohol Use Standard Drinks/Week Comments Yes 0 (1 standard drink = 0.6 oz pure alcoho l) Sex Assigned at Date Recorded Not on file documented as of this encounter Nursing Notes Chloé Denny - 11/06/2020 8:37 AM CDT Prior authorization approved -N[place] Payer: [facility] CaseId:[id number];Status:Approved;Review Type:Prior Auth;Coverage Start Date:09/27/2020;Coverage End Date:10/27/2021; RN [...] on filedocumented in this encounter Care Teams Sewer And Cutter Finger Buff Material Relationship Specialty Start Date End Date Samantha Stauffer MD PCP - General Family Practice 12/12/191999 [place] [address] documented as of this encounter
--- OUTSIDE RECORDS SUMMARY | 2022-02-02 11:50 | XMS_ITS | Encounter Summary ---
:1955 Author Organization [facility] Address [address] [place] [address] Care Team Providers Name Role Phone Samantha Stauffer MD Primary Care Provider [phone] Reason for Referral Therapies (Routine) - Closed Specialty Diagnoses / Procedures Referred By Contact Refer red To Contact Diagnoses Parkinson's disease (HRC) Dysphagia, unspecified type Maria Esther Phan MD [address] [place], [place] [address] Referral ID Status Reason Start Date Expiration Date Visits Requ ested Visits Authorized [id number] Closed 10/28/2020 10/28/[phone] Scheduling Instructions Your provider has recommended an appoint ment with a [facility] Speech Therapist. Please call for your appointment you may call [facility] at [phone]. We suggest you call your [facility] insurance company about your coverage and benefits for this appointment. Reason for Visit Reason Comments Pain Stomach and trouble swallowi ng Encounter Details Date Type Department Care Team Description 10/28/2020 [facility] MD Prem trouble swallowing) Neurology Counts include [facility] beds at the [facility] [address] [place], [place] [phone] (Wo rk) Social History Tobacco Use Types [...] call and schedule the swallow study (ph. [phone]) Spouse reports that pt went to see a provider at [facility] last (10/29) and was prescribed generic Prilosec. This has been helpful thus far. They also saw pt's PCP this morning (11/04) who is recommending a GI consult. Dr. Phan: Do you have a preferred online facilitator you would recommend to someone who has [...] (HRC) documented in this encounter Care Teams Registration Officer Relationship Specialty Start Date End Date Samantha Stauffer MD PCP - General Family Practice 12/12/191999 [place] [id number] documented as of this encounter
--- OUTSIDE RECORDS SUMMARY | 2022-02-02 11:50 | XMS_ITS | Encounter Summary ---
:1955 Author Organization [facility] Address [address] [place] [address] Care Team Providers Name Role Phone Samantha Stauffer MD Primary Care Provider [phone] Encounter Details Date Type Department Care Team Description 07/14/2021 Telephone [facility] Princess Phan, Center Neurology [address] [place] [address] [place] [address] [phone] (Wo rk) Social History Tobacco Use Types [...] verbalizes understanding. Chloé Denny 07/16/2021, 5:09 PM NE FARMER Doris Slaughter RN - 07/16/2021 4:43 PM CST RN looked at RX, PA approval through 10/2021. Doris Slaughter RN 07/16/2021, 4:44 PM NE FARMER Karin Dill - 07/16/2021 4:39 PM CST Pt calling stating they need a PA for this rx, please advise, thanks! Karin Dill 07/16/2021, 4:40 PM NE FARMER Chloé Denny - 07/16/2021 2:05 PM CST Prescription form not necessary. RN spoke with pharmacy this morning and gave verbal. Sheldon Merlos - 07/16/2021 1:06 PM CST Images from the original note were not included. Recd universal prescription/ pharmacy intake [facility] Placed in providers right fax Sheldon Mays 07/16/2021, 1:07 PM NE FARMER Chloé Denny - 07/16/2021 9:31 AM CST RN called [facility] (ph. [phone]) to give additional information per pt request [...] please call Cristhian Dueñas 07/14/2021, 12:13 PM NE FARMER documented in this encounter Plan of Treatment Not on filedocumented as of this encounter Visit Diagnoses Not on filedocumented in this encounter Care Teams Pit Worker Power Shovel Relationship Specialty Start Date End Date Samantha Stauffer MD PCP - General Family Practice 12/12/191999 [place] [address] documented as of this encounter
--- OUTSIDE RECORDS SUMMARY | 2022-02-02 11:50 | XMS_ITS | Encounter Summary ---
:1955 Author [facility] Address [address] [place] [address] Care Team Providers Name Role Phone Samantha Stauffer MD Primary Care Provider [phone] Reason for Visit Reason Comments Medication Questions Encounter Details Date Type Department Care Team Description 12/30/2020 Telephone [facility] Esther Walker Medicat ion Questions Neuroscience Center MD Prem Neurology 3931 [facility] [address] [facility] [place] [address] [place], [place] [phone] (Wo rk) Social History Tobacco Use Types [...] parkinson's. Dr. Thompson can be reached at [phone]. Thank you documented in this encounter Plan of Treatment Not on filedocumented as of this encounter Visit Diagnoses Not on filedocumented in this encounter Care Teams Cloud Operations Engineer Relationship Specialty Start Date End Date Samantha Stauffer MD PCP - General Family Practice 12/12/191999 [place] [address] documented as of this encounter
--- OUTSIDE RECORDS SUMMARY | 2022-02-02 11:50 | XMS_ITS | Encounter Summary ---
:1955 Author Organization [facility] Address [address] [place] [address] [place] [address] Care Team Providers Name Role Phone Samantha Stauffer MD Primary Care Provider [phone] Reason for Visit Auth/Cert Specialty Diagnoses / Procedures Referred By Contact Refer red To Contact Diagnoses Parkinson's disease (HRC) Procedures RIGHT DEEP BRAIN STIMULATOR GENERATOR REPLACEMENT Referral ID Status Reason Start Date Expiration Date Visits Requ ested Visits Authorized [id number] 1 1 Encounter Details Date Type Department Care Team Description 12/12/2019 Surgery [facility]od[facility] Operating Jorge L Kaiser MD RIGHT DEEP BRAIN Room 3931 [facility] STIMULATOR GENERATOR [address] [place] [address] [phone] Social History Tobacco Use Types Packs/Day Years [...] upper arm muscles. This includes pushing a manual lathe operator or vacuum and mopping floors. It [...] can you learn more? 1. Go to [email or web address] Operating Corary or Promise[employer]/Lung TherapeuticsraRevolutionary Concepts. 2. Enter D150 in the search box. Current as of: April 09, 2019?Content Version: 12.4 ?? [employer]ang. Care instructions adapted under license by your healthcare professional. If you have questions abouta medical condition or this instruction, always ask your healthcare professional. [employer] disclaims any warranty or liability for your [...] documented as of this encounter Progress Notes uRbina Gomez RN - 12/12/2019 9:49 AM CDT [...] on Keflex including possible side effects. Prescriptions [facility] in [place]. Belongings checklist reviewed with patient and belongings [...] Kaiser MD - 12/12/2019 8:17 AM CDT [facility] Operative Note Surgery Date: 12/12/2019 Primary Surgeon: [...] 8-10 minutes) Implants: Activa PC Model number [id number] Serial No: [id number] Post-op Diagnosis: Parkinson's Disease, Right Infraclavicular IPG [...] - Rapid (COVID-19) (12/12/2019 6:06 AM CDT) [facility] Method Time Signature COVID-19 Not Not 12/12/2019 [facility] Interpretation Detected Detected 7:04 AM CDT LABORATORY Specimen Anatomical Collection Method Collection Time Receive d Time (Source) Location / / Volume Laterality Swab (Source Non-blood 12/12/2019 6:06 AM 0 6:09 Required) Collection / CDT AM CDT Unknown Narrative [facility] - 12/12/2019 7:04 A M CDT Test performed by real-time PCR. This test has been authorized by the FDA under an Emergency Use Authorization (EUA) for use by authorized laboratories. Jorge L Kaiser MD LAB_1 Performing Organization Address City/State/ZIP Code Phon e Number [facility] [address] [place] [address] documented in this encounter Visit Diagnoses Diagnosis Parkinson's disease (HRC) - Primary Parkinson's disease (HRC) documented in this encounter Admitting Diagnoses Diagnosis Parkinson's disease (HRC) documented in this encounter Administered Medications Inactive Administered Medications - up to 3 most recent administrations Medication Order MAR Action Action Date Dose Rate Site bupivacaine-epinephrine PF Given 12/12/2019 7:58 AM CDT 20 mL (SENSORCAINE) 0.25% -1:[id number] injection ONCE PRN, Starting on Stacey 12/12/19 [...] (COMPLETED) 0735 (Given - Provider: Luis Anaya, SENIOR VICE PRESIDENT & GENERAL COUNSEL, FRANCHISE CONSULTANT) 2 g, Intravenous, Administer over 30 [...] (Anesthesia Fluid - Provider: Luis Anaya APRN, FRANCHISE CONSULTANT) 25 mL/hr, Intravenous, at 25 mL/hr, CONT INUOUS, Starting Stacey 12/12/19 at 0615, Administer on all preop surgery patients, ages 12 and older, unless specified differently in the Protocol for Preop Initiation of IV fluids Order Set., Pre-op NaCl 0.9%-KCl 20 mEq/liter infusion 0900 (Due) Intravenous, at 75 mL/hr, CONTINUOUS, Starting [facility] 12/12/19 at 09 00, Post-op PRN Medication Order 12/10/2019 12/11/2019 12/12/2019 acetaminophen (TYLENOL) tablet 650 mg 650 mg, Oral, Q4H PRN, Other, Mild Pain (pain score 1-4), Starting [facility] 12/12/19 at 0830, Every 4 hours while [...] is ineffective., Post-op bupivacaine-epinephrine PF (SENSORCAINE) 0.25% -1:[id number] injecti on 0758 (Given - Provider: Jorge L Kaiser MD) ONCE PRN, Starting [facility] 12/12/19 at 0758, Intra-op gentamicin 80 mg-clindamycin 900 mg in s odium chloride 1000 mL (DABS) irrigation solution 0802 (Given - Provid er: Jorge L Kaiser MD) ONCE PRN, Starting [facility] 12/12/19 at 0802, Intra-op HYDROcodone-acetaminophen (NORCO) 5-325 [...] time as ORAL opioids. HOLD if on PRESIDENT AND CHIEF COMMERCIAL OFFICER., Post-op lidocaine (UROJET) 2 % prefilled [...] time as IV opioids. HOLD if on PRESIDENT AND CHIEF COMMERCIAL OFFICER., Post-op senna (SENOKOT) tablet 1-2 Tablet 1-2 Tablet, Oral, BID PRN, Other, Modera te Constipation, Starting Stacey 12/12/19 at 0830, Hold for loose stools, Post-op documented in this encounter Care Teams Farm Manager Relationship Specialty Start Date End Date Samantha Stuaffer MD PCP - General Family Practice 12/12/191999 [place] [address] documented as of this encounter
--- OUTSIDE RECORDS SUMMARY | 2022-02-02 11:50 | XMS_ITS | Encounter Summary ---
:1955 Author Organization [facility] Address [address], [place] [address] Care Team Providers Name Role Phone Samantha Stauffer MD Primary Care Provider [phone] Reason for Visit Procedure/Equipment (Routine) - Incomplete Specialty Diagnoses / Procedures Referred By Contact Refer red To Contact Diagnoses Parkinson's disease ([facility]) Dysphagia, unspecified type Sylvester, Maria Esther Amaro MD Procedures [place] Video Swallow Study 3931 [place], [place] [address] Referral ID Status Reason Start Date Expiration Date Visits V isits Requested Authorized [id number] Incomplete 11/04/2020 02/03/2022 1 1 Encounter Details Date Type Department Care Team Description 11/19/2020 Ancillary [facility], Pre-procedura l laboratory examination (Primary Dx); Procedure Neuroscience Center Maria Esther Amaro MD Parkinson's disease ([facility]); Radiology Fluoro [address] [place] Dysphagia, unspecified type [address] [place] [address] [place], [place] [phone] Social History Tobacco Use Types Packs/Day Years [...] CDT EXAM: [place] VIDEO SWALLOW STUDY LOCATION: [facility] DATE/TIME: 11/19/2020 11:56 AM INDICATION: Difficulty [...] original. EXAM: [place] VIDEO SWALLOW STUDY LOCATION: [facility] DATE/TIME: 11/19/2020 11:56 AM INDICATION: Difficulty [...] dose documented in this encounter Care Teams Customer Resolution Specialist Relationship Specialty Start Date End Date Samantha Stauffer MD PCP - General Family Practice 12/12/191999 [place] [address] documented as of this encounter
--- OUTSIDE RECORDS SUMMARY | 2022-02-02 11:50 | XMS_ITS | Encounter Summary ---
:1955 Author Organization [facility] Address [address] [place] [address] Care Team Providers Name Role Phone Samantha Stauffer MD Primary Care Provider [phone] Reason for Visit Auth/Cert Specialty Diagnoses / Procedures Referred By Contact Refer red To Contact Diagnoses Parkinson's disease (HRC) Procedures RIGHT DEEP BRAIN STIMULATOR GENERATOR REPLACEMENT Referral ID Status Reason Start Date Expiration Date Visits Requ ested Visits Authorized [id number] 1 1 Encounter Details Date Type Department Care Team Description 12/12/2019 Hospital Encounter Faith Operating Clementine Kaiser MD Parkinson's disease Room [address] [place] ([facility]) [address] [place] [address] [place] [address] [phone] Social History Tobacco Use Types Packs/Day Years [...] upper arm muscles. This includes pushing a beach attendant or vacuum and mopping floors. It also [...] can you learn more? 1. Go to [email or web address] or [email or web address] Energy. 2. Enter D150 in the search box. Current as of: April 09, 2019?Content Version: 12.4 ?? [employer]. Care instructions adapted under license by your healthcare professional. If you have questions abouta medical condition or this instruction, always ask your healthcare professional. [employer] disclaims any warranty or liability for your [...] on Keflex including possible side effects. Prescriptions [facility] in [place]. Belongings checklist reviewed with patient and belongings [...] Kaiser MD - 12/12/2019 8:17 AM CDT [facility] Operative Note Surgery Date: 12/12/2019 Primary Surgeon: [...] 8-10 minutes) Implants: Activa PC Model number [id number] Serial No: [id number] Post-op Diagnosis: Parkinson's Disease, Right Infraclavicular IPG [...] - Rapid (COVID-19) (12/12/2019 6:06 AM CDT) [facility] Method Time Signature COVID-19 Not Not 12/12/2019 [facility] Interpretation Detected Detected 7:04 AM CDT LABORATORY Specimen Anatomical Collection Method Collection Time Receive d Time (Source) Location / / Volume Laterality Swab (Source Non-blood 12/12/2019 6:06 AM 0 6:09 Required) Collection / CDT AM CDT Unknown Narrative [facility] - 12/12/2019 7:04 A M CDT Test performed by real-time PCR. This test has been authorized by the FDA under an Emergency Use Authorization (EUA) for use by authorized laboratories. Jorge L Kaiser MD LAB_1 Performing Organization Address City/State/ZIP Code Phon e Number [facility] [address] [place] [address] documented in this encounter Visit Diagnoses Diagnosis Parkinson's disease (HRC) - Primary documented in this encounter Admitting Diagnoses Diagnosis Parkinson's disease (HRC) documented in this encounter Administered Medications Inactive Administered Medications - up to 3 most recent administrations Medication Order MAR Action Action Date Dose Rate Site bupivacaine-epinephrine PF Given 12/12/2019 7:58 AM CDT 20 mL (SENSORCAINE) 0.25% -[id number] injection ONCE PRN, Starting on Stacey 12/12/19 [...] (COMPLETED) 0735 (Given - Provider: Luis Anaya, PICKLE SOLUTION MAKER, CONCERT PROMOTER) 2 g, Intravenous, Administer over 30 Min [...] (Anesthesia Fluid - Provider: Luis Anaya APRN, CONCERT PROMOTER) 25 mL/hr, Intravenous, at 25 mL/hr, CONT [...] Lozenge, Oral, Q2H PRN, Throat Pain, Starting [facility] 12/12/19 at 0 957 bisacodyl (DULCOLAX) rectal suppository 10 mg 10 mg, Rectal, DAILY PRN, Other, Moderat e Constipation, Starting [facility] 12/12/19 at 0830, If unable to take oral senna (SENOKOT) or senna (SENOKOT) is ineffective., Post-op bupivacaine-epinephrine PF (SENSORCAINE) 0.25% -1:[id number] injecti on 0758 (Given - Provider: Jorge L Kaiser MD) ONCE PRN, Starting [facility] 12/12/19 at 0758, Intra-op gentamicin 80 mg-clindamycin 900 mg in s odium chloride 1000 mL (DABS) irrigation solution 0802 (Given - Provid er: Jorge L Kaiser MD) ONCE PRN, Starting [facility] 12/12/19 at 0802, Intra-op HYDROcodone-acetaminophen (NORCO) 5-325 MG per tablet 1-2 Tablet 1-2 Tablet, Oral, Q4H PRN, Other, Modera te Pain (pain score 5-7), Starting [facility] 12/12/19 at 0830, Post-op HYDROmorphone (DILAUDID) injection 0.3-0.5 mg 0.3-0.5 mg, Intravenous, Q2H PRN, Other, Severe Pain (pain score 8-10) if unable to take oral medications or for pain score increasing by 3 in 30 minutes, Starting [facility] 12/12/19 at 1216, May administer 1 hour after ORAL opioid administration if given for pain score escalation. Do NOT administer at the same time as ORAL opioids. HOLD if on OBGYN NURSE., Post-op lidocaine (UROJET) 2 % prefilled syringe [...] time as IV opioids. HOLD if on OBGYN NURSE., Post-op senna (SENOKOT) tablet 1-2 Tablet 1-2 Tablet, Oral, BID PRN, Other, Modera te Constipation, Starting [place] 12/12/19 at 0830, Hold for loose stools, Post-op documented in this encounter Care Teams Taxonomist Relationship Specialty Start Date End Date Samantha Stauffer MD PCP - General Family Practice 12/12/191999 [place] [address] documented as of this encounter
--- OUTSIDE RECORDS SUMMARY | 2022-02-02 11:50 | XMS_ITS | Encounter Summary ---
:1955 Author Organization [facility] Address [address], [place] [address] Care Team Providers Name Role Phone Samantha Stauffer MD Primary Care Provider [phone] Reason for Visit Reason Comments Medication Questions Encounter Details Date Type Department Care Team Description 06/11/2021 Telephone [facility] Doris Arauz lump maker Questions [address] [place] [address] Social History Tobacco Use Types Packs/Day [...] left again. Chloé Denny 06/16/2021, 1:21 PM AL HEALTH COORDINATOR Chloé Denny - 06/14/2021 3:32 PM CST RN called pt to advise him to call [place] Sanjeev Boyer back regarding his rx. No answer. Detailed voicemail left. Chloé Denny 06/14/2021, 3:33 PM AL HEALTH COORDINATOR Doris Arauz RN - 06/11/2021 1:55 PM CST [facility] pt. [facility] called because they are in need of more information to contact the patient. They have attempted 5 times with not luck. They are requesting a call back at [phone] AL HEALTH COORDINATOR documented in this encounter Plan of Treatment Not on filedocumented as of this encounter Visit Diagnoses Not on filedocumented in this encounter Care Teams Nuclear Physician Relationship Specialty Start Date End Date Samantha Stauffer MD PCP - General Family Practice 12/12/191999 [place] [id number] documented as of this encounter
--- OUTSIDE RECORDS SUMMARY | 2022-02-02 11:50 | XMS_ITS | Encounter Summary ---
:1955 Author Organization [facility] Address [address], [place] [address] Care Team Providers Name Role Phone Samantha Stauffer MD Primary Care Provider Reason for Visit Reason Comments Labs Needed Encounter Details Date Type Department Care Team Description 11/27/2019 Telephone Specialty Center 393 1 Neurosurgery Aurora Ruiz, RN Labs Needed [address] [place], [place] 153256 Social History Tobacco Use Types Packs/Day Years Used Date Smoking Tobacco: Never Smokeless Tobacco: Never Alcohol Use Standard Drinks/Week Comments Yes 0 (1 standard drink = 0.6 oz pure alcoho l) Sex Assigned at Date Recorded Not on file documented as of this encounter Nursing Notes Aurora Ruiz, RN - 11/27/2019 3:36 PM CDT Covid test ordered. MRSA test ordered and faxed to [facility]. Emailed surgical teaching information. documented in this encounter Plan of Treatment Not on filedocumented as of this encounter Visit Diagnoses Diagnosis Preop testing - Primary Preoperative examination, unspecified documented in this encounter Care Teams Sample Clerk Relationship Specialty Start Date End Date Samantha Stauffer MD PCP - General Family Practice 12/12/191999 [place] [address] documented as of this encounter
--- OUTSIDE RECORDS SUMMARY | 2022-02-02 11:50 | XMS_ITS | Encounter Summary ---
:1955 Author Organization [facility] Address [address], [place] [address] Care Team Providers Name Role Phone Samantha Stauffer MD Primary Care Provider [phone] Reason for Visit Reason Comments Refill Encounter Details Date Type Department Care Team Description 05/18/2021 Refill [facility] Neuroscience Maria Esther Reis MD Refill Center Neurology 3931 [facility] [address] [place] [address] [place] [address] [phone] Social History Tobacco Use Types Packs/Day Years [...] filedocumented in this encounter Care Teams Senior Software Systems Engineer Relationship Specialty Start Date End Date Samantha Stauffer MD PCP - General Family Practice 12/12/191999 [place] [address] documented as of this encounter
--- OUTSIDE RECORDS SUMMARY | 2022-02-02 11:50 | XMS_ITS | Encounter Summary ---
:1955 Author Organization [facility] Address [address] [address] Care Team Providers Name Role Phone Samantha Stauffer MD Primary Care Provider [phone] Reason for Visit Reason Comments Nurse Visit Encounter Details Date Type Department Care Team Description 12/25/2019 Office Visit Specialty Center 3931 Nurse, P3931 Nsu En counter for post Neurosurgery surgical wound check 3931 [facility]. (Primary Dx) [place], [place] [id number] Social History Tobacco Use Types Packs/Day Years [...] in another medication such as Percocet or [place]). ?? If you are still taking prescription [...] in this encounter Care Teams Manager Of Corporate Communications Relationship Specialty Start Date End Date Samantha Stauffer MD PCP - General Family Practice 12/12/191999 [place] [address] documented as of this encounter
--- OUTSIDE RECORDS SUMMARY | 2022-02-02 11:50 | XMS_ITS | Encounter Summary ---
:1955 Author Organization [facility] Address [address], [place] [address] Care Team Providers Name Role Phone Samantha Stauffer MD Primary Care Provider [phone] Reason for Visit Reason Comments Refill Encounter Details Date Type Department Care Team Description 05/24/2020 Refill [facility] Neuroscience Maria Esther Reis MD Refill Center Neurology 3931 [facility] [address] [facility] [address] [place] [address] [phone] Social History Tobacco Use Types Packs/Day Years [...] on filedocumented in this encounter Care Teams Bulwark Carpenter Relationship Specialty Start Date End Date Samantha Stauffer MD PCP - General Family Practice 12/12/191999 [place] [address] documented as of this encounter
--- OUTSIDE RECORDS SUMMARY | 2022-02-02 11:50 | XMS_ITS | Encounter Summary ---
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 Reason for Visit Therapies (Routine) - Closed Specialty Diagnoses / Procedures Referred By Contact Refer red To Contact Diagnoses Parkinson's disease (HRC) Dysphagia, unspecified type Maria Esther Phan MD [address] [place] [address] [phone] Referral ID Status Reason Start Date Expiration Date Visits Requ ested Visits Authorized [id number] Closed 10/28/2020 10/28/2021 999 999 Encounter Details Date Type Department Care Team Description 11/19/2020 Office Visit Mesfin Fong, Dysphagia, o ropharyngeal phase (Primary Dx); Neuroscience Center PRESCRIPTION CLERK Parkinson's disease (HRC); Speech Therapy [address] [place] [address] Hypokinetic Parkinsonian dysphonia (HRC) [address] [place] [id number] [address] [place] [address] [phone] Social History Tobacco Use Types Packs/Day Years [...] to you soon. JB Samuels [facility] Licensed Speech Language Pathologist -- Outpatient appointments [...] set to have EGD done tomorrow in [place], [place]. Hopefully this will lead to a [...] a regular diet with thin liquids Blue rumr/[employer] Insurance Info: Today's Visit Number: 1 Progress [...] to IDDSI liquid framework: Davina Alegria, Mapping [employer] Varibar Barium Products to the IDDSI Framework. IDDSI website. ht tps://iddsi.org/IDDSI/media/images/Publications/Gekhiyl-Dklypaw-tg-IDDSI-Framewo rk.pdf. October 2016. Varibar Thin 40% IDDSI Level 0-Thin Varibar Mckee 40% IDDSI Level 2-Mildly Thick Varibar Thin [...] Dysphonia documented in this encounter Care Teams Over Short And Damage Clerk Relationship Specialty Start Date End Date Samantha Stauffer MD PCP - General Family Practice 12/12/191999 [place] [address] documented as of this encounter
--- OUTSIDE RECORDS SUMMARY | 2022-02-02 11:51 | XMS_ITS | Encounter Summary ---
:1955 Author Organization [facility] Address [address] [place] [address] Care Team Providers Name Role Phone Lurdes Thomas MD Primary Care Provider Reason for Referral Consult/Transfer Care (Routine) - Closed Specialty Diagnoses / Procedures Referred By Contact Refer red To Contact Diagnoses Parkinson's disease (HRC) Richard Phan MD [address] [place], [place] [address] Referral ID Status Reason Start Date Expiration Date Visits Requ ested Visits Authorized [id number] Closed 09/12/2019 12/11/2020 1 1 Scheduling Instructions Your provider has recommended an appoint ment with Jasmine Ramirez. You may call [phone] to schedule your appoi ntment. If you do not schedule an appointment within the next 1 to 3 business days, we will call you to help arrange your appointment. We suggest you call your [facility] company insurance company about your coverage and benefits for this appointment. Reason for Visit Reason Comments QUESTIONS, GENERAL UPDATE Encounter Details Date Type Department Care Team Description 09/02/2019 [facility] MD Prem UPDATE Neurology [address] [place] [address] [place], [place] [phone] (Wo rk) Social History Tobacco Use Types [...] Matt Cates RN 09/12/2019, 1:24 PM Matt aCtes RN - 09/12/2019 11:36 AM CDT [facility] Matt Cates RN 09/12/2019, 11:37 AM [...] that we are restarting battery changes at [facility] with Dr. Kaiser, so if they wish [...] will be limited to drop off and belt picker on the day of surgery. A [...] Primary documented in this encounter Care Teams Child And Family Services Specialist Relationship Specialty Start Date End Date Lurdes Thomas MD PCP - General 06/18/14 12/11/19 documented as of this encounter
--- OUTSIDE RECORDS SUMMARY | 2022-02-02 11:51 | XMS_ITS | Encounter Summary ---
:1955 Author Organization [facility] Address [address] [place] [address] Care Team Providers Name Role Phone Lurdes Thomas MD Primary Care Provider Reason for Visit Reason Comments QUESTIONS, GENERAL Encounter Details Date Type Department Care Team Description 09/17/2019 Telephone [facility] Maria Esther Phan, GENERAL Neuroscience Center MD Prem Neurology [address] [facility] [address] [facility] [place] [phone] (Wo rk) Social History Tobacco Use Types [...] the top of his limit. Gave him [facility] D[facility] nurse line to call if he had programing questions. FYI. Maria Esther Phan MD - 09/23/2019 12:30 PM CDT OK, I will ask nursing for DBS programming with [facility], to see if we can put off [...] Phan may have patient to go to [facility] to have an adjustment. They would be interested in this if it is a possibility. Dr. Phan, please review and advise. Matt Cates RN 09/23/2019, 12:18 PM Sylvia Burgess - 09/23/2019 10:10 AM CDT Spouse called in, wanting to speak with Blaise about his battery and could be that it needs adjusting.Please call [phone] Sylvia Burgess 09/23/2019, 10:11 AM Matt Cates [...] on filedocumented in this encounter Care Teams Direct Care Professional Relationship Specialty Start Date End Date Lurdes Thomas MD PCP - General 06/18/14 12/11/19 documented as of this encounter
--- OUTSIDE RECORDS SUMMARY | 2022-02-02 11:51 | XMS_ITS | Encounter Summary ---
:1955 Author Organization [facility] Address [address] [place] [address] Care Team Providers Name Role Phone Lurdes Thomas MD Primary Care Provider Reason for Visit Reason Comments Refill Encounter Details Date Type Department Care Team Description 06/03/2019 Refill [facility] Neuroscience Maria Esther Reis MD Refill Center Neurology 3931 [facility] [address] [place] [address] [place] [address] [phone] Social History Tobacco Use Types Packs/Day Years Used Date Smoking Tobacco: Never Smokeless Tobacco: Never Alcohol Use Standard Drinks/Week Comments Yes 0 (1 standard drink = 0.6 oz pure alcoho l) Sex Assigned at Date Recorded Not on file documented as of this encounter Nursing Notes Rachel Brown RN - 06/03/2019 1:11 PM CST Incorrect provider. Rachel Brown RN S SUPERINTENDENT documented in this encounter Plan of Treatment Not on filedocumented as of this encounter Visit Diagnoses Not on filedocumented in this encounter Care Teams Lead Radiologic Technologist Relationship Specialty Start Date End Date Lurdes Thomas MD PCP - General 06/18/14 12/11/19 documented as of this encounter
--- OUTSIDE RECORDS SUMMARY | 2022-02-02 11:51 | XMS_ITS | Encounter Summary ---
:1955 Author [facility] Address [address] [place] [address] Care Team Providers Name Role Phone Samantha Stauffer MD Primary Care Provider [phone] Encounter Details Date Type Department Care Team Description 11/20/2019 Prep for Surgery Specialty Center 3931 Clementine Kaiser MD Neurosurgery [address] [address] [phone] Social History Tobacco Use Types Packs/Day Years [...] filedocumented in this encounter Care Teams Direct Marketing Manager Relationship Specialty Start Date End Date Samantha Stauffer MD PCP - General Family Practice 12/12/191999 [place] [address] documented as of this encounter
--- OUTSIDE RECORDS SUMMARY | 2022-02-02 11:51 | XMS_ITS | Encounter Summary ---
:1955 Author Organization [facility] Address [address], [place] [address] Care Team Providers Name Role Phone Lurdes Thomas MD Primary Care Provider Reason for Visit Reason Comments Refill Encounter Details Date Type Department Care Team Description 08/21/2019 Refill [facility] Neuroscience Maria Esther Reis MD Refill Center Neurology 3931 [facility] [address] [place] [address] [place] [address] [phone] Social History Tobacco Use Types Packs/Day Years [...] on filedocumented in this encounter Care Teams Privacy Director Relationship Specialty Start Date End Date Lurdes Thomas MD PCP - General 06/18/14 12/11/19 documented as of this encounter
--- OUTSIDE RECORDS SUMMARY | 2022-02-02 11:51 | XMS_ITS | Encounter Summary ---
:1955 Author Organization [facility] Address [address] [place] [address] Care Team Providers Name Role Phone Lurdes Thomas MD Primary Care Provider Reason for Visit Reason Comments Concerns Battery getting low Encounter Details Date Type Department Care Team Description 08/28/2019 Telephone [facility] Concern s (Battery Neuroscience Center MD Prem getting low) Neurology 3931 [facility] [address] [place] [address] [place], [place] [phone] (Wo rk) Social History Tobacco Use Types [...] 09/13/2019. Please help them set up the [employer] madhav. Matt Cates RN 08/28/2019, 3:04 PM [...] filedocumented in this encounter Care Teams Senior Bookkeeper Relationship Specialty Start Date End Date Lurdes Thomas MD PCP - General 06/18/14 12/11/19 documented as of this encounter
--- OUTSIDE RECORDS SUMMARY | 2022-02-02 11:51 | XMS_ITS | Encounter Summary ---
:1955 Author Organization [facility] Address [address], [place] [address] Care Team Providers Name Role Phone Lurdes Thomas MD Primary Care Provider Reason for Visit Reason Comments Prior Authorization Request update needed - [facility] Encounter Details Date Type Department Care Team Description 10/10/2019 Telephone [facility] Neuroscience Center MD Prem Request (update needed Neurology 3931 [facility]) [address] [place] [address] [place], [place] [phone] Social History Tobacco Use Types Packs/Day Years [...] [facility] on status for PA for Gocovri. Pt needs this medication by Monday. Please call pt back and advise. THanks Jeannette Dee 10/10/2019, 10:53 AM documented in this encounter Plan of Treatment Not on filedocumented as of this encounter Visit Diagnoses Not on filedocumented in this encounter Care Teams Welt Sole Layer Relationship Specialty Start Date End Date Lurdes Thomas MD PCP - General 06/18/14 12/11/19 documented as of this encounter
--- OUTSIDE RECORDS SUMMARY | 2022-02-02 11:51 | XMS_ITS | Encounter Summary ---
:1955 Author Organization [email or web address] Address [address], [place] [address] Care Team Providers Name Role Phone Lurdes Thomas MD Primary Care Provider Reason for Visit Reason Comments Video Visit Consult/Transfer Care (Routine) - Closed Specialty Diagnoses / Procedures Referred By Contact Refer red To Contact Diagnoses Parkinson's disease (HRC) Maria Esther Phan MD [address] [place], [place] [address] Referral ID Status Reason Start Date Expiration Date Visits Requ ested Visits Authorized [id number] Closed 09/12/2019 12/11/2020 1 1 Encounter Details Date Type Department Care Team Description 09/18/2019 Telemedicine Specialty Center 3931 Divina Kaiser MD Parkinson's disease Neurosurgery 3931 [facility]) (Primary Dx) 3931 [facility] [address] [phone] Social History Tobacco Use Types Packs/Day Years [...] screening: no ?? Confirmed that patient has iSuppli downloaded and ready: Yes ?? Patient is [...] documented in this encounter Care Teams Lead Atg Developer Relationship Specialty Start Date End Date Lurdes Thomas MD PCP - General 06/18/14 12/11/19 documented as of this encounter
--- OUTSIDE RECORDS SUMMARY | 2022-02-02 11:51 | XMS_ITS | Encounter Summary ---
:1955 Author Organization On license of [facility] Address [address], [place] [address] Care Team Providers Name Role Phone Lurdes Thomas MD Primary Care Provider Reason for Visit Reason Onset Date Comments Refill 08/01/2019 Encounter Details Date Type Department Care Team Description 08/01/2019 Refill On license of [facility] Neuroscience Maria Esther Reis MD Refill Center Neurology 3931 [facility] [address] [facility] [place] [address] [place] [address] [phone] Social History Tobacco Use Types Packs/Day Years [...] bedtime Qty: 60 Last Refill: 07/08/2019 Senior Research Scientist/Appt Center: Was the pharmacy entered into the Preferred Pharmacy field? Yes Abi Laughlin 08/01/2019, 10:31 AM documented in this encounter Plan of Treatment Not on filedocumented as of this encounter Visit Diagnoses Not on filedocumented in this encounter Care Teams Paper Bag Maker Relationship Specialty Start Date End Date Lurdes Thomas MD PCP - General 06/18/14 12/11/19 documented as of this encounter
--- OUTSIDE RECORDS SUMMARY | 2022-02-02 11:51 | XMS_ITS | Encounter Summary ---
:1955 Author Organization [facility] Address [address], [place] [address] Care Team Providers Name Role Phone Lurdes Thomas MD Primary Care Provider Reason for Visit Reason Comments QUESTIONS, GENERAL MRI and DBS Encounter Details Date Type Department Care Team Description 10/22/2018 Telephone [facility] Shawnee Hilario, RN QUESTIONS, GENERAL (MRI [address] arriaga and DBS) [place], [place] 55 [facility] [phone] Social History Tobacco Use Types Packs/Day Years [...] back. They [place] an [place] [facility] and he is receiving his care over [...] on filedocumented in this encounter Care Teams Airport Skilled Maintenance Supervisor Relationship Specialty Start Date End Date Lurdes Thomas MD PCP - General 06/18/14 12/11/19 documented as of this encounter
--- OUTSIDE RECORDS SUMMARY | 2022-02-02 11:51 | XMS_ITS | Encounter Summary ---
:1955 Author [facility] Address [address] [place] [address] Care Team Providers Name Role Phone Lurdes Thomas MD Primary Care Provider Reason for Referral Therapies (Routine) - Closed Specialty Diagnoses / Procedures Referred By Contact Refer red To Contact Diagnoses Dysphagia, unspecified type Parkinson's disease (HRC) Maria Esther Phan MD [address] [place], [place] [address] Referral ID Status Reason Start Date Expiration Date Visits Requ ested Visits Authorized [id number] Closed 06/17/2019 08/16/2019 1 1 Scheduling Instructions Your provider has recommended an appoint ment with a [facility]rap[facility]. Please stop at the clinic check out desk for as sistance with scheduling or if you prefer to call for your appointment you may call [facility] at [phone]. We suggest you call your [facility] insurance company about your coverage and benefits for this appointment. NG TUNNEL OPERATOR Reason for Visit Reason Comments REPORTING, NEW SYMPTOMS Encounter Details Date Type Department Care Team Description 06/17/2019 [facility] [place] Prem SYMPTOMS Neurology [address] [address] [place], [place] [phone] (Wo rk) Social History Tobacco Use Types [...] no call back needed at this time. NG TUNNEL OPERATOR Matt Cates RN - 06/17/2019 10:13 AM CST Nurse called Natasha and relayed message from Dr. Phan to her. She stated understanding and had no further questions at this time. She was in agreement with plan. Matt Cates RN 06/17/2019, 10:15 AM NG TUNNEL OPERATOR Maria Esther Phan MD - 06/17/2019 10:05 AM CST They should have his PCP check him and possily do a CXR if indicated. The we can have him see speechtherapy for swallow evaluation - order entered. NG TUNNEL OPERATOR Maximo Julio - 06/17/2019 8:16 AM CST Patients Natasha, calling to request call back regarding symptoms she is concerned about. She states the patient has been coughing for the past week and she thought it was due to a cold however, now she thinks it is from aspiration from Parkinson's. Please call her back when available, Thank you. NG TUNNEL OPERATOR documented in this encounter Plan of Treatment Scheduled Referrals Name Type Priority Associated Diagnoses Order S chedule Speech Therapy Referral Routine Dysphagia, unspe cified type Ordered: 06/17/2019 Parkinson's disease (HRC) documented as of this encounter Visit Diagnoses Diagnosis Dysphagia, unspecified type - Primary Parkinson's disease (HRC) documented in this encounter Care Teams Carpet Layer Helper Relationship Specialty Start Date End Date Lurdes Thomas MD PCP - General 06/18/14 12/11/19 documented as of this encounter
--- OUTSIDE RECORDS SUMMARY | 2022-02-02 11:51 | XMS_ITS | Encounter Summary ---
:1955 Author Organization [facility] Address [address] [address] Care Team Providers Name Role Phone Lurdes Thomas MD Primary Care Provider Reason for Visit Procedure/Equipment (Routine) - Incomplete Specialty Diagnoses / Procedures Referred By Contact Refer red To Contact Diagnoses Dysphagia, oropharyngeal phase [place], Maria Esther Amaro MD Procedures FL Video Swallow Study [address] [place], [place] [address] Referral ID Status Reason Start Date Expiration Date Visits V isits Requested Authorized [id number] Incomplete 06/24/2019 09/22/2020 1 1 Encounter Details Date Type Department Care Team Description 06/24/2019 Ancillary [facility] [place], Dysphagia, Procedure Neuroscience Center Maria Esther Amaro MD oropharyngeal phase Radiology Fluoro [address] [place] [address] [place] [address] [facility] [phone] [place] [address] Social History Tobacco Use Types Packs/Day [...] PM Dysphagia, Resul ts for this STUDY REEL CUTTER oropharyngeal phase procedur e are in the results section. documented in this encounter Results FL Video Swallow Study (06/24/2019 4:10 PM REEL CUTTER) Anatomical Region Laterality Modality Neck, Chest Radio Fluoroscopy Specimen (Source) Anatomical Collection Method Collection Time Re ceived Time Location / / Volume Laterality 06/24/2019 4:10 PM REEL CUTTER Narrative 06/24/2019 5:11 PM REEL CUTTER EXAM: FL VIDEO SWALLOW STUDY LOCATION: [facility] DATE/TIME: 06/24/2019 4:10 PM INDICATION: Difficulty [...] original. EXAM: FL VIDEO SWALLOW STUDY LOCATION: [facility] DATE/TIME: 06/24/2019 4:10 PM INDICATION: Difficulty [...] (VARIBAR NECTAR) 40 Given 06/24/2019 4:12 PM REEL CUTTER 20 mL % oral suspension 20 mL 20 mL, Oral, ONCE (NON-SCHEDULED), Starting on 06/24/19 at 1611, Until Discontinued, For 3 doses Inactive Administered Medications - up to 3 most recent administrations Medication Order MAR Action Action Date Dose Rate Site barium sulfate (ENTERO VU) Given 06/24/2019 4:12 PM REEL CUTTER 20 mL suspension 20 mL 20 mL, Oral, ONCE (NON-SCHEDULED), Starting on Mon06/24/19 at 1611, For 1 dose barium sulfate (EZ-DISK) tablet 700 mg Given 06/24/2019 4:12 PM REEL CUTTER 700 mg 700 mg, Oral, ONCE (NON-SCHEDULED), Starting on 06/24/19 at 1611, Until Mon06/24/19 at 1612, For 1 dose barium Sulfate (VARIBAR PUDDING) oral pudding 5 Given 06/24/2019 4:12 PM REEL CUTTER 5 mL mL 5 mL, Oral, ONCE (NON-SCHEDULED), Starting on 06/24/19 at 1611, Until Mon06/24/19 at 1612, For 1 dose documented in this encounter Care Teams Venture Capital Analyst Relationship Specialty Start Date End Date Lurdes Thomas MD PCP - General 06/18/14 12/11/19 documented as of this encounter
--- OUTSIDE RECORDS SUMMARY | 2022-02-02 11:51 | XMS_ITS | Encounter Summary ---
:1955 Author Organization [facility] Address [address] [place] [address] Care Team Providers Name Role Phone Lurdes Thomas MD Primary Care Provider Reason for Visit Reason Comments Prior Authorization Request Encounter Details Date Type Department Care Team Description 08/03/2018 Telephone [facility] Neuroscience Center MD Prem Request Neurology 3931 [facility] [address] [facility] [place] [address] [place], [place] [phone] Social History Tobacco Use Types Packs/Day Years [...] on filedocumented in this encounter Care Teams Club Concierge Relationship Specialty Start Date End Date Lurdes Thomas MD PCP - General 06/18/14 12/11/19 documented as of this encounter
--- OUTSIDE RECORDS SUMMARY | 2022-02-02 11:51 | XMS_ITS | Encounter Summary ---
:1955 Author Organization [facility] Address [address] [place] [address] Care Team Providers Name Role Phone Lurdes Thomas MD Primary Care Provider Reason for Visit Reason Comments QUESTIONS, GENERAL MRI with DBS Encounter Details Date Type Department Care Team Description 10/18/2018 Telephone [facility] Shawnee Hilario, RN QUESTIONS, GENERAL (MRI [address] arriaga with DBS) [place], [place] 55 [facility] [phone] Social History Tobacco Use Types Packs/Day Years Used Date Smoking Tobacco: Never Smokeless Tobacco: Never Alcohol Use Standard Drinks/Week Comments Yes 0 (1 standard drink = 0.6 oz pure alcoho l) Sex Assigned at Date Recorded Not on file documented as of this encounter Nursing Notes Shawnee Hilario, RN - 10/18/2018 4:25 PM CDT There was no return phone call to [place] today about getting system checked. Will send FYI to and then close encounter. Shawnee Hilario RN - 10/18/2018 9:06 AM CDT Patient and significant other calling because patient needs an MRI of his lumbar spine and was supposed to have this morning at [facility]. They wanted to fax us a form to complete verifying his DBS system is MRI eligible. We have not seen patient here for well over a year, he see's Dr. Phan over at the [facility] in [place]. I offered 3 options to them. They could come here and have the check. They could ask their doctor to order MRI over at [facility] and someone there can check it or they could contact [employer] and see if anyone could go out to [place] to check. She will call us back and let us know what they decide. documented in this encounter Plan of Treatment Not on filedocumented as of this encounter Visit Diagnoses Not on filedocumented in this encounter Care Teams Heel Stainer Relationship Specialty Start Date End Date Lurdes Thomas MD PCP - General 06/18/14 12/11/19 documented as of this encounter
--- OUTSIDE RECORDS SUMMARY | 2022-02-02 11:51 | XMS_ITS | Encounter Summary ---
:1955 Author Organization [facility] Address [address] [place] [address] Care Team Providers Name Role Phone Lurdes Thomas MD Primary Care Provider Reason for Visit Reason Comments Prior Authorization Request Encounter Details Date Type Department Care Team Description 09/11/2018 Telephone [facility] Maria Esther Phan [facility] Neuroscience Center MD Prem Request Neurology 3931 [facility] 295 [place] [address] [place], [place] [phone] Social History Tobacco Use Types Packs/Day Years [...] PA was approved from 08/14/18 to 09/13/19. PA#[id number] Called [employer] and told them PA was approved. They will expedite shipping and get to pt by Monday. Copy of PA approval sent to [facility]. Abi Laughlin - 09/13/2018 4:41 PM CDT Patient's spouse called regarding below message She can be contacted at [phone] - spouse's number or her own number [phone] Abi Laughlin 09/13/2018, 4:42 PM Maria Esther Phan MD - 09/13/2018 3:46 PM CDT Jeannette, I went to the website, will not allow me to start an account as I apparently already have on, I asked for a password reset, and received no e-mail to reset. I called this agency ([facility] -whomever they might be) and they [...] 137 mg ER capsules 1. Go to [employer] and click Enter a Ann 2. Enter the pt's Last name, and the Ann Ann: [id number] Pt's Last name: Poly : 1955 3. Complete th form and click: Send to Plan for approval documented in this encounter Plan of Treatment Not on filedocumented as of this encounter Visit Diagnoses Not on filedocumented in this encounter Care Teams Manager Utilization Review Relationship Specialty Start Date End Date Lurdes Thomas MD PCP - General 06/18/14 12/11/19 documented as of this encounter
--- OUTSIDE RECORDS SUMMARY | 2022-02-02 11:51 | XMS_ITS | Encounter Summary ---
:1955 Author Organization [email or web address] Address [address], [place] [address] Care Team Providers Name Role Phone Lurdes Thomas MD Primary Care Provider Reason for Referral (Routine) - Incomplete Specialty Diagnoses / Procedures Referred By Contact Refer red To Contact Diagnoses Parkinson's disease (HRC) Jorge L Kaiser MD Procedures Case Request OR - Neurosurgery: RIGHT DEEP BRAIN STIMULATOR GENERATOR REPLACEMENT [address] [place] [address] Referral ID Status Reason Start Date Expiration Date Visits V isits Requested Authorized [id number] Incomplete 09/18/2019 12/17/2020 1 1 Encounter Details Date Type Department Care Team Description 09/18/2019 Prep for [facility] Jorge L Kaiser MD Parkinson's disease 3931 Neurosurgery 3931 [facility] (Primary Dx) [address] [place] [address] [place] [address] [phone] Social History Tobacco Use Types Packs/Day Years [...] Primary documented in this encounter Care Teams Research Laboratory Manager Relationship Specialty Start Date End Date Serum, Lurdes C, MD PCP - General 06/18/14 12/11/19 documented as of this encounter
--- OUTSIDE RECORDS SUMMARY | 2022-02-02 11:51 | XMS_ITS | Encounter Summary ---
:1955 Author Organization [facility] Address [address] [place] [address] Care Team Providers Name Role Phone Lurdes Thomas MD Primary Care Provider Encounter Details Date Type Department Care Team Description 04/12/2019 Telephone [facility] Neuroscience Princess Phan, Center Neurology [address] [facility] [place] [address] [place] [address] [phone] (Wo rk) Social History Tobacco Use Types [...] folder as COURT Laughlin 04/12/2019, 2:20 PM GER APPLIED documented in this encounter Plan of Treatment Not on filedocumented as of this encounter Visit Diagnoses Not on filedocumented in this encounter Care Teams Adjustment Examiner Relationship Specialty Start Date End Date Lurdes Thomas MD PCP - General 06/18/14 12/11/19 documented as of this encounter
--- OUTSIDE RECORDS SUMMARY | 2022-02-02 11:51 | XMS_ITS | Encounter Summary ---
:1955 Author Organization [facility] Address [address], [place] [address] Care Team Providers Name Role Phone Lurdes Thomas MD Primary Care Provider Reason for Referral Consult/Transfer Care (Routine) - Closed Specialty Diagnoses / Procedures Referred By Contact Refer red To Contact Neurosurgery Diagnoses Parkinson's disease (HRC) Maria Esther Phan MD McIver, Jon I, MD [address] [facility] [address] [place], [place] [address] [place] [address] Fax: Referral ID Status Reason Start Date Expiration Date Visits Requ ested Visits Authorized [id number] Closed 11/13/2019 02/11/2021 1 1 Scheduling Instructions Your provider has [facility] an appoint [facility]. You may call [phone], option 2 to schedule your appointment. We suggest you call your health insurance breanna about your coverage and benefits for this appointment. Reason for Visit Reason Comments FYI DBS battery Encounter Details Date Type Department Care Team Description 11/13/2019 Telephone Maria Esther Mckeon (DB S battery) Neuroscience Center MD Prem Neurology 3931 [facility] 295 [place] [address] [phone] (Wo rk) Social History Tobacco Use Types [...] him if he mixed systems (I.egot a [employer] Sci battery, with Medtronic lead) this is [...] to call and schedule the battery replacement. [place] [facility], can you facilitate with Dr. Kaiser's [...] documented in this encounter Care Teams Medical Housekeeper Relationship Specialty Start Date End Date Lurdes Thomas MD PCP - General 06/18/14 12/11/19 documented as of this encounter
--- OUTSIDE RECORDS SUMMARY | 2022-02-02 11:51 | XMS_ITS | Encounter Summary ---
:1955 Author Organization [facility] Address [address], [place] [address] Care Team Providers Name Role Phone Lurdes Thomas MD Primary Care Provider Reason for Referral Procedure/Equipment (Routine) - Incomplete Specialty Diagnoses / Procedures Referred By Contact Refer red To Contact Diagnoses Dysphagia, oropharyngeal phase Maria Esther Phan MD Procedures FL Video Swallow Study [address] [place], [place] [address] Referral ID Status Reason Start Date Expiration Date Visits V isits Requested Authorized [id number] Incomplete 06/24/2019 09/22/2020 1 1 OELECTRIC STATION CHIEF Reason for Visit Reason Comments Parkinson's Disease Therapies (Routine) - Closed Specialty Diagnoses / Procedures Referred By Contact Refer red To Contact Diagnoses Dysphagia, unspecified type Parkinson's disease (HRC) Maria Esther Phan MD [address] [place], [place] [address] Referral ID Status Reason Start Date Expiration Date Visits Requ ested Visits Authorized [id number] Closed 06/17/2019 08/16/2019 1 1 Encounter Details Date Type Department Care Team Description 06/24/2019 Office Visit Mesfin Fong, Dysphagia, Neuroscience Center STRETCHER LEVELER OPERATOR HELPER oropharyngeal phase Speech Therapy [address] (Primary Dx) [address] [place], [place] [address] [place] [address] [phone] Social History Tobacco Use Types Packs/Day Years Used Date Smoking Tobacco: Never Smokeless Tobacco: Never Alcohol Use Standard Drinks/Week Comments Yes 0 (1 standard drink = 0.6 oz pure alcoho l) Sex Assigned at Date Recorded Not on file documented as of this encounter Progress Notes Mesfin Morgan SLP - 06/24/2019 3:00 PM CST Pt seen, referred for MBSS OELECTRIC STATION CHIEF documented in this encounter Plan of Treatment Not on filedocumented as of this encounter Results FL Video Swallow Study (06/24/2019 4:10 PM HYDROELECTRIC STATION CHIEF) Anatomical Region Laterality Modality Neck, Chest Radio Fluoroscopy Specimen (Source) Anatomical Collection Method Collection Time Re ceived Time Location / / Volume Laterality 06/24/2019 4:10 PM HYDROELECTRIC STATION CHIEF Narrative 06/24/2019 5:11 PM HYDROELECTRIC STATION CHIEF EXAM: FL VIDEO SWALLOW STUDY LOCATION: [facility] DATE/TIME: 06/24/2019 4:10 PM INDICATION: [...] LOCATION: [facility] DATE/TIME: 06/24/2019 4:10 PM INDICATION: [...] as described above. Maria Esther Phan MD [facility] documented in this encounter Visit Diagnoses Diagnosis Dysphagia, oropharyngeal phase - Primary Dysphagia, oropharyngeal phase documented in this encounter Care Teams Carbon Capture Power Plant Manager Relationship Specialty Start Date End Date Lurdes Thomas MD PCP - General 06/18/14 12/11/19 documented as of this encounter
--- OUTSIDE RECORDS SUMMARY | 2022-02-02 11:51 | XMS_ITS | Encounter Summary ---
:1955 Author Organization [facility] Address [address] [place] [address] Care Team Providers Name Role Phone Lurdes Thomas MD Primary Care Provider Reason for Visit Reason Onset Date Comments Refill 06/03/2019 Encounter Details Date Type Department Care Team Description 06/03/2019 Refill [facility] Neuroscience Para Maria Esther newberry MD Refill Center Neurology [address] [address] [place] [address] [phone] Social History Tobacco Use Types Packs/Day Years Used Date Smoking Tobacco: Never Smokeless Tobacco: Never Alcohol Use Standard Drinks/Week Comments Yes 0 (1 standard drink = 0.6 oz pure alcoho l) Sex Assigned at Date Recorded Not on file documented as of this encounter Nursing Notes Maria Esther Phan MD - 06/03/2019 4:29 PM CST Citalopram was refilled via [facility]. Aib Bazzi 06/03/2019 1:57 PM CST Refill request: Medication: Citalopram (CELEXA) 10 MG Sig: take 1 tab by mouth daily Qty: 90 tabs Last Refill: not given Accounts Receivable Assistant/Appt Center: Was the pharmacy entered into the Preferred Pharmacy field? Yes Abi Laughlin 06/03/2019, 1:58 PM OUT MAN documented in this encounter Plan of Treatment Not on filedocumented as of this encounter Visit Diagnoses Not on filedocumented in this encounter Care Teams Platform Worker Relationship Specialty Start Date End Date Lurdes Thomas MD PCP - General 06/18/14 12/11/19 documented as of this encounter
--- OUTSIDE RECORDS SUMMARY | 2022-02-02 11:51 | XMS_ITS | Encounter Summary ---
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 [address] [place], [place] [phone] [address] Social History Tobacco Use Types Packs/Day Years [...] any sensory deficits. There are no tremors. Hbwfce-gyai-mooykx is accurate. There is mild bradykinesia. He [...] coordination documented in this encounter Care Teams Forestry Aid Relationship Specialty Start Date End Date Lurdes Thomas MD PCP - General 06/18/14 12/11/19 documented as of this encounter
--- OUTSIDE RECORDS SUMMARY | 2022-02-02 11:51 | XMS_ITS | Encounter Summary ---
:1955 Author Organization [facility] Address [address], [place] [address] Care Team Providers Name Role Phone Lurdes Thomas MD Primary Care Provider Reason for Visit Reason Onset Date Comments Refill 07/31/2018 Encounter Details Date Type Department Care Team Description 07/31/2018 Refill [facility] Neuroscience Maria Esther Reis MD Refill Center Neurology 3931 [facility] 295 [facility] [place] [address] [place] [address] [phone] Social History Tobacco Use Types Packs/Day Years [...] filedocumented in this encounter Care Teams Director Mortgage Relationship Specialty Start Date End Date Lurdes Thomas MD PCP - General 06/18/14 12/11/19 documented as of this encounter
--- OUTSIDE RECORDS SUMMARY | 2022-02-02 11:52 | XMS_ITS | Encounter Summary ---
:1955 Author Organization [facility] Address [address] [place] [address] Care Team Providers Name Role Phone Lurdes Thomas MD Primary Care Provider Reason for Visit Reason Comments Device Check Consult/Transfer Care (Routine) - Closed Specialty Diagnoses / Procedures Referred By Contact Refer red To Contact Diagnoses Parkinson's disease ([facility]) Maria Esther Phan MD [address] [place], [place] [address] Referral ID Status Reason Start Date Expiration Date Visits Requ ested Visits Authorized [id number] Closed 08/08/2017 11/07/2018 1 1 Encounter Details Date Type Department Care Team Description 08/08/2017 Nursing Visit [facility] Shaw[facility] Hilario, Parkinson's disease ([facility]) (P rimary Dx); [address] RN Encounter for fitting and adjustment of neuropacemaker of brain [address] [place], [place] [address] Social History Tobacco Use Types Packs/Day Years [...] Final settings: No changes were made Patient perl programmer range: Left 2.4-2.8V Right 2.3-2.7 Total [...] cord) documented in this encounter Care Teams Plastics Scientist Relationship Specialty Start Date End Date Lurdes Thomas MD PCP - General 06/18/14 12/11/19 documented as of this encounter
--- OUTSIDE RECORDS SUMMARY | 2022-02-02 11:52 | XMS_ITS | Encounter Summary ---
:1955 Author Organization [employer] Address [address], [place] [address] Care Team Providers Name Role Phone Lurdes Thomas MD Primary Care Provider Encounter Details Date Type Department Care Team Description 05/06/2016 Notes/Orders [place] [facility] P, OTR/L [address] arriaga [address] [place], [place] [address] [facility] [phone] [place] [address] (Wo rk) Social History Tobacco [...] physician. RODRIGUE Gandhi/Stefan 05/06/2016, 9:56 AM ' RVISORY TRAINING SPECIALIST documented in this encounter Plan of Treatment Not on filedocumented as of this encounter Visit Diagnoses Not on filedocumented in this encounter Care Teams Pharmacy Manager Relationship Specialty Start Date End Date Lurdes Thomas MD PCP - General 06/18/14 12/11/19 documented as of this encounter
--- OUTSIDE RECORDS SUMMARY | 2022-02-02 11:52 | XMS_ITS | Encounter Summary ---
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 Discussed the process in general and [...] on filedocumented in this encounter Care Teams Optical Goods Drilling Machine Operator Relationship Specialty Start Date End Date Lurdes Thomas MD PCP - General 06/18/14 12/11/19 documented as of this encounter
--- OUTSIDE RECORDS SUMMARY | 2022-02-02 11:52 | XMS_ITS | Encounter Summary ---
:1955 Author Organization [facility] Address [address] [address] Care Team Providers Name Role Phone Lurdes Thomas MD Primary Care Provider Reason for Referral Specialty Diagnoses / Procedures Referred By Contact Refer red To Contact Maria Esther Phan MD [address] [place], [place] [address] Referral ID Status Reason Start Date Expiration Date Visits Requ ested Visits Authorized E TENDER Reason for Visit Reason Comments Back Pain Encounter Details Date Type Department Care Team Description 05/19/2015 Initial Consult [place] [facility] Jordana Ham ht-sided low back Therapy M, PT pain with right-sided [address] [address] Social History Tobacco Use Types Packs/Day Years Used Date Smoking Tobacco: Never Smokeless Tobacco: Never Alcohol Use Standard Drinks/Week Comments Yes 0 (1 standard drink = 0.6 oz pure alcoho l) Sex Assigned at Date Recorded Not on file documented as of this encounter Progress Notes oJrdana Ham, PT - 05/19/2015 12:16 PM CST Visit Date: 05/19/2015 Patient : 1955 Physical Therapy Parkinson Evaluation/Plan of Care [facility] Initial Certification Period: 05/19/2015 to 08/17/15 Referring Provider: Dr. Maria Esther Phan Visit Diagnosis/ICD: Diagnosis ICD-10-CM ICD-9-CM 1. Right-sided low back pain with right-sided sciatica M54.41 724.3 Precautions: none Onset/Referral Date: 05/19/2015 Reason for Referral: -Outpatient PT. Orders: Evaluate and treat. [facility] Services: Programming RN, Social Work, therapy in [...] residence: Stairs to enter. -Living location: [facility]. 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 Cooperative. Pleasant. Motor [...] discussed therapist's recommendation to follow up at [facility] with orthopedic PT, provided pt with information regarding how to schedule follow up visit at their clinic, contacted [facility] to update them with transfer of [...] clinic closer to home for treatment with print support specialist. Pt to continue at [place] location. Pt would benefit from skilled PT [...] Therapeutic exercise. Ultrasound. Interdisciplinary Referrals: PT at [facility] [address], continue with POC Services Recommended: nothing at [...] 90 day(s). Total Treatment: 45 minutes The frame stripper and crusher is completed by the therapist and the referring clinician's electronic signature certifies medical necessity for the plan above. Completed by Jordana Ham PT License #: [id number] E TENDER documented in this encounter Plan of Treatment Scheduled Referrals Name Type Priority Associated Diagnoses [facility] Referral Routine Right-sided low back edmond n Ordered: 05/19/2015, with right-sided sciatica Ex keagan: 05/19/2015 documented as of this encounter Visit Diagnoses Diagnosis Right-sided low back pain with right-beck ed sciatica (HRC) documented in this encounter Care Teams Deicer Element Winder Machine Relationship Specialty Start Date End Date Lurdes Thomas MD PCP - General 06/18/14 12/11/19 documented as of this encounter
--- OUTSIDE RECORDS SUMMARY | 2022-02-02 11:52 | XMS_ITS | Encounter Summary ---
:1955 Author Organization [employer] Address [address] [address] Care Team Providers Name Role Phone Lurdes Thomas MD Primary Care Provider Reason for Referral Consult/Transfer Care (Routine) - Closed Specialty Diagnoses / Procedures Referred By Contact Refer red To Contact Diagnoses Parkinson's disease ([facility]) Maria Esther Phan MD [address] [place], [place] [address] Referral ID Status Reason Start Date Expiration Date Visits Requ ested Visits Authorized [id number] Closed 08/08/2017 11/07/2018 1 1 Scheduling Instructions Your provider has recommended an appoint ment with [facility] [place] [facility]. You may call [phone] or marino bardales [phone] to schedule your appointment. 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 documented in this encounter Progress Notes Maria Esther Phan MD - 08/08/2017 12:00 PM CDT NAME: DEIDRE PANG MR#: [id number] CSN: [id number] AUTHENTICATING CLINICIAN: Maria Esther Phan MD CONFIRM #: [id number] LOC: 26391 CLINIC PROGRESS NOTE DATE OF VISIT: 08/08/2017 : 1955 LOCATION: [place]. HISTORY OF PRESENT ILLNESS: Mr. Pang is [...] lower extremities distally.Coordination: No tremor seen today. Etkgjm-ygjh-eybllc is adequate. There is rxkb-go-oykinnmy dyskinesia, more so on the left than [...] sooner if necessary. SAP:MEDQ C: CONFIRM #: [id number] documented in this encounter Plan of Treatment Scheduled Referrals Name Type Priority Associated Diagnoses Order S chedule DBS PROGRAMMING CONSULT Referral Routine Parkinson's disea se Ordered: 08/08/2017 (AMB) (HR) documented as of this encounter Visit Diagnoses Diagnosis Parkinson's disease ([facility]C) - Primary documented in this encounter Care Teams Financial Business Analyst Relationship Specialty Start Date End Date Lurdes Thomas MD PCP - General 06/18/14 12/11/19 documented as of this encounter
--- OUTSIDE RECORDS SUMMARY | 2022-02-02 11:52 | XMS_ITS | Encounter Summary ---
:1955 Author Organization [facility] Address [address], [place] [address] Care Team Providers Name Role Phone Lurdes Thomas MD Primary Care Provider Reason for Visit Reason Comments Spine Lumbar Encounter Details Date Type Department Care Team Description 06/16/2015 Office Visit [place] [facility] Chris Cain, Right -sided low back Therapy Aurora Briggs, PT pain with right-sided [address] granados (Primary Dx) [place] [address] [place], [place] [phone] (Wo rk) Social History Tobacco Use Types Packs/Day Years Used Date Smoking Tobacco: Never Smokeless Tobacco: Never Alcohol Use Standard Drinks/Week Comments Yes 0 (1 standard drink = 0.6 oz pure alcoho l) Sex Assigned at Date Recorded Not on file documented as of this encounter Progress Notes Aurora Hickey, PT - 06/23/2015 2:03 PM CST Encounter date: 06/16/2015 Pt : 1955 [facility] Physical Therapy Progress Note Visit Number: 8 Initial Certification Period: 05/19/2015 to 08/17/15 Referring Provider: Dr. Maria Esther Phan Visit Diagnosis/ICD: Diagnosis ICD-10-CM ICD-9-CM 1. Right-sided low back pain with right-sided sciatica M54.41 724.3 Precautions: none Onset/Referral Date: 05/19/2015 Orders: Evaluate and treat. [facility] Services: Programming RN, Social Work, [...] above OBJ info and- therapeutic ex (CPT 24150)20 min Discussed hip series of stretches to [...] stretch with this, no pain. ultrasound (CPT 19682) 11 min US to right LB for 10 min, 1.3 w/cm2, continuous manual therapy (CPT 73989) 12 min soft tissue mobilization, and use of labour market economist tool to T and lumbar parsspinals Timed [...] therapy beyondinitial 6 that are set up NSTITCH FELLED SEAM OPERATOR documented in this encounter Plan of Treatment Not on filedocumented as of this encounter Visit Diagnoses Diagnosis Right-sided low back pain with right-beck ed sciatica (HRC) - Primary documented in this encounter Care Teams Payroll Examiner Relationship Specialty Start Date End Date Lurdes Thomas MD PCP - General 06/18/14 12/11/19 documented as of this encounter
--- OUTSIDE RECORDS SUMMARY | 2022-02-02 11:52 | XMS_ITS | Encounter Summary ---
:1955 Author Organization [facility] Address [address], [place] [address] Care Team Providers Name Role Phone Lurdes Thomas MD Primary Care Provider Reason for Visit Reason Comments Other Encounter Details Date Type Department Care Team Description 12/07/2017 Telephone [facility] [facility] Doris Arauz, RN Other [address] corina [place], [place] [address] Social History Tobacco Use Types Packs/Day Years Used Date Smoking Tobacco: Never Smokeless Tobacco: Never Alcohol Use Standard Drinks/Week Comments Yes 0 (1 standard drink = 0.6 oz pure alcoho l) Sex Assigned at Date Recorded Not on file documented as of this encounter Nursing Notes Doris Arauz, RN - 12/07/2017 2:28 PM CDT Received call from [employer]. They have been trying to call Andrew to schedule shipment of [employer] and unable to reach him. Called and LM for Andrew asking him to call [employer] at [phone]. [employer] will mail a letter also, asking him to call them. documented in this encounter Plan of Treatment Not on filedocumented as of this encounter Visit Diagnoses Not on filedocumented in this encounter Care Teams Senior Loan Processor Relationship Specialty Start Date End Date Lurdes Thomas MD PCP - General 06/18/14 12/11/19 documented as of this encounter
--- OUTSIDE RECORDS SUMMARY | 2022-02-02 11:52 | XMS_ITS | Encounter Summary ---
:1955 Author Organization [facility] Address [address] [address] Care Team Providers Name Role Phone Lurdes Thomas MD Primary Care Provider Encounter Details Date Type Department Care Team Description 05/05/2016 Notes/Orders [place] [facility], [address] corina MU[place]MAD [place], [place] [address] [address] [phone] [place] [address] (Wo rk) Social History Tobacco [...] treatmentorder should be obtained from the physician. NEER TECHNICAL STAFF documented in this encounter Plan of Treatment Not on filedocumented as of this encounter Visit Diagnoses Not on filedocumented in this encounter Care Teams Chicken Handler Relationship Specialty Start Date End Date Lurdes Thomas MD PCP - General 06/18/14 12/11/19 documented as of this encounter
--- OUTSIDE RECORDS SUMMARY | 2022-02-02 11:52 | XMS_ITS | Encounter Summary ---
:1955 Author Organization 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 [address] [place], [place] [phone] [address] Social History Tobacco Use Types Packs/Day Years Used Date Smoking Tobacco: Never Smokeless Tobacco: Never Alcohol Use Standard Drinks/Week Comments Yes 0 (1 standard drink = 0.6 oz pure alcoho l) Sex Assigned at Date Recorded Not on file documented as of this encounter Last Filed Vital Signs Vital Sign Reading Time Taken Comments Blood Pressure 118/73 05/04/2018 3:45 PM SIGN LANGUAGE INTERPRETER Pulse 85 05/04/2018 3:45 PM SIGN LANGUAGE INTERPRETER Temperature - - Respiratory Rate - - Oxygen Saturation - - Inhaled Oxygen Concentration - - Weight 80.1 kg (176 lb 9.6 oz) 05/04/2018 3:45 PM SIGN LANGUAGE INTERPRETER Height 185.4 cm (6' 1) 05/04/2018 3:45 PM SIGN LANGUAGE INTERPRETER Body Mass Index 23.3 05/04/2018 3:45 PM SIGN LANGUAGE INTERPRETER documented in this encounter Patient Instructions Patient InstructionsRichard Phan MD - 05/04/2018 3:45 PM CST A good site to look for clinical trials in Parkinson's is clinicaltrials.gov LANGUAGE INTERPRETER documented in this encounter Progress Notes Richard Phan MD - 05/04/2018 12:00 AM CST DEIDRE PANG CSN: [id number] CLINIC NOTE NEUROLOGY PROGRESS NOTE DATE OF SERVICE: 05/04/2018 : 1955 CHIEF COMPLAINT: Followup Parkinson's. HISTORY OF PRESENT ILLNESS: Mr. Pang was seen in the company of his in followup of his Parkinson's. Last time I saw him was in July at [place]. He has done reasonably well since then. [...] without abnormal responses. There are no tremors. Ibuevz-gwvn-wbwptr and vfmz-mops-gwyd are accurate. There is minimal if any [...] visit: 15 minutes. 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
--- OUTSIDE RECORDS SUMMARY | 2022-02-02 11:52 | XMS_ITS | Encounter Summary ---
:1955 Author Organization [facility] Address [address] [place] [address] Care Team Providers Name Role Phone Lurdes Thomas MD Primary Care Provider Reason for Referral Specialty Diagnoses / Procedures Referred By Contact Refer red To Contact Maria Esther Phan MD [address] [place], [place] [address] Referral ID Status Reason Start Date Expiration Date Visits Requ ested Visits Authorized TRANSFER Reason for Visit Reason Comments Device Check Encounter Details Date Type Department Care Team Description 05/19/2015 Nursing Visit [facility] Shawnee Hilario, PD (Parkinson's [address] RN disease) [place] [address] Social History Tobacco Use Types [...] implantation. Surgeon:Dr. 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 Patient client server programmer range Left 2.4-2.8 Right 2.3-2.7 Total face to face programming time: 50 minutes Follow up: 6 months Supervising provider: Dr. Maria Esther Hilario, RN TRANSFER documented in this encounter Plan of Treatment Scheduled Referrals Name Type Priority Associated Diagnoses Order S chedule DBS PROGRAMMING CONSULT Referral Routine PD (Parkinson's O rdered: 05/19/2015, (AMB) disease) ([facility]) Expires: 04/22 documented as of this encounter Visit Diagnoses Diagnosis PD (Parkinson's disease) ([facility]) Paralysis agitans documented in this encounter Care Teams Agriculture Science Teacher Relationship Specialty Start Date End Date Lurdes Thomas MD PCP - General 06/18/14 12/11/19 documented as of this encounter
--- OUTSIDE RECORDS SUMMARY | 2022-02-02 11:52 | XMS_ITS | Encounter Summary ---
:1955 Author Organization [facility] Address [address] [place] [address] Care Team Providers Name Role Phone Lurdes Thomas MD Primary Care Provider Reason for Referral Specialty Diagnoses / Procedures Referred By Contact Refer red To Contact Maria Esther Phan MD [address] [place], [place] [address] Referral ID Status Reason Start Date Expiration Date Visits Requ ested Visits Authorized Reason for Visit Reason Comments Device Check Encounter Details Date Type Department Care Team Description 12/09/2014 Nursing Visit [facility] Doris Arauz, PD (Parkinson's disease) (Pr imary Dx); [address] [place] [address] Social History Tobacco Use Types [...] implantation. Surgeon: Dr. Gonzalez Rowland Surgery date/location: [facility] 09/09/14 Battery replacement: None Device type: Activia [...] Amp: 2.5, PW: 60, Rate: 150. Pt sql programmer analyst range: 2.1-2.7 Right SNT: 9 Negative, 10 Positive, Amp: 2.4, PW: 60, Rate: 150. Pt sql programmer analyst range: 2.0-2.6 Total face to [...] agitans documented in this encounter Care Teams Machine Bander And Cellophaner Relationship Specialty Start Date End Date Lurdes Thomas MD PCP - General 06/18/14 12/11/19 documented as of this encounter
--- OUTSIDE RECORDS SUMMARY | 2022-02-02 11:52 | XMS_ITS | Encounter Summary ---
:1955 Author Organization [facility] Address [address], [place] [address] Care Team Providers Name Role Phone Lurdes Thomas MD Primary Care Provider Reason for Visit Reason Comments Spine Lumbar Encounter Details Date Type Department Care Team Description 06/04/2015 Office Visit [place] [facility] Chris Cain, Right -sided low back Therapy Aurora Briggs, PT pain with right-sided [address] granados (Primary Dx) [place] [address] [place], [place] [phone] (Wo rk) Social History Tobacco Use Types Packs/Day Years Used Date Smoking Tobacco: Never Smokeless Tobacco: Never Alcohol Use Standard Drinks/Week Comments Yes 0 (1 standard drink = 0.6 oz pure alcoho l) Sex Assigned at Date Recorded Not on file documented as of this encounter Progress Notes Aurora Hickey, PT - 06/23/2015 2:07 PM CST Encounter date: 06/04/2015 Pt : 1955 [facility] Physical Therapy Progress Note Visit Number: 5 Initial Certification Period: 05/19/2015 to 08/17/15 Referring Provider: Dr. Maria Esther Phan Visit Diagnosis/ICD: Diagnosis ICD-10-CM ICD-9-CM 1. Right-sided low back pain with right-sided sciatica M54.41 724.3 Precautions: none Onset/Referral Date: 05/19/2015 Orders: Evaluate and treat. [facility] [facility] Services: Programming RN, Social Work, [...] above OBJ info and- manual therapy (CPT 03163) 10 min joint mobilization, supine end range thrust technique, right and left, repeated twice therapeutic ex (CPT 46492)25 min added hip series of stretches to combine some of the exercises he has been doing ultrasound (CPT 78149) 10 min US to right LB for [...] manual therapy, exercise progression, modalities if needed. T SERVICES AGENT documented in this encounter Plan of Treatment Not on filedocumented as of this encounter Visit Diagnoses Diagnosis Right-sided low back pain with right-beck ed sciatica (HRC) - Primary documented in this encounter Care Teams Production Team Advisor Relationship Specialty Start Date End Date Lurdes Thomas MD PCP - General 06/18/14 12/11/19 documented as of this encounter
--- OUTSIDE RECORDS SUMMARY | 2022-02-02 11:52 | XMS_ITS | Encounter Summary ---
:1955 Author Organization [facility] Address [address] [place] [address] Care Team Providers Name Role Phone Lurdes Thomas MD Primary Care Provider Encounter Details Date Type Department Care Team Description 05/09/2018 Telephone [facility] Princess Phan, Dist[facility] Neurology [address] [place] [address] [place], [place] [phone] (Wo rk) Social History Tobacco Use Types [...] script stating-- need to clarify medication Rytary 66.41-707 caps. Please advise. Nadia Persaud 05/09/2018, 9:20 AM EL REAMER documented in this encounter Plan of Treatment Not on filedocumented as of this encounter Visit Diagnoses Not on filedocumented in this encounter Care Teams Hot Patcher Relationship Specialty Start Date End Date Lurdes Thomas MD PCP - General 06/18/14 12/11/19 documented as of this encounter
--- OUTSIDE RECORDS SUMMARY | 2022-02-02 11:52 | XMS_ITS | Encounter Summary ---
:1955 Author Organization [facility] Address [address] [address] Care Team Providers Name Role Phone Lurdes Thomas MD Primary Care Provider Reason for Visit Reason Comments Spine Lumbar Encounter Details Date Type Department Care Team Description 06/30/2015 Office Visit [place] [facility] Chris Cain, Right -sided low back Therapy Aurora Briggs, PT pain with right-sided [address] granados (Primary Dx) [place] [address] [place], [place] [phone] (Wo rk) Social History Tobacco Use Types Packs/Day Years Used Date Smoking Tobacco: Never Smokeless Tobacco: Never Alcohol Use Standard Drinks/Week Comments Yes 0 (1 standard drink = 0.6 oz pure alcoho l) Sex Assigned at Date Recorded Not on file documented as of this encounter Progress Notes Aurora Hickey, PT - 06/30/2015 11:02 AM CST Encounter date: 06/30/2015 Pt : 1955 [facility] Physical Therapy Progress Note Visit Number: 11 Initial Certification Period: 05/19/2015 to 08/17/15 Referring Provider: Dr. Maria Esther Phan Visit Diagnosis/ICD: Diagnosis ICD-10-CM ICD-9-CM 1. Right-sided low back pain with right-sided sciatica M54.41 724.3 Precautions: none Onset/Referral Date: 05/19/2015 Orders: Evaluate and treat. [facility] Services: Programming RN, Social Work, [...] above OBJ info and- therapeutic ex (CPT 49107)20 min reviewed flexion in step standing, left, [...] PA pressure on spinal segments ultrasound (CPT 09604) 12 min US to right LB for 10 min, 1.3 w/cm2, continuous manual therapy (CPT 37449) 15 min joint mobilization to lumbar spine gr 3 soft tissue mobilization, and use of club room attendant tool to T and lumbar paraspinals Afterwards [...] has not contacted his insurance company yet SCREW ASSEMBLER documented in this encounter Plan of Treatment Not on filedocumented as of this encounter Visit Diagnoses Diagnosis Right-sided low back pain with right-beck ed sciatica (HRC) - Primary documented in this encounter Care Teams Vegetable Specker Relationship Specialty Start Date End Date Lurdes Thomas MD PCP - General 06/18/14 12/11/19 documented as of this encounter
--- OUTSIDE RECORDS SUMMARY | 2022-02-02 11:52 | XMS_ITS | Encounter Summary ---
:1955 Author Organization [facility] Address [address] [address] Care Team Providers Name Role Phone Lurdes Thomas MD Primary Care Provider Reason for Visit Reason Comments Spine Lumbar Encounter Details Date Type Department Care Team Description 07/16/2015 Office Visit [place] [facility] Chris Cain, Right -sided low back Therapy Aurora Briggs, PT pain with right-sided [address] granados (Primary Dx) [place] [address] [place], [place] [phone] (Wo rk) Social History Tobacco Use Types Packs/Day Years Used Date Smoking Tobacco: Never Smokeless Tobacco: Never Alcohol Use Standard Drinks/Week Comments Yes 0 (1 standard drink = 0.6 oz pure alcoho l) Sex Assigned at Date Recorded Not on file documented as of this encounter Progress Notes Aurora Hickey, PT - 07/19/2015 1:13 PM CST Encounter date: 07/16/2015 Pt : 1955 [facility] Physical Therapy Progress Note/Discharge Summary Visit Number: 14 Initial Certification Period: 05/19/2015 to 08/17/15 Referring Provider: Dr. Maria Esther Phan Visit Diagnosis/ICD: Diagnosis ICD-10-CM ICD-9-CM 1. Right-sided low back pain with right-sided sciatica M54.41 724.3 Precautions: none Onset/Referral Date: 05/19/2015 Orders: Evaluate and treat. [facility] Services: Programming RN, Social Work, [...] above OBJ info and- therapeutic ex (CPT 01429)15 min reviewed /discussed HEP, home management, body mechanics with lifting, turning, pivoting ultrasound (CPT 83168) 12 min US to right LB for 10 min, 1.3 w/cm2, continuous manual therapy (CPT 68712) 18 min joint mobilization to lumbar spine [...] 75- 85% improvement Plan: will [facility] to [facility] at this time, encouraged Andrew to call if any questions, or return if needed Encounter Date: 07/16/2015 Pt : 1955 [facility] Physical Therapy Discharge Summary Patient [...] to return to therapy if symptoms recur. SPRING FABRICATION SUPERVISOR documented in this encounter Plan of Treatment Not on filedocumented as of this encounter Visit Diagnoses Diagnosis Right-sided low back pain with right-beck ed sciatica (HRC) - Primary documented in this encounter Care Teams Patrol Supervisor Relationship Specialty Start Date End Date Lurdes Thomas MD PCP - General 06/18/14 12/11/19 documented as of this encounter
--- OUTSIDE RECORDS SUMMARY | 2022-02-02 11:52 | XMS_ITS | Encounter Summary ---
:1955 Author Organization [facility] Address [address] [address] Care Team Providers Name Role Phone Lurdes Thomas MD Primary Care Provider Reason for Visit Reason Comments Refill Encounter Details Date Type Department Care Team Description 07/31/2018 Telephone [facility] [place] [facility] Shawnee Hilario, RN Refill [address] [place], [place] [address] Social History Tobacco Use [...] Hilario RN - 07/31/2018 10:11 AM CDT [facility] calling for refill on GoCovri. To be faxed to [phone]. He is seen at [facility], not [facility]. Please take care of. documented in this encounter Plan of Treatment Not on filedocumented as of this encounter Visit Diagnoses Not on filedocumented in this encounter Care Teams Residential Sales Relationship Specialty Start Date End Date Serum, Lurdes C, MD PCP - General 06/18/14 12/11/19 documented as of this encounter
--- OUTSIDE RECORDS SUMMARY | 2022-02-02 11:52 | XMS_ITS | Encounter Summary ---
:1955 Author Organization [facility] Address [address] [address] Care Team Providers Name Role Phone Lurdes Thomas MD Primary Care Provider Reason for Visit Reason Comments QUESTIONS, GENERAL Encounter Details Date Type Department Care Team Description 05/04/2018 Telephone [facility] Walker, GENERAL [facility] MD [facility] [address] [facility] [address] [place] [address] [phone] (Wo rk) Social History Tobacco Use Types [...] advise . Jeannette Michael 05/04/2018, 10:51 AM IPLE TUBE WINDING MACHINE OPERATOR documented in this encounter Plan of Treatment Not on filedocumented as of this encounter Visit Diagnoses Not on filedocumented in this encounter Care Teams Commercial Service Technician Relationship Specialty Start Date End Date Lurdes Thomas MD PCP - General 06/18/14 12/11/19 documented as of this encounter
--- OUTSIDE RECORDS SUMMARY | 2022-02-02 11:52 | XMS_ITS | Encounter Summary ---
:1955 Author Organization [facility] Address [address], [place] [address] Care Team Providers Name Role Phone Lurdes Thomas MD Primary Care Provider Reason for Visit Reason Comments Prior Authorization For Medication Gocovri Encounter Details Date Type Department Care Team Description 08/15/2017 Telephone [place] [facility] Doris Arauz, Prior Authorization For [address] classifications officer cc/cm (Gocovri) [place], [place] [address] Social History Tobacco Use Types Packs/Day Years [...] phone. Pt's Insurer: Eleazar Insurer's contact #: [phone] Name of Drug: Goocovri 137mg Dx for Drug: dyskinesia due to PD medications Tried/failed drugs: Amantadine Medication was approved. Approval dates: 07/16/17 to 08/15/18 Case#: [id number] FYI documented in this encounter Plan of Treatment Not on filedocumented as of this encounter Visit Diagnoses Not on filedocumented in this encounter Care Teams Plant Taxonomy Teacher Relationship Specialty Start Date End Date Lurdes Thomas MD PCP - General 06/18/14 12/11/19 documented as of this encounter
--- OUTSIDE RECORDS SUMMARY | 2022-02-02 11:52 | XMS_ITS | Encounter Summary ---
:1955 Author Organization [facility] Address [address] [address] Care Team Providers Name Role Phone Lurdes Thomas MD Primary Care Provider Reason for Visit Reason Comments Spine Lumbar Encounter Details Date Type Department Care Team Description 06/08/2015 Office Visit [place] [facility] Chris Cain, Right -sided low back Therapy Aurora Briggs, PT pain with right-sided [address] granados (Primary Dx) [place] [address] [place], [place] [phone] (Wo rk) Social History Tobacco Use Types Packs/Day Years Used Date Smoking Tobacco: Never Smokeless Tobacco: Never Alcohol Use Standard Drinks/Week Comments Yes 0 (1 standard drink = 0.6 oz pure alcoho l) Sex Assigned at Date Recorded Not on file documented as of this encounter Progress Notes Aurora Hickey, PT - 06/23/2015 2:05 PM CST Encounter date: 06/08/2015 Pt : 1955 [facility] Note Visit Number: 6) Initial Certification Period: 05/19/2015 to 08/17/15 Referring Provider: Dr. Maria Esther Phan Visit Diagnosis/ICD: Diagnosis ICD-10-CM ICD-9-CM 1. Right-sided low back pain with right-sided sciatica M54.41 724.3 Precautions: none Onset/Referral Date: 05/19/2015 Orders: Evaluate and treat. [facility] Services: Programming RN, Social Work, [...] above OBJ info and- manual therapy (CPT 67002) 10 min joint mobilization, supine end range thrust technique, right and left, repeated twice therapeutic ex (CPT 03678)25 min hip series of stretches to combine some of the exercises he has been doing added flexion in step standing, left, than right side glide left added single leg raise in hands/knees position, 5 sec hold ultrasound (CPT 37507) 12 min US to right LB for [...] manual therapy, exercise progression, modalities if needed. NTIFIC ILLUSTRATOR documented in this encounter Plan of Treatment Not on filedocumented as of this encounter Visit Diagnoses Diagnosis Right-sided low back pain with right-beck ed sciatica (HRC) - Primary documented in this encounter Care Teams Ticket Sales Agent Relationship Specialty Start Date End Date Lurdes Thomas MD PCP - General 06/18/14 12/11/19 documented as of this encounter
--- OUTSIDE RECORDS SUMMARY | 2022-02-02 11:52 | XMS_ITS | Encounter Summary ---
:1955 Author Organization [facility] Address [address], [place] [address] Care Team Providers Name Role Phone Lurdes Thomas MD Primary Care Provider Reason for Visit Reason Comments Forms Encounter Details Date Type Department Care Team Description 11/12/2014 Telephone [place] [facility] Doris Arauz, RN Forms [address] [place], [place] [address] Social History Tobacco Use [...] on filedocumented in this encounter Care Teams Ui Software Developer Relationship Specialty Start Date End Date Lurdes Thomas MD PCP - General 06/18/14 12/11/19 documented as of this encounter
--- OUTSIDE RECORDS SUMMARY | 2022-02-02 11:52 | XMS_ITS | Encounter Summary ---
:1955 Author Organization [employer] Address [address] [address] Care Team Providers Name Role Phone Lurdes Thomas MD Primary Care Provider Reason for Visit Reason Comments No Show Encounter Details Date Type Department Care Team Description 03/03/2015 Telephone [facility] Shawnee Hilario, RN No Show [address] [place], [place] [address] Social History Tobacco Use [...] and leave him a message. I called [phone] and it sounded like someone answered but no voice heard. Iwill try later. documented in this encounter Plan of Treatment Not on filedocumented as of this encounter Visit Diagnoses Not on filedocumented in this encounter Care Teams Descriptive Catalog Librarian Relationship Specialty Start Date End Date Lurdes Thomas MD PCP - General 06/18/14 12/11/19 documented as of this encounter
--- OUTSIDE RECORDS SUMMARY | 2022-02-02 11:52 | XMS_ITS | Encounter Summary ---
:1955 Author Organization [facility] Address [address] [address] Care Team Providers Name Role Phone Lurdes Thomas MD Primary Care Provider Reason for Visit Reason Comments Spine Lumbar Encounter Details Date Type Department Care Team Description 07/09/2015 Office Visit [place] [facility] Chris Cain, Right -sided low back Therapy Aurora Briggs, PT pain with right-sided [address] granados (Primary Dx) [place] [address] [place], [place] [phone] (Wo rk) Social History Tobacco Use Types Packs/Day Years Used Date Smoking Tobacco: Never Smokeless Tobacco: Never Alcohol Use Standard Drinks/Week Comments Yes 0 (1 standard drink = 0.6 oz pure alcoho l) Sex Assigned at Date Recorded Not on file documented as of this encounter Progress Notes Aurora Hickey, PT - 07/09/2015 8:51 AM CST Encounter date: 07/09/2015 Pt : 1955 [facility] Physical Therapy Progress Note Visit Number: 13 Initial Certification Period: 05/19/2015 to 08/17/15 Referring Provider: Dr. Maria Esther Phan Visit Diagnosis/ICD: Diagnosis ICD-10-CM ICD-9-CM 1. Right-sided low back pain with right-sided sciatica M54.41 724.3 Precautions: none Onset/Referral Date: 05/19/2015 Orders: Evaluate and treat. [facility] Services: Programming RN, Social Work, [...] above OBJ info and- therapeutic ex (CPT 70883)15 min reviewed /discussed HEP, home management, body mechanics with lifting, turning, pivoting ultrasound (CPT 88784) 12 min US to right LB for 10 min, 1.3 w/cm2, continuous manual therapy (CPT 34823) 18 min joint mobilization to lumbar spine [...] then he sees his MD for recheck END TESTER documented in this encounter Plan of Treatment Not on filedocumented as of this encounter Visit Diagnoses Diagnosis Right-sided low back pain with right-beck ed sciatica (HRC) - Primary documented in this encounter Care Teams Automotive Internet Sales Manager Relationship Specialty Start Date End Date Lurdes Thomas MD PCP - General 06/18/14 12/11/19 documented as of this encounter
--- OUTSIDE RECORDS SUMMARY | 2022-02-02 11:52 | XMS_ITS | Encounter Summary ---
:1955 Author Organization [facility] Address [address] [address] Care Team Providers Name Role Phone Lurdes Thomas MD Primary Care Provider Reason for Visit Reason Comments Spine Lumbar Encounter Details Date Type Department Care Team Description 05/26/2015 Office Visit [place] [facility] Chris Cain, Right -sided low back Therapy Aurora Briggs, PT pain with right-sided [address] granados (Primary Dx) [place] [address] [place], [place] [phone] (Wo rk) Social History Tobacco Use Types Packs/Day Years Used Date Smoking Tobacco: Never Smokeless Tobacco: Never Alcohol Use Standard Drinks/Week Comments Yes 0 (1 standard drink = 0.6 oz pure alcoho l) Sex Assigned at Date Recorded Not on file documented as of this encounter Progress Notes Aurora Hickey, PT - 05/26/2015 10:30 AM CST Encounter date: 05/26/2015 Pt : 1955 [facility] Physical Therapy Progress Note Visit Number: 2 Initial Certification Period: 05/19/2015 to 08/17/15 Referring Provider: Dr. Maria Esther Phan Visit Diagnosis/ICD: Diagnosis ICD-10-CM ICD-9-CM 1. Right-sided low back pain with right-sided sciatica M54.41 724.3 Precautions: none Onset/Referral Date: 05/19/2015 Reason for Referral: -Outpatient PT. Orders: Evaluate and treat. [facility] Services: Programming RN, Social Work, therapy in the past Exacerbation Date: 04/21/2015 Last Referring MD Visit: 05/19/2015 SUBJECTIVE: Andrew is new to me today, initially assessed at [facility], and referred to [facility] location for convenience, and orthopedic care for [...] with REIL Treatment/Education Today: therapeutic ex (CPT 89779)15 min time spent with orthopedic assessment manual therapy (CPT 09304) 15 min in prone, general mobilization. afterwards, (-) prone knee flexion test, but pain with transitional movements In supine, end range rotational thrust to the right, repeated twice, and to the left, with cavitation. Afterwards, no pain with supine to sit, and sit to stand. 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
--- OUTSIDE RECORDS SUMMARY | 2022-02-02 11:52 | XMS_ITS | Encounter Summary ---
:1955 Author Organization [facility] Address [address] [address] Care Team Providers Name Role Phone Lurdes Thomas MD Primary Care Provider Encounter Details Date Type Department Care Team Description 02/02/2015 Notes/Orders [place] [facility] Katalina Laughlin, PT [address] [place] [address] [place] [address] [place], [place] [phone] (Wo rk) Social History Tobacco Use [...] 90 day(s). Katalina Laughlin PT Physical Therapist [place] License # [id number] documented in this encounter Plan of Treatment Not on filedocumented as of this encounter Visit Diagnoses Not on filedocumented in this encounter Care Teams Bologna Maker Relationship Specialty Start Date End Date Lurdes Thomas MD PCP - General 06/18/14 12/11/19 documented as of this encounter
--- OUTSIDE RECORDS SUMMARY | 2022-02-02 11:52 | XMS_ITS | Encounter Summary ---
:1955 Author Organization [employer] Address [address] [address] Care Team Providers Name Role Phone Lurdes Thomas MD Primary Care Provider Reason for Visit Reason Comments Other Encounter Details Date Type Department Care Team Description 12/09/2014 Telephone [place] [facility] Doris Arauz, RN Other [address] [place], [place] [address] Social History Tobacco Use [...] agitans documented in this encounter Care Teams Personal Financial Counselor Relationship Specialty Start Date End Date Lurdes Thomas MD PCP - General 06/18/14 12/11/19 documented as of this encounter
--- OUTSIDE RECORDS SUMMARY | 2022-02-02 11:52 | XMS_ITS | Encounter Summary ---
:1955 Author Organization [facility] Address [address] [place] [address] Care Team Providers Name Role Phone Lurdes Thomas MD Primary Care Provider Reason for Visit Reason Comments Medication Questions Encounter Details Date Type Department Care Team Description 12/08/2014 Telephone [place] [facility] Sheri Pearson, Medication Questions [address] corina B[place], [place] [address] Social History Tobacco Use [...] on filedocumented in this encounter Care Teams Lawn Care Worker Relationship Specialty Start Date End Date Lurdes Thomas MD PCP - General 06/18/14 12/11/19 documented as of this encounter
--- OUTSIDE RECORDS SUMMARY | 2022-02-02 11:52 | XMS_ITS | Encounter Summary ---
:1955 Author Organization [facility] Address [address] [address] Care Team Providers Name Role Phone Lurdes Thomas MD Primary Care Provider Reason for Visit Reason Comments Paperwork Gocovri Encounter Details Date Type Department Care Team Description 08/09/2017 Notes/Orders [place] [facility] Doris Arauz, RN [address] corina [place], [place] [address] Social History Tobacco Use Types Packs/Day Years Used Date Smoking Tobacco: Never Smokeless Tobacco: Never Alcohol Use Standard Drinks/Week Comments Yes 0 (1 standard drink = 0.6 oz pure alcoho l) Sex Assigned at Date Recorded Not on file documented as of this encounter Progress Notes Doris Arauz RN - 08/09/2017 2:43 PM CDT Faxed completed [employer] paperwork and Rx to [facility] [employer]. FAX: [phone] documented in this encounter Plan of Treatment Not on filedocumented as of this encounter Visit Diagnoses Not on filedocumented in this encounter Care Teams Nutrition Consultant Relationship Specialty Start Date End Date Lurdes Thomas MD PCP - General 06/18/14 12/11/19 documented as of this encounter
--- OUTSIDE RECORDS SUMMARY | 2022-02-02 11:52 | XMS_ITS | Encounter Summary ---
:1955 Author Organization [facility] Address [address], [place] [address] Care Team Providers Name Role Phone Lurdes Thomas MD Primary Care Provider Reason for Visit Reason Comments Spine Lumbar Encounter Details Date Type Department Care Team Description 06/18/2015 Office Visit [place] [facility] Chris Cain, Right -sided low back Therapy Aurora Briggs, PT pain with right-sided [address] granados (Primary Dx) [place] [address] [place], [place] [phone] (Wo rk) Social History Tobacco Use Types Packs/Day Years Used Date Smoking Tobacco: Never Smokeless Tobacco: Never Alcohol Use Standard Drinks/Week Comments Yes 0 (1 standard drink = 0.6 oz pure alcoho l) Sex Assigned at Date Recorded Not on file documented as of this encounter Progress Notes Aurora Hickey, PT - 06/23/2015 2:02 PM CST Encounter date: 06/18/2015 Pt : [address] [facility] Physical Therapy Progress Note Visit Number: 9 Initial Certification Period: 05/19/2015 to 08/17/15 Referring Provider: Dr. Maria Esther Phan Visit Diagnosis/ICD: Diagnosis ICD-10-CM ICD-9-CM 1. Right-sided low back pain with right-sided sciatica M54.41 724.3 Precautions: none Onset/Referral Date: 05/19/2015 Orders: Evaluate and treat. [facility] Services: Programming RN, Social Work, [...] above OBJ info and- therapeutic ex (CPT 89770)20 min side glides left reviewed flexion in step standing, left, than right. He still gets a little glitch on right side single leg raise in hands/knees position, 5 sec hold - in 1/2 sitting, hip hiking right for QL. He reports feeling an excellent stretch with this, no pain. ultrasound (CPT 99283) 11 min US to right LB for 10 min, 1.3 w/cm2, continuous manual therapy (CPT 47516) 12 min soft tissue mobilization, and use of head soft sugar operator tool to T and lumbar paraspinals [...] therapy beyondinitial 6 that are set up CONSULTANT documented in this encounter Plan of Treatment Not on filedocumented as of this encounter Visit Diagnoses Diagnosis Right-sided low back pain with right-beck ed sciatica (HRC) - Primary documented in this encounter Care Teams Bridge Carpenter Relationship Specialty Start Date End Date Lurdes Thomas MD PCP - General 06/18/14 12/11/19 documented as of this encounter
--- OUTSIDE RECORDS SUMMARY | 2022-02-02 11:52 | XMS_ITS | Encounter Summary ---
:1955 Author Organization [employer] Address [address] [address] Care Team Providers Name Role Phone Lurdes Thomas MD Primary Care Provider Reason for Visit Reason Comments Sleep problems Back Pain Questions Encounter Details Date Type Department Care Team Description 12/02/2014 Office Visit [facility] Parashos, Maria Esther Paralysis agitans [address], MD (Primary Dx) Drive [address] [facility] [address] [place], [place] [phone] (Wo rk) Social History Tobacco Use Types [...] Body Mass Index 27.73 07/08/2014 8:56 AM SR. DIRECTOR PRODUCT MANAGEMENT documented in this encounter Patient Instructions Patient InstructionsMaria Esther Phan MD - 12/02/2014 3:43 PM CDT Please call the [facility] nurse line for any questions, [...] agitans documented in this encounter Care Teams Graphic Design Intern Relationship Specialty Start Date End Date Lurdes Thomas MD PCP - General 06/18/14 12/11/19 documented as of this encounter
--- OUTSIDE RECORDS SUMMARY | 2022-02-02 11:52 | XMS_ITS | Encounter Summary ---
:1955 Author Organization [facility] Address [address], [place] [address] Care Team Providers Name Role Phone Lurdes Thomas MD Primary Care Provider Reason for Visit Reason Comments Spine Lumbar Encounter Details Date Type Department Care Team Description 07/02/2015 Office Visit [facility] Chris Cain, Right -sided low back Therapy Aurora Briggs, PT pain with right-sided [address] granados (Primary Dx) [place] [address] [place], [place] [phone] (Wo rk) Social History Tobacco Use Types Packs/Day Years Used Date Smoking Tobacco: Never Smokeless Tobacco: Never Alcohol Use Standard Drinks/Week Comments Yes 0 (1 standard drink = 0.6 oz pure alcoho l) Sex Assigned at Date Recorded Not on file documented as of this encounter Progress Notes Aurora Hickey, PT - 07/02/2015 11:56 AM CST Encounter date: 07/02/2015 Pt : 1955 Jasmine [facility] Physical Therapy Progress Note Visit Number: 12 Initial Certification Period: 05/19/2015 to 08/17/15 Referring Provider: Dr. Maria Esther Phan Visit Diagnosis/ICD: Diagnosis ICD-10-CM ICD-9-CM 1. Right-sided low back pain with right-sided sciatica M54.41 724.3 Precautions: none Onset/Referral Date: 05/19/2015 Orders: Evaluate and treat. [facility] Services: Programming RN, Social Work, [...] above OBJ info and- therapeutic ex (CPT 12679)20 min reviewed and practiced H/K's position cat camel and hand knee rock,and opp arm/leg raise ultrasound (CPT 40571) 10 min US to right LB for 10 min, 1.3 w/cm2, continuous manual therapy (CPT 71187) 15 min joint mobilization to lumbar spine gr 3 soft tissue mobilization, and use of temperature control inspector tool to T and lumbar paraspinals Afterwards [...] his neurologist for his brain stimulator recheck HEALTH CNA documented in this encounter Plan of Treatment Not on filedocumented as of this encounter Visit Diagnoses Diagnosis Right-sided low back pain with right-beck ed sciatica (HRC) - Primary documented in this encounter Care Teams Property Clerk Relationship Specialty Start Date End Date Lurdes Thomas MD PCP - General 06/18/14 12/11/19 documented as of this encounter
--- OUTSIDE RECORDS SUMMARY | 2022-02-02 11:52 | XMS_ITS | Encounter Summary ---
:1955 Author Organization [facility] Address [address] [place] [address] Care Team Providers Name Role Phone Lurdes Thomas MD Primary Care Provider Reason for Referral Specialty Diagnoses / Procedures Referred By Contact Refer red To Contact Maria Esther Phan MD [address] [place], [place] [address] Referral ID Status Reason Start Date Expiration Date Visits Requ ested Visits Authorized Reason for Visit Reason Comments Device Check Encounter Details Date Type Department Care Team Description 11/12/2014 Nursing Visit [facility] Doris Arauz, [place] [address] corina BERRY [place], [place] [address] Social History Tobacco Use [...] implantation. Surgeon: Dr. Gonzalez Rowland Surgery date/location: [facility], 09/09/14 Battery replacement: None Device type: [...] check. Therapy impedence: 1410 on 1.579. Pt systems programmer analyst range: 2.1-2.7 R STN: 10 Positive, 9 Negative, Amp: 2.1, PW: 60, Rate: 150. No problems found on 1.5v impedence check. Therapy impedence: 1149 on 1.831. Pt systems programmer analyst range: 1.7-2.5 Final settings: No [...] agitans documented in this encounter Care Teams Independent Sales Representative Relationship Specialty Start Date End Date Lurdes Thomas MD PCP - General 06/18/14 12/11/19 documented as of this encounter
--- OUTSIDE RECORDS SUMMARY | 2022-02-02 11:52 | XMS_ITS | Encounter Summary ---
:1955 Author Organization [employer] Address [address] [place] [address] Care Team Providers Name Role Phone Lurdes Thomas MD Primary Care Provider Reason for Visit Reason Comments Sleep problems Encounter Details Date Type Department Care Team Description 11/12/2014 Telephone [facility] Doris Arauz, RN Sleep problems [address] [place], [place] [address] Social History Tobacco Use [...] on filedocumented in this encounter Care Teams Infectious Disease Technician Relationship Specialty Start Date End Date Lrudes Thomas MD PCP - General 06/18/14 12/11/19 documented as of this encounter
--- OUTSIDE RECORDS SUMMARY | 2022-02-02 11:52 | XMS_ITS | Encounter Summary ---
:1955 Author Organization [facility] Address [address] [address] Care Team Providers Name Role Phone Lurdes Thomas MD Primary Care Provider Reason for Visit Reason Comments Spine Lumbar Encounter Details Date Type Department Care Team Description 06/10/2015 Office Visit [facility] Chris Cain, Right -sided low back Therapy Aurora Briggs, PT pain with right-sided [address] granados (Primary Dx) [place] [address] [place], [place] [phone] (Wo rk) Social History Tobacco Use Types Packs/Day Years Used Date Smoking Tobacco: Never Smokeless Tobacco: Never Alcohol Use Standard Drinks/Week Comments Yes 0 (1 standard drink = 0.6 oz pure alcoho l) Sex Assigned at Date Recorded Not on file documented as of this encounter Progress Notes Aurora Hickey, PT - 06/23/2015 2:04 PM CST Encounter date: 06/10/2015 Pt : [address] [facility] Physical Therapy Progress Note Visit Number: 7 Initial Certification Period: 05/19/2015 to 08/17/15 Referring Provider: Dr. Maria Esther Phan Visit Diagnosis/ICD: Diagnosis ICD-10-CM ICD-9-CM 1. Right-sided low back pain with right-sided sciatica M54.41 724.3 Precautions: none Onset/Referral Date: 05/19/2015 Orders: Evaluate and treat. [facility] Services: Programming RN, Social Work, [...] above OBJ info and- therapeutic ex (CPT 35389)12 min hip series of stretches to combine some of the exercises he has been doing reviewed flexion in step standing, left, than right. He still gets a little glitch on right side side glide left single leg raise in hands/knees position, 5 sec hold manual therapy (CPT 51245) 10 min In left sanchez position, MET to low T and lumbar spine ultrasound (CPT 68221) 11 min US to right LB for 10 min, 1.3 w/cm2, continuous manual therapy (CPT 06163) 12 min soft tissue mobilization use of auditor/quality tool to T and lumbar parsspinals Timed [...] manual therapy, exercise progression, modalities if needed. TOR USE ASSISTANT documented in this encounter Plan of Treatment Not on filedocumented as of this encounter Visit Diagnoses Diagnosis Right-sided low back pain with right-beck ed sciatica (HRC) - Primary documented in this encounter Care Teams Gang Drill Operator Relationship Specialty Start Date End Date Lurdes Thomas MD PCP - General 06/18/14 12/11/19 documented as of this encounter
--- OUTSIDE RECORDS SUMMARY | 2022-02-02 11:52 | XMS_ITS | Encounter Summary ---
:1955 Author Organization [facility] Address [address], [place] [address] Care Team Providers Name Role Phone Lurdes Thomas MD Primary Care Provider Reason for Visit Reason Comments Spine Lumbar Encounter Details Date Type Department Care Team Description 06/02/2015 Office Visit [facility] Chris Cain, Right -sided low back Therapy Aurora Briggs, PT pain with right-sided [address] granados (Primary Dx) [place] [address] [place], [place] [phone] (Wo rk) Social History Tobacco Use Types Packs/Day Years Used Date Smoking Tobacco: Never Smokeless Tobacco: Never Alcohol Use Standard Drinks/Week Comments Yes 0 (1 standard drink = 0.6 oz pure alcoho l) Sex Assigned at Date Recorded Not on file documented as of this encounter Progress Notes Aurora Hickey, PT - 06/02/2015 10:07 AM CST Encounter date: 06/02/2015 Pt : 1955 [facility] Physical Therapy Progress Note Visit Number: 3 Initial Certification Period: 05/19/2015 to 08/17/15 Referring Provider: Dr. Maria Esther Phan Visit Diagnosis/ICD: Diagnosis ICD-10-CM ICD-9-CM 1. Right-sided low back pain with right-sided sciatica M54.41 724.3 Precautions: none Onset/Referral Date: 05/19/2015 Reason for Referral: -Outpatient PT. Orders: Evaluate and treat. [facility] Services: Programming RN, Social Work, [...] with REIL Treatment/Education Today: therapeutic ex (CPT 91684)5 min time spent with orthopedic assessment ultrasound (CPT 07665) 12 min US to right LB for 10 min, 1.3 w/cm2, continous therapeutic ex (CPT 11746) 30 min Reviewed and practiced his HEP: [...] manual therapy, exercise progression, modalities if needed. WRAPPER documented in this encounter Plan of Treatment Not on filedocumented as of this encounter Visit Diagnoses Diagnosis Right-sided low back pain with right-beck ed sciatica (HRC) - Primary documented in this encounter Care Teams Timekeeper Supervisor Relationship Specialty Start Date End Date Lurdes Thomas MD PCP - General 06/18/14 12/11/19 documented as of this encounter
--- OUTSIDE RECORDS SUMMARY | 2022-02-02 11:52 | XMS_ITS | Encounter Summary ---
:1955 Author Organization [facility] Address [address], [place] [address] Care Team Providers Name Role Phone Lurdes Thomas MD Primary Care Provider Reason for Visit Reason Comments Social Service Encounter Details Date Type Department Care Team Description 05/19/2015 Office Visit [facility] Fabi Beverly, Parkinson' s disease Services SCENE PAINTER (Primary Dx) [address] [place] [address] Social History Tobacco Use Types [...] stress and workplace environment. 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 He is trying to do parts of [...] information provided for future concerns or questions. ARYNGOLOGY PHYSICIAN documented in this encounter Plan of Treatment Not on filedocumented as of this encounter Visit Diagnoses Diagnosis Parkinson's disease (HRC) - Primary documented in this encounter Care Teams Medical Language Specialist Relationship Specialty Start Date End Date Lurdes Thomas MD PCP - General 06/18/14 12/11/19 documented as of this encounter
--- OUTSIDE RECORDS SUMMARY | 2022-02-02 11:52 | XMS_ITS | Encounter Summary ---
:1955 Author Organization [employer] Address [address] [place] [address] Care Team Providers Name Role Phone Lurdes Thomas MD Primary Care Provider Reason for Visit Reason Comments Research Encounter Details Date Type Department Care Team Description 05/21/2015 Telephone [facility] Maria Esther Phan MD Research [address] [place], [place] [address] [place] [address] (Wo rk) Social History Tobacco [...] [facility] would like to pursue the study and understands that enrollment may close before he hasbeen stable for 60 days on a different anti-depressant. Zoloft is an acceptable medication. Pharmacyhas been updated. Please write specific instructions on this switch. SS DATABASE DEVELOPER documented in this encounter Plan of Treatment Not on filedocumented as of this encounter Visit Diagnoses Not on filedocumented in this encounter Care Teams Small Kick Press Operator Relationship Specialty Start Date End Date Lurdes Thomas MD PCP - General 06/18/14 12/11/19 documented as of this encounter
--- OUTSIDE RECORDS SUMMARY | 2022-02-02 11:52 | XMS_ITS | Encounter Summary ---
:1955 Author Organization [facility] Address [address] [place] [address] Care Team Providers Name Role Phone Lurdes Thomas MD Primary Care Provider Reason for Referral Specialty Diagnoses / Procedures Referred By Contact Refer red To Contact Maria Esther Phan MD [address] [place], [place] [address] Referral ID Status Reason Start Date Expiration Date Visits Requ ested Visits Authorized Reason for Visit Reason Comments VOICE, LOSS OF Encounter Details Date Type Department Care Team Description 11/04/2014 Initial Consult [facility] Casi De La Rosa (Primary Dx); Therapy J, MANDREL MAKER Dysphonia; [address] [place], [place] [address] [phone] Social History Tobacco Use Types Packs/Day Years Used Date Smoking Tobacco: Never Smokeless Tobacco: Never Alcohol Use Standard Drinks/Week Comments Yes 0 (1 standard drink = 0.6 oz pure alcoho l) Sex Assigned at Date Recorded Not on file documented as of this encounter Progress Notes Casi De La Rosa, MANDREL MAKER - 11/04/2014 4:56 PM CDT Encounter Date: 11/04/2014 Patient : 1955 Speech Therapy - Parkinson's Disease Evaluation and Plan of Care [facility] [...] feels it is slightly worse. 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 He is on the phone a [...] Any liquids. Previous Speech Therapy: Received at [facility]. Evaluation 08/23/07 - WFL. Evaluation 06/18/14 with recommendation for treatment. He did not follow up then. Is ready to pursue treatmentnow. Hand Dominance: Right Hearing Acuity: Within Functional Limits. Glasses: Reading glasses. Education: High school. 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 Marital Status: . Living Environment: [...] on his own. Recommendations: Individual speech therapy. Manager Agriculture Speech Goal: Client will be able to be understood without repetition 80% of the time in their daily environment as measured by patient report. Mcfp Swallowing Goal: -None Mcfp Memory/Cognition Goal: None. Short Term Goals: -Independent [...] achieve intelligible loudness. Goals Achieved Today at [facility]: -Client and/or family verbalized comprehension of today's [...] family in agreement with care plan. The vet tech is completed by the therapist, and the referring clinician's electronic signature certifies medical necessity for the plan above. documented in this encounter Plan of Treatment Scheduled Referrals Name Type Priority Associated Diagnoses Order [facility] Speech Therapy Referral Routine Paralysis agitans (HRC) Or dered: 11/04/2014, Expires: 2014 documented as of this encounter Visit Diagnoses Diagnosis Paralysis agitans (HRC) - Primary Paralysis agitans Dysphonia Dysarthria documented in this encounter Care Teams Loaders Relationship Specialty Start Date End Date Lurdes Thomas MD PCP - General 06/18/14 12/11/19 documented as of this encounter
--- OUTSIDE RECORDS SUMMARY | 2022-02-02 11:52 | XMS_ITS | Encounter Summary ---
:1955 Author Organization [employer] Address [address] [place] [address] Care Team Providers Name Role Phone Lurdes Thomas MD Primary Care Provider Reason for Visit Reason Comments Questions Encounter Details Date Type Department Care Team Description 11/28/2014 Telephone [facility] Doris Arauz RN Questions [address] [place], [place] [address] Social History Tobacco Use [...] on filedocumented in this encounter Care Teams Underwriting Sales Representative Relationship Specialty Start Date End Date Lurdes Thomas MD PCP - General 06/18/14 12/11/19 documented as of this encounter
--- OUTSIDE RECORDS SUMMARY | 2022-02-02 11:53 | XMS_ITS | Encounter Summary ---
:1955 Author Organization [employer] Address [address] [address] Care Team Providers Name Role Phone Lurdes Thomas MD Primary Care Provider Reason for Visit Reason Comments Other Encounter Details Date Type Department Care Team Description 07/08/2014 Nursing Visit [facility] Doris Arauz, PD (Parkinson's [address] RN disease) ( Primary Dx) [place] [address] Social History Tobacco Use Types [...] Dr. Kp Phan. MD Doris Arauz, RN J2EE SOFTWARE ENGINEER documented in this encounter Plan of Treatment Not on filedocumented as of this encounter Visit Diagnoses Diagnosis PD (Parkinson's disease) (HRC) - Primary Paralysis agitans documented in this encounter Care Teams Electronic Systems Security Assessment Relationship Specialty Start Date End Date Lurdes Thomas MD PCP - General 06/18/14 12/11/19 documented as of this encounter
--- OUTSIDE RECORDS SUMMARY | 2022-02-02 11:53 | XMS_ITS | Encounter Summary ---
:1955 Author Organization [employer] Address [address] [place] [address] Care Team Providers Name Role Phone Lurdes Thomas MD Primary Care Provider Reason for Visit Reason Comments Paperwork Encounter Details Date Type Department Care Team Description 09/15/2014 Telephone [facility] Doris Arauz, RN Paperwork [address] corina [place], [place] [address] Social History Tobacco Use Types [...] CDT Doris from Dr. Phan office at [facility] called to request ON/OFF results be sent [...] filedocumented in this encounter Care Teams Senior Site Manager Relationship Specialty Start Date End Date Lurdes Thomas MD PCP - General 06/18/14 12/11/19 documented as of this encounter
--- OUTSIDE RECORDS SUMMARY | 2022-02-02 11:53 | XMS_ITS | Encounter Summary ---
:1955 Author Organization [employer] Address [address], [place] [address] Care Team Providers Name Role Phone Lurdes Thomas MD Primary Care Provider Reason for Visit Reason Comments Follow-up Encounter Details Date Type Department Care Team Description 07/08/2014 Office Visit [facility] Parashos, Sotirios Paralysis agitans [address], MD (Primary Dx) Drive [address] [facility] [address] [place], [place] [phone] (Wo rk) Social History Tobacco Use Types Packs/Day Years Used Date Smoking Tobacco: Never Smokeless Tobacco: Never Alcohol Use Standard Drinks/Week Comments Yes 0 (1 standard drink = 0.6 oz pure alcoho l) Sex Assigned at Date Recorded Not on file documented as of this encounter Last Filed Vital Signs Vital Sign Reading Time Taken Comments Blood Pressure 138/78 07/08/2014 9:00 AM WEBMETHODS CONSULTANT Pulse 84 07/08/2014 9:00 AM WEBMETHODS CONSULTANT Temperature - - Respiratory Rate - - Oxygen Saturation - - Inhaled Oxygen Concentration - - Weight 98.5 kg (217 lb 3.2 oz) 07/08/2014 8:56 AM WEBMETHODS CONSULTANT Height 185.4 cm (6' 0.99) 07/08/2014 8:56 AM WEBMETHODS CONSULTANT Body Mass Index 28.66 07/08/2014 8:56 AM WEBMETHODS CONSULTANT documented in this encounter Patient Instructions Patient Doris Awad RN - 07/08/2014 8:56 AM CST Thank you for enrolling in [employer]. Please follow the instructions below to securely access your online medical record. [employer] allows you to send messages to your doctor, view your test results, renewyour prescriptions, schedule appointments, and more. How Do I Sign Up? 1. In your Internet browser, go to: [email or web address] 2. Click on the Enter Activation Code link under the New User? section. You will see the New Member Sign Up page. 3. Enter your [employer] Activation Code exactly as it appears below. You will not need to use this code after you???ve completed the sign-up process. If you do not sign up before the expiration date, youmust request a new code. [employer] Activation Code: [email or web address] Expires: 08/07/2014 8:56 AM 4. Enter your Date of (mm/dd/yyyy), Home Phone Number and Zip Code as indicated, then click Next. You will be taken to the next sign-up page 5. Create a [employer] ID. This will be your [employer] login ID and cannot be changed, so think of one that is secure and easy to remember. 6. Create a [employer] password. You can change your password at any time. 7. Enter your Security Question and Answer. This can be used at a later time if you forget your password. Click Next. 8. Enter your e-mail address. You will receive e-mail notification when new information is availablein [employer]. 9. Click Sign In. You can now view your medical record. Additional Information If you have questions, you can call [phone] to talk to our [employer] staff. Remember, [employer] is NOT to be used for urgent needs. For medical emergencies, dial 911. ETHODS CONSULTANT documented in this encounter Progress Notes Maria Esther Phan MD - 07/08/2014 9:59 AM CST Dictated ETHODS CONSULTANT documented in this encounter Plan of Treatment Not on filedocumented as of this encounter Visit Diagnoses Diagnosis Paralysis agitans (HRC) - Primary Paralysis agitans documented in this encounter Care Teams Hand Ii Blocker Relationship Specialty Start Date End Date Lurdes Thomas MD PCP - General 06/18/14 12/11/19 documented as of this encounter
--- OUTSIDE RECORDS SUMMARY | 2022-02-02 11:53 | XMS_ITS | Encounter Summary ---
:1955 Author Organization [employer] Address [address], [place] [address] Care Team Providers Name Role Phone Lurdes Thomas MD Primary Care Provider Encounter Details Date Type Department Care Team Description 09/23/2014 Notes/Orders [facility] Jordana Ham, PT [address] [place] [address] [place] [address] [phone] (Wo rk) Social History Tobacco Use Types [...] on filedocumented in this encounter Care Teams Configuration Management Administrator Relationship Specialty Start Date End Date Lurdes Thomas MD PCP - General 06/18/14 12/11/19 documented as of this encounter
--- OUTSIDE RECORDS SUMMARY | 2022-02-02 11:53 | XMS_ITS | Encounter Summary ---
:1955 Author Organization [employer] Address [address] [address] Care Team Providers Name Role Phone Lurdes Thomas MD Primary Care Provider Reason for Visit Reason Comments Post-Op Follow Up Call Encounter Details Date Type Department Care Team Description 09/23/2014 Telephone [facility] Shawnee Hilario RN Post-Op Follow Up Call [address] [place] [address] Social History Tobacco Use Types Packs/Day [...]
--- OUTSIDE RECORDS SUMMARY | 2022-02-02 11:53 | XMS_ITS | Encounter Summary ---
:1955 Author Organization [employer] Address [address] [place] [address] Care Team Providers Name Role Phone Lurdes Thomas MD Primary Care Provider Reason for Visit Reason Comments Follow-up Encounter Details Date Type Department Care Team Description 10/07/2014 Office Visit [facility] Parashos, Sotirios Paralysis agitans [address], MD (Primary Dx) Drive [address] [facility] [address] [place], [place] [phone] (Wo rk) Social History Tobacco Use Types [...] Body Mass Index 27.18 07/08/2014 8:56 AM SPLITTER TENDER documented in this encounter Patient Instructions Patient [...] a day. 2. I will have our rn social services, Fabi Beverly contact you and your as [...] agitans documented in this encounter Care Teams Plan Consultant Relationship Specialty Start Date End Date Lurdes Thomas MD PCP - General 06/18/14 12/11/19 documented as of this encounter
--- OUTSIDE RECORDS SUMMARY | 2022-02-02 11:53 | XMS_ITS | Encounter Summary ---
:1955 Author Organization [facility] Address [address] [address] Care Team Providers Name Role Phone Lurdes Thomas MD Primary Care Provider Encounter Details Date Type Department Care Team Description 10/14/2014 Notes/Orders [facility] Shawnee Hilario, Paralysis agitans [address] RN (Primary D x) [place] [address] Social History Tobacco Use Types [...] documented in this encounter Care Teams Manager Net Relationship Specialty Start Date End Date Lurdes Thomas MD PCP - General 06/18/14 12/11/19 documented as of this encounter
--- OUTSIDE RECORDS SUMMARY | 2022-02-02 11:53 | XMS_ITS | Encounter Summary ---
:1955 Author Organization [employer] Address [address] [place] [address] Care Team Providers Name Role Phone Lurdes Thomas MD Primary Care Provider Reason for Referral Specialty Diagnoses / Procedures Referred By Contact Refer red To Contact Maria Esther Phan MD [address] [place], [place] [address] Referral ID Status Reason Start Date Expiration Date Visits Requ ested Visits Authorized YTICAL RESEARCH CHEMIST Reason for Visit Reason Comments Social Service Encounter Details Date Type Department Care Team Description 06/18/2014 Initial Consult [facility] Fabi Beverly Paralys is [facility] Services LAY OUT WORKER [address] corina Lamas [place], [place] [address] Social History Tobacco Use [...] Deep Brain Stimulation (DBS) Assessment at the [facility]. Assessment: Current Social Situation Pt and his live in their home in [place]. The pt does have any children, but his has two. The pt is close to his step-daughter and her family. 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 He has been open about his diagnosis [...] have time to discuss during this session. Home Weatherizing Worker provided contact information and explained availability to answer any further questions or concerns. Session was 50 minutes long. YTICAL RESEARCH CHEMIST documented in this encounter Plan of Treatment Scheduled Referrals Name Type Priority Associated Diagnoses Order S chedule [facility] Referral Routine Paralysis agitans (HRC) Ordered: 06/20/2014, CONSULT (AMB) Expires: 06/20 documented as of this encounter Visit Diagnoses Diagnosis Paralysis agitans (HRC) Paralysis agitans documented in this encounter Care Teams Bomb Squad Commander Relationship Specialty Start Date End Date Lurdes Thomas MD PCP - General 06/18/14 12/11/19 documented as of this encounter
--- OUTSIDE RECORDS SUMMARY | 2022-02-02 11:53 | XMS_ITS | Encounter Summary ---
:1955 Author Organization [facility] Address [address] [address] Care Team Providers Name Role Phone Lurdes Thomas MD Primary Care Provider Encounter Details Date Type Department Care Team Description 06/18/2014 Notes/Orders [facility] Doris Arauz, Paralysis agitans [address] RN (Primary D x) [place] [address] Social History Tobacco Use Types [...] had . Older the 90 days. Thanks. CTURAL STEEL EQUIPMENT ERECTOR documented in this encounter Plan of Treatment Not on filedocumented as of this encounter Visit Diagnoses Diagnosis Paralysis agitans (HRC) - Primary Paralysis agitans documented in this encounter Care Teams Consulting Application Engineer Relationship Specialty Start Date End Date Lurdes Thomsa MD PCP - General 06/18/14 12/11/19 documented as of this encounter
--- OUTSIDE RECORDS SUMMARY | 2022-02-02 11:53 | XMS_ITS | Encounter Summary ---
:1955 Author Organization [facility] Address [address] [address] Care Team Providers Name Role Phone Lurdes Thomas MD Primary Care Provider Reason for Visit Reason Comments Questions Encounter Details Date Type Department Care Team Description 07/09/2014 Telephone [facility] Sheri Pearson, RN Questions [address] [place], [place] [address] Social History Tobacco Use [...] he will hear from them to schedule. S SERVICE PROFESSIONAL documented in this encounter Plan of Treatment Not on filedocumented as of this encounter Visit Diagnoses Not on filedocumented in this encounter Care Teams Digital Measurement Advisor Relationship Specialty Start Date End Date Lurdes Thomas MD PCP - General 06/18/14 12/11/19 documented as of this encounter
--- OUTSIDE RECORDS SUMMARY | 2022-02-02 11:53 | XMS_ITS | Encounter Summary ---
:1955 Author Organization [facility] Address [address], [place] [address] Care Team Providers Name Role Phone Lurdes Thomas MD Primary Care Provider Encounter Details Date Type Department Care Team Description 07/23/2014 Notes/Orders [facility] Millie Pedraza MD [address] [place], [place] [address] [address] [facility] N [id number] (Wo rk) Social History Tobacco Use Types [...] surgery, as he was getting some benefits. 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
--- OUTSIDE RECORDS SUMMARY | 2022-02-02 11:53 | XMS_ITS | Encounter Summary ---
:1955 Author Organization [facility] Address [address] [place] [address] Care Team Providers Name Role Phone Lurdes Thomas MD Primary Care Provider Reason for Referral Specialty Diagnoses / Procedures Referred By Contact Refer red To Contact Maria Esther Phan MD [address] [place], [place] [address] Referral ID Status Reason Start Date Expiration Date Visits Requ ested Visits Authorized Reason for Visit Reason Comments Device Check Encounter Details Date Type Department Care Team Description 10/14/2014 Nursing Visit [facility] Shawnee Hilario, RN [place] [address] arriaga [place], [place] [address] Social History Tobacco Use [...] DBS implantation. Surgeon:Dr. Gonzalez Rowland Surgery date/location: [facility] 09/09/2014 Battery replacement: None Device type: Activa [...] 2.2V PW 60 Rate 150 Range on numerical tool programmer 2.1-2.7 Right STN 9 negative 10 positive 2.1V PW 60 Rate 150 Range on numerical tool programmer 1.8-2.6 If he wants to try [...] agitans documented in this encounter Care Teams Freezing Room Worker Relationship Specialty Start Date End Date Lurdes Thomas MD PCP - General 06/18/14 12/11/19 documented as of this encounter
--- OUTSIDE RECORDS SUMMARY | 2022-02-02 11:53 | XMS_ITS | Encounter Summary ---
:1955 Author Organization [employer] Address [address], [place] [address] Care Team Providers Name Role Phone Lurdes Thomas MD Primary Care Provider Encounter Details Date Type Department Care Team Description 10/22/2014 Notes/Orders [facility] 39[address] Zhanna Pedraza MD Neurology [address] [facility] [address] [facility] [address] [place] [address] [id number] [phone] Social History Tobacco Use Types Packs/Day Years [...] on filedocumented in this encounter Care Teams Nursing Program Director Relationship Specialty Start Date End Date Lurdes Thomas MD PCP - General 06/18/14 12/11/19 documented as of this encounter
--- OUTSIDE RECORDS SUMMARY | 2022-02-02 11:53 | XMS_ITS | Encounter Summary ---
:1955 Author Organization [facility] Address [address] [place] [address] Care Team Providers Name Role Phone Lurdes Thomas MD Primary Care Provider Encounter Details Date Type Department Care Team Description 09/25/2014 Notes/Orders [facility] Millie Pedraza MD [address] [place], [place] [address] [address] [facility] N [id number] (Wo rk) Social History Tobacco Use Types [...] on filedocumented in this encounter Care Teams Cross Country/Track And Field Coach Relationship Specialty Start Date End Date Lurdes Thomas MD PCP - General 06/18/14 12/11/19 documented as of this encounter
--- OUTSIDE RECORDS SUMMARY | 2022-02-02 11:53 | XMS_ITS | Encounter Summary ---
:1955 Author Organization [employer] Address [address], [place] [address] Care Team Providers Name Role Phone Lurdes Thomas MD Primary Care Provider Encounter Details Date Type Department Care Team Description 06/25/2014 Notes/Orders [facility] Millie Pedraza MD [address] [place], [place] [address] [address] [facility] N [id number] (Wo rk) Social History Tobacco Use Types [...] Phan will meet with him on 07/08/14/ ORK CONTROLLER documented in this encounter Plan of Treatment Not on filedocumented as of this encounter Visit Diagnoses Not on filedocumented in this encounter Care Teams Make Ready Worker Relationship Specialty Start Date End Date Lurdes Thomas MD PCP - General 06/18/14 12/11/19 documented as of this encounter
--- OUTSIDE RECORDS SUMMARY | 2022-02-02 11:53 | XMS_ITS | Encounter Summary ---
:1955 Author Organization [facility] Address [address], [place] [address] Care Team Providers Name Role Phone Lurdes Thomas MD Primary Care Provider Encounter Details Date Type Department Care Team Description 08/20/2014 Notes/Orders [facility] Millie Pedraza MD [address] [place], [place] [address] [address] [facility] N [id number] (Wo rk) Social History Tobacco Use Types [...] on filedocumented in this encounter Care Teams Polytechnic Teacher Relationship Specialty Start Date End Date Lurdes Thomas MD PCP - General 06/18/14 12/11/19 documented as of this encounter
--- OUTSIDE RECORDS SUMMARY | 2022-02-02 11:53 | XMS_ITS | Encounter Summary ---
:1955 Author Organization [facility] Address [address] [place] [address] Care Team Providers Name Role Phone Lurdes Thomas MD Primary Care Provider Reason for Referral Specialty Diagnoses / Procedures Referred By Contact Refer red To Contact Maria Esther Phan MD [address] [place], [place] [address] Referral ID Status Reason Start Date Expiration Date Visits Requ ested Visits Authorized Reason for Visit Reason Comments Adl Problem Encounter Details Date Type Department Care Team Description 11/04/2014 Initial Consult Darrin Moore-d efined conditions(799.89) (Primary Dx); Occupational Therapy Tylor Bates, OTR/L Paralysis agitans [address] [phone] Social History Tobacco Use Types Packs/Day Years Used Date Smoking Tobacco: Never Smokeless Tobacco: Never Alcohol Use Standard Drinks/Week Comments Yes 0 (1 standard drink = 0.6 oz pure alcoho l) Sex Assigned at Date Recorded Not on file documented as of this encounter Progress Notes Tylor Marr, OTR/L - 11/08/2014 1:51 PM CDT Encounter Date: 11/04/2014 Pt. : 1955 [facility] Occupational Therapy - Evaluation/Plan of Care Initial Certification Period: 11/04/2014 to 01/03/15 Referring Provider: Dr. Maria Esther Phan Referring Diagnosis: Parkinson's Disease Visit Diagnosis/IDC Code: Diagnosis (ICD9) ICD-9-CM ICD-10-CM 1. Other ill-defined conditions(799.89) 799.89 R69 2. Paralysis agitans ([facility]) 332.0 G20 Precautions: recent DBS surgery [...] bilateral DBS(09/2014). Previous Occupational Therapy: Received at [facility] [place]. Pain: Location: back pain when getting up rom chairs , gettign up from bed, getting in/out of car. Education: High school. 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 Living Environment: Private home, more than 1 level. Living Location: [facility]. Driving: Yes. Community Mobility: Independent community [...] limits. -Right upper extremity: within normal limits. -Metal Tube Cutter: Left - 127 lbs=99%; Right -128 lbs.=99% [...] did undergo successful DBS surgery. 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 H e presents to address continuing difficulty [...] Achievement or Learning: Distance from clinic. Working real time operator. Prognosis: Excellent for established goals. PLAN Planned [...] exercise program. Procedures: Occupation Therapy Evaluation (CPT 73803): 30 minutes ADL/Self management (CPT 78960): 15 minutes Therapeutic Exercise (CPT 04603): 15 minutes Total Treatment Time: 60 minutes. The show girl is completed by the therapist and the referring clinician's electronic signature certifies medical necessity for the plan above. Tylor Marr OTR/L Lic#[id number] documented in this encounter Plan of Treatment Scheduled Referrals Name Type Priority Associated Diagnoses Order S [facility] Occupational Therapy Referral Routine Paralysis agitans (H RC) Ordered: 11/04/2014, Expires: 2014 documented as of this encounter Visit Diagnoses Diagnosis Other ill-defined conditions(799.89) - P rimary Other ill-defined conditions Paralysis agitans (HRC) Paralysis agitans documented in this encounter Care Teams Medical Numerical Control Operator Relationship Specialty Start Date End Date Lurdes Thomas MD PCP - General 06/18/14 12/11/19 documented as of this encounter
--- OUTSIDE RECORDS SUMMARY | 2022-02-02 11:53 | XMS_ITS | Encounter Summary ---
:1955 Author Organization [facility] Address [address] [place] [address] Care Team Providers Name Role Phone Lurdes Thomas MD Primary Care Provider Reason for Referral Specialty Diagnoses / Procedures Referred By Contact Refer red To Contact Maria Esther Phan MD [address] [place], [place] [address] Referral ID Status Reason Start Date Expiration Date Visits Requ ested Visits Authorized TER Reason for Visit Reason Comments Adl Problem Encounter Details Date Type Department Care Team Description 06/18/2014 Initial Consult Angela Moore (Primary Dx); Occupational Therapy Tylor Bates OTR/L Other ill-defined conditions(799.89) [address] [employer] [address] [place] [phone] [phone] Social History Tobacco Use Types Packs/Day Years Used Date Smoking Tobacco: Never Smokeless Tobacco: Never Alcohol Use Standard Drinks/Week Comments Yes 0 (1 standard drink = 0.6 oz pure alcoho l) Sex Assigned at Date Recorded Not on file documented as of this encounter Progress Notes Tylor Marr OTR/Stefan - 06/18/2014 4:45 PM CST Encounter Date: 06/18/2014 Pt. : 1955 [facility] Occupational Therapy - Evaluation/Plan of Care [...] program. Completion of Pre DBS assessment and studio receptionist of recommendations. Past Medical History: Past medical history, medication, and allergies were reviewed in the electronic medical record. Pertinent to therapy: Restless leg syndrome. . Previous Occupational Therapy: Unknown. Pain: Location: Back pain in morning. Education: High school. 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 Living Location: [facility]. Driving: Yes. Community Mobility: Assistive [...] limits. -Right upper extremity: within normal limits. -Carbon Sequestration Plant Engineer: Left - 99 lbs =75%; Right [...] equipment for increased handwriting legibility using: Wide boiler testing technician pen. Aim big. Write slower. Response to [...] time analyst. Prognosis: Excellent for established goals. PLAN: Evaluation [...] exercise program. Procedures: Occupation Therapy Evaluation (CPT 89047): 30 minutes ADL/Self management (CPT 01612): 30 minutes Total Treatment Time: 60 minutes. The talent development consultant is completed by the therapist and the referring clinician's electronic signature certifies medical necessity for the plan above. Tylor Marr OTR/L Lic#[id number] documented in this encounter Plan of Treatment Scheduled Referrals Name Type Priority Associated Diagnoses Order S [facility] Occupational Therapy Referral Routine Paralysis agitans (H RC) Ordered: 06/20/2014, Expires: 2014 documented as of this encounter Visit Diagnoses Diagnosis Paralysis agitans (HRC) - Primary Paralysis agitans Other ill-defined conditions(799.89) Other ill-defined conditions documented in this encounter Care Teams Grain Mill Worker Relationship Specialty Start Date End Date Lurdes Thomas MD PCP - General 06/18/14 12/11/19 documented as of this encounter
--- OUTSIDE RECORDS SUMMARY | 2022-02-02 11:53 | XMS_ITS | Encounter Summary ---
:1955 Author Organization [facility] Address [address] [place] [address] Care Team Providers Name Role Phone Lurdes Thomas MD Primary Care Provider Reason for Referral Specialty Diagnoses / Procedures Referred By Contact Refer red To Contact Maria Esther Phan MD [address] [place], [place] [address] Referral ID Status Reason Start Date Expiration Date Visits Requ ested Visits Authorized Reason for Visit Reason Comments Device Check Encounter Details Date Type Department Care Team Description 10/07/2014 Nursing Visit [facility] Shawnee Hilario, RN [place] [address] [place], [place] [address] Social History Tobacco Use [...] Dr. Gonzalez Rowland Surgery date/location: September 09 [facility] Device type: Activa PC Indication:Parkinsons Update [...] 150 therapy impedence 1159 current 1.816 Patient Stock Shaper Range: Left 2.1-2.7 Right 1.7-2.5. Total face [...] questions or concerns Supervising provider:Dr. Maria Esther iHlario RN documented in this encounter Plan of Treatment Scheduled Referrals Name Type Priority Associated Diagnoses Order S chedule DBS PROGRAMMING CONSULT Referral Routine Paralysis agitans (HRC) Ordered: 10/07/2014, (AMB) Expires: 2014 documented as of this encounter Visit Diagnoses Diagnosis Paralysis agitans (HRC) Paralysis agitans documented in this encounter Care Teams Motor Vehicle Assembly Supervisor Relationship Specialty Start Date End Date Lurdes Thomas MD PCP - General 06/18/14 12/11/19 documented as of this encounter
--- OUTSIDE RECORDS SUMMARY | 2022-02-02 11:53 | XMS_ITS | Encounter Summary ---
:1955 Author Organization [employer] Address [address] [address] Care Team Providers Name Role Phone Lurdes Thomas MD Primary Care Provider Reason for Visit Reason Comments Social Service Encounter Details Date Type Department Care Team Description 10/09/2014 Telephone [facility] Fabi Quinones LISW Social Service [address] [place], [place] [address] Social History Tobacco Use [...] with PD and a well-known clinic in [place]. Natasha stated she had time today to call and inquire about insurance and get an appointment set. She was appreciative of the resources and support from Dr Phan. documented in this encounter Plan of Treatment Not on filedocumented as of this encounter Visit Diagnoses Not on filedocumented in this encounter Care Teams Museum Or Zoo Director Relationship Specialty Start Date End Date Lurdes Thomas MD PCP - General 06/18/14 12/11/19 documented as of this encounter
--- OUTSIDE RECORDS SUMMARY | 2022-02-02 11:53 | XMS_ITS | Encounter Summary ---
:1955 Author Organization [employer] Address [address] [place] [address] Care Team Providers Name Role Phone Lurdes Thomas MD Primary Care Provider Reason for Referral Specialty Diagnoses / Procedures Referred By Contact Refer red To Contact Maria Esther Phan MD [address] [place], [place] [address] Referral ID Status Reason Start Date Expiration Date Visits Requ ested Visits Authorized Reason for Visit Reason Comments Balance/gait Dysfunction Encounter Details Date Type Department Care Team Description 11/04/2014 Initial Consult [facility] Katalina Laughlin normality of gait (Primary Dx); Therapy L, PT Paralysis agitans; [address] [facility] [place] [address] [phone] Social History Tobacco Use Types Packs/Day Years [...] 1955 Physical Therapy Parkinson Evaluation/Plan of Care [facility] Initial Certification Period: 11/04/2014 to 02/02/15 Referring Provider: Dr. Maria Esther Phan Visit Diagnosis/ICD: Diagnosis (ICD9) ICD-9-CM ICD-10-CM 1. Abnormality of gait 781.2 R26.9 2. Paralysis agitans (HCC) 332.0 G20 3. Personal history of fall V15.88 Z91.81 Precautions: Fall precautions, DBS Onset/Referral Date: 10/14/14 Reason for Referral: Outpatient PT. Orders: Evaluate and treat. [facility] [place] Services: Occupational therapy. Speech therapy. Exacerbation Date: [...] to residence: Stairs to enter. -[facility] -Living environment: Urban-mostly paved areas [...] Rapid speech, occasional stuttering. 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 Did recently travel to [place] on business, however. OBJECTIVE Blood Pressure: Symptoms: [...] Goal Achievement: Distance from center (lives in [place]) Rehab Prognosis: Good PLAN Planned Treatment: ADL/Home [...] 90 day(s). Total Treatment: 60 minutes The sales representative business courses is completed by the therapist and the referring clinician's electronic signature certifies medical necessity for the plan above. Katalina Laughlin PT Physical Therapist [place] License # [id number] documented in this encounter Plan of Treatment Scheduled Referrals Name Type Priority Associated Diagnoses Order S [facility] Physical Therapy Referral Routine Paralysis agitans (HRC) Ordered: 11/04/2014, Expires: 2014 documented as of this encounter Visit Diagnoses Diagnosis Abnormality of gait - Primary Paralysis agitans (HRC) Paralysis agitans Personal history of fall documented in this encounter Care Teams Surveyor Helper Rod Relationship Specialty Start Date End Date Lurdes Thomas MD PCP - General 06/18/14 12/11/19 documented as of this encounter
--- OUTSIDE RECORDS SUMMARY | 2022-02-02 11:54 | XMS_ITS | Encounter Summary ---
:1955 Author Organization [facility] Address [address] [place] [address] Care Team Providers Name Role Phone Unavailable Primary Care Provider Unavailable Encounter Details Date Type Department Care Team Description 07/30/2007 PN Conversion Only CHRISTIAN CONVERSION Social History Tobacco Use Types Packs/Day Years Used Date Smoking Tobacco: Never Assessed Sex Assigned at Date Recorded Not on file documented as of this encounter Plan of Treatment Not on filedocumented as of this encounter Visit Diagnoses Not on filedocumented in this encounter
--- OUTSIDE RECORDS SUMMARY | 2022-02-02 11:54 | XMS_ITS | Encounter Summary ---
:1955 Author Organization [facility] Address [address] [place] [address] Care Team Providers Name Role Phone Unavailable Primary Care Provider Unavailable Encounter Details Date Type Department Care Team Description 05/05/2009 Nursing Visit [facility] [place] [address] [place] [address] Social History Tobacco Use Types Packs/Day Years Used Date Smoking Tobacco: Never Assessed Sex Assigned at Date Recorded Not on file documented as of this encounter Plan of Treatment Not on filedocumented as of this encounter Visit Diagnoses Not on filedocumented in this encounter
--- OUTSIDE RECORDS SUMMARY | 2022-02-02 11:54 | XMS_ITS | Encounter Summary ---
:1955 Author Organization [facility] Address [address] [place] [address] Care Team Providers Name Role Phone Unavailable Primary Care Provider Unavailable Encounter Details Date Type Department Care Team Description 05/11/2006 PN Conversion Only AIRPORT CONVERSION [address] [place] [address] Social History Tobacco Use Types Packs/Day Years Used Date Smoking Tobacco: Never Assessed Sex Assigned at Date Recorded Not on file documented as of this encounter Plan of Treatment Not on filedocumented as of this encounter Visit Diagnoses Not on filedocumented in this encounter
--- OUTSIDE RECORDS SUMMARY | 2022-02-02 11:54 | XMS_ITS | Encounter Summary ---
:1955 Author [facility] Address [address] [address] Care Team Providers Name Role Phone Unavailable Primary Care Provider Unavailable Encounter Details Date Type Department Care Team Description 11/19/2012 Notes/Orders [place] [facility] Katalina Laughlin, PT [address] arri[place] [address] [place] [address] [place], [place] [phone] (Wo rk) Social History Tobacco Use Types Packs/Day Years Used Date Smoking Tobacco: Never Assessed Sex Assigned at Date Recorded Not on file documented as of this encounter Progress Notes Katalina Laughlin, PT - 11/19/2012 9:58 AM CDT No show for scheduled PT consult appointment this morning. Katalina Laughlin PT, [facility] License # [id number] documented in this encounter Plan of Treatment Not on filedocumented as of this encounter Visit Diagnoses Not on filedocumented in this encounter
--- OUTSIDE RECORDS SUMMARY | 2022-02-02 11:54 | XMS_ITS | Encounter Summary ---
:1955 Author Organization [facility] Address [address] [place] [address] Care Team Providers Name Role Phone Unavailable Primary Care Provider Unavailable Encounter Details Date Type Department Care Team Description 08/23/2007 Therapy CONV METH SP Jasbir Laughlin SEED CLEANING MANAGER [address] [facility] Liliam Joshi N [phone] (Wo rk) Social History Tobacco Use Types [...] 0322 Note Time: 08/23/07 0001 Status: Signed Underliner: Bárbara Laughlin CCC-SEED CLEANING MANAGER (Speech and Language Pathologist) [facility] [place] Speech Pathology - Parkinson's Disease Evaluation Primary [...] school. 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 Marital Status: . Living Arrangement: Lives with spouse. Safety in living environment: Patient feels safe in current living environment. Vulnerable adult assessment = low risk OBJECTIVE Behavioral Characteristics: Alert. Motivated. Cooperative. Tests Administered: [facility] Assessment of Communication in Parkinson's Disease - [...] One time evaluation and treatment only at [facility] [place]. Neurosurgery Research Director goals: -Maximize speech and voice for [...] 60 minutes. Electronically signed by: Bárbara Laughlin MA/LAVELL-SEED CLEANING MANAGER, 5063, 08/23/2007 *SH~REHAB~SPARKEVAL~ Shorthand Note Completed on: 08/23/2007 1:19 PM documented in this encounter Plan of Treatment Not on filedocumented as of this encounter Visit Diagnoses Not on filedocumented in this encounter
--- OUTSIDE RECORDS SUMMARY | 2022-02-02 11:54 | XMS_ITS | Encounter Summary ---
:1955 Author Organization [facility] Address [address] [place] [address] Care Team Providers Name Role Phone Lurdes Thomas MD Primary Care Provider Reason for Referral Specialty Diagnoses / Procedures Referred By Contact Refer red To Contact Maria Esther Phan MD [address] [place], [place] [address] Referral ID Status Reason Start Date Expiration Date Visits Requ ested Visits Authorized NESS MANAGEMENT MANAGER Reason for Visit Reason Comments VOICE, LOSS OF Encounter Details Date Type Department Care Team Description 06/18/2014 Initial Consult [place] Paige Quesada inson's disease (Primary Dx); Therapy M, NURSE ADVISOR Dysphonia; [address] [employer] [place] [address] [id number] Social History Tobacco Use Types Packs/Day Years Used Date Smoking Tobacco: Never Smokeless Tobacco: Never Alcohol Use Standard Drinks/Week Comments Yes 0 (1 standard drink = 0.6 oz pure alcoho l) Sex Assigned at Date Recorded Not on file documented as of this encounter Progress Notes Paige Garcia, NURSE ADVISOR - 06/18/2014 5:17 PM CST Encounter Date: 06/18/2014 Patient : 1955 Speech Therapy - Parkinson's Disease Evaluation and Plan of Care [facility] Multidisciplinary Assessment Clinic Outpatient Evaluation Initial [...] Any liquids. Previous Speech Therapy: Received at [facility] [place]. Evaluation only 08/23/2007. Hand Dominance: Right Hearing Acuity: Within Functional Limits. Glasses: No. Education: High school. 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 Marital Status: . Living Environment: Lives [...] Recommendations: Brief course of individual speech therapy. Auto Painter Speech Goal: Client will be able to be understood without repetition 80% of the time in their daily environment as measured by patient report. Auto Painter Swallowing Goal: -None Auto Painter Memory/Cognition Goal: None. Short Term Goals: -Independent in speech/voice home program. -Client will improve respiratory support for speech and voice to provide a basis for intelligible speech. -Client will increase articulation accuracy for improved speech intelligibility. -Client will decrease speech rate for improved intelligibility. Goals Achieved Today at [facility] [place]: -Client and/or family verbalized comprehension of today's [...] family in agreement with care plan. The client strategist is completed by the therapist, and the referring clinician's electronic signature certifies medical necessity for the plan above. documented in this encounter Plan of Treatment Scheduled Referrals Name Type Priority Associated Diagnoses Order [facility] Speech Therapy Referral Routine Paralysis agitans (HRC) Or dered: 06/20/2014, Expires: 2014 documented as of this encounter Visit Diagnoses Diagnosis Parkinson's disease (HRC) - Primary Dysphonia Paralysis agitans (HRC) Paralysis agitans documented in this encounter Care Teams Research Pharmacist Relationship Specialty Start Date End Date Lurdes Thomas MD PCP - General 06/18/14 12/11/19 documented as of this encounter
--- OUTSIDE RECORDS SUMMARY | 2022-02-02 11:54 | XMS_ITS | Encounter Summary ---
:1955 Author Organization [facility] Address [address], [place] [address] Care Team Providers Name Role Phone No Primary/Referring, Phy Primary Care Provider Unavailable Reason for Visit Reason Comments Questions Encounter Details Date Type Department Care Team Description 05/05/2014 Telephone [facility] Fabi Ray, RN Questions [address] corina Lamas [place], [place] [address] Social History Tobacco Use [...] Phan. He sees Dr. Phan now in [place] due to copay. Explained that best if results appointment can be [facility] can meet with the DBS nurse after. Also explained will need to see the DBS nurse at [facility] post DBS if approved for surgery. Good comprehension of plan. Transferred to front line to set up results appointment with Dr. Phan and to review pre-DBS appointments. Post-note: Confirmed with front line that 05/26/13 appt is for MRI and neuropsych with Dr. Ramirez. UCTION GRIP documented in this encounter Plan of Treatment Not on filedocumented as of this encounter Visit Diagnoses Not on filedocumented in this encounter Care Teams Ultrasonic Cleaner Relationship Specialty Start Date End Date No Primary/Referring, Phy PCP - General 01/22/14 documented as of this encounter
--- OUTSIDE RECORDS SUMMARY | 2022-02-02 11:54 | XMS_ITS | Encounter Summary ---
:1955 Author Organization [facility] Address [address] [place] [address] Care Team Providers Name Role Phone Unavailable Primary Care Provider Unavailable Encounter Details Date Type Department Care Team Description 05/06/2008 Hospital Encounter CONV METH PKDNela Arellano, RN [address] [place], [place] [address] Social History Tobacco Use Types Packs/Day Years [...]
--- OUTSIDE RECORDS SUMMARY | 2022-02-02 11:54 | XMS_ITS | Encounter Summary ---
:1955 Author Organization [facility] Address [address] [address] Care Team Providers Name Role Phone No Primary/Referring, Phmyah Primary Care Provider Unavailable Encounter Details Date Type Department Care Team Description 01/30/2014 Orders Only [facility] Kiara Cristina, Vitamin D deficiency [address] Tim Ross MD (Primary Dx) [place] [id number] [address] [phone] [place] [address] (Wo rk) Social History Tobacco Use [...] deficiency documented in this encounter Care Teams Unisaw Operator Relationship Specialty Start Date End Date No Primary/Referring, Lilliana PCP - General 01/22/14 documented as of this encounter
--- OUTSIDE RECORDS SUMMARY | 2022-02-02 11:54 | XMS_ITS | Encounter Summary ---
:1955 Author Organization [facility] Address [address] [place] [address] Care Team Providers Name Role Phone Unavailable Primary Care Provider Unavailable Encounter Details Date Type Department Care Team Description 07/22/2008 PN Conversion Only AIR[facility] CONVERSION [address] [place] [address] Social History Tobacco Use Types Packs/Day Years Used Date Smoking Tobacco: Never Assessed Sex Assigned at Date Recorded Not on file documented as of this encounter Plan of Treatment Not on filedocumented as of this encounter Visit Diagnoses Not on filedocumented in this encounter
--- OUTSIDE RECORDS SUMMARY | 2022-02-02 11:54 | XMS_ITS | Encounter Summary ---
:1955 Author Organization [facility] Address [address] [address] Care Team Providers Name Role Phone Unavailable Primary Care Provider Unavailable Encounter Details Date Type Department Care Team Description 08/17/2009 Office Visit [facility] Alexey Alvarez MD [address] [place] [address] [place] [address] [phone] (Wo rk) Social History Tobacco Use Types [...] signed by Alexey Garcia MD at 08/17/09 1121 Author: Alexey Garcia MD Service: (none) Author Type: Physician Filed: 09/11/102113 Note Time: 08/17/09 0001 Status: Signed R D Internship: Alexey Garcia MD (Physician) SUBJECTIVE: 54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 He has no side effects. He formerly was with [facility] and his insurance is changed. He has Parkinson's and sees Dr. Phan for its management in [place]. The remainder of the complete ROS is [...]
--- OUTSIDE RECORDS SUMMARY | 2022-02-02 11:54 | XMS_ITS | Encounter Summary ---
:1955 Author Organization [facility] Address [address], [place] [address] Care Team Providers Name Role Phone No Primary/Referring, Phy Primary Care Provider Unavailable Reason for Visit Reason Comments Patient Calling Back Encounter Details Date Type Department Care Team Description 04/15/2014 Telephone [facility] Shawnee Hilario, RN Patient Calling Back [address] corina Lamas [place], [place] [address] Social History Tobacco Use [...] TAC. States he spoke with Doris at [facility] and has an appointment set up 05/26/14. Do not see this appointment in our system at [facility]. Transferred him to [facility]. Shawnee Hilario RN - 04/15/2014 4:22 PM CST Patient left a message on the DBS nurse line stating he was returning a call about scheduling DBS. We had called him a month or so ago to tell him about our process and our understanding was he wanted to wait until After May because of insurance reasons. It may have been the front end manager calling himto schedule. Left him a message asking him to speak to Gricelda. AID documented in this encounter Plan of Treatment Not on filedocumented as of this encounter Visit Diagnoses Not on filedocumented in this encounter Care Teams In Flight Refueling Craftsman Relationship Specialty Start Date End Date No Primary/Referring, Phy PCP - General 01/22/14 documented as of this encounter
--- OUTSIDE RECORDS SUMMARY | 2022-02-02 11:54 | XMS_ITS | Encounter Summary ---
:1955 Author Organization [facility] Address [address] [place] [address] Care Team Providers Name Role Phone Unavailable Primary Care Provider Unavailable Encounter Details Date Type Department Care Team Description 07/22/2008 [facility] Visit [facility] Occupational Logan Croft, Medicine [address] [place] [address] [place] [address] Social History Tobacco Use Types Packs/Day Years Used Date Smoking Tobacco: Never Assessed Sex Assigned at Date Recorded Not on file documented as of this encounter Plan of Treatment Not on filedocumented as of this encounter Visit Diagnoses Not on filedocumented in this encounter
--- OUTSIDE RECORDS SUMMARY | 2022-02-02 11:54 | XMS_ITS | Encounter Summary ---
:1955 Author Organization [facility] Address [address], [place] [address] Care Team Providers Name Role Phone Unavailable Primary Care Provider Unavailable Encounter Details Date Type Department Care Team Description 09/22/2010 PN Conversion Only Alexey Tolentino, [facility] [place] [address] [address] [facility] [address] (Wo rk) Social History Tobacco Use Types Packs/Day Years Used Date Smoking Tobacco: Never Assessed Sex Assigned at Date Recorded Not on file documented as of this encounter Plan of Treatment Not on filedocumented as of this encounter Visit Diagnoses Not on filedocumented in this encounter
--- OUTSIDE RECORDS SUMMARY | 2022-02-02 11:54 | XMS_ITS | Encounter Summary ---
:1955 Author Organization [facility] Address [address] [address] Care Team Providers Name Role Phone No Primary/Referring, Phy Primary Care Provider Unavailable Reason for Visit Reason Comments Questions Encounter Details Date Type Department Care Team Description 06/06/2014 Telephone [facility] Doris Arauz, RN Questions [address] corina Lamas [place], [place] [address] Social History Tobacco Use [...] Andrew called asking for number of [employer] Recording Studio Setup Worker. Emailed our reps and Lyric stated it was okay to give him her number: [phone] Called Andrew and gave him her number. ORY PROFESSOR documented in this encounter Plan of Treatment Not on filedocumented as of this encounter Visit Diagnoses Not on filedocumented in this encounter Care Teams Animal Attendants And Trainers Relationship Specialty Start Date End Date No Primary/Referring, Lupilloy PCP - General 01/22/14 documented as of this encounter
--- OUTSIDE RECORDS SUMMARY | 2022-02-02 11:54 | XMS_ITS | Encounter Summary ---
:1955 Author [facility] Address [address], [place] [address] Care Team Providers Name Role Phone Unavailable Primary Care Provider Unavailable Encounter Details Date Type Department Care Team Description 07/31/2007 Hospital Encounter CONV METH PKDSV Nela Soriano, RN [address] Gagn[address], [place] [address] Social History Tobacco Use Types Packs/Day Years [...] Therapist, Occupational Therapist, Speech and Language Pathologist, Taper Machine, Registered Nurse). Orders: Evaluate and treat. Exacerbation Date: 08/21/2007 Initial Certification Dates: 08/23/2007 to 09/21/07 SUBJECTIVE: Mobility Limitations Reported: Denies limitations. Balance/Falls in past 6 months: None reported. Motor Fluctuations: No. Pain Screen: No pain. Past Medical History: Unremarkable per patient report. Support System: Lives with primary family day care provider. Living Situation: Private home, more than 1 level. [facility] Living Environment: Urban-mostly paved areas to ambulate. Community Mobilities: Driving-unrestricted. Frequency of Outings: Leaves home on a daily basis. Leisure Activities: Plays guitar. Formal Exercises: Walking-treadmill or indoors. Weight lifting. Yoga. Exercise Frequency: Several times per week. Communication: Clear. 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 Travels several times a year. Patient's [...] -Exercise handouts. Procedures: Physical Therapy Evaluation (CPT 01578) Therapeutic Exercise (CPT 11901) 30 minutes TOTAL TREATMENT TIME: 60 minutes. Electronically signed by: Sandrine Martinez, PT, 5764, 08/23/2007 *SH~REHAB~PTPARKEVA~ Shorthand Note completed on: 08/23/2007 3:15 PM documented in this encounter Plan of Treatment Not on filedocumented as of this encounter Visit Diagnoses Not on filedocumented in this encounter
--- OUTSIDE RECORDS SUMMARY | 2022-02-02 11:54 | XMS_ITS | Encounter Summary ---
:1955 Author Organization [facility] Address [address] [place] [address] Care Team Providers Name Role Phone Unavailable Primary Care Provider Unavailable Encounter Details Date Type Department Care Team Description 05/04/2009 PN Conversion Only BOARDER STEAM [address] [place] [address] Social History Tobacco Use Types Packs/Day Years Used Date Smoking Tobacco: Never Assessed Sex Assigned at Date Recorded Not on file documented as of this encounter Plan of Treatment Not on filedocumented as of this encounter Visit Diagnoses Not on filedocumented in this encounter
--- OUTSIDE RECORDS SUMMARY | 2022-02-02 11:54 | XMS_ITS | Encounter Summary ---
:1955 Author Organization [employer] Address [address] [place] [address] Care Team Providers Name Role Phone No Primary/Referring, Phy Primary Care Provider Unavailable Reason for Visit Reason Comments Establish Care MEDICATION CHECK Encounter Details Date Type Department Care Team Description 01/28/2014 Office Visit Kiara Zepeda Hyperlipide cierra (Primary Dx); Rober Aviles MD Parkinson's disease; [address] [facility] [address] [place] [address] Screening for diabetes mellitus; [place] [address] [place] [address] Screening for prostate cancer; [phone] Special screeni ng for malignant neoplasms, colon; [...] go directly to the clinic???s lab to hop picker your test kit. There will be [...] COLLECTION KIT PREP (01/28/2014 9:30 AM CDT) [facility] gist Method Time Signature FIT Kit Prep Collection Kit [facility] Given to LABORATORIES Patient Specimen Anatomical Collection Method Collection Time Receive d Time (Source) Location / / Volume Laterality 01/28/2014 9:30 AM 4 9:31 CDT AM CDT Narrative [facility] - 02/04/2014 8:08 AM C DT Performed at [facility], [facility], [place] [address] Kiara Cristina MD LAB_1 Performing Organization Address City/State/ZIP Code Phon e Number [facility] [phone] PROSTATIC SPECIFIC ANTIGEN(SCREEN) (V76.44) (01/28/2014 9:30 AM CDT) P athologist Signature Prostatic Spec 0.97 0.00 - [facility] Ag 4.00 ng/ml LABORATORIES Specimen Anatomical Collection Method Collection Time Receive d Time (Source) Location / / Volume Laterality 01/28/2014 9:30 AM 4 9:31 CDT AM CDT Narrative [facility]ATORIES - 01/28/2014 7:22 PM C DT Performed at [facility], [address] [place] [phone] Kiara Cristina MD LAB_1 Performing Organization Address City/[facility]/ZIP Code Phon e Number [facility] [phone] (ABNORMAL) VITAMIN D 25-HYDROXY, TOTAL (V77.99) (01/28/2014 9:30 AM CDT) [facility] gist Method Time Signature Vitamin 14.8 [...] 01/28/2014 9:27 PM C DT Performed at [facility] , [address] [place] [address] Kiara Cristina MD LAB_1 Performing Organization Address City/State/ZIP Code Phon e Number [facility] [phone] LIVER PANEL(HEPATIC FUNCTION PANEL) (01/28/2014 9:30 AM CDT) [facility] Method Time Signature Alkaline 89 38 [...] C DT Performed at [facility], [address] [place] [address] Kiara Cristina MD LAB_1 Performing Organization Address City/[facility] Phon e Number [facility] [phone] HGB A1C (01/28/2014 9:30 AM CDT) athologist Signature Hgb A1c 5.9 4.3 - 6.1 % [facility] Specimen Anatomical Collection Method Collection Time Receive d Time (Source) Location / / Volume Laterality 01/28/2014 9:30 AM 4 9:31 CDT AM CDT Narrative [facility] - 01/29/2014 9:55 AM C DT Performed at [facility], [address] [place] [address] ??[address] Kiara Cristina MD LAB_1 Performing Organization Address City/[facility] Phon e Number [facility] [phone] (ABNORMAL) LIPID PANEL AND DIRECT LDL(IF NEEDED) (01/28/2014 9:30 AM CDT) Component Value Ref Test Analysis Performed At [facility] Range Method Time Signature Hours Fasting [...] C DT Performed at [facility], [address] [place] [address] ??[phone] Kiara Cristina MD LAB_1 Performing Organization Address City/State/ZIP Code Phon e Number [facility] [phone] documented in this encounter Visit Diagnoses Diagnosis Hyperlipidemia (HRC) - Primary Other and unspecified hyperlipidemia Parkinson's disease (HRC) Screening for diabetes mellitus Screening for prostate cancer Special screening for malignant neoplasm of prostate Special screening for malignant neoplasm s, colon Preventative health care Routine general medical examination at a health care facility documented in this encounter Care Teams Manager Mac Relationship Specialty Start Date End Date No Primary/Referring, Phy PCP - General 01/22/14 documented as of this encounter
--- OUTSIDE RECORDS SUMMARY | 2022-02-02 11:54 | XMS_ITS | Encounter Summary ---
:1955 [address] [facility] Address [address] [place] [address] Care Team Providers Name Role Phone Unavailable Primary Care Provider Unavailable Encounter Details Date Type Department Care Team Description 12/04/2007 Hospital Encounter CONV METH PKDKpV Nela Soriano, RN [address], [place] [address] Social History Tobacco Use Types Packs/Day Years [...]
--- OUTSIDE RECORDS SUMMARY | 2022-02-02 11:54 | XMS_ITS | Encounter Summary ---
:1955 Author Organization [facility] Address [address] [place] [address] Care Team Providers Name Role Phone Lurdes Thomas MD Primary Care Provider Reason for Referral Specialty Diagnoses / Procedures Referred By Contact Refer red To Contact Maria Esther Phan MD [address] [place], [place] [address] Referral ID Status Reason Start Date Expiration Date Visits Requ ested Visits Authorized CENTER RECRUITER Reason for Visit Reason Comments CONSULT Encounter Details Date Type Department Care Team Description 06/18/2014 Nursing Visit [facility] Doris Arauz, PD (Parkinson's disease) (Pr imary Dx); [address] [place], [place] [address] Social History Tobacco Use Types Packs/Day Years Used Date Smoking Tobacco: Never Smokeless Tobacco: Never Alcohol Use Standard Drinks/Week Comments Yes 0 (1 standard drink = 0.6 oz pure alcoho l) Sex Assigned at Date Recorded Not on file documented as of this encounter Progress Notes Doris Arauz RN - 06/18/2014 5:16 PM CST Andrew came to [place] for DBS TAC with his . States [...] CR: 900mg MoCA: Midi: 0 Vargas: 15 CENTER RECRUITER documented in this encounter Plan of Treatment Scheduled Referrals Name Type Priority Associated Diagnoses Order S angélica [facility] Referral Routine Paralysis agitans (HRC) Ordered: 06/20/2014, CONSULT (AMB) Expires: 06/20 documented as of this encounter Visit Diagnoses Diagnosis PD (Parkinson's disease) (HRC) - Primary Paralysis agitans Paralysis agitans (HRC) Paralysis agitans documented in this encounter Care Teams Production Control Expert Relationship Specialty Start Date End Date Lurdes Thomas MD PCP - General 06/18/14 12/11/19 documented as of this encounter
--- OUTSIDE RECORDS SUMMARY | 2022-02-02 11:54 | XMS_ITS | Encounter Summary ---
:1955 Author Organization [facility] Address [address] [place] [address] Care Team Providers Name Role Phone Unavailable Primary Care Provider Unavailable Encounter Details Date Type Department Care Team Description 08/17/2009 PN Conversion Only MARCO CONVERSION Alexey Garcia, [address] [place] [address] [address] [place], [place] [address] (Wo rk) Social History [...] Greater than 150 ng/m L Performed at [facility] [address] [place] [address] [id number] Specimen (Source) Anatomical Collection Method Collection Time Re ceived Time Location / / Volume Laterality 08/17/2009 8:30 AM CDT Alexey Garcia MD LAB_1 Performing Organization Address City/[facility] Code Phon e Number HP CONVERSION Prostatic Specific Antigen (F/U) (08/17/2009 8:30 AM CDT) P athologist Signature Prostate 0.6 0.0 - 4.0 HP CONVERSION Specific ng/mL Antigen Specimen (Source) Anatomical Collection Method Collection Time Re ceived Time Location / / Volume Laterality 08/17/2009 8:30 AM CDT Alexey Garcia MD LAB_1 Performing Organization Address City/[facility]/ZIP Code Phon e Number HP CONVERSION Lipid [...] Alexey Garcia MD LAB_1 Performing Organization Address City/[facility] Code Phon e Number HP CONVERSION (ABNORMAL) GLUCOSE (08/17/2009 8:30 AM CDT) P athologist Signature Lab Glucose 105 (H) 60 - 100 HP CONVERSION mg/dL Specimen (Source) Anatomical Collection Method Collection Time Re ceived Time Location / / Volume Laterality 08/17/2009 8:30 AM CDT Alexey Garcia MD LAB_1 Performing Organization Address [facility] Phon e Number HP CONVERSION ALT (SGPT) (08/17/2009 8:30 AM CDT) [facility] Method Time Signature Alanine 33 4 - 55 HP CONVERSION Aminotransferase U/L Specimen (Source) Anatomical Collection Method Collection Time Re ceived Time Location / / Volume Laterality 08/17/2009 8:30 AM CDT Alexey Garcia MD LAB_1 Performing Organization Address [facility] Phon e Number HP CONVERSION documented in this encounter Visit Diagnoses Not on filedocumented in this encounter
--- OUTSIDE RECORDS SUMMARY | 2022-02-02 11:54 | XMS_ITS | Encounter Summary ---
:1955 [facility] Address [address] [place] [address] Care Team Providers Name Role Phone Unavailable Primary Care Provider Unavailable Encounter Details Date Type Department Care Team Description 05/11/2006 Office Visit [place] Charanjit Webster M D [facility] [address] [place] [address] Social History Tobacco Use Types Packs/Day Years Used Date Smoking Tobacco: Never Assessed Sex Assigned at Date Recorded Not on file documented as of this encounter Plan of Treatment Not on filedocumented as of this encounter Visit Diagnoses Not on filedocumented in this encounter
--- OUTSIDE RECORDS SUMMARY | 2022-02-02 11:54 | XMS_ITS | Encounter Summary ---
:1955 Author Organization [facility] Address [address] [place] [address] Care Team Providers Name Role Phone No Primary/Referring, Phy Primary Care Provider Unavailable Reason for Visit Reason Comments Appt. Scheduled Encounter Details Date Type Department Care Team Description 05/20/2014 Telephone [facility] Sheri Pearson RN Appt. Scheduled [address] [place], [place] [address] Social History Tobacco Use [...] scheduled for on Monday. It is at [facility] at the [place] location. [employer] [employer] documented in this encounter Plan of Treatment Not on filedocumented as of this encounter Visit Diagnoses Not on filedocumented in this encounter Care Teams Spacer Type Bar And Segment Relationship Specialty Start Date End Date No Primary/Referring, Lupilloy PCP - General 01/22/14 documented as of this encounter
--- NOTE | 2022-02-02 12:03 | P.GSCN_ITS ---
History of Present Illness Consult details Date Seen: 02/02/22 Consult date: 02/02/22 Narrative: The patient is a 66-year-old male with Parkinson's disease and chronic constipation who underwent ileostomy and mucous fistula takedown on 01/10/2022 after approximately 8 months ago undergoing laparotomy and ileostomy for cecal perforation from sigmoid colon obstruction from chronic constipation. Postoperatively he did okay. He had slightly slow to return bowel function and significant hyponatremia, however he was able to be discharged within the 1st week postoperatively. After discharge, however he did have several issues. He was in the emergency department with constipation and a small amount of blood per rectum. This resolved with enemas. He has since been on MiraLax and Mylanta and having bowel movements daily. He has had multiple bowel movements in fact. He was last seen in clinic on 01/28/2022. He was noted to have some dysphagia as well as nausea. He was seen by Dr. Mays who ordered a small- bowel follow-through as well as the C diff test. These were not done yet. His states that he has become progressively weak and can not stand without falling. He has been having bowel movements every day which are loose in nature. In fact he had a bowel movement today. Yesterday he did have some abdominal pain, however today he does not have any significant abdominal pain. Mainly he has felt very nauseated. He also has reflux today. He has a history of achalasia and has undergone Heller myotomy for this. This was 1 year ago. His states his abdominal distension has been increases well. He has no fevers. He mainly came in today because he is very weak and nauseated. He has not eaten much in the last 2 days but he has been able to drink an electrolyte solution Review of Systems Status of ROS: Reports: 10 or more systems reviewed and unremarkable except as noted in History and below [facility] Medical History Achalasia of esophagus (12/2020) Cavitary lesion of lung (11/2020) Constipated Degeneration of intervertebral disc of cervical region (2011) Depression (2006) Dyslipidemia Gastroesophageal reflux disease Ileostomy present (~06/2021) Obstructive sleep apnea treated with continuous positive airway pressure (CPAP) Orthostatic hypotension Parkinson's disease (2005) Perforation of intestine (06/20/21) Prediabetes (2012) Restless legs syndrome (2010) Syncope Vitamin D deficiency Surgical History H/O ileostomy H/O right hemicolectomy (~05/2021) History of cervical discectomy (1999) History of discectomy (2000) History of esophageal surgery (12/2020) History of hernia repair (1965) Status post deep brain stimulator placement (08/2014) Status post Matthew fundoplication (03/18/21) Status post reversal of ileostomy (01/10/22) Surgically created abdominal mucous fistula Family History Father Coronary artery disease Mother Coronary artery disease Stroke, Onset Age: 74 Family/Other Parkinsons disease, Onset Age: 50 Social History Narrative: exercises regularly. 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, 1 step daughter Non-smoker Rare alcohol use Highest level of school completed/degree received: high school graduate Smoking Status: Never smoker How often do you have a drink containing alcohol: monthly or less Alcohol type: wine How many standard drinks containing alcohol do you have on a typical day: 1 or 2 AUDIT-C Alcohol total score: 1 Non-prescribed substance use: denies use Caffeine: Yes (coffee daily) Little interest or pleasure in doing things: not at all Feeling down, depressed, or hopeless: not at all service: No Meds Home Medications and Allergies Home Medications Medication Instructions Recorded Confirmed Type amantadine HCl 137 mg 274 mg PO .Bedtime 11/25/21 01/28/22 History capsule,extended release 24 hr carbidopa ER 61.25 mg-levodopa 245 1 cap PO QID 11/25/21 01/28/22 History mg capsule,extended release citalopram 10 mg tablet 10 mg PO DAILY 11/25/21 01/28/22 History ondansetron 4 mg disintegrating 4 mg PO .Daily as needed PRN 11/25/21 01/28/22 History tablet pravastatin 80 mg tablet 80 mg PO HS 01/10/22 01/28/22 History simethicone 125 mg chewable tablet 125 - 250 mg PO BID PRN 01/25/22 01/28/22 History (Mylanta Gas) carbidopa 25 mg-levodopa 100 mg 1 tab PO BID PRN 02/02/22 02/02/22 History tablet Allergies Allergy/AdvReac Type Severity Reaction Status Date / Time No Known Allergies Allergy Verified 02/02/22 10:22 Exam Narrative: Exam Narrative: General appearance: Alert, cooperative, and in no distress, though patient is somewhat fatigued appearing Eyes: PERRLA, eye lids clear, and sclera white HENT Head: Normocephalic Ears: External ears normal Pulmonary: Breathing nonlabored on room air Cardiovascular Heart: Regular rate Gastrointestinal Abdominal: Soft. Nontender. Mild lead distended. Incision is clean without erythema. Packing in place. Skin: Normal skin color, texture, and turgor. No rashes or lesions. Neurologic: No focal deficits Psychiatric: Alert, oriented, cooperative, normal affect. Const: Vital Signs, click to edit/add: Vital Signs - 24 hr 02/02/22 09:52 02/02/22 09:29 02/02/22 09:58 Temperature 97.4 F L Pulse Rate 99 Pulse Rate [Left P ulse Oximeter] 98 Blood Pressure Blood Pressure [Ri ght Upper Arm] 133/83 Pulse Oximetry 99 98 97 Oxygen Delivery Me thod Room Air 02/02/22 10:00 02/02/22 10:44 02/02/22 11:24 Temperature Pulse Rate 98 98 94 Pulse Rate [Left P ulse Oximeter] Blood Pressure 133/80 Blood Pressure [Ri ght Upper Arm] Pulse Oximetry 97 100 99 Oxygen Delivery Me thod 02/02/22 11:32 Temperature Pulse Rate Pulse Rate [Left P ulse Oximeter] Blood Pressure 125/80 Blood Pressure [Ri ght Upper Arm] Pulse Oximetry Oxygen Delivery Me thod Results Labs Labs: Abnormal lab results 02/02/22 02/02/22 02/02/22 Range/Units 10:08 10:08 10:55 Park % (Auto) 11.8 H (0.0-11.0) % Sodium 131 L (135-149) mmol/L Chloride 91 L (96-114) mmol/L Urine Ketones 3+ A (Negative) Urine Bilirubin 1+ A (Negative) Diabetes panel 02/02/22 Range/Units 10:08 Sodium 131 L (135-149) mmol/L Potassium 3.8 (3.6-5.1) mmol/L Chloride 91 L (96-114) mmol/L Carbon Dioxide 29 (20-32) mmol/L BUN 30 (7-30) mg/dL Creatinine 0.8 (0.5-1.5) mg/dL Glucose 109 (60-115) mg/dL Calcium 8.5 (8.4-10.6) mg/dL AST 18 (12-35) U/L ALT 5 (4-50) U/L Alkaline Phosphatase 133 (40-150) U/L Total Protein 6.4 (6.0-8.3) g/dL Albumin 3.8 (3.3-5.0) g/dL Thyroid panel 02/02/22 Range/Units 10:08 TSH 2.980 (0.270-4.20) uIU/mL Calcium panel 02/02/22 Range/Units 10:08 Calcium 8.5 (8.4-10.6) mg/dL Albumin 3.8 (3.3-5.0) g/dL Pituitary panel 02/02/22 02/02/22 Range/Units 10:08 10:08 Sodium 131 L (135-149) mmol/L Potassium 3.8 (3.6-5.1) mmol/L Chloride 91 L (96-114) mmol/L Carbon Dioxide 29 (20-32) mmol/L BUN 30 (7-30) mg/dL Creatinine 0.8 (0.5-1.5) mg/dL Glucose 109 (60-115) mg/dL Calcium 8.5 (8.4-10.6) mg/dL TSH 2.980 (0.270-4.20) uIU/mL Adrenal panel 02/02/22 Range/Units 10:08 Sodium 131 L (135-149) mmol/L Potassium 3.8 (3.6-5.1) mmol/L Chloride 91 L (96-114) mmol/L Carbon Dioxide 29 (20-32) mmol/L BUN 30 (7-30) mg/dL Creatinine 0.8 (0.5-1.5) mg/dL Glucose 109 (60-115) mg/dL Calcium 8.5 (8.4-10.6) mg/dL Total Bilirubin 0.6 (0.1-1.5) mg/dL AST 18 (12-35) U/L ALT 5 (4-50) U/L Alkaline Phosphatase 133 (40-150) U/L Total Protein 6.4 (6.0-8.3) g/dL Albumin 3.8 (3.3-5.0) g/dL All other labs normal. Imaging Abdomen CT scan report/results: report reviewed and image reviewed (Diagnostic I maging Report Patient: Andrew Pang [facility]#: [id number]: 1955cct:[id number]: EDService Date: 02/02/22Attending Dr: Ordering Physician: Carlin Christensen M.D. Date of Service: 02/02/22 Procedure(s): CT abdomen pelvis w con Accession Number(s): [id number] cc: Jodie Stauffer) Assessment and Plan Assessment and plan (1) Open abdominal wall wound: Status: Acute (2) Weakness: Status: Acute (3) Dysphagia: Problem comment: He does complain of dysphagia although he is able to swallow some food but he feels similar to when he needed surgery for Heller myotomy. We will obtain an upper GI with small-bowel follow-through to make sure that things are going down well. Patient's is also concerned for aspiration just because ?occasionally things, up? and he had similar symptoms before his Heller myotomy. We will obtain a chest x-ray to rule that out. Patient has not had any fevers or cough. Status: Acute (4) Status post reversal of ileostomy: Problem comment: Patient's constipation is now better, he is having multiple bowel movements. He does take MiraLax every day and I recommended to decrease his MiraLax to half a dose a day so we do not get behind on his constipation. We will also obtain C diff to make sure that is not playing a role in his multiple bowel movements. Patient's will continue doing dressing changes daily. We will see him in clinic in 2 weeks for follow-up on his wound. I offered them a visit in the [facility]ound [facility] for a consultation, however they declined. Status: Acute (5) Hyponatremia: Status: Acute (6) Parkinson's disease: Problem comment: Patient's Parkinson's disease significantly contributes to his mobility. He has not been doing his regular exercises and has not been as active and I think that contributes to his decreased mobility. I recommended to go back to his bicycle exercises starting at 10-15 minutes per day. He should continue walking as much as possible. He should be doing stretching exercises with the arms and legs. I cautioned them to avoid strenuous activity like core exercises and heavy lifting to avoid incisional hernia. I would like to check CBC and BMP to make sure he is not anemic and make sure that his potassium and sodium are in the normal range and did not contribute to his decreased mobility. Status: Chronic (7) SBO (small bowel obstruction): Status: Acute Plan The patient is a 66-year-old male status post ileostomy takedown in with nausea, small bowel distension and weakness. CT scan shows diffuse small bowel dilatation which is concerning for bowel obstruction. He has continued to have bowel movements since surgery so this is likely possibly a partial obstruction. Differential includes anastomotic stricture from scarring or inflammation, verses ileus verses bowel motility issues from Parkinson's. Because of his persistent loose stools, the plan will be to check for C difficile colitis there is well though his inflammatory markers are all normal. He should be strict NPO except for sips with necessary med. Because of concern for esophageal stricture from achalasia, we will not place an NG tube at this time (his stomach is not particularly distended on imaging). I explained to the patient and his that the management of early postop bowel obstruction is watchful waiting. Unless he would develop signs of sepsis or bowel compromise, I would not plan on operating given the increased risk of bowel injury. I did review the images with the radiologist. There is no sign of anastomotic leak or abscess, and as mentioned his inflammatory markers are all normal which is reassuring. Discussed with the hospitalist that since his nutrition has been poor for some time, he would likely benefit from TPN. TSH is normal, however will correct electrolytes. Will also minimize medication that decrease bowel motility. Continue with daily dressing changes per nursing (orders placed).
--- NOTE | 2022-02-02 12:29 | ED.NURSE ---
Pt and belongings to [facility]
--- NOTE | 2022-02-02 12:41 | P.IMHP_ITS ---
Hospitalist- H&P: HPI History of Present Illness Date Seen: 02/03/22 Chief complaint: Recent surgery possible infection Narrative: ADMISSION HISTORY AND PHYSICAL - HOSPITALIST Chief Complaint: I am getting weaker, not doing well after surgery HPI: This is a 66-year-old with severe Parkinson's disease that includes and implantable deep brain stimulator and history of colonic perforation secondary to constipation that presents 3 and half weeks out from his ileostomy takedown. He reports he is having trouble passing bowel movements, feeling bloated and unable to keep up with his hydration and caloric needs. His resulting worsening weakness inability to do ADLs. His , Natasha, is exhausted. She cannot lift and care for him physically around the clock. He denies any fever, blood per rectum, vomiting. He does report a poor appetite, increasing weakness, mild headache and GERD symptoms. No chest pain or palpitations. 66-year-old male with Parkinson's disease presents for evaluation of end ileostomy takedown.? Patient underwent exploratory laparotomy, right hemicol ectomy, fecal disimpaction and creation of end ileostomy and transverse mucous fistula for perforated ascending colon due to fecal impaction on 06/20/2021 I've updated the [facility], medications and allergies in the Expanse tabs. INVESTIGATIONS: LABS/MICRO/ECG/IMAGING REVIEW OF SYSTEMS: 12-point ROS completed with patient and negative unless otherwise stated in HPI or below. PHYSICAL EXAM: CODE STATUS: CONSTITUTIONAL: Conversive, good historian. A/O. Knows setting and context. VITAL SIGNS: see record. HEENT: Normocephalic, atraumatic. PERRL, EOMI, conjunctivae pink, no scleral icterus. Ears and nose externally normal. Pharynx normal. NECK: No JVD. No carotid bruit, no thyromegaly, no adenopathy. CHEST: Clear to auscultation bilaterally HEART: S1 and S2 normal. No harsh murmurs. Edema MUSCULOSKELETAL: No gross joint deformity or swelling. NEURO: Cranial nerves intact. Grossly intact. No asymmetric findings. SKIN: No rashes, petechiae, concerning changes PSYCHIATRIC: Euthymic. ADMIT TO MEDSURG: CCU FLOOR CARE DVT: Lovenox GI: PO intake Time spent: 70 minutes examining patient, conferring with family and patient, care staff, developing care plan [facility] Medical History Achalasia of esophagus (12/2020) Cavitary lesion of lung (11/2020) Constipated Degeneration of intervertebral disc of cervical region (2011) Depression (2006) Dyslipidemia Gastroesophageal reflux disease Ileostomy present (~06/2021) Obstructive sleep apnea treated with continuous positive airway pressure (CPAP) Orthostatic hypotension Parkinson's disease (2005) Perforation of intestine (06/20/21) Prediabetes (2012) Restless legs syndrome (2010) Syncope Vitamin D deficiency Surgical History H/O ileostomy H/O right hemicolectomy (~05/2021) History of cervical discectomy (1999) History of discectomy (2000) History of esophageal surgery (12/2020) History of hernia repair (1965) Status post deep brain stimulator placement (08/2014) Status post Matthew fundoplication (03/18/21) Status post reversal of ileostomy (01/10/22) Surgically created abdominal mucous fistula Family History Father Coronary artery disease Mother Coronary artery disease Stroke, Onset Age: 74 Family/Other Parkinsons disease, Onset Age: 50 Social History Narrative: exercises regularly. 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 Non-smoker Rare alcohol use Highest level of school completed/degree received: high school graduate Smoking Status: Never smoker How often do you have a drink containing alcohol: monthly or less Alcohol type: wine How many standard drinks containing alcohol do you have on a typical day: 1 or 2 AUDIT-C Alcohol total score: 1 Non-prescribed substance use: denies use Caffeine: Yes (coffee daily) Little interest or pleasure in doing things: not at all Feeling down, depressed, or hopeless: not at all service: No Meds Home Medications and Allergies Home Medications Medication Instructions Recorded Confirmed Type amantadine HCl 137 mg 274 mg PO HS 11/25/21 02/02/22 History capsule,extended release 24 hr carbidopa ER 61.25 mg-levodopa 245 1 cap PO QID 11/25/21 02/02/22 History mg capsule,extended release citalopram 10 mg tablet 10 mg PO DAILY 11/25/21 02/02/22 History ondansetron 4 mg disintegrating 4 mg PO Q8H PRN 11/25/21 02/02/22 History tablet pravastatin 80 mg tablet 80 mg PO HS 01/10/22 02/02/22 History simethicone 125 mg chewable tablet 125 - 250 mg PO BID PRN 01/25/22 02/02/22 History (Mylanta Gas) carbidopa 25 mg-levodopa 100 mg 1 tab PO BID PRN 02/02/22 02/02/22 History tablet Allergies Allergy/AdvReac Type Severity Reaction Status Date / Time No Known Allergies Allergy Verified 02/02/22 10:22 Exam Const: Vital Signs, click to edit/add: Vital Signs - 24 hr 02/02/22 09:52 02/02/22 09:29 02/02/22 09:58 Temperature 97.4 F L Pulse Rate 99 Pulse Rate [Left P ulse Oximeter] 98 Blood Pressure Blood Pressure [Ri ght Upper Arm] 133/83 Pulse Oximetry 99 98 97 Oxygen Delivery [facility] Room Air 02/02/22 10:00 02/02/22 10:44 02/02/22 11:24 Temperature Pulse Rate 98 98 94 Pulse Rate [Left P ulse Oximeter] Blood Pressure 133/80 Blood Pressure [Ri ght Upper Arm] Pulse Oximetry 97 100 99 Oxygen Delivery [facility] 02/02/22 11:32 02/02/22 12:01 Temperature Pulse Rate Pulse Rate [Left P ulse Oximeter] Blood Pressure 125/80 128/78 Blood Pressure [Ri ght Upper Arm] Pulse Oximetry Oxygen Delivery [facility] Hospitalist - H&P: Result Labs Labs: Short CBC 02/02/22 Range/Units 10:08 WBC 4.51 (4.50-11.00) K/uL Hgb 14.1 (13.5-17.5) gm/dL Hct 42.0 (37.0-53.0) % Plt Count 351 (140-440) K/uL BMP 02/02/22 10:08 Sodium 131 L Potassium 3.8 Chloride 91 L Carbon Dioxide 29 BUN 30 Creatinine 0.8 Glucose 109 Calcium 8.5 Liver Function 09/14/22 Range/Units 10:08 Total Bilirubin 0.6 (0.1-1.5) mg/dL Direct Bilirubin 0.4 (0.0-0.5) mg/dL AST 18 (12-35) U/L ALT 5 (4-50) U/L Alkaline Phosphatase 133 (40-150) U/L Albumin 3.8 (3.3-5.0) g/dL Urine 02/02/22 Range/Units 10:55 Urine Color Yellow (Yellow) Urine Appearance Clear (Clear) Urine pH 7.5 (5.0-8.5) Ur Specific [place] 1.015 (1.000-1.030) Urine Protein Negative (Negative) Urine Glucose (UA) Negative (Negative)
--- NOTE | 2022-02-02 13:41 | PM.IMHP1 ---
Hospitalist- H&P: ADILENE History of Present Illness Date Seen: 02/03/22 Chief complaint: Recent surgery possible infection Narrative: Andrew Pang is a 66 year old male [facility] Medical History Achalasia of esophagus (12/2020) Cavitary lesion of lung (11/2020) Constipated Degeneration of intervertebral disc of cervical region (2011) Depression (2006) Dyslipidemia Gastroesophageal reflux disease Ileostomy present (~06/2021) Obstructive sleep apnea treated with continuous positive airway pressure (CPAP) Orthostatic hypotension Parkinson's disease (2005) Perforation of intestine (06/20/21) Prediabetes (2012) Restless legs syndrome (2010) Syncope Vitamin D deficiency Surgical History H/O ileostomy H/O right hemicolectomy (~05/2021) History of cervical discectomy (1999) History of discectomy (2000) History of esophageal surgery (12/2020) History of hernia repair (1965) Status post deep brain stimulator placement (08/2014) Status post Matthew fundoplication (03/18/21) Status post reversal of ileostomy (01/10/22) Surgically created abdominal mucous fistula Family History Father Coronary artery disease Mother Coronary artery disease Stroke, Onset Age: 74 Family/Other Parkinsons disease, Onset Age: 50 Social History Narrative: exercises regularly. 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 Non-smoker Rare alcohol use Highest level of school completed/degree received: high school graduate Smoking Status: Never smoker How often do you have a drink containing alcohol: monthly or less Alcohol type: wine How many standard drinks containing alcohol do you have on a typical day: 1 or 2 AUDIT-C Alcohol total score: 1 Non-prescribed substance use: denies use Caffeine: Yes (coffee daily) Little interest or pleasure in doing things: not at all Feeling down, depressed, or hopeless: not at all service: No Meds Home Medications and Allergies Home Medications Medication Instructions Recorded Confirmed Type amantadine HCl 137 mg 274 mg PO HS 07/07/22 09/14/22 History capsule,extended release 24 hr carbidopa ER 61.25 mg-levodopa 245 1 cap PO QID 11/25/21 02/02/22 History mg capsule,extended release citalopram 10 mg tablet 10 mg PO DAILY 11/25/21 02/02/22 History ondansetron 4 mg disintegrating 4 mg PO Q8H PRN 11/25/21 02/02/22 History tablet pravastatin 80 mg tablet 80 mg PO HS 01/10/22 02/02/22 History simethicone 125 mg chewable tablet 125 - 250 mg PO BID PRN 01/25/22 02/02/22 History (Mylanta Gas) carbidopa 25 mg-levodopa 100 mg 1 tab PO BID PRN 02/02/22 02/02/22 History tablet Allergies Allergy/AdvReac Type Severity Reaction Status Date / Time No Known Allergies Allergy Verified 02/02/22 10:22 Exam Const: Vital Signs, click to edit/add: Vital Signs - 24 hr 02/02/22 09:52 02/02/22 09:29 02/02/22 09:58 Temperature 97.4 F L Pulse Rate 99 Pulse Rate [Left P ulse Oximeter] 98 Pulse Rate [Pulse Oximeter] Respiratory Rate Blood Pressure Blood Pressure [Ri ght Arm] Blood Pressure [Ri ght Upper Arm] 133/83 Pulse Oximetry 99 98 [facility] 02/02/22 10:00 02/02/22 10:44 02/02/22 11:24 Temperature Pulse Rate 98 98 94 Pulse Rate [Left P ulse Oximeter] Pulse Rate [Pulse Oximeter] Respiratory Rate Blood Pressure 133/80 Blood Pressure [Ri ght Arm] Blood Pressure [Ri ght Upper Arm] Pulse Oximetry 97 100 [facility] 02/02/22 11:32 02/02/22 12:01 02/02/22 12:44 Temperature 97.5 F L Pulse Rate Pulse Rate [Left P ulse Oximeter] Pulse Rate [Pulse Oximeter] 91 Respiratory Rate 16 Blood Pressure 125/80 128/78 Blood Pressure [Ri ght Arm] 150/150 H Blood Pressure [Ri ght Upper Arm] Pulse Oximetry 98 Oxygen Delivery [facility] Room Air 02/02/22 12:51 Temperature Pulse Rate Pulse Rate [Left P ulse Oximeter] Pulse Rate [Pulse Oximeter] Respiratory Rate 16 Blood Pressure Blood Pressure [Ri ght Arm] Blood Pressure [Ri ght Upper Arm] Pulse Oximetry 98 Oxygen Delivery Me thod Room Air Hospitalist - H&P: Result Labs Labs: Short CBC 02/02/22 Range/Units 10:08 WBC 4.51 (4.50-11.00) K/uL Hgb 14.1 (13.5-17.5) gm/dL Hct 42.0 (37.0-53.0) % Plt Count 351 (140-440) K/uL BMP 02/02/22 10:08 Sodium 131 L Potassium 3.8 Chloride 91 L Carbon Dioxide 29 BUN 30 Creatinine 0.8 Glucose 109 Calcium 8.5 Liver Function 02/02/22 Range/Units 10:08 Total Bilirubin 0.6 (0.1-1.5) mg/dL Direct Bilirubin 0.4 (0.0-0.5) mg/dL AST 18 (12-35) U/L ALT 5 (4-50) U/L Alkaline Phosphatase 133 (40-150) U/L Albumin 3.8 (3.3-5.0) g/dL Urine 02/02/22 Range/Units 10:55 Urine Color Yellow (Yellow) Urine Appearance Clear (Clear) Urine pH 7.5 (5.0-8.5) Ur Specific [place] 1.015 (1.000-1.030) Urine Protein Negative (Negative) Urine Glucose (UA) Negative (Negative)
[2022-02-02] MEDS: 5 % DEX/0.9 SOD CHL+KCL 20 mEq 1,000 ML 100 ML IV ×2 (14:05→23:49)
[2022-02-02] MEDS: PANTOPRAZOLE SODIUM 40 MG INJ IVP (14:11)
[2022-02-02 15:55] LABS: C.Difficile Negative (Negative); CDIFFEPI 027 PRESUMPTIVE NEGATIVE (Negative)
--- NOTE | 2022-02-02 18:00 | CRLHL7_ITS ---
For Patients: As a result of the Century Cures Act, medical imaging exams and procedure reports are released immediately into your electronic medical record. You may view this report before your referring provider. If you have questions, please contact your health care provider. Indication: GUIDANCE FOR PICC LINE PLACEMENT Technique: Grayscale ultrasound of the right brachial vein and right jugular vein. IMPRESSION: Sonographic guidance for right arm PICC line placement. Dictated by Alexey Carter MD @ 02/03/2022 9:48:42 AM (Electronically Signed)
--- NOTE | 2022-02-02 19:30 | CRLHL7_ITS ---
For Patients: As a result of the Century Cures Act, medical imaging exams and procedure reports are released immediately into your electronic medical record. You may view this report before your referring provider. If you have questions, please contact your health care provider. INDICATION: PICC placement. TECHNIQUE: Chest 1 view. COMPARISON: Chest radiograph 01/28/2022. FINDINGS: Interval placement right upper extremity with the tip in the distal SVC. Unchanged stimulation over the right upper chest with leads extending cranially along the lateral right neck. The cardiomediastinal silhouette size is normal. There is no focal pulmonary opacity, pleural effusion or pneumothorax. The visualized osseous structures are unremarkable for age. Impression: New right upper extremity PICC with the catheter tip in the distal SVC. Dictated by Olga Gomez MD @ 02/02/2022 8:01:58 PM (Electronically Signed)
[2022-02-02 19:38] LABS: Magnesium* 2.6 mg/dL (1.5-2.6); Phosphorus* 3.5 mg/dL (2.5-4.5); Triglycerides* 95 mg/dL (40-149)
[2022-02-02] MEDS: NON-FORMULARY MEDICATION (Citalopram 10 MG) 10 EACH PO (21:37)
--- NOTE | 2022-02-02 23:39 | PC.NURSE ---
Shift Note: Pt friendly and cooperative. VS WNL and LS COA. Denies pain. voiding regularly. C-diff negative, pt had 2 small loose stools this shift. PICC placed this evening, pt to start TPN tomorrow. Maintaining sips/chips diet at this time.
[2022-02-02] MEDS: CITALOPRAM HYDROBROMIDE 20 MG TABLET 10 MG PO (23:49)
[2022-02-02] MEDS: PRAVASTATIN SODIUM 20 MG TABLET 80 MG PO (23:49)
[2022-02-03] VITALS (9 sets, daily range): BP systolic 115–137; BP diastolic 74–94; PULSE 86–91; RESP 18; TEMP 36.3–37; O2SAT 95–97; BMI 19.5
[2022-02-03] MEDS: OMEPRAZOLE 40MG CAPSULE PO ×2 (04:56→17:27)
[2022-02-03 05:59] LABS: Basophils Percent Auto 0.5 % (0.0-3.0); Hematocrit 37.6 % (37.0-53.0); Hemoglobin* 12.6 gm/dL (13.5-17.5); Immature Granulocytes Abs Auto 0.01 K/uL (0.00-0.30); Lymphocytes Percent Auto 34.9 % (20-44); Mean Corpuscular HGB Conc 34 gm/dL (32-36); Mean Corpuscular Hemoglobin 30 pg (26-34); Mean Corpuscular Volume 89 fL (80-100); Monocytes Percent Auto 11.6 % (0.0-11.0); Neutrophils Percent Auto 51.7 % (42.0-72.0); Platelet Count* 302 K/uL (140-440); RDW Coefficient of Variation % 13.3 % (11.5-15.5); Red Blood Count 4.21 m/uL (4.30-5.90); White Blood Count* 3.87 K/uL (4.50-11.00)
[2022-02-03 06:01] LABS: Slide Review Reflex No
[2022-02-03 06:11] LABS: Chloride* 95 mmol/L (96-114); Potassium* 3.8 mmol/L (3.6-5.1); Sodium* 130 mmol/L (135-149)
[2022-02-03 06:12] LABS: INR 1.02 (0.91-1.10); Prothrombin Time 13.8 Seconds
[2022-02-03 06:13] LABS: Aspartate Amino Transferase* 15 U/L (12-35); Bilirubin Total* 0.5 mg/dL (0.1-1.5); Carbon Dioxide* 27 mmol/L (20-32); Creatinine* 0.6 mg/dL (0.5-1.5); Est. Creatinine Clearance* 70.92; Estimated Glomerular Filt Rate 107 ml/min; Total Protein* 5.3 g/dL (6.0-8.3)
[2022-02-03 06:14] LABS: Alkaline Phosphatase* 109 U/L (40-150); Blood Urea Nitrogen* 14 mg/dL (7-30); Calcium* 7.7 mg/dL (8.4-10.6); Glucose* 112 mg/dL (60-115); Magnesium* 2.3 mg/dL (1.5-2.6); Phosphorus* 2.2 mg/dL (2.5-4.5); Triglycerides* 86 mg/dL (40-149)
[2022-02-03 06:15] LABS: Alanine Aminotransferase* < 4 U/L (4-50)
--- NOTE | 2022-02-03 07:29 | PC.NURSE ---
SHIFT NOTE -: Pt cooperative, A&O. VSS on RA. Denies pain, N/V, SOB, and CP. Using urinal in bed overnight, no stools overnight. PICC patent, dressing C/D/I. Surgical dressing C/D/I. Uneventful night, pt resting in bed with call light within reach.
[2022-02-03] MEDS: ONDANSETRON ODT 4 MG TAB PO (08:41)
--- NOTE | 2022-02-03 11:30 | PM.GSPN ---
Subjective Subjective Date Seen: 02/03/22 Interval history: Andrew states that he feels better. No abdominal pain. No nausea. He is somewhat more distended however. He continues to have the main complaint of weakness. PICC placed yesterday in anticipation of starting TPN. Exam Narrative: Exam Narrative: General: Cachectic, no acute distress Respiratory: Breathing nonlabored on room CV: Regular rate and rhythm Abdomen: Soft, nontender. Mildly distended as compared to yesterday. Incision without erythema. Wound was changed at bedside today no purulence. Const: Vital Signs, click to edit/add: Vital Signs - 24 hr 02/02/22 11:32 02/02/22 12:01 02/02/22 12:44 Temperature 97.5 F L Pulse Rate [Pulse Oximeter] 91 Respiratory Rate 16 Blood Pressure 125/80 128/78 Blood Pressure [Ri ght Arm] 150/150 H Pulse Oximetry 98 Oxygen Delivery Me thod Room Air 02/02/22 12:51 02/02/22 14:30 02/02/22 15:00 Temperature Pulse Rate [Pulse Oximeter] 92 Respiratory Rate 16 16 Blood Pressure Blood Pressure [Ri ght Arm] Pulse Oximetry 98 98 Oxygen Delivery Me thod Room Air Room Air 02/02/22 15:00 02/02/22 19:00 02/02/22 22:00 Temperature 97.5 F L 97.9 F Pulse Rate [Pulse Oximeter] 92 91 Respiratory Rate 18 18 18 Blood Pressure Blood Pressure [Ri ght Arm] 143/86 H 123/83 Pulse Oximetry 95 95 95 Oxygen Delivery Me thod Room Air Room Air Room Air 02/02/22 23:45 02/02/22 23:45 02/03/22 03:00 Temperature 98 F 97.6 F Pulse Rate [Pulse Oximeter] 96 88 86 Respiratory Rate 20 20 18 Blood Pressure Blood Pressure [Ri ght Arm] 120/89 137/94 H Pulse Oximetry 96 97 Oxygen Delivery Me thod Room Air Room Air 02/03/22 06:00 02/03/22 09:10 02/03/22 09:10 Temperature 97.6 F Pulse Rate [Pulse Oximeter] 86 86 Respiratory Rate 18 18 18 Blood Pressure Blood Pressure [Ri ght Arm] 137/94 H Pulse Oximetry 96 96 Oxygen Delivery Me thod Room Air Room Air Labs/Imaging Labs Labs: White blood cell count remains normal without left shift. C diff was negative. Magnesium within normal limits. Patient remains hyponatremic but potassium is within normal limits. Progress Note: A&P Assessment and plan (1) SBO (small bowel obstruction): Status: Acute (2) Open abdominal wall wound: Status: Acute (3) Weakness: Status: Acute (4) Dysphagia: Status: Acute (5) Status post reversal of ileostomy: Status: Acute (6) Hyponatremia: Status: Acute Plan The patient is 24 days status post ileostomy takedown with possible partial bowel obstruction, weakness and failure to thrive at home. Currently he feels better and he continues to have bowel movements however he does seem more distended today. -I have advised him to be NPO except for sips with meds. I am reluctant to place an NG tube at this time because of history of esophageal stricture and issues with dysphagia. As long as he is not nauseated we can hold off on this. -recommend starting TPN -Lovenox for DVT prophylaxis -continue PT/OT
[2022-02-03] MEDS: 5 % DEX/0.9 SOD CHL+KCL 20 mEq 1,000 ML 100 ML IV (12:01)
[2022-02-03] MEDS: 5 % DEX/0.9 SOD CHL+KCL 20 mEq 1,000 ML 35 ML IV (12:02)
[2022-02-03] MEDS: AA 5 %/CALCIUM/LYTES/DEXT 20 % 2,000 ML 50 ML IVPB (12:19)
--- NOTE | 2022-02-03 15:31 | PC.NURSE ---
End of shift note: Assessment: pt vs able to make needs known in much better spirits today and strength improved. moves with assist x1 to commode. TPN started today and lipd to start tonight. Plan: continue supportive cares, TPN, and bowel rest. Family: not present at bedside during shift.
--- NOTE | 2022-02-03 15:47 | P.IMPN_ITS ---
Progress Note: A&P Assessment and plan (1) SBO (small bowel obstruction): Problem details: Atypical. Clearly inflammation, wall thickening, possibly a stricture at the anastomosis. In discussions with General surgery we are going to take a conservative approach to his motility and obstructive symptoms. Complete GI rest with NPO status. Ice chips are appropriate for dry mouth. TPN and fluids adjusted. Very much appreciate the assistance of nutrition and Pharmacy. Status: Acute (2) Open abdominal wall wound: Problem details: Wound care orders ongoing. No significant clinical concern. Status: Acute (3) Weakness: Problem details: Likely related to protein calorie malnutrition, PICC line in place. TPN running. Status: Acute (4) Dysphagia: Problem details: Chronic. Following. Status: Acute (5) Status post reversal of ileostomy: Problem details: Complicated course since his takedown. GI rest with for preop hydration and nutrition parenterally. Status: Acute (6) Hyponatremia: Problem details: Chronic, trending. Electrolyte abnormalities including sodium, chloride, potassium are all being monitored and adjusted by the TPN Status: Acute Subjective Date Seen: 02/03/22 Interval history: Daily Progress Note - Hospital Medicine Day #: 2 PICC line placed 02/02, day 2 TPN day 1 CC: Weakness, NPO status, nonspecific small-bowel obstruction/motility dysfunction OVERNIGHT UPDATES FROM STAFF & MED, LAB, IMAGING UPDATES Andrew feel somewhat better than he did yesterday. He is in his chair today able to communicate with me. He does report that he has felt a little distended today. No significant abdominal pain. He has not passed any stool overnight. CBC reflects probably hemodilution this morning. Hemoglobin is down to 12.6. Complete metabolic panel reveals mildly depressed sodium and chloride. Mildly depressed calcium. Mildly depressed phosphorus. Albumin is down trending. C diff negative Stool culture pending, viral PCR pending Review of Systems: See subjective Cardiac: No new chest pain/pressure/palpitations. Respiratory: no new dyspnea. GI: No abdominal bloating Objective: Baseline cachectic. Alert. Interactive. Vitals: see above Lungs: Clear. Cardiac: S1S2. Abdomen: Open wound is very small and was noted yesterday to have no discharge, dry. Packing just mildly yellow. About the size of a dime. Disposition/Potential discharge - Likely to return to previous living situation. Total time is 35 minutes with greater than 50% spent in counseling and coordination of care. Exam Const: Vital Signs, click to edit/add: Vital Signs - 24 hr 02/02/22 19:00 02/02/22 22:00 02/03/22 15:00 Temperature 97.9 F Pulse Rate [Pulse Oximeter] 91 88 Respiratory Rate 18 18 18 Blood Pressure [Ri ght Arm] 123/83 Pulse Oximetry 95 95 Oxygen Delivery Me thod Room Air Room Air 02/02/22 23:45 02/02/22 23:45 02/03/22 03:00 Temperature 98 F 97.6 F Pulse Rate [Pulse Oximeter] 96 88 86 Respiratory Rate 20 20 18 Blood Pressure [Ri ght Arm] 120/89 137/94 H Pulse Oximetry 96 97 Oxygen Delivery Me thod Room Air Room Air 02/03/22 06:00 02/03/22 09:10 02/03/22 09:10 Temperature 97.6 F Pulse Rate [Pulse Oximeter] 86 86 Respiratory Rate 18 18 18 Blood Pressure [Ri ght Arm] 137/94 H Pulse Oximetry 96 96 Oxygen Delivery Me thod Room Air Room Air 02/03/22 11:41 02/03/22 14:51 Temperature 98.6 F Pulse Rate [Pulse Oximeter] 91 Respiratory Rate 18 18 Blood Pressure [Ri ght Arm] 121/81 Pulse Oximetry 97 97 Oxygen Delivery Me thod Room Air Room Air Labs Labs: Laboratory Results - last 24 hr 02/02/22 02/02/22 02/03/22 10:08 13:33 05:40 WBC 3.87 L RBC 4.21 L Hgb 12.6 L Hct 37.6 MCV 89 MCH 30 MCHC 34 RDW Coeff of Latoya 13.3 Plt Count 302 Neut % (Auto) 51.7 Lymph % (Auto) 34.9 [place] % (Auto) 11.6 H Eos % (Auto) 1.0 Baso % (Auto) 0.5 Neut # (Auto) 2.00 Lymph # (Auto) 1.40 [place] # (Auto) 0.40 Eos # (Auto) 0.00 Baso # (Auto) 0.00 Abs Immat Gran (auto) 0.01 INR Sodium Potassium Chloride Carbon Dioxide BUN Creatinine Estimated Creat Clear Estimated GFR Glucose Calcium Phosphorus 3.5 Magnesium 2.6 Total Bilirubin AST ALT Alkaline Phosphatase Total Protein Albumin Triglycerides 95 Stl C.difficile Tox PCR Negative St C. diff Tox Epid 027 PRESUMPTIVE NEGATIVE 02/03/22 02/03/22 05:40 05:40 WBC RBC Hgb Hct MCV MCH MCHC RDW Coeff of Latoya Plt Count Neut % (Auto) Lymph % (Auto) [place] % (Auto) Eos % (Auto) Baso % (Auto) Neut # (Auto) Lymph # (Auto) [place] # (Auto) Eos # (Auto) Baso # (Auto) Abs Immat Gran (auto) INR 1.02 Sodium 130 L Potassium 3.8 Chloride 95 L Carbon Dioxide 27 BUN 14 Creatinine 0.6 Estimated Creat Clear 70.92 Estimated GFR 107 Glucose 112 Calcium 7.7 L Phosphorus 2.2 L Magnesium 2.3 Total Bilirubin 0.5 AST 15 ALT < 4 L Alkaline Phosphatase 109 Total Protein 5.3 L Albumin 3.0 L Triglycerides 86 Stl C.difficile Tox PCR St C. diff Tox Epid 027
[2022-02-03] MEDS: CITALOPRAM HYDROBROMIDE 20 MG TABLET 10 MG PO (20:53)
[2022-02-03] MEDS: PRAVASTATIN SODIUM 20 MG TABLET 80 MG PO (20:54)
[2022-02-03] MEDS: ENOXAPARIN 40 MG/0.4 ML INJ SUBCUT (20:54)
[2022-02-03] MEDS: OMEPRAZOLE 20 MG CAPSULE DR 40 MG PO (22:46)
[2022-02-03] MEDS: FAMOTIDINE 20 MG TABLET PO (22:46)
--- NOTE | 2022-02-03 22:50 | PC.NURSE ---
Shift Note [id number]: Pt friendly and cooperative, able to verbalize needs. VS WNL and LS COA. BS active, abdomen slightly distended. Pt denies pain or flatus at this time. Moves well to BSC with assist x1. NPO with sips of water for meds. Pt c/o increasing heartburn discomfort. Order obtained for additional dose of Prilosec and Pecid PO. TPN infusing without difficulty, lipids to be initiated tomorrow 02/04.
[2022-02-04] VITALS (13 sets, daily range): BP systolic 101–124; BP diastolic 58–83; PULSE 56–97; RESP 16–18; TEMP 36.3–37.1; O2SAT 93–97
[2022-02-04 06:40] LABS: HCO3 VBG 31 mmol/L (21-28); Ionized Calcium* 1.12 mmol/L (1.11-1.30); Lactate* 0.7 mmol/L (0.5-1.9); PCO2 VBG 48 mmHG (40-50); PO2 VBG 37.8 mmHG (25-47)
--- NOTE | 2022-02-04 06:53 | PC.NURSE ---
Shift note 23-07: Pt alert, uses call light for needs, up to BSC w/ SBA and walker. Abd softly distended, BS's hypo, lg loose stool x1, tolerating sips and sips w/o nausea. TPN infusing. Krishg to RLQ CDI.
[2022-02-04 06:56] LABS: Hematocrit 40.5 % (37.0-53.0); Hemoglobin* 13.5 gm/dL (13.5-17.5); Mean Corpuscular HGB Conc 33 gm/dL (32-36); Mean Corpuscular Hemoglobin 30 pg (26-34); Mean Corpuscular Volume 90 fL (80-100); Platelet Count* 329 K/uL (140-440); Red Blood Count 4.51 m/uL (4.30-5.90); White Blood Count* 4.69 K/uL (4.50-11.00)
[2022-02-04 07:27] LABS: Albumin* 3.2 g/dL (3.3-5.0); Chloride* 97 mmol/L (96-114)
[2022-02-04 07:28] LABS: Potassium* 4.7 mmol/L (3.6-5.1); Slide Review Reflex No; Sodium* 131 mmol/L (135-149)
[2022-02-04 07:29] LABS: Creatinine* 0.6 mg/dL (0.5-1.5); Est. Creatinine Clearance* 70.87; Estimated Glomerular Filt Rate 107 ml/min
[2022-02-04 07:30] LABS: Alkaline Phosphatase* 100 U/L (40-150); Aspartate Amino Transferase* 19 U/L (12-35); Bilirubin Total* 0.4 mg/dL (0.1-1.5); Blood Urea Nitrogen* 11 mg/dL (7-30); Carbon Dioxide* 28 mmol/L (20-32); Gamma Glutamyl Transpeptidase* 22 U/L (8-55); Glucose* 114 mg/dL (60-115); Lipase* 59 U/L (23-300); Phosphorus* 3.6 mg/dL (2.5-4.5); Total Protein* 5.8 g/dL (6.0-8.3)
[2022-02-04 07:31] LABS: Magnesium* 2.5 mg/dL (1.5-2.6)
[2022-02-04 07:33] LABS: C Reactive Protein* 0.6 mg/dL (0.5-1.0)
[2022-02-04 07:44] LABS: Alanine Aminotransferase* < 4 U/L (4-50)
[2022-02-04 07:54] LABS: Iron* 68 ug/dL (49-181)
[2022-02-04 08:04] LABS: Percent Iron Saturation 33 % (20-50); Total Iron Binding Capacity 209 ug/dL (261-462)
[2022-02-04] MEDS: OMEPRAZOLE 20 MG CAPSULE DR 40 MG PO ×2 (08:58→21:20)
[2022-02-04] MEDS: FAMOTIDINE 20 MG TABLET PO ×2 (09:30→21:20)
--- NOTE | 2022-02-04 10:00 | PM.GSPN ---
Subjective Subjective Date Seen: 02/04/22 Interval history: Andrew is feeling better today. His nausea and pain are gone. He states that he does have hiccups from time to time. He has continued to have bowel movements; 2 last evening and 1 large 1 today. He still feels weak and unable to walk. He has worked with therapies. Exam Narrative: Exam Narrative: General: Frail-appearing Abdomen: Soft. Less distended. Incision without erythema. Active bowel sounds. Const: Vital Signs, click to edit/add: Vital Signs - 24 hr 02/03/22 15:00 02/03/22 11:41 02/03/22 14:51 Temperature 98.6 F Pulse Rate [Left R adial] Pulse Rate [Pulse Oximeter] 88 91 Respiratory Rate 18 18 18 Blood Pressure [Ri ght Arm] 121/81 Pulse Oximetry 97 97 [facility] Room Air 02/03/22 17:00 02/03/22 21:00 02/03/22 22:00 Temperature 97.8 F 97.4 F L Pulse Rate [Left R adial] Pulse Rate [Pulse Oximeter] 88 86 Respiratory Rate 18 18 18 Blood Pressure [Ri ght Arm] 115/74 119/80 Pulse Oximetry 95 96 96 Oxygen Delivery Ia thod Room Air Room Air Room Air 02/04/22 00:30 02/04/22 00:30 02/04/22 04:08 Temperature 97.7 F 97.4 F L Pulse Rate [Left R adial] Pulse Rate [Pulse Oximeter] 87 87 80 Respiratory Rate 16 16 16 Blood Pressure [Ri ght Arm] 124/83 117/78 Pulse Oximetry 95 96 [facility] Room Air 02/04/22 06:00 02/04/22 07:43 02/04/22 08:49 Temperature 97.9 F Pulse Rate [Left R adial] 95 95 Pulse Rate [Pulse Oximeter] 88 88 Respiratory Rate 16 16 16 Blood Pressure [Ri ght Arm] 116/79 Pulse Oximetry 96 96 [facility] Room Air Labs/Imaging Labs Labs: Labs are within normal limits except for mild hyponatremia. Progress Note: A&P Assessment and plan (1) SBO (small bowel obstruction): Problem details: Atypical. Clearly inflammation, wall thickening, possibly a stricture at the anastomosis. In discussions with General surgery we are going to take a conservative approach to his motility and obstructive symptoms. Complete GI rest with NPO status. Ice chips are appropriate for dry mouth. TPN and fluids adjusted. Very much appreciate the assistance of nutrition and Pharmacy. Status: Acute (2) Open abdominal wall wound: Problem details: Wound care orders ongoing. No significant clinical concern. Status: Acute (3) Weakness: Problem details: Likely related to protein calorie malnutrition, PICC line in place. TPN running. Status: Acute (4) Status post reversal of ileostomy: Problem details: Complicated course since his takedown. GI rest with for preop hydration and nutrition parenterally. Status: Acute (5) Hyponatremia: Problem details: Chronic, trending. Electrolyte abnormalities including sodium, chloride, potassium are all being monitored and adjusted by the TPN Status: Acute Plan The patient is a 66-year-old male with possible partial small-bowel obstruction versus ileus after ileostomy takedown. He is better today overall. He has continued to have copious antegrade bowel function so it is unclear if this is a true obstruction or partial obstruction. He feels better overall now that he has been on bowel rest and TPN. I think it is okay to allow him to have popsicles or other items from the kitchen it, however he is instructed that if he develops nausea or excessive hiccups or burping that he needs to be strict NPO. He is agreeable with this plan. -continue PT OT anticipation of subacute placement after discharge -continue TPN until patient is tolerating a regular diet -continue Lovenox for DVT prophylaxis
[2022-02-04] MEDS: AA 5 %/CALCIUM/LYTES/DEXT 20 % 2,000 ML 50 ML IVPB (12:37)
[2022-02-04] MEDS: 5 % DEX/0.9 SOD CHL+KCL 20 mEq 1,000 ML 35 ML IV (12:38)
--- NOTE | 2022-02-04 13:45 | P.IMPN_ITS ---
Progress Note: A&P Assessment and plan (1) SBO (small bowel obstruction): Problem details: Atypical. Clearly inflammation, wall thickening, possibly a stricture at the anastomosis. In discussions with General surgery we are going to take a conservative approach to his motility and obstructive symptoms. Complete GI rest with NPO status. Ice chips are appropriate for dry mouth. TPN and fluids adjusted. Very much appreciate the assistance of nutrition and Pharmacy. Status: Acute (2) Open abdominal wall wound: Problem details: Wound care orders ongoing. No significant clinical concern. Status: Acute (3) Weakness: Problem details: Likely related to protein calorie malnutrition, PICC line in place. TPN running. Status: Acute (4) Status post reversal of ileostomy: Problem details: Complicated course since his takedown. GI rest with for preop hydration and nutrition parenterally. Status: Acute (5) Hyponatremia: Problem details: all improving on TPN Status: Acute Subjective Date Seen: 02/04/22 Interval history: Daily Progress Note - Hospital Medicine Day #: 3 PICC line placed 02/02, day 3 TPN day 2 CC: Weakness, NPO status, nonspecific small-bowel obstruction/motility dysfunction OVERNIGHT UPDATES FROM STAFF & MED, LAB, IMAGING UPDATES Andrew continues to improve. He went for a walk - with assist - this morning. It wore him out but he was up. His PICC line is providing the TPN and all is going well with that. vitals are stable. labs outlined below and are improving. Vital signs stable. I's and O's reviewed. Afebrile. Has TPN flowing at 50 mL an hour as well as D5 normal saline with potassium at [address] Anguiano saw the patient this morning and we conference to about his care plan. As his nausea and pain have improved we will go very slow on reintroduction of p.o. intake Today's chemistries all look improved. Sodium, potassium, calcium protein are all improved. Patient has Accu-Cheks and insulin ordered secondary to TPN. But no insulin has been needed. We continue his meds p.o. C diff negative Stool culture pending, viral PCR pending Review of Systems: See subjective Cardiac: No new chest pain/pressure/palpitations. Respiratory: no new dyspnea. GI: No abdominal bloating - some hiccups. Objective: Baseline cachectic. Alert. Interactive. Vitals: see above Lungs: Clear. Cardiac: S1S2. Abdomen: Open wound is very small and was noted yesterday to have no discharge, dry. Packing just mildly yellow. About the size of a dime. Disposition/Potential discharge - Likely to return to previous living situation if can continue cares; otherwise rehab/SNF Total time is 35 minutes with greater than 50% spent in counseling and coordination of care. Exam Const: Vital Signs, click to edit/add: Vital Signs - 24 hr 02/03/22 15:00 02/03/22 14:51 02/03/22 17:00 Temperature 97.8 F Pulse Rate [Left R adial] Pulse Rate [Pulse Oximeter] 88 88 Respiratory Rate 18 18 18 Blood Pressure [Ri ght Arm] 115/74 Pulse Oximetry 97 95 Oxygen Delivery [facility] Room Air Room Air 02/03/22 21:00 02/03/22 22:00 02/04/22 00:30 Temperature 97.4 F L Pulse Rate [Left R adial] Pulse Rate [Pulse Oximeter] 86 87 Respiratory Rate 18 18 16 Blood Pressure [Ri ght Arm] 119/80 Pulse Oximetry 96 96 [facility] 02/04/22 00:30 02/04/22 04:08 02/04/22 06:00 Temperature 97.7 F 97.4 F L Pulse Rate [Left R adial] Pulse Rate [Pulse Oximeter] 87 80 Respiratory Rate 16 16 16 Blood Pressure [Ri ght Arm] 124/83 117/78 Pulse Oximetry 95 96 96 [facility] Room [facility] Room Air Room Air 02/04/22 07:43 02/04/22 08:49 02/04/22 11:39 Temperature 97.9 F 98.7 F Pulse Rate [Left R adial] 95 95 56 L Pulse Rate [Pulse Oximeter] 88 88 93 Respiratory Rate 16 16 16 Blood Pressure [Ri ght Arm] 116/79 115/58 L Pulse Oximetry 96 93 Oxygen Delivery [place] [facility] Room Air Room Air Labs Labs: Laboratory Results - last 24 hr 02/04/22 02/04/22 02/04/22 04:00 05:41 05:41 WBC 4.69 RBC 4.51 Hgb 13.5 Hct 40.5 MCV 90 MCH 30 MCHC 33 Plt Count 329 VBG pH 7.420 VBG pCO2 48 VBG pO2 37.8 VBG HCO3 31 H Sodium 131 L Potassium 4.7 Chloride 97 Carbon Dioxide 28 BUN 11 Creatinine 0.6 Estimated Creat Clear 70.87 Estimated GFR 107 Glucose 114 Lactate 0.7 Calcium 8.0 L Ionized Calcium Jono 1.12 Phosphorus 3.6 Magnesium 2.5 Iron TIBC % Saturation Total Bilirubin 0.4 GGT 22 AST 19 ALT < 4 L Alkaline Phosphatase 100 C-Reactive Protein 0.6 Total Protein 5.8 L Albumin 3.2 L Lipase 59 TSH 02/04/22 02/04/22 05:41 05:41 WBC RBC Hgb Hct MCV MCH MCHC Plt Count VBG pH VBG pCO2 VBG pO2 VBG HCO3 Sodium Potassium Chloride Carbon Dioxide BUN Creatinine Estimated Creat Clear Estimated GFR Glucose Lactate Calcium Ionized Calcium Jono Phosphorus Magnesium Iron 68 TIBC 209 L % Saturation 33 Total Bilirubin GGT AST ALT Alkaline Phosphatase C-Reactive Protein Total Protein Albumin Lipase TSH 3.600
--- NOTE | 2022-02-04 18:35 | PC.NURSE ---
Discharge. Pt has been very pleasant. no pain IV, TPN and Lipids are infusing with no problems. BS active and abd is still dissented, said he can have popsicle and clears. no tray he has had one popsicle and a small cup of broth so far. he is taking sips. no flatus at this time. Moves well to BR. with assist x1 walker and IV pole to the BR, he is also taking in oce chips. Pt c/o increasing heartburn discomfort. HOB was elevated and problem was resolved. he is using the urinal. 2 small very soft BMs.
[2022-02-04] MEDS: ENOXAPARIN 40 MG/0.4 ML INJ SUBCUT (21:19)
[2022-02-04] MEDS: CITALOPRAM HYDROBROMIDE 20 MG TABLET 10 MG PO (21:19)
[2022-02-04] MEDS: PRAVASTATIN 80 MG TABLET 1 EACH PO (21:21)
[2022-02-04 22:40] LABS: Prealbumin 9.4 mg/dL (20.0-40.0)
[2022-02-05] VITALS (10 sets, daily range): BP systolic 104–123; BP diastolic 72–84; PULSE 81–98; RESP 16–20; TEMP 36.4–36.7; O2SAT 96–98
--- NOTE | 2022-02-05 07:01 | PC.NURSE ---
END OF SHIFT NOTE: PT PLEASANT AND COOPERATIVE. VSS AND WNL ON RA. AFEBRILE. PT DRINKING SIPS OF WATER AND HAD A POPSICLE. DRESSING TO RLQ IS CDI. PT DENIES CP, SOB, N/V. IV, TPN AND LIPIDS INFUSING WITHOUT ISSUE. PT USING URINAL.
[2022-02-05] MEDS: OMEPRAZOLE 20 MG CAPSULE DR 40 MG PO ×2 (08:32→21:09)
[2022-02-05] MEDS: FAMOTIDINE 20 MG TABLET PO ×2 (08:32→21:10)
[2022-02-05 10:31] LABS: Chloride* 95 mmol/L (96-114)
[2022-02-05 10:32] LABS: Potassium* 4.3 mmol/L (3.6-5.1); Sodium* 134 mmol/L (135-149)
[2022-02-05 10:34] LABS: Creatinine* 0.7 mg/dL (0.5-1.5); Est. Creatinine Clearance* 70.87; Estimated Glomerular Filt Rate 102 ml/min
[2022-02-05 10:35] LABS: Blood Urea Nitrogen* 12 mg/dL (7-30); Calcium* 8.6 mg/dL (8.4-10.6); Carbon Dioxide* 27 mmol/L (20-32); Glucose* 113 mg/dL (60-115)
[2022-02-05] MEDS: 5 % DEX/0.9 SOD CHL+KCL 20 mEq 1,000 ML 35 ML IV (12:34)
[2022-02-05] MEDS: AA 5 %/CALCIUM/LYTES/DEXT 20 % 2,000 ML 50 ML IVPB (12:34)
--- NOTE | 2022-02-05 14:15 | PM.GSPN ---
Subjective Subjective Date Seen: 02/05/22 Interval history: Andrew feels much better today. Nausea is completely gone and hiccups episodes are much less. He feels his abdominal mole distension is improved. He continues to pass copious gas and is still having multiple soft stools. He has been walking with therapy and has been up to the bathroom. Exam Narrative: Exam Narrative: General: No acute distress Abdomen: Very mildly distended. Soft and nontender. Incision without erythema. Const: Vital Signs, click to edit/add: Vital Signs - 24 hr 02/04/22 15:57 02/04/22 15:30 02/04/22 20:20 Temperature 97.4 F L 97.4 F L Pulse Rate [Left R adial] 86 86 Pulse Rate [Pulse Oximeter] 97 97 88 Respiratory Rate 16 16 16 Blood Pressure [Ri ght Arm] 101/73 101/66 Pulse Oximetry 97 96 Oxygen Delivery [facility] Room Air Room Air 02/04/22 22:00 02/04/22 23:00 02/04/22 23:50 Temperature 97.5 F L Pulse Rate [Left R adial] Pulse Rate [Pulse Oximeter] 88 83 Respiratory Rate 16 16 18 Blood Pressure [Ri ght Arm] 114/76 Pulse Oximetry 96 97 Oxygen Delivery [facility] Room Air Room Air 02/05/22 03:00 02/05/22 06:00 02/05/22 07:45 Temperature 97.6 F 97.5 F L Pulse Rate [Left R adial] 86 Pulse Rate [Pulse Oximeter] 84 97 Respiratory Rate 16 16 16 Blood Pressure [Ri ght Arm] 123/84 108/77 Pulse Oximetry 96 96 97 [facility] Room Air 02/05/22 07:45 02/05/22 11:15 Temperature 97.5 F L Pulse Rate [Left R adial] 86 94 Pulse Rate [Pulse Oximeter] 97 94 Respiratory Rate 16 18 Blood Pressure [Ri ght Arm] 104/75 Pulse Oximetry 98 Oxygen Delivery [facility] Room Air Progress Note: A&P Assessment and plan (1) Open abdominal wall wound: Problem details: Wound care orders ongoing. No significant clinical concern. Status: Acute (2) Dysphagia: Problem details: Chronic. Following. Status: Acute (3) Weakness: Problem details: Likely related to protein calorie malnutrition, PICC line in place. TPN running. Status: Acute (4) Parkinson's disease: Problem details: Patient's Parkinson's disease significantly contributes to his mobility. He has not been doing his regular exercises and has not been as active and I think that contributes to his decreased mobility. I recommended to go back to his bicycle exercises starting at 10-15 minutes per day. He should continue walking as much as possible. He should be doing stretching exercises with the arms and legs. I cautioned them to avoid strenuous activity like core exercises and heavy lifting to avoid incisional hernia. I would like to check CBC and BMP to make sure he is not anemic and make sure that his potassium and sodium are in the normal range and did not contribute to his decreased mobility. Status: Chronic Plan The patient is a 66-year-old male with Parkinson's disease who is approximately 1 month status post ileostomy takedown who was readmitted for weakness and failure to thrive as well as nausea and diarrhea. Imaging revealed possible small bowel obstruction, however he has continued to have antegrade bowel function throughout his hospital stay. He is feeling significantly better today and so we will allow him to have a bit more clear liquids as long as he takes things slowly. Consider advancing diet tomorrow if he does well today. I stressed the need to move slowly; however. -continue to work with PT and OT -continue TPN -continue Lovenox for DVT prophylaxis -anticipate will need rehab placement after hospital stay.
--- NOTE | 2022-02-05 15:17 | P.IMPN_ITS ---
Progress Note: A&P Assessment and plan (1) Open abdominal wall wound: Problem details: Wound care orders ongoing. No significant clinical concern. Status: Acute (2) Dysphagia: Status: Chronic (3) Weakness: Problem details: Likely related to protein calorie malnutrition, PICC line in place. TPN running. Status: Acute Assessment and Plan: Improving. (4) Parkinson's disease: Problem details: Patient's Parkinson's disease significantly contributes to his mobility. He has not been doing his regular exercises and has not been as active and I think that contributes to his decreased mobility. I recommended to go back to his bicycle exercises starting at 10-15 minutes per day. He should continue walking as much as possible. He should be doing stretching exercises with the arms and legs. I cautioned them to avoid strenuous activity like core exercises and heavy lifting to avoid incisional hernia. Status: Chronic Plan 66-year-old male with Parkinson's disease, approximately 1 month status post ileostomy takedown, readmitted for weakness, failure to thrive, nausea, and diarrhea. Imaging revealed possible small bowel obstruction, however he has continued to have antegrade bowel function throughout his hospital stay. He continues to feel better, nausea has resolved. Advancing to clears today. * Continue TPN through weekend. Adjust based on morning labs * Continue PT/OT * Lovenox for VTE prophylaxis * May need rehab placement after hospital stay. If strength, ADLs independence and ambulation improve by Monday, may be able to d/c home. Subjective Time Seen by Provider: 10:03 Date Seen: 02/05/22 Interval history: PICC line placed 02/02 TPN day 3 CC: Weakness, NPO status, nonspecific small-bowel obstruction/motility dysfunction Andrew is feeling a bit better today. Continues to have frequent small, loose BMs. Nausea with sips has resolved. He was able to walk with walker and assistance in hallway. His had questions about partial SBO, TPN, expected course. Questi ons were answered to her satisfaction. EXAM General: [No acute distress.] [Awake, alert, oriented x3.] Thin, cachectic. [No pallor.] [No jaundice.] Oropharynx: Clear. Mucous membranes [moist]. Cardiovascular: [Regular rate and rhythm]. [No murmurs, gallops, or rubs]. Respiratory: [Clear to auscultation bilaterally. No wheezes or crackles]. Abdomen: Bowel sounds [present], hypoactive at times. [Soft, nondistended, nontender]. Bandage is clean, dry, intact. Extremities: [No] pedal edema. Total time is 35 minutes with greater than 50% spent in counseling and coordination of care. Exam Const: Vital Signs, click to edit/add: Vital Signs - 24 hr 02/04/22 15:57 02/04/22 15:30 02/04/22 20:20 Temperature 97.4 F L 97.4 F L Pulse Rate [Left R adial] 86 86 Pulse Rate [Pulse Oximeter] 97 97 88 Respiratory Rate 16 16 16 Blood Pressure [Ri ght Arm] 101/73 101/66 Pulse Oximetry 97 96 Oxygen Delivery [facility] Room Air Room Air 02/04/22 22:00 02/04/22 23:00 02/04/22 23:50 Temperature 97.5 F L Pulse Rate [Left R adial] Pulse Rate [Pulse Oximeter] 88 83 Respiratory Rate 16 16 18 Blood Pressure [Ri ght Arm] 114/76 Pulse Oximetry 96 97 Oxygen Delivery [facility] Room Air Room Air 02/05/22 03:00 02/05/22 06:00 02/05/22 07:45 Temperature 97.6 F 97.5 F L Pulse Rate [Left R adial] 86 Pulse Rate [Pulse Oximeter] 84 97 Respiratory Rate 16 16 16 Blood Pressure [Ri ght Arm] 123/84 108/77 Pulse Oximetry 96 96 97 [facility] Room Air 02/05/22 07:45 02/05/22 11:15 Temperature 97.5 F L Pulse Rate [Left R adial] 86 94 Pulse Rate [Pulse Oximeter] 97 94 Respiratory Rate 16 18 Blood Pressure [Ri ght Arm] 104/75 Pulse Oximetry 98 Oxygen Delivery [facility] Room Air Labs Labs: Laboratory Results - last 24 hr 02/03/22 02/05/22 05:40 10:13 Sodium 134 L Potassium 4.3 Chloride 95 L Carbon Dioxide 27 BUN 12 Creatinine 0.7 Estimated Creat Clear 70.87 Estimated GFR 102 Glucose 113 Calcium 8.6 Prealbumin 9.4 L
--- NOTE | 2022-02-05 17:16 | PC.NURSE ---
End of shift. ? Pt is still very pleasant.? no pain ? IV, TPN are infusing with no problems. ?he is passing more gas, BS active and abd is less dissented,? said he can have clears, from kitchen, go slow and no tray ? he has had two popsicle and a cup of broth.? he is going slow and taking sips. ? PT worked with him and he walked in the halls 2 times today. ? with assist x1, walker, GB and IV pole, no heartburn today. he has been up in the chair.. ? he is using the urinal.? 1 BMs.?IV is patent and picc line is also patent.
[2022-02-05] MEDS: PRAVASTATIN 80 MG TABLET 1 EACH PO (21:09)
[2022-02-05] MEDS: ENOXAPARIN 40 MG/0.4 ML INJ SUBCUT (21:09)
[2022-02-05] MEDS: CITALOPRAM HYDROBROMIDE 20 MG TABLET 10 MG PO (21:10)
[2022-02-06] VITALS (7 sets, daily range): BP systolic 108–124; BP diastolic 71–84; PULSE 83–91; RESP 16–18; TEMP 36.3–36.9; O2SAT 92–98
--- NOTE | 2022-02-06 05:27 | PC.NURSE ---
[id number]: Patient pleasant and cooperative. PICC patent w/ fluids and TPN running. Dressing to abdomen C/D/I. A1,4ww,GB. Walked halls x1 and tolerated well. Denies pain. Denies N/V. C/o of a sore bottom. Obstetric Assistant assessed, no pressure ulcers. Encouraged to off-load with little compliance even with reminders. Patient educated on the importance of off-loading to prevent pressure ulcers.
[2022-02-06 08:12] LABS: Chloride* 98 mmol/L (96-114); Potassium* 4.5 mmol/L (3.6-5.1); Sodium* 132 mmol/L (135-149)
[2022-02-06 08:15] LABS: Blood Urea Nitrogen* 14 mg/dL (7-30); Carbon Dioxide* 27 mmol/L (20-32); Creatinine* 0.6 mg/dL (0.5-1.5); Est. Creatinine Clearance* 70.87; Estimated Glomerular Filt Rate 107 ml/min; Glucose* 137 mg/dL (60-115)
[2022-02-06 08:16] LABS: Calcium* 8.5 mg/dL (8.4-10.6)
[2022-02-06] MEDS: FAMOTIDINE 20 MG TABLET PO ×2 (09:21→21:26)
[2022-02-06] MEDS: OMEPRAZOLE 20 MG CAPSULE DR 40 MG PO ×2 (09:21→21:27)
--- NOTE | 2022-02-06 11:24 | PM.IMPN1 ---
Progress Note: A&P Assessment and plan (1) SBO (small bowel obstruction): Problem details: Atypical. Clearly inflammation, wall thickening, possibly a stricture at the anastomosis. In discussions with General surgery we are going to take a conservative approach to his motility and obstructive symptoms. Complete GI rest with NPO status. Ice chips are appropriate for dry mouth. TPN and fluids adjusted. Very much appreciate the assistance of nutrition and Pharmacy. Status: Acute (2) Open abdominal wall wound: Problem details: Wound care orders ongoing. No significant clinical concern. Status: Acute (3) Dysphagia: Status: Chronic (4) Weakness: Problem details: Likely related to protein calorie malnutrition, PICC line in place. TPN running. Status: Acute Assessment and Plan: Improving. (5) Parkinson's disease: Problem details: Patient's Parkinson's disease significantly contributes to his mobility. He has not been doing his regular exercises and has not been as active and I think that contributes to his decreased mobility. I recommended to go back to his bicycle exercises starting at 10-15 minutes per day. He should continue walking as much as possible. He should be doing stretching exercises with the arms and legs. I cautioned them to avoid strenuous activity like core exercises and heavy lifting to avoid incisional hernia. Status: Chronic (6) Hyponatremia: Problem details: improving on TPN Status: Acute (7) Low vitamin B12 level: Status: Acute (8) Anemia: Status: Acute (9) Gastroesophageal reflux disease: Problem details: EGD with dilation in the past Status: Acute (10) Dyslipidemia: Status: Chronic (11) Fatigue: Problem details: Due to Parkinson Status: Chronic (12) Obstructive sleep apnea treated with continuous positive airway pressure (CPAP): Problem details: Not using CPAP Status: Chronic (13) Depression: Status: Acute (14) Status post reversal of ileostomy: Problem details: Complicated course since his takedown. GI rest with for preop hydration and nutrition parenterally. Status: Acute Plan 66-year-old male with Parkinson's disease, approximately 1 month status post ileostomy takedown, readmitted for weakness, failure to thrive, nausea, and diarrhea. Imaging revealed possible small bowel obstruction, however he has continued to have antegrade bowel function throughout his hospital stay. He continues to feel better, nausea has resolved. Tolerating sips of clears. Continue TPN through weekend. Adjust based on morning labs Continue PT/OT Lovenox for VTE prophylaxis May need rehab placement after hospital stay. If strength, ADLs independence and ambulation improve by Monday, may be able to d/c home. Subjective Time Seen by Provider: 08:30 Date Seen: 02/06/22 Interval history: PICC line placed 02/02 TPN day 4 CC: Weakness, NPO status, nonspecific small-bowel obstruction/motility dysfunction Andrew notes some bloating today. Sips of clears is going well, no nausea or vomiting. Continues to have frequent small, loose BMs. EXAM General: No acute distress. Awake, alert, oriented x3. Thin, cachectic. No pallor. No jaundice. Oropharynx: Clear. Mucous membranes moist. Cardiovascular: Regular rate and rhythm. No murmurs, gallops, or rubs. Respiratory: Clear to auscultation bilaterally. No wheezes or crackles. Abdomen: Bowel sounds present. Soft, mildly distended, nontender. Bandage is clean, dry, intact. Extremities: No pedal edema. Exam Const: Vital Signs, click to edit/add: Vital Signs - 24 hr 02/05/22 15:41 02/05/22 15:43 02/05/22 14:55 Temperature 97.7 F Pulse Rate [Left R adial] 87 87 Pulse Rate [Pulse Oximeter] 98 98 Respiratory Rate 16 16 18 Blood Pressure [Ri ght Arm] 112/72 Pulse Oximetry 98 97 [facility] 02/05/22 19:00 02/05/22 23:00 02/05/22 22:00 Temperature 97.9 F 98.1 F Pulse Rate [Left R adial] 84 81 Pulse Rate [Pulse Oximeter] 84 84 Respiratory Rate 20 18 Blood Pressure [Ri ght Arm] 107/74 115/80 Pulse Oximetry 96 97 97 Oxygen Delivery [facility] Room Air Room Air Room Air 02/06/22 03:00 02/06/22 07:45 02/06/22 07:45 Temperature 97.5 F L 97.3 F L Pulse Rate [Left R adial] 84 88 Pulse Rate [Pulse Oximeter] Respiratory Rate 16 16 16 Blood Pressure [Ri ght Arm] 121/83 124/76 Pulse Oximetry 96 95 95 Oxygen Delivery [facility] Room Air Room Air Room Air 02/06/22 07:45 Temperature Pulse Rate [Left R adial] 88 Pulse Rate [Pulse Oximeter] Respiratory Rate 16 Blood Pressure [Ri ght Arm] Pulse Oximetry Oxygen Delivery [facility] Labs Labs: Laboratory Results - last 24 hr 02/06/22 07:50 Sodium 132 L Potassium 4.5 Chloride 98 Carbon Dioxide 27 BUN 14 Creatinine 0.6 Estimated Creat Clear 70.87 Estimated GFR 107 Glucose 137 H Calcium 8.5
--- NOTE | 2022-02-06 13:00 | PM.GSPN ---
Subjective Subjective Date Seen: 02/06/22 Interval history: This morning ce was feeling stable, however when I saw him he was having a bit more abdominal pain and distension. No nausea. He has not had a bowel movement since yesterday but continues to pass gas. He has been up walking multiple times. Exam Narrative: Exam Narrative: General: No acute distress Abdomen: Mildly more distended today but nontender. Incision without erythema. Const: Vital Signs, click to edit/add: Vital Signs - 24 hr 02/05/22 15:41 02/05/22 15:43 02/05/22 14:55 Temperature 97.7 F Pulse Rate [Left R adial] 87 87 Pulse Rate [Pulse Oximeter] 98 98 Respiratory Rate 16 16 18 Blood Pressure [Ri ght Arm] 112/72 Pulse Oximetry 98 97 Oxygen Delivery [facility] Room Air Room Air 02/05/22 19:00 02/05/22 23:00 02/05/22 22:00 Temperature 97.9 F 98.1 F Pulse Rate [Left R adial] 84 81 Pulse Rate [Pulse Oximeter] 84 84 Respiratory Rate 20 18 Blood Pressure [Ri ght Arm] 107/74 115/80 Pulse Oximetry 96 97 97 Oxygen Delivery [facility] Room Air Room Air Room Air 02/06/22 03:00 02/06/22 07:45 02/06/22 07:45 Temperature 97.5 F L 97.3 F L Pulse Rate [Left R adial] 84 88 Pulse Rate [Pulse Oximeter] Respiratory Rate 16 16 16 Blood Pressure [Ri ght Arm] 121/83 124/76 Pulse Oximetry 96 95 95 [facility] Room Air 02/06/22 07:45 02/06/22 11:36 Temperature 98.1 F Pulse Rate [Left R adial] 88 91 Pulse Rate [Pulse Oximeter] Respiratory Rate 16 16 Blood Pressure [Ri ght Arm] 117/84 Pulse Oximetry 98 Oxygen Delivery [facility] Room Air Progress Note: A&P Assessment and plan (1) SBO (small bowel obstruction): Problem details: Atypical. Clearly inflammation, wall thickening, possibly a stricture at the anastomosis. In discussions with General surgery we are going to take a conservative approach to his motility and obstructive symptoms. Complete GI rest with NPO status. Ice chips are appropriate for dry mouth. TPN and fluids adjusted. Very much appreciate the assistance of nutrition and Pharmacy. Status: Acute (2) Open abdominal wall wound: Problem details: Wound care orders ongoing. No significant clinical concern. Status: Acute Plan The patient is a 66-year-old male now 4 weeks status post ileostomy takedown with failure to thrive and possible partial small-bowel obstruction versus anastomotic stricture versus prolonged ileus. He had been progressing well on increasing his intake, however today's having a bit more pain and distension. Recommend backing off on the diet today with only sips and chips. -consider small-bowel follow-through tomorrow given that he has back tracked somewhat today. -continue Lovenox for DVT prophylaxis
[2022-02-06] MEDS: AA 5 %/CALCIUM/LYTES/DEXT 20 % 2,000 ML 50 ML IVPB (13:53)
[2022-02-06] MEDS: 5 % DEX/0.9 SOD CHL+KCL 20 mEq 1,000 ML 35 ML IV (13:54)
--- NOTE | 2022-02-06 18:49 | PC.NURSE ---
End of shift.? ? Pt is very pleasant.? he had abd pain 1-3.10 today/ was here and is loving and caring. ? IV, TPN are infusing with no problems. ?he is passing less gas today ? BS hypoactive. and abd is more dissented,? back to just ice chips. md was updated. . ? PT worked with him and he walked in the halls 6 times today.? OT worked gave him a shower. ? with assist x1,? walker, GB and IV pole,? no heartburn today.? he has been up in the chair.. ? he is using the urinal.? 0 BMs. last 24 hours. ?IV is patent and picc line is also patent.? dressing changed was done. blood was drawn off picc
[2022-02-06] MEDS: PRAVASTATIN 80 MG TABLET 1 EACH PO (21:25)
[2022-02-06] MEDS: CITALOPRAM HYDROBROMIDE 20 MG TABLET 10 MG PO (21:26)
[2022-02-06] MEDS: ENOXAPARIN 40 MG/0.4 ML INJ SUBCUT (21:26)
[2022-02-07] VITALS (7 sets, daily range): BP systolic 107–121; BP diastolic 64–80; PULSE 80–92; RESP 16–18; TEMP 36.3–36.5; O2SAT 94–97
--- NOTE | 2022-02-07 06:49 | PC.NURSE ---
[id number]: Patient pleasant and cooperative with cares. BS active. Passing gas. No complaints of abdomen pain. Encouraged to walk the mark but refused I am worn out, I won't make it. Educated on importance of movement to keep the bowels moving. Encouraged frequent repositioning in bed. Dressing to R. abdomen C/D/I. PICC patent. A1,4ww,GB. Denies N/V.
[2022-02-07 07:05] LABS: Albumin* 3.4 g/dL (3.3-5.0); Chloride* 98 mmol/L (96-114)
[2022-02-07 07:06] LABS: Potassium* 4.6 mmol/L (3.6-5.1); Sodium* 132 mmol/L (135-149)
[2022-02-07 07:08] LABS: Alkaline Phosphatase* 103 U/L (40-150); Aspartate Amino Transferase* 20 U/L (12-35); Bilirubin Total* 0.3 mg/dL (0.1-1.5); Blood Urea Nitrogen* 16 mg/dL (7-30); Carbon Dioxide* 27 mmol/L (20-32); Creatinine* 0.6 mg/dL (0.5-1.5); Est. Creatinine Clearance* 70.87; Estimated Glomerular Filt Rate 107 ml/min; Total Protein* 6.1 g/dL (6.0-8.3)
[2022-02-07 07:09] LABS: Alanine Aminotransferase* 4 U/L (4-50); Calcium* 8.6 mg/dL (8.4-10.6); Glucose* 114 mg/dL (60-115); Phosphorus* 4.1 mg/dL (2.5-4.5)
[2022-02-07] MEDS: FAMOTIDINE 20 MG TABLET PO ×2 (08:34→20:45)
[2022-02-07] MEDS: OMEPRAZOLE 20 MG CAPSULE DR 40 MG PO ×2 (08:34→20:45)
--- NOTE | 2022-02-07 09:19 | CRLHL7_ITS ---
For Patients: As a result of the Century Cures Act, medical imaging exams and procedure reports are released immediately into your electronic medical record. You may view this report before your referring provider. If you have questions, please contact your health care provider. Indication: POST OP ILEUS VS PARTIAL SBO Technique: Routine small bowel follow-through performed after the administration of 2 cups water-soluble contrast orally. Comparison: CT 02/02/2022 IMPRESSION: Distended loops of small bowel are present throughout the abdomen corresponding to the CT with relative nondistention of the colon. Anastomosis in the right side of the abdomen. No free air. No pleural effusion. Contrast remains within the water filled jejunum 23 hours post contrast administration. There is absence of colonic stool. Findings consistent with partial small-bowel obstruction, possibly due to an internal hernia adjacent to the anastomotic site. Dictated by Alexey Carter MD @ 02/08/2022 9:03:30 AM (Electronically Signed)
--- NOTE | 2022-02-07 10:08 | NUTR.NU ---
Nutrition Follow-up regarding TPN rate: Patient admitted 02/02/22 with h/o severe parkinson's, constipation, and intestinal perforation, s/p ileostomy with recent takedown ~4 weeks ago. Now admitted with anastomotic stricture and possible SBO. TPN initiated 02/03/22 at 50 mL/hr x 24 hours due to risk of refeeding syndrome. Per MD during IDT today, no sing of bowel function returning yet. Since TPN initiation, patient's labs have been stable (phosphate, potassium, magnesium, sodium, glucose, BUN, etc.). RDN recommends to increase TPN rate to goal of 80 mL/hr x 24 hours with lipids 3x per week, increasing by 10 mL/hr every 12 hours until goal is met. TPN rate of 80 mL/hr x 24 hours with lipids 3x/week provides 1920 mL fluid, 1900 kcals (28 kcals/kg), and 96 grams protein (1.4 g/kg) to meet estimated energy needs. RDN will inform pharmacy and MD of recommendations. RDN will continue to monitor and provide recommendations as needed.
--- NOTE | 2022-02-07 11:36 | PM.GSPN ---
Subjective Subjective Date Seen: 02/07/22 Interval history: Patient is not significantly changed. He continues to pass gas and had a bowel movement last night. He denies abdominal pain. He only had ice chips. His working with therapies. Exam Narrative: Exam Narrative: Abdomen: Soft, mildly distended, not tender to palpation, the right lower quadrant open incision is with wet to dry dressing in place, there is no surrounding erythema. Const: Vital Signs, click to edit/add: Vital Signs - 24 hr 02/06/22 15:18 02/06/22 15:18 02/06/22 15:20 Temperature 98.5 F Pulse Rate [Left R adial] 88 88 Respiratory Rate 16 16 16 Blood Pressure [Ri ght Arm] 117/71 Pulse Oximetry 92 92 Oxygen Delivery Me thod Room Air Room Air 02/06/22 19:00 02/06/22 23:00 02/06/22 23:00 Temperature 98.1 F 97.5 F L Pulse Rate [Left R adial] 89 83 Respiratory Rate 18 18 16 Blood Pressure [Ri ght Arm] 108/75 122/75 Pulse Oximetry 97 97 96 Oxygen Delivery Me thod Room Air Room Air Room Air 02/07/22 03:00 02/07/22 07:45 02/07/22 07:45 Temperature 97.5 F L 97.4 F L Pulse Rate [Left R adial] 87 80 Respiratory Rate 18 16 16 Blood Pressure [Ri ght Arm] 111/78 118/77 Pulse Oximetry 96 96 96 Oxygen Delivery Me thod Room Air Room Air Room Air Progress Note: A&P Assessment and plan (1) SBO (small bowel obstruction): Problem details: Patient is not significantly changed. His abdominal pain is not present today. He continues to pass gas and have bowel movements despite mild abdominal distension. We will obtain upper GI with small-bowel follow-through to see if contrast moves passed anastomosis. Status: Acute (2) Status post reversal of ileostomy: Status: Acute
[2022-02-07] MEDS: 5 % DEX/0.9 SOD CHL+KCL 20 mEq 1,000 ML 35 ML IV (12:08)
[2022-02-07] MEDS: AA 5 %/CALCIUM/LYTES/DEXT 20 % 2,000 ML 60 ML IVPB (12:08)
--- NOTE | 2022-02-07 13:28 | PM.IMPN1 ---
Progress Note: A&P Assessment and plan (1) SBO (small bowel obstruction): Status: Acute Assessment and Plan: Continues to have difficulty taking PO. I communicated with Dr. Myas who asked me to order a SBFT for today. (2) Status post reversal of ileostomy: Problem details: 01/10/2022 Dr. Mays Status: Chronic (3) Open abdominal wall wound: Status: Acute Assessment and Plan: Cares per surgery. (4) Dysphagia: Status: Chronic (5) Weakness: Problem details: Likely related to protein calorie malnutrition, PICC line in place. TPN running. Status: Acute Assessment and Plan: Improving. (6) Parkinson's disease: Problem details: Patient's Parkinson's disease significantly contributes to his mobility. He has not been doing his regular exercises and has not been as active and I think that contributes to his decreased mobility. I recommended to go back to his bicycle exercises starting at 10-15 minutes per day. He should continue walking as much as possible. He should be doing stretching exercises with the arms and legs. I cautioned them to avoid strenuous activity like core exercises and heavy lifting to avoid incisional hernia. Status: Chronic (7) Hyponatremia: Problem details: Stable on TPN Status: Acute (8) Low vitamin B12 level: Status: Acute (9) Gastroesophageal reflux disease: Problem details: EGD with dilation in the past Status: Acute (10) Dyslipidemia: Status: Chronic (11) Fatigue: Problem details: Due to Parkinson Status: Chronic (12) Obstructive sleep apnea treated with continuous positive airway pressure (CPAP): Problem details: Not using CPAP Status: Chronic (13) Depression: Status: Acute Plan 66-year-old male with Parkinson's disease, approximately 1 month status post ileostomy takedown, readmitted for weakness, failure to thrive, nausea, and diarrhea. Imaging revealed possible small bowel obstruction, however he has continued to have antegrade bowel function throughout his hospital stay. He continues to feel better, nausea has resolved. He is unable to tolerate even sips of clears. SBFT today. Continue TPN through weekend. Adjust based on morning labs Continue PT/OT Lovenox for VTE prophylaxis May need rehab placement after hospital stay. Subjective Time Seen by Provider: 08:25 Date Seen: 02/07/22 Interval history: PICC line placed 9/14 TPN started 02/03 CC: Weakness, NPO status, nonspecific small-bowel obstruction/motility dysfunction Andrew stopped having sips of clears yesteday because of abdominal bloating and pain. He is feeling better again today. No nausea or vomiting. Continues to have frequent small, loose BMs. EXAM General: No acute distress. Awake, alert, oriented x3. Thin, cachectic. No pallor. No jaundice. Oropharynx: Clear. Mucous membranes moist. Cardiovascular: Regular rate and rhythm. No murmurs, gallops, or rubs. Respiratory: Clear to auscultation bilaterally. No wheezes or crackles. Abdomen: Bowel sounds present. Soft, mildly distended, nontender. Bandage is clean, dry, intact. Extremities: No pedal edema. Exam Const: Vital Signs, click to edit/add: Vital Signs - 24 hr 02/06/22 15:18 02/06/22 15:18 02/06/22 15:20 Temperature 98.5 F Pulse Rate [Left R adial] 88 88 Respiratory Rate 16 16 16 Blood Pressure [Ri ght Arm] 117/71 Pulse Oximetry 92 92 Oxygen Delivery Or thod Room Air Room Air 02/06/22 19:00 02/06/22 23:00 02/06/22 23:00 Temperature 98.1 F 97.5 F L Pulse Rate [Left R adial] 89 83 Respiratory Rate 18 18 16 Blood Pressure [Ri ght Arm] 108/75 122/75 Pulse Oximetry 97 97 [facility] 02/07/22 03:00 02/07/22 07:45 02/07/22 07:45 Temperature 97.5 F L 97.4 F L Pulse Rate [Left R adial] 87 80 Respiratory Rate 18 16 16 Blood Pressure [Ri ght Arm] 111/78 118/77 Pulse Oximetry 96 96 96 Oxygen Delivery Or thod Room Air Room Air Room Air 02/07/22 11:40 Temperature 97.7 F Pulse Rate [Left R adial] 90 Respiratory Rate 18 Blood Pressure [Ri ght Arm] 121/80 Pulse Oximetry 97 Oxygen Delivery Or thod Room Air Labs Labs: Laboratory Results - last 24 hr 02/07/22 06:18 Sodium 132 L Potassium 4.6 Chloride 98 Carbon Dioxide 27 BUN 16 Creatinine 0.6 Estimated Creat Clear 70.87 Estimated GFR 107 Glucose 114 Calcium 8.6 Phosphorus 4.1 Magnesium 2.0 Total Bilirubin 0.3 AST 20 ALT 4 Alkaline Phosphatase 103 Total Protein 6.1 Albumin 3.4
--- NOTE | 2022-02-07 17:32 | PC.NURSE ---
Shift Summary: patient pleasant and cooperative. Up with one assist, walker and gait belt. Continues to be NPO. Denies pain even with dressing change. Denies chest pain or SOB. here today for visit.
[2022-02-07] MEDS: ENOXAPARIN 40 MG/0.4 ML INJ SUBCUT (20:44)
[2022-02-07] MEDS: CITALOPRAM HYDROBROMIDE 20 MG TABLET 10 MG PO (20:45)
[2022-02-07] MEDS: PRAVASTATIN 80 MG TABLET 1 EACH PO (20:48)
[2022-02-08] VITALS (28 sets, daily range): BP systolic 90–136; BP diastolic 40–84; PULSE 64–100; RESP 16–32; TEMP 35.7–36.9; O2SAT 94–100
[2022-02-08] MEDS: AA 5 %/CALCIUM/LYTES/DEXT 20 % 2,000 ML 70 ML IVPB (00:21)
--- NOTE | 2022-02-08 07:00 | PC.NURSE ---
pleasant and cooperative. Pt passing gas, no BM. Bowel tones active. No c/o pain. No c/o nausea. Pt declined a walk in the halls. VSS. Dressing to RLQ CDI. No insulin needed per protocol.
[2022-02-08] MEDS: ONDANSETRON ODT 4 MG TAB PO (08:41)
[2022-02-08] MEDS: FAMOTIDINE 20 MG TABLET PO ×2 (08:42→19:56)
[2022-02-08] MEDS: OMEPRAZOLE 20 MG CAPSULE DR 40 MG PO (08:42)
[2022-02-08 11:01] LABS: Chloride* 96 mmol/L (96-114)
[2022-02-08 11:02] LABS: Albumin* 3.4 g/dL (3.3-5.0)
[2022-02-08 11:03] LABS: Sodium* 132 mmol/L (135-149)
[2022-02-08 11:05] LABS: Alanine Aminotransferase* 5 U/L (4-50); Alkaline Phosphatase* 95 U/L (40-150); Aspartate Amino Transferase* 18 U/L (12-35); Bilirubin Total* 0.4 mg/dL (0.1-1.5); Blood Urea Nitrogen* 25 mg/dL (7-30); Carbon Dioxide* 28 mmol/L (20-32); Creatinine* 0.7 mg/dL (0.5-1.5); Est. Creatinine Clearance* 70.87; Estimated Glomerular Filt Rate 102 ml/min; Glucose* 132 mg/dL (60-115)
[2022-02-08 11:06] LABS: Calcium* 8.7 mg/dL (8.4-10.6); Magnesium* 1.9 mg/dL (1.5-2.6); Phosphorus* 4.2 mg/dL (2.5-4.5)
--- NOTE | 2022-02-08 12:16 | W.PM.NB ---
Nerve Block Nerve Block Time Seen by Provider: 11:30 Date Seen: 02/08/22 Type of block requested by surgeon for post-operative analgesia: TAP Side: bilateral Time out performed: Yes Verification of patient name: Yes Verification of date of : Yes Site marking: site marked Name of person performing procedure: Sukhjinder Continuous monitoring Was continuous monitoring of O2 sat, B/P, engine monitor, recorded every 15 minutes?: Yes Procedure Checklist: sterile prep, needles and gloves Ultrasound guided. Images saved: Yes Medications given in 5ml increments after negative aspiration: Marcaine %: 0.25 mL: 30 Needle gauge: 20 and Exparel mL: 10 Patient tolerated procedure well: Yes Additional comments: Needle noted adjacent to nerve Block Charges Block Charge (with Pro Fee): TAP Bilateral Use of Ultrasound Machine for Block: Yes- US Guidance/pain block
[2022-02-08] MEDS: BUPIVACAINE 0.25 %/EPI 1:200K 30 ml INJECTION (12:33)
--- NOTE | 2022-02-08 14:41 | PC.NURSE ---
Shift [id number] Pt this shift c/o of nausea, treated with sublingual Zofran. Able to take morning pills once stomach settled. Ambulate to bathroom x1 with gait belt and walker. TPN increased to 80ml/hr from 70ml. PICC patent and asymptomatic, IV L forearm asymptomatic. Xray this morning revealed abnormal bowel findings and surgery scheduled at noon. Preop forms signed, pt appears calm about the surgery and is hopeful it will help get him back on his stationary bike at home. Pt has not arrived back to unit as of 1454.
--- NOTE | 2022-02-08 15:08 | W.ANESCHARGE ---
Anesthesia Charges Start Date/Time Anesthesia Start Date: 02/08/22 Anesthesia Start Time: 11:41 Stop Date/Time Anesthesia Stop Date: 02/08/22 Anesthesia Stop Time: 15:06 Summary Emergency: Yes
[2022-02-08] MEDS: ONDANSETRON 2 MG/ML inj 4 MG IVP (15:13)
--- NOTE | 2022-02-08 15:21 | P.GSOP_ITS ---
Operative Note Date of procedure: 02/08/22 Type of Procedure: 1. Exploratory laparotomy. 2. Lysis of adhesions. 3. Revision of ileocolic anastomosis. Procedure Description: After discussing the risks and benefits of the procedure, the patient signed informed consent.? The operative site was marked and the patient was brought to the operating room and placed on the operating table in supine position.? Care was taken to pad the patient's pressure points.?? The patient was then intubated by anesthesia.??Koo catheter was placed under sterile conditions. The operative site was then prepped and draped in the usual sterile fashion.? A time-out was then performed. ? The open wound in the right paramedian incision was covered with Tegaderm. A midline laparotomy incision was then made with a scalpel through a well-healed laparotomy scar. Anterior fascia was grasped with Bernarda clamps and incised with Metzenbaum scissors. Posterior fascia and peritoneum were grasped and incised with Metzenbaum scissors. The abdomen was entered, and the fascia and peritoneum of the midline incision were divided with cautery. No adhesions to the abdominal wall were noted. A large Eliel retractor was placed into the laparotomy incision. Small bowel was then eviscerated and was largely dilated but all of the small bowel was viable. The anastomosis was identified in the right upper quadrant and was thickened on palpation suggestive of inflammation however it was widely patent. Small intestine was adherent tightly to the anastomosis in multiple areas and those adhesions were taken down with either cautery or Metzenbaum scissors. A single dense serosal adhesion to the anastomosis was divided with Metzenbaum scissors. This segment of the small bowel wall that was adherent to the anastomosis was then oversewn with 3-0 silk sutures. Colonic mesentery of the proximal transverse colon was adherent to the retroperitoneum and to the peritoneum of the right lateral abdominal wall. Those adhesions were carefully taken down with cautery. Hemostasis was achieved with cautery and clamps and Vicryl ties. The transverse colon was redundant with the proximal transferse colon making a bend near the liver. However, there was no evidence of obstruction and the caliber of the colon was normal. Once all the adhesions were lysed, I elected to revise ileocolic anastomosis. The colonic mesentery leading up to the anastomosis was divided with clamps and V icryl ties. The small bowel mesentery leading to the anastomosis was also divided with clamps and ties. The proximal transverse colon was then divided with blue load of AZUCENA stapler. The distal ileum was also divided with a blue load of AZUCENA stapler. The old ileocolic anastomosis was then passed off the field and sent to pathology. Prior to creating a new anastomosis, we ran the entire small bowel. The small bowel was eviscerated and ran from the ligament of Treitz to the terminal ileum leading up to the anastomosis. The bowel was dilated but there were no areas of compromised small bowel or strictures. We then proceeded with creating side to side functional end to end ileocolic anastomosis. An enterotomy was made 1 cm proximal to the staple line in the terminal ileum. The lumen of the small bowel was entered and thin green liquid came out from the lumen. This was suctioned out with minimal contamination of the intra-abdominal contents. The AZUCENA stapler handle was placed into the small bowel lumen. The transverse colon was then examined and a colotomy was made approximately 1 cm distal to the staple line. The other handle of the stapler was then inserted into the transverse colon. The ileocolic anastomosis was then made on the antimesenteric side. The anastomosis was examined from the inside and was patent and no bleeding was seen. The common enterotomy was then closed with interrupted Lambert 3-0 silk sutures. The anastomosis was palpated and was widely patent. The anastomosis was viable. A crotch stitch was placed with 3-0 silk suture. The mesenteric defect was then closed with a running 3-0 Vicryl suture. The small intestine was placed into the abdomen and anastomosis was placed into the right upper quadrant. Omentum was placed over the anastomosis. The abdomen was irrigated with at least 2 L of warm normal saline. The anterior fascia of the abdominal incision was then closed with 2 running 0-0 Maxon sutures. The dermis of the midline incision was reapproximated with interrupted 3-0 Vicryl sutures. The skin was closed with anni. Sterile dressings were placed over the midline incision. We then removed the Tegaderm overlying the right paramedian open wound. The open wound was then packed with Nu Gauze and covered with gauze and tape. All counts were correct in the end of the case. Patient was transferred to PACU in stable condition. ? The patient tolerated the procedure well. Findings: A few adhesions of small bowel to ileocolic anastomosis. Ileocolic anastomosis was patent. Anesthesia: GETA Surgeon: MD Lauren Gonsalez MD-assistant professor of mathematics Estimated blood loss (mL): 20 Condition: stable Disposition: PACU
--- NOTE | 2022-02-08 15:30 | W.ANESCHARGE ---
Anesthesia Charges Start Date/Time Anesthesia Start Date: 02/08/22 Anesthesia Start Time: 11:41 Stop Date/Time Anesthesia Stop Date: 02/08/22 Anesthesia Stop Time: 15:06 Summary Emergency: Yes
[2022-02-08] MEDS: dexAMETHasone 4 MG/ML VIAL IVPB (15:32)
--- NOTE | 2022-02-08 15:33 | P.IMPN_ITS ---
Progress Note: A&P Assessment and plan (1) SBO (small bowel obstruction): Status: Acute Assessment and Plan: Continues to have difficulty taking PO. Abnormal small-bowel follow-through, will have surgery by Dr. Mays today. (2) Status post reversal of ileostomy: Problem details: 01/10/2022 Dr. Mays Status: Chronic (3) Open abdominal wall wound: Status: Acute Assessment and Plan: Cares per surgery. (4) Dysphagia: Status: Chronic (5) Weakness: Problem details: Likely related to protein calorie malnutrition, PICC line in place. TPN running. Status: Acute Assessment and Plan: Improving. Continue PT and OT. (6) Parkinson's disease: Problem details: Patient's Parkinson's disease significantly contributes to his mobility. He has not been doing his regular exercises and has not been as active and I think that contributes to his decreased mobility. I recommended to go back to his bicycle exercises starting at 10-15 minutes per day. He should continue walking as much as possible. He should be doing stretching exercises with the arms and legs. I cautioned them to avoid strenuous activity like core exercises and heavy lifting to avoid incisional hernia. Status: Chronic (7) Hyponatremia: Status: Acute Assessment and Plan: Stable on TPN (8) Low vitamin B12 level: Status: Acute (9) Gastroesophageal reflux disease: Problem details: EGD with dilation in the past Status: Acute (10) Dyslipidemia: Status: Chronic (11) Fatigue: Problem details: Due to Parkinson Status: Chronic (12) Obstructive sleep apnea treated with continuous positive airway pressure (CPAP): Problem details: Not using CPAP Status: Chronic (13) Depression: Status: Acute Plan * Continue TPN through weekend. Adjust based on morning labs * Continue PT/OT * Lovenox for VTE prophylaxis * May need rehab placement after hospital stay. Subjective Time Seen by Provider: 11:00 Date Seen: 02/08/22 Interval history: PICC line placed 02/02 TPN started 02/03 CC: Weakness, NPO status, nonspecific small-bowel obstruction/motility dysfunction Andrew continues to have worsening bloating and abd pain despite being NPO. Abnormal SBFT, will go to surgery today. EXAM General: No acute distress. Awake, alert, oriented x3. Thin, cachectic. No pallor. No jaundice. Cardiovascular: Regular rate and rhythm. No murmurs, gallops, or rubs. Respiratory: Clear to auscultation bilaterally. No wheezes or crackles. Abdomen: Bowel sounds present. More distended today, mildly tender to palpation, no rebound tenderness or guarding. Bandage is clean, dry, intact. Exam Const: Vital Signs, click to edit/add: Vital Signs - 24 hr 02/07/22 16:01 02/07/22 16:02 02/07/22 20:00 Temperature 97.7 F 97.7 F Pulse Rate Pulse Rate [Left R adial] 86 92 Respiratory Rate 18 18 18 Blood Pressure Blood Pressure [Ri ght Arm] 107/70 107/64 Pulse Oximetry 94 94 97 Oxygen Delivery Sd thod Room Air Room Air Room Air 02/07/22 23:00 02/08/22 00:00 02/08/22 00:00 Temperature 97.6 F Pulse Rate Pulse Rate [Left R adial] 84 84 Respiratory Rate 18 18 20 Blood Pressure Blood Pressure [Ri ght Arm] 115/79 Pulse Oximetry 94 94 [facility] 02/08/22 02:44 02/08/22 07:00 02/08/22 08:00 Temperature 97.5 F L Pulse Rate Pulse Rate [Left R adial] 82 100 Respiratory Rate 20 20 20 Blood Pressure Blood Pressure [Ri ght Arm] 136/80 Pulse Oximetry 96 97 [facility] 02/08/22 08:00 02/08/22 15:02 02/08/22 15:05 Temperature 97.4 F L Pulse Rate 69 68 Pulse Rate [Left R adial] 100 Respiratory Rate 20 16 18 Blood Pressure 129/64 115/63 Blood Pressure [Ri ght Arm] 110/79 Pulse Oximetry 97 100 100 [facility] Room Air Room Air 02/08/22 15:10 02/08/22 15:15 Temperature Pulse Rate 79 79 Pulse Rate [Left R adial] Respiratory Rate 18 20 Blood Pressure 112/64 97/84 Blood Pressure [Ri ght Arm] Pulse Oximetry 100 100 [facility] Air Labs Labs: Laboratory Results - last 24 hr 02/08/22 10:40 Sodium 132 L Potassium 5.0 Chloride 96 Carbon Dioxide 28 BUN 25 Creatinine 0.7 Estimated Creat Clear 70.87 Estimated GFR 102 Glucose 132 H Calcium 8.7 Phosphorus 4.2 Magnesium 1.9 Total Bilirubin 0.4 AST 18 ALT 5 Alkaline Phosphatase 95 Total Protein 6.0 Albumin 3.4
--- NOTE | 2022-02-08 15:54 | SUR.PHASEI ---
Anesthesia placed in OR per anesthesia. !000 ml remove in OR. Not connected to suction in OR.
--- NOTE | 2022-02-08 16:21 | PC.NURSE ---
Patient complaining of nausea. IV medications given, HOB elevated per patient request, and essential oil patch placed on patient's chest.
[2022-02-08] MEDS: HYDROmorphone 0.5 mg/0.5 ml inj IVP ×2 (16:36→20:00)
[2022-02-08] MEDS: AA 5 %/CALCIUM/LYTES/DEXT 20 % 2,000 ML 80 ML IVPB (19:29)
[2022-02-08] MEDS: PRAVASTATIN 80 MG TABLET 1 EACH PO (20:00)
[2022-02-08] MEDS: CITALOPRAM HYDROBROMIDE 20 MG TABLET 10 MG PO (20:52)
--- NOTE | 2022-02-08 23:39 | PC.NURSE ---
Shift Note [id number]: Pt return from PACU at 1613, VS WNL and LS COA. Pt c/o nausea and 7/10 abdominal pain. Zofran given in PACU. NG connected to Low intermittent suction with yellow output. Surgical dressing to abdomen C,D,&I with active ice in place. Abdomen soft and BS absent. Koo patent and draining. TPN infusing. Small amount of water given with HS meds, pt has otherwise been NPO post-op.
[2022-02-09] VITALS (8 sets, daily range): BP systolic 109–133; BP diastolic 63–75; PULSE 97–104; RESP 18–20; TEMP 36.5–36.9; O2SAT 94–99
[2022-02-09] MEDS: KETOROLAC 30 MG/ML inj IVP ×2 (04:20→12:01)
--- NOTE | 2022-02-09 05:09 | PC.NURSE ---
[id number]: patient turn and repo in bed approx. Q2H, no nausea reported, pain meds per emar, TPN running through PICC line, NG patent to LIS. carroll patent and draining. incision c/d/i, ice to abd.
[2022-02-09] MEDS: FAMOTIDINE 20 MG TABLET PO ×2 (08:26→20:39)
--- NOTE | 2022-02-09 10:43 | PM.GSPN ---
Subjective Subjective Date Seen: 02/09/22 Interval history: Patient is doing well today. Patient underwent exploratory laparotomy with revision of his ileocolic anastomosis yesterday. His NG tube intraoperatively took out 1 L of fluid. Postoperatively he only has 500 mL of bilious drainage recorded. Patient does feel less nausea. He is not passing gas yet. He has not been out of bed yet. His pain is controlled. Exam Narrative: Exam Narrative: Abdomen: Soft, not distended, tender to palpation in bilateral lower quadrants, surgical incision is covered with clean and dry dressing. The right paramedian incision dressing was not changed today yet. Const: Vital Signs, click to edit/add: Vital Signs - 24 hr 02/08/22 15:02 02/08/22 15:05 02/08/22 15:10 Temperature 97.4 F L Pulse Rate 69 68 79 Pulse Rate [Left A pical] Respiratory Rate 16 18 18 Blood Pressure 129/64 115/63 112/64 Blood Pressure [Ri ght Arm] Pulse Oximetry 100 100 100 Oxygen Delivery Fl thod Room Air Room Air Room Air Oxygen Flow Rate 02/08/22 15:15 02/08/22 15:20 02/08/22 15:25 Temperature Pulse Rate 79 73 74 Pulse Rate [Left A pical] Respiratory Rate 20 20 16 Blood Pressure 97/84 109/57 L 100/65 Blood Pressure [Ri ght Arm] Pulse Oximetry 100 97 94 Oxygen Delivery Fl thod Room Air Room Air Room Air Oxygen Flow Rate 02/08/22 15:30 02/08/22 15:35 02/08/22 15:40 Temperature Pulse Rate 74 73 77 Pulse Rate [Left A pical] Respiratory Rate Blood Pressure 113/59 L 90/41 L 105/59 L Blood Pressure [Ri ght Arm] Pulse Oximetry 96 99 98 Oxygen Delivery Fl thod Room Air Room Air Room Air Oxygen Flow Rate 02/08/22 15:45 02/08/22 15:50 02/08/22 15:55 Temperature Pulse Rate 79 78 78 Pulse Rate [Left A pical] Respiratory Rate 22 Blood Pressure 108/74 114/52 L 105/58 L Blood Pressure [Ri ght Arm] Pulse Oximetry 100 98 Oxygen Delivery Fl thod Room Air Room Air Room Air Oxygen Flow Rate 02/08/22 16:00 02/08/22 16:13 02/08/22 17:00 Temperature 96.9 F L 97.1 F L Pulse Rate Pulse Rate [Left A pical] 78 83 Respiratory Rate 32 H 32 H 30 H Blood Pressure Blood Pressure [Ri ght Arm] 106/52 L 123/62 Pulse Oximetry 99 100 Oxygen Delivery Me thod Nasal Cannula Nasal Cannula Oxygen Flow Rate 2 2 02/08/22 16:00 02/08/22 17:30 02/08/22 16:15 Temperature 96.8 F L Pulse Rate Pulse Rate [Left A pical] 89 78 Respiratory Rate 30 H 28 H 30 H Blood Pressure Blood Pressure [Ri ght Arm] 112/66 110/59 L Pulse Oximetry 100 100 100 Oxygen Delivery Me thod Nasal Cannula Nasal Cannula Nasal Cannula Oxygen Flow Rate 2 2 3 02/08/22 16:30 02/08/22 16:45 02/08/22 18:00 Temperature 96.3 F L 97 F L Pulse Rate Pulse Rate [Left A pical] 79 78 92 Respiratory Rate 32 H 30 H 28 H Blood Pressure Blood Pressure [Ri ght Arm] 113/40 L 115/68 121/76 Pulse Oximetry 95 95 100 Oxygen Delivery Me thod Nasal Cannula Nasal Cannula Nasal Cannula Oxygen Flow Rate 3 2 1 02/08/22 16:15 02/08/22 19:00 02/08/22 20:00 Temperature 96.9 F L 97.5 F L Pulse Rate 78 Pulse Rate [Left A pical] 94 90 Respiratory Rate 32 H 28 H 26 H Blood Pressure Blood Pressure [Ri ght Arm] 106/52 L 130/76 125/81 Pulse Oximetry 98 96 Oxygen Delivery Me thod Nasal Cannula Nasal Cannula Nasal Cannula Oxygen Flow Rate 2 1 1 02/08/22 21:53 02/08/22 23:00 02/08/22 23:00 Temperature 97.6 F 98.4 F Pulse Rate Pulse Rate [Left A pical] 86 64 93 Respiratory Rate 24 20 20 Blood Pressure Blood Pressure [Ri ght Arm] 99/62 112/70 Pulse Oximetry 97 94 Oxygen Delivery Me thod Nasal Cannula Nasal Cannula Oxygen Flow Rate 1 1 02/09/22 00:00 02/09/22 02:15 02/09/22 08:36 Temperature 98.4 F 97.7 F Pulse Rate Pulse Rate [Left A pical] 98 97 Respiratory Rate 20 20 20 Blood Pressure Blood Pressure [Ri ght Arm] 120/73 117/72 Pulse Oximetry 94 99 99 Oxygen Delivery Me thod Nasal Cannula Nasal Cannula Room Air Oxygen Flow Rate 1 1 02/09/22 08:36 Temperature Pulse Rate Pulse Rate [Left A pical] Respiratory Rate Blood Pressure Blood Pressure [Ri ght Arm] Pulse Oximetry 99 Oxygen Delivery Me thod Room Air Oxygen Flow Rate Progress Note: A&P Assessment and plan (1) SBO (small bowel obstruction): Status: Acute Assessment and Plan: 66-year-old male s/p exploratory laparotomy and revision of ileocolic anastomosis for persistent postoperative small bowel obstruction now POD 1. Will continue keeping NG tube to suction until patient is starting to pass gas. Will continue TPN for now until he is able to tolerate diet. Will remove Koo today. Patient should continue working with therapies. (2) Status post reversal of ileostomy: Problem details: 01/10/2022 Dr. Mays Status: Chronic
[2022-02-09 11:29] LABS: Hematocrit 38.7 % (37.0-53.0); Hemoglobin* 12.7 gm/dL (13.5-17.5); Mean Corpuscular HGB Conc 33 gm/dL (32-36); Mean Corpuscular Hemoglobin 30 pg (26-34); Mean Corpuscular Volume 92 fL (80-100); Platelet Count* 304 K/uL (140-440); Red Blood Count 4.23 m/uL (4.30-5.90); Slide Review Reflex No; White Blood Count* 10.62 K/uL (4.50-11.00)
--- NOTE | 2022-02-09 11:34 | PM.IMPN1 ---
Progress Note: A&P Assessment and plan (1) SBO (small bowel obstruction): Status: Acute Assessment and Plan: 1. Much improved status post exploratory laparotomy yesterday with lysis of adhesions. (2) Open abdominal wall wound: Status: Acute Assessment and Plan: 1. Being managed by General surgery at this time (3) Status post reversal of ileostomy: Problem details: 01/10/2022 Dr. Mays Status: Chronic (4) Status post exploratory laparotomy: Problem details: 02/08/2022 with lysis of adhesions Status: Acute (5) Weakness: Problem details: Likely related to protein calorie malnutrition with baseline underlying physical deconditioning. PICC line in place. TPN running. Status: Acute (6) Physical deconditioning: Status: Acute Assessment and Plan: 1. Continue with physical and occupational therapy support. (7) Parkinson's disease: Problem details: Patient's Parkinson's disease significantly contributes to his mobility. He has not been doing his regular exercises and has not been as active and I think that contributes to his decreased mobility. I recommended to go back to his bicycle exercises starting at 10-15 minutes per day. He should continue walking as much as possible. He should be doing stretching exercises with the arms and legs. I cautioned them to avoid strenuous activity like core exercises and heavy lifting to avoid incisional hernia. Status: Chronic (8) Fatigue: Problem details: Due to Parkinsons and baseline physical deconditioning. Status: Chronic (9) Obstructive sleep apnea treated with continuous positive airway pressure (CPAP): Problem details: Not using CPAP Status: Chronic (10) Achalasia of esophagus: Status: Chronic (11) Low vitamin B12 level: Status: Acute (12) Hyponatremia: Status: Acute (13) Anemia: Status: Acute (14) Protein-calorie malnutrition, severe: Status: Acute Assessment and Plan: 1. In time will advance diet as tolerated. 2. Consider short-term enteral feedings after postop ileus is resolved. Plan 1. Reviewed impression with patient . 2. Answered her questions are satisfaction. 3. Continue to work with General surgery. 4. Ordered new labs today. 5. Continue work with pharmacy for TPN administration. 6. Patient are agreeable. Time Spent With Patient Total time spent: 40 min Subjective Time Seen by Provider: 08:15 Date Seen: 02/09/22 Interval history: Hospital day 7. Remarkably he has no nausea since his exploratory laparotomy yesterday with lysis of adhesions. This is a vast improvement. Heretofore he has hardly tolerated anything by mouth. Interestingly he also notes that he does not have the sense of any sputum stuck in the back of his throat like he had prior to surgery. Overall he indicates he has improved today compared to yesterday. Denies flatus or bowel movement since surgery. Denies nausea or vomiting. Denies chest heaviness, pressure, tightness, or pain. Denies dyspnea at rest, paroxysmal nocturnal dyspnea, orthopnea. Denies syncope or near-syncope. Denies palpitations or fluttering. No fever, rigors, or diaphoresis. Still feels weak. Able to transfer and ambulate with assist of 1, gait belt, and use of his 4 wheeled walker. Exam Narrative: Exam Narrative: Alert, oriented to self, place, time, situation. Articulate, cooperative, friendly. Grateful. Mood and affect are congruent. Appears fatigued and tired. Lungs are clear to auscultation. Heart tones with regular rhythm. Abdomen actually with active bowel sounds. Soft, nontender. I observe him transfer with assist of 1, gait belt, and 4 wheeled walker. I also observed him walking in the halls in a similar fashion. Able to do so slowly. Extremities without edema. Const: Vital Signs, click to edit/add: Vital Signs - 24 hr 02/08/22 15:02 02/08/22 15:05 02/08/22 15:10 Temperature 97.4 F L Pulse Rate 69 68 79 Pulse Rate [Left A pical] Respiratory Rate 16 18 18 Blood Pressure 129/64 115/63 112/64 Blood Pressure [Ri ght Arm] Pulse Oximetry 100 100 100 Oxygen Delivery Me thod Room Air Room Air Room Air Oxygen Flow Rate 02/08/22 15:15 02/08/22 15:20 02/08/22 15:25 Temperature Pulse Rate 79 73 74 Pulse Rate [Left A pical] Respiratory Rate 20 20 16 Blood Pressure 97/84 109/57 L 100/65 Blood Pressure [Ri ght Arm] Pulse Oximetry 100 97 94 Oxygen Delivery Me thod Room Air Room Air Room Air Oxygen Flow Rate 02/08/22 15:30 02/08/22 15:35 02/08/22 15:40 Temperature Pulse Rate 74 73 77 Pulse Rate [Left A pical] Respiratory Rate 20 22 Blood Pressure 113/59 L 90/41 L 105/59 L Blood Pressure [Ri ght Arm] Pulse Oximetry 96 99 98 Oxygen Delivery Me thod Room Air Room Air Room Air Oxygen Flow Rate 02/08/22 15:45 02/08/22 15:50 02/08/22 15:55 Temperature Pulse Rate 79 78 78 Pulse Rate [Left A pical] Respiratory Rate 22 Blood Pressure 108/74 114/52 L 105/58 L Blood Pressure [Ri ght Arm] Pulse Oximetry 100 98 Oxygen Delivery Me thod Room Air Room Air Room Air Oxygen Flow Rate 02/08/22 16:00 02/08/22 16:13 02/08/22 17:00 Temperature 96.9 F L 97.1 F L Pulse Rate Pulse Rate [Left A pical] 78 83 Respiratory Rate 32 H 32 H 30 H Blood Pressure Blood Pressure [Ri ght Arm] 106/52 L 123/62 Pulse Oximetry 99 100 Oxygen Delivery Me thod Nasal Cannula Nasal Cannula Oxygen Flow Rate 2 2 02/08/22 16:00 02/08/22 17:30 02/08/22 16:15 Temperature 96.8 F L Pulse Rate Pulse Rate [Left A pical] 89 78 Respiratory Rate 30 H 28 H 30 H Blood Pressure Blood Pressure [Ri ght Arm] 112/66 110/59 L Pulse Oximetry 100 100 100 Oxygen Delivery Me thod Nasal Cannula Nasal Cannula Nasal Cannula Oxygen Flow Rate 2 2 3 02/08/22 16:30 02/08/22 16:45 02/08/22 18:00 Temperature 96.3 F L 97 F L Pulse Rate Pulse Rate [Left A pical] 79 78 92 Respiratory Rate 32 H 30 H 28 H Blood Pressure Blood Pressure [Ri ght Arm] 113/40 L 115/68 121/76 Pulse Oximetry 95 95 100 Oxygen Delivery Me thod Nasal Cannula Nasal Cannula Nasal Cannula Oxygen Flow Rate 3 2 1 02/08/22 16:15 02/08/22 19:00 02/08/22 20:00 Temperature 96.9 F L 97.5 F L Pulse Rate 78 Pulse Rate [Left A pical] 94 90 Respiratory Rate 32 H 28 H 26 H Blood Pressure Blood Pressure [Ri ght Arm] 106/52 L 130/76 125/81 Pulse Oximetry 98 96 Oxygen Delivery Me thod Nasal Cannula Nasal Cannula Nasal Cannula Oxygen Flow Rate 2 1 1 02/08/22 21:53 02/08/22 23:00 02/08/22 23:00 Temperature 97.6 F 98.4 F Pulse Rate Pulse Rate [Left A pical] 86 64 93 Respiratory Rate 24 20 20 Blood Pressure Blood Pressure [Ri ght Arm] 99/62 112/70 Pulse Oximetry 97 94 Oxygen Delivery Me thod Nasal Cannula Nasal Cannula Oxygen Flow Rate 1 1 02/09/22 00:00 02/09/22 02:15 02/09/22 08:36 Temperature 98.4 F 97.7 F Pulse Rate Pulse Rate [Left A pical] 98 97 Respiratory Rate 20 20 20 Blood Pressure Blood Pressure [Ri ght Arm] 120/73 117/72 Pulse Oximetry 94 99 99 Oxygen Delivery Me thod Nasal Cannula Nasal Cannula Room Air Oxygen Flow Rate 1 1 02/09/22 08:36 02/09/22 11:13 Temperature 98.3 F Pulse Rate Pulse Rate [Left A pical] 101 H Respiratory Rate 18 Blood Pressure Blood Pressure [Ri ght Arm] 109/66 Pulse Oximetry 99 97 Oxygen Delivery Me thod Room Air Room Air Oxygen Flow Rate Labs Labs: Laboratory Results - last 24 hr 02/07/22 02/09/22 02/09/22 06:18 05:52 05:52 WBC 10.62 RBC 4.23 L Hgb 12.7 L Hct 38.7 MCV 92 MCH 30 MCHC 33 Plt Count 304 Magnesium 2.0 Prealbumin 16.0 L
[2022-02-09 11:52] LABS: Albumin* 2.7 g/dL (3.3-5.0); Chloride* 98 mmol/L (96-114)
[2022-02-09 11:53] LABS: Potassium* 4.9 mmol/L (3.6-5.1)
[2022-02-09 11:55] LABS: Bilirubin Total* 0.4 mg/dL (0.1-1.5); Creatinine* 0.7 mg/dL (0.5-1.5); Est. Creatinine Clearance* 70.87; Estimated Glomerular Filt Rate 102 ml/min
[2022-02-09 11:56] LABS: Alanine Aminotransferase* 7 U/L (4-50); Alkaline Phosphatase* 72 U/L (40-150); Aspartate Amino Transferase* 28 U/L (12-35); Blood Urea Nitrogen* 30 mg/dL (7-30); Calcium* 8.3 mg/dL (8.4-10.6); Carbon Dioxide* 27 mmol/L (20-32); Glucose* 172 mg/dL (60-115); Phosphorus* 3.3 mg/dL (2.5-4.5); Total Protein* 5.1 g/dL (6.0-8.3)
[2022-02-09 11:58] LABS: C Reactive Protein* 7.5 mg/dL (0.5-1.0)
[2022-02-09 11:59] LABS: Sodium* 129 mmol/L (135-149)
[2022-02-09] MEDS: SODIUM CHLORIDE 0.9 % (FLUSH) 10 ML SYRINGE 5 ML IVF ×3 (12:01→20:38)
[2022-02-09] MEDS: 0.9 % SODIUM CHLORIDE 1000 ml 1,000 ML IV (13:00)
[2022-02-09] MEDS: HYDROmorphone 0.5 mg/0.5 ml inj IVP ×2 (16:53→20:37)
[2022-02-09] MEDS: AA 5 %/CALCIUM/LYTES/DEXT 20 % 2,000 ML 80 ML IVPB (17:57)
[2022-02-09 18:08] LABS: Prealbumin 16.3 mg/dL (20.0-40.0)
--- NOTE | 2022-02-09 18:40 | PC.NURSE ---
Shift Summary: Patient pleasant and cooperative. Up with one assist, walker and gait belt. Walked in halls x2 today with staff, needed to rest at end of mark in middle of walk. NG output was 300cc, new canister placed at 1500. Carroll cath out 1000, received 1L today, after carroll was out had no output for 6 hours, bladder scan performed and showed 14cc, Dr. Bennett updated with no new orders. Patient voided this evening, appeared dark cami. Denies burning with urination. Abdominal pain well controlled with PRN medication and bowel rest. Ice chips for dry throat/mouth. Bowel sounds present.
[2022-02-09] MEDS: CITALOPRAM HYDROBROMIDE 20 MG TABLET 10 MG PO (20:39)
[2022-02-09] MEDS: PRAVASTATIN 80 MG TABLET 1 EACH PO (20:39)
[2022-02-10] VITALS (9 sets, daily range): BP systolic 113–130; BP diastolic 63–70; PULSE 96–110; RESP 18–20; TEMP 36.7–37.1; O2SAT 96–99
[2022-02-10] MEDS: SODIUM CHLORIDE 0.9 % (FLUSH) 10 ML SYRINGE 5 ML IVF ×4 (00:04→20:33)
[2022-02-10] MEDS: KETOROLAC 30 MG/ML inj IVP ×4 (00:04→20:33)
[2022-02-10] MEDS: HYDROmorphone 0.5 mg/0.5 ml inj IVP (02:13)
[2022-02-10 07:09] LABS: Albumin* 2.6 g/dL (3.3-5.0); Chloride* 101 mmol/L (96-114); Potassium* 4.4 mmol/L (3.6-5.1); Sodium* 133 mmol/L (135-149)
[2022-02-10 07:11] LABS: Bilirubin Total* 0.2 mg/dL (0.1-1.5); Carbon Dioxide* 29 mmol/L (20-32); Creatinine* 0.5 mg/dL (0.5-1.5); Est. Creatinine Clearance* 70.87; Estimated Glomerular Filt Rate 113 ml/min
[2022-02-10 07:12] LABS: Alkaline Phosphatase* 77 U/L (40-150); Aspartate Amino Transferase* 17 U/L (12-35); Blood Urea Nitrogen* 32 mg/dL (7-30); Glucose* 114 mg/dL (60-115); Total Protein* 4.9 g/dL (6.0-8.3); Triglycerides* 84 mg/dL (40-149)
[2022-02-10 07:13] LABS: Calcium* 8.3 mg/dL (8.4-10.6); Phosphorus* 3.1 mg/dL (2.5-4.5)
[2022-02-10 07:15] LABS: Alanine Aminotransferase* < 4 U/L (4-50)
--- NOTE | 2022-02-10 07:25 | PC.NURSE ---
[id number]: Patient cooperative with cares. PICC patent with TPN infusing. Pain rated 4-6/10. PRN Dilaudid and Toradol administered for relief. NG patent and draining brown fluid. Denies passing gas. A2,walker,GB. Weak and moves slowly d/t dyskinesia d/t Parkinson's. Moving markedly slower and weaker than over the weekend. Dressings to R. abdomen and midline incision C/D/I.
--- NOTE | 2022-02-10 10:52 | REH.OT ---
Patient was sleeping when therapy attempted sessions x3. Pt was also drowsy/sleeping with PT. OT will try again tomorrow if pt is more alert.
--- NOTE | 2022-02-10 12:04 | PM.GSPRC ---
Operative Note Date of procedure: 02/08/22 Type of Procedure: 1. Exploratory laparotomy 2. Lysis of adhesions 3. Revision of ileocolic anastomosis Procedure Description: When I came into the operating room Dr. Masy had already opened his midline incision, with an Eliel wound retractor in place. This small bowel was partially eviscerated in she was in the process of lysing intra-abdominal adhesions. Assisted with retraction of the dilated small bowel, well she continued to lyse adhesions sharply with Metzenbaum scissors and with electrocautery. A single dense serosal adhesion was identified adherent to the ileocolic anastomosis. This was taken down sharply. There were multiple attachments on the ascending and transverse colon, which were divided to allow for mobilization and recreation of an ileocolonic anastomosis. I largely assisted with retraction during this portion of the procedure, to assist with visualization. Once the transverse colon and small bowel were completely mobilized we proceeded with our revision of the ileocolic anastomosis. The colonic mesentery leading up to the anastomosis was divided with clamps and Vicryl ties.? The small bowel mesentery leading to the anastomosis was also divided with clamps and ties.? The proximal transverse colon was then divided with blue load of AZUCENA stapler.? The distal ileum was also divided with a blue load of AZUCENA stapler.? The old ileocolic anastomosis was then passed off the field and sent to pathology.? We then proceeded to create a [id number] functional end-to-end ileocolic anastomosis. Dr. Mays made an enterotomy on each and approximately 1 cm away from the staple line and along the anti mesenteric border. When the lumen of the small bowel was entered thin green liquid was able to be suctioned, to allow for partial decompression of the dilated small bowel. The stapler was then placed into each arm of the small bowel and colon. A [id number] anastomosis was created. As the stapler was removed the staple line was examined within hemostasis being excellent. The common enterotomy was then closed with interrupted Lembert 3-0 silk sutures. A crotch stitch was placed with 3-0 silk suture. The mesenteric defect was closed with a running 3-0 Vicryl suture. The anastomosis and small intestine were placed back into the abdomen. Omentum was placed over the anastomosis. The abdomen was irrigated with warm normal saline. The anterior fascia of the incision was closed with 2 running 0 Maxon sutures. At this portion of the procedure I left the operating room Dr. Bhandari continued with closure. Please see her operative report for full details. Findings: Multiple intra-abdominal adhesions. Ileocolic anastomosis revision. Anesthesia: GETA Surgeon: Verona Mays MD Co-Surgeon: Lauren Moise MD. 1st assist Estimated blood loss (mL): 20 Condition: stable Disposition: PACU
--- NOTE | 2022-02-10 12:09 | PM.GSPN ---
Subjective Subjective Date Seen: 02/10/22 Interval history: Patient is doing well. His pain is controlled with pain medication. He walked 3 times yesterday. He denies any nausea. He denies passing gas. Exam Narrative: Exam Narrative: Abdomen: Soft, not distended, tender to palpation right lower quadrant and epigastrium, surgical incision is healing well with no erythema. Right paramedian incision is with packing in place. Const: Vital Signs, click to edit/add: Vital Signs - 24 hr 02/09/22 15:57 02/09/22 16:02 02/09/22 19:00 Temperature 97.9 F 97.8 F Pulse Rate [Left A pical] 98 100 Respiratory Rate 18 18 Blood Pressure [Ri ght Arm] 117/63 130/68 Pulse Oximetry 99 99 99 Oxygen Delivery Me thod Room Air Room Air Room Air 02/10/22 00:00 02/09/22 23:00 02/10/22 03:00 Temperature 98.0 F 98.1 F Pulse Rate [Left A pical] 104 H 106 H Respiratory Rate 18 18 18 Blood Pressure [Ri ght Arm] 133/75 113/69 Pulse Oximetry 97 97 96 Oxygen Delivery Me thod Room Air Room Air Room Air 02/10/22 07:00 02/10/22 07:00 02/10/22 08:00 Temperature 98.0 F Pulse Rate [Left A pical] 101 H 101 H Respiratory Rate 20 20 Blood Pressure [Ri ght Arm] 128/70 Pulse Oximetry 98 98 Oxygen Delivery Me thod Room Air Room Air Progress Note: A&P Assessment and plan (1) Status post exploratory laparotomy: Status: Acute Assessment and Plan: 66-year-old male s/p exploratory laparotomy and revision of ileocolic anastomosis POD 2. Patient had some episodes of tachycardia yesterday and his heart rate today is in low 100s. His urine output is decreased. His tachycardia is most likely related to volume depletion due to his recent surgery. However will check hemoglobin. His abdomen is not distended so I think it is unlikely that he has acute postoperative bleed. Patient's albumin was also low in the last 2 checks which compared to the albumin preoperatively that was normal. I suspect this could be also dilutional. We will give him albumin and fluid bolus. Will continue with NG tube to suction. Patient is not passing gas so will wait for return of bowel function. I discussed with the patient that 1 of my partners will be seeing him over the weekend.
[2022-02-10] MEDS: ALBUMIN HUMAN 25% 100 ML VIAL IV (13:09)
[2022-02-10 13:20] LABS: Basophils Percent Auto 0.2 % (0.0-3.0); Eosinophils Percent Auto 0.7 % (0.0-7.0); Hematocrit 33.5 % (37.0-53.0); Hemoglobin* 10.9 gm/dL (13.5-17.5); Immature Granulocytes Abs Auto 0.04 K/uL (0.00-0.30); Lymphocytes Percent Auto 8.1 % (20-44); Mean Corpuscular HGB Conc 33 gm/dL (32-36); Mean Corpuscular Hemoglobin 30 pg (26-34); Mean Corpuscular Volume 93 fL (80-100); Monocytes Percent Auto 8.3 % (0.0-11.0); Neutrophils Percent Auto 82.4 % (42.0-72.0); Platelet Count* 317 K/uL (140-440); RDW Coefficient of Variation % 13.8 % (11.5-15.5); Red Blood Count 3.62 m/uL (4.30-5.90); White Blood Count* 12.23 K/uL (4.50-11.00)
[2022-02-10 13:37] LABS: Slide Review Reflex No
[2022-02-10] MEDS: 0.9 % SODIUM CHLORIDE 500 ML 500 ML IV (14:02)
--- NOTE | 2022-02-10 15:45 | PM.IMPN1 ---
Progress Note: A&P Assessment and plan (1) Status post exploratory laparotomy: Problem details: 02/08/2022 Status: Acute Assessment and Plan: 1. Diet is being advanced by General surgery. (2) Status post reversal of ileostomy: Problem details: 01/10/2022 Dr. Mays Status: Chronic (3) Protein-calorie malnutrition, severe: Status: Acute Assessment and Plan: 1. Continue on TPN for now. Continue to monitor labs. (4) Physical deconditioning: Status: Acute Assessment and Plan: 1. Acute on chronic. 2. Continue to work with nursing staff and others for continued efforts to stabilize. 3. Will likely need transitional care services when ready to be discharged from hospital. representative phlebotomy services assisting with discharge disposition planning in this regard. (5) Parkinson's disease: Problem details: Patient's Parkinson's disease significantly contributes to his mobility. He has not been doing his regular exercises and has not been as active and I think that contributes to his decreased mobility. I recommended to go back to his bicycle exercises starting at 10-15 minutes per day. He should continue walking as much as possible. He should be doing stretching exercises with the arms and legs. I cautioned them to avoid strenuous activity like core exercises and heavy lifting to avoid incisional hernia. Status: Chronic Assessment and Plan: 1. Continue with efforts to medically manage. (6) Fatigue: Problem details: Due to Parkinsons and baseline physical deconditioning. Status: Chronic (7) Obstructive sleep apnea treated with continuous positive airway pressure (CPAP): Problem details: Not using CPAP Status: Chronic (8) Anemia: Status: Acute (9) Hyponatremia: Status: Acute Assessment and Plan: 1. Continue with efforts to address with TPN and monitoring. (10) Weakness: Problem details: Likely related to protein calorie malnutrition with baseline underlying physical deconditioning. PICC line in place. TPN running. Status: Acute (11) Open abdominal wall wound: Status: Acute Assessment and Plan: 1. Being managed by General surgery. (12) Achalasia of esophagus: Status: Chronic (13) Gastroesophageal reflux disease: Problem details: EGD with dilation in the past Status: Acute (14) Low vitamin B12 level: Status: Acute Plan 1. Reviewed impression and plans with patient. 2. Two answered patient's questions to satisfaction. 3. Patient agreeable to above stated plans and recommendations Time Spent With Patient Total time spent: 40 minutes Subjective Time Seen by Provider: 09:00 Date Seen: 02/10/22 Interval history: Hospital day 8. Notes that he continues to have no nausea since his exploratory laparotomy with lysis of adhesions 2 days ago. This is a significant improvement. Heretofore he was not tolerating anything by mouth. Overall he indicates he has improved today compared to yesterday. Denies flatus or bowel movement since surgery. Denies nausea or vomiting. Denies chest heaviness, pressure, tightness, or pain. Denies dyspnea at rest, paroxysmal nocturnal dyspnea, orthopnea. Denies syncope or near-syncope. Denies palpitations or fluttering. No fever, rigors, or diaphoresis. Still feels weak. Able to transfer and ambulate with standby assist of 1, gait belt, and use of his 4 wheeled walker. Exam Narrative: Exam Narrative: No acute distress. Appears comfortable. Thin with cachectic appearance. NG tube still in place. Still receiving TPN. More spontaneous and interactive today. Talkative, articulate, cooperative, friendly. Mood and affect are congruent. Alert, oriented to self, place, time, situation. Lungs clear to auscultation. Heart tones with regular rhythm, normal S1-S2. Abdomen with active bowel sounds. With standby assist and gait belt, he is able to transfer and ambulate with use of roller walker. Extremities with trace edema pretibially bilaterally. No focal motor neurologic deficits. Skin is warm, dry, and intact. Const: Vital Signs, click to edit/add: Vital Signs - 24 hr 02/09/22 15:57 02/09/22 16:02 02/09/22 19:00 Temperature 97.9 F 97.8 F Pulse Rate [Left A pical] 98 100 Respiratory Rate 18 18 Blood Pressure [Ri ght Arm] 117/63 130/68 Pulse Oximetry 99 99 99 Oxygen Delivery Me thod Room Air Room Air Room Air 02/10/22 00:00 02/09/22 23:00 02/10/22 03:00 Temperature 98.0 F 98.1 F Pulse Rate [Left A pical] 104 H 106 H Respiratory Rate 18 18 18 Blood Pressure [Ri ght Arm] 133/75 113/69 Pulse Oximetry 97 97 96 Oxygen Delivery Me thod Room Air Room Air Room Air 02/10/22 07:00 02/10/22 07:00 02/10/22 08:00 Temperature 98.0 F Pulse Rate [Left A pical] 101 H 101 H Respiratory Rate 20 20 Blood Pressure [Ri ght Arm] 128/70 Pulse Oximetry 98 98 Oxygen Delivery Me thod Room Air Room Air 02/10/22 11:00 Temperature 98.7 F Pulse Rate [Left A pical] 99 Respiratory Rate 20 Blood Pressure [Ri ght Arm] 116/67 Pulse Oximetry 99 Oxygen Delivery Me thod Room Air Documenting provider has reviewed patient's vital signs: yes Labs Labs: Laboratory Results - last 24 hr 02/08/22 02/10/22 02/10/22 10:40 06:15 06:15 WBC 12.23 H RBC 3.62 L Hgb 10.9 L Hct 33.5 L MCV 93 MCH 30 MCHC 33 RDW Coeff of Latoya 13.8 Plt Count 317 Neut % (Auto) 82.4 H Lymph % (Auto) 8.1 L [place] % (Auto) 8.3 Eos % (Auto) 0.7 Baso % (Auto) 0.2 Neut # (Auto) 10.10 H Lymph # (Auto) 1.00 [place] # (Auto) 1.00 H Eos # (Auto) 0.10 Baso # (Auto) 0.00 Abs Immat Gran (auto) 0.04 Sodium 133 L Potassium 4.4 Chloride 101 Carbon Dioxide 29 BUN 32 H Creatinine 0.5 Estimated Creat Clear 70.87 Estimated GFR 113 Glucose 114 Calcium 8.3 L Phosphorus 3.1 Magnesium 2.0 Total Bilirubin 0.2 AST 17 ALT < 4 L Alkaline Phosphatase 77 Total Protein 4.9 L Albumin 2.6 L Prealbumin 16.3 L Triglycerides 84
[2022-02-10] MEDS: AA 5 %/CALCIUM/LYTES/DEXT 20 % 2,000 ML 80 ML IVPB (18:28)
--- NOTE | 2022-02-10 19:26 | PC.NURSE ---
Pt up walking in [place] x2 on shift with SBA, gait belt, and 4 wheel walker. Encouraged to continue walks going forward. Bowels active, pt denies passing gas. Rates medial abdominal pain 2-6, Toradol per MAR given with relief. Takedown incision wet-to-dry dressing complete and covered with gauze and tape. Dr. Jessica Mays removed ABD dressing to medial incision which is stapled closed and open to air. NG patent and draining. Pt encouraged to reposition often for safety of skin integrity. Pt buttock pink but blanchable. Mepilex not applied at this time but discussed with pt and JAMAL Bowers/night nurse.
[2022-02-10] MEDS: FAMOTIDINE 20 MG TABLET PO (20:32)
[2022-02-10] MEDS: CITALOPRAM HYDROBROMIDE 20 MG TABLET 10 MG PO (20:32)
[2022-02-10] MEDS: PRAVASTATIN 80 MG TABLET 1 EACH PO (20:34)
[2022-02-11] VITALS (9 sets, daily range): BP systolic 121–145; BP diastolic 70–85; PULSE 89–104; RESP 18–20; TEMP 36.5–37.2; O2SAT 96–98
[2022-02-11] MEDS: KETOROLAC 30 MG/ML inj IVP ×2 (02:45→21:23)
[2022-02-11] MEDS: SODIUM CHLORIDE 0.9 % (FLUSH) 10 ML SYRINGE 5 ML IVF ×4 (02:45→21:26)
--- NOTE | 2022-02-11 05:43 | PC.NURSE ---
[id number]: Patient pleasant and cooperative. NG to LIS patent. Denies passing gas. BS active. Dressing to R. abdomen C/D/I, midline incision stapled and RAMÓN. PICC patent and infusing TPN. Patient walked halls x1 with A1,4ww,GB. Tolerated fair. Abdomen pain controlled with PRN Toradol. Patient educated on importance of frequent repositioning to preserve skin integrity. Patient agreeable to frequent repositioning but prefers back and R. lateral laying. Did not tolerate L. lateral positioning. Patient's dyskinesia symptoms increasing during hospital stay.
[2022-02-11 07:38] LABS: Basophils Absolute Auto 0.02 K/uL (0.00-0.30); Basophils Percent Auto 0.2 % (0.0-3.0); Eosinophils Absolute Auto 0.12 K/uL (0.00-0.50); Eosinophils Percent Auto 1.4 % (0.0-7.0); Hematocrit 30.4 % (37.0-53.0); Hemoglobin* 10.1 gm/dL (13.5-17.5); Immature Granulocytes Abs Auto 0.02 K/uL (0.00-0.30); Lymphocytes Percent Auto 8.6 % (20-44); Mean Corpuscular HGB Conc 33 gm/dL (32-36); Mean Corpuscular Hemoglobin 30 pg (26-34); Mean Corpuscular Volume 91 fL (80-100); Monocytes Percent Auto 6.4 % (0.0-11.0); Neutrophils Percent Auto 83.2 % (42.0-72.0); Platelet Count* 330 K/uL (140-440); RDW Coefficient of Variation % 13.6 % (11.5-15.5); Red Blood Count 3.34 m/uL (4.30-5.90); White Blood Count* 8.85 K/uL (4.50-11.00)
[2022-02-11 07:42] LABS: Lactate* 0.6 mmol/L (0.5-1.9); Slide Review Reflex No
[2022-02-11 07:58] LABS: Albumin* 2.6 g/dL (3.3-5.0); Chloride* 100 mmol/L (96-114); Potassium* 4.5 mmol/L (3.6-5.1); Sodium* 135 mmol/L (135-149)
[2022-02-11 08:01] LABS: Carbon Dioxide* 29 mmol/L (20-32); Creatinine* 0.5 mg/dL (0.5-1.5); Est. Creatinine Clearance* 70.87; Estimated Glomerular Filt Rate 113 ml/min; Magnesium* 2.1 mg/dL (1.5-2.6)
[2022-02-11 08:02] LABS: Blood Urea Nitrogen* 24 mg/dL (7-30); Calcium* 8.3 mg/dL (8.4-10.6); Glucose* 112 mg/dL (60-115)
[2022-02-11 08:16] LABS: C Reactive Protein* 14.7 mg/dL (0.5-1.0)
[2022-02-11] MEDS: FAMOTIDINE 20 MG TABLET PO ×2 (09:08→21:23)
--- NOTE | 2022-02-11 10:37 | PM.GSPN ---
Subjective Subjective Date Seen: 02/11/22 Interval history: Patient is doing ?okay? this morning. He did take a walk in the [place] earlier this morning and feels very fatigued. His expresses concern regarding his significant weakness during this hospital stay. He denies any appetite at this time. He has not yet passed gas. NG tube remains in place with patient reporting no nausea. Denies any fevers or chills. Abdominal distention has improved since his last surgery. Exam Narrative: Exam Narrative: General: Alert and oriented, no acute distress. HEENT: NG tube in right nares. Overall decreased output within canister, fluid is more clear per and appears bile tinged. Abdomen: Appropriately tender over incision site. Nondistended and soft. Midline incision with anni in place. There are 2 areas of redness on the superior aspect and near the umbilicus, these were outlined. Chronic wound on the right side of the abdomen with dressings taking down. Wound bed with healthy granulation tissue, no evidence of any significant fibrinous exudate. No surrounding cellulitis or induration. Const: Vital Signs, click to edit/add: Vital Signs - 24 hr 02/10/22 11:00 02/10/22 15:00 02/10/22 16:00 Temperature 98.7 F 98.3 F Pulse Rate [Left A pical] 99 105 H Pulse Rate [orthos tatic lying] Pulse Rate [orthos tatic sitting] Pulse Rate [orthos tatic standing] Respiratory Rate 20 20 Blood Pressure [Ri ght Arm] 116/67 122/70 Blood Pressure [or thostatic lying] Blood Pressure [or thostatic sitting] Blood Pressure [or thostatic standing ] Pulse Oximetry 99 98 98 Oxygen Delivery Me thod Room Air Room Air Room Air Oxygen Flow Rate 02/10/22 19:00 02/11/22 00:00 02/10/22 23:00 Temperature 98.6 F 98.2 F Pulse Rate [Left A pical] 110 H 96 Pulse Rate [orthos tatic lying] Pulse Rate [orthos tatic sitting] Pulse Rate [orthos tatic standing] Respiratory Rate 20 18 18 Blood Pressure [Ri ght Arm] 121/63 130/64 Blood Pressure [or thostatic lying] Blood Pressure [or thostatic sitting] Blood Pressure [or thostatic standing ] Pulse Oximetry 98 96 96 Oxygen Delivery Me thod Room Air Room Air Room Air Oxygen Flow Rate 02/11/22 03:00 02/11/22 05:26 02/11/22 07:00 Temperature 98.9 F 97.7 F Pulse Rate [Left A pical] 96 94 Pulse Rate [orthos tatic lying] 96 Pulse Rate [orthos tatic sitting] 104 H Pulse Rate [orthos tatic standing] 98 Respiratory Rate 20 20 Blood Pressure [Ri ght Arm] 129/72 121/72 Blood Pressure [or thostatic lying] 129/72 Blood Pressure [or thostatic sitting] 138/78 Blood Pressure [or thostatic standing ] 128/70 Pulse Oximetry 97 98 Oxygen Delivery Me thod Room Air Room Air Oxygen Flow Rate 1 02/11/22 08:00 Temperature Pulse Rate [Left A pical] Pulse Rate [orthos tatic lying] Pulse Rate [orthos tatic sitting] Pulse Rate [orthos tatic standing] Respiratory Rate 20 Blood Pressure [Ri ght Arm] Blood Pressure [or thostatic lying] Blood Pressure [or thostatic sitting] Blood Pressure [or thostatic standing ] Pulse Oximetry 98 Oxygen Delivery Me thod Room Air Oxygen Flow Rate 1 Labs/Imaging Labs Labs: Morning labs reviewed. Hemoglobin is stable. Albumin remains low at 2.6. Imaging Imaging: No new imaging. Progress Note: A&P Assessment and plan (1) Status post exploratory laparotomy: Problem details: 02/08/2022 Status: Acute Assessment and Plan: 66-year-old male s/p exploratory laparotomy and revision of ileocolic anastomosis POD 3. Vital signs stable overnight. No other episodes of tachycardia. Hemoglobin this morning 10.1 from 10.9, this is likely secondary to dilution from an increase in his fluids with no concern for any ongoing bleeding. He continues with TPN for nutrition. His NG tube output is lightening in color and decreasing in output, which is encouraging. Will continue with NG tube to low intermittent suction at this time and maintain NPO status while awaiting bowel function. -continue TPN, okay for sips and ice chips -NG tube to low intermittent suction -TPN and IV fluid management per hospitalist -encourage ambulation -SCDs, Lovenox for DVT prophylaxis -IV pain meds as needed, use sparingly Appreciate the hospitalist continuing to follow to help with managed comorbidities.
[2022-02-11 12:16] LABS: Albumin* 2.6 g/dL (3.3-5.0)
[2022-02-11 12:17] LABS: Chloride* 101 mmol/L (96-114); Potassium* 4.6 mmol/L (3.6-5.1); Sodium* 134 mmol/L (135-149)
[2022-02-11 12:19] LABS: Bilirubin Total* 0.6 mg/dL (0.1-1.5); Carbon Dioxide* 28 mmol/L (20-32); Creatinine* 0.5 mg/dL (0.5-1.5); Est. Creatinine Clearance* 70.87; Estimated Glomerular Filt Rate 113 ml/min
[2022-02-11 12:20] LABS: Alanine Aminotransferase* 8 U/L (4-50); Alkaline Phosphatase* 84 U/L (40-150); Aspartate Amino Transferase* 92 U/L (12-35); Blood Urea Nitrogen* 24 mg/dL (7-30); Calcium* 8.3 mg/dL (8.4-10.6); Glucose* 110 mg/dL (60-115); Phosphorus* 4.1 mg/dL (2.5-4.5); Total Protein* 5.2 g/dL (6.0-8.3)
--- NOTE | 2022-02-11 14:36 | PC.NURSE ---
Patient condition is improving as V/S are recorded within normal limit throughout the shift. Patient continuous on NPO, blood glucose at 12pm was 136 and no insulin given per sliding scale. Dressing to the right lower quadrant changed, no offensive discharges noted. Wound base appears reddish with few necrotic areas. Therapist was with patient to offer physical activities.NG tube is patent and draining brownish gastric content. Both PICC and peripheral IV line are patent. Patient do not like to be turned and reposition but prefer lying supine and occasionally getting out of bed for physical activities and walk to and from bathroom. Denied break through pain but confirmed pain has been around 3/10 and therefore no PRN pain medication given.
[2022-02-11] MEDS: ENOXAPARIN 40 MG/0.4 ML INJ SUBCUT (15:23)
[2022-02-11] MEDS: HYDROmorphone 0.5 mg/0.5 ml inj IVP (16:01)
--- NOTE | 2022-02-11 16:21 | PM.IMPN1 ---
Progress Note: A&P Assessment and plan (1) Status post exploratory laparotomy: Problem details: 02/08/2022 Status: Acute (2) SBO (small bowel obstruction): Status: Acute (3) Postoperative ileus: Status: Acute (4) Protein-calorie malnutrition, severe: Status: Acute (5) Physical deconditioning: Status: Acute (6) Open abdominal wall wound: Status: Acute (7) Weakness: Problem details: Likely related to protein calorie malnutrition with baseline underlying physical deconditioning. PICC line in place. TPN running. Status: Acute (8) Status post reversal of ileostomy: Problem details: 01/10/2022 Dr. Mays Status: Chronic (9) Constipated: Status: Acute (10) Parkinson's disease: Problem details: Patient's Parkinson's disease significantly contributes to his mobility. He has not been doing his regular exercises and has not been as active and I think that contributes to his decreased mobility. I recommended to go back to his bicycle exercises starting at 10-15 minutes per day. He should continue walking as much as possible. He should be doing stretching exercises with the arms and legs. I cautioned them to avoid strenuous activity like core exercises and heavy lifting to avoid incisional hernia. Status: Chronic (11) Depression: Status: Acute (12) Anemia: Status: Acute (13) Low vitamin B12 level: Status: Acute (14) Gastroesophageal reflux disease: Problem details: EGD with dilation in the past Status: Acute (15) Achalasia of esophagus: Status: Chronic (16) Fatigue: Problem details: Due to Parkinsons and baseline physical deconditioning. Status: Chronic Plan 1. Reviewed my impressions with the patient and . 2. Answered their questions are satisfaction. 3. Recommended we increase his antidepressant regimen. They asked me to contact his neurologist at [facility]. Also able to reach him via telephone. Neurologist agreed with plan to increase citalopram from 10 mg once daily to 20 mg once daily. 4. Continue with TPN and labs to monitor. 5. Continue with physical and occupational therapy support efforts. 6. Will continue to follow with General surgery. Time Spent With Patient Total time spent: 60 minutes, including time spent to contact and discuss patient's condition with his neurologist. Subjective Time Seen by Provider: 09:30 Date Seen: 02/11/22 Interval history: 66-year-old man, status post exploratory laparotomy with lysis of adhesions on 02/08/2022. Still no flatus. He states he can feel it developing. Fortunately still has no nausea. Has incisional abdominal discomfort only. Tolerating increased activities. Still has NG tube in. Acknowledges a sense of depressed mood. Denies anxiety. Denies suicidal thoughts or ideations. Hoping his physical condition will turn the corner soon. Denies chest heaviness, pressure, tightness, or pain. Denies dyspnea at rest, paroxysmal nocturnal dyspnea, orthopnea. Denies orthostasis, syncope, near syncope. Exam Narrative: Exam Narrative: No acute distress. Cooperative and friendly. Somber but hopeful disposition. Alert, oriented to self, place, time, situation. Lungs clear to auscultation. Heart tones with regular rhythm. Abdomen with active bowel sounds. Mild erythema around abdominal incision site. Douglas in place. Superficial incisional wound right side of abdomen, stable. Extremities without edema. Ambulates with standby assist and use of gait belt. Slow gait, broad-based station. Uses walker with ambulation. Skin is warm, dry, intact. No focal motor neurologic deficits. Const: Vital Signs, click to edit/add: Vital Signs - 24 hr 02/10/22 19:00 02/11/22 00:00 02/10/22 23:00 Temperature 98.6 F 98.2 F Pulse Rate [Left A pical] 110 H 96 Pulse Rate [orthos tatic lying] Pulse Rate [orthos tatic sitting] Pulse Rate [orthos tatic standing] Respiratory Rate 20 18 18 Blood Pressure [Ri ght Arm] 121/63 130/64 Blood Pressure [or thostatic lying] Blood Pressure [or thostatic sitting] Blood Pressure [or thostatic standing ] Pulse Oximetry 98 96 96 Oxygen Delivery Me thod Room Air Room Air Room Air Oxygen Flow Rate 02/11/22 03:00 02/11/22 05:26 02/11/22 07:00 Temperature 98.9 F 97.7 F Pulse Rate [Left A pical] 96 94 Pulse Rate [orthos tatic lying] 96 Pulse Rate [orthos tatic sitting] 104 H Pulse Rate [orthos tatic standing] 98 Respiratory Rate 20 20 Blood Pressure [Ri ght Arm] 129/72 121/72 Blood Pressure [or thostatic lying] 129/72 Blood Pressure [or thostatic sitting] 138/78 Blood Pressure [or thostatic standing ] 128/70 Pulse Oximetry 97 98 Oxygen Delivery Me thod Room Air Room Air Oxygen Flow Rate 1 02/11/22 08:00 02/11/22 11:00 02/11/22 15:00 Temperature 97.7 F Pulse Rate [Left A pical] 98 98 Pulse Rate [orthos tatic lying] Pulse Rate [orthos tatic sitting] Pulse Rate [orthos tatic standing] Respiratory Rate 20 20 20 Blood Pressure [Ri ght Arm] 144/85 H Blood Pressure [or thostatic lying] Blood Pressure [or thostatic sitting] Blood Pressure [or thostatic standing ] Pulse Oximetry 98 98 Oxygen Delivery Me thod Room Air Room Air Oxygen Flow Rate 1 1 02/11/22 15:00 Temperature 97.9 F Pulse Rate [Left A pical] 89 Pulse Rate [orthos tatic lying] Pulse Rate [orthos tatic sitting] Pulse Rate [orthos tatic standing] Respiratory Rate 20 Blood Pressure [Ri ght Arm] 141/77 H Blood Pressure [or thostatic lying] Blood Pressure [or thostatic sitting] Blood Pressure [or thostatic standing ] Pulse Oximetry 98 Oxygen Delivery Me thod Room Air Oxygen Flow Rate Documenting provider has reviewed patient's vital signs: yes Labs Labs: Laboratory Results - last 24 hr 02/11/22 02/11/22 02/11/22 06:45 06:45 06:45 WBC 8.85 RBC 3.34 L Hgb 10.1 L Hct 30.4 L MCV 91 MCH 30 MCHC 33 RDW Coeff of Latoya 13.6 Plt Count 330 Neut % (Auto) 83.2 H Lymph % (Auto) 8.6 L [place] % (Auto) 6.4 Eos % (Auto) 1.4 Baso % (Auto) 0.2 Neut # (Auto) 7.40 H Lymph # (Auto) 0.80 L [place] # (Auto) 0.60 Eos # (Auto) 0.12 Baso # (Auto) 0.02 Abs Immat Gran (auto) 0.02 Sodium 134 L Potassium 4.6 Chloride 101 Carbon Dioxide 28 BUN 24 Creatinine 0.5 Estimated Creat Clear 70.87 Estimated GFR 113 Glucose 110 Lactate Calcium 8.3 L Phosphorus 4.1 Magnesium 2.1 Total Bilirubin 0.6 AST 92 H ALT 8 Alkaline Phosphatase 84 C-Reactive Protein 14.7 H Total Protein 5.2 L Albumin 2.6 L 02/11/22 02/11/22 06:45 06:45 WBC RBC Hgb Hct MCV MCH MCHC RDW Coeff of Latoya Plt Count Neut % (Auto) Lymph % (Auto) [place] % (Auto) Eos % (Auto) Baso % (Auto) Neut # (Auto) Lymph # (Auto) [place] # (Auto) Eos # (Auto) Baso # (Auto) Abs Immat Gran (auto) Sodium 135 Potassium 4.5 Chloride 100 Carbon Dioxide 29 BUN 24 Creatinine 0.5 Estimated Creat Clear 70.87 Estimated GFR 113 Glucose 112 Lactate 0.6 Calcium 8.3 L Phosphorus 4.0 Magnesium Total Bilirubin AST ALT Alkaline Phosphatase C-Reactive Protein Total Protein Albumin 2.6 L
[2022-02-11] MEDS: AA 5 %/CALCIUM/LYTES/DEXT 20 % 2,000 ML 80 ML IVPB (18:26)
[2022-02-11] MEDS: CITALOPRAM HYDROBROMIDE 20 MG TABLET PO (21:24)
[2022-02-11] MEDS: PRAVASTATIN 80 MG TABLET 1 EACH PO (21:25)
--- NOTE | 2022-02-11 22:32 | PC.NURSE ---
Shift note: The pt has been pleasant and cooperative. The pt has been reporting mild to moderate abdominal pain; pain has been managed with PRN pain medication. The abdominal mid incision intact with anni ; diffused redness noted at the site; The Surgeon aware of . Right lower abdominal dressing C/D/I. NG tube to R nare at 65 cm - low intermittent suction ; greenish abdominal substance noted in the suction canister. The suction has had been off for about 30 minutes when giving PO medications. The pt has been denying nausea and denied passing flatus; no abdominal distension noted. The pt has been reporting hiccups on and off.
[2022-02-12] VITALS (9 sets, daily range): BP systolic 121–139; BP diastolic 74–92; PULSE 86–94; RESP 16–18; TEMP 36.4–37.1; O2SAT 95–99
--- NOTE | 2022-02-12 06:54 | PC.NURSE ---
Shift note: No c/o pain overnight, voiding, does not pass gas
[2022-02-12 06:56] LABS: Magnesium* 2.1 mg/dL (1.5-2.6)
[2022-02-12] MEDS: FAMOTIDINE 20 MG TABLET PO ×2 (08:02→20:58)
[2022-02-12] MEDS: KETOROLAC 30 MG/ML inj IVP ×3 (08:15→19:51)
[2022-02-12 09:27] LABS: Chloride* 99 mmol/L (96-114)
[2022-02-12 09:28] LABS: Albumin* 2.6 g/dL (3.3-5.0); Sodium* 133 mmol/L (135-149)
[2022-02-12 09:30] LABS: Bilirubin Total* 0.4 mg/dL (0.1-1.5); Carbon Dioxide* 28 mmol/L (20-32); Creatinine* 0.5 mg/dL (0.5-1.5); Est. Creatinine Clearance* 70.87; Estimated Glomerular Filt Rate 113 ml/min
[2022-02-12 09:31] LABS: Alanine Aminotransferase* 14 U/L (4-50); Alkaline Phosphatase* 138 U/L (40-150); Aspartate Amino Transferase* 96 U/L (12-35); Blood Urea Nitrogen* 25 mg/dL (7-30); Glucose* 140 mg/dL (60-115); Total Protein* 5.3 g/dL (6.0-8.3)
[2022-02-12 09:32] LABS: Calcium* 8.1 mg/dL (8.4-10.6)
[2022-02-12] MEDS: ENOXAPARIN 40 MG/0.4 ML INJ SUBCUT (13:47)
--- NOTE | 2022-02-12 13:49 | PM.IMPN1 ---
Progress Note: A&P Assessment and plan (1) Status post exploratory laparotomy: Problem details: 02/08/2022 Status: Acute (2) SBO (small bowel obstruction): Status: Acute (3) Postoperative ileus: Status: Acute (4) Protein-calorie malnutrition, severe: Status: Acute (5) Physical deconditioning: Status: Acute (6) Open abdominal wall wound: Status: Acute (7) Weakness: Problem details: Likely related to protein calorie malnutrition with baseline underlying physical deconditioning. PICC line in place. TPN running. Status: Acute (8) Status post reversal of ileostomy: Problem details: 01/10/2022 Dr. Mays Status: Chronic (9) Constipated: Status: Acute (10) Parkinson's disease: Problem details: Patient's Parkinson's disease significantly contributes to his mobility. He has not been doing his regular exercises and has not been as active and I think that contributes to his decreased mobility. I recommended to go back to his bicycle exercises starting at 10-15 minutes per day. He should continue walking as much as possible. He should be doing stretching exercises with the arms and legs. I cautioned them to avoid strenuous activity like core exercises and heavy lifting to avoid incisional hernia. Status: Chronic (11) Depression: Status: Acute (12) Anemia: Status: Acute (13) Low vitamin B12 level: Status: Acute (14) Gastroesophageal reflux disease: Problem details: EGD with dilation in the past Status: Acute (15) Achalasia of esophagus: Status: Chronic (16) Fatigue: Problem details: Due to Parkinsons and baseline physical deconditioning. Status: Chronic Plan 1. Reviewed impressions with patient. 2. Answered his questions. 3. Continue with our supportive efforts, including TPN. 4. Will continue to follow with General surgery, awaiting postop ileus to resolve. 5. Continue with efforts to encourage movement. Time Spent With Patient Total time spent: 45 minutes Subjective Time Seen by Provider: 10:00 Date Seen: 02/12/22 Interval history: 66-year-old man, postoperative day number 3 status post exploratory laparotomy with lysis of adhesions on 02/08/2022. Still no flatus. He states he can feel it developing. Fortunately still has no nausea. Has incisional abdominal discomfort only. Tolerating increased activities. Still has NG tube in. Acknowledges a sense of depressed mood. Denies anxiety. Denies suicidal thoughts or ideations. Hoping his physical condition will turn the corner soon. He appreciates the support he is getting from family and nursing staff. Denies chest heaviness, pressure, tightness, or pain. Denies dyspnea at rest, paroxysmal nocturnal dyspnea, orthopnea. Denies orthostasis, syncope, near syncope. Exam Narrative: Exam Narrative: NG tube in place. Appears comfortable. No acute distress. Appears tired. Still receiving TPN. Lungs clear to auscultation. Heart tones with regular rhythm. Abdomen with hypoactive bowel sounds. Not distended. Extremities without edema. Ambulates with standby assist and use of walker. Const: Vital Signs, click to edit/add: Vital Signs - 24 hr 02/11/22 15:00 02/11/22 15:00 02/11/22 16:00 Temperature 97.9 F Pulse Rate [Left A pical] 98 89 Respiratory Rate 20 20 20 Blood Pressure [Ri ght Arm] 141/77 H Pulse Oximetry 98 97 Oxygen Delivery Me thod Room Air Room Air Oxygen Flow Rate 1 02/11/22 19:45 02/12/22 00:05 02/12/22 00:00 Temperature 98.1 F 97.9 F Pulse Rate [Left A pical] 102 H 93 Respiratory Rate 20 18 Blood Pressure [Ri ght Arm] 145/76 H 134/85 Pulse Oximetry 96 96 96 Oxygen Delivery Me thod Room Air Room Air Room Air Oxygen Flow Rate 02/12/22 04:00 02/12/22 08:00 02/12/22 08:00 Temperature 97.9 F 97.5 F L Pulse Rate [Left A pical] 86 94 Respiratory Rate 18 18 18 Blood Pressure [Ri ght Arm] 139/74 Pulse Oximetry 96 96 96 Oxygen Delivery Me thod Room Air Room Air Room Air Oxygen Flow Rate 02/12/22 08:00 02/12/22 12:00 Temperature 98.1 F Pulse Rate [Left A pical] 94 87 Respiratory Rate 18 18 Blood Pressure [Ri ght Arm] 129/74 Pulse Oximetry 97 Oxygen Delivery Me thod Room Air Oxygen Flow Rate 1 Documenting provider has reviewed patient's vital signs: yes Labs Labs: Laboratory Results - last 24 hr 02/12/22 02/12/22 06:20 06:25 Sodium 133 L Potassium 4.0 Chloride 99 Carbon Dioxide 28 BUN 25 Creatinine 0.5 Estimated Creat Clear 70.87 Estimated GFR 113 Glucose 140 H Calcium 8.1 L Phosphorus 4.0 Magnesium 2.1 Total Bilirubin 0.4 AST 96 H ALT 14 Alkaline Phosphatase 138 Total Protein 5.3 L Albumin 2.6 L
[2022-02-12] MEDS: HYDROmorphone 0.5 mg/0.5 ml inj IVP (14:30)
--- NOTE | 2022-02-12 14:32 | P.GSPN_ITS ---
Subjective Subjective Date Seen: 02/12/22 Interval history: Patient still has a significant amount of fatigue. He does feel like he is getting closer to passing gas, but has not yet passed gas. He does report an increase in his hiccups today. Denies any nausea or emesis. However reported fevers or chills. Exam Narrative: Exam Narrative: General: Alert and oriented, nontoxic. HEENT: Thicker bilious output from NG tube which is in right nares Abdominal: Redness has extended beyond the outlined area. Induration and erythema concerning for underlying infection. A few anni were removed just inferior and superior to the umbilicus with expulsion of a moderate amount of purulence. The underlying fascia was palpated and appeared intact. The resulting wound was irrigated with normal saline. Packing of Vashe soaked half- inch packing tape at the inferior and superior aspect were placed. Chronic wound to the right abdomen was evaluated. Healthy granulation tissue within wound bed. No concern for infection. Const: Vital Signs, click to edit/add: Vital Signs - 24 hr 02/11/22 15:00 02/11/22 15:00 02/11/22 16:00 Temperature 97.9 F Pulse Rate [Left A pical] 98 89 Respiratory Rate 20 20 20 Blood Pressure [Ri ght Arm] 141/77 H Pulse Oximetry 98 97 Oxygen Delivery Me thod Room Air Room Air Oxygen Flow Rate 1 02/11/22 19:45 02/12/22 00:05 02/12/22 00:00 Temperature 98.1 F 97.9 F Pulse Rate [Left A pical] 102 H 93 Respiratory Rate 20 18 Blood Pressure [Ri ght Arm] 145/76 H 134/85 Pulse Oximetry 96 96 96 Oxygen Delivery Me thod Room Air Room Air Room Air Oxygen Flow Rate 02/12/22 04:00 02/12/22 08:00 02/12/22 08:00 Temperature 97.9 F 97.5 F L Pulse Rate [Left A pical] 86 94 Respiratory Rate 18 18 18 Blood Pressure [Ri ght Arm] 139/74 Pulse Oximetry 96 96 96 Oxygen Delivery Me thod Room Air Room Air Room Air Oxygen Flow Rate 02/12/22 08:00 02/12/22 12:00 Temperature 98.1 F Pulse Rate [Left A pical] 94 87 Respiratory Rate 18 18 Blood Pressure [Ri ght Arm] 129/74 Pulse Oximetry 97 Oxygen Delivery Me thod Room Air Oxygen Flow Rate 1 Labs/Imaging Labs Labs: No leukocytosis. A few min continues to be low at 2.6 Progress Note: A&P Assessment and plan (1) Status post exploratory laparotomy: Problem details: 02/08/2022 Status: Acute Assessment and Plan: 66-year-old male s/p exploratory laparotomy and revision of ileocolic anastomosis POD 4. Vital signs stable overnight. Adequate urinary output. Worsening redness of the midline incision on today's exam. A few anni were removed with a moderate amount of purulence confirming superficial surgical site infection. Underlying fascia does appear to be intact at this time. The wound was irrigated and packed. Will plan to start IV antibiotics. Still awaiting return of bowel function. His NG tube output has been stable in in amount, thicker output today and not yet passing gas. -continue TPN, okay for sips and ice chips -NG tube to low intermittent suction -TPN and IV fluid management per hospitalist -IV Ancef. -midline incision wound packing in place, will plan to change tomorrow at bedside. After 1st change will continue with b.i.d. wet-to-dry dressing changes. -encourage ambulation -SCDs, Lovenox for DVT prophylaxis -IV pain meds as needed, use sparingly Appreciate the hospitalist continuing to follow to help with managed comorbidities.
[2022-02-12] MEDS: CEFAZOLIN 1 GM in 0.9 % SODIUM CHLORIDE Mini-bag 100 ML IVPB ×2 (14:55→23:07)
--- NOTE | 2022-02-12 15:25 | PC.NURSE ---
VSS AND AFEBRILE. BS ACTIVE BUT PATIENT DENIES PASSING GAS. DENIES N/V. NG TUBE TO LIS. ABDOMINAL PAIN CONTROLLED WITH TORADOL THIS AM. PATIENT'S INCISION RAMÓN BUT REDNESS SPREADING OUTSIDE OF OUTLINE DONE YESTERDAY. DR. SAGASTUME DRAINED INCISION THIS AFTERNOON AND DRAINAGE WAS PURULENT AND FOUL SMELLING. DR. SAGASTUME PACKED WOUND AND COVERED WITH DRESSING AND WILL CHANGE DRESSING TOMORROW MORNING. PATIENT RECEIVED DILAUDID FOR PAIN FROM DRESSING CHANGE AND IS CURRENTLY SLEEPING.
[2022-02-12] MEDS: AA 5 %/CALCIUM/LYTES/DEXT 20 % 2,000 ML 80 ML IVPB (18:23)
[2022-02-12] MEDS: PRAVASTATIN 80 MG TABLET 1 EACH PO (20:59)
[2022-02-12] MEDS: CITALOPRAM HYDROBROMIDE 20 MG TABLET PO (21:02)
[2022-02-12] MEDS: SODIUM CHLORIDE 0.9 % (FLUSH) 10 ML SYRINGE 5 ML IVF (21:07)
[2022-02-13] MEDS: KETOROLAC 30 MG/ML inj IVP (00:58)
[2022-02-13 02:40] VITALS: BP 130/78; PULSE 90; RESP 16; TEMP 36.9; O2SAT 96
[2022-02-13] MEDS: CEFAZOLIN 1 GM in 0.9 % SODIUM CHLORIDE Mini-bag 100 ML IVPB ×3 (06:55→23:56)
[2022-02-13 07:15] LABS: Magnesium* 2.2 mg/dL (1.5-2.6)
[2022-02-13 07:45] VITALS: BP 145/82; PULSE 94; RESP 16; TEMP 36.9; O2SAT 97
[2022-02-13 08:00] VITALS: O2SAT 97
[2022-02-13] MEDS: FAMOTIDINE 20 MG TABLET PO ×2 (08:57→21:18)
[2022-02-13] MEDS: HYDROmorphone 0.5 mg/0.5 ml inj IVP ×3 (09:02→19:37)
[2022-02-13 09:34] LABS: Sodium* 131 mmol/L (135-149)
--- NOTE | 2022-02-13 10:21 | P.GSPN_ITS ---
Subjective Subjective Date Seen: 02/13/22 Interval history: Patient states that he is feeling ?punky this morning?. He is sitting up in the recliner and watching TV. He did have some increasing abdominal pain, with a lot of this morning. Last night he started to pass gas and had a small bowel movement. He states that since that 1 he had another small bowel movement of liquid. He denies any nausea or vomiting. He had very minimal output from his NG tube (less than 75 mL). No reported fevers or chills. Exam Narrative: Exam Narrative: General: Alert and oriented, no acute distress. Sitting comfortably in a chair. HEENT: NG tube remains in place and right nares and is currently clamped. Respiratory: Equal breath rise bilaterally, maintained on room air CV: Regular rhythm rate, well perfused Abdomen: Nondistended and soft, appropriately tender over incision sites. Dressings were removed at bedside. Moderate amount of purulence within dressings. The midline incision was irrigated with normal saline and repacked with half-inch packing tape soaked in Dakins solution. Decreased erythema and induration surrounding midline incision. Chronic wound on right side of abdomen with granulation tissue within wound bed, a stitches visible at the base of the wound. No concern for infection to this area. Const: Vital Signs, click to edit/add: Vital Signs - 24 hr 02/12/22 12:00 02/12/22 15:30 02/12/22 16:00 Temperature 98.1 F 97.7 F Pulse Rate [Left A pical] 87 90 Respiratory Rate 18 16 Blood Pressure [Ri ght Arm] 129/74 121/92 H Pulse Oximetry 97 95 Oxygen Delivery Me thod Room Air Room Air Room Air Oxygen Flow Rate 1 02/12/22 19:00 02/12/22 23:00 02/12/22 23:00 Temperature 98.8 F 98.3 F Pulse Rate [Left A pical] 90 87 87 Respiratory Rate 16 16 16 Blood Pressure [Ri ght Arm] 132/81 135/81 Pulse Oximetry 99 97 Oxygen Delivery Me thod Room Air Room Air Oxygen Flow Rate 02/12/22 23:35 02/13/22 02:40 Temperature 98.5 F Pulse Rate [Left A pical] 90 Respiratory Rate 16 16 Blood Pressure [Ri ght Arm] 130/78 Pulse Oximetry 97 96 Oxygen Delivery Me thod Room Air Room Air Oxygen Flow Rate Progress Note: A&P Assessment and plan (1) Status post exploratory laparotomy: Status: Acute Assessment and Plan: 66-year-old male s/p exploratory laparotomy and revision of ileocolic anastomosis POD 5. Vital signs stable overnight. Wound packing was changed at bedside, there continues to be a moderate amount of purulent material. The midline incision was irrigated and the area repacked. Overall the surrounding erythema induration has improved, with patient remaining afebrile. Evidence of return of bowel function with 2 small bowel movements and passage of gas. He has had a decrease in his NG tube output is well. Will do a 6 hour clamping trial today and start some clear liquids. Nursing was instructed for NG tube to remain clamped until 3:00 p.m., at which time it will be hooked back up to suction and the amount of output evaluated. If the output is less than 200 mL will plan for NG tube removal and continue the clear liquids. If patient complains at any point of increasing abdominal pain, increased abdominal dist ention or nausea please look the NG tube back up to low intermittent suction. -continue TPN, okay clear liquids -NG tube clamped, 6 our trial -TPN and IV fluid management per hospitalist -IV Ancef. -midline incision wound packing in place, b.i.d. wet-to-dry dressing changes -encourage ambulation -SCDs, Lovenox for DVT prophylaxis -IV pain meds as needed, use sparingly Appreciate the hospitalist continuing to follow to help with managed comorbidities.
[2022-02-13 11:00] VITALS: BP 143/80; PULSE 91; RESP 18; TEMP 36.9; O2SAT 98
[2022-02-13] MEDS: ENOXAPARIN 40 MG/0.4 ML INJ SUBCUT (14:28)
--- NOTE | 2022-02-13 14:52 | PM.IMPN1 ---
Progress Note: A&P Assessment and plan (1) Postoperative ileus: Status: Acute (2) Physical deconditioning: Status: Acute (3) Status post exploratory laparotomy: Status: Acute (4) Protein-calorie malnutrition, severe: Status: Acute (5) Open abdominal wall wound: Status: Acute (6) Superficial incisional infection of surgical site: Status: Acute (7) Weakness: Problem details: Likely related to protein calorie malnutrition with baseline underlying physical deconditioning. PICC line in place. TPN running. Status: Acute (8) Dysphagia: Status: Chronic (9) Hyponatremia: Status: Acute (10) Anemia: Status: Acute (11) Low vitamin B12 level: Status: Acute (12) Gastroesophageal reflux disease: Problem details: EGD with dilation in the past Status: Acute (13) Dyslipidemia: Status: Chronic (14) Vitamin D deficiency: Status: Chronic (15) Depression: Status: Acute (16) Obstructive sleep apnea treated with continuous positive airway pressure (CPAP): Problem details: Not using CPAP Status: Chronic (17) Parkinson's disease: Problem details: Patient's Parkinson's disease significantly contributes to his mobility. He has not been doing his regular exercises and has not been as active and I think that contributes to his decreased mobility. I recommended to go back to his bicycle exercises starting at 10-15 minutes per day. He should continue walking as much as possible. He should be doing stretching exercises with the arms and legs. I cautioned them to avoid strenuous activity like core exercises and heavy lifting to avoid incisional hernia. Status: Chronic (18) Fatigue: Problem details: Due to Parkinsons and baseline physical deconditioning. Status: Chronic Plan 1. Continue with wound cares as presently instituted 2. Surgery will advance his diet as tolerated 3. Continue with efforts to mobilize the patient as much as possible 4. Will need to continue to monitor surgical wound site very closely 5. Answered his questions to satisfaction. 6. Patient agreeable to allowing is to continue to help and support him in this manner at this time. Time Spent With Patient Total time spent: 30 minutes Subjective Time Seen by Provider: 09:30 Date Seen: 02/13/22 Interval history: Hospital day 12. Postoperative day 5, status post exploratory laparotomy and takedown of adhesions. Mornings are usually harder for him to start moving. Such is his disposition this morning. Otherwise generally feels well. Passed some flatus and stool last night and this morning. Denies nausea or vomiting. Tolerating increased activities. Still weak. Exam Narrative: Exam Narrative: No acute distress. Moves slowly with gait belt and assist of 1 and use of his walker. Talkative, cooperative. Hard to understand him at times. Mood and affect are congruent. Alert, oriented to self, place, time, situation. Lungs clear to auscultation. Heart tones with regular rhythm. Abdomen with active bowel sounds. Erythema around incision site of the abdomen is much improved. Trace edema pretibially bilaterally. Moves slowly with use of walker and very short strides. This is his usual gait. Const: Vital Signs, click to edit/add: Vital Signs - 24 hr 02/12/22 15:30 02/12/22 16:00 02/12/22 19:00 Temperature 97.7 F 98.8 F Pulse Rate [Left A pical] 90 90 Respiratory Rate 16 16 Blood Pressure [Ri ght Arm] 121/92 H 132/81 Pulse Oximetry 95 99 Oxygen Delivery Me thod Room Air Room Air Room Air 02/12/22 23:00 02/12/22 23:00 02/12/22 23:35 Temperature 98.3 F Pulse Rate [Left A pical] 87 87 Respiratory Rate 16 16 16 Blood Pressure [Ri ght Arm] 135/81 Pulse Oximetry 97 97 [facility] 02/13/22 02:40 02/13/22 07:45 02/13/22 08:00 Temperature 98.5 F 98.4 F Pulse Rate [Left A pical] 90 94 Respiratory Rate 16 16 Blood Pressure [Ri ght Arm] 130/78 145/82 H Pulse Oximetry 96 97 97 Oxygen Delivery De thod Room Air Room Air Room Air 02/13/22 11:00 Temperature 98.5 F Pulse Rate [Left A pical] 91 Respiratory Rate 18 Blood Pressure [Ri ght Arm] 143/80 H Pulse Oximetry 98 Oxygen Delivery De thod Room Air Labs Labs: Laboratory Results - last 24 hr 02/13/22 06:10 Sodium 131 L Magnesium 2.2
[2022-02-13 15:00] VITALS: BP 147/83; PULSE 91; RESP 18; RESP 20; TEMP 37.1; O2SAT 96
--- NOTE | 2022-02-13 17:37 | PC.NURSE ---
shift note: pt medicated x2 for 6-12/29 abd incision burning with relief. BS tinny x4. placement verified by gasto test. NG @ 70 cm. Nasal anchor replaced x2. LS clr. pt using IS to 500. Pt up to recliner this a.m for approx 2 hours. Drsg to abd changed by Dr. Moise. Redness to left of vertical incision. NG clamped 09 to 1500. pt abd slightly distended and firm when ng clamped. NG output when hooked to LIS 55cc of green/brown returns. IV patent to lt Fa. PICC line intact.
[2022-02-13] MEDS: AA 5 %/CALCIUM/LYTES/DEXT 20 % 2,000 ML 80 ML IVPB (18:37)
[2022-02-13] MEDS: SODIUM CHLORIDE 0.9 % (FLUSH) 10 ML SYRINGE 5 ML IVF ×2 (19:45→23:51)
[2022-02-13 19:52] VITALS: BP 138/82; PULSE 93; RESP 20; TEMP 36.8; O2SAT 96
[2022-02-13] MEDS: CITALOPRAM HYDROBROMIDE 20 MG TABLET PO (21:18)
[2022-02-13] MEDS: PRAVASTATIN 80 MG TABLET 1 EACH PO (21:19)
--- NOTE | 2022-02-13 22:37 | PM.GSPN ---
Subjective Subjective Date Seen: 02/13/22 Interval history: I met with the patient this evening following his NG tube clamping trial. He denies any associated nausea or vomiting, but does report that his abdomen became more distended and painful. He has not passed any further gas or had any more bowel movements since the wound reported early this morning. He has been hiccuping throughout the day. Exam Narrative: Exam Narrative: Abdomen: Moderate distention, soft. Dressings were changed at bedside. There continues to be a moderate amount of foul-smelling drainage on the dressings. The wound was gently irrigated and repacked. The underlying fascia appears intact. The associated erythema is slightly worse compared to this morning. Const: Vital Signs, click to edit/add: Vital Signs - 24 hr 02/12/22 23:00 02/12/22 23:00 02/12/22 23:35 Temperature 98.3 F Pulse Rate [Left A pical] 87 87 Respiratory Rate 16 16 16 Blood Pressure [Ri ght Arm] 135/81 Pulse Oximetry 97 97 Oxygen Delivery Me thod Room Air Room Air 02/13/22 02:40 02/13/22 07:45 02/13/22 08:00 Temperature 98.5 F 98.4 F Pulse Rate [Left A pical] 90 94 Respiratory Rate 16 16 Blood Pressure [Ri ght Arm] 130/78 145/82 H Pulse Oximetry 96 97 97 Oxygen Delivery Me thod Room Air Room Air Room Air 02/13/22 11:00 02/13/22 15:00 02/13/22 15:00 Temperature 98.5 F 98.7 F Pulse Rate [Left A pical] 91 91 91 Respiratory Rate 18 18 20 Blood Pressure [Ri ght Arm] 143/80 H 147/83 H Pulse Oximetry 98 96 Oxygen Delivery Me thod Room Air Room Air 02/13/22 16:00 02/13/22 19:52 Temperature 98.3 F Pulse Rate [Left A pical] 93 Respiratory Rate 20 Blood Pressure [Ri ght Arm] 138/82 Pulse Oximetry 96 Oxygen Delivery Me thod Room Air Room Air Progress Note: A&P Assessment and plan (1) Status post exploratory laparotomy: Status: Acute Assessment and Plan: Patient has failed his clamping trial with increased abdominal distention and pain. I am also concerned given his increasing hiccups throughout the day that he continues to have a postoperative ileus. Will continue with the NG tube to low intermittent suction overnight. Additionally, his dressing was changed at bedside and there was noted increased erythema. At this time he does appear to be open and adequately draining. He continues to be on IV antibiotics. Vital signs stable and he has been afebrile. Will continue to watch this closely and continue with b.i.d. dressing changes. He may need more anni removed tomorrow if the erythema continues to worsen.
[2022-02-14] VITALS (8 sets, daily range): BP systolic 115–139; BP diastolic 70–87; PULSE 83–92; RESP 16–20; TEMP 36.6–36.9; O2SAT 92–98
[2022-02-14] MEDS: 0.9 % SODIUM CHLORIDE 250 ml IV (01:32)
[2022-02-14] MEDS: SODIUM CHLORIDE 0.9 % (FLUSH) 10 ML SYRINGE 5 ML IVF ×4 (02:37→19:32)
[2022-02-14] MEDS: HYDROmorphone 0.5 mg/0.5 ml inj IVP ×5 (02:37→19:33)
--- NOTE | 2022-02-14 04:44 | PC.NURSE ---
Addendum entered by Alexey Ellis RN 02/14/22 04:48: Denies flatus, bowels active. Original Note: : Pt had his drsg changed last night by Jose Maria, tolerated well with dilaudid prior, has needed pain med a few times for sharp pain, but no increased distention or nausea, ng has been LIS with only 50cc output over 12 hours while taking in ice chips and sips with meds
[2022-02-14 06:47] LABS: Hemoglobin* 10.6 gm/dL (13.5-17.5); Mean Corpuscular HGB Conc 33 gm/dL (32-36); Mean Corpuscular Hemoglobin 30 pg (26-34); Mean Corpuscular Volume 91 fL (80-100); Platelet Count* 413 K/uL (140-440); Red Blood Count 3.52 m/uL (4.30-5.90); White Blood Count* 9.08 K/uL (4.50-11.00)
[2022-02-14 06:50] LABS: Chloride* 97 mmol/L (96-114)
[2022-02-14 06:51] LABS: Albumin* 2.8 g/dL (3.3-5.0); Potassium* 4.5 mmol/L (3.6-5.1); Slide Review Reflex No; Sodium* 129 mmol/L (135-149)
[2022-02-14 06:53] LABS: Creatinine* 0.5 mg/dL (0.5-1.5); Est. Creatinine Clearance* 70.87; Estimated Glomerular Filt Rate 113 ml/min
[2022-02-14 06:54] LABS: Blood Urea Nitrogen* 22 mg/dL (7-30); Calcium* 8.1 mg/dL (8.4-10.6); Carbon Dioxide* 27 mmol/L (20-32); Glucose* 141 mg/dL (60-115)
[2022-02-14 06:57] LABS: C Reactive Protein* 7.1 mg/dL (0.5-1.0)
[2022-02-14] MEDS: CEFAZOLIN 1 GM in 0.9 % SODIUM CHLORIDE Mini-bag 100 ML IVPB (07:24)
--- NOTE | 2022-02-14 09:05 | NUTR.NU ---
Nutrition Follow-up: Patient admitted with SBO, requiring TPN. TPN increased to goal 02/07/22. Since TPN increase, patient's labs have been stable (phosphate, potassium, magnesium, sodium, glucose, BUN, etc.). Current TPN rate: 80 mL/hr x 24 hours with lipids 3x per week, provides 1920 mL fluid, 1900 kcals (28 kcals/kg), and 96 grams protein (1.4 g/kg) to meet estimated energy needs. No new weight since 02/08/22: 150 lbs, Weight has been stable. 73.5 inches; BMI is normal at 19.5 kg/m2. NPO diet, ok for sips and chips per MD order. Waiting for bowel function to return before advancing diet. No changes in nutrition interventions at this time. RDN will continue to monitor and provide recommendations as needed.
[2022-02-14] MEDS: FAMOTIDINE 20 MG TABLET PO ×2 (09:06→21:25)
[2022-02-14] MEDS: BENZOCAINE/MENTHOL 1 EACH LOZENGE MUCOUS MEM (09:06)
[2022-02-14] MEDS: PIPERACILLIN/TAZOBACTAM 3.375 GM in 0.9 % SODIUM CHLORIDE Mini-bag 100 ML IVPB ×3 (10:20→21:23)
--- NOTE | 2022-02-14 10:23 | PM.GSPN ---
Subjective Subjective Date Seen: 02/14/22 Interval history: Patient's NG tube put out minimal amounts of fluid since yesterday. He denies nausea. He does pass some gas and had a small bowel movement. There was a concern of patient's abdomen being more distended yesterday when his NG tube was clamped. The NG tube was placed again to suction. Patient is complaining of difficulty walking. He feels that his walking has regressed. He did some exercising on his bike. Exam Narrative: Exam Narrative: Abdomen: Soft, not distended, not tender to palpation, midline laparotomy incision with intact anni. The 2 areas that were opened were repacked with 0.5 in Nu Gauze. There is slight erythema at the superior most portion of the midline incision. This was marked today. The left family median open wound was repacked with moist Nu Gauze. All incisions were covered with gauze and tape. Const: Vital Signs, click to edit/add: Vital Signs - 24 hr 02/13/22 11:00 02/13/22 15:00 02/13/22 15:00 Temperature 98.5 F 98.7 F Pulse Rate [Left A pical] 91 91 91 Respiratory Rate 18 18 20 Blood Pressure [Ri ght Arm] 143/80 H 147/83 H Pulse Oximetry 98 96 Oxygen Delivery Ny thod Room Air Room Air 02/13/22 16:00 02/13/22 19:52 02/14/22 00:09 Temperature 98.3 F 97.8 F Pulse Rate [Left A pical] 93 90 Respiratory Rate 20 18 Blood Pressure [Ri ght Arm] 138/82 133/78 Pulse Oximetry 96 94 Oxygen Delivery Ny thod Room Air Room Air Room Air 02/14/22 00:17 02/14/22 00:18 02/14/22 02:42 Temperature 98.2 F Pulse Rate [Left A pical] 90 83 Respiratory Rate 18 20 Blood Pressure [Ri ght Arm] 138/79 Pulse Oximetry 92 Oxygen Delivery Ny thod Room Air Room Air 02/14/22 08:00 02/14/22 08:00 Temperature 98.0 F Pulse Rate [Left A pical] 92 Respiratory Rate 20 20 Blood Pressure [Ri ght Arm] 139/87 Pulse Oximetry 95 95 Oxygen Delivery Ny thod Room Air Room Air Progress Note: A&P Assessment and plan (1) Superficial incisional infection of surgical site: Problem details: Patient's WBC was normal today. However, I will switch patient's Ancef to Zosyn to broaden the coverage to include Gram-negative coverage. Patient has 2 areas of her was incision that were opened and will continue with wet to dry dressing changes. The incision was covered with gauze and tape. We will avoid Tegaderm. There is another area that I am watching at the superior portion of the incision. The right paramedian open wound was repacked with wet to dry. We will bring Hydrofera blue and do packing to the right paramedian incision with Hydrofera blue next time. Status: Acute (2) Status post exploratory laparotomy: Problem details: 66-year-old male s/p exploratory laparotomy and revision of ileocolic anastomosis POD 6. We will clamp patient's NG tube. He can have sips of clears but will leave the NG tube in place just in case he does not tolerated. For now we will continue TPN until patient is able to tolerate regular diet. Patient's decreased mobility is most likely related to his debilitation in light of his Parkinson's disease. His Parkinson's disease medication might not be absorbed well due to ileus. We will continue working with therapies and walking. The plan eventually will be for the patient to go to subacute rehab. Status: Acute
[2022-02-14] MEDS: ENOXAPARIN 40 MG/0.4 ML INJ SUBCUT (14:03)
--- NOTE | 2022-02-14 16:45 | PM.IMPN1 ---
Progress Note: A&P Assessment and plan (1) SBO (small bowel obstruction): Problem details: Resolved Status: Acute (2) Status post exploratory laparotomy: Problem details: 66-year-old male s/p exploratory laparotomy and revision of ileocolic anastomosis POD 6. We will clamp patient's NG tube. He can have sips of clears but will leave the NG tube in place just in case he does not tolerated. For now we will continue TPN until patient is able to tolerate regular diet. Patient's decreased mobility is most likely related to his debilitation in light of his Parkinson's disease. His Parkinson's disease medication might not be absorbed well due to ileus. We will continue working with therapies and walking. The plan eventually will be for the patient to go to subacute rehab. Status: Acute (3) Protein-calorie malnutrition, severe: Problem details: On TPN. Status: Acute (4) Postoperative ileus: Status: Acute (5) Superficial incisional infection of surgical site: Problem details: Patient's WBC was normal today. However, I will switch patient's Ancef to Zosyn to broaden the coverage to include Gram-negative coverage. Patient has 2 areas of her was incision that were opened and will continue with wet to dry dressing changes. The incision was covered with gauze and tape. We will avoid Tegaderm. There is another area that I am watching at the superior portion of the incision. The right paramedian open wound was repacked with wet to dry. We will bring Hydrofera blue and do packing to the right paramedian incision with Hydrofera blue next time. Status: Acute (6) Weakness: Problem details: Likely related to protein calorie malnutrition with baseline underlying physical deconditioning. PICC line in place. TPN running. Status: Acute (7) Anemia: Status: Acute Assessment and Plan: Monitor. (8) Hyponatremia: Status: Acute Assessment and Plan: Monitor and adjust TPN accordingly. (9) Low vitamin B12 level: Status: Acute (10) Parkinson's disease: Problem details: Patient's Parkinson's disease significantly contributes to his mobility. He has not been doing his regular exercises and has not been as active and I think that contributes to his decreased mobility. I recommended to go back to his bicycle exercises starting at 10-15 minutes per day. He should continue walking as much as possible. He should be doing stretching exercises with the arms and legs. I cautioned them to avoid strenuous activity like core exercises and heavy lifting to avoid incisional hernia. Status: Chronic Plan 1. Reviewed with patient and . 2. Answered their questions. 3. Continue with TPN. 4. Patient agreeable. 5. Continue with efforts to increase mobility. Time Spent With Patient Total time spent: 30 minutes Subjective Time Seen by Provider: 09:00 Date Seen: 02/14/22 Interval history: Hospital day 13. Postoperative day 6, status post exploratory laparotomy and takedown of adhesions. Mornings are usually harder for him to start moving.? Such is his disposition this morning.? Otherwise generally feels well. Has not passed flatus or stool yet today. NG tube has been clamped. Since the NG tube was clamped he started having hiccups. Tolerating clear liquids.? Denies nausea or vomiting.? Tolerating increased activities.? Still weak. Exam Narrative: Exam Narrative: Friendly, cooperative. Appears tired. Articulate, insightful. Mood and affect are congruent. Alert, oriented to self, place, time, situation. Lungs are clear to auscultation. Heart tones with regular rhythm. NG tube in place, clamped. Abdominal wall less erythematous than when I last looked at it. Extremities with trace edema pretibially bilaterally. Festinating gait of Parkinson's, stable for him. No new focal motor neurologic deficits. Const: Vital Signs, click to edit/add: Vital Signs - 24 hr 02/13/22 19:52 02/14/22 00:09 02/14/22 00:17 Temperature 98.3 F 97.8 F Pulse Rate [Left A pical] 93 90 Respiratory Rate 20 18 Blood Pressure [Ri ght Arm] 138/82 133/78 Pulse Oximetry 96 94 Oxygen Delivery Me thod Room Air Room Air Room Air Fraction of Inspir ed Oxygen 02/14/22 00:18 02/14/22 02:42 02/14/22 08:00 Temperature 98.2 F Pulse Rate [Left A pical] 90 83 Respiratory Rate 18 20 20 Blood Pressure [Ri ght Arm] 138/79 Pulse Oximetry 92 95 Oxygen Delivery Me thod Room Air Room Air Fraction of Inspir ed Oxygen 02/14/22 08:00 02/14/22 12:00 02/14/22 16:00 Temperature 98.0 F 98.0 F Pulse Rate [Left A pical] 92 91 Respiratory Rate 20 18 18 Blood Pressure [Ri t Arm] 139/87 115/70 Pulse Oximetry 95 96 98 Oxygen Delivery Me thod Room Air Room Air Room Air Fraction of Inspir ed Oxygen 16 02/14/22 16:00 Temperature 97.8 F Pulse Rate [Left A pical] 92 Respiratory Rate 16 Blood Pressure [[facility] Arm] 125/80 Pulse Oximetry 98 Oxygen Delivery Me thod Room Air Fraction of Inspir ed Oxygen Documenting provider has reviewed patient's vital signs: yes Labs Labs: Laboratory Results - last 24 hr 02/14/22 02/14/22 06:32 06:32 WBC 9.08 RBC 3.52 L Hgb 10.6 L Hct 32.0 L MCV 91 MCH 30 MCHC 33 Plt Count 413 Sodium 129 L Potassium 4.5 Chloride 97 Carbon Dioxide 27 BUN 22 Creatinine 0.5 Estimated Creat Clear 70.87 Estimated GFR 113 Glucose 141 H Calcium 8.1 L Phosphorus 4.0 C-Reactive Protein 7.1 H Albumin 2.8 L
--- NOTE | 2022-02-14 17:38 | PC.NURSE ---
SHIFT REPORT: PATIENT PLEASANT AND COOPERATIVE WITH STAFFING, VERY RESISTIVE TO GETTING OUT OF BED THIS MORNING, I JUST WANT TO NAP, PATIENT EDUCATED ON THE IMPORTANCE OF MOVING/WALKING AROUND WITH STAFFING, VERBALIZED UNDERSTANDING AND UP X2 THUS FAR, TODAYS GOAL IS TO BE UP X3 FOR WHICH PATIENT IS AWARE OF AND HAD VERBALIZED UNDERSTANDING, RATING PAIN 2-4/10 IN ABDOMEN BEING MANAGED WITH PRN DILAUDID, ABDOMINAL DRESSINGS CHANGED WITH MORNING VIA MD, SOME REDNESS TO MEDICAL ABDOMINAL INCISION OUTLINED BY MD, HICCUPS OFF AND ON THROUGH SHIFT, PER PATIENT NOT INTENSE THEY HAVE BEEN, NG CLAMPED SINCE THIS MORNING FOR WHICH PATIENT HAS TOLERATED, HAS BEEN ABLE TO TOLERATE WATER THUS FAR TODAY, IS TO 500, UPDATED AT BEDSIDE AND VERY SUPPORTIVE, PICC PATENT TO RIGHT UPPER ARM.
[2022-02-14] MEDS: AA 5 %/CALCIUM/LYTES/DEXT 20 % 2,000 ML 80 ML IVPB (18:14)
[2022-02-14] MEDS: PRAVASTATIN 80 MG TABLET 1 EACH PO (21:25)
[2022-02-14] MEDS: CITALOPRAM HYDROBROMIDE 20 MG TABLET PO (21:36)
--- NOTE | 2022-02-14 21:39 | PC.NURSE ---
19-23: Midline incsion wounds x2 were changed, noted green drainage/odor, replaced with one 1/2 string gauze in each site, no worsening redness noted, moderate distention but no discomfort or nausea, ng remains clamped, denies flatus, bowels active. pt stated surgeon only wanted the ruq wound changed daily and it was changed, outside drsg dry intact. Attempted to ambulate to door but only made it to br door and had to sit down, stated his mobility after sinimet takes 1.5 hrs to improve, thus encouraged him to attempt again one more time tonight.
[2022-02-14] MEDS: ACETAMINOPHEN 325 MG TABLET PO (23:51)
[2022-02-14] MEDS: MELATONIN 3 MG TABLET PO (23:51)
[2022-02-15] VITALS (7 sets, daily range): BP systolic 108–127; BP diastolic 64–80; PULSE 80–92; RESP 18–20; TEMP 36.3–36.8; O2SAT 95–99
[2022-02-15] MEDS: HYDROmorphone 0.5 mg/0.5 ml inj IVP ×3 (02:51→20:26)
[2022-02-15] MEDS: PIPERACILLIN/TAZOBACTAM 3.375 GM in 0.9 % SODIUM CHLORIDE Mini-bag 100 ML IVPB ×4 (02:52→21:57)
--- NOTE | 2022-02-15 06:19 | PC.NURSE ---
pt pleasant and cooperative. c/o abd pain, see eMar. Pt is hiccupping frequently, pt expressed increased pain with hiccups.?Passing gas, no Bm. Bowel tones active. Dressing to abd incisions CDI. NG tube clamped, no c/o nausea.
[2022-02-15 08:01] LABS: Sodium* 130 mmol/L (135-149)
[2022-02-15] MEDS: FAMOTIDINE 20 MG TABLET PO ×2 (08:04→21:51)
[2022-02-15] MEDS: SODIUM CHLORIDE 0.9 % (FLUSH) 10 ML SYRINGE 5 ML IVF ×6 (08:05→21:57)
--- NOTE | 2022-02-15 08:46 | PM.GSPN ---
Subjective Subjective Date Seen: 02/15/22 Interval history: Patient has minimal abdominal pain at his incision when he is moving around or walking. He denied any nausea. He drink cranberry juice yesterday. He is passing some gas. He walked 3 times yesterday but felt weak. Exam Narrative: Exam Narrative: NG tube continues to be clamped. Abdomen: Soft, minimally distended, not tender to palpation, midline surgical incision with intact anni. The area of erythema at the superior portion of the incision is lasts erythematous today. There is slightly increased erythema at the most inferior portion of the incision. The 2 open areas of the midline incision were repacked today with dry Nu Gauze to absorb some of the drainage. The right paramedian incision was repacked with wet to dry. Both incisions were covered with gauze and tape. Const: Vital Signs, click to edit/add: Vital Signs - 24 hr 02/14/22 12:00 02/14/22 16:00 02/14/22 16:00 Temperature 98.0 F 97.8 F Pulse Rate [Left A pical] 91 92 Respiratory Rate 18 18 16 Blood Pressure [Ri ght Arm] 115/70 125/80 Pulse Oximetry 96 98 98 Oxygen Delivery Me thod Room Air Room Air Room Air Fraction of Inspir ed Oxygen 16 02/14/22 19:41 02/14/22 23:00 02/15/22 00:00 Temperature 98.5 F Pulse Rate [Left A pical] 88 92 Respiratory Rate 20 20 20 Blood Pressure [Ri ght Arm] 137/85 Pulse Oximetry 95 96 Oxygen Delivery Me thod Room Air Room Air Fraction of Inspir ed Oxygen 02/15/22 00:00 02/15/22 03:09 02/15/22 08:00 Temperature 98.3 F 98.1 F Pulse Rate [Left A pical] 92 86 Respiratory Rate 20 20 18 Blood Pressure [Ri ght Arm] 116/76 127/78 Pulse Oximetry 96 96 96 Oxygen Delivery Me thod Room Air Room Air Room Air Fraction of Inspir ed Oxygen 02/15/22 08:00 Temperature 97.8 F Pulse Rate [Left A pical] 84 Respiratory Rate 18 Blood Pressure [Ri ght Arm] 121/76 Pulse Oximetry 98 Oxygen Delivery Me thod Room Air Fraction of Inspir ed Oxygen Progress Note: A&P Assessment and plan (1) Superficial incisional infection of surgical site: Problem details: Continue doing wet-to-dry dressing changes. Will watch the inferior most port of the incision. Status: Acute (2) Status post exploratory laparotomy: Problem details: 66-year-old male s/p exploratory laparotomy and revision of ileocolic anastomosis POD 7. Will leave NG clamped since patient has minimal abdominal distension. Patient can continue with clear liquid diet. I discussed with him again that he needs to be ambulating as much as possible. I looked into prescribing promotility drugs however Reglan has dopamine blocking affect which is not a desirable effect in a patient with Parkinson's disease. We might attempt to erythromycin if patient continues to have prolonged ileus. Will continue TPN until patient is tolerating regular diet. Status: Acute
[2022-02-15] MEDS: ENOXAPARIN 40 MG/0.4 ML INJ SUBCUT (13:57)
--- NOTE | 2022-02-15 14:34 | P.IMPN_ITS ---
Progress Note: A&P Assessment and plan (1) SBO (small bowel obstruction): Problem details: Resolved Status: Acute (2) Status post exploratory laparotomy: Problem details: 66-year-old male s/p exploratory laparotomy and revision of ileocolic anastomosis POD 7. Will leave NG clamped since patient has minimal abdominal distension. Patient can continue with clear liquid diet. I discussed with him again that he needs to be ambulating as much as possible. I looked into prescribing promotility drugs however Reglan has dopamine blocking affect which is not a desirable effect in a patient with Parkinson's disease. We might attempt to erythromycin if patient continues to have prolonged ileus. Will continue TPN until patient is tolerating regular diet. Status: Acute (3) Protein-calorie malnutrition, severe: Problem details: On TPN. Status: Acute (4) Postoperative ileus: Status: Acute Assessment and Plan: NG tube still in place. In process of clamping it and anticipate possibly removing NG tube as early as tomorrow. (5) Superficial incisional infection of surgical site: Problem details: Continue doing wet-to-dry dressing changes. Will watch the inferior most port of the incision. Status: Acute Assessment and Plan: Generally improving. On Zosyn for now. Unfortunately wound culture was never obtained. (6) Weakness: Problem details: Likely related to protein calorie malnutrition with baseline underlying physical deconditioning. PICC line in place. TPN running. Status: Acute (7) Anemia: Problem details: Stable Status: Acute (8) Hyponatremia: Problem details: Stable Status: Acute Assessment and Plan: Adjusting sodium levels in TPN. (9) Low vitamin B12 level: Status: Acute Assessment and Plan: On replacement. (10) Parkinson's disease: Problem details: Patient's Parkinson's disease significantly contributes to his mobility. He has not been doing his regular exercises and has not been as active and I think that contributes to his decreased mobility. I recommended to go back to his bicycle exercises starting at 10-15 minutes per day. He should continue walking as much as possible. He should be doing stretching exercises with the arms and legs. I cautioned them to avoid strenuous activity like core exercises and heavy lifting to avoid incisional hernia. Status: Chronic Assessment and Plan: 1. I have spoken with our pharmacist and ask them to adjust the timing of his doses of carbidopa levodopa. Plan 1. Reviewed my impressions with the patient and . 2. Answered their questions. 3. Will continue to follow with General surgery. 4. After patient transitions to oral intake only when a penitentiary bed is available he may be transferred there for temporary transitional care rehabilitation efforts. His and his 's goal remains for him to return home when feasible and safe to do so. Time Spent With Patient Total time spent: 30 minutes Subjective Time Seen by Provider: 10:30 Date Seen: 02/15/22 Interval history: Hospital day 14. Postoperative day 7, status post exploratory laparotomy and takedown of adhesions. Mornings are usually harder for him to start moving.? Such is his disposition again this morning.? Otherwise generally feels well. Has passed flatus and stool yesterday and today. NG tube has been clamped. Since the NG tube was clamped he started having hiccups, but the intensity and frequency of these have decreased substantially since yesterday. Tolerating clear liquids.? Denies nausea or vomiting.? Tolerating increased activities.? Still weak. Exam Narrative: Exam Narrative: NG tube is still in place. NG tube is clamped. Awake, alert, oriented it to self, place, time, situation. He is very patient with us. Speech is soft. Sometimes it is hard to understand what he says. Cooperative and friendly. Mood and affect are congruent. Lungs clear to auscultation. Heart tones with regular rhythm. Abdomen with active bowel sounds. Extremities with trace edema pretibially only. Skin is intact. With time and a great deal of effort he is able to transfer and ambulate with use of walker and standby assist and gait belt. Festinating gait. Bradykinesia. Rigidity. Const: Vital Signs, click to edit/add: Vital Signs - 24 hr 02/14/22 16:00 02/14/22 16:00 02/14/22 19:41 Temperature 97.8 F 98.5 F Pulse Rate [Left A pical] 92 88 Respiratory Rate 18 16 20 Blood Pressure [Ri ght Arm] 125/80 137/85 Pulse Oximetry 98 98 95 Oxygen Delivery Me thod Room Air Room Air Room Air Fraction of Inspir ed Oxygen 16 02/14/22 23:00 02/15/22 00:00 02/15/22 00:00 Temperature 98.3 F Pulse Rate [Left A pical] 92 92 Respiratory Rate 20 20 20 Blood Pressure [Ri ght Arm] 116/76 Pulse Oximetry 96 96 Oxygen Delivery Me thod Room Air Room Air Fraction of Inspir ed Oxygen 02/15/22 03:09 02/15/22 08:00 02/15/22 08:00 Temperature 98.1 F 97.8 F Pulse Rate [Left A pical] 86 84 Respiratory Rate 20 18 18 Blood Pressure [Ri ght Arm] 127/78 121/76 Pulse Oximetry 96 96 98 Oxygen Delivery Me thod Room Air Room Air Room Air Fraction of Inspir ed Oxygen 02/15/22 12:00 Temperature 97.4 F L Pulse Rate [Left A pical] 89 Respiratory Rate 18 Blood Pressure [Ri ght Arm] 108/69 Pulse Oximetry 98 Oxygen Delivery Me thod Room Air Fraction of Inspir ed Oxygen Labs Labs: Laboratory Results - last 24 hr 02/15/22 02/15/22 06:54 06:54 Hgb 10.0 L Sodium 130 L
--- NOTE | 2022-02-15 16:42 | PC.NURSE ---
Addendum entered by Estrellita Triana RN 02/15/22 19:20: MD PHONED REGARDING NAUSEA SEE NEW ORDERS. Addendum entered by Estrellita Triana RN 02/15/22 17:37: SUDDEN ONSET OF NAUSEA AT 1730, PRN ZOFRAN GIVEN. Original Note: PATIENT PLEASANT AND COOPERATIVE WITH STAFFING, UP SBA WITH WALKER AND BELT, HAS WALKED X2 TODAY, PATIENTS GOAL IS X3, PATIENT VERY SAD AND WITHDRAWN THIS MORNING AFTER WALK FOR WHICH HE WAS ABLE TO MAKE IT INTO THE HALLWAY, PATIENT EXPRESSED NOT SEEING IMPROVEMENT, PATIENT IS COMPARING HIS MOVEMENT ABILITY TO HIS ABILITY PRIOR TO THIS HOSPITALIZATION, PATIENT REASSURED HE WAS DOING GREAT BY MOVING AND GETTING INTO THE HALLWAY AND SHOULD COMPARE TO THE DAYS PREVIOUS, THIS AFTERNOON PATIENT ABLE TO WALK WITH BIGGER STEPS AND PATIENT FELT VERY ACCOMPLISHED BY THIS, RATING PAIN 2-4/10 IN ABDOMEN BEING MANAGED WITH PRN DILAUDID, DRESSING CHANGED BY MD THIS AM, MINIMAL DRAINAGE FROM MEDIAL ABDOMINAL DRESSING, ABDOMEN SLIGHTLY DISTENDED, NG REMAINS IN AND CLAMPED PER MD, PATIENT PASSING GAS, TOLERATING CLD WITHOUT NASUEA, PICC TO RIGHT UPPER ARM REMAINS PATENT, AT BEDSIDE THIS MORNING AND VERY SUPPORTIVE.
[2022-02-15] MEDS: ONDANSETRON ODT 4 MG TAB PO (17:27)
[2022-02-15] MEDS: AA 5 %/CALCIUM/LYTES/DEXT 20 % 2,000 ML 80 ML IVPB (18:15)
[2022-02-15] MEDS: ONDANSETRON 2 MG/ML inj IVP ×2 (19:32→20:26)
[2022-02-15] MEDS: CITALOPRAM HYDROBROMIDE 20 MG TABLET PO (21:51)
[2022-02-15] MEDS: PRAVASTATIN 80 MG TABLET 1 EACH PO (21:52)
[2022-02-15] MEDS: 0.9 % SODIUM CHLORIDE 250 ml IV ×2 (23:57→23:58)
[2022-02-16] VITALS (10 sets, daily range): BP systolic 105–133; BP diastolic 63–76; PULSE 85–89; RESP 18–20; TEMP 36.6–36.9; O2SAT 96–100
--- NOTE | 2022-02-16 00:09 | PC.NURSE ---
19-00: Pt had nausea beginning of shift even after oral md radhika updated w order to give iv, pt recieved 4mg twice, dry heaving no emesis, noted left bowels absent, made pt npo temporarily to see if would resolve, eventually pt had flatus with incontinent stool and bowels active x4, bowels normally distended comparable to prior night, currently resting w/o nausea or increased distention. Changed abdomen drsgs with soaked 1/2 gauze, some redness along midline incision with warmth but improving, brown/serosanguinous drainage with odor noted on drsg and moderate amount expressed while pressing on abdomen probably 5-10cc.
[2022-02-16] MEDS: PIPERACILLIN/TAZOBACTAM 3.375 GM in 0.9 % SODIUM CHLORIDE Mini-bag 100 ML IVPB ×3 (03:20→21:13)
[2022-02-16] MEDS: ONDANSETRON 2 MG/ML inj IVP (04:07)
[2022-02-16 06:57] LABS: Lactate* 0.8 mmol/L (0.5-1.9)
[2022-02-16 07:10] LABS: Hematocrit 29.3 % (37.0-53.0); Hemoglobin* 9.8 gm/dL (13.5-17.5); Immature Reticulocyte Fraction 34.7 % (2.3-13.4); Mean Corpuscular HGB Conc 33 gm/dL (32-36); Mean Corpuscular Hemoglobin 30 pg (26-34); Mean Corpuscular Volume 90 fL (80-100); Platelet Count* 449 K/uL (140-440); Red Blood Count 3.24 m/uL (4.30-5.90); Reticulocytes Absolute 0.06 # (0.03-0.08); White Blood Count* 10.25 K/uL (4.50-11.00)
[2022-02-16 07:25] LABS: Iron* 16 ug/dL (49-181)
[2022-02-16 07:27] LABS: Albumin* 2.7 g/dL (3.3-5.0); Chloride* 98 mmol/L (96-114)
[2022-02-16 07:28] LABS: Potassium* 4.4 mmol/L (3.6-5.1); Sodium* 129 mmol/L (135-149)
[2022-02-16 07:30] LABS: Cholesterol* 66 mg/dL (90-199); Creatinine* 0.6 mg/dL (0.5-1.5); Est. Creatinine Clearance* 70.87; Estimated Glomerular Filt Rate 107 ml/min
[2022-02-16 07:31] LABS: Alanine Aminotransferase* 12 U/L (4-50); Alkaline Phosphatase* 345 U/L (40-150); Aspartate Amino Transferase* 31 U/L (12-35); Bilirubin Total* 0.4 mg/dL (0.1-1.5); Blood Urea Nitrogen* 20 mg/dL (7-30); Carbon Dioxide* 25 mmol/L (20-32); Glucose* 122 mg/dL (60-115); Total Protein* 5.4 g/dL (6.0-8.3); Triglycerides* 106 mg/dL (40-149)
[2022-02-16 07:32] LABS: HDL Cholesterol* 12 mg/dL (>=40); LDL Cholesterol Calculated 33 mg/dL (<100); Magnesium* 2.1 mg/dL (1.5-2.6); Phosphorus* 3.9 mg/dL (2.5-4.5)
[2022-02-16 07:34] LABS: C Reactive Protein* 6.5 mg/dL (0.5-1.0)
[2022-02-16 07:35] LABS: Percent Iron Saturation 9 % (20-50); Total Iron Binding Capacity 182 ug/dL (261-462)
[2022-02-16] MEDS: FAMOTIDINE 20 MG TABLET PO ×2 (09:13→21:15)
[2022-02-16] MEDS: SODIUM CHLORIDE 0.9 % (FLUSH) 10 ML SYRINGE 5 ML IVF ×2 (09:13→21:15)
--- NOTE | 2022-02-16 13:09 | PM.GSPN ---
Subjective Subjective Date Seen: 02/16/22 Interval history: Patient continued to have his NG tube clamped. He had an episode of nausea yesterday. He subsequently passed a lot a gas and had liquid bowel movement. He also had a bowel movement today in the morning. He denies nausea in the morning. He tolerated some clears yesterday. Ambulated. Exam Narrative: Exam Narrative: Abdomen: Soft, Minimally distended, similar to yesterday, not tender to palpation, the right paramedian incision wound was repacked with Hydrofera Blue. The midline laparotomy incision with intact anni. The erythema at the inferior portion of the incision is slightly less pronounced today. The packing in 2 open areas was changed and there was thin murky creamy fluid came out from the incision. There is no erythema surrounding the open areas. The midline wounds were repacked with wet to dries. Const: Vital Signs, click to edit/add: Vital Signs - 24 hr 02/15/22 16:00 02/15/22 16:00 02/15/22 20:00 Temperature 97.6 F 98 F Pulse Rate [Left A pical] 86 80 Respiratory Rate 18 18 18 Blood Pressure [Ri ght Arm] 119/76 123/80 Pulse Oximetry 99 99 95 Oxygen Delivery Me thod Room Air Trach Col lar Room Air Room Air 02/15/22 23:54 02/15/22 23:55 02/16/22 00:00 Temperature 97.9 F Pulse Rate [Left A pical] 85 85 Respiratory Rate 18 18 Blood Pressure [Ri ght Arm] 119/64 Pulse Oximetry Oxygen Delivery Me thod Room Air 02/16/22 03:00 02/16/22 07:00 02/16/22 07:00 Temperature 98.1 F 97.9 F Pulse Rate [Left A pical] 86 85 85 Respiratory Rate 18 18 18 Blood Pressure [Ri ght Arm] 116/68 133/76 Pulse Oximetry 96 99 Oxygen Delivery Me thod Room Air Room Air 02/16/22 08:00 02/16/22 11:00 Temperature 98.0 F Pulse Rate [Left A pical] 88 Respiratory Rate 18 20 Blood Pressure [Ri ght Arm] 122/71 Pulse Oximetry 99 100 Oxygen Delivery Me thod Room Air Room Air Progress Note: A&P Assessment and plan (1) Status post exploratory laparotomy: Problem details: 66-year-old male s/p exploratory laparotomy and revision of ileocolic anastomosis POD 8. Patient tolerated clamped NG for 48 hours. we removed and G today. Will continue him on clears and full liquid diet. Patient does not like broth so he can advance to things from full liquid diet. Will continue TPN until he is fully taking regular diet. Patient is to continue ambulating. Patient will discharge to subacute rehab when he is ready. Not Ready to discharge yet. Status: Acute
--- NOTE | 2022-02-16 16:27 | P.IMPN_ITS ---
Progress Note: A&P Assessment and plan (1) Status post exploratory laparotomy: Problem details: Postop exploratory laparotomy with revision of ileocolic anastomosis and lysis of adhesions with small-bowel obstruction and postoperative ileus now appearing to resolve. Remains on TPN. NG is removed and he is now taking clear liquids. Continue TPN until adequate oral caloric intake. Status: Acute (2) Postoperative ileus: Status: Acute Assessment and Plan: Improving (3) Superficial incisional infection of surgical site: Status: Acute Assessment and Plan: Improving (4) SBO (small bowel obstruction): Problem details: Resolved Status: Acute Assessment and Plan: Improving (5) Physical deconditioning: Status: Acute Assessment and Plan: Slowly improving (6) Protein-calorie malnutrition, severe: Problem details: On TPN. Status: Acute Assessment and Plan: Continue TPN until oral intake is better (7) Weakness: Problem details: Likely related to protein calorie malnutrition with baseline underlying physical deconditioning. PICC line in place. TPN running. Status: Acute Assessment and Plan: Continue PT and OT (8) Hyponatremia: Problem details: Stable Status: Acute Assessment and Plan: Continue to adjust TPN Time Spent With Patient Total time spent: Total time spent today is 40 minutes, 30 minutes in coordination of care discussing with patient and other providers management nutrition antibiotics disability. Subjective Date Seen: 02/16/22 Interval history: 66-year-old male seen in followup of prolonged hospitalization for bowel obstruction. He has had his NG clamped for the last 2 days. Now pulled out today. He had some nausea yesterday it has had no vomiting. He has had small amount of clear liquids which he has tolerated. He had a formed stool last night and some diarrhea this morning. He is not aware of any fever. He reports minimal abdominal pain. He remains on antibiotics for a cellulitis of his surgical incision from his laparotomy. He continues to be disabled by his prolonged hospitalization and Parkinson's disease. Exam Narrative: Exam Narrative: He is alert and appears in no distress. Lying in bed. He gives his own history. Respirations are clear to auscultation. Breathing is unlabored. Cardiovascular: S1, S2, regular rate and rhythm. No murmur gallop or rub. Abdomen: Bowel sounds are active. Abdomen is soft. Has mild diffuse tende rness. Incision has mild erythema. There is some drainage from his incision staining his dressings as well. Extremities without significant edema. He moves all 4 extremities well. He is noted to walk with relatively severe bradykinesia and some gait instability with his walker Const: Vital Signs, click to edit/add: Vital Signs - 24 hr 02/15/22 20:00 02/15/22 23:54 02/15/22 23:55 Temperature 98 F 97.9 F Pulse Rate [Left A pical] 80 85 Respiratory Rate 18 18 Blood Pressure [Ri ght Arm] 123/80 119/64 Pulse Oximetry 95 Oxygen Delivery Me thod Room Air Room Air 02/16/22 00:00 02/16/22 03:00 02/16/22 07:00 Temperature 98.1 F Pulse Rate [Left A pical] 85 86 85 Respiratory Rate 18 18 18 Blood Pressure [Ri ght Arm] 116/68 Pulse Oximetry 96 Oxygen Delivery Me thod Room Air 02/16/22 07:00 02/16/22 08:00 02/16/22 11:00 Temperature 97.9 F 98.0 F Pulse Rate [Left A pical] 85 88 Respiratory Rate 18 18 20 Blood Pressure [Ri ght Arm] 133/76 122/71 Pulse Oximetry 99 99 100 Oxygen Delivery Me thod Room Air Room Air Room Air 02/16/22 16:00 02/16/22 15:00 02/16/22 15:00 Temperature 98.5 F Pulse Rate [Left A pical] 88 89 Respiratory Rate 20 20 20 Blood Pressure [Ri ght Arm] 108/63 Pulse Oximetry 99 99 Oxygen Delivery Me thod Room Air Room Air Documenting provider has reviewed patient's vital signs: yes Labs Labs: Laboratory Results - last 24 hr 02/16/22 02/16/22 02/16/22 06:44 06:44 06:44 WBC 10.25 RBC 3.24 L Hgb 9.8 L Hct 29.3 L MCV 90 MCH 30 MCHC 33 Plt Count 449 H Absolute Retic 0.06 Percent Retic 2.0 Immature Retic Fraction 34.7 H Retic Hgb Equivalent 27.0 L Sodium 129 L Potassium 4.4 Chloride 98 Carbon Dioxide 25 BUN 20 Creatinine 0.6 Estimated Creat Clear 70.87 Estimated GFR 107 Glucose 122 H Lactate Calcium 8.0 L Phosphorus 3.9 Magnesium 2.1 Iron 16 L TIBC 182 L % Saturation 9 L Ferritin Total Bilirubin 0.4 AST 31 ALT 12 Alkaline Phosphatase 345 H C-Reactive Protein 6.5 H Total Protein 5.4 L Albumin 2.7 L Triglycerides 106 Cholesterol 66 L LDL Cholesterol, Calc 33 HDL Cholesterol 12 L 02/16/22 02/16/22 06:44 06:44 WBC RBC Hgb Hct MCV MCH MCHC Plt Count Absolute Retic Percent Retic Immature Retic Fraction Retic Hgb Equivalent Sodium Potassium Chloride Carbon Dioxide BUN Creatinine Estimated Creat Clear Estimated GFR Glucose Lactate 0.8 Calcium Phosphorus Magnesium Iron TIBC % Saturation Ferritin 363.0 Total Bilirubin AST ALT Alkaline Phosphatase C-Reactive Protein Total Protein Albumin Triglycerides Cholesterol LDL Cholesterol, Calc HDL Cholesterol
[2022-02-16] MEDS: ENOXAPARIN 40 MG/0.4 ML INJ SUBCUT (16:40)
[2022-02-16] MEDS: PIPERACILLIN/TAZOBACTAM 3.375 GM in 0.9 % SODIUM CHLORIDE Mini-bag 100 ML 2 GM IVPB (16:41)
[2022-02-16] MEDS: AA 5 %/CALCIUM/LYTES/DEXT 20 % 2,000 ML 80 ML IVPB (18:03)
--- NOTE | 2022-02-16 19:29 | PC.NURSE ---
Pt up with SBA, walker, and gait belt. Needs encouraging with ambulation and repositioning. Coccyx skin show no sign of breakdown. Denies nausea, intermittent bouts of dry heave, pt states he does not feel nauseated when this is happening. NG tube DC'd by Dr. Jessica Mays. Vaseline applied to inner nare from mild irritation of tube. Dressing changed per order. Encoragment needed for nutrition food intake.
[2022-02-16] MEDS: PRAVASTATIN 80 MG TABLET 1 EACH PO (21:13)
[2022-02-16] MEDS: CITALOPRAM HYDROBROMIDE 20 MG TABLET PO (21:14)
[2022-02-16 21:22] LABS: Slide Review Reflex No
[2022-02-17] VITALS (7 sets, daily range): BP systolic 94–126; BP diastolic 63–79; PULSE 83–104; RESP 18–20; TEMP 36.4–36.7; O2SAT 97–99
[2022-02-17] MEDS: PIPERACILLIN/TAZOBACTAM 3.375 GM in 0.9 % SODIUM CHLORIDE Mini-bag 100 ML IVPB ×4 (03:30→21:38)
[2022-02-17] MEDS: HYDROmorphone 0.5 mg/0.5 ml inj IVP ×3 (04:05→22:04)
[2022-02-17 06:52] LABS: Triglycerides* 105 mg/dL (40-149)
[2022-02-17] MEDS: FAMOTIDINE 20 MG TABLET PO ×2 (09:33→21:37)
[2022-02-17] MEDS: SODIUM CHLORIDE 0.9 % (FLUSH) 10 ML SYRINGE 5 ML IVF ×4 (09:34→21:38)
--- NOTE | 2022-02-17 11:19 | PM.GSPN ---
Subjective Subjective Date Seen: 02/17/22 Interval history: Patient did better yesterday. He drank half a can of Ensure and felt like he had some energy. He went for a walk once. He denies any nausea vomiting. Denied abdominal pain. He did still have hiccups. He continued to pass gas throughout the day. Exam Narrative: Exam Narrative: Abdomen: Soft, mildly distended, not tender to palpation, midline laparotomy incision with intact anni, the inferior most portion of the incision was opening up and a Q-tip was placed to separate the edges of the skin. Small amount of serosanguineous fluid came out. This was then packed with iodoform dressing. The other 2 areas that were open were repacked with iodoform dressing. The paramedian dressing was not changed today. Const: Vital Signs, click to edit/add: Vital Signs - 24 hr 02/16/22 16:00 02/16/22 15:00 02/16/22 15:00 Temperature 98.5 F Pulse Rate [Left A pical] 88 89 Respiratory Rate 20 20 20 Blood Pressure [Ri ght Arm] 108/63 Pulse Oximetry 99 99 Oxygen Delivery Me thod Room Air Room Air 02/16/22 19:00 02/16/22 23:00 02/16/22 23:00 Temperature 97.9 F 98.1 F Pulse Rate [Left A pical] 86 87 Respiratory Rate 20 20 20 Blood Pressure [Ri ght Arm] 120/72 105/64 Pulse Oximetry 97 96 Oxygen Delivery Me thod Room Air Room Air 02/16/22 23:18 02/17/22 02:48 Temperature 98 F Pulse Rate [Left A pical] 88 Respiratory Rate 20 20 Blood Pressure [Ri ght Arm] 126/76 Pulse Oximetry 96 97 Oxygen Delivery Me thod Room Air Room Air Progress Note: A&P Assessment and plan (1) Status post exploratory laparotomy: Status: Acute Plan 66-year-old male s/p exploratory laparotomy and revision of ileocolic anastomosis POD 9. Will continue IV antibiotics for 7 days and stop at that time. Patient did not have much for intake yesterday but denied any nausea and vomiting and was passing gas. I will advance him to regular diet to see if he finds food that is more palatable on the regular diet many. Patient will advance slowly. Patient will continue ambulating. Possibly ready to be discharged on Monday.
--- NOTE | 2022-02-17 15:28 | PC.NURSE ---
Pt advanced from FL diet to regular diet at lunch time. Eval by PT and OT. One moderate loose brown BM in the toilet. IV Zosyn infused w/o difficulty this am via #24 IV in left Forearm. TPN continues at 80cc/hr via PICC line RUE. Surgeon in to perform two dressing changes this am. updated on pt progress at lunch time. Continue POC, report to Gris RN for evening shift.
--- NOTE | 2022-02-17 15:29 | PM.IMPN1 ---
Progress Note: A&P Assessment and plan (1) Status post exploratory laparotomy: Problem details: Resolving ileus. Advancing diet. Status: Acute (2) SBO (small bowel obstruction): Problem details: Resolved Status: Acute (3) Postoperative ileus: Problem details: Appears to have resolved. Continue monitoring Status: Acute (4) Malnutrition: Problem details: Continue on TPN per surgery. Advance diet Status: Acute (5) Protein-calorie malnutrition, severe: Problem details: On TPN. Status: Acute (6) Parkinson's disease: Problem details: Patient's Parkinson's disease significantly contributes to his mobility. He has not been doing his regular exercises and has not been as active and I think that contributes to his decreased mobility. I recommended to go back to his bicycle exercises starting at 10-15 minutes per day. He should continue walking as much as possible. He should be doing stretching exercises with the arms and legs. I cautioned them to avoid strenuous activity like core exercises and heavy lifting to avoid incisional hernia. Status: Chronic (7) Weakness: Problem details: Likely related to protein calorie malnutrition with baseline underlying physical deconditioning. PICC line in place. TPN running. Status: Acute (8) Physical deconditioning: Status: Acute (9) Superficial incisional infection of surgical site: Problem details: Discontinue intravenous antibiotics per surgery Status: Acute Plan Continue in hospital for management of above problems. Total time spent today is 30 minutes, 20 minutes in coordination of care discussing with patient and surgery management of nutrition, infection, disability Subjective Date Seen: 02/17/22 Interval history: 66-year-old male seen in followup of recurrent abdominal surgery, SBO with lysis of adhesions and ileus, malnutrition and Parkinson's. Patient reports doing fairly well. Yesterday he started on a full liquid diet and said he tolerated drinking Ensure having pudding and ice cream. This did not lead to any nausea or vomiting. He still having some hiccups. Bowels are working. He reports walking is been quite difficult. He tried to walk this morning but could not get his feet to work. Exam Narrative: Exam Narrative: He is alert and appears in no distress. Speech is normal. He is oriented to his circumstances and pleasant. Respirations are clear to auscultation. Cardiovascular: S1, S2, regular rate and rhythm. Abdomen: Bowel sounds active. Abdomen is soft without tenderness or mass. Incision looks better with less erythema. Extremities without edema. He is observed to walk with an extreme shuffling slow gait. Require standby assistance Const: Vital Signs, click to edit/add: Vital Signs - 24 hr 02/16/22 16:00 02/16/22 19:00 02/16/22 23:00 Temperature 97.9 F Pulse Rate [Left A pical] 86 Respiratory Rate 20 20 20 Blood Pressure [Ri ght Arm] 120/72 Pulse Oximetry 99 97 Oxygen Delivery Me thod Room Air Room Air 02/16/22 23:00 02/16/22 23:18 02/17/22 02:48 Temperature 98.1 F 98 F Pulse Rate [Left A pical] 87 88 Respiratory Rate 20 20 20 Blood Pressure [Ri ght Arm] 105/64 126/76 Pulse Oximetry 96 96 97 Oxygen Delivery Me thod Room Air Room Air Room Air 02/17/22 08:00 02/17/22 08:00 02/17/22 12:00 Temperature 97.6 F 98.1 F Pulse Rate [Left A pical] 86 104 H Respiratory Rate 20 18 Blood Pressure [Ri ght Arm] 121/79 94/63 Pulse Oximetry 99 99 97 Oxygen Delivery Me thod Room Air Room Air Room Air Documenting provider has reviewed patient's vital signs: yes Labs Labs: Laboratory Results - last 24 hr 02/17/22 06:16 Triglycerides 105
[2022-02-17] MEDS: ENOXAPARIN 40 MG/0.4 ML INJ SUBCUT (15:50)
[2022-02-17] MEDS: ONDANSETRON ODT 4 MG TAB PO (16:00)
[2022-02-17] MEDS: AA 5 %/CALCIUM/LYTES/DEXT 20 % 2,000 ML 80 ML IVPB (17:57)
[2022-02-17] MEDS: CITALOPRAM HYDROBROMIDE 20 MG TABLET PO (21:37)
[2022-02-17] MEDS: PRAVASTATIN 80 MG TABLET 1 EACH PO (21:37)
[2022-02-17] MEDS: 0.9 % SODIUM CHLORIDE 250 ml IV (22:46)
--- NOTE | 2022-02-17 22:50 | PC.NURSE ---
Addendum entered by Gris Beckman RN 02/17/22 23:40: Pain decreased to 2/10. Patient up to chair with 1 assist, walker and gait belt. Declined walk in hallway d/t feeling too tired. Did use pedals at side of bed. Original Note: End of Shift: Patient pleasant and cooperative. Afebrile. Bowel sounds active and passing flatus. Tolerating regular diet with no nausea. C/o frequent hiccups that cause dry heaving, PRN Zofran x1. Rating pain in abdomen up to 5-7/10 and PRN Dilaudid given x2. Abdominal dressing changed as ordered.
[2022-02-18] VITALS (7 sets, daily range): BP systolic 90–146; BP diastolic 61–80; PULSE 83–94; RESP 16–24; TEMP 36.3–36.7; O2SAT 95–98
[2022-02-18] MEDS: PIPERACILLIN/TAZOBACTAM 3.375 GM in 0.9 % SODIUM CHLORIDE Mini-bag 100 ML IVPB ×3 (02:56→23:41)
[2022-02-18] MEDS: HYDROmorphone 0.5 mg/0.5 ml inj IVP ×3 (02:56→21:08)
[2022-02-18 07:21] LABS: Basophils Percent Auto 0.3 % (0.0-3.0); Eosinophils Percent Auto 1.4 % (0.0-7.0); Hematocrit 32.1 % (37.0-53.0); Hemoglobin* 10.4 gm/dL (13.5-17.5); Immature Granulocytes Abs Auto 0.25 K/uL (0.00-0.30); Mean Corpuscular HGB Conc 32 gm/dL (32-36); Mean Corpuscular Hemoglobin 30 pg (26-34); Mean Corpuscular Volume 93 fL (80-100); Platelet Count* 567 K/uL (140-440); RDW Coefficient of Variation % 14.1 % (11.5-15.5); Red Blood Count 3.47 m/uL (4.30-5.90); White Blood Count* 11.02 K/uL (4.50-11.00)
[2022-02-18 07:22] LABS: Slide Review Reflex No
[2022-02-18 07:35] LABS: Chloride* 97 mmol/L (96-114); Sodium* 135 mmol/L (135-149)
--- NOTE | 2022-02-18 07:37 | PC.NURSE ---
END OF SHIFT NOTE: PT PLEASANT AND COOPERATIVE. AMBULATES TO BATHROOM WITH WALKER, GB, A1. PT HX OF PARKINSON'S DISEASE AND MOVES SLOWLY WITH A SHUFFLING GAIT. PT RATED ABDOMINAL PAIN 8/10 THAT WAS RELIEVED WITH PRN DILAUDID. BG CHECKS REQUIRED NO S/S. PT ATTEMPTED TO HAVE BM, BUT WAS UNSUCCESSFUL. DRESSINGS TO ABDOMEN CDI.
[2022-02-18 07:38] LABS: Carbon Dioxide* 29 mmol/L (20-32); Creatinine* 0.7 mg/dL (0.5-1.5); Est. Creatinine Clearance* 70.87; Estimated Glomerular Filt Rate 102 ml/min
[2022-02-18 07:39] LABS: Blood Urea Nitrogen* 25 mg/dL (7-30); Calcium* 8.3 mg/dL (8.4-10.6); Glucose* 149 mg/dL (60-115)
[2022-02-18] MEDS: FAMOTIDINE 20 MG TABLET PO (09:25)
--- NOTE | 2022-02-18 09:40 | NUTR.NU ---
Nutrition follow up: Patient reports appetite is fair. He is experiencing taste changes currently. He reports food isn't tasting very good. Current weight is 148.8#, decreased approximately 1.2# from initial weight. Diet regular. Recommend change to low fiber diet to allow slow transition to regular/higher fiber diet. Patient reports having a couple of bites of toast and fruit for breakfast. Patient and spouse/designated technical healthcare consultant were educated on a low fiber diet. Discussed foods recommended and to avoid. Discussed increasing fiber slowly as he is feeling better. Patient and spouse verbalized understanding. Handouts provided to support education from AND NCM. Also discussed importance of protein. Patient is a vegetarian. He does eat fish and cheese. He also supplements his diet with protein shakes at home and protein powder. He will continue to choose from the menu based on his preferences. Plan to offer enlive supplements between meals. Patient is agreeable to this. Enlive TID will provide 1050 kcals and 60 grams protein. RDN to continue to monitor and follow up as needed.
--- NOTE | 2022-02-18 10:05 | CRLHL7_ITS ---
For Patients: As a result of the Century Cures Act, medical imaging exams and procedure reports are released immediately into your electronic medical record. You may view this report before your referring provider. If you have questions, please contact your health care provider. Indication: PAIN, CONSTIPATION, CONCERN OF ILEUS Technique: Abdomen two views Comparison: Small-bowel follow-through 01/[address] 02/02/2022 Findings: Multifocal dilated loops of small bowel throughout the abdomen containing air-fluid levels. No free air. Relative absence of colonic stool. No pleural effusion. Postop changes right abdomen. Impression: At least partial small bowel obstruction. The appearance is more obstructive than on prior studies. Dictated by Alexey Carter MD @ 02/18/2022 11:23:26 AM (Electronically Signed)
--- NOTE | 2022-02-18 10:33 | PM.GSPN ---
Subjective Subjective Date Seen: 02/18/22 Interval history: Patient had a few episodes of pain last night. He feels like his abdomen is more distended. He was burping a lot. He was passing gas yesterday but not today. Refuse to ambulate in the morning. Exam Narrative: Exam Narrative: Abdomen: Soft, distended, More so than yesterday, not tender to palpation, right paramedian incision dressing was changed today. Hydrea Thera blue was applied to the wound and it was covered with Mepilex. The midline incision openings were repacked with iodoform gauze. There were total of 3 small open areas. The drainage has been decreasing From these wounds. Const: Vital Signs, click to edit/add: Vital Signs - 24 hr 02/17/22 12:00 02/17/22 16:00 02/17/22 16:00 Temperature 98.1 F 97.5 F L Pulse Rate [Left A pical] 104 H 88 Pulse Rate [Pulse Oximeter] Respiratory Rate 18 18 Blood Pressure [Le ft Arm] Blood Pressure [Ri ght Arm] 94/63 109/67 Pulse Oximetry 97 99 99 Oxygen Delivery Me thod Room Air Room Air Room Air 02/17/22 15:00 02/17/22 20:00 02/17/22 23:00 Temperature 97.6 F Pulse Rate [Left A pical] 88 89 Pulse Rate [Pulse Oximeter] 83 Respiratory Rate 18 18 20 Blood Pressure [Le ft Arm] Blood Pressure [Ri ght Arm] 99/67 Pulse Oximetry 98 Oxygen Delivery Me thod Room Air 02/18/22 00:00 02/18/22 00:00 02/18/22 03:00 Temperature 97.4 F L 97.4 F L Pulse Rate [Left A pical] 89 Pulse Rate [Pulse Oximeter] 83 86 Respiratory Rate 20 20 24 Blood Pressure [Le ft Arm] 106/65 132/72 Blood Pressure [Ri ght Arm] 99/67 Pulse Oximetry 95 95 96 Oxygen Delivery Me thod Room Air Room Air Room Air Progress Note: A&P Assessment and plan (1) Status post exploratory laparotomy: Status: Acute Assessment and Plan: 66-year-old male s/p exploratory laparotomy and revision of ileocolic anastomosis POD 10. I discussed with the patient and his that his abdomen is slightly more distended than yesterday. He continues to have an ileus. This patient is fairly complex. I think his Parkinson's disease is definitely contributing to his slow motility. Usually promotility medications block Dopamine receptors and would worsen his parkinsonism. We will back off of his diet. I recommended to drink Ensures but wait on eating anything else. Patient needs to continue ambulating. We also discussed to minimize his narcotic intake and take Tylenol and ibuprofen. Patient is not ready to be discharged.
[2022-02-18] MEDS: SODIUM CHLORIDE 0.9 % (FLUSH) 10 ML SYRINGE 5 ML IVF ×2 (12:02→21:19)
[2022-02-18] MEDS: ENOXAPARIN 40 MG/0.4 ML INJ SUBCUT (13:55)
[2022-02-18] MEDS: polyethylene glycoL 3350 17 GM PACK PO (14:05)
--- NOTE | 2022-02-18 14:45 | PC.SOCIAL ---
Discharge planning: Met with pt who is requesting short term rehab at discharge prior to returning home. Pt has been to [facility] previously and would rather not go back to that facility. Pt is requesting another facility in [place] [facility]. There are currently no beds in facilities in [place]. Called [facility] and was informed they will likely have a bed available late Monday or early Monday after a discharge. Faxed information and awaiting call back with decision on admit. child and family services worker to follow up as needed.
--- NOTE | 2022-02-18 14:55 | PM.IMPN1 ---
Progress Note: A&P Assessment and plan (1) Status post exploratory laparotomy: Status: Acute (2) SBO (small bowel obstruction): Problem details: Clinically appears to have ileus or small bowel obstruction. Coordinate with surgery for plan of care. Continue TPN and decreased p.o. intake Status: Acute (3) Postoperative ileus: Problem details: Clinical concern for recurrent ileus Status: Acute (4) Malnutrition: Problem details: Continue on TPN per surgery. Advance diet as tolerated Status: Acute (5) Protein-calorie malnutrition, severe: Problem details: Continue TPN Status: Acute (6) Parkinson's disease: Problem details: Patient's Parkinson's disease significantly contributes to his mobility. He has not been doing his regular exercises and has not been as active and I think that contributes to his decreased mobility. I recommended to go back to his bicycle exercises starting at 10-15 minutes per day. He should continue walking as much as possible. He should be doing stretching exercises with the arms and legs. I cautioned them to avoid strenuous activity like core exercises and heavy lifting to avoid incisional hernia. Status: Chronic (7) Weakness: Problem details: Likely related to protein calorie malnutrition with baseline underlying physical deconditioning. PICC line in place. TPN running. Status: Acute (8) Physical deconditioning: Status: Acute (9) Superficial incisional infection of surgical site: Problem details: Discontinue intravenous antibiotics per surgery today Status: Acute Plan Continue in-hospital for monitoring of bowel function and nutritional support. Time Spent With Patient Total time spent: Total time spent today is 50 minutes, 30 minutes in coordination of care and discussing ongoing management of ileus/bowel obstruction/nutrition Subjective Date Seen: 02/18/22 Interval history: 66-year-old male seen in followup of prolonged hospital stay for management of postoperative ileus following laparotomy with lysis of adhesions. This morning the patient reported that he had had some increased abdominal cramping he had used IV Dilaudid to manage this which worked effectively he has not had a bowel movement in the last day he has had some belching. He feels more bloating as well. No vomiting. No fever. Exam Narrative: Exam Narrative: He is alert appears in no distress. Breathing is unlabored. Cardiovascular: S1, S2, regular rate and rhythm. Abdomen: Bowel sounds are present. Abdomen is somewhat distended. Incision has minimal erythema around it otherwise healing well. Mild diffuse tenderness to palpation. Extremities without edema. Const: Vital Signs, click to edit/add: Vital Signs - 24 hr 02/17/22 16:00 02/17/22 16:00 02/17/22 15:00 Temperature 97.5 F L Pulse Rate [Left A pical] 88 88 Pulse Rate [Pulse Oximeter] Respiratory Rate 18 18 Blood Pressure [Le ft Arm] Blood Pressure [Ri ght Arm] 109/67 Pulse Oximetry 99 99 Oxygen Delivery Vt thod Room Air Room Air 02/17/22 20:00 02/17/22 23:00 02/18/22 00:00 Temperature 97.6 F Pulse Rate [Left A pical] 89 Pulse Rate [Pulse Oximeter] 83 Respiratory Rate 18 20 20 Blood Pressure [Le ft Arm] Blood Pressure [Ri ght Arm] 99/67 Pulse Oximetry 98 95 [facility] Room Air 02/18/22 00:00 02/18/22 03:00 02/18/22 08:00 Temperature 97.4 F L 97.4 F L Pulse Rate [Left A pical] 89 Pulse Rate [Pulse Oximeter] 83 86 Respiratory Rate 20 24 Blood Pressure [Le ft Arm] 106/65 132/72 Blood Pressure [Ri ght Arm] 99/67 Pulse Oximetry 95 96 98 [facility] Room Air Room Air 02/18/22 08:00 02/18/22 13:00 Temperature 98.1 F 98 F Pulse Rate [Left A pical] Pulse Rate [Pulse Oximeter] 85 87 Respiratory Rate 20 20 Blood Pressure [Le ft Arm] 146/80 H 106/61 Blood Pressure [Ri ght Arm] Pulse Oximetry 98 96 Oxygen Delivery Vt thod Room Air Room Air Documenting provider has reviewed patient's vital signs: yes Labs Labs: Laboratory Results - last 24 hr 02/18/22 02/18/22 06:09 06:09 WBC 11.02 H RBC 3.47 L Hgb 10.4 L Hct 32.1 L MCV 93 MCH 30 MCHC 32 RDW Coeff of Latoya 14.1 Plt Count 567 H Neut % (Auto) 76.0 H Lymph % (Auto) 12.0 L [place] % (Auto) 8.0 Eos % (Auto) 1.4 Baso % (Auto) 0.3 Neut # (Auto) 8.40 H Lymph # (Auto) 1.30 [place] # (Auto) 0.90 Eos # (Auto) 0.20 Baso # (Auto) 0.00 Abs Immat Gran (auto) 0.25 Sodium 135 Potassium 4.0 Chloride 97 Carbon Dioxide 29 BUN 25 Creatinine 0.7 Estimated Creat Clear 70.87 Estimated GFR 102 Glucose 149 H Calcium 8.3 L Imaging Abdominal x-ray: Attestation: I have reviewed the pertinent imaging results. (Abdominal films showed dilated loops of bowel, possible small-bowel obstruction)
--- NOTE | 2022-02-18 15:43 | PC.NURSE ---
Pt evaluated by Dr. Tano Marley this morning. Both dressings changed per surgeon at bedside. updated on plan of care. Pt must walk a minimum of 3 times a day per Dr. Mays. Pt reluctant to move initially this morning. He did go to X-ray via w/c for an abdominal film and walked a long distance in the hallway with John from PT. Pt continues to belch and have the hiccoughs. New order for miralax initiated. IV zosyn infused. Pt's TPN rate decreased to 40cc/hr. Report to Linda Horn RN for evening shift. 1500 cc fluid restriction continues d/to low sodium level. [employer]person [employer] in to discuss low fiber diet with patient. No SS insulin given on day shift.
--- NOTE | 2022-02-18 15:55 | CRLHL7_ITS ---
For Patients: As a result of the Century Cures Act, medical imaging exams and procedure reports are released immediately into your electronic medical record. You may view this report before your referring provider. If you have questions, please contact your health care provider. INDICATION: Prolonged ileus TECHNIQUE: CT abdomen and pelvis acquired with 72 cc Isovue 370 IV contrast. COMPARISON: February 02, 2022. FINDINGS: Lower chest: The visualized lower lungs are aerated. No pleural or pericardial effusion. ABDOMEN: Liver: Normal enhancement. No focal suspicious hepatic lesions. Gallbladder and biliary: Mild gallbladder-wall thickening without radiopaque stone. Likely reactive. Normal caliber bile ducts. Spleen: Normal size and enhancement. Pancreas: Normal enhancement without peripancreatic inflammatory changes or ductal dilatation. Adrenal glands: Normal adrenal glands. Kidneys and ureters: Normal enhancement. No radio-opaque calculi. No hydroureteronephrosis. GI tract: The stomach is partially distended with fluid and air. Fluid filled borderline dilated loops small and large bowel measuring up to 47 millimeters in the small bowel without discrete transition point. Hyperemic loops of small bowel in the right daniel abdomen including proximal duodenum, and loops of ileum as well as portions of large bowel. Changes of right hemicolectomy. In the hepatic flexure region abutting the resection site, there is a rim enhancing fluid collection abutting the suture site axial image 53 measuring approximately 38 x 28 millimeters. Adjacent soft tissue inflammatory stranding. Colonic diverticulosis. Vascular structures: Patent abdominal aorta with atherosclerotic vascular calcifications. Circumaortic left renal vein, normal variant. Patent portosplenic confluence, portal veins, and hepatic veins. Lymph nodes: No lymphadenopathy in the abdomen or pelvis by size criteria. Peritoneum: No free air. PELVIS: Genitourinary system: Urinary bladder is partially decompressed. Normal size prostate. Symmetric seminal vesicles. SKELETAL STRUCTURES AND SOFT TISSUES: Changes of recent midline laparotomy. Additionally be laparoscopic tract in the right daniel abdomen. IMPRESSION: Postoperative changes of right hemicolectomy with focal fluid rim enhancing collection abutting the resection site in the right upper quadrant with adjacent distended/dilated hyperemic loops small and large bowel as well as pericholecystic fluid thickening all likely reactive secondary to infected fluid collection with adjacent inflammatory stranding. No discrete transition point. Fluid collection measures approximately 38 x 28 millimeters. Please note that all CT scans at this facility use dose modulation, iterative reconstruction, and/or weight-based dosing when appropriate to reduce radiation dose to as low as reasonably achievable. Dictated by Alexey Diaz MD @ 02/18/2022 6:00:55 PM (Electronically Signed)
[2022-02-18] MEDS: KETOROLAC 15 MG/ML inj IVP (18:42)
[2022-02-18] MEDS: ACETAMINOPHEN 325 MG TABLET PO (18:42)
[2022-02-18] MEDS: CITALOPRAM HYDROBROMIDE 20 MG TABLET PO (21:10)
[2022-02-18] MEDS: PRAVASTATIN 80 MG TABLET 1 EACH PO (21:18)
--- NOTE | 2022-02-18 22:43 | PC.NURSE ---
Shift [id number]- Patient rates pain at 3/10 throughout shift, noting abdominal pressure this afternoon that he states dissipated by this evening. He is reluctant to advance diet and only requests popsicle. He is encouraged to walk, which he is agreeable to. Wound dressing performed, patient tolerated well. Bowel sounds are active. TPN is returned to run at 80mLs/hr this afternoon.
--- NOTE | 2022-02-18 23:26 | PC.NURSE ---
After walk just now, patient had BM incontinence in brief- per DRE. Patient is now also attempting to stool on toilet. Oncoming RN alerted.
[2022-02-19] VITALS (14 sets, daily range): BP systolic 99–136; BP diastolic 58–91; PULSE 85–101; RESP 16–28; TEMP 36.6–38.7; O2SAT 95–100
[2022-02-19] MEDS: 0.9 % SODIUM CHLORIDE 1000 ml 1,000 ML 500 ML IV (00:24)
[2022-02-19] MEDS: AA 5 %/CALCIUM/LYTES/DEXT 20 % 2,000 ML 80 ML IVPB ×2 (00:34→18:37)
[2022-02-19] MEDS: PIPERACILLIN/TAZOBACTAM 3.375 GM in 0.9 % SODIUM CHLORIDE Mini-bag 100 ML IVPB ×4 (06:06→23:59)
--- NOTE | 2022-02-19 06:34 | PC.NURSE ---
Shift note: Pt rates pain 1-2/10, declined any pain medications. No c/o nausea. BPs in 90ies and pt reports dizziness. MD was notified and IV bolus administered, BPs after in 100s.
[2022-02-19 07:08] LABS: Basophils Absolute Auto 0.03 K/uL (0.00-0.30); Basophils Percent Auto 0.3 % (0.0-3.0); Eosinophils Absolute Auto 0.19 K/uL (0.00-0.50); Eosinophils Percent Auto 1.9 % (0.0-7.0); Hematocrit 29.8 % (37.0-53.0); Hemoglobin* 9.6 gm/dL (13.5-17.5); Immature Granulocytes Abs Auto 0.26 K/uL (0.00-0.30); Lymphocytes Percent Auto 13.1 % (20-44); Mean Corpuscular HGB Conc 32 gm/dL (32-36); Mean Corpuscular Hemoglobin 30 pg (26-34); Mean Corpuscular Volume 92 fL (80-100); Monocytes Percent Auto 10.2 % (0.0-11.0); Neutrophils Absolute Auto 7.28 K/uL (1.7-7.0); Neutrophils Percent Auto 71.9 % (42.0-72.0); Platelet Count* 536 K/uL (140-440); RDW Coefficient of Variation % 14.2 % (11.5-15.5); Red Blood Count 3.24 m/uL (4.30-5.90); White Blood Count* 10.12 K/uL (4.50-11.00)
[2022-02-19 07:11] LABS: Slide Review Reflex No
[2022-02-19 07:32] LABS: INR 0.98 (0.91-1.10); Prothrombin Time 13.4 Seconds
[2022-02-19 07:33] LABS: Chloride* 99 mmol/L (96-114)
[2022-02-19 07:34] LABS: Potassium* 4.1 mmol/L (3.6-5.1); Sodium* 133 mmol/L (135-149)
[2022-02-19 07:36] LABS: Creatinine* 0.6 mg/dL (0.5-1.5); Est. Creatinine Clearance* 72.56; Estimated Glomerular Filt Rate 107 ml/min
[2022-02-19 07:37] LABS: Blood Urea Nitrogen* 25 mg/dL (7-30); Carbon Dioxide* 27 mmol/L (20-32); Glucose* 111 mg/dL (60-115); Phosphorus* 3.7 mg/dL (2.5-4.5); Triglycerides* 95 mg/dL (40-149)
[2022-02-19 07:38] LABS: Calcium* 8.2 mg/dL (8.4-10.6); Magnesium* 2.2 mg/dL (1.5-2.6)
[2022-02-19] MEDS: OMEPRAZOLE 20 MG CAPSULE DR PO (08:48)
--- NOTE | 2022-02-19 10:07 | P.GSPN_ITS ---
Subjective Subjective Date Seen: 02/19/22 Interval history: Patient had a loose bowel movement yesterday and today in the morning. He denies abdominal pain. However he continues to burp. He ambulated yesterday. He did not take Much for clear liquid diet yesterday. Exam Narrative: Exam Narrative: Abdomen: Soft, mildly distended, not tender to palpation, midline laparotomy incision with no surrounding erythema. The open areas were repacked today in the morning. The right paramedian incision was not re-checked since the dressing was changed yesterday. Const: Vital Signs, click to edit/add: Vital Signs - 24 hr 02/18/22 13:00 02/18/22 15:15 02/18/22 15:15 Temperature 98 F 98 F Pulse Rate [Pulse Oximeter] 87 94 Respiratory Rate 20 18 Blood Pressure [Le ft Arm] 106/61 97/77 Pulse Oximetry 96 98 98 Oxygen Delivery Me thod Room Air Room Air Room Air Oxygen Flow Rate Fraction of Inspir ed Oxygen 02/18/22 19:09 02/18/22 23:00 02/19/22 00:00 Temperature 98.1 F 98 F Pulse Rate [Pulse Oximeter] 86 86 Respiratory Rate 16 16 Blood Pressure [Le ft Arm] 126/78 90/61 Pulse Oximetry 97 97 97 Oxygen Delivery Me thod Room Air Room Air Room Air Oxygen Flow Rate Fraction of Inspir ed Oxygen 02/19/22 03:00 02/19/22 07:00 02/19/22 07:00 Temperature 97.8 F 98 F Pulse Rate [Pulse Oximeter] 86 85 85 Respiratory Rate 18 18 18 Blood Pressure [Le ft Arm] 109/66 110/68 Pulse Oximetry 99 99 Oxygen Delivery Me thod Room Air Room Air Oxygen Flow Rate 1 Fraction of Inspir ed Oxygen 16 02/19/22 08:00 Temperature Pulse Rate [Pulse Oximeter] Respiratory Rate Blood Pressure [Le ft Arm] Pulse Oximetry Oxygen Delivery Me thod Room Air Oxygen Flow Rate Fraction of Inspir ed Oxygen Progress Note: A&P Assessment and plan (1) Status post exploratory laparotomy: Status: Acute Assessment and Plan: 66-year-old male s/p exploratory laparotomy and revision of ileocolic anastomosis POD 11. We obtained a CT scan yesterday that showed a small fluid collection 3.8 x 2.8 cm in the right upper quadrant and inflammatory changes in the right upper quadrant. Patient's anastomosis appears to be patent on CT. However he does have dilated loops of small bowel. I discussed this CT scan with Radiology and they were concerned that the small fluid collection is a developing intra- abdominal abscess. They felt that the IR drainage would be difficult. Patient was placed back on Zosyn and we will add vancomycin today to broaden the coverage. Since patient's small-bowel continues to be dilated, will place the NG tube back in. Patient is requesting sedation for NG tube placement. Patient's inflammation in the right upper quadrant and fluid collection could certainly contribute to his ileus. His magnesium, phosphorus, and potassium on normal and she would not be the cause of his ileus. I think his Parkinson's disease still plays a role in his decreased motility. He will continue NPO with TPN.
[2022-02-19] MEDS: SODIUM CHLORIDE 0.9 % (FLUSH) 10 ML SYRINGE 5 ML IVF ×2 (10:34→21:27)
[2022-02-19] MEDS: MIDAZOLAM HCL 1 MG/ML inj 2 MG IVP (11:15)
--- NOTE | 2022-02-19 12:09 | CRLHL7_ITS ---
For Patients: As a result of the Century Cures Act, medical imaging exams and procedure reports are released immediately into your electronic medical record. You may view this report before your referring provider. If you have questions, please contact your health care provider. INDICATION: Tube placement. COMPARISON: CT 18 February. IMPRESSION: The tip of the nasogastric tube at the hiatus likely in the distal patulous esophagus. Course of the tube through the thorax is serpiginous. Advancement recommended. Dictated by Grey Hassan MD @ 02/19/2022 1:20:38 PM (Electronically Signed)
[2022-02-19] MEDS: ENOXAPARIN 40 MG/0.4 ML INJ SUBCUT (13:58)
--- NOTE | 2022-02-19 14:29 | PM.IMPN1 ---
Progress Note: A&P Assessment and plan (1) Status post exploratory laparotomy: Problem details: Ongoing evidence of ileus. Per surgery put NG back in place. Status: Acute (2) SBO (small bowel obstruction): Problem details: Appears more likely ileus rather than small bowel obstruction. No transition point on CT Status: Acute (3) Postoperative ileus: Problem details: NG. Status: Acute (4) Malnutrition: Problem details: Continue on TPN per surgery. Advance diet as tolerated Status: Acute (5) Protein-calorie malnutrition, severe: Problem details: Continue TPN Status: Acute (6) Parkinson's disease: Problem details: Continue physical therapy and encourage mobility here in the hospital Status: Chronic (7) Weakness: Problem details: Likely related to protein calorie malnutrition with baseline underlying physical deconditioning. PICC line in place. TPN running. Status: Acute (8) Physical deconditioning: Problem details: Continue therapy and encourage mobility. Status: Acute (9) Superficial incisional infection of surgical site: Problem details: Surgical incision appears better but intra-abdominal fluid collection is concerning for infection. Zosyn and vancomycin Status: Acute Plan Continue in hospital for management of ileus and infection intravenous nutrition Time Spent With Patient Total time spent: Total time spent today is 45 minutes, 30 minutes in coordination of care discussed with patient and other providers management of ileus, intra-abdominal infection, nutrition. Subjective Date Seen: 02/19/22 Interval history: 66-year-old male seen in followup of ileus and malnutrition and Parkinson's disease. Yesterday he was a little more distended. He was having more abdominal bloating. Less bowel activity. Initial imaging showed dilated loops of small bowel concerning for obstruction or ileus. CT scanning showed no point of obstruction but did show fluid in the right upper quadrant which was possibly inflammatory or infected. Antibiotics which has been stopped yesterday were restarted. He has not had any fever. Vitals have otherwise been normal. Patient reports feeling better today than he did yesterday. He reports bloating is better and pain is better. He has had a bowel movement this morning any is passing gas. Exam Narrative: Exam Narrative: He is alert and appears in no distress. Breathing is unlabored. Respirations are clear to auscultation. Cardiovascular: S1, S2, regular rate and rhythm. Abdomen: Bowel sounds active. Abdomen is soft with diffuse mild tenderness. Abdominal incisions without significant erythema small amount of serous drainage. Extremities without edema. Const: Vital Signs, click to edit/add: Vital Signs - 24 hr 02/18/22 15:15 02/18/22 15:15 02/18/22 19:09 Temperature 98 F 98.1 F Pulse Rate [Pulse Oximeter] 94 86 Respiratory Rate 18 16 Blood Pressure [Le ft Arm] 97/77 126/78 Pulse Oximetry 98 98 97 Oxygen Delivery Me thod Room Air Room Air Room Air Oxygen Flow Rate Fraction of Inspir ed Oxygen 02/18/22 23:00 02/19/22 00:00 02/19/22 03:00 Temperature 98 F 97.8 F Pulse Rate [Pulse Oximeter] 86 86 Respiratory Rate 16 18 Blood Pressure [Le ft Arm] 90/61 109/66 Pulse Oximetry 97 97 99 Oxygen Delivery Me thod Room Air Room Air Room Air Oxygen Flow Rate Fraction of Inspir ed Oxygen 02/19/22 07:00 02/19/22 07:00 02/19/22 08:00 Temperature 98 F Pulse Rate [Pulse Oximeter] 85 85 Respiratory Rate 18 18 Blood Pressure [Le ft Arm] 110/68 Pulse Oximetry 99 Oxygen Delivery Me thod Room Air Room Air Oxygen Flow Rate 1 Fraction of Inspir ed Oxygen 16 02/19/22 11:20 02/19/22 11:00 02/19/22 11:25 Temperature 97.9 F Pulse Rate [Pulse Oximeter] 88 87 91 Respiratory Rate 16 18 16 Blood Pressure [Le ft Arm] 121/73 113/73 120/73 Pulse Oximetry 100 99 99 Oxygen Delivery Me thod Room Air Room Air Room Air Oxygen Flow Rate 1 Fraction of Inspir ed Oxygen 16 02/19/22 11:30 02/19/22 11:40 02/19/22 11:45 Temperature Pulse Rate [Pulse Oximeter] 89 88 86 Respiratory Rate 16 16 16 Blood Pressure [Le ft Arm] 117/72 126/74 127/74 Pulse Oximetry 98 96 98 Oxygen Delivery Me thod Room Air Room Air Room Air Oxygen Flow Rate Fraction of Inspir ed Oxygen 02/19/22 11:50 Temperature Pulse Rate [Pulse Oximeter] 89 Respiratory Rate 16 Blood Pressure [Le ft Arm] 114/72 Pulse Oximetry 97 Oxygen Delivery Me thod Room Air Oxygen Flow Rate Fraction of Inspir ed Oxygen Documenting provider has reviewed patient's vital signs: yes Labs Labs: Laboratory Results - last 24 hr 02/19/22 02/19/22 02/19/22 05:50 05:50 05:50 WBC 10.12 RBC 3.24 L Hgb 9.6 L Hct 29.8 L MCV 92 MCH 30 MCHC 32 RDW Coeff of Latoya 14.2 Plt Count 536 H Neut % (Auto) 71.9 Lymph % (Auto) 13.1 L [place] % (Auto) 10.2 Eos % (Auto) 1.9 Baso % (Auto) 0.3 Neut # (Auto) 7.28 H Lymph # (Auto) 1.30 [place] # (Auto) 1.00 H Eos # (Auto) 0.19 Baso # (Auto) 0.03 Abs Immat Gran (auto) 0.26 INR 0.98 Sodium 133 L Potassium 4.1 Chloride 99 Carbon Dioxide 27 BUN 25 Creatinine 0.6 Estimated Creat Clear 72.56 Estimated GFR 107 Glucose 111 Calcium 8.2 L Phosphorus 3.7 Magnesium 2.2 Triglycerides 95
--- NOTE | 2022-02-19 14:35 | CRLHL7_ITS ---
For Patients: As a result of the Century Cures Act, medical imaging exams and procedure reports are released immediately into your electronic medical record. You may view this report before your referring provider. If you have questions, please contact your health care provider. HISTORY: NG tube placement. COMPARISON: 02/19/2022 at 12:43 p.m. FINDINGS: Two supine views of the abdomen and pelvis. The NG tube is looped in the upper esophagus with the tip in the distal esophagus. The NG tube is not in the stomach. Dictated by Karin Mayer MD @ 02/19/2022 3:33:17 PM (Electronically Signed)
--- NOTE | 2022-02-19 15:02 | CRLHL7_ITS ---
For Patients: As a result of the Century Cures Act, medical imaging exams and procedure reports are released immediately into your electronic medical record. You may view this report before your referring provider. If you have questions, please contact your health care provider. Indication: Nasogastric tube placement Technique: A single view of the chest was acquired Comparison: An abdomen radiograph from 3:09 p.m.. This study is from 08/08 2 p.m. Findings: A nasogastric tube follows an unusual serpiginous course through the central thorax terminating in the region of the GE junction. I presume this is within a tortuous and dilated esophagus and might be within a hiatal hernia sac. The tube does not terminate below the diaphragm. Impression: As above Dictated by Eduardo Peoples MD @ 02/19/2022 3:30:09 PM (Electronically Signed)
--- NOTE | 2022-02-19 16:24 | CRLHL7_ITS ---
For Patients: As a result of the Century Cures Act, medical imaging exams and procedure reports are released immediately into your electronic medical record. You may view this report before your referring provider. If you have questions, please contact your health care provider. Indication: NG tube placement. Technique: Chest 1 view. Comparison: 02/19/2022. Findings/Impression: Cardiovascular and mediastinum: Heart size and vasculature are normal in caliber and appearance. Lungs and pleural space: Lungs are clear. No sign of infiltrate or mass. No sign of pleural effusion. No pneumothorax. Bones and soft tissues: NG-tube tip is in the distal esophagus with the midportion coiled in the upper mediastinum. The tube will need to be retracted and repositioned. Dictated by Jorge L Mosley MD @ 02/19/2022 7:16:16 PM (Electronically Signed)
[2022-02-19] MEDS: ACETAMINOPHEN 325 MG TABLET PO (16:39)
--- NOTE | 2022-02-19 18:29 | PC.NURSE ---
Dr. Olson notified of AM blood culture positive.
--- NOTE | 2022-02-19 18:44 | PC.NURSE ---
Updated Dr. Mays (surgeon) on last XR for NG placement. Orders to d/c NG, ensure Bisacodyl suppositories daily, and have patient chew gum.
--- NOTE | 2022-02-19 18:45 | PC.NURSE ---
Also, Dr. Mays informed of positive blood culture and fever/rigors this afternoon. Dr. Olson previously notified.
--- NOTE | 2022-02-19 19:16 | PC.NURSE ---
End of shift-- Very pleasant and cooperative, alert and oriented patient. VSS. He denied pain. This afternoon, pt had episode of shaking that lasted from 5-10 minutes. Shortly thereafter, pt's temp was 101.6F axillary. Pt was given Tylenol with relief. SPO2 maintained >94% on RA. Per Dr. Mays, attempted to place NG. Pt was given Versed prior per MD order. 3 RNs and RT were at bedside throughout procedure and pt was monitored continuously. Per Xray following placement, tube required advancing. Attempted multiple times to advance tube, but was unable to advance it without coiling. Dr. Mays notified and NG was removed. LS CTA. BS + x4 quadrants, though tympanic in upper left quadrant. He denied nausea, but has had nothing by mouth. Pt has had 2x large, liquid, yellowish brown BMs today. TPN has been running at 80ml/hour today. He has adequate urine output. Pt was up to the bathroom with assist of 1-2, belt and walker twice today and tolerated it fair. He refused to walk farther. Report to JAMAL Kaba and all questions were answered.
[2022-02-19] MEDS: bisacodyL 10 MG SUPP.RECT PR (20:02)
[2022-02-19] MEDS: PRAVASTATIN 80 MG TABLET 1 EACH PO (21:25)
[2022-02-19] MEDS: CITALOPRAM HYDROBROMIDE 20 MG TABLET PO (21:26)
[2022-02-20] VITALS (11 sets, daily range): BP systolic 114–136; BP diastolic 73–83; PULSE 82–88; RESP 18–20; TEMP 36.4–36.8; O2SAT 96–100
[2022-02-20] MEDS: 0.9 % SODIUM CHLORIDE 250 ml IV (02:31)
[2022-02-20] MEDS: KETOROLAC 15 MG/ML inj IVP (02:31)
[2022-02-20] MEDS: HYDROmorphone 0.5 mg/0.5 ml inj IVP (02:57)
[2022-02-20] MEDS: PIPERACILLIN/TAZOBACTAM 3.375 GM in 0.9 % SODIUM CHLORIDE Mini-bag 100 ML IVPB ×3 (06:27→18:18)
--- NOTE | 2022-02-20 06:39 | PC.NURSE ---
No new neuro changes. Vitals stable. Afebrile. Assist of one with ambulation. TPN infusing through the PICC line; no complications noted. No signs of hyperglycemia noted. Blood sugar checks done as ordered and noted to be stable. Loose stools noted followed with abdominal pain thta was managed by repositioning and PRN medications. No further concerns for the night noted
[2022-02-20 07:22] LABS: Chloride* 101 mmol/L (96-114); Sodium* 135 mmol/L (135-149)
[2022-02-20 07:25] LABS: Blood Urea Nitrogen* 22 mg/dL (7-30); Carbon Dioxide* 27 mmol/L (20-32); Creatinine* 0.6 mg/dL (0.5-1.5); Est. Creatinine Clearance* 70.64; Estimated Glomerular Filt Rate 107 ml/min; Glucose* 126 mg/dL (60-115)
[2022-02-20 07:26] LABS: Calcium* 7.9 mg/dL (8.4-10.6)
[2022-02-20] MEDS: OMEPRAZOLE 20 MG CAPSULE DR PO (07:32)
--- NOTE | 2022-02-20 08:27 | PM.GSPN ---
Subjective Subjective Date Seen: 02/20/22 Interval history: Patient had 1 episode of fever 101.6 and rigors. Blood cultures were obtained in those came back with Gram-positive cocci in clusters. Patient had some abdominal pain yesterday and had to liquid stools. NG tube was placed but it kept coiling in a long tortuous esophagus. After 3 attempts to adjusted, the NG was removed. Patient is not passing gas and has been NPO. Exam Narrative: Exam Narrative: Abdomen: Abdomen is soft, mildly distended, not tender to palpation or percussion throughout the abdomen. The right paramedian ileostomy incision dressing was changed with Hydrofera Blue. Three open areas of the midline laparotomy were repacked with iodoform gauze. The midline incision has no surrounding erythema. The drainage on removed gazue serosanguineous. Const: Vital Signs, click to edit/add: Vital Signs - 24 hr 02/19/22 11:20 02/19/22 11:00 02/19/22 11:25 Temperature 97.9 F Pulse Rate [Pulse Oximeter] 88 87 91 Respiratory Rate 16 18 16 Blood Pressure [Le ft Arm] 121/73 113/73 120/73 Pulse Oximetry 100 99 99 Oxygen Delivery Me thod Room Air Room Air Room Air Oxygen Flow Rate 1 Fraction of Inspir ed Oxygen 16 02/19/22 11:30 02/19/22 11:40 02/19/22 11:45 Temperature Pulse Rate [Pulse Oximeter] 89 88 86 Respiratory Rate 16 16 16 Blood Pressure [Le ft Arm] 117/72 126/74 127/74 Pulse Oximetry 98 96 98 Oxygen Delivery Tx thod Room Air Room Air Room Air Oxygen Flow Rate Fraction of Inspir ed Oxygen 02/19/22 11:50 02/19/22 15:00 02/19/22 15:30 Temperature 101.6 F H Pulse Rate [Pulse Oximeter] 89 89 101 H Respiratory Rate 16 16 28 H Blood Pressure [Le ft Arm] 114/72 136/91 H Pulse Oximetry 97 96 Oxygen Delivery Me thod Room Air Room Air Oxygen Flow Rate Fraction of Inspir ed Oxygen 02/19/22 16:00 02/19/22 19:00 02/19/22 23:00 Temperature 99.8 F H Pulse Rate [Pulse Oximeter] 95 96 Respiratory Rate 20 20 Blood Pressure [Le ft Arm] 99/58 L Pulse Oximetry 95 Oxygen Delivery Me thod Room Air Room Air Oxygen Flow Rate Fraction of Inspir ed Oxygen 02/19/22 23:00 02/20/22 00:00 02/20/22 03:00 Temperature 98.2 F 98.2 F Pulse Rate [Pulse Oximeter] 87 82 Respiratory Rate 20 20 20 Blood Pressure [Le ft Arm] 106/66 114/73 Pulse Oximetry 96 96 97 Oxygen Delivery Me thod Room Air Room Air Room Air Oxygen Flow Rate Fraction of Inspir ed Oxygen 02/20/22 07:33 02/20/22 07:00 Temperature 97.5 F L Pulse Rate [Pulse Oximeter] 85 85 Respiratory Rate 20 20 Blood Pressure [Le ft Arm] 120/79 Pulse Oximetry 99 Oxygen Delivery Me thod Room Air Oxygen Flow Rate Fraction of Inspir ed Oxygen Progress Note: A&P Assessment and plan (1) Status post exploratory laparotomy: Problem details: Patient became septic yesterday with positive blood cultures with Gram-positive cocci in clusters. Patient was already placed on vanco yesterday morning. Will continue vanco and Zosyn for now. Given his fluid collection in the right upper quadrant it is most likely the source of his gram-positive cocci in blood stream. Patient does not have peritoneal signs and has stable vitals. We will continue NPO and TPN. Patient was encouraged to ambulate as much as possible. Status: Acute
[2022-02-20] MEDS: SODIUM CHLORIDE 0.9 % (FLUSH) 10 ML SYRINGE 5 ML IVF ×2 (09:42→21:03)
[2022-02-20] MEDS: bisacodyL 10 MG SUPP.RECT PR (10:50)
--- NOTE | 2022-02-20 15:28 | P.IMPN_ITS ---
Progress Note: A&P Assessment and plan (1) Status post exploratory laparotomy: Problem details: Patient became septic yesterday with positive blood cultures with Gram-positive cocci in clusters. Patient was already placed on vanco yesterday morning. Will continue vanco and Zosyn for now. Given his fluid collection in the right upper quadrant it is most likely the source of his gram-positive cocci in blood stream. Patient does not have peritoneal signs and has stable vitals. We will continue NPO and TPN. Patient was encouraged to ambulate as much as possible. Status: Acute (2) SBO (small bowel obstruction): Problem details: Appears more likely ileus rather than small bowel obstruction. No transition point on CT Status: Acute (3) Postoperative ileus: Problem details: NG. Status: Acute (4) Malnutrition: Problem details: Continue on TPN per surgery. Status: Acute (5) Protein-calorie malnutrition, severe: Problem details: Continue TPN Status: Acute (6) Parkinson's disease: Problem details: Continue physical therapy and encourage mobility here in the hospital Status: Chronic (7) Weakness: Problem details: Likely related to protein calorie malnutrition with baseline underlying physical deconditioning. PICC line in place. TPN running. Status: Acute (8) Physical deconditioning: Problem details: Continue therapy and encourage mobility. Status: Acute (9) Superficial incisional infection of surgical site: Problem details: Surgical incision appears better but intra-abdominal fluid collection is con cerning for infection. Zosyn and vancomycin Status: Acute Plan Continue in hospital for intravenous I antibiotics, intravenous feedings, ongoing monitoring of infection an ileus. Time Spent With Patient Total time spent: Total time spent today is 35 minutes, 30 minutes in coordination of care and discussing with patient and other providers management of infection, nutrition and rehabilitation Subjective Date Seen: 02/20/22 Interval history: 66-year-old male seen in followup of postoperative ileus, malnutrition and postoperative fever. Yesterday patient spiked a fever. Had positive blood cultures. Antibiotic treatment was broadened to vancomycin plus Zosyn. NG tube is out. He reports feeling better today. Less pain and nausea. He is not aware of any more fever and chills today. No shortness of breath or cough. Exam Narrative: Exam Narrative: He is alert and appears in no distress. Speech is normal. He is oriented to his circumstances. Respirations are clear to auscultation. Cardiovascular: S1, S2, regular rate and rhythm. No murmur gallop or rub. Abdomen: Bowel sounds are present. Abdomen has mild distention. He has no significant tenderness. Serosanguineous fluid on his dressings. No extremity edema. No rash. Const: Vital Signs, click to edit/add: Vital Signs - 24 hr 02/19/22 15:30 02/19/22 16:00 02/19/22 19:00 Temperature 101.6 F H 99.8 F H Pulse Rate [Pulse Oximeter] 101 H 95 Respiratory Rate 28 H 20 Blood Pressure [Le ft Arm] 136/91 H 99/58 L Pulse Oximetry 96 95 Oxygen Delivery Me thod Room Air Room Air Room Air 02/19/22 23:00 02/19/22 23:00 02/20/22 00:00 Temperature 98.2 F Pulse Rate [Pulse Oximeter] 96 87 Respiratory Rate 20 20 20 Blood Pressure [Le ft Arm] 106/66 Pulse Oximetry 96 96 Oxygen Delivery Tn thod Room Air Room Air 02/20/22 03:00 02/20/22 07:33 02/20/22 07:00 Temperature 98.2 F 97.5 F L Pulse Rate [Pulse Oximeter] 82 85 85 Respiratory Rate 20 20 20 Blood Pressure [Le ft Arm] 114/73 120/79 Pulse Oximetry 97 99 Oxygen Delivery Tn thod Room Air Room Air 02/20/22 08:00 02/20/22 11:53 Temperature 98.0 F Pulse Rate [Pulse Oximeter] 83 Respiratory Rate 20 18 Blood Pressure [Le ft Arm] 118/75 Pulse Oximetry 99 99 Oxygen Delivery Me thod Room Air Room Air Documenting provider has reviewed patient's vital signs: yes Labs Labs: Laboratory Results - last 24 hr 02/20/22 06:18 Sodium 135 Potassium 4.0 Chloride 101 Carbon Dioxide 27 BUN 22 Creatinine 0.6 Estimated Creat Clear 70.64 Estimated GFR 107 Glucose 126 H Calcium 7.9 L
[2022-02-20] MEDS: ENOXAPARIN 40 MG/0.4 ML INJ SUBCUT (15:35)
[2022-02-20] MEDS: AA 5 %/CALCIUM/LYTES/DEXT 20 % 2,000 ML 80 ML IVPB (18:17)
--- NOTE | 2022-02-20 19:29 | PC.NURSE ---
End of shift-- Very pleasant and cooperative, alert and oriented patient. VSS and pt is afebrile. SPO2 maintained >94% on RA. He denied any pain. BS+ x4, pt passed flatus and had 3x liquid BMs today. He denied any nausea and tolerated sips of ensure clear without difficulty. LS CTA. He ambulated in hallway twice today and to with assist of 1, belt and a walker and tolerated it well. Report to JAMAL Kaba.
[2022-02-20] MEDS: CITALOPRAM HYDROBROMIDE 20 MG TABLET PO (21:01)
[2022-02-20] MEDS: PRAVASTATIN 80 MG TABLET 1 EACH PO (21:03)
[2022-02-20 21:38] LABS: Prealbumin 12.3 mg/dL (20.0-40.0)
[2022-02-21] VITALS (10 sets, daily range): BP systolic 113–132; BP diastolic 69–80; PULSE 80–96; RESP 16–28; TEMP 36.3–36.8; O2SAT 96–100
[2022-02-21] MEDS: PIPERACILLIN/TAZOBACTAM 3.375 GM in 0.9 % SODIUM CHLORIDE Mini-bag 100 ML IVPB ×4 (00:47→18:59)
[2022-02-21] MEDS: 0.9 % SODIUM CHLORIDE 250 ml IV ×2 (00:50→19:01)
[2022-02-21] MEDS: HYDROmorphone 0.5 mg/0.5 ml inj IVP ×2 (01:28→16:26)
[2022-02-21] MEDS: OMEPRAZOLE 20 MG CAPSULE DR PO (06:49)
--- NOTE | 2022-02-21 07:18 | PC.NURSE ---
Alert and orientedx4. Vitals stable. Afebrile. Noted to have pain post BM; Dilaudid administered x1 for pain management. PICC line intact and patent. Monitored for hyperglycemia and no signs noted. Blood sugar stable. Assist of one with ambulation using awalker. Using bedside commode and urinal at night. No concenrs noted
[2022-02-21 07:43] LABS: Albumin* 2.7 g/dL (3.3-5.0); Chloride* 100 mmol/L (96-114)
[2022-02-21 07:44] LABS: Potassium* 4.1 mmol/L (3.6-5.1); Sodium* 132 mmol/L (135-149)
[2022-02-21 07:46] LABS: Aspartate Amino Transferase* 37 U/L (12-35); Bilirubin Total* 0.3 mg/dL (0.1-1.5); Carbon Dioxide* 27 mmol/L (20-32); Creatinine* 0.5 mg/dL (0.5-1.5); Est. Creatinine Clearance* 70.64; Estimated Glomerular Filt Rate 113 ml/min; Total Protein* 5.4 g/dL (6.0-8.3)
[2022-02-21 07:47] LABS: Alanine Aminotransferase* 11 U/L (4-50); Alkaline Phosphatase* 199 U/L (40-150); Blood Urea Nitrogen* 20 mg/dL (7-30); Calcium* 7.9 mg/dL (8.4-10.6); Glucose* 127 mg/dL (60-115)
[2022-02-21] MEDS: bisacodyL 10 MG SUPP.RECT PR (09:16)
--- NOTE | 2022-02-21 10:02 | P.GSPN_ITS ---
Subjective Subjective Date Seen: 02/21/22 Interval history: Patient was a febrile yesterday. He continued to pass gas and had 2 good bowel movements. He did have suppository yesterday. He denies any nausea or vomiting. He ambulated 3 times. He had 2 half boxes of clear Ensures throug hout the day. Exam Narrative: Exam Narrative: Abdomen: Soft, mildly distended, not tender to palpation. The right paramedian incision dressing was changed to has Hydrofera blue. The superior opening of the midline laparotomy was also changed today with Hydrofera Blue. The fascia in this incision opening is soft on palpation when the dressing is changed. The 2 inferior openings of the midline laparotomy were changed with iodoform Nu Gauze. The drainage on the removed dressings was serosanguineous. Const: Vital Signs, click to edit/add: Vital Signs - 24 hr 02/20/22 11:53 02/20/22 15:33 02/20/22 16:13 Temperature 98.0 F 98.2 F Pulse Rate [Pulse Oximeter] 83 88 Respiratory Rate 18 18 Blood Pressure [Le ft Arm] 118/75 127/73 Pulse Oximetry 99 100 100 Oxygen Delivery Me thod Room Air Room Air Room Air 02/20/22 15:00 02/20/22 19:00 02/20/22 23:00 Temperature 98.1 F Pulse Rate [Pulse Oximeter] 88 86 86 Respiratory Rate 18 18 18 Blood Pressure [Le ft Arm] 128/82 Pulse Oximetry 100 Oxygen Delivery Me thod Room Air 02/20/22 23:00 02/21/22 00:00 02/21/22 03:00 Temperature 98.1 F 98.2 F Pulse Rate [Pulse Oximeter] 85 80 Respiratory Rate 18 18 Blood Pressure [Le ft Arm] 136/83 130/77 Pulse Oximetry 100 100 96 Oxygen Delivery Me thod Room Air Room Air Room Air 02/21/22 07:00 02/21/22 07:00 02/21/22 08:00 Temperature 98 F Pulse Rate [Pulse Oximeter] 92 92 Respiratory Rate 28 H 28 H Blood Pressure [Le ft Arm] 127/80 Pulse Oximetry 98 98 Oxygen Delivery Me thod Room Air Room Air Progress Note: A&P Assessment and plan (1) Status post exploratory laparotomy: Problem details: 66-year-old male s/p exposure laparotomy and revision of ileocolic anastomosis POD 13. Patient continues to have postoperative ileus however he is passing gas and had liquid stools. He is getting daily suppositories. I will continue daily suppositories mostly to stimulate his large intestine. His abdomen is mildly distended and I do not think he is ready to advance his diet. Will plan on repeating his abdominal CT on Monday to evaluate the right upper quadrant fluid collection. Patient is on Zosyn and vancomycin. He did not have any additional fevers. His blood culture grew Staph epidermidis. This could be a contaminant but could also come from his PICC line. I will discuss this further with the hospitalist if we should remove his PICC line and give him a PICC line holiday. Patient will continue to ambulate. Status: Acute (2) DRE (acute kidney injury): Problem details: Suspect due to antibiotics. Switch to vanco plus ertapenem. Pharmacy to consult on vanco dosing. Status: Acute
--- NOTE | 2022-02-21 11:03 | NUTR.NU ---
Nutrition Follow Up: Patient admitted with SBO, requiring TPN. TPN at goal on 02/07/22. Diet advanced 02/18/22 patient did not tolerate regular diet order and TPN resumed to previous goal of 80 mL/hr x 24 hours with lipids 3x per week, providing 1920 mL fluid, 1900 kcal and 96 grams of protein to meet estimated nutrition needs calculated in 02/03 assessment. Weight at 02/03 assessment 150 pounds. Weight today 154.9 pounds, fluctuating 148.8 to 154.9 from 02/18 to today. No significant fluctuation in labs. Continue to monitor TPN and labs as well as diet advancement, tolerance and intake. Follow up as needed.
[2022-02-21] MEDS: ENOXAPARIN 40 MG/0.4 ML INJ SUBCUT (14:32)
--- NOTE | 2022-02-21 15:13 | P.IMPN_ITS ---
Progress Note: A&P Assessment and plan (1) Status post exploratory laparotomy: Problem details: 66-year-old male s/p exposure laparotomy and revision of ileocolic anastomosis POD 13. Patient continues to have postoperative ileus however he is passing gas and had liquid stools. He is getting daily suppositories. I will continue daily suppositories mostly to stimulate his large intestine. His abdomen is mildly distended and I do not think he is ready to advance his diet. Will plan on repe ating his abdominal CT on Monday to evaluate the right upper quadrant fluid collection. Patient is on Zosyn and vancomycin. He did not have any additional fevers. His blood culture grew Staph epidermidis. This could be a contaminant but could also come from his PICC line. I will discuss this further with the hospitalist if we should remove his PICC line and give him a PICC line holiday. Patient will continue to ambulate. Status: Acute (2) SBO (small bowel obstruction): Problem details: Appears more likely ileus rather than small bowel obstruction. No transition point on CT Status: Acute (3) Postoperative ileus: Problem details: Cautious use of clear liquids. Coordinate with surgery Status: Acute (4) Malnutrition: Problem details: Temporarily switch from TPN to peripheral nutrition with his PICC line out. New PICC line in 2 days if cultures are negative. Status: Acute (5) Protein-calorie malnutrition, severe: Problem details: Continue PPN then TPN once PICC line is back in Status: Acute (6) Parkinson's disease: Problem details: Continue physical therapy and encourage mobility here in the hospital Status: Chronic (7) Weakness: Problem details: Likely related to protein calorie malnutrition with baseline underlying physical deconditioning. PICC line in place. TPN running. Status: Acute (8) Physical deconditioning: Problem details: Continue therapy and encourage mobility. Status: Acute (9) Superficial incisional infection of surgical site: Problem details: Surgical incision appears better but intra-abdominal fluid collection is concerning for infection. Zosyn and vancomycin Status: Acute (10) Bacteremia associated with intravascular line: Problem details: Remove PICC line, culture and continue antibiotics and peripheral nutrition through a peripheral IV. Cultures are negative in 48 hours consider restarting PICC line and TPN Status: Acute Plan Continue in hospital for management of ileus, nutrition, infection, bacteremia. Time Spent With Patient Total time spent: Total time spent today is 45 minutes, 35 minutes in coordination care and discussing with patient other providers management of ileus, nutrition, infection. Subjective Date Seen: 02/21/22 Interval history: 66-year-old male seen in followup of postoperative ileus, malnutrition, fever, intra-abdominal infection. Patient reports continued to feel better today. He has had at least 1 daily episode of abdominal pain which resolves with medication and otherwise is not having significant abdominal pain. Still feels some bloating. Poor appetite. NG has been out and he has had minimal amounts of clear liquids which she has tolerated. He reports having liquid stools and passing gas. Not aware of any further fever. Cultures from 2 days ago showed Staph epidermidis in both cultures. Because of this I am going to act as if this is a true positive and not a contaminant. In this setting with the PICC line I am concerned that it could be associated with his PICC line so will remove his PICC line, culture it, and provide his nutrition and antibiotics through a peripheral IV in the meantime. Exam Narrative: Exam Narrative: He is alert and appears in no distress. Pleasant. Oriented. Respirations are clear to auscultation. Cardiovascular: S1, S2, regular rate and rhythm. Abdomen bowel sounds are present. Abdomen is soft he has no significant tenderness. Abdominal wounds with minimal drainage no significant erythema. Extremities without edema. Const: Vital Signs, click to edit/add: Vital Signs - 24 hr 02/20/22 15:33 02/20/22 16:13 02/20/22 19:00 Temperature 98.2 F 98.1 F Pulse Rate [Pulse Oximeter] 88 86 Respiratory Rate 18 18 Blood Pressure [Le ft Arm] 127/73 128/82 Pulse Oximetry 100 100 100 Oxygen Delivery Me thod Room Air Room Air Room Air 02/20/22 23:00 02/20/22 23:00 02/21/22 00:00 Temperature 98.1 F Pulse Rate [Pulse Oximeter] 86 85 Respiratory Rate 18 18 Blood Pressure [Le ft Arm] 136/83 Pulse Oximetry 100 100 Oxygen Delivery Me thod Room Air Room Air 02/21/22 03:00 02/21/22 07:00 02/21/22 07:00 Temperature 98.2 F 98 F Pulse Rate [Pulse Oximeter] 80 92 92 Respiratory Rate 18 28 H 28 H Blood Pressure [Le ft Arm] 130/77 127/80 Pulse Oximetry 96 98 Oxygen Delivery Me thod Room Air Room Air 02/21/22 08:00 02/21/22 11:00 Temperature 98.2 F Pulse Rate [Pulse Oximeter] 94 Respiratory Rate 16 Blood Pressure [Le ft Arm] 122/69 Pulse Oximetry 98 99 Oxygen Delivery Me thod Room Air Room Air Documenting provider has reviewed patient's vital signs: yes Labs Labs: Laboratory Results - last 24 hr 02/19/22 02/21/22 05:50 06:33 Sodium 132 L Potassium 4.1 Chloride 100 Carbon Dioxide 27 BUN 20 Creatinine 0.5 Estimated Creat Clear 70.64 Estimated GFR 113 Glucose 127 H Calcium 7.9 L Total Bilirubin 0.3 AST 37 H ALT 11 Alkaline Phosphatase 199 H Total Protein 5.4 L Albumin 2.7 L Prealbumin 12.3 L
[2022-02-21] MEDS: AA 4.25%/CALCIUM/LYTES/DEX 10% 2,000 ML 80 ML IVPB (15:42)
[2022-02-21] MEDS: KETOROLAC 15 MG/ML inj IVP (16:26)
--- NOTE | 2022-02-21 19:18 | PC.NURSE ---
End of Shift: Patient pleasant and cooperative. Patient vitally stable, lungs clear, BS WNL, abdomen mildly distended. Patient had 2 new iv's inserted in bilateral forearms, both patent and intact. PICC was removed, and PICC specimen was collected for lab to test for infection. Patient is 1 assist, walker, gb. Patient has rated pain once at most 7/10, toradol and 0.5 of dilauded was given. Patient had 2 small loose BM and patient is urinating. Patient is tolerating sips of clear enlive and water. All wounds changed this AM by MD, with small serosanguineous drainage. MD is to only change the right abdominal wound and top incisional wound, both have mepilex applied. RN is to change lower 2 medial wounds daily, with iodioform, gauze, then tape. Patient has walked the mark x3 today.
[2022-02-21] MEDS: MELATONIN 3 MG TABLET PO (21:28)
[2022-02-21] MEDS: CITALOPRAM HYDROBROMIDE 20 MG TABLET PO (21:28)
[2022-02-21] MEDS: SODIUM CHLORIDE 0.9 % (FLUSH) 10 ML SYRINGE 5 ML IVF (21:29)
[2022-02-21] MEDS: PRAVASTATIN 80 MG TABLET 1 EACH PO (21:29)
[2022-02-22] MEDS: PIPERACILLIN/TAZOBACTAM 3.375 GM in 0.9 % SODIUM CHLORIDE Mini-bag 100 ML IVPB ×5 (00:02→23:58)
[2022-02-22] MEDS: 0.9 % SODIUM CHLORIDE 250 ml IV ×3 (00:03→22:01)
[2022-02-22] MEDS: HYDROmorphone 0.5 mg/0.5 ml inj IVP ×2 (01:04→05:59)
[2022-02-22 03:00] VITALS: BP 114/60; PULSE 92; RESP 18; TEMP 36.4; O2SAT 94
[2022-02-22 05:59] LABS: C Reactive Protein* 3.6 mg/dL (0.5-1.0)
[2022-02-22] MEDS: OMEPRAZOLE 20 MG CAPSULE DR PO (06:55)
--- NOTE | 2022-02-22 06:58 | PC.NURSE ---
No new neuro changes. abd pain managed with Dilaudid. Loose stools x2 overnight followed with abd pain. Emptying bladder fine using a urinal. Left hand IV infiltrate last night; elevated and warm blankets utilized to reduce swelling. Swelling is currently resolved. Lipids and TPN infused overnight. Normal blood sugars. No concerns noted.
[2022-02-22 07:02] LABS: Chloride* 99 mmol/L (96-114); Potassium* 4.2 mmol/L (3.6-5.1); Sodium* 132 mmol/L (135-149)
[2022-02-22 07:05] LABS: Blood Urea Nitrogen* 34 mg/dL (7-30); Carbon Dioxide* 24 mmol/L (20-32); Creatinine* 1.1 mg/dL (0.5-1.5); Est. Creatinine Clearance* 66.39; Estimated Glomerular Filt Rate 75 ml/min
[2022-02-22 07:06] LABS: Calcium* 8.4 mg/dL (8.4-10.6); Glucose* 124 mg/dL (60-115)
[2022-02-22 08:00] VITALS: BP 109/79; PULSE 96; RESP 18; RESP 20; TEMP 36.8; O2SAT 90; O2SAT 99
[2022-02-22 11:00] VITALS: BP 136/68; PULSE 99; RESP 20; TEMP 36.6; O2SAT 99
--- NOTE | 2022-02-22 11:11 | P.GSPN_ITS ---
Subjective Subjective Date Seen: 02/22/22 Interval history: Patient has been afebrile. When asked, he states that he has been feeling better overall and states that he takes 2 steps forward and 1 step back. He states that the hiccups have come back and his nausea is slowly increasing. He has had bowel movements yesterday as well as this morning. He feels that overall he is getting much stronger. PICC line was removed yesterday. Exam Narrative: Exam Narrative: General: No acute distress. Patient remains cachectic appearing Abdomen: Distended. Nontender. Multiple open areas of his abdominal wounds without erythema. Const: Vital Signs, click to edit/add: Vital Signs - 24 hr 02/21/22 15:00 02/21/22 15:00 02/21/22 16:00 Temperature 97.5 F L Pulse Rate [Pulse Oximeter] 89 89 Respiratory Rate 18 18 Blood Pressure [Ri ght Arm] 113/71 Pulse Oximetry 97 97 Oxygen Delivery Me thod Room Air Room Air 02/21/22 19:00 02/21/22 23:00 02/21/22 23:00 Temperature 97.4 F L 97.6 F Pulse Rate [Pulse Oximeter] 88 96 96 Respiratory Rate 18 18 18 Blood Pressure [Ri ght Arm] 120/77 132/75 Pulse Oximetry 99 99 Oxygen Delivery Me thod Room Air Room Air 02/21/22 23:24 02/22/22 03:00 Temperature 97.6 F Pulse Rate [Pulse Oximeter] 92 Respiratory Rate 18 18 Blood Pressure [Ri ght Arm] 114/60 Pulse Oximetry 99 94 Oxygen Delivery Me thod Room Air Room Air Progress Note: A&P Assessment and plan (1) Bacteremia associated with intravascular line: Problem details: Remove PICC line, culture and continue antibiotics and peripheral nutrition through a peripheral IV. Cultures are negative in 48 hours consider restarting PICC line and TPN Status: Acute (2) Malnutrition: Problem details: Temporarily switch from TPN to peripheral nutrition with his PICC line out. New PICC line in 2 days if cultures are negative. Status: Acute (3) Superficial incisional infection of surgical site: Problem details: Surgical incision appears better but intra-abdominal fluid collection is concerning for infection. Zosyn and vancomycin Status: Acute (4) Postoperative ileus: Problem details: Cautious use of clear liquids. Coordinate with surgery Status: Acute (5) Protein-calorie malnutrition, severe: Problem details: Continue PPN then TPN once PICC line is back in Status: Acute (6) Physical deconditioning: Problem details: Continue therapy and encourage mobility. Status: Acute (7) Status post exploratory laparotomy: Problem details: 66-year-old male s/p exposure laparotomy and revision of ileocolic anastomosis POD 13. Patient continues to have postoperative ileus however he is passing gas and had liquid stools. He is getting daily suppositories. I will continue daily suppositories mostly to stimulate his large intestine. His abdomen is mildly distended and I do not think he is ready to advance his diet. Will plan on repeating his abdominal CT on Monday to evaluate the right upper quadrant fluid collection. Patient is on Zosyn and vancomycin. He did not have any add itional fevers. His blood culture grew Staph epidermidis. This could be a contaminant but could also come from his PICC line. I will discuss this further with the hospitalist if we should remove his PICC line and give him a PICC line holiday. Patient will continue to ambulate. Status: Acute (8) Anemia: Problem details: Stable Status: Acute (9) Hyponatremia: Problem details: Stable Status: Acute Plan The patient is a 66-year-old male postop day 14 status post laparotomy and revision of ileocolic anastomosis with prolonged ileus, now with Staph epi CLABSI. As he did prior to admission, he continues to have antegrade bowel function despite intolerance to oral intake. -continue only sips of clear ensure as he is doing. -PICC line removed because of positive blood culture. He should get a line holiday. Peripheral nutrition per hospitalist -continue antibiotics for bacteremia, narrow as cultures return -continue PT OT/ambulation -daily dressing changes to the inferior aspect of the wound. MD to change superior wound every other day.
--- NOTE | 2022-02-22 12:58 | P.IMPN_ITS ---
Progress Note: A&P Assessment and plan (1) Bacteremia associated with intravascular line: Problem details: Remove PICC line, culture and continue antibiotics and peripheral nutrition through a peripheral IV. Await repeat cultures. Status: Acute (2) Malnutrition: Problem details: Temporarily switch from TPN to peripheral nutrition with his PICC line out. Continue close monitoring of electrolytes and nutrition and volume status Status: Acute (3) Superficial incisional infection of surgical site: Problem details: Surgical incision appears better but intra-abdominal fluid collection is concerning for infection. Zosyn and vancomycin Status: Acute (4) Postoperative ileus: Problem details: Cautious use of clear liquids. Coordinate with surgery Status: Acute (5) Physical deconditioning: Problem details: Continue therapy and encourage mobility. Status: Acute (6) Status post exploratory laparotomy: Problem details: 66-year-old male s/p exposure laparotomy and revision of ileocolic anastomosis POD 13. Patient continues to have postoperative ileus however he is passing gas and had liquid stools. He is getting daily suppositories. I will continue daily suppositories mostly to stimulate his large intestine. His abdomen is mildly distended and I do not think he is ready to advance his diet. Will plan on repeating his abdominal CT on Monday to evaluate the right upper quadrant fluid collection. Patient is on Zosyn and vancomycin. He did not have any additional fevers. His blood culture grew Staph epidermidis. This could be a contaminant but could also come from his PICC line. I will discuss this further with the hospitalist if we should remove his PICC line and give him a PICC line holiday. Patient will continue to ambulate. Status: Acute (7) Anemia: Problem details: Stable Status: Acute (8) Hyponatremia: Problem details: Stable. With PPN this will probably get worse Status: Acute Time Spent With Patient Total time spent: Total time spent today is 35 minutes, 25 minutes in coordination of care and discussing with patient other providers management of bacteremia, PICC line i nfection, nutrition, ileus. Subjective Date Seen: 02/22/22 Interval history: 66-year-old male seen in followup of postoperative ileus, intra-abdominal infection, malnutrition. Patient reports generally doing well today. He has no specific concerns. Abdominal pain is not been a significant issue in the last day. He is still passing gas and having a little bit a liquid stool. No shortness of breath. No fever. Due to 2 positive blood cultures for Staph epi this weekend and his PICC line was removed yesterday and sent for culture. That is preliminarily growing Gram- positive cocci now. Receiving peripheral nutrition through a peripheral IV. Exam Narrative: Exam Narrative: He is alert and appears in no distress. Respirations are clear to auscultation. Cardiovascular: S1, S2, regular rate and rhythm. No murmur gallop or rub. Bowel sounds are little diminished today compared to yesterday. Abdomen is mildly distended today compared to yesterday. No tenderness. Wounds with small drainage but no significant surrounding erythema. Trace edema in his skin. Const: Vital Signs, click to edit/add: Vital Signs - 24 hr 02/21/22 15:00 02/21/22 15:00 02/21/22 16:00 Temperature 97.5 F L Pulse Rate [Pulse Oximeter] 89 89 Respiratory Rate 18 18 Blood Pressure [Ri ght Arm] 113/71 Pulse Oximetry 97 97 Oxygen Delivery Me thod Room Air Room Air 02/21/22 19:00 02/21/22 23:00 02/21/22 23:00 Temperature 97.4 F L 97.6 F Pulse Rate [Pulse Oximeter] 88 96 96 Respiratory Rate 18 18 18 Blood Pressure [Ri ght Arm] 120/77 132/75 Pulse Oximetry 99 99 Oxygen Delivery Me thod Room Air Room Air 02/21/22 23:24 02/22/22 03:00 02/22/22 08:00 Temperature 97.6 F 98.2 F Pulse Rate [Pulse Oximeter] 92 96 Respiratory Rate 18 18 18 Blood Pressure [Ri ght Arm] 114/60 109/79 Pulse Oximetry 99 94 90 Oxygen Delivery Me thod Room Air Room Air Room Air Documenting provider has reviewed patient's vital signs: yes Labs Labs: Laboratory Results - last 24 hr 02/21/22 02/22/22 06:33 06:20 Sodium 132 L Potassium 4.2 Chloride 99 Carbon Dioxide 24 BUN 34 H Creatinine 1.1 Estimated Creat Clear 66.39 Estimated GFR 75 Glucose 124 H Calcium 8.4 C-Reactive Protein 3.6 H
[2022-02-22 15:00] VITALS: PULSE 91; RESP 18
[2022-02-22] MEDS: ENOXAPARIN 40 MG/0.4 ML INJ SUBCUT (15:49)
[2022-02-22] MEDS: AA 4.25%/CALCIUM/LYTES/DEX 10% 2,000 ML 80 ML IVPB (15:50)
[2022-02-22 16:00] VITALS: O2SAT 94
[2022-02-22 19:48] VITALS: BP 146/70; PULSE 95; RESP 20; TEMP 36.9; O2SAT 97
--- NOTE | 2022-02-22 20:00 | PC.NURSE ---
shift note: pt up ambulated in mark 50ft. IV x2 patent. LS clr. IS to 1000. Pt denies pain. ABD is soft but slightly distended. drsg sites x3 intact with unchanged shadowing to Rt upper drsg. pt refused supplement. pt had 1 small liquid stool. buttocks is red and chaffed. Pt afeb with stable vss.
[2022-02-22] MEDS: CITALOPRAM HYDROBROMIDE 20 MG TABLET PO (21:43)
[2022-02-22] MEDS: PRAVASTATIN 80 MG TABLET 1 EACH PO (21:45)
[2022-02-22] MEDS: SODIUM CHLORIDE 0.9 % (FLUSH) 10 ML SYRINGE 5 ML IVF ×2 (21:52→22:02)
[2022-02-22] MEDS: KETOROLAC 15 MG/ML inj IVP (22:01)
[2022-02-22] MEDS: MELATONIN 3 MG TABLET PO (23:59)
[2022-02-23] VITALS (8 sets, daily range): BP systolic 123–150; BP diastolic 69–82; PULSE 90–109; RESP 16–20; TEMP 36.3–37; O2SAT 95–99
[2022-02-23] MEDS: KETOROLAC 15 MG/ML inj IVP ×2 (04:33→23:30)
[2022-02-23] MEDS: PIPERACILLIN/TAZOBACTAM 3.375 GM in 0.9 % SODIUM CHLORIDE Mini-bag 100 ML IVPB (06:01)
--- NOTE | 2022-02-23 06:32 | PC.NURSE ---
END OF SHIFT NOTE: PT IS PLEASANT AND COOPERATIVE. VSS ON RA; AFEBRILE. PT USING URINAL TO VOID NOC. PT UNABLE TO AMBULATE TO BATHROOM FOR SMALL BM; PT WAS PUSHED VIA WHEELED WALKER. PT REPORTS FEELING VERY WEAK. BG CHECKS 122 AND 148; NO SS REQUIRED. LINENS, GOWN CHANGED AND PT CLEANED UP. TPN RUNNING @80ML/HR.
[2022-02-23] MEDS: OMEPRAZOLE 20 MG CAPSULE DR PO (07:02)
[2022-02-23 07:18] LABS: C Reactive Protein* 16.8 mg/dL (0.5-1.0)
--- NOTE | 2022-02-23 07:30 | CT_ITS ---
Patient: DEIDRE FINLEY Facility:?[facility] Patient ID:?[id number] Site Patient ID:?[id number]. Site :?[id number] Study:?CT-Abdomen/Pelvis 91cc ISOVUE 370-02/23/2022 8:48:34 AM Ordering Physician:González Pereira Final Report: Indication: Small-bowel obstruction follow-up, right upper quadrant fluid retention, history of hemicolectomy and ileostomy Technique: Volumetric multidetector CT images of the abdomen and pelvis were obtained after the administration of intravenous contrast. 91 cc Isovue 370 low osmolar intravenous contrast Comparison: CT abdomen and pelvis February 18, 2022 Findings: There is bibasilar atelectasis and minimal parenchymal scar. The liver is mildly prominent with mild periportal edema similar to previous exam. There is no significant focal abnormality. The portal vein is patent. There is a mildly hydropic gallbladder without evidence of focal radiopaque calculus. There is no significant common biliary ductal dilatation or abrupt cut off. The spleen is normal in enhancement and size. There is moderate fluid distention of the stomach and esophagus with mucosal hyperemia likely representing mild chronic gastritis changes. The pancreas is normal in enhancement without significant atrophy. The adrenal glands are unremarkable. The kidneys demonstrate preserved corticomedullary differentiation without evidence of obstructive uropathy. There are again seen extensive dilated fluid-filled loops of small bowel and proximal colon status post ileostomy take down with a decompressed appearance of the distal colon. Extensive inflammatory changes appreciated within the right upper quadrant abdomen are again appreciated. There is likely a transition point seen within the peripheral right upper quadrant adjacent to the inferior margin of the liver. The appendix is surgically absent. There is no significant mesenteric, retroperitoneal, or pelvic sidewall lymph nodes. The aorta is non aneurysmal with mild scattered atherosclerotic calcification. The solid pelvic viscera are grossly unremarkable. There is minimal fluid seen in the pericolic gutters. There is no intra- abdominal free air. Postoperative changes of the anterior abdominal wall status post incision is again appreciated. The lumbar vertebral body heights are grossly stable from comparison with moderate to severe degenerative disc disease. Impression: Again seen are extensively dilated, fluid-filled loops of small bowel status post ileostomy, right hemicolectomy and primary reanastomosis after ileostomy take-down. Findings may represent persistent postoperative ileus and/or obstructive in with questionable caliber transition seen at the operative anastomosis in the right upper quadrant. There is moderate nodular soft tissue and/or inflammatory change within the right upper quadrant abdomen similar to previous exam with resolution of previously seen subcentimeter rim enhancing fluid collection. There is no intra-abdominal free air or free fluid. Residual postoperative changes of the ventral abdomen are appreciated. Moderate fluid distention of the stomach and esophagus. Please note that all CT scans at this facility use dose modulation, iterative reconstruction, and/or weight-based dosing when appropriate to reduce radiation dose to as low as reasonably achievable. Dictated by Logan Deluna MD @ 02/23/2022 9:22:18 AM Signed by:?Logan Deluna MD @02/23/2022 9:22:18 AM (Electronic Signature)
[2022-02-23 07:41] LABS: Basophils Absolute Auto 0.01 K/uL (0.00-0.30); Basophils Percent Auto 0.1 % (0.0-3.0); Eosinophils Absolute Auto 0.02 K/uL (0.00-0.50); Eosinophils Percent Auto 0.2 % (0.0-7.0); Hematocrit 26.2 % (37.0-53.0); Hemoglobin* 8.6 gm/dL (13.5-17.5); Immature Granulocytes Abs Auto 0.04 K/uL (0.00-0.30); Lymphocytes Percent Auto 5.7 % (20-44); Mean Corpuscular HGB Conc 33 gm/dL (32-36); Mean Corpuscular Hemoglobin 30 pg (26-34); Mean Corpuscular Volume 90 fL (80-100); Monocytes Percent Auto 5.3 % (0.0-11.0); Neutrophils Percent Auto 88.3 % (42.0-72.0); Platelet Count* 561 K/uL (140-440); RDW Coefficient of Variation % 14.1 % (11.5-15.5); Red Blood Count 2.92 m/uL (4.30-5.90); White Blood Count* 10.66 K/uL (4.50-11.00)
[2022-02-23 07:47] LABS: Slide Review Reflex No
[2022-02-23 07:50] LABS: Triglycerides* 114 mg/dL (40-149)
[2022-02-23 07:51] LABS: Phosphorus* 4.3 mg/dL (2.5-4.5)
[2022-02-23] MEDS: bisacodyL 10 MG SUPP.RECT PR (09:53)
[2022-02-23 09:57] LABS: Chloride* 100 mmol/L (96-114); Sodium* 130 mmol/L (135-149)
[2022-02-23 10:00] LABS: Blood Urea Nitrogen* 45 mg/dL (7-30); Carbon Dioxide* 22 mmol/L (20-32); Creatinine* 1.1 mg/dL (0.5-1.5); Est. Creatinine Clearance* 75.66; Estimated Glomerular Filt Rate 75 ml/min; Glucose* 148 mg/dL (60-115)
[2022-02-23 10:01] LABS: Calcium* 8.4 mg/dL (8.4-10.6)
--- NOTE | 2022-02-23 10:30 | P.IMPN_ITS ---
Progress Note: A&P Assessment and plan (1) Bacteremia associated with intravascular line: Problem details: Bacteremia with Staph epidermidis. Continue IV antibiotics with vancomycin. Possible replacement of PICC line tomorrow. Status: Acute (2) Malnutrition: Problem details: Temporarily switch from TPN to peripheral nutrition with his PICC line out. Continue close monitoring of electrolytes and nutrition and volume status Status: Acute (3) Superficial incisional infection of surgical site: Problem details: Surgical incision appears better but intra-abdominal fluid collection is concerning for infection. Zosyn and vancomycin Status: Acute (4) Postoperative ileus: Problem details: Increase abdominal distension. Per surgery will have NG placed again today. Status: Acute (5) Physical deconditioning: Problem details: Continue therapy and encourage mobility. Status: Acute (6) Status post exploratory laparotomy: Problem details: 66-year-old male s/p exposure laparotomy and revision of ileocolic anastomosis POD 13. Patient continues to have postoperative ileus however he is passing gas and had liquid stools. He is getting daily suppositories. I will continue daily suppositories mostly to stimulate his large intestine. His abdomen is mildly distended and I do not think he is ready to advance his diet. Will plan on repeating his abdominal CT on Monday to evaluate the right upper quadrant fluid collection. Patient is on Zosyn and vancomycin. He did not have any additional fevers. His blood culture grew Staph epidermidis. This could be a contaminant but could also come from his PICC line. I will discuss this further with the hospitalist if we should remove his PICC line and give him a PICC line holiday. Patient will continue to ambulate. Status: Acute (7) Anemia: Problem details: Gradual decline in hemoglobin Status: Acute (8) Hyponatremia: Problem details: Gradual decline in sodium. This will improve when he is back on TPN. Status: Acute Time Spent With Patient Total time spent: Total time spent today is 40 minutes, 30 minutes in discussion of management pain, ileus, malnutrition, electrolyte problems, bacteremia. Subjective Date Seen: 02/23/22 Interval history: 66-year-old male seen in followup of postoperative ileus, malnutrition, abdominal infection, bacteremia. Patient reports some increased abdominal distention today he reports his abdomen feels more tight. He has not had any vomiting. He is having hiccups however. He is passing gas but has not had a bowel movement. He has no fever. Exam Narrative: Exam Narrative: He is alert appears in no distress. Breathing is unlabored. Cardiovascular: S1, S2, regular rate and rhythm. Abdomen is distended with bowel sounds diminished. Diffuse tenderness. Extremities without edema. Const: Vital Signs, click to edit/add: Vital Signs - 24 hr 02/22/22 11:00 02/22/22 19:48 02/22/22 15:00 Temperature 97.8 F 98.5 F Pulse Rate [Pulse Oximeter] 99 95 91 Respiratory Rate 20 20 18 Blood Pressure [Ri ght Arm] 136/68 146/70 H Pulse Oximetry 99 97 Oxygen Delivery Me thod Room Air Room Air 02/22/22 16:00 02/23/22 00:00 02/23/22 00:00 Temperature 97.8 F Pulse Rate [Pulse Oximeter] 90 90 Respiratory Rate 16 16 Blood Pressure [Ri ght Arm] 125/69 Pulse Oximetry 94 95 Oxygen Delivery Me thod Room Air Room Air 02/23/22 00:00 02/23/22 04:00 Temperature 97.4 F L Pulse Rate [Pulse Oximeter] 108 H Respiratory Rate 20 Blood Pressure [Ri ght Arm] 132/79 Pulse Oximetry 95 96 Oxygen Delivery Me thod Room Air Room Air Documenting provider has reviewed patient's vital signs: yes Labs Labs: Laboratory Results - last 24 hr 02/23/22 02/23/22 02/23/22 06:06 06:06 06:06 WBC 10.66 RBC 2.92 L Hgb 8.6 L Hct 26.2 L MCV 90 MCH 30 MCHC 33 RDW Coeff of Latoya 14.1 Plt Count 561 H Neut % (Auto) 88.3 H Lymph % (Auto) 5.7 L [place] % (Auto) 5.3 Eos % (Auto) 0.2 Baso % (Auto) 0.1 Neut # (Auto) 9.40 H Lymph # (Auto) 0.60 L [place] # (Auto) 0.60 Eos # (Auto) 0.02 Baso # (Auto) 0.01 Abs Immat Gran (auto) 0.04 Sodium 130 L Potassium 4.0 Chloride 100 Carbon Dioxide 22 BUN 45 H Creatinine 1.1 Estimated Creat Clear 75.66 Estimated GFR 75 Glucose 148 H Calcium 8.4 Phosphorus 4.3 C-Reactive Protein 16.8 H Triglycerides 114
--- NOTE | 2022-02-23 10:38 | CRLHL7_ITS ---
For Patients: As a result of the Century Cures Act, medical imaging exams and procedure reports are released immediately into your electronic medical record. You may view this report before your referring provider. If you have questions, please contact your health care provider. Indication: Feeding tube and NG tube placement Technique: NG tube and feeding tube placement under fluoroscopy. Findings: Under fluoroscopic guidance feeding tube was advanced to the distal esophagus. This could not be advanced further into the stomach. Findings the feeding tube was removed at the request the ordering physician. An NG tube was advanced to the distal esophagus. Gastrografin was administered to confirm location. The NGT was placed at the distal esophagus given that it could not be advanced further into the stomach. Impression: Fluoroscopic guidance of feeding tube placement and removal with subsequent NG-tube placement into the distal esophagus. Gastrografin was also administered. 1 minutes 1 second fluoro time. Dictated by Jaclyn Burgess MD @ 02/23/2022 2:52:07 PM (Electronically Signed)
[2022-02-23] MEDS: ERTAPENEM 1 GM in 0.9 % SODIUM CHLORIDE Mini-bag 100 ML IVPB (12:48)
--- NOTE | 2022-02-23 15:00 | CRLHL7_ITS ---
For Patients: As a result of the Century Cures Act, medical imaging exams and procedure reports are released immediately into your electronic medical record. You may view this report before your referring provider. If you have questions, please contact your health care provider. INDICATION: NG tube placement verification. TECHNIQUE: Chest 1 views. COMPARISON: 02/19/2022. FINDINGS/IMPRESSION: Enteric tube is coiled in the epigastric region with the tip at the level of the gastroesophageal junction with the side-port in the distal esophagus. Recommend advancement. Interval removal of the right upper extremity PICC. The lungs are clear without evidence of consolidation, pleural effusion, or pneumothorax. Unremarkable cardiomediastinal silhouette. Right chest dual lead electronic device. Dictated by Charanjit Bass MD @ 02/23/2022 5:01:50 PM (Electronically Signed)
--- NOTE | 2022-02-23 15:16 | PM.GSPN ---
Subjective Subjective Date Seen: 02/23/22 Interval history: Patient has not improved. He denies abdominal pain but feels more distended today. He will had a few episodes of passing gas and had a liquid bowel movement after suppository today. Exam Narrative: Exam Narrative: Abdomen: Distended, soft, not tender to palpation. The dressings were changed. The right paramedian incision and right superior midline open area are are repacked with Hydrofera blue. The 2 inferior open areas of midline incision were repacked with iodoform gauze. Const: Vital Signs, click to edit/add: Vital Signs - 24 hr 02/22/22 19:48 02/22/22 16:00 02/23/22 00:00 Temperature 98.5 F Pulse Rate [Pulse Oximeter] 95 90 Respiratory Rate 20 16 Blood Pressure [Ri ght Arm] 146/70 H Pulse Oximetry 97 94 Oxygen Delivery Me thod Room Air Room Air 02/23/22 00:00 02/23/22 00:00 02/23/22 04:00 Temperature 97.8 F 97.4 F L Pulse Rate [Pulse Oximeter] 90 108 H Respiratory Rate 16 20 Blood Pressure [Ri ght Arm] 125/69 132/79 Pulse Oximetry 95 95 96 Oxygen Delivery Me thod Room Air Room Air Room Air Progress Note: A&P Assessment and plan (1) Status post exploratory laparotomy: Problem details: 66-year-old male s/p exposure laparotomy and revision of ileocolic anastomosis POD 14. Patient's CT scan was repeated and patient continues to have distended stomach and dilated small intestine. There was a question of transition point at the anastomosis. I discussed the CT scan with radiologist who read the CT. The radiologist is not definite that there is a transition point and picture is not very clear. Patient's CT scan from a few days ago showed patent anastomosis. The small fluid collection that was present before is now gone however there continues to be inflammation in the right upper quadrant. We placed NG tube under fluoroscopy today however the tip of the NG tube was at the GE junction or upper stomach. It did not want to advance easily into the stomach and the NG tube was coiling in the esophagus. The NG is placed to suction however only small amount of gastric content fluid came out. We attempted to readjust the NG tube at bedside but patient had some discomfort. Will repeat a chest x-ray to see if the NG tube is in good position. I had a long discussion with the patient and his about the CT findings and the reasons why he continues to have postoperative ileus or obstruction. We could interrogate his ileocolic anastomosis with a Gastrografin enema. Patient had a lot of discomfort with his first Gastrografin enema that was done preoperatively. He is requesting sedation for this procedure. For now we will plan on doing Gastrografin enema on Monday. I also placed a call to [facility] to see if I could discuss this patient with their general surgery department for possible consultation or transfer, and we were rejected since they have no beds and patient has never been seen at [facility]. Patient is receiving PPN since he had Staph epidermidis in his PICC line. We will probably need to replace his PICC line tomorrow or Monday to continue TPN. Will check C diff just to make sure when not missing other causes for his diarrhea although the yield is low. Status: Acute
[2022-02-23] MEDS: ENOXAPARIN 40 MG/0.4 ML INJ SUBCUT (15:27)
--- NOTE | 2022-02-23 15:46 | PC.NURSE ---
shift note: pt up to recliner this a.m and appeared happy and stronger. pt has slightly distended abd with hyperactive tones. pt denies flatus. drsg sites x3 intact. Dr. Marley performed drsg changes. Pt to CT this a.m. Pt brought to OR for NG placement. pt returned with NG @ 57cm. NG placed at LIS. Pt having difficulty with gagging due to mucous in throat. Pt denied nausea but did have continuous hiccups. Dr. Marley at bedside answering questions for family about poc. IV x2 patent. LS dim. pt using IS to 750.
[2022-02-23] MEDS: HYDROmorphone 0.5 mg/0.5 ml inj IVP (15:50)
[2022-02-23] MEDS: AA 4.25%/CALCIUM/LYTES/DEX 10% 2,000 ML 80 ML IVPB (16:17)
--- NOTE | 2022-02-23 19:15 | PC.NURSE ---
Results of portable XR for NG verification discussed with Dr. Vicente. Instructed to leave NG in place to gravity. Do not advance further, leave at current position.
--- NOTE | 2022-02-23 19:43 | CRLHL7_ITS ---
For Patients: As a result of the Cures Act, medical imaging exams and procedure reports are released immediately into your electronic medical record. You may view this report before your referring provider. If you have questions, please contact your health care provider. INDICATION: NG tube. TECHNIQUE: Chest 1 views. COMPARISON: None. FINDINGS: Lungs: Clear lungs. No consolidation. Pleura: No pleural effusion or pneumothorax. Heart and Mediastinum: The cardiomediastinal silhouette is normal. The vessels are unremarkable. Bones: Unremarkable. Upper abdomen: The NG tube is not well seen and appears to have its tip in the region of the gastroesophageal junction. IMPRESSION: No acute cardiopulmonary disease. Dictated by Farnk Clemens MD @ 02/23/2022 8:49:29 PM (Electronically Signed)
--- NOTE | 2022-02-23 20:48 | PC.NURSE ---
End of shift. pt has been pleasant. abd pain is 2-6/10 and he got 0.5 IVP Dilaudid. NG was @ 59/60. location manager md was contacted and NG was pulled out 5 cm to 55 and repeat x ray was done. pt abd is distended with hyperactive tones. NG is to LIS. was @ 200 @ start of my shift and 900 at the end of my Shift. no flatus. abd dressing is C/D/I. Pt has no nausea, he is having hiccups. TPN and Lipids are infusing. and SL is patent. IS to 750. encouraged use of it. ?
[2022-02-23] MEDS: CITALOPRAM HYDROBROMIDE 20 MG TABLET PO (21:37)
[2022-02-23] MEDS: PRAVASTATIN 80 MG TABLET 1 EACH PO (21:38)
[2022-02-23] MEDS: 0.9 % SODIUM CHLORIDE 250 ml IV (22:02)
[2022-02-24] VITALS (10 sets, daily range): BP systolic 108–139; BP diastolic 60–93; PULSE 85–112; RESP 16–40; TEMP 36.5–37.1; O2SAT 95–100
[2022-02-24 00:36] LABS: Troponin I* < 0.01 ng/mL (0.01-0.04)
--- NOTE | 2022-02-24 06:28 | PC.NURSE ---
Addendum entered by Maddy James RN 02/24/22 07:39: Passing gas per patient. Original Note: [id number]: Patient cooperative with cares. NG to gravity flow. Patient agrees to be T&R only a couple times. C/o chest pain. EKG read sinus tachy. MD updated. see orders. Toradol administered for relief. Mepilex to abdomen with small amount of old drainage.
[2022-02-24] MEDS: OMEPRAZOLE 20 MG CAPSULE DR PO (06:47)
[2022-02-24 06:59] LABS: Basophils Absolute Auto 0.02 K/uL (0.00-0.30); Basophils Percent Auto 0.2 % (0.0-3.0); Hematocrit 27.5 % (37.0-53.0); Hemoglobin* 9.3 gm/dL (13.5-17.5); Immature Granulocytes Abs Auto 0.01 K/uL (0.00-0.30); Lymphocytes Percent Auto 4.6 % (20-44); Mean Corpuscular HGB Conc 34 gm/dL (32-36); Mean Corpuscular Hemoglobin 30 pg (26-34); Mean Corpuscular Volume 88 fL (80-100); Neutrophils Percent Auto 91.1 % (42.0-72.0); Platelet Count* 580 K/uL (140-440); RDW Coefficient of Variation % 13.9 % (11.5-15.5); Red Blood Count 3.11 m/uL (4.30-5.90); White Blood Count* 9.52 K/uL (4.50-11.00)
[2022-02-24 07:01] LABS: Slide Review Reflex No
[2022-02-24 07:16] LABS: Albumin* 2.6 g/dL (3.3-5.0); Chloride* 101 mmol/L (96-114); Sodium* 132 mmol/L (135-149)
[2022-02-24 07:17] LABS: Potassium* 3.4 mmol/L (3.6-5.1)
[2022-02-24 07:18] LABS: Creatinine* 0.9 mg/dL (0.5-1.5); Est. Creatinine Clearance* 73.99; Estimated Glomerular Filt Rate 95 ml/min
[2022-02-24 07:19] LABS: Alanine Aminotransferase* 11 U/L (4-50); Alkaline Phosphatase* 152 U/L (40-150); Aspartate Amino Transferase* 17 U/L (12-35); Bilirubin Total* 0.5 mg/dL (0.1-1.5); Blood Urea Nitrogen* 40 mg/dL (7-30); Carbon Dioxide* 23 mmol/L (20-32); Glucose* 147 mg/dL (60-115); Total Protein* 5.1 g/dL (6.0-8.3); Triglycerides* 95 mg/dL (40-149)
[2022-02-24 07:20] LABS: Calcium* 8.3 mg/dL (8.4-10.6); Phosphorus* 3.5 mg/dL (2.5-4.5)
[2022-02-24 07:26] LABS: INR 1.18 (0.91-1.10); Prothrombin Time 15.4 Seconds
[2022-02-24] MEDS: SODIUM CHLORIDE 0.9 % (FLUSH) 10 ML SYRINGE 5 ML IVF ×3 (08:13→20:51)
[2022-02-24] MEDS: bisacodyL 10 MG SUPP.RECT PR (08:13)
--- NOTE | 2022-02-24 12:49 | REH.OT ---
Pt was not seen today due to medical procedures. OT checked for pt x2 in his room and pt was not present. POC to continue tomorrow.
--- NOTE | 2022-02-24 13:34 | W.ANESCHARGE ---
Anesthesia Charges Start Date/Time Anesthesia Start Date: 02/24/22 Anesthesia Start Time: 12:00 Stop Date/Time Anesthesia Stop Date: 02/24/22 Anesthesia Stop Time: 13:30 Summary Emergency: No
[2022-02-24] MEDS: ERTAPENEM 1 GM in 0.9 % SODIUM CHLORIDE Mini-bag 100 ML IVPB (14:54)
--- NOTE | 2022-02-24 15:00 | CRLHL7_ITS ---
For Patients: As a result of the Cures Act, medical imaging exams and procedure reports are released immediately into your electronic medical record. You may view this report before your referring provider. If you have questions, please contact your health care provider. Indication: PICC line Technique: Ultrasound upper extremity Comparison: No comparison Findings: Ultrasound provided for placement of left sided PICC line localizing the basilic vein with placement of a PICC line in the left basilic vein. Please see providers note for full details. Dictated by Jaclyn Burgess MD @ 02/25/2022 9:14:27 AM (Electronically Signed)
--- NOTE | 2022-02-24 15:01 | PC.NURSE ---
End of shift report: Patient was up in chair for 2 hours this morning. Patients feet did not work so he was unable to walk. Tremors were fairly noticeable. Patient requested his sinemet be changed to every 4 hours instead of every 6 hours. MD aware and changed. NGT to gravity was in place this morning. Patient was swallowing meds and remaining clamped for 30-60min. Dr. Mays was in room this morning and changed the bottom of the 3 dressings. The other 2 mepilex are every other day and she will do them tomorrow. One dressing has purple on the it but it is from the dressing underneath mepilex. Dr. Mays also stated that they will try and transfer patient to [facility] today. If unsuccessful, they will attempt to have patient go for interventional radiology for NGT placement and come back, or go to endoscopy here and attempt to readjust NGT placement through EGD. Patient was accepted by [facility] but is on a waitlist. [facility] to call every 2 hours to see where patient is at on list. Dr. Mays decided to take patient to endoscopy for an EGD with MAC sedation at noon today. Was unsuccessful at adjusting NGT and ended up removing NGT. Patient continues to be distended, but denies nausea and pain. Does have hiccups but all meds that help this can hurt his parkinsons. Has PPN running in peripheral IV at 80ml/hr. Plan is to place a PICC line (cultures have been negative) this afternoon and start TPN after that is placed. Patient also getting IV antibiotics and is NPO. Had a supp this morning with 1 liquid BM after. This was mixed with urine so was unable to send a cdiff sample that Dr. Mays verbally requested if we happened collected one. Lung sounds are diminished. Using incentive spirometer. Patient was tachypnic and tachycardic this morning but was also very anxious. MD was notified and ordered PRN ativan. This was not administered yet as patient went for a procedure with sedation and these vital signs are within normal limits now. Patient is alert and oriented with some foggyness. Patients meir was unable to come today but left messages with updates throughout the day. Brain stimulator is on and was never turned off for procedure as cautery was not used.
--- NOTE | 2022-02-24 16:00 | CRLHL7_ITS ---
For Patients: As a result of the Century Cures Act, medical imaging exams and procedure reports are released immediately into your electronic medical record. You may view this report before your referring provider. If you have questions, please contact your health care provider. INDICATION: Verify PICC placement. TECHNIQUE: Chest 1 views. COMPARISON: February 23, 2022. FINDINGS: Cardiovascular and mediastinum: Stable heart size. Generator pack overlying right chest wall. Left-sided PICC terminating in the right atrium. Lungs and pleural spaces: Bibasilar atelectasis. No sign of infiltrate or mass. No sign of pleural effusion. No pneumothorax. Bones and soft tissues: No significant findings. IMPRESSION: Left-sided PICC terminating in the right atrium. Dictated by Kevan Medrano MD @ 02/24/2022 7:08:49 PM (Electronically Signed)
--- NOTE | 2022-02-24 16:00 | P.GSPN_ITS ---
Subjective Subjective Date Seen: 02/24/22 Interval history: Patient complained of some discomfort in the left side of the abdomen. He did not pass gas today. His NG tube was not in the right spot and was located in the distal esophagus. He denies any nausea vomiting. Exam Narrative: Exam Narrative: Abdomen: Abdomen is mildly distended, minimally tender to palpation in the left upper quadrant, but not tender anywhere else, no peritoneal signs. Patient is to inferior midline laparotomy wounds were repacked with iodoform gauze. Const: Vital Signs, click to edit/add: Vital Signs - 24 hr 02/23/22 17:00 02/23/22 19:00 02/23/22 23:00 Temperature 98.6 F 97.7 F Pulse Rate [Pulse Oximeter] 97 109 H 108 H Respiratory Rate 18 20 20 Blood Pressure [Ri ght Arm] 150/82 H 134/78 Pulse Oximetry 96 97 Oxygen Delivery Me thod Room Air Room Air 02/23/22 23:00 02/23/22 23:00 02/24/22 03:00 Temperature 97.9 F Pulse Rate [Pulse Oximeter] 108 H 101 H Respiratory Rate 20 20 Blood Pressure [Ri ght Arm] 139/81 Pulse Oximetry 97 96 Oxygen Delivery Me thod Room Air Room Air 02/24/22 09:15 02/24/22 09:15 02/24/22 09:15 Temperature 97.8 F Pulse Rate [Pulse Oximeter] 112 H 112 H Respiratory Rate 40 H 40 H Blood Pressure [Ri ght Arm] 127/77 Pulse Oximetry 95 95 Oxygen Delivery Me thod Room Air Room Air 02/24/22 11:11 02/24/22 14:20 02/24/22 14:30 Temperature 98.7 F 97.9 F Pulse Rate [Pulse Oximeter] 104 H 85 86 Respiratory Rate 35 H 20 16 Blood Pressure [Ri ght Arm] 118/68 113/79 119/69 Pulse Oximetry 95 95 98 Oxygen Delivery Me thod Room Air Room Air Room Air 02/24/22 15:00 Temperature Pulse Rate [Pulse Oximeter] 85 Respiratory Rate 16 Blood Pressure [Ri ght Arm] 121/69 Pulse Oximetry 100 Oxygen Delivery Me thod Room Air Progress Note: A&P Assessment and plan (1) Status post exploratory laparotomy: Problem details: 66-year-old male s/p exposure laparotomy and revision of ileocolic anastomosis POD 15. Patient's NG tube is not in the right position. It is in the distal esophagus and we were unable to safely advance it to the stomach. I discussed with the patient that the only option we had is to attempt advancing the NG tube with the EGD scope. We attempted to do this today but were not successful despite multiple attempts. Patient's case was discussed with a surgeon at [facility] who agreed to accept him however we are waiting for [facility] surg bed to open up. For now will continue PPN or TPN if PICC line is placed today. Continue antibiotics. Continue NPO. Status: Acute
--- NOTE | 2022-02-24 16:15 | PM.GSPN ---
Subjective Subjective Date Seen: 02/24/22 Interval history: Interval summary Patient was admitted to the hospital with inability to eat and abdominal distension. Patient was initially treated with NPO and TPN. His abdominal distension did not improve and had minimal to no antegrade bowel function. Patient was taking to the operating room for exploratory laparotomy and revision of ileocolic anastomosis. Intraoperatively patient's anastomosis was patent and he had minimal adhesions. His ileocolic anastomosis was resected and sent to pathology. Pathology showed an abscess at the anastomosis although there was no presence of an abscess intraoperatively. Patient was treated with NPO and NG tube for multiple days. His NG tube was clamped and he tolerated well. He was advanced to clear liquid diet with clamped NG tube in place and tolerated that well. He continued to pass gas and have liquid bowel movements. However, several days after his NG was removed and his diet was advanced, patient again developed abdominal distension. He was still passing gas but had a lot of nausea and vomiting. Patient was then placed again NPO with continue TPN. Patient developed a surgical site infection at his midline laparotomy incision. 3 different areas of midline incision were opened and treated with packings. Patient was treated with Zosyn. His surgical site infection improved. However patient developed a fever and grew Staph epidermidis in peripheral culture. Vancomycin was added for antibiotic coverage. Since 2 of the peripheral cultures grew the same organism, his PICC line was removed and he was given a line holiday. He continued to be on IV antibiotics. Patient was then treated with PPN. His abdomen continued to be distended and he continued to have gas and liquid stools. On 02/18/[address] was obtained that showed a small fluid collection in the right upper quadrant with inflammation in the right upper quadrant. Patient's small intestine was largely dilated. His ileocolic anastomosis appeared to be patent. The fluid collection was near the gallbladder and subhepatic and was not thought to be amenable to percutaneous drainage. We continued treatment with antibiotics and bowel rest. A repeat CT on 02/23/2022 showed resolution of small fluid collection however the inflammation in the right upper quadrant was still present. Patient continued to have dilated stomach and small intestine. Due to his abdominal distension, an attempt was made to place his NG tube at bedside. Patient has a history of Heller myotomy 2 years ago. After multiple unsuccessful attempts of repositioning and advanding the NG tube, this was removed. On 02/23/[address] NG tube under fluoroscopic guidance. However the tube was coiling in the esophagus and it was difficult to advance into the stomach passed GE junction. With contrast injected through the tube we were able to see that the stomach opacified however the tube did not advance easily into the stomach and the tip of the NG tube was left at the GE junction. Suction was applied to NG tube and about 900 mL total of fluid were aspirated through this NG tube. However the tube was coiled in the esophagus and it was pulled back. We attempted to replace NG tube with EGD however this was also not successful. Patient continued to be NPO. His PICC line was replaced on 02/24. Exam Const: Vital Signs, click to edit/add: Vital Signs - 24 hr 02/23/22 17:00 02/23/22 19:00 02/23/22 23:00 Temperature 98.6 F 97.7 F Pulse Rate [Pulse Oximeter] 97 109 H 108 H Respiratory Rate 18 20 20 Blood Pressure [Ri ght Arm] 150/82 H 134/78 Pulse Oximetry 96 97 Oxygen Delivery Me thod Room Air Room Air 02/23/22 23:00 02/23/22 23:00 02/24/22 03:00 Temperature 97.9 F Pulse Rate [Pulse Oximeter] 108 H 101 H Respiratory Rate 20 20 Blood Pressure [Ri ght Arm] 139/81 Pulse Oximetry 97 96 Oxygen Delivery Ca thod Room Air Room Air 02/24/22 09:15 02/24/22 09:15 02/24/22 09:15 Temperature 97.8 F Pulse Rate [Pulse Oximeter] 112 H 112 H Respiratory Rate 40 H 40 H Blood Pressure [Ri ght Arm] 127/77 Pulse Oximetry 95 95 Oxygen Delivery Ca thod Room Air Room Air 02/24/22 11:11 02/24/22 14:20 02/24/22 14:30 Temperature 98.7 F 97.9 F Pulse Rate [Pulse Oximeter] 104 H 85 86 Respiratory Rate 35 H 20 16 Blood Pressure [Ri ght Arm] 118/68 113/79 119/69 Pulse Oximetry 95 95 98 Oxygen Delivery Ca thod Room Air Room Air Room Air 02/24/22 15:00 Temperature Pulse Rate [Pulse Oximeter] 85 Respiratory Rate 16 Blood Pressure [Ri ght Arm] 121/69 Pulse Oximetry 100 Oxygen Delivery Me thod Room Air
--- NOTE | 2022-02-24 16:54 | W.ANESCHARGE ---
Anesthesia Charges Start Date/Time Anesthesia Start Date: 02/24/22 Anesthesia Start Time: 12:00 Stop Date/Time Anesthesia Stop Date: 02/24/22 Anesthesia Stop Time: 13:30 Summary Emergency: No
--- NOTE | 2022-02-24 16:56 | P.IMPN_ITS ---
Progress Note: A&P Assessment and plan (1) Bacteremia associated with intravascular line: Problem details: Bacteremia with Staph epidermidis. Continue IV antibiotics with vancomycin. New PICC line today. If persistent problems concerning for bacteremia may need to visit the question of his deep brain stimulator being infected as well. Status: Acute (2) Malnutrition: Problem details: Resume TPN at previous formula Status: Acute (3) Superficial incisional infection of surgical site: Problem details: Surgical incision appears to be generally doing well. Intra-abdominal fluid collection is also better. Status: Acute (4) Postoperative ileus: Problem details: Increase abdominal distension. Per surgery will have NG repositioned today Status: Acute (5) Physical deconditioning: Problem details: Continue therapy and encourage mobility. Status: Acute (6) Status post exploratory laparotomy: Problem details: 66-year-old male s/p exposure laparotomy and revision of ileocolic anastomosis POD 15. Patient's NG tube is not in the right position. It is in the distal esophagus and we were unable to safely advance it to the stomach. I discussed with the patient that the only option we had is to attempt advancing the NG tube with the EGD scope. We attempted to do this today but were not successful despite multiple attempts. Patient's case was discussed with a surgeon at [facility] who agreed to accept him however we are waiting for [facility] surg bed to open up. For now will continue PPN or TPN if PICC line is placed today. Continue antibiotics. Continue NPO. Status: Acute (7) Anemia: Problem details: Gradual decline in hemoglobin Status: Acute (8) Hyponatremia: Problem details: Gradual decline in sodium. This will improve when he is back on TPN. Status: Acute (9) Anxiety: Problem details: Patient acknowledges significant and appropriate anxiety about his health. Cautious use of lorazepam for symptomatic relief. Status: Acute Plan Continue in hospital for IV antibiotics and nutritional support. Dr. Mays is working on transfer to [facility] pending available beds Time Spent With Patient Total time spent: Total time spent today is 45 minutes, 30 minutes in coordination care and discussing with patient other providers management of nutrition, anxiety, bacteremia, ileus/obstruction Subjective Date Seen: 02/24/22 Interval history: 66-year-old male seen in followup of postoperative ileus/obstruction, malnutrition, bacteremia. Patient had an episode of chest pain last night which resolved he had negative troponins and nonischemic electrocardiograms. This morning he felt dyspneic but that resolved with reassurance from the nurse. He acknowledged feeling quite anxious at the time. When I see him now reports feeling better. He has just had a bowel movement. Is not aware of any fever does not have any current chest pain or shortness of breath or cough. Exam Narrative: Exam Narrative: He is alert and appears in no distress. Mildly anxious today. Respirations are clear to auscultation. Cardiovascular: S1, S2, regular rate and rhythm. Abdomen: Bowel sounds are present. Abdomen is mildly distended, better than it was previously. He has mild diffuse tenderness. Extremities without edema. Const: Vital Signs, click to edit/add: Vital Signs - 24 hr 02/23/22 17:00 02/23/22 19:00 02/23/22 23:00 Temperature 98.6 F 97.7 F Pulse Rate [Pulse Oximeter] 97 109 H 108 H Respiratory Rate 18 20 20 Blood Pressure [Ri ght Arm] 150/82 H 134/78 Pulse Oximetry 96 97 Oxygen Delivery Me thod Room Air Room Air 02/23/22 23:00 02/23/22 23:00 02/24/22 03:00 Temperature 97.9 F Pulse Rate [Pulse Oximeter] 108 H 101 H Respiratory Rate 20 20 Blood Pressure [Ri ght Arm] 139/81 Pulse Oximetry 97 96 Oxygen Delivery Me thod Room Air Room Air 02/24/22 09:15 02/24/22 09:15 02/24/22 09:15 Temperature 97.8 F Pulse Rate [Pulse Oximeter] 112 H 112 H Respiratory Rate 40 H 40 H Blood Pressure [Ri ght Arm] 127/77 Pulse Oximetry 95 95 Oxygen Delivery Me thod Room Air Room Air 02/24/22 11:11 02/24/22 14:20 02/24/22 14:30 Temperature 98.7 F 97.9 F Pulse Rate [Pulse Oximeter] 104 H 85 86 Respiratory Rate 35 H 20 16 Blood Pressure [Ri ght Arm] 118/68 113/79 119/69 Pulse Oximetry 95 95 98 Oxygen Delivery Me thod Room Air Room Air Room Air 02/24/22 15:00 Temperature Pulse Rate [Pulse Oximeter] 85 Respiratory Rate 16 Blood Pressure [Ri ght Arm] 121/69 Pulse Oximetry 100 Oxygen Delivery Mn thod Room Air Documenting provider has reviewed patient's vital signs: yes Labs Labs: Laboratory Results - last 24 hr 02/23/22 02/24/22 02/24/22 23:55 06:36 06:36 WBC 9.52 RBC 3.11 L Hgb 9.3 L Hct 27.5 L MCV 88 MCH 30 MCHC 34 RDW Coeff of Latoya 13.9 Plt Count 580 H Neut % (Auto) 91.1 H Lymph % (Auto) 4.6 L Dickinson % (Auto) 4.0 Eos % (Auto) 0.0 Baso % (Auto) 0.2 Neut # (Auto) 8.70 H Lymph # (Auto) 0.40 L Dickinson # (Auto) 0.40 Eos # (Auto) 0.00 Baso # (Auto) 0.02 Abs Immat Gran (auto) 0.01 INR Sodium 132 L Potassium 3.4 L Chloride 101 Carbon Dioxide 23 BUN 40 H Creatinine 0.9 Estimated Creat Clear 73.99 Estimated GFR 95 Glucose 147 H Calcium 8.3 L Phosphorus 3.5 Magnesium 2.0 Total Bilirubin 0.5 AST 17 ALT 11 Alkaline Phosphatase 152 H Troponin I < 0.01 L Total Protein 5.1 L Albumin 2.6 L Triglycerides 95 02/24/22 06:36 WBC RBC Hgb Hct MCV MCH MCHC RDW Coeff of Latoya Plt Count Neut % (Auto) Lymph % (Auto) Dickinson % (Auto) Eos % (Auto) Baso % (Auto) Neut # (Auto) Lymph # (Auto) Dickinson # (Auto) Eos # (Auto) Baso # (Auto) Abs Immat Gran (auto) INR 1.18 H Sodium Potassium Chloride Carbon Dioxide BUN Creatinine Estimated Creat Clear Estimated GFR Glucose Calcium Phosphorus Magnesium Total Bilirubin AST ALT Alkaline Phosphatase Troponin I Total Protein Albumin Triglycerides
[2022-02-24] MEDS: HYDROmorphone 0.5 mg/0.5 ml inj IVP (18:33)
--- NOTE | 2022-02-24 19:19 | CRLHL7_ITS ---
For Patients: As a result of the Century Cures Act, medical imaging exams and procedure reports are released immediately into your electronic medical record. You may view this report before your referring provider. If you have questions, please contact your health care provider. Indication: PICC placement. Technique: Chest 1 view. Comparison: 02/24/2022. Findings/Impression: Cardiovascular and mediastinum: Heart size and vasculature are normal in caliber and appearance. Left-sided PICC has been retracted, tip is now in ideal position in the lower SVC. Lungs and pleural space: Lungs are clear. No sign of infiltrate or mass. No sign of pleural effusion. No pneumothorax. Bones and soft tissues: No acute findings. Dictated by Jorge L Mosley MD @ 02/24/2022 8:34:16 PM (Electronically Signed)
--- NOTE | 2022-02-24 19:52 | PC.NURSE ---
PATIENT PLEASANT AND COOPERATIVE, ALERT AND ORIENTED, TURN AND REPO IN BED, RATING PAIN 3-4/10 IN ABDOMEN BEING MANAGED WITH PRN DILAUDID, DRESSINGS INTACT TO ABDOMEN, PICC STAT HERE TO PLACE PICC, DECLINES PASSING GAS, HYPOACTIVE BOWEL SOUNDS, NPO SIPS WITH MEDICATIONS OKAY PER MD.
[2022-02-24] MEDS: AA 5 %/CALCIUM/LYTES/DEXT 20 % 2,000 ML 80 ML IVPB (20:45)
[2022-02-24] MEDS: CITALOPRAM HYDROBROMIDE 20 MG TABLET PO (20:49)
[2022-02-24] MEDS: KETOROLAC 15 MG/ML inj IVP (21:16)
[2022-02-24] MEDS: 0.9 % SODIUM CHLORIDE 250 ml IV (23:10)
[2022-02-25] VITALS (10 sets, daily range): BP systolic 117–132; BP diastolic 69–89; PULSE 101–116; RESP 16–20; TEMP 36.7–37.3; O2SAT 93–98
[2022-02-25] MEDS: KETOROLAC 15 MG/ML inj IVP ×2 (05:06→11:56)
--- NOTE | 2022-02-25 05:33 | ED.NURSE ---
Pt slept throughout the shift, wake up around 5 AM requesting for sleeping pill. Aromatherapy given and PRN Ketolac given for pain of 3/10 as requested by pat. Strict NPO, Sips with pill per Dr. Carter. TPN administered through PICC line. pt tolerating. Turn and reposition every 2-3 hours. Denied N/V. Waiting to be transferred to [facility].
[2022-02-25 07:03] LABS: Chloride* 106 mmol/L (96-114); Potassium* 3.4 mmol/L (3.6-5.1); Sodium* 136 mmol/L (135-149)
[2022-02-25 07:06] LABS: Blood Urea Nitrogen* 40 mg/dL (7-30); Carbon Dioxide* 24 mmol/L (20-32); Creatinine* 0.9 mg/dL (0.5-1.5); Est. Creatinine Clearance* 73.99; Estimated Glomerular Filt Rate 95 ml/min
[2022-02-25 07:07] LABS: Calcium* 8.2 mg/dL (8.4-10.6); Glucose* 174 mg/dL (60-115)
[2022-02-25] MEDS: bisacodyL 10 MG SUPP.RECT PR (09:37)
[2022-02-25] MEDS: PANTOPRAZOLE SODIUM 40 MG INJ IVP (09:37)
[2022-02-25] MEDS: SODIUM CHLORIDE 0.9 % (FLUSH) 10 ML SYRINGE 5 ML IVF ×2 (09:37→19:46)
[2022-02-25] MEDS: LORazepam 2 MG/ML inj 0.5 MG IVP ×3 (09:56→22:00)
[2022-02-25 10:59] LABS: Prealbumin 6.2 mg/dL (20.0-40.0)
--- NOTE | 2022-02-25 11:21 | P.GSPN_ITS ---
Subjective Subjective Date Seen: 02/25/22 Interval history: Andrew states that his distension is better, he has no pain, chest pain shortness of breath or fever. He is not passing gas but apparently had a bowel movement yesterday. He has no nausea. He is anxious injury today he states. Yesterday he underwent attempted endoscopic NG tube placement, however this was not successful. Exam Narrative: Exam Narrative: General: Patient is mildly tremulous CV: Mild intermittent tachycardia up to 116 Respiratory: Breathing nonlabored on room air Abdomen: Distended and firm. Incisions are clean and wounds without erythema or significant drainage. These were changed today by myself. Const: Vital Signs, click to edit/add: Vital Signs - 24 hr 02/24/22 14:20 02/24/22 14:30 02/24/22 15:00 Temperature 97.9 F Pulse Rate [Pulse Oximeter] 85 86 85 Respiratory Rate 20 16 16 Blood Pressure [Ri ght Arm] 113/79 119/69 121/69 Pulse Oximetry 95 98 100 Oxygen Delivery Me thod Room Air Room Air Room Air Oxygen Flow Rate Fraction of Inspir ed Oxygen 02/24/22 17:00 02/24/22 16:00 02/24/22 19:00 Temperature 98.1 F 98.2 F Pulse Rate [Pulse Oximeter] 101 H 111 H Respiratory Rate 16 16 Blood Pressure [Ri ght Arm] 117/93 H 127/60 Pulse Oximetry 98 98 96 Oxygen Delivery Me thod Room Air Room Air Room Air Oxygen Flow Rate 1 Fraction of Inspir ed Oxygen 16 02/24/22 23:00 02/24/22 23:00 02/25/22 00:25 Temperature 97.7 F Pulse Rate [Pulse Oximeter] 98 98 Respiratory Rate 16 16 Blood Pressure [Ri ght Arm] 108/63 Pulse Oximetry 98 98 Oxygen Delivery Me thod Room Air Room Air Oxygen Flow Rate 1 Fraction of Inspir ed Oxygen 16 02/25/22 03:00 02/25/22 07:00 02/25/22 07:00 Temperature 98.3 F 98.1 F Pulse Rate [Pulse Oximeter] 102 H 116 H 116 H Respiratory Rate 16 16 16 Blood Pressure [Ri ght Arm] 127/73 123/70 Pulse Oximetry 96 95 Oxygen Delivery Me thod Room Air Room Air Oxygen Flow Rate 0 Fraction of Inspir ed Oxygen 0 Labs/Imaging Labs Labs: CRP is up to 26 from 16. Electrolytes appear to be within normal limits. Progress Note: A&P Assessment and plan (1) Anxiety: Problem details: Patient acknowledges significant and appropriate anxiety about his health. Cautious use of lorazepam for symptomatic relief. Status: Acute (2) Bacteremia associated with intravascular line: Problem details: Bacteremia with Staph epidermidis. Continue IV antibiotics with vancomycin. New PICC line today. If persistent problems concerning for bacteremia may need to visit the question of his deep brain stimulator being infected as well. Status: Acute (3) Malnutrition: Problem details: Resume TPN at previous formula Status: Acute (4) Postoperative ileus: Problem details: Increase abdominal distension. Per surgery will have NG repositioned today Status: Acute (5) Superficial incisional infection of surgical site: Problem details: Surgical incision appears to be generally doing well. Intra-abdominal fluid collection is also better. Status: Acute (6) Protein-calorie malnutrition, severe: Problem details: Continue PPN then TPN once PICC line is back in Status: Acute (7) Physical deconditioning: Problem details: Continue therapy and encourage mobility. Status: Acute (8) Status post exploratory laparotomy: Problem details: 66-year-old male s/p exposure laparotomy and revision of ileocolic anastomosis POD 15. Patient's NG tube is not in the right position. It is in the distal esophagus and we were unable to safely advance it to the stomach. I discussed with the patient that the only option we had is to attempt advancing the NG tube with the EGD scope. We attempted to do this today but were not successful despite multiple attempts. Patient's case was discussed with a surgeon at [facility] who agreed to accept him however we are waiting for [facility] surg bed to open up. For now will continue PPN or TPN if PICC line is placed today. Continue antibiotics. Continue NPO. Status: Acute (9) SBO (small bowel obstruction): Problem details: Appears more likely ileus rather than small bowel obstruction. No transition point on CT Status: Acute (10) Open abdominal wall wound: Status: Acute Plan Andrew is a 66-year-old male with persistent ileus versus obstruction after explor atory laparotomy 1 month after persistent ileus versus obstruction after colostomy takedown. His situation is very difficult in that an NG tube cannot be placed. We have tried via Radiology as well as endoscopy. He continues to have a rising CRP of unclear source. He has been on adequate treatment for catheter associated bloodstream infection. He continues on TPN. He has been accepted for transfer at [facility], however no beds have been available. We are continuing to try to make phone calls every 2 hours hoping that a bed will become available for him. Andrew is beginning to feel more anxious about his postoperative course.
[2022-02-25] MEDS: 0.9 % SODIUM CHLORIDE 250 ml IV ×2 (11:29→22:04)
[2022-02-25] MEDS: ERTAPENEM 1 GM in 0.9 % SODIUM CHLORIDE Mini-bag 100 ML IVPB (11:50)
[2022-02-25] MEDS: ENOXAPARIN 40 MG/0.4 ML INJ SUBCUT (12:51)
--- NOTE | 2022-02-25 13:52 | PM.IMPN1 ---
Progress Note: A&P Assessment and plan (1) Postoperative ileus: Problem details: No clear trend for improvement or worsening. Status: Acute (2) Status post exploratory laparotomy: Problem details: 66-year-old male s/p exposure laparotomy and revision of ileocolic anastomosis POD 15. Patient's NG tube is not in the right position. It is in the distal esophagus and we were unable to safely advance it to the stomach. I discussed with the patient that the only option we had is to attempt advancing the NG tube with the EGD scope. We attempted to do this today but were not successful despite multiple attempts. Patient's case was discussed with a surgeon at [facility] who agreed to accept him however we are [facility]. For now will continue PPN or TPN if PICC line is placed today. Continue antibiotics. Continue NPO. Status: Acute (3) SBO (small bowel obstruction): Problem details: Appears more likely ileus rather than small bowel obstruction. No transition point on CT Status: Acute (4) Malnutrition: Problem details: TPN. Status: Acute (5) Bacteremia associated with intravascular line: Problem details: Bacteremia with Staph epidermidis. Continue IV antibiotics with vancomycin. New PICC line yesterday 3 and half days after his last positive blood culture. If persistent problems concerning for bacteremia may need to visit the question of his deep brain stimulator being infected as well. Status: Acute (6) Superficial incisional infection of surgical site: Problem details: Surgical incision appears to be generally doing well. Intra-abdominal fluid collection is also better. CPK is elevated Status: Acute (7) Physical deconditioning: Problem details: Continue therapy and encourage mobility. Status: Acute (8) Anxiety: Problem details: Patient acknowledges significant and appropriate anxiety about his health. Cautious use of lorazepam for symptomatic relief. Status: Acute (9) Open abdominal wall wound: Problem details: Healing well Status: Acute (10) Depression: Problem details: Appears to be acute situational problem with prolonged hospital stay Status: Acute Plan Ongoing efforts to transfer the patient for specialty surgical care and infectious disease consultation are unsuccessful. No [facility] have available beds. Continue managing his ileus and malnutrition here. Time Spent With Patient Total time spent: 45 minutes. 30 minutes in coordination of care and and discussing with patient his and surgery ongoing management of ileus malnutrition and bacteremia Subjective Date Seen: 02/25/22 Interval history: 66-year-old male seen in followup of postoperative bowel obstruction/ileus. Yesterday attempts to reposition is NG tube apparently unsuccessful so the NG tube was removed. He reports doing fairly well overnight. His abdominal pain is manageable. He had a bowel movement yesterday but none today. He has not had any further fever. He has been refusing to get out of bed to work with therapy because he does not feel good. New PICC line was placed yesterday Exam Narrative: Exam Narrative: He is alert and appears in no distress. He is less engaged communication today I do speak with his as well today. Seems more withdrawn and resigned because of his prolonged hospital stay. Respirations are clear to auscultation. Cardiovascular: S1, S2, regular rate and rhythm. Abdomen: Diminished bowel sounds. Abdomen is soft but mildly distended. Incisions are very clean small wound packing in each incision without significant erythema. Extremities without edema. He is observed to have tremor today consistent with his Parkinson's Const: Vital Signs, click to edit/add: Vital Signs - 24 hr 02/24/22 14:20 02/24/22 14:30 02/24/22 15:00 Temperature 97.9 F Pulse Rate [Pulse Oximeter] 85 86 85 Respiratory Rate 20 16 16 Blood Pressure [Ri ght Arm] 113/79 119/69 121/69 Pulse Oximetry 95 98 100 Oxygen Delivery Me thod Room Air Room Air Room Air Oxygen Flow Rate Fraction of Inspir ed Oxygen 02/24/22 17:00 02/24/22 16:00 02/24/22 19:00 Temperature 98.1 F 98.2 F Pulse Rate [Pulse Oximeter] 101 H 111 H Respiratory Rate 16 16 Blood Pressure [Ri ght Arm] 117/93 H 127/60 Pulse Oximetry 98 98 96 Oxygen Delivery Me thod Room Air Room Air Room Air Oxygen Flow Rate 1 Fraction of Inspir ed Oxygen 16 02/24/22 23:00 02/24/22 23:00 02/25/22 00:25 Temperature 97.7 F Pulse Rate [Pulse Oximeter] 98 98 Respiratory Rate 16 16 Blood Pressure [Ri ght Arm] 108/63 Pulse Oximetry 98 98 Oxygen Delivery Me thod Room Air Room Air Oxygen Flow Rate 1 Fraction of Inspir ed Oxygen 16 02/25/22 03:00 02/25/22 07:00 02/25/22 07:00 Temperature 98.3 F 98.1 F Pulse Rate [Pulse Oximeter] 102 H 116 H 116 H Respiratory Rate 16 16 16 Blood Pressure [Ri t Arm] 127/73 123/70 Pulse Oximetry 96 95 Oxygen Delivery Me thod Room Air Room Air Oxygen Flow Rate 0 Fraction of Inspir ed Oxygen 0 02/25/22 09:00 02/25/22 11:00 Temperature 98.8 F Pulse Rate [Pulse Oximeter] 101 H Respiratory Rate 16 [facility] 129/83 Pulse Oximetry 98 98 Oxygen Delivery Me thod Room Air Room Air Oxygen Flow Rate 0 0 Fraction of Inspir ed Oxygen 0 Documenting provider has reviewed patient's vital signs: yes Labs Labs: Laboratory Results - last 24 hr 02/24/22 02/25/22 06:36 06:15 Sodium 136 Potassium 3.4 L Chloride 106 Carbon Dioxide 24 BUN 40 H Creatinine 0.9 Estimated Creat Clear 73.99 Estimated GFR 95 Glucose 174 H Calcium 8.2 L C-Reactive Protein 26.0 H Prealbumin 6.2 L
[2022-02-25] MEDS: HYDROmorphone 0.5 mg/0.5 ml inj IVP ×3 (14:07→22:01)
--- NOTE | 2022-02-25 18:00 | PC.NURSE ---
02/25 called the transfer call list 4 times. no beds
--- NOTE | 2022-02-25 19:53 | PC.NURSE ---
Pt very weak today, heavy assist of 2 from bed to commode. Turn and repo in bed q2h. Initally refused OT, OT did revisit and patient willing to brush teeth and wash up. PICC to MARITO patent and TPN running. Lipids hung at 1800, new TPN due at 2100. Abdominal dressings changed today by Dr. Vicente. continue to await bed availability from [facility]. Continue NPO - only oral med is Sinemet. Pt given ativan q6 for anxiety, pt verbalized it's helping a little bit. hands appear mottled, cap refill >3 seconds. Tachy - HR 116 for inital assessment but did decrease to 100-105 throughout day. afebrile however patient feels hot then cold. Continue Vanco and ertependem. toradol for pain. BG q6h while on TPN - see emar for novolog. last BG this evening 155, pt opted out of novolog for 1800. refusing TEDS/SCDs. Spouse in to visit this evening. Report given to JAMAL Rivera.
[2022-02-25] MEDS: AA 5 %/CALCIUM/LYTES/DEXT 20 % 2,000 ML 80 ML IVPB (21:52)
[2022-02-25] MEDS: CITALOPRAM HYDROBROMIDE 20 MG TABLET PO (21:56)
[2022-02-25] MEDS: PRAVASTATIN 80 MG TABLET 1 EACH PO (21:58)
[2022-02-25] MEDS: SIMETHICONE 80 MG TAB.CHEW PO (21:59)
[2022-02-25] MEDS: MELATONIN 3 MG TABLET PO (22:00)
[2022-02-26 01:00] VITALS: O2SAT 97
[2022-02-26 03:50] VITALS: BP 129/82; PULSE 106; RESP 16; TEMP 37.1; O2SAT 94
[2022-02-26] MEDS: LORazepam 2 MG/ML inj 0.5 MG IVP ×3 (04:39→13:27)
[2022-02-26] MEDS: KETOROLAC 15 MG/ML inj IVP (04:39)
--- NOTE | 2022-02-26 06:37 | PC.NURSE ---
Shift Note -: pt pleasant and cooperative, VSS, afebrile, LS clear, BS active, pt denies passing gas. PICC line is asymptomatic and patent with TPN and lipids running, PIV in L AC asymptomatic and patent. See eMAR for medication administration.
[2022-02-26 07:00] VITALS: BP 113/99; PULSE 101; PULSE 106; RESP 16; TEMP 36.8; O2SAT 94
[2022-02-26 07:22] LABS: C Reactive Protein* 18.9 mg/dL (0.5-1.0)
[2022-02-26] MEDS: SODIUM CHLORIDE 0.9 % (FLUSH) 10 ML SYRINGE 5 ML IVF (08:32)
[2022-02-26] MEDS: bisacodyL 10 MG SUPP.RECT PR (08:32)
[2022-02-26] MEDS: PANTOPRAZOLE SODIUM 40 MG INJ IVP (08:32)
[2022-02-26 09:00] VITALS: RESP 16; O2SAT 94
[2022-02-26] MEDS: HYDROmorphone 0.5 mg/0.5 ml inj IVP ×2 (10:23→13:26)
[2022-02-26 11:00] VITALS: BP 129/70; PULSE 99; RESP 16; TEMP 37.1; O2SAT 94
--- NOTE | 2022-02-26 11:23 | PC.NURSE ---
called for transfer @ 0830 and 1100 no beds called 14 places called
[2022-02-26] MEDS: ERTAPENEM 1 GM in 0.9 % SODIUM CHLORIDE Mini-bag 100 ML IVPB (12:06)
--- NOTE | 2022-02-26 13:21 | P.DS_ITS ---
DS: Providers Provider Date of admission: 02/03/22 10:38 Primary care physician: Samantha Stauffer MD Admitting Clinician: Shani Carter MD Consults: 02/02/22 13:05 Consult to Nutrition [CONS] Routine Comment: Reason for consult:: Nutritional Consult Comment: TPN 02/02/22 13:06 Consult to Occupational Therapy [CONS] Routine Comment: Reason(s) for OT Consult:: Evaluate and Treat Any Restrictions?:: No Restrictions Consult to Physical Therapy [CONS] Routine Comment: Reason(s) for PT Consult:: Evaluate and Treat Any Restrictions?:: No Restrictions Consult to Test Skein Winder [CONS] Routine Comment: Reason for Consult:: Social Service Consult Attending Physician on discharge: Shani Caretr MD DS: Summary Hospital Course Hospital Course: The patient is a 66-year-old male with a history of Parkinson's disease who was admitted to our hospital on 02/02/2022 with postop bowel obstruction after ileostomy takedown. 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 He was deemed a candidate for ileostomy takedown and this was done on 01/10/2022. Postoperatively, was discharged home after 7 days, having had return of bowel function. After this, he had repeated visits to clinic and the emergency department with nausea and dysphagia. On 02/02/2022, he was readmitted to the hospital with essentially failure to thrive because he was progressively weak and had not been able to eat because of significant nausea. He had been having bowel movements throughout this period, however. CT scan showed diffusely dilated bowel, primarily small bowel but also portions of colon. There was also inflammatory change around the anastomotic site with possible narrowing from anastomotic stricture. He was made NPO and continued to have bowel movements. C difficile was negative. PICC line was placed and TPN was started. Five days later, the patient having reached approximately the 4 week month postop, an upper GI with small-bowel follow-through was performed. This showed distended loops of small bowel with nondistention of the colon. Contrast was within the jejunum at 23 hours post contrast, with concern for bowel obstruction. Because his abdominal distension did not improve and he now had minimal to no antegrade bowel function, he was taken back to the operating room on 02/08/2022. There there was an adhesion between the small bowel and the anastomosis which was taken down. The anastomosis was also revised at this time. His ileocolic anastomosis was resected and sent to pathology.? Pathology showed an abscess at the anastomosis although there was no presence of an abscess intraoperatively.? Patient was treated with NPO and NG tube for multiple days.? His NG tube was clamped and he tolerated well.? He was advanced to clear liquid diet with clamped NG tube in place and tolerated that well.? He continued to pass gas and have liquid bowel movements.? However, several days after his NG was removed and his diet was advanced, patient again developed abdominal distension.? He was still passing gas but had a lot of nausea and vomiting.? Patient was then placed again NPO with continue TPN. Patient developed a surgical site infection at his midline laparotomy incision.? 3 different areas of midline incision were opened and treated with packings.? Patient was treated with Zosyn.? His surgical site infection improved.? However patient developed a fever and grew Staph epidermidis in peripheral culture.? Vancomycin was added for antibiotic coverage.? Since 2 of the peripheral cultures grew the same organism, his PICC line was removed and he was given a line holiday.? He continued to be on IV antibiotics.? Patient was then treated with PPN.? His abdomen continued to be distended and he continued to have gas and liquid stools. On 02/18/[address] was obtained that showed a small fluid collection in the right upper quadrant with inflammation in the right upper quadrant.? Patient's small intestine was largely dilated.? His ileocolic anastomosis appeared to be patent.? The fluid collection was near the gallbladder and subhepatic and was not thought to be amenable to percutaneous drainage.? We continued treatment with antibiotics and bowel rest.? A repeat CT on 02/23/2022 showed resolution of small fluid collection however the inflammation in the right upper quadrant was still present.? Patient continued to have dilated stomach and small intestine. Due to his abdominal distension, an attempt was made to place his NG tube at bedside.? Patient has a history of Heller myotomy 2 years ago.? After multiple unsuccessful attempts of repositioning and advanding the NG tube, this was removed.? On 02/23/[address] NG tube under fluoroscopic guidance.? However the tube was coiling in the esophagus and it was difficult to advance into the stomach passed GE junction.? With contrast injected through the tube we were able to see that the stomach opacified however the tube did not advance easily into the stomach and the tip of the NG tube was left at the GE junction.? Suction was applied to NG tube and about 900 mL total of fluid were aspirated through this NG tube.? However the tube was coiled in the esophagus and it was pulled back.? We attempted to replace NG tube with EGD however this was also not successful. Patient continued to be NPO. His PICC line was replaced on 02/24. Time Spent with Patient Time attestation: Total time spent providing and/or coordinating discharge services: Exam Const: Vital Signs, click to edit/add: Vital Signs - 24 hr 02/25/22 15:00 02/25/22 15:00 02/25/22 19:34 Temperature 98.3 F 99.1 F Pulse Rate [Pulse Oximeter] 101 H 103 H 107 H Respiratory Rate 16 16 20 Blood Pressure [Ri ght Arm] 118/69 132/89 Pulse Oximetry 97 98 Oxygen Delivery Me thod Room Air Room Air Oxygen Flow Rate 0 Fraction of Inspir ed Oxygen 0 02/25/22 17:00 02/25/22 22:49 02/26/22 01:00 Temperature 98.3 F Pulse Rate [Pulse Oximeter] 101 H Respiratory Rate 18 20 Blood Pressure [Ri ght Arm] 117/69 Pulse Oximetry 98 93 97 Oxygen Delivery Or thod Room Air Room Air Room Air Oxygen Flow Rate 0 Fraction of Inspir ed Oxygen 0 02/26/22 03:50 02/25/22 23:00 02/26/22 07:00 Temperature 98.8 F 98.3 F Pulse Rate [Pulse Oximeter] 106 H 106 H 106 H Respiratory Rate 16 16 16 Blood Pressure [Ri ght Arm] 129/82 113/99 H Pulse Oximetry 94 94 Oxygen Delivery Me thod Room Air Room Air Oxygen Flow Rate 0 Fraction of Inspir ed Oxygen 0 02/26/22 07:00 02/26/22 09:00 Temperature Pulse Rate [Pulse Oximeter] 101 H Respiratory Rate 16 16 Blood Pressure [Ri ght Arm] Pulse Oximetry 94 Oxygen Delivery Me thod Room Air Oxygen Flow Rate 0 Fraction of Inspir ed Oxygen 0 DS: Data Data Completed and Pending Completed studies during hospitalization: Procedures Excision of Ileum, Open Approach (01/10/22) Repair Abdominal Wall, Stoma, External Approach (01/10/22) Labs on day of discharge: Labs from last 24 hours 02/26/22 06:21 C-Reactive Protein 18.9 H Preliminary micro results at discharge 02/25/22 06:15 Blood Culture - Preliminary Blood NO GROWTH AFTER 24 HOURS 02/23/22 06:06 Blood Culture - Preliminary Blood NO GROWTH AFTER 72 HOURS Discharge Plan Discharge Date of Admission: 02/03/22 10:38 Attending Physician on Admission: Shani Carter Primary Care Provider: Samantha Stauffer Discharge Medications: No Action amantadine HCl 137 mg capsule,extended release 24hr 274 mg PO HS carbidopa-levodopa 61.25-245 mg capsule, extended release 1 cap PO QID citalopram 10 mg tablet 10 mg PO DAILY ondansetron 4 mg tablet,disintegrating 4 mg PO Q8H PRN omeprazole 40 mg capsule,delayed release(DR/EC) 40 mg PO BID Qty: 180 4RF simethicone [Mylanta Gas] 125 mg tablet,chewable 125 - 250 mg PO BID PRN carbidopa-levodopa 25-100 mg tablet 1 tab PO BID PRN pravastatin 80 mg tablet 80 mg PO HS polyethylene glycol 3350 [Miralax] 17 gram/dose powder 17 g PO DAILY Qty: 119 0RF sodium chloride 1,000 mg Tablet,Soluble 1 g PO TID Qty: 30 0RF sodium chloride 1 gram tablet 1,000 mg PO TID PRN (Reason: electrolyte replenishment) Qty: 30 0RF Follow Up Appointments: Samantha Stauffer MD [Primary Care Provider] - Hospital Course: The patient is a 66-year-old male with a history of Parkinson's disease who was admitted to our hospital on 02/02/2022 with postop bowel obstruction after ileostomy takedown. 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 He was deemed a candidate for ileostomy takedown and this was done on 01/10/2022. Postoperatively, was discharged home after 7 days, having had return of bowel function. After this, he had repeated visits to clinic and the emergency department with nausea and dysphagia. On 02/02/2022, he was readmitted to the hospital with essentially failure to thrive because he was progressively weak and had not been able to eat because of significant nausea. He had been having bowel movements throughout this period, however. CT scan showed diffusely dilated bowel, primarily small bowel but also portions of colon. There was also inflammatory change around the anastomotic site with possible narrowing from anastomotic stricture. He was made NPO and continued to have bowel movements. C difficile was negative. PICC line was placed and TPN was started. Five days later, the patient having reached approximately the 4 week month postop, an upper GI with small-bowel follow- through was performed. This showed distended loops of small bowel with nondistention of the colon. Contrast was within the jejunum at 23 hours post contrast, with concern for bowel obstruction. Because his abdominal distension did not improve and he now had minimal to no antegrade bowel function, he was taken back to the operating room on 02/08/2022. There there was an adhesion between the small bowel and the anastomosis which was taken down. The anastomosis was also revised at this time. His ileocolic anastomosis was resected and sent to pathology.? Pathology showed an abscess at the anastomosis although there was no presence of an abscess intraoperatively.? Patient was treated with NPO and NG tube for multiple days.? His NG tube was clamped and he tolerated well.? He was advanced to clear liquid diet with clamped NG tube in place and tolerated that well.? He continued to pass gas and have liquid bowel movements.? However, several days after his NG was removed and his diet was advanced, patient again developed abdominal distension.? He was still passing gas but had a lot of nausea and vomiting.? Patient was then placed again NPO with continue TPN. Patient developed a surgical site infection at his midline laparotomy incision.? 3 different areas of midline incision were opened and treated with packings.? Patient was treated with Zosyn.? His surgical site infection improved.? However patient developed a fever and grew Staph epidermidis in peripheral culture.? Vancomycin was added for antibiotic coverage.? Since 2 of the peripheral cultures grew the same organism, his PICC line was removed and he was given a line holiday.? He continued to be on IV antibiotics.? Patient was then treated with PPN.? His abdomen continued to be distended and he continued to have gas and liquid stools. On 02/18/[address] was obtained that showed a small fluid collection in the right upper quadrant with inflammation in the right upper quadrant.? Patient's small intestine was largely dilated.? His ileocolic anastomosis appeared to be patent.? The fluid collection was near the gallbladder and subhepatic and was not thought to be amenable to percutaneous drainage.? We continued treatment with antibiotics and bowel rest.? A repeat CT on 02/23/2022 showed resolution of small fluid collection however the inflammation in the right upper quadrant was still present.? Patient continued to have dilated stomach and small intestine. Due to his abdominal distension, an attempt was made to place his NG tube at bedside.? Patient has a history of Heller myotomy 2 years ago.? After multiple unsuccessful attempts of repositioning and advanding the NG tube, this was removed.? On 02/23/[address] NG tube under fluoroscopic guidance.? However the tube was coiling in the esophagus and it was difficult to advance into the stomach passed GE junction.? With contrast injected through the tube we were able to see that the stomach opacified however the tube did not advance easily into the stomach and the tip of the NG tube was left at the GE junction.? Suction was applied to NG tube and about 900 mL total of fluid were aspirated through this NG tube.? However the tube was coiled in the esophagus and it was pulled back.? We attempted to replace NG tube with EGD however this was also not successful. Patient continued to be NPO. His PICC line was replaced on 02/24.
[2022-02-26] MEDS: ENOXAPARIN 40 MG/0.4 ML INJ SUBCUT (13:26)
--- NOTE | 2022-02-26 13:59 | PM.GSPN ---
Subjective Subjective Date Seen: 02/26/22 Interval history: Andrew continues to feel distended and Hiccup. No bowel movement since yesterday. Remains persistently mildly tachycardic with a heart rate in the low 100s. He is afebrile. Exam Narrative: Exam Narrative: General: No acute distress. Cachectic CV: Mildly tachycardic at 100-110 Respiratory: Breathing nonlabored on room air Abdomen: Distended. Three small openings in midline incision are clean without erythema or drainage. Stoma site incision is also clean without erythema or drainage. Neuro: Tremulous Const: Vital Signs, click to edit/add: Vital Signs - 24 hr 02/25/22 15:00 02/25/22 15:00 02/25/22 19:34 Temperature 98.3 F 99.1 F Pulse Rate [Pulse Oximeter] 101 H 103 H 107 H Respiratory Rate 16 16 20 Blood Pressure [Ri ght Arm] 118/69 132/89 Pulse Oximetry 97 98 Oxygen Delivery Me thod Room Air Room Air Oxygen Flow Rate 0 Fraction of Inspir ed Oxygen 0 02/25/22 17:00 02/25/22 22:49 02/26/22 01:00 Temperature 98.3 F Pulse Rate [Pulse Oximeter] 101 H Respiratory Rate 18 20 Blood Pressure [Ri ght Arm] 117/69 Pulse Oximetry 98 93 97 Oxygen Delivery Me thod Room Air Room Air Room Air Oxygen Flow Rate 0 Fraction of Inspir ed Oxygen 0 02/26/22 03:50 02/25/22 23:00 02/26/22 07:00 Temperature 98.8 F 98.3 F Pulse Rate [Pulse Oximeter] 106 H 106 H 106 H Respiratory Rate 16 16 16 Blood Pressure [Ri ght Arm] 129/82 113/99 H Pulse Oximetry 94 94 Oxygen Delivery Me thod Room Air Room Air Oxygen Flow Rate 0 Fraction of Inspir ed Oxygen 0 02/26/22 07:00 02/26/22 09:00 Temperature Pulse Rate [Pulse Oximeter] 101 H Respiratory Rate 16 16 Blood Pressure [Ri ght Arm] Pulse Oximetry 94 Oxygen Delivery Me thod Room Air Oxygen Flow Rate 0 Fraction of Inspir ed Oxygen 0 Labs/Imaging Labs Labs: CRP is down today to 16 Progress Note: A&P Assessment and plan (1) Anxiety: Problem details: Patient acknowledges significant and appropriate anxiety about his health. Cautious use of lorazepam for symptomatic relief. Status: Acute (2) Bacteremia associated with intravascular line: Problem details: Bacteremia with Staph epidermidis. Continue IV antibiotics with vancomycin. New PICC line yesterday 3 and half days after his last positive blood culture. If persistent problems concerning for bacteremia may need to visit the question of his deep brain stimulator being infected as well. Status: Acute (3) Superficial incisional infection of surgical site: Problem details: Surgical incision appears to be generally doing well. Intra-abdominal fluid collection is also better. CPK is elevated Status: Acute (4) Open abdominal wall wound: Problem details: Healing well Status: Acute (5) Status post exploratory laparotomy: Problem details: 66-year-old male s/p exposure laparotomy and revision of ileocolic anastomosis POD 15. Patient's NG tube is not in the right position. It is in the distal esophagus and we were unable to safely advance it to the stomach. I discussed with the patient that the only option we had is to attempt advancing the NG tube with the EGD scope. We attempted to do this today but were not successful despite multiple attempts. Patient's case was discussed with a surgeon at [facility] who agreed to accept him however we are waiting for [facility] bed to open up. For now will continue PPN or TPN if PICC line is placed today. Continue antibiotics. Continue NPO. Status: Acute (6) Postoperative ileus: Problem details: No clear trend for improvement or worsening. Status: Acute Plan Andrew is a 66-year-old male with persistent obstruction/ileus and inability to place NG tube for decompression was worsening obstruction. Attempts have been made to transfer him to tertiary care facility after failed attempts at NG tube placement here at our facility. He was initially accepted at [facility], however for 48 hours they have not had any bed availability. [facility] in no clear has accepted the patient. We will plan on transferring him there after discussion with the patient and his who agreed. His history is as follows for communication purposes: The patient is a 66-year-old male with a history of Parkinson's disease who was admitted to our hospital on 02/02/2022 with postop bowel obstruction after ileostomy takedown. 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 He was deemed a candidate for ileostomy takedown and this was done on 01/10/2022. Postoperatively, was discharged home after 7 days, having had return of bowel function. After this, he had repeated visits to clinic and the emergency department with nausea and dysphagia. On 02/02/2022, he was readmitted to the hospital with essentially failure to thrive because he was progressively weak and had not been able to eat because of significant nausea. He had been having bowel movements throughout this period, however. CT scan showed diffusely dilated bowel, primarily small bowel but also portions of colon. There was also inflammatory change around the anastomotic site with possible narrowing from anastomotic stricture. He was made NPO and continued to have bowel movements. C difficile was negative. PICC line was placed and TPN was started. Five days later, the patient having reached approximately the 4 week month postop, an upper GI with small-bowel follow-through was performed. This showed distended loops of small bowel with nondistention of the colon. Contrast was within the jejunum at 23 hours post contrast, with concern for bowel obstruction. Because his abdominal distension did not improve and he now had minimal to no antegrade bowel function, he was taken back to the operating room on 02/08/2022. There there was an adhesion between the small bowel and the anastomosis which was taken down. The anastomosis was also revised at this time. His ileocolic anastomosis was resected and sent to pathology.? Pathology showed an abscess at the anastomosis although there was no presence of an abscess intraoperatively.? Patient was treated with NPO and NG tube for multiple days.? His NG tube was clamped and he tolerated well.? He was advanced to clear liquid diet with clamped NG tube in place and tolerated that well.? He continued to pass gas and have liquid bowel movements.? On 02/16, his NG tube was removed as he tolerated clamping 48 hours and tolerated a liquid diet. Unfortunately, 2 days later he began again to have nausea and distension. He was then made NPO except for his Parkinson's medications. Patient developed a surgical site infection at his midline laparotomy incision.? 3 different areas of midline incision were opened and treated with packing.? Patient was treated with Zosyn.? His surgical site infection improved.? However patient developed a fever and grew Staph epidermidis in a peripheral blood culture.? Vancomycin was added for antibiotic coverage.? Since 2 of the peripheral cultures grew the same organism, his PICC line was removed and he was given a line holiday.? He continued to be on IV antibiotics.? Patient was treated with PPN during this time.? His PICC line was replaced on 02/24/22 after a line holiday and TPN was resumed. His abdomen continued to be distended and he had hiccups and nausea, though he continued to have gas and liquid stools so his diet was not advanced. On 02/18/[address] was obtained that showed a small fluid collection in the right upper quadrant with inflammation in the right upper quadrant.? Patient's small intestine was largely dilated.? His ileocolic anastomosis appeared to be patent.? The fluid collection was near the gallbladder and subhepatic and was not thought to be amenable to percutaneous drainage.? We continued treatment with antibiotics and bowel rest.? A repeat CT on 02/23/2022 showed resolution of small fluid collection however the inflammation in the right upper quadrant was still present.? Patient continued to have dilated stomach and small intestine. Due to his abdominal distension, an attempt was made to place his NG tube at bedside.? Patient has a history of Heller myotomy 2 years ago.? After multiple unsuccessful attempts of repositioning and advancing the NG tube, this was removed.? On 02/23/2022 NG tube placement was attempted under fluoroscopic guidance, however the tube was coiling in the esophagus and it could not be advanced past the GE junction. Suction was applied to NG tube and about 900 mL total of fluid were aspirated through this NG tube.? However the tube was coiled in the esophagus and it was pulled back.? We attempted to replace NG tube with EGD on 02/24/22, however this was also not successful. The patient continued to be increasingly distended with mild tachycardia and CRP which was trending up. He was still passing a very small amount of stool but not passing any gas from below. He continued to have hiccups. Having exhausted all of our options, it was felt that he would benefit from transfer to a tertiary care facility where potentially IR and or gastroenterology could place an NG, and weigh in on his motility issues. On the day of discharge, he continues to have nausea and hiccups as well as abdominal distension. He has not had a bowel movement in 24 hours. Heart rate is only mildly elevated at 100. He has been afebrile and his CRP has trended down to 16 from 26.
--- NOTE | 2022-02-26 15:19 | PC.NURSE ---
OBINNA COMPLETED WOUND DRESSING CHANGE TO ABDOMEN. OBINNA AND CELENA IN ROOM TO DISCUSS D/C PLAN. ATIVAN FOR ANXIETY. DILAUDID FOR PN. HYPO BS. LS CTA, DIM. IS ENCOURAGED, SPOUSE IN ROOM AND ASSISTING. IV PLACED BY AZUCENA FITZGERALD SUP TO LEFT AC. IV TO R AC LEAKING, REPOSITIONED AND ABLE TO USE AT THIS TIME. PICC TO MARITO WITH TPN RUNNING. TURN AND REPO IN BED, EZ STAND FOR BSC. PT ACCEPTED TO [facility] IN [place]. NURSE TO NURSE CALLED TO [facility] AT . SPOUSE CHERIE UPDATED UPON PT D/C FROM UNIT. PT DISCHARGED AT 1459 VIA STRETCHER WITH EMS.
--- NOTE | 2022-02-26 16:03 | P.DS_ITS ---
DS: Providers Provider Date Seen: 02/26/22 Date of admission: 02/03/22 10:38 Primary care physician: Samantha Stauffer MD Admitting Clinician: Shani Carter MD Consults: 02/02/22 13:05 Consult to Nutrition [CONS] Routine Comment: Reason for consult:: Nutritional Consult Comment: TPN 02/02/22 13:06 Consult to Occupational Therapy [CONS] Routine Comment: Reason(s) for OT Consult:: Evaluate and Treat Any Restrictions?:: No Restrictions Consult to Physical Therapy [CONS] Routine Comment: Reason(s) for PT Consult:: Evaluate and Treat Any Restrictions?:: No Restrictions Consult to Hydraulic Rock Drill Operator [CONS] Routine Comment: Reason for Consult:: Social Service Consult Attending Physician on discharge: Denisha Marley MD [facility] Date of Discharge: 02/26/22 DS: Diagnosis Discharge Diagnosis (1) Postoperative ileus: Status: Acute Problem details: No clear trend for improvement or worsening. (2) Protein-calorie malnutrition, severe: Status: Acute Problem details: TPN (3) Status post exploratory laparotomy: Status: Acute Problem details: 66-year-old male s/p exposure laparotomy and revision of ileocolic anastomosis POD 15. Patient's NG tube is not in the right position. It is in the distal esophagus and we were unable to safely advance it to the stomach. I discussed with the patient that the only option we had is to attempt advancing the NG tube with the EGD scope. We attempted to do this today but were not successful despite mu ltiple attempts. Patient's case was discussed with a surgeon at [facility] who agreed to accept him however we are waiting for [facility] surg bed to open up. For now will continue PPN or TPN if PICC line is placed today. Continue antibiotics. Continue NPO. (4) SBO (small bowel obstruction): Status: Acute Problem details: Appears more likely ileus rather than small bowel obstruction. No transition point on CT (5) Achalasia of esophagus: Status: Chronic (6) Parkinson's disease: Status: Chronic Problem details: Continue physical therapy and encourage mobility here in the hospital (7) Bacteremia associated with intravascular line: Status: Acute Problem details: Bacteremia with Staph epidermidis. Continue IV antibiotics with vancomycin. New PICC line yesterday 3 and half days after his last positive blood culture. If persistent problems concerning for bacteremia may need to visit the question of his deep brain stimulator being infected as well. DS: Summary Hospital Course Hospital Course: HOSPITALIST TRANSFER SUMMARY (THIS SERVES HIS DISCHARGE SUMMARY OF A 23 DAY HOSPITALIZATION) ATTENDING PHYSICIAN: Denisha Marley MD REASON FOR TRANSFER Need for Interventional Radiology or gastroenterology expertise for NG tube placement Motility specialist/gastroenterology Multi disciplinary tertiary care BRIEF HOSPITAL COURSE: Andrew has been on our service for 23 days. He was admitted after his routine ileostomy takedown, which was uncomplicated, however he could not progress on his p.o. intake and became weak and dehydrated. Once admitted he was noted to have a small-bowel obstruction versus severe ileus. Conservative care was pursued. Ultimately he went to surgery for an exploratory laparotomy on February 08. Lysis adhesion and anastomosis revision was completed. NG tube was placed. Initially we thought he had improved, NG tube was withdrawn. He then became distended and had poor p.o. intake. He had a PICC line placed early on for bowel rest and nutrition needs. This line became infected and he grew Staph epi in his blood cultures. His line holiday was 3 days. A new PICC line was placed and TPN was continued. However his distension both in the small bowel and colon continued. Several attempts and an NG tube were unsuccessful. We felt his weakness and overall health was declining. We had pursued teritary care placement for several days. Finely on February 26, [facility] [place], accepted care. General surgery noted the following: On 06/20/2021 he underwent exploratory laparotomy, right hemicolectomy, fecal disimpaction and created of end ileostomy with mucous fistula for ascending colon perforation secondary to fecal impaction. He was deemed a candidate for ileostomy takedown and this was done on 01/10/2022. Postoperatively, was discharged home after 7 days, having had return of bowel function. After this, he had repeated visits to clinic and the emergency department with nausea and dysphagia. On 02/02/2022, he was readmitted to the hospital with essentially failure to thrive because he was progressively weak and had not been able to eat because of significant nausea. He had been having bowel movements throughout this period, however. CT scan showed diffusely dilated bowel, primarily small bowel but also portions of colon. There was also inflammatory change around the anastomotic site with possible narrowing from anastomotic stricture. He was made NPO and continued to have bowel movements. C difficile was negative. PICC line was placed and TPN was started. Five days later, the patient having reached approximately the 4 week month postop, an upper GI with small-bowel follow-through was performed. This showed distended loops of small bowel with nondistention of the colon. Contrast was within the jejunum at 23 hours post contrast, with concern for bowel obstruction. Because his abdominal distension did not improve and he now had minimal to no antegrade bowel function, he was taken back to the operating room on 02/08/2022. There there was an adhesion between the small bowel and the anastomosis which was taken down. The anastomosis was also revised at this time. His ileocolic anastomosis was resected and sent to pathology.? Pathology showed an abscess at the anastomosis although there was no presence of an abscess intraoperatively.? Patient was treated with NPO and NG tube for multiple days.? His NG tube was clamped and he tolerated well.? He was advanced to clear liquid diet with clamped NG tube in place and tolerated that well.? He continued to pass gas and have liquid bowel movements.? However, several days after his NG was removed and his diet was advanced, patient again developed abdominal distension.? He was still passing gas but had a lot of nausea and vomiting.? Patient was then placed again NPO with continue TPN. Patient developed a surgical site infection at his midline laparotomy incision.? 3 different areas of midline incision were opened and treated with packings.? Patient was treated with Zosyn.? His surgical site infection improved.? However patient developed a fever and grew Staph epidermidis in peripheral culture.? Vancomycin was added for antibiotic coverage.? Since 2 of the peripheral cultures grew the same organism, his PICC line was removed and he was given a line holiday.? He continued to be on IV antibiotics.? Patient was then treated with PPN.? His abdomen continued to be distended and he continued to have gas and liquid stools. On 02/18/[address] was obtained that showed a small fluid collection in the right upper quadrant with inflammation in the right upper quadrant.? Patient's small intestine was largely dilated.? His ileocolic anastomosis appeared to be patent.? The fluid collection was near the gallbladder and subhepatic and was not thought to be amenable to percutaneous drainage.? We continued treatment with antibiotics and bowel rest.? A repeat CT on 02/23/2022 showed resolution of small fluid collection however the inflammation in the right upper quadrant was still present.? Patient continued to have dilated stomach and small intestine. Due to his abdominal distension, an attempt was made to place his NG tube at bedside.? Patient has a history of Heller myotomy 2 years ago.? After multiple unsuccessful attempts of repositioning and advanding the NG tube, this was removed.? On 02/23/[address] NG tube under fluoroscopic guidance.? However the tube was coiling in the esophagus and it was difficult to advance into the stomach passed GE junction.? With contrast injected through the tube we were able to see that the stomach opacified however the tube did not advance easily into the stomach and the tip of the NG tube was left at the GE junction.? Suction was applied to NG tube and about 900 mL total of fluid were aspirated through this NG tube.? However the tube was coiled in the esophagus and it was pulled back.? We attempted to replace NG tube with EGD however this was also not successful. Patient continued to be NPO. His PICC line was replaced on 02/24. SERVICES NOT AVAILABLE HERE THAT HIS PATIENT NEEDS: Interventional radiology/gastroenterology for placement of an NG tube that is technically difficult secondary to chronic achalasia Gastroenterology motility expert Tertiary Care, multi disciplinary team ACCEPTING PHYSICIAN/SERVICE/LOCATION: Hospitalist service and general surgeon Dr. Sanchez at [place] MEDICATIONS AT TIME OF TRANSFER: IV vancomycin, ertapenem (bacteremia from PICC line) TPN and fat emulsion Amantadine and Sinemet p.o. for Parkinson's Celexa, pravastatin, pantoprazole Ativan and Dilaudid for anxiety and pain DRIPS/LINES: TPN via PICC line VITAL SIGN, MEDICATION, LAB/MICRO, IMAGING SUMMARY (full details available in a ccount tabs or by records request) Vital signs were stable and he was on room air at transfer. REVIEW OF SYSTEMS Unchanged. PHYSICAL EXAM: CONSTITUTIONAL: Cachectic, pale, weak. VITAL SIGNS: see record. Exam unchanged from earlier with notable exceptions: Distension continues abdominal it. DISPOSITION: ground transfer, ACLS, from [place] to [place] Time spent on discharge >30 minutes. This includes speaking with accepting physician; family/patient and coordinating meds/drips for transfer Status at Discharge Functional status at discharge: bed bound Overall status at discharge: patient is back to baseline Time Spent with Patient Time attestation: Total time spent providing and/or coordinating discharge services: Time spent: Greater than 30 minutes Exam Const: Vital Signs, click to edit/add: Vital Signs - 24 hr 02/25/22 19:34 02/25/22 17:00 02/25/22 22:49 Temperature 99.1 F 98.3 F Pulse Rate [Pulse Oximeter] 107 H 101 H Respiratory Rate 20 18 20 Blood Pressure [Ri ght Arm] 132/89 117/69 Pulse Oximetry 98 98 93 Oxygen Delivery Me thod Room Air Room Air Room Air Oxygen Flow Rate 0 Fraction of Inspir ed Oxygen 0 02/26/22 01:00 02/26/22 03:50 02/25/22 23:00 Temperature 98.8 F Pulse Rate [Pulse Oximeter] 106 H 106 H Respiratory Rate 16 16 Blood Pressure [Ri ght Arm] 129/82 Pulse Oximetry 97 94 Oxygen Delivery Me thod Room Air Room Air Oxygen Flow Rate Fraction of Inspir ed Oxygen 02/26/22 07:00 02/26/22 07:00 02/26/22 09:00 Temperature 98.3 F Pulse Rate [Pulse Oximeter] 106 H 101 H Respiratory Rate 16 16 16 Blood Pressure [Ri ght Arm] 113/99 H Pulse Oximetry 94 94 Oxygen Delivery Me thod Room Air Room Air Oxygen Flow Rate 0 0 Fraction of Inspir ed Oxygen 0 0 02/26/22 11:00 Temperature 98.7 F Pulse Rate [Pulse Oximeter] 99 Respiratory Rate 16 Blood Pressure [Ri ght Arm] 129/70 Pulse Oximetry 94 Oxygen Delivery Me thod Room Air Oxygen Flow Rate 0 Fraction of Inspir ed Oxygen 0 DS: Data Data Completed and Pending Completed studies during hospitalization: Procedures Excision of Ileum, Open Approach (01/10/22) Repair Abdominal Wall, Stoma, External Approach (01/10/22) Labs on day of discharge: Labs from last 24 hours 02/26/22 06:21 C-Reactive Protein 18.9 H Preliminary micro results at discharge 02/25/22 06:15 Blood Culture - Preliminary Blood NO GROWTH AFTER 24 HOURS 02/23/22 06:06 Blood Culture - Preliminary Blood NO GROWTH AFTER 72 HOURS Discharge Plan Discharge Disposition: Xfer Other Date of Admission: 02/03/22 10:38 Attending Physician on Admission: Shani Carter Primary Care Provider: Samantha Stauffer Discharge Medications: Continued amantadine HCl 137 mg capsule,extended release 24hr 274 mg PO HS carbidopa-levodopa 61.25-245 mg capsule, extended release 1 cap PO QID citalopram 10 mg tablet 10 mg PO DAILY ondansetron 4 mg tablet,disintegrating 4 mg PO Q8H PRN omeprazole 40 mg capsule,delayed release(DR/EC) 40 mg PO BID Qty: 180 4RF simethicone [Mylanta Gas] 125 mg tablet,chewable 125 - 250 mg PO BID PRN carbidopa-levodopa 25-100 mg tablet 1 tab PO BID PRN pravastatin 80 mg tablet 80 mg PO HS polyethylene glycol 3350 [Miralax] 17 gram/dose powder 17 g PO DAILY Qty: 119 0RF sodium chloride 1,000 mg Tablet,Soluble 1 g PO TID Qty: 30 0RF sodium chloride 1 gram tablet 1,000 mg PO TID PRN (Reason: electrolyte replenishment) Qty: 30 0RF Discharge Orders: Discharge Order (Routine); Ordered 02/26/22 Ordered By: Denisha Marley Follow Up Appointments: Samantha Stauffer MD [Primary Care Provider] - Forms: [facility] Info Instructions Hospital Course: HOSPITALIST TRANSFER SUMMARY (THIS SERVES HIS DISCHARGE SUMMARY OF A 23 DAY HOSPITALIZATION) ATTENDING PHYSICIAN: Denisha Marley MD REASON FOR TRANSFER Need for Interventional Radiology or gastroenterology expertise for NG tube placement Motility specialist/gastroenterology Multi disciplinary tertiary care BRIEF HOSPITAL COURSE: Andrew has been on our service for 23 days. He was admitted after his routine ileostomy takedown, which was uncomplicated, however he could not progress on his p.o. intake and became weak and dehydrated. Once admitted he was noted to have a small-bowel obstruction versus severe ileus. Conservative care was pursued. Ultimately he went to surgery for an exploratory laparotomy on February 08. Lysis adhesion and anastomosis revision was completed. NG tube was placed. Initially we thought he had improved, NG tube was withdrawn. He then became distended and had poor p.o. intake. He had a PICC line placed early on for bowel rest and nutrition needs. This line became infected and he grew Staph epi in his blood cultures. His line holiday was 3 days. A new PICC line was placed and TPN was continued. However his distension both in the small bowel and colon continued. Several attempts and an NG tube were unsuccessful. We felt his weakness and overall health was declining. We had pursued teritary care placement for several days. Fin[facility] on February 26, [facility]. General surgery noted the following: On 06/20/2021 he underwent exploratory laparotomy, right hemicolectomy, fecal disimpaction and created of end ileostomy with mucous fistula for ascending colon perforation secondary to fecal impaction. He was deemed a candidate for ileostomy takedown and this was done on 01/10/2022. Postoperatively, was discharged home after 7 days, having had return of bowel function. After this, he had repeated visits to clinic and the emergency department with nausea and dysphagia. On 02/02/2022, he was readmitted to the hospital with essentially failure to thrive because he was progressively weak and had not been able to eat because of significant nausea. He had been having bowel movements throughout this period, however. CT scan showed diffusely dilated bowel, primarily small bowel but also portions of colon. There was also inflammatory change around the anastomotic site with possible narrowing from anastomotic stricture. He was made NPO and continued to have bowel movements. C difficile was negative. PICC line was placed and TPN was started. Five days later, the patient having reached approximately the 4 week month postop, an upper GI with small-bowel follow- through was performed. This showed distended loops of small bowel with nondistention of the colon. Contrast was within the jejunum at 23 hours post contrast, with concern for bowel obstruction. Because his abdominal distension did not improve and he now had minimal to no antegrade bowel function, he was taken back to the operating room on 02/08/2022. There there was an adhesion between the small bowel and the anastomosis which was taken down. The anastomosis was also revised at this time. His ileocolic anastomosis was resected and sent to pathology.? Pathology showed an abscess at the anastomosis although there was no presence of an abscess intraoperatively.? Patient was treated with NPO and NG tube for multiple days.? His NG tube was clamped and he tolerated well.? He was advanced to clear liquid diet with clamped NG tube in place and tolerated that well.? He continued to pass gas and have liquid bowel movements.? However, several days after his NG was removed and his diet was advanced, patient again developed abdominal distension.? He was still passing gas but had a lot of nausea and vomiting.? Patient was then placed again NPO with continue TPN. Patient developed a surgical site infection at his midline laparotomy incision.? 3 different areas of midline incision were opened and treated with packings.? Patient was treated with Zosyn.? His surgical site infection improved.? However patient developed a fever and grew Staph epidermidis in peripheral culture.? Vancomycin was added for antibiotic coverage.? Since 2 of the peripheral cultures grew the same organism, his PICC line was removed and he was given a line holiday.? He continued to be on IV antibiotics.? Patient was then treated with PPN.? His abdomen continued to be distended and he continued to have gas and liquid stools. On 02/18/[address] was obtained that showed a small fluid collection in the right upper quadrant with inflammation in the right upper quadrant.? Patient's small intestine was largely dilated.? His ileocolic anastomosis appeared to be patent.? The fluid collection was near the gallbladder and subhepatic and was not thought to be amenable to percutaneous drainage.? We continued treatment with antibiotics and bowel rest.? A repeat CT on 02/23/2022 showed resolution of small fluid collection however the inflammation in the right upper quadrant was still present.? Patient continued to have dilated stomach and small intestine. Due to his abdominal distension, an attempt was made to place his NG tube at bedside.? Patient has a history of Heller myotomy 2 years ago.? After multiple unsuccessful attempts of repositioning and advanding the NG tube, this was removed.? On 02/23/[address] NG tube under fluoroscopic guidance.? However the tube was coiling in the esophagus and it was difficult to advance into the stomach passed GE junction.? With contrast injected through the tube we were able to see that the stomach opacified however the tube did not advance easily into the stomach and the tip of the NG tube was left at the GE junction.? Suction was applied to NG tube and about 900 mL total of fluid were aspirated through this NG tube.? However the tube was coiled in the esophagus and it was pulled back.? We attempted to replace NG tube with EGD however this was also not successful. Patient continued to be NPO. His PICC line was replaced on 02/24. SERVICES NOT AVAILABLE HERE THAT HIS PATIENT NEEDS: Interventional radiology/gastroenterology for placement of an NG tube that is technically difficult secondary to chronic achalasia Gastroenterology motility expert Tertiary Care, multi disciplinary team ACCEPTING PHYSICIAN/SERVICE/LOCATION: Hospitalist service and general surgeon Dr. Sanchez at [place] MEDICATIONS AT TIME OF TRANSFER: IV vancomycin, ertapenem (bacteremia from PICC line) TPN and fat emulsion Amantadine and Sinemet p.o. for Parkinson's Celexa, pravastatin, pantoprazole Ativan and Dilaudid for anxiety and pain DRIPS/LINES: TPN via PICC line VITAL SIGN, MEDICATION, LAB/MICRO, IMAGING SUMMARY (full details available in account tabs or by records request) Vital signs were stable and he was on room air at transfer. REVIEW OF SYSTEMS Unchanged. PHYSICAL EXAM: CONSTITUTIONAL: Cachectic, pale, weak. VITAL SIGNS: see record. Exam unchanged from earlier with notable exceptions: Distension continues abdominal it. DISPOSITION: ground transfer, ACLS, from [place] to [place] Time spent on discharge >30 minutes. This includes speaking with accepting physician; family/patient and coordinating meds/drips for transfer
== END 2022-02-26 15:00 | disposition short-term general hospital (02) | DRG 221 ==
LOC: ED 11:45 → MEDSURG 12:19
PROVIDERS: Family Medicine; Internal Medicine; Surgery; Admitting Provider Family Medicine; Emergency Provider Family Medicine; PCP Family Medicine; Visit Provider Family Medicine
PROC: 0DT80ZZ Resection of Small Intestine, Open Approach (ICD-10-PCS; CPT 49000; principal; 2022-02-08 11:45)
DX: K91.31 Postprocedural partial intestinal obstruction (principal); K22.0 Achalasia of cardia; E87.1 Hypo-osmolality and hyponatremia; N17.9 Acute kidney failure, unspecified; T81.41XA Infection following a procedure, superficial incisional surgical site, initial encounter; R78.81 Bacteremia; B95.7 Other staphylococcus as the cause of diseases classified elsewhere; T80.211A Bloodstream infection due to central venous catheter, initial encounter; K20.90 Esophagitis, unspecified without bleeding; E43 Unspecified severe protein-calorie malnutrition; R64 Cachexia; R62.7 Adult failure to thrive; R00.0 Tachycardia, unspecified; R53.83 Other fatigue; Z68.1 Body mass index [BMI] 19.9 or less, adult; D64.9 Anemia, unspecified; N14.19 Nephropathy induced by other drugs, medicaments and biological substances; T36.0X5A Adverse effect of penicillins, initial encounter; G20 Parkinson's disease; K59.09 Other constipation; K21.9 Gastro-esophageal reflux disease without esophagitis; M50.30 Other cervical disc degeneration, unspecified cervical region; R13.19 Other dysphagia; J98.4 Other disorders of lung; R26.89 Other abnormalities of gait and mobility; Z96.82 Presence of neurostimulator; F32.A Depression, unspecified; E78.5 Hyperlipidemia, unspecified; F41.9 Anxiety disorder, unspecified; R73.03 Prediabetes; G25.81 Restless legs syndrome; E55.9 Vitamin D deficiency, unspecified
CPT/HCPCS: 00731; 00790; 00840; 36415; 36573; 43235; 44500; 64488; 71045; 74018; 74019; 74177; 74250; 74340; 76942; 80048; 80053; 80061; 80069; 80076; 81001; 82150; 82330; 82728; 82803; 82947; 82962; 82977; 83540; 83550; 83605; 83690; 83735; 83880; 84100; 84134; 84295; 84443; 84478; 84484; 85018; 85025; 85027; 85045; 85610; 86140; 87040; 87045; 87046; 87081; 87158; 87186; 87205; 87427; 87493; 87631; 87635; 88304; 93005; 94761; 97110; 97116; 97162; 97165; 97530; 97535; 99140; 99285; A4221; A9270; B4185; B4189; C1751; C9113; C9290; G0378; J0330; J0690; J1100; J1170; J1335; J1650; J1885; J2060; J2250; J2405; J2543; J2704; J2710; J3010; J3370; J3490; J7030; J7050; J7120; P9047; Q9963; Q9966; Q9967

== ENCOUNTER 2022-02-26 14:50 | Outpatient (CLI) | payer BC, SELFPAY ==
--- OUTSIDE RECORDS SUMMARY | 2022-04-21 03:48 | XMS_ITS | Clinical Summary ---
:1955 Author Organization [employer] [facility]ates [place] [address] Care Team Providers Name Role Phone Maria Esther Phan MD Unavailable Shannon Avery MD Unavailable Min, Charanjit Holt MD Unavailable Samantha Stauffer MD Primary Care Provider [phone] Allergies No known active allergies Medications [...] Encounters Date Type Specialty Care Team Description 02/08/2022 Lab Requisition Kelli Mays MD from Last 3 Months Immunizations Name Administration Dates Next Due Influenza A (H1N1), Inactivated 05/05/2009 Influenza Virus, Unspecified 05/05/2009 Tdap 06/02/2017, 05/22/2007, 01/10/2006 Family History Medical History Relation Name Comments Other Brother Cr Congenital blind ness, oldest Diabetes Father Heart Disease Father CAD, [place] age 68-6 9, CABG Hyperlipidemia Father Heart Disease Mother CAD, [place] age 70 Hyperlipidemia Mother Stroke Mother Other [...] history exists COVID-19 vaccine series (3 - 10/24/2020 08/29/2020, 021 Booster for Pfizer series) Pneumococcal series for age 65+ (1 2021 - PCV) BMI (ht and wt on same day) for 01/15/2022 01/15/2021 age 18+ Influenza for age 65+ 01/20/2022 05/05/2009, 05/05/2009 Tetanus booster 06/02/2027 06/02/2017, 05/22/2007, 01/10/2006 Tdap Completed 06/02/2017, 05/22/2007, 01/10/2006 Procedures Procedure Name Priority Date/Time Associated Diagnosis Comme nts LAB TRACKING EVENT Routine 02/08/2022 1:45 PM CDT PATH TISSUE EXAM Routine 02/08/2022 1:45 PM Resul ts for this CDT procedure are i n the results section. from Last 3 Months Results LAB TRACKING EVENT (02/08/2022 1:45 PM CDT) Specimen Anatomical Collection Method Collection Time Receive d Time (Source) Location / / Volume Laterality Other (Other) Client Collect / 02/08/2022 1:45 PM 01/21 8:30 Unknown CDT PM CDT Kelli Mays MD LAB BILL ONLY Performing Organization Address City/State/ZIP Code Phon e Number [employer] [facility] [address] [place] [address] LABORATORY-CENTRAL 2000 LABORATORY PATH TISSUE EXAM (02/08/2022 1:45 PM CDT) Component Value Ref Test Analysis Performed At [facility] gist Range Method Time Signature Case Report Pathology Report ?Case: [id number] ? 02/10/2022 [facility] Authorizing Provider: ??Kelli Johnson MD ?Collected: ? 02/08/2022 1345 ? 2:49 PM HEALTH Ordering Location: ? [facility] CENTRAL LAB ?Received: ?02/08/20222054 ? CDT [facility]-C Pathologist: ? Alvarado Landry ? ENTRAL ? IV, MD ? LABORATORY Specimen: ?Colon, Partia l, ileocolic anastamosis ? Final A) ILEOCOLONIC ANASTOMOSIS, RESECTION: 0 02/10/2022 [facility] Electronically Diagnosis 1. Ileocolonic anastomosis associated with ulceration and abscess 2:49 PM HEALTH signed by 2. Negative for neoplasia CDT LABO JULIETTE Farley IV, MD on 02/10/2022 at 2:49 PM Clinical Mr. Pang is a 02/10/2022 [facility] Information 66 y.o. presents 2:49 PM HEALTH with abdominal CDT LABORATORY-C pain. The patient ENTRAL had an ileostomy LABORATORY takedown 4 weeks ago. The procedure note is not available to us at the time of this pathology review. Gross A) Received in formalin, lab eled with the patient's name and ileocolic anastomosis, are 2 portions of intestinal tissue measuring 15.1 and 9.5 cm in length and both averaging 4.7 cm diameter. ??The 2 [facility] Description ends of the specimen are alberto ed with staple lines. Within the midportion of the specimen is a 15 cm staple line, consistent with a previous anastomosis site. ?? The serosa becker-pink and red-brown, ragged 2:49 PM HEALTH and dull. ??Within the midpo rtion of the specimen, corresponding to the anastomosis site, is a 8.5 x 3.1 cm area of brown-purple, hemorrhagic, ragged, area of dense fibrous adhesions a becker-white underly CD T LABORATORY-C ing fibrosis. ??Opening the specimen reveals a becker-brown, smooth, glistening mucosa with normal folds. ??A discrete mucosal lesion is not grossly appreciated. ??The colon wall averages 0.2 cm in thickne ENTRAL ss. ??There is a minimal justen unt of adherent yellow lobular adipose tissue. ??No lymph nodes are identified. LABORATORY Designer sections are submitted as follows: 1-2. ??Staple line margins, en face 3-5. ??Tissue adjacent to an astomotic staple line with hemorrhagic, ragged serosa 6. ??Tissue adjacent to anastomotic staple line with underly ing fibrosis Time and date in formalin: 1420 on 02/08/2022 DAVID 02/09/2022 Microscopic The final 02/10/2022 [facility] Description diagnosis is 2:49 PM HEALTH based on CDT LABORATORY-C microscopic ENTRAL examination of LABORATORY appropriate sections of all specimens. Additional 02/10/2022 [facility] Information Interpreted at [facility], Central Laboratory - [address], [place] [address] 2:49 PM HEALTH CDT LABORATORY-C ENTRAL LABORATORY Specimen Anatomical Collection Method Collection Time Receive d Time (Source) Location / / Volume Laterality Other (Colon, 02/08/2022 1:45 PM 02/09/20 8:55 Partial) CDT PM CDT Kelli Mays MD PATHOLOGY/CYTOLOGY Performing Organization Address City/State/ZIP Code Phon e Number [facility] [address] [place] [address] LABORATORY-CENTRAL 2000 LABORATORY from Last 3 Months Insurance Payer Benefit Plan / Subscriber ID Effective Dates Phone Addre ss Type Group BLUE CROSS BLUE CROSS OF [id number] 2014-Present [address] [address] [place] [address] [address] (Home) [facility] [place] [phone] Advance Directives Latest Code Status on File Code Status Date Activated Date Inactivated Comments Full Code 03/18/2021 11:01 AM 03/20/2021 5:01 PM Code Status Discussion: Not Discussed Full Code 12/31/2020 12:12 PM 01/13/2021 12:25 PM Code Status Discussion: Per Existing Order Full Code 12/25/2020 7:47 PM 12/31/2020 12:05 PM Code Status Discussion: Discussed Care Teams Jacket Preparer Relationship Specialty Start Date End Date Samantha Stauffer MD PCP - General Family Practice 12/27/201999 [place] [address] Maria Esther Phan MD Neurology Neurology 12/27/[address] [place] [address] Shannon Avery MD Hospitalist Pulmonary Medicine 12/27/20 [address] [place] [phone] Charanjit Gray MD Hospitalist Gastroenterology 12/27/20 [address] [facility] [address] [place], [place] [address]
--- OUTSIDE RECORDS SUMMARY | 2022-04-21 03:48 | XMS_ITS | Encounter Summary ---
:1955 Author Organization [facility] Address [address] [place] [address] Care Team Providers Name Role Phone Lurdes Thomas MD Primary Care Provider [phone] Encounter Details Date Type Department Care Team Description 08/29/2020 Immunization [facility] Logan Nelson, Vaccination [id number] [place] [address] [phone] Social History Tobacco Use Types Packs/Day Years Used Date Smoking Tobacco: Never Smokeless Tobacco: Never Alcohol Use Standard Drinks/Week Comments Yes 0 (1 standard drink = 0.6 oz pure alcoho l) not often Sex Assigned at Date Recorded Male 08/05/2020 2:57 PM CDT documented as of this encounter Plan of Treatment Not on filedocumented as of this encounter Visit Diagnoses Not on filedocumented in this encounter Care Teams Home Health Rn Relationship Specialty Start Date End Date Lurdes Thomas MD PCP - General Internal Medicine 06/11/14 12/16/20 documented as of this encounter
--- OUTSIDE RECORDS SUMMARY | 2022-04-21 03:48 | XMS_ITS | Encounter Summary ---
:1955 Author Organization [facility] Address [address] [place] [address] Care Team Providers Name Role Phone Lurdes Thomas MD Primary Care Provider [phone] Reason for Referral Medication Prior Authorization (Routine) - Closed Specialty Diagnoses / Procedures Referred By Contact Refer red To Contact Diagnoses Hyperlipidemia with target LDL less than 130 Lurdes Thomas MD [facility] [address] [place] [address] Referral ID Status Reason Start Date Expiration Date Visits Requ ested Visits Authorized [id number] Closed Reason for Visit Reason Onset Date Comments Refill Request 10/20/2015 PRAVASTATIN 80MG Encounter Details Date Type Department Care Team Description 10/20/2015 Refill [facility] Eag Lurdes Rojas Refill Request [address] [facility] MD [place] (PRAVASTATIN 80MG) [place] [address] [facility] [phone] [place] [address] [place] [phone] (Wo rk) Social History Tobacco [...] for 6 months. Please advise pt. Maggie salon sales consultant Nurse Telephone Encounter - Julisa Hayden - 10/20/2015 11:53 AM CDT PRAVASTATIN 80MG Last Written Prescription Date: 04/13/2015 Last Fill Quantity: 90, # refills: 1 Last Office Visit with [facility], [facility] or [facility] prescribing provider: 02/12/2015 CHOL 219 11/25/2014 HDL 65 11/25/2014 LDL 123 11/25/2014 TRIG 153 11/25/2014 CHOLHDLRATIO 3.4 11/25/2014 documented in this encounter Plan of Treatment Not on filedocumented as of this encounter Visit Diagnoses Diagnosis Hyperlipidemia with target LDL less than 130 - Primary Other and unspecified hyperlipidemia documented in this encounter Care Teams Dye House Wheel Operator Relationship Specialty Start Date End Date Lurdes Thomas MD PCP - General Internal Medicine 06/11/14 12/16/20 documented as of this encounter
--- OUTSIDE RECORDS SUMMARY | 2022-04-21 03:48 | XMS_ITS | Clinical Summary ---
:1955 Author Organization [facility] Address [address] [place] [address]. [place] [address] Care Team Providers Name Role Phone Samantha Stauffer MD Primary Care Provider [phone] Allergies No known active allergies Medications [...] confirm. Immunizations Name Administration Dates Next Due COVID-19 Vaccine 12+ (Pfizer) 08/29/2020, 08/08/2020 TDAP Vaccine (Adacel) 01/10/2006 Family History Medical History Relation Comments Lipids Father 1 Cardiovascular Father 2 MD, s/p CABG in mid- late 60's Diabetes Father 2 Neurologic Disorder Father 2 Parkinson's Cardiovascular Mother CVA x4 and MD, s/p C ABG in mid-late 60's Relation [...] 1955 COLONOSCOPY 1966 COLORECTAL CANCER SCREENING 1966 HEPATITIS C SCREENING 1974 ZOSTER IMMUNIZATION (1 of 2006 2) LIPID 11/26/2019 11/25/2014, 09/20/2012, 07/27/2011, Additional history exists COVID-19 Vaccine (3 - 10/24/2020 08/29/2020, 08/08/2020 Booster for Pfizer series) AORTIC ANEURYSM SCREENING 2021 (SYSTEM ASSIGNED) FALL RISK ASSESSMENT 2021 MEDICARE ANNUAL WELLNESS 2021 10/15/2010 VISIT Pneumococcal Vaccine: 65+ 2021 Years (1 - PCV) PHQ-2 (once per calendar 05/22/2021 year) INFLUENZA VACCINE (#1) 2022 05/05/2009, 05/05/2009, 05/05/2009 DTAP/TDAP/TD IMMUNIZATION 06/02/2027 06/02/2017, 06/02/2017 , (4 - Td or Tdap) 05/22/2007, Additional history exists IPV IMMUNIZATION Aged Out No longer eligi ble based on patient 's age to complete this topic MENINGITIS IMMUNIZATION Aged Out No longe r eligible based on patient 's age to complete this topic Medical Devices Implanted Type Area Director Physical Therapy Device Shelf Model / Identifier Expiration Date Ser ial / Lot Fiducials Skull IMAGE GUIDED 06/12/2017 [id number] / Implanted: Qty: 5 on 09/09/2014 by Gonzalez Silva MD at [facility] / [id number] Description: 5 fiducials used - opened 1 box for charging (contains 6 in box). Done in the clinic - reported to us by Alexa Katz Neurostimulator [employer] [id number] Right: Chest [employer]O 12/17/2015 [id number] / Implanted: Qty: 1 on 09/16/2014 by Gonzalez Silva MD at [facility] [id number] / Insurance Payer Benefit Plan / Subscriber ID Effective Dates Phone Addre ss Type Group BCBS BCBS OUT OF [id number] 2014-Present [phone] [address] [address] [place] [address] [address] (Home) [place] [phone] [address] [phone] (Work) Advance Directives For more information, please contact: [phone] Latest Code Status on File Code Status Date Activated Date Inactivated Comments Full Code 09/10/2014 9:18 AM Care Teams Chromium Plater Relationship Specialty Start Date End Date Samantha Stauffer MD PCP - General Family Medicine 12/17/[address] [address]
--- OUTSIDE RECORDS SUMMARY | 2022-04-21 03:48 | XMS_ITS | Encounter Summary ---
:1955 Author Organization [facility] Address [address] [place] [address]. [place] [address] Care Team Providers Name Role Phone Lurdes Thomas MD Primary Care Provider [phone] Reason for Visit Reason Comments Recheck Medication Encounter Details Date Type Department Care Team Description 02/12/2015 Office Visit [facility] Lurdes Thomas Back pain (Primary Dx); Uzair Laughlin MD Hyperlipidemia LDL goal < 130; [address] Prediabetes; [place] [address] [place] Vitamin D deficiency; [phone] [address] [facility] Erectile d ysfunction; RD Screening for colon cancer; [place], [place] Screening for p rostate cancer [id number] Social History Tobacco Use Types Packs/Day Years [...] documented in this encounter Progress Notes Lurdes Thmoas MD - 02/12/2015 9:53 AM CDT SUBJECTIVE: [...] list, Allergies, and Medical/Social/Surgical histories reviewed in EPIC andupdated as appropriate. OBJECTIVE: BP 100/62 mmHg [...] PT - pt will call for order (122.4) Hyperlipidemia LDL goal < 130 Comment: concerned about statin causing back pain Plan: - will try stopping for 2 weeks and see if back pain improves - if does not improve, will restart - if does improve, would recommend switch to crestor (457.29) Prediabetes Comment: normal on recheck today Plan: [...] annual visit and as needed Lurdes Thomas [facility] documented in this encounter Nursing Notes Tamy [...] (92.715 kg). BP completed using cuff size: regular Tamy Leahy LPN documented in this encounter [...] Signature PSA 0.50 0 - 4 ug/L [facility] Specimen Anatomical Collection Method Collection Time Receive d Time (Source) Location / / Volume Laterality Blood specimen 02/12/2015 10:25 5 (specimen) AM CDT 10:30 AM CDT Lurdes Thomas MD LAB - BLOOD ORDERABLES Performing Organization Address City/State/ZIP Code Phon e Number [facility] [address] [phone] [facility] [address] [phone], [facility] [phone] Vitamin D Deficiency (02/12/2015 10:25 AM CDT) athologist Signature Vitamin D 29 20 - 75 [facility] Deficiency ug/L [place] [facility] Comment: Season, race, dietary intake, and treatm ent affect the concentration of 86-dlykhcf-Rfbxima D. Values may decrea se during winter [...] Phon e Number [facility] [address] [place] [address] [facility] Glucose (02/12/2015 10:25 AM CDT) athologist Signature Glucose 94 70 - 99 [facility] mg/dL [facility] Specimen Anatomical Collection Method Collection Time Receive d Time (Source) Location / / Volume Laterality Blood specimen 02/12/2015 10:25 5 (specimen) AM CDT 10:30 AM CDT Lurdes Thomas MD LAB - BLOOD ORDERABLES Performing Organization Address City/State/ZIP Code Phon e Number [facility] [address] [place] [address] documented in this encounter Visit Diagnoses Diagnosis [...] prostate documented in this encounter Care Teams Medical Laboratory Assistant Relationship Specialty Start Date End Date Lurdes Thomas MD PCP - General Internal Medicine 06/11/14 12/16/20 documented as of this encounter
--- OUTSIDE RECORDS SUMMARY | 2022-04-21 03:48 | XMS_ITS | Encounter Summary ---
:1955 Author Organization [facility] Address [address] [place] [address]. [place] [address] Care Team Providers Name Role Phone Lurdes Thomas MD Primary Care Provider [phone] Samantha Stauffer MD Primary Care Provider [phone] Encounter Details Date Type Department Care [...] on filedocumented in this encounter Care Teams Camp Boss Relationship Specialty Start Date End Date Lurdes Thomas MD PCP - General Internal Medicine 06/11/14 12/16/20 Samantha Stauffer MD PCP - General Family Medicine 12/17/[address] [address] documented as of this encounter
--- OUTSIDE RECORDS SUMMARY | 2022-04-21 03:48 | XMS_ITS | Encounter Summary ---
:1955 Author Organization [facility] Address [address] [place] [address]. [place] [address] Care Team Providers Name Role Phone Samantha Stauffer MD Primary Care Provider [phone] Encounter Details Date Type Department Care [...] filedocumented in this encounter Care Teams Air Control/Anti Air Warfare Officer Relationship Specialty Start Date End Date Samantha Stauffer MD PCP - General Family Medicine 12/17/[address] [address] documented as of this encounter
--- OUTSIDE RECORDS SUMMARY | 2022-04-21 03:48 | XMS_ITS | Encounter Summary ---
:1955 Author Organization [facility] Address [address] [place] [address]. [place] [address] Care Team Providers Name Role Phone Lurdes Thomas MD Primary Care Provider [phone] Reason for Visit (Routine) - Closed Specialty Diagnoses / Procedures Referred By Contact Refer red To Contact Radiology / Radiology. Procedures Uu Mri MR LUMBAR SPINE [address] [place] [address] Phone: Referral ID Status Reason Start Date Expiration Date Visits Requ ested Visits Authorized [id number] Closed 08/18/2015 08/17/2016 1 1 Encounter Details Date Type Department Care Team Description 08/21/2015 Hospital Encounter [facility] [place], [place] re low back pain [facility] Imaging Maria Esther Amaro MD [address] [place], [place] [address] [employer] [address] [place] [address] Social History Tobacco Use Types [...] Lumbago documented in this encounter Care Teams Stone Cutter Relationship Specialty Start Date End Date Lurdes Thomas MD PCP - General Internal Medicine 06/11/14 12/16/20 documented as of this encounter
--- OUTSIDE RECORDS SUMMARY | 2022-04-21 03:48 | XMS_ITS | Encounter Summary ---
:1955 Author Organization [facility] Address [address] [place] [address] Care Team Providers Name Role Phone Lurdes Thomas MD Primary Care Provider [phone] Encounter Details Date Type Department Care Team Description 08/08/2020 [facility] [address] [place] [address] Social History Tobacco Use Types Packs/Day Years [...] on filedocumented in this encounter Care Teams Weaving Supervisor Relationship Specialty Start Date End Date Lurdes Thomas MD PCP - General Internal Medicine 06/11/14 12/16/20 documented as of this encounter
--- OUTSIDE RECORDS SUMMARY | 2022-04-21 03:48 | XMS_ITS | Encounter Summary ---
:1955 Author Organization [facility] Address [address] [place] [address]. [place] [address] Care Team Providers Name Role Phone Lurdes Thomas MD Primary Care Provider [phone] Samantha Stauffer MD Primary Care Provider [phone] Encounter Details Date Type Department Care [...] on filedocumented in this encounter Care Teams Laundry Superintendent Relationship Specialty Start Date End Date Lurdes Thomas MD PCP - General Internal Medicine 06/11/14 12/16/20 Samantha Stauffer MD PCP - General Family Medicine 12/17/[address] [address] documented as of this encounter
--- OUTSIDE RECORDS SUMMARY | 2022-04-21 03:48 | XMS_ITS | Encounter Summary ---
:1955 Author Organization [facility] Address [address] [place] [address]. [place] [address] Care Team Providers Name Role Phone Lurdes Thomas MD Primary Care Provider [phone] Reason for Visit Reason Onset Date Comments Outreach 05/30/2015 [facility] call not require d FIT ordered,[facility] Encounter Details Date Type Department Care Team Description 05/30/2015 Telephone [facility] Lurdes Thomas h (PHS call not [facility]OC[facility] - TYLER Laughlin MD required FIT MANAGEMENT DEPT [facility] ordered,cnt) [address] [facility] [address] [place] [address] [address] [phone] [place], [place] [address] (Wo rk) Social History [...] filedocumented in this encounter Care Teams Master Barber Relationship Specialty Start Date End Date Lurdes Thomas MD PCP - General Internal Medicine 06/11/14 12/16/20 documented as of this encounter
--- OUTSIDE RECORDS SUMMARY | 2022-04-21 03:48 | XMS_ITS | Encounter Summary ---
:1955 Author Organization [facility] Address [address] [facility] [place] [address] Care Team Providers Name Role Phone Lurdes Thomas MD Primary Care Provider [phone] Reason for Visit (Routine) - Closed Specialty Diagnoses / Procedures Referred By Contact Refer red To Contact Radiology / Radiology. Diagnoses R#NA, Written Order, SB Doris, Not a read and call. Sh Ct Scan Procedures CT LUMBAR SPINE [address] [address] Phone: Referral ID Status Reason Start Date Expiration Date Visits Requ ested Visits Authorized [id number] Closed 08/31/2015 08/30/2016 1 1 Encounter Details Date Type Department Care Team Description 08/31/2015 Hospital Encounter [facility] [place], [place] re low back pain [facility] Maria Esther Amaro MD [address] [place] [address] [place] [id number] Social History Tobacco Use Types Packs/Day Years [...] Region Laterality Modality Spine, SUBRAD CT MSK, P CT SPINE Compu werner Tomography Specimen (Source) [...] Lumbago documented in this encounter Care Teams University Registrar Relationship Specialty Start Date End Date Lurdes Thomas MD PCP - General Internal Medicine 06/11/14 12/16/20 documented as of this encounter
--- OUTSIDE RECORDS SUMMARY | 2022-04-21 03:48 | XMS_ITS | Encounter Summary ---
:1955 Author Organization [facility] Address [address] [place] [address]. [place] [address] Care Team Providers Name Role Phone Lurdes Thomas MD Primary Care Provider [phone] Reason for Visit Reason Onset Date Comments Prior Auth - Medication 02/12/2015 viagra Encounter Details Date Type Department Care Team Description 02/12/2015 Telephone [facility] Lurdes Oh Prior Auth - Medication [address] [facility] MD [place] (viagra ) [place] [id number] [facility] [phone] [address] (Wo rk) Social History [...] 3:22 PM CDT Prior auth request for [employer]. Filled out and faxed. Tamy Leahy LPN documented in this encounter Plan of Treatment Not on filedocumented as of this encounter Visit Diagnoses Not on filedocumented in this encounter Care Teams Pocket Creaser Relationship Specialty Start Date End Date Lurdes Thomas MD PCP - General Internal Medicine 06/11/14 12/16/20 documented as of this encounter
--- OUTSIDE RECORDS SUMMARY | 2022-04-21 03:48 | XMS_ITS | Encounter Summary ---
:1955 Author Organization [facility] Address [address] [place] [address] Care Team Providers Name Role Phone Samantha Stauffer MD Primary Care Provider Reason for Referral Diagnostic Imaging XR (Routine) - Closed Specialty Diagnoses / Procedures Referred By Contact Refer red To Contact Diagnoses Esophageal dysphagia Charanjit Gray MD Procedures XR [facility] [address] [address] [place], [place] [address] Referral ID Status Reason Start Date Expiration Date Visits Requ ested Visits Authorized [id number] Closed 12/09/2020 12/09/2021 1 1 Reason for Visit Diagnostic Imaging XR (Routine) - Closed Specialty Diagnoses / Procedures Referred By Contact Refer red To Contact Diagnoses Esophageal dysphagia Charanjit Gray MD Procedures XR [facility] [address] [address] [place], [place] [address] Referral ID Status Reason Start Date Expiration Date Visits Requ ested Visits Authorized [id number] Closed 12/09/2020 12/09/2021 1 1 Encounter Details Date Type Department Care Team Description 12/17/2020 [facility] Charanjit Gray MD Esophageal Encounter [facility] [place] dysphagia [address] [facility] [address] [place] [address] [place], [place] [phone] (Wo rk) [address] [phone] Social History Tobacco Use Types Packs/Day Years [...] dose documented in this encounter Care Teams Senior Art Director Relationship Specialty Start Date End Date Samantha Stauffer MD PCP - General Family Medicine 12/17/[address] [address] documented as of this encounter
--- OUTSIDE RECORDS SUMMARY | 2022-04-21 03:48 | XMS_ITS | Encounter Summary ---
:1955 Author Organization [facility] Address [address] [place] [address]. [place] [address] Care Team Providers Name Role Phone Lurdes Thomas MD Primary Care Provider [phone] Reason for Visit Reason Onset Date Comments Refill Request 04/15/2016 PRAVASTATIN 80MG Encounter Details Date Type Department Care Team Description 04/15/2016 Refill [facility] Eag an Lurdes Thomas Refill Request 1440 [facility] MD [place] (PRAVASTATIN 80MG) [place] [address] [facility] [phone] [address] (Wo rk) Social History Tobacco Use Types Packs/Day Years Used Date Smoking Tobacco: Never Smokeless Tobacco: Never Alcohol Use Standard Drinks/Week Comments Yes 0 (1 standard drink = 0.6 oz pure alcoho l) not often Sex Assigned at Date Recorded Male 08/05/2020 2:57 PM CDT documented as of this encounter Miscellaneous Notes Telephone Encounter - Lurdes Thomas MD - 04/15/2016 4:37 PM DIGITAL MARKETING ASSOCIATE Mychart sent telling patient cannot continue to fill medications without visit. Lurdes Thomas MD Internal Medicine/Pediatrics TAL MARKETING ASSOCIATE Telephone Encounter - Chanell Villa RN - 04/15/2016 4:30 PM DIGITAL MARKETING ASSOCIATE Made multiple attempts(LM & MC message) from October advising pt that he is due for an OV. Pt haven't responded. Routing refill request to provider for review/approval because: Hawa given x1 and patient did not follow up, please advise Maggie wafer fabrication technician Nurse TAL MARKETING ASSOCIATE Telephone Encounter - Genie Mello - 04/15/2016 4:28 PM CST PRAVASTATIN 80MG Last Written Prescription Date: 10/23/2015 Last Fill Quantity: 90, # refills: 1 Last Office Visit with [facility], [facility] or [facility] prescribing provider: 02/12/2015 CHOL 219 11/25/2014 HDL 65 11/25/2014 LDL 123 11/25/2014 TRIG 153 11/25/2014 CHOLHDLRATIO 3.4 11/25/2014 TAL MARKETING ASSOCIATE documented in this encounter Plan of Treatment Not on filedocumented as of this encounter Visit Diagnoses Diagnosis Hyperlipidemia with target LDL less than 130 - Primary Other and unspecified hyperlipidemia documented in this encounter Care Teams School Traffic Supervisor Relationship Specialty Start Date End Date Lurdes Thomas MD PCP - General Internal Medicine 06/11/14 12/16/20 documented as of this encounter
--- OUTSIDE RECORDS SUMMARY | 2022-04-21 03:48 | XMS_ITS | Encounter Summary ---
:1955 Author Organization [facility] Address [address] [place] [address]. [place] [address] Care Team Providers Name Role Phone Lurdes Thomas MD Primary Care Provider Reason for Visit Reason Onset Date Comments Panel Management 06/25/2015 Encounter Details Date Type Department Care Team Description 06/25/2015 Telephone [facility] Eag Lurdes Rojas Panel Management 1440 [facility] [place] [address] [facility] [phone] [address] [place], [place] [address] (Wo rk) Social History Tobacco Use [...] a reminder letter regarding the FIT test. ICE PORTER Telephone Encounter - Tamy Leahy LPN - 06/25/2015 2:13 PM CST Panel Management Review Patient has the following on his problem list: none Composite cancer screening Chart review shows that this patient is due/due soon for the following Fecal Colorectal (FIT) Summary: Patient is due/failing the following: FIT Action needed: FIT test completion Type of outreach: Sent [facility] message. Reminding patient to complete FIT test. Questions for provider review: None Tamy Leahy LPN Chart routed to Care Team . ICE PORTER documented in this encounter Plan of Treatment Not on filedocumented as of this encounter Visit Diagnoses Not on filedocumented in this encounter Care Teams Cloth Beamer Relationship Specialty Start Date End Date Lurdes Thomas MD PCP - General Internal Medicine 06/11/14 12/16/20 documented as of this encounter
--- OUTSIDE RECORDS SUMMARY | 2022-04-21 03:49 | XMS_ITS | Encounter Summary ---
:1955 Author Organization [facility] Address [address] [place] [address]. [place] [address] Care Team Providers Name Role Phone Lurdes Thomas MD Primary Care Provider [phone] Reason for Visit Reason Onset Date Comments Other 07/21/2014 Pt. needs letter Encounter Details Date Type Department Care Team Description 07/21/2014 Telephone [facility] [place] Other (Pt . needs [facility] MD [place] letter) See XX RESIGNED XX [address] [facility] [address] [place] [address] [place] [address] [place] [address] [place] [address] [phone] Social History Tobacco Use Types Packs/Day Years Used Date Smoking Tobacco: Never Smokeless Tobacco: Never Alcohol Use Standard Drinks/Week Comments Yes 0 (1 standard drink = 0.6 oz pure alcoho l) not often Sex Assigned at Date Recorded Male 08/05/2020 2:57 PM CDT documented as of this encounter Miscellaneous Notes Telephone Encounter - Judi Crane - 07/21/2014 3:55 PM CST Could you please call this pt. To discuss a letter he needs? Thanks FIC ENGINEER documented in this encounter Plan of Treatment Not on filedocumented as of this encounter Visit Diagnoses Not on filedocumented in this encounter Care Teams Propeller Driven Airplane Mechanic Relationship Specialty Start Date End Date Lurdes Thomas MD PCP - General Internal Medicine 06/11/14 12/16/20 documented as of this encounter
--- OUTSIDE RECORDS SUMMARY | 2022-04-21 03:49 | XMS_ITS | Encounter Summary ---
:1955 Author Organization [facility] Address [address] [place] [address]. [place] [address] Care Team Providers Name Role Phone Lurdes Thomas MD Primary Care Provider [phone] Reason for Visit Reason Comments Pre-Op Exam Encounter Details Date Type Department Care Team Description 08/11/2014 Office Visit [facility] Lurdes Thomas Preop gen eral physical exam (Primary Dx); Uzair Laughlin MD Parkinson disease (H); [address] [employer] Leg swelling; [place] [address] [address] Acute bronchitis [phone] [place], [place] [address] Social History Tobacco Use Types Packs/Day [...] Thomas MD - 08/11/2014 2:01 PM CDT [address] [address] Dept: [phone] PRE-OP EVALUATION: Today's date: 08/11/2014 Andrew Pang (: 1955) presents for pre-operative evaluation assessment as requested by . He requires evaluation and anesthesia risk assessment prior to undergoing surgery/procedurefor treatment of Parkinson's . Proposed procedure: Deep Brain Stimulator insertion Date of Surgery/ Procedure: 09/09 Time of Surgery/ Procedure: 529 Hospital/Surgical Facility: [facility] Primary Physician: [...] normal with ejection fraction 62 per. ECHO (2/4/15): normal, EF 55-60% PFTs (07/06): mild restriction, [...] cardiovascular risks for perioperative complications such as (PR, PE, VFib and 3?? AV Block): No [...] this evaluation report is provided to requesting physicianPablo Reynolds Preop Guidelines documented in this encounter Nursing [...] bronchitis documented in this encounter Care Teams Telemarketing Fundraiser Relationship Specialty Start Date End Date Lurdes Thomas MD PCP - General Internal Medicine 06/11/14 12/16/20 documented as of this encounter
--- OUTSIDE RECORDS SUMMARY | 2022-04-21 03:49 | XMS_ITS | Encounter Summary ---
:1955 Author Organization [facility] Address [address] [facility] [place] [address] Care Team Providers Name Role Phone Lurdes Thomas MD Primary Care Provider [phone] Encounter Details Date Type Department Care Team Description 10/09/2014 Medical Correspondence M [facility] Scan, LETTER FROM [facility], Non-Provider NIECY COOPER, Health Info Elicia CONTRERAS MD-09/20 Srvcs [address] [facility] [address] [place] [address] Social History Tobacco Use Types [...] on filedocumented in this encounter Care Teams Passenger Solicitor Relationship Specialty Start Date End Date Lurdes Thomas MD PCP - General Internal Medicine 06/11/14 12/16/20 documented as of this encounter
--- OUTSIDE RECORDS SUMMARY | 2022-04-21 03:49 | XMS_ITS | Encounter Summary ---
:1955 Author Organization [facility] Address [address] [place] [address]. [place] [address] Care Team Providers Name Role Phone Lurdes Thomas MD Primary Care Provider [phone] Reason for Visit Reason Onset Date Comments Hospital F/U 09/11/2014 Parkinsons Disease, S/P Deep Brain Stimulator Placement, S/P Deep Brain Stimulato r Placement, 09/10/14, 0/1 Encounter Details Date Type Department Care Team Description 09/11/[address] [facility] F/U 1440 [facility] MD [place] (Parkinsons Disease, [place] [address] [facility] S/P Deep Brain [phone] [place] Stimulator Placement, [address] [facility] S/P Deep B rain RD Stimulator Placement, [place], [place] [address] 09/10/14, 0/1 ) [phone] (Wo rk) Social History Tobacco Use Types Packs/Day Years Used Date Smoking Tobacco: Never Smokeless Tobacco: Never Alcohol Use Standard Drinks/Week Comments Yes 0 (1 standard drink = 0.6 oz pure alcoho l) not often Sex Assigned at Date Recorded Male 08/05/2020 2:57 PM CDT documented as of this encounter Miscellaneous Notes Telephone Encounter - Chanell Villa RN - 09/15/2014 4:24 PM CDT ED / Discharge Outreach Protocol Patient Contact Attempt # 2 Was call answered? No. Left message on voicemail with information to call me back. Maggie, switch engineer Nurse Telephone Encounter - Kiara Oviedo RN - 09/11/2014 12:52 PM CDT ED / Discharge Outreach Protocol Patient Contact Attempt # 1 Was call answered? No. Left message on voicemail with information to call me back. Telephone Encounter - Josy Garza - 09/11/2014 10:53 AM CDT Please contact patient for In-patient follow up. [phone] (home) None (work) Visit date: 09/10/14 Diagnosis listed:Parkinsons Disease, S/P Deep Brain Stimulator Placement, S/P Deep Brain Stimulator Placement Number of visits in past 12 months:0/1 documented in this encounter Plan of Treatment Not on filedocumented as of this encounter Visit Diagnoses Not on filedocumented in this encounter Care Teams Welfare Visitor Relationship Specialty Start Date End Date Lurdes Thomas MD PCP - General Internal Medicine 06/11/14 12/16/20 documented as of this encounter
--- OUTSIDE RECORDS SUMMARY | 2022-04-21 03:49 | XMS_ITS | Encounter Summary ---
:1955 Author Organization [facility] Address [address] [place] [address]. [place] [address] Care Team Providers Name Role Phone Lurdes Thomas MD Primary Care Provider [phone] Encounter Details Date Type Department Care Team Description 11/25/2014 Orders Only [facility] Eag an Hyperlipidemia LDL goal < [address] [place] [address] Social History Tobacco Use Types Packs/Day [...] to direct LDL (11/25/2014 7:57 AM CDT) P athologist Signature Cholesterol 219 (H) <200 mg/dL [facility] Comment: LDL Cholesterol is the primary guide to therapy. The NCEP recommends further evaluation of: patients with cholesterol greater than 200 mg/dL if additional risk facto rs are present, cholesterol greater than 240 mg/dL, triglycerides greater than 1 50 mg/dL, or HDL less than 40 mg/dL. Triglycerides 153 (H) 0 - 150 mg/dL [facility] Comment: Fasting specimen HDL Cholesterol 65 >40 mg/dL [facility] LDL Cholesterol Calculated 123 0 - 129 mg/dL [facility] Comment: LDL Cholesterol is the primary guide to therapy: LDL-cholesterol goal in high risk patients is <100 mg/dL and in very high risk patients is <70 mg/dL. VLDL-Cholesterol 31 (H) 0 - 30 mg/dL [facility] Cholesterol/HDL Ratio 3.4 0.0 - 5.0 [facility] Specimen Anatomical Collection Method Collection Time Receive d Time (Source) Location / / Volume Laterality Blood specimen 11/25/2014 7:57 AM 015 7:58 (specimen) CDT AM CDT Lurdes Thomas MD LAB - BLOOD ORDERABLES Performing Organization Address City/State/ZIP Code Phon e Number [facility] [address] [place] [address] documented in this encounter Visit Diagnoses Diagnosis Hyperlipidemia LDL goal < 130 Other and unspecified hyperlipidemia documented in this encounter Care Teams Industrial Servicer Relationship Specialty Start Date End Date Lurdes Thomas MD PCP - General Internal Medicine 06/11/14 12/16/20 documented as of this encounter
--- OUTSIDE RECORDS SUMMARY | 2022-04-21 03:49 | XMS_ITS | Encounter Summary ---
:1955 Author Organization [facility] Address [address] [facility] [place] [address] Care Team Providers Name Role Phone Lurdes Thoams MD Primary Care Provider [phone] Reason for Visit Auth/Cert - Closed Specialty Diagnoses / Procedures Referred By Contact Refer red To Contact Surgery Diagnoses PARKINSONS DISEASE Sh Periop Services Procedures IMPLANT PULSE GENERATOR SUBCUTANEOUS [address], [address] [place] [address] Phone: Referral ID Status Reason Start Date Expiration Date Visits Requ ested Visits Authorized [id number] Closed 1 1 Encounter Details Date Type Department Care Team Description 09/16/2014 Anesthesia Event [facility] Jacquie Coughlin ANESTHESIOLOGY [address] [place] [id number] Simone PeriOP Ser Rogelio Gee MD [facility] ANESTHESIOLOGISTS [address] [place] [id number] [address], [address] [place] [address] Anesthesia Record Procedure Summary Procedure Name Responsible Anesthesia Start Anesthesia Stop Anesthesiologist Time Time BILATERAL LEAD EXTENSION Jacquie Coughlin 09/16/14 0723 5 0852 AND RIGHT INFRACLAVICULAR PULSE GENERATOR PLACEMENT ([employer]) (Chest) Events Date Time Event Comment 09/16/2014 0721 [...] EXTENSION AND RIGHT INFRACLAVICULAR PULSE GENERATOR PLACEMENT ([employer]) Anesthesia type: General, ETT Post Op Diagnosis: [...] Discectomy cervical minimally invasive one level 2000 ??? Optical tracking system insertion deep brain [...] Arline Hutson APRN CNP vitamin D (ERGOCALCIFEROL) 70909 UNIT capsule Take 1 capsule (50,000 Units) [...] 1900 04/12/10 Lurdes Thomas MD No current [facility]-ordered facility-administered medications on file. No current [facility]-ordered outpatient prescriptions on file. Wt Readings from [...] results for input(s): INR in the last 50060 hours. Invalid input(s): APTT RECENT LABS: ECG: [...] benefits and alternatives discussed with: patient or community engagement representative. . History & Physical Review History [...] 09/16/2014 7:25 AM CDT lidocaine injection 2% (MDV) Given 09/16/2014 7:31 AM CDT 60 mg [...] Intra-op documented in this encounter Care Teams Client Coordinator Relationship Specialty Start Date End Date Lurdes Thomas MD PCP - General Internal Medicine 06/11/14 12/16/20 documented as of this encounter
--- OUTSIDE RECORDS SUMMARY | 2022-04-21 03:49 | XMS_ITS | Encounter Summary ---
:1955 Author Organization [place] Address [address] [place] [address] Care Team Providers Name Role Phone Lurdes Thomas MD Primary Care Provider [phone] Reason for Visit Auth/Cert - Closed Specialty Diagnoses / Procedures Referred By Contact Refer red To Contact Surgery Diagnoses PARKINSONS DISEASE Sh Periop Services Procedures OPTICAL TRACKING SYSTEM INSERTION DEEP BRAIN STIMULATION BILATERAL [address] [place] [address] Phone: Referral ID Status Reason Start Date Expiration Date Visits Requ ested Visits Authorized [id number] Closed 1 1 Encounter Details Date Type Department Care Team Description 09/09/2014 Surgery [facility] Gonzalez Rowland BILATERAL SUBTHALMIC [place] PeriOP MD Tylor NUCLEUS DEEP BRAIN Services XX RESIGNED XX STIMULATOR [address] [place] [address] [place] [address] [phone] Surgery Details Date/Time Status Location OR Service Patient Case Case Traum a Class Class Type Case? 09/09/14 7:30 Posted OR OR M Neurosurgery Surgery AM 35 Admit Panel 1 Procedure LRB Anes Op Region Wound Class Commen ts BILATERAL SUBTHALMIC Bilateral MAC Head I-Clean BILA TERAL SUBTHALMIC NUCLEUS DEEP BRAIN NUCLEU S DEEP BRAIN STIMULATOR STIMULATOR Surgeon Surgeon Role Service Panel Gonzalez Rowland MD Primary Neurosurgery 1 Arline Peñaloza APRN CNP Assisting Oil Spreader Operator Shereen pretty 1 documented in this [...] APRN CNP - 09/10/2014 9:19 AM CDT [facility] Discharge Summary Neurosurgery Date of Admission: 09/09/2014 [...] up with further consultation recommendations. Rachel Cuadra GAS STATION CASHIER [facility] [address] [place] [address] Pager [phone] Significant Results and Procedures NONE Pending Results [...] other recreational vehicles Call my office at [phone] for increasing redness, swelling or pus draining [...] deep brain stimulator placement vitamin D (ERGOCALCIFEROL) 28787 UNIT capsule Take 1 capsule (50,000 Units) [...] documented in this encounter Discharge Instructions Discharge InstructionsRachel Cuadra APRN [facility] - 09/10/2014 9:19 AM CDT Discharge instructions: No lifting of more than 10 pounds until follow up visit as scheduled Ok to walk as tolerated, avoid bedrest. Ok to use ice to areas. No contact sports until after follow up visit No high impact activities such as; running/jogging, Biking, snowmobile or 4 miller riding or any other recreational vehicles Call my office at [phone] for increasing redness, swelling or pus draining [...] Take 1 capsule 4 capsule 2 08/2602/12/2015 06794 UNIT (50,000 Units) by capsuleIndications: Vitamin mouth [...] Thomas MD - 08/25/2014 12:38 PM CDT [address] [address] Dept: [phone] PRE-OP EVALUATION: Today's date: 08/25/2014 Andrew Pang (: 1955) presents for pre-operative evaluation assessment as requested by . He requires evaluation and anesthesia risk assessment prior to undergoing surgery/procedurefor treatment of Parkinson's . Proposed procedure: Deep brain stimulator implant Date of Surgery/ Procedure: 09/09& Time of Surgery/ Procedure: 529 Hospital/Surgical Facility: [facility] Primary Physician: Lurdes Thomas Type of Anesthesia [...] care (reference Craniotomy/Craniectomy/Cranioplasty (Adult) CPG). Outcome: Improving [phone] Neuro: slight tremors hands, would freeze at [...] neuro checks to resume. Op Note - Janett Gonzalez - 09/09/2014 10:52 AM CDT PREOPERATIVE DIAGNOSIS: Parkinson's Disease POSTOPERATIVE DIAGNOSIS: same OPERATIVE PROCEDURE: bilateral STN deep brain stimulator placement SURGEON: Gonzalez Rowland MD Oil Spreader Operator: Arline Hutson NP 59 yo man [...] eda holes were made with the 14mm casualty claims supervisor drill over the markedbony entry points. The [...] microelectrode were inserted at 15mm above target, clxmgmof2gr and impedences confirmed <400kohms. I began advancing [...] effects. The decisionwas made to insert a TM3 Systemstronic 3389 macroelectrode with the distal 0 contact [...] The decision was made to insert a TM3 Systemstronic 3389 macroelectrode with the distal 0 contact [...] 8:20 CDT AM CDT Gonzalez Rowland MD [facility] POCT Performing Organization Address City/State/ZIP Code Phon [...] stimulator leads. LOGAN GUILLERMO MD Arline Peñaloza HOUSEKEEPER GAS STATION CASHIER IMG CT ORDERABLES Hemoglobin (09/09/2014 6:10 AM CDT) athologist Signature Hemoglobin 14.8 13.3 - 17.7 [place] g/dL [facility] Specimen Anatomical Collection Method Collection Time Receive d Time (Source) Location / / Volume Laterality Blood specimen 09/09/2014 6:10 AM 015 6:13 (specimen) CDT AM CDT Jac[facility]ie [facility] LAB - BLOOD ORDERABLES Performing Organization Address City/State/ZIP Code Phon e Number [facility] [address] [place] [address] [place] [address] [place] [address] Potassium (09/09/2014 6:10 AM CDT) athologist Signature Potassium 3.4 3.4 - 5.3 [place] mmol/L [facility] Specimen Anatomical Collection Method Collection Time Receive d Time (Source) Location / / Volume Laterality Blood specimen 09/09/2014 6:10 AM 015 6:13 (specimen) CDT AM CDT Jac[facility]ie Cough[facility] LAB - BLOOD ORDERABLES Performing Organization Address City/State/ZIP Code Phon e Number [facility] [address] [place] [address] [facility] [address] [place] [address] documented in this encounter Visit Diagnoses Not [...] 0.9% 1000 mL Bottle PRN, Starting on 09/09/14 at 0857, Intra-procedure lidocaine 1%, EPINEPHrine Given [...] Site /Surgical Site 09/09/14 at 0858, Intra-procedure zvhxmrzn-xvnepnyifx-ejnhgykvd-calcium Given 09/09/2014 4 mLs Operative (TISSEEL) topical [...] 100 mg (CANCELED) 1402 (Given - Provider: Naism Haddad RN)2006 (Given - Provider: Nomi Manuel [...] (CANCELED) 1441 (Given - Provider: Nasim Haddad, RN)1851 (Given - Provider: Chloé Davalos, RN) 0528 (Given - Provider: Nomi Manuel , RN)0918 (Given - Provider: Ivelisse Mccormack, JAMAL)1430 (Canceled Entry - Provider: Orders Generic Provider - Comment: Automatically canceled at discontinue of medication order) 1 tablet, Oral, 4 TIMES DAILY, First dos e on Mon09/09/14 at 1430, DO NOT CRUSH. GIve at 0600 1000 1430 and 1900 carbidopa-levodopa (SINEMET) 25-100 MG 1 tablet (CANCELED) 1143 (Given - Provider: Cami Alves, JAMAL) 1 tablet, Oral, 3 TIMES DAILY, First dose on Mon09/09/14 at 1400 , PACU ceFAZolin (ANCEF) intermittent infusion 2 g (pre-mix) (COMPL ETED) 0625 (Handoff - Provider: Lori Comer RN)0754 (Given - Provider: Millicent Enciso APRN POWER CRANE OPERATOR)0954 (Given - Provider: Millicent Enciso APRN CRNA) Routine, 2 g, Intravenous, PRE-OP/PRE-AL OCEDURE, Starting on Mon09/09/14 at 0543, For [...] mg (CANCELED) 1402 (Given - Provider: Nasim Haddad, JAMAL)1851 (Given - Provider: Chloé Davalos, JAMAL) 0528 (Given - Provider: Nomi Manuel, RN)0920 (Given - Provider: Ivelisse Mccormack RN)1430 [...] Reason: Patient/family refused)2006 (Given - Provider: Nomi Maneul, JAMAL) 0918 (Given - Provider: Ivelisse Mccormack, RN) [...] JAMAL) 0526 (Given - Provider: Nomi Manuel RN)1215 [...] Ivelisse Mccormack, RN)1100 (Stopped - Provider: Ivelisse Mccormack, JAMAL) at 75 mL/hr, Intravenous, CONTINUOUS, Un til tolerating PO, Post-procedure, Starting Mon09/09/14 at 1215, Until Mon09/10/14 at 1701 lactated ringers infusion (CANCELED) 062 5 (New Bag - Provider: Lori Comer RN)0726 (Anesthesia Volume Adjustment - Provider: Millicent Enciso APRN POWER CRANE OPERATOR)1020 (New Bag - Provider: Millicent M Odash, HOUSEKEEPER POWER CRANE OPERATOR)1059 (Anesthesia Volume Adjustment - Provider: Millicent Enciso, HOUSEKEEPER POWER CRANE OPERATOR) at 75-100 mL/hr, Intravenous, CONTINUOUS , UNLESS otherwise indicated., Pre- procedure, Starting on Mon09/09/14 at 0545, Until Mon09/09/14 at 1053 niCARdipine 40 mg in 200 mL 0.9% NaCl (CARDENE) infusion (CA NCELED) 1215 (New Bag - Provider: Nasim Haddad RN)1638 (New Bag - Provider: Chloé Davalos, RN)1732 [...] RN) 0.3-0.5 mg, Intravenous, EVERY 30 MIN AL N, Starting Mon09/09/14 at 1209, Until Mon09/10/14 [...] Mon09/09/14 at 0858, Intra-procedure sodium chloride 0.9% (bottle) irrigation (CANCELED) 0900 (Given - Provider: Gonzalez Rowland) PRN, Starting on Mon09/09/14 at 0900, Intra-procedure thrombin 5000 UNITS vial (CANCELED) 0858 (Given - Provider: Gonzalez Rowland) PRN, Starting on Mon09/09/14 at 0858, Intra-procedure cjfrpnvj-kohoskpunx-lozjsjfkk-calcium (TISSEEL) topical solu tion (CANCELED) 0859 (Given - Provider: Gonzalez Rowland)0900 (Given - Provider: Gonzalez Rowland)0901 (Given - Provider: Gonzalez Rowland)0921 (Given - Provider: Gonzalez Rowland)0943 (Given - Provider: Gonzalez Rowland) PRN, Starting on Mon09/09/14 at 0859, Intra-procedure documented in this encounter Care Teams Hand Embroiderer Relationship Specialty Start Date End Date Lurdes Thomas MD PCP - General Internal Medicine 06/11/14 12/16/20 documented as of this encounter
--- OUTSIDE RECORDS SUMMARY | 2022-04-21 03:49 | XMS_ITS | Encounter Summary ---
:1955 Author Organization [place] Address [address] [place] [address] Care Team Providers Name Role Phone Lurdes Thomas MD Primary Care Provider Reason for Visit Reason Onset Date Comments Refill Request 11/17/2014 PRAVASTATIN 80MG Encounter Details Date Type Department Care Team Description 11/17/2014 Refill [facility] Eag Lurdes Rojas Refill Request [address] [facility] MD [place] (PRAVASTATIN 80MG) [place] [address] [facility] [phone] [address] (Wo rk) Social History Tobacco [...] # refills: 0 Last Office Visit with [facility] primary care provider: 08/25/2014 CHOL 178 09/20/2012 HDL 66 09/20/2012 LDL 95 09/20/2012 TRIG 83 09/20/2012 CHOLHDLRATIO 2.7 09/20/2012 documented in this encounter Plan of Treatment Not on filedocumented as of this encounter Visit Diagnoses Diagnosis Hyperlipidemia LDL goal < 130 - Primary Other and unspecified hyperlipidemia documented in this encounter Care Teams Internet Architect Relationship Specialty Start Date End Date Lurdes Thomas MD PCP - General Internal Medicine 06/11/14 12/16/20 documented as of this encounter
--- OUTSIDE RECORDS SUMMARY | 2022-04-21 03:49 | XMS_ITS | Encounter Summary ---
:1955 Author Organization [place] Address [address] [place] [address] Care Team Providers Name Role Phone Lurdes Thomas MD Primary Care Provider [phone] Reason for Visit Reason Comments Neurologic Problem Staple Removal Encounter Details Date Type Department Care Team Description 09/22/2014 Office Visit [facility] Rachel Cuadra, MECHANICAL PENCILS ASSEMBLER DEVELOPER ANALYST [facility] [address] [place] [address] S/P deep brain Neurosurgery Clinic Arline Peñaloza, MARISOL DEVELOPER ANALYST [address] [place] [address] stimulator placement [place] (Primary Dx) [address] [place] [id number] Social History Tobacco Use Types Packs/Day Years [...] questions regarding post-surgical plan of care. O: [place] removed, wounds are healing well without erythema, [...] you develop new pain, redness, or swelling. Arline Hutson, [facility] [address] [address] Pager [phone] Mony Meraz - 09/22/2014 10:30 AM CDT Andrew Pang is [...] imary documented in this encounter Care Teams Polymer Scientist Relationship Specialty Start Date End Date Lurdes Thomas MD PCP - General Internal Medicine 06/11/14 12/16/20 documented as of this encounter
--- OUTSIDE RECORDS SUMMARY | 2022-04-21 03:49 | XMS_ITS | Encounter Summary ---
:1955 Author Organization [place] Address [address] [facility] [place] [address] Care Team Providers Name Role Phone Lurdes Thomas MD Primary Care Provider [phone] Encounter Details Date Type Department Care Team Description 09/18/2014 Documentation Only [facility] Gonzalez Rowland Neurosurgery Clinic MD See [place] XX RESIGNED XX [address] [facility] out [address] [facility] [address] [place] [address] [place] [address] [phone] Social History Tobacco Use Types Packs/Day Years [...] is because it would provide him with nlrwnh-rbi-rtxpw control of his motor symptoms, which would [...] on filedocumented in this encounter Care Teams Registered Mail Clerk Relationship Specialty Start Date End Date Lurdes Thomas MD PCP - General Internal Medicine 06/11/14 12/16/20 documented as of this encounter
--- OUTSIDE RECORDS SUMMARY | 2022-04-21 03:49 | XMS_ITS | Encounter Summary ---
:1955 Author Organization [place] Address [address] [place] [address] Care Team Providers Name Role Phone Lurdes Thomas MD Primary Care Provider [phone] Reason for Visit Reason Comments Neurologic Problem Encounter Details Date Type Department Care Team Description 09/08/2014 Office Visit [facility] Arline Peñaloza S/Jana cherry eejana brain Neurosurgery Clinic MARISOL Del Real GEOSPATIAL SCIENTIST stimulator placement Patrick [address] (Primary Dx) [address] [place], [place] [address] [address] [place] [phone] Social History Tobacco Use Types Packs/Day Years [...] with tour of facility and escorted to [facility] for CT scan check in. - [...] mins nursing discharge time --Nomi Martell MSN, CREDIT RATING INSPECTOR, GEOSPATIAL SCIENTIST-C signature documented in this encounter Plan of Treatment Not on filedocumented as of this encounter Visit Diagnoses Diagnosis S/P deep brain stimulator placement - Pr imary documented in this encounter Care Teams Gas And Oil Servicer Relationship Specialty Start Date End Date Lurdes Thomas MD PCP - General Internal Medicine 06/11/14 12/16/20 documented as of this encounter
--- OUTSIDE RECORDS SUMMARY | 2022-04-21 03:49 | XMS_ITS | Encounter Summary ---
:1955 Author Organization [place] Address [address] [place] [address]. [place] [address] Care Team Providers Name Role Phone Lurdes Thomas MD Primary Care Provider [phone] Reason for Visit Reason Onset Date Comments Other 11/13/2014 Battery moving in est Encounter Details Date Type Department Care Team Description 11/13/2014 Telephone [facility] Gonzalez Rowland Other (Ba ttery moving Neurosurgery Clinic MD Tylor in chest) [place] XX RESIGNED XX [address] [facility] [address] [place] [id number] [place] [address] [place] [address] [phone] Social History Tobacco Use Types Packs/Day Years Used Date Smoking Tobacco: Never Smokeless Tobacco: Never Alcohol Use Standard Drinks/Week Comments Yes 0 (1 standard drink = 0.6 oz pure alcoho l) not often Sex Assigned at Date Recorded Male 08/05/2020 2:57 PM CDT documented as of this encounter Miscellaneous Notes Telephone Encounter - Rachel Cuadra APRN CNP - 11/13/2014 3:03 PM CDT Pt called [...] filedocumented in this encounter Care Teams Senior Talent Management Consultant Relationship Specialty Start Date End Date Lurdes Thomas MD PCP - General Internal Medicine 06/11/14 12/16/20 documented as of this encounter
--- OUTSIDE RECORDS SUMMARY | 2022-04-21 03:49 | XMS_ITS | Encounter Summary ---
:1955 Author Organization [place] Address [address] [facility] [place] [address] Care Team Providers Name Role Phone Lurdes Thomas MD Primary Care Provider [phone] Encounter Details Date Type Department Care Team Description 09/03/2014 Medical Correspondence [facility] FELICE Hernández [facility], Non-Provider MD-ORDER -09/03/2014 Health Info [facility] [address] [facility], [address] [place] [address] Social History Tobacco Use Types [...] on filedocumented in this encounter Care Teams Client Services Director Relationship Specialty Start Date End Date Lurdes Thomas MD PCP - General Internal Medicine 06/11/14 12/16/20 documented as of this encounter
--- OUTSIDE RECORDS SUMMARY | 2022-04-21 03:49 | XMS_ITS | Encounter Summary ---
:1955 Author Organization [place] Address [address] [place] [address] Care Team Providers Name Role Phone Lurdes Thomas MD Primary Care Provider [phone] Reason for Visit Reason Onset Date Comments Refill Request 08/20/2014 PRAVASTATIN 80MG Encounter Details Date Type Department Care Team Description 08/20/2014 Refill [facility] Eag an Lurdes Thomas Refill Request [address] [facility] MD [place] (PRAVASTATIN 80MG) [place] [address] [facility] [phone] [place] [address] (Wo rk) Social History Tobacco Use [...] MyChart to patient with this information. Sole Cates RN Telephone Encounter - Lurdes Thomas MD - 08/20/2014 1:26 PM CDT Needs to check lipids in August. Was not taking medication. Will fill for 90 days only. Lurdes Thomas MD Internal Medicine/Pediatrics Telephone Encounter - Cindy Sal - 08/20/2014 1:10 PM CDT [facility] 08-11-14 LDL Cholesterol Calculated Date Value Ref [...] hyperlipidemia documented in this encounter Care Teams Paper Colorer Relationship Specialty Start Date End Date Lurdes Thomas MD PCP - General Internal Medicine 06/11/14 12/16/20 documented as of this encounter
--- OUTSIDE RECORDS SUMMARY | 2022-04-21 03:49 | XMS_ITS | Encounter Summary ---
:1955 Author Organization [place] Address [address] [facility] [place] [address] Care Team Providers Name Role Phone Lurdes Thomas MD Primary Care Provider [phone] Reason for Visit Auth/Cert - Closed Specialty Diagnoses / Procedures Referred By Contact Refer red To Contact Surgery Diagnoses PARKINSONS DISEASE Sh Periop Services Procedures IMPLANT PULSE GENERATOR SUBCUTANEOUS [address] [place] [address] Phone: Referral ID Status Reason Start Date Expiration Date Visits Requ ested Visits Authorized [id number] Closed 1 1 Encounter Details Date Type Department Care Team Description 09/16/2014 Hospital Encounter [facility] Gonzalez Rowland PreOP/Phase Liliam [place] II XX RESIGNED XX [address] [place] [address] [place] [address] [phone] Social History Tobacco Use Types Packs/Day Years [...] documented in this encounter Discharge Summaries Arline Hutson, MARISOL PLASTICS SHEET FINISHING PRESS OPERATOR - 09/16/2014 8:46 AM CDT Physician Discharge Summary Patient ID: Andrew Pang [id number] 59 year old 1955 Admit date: 09/16/2014 Discharge date and time: 09/16/2014 Admitting Physician: [place] Rowland MD Discharge Physician: Arline Hutson [facility] Admission Diagnoses: PARKINSONS DISEASE Discharge Diagnoses: [...] deep brain stimulator placement vitamin D (ERGOCALCIFEROL) 49921 UNIT capsule Take 1 capsule (50,000 Units) [...] day of discharge: A+Ox3 Attends Fluent Follows PERRL FS TM BUE 09/23 BLE 5/5 Ann management decisions made by me: 59 [...] Deep Brain Stimulator Postop Instructions Dr. Rowland [phone] 1. Ok to shower after 3 days. [...] have aDBS and the contact number for [facility] should be provided. ?? Some procedures require that the DBS system is turned off. [facility] can also instruct and guide regarding this. ?? You have been given a patient asp net programmer that can check that the [...] Take 1 capsule 4 capsule 2 08/2602/12/2015 19665 UNIT (50,000 Units) by capsuleIndications: Vitamin mouth every 7 D deficiency disease days documented as of this encounter H&P Notes Corine Alexander - 09/11/2014 7:49 AM CDT The purpose of this note is to make the H&P performed in the clinic within the last 30 days available in the hospital surgical encounter. Source Note - Lurdes Thomas MD - 08/25/2014 12:38 PM CDT [address] [address] Dept: [phone] PRE-OP EVALUATION: Today's date: 08/25/2014 Andrew Pang (: 1955) presents for pre-operative evaluation assessment as requested by . He requires evaluation and anesthesia risk assessment prior to undergoing surgery/procedurefor treatment of Parkinson's . Proposed procedure: Deep brain stimulator implant Date of Surgery/ Procedure: 09/09& Time of Surgery/ Procedure: 529 Hospital/Surgical Facility: [facility] Primary Physician: Lurdes Thomas Type [...] cardiovascular risks for perioperative complications such as ([place], PE, VFib and 3?? AV Block): No [...] Guidelines documented in this encounter Nursing Notes Fallon, Marcela H, RN - 09/17/2014 10:43 AM CDT Will [...] bilateral lead extensions SURGEON: Gonzalez Rowland MD Shake Table Operator: Arline Hutson NP PROCEDURE: The patient was [...] mcg (CANCELED) 0913 (Given - Provider: Naima Hearn, JAMAL)0950 (Given - Provider: Marcela Lehman, JAMAL) 25-50 [...] PACU ondansetron (ZOFRAN) injection 4 mg (CANCELED) 905 (Given - Provider: Naima Hearn RN) 4 [...] t (COMPLETED) 1005 (Given - Provider: Marcela Lehman, JAMAL) 1-2 tablet, Oral, ONCE PRN, moderate to severe pain, Starting Mon09/16/14 at 0856, For 1 dose, One time prior to discharge Maximum acetaminophen dose from all sources= 75 mg/kg/day not to exceed 4 grams, Post-procedure documented in this encounter Care Teams Pasteurizing Supervisor Relationship Specialty Start Date End Date Lurdes Thomas MD PCP - General Internal Medicine 06/11/14 12/16/20 documented as of this encounter
--- OUTSIDE RECORDS SUMMARY | 2022-04-21 03:49 | XMS_ITS | Encounter Summary ---
:1955 Author Organization [place] Address [address] [place] [place] [address] Care Team Providers Name Role Phone Lurdes Thomas MD Primary Care Provider [phone] Reason for Visit (Routine) - Closed Specialty Diagnoses / Procedures Referred By Contact Refer red To Contact Radiology / Radiology. Diagnoses R#NA, BC, Epic Order Sh Ct Scan Procedures CT HEAD [address] [place] [address] Phone: Referral ID Status Reason Start Date Expiration Date Visits Requ ested Visits Authorized [id number] Closed 08/11/2014 08/11/2015 1 1 Encounter Details Date Type Department Care Team Description 09/08/2014 Hospital Encounter [facility] Rachel Cuadra rkinson's disease [facility], RETAIL ACCOUNT SPECIALIST DINING SERVICE SUPERVISOR (H) [address] [place] [address] ORTHOPEDICS [phone] [place] [address] Social History Tobacco Use Types Packs/Day Years [...] Take 1 capsule 4 capsule 2 08/2602/12/2015 58541 UNIT (50,000 Units) by capsuleIndications: Vitamin mouth [...] abnormality. FAMILIA GUILLERMO MD Rachel Cuadra APRN DINING SERVICE SUPERVISOR IMG CT ORDERABLES documented in this encounter Visit Diagnoses Diagnosis Parkinson's disease (H) Paralysis agitans documented in this encounter Care Teams Business And Services Instructor Relationship Specialty Start Date End Date Ludres Thomas MD PCP - General Internal Medicine 06/11/14 12/16/20 documented as of this encounter
--- OUTSIDE RECORDS SUMMARY | 2022-04-21 03:49 | XMS_ITS | Encounter Summary ---
:1955 Author Organization [place] Address [address] [facility] [place] [address] Care Team Providers Name Role Phone Lurdes Thomas MD Primary Care Provider [phone] Reason for Visit Auth/Cert - Closed Specialty Diagnoses / Procedures Referred By Contact Refer red To Contact Surgery Diagnoses PARKINSONS DISEASE Sh Periop Services Procedures OPTICAL TRACKING SYSTEM INSERTION DEEP BRAIN STIMULATION BILATERAL [address] [place] [address] Phone: Referral ID Status Reason Start Date Expiration Date Visits Requ ested Visits Authorized [id number] Closed 1 1 Encounter Details Date Type Department Care Team Description 09/09/2014 Anesthesia Event [facility] Andrew Narayan [place] [facility] shyann WHITTAKER [address] [place] [address] [place]IOLOGIS [place] [address] [phone] [place] [address] Anesthesia Record Procedure Summary Procedure Name Responsible Anesthesia Start Anesthesia Stop Anesthesiologist Time Time BILATERAL SUBTHALMIC Andrew Narayan MD 09/09/14 0726 09/09 1059 NUCLEUS DEEP BRAIN STIMULATOR (Bilateral: Head) Events Date Time Event Comment 09/09/2014 0657 0726 An Start 0728 An Start Data 0740 Present 0806 AN INCISION 0807 Present 0900 Present 0947 Quick Note Restarting sedat ion per surgeon 1002 MD Present 1026 Quick Note Pt. Off of 02 1033 an stop data 1033 Quick Note To ER CT scanner with monitors. VSS. 1056 Quick Note Pt. Back from CT and in PACU. VSS thru transfer and in CT scanner. Repo rt to RN. 1059 An Stop Electronically [...] 125/68 Temp: 37 ??C (98.6 ??F) Resp: SpO2: 96% 96% 95% Additional Comments: Anesthesia [...] benefits and alternatives discussed with: patient or nutrition representative. . History & Physical Review History [...] Discectomy cervical minimally invasive one level 1999 Prior to Admission medications Medication Sig Start Date End Date Taking? Authorizing Provider oxyCODONE-acetaminophen (PERCOCET) 5-325 MG per tablet Take 1-2 tablets by mouth every 4 hours as needed for moderate to severe pain 09/08/14 Yes Arline Hutson APRN CNP vitamin D (ERGOCALCIFEROL) 02658 UNIT capsule Take 1 capsule (50,000 Units) [...] Thomas MD Current Facility-Administered Medications Ordered in [facility] Medication Dose Route Frequency Last Rate Last [...] results for input(s): INR in the last 25657 hours. Invalid input(s): APTT RECENT LABS: ECG: NSR ECHO: CXR: documented in this encounter Miscellaneous Notes Anesthesia Care Transfer Note - Millicent Enciso APRN RAIL SWITCH OPERATOR - 09/09/2014 10:58 AM CDT Anesthesia [...] mg documented in this encounter Care Teams Material Control Analyst Relationship Specialty Start Date End Date Lurdes Thomas MD PCP - General Internal Medicine 06/11/14 12/16/20 documented as of this encounter
--- OUTSIDE RECORDS SUMMARY | 2022-04-21 03:49 | XMS_ITS | Encounter Summary ---
:1955 Author Organization [place] Address [address] [place] [address] Care Team Providers Name Role Phone Lurdes Thomas MD Primary Care Provider [phone] Reason for Visit (Routine) - Closed Specialty Diagnoses / Procedures Referred By Contact Refer red To Contact Radiology / Radiology. Diagnoses R#NA, BC, Epic Order Sh Mri Procedures MR BRAIN WWO [address] [place] [address] Phone: Referral ID Status Reason Start Date Expiration Date Visits Requ ested Visits Authorized [id number] Closed 07/28/2014 07/28/2015 1 1 Encounter Details Date Type Department Care Team Description 08/26/2014 Hospital Encounter [facility] Rachel Cuadra rkinson's disease [facility], COSMETIC MAKER COPYWRITING INTERN (H) [address] [place] [address] ORTHOPEDICS [phone] [place], [place] [address] Social History Tobacco Use Types Packs/Day Years [...] Take 1 capsule 4 capsule 2 08/2602/12/2015 04629 UNIT (50,000 Units) by capsuleIndications: Vitamin mouth [...] planning purposes. COMPARISON: Diagnostic brain MRI from [facility] 05/26/2014. FINDINGS: The ventricles are normal [...] planning purposes. COMPARISON: Diagnostic brain MRI from [facility] 05/26/2014. FINDINGS: The ventricles are normal in s ize. There is no midline shift. There are no extra-axial fluid co llections. There is no evidence for intracranial hemorrhage. IMPRESSION IMPRESSION: Treatment planning brain MRI images with no evidence for acute intracranial pathology. BETTY CLOUD MD Rachel Cuadra APRN COPYWRITING INTERN IMG MRI ORDERABLES documented in this encounter Visit Diagnoses Diagnosis Parkinson's disease (H) Paralysis agitans documented in this encounter Administered Medications Inactive Administered Medications - up to 3 most recent administrations Medication Order MAR Action Action Date Dose Rate Site gadobutrol (GADAVIST) Given 08/26/2014 2:20 PM CDT 20 mLs Right Arm injection 20 mL 20 mL, Intravenous, ONCE, On Mon08/26/14 at 1430, For 1 dose, Supplied by, and administered by MRI. documented in this encounter Care Teams Supervisor Grading Relationship Specialty Start Date End Date Lurdes Thomas MD PCP - General Internal Medicine 06/11/14 12/16/20 documented as of this encounter
--- OUTSIDE RECORDS SUMMARY | 2022-04-21 03:49 | XMS_ITS | Encounter Summary ---
:1955 Author Organization [place] Address [address] [place] [address]. [place] [address] Care Team Providers Name Role Phone Lurdes Thomas MD Primary Care Provider [phone] Reason for Visit Reason Onset Date Comments Panel Management 11/19/2014 Colonoscopy Encounter Details Date Type Department Care Team Description 11/19/2014 Telephone [facility] Lurdes Oh Panel Management [address] [facility] MD [place] (Colonoscopy) [place] [address] [facility] [phone] [address] (Wo rk) Social History Tobacco Use [...] Review Date of last visit with a [facility] provider: Dr Thomas on 09/22/14. Date of next visit with a [facility] provider: None. Problem List Patient Active Problem [...] visit for Colonoscopy/FIT. Type of outreach: Sent [employer] message. Questions for provider review: None Please indicate office visit, lab, MTM, or nurse appt if needed. Indicate fasting or not fasting. Tamy Leahy LPN Chart routed to Care Team . documented in this encounter Plan of Treatment Not on filedocumented as of this encounter Visit Diagnoses Not on filedocumented in this encounter Care Teams Christmas Tree Grower Relationship Specialty Start Date End Date Lurdes Thomas MD PCP - General Internal Medicine 06/11/14 12/16/20 documented as of this encounter
--- OUTSIDE RECORDS SUMMARY | 2022-04-21 03:49 | XMS_ITS | Encounter Summary ---
:1955 Author Organization [place] Address [address] [facility] [place] [address] Care Team Providers Name Role Phone Lurdes Thomas MD Primary Care Provider [phone] Reason for Visit Auth/Cert - Closed Specialty Diagnoses / Procedures Referred By Contact Refer red To Contact Surgery Diagnoses PARKINSONS DISEASE Sh Periop Services Procedures IMPLANT PULSE GENERATOR SUBCUTANEOUS [address] [place] [address] Phone: Referral ID Status Reason Start Date Expiration Date Visits Requ ested Visits Authorized [id number] Closed 1 1 Encounter Details Date Type Department Care Team Description 09/16/2014 Surgery [facility] Gonzalez Rowland BILATERAL LEAD EXTENSION [place] [facility] MD [place] AND RIGHT INFRACLAVICULAR Services XX RESIGNED XX PULSE GENERATOR PLACEMENT [address] ([employer]) [address] [place] [address] [place] [address] [phone] Surgery Details Date/Time Status Location OR Service [...] Primary Neurosurgery 1 Arline Peñaloza APRN CNP Mechanical Inspector Shereen pretty 1 documented in this encounter [...] Physician Discharge Summary Patient ID: Andrew Pang [id number] 59 year old 1955 Admit date: 09/16/2014 Discharge date and time: 09/16/2014 Admitting Physician: Gonzalez Rowland MD Discharge Physician: Arline Hutson [facility] Admission Diagnoses: PARKINSONS DISEASE Discharge [...] deep brain stimulator placement vitamin D (ERGOCALCIFEROL) 33010 UNIT capsule Take 1 capsule (50,000 Units) [...] of discharge: A+Ox3 Attends Fluent Follows [facility] TM BUE 09/23 BLE 09/23 Ann management decisions made by me: 59 yo doing well after DBS lead and generator placement Gonzalez oRwland Date of Service (when I saw the [...] Deep Brain Stimulator Postop Instructions Dr. Rowland [phone] 1. Ok to shower after 3 days. [...] have aDBS and the contact number for [facility] should be provided. ?? Some procedures require that the DBS system is turned off. [employer] can also instruct and guide regarding this. ?? You have been given a patient report programmer that can check that the stimulator [...] Take 1 capsule 4 capsule 2 08/2602/12/2015 62240 UNIT (50,000 Units) by capsuleIndications: Vitamin mouth every 7 D deficiency disease days documented as of this encounter H&P Notes Corine Alexander - 09/11/2014 7:49 AM CDT The purpose of this note is to make the H&P performed in the clinic within the last 30 days available in the hospital surgical encounter. Source Note - Lurdes Thomas MD - 08/25/2014 12:38 PM CDT [address] [address] Dept: [phone] PRE-OP EVALUATION: Today's date: 08/25/2014 Andrew Pang (: 1955) presents for pre-operative evaluation assessment as requested by . He requires evaluation and anesthesia risk assessment prior to undergoing surgery/procedurefor treatment of Parkinson's . Proposed procedure: Deep brain stimulator implant Date of Surgery/ Procedure: 09/09& Time of Surgery/ Procedure: 529 Hospital/Surgical Facility: [facility] Primary Physician: Lurdes Thomas Type of Anesthesia [...] cardiovascular risks for perioperative complications such as (UT, PE, VFib and 3?? AV Block): No [...] evaluation report is provided to requesting physician. [place] Preop Guidelines documented in this encounter Nursing [...] bilateral lead extensions SURGEON: Gonzalez Rowland MD Mechanical Inspector: Arline Hutson NP PROCEDURE: The patient [...] Provider: Pavel Miner) Routine, 2 g, Intravenous, PRE-OP/PRE-MO OCEDURE, Starting on 09/16/14 at 0638, For 1 dose, Give first [...] Gonzalez Rowland - Comment: PRN) PRN, Starting e 09/16/14 at 0741, Intra-procedure fentaNYL (SUBLIMAZE) injection 25-50 mcg (CANCELED) 0913 (Given - Provider: Naima eHarn, JAMAL)0950 (Given - Provider: Marcela Lehman RN) 25-50 mcg, Intravenous, EVERY 2 MIN PRN, Starting e 09/16/14 at 0834, other, acute pain while in PACU., MAX cumulative dose = 250 mcg. Use Fentanyl initially, as a short acting agent for acute pain con trol. If insufficient, or a longer actin g agent is needed, begin Morphine or Hydromorphone if ordered., PACU ondansetron (ZOFRAN) injection 4 mg (CANCELED) 0906 (Given - Provider: Naima Hearn, JAMAL) 4 mg, Intravenous, EVERY 30 MIN PRN, obie sea, vomiting, for 2 Minutes, Starting 09/16/14 at 0834, For 2 doses, MAX total [...] Post-procedure documented in this encounter Care Teams Brewery Worker Relationship Specialty Start Date End Date Lurdes Thomas MD PCP - General Internal Medicine 06/11/14 12/16/20 documented as of this encounter
--- OUTSIDE RECORDS SUMMARY | 2022-04-21 03:49 | XMS_ITS | Encounter Summary ---
:1955 Author Organization [place] Address [address] [place] [address]. [place] [address] Care Team Providers Name Role Phone Lurdes Thomas MD Primary Care Provider [phone] Reason for Visit Reason Comments Pre-Op Exam Encounter Details Date Type Department Care Team Description 08/25/2014 Office Visit [facility] Lurdes Thomas Preop gen eral physical exam (Primary Dx); Uzair Laughlin MD Parkinson disease (H); [address] [facility] Bilateral leg edema; [place] [address] [place] Leg swelling; [phone] [address] [facility] Vitamin D deficiency disease [address] [place], [place] [address] Social History Tobacco Use [...] Thomas MD - 08/25/2014 12:38 PM CDT [address] [address] Dept: [phone] PRE-OP EVALUATION: Today's date: 08/25/2014 Andrew Pang (: 1955) presents for pre-operative evaluation assessment as requested by . He requires evaluation and anesthesia risk assessment prior to undergoing surgery/procedurefor treatment of Parkinson's . Proposed procedure: Deep brain stimulator implant Date of Surgery/ Procedure: 09/09& Time of Surgery/ Procedure: 529 Hospital/Surgical Facility: [facility] Primary Physician: Lurdes Thomas Type [...] D 25 (L) 30 - 75 [facility] ug/L [place] MEDICAL screening [facility] Comment: Season, race, dietary intake, and treatm ent affect the concentration of 85-xnqqjuq-Ljihkvn D. Values may decrea se during winter [...] Organization Address City/State/ZIP Code Phon e Number [facility] [address] [place], [place] [id number] [place] [address] (ABNORMAL) Basic metabolic panel (08/25/2014 1:08 PM CDT) Analysis Performed At Patho logist Time Signature Sodium 137 133 - 144 [place] mmol/L [facility] Potassium 3.5 3.4 - 5.3 [place] mmol/L [facility] Chloride 100 94 - 109 [place] mmol/L [facility] Carbon Dioxide 28 20 - 32 [place] mmol/L [facility] Anion Gap 9 3 - 14 [place] mmol/L [facility] Glucose 132 (H) 70 - 99 [place] mg/dL [facility] Comment: Effective 12/18/2013, the reference range for this assay has changed to reflect new instrumentation/methodology. Urea Nitrogen 18 7 - 30 mg/dL [facility] Comment: Effective 12/18/2013, the reference range for this assay has changed to reflect new instrumentation/methodology. Creatinine 0.77 0.66 - 1.25 [facility] mg/dL [facility] GFR Estimate >90 >60 mL/min/1.7m2 [place] C LINICS Non GFR Calc [facility] GFR Estimate If Black >90 >60 mL/min/1.7m2 [facility] GFR Calc [facility] Calcium 9.3 8.5 - 10.1 mg/dL [facility] Comment: Effective 12/18/2013, the reference range for this assay has changed to reflect new instrumentation/methodology. Specimen Anatomical Collection Method Collection Time Receive d Time (Source) Location / / Volume Laterality Blood specimen 08/25/2014 1:08 PM 015 1:09 (specimen) CDT PM CDT Lurdes Thomas MD LAB - BLOOD ORDERABLES Performing Organization Address City/State/ZIP Code Phon e Number [facility] [address] [place] [address] documented in this encounter Visit Diagnoses Diagnosis Preop general physical exam - Primary Other specified pre-operative examinatio n Parkinson disease (H) Paralysis agitans Bilateral leg edema Edema Leg swelling Swelling of limb Vitamin D deficiency disease Unspecified vitamin D deficiency documented in this encounter Care Teams Hose Stripper Relationship Specialty Start Date End Date Lurdes Thomas MD PCP - General Internal Medicine 06/11/14 12/16/20 documented as of this encounter
--- OUTSIDE RECORDS SUMMARY | 2022-04-21 03:49 | XMS_ITS | Encounter Summary ---
:1955 Author Organization [place] Address [address] [place] [address] [address] Care Team Providers Name Role Phone Lurdes Thomas MD Primary Care Provider [phone] Encounter Details Date Type Department Care Team Description 09/11/2014 Telephone [facility] Nurse Eladia Muñoz, RN [facility] [address] [place] [address] Social History Tobacco Use Types Packs/Day Years Used Date Smoking Tobacco: Never Smokeless Tobacco: Never Alcohol Use Standard Drinks/Week Comments Yes 0 (1 standard drink = 0.6 oz pure alcoho l) not often Sex Assigned at Date Recorded Male 08/05/2020 2:57 PM CDT documented as of this encounter Miscellaneous Notes Telephone Encounter - Shannon Muñoz, JAMAL - 09/11/2014 6:51 PM CDT Call Type: [...] bandages are is very itchy. Will page consumer sales representative for [facility] page concrete gun operator for [facility] to have consumer sales representative Dr. Rowland call Natasha @ [phone]. Did not complete infection screen for ebola. [...] as expected or comes out ? NO optimization analyst (pump, infusion catheter) damaged or not [...] least 15 seconds or use a hand straight cutter machine before and after touching the wound area. [...] on filedocumented in this encounter Care Teams Novelty Twister Operator Relationship Specialty Start Date End Date Lurdes Thomas MD PCP - General Internal Medicine 06/11/14 12/16/20 documented as of this encounter
--- OUTSIDE RECORDS SUMMARY | 2022-04-21 03:49 | XMS_ITS | Encounter Summary ---
:1955 Author Organization [place] Address [address] [facility] [place] [address] Care Team Providers Name Role Phone Lurdes Thomas MD Primary Care Provider [phone] Reason for Visit Auth/Cert - Closed Specialty Diagnoses / Procedures Referred By Contact Refer red To Contact Surgery Diagnoses PARKINSONS DISEASE Sh Periop Services Procedures OPTICAL TRACKING SYSTEM INSERTION DEEP BRAIN STIMULATION BILATERAL [address] [place] [address] Phone: Referral ID Status Reason Start Date Expiration Date Visits Requ ested Visits Authorized [id number] Closed 1 1 Encounter Details Date Type Department Care Team Description [facility]/09[facility] Simone Snider MD Care XX RESIGNED XX [address] [place] [id number] [place] [id number] Social History Tobacco Use Types Packs/Day Years [...] APRN CNP - 09/10/2014 9:19 AM CDT [facility] Discharge Summary Neurosurgery Date of Admission: [...] up with further consultation recommendations. Rachel Cuadra [facility] [place] [address] Pager [phone] Significant Results and Procedures NONE Pending Results [...] other recreational vehicles Call my office at [phone] for increasing redness, swelling or pus draining [...] deep brain stimulator placement vitamin D (ERGOCALCIFEROL) 04137 UNIT capsule Take 1 capsule (50,000 Units) [...] 4 times daily [facility] 1000 1430 1900 Associated Diagnoses: [...] Attends Fluent Follows [facility]ERN[facility] TM BUE 5/ BLE 5/5 Yap management decisions made by me: 59 yo man who did well after DBS placement -wound care per instructions -activity restrictions -followup in clinic Gonzalez Rowland Date of Service (when I saw the patient): 09/10/14 documented in this encounter Discharge Instructions Discharge Rachel Muñoz APRN BABY REGISTRY SALES CONSULTANT - 09/10/2014 9:19 AM CDT Discharge instructions: No lifting of more than 10 pounds until follow up visit as scheduled Ok to walk as tolerated, avoid bedrest. Ok to use ice to areas. No contact sports until after follow up visit No high impact activities such as; running/jogging, Biking, snowmobile or 4 miller riding or any other recreational vehicles Call my office at [phone] for increasing redness, swelling or pus draining [...] Take 1 capsule 4 capsule 2 08/2602/12/2015 97728 UNIT (50,000 Units) by capsuleIndications: Vitamin mouth [...] Thomas MD - 08/25/2014 12:38 PM CDT [address] [address] Dept: [phone] PRE-OP EVALUATION: Today's date: 08/25/2014 Andrew Pang (: 1955) presents for pre-operative evaluation assessment as requested by . He requires evaluation and anesthesia risk assessment prior to undergoing surgery/procedurefor treatment of Parkinson's . Proposed procedure: Deep brain stimulator implant Date of Surgery/ Procedure: 09/09& Time of Surgery/ Procedure: 529 Hospital/Surgical Facility: [facility] NA Primary Physician: Lurdes Thomas Type of Anesthesia [...] evaluation report is provided to requesting physician. [place] Preop Guidelines documented in this encounter Nursing [...] care (reference Craniotomy/Craniectomy/Cranioplasty (Adult) CPG). Outcome: Improving [id number] Neuro: slight tremors hands, would freeze at times with walking/transfer otherwise intact as pre hospitalization per pt. CV: Nicardipine weaned to off keeping SB/P 90-140. GI Eating well. U/O voiding. Discharge instructions reviewed and given, see paper sheets. Discharged with to [facility] with w/cand volunteer Plan of Care [...] brain stimulator placement SURGEON: Gonzalez Rowland MD Activities Attendant: Arlien Hutson NP 59 yo man with RLE [...] eda holes were made with the 14mm outside salesman drill over the markedbony entry points. The [...] microelectrode were inserted at 15mm above target, [id number] and impedences confirmed <400kohms. I began advancing [...] effects. The decisionwas made to insert a Loopd Viatronic 3389 macroelectrode with the distal 0 contact [...] The decision was made to insert a Loopd Viatronic 3389 macroelectrode with the distal 0 contact [...] 8:20 CDT AM CDT Gonzalez Rowland MD LAB - BEAKER POCT Performing Organization Address City/State/ZIP Code Phon [...] stimulator leads. LOGAN GUILLERMO MD Arline Peñaloza ORGANIZATIONAL DEVELOPMENT CONSULTANT BABY REGISTRY SALES CONSULTANT IMG CT ORDERABLES Hemoglobin (09/09/2014 6:10 AM CDT) P athologist Signature Hemoglobin 14.8 13.3 - 17.7 [place] g/dL [facility] Specimen Anatomical Collection Method Collection Time Receive d Time (Source) Location / / Volume Laterality Blood specimen 09/09/2014 6:10 AM 015 6:13 (specimen) CDT AM CDT Jacquie Coughlin LAB - BLOOD ORDERABLES Performing Organization Address City/State/[facility] Phon e Number M [facility] [address] [place] [address] [facility] [address] [place] [address] Potassium (09/09/2014 6:10 AM CDT) P athologist Signature Potassium 3.4 3.4 - 5.3 [place] mmol/L [facility] Specimen Anatomical Collection Method Collection Time Receive d Time (Source) Location / / Volume Laterality Blood specimen 09/09/2014 6:10 AM 015 6:13 (specimen) CDT AM CDT Jacquie Coughlin LAB - BLOOD ORDERABLES Performing Organization Address City/State/ZIP Code Phon e Number M [facility] [address] [place] [address] [facility] [address] [place] [address] documented in this encounter Visit Diagnoses Diagnosis [...] mg, Intravenous, EVERY 30 MIN PRN, severe pain (7-10), Starting on Mon09/09/14 at 1209, Post-procedure Given [...] doses today.) 0528 (Given - Provider: Nomi Manuel, JAMAL)0917 (Given - Provider: Ivelisse Mccormack RN) 100 [...] Enciso APRN CRNA) Routine, 2 g, Intravenous, PRE-OP/PRE-WV OCEDURE, Starting on Mon09/09/14 at 0543, For [...] Volume Adjustment - Provider: Millicent Enciso APRN PHYSIOGNOMIST)1020 (New Bag - Provider: Millicent Enciso APRN PHYSIOGNOMIST)1059 (Anesthesia Volume Adjustment - Provider: Millicent Enciso APRN PHYSIOGNOMIST) at 75-100 mL/hr, Intravenous, CONTINUOUS , UNLESS otherwise indicated., Pre- procedure, Starting on Mon09/09/14 at 0545, Until Mon09/09/14 at 1053 niCARdipine 40 mg in 200 mL 0.9% NaCl (CARDENE) infusion (CA NCELED) 1215 (New Bag - Provider: Nasim Haddad RN)1638 (New Bag - Provider: Chloé Davalos, JAMAL)1732 (Rate/Dose Change - Provider: Chloé Davalos, RN)2253 (New Bag - Provider: Nomi Manuel, RN) 0330 (New Bag - Provider: Nomi Manuel, RN)0700 (Rate/Dose Change - Provider: Nomi Manuel, RN)0751 (Rate/Dose Verify - Provider: Ivelisse Mccormack, [...] Intravenous, EVERY 5 MIN PRN , Starting e 09/09/14 at 1030, Until Mon09/09/14 at 1202, moderate [...] RN) 0.3-0.5 mg, Intravenous, EVERY 30 MIN WV N, Starting Mon09/09/14 at 1209, Until Mon09/10/14 [...] (New Bag - Provider: Millicent Enciso APRN PHYSIOGNOMIST - Comment: surgeon and MDA aware of infusion starting)0850 (Rate/Dose Change - Provider: Millicent Enciso APRN PHYSIOGNOMIST)0853 (Rate/Dose Change - Provider: Millicent Enciso APRN CRNA) CONTINUOUS PRN, Starting on Mon09/09/14 at 0844, Anesthesia Intra-op 0900 (Rate/Dose Change - Provider: Millicent Enciso APRN PHYSIOGNOMIST)0915 (Rate/Dose Change - Provider: Millicent Enciso APRN PHYSIOGNOMIST)0930 (Rate/Dose Change - Provider: Millicent Enciso APRN PHYSIOGNOMIST)0945 (Rate/Dose Change - Provider: Millicent Ecniso APRN PHYSIOGNOMIST) 1000 (Rate/Dose Scott ge - Provider: Millicent Enciso APRN CRNA)1018 (Rate/Dose Change - Provider: Millicent Enciso APRN PHYSIOGNOMIST)1025 (Rate/Dose Change - Provider: Millicent Enciso APRN PHYSIOGNOMIST)1030 (Rate/Dose Change - Provider: Millicent Enciso APRN PHYSIOGNOMIST) 1040 (Rate/Dose Scott ge - Provider: Millicent Enciso APRN CRNA)1045 (Rate/Dose Change - Provider: Millicent Enciso APRN CRNA)1050 (Rate/Dose Change - Provider: Millicent Enciso APRN CRNA)1059 (Rate/Dose Change - Provider: Millicent Enciso APRN CRNA) 1106 (Rate/Dose Veri fy - Provider: Cami Alves, RN)1110 (Rate/Dose Change - Provider: Cami Alves, RN)1156 (ED Infusing on Admission/transfer - Provider: Cami Alves, JAMAL) sodium chloride 0.9% (bottle) irrigation (CANCELED) 0900 (Given - Provider: Gonzalez Rowland) PRN, Starting on Mon09/09/14 at 0900, Intra-procedure thrombin 5000 UNITS vial (CANCELED) 0858 (Given - Provider: Gonzalez Rowland) PRN, Starting on Mon09/09/14 at 0858, Intra-procedure bfrhdqax-wcysnzoaik-szirprona-calcium (TISSEEL) topical solu tion (CANCELED) 0859 (Given - Provider: Gonzalez Rowland)0900 (Given - Provider: Gonzalez Rowland)0901 (Given - Provider: Gonzalez Rowland)0921 (Given - Provider: Gonzalez Rowland)0943 (Given - Provider: Gonzalez Rowland) PRN, Starting on Mon09/09/14 at 0859, Intra-procedure documented in this encounter Care Teams Intake Nurse Relationship Specialty Start Date End Date Lurdes Thomas MD PCP - General Internal Medicine 06/11/14 12/16/20 documented as of this encounter
--- OUTSIDE RECORDS SUMMARY | 2022-04-21 03:50 | XMS_ITS | Encounter Summary ---
:1955 Author Organization [place] Address [address] [place] [address] Care Team Providers Name Role Phone Lurdes Thomas MD Primary Care Provider [phone] Encounter Details Date Type Department Care Team Description 07/18/2014 Hospital Encounter [facility] [address] [place] [id number] Social History Tobacco Use Types Packs/Day Years [...] Take 1 capsule 8 capsule 0 06/1208/01/2014 12481 UNIT (50,000 Units) by capsuleIndications: mouth every [...] 11:24 AM R esults for this ABDOMEN GENERAL DUTY NURSE procedure are i n the results section. documented in this encounter Results MR Digital Archive Non-[place] (05/26/2014 11:24 AM GENERAL DUTY NURSE) Specimen (Source) Anatomical Location Collection Method / Collectio n Time Received Time / Laterality Volume Narrative [facility] - 07/18/2014 11:24 AM GENERAL DUTY NURSE <!--EPICS-->Digitized exam for comparison only; no results available<!--EPICE--> Radiology Non-Fv Credentialed Provider IMG EXTERNAL IM AGING ORDERABLES Performing Organization Address City/State/ZIP Code Phon e Number [facility] documented in this encounter Visit Diagnoses Not on filedocumented in this encounter Care Teams Oil Dispenser Relationship Specialty Start Date End Date Lurdes Thomas MD PCP - General Internal Medicine 06/11/14 12/16/20 documented as of this encounter
--- OUTSIDE RECORDS SUMMARY | 2022-04-21 03:50 | XMS_ITS | Encounter Summary ---
:1955 Author Organization [place] Address [address] [place] [address]. [place] [address] Care Team Providers Name Role Phone Lurdes Thomas MD Primary Care Provider Reason for Visit Reason Comments Hypertension labs Encounter Details Date Type Department Care Team Description 07/27/2011 Office Visit [facility] Lurdes Thomas (Primary Dx); Uzair Laughlin MD Hyperlipidemia LDL goal < 130; [address] Parkinson disease (H); [place] [address] [place] Screening for diabetes mellitus [phone] [address] [place] [address] Social History Tobacco Use Types [...] Comments Blood Pressure 124/70 07/27/2011 10:04 AM PAIRER Pulse 65 07/27/2011 10:04 AM PAIRER Temperature 36.3 ??C (97.3 ??F) 07/27/2011 10:04 AM PAIRER Respiratory Rate - - Oxygen Saturation - - Inhaled Oxygen Concentration - - Weight 87.7 kg (193 lb 6.4 oz) 07/27/2011 10:04 AM PAIRER Height 186.7 cm (6' 1.5) 07/27/2011 10:04 AM PAIRER Body Mass Index 25.17 07/27/2011 10:04 AM PAIRER documented in this encounter Patient Instructions Patient InstructionsLurdes Laughlin MD - 07/27/2011 10:35 AM PAIRER 1. Labs today: cholesterol, electrolytes, diabetes screen, liver function and kidney function 2. Consider checking blood pressure when get hot/flushed feeling 3. Keep a log of when it happens, how Parkinson's is that day, any increased medications, stress/anxiety level ER documented in this encounter Progress Notes Lurdes [...] Parkinson's, HLP. Lurdes Laughlin MD Internal Medicine/Pediatrics ER documented in this encounter Nursing Notes 07/27/2011 10:00 AM CST >> ERROL Alva Jul 27, 2011 10:07 AM Patient presents with: [...] oz(87.726 kg).. BP completed using cuff size: papo Galvan MA documented in this encounter Plan of Treatment Not on filedocumented as of this encounter Procedures Procedure Name Priority Date/Time Associated Diagnosis Comme nts LIPID REFLEX TO Routine 07/27/2011 10:35 Hyperlipidemia LDL Re sults for this DIRECT LDL PANEL AM PAIRER goal < 130 procedure a re in the results section. COMPREHENSIVE Routine 07/27/2011 10:35 Hyperlipidemia LDL Resu lts for this METABOLIC PANEL AM PAIRER goal < 130 procedure are in Screening for diabetes the r esults mellitus section. documented in this encounter Results Comprehensive metabolic panel (07/27/2011 10:35 AM PAIRER) P athologist Signature Sodium 138 133 - 144 [place] mmol/L [facility] Potassium 4.2 3.4 - 5.3 [facility] mmol/L [facility] Chloride 105 94 - 109 [facility] mmol/L [facility] LAB Carbon Dioxide 21 20 - 32 [facility] mmol/L [facility] Anion Gap 11 6 - 17 [facility] mmol/L [facility] Glucose 99 60 - 99 [facility] mg/dL CLIN[facility] LAB Urea Nitrogen 18 7 - 30 [facility] mg/dL CLINIC LAB Creatinine 0.80 0.66 - [facility] 1.25 mg/dL [facility]IN[facility] LAB GFR Estimate >90 >60 [facility] mL/min/1.7 CLINIC LAB m2 GFR Estimate If >90 >60 [facility] Black mL/min/1.7 CLINIC LAB m2 Calcium 9.3 8.5 - 10.4 [facility] mg/dL CLINIC LAB Bilirubin Total 0.7 0.2 - 1.3 [facility] mg/dL CLINIC LAB Albumin 4.2 3.3 - 4.9 [place] [facility] g/dL CLINIC LAB Comment: Reference range changed on 01/21. Protein Total 7.4 6.8 - 8.8 g/dL [facility] Comment: As of 07, reference range reflects plasma specimen type. Alkaline Phosphatase 87 40 - 150 U/L [facility] LAB ALT 20 0 - 70 U/L [facility] AST 35 0 - 45 U/L [facility] IC LAB Specimen Anatomical Collection Method Collection Time Receive d Time (Source) Location / / Volume Laterality Blood specimen 07/27/2011 10:35 2 (specimen) AM PAIRER 10:38 AM PAIRER Lurdes Thomas MD LAB - BLOOD ORDERABLES Performing Organization Address [facility] Phon e Number [address] [address] [facility] LAB (ABNORMAL) Lipid panel reflex to direct LDL (07/27/2011 10:35 AM PAIRER) athologist Signature Cholesterol 236 (H) 0 - 200 [facility] mg/dL CLINIC LAB Comment: LDL Cholesterol is the primary guide to therapy. The NCEP recommends further evaluation of: patients with cholesterol greater than 200 mg/dL if additional risk facto rs are present, cholesterol greater than 240 mg/dL, triglycerides greater than 1 50 mg/dL, or HDL less than 40 mg/dL. Triglycerides 121 0 - 150 mg/dL [facility] HDL Cholesterol 60 40 - 110 mg/dL [facility] LDL Cholesterol Calculated 152 (H) 0 - 129 mg/dL [facility] Comment: LDL Cholesterol is the primary guide to therapy: LDL-cholesterol goal in high risk patients is <100 mg/dL and in very high risk patients is <70 mg/dL. VLDL-Cholesterol 24 0 - 30 mg/dL [facility] Cholesterol/HDL Ratio 3.9 0.0 - 5.0 [facility] Specimen Anatomical Collection Method Collection Time Receive d Time (Source) Location / / Volume Laterality Blood specimen 07/27/2011 10:35 2 (specimen) AM PAIRER 10:38 AM PAIRER Lurdes Thomas MD LAB - BLOOD ORDERABLES Performing Organization Address City/[facility] Phon e Number [id number] [address] [facility] documented in this encounter Visit Diagnoses Diagnosis [place] - Primary Hyperlipidemia LDL goal < 130 Other and unspecified hyperlipidemia Parkinson disease (H) Paralysis agitans Screening for diabetes mellitus documented in this encounter Care Teams Orthopaedic Technologist Relationship Specialty Start Date End Date Lurdes Thomas MD PCP - General Internal Medicine 04/12/10 04/03/13 documented as of this encounter
--- OUTSIDE RECORDS SUMMARY | 2022-04-21 03:50 | XMS_ITS | Encounter Summary ---
:1955 Author Organization [facility] Address [address] [place] [address]. [place] [address] Care Team Providers Name Role Phone Oli Thomas MD Primary Care Provider [phone] Reason for Visit Reason Comments Breathing Problem Encounter Details Date Type Department Care Team Description 06/11/2014 Office Visit [facility] Oli Thomas SOB (shor tness of breath) (Primary Dx); Uzair Laughlin MD Fatigue; 1440 [employer] Vitamin D deficiency disease ; [place] [address] MARY[place]LL Lower extremity edema; [phone] 8675 [facility] GERD (ghazala roesophageal reflux disease) [place], [place] [address] Social History Tobacco Use [...] Comments Blood Pressure 114/70 06/11/2014 8:04 AM HOME MANAGER Pulse 99 06/11/2014 8:04 AM HOME MANAGER Temperature 36.9 ??C (98.5 ??F) 06/11/2014 8:04 AM HOME MANAGER Respiratory Rate - - Oxygen Saturation 94% 06/11/2014 8:04 AM HOME MANAGER Inhaled Oxygen Concentration - - Weight 95.6 kg (210 lb 12.8 oz) 06/11/2014 8:04 AM HOME MANAGER Height 186.7 cm (6' 1.5) 06/11/2014 8:04 AM HOME MANAGER Body Mass Index 27.43 06/11/2014 8:04 AM HOME MANAGER documented in this encounter Patient Instructions Patient InstructionsSerumOli MD - 06/11/2014 9:03 AM HOME MANAGER 1. Labs today: liver function, kidney function, blood counts, vitamin D levels 2. You will be contacted to set up the stress test and echocardiogram (ultrasound) of the heart MANAGER documented in this encounter Progress Notes Oli [...] likely in July. Insurance recently changed and [facility] again within network. Was seen at [facility] last year. Reviewed labs in care everywhere. [...] Allergies, and Medical/Social/Surgical histories reviewed in [facility] andupdated as appropriate. OBJECTIVE: BP 114/70 [...] with Provider - 1 month Oli Thomas [facility] MANAGER documented in this encounter Nursing Notes Tamy [...] using cuff size: large Tamy Leahy LPN MANAGER documented in this encounter Miscellaneous Notes Addendum Note - Oli Thomas MD - 06/12/2014 4:46 PM HOME MANAGER Addended by: OLI THOMAS on: 06/12/2014 04:46 PM Modules accepted: Orders MANAGER documented in this encounter Plan of Treatment Not on filedocumented as of this encounter Procedures Procedure Name Priority Date/Time Associated Comments Diagnosis CBC WITH PLATELETS & Routine 06/11/2014 9:05 AM SOB (shortness of Results for this DIFFERENTIAL HOME MANAGER breath) procedure are in Fatigue the results section. VITAMIN D DEFICIENCY Routine 06/11/2014 9:05 AM Vitamin D R esults for this SCREENING HOME MANAGER deficiency disease procedure are in the results section. COMPREHENSIVE Routine 06/11/2014 9:05 AM SOB (shortness of Res ults for this METABOLIC PANEL HOME MANAGER breath) procedure are in Fatigue the results Lower extremity section. edema EKG 12-LEAD COMPLETE Routine 06/11/2014 SOB (shortness of Re sults for this W/READ - CLINICS breath) procedure a re in the results section. documented in this encounter Results NM Lexiscan stress test (06/25/2014 1:06 PM HOME MANAGER) Anatomical Region Laterality Modality Chest Nuclear Medicine Specimen (Source) Anatomical Location Collection Method / Collectio n Time Received Time / Laterality Volume Narrative 06/26/2014 10:06 AM HOME MANAGER GATED MYOCARDIAL PERFUSION SCINTIGRAPHY WITH INTRAVENOUS PHARMACOLOGIC [...] 3. Compared to the prior study from na . Procedure Pharmacologic stress testing was perform [...] absent. KATARINA BUNN MD Oli Thomas MD [facility] NM ORDERABLES (ABNORMAL) Vitamin D Deficiency (06/11/2014 9:05 AM HOME MANAGER) athologist Signature Vitamin D 21 (L) 30 - 75 [facility] ug/L [place] [facility] Comment: Season, race, dietary intake, and treatm ent affect the concentration of 64-dvqvxbe-Njsjzbz D. Values may decrea se during winter [...] specimen 06/11/2014 9:05 AM 015 9:07 (specimen) HOME MANAGER AM HOME MANAGER Oli Thomas MD LAB - BLOOD ORDERABLES Performing Organization Address City/State/ZIP Code Phon e Number [facility] [address] [place] [address] [facility] CBC with platelets differential (06/11/2014 9:05 AM HOME MANAGER) [facility] gist Method Time Signature WBC 4.8 4.0 - [facility] 11.0 CLINICS 10e9/L [facility] RBC Count 5.06 4.4 - 5.9 [facility] 10e12/L [facility] Hemoglobin 15.4 13.3 - [facility] 17.7 g/dL [facility] Hematocrit 46.8 40.0 - [facility] 53.0 % [facility] MCV 93 78 - 100 [facility] MCH 30.4 26.5 - [facility] 33.0 pg CLINICS [facility] MCHC 32.9 31.5 - [facility] 36.5 g/dL [facility] RDW 12.7 10.0 - [facility] 15.0 % [facility] Platelet Count 205 150 - 450 [facility] 10e9/L [facility] Diff Method Automated [place] Method [facility] % Neutrophils 55.7 % [place] [facility] % Lymphocytes 32.6 % [place] [facility] % Monocytes 9.8 % [facility] % Eosinophils 1.5 % [facility] % Basophils 0.4 % [facility] Absolute 2.7 1.6 - 8.3 [facility] Neutrophil 10e9/L [facility] Absolute 1.6 0.8 - 5.3 [facility] Lymphocytes 10e9/L [facility] Absolute 0.5 0.0 - 1.3 [facility] Monocytes 10e9/L [facility] Absolute 0.1 0.0 - 0.7 [facility] Eosinophils 10e9/L [facility] Absolute 0.0 0.0 - 0.2 [facility] Basophils 10e9/L [facility] Specimen Anatomical Collection Method Collection Time Receive d Time (Source) Location / / Volume Laterality Blood specimen 06/11/2014 9:05 AM 015 9:07 (specimen) HOME MANAGER AM HOME MANAGER Oli Thomas MD LAB - BLOOD ORDERABLES Performing Organization Address City/State/ZIP Code Phon e Number [facility] [address] [place] [address] (ABNORMAL) Comprehensive metabolic panel (06/11/2014 9:05 AM HOME MANAGER) Analysis Performed At Path logist Time Signature Sodium 139 133 - 144 [facility] mmol/L [facility] Potassium 4.7 3.4 - 5.3 [place] mmol/L [facility] Chloride 104 94 - 109 [place] mmol/L [facility] Carbon Dioxide 31 20 - 32 [place] mmol/L [facility] Anion Gap 4 3 - 14 [place] mmol/L [facility] Glucose 102 (H) 70 - 99 [place] mg/dL [facility] Comment: Effective 12/18/2013, the reference range for this assay has changed to reflect new instrumentation/methodology. Urea Nitrogen 21 7 - 30 mg/dL [facility] Comment: Effective 12/18/2013, the reference range for this assay has changed to reflect new instrumentation/methodology. Creatinine 0.82 0.66 - 1.25 [facility] mg/dL [facility] GFR Estimate >90 >60 mL/min/1.7m2 [place] C [facility] Non GFR Calc [facility] GFR Estimate If Black >90 >60 mL/min/1.7m2 [facility] GFR Calc [facility] Calcium 9.1 8.5 - 10.1 mg/dL [facility] Comment: Effective 12/18/2013, the reference range for this assay has changed to reflect new instrumentation/methodology. Bilirubin Total 0.6 0.2 - 1.3 mg/dL [facility] Albumin 4.1 3.4 - 5.0 g/dL [facility] S [facility] Protein Total 7.5 6.8 - 8.8 g/dL [place] CL INICS [facility] Alkaline Phosphatase 106 40 - 150 U/L [facility] ALT 20 0 - 70 U/L [facility] AST 37 0 - 45 U/L [facility] Specimen Anatomical Collection Method Collection Time Receive d Time (Source) Location / / Volume Laterality Blood specimen 06/11/2014 9:05 AM 015 9:07 (specimen) HOME MANAGER AM HOME MANAGER Oli Thomas MD LAB - BLOOD ORDERABLES Performing Organization Address City/State/ZIP Code Phon e Number [facility] [address] [place] [address] XR Chest 2 Views (06/11/2014 8:52 AM HOME MANAGER) Anatomical Region Laterality Modality Chest Computed Radiography Specimen (Source) Anatomical Location Collection Method / Collectio n Time Received Time / Laterality Volume Impressions 06/11/2014 9:24 AM HOME MANAGER IMPRESSION: ??Negative. CYNTHIA PACE MD Narrative 06/11/2014 9:24 AM HOME MANAGER XR CHEST 2 VW ??06/11/2014 8:52 AM [...] breath documented in this encounter Care Teams Repair Armature Winder Relationship Specialty Start Date End Date Oli Thomas MD PCP - General Internal Medicine 06/11/14 12/16/20 documented as of this encounter
--- OUTSIDE RECORDS SUMMARY | 2022-04-21 03:50 | XMS_ITS | Encounter Summary ---
:1955 Author Organization [facility] Address [address] [place] [address]. [place] [address] Care Team Providers Name Role Phone Lurdes Thomas MD Primary Care Provider Reason for Visit Reason Onset Date Comments Medication Request 10/24/2011 robaxin Encounter Details Date Type Department Care Team Description 10/24/2011 Telephone [facility] Eag Lurdes Rojas Medication Request 1440 [facility] MD [place] (robaxin) [place] [address] [facility] [phone] [address] (Wo rk) Social History Tobacco Use Types Packs/Day Years Used Date Smoking Tobacco: Never Smokeless Tobacco: Never Alcohol Use Standard Drinks/Week Comments Yes 0 (1 standard drink = 0.6 oz pure alcoho l) not often Sex Assigned at Date Recorded Male 08/05/2020 2:57 PM CDT documented as of this encounter Miscellaneous Notes Telephone Encounter - Cindy Sal - 10/24/2011 8:36 AM CDT Strained muscle in neck doing a work out. He is asking for the same muscle relaxant as he had in 07/03 for back prob. Looks like he has a refill of the robaxin from Jun. and didn't think he filled it twice. will check in with the pharmacy and call back if another refill needed. Cindy Doron, RN documented in this encounter Plan of Treatment Not on filedocumented as of this encounter Visit Diagnoses Not on filedocumented in this encounter Care Teams Waste Recycler Relationship Specialty Start Date End Date Lurdes Thomas MD PCP - General Internal Medicine 04/12/10 04/03/13 documented as of this encounter
--- OUTSIDE RECORDS SUMMARY | 2022-04-21 03:50 | XMS_ITS | Encounter Summary ---
:1955 Author Organization [facility] Address [address] [place] [address]. [place] [address] Care Team Providers Name Role Phone Lurdes Thomas MD Primary Care Provider [phone] Reason for Visit Reason Onset Date Comments Lab Result Notice 07/28/2011 Encounter Details Date Type Department Care Team Description 07/28/2011 Telephone [facility] Eag an SerumLurdes Lab Result Notice 1440 [facility] [place] [address] [facility] [phone] [address] (Wo rk) Social History [...] Lurdes Laughlin MD - 07/28/2011 9:25 PM PROFESSOR OF BUSINESS ADMINISTRATION LDL not at goal, needs increased dose. Lurdes Laughlin MD Internal Medicine/Pediatrics ESSOR OF BUSINESS ADMINISTRATION documented in this encounter Plan of Treatment Not on filedocumented as of this encounter Visit Diagnoses Diagnosis Hyperlipidemia LDL goal < 130 - Primary Other and unspecified hyperlipidemia documented in this encounter Care Teams Design Supervisor Relationship Specialty Start Date End Date Martha, Lurdes Laughlin MD PCP - General Internal Medicine 04/12/10 04/03/13 documented as of this encounter
--- OUTSIDE RECORDS SUMMARY | 2022-04-21 03:50 | XMS_ITS | Encounter Summary ---
:1955 Author Organization [facility] Address [address] [place] [address] Care Team Providers Name Role Phone Lurdes Thomas MD Primary Care Provider [phone] Reason for Visit Reason Onset Date Comments Refill Request 04/11/2011 pravastatin Encounter Details Date Type Department Care Team Description 04/11/2011 Refill [facility] Eag Lurdes Rojas Refill Request 1440 [facility] MD [place] (pravastatin) [place] [address] [facility] [phone] [address] (Wo rk) Social History [...] labs letter sent. Received refill request from [facility] for pravastatin. Last Office Visit R/T [...] comparison chart: [facility] CoA REDUCTASE INHIBITORS (STATINS) LER OPERATOR AUTOMATIC documented in this encounter Plan of Treatment Not on filedocumented as of this encounter Visit Diagnoses Diagnosis Hyperlipidemia LDL goal < 130 - Primary Other and unspecified hyperlipidemia documented in this encounter Care Teams Natural Developer Relationship Specialty Start Date End Date Lurdes Thomas MD PCP - General Internal Medicine 04/12/10 04/03/13 documented as of this encounter
--- OUTSIDE RECORDS SUMMARY | 2022-04-21 03:50 | XMS_ITS | Encounter Summary ---
:1955 Author Organization [facility] Address [address] [place] [address] Care Team Providers Name Role Phone Lurdes Thomas MD Primary Care Provider [phone] Encounter Details Date Type Department Care Team Description 06/18/2014 Medical Correspondence [facility] Scan, GOALS AND CONCERNS [facility], Non-Provider Health Info Mgmt [facility] [address] [facility] [place] [address] Social History Tobacco Use Types [...] on filedocumented in this encounter Care Teams Applier Relationship Specialty Start Date End Date Lurdes Thomas MD PCP - General Internal Medicine 06/11/14 12/16/20 documented as of this encounter
--- OUTSIDE RECORDS SUMMARY | 2022-04-21 03:50 | XMS_ITS | Encounter Summary ---
:1955 Author Organization [facility] Address [address] [place] [address]. [place] [address] Care Team Providers Name Role Phone Lurdes Thomas MD Primary Care Provider [phone] Encounter Details Date Type Department Care Team Description 06/11/2014 Radiant Appointment [facility] Lurdes Thomas B (shortness of Uzair Laughlin MD breath) 1440 [facility] [address] [address] [place] [phone] [place] [address] Social History Tobacco Use Types [...] AM SOB (shortness of Results for this CLAIMS EXAMINER breath) procedure are i n the results section. documented in this encounter Results XR Chest 2 Views (06/11/2014 8:52 AM CLAIMS EXAMINER) Anatomical Region Laterality Modality Chest Computed Radiography Specimen (Source) Anatomical Location Collection Method / Collectio n Time Received Time / Laterality Volume Impressions 06/11/2014 9:24 AM CLAIMS EXAMINER IMPRESSION: ??Negative. CYNTHIA PACE MD Narrative 06/11/2014 9:24 AM CLAIMS EXAMINER XR CHEST 2 VW ??06/11/2014 8:52 AM HISTORY: ??Shortness of breath. COMPARISON: ??None. Procedure Note Cynthia Pcae MD - 5 XR CHEST 2 VW 06/11/2014 8:52 AM HISTORY: Shortness of breath. COMPARISON: None. IMPRESSION IMPRESSION: Negative. CYNTHIA PACE MD Lurdes Thomas MD IMG DIAGNOSTIC IMAGING ORDER HECTOR documented in this encounter Visit Diagnoses Diagnosis SOB (shortness of breath) Shortness of breath documented in this encounter Care Teams Drawing Box Tender Relationship Specialty Start Date End Date Lurdes Thomas MD PCP - General Internal Medicine 06/11/14 12/16/20 documented as of this encounter
--- OUTSIDE RECORDS SUMMARY | 2022-04-21 03:50 | XMS_ITS | Encounter Summary ---
:1955 Author Organization [facility] Address [address] [place] [address]. [place] [address] Care Team Providers Name Role Phone Lurdes Thomas MD Primary Care Provider [phone] Reason for Referral Referral not Required - Closed Specialty Diagnoses / Procedures Referred By Contact Refer red To Contact Diagnoses Cervical radicular pain Francisco Kitchen MD [employer] [facility] [address] [place] [address] 8967 [facility] [place] [address] ADMIN OFFICE [place] [address] Phone: [phone] Referral ID Status Reason Start Date Expiration Date Visits Requ ested Visits Authorized [id number] Closed 10/25/2011 04/22/2012 1 1 Reason for Visit Reason Comments Back Pain Encounter Details Date Type Department Care Team Description 10/25/2011 Office Visit [facility] Francisco Kitchen DDD (degene rative disc disease), cervical; Uzair Currie MD Cervical radicular pain [address] [facility] [place] [address] [facility] [phone] [place] [address] Social History Tobacco Use [...] Body Mass Index 24.6 07/27/2011 10:04 AM CONVEYOR SYSTEM DISPATCHER documented in this encounter Patient Instructions Patient [...] nos documented in this encounter Care Teams Gas Appliance Installer Relationship Specialty Start Date End Date Lurdes Thomas MD PCP - General Internal Medicine 04/12/10 04/03/13 documented as of this encounter
--- OUTSIDE RECORDS SUMMARY | 2022-04-21 03:50 | XMS_ITS | Encounter Summary ---
:1955 Author Organization [facility] Address [address] [place] [address]. [place] [address] Care Team Providers Name Role Phone Unavailable Primary Care Provider Unavailable Reason for Visit Reason Onset Date Comments Outreach 04/04/2013 Preventative health screening Encounter Details Date Type Department Care Team Description 04/04/2013 Telephone [facility] Lurdes Oh Outreach (Preventative 1440 [facility] MD [place] health screening) [place] [address] [facility] [phone] [address] (Wo rk) Social History Tobacco [...] Comments: Per patient, [place], [place]. Outreach Shell Machine Operator Charanjit Amaro RVISOR SPEECH documented in this encounter Plan of Treatment Not on filedocumented as of this encounter Visit Diagnoses Not on filedocumented in this encounter
--- OUTSIDE RECORDS SUMMARY | 2022-04-21 03:50 | XMS_ITS | Encounter Summary ---
:1955 Author Organization [facility] Address [address] [place] [address]. [place] [address] Care Team Providers Name Role Phone Lurdes Thomas MD Primary Care Provider [phone] Reason for Visit (Routine) - Closed Specialty Diagnoses / Procedures Referred By Contact Refer red To Contact Radiology / Radiology. Procedures Rh Nuclear Medicine [place] [facility] [address] [place] [address] Phone: Fax: Referral ID Status Reason Start Date Expiration Date Visits Requ ested Visits Authorized [id number] Closed 06/20/2014 06/20/2015 1 1 Encounter Details Date Type Department Care Team Description 06/25/2014 Hospital Encounter [facility] Lurdes Thomas MD [address] [facility] [address] 8675 [facility] [phone] [place], [place] [address] (Wo rk) Social History [...] Take 1 capsule 8 capsule 0 06/1208/01/2014 77929 UNIT (50,000 Units) by capsuleIndications: mouth every [...] (shortness of Resu lts for this LEXISCAN DOUGHNUT ICER breath) procedure are i n the results section. documented in this encounter Visit Diagnoses Not on filedocumented in this encounter Care Teams Piece Marker Small Arms Relationship Specialty Start Date End Date Lurdes Thomas MD PCP - General Internal Medicine 06/11/14 12/16/20 documented as of this encounter
--- OUTSIDE RECORDS SUMMARY | 2022-04-21 03:50 | XMS_ITS | Encounter Summary ---
:1955 Author Organization [facility] Address [address] [place] [address] Care Team Providers Name Role Phone Lurdes Thomas MD Primary Care Provider [phone] Reason for Visit Reason Comments Neurologic Problem DBS Consult Encounter Details Date Type Department Care Team Description 07/17[facility]2014 [facility] [address] [place], [place] [address] Parkinson's disease [facility] Rachel Cuadra APRN [facility] [address] [place], [place] [address] (H) (Primary Dx) [address] [address] Social History Tobacco Use Types [...] Comments Blood Pressure 124/81 07/17/2014 9:15 AM TENT ASSEMBLER Pulse 94 07/17/2014 9:15 AM TENT ASSEMBLER Temperature 36.6 ??C (97.8 ??F) 07/17/2014 9:15 AM TENT ASSEMBLER Respiratory Rate - - Oxygen Saturation 94% 07/17/2014 9:15 AM TENT ASSEMBLER Inhaled Oxygen Concentration - - Weight 99.1 kg (218 lb 6.4 oz) 07/17/2014 9:15 AM TENT ASSEMBLER Height 185.4 cm (6' 1) 07/17/2014 9:15 AM TENT ASSEMBLER Body Mass Index 28.81 07/17/2014 9:15 AM TENT ASSEMBLER documented in this encounter Patient Instructions Patient InstructionsSchmidRachel winn CNP - 07/17/2014 10:00 AM CST - [...] no sleep medications the night before surgery ASSEMBLER documented in this encounter Progress Notes Rachel Cuadra APRN CNP - 07/17/2014 9:22 AM CST [facility] Consult Note CC: Tremors and legs are lockingup Primary care Provider: Lurdes Thomas Referring provider: Dr. Maria Esther Phan HPI: Andrew Pang is a 59 year old male with a history of Parkinsons disease. He was diagnosed in August of 2007. He has been treating at the [facility] as well as Dr. Phan. [...] up at night. 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 He was [...] Outpatient Prescriptions Medication ??? vitamin D (ERGOCALCIFEROL) 53119 UNIT capsule ??? rotigotine (NEUPRO) 8 MG/24HR [...] of Parkinson's disease. He was referred here by[facility] for DBS therapy. The pt [...] agreement with recommendations and plan. Rachel Cuadra CNP [facility] [address] [place] [address] Pager [phone] Jordana Kline - 07/17/2014 9:18 AM CST [...] a DBS consult(Parkinsons) - referred by Dr. Phan([facility]) 5 nursing intake time Jordana Kline CMA Discharge plan: Patient given After Visit Summary. He will be scheduled for Bilateral DBS 2 nursing discharge time Jordana Kline CMA signature ASSEMBLER documented in this encounter Plan of [...] abnormality. FAMILIA GUILLERMO MD Rachel Cuadra APRN HOIST MECHANIC IMG CT ORDERABLES MR Brain w/o & w [...] COMPARISON: Diagnostic brain MRI from [facility] 05/26/2014. FINDINGS: The ventricles are [...] COMPARISON: Diagnostic brain MRI from [facility] 05/26/2014. FINDINGS: The ventricles are normal in s ize. There is no midline shift. There are no extra-axial fluid co llections. There is no evidence for intracranial hemorrhage. IMPRESSION IMPRESSION: Treatment planning brain MRI images with no evidence for acute intracranial pathology. BETTY CLOUD MD Rachel Cuadra LOAN INTERVIEWER HOIST MECHANIC IMG MRI ORDERABLES documented in this encounter Visit Diagnoses Diagnosis Parkinson's disease (H) - Primary Paralysis agitans Parkinson's disease (H) Paralysis agitans Parkinson's disease (H) Paralysis agitans documented in this encounter Care Teams Central Scheduler Relationship Specialty Start Date End Date Lurdes Thomas MD PCP - General Internal Medicine 06/11/14 12/16/20 documented as of this encounter
--- OUTSIDE RECORDS SUMMARY | 2022-04-21 03:50 | XMS_ITS | Encounter Summary ---
:1955 Author Organization [facility] Address [address] [place] [address]. [place] [address] Care Team Providers Name Role Phone Lurdes Thomas MD Primary Care Provider [phone] Reason for Referral Consultation - Closed Specialty Diagnoses / Procedures Referred By Contact Refer red To Contact Diagnoses Dyspnea on exertion Lurdes Thomas [facility] [address] [place], [place] [address] [facility] [address] [place], [place] Referral ID Status Reason Start Date Expiration Date Visits Requ ested Visits Authorized [id number] Closed 07/10/2014 01/06/2015 1 1 ER MAKER Encounter Details Date Type Department Care Team Description 07/10/2014 Orders Only [facility] Lurdes Oh Dyspnea on exertion 1440 Demian Laughlin MD (Primary Dx) [place] [address] [facility] [phone] [place] [address] [place] [address] 551 25 Social History Tobacco Use Types Packs/Day Years Used Date Smoking Tobacco: Never Smokeless Tobacco: Never Alcohol Use Standard Drinks/Week Comments Yes 0 (1 standard drink = 0.6 oz pure alcoho l) not often Sex Assigned at Date Recorded Male 08/05/2020 2:57 PM CDT documented as of this encounter Plan of Treatment Scheduled Referrals Name Type Priority Associated Diagnoses Order S chedule PULMONARY MEDICINE Referral Routine Dyspnea on exertion Or dered: 07/10/2014 REFERRAL documented as of this encounter Visit Diagnoses Diagnosis Dyspnea on exertion - Primary Other dyspnea and respiratory abnormalit y documented in this encounter Care Teams Armor Reconnaissance Vehicle Crewman Relationship Specialty Start Date End Date Lurdes Thomas MD PCP - General Internal Medicine 06/11/14 12/16/20 documented as of this encounter
--- OUTSIDE RECORDS SUMMARY | 2022-04-21 03:50 | XMS_ITS | Encounter Summary ---
:1955 Author Organization [facility] Address [address] [place] [address] Care Team Providers Name Role Phone Lurdes Thomas MD Primary Care Provider [phone] Reason for Visit (Routine) - Closed Specialty Diagnoses / Procedures Referred By Contact Refer red To Contact Cardiology Procedures [facility] Electrocardiology EKG STRESS NM LEXISCAN [address] [place], [place] [address] Phone: Referral ID Status Reason Start Date Expiration Date Visits Requ ested Visits Authorized [id number] Closed 06/19/2014 06/19/2015 1 1 Encounter Details Date Type Department Care Team Description 06/25/2014 Hospital Encounter [facility] Lurdes Thomas SOB (shortness of Electrocardiolgy MD [place] breath) [address] [facility] [place] [place] [address] [place] [address] [place] [address] Social History Tobacco Use Types [...] Take 1 capsule 8 capsule 0 06/1208/01/2014 84041 UNIT (50,000 Units) by capsuleIndications: mouth every [...] documented as of this encounter Progress Notes Lori Segura RN - 06/25/2014 11:30 AM CST Patient's lung sounds are clear. No adverse reactions to catarino injection. Lori Segura 3D SPECIALIST documented in this encounter Plan of Treatment Not on filedocumented as of this encounter Procedures Procedure Name Priority Date/Time Associated Diagnosis Comme nts NM MPI WITH Routine 06/25/2014 1:06 PM SOB (shortness of Resu lts for this LEXISCAN 3D SPECIALIST breath) procedure are i n the results section. documented in this encounter Results NM Lexiscan stress test (06/25/2014 1:06 PM 3D SPECIALIST) Anatomical Region Laterality Modality Chest Nuclear Medicine Specimen (Source) Anatomical Location Collection Method / Collectio n Time Received Time / Laterality Volume Narrative 06/26/2014 10:06 AM 3D SPECIALIST GATED MYOCARDIAL PERFUSION SCINTIGRAPHY WITH INTRAVENOUS PHARMACOLOGIC [...] absent. ALAN BUNN MD Lurdes Thomas MD IM NM ORDERABLES documented in this encounter Visit Diagnoses Diagnosis SOB (shortness of breath) Shortness of breath documented in this encounter Administered Medications Inactive Administered Medications - up to 3 most recent administrations Medication Order MAR Action Action Date Dose Rate Site regadenoson (LEXISCAN) 0.4 MG/5ML Given 06/25/2014 11:30 AM 3D SPECIALIST injection Starting on Mon06/25/14 at 1148, For 1 dose, LORI SEGURA: cabinet override documented in this encounter Care Teams Duct Maker Relationship Specialty Start Date End Date Lurdes Thomas MD PCP - General Internal Medicine 06/11/14 12/16/20 documented as of this encounter
--- OUTSIDE RECORDS SUMMARY | 2022-04-21 03:50 | XMS_ITS | Encounter Summary ---
:1955 Author Organization [facility] Address [address] [place] [address]. [place] [address] Care Team Providers Name Role Phone Lurdes Thomas MD Primary Care Provider [phone] Reason for Visit Reason Onset Date Comments Refill Request 06/08/2012 pravastatin Encounter Details Date Type Department Care Team Description 06/08/2012 Refill [facility] Eag Lurdes Rojas Refill Request 1440 [facility] MD [place] (pravastatin) [place] [address] [facility] [phone] [address] (Wo rk) Social History [...] supply. Letter mailed to schedule appointment. Jeannine Waldron, RN ADMINISTRATOR Telephone Encounter - Jeannine Waldron - 06/08/2012 1:33 PM CST Med requested: pravastatin Last office visit: 07/27/11 BP Readings from Last 1 Encounters: 10/25/11 104/66 Last pertinent lab: CHOL 236 07/27/2011 HDL 60 07/27/2011 LDL 152 07/27/2011 TRIG 121 07/27/2011 CHOLHDLRATIO 3.9 07/27/2011 AST 35 07/27/2011 ALT 20 07/27/2011 Jeannine Waldron RN ADMINISTRATOR documented in this encounter Plan of Treatment Not on filedocumented as of this encounter Visit Diagnoses Diagnosis Hyperlipidemia LDL goal < 130 - Primary Other and unspecified hyperlipidemia documented in this encounter Care Teams Hvac Sales Representative Relationship Specialty Start Date End Date Martha, Lurdes Laughlin MD PCP - General Internal Medicine 04/12/10 04/03/13 documented as of this encounter
--- OUTSIDE RECORDS SUMMARY | 2022-04-21 03:50 | XMS_ITS | Encounter Summary ---
:1955 Author Organization [facility] Address [address] [place] [address]. [place] [address] Care Team Providers Name Role Phone Lurdes Thomas MD Primary Care Provider [phone] Reason for Visit Reason Onset Date Comments Back Pain 07/11/2011 3 day follow up Encounter Details Date Type Department Care Team Description 07/11/2011 Refill [facility] Eag Lurdes Rojas Back Pain (3 day follow 1440 [facility] MD [place] up) [place] [address] [facility] [phone] [address] (Wo rk) Social History Tobacco Use Types Packs/Day Years Used Date Smoking Tobacco: Never Smokeless Tobacco: Never Alcohol Use Standard Drinks/Week Comments Yes 0 (1 standard drink = 0.6 oz pure alcoho l) not often Sex Assigned at Date Recorded Male 08/05/2020 2:57 PM CDT documented as of this encounter Patient Instructions Patient InstructionsBlanca Brandt Stefan - 07/11/2011 10:29 AM CST Images from [...] to correct posture; stop aggravating activities. ?? Hmlc-sic-yzjtfln pain medications for short term symptom control. [...] provider immediately. Medications for Pain Relief Recommended gjsy-aal-pzekxkq non-steroidal anti-inflammatories: Ibuprofen (Advil, Motrin) 600 mg. [...] this several times a day. Developed by [employer] Published by [employer] Last modified: 2008-06-29 Last reviewed: 2007-11-26 This content is reviewed periodically and is subject to change as new health information becomes available. The information is intended to inform and educate and is not a replacement for medical evaluation, advice, diagnosis or treatment by a healthcare professional. Adult Health Advisor 2008.1 Index Adult Health Advisor 2008.1 Credits ?? 2009 [facility] and/or its affiliates. All Rights Reserved. INSULATOR RUBBER documented in this encounter Miscellaneous Notes Telephone [...] of plan and is agreeable. Blanca Brandt INSULATOR RUBBER Telephone Encounter - Blanca Brandt - 07/11/2011 10:18 AM CST Called and spoke with patient and informed of message from Dr. Laughlin below. Mailed back exercises.Patient is wanting to hold off on physical therapy at this time. Kristina Brandt RN INSULATOR RUBBER Telephone Encounter - Nathalia Galvan - 07/11/2011 9:50 AM CST Called and LM for pt with message below. Nathalia Galvan MA INSULATOR RUBBER Telephone Encounter - Lurdes Laughlin MD - 07/11/2011 9:08 AM TANK INSULATOR RUBBER Ibuprofen or naproxen are ok. Flexeril has potential interaction with azilect. I changed muscle relaxant to methocarbamol (robaxin) and sent to pharmacy. This also may make him sleepy. Please let patient know. Thanks, Lurdes Laughlin MD Internal Medicine/Pediatrics INSULATOR RUBBER Telephone Encounter - Blanca Brandt - 07/11/2011 8:32 AM CST Images from the original note were not included. Patient calls stating he was bending over to [employer] box yesterday morning and had back pain. He is leaving for [place] for work this afternoon. Wants to make [...] to correct posture; stop aggravating activities. ?? Plke-sph-chwpppl pain medications for short term symptom control. [...] provider immediately. Medications for Pain Relief Recommended rldi-teq-adgjhye non-steroidal anti-inflammatories: Ibuprofen (Advil, Motrin) 600 mg. [...] this several times a day. Developed by [employer] Published by [employer] Last modified: 2008-06-29 Last reviewed: 2007-11-26 This content is reviewed periodically and is subject to change as new health information becomes available. The information is intended to inform and educate and is not a replacement for medical evaluation, advice, diagnosis or treatment by a healthcare professional. Adult Health Advisor 2008.1 Index Adult Health Advisor 2008.1 Credits ?? 2009 [facility] and/or its affiliates. All Rights Reserved. INSULATOR RUBBER documented in this encounter Plan of Treatment Not on filedocumented as of this encounter Visit Diagnoses Diagnosis Back muscle spasm - Primary Other symptoms referable to back documented in this encounter Care Teams Frame Stripper And Crusher Relationship Specialty Start Date End Date Lurdes Thomas MD PCP - General Internal Medicine 04/12/10 04/03/13 documented as of this encounter
--- OUTSIDE RECORDS SUMMARY | 2022-04-21 03:50 | XMS_ITS | Encounter Summary ---
:1955 Author Organization [facility] Address [address] [place] [address]. [place] [address] Care Team Providers Name Role Phone Lurdes Thomas MD Primary Care Provider Reason for Visit Reason Onset Date Comments Chronic Care Conference Provider Overview 12/29/2010 Encounter Details Date Type Department Care Team Description 12/29/2010 Telephone [facility] Lurdes Oh Chronic Care Conference 1440 [facility] MD [place] Provider Overview [place] [address] [facility] [phone] [address] (Wo rk) Social History Tobacco Use Types Packs/Day Years Used Date Smoking Tobacco: Never Alcohol Use Standard Drinks/Week Comments [...] on filedocumented in this encounter Care Teams Secondary School Teacher Librarian Relationship Specialty Start Date End Date Lurdes Thomas MD PCP - General Internal Medicine 04/12/10 04/03/13 documented as of this encounter
--- OUTSIDE RECORDS SUMMARY | 2022-04-21 03:50 | XMS_ITS | Encounter Summary ---
:1955 Author Organization [facility] Address [address] [place] [address]. [place] [address] Care Team Providers Name Role Phone Unavailable Primary Care Provider Unavailable Reason for Visit Reason Onset Date Comments Refill Request 11/06/2013 Pravachol Encounter Details Date Type Department Care Team Description 11/06/[address] [facility] Eag an Serum, Lurdes Refill Request 1440 [facility] MD [place] (Pravachol ) [place] [address] [facility] [phone] [address] (Wo rk) Social History [...] of 03/2013-Per patient, he has swtiched to [facility] due to insurance change, no longer seen through the [facility] network. D. Major RN Telephone Encounter - Sole Cates [...]
--- OUTSIDE RECORDS SUMMARY | 2022-04-21 03:50 | XMS_ITS | Encounter Summary ---
:1955 Author Organization [facility] Address [address] [place] [address]. [place] [address] Care Team Providers Name Role Phone Lurdes Thomas MD Primary Care Provider [phone] Reason for Visit Reason Onset Date Comments Pt. Information/instruction 10/26/2011 Physical the rapy Encounter Details Date Type Department Care Team Description 10/26/2011 Telephone [facility] Eag Lurdes Rojas Pt. 1440 [facility] MD [place] Information/instruction [place] [address] [facility] (Physical therapy) [phone] [address] (Wo rk) Social History Tobacco Use [...] took him to a chiropractor here in [place] who does the ultrasound treatments. He got [...] on filedocumented in this encounter Care Teams Weblogic Developer Relationship Specialty Start Date End Date Lurdes Thomas MD PCP - General Internal Medicine 04/12/10 04/03/13 documented as of this encounter
--- OUTSIDE RECORDS SUMMARY | 2022-04-21 03:50 | XMS_ITS | Encounter Summary ---
:1955 Author Organization [facility] Address [address] [facility] [place] [address] Care Team Providers Name Role Phone Lurdes Thomas MD Primary Care Provider [phone] Encounter Details Date Type Department Care Team Description 07/08/2014 Medical Correspondence [facility], Non-Provider NEUROLOG Y-ORDER-2/ Health Info [facility] 11/2014 [facility] [address] [place] [address] Social History Tobacco Use [...] filedocumented in this encounter Care Teams Field Party Manager Relationship Specialty Start Date End Date Lurdes Thomas MD PCP - General Internal Medicine 06/11/14 12/16/20 documented as of this encounter
--- OUTSIDE RECORDS SUMMARY | 2022-04-21 03:50 | XMS_ITS | Encounter Summary ---
:1955 Author Organization [facility] Address [address] [place] [address]. [place] [address] Care Team Providers Name Role Phone Lurdes Thomas MD Primary Care Provider [phone] Reason for Visit (Routine) - Closed Specialty Diagnoses / Procedures Referred By Contact Refer red To Contact Radiology / Radiology. Procedures Rh Nuclear Medicine NM MPI WITH LEXISCAN [address] [place] [address] Phone: Fax: Referral ID Status Reason Start Date Expiration Date Visits Requ ested Visits Authorized [id number] Closed 06/20/2014 12/17/2014 1 1 Encounter Details Date Type Department Care Team Description 06/25/2014 Hospital Encounter [facility] Lurdes Thomas MD [address] [facility] [place] [address] 8675 [facility] [phone] [place], [place] [address] (Wo rk) Social History [...] Take 1 capsule 8 capsule 0 06/1208/01/2014 35945 UNIT (50,000 Units) by capsuleIndications: mouth every [...] (shortness of Resu lts for this LEXISCAN ROADSIDE MECHANIC breath) procedure are i n the results section. documented in this encounter Visit Diagnoses Not on filedocumented in this encounter Administered Medications Inactive Administered Medications - up to 3 most recent administrations Medication Order MAR Action Action Date Dose Rate Site technetium Tc 99m tetrofosmin 2UD Given 06/25/2014 1:04 PM ROADSIDE MECHANIC 3 0 mCi study (MYOVIEW) radioisotope injection 3-42 mCi 3-42 mCi, Intravenous, EVERY 2 HOURS, First dose on Mon06/25/14 at 1015, For 2 doses, Radioisotope, supplied by and administered by Nuclear Medicine. *HW* Given 06/25/2014 10:09 AM ROADSIDE MECHANIC 10.4 mCi documented in this encounter Care Teams Compliance Project Manager Relationship Specialty Start Date End Date Lurdes Thomas MD PCP - General Internal Medicine 06/11/14 12/16/20 documented as of this encounter
--- OUTSIDE RECORDS SUMMARY | 2022-04-21 03:50 | XMS_ITS | Encounter Summary ---
:1955 Author Organization [facility] Address [address] [place] [address]. [place] [address] Care Team Providers Name Role Phone Lurdes Thomas MD Primary Care Provider [phone] Reason for Visit (Routine) - Closed Specialty Diagnoses / Procedures Referred By Contact Refer red To Contact Cardiology Diagnoses 06/16-reminder ltr sent Rh Echo cc Procedures [facility]TE [address] [place] [address] [place], [place] [address] Phone: Fax: Referral ID Status Reason Start Date Expiration Date Visits Requ ested Visits Authorized [id number] Closed 06/17/2014 06/17/2015 1 1 Encounter Details Date Type Department Care Team Description 06/25/2014 [facility] MD [place] breath) Heart Care [facility] [address] [facility] [address] [place], [place] [address] [address] [place], [place] [phone] [address] Social History Tobacco Use Types Packs/Day [...] Take 1 capsule 8 capsule 0 06/1208/01/2014 94958 UNIT (50,000 Units) by capsuleIndications: mouth every [...] (shortness o f Results for this OPTISON SCHOOL RESOURCE OFFICER breath) procedure are i n the results section. documented in this encounter Results ECHO COMPLETE WITH OPTISON (06/25/2014 2:19 PM SCHOOL RESOURCE OFFICER) Anatomical Region Laterality Modality Echocardiography Specimen (Source) Anatomical Collection Method Collection Time Re ceived Time Location / / Volume Laterality 06/25/2014 1:34 PM SCHOOL RESOURCE OFFICER Narrative 06/25/2014 4:24 PM SCHOOL RESOURCE OFFICER Interpretation Summary Left ventricular systolic function is [...] to 2mL with Given 06/25/2014 2:12 PM SCHOOL RESOURCE OFFICER 2 mLs saline (OPTISON) diluted injection 2 mL 2 mL, Intravenous, ONCE, On Mon06/25/14 at 1415, For 1 dose, 3mL Optison / 6mL Saline solution documented in this encounter Care Teams Surveyor Oil Well Directional Relationship Specialty Start Date End Date Lurdes Thomas MD PCP - General Internal Medicine 06/11/14 12/16/20 documented as of this encounter
--- OUTSIDE RECORDS SUMMARY | 2022-04-21 03:50 | XMS_ITS | Encounter Summary ---
:1955 Author Organization [facility] Address [address] [place] [address]. [place] [address] Care Team Providers Name Role Phone Lurdes Thomas MD Primary Care Provider [phone] Encounter Details Date Type Department Care Team Description 03/15/2011 Hospital Encounter [facility] Lurdes Thomas of [facility] MD [place] extremity, right [address] [facility] [address] [place] [address] [place] [address] Social History Tobacco Use Types [...] limb documented in this encounter Care Teams Cognos Relationship Specialty Start Date End Date Lurdes Thomas MD PCP - General Internal Medicine 04/12/10 04/03/13 documented as of this encounter
--- OUTSIDE RECORDS SUMMARY | 2022-04-21 03:50 | XMS_ITS | Encounter Summary ---
:1955 Author Organization [facility] Address [address] [place] [address]. [place] [address] Care Team Providers Name Role Phone Lurdes Thomas MD Primary Care Provider [phone] Reason for Visit Reason Onset Date Comments Back Pain 07/20/2011 6 wk follow up Encounter Details Date Type Department Care Team Description 07/20/2011 Telephone [facility] Lurdes Oh Back Pain (6 wk follow 1440 [facility] MD [place] up) [place] [address] [facility] [phone] [address] (Wo rk) Social History [...] for patient to return call or send Peeriot message on how he is doing with backpain. Kristina Brandt RN Telephone Encounter - Major, Maki - 08/22/2011 3:28 PM CDT LOW BACK PAIN nursing triage 6 week follow-up: Maki Major 09/01/11-BERNARDOTCChristi Major RN Telephone Encounter - Blanac Brandt - 07/20/2011 10:38 AM CST Please post pone and call patient for 6wk follow up of low back pain on or around 08/22/11. Kristina Brandt RN COORDINATOR documented in this encounter Plan of Treatment Not on filedocumented as of this encounter Visit Diagnoses Not on filedocumented in this encounter Care Teams Post Acute Care Nurse Practitioner Relationship Specialty Start Date End Date Lurdes Thomas MD PCP - General Internal Medicine 04/12/10 04/03/13 documented as of this encounter
--- OUTSIDE RECORDS SUMMARY | 2022-04-21 03:50 | XMS_ITS | Encounter Summary ---
:1955 Author Organization [facility] Address [address] [place] [address]. [place] [address] Care Team Providers Name Role Phone Lurdes Thomas MD Primary Care Provider [phone] Reason for Visit (Routine) - Closed Specialty Diagnoses / Procedures Referred By Contact Refer red To Contact Respiratory Therapy Diagnoses Hgb 15.4 drawn on 06/11/14 Rh Respiratory Ther Procedures PULMONARY FUNCTION TEST [address] [place] [address] Phone: Referral ID Status Reason Start Date Expiration Date Visits Requ ested Visits Authorized [id number] Closed 07/04/2014 07/04/2015 1 1 Encounter Details Date Type Department Care Team Description 07/08/2014 Hospital Encounter [facility] Lurdes Rios rkinson disease (H); Tere Laughlin MD SOB (shortness of breath) Therapy [facility] [address] [place], [place] [address] [place] [address] [phone] [place] [address] Social History Tobacco Use Types [...] Take 1 capsule 8 capsule 0 06/1208/01/2014 49250 UNIT (50,000 Units) by capsuleIndications: mouth every [...] 06/11/14. July 08, 2014.12:39 PM Shemar Hoang IVING AND PROCESSING SUPERVISOR documented in this encounter Procedure Notes Juice Chanel MD - 07/09/2014 1:16 PM CSTAssociated Order(s): PULMONARY FUNCTION TEST Please see medical chart for graphs and statistics related to this report. REFERRING PHYSICIAN: Deidre Pang NUCLEAR PHARMACIST: Shemar Hoang DIAGNOSIS: SOB, Parkinson's disease HEIGHT: [...] JUICE CHANEL MD MT: Name: DEIDRE PANG MRN: [id number] Account: [id number] : 1955 Procedure Date: 07/08/2014 Document: [id number] cc: Lurdes Thomas MD documented in this encounter Plan of Treatment Pending Results Name Type Priority Associated Diagnoses Date/Ti me PULMONARY FUNCTION TEST PFT Routine Parkinso n disease (H) 07/08/2014 11:58 AM RECEIVING AND PROCESSING SUPERVISOR PROCEDURE SOB (shortness of breath) documented as of this encounter Procedures Procedure Name Priority Date/Time Associated Diagnosis Comme nts PFT GENERAL LAB 07/28/2014 1:58 PM Result s for this TESTING CDT procedure are i n the results section. PFT GENERAL LAB Routine 07/08/2014 11:58 AM Parkinson disease TESTING RECEIVING AND PROCESSING SUPERVISOR (H) SOB (shortness of breath) PULMONARY FUNCTION 07/08/2014 12:00 AM TEST - HIM SCAN RECEIVING AND PROCESSING SUPERVISOR documented in this encounter Results PULMONARY FUNCTION TEST (07/28/2014 1:58 PM CDT) Transcriptions Juice Chanel MD - 07/09/2014 1:16 PM CST Please see medical chart for graphs and statistics related to this report. REFERRING PHYSICIAN: Deidre Pang NUCLEAR PHARMACIST: Shemar Hoang DIAGNOSIS: SOB, Parkinson's disease HEIGHT: [...] JUICE CHANEL MD MT: Name: DEIDRE PANG MRN: [id number] Account: [id number] : 1955 Procedure Date: 07/08/19 Document: [id number] cc: Lurdes Thomas MD Juice Chanel MD PFT ORDERABLES PULMONARY FUNCTION TEST - HIM SCAN (07/08/2014 12:00 AM RECEIVING AND PROCESSING SUPERVISOR) Specimen (Source) Anatomical Location Collection Method / Collectio n Time Received Time / Laterality Volume 07/08/2014 Narrative This result has an attachment that is no t available. Provider Scan PFT ORDERABLES documented in this encounter Visit Diagnoses Diagnosis Parkinson disease (H) Paralysis agitans SOB (shortness of breath) Shortness of breath documented in this encounter Care Teams Seo Executive Relationship Specialty Start Date End Date Lurdes Thomas MD PCP - General Internal Medicine 06/11/14 12/16/20 documented as of this encounter
--- OUTSIDE RECORDS SUMMARY | 2022-04-21 03:50 | XMS_ITS | Encounter Summary ---
:1955 Author Organization [place] Address [address] [place] [address]. [place] [address] Care Team Providers Name Role Phone Lurdes Thomas MD Primary Care Provider [phone] Reason for Visit (Routine) - Closed Specialty Diagnoses / Procedures Referred By Contact Refer red To Contact Radiology / Radiology. Procedures Nuclear Medicine [place] SCAN[address] [place] [address] Phone: Fax: Referral ID Status Reason Start Date Expiration Date Visits Requ ested Visits Authorized [id number] Closed 06/20/2014 12/17/2014 1 1 Encounter Details Date Type Department Care Team Description 06/25/2014 Hospital Encounter [facility] Lurdes Thomas MD [address] [facility] [phone] 8675 [facility] [phone] [place], [place] [address] (Wo rk) Social History [...] Take 1 capsule 8 capsule 0 06/1208/01/2014 65004 UNIT (50,000 Units) by capsuleIndications: mouth every [...] (shortness of Resu lts for this [employer] LAST TRIMMER breath) procedure are i n the results section. documented in this encounter Visit Diagnoses Not on filedocumented in this encounter Care Teams Dermatology Technician Relationship Specialty Start Date End Date Lurdes Thomas MD PCP - General Internal Medicine 06/11/14 12/16/20 documented as of this encounter
--- OUTSIDE RECORDS SUMMARY | 2022-04-21 03:50 | XMS_ITS | Encounter Summary ---
:1955 Author Organization [place] Address [address] [place] [address]. [place] [address] Care Team Providers Name Role Phone Lurdes Thomas MD Primary Care Provider [phone] Reason for Visit Reason Comments Edema right foot and ankle Encounter Details Date Type Department Care Team Description 03/15/[address] [facility] Lurdes Thomas Swelling of extremity, Uzair Laughlin MD right (Primary Dx) [address] [place] [address] [place] [phone] 8675 [place], [place] [address] Social History Tobacco Use [...] CDT Ultrasound of right leg at 4:15 [facility] [address] [place] [place] [address] Wait for results - will page me [...] about 2 weeks ago. Had traveled to [place] and [place] the week before. Only on right side. [...] lb 4.8 oz (88.587 kg) BMI 25.42 kg/h0Dnnvngtba Body mass index is 25.42 kg/(m^2) as calculated from the following: Height as of this encounter: 6' 1.5(1.867 m). Weight as of this encounter: 195 lb 4.8 oz(88.587 kg).. BP completed using cuff size: papo Galvan MA documented in this encounter Plan of Treatment Not on filedocumented as of this encounter Visit Diagnoses Diagnosis Swelling of extremity, right - Primary Swelling of limb documented in this encounter Care Teams Watch Crystal Grinder Relationship Specialty Start Date End Date Lurdes Thomas MD PCP - General Internal Medicine 04/12/10 04/03/13 documented as of this encounter
--- OUTSIDE RECORDS SUMMARY | 2022-04-21 03:50 | XMS_ITS | Encounter Summary ---
:1955 Author Organization [place] Address [address] [place] [address]. [place] [address] Care Team Providers Name Role Phone Lurdes Thomas MD Primary Care Provider [phone] Reason for Visit Reason Comments Refill Request lab draw Encounter Details Date Type Department Care Team Description 09/20/2012 Office Visit [facility] Lurdes Thomas Hyperlipi demia LDL goal < 130 (Primary Dx); Uzair Laughlin MD Parkinson disease (H); [address] [employer] Prediabetes; [place] [address] [place] Screening for diabetes mellitus; [phone] 8675 [facility] Screening for colon cancer [place], [place] [id number] Social History Tobacco Use Types Packs/Day Years [...] Body Mass Index 23.75 07/27/2011 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 OBJECTIVE: BP 112/62 [...] 09/20/2012 8:00 AM CDT >> ERROL WARREN [facility] September 20, 2012 8:08 AM Patient presents [...] athologist Signature Sodium 139 133 - 144 [place] mmol/L [facility] Potassium 4.6 3.4 - 5.3 [place] [facility] mmol/L [facility] Chloride 101 94 - 109 [place] mmol/L [facility] Carbon Dioxide 31 20 - 32 [place] [facility] mmol/L [facility] Anion Gap 7 6 - 17 [place] mmol/L [facility] Glucose 104 (H) 60 - 99 [facility] mg/dL [facility] Comment: Fasting specimen Urea Nitrogen 24 7 - 30 mg/dL [facility] N [facility] Creatinine 0.94 0.66 - 1.25 mg/dL [facility] [facility] GFR Estimate 83 >60 mL/min/1.7m2 [place] [facility] GFR Estimate If Black >90 >60 mL/min/1.7m2 [facility] Calcium 8.8 8.5 - 10.4 mg/dL [facility] N [facility] Bilirubin Total 1.0 0.2 - 1.3 mg/dL [facility] Albumin 4.1 3.3 - 4.9 g/dL [facility] Comment: Reference range changed on 01/21. Protein Total 7.0 6.8 - 8.8 g/dL [facility] Comment: As of 07, reference range reflects plasma specimen type. Alkaline Phosphatase 81 40 - 150 U/L [facility] ALT 17 0 - 70 U/L [facility] CL[facility] LAB AST 54 (H) 0 - 45 U/L [facility] LAB Specimen Anatomical Collection Method Collection Time Receive d Time (Source) Location / / Volume Laterality Blood specimen 09/20/2012 8:17 AM 013 8:22 (specimen) CDT AM CDT Lurdes Thomas MD LAB - BLOOD ORDERABLES Performing Organization Address City/State/ZIP Code Phon e Number [facility] [address] [place] [address] [facility] [address] [place] [address] Lipid panel reflex to direct LDL (09/20/2012 8:17 AM CDT) athologist Signature Cholesterol 178 0 - 200 [facility] mg/dL CLINIC LAB Comment: LDL Cholesterol is the primary guide to therapy. The NCEP recommends further evaluation of: patients with cholesterol greater than 200 mg/dL if additional risk facto rs are present, cholesterol greater than 240 mg/dL, triglycerides greater than 1 50 mg/dL, or HDL less than 40 mg/dL. Triglycerides 83 0 - 150 mg/dL [facility] HDL Cholesterol 66 40 - 110 mg/dL [facility] LDL Cholesterol Calculated 95 0 - 129 mg/dL [facility] Comment: LDL Cholesterol is the primary guide to therapy: LDL-cholesterol goal in high risk patients is <100 mg/dL and in very high risk patients is <70 mg/dL. VLDL-Cholesterol 17 0 - 30 mg/dL [facility] Cholesterol/HDL Ratio 2.7 0.0 - 5.0 [facility] Specimen Anatomical Collection Method Collection Time Receive d Time (Source) Location / / Volume Laterality Blood specimen 09/20/2012 8:17 AM 013 8:22 (specimen) CDT AM CDT Lurdes Thomas MD LAB - BLOOD ORDERABLES Performing Organization Address City/State/ZIP Code Phon e Number [facility] [address] [place] [address] [facility] [address] [place] [address] documented in this encounter Visit Diagnoses Diagnosis Hyperlipidemia LDL goal < 130 - Primary Other and unspecified hyperlipidemia Parkinson disease (H) Paralysis agitans Prediabetes Other abnormal glucose Screening for diabetes mellitus Screening for colon cancer Special screening for malignant neoplasm s, colon documented in this encounter Care Teams Business Systems Manager Relationship Specialty Start Date End Date Lurdes Thomas MD PCP - General Internal Medicine 04/12/10 04/03/13 documented as of this encounter
--- OUTSIDE RECORDS SUMMARY | 2022-04-21 03:51 | XMS_ITS | Encounter Summary ---
:1955 Author Organization [place] Address [address] [place] [address]. [place] [address] Care Team Providers Name Role Phone Lurdes Thomas MD Primary Care Provider [phone] Reason for Visit Reason Onset Date Comments Musculoskeletal Problem 07/13/2010 Muscle aches and weakness Encounter Details Date Type Department Care Team Description 07/13/2010 Telephone [facility] Lurdes Thomas Musculosk eletal Problem Uzair Laughlin MD (Muscle aches and 14[address] 60mo weakness) [place] [address] [place] [phone] [address] [place], [place] [address] Social History Tobacco Use Types Packs/Day Years Used Date Smoking Tobacco: Never Alcohol Use Standard Drinks/Week Comments Yes 0 (1 standard drink = 0.6 oz pure alcoho l) not often Sex Assigned at Date Recorded Male 08/05/2020 2:57 PM CDT documented as of this encounter Miscellaneous Notes Telephone Encounter - Lurdes Laughlin - 07/16/2010 12:46 PM LICENSE EXAMINER Called and discussed with patient. Previously on [...] be evaluated. Lurdes Laughlin MD Internal Medicine/Pediatrics NSE EXAMINER Telephone Encounter - Lurdes Laughlin - 07/15/2010 4:14 PM LICENSE EXAMINER Attempted again to call pt and at home and on cell. Left a message on cell. Asked pt to call or willtry back tomorrow. Lurdes Laughlin MD Internal Medicine/Pediatrics NSE EXAMINER Telephone Encounter - Lurdes Laughlin - 07/15/2010 12:41 PM LICENSE EXAMINER Attempted to call patient to follow-up. Left a message at home. Will call back later. Lurdes Laughlin MD Internal Medicine/Pediatrics NSE EXAMINER Telephone Encounter - Lurdes Laughlin - 07/13/2010 3:38 PM LICENSE EXAMINER Agree with the above. Ok for trial off simvastatin, but should also talk with Neurologist. II will call Andrew on . Thanks! Lurdes Laughlin MD Internal Medicine/Pediatrics NSE EXAMINER Telephone Encounter - Maki Major - 07/13/2010 2:15 PM CST , Natasha, is calling to report that pt has [...] be reached until . 's number is [phone]. Maame Major RN NSE EXAMINER documented in this encounter Plan of Treatment Not on filedocumented as of this encounter Visit Diagnoses Not on filedocumented in this encounter Care Teams Management Nurse Rn Relationship Specialty Start Date End Date Lurdes Thomas MD PCP - General Internal Medicine 04/12/10 04/03/13 documented as of this encounter
--- OUTSIDE RECORDS SUMMARY | 2022-04-21 03:51 | XMS_ITS | Encounter Summary ---
:1955 Author Organization [facility] Address [address], [place] [address] Care Team Providers Name Role Phone Samantha Stauffer MD Primary Care Provider [phone] Encounter Details Date Type Department Care Team Description 02/11/2022 Telephone [facility] Neuro[facility] Princess Phan, [facility] [address] [facility] [place] [address] [place] [address] [phone] (Wo rk) Social History Tobacco Use Types Packs/Day Years Used Date Smoking Tobacco: Never Smokeless Tobacco: Never Alcohol Use Standard Drinks/Week Comments Not Currently 0 (1 standard drink = 0.6 oz pure alcoho l) Sex Assigned at Date Recorded Not on file documented as of this encounter Nursing Notes Maria Esther Phan MD - 02/11/2022 12:33 PM CDT Called and discussed currnt medications in view of increased depression and repeat abdomminal surgery for lysis of adhesions. Cristhian Dueñas - 02/11/2022 10:[address] Mackey is calling to speak w/ Dr. Phan or his nurse regarding med adjustment for pt - please call Cristhian Dueñas 02/11/2022, 10:08 AM documented in this encounter Plan of Treatment Not on filedocumented as of this encounter Visit Diagnoses Not on filedocumented in this encounter Care Teams Legal Practice Manager Relationship Specialty Start Date End Date Samantha Stauffer MD PCP - General Family Practice 12/12/[address]1999 [place] [address] documented as of this encounter
--- OUTSIDE RECORDS SUMMARY | 2022-04-21 03:51 | XMS_ITS | Encounter Summary ---
:1955 Author Organization [place] Address [address] [place] [address]. [place] [address] Care Team Providers Name Role Phone Lurdes Thomas MD Primary Care Provider [phone] Reason for Visit Reason Onset Date Comments Results 10/20/2010 Encounter Details Date Type Department Care Team Description 10/20/2010 Telephone [facility] Lurdes Thomas, Results [address] [facility] [place] [address] [facility] [phone] [address]75 [place], [place] [address] (Wo rk) Social History Tobacco Use [...] hyperlipidemia documented in this encounter Care Teams Pipeline Superintendent Division Relationship Specialty Start Date End Date Serum, Lurdes Laughlin MD PCP - General Internal Medicine 04/12/10 04/03/13 documented as of this encounter
--- OUTSIDE RECORDS SUMMARY | 2022-04-21 03:51 | XMS_ITS | Clinical Summary ---
:1955 Author Organization [facility] [place] Address [address] [place] [address] Care Team Providers Name Role Phone Samantha Stauffer MD Primary Care Provider [phone] Source Comments You are receiving this document [...] for each transition of care or referral. [facility] [place] Allergies No known active allergies Medications Medication [...] Encounters Date Type Specialty Care Team Description 02/11/2022 Telephone Neurology Maria Esther Phan MD from Last 3 Months Immunizations Name [...] 2) 2006 Adult Preventive Visit 01/28/2015 01/28/2014 PSA Screening Discussion 01/28/2015 01/28/2014, 08/17/2009 Cholesterol 01/28/2019 01/28/2014, 08/17/2009 Pneumococcal 65+ Yrs (1 - 2021 PCV) Influenza (#1) 2022 03/11/2021, 03/11/2021, 05/05/2009, Additional history exists DTaP/Tdap/Td (4 - Tdap) 06/02/2027 06/02/2017, 05/22/2007, [...] this topic Medical Devices Implanted Type Area Vehicle Detailer Device Shelf Model / Identifier Expiration Serial / Date Lot [employer] - [id number] DEVICE Right: Medtronic - 2020 [id number] / Implanted: Qty: 1 on 12/12/2019 by Jorge L Kaiser MD at [facility] Neurological [id number] / NA Insurance Payer Benefit Plan / Subscriber ID Effective Dates Phone Addre ss Type Group MEDICARE MEDICARE PART [id number] 2018-Dong [phone] Medicare A t 27 BCBS BCBS OUT OF [id number] 2017-Ignacio [address] [address] [place] [address] [address] [place] [address] Andrew Pang Personal/Famil Self 1955 [address] [place] [address] Andrew Pang Personal/Famil Self 1955 [address] [place] [address] Advance Directives Latest Code Status on File Code Status Date Activated Date Inactivated Comments Full Code 12/12/2019 8:30 AM 12/12/2019 9:48 PM Care Teams Optical Advisor Relationship Specialty Start Date End Date Samantha Stauffer MD PCP - General Family Practice 12/12/191999 [place] [address]
--- OUTSIDE RECORDS SUMMARY | 2022-04-21 03:51 | XMS_ITS | Encounter Summary ---
:1955 Author Organization [employer] Address [address], [place] [address] Care Team Providers Name Role Phone Samantha Stauffer MD Primary Care Provider [phone] Encounter Details Date Type Department Care Team Description 07/14/2021 Telephone [employer] Neuro[facility] Princess Phan, [facility] [address] [facility] [address] [place] [address] [place] [address] [phone] (Wo rk) Social History Tobacco Use Types Packs/Day Years Used Date Smoking Tobacco: Never Smokeless Tobacco: Never Alcohol Use Standard Drinks/Week Comments Not Currently 0 (1 standard drink = 0.6 oz pure alcoho l) Sex Assigned at Date Recorded Not on file documented as of this encounter Nursing Notes Chloé eDnny N - 07/16/2021 4:45 PM CST RN called [...] verbalizes understanding. Chloé Denny 07/16/2021, 5:09 PM ANCE KEEPER Doris Slaughter RN - 07/16/2021 4:43 PM CST RN looked at RX, PA approval through 10/2021. Doris Slaughter RN 07/16/2021, 4:44 PM ANCE KEEPER Karin Dill - 07/16/2021 4:39 PM CST Pt calling stating they need a PA for this rx, please advise, thanks! Karni Dill 07/16/2021, 4:40 PM ANCE KEEPER Chloé Denny - 07/16/2021 2:05 PM CST Prescription form not necessary. RN spoke with pharmacy this morning and gave verbal. Sheldon Merlos - 07/16/2021 1:06 PM CST Images from the original note were not included. Recd universal prescription/ pharmacy intake form from [facility] Placed in providers right fax Sheldon Mays 07/16/2021, 1:07 PM ANCE KEEPER Cholé Denny - 07/16/2021 9:31 AM CST RN called [facility] (ph. [phone]) to give additional information per pt request - Rep transferred RN to pharmacy staff - They needed Rx confirmation because they did not receive our electronic Rx? RN gave verbal. Then called pt and left a voicemail update. Chloé Denny 07/16/2021, 9:40 AM ANCE KEEPER Cristhian Dueñas - 07/14/2021 12:11 PM CST Pt is calling regarding medication Nicole MUÑOZ - states insurance is asking for more information please call Cristhian Dueñas 07/14/2021, 12:13 PM ANCE KEEPER documented in this encounter Plan of Treatment Not on filedocumented as of this encounter Visit Diagnoses Not on filedocumented in this encounter Care Teams Accounts Receivable Analyst Relationship Specialty Start Date End Date Samantha Stauffer MD PCP - General Family Practice 12/12/[address]1999 [place] [address] documented as of this encounter
--- OUTSIDE RECORDS SUMMARY | 2022-04-21 03:51 | XMS_ITS | Encounter Summary ---
:1955 Author Organization [employer] Address [address] [place] [address] Care Team Providers Name Role Phone Samantha Stauffer MD Primary Care Provider [phone] Reason for Visit Reason Comments Medication Questions Encounter Details Date Type Department Care Team Description 12/30/2020 Telephone [facility] Walker Medicat ion Questions Neuro[facility] Center MD [facility] [address] [facility] [address] [place] [address] [place], [place] [phone] (Wo rk) Social History Tobacco Use Types [...] parkinson's. Dr. Thompson can be reached at [phone]. Thank you documented in this encounter Plan of Treatment Not on filedocumented as of this encounter Visit Diagnoses Not on filedocumented in this encounter Care Teams Activities Leader Relationship Specialty Start Date End Date Samantha Stauffer MD PCP - General Family Practice 12/12/191999 [place] [address] documented as of this encounter
--- OUTSIDE RECORDS SUMMARY | 2022-04-21 03:51 | XMS_ITS | Encounter Summary ---
:1955 Author Organization [facility] Address [address], [place] [address] Care Team Providers Name Role Phone Samantha Stauffer MD Primary Care Provider Reason for Visit Reason Comments Refill Encounter Details Date Type Department Care Team Description 05/18/2021 Refill [facility] Neuroscience Para Maria Esther newberry MD Refill Center Neurology [address] [facility] [address] [facility] [place] [address] [place] [address] [phone] Social History Tobacco Use Types Packs/Day Years [...] on filedocumented in this encounter Care Teams Grades 1 Thru 6 Home Teacher Relationship Specialty Start Date End Date Samantha Stauffer MD PCP - General Family Practice 12/12/191999 [place] [address] documented as of this encounter
--- OUTSIDE RECORDS SUMMARY | 2022-04-21 03:51 | XMS_ITS | Encounter Summary ---
:1955 Author Organization [facility] Address [address] [address] Care Team Providers Name Role Phone Samantha Stauffer MD Primary Care Provider [phone] Encounter Details Date Type Department Care Team Description 02/09/2021 Notes/Orders [facility] Neuroscience Mesfin Morgan SLP Center Speech Therap y [address] [place] [address] [id number] [place] [address] [phone] Social History Tobacco Use Types Packs/Day Years Used Date Smoking Tobacco: Never Smokeless Tobacco: Never Alcohol Use Standard Drinks/Week Comments Not Currently 0 (1 standard drink = 0.6 oz pure alcoho l) Sex Assigned at Date Recorded Not on file documented as of this encounter Progress Notes Mesfin Morgan SLP - 02/09/2021 10:30 AM CDT SPEECH THERAPY DISCHARGE NOTE Andrew Pang [id number] Payor: BS / Plan: BCBS OUT OF STATE / Product Type: Commercial [...] filedocumented in this encounter Care Teams Biomedical Engineering Director Relationship Specialty Start Date End Date Samantha Stauffer MD PCP - General Family Practice 12/12/19[address] [place] [address] documented as of this encounter
--- OUTSIDE RECORDS SUMMARY | 2022-04-21 03:51 | XMS_ITS | Encounter Summary ---
:1955 Author Organization [place] Address [address] [place] [address]. [place] [address] Care Team Providers Name Role Phone Lurdes Thomas MD Primary Care Provider [phone] Reason for Visit Reason Comments Establish Care Encounter Details Date Type Department Care Team Description 04/12/2010 Office Visit [facility] Lurdes Thomas Erectile dysfunction (Primary Dx); Uzair Laughlin MD Parkinson disease (H); [address] [employer] Hyperlipidemia LDL goal < 13 0; [place] [address] [place] Restless leg [phone] [place] [address] Social History Tobacco Use Types Packs/Day Years Used Date Smoking Tobacco: Never Alcohol Use Standard Drinks/Week Comments Yes 0 (1 standard drink = 0.6 oz pure alcoho l) not often Sex Assigned at Date Recorded Male 08/05/2020 2:57 PM CDT documented as of this encounter Last Filed Vital Signs Vital Sign Reading Time Taken Comments Blood Pressure 122/60 04/12/2010 10:07 AM LABORATORY ADMINISTRATIVE DIRECTOR Pulse 70 04/12/2010 10:07 AM LABORATORY ADMINISTRATIVE DIRECTOR Temperature - - Respiratory Rate - - Oxygen Saturation - - Inhaled Oxygen Concentration - - Weight 87 kg (191 lb 12.8 oz) 04/12/2010 10:07 AM LABORATORY ADMINISTRATIVE DIRECTOR Height 186.7 cm (6' 1.5) 04/12/2010 10:07 AM LABORATORY ADMINISTRATIVE DIRECTOR Body Mass Index 24.96 04/12/2010 10:07 AM LABORATORY ADMINISTRATIVE DIRECTOR documented in this encounter Progress Notes TrumanLurdes - 04/12/2010 2:09 PM CST SUBJECTIVE Andrew [...] MG tablet Lurdes Laughlin MD Internal Medicine/Pediatrics RATORY ADMINISTRATIVE DIRECTOR documented in this encounter Nursing Notes 04/12/2010 [...] (RLS) documented in this encounter Care Teams Worker'S Compensation Claims Examiner Relationship Specialty Start Date End Date Lurdes Thomas MD PCP - General Internal Medicine 04/12/10 04/03/13 documented as of this encounter
--- OUTSIDE RECORDS SUMMARY | 2022-04-21 03:51 | XMS_ITS | Encounter Summary ---
:1955 Author Organization [employer] Address [address], [place] [address] Care Team Providers Name Role Phone Samantha Stauffer MD Primary Care Provider [phone] Reason for Visit Reason Comments Medication Questions Encounter Details Date Type Department Care Team Description 06/11/2021 Telephone [facility] Doris Arauz electric operator Questions [address] [place] [address] Social History Tobacco Use Types Packs/Day [...] left again. Chloé Denny 06/16/2021, 1:21 PM PLACER MACHINE OPERATOR Chloé Denny - 06/14/2021 3:32 PM CST RN called pt to advise him to call [facility] back regarding his rx. No answer. Detailed voicemail left. Chloé Denny 06/14/2021, 3:33 PM PLACER MACHINE OPERATOR Doris Arauz RN - 06/11/2021 1:55 PM CST NSC pt. [facility] called because they are in need of more information to contact the patient. They have attempted 5 times with not luck. They are requesting a call back at [phone] PLACER MACHINE OPERATOR documented in this encounter Plan of Treatment Not on filedocumented as of this encounter Visit Diagnoses Not on filedocumented in this encounter Care Teams Desktop Support Manager Relationship Specialty Start Date End Date Samantha Stauffer MD PCP - General Family Practice 12/12/[address]1999 [place] [address] documented as of this encounter
--- OUTSIDE RECORDS SUMMARY | 2022-04-21 03:51 | XMS_ITS | Encounter Summary ---
:1955 Author Organization [place] Address [address] [place] [address]. [place] [address] Care Team Providers Name Role Phone Lurdes Thomas MD Primary Care Provider [phone] Reason for Visit Reason Comments Physical Encounter Details Date Type Department Care Team Description 10/15/2010 Office Visit [facility] Lurdes Thomas Routine g eneral medical examination at a health care facility (Primary Dx); Uzair Laughlin MD Restless leg syndrome; 1440 Phase [facility] Hyperlipidemia LDL goal < 13 0; [place] [address] [place] Erectile dysfunction; [phone] 8675 [facility] Parkinson disease (H); RD Screening for colon cancer; [place], [place] Screening for p rostate cancer; [address] Screening for diabetes mellitus Social History Tobacco [...] effects. All Histories reviewed and updated in [facility]. ROS: C: NEGATIVE for fever, chills, change [...] Signature PSA 0.85 0 - 4 ug/L [facility] Specimen Anatomical Collection Method Collection Time Receive d Time (Source) Location / / Volume Laterality Blood specimen 10/15/2010 8:32 AM 011 8:37 (specimen) CDT AM CDT Lurdes Thomas MD LAB - BLOOD ORDERABLES Performing Organization Address City/[facility]/ZIP Code Phon e Number [facility] [address] [place] [address] [facility] Ferritin (10/15/2010 8:32 AM CDT) athologist Signature Ferritin 47 20 - 300 [place] ng/mL CLINIC LAB Specimen Anatomical Collection Method Collection Time Receive d Time (Source) Location / / Volume Laterality Blood specimen 10/15/2010 8:32 AM 011 8:37 (specimen) CDT AM CDT Lurdes Thomas MD LAB - BLOOD ORDERABLES Performing Organization Address City/[facility] Phon e Number [facility] [address] [place] [address] [facility] (ABNORMAL) Comprehensive metabolic panel (10/15/2010 8:32 AM CDT) P athologist Signature Sodium 142 133 - 144 [facility] mmol/L [facility] Potassium 4.7 3.4 - 5.3 [facility] mmol/L [facility] Chloride 103 94 - 109 [facility] mmol/L CLINIC LAB Carbon Dioxide 28 20 - 32 [facility] mmol/L [facility] Anion Gap 11 6 - 17 [facility] mmol/L CLINIC LAB Comment: CORRECTED ON 10/18 AT 1537: PRE VIOUSLY REPORTED 10 Glucose 101 (H) 60 - 99 mg/dL [facility] C LINIC LAB Urea Nitrogen 21 7 - 30 mg/dL [facility] N [facility] Creatinine 0.99 0.66 - 1.25 mg/dL [facility] GFR Estimate 79 >60 mL/min/1.7m2 [place] [facility] Comment: CORRECTED ON 10/18 AT 1537: PRE VIOUSLY REPORTED Not Calculated GFR Estimate If Black >90 >60 mL/min/1.7m2 F [facility] CORRECTED ON 10/18 AT 1537: PREVIOUSLY REPORTED Not Tres culated CLINIC LAB Calcium 9.0 8.5 - 10.4 mg/dL [facility] N [facility] Bilirubin Total 0.7 0.2 - 1.3 mg/dL [facility] Albumin 4.2 3.9 - 5.1 g/dL [facility] Comment: Reference range changed on 01/21. Protein Total 7.1 6.8 - 8.8 g/dL [facility] Comment: As of 07, reference range reflects plasma specimen type. Alkaline Phosphatase 77 40 - 150 U/L [facility] LAB ALT 15 0 - 70 U/L [facility] CLIN IC LAB AST 31 0 - 55 U/L [facility] CLIN IC LAB Specimen Anatomical Collection Method Collection Time Receive d Time (Source) Location / / Volume Laterality Blood specimen 10/15/2010 8:32 AM 011 8:37 (specimen) CDT AM CDT Lurdes Thomas MD LAB - BLOOD ORDERABLES Performing Organization Address City/State/ZIP Code Phon e Number [facility] [address] [place] [address] [facility] (ABNORMAL) Lipid Profile (10/15/2010 8:32 AM CDT) P athologist Signature Cholesterol 232 (H) 0 - 200 [facility] mg/dL. Triglycerides 95 0 - 150 mg/dL [facility] HDL Cholesterol 56 40 - 110 mg/dL [facility] LDL Cholesterol Calculated 157 (H) 0 - 129 mg/dL [facility] Comment: LDL Cholesterol is the primary guide to therapy: LDL-cholesterol goal in high risk patients is <100 mg/dL and in very high risk patients is <70 mg/dL. VLDL-Cholesterol 19 0 - 30 mg/dL [facility] Cholesterol/HDL Ratio 4.1 0.0 - 5.0 [facility] Comment: CORRECTED ON 10/18 AT 1537: PRE VIOUSLY REPORTED 4.2 Specimen Anatomical Collection Method Collection Time Receive d Time (Source) Location / / Volume Laterality Blood specimen 10/15/2010 8:32 AM 011 8:37 (specimen) CDT AM CDT Lurdes Thmoas MD LAB - BLOOD ORDERABLES Performing Organization Address City/State/ZIP Code Phon e Number [facility] [address] [place] [address] [facility] documented in this encounter Visit Diagnoses Diagnosis Routine general medical examination at a [facility] - Primary Restless leg syndrome Restless legs syndrome (RLS) Hyperlipidemia LDL goal < 130 Other and unspecified hyperlipidemia Erectile dysfunction Impotence of organic origin Parkinson disease (H) Paralysis agitans Screening for colon cancer Special screening for malignant neoplasm s, colon Screening for prostate cancer Special screening for malignant neoplasm of prostate Screening for diabetes mellitus documented in this encounter Care Teams Milk Pickup Truck Driver Relationship Specialty Start Date End Date Lurdes Thomas MD PCP - General Internal Medicine 04/12/10 04/03/13 documented as of this encounter
--- OUTSIDE RECORDS SUMMARY | 2022-04-21 03:51 | XMS_ITS | Encounter Summary ---
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
--- OUTSIDE RECORDS SUMMARY | 2022-04-21 03:51 | XMS_ITS | Encounter Summary ---
:1955 Author Organization [facility] Address [address] [place] [address] Care Team Providers Name Role Phone Samantha Stauffer MD Primary Care Provider [phone] Reason for Visit Reason Comments Prior Authorization Request Amantadine HCl ER (GOCOVRI ) 137 MG CP24 Encounter Details Date Type Department Care Team Description 10/14/2021 Telephone [facility] Maria Esther Phan Prior A dehorization [facility] MD Prem Request (Amantadine Neurology [address] HCl ER (GOCOVRI) [address] MG CP24) [place] [address] [place], [place] [phone] [address] Social History Tobacco Use Types Packs/Day Years Used Date Smoking Tobacco: Never Smokeless Tobacco: Never Alcohol Use Standard Drinks/Week Comments Not Currently 0 (1 standard drink = 0.6 oz pure alcoho l) Sex Assigned at Date Recorded Not on file documented as of this encounter Nursing Notes Chloé Denny - 10/14/2021 2:35 PM CDT Approved Prior authorization approved Payer: [facility] CaseId:[id number];Status:Approved;Review Type:Prior Auth;Coverage Start Date:09/14/2021;Coverage End Date:10/14/2022; Approval Details Authorized from September 14, 2021 to October 14, 2022 Chloé Denny - 10/14/2021 1:09 PM CDT ePA requested through [facility]. Chloé Denny 10/14/2021, 1:09 PM Sylvia Burgess - 10/14/2021 9:10 AM CDT There is an approval through October 27 Recd fax from [facility], Please initiate new PA- Amantadine HCl ER (GOCOVRI) 137 MG CP24 Please see the providers right fax folder to review the fax for this TE. Sylvia Burgess 10/14/2021, 9:10 AM documented in this encounter Plan of Treatment Not on filedocumented as of this encounter Visit Diagnoses Not on filedocumented in this encounter Care Teams Smearer Relationship Specialty Start Date End Date Samantha Stauffer MD PCP - General Family Practice 12/12/191999 [place] [address] documented as of this encounter
--- OUTSIDE RECORDS SUMMARY | 2022-04-21 03:52 | XMS_ITS | Encounter Summary ---
:1955 Author Organization Where Address [address], [place] [address] Care Team Providers Name Role Phone Lurdes Thomas MD Primary Care Provider Reason for Visit Reason Comments Video Visit Consult/Transfer Care (Routine) - Closed Specialty Diagnoses / Procedures Referred By Contact Refer red To Contact Diagnoses Parkinson's disease (HRC) Maria Esther Phan MD 39[address] [place], [place] [address] Referral ID Status Reason Start Date Expiration Date Visits Requ ested Visits Authorized [id number] Closed 09/12/2019 12/11/2020 1 1 Encounter Details Date Type Department Care Team Description 09/18/2019 Telemedicine Specialty Center 3931 Divina Kaiser MD Parkinson's disease Neurosurgery 3931 [facility] (Primary Dx) 3931 [facility] [id number] [phone] Social History Tobacco Use Types Packs/Day Years [...] screening: no ?? Confirmed that patient has RebelMouse downloaded and ready: Yes ?? Patient is [...] Primary documented in this encounter Care Teams Brand Activation Manager Relationship Specialty Start Date End Date Lurdes Thomas MD PCP - General 06/18/14 12/11/19 documented as of this encounter
--- OUTSIDE RECORDS SUMMARY | 2022-04-21 03:52 | XMS_ITS | Encounter Summary ---
:1955 Author Organization [facility] Address [address], [place] [address] Care Team Providers Name Role Phone Samantha Stauffer MD Primary Care Provider [phone] Reason for Visit Reason Comments Refill Encounter Details Date Type Department Care Team Description 11/01/2020 Refill [facility] Neuroscience Para Maria Esther newberry MD Refill Center Neurology 3931 [facility] [address] [facility] [place] [address] [place] [address] [phone] Social History Tobacco Use Types Packs/Day Years [...] filedocumented in this encounter Care Teams Automatic Lathe Operator Relationship Specialty Start Date End Date Samantha Stauffer MD PCP - General Family Practice 12/12/191999 [place] [address] documented as of this encounter
--- OUTSIDE RECORDS SUMMARY | 2022-04-21 03:52 | XMS_ITS | Encounter Summary ---
:1955 Author Organization [facility] Address [address], [place] [address] Care Team Providers Name Role Phone Samantha Stauffer MD Primary Care Provider [phone] Reason for Referral Medication Prior Authorization (Routine) - Authorized Specialty Diagnoses / Procedures Referred By Contact Refer red To Contact Maria Esther Phan MD [address] [place], [place] [address] Referral ID Status Reason Start Date Expiration Date Visits V isits Requested Authorized [id number] Authorized 1 1 ERCIAL SALES CONSULTANT Reason for Visit Reason Onset Date Comments Refill 07/15/2020 Amantadine HCl ER (G OCOVRI) 137 MG CP24 Encounter Details Date Type Department Care Team Description 07/15/2020 [facility] (Amantadine HCl [facility] MD Prem ER (GOCOVRI) 137 MG Neurology [address] [place] [address] CP24) [address] [place] [address] [phone] (Wo rk) Social History Tobacco Use Types [...] at bedtime. Sheldon Mays 07/15/2020, 8:49 AM ERCIAL SALES CONSULTANT documented in this encounter Plan of Treatment Not on filedocumented as of this encounter Visit Diagnoses Not on filedocumented in this encounter Care Teams Project Manager/Team Coach Relationship Specialty Start Date End Date Samantha Stauffer MD PCP - General Family Practice 12/12/191999 [place] [address] documented as of this encounter
--- OUTSIDE RECORDS SUMMARY | 2022-04-21 03:52 | XMS_ITS | Encounter Summary ---
:1955 Author Organization [facility] Address [address] [address] Care Team Providers Name Role Phone Samantha Stauffer MD Primary Care Provider [phone] Reason for Referral Therapies (Routine) - Closed Specialty Diagnoses / Procedures Referred By Contact Refer red To Contact Diagnoses Parkinson's disease (HRC) Dysphagia, unspecified type Maria Esther Phan MD [address] [place], [place] [address] Referral ID Status Reason Start Date Expiration Date Visits Requ ested Visits Authorized [id number] Closed 10/28/2020 10/28/2021 999 999 Scheduling Instructions Your provider has recommended an appoint ment with a [facility] Speech Therapist. Please call for your appointment you may call [facility] at [phone]. We suggest you call your [facility] insurance company about your coverage and benefits for this appointment. Reason for Visit Reason Comments Pain Stomach and trouble swallowi ng Encounter Details Date Type Department Care Team Description 10/28/2020 [facility]phone [facility] ([facility] MD Prem trouble swallowing) Neurology [address] [address] [place], [place] [phone] (Wo rk) Social History Tobacco Use Types [...] call and schedule the swallow study (ph. [phone]) Spouse reports that pt went to see a provider at [facility] last (10/29) and was prescribed generic Prilosec. This has been helpful thus far. They also saw pt's PCP this morning (11/04) who is recommending a GI consult. Dr. Phan: Do you have a preferred foundry technician you would recommend to someone who has [...] (HRC) documented in this encounter Care Teams Housing Inspector Relationship Specialty Start Date End Date Samantha Stauffer MD PCP - General Family Practice 12/12/191999 [place] [address] documented as of this encounter
--- OUTSIDE RECORDS SUMMARY | 2022-04-21 03:52 | XMS_ITS | Encounter Summary ---
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) At risk for falling Maria Esther Phan MD [address] [place], [place] [address] Referral ID Status Reason Start Date Expiration Date Visits Requ ested Visits Authorized [id number] Closed 11/13/2020 11/13/2021 1 1 Encounter Details Date Type Department Care Team Description 12/04/2020 Therapy [facility] Carlos Cartwright, Prema n's disease (HRC) (Primary Dx); [facility] PT Impaired functional mobility, balance, g ait, and endurance Physical Therapy [address] [address] [phone] Social History Tobacco Use Types Packs/Day Years [...] discussion mentioned that they live close to [place] and it would be very difficult to attend physical therapy at this facility on a weekly to bi-weekly basis. After long discussion with patient and his , decision had been made for them to call [facility] and request a physical therapist that is certified in the Gather.md program that could effectively treat patient with less stress on family (reducing driving). Did educate patient on different Parkinson's classes in the community, our [facility] PD programs and on LS[employer] BIG program. Patient and his were satisfied [...] Name Type Priority Associated Diagnoses Order S [facility] Physical Therapy Referral Routine Parkinson's dis ease (HRC) Ordered: 11/13/2020 Dysphagia, unspe cified type Dyskinesia due to Parkinson' s disease (HRC) At risk for falling documented as of this encounter Visit Diagnoses Diagnosis Parkinson's disease (HRC) - Primary Impaired functional mobility, balance, g ait, and endurance documented in this encounter Care Teams Rubber Stamp Die Inspector Relationship Specialty Start Date End Date Samantha Stauffer MD PCP - General Family Practice 12/12/[address] [place] [address] documented as of this encounter
--- OUTSIDE RECORDS SUMMARY | 2022-04-21 03:52 | XMS_ITS | Encounter Summary ---
:1955 Author Organization [employer] Address [address] [place] [address] Care Team Providers Name Role Phone Samantha Stauffer MD Primary Care Provider [phone] Reason for Visit Reason Comments Nurse Visit Encounter Details Date Type Department Care Team Description 12/25/2019 Office Visit Specialty Center 3931 Nurse, P3931 Nsu En counter for post Neurosurgery surgical wound check 3931 [facility]. (Primary Dx) [place] [address] Social History Tobacco Use Types Packs/Day Years Used Date Smoking Tobacco: Never Smokeless Tobacco: Never Alcohol Use Standard Drinks/Week Comments Yes 0 (1 standard drink = 0.6 oz pure alcoho l) Sex Assigned at Date Recorded Not on file documented as of this encounter Patient Instructions Patient InstructionsKarni Singh RN - 12/25/2019 11:00 AM CDT [...] in another medication such as Percocet or [place]). ?? If you are still taking prescription [...] Primary documented in this encounter Care Teams Survey Supervisor Relationship Specialty Start Date End Date Samantha Stauffer MD PCP - General Family Practice 12/12/191999 [place] [address] documented as of this encounter
--- OUTSIDE RECORDS SUMMARY | 2022-04-21 03:52 | XMS_ITS | Encounter Summary ---
:1955 Author Organization [employer] Address [address] [place] [address] Care Team Providers Name Role Phone Samantha Stauffer MD Primary Care Provider [phone] Reason for Visit Auth/Cert Specialty Diagnoses / Procedures Referred By Contact Refer red To Contact Diagnoses Parkinson's disease (HRC) Procedures RIGHT DEEP BRAIN STIMULATOR GENERATOR REPLACEMENT Referral ID Status Reason Start Date Expiration Date Visits Requ ested Visits Authorized [id number] 1 1 Encounter Details Date Type Department Care Team Description 12/12/2019 Surgery Religious Operating Jorge L Kaiser MD RIGHT DEEP BRAIN Room [address] [facility] STIMULATOR GENERATOR [address] [place], [place] [id number] [phone] Social History Tobacco Use Types Packs/Day Years [...] upper arm muscles. This includes pushing a resident associate or vacuum and mopping floors. It also [...] can you learn more? 1. Go to [email or web address] or [employer]/My Study RewardsraPerlegen Sciences. 2. Enter D150 in the search box. Current as of: April 09, 2019?Content Version: 12.4 ?? 5513-1525 [employer]. Care instructions adapted under license by your healthcare professional. If you have questions abouta medical condition or this instruction, always ask your healthcare professional. [employer] disclaims any warranty or liability for your [...] on Keflex including possible side effects. Prescriptions [facility] in [place]. Belongings checklist reviewed with patient and belongings [...] Kaiser MD - 12/12/2019 8:17 AM CDT [facility] Operative Note Surgery Date: [...] 8-10 minutes) Implants: Activa PC Model number [id number] Serial No: [id number] Post-op Diagnosis: Parkinson's Disease, Right Infraclavicular IPG [...] - Rapid (COVID-19) (12/12/2019 6:06 AM CDT) [facility] Method Time Signature COVID-19 Not Not 12/12/2019 [facility] Interpretation Detected Detected 7:04 AM CDT LABORATORY Specimen Anatomical Collection Method Collection Time Receive d Time (Source) Location / / Volume Laterality Swab (Source Non-blood 12/12/2019 6:06 AM 0 6:09 Required) Collection / CDT AM CDT Unknown Narrative [facility] - 12/12/2019 7:04 A M CDT Test performed by real-time PCR. This test has been authorized by the FDA under an Emergency Use Authorization (EUA) for use by authorized laboratories. Jorge L Kaiser MD LAB_1 Performing Organization Address City/State/ZIP Code Phon e Number [facility] [address] [place] [address] documented in this encounter Visit Diagnoses Diagnosis Parkinson's disease (HRC) - Primary Parkinson's disease (HRC) Parkinson's disease (HRC) documented in this encounter Admitting Diagnoses Diagnosis Parkinson's disease (HRC) documented in this encounter Administered Medications Inactive Administered Medications - up to 3 most recent administrations Medication Order MAR Action Action Date Dose Rate Site bupivacaine-epinephrine PF Given 12/12/2019 7:58 AM CDT 20 mL (SENSORCAINE) 0.25% -1:[id number] injection ONCE PRN, Starting on Stacey 12/12/19 [...] (COMPLETED) 0735 (Given - Provider: Luis Anaya, SPINDLE SETTER, COMMUNITY INTEGRATION SPECIALIST) 2 g, Intravenous, Administer over 30 [...] (XYLOCAINE) 1 % injection 0.1-0.3 mL (COMPLETED) 06 (Given - Provider: Rubina Gomez, JAMAL) 0.1-0.3 mL, Subcutaneous, ONCE, [facility] 12/11 at 0615, For 1 dose, Lidocaine to be used for IV starts unless patient refuses., Pre-op pravastatin (PRAVACHOL) tablet 80 mg 80 mg, Oral, HS, First dose on Stacey 12/12/19 at 2100 sertraline (ZOLOFT) tablet 50 mg 09 (Due) 50 mg, Oral, DAILY (NS), First dose on [facility] 12/12/19 at 0900, OP SIG:Take 1 tablet by mouth daily (every 24 hours). Continuous Medication Order 12/10/2019 12/11/2019 12/12/2019 lactated ringers infusion (CANCELED) 0636 (Started - Provider: Rubina Gomez, JAMAL)0817 (Anesthesia Fluid - Provider: Luis Anaya APRN, COMMUNITY INTEGRATION SPECIALIST) 25 mL/hr, Intravenous, at 25 mL/hr, CONT INUOUS, Starting [facility] 12/12/19 at 0615, Administer on all preop surgery patients, ages 12 and older, unless specified differently in the Protocol for Preop Initiation of IV fluids Order Set., Pre-op NaCl 0.9%-KCl 20 mEq/liter infusion 0900 (Due) Intravenous, at 75 mL/hr, CONTINUOUS, Starting [facility] 12/12/19 at 09 00, Post-op PRN Medication Order 12/10/2019 12/11/2019 12/12/2019 acetaminophen (TYLENOL) tablet 650 mg 650 mg, Oral, Q4H PRN, Other, Mild Pain (pain score 1-4), Starting [facility] 12/12/19 at 0830, Every 4 hours [...] is ineffective., Post-op bupivacaine-epinephrine PF (SENSORCAINE) 0.25% -1:[id number] injecti on 0758 (Given - Provider: Jorge L Kaiser MD) ONCE PRN, Starting [place]acey 12/12/19 at 0758, Intra-op gentamicin 80 mg-clindamycin 900 mg in s odium chloride 1000 mL (DABS) irrigation solution 0802 (Given - Provid er: Jorge L Kaiser MD) ONCE PRN, Starting Stacey 12/12/19 at 0802, Intra-op HYDROcodone-acetaminophen (NORCO) 5-325 [...] time as ORAL opioids. HOLD if on HAND THERAPIST., Post-op lidocaine (UROJET) 2 % prefilled syringe [...] time as IV opioids. HOLD if on HAND THERAPIST., Post-op senna (SENOKOT) tablet 1-2 Tablet 1-2 Tablet, Oral, BID PRN, Other, Modera te Constipation, Starting Stacey 12/12/19 at 0830, Hold for loose stools, Post-op documented in this encounter Care Teams Speech And Language Specialist Relationship Specialty Start Date End Date Samantha Stauffer MD PCP - General Family Practice 12/12/191999 [place] [address] documented as of this encounter
--- OUTSIDE RECORDS SUMMARY | 2022-04-21 03:52 | XMS_ITS | Encounter Summary ---
:1955 Author Organization [facility] Address [address], [place] [address] Care Team Providers Name Role Phone Samantha Stauffer MD Primary Care Provider [phone] Reason for Referral Procedure/Equipment (Routine) - Incomplete Specialty Diagnoses / Procedures Referred By Contact Refer red To Contact Diagnoses Parkinson's disease (HRC) Dysphagia, unspecified type Maria Esther Phan MD Procedures [place] Video Swallow Study [address] [place], [place] [address] Referral ID Status Reason Start Date Expiration Date Visits V isits Requested Authorized [id number] Incomplete 11/04/2020 02/03/2022 1 1 Therapies (Routine) - Closed Specialty Diagnoses / Procedures Referred By Contact Refer red To Contact Diagnoses Parkinson's disease (HRC) Dysphagia, unspecified type Maria Esther Phan MD [address] [place], [place] [address] Referral ID Status Reason Start Date Expiration Date Visits Requ ested Visits Authorized [id number] Closed 11/04/2020 11/04/2021 1 1 Scheduling Instructions Your provider has recommended an appoint ment with a [facility] Speech Therapist. Please call for your appointment you may call [facility] Out[facility] Rehabilitation at [phone]. We suggest you call your [facility] insurance company about your coverage and benefits for this appointment. Reason for Visit Reason Comments Orders Needed FL VIDEO SWALLOW STUDY Encounter Details Date Type Department Care Team Description 11/04/2020 Telephone [facility] Maria Esther Phan Orders Needed ([facility] MD Jorden VIDEO SWALLOW STUDY ) Neurology 3931 [facility] [address] [place] [address] [place], [place] [phone] (Wo rk) Social History Tobacco Use Types [...] had done Jun). RN can see the VARNISH INSPECTOR order that requests video swallow study (with radiology and speech, but they need the actual order along with the VARNISH INSPECTOR order. The order is pended. Dr. Phan [...] CDT EXAM: [place] VIDEO SWALLOW STUDY LOCATION: [facility] DATE/TIME: 11/19/2020 11:56 AM INDICATION: [...] original. EXAM: [place] VIDEO SWALLOW STUDY LOCATION: [facility] DATE/TIME: 11/19/2020 11:56 AM INDICATION: [...] type documented in this encounter Care Teams Assistant Professor Of English Relationship Specialty Start Date End Date Samantha Stauffer MD PCP - General [facility] Practice 12/12/191999 [place] [address] documented as of this encounter
--- OUTSIDE RECORDS SUMMARY | 2022-04-21 03:52 | XMS_ITS | Encounter Summary ---
:1955 Author Organization [facility] Address [address] [address] Care Team Providers Name Role Phone Lurdes Thomas MD Primary Care Provider Reason for Referral Consult/Transfer Care (Routine) - Closed Specialty Diagnoses / Procedures Referred By Contact Refer red To Contact Diagnoses Parkinson's disease (HRC) Richard Phan MD [address] [place], [place] [address] Referral ID Status Reason Start Date Expiration Date Visits Requ ested Visits Authorized [id number] Closed 09/12/2019 12/11/2020 1 1 Scheduling Instructions Your provider has recommended an appoint ment with Jasmine Ramirez. You may call [phone] to schedule your appoi ntment. If you do not schedule an appointment within the next 1 to 3 business days, we will call you to help arrange your appointment. We suggest you call your [facility] insurance company about your coverage and benefits for this appointment. Reason for Visit Reason Comments QUESTIONS, GENERAL UPDATE Encounter Details Date Type Department Care Team Description 09/02/2019 Telephone Richard Mckeon NS, GENERAL; Neuroscience Center MD Prem UPDATE Neurology [address] [place] [address] [place], [place] [phone] (Wo rk) Social History Tobacco Use Types [...] Cates RN - 09/12/2019 11:36 AM CDT [facility] Matt Cates RN 09/12/2019, 11:37 [...] that we are restarting battery changes at [facility] with Dr. Kaiser, so if they wish [...] will be limited to drop off and pickling grader on the day of surgery. A family [...] Primary documented in this encounter Care Teams Tree Surgeon Helper Relationship Specialty Start Date End Date Lurdes Thomas MD PCP - General 06/18/14 12/11/19 documented as of this encounter
--- OUTSIDE RECORDS SUMMARY | 2022-04-21 03:52 | XMS_ITS | Encounter Summary ---
:1955 Author Organization [employer] Address [address], [place] [address] Care Team Providers Name Role Phone Lurdes Thomas MD Primary Care Provider Reason for Referral (Routine) - Incomplete Specialty Diagnoses / Procedures Referred By Contact Refer red To Contact Diagnoses Parkinson's disease (HRC) Jorge L Kaiser MD Procedures Case Request OR - Neurosurgery: RIGHT DEEP BRAIN STIMULATOR GENERATOR REPLACEMENT [address] [place] [address] Referral ID Status Reason Start Date Expiration Date Visits V isits Requested Authorized [id number] Incomplete 09/18/2019 12/17/2020 1 1 Encounter Details Date Type Department Care Team Description 09/18/2019 Prep for [facility] Jorge L Kaiser MD Parkinson's disease 3931 Neurosurgery 3931 [facility] (Primary Dx) [address] [place] [address] [place] [address] [phone] Social History Tobacco Use Types Packs/Day Years [...] Primary documented in this encounter Care Teams Organ Installer Relationship Specialty Start Date End Date Lurdes Thomas MD PCP - General 06/18/14 12/11/19 documented as of this encounter
--- OUTSIDE RECORDS SUMMARY | 2022-04-21 03:52 | XMS_ITS | Encounter Summary ---
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 [address] [place], [place] [phone] Social History Tobacco Use Types Packs/Day Years [...] any sensory deficits. There are no tremors. Yubagk-zevx-pfbjnt is accurate. There is mild bradykinesia. He [...] coordination documented in this encounter Care Teams Used Car Salesperson Relationship Specialty Start Date End Date Lurdes Thomas MD PCP - General 06/18/14 12/11/19 documented as of this encounter
--- OUTSIDE RECORDS SUMMARY | 2022-04-21 03:52 | XMS_ITS | Encounter Summary ---
:1955 Author Organization [facility] Address [address] [place] [address] Care Team Providers Name Role Phone Lurdes Thomas MD Primary Care Provider Reason for Visit Reason Comments Refill Encounter Details Date Type Department Care Team Description 08/21/2019 Refill [facility] Neuroscience Maria Esther Reis MD Refill Center Neurology 3931 [facility] [address] [place] [address] [place] [address] [phone] Social History Tobacco Use Types Packs/Day Years [...] on filedocumented in this encounter Care Teams Abattoir Supervisor Relationship Specialty Start Date End Date Lurdes Thomas MD PCP - General 06/18/14 12/11/19 documented as of this encounter
--- OUTSIDE RECORDS SUMMARY | 2022-04-21 03:52 | XMS_ITS | Encounter Summary ---
:1955 Author Organization [employer] Address [address], [place] [address] Care Team Providers Name Role Phone Samantha Stauffer MD Primary Care Provider [phone] Reason for Visit Reason Comments Labs Needed Encounter Details Date Type Department Care Team Description 11/27/2019 Telephone Specialty Center 393 1 Neurosurgery Aurora Ruiz RN Labs Needed [address] [place], [place] [phone] Social History Tobacco Use Types Packs/Day Years Used Date Smoking Tobacco: Never Smokeless Tobacco: Never Alcohol Use Standard Drinks/Week Comments Yes 0 (1 standard drink = 0.6 oz pure alcoho l) Sex Assigned at Date Recorded Not on file documented as of this encounter Nursing Notes Aurora Ruiz, RN - 11/27/2019 3:36 PM CDT Covid test ordered. MRSA test ordered and faxed to [facility]. Emailed surgical teaching information. documented in this encounter Plan of Treatment Not on filedocumented as of this encounter Visit Diagnoses Diagnosis Preop testing - Primary Preoperative examination, unspecified documented in this encounter Care Teams Director Imaging Relationship Specialty Start Date End Date Samantha Stauffer MD PCP - General Family Practice 12/12/191999 [place] [address] documented as of this encounter
--- OUTSIDE RECORDS SUMMARY | 2022-04-21 03:52 | XMS_ITS | Encounter Summary ---
:1955 Author Organization [facility] Address [address] [address] Care Team Providers Name Role Phone Samantha Stauffer MD Primary Care Provider [phone] Encounter Details Date Type Department Care Team Description 11/20/2019 Prep for [facility] 3931 Clementine Kaiser MD Neurosurgery [address] [address] [phone] Social History Tobacco Use Types Packs/Day Years [...] on filedocumented in this encounter Care Teams Avionics Supervisor Relationship Specialty Start Date End Date Samantha Stauffer MD PCP - General Family Practice 12/12/191999 [place] [address] documented as of this encounter
--- OUTSIDE RECORDS SUMMARY | 2022-04-21 03:52 | XMS_ITS | Encounter Summary ---
:1955 Author Organization [facility] [employer] Address [address] [place] [address] Care Team Providers Name Role Phone Lurdes Thomas MD Primary Care Provider Reason for Visit Reason Comments Prior Authorization Request update needed - [facility] Encounter Details Date Type Department Care Team Description 10/10/2019 Telephone [facility] Prior [facility] MD Prem Request (update needed Neurology 3931 [facility] - [facility]) [address] [facility] [place] [address] [place], [place] [phone] Social History Tobacco Use Types Packs/Day [...] 11:12 AM CDT Nurse requested ePA through [employer]. Matt Cates RN 10/10/2019, 11:12 AM Maria Esther Phan MD - 10/10/2019 11:07 AM CDT Blaise, can you please see if there is anything we need to do? Jeannette Dee - 10/10/2019 10:53 AM CDT Spouse calling for pt - [facility] pharamacy checking on status for PA for [facility]. Pt needs this medication by Monday. Please call pt back and advise. THanks Jeannette Dee 10/10/2019, 10:53 AM documented in this encounter Plan of Treatment Not on filedocumented as of this encounter Visit Diagnoses Not on filedocumented in this encounter Care Teams Collection Team Lead Relationship Specialty Start Date End Date Lurdes Thomas MD PCP - General 06/18/14 12/11/19 documented as of this encounter
--- OUTSIDE RECORDS SUMMARY | 2022-04-21 03:52 | XMS_ITS | Encounter Summary ---
:1955 Author Organization [facility] Address [address], [place] [address] Care Team Providers Name Role Phone Samantha Stauffer MD Primary Care Provider [phone] Reason for Visit Reason Comments Refill Encounter Details Date Type Department Care Team Description 05/24/2020 Refill [facility] Neuroscience Para Maria Esther newberry MD Refill Center Neurology 3931 [facility] [address] [facility] [place] [address] [place] [address] [phone] Social History Tobacco Use Types Packs/Day Years [...] on filedocumented in this encounter Care Teams Photovoltaic Technician Relationship Specialty Start Date End Date Samantha Stauffer MD PCP - General Family Practice 12/12/191999 [place] [address] documented as of this encounter
--- OUTSIDE RECORDS SUMMARY | 2022-04-21 03:52 | XMS_ITS | Encounter Summary ---
:1955 Author Organization [employer] Address [address], [place] [address] Care Team Providers Name Role Phone Samantha Stauffer MD Primary Care Provider [phone] Reason for Visit Reason Comments Post-Op Check Encounter Details Date Type Department Care Team Description 01/24/2020 Telemedicine Specialty Center 3931 Divina Kaiser MD Parkinson's disease Neurosurgery 3931 [facility] (Primary Dx) [address] [facility] [address] [phone] Social History Tobacco Use Types Packs/Day Years [...] counseling or coordinating care. Jorge L Kaiser M.D. documented in this encounter Plan of Treatment Not on filedocumented as of this encounter Visit Diagnoses Diagnosis Parkinson's disease (HRC) - Primary documented in this encounter Care Teams Alterations Supervisor Relationship Specialty Start Date End Date Samantha Stauffer MD PCP - General Family Practice 12/12/191999 [place] [address] documented as of this encounter
--- OUTSIDE RECORDS SUMMARY | 2022-04-21 03:52 | XMS_ITS | Encounter Summary ---
:1955 Author Organization [employer] Address [address] [place] [address] Care Team Providers Name Role Phone Lurdes Thomas MD Primary Care Provider Reason for Visit Reason Comments Concerns Battery getting low Encounter Details Date Type Department Care Team Description 08/28/2019 Telephone [facility] Walker Concern s (Battery [facility] MD Prem getting low) Neurology [address] [facility] [address] [place] [address] [place], [place] [phone] (Wo rk) Social History Tobacco Use Types [...] 09/13/2019. Please help them set up the [employer] madhav. Matt Cates RN 08/28/2019, 3:04 PM [...] on filedocumented in this encounter Care Teams Cash Applications Specialist Relationship Specialty Start Date End Date Lurdes Thomas MD PCP - General 06/18/14 12/11/19 documented as of this encounter
--- OUTSIDE RECORDS SUMMARY | 2022-04-21 03:52 | XMS_ITS | Encounter Summary ---
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 Reason for Visit Therapies (Routine) - Closed Specialty Diagnoses / Procedures Referred By Contact Refer red To Contact Diagnoses Parkinson's disease (HRC) [place]ysph[place]ia, [place] [address] [place] [phone] Referral ID Status Reason Start Date Expiration Date Visits Requ ested Visits Authorized [id number] Closed 10/28/2020 10/28/2021 999 999 Encounter Details Date Type Department Care Team Description 11/19/2020 Office Visit [facility] Fong, Dysphagia, o ropharyngeal phase (Primary Dx); Neuroscience Center CUTTER GRINDER Parkinson's disease (HRC); Speech Therapy [address] Hypokinetic Parkinsonian dysphonia (HR) [address] [place] [id number] [id number] [place] [address] [phone] Social History Tobacco Use Types Packs/Day Years Used Date Smoking Tobacco: Never Smokeless Tobacco: Never Alcohol Use Standard Drinks/Week Comments Not Currently 0 (1 standard drink = 0.6 oz pure alcoho l) Sex Assigned at Date Recorded Not on file documented as of this encounter Patient Instructions Patient InstructionsPaMesfin moscoso SLP - 11/19/2020 11:30 AM CDT Andrew, [...] reach out to you soon. JB Samuels [facility] -- [facility] Licensed Speech Language Pathologist -- Outpatient appointments [...] set to have EGD done tomorrow in [place], [place]. Hopefully this will lead to a [...] a regular diet with thin liquids [employer] Insurance Info: Today's Visit Number: 1 Progress [...] to IDDSI liquid framework: Davina Alegria, Mapping [employer] Varibar Barium Products to the IDDSI Framework. IDDSI website. ht tps://iddsi.org/IDDSI/media/images/Publications/Snhqglm-Ehidnvw-fa-IDDSI-Framewo rk.pdf. October 2016. Varibar Thin 40% IDDSI Level 0-Thin Varibar Hoot Owl 40% IDDSI Level 2-Mildly Thick Varibar Thin [...] Dysphonia documented in this encounter Care Teams Clinical Documentation Clerk Relationship Specialty Start Date End Date Samantha Stauffer MD PCP - General Family Practice 12/12/191999 [place] [address] documented as of this encounter
--- OUTSIDE RECORDS SUMMARY | 2022-04-21 03:52 | XMS_ITS | Encounter Summary ---
:1955 Author Organization [facility] Address [address] [place] [address] Care Team Providers Name Role Phone Samantha Stauffer MD Primary Care Provider Reason for Visit Reason Comments Prior Authorization Request Amantadine HCl ER (GOCOVRI ) 137 MG CP24 Encounter Details Date Type Department Care Team Description 10/27/2020 [facility]phone [facility] Maria Esther Phan Prior A uthorization Neuroscience Center MD Prem Request (Amantadine Neurology [address] HCl ER (GOCOVRI) [address] MG CP24) [place] [address] [place], [place] [phone] Social History Tobacco Use Types Packs/Day Years Used Date Smoking Tobacco: Never Smokeless Tobacco: Never Alcohol Use Standard Drinks/Week Comments Yes 0 (1 standard drink = 0.6 oz pure alcoho l) Sex Assigned at Date Recorded Not on file documented as of this encounter Nursing Notes Chloé Denny - 11/06/2020 8:37 AM CDT Prior authorization approved -[employer] Payer: [facility] CaseId:[id number];Status:Approved;Review Type:Prior Auth;Coverage Start Date:09/27/2020;Coverage End Date:10/27/2021; RN [...] on filedocumented in this encounter Care Teams Yarn Tester Relationship Specialty Start Date End Date Samantha Stauffer MD PCP - General Family Practice 12/12/191999 [place] [address] documented as of this encounter
--- OUTSIDE RECORDS SUMMARY | 2022-04-21 03:52 | XMS_ITS | Encounter Summary ---
:1955 Author Organization [facility] Address [address] [address] Care Team Providers Name Role Phone Lurdes Thomas MD Primary Care Provider Reason for Visit Reason Onset Date Comments Refill 08/01/2019 Encounter Details Date Type Department Care Team Description 08/01/2019 Refill [facility] Neuroscience Maria Esther Reis MD Refill Center Neurology [address] [facility] [address] [place] [address] [place] [address] [phone] Social History Tobacco Use Types Packs/Day Years [...] at bedtime Qty: 60 Last Refill: 07/08/2019 [facility]: Was the pharmacy entered into the Preferred Pharmacy field? Yes Abi Laughlin 08/01/2019, 10:31 AM documented in this encounter Plan of Treatment Not on filedocumented as of this encounter Visit Diagnoses Not on filedocumented in this encounter Care Teams Dyeing Machine Tender Relationship Specialty Start Date End Date Lurdes Thomas MD PCP - General 06/18/14 12/11/19 documented as of this encounter
--- OUTSIDE RECORDS SUMMARY | 2022-04-21 03:52 | XMS_ITS | Encounter Summary ---
:1955 Author Organization [facility] Address [address], [place] [address] Care Team Providers Name Role Phone Samantha Stauffer MD Primary Care Provider [phone] Encounter Details Date Type Department Care Team Description 12/21/2020 Telephone [employer] Neuroscience Princess Phan, [place] [facility] [address] [facility] [address] [facility] [place] [address] [place] [address] [phone] (Wo rk) Social History Tobacco Use Types [...] info edited w/ current number : ph. [phone]) Natasha reports that since decreasing RYTARY to [...] addressed first. Pt has an appt with [facility] in [place] tomorrow (12/25) as well as a f/u [...] disconnected. Number is disconnected. RN sent a [employer] message encouraging them to give us a call. Chloé Denny 12/22/2020, 4:19 PM Chloé Denny - 12/21/2020 3:55 PM CDT RN attempted to call Natasha back 2 x @ . [phone] and line was disconnected (message states destination not assigned). Then called . [phone], no answer. [facility] Chloé Denny 12/21/2020, 3:57 PM [...] on filedocumented in this encounter Care Teams Video Production Engineer Relationship Specialty Start Date End Date Samantha Stauffer MD PCP - General Family Practice 12/12/[address] [place] [address] documented as of this encounter
--- OUTSIDE RECORDS SUMMARY | 2022-04-21 03:52 | XMS_ITS | Encounter Summary ---
:1955 Author Organization [employer] Address [address] [place] [address] Care Team Providers Name Role Phone Samantha Stauffer MD Primary Care Provider [phone] Reason for Visit Auth/Cert Specialty Diagnoses / Procedures Referred By Contact Refer red To Contact Diagnoses Parkinson's disease (HRC) Procedures RIGHT DEEP BRAIN STIMULATOR GENERATOR REPLACEMENT Referral ID Status Reason Start Date Expiration Date Visits Requ ested Visits Authorized [id number] 1 1 Encounter Details Date Type Department Care Team Description 12/12/2019 Hospital Encounter Buddhist Operating Clementine Kaiser MD Parkinson's disease Room [address] [place] [address]) [address] [place] [address] [place] [address] [phone] Social History Tobacco Use Types Packs/Day Years [...] upper arm muscles. This includes pushing a filler machine operator or vacuum and mopping floors. [...] can you learn more? 1. Go to [email or web address] Poalroath Rongroeurngrary or [employer]/Lost My NameraManageSocial. 2. Enter D150 in the search box. Current as of: April 09, 2019?Content Version: 12.4 ?? [id number] [employer] Care instructions adapted under license by your healthcare professional. If you have questions abouta medical condition or this instruction, always ask your healthcare professional. [employer] disclaims any warranty or liability for your [...] on Keflex including possible side effects. Prescriptions [facility] [place]. Belongings checklist reviewed with patient and belongings [...] L Kaiser MD 12/12/2019 Source Note - Provider, MD Romeo - 12/09/2019 12:00 AM CDT documented in this encounter Procedure Notes Jorge L Kaiser MD - 12/12/2019 8:17 AM CDT [facility] Operative Note Surgery Date: 12/12/2019 [...] 8-10 minutes) Implants: Activa PC Model number [id number] Serial No: [id number] Post-op Diagnosis: Parkinson's Disease, Right Infraclavicular IPG [...] - Rapid (COVID-19) (12/12/2019 6:06 AM CDT) [facility] Method Time Signature COVID-19 Not Not 12/12/2019 [facility] Interpretation Detected Detected 7:04 AM CDT LABORATORY Specimen Anatomical Collection Method Collection Time Receive d Time (Source) Location / / Volume Laterality Swab (Source Non-blood 12/12/2019 6:06 AM 0 6:09 Required) Collection / CDT AM CDT Unknown Narrative [facility] - 12/12/2019 7:04 A M CDT Test performed by real-time PCR. This test has been authorized by the FDA under an Emergency Use Authorization (EUA) for use by authorized laboratories. Jorge L Kaiser MD LAB_1 Performing Organization Address City/State/ZIP Code Phon e Number [facility] [address] [place] [address] documented in this encounter Visit Diagnoses Diagnosis Parkinson's disease (HRC) - Primary Parkinson's disease (HRC) documented in this encounter Admitting Diagnoses Diagnosis Parkinson's disease (HRC) documented in this encounter Administered Medications Inactive Administered Medications - up to 3 most recent administrations Medication Order MAR Action Action Date Dose Rate Site bupivacaine-epinephrine PF Given 12/12/2019 7:58 AM CDT 20 mL (SENSORCAINE) 0.25% -[id number] injection ONCE PRN, Starting on Stacey 12/12/19 [...] (COMPLETED) 0735 (Given - Provider: Luis Anaya, SUPERVISOR AREA, ANSWERING SERVICE AGENT) 2 g, Intravenous, Administer over 30 Min [...] at 2100 sertraline (ZOLOFT) tablet 50 mg 899 (Due) 50 mg, Oral, DAILY (NS), First dose on T 12/12/19 at 0900, OP SIG:Take 1 tablet by mouth daily (every 24 hours). Continuous Medication Order 12/10/2019 12/11/2019 12/12/2019 lactated ringers infusion (CANCELED) 0636 (Started - Provider: Rubina Gomez, JAMAL)0817 (Anesthesia Fluid - Provider: Luis Anaya APRN, ANSWERING SERVICE AGENT) 25 mL/hr, Intravenous, at 25 mL/hr, CONT [...] is ineffective., Post-op bupivacaine-epinephrine PF (SENSORCAINE) 0.25% -1:[id number] injecti on 0758 (Given - Provider: Jorge [...] time as ORAL opioids. HOLD if on BUFFING WHEEL OPERATOR., Post-op lidocaine (UROJET) 2 % prefilled [...] time as IV opioids. HOLD if on BUFFING WHEEL OPERATOR., Post-op senna (SENOKOT) tablet 1-2 Tablet 1-2 Tablet, Oral, BID PRN, Other, Modera te Constipation, Starting Stacey 12/12/19 at 0830, Hold for loose stools, Post-op documented in this encounter Care Teams Chemic Mangler Relationship Specialty Start Date End Date Samantha Stauffer MD PCP - General Family Practice 12/12/191999 [place] [id number] documented as of this encounter
--- OUTSIDE RECORDS SUMMARY | 2022-04-21 03:52 | XMS_ITS | Encounter Summary ---
:1955 Author Organization [facility] Address [address], [place] [address] Care Team Providers Name Role Phone Lurdes Thomas MD Primary Care Provider Reason for Visit Reason Comments QUESTIONS, GENERAL Encounter Details Date Type Department Care Team Description 09/17/2019 Telephone [facility] [employer] [facility] Maria Esther Phan, GENERAL Neuroscience Center MD Prem Neurology [address] [facility] [address] [facility] [place] [phone] (Wo rk) Social History Tobacco Use Types [...] the top of his limit. Gave him [place] DBS nurse line to call if he had programing questions. FYI. Maria Esther Phan MD - 09/23/2019 12:30 PM CDT OK, I will ask nursing for DBS programming with [place], to see if we can put off [...] Phan may have patient to go to [place] to have an adjustment. They would be interested in this if it is a possibility. Dr. Phan, please review and advise. Matt Cates RN 09/23/2019, 12:18 PM Sylvia Burgess - 09/23/2019 10:10 AM CDT Spouse called in, wanting to speak with Blaise about his battery and could be that it needs adjusting.Please call [phone] Sylvia Burgess 09/23/2019, 10:11 AM Matt Cates [...] filedocumented in this encounter Care Teams Metal Fabricating Inspector Relationship Specialty Start Date End Date Lurdes Thomas MD PCP - General 06/18/14 12/11/19 documented as of this encounter
--- OUTSIDE RECORDS SUMMARY | 2022-04-21 03:52 | XMS_ITS | Encounter Summary ---
:1955 Author Organization [facility] Address [address], [place] [address] Care Team Providers Name Role Phone Lurdes Thomas MD Primary Care Provider Reason for Visit Procedure/Equipment (Routine) - Incomplete Specialty Diagnoses / Procedures Referred By Contact Refer red To Contact Diagnoses Dysphagia, oropharyngeal phase Parashos, Maria Esther Amaro MD Procedures FL Video Swallow Study [address] [place], [place] [address] Referral ID Status Reason Start Date Expiration Date Visits V isits Requested Authorized [id number] Incomplete 06/24/2019 09/22/2020 1 1 Encounter Details Date Type Department Care Team Description 06/24/2019 [facility]illary [facility] Parashos, Dysphagia, Procedure Neuroscience Center Maria Esther Amaro MD oropharyngeal phase Radiology Fluoro [address] [place] [address] [place] [address] [facility] [phone] [place] [address] Social History Tobacco Use Types [...] PM Dysphagia, Resul ts for this STUDY MAIL INSERTER oropharyngeal phase procedur e are in the results section. documented in this encounter Results FL Video Swallow Study (06/24/2019 4:10 PM MAIL INSERTER) Anatomical Region Laterality Modality Neck, Chest Radio Fluoroscopy Specimen (Source) Anatomical Collection Method Collection Time Re ceived Time Location / / Volume Laterality 06/24/2019 4:10 PM MAIL INSERTER Narrative 06/24/2019 5:11 PM MAIL INSERTER EXAM: FL VIDEO SWALLOW STUDY LOCATION: [facility] DATE/TIME: 06/24/2019 4:10 PM INDICATION: [...] EXAM: FL VIDEO SWALLOW STUDY LOCATION: [facility] DATE/TIME: 06/24/2019 4:10 PM INDICATION: [...] (VARIBAR NECTAR) 40 Given 06/24/2019 4:12 PM MAIL INSERTER 20 mL % oral suspension 20 mL 20 mL, Oral, ONCE (NON-SCHEDULED), Starting on 06/24/19 at 1611, Until Discontinued, For 3 doses Inactive Administered Medications - up to 3 most recent administrations Medication Order MAR Action Action Date Dose Rate Site barium sulfate (ENTERO VU) Given 06/24/2019 4:12 PM MAIL INSERTER 20 mL suspension 20 mL 20 mL, Oral, ONCE (NON-SCHEDULED), Starting on 06/24/19 at 1611, For 1 dose barium sulfate (EZ-DISK) tablet 700 mg Given 06/24/2019 4:12 PM MAIL INSERTER 700 mg 700 mg, Oral, ONCE (NON-SCHEDULED), Starting on 06/24/19 at 1611, Until Mon06/24/19 at 1612, For 1 dose barium Sulfate (VARIBAR PUDDING) oral pudding 5 Given 06/24/2019 4:12 PM MAIL INSERTER 5 mL mL 5 mL, Oral, ONCE (NON-SCHEDULED), Starting on 06/24/19 at 1611, Until 06/24/19 at 1612, For 1 dose documented in this encounter Care Teams Concrete Panel Installer Relationship Specialty Start Date End Date Lurdes Thomas MD PCP - General 06/18/14 12/11/19 documented as of this encounter
--- OUTSIDE RECORDS SUMMARY | 2022-04-21 03:52 | XMS_ITS | Encounter Summary ---
:1955 Author Organization [facility] Address [address] [address] Care Team Providers Name Role Phone Samantha Stauffer MD Primary Care Provider [phone] Reason for Visit Reason Comments RELEASE OF RECORDS Encounter Details Date Type Department Care Team Description 12/15/2020 Telephone [facility] Maria Esther Phan RELEASE OF RECORDS Neuroscience Center MD Prem Neurology [address] [facility] [address] [place] [address] [phone] (Wo rk) Social History Tobacco Use Types [...] original note were not included. Records from [facility] received and sent to scanning. Kelly Encarnacion CMA 12/15/2020, 2:19 PM documented in this encounter Plan of Treatment Not on filedocumented as of this encounter Visit Diagnoses Not on filedocumented in this encounter Care Teams Call Center Director Relationship Specialty Start Date End Date Samantha Stauffer MD PCP - General Family Practice 12/12/191999 [place] [address] documented as of this encounter
--- OUTSIDE RECORDS SUMMARY | 2022-04-21 03:52 | XMS_ITS | Encounter Summary ---
:1955 Author Organization [facility] Address [address] [place] [address] Care Team Providers Name Role Phone Lurdes Thomas MD Primary Care Provider Reason for Visit Reason Comments Dysphagia Encounter Details Date Type Department Care Team Description 06/24/2019 Office Visit [facility], [facility] Center Nabila Luo, JB oropharyngeal phase Speech Therapy [address] (Primary Dx) [address] [place], [place] [address] [place] [address] [phone] Social History Tobacco Use Types Packs/Day Years [...] goals established as no further intervention from FOOD PORTER service is warranted at this time. VISIT INFORMATION [facility] Insurance Info: Today's Visit Number: 1 Progress [...] Today: Exam completed Results reviewed. Pt and FOOD PORTER watched MBSS video together with FOOD PORTER pointing out anatomical landmarks and explaining how [...] Total Treatment Time: 35 minutes Nabila Morrell CCC-FOOD PORTER 06/24/2019 WIRE INSULATOR documented in this encounter Plan of Treatment Not on filedocumented as of this encounter Visit Diagnoses Diagnosis Dysphagia, oropharyngeal phase - Primary documented in this encounter Care Teams Materials Manager Relationship Specialty Start Date End Date Lurdes Thomas MD PCP - General 06/18/14 12/11/19 documented as of this encounter
--- OUTSIDE RECORDS SUMMARY | 2022-04-21 03:52 | XMS_ITS | Encounter Summary ---
:1955 Author Organization [employer] Address [address] [address] Care Team Providers Name Role Phone Samantha Stauffer MD Primary Care Provider [phone] Reason for Visit Auth/Cert Specialty Diagnoses / Procedures Referred By Contact Refer red To Contact Diagnoses Parkinson's disease (HRC) Procedures RIGHT DEEP BRAIN STIMULATOR GENERATOR REPLACEMENT Referral ID Status Reason Start Date Expiration Date Visits Requ ested Visits Authorized [id number] 1 1 Encounter Details Date Type Department Care Team Description 12/12/2019 Anesthesia Event Anabaptism Operating Migel Portillo MD [address] [place] [address] [facility] Nasim Armstrong MD [address] [place] [address] [place] [address] Anesthesia Record Procedure Summary Procedure [...] Electr onically signed by Luis Anaya APRN, PROFESSIONAL APPLICATION DESIGNER Name Total midazolam injection 2 mg/2 mL [...] Placement Date: 12/12/19744 by 12/26/191942 b y [place], 12/12/19; Placement Luis Anaya Discontin ue Time: 744; MARISOL Ricketts, BASILIO Pre-existing: No; Inserted by?: Anesthesiologist; Size (Gauge): [...] Portillo MD - 12/12/2019 11:16 AM CDT [facility] Anesthesia Post-op Note Patient: Andrew Pang Post-Op [...] Armstrong MD - 12/12/2019 7:16 AM CDT [facility] Anesthesia Pre-op Evaluation Procedure: Procedure(s): Right - [...] benefits and alternatives discussed with: Patient or Sterile Products Processor agree tothe anesthesia treatment plan and Patient. [...] documented in this encounter Care Teams General Superintendent Relationship Specialty Start Date End Date Samantha Stauffer MD PCP - General Family Practice 12/12/191999 [place] [address] documented as of this encounter
--- OUTSIDE RECORDS SUMMARY | 2022-04-21 03:52 | XMS_ITS | Encounter Summary ---
:1955 Author Organization [facility] Address [address], [place] [address] Care Team Providers Name Role Phone Samantha Stauffer MD Primary Care Provider [phone] Reason for Visit Procedure/Equipment (Routine) - Incomplete Specialty Diagnoses / Procedures Referred By Contact Refer red To Contact Diagnoses Parkinson's disease ([facility]) Dysphagia, unspecified type Maria Esther Phan MD Procedures FL Video Swallow Study [address] [place], [place] [address] Referral ID Status Reason Start Date Expiration Date Visits V isits Requested Authorized [id number] Incomplete 11/04/2020 02/03/2022 1 1 Encounter Details Date Type Department Care Team Description 11/19/2020 [facility] Parashos, Pre-procedura l laboratory examination (Primary Dx); Procedure Neuroscience Center Maria Esther Amaro MD Parkinson's disease ([facility]); Radiology Fluoro [address] [place] Dysphagia, unspecified type [address] [facility] [place] [address] [place], [place] [phone] Social History Tobacco Use Types Packs/Day Years [...] CDT EXAM: [place] VIDEO SWALLOW STUDY LOCATION: [facility] DATE/TIME: 11/19/2020 11:56 AM INDICATION: Difficulty swallowing. [...] original. EXAM: FL VIDEO SWALLOW STUDY LOCATION: [facility] DATE/TIME: 11/19/2020 11:56 AM INDICATION: Difficulty swallowing. [...] dose documented in this encounter Care Teams Director Of Infection Prevention Relationship Specialty Start Date End Date Samantha Stauffer MD PCP - General Family Practice 12/12/191999 [place] [address] documented as of this encounter
--- OUTSIDE RECORDS SUMMARY | 2022-04-21 03:52 | XMS_ITS | Encounter Summary ---
:1955 Author Organization [facility] Address [address], [place] [address] Care Team Providers Name Role Phone Samantha Stauffer MD Primary Care Provider [phone] Reason for Visit Reason Comments QUESTIONS, GENERAL Encounter Details Date Type Department Care Team Description 07/24/2020 Telephone [facility] Walker, GENERAL Neuroscience Center AMD Neurology [address] [facility] [address] [place] [phone] (Wo rk) Social History Tobacco Use Types [...] a follow up appt with him at [facility]. Jeannette Porras RN IER LOADER Maximo Julio - 07/24/2020 9:50 AM CST Patient is requesting a call back regarding questions he has about covid vaccine and also about DBS battery. Please call back when available, Thank you. Maximo Julio 07/24/2020, 9:52 AM IER LOADER documented in this encounter Plan of Treatment Not on filedocumented as of this encounter Visit Diagnoses Not on filedocumented in this encounter Care Teams Cop Examiner Relationship Specialty Start Date End Date Samantha Stauffer MD PCP - General Family Practice 12/12/191999 [place] [address] documented as of this encounter
--- OUTSIDE RECORDS SUMMARY | 2022-04-21 03:52 | XMS_ITS | Encounter Summary ---
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 Call [facility] Rehabilitation at . We suggest you call your health insurance company about your coverage an d benefits for this appointment. Encounter Details Date Type Department Care Team Description 11/13/2020 Office Visit Maria Esther Mckeon on's disease (HRC) (Primary Dx); Neuroscience Center MD Prem Dysphagia, unspecified type; Neurology [address] [facility] Dyskinesia due to Parkinson' s disease (HRC); [address] [place] [address] [place], [place] [phone] Social History Tobacco Use Types Packs/Day Years [...] is mentioned above, and others negative. MiniCog 08/24?? UPDRS (Unified Parkinson's Disease Rating Scale) 11/13/2020 [...] the endoscopy isplanned. If all those things turnaround planner to be okay then I would have [...] we will arrange for programming session at [facility]. Next 6. Otherwise follow-up with me in [...] fall documented in this encounter Care Teams Buckle Sorter Relationship Specialty Start Date End Date Samantha Stauffer MD PCP - General Family Practice 12/12/191999 [place] [address] documented as of this encounter
--- OUTSIDE RECORDS SUMMARY | 2022-04-21 03:52 | XMS_ITS | Encounter Summary ---
:1955 Author Organization [facility] Address [address], [place] [address] Care Team Providers Name Role Phone Lurdes Thomas MD Primary Care Provider Reason for Referral Consult/Transfer Care (Routine) - Closed Specialty Diagnoses / Procedures Referred By Contact Refer red To Contact Neurosurgery Diagnoses Parkinson's disease (HRC) Maria Esther Phan MD McIver, Jon I, MD [address] [facility] [address] [place], [place] [address] [place] [address] Fax: Referral ID Status Reason Start Date Expiration Date Visits Requ ested Visits Authorized [id number] Closed 11/13/2019 02/11/2021 1 1 Scheduling Instructions Your provider has recommended an appoint ment with [facility]. You may call [phone], option 2 to schedule your appointment. We suggest you call your health insurance nicole carlos about your coverage and benefits for this appointment. Reason for Visit Reason Comments FYI DBS battery Encounter Details Date Type Department Care Team Description 11/13/2019 Telephone Maria Esther Mckeon (DB S battery) Neuroscience Center MD Prem Neurology [address] [facility] [address] [place] [address] [phone] (Wo rk) Social History Tobacco Use Types [...] him if he mixed systems (I.egot a Wheeler Sci battery, with Medtronic lead) this is [...] to call and schedule the battery replacement. [facility] nursing, can you facilitate with Dr. Kaiser's [...] Primary documented in this encounter Care Teams Call Center Operations Manager Relationship Specialty Start Date End Date Lurdes Thomas MD PCP - General 06/18/14 12/11/19 documented as of this encounter
--- OUTSIDE RECORDS SUMMARY | 2022-04-21 03:52 | XMS_ITS | Encounter Summary ---
:1955 Author Organization [employer] Address [address] [place] [address] Care Team Providers Name Role Phone Samantha Stauffer MD Primary Care Provider [phone] Reason for Visit Reason Comments QUESTIONS, GENERAL Battery Encounter Details Date Type Department Care Team Description 12/07/2020 Telephone [facility] Walker, GENERAL Neuroscience Center MD Prem (Battery ) Neurology [address] [facility] [address] [place] [address] [place], [place] [phone] (Wo rk) Social History Tobacco Use Types Packs/Day Years Used Date Smoking Tobacco: Never Smokeless Tobacco: Never Alcohol Use Standard Drinks/Week Comments Not Currently 0 (1 standard drink = 0.6 oz pure alcoho l) Sex Assigned at Date Recorded Not on file documented as of this encounter Nursing Notes Chloé Denny - 12/09/2020 3:53 PM CDT RN called pt's spouse back (ph. [phone]) to relay Dr. Phan' recommendations. Verbalizes understanding and they will adjust pt's RYTARY to tid first. RN also sent recommendations via Netechy message. Encouraged to call back with any [...] Gocovri or took extra Rytary accidentally. Thanks! Vanesa Lemos - 12/07/2020 12:36 PM CDT [...] on filedocumented in this encounter Care Teams Tripper Relationship Specialty Start Date End Date Samantha Stauffer MD PCP - General Family Practice 12/12/191999 [place] [address] documented as of this encounter
--- OUTSIDE RECORDS SUMMARY | 2022-04-21 03:53 | XMS_ITS | Encounter Summary ---
:1955 Author Organization [employer] Address [address] [address] Care Team Providers Name Role Phone Lurdes Thomas MD Primary Care Provider Reason for Visit Reason Comments Spine Lumbar Encounter Details Date Type Department Care Team Description 06/10/2015 Office Visit [facility] Chris Cain, Right -sided low back Therapy Aurora Briggs, PT pain with right-sided [address] granados (Primary Dx) [place] [address] [place], [place] [phone] (Wo rk) Social History Tobacco Use Types Packs/Day Years Used Date Smoking Tobacco: Never Smokeless Tobacco: Never Alcohol Use Standard Drinks/Week Comments Yes 0 (1 standard drink = 0.6 oz pure alcoho l) Sex Assigned at Date Recorded Not on file documented as of this encounter Progress Notes Aurora Hickey, PT - 06/23/2015 2:04 PM CST Encounter date: 06/10/2015 [facility] : 1955 [facility] Note Visit Number: 7 Initial Certification Period: 05/19/2015 to 08/17/15 Referring Provider: Dr. Maria Esther Phan Visit Diagnosis/ICD: Diagnosis ICD-10-CM ICD-9-CM 1. Right-sided low back pain with right-sided sciatica M54.41 724.3 Precautions: none Onset/Referral Date: 05/19/2015 Orders: Evaluate and treat. [facility] Services: Programming RN, Social Work, [...] above OBJ info and- therapeutic ex (CPT 43369)12 min hip series of stretches to combine some of the exercises he has been doing reviewed flexion in step standing, left, than right. He still gets a little glitch on right side side glide left single leg raise in hands/knees position, 5 sec hold manual therapy (CPT 56991) 10 min In left sanchez position, MET to low T and lumbar spine ultrasound (CPT 53041) 11 min US to right LB for 10 min, 1.3 w/cm2, continuous manual therapy (CPT 35436) 12 min soft tissue mobilization use of director of product marketing tool to T and lumbar parsspinals Timed [...] manual therapy, exercise progression, modalities if needed. BENDER documented in this encounter Plan of Treatment Not on filedocumented as of this encounter Visit Diagnoses Diagnosis Right-sided low back pain with right-beck ed sciatica (HRC) - Primary documented in this encounter Care Teams Houseperson Relationship Specialty Start Date End Date Lurdes Thomas MD PCP - General 06/18/14 12/11/19 documented as of this encounter
--- OUTSIDE RECORDS SUMMARY | 2022-04-21 03:53 | XMS_ITS | Encounter Summary ---
:1955 Author Organization [employer] Address [address] [address] Care Team Providers Name Role Phone Lurdes Thomas MD Primary Care Provider Reason for Visit Reason Comments Spine Lumbar Encounter Details Date Type Department Care Team Description 06/30/2015 Office Visit [place] [facility] Chris Cain, Right -sided low back Therapy Aurora Briggs, PT pain with right-sided [address] granados (Primary Dx) [place] [address] [place], [place] [phone] (Wo rk) Social History Tobacco Use Types Packs/Day Years Used Date Smoking Tobacco: Never Smokeless Tobacco: Never Alcohol Use Standard Drinks/Week Comments Yes 0 (1 standard drink = 0.6 oz pure alcoho l) Sex Assigned at Date Recorded Not on file documented as of this encounter Progress Notes Aurora Hickey, PT - 06/30/2015 11:02 AM CST Encounter date: 06/30/2015 [facility] 1955 [facility] Visit Number: 11 Initial Certification Period: 05/19/2015 to 08/17/15 Referring Provider: Dr. Maria Esther Phan Visit Diagnosis/ICD: Diagnosis ICD-10-CM ICD-9-CM 1. Right-sided low back pain with right-sided sciatica M54.41 724.3 Precautions: none Onset/Referral Date: 05/19/2015 Orders: Evaluate and treat. [facility] Services: Programming RN, Social Work, [...] above OBJ info and- therapeutic ex (CPT 26315)20 min reviewed flexion in step standing, left, [...] PA pressure on spinal segments ultrasound (CPT 43949) 12 min US to right LB for 10 min, 1.3 w/cm2, continuous manual therapy (CPT 08108) 15 min joint mobilization to lumbar spine gr 3 soft tissue mobilization, and use of cafeteria counter attendant tool to T and lumbar paraspinals [...] has not contacted his insurance company yet ES PLAYER documented in this encounter Plan of Treatment Not on filedocumented as of this encounter Visit Diagnoses Diagnosis Right-sided low back pain with right-beck ed sciatica (HRC) - Primary documented in this encounter Care Teams Senior Software Analyst Relationship Specialty Start Date End Date Lurdes Thomas MD PCP - General 06/18/14 12/11/19 documented as of this encounter
--- OUTSIDE RECORDS SUMMARY | 2022-04-21 03:53 | XMS_ITS | Encounter Summary ---
:1955 Author Organization [email or web address] Address [address] [address] Care Team Providers Name Role Phone Lurdes Thomas MD Primary Care Provider Reason for Visit Reason Comments Spine Lumbar Encounter Details Date Type Department Care Team Description 06/04/2015 Office Visit [place] [facility] Chris Cain, Right -sided low back Therapy Aurora Briggs, PT pain with right-sided [address] granados (Primary Dx) [place] [address] [place], [place] [phone] (Wo rk) Social History Tobacco Use Types Packs/Day Years Used Date Smoking Tobacco: Never Smokeless Tobacco: Never Alcohol Use Standard Drinks/Week Comments Yes 0 (1 standard drink = 0.6 oz pure alcoho l) Sex Assigned at Date Recorded Not on file documented as of this encounter Progress Notes Aurora Hickey, PT - 06/23/2015 2:07 PM CST Encounter date: 06/04/2015 [facility] 1955 [facility] Visit Number: [...] above OBJ info and- manual therapy (CPT 30742) 10 min joint mobilization, supine end range thrust technique, right and left, repeated twice therapeutic ex (CPT 70621)25 min added hip series of stretches to combine some of the exercises he has been doing ultrasound (CPT 10000) 10 min US to right LB for [...] manual therapy, exercise progression, modalities if needed. ICATIONS ADMINISTRATOR documented in this encounter Plan of Treatment Not on filedocumented as of this encounter Visit Diagnoses Diagnosis Right-sided low back pain with right-beck ed sciatica (HRC) - Primary documented in this encounter Care Teams Board Writer Relationship Specialty Start Date End Date uLrdes Thomas MD PCP - General 06/18/14 12/11/19 documented as of this encounter
--- OUTSIDE RECORDS SUMMARY | 2022-04-21 03:53 | XMS_ITS | Encounter Summary ---
:1955 Author Organization [facility] Address [address] [place] [address] Care Team Providers Name Role Phone Lurdes Thomas MD Primary Care Provider Reason for Visit Reason Onset Date Comments Refill 07/31/2018 Encounter Details Date Type Department Care Team Description 07/31/2018 Refill [facility] Neuroscience Para Maria Esther newberry MD Refill Center Neurology [address] [facility] [address] [place] [address] [place] [address] [phone] Social History Tobacco Use Types Packs/Day Years [...] filedocumented in this encounter Care Teams Senior Consumer Insights Consultant Relationship Specialty Start Date End Date Lurdes Thomas MD PCP - General 06/18/14 12/11/19 documented as of this encounter
--- OUTSIDE RECORDS SUMMARY | 2022-04-21 03:53 | XMS_ITS | Encounter Summary ---
:1955 Author Organization [employer] Address [address] [address] Care Team Providers Name Role Phone Lurdes Thomas MD Primary Care Provider Reason for Visit Reason Comments Spine Lumbar Encounter Details Date Type Department Care Team Description 06/23/2015 Office Visit [place] [facility] Chris Cain, Right -sided low back Therapy Aurora Briggs, PT pain with right-sided [address] granados (Primary Dx) [place] [address] [place], [place] [phone] (Wo rk) Social History Tobacco Use Types Packs/Day Years Used Date Smoking Tobacco: Never Smokeless Tobacco: Never Alcohol Use Standard Drinks/Week Comments Yes 0 (1 standard drink = 0.6 oz pure alcoho l) Sex Assigned at Date Recorded Not on file documented as of this encounter Progress Notes Aurora Hickey, PT - 06/23/2015 2:00 PM CST Encounter date: 06/23/2015 [facility] 1955 [facility] Visit Number: 10 Initial Certification Period: 05/19/2015 to 08/17/15 Referring Provider: Dr. Maria Esther Phan Visit Diagnosis/ICD: Diagnosis ICD-10-CM ICD-9-CM 1. Right-sided low back pain with right-sided sciatica M54.41 724.3 Precautions: none Onset/Referral Date: 05/19/2015 Orders: Evaluate and treat. [facility] Services: Programming RN, Social Work, [...] above OBJ info and- therapeutic ex (CPT 58840)10 min reviewed flexion in step standing, left, than right. He still gets a little glitch on right side - in 1/2 sitting, hip hiking right for QL. He reports feeling an excellent stretch with this, no pain. ultrasound (CPT 26746) 12 min US to right LB for 10 min, 1.3 w/cm2, continuous manual therapy (CPT 50658) 15 min soft tissue mobilization, and use of stitch bonding machine drawer in tool to T and lumbar paraspinals Timed [...] has not contacted his insurance company yet RONMENTAL SAMPLING TECHNICIAN documented in this encounter Plan of Treatment Not on filedocumented as of this encounter Visit Diagnoses Diagnosis Right-sided low back pain with right-beck ed sciatica (HRC) - Primary documented in this encounter Care Teams Director External Communications Relationship Specialty Start Date End Date Lurdes Thomas MD PCP - General 06/18/14 12/11/19 documented as of this encounter
--- OUTSIDE RECORDS SUMMARY | 2022-04-21 03:53 | XMS_ITS | Encounter Summary ---
:1955 Author [facility] Address [address], [place] [address] Care Team Providers Name Role Phone Lurdes Thomas MD Primary Care Provider Reason for Referral Therapies (Routine) - Closed Specialty Diagnoses / Procedures Referred By Contact Refer red To Contact Diagnoses Dysphagia, unspecified type Parkinson's disease (HRC) Maria Esther Phan MD [address] [place], [place] [address] Referral ID Status Reason Start Date Expiration Date Visits Requ ested Visits Authorized [id number] Closed 06/17/2019 08/16/2019 1 1 Scheduling Instructions Your provider has recommended an appoint ment with a [facility]rap[facility]. Please stop at the clinic check out desk for as sistance with scheduling or if you prefer to call for your appointment you may call [facility] at [phone]. We suggest you call your [facility] insurance company about your coverage and benefits for this appointment. AND MAKEUP DESIGNER Reason for Visit Reason Comments REPORTING, NEW SYMPTOMS Encounter Details Date Type Department Care Team Description 06/17/2019 [facility] Prem SYMPTOMS Neurology [address] [address] [place], [place] [phone] (Wo rk) Social History Tobacco Use Types [...] no call back needed at this time. AND MAKEUP DESIGNER Matt Cates RN - 06/17/2019 10:13 AM CST Nurse called Natasha and relayed message from Dr. Phan to her. She stated understanding and had no further questions at this time. She was in agreement with plan. Matt Cates RN 06/17/2019, 10:15 AM AND MAKEUP DESIGNER Maria Esther Phan MD - 06/17/2019 10:05 AM CST They should have his PCP check him and possily do a CXR if indicated. The we can have him see speechtherapy for swallow evaluation - order entered. AND MAKEUP DESIGNER Maximo Julio - 06/17/2019 8:16 AM CST Patients Natasha, calling to request call back regarding symptoms she is concerned about. She states the patient has been coughing for the past week and she thought it was due to a cold however, now she thinks it is from aspiration from Parkinson's. Please call her back when available, Thank you. AND MAKEUP DESIGNER documented in this encounter Plan of Treatment Scheduled Referrals Name Type Priority Associated Diagnoses Order S chedule Speech Therapy Referral Routine Dysphagia, unspe cified type Ordered: 06/17/2019 Parkinson's disease (HRC) documented as of this encounter Visit Diagnoses Diagnosis Dysphagia, unspecified type - Primary Parkinson's disease (HRC) documented in this encounter Care Teams Plastics Production Machine Operator Relationship Specialty Start Date End Date Lurdes Thomas MD PCP - General 06/18/14 12/11/19 documented as of this encounter
--- OUTSIDE RECORDS SUMMARY | 2022-04-21 03:53 | XMS_ITS | Encounter Summary ---
:1955 Author Organization [facility] Address [address] [place] [address] Care Team Providers Name Role Phone Lurdes Thomas MD Primary Care Provider Reason for Visit Reason Comments Medication Questions Encounter Details Date Type Department Care Team Description 06/07/2018 Telephone [facility] Medicat ion Questions [facility] MD Prem Neurology [address] [facility] [address] [place] [address] [place], [place] [phone] (Wo rk) Social History Tobacco Use Types [...] of Dr. Phan' recommendations. Jeannette Porras RN GER INSPECTION Maria Esther Phan MD - 06/08/2018 11:45 AM CST No problem with lansoprazole. GER INSPECTION Yenny Ray - 06/07/2018 4:40 PM CST Pt natasha calling stating that pt was given a new medication by his PCP for acid reflex but they would like to know if Dr. Phan is ok with pt taking this medication. Pt was started on lansoprazole to treat the acid reflex. Please Advise GER INSPECTION documented in this encounter Plan of Treatment Not on filedocumented as of this encounter Visit Diagnoses Not on filedocumented in this encounter Care Teams Car Builder Relationship Specialty Start Date End Date Lurdes Thomas MD PCP - General 06/18/14 12/11/19 documented as of this encounter
--- OUTSIDE RECORDS SUMMARY | 2022-04-21 03:53 | XMS_ITS | Encounter Summary ---
:1955 Author Organization [employer] Address [address], [place] [address] Care Team Providers Name Role Phone Lurdes Thomas MD Primary Care Provider Reason for Visit Reason Comments Refill Encounter Details Date Type Department Care Team Description 07/31/2018 Telephone [facility] Shawnee Hilario, RN Refill [address] corina Lam[place] [address] Social History Tobacco Use Types Packs/Day Years [...] Hilario RN - 07/31/2018 10:11 AM CDT [facility] calling for refill on [employer]. To be faxed to [phone]. He is seen at [facility] not [facility]. Please take care of. documented in this encounter Plan of Treatment Not on filedocumented as of this encounter Visit Diagnoses Not on filedocumented in this encounter Care Teams Furniture Builder Relationship Specialty Start Date End Date Lurdes Thomas MD PCP - General 06/18/14 12/11/19 documented as of this encounter
--- OUTSIDE RECORDS SUMMARY | 2022-04-21 03:53 | XMS_ITS | Encounter Summary ---
:1955 [facility] Address [address] [address] Care Team Providers Name Role Phone Lurdes Thomas MD Primary Care Provider Reason for Visit Reason Onset Date Comments Refill 06/03/2019 Encounter Details Date Type Department Care Team Description 06/03/2019 Refill [facility] Neuroscience Para Maria Esther newberry MD Refill Center Neurology [address] [facility] [address] [place] [address] [place] [address] [phone] Social History Tobacco Use Types Packs/Day Years [...] Qty: 90 tabs Last Refill: not given District Agent/Appt Center: Was the pharmacy entered into the Preferred Pharmacy field? Yes Abi Laguhlin 06/03/2019, 1:58 PM ASE AND TECHNICAL RECORDS CLERK documented in this encounter Plan of Treatment Not on filedocumented as of this encounter Visit Diagnoses Not on filedocumented in this encounter Care Teams Bale Stacker Relationship Specialty Start Date End Date Lurdes Thomas MD PCP - General 06/18/14 12/11/19 documented as of this encounter
--- OUTSIDE RECORDS SUMMARY | 2022-04-21 03:53 | XMS_ITS | Encounter Summary ---
:1955 Author Organization [facility] Address [address] [address] Care Team Providers Name Role Phone Lurdes Thomas MD Primary Care Provider Reason for Referral Procedure/Equipment (Routine) - Incomplete Specialty Diagnoses / Procedures Referred By Contact Refer red To Contact Diagnoses Dysphagia, oropharyngeal phase Maria Esther Phan MD Procedures [place] Video Swallow Study [address] [place], [place] [address] Referral ID Status Reason Start Date Expiration Date Visits V isits Requested Authorized [id number] Incomplete 06/24/2019 09/22/2020 1 1 CUTTER Reason for Visit Reason Comments Parkinson's Disease Therapies (Routine) - Closed Specialty Diagnoses / Procedures Referred By Contact Refer red To Contact Diagnoses Dysphagia, unspecified type Parkinson's disease (HRC) Maria Esther Phan MD [facility] [place], [place] [address] Referral ID Status Reason Start Date Expiration Date Visits Requ ested Visits Authorized [id number] Closed 06/17/2019 08/16/2019 1 1 Encounter Details Date Type Department Care Team Description 06/24/2019 Office Visit [facility] Fong, Dysphagia, [facility] MANAGER PARK oropharyngeal phase Speech Therapy [address] (Primary Dx) [address] [place], [place] [id number] [place] [address] [phone] Social History Tobacco Use Types Packs/Day Years Used Date Smoking Tobacco: Never Smokeless Tobacco: Never Alcohol Use Standard Drinks/Week Comments Yes 0 (1 standard drink = 0.6 oz pure alcoho l) Sex Assigned at Date Recorded Not on file documented as of this encounter Progress Notes [facility] Morgan SLP - 06/24/2019 3:00 PM CST Pt seen, referred for MBSS CUTTER documented in this encounter Plan of Treatment Not on filedocumented as of this encounter Results FL Video Swallow Study (06/24/2019 4:10 PM SAND CUTTER) Anatomical Region Laterality Modality Neck, Chest Radio Fluoroscopy Specimen (Source) Anatomical Collection Method Collection Time Re ceived Time Location / / Volume Laterality 06/24/2019 4:10 PM SAND CUTTER Narrative 06/24/2019 5:11 PM SAND CUTTER EXAM: [place] VIDEO SWALLOW STUDY LOCATION: [facility] DATE/TIME: 06/24/2019 4:10 PM INDICATION: Difficulty [...] EXAM: FL VIDEO SWALLOW STUDY LOCATION: [facility] DATE/TIME: 06/24/2019 4:10 PM INDICATION: Difficulty [...] as described above. Maria Esther Phan MD [facility] documented in this encounter Visit Diagnoses Diagnosis Dysphagia, oropharyngeal phase - Primary Dysphagia, oropharyngeal phase documented in this encounter Care Teams Design Manager Relationship Specialty Start Date End Date Lurdes Thomas MD PCP - General 06/18/14 12/11/19 documented as of this encounter
--- OUTSIDE RECORDS SUMMARY | 2022-04-21 03:53 | XMS_ITS | Encounter Summary ---
:1955 Author Organization [employer] Address [address] [place] [address] Care Team Providers Name Role Phone Lurdes Thomas MD Primary Care Provider Reason for Visit Reason Comments Prior Authorization Request Encounter Details Date Type Department Care Team Description 08/03/2018 Telephone [facility] Maria Esther Phan [facility] MD Prem Request Neurology [address] [facility] [address] [place] [address] [place], [place] [phone] Social History Tobacco Use Types Packs/Day Years [...] filedocumented in this encounter Care Teams Production Metal Sprayer Relationship Specialty Start Date End Date Lurdes Thomas MD PCP - General 06/18/14 12/11/19 documented as of this encounter
--- OUTSIDE RECORDS SUMMARY | 2022-04-21 03:53 | XMS_ITS | Encounter Summary ---
:1955 Author Organization [employer] Address [address] [address] Care Team Providers Name Role Phone Lurdes Thomas MD Primary Care Provider Reason for Visit Reason Comments Spine Lumbar Encounter Details Date Type Department Care Team Description 06/18/2015 Office Visit [place] [facility] Chris Cain, Right -sided low back Therapy Aurora Briggs, PT pain with right-sided [address] granados (Primary Dx) [place] [address] [place], [place] [phone] (Wo rk) Social History Tobacco Use Types Packs/Day Years Used Date Smoking Tobacco: Never Smokeless Tobacco: Never Alcohol Use Standard Drinks/Week Comments Yes 0 (1 standard drink = 0.6 oz pure alcoho l) Sex Assigned at Date Recorded Not on file documented as of this encounter Progress Notes Aurora Hickey, PT - 06/23/2015 2:02 PM CST Encounter date: 06/18/2015 [facility] 1955 [facility] Visit Number: 9 Initial Certification Period: 05/19/2015 to 08/17/15 Referring Provider: Dr. Maria Esther Phan Visit Diagnosis/ICD: Diagnosis ICD-10-CM ICD-9-CM 1. Right-sided low back pain with right-sided sciatica M54.41 724.3 Precautions: none Onset/Referral Date: 05/19/2015 Orders: Evaluate and treat. [facility] Services: Programming RN, Social Work, [...] above OBJ info and- therapeutic ex (CPT 03310)20 min side glides left reviewed flexion in step standing, left, than right. He still gets a little glitch on right side single leg raise in hands/knees position, 5 sec hold - in 1/2 sitting, hip hiking right for QL. He reports feeling an excellent stretch with this, no pain. ultrasound (CPT 46600) 11 min US to right LB for 10 min, 1.3 w/cm2, continuous manual therapy (CPT 84948) 12 min soft tissue mobilization, and use of rotary screen printing machine operator tool to T and lumbar paraspinals [...] therapy beyondinitial 6 that are set up E LINING CURER documented in this encounter Plan of Treatment Not on filedocumented as of this encounter Visit Diagnoses Diagnosis Right-sided low back pain with right-beck ed sciatica (HRC) - Primary documented in this encounter Care Teams Gluing Crew Leader Relationship Specialty Start Date End Date Lurdes Thomas MD PCP - General 06/18/14 12/11/19 documented as of this encounter
--- OUTSIDE RECORDS SUMMARY | 2022-04-21 03:53 | XMS_ITS | Encounter Summary ---
:1955 Author Organization [employer] Address [address] [place] [address] Care Team Providers Name Role Phone Lurdes Thomas MD Primary Care Provider Reason for Visit Reason Comments QUESTIONS, GENERAL Encounter Details Date Type Department Care Team Description 07/06/2017 Telephone [place] [facility] Shawnee Hilario, RN QUESTIONS, GENERAL [address] corina Lam[place] [address] Social History Tobacco Use Types Packs/Day Years [...] seen next and get his battery checked. NILE COURT JUDGE documented in this encounter Plan of Treatment Not on filedocumented as of this encounter Visit Diagnoses Not on filedocumented in this encounter Care Teams Quarrying Specialist Relationship Specialty Start Date End Date Lurdes Thomas MD PCP - General 06/18/14 12/11/19 documented as of this encounter
--- OUTSIDE RECORDS SUMMARY | 2022-04-21 03:53 | XMS_ITS | Encounter Summary ---
:1955 Author Organization [employer] Address [address], [place] [address] Care Team Providers Name Role Phone Lurdes Thomas MD Primary Care Provider Reason for Visit Reason Comments Spine Lumbar Encounter Details Date Type Department Care Team Description 05/26/2015 Office Visit [place] [facility] Chris Cain, Right -sided low back Therapy Aurora Briggs, PT pain with right-sided [address] granados (Primary Dx) [place] [address] [place], [place] [phone] (Wo rk) Social History Tobacco Use Types Packs/Day Years Used Date Smoking Tobacco: Never Smokeless Tobacco: Never Alcohol Use Standard Drinks/Week Comments Yes 0 (1 standard drink = 0.6 oz pure alcoho l) Sex Assigned at Date Recorded Not on file documented as of this encounter Progress Notes Aurora Hickey, PT - 05/26/2015 10:30 AM CST Encounter date: 05/26/2015 Pt : 1955 [facility] Physical Therapy Progress Note Visit Number: 2 Initial Certification Period: 05/19/2015 to 08/17/15 Referring Provider: Dr. Maria Esther Phan Visit Diagnosis/ICD: Diagnosis ICD-10-CM ICD-9-CM 1. Right-sided low back pain with right-sided sciatica M54.41 724.3 Precautions: none Onset/Referral Date: 05/19/2015 Reason for Referral: -Outpatient PT. Orders: Evaluate and treat. [facility] Services: Programming RN, Social Work, therapy in the past Exacerbation Date: 04/21/2015 Last Referring MD Visit: 05/19/2015 SUBJECTIVE: Andrew is new to me today, initially assessed at [facility], and referred to [facility] for convenience, and orthopedic care for back [...] with REIL Treatment/Education Today: therapeutic ex (CPT 67209)15 min time spent with orthopedic assessment manual therapy (CPT 17486) 15 min in prone, general mobilization. afterwards, (-) prone knee flexion test, but pain with transitional movements In supine, end range rotational thrust to the right, repeated twice, and to the left, with cavitation. Afterwards, no pain with supine to sit, and sit to stand. still is shifted, but no pain therapeutic ex (CPT 58127) 15 min Added for HEP: supine DKTC, [...] can see what will work for him ESTATE TRANSACTION COORDINATOR documented in this encounter Plan of Treatment Not on filedocumented as of this encounter Visit Diagnoses Diagnosis Right-sided low back pain with right-beck ed sciatica (HRC) - Primary documented in this encounter Care Teams Arts Therapist Relationship Specialty Start Date End Date Lurdes Thomas MD PCP - General 06/18/14 12/11/19 documented as of this encounter
--- OUTSIDE RECORDS SUMMARY | 2022-04-21 03:53 | XMS_ITS | Encounter Summary ---
:1955 Author Organization [employer] Address [address], [place] [address] Care Team Providers Name Role Phone Lurdes Thomas MD Primary Care Provider Reason for Visit Reason Comments Spine Lumbar Encounter Details Date Type Department Care Team Description 06/08/2015 Office Visit [facility] Chris Cain, Right -sided low back Therapy Aurora Briggs, PT pain with right-sided [address] granados (Primary Dx) [place] [address] [place], [place] [phone] (Wo rk) Social History Tobacco Use Types Packs/Day Years Used Date Smoking Tobacco: Never Smokeless Tobacco: Never Alcohol Use Standard Drinks/Week Comments Yes 0 (1 standard drink = 0.6 oz pure alcoho l) Sex Assigned at Date Recorded Not on file documented as of this encounter Progress Notes Aurora Hickey, PT - 06/23/2015 2:05 PM CST Encounter date: 06/08/2015 [facility] 1955 [facility] Visit Number: 6) Initial Certification Period: 05/19/2015 to 08/17/15 Referring Provider: Dr. Maria Esther Phan Visit Diagnosis/ICD: Diagnosis ICD-10-CM ICD-9-CM 1. Right-sided low back pain with right-sided sciatica M54.41 724.3 Precautions: none Onset/Referral Date: 05/19/2015 Orders: Evaluate and treat. [facility] Services: Programming RN, Social Work, [...] above OBJ info and- manual therapy (CPT 73880) 10 min joint mobilization, supine end range thrust technique, right and left, repeated twice therapeutic ex (CPT 44883)25 min hip series of stretches to combine some of the exercises he has been doing added flexion in step standing, left, than right side glide left added single leg raise in hands/knees position, 5 sec hold ultrasound (CPT 70450) 12 min US to right LB for [...] manual therapy, exercise progression, modalities if needed. NOSTIC RADIOLOGIST documented in this encounter Plan of Treatment Not on filedocumented as of this encounter Visit Diagnoses Diagnosis Right-sided low back pain with right-beck ed sciatica (HRC) - Primary documented in this encounter Care Teams Service Cashier Relationship Specialty Start Date End Date Lurdes Thomas MD PCP - General 06/18/14 12/11/19 documented as of this encounter
--- OUTSIDE RECORDS SUMMARY | 2022-04-21 03:53 | XMS_ITS | Encounter Summary ---
:1955 Author Organization [employer] Address [address], [place] [address] Care Team Providers Name Role Phone Lurdes Thomas MD Primary Care Provider Reason for Visit Reason Comments Spine Lumbar Encounter Details Date Type Department Care Team Description 06/02/2015 Office Visit [facility] Chris Cain, Right -sided low back Therapy Aurora Briggs, PT pain with right-sided [address] granados (Primary Dx) [place] [address] [place], [place] [phone] (Wo rk) Social History Tobacco Use Types Packs/Day Years Used Date Smoking Tobacco: Never Smokeless Tobacco: Never Alcohol Use Standard Drinks/Week Comments Yes 0 (1 standard drink = 0.6 oz pure alcoho l) Sex Assigned at Date Recorded Not on file documented as of this encounter Progress Notes Aurora Hickey, PT - 06/02/2015 10:07 AM CST Encounter date: 06/02/2015 Pt : 1955 [facility] Physical Therapy Progress Note Visit Number: 3 Initial Certification Period: 05/19/2015 to 08/17/15 Referring Provider: Dr. Maria Esther Phan Visit Diagnosis/ICD: Diagnosis ICD-10-CM ICD-9-CM 1. Right-sided low back pain with right-sided sciatica M54.41 724.3 Precautions: none Onset/Referral Date: 05/19/2015 Reason for Referral: -Outpatient PT. Orders: Evaluate and treat. [facility] Services: Programming RN, Social Work, [...] with REIL Treatment/Education Today: therapeutic ex (CPT 62239)5 min time spent with orthopedic assessment ultrasound (CPT 89919) 12 min US to right LB for 10 min, 1.3 w/cm2, continous therapeutic ex (CPT 42235) 30 min Reviewed and practiced his HEP: [...] manual therapy, exercise progression, modalities if needed. LESS SALES EXPERT documented in this encounter Plan of Treatment Not on filedocumented as of this encounter Visit Diagnoses Diagnosis Right-sided low back pain with right-beck ed sciatica (HRC) - Primary documented in this encounter Care Teams Information Consultant Relationship Specialty Start Date End Date Lurdes Thomas MD PCP - General 06/18/14 12/11/19 documented as of this encounter
--- OUTSIDE RECORDS SUMMARY | 2022-04-21 03:53 | XMS_ITS | Encounter Summary ---
:1955 Author Organization [employer] Address [address] [address] Care Team Providers Name Role Phone Lurdes Thomas MD Primary Care Provider Reason for Visit Reason Comments Device Check Consult/Transfer Care (Routine) - Closed Specialty Diagnoses / Procedures Referred By Contact Refer red To Contact Diagnoses Parkinson's disease (HRC) Maria Esther Phan MD [address] [place], [place] [address] Referral ID Status Reason Start Date Expiration Date Visits Requ ested Visits Authorized [id number] Closed 08/08/2017 11/07/2018 1 1 Encounter Details Date Type Department Care Team Description 08/08/2017 Nursing Visit [facility] Shawnee Hilario, Parkinson's disease (HRC) (P rimary Dx); [address] RN Encounter for fitting and adjustment of [place] [address] Social History Tobacco Use Types [...] cord) documented in this encounter Care Teams Brick Washer Relationship Specialty Start Date End Date Lurdes Thomas MD PCP - General 06/18/14 12/11/19 documented as of this encounter
--- OUTSIDE RECORDS SUMMARY | 2022-04-21 03:53 | XMS_ITS | Encounter Summary ---
:1955 [facility] Address [address] [address] Care Team Providers Name Role Phone Lurdes Thomas MD Primary Care Provider Encounter Details Date Type Department Care Team Description 04/12/2019 Telephone [facility] Princess Phan, Center Neurology [address] [place] [address] [place] [address] [phone] (Wo rk) Social History Tobacco Use Types [...] folder as COURT Laughlin 04/12/2019, 2:20 PM ER SERVICES REPRESENTATIVE documented in this encounter Plan of Treatment Not on filedocumented as of this encounter Visit Diagnoses Not on filedocumented in this encounter Care Teams Drawing Machine Operator Relationship Specialty Start Date End Date Lurdes Thomas MD PCP - General 06/18/14 12/11/19 documented as of this encounter
--- OUTSIDE RECORDS SUMMARY | 2022-04-21 03:53 | XMS_ITS | Encounter Summary ---
:1955 Author Organization [employer] Address [address] [place] [address] Care Team Providers Name Role Phone Lurdes Thomas MD Primary Care Provider Reason for Visit Reason Comments QUESTIONS, GENERAL MRI with DBS Encounter Details Date Type Department Care Team Description 10/18/2018 Telephone [facility] Shawnee Hilario, RN QUESTIONS, GENERAL (MRI [address]aga with DBS) [place] [address] Social History Tobacco Use Types Packs/Day Years Used Date Smoking Tobacco: Never Smokeless Tobacco: Never Alcohol Use Standard Drinks/Week Comments Yes 0 (1 standard drink = 0.6 oz pure alcoho l) Sex Assigned at Date Recorded Not on file documented as of this encounter Nursing Notes Shawnee Hilario, RN - 10/18/2018 4:25 PM CDT There was no return phone call to [place] today about getting system checked. Will send FYI to and then close encounter. Shawnee Hilario RN - 10/18/2018 9:06 AM CDT Patient and significant other calling because patient needs an MRI of his lumbar spine and was supposed to have this morning at [facility]. They wanted to fax us a form to complete verifying his DBS system is MRI eligible. We have not seen patient here for well over a year, he see's Dr. Phan over at the [facility] in [place]. I offered 3 options to them. They could come here and have the check. They could ask their doctor to order MRI over at [facility] and someone there can check it or they could contact [employer] and see if anyone could go out to [place] to check. She will call us back and let us know what they decide. documented in this encounter Plan of Treatment Not on filedocumented as of this encounter Visit Diagnoses Not on filedocumented in this encounter Care Teams Installer Interior Assemblies Relationship Specialty Start Date End Date Lurdes Thomas MD PCP - General 06/18/14 12/11/19 documented as of this encounter
--- OUTSIDE RECORDS SUMMARY | 2022-04-21 03:53 | XMS_ITS | Encounter Summary ---
:1955 Author Organization [employer] Address [address] [address] Care Team Providers Name Role Phone Lurdes Thomas MD Primary Care Provider Reason for Visit Reason Comments Spine Lumbar Encounter Details Date Type Department Care Team Description 06/16/2015 Office Visit [place] [facility] Chris Cain, Right -sided low back Therapy Aurora Briggs, PT pain with right-sided [address] granados (Primary Dx) [place] [address] [place], [place] [phone] (Wo rk) Social History Tobacco Use Types Packs/Day Years Used Date Smoking Tobacco: Never Smokeless Tobacco: Never Alcohol Use Standard Drinks/Week Comments Yes 0 (1 standard drink = 0.6 oz pure alcoho l) Sex Assigned at Date Recorded Not on file documented as of this encounter Progress Notes Aurora Hickey, PT - 06/23/2015 2:03 PM CST Encounter date: 06/16/2015 Pt : 1955 [facility] Note Visit Number: 8 Initial Certification Period: 05/19/2015 to 08/17/15 Referring Provider: Dr. Maria Esther Phan Visit Diagnosis/ICD: Diagnosis ICD-10-CM ICD-9-CM 1. Right-sided low back pain with right-sided sciatica M54.41 724.3 Precautions: none Onset/Referral Date: 05/19/2015 Orders: Evaluate and treat. [facility] Services: Programming RN, Social Work, [...] above OBJ info and- therapeutic ex (CPT 02044)20 min Discussed hip series of stretches to [...] stretch with this, no pain. ultrasound (CPT 16706) 11 min US to right LB for 10 min, 1.3 w/cm2, continuous manual therapy (CPT 18399) 12 min soft tissue mobilization, and use of constitutional law professor tool to T and lumbar parsspinals Timed [...] therapy beyondinitial 6 that are set up [employer] documented in this encounter Plan of Treatment Not on filedocumented as of this encounter Visit Diagnoses Diagnosis Right-sided low back pain with right-beck ed sciatica (HRC) - Primary documented in this encounter Care Teams [employer] Project Manager Relationship Specialty Start Date End Date Lurdes Thomas MD PCP - General 06/18/14 12/11/19 documented as of this encounter
--- OUTSIDE RECORDS SUMMARY | 2022-04-21 03:53 | XMS_ITS | Encounter Summary ---
:1955 Author Organization [employer] Address [address] [address] Care Team Providers Name Role Phone Lurdes Thomas MD Primary Care Provider Reason for Visit Reason Comments Research Encounter Details Date Type Department Care Team Description 05/21/2015 Telephone [facility] Maria Esther Phan MD Research [facility] [place], [place] [address] [place] [address] (Wo rk) Social History Tobacco [...] [facility] would like to pursue the study and understands that enrollment may close before he hasbeen stable for 60 days on a different anti-depressant. Zoloft is an acceptable medication. Pharmacyhas been updated. Please write specific instructions on this switch. TRONICS DEPARTMENT MANAGER documented in this encounter Plan of Treatment Not on filedocumented as of this encounter Visit Diagnoses Not on filedocumented in this encounter Care Teams Final Inspector Relationship Specialty Start Date End Date Lurdes Thomas MD PCP - General 06/18/14 12/11/19 documented as of this encounter
--- OUTSIDE RECORDS SUMMARY | 2022-04-21 03:53 | XMS_ITS | Encounter Summary ---
:1955 Author Organization [employer] Address [address] [place] [address] Care Team Providers Name Role Phone Lurdes Thomas MD Primary Care Provider Reason for Visit Reason Comments Other Encounter Details Date Type Department Care Team Description 12/07/2017 Telephone [facility] Doris Arauz, RN Other [address] corina Lamas [place], [place] [address] Social History Tobacco Use Types Packs/Day Years Used Date Smoking Tobacco: Never Smokeless Tobacco: Never Alcohol Use Standard Drinks/Week Comments Yes 0 (1 standard drink = 0.6 oz pure alcoho l) Sex Assigned at Date Recorded Not on file documented as of this encounter Nursing Notes Doris Arauz, RN - 12/07/2017 2:28 PM CDT Received call from [employer]. They have been trying to call Andrew to schedule shipment of [employer] and unable to reach him. Called and LM for Andrew asking him to call [employer] at [phone]. [employer] will mail a letter also, asking him to call them. documented in this encounter Plan of Treatment Not on filedocumented as of this encounter Visit Diagnoses Not on filedocumented in this encounter Care Teams Health Navigator Relationship Specialty Start Date End Date Lurdes Thomas MD PCP - General 06/18/14 12/11/19 documented as of this encounter
--- OUTSIDE RECORDS SUMMARY | 2022-04-21 03:53 | XMS_ITS | Encounter Summary ---
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 [place] [address] [place], [place] [phone] [address] Social History Tobacco Use Types Packs/Day [...] without abnormal responses. There are no tremors. Dlapkf-ttdo-ngnday and ennb-lsbi-wtok are accurate. There is minimal if any [...] unspecified documented in this encounter Care Teams Management Advisor Relationship Specialty Start Date End Date Lurdes Thomas MD PCP - General 06/18/14 12/11/19 documented as of this encounter
--- OUTSIDE RECORDS SUMMARY | 2022-04-21 03:53 | XMS_ITS | Encounter Summary ---
:1955 Author Organization [employer] Address [address] [address] Care Team Providers Name Role Phone Lurdes Thomas MD Primary Care Provider Reason for Visit Reason Comments Spine Lumbar Encounter Details Date Type Department Care Team Description 05/28/2015 Office Visit [place] [facility] Chris Cain, Right -sided low back Therapy Aurora Briggs, PT pain with right-sided [address] granados (Primary Dx) [place] [address] [place], [place] [phone] (Wo rk) Social History Tobacco Use Types Packs/Day Years Used Date Smoking Tobacco: Never Smokeless Tobacco: Never Alcohol Use Standard Drinks/Week Comments Yes 0 (1 standard drink = 0.6 oz pure alcoho l) Sex Assigned at Date Recorded Not on file documented as of this encounter Progress Notes Aurora Hickey, PT - 05/28/2015 12:14 PM CST Encounter date: 05/28/2015 Pt : [address] [facility] Physical Therapy Progress Note Visit Number: [...] with REIL Treatment/Education Today: therapeutic ex (CPT 04219)15 min time spent with orthopedic assessment manual therapy (CPT 33735) 15 min in prone, general mobilization. In supine, end range rotational thrust to the right, repeated twice, and to the left, with cavitation. Afterwards, no pain with supine to sit, and sit to stand. still is shifted, but no pain ultrasound (CPT 30199) 12 min Added: US to right LB for 10 min, 1.3 w/cm2, continous therapeutic ex (CPT 17327) 15 min Reviewed and practiced his HEP: [...] Advised to use lumbar support with sitting ONAL MERCHANDISING MANAGER documented in this encounter Plan of Treatment Not on filedocumented as of this encounter Visit Diagnoses Diagnosis Right-sided low back pain with right-beck ed sciatica (HRC) - Primary documented in this encounter Care Teams Tonger Relationship Specialty Start Date End Date Lurdes Thomas MD PCP - General 06/18/14 12/11/19 documented as of this encounter
--- OUTSIDE RECORDS SUMMARY | 2022-04-21 03:53 | XMS_ITS | Encounter Summary ---
:1955 Author Organization [employer] Address [address] [address] Care Team Providers Name Role Phone Lurdes Thomas MD Primary Care Provider Reason for Visit Reason Comments Paperwork [facility] Encounter Details Date Type Department Care Team Description 08/09/2017 Notes/Orders [facility] Doris Arauz, RN [address] [place] [address] Social History Tobacco Use Types Packs/Day Years Used Date Smoking Tobacco: Never Smokeless Tobacco: Never Alcohol Use Standard Drinks/Week Comments Yes 0 (1 standard drink = 0.6 oz pure alcoho l) Sex Assigned at Date Recorded Not on file documented as of this encounter Progress Notes Doris Arauz RN - 08/09/2017 2:43 PM CDT Faxed completed [employer] paperwork and Rx to [employer]. FAX: [phone] documented in this encounter Plan of Treatment Not on filedocumented as of this encounter Visit Diagnoses Not on filedocumented in this encounter Care Teams Laundry Machine Tender Relationship Specialty Start Date End Date Lurdes Thomas MD PCP - General 06/18/14 12/11/19 documented as of this encounter
--- OUTSIDE RECORDS SUMMARY | 2022-04-21 03:53 | XMS_ITS | Encounter Summary ---
:1955 Author Organization [employer] Address [address] [address] Care Team Providers Name Role Phone Lurdes Thomas MD Primary Care Provider Reason for Visit Reason Comments Spine Lumbar Encounter Details Date Type Department Care Team Description 07/02/2015 Office Visit [facility] Chris Cani, Right -sided low back Therapy Aurora Briggs, PT pain with right-sided [address] granados (Primary Dx) [place] [address] [place], [place] [phone] (Wo rk) Social History Tobacco Use Types Packs/Day Years Used Date Smoking Tobacco: Never Smokeless Tobacco: Never Alcohol Use Standard Drinks/Week Comments Yes 0 (1 standard drink = 0.6 oz pure alcoho l) Sex Assigned at Date Recorded Not on file documented as of this encounter Progress Notes Aurora Hickey, PT - 07/02/2015 11:56 AM CST Encounter date: 07/02/2015 [facility] 1955 [facility] Visit Number: 12 Initial Certification Period: 05/19/2015 to 08/17/15 Referring Provider: Dr. Maria Esther Phan Visit Diagnosis/ICD: Diagnosis ICD-10-CM ICD-9-CM 1. Right-sided low back pain with right-sided sciatica M54.41 724.3 Precautions: none Onset/Referral Date: 05/19/2015 Orders: Evaluate and treat. 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
--- OUTSIDE RECORDS SUMMARY | 2022-04-21 03:53 | XMS_ITS | Encounter Summary ---
:1955 Author Organization [employer] Address [address] [place] [address] Care Team Providers Name Role Phone Lurdes Thomas MD Primary Care Provider Reason for Visit Reason Comments Refill Encounter Details Date Type Department Care Team Description 06/03/2019 Refill [facility] Maria Esther Reis MD Refill Center Neurology [address] [facility] [address] [place] [address] [place] [address] [phone] Social History Tobacco Use Types Packs/Day Years Used Date Smoking Tobacco: Never Smokeless Tobacco: Never Alcohol Use Standard Drinks/Week Comments Yes 0 (1 standard drink = 0.6 oz pure alcoho l) Sex Assigned at Date Recorded Not on file documented as of this encounter Nursing Notes Rachel Brown RN - 06/03/2019 1:11 PM CST Incorrect provider. Rachel Brown RN CTOR DATA ARCHITECTURE documented in this encounter Plan of Treatment Not on filedocumented as of this encounter Visit Diagnoses Not on filedocumented in this encounter Care Teams Machine Applicator Cementer Relationship Specialty Start Date End Date Lurdes Thomas MD PCP - General 06/18/14 12/11/19 documented as of this encounter
--- OUTSIDE RECORDS SUMMARY | 2022-04-21 03:53 | XMS_ITS | Encounter Summary ---
:1955 Author Organization [employer] Address [address] [place] [address] Care Team Providers Name Role Phone Lurdes Thomas MD Primary Care Provider Reason for Visit Reason Comments Prior Authorization Request Encounter Details Date Type Department Care Team Description 09/11/2018 Telephone [facility] Maria Esther Phan [facility] MD Prem Request Neurology [address] [facility] [address] [place] [address] [place], [place] [phone] [address] Social History Tobacco Use Types Packs/Day Years [...] PA was approved from 08/14/18 to 09/13/19. PA#[id number] Called [employer] and told them PA was approved. They will expedite shipping and get to pt by Monday. Copy of PA approval sent to [facility]. Abi Laughlin - 09/13/2018 4:41 PM CDT Patient's spouse called regarding below message She can be contacted at [phone] - spouse's number or her own number [phone] Abi Laughlin 09/13/2018, 4:42 PM Maria Esther Phan MD - 09/13/2018 3:46 PM CDT Jeannette, I went to the website, will not allow me to start an account as I apparently already have on, I asked for a password reset, and received no e-mail to reset. I called this agency ([facility] -whomever they might be) and [...] 137 mg ER capsules 1. Go to [employer] and click Enter a Ann 2. Enter the pt's Last name, and the Ann Ann: [id number] Pt's Last name: Poly : 1955 3. Complete th form and click: Send to Plan for approval documented in this encounter Plan of Treatment Not on filedocumented as of this encounter Visit Diagnoses Not on filedocumented in this encounter Care Teams Care Professional Relationship Specialty Start Date End Date Lurdes Thomas MD PCP - General 06/18/14 12/11/19 documented as of this encounter
--- OUTSIDE RECORDS SUMMARY | 2022-04-21 03:53 | XMS_ITS | Encounter Summary ---
:1955 Author Organization [employer] Address [address], [place] [address] Care Team Providers Name Role Phone Lurdes Thomas MD Primary Care Provider Reason for Referral Consult/Transfer Care (Routine) - Closed Specialty Diagnoses / Procedures Referred By Contact Refer red To Contact Diagnoses Parkinson's disease (HR) Maria Esther Phan MD [address] [place], [place] [address] Referral ID Status Reason Start Date Expiration Date Visits Requ ested Visits Authorized [id number] Closed 08/08/2017 11/07/2018 1 1 Scheduling Instructions Your provider has recommended an appoint ment with [facility]. You may call [phone] or marino bardales [phone] to schedule your appointment. If you do [...] [facility] Maria Esther Phan Parkinson's disease [address] Amaro MD ([facility]) (Primary Dx) Drive [address] 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 documented in this encounter Progress Notes Maria Esther Phan MD - 08/08/2017 12:00 PM CDT NAME: DEIDRE PANG MR#: [id number] CSN: [id number] AUTHENTICATING CLINICIAN: Maria Esther Phan MD CONFIRM #: [id number] LOC: 13662 CLINIC PROGRESS NOTE DATE OF VISIT: 08/08/2017 : 1955 LOCATION: [place]. HISTORY OF PRESENT ILLNESS: Mr. Pang is [...] lower extremities distally.Coordination: No tremor seen today. Bkpkdj-aqfb-hnnuiz is adequate. There is npfz-sn-ybvhcocz dyskinesia, more so on the left than [...] sooner if necessary. SAP:MEDQ C: CONFIRM #: [id number] documented in this encounter Plan of Treatment Scheduled Referrals Name Type Priority Associated Diagnoses Order S chedule DBS PROGRAMMING CONSULT Referral Routine Parkinson's disea se Ordered: 08/08/2017 (AMB) (HRC) documented as of this encounter Visit Diagnoses Diagnosis Parkinson's disease (HRC) - Primary documented in this encounter Care Teams Rn Advice Relationship Specialty Start Date End Date Lurdes Thomas MD PCP - General 06/18/14 12/11/19 documented as of this encounter
--- OUTSIDE RECORDS SUMMARY | 2022-04-21 03:53 | XMS_ITS | Encounter Summary ---
:1955 Author Organization [employer] Address [address], [place] [address] Care Team Providers Name Role Phone Lurdes Thomas MD Primary Care Provider Reason for Visit Reason Comments Spine Lumbar Encounter Details Date Type Department Care Team Description 07/09/2015 Office Visit [place] [facility] Chris Cain, Right -sided low back Therapy Aurora Briggs, PT pain with right-sided [address] granados (Primary Dx) [place] [address] [place], [place] [phone] (Wo rk) Social History Tobacco Use Types Packs/Day Years Used Date Smoking Tobacco: Never Smokeless Tobacco: Never Alcohol Use Standard Drinks/Week Comments Yes 0 (1 standard drink = 0.6 oz pure alcoho l) Sex Assigned at Date Recorded Not on file documented as of this encounter Progress Notes Aurora Hickey, PT - 07/09/2015 8:51 AM CST Encounter date: 07/09/2015 Pt : [address] [facility] Physical Therapy Progress Note Visit Number: 13 Initial Certification Period: 05/19/2015 to 08/17/15 Referring Provider: Dr. Maria Esther Phan Visit Diagnosis/ICD: Diagnosis ICD-10-CM ICD-9-CM 1. Right-sided low back pain with right-sided sciatica M54.41 724.3 Precautions: none Onset/Referral Date: 05/19/2015 Orders: Evaluate and treat. 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
--- OUTSIDE RECORDS SUMMARY | 2022-04-21 03:53 | XMS_ITS | Encounter Summary ---
:1955 Author Organization [employer] Address [address] [place] [address] Care Team Providers Name Role Phone Lurdes Thomas MD Primary Care Provider Reason for Visit Reason Comments QUESTIONS, GENERAL MRI and DBS Encounter Details Date Type Department Care Team Description 10/22/2018 Telephone [place] [facility] Shawnee Hilario, RN QUESTIONS, GENERAL (MRI [address] arriaga and DBS) [place] [address] Social History Tobacco Use Types Packs/Day Years [...] back. They have an appointment On at [facility] and he is receiving his care over [...] filedocumented in this encounter Care Teams Senior Product Consultant Relationship Specialty Start Date End Date Lurdes Thomas MD PCP - General 06/18/14 12/11/19 documented as of this encounter
--- OUTSIDE RECORDS SUMMARY | 2022-04-21 03:53 | XMS_ITS | Encounter Summary ---
:1955 Author Organization [email or web address] Address [address] [place] [address] Care Team Providers Name Role Phone Lurdes Thomas MD Primary Care Provider Reason for Visit Reason Comments Prior Authorization For Medication Gocovri Encounter Details Date Type Department Care Team Description 08/15/2017 Telephone [facility] Doris Arauz, Prior Authorization For [address] car body mechanic (Gocovri) [place], [place] [address] Social History Tobacco Use Types Packs/Day Years Used Date Smoking Tobacco: Never Smokeless Tobacco: Never Alcohol Use Standard Drinks/Week Comments Yes 0 (1 standard drink = 0.6 oz pure alcoho l) Sex Assigned at Date Recorded Not on file documented as of this encounter Nursing Notes Doris Arauz RN - 08/30/2017 5:34 PM CDT Anderw called to say he got the Gocovri in the mail and it is working well for him. He was appreciative of all the help. Doris Arauz RN - 08/15/2017 4:28 PM CDT Received notice that prior authorization is needed. Request was initiated over the phone. Pt's Insurer: Eleazar Insurer's contact #: [phone] Name of Drug: Goocovri 137mg Dx for Drug: dyskinesia due to PD medications Tried/failed drugs: Amantadine Medication was approved. Approval dates: 07/16/17 to 08/15/18 Case#: [id number] FYI documented in this encounter Plan of Treatment Not on filedocumented as of this encounter Visit Diagnoses Not on filedocumented in this encounter Care Teams Scalper Operator Relationship Specialty Start Date End Date Lurdes Thomas MD PCP - General 06/18/14 12/11/19 documented as of this encounter
--- OUTSIDE RECORDS SUMMARY | 2022-04-21 03:53 | XMS_ITS | Encounter Summary ---
:1955 Author Organization [employer] Address [address] [address] Care Team Providers Name Role Phone Lurdes Thomas MD Primary Care Provider Reason for Visit Reason Comments Spine Lumbar Encounter Details Date Type Department Care Team Description 07/16/2015 Office Visit [place] [facility] Chris Cain, Right -sided low back Therapy Aurora Briggs, PT pain with right-sided [address] granados (Primary Dx) [place] [address] [place], [place] [phone] (Wo rk) Social History Tobacco Use Types [...] Onset/Referral Date: 05/19/2015 Orders: Evaluate and treat. [facility] Services: Programming RN, Social Work, [...] above OBJ info and- therapeutic ex (CPT 39699)15 min reviewed /discussed HEP, home management, body mechanics with lifting, turning, pivoting ultrasound (CPT 95874) 12 min US to right LB for 10 min, 1.3 w/cm2, continuous manual therapy (CPT 29902) 18 min joint mobilization to lumbar spine [...] 75- 85% improvement Plan: will DC to [facility] at this time, encouraged Andrew to call if any questions, or return if needed Encounter Date: 07/16/2015 Pt : 1955 [facility] Physical Therapy Discharge Summary Patient was seen [...] to return to therapy if symptoms recur. SUPPORT TECHNICIAN documented in this encounter Plan of Treatment Not on filedocumented as of this encounter Visit Diagnoses Diagnosis Right-sided low back pain with right-beck ed sciatica (HRC) - Primary documented in this encounter Care Teams Wood Scaler Relationship Specialty Start Date End Date Lurdes Thomas MD PCP - General 06/18/14 12/11/19 documented as of this encounter
--- OUTSIDE RECORDS SUMMARY | 2022-04-21 03:53 | XMS_ITS | Encounter Summary ---
:1955 Author Organization [employer] Address [address] [address] Care Team Providers Name Role Phone Lurdes Thomas MD Primary Care Provider Encounter Details Date Type Department Care Team Description 05/06/2016 Notes/Orders [place] [facility] P, OTR/L [address] [place], [place] [address] [facility] [phone] [place] [address] (Wo rk) Social History Tobacco Use Types Packs/Day Years Used Date Smoking Tobacco: Never Smokeless Tobacco: Never Alcohol Use Standard Drinks/Week Comments Yes 0 (1 standard drink = 0.6 oz pure alcoho l) Sex Assigned at Date Recorded Not on file documented as of this encounter Progress Notes Tylor Martin OTR/L - 05/06/2016 9:55 AM CST Client did [...] physician. RODRIGUE Gandhi/Stefan 05/06/2016, 9:56 AM ' OR ERP CONSULTANT documented in this encounter Plan of Treatment Not on filedocumented as of this encounter Visit Diagnoses Not on filedocumented in this encounter Care Teams Mold Changer Relationship Specialty Start Date End Date Lurdes Thomas MD PCP - General 06/18/14 12/11/19 documented as of this encounter
--- OUTSIDE RECORDS SUMMARY | 2022-04-21 03:53 | XMS_ITS | Encounter Summary ---
:1955 [facility] Address [address], [place] [address] Care Team Providers Name Role Phone Lurdes Thomas MD Primary Care Provider Encounter Details Date Type Department Care Team Description 05/09/2018 Telephone [facility] Princess Phan, Center Neurology [address] [place] [address] [place], [place] [address] (Wo rk) Social History Tobacco Use Types [...] action. Garret Soto RN 05/09/2018, 11:26 AM S EXECUTIVE INSURANCE Maria Esther Phan MD - 05/09/2018 11:18 AM CST francisca Combs please call and find out what this is about? S EXECUTIVE INSURANCE Nadia Persaud - 05/09/2018 9:19 AM CST CA took a call from express script stating-- need to clarify medication Rytary 04.16-619 caps. Please advise. Nadia Persaud 05/09/2018, 9:20 AM S EXECUTIVE INSURANCE documented in this encounter Plan of Treatment Not on filedocumented as of this encounter Visit Diagnoses Not on filedocumented in this encounter Care Teams Java Performance Engineer Relationship Specialty Start Date End Date Martha, Lurdes Bermudez MD PCP - General 06/18/14 12/11/19 documented as of this encounter
--- OUTSIDE RECORDS SUMMARY | 2022-04-21 03:53 | XMS_ITS | Encounter Summary ---
:1955 Author Organization [employer] Address [address], [place] [address] Care Team Providers Name Role Phone Lurdes Thomas MD Primary Care Provider Encounter Details Date Type Department Care Team Description 05/05/2016 Notes/Orders [place] [facility] C[facility], [address] cor[address] [place], [place] [address] [address] [phone] [place] [address] (Wo rk) Social History Tobacco [...] treatmentorder should be obtained from the physician. OFILM CLERK documented in this encounter Plan of Treatment Not on filedocumented as of this encounter Visit Diagnoses Not on filedocumented in this encounter Care Teams Reimbursement Auditor Relationship Specialty Start Date End Date Lurdes Thomas MD PCP - General 06/18/14 12/11/19 documented as of this encounter
--- OUTSIDE RECORDS SUMMARY | 2022-04-21 03:53 | XMS_ITS | Encounter Summary ---
:1955 Author Organization [facility] Address [address] [address] Care Team Providers Name Role Phone Lurdes Thomas MD Primary Care Provider Reason for Visit Reason Comments QUESTIONS, GENERAL Encounter Details Date Type Department Care Team Description 05/04/2018 Telephone [facility] Esther Walker, GENERAL Neuro[facility] Center MD Prem Neurology [address] [facility] [address] [facility] [place] [phone] (Wo rk) Social History Tobacco Use Types [...] advise . Jeannette Michael 05/04/2018, 10:51 AM RATORY APPARATUS GLASS GRINDER documented in this encounter Plan of Treatment Not on filedocumented as of this encounter Visit Diagnoses Not on filedocumented in this encounter Care Teams Driveway Sealer Relationship Specialty Start Date End Date Lurdes Thomas MD PCP - General 06/18/14 12/11/19 documented as of this encounter
--- OUTSIDE RECORDS SUMMARY | 2022-04-21 03:53 | XMS_ITS | Encounter Summary ---
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 [address] [place], [place] [phone] [address] Social History Tobacco Use Types Packs/Day Years Used Date Smoking Tobacco: Never Smokeless Tobacco: Never Alcohol Use Standard Drinks/Week Comments Yes 0 (1 standard drink = 0.6 oz pure alcoho l) Sex Assigned at Date Recorded Not on file documented as of this encounter Last Filed Vital Signs Vital Sign Reading Time Taken Comments Blood Pressure 118/73 05/04/2018 3:45 PM TELEGRAPH SERVICE RATER Pulse 85 05/04/2018 3:45 PM TELEGRAPH SERVICE RATER Temperature - - Respiratory Rate - - Oxygen Saturation - - Inhaled Oxygen Concentration - - Weight 80.1 kg (176 lb 9.6 oz) 05/04/2018 3:45 PM TELEGRAPH SERVICE RATER Height 185.4 cm (6' 1) 05/04/2018 3:45 PM TELEGRAPH SERVICE RATER Body Mass Index 23.3 05/04/2018 3:45 PM TELEGRAPH SERVICE RATER documented in this encounter Patient Instructions Patient InstructionsRichard Phan MD - 05/04/2018 3:45 PM CST A good site to look for clinical trials in Parkinson's is clinicaltrials.gov GRAPH SERVICE RATER documented in this encounter Progress Notes Richard Phan MD - 05/04/2018 12:00 AM CST DEIDRE PANG CSN: [id number] CLINIC NOTE NEUROLOGY PROGRESS NOTE DATE OF SERVICE: 05/04/2018 : 1955 CHIEF COMPLAINT: Followup Parkinson's. HISTORY OF PRESENT ILLNESS: Mr. Pang was seen in the company of his in followup of his Parkinson's. Last time I saw him was in July at [place]. He has done reasonably well since then. [...] without abnormal responses. There are no tremors. Gwjjbz-svyi-revslr and ffik-tuck-tgpr are accurate. There is minimal if any [...] minutes. Counseling time this visit: 15 minutes. 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
--- OUTSIDE RECORDS SUMMARY | 2022-04-21 03:53 | XMS_ITS | Encounter Summary ---
:1955 Author Organization [employer] Address [address], [place] [address] Care Team Providers Name Role Phone Lurdes Thomas MD Primary Care Provider Reason for Referral Specialty Diagnoses / Procedures Referred By Contact Refer red To Contact Maria Esther Phan MD [address] [place], [place] [address] Referral ID Status Reason Start Date Expiration Date Visits Requ ested Visits Authorized AGE ENGINEERING TECHNICIAN Reason for Visit Reason Comments Back Pain Encounter Details Date Type Department Care Team Description 05/19/2015 Initial Consult [place] [facility] Jordana Ham ht-sided low back Therapy M, PT pain with right-sided [address] [phone] Social History Tobacco Use Types Packs/Day Years [...] Therapy Parkinson Evaluation/Plan of Care [facility] Initial Certification Period: 05/19/2015 to 08/17/15 Referring Provider: Dr. Maria Esther Phan Visit Diagnosis/ICD: Diagnosis ICD-10-CM ICD-9-CM 1. Right-sided low back pain with right-sided sciatica M54.41 724.3 Precautions: none Onset/Referral Date: 05/19/2015 Reason for Referral: -Outpatient PT. Orders: [facility]: Programming RN, Social Work, therapy in [...] to residence: Stairs to enter. -[facility] 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 Cooperative. Pleasant. [...] discussed therapist's recommendation to follow up at [facility] with orthopedic PT, provided pt with information regarding how to schedule follow up visit at their clinic, contacted [facility] to update them with transfer of [...] clinic closer to home for treatment with a r specialist. Pt to continue at [facility]. Pt would benefit from skilled PT for [...] Therapeutic exercise. Ultrasound. Interdisciplinary Referrals: PT at [facility], continue with POC Services Recommended: [...] 90 day(s). Total Treatment: 45 minutes The language pathologist is completed by the therapist and the referring clinician's electronic signature certifies medical necessity for the plan above. Completed by Jordana Ham PT License #: [id number] AGE ENGINEERING TECHNICIAN documented in this encounter Plan of Treatment Scheduled Referrals Name Type Priority Associated Diagnoses [facility] Referral Routine Right-sided low back edmond n Ordered: 05/19/2015, with right-sided sciatica Ex keagan: 05/19/2015 documented as of this encounter Visit Diagnoses Diagnosis Right-sided low back pain with right-beck ed sciatica (HRC) documented in this encounter Care Teams Cook Night Relationship Specialty Start Date End Date Lurdes Thomas MD PCP - General 06/18/14 12/11/19 documented as of this encounter
--- OUTSIDE RECORDS SUMMARY | 2022-04-21 03:54 | XMS_ITS | Encounter Summary ---
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 Discussed the process in general and provided [...] on filedocumented in this encounter Care Teams Real Estate Agent Relationship Specialty Start Date End Date Lurdes Thomas MD PCP - General 06/18/14 12/11/19 documented as of this encounter
--- OUTSIDE RECORDS SUMMARY | 2022-04-21 03:54 | XMS_ITS | Encounter Summary ---
:1955 Author Organization [employer] Address [address] [address] Care Team Providers Name Role Phone Lurdes Thomas MD Primary Care Provider Reason for Visit Reason Comments Follow-up Encounter Details Date Type Department Care Team Description 10/07/2014 Office Visit [facility] Parashos, Sotirios Paralysis agitans [address] MD (Primary Dx) Drive [address] [place], [place] S [address] [place], [place] [phone] (Wo rk) Social History Tobacco Use Types [...] Body Mass Index 27.18 07/08/2014 8:56 AM RECRUITING TEAM LEAD documented in this encounter Patient Instructions Patient [...] day. 2. I will have our social psychologist, Fabi Beverly contact you and your as [...] agitans documented in this encounter Care Teams Cobbler Mckay Relationship Specialty Start Date End Date Lurdes Thomas MD PCP - General 06/18/14 12/11/19 documented as of this encounter
--- OUTSIDE RECORDS SUMMARY | 2022-04-21 03:54 | XMS_ITS | Encounter Summary ---
:1955 Author Organization [employer] Address [address] [address] Care Team Providers Name Role Phone Lurdes Thomas MD Primary Care Provider Reason for Referral Specialty Diagnoses / Procedures Referred By Contact Refer red To Contact Maria Esther Phan MD [address] [place], [place] [address] Referral ID Status Reason Start Date Expiration Date Visits Requ ested Visits Authorized Reason for Visit Reason Comments Balance/gait Dysfunction Encounter Details Date Type Department Care Team Description 11/04/2014 Initial Consult [place] [facility] Katalina Laughlin normality of gait (Primary Dx); Therapy L, PT Paralysis agitans; [address] [facility] [place] [phone] Social History Tobacco Use Types Packs/Day Years [...] 1955 Physical Therapy Parkinson Evaluation/Plan of Care [facility] Initial Certification Period: 11/04/2014 to 02/02/15 Referring Provider: Dr. Maria Esther Phan Visit Diagnosis/ICD: Diagnosis (ICD9) ICD-9-CM ICD-10-CM 1. Abnormality of gait 781.2 R26.9 2. Paralysis agitans (HCC) 332.0 G20 3. Personal history of fall V15.88 Z91.81 Precautions: Fall precautions, DBS Onset/Referral Date: 10/14/14 Reason for Referral: Outpatient PT. Orders: Evaluate and treat. [facility] Services: Occupational therapy. Speech therapy. Exacerbation Date: [...] to residence: Stairs to enter. -Living location: [facility]. -Living environment: Urban-mostly paved areas [...] Clear. Rapid speech, occasional stuttering. 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 Did recently travel to [place] on business, however. OBJECTIVE Blood Pressure: Symptoms: [...] Goal Achievement: Distance from center (lives in [place]) Rehab Prognosis: Good PLAN Planned Treatment: ADL/Home [...] 90 day(s). Total Treatment: 60 minutes The precision market insights is completed by the therapist and the referring clinician's electronic signature certifies medical necessity for the plan above. Katalina Laughlin PT Physical Therapist [place] License # [id number] documented in this encounter Plan of Treatment Scheduled Referrals Name Type Priority Associated Diagnoses Order S [facility] Physical Therapy Referral Routine Paralysis agitans (HRC) Ordered: 11/04/2014, Expires: 2014 documented as of this encounter Visit Diagnoses Diagnosis Abnormality of gait - Primary Paralysis agitans (HRC) Paralysis agitans Personal history of fall documented in this encounter Care Teams Mechanic Industrial Truck Relationship Specialty Start Date End Date Lurdes Thomas MD PCP - General 06/18/14 12/11/19 documented as of this encounter
--- OUTSIDE RECORDS SUMMARY | 2022-04-21 03:54 | XMS_ITS | Encounter Summary ---
:1955 Author Organization [employer] Address [address] [address] Care Team Providers Name Role Phone Lurdes Thomas MD Primary Care Provider Reason for Referral Specialty Diagnoses / Procedures Referred By Contact Refer red To Contact Maria Esther Phan MD [address], [place] [address] Referral ID Status Reason Start Date Expiration Date Visits Requ ested Visits Authorized ECTOR ALUMINUM BOAT Reason for Visit Reason Comments Device Check Encounter Details Date Type Department Care Team Description 05/19/2015 Nursing Visit [facility] Shawnee Hilario, PD (Parkinson's [address] RN disease) [place] [address] Social History Tobacco Use Types [...] implantation. Surgeon:Dr. Gonzalez Rowland Surgery date/location: 09/09/24 [place] Battery replacement: None Device type: Activa PC [...] Supervising provider: Dr. Maria Esther Hilario, RN ECTOR ALUMINUM BOAT documented in this encounter Plan of Treatment Scheduled Referrals Name Type Priority Associated Diagnoses Order S chedule DBS PROGRAMMING CONSULT Referral Routine PD (Parkinson's O rdered: 05/19/2015, (AMB) disease) ([facility]) Expires: 04/22 documented as of this encounter Visit Diagnoses Diagnosis PD (Parkinson's disease) ([facility]) Paralysis agitans documented in this encounter Care Teams Catshovel Driver Relationship Specialty Start Date End Date Lurdes Thomas MD PCP - General 06/18/14 12/11/19 documented as of this encounter
--- OUTSIDE RECORDS SUMMARY | 2022-04-21 03:54 | XMS_ITS | Encounter Summary ---
:1955 Author Organization [employer] Address [address], [place] [address] Care Team Providers Name Role Phone Lurdes Thomas MD Primary Care Provider Reason for Referral Specialty Diagnoses / Procedures Referred By Contact Refer red To Contact Maria Esther Phan MD [address] [place], [place] [address] Referral ID Status Reason Start Date Expiration Date Visits Requ ested Visits Authorized Reason for Visit Reason Comments VOICE, LOSS OF Encounter Details Date Type Department Care Team Description 11/04/2014 Initial Consult [facility] Casi De La Rosa (Primary Dx); Therapy J, PEDIATRIC ANESTHESIOLOGIST Dysphonia; [address] [place], [place] [phone] Social History Tobacco Use Types Packs/Day Years Used Date Smoking Tobacco: Never Smokeless Tobacco: Never Alcohol Use Standard Drinks/Week Comments Yes 0 (1 standard drink = 0.6 oz pure alcoho l) Sex Assigned at Date Recorded Not on file documented as of this encounter Progress Notes Casi De La Rosa, PEDIATRIC ANESTHESIOLOGIST - 11/04/2014 4:56 PM CDT Encounter Date: 11/04/2014 Patient : 1955 Speech Therapy - Parkinson's Disease Evaluation and Plan of Care [facility] Multidisciplinary Assessment Outpatient Evaluation [...] feels it is slightly worse. 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 He is on the phone [...] Any liquids. Previous Speech Therapy: Received at [facility] [place]. Evaluation 08/23/07 - WF. Evaluation 06/18/14 with recommendation for treatment. He did not follow up then. Is ready to pursue treatmentnow. Hand Dominance: Right Hearing Acuity: Within Functional Limits. Glasses: Reading glasses. Education: High school. 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 Marital Status: . Living Environment: [...] on his own. Recommendations: Individual speech therapy. [facility] Speech Goal: Client will be able to be understood without repetition 80% of the time in their daily environment as measured by patient report. [facility] Swallowing Goal: -None Digital Solution Architect Memory/Cognition Goal: None. Short Term Goals: -Independent [...] achieve intelligible loudness. Goals Achieved Today at [facility] [place]: -Client and/or family verbalized comprehension of today's [...] family in agreement with care plan. The apparel stock checker is completed by the therapist, and the [...] Dysarthria documented in this encounter Care Teams Conveyancer Relationship Specialty Start Date End Date Lurdes Thomas MD PCP - General 06/18/14 12/11/19 documented as of this encounter
--- OUTSIDE RECORDS SUMMARY | 2022-04-21 03:54 | XMS_ITS | Encounter Summary ---
:1955 Author Organization [employer] Address [address], [place] [address] Care Team Providers Name Role Phone Lurdes Thomas MD Primary Care Provider Reason for Referral Specialty Diagnoses / Procedures Referred By Contact Refer red To Contact Maria Esther Phan MD [address] [place], [place] [address] Referral ID Status Reason Start Date Expiration Date Visits Requ ested Visits Authorized Reason for Visit Reason Comments Device Check Encounter Details Date Type Department Care Team Description 10/07/2014 Nursing Visit [facility] Shawnee Hilario, RN [place] [address] ar[address] [place], [place] [address] Social History Tobacco Use [...] Dr. Gonzalez Rowland Surgery date/location: September 09 [facility] Device type: Activa PC Indication:Parkinsons [...] 150 therapy impedence 1159 current 1.816 Patient Aadc Plans Staff Officer Range: Left 2.1-2.7 Right 1.7-2.5. Total face [...] documented in this encounter Care Teams Retail Service Technician Relationship Specialty Start Date End Date Lurdes Thomas MD PCP - General 06/18/14 12/11/19 documented as of this encounter
--- OUTSIDE RECORDS SUMMARY | 2022-04-21 03:54 | XMS_ITS | Encounter Summary ---
:1955 Author Organization [employer] Address [address], [place] [address] Care Team Providers Name Role Phone Lurdes Thomas MD Primary Care Provider Reason for Visit Reason Comments Questions Encounter Details Date Type Department Care Team Description 07/09/2014 Telephone [facility] Sheri Pearson, RN Questions [address] corina Lamas [place], [place] [address] Social History Tobacco Use Types Packs/Day Years Used Date Smoking Tobacco: Never Smokeless Tobacco: Never Alcohol Use Standard Drinks/Week Comments Yes 0 (1 standard drink = 0.6 oz pure alcoho l) Sex Assigned at Date Recorded Not on file documented as of this encounter Nursing Notes Sheri Pearson, RN - 07/09/2014 1:11 PM CST I spoke with Andrew and he was wondering when he would hear from Dr Rowland's office about scheduling his surgery. I told him that paperwork was faxed to them yesterday and it takes them about a week before he will hear from them to schedule. B DRIVER documented in this encounter Plan of Treatment Not on filedocumented as of this encounter Visit Diagnoses Not on filedocumented in this encounter Care Teams Live Source Operator Relationship Specialty Start Date End Date Lurdes Thomas MD PCP - General 06/18/14 12/11/19 documented as of this encounter
--- OUTSIDE RECORDS SUMMARY | 2022-04-21 03:54 | XMS_ITS | Encounter Summary ---
:1955 Author Organization [employer] Address [address], [place] [address] Care Team Providers Name Role Phone Lurdes Thomas MD Primary Care Provider Encounter Details Date Type Department Care Team Description 09/23/2014 Notes/Orders [facility] Jordana Ham, PT [address] [place] [address] [place] [address] [phone] (Wo rk) Social History Tobacco Use Types Packs/Day Years Used Date Smoking Tobacco: Never Smokeless Tobacco: Never Alcohol Use Standard Drinks/Week Comments Yes 0 (1 standard drink = 0.6 oz pure alcoho l) Sex Assigned at Date Recorded Not on file documented as of this encounter Discharge Summaries Jordana Ham, PT - 09/23/2014 8:52 AM CDT Encounter Date: 09/23/2014 Pt : 1955 [facility] Physical Therapy Discharge Summary Patient was evaluated [...] on filedocumented in this encounter Care Teams Compression Molding Machine Operator Relationship Specialty Start Date End Date Lurdes Thomas MD PCP - General 06/18/14 12/11/19 documented as of this encounter
--- OUTSIDE RECORDS SUMMARY | 2022-04-21 03:54 | XMS_ITS | Encounter Summary ---
:1955 Author Organization [employer] Address [address] [place] [address] Care Team Providers Name Role Phone Lurdes Thomas MD Primary Care Provider Reason for Visit Reason Comments Forms Encounter Details Date Type Department Care Team Description 11/12/2014 Telephone [facility] Doris Arauz, RN Forms [address] [place], [place] [address] Social History Tobacco Use [...] on filedocumented in this encounter Care Teams Lanolin Plant Operator Relationship Specialty Start Date End Date Lurdes Thomas MD PCP - General 06/18/14 12/11/19 documented as of this encounter
--- OUTSIDE RECORDS SUMMARY | 2022-04-21 03:54 | XMS_ITS | Encounter Summary ---
:1955 Author Organization [employer] Address [address] [place] [address] Care Team Providers Name Role Phone Lurdes Thomas MD Primary Care Provider Reason for Visit Reason Comments No Show Encounter Details Date Type Department Care Team Description 03/03/2015 Telephone [facility] Shawnee Hilario, RN No Show [address] corina Lamas [place] [address] Social History Tobacco Use Types Packs/Day Years [...] and leave him a message. I called [phone] and it sounded like someone answered but no voice heard. Iwill try later. documented in this encounter Plan of Treatment Not on filedocumented as of this encounter Visit Diagnoses Not on filedocumented in this encounter Care Teams School Bus Inspector Relationship Specialty Start Date End Date Lurdes Thomas MD PCP - General 06/18/14 12/11/19 documented as of this encounter
--- OUTSIDE RECORDS SUMMARY | 2022-04-21 03:54 | XMS_ITS | Encounter Summary ---
:1955 Author Organization [employer] Address [address] [address] Care Team Providers Name Role Phone Lurdes Thomas MD Primary Care Provider Reason for Visit Reason Comments Post-Op Follow Up Call Encounter Details Date Type Department Care Team Description 09/23/2014 Telephone [facility] Shawnee Hilario, RN Post-Op Follow Up Call [address] corina Lamas [place] [phone] Social History Tobacco Use Types Packs/Day Years Used Date Smoking Tobacco: Never Smokeless Tobacco: Never Alcohol Use Standard Drinks/Week Comments Yes 0 (1 standard drink = 0.6 oz pure alcoho l) Sex Assigned at Date Recorded Not on file documented as of this encounter Nursing Notes Shawnee Hilario, RN - 09/29/2014 9:21 AM CDT Left [...] on filedocumented in this encounter Care Teams Warp Spooler Relationship Specialty Start Date End Date Lurdes Thomas MD PCP - General 06/18/14 12/11/19 documented as of this encounter
--- OUTSIDE RECORDS SUMMARY | 2022-04-21 03:54 | XMS_ITS | Encounter Summary ---
:1955 Author Organization [id number] Address [address] [place] [address] Care Team Providers Name Role Phone Lurdes Thomas MD Primary Care Provider Reason for Visit Reason Comments Back Pain Encounter Details Date Type Department Care Team Description 12/02/2014 Telephone [facility] Katalina Laughlin, PT Back Pain [address] [address] [place] [address] [place], [place] [phone] (Wo rk) Social History Tobacco Use [...] possible. Will send email to PT at [facility] to coordinate care. Katalina Laughlin PT Physical Therapist [place] License # [id number] documented in this encounter Plan of Treatment Not on filedocumented as of this encounter Visit Diagnoses Not on filedocumented in this encounter Care Teams Locomotive Operator Relationship Specialty Start Date End Date Lurdes Thomas MD PCP - General 06/18/14 12/11/19 documented as of this encounter
--- OUTSIDE RECORDS SUMMARY | 2022-04-21 03:54 | XMS_ITS | Encounter Summary ---
:1955 Author Organization [employer] Address [address] [place] [address] Care Team Providers Name Role Phone Lurdes Thomas MD Primary Care Provider Reason for Visit Reason Comments Questions Encounter Details Date Type Department Care Team Description 11/28/2014 Telephone [facility] Doris Arauz RN Questions [address] [place], [place] [address] Social History Tobacco Use [...] on filedocumented in this encounter Care Teams Training And Development Project Leader Relationship Specialty Start Date End Date Lurdes Thomas MD PCP - General 06/18/14 12/11/19 documented as of this encounter
--- OUTSIDE RECORDS SUMMARY | 2022-04-21 03:54 | XMS_ITS | Encounter Summary ---
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 He reports that he quit his job due to the stress and workplace environment. 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 He is trying to do parts of [...] information provided for future concerns or questions. SAMPLER documented in this encounter Plan of Treatment Not on filedocumented as of this encounter Visit Diagnoses Diagnosis Parkinson's disease ([facility]) - Primary documented in this encounter Care Teams Museum Preparator Relationship Specialty Start Date End Date Lurdes Thomas MD PCP - General 06/18/14 12/11/19 documented as of this encounter
--- OUTSIDE RECORDS SUMMARY | 2022-04-21 03:54 | XMS_ITS | Encounter Summary ---
:1955 Author Organization [employer] Address [address] [address] Care Team Providers Name Role Phone Lurdes Thomas MD Primary Care Provider Reason for Referral Specialty Diagnoses / Procedures Referred By Contact Refer red To Contact Maria Esther Phan MD [address] [place], [place] [address] Referral ID Status Reason Start Date Expiration Date Visits Requ ested Visits Authorized Reason for Visit Reason Comments Device Check Encounter Details Date Type Department Care Team Description 11/12/2014 Nursing Visit [facility] Doris Arauz, Paralysis [place] [id number] corina BERRY [place], [place] [address] Social History Tobacco Use [...] implantation. Surgeon: Dr. Gonzalez Rowland Surgery date/location: [facility], 09/09/14 Battery replacement: None Device type: Activia [...] check. Therapy impedence: 1410 on 1.579. Pt associate programmer range: 2.1-2.7 R STN: 10 Positive, 9 Negative, Amp: 2.1, PW: 60, Rate: 150. No problems found on 1.5v impedence check. Therapy impedence: 1149 on 1.831. Pt associate programmer range: 1.7-2.5 Final settings: No changes [...] agitans documented in this encounter Care Teams Warehouse Packaging Supervisor Relationship Specialty Start Date End Date Lurdes Thomas MD PCP - General 06/18/14 12/11/19 documented as of this encounter
--- OUTSIDE RECORDS SUMMARY | 2022-04-21 03:54 | XMS_ITS | Encounter Summary ---
:1955 Author Organization [employer] Address [address] [address] Care Team Providers Name Role Phone Lurdes Thomas MD Primary Care Provider Encounter Details Date Type Department Care Team Description 07/23/2014 Notes/Orders [facility] Millie Pedraza MD [address] [place], [place] [address] [address] [facility] [address] (Wo rk) Social History Tobacco Use Types [...] surgery, as he was getting some benefits. HT INFORMATION EXPEDITER documented in this encounter Plan of Treatment Not on filedocumented as of this encounter Visit Diagnoses Not on filedocumented in this encounter Care Teams Executive Account Manager Relationship Specialty Start Date End Date Lurdes Thomas MD PCP - General 06/18/14 12/11/19 documented as of this encounter
--- OUTSIDE RECORDS SUMMARY | 2022-04-21 03:54 | XMS_ITS | Encounter Summary ---
:1955 Author Organization [email or web address] Address [address], [place] [address] Care Team Providers Name Role Phone Lurdes Thomas MD Primary Care Provider Reason for Visit Reason Comments Social Service Encounter Details Date Type Department Care Team Description 10/09/2014 Telephone [facility] viceFabi Arzola LISW Social Service [address] [place], [place] [address] [facility] [phone] Social History Tobacco Use Types Packs/Day Years [...] own issues. [place]ided [place] familiarity with PD and a well-known clinic in [place]. Natasha stated she had time today to call and inquire about insurance and get an appointment set. She was appreciative of the resources and support from Dr Phan. documented in this encounter Plan of Treatment Not on filedocumented as of this encounter Visit Diagnoses Not on filedocumented in this encounter Care Teams B2B Outside Sales Representative Relationship Specialty Start Date End Date Serum, Lurdes C, MD PCP - General 06/18/14 12/11/19 documented as of this encounter
--- OUTSIDE RECORDS SUMMARY | 2022-04-21 03:54 | XMS_ITS | Encounter Summary ---
:1955 Author Organization [employer] Address [address], [place] [address] Care Team Providers Name Role Phone Lurdes Thomas MD Primary Care Provider Encounter Details Date Type Department Care Team Description 10/06/2014 Notes/Orders [facility] Shawnee Hilario, Paralysis agitans [address] RN (Primary D [place]) [place] [address] Social History Tobacco Use Types [...] agitans documented in this encounter Care Teams Cyber Security Architect Relationship Specialty Start Date End Date Lurdes Thomas MD PCP - General 06/18/14 12/11/19 documented as of this encounter
--- OUTSIDE RECORDS SUMMARY | 2022-04-21 03:54 | XMS_ITS | Encounter Summary ---
:1955 Author Organization [employer] Address [address] [place] [address] Care Team Providers Name Role Phone Lurdes Thomas MD Primary Care Provider Encounter Details Date Type Department Care Team Description 10/22/2014 Notes/Orders [facility] [address] Zhanna Pedraza MD Neurology [address] [facility] [address] [facility] [address] [place] [address] [phone] Social History Tobacco Use Types Packs/Day Years Used Date Smoking Tobacco: Never Smokeless Tobacco: Never Alcohol Use Standard Drinks/Week Comments Yes 0 (1 standard drink = 0.6 oz pure alcoho l) Sex Assigned at Date Recorded Not on file documented as of this encounter Progress Notes Millie Pedraza MD - 10/22/2014 4:43 PM CDT DBS TEAM MEETING: [employer] decided to pay for the procedure, which [...] on filedocumented in this encounter Care Teams Corporate Financial Analyst Relationship Specialty Start Date End Date Lurdes Thomas MD PCP - General 06/18/14 12/11/19 documented as of this encounter
--- OUTSIDE RECORDS SUMMARY | 2022-04-21 03:54 | XMS_ITS | Encounter Summary ---
:1955 Author Organization [employer] Address [address] [place] [address] Care Team Providers Name Role Phone Lurdes Thomas MD Primary Care Provider Reason for Visit Reason Comments Paperwork Encounter Details Date Type Department Care Team Description 09/15/2014 Telephone [facility] Doris Arauz RN Paperwork [address] [place], [place] [address] Social History Tobacco Use [...] She has a call into the insurance [employer] to try to resolve this. She provided [...] too if surgery is not covered. Doris Arauz, RN - 09/15/2014 4:59 PM CDT Doris [...] filedocumented in this encounter Care Teams Corporate Planning Manager Relationship Specialty Start Date End Date Lurdes Thomas MD PCP - General 06/18/14 12/11/19 documented as of this encounter
--- OUTSIDE RECORDS SUMMARY | 2022-04-21 03:54 | XMS_ITS | Encounter Summary ---
:1955 Author Organization [employer] Address [address], [place] [address] Care Team Providers Name Role Phone Lurdes Thomas MD Primary Care Provider Reason for Referral Specialty Diagnoses / Procedures Referred By Contact Refer red To Contact Maria Esther Phan MD [address] [place], [place] [address] Referral ID Status Reason Start Date Expiration Date Visits Requ ested Visits Authorized Reason for Visit Reason Comments Adl Problem Encounter Details Date Type Department Care Team Description 11/04/2014 Initial Consult Darrin Moore-d efined conditions(799.89) (Primary Dx); Occupational Therapy Tylor Bates, OTR/L Paralysis agitans [address] [facility] [place] [phone] Social History Tobacco Use Types Packs/Day Years Used Date Smoking Tobacco: Never Smokeless Tobacco: Never Alcohol Use Standard Drinks/Week Comments Yes 0 (1 standard drink = 0.6 oz pure alcoho l) Sex Assigned at Date Recorded Not on file documented as of this encounter Progress Notes Tylor Marr, OTR/L - 11/08/2014 1:51 PM CDT Encounter Date: 11/04/2014 Pt. : 1955 [facility] Occupational Therapy - Evaluation/Plan of Care Initial Certification Period: 11/04/2014 to 01/03/15 Referring Provider: Dr. Maria Esther Phan Referring Diagnosis: Parkinson's Disease Visit Diagnosis/IDC Code: Diagnosis (ICD9) ICD-9-CM ICD-10-CM 1. Other ill-defined conditions(799.89) 799.89 R69 2. Paralysis agitans ([facility]) 332.0 G20 Precautions: recent DBS surgery Orders: [...] Previous Occupational Therapy: Received at [facility]. Pain: Location: back pain when getting up rom chairs , gettign up from bed, getting in/out of car. Education: High school. 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 Living Environment: Private home, more than 1 level. Living Location: [facility]. Driving: Yes. Community Mobility: Independent community [...] limits. -Right upper extremity: within normal limits. -Anesthesia Technician: Left - 127 lbs=99%; Right -128 lbs.=99% [...] did undergo successful DBS surgery. 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 H e presents to address continuing [...] project manager. Prognosis: Excellent for established goals. PLAN [...] exercise program. Procedures: Occupation Therapy Evaluation (CPT 76004): 30 minutes ADL/Self management (CPT 97284): 15 minutes Therapeutic Exercise (CPT 38623): 15 minutes Total Treatment Time: 60 minutes. The electric system operator is completed by the therapist and the referring clinician's electronic signature certifies medical necessity for the plan above. Tylor Marr OTR/Stefan Lic#[id number] documented in this encounter Plan of Treatment Scheduled Referrals Name Type Priority Associated Diagnoses Order S [facility] Occupational Therapy Referral Routine Paralysis agitans (H [facility]) Ordered: 11/04/2014, Expires: 2014 documented as of this encounter Visit Diagnoses Diagnosis Other ill-defined conditions(799.89) - P rimary Other ill-defined conditions Paralysis agitans ([facility]) Paralysis agitans documented in this encounter Care Teams Senior Mechanical Designer Relationship Specialty Start Date End Date Lurdes Thomas MD PCP - General 06/18/14 12/11/19 documented as of this encounter
--- OUTSIDE RECORDS SUMMARY | 2022-04-21 03:54 | XMS_ITS | Encounter Summary ---
:1955 Author Organization [employer] Address [address] [place] [address] Care Team Providers Name Role Phone Lurdes Thomas MD Primary Care Provider Reason for Visit Reason Comments Follow-up Back Pain Encounter Details Date Type Department Care Team Description 05/19/2015 Office Visit [facility] Maria Esther Phan PD (Parkinson's disease) (Pr imary Dx); [address] Dae Amaro MD Right-sided low back pain with right-beck ed sciatica Drive [address] [place], [place] S [address] [place], [place] [phone] (Wo rk) Social History Tobacco Use Types Packs/Day Years Used Date Smoking Tobacco: Never Smokeless Tobacco: Never Alcohol Use Standard Drinks/Week Comments Yes 0 (1 standard drink = 0.6 oz pure alcoho l) Sex Assigned at Date Recorded Not on file documented as of this encounter Last Filed Vital Signs Vital Sign Reading Time Taken Comments Blood Pressure 122/78 05/19/2015 8:29 AM COMMAND AND CONTROL Pulse 76 05/19/2015 8:29 AM COMMAND AND CONTROL Temperature - - Respiratory Rate - - Oxygen Saturation - - Inhaled Oxygen Concentration - - Weight 90.6 kg (199 lb 12.8 oz) 05/19/2015 8:24 AM COMMAND AND CONTROL Height - - Body Mass Index 26.37 07/08/2014 8:56 AM COMMAND AND CONTROL documented in this encounter Progress Notes Maria Esther Phan MD - 05/19/2015 8:52 AM CST Dictated AND AND CONTROL documented in this encounter Plan of Treatment Not on filedocumented as of this encounter Visit Diagnoses Diagnosis PD (Parkinson's disease) (HRC) - Primary Paralysis agitans Right-sided low back pain with right-beck ed sciatica (HRC) documented in this encounter Care Teams Shortage Worker Relationship Specialty Start Date End Date Lurdes Thomas MD PCP - General 06/18/14 12/11/19 documented as of this encounter
--- OUTSIDE RECORDS SUMMARY | 2022-04-21 03:54 | XMS_ITS | Encounter Summary ---
:1955 Author Organization [employer] Address [address], [place] [address] Care Team Providers Name Role Phone Lurdes Thomas MD Primary Care Provider Reason for Visit Reason Comments Follow-up Encounter Details Date Type Department Care Team Description 07/08/2014 Office Visit [facility] Parashos, Sotirios Paralysis agitans [address] A, MD (Primary Dx) Drive [address] [place], [place] S [address] [place], [place] [phone] (Wo rk) Social History Tobacco Use Types Packs/Day Years Used Date Smoking Tobacco: Never Smokeless Tobacco: Never Alcohol Use Standard Drinks/Week Comments Yes 0 (1 standard drink = 0.6 oz pure alcoho l) Sex Assigned at Date Recorded Not on file documented as of this encounter Last Filed Vital Signs Vital Sign Reading Time Taken Comments Blood Pressure 138/78 07/08/2014 9:00 AM PERIPHERAL VASCULAR TECH Pulse 84 07/08/2014 9:00 AM PERIPHERAL VASCULAR TECH Temperature - - Respiratory Rate - - Oxygen Saturation - - Inhaled Oxygen Concentration - - Weight 98.5 kg (217 lb 3.2 oz) 07/08/2014 8:56 AM PERIPHERAL VASCULAR TECH Height 185.4 cm (6' 0.99) 07/08/2014 8:56 AM PERIPHERAL VASCULAR TECH Body Mass Index 28.66 07/08/2014 8:56 AM PERIPHERAL VASCULAR TECH documented in this encounter Patient Instructions Patient Doris Awad RN - 07/08/2014 8:56 AM CST Thank you for enrolling in freee. Please follow the instructions below to securely access your online medical record. freee allows you to send messages to your doctor, view your test results, renewyour prescriptions, schedule appointments, and more. How Do I Sign Up? 1. In your Internet browser, go to: [email or web address] 2. Click on the Enter Activation Code link under the New User? section. You will see the New Member Sign Up page. 3. Enter your freee Activation Code exactly as it appears below. You will not need to use this code after you???ve completed the sign-up process. If you do not sign up before the expiration date, youmust request a new code. freee Activation Code: [email or web address] Expires: 08/07/2014 8:56 AM 4. Enter your Date of (mm/dd/yyyy), Home Phone Number and Zip Code as indicated, then click Next. You will be taken to the next sign-up page 5. Create a freee ID. This will be your freee login ID and cannot be changed, so think of one that is secure and easy to remember. 6. Create a freee password. You can change your password at any time. 7. Enter your Security Question and Answer. This can be used at a later time if you forget your password. Click Next. 8. Enter your e-mail address. You will receive e-mail notification when new information is availablein freee. 9. Click Sign In. You can now view your medical record. Additional Information If you have questions, you can call [phone] to talk to our freee staff. Remember, freee is NOT to be used for urgent needs. For medical emergencies, dial 911. PHERAL VASCULAR TECH documented in this encounter Progress Notes Maria Esther Phan MD - 07/08/2014 9:59 AM CST Dictated PHERAL VASCULAR TECH documented in this encounter Plan of Treatment Not on filedocumented as of this encounter Visit Diagnoses Diagnosis Paralysis agitans (HRC) - Primary Paralysis agitans documented in this encounter Care Teams Elementary Spanish Teacher Relationship Specialty Start Date End Date Lurdes Thomas MD PCP - General 06/18/14 12/11/19 documented as of this encounter
--- OUTSIDE RECORDS SUMMARY | 2022-04-21 03:54 | XMS_ITS | Encounter Summary ---
:1955 Author Organization [employer] Address [address], [place] [address] Care Team Providers Name Role Phone Lurdes Thomas MD Primary Care Provider Encounter Details Date Type Department Care Team Description 09/25/2014 Notes/Orders [facility] Millie Pedraza MD [address] [place], [place] [address] [address] [facility] [address] (Wo rk) Social History Tobacco Use Types [...] filedocumented in this encounter Care Teams Commercial Real Estate Assistant Relationship Specialty Start Date End Date Lurdes Thomas MD PCP - General 06/18/14 12/11/19 documented as of this encounter
--- OUTSIDE RECORDS SUMMARY | 2022-04-21 03:54 | XMS_ITS | Encounter Summary ---
:1955 Author Organization [employer] Address [address] [address] Care Team Providers Name Role Phone Lurdse Thomas MD Primary Care Provider Encounter Details Date Type Department Care Team Description 10/14/2014 Notes/Orders [facility] Shawnee Hilario, Paralysis agitans [address] RN (Primary D x) [place] [address] Social History Tobacco Use Types [...] agitans documented in this encounter Care Teams It Application Support Analyst Relationship Specialty Start Date End Date Lurdes Thomas MD PCP - General 06/18/14 12/11/19 documented as of this encounter
--- OUTSIDE RECORDS SUMMARY | 2022-04-21 03:54 | XMS_ITS | Encounter Summary ---
:1955 Author Organization [employer] Address [address] [address] Care Team Providers Name Role Phone Lurdes Thomas MD Primary Care Provider Reason for Visit Reason Comments Other Encounter Details Date Type Department Care Team Description 12/09/2014 Telephone [facility] Doris Arauz, RN Other [address] corina Lamas [place], [place] [address] Social History Tobacco Use Types Packs/Day Years Used Date Smoking Tobacco: Never Smokeless Tobacco: Never Alcohol Use Standard Drinks/Week Comments Yes 0 (1 standard drink = 0.6 oz pure alcoho l) Sex Assigned at Date Recorded Not on file documented as of this encounter Nursing Notes Doris Arauz RN - 12/09/2014 4:59 PM CDT Saw [...] documented in this encounter Care Teams Director Business Relationship Specialty Start Date End Date Lurdes Thomas MD PCP - General 06/18/14 12/11/19 documented as of this encounter
--- OUTSIDE RECORDS SUMMARY | 2022-04-21 03:54 | XMS_ITS | Encounter Summary ---
:1955 Author Organization [employer] Address [address] [place] [address] Care Team Providers Name Role Phone Lurdes Thomas MD Primary Care Provider Reason for Visit Reason Comments Medication Questions Encounter Details Date Type Department Care Team Description 12/08/2014 Telephone [facility] Sheri Pearson, Medication Questions [address] corina [place] [address] Social History Tobacco Use Types Packs/Day Years [...] on filedocumented in this encounter Care Teams Vegetable Cutter Relationship Specialty Start Date End Date Lurdes Thomas MD PCP - General 06/18/14 12/11/19 documented as of this encounter
--- OUTSIDE RECORDS SUMMARY | 2022-04-21 03:54 | XMS_ITS | Encounter Summary ---
:1955 Author Organization [employer] Address [address] [place] [address] Care Team Providers Name Role Phone Lurdes Thomas MD Primary Care Provider Encounter Details Date Type Department Care Team Description 02/02/2015 Notes/Orders [facility] Katalina Laughlin, PT [address] [place] [address] [place] [address] [place], [place] [phone] (Wo rk) Social History Tobacco Use [...] 90 day(s). Katalina Laughlin PT Physical Therapist [place] License # [id number] documented in this encounter Plan of Treatment Not on filedocumented as of this encounter Visit Diagnoses Not on filedocumented in this encounter Care Teams Underground Production Foreperson Relationship Specialty Start Date End Date Lurdes Thomas MD PCP - General 06/18/14 12/11/19 documented as of this encounter
--- OUTSIDE RECORDS SUMMARY | 2022-04-21 03:54 | XMS_ITS | Encounter Summary ---
:1955 Author Organization [employer] Address [address], [place] [address] Care Team Providers Name Role Phone Lurdes Thomas MD Primary Care Provider Reason for Visit Reason Comments Sleep problems Back Pain Questions Encounter Details Date Type Department Care Team Description 12/02/2014 Office Visit [facility] Parashos, [place] Paralysis agitans [address] Dae Amaro MD (Primary Dx) Drive [address] [place], [place] S [address] [place], [place] [phone] (Wo rk) Social History Tobacco Use Types [...] Body Mass Index 27.73 07/08/2014 8:56 AM SKIN TANNER documented in this encounter Patient Instructions Patient InstructionsMaria Esther Phan MD - 12/02/2014 3:43 PM CDT Please call the [facility] nurse line for any questions, [...] agitans documented in this encounter Care Teams Music Professor Relationship Specialty Start Date End Date Lurdes Thomas MD PCP - General 06/18/14 12/11/19 documented as of this encounter
--- OUTSIDE RECORDS SUMMARY | 2022-04-21 03:54 | XMS_ITS | Encounter Summary ---
:1955 Author Organization [employer] Address [address], [place] [address] Care Team Providers Name Role Phone Lurdes Thomas MD Primary Care Provider Reason for Referral Specialty Diagnoses / Procedures Referred By Contact Refer red To Contact Maria Esther Phan MD [address] [place], [place] [address] Referral ID Status Reason Start Date Expiration Date Visits Requ ested Visits Authorized Reason for Visit Reason Comments Device Check Encounter Details Date Type Department Care Team Description 12/09/2014 Nursing Visit [facility] Doris Arauz, PD (Parkinson's disease) (Pr imary Dx); [address] [place] [address] Social History Tobacco Use Types [...] implantation. Surgeon: Dr. Gonzalez Rowland Surgery date/location: [facility] 09/09/14 Battery replacement: None Device type: [...] Amp: 2.5, PW: 60, Rate: 150. Pt z os mainframe systems programmer range: 2.1-2.7 Right SNT: 9 Negative, 10 Positive, Amp: 2.4, PW: 60, Rate: 150. Pt z os mainframe systems programmer range: 2.0-2.6 Total face to face [...] encounter Visit Diagnoses Diagnosis PD (Parkinson's disease) (HR) - Primary Paralysis agitans Paralysis agitans ([facility]) Paralysis agitans documented in this encounter Care Teams Optical Instrument Repairer Relationship Specialty Start Date End Date Lurdes Thomas MD PCP - General 06/18/14 12/11/19 documented as of this encounter
--- OUTSIDE RECORDS SUMMARY | 2022-04-21 03:54 | XMS_ITS | Encounter Summary ---
:1955 Author Organization [employer] Address [address], [place] [address] Care Team Providers Name Role Phone Lurdes Thomas MD Primary Care Provider Reason for Visit Reason Comments Sleep problems Encounter Details Date Type Department Care Team Description 11/12/2014 Telephone [facility] Doris Arauz, RN Sleep problems [address] corina Lamas [place], [place] [address] Social History Tobacco Use [...] filedocumented in this encounter Care Teams Hot Cell Technician Relationship Specialty Start Date End Date Lurdes Thomas MD PCP - General 06/18/14 12/11/19 documented as of this encounter
--- OUTSIDE RECORDS SUMMARY | 2022-04-21 03:54 | XMS_ITS | Encounter Summary ---
:1955 Author Organization [employer] Address [address] [address] Care Team Providers Name Role Phone Lurdes Thomas MD Primary Care Provider Encounter Details Date Type Department Care Team Description 09/17/2014 Notes/Orders [facility] The Paige Clifford SLP [address] [place], [place] [address] [place] [address] (Wo rk) Social History Tobacco [...] on filedocumented in this encounter Care Teams Pitching Coach Relationship Specialty Start Date End Date Lurdes Thomas MD PCP - General 06/18/14 12/11/19 documented as of this encounter
--- OUTSIDE RECORDS SUMMARY | 2022-04-21 03:54 | XMS_ITS | Encounter Summary ---
:1955 Author Organization [employer] Address [address], [place] [address] Care Team Providers Name Role Phone Lurdes Thomas MD Primary Care Provider Reason for Referral Specialty Diagnoses / Procedures Referred By Contact Refer red To Contact Maria Esther Phan MD [address] [place], [place] [address] Referral ID Status Reason Start Date Expiration Date Visits Requ ested Visits Authorized Reason for Visit Reason Comments Device Check Encounter Details Date Type Department Care Team Description 10/14/2014 Nursing Visit [facility] Shawnee Hilario, RN [place] [address] arriaga [place], [place] [address] Social History Tobacco Use [...] DBS implantation. Surgeon:Dr. Gonzalez Rowland Surgery date/location: [facility] 09/09/2014 Battery replacement: None Device type: Activa [...] 2.2V PW 60 Rate 150 Range on database programmer 2.1-2.7 Right STN 9 negative 10 positive 2.1V PW 60 Rate 150 Range on database programmer 1.8-2.6 If he wants to try to gradually increase amplitude at home paying attention to throat and speech he can or he can call us. He has a follow up programming appointment in 3-4 weeks. Total face to face programming time: 30 minutes Follow up: Mid October Supervising provider:Dr. Maria Esther Hilario, RN documented in this encounter Plan of Treatment Scheduled Referrals Name Type Priority Associated Diagnoses Order S chedule DBS PROGRAMMING CONSULT Referral Routine Paralysis agitans (HRC) Ordered: 10/14/2014, (AMB) Expires: 2014 documented as of this encounter Visit Diagnoses Diagnosis Paralysis agitans (HRC) Paralysis agitans documented in this encounter Care Teams Configuration Release Manager Relationship Specialty Start Date End Date Lurdes Thomas MD PCP - General 06/18/14 12/11/19 documented as of this encounter
--- OUTSIDE RECORDS SUMMARY | 2022-04-21 03:54 | XMS_ITS | Encounter Summary ---
:1955 Author Organization [employer] Address [address], [place] [address] Care Team Providers Name Role Phone Lurdes Thomas MD Primary Care Provider Encounter Details Date Type Department Care Team Description 08/20/2014 Notes/Orders [facility] Millie Pedraza MD [address] [place], [place] [address] [address] [facility] [address] (Wo rk) Social History Tobacco Use Types [...] filedocumented in this encounter Care Teams Manager Customer Relationship Specialty Start Date End Date Lurdes Thomas MD PCP - General 06/18/14 12/11/19 documented as of this encounter
--- OUTSIDE RECORDS SUMMARY | 2022-04-21 03:54 | XMS_ITS | Encounter Summary ---
:1955 Author Organization [employer] Address [address], [place] [address] Care Team Providers Name Role Phone Lurdes Thomas MD Primary Care Provider Reason for Visit Reason Comments Other Encounter Details Date Type Department Care Team Description 07/08/2014 Nursing Visit [facility] Doris Arauz, PD (Parkinson's [address] RN disease) ( Primary Dx) [place] [address] Social History Tobacco Use Types [...] Dr. Kp Phan. MD Doris Arauz, RN N SHOVELER documented in this encounter Plan of Treatment Not on filedocumented as of this encounter Visit Diagnoses Diagnosis PD (Parkinson's disease) (HRC) - Primary Paralysis agitans documented in this encounter Care Teams Legal Recovery Specialist Relationship Specialty Start Date End Date Lurdes Thomas MD PCP - General 06/18/14 12/11/19 documented as of this encounter
--- OUTSIDE RECORDS SUMMARY | 2022-04-21 03:55 | XMS_ITS | Encounter Summary ---
:1955 Author Organization [facility] Address [address] [address] Care Team Providers Name Role Phone Unavailable Primary Care Provider Unavailable Encounter Details Date Type Department Care Team Description 09/22/2010 PN Conversion Only Alexey Tolentino, [facility] [place] [address] [address] [place] [address] (Wo rk) Social History Tobacco Use Types Packs/Day Years Used Date Smoking Tobacco: Never Assessed Sex Assigned at Date Recorded Not on file documented as of this encounter Plan of Treatment Not on filedocumented as of this encounter Visit Diagnoses Not on filedocumented in this encounter
--- OUTSIDE RECORDS SUMMARY | 2022-04-21 03:55 | XMS_ITS | Encounter Summary ---
:1955 Author Organization [employer] Address [address], [place] [address] Care Team Providers Name Role Phone Lurdes Thomas MD Primary Care Provider Encounter Details Date Type Department Care Team Description 06/25/2014 Notes/Orders [facility] Millie Pedraza MD [address] [place], [place] [address] [address] [facility] N [address] (Wo rk) Social History Tobacco Use Types [...] Joya 49/57. 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 The main issue is severe difficulty moving when he is off, and the amount of time spent in the off state. He has some depression and sleep di.turbance. He seems like a good candidate for DBS. Dr. Phan will meet with him on 07/08/14/ RACTING ANALYST documented in this encounter Plan of Treatment Not on filedocumented as of this encounter Visit Diagnoses Not on filedocumented in this encounter Care Teams Quill Collector Relationship Specialty Start Date End Date Lurdes Thomas MD PCP - General 06/18/14 12/11/19 documented as of this encounter
--- OUTSIDE RECORDS SUMMARY | 2022-04-21 03:55 | XMS_ITS | Encounter Summary ---
:1955 Author Organization [facility] Address [address] [place] [address] Care Team Providers Name Role Phone Unavailable Primary Care Provider Unavailable Encounter Details Date Type Department Care Team Description 05/05/2009 Nursing Visit [facility] KARIN Sifuentes, [place] [address] [place], [place] [address] Social History Tobacco Use Types Packs/Day Years Used Date Smoking Tobacco: Never Assessed Sex Assigned at Date Recorded Not on file documented as of this encounter Plan of Treatment Not on filedocumented as of this encounter Visit Diagnoses Not on filedocumented in this encounter
--- OUTSIDE RECORDS SUMMARY | 2022-04-21 03:55 | XMS_ITS | Encounter Summary ---
:[address] [facility] Address [address], [place] [address] Care Team Providers Name Role Phone Unavailable Primary Care Provider Unavailable Encounter Details Date Type Department Care Team Description 12/04/2007 Hospital Encounter CONV METH PKDNela Arellano, RN [address] Casarez, [place] [address] Social History Tobacco Use Types Packs/Day Years [...]
--- OUTSIDE RECORDS SUMMARY | 2022-04-21 03:55 | XMS_ITS | Encounter Summary ---
:1955 Author Organization [employer] Address [address] [address] Care Team Providers Name Role Phone Lurdes Thomas MD Primary Care Provider Reason for Referral Specialty Diagnoses / Procedures Referred By Contact Refer red To Contact Maria Esther Phan MD [address] [place], [place] [address] Referral ID Status Reason Start Date Expiration Date Visits Requ ested Visits Authorized ICE ADVOCATE CONTACT Reason for Visit Reason Comments CONSULT Encounter Details Date Type Department Care Team Description 06/18/2014 Nursing Visit [facility] Doris Arauz, PD (Parkinson's disease) (Pr imary Dx); [address] [place] [address] Social History Tobacco Use Types Packs/Day Years Used Date Smoking Tobacco: Never Smokeless Tobacco: Never Alcohol Use Standard Drinks/Week Comments Yes 0 (1 standard drink = 0.6 oz pure alcoho l) Sex Assigned at Date Recorded Not on file documented as of this encounter Progress Notes Doris Arauz RN - 06/18/2014 5:16 PM CST Andrew came to [facility] for DBS TAC with his . States [...] CR: 900mg MoCA: Midi: 0 Vargas: 15 ICE ADVOCATE CONTACT documented in this encounter Plan of Treatment Scheduled Referrals Name Type Priority Associated Diagnoses Order S angélica [facility] Referral Routine Paralysis agitans (HRC) Ordered: 06/20/2014, CONSULT (AMB) Expires: 06/20 documented as of this encounter Visit Diagnoses Diagnosis PD (Parkinson's disease) (HRC) - Primary Paralysis agitans Paralysis agitans ([facility]) Paralysis agitans documented in this encounter Care Teams Data Compiler Relationship Specialty Start Date End Date Lurdes Thomas MD PCP - General 06/18/14 12/11/19 documented as of this encounter
--- OUTSIDE RECORDS SUMMARY | 2022-04-21 03:55 | XMS_ITS | Encounter Summary ---
:1955 Author Organization [employer] Address [address], [place] [address] Care Team Providers Name Role Phone Lurdes Thomas MD Primary Care Provider Reason for Referral Specialty Diagnoses / Procedures Referred By Contact Refer red To Contact Maria Esther Phan MD [address] [place], [place] [address] Referral ID Status Reason Start Date Expiration Date Visits Requ ested Visits Authorized MENTATION ENGINEER Reason for Visit Reason Comments Balance/gait Dysfunction Encounter Details Date Type Department Care Team Description 06/18/2014 Initial Consult [facility] Jordana Ham (Primary Dx); Therapy M, PT Abnormality of gait; [address] [place] [id number] Social History Tobacco Use Types Packs/Day Years Used Date Smoking Tobacco: Never Smokeless Tobacco: Never Alcohol Use Standard Drinks/Week Comments Yes 0 (1 standard drink = 0.6 oz pure alcoho l) Sex Assigned at Date Recorded Not on file documented as of this encounter Progress Notes Jordana Ham M, PT - 06/20/2014 8:03 AM CST Visit Date: 06/18/2014 Patient : 1955 Physical Therapy Parkinson Evaluation/Plan of Care [facility] Initial Certification Period: 06/18/2014 to 09/16/14 Referring Provider: Dr. Maria Esther Phan Visit Diagnosis/ICD: Diagnosis (ICD9) ICD-9-CM 1. Paralysis agitans (HCC) 332.0 2. Abnormality of gait 781.2 3. Risk for falls V15.88 Precautions: No precautions Onset/Referral Date: 06/18/2014 Reason for Referral: -Pre-Deep Brain Stimulation (Physical Therapist, Occupational Therapist, Speech and Language Pathologist, Biodiesel Division Manager, Registered Nurse). Orders: Evaluate and treat. [facility] Services: None. Exacerbation Date: 05/22/2014 Last Referring [...] residence: Stairs to enter. -Living location: [facility]. -Living environment: Urban-mostly paved [...] in winter. Communication: Clear. Low volume. 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 Total Treatment: 60 minutes The hot mill observer is completed by the therapist and the [...] Priority Associated Diagnoses Order S [facility] Physical Therapy Referral Routine Paralysis agitans (HRC) Ordered: 06/20/2014, Expires: 2014 documented as of this encounter Visit Diagnoses Diagnosis Paralysis agitans (HRC) - Primary Paralysis agitans Abnormality of gait Risk for falls Personal history of fall documented in this encounter Care Teams Macaroni Press Operator Relationship Specialty Start Date End Date Lurdes Thomas MD PCP - General 06/18/14 12/11/19 documented as of this encounter
--- OUTSIDE RECORDS SUMMARY | 2022-04-21 03:55 | XMS_ITS | Encounter Summary ---
:1955 Author Organization [facility] Address [address] [place] [address] Care Team Providers Name Role Phone Unavailable Primary Care Provider Unavailable Encounter Details Date Type Department Care Team Description 05/11/2006 Office Visit [place] Charanjit Webster M D Medicine [address] [place] [address] Social History Tobacco Use Types Packs/Day Years Used Date Smoking Tobacco: Never Assessed Sex Assigned at Date Recorded Not on file documented as of this encounter Plan of Treatment Not on filedocumented as of this encounter Visit Diagnoses Not on filedocumented in this encounter
--- OUTSIDE RECORDS SUMMARY | 2022-04-21 03:55 | XMS_ITS | Encounter Summary ---
:[address] [facility] [employer] Address [address] [address] Care Team Providers Name Role Phone Unavailable Primary Care Provider Unavailable Encounter Details Date Type Department Care Team Description 11/19/2012 Notes/Orders [facility] Katalina Laughlin, PT [address] [place] [address] [place] [address] [place], [place] [phone] (Wo rk) Social History Tobacco Use Types Packs/Day Years Used Date Smoking Tobacco: Never Assessed Sex Assigned at Date Recorded Not on file documented as of this encounter Progress Notes Katalina Laughlin, PT - 11/19/2012 9:58 AM CDT No show for scheduled PT consult appointment this morning. Katalina Laughlin PT, [facility] License # [id number] documented in this encounter Plan of Treatment Not on filedocumented as of this encounter Visit Diagnoses Not on filedocumented in this encounter
--- OUTSIDE RECORDS SUMMARY | 2022-04-21 03:55 | XMS_ITS | Encounter Summary ---
:1955 Author Organization [employer] Address [address] [address] Care Team Providers Name Role Phone Lurdes Thomas MD Primary Care Provider Encounter Details Date Type Department Care Team Description 06/18/2014 Notes/Orders [place] [facility] Doris Arauz, Paralysis agitans [address] RN (Primary D x) [place] [address] Social History Tobacco Use Types Packs/Day Years Used Date Smoking Tobacco: Never Smokeless Tobacco: Never Alcohol Use Standard Drinks/Week Comments Yes 0 (1 standard drink = 0.6 oz pure alcoho l) Sex Assigned at Date Recorded Not on file documented as of this encounter Progress Notes Doris Arauz, RN - 06/23/2014 5:11 PM CST Please sign pended orders for DBS TAC. Old orders had . Older the 90 days. Thanks. LE MAKER documented in this encounter Plan of Treatment Not on filedocumented as of this encounter Visit Diagnoses Diagnosis Paralysis agitans (HRC) - Primary Paralysis agitans documented in this encounter Care Teams Pediatric Clinical Dietician Relationship Specialty Start Date End Date Lurdes Thomas MD PCP - General 06/18/14 12/11/19 documented as of this encounter
--- OUTSIDE RECORDS SUMMARY | 2022-04-21 03:55 | XMS_ITS | Encounter Summary ---
:1955 Author Organization [facility] Address [address] [place] [address] Care Team Providers Name Role Phone Unavailable Primary Care Provider Unavailable Encounter Details Date Type Department Care Team Description 07/30/2007 PN Conversion Only PENTECOSTAL CONVERSION Social History Tobacco Use Types Packs/Day Years Used Date Smoking Tobacco: Never Assessed Sex Assigned at Date Recorded Not on file documented as of this encounter Plan of Treatment Not on filedocumented as of this encounter Visit Diagnoses Not on filedocumented in this encounter
--- OUTSIDE RECORDS SUMMARY | 2022-04-21 03:55 | XMS_ITS | Encounter Summary ---
:1955 Author Organization [employer] Address [address], [place] [address] Care Team Providers Name Role Phone Lurdes Thomas MD Primary Care Provider Reason for Referral Specialty Diagnoses / Procedures Referred By Contact Refer red To Contact Maria Esther Phan MD [address] [place], [place] [address] Referral ID Status Reason Start Date Expiration Date Visits Requ ested Visits Authorized T BASIC EDUCATION TEACHER Reason for Visit Reason Comments VOICE, LOSS OF Encounter Details Date Type Department Care Team Description 06/18/2014 Initial Consult [place] [facility] inson's disease (Primary Dx); Therapy M, ADMISSIONS DEAN Dysphonia; [address] [place] [phone] Social History Tobacco Use Types Packs/Day Years Used Date Smoking Tobacco: Never Smokeless Tobacco: Never Alcohol Use Standard Drinks/Week Comments Yes 0 (1 standard drink = 0.6 oz pure alcoho l) Sex Assigned at Date Recorded Not on file documented as of this encounter Progress Notes Paige Garcia, ADMISSIONS DEAN - 06/18/2014 5:17 PM CST Encounter Date: 06/18/2014 Patient : 1955 Speech Therapy - Parkinson's Disease Evaluation and Plan of Care [facility] Services Multidisciplinary Assessment Clinic Outpatient Evaluation [...] Previous Speech Therapy: Received at [facility]. Evaluation only 08/23/2007. Hand Dominance: Right Hearing Acuity: Within Functional Limits. Glasses: No. Education: High school. 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 Marital Status: . Living Environment: Lives with [...] Recommendations: Brief course of individual speech therapy. Mainframe Systems Administrator Speech Goal: Client will be able to be understood without repetition 80% of the time in their daily environment as measured by patient report. Mainframe Systems Administrator Swallowing Goal: -None Mainframe Systems Administrator Memory/Cognition Goal: None. Short Term Goals: -Independent in speech/voice home program. -Client will improve respiratory support for speech and voice to provide a basis for intelligible speech. -Client will increase articulation accuracy for improved speech intelligibility. -Client will decrease speech rate for improved intelligibility. Goals Achieved Today at [facility]: -Client and/or family verbalized comprehension of today's [...] family in agreement with care plan. The funeral director's assistant is completed by the therapist, and the referring clinician's electronic signature certifies medical necessity for the plan above. documented in this encounter Plan of Treatment Scheduled Referrals Name Type Priority Associated Diagnoses Order S [facility] Speech Therapy Referral Routine Paralysis agitans (HRC) Or dered: 06/20/2014, Expires: 2014 documented as of this encounter Visit Diagnoses Diagnosis Parkinson's disease (HRC) - Primary Dysphonia Paralysis agitans (HRC) Paralysis agitans documented in this encounter Care Teams Pearl Maker Relationship Specialty Start Date End Date Lurdes Thomas MD PCP - General 06/18/14 12/11/19 documented as of this encounter
--- OUTSIDE RECORDS SUMMARY | 2022-04-21 03:55 | XMS_ITS | Encounter Summary ---
:1955 Author Organization [employer] Address [address] [place] [address] Care Team Providers Name Role Phone No Primary/Referring, Phy Primary Care Provider Unavailable Reason for Visit Reason Comments Establish Care MEDICATION CHECK Encounter Details Date Type Department Care Team Description 01/28/2014 Office Visit Kiara Zepeda Hyperlipide cierra (Primary Dx); Rober Aviles MD Parkinson's disease; [address] [facility] [address] [place] [address] Screening for diabetes mellitus; [place] [id number] [place] [address] Screening for prostate cancer; [phone] Special screeni ng for malignant neoplasms, colon; [...] go directly to the clinic???s lab to pickers material handlers your test kit. There will be specific [...] COLLECTION KIT PREP (01/28/2014 9:30 AM CDT) [facility] gist Method Time Signature FIT Kit Prep Collection Kit [facility] Given to LABORATORIES Patient Specimen Anatomical Collection Method Collection Time Receive d Time (Source) Location / / Volume Laterality 01/28/2014 9:30 AM 4 9:31 CDT AM CDT Narrative [facility] - 02/04/2014 8:08 AM C DT Performed at [facility], [address] [place] [address] [address], [place] [address] Kiara Cristina MD LAB_1 Performing Organization Address City/State/ZIP Code Phon e Number [facility] [phone] PROSTATIC SPECIFIC ANTIGEN(SCREEN) (V76.44) (01/28/2014 9:30 AM CDT) P athologist Signature Prostatic Spec 0.97 0.00 - [facility] Ag 4.00 ng/ml LABORATORIES Specimen Anatomical Collection Method Collection Time Receive d Time (Source) Location / / Volume Laterality 01/28/2014 9:30 AM 4 9:31 CDT AM CDT Narrative [facility] - 01/28/2014 7:22 PM C DT Performed at [facility], [address] [place] [address] ??[phone] Kiara Cristina MD LAB_1 Performing Organization Address City/[facility]/ZIP Code Phon e Number [facility] [phone] (ABNORMAL) VITAMIN D 25-HYDROXY, TOTAL (V77.99) (01/28/2014 9:30 AM CDT) Patholo gist Method Time Signature Vitamin 14.8 (L) 30.0 - [facility] D,25-OH, Tot 80.0 LABORATORIES ng/mL Comment: Deficiency: ??< 20 ng/mL Insufficiency: ??20-29 ng/mL Optimum Level: ??30-80 ng/mL Possible Toxicity: > 80 ng/mL Specimen Anatomical Collection Method Collection Time Receive d Time (Source) Location / / Volume Laterality 01/28/2014 9:30 AM 4 9:31 CDT AM CDT Narrative [facility]ATOR[facility] - 01/28/2014 9:27 PM C DT Performed at [facility] , [address] [place] [address] Kiara Cristina MD LAB_1 Performing Organization Address City/State/ZIP Code Phon e Number [facility] [phone] LIVER PANEL(HEPATIC FUNCTION PANEL) (01/28/2014 9:30 AM CDT) [facility] Method Time Signature Alkaline 89 38 [...] 01/28/2014 7:22 PM C DT Performed at [facility], [address] [place] [phone] Kiara Cristina MD LAB_1 Performing Organization Address City/[facility] Phon e Number [facility] [phone] HGB A1C (01/28/2014 9:30 AM CDT) athologist Signature Hgb A1c 5.9 4.3 - 6.1 % [facility] Specimen Anatomical Collection Method Collection Time Receive d Time (Source) Location / / Volume Laterality 01/28/2014 9:30 AM 4 9:31 CDT AM CDT Narrative [facility] - 01/29/2014 9:55 AM C DT Performed at [facility], [address] [place] [address] ??[phone] Kiara Cristina MD LAB_1 Performing Organization Address City/[facility] Phon e Number [facility] [phone] (ABNORMAL) LIPID PANEL AND DIRECT LDL(IF NEEDED) (01/28/2014 9:30 AM CDT) Component Value Ref Test Analysis Performed At [facility] Range Method Time Signature Hours Fasting [...] 01/28/2014 7:22 PM C DT Performed at [facility], [address] [place] [address] ??[phone] Kiara Cristina MD LAB_1 Performing Organization Address City/State/[facility] Code Phon e Number [facility] [phone] documented in this encounter Visit Diagnoses Diagnosis Hyperlipidemia (HRC) - Primary Other and unspecified hyperlipidemia Parkinson's disease (HRC) Screening for diabetes mellitus Screening for prostate cancer Special screening for malignant neoplasm of prostate Special screening for malignant neoplasm s, colon Preventative health care Routine general medical examination at a health care facility documented in this encounter Care Teams Gear Finisher Relationship Specialty Start Date End Date No Primary/Referring, Phy PCP - General 01/22/14 documented as of this encounter
--- OUTSIDE RECORDS SUMMARY | 2022-04-21 03:55 | XMS_ITS | Encounter Summary ---
:1955 Author Organization [employer] Address [address] [place] [address] Care Team Providers Name Role Phone Lurdes Thomas MD Primary Care Provider Encounter Details Date Type Department Care Team Description 06/18/2014 Initial Consult [facility] Para lysis agitans Services (Primary Dx) [address] [place] [address] Social History Tobacco Use Types [...] Living Environment Lives with . Living Location: [place], [place] Leisure Activities: Not discussed during session. [...] agitans documented in this encounter Care Teams Store Management Trainee Relationship Specialty Start Date End Date Lurdes Thomas MD PCP - General 06/18/14 12/11/19 documented as of this encounter
--- OUTSIDE RECORDS SUMMARY | 2022-04-21 03:55 | XMS_ITS | Encounter Summary ---
:1955 Author Organization [facility] Address [address] [place] [address] Care Team Providers Name Role Phone Unavailable Primary Care Provider Unavailable Encounter Details Date Type Department Care Team Description 07/22/2008 Office Visit [place] Logan Gibson, Medicine [address] [place] [address] [place] [address] Social History Tobacco Use Types Packs/Day Years Used Date Smoking Tobacco: Never Assessed Sex Assigned at Date Recorded Not on file documented as of this encounter Plan of Treatment Not on filedocumented as of this encounter Visit Diagnoses Not on filedocumented in this encounter
--- OUTSIDE RECORDS SUMMARY | 2022-04-21 03:55 | XMS_ITS | Encounter Summary ---
:1955 Author Organization [employer] Address [address] [place] [address] Care Team Providers Name Role Phone No Primary/Referring, Lilliana Primary Care Provider Unavailable Reason for Visit Reason Comments Appt. Scheduled Encounter Details Date Type Department Care Team Description 05/20/2014 Telephone [place] [facility] Sheri Pearson RN Appt. Scheduled [address] corina [place], [place] [address] Social History Tobacco Use [...] on Monday. It is at [facility] at the [place] location. B TRAINER documented in this encounter Plan of Treatment Not on filedocumented as of this encounter Visit Diagnoses Not on filedocumented in this encounter Care Teams Solutions Market Consultant Relationship Specialty Start Date End Date No Primary/Referring, Lilliana PCP - General 01/22/14 documented as of this encounter
--- OUTSIDE RECORDS SUMMARY | 2022-04-21 03:55 | XMS_ITS | Encounter Summary ---
:1955 Author Organization [employer] Address [address], [place] [address] Care Team Providers Name Role Phone Unavailable Primary Care Provider Unavailable Encounter Details Date Type Department Care Team Description 08/17/2009 Office Visit [facility] Alexey Alvarez MD [address] [place] [address] [place] [address] [phone] (Wo rk) Social History Tobacco Use Types [...] signed by Alexey Garcia MD at 08/17/09 0830 Author: Alexey Garcia MD Service: (none) Author Type: Physician Filed: 09/11/104 Note Time: 08/17/09 0001 Status: Signed Branch Lending Manager: Alexey Garcia MD (Physician) SUBJECTIVE: 54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 He has no side effects. He formerly was with [facility] clinics and his insurance is changed. He has Parkinson's and sees Dr. Phan for its management in [place]. The remainder of the complete ROS is [...]
--- OUTSIDE RECORDS SUMMARY | 2022-04-21 03:55 | XMS_ITS | Encounter Summary ---
:1955 Author Organization [employer] Address [address] [place] [address] Care Team Providers Name Role Phone No Primary/Referring, Phy Primary Care Provider Unavailable Reason for Visit Reason Comments Questions Encounter Details Date Type Department Care Team Description 06/06/2014 Telephone [place] [facility] Doris Arauz, RN Questions [address], [place] [address] Social History Tobacco Use [...] Andrew called asking for number of [employer]. Emailed our reps and Lyric stated it was okay to give him her number: [phone] Called Andrew and gave him her number. KLAYER'S ASSISTANT documented in this encounter Plan of Treatment Not on filedocumented as of this encounter Visit Diagnoses Not on filedocumented in this encounter Care Teams Health Science Writer Relationship Specialty Start Date End Date No Primary/Referring, Lupilloy PCP - General 01/22/14 documented as of this encounter
--- OUTSIDE RECORDS SUMMARY | 2022-04-21 03:55 | XMS_ITS | Encounter Summary ---
:1955 Author Organization [facility] Address [address] [place] [address] Care Team Providers Name Role Phone Unavailable Primary Care Provider Unavailable Encounter Details Date Type Department Care Team Description 05/04/2009 PN Conversion Only LACE WEAVER [address] [place] [address] Social History Tobacco Use Types Packs/Day Years Used Date Smoking Tobacco: Never Assessed Sex Assigned at Date Recorded Not on file documented as of this encounter Plan of Treatment Not on filedocumented as of this encounter Visit Diagnoses Not on filedocumented in this encounter
--- OUTSIDE RECORDS SUMMARY | 2022-04-21 03:55 | XMS_ITS | Encounter Summary ---
:1955 Author Organization [employer] Address [address], [place] [address] Care Team Providers Name Role Phone Lurdes Thomas MD Primary Care Provider Reason for Referral Specialty Diagnoses / Procedures Referred By Contact Refer red To Contact Maria Esther Phan MD [address] [place], [place] [address] Referral ID Status Reason Start Date Expiration Date Visits Requ ested Visits Authorized S/MARKETING Reason for Visit Reason Comments Adl Problem Encounter Details Date Type Department Care Team Description 06/18/2014 Initial Consult [facility] (Primary Dx); Occupational Therapy Tylor Bates, OTR/L Other ill-defined conditions(799.89) [address] [employer] [facility] [place] [phone] Social History Tobacco Use Types Packs/Day Years Used Date Smoking Tobacco: Never Smokeless Tobacco: Never Alcohol Use Standard Drinks/Week Comments Yes 0 (1 standard drink = 0.6 oz pure alcoho l) Sex Assigned at Date Recorded Not on file documented as of this encounter Progress Notes Tylor Marr, JEANCARLOSR/Stefan - 06/18/2014 4:45 PM CST Encounter Date: 06/18/2014 Pt. : 1955 [facility] Occupational Therapy - Evaluation/Plan of Care [...] program. Completion of Pre DBS assessment and parks and recreation manager of recommendations. Past Medical History: Past medical history, medication, and allergies were reviewed in the electronic medical record. Pertinent to therapy: Restless leg syndrome. . Previous Occupational Therapy: Unknown. Pain: Location: Back pain in morning. Education: High school. 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 Living Location: [facility]. Driving: Yes. Community Mobility: Assistive device [...] limits. -Right upper extremity: within normal limits. -Surface Water Manager: Left - 99 lbs =75%; Right - [...] equipment for increased handwriting legibility using: Wide potato bucker pen. Aim big. Write slower. Response to [...] Achievement or Learning: Distance from clinic. Working daytime caregiver. Prognosis: Excellent for established goals. PLAN: Evaluation [...] exercise program. Procedures: Occupation Therapy Evaluation (CPT 70574): 30 minutes ADL/Self management (CPT 93397): 30 minutes Total Treatment Time: 60 minutes. The tax attorney is completed by the therapist and the referring clinician's electronic signature certifies medical necessity for the plan above. Tylor Marr OTR/L Lic#[id number] documented in this encounter Plan of Treatment Scheduled Referrals Name Type Priority Associated Diagnoses Order S [facility] Occupational Therapy Referral Routine Paralysis agitans (H RC) Ordered: 06/20/2014, Expires: 2014 documented as of this encounter Visit Diagnoses Diagnosis Paralysis agitans (HRC) - Primary Paralysis agitans Other ill-defined conditions(799.89) Other ill-defined conditions documented in this encounter Care Teams Blasting Worker Relationship Specialty Start Date End Date Lurdes Thomas MD PCP - General 06/18/14 12/11/19 documented as of this encounter
--- OUTSIDE RECORDS SUMMARY | 2022-04-21 03:55 | XMS_ITS | Encounter Summary ---
:1955 Author Organization [employer] Address [address] [place] [address] Care Team Providers Name Role Phone No Primary/Referring, Phy Primary Care Provider Unavailable Reason for Visit Reason Comments Questions Encounter Details Date Type Department Care Team Description 05/05/2014 Telephone [facility] Fabi Ray, RN Questions [address] [place], [place] [address] Social History Tobacco Use [...] Phan. He sees Dr. Phan now in [place] due to copay. Explained that best if results appointment can be at [facility] he can meet with the DBS nurse after. Also explained will need to see the DBS nurse at [place] post DBS if approved for surgery. Good comprehension of plan. Transferred to front line to set up results appointment with Dr. Phan and to review pre-DBS appointments. Post-note: Confirmed with front line that 05/26/13 appt is for MRI and neuropsych with Dr. Ramirez. BASE SOFTWARE TECHNICIAN documented in this encounter Plan of Treatment Not on filedocumented as of this encounter Visit Diagnoses Not on filedocumented in this encounter Care Teams Soldering Machine Tender Relationship Specialty Start Date End Date No Primary/Referring, Lupilloy PCP - General 01/22/14 documented as of this encounter
--- OUTSIDE RECORDS SUMMARY | 2022-04-21 03:55 | XMS_ITS | Encounter Summary ---
:1955 Author Organization [facility] Address [address] [place] [address] Care Team Providers Name Role Phone Unavailable Primary Care Provider Unavailable Encounter Details Date Type Department Care Team Description 07/22/2008 PN Conversion Only AIRPORT CONVERSION [address] [place] [address] Social History Tobacco Use Types Packs/Day Years Used Date Smoking Tobacco: Never Assessed Sex Assigned at Date Recorded Not on file documented as of this encounter Plan of Treatment Not on filedocumented as of this encounter Visit Diagnoses Not on filedocumented in this encounter
--- OUTSIDE RECORDS SUMMARY | 2022-04-21 03:55 | XMS_ITS | Encounter Summary ---
:1955 Author Organization [employer] Address [address] [place] [address] Care Team Providers Name Role Phone Unavailable Primary Care Provider Unavailable Encounter Details Date Type Department Care Team Description 08/17/2009 PN Conversion Only MARCO CONVERSION Alexey Garcia, [address] [place] [address] [address] [place], [place] [address] (Wo rk) Social History [...] greater than or equal to 20 ng/mL* *(Paulie MEEK et al. Pediatrics 2008; 122: 1128-38.) 18 years and older: Deficiency: Less than 20 ng/mL Insufficiency: 20-29 ng/mL Optimum Level: 30-80 ng/mL Possible Toxicity: Greater than 150 ng/m L Performed at [facility] [address] [place] [address] 8410 8 Specimen (Source) Anatomical Collection Method Collection Time Re ceived Time Location / / Volume Laterality 08/17/2009 8:30 AM CDT Alexey Garcia MD LAB_1 Performing Organization Address City/[facility] Phon e Number HP CONVERSION Prostatic Specific Antigen (F/U) (08/17/2009 8:30 AM CDT) P athologist Signature Prostate 0.6 0.0 - 4.0 HP CONVERSION Specific ng/mL Antigen Specimen (Source) Anatomical Collection Method Collection Time Re ceived Time Location / / Volume Laterality 08/17/2009 8:30 AM CDT Alexey Garcia MD LAB_1 Performing Organization Address City/[facility] Code Phon e Number HP CONVERSION Lipid [...] Alexey Garcia MD LAB_1 Performing Organization Address [facility] Phon e Number HP CONVERSION (ABNORMAL) GLUCOSE (08/17/2009 8:30 AM CDT) P athologist Signature Lab Glucose 105 (H) 60 - 100 HP CONVERSION mg/dL Specimen (Source) Anatomical Collection Method Collection Time Re ceived Time Location / / Volume Laterality 08/17/2009 8:30 AM CDT Alexey Garcia MD LAB_1 Performing Organization Address [facility] Phon e Number HP CONVERSION ALT (SGPT) (08/17/2009 8:30 AM CDT) [facility] gist Method Time Signature Alanine 33 4 - 55 HP CONVERSION Aminotransferase U/L Specimen (Source) Anatomical Collection Method Collection Time Re ceived Time Location / / Volume Laterality 08/17/2009 8:30 AM CDT Alexey Garcia MD LAB_1 Performing Organization Address [facility] Phon e Number HP CONVERSION documented in this encounter Visit Diagnoses Not on filedocumented in this encounter
--- OUTSIDE RECORDS SUMMARY | 2022-04-21 03:55 | XMS_ITS | Encounter Summary ---
:1955 Author Organization [facility] Address [address], [place] [address] Care Team Providers Name Role Phone Unavailable Primary Care Provider Unavailable Encounter Details Date Type Department Care Team Description 05/06/2008 Hospital Encounter CONV METH [id number] Nela Soriano, RN [address], [place] [address] Social History Tobacco Use Types Packs/Day Years [...]
--- OUTSIDE RECORDS SUMMARY | 2022-04-21 03:55 | XMS_ITS | Encounter Summary ---
:1955 Author Organization [employer] Address [address], [place] [address] Care Team Providers Name Role Phone No Primary/Referring, Phy Primary Care Provider Unavailable Reason for Visit Reason Comments Patient Calling Back Encounter Details Date Type Department Care Team Description 04/15/2014 Telephone [facility] Shawnee Hilario, RN Patient Calling Back [address] [place], [place] [address] Social History Tobacco Use [...] TAC. States he spoke with Doris at [facility] and has an appointment set up 05/26/14. Do not see this appointment in our system at [facility]. Transferred him to [facility]. Shawnee Hilario, RN - 04/15/2014 4:22 PM CST Patient left a message on the DBS nurse line stating he was returning a call about scheduling DBS. We had called him a month or so ago to tell him about our process and our understanding was he wanted to wait until After May because of insurance reasons. It may have been the front end web developer calling himto schedule. Left him a message asking him to speak to Gricelda. DESK MANAGER documented in this encounter Plan of Treatment Not on filedocumented as of this encounter Visit Diagnoses Not on filedocumented in this encounter Care Teams Research Instrumentation Technician Relationship Specialty Start Date End Date No Primary/Referring, Lupilloy PCP - General 01/22/14 documented as of this encounter
--- OUTSIDE RECORDS SUMMARY | 2022-04-21 03:55 | XMS_ITS | Encounter Summary ---
:1955 Author Organization [employer] Address [address] [address] Care Team Providers Name Role Phone Unavailable Primary Care Provider Unavailable Encounter Details Date Type Department Care Team Description 07/31/2007 Hospital Encounter CONV METH [id number] Nela Soriano, RN [address] [place] [address] Social History Tobacco Use Types Packs/Day Years [...] Therapist, Occupational Therapist, Speech and Language Pathologist, Public Health Sanitarian, Registered Nurse). Orders: Evaluate and treat. Exacerbation Date: 08/21/2007 Initial Certification Dates: 08/23/2007 to 09/21/07 SUBJECTIVE: Mobility Limitations Reported: Denies limitations. Balance/Falls in past 6 months: None reported. Motor Fluctuations: No. Pain Screen: No pain. Past Medical History: Unremarkable per patient report. Support System: Lives with primary nanny caregiver. Living Situation: Private home, more than 1 level. Living location: [facility]. Living Environment: Urban-mostly paved areas to ambulate. Community Mobilities: Driving-unrestricted. Frequency of Outings: Leaves home on a daily basis. Leisure Activities: Plays guitar. Formal Exercises: Walking-treadmill or indoors. Weight lifting. Yoga. Exercise Frequency: Several times per week. Communication: Clear. 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 Travels several times a year. Patient's [...] -Exercise handouts. Procedures: Physical Therapy Evaluation (CPT 77720) Therapeutic Exercise (CPT 33860) 30 minutes TOTAL TREATMENT TIME: 60 minutes. Electronically signed by: Sandrine Martinez, NICHOLE, 4551, 08/23/2007 *SH~REHAB~PTPARKEVA~ Shorthand Note completed on: 08/23/2007 3:15 PM documented in this encounter Plan of Treatment Not on filedocumented as of this encounter Visit Diagnoses Not on filedocumented in this encounter
--- OUTSIDE RECORDS SUMMARY | 2022-04-21 03:55 | XMS_ITS | Encounter Summary ---
:1955 Author Organization [employer] Address [address] [address] Care Team Providers Name Role Phone No Primary/Referring, Phmyah Primary Care Provider Unavailable Encounter Details Date Type Department Care Team Description 01/30/2014 Orders Only [facility] Kiara Cristina, Vitamin D deficiency [address] MD (Primary Dx) [place] [phone] [address] [phone] [place] [address] (Wo rk) Social History [...] deficiency documented in this encounter Care Teams Corporate Planning Manager Relationship Specialty Start Date End Date No Primary/Referring, Lilliana PCP - General 01/22/14 documented as of this encounter
--- OUTSIDE RECORDS SUMMARY | 2022-04-21 03:55 | XMS_ITS | Encounter Summary ---
:1955 Author Organization [employer] Address [address] [address] Care Team Providers Name Role Phone Lurdes Thomas MD Primary Care Provider Reason for Referral Specialty Diagnoses / Procedures Referred By Contact Refer red To Contact Maria Esther Phan MD [address] [place], [place] [address] Referral ID Status Reason Start Date Expiration Date Visits Requ ested Visits Authorized RONMENTAL ENGINEERING AIDE Reason for Visit Reason Comments Social Service Encounter Details Date Type Department Care Team Description 06/18/2014 Initial Consult [facility] Fabi Beverly Paralys is agitans Services DIESEL ENGINE FITTER [address] [place], [place] [address] Social History Tobacco Use [...] Deep Brain Stimulation (DBS) Assessment at the [facility]. Assessment: Current Social Situation Pt and his live in their home in [place]. The pt does have any children, but his has two. The pt is close to his step-daughter and her family. 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 He has been open about [...] Assessment Tools Vargas Depression Inventory- 15 PDQ 8- Caregiver Strain Index- 4 Plan/Recommendations: Psychosocial Support [...] have time to discuss during this session. Road Patcher provided contact information and explained availability to answer any further questions or concerns. Session was 50 minutes long. RONMENTAL ENGINEERING AIDE documented in this encounter Plan of Treatment Scheduled Referrals Name Type Priority Associated Diagnoses Order S chedule [facility] Referral Routine Paralysis agitans ([facility]) Ordered: 06/20/2014, CONSULT (AMB) Expires: 06/20 documented as of this encounter Visit Diagnoses Diagnosis Paralysis agitans (HRC) Paralysis agitans documented in this encounter Care Teams Mulcher Operator Relationship Specialty Start Date End Date Lurdes Thomas MD PCP - General 06/18/14 12/11/19 documented as of this encounter
--- OUTSIDE RECORDS SUMMARY | 2022-04-21 03:55 | XMS_ITS | Encounter Summary ---
:1955 [facility] Address [address] [address] Care Team Providers Name Role Phone Unavailable Primary Care Provider Unavailable Encounter Details Date Type Department Care Team Description 08/23/2007 Therapy CONV METH SP Jasbir Laughlin SLP [address] [facility] [place] [phone] (Wo rk) Social History Tobacco Use Types [...] 0322 Note Time: 08/23/07 0001 Status: Signed Vp Ancillary: Bárbara Laughlin CCC-CARPET INSPECTOR FINISHED (Speech and Language Pathologist) [facility] [place] Speech Pathology - Parkinson's Disease Evaluation Primary [...] No. Smoking: No. Education: High school. 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 Marital Status: . Living Arrangement: Lives with spouse. Safety in living environment: Patient feels safe in current living environment. Vulnerable adult assessment = low risk OBJECTIVE Behavioral Characteristics: Alert. Motivated. Cooperative. Tests Administered: [facility] Assessment of Communication in Parkinson's Disease - [...] One time evaluation and treatment only at [facility]. Chcf goals: -Maximize speech and voice for functional [...] 60 minutes. Electronically signed by: Bárbara Laughlin MA/LAVELL-CARPET INSPECTOR FINISHED, 5063, 08/23/2007 *SH~REHAB~SPARKEVAL~ Shorthand Note Completed on: 08/23/2007 1:19 PM documented in this encounter Plan of Treatment Not on filedocumented as of this encounter Visit Diagnoses Not on filedocumented in this encounter
--- OUTSIDE RECORDS SUMMARY | 2022-04-21 03:56 | XMS_ITS | Encounter Summary ---
:1955 Author Organization [facility] Address [address] [place] [address] Care Team Providers Name Role Phone Unavailable Primary Care Provider Unavailable Encounter Details Date Type Department Care Team Description 05/11/2006 PN Conversion Only AIRPORT CONVERSION [address] [place] [address] Social History Tobacco Use Types Packs/Day Years Used Date Smoking Tobacco: Never Assessed Sex Assigned at Date Recorded Not on file documented as of this encounter Plan of Treatment Not on filedocumented as of this encounter Visit Diagnoses Not on filedocumented in this encounter
== END 2022-02-26 14:51 | disposition home or self-care (01) ==
LOC: AMB 04-21 03:45
PROVIDERS: PCP Family Medicine; Visit Provider Family Medicine
DX: K56.609 Unspecified intestinal obstruction, unspecified as to partial versus complete obstruction (principal); G20 Parkinson's disease; Z43.1 Encounter for attention to gastrostomy
CPT/HCPCS: A0425; A0426